=== PATIENT | female | born 1955 | race Caucasian/White ===

== ENCOUNTER 2017-08-24 06:37 | Observation (INO) | payer OTHER ==
[~2017-08-24] VITALS: Ht 160 cm; Wt 105.8 kg
[~2017-08-24 06:37] MED LIST: GLUCOPHAGE500 MG; LEVEMIR100 UNIT/1; NOVOLOG MI100 UNITS/; TOPROL XL50 MG PO
[2017-08-24 07:13] LABS: BASOPHILS # (AUTO) 0.1 (0.0-0.1); EOSINOPHILS # (AUTO) 0.2 (0.0-0.4); EOSINOPHILS % 3.2 % (0.0-6.0); HEMATOCRIT 44.1 % (34.2-44.1); HEMOGLOBIN 13.2 g/dL (12.0-16.0); LYMPHOCYTES # (AUTO) 1.2 (1.0-3.2); LYMPHOCYTES % 23.4 % (18.0-39.1); MEAN CORPUSCULAR HEMOGLOBIN 26.4 pg (28-32); MEAN CORPUSCULAR HGB CONC 29.9 g/dL (31-35); MEAN CORPUSCULAR VOLUME 88.2 fL (81-99); MONOCYTES # (AUTO) 0.3 (0.2-0.8); MONOCYTES % 6.7 % (4.4-11.3); NEUTROPHILS # (AUTO) 3.3 (2.1-6.9); NEUTROPHILS % 65.1 % (38.7-80.0); PLATELET COUNT 188 x10e3/uL (140-360); RED CELL DISTRIBUTION WIDTH 14.8 % (11.7-14.4)
[2017-08-24 07:15] LABS: BILIRUBIN,URINE NEGATIVE (NEGATIVE); KETONES,URINE NEGATIVE (NEGATIVE); LEUKOCYTE ESTERASE ,URINE NEGATIVE (NEGATIVE); NITRITE,URINE NEGATIVE (NEGATIVE); PROTEIN,URINE DIPSTICK NEGATIVE (NEGATIVE); URINE UROBILINOGEN 0.2 mg/dL (0.2 - 1)
[2017-08-24 07:16] LABS: INR 0.94
[2017-08-24 07:17] LABS: PARTIAL THROMBOPLASTIN TIME 25.1 seconds (23.8-35.5)
[2017-08-24 07:18] LABS: CLARITY,URINE CLEAR (CLEAR); COLOR,URINE YELLOW (YELLOW)
[2017-08-24 07:24] LABS: ALBUMIN 3.6 g/dL (3.5-5.0); ALBUMIN/GLOBULIN RATIO 0.9 (0.8-2.0); ANION GAP 14.8 mmol/L (8-16); CALCIUM 9.2 mg/dL (8.4-10.2); CREATININE, SERUM 1.12 mg/dL (0.57-1.11); POTASSIUM 4.8 mmol/L (3.5-5.1)
[2017-08-24] MEDS ORDERED: SODIUM CHLORIDE 0.9% 1000ML 1,000 ML IV STA (07:35)
[2017-08-24 07:42] LABS: CREATINE KINASE MB 1.7 ng/mL (0.00-5.00)
--- NOTE | 2017-08-24 07:42 | Diagnostic Imaging Report ---
PROCEDURE:CHEST 2 VIEWS TECHNIQUE:PA and lateral chest totaling 2 radiographs INDICATION:Shortness of breath and syncope COMPARISON:Patients [facility], , CHEST 2 VIEWS, 10/15/2016, 23:42. FINDINGS: Bilateral interstitial opacity, cardiomegaly and central vascular prominence. No sizable pleural effusion. Stable elevation of the right hemidiaphragm. Intact skeleton. CONCLUSION: Cardiomegaly with pulmonary edema. Dictated by: Lamonte Munoz M.D. on 08/24/2017 at 7:51 Electronically approved by: Lamonte Munoz M.D. on 08/24/2017 at 7:51
[2017-08-24 07:43] LABS: THYROID STIMULATING HORMONE 1.123 uIU/mL (0.350-4.940)
[2017-08-24 07:50] LABS: BACTERIA,URINE FEW /HPF; EPITHELIAL CELLS,URINE FEW /LPF; RBC,URINE 0-5 /HPF (0-5); WBC,URINE (MAN) 0-5 /HPF (0-5)
--- NOTE | 2017-08-24 07:57 | Diagnostic Imaging Report ---
History: Fall, syncope Comparison studies:CT head 09/13/2014 Technique: Axial images were obtained from the brain and cervical spine. Coronal and sagittal images reconstructed from the axial data. Intravenous contrast: None Findings: Head CT: Scalp/skull: No abnormalities. No fractures, blastic or lytic lesions. Brain sulci: Appropriate for age. Ventricles: Normal in size and configuration. No hydrocephalus. Extra-axial spaces: No masses. No fluid collections. Parenchyma: No abnormal densities. No masses, hemorrhage, acute or chronic cortical vascular insults. Sellar/suprasellar region: No abnormalities. Craniocervical junction: Patent foramen magnum. No Chiari one malformation. Cervical spine CT: Fractures: None. Soft tissues: Hypodense right lobe thyroid nodule with peripheral and central small calcifications measuring approximately 1.2 cm. Atlantoaxial articulation: Mild degenerative changes without acute abnormality. Alignment: Normal lordosis. No scoliosis. Cervicomedullary junction: No abnormalities. Patent foramen magnum. Vertebrae: No infection or neoplasm. Degenerative changes: Facet hypertrophy and uncinate process hypertrophy without significant canal stenosis or foraminal narrowing. Incidental findings: Atherosclerotic calcifications of the aortic arch and carotid bulbs. Impression: Head CT: 1. No acute abnormality. Cervical spine CT: 1. No acute abnormalities. Degenerative changes 2. Cannot exclude ligament, spinal cord and or vascular abnormalities on the basis of this examination. 3. Right thyroid nodule with peripheral and central small calcifications recommend further evaluation with nonemergent thyroid ultrasound Signed by: DR Riley Maya M.D. on 08/24/2017 7:54 AM
[2017-08-24] MEDS ORDERED: ASPIRIN 81 MG CHEW TAB PO ONE (10:45)
[2017-08-24] MEDS ORDERED: SODIUM CHLORIDE 0.9% 1000ML 1,000 ML ONE (11:15)
--- OUTSIDE RECORDS SUMMARY | 2017-08-24 13:02 | XMS REPORT ---
Author [facility] Address Unknown Phone Unavailable Care Team Providers Care Plan Rep Name Role Phone FLO TOLBERT Unavailable Unavailable Problems This patient has no known problems. Allergies, Adverse Reactions, Alerts This patient has no known allergies or adverse reactions. Medications This patient has no known medications. Results Test Description Test Time Test Comments Text Results Atomic Results Result Comments CHEST 2 VIEWS [facility] [address] [address] Patient Name: KALYANI TALAVERA MR #: [id number] : 1955 Age/Sex: 62/F Req #: [id number] Adm Physician: Ordered by: FLO TOLBERT MD Report #: [id number] Location: ER Room/Bed: Procedure: [id number] DX/CHEST 2 VIEWS Exam Date: 08/24/17 Exam Time: 0715 REPORT STATUS: Signed PROCEDURE: CHEST 2 VIEWS TECHNIQUE: PA and lateral chest totaling 2 radiographs INDICATION: Shortness of breath and syncope COMPARISON: [facility], DX, CHEST 2 VIEWS, 2016, 23:42. FINDINGS: Bilateral interstitial opacity, cardiomegaly and central vascular prominence. No sizable pleural effusion. Stable elevation of the right hemidiaphragm. Intact skeleton. CONCLUSION: Cardiomegaly with pulmonary edema. Dictated by: Lachelle Munoz M.D. on 08/24/2017 at 7:51 Electronically approved by: Lachelle Munoz M.D. on 08/24/2017 at 7:51 Dictated By: LACHELLE MUNOZ MD 0 Transcribed By: ZOLTAN on 08/24/17750 COPY TO: FLO TOLBERT MD CT CERVICAL SPINE [place] [address] [address] Patient Name: KALYANI TALAVERA MR #: [id number] : 1955 Age/Sex: 62/F Req #: [id number] Adm Physician: Ordered by: FLO TOLBERT MD Report #: [id number] Location: ER Room/Bed: Procedure: [id number] CT/CT CERVICAL SPINE WO Exam Date: 08/24/17 Exam Time: 0710 REPORT STATUS: Signed History: Fall, syncope Comparison studies:CT head 09/13/2014 Technique: Axial images were obtained from the brain and cervical spine. Coronal and sagittal images reconstructed from the axial data. Intravenous contrast: None Findings: Head CT: Scalp /skull: No abnormalities. No fractures, blastic or lytic lesions. Brain sulci: Appropriate for age. Ventricles: Normal in size and configuration. No hydrocephalus. Extra-axial spaces: No masses. No fluid collections. Parenchyma: No abnormal densities. No masses, hemorrhage, acute or chronic cortical vascular insults. Sellar/suprasellar region: No abnormalities. Craniocervical junction: Patent foramen magnum. No Chiari one malformation. Cervical spine CT: Fractures: None. Soft tissues: Hypodense right lobe thyroid nodule with peripheral and central small calcifications measuring approximately 1.2 cm. Atlantoaxial articulation: Mild degenerative changes without acute abnormality. Alignment: Normal lordosis. No scoliosis. Cervicomedullary junction: No abnormalities. Patent foramen magnum. Vertebrae: No infection or neoplasm. Degenerative changes: Facet hypertrophy and uncinate process hypertrophy without significant canal stenosis or foraminal narrowing. Incidental findings: Atherosclerotic calcifications of the aortic arch and carotid bulbs. Impression: Head CT: 1. No acute abnormality. Cervical spine CT: 1. No acute abnormalities. Degenerative changes 2. Cannot exclude ligament, spinal cord and or vascular abnormalities on the basis of this examination. 3. Right thyroid nodule with peripheral and central small calcifications recommend further evaluation with nonemergent thyroid ultrasound Signed by : DR Riley Maya M.D. on 08/24/2017 7:54 AM Dictated By: RILEY WYNN MD 3 Transcribed By: JIM on 08/24/17753 COPY TO: FLO TOLBERT MD CT BRAIN [place] [address] [address] Patient Name: KALYANI TALAVERA MR #: [id number] : 1955 Age/Sex: 62/F Req #: [id number] Adm Physician: Ordered by: FLO TOLBERT MD Report #: [id number] Location: ER Room/Bed: Procedure: [id number] CT/CT BRAIN WO Exam Date: 08/24/17 Exam Time: 0710 REPORT STATUS: Signed History: Fall, syncope Comparison studies:CT head 09/13/2014 Technique: Axial images were obtained from the brain and cervical spine. Coronal and sagittal images reconstructed from the axial data. Intravenous contrast: None Findings: Head CT: Scalp/skull : No abnormalities. No fractures, blastic or lytic lesions. Brain sulci : Appropriate for age. Ventricles: Normal in size and configuration. No hydrocephalus. Extra-axial spaces: No masses. No fluid collections. Parenchyma: No abnormal densities. No masses, hemorrhage, acute or chronic cortical vascular insults. Sellar/suprasellar region: No abnormalities. Craniocervical junction: Patent foramen magnum. No Chiari one malformation. Cervical spine CT: Fractures: None. Soft tissues: Hypodense right lobe thyroid nodule with peripheral and central small calcifications measuring approximately 1.2 cm. Atlantoaxial articulation: Mild degenerative changes without acute abnormality. Alignment: Normal lordosis. No scoliosis. Cervicomedullary junction: No abnormalities. Patent foramen magnum. Vertebrae: No infection or neoplasm. Degenerative changes: Facet hypertrophy and uncinate process hypertrophy without significant canal stenosis or foraminal narrowing. Incidental findings: Atherosclerotic calcifications of the aortic arch and carotid bulbs. Impression: Head CT: 1. No acute abnormality. Cervical spine CT: 1. No acute abnormalities. Degenerative changes 2. Cannot exclude ligament, spinal cord and or vascular abnormalities on the basis of this examination. 3. Right thyroid nodule with peripheral and central small calcifications recommend further evaluation with nonemergent thyroid ultrasound Signed by : DR Riley Maya M.D. on 08/24/2017 7:54 AM Dictated By: RILEY WYNN MD [id number] Transcribed By: JIM on 08/24/17 3263 COPY TO: FLO TOLBERT MD
[2017-08-24] MEDS ORDERED: DEXTROSE 50% SYRINGE 50 ML IV PRN (15:00)
[2017-08-24] MEDS ORDERED: FUROSEMIDE INJ 10 MG/ML 4 ML VIAL IV ONE (15:00)
[2017-08-24 15:38] LABS: CREATINE KINASE 41 IU/L (29-168)
[2017-08-24 17:11] VITALS: BP 138/78
[2017-08-24 17:13] VITALS: BP 138/78
[2017-08-24] MEDS: INSULIN REGULAR, HUMAN 100 UNIT/1 ML 3ML VIAL SQ SCH ×2 (17:51→21:42)
[2017-08-24 18:41] VITALS: BP_SYST 129; BP_SYST 140; BP_DIAS 64; BP_DIAS 70
[2017-08-24 18:42] VITALS: BP 130/69
[2017-08-24 20:00] VITALS: BP 136/67
[2017-08-24] MEDS: HYDROCODONE/APAP 5MG-325MG TAB PO PRN (21:42)
[2017-08-25] VITALS (7 sets, daily range): BP systolic 137–172; BP diastolic 61–73
[2017-08-25 01:08] LABS: CREATINE KINASE MB 1.3 ng/mL (0.00-5.00)
[2017-08-25] MEDS: HYDROCODONE/APAP 5MG-325MG TAB PO PRN ×2 (03:10→21:45)
[2017-08-25 07:00] LABS: BASOPHILS # (AUTO) 0.1 (0.0-0.1); BASOPHILS % 1.3 % (0.0-1.0); EOSINOPHILS # (AUTO) 0.2 (0.0-0.4); EOSINOPHILS % 5.1 % (0.0-6.0); HEMATOCRIT 39.4 % (34.2-44.1); HEMOGLOBIN 11.9 g/dL (12.0-16.0); LYMPHOCYTES # (AUTO) 1.4 (1.0-3.2); LYMPHOCYTES % 28.8 % (18.0-39.1); MEAN CORPUSCULAR HEMOGLOBIN 26.3 pg (28-32); MEAN CORPUSCULAR HGB CONC 30.2 g/dL (31-35); MONOCYTES # (AUTO) 0.4 (0.2-0.8); MONOCYTES % 8.7 % (4.4-11.3); NEUTROPHILS # (AUTO) 2.6 (2.1-6.9); NEUTROPHILS % 55.5 % (38.7-80.0); PLATELET COUNT 177 x10e3/uL (140-360); RED BLOOD COUNT 4.53 x10e6/uL (3.6-5.1); RED CELL DISTRIBUTION WIDTH 14.8 % (11.7-14.4)
[2017-08-25 07:21] LABS: ALBUMIN 3.3 g/dL (3.5-5.0); ANION GAP 12.7 mmol/L (8-16); CALCIUM 8.8 mg/dL (8.4-10.2); CHOL/HDL RATIO 6.2 (3.0-3.6); CREATININE, SERUM 1.05 mg/dL (0.57-1.11); POTASSIUM 4.7 mmol/L (3.5-5.1)
[2017-08-25] MEDS: FUROSEMIDE INJ 10 MG/ML 4 ML VIAL IV SCH (08:50)
[2017-08-25] MEDS: ASPIRIN 81 MG ENTERIC COATED PO SCH (08:50)
[2017-08-25] MEDS: INSULIN REGULAR, HUMAN 100 UNIT/1 ML 3ML VIAL SQ SCH ×4 (08:51→21:15)
--- NOTE | 2017-08-25 14:24 | Consultation ---
DATE OF CONSULTATION: August 24, 2017 REQUESTING PHYSICIAN: Dr. Lucille Huerta. REASON FOR CONSULTATION: Syncope. HISTORY OF PRESENT ILLNESS: This is a 62-year-old woman with history of diabetes mellitus, hypertension, and hyperlipidemia who presented after an episode of syncope. She reports she had been feeling well when she went to sleep last night. This morning, she woke up around 2:30 in order to go to the rest room. She felt shaky and checked her blood sugar which she noted was 41. She therefore made a cup of coffee with some sugar in an attempt to bring up her blood glucose. While she was sitting at the table, she felt a little lightheadedness and lost consciousness. She does not recall the episode but reports she woke up on the floor and hit her head against a table on the way down. She denied any preceding chest pain or palpitations. However, she does endorse lower extremity edema for some time as well as 2-pillow orthopnea and PND for the last month and dyspnea on exertion about approximately 20 feet for the last 2 to 3 weeks. REVIEW OF SYSTEMS: Negative except as per HPI. PAST MEDICAL HISTORY 1. Diabetes mellitus. 2. Hypertension. 3. Hyperlipidemia. PAST SURGICAL HISTORY: Appendectomy and foot surgery. ALLERGIES: NO KNOWN DRUG ALLERGIES. MEDICATIONS: Please see EMR. SOCIAL HISTORY: She quit smoking 10 years ago. Previous smoker a pack and half a day for 15 years. No alcohol or illicit drugs. FAMILY HISTORY: Pertinent for sister with coronary artery bypass. PHYSICAL EXAMINATION VITAL SIGNS: Temperature 98.4 degrees, pulse 61, respiratory rate 18, blood pressure 138/78, and oxygen saturation 96% on room air. GENERAL: Obese woman, in no acute distress. HEENT: Normocephalic, atraumatic. Pupils equal. No scleral icterus. NECK: Supple. No thyromegaly, cervical lymphadenopathy, or carotid bruits. LUNGS: Clear to auscultation other than crackles at the bases. No wheezes. CARDIOVASCULAR: Normal rate, regular rhythm. No murmur. Normal S1, S2. ABDOMEN: Soft and nontender. EXTREMITIES: Trace edema. NEUROLOGIC: Nonfocal exam. LABS: WBC 5.05, hemoglobin 13.2, hematocrit 44.1, and platelets 188,000. Sodium 138, chloride 103, CO2 of 25, BUN 22, and creatinine 1.12. Troponin 0.014. BNP 17.8. EKG: Sinus tachycardia with anteroseptal infarct, age undetermined. IMPRESSIONS 1. Syncope. 2. Abnormal electrocardiogram. 3. Diabetes mellitus. 4. Hypertension. 5. Hyperlipidemia. 6. Chronic kidney disease. RECOMMENDATIONS: Maintain patient on telemetry to monitor for any arrhythmias that explain the patient's syncope. I will obtain carotid Dopplers. Echocardiogram did not reveal any cardiac etiologies for the patient's syncope, possibly could be related to patient's low blood sugar. In addition, the patient has diastolic heart failure. Agree with diuresis. Monitor creatinine closely. Patient will need ischemic evaluation given her risk factors and abnormal EKG once she is improved. If she is symptom-free, this may be done as an outpatient. Thank you for this consult. We will continue to follow. Job#: [id number] CF MTDCalvin
--- NOTE | 2017-08-25 15:18 | Progress Note ---
DATE: August 25, 2017 CARDIOLOGY PROGRESS NOTE SUBJECTIVE: Patient denies chest pain. She is still having some shortness of breath. She is currently undergoing carotid Doppler at bedside. OBJECTIVE VITAL SIGNS: Temperature 97 degrees, pulse 72, respiratory rate 18, blood pressure 140/63, and oxygen saturation 96% on room air. GENERAL: Obese woman, awake, alert, in no acute distress. LUNGS: Clear to auscultation bilaterally other than crackles at the bases. CARDIOVASCULAR: Normal rate, regular rhythm. No murmur. Normal S1, S2. ABDOMEN: Soft and nontender. EXTREMITIES: Trace edema. CARDIAC MEDICATIONS 1. Furosemide 40 mg IV daily. 2. Aspirin 81 mg p.o. q.a.m. LABS: WBC 4.69, hemoglobin 11.9, hematocrit 39.4, platelets 177. Sodium 139, potassium 4.7, chloride 103, CO2 28, BUN 19, creatinine 1.05. Troponin 0.006. Cholesterol 181, triglycerides 216, LDL 109, HDL 29. Echocardiogram with normal LV size and function with mild LVH. Pseudonormal LV filling pattern consistent with elevated LA pressures. Trivial pericardial effusion was noted. TELEMETRY: Normal sinus rhythm. IMPRESSION 1. Syncope. 2. Acute diastolic heart failure. 3. Diabetes mellitus. 4. Hypertension. 5. Hyperlipidemia. RECOMMENDATIONS: Continue diuresis. Strict I's and O's as well as daily weights. Monitor creatinine closely with diuresis. Continue patient on telemetry while admitted. Patient will need an outpatient stress test for further evaluation of her abnormal EKG. Thank you for this consult. We will continue to follow. Job#: [id number]
[2017-08-25] MEDS ORDERED: METOPROLOL SUCCINATE 50 MG TAB XL PO ONE (22:45)
[2017-08-26] MEDS: HYDROCODONE/APAP 5MG-325MG TAB PO PRN (04:46)
[2017-08-26 05:00] VITALS: BP 181/70
[2017-08-26] MEDS: ASPIRIN 81 MG ENTERIC COATED PO SCH (07:45)
[2017-08-26] MEDS: FUROSEMIDE INJ 10 MG/ML 4 ML VIAL IV SCH (07:45)
[2017-08-26] MEDS: INSULIN REGULAR, HUMAN 100 UNIT/1 ML 3ML VIAL SQ SCH ×2 (07:46→11:30)
[2017-08-26 07:51] VITALS: BP 168/77
[2017-08-26 08:30] VITALS: BP 168/77
[2017-08-26] MEDS ORDERED: METOPROLOL SUCCINATE 50 MG TAB XL PO SCH (09:00)
--- NOTE | 2017-08-26 12:24 | Progress Note ---
DATE: NO DICTATION. 31 seconds. Job#: [id number] GH
[2017-08-26 12:30] VITALS: BP 144/64
--- NOTE | 2017-08-26 14:09 | Progress Note ---
DATE: LOCATION: Room 175. PATIENT OF: Dr. Lucille Huerta. The patient is with palpitations and syncopal spell. The patient has remained stable, having no further spells of syncope. CAT scan of the brain showed no acute pathology. The blood pressure has been 160/77 and pulse 86. The blood sugar has remained as high as 296. The carotid Doppler showed no acute pathology. The patient is feeling okay. No speech disorder. No visual disturbance. No focal paresthesia. Patient was explained there is no evidence to suspect any acute cerebrovascular event. The syncopal spell seems most likely related to hypoglycemia. The patient was advised to be careful with the blood sugar, try to lose some weight and whenever the attending physician wants to discharge her, will review labs. Job#: [id number] KEVIN
[2017-08-26 16:00] VITALS: BP 118/62
--- NOTE | 2017-08-27 09:09 | Consultation ---
DATE OF CONSULTATION: August 25, 2017 at 10 a.m. NEUROLOGICAL CONSULTATION REASON FOR CONSULTATION: Syncopal spells. This is a 62-year-old female who has history of diabetes, hypertension. The patient states on the day of admission she woke up at 2 o'clock in the morning. She went to the bathroom and then she went to the kitchen to have a cup of coffee. She checked her blood sugar and it was 41. Then she sat down and she started feeling lightheaded and apparently she passed out. She lives alone. There was no evidence of tongue biting or sphincter dysfunction. She never had an episode like this in the past. At the present time, she is doing fine with no headaches, no dizziness, no speech or swallowing difficulty, no focal or focal weakness. No chest pain or palpitations. PAST MEDICAL HISTORY: History of hypertension, diabetes mellitus type 2, hyperlipidemia, obesity. PAST SURGICAL HISTORY: Appendectomy. MEDICATIONS: Have been reviewed electronically. SOCIAL HISTORY: She denies smoking. She quit several years ago. She does not drink alcohol. FAMILY HISTORY: Some with coronary artery disease. REVIEW OF SYSTEMS: All 12 steps negative, except what is described above. PHYSICAL EXAMINATION VITAL SIGNS: Blood pressure 137/61, pulse 72, temperature 96.6. Weight 230 pounds. LUNGS: Clear to auscultation. HEART: Regular sinus rhythm with no murmur. ABDOMEN: Soft and nontender. No organomegaly. LOWER EXTREMITIES: Some mild swelling of both lower extremities, no cyanosis, no clubbing. NEUROLOGIC: Alert and oriented x3. Speech is clear with no dysarthria or dysphasia. Cranial nerves: Pupils are both equal and reactive. Extraocular movements were full. No facial weakness. Facial sensation normal. Tongue protrudes midline. Motor power: Upper and lower extremities showed no evidence of weakness in either proximal or distal muscles. Deep tendon reflexes: Triceps, biceps, radials 1+. Knee jerk 1+. Ankle jerk absent bilaterally. Plantar stimulation down bilaterally. The patient states that she has neuropathy, diabetic type. Coordination: [id number]-bn-[id number] is normal. HEAD: Normocephalic. NECK: Supple. Carotid pulsations were present bilaterally with no bruits. LABORATORY DATA: CBC shows a white count of 4600 with a hemoglobin 11.9, hematocrit 39.4 and platelets 177,000. Chemistry: Sodium 139, potassium 4.7, BUN 19, creatinine 1.5. Estimated GFR 53. Blood sugar fluctuating between 230 and 296. Liver enzymes are all normal. Triglycerides elevated at 216, cholesterol 181. Urinalysis negative. IMAGING: CAT scan of the brain shows no acute pathology, chronic small vessel disease. Cervical spine also showed no acute pathology. Carotid Doppler showed no evidence of significant flow impairment. IMPRESSION 1. Syncopal spell, unspecified. 2. Acute hypoglycemia. 3. Diabetes mellitus type 2. 4. Hypertension. 5. Hyperlipidemia. 6. Obesity. RECOMMENDATIONS: The patient was explained about the findings. Syncope does not seem to be related to cardiovascular problem or disease. Will discuss with the attending physician. Will see her tomorrow. Job#: [id number]
== END 2017-08-26 16:20 | disposition home or self-care (01) ==
LOC: ER 06:37 → ERHOLD 13:00 → IMCU 16:11
PROVIDERS: ADMIT Internal Medicine; ATTEND Internal Medicine
DX: R55 Syncope and collapse (principal); E11.649 Type 2 diabetes mellitus with hypoglycemia without coma; E11.42 Type 2 diabetes mellitus with diabetic polyneuropathy; E78.5 Hyperlipidemia, unspecified; J44.9 Chronic obstructive pulmonary disease, unspecified; R94.31 Abnormal electrocardiogram [ECG] [EKG]; Z87.891 Personal history of nicotine dependence; E66.9 Obesity, unspecified; I13.0 Hypertensive heart and chronic kidney disease with heart failure and stage 1 through stage 4 chronic kidney disease, or unspecified chronic kidney disease; I50.31 Acute diastolic (congestive) heart failure; N18.9 Chronic kidney disease, unspecified; Z68.41 Body mass index [BMI] 40.0-44.9, adult
CPT/HCPCS: 36415 ×3; 70450; 71020; 72125; 80053 ×2; 80061; 81001; 82550 ×2; 82553 ×2; 82948 ×3; 83036; 83735; 83880; 84443; 84484 ×2; 85025 ×2; 85610; 85730; 87040; 87086; 87400; 93005; 93306; 93880; 97139; 99285; G0378 ×3; J1940 ×3; J7030; 71046

== ENCOUNTER 2017-09-25 09:52 | Inpatient (IN) | payer OTHER ==
[~2017-09-25] VITALS: Ht 160 cm; Wt 107.8 kg
[2017-09-25] MEDS: ALBUTEROL SULF 0.083% NEB SOLN 3 ML NEB NEB SCH (01:10)
--- OUTSIDE RECORDS SUMMARY | 2017-09-25 09:54 | XMS REPORT | Continuity of Care Document ---
Author Author [facility] Organization 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 No 08/24/17 5:06pm If yes, is advance directive on file with [facility]? No 08/24/17 5:06pm If not on file with [facility] will patient provide a copy? No 08/24/17 5:06pm Do you have a Directive to Physician? No 08/24/17 8:23am Do you have a Medical Power of Warp Tester? No 08/24/17 8:23am Do you have an out of hospital Do Not Resuscitate Order? No 08/24/17 8:23am Do you have any special needs we should be aware of? No 08/24/17 8:23am Do you have a support person here with you today? Yes 08/24/17 8:23am Did patient receive Notice of Privacy Practices? Yes 08/24/17 8:23am Did patient receive patient rights and responsibilities? Yes 08/24/17 8:23am Problems Medical Problem Onset Date Status Diabetes type 2, uncontrolled Unknown Acute Hyperglycemia Unknown Acute Pneumonia Unknown Acute Syncope Unknown Medications Current Home Medications Medication Dose Units Route Directions Days Qty Instructions Start Date Insulin Aspart (Novolog Mix 70-30 Vial) 100 Units/Ml Ml Insulin Detemir (Levemir) 100 Unit/1 Ml Vial Metformin Hcl (Glucophage) 500 Mg Tablet Metoprolol Succinate (Toprol Xl) 50 Mg Tab.er.24h 50 Oral Twice A Day for Elevated Blood Pressure Social History Social History Problem Response Recorded Date/Time Onset Date Status Hx Psychiatric Problems No 08/24/2017 5:06pm Not Applicable Not Applicable Hx Eating Disorder No 08/24/2017 5:06pm Not Applicable Not Applicable Hx Substance Use Disorder No 08/24/2017 5:06pm Not Applicable Not Applicable Hx Depression No 08/24/2017 5:06pm Not Applicable Not Applicable Hx Alcohol Use No 08/24/2017 5:06pm Not Applicable Not Applicable Hx Substance Use Treatment No 08/24/2017 5:06pm Not Applicable Not Applicable Hx Physical Abuse No 08/24/2017 5:06pm Not Applicable Not Applicable Hospital Discharge Instructions No hospital discharge instruction information available. 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 Immunizations No immunization information available. Vital Signs Acute Vital Signs Vital Response Date/Time Temperature (Fahrenheit) 97.2 degrees F (97.6 - 99.5) 08/26/2017 12:30pm Pulse Pulse Rate (adult) 64 bpm (60 - 90) 08/26/2017 12:30pm Respiratory Rate 20 bpm (12 - 24) 08/26/2017 12:30pm Blood Pressure 144/64 mm Hg 08/26/2017 12:30pm Height 5 ft 3 in 08/24/2017 6:49am Weight 233.25 lb 08/25/2017 11:55pm Body Mass Index 41.3 kg/m^2 08/25/2017 11:55pm Results Laboratory Results Test Name Result Units Flags Reference Collection Date/Time Result Date/ Time Comments White Blood Count 4.69 x10e3/uL L 4.8-10.8 08/25/2017 6:20am 08/25/2017 7:08am Red Blood Count 4.53 x10e6/uL 3.6-5.1 08/25/2017 6:20am 08/25/2017 7: 08am Hemoglobin 11.9 g/dL L 12.0-16.0 08/25/2017 6:20am 08/25/2017 7:08am Hematocrit 39.4 % 34.2-44.1 08/25/2017 6:20am 08/25/2017 7:08am Mean Corpuscular Volume 87.0 fL 81-99 08/25/2017 6:20am 08/25/2017 7: 08am Mean Corpuscular Hemoglobin 26.3 pg L 28-32 08/25/2017 6:20am 2017 7:08am Mean Corpuscular Hemoglobin Concent 30.2 g/dL L 31-35 08/25/2017 6:20am 08/25/2017 7:08am Red Cell Distribution Width 14.8 % H 11.7-14.4 08/25/2017 6:20am 2017 7:08am Platelet Count 177 x10e3/uL 140-360 08/25/2017 6:20am 08/25/2017 7: 08am Neutrophils (%) (Auto) 55.5 % 38.7-80.0 08/25/2017 6:20am 08/25/2017 7: 08am Lymphocytes (%) (Auto) 28.8 % 18.0-39.1 08/25/2017 6:20am 08/25/2017 7: 08am Monocytes (%) (Auto) 8.7 % 4.4-11.3 08/25/2017 6:20am 08/25/2017 7: 08am Eosinophils (%) (Auto) 5.1 % 0.0-6.0 08/25/2017 6:20am 08/25/2017 7: 08am Basophils (%) (Auto) 1.3 % H 0.0-1.0 08/25/2017 6:20am 08/25/2017 7: 08am IM GRANULOCYTES % 0.6 % 0.0-1.0 08/25/2017 6:20am 08/25/2017 7:08am Neutrophils # (Auto) 2.6 2.1-6.9 08/25/2017 6:20am 08/25/2017 7:08am Lymphocytes # (Auto) 1.4 1.0-3.2 08/25/2017 6:20am 08/25/2017 7:08am Monocytes # (Auto) 0.4 0.2-0.8 08/25/2017 6:20am 08/25/2017 7:08am Eosinophils # (Auto) 0.2 0.0-0.4 08/25/2017 6:20am 08/25/2017 7:08am Basophils # (Auto) 0.1 0.0-0.1 08/25/2017 6:20am 08/25/2017 7:08am Absolute Immature Granulocyte (auto 0.03 x10e3/uL 0-0.1 08/25/2017 6: 20am 08/25/2017 7:08am Prothrombin Time 13.0 seconds 11.9-14.5 08/24/2017 6:50am 08/24/2017 7: 19am Prothromb Time International Ratio 0.94 08/24/2017 6:50am 2017 7:19am Oral Anticoagulant Therapy INR Values: 1. Low Intensity Therapy 1.5 - 2.0 2. Moderate Intensity Therapy 2.0 - 3.0 3. High Intensity Therapy(1) 2.5 - 3.5 4. High Intensity Therapy(2) 3.0 - 4.0 5. Panic Value INR > 5.0 Activated Partial Thromboplast Time 25.1 seconds 23.8-35.5 08/24/2017 6: 50am 08/24/2017 7:19am Urine Color YELLOW YELLOW 08/24/2017 6:50am 08/24/2017 7:18am Urine Clarity CLEAR CLEAR 08/24/2017 6:50am 08/24/2017 7:18am Urine Specific [place] 1.025 1.010-1.025 08/24/2017 6:50am 2017 7:18am Urine pH 5 5 - 7 08/24/2017 6:50am 08/24/2017 7:18am Urine Leukocyte Esterase NEGATIVE NEGATIVE 08/24/2017 6:50am 2017 7:18am Urine Nitrite NEGATIVE NEGATIVE 08/24/2017 6:50am 08/24/2017 7:18am Urine Protein NEGATIVE NEGATIVE 08/24/2017 6:50am 08/24/2017 7:18am Urine Glucose (UA) 3+ H NEGATIVE 08/24/2017 6:50am 08/24/2017 7:18am Urine Ketones NEGATIVE NEGATIVE 08/24/2017 6:50am 08/24/2017 7:18am Urine Urobilinogen 0.2 mg/dL 0.2 - 1 08/24/2017 6:50am 08/24/2017 7: 18am Urine Bilirubin NEGATIVE NEGATIVE 08/24/2017 6:50am 08/24/2017 7: 18am Urine Blood NEGATIVE NEGATIVE 08/24/2017 6:50am 08/24/2017 7:18am Urine WBC 0-5 /HPF 0-5 08/24/2017 6:50am 08/24/2017 7:50am Urine RBC 0-5 /HPF 0-5 08/24/2017 6:50am 08/24/2017 7:50am Urine Bacteria FEW /HPF NONE 08/24/2017 6:50am 08/24/2017 7:50am Urine Epithelial Cells FEW /LPF NONE 08/24/2017 6:50am 08/24/2017 7: 50am Sodium Level 139 mmol/L 136-145 08/25/2017 6:20am 08/25/2017 7:23am Potassium Level 4.7 mmol/L 3.5-5.1 08/25/2017 6:20am 08/25/2017 7:23am Chloride Level 103 mmol/L 98-107 08/25/2017 6:20am 08/25/2017 7:23am Influenza Virus Types A,B Antigen NEGATIVE NEGATIVE 08/24/2017 6:50am 08/24/2017 7:39am Carbon Dioxide Level 28 mmol/L 22-29 08/25/2017 6:20am 08/25/2017 7: 23am Anion Gap 12.7 mmol/L 8-16 08/25/2017 6:20am 08/25/2017 7:23am Blood Urea Nitrogen 19 mg/dL 7-08/25/2017 6:20am 08/25/2017 7:23am Creatinine 1.05 mg/dL 0.57-1.11 08/25/2017 6:20am 08/25/2017 7:23am BUN/Creatinine Ratio 18 6-25 08/25/2017 6:20am 08/25/2017 7:23am Estimat Glomerular Filtration Rate 53 ML/MIN L 60- 08/25/2017 6:20am 08/2017 7:23am Ranges were taken from the National Kidney Disease Education Program and the National Kidney Foundation literature. Reference ranges: 60 or greater: Normal 16-59 (for 3 consecutive months): Chronic kidney disease 15 or less: Kidney failure Glucose Level 249 mg/dL H 74-118 08/25/2017 6:20am 08/25/2017 7:23am Calcium Level 8.8 mg/dL 8.4-10.2 08/25/2017 6:20am 08/25/2017 7:23am Bedside Glucose 373 mg/dL H 70-120 08/26/2017 12:03pm 08/26/2017 1:07pm Meter ID: [id number] Hemoglobin A1c Percent 7.6 % H 4.0-7.0 08/24/2017 3:15pm 08/24/2017 6: 39pm Magnesium Level 2.0 MG/DL 1.3-2.1 08/24/2017 6:50am 08/24/2017 7:32am Total Bilirubin 0.5 mg/dL 0.2-1.2 08/25/2017 6:20am 08/25/2017 7:23am Aspartate Amino Transf (AST/SGOT) 15 IU/L 5-34 08/25/2017 6:20am 2017 7:23am Alanine Aminotransferase (ALT/SGPT) 16 IU/L 0-55 08/25/2017 6:20am 08/2017 7:23am Total Protein 6.7 g/dL 6.5-8.1 08/25/2017 6:20am 08/25/2017 7:23am Albumin 3.3 g/dL L 3.5-5.0 08/25/2017 6:20am 08/25/2017 7:23am Globulin 3.4 g/dL 2.3-3.5 08/25/2017 6:20am 08/25/2017 7:23am Albumin/Globulin Ratio 1.0 0.8-2.0 08/25/2017 6:20am 08/25/2017 7: 23am Alkaline Phosphatase 62 IU/L 40-150 08/25/2017 6:20am 08/25/2017 7: 23am Triglycerides Level 216 MG/DL H 0-149 08/25/2017 6:20am 08/25/2017 7: 23am Cholesterol Level 181 MD/DL 0-199 08/25/2017 6:20am 08/25/2017 7:23am Less than 200 mg/dL Low Risk 201 - 239 mg/dL Borderline Risk 240 mg/dl and greater High Risk LDL Cholesterol 109 MG/DL 60-130 08/25/2017 6:20am 08/25/2017 7:23am HDL Cholesterol 29 MG/DL L 40-60 08/25/2017 6:20am 08/25/2017 7:23am Cholesterol/HDL Ratio 6.2 H 3.0-3.6 08/25/2017 6:20am 08/25/2017 7: 23am B-Type Natriuretic Peptide 17.8 pg/mL 0-100 08/24/2017 6:50am 2017 7:47am Creatine Kinase 41 IU/L 29-168 08/25/2017 12:17am 08/25/2017 1:09am Creatine Kinase MB 1.30 ng/mL 0.00-5.00 08/25/2017 12:17am 08/25/2017 1 :09am Troponin I 0.006 ng/mL 0-0.300 08/25/2017 12:17am 08/25/2017 1:09am Thyroid Stimulating Hormone (TSH) 1.123 uIU/mL 0.350-4.940 08/24/2017 6: 50am 08/24/2017 7:47am Microbiology Results Procedure Source Organism/Result Collection Date/Time Result Date/Time Result Status Blood Culture Blood NO GROWTH AFTER 48 HOURS 6:40am 08/26/2017 7:45am Preliminary Procedures Procedure Status Date Provider(s) Computed tomography of brain without radiopaque contrast Active 02/09/17 JACQUES JANE MD Computed tomography of brain without radiopaque contrast Active 08/24/17 FLO TOLBERT MD Computed tomography of cervical spine without contrast Active 08/24/17 FLO TOLBERT MD X-ray of chest, two views Active 08/24/17 FLO TOLBERT MD Encounters Encounter Location Arrival/Admit Date Discharge/Depart Date Attending Provider Discharged Inpatient (obs) [facility] 08/24/17 1:00pm 10/08 4:20pm RUSSELL OLIVO MD Departed Emergency Room [facility] 04/17/17 11:09pm 04/18 3:16am JACQUES JANE MD Departed Emergency Room [facility] 02/09/17 9:43pm 2:38am JACQUES JANE MD Departed Emergency Room [facility] 12/29/16 7:19pm 1:00am JACQUES JANE MD
[2017-09-25] MEDS ORDERED: IPRATROPIUM BROMIDE 0.02% 2.5 ML NEB NEB STA ×2 (10:16→11:24)
[2017-09-25] MEDS ORDERED: ALBUTEROL SULF 0.083% NEB SOLN 3 ML NEB NEB STA ×2 (10:16→11:24)
[2017-09-25 11:05] LABS: BASOPHILS % 0.7 % (0.0-1.0); EOSINOPHILS # (AUTO) 0.3 (0.0-0.4); EOSINOPHILS % 4.7 % (0.0-6.0); HEMOGLOBIN 11.1 g/dL (12.0-16.0); LYMPHOCYTES # (AUTO) 1.1 (1.0-3.2); LYMPHOCYTES % 19.9 % (18.0-39.1); MEAN CORPUSCULAR HEMOGLOBIN 26.7 pg (28-32); MEAN CORPUSCULAR HGB CONC 30.8 g/dL (31-35); MEAN CORPUSCULAR VOLUME 86.5 fL (81-99); MONOCYTES # (AUTO) 0.3 (0.2-0.8); MONOCYTES % 5.6 % (4.4-11.3); NEUTROPHILS # (AUTO) 3.6 (2.1-6.9); NEUTROPHILS % 67.8 % (38.7-80.0); PLATELET COUNT 167 x10e3/uL (140-360); RED BLOOD COUNT 4.16 x10e6/uL (3.6-5.1); RED CELL DISTRIBUTION WIDTH 15.1 % (11.7-14.4)
--- NOTE | 2017-09-25 11:06 | Diagnostic Imaging Report ---
PROCEDURE: A single AP view of the chest. COMPARISON: Chest 2 views 08/24/2017. INDICATIONS: SHORTNESS OF BREATHE FINDINGS: Lines/tubes: None. Lungs: Bilateral multifocal airspace opacities. Low lung volumes are present bilaterally. No parenchymal mass. Pleura: There is no pleural effusion or pneumothorax. Heart and mediastinum: The heart and the mediastinum are unremarkable. Bones: No acute bony abnormality. IMPRESSION: Bilateral airspace opacities may represent atelectasis or developing pneumonia. Dictated by: Jaspal Sanchez M.D. on 09/25/2017 at 11:06 Electronically approved by: Jaspal Sanchez M.D. on 09/25/2017 at 11:06
[2017-09-25 11:15] LABS: INR 1.08; PROTHROMBIN TIME 13.2 seconds (11.9-14.5)
[2017-09-25 11:16] LABS: PARTIAL THROMBOPLASTIN TIME 23.7 seconds (23.8-35.5)
[2017-09-25 11:22] LABS: ALANINE AMINOTRANSFERASE 27 IU/L (0-55); ALBUMIN 3.4 g/dL (3.5-5.0); ALKALINE PHOSPHATASE 67 IU/L (40-150); ANION GAP 12.6 mmol/L (8-16); BLOOD UREA NITROGEN 26 mg/dL (7-26); BUN/CREATININE RATIO 23 (6-25); CALCIUM 8.7 mg/dL (8.4-10.2); CARBON DIOXIDE 27 mmol/L (22-29); CHLORIDE 99 mmol/L (98-107); CREATINE KINASE 79 IU/L (29-168); CREATININE, SERUM 1.15 mg/dL (0.57-1.11); EST GLOMERULAR FILTRATION RATE 48 ML/MIN (60-); GLUCOSE 158 mg/dL (74-118); POTASSIUM 3.6 mmol/L (3.5-5.1); SODIUM 135 mmol/L (136-145)
[2017-09-25] MEDS ORDERED: METHYLPREDNISOLONE SOD SUCC 125 MG/2ML VIAL IV ONE (11:30)
[2017-09-25 11:45] LABS: BILIRUBIN,URINE NEGATIVE (NEGATIVE); CLARITY,URINE CLEAR (CLEAR); COLOR,URINE COLORLESS (YELLOW); KETONES,URINE NEGATIVE (NEGATIVE); LEUKOCYTE ESTERASE ,URINE NEGATIVE (NEGATIVE); NITRITE,URINE NEGATIVE (NEGATIVE); PROTEIN,URINE DIPSTICK NEGATIVE (NEGATIVE); URINE UROBILINOGEN 0.2 mg/dL (0.2 - 1)
[2017-09-25 11:46] LABS: THYROID STIMULATING HORMONE 0.515 uIU/mL (0.350-4.940)
[2017-09-25 11:55] LABS: EPITHELIAL CELLS,URINE RARE /LPF
[2017-09-25] MEDS ORDERED: SODIUM CHLORIDE FLUSH 10 ML SYR INJ PRN (12:15)
[2017-09-25] MEDS ORDERED: AZITHROMYCIN 500MG/NS 250 ML 250 ML IV SCH (12:15)
[2017-09-25] MEDS ORDERED: ASPIRIN 81 MG CHEW TAB PO ONE (12:15)
--- NOTE | 2017-09-25 13:11 | Diagnostic Imaging Report ---
EXAM: CT Chest WITHOUT contrast INDICATION: \S\r/o pna / chf \[id number] \S\[id number] COMPARISON: Chest x-ray dated 10/15/2016 TECHNIQUE: Chest was scanned utilizing a multidetector helical scanner from the lung apex through the level of the adrenal glands without administration of IV contrast. Absence of intravenous contrast decreases sensitivity for detection of lymphadenopathy and vascular pathology. Coronal and sagittal reformations were obtained. Routine protocol was performed. IV CONTRAST: None COMPLICATIONS: None RADIATION DOSE: Total DLP: 462.77 mGy*cm Estimated effective dose: (DLP x 0.014 x size factor) mSv CTDIvol has been reviewed. It is below the limits set by the Radiation Protocol Committee (RPC). FINDINGS: LINES/ TUBES: None. LUNGS AND AIRWAYS: Evaluation of the lungs are limited by respiratory motion. Bibasilar subsegmental atelectasis. Pulmonary vascular congestion. Mildly increased areas of groundglass haziness. Airways are normal. PLEURA: The pleural spaces are clear. HEART AND MEDIASTINUM: Prominent heterogeneous right thyroid lobe. Few scattered mediastinal lymph nodes, the largest in the right paratracheal region measuring 1.6 cm (series 2, image 38). Limited for evaluation of hilar regions without intravenous contrast. No axillary lymphadenopathy. The heart is enlarged. There is no pericardial effusion. Main pulmonary artery measures 3.7 cm, suggestive of pulmonary hypertension. UPPER ABDOMEN: Hepatic steatosis. BONES: The visualized bony thorax is within normal limits. SOFT TISSUES: Unremarkable. IMPRESSION: 1. Evaluation of the lungs are limited priors for same motion. No definite focal consolidation to suggest pneumonia. 2. Cardiomegaly, pulmonary vascular congestion, and areas of mildly increased groundglass haziness, suggestive of mild interstitial edema. 3. Prominent heterogeneous right thyroid lobe with probably underlying nodules. Recommend further evaluation with nonurgent thyroid ultrasound. Signed by: Dr. Mohit Brandon MD on 09/25/2017 1:07 PM
[2017-09-25] MEDS: CEFTRIAXONE SOD 1 GM VIAL IV SCH (13:46)
[2017-09-25] MEDS: AZITHROMYCIN 500MG/NS 250 ML 250 ML IV SCH (13:46)
[2017-09-25] MEDS ORDERED: MUPIROCIN 2% OINT 22 GM TUBE TOP ONE (15:15)
--- NOTE | 2017-09-25 16:46 | History and Physical ---
HISTORY OF PRESENT ILLNESS: Ms. Painter is a 62-year-old female with history of diabetes, hypertension, hyperlipidemia, and depression who came to the emergency room complaining of a few weeks of worsening of dyspnea on exertion. Last night, she said she laid down and she had to sit up in bed because she was gasping for air and lower extremity edema. PAST MEDICAL HISTORY: Diabetes, hypertension, hyperlipidemia and depression. ALLERGIES: NO KNOWN DRUG ALLERGIES. SOCIAL HISTORY: She does not smoke and she does not drink. PHYSICAL EXAMINATION GENERAL: Today, she is awake and alert. VITAL SIGNS: No temperature available. Blood pressure 138/68. HEART: Regular rate. LUNGS: Bilateral bibasilar rales. ABDOMEN: Nontender and soft. EXTREMITIES: Lower extremities 1+ pitting edema. LABORATORY DATA: White count 5.37, hemoglobin 11.1, hematocrit 36, sodium 135, potassium 3.6, creatinine 1.15. Glucose 158. Coagulation normal. Urine does not show any white blood cells. Serology: Influenza negative. Blood cultures are pending. Chest x-ray is showing bilateral airspace opacity may represent atelectasis or developing pneumonia. Chest CT shows no focal consolidation to suggest pneumonia, cardiomegaly, pulmonary vascular congestion, mild interstitial edema. She has right ____ lobe heterogenous nodules. ASSESSMENT AND PLAN: Dyspnea on exertion, orthopnea, lower extremity edema, probably due to congestive heart failure. Hypertension. Diabetes. Hyperlipidemia. The plan at the present time is to admit the patient to the hospital. She is started on Azithromycin and Rocephin for probably pneumonia. Treatment with albuterol. We are going to start IV Lasix. We are going to get a pulmonary consult and a cardiology consult. All of this was discussed with the patient and all questions were answered to her satisfaction. Job#: [id number]
[2017-09-25 17:17] VITALS: BP 141/65
--- NOTE | 2017-09-25 17:31 | Consultation ---
DATE OF CONSULTATION: PULMONARY CONSULTATION REASON FOR CONSULTATION: Shortness of breath. HPI: Ms. Painter is a 62-year-old female. She is a regular patient of Dr. Huerta. Patient presented to the emergency room with worsening shortness of breath. She is on diuretics and she has been diagnosed with diastolic heart failure. Her last echo report from August 24 showed diastolic heart failure with LA enlargement; however, they were not able to measure the RVSP as patient did not have TR jet. She is denying any complaints of chest pain, nausea, vomiting, or shortness of breath. Shortness of breath has been going on for quite some time, but it has been progressively getting worse along with leg edema. REVIEW OF SYSTEMS GENERAL: Denies any fever or chills. HEENT: Denies any head trauma or head injury. ENT: Denies any earache, nosebleed, or throat pain. CVS: Denies any chest pain. RESPIRATORY: The patient has shortness of breath. The rest of the review systems are negative except as in HPI. PAST MEDICAL HISTORY: Diabetes, hypertension, and hyperlipidemia. PAST SURGICAL HISTORY: Appendectomy and foot surgery. FAMILY AND SOCIAL HISTORY: She smoked only 3 years in her life time. She does not smoke anymore. She does not drink. FAMILY HISTORY: Significant for hypertension. PHYSICAL EXAMINATION VITAL SIGNS: Temperature 98.2, pulse of 88, blood pressure 129/74, respiratory rate of 20, O2 sat 98% on 2 liters. SKIN: Warm and dry. GENERAL APPEARANCE: She is a middle-aged female, not in any obvious distress. She is awake and alert, following commands, responding to questions appropriately. HEENT: Head atraumatic, normocephalic. Pupils are reactive. NECK: Supple. CHEST: Crackles on the bases bilaterally. HEART: S1, S2 audible. ABDOMEN: Soft, nontender. EXTREMITIES: Pedal edema. NEUROLOGIC: Awake and alert, following commands. LABS: White count of 35.37, hemoglobin 11.1, platelets 167. Chemistries; sodium 135, potassium 3.6, carbon dioxide 27, BUN 26, creatinine 1.15. AST and ALT normal. INR is 1.08. Influenza serology is negative. CT of the chest, I have reviewed the images, not showing any evidence of interstitial lung disease. There is one lymph node enlarged d in the right paratracheal region, which can be reactive due to pulmonary vascular congestion. She has enlarged pulmonary artery and cardiomegaly. ASSESSMENT: Ms. Painter is a 62-year-old female who has worsening shortness of breath going on for the last 7 to 8 months, progressively getting worse. Last echo shows evidence of diastolic heart failure; however, RVSP was not measured as the patient did not have TR jet. She has enlarged pulmonary artery, has peal edema along with worsening shortness of breath. There is high likelihood that patient has pulmonary hypertension likely group 2 secondary to diastolic heart failure. She reports snoring and daytime sleepiness. There is high likelihood of sleep apnea as well. PLAN: I will discuss with cardiology if the patient can have right and left heart cath to measure the pressures. In the meantime, continue the patient on diuretics and nebulizers. Job#: [id number] MINDY
[2017-09-25 17:35] VITALS: BP 141/65
[2017-09-25] MEDS: FUROSEMIDE INJ 10 MG/ML 4 ML VIAL IV SCH (17:50)
[2017-09-25 19:26] LABS: CREATINE KINASE 74 IU/L (29-168)
[2017-09-25 20:00] VITALS: BP 157/69
[2017-09-25] MEDS: INSULIN GLARGINE 100 UNITS/1 ML 3ML PEN SQ SCH (22:00)
[2017-09-25] MEDS ORDERED: DEXTROSE 50% SYRINGE 50 ML IV PRN (22:45)
[2017-09-26] VITALS: BP 164/83
--- NOTE | 2017-09-26 00:11 | Consultation ---
DATE OF CONSULTATION: September 25, 2017 CARDIOLOGY CONSULTATION REQUESTING PHYSICIAN: Dr. Lucille Huerta. REASON FOR CONSULTATION: Dyspnea. HISTORY OF PRESENT ILLNESS: This is a 62-year-old woman with history hypertension, diabetes mellitus and hyperlipidemia who presented with shortness of breath. The patient has apparently had increasing shortness of breath with activity for the last few weeks. She endorses lower extremity edema for the last few months. Last night when she attempted to lay down, she was extremely short of breath and could not tolerate laying flat and had to sit up at the side of the bed. She denies chest pain, palpitations, lightheadedness or syncope. REVIEW OF SYSTEMS: Negative except as per HPI. PAST MEDICAL HISTORY: Diabetes mellitus, hypertension, hyperlipidemia. PAST SURGICAL HISTORY: Appendectomy, left foot surgery . ALLERGIES: NO KNOWN DRUG ALLERGIES. MEDICATIONS: Please see EMR. SOCIAL HISTORY: She quit smoking 10 years ago previously. She smoked a pack and a half a day for 15 years. No alcohol or illicit drugs. FAMILY HISTORY: Pertinent for sister with coronary artery disease, status post bypass. PHYSICAL EXAMINATION VITAL SIGNS: Temperature 98 degrees, pulse 75, respiratory rate 18, blood pressure 141/65, oxygen saturation 95% on 2 liters nasal cannula. GENERAL: A morbidly obese woman in no acute distress. HEENT: Normocephalic, atraumatic. Pupils are equal. No scleral icterus. NECK: Supple. No thyromegaly or cervical lymphadenopathy. No carotid bruits. LUNGS: Bibasilar crackles. Otherwise clear to auscultation, no wheezes. CARDIOVASCULAR: Normal rate, regular rhythm. No murmurs. Normal S1 and S2. ABDOMEN: Soft and nontender. EXTREMITIES: 1+ pitting edema in bilateral lower extremities. NEUROLOGIC: Nonfocal exam. LABORATORY DATA: WBC 5.37, hemoglobin 11.1, hematocrit 36, platelets 167,000, sodium 135, potassium 3.6, chloride 99, CO2 of 27, BUN 26, creatinine 1.15. Troponin less than 0.001. BNP 77. CT chest: Evaluation of the lungs are limited by respiratory motion. No definite focal consolidations to suggest pneumonia, cardiomegaly or pulmonary vascular congestion, and areas of mildly increased haziness suggestive of mild interstitial edema. Prominent heterogeneous right thyroid lobe with probably underlying nodules. Recommend further evaluation with non-urgent thyroid ultrasound. Chest x-ray: Bilateral air space opacities may represent atelectasis or developing pneumonia. IMPRESSION 1. [id number] diastolic heart failure. 2. Chronic kidney disease. 3. Continue current cardiac medications otherwise. RECOMMENDATIONS: The patient was actually scheduled to be seen in our office on Monday as she needed nuclear stress test for further evaluation of her abnormal EKG. Unfortunately, due to her renal function I would prefer to avoid coronary angiography. Will hold off on coronary angiography unless renal function stabilizes. Plan to proceed with right heart catheterization for further evaluation of suggested pulmonary hypertension by CT once the patient is able to lay flat, possibly Monday or . Furosemide has been increased to b.i.d. to augment diuresis. Thank you for this consult. We will continue to follow. Job#: [id number]
[2017-09-26] MEDS: IPRATROPIUM BROMIDE 0.02% 2.5 ML NEB NEB SCH ×4 (01:10→19:25)
[2017-09-26] MEDS: HYDROCODONE/APAP 5MG-325MG TAB PO PRN (01:56)
[2017-09-26 04:00] VITALS: BP 180/78
[2017-09-26] MEDS ORDERED: CLONIDINE HCL 0.1 MG TAB PO PRN (04:45)
[2017-09-26 06:56] LABS: BASOPHILS % 0.4 % (0.0-1.0); HEMOGLOBIN 10.9 g/dL (12.0-16.0); LYMPHOCYTES % 12.3 % (18.0-39.1); MEAN CORPUSCULAR HEMOGLOBIN 26.4 pg (28-32); MEAN CORPUSCULAR HGB CONC 31.1 g/dL (31-35); MEAN CORPUSCULAR VOLUME 84.7 fL (81-99); MONOCYTES # (AUTO) 0.4 (0.2-0.8); MONOCYTES % 5.1 % (4.4-11.3); NEUTROPHILS # (AUTO) 6.8 (2.1-6.9); NEUTROPHILS % 80.9 % (38.7-80.0); PLATELET COUNT 223 x10e3/uL (140-360); RED BLOOD COUNT 4.13 x10e6/uL (3.6-5.1); RED CELL DISTRIBUTION WIDTH 15.1 % (11.7-14.4)
[2017-09-26] MEDS: ALBUTEROL SULF 0.083% NEB SOLN 3 ML NEB NEB SCH ×4 (07:01→19:25)
[2017-09-26 07:17] LABS: CREATINE KINASE 67 IU/L (29-168)
[2017-09-26] MEDS: INSULIN REGULAR, HUMAN 100 UNIT/1 ML 3ML VIAL SQ SCH ×4 (07:19→21:27)
[2017-09-26 08:00] VITALS: BP 152/62
[2017-09-26] MEDS: ROPINIROLE HCL 2 MG TAB PO SCH ×2 (09:00→17:00)
[2017-09-26] MEDS: FUROSEMIDE INJ 10 MG/ML 4 ML VIAL IV SCH ×2 (09:00→21:28)
[2017-09-26] MEDS ORDERED: FUROSEMIDE INJ 10 MG/ML 4 ML VIAL IV SCH (09:00)
[2017-09-26 12:00] VITALS: BP 126/59
[2017-09-26] MEDS: CEFTRIAXONE SOD 1 GM VIAL IV SCH (12:45)
[2017-09-26] MEDS ORDERED: SODIUM CHLORIDE 0.9% 250ML 250 ML ONE (12:56)
[2017-09-26] MEDS: AZITHROMYCIN 500MG/NS 250 ML 250 ML IV SCH (13:00)
[2017-09-26 16:15] VITALS: BP 158/71
--- NOTE | 2017-09-26 17:08 | Progress Note ---
DATE: September 26, 2017 CARDIOLOGY PROGRESS NOTE SUBJECTIVE: Patient denies chest pain. She reports her shortness of breath is better. OBJECTIVE VITAL SIGNS: Temperature 97.2 degrees, pulse 66, respiratory rate 18, blood pressure 152/62, oxygen saturation 98% on 2 liters nasal cannula. GENERAL: Morbidly obese woman in no acute distress, sitting in chair. LUNGS: Bibasilar crackles although is clear to auscultation. CARDIOVASCULAR: Normal rate, regular rhythm. No murmur. Normal S1 and S2. ABDOMEN: Soft, nontender. EXTREMITIES: 1+ pitting edema bilateral lower extremities. CARDIAC MEDICATIONS: Furosemide 40 mg IV b.i.d. LABS: WBC 8.36, hemoglobin 10.9, hematocrit 35, platelets 223. IMPRESSION 1. [id number] diastolic heart failure. 2. Chronic kidney disease. 3. Suspected pulmonary arterial hypertension on CT. RECOMMENDATIONS: Increase diuresis. Plan for right heart catheterization once the patient is able to lie flat, likely . Due to her renal function, we will have patient follow up with us as an outpatient for a nuclear stress test. Defer coronary angiography unless patient develops concerning symptoms. Continue current cardiac medications otherwise. Thank you for this consult. We will continue to follow. Job#: [id number] DANY
[2017-09-26 18:34] LABS: ANION GAP 14.4 mmol/L (8-16); CALCIUM 8.7 mg/dL (8.4-10.2); CREATININE, SERUM 1.3 mg/dL (0.57-1.11); POTASSIUM 3.4 mmol/L (3.5-5.1)
[2017-09-26 20:00] VITALS: BP 145/62
[2017-09-26] MEDS: INSULIN GLARGINE 100 UNITS/1 ML 3ML PEN SQ SCH (21:27)
[2017-09-27] VITALS: BP 142/63
[2017-09-27] MEDS: IPRATROPIUM BROMIDE 0.02% 2.5 ML NEB NEB SCH ×4 (00:05→20:00)
[2017-09-27] MEDS: ALBUTEROL SULF 0.083% NEB SOLN 3 ML NEB NEB SCH ×6 (00:05→20:00)
[2017-09-27 04:00] VITALS: BP 150/66
[2017-09-27] MEDS: HYDROCODONE/APAP 5MG-325MG TAB PO PRN (05:57)
[2017-09-27 08:00] VITALS: BP 120/71
[2017-09-27] MEDS: ROPINIROLE HCL 2 MG TAB PO SCH ×2 (08:20→16:18)
[2017-09-27] MEDS: FUROSEMIDE INJ 10 MG/ML 4 ML VIAL IV SCH ×3 (08:20→21:10)
[2017-09-27] MEDS: INSULIN REGULAR, HUMAN 100 UNIT/1 ML 3ML VIAL SQ SCH ×4 (08:30→21:10)
--- NOTE | 2017-09-27 10:00 | Progress Note ---
DATE: September 27, 2017 CARDIOLOGY PROGRESS NOTE SUBJECTIVE: Patient denies chest pain. However, she continues to have orthopnea. She was unable to lie flat for greater than a minute today. OBJECTIVE VITAL SIGNS: Temperature 97.9 degrees, pulse 86, respiratory rate 20, blood pressure 150/66. Oxygen saturation is 96% on 2 liters nasal cannula. GENERAL: Obese woman in no acute distress, awake and alert. LUNGS: Bibasilar crackles, otherwise clear to auscultation. CARDIOVASCULAR: Normal rate, regular rhythm. No murmur. Normal S1 and S2. ABDOMEN: Soft, nontender. EXTREMITIES: Trace edema of bilateral lower extremities. CARDIAC MEDICATIONS: Furosemide 80 mg IV t.i.d. LABS: None today. IMPRESSION 1. Pzzvp-mu-qzrudyi diastolic heart failure. 2. Chronic kidney disease. 3. Suspected pulmonary arterial hypertension on CT. RECOMMENDATIONS: Diuretics were increased. Continue to monitor electrolytes and creatinine closely. Plan for right heart catheterization once the patient is able to lie flat, possibly tomorrow if she is able to lie flat longer. Due to renal function, we will have the patient follow up as an outpatient for a nuclear stress test. Defer coronary angiography unless the patient develops concerning symptoms. Continue current cardiac medications otherwise. Thank you for this consult. We will continue to follow. Job#: [id number] BARNEY
[2017-09-27 12:00] VITALS: BP 143/69
[2017-09-27] MEDS: CEFTRIAXONE SOD 1 GM VIAL IV SCH (12:30)
[2017-09-27] MEDS: AZITHROMYCIN 500MG/NS 250 ML 250 ML IV SCH (14:46)
[2017-09-27 16:00] VITALS: BP 151/70
[2017-09-27 20:00] VITALS: BP 135/60
[2017-09-27] MEDS: INSULIN GLARGINE 100 UNITS/1 ML 3ML PEN SQ SCH (21:10)
[2017-09-28] VITALS: BP 149/67
[2017-09-28] MEDS: ALBUTEROL SULF 0.083% NEB SOLN 3 ML NEB NEB SCH ×6 (00:30→20:00)
[2017-09-28] MEDS: IPRATROPIUM BROMIDE 0.02% 2.5 ML NEB NEB SCH ×4 (00:30→20:00)
[2017-09-28 04:00] VITALS: BP 126/57
[2017-09-28 06:39] LABS: ANION GAP 16.6 mmol/L (8-16); CALCIUM 9.4 mg/dL (8.4-10.2); CREATININE, SERUM 1.15 mg/dL (0.57-1.11); POTASSIUM 3.6 mmol/L (3.5-5.1)
[2017-09-28 07:36] VITALS: BP 149/67
[2017-09-28] MEDS: FUROSEMIDE INJ 10 MG/ML 4 ML VIAL IV SCH (07:40)
[2017-09-28] MEDS: INSULIN REGULAR, HUMAN 100 UNIT/1 ML 3ML VIAL SQ SCH ×4 (08:00→21:00)
[2017-09-28] MEDS: ROPINIROLE HCL 2 MG TAB PO SCH ×2 (09:00→16:49)
[2017-09-28 12:13] VITALS: BP 138/59
--- NOTE | 2017-09-28 12:21 | Progress Note ---
DATE: September 28, 2017 CARDIOLOGY PROGRESS NOTE SUBJECTIVE: Patient denies chest pain or shortness of breath. She is able to lie flat today. OBJECTIVE VITAL SIGNS: Temperature 96 degrees, pulse 78, respiratory rate 20, blood pressure 149/67. Oxygen saturation is 99% on 2 liters nasal cannula. GENERAL: Awake, alert, no acute distress. LUNGS: Clear to auscultation bilaterally. No wheezes or crackles. CARDIOVASCULAR: Normal rate, regular rhythm. No murmur. Normal S1 and S2. ABDOMEN: Soft, nontender. EXTREMITIES: Trace edema of bilateral lower extremities. CARDIAC MEDICATIONS: Furosemide 80 mg IV t.i.d. LABS: Sodium 137, potassium 3.6, chloride 92, CO2 32, BUN 29, creatinine 1.15. IMPRESSION 1. Riemd-po-bnzvlwo diastolic heart failure. 2. Chronic kidney disease. 3. Suspected pulmonary arterial hypertension on CT. RECOMMENDATIONS: Continue diuretics. The patient is now able to lie flat. We will proceed with right heart catheterization today. Due to renal function, we will have the patient follow up as an outpatient for a nuclear stress test for ischemic evaluation and defer coronary angiography unless the patient develops concerning symptoms. Continue current cardiac medications otherwise. Thank you for this consult. We will continue to follow. Job#: [id number]
[2017-09-28] MEDS: CEFTRIAXONE SOD 1 GM VIAL IV SCH (12:26)
[2017-09-28] MEDS ORDERED: SODIUM CHLORIDE 0.9% 1000ML 1,000 ML ONE (12:52)
[2017-09-28] MEDS ORDERED: LIDOCAINE HCL 2% LOCAL 20 ML VIAL ONE (12:52)
[2017-09-28] MEDS ORDERED: SODIUM CHLORIDE 0.9% 500ML 500 ML ONE (12:52)
[2017-09-28] MEDS ORDERED: HEPARIN SOD/SOD CHLORIDE 1,000 ML ONE (13:04)
[2017-09-28] MEDS ORDERED: FENTANYL CITRATE/PF 100MCG/2 ML INJ ONE (13:08)
[2017-09-28] MEDS ORDERED: MIDAZOLAM HCL 2 MG/2 ML VIAL ONE ×2 (13:08→13:20)
[2017-09-28 13:48] LABS: ABG PCO2 46 mmHg (41-51); ABG PH 7.46 (7.31-7.41); ABG PO2 30 mmHg (80-105)
[2017-09-28 13:49] LABS: ABG HCO3 33 mmol/L (23-28)
[2017-09-28] MEDS: AZITHROMYCIN 500MG/NS 250 ML 250 ML IV SCH (14:29)
[2017-09-28 15:32] VITALS: BP 153/72
[2017-09-28] MEDS ORDERED: SIMVASTATIN40 MG PO (15:37)
[2017-09-28] MEDS ORDERED: PAROXETINE HCL20 MG PO (15:37)
[2017-09-28] MEDS ORDERED: ULTRAM 50MG50 MG PO (15:37)
[2017-09-28] MEDS ORDERED: FUROSEMIDE40 MG PO (15:37)
[2017-09-28] MEDS ORDERED: OMEPRAZOLE40 MG PO (15:37)
[2017-09-28] MEDS ORDERED: ASPIR 8181 MG PO (15:37)
[2017-09-28] MEDS ORDERED: FENOFIBRATE145 MG PO (15:37)
[2017-09-28] MEDS ORDERED: METOPROLOL TART50 MG PO (15:37)
[2017-09-28] MEDS ORDERED: GABAPENTIN300 MG PO (15:37)
[2017-09-28] MEDS ORDERED: GLIMEPIRIDE2 MG PO (15:37)
--- NOTE | 2017-09-28 15:51 | Operative Report ---
DATE OF PROCEDURE: September 28, 2017 PROCEDURE: Right heart catheterization. INDICATIONS: Congestive heart failure and suspected pulmonary arterial hypertension. SEDATION: Versed 3 mg and Fentanyl 100 mcg. PROCEDURE IN DETAIL: The patient was brought to the cardiac catheterization laboratory in fasting state after written informed consent was obtained. The right neck was prepped and draped in the usual sterile fashion. 1% lidocaine was used to infiltrate the skin over the right internal jugular vein. Systemic sedation was given as above. The right internal jugular vein was accessed using ultrasound guidance via modified Seldinger technique. A 6-Bulgarian sheath was inserted into the right internal jugular vein. A pulmonary arterial catheter was then inserted through the sheath and advanced into the pulmonary capillary wedge position. Hemodynamic measurements were obtained. The PA catheter was retracted and PA saturation was obtained. Thermodilution measurements were performed. The PA catheter was removed, followed by the venous sheath. Manual pressure was held until adequate hemostasis was achieved. The patient tolerated the procedure well without any immediate complications. FINDINGS: 1. RA pressure 9 mmHg. 2. Right ventricular pressure is 32/5 mmHg with RV end-diastolic pressure of 10 mmHg. 3. Pulmonary artery pressure is 36/18 mmHg with mean of 25 mmHg 4. Pulmonary capillary wedge pressure was 10 mmHg. 5. Cardiac output by Antonieta was 2.67. 6. Cardiac index by Antonieta was 1.22. 7. Pulmonary arterial saturation was 30% with hemoglobin of 10.9, heart rate 83 bpm, and an arterial oxygen saturation of 85% on room air. IMPRESSION: 1. Normal left-sided filling pressures. 2. Chronic diastolic heart failure. 3. Mild pulmonary arterial hypertension. RECOMMENDATIONS: Medical management. Further evaluation of pulmonary arterial hypertension. Job#: [id number] PANCHO
[2017-09-28 20:14] VITALS: BP 131/73
[2017-09-28] MEDS: INSULIN GLARGINE 100 UNITS/1 ML 3ML PEN SQ SCH (21:00)
[2017-09-29] VITALS: BP 131/73
[2017-09-29] MEDS: HYDROCODONE/APAP 5MG-325MG TAB PO PRN (00:54)
[2017-09-29] MEDS: IPRATROPIUM BROMIDE 0.02% 2.5 ML NEB NEB SCH ×3 (01:00→11:00)
[2017-09-29] MEDS: ALBUTEROL SULF 0.083% NEB SOLN 3 ML NEB NEB SCH ×4 (01:00→10:59)
[2017-09-29 01:07] VITALS: BP 119/60
[2017-09-29 05:31] VITALS: BP 116/55
[2017-09-29] MEDS: INSULIN REGULAR, HUMAN 100 UNIT/1 ML 3ML VIAL SQ SCH ×2 (07:30→11:30)
[2017-09-29 07:46] VITALS: BP 159/69
[2017-09-29 08:00] VITALS: BP 159/69
[2017-09-29 08:35] LABS: ANION GAP 18.7 mmol/L (8-16); CALCIUM 9.4 mg/dL (8.4-10.2); POTASSIUM 3.7 mmol/L (3.5-5.1)
[2017-09-29] MEDS ORDERED: FUROSEMIDE 40 MG TAB PO SCH (09:00)
--- NOTE | 2017-09-29 10:30 | Discharge Summary ---
Ms. Painter is a 62-year-old female with history of diabetes, hypertension, hyperlipidemia, depression, diastolic CHF. She came to the emergency room complaining of lower extremity edema and worsening of shortness of breath with orthopnea. She was started on IV Lasix. She went for a cardiac cath yesterday, which showed some pulmonary hypertension and diastolic heart failure. On physical examination today, she is feeling a little better. Temperature is 96, blood pressure 159/69. The heart has regular rate. The lungs are clear to auscultation. Abdomen is soft. On the blood work, potassium is 3.6. Creatinine 1.15. Glucose is 354. Hemoglobin is 8.36, hematocrit 10.9. ASSESSMENT AND PLAN 1. Yzlmv-ln-ysrdmzp diastolic congestive heart failure. 2. Pulmonary hypertension. 3. Uncontrolled diabetes. 4. Uncontrolled hypertension. The plan at the present time is to adjust home medications and probably discharge her home if it is okay with special education paraeducator today. She needs to follow up with me in 1 week. She is to call me or come back to the emergency room if any recurrent problem. All of this was discussed with the patient. All questions were answered to satisfaction. RUSSELL OLIVO MD Job#: [id number]
[2017-09-29] MEDS: CEFTRIAXONE SOD 1 GM VIAL IV SCH (12:45)
[2017-09-29] MEDS: AZITHROMYCIN 500MG/NS 250 ML 250 ML IV SCH (12:52)
--- NOTE | 2017-09-29 14:18 | Progress Note ---
DATE: September 29, 2017 CARDIOLOGY PROGRESS NOTE SUBJECTIVE: Patient denies chest pain or shortness of breath. OBJECTIVE VITAL SIGNS: Temperature 96 degrees, pulse 78, respiratory rate 18, blood pressure 159/69, oxygen saturation 97% on 1 liter nasal cannula. GENERAL: Awake, alert, in no acute distress. LUNGS: Clear to auscultation bilaterally. No wheezes or crackles. CARDIOVASCULAR: Normal rate, regular rhythm. No murmur. Normal S1 and S2. ABDOMEN: Soft, nontender. EXTREMITIES: No edema. CARDIAC MEDICATIONS: Furosemide 80 mg p.o. daily. LABS: Sodium 138, potassium 3.7, chloride 94, CO2 29, BUN 25, creatinine 1. IMPRESSION 1. Wnsoc-ln-wcfbqxf diastolic heart failure, improved. 2. Mild pulmonary hypertension. 3. Chronic kidney disease. RECOMMENDATIONS: Patient was euvolemic on right heart catheterization. The patient has been transitioned to p.o. Lasix. Discussed sodium and fluid restriction as well as importance of daily weights. Patient was instructed to follow up as an outpatient for a nuclear stress test for further ischemic evaluation due to her chronic kidney disease. We will defer coronary angiogram unless patient develops concerning symptoms. Thank you for this consult. We will continue to follow. Job#: [id number] DANY
[2017-10-11] MEDS ORDERED: HUMULIN R100 UNIT/2 SC (07:51)
== END 2017-09-29 13:30 | disposition home or self-care (01) | DRG 287 ==
LOC: ER 09:52 → EDBEDREQ 13:10 → ERHOLD 14:18 → MED/SURG2 16:51
PROVIDERS: ADMIT Internal Medicine; ATTEND Internal Medicine
PROC: 4A133B3 Monitoring of Arterial Pressure, Pulmonary, Percutaneous Approach (ICD-10-PCS; principal; 2017-09-25)
PROC: 4A023N6 Measurement of Cardiac Sampling and Pressure, Right Heart, Percutaneous Approach (ICD-10-PCS; principal; 2017-09-25)
DX: I11.0 Hypertensive heart disease with heart failure (principal); Z68.41 Body mass index [BMI] 40.0-44.9, adult; I27.20 Pulmonary hypertension, unspecified; E66.01 Morbid (severe) obesity due to excess calories; E11.65 Type 2 diabetes mellitus with hyperglycemia; I50.33 Acute on chronic diastolic (congestive) heart failure; Z79.4 Long term (current) use of insulin; E78.5 Hyperlipidemia, unspecified; Z87.891 Personal history of nicotine dependence
CPT/HCPCS: 36415; 71045; 71250; 77002; 80048; 80053; 81001; 82550; 82553; 82805; 82948; 83880; 84443; 84484; 85025; 85610; 85730; 87040; 87400; 93005; 93451; 93503; 94640; 99285; J0456; J0696; J1940; J2001; J2250; J2930; J7030; J7040; J7050

== ENCOUNTER 2017-10-11 07:38 | Emergency (ER) | payer OTHER ==
[~2017-10-11] VITALS: Ht 160 cm; Wt 108.9 kg
[~2017-10-11 07:38] MED LIST changes: +ASPIR 8181 MG PO; +FENOFIBRATE145 MG PO; +FUROSEMIDE40 MG PO; +GABAPENTIN300 MG PO; +GLIMEPIRIDE2 MG PO; +METOPROLOL TART50 MG PO; +OMEPRAZOLE40 MG PO; +PAROXETINE HCL20 MG PO; +SIMVASTATIN40 MG PO; +ULTRAM 50MG50 MG PO
--- OUTSIDE RECORDS SUMMARY | 2017-10-11 07:41 | XMS REPORT | Continuity of Care Document ---
Author Author [facility] Organization [facility] Address [address] [place] [address] Phone Unavailable Care Team Providers Care Stucco Applicator Name Role Phone RUSSELL OLIVO MD PCP Insurance Providers Guarantor Xochitl Painter Address [address] [place] [address] Email PT DECLINED Payer [employer] Policy Number [id number] Subscriber's Name Xochitl Painter Relationship 18 Self / Same As Patient Group Number [id number] Group Name UNEMPLOYED Effective Date 11 Advance Directives Directive Response Recorded Date/Time Does the patient have an advance directive? No 09/25/17 5:44pm If yes, is advance directive on file with [facility]? No 09/25/17 5:44pm If not on file with [facility] will patient provide a copy? No 09/25/17 5:44pm Do you have a Directive to Physician? No 03/05/18 12:30pm Do you have a Medical Power of Senior Back End Java Developer? No 09/25/17 12:30pm Do you have an out of hospital Do Not Resuscitate Order? No 09/25/17 12:30pm Do you have any special needs we should be aware of? No 09/25/17 12:30pm Do you have a support person here with you today? Yes 09/25/17 12:30pm Did patient receive Notice of Privacy Practices? Yes 09/25/17 12:30pm Did patient receive patient rights and responsibilities? Yes 09/25/17 12:30pm Problems Medical Problem Onset Date Status Diabetes type 2, uncontrolled Unknown Acute Hyperglycemia Unknown Acute Pneumonia Unknown Acute Syncope Unknown Medications Current Home Medications Medication Dose Units Route Directions Days Qty Instructions Start Date Aspirin (Aspir 81) 81 Mg Tablet.dr 81 Mg Oral Daily Fenofibrate Nanocrystallized (Fenofibrate) 145 Mg Tablet 145 Mg Oral Daily Furosemide 40 Mg Tablet 40 Mg Oral Daily 30 Tab Gabapentin 300 Mg Capsule 300 Mg Oral Every 8 Hours 60 Cap Glimepiride 2 Mg Tablet 2 Mg Oral Twice A Day Insulin Aspart (Novolog Mix 70-30 Vial) 100 Units/Ml Ml Insulin Detemir (Levemir) 100 Unit/1 Ml Vial Metoprolol Tartrate 50 Mg Tablet 50 Mg Oral Twice A Day Omeprazole 40 Mg Capsule.dr 40 Mg Oral Daily Paroxetine Hcl 20 Mg Tablet 40 Mg Oral Daily 30 Tab Simvastatin 40 Mg Tablet 40 Mg Oral Today At 9:00PM 30 Tab Tramadol Hcl (Ultram 50MG*) 50 Mg Tab 50 Mg Oral Every 12 Hours Past Home Medications Medication Directions Ordered Status Metformin Hcl (Glucophage) 500 Mg Tablet, Discontinued Metoprolol Succinate (Toprol Xl) 50 Mg Tab.er.24h, 50 Oral Twice A Day for Elevated Blood Pressure Discontinued Social History Social History Problem Response Recorded Date/Time Onset Date Status Hx Psychiatric Problems No 09/25/2017 5:44pm Not Applicable Not Applicable Hx Eating Disorder No 09/25/2017 5:44pm Not Applicable Not Applicable Hx Substance Use Disorder No 09/25/2017 5:44pm Not Applicable Not Applicable Hx Depression No 09/25/2017 5:44pm Not Applicable Not Applicable Hx Alcohol Use No 09/25/2017 5:44pm Not Applicable Not Applicable Hx Substance Use Treatment No 09/25/2017 5:44pm Not Applicable Not Applicable Hx Physical Abuse No 09/25/2017 5:44pm Not Applicable Not Applicable Smoking Status Start Date Stop Date Never Smoker Hospital Discharge Instructions No hospital discharge instruction information available. Plan of Care Discharge Date 09/29/17 1:30pm Disposition HOME, SELF-CARE Instructions/Education Provided Pneumonia - Bacterial Prescriptions See Medication Section Referrals RUSSELL OLIVO MD (Internal Medicine) Order Date: 5-7 Days Entered Date: 09/29/2017 12:49pm Address: [address] [place] [id number] Additional Instructions/Education ADA DIET ACTIVITY TOLERATED Functional Status Query Response Date Recorded Assistive Devices None September 25, 2017 5:35pm Ambulation Ability Independent September 25, 2017 5:35pm Toileting Ability Independent September 27, 2017 5:53pm Allergies, Adverse Reactions, Alerts No known allergies. Immunizations No immunization information available. Vital Signs Acute Vital Signs Vital Response Date/Time Temperature (Fahrenheit) 96.0 degrees F (97.6 - 99.5) 09/29/2017 8:00am Pulse Pulse Rate (adult) 78 bpm (60 - 90) 09/29/2017 11:05am Pulse Pulse Rate (adult) 78 bpm (60 - 90) 09/29/2017 11:05am Respiratory Rate 19 bpm (12 - 24) 09/29/2017 11:05am Blood Pressure 159/69 mm Hg 09/29/2017 8:00am Height 5 ft 3 in 09/25/2017 10:00am Weight 237.56 lb 09/28/2017 12:40am Body Mass Index 42.1 kg/m^2 09/28/2017 12:40am Results Laboratory Results Test Name Result Units Flags Reference Collection Date/Time Result Date/ Time Comments Hemoglobin A1c Percent 7.6 % H 4.0-7.0 08/24/2017 3:15pm 08/24/2017 6: 39pm Magnesium Level 2.0 MG/DL 1.3-2.1 08/24/2017 6:50am 08/24/2017 7:32am Triglycerides Level 216 MG/DL H 0-149 08/25/2017 [...] H 3.0-3.6 08/25/2017 6:20am 08/25/2017 7: 23am White Blood Count 8.36 x10e3/uL # 4.8-10.8 09/26/2017 5:52am 09/26/2017 7 :00am Red Blood Count 4.13 x10e6/uL 3.6-5.1 09/26/2017 5:52am 09/26/2017 7: 00am Hemoglobin 10.9 g/dL L 12.0-16.0 09/26/2017 5:52am 09/26/2017 7:00am Hematocrit 35.0 % 34.2-44.1 09/26/2017 5:52am 09/26/2017 7:00am Mean Corpuscular Volume 84.7 fL 81-99 09/26/2017 5:52am 09/26/2017 7: 00am Mean Corpuscular Hemoglobin 26.4 pg L 28-32 09/26/2017 5:52am 2017 7:00am Mean Corpuscular Hemoglobin Concent 31.1 g/dL 31-35 09/26/2017 5:52am 09/26/2017 7:00am Red Cell Distribution Width 15.1 % H 11.7-14.4 09/26/2017 5:52am 2017 7:00am Platelet Count 223 x10e3/uL 140-360 09/26/2017 5:52am 09/26/2017 7: 00am Neutrophils (%) (Auto) 80.9 % H 38.7-80.0 09/26/2017 5:52am 09/26/2017 7 :00am Lymphocytes (%) (Auto) 12.3 % L 18.0-39.1 09/26/2017 5:52am 09/26/2017 7 :00am Monocytes (%) (Auto) 5.1 % 4.4-11.3 09/26/2017 5:52am 09/26/2017 7: 00am Eosinophils (%) (Auto) 0.0 % 0.0-6.0 09/26/2017 5:52am 09/26/2017 7: 00am Basophils (%) (Auto) 0.4 % 0.0-1.0 09/26/2017 5:52am 09/26/2017 7:00am IM GRANULOCYTES % 1.3 % H 0.0-1.0 09/26/2017 5:52am 09/26/2017 7:00am Neutrophils # (Auto) 6.8 2.1-6.9 09/26/2017 5:52am 09/26/2017 7:00am Lymphocytes # (Auto) 1.0 1.0-3.2 09/26/2017 5:52am 09/26/2017 7:00am Monocytes # (Auto) 0.4 0.2-0.8 09/26/2017 5:52am 09/26/2017 7:00am Eosinophils # (Auto) 0.0 0.0-0.4 09/26/2017 5:52am 09/26/2017 7:00am Basophils # (Auto) 0.0 0.0-0.1 09/26/2017 5:52am 09/26/2017 7:00am Absolute Immature Granulocyte (auto 0.11 x10e3/uL H 0-0.1 09/26/2017 5: 52am 09/26/2017 7:00am Prothrombin Time 13.2 seconds 11.9-14.5 09/25/2017 10:46am 09/25/2017 11:58am Prothromb Time International Ratio 1.08 09/25/2017 10:46am 2017 11:58am Oral Anticoagulant Therapy INR Values: 1. Low Intensity Therapy 1.5 - 2.0 2. Moderate Intensity Therapy 2.0 - 3.0 3. High Intensity Therapy(1) 2.5 - 3.5 4. High Intensity Therapy(2) 3.0 - 4.0 5. Panic Value INR > 5.0 Activated Partial Thromboplast Time 23.7 seconds L 23.8-35.5 09/25/2017 10:46am 09/25/2017 11:58am Urine Color COLORLESS YELLOW 09/25/2017 10:46am 09/25/2017 11:45am Urine Clarity CLEAR CLEAR 09/25/2017 10:46am 09/25/2017 11:45am Urine Specific [place] 1.010 1.010-1.025 09/25/2017 10:46am 2017 11:45am Urine pH 6 5 - 7 09/25/2017 10:46am 09/25/2017 11:45am Urine Leukocyte Esterase NEGATIVE NEGATIVE 09/25/2017 10:46am 2017 11:45am Urine Nitrite NEGATIVE NEGATIVE 09/25/2017 10:46am 09/25/2017 11: 45am Urine Protein NEGATIVE NEGATIVE 09/25/2017 10:46am 09/25/2017 11: 45am Urine Glucose (UA) NEGATIVE NEGATIVE 09/25/2017 10:46am 09/25/2017 11 :45am Urine Ketones NEGATIVE NEGATIVE 09/25/2017 10:46am 09/25/2017 11: 45am Urine Urobilinogen 0.2 mg/dL 0.2 - 1 09/25/2017 10:46am 09/25/2017 11: 45am Urine Bilirubin NEGATIVE NEGATIVE 09/25/2017 10:46am 09/25/2017 11: 45am Urine Blood NEGATIVE NEGATIVE 09/25/2017 10:46am 09/25/2017 11:45am Urine WBC NONE /HPF 0-5 09/25/2017 10:46am 09/25/2017 11:55am Urine RBC NONE /HPF 0-5 09/25/2017 10:46am 09/25/2017 11:55am Urine Bacteria NONE /HPF NONE 09/25/2017 10:46am 09/25/2017 11:55am Urine Epithelial Cells RARE /LPF NONE 09/25/2017 10:46am 09/25/2017 11: 55am Sodium Level 138 mmol/L 136-145 09/29/2017 5:44am 09/29/2017 8:38am Potassium Level 3.7 mmol/L 3.5-5.1 09/29/2017 5:44am 09/29/2017 8:38am Chloride Level 94 mmol/L L 98-107 09/29/2017 5:44am 09/29/2017 8:38am Influenza Virus Types A,B Antigen NEGATIVE NEGATIVE 09/25/2017 10: 16am 09/25/2017 11:57am Carbon Dioxide Level 29 mmol/L 22-29 09/29/2017 5:44am 09/29/2017 8: 38am Anion Gap 18.7 mmol/L H 8-16 09/29/2017 5:44am 09/29/2017 8:38am Blood Urea Nitrogen 25 mg/dL 7-09/29/2017 5:44am 09/29/2017 8:38am Creatinine 1.00 mg/dL 0.57-1.11 09/29/2017 5:44am 09/29/2017 8:38am BUN/Creatinine Ratio 25 6-25 09/29/2017 5:44am 09/29/2017 8:38am Estimat Glomerular Filtration Rate 56 ML/MIN L 60- 09/29/2017 5:44am 03/2018 8:38am Ranges were taken from the National Kidney Disease Education Program and the National Kidney Foundation literature. Reference ranges: 60 or greater: Normal 16-59 (for 3 consecutive months): Chronic kidney disease 15 or less: Kidney failure Glucose Level 290 mg/dL H 74-118 09/29/2017 5:44am 09/29/2017 8:38am Calcium Level 9.4 mg/dL 8.4-10.2 09/29/2017 5:44am 09/29/2017 8:38am Bedside Glucose 113 mg/dL 70-120 09/29/2017 12:20pm 09/29/2017 12:28pm Meter ID: [id number] Total Bilirubin 0.3 mg/dL 0.2-1.2 09/25/2017 10:46am 09/25/2017 11: 25am Aspartate Amino Transf (AST/SGOT) 23 IU/L 5-34 09/25/2017 10:46am 09/25 11:25am Alanine Aminotransferase (ALT/SGPT) 27 IU/L 0-55 09/25/2017 10:46am 11/2017 11:25am Total Protein 6.8 g/dL 6.5-8.1 09/25/2017 10:46am 09/25/2017 11:25am Albumin 3.4 g/dL L 3.5-5.0 09/25/2017 10:46am 09/25/2017 11:25am Globulin 3.4 g/dL 2.3-3.5 09/25/2017 10:46am 09/25/2017 11:25am Albumin/Globulin Ratio 1.0 0.8-2.0 09/25/2017 10:46am 09/25/2017 11: 25am Alkaline Phosphatase 67 IU/L 40-150 09/25/2017 10:46am 09/25/2017 11: 25am B-Type Natriuretic Peptide 77.1 pg/mL 0-100 09/25/2017 10:46am 2017 11:58am Creatine Kinase 67 IU/L 29-168 09/26/2017 5:52am 09/26/2017 7:19am Creatine Kinase MB 1.40 ng/mL 0-5.0 09/26/2017 5:52am 09/26/2017 7: 21am Troponin I < 0.001 ng/mL 0-0.300 09/26/2017 5:52am 09/26/2017 7:21am Thyroid Stimulating Hormone (TSH) 0.515 uIU/mL 0.350-4.940 09/25/2017 10 :46am 09/25/2017 11:50am Arterial Blood pH 7.46 H 7.31-7.41 09/28/2017 1:25pm 09/28/2017 1: 49pm WAS CALLED TO RUN A BLOOD GAS FOR A PT ON ROOM AIR LAYING ON THE CHIEF INFORMATICS OFFICER TABLE Arterial Blood Partial Pressure CO2 46 mmHg 41-51 09/28/2017 1:25pm 02/2018 1:49pm Arterial Blood Partial Pressure O2 30 mmHg *L 80-105 09/28/2017 1:25pm 1:49pm Results called/hand delivered to DR CLINTON LLAMAS at 1328 on 09/28/17 by Mckayla Haas. RB OK. Arterial Blood HCO3 33 mmol/L H 23-28 09/28/2017 1:25pm 09/28/2017 1: 49pm Arterial Blood Base Excess 9.0 mmol/L H -2 - 3 09/28/2017 1:25pm 2017 1:49pm Arterial Blood Oxygen Saturation 60.0 % L 95-98 09/28/2017 1:25pm 2017 1:49pm Microbiology Results Procedure Source Organism/Result Collection Date/Time Result Date/Time Result Status Blood Culture Blood NO GROWTH AFTER 72 HOURS 10:46am 09/28/2017 11:00am Preliminary Procedures Procedure Status Date Provider(s) Computed tomography of brain without radiopaque contrast Active 02/09/17 JACQUES JANE MD Computed tomography of brain without radiopaque contrast Active 08/24/17 FLO TOLBERT MD Computed tomography of cervical spine without contrast Active 08/24/17 FLO TOLBERT MD X-ray of chest, two views Active 08/24/17 FLO TOLBERT MD Computed tomography of chest without contrast Active 09/25/17 RAFAELA ASTUDILLO CABLE DISPATCHER Encounters Encounter Location Arrival/Admit Date Discharge/Depart Date Attending Provider Discharged Inpatient [facility] 09/25/17 2:18pm 09/29/17 1:30pm RUSSELL OLIVO MD Discharged Inpatient (obs) [facility] 08/24/17 1:00pm 10/08 4:20pm RUSSELL OLIVO MD Departed Emergency Room [facility] 04/17/17 11:09pm 04/18 3:16am JACQUES JANE MD Departed Emergency Room [facility] 02/09/17 9:43pm 2:38am JACQUES JANE MD Departed Emergency Room [facility] 12/29/16 7:19pm 1:00am JACQUES JANE MD
[2017-10-11] MEDS ORDERED: HUMULIN R100 UNIT/2 (07:51)
[2017-10-11] MEDS ORDERED: PROAIR HFA INH8.5 GM (07:56)
[2017-10-11] MEDS ORDERED: HYDROCODONE/APAP 5MG-325MG TAB PO ONE (08:00)
[2017-10-11] MEDS ORDERED: KETOROLAC TROMETHAMINE 10 MG TAB PO ONE (08:00)
--- NOTE | 2017-10-11 08:39 | Diagnostic Imaging Report ---
PROCEDURE:X-RAY RIGHT FOOT, COMPLETE COMPARISON:None. INDICATIONS:POST FALL FINDINGS: No acute, displaced fracture or dislocation. Appropriate alignment between the medial cuneiform and second metatarsal base in keeping with an intact Lisfranc ligament. Joint spaces are well-maintained. Minimal degenerative calcaneal spur. Soft tissue swelling about the midfoot. CONCLUSION: Mid foot soft tissue swelling without underlying acute osseous abnormality. Dictated by: Hector Mathur M.D. on 10/11/2017 at 8:39 Electronically approved by: Hector Mathur M.D. on 10/11/2017 at 8:39
--- NOTE | 2017-10-11 08:40 | Diagnostic Imaging Report ---
PROCEDURE:X-RAY LEFT KNEE, THREE OR MORE VIEWS COMPARISON:None. INDICATIONS:POST FALL FINDINGS: No acute, displaced fracture or dislocation. Mild medial and patellofemoral compartment degenerative changes. No joint effusion. No focal soft tissue abnormalities. CONCLUSION: No acute osseous abnormality. Dictated by: Hector Mathur M.D. on 10/11/2017 at 8:40 Electronically approved by: Hector Mathur M.D. on 10/11/2017 at 8:40
[2017-10-11 10:07] VITALS: BP 122/62
== END 2017-10-11 10:17 | disposition home or self-care (01) ==
LOC: ER 07:38
DX: S80.02XA Contusion of left knee, initial encounter (principal); S90.31XA Contusion of right foot, initial encounter; W06.XXXA Fall from bed, initial encounter; Y93.84 Activity, sleeping; Y92.003 Bedroom of unspecified non-institutional (private) residence as the place of occurrence of the external cause
CPT/HCPCS: 99284

== ENCOUNTER 2017-10-11 23:19 | Emergency (ER) | payer OTHER ==
[~2017-10-11] VITALS: Ht 160 cm; Wt 108.9 kg
[~2017-10-11 23:19] MED LIST changes: +HUMULIN R100 UNIT/2; +PROAIR HFA INH8.5 GM
--- OUTSIDE RECORDS SUMMARY | 2017-10-11 23:22 | XMS REPORT | Continuity of Care Document ---
Author Author [facility] Organization [facility] Address [address] [place] [address] Phone Unavailable Care Team Providers Care Payroll Professional Name Role Phone RUSSELL OLIVO MD PCP Insurance Providers Guarantor Xochitl Painter Address [address] [place] [address] Email PT DECLINED Payer [employer] Policy Number [id number] Subscriber's Name Xochitl Painter Relationship 18 Self / Same As Patient Group Number [id number] Group Name UNEMPLOYED Effective Date 11 Advance Directives Directive Response Recorded Date/Time Does the patient have an advance directive? No 09/25/17 5:44pm If yes, is advance directive on file with [facility]? No 09/25/17 5:44pm If not on file with [facility] will patient provide a copy? No 09/25/17 5:44pm Do you have a Directive to Physician? No 10/11/17 8:11am Do you have a Medical Power of Plugger Man? No 10/11/17 8:11am Do you have an out of hospital Do Not Resuscitate Order? No 10/11/17 8:11am Do you have any special needs we should be aware of? No 10/11/17 8:11am Do you have a support person here with you today? No 10/11/17 8:11am Did patient receive Notice of Privacy Practices? Yes 10/11/17 8:11am Did patient receive patient rights and responsibilities? Yes 10/11/17 8:11am Problems Medical Problem Onset Date Status Diabetes type 2, uncontrolled Unknown Acute Hyperglycemia Unknown Acute Pneumonia Unknown Acute Syncope Unknown Medications Current Home Medications Medication Dose Units Route Directions Days Qty Instructions Start Date Albuterol Sulfate (Proair Hfa Inhaler*) 8.5 Gm Inh 2 Inh Four Times Daily as needed for Shortness Of Breath Aspirin (Aspir 81) 81 Mg Tablet.dr 81 Mg Oral Daily Fenofibrate Nanocrystallized (Fenofibrate) 145 Mg Tablet 145 Mg Oral Daily Furosemide 40 Mg Tablet 60 Mg Oral Daily 30 Tab Gabapentin 300 Mg Capsule 300 Mg Oral Every 8 Hours 60 Cap Glimepiride 2 Mg Tablet 2 Mg Oral Twice A Day Insulin Detemir (Levemir) 100 Unit/1 Ml Vial Insulin Regular, Human (Humulin R) 100 Unit/1 Ml Vial Metoprolol Tartrate 50 [...] Past Home Medications Medication Directions Ordered Status Insulin Aspart (Novolog Mix 70-30 Vial) 100 Units/Ml Ml, Discontinued Metformin Hcl (Glucophage) 500 Mg Tablet, Discontinued [...] Applicable Smoking Status Start Date Stop Date Former smoker Hospital Discharge Instructions No hospital discharge instruction information available. Plan of Care Discharge Date 10/11/17 10:17am Disposition HOME, SELF-CARE Condition at Discharge Stable Instructions/Education Provided Contusion Forms Provided Work/School Excuse Prescriptions See Medication Section Referrals RUSSELL OLIVO MD Address: [address] [place] [address] Additional Instructions/Education DIAGNOSIS: CONTUSION TO RIGHT FOOT AND LEFT KNEE PRESCRIPTIONS: 1. MOBIC 15 MG DAILY TAKE MEDICATIONS PRESCRIBED. FOLLOW UP WITH YOUR PCP IN 4 DAYS. RETURN TO ER FOR WORSENING SYMPTOMS OR ANY OTHER CONCERNS OR PROBLEMS Functional Status No functional status information available. Allergies, Adverse Reactions, Alerts No known allergies. Immunizations No immunization information available. Vital Signs Acute Vital Signs Vital Response Date/Time Temperature (Fahrenheit) 98.0 degrees F (97.6 - 99.5) 10/11/2017 10:07am Pulse Pulse Rate (adult) 56 bpm (60 - 90) 10/11/2017 10:07am Respiratory Rate 16 bpm (12 - 24) 10/11/2017 10:07am Blood Pressure 122/62 mm Hg 10/11/2017 10:07am Height 5 ft 3 in 10/11/2017 7:42am Weight 240 lb 10/11/2017 7:42am Body Mass Index 42.5 kg/m^2 10/11/2017 7:42am Results Laboratory Results Test Name Result Units [...] CLEAR 09/25/2017 10:46am 09/25/2017 11:45am Urine Specific [place] 1.010 1.010-1.025 09/25/2017 10:46am 2017 11:45am Urine [...] 09/29/2017 8:38am Blood Urea Nitrogen 25 mg/dL 7-26 09/29/2017 5:44am 09/29/2017 8:38am Creatinine 1.00 mg/dL 0.57-1.11 [...] 70-120 09/29/2017 12:20pm 09/29/2017 12:28pm Meter ID: [id number] Total Bilirubin 0.3 mg/dL 0.2-1.2 09/25/2017 10:46am [...] PT ON ROOM AIR LAYING ON THE AREA DEVELOPMENT MANAGER TABLE Arterial Blood Partial Pressure CO2 46 mmHg 41-51 09/28/2017 1:25pm 02/2018 1:49pm Arterial Blood Partial Pressure O2 30 mmHg *L 80-105 09/28/2017 1:25pm 1:49pm Results called/hand delivered to DR CLINTON LLAMSA at 1328 on 09/28/17 by Mckayla Haas. [...] Status Blood Culture Blood NO GROWTH AFTER 5 DAYS, FINAL REPORT 09/25/2017 10: 46am 09/30/2017 11:00am Final Procedures Procedure Status Date Provider(s) Computed tomography of brain without radiopaque contrast Active 02/09/17 JACQUES JANE MD Computed tomography of brain without radiopaque contrast Active 08/24/17 FLO TOLBERT MD Computed tomography of cervical spine without contrast Active 08/24/17 FLO TOLBERT MD X-ray of chest, two views Active 08/24/17 FLO TOLBERT MD Computed tomography of chest without contrast Active 09/25/17 RAFAELA ASTUDILLO REHABILITATION THERAPIST Encounters Encounter Location Arrival/Admit Date Discharge/Depart Date Attending Provider Departed Emergency [facility] 10/11/17 7:38am 10:17am JEFFREY MCDUFFIE MD Discharged Inpatient [facility] 09/25/17 2:18pm 09/29/17 1:30pm RUSSELL OLIVO MD Discharged Inpatient (obs) [facility] 08/24/17 1:00pm 10/08 4:20pm RUSSELL OLIVO MD Departed Emergency [facility] 04/17/17 11:09pm 04/18 3:16am JACQUES JANE MD Departed Emergency [facility] 02/09/17 9:43pm 2:38am JACQUES JANE MD Departed Emergency [facility] 12/29/16 7:19pm 1:00am JACQUES JANE MD
[2017-10-12 00:13] LABS: BASOPHILS # (AUTO) 0.1 (0.0-0.1); EOSINOPHILS # (AUTO) 0.2 (0.0-0.4); EOSINOPHILS % 2.7 % (0.0-6.0); HEMATOCRIT 35.7 % (34.2-44.1); HEMOGLOBIN 10.7 g/dL (12.0-16.0); LYMPHOCYTES # (AUTO) 1.5 (1.0-3.2); LYMPHOCYTES % 24.5 % (18.0-39.1); MEAN CORPUSCULAR VOLUME 86.9 fL (81-99); MONOCYTES # (AUTO) 0.3 (0.2-0.8); MONOCYTES % 5.5 % (4.4-11.3); NEUTROPHILS # (AUTO) 4.1 (2.1-6.9); NEUTROPHILS % 65.3 % (38.7-80.0); PLATELET COUNT 186 x10e3/uL (140-360); RED BLOOD COUNT 4.11 x10e6/uL (3.6-5.1); RED CELL DISTRIBUTION WIDTH 15.1 % (11.7-14.4)
[2017-10-12 00:17] LABS: BILIRUBIN,URINE NEGATIVE (NEGATIVE); CLARITY,URINE CLEAR (CLEAR); COLOR,URINE YELLOW (YELLOW); KETONES,URINE NEGATIVE (NEGATIVE); LEUKOCYTE ESTERASE ,URINE NEGATIVE (NEGATIVE); NITRITE,URINE NEGATIVE (NEGATIVE); PROTEIN,URINE DIPSTICK NEGATIVE (NEGATIVE); URINE UROBILINOGEN 0.2 mg/dL (0.2 - 1)
[2017-10-12 00:30] LABS: INR 1.01; PARTIAL THROMBOPLASTIN TIME 17.7 seconds (23.8-35.5); PROTHROMBIN TIME 12.5 seconds (11.9-14.5)
[2017-10-12 00:37] LABS: WBC,URINE (MAN) 0-5 /HPF (0-5)
[2017-10-12 00:38] LABS: BACTERIA,URINE RARE /HPF; EPITHELIAL CELLS,URINE FEW /LPF; RBC,URINE 0-5 /HPF (0-5)
[2017-10-12 00:40] LABS: ALANINE AMINOTRANSFERASE 24 IU/L (0-55); ALBUMIN 3.2 g/dL (3.5-5.0); ALKALINE PHOSPHATASE 69 IU/L (40-150); ANION GAP 15.1 mmol/L (8-16); BLOOD UREA NITROGEN 37 mg/dL (7-26); BUN/CREATININE RATIO 24 (6-25); CALCIUM 8.7 mg/dL (8.4-10.2); CARBON DIOXIDE 21 mmol/L (22-29); CHLORIDE 105 mmol/L (98-107); CREATINE KINASE 86 IU/L (29-168); CREATININE, SERUM 1.54 mg/dL (0.57-1.11); EST GLOMERULAR FILTRATION RATE 34 ML/MIN (60-); GLUCOSE 286 mg/dL (74-118); MAGNESIUM 1.6 MG/DL (1.3-2.1); POTASSIUM 4.1 mmol/L (3.5-5.1); SODIUM 137 mmol/L (136-145)
[2017-10-12 00:54] LABS: B-TYPE NATRIURETIC PEPTIDE2 46.4 pg/mL (0-100)
--- NOTE | 2017-10-12 01:10 | Diagnostic Imaging Report ---
EXAM: CHEST 2 VIEWS, PA and lateral INDICATION: Shortness of breath COMPARISON: AP view of the chest September 25, 2017 FINDINGS: LINES/TUBES: None LUNGS: Stable edema. PLEURA: No effusions or pneumothorax. HEART AND MEDIASTINUM: Stable appearance. BONES AND SOFT TISSUES: No acute findings. IMPRESSION: Stable mild pulmonary edema. Signed by: Dr. Bonnie Davis M.D. on 10/12/2017 1:07 AM
[2017-10-12] MEDS ORDERED: FUROSEMIDE INJ 10 MG/ML 4 ML VIAL IV ONE (02:15)
[2017-10-12 03:39] VITALS: BP 158/74
[2017-10-12] MEDS ORDERED: ALBUTEROL/IPRATROPIUM 3 ML NEB NEB ONE (04:00)
== END 2017-10-12 04:45 | disposition home or self-care (01) ==
LOC: ER 23:19
DX: R06.09 Other forms of dyspnea (principal); I50.1 Left ventricular failure, unspecified
CPT/HCPCS: 36415; 71046; 80053; 81001; 82550; 82553; 83605; 83735; 83880; 84484; 85025; 85610; 85730; 87040; 87086; 93005; 94640; 99284

== ENCOUNTER 2017-10-25 22:28 | Emergency (ER) | payer OTHER ==
[~2017-10-25] VITALS: Ht 160 cm; Wt 108.9 kg
--- OUTSIDE RECORDS SUMMARY | 2017-10-25 22:30 | XMS REPORT | Continuity of Care Document ---
Author Author [facility] Organization [facility] Address [address] [place] [address] Phone Unavailable Care Team Providers Care Steel Buffer Name Role Phone RUSSELL OLIVO MD PCP Insurance Providers Guarantor Xochitl Painter Asaf Address [address] [place] [address] Email PT DECLINED Payer [employer] Policy Number [id number] Subscriber's Name Xochitl Painter Relationship 18 Self / Same As Patient Group Number [id number] Group Name UNEMPLOYED Effective Date 11 Advance Directives Directive Response Recorded Date/Time Does the patient have an advance directive? No 09/25/17 5:44pm If yes, is advance directive on file with [facility]? No 09/25/17 5:44pm If not on file with [facility] will patient provide a copy? No 09/25/17 5:44pm Do you have a Directive to Physician? No 10/11/17 11:17pm Do you have a Medical Power of Database Marketing Specialist? No 10/11/17 11:17pm Do you have an out of hospital Do Not Resuscitate Order? No 10/11/17 11:17pm Do you have any special needs we should be aware of? No 10/11/17 11:17pm Do you have a support person here with you today? No 10/11/17 11:17pm Did patient receive Notice of Privacy Practices? Yes 10/11/17 11:17pm Did patient receive patient rights and responsibilities? Yes 10/11/17 11:17pm Problems Medical Problem Onset Date Status Diabetes [...] No 09/25/2017 5:44pm Not Applicable Not Applicable Hospital Discharge Instructions No hospital discharge instruction information available. Plan of Care Discharge Date 10/12/17 4:45am Disposition HOME, SELF-CARE Condition at Discharge Stable Instructions/Education Provided Dyspnea Forms Provided Work/School Excuse Prescriptions See Medication Section Referrals RUSSELL OLIVO MD Address: [address] [facility] [place] [address] Additional Instructions/Education REST; TAKE MEDICATIONS PRESCRIBED; FOLLOW UP WITH YOUR PCP; Functional Status No functional status information available. Allergies, Adverse Reactions, Alerts No known allergies. Immunizations No immunization information available. Vital Signs Acute Vital Signs Vital Response Date/Time Temperature (Fahrenheit) 98.0 degrees F (97.6 - 99.5) 10/11/2017 10:07am Pulse Pulse Rate (adult) 85 bpm (60 - 90) 10/12/2017 3:39am Respiratory Rate 16 bpm (12 - 24) 10/12/2017 3:39am Blood Pressure 158/74 mm Hg 10/12/2017 3:39am Height 5 ft 3 in 10/11/2017 11:30pm Weight 240 lb 10/11/2017 11:30pm Body Mass Index 42.5 kg/m^2 10/11/2017 11:30pm Results Laboratory Results Test Name Result Units Flags Reference Collection Date/Time Result Date/ Time Comments Hemoglobin A1c Percent 7.6 % H 4.0-7.0 08/24/2017 3:15pm 08/24/2017 6: 39pm Triglycerides Level 216 MG/DL H 0-149 08/25/2017 [...] H 3.0-3.6 08/25/2017 6:20am 08/25/2017 7: 23am Influenza Virus Types A,B Antigen NEGATIVE NEGATIVE 09/25/2017 10: 16am 09/25/2017 11:57am Bedside Glucose 113 mg/dL 70-120 09/29/2017 12:20pm 09/29/2017 12:28pm Meter ID: [id number] Thyroid Stimulating Hormone (TSH) 0.515 uIU/mL 0.350-4.940 09/25/2017 10 :46am 09/25/2017 11:50am Arterial Blood pH 7.46 H 7.31-7.41 09/28/2017 1:25pm 09/28/2017 1: 49pm WAS CALLED TO RUN A BLOOD GAS FOR A PT ON ROOM AIR LAYING ON THE SITE SPECIALIST TABLE Arterial Blood Partial Pressure CO2 46 [...] % L 95-98 09/28/2017 1:25pm 2017 1:49pm White Blood Count 6.20 x10e3/uL 4.8-10.8 10/11/2017 11:50pm 10/12/2017 12:19am Red Blood Count 4.11 x10e6/uL 3.6-5.1 10/11/2017 11:50pm 10/12/2017 12: 19am Hemoglobin 10.7 g/dL L 12.0-16.0 10/11/2017 11:50pm 10/12/2017 12:19am Hematocrit 35.7 % 34.2-44.1 10/11/2017 11:50pm 10/12/2017 12:19am Mean Corpuscular Volume 86.9 fL 81-99 10/11/2017 11:50pm 10/12/2017 12: 19am Mean Corpuscular Hemoglobin 26.0 pg L 28-32 10/11/2017 11:50pm 2017 12:19am Mean Corpuscular Hemoglobin Concent 30.0 g/dL L 31-35 10/11/2017 11:50pm 10/12/2017 12:19am Red Cell Distribution Width 15.1 % H 11.7-14.4 10/11/2017 11:50pm 2017 12:19am Platelet Count 186 x10e3/uL 140-360 10/11/2017 11:50pm 10/12/2017 12: 19am Neutrophils (%) (Auto) 65.3 % 38.7-80.0 10/11/2017 11:50pm 10/12/2017 12:19am Lymphocytes (%) (Auto) 24.5 % 18.0-39.1 10/11/2017 11:50pm 10/12/2017 12:19am Monocytes (%) (Auto) 5.5 % 4.4-11.3 10/11/2017 11:50pm 10/12/2017 12: 19am Eosinophils (%) (Auto) 2.7 % 0.0-6.0 10/11/2017 11:50pm 10/12/2017 12: 19am Basophils (%) (Auto) 1.0 % 0.0-1.0 10/11/2017 11:50pm 10/12/2017 12: 19am IM GRANULOCYTES % 1.0 % 0.0-1.0 10/11/2017 11:50pm 10/12/2017 12:19am Neutrophils # (Auto) 4.1 2.1-6.9 10/11/2017 11:50pm 10/12/2017 12: 19am Lymphocytes # (Auto) 1.5 1.0-3.2 10/11/2017 11:50pm 10/12/2017 12: 19am Monocytes # (Auto) 0.3 0.2-0.8 10/11/2017 11:50pm 10/12/2017 12:19am Eosinophils # (Auto) 0.2 0.0-0.4 10/11/2017 11:50pm 10/12/2017 12: 19am Basophils # (Auto) 0.1 0.0-0.1 10/11/2017 11:50pm 10/12/2017 12:19am Absolute Immature Granulocyte (auto 0.06 x10e3/uL 0-0.1 10/11/2017 11: 50pm 10/12/2017 12:19am Prothrombin Time 12.5 seconds 11.9-14.5 10/11/2017 11:50pm 10/12/2017 12:31am Prothromb Time International Ratio 1.01 10/11/2017 11:50pm 2017 12:31am Oral Anticoagulant Therapy INR Values: 1. Low Intensity Therapy 1.5 - 2.0 2. Moderate Intensity Therapy 2.0 - 3.0 3. High Intensity Therapy(1) 2.5 - 3.5 4. High Intensity Therapy(2) 3.0 - 4.0 5. Panic Value INR > 5.0 Activated Partial Thromboplast Time 17.7 seconds L 23.8-35.5 10/11/2017 11:50pm 10/12/2017 12:31am Urine Color YELLOW YELLOW 10/11/2017 11:50pm 10/12/2017 12:19am Urine Clarity CLEAR CLEAR 10/11/2017 11:50pm 10/12/2017 12:19am Urine Specific [place] 1.020 1.010-1.025 10/11/2017 11:50pm 2017 12:19am Urine pH 5 5 - 7 10/11/2017 11:50pm 10/12/2017 12:19am Urine Leukocyte Esterase NEGATIVE NEGATIVE 10/11/2017 11:50pm 2017 12:19am Urine Nitrite NEGATIVE NEGATIVE 10/11/2017 11:50pm 10/12/2017 12: 19am Urine Protein NEGATIVE NEGATIVE 10/11/2017 11:50pm 10/12/2017 12: 19am Urine Glucose (UA) 3+ H NEGATIVE 10/11/2017 11:50pm 10/12/2017 12: 19am Urine Ketones NEGATIVE NEGATIVE 10/11/2017 11:50pm 10/12/2017 12: 19am Urine Urobilinogen 0.2 mg/dL 0.2 - 1 10/11/2017 11:50pm 10/12/2017 12: 19am Urine Bilirubin NEGATIVE NEGATIVE 10/11/2017 11:50pm 10/12/2017 12: 19am Urine Blood 1+ H NEGATIVE 10/11/2017 11:50pm 10/12/2017 12:19am Urine WBC 0-5 /HPF 0-5 10/11/2017 11:50pm 10/12/2017 12:38am Urine RBC 0-5 /HPF 0-5 10/11/2017 11:50pm 10/12/2017 12:38am Urine Bacteria RARE /HPF NONE 10/11/2017 11:50pm 10/12/2017 12:38am Urine Epithelial Cells FEW /LPF NONE 10/11/2017 11:50pm 10/12/2017 12: 38am Sodium Level 137 mmol/L 136-145 10/11/2017 11:50pm 10/12/2017 12:58am Potassium Level 4.1 mmol/L 3.5-5.1 10/11/2017 11:50pm 10/12/2017 12: 58am Chloride Level 105 mmol/L 98-107 10/11/2017 11:50pm 10/12/2017 12:58am Carbon Dioxide Level 21 mmol/L L 22-29 10/11/2017 11:50pm 10/12/2017 12: 58am Anion Gap 15.1 mmol/L 8-16 10/11/2017 11:50pm 10/12/2017 12:58am Blood Urea Nitrogen 37 mg/dL H 7-26 10/11/2017 11:50pm 10/12/2017 12: 58am Creatinine 1.54 mg/dL H 0.57-1.11 10/11/2017 11:50pm 10/12/2017 12:58am BUN/Creatinine Ratio 24 6-25 10/11/2017 11:50pm 10/12/2017 12:58am Estimat Glomerular Filtration Rate 34 ML/MIN L 60- 10/11/2017 11:50pm 12:58am Ranges were taken from the National Kidney Disease Education Program and the National Kidney Foundation literature. Reference ranges: 60 or greater: Normal 16-59 (for 3 consecutive months): Chronic kidney disease 15 or less: Kidney failure Glucose Level 286 mg/dL H 74-118 10/11/2017 11:50pm 10/12/2017 12:58am Calcium Level 8.7 mg/dL 8.4-10.2 10/11/2017 11:50pm 10/12/2017 12:58am Lactic Acid Level 14.6 MG/DL 4.5-19.8 10/11/2017 11:50pm 10/12/2017 12: 40am Magnesium Level 1.6 MG/DL 1.3-2.1 10/11/2017 11:50pm 10/12/2017 12: 58am Total Bilirubin 0.3 mg/dL 0.2-1.2 10/11/2017 11:50pm 10/12/2017 12: 58am Aspartate Amino Transf (AST/SGOT) 22 IU/L 5-34 10/11/2017 11:50pm 10/12 12:58am Alanine Aminotransferase (ALT/SGPT) 24 IU/L 0-55 10/11/2017 11:50pm 12:58am Total Protein 6.5 g/dL 6.5-8.1 10/11/2017 11:50pm 10/12/2017 12:58am Albumin 3.2 g/dL L 3.5-5.0 10/11/2017 11:50pm 10/12/2017 12:58am Globulin 3.3 g/dL 2.3-3.5 10/11/2017 11:50pm 10/12/2017 12:58am Albumin/Globulin Ratio 1.0 0.8-2.0 10/11/2017 11:50pm 10/12/2017 12: 58am Alkaline Phosphatase 69 IU/L 40-150 10/11/2017 11:50pm 10/12/2017 12: 58am B-Type Natriuretic Peptide 46.4 pg/mL 0-100 10/11/2017 11:50pm 2017 12:58am Creatine Kinase 86 IU/L 29-168 10/11/2017 11:50pm 10/12/2017 12:58am Creatine Kinase MB 3.00 ng/mL 0-5.0 10/11/2017 11:50pm 10/12/2017 12: 58am Troponin I < 0.001 ng/mL 0-0.300 10/11/2017 11:50pm 10/12/2017 12:58am Microbiology Results Procedure Source Organism/Result Collection Date/Time [...] chest without contrast Active 09/25/17 RAFAELA ASTUDILLO NP X-ray of chest, two views Active 10/11/17 FLO TOLBERT MD Encounters Encounter Location Arrival/Admit Date Discharge/Depart Date Attending Provider Departed Emergency [facility] 10/11/17 11:19pm 10/12 4:45am FLO TOLBERT MD Departed Emergency Room [facility] 10/11/17 7:38am 10:17am JEFFREY MCDUFFIE MD Discharged Inpatient [facility] 09/25/17 2:18pm 09/29/17 1:30pm RUSSELL OLIVO MD Discharged Inpatient (obs) [facility] 08/24/17 1:00pm 10/08 4:20pm RUSSELL OLIVO MD Departed Emergency Room [facility] 04/17/17 11:09pm 04/18 3:16am JACQUES JANE MD Departed Emergency Room [facility] 02/09/17 9:43pm 2:38am JACQUES JANE MD Departed Emergency [facility] 12/29/16 7:19pm 1:00am JACQUES JANE MD
[2017-10-25] MEDS ORDERED: ALBUTEROL SULF 0.083% NEB SOLN 3 ML NEB NEB STA (23:02)
[2017-10-25] MEDS ORDERED: IPRATROPIUM BROMIDE 0.02% 2.5 ML NEB NEB ONE (23:15)
[2017-10-26 00:08] VITALS: BP 146/72
== END 2017-10-26 00:09 | disposition home or self-care (01) ==
LOC: ER 22:28
DX: J44.9 Chronic obstructive pulmonary disease, unspecified (principal)
CPT/HCPCS: 93005; 99282

== ENCOUNTER 2017-10-31 01:50 | Emergency (ER) | payer OTHER ==
[~2017-10-31] VITALS: Ht 160 cm; Wt 108.9 kg
--- OUTSIDE RECORDS SUMMARY | 2017-10-31 01:52 | XMS REPORT | Continuity of Care Document ---
Author Author [facility] Organization [facility] Address [address] [place] [address] Phone Unavailable Care Team Providers Care Elevator Installer Apprentice Name Role Phone RUSSELL OLIVO MD PCP Insurance Providers Guarantor Xochitl Painter Address [address] [place] [address] Email [email or web address] Payer [employer] Policy Number [id number] Subscriber's Name Xochitl Painter Relationship 18 Self / Same As Patient Group Number [id number] Group Name UNEMPLOYED Effective Date 11 Advance Directives Directive Response Recorded Date/Time Does the patient have an advance directive? No 09/25/17 5:44pm If yes, is advance directive on file with [facility]? No 09/25/17 5:44pm If not on file with [facility] will patient provide a copy? No 09/25/17 5:44pm Do you have a Directive to Physician? No 10/25/17 10:26pm Do you have a Medical Power of Die Cast Die Maker? No 10/25/17 10:26pm Do you have an out of hospital Do Not Resuscitate Order? No 10/25/17 10:26pm Do you have any special needs we should be aware of? No 10/25/17 10:26pm Do you have a support person here with you today? Yes 10/25/17 10:26pm Did patient receive Notice of Privacy Practices? Yes 10/25/17 10:26pm Did patient receive patient rights and responsibilities? Yes 10/25/17 10:26pm Problems Medical Problem Onset Date Status Diabetes [...] information available. Plan of Care Discharge Date 10/26/17 12:09am Disposition HOME, SELF-CARE Condition at Discharge Stable Instructions/Education Provided COPD Forms Provided Work/School Excuse Prescriptions See Medication Section Additional Instructions/Education FOLLOW UP WITH YOUR DOCTOR USE MEDS DIRECTED Functional Status No functional status information available. Allergies, Adverse Reactions, Alerts No known allergies. Immunizations No immunization information available. Vital Signs Acute Vital Signs Vital Response Date/Time Temperature (Fahrenheit) 98.0 degrees F (97.6 - 99.5) 10/11/2017 10:07am Pulse Pulse Rate (adult) 88 bpm (60 - 90) 10/26/2017 12:08am Pulse Pulse Rate (adult) 88 bpm (60 - 90) 10/26/2017 12:08am Respiratory Rate 16 bpm (12 - 24) 10/26/2017 12:08am Blood Pressure 146/72 mm Hg 10/26/2017 12:08am Blood Pressure 146/72 mm Hg 10/26/2017 12:08am Height 5 ft 3 in 10/25/2017 10:50pm Weight 240 lb 10/25/2017 10:50pm Body Mass Index 42.5 kg/m^2 10/25/2017 10:50pm Results Laboratory Results Test Name Result Units [...] 70-120 09/29/2017 12:20pm 09/29/2017 12:28pm Meter ID: [id number] Thyroid Stimulating Hormone (TSH) 0.515 uIU/mL 0.350-4.940 09/25/2017 10 :46am 09/25/2017 11:50am Arterial Blood pH 7.46 H 7.31-7.41 09/28/2017 1:25pm 09/28/2017 1: 49pm WAS CALLED TO RUN A BLOOD GAS FOR A PT ON ROOM AIR LAYING ON THE KNIT TUBING DYER TABLE Arterial Blood Partial Pressure CO2 46 [...] CLEAR 10/11/2017 11:50pm 10/12/2017 12:19am Urine Specific [place] 1.020 1.010-1.025 10/11/2017 11:50pm 2017 12:19am Urine [...] NO GROWTH AFTER 5 DAYS, FINAL REPORT 10/11/2017 11: 50pm 10/17/2017 12:04am Final Procedures Procedure Status Date Provider(s) Computed [...] Emergency Room [facility] 10/25/17 10:28pm 10/26 12:09am FLO TOLBERT MD Departed Emergency Room [facility] 10/11/17 11:19pm 10/12 4:45am FLO TOLBERT MD Departed Emergency [facility] 10/11/17 7:38am 10:17am JEFFREY MCDUFFIE MD Discharged Inpatient [facility] 09/25/17 2:18pm 09/29/17 1:30pm RUSSELL OLIVO MD Discharged Inpatient (obs) [facility] 08/24/17 1:00pm 10/08 4:20pm RUSSELL OLIVO MD Departed Emergency [facility] 04/17/17 11:09pm 04/18 3:16am JACQUES JANE MD Departed Emergency [facility] 02/09/17 9:43pm 2:38am JACQUES JANE MD Departed Emergency [facility] 12/29/16 7:19pm 1:00am JACQUES JANE MD
--- NOTE | 2017-10-31 02:50 | Diagnostic Imaging Report ---
EXAM: PELVIS AP 1-2 VIEWS INDICATION: Fell out of bed COMPARISON: None FINDINGS: BONES: No evidence of a pelvic fracture. The right femoral neck is not seen in profile. JOINTS: No malalignment. SOFT TISSUES: Normal IMPRESSION: No evidence of a pelvic fracture. Incomplete evaluation of the right femoral neck. If the patient has right hip pain, dedicated images of the right hip are recommended. Signed by: Dr. Bonnie Davis M.D. on 10/31/2017 2:46 AM
--- NOTE | 2017-10-31 02:51 | Diagnostic Imaging Report ---
EXAM: KNEE LEFT THREE VIEWS, AP, lateral and oblique INDICATION: Fell out of bed, pain in left leg COMPARISON: None FINDINGS: BONES: No acute fractures. JOINTS: No malalignment. SOFT TISSUES: Normal IMPRESSION: No evidence of a left knee fracture. Signed by: Dr. Bonnie Davis M.D. on 10/31/2017 2:47 AM
== END 2017-10-31 03:18 | disposition home or self-care (01) ==
LOC: ER 01:50
DX: S80.02XA Contusion of left knee, initial encounter (principal); W06.XXXA Fall from bed, initial encounter; Y92.003 Bedroom of unspecified non-institutional (private) residence as the place of occurrence of the external cause; I11.0 Hypertensive heart disease with heart failure; I50.9 Heart failure, unspecified; E11.40 Type 2 diabetes mellitus with diabetic neuropathy, unspecified; G25.81 Restless legs syndrome; Z79.82 Long term (current) use of aspirin; Z79.4 Long term (current) use of insulin
CPT/HCPCS: 72170; 99284

== ENCOUNTER 2017-12-23 21:05 | Observation (INO) | payer OTHER ==
[~2017-12-23] VITALS: Ht 160 cm; Wt 114.5 kg
[~2017-12-23 21:05] MED LIST changes: -HUMULIN R100 UNIT/2; +HUMULIN R100 UNIT/2 SC
--- OUTSIDE RECORDS SUMMARY | 2017-12-23 21:08 | XMS REPORT | Continuity of Care Document ---
Author Author [facility] Organization [facility] Address [address] [place] [address] Phone Unavailable Care Team Providers Care Sr. Strategic Sourcing Manager Name Role Phone RUSSELL OLIVO MD PCP Insurance Providers Guarantor Xochitl Painter Address [address] [place] [address] Email [email or web address] [employer] Policy Number [id number] Subscriber's Name Xochitl Painter Relationship 18 Self / Same As Patient Group Number [id number] Group Name UNEMPLOYED Effective Date 11 Advance Directives Directive Response Recorded Date/Time Does the patient have an advance directive? No 09/25/17 5:44pm If yes, is advance directive on file with [facility]? No 09/25/17 5:44pm If not on file with [facility] will patient provide a copy? No 09/25/17 5:44pm Problems Medical Problem Onset Date Status Diabetes [...] 2 Mg Oral Twice A Day Insulin Regular, Human (Humulin R) 100 Unit/1 [...] Mix 70-30 Vial) 100 Units/Ml Ml, Discontinued Insulin Detemir (Levemir) 100 Unit/1 Ml Vial, Discontinued Metformin Hcl (Glucophage) 500 Mg Tablet, [...] information available. Plan of Care Discharge Date 10/31/17 3:18am Disposition HOME, SELF-CARE Condition at Discharge Stable Instructions/Education Provided Contusion Fall Prevention Forms Provided Work/School Excuse Prescriptions See Medication Section Referrals RUSSELL OLIVO MD Order Date: As needed Address: [address] [place] [id number] Additional Instructions/Education FOLLOW UP WITH PCP NEEDED RETURN TO THE ER NEEDED Functional Status No functional status information available. [...] 10/26/2017 12:08am Height 5 ft 3 in 10/31/2017 1:54am Weight 240 lb 10/31/2017 1:54am Body Mass Index 42.5 kg/m^2 10/31/2017 1:54am Results Laboratory Results Test Name Result Units [...] 70-120 09/29/2017 12:20pm 09/29/2017 12:28pm Meter ID: [id number] Thyroid Stimulating Hormone (TSH) 0.515 uIU/mL 0.350-4.940 09/25/2017 10 :46am 09/25/2017 11:50am Arterial Blood pH 7.46 H 7.31-7.41 09/28/2017 1:25pm 09/28/2017 1: 49pm WAS CALLED TO RUN A BLOOD GAS FOR A PT ON ROOM AIR LAYING ON THE CONTENT STRATEGIST TABLE Arterial Blood Partial Pressure CO2 46 [...] CLEAR 10/11/2017 11:50pm 10/12/2017 12:19am Urine Specific [place] 1.020 1.010-1.025 10/11/2017 11:50pm 2017 12:19am Urine [...] 12:58am Carbon Dioxide Level 21 mmol/L L 22-10/11/2017 11:50pm 10/12/2017 12: 58am Anion Gap 15.1 mmol/L 8-16 10/11/2017 11:50pm 10/12/2017 12:58am Blood Urea Nitrogen 37 mg/dL H 7-10/11/2017 11:50pm 10/12/2017 12: 58am Creatinine 1.54 mg/dL [...] Emergency Room [facility] 10/31/17 1:50am 3:18am JACQUES JANE MD Departed Emergency Room [facility] 10/25/17 10:28pm 10/26 12:09am FLO TOLBERT MD Departed Emergency Room [facility] 10/11/17 11:19pm 10/12 4:45am FLO TOLBERT MD Departed Emergency Room [facility] 10/11/17 7:38am 10:17am JEFFREY MCDUFFIE MD Discharged Inpatient [facility] 09/25/17 2:18pm 09/29/17 1:30pm RUSSELL OLIVO MD Discharged Inpatient (obs) [facility] 08/24/17 1:00pm 10/08 4:20pm RUSSELL OLIVO MD Departed Emergency Room [facility] 04/17/17 11:09pm 04/18 3:16am JACQUES JANE MD Departed Emergency Room [facility] 02/09/17 9:43pm 2:38am JACQUES JANE MD
[2017-12-23 21:50] LABS: BASOPHILS % 0.7 % (0.0-1.0); EOSINOPHILS # (AUTO) 0.2 (0.0-0.4); EOSINOPHILS % 2.8 % (0.0-6.0); HEMATOCRIT 34.2 % (34.2-44.1); HEMOGLOBIN 10.1 g/dL (12.0-16.0); LYMPHOCYTES # (AUTO) 1.4 (1.0-3.2); LYMPHOCYTES % 24.3 % (18.0-39.1); MEAN CORPUSCULAR HEMOGLOBIN 24.8 pg (28-32); MEAN CORPUSCULAR HGB CONC 29.5 g/dL (31-35); MONOCYTES # (AUTO) 0.3 (0.2-0.8); MONOCYTES % 5.3 % (4.4-11.3); NEUTROPHILS # (AUTO) 3.7 (2.1-6.9); NEUTROPHILS % 66.2 % (38.7-80.0); PLATELET COUNT 206 x10e3/uL (140-360); RED BLOOD COUNT 4.07 x10e6/uL (3.6-5.1); RED CELL DISTRIBUTION WIDTH 15.3 % (11.7-14.4)
[2017-12-23 21:57] LABS: INR 1.13; PROTHROMBIN TIME 13.6 seconds (11.9-14.5)
[2017-12-23 21:58] LABS: PARTIAL THROMBOPLASTIN TIME 23.8 seconds (23.8-35.5)
[2017-12-23 22:02] LABS: MAGNESIUM 1.8 MG/DL (1.3-2.1)
[2017-12-23 22:03] LABS: CLARITY,URINE CLEAR (CLEAR); COLOR,URINE YELLOW (YELLOW); KETONES,URINE NEGATIVE (NEGATIVE); LEUKOCYTE ESTERASE ,URINE NEGATIVE (NEGATIVE); NITRITE,URINE NEGATIVE (NEGATIVE); PROTEIN,URINE DIPSTICK NEGATIVE (NEGATIVE); URINE UROBILINOGEN 0.2 mg/dL (0.2 - 1)
[2017-12-23 22:04] LABS: BILIRUBIN,URINE NEGATIVE (NEGATIVE)
[2017-12-23 22:06] LABS: ALANINE AMINOTRANSFERASE 56 IU/L (0-55); ALBUMIN 3.4 g/dL (3.5-5.0); ALKALINE PHOSPHATASE 78 IU/L (40-150); ANION GAP 16.4 mmol/L (8-16); BLOOD UREA NITROGEN 32 mg/dL (7-26); BUN/CREATININE RATIO 21 (6-25); CALCIUM 9.4 mg/dL (8.4-10.2); CARBON DIOXIDE 25 mmol/L (22-29); CHLORIDE 101 mmol/L (98-107); CREATINE KINASE 85 IU/L (29-168); CREATININE, SERUM 1.54 mg/dL (0.57-1.11); EST GLOMERULAR FILTRATION RATE 34 ML/MIN (60-); POTASSIUM 4.4 mmol/L (3.5-5.1); SODIUM 138 mmol/L (136-145)
[2017-12-23 22:08] LABS: GLUCOSE 493 mg/dL (74-118)
[2017-12-23 22:22] LABS: BACTERIA,URINE RARE /HPF; EPITHELIAL CELLS,URINE RARE /LPF; RBC,URINE 0-5 /HPF (0-5); WBC,URINE (MAN) 0-5 /HPF (0-5)
[2017-12-23 22:29] LABS: THYROID STIMULATING HORMONE 0.865 uIU/mL (0.350-4.940)
--- NOTE | 2017-12-23 22:29 | Diagnostic Imaging Report ---
Examination: CT BRAIN WITHOUT CONTRAST History:Dizziness. Comparison studies:Head CT performed August 24, 2017. Technique: Axial images were obtained from the skull base to the vertex. Coronal and sagittal images reconstructed from the axial data. Intravenous contrast: None Findings: Scalp: No abnormalities. Bones: No fractures, blastic or lytic lesions. Brain sulci: Appropriate for age. Ventricles: Normal in size and configuration. No hydrocephalus. Extra-axial space: No abnormalities. Parenchyma: No abnormal densities. No masses, hemorrhage, or acute or chronic cortical based vascular insults.. Sellar/suprasellar region: No abnormalities. Craniocervical junction: Patent foramen magnum. No Chiari one malformation. Incidental findings: None. Impression: No new or acute intracranial abnormalities. No change from prior head CT performed August 24, 2017. Signed by: Dr. Lauren Jose M.D. on 12/23/2017 10:25 PM
[2017-12-23] MEDS ORDERED: SODIUM CHLORIDE 0.9% 500ML 500 ML IV ONE (22:30)
[2017-12-23] MEDS ORDERED: INSULIN REGULAR, HUMAN 100 UNIT/1 ML 3ML VIAL IV STA (22:30)
[2017-12-23] MEDS ORDERED: SODIUM CHLORIDE 0.9% 500ML 500 ML ONE (22:34)
--- NOTE | 2017-12-23 22:46 | Diagnostic Imaging Report ---
CHEST 2 VIEWS, Technique: CHEST 2 VIEWS Comparison: 10/12/2017 Clinical history: Near syncope DISCUSSION: See impression IMPRESSION: 1. Stable mildly enlarged cardiomediastinal silhouette. 2. Diffuse interstitial prominence which may reflect central vascular congestion/edema. 3. No consolidation, pleural effusion or pneumothorax. Signed by: Dr Susan Alfaro MD on 12/23/2017 10:43 PM
[2017-12-23] MEDS ORDERED: ACETAMINOPHEN 1000 MG/100 ML IV STA (23:35)
[2017-12-24] VITALS (9 sets, daily range): BP systolic 120–159; BP diastolic 48–87
[2017-12-24] MEDS ORDERED: DEXTROSE 50% SYRINGE 50 ML IV PRN (00:15)
[2017-12-24] MEDS ORDERED: ROPINIROLE HCL 0.25 MG TAB PO SCH (02:23)
[2017-12-24] MEDS: INSULIN REGULAR, HUMAN 100 UNIT/1 ML 3ML VIAL SQ SCH ×5 (07:30→20:41)
[2017-12-24 08:21] LABS: BASOPHILS # (AUTO) 0.1 (0.0-0.1); BASOPHILS % 1.3 % (0.0-1.0); EOSINOPHILS # (AUTO) 0.2 (0.0-0.4); EOSINOPHILS % 4.8 % (0.0-6.0); HEMOGLOBIN 10.2 g/dL (12.0-16.0); LYMPHOCYTES # (AUTO) 1.1 (1.0-3.2); LYMPHOCYTES % 27.5 % (18.0-39.1); MEAN CORPUSCULAR HEMOGLOBIN 25.1 pg (28-32); MEAN CORPUSCULAR VOLUME 83.7 fL (81-99); MONOCYTES # (AUTO) 0.3 (0.2-0.8); MONOCYTES % 6.6 % (4.4-11.3); NEUTROPHILS # (AUTO) 2.3 (2.1-6.9); PLATELET COUNT 169 x10e3/uL (140-360); RED BLOOD COUNT 4.06 x10e6/uL (3.6-5.1); RED CELL DISTRIBUTION WIDTH 15.2 % (11.7-14.4)
[2017-12-24 08:47] LABS: ALANINE AMINOTRANSFERASE 45 IU/L (0-55); ALBUMIN 3.2 g/dL (3.5-5.0); ALKALINE PHOSPHATASE 71 IU/L (40-150); ANION GAP 11.6 mmol/L (8-16); BLOOD UREA NITROGEN 29 mg/dL (7-26); BUN/CREATININE RATIO 23 (6-25); CALCIUM 9.3 mg/dL (8.4-10.2); CARBON DIOXIDE 26 mmol/L (22-29); CHLORIDE 104 mmol/L (98-107); CHOLESTEROL 168 MD/DL (0-199); CREATINE KINASE 62 IU/L (29-168); CREATININE, SERUM 1.25 mg/dL (0.57-1.11); EST GLOMERULAR FILTRATION RATE 44 ML/MIN (60-); HDL CHOLESTEROL 28 MG/DL (40-60); LDL CHOLESTEROL 96 MG/DL (60-130); POTASSIUM 4.6 mmol/L (3.5-5.1); SODIUM 137 mmol/L (136-145); TRIGLYCERIDES 218 MG/DL (0-149)
[2017-12-24 08:48] LABS: GLUCOSE 438 mg/dL (74-118)
[2017-12-24] MEDS ORDERED: ASPIRIN 81 MG ENTERIC COATED PO SCH (09:00)
[2017-12-24] MEDS ORDERED: VESICARE5 MG PO (10:09)
[2017-12-24] MEDS ORDERED: ROPINIROLE HCL1 MG PO (10:49)
[2017-12-24] MEDS: METOPROLOL TARTRATE 50 MG TAB PO SCH ×2 (11:00→16:43)
[2017-12-24] MEDS ORDERED: TRAMADOL HCL 50 MG TAB PO SCH (11:00)
[2017-12-24] MEDS ORDERED: ALBUTEROL SULFATE HFA 8GM INHALATION AEROSOL INH PRN (11:00)
[2017-12-24] MEDS: PANTOPRAZOLE SOD 40 MG TABEC PO SCH (11:36)
[2017-12-24] MEDS: FUROSEMIDE 40 MG TAB PO SCH (11:36)
[2017-12-24] MEDS: PAROXETINE HCL 20 MG TAB PO SCH (11:36)
[2017-12-24] MEDS: ROPINIROLE HCL 1 MG TAB PO SCH ×3 (11:37→20:45)
[2017-12-24] MEDS ORDERED: SODIUM CHLORIDE 0.9% 1000ML 1,000 ML IV SCH (13:00)
[2017-12-24] MEDS: GABAPENTIN 300 MG CAP PO SCH ×2 (14:00→21:02)
[2017-12-24 16:34] LABS: CREATINE KINASE 60 IU/L (29-168)
[2017-12-24] MEDS: GLIMEPIRIDE 2 MG TAB PO SCH (16:43)
[2017-12-24] MEDS: SIMVASTATIN 40 MG TAB PO SCH (20:45)
[2017-12-24] MEDS ORDERED: TRAMADOL HCL 50 MG TAB PO PRN (23:00)
[2017-12-25] VITALS (7 sets, daily range): BP systolic 100–152; BP diastolic 48–78
--- NOTE | 2017-12-25 01:18 | History and Physical ---
HISTORY OF PRESENT ILLNESS: Patient is a 62-year-old female who came to the hospital complaining of episode of severe dizziness, almost fainted. Came to the emergency room. She was found to have extremely high blood sugar with evidence of renal insufficiency, admitted to the hospital. REVIEW OF SYSTEMS: CARDIOVASCULAR: No chest pain or palpitation. RESPIRATORY: No shortness of breath. No cough. GASTROINTESTINAL: No nausea. No vomiting. No diarrhea. GENITOURINARY: No frequency, no dysuria. ALLERGIES: SHE IS ALLERGIC TO PENICILLIN. SOCIAL HISTORY: She used to smoke a long time ago. She does not smoke anymore. She does not drink alcohol. PAST MEDICAL HISTORY: Positive for diabetes mellitus, hypertension, COPD and restless leg syndrome. PHYSICAL EXAMINATION: HEART: Regular rhythm. Normal S1, S2 sounds. LUNGS: Clear bilaterally. ABDOMEN: Soft. EXTREMITIES: Show no evidence of cyanosis, edema or trauma. CT of the head showed no evidence of any significant abnormality. EKG essentially showed normal sinus rhythm, no evidence of any ST segment elevation or depression. CT of the chest came back negative. LABORATORY DATA: On the blood work we have BMP, sodium 137, potassium 4.6, chloride 104, CO2 26, BUN 29, creatinine 1.25, glucose 438. On the CBC, white blood count 3.93, hemoglobin 10.2, hematocrit 34.0, platelet count 169,000. PT 13.6, PTT 23.8, INR 1.13. AST 23, ALT 45, total bilirubin 0.3, alkaline phosphatase 71. FINAL IMPRESSION: 1. Near syncopal episode. 2. Bxacw-ol-vtskiae renal failure stage 3. 3. Uncontrolled diabetes mellitus type 2 with diabetic nephropathy and diabetic neuropathy. 4. Anemia of chronic disease. 5. Obesity. 6. Hypertension. 7. Chronic obstructive pulmonary disease. 8. Restless leg syndrome. PLAN OF TREATMENT: Continue normal saline at 80 mL an hour. Continue aspirin 81 mg daily. Continue with taking Requip apparently 2 mg 3 times a day, glimepiride 2 mg twice a day, tramadol 50 mg twice a day as needed, fenofibrate 145 mg daily, metoprolol 50 mg twice a day, simvastatin 40 mg daily, furosemide 40 mg daily, Protonix 40 mg daily, Vesicare 5 mg daily, gabapentin 300 mg q.8 h., Paxil 40 mg daily, albuterol q.6 h. I am going to put her on Spiriva 1 inhalation daily because of history of COPD. Continue oxygen. Consult Dr. Jelena Del Castillo for neurology. Continue telemetry. We are going to also get blood pressure and also BMP tomorrow. Job#: [id number] SAM
[2017-12-25] MEDS: GABAPENTIN 300 MG CAP PO SCH ×3 (05:00→21:01)
[2017-12-25] MEDS: PANTOPRAZOLE SOD 40 MG TABEC PO SCH (08:00)
[2017-12-25] MEDS: GLIMEPIRIDE 2 MG TAB PO SCH ×2 (08:00→17:01)
[2017-12-25] MEDS: INSULIN REGULAR, HUMAN 100 UNIT/1 ML 3ML VIAL SQ SCH ×7 (08:00→21:13)
[2017-12-25] MEDS: SOLIFENACIN SUCCINATE 5 MG TAB PO SCH (08:00)
[2017-12-25] MEDS: FENOFIBRATE 145 MG TAB PO SCH (09:00)
[2017-12-25] MEDS: ASPIRIN 81 MG CHEW TAB PO SCH (09:00)
[2017-12-25] MEDS: ROPINIROLE HCL 1 MG TAB PO SCH ×3 (09:00→21:01)
[2017-12-25] MEDS: METOPROLOL TARTRATE 50 MG TAB PO SCH ×2 (09:00→16:57)
[2017-12-25] MEDS: PAROXETINE HCL 20 MG TAB PO SCH (09:00)
[2017-12-25 09:22] LABS: ANION GAP 11.5 mmol/L (8-16); CREATININE, SERUM 1.09 mg/dL (0.57-1.11); POTASSIUM 4.5 mmol/L (3.5-5.1)
--- NOTE | 2017-12-25 09:55 | Progress Note ---
DATE: December 25, 2017 Ms. Painter is a 62-year-old female with a history of diabetes, renal failure, neuropathy, obesity, came to the emergency room complaining of near syncopal episode. She said she came from the store and she felt very dizzy with blurry vision. She felt like she was going to faint. PHYSICAL EXAMINATION GENERAL: Today, she is awake and alert. She is feeling better. VITALS: Temperature is 96, blood pressure 152/78. HEART: Regular rate. LUNGS: Clear to auscultation. ABDOMEN: Soft. BLOOD WORK: Potassium 4.6, creatinine 1.25, glucose 438. White count 3.93, hemoglobin 10.2, hematocrit is 34. Workup with head CT with no acute findings. Chest x-ray with no consolidation, likely enlarged heart. ASSESSMENT AND PLAN 1. Near syncopal episode. 2. Uncontrolled diabetes with diabetic neuropathy. 3. Peripheral neuropathy. 4. Diabetes with chronic kidney disease. 5. Chronic kidney disease, stage 3. 6. Anemia. 7. Obesity. PLAN: At the present time, is to admit the patient to the hospital. Neurology consult was requested. She had several cardiac workups already that were negative. Continue ADA diet, sliding scale with insulin. We are going to increase glimepiride to 4 mg twice a day. Continue furosemide. All of this was discussed with the patient. All questions were answered to satisfaction. Job#: [id number] GOLDIE
--- NOTE | 2017-12-25 11:37 | Diagnostic Imaging Report ---
PROCEDURE:US RETROPERITONEAL ( KIDNEY ). COMPARISON:None. INDICATIONS:CKD TECHNIQUE: Perez scale color Doppler ultrasound kidneys FINDINGS: Right: 10 x 5.3 x 5 cm. Cortical thickness 1.5 cm Left: 11.2 x 5 x 4.6 cm. Cortical thickness 1.5 cm Both kidneys are normal. No stones, cysts or masses. Normal urinary bladder. No conspicuous ureteral jets, but no evidence of obstruction. CONCLUSION: Normal renal ultrasound. Dictated by: Lamonte Munoz M.D. on 12/25/2017 at 11:40 Electronically approved by: Lamonte Munoz M.D. on 12/25/2017 at 11:40
[2017-12-25] MEDS: TIOTROPIUM 18 MCG INH POWDER INH SCH (13:39)
--- NOTE | 2017-12-25 15:01 | Consultation ---
DATE OF CONSULTATION: December 25, 2017 NEUROLOGY CONSULT HISTORY OF PRESENT ILLNESS: Ms. Painter is a 62-year-old right-hand dominant woman with an extensive past medical history who presented to the emergency center at [facility] on the evening of December 23, 2017, with multiple symptoms. On the afternoon of admission, the patient was in her home when she experienced the abrupt onset of dizziness, which is further described as lightheadedness, blurred vision, slurred speech, generalized weakness, and difficulty walking. Ms. Painter does not report loss of consciousness or confusion. She does not report chest pain, tightness, palpitations, or shortness of breath. Ms. Painter has never been experienced similar symptoms previously. Concerned, she contacted a niece and nephew. They drove to the patient's home, and then brought her to the emergency center at [facility] for further evaluation of her symptoms. Upon arrival in the emergency center, the patient was afebrile with a blood pressure of 156/75 mmHg, and a pulse of 73 beats per minute. Documentation of the patient's neurological examination is not available for review at this time. A CT of the brain without contrast was performed in the emergency center. This study did not show evidence of recent large territorial ischemia or hemorrhage. Ms. Painter was admitted to [facility] under observation status for further evaluation and treatment. When questioned about how well controlled her diabetes mellitus is, the patient reports her blood sugars fluctuate widely. She does not know the results of her last hemoglobin A1c. REVIEW OF SYSTEMS: Dry cough, blurred vision, dysarthria, generalized weakness, impairment of gait, dizziness, which is further described as lightheadedness. PAST MEDICAL HISTORY: Hypertension, hyperlipidemia, diabetes mellitus, type 2, (uncontrolled) complicated by diabetic nephropathy and diabetic neuropathy, osteoarthritis, chronic kidney disease, stage 3, gastroesophageal reflux disease, and depression. PAST SURGICAL HISTORY: Left foot surgery in either 1988 or 1989, appendectomy in 1990. PAST HOSPITALIZATIONS: Surgeries/procedures as listed. In the last few months, Ms. Painter has been hospitalized multiple times for cardiac concerns, shortness of breath, etc. FAMILY HISTORY: The patient's paternal and maternal grandparents are . Their medical histories are unknown. The patient's father is from a stroke. He had high blood pressure, diabetes mellitus, and liver disease. The patient's mother is from an unknown cancer. Ms. Painter had 1 sister who is from cardiac disease. The sister had cervical cancer as well. Patient has no children. SOCIAL HISTORY: Ms. Painter is a . She attended school through the 9th grade. 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 Patient does report a prior history of tobacco use. She quit smoking cigarettes approximately 10 years ago. The patient does not report current or prior alcohol or recreational drug use. HOME MEDICATIONS 1. Proair HFA inhaler 2 inhalations 4 times a day as need for shortness of breath. 2. Aspirin 81 mg by mouth daily. 3. Fenofibrate 145 mg by mouth daily. 4. Lasix 60 mg by mouth daily. 5. Gabapentin 300 mg by mouth 3 times daily. 6. Glimepiride 2 mg by mouth twice daily. 7. Humulin-R 20 units subcutaneously twice daily. 8. Metoprolol 50 mg by mouth twice daily. 9. Omeprazole 40 mg by mouth daily. 10. Paroxetine 40 mg by mouth daily. 11. Ropinirole 2 mg by mouth 3 times daily. 12. Zocor 40 mg by mouth at bedtime daily. 13. VESIcare 5 mg by mouth daily. 14. Tramadol 50 mg by mouth every 12 hours. ALLERGIES: PENICILLIN CAUSES ITCHING. NO KNOWN FOOD ALLERGIES. NO KNOWN ALLERGIES TO LATEX. NO KNOWN ALLERGIES TO IODINE OR OTHER CONTRAST MATERIALS. PHYSICAL EXAMINATION VITAL SIGNS: Height 63 inches, weight 253 pounds. BMI 44.9 kg per meter squared. Blood pressure 152/78 mmHg, pulse 60 beats per minute, respiratory rate 20 breaths per minute, Oxygen saturation 99% on 1 L by nasal cannula. GENERAL: The patient is awake and alert, does not appear distressed. Obese. HEENT: Normocephalic and atraumatic. Pupils are equal, round and reactive to light. Moist mucous membranes. NECK: Supple. No appreciable thyromegaly. No appreciable carotid bruits. CARDIOVASCULAR: S1 and S2. Regular rate and rhythm. No murmurs, rubs, or gallops. RESPIRATORY: Clear to auscultation bilaterally. No wheezes, rhonchi or rales. EXTREMITIES: The skin is arm and dry. No clubbing or cyanosis. Trace pretibial pitting edema. The posterior tibial and dorsalis pedis pulses are 1+ and symmetric. SKIN: Dry, slightly scaly skin over the forelegs. NEUROLOGIC: Memory/attention: The patient is awake and alert, oriented to person, place, time, and situation. CRANIAL NERVES: Cranial nerve I not tested. Cranial nerves II-III, IV, and : Pupils are equal and round. React briskly to light (from 4 mm to 2 mm). Extraocular movements intact. No nystagmus. Cranial nerve V: Sensation to light touch and pinprick is intact in the bilateral V1 through V3 distributions. Strength of the temporalis and masseter muscles is within normal limits. Cranial nerve VII: The face is symmetric as are all facial movements. Strength is within normal limits. Cranial nerve VIII: Hearing is intact to finger rub bilaterally. Cranial nerve IX and X: The soft palate elevates equally and symmetrically. Cranial nerve XI: Normal strength of the bilateral sternocleidomastoid and trapezius muscles. Cranial nerve number XII: The tongue protrudes midline and moves symmetrically from side to side. STRENGTH: Bulk is normal. Strength is 5/5 in the bilateral deltoids, biceps, triceps, wrist flexors and extensors, finger flexors and extensors, intrinsic hand muscles, hip flexors, knee flexors and extensors, ankle dorsiflexion and plantar flexion, and intrinsic foot muscles. Tone is normal. DTRs: Deep tendon reflexes are 2+ and symmetric at the triceps, biceps, brachioradialis, and patellas. Deep tendon reflexes are absent and symmetric at the Achilles. Plantar responses are flexor bilaterally. SENSATION: Is intact to light touch and pinprick over both arms and both legs. CEREBELLAR: Gloivo-cbhk-tuuidr and heel-vallecillo movements are intact without dysmetria or other impairment. GAIT: Deferred. SPEECH: Spontaneous speech is normal without appreciable dysarthria or aphasia. Repetition is intact. INVOLUNTARY MOVEMENTS: None. PRONATOR DRIFT: None. LABORATORY DATA: Sodium 137, potassium 4.5, chloride 102, carbon dioxide 28, anion gap 11.5, BUN 21, creatinine 1.09, estimated GFR 51. BUN to creatinine ratio 19. Glucose 458, calcium 9. Creatinine kinase 85, 62 and 60. CK-MB 2.6, 2.1, 2.6. Troponin I less than 0.001, less than 0.001, less than 0.001. TSH 0.865. Total cholesterol 168, triglycerides 218, LDL cholesterol 96, HDL cholesterol 28, B-natriuretic peptide 125. CBC with differential and platelets reveals a white blood cell count of 3.93 with 59% neutrophils, 27.5% lymphocytes, 6.6% monocytes, 4.8% eosinophils, and 1.3% basophils. Hemoglobin and hematocrit are 10.2 and 34 respectively. Platelet count of 169,000. PT 13.6, INR 1.13, PTT 23.8. Urinalysis reveals 3+ glucose. DIAGNOSTIC STUDIES: Chest x-ray on December 23, 2017, stable mildly enlarged cardiomediastinal silhouette. Diffuse interstitial prominence which may reflect central vascular congestion/edema. No consolidation, pleural effusion, or pneumothorax. CT of the brain without contrast on December 23, 2017, on my review, there is no evidence of recent large territorial ischemia, hemorrhage, mass, or mass effect. There is mild diffuse cerebral atrophy, appropriate for age. There are findings compatible with mild chronic small vessel ischemic disease. ASSESSMENT AND PLAN: Ms. Painter is a 62-year-old right-hand dominant woman with a past medical history significant for hypertension, hyperlipidemia, diabetes mellitus, type 2, (uncontrolled), and chronic kidney disease, stage 3, admitted to [facility] on the evening of the December 23, 2017, with dizziness which is further described as lightheadedness, blurred vision, dysarthria, and generalized weakness. At present, the patient's neurological examination is nonfocal. Her laboratory data and diagnostic studies have been reviewed and are documented above. In my opinion, the etiology of the patient's symptoms is not neurological. Ms. Painter expressed concerns regarding a transient ischemic attack/stroke. However, given the generalized nature of her symptoms, her nonfocal neurological examination, and her normal CT of the brain without contrast, it is highly unlikely the patient experienced a transient ischemic attack/stroke on December 23, 2017. The symptoms described by the patient are common in individuals with hyperglycemia. Given her serum glucose of 493 upon admission to the emergency center, this is the probable cause of Ms. Painter's symptoms. Therefore, adjustment of the patient's medications to better control her diabetes mellitus, type 2 is recommended. Thank you for this consultation. There are no further recommendations from the neurology service at this time. Please contact me with any questions or concerns regarding this patient. TIME SPENT: 50 minutes. Job#: [id number] GOLDIE DELEON
[2017-12-25] MEDS: SIMVASTATIN 40 MG TAB PO SCH (21:01)
[2017-12-26] VITALS (7 sets, daily range): BP systolic 97–143; BP diastolic 41–65
[2017-12-26] MEDS: GABAPENTIN 300 MG CAP PO SCH ×3 (05:14→22:22)
[2017-12-26] MEDS: TIOTROPIUM 18 MCG INH POWDER INH SCH (07:20)
[2017-12-26] MEDS: INSULIN REGULAR, HUMAN 100 UNIT/1 ML 3ML VIAL SQ SCH ×7 (08:00→20:51)
[2017-12-26] MEDS: PANTOPRAZOLE SOD 40 MG TABEC PO SCH (08:30)
[2017-12-26] MEDS: GLIMEPIRIDE 2 MG TAB PO SCH ×2 (09:12→16:30)
[2017-12-26] MEDS: ASPIRIN 81 MG CHEW TAB PO SCH (09:12)
[2017-12-26] MEDS: FUROSEMIDE 40 MG TAB PO SCH (09:12)
[2017-12-26] MEDS: SOLIFENACIN SUCCINATE 5 MG TAB PO SCH (09:13)
[2017-12-26] MEDS: FENOFIBRATE 145 MG TAB PO SCH (09:13)
[2017-12-26] MEDS: ROPINIROLE HCL 1 MG TAB PO SCH ×3 (09:13→20:50)
[2017-12-26] MEDS: METOPROLOL TARTRATE 50 MG TAB PO SCH ×2 (09:13→16:30)
[2017-12-26] MEDS: PAROXETINE HCL 20 MG TAB PO SCH (09:13)
--- NOTE | 2017-12-26 09:53 | Progress Note ---
DATE: December 26, 2017 Ms. Painter is a 62-year-old female with a history of diabetes, renal failure, neuropathy, obesity, came to the emergency room with a near syncopal episode. She was seen by neurologist. This patient think this episode is because her sugar is too high. She already had several times cardiac workup that has been negative. PHYSICAL EXAMINATION GENERAL: Today, she is awake and alert. VITALS: Temperature is 98, blood pressure 114/56. HEART: Regular rate. LUNGS: Clear to auscultation. ABDOMEN: Soft. BLOOD WORK: Potassium 4.5, creatinine 1.09, glucose 458. White count 3.93, hemoglobin 10.2, hematocrit 34. ASSESSMENT AND PLAN 1. Near syncopal episode. 2. Uncontrolled diabetes with hyperglycemia. 3. Diabetes with neuropathy. 4. Peripheral neuropathy. 5. Diabetes with chronic kidney disease. 6. Chronic kidney disease, stage 3. 7. Anemia. 8. Obesity. PLAN: At the present time with this patient, she was cleared by neurologist. Had several cardiac workups that were negative. Continue ADA diet. Glimepiride 4 mg twice a day. She is going to be on Humalog-R 25 units q.a.c. and at bedtime. We are starting her on Levemir 20 units in the morning and 40 units at night. Continue to monitor blood sugar. Once blood sugar is more stable and under control, the patient will be discharged home. All of this was discussed with the patient. All questions were answered to satisfaction. Job#: [id number] GOLDIE
[2017-12-26] MEDS: SIMVASTATIN 40 MG TAB PO SCH (20:50)
[2017-12-26] MEDS: INSULIN DETEMIR 100 UNIT/ML PEN SQ SCH (20:51)
[2017-12-27] VITALS (7 sets, daily range): BP systolic 113–151; BP diastolic 52–75
[2017-12-27] MEDS: GABAPENTIN 300 MG CAP PO SCH ×3 (05:31→21:46)
[2017-12-27] MEDS: TIOTROPIUM 18 MCG INH POWDER INH SCH (07:10)
[2017-12-27] MEDS: INSULIN REGULAR, HUMAN 100 UNIT/1 ML 3ML VIAL SQ SCH ×7 (07:30→21:23)
[2017-12-27] MEDS: GLIMEPIRIDE 2 MG TAB PO SCH ×2 (08:29→17:44)
[2017-12-27] MEDS: FUROSEMIDE 40 MG TAB PO SCH (08:29)
[2017-12-27] MEDS: METOPROLOL TARTRATE 50 MG TAB PO SCH ×2 (08:29→17:44)
[2017-12-27] MEDS: ASPIRIN 81 MG CHEW TAB PO SCH (08:29)
[2017-12-27] MEDS: PANTOPRAZOLE SOD 40 MG TABEC PO SCH (08:29)
[2017-12-27] MEDS: PAROXETINE HCL 20 MG TAB PO SCH (08:30)
[2017-12-27] MEDS: ROPINIROLE HCL 1 MG TAB PO SCH ×3 (08:30→21:23)
[2017-12-27] MEDS: FENOFIBRATE 145 MG TAB PO SCH (08:30)
[2017-12-27] MEDS: SOLIFENACIN SUCCINATE 5 MG TAB PO SCH (08:30)
[2017-12-27] MEDS ORDERED: INSULIN DETEMIR 100 UNIT/ML PEN SQ SCH (09:00)
--- NOTE | 2017-12-27 09:47 | Progress Note ---
DATE: December 27, 2017 Ms. Painter is a 62-year-old female with a history of diabetes, renal failure, neuropathy, sleep apnea. She came to the emergency room complaining of a near syncopal episode. She was seen by a neurologist and cleared. She has been already worked up by crucible packer. The blood sugar has still been elevated. We made some changes on her insulin. Today, she is complaining of severe right knee pain, so we are going to get an x-ray and orthopedic consult. PHYSICAL EXAMINATION GENERAL: She is awake and alert. Blood sugar today is a little more than 200, so she is doing better. VITALS: Temperature is 99.1, blood pressure 113/54. HEART: Regular rate. LUNGS: Clear to auscultation. ABDOMEN: Soft. BLOOD WORK: White count 3.93, hemoglobin 10.2, hematocrit 34. Creatinine 1.09. ASSESSMENT AND PLAN 1. Near syncopal episode, probably due to hyperglycemia. 2. Uncontrolled diabetes with hyperglycemia. 3. Diabetes with neuropathy. 4. Peripheral neuropathy. 5. Right knee pain. 6. Diabetes with chronic kidney disease. 7. Chronic kidney disease, stage 3. 8. Anemia. 9. Obesity. The plan at the present time is to continue an ADA diet. Continue regular insulin. We are going to increase the Levemir to 40 a.m. and 40 p.m. to see if we can get better control of her sugar. We are going to get a right knee x-ray. We are going to get orthopedic consult. Continue treatment. If the patient is stable, she probably will be able to discharge home in the morning. All of this was discussed with the patient, and all questions were answered to satisfaction. Job#: [id number]
--- NOTE | 2017-12-27 10:47 | Diagnostic Imaging Report ---
PROCEDURE:KNEE RIGHT THREE VIEWS TECHNIQUE:AP, lateral and oblique views right knee INDICATION:Fall COMPARISON:None. FINDINGS: Right knee and image regional skeleton are intact and in anatomic alignment. Mild degenerative changes, with trace osteophytes in the medial compartment and small osteophytes in the patellofemoral compartments. Small patellar enthesophytes. CONCLUSION: No evidence of acute traumatic injury. Dictated by: Lamonte Munoz M.D. on 12/27/2017 at 10:49 Electronically approved by: Lamonte Munoz M.D. on 12/27/2017 at 10:49
--- NOTE | 2017-12-27 17:29 | Consultation ---
DATE OF CONSULTATION: December 27, 2017 CHIEF COMPLAINT: Right knee pain. HISTORY OF PRESENT ILLNESS: This patient is a 62-year-old female who complains of right knee pain for several weeks. She states that she slipped and fell on her right knee. She states that she has had previous problems with the right knee, but this has increased her pain. She states she has increased pain with weightbearing activities. She states she has not been using any assistive device. The patient recently presented to the ER with a syncopal episode. She was found to have severe hyperglycemia and thus was admitted. We have been consulted for her right knee pain. PAST MEDICAL HISTORY: See H and P. SOCIAL HISTORY: She is a . She denies any ETOH use. She states she used to smoke and quit roughly 10 years ago. PHYSICAL EXAMINATION: In general, this is a morbidly obese female who is in no apparent distress. She was awake, alert and oriented appropriately. Gross inspection of her right knee shows some mild swelling. There are no skin changes or bruises. Range of motion is uncomfortable and from 0 degrees to 120 degrees of flexion. She has medial joint line tenderness to palpation. The knee is grossly stable. Distal neurovascular exam is normal. IMAGING: X-rays of the right knee were obtained and show moderate arthritic changes with marginal osteophytes. ASSESSMENT AND PLAN: This is a 62-year-old female with osteoarthritis of the right knee. The findings and options were discussed with the patient. Conservative measures were discussed. She needs to, first and foremost, work on a healthy diet and weight loss. This would not only benefit her osteoarthritis of the right knee but her uncontrolled diabetes mellitus. After discussion, we elected to inject the right knee. This was done with sterile technique. I injected the knee with a mixture of 1 mL of Depo-Medrol 40 mg and 6 mL of plain Marcaine 1%. The patient tolerated the injection well. We will also order some physical therapy. She is welcome to follow up with me on an elective basis. Dictated by Martin Velez PA-C Job#: [id number]
[2017-12-27] MEDS: SIMVASTATIN 40 MG TAB PO SCH (21:23)
[2017-12-27] MEDS: INSULIN DETEMIR 100 UNIT/ML PEN SQ SCH (21:24)
[2017-12-28] VITALS (7 sets, daily range): BP systolic 118–195; BP diastolic 57–78
[2017-12-28] MEDS: GABAPENTIN 300 MG CAP PO SCH ×2 (05:37→14:04)
[2017-12-28] MEDS: TIOTROPIUM 18 MCG INH POWDER INH SCH (06:00)
[2017-12-28] MEDS: GLIMEPIRIDE 2 MG TAB PO SCH (08:23)
[2017-12-28] MEDS: ASPIRIN 81 MG CHEW TAB PO SCH (08:23)
[2017-12-28] MEDS: PANTOPRAZOLE SOD 40 MG TABEC PO SCH (08:23)
[2017-12-28] MEDS: FUROSEMIDE 40 MG TAB PO SCH (08:24)
[2017-12-28] MEDS: ROPINIROLE HCL 1 MG TAB PO SCH ×2 (08:25→14:04)
[2017-12-28] MEDS: FENOFIBRATE 145 MG TAB PO SCH (08:25)
[2017-12-28] MEDS: PAROXETINE HCL 20 MG TAB PO SCH (08:25)
[2017-12-28] MEDS: SOLIFENACIN SUCCINATE 5 MG TAB PO SCH (08:25)
[2017-12-28] MEDS: METOPROLOL TARTRATE 50 MG TAB PO SCH (08:25)
[2017-12-28] MEDS: INSULIN REGULAR, HUMAN 100 UNIT/1 ML 3ML VIAL SQ SCH ×4 (08:26→11:53)
[2017-12-28] MEDS ORDERED: INSULIN DETEMIR 100 UNIT/ML PEN SQ SCH (09:00)
--- NOTE | 2018-01-01 18:34 | Discharge Summary ---
Ms. Painter is a 62-year-old female with history of diabetes, renal failure, peripheral neuropathy, sleep apnea. Came to the emergency room because she had a near-syncopal episode when she came back from the store. She was found to have elevated blood sugar, it was 450-something when she came to the emergency room. She has been admitted. She has been evaluated by neurology who think that all her symptoms are due to hyperglycemia. Today blood sugar was 248, last night 158 so she is doing better so the plan is to discharge her home today. On physical examination, she is awake and alert. Temperature is 96.7, blood pressure is 148/62. The heart is regular rate. The lungs are clear to auscultation. Abdomen is soft. On the blood work, sugar 246, last night 158, white count 3.93, hemoglobin 10.2. Urine was negative. She had a knee x-ray and a shot in her right knee with steroids yesterday so she is feeling better. DISCHARGE DIAGNOSES 1. Near-syncopal episode due to hyperglycemia. 2. Uncontrolled diabetes with hyperglycemia symptomatic. 3. Diabetes with peripheral neuropathy. 4. Peripheral neuropathy. 5. Right knee pain. 6. Diabetes with chronic kidney disease. 7. Chronic kidney disease stage 3. 8. Anemia. 9. Obesity. 10. Sleep apnea. The plan at present time is to discharge the patient home, have her follow up with me as an outpatient. She has her insulin 500 at home. I instructed her how to use. Continue ADA diet. Continue furosemide 60 mg daily, paroxetine 40 mg daily, glimepiride 4 mg twice a day, gabapentin 300 mg q.8 hours, ropinirole 2 mg t.i.d., tramadol 50 q.12 p.r.n. for pain, fenofibrate 145 mg daily, metoprolol 50 mg twice a day, simvastatin 40 mg daily, aspirin 81 mg daily, Protonix 40 mg daily, Vesicare 5 mg daily. All this was discussed with patient. Her questions were answered to satisfaction. She needs follow up with me in 1 week. Please see home medication reconciliation list. She is to call me or come back to the emergency room if any recurrent problem. RUSSELL OLIVO MD Job#: [id number] DG
== END 2017-12-28 16:18 | disposition home or self-care (01) ==
LOC: ER 21:05 → ERHOLD 12-24 00:08 → IMCU 12-24 00:51 → MED/SURG 12-27 14:51
PROVIDERS: ADMIT Internal Medicine; ATTEND Internal Medicine
DX: E11.65 Type 2 diabetes mellitus with hyperglycemia (principal); R55 Syncope and collapse; R42 Dizziness and giddiness; Z83.3 Family history of diabetes mellitus; Z82.49 Family history of ischemic heart disease and other diseases of the circulatory system; Z88.0 Allergy status to penicillin; E11.22 Type 2 diabetes mellitus with diabetic chronic kidney disease; I12.9 Hypertensive chronic kidney disease with stage 1 through stage 4 chronic kidney disease, or unspecified chronic kidney disease; N18.3 Chronic kidney disease, stage 3 (moderate); N17.9 Acute kidney failure, unspecified; E11.21 Type 2 diabetes mellitus with diabetic nephropathy; E11.42 Type 2 diabetes mellitus with diabetic polyneuropathy; Z87.891 Personal history of nicotine dependence; D63.8 Anemia in other chronic diseases classified elsewhere; J44.9 Chronic obstructive pulmonary disease, unspecified; G25.81 Restless legs syndrome; E78.5 Hyperlipidemia, unspecified; M17.11 Unilateral primary osteoarthritis, right knee; E66.01 Morbid (severe) obesity due to excess calories; Z68.41 Body mass index [BMI] 40.0-44.9, adult; Z79.4 Long term (current) use of insulin
CPT/HCPCS: 20610; 36415 ×6; 70450; 71046; 73562; 76770; 80048; 80053 ×2; 80061; 81001; 82550 ×2; 82553 ×2; 82948 ×6; 83735; 83880; 84443; 84484 ×2; 85025 ×2; 85610; 85730; 87086; 93005; 94640 ×4; 97116 ×3; 97161; 99284; G0378 ×5; G8978; G8979; J7040; S0164 ×5

== ENCOUNTER 2018-01-31 22:01 | Emergency (ER) | payer OTHER ==
[~2018-01-31] VITALS: Ht 160 cm; Wt 114.3 kg
[~2018-01-31 22:01] MED LIST changes: +ROPINIROLE HCL1 MG PO; +VESICARE5 MG PO
[2018-01-31] MEDS ORDERED: INSULIN REGULAR, HUMAN 100 UNIT/1 ML 3ML VIAL IV STA (22:26)
[2018-01-31] MEDS ORDERED: SODIUM CHLORIDE 0.9% 500ML 500 ML IV ONE (22:30)
[2018-01-31 23:19] LABS: BASOPHILS # (AUTO) 0.1 (0.0-0.1); BASOPHILS % 0.9 % (0.0-1.0); EOSINOPHILS # (AUTO) 0.1 (0.0-0.4); EOSINOPHILS % 2.5 % (0.0-6.0); HEMATOCRIT 34.8 % (34.2-44.1); HEMOGLOBIN 10.6 g/dL (12.0-16.0); LYMPHOCYTES # (AUTO) 1.2 (1.0-3.2); LYMPHOCYTES % 21.8 % (18.0-39.1); MEAN CORPUSCULAR HEMOGLOBIN 25.2 pg (28-32); MEAN CORPUSCULAR HGB CONC 30.5 g/dL (31-35); MEAN CORPUSCULAR VOLUME 82.7 fL (81-99); MONOCYTES # (AUTO) 0.3 (0.2-0.8); NEUTROPHILS # (AUTO) 3.8 (2.1-6.9); NEUTROPHILS % 68.7 % (38.7-80.0); PLATELET COUNT 176 x10e3/uL (140-360); RED BLOOD COUNT 4.21 x10e6/uL (3.6-5.1); RED CELL DISTRIBUTION WIDTH 15.5 % (11.7-14.4)
[2018-01-31 23:28] LABS: INR 1.11; PARTIAL THROMBOPLASTIN TIME 23.4 seconds (23.8-35.5); PROTHROMBIN TIME 13.5 seconds (11.9-14.5)
--- NOTE | 2018-01-31 23:30 | Diagnostic Imaging Report ---
CHEST SINGLE (PORTABLE), 01/31/2018 10:26 PM Technique: CHEST SINGLE (PORTABLE) Comparison: 12/23/2017 Clinical history: Dizziness Findings: See Impression Impression Limited portable view with low lung volume and motion artifact. Consider upright PA and lateral. 1. Stable enlarged cardiomediastinal silhouette given differences in technique. 2. Low lung volumes with central vascular congestion and/or edema. 3. Elevated right hemidiaphragm. No significant effusion appreciated. Signed by: Dr Susan Alfaro MD on 01/31/2018 11:27 PM
[2018-01-31 23:34] LABS: BILIRUBIN,URINE NEGATIVE (NEGATIVE); CLARITY,URINE CLEAR (CLEAR); COLOR,URINE YELLOW (YELLOW); KETONES,URINE NEGATIVE (NEGATIVE); LEUKOCYTE ESTERASE ,URINE NEGATIVE (NEGATIVE); NITRITE,URINE NEGATIVE (NEGATIVE); PROTEIN,URINE DIPSTICK NEGATIVE (NEGATIVE); URINE UROBILINOGEN 0.2 mg/dL (0.2 - 1)
[2018-01-31 23:38] LABS: ALANINE AMINOTRANSFERASE 18 IU/L (0-55); ALBUMIN 3.4 g/dL (3.5-5.0); ALKALINE PHOSPHATASE 63 IU/L (40-150); ANION GAP 15.3 mmol/L (8-16); BLOOD UREA NITROGEN 33 mg/dL (7-26); BUN/CREATININE RATIO 23 (6-25); CALCIUM 9.3 mg/dL (8.4-10.2); CARBON DIOXIDE 25 mmol/L (22-29); CHLORIDE 99 mmol/L (98-107); CREATINE KINASE 40 IU/L (29-168); CREATININE, SERUM 1.41 mg/dL (0.57-1.11); EST GLOMERULAR FILTRATION RATE 38 ML/MIN (60-); POTASSIUM 4.3 mmol/L (3.5-5.1); SODIUM 135 mmol/L (136-145)
[2018-01-31 23:39] LABS: GLUCOSE 622 mg/dL (74-118)
[2018-01-31 23:42] LABS: BACTERIA,URINE RARE /HPF; EPITHELIAL CELLS,URINE RARE /LPF; WBC,URINE (MAN) 0-5 /HPF (0-5)
== END 2018-02-01 02:14 | disposition home or self-care (01) ==
LOC: ER 22:01
DX: E11.65 Type 2 diabetes mellitus with hyperglycemia (principal)
CPT/HCPCS: 36415; 71045; 80053; 81001; 82550; 82553; 83735; 83880; 84484; 85025; 85610; 85730; 87086; 93005; 99284; J7040

== ENCOUNTER 2018-02-04 09:12 | Observation (INO) | payer OTHER ==
[~2018-02-04] VITALS: Ht 160 cm; Wt 110.7 kg
[2018-02-04] MEDS ORDERED: SODIUM CHLORIDE 0.9% 500ML 500 ML IV STA (09:16)
[2018-02-04] MEDS ORDERED: ASPIRIN 81 MG CHEW TAB PO ONE (09:30)
[2018-02-04] MEDS ORDERED: FAMOTIDINE 20 MG/2 ML VIAL IV ONE (09:30)
[2018-02-04] MEDS ORDERED: ONDANSETRON HCL INJ 2 MG/ML VIAL IV PRN ×3 (09:30→11:30)
[2018-02-04 10:38] LABS: BASOPHILS # (AUTO) 0.1 (0.0-0.1); EOSINOPHILS # (AUTO) 0.2 (0.0-0.4); EOSINOPHILS % 3.2 % (0.0-6.0); HEMATOCRIT 37.6 % (34.2-44.1); HEMOGLOBIN 11.3 g/dL (12.0-16.0); LYMPHOCYTES # (AUTO) 1.3 (1.0-3.2); MEAN CORPUSCULAR HEMOGLOBIN 25.2 pg (28-32); MEAN CORPUSCULAR HGB CONC 30.1 g/dL (31-35); MEAN CORPUSCULAR VOLUME 83.7 fL (81-99); MONOCYTES # (AUTO) 0.4 (0.2-0.8); MONOCYTES % 5.3 % (4.4-11.3); NEUTROPHILS # (AUTO) 4.9 (2.1-6.9); NEUTROPHILS % 70.5 % (38.7-80.0); PLATELET COUNT 217 x10e3/uL (140-360); RED BLOOD COUNT 4.49 x10e6/uL (3.6-5.1); RED CELL DISTRIBUTION WIDTH 15.7 % (11.7-14.4)
[2018-02-04 10:59] LABS: ALBUMIN 3.3 g/dL (3.5-5.0); ANION GAP 15.7 mmol/L (8-16); CREATININE, SERUM 1.29 mg/dL (0.57-1.11); MAGNESIUM 1.7 MG/DL (1.3-2.1); POTASSIUM 3.7 mmol/L (3.5-5.1)
[2018-02-04 11:06] LABS: CREATINE KINASE MB 1.8 ng/mL (0-5.0)
[2018-02-04 11:13] LABS: CLARITY,URINE CLEAR (CLEAR); COLOR,URINE YELLOW (YELLOW); KETONES,URINE NEGATIVE (NEGATIVE); LEUKOCYTE ESTERASE ,URINE NEGATIVE (NEGATIVE); NITRITE,URINE NEGATIVE (NEGATIVE); PROTEIN,URINE DIPSTICK NEGATIVE (NEGATIVE)
[2018-02-04 11:14] LABS: AMPHETAMINES SCREEN,URINE NEGATIVE (NEGATIVE); PHENCYCLIDINE SCREEN,URINE NEGATIVE (NEGATIVE)
[2018-02-04 11:15] LABS: BENZODIAZEPINES SCREEN,URINE NEGATIVE (NEGATIVE)
[2018-02-04 11:16] LABS: BILIRUBIN,URINE NEGATIVE (NEGATIVE); URINE UROBILINOGEN 0.2 mg/dL (0.2 - 1)
[2018-02-04 11:17] LABS: BACTERIA,URINE FEW /HPF; EPITHELIAL CELLS,URINE MODERATE /LPF; MUCUS,URINE FEW (RARE); WBC,URINE (MAN) 0-5 /HPF (0-5)
[2018-02-04] MEDS ORDERED: DIPHENHYDRAMINE HCL 25 MG CAP PO PRN (11:30)
[2018-02-04] MEDS ORDERED: ACETAMINOPHEN 325 MG TAB PO PRN (11:30)
[2018-02-04] MEDS ORDERED: IBUPROFEN 200 MG TAB PO PRN (11:30)
[2018-02-04] MEDS ORDERED: LACTULOSE SYRUP 20 GM/30 ML UDC PO PRN (11:30)
[2018-02-04] MEDS ORDERED: ENALAPRILAT IV INJ 1.25 MG/ML VIAL IV PRN (11:30)
--- NOTE | 2018-02-04 11:39 | Diagnostic Imaging Report ---
EXAMINATION: CHEST SINGLE (PORTABLE) INDICATION: Dizziness. COMPARISON: Chest x-ray 01/31/2018. FINDINGS: AP view TUBES and LINES: None. LUNGS: Hypoinflated lungs again seen with elevated right hemidiaphragm. Perihilar vascular crowding and atelectasis unchanged. Mild central pulmonary venous congestion. PLEURA: No pleural effusion or pneumothorax. HEART AND MEDIASTINUM: The cardiomediastinal silhouette is unremarkable. BONES AND SOFT TISSUES: No acute osseous lesion. Soft tissues are unremarkable. UPPER ABDOMEN: No free air under the diaphragm. IMPRESSION: Hypoinflated lungs with perihilar vascular crowding and bibasilar atelectasis unchanged. Slight increase in central pulmonary venous congestion. Signed by: Dr. Neil Glez M.D. on 02/04/2018 11:35 AM
[2018-02-04] MEDS ORDERED: IBUPROFEN 400 MG TAB PO PRN (12:00)
[2018-02-04] MEDS ORDERED: DEXTROSE 50% SYRINGE 50 ML IV PRN (13:00)
[2018-02-04 13:09] VITALS: BP 99/74
[2018-02-04 13:22] VITALS: BP 99/74
[2018-02-04 16:05] VITALS: BP 95/53
[2018-02-04] MEDS: FAMOTIDINE 20 MG TAB PO SCH (16:26)
[2018-02-04] MEDS: INSULIN REGULAR, HUMAN 100 UNIT/1 ML 3ML VIAL SQ SCH ×2 (16:26→21:00)
[2018-02-04 17:34] VITALS: BP 132/62
[2018-02-04 18:28] LABS: CREATINE KINASE MB 1.6 ng/mL (0-5.0)
[2018-02-04] MEDS ORDERED: ALBUTEROL SULFATE HFA 8GM INHALATION AEROSOL INH PRN (20:00)
[2018-02-04] MEDS: TRAMADOL HCL 50 MG TAB PO SCH (20:00)
[2018-02-04 20:18] VITALS: BP 107/51
[2018-02-04] MEDS: ROPINIROLE HCL 1 MG TAB PO SCH (21:00)
[2018-02-04] MEDS: SIMVASTATIN 40 MG TAB PO SCH (21:00)
[2018-02-04] MEDS: GABAPENTIN 300 MG CAP PO SCH (21:59)
[2018-02-05] VITALS (7 sets, daily range): BP systolic 98–148; BP diastolic 50–66
[2018-02-05] MEDS: GABAPENTIN 300 MG CAP PO SCH ×3 (06:00→22:00)
[2018-02-05 06:30] LABS: CREATINE KINASE MB 1.4 ng/mL (0-5.0)
[2018-02-05] MEDS: FAMOTIDINE 20 MG TAB PO SCH ×2 (07:30→16:30)
[2018-02-05] MEDS: INSULIN REGULAR, HUMAN 100 UNIT/1 ML 3ML VIAL SQ SCH ×4 (08:00→21:00)
[2018-02-05] MEDS ORDERED: METOPROLOL TARTRATE 50 MG TAB PO SCH (09:00)
[2018-02-05] MEDS: PAROXETINE HCL 20 MG TAB PO SCH (09:12)
[2018-02-05] MEDS: ASPIRIN 81 MG CHEW TAB PO SCH (09:12)
[2018-02-05] MEDS: FUROSEMIDE 40 MG TAB PO SCH (09:12)
[2018-02-05] MEDS: GLIMEPIRIDE 2 MG TAB PO SCH ×2 (09:12→17:00)
[2018-02-05] MEDS: FENOFIBRATE 145 MG TAB PO SCH (09:13)
[2018-02-05] MEDS: SOLIFENACIN SUCCINATE 5 MG TAB PO SCH (09:13)
[2018-02-05] MEDS: ROPINIROLE HCL 1 MG TAB PO SCH ×3 (09:13→21:30)
[2018-02-05] MEDS: PANTOPRAZOLE SOD 40 MG TABEC PO SCH (09:13)
[2018-02-05] MEDS: TRAMADOL HCL 50 MG TAB PO SCH ×2 (09:13→21:30)
[2018-02-05] MEDS ORDERED: ACETAMINOPHEN 325 MG TAB PO PRN (20:30)
[2018-02-05] MEDS ORDERED: LEVOFLOXACIN 750MG/D5W 150ML 150 ML IV SCH (21:00)
[2018-02-05] MEDS: SIMVASTATIN 40 MG TAB PO SCH (21:30)
[2018-02-06] VITALS (7 sets, daily range): BP systolic 129–153; BP diastolic 59–66
[2018-02-06] MEDS: GABAPENTIN 300 MG CAP PO SCH ×3 (05:15→21:26)
[2018-02-06] MEDS: INSULIN REGULAR, HUMAN 100 UNIT/1 ML 3ML VIAL SQ SCH ×4 (07:30→21:16)
[2018-02-06] MEDS: FAMOTIDINE 20 MG TAB PO SCH ×2 (08:08→17:19)
[2018-02-06] MEDS: GLIMEPIRIDE 2 MG TAB PO SCH ×2 (08:31→17:20)
[2018-02-06] MEDS: FUROSEMIDE 40 MG TAB PO SCH (08:31)
[2018-02-06] MEDS: ASPIRIN 81 MG CHEW TAB PO SCH (08:31)
[2018-02-06] MEDS: TRAMADOL HCL 50 MG TAB PO SCH ×2 (08:32→21:25)
[2018-02-06] MEDS: ROPINIROLE HCL 1 MG TAB PO SCH ×3 (08:32→21:25)
[2018-02-06] MEDS: PAROXETINE HCL 20 MG TAB PO SCH (08:32)
[2018-02-06] MEDS: SOLIFENACIN SUCCINATE 5 MG TAB PO SCH (08:32)
[2018-02-06] MEDS: FENOFIBRATE 145 MG TAB PO SCH (08:32)
[2018-02-06] MEDS: PANTOPRAZOLE SOD 40 MG TABEC PO SCH (08:32)
--- NOTE | 2018-02-06 10:29 | Progress Note ---
DATE: February 06, 2018 Ms. Painter is a 62-year-old female with history of diastolic CHF, diabetes, hypertension, hyperlipidemia, and depression. She came to the emergency room because she was having breakfast, and she started feeling like she was going to pass out, so they called 9--1 and they brought her to the emergency room where she was found to be bradycardic, so she was admitted for further workup. PHYSICAL EXAMINATION GENERAL: Today, she is awake and alert. She is feeling a little better, but she is still having some dizziness. VITALS: Temperature is 96.5, blood pressure 136/62. Heart rate is 60 per minute. Respiratory rate is 18. LUNGS: Clear to auscultation. ABDOMEN: Distended and soft. LABS: On the blood work, potassium is 3.7, creatinine 1.29, glucose 155. White count 6.94, hemoglobin 11.3, hematocrit 37.6. Chest x-ray on admission shows hypoinflated lungs with vascular crowding, atelectasis, slight increase in the central pulmonary venous congestion. ASSESSMENT 1. Near syncope. 2. Sinus bradycardia. 3. Diabetes, type 2. 4. Hypertension. 5. Hyperlipidemia. 6. Depression. PLAN: At the present time, we are waiting for cardiology consult. Continue ADA diet and sliding scale with insulin. Continue to monitor heart rate and blood pressure. Home medications were restarted. All of this was discussed with the patient. All questions were answered to satisfaction. Job#: [id number]
[2018-02-06] MEDS: SIMVASTATIN 40 MG TAB PO SCH (21:25)
[2018-02-07] VITALS: BP 146/62
--- NOTE | 2018-02-07 01:09 | Consultation ---
DATE OF CONSULTATION: February 05, 2018 CARDIOLOGY CONSULTATION REASON FOR CONSULTATION: Bradycardia and near syncope. CHIEF COMPLAINT: "I felt terrible and almost passed out." HPI: Patient is a 62-year-old female with history of diastolic heart failure, diabetes, hypertension, hyperlipidemia, depression, and morbid obesity. She was brought to the emergency room because she was out having breakfast with her friend at [employer] this morning and suddenly started feeling like she was dizzy and going to pass out. She also felt nauseous and clammy, had an episode of vomiting. Because she looked unwell, 911 was called and she was brought to the emergency room where she was found to be bradycardic with heart rates in low 50s. She was admitted for further workup. REVIEW OF SYSTEMS: A 10-point review of systems is negative other than mentioned in the HPI. PAST MEDICAL HISTORY 1. Diastolic heart failure. 2. Diabetes. 3. Hypertension. 4. Hyperlipidemia. 5. Depression. FAMILY HISTORY: No family history of early coronary artery disease. Diabetes in mother and father. SOCIAL HISTORY: Patient denies tobacco, alcohol, or drug use. PHYSICAL EXAMINATION VITAL SIGNS: Temperature 97.2, heart rate 60, respiratory rate 18, blood pressure 140/66, and satting 96% on room air. EYES: Conjunctivae clear. EARS, NOSE, MOUTH, AND THROAT: Normal mucosa. No pallor or bleeding. NECK: No jugular venous distention. MUSCULOSKELETAL: Normal muscle tone and strength. No atrophy or abnormal movement. EXTREMITIES: No clubbing or cyanosis. SKIN: No venous stasis changes or ulcers. GENERAL: Well-developed obese white female. CARDIOVASCULAR: PMI could not be palpated due to body habitus. Regular S1 and S2. No murmurs, rubs, or gallops. Normal carotid pulses. Palpable femoral pulses. Palpable pedal pulses. Peripheral edema 1+. RESPIRATORY: No respiratory distress. Lungs are clear to auscultation bilaterally. ABDOMEN: Obese, soft. No masses. NEURO AND PSYCH: Patient is alert and oriented to person, place, and time. Displays a normal affect. MEDICATIONS 1. Simvastatin 40 mg at bedtime. 2. Furosemide 60 mg daily. 3. Aspirin 81 mg daily. LABORATORY DATA: Lab data reviewed. Hemoglobin is 11.3. Blood sugars remain elevated in the 300s. BUN 39, creatinine 1.29. Cardiac enzymes are negative times 2. IMAGING: Chest x-ray without any significant abnormalities. TELEMETRY: Telemetry reviewed. Occasional sinus bradycardia without any significant AV blocks or pauses. ASSESSMENT 1. Sinus bradycardia. 2. Presyncope. 3. Diastolic heart failure. 4. Diabetes. 5. Hypertension. 6. Hyperlipidemia. PLAN: Based on her history, sounds like patient likely had a vasovagal episode, likely contribution from her being dehydrated by being on diuretics as well as having very elevated blood sugars in the 300s. Patient feels much better at this time. No significant arrhythmias noted on telemetry to contribute to her presyncopal episode. Patient is okay to be discharged from a cardiovascular standpoint and can follow up as an outpatient. No further cardiovascular studies are indicated at this time. Thank you for this interesting consult. We will sign off. Job#: [id number] GUANACO
[2018-02-07 04:00] VITALS: BP 141/65
[2018-02-07] MEDS: GABAPENTIN 300 MG CAP PO SCH (06:31)
[2018-02-07 07:30] VITALS: BP 123/58
[2018-02-07 07:45] VITALS: BP 123/58
[2018-02-07] MEDS: FAMOTIDINE 20 MG TAB PO SCH (08:02)
[2018-02-07] MEDS: GLIMEPIRIDE 2 MG TAB PO SCH (08:02)
[2018-02-07] MEDS: ASPIRIN 81 MG CHEW TAB PO SCH (08:02)
[2018-02-07] MEDS: PANTOPRAZOLE SOD 40 MG TABEC PO SCH (08:03)
[2018-02-07] MEDS: FENOFIBRATE 145 MG TAB PO SCH (08:03)
[2018-02-07] MEDS: PAROXETINE HCL 20 MG TAB PO SCH (08:03)
[2018-02-07] MEDS: ROPINIROLE HCL 1 MG TAB PO SCH (08:03)
[2018-02-07] MEDS: TRAMADOL HCL 50 MG TAB PO SCH (08:03)
[2018-02-07] MEDS: SOLIFENACIN SUCCINATE 5 MG TAB PO SCH (08:04)
[2018-02-07] MEDS: FUROSEMIDE 40 MG TAB PO SCH (08:04)
[2018-02-07] MEDS: INSULIN REGULAR, HUMAN 100 UNIT/1 ML 3ML VIAL SQ SCH ×2 (08:05→12:42)
--- NOTE | 2018-02-07 10:26 | Discharge Summary ---
Ms. Painter is a 62-year-old female with a history of diabetes, hypertension, hyperlipidemia, depression, diastolic CHF came to the emergency room because she was having breathlessness and started feeling dizzy like she was going to pass out. They called 911, and they brought her to the emergency room. She was found to have sinus bradycardia. She has been evaluated by cardiology, who cleared her to go home. He thinks this was just a vasovagal episode. PHYSICAL EXAMINATION GENERAL: Today, she is awake and alert. She is feeling better. She wants to go home. VITALS: Temperature is 97, blood pressure 123/58, heart rate 63. HEART: Regular rate. LUNGS: Clear to auscultation. ABDOMEN: Distended and soft. BLOOD WORK: White count 6.94, hemoglobin 11.3. Glucose 271. Toxicology was negative. Urine was negative. Had a chest x-ray done on admission that shows hypoinflated lungs. Slight increase in the central pulmonary venous congestion. DISCHARGE DIAGNOSES 1. Sinus bradycardia. 2. Near syncopal episode, probably due to vasovagal episode. 3. Diabetes, type 2. 4. Hypertension. 5. Hyperlipidemia. 6. Depression. PLAN: Discharge the patient home. Continue ADA diet. Continue insulin. Continue other home medications. Follow up with me in 1 week. Please see home medication reconciliation list. All of this was discussed with the patient. All questions were answered to satisfaction. RUSSELL OLIVO MD Job#: [id number] ND
[2018-02-07 12:02] VITALS: BP 126/65
[2018-02-07] MEDS ORDERED: GLIMEPIRIDE 2 MG TAB PO SCH (17:00)
== END 2018-02-07 13:55 | disposition home or self-care (01) ==
LOC: ER 09:12 → ERHOLD 11:46 → IMCU 13:09 → MED/SURG2 16:53
PROVIDERS: ADMIT Internal Medicine; ATTEND Internal Medicine
DX: R55 Syncope and collapse (principal); I95.9 Hypotension, unspecified; I11.0 Hypertensive heart disease with heart failure; I50.30 Unspecified diastolic (congestive) heart failure; E11.9 Type 2 diabetes mellitus without complications; E78.5 Hyperlipidemia, unspecified; E66.01 Morbid (severe) obesity due to excess calories; R00.1 Bradycardia, unspecified; F32.9 Major depressive disorder, single episode, unspecified; Z68.41 Body mass index [BMI] 40.0-44.9, adult
CPT/HCPCS: 36415 ×4; 71045; 80053; 80061; 80307; 81001; 82150; 82550 ×2; 82553 ×2; 82948 ×4; 83690; 83735; 83880; 84484 ×2; 85025; 93005; 94640 ×2; 97139; G0378 ×4; J2405; J7040; S0164 ×3

== ENCOUNTER 2018-04-03 01:16 | Emergency (ER) | payer OTHER ==
[~2018-04-03] VITALS: Ht 160 cm; Wt 108.9 kg
[2018-04-03] MEDS ORDERED: ALBUTEROL SULF 0.083% NEB SOLN 3 ML NEB NEB STA (01:31)
[2018-04-03] MEDS ORDERED: IPRATROPIUM BROMIDE 0.02% 2.5 ML NEB NEB STA (01:31)
[2018-04-03] MEDS ORDERED: SODIUM CHLORIDE 0.9% 500ML 500 ML IV STA (01:31)
[2018-04-03] MEDS ORDERED: ASPIRIN 81 MG CHEW TAB PO ONE (01:45)
[2018-04-03] MEDS ORDERED: FAMOTIDINE 20 MG/2 ML VIAL IV ONE (01:45)
--- NOTE | 2018-04-03 02:20 | Diagnostic Imaging Report ---
EXAMINATION: CHEST SINGLE (PORTABLE) INDICATION: Shortness of breath COMPARISON: 02/04/2018 FINDINGS: TUBES and LINES: None. LUNGS: Lungs are not well inflated. There are bibasilar atelectasis. There is mild prominence of the central pulmonary vasculature, consistent with pulmonary venous congestion. PLEURA: No pleural effusion or pneumothorax. HEART AND MEDIASTINUM: Cardiac size is mildly enlarged. BONES AND SOFT TISSUES: No acute osseous lesion. Soft tissues are unremarkable. UPPER ABDOMEN: No free air under the diaphragm. IMPRESSION: No acute thoracic abnormality. Central vascular congestion Signed by: Dr. Liborio Noonan M.D. on 04/03/2018 2:17 AM
[2018-04-03 02:22] LABS: BASOPHILS # (AUTO) 0.1 (0.0-0.1); EOSINOPHILS # (AUTO) 0.2 (0.0-0.4); EOSINOPHILS % 3.3 % (0.0-6.0); HEMATOCRIT 38.3 % (34.2-44.1); HEMOGLOBIN 11.5 g/dL (12.0-16.0); LYMPHOCYTES # (AUTO) 1.1 (1.0-3.2); LYMPHOCYTES % 18.5 % (18.0-39.1); MEAN CORPUSCULAR VOLUME 86.5 fL (81-99); MONOCYTES # (AUTO) 0.4 (0.2-0.8); MONOCYTES % 6.8 % (4.4-11.3); NEUTROPHILS # (AUTO) 4.2 (2.1-6.9); NEUTROPHILS % 69.7 % (38.7-80.0); PLATELET COUNT 175 x10e3/uL (140-360); RED BLOOD COUNT 4.43 x10e6/uL (3.6-5.1); RED CELL DISTRIBUTION WIDTH 15.9 % (11.7-14.4)
[2018-04-03 02:37] LABS: BACTERIA,URINE RARE /HPF; BILIRUBIN,URINE NEGATIVE (NEGATIVE); CLARITY,URINE CLEAR (CLEAR); COLOR,URINE COLORLESS (YELLOW); EPITHELIAL CELLS,URINE FEW /LPF; KETONES,URINE NEGATIVE (NEGATIVE); LEUKOCYTE ESTERASE ,URINE NEGATIVE (NEGATIVE); NITRITE,URINE NEGATIVE (NEGATIVE); PROTEIN,URINE DIPSTICK NEGATIVE (NEGATIVE); RBC,URINE 0-5 /HPF (0-5); URINE UROBILINOGEN 0.2 mg/dL (0.2 - 1); WBC,URINE (MAN) 0-5 /HPF (0-5)
[2018-04-03 02:40] LABS: ALANINE AMINOTRANSFERASE 18 IU/L (0-55); ALBUMIN 3.5 g/dL (3.5-5.0); ALBUMIN/GLOBULIN RATIO 0.9 (0.8-2.0); ALKALINE PHOSPHATASE 56 IU/L (40-150); ANION GAP 14.8 mmol/L (8-16); BLOOD UREA NITROGEN 49 mg/dL (7-26); BUN/CREATININE RATIO 25 (6-25); CALCIUM 9.3 mg/dL (8.4-10.2); CARBON DIOXIDE 29 mmol/L (22-29); CHLORIDE 100 mmol/L (98-107); CREATINE KINASE 54 IU/L (29-168); CREATININE, SERUM 1.93 mg/dL (0.57-1.11); EST GLOMERULAR FILTRATION RATE 26 ML/MIN (60-); POTASSIUM 3.8 mmol/L (3.5-5.1); SODIUM 140 mmol/L (136-145)
[2018-04-03 02:45] LABS: GLUCOSE 58 mg/dL (74-118)
[2018-04-03] MEDS ORDERED: DEXTROSE 50% SYRINGE 50 ML IV ONE (02:49)
[2018-04-03 03:43] VITALS: BP 102/41
== END 2018-04-03 04:19 | disposition home or self-care (01) ==
LOC: ER 01:16
DX: R06.00 Dyspnea, unspecified (principal); F41.1 Generalized anxiety disorder; E11.649 Type 2 diabetes mellitus with hypoglycemia without coma; I10 Essential (primary) hypertension; I51.9 Heart disease, unspecified
CPT/HCPCS: 36415; 71045; 80053; 81001; 82550; 82553; 82948; 83880; 84484; 85025; 99284; J7040; J7799

== ENCOUNTER 2018-05-30 19:52 | Emergency (ER) | payer OTHER ==
[~2018-05-30] VITALS: Ht 160 cm; Wt 108.9 kg
== END 2018-05-30 20:30 | disposition home or self-care (01) ==
LOC: ER 19:52
DX: S00.451A Superficial foreign body of right ear, initial encounter (principal); I10 Essential (primary) hypertension; E11.9 Type 2 diabetes mellitus without complications; I50.9 Heart failure, unspecified; G25.81 Restless legs syndrome
CPT/HCPCS: 99282

== ENCOUNTER 2018-06-27 03:06 | Inpatient (IN) | payer OTHER ==
[~2018-06-27] VITALS: Ht 160 cm; Wt 168.7 kg
[2018-06-27] MEDS ORDERED: ALBUTEROL SULF 0.083% NEB SOLN 3 ML NEB NEB STA (03:37)
[2018-06-27] MEDS ORDERED: IPRATROPIUM BROMIDE 0.02% 2.5 ML NEB NEB ONE (03:45)
--- NOTE | 2018-06-27 04:43 | Diagnostic Imaging Report ---
CHEST 2 VIEWS, Technique: CHEST 2 VIEWS Comparison: 04/03/2018 Clinical history: Shortness of breath DISCUSSION: Stable mildly enlarged cardiomediastinal silhouette. Low lung volumes with mild bilateral interstitial opacity and bibasilar atelectasis or scarring. No effusion or pneumothorax. IMPRESSION: Cardiomegaly with findings which may be related to edema with or without underlying chronic lung change. Consider short-term follow-up upright PA and lateral. Signed by: Dr Susan Alfaro MD on 06/27/2018 4:40 AM
[2018-06-27 05:54] LABS: BASOPHILS # (AUTO) 0.1 (0.0-0.1); BASOPHILS % 0.9 % (0.0-1.0); EOSINOPHILS # (AUTO) 0.2 (0.0-0.4); EOSINOPHILS % 3.3 % (0.0-6.0); HEMATOCRIT 35.5 % (34.2-44.1); HEMOGLOBIN 10.7 g/dL (12.0-16.0); LYMPHOCYTES # (AUTO) 1.2 (1.0-3.2); LYMPHOCYTES % 17.3 % (18.0-39.1); MEAN CORPUSCULAR HEMOGLOBIN 25.9 pg (28-32); MEAN CORPUSCULAR HGB CONC 30.1 g/dL (31-35); MONOCYTES # (AUTO) 0.4 (0.2-0.8); MONOCYTES % 6.2 % (4.4-11.3); NEUTROPHILS % 71.4 % (38.7-80.0); PLATELET COUNT 179 x10e3/uL (140-360); RED BLOOD COUNT 4.13 x10e6/uL (3.6-5.1); RED CELL DISTRIBUTION WIDTH 15.7 % (11.7-14.4)
[2018-06-27 06:18] LABS: ALANINE AMINOTRANSFERASE 17 IU/L (0-55); ALBUMIN 3.4 g/dL (3.5-5.0); ALKALINE PHOSPHATASE 67 IU/L (40-150); ANION GAP 13.8 mmol/L (8-16); BLOOD UREA NITROGEN 24 mg/dL (7-26); BUN/CREATININE RATIO 23 (6-25); CALCIUM 9.1 mg/dL (8.4-10.2); CARBON DIOXIDE 25 mmol/L (22-29); CHLORIDE 106 mmol/L (98-107); CREATINE KINASE 72 IU/L (29-168); CREATININE, SERUM 1.05 mg/dL (0.57-1.11); EST GLOMERULAR FILTRATION RATE 53 ML/MIN (60-); GLUCOSE 112 mg/dL (74-118); POTASSIUM 3.8 mmol/L (3.5-5.1); SODIUM 141 mmol/L (136-145)
[2018-06-27] MEDS ORDERED: DEXTROSE 50% SYRINGE 50 ML IV PRN ×2 (07:15→16:30)
[2018-06-27] MEDS ORDERED: SODIUM CHLORIDE FLUSH 10 ML SYR INJ PRN (07:15)
[2018-06-27] MEDS ORDERED: ASPIRIN 81 MG CHEW TAB PO ONE (07:15)
[2018-06-27] MEDS: INSULIN REGULAR, HUMAN 100 UNIT/1 ML 3ML VIAL SQ SCH ×4 (08:10→22:03)
[2018-06-27] MEDS: FUROSEMIDE INJ 10 MG/ML 4 ML VIAL IV SCH ×3 (08:10→17:37)
--- NOTE | 2018-06-27 09:00 | History and Physical ---
Ms. Painter is a 62-year-old female with a history of diabetes, chronic kidney disease, peripheral neuropathy, sleep apnea, obesity, restless leg syndrome, that came to the emergency room because she said yesterday she started feeling short of breath. She has been having some cough and wheezing. About 2 in the morning, she was doing worse, so she decided to come to the emergency room. PAST MEDICAL HISTORY: The patient has a history of COPD, diabetes, type 2 with chronic renal failure, chronic renal failure, stage, diabetes, type 2 with neuropathy, peripheral neuropathy, history of obesity, sleep apnea, restless leg syndrome. SOCIAL HISTORY: She lives at home. She used to smoke, but she does not smoke anymore, and she does not drink. ALLERGIES: SHE IS ALLERGIC TO PENICILLIN. PHYSICAL EXAMINATION GENERAL: The patient is in the emergency room. She is awake and alert. She is still feeling some shortness of breath. VITALS: Temperature was 97.3, blood pressure 174/80. HEART: Regular rate. LUNGS: Has scattered bilateral wheezing. ABDOMEN: Distended and soft. BLOOD WORK: White count is 6.99, hemoglobin 10.7, hematocrit 35.5. Potassium 3.8, creatinine is 1.05. GFR is 53. Chest x-ray shows cardiomegaly with edema with and without underlying chronic lung disease. ASSESSMENT AND PLAN 1. Chronic obstructive pulmonary disease exacerbation. 2. Hzzcf-nd-guzhgai diastolic congestive heart failure. 3. Diabetes with chronic kidney disease. 4. Chronic kidney disease, stage 3. 5. Diabetes, type 2 with neuropathy. 6. Peripheral neuropathy. 7. Uncontrolled hypertension. 8. Depression. 9. Restless leg syndrome. 10. Sleep apnea. 11. Obesity. PLAN: At the present time with this patient is to admit the patient to the hospital. She is on neb treatments with albuterol. She is on furosemide 40 mg IV twice a day. We are going to put her on an ADA diet and sliding scale with insulin. Continue other home medications. Continue aspirin 81 mg daily. We are going to get a cardiology consult with Dr. Rodrigues. All of this was discussed with the patient. All questions were answered to satisfaction. Job#: [id number] [place]
[2018-06-27 13:30] VITALS: BP 139/78
[2018-06-27 13:40] VITALS: BP 139/78
[2018-06-27] MEDS ORDERED: INSULIN REGULAR, HUMAN 100 UNIT/1 ML 3ML VIAL SQ ONE (13:45)
[2018-06-27 14:02] LABS: CREATINE KINASE 63 IU/L (29-168)
[2018-06-27] MEDS ORDERED: PNEUMOCOCCAL VACCINE POLYVALENT 23 MCG/0.5 ML VIAL IM SCH ×2 (14:15→17:30)
[2018-06-27 16:00] VITALS: BP 173/79
[2018-06-27] MEDS ORDERED: SERTRALINE HCL100 MG PO (17:01)
[2018-06-27] MEDS ORDERED: HUMULIN R500 UNIT/1 SC (17:01)
[2018-06-27] MEDS ORDERED: SPIRONOLACTONE25 MG PO (17:12)
[2018-06-27] MEDS: CLONIDINE HCL 0.1 MG TAB PO PRN (17:38)
[2018-06-27] MEDS: ALBUTEROL/IPRATROPIUM 3 ML NEB NEB SCH ×2 (20:15→23:30)
[2018-06-27 20:43] VITALS: BP 137/69
[2018-06-27 20:45] VITALS: BP 137/69
[2018-06-27 22:50] LABS: CREATINE KINASE 33 IU/L (29-168)
[2018-06-28] VITALS (8 sets, daily range): BP systolic 132–178; BP diastolic 57–72
[2018-06-28] MEDS: LEVOFLOXACIN 500MG/D5W 100ML 100 ML IV SCH ×2 (00:48→21:55)
[2018-06-28] MEDS ORDERED: SODIUM CHLORIDE 0.9% 250ML 250 ML ONE (00:53)
[2018-06-28] MEDS: ALBUTEROL/IPRATROPIUM 3 ML NEB NEB SCH ×6 (02:55→23:00)
[2018-06-28 05:44] LABS: BASOPHILS # (AUTO) 0.1 (0.0-0.1); EOSINOPHILS # (AUTO) 0.2 (0.0-0.4); EOSINOPHILS % 2.7 % (0.0-6.0); HEMATOCRIT 37.1 % (34.2-44.1); HEMOGLOBIN 11.1 g/dL (12.0-16.0); LYMPHOCYTES # (AUTO) 0.8 (1.0-3.2); MEAN CORPUSCULAR HEMOGLOBIN 25.5 pg (28-32); MEAN CORPUSCULAR HGB CONC 29.9 g/dL (31-35); MEAN CORPUSCULAR VOLUME 85.1 fL (81-99); MONOCYTES # (AUTO) 0.5 (0.2-0.8); MONOCYTES % 7.3 % (4.4-11.3); NEUTROPHILS # (AUTO) 4.7 (2.1-6.9); NEUTROPHILS % 75.4 % (38.7-80.0); PLATELET COUNT 162 x10e3/uL (140-360); RED BLOOD COUNT 4.36 x10e6/uL (3.6-5.1); RED CELL DISTRIBUTION WIDTH 15.7 % (11.7-14.4)
[2018-06-28 06:18] LABS: ALBUMIN 3.3 g/dL (3.5-5.0); ALBUMIN/GLOBULIN RATIO 0.9 (0.8-2.0); CALCIUM 9.2 mg/dL (8.4-10.2); CREATININE, SERUM 1.1 mg/dL (0.57-1.11)
[2018-06-28] MEDS: INSULIN REGULAR, HUMAN 100 UNIT/1 ML 3ML VIAL SQ SCH ×4 (08:00→16:30)
[2018-06-28 08:05] LABS: CREATINE KINASE 61 IU/L (29-168)
[2018-06-28] MEDS: FUROSEMIDE INJ 10 MG/ML 4 ML VIAL IV SCH ×2 (08:30→17:24)
--- NOTE | 2018-06-28 09:02 | Progress Note ---
DATE: June 28, 2018 Ms. Painter is a 62-year-old female with a history of diabetes, chronic kidney disease, peripheral neuropathy, sleep apnea, obesity, restless leg syndrome, comes to the emergency room complaining of cough and shortness of breath. She has been started on IV antibiotics, neb treatments, IV Lasix. PHYSICAL EXAMINATION GENERAL: Today, she is awake and alert. She is feeling a little better. VITALS: Temperature is 97.7, blood pressure 147/67. HEART: Regular rate. LUNGS: Clear to auscultation. ABDOMEN: Soft. EXTREMITIES: Lower extremities with mild edema. BLOOD WORK: Potassium 4, creatinine 1.1, glucose 309. White count 6.29, hemoglobin 11.9, hematocrit 37.1. Chest x-ray done shows cardiomegaly with some edema. ASSESSMENT AND PLAN 1. Chronic obstructive pulmonary disease exacerbation. 2. Lyihe-kf-twrkidg diastolic congestive heart failure. 3. Diabetes, type 2 with chronic kidney disease. 4. Chronic kidney disease, stage 3. 5. Diabetes, type 2 with neuropathy. 6. Peripheral neuropathy. 7. Hypertension. 8. Restless leg syndrome. 9. Depression. 10. Sleep apnea. PLAN: At the present time, is to continue ADA diet. Sliding scale with insulin. Restart the home insulin. Continue neb treatments. IV antibiotics. IV Lasix. We are going to restart statins and beta blockers. Cardiology and pulmonary consults were requested. All of this was discussed with the patient. All questions were answered to satisfaction. Job#: [id number] GOLDIE
[2018-06-28] MEDS: CLONIDINE HCL 0.1 MG TAB PO PRN (12:15)
--- NOTE | 2018-06-28 15:12 | Consultation ---
DATE OF CONSULTATION: June 28, 2018 CARDIOLOGY CONSULTATION REASON FOR CONSULTATION: Shortness of breath. HISTORY OF PRESENT ILLNESS: This is a 63-year-old woman with a history of chronic diastolic heart failure, diabetes mellitus, hypertension, hyperlipidemia, depression, obesity, chronic obstructive pulmonary disease, who presented to the emergency department with shortness of breath. The patient said she has had progressive shortness of breath, worse with exertion, associated with lower extremity swelling, associated with some atypical chest discomfort. There are no other exacerbating or relieving factors. Upon arrival here, she seemed relatively stable and was found to have pulmonary edema on chest x-ray. Intravenous Lasix was started. The patient states that she already feels better. REVIEW OF SYSTEMS: A 12-point review of systems was conducted and was negative other than as noted above in the HPI. PAST MEDICAL HISTORY: Hypertension, hyperlipidemia, diabetes mellitus, chronic diastolic heart failure, chronic obstructive pulmonary disease, morbid obesity. PAST SURGICAL HISTORY: None recently. SOCIAL HISTORY: No illicit drug use, alcohol use or tobacco use. ALLERGIES: NO KNOWN DRUG ALLERGIES. MEDICATIONS: Please see medication reconciliation form. FAMILY HISTORY: No premature coronary artery disease or sudden cardiac . PHYSICAL EXAMINATION VITAL SIGNS: Temperature 96.8, heart rate 70, respirations 20, blood pressure 145/65, oxygen saturation 96% on room air. GENERAL: She is an obese woman lying comfortably in bed in no apparent distress, alert and oriented times 3. HEAD: Normocephalic and atraumatic. EYES: The extraocular muscles are intact. Conjunctivae are clear. NECK: No JVD. No bruits. CARDIOVASCULAR: Regular rate and rhythm. No murmurs. Normal S1 and S2. LUNGS: Diminished breath sounds in bilateral bases. ABDOMEN: Soft, nontender and nondistended. EXTREMITIES: Trace edema. VASCULAR: 2+ pulses. SKIN: Warm, dry and intact. NEUROLOGIC: No focal deficits noted. Cranial nerves are grossly intact. PSYCHIATRIC: Normal mood and affect. LABORATORY DATA: All reviewed and notable for hemoglobin 11.1 and 4 troponins that are negative. Glucose is 396. Creatinine 1.1. BNP is less than 10. TELEMETRY MONITORING: Normal sinus rhythm. CHEST X-RAY: Cardiomegaly with mild pulmonary vascular congestion. IMPRESSION 1. Ptvjj-mk-qnfhmxp diastolic heart failure. 2. Chronic obstructive pulmonary disease. 3. Hypertension. 4. Hyperlipidemia. 5. Diabetes mellitus. RECOMMENDATIONS: The patient has gzobu-nv-ookissi diastolic heart failure. Her echocardiogram showed preserved left ventricular systolic function. Continue Lasix for diuresis. Continue to monitor urinary output and daily labs. There is no evidence of acute coronary syndrome. Continue all the therapies per primary team. Her blood pressure is elevated and would resume an antihypertensive. May consider lisinopril or amlodipine. Otherwise, stable cardiovascular status, and no further inpatient testing is required. Job#: [id number]
--- NOTE | 2018-06-28 15:16 | Consultation ---
DATE OF CONSULTATION: June 28, 2018 PULMONARY CONSULTATION A patient of Dr. Lucille Huerta. A charming but unfortunate 63-year-old woman with a history of COPD, hypertension systolic, pulmonary hypertension, diabetes, restless legs syndrome, congestive heart failure. There is no history of obstructive sleep apnea. She has a history of diabetes mellitus. She has recently been ill with fever and cough. She is chronically slow and short of breath. She has had appendectomy and foot surgery. She smoked a pack and a half a day for approximately 14 years, quit in 1990. FAMILY HISTORY: Noncontributory. 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 Born in [place], [place]. PHYSICAL EXAMINATION GENERAL: A well-developed, moderately obese white female, in no acute distress, looking her stated age. HEAD: Normocephalic, atraumatic. EYES: Extraocular movements intact. LUNGS: Diminished breath sounds but clear. HEART: Regular rhythm. ABDOMEN: Nontender. EXTREMITIES: Nonedematous. IMPRESSIONS 1. Pulmonary hypertension. 2. Rule out obstructive sleep apnea. 3. History of smoking. 4. Acute exacerbation of chronic obstructive pulmonary disease. PLAN: Empiric antibiotics, bronchodilators, assess for supplemental oxygen, screening spirometry. Consider outpatient sleep study. Patient requests home oxygen and will set up . HOME MEDICATIONS 1. Proventil. 2. Aspirin. 3. TriCor. 4. Lasix. 5. Neurontin. 6. Glimepiride. 7. Metoprolol. 8. Ropinirole. 9. Zoloft. 10. Zocor. 11. Vesicare. 12. Aldactone. Thank you for this kind referral. Job#: [id number] ELIE
[2018-06-28] MEDS: SILDENAFIL CITRATE 20 MG TAB PO SCH ×2 (15:40→22:56)
[2018-06-28] MEDS: LISINOPRIL 10 MG TAB PO SCH (15:40)
[2018-06-28] MEDS ORDERED: INSULIN LISPRO 100 UNIT/1 ML 3ML VIAL SQ PRN (16:00)
[2018-06-28] MEDS ORDERED: INSULIN HUMAN REGULAR SC SCH (17:00)
[2018-06-28] MEDS ORDERED: FUROSEMIDE 40 MG TAB PO SCH (17:00)
[2018-06-28] MEDS: GLIMEPIRIDE 2 MG TAB PO SCH (17:24)
[2018-06-28] MEDS: METOPROLOL TARTRATE 50 MG TAB PO SCH (17:25)
[2018-06-28] MEDS: GABAPENTIN 300 MG CAP PO SCH (17:25)
[2018-06-28] MEDS ORDERED: LEVOFLOXACIN 500MG/D5W 100ML 100 ML IV SCH (21:30)
[2018-06-28] MEDS: SIMVASTATIN 40 MG TAB PO SCH (21:55)
[2018-06-28] MEDS: BENZONATATE 100 MG CAP PO PRN (21:55)
[2018-06-28] MEDS: ROPINIROLE HCL 1 MG TAB PO SCH (21:55)
[2018-06-28] MEDS: SOLIFENACIN SUCCINATE 5 MG TAB PO SCH (21:55)
[2018-06-28] MEDS: HEPARIN SOD (PORCINE) 5,000 UNIT/ML VIAL SC SCH (22:39)
[2018-06-29] VITALS: BP 101/53
[2018-06-29] MEDS: GABAPENTIN 300 MG CAP PO SCH ×5 (00:29→23:19)
[2018-06-29] MEDS: INSULIN REGULAR, HUMAN 100 UNIT/1 ML 3ML VIAL SQ SCH ×2 (00:30→07:30)
[2018-06-29] MEDS: ALBUTEROL/IPRATROPIUM 3 ML NEB NEB SCH ×6 (03:50→22:51)
[2018-06-29 04:00] VITALS: BP 100/49
[2018-06-29] MEDS: BENZONATATE 100 MG CAP PO PRN ×2 (05:21→20:54)
[2018-06-29 07:30] VITALS: BP 119/58
[2018-06-29] MEDS: GLIMEPIRIDE 2 MG TAB PO SCH ×2 (09:47→17:05)
[2018-06-29] MEDS: SPIRONOLACTONE 25 MG TAB PO SCH (09:47)
[2018-06-29] MEDS: ASPIRIN 81 MG CHEW TAB PO SCH (09:47)
[2018-06-29] MEDS: FUROSEMIDE INJ 10 MG/ML 4 ML VIAL IV SCH ×2 (09:47→17:05)
[2018-06-29] MEDS: SILDENAFIL CITRATE 20 MG TAB PO SCH ×3 (09:48→20:31)
[2018-06-29] MEDS: ROPINIROLE HCL 1 MG TAB PO SCH ×3 (09:48→20:31)
[2018-06-29] MEDS: LISINOPRIL 10 MG TAB PO SCH (09:48)
[2018-06-29] MEDS: SERTRALINE HCL 100 MG TAB PO SCH (09:48)
[2018-06-29] MEDS: METOPROLOL TARTRATE 50 MG TAB PO SCH ×2 (09:48→17:06)
[2018-06-29] MEDS: HEPARIN SOD (PORCINE) 5,000 UNIT/ML VIAL SC SCH ×2 (09:48→20:33)
[2018-06-29] MEDS: FENOFIBRATE 145 MG TAB PO SCH (09:48)
--- NOTE | 2018-06-29 09:56 | Progress Note ---
DATE: June 29, 2018 SUBJECTIVE: Ms. Painter is a 62-year-old female with history of diabetes, chronic kidney disease, peripheral neuropathy, sleep apnea, obesity, restless leg syndrome, came to the emergency room complaining of shortness of breath and cough. She was started on neb treatments, IV antibiotics, and IV Lasix. She has been seen by figure skater and polymer scientist. Company Doctor thinks patient has pulmonary hypertension. PFTs have been ordered. PHYSICAL EXAMINATION: GENERAL: Today, she is awake and alert. She is feeling better. VITAL SIGNS: Temperature is 97.7, blood pressure 119/58. HEART: Regular rate. LUNGS: Decreased breath sounds bilaterally. ABDOMEN: Distended and soft. BLOOD WORK: White count 6.29, hemoglobin 11.1. Glucose today 217. ASSESSMENT: 1. Chronic obstructive pulmonary disease exacerbation. 2. Iomyz-av-yhfpxae diastolic congestive heart failure. 3. Pulmonary hypertension. 4. Diabetes with chronic kidney disease. 5. Chronic kidney disease, stage 3. 6. Diabetes type 2 with neuropathy. 7. Peripheral neuropathy. 8. Hypertension. 9. Restless leg syndrome. 10. Depression. 11. Sleep apnea. PLAN: At present time is continue ADA diet, sliding scale with insulin. Restart home medication. Continue IV antibiotic, neb treatments, IV Lasix, and we are awaiting for PFT results. She was started on sildenafil 20 mg 3 times a day. Will continue to monitor her breathing. Probably, she will need 1 more day stay at the hospital. All this was discussed with patient. All questions were answered to satisfaction. Job#: [id number]
[2018-06-29] MEDS: INSULIN HUMAN REGULAR SQ SCH ×2 (11:51→17:10)
[2018-06-29 11:55] VITALS: BP 152/91
--- NOTE | 2018-06-29 15:44 | Progress Note ---
DATE: June 29, 2018 CARDIOLOGY PROGRESS NOTE SUBJECTIVE: Patient found sleeping comfortably. Denies any chest pain. Breathing has improved. OBJECTIVE VITAL SIGNS: Temperature 97.7, heart rate is 68, respirations are 18, blood pressure is 152/91, oxygen saturation 95% on room air. GENERAL: Currently old-appearing obese woman, lying comfortably in bed, in no apparent distress. HEAD: Normocephalic and atraumatic. NECK: No jugular venous distention. CARDIOVASCULAR: Regular rate and rhythm. Normal S1 and S2. Mild systolic murmur at the left sternal border. LUNGS: Diminished breath sounds at bilateral bases. ABDOMEN: Soft, obese, nontender. EXTREMITIES: Trace edema. CARDIOVASCULAR MEDICATIONS: Reviewed. LABORATORY DATA: Reviewed. TELEMETRY MONITORING: Normal sinus rhythm. IMPRESSIONS 1. Haudc-ws-hrqatwt diastolic heart failure. 2. Chronic obstructive pulmonary disease. 3. Hypertension. 4. Hyperlipidemia. 5. Diabetes mellitus. 6. Obesity. RECOMMENDATIONS: Patient's volume status appears to be improved. Continue intravenous Lasix for 1 more day and initiate Lasix 40 mg p.o. b.i.d. at the time of discharge. She has no evidence of acute coronary syndrome as her cardiac enzymes were within normal limits. Her left ventricular systolic function remains preserved. Can increase lisinopril for better blood pressure control. Otherwise, patient is stable from a cardiovascular standpoint for discharge in outpatient followup. Job#: [id number] CQ
--- NOTE | 2018-06-29 16:30 | Diagnostic Imaging Report ---
Ventilation/perfusion lung scan Clinical Information: 63 F with CHR and pulmonary hypertension Comparison: Chest radiograph 06/27/2018 Discussion: Xenon-133 gas 15.5 mCi was administered via inhalation. Dynamic images of the lungs in the posterior projection were obtained through single breath, equilibrium, and washout phases. Distribution of tracer activity is irregular throughout the lungs. There are no segmental ventilatory defects. Washout of tracer is diffusely delayed with diffuse air trapping. Perfusion images of the lungs were obtained in multiple projections following intravenous administration of approximately 5.5 mCi of Tc-99m MAA. Distribution of tracer appears physiologic throughout the lungs. The contours of the lungs are well demarcated. There are no segmental perfusion defects of any size. The cardiomediastinal silhouette is mildly enlarged. Impression: 1. Scan findings represent a VERY LOW probability for acute pulmonary embolic disease based on the PIOPED II criteria. Scan evidence of obstructive lung disease. 2. Mildly enlarged cardiac silhouette. Signed by: Dr. Tami June M.D. on 06/29/2018 4:27 PM
[2018-06-29 16:34] VITALS: BP 108/55
[2018-06-29 20:00] VITALS: BP 105/46
[2018-06-29] MEDS: LEVOFLOXACIN 500MG/D5W 100ML 100 ML IV SCH (20:30)
[2018-06-29] MEDS: SIMVASTATIN 40 MG TAB PO SCH (20:31)
[2018-06-29] MEDS: SOLIFENACIN SUCCINATE 5 MG TAB PO SCH (20:31)
[2018-06-30] VITALS (7 sets, daily range): BP systolic 97–126; BP diastolic 43–81
[2018-06-30] MEDS: BENZONATATE 100 MG CAP PO PRN ×2 (04:22→21:32)
[2018-06-30] MEDS: GABAPENTIN 300 MG CAP PO SCH ×4 (05:41→23:25)
[2018-06-30] MEDS: ALBUTEROL/IPRATROPIUM 3 ML NEB NEB SCH ×6 (07:20→22:55)
[2018-06-30] MEDS: INSULIN HUMAN REGULAR SQ SCH ×2 (09:00→17:16)
[2018-06-30] MEDS: GLIMEPIRIDE 2 MG TAB PO SCH (09:00)
[2018-06-30] MEDS: FUROSEMIDE INJ 10 MG/ML 4 ML VIAL IV SCH ×2 (09:26→17:16)
[2018-06-30] MEDS: ASPIRIN 81 MG CHEW TAB PO SCH (09:26)
[2018-06-30] MEDS: SPIRONOLACTONE 25 MG TAB PO SCH (09:26)
[2018-06-30] MEDS: METOPROLOL TARTRATE 50 MG TAB PO SCH ×2 (09:27→17:16)
[2018-06-30] MEDS: HEPARIN SOD (PORCINE) 5,000 UNIT/ML VIAL SC SCH ×2 (09:27→20:48)
[2018-06-30] MEDS: ROPINIROLE HCL 1 MG TAB PO SCH ×3 (09:27→20:46)
[2018-06-30] MEDS: LISINOPRIL 10 MG TAB PO SCH (09:27)
[2018-06-30] MEDS: SILDENAFIL CITRATE 20 MG TAB PO SCH ×3 (09:27→21:06)
[2018-06-30] MEDS: SERTRALINE HCL 100 MG TAB PO SCH (09:27)
[2018-06-30] MEDS: FENOFIBRATE 145 MG TAB PO SCH (09:27)
--- NOTE | 2018-06-30 11:11 | Progress Note ---
DATE: June 30, 2018 CARDIOLOGY PROGRESS NOTE SUBJECTIVE: The patient continues to complain of a cough and also occasional shortness of breath and also occasional pain in her chest especially after coughing. OBJECTIVE VITAL SIGNS: Temperature 98.1, pulse 76, respiratory rate 18, blood pressure 110/55, oxygen saturation 94% on room air. CARDIOVASCULAR MEDICATIONS: Metoprolol 50 mg p.o. b.i.d., fenofibrate 145 p.o. daily, heparin 5000 units subcutaneous q.12 hours, lisinopril 10 mg p.o. daily, sildenafil 20 mg p.o. t.i.d., spironolactone 25 mg p.o. daily, aspirin 81 p.o. daily, furosemide 40 mg IV b.i.d., simvastatin 40 mg p.o. at bedtime, clonidine 0.1 mg q.6 hours p.r.n. for hypertension. LABS: No new labs today. V/Q scan from yesterday with scant evidence of obstructive lung disease, mild enlarged cardiac silhouette. PHYSICAL EXAM GENERAL: Alert and oriented times 3, resting comfortably in bed. Does not appear to be in any acute distress at this moment. LUNGS: Diminished breath sounds throughout. Crackles to the right lower lobe posteriorly. CARDIOVASCULAR: Regular rate and rhythm. S1, S2, S3, S4 auscultated. No murmur noted. ABDOMEN: Rounded, soft, nontender. LOWER EXTREMITIES: Nonpitting edema bilaterally. TELEMETRY: Sinus rhythm. IMPRESSION 1. Hifbd-bn-xuskkhi diastolic heart failure. 2. Chronic obstructive pulmonary disease. 3. Hypertension. 4. Hyperlipidemia. 5. Diabetes mellitus. 6. Obesity. 7. Chronic obstructive pulmonary disease flare-up. RECOMMENDATIONS: Continue with the above-listed cardiac medications. Antimicrobial therapy per primary team. Continue diuresis. Monitor volume status. Her ventricular systolic function remains preserved. Blood pressure is well controlled today. We will continue to monitor this patient for now. Maintain on telemetry. No any other changes. Dictated by Jessica Mendez NP Job#: [id number] FABY
[2018-06-30] MEDS ORDERED: DEXTROSE 50% SYRINGE 50 ML IV PRN (13:45)
--- NOTE | 2018-06-30 15:14 | Progress Note ---
DATE: June 30, 2018 INTERNAL MEDICINE PROGRESS NOTE SUBJECTIVE: Patient is still short of breath before. PHYSICAL EXAM VITAL SIGNS: Blood pressure 107/58, temperature 97.9, heart rate 70 per minute, respiratory rate 19 per minute, oxygen saturation 93%. HEART: Regular rhythm. Normal S1, S2 sounds. LUNGS: Rales on both bases on both lungs. ABDOMEN: Soft. No distension. EXTREMITIES: No evidence of cyanosis, edema, or trauma. LABS: On the BMP; sodium 138, potassium 4.0, chloride 99, CO2 of 29, BUN 25, creatinine 1.10, glucose 309. On the CBC; white blood count 6.29, hemoglobin 11.1, hematocrit 37.1, and platelet count 132,000. AST 9, ALT 15, total bilirubin 0.5, alkaline phosphatase 66. FINAL IMPRESSION 1. Xoojk-pp-secnuqr diastolic congestive heart failure. 2. Hypertension. 3. Uncontrolled diabetes mellitus type 2 with diabetic neuropathy. 4. Acute renal failure. 5. Overactive bladder. 6. Obesity. PLAN OF TREATMENT: Continue albuterol and Atrovent q.6 hours. Continue Levaquin 500 mg IV daily, furosemide 40 mg IV twice a day. Continue sildenafil 20 mg 3 times a day for pulmonary hypertension. Continue fenofibrate 145 mg daily, Zoloft 100 mg daily, gabapentin 300 mg p.o. q.6 hours. Continue clonidine 0.1 mg q.6 hours as needed, lisinopril 10 mg daily, metoprolol 50 mg twice a day, VESIcare 10 mg daily. Continue Humalog 30 units twice a day, which we are going to increase to 40 units twice a day because of uncontrolled blood sugar. Continue heparin 5000 units subcutaneously twice a day, simvastatin 40 mg daily, glimepiride 4 mg twice a day, Tessalon 100 mg q.6 hours, aspirin 81 mg daily, Aldactone 25 mg daily, Requip 2 mg 3 times a day. Discussed the case with nurse and the patient. Time spent 45 minutes. Job#: [id number] SALINA
[2018-06-30] MEDS ORDERED: INSULIN REGULAR, HUMAN 100 UNIT/1 ML 3ML VIAL SQ SCH (16:30)
[2018-06-30] MEDS ORDERED: INSULIN HUMAN REGULAR SQ SCH (17:00)
--- NOTE | 2018-06-30 19:22 | Consultation ---
DATE OF CONSULTATION: June 30, 2018 ENDOCRINE CONSULTATION This is a patient of Dr. Russo and Dr. Huerta. Thank you very much for referring this patient. HISTORY OF PRESENT ILLNESS: This is a 63-year-old white female who is referred to me for evaluation of uncontrolled diabetes mellitus. Patient came to the hospital with history of cough and chest congestion. She has history of diabetes mellitus type 2 with complications including severe diabetic sensory neuropathy. Patient takes U-500 insulin 30 units twice daily. Her blood sugar during the hospital stay has been 300 to 400 range. Patient also has history of hypertension, COPD, hyperlipidemia, restless leg syndrome. She is on several medications at home besides insulin, also glimepiride and metformin. PHYSICAL EXAMINATION GENERAL: Today, the patient is alert, awake, little bit apprehensive. She is moderately overweight. VITAL SIGNS: Her heart rate is around 78, blood pressure 140/80 mmHg. HEENT: Essentially unremarkable. Thyroid is palpable. Clinically, she is near euthyroid. CHEST: Bilateral vesicular breathing. She has bilateral bronchospasm basilar rales. CARDIAC: First and second heart sounds. There is no third or fourth heart sounds. Ejection sound grade 2/6. EXTREMITIES: Patient has evidence of diabetic sensory neuropathy in both lower extremities. CLINICAL IMPRESSION 1. Diabetes mellitus type 2, uncontrolled with complications. 2. Chronic obstructive pulmonary disease. 3. Coronary artery disease. 4. Congestive cardiac failure. 5. Hypertension. 6. Obesity. PLAN: At this time is to increase her U-500 insulin to 30 three times a day. Monitor her blood sugars closely. Will do a hemoglobin A1c and thyroid function test. Thanks for referring this patient. I will be following this patient with you. Job#: [id number] SALINA
[2018-06-30] MEDS: SIMVASTATIN 40 MG TAB PO SCH (20:46)
[2018-06-30] MEDS: SOLIFENACIN SUCCINATE 5 MG TAB PO SCH (20:46)
[2018-06-30] MEDS: INSULIN LISPRO 100 UNIT/1 ML 3ML VIAL SQ SCH (20:48)
[2018-06-30] MEDS: LEVOFLOXACIN 500MG/D5W 100ML 100 ML IV SCH (21:00)
[2018-06-30] MEDS: PANTOPRAZOLE SOD 40 MG TABEC PO SCH (21:35)
[2018-07-01] VITALS (8 sets, daily range): BP systolic 98–121; BP diastolic 48–62
[2018-07-01] MEDS: ALBUTEROL/IPRATROPIUM 3 ML NEB NEB SCH ×7 (02:52→23:35)
[2018-07-01] MEDS: GABAPENTIN 300 MG CAP PO SCH ×4 (05:32→23:59)
[2018-07-01] MEDS: INSULIN LISPRO 100 UNIT/1 ML 3ML VIAL SQ SCH ×4 (07:30→21:42)
[2018-07-01] MEDS: LISINOPRIL 10 MG TAB PO SCH (08:52)
[2018-07-01] MEDS: ASPIRIN 81 MG CHEW TAB PO SCH (08:52)
[2018-07-01] MEDS: SPIRONOLACTONE 25 MG TAB PO SCH (08:52)
[2018-07-01] MEDS: FUROSEMIDE INJ 10 MG/ML 4 ML VIAL IV SCH ×2 (08:52→16:29)
[2018-07-01] MEDS: FENOFIBRATE 145 MG TAB PO SCH (08:53)
[2018-07-01] MEDS: ROPINIROLE HCL 1 MG TAB PO SCH ×3 (08:53→21:40)
[2018-07-01] MEDS: SILDENAFIL CITRATE 20 MG TAB PO SCH ×3 (08:53→21:00)
[2018-07-01] MEDS: PANTOPRAZOLE SOD 40 MG TABEC PO SCH (08:53)
[2018-07-01] MEDS: SERTRALINE HCL 100 MG TAB PO SCH (08:53)
[2018-07-01] MEDS: HEPARIN SOD (PORCINE) 5,000 UNIT/ML VIAL SC SCH ×2 (08:54→21:41)
[2018-07-01] MEDS: INSULIN HUMAN REGULAR SQ SCH ×3 (08:55→16:30)
[2018-07-01] MEDS: METOPROLOL TARTRATE 50 MG TAB PO SCH ×2 (08:56→16:29)
--- NOTE | 2018-07-01 10:55 | Progress Note ---
DATE: July 01, 2018 CARDIOLOGY PROGRESS NOTE SUBJECTIVE: Patient continues to have a cough; however, she reports that it is slightly improved. She endorses some shortness of breath and also occasional chest tightness that is not new. OBJECTIVE VITAL SIGNS: Temperature 96.6, pulse 76, respiratory rate 21, blood pressure 121/62, oxygen saturation 95% on room air. GENERAL: Alert and oriented x3, resting comfortably in bed. Does not appear to be in acute distress at this time. LUNGS: Diminished breath sounds posterior lower lobes. Fine scattered crackles to the right lower lobe posteriorly. NECK: Supple. No JVD noted. CARDIOVASCULAR: Regular rate and rhythm. S1, S2, S3, S4 auscultated. No murmur. ABDOMEN: Soft, nontender. EXTREMITIES: Lower extremities, nonpitting edema bilaterally. CARDIOVASCULAR MEDICATIONS 1. Metoprolol 50 mg p.o. b.i.d. 2. Heparin 5000 units subcu q.12. 3. Fenofibrate 145 mg p.o. daily. 4. Sildenafil citrate 20 mg p.o. t.i.d. 5. Spironolactone 25 p.o. daily. 6. Aspirin 81 p.o. daily. 7. Lisinopril 10 p.o. daily. 8. Lasix 40 IV push b.i.d. 9. Simvastatin 40 mg p.o. h.s. 10. Clonidine p.r.n. use. LABS: No new labs today. TELEMETRY: Sinus rhythm. IMPRESSION 1. Ddglr-pa-nikiiye diastolic heart failure. 2. Chronic obstructive pulmonary disease exacerbation. 3. Hypertension. 4. Hyperlipidemia. 5. Diabetes mellitus. 6. Obesity. RECOMMENDATIONS: Continue with the above-listed cardiac medication. Continue diuresis. Consider transition to p.o. Lasix in the course of the week. Continue to monitor volume status. Her ventricular systolic function remains preserved at this point. Antimicrobial therapy per pulmonary and primary team. We will continue to follow this patient very closely. Dictated by: Jessica Mendez NP Job#: [id number] PKU
--- NOTE | 2018-07-01 13:37 | Diagnostic Imaging Report ---
Examination: Single AP view of the chest. COMPARISON: June 27, 2018 INDICATION: Congestive heart failure DISCUSSION: Lines/tubes: None. Lungs: Low lung volumes. Central venous congestion. No consolidation or pulmonary edema. Pleura: There is no pleural effusion or pneumothorax. Heart and mediastinum: The heart and the mediastinum are unremarkable. Bones and soft tissues: No acute bony abnormalities. IMPRESSION: 1. Central pulmonary venous congestion. No edema. Signed by: Dr. Adam Ayala M.D. on 07/01/2018 1:34 PM
--- NOTE | 2018-07-01 13:44 | Progress Note ---
DATE: July 01, 2018 INTERNAL MEDICINE PROGRESS NOTE SUBJECTIVE: Patient is doing well. No significant complaints except for cough. PHYSICAL EXAMINATION VITAL SIGNS: Blood pressure 110/60, temperature 98.6, heart rate 78 per minute, respiratory rate 21 per minute, oxygen saturation 95%. HEART: Shows regular rhythm. Normal S1, S2 sounds. LUNGS: Clear bilaterally. ABDOMEN: Soft. LABORATORY DATA: On the blood work, BMP showed sodium 138, potassium 4.0, chloride 99, CO2 of 29, BUN 25, creatinine 1.10, glucose 309. On the CBC, white blood count 6.29, hemoglobin 11.1, hematocrit 37.1, platelet count of 162,000. AST 9, ALT 15, total bilirubin 0.5, and alkaline phosphatase 66. FINAL IMPRESSION 1. Fegpq-tj-yozazap diastolic congestive heart failure. 2. Hypertension. 3. Uncontrolled diabetes mellitus type 2 with diabetic neuropathy. 4. Acute renal failure. 5. Overactive bladder. 6. Obesity. PLAN OF TREATMENT: Continue albuterol and Atrovent q.4 hours, Levaquin 500 mg IV daily, furosemide 40 mg IV twice a day. Continue sildenafil citrate 20 mg 3 times a day for pulmonary hypertension. Continue fenofibrate 145 mg daily, Zoloft 500 mg daily, D50 IV push as needed for hypoglycemia, clonidine 0.1 mg q.6 hours as needed for hypertension. Continue lisinopril 10 mg daily, metoprolol 50 mg twice a day, and VESIcare 10 mg daily for overactive bladder. Continue monitoring blood sugar a.c. and h.s. Continue 1800-calorie diabetic diet. Continue heparin 5000 units subcutaneously twice a day for DVT prophylaxis. Continue Zocor 40 mg daily, Requip 2 mg 3 times a day, Protonix 40 mg daily, Tessalon 100 mg q.6 hours, aspirin 81 mg daily, Aldactone 25 mg daily, gabapentin 300 mg q.6 hours. Continue insulin human regular 65 units 3 times a day. Continue treatment. Job#: [id number] PKU
[2018-07-01] MEDS: BENZONATATE 100 MG CAP PO PRN (19:45)
[2018-07-01] MEDS: LEVOFLOXACIN 500MG/D5W 100ML 100 ML IV SCH (21:40)
[2018-07-01] MEDS: SOLIFENACIN SUCCINATE 5 MG TAB PO SCH (21:41)
[2018-07-01] MEDS: SIMVASTATIN 40 MG TAB PO SCH (21:41)
[2018-07-02] VITALS (7 sets, daily range): BP systolic 104–143; BP diastolic 49–68
[2018-07-02] MEDS: ALBUTEROL/IPRATROPIUM 3 ML NEB NEB SCH ×5 (03:15→20:10)
[2018-07-02] MEDS: GABAPENTIN 300 MG CAP PO SCH ×4 (05:10→23:08)
[2018-07-02 05:23] LABS: ANION GAP 14.3 mmol/L (8-16); CALCIUM 8.9 mg/dL (8.4-10.2); CREATININE, SERUM 2.14 mg/dL (0.57-1.11); POTASSIUM 4.3 mmol/L (3.5-5.1)
[2018-07-02] MEDS: LISINOPRIL 10 MG TAB PO SCH (08:27)
[2018-07-02] MEDS: METOPROLOL TARTRATE 50 MG TAB PO SCH ×2 (08:27→17:16)
[2018-07-02] MEDS: FENOFIBRATE 145 MG TAB PO SCH (08:27)
[2018-07-02] MEDS: SILDENAFIL CITRATE 20 MG TAB PO SCH ×3 (08:27→20:26)
[2018-07-02] MEDS: FUROSEMIDE INJ 10 MG/ML 4 ML VIAL IV SCH ×2 (08:27→17:16)
[2018-07-02] MEDS: ASPIRIN 81 MG CHEW TAB PO SCH (08:27)
[2018-07-02] MEDS: SERTRALINE HCL 100 MG TAB PO SCH (08:28)
[2018-07-02] MEDS: ROPINIROLE HCL 1 MG TAB PO SCH ×3 (08:28→20:26)
[2018-07-02] MEDS: SPIRONOLACTONE 25 MG TAB PO SCH (08:28)
[2018-07-02] MEDS: PANTOPRAZOLE SOD 40 MG TABEC PO SCH (08:29)
[2018-07-02] MEDS: HEPARIN SOD (PORCINE) 5,000 UNIT/ML VIAL SC SCH ×2 (08:31→21:39)
[2018-07-02] MEDS: INSULIN HUMAN REGULAR SQ SCH ×3 (08:31→17:17)
[2018-07-02] MEDS: INSULIN LISPRO 100 UNIT/1 ML 3ML VIAL SQ SCH ×4 (08:33→21:40)
--- NOTE | 2018-07-02 09:07 | Progress Note ---
DATE: July 02, 2018 SUBJECTIVE: Ms. Painter is a 62-year-old female with history of diabetes, chronic kidney disease, peripheral neuropathy, obesity, sleep apnea, restless legs syndrome, COPD, and diabetes. She came to the emergency room complaining of shortness of breath and cough. She was started on IV antibiotics and IV Lasix. She was seen by cheese tester and agricultural real estate agent. She is doing a little better. Now she is complaining of having trouble urinating. PHYSICAL EXAMINATION GENERAL: Today, she is awake and alert. VITAL SIGNS: Temperature is 97.2, blood pressure 109/53. HEART: Regular rate. LUNGS: Decreased breath sounds bilaterally. ABDOMEN: Distended and soft. BLOOD WORK: Potassium 4.3, creatinine 2.14, glucose 292. White count 6.29, hemoglobin 11.1, hematocrit 37.1. V/Q scan done on the shows very low probability for PE and mildly enlarged heart. Chest x-ray repeated yesterday shows central pulmonary venous congestion, no edema. ASSESSMENT AND PLAN 1. Psbqq-ka-bmnrfqd diastolic congestive heart failure. 2. Chronic obstructive pulmonary disease exacerbation. 3. Pulmonary hypertension. 4. Diabetes with chronic kidney disease. 5. Chronic kidney disease, stage 3. 6. Diabetes, type 2, with neuropathy. 7. Peripheral neuropathy. 8. Hypertension. 9. Restless legs syndrome. 10. Depression. 11. Sleep apnea. 12. Obesity. The plan at the present time is to continue ADA diet, sliding scale with insulin, continue neb treatments, IV antibiotics. Continue VESIcare, statins, aspirin. The patient is also complaining of having trouble urinating, so we are going to get a urology consult with Dr. Tellez because she states for the last 2 weeks it takes her 20 minutes to urinate. Continue present treatment. All of this was discussed with the patient. All questions were answered to satisfaction. Job#: [id number]
--- NOTE | 2018-07-02 12:38 | Progress Note ---
DATE: July 02, 2018 CARDIOLOGY PROGRESS NOTE SUBJECTIVE: Patient feeling well. Denies any chest pain. Mild cough. OBJECTIVE VITAL SIGNS: Temperature 97.2, heart rate 79, respirations 16, blood pressure 109/53, oxygen saturation 98% on 2 liters nasal cannula. GENERAL: Well-appearing, obese woman, lying comfortably in bed, in no apparent distress. CARDIOVASCULAR: Regular rate and rhythm. LUNGS: Diminished breath sounds at bilateral bases. ABDOMEN: Soft, nontender, nondistended. EXTREMITIES: Trace edema. CARDIOVASCULAR MEDICATIONS: Reviewed. LABORATORY DATA: Reviewed. Glucose 333. IMPRESSION 1. Kkmen-cq-hazdawc diastolic heart failure. 2. Chronic obstructive pulmonary disease exacerbation. 3. Hypertension. 4. Hyperlipidemia. 5. Diabetes mellitus. 6. Obesity. RECOMMENDATIONS: Continue current cardiovascular medications. Can transition to Lasix p.o. Treatment of her infection and COPD per primary team. Job#: [id number]
[2018-07-02] MEDS: SOLIFENACIN SUCCINATE 5 MG TAB PO SCH (20:26)
[2018-07-02] MEDS: SIMVASTATIN 40 MG TAB PO SCH (20:26)
[2018-07-02] MEDS: LEVOFLOXACIN 500MG/D5W 100ML 100 ML IV SCH (20:26)
[2018-07-02] MEDS: BENZONATATE 100 MG CAP PO PRN (20:38)
--- NOTE | 2018-07-02 22:25 | Consultation ---
DATE OF CONSULTATION: July 02, 2018 UROLOGY CONSULTATION REASON FOR CONSULTATION: Difficulty urinating. HISTORY OF PRESENT ILLNESS: Xochitl Painter is a 63-year-old woman who has never seen a urologist. She denies hematuria, dysuria, and urolithiasis. The patient is admitted with congestive heart failure and described difficulty with urination. Urological consultation was sought. The patient does have history of urinary tract infections. She denies incontinence. PAST MEDICAL AND SURGICAL HISTORY: 1. Diabetes mellitus. 2. Chronic kidney disease. 3. Peripheral neuropathy. 4. Sleep apnea. 5. Obesity. 6. Restless leg syndrome. 7. COPD. SOCIAL HISTORY: The patient lives at home. She used to smoke in the past, but quit. She denies current smoking, ethanol, and drug use. ALLERGIES: PENICILLIN. CURRENT MEDICATIONS: Please refer to the MAR. FAMILY HISTORY: Noncontributory to the urological problems. REVIEW OF SYSTEMS: As consistent with above history of present illness and past medical history, otherwise negative for all other systems. PHYSICAL EXAMINATION: GENERAL: Morbidly obese woman, sitting up in chair, in no apparent distress. VITAL SIGNS: She is currently afebrile. Vital signs are currently stable. ABDOMEN: Soft, nondistended, and nontender without costovertebral angle tenderness. She is obese. For the remaining physical examination and review of systems, please refer to the admission history and physical on the chart. LABORATORY STUDIES: White blood cell count is 6290, hemoglobin 11.1, platelets are 162,000. The patient's glucose is elevated. Her sodium is low at 129. Creatinine is elevated at 2.14. V/Q scan was negative. ASSESSMENT: 1. Stranguria. 2. Urinary tract infections. 3. Chronic renal insufficiency. 4. Obesity. 5. Anemia. 6. Hyponatremia. PLAN: 1. I defer the electrolyte and hematologic abnormalities to the admitting physician. 2. I asked the nurse to have the patient void and check a postvoid residual with the bladder scanner. Thank you very much for involving us in the care of your patient. We will be happy to follow her along with you as well as an outpatient. Job#: [id number] cc:RUSSELL OLIVO MD
[2018-07-03] VITALS: BP 97/48
[2018-07-03] MEDS: ALBUTEROL/IPRATROPIUM 3 ML NEB NEB SCH ×3 (03:15→11:20)
[2018-07-03 04:00] VITALS: BP 116/58
[2018-07-03] MEDS: GABAPENTIN 300 MG CAP PO SCH ×2 (05:06→12:05)
[2018-07-03 08:05] VITALS: BP 116/56
[2018-07-03] MEDS: FUROSEMIDE INJ 10 MG/ML 4 ML VIAL IV SCH (08:06)
[2018-07-03] MEDS: SILDENAFIL CITRATE 20 MG TAB PO SCH (08:06)
[2018-07-03] MEDS: HEPARIN SOD (PORCINE) 5,000 UNIT/ML VIAL SC SCH (08:07)
[2018-07-03] MEDS: INSULIN HUMAN REGULAR SQ SCH ×2 (08:07→12:05)
[2018-07-03] MEDS: INSULIN LISPRO 100 UNIT/1 ML 3ML VIAL SQ SCH ×2 (08:08→12:06)
[2018-07-03] MEDS: FENOFIBRATE 145 MG TAB PO SCH (08:08)
[2018-07-03] MEDS: SERTRALINE HCL 100 MG TAB PO SCH (08:08)
[2018-07-03] MEDS: ROPINIROLE HCL 1 MG TAB PO SCH (08:08)
[2018-07-03] MEDS: SPIRONOLACTONE 25 MG TAB PO SCH (08:08)
[2018-07-03] MEDS: ASPIRIN 81 MG CHEW TAB PO SCH (08:08)
[2018-07-03] MEDS: PANTOPRAZOLE SOD 40 MG TABEC PO SCH (08:08)
[2018-07-03 08:47] VITALS: BP 116/56
[2018-07-03] MEDS: LISINOPRIL 10 MG TAB PO SCH (08:52)
[2018-07-03] MEDS: METOPROLOL TARTRATE 50 MG TAB PO SCH (08:52)
[2018-07-03 09:03] LABS: ALBUMIN 3.4 g/dL (3.5-5.0); ALBUMIN/GLOBULIN RATIO 0.9 (0.8-2.0); ANION GAP 17.6 mmol/L (8-16); CALCIUM 9.1 mg/dL (8.4-10.2); CREATININE, SERUM 1.72 mg/dL (0.57-1.11); POTASSIUM 4.6 mmol/L (3.5-5.1)
--- NOTE | 2018-07-03 10:14 | Discharge Summary ---
Ms. Painter is a 62-year-old female with a history of diabetes, chronic kidney disease, peripheral neuropathy, sleep apnea, obesity, restless leg syndrome, COPD, and diabetes, came to the emergency room complaining of shortness of breath. She had been seen by brown sourer and panama hat blocker. Had some trouble urinating. Dr. Tellez also saw her. They believe that she has pulmonary hypertension. She was started on sildenafil. The plan is to discharge her home and have her follow up as an outpatient. PHYSICAL EXAMINATION GENERAL: Today, she is awake and alert. She is feeling better. VITAL SIGNS: Temperature is 98.3, blood pressure 116/56. HEART: Regular rate. LUNGS: Clear to auscultation. ABDOMEN: Soft. BLOOD WORK: Potassium 4.6, creatinine is 1.72, glucose is 218. White count 6.29, hemoglobin 11.1, hematocrit 37.1. The V/Q scan was negative for PE. It showed a mildly enlarged heart. The chest x-ray shows some pulmonary venous congestion. DISCHARGE DIAGNOSES 1. Ektwq-nt-opucsag diastolic congestive heart failure. 2. Chronic obstructive pulmonary disease exacerbation. 3. Pulmonary hypertension. 4. Diabetes with chronic kidney disease. 5. Chronic kidney disease, stage 3. 6. Diabetes, type 2 with neuropathy. 7. Peripheral neuropathy. 8. Hypertension. 9. Restless leg syndrome. 10. Depression. 11. Obesity. 12. Sleep apnea. PLAN: Is to discharge her home. Continue ADA diet. Continue her insulin for diabetes. Continue all statins and fenofibrate. Continue sertraline for depression. We are going to add sildenafil citrate 20 mg 3 times a day for pulmonary hypertension. We are going to continue to monitor. She needs followup with me in 1 week and with the consultants as directed by them. She is to call me or come back to the emergency room if any recurrent problem. The patient understands and agreed. All questions were answered to satisfaction. Job#: [id number] GOLDIE
[2018-07-03 12:40] VITALS: BP 127/69
[2018-07-03] MEDS ORDERED: REVATIO20 MG PO (13:41)
[2018-07-03] MEDS ORDERED: TESSALON PERLE100 MG PO (13:41)
[2018-07-03] MEDS ORDERED: LASIX40 MG PO (13:42)
[2018-07-03] MEDS ORDERED: INSULIN HUMAN REGULAR SQ SCH (17:00)
[2018-07-03] MEDS ORDERED: FUROSEMIDE 40 MG TAB PO SCH (18:00)
== END 2018-07-03 14:06 | disposition home or self-care (01) | DRG 291 ==
LOC: ER 03:06 → ERHOLD 07:14 → IMCU 13:44 → OBSVTOIN 07-01 09:28 → MED/SURG 07-01 16:52
PROVIDERS: ADMIT Internal Medicine; ATTEND Internal Medicine
DX: I13.0 Hypertensive heart and chronic kidney disease with heart failure and stage 1 through stage 4 chronic kidney disease, or unspecified chronic kidney disease (principal); I50.23 Acute on chronic systolic (congestive) heart failure; J44.1 Chronic obstructive pulmonary disease with (acute) exacerbation; E87.1 Hypo-osmolality and hyponatremia; N17.9 Acute kidney failure, unspecified; Z68.44 Body mass index [BMI] 60.0-69.9, adult; E11.22 Type 2 diabetes mellitus with diabetic chronic kidney disease; N18.3 Chronic kidney disease, stage 3 (moderate); Z79.4 Long term (current) use of insulin; E11.42 Type 2 diabetes mellitus with diabetic polyneuropathy; F32.9 Major depressive disorder, single episode, unspecified; G25.81 Restless legs syndrome; G47.33 Obstructive sleep apnea (adult) (pediatric); E66.01 Morbid (severe) obesity due to excess calories; R30.0 Dysuria; N20.9 Urinary calculus, unspecified; E11.65 Type 2 diabetes mellitus with hyperglycemia; I25.10 Atherosclerotic heart disease of native coronary artery without angina pectoris; I27.20 Pulmonary hypertension, unspecified; N32.81 Overactive bladder
CPT/HCPCS: 36415; 71045; 71046; 78582; 80048; 80053; 82550; 82553; 82948; 83036; 83880; 84484; 85025; 90732; 93005; 93306; 94640; 94644; 96372; 99284; A9540; A9558; G0378; J1644; J1940; J1956; J7050

== ENCOUNTER 2018-07-11 10:03 | Emergency (ER) | payer OTHER ==
[~2018-07-11] VITALS: Ht 160 cm; Wt 108.9 kg
[~2018-07-11 10:03] MED LIST changes: +HUMULIN R500 UNIT/1 SC; +LASIX40 MG PO; +REVATIO20 MG PO; +SERTRALINE HCL100 MG PO; +SPIRONOLACTONE25 MG PO; +TESSALON PERLE100 MG PO
[2018-07-11] MEDS ORDERED: METOPROLOL TARTRATE 25 MG TAB PO NR (11:15)
[2018-07-11 11:44] LABS: BASOPHILS # (AUTO) 0.1 (0.0-0.1); EOSINOPHILS # (AUTO) 0.2 (0.0-0.4); EOSINOPHILS % 2.7 % (0.0-6.0); HEMATOCRIT 38.1 % (34.2-44.1); HEMOGLOBIN 11.4 g/dL (12.0-16.0); LYMPHOCYTES # (AUTO) 0.7 (1.0-3.2); LYMPHOCYTES % 10.3 % (18.0-39.1); MEAN CORPUSCULAR HGB CONC 29.9 g/dL (31-35); MONOCYTES # (AUTO) 0.4 (0.2-0.8); MONOCYTES % 5.9 % (4.4-11.3); NEUTROPHILS # (AUTO) 5.2 (2.1-6.9); NEUTROPHILS % 76.3 % (38.7-80.0); PLATELET COUNT 204 x10e3/uL (140-360); RED BLOOD COUNT 4.38 x10e6/uL (3.6-5.1)
--- NOTE | 2018-07-11 11:57 | Diagnostic Imaging Report ---
CT CERVICAL SPINE WO HISTORY: Status post fall COMPARISON: Cervical spine CT 08/24/2017 TECHNIQUE: CT of the cervical spine without contrast. Sagittal and coronal reformations were created. One or more of the following dose reduction techniques were used: Automated exposure control, adjustment of the mA and/or kV according to patient size, and/or utilization of iterative reconstruction technique. FINDINGS: Mild bone demineralization and streak artifacts limit evaluation. Cervical lordosis is straightened. There is no scoliosis or subluxation. No definite acute fracture or compression deformity is seen. The craniocervical junction is intact. No gross spinal canal masses are seen. The paravertebral and paraspinal soft tissues are unremarkable. There are minimal spondylotic changes. 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 Mild mosaic attenuation at the right lung apex is partially visualized. The thyroid gland is mildly enlarged and mildly heterogeneous. Mild carotid bulb and siphon calcifications are present. IMPRESSION: 1. No acute osseous abnormalities. 2. Mildly enlarged, mildly heterogeneous thyroid gland can be further evaluated with nonemergent thyroid ultrasound. Signed by: Dr. Andrei Lutz M.D. on 07/11/2018 11:54 AM
[2018-07-11 11:58] LABS: INR 0.95; PROTHROMBIN TIME 13.5 seconds (11.9-14.5)
[2018-07-11 12:03] LABS: PARTIAL THROMBOPLASTIN TIME 20.8 seconds (23.8-35.5)
[2018-07-11 12:08] LABS: ALANINE AMINOTRANSFERASE 18 IU/L (0-55); ALBUMIN 3.6 g/dL (3.5-5.0); ALBUMIN/GLOBULIN RATIO 1.1 (0.8-2.0); ALKALINE PHOSPHATASE 55 IU/L (40-150); ANION GAP 13.5 mmol/L (8-16); BLOOD UREA NITROGEN 28 mg/dL (7-26); BUN/CREATININE RATIO 30 (6-25); CALCIUM 9.2 mg/dL (8.4-10.2); CARBON DIOXIDE 22 mmol/L (22-29); CHLORIDE 110 mmol/L (98-107); CREATINE KINASE 71 IU/L (29-168); CREATININE, SERUM 0.92 mg/dL (0.57-1.11); EST GLOMERULAR FILTRATION RATE > 60 ML/MIN (60-); GLUCOSE 62 mg/dL (74-118); POTASSIUM 4.5 mmol/L (3.5-5.1); SODIUM 141 mmol/L (136-145)
--- NOTE | 2018-07-11 12:35 | Diagnostic Imaging Report ---
CT BRAIN WO HISTORY: Fall COMPARISON: Head CT 08/24/2017 TECHNIQUE: Noncontrast axial scans were obtained from skull base to the vertex. Coronal and sagittal reconstructions obtained from the axial data. One or more of the following dose reduction techniques were used: Automated exposure control, adjustment of the mA and/or kV according to patient size, and/or utilization of iterative reconstruction technique. Beam hardening artifacts obscure some details. DISCUSSION: Scalp/Skull: Unremarkable. Brain sulci: Appropriate for patient's age. Ventricles: Normal in size and configuration. No hydrocephalus. Extra-axial spaces: No masses or fluid collections. Parenchyma: Mild carotid siphon and vertebral artery calcifications are present. No masses, hemorrhage, or large vascular territory acute infarct. Dural sinuses: No abnormal densities. Sellar/Suprasellar region: Partially empty sella. Skull base: Intact. Incidental findings: None. IMPRESSION: No acute intracranial abnormalities. Signed by: Dr. Andrei Lutz M.D. on 07/11/2018 12:31 PM
[2018-07-11 12:44] LABS: B-TYPE NATRIURETIC PEPTIDE2 43.1 pg/mL (0-100)
--- NOTE | 2018-07-11 12:44 | Diagnostic Imaging Report ---
CT MAXIO FAC/PARANAS WO HISTORY: Fall COMPARISON: Concurrent head CT, head CT 08/24/2017 TECHNIQUE: Axial CT images through the face were obtained without contrast. Coronal/sagittal reformations were created. One or more of the following dose reduction techniques were used: Automated exposure control, adjustment of the mA and/or kV according to patient size, and/or utilization of iterative reconstruction technique. DISCUSSION: There are minimally displaced fractures of the bilateral upper nasal bones and anterior nasal spine (anterior maxilla). There is associated mild local soft tissue swelling/edema. No additional acute fracture is seen. No destructive osseous lesions are seen. The orbits are intact. Intraorbital contents are grossly unremarkable. The paranasal sinuses are clear. Small bilateral palatine tonsilloliths are present. Mild bilateral carotid bulb calcifications are present. Partially visualized hyperdense nodule in the right visceral space of the mid neck may be the upper right thyroid lobe. IMPRESSION: Minimally displaced fractures of the bilateral upper nasal bones and anterior nasal spine. Signed by: Dr. Andrei Lutz M.D. on 07/11/2018 12:40 PM
[2018-07-11 14:41] VITALS: BP 139/72
== END 2018-07-11 14:40 | disposition home or self-care (01) ==
LOC: ER 10:03
DX: S02.2XXA Fracture of nasal bones, initial encounter for closed fracture (principal); S00.33XA Contusion of nose, initial encounter; W01.0XXA Fall on same level from slipping, tripping and stumbling without subsequent striking against object, initial encounter; Y92.002 Bathroom of unspecified non-institutional (private) residence as the place of occurrence of the external cause; I10 Essential (primary) hypertension; E11.9 Type 2 diabetes mellitus without complications; J44.9 Chronic obstructive pulmonary disease, unspecified; I50.9 Heart failure, unspecified; G47.30 Sleep apnea, unspecified
CPT/HCPCS: 36415; 70450; 70486; 72125; 80053; 82550; 82553; 82948; 83605; 83880; 84484; 85025; 85610; 85730; 99284

== ENCOUNTER 2018-07-30 16:40 | Emergency (ER) | payer OTHER ==
[~2018-07-30] VITALS: Ht 160 cm; Wt 108.9 kg
--- NOTE | 2018-07-30 20:53 | Diagnostic Imaging Report ---
FOREARM RIGHT 2 VIEW - 3 views HISTORY: Pain COMPARISON: None available. FINDINGS: Bones: No acute displaced fracture. Osseous alignment is within normal limits. Joints: The joint spaces are well-maintained. Soft tissues: The soft tissues appear unremarkable. IMPRESSION: No acute osseous abnormality. Signed by: Dr. Chai Tran M.D. on 07/30/2018 8:49 PM
== END 2018-07-31 01:45 | disposition home or self-care (01) ==
LOC: ER 16:40
DX: S50.11XA Contusion of right forearm, initial encounter (principal); W18.39XA Other fall on same level, initial encounter; Y92.008 Other place in unspecified non-institutional (private) residence as the place of occurrence of the external cause
CPT/HCPCS: 99283

== ENCOUNTER 2019-01-10 15:21 | Emergency (ER) | payer OTHER ==
[~2019-01-10] VITALS: Ht 160 cm; Wt 108.9 kg
[2019-01-10 16:15] LABS: BASOPHILS # (AUTO) 0.1 (0.0-0.1); EOSINOPHILS # (AUTO) 0.2 (0.0-0.4); EOSINOPHILS % 2.7 % (0.0-6.0); HEMATOCRIT 42.1 % (34.2-44.1); LYMPHOCYTES # (AUTO) 1.4 (1.0-3.2); MEAN CORPUSCULAR HGB CONC 30.9 g/dL (31-35); MEAN CORPUSCULAR VOLUME 81.1 fL (81-99); MONOCYTES # (AUTO) 0.3 (0.2-0.8); MONOCYTES % 5.1 % (4.4-11.3); NEUTROPHILS # (AUTO) 3.9 (2.1-6.9); NEUTROPHILS % 66.5 % (38.7-80.0); PLATELET COUNT 151 x10e3/uL (140-360); RED BLOOD COUNT 5.19 x10e6/uL (3.6-5.1)
[2019-01-10 16:30] LABS: ALBUMIN 3.5 g/dL (3.5-5.0); ANION GAP 16.9 mmol/L (8-16); CALCIUM 9.7 mg/dL (8.4-10.2); CREATININE, SERUM 1.16 mg/dL (0.57-1.11); POTASSIUM 4.9 mmol/L (3.5-5.1)
[2019-01-10 16:37] LABS: CREATINE KINASE MB 1.6 ng/mL (0-5.0)
[2019-01-10] MEDS ORDERED: SODIUM CHLORIDE 0.9% 1000ML 1,000 ML IV SCH (16:45)
[2019-01-10 16:49] LABS: BILIRUBIN,URINE NEGATIVE (NEGATIVE); CLARITY,URINE CLEAR (CLEAR); COLOR,URINE YELLOW (YELLOW); KETONES,URINE NEGATIVE (NEGATIVE); LEUKOCYTE ESTERASE ,URINE NEGATIVE (NEGATIVE); NITRITE,URINE NEGATIVE (NEGATIVE); PROTEIN,URINE DIPSTICK NEGATIVE (NEGATIVE); URINE UROBILINOGEN 0.2 mg/dL (0.2 - 1)
[2019-01-10] MEDS ORDERED: SODIUM CHLORIDE 0.9% 1000ML 1,000 ML ONE (16:59)
[2019-01-10] MEDS ORDERED: SODIUM CHLORIDE 0.9% 500ML 500 ML IV ONE (17:00)
[2019-01-10] MEDS ORDERED: INSULIN REGULAR, HUMAN 100 UNIT/1 ML 3ML VIAL IV ONE (17:00)
[2019-01-10 17:03] LABS: BACTERIA,URINE MODERATE /HPF; EPITHELIAL CELLS,URINE MANY /LPF; WBC,URINE (MAN) 0-5 /HPF (0-5)
--- NOTE | 2019-01-10 17:53 | Diagnostic Imaging Report ---
EXAMINATION: CHEST 2 VIEWS INDICATION: Hyperglycemia ^crackles bases ^[id number] ^1724 COMPARISON: Chest x-ray 07/01/2018 FINDINGS: PA and lateral views TUBES and LINES: None. LUNGS: Low lung volumes. Mild bronchial wall thickening. Stable eventration of the right diaphragm. Pulmonary veins are prominent but stable. No consolidation or interstitial edema. PLEURA: No pleural effusion or pneumothorax. HEART AND MEDIASTINUM: The cardiomediastinal silhouette is unremarkable.. BONES AND SOFT TISSUES: The bones are diffusely demineralized. No focal osseous lesions. Soft tissues are unremarkable. UPPER ABDOMEN: No free air under the diaphragm. IMPRESSION: Stable pulmonary venous hypertension. Bronchial wall thickening suggestive of chronic bronchitis. No infiltrates. Stable eventration of the right diaphragm. Signed by: Dr. Noel Portillo MD on 01/10/2019 5:50 PM
== END 2019-01-10 19:19 | disposition home or self-care (01) ==
LOC: ER 15:21
DX: E10.65 Type 1 diabetes mellitus with hyperglycemia (principal)
CPT/HCPCS: 36415; 71046; 80053; 81001; 82550; 82553; 82948; 83880; 84484; 85025; 93005; 99284; J7030

== ENCOUNTER 2019-01-11 17:32 | Observation (INO) | payer OTHER ==
[~2019-01-11] VITALS: Ht 160 cm; Wt 110.8 kg
[2019-01-11] MEDS ORDERED: SODIUM CHLORIDE 0.9% 1000ML 1,000 ML IV STA (17:44)
[2019-01-11] MEDS ORDERED: INSULIN REGULAR, HUMAN 100 UNIT/1 ML 3ML VIAL IV STA (17:44)
[2019-01-11 18:15] LABS: BASOPHILS % 0.8 % (0.0-1.0); EOSINOPHILS # (AUTO) 0.2 (0.0-0.4); EOSINOPHILS % 3.2 % (0.0-6.0); HEMATOCRIT 38.5 % (34.2-44.1); HEMOGLOBIN 12.1 g/dL (12.0-16.0); LYMPHOCYTES # (AUTO) 1.1 (1.0-3.2); LYMPHOCYTES % 22.5 % (18.0-39.1); MEAN CORPUSCULAR HGB CONC 31.4 g/dL (31-35); MEAN CORPUSCULAR VOLUME 79.5 fL (81-99); MONOCYTES # (AUTO) 0.3 (0.2-0.8); MONOCYTES % 6.3 % (4.4-11.3); NEUTROPHILS # (AUTO) 3.3 (2.1-6.9); NEUTROPHILS % 66.4 % (38.7-80.0); PLATELET COUNT 164 x10e3/uL (140-360); RED BLOOD COUNT 4.84 x10e6/uL (3.6-5.1); RED CELL DISTRIBUTION WIDTH 14.9 % (11.7-14.4)
[2019-01-11 18:27] LABS: INR 0.91; PARTIAL THROMBOPLASTIN TIME 24.1 seconds (23.8-35.5); PROTHROMBIN TIME 12.7 seconds (11.9-14.5)
[2019-01-11 18:36] LABS: ALBUMIN 3.3 g/dL (3.5-5.0); ALBUMIN/GLOBULIN RATIO 1.1 (0.8-2.0); ANION GAP 13.5 mmol/L (8-16); CALCIUM 9.1 mg/dL (8.4-10.2); CREATININE, SERUM 1.09 mg/dL (0.57-1.11); POTASSIUM 4.5 mmol/L (3.5-5.1)
[2019-01-11 18:36] LABS: BILIRUBIN,URINE NEGATIVE (NEGATIVE); CLARITY,URINE CLEAR (CLEAR); COLOR,URINE YELLOW (YELLOW); KETONES,URINE NEGATIVE (NEGATIVE); LEUKOCYTE ESTERASE ,URINE NEGATIVE (NEGATIVE); NITRITE,URINE NEGATIVE (NEGATIVE); PROTEIN,URINE DIPSTICK NEGATIVE (NEGATIVE); URINE UROBILINOGEN 0.2 mg/dL (0.2 - 1)
--- NOTE | 2019-01-11 18:46 | Diagnostic Imaging Report ---
EXAMINATION: CHEST SINGLE (PORTABLE) COMPARISON: Chest x-ray 01/10/2019 INDICATION: Dizziness ^DIZZY DISCUSSION: Frontal view of the chest obtained at 1806 hours. HEART AND MEDIASTINUM: The heart is mildly enlarged, stable. 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 LUNGS: Pulmonary vasculature is mildly prominent. No infiltrates PLEURA: No pleural effusion or pneumothorax. BONES AND SOFT TISSUES: No focal osseous lesion. The soft tissues are normal. IMPRESSION: Stable cardiomegaly. Mild vascular congestion. No acute pulmonary process. Signed by: Dr. Noel Portillo MD on 01/11/2019 6:43 PM
[2019-01-11 18:54] LABS: BACTERIA,URINE FEW /HPF; EPITHELIAL CELLS,URINE FEW /LPF
[2019-01-11] MEDS ORDERED: ONDANSETRON HCL INJ 2MG/ML 2ML 2 MG/ML VIAL IV PRN (19:15)
[2019-01-11] MEDS ORDERED: DEXTROSE 50% SYRINGE 50 ML IV PRN (19:15)
[2019-01-11] MEDS: SODIUM CHLORIDE 0.9% 1000ML 1,000 ML IV SCH (20:40)
[2019-01-11 21:30] VITALS: BP 147/67
--- NOTE | 2019-01-11 21:30 | NUR ---
patient is a new admit that arrived via wheelchair. patient is awake and talking. patient has been assisted into the bed. patient denies pain or discomfort. bed is in the lowest position and call alonso is within reach. will continue to monitor patient.
[2019-01-11] MEDS: INSULIN LISPRO 100 UNIT/1 ML 3ML VIAL SQ SCH (22:25)
--- NOTE | 2019-01-11 23:29 | NUR ---
patient is complaining of pain in the lower legs. paged. awaiting call back.
--- NOTE | 2019-01-11 23:41 | NUR ---
covering physician returned call, received new order to start gabapentin 300mg every 6 hours. will continue to monitor patient.
[2019-01-11] MEDS: GABAPENTIN 300 MG CAP PO SCH (23:54)
[2019-01-12] VITALS (7 sets, daily range): BP systolic 132–198; BP diastolic 65–90
[2019-01-12] MEDS: SODIUM CHLORIDE 0.9% 1000ML 1,000 ML IV SCH (04:16)
[2019-01-12 05:26] LABS: BASOPHILS % 1.1 % (0.0-1.0); EOSINOPHILS # (AUTO) 0.2 (0.0-0.4); EOSINOPHILS % 4.9 % (0.0-6.0); HEMATOCRIT 37.4 % (34.2-44.1); HEMOGLOBIN 11.7 g/dL (12.0-16.0); LYMPHOCYTES # (AUTO) 0.9 (1.0-3.2); LYMPHOCYTES % 24.5 % (18.0-39.1); MEAN CORPUSCULAR HEMOGLOBIN 24.9 pg (28-32); MEAN CORPUSCULAR HGB CONC 31.3 g/dL (31-35); MEAN CORPUSCULAR VOLUME 79.7 fL (81-99); MONOCYTES # (AUTO) 0.3 (0.2-0.8); MONOCYTES % 7.3 % (4.4-11.3); NEUTROPHILS # (AUTO) 2.3 (2.1-6.9); NEUTROPHILS % 61.1 % (38.7-80.0); PLATELET COUNT 140 x10e3/uL (140-360); RED BLOOD COUNT 4.69 x10e6/uL (3.6-5.1); RED CELL DISTRIBUTION WIDTH 14.7 % (11.7-14.4)
[2019-01-12] MEDS: GABAPENTIN 300 MG CAP PO SCH ×3 (05:27→18:00)
[2019-01-12 05:49] LABS: ALANINE AMINOTRANSFERASE 15 IU/L (0-55); ALBUMIN 3.1 g/dL (3.5-5.0); ALBUMIN/GLOBULIN RATIO 1.2 (0.8-2.0); ALKALINE PHOSPHATASE 71 IU/L (40-150); ANION GAP 10.8 mmol/L (8-16); BLOOD UREA NITROGEN 19 mg/dL (7-26); BUN/CREATININE RATIO 24 (6-25); CALCIUM 8.2 mg/dL (8.4-10.2); CARBON DIOXIDE 24 mmol/L (22-29); CHLORIDE 108 mmol/L (98-107); EST GLOMERULAR FILTRATION RATE > 60 ML/MIN (60-); GLUCOSE 230 mg/dL (74-118); POTASSIUM 3.8 mmol/L (3.5-5.1); SODIUM 139 mmol/L (136-145)
--- NOTE | 2019-01-12 06:50 | NUR ---
Report given to day nurse. patient is resting comfortably in bed. bed is in lowest position and call alonso is within reach.
[2019-01-12] MEDS: INSULIN LISPRO 100 UNIT/1 ML 3ML VIAL SQ SCH ×4 (07:52→21:59)
--- NOTE | 2019-01-12 11:56 | NUR ---
Notified BP 190/[address] Cassidy, new order recvd to give her home med metoprolol 50mg to continue, patient not in any distress
[2019-01-12] MEDS ORDERED: ALBUTEROL SULFATE HFA 8GM INHALATION AEROSOL INH PRN (12:45)
[2019-01-12] MEDS: METOPROLOL TARTRATE 50 MG TAB PO SCH ×2 (12:59→16:46)
--- NOTE | 2019-01-12 13:48 | History and Physical ---
CHIEF COMPLAINT: "I feel weak." HISTORY OF PRESENT ILLNESS: This is a 63-year-old white woman, who presents to [facility] Emergency Room with generalized weakness and complaints of elevated sugar readings for last month. The patient states 3 months ago, she was taken off regular insulin that she was using 75 units 3 times a day with meals. The patient states she was prescribed Lantus and Humalog insulin by her primary care physician namely Dr. Russo, but this was not helpful. The patient states the past 3-4 days, her glucose readings have been over 500 mg/dL. The patient denies any cough or chest congestion. The patient denies any UTI type symptoms. In the emergency room, the patient had chest x-ray done, which did not reveal any acute intrathoracic abnormality, but did reveal mild cardiomegaly. The patient also had a urinalysis in the emergency room, which was unremarkable, except reveal 2+ glucose. The patient's BUN and creatinine were slightly elevated with a value of 27 and 1.09 respectively. On admission, glucose level was 496 mg/dL. The patient's complete blood count was unremarkable. The patient was admitted for further evaluation. REVIEW OF SYSTEMS: GENERAL: Weight has been stable. Denies any fever, chills, but she has been very weak for the past few days. HEENT: No headaches. No visual changes. CARDIOVASCULAR: No chest pain or shortness of breath. GI: No nausea, vomiting, diarrhea, or constipation. : Complains of polyuria, but denies any dysuria. NEUROMUSCULAR: Complains of numbness in her feet at times from her neuropathy. ALLERGIES: PENICILLIN. PAST SURGICAL HISTORY: 1. Appendectomy. 2. Foot surgery. FAMILY HISTORY: Multiple family members have diabetes mellitus. SOCIAL HISTORY: This woman is single, lives alone. No history of tobacco or alcohol use. The patient states that she smoked tobacco many years ago. PAST MEDICAL HISTORY: 1. Type 2 diabetes mellitus. 2. Extreme obesity. 3. Hypertensive heart disease. 4. Hyperlipidemia. 5. Overactive bladder. 6. Restless legs syndrome. 7. Depression. 8. Pulmonary hypertension. 9. Chronic diastolic congestive heart failure. 10. Diabetic peripheral neuropathy. 11. GERD. MEDICATIONS: 1. Albuterol inhaler 2 puffs q.i.d. 2. Aspirin 81 mg daily. 3. Tessalon Perles 100 mg b.i.d. 4. Fenofibrate 145 mg daily. 5. Furosemide 40 mg b.i.d. 6. Gabapentin 300 mg q.6 hours. 7. Glimepiride 4 mg b.i.d. 8. Regular insulin 75 units subcutaneous t.i.d. with meals (the patient has been off this medication for the last 3 months). 9. Metoprolol tartrate 50 mg b.i.d. 10. Omeprazole 40 mg daily. 11. Ropinirole 2 mg t.i.d. 12. Sertraline 100 mg daily. 13. Sildenafil citrate 20 mg t.i.d. 14. Simvastatin 40 mg at bedtime. 15. VESIcare 10 mg at bedtime. 16. Spironolactone 25 mg daily. PHYSICAL EXAMINATION: GENERAL: She is awake, alert, and fluent, and she does look great. She does not appear to be in any obvious distress. VITAL SIGNS: Height 5 feet 3 inches, weight is 245 pounds, BMI 43. Blood pressure is 198/90, pulse 62, respiratory rate is 22, oxygen saturation 98%, temperature 97.6. INTEGUMENT: Skin is warm and dry. No pallor, jaundice, diaphoresis. HEENT: Anicteric sclerae with dry mucous membranes. The patient has poor dentition. NECK: Supple. CARDIOVASCULAR: Distant heart sounds. Regular rate and rhythm. LUNGS: No rales, no rhonchi. ABDOMEN: Obese, benign. EXTREMITIES: No edema or deformity. NEUROLOGIC: Intact. DIAGNOSES: 1. Type 2 diabetes with neuropathy, uncontrolled. 2. Acute renal insufficiency, resolving. 3. Hypertensive heart disease. 4. Extreme obesity, BMI 43, complicating underlying hypertensive heart disease and type 2 diabetes mellitus. 5. Chronic diastolic congestive heart failure. PLAN: 1. Gentle intravenous fluids. 2. Follow renal function and electrolytes. 3. Blood glucose control with regular insulin 75 units 3 times a day with meals. 4. We will stop glimepiride, since she could potentially have severe hypoglycemia if coupled with high dose insulin. 5. Blood pressure control. 6. Check hemoglobin A1c. I spent 35 minutes in the care of this patient. MD NEERU Ceron/ELVIN /[id number] MTDD
[2019-01-12] MEDS: INSULIN REGULAR, HUMAN 100 UNIT/1 ML 3ML VIAL SQ SCH (16:45)
[2019-01-12] MEDS: FUROSEMIDE 40 MG TAB PO SCH (16:46)
[2019-01-12] MEDS: ROPINIROLE HCL 1 MG TAB PO SCH ×2 (16:51→21:58)
[2019-01-12] MEDS: SILDENAFIL CITRATE 20 MG TAB PO SCH ×2 (16:51→21:58)
[2019-01-12] MEDS ORDERED: METOPROLOL TARTRATE 50 MG TAB PO SCH (17:00)
[2019-01-12] MEDS ORDERED: GABAPENTIN 300 MG CAP PO SCH (18:00)
--- NOTE | 2019-01-12 18:32 | NUR ---
patient resting in bed, Alert with no distress, denies any pain or SOB. Call light in reach
--- NOTE | 2019-01-12 19:00 | NUR ---
RECEIVED REPORT FROM DAY NURSE. PATIENT IS RESTING COMFORTABLY IN BED. BED IS IN LOWEST POSITION AND CALL BEL IS WITHIN REACH. WILL CONTINUE TO MONITOR PATIENT.
[2019-01-12] MEDS ORDERED: SIMVASTATIN 40 MG TAB PO SCH (21:00)
[2019-01-12] MEDS ORDERED: SOLIFENACIN SUCCINATE 5 MG TAB PO SCH (21:00)
[2019-01-13] VITALS: BP 130/58
[2019-01-13] MEDS: GABAPENTIN 300 MG CAP PO SCH ×3 (00:44→12:23)
[2019-01-13 04:00] VITALS: BP 119/56
[2019-01-13 05:13] LABS: BASOPHILS # (AUTO) 0.1 (0.0-0.1); BASOPHILS % 1.2 % (0.0-1.0); EOSINOPHILS # (AUTO) 0.2 (0.0-0.4); EOSINOPHILS % 4.1 % (0.0-6.0); HEMATOCRIT 36.5 % (34.2-44.1); HEMOGLOBIN 11.2 g/dL (12.0-16.0); LYMPHOCYTES % 20.4 % (18.0-39.1); MEAN CORPUSCULAR HEMOGLOBIN 24.8 pg (28-32); MEAN CORPUSCULAR HGB CONC 30.7 g/dL (31-35); MEAN CORPUSCULAR VOLUME 80.8 fL (81-99); MONOCYTES # (AUTO) 0.3 (0.2-0.8); MONOCYTES % 5.9 % (4.4-11.3); NEUTROPHILS # (AUTO) 3.5 (2.1-6.9); NEUTROPHILS % 67.6 % (38.7-80.0); PLATELET COUNT 149 x10e3/uL (140-360); RED BLOOD COUNT 4.52 x10e6/uL (3.6-5.1); RED CELL DISTRIBUTION WIDTH 14.9 % (11.7-14.4)
[2019-01-13 05:33] LABS: ALANINE AMINOTRANSFERASE 16 IU/L (0-55); ALBUMIN/GLOBULIN RATIO 1.2 (0.8-2.0); ALKALINE PHOSPHATASE 69 IU/L (40-150); ANION GAP 11.8 mmol/L (8-16); BLOOD UREA NITROGEN 16 mg/dL (7-26); BUN/CREATININE RATIO 21 (6-25); CALCIUM 8.5 mg/dL (8.4-10.2); CARBON DIOXIDE 25 mmol/L (22-29); CHLORIDE 105 mmol/L (98-107); CREATININE, SERUM 0.78 mg/dL (0.57-1.11); EST GLOMERULAR FILTRATION RATE > 60 ML/MIN (60-); GLUCOSE 151 mg/dL (74-118); POTASSIUM 3.8 mmol/L (3.5-5.1); SODIUM 138 mmol/L (136-145)
--- NOTE | 2019-01-13 07:14 | NUR ---
report given to day nurse. patient is resting comfortably in bed. bed is in lowest position and call alonso is within reach.
[2019-01-13 07:24] VITALS: BP 127/61
[2019-01-13] MEDS ORDERED: PANTOPRAZOLE SOD 40 MG TABEC PO SCH (07:30)
[2019-01-13] MEDS: INSULIN LISPRO 100 UNIT/1 ML 3ML VIAL SQ SCH ×2 (08:49→12:22)
[2019-01-13] MEDS: INSULIN REGULAR, HUMAN 100 UNIT/1 ML 3ML VIAL SQ SCH ×2 (08:50→12:23)
[2019-01-13] MEDS: ROPINIROLE HCL 1 MG TAB PO SCH (08:58)
[2019-01-13] MEDS ORDERED: FENOFIBRATE 145 MG TAB PO SCH (09:00)
[2019-01-13] MEDS ORDERED: ASPIRIN 81 MG CHEW TAB PO SCH (09:00)
[2019-01-13] MEDS ORDERED: SERTRALINE HCL 100 MG TAB PO SCH (09:00)
[2019-01-13] MEDS: SILDENAFIL CITRATE 20 MG TAB PO SCH (09:02)
[2019-01-13] MEDS: METOPROLOL TARTRATE 50 MG TAB PO SCH (09:02)
[2019-01-13] MEDS: FUROSEMIDE 40 MG TAB PO SCH (09:03)
[2019-01-13 09:21] VITALS: BP 126/63
[2019-01-13 11:17] VITALS: BP 136/57
[2019-01-13] MEDS ORDERED: ONDANSETRON HCL 4 MG ORAL DISINTEGRATING TAB PO PRN (14:45)
--- NOTE | 2019-01-13 15:02 | Discharge Summary ---
ADMITTING DIAGNOSES: 1. Type 2 diabetes mellitus with neuropathy, uncontrolled. 2. Acute renal insufficiency. 3. Hypertensive heart disease. 4. Extreme obesity, BMI 40, complicated underlying hypertensive heart disease and type 2 diabetes mellitus. 5. Chronic diastolic congestive heart failure. DISCHARGE DIAGNOSES: 1. Type 2 diabetes mellitus with neuropathy, controlled. 2. Acute renal insufficiency, resolved. 3. Hypertensive heart disease. 4. Extreme obesity, BMI 40, complicated underlying hypertensive heart disease and type 2 diabetes mellitus. 5. Chronic diastolic congestive heart failure. HOSPITAL COURSE: This is a 63-year-old white woman, who was initially admitted to [facility] with a diagnosis of uncontrolled insulin- dependent type 2 diabetes mellitus with neuropathy. She was also diagnosed with acute renal insufficiency on admission. During this hospitalization, the patient's renal function improved with intravenous fluids. On admission, BUN and creatinine were 27 and 1.09 respectively. On the day of discharge, BUN and creatinine were 16 and 0.78 respectively. The patient achieved better glucose control once she was started on regular insulin namely Humulin R 50 units subcutaneous t.i.d. with meals. The patient's glimepiride was actually discontinued because she had episode of hypoglycemia. Her hospitalization was unremarkable. CONDITION ON DISCHARGE: Stable. DISCHARGE MEDICATIONS: 1. Humulin R insulin U-500 50 units subcutaneous t.i.d. with meals. 2. Gabapentin 300 mg q.6h. p.r.n. neuropathic pain. 3. Sertraline 100 mg daily. 4. Furosemide 40 mg b.i.d. 5. Aspirin 81 mg daily. 6. Sildenafil citrate 20 mg t.i.d. for the patient's pulmonary hypertension. 7. Fenofibrate 145 mg daily. 8. Metoprolol tartrate 50 mg b.i.d. 9. Pantoprazole 40 mg daily. 10. Ropinirole 2 mg t.i.d. 11. Solifenacin 10 mg at bedtime. 12. Simvastatin 40 mg at bedtime. 13. Albuterol inhaler 2 puffs q.i.d. as needed for shortness of breath and wheezing. 14. 1 mL insulin syringes with 32 gauge needles were prescribed to the patient, 90 in number. FOLLOWUP INSTRUCTIONS: The patient instructed to follow up with her primary care physician namely Dr. Lucille Huerta within 1 week. MD NEERU Ceron/ELVIN /[id number] cc: Lucille Huerta MD MTDD
== END 2019-01-13 15:36 | disposition home or self-care (01) ==
LOC: ER 17:39 → ERHOLD 19:31 → IMCU 21:41
PROVIDERS: ADMIT Internal Medicine; ATTEND Internal Medicine
DX: E11.65 Type 2 diabetes mellitus with hyperglycemia (principal); R53.1 Weakness; E66.01 Morbid (severe) obesity due to excess calories; Z68.41 Body mass index [BMI] 40.0-44.9, adult; I11.0 Hypertensive heart disease with heart failure; I50.32 Chronic diastolic (congestive) heart failure; E78.5 Hyperlipidemia, unspecified; N32.81 Overactive bladder; G25.81 Restless legs syndrome; N28.9 Disorder of kidney and ureter, unspecified; E11.42 Type 2 diabetes mellitus with diabetic polyneuropathy; Z79.4 Long term (current) use of insulin; Z79.82 Long term (current) use of aspirin; F32.9 Major depressive disorder, single episode, unspecified; I27.20 Pulmonary hypertension, unspecified; E11.649 Type 2 diabetes mellitus with hypoglycemia without coma; T38.3X5A Adverse effect of insulin and oral hypoglycemic [antidiabetic] drugs, initial encounter; Z83.3 Family history of diabetes mellitus; Z87.891 Personal history of nicotine dependence
CPT/HCPCS: 36415 ×3; 71045; 80053 ×3; 81001; 82550; 82553; 82948 ×3; 83036; 84484; 85025 ×3; 85610; 85730; 93005; 94664; 99285; G0378 ×3; J1817 ×2; J2405; J7030 ×2; J7799; S0164

== ENCOUNTER 2019-01-16 19:38 | Inpatient (IN) | payer OTHER ==
[~2019-01-16] VITALS: Ht 160 cm; Wt 106.1 kg
--- NOTE | 2019-01-16 20:44 | Diagnostic Imaging Report ---
A single frontal view of the chest. HISTORY: Shortness of breath COMPARISON: Chest radiograph January 11, 2019. DISCUSSION: Portable technique, limits sensitivity of the exam. Soft tissue attenuation partially limits sensitivity of the exam. Tubes/Lines: None Lungs and pleura: Low lung volumes result in bibasilar vascular crowding, accentuation of the pulmonary interstitial markings, central pulmonary vasculature, and the cardiac silhouette. Allowing for these limitations, the findings are as follows: Increased interstitial markings and patchy confluent central predominant opacities. Left greater than right basilar atelectasis. Blunting of the left greater than right costophrenic angles. Heart and mediastinum: The cardiac silhouette is predominant obscured. The central pulmonary vasculature is prominent. Bones and soft tissues: Appear unremarkable, given this limited exam. IMPRESSION: Findings remain compatible with volume overload resulting in central pulmonary vascular congestion, moderate pulmonary edema, small (left greater than right) pleural effusions with adjacent atelectasis. Signed by: Dr. John Mike D.O., M.M.M. on 01/16/2019 8:41 PM
[2019-01-16 21:02] LABS: BILIRUBIN,URINE NEGATIVE (NEGATIVE); CLARITY,URINE CLEAR (CLEAR); COLOR,URINE YELLOW (YELLOW); KETONES,URINE NEGATIVE (NEGATIVE); LEUKOCYTE ESTERASE ,URINE NEGATIVE (NEGATIVE); NITRITE,URINE NEGATIVE (NEGATIVE); PROTEIN,URINE DIPSTICK NEGATIVE (NEGATIVE); URINE UROBILINOGEN 0.2 mg/dL (0.2 - 1)
[2019-01-16 21:13] LABS: BACTERIA,URINE FEW /HPF; EPITHELIAL CELLS,URINE MANY /LPF
[2019-01-16 21:26] LABS: BASOPHILS % 0.5 % (0.0-1.0); EOSINOPHILS # (AUTO) 0.1 (0.0-0.4); EOSINOPHILS % 2.4 % (0.0-6.0); HEMATOCRIT 38.2 % (34.2-44.1); HEMOGLOBIN 11.9 g/dL (12.0-16.0); LYMPHOCYTES # (AUTO) 1.1 (1.0-3.2); LYMPHOCYTES % 19.2 % (18.0-39.1); MEAN CORPUSCULAR HEMOGLOBIN 24.6 pg (28-32); MEAN CORPUSCULAR HGB CONC 31.2 g/dL (31-35); MEAN CORPUSCULAR VOLUME 78.9 fL (81-99); MONOCYTES # (AUTO) 0.3 (0.2-0.8); MONOCYTES % 4.9 % (4.4-11.3); NEUTROPHILS # (AUTO) 4.3 (2.1-6.9); NEUTROPHILS % 72.5 % (38.7-80.0); PLATELET COUNT 163 x10e3/uL (140-360); RED BLOOD COUNT 4.84 x10e6/uL (3.6-5.1); RED CELL DISTRIBUTION WIDTH 14.6 % (11.7-14.4)
[2019-01-16 21:45] LABS: ALANINE AMINOTRANSFERASE 19 IU/L (0-55); ALBUMIN 3.5 g/dL (3.5-5.0); ALBUMIN/GLOBULIN RATIO 1.1 (0.8-2.0); ALKALINE PHOSPHATASE 80 IU/L (40-150); ANION GAP 15.9 mmol/L (8-16); BLOOD UREA NITROGEN 27 mg/dL (7-26); BUN/CREATININE RATIO 20 (6-25); CALCIUM 9.2 mg/dL (8.4-10.2); CARBON DIOXIDE 23 mmol/L (22-29); CHLORIDE 97 mmol/L (98-107); CREATINE KINASE 27 IU/L (29-168); CREATININE, SERUM 1.33 mg/dL (0.57-1.11); EST GLOMERULAR FILTRATION RATE 40 ML/MIN (60-); POTASSIUM 3.9 mmol/L (3.5-5.1); SODIUM 132 mmol/L (136-145)
[2019-01-16 21:47] LABS: GLUCOSE 488 mg/dL (74-118)
--- NOTE | 2019-01-16 21:47 | NUR ---
DR. HOPSON AND Marielle YOST LVN NOTIFIED AND AWARE OF CRITICAL LAB VALUE. GLUCOSE 488.
[2019-01-16] MEDS ORDERED: INSULIN REGULAR, HUMAN 100 UNIT/1 ML 3ML VIAL IV ONE (22:00)
[2019-01-16] MEDS ORDERED: FUROSEMIDE INJ 10 MG/ML 4 ML VIAL IV ONE (22:00)
[2019-01-16] MEDS ORDERED: SODIUM CHLORIDE 0.9% 500ML 500 ML IV ONE (22:00)
[2019-01-16] MEDS ORDERED: INSULIN REGULAR, HUMAN 100 UNIT/1 ML 3ML VIAL SQ ONE (22:00)
[2019-01-16] MEDS ORDERED: SODIUM CHLORIDE FLUSH 10 ML SYR INJ PRN (22:15)
[2019-01-16] MEDS ORDERED: DEXTROSE 50% SYRINGE 50 ML IV PRN (22:15)
[2019-01-16] MEDS ORDERED: POTASSIUM CHLO10 MEQ PO (22:48)
[2019-01-16] MEDS ORDERED: LOSARTAN POTASS50 MG PO (22:48)
[2019-01-16] MEDS ORDERED: GLIMEPIRIDE2 MG PO (22:48)
--- NOTE | 2019-01-16 23:00 | NUR ---
Patient arrived on OBS by 2300 from the ER for uncontrolled diabetes, CHF and hyperglycemia. The patient is alert/oriented x4, with VS WNP. The patient reported no pain. Non-skid sock on patient. Call light within reach, bed set low, wheels lock and side rails up x2. Monitor patient's blood glucose.
[2019-01-16 23:09] VITALS: BP 146/70
[2019-01-16 23:17] VITALS: BP 146/70
[2019-01-17] VITALS (8 sets, daily range): BP systolic 118–151; BP diastolic 59–64
[2019-01-17 05:58] LABS: CREATINE KINASE 24 IU/L (29-168)
[2019-01-17] MEDS: INSULIN REGULAR, HUMAN 100 UNIT/1 ML 3ML VIAL SQ SCH ×2 (07:52→11:35)
[2019-01-17] MEDS ORDERED: FUROSEMIDE INJ 10 MG/ML 4 ML VIAL IV SCH (09:00)
--- NOTE | 2019-01-17 11:43 | NUR ---
Rechecked BS [id number]
[2019-01-17] MEDS: LOSARTAN POTASSIUM 100 MG TAB PO SCH (12:05)
[2019-01-17] MEDS: PANTOPRAZOLE SOD 40 MG TABEC PO SCH (12:13)
[2019-01-17] MEDS: SPIRONOLACTONE 25 MG TAB PO SCH (12:13)
[2019-01-17] MEDS: ROPINIROLE HCL 1 MG TAB PO SCH ×3 (12:46→20:34)
[2019-01-17] MEDS: GABAPENTIN 300 MG CAP PO SCH ×2 (12:46→17:00)
--- NOTE | 2019-01-17 14:34 | Consultation ---
DATE OF CONSULTATION: 01/17/2019 Cardiac Consultation REASON FOR CONSULTATION: Diagnosis of congestive heart failure in ER based on x-ray finding. HISTORY: A 63-year-old lady with known history of hypertension, diabetes mellitus, obesity, GERD, hypercholesterolemia. The patient seen and evaluated in our office. She does have really problem with hyperglycemia and her blood sugar to be very high. She was at [facility] 2-3 months ago where she had low-risk nuclear cardiac stress test and echocardiogram showed preserved left ventricular systolic function. She does have diagnosis of diastolic CHF. Regardless, the patient came to ER complaining of dizziness, not feeling well, swimming head, and no energy. She denied having any chest pain or shortness of breath. Her BNP was very normal, in fact it is very low at 27 and repeat at 14. Her cardiac enzymes are normal. Her blood sugar was above 500. The patient given Lasix based on her chest x-ray finding of volume overload. I reviewed the chest x-ray. There are mainly atelectatic changes, possible volume overload or poor penetration. Regardless, the patient is comfortable in bed. Her main symptoms are weakness, no energy. She does have possibly sleep apnea, she snores at night. There is no orthopnea currently and no paroxysmal nocturnal dyspnea. She does have easy fatigability, swimming head and not feeling well at all. REVIEW OF SYSTEMS: GENERAL: Weight is stable with no fever, no chills. HEENT: Swimming head and weakness and blurry vision. CARDIAC: No angina. No shortness of breath. Possible sleep apnea. Currently no orthopnea and no paroxysmal nocturnal dyspnea. PULMONARY: Occasional rare cough. No hemoptysis. GI: Bloating indigestion, nausea. No hematemesis, no melena. : Polyuria, polydipsia. MUSCULOSKELETAL: Numbness, tingling, and feeling not so good. HOME MEDICATIONS: Include aspirin 81 mg a day, simvastatin 40 mg a day, metoprolol tartrate 50 mg a day, fenofibrate 145 mg a day, Lasix 40 mg twice a day, gabapentin 300 mg twice a day, ropinirole 2 mg t.i.d., Zoloft 100 mg a day, sildenafil 20 mg t.i.d., insulin R 50 units t.i.d., albuterol. PAST MEDICAL HISTORY: 1. Hypertension. 2. Diabetes mellitus. 3. Obesity. 4. Hyperlipidemia. 5. Restless legs syndrome. 6. Overactive blader. 7. Depression. 8. Diagnosis of pulmonary hypertension. 9. Chronic diastolic congestive heart failure. 10. Diabetic neuropathy. 11. GERD. 12. Appendectomy. 13. Feet surgery. SOCIAL HISTORY: She stopped smoking in the 90s. She used to smoke half pack a day. She does not drink alcohol. She is . ALLERGIES: AMLODIPINE. FAMILY HISTORY: Father at age 59 with liver cirrhosis and CVA. Mother, unknown medical history details. She lost a sister to a cancer at age 59 and she was diabetic, hypertensive. PHYSICAL EXAMINATION: VITAL SIGNS: Height of 5 feet 3 inches, weight of 234 pounds, BMI of 42. Blood pressure 130/60, heart rate of 60, respiratory rate of 18. HEENT: Pupils are reactive. NECK: No elevation of jugular venous pulsation. CHEST: Decreased air entry in bases heart. PMI 5th left intercostal space. Normal first and second heart sounds. ABDOMEN: Soft, obese. EXTREMITIES: No cyanosis, no clubbing, no edema. NEUROLOGIC: Gait is not examined, but she is able to move her extremity. Nonfocal. LABORATORY DATA: BNP is normal at 27 and 14. Cardiac enzymes are normal. BUN is elevated at 27, creatinine of 1.33, sodium of 132, potassium of 3.9. White blood cell count of 5.9, hemoglobin of 11.9, hematocrit 38%, platelet count of 163,000. IMPRESSION AND PLAN: 1. Diabetes mellitus, poorly controlled with end-organ damage. 2. Hypertension. 3. Severe peripheral neuropathy. 4. Diagnosis of pulmonary hypertension, questionable details. 5. History of chronic diastolic congestive heart failure. 6. Hyperlipidemia. 7. Restless legs syndrome. 8. Depression. 9. End-organ damage secondary to diabetes mellitus. Cardiac rogers, my recommendation, the patient currently euvolemic, I will stop her Lasix, she already had Lasix in ER. We will observe her volume status. I will leave the management for pulmonary hypertension to her PCP and Pulmonary. Cardiac rogers probably we will decrease the dose of beta-maya, we will observe on telemetry, we will check serial cardiac enzymes and we will follow her progression with you. Probably decreasing the number of her medication also will be helpful to see if this will make any difference if the patient can tolerate with throwing some of her medication. Plan discussed and explained to the patient, questions are answered. MD VIOLETA Avila/ELVIN /[id number]
[2019-01-17 14:48] LABS: CREATINE KINASE 23 IU/L (29-168)
--- NOTE | 2019-01-17 14:56 | NUR ---
Nutrition Screen Note RD Recommendation for Physician: -Rec adding cardiac to ADA diet as medically appropriate -RD provided handouts on ADA/ heart failure nutrition therapy. Plan of Care: RD following, monitoring for tolerance and adequacy, diet education Nutrition reason for involvement: Diagnosis Primary Diagnose(s): 1. Diabetes mellitus, poorly controlled with end-organ damage. 2. Hypertension. 3. Severe peripheral neuropathy. 4. Diagnosis of pulmonary hypertension, questionable details. 5. History of chronic diastolic congestive heart failure. PMH: hypertension, diabetes mellitus, obesity, GERD, hypercholesterolemia. Ht: 63in Wt: 234lb BMI: 41.5kg/m2 IBW: 115lb RD Assessment: (01/17) Chart reviewed. Labs and meds reviewed. 63yo F, who was admitted for dizziness, not feeling well and no energy. HbA1c at 11.6%. Visited pt in the room. Pt reports good appetite. No complains of nausea or vomiting. Normal BM. Pt denies any chewing or swallowing difficulty. Pt reports her diabetes being out of control because her insurance doesnt cover her medications. Pt has been trying to control her blood glucose through diet changes and weight loss. RD provided handouts on diabetic/ heart failure nutrition therapy. Will continue to monitor and follow. Current Diet: ADA diet Malnutrition Evaluation (01/17) The patient does not meet criteria for a specified degree of malnutrition at this time. Will re-evaluate at follow-up as appropriate. Diet Education Needs Assessment: Diet education indicated, pt is agreeable. Learner(s): pt Time spent: 15minutes Barriers: No barriers identified. Cultural/Language Modifications: No cultural/language modifications noted. Pt speaks Danish. Readiness: Acceptance Method: Handouts, explanation Topics: Carbohydrate food list, heart failure nutrition therapy (sodium, fluids, weight) Understanding/Compliance: Expect fair understanding/compliance from pt. Will benefit from reinforcement. All questions have been answered. Nutrition Care Level: low Signed: Muriel Cisneros, , RD, LD
[2019-01-17 15:28] LABS: FREE T4 (FREE THYROXINE) 1.05 ng/dL (0.8-1.8); THYROID STIMULATING HORMONE 0.661 uIU/mL (0.350-4.940)
--- NOTE | 2019-01-17 19:00 | NUR ---
Received bedside report from day shift RN. The patient is sitting up on the edge of the bed and not in distress. Call light within reach, wheels lock, side rails up x2.
[2019-01-17] MEDS: SIMVASTATIN 40 MG TAB PO SCH (20:34)
[2019-01-17] MEDS: INSULIN LISPRO 100 UNIT/1 ML 3ML VIAL SQ SCH (20:36)
--- NOTE | 2019-01-17 20:40 | Consultation ---
DATE OF CONSULTATION: 01/17/2019 Endocrine Consultation Thank you very much for referring this patient. HISTORY OF PRESENT ILLNESS: This is a 63-year-old white female who is known to me from her previous hospital admission. The patient is a known diabetic for almost 15- 20 years and she was taking Lantus 35 at bedtime and Humalog about 22 units three times a day. According to the patient, she cannot afford to take the insulin. She stopped taking insulin about three days back. She came to the hospital with blood sugar of 488, and anion gap was 15.9. She also complained of shortness of breath and nausea. The patient has a longstanding history of COPD, coronary artery disease, congestive cardiac failure, hypertension, and is on several medications at home including spironolactone, simvastatin, losartan 50 mg once daily, metoprolol. She also has history of depression for which she is on Zoloft. PHYSICAL EXAMINATION: GENERAL: Today, the patient is alert, awake, and little bit apprehensive. VITAL SIGNS: She is moderately overweight. Her heart rate is around 78, blood pressure 140/80 mmHg. HEENT: Essentially unremarkable. Thyroid is palpable. Clinically, she is euthyroid. CHEST: Bilateral vesicular breathing. She has bilateral bronchospasm in base throughout. CARDIOVASCULAR: First and second heart sounds. There are no third or fourth heart sounds. EXTREMITIES: The patient has evidence of diabetic sensorimotor neuropathy in both lower extremities. CLINICAL IMPRESSION: Diabetes mellitus type 2, uncontrolled with complications, noncompliance of medications. Coronary artery disease. Congestive cardiac failure. Chronic obstructive pulmonary disease. Hypertension. Obesity. PLAN: At this time is to do hemoglobin A1c, thyroid function tests, monitor her blood sugars closely and start her back on the Lantus and Humalog insulin. When she is ready to discharge, she will be able to change her to NPH and regular insulin, which is more affordable. Thank you again for referring this patient. I will be following this patient with you. MD EDDIE Casas/ELVIN /[id number] PANCHO
[2019-01-17] MEDS ORDERED: INSULIN GLARGINE 100 UNITS/ML VIAL SQ SCH (21:00)
[2019-01-18] VITALS (8 sets, daily range): BP systolic 98–133; BP diastolic 54–69
[2019-01-18] MEDS: GABAPENTIN 300 MG CAP PO SCH ×4 (01:10→17:00)
[2019-01-18 05:30] LABS: BASOPHILS # (AUTO) 0.1 (0.0-0.1); BASOPHILS % 1.1 % (0.0-1.0); EOSINOPHILS # (AUTO) 0.2 (0.0-0.4); EOSINOPHILS % 3.4 % (0.0-6.0); HEMATOCRIT 39.5 % (34.2-44.1); HEMOGLOBIN 12.4 g/dL (12.0-16.0); LYMPHOCYTES # (AUTO) 1.5 (1.0-3.2); LYMPHOCYTES % 25.8 % (18.0-39.1); MEAN CORPUSCULAR HEMOGLOBIN 24.6 pg (28-32); MEAN CORPUSCULAR HGB CONC 31.4 g/dL (31-35); MEAN CORPUSCULAR VOLUME 78.4 fL (81-99); MONOCYTES # (AUTO) 0.5 (0.2-0.8); MONOCYTES % 8.5 % (4.4-11.3); NEUTROPHILS # (AUTO) 3.4 (2.1-6.9); NEUTROPHILS % 60.5 % (38.7-80.0); PLATELET COUNT 159 x10e3/uL (140-360); RED BLOOD COUNT 5.04 x10e6/uL (3.6-5.1); RED CELL DISTRIBUTION WIDTH 14.8 % (11.7-14.4)
[2019-01-18 05:48] LABS: ALBUMIN 3.2 g/dL (3.5-5.0); ANION GAP 13.7 mmol/L (8-16); CALCIUM 9.3 mg/dL (8.4-10.2); CREATININE, SERUM 1.03 mg/dL (0.57-1.11); POTASSIUM 3.7 mmol/L (3.5-5.1)
[2019-01-18 06:44] LABS: THYROID STIMULATING HORMONE 0.428 uIU/mL (0.350-4.940)
[2019-01-18] MEDS: INSULIN LISPRO 100 UNIT/1 ML 3ML VIAL SQ SCH ×7 (08:30→20:52)
[2019-01-18] MEDS: PANTOPRAZOLE SOD 40 MG TABEC PO SCH (08:45)
[2019-01-18] MEDS: METOPROLOL TARTRATE 50 MG TAB PO SCH ×2 (08:45→17:00)
[2019-01-18] MEDS: ROPINIROLE HCL 1 MG TAB PO SCH ×4 (08:45→20:52)
[2019-01-18] MEDS: SPIRONOLACTONE 25 MG TAB PO SCH (08:45)
[2019-01-18] MEDS: SERTRALINE HCL 100 MG TAB PO SCH (08:45)
[2019-01-18] MEDS: ASPIRIN 81 MG CHEW TAB PO SCH (08:45)
[2019-01-18] MEDS: LOSARTAN POTASSIUM 100 MG TAB PO SCH (08:45)
--- NOTE | 2019-01-18 12:49 | NUR ---
SPOKE WITH DR OLIVO ABOUT CONCERN FOR MEDICATION BEING TO EXPENSIVE, SPOKE WITH PT WHOM TOLD MD THAT PRESCRIPTIONS ARE APPROXIMATELY 1000.00 A MONTH, EXPLAINED TO PT THAT SHE CAN CONTACT THE MANUFACTURE OF MEDICATION TO SEE IF CAN GET COUPONS, GAVE INFORMATION ON LOCAL RESOURCES THAT ASSIST WITH PRESCRIPTION ASSISTANCE ALSO LET HER KNOW THAT SHE NEEDS TO CONTACT HER INSURANCE COMPANY TO LET THEM KNOW ABOUT THE MEDICATION AND SEE WHAT IS IN HER FORMULARY TO LET DOCTOR KNOW WHAT IS IN HER PLAN. CONSULTING DOCTOR IS WRITING PRESCRIPTION OF A LESS EXPENSIVE INSULIN AND THE PT WILL NEED TO FOLLOW UP WITH DR OLIVO IN HER OFFICE.
[2019-01-18 15:25] LABS: CHOL/HDL RATIO 5.7 (3.0-3.6)
--- NOTE | 2019-01-18 17:26 | NUR ---
report given to Deepali for patient transfer to new unit. patient aware of change and in no distress. belongings gathered by patient and will be wheeled to unit.
--- NOTE | 2019-01-18 17:34 | NUR ---
received pt to floor aa0x3 from observation pt is in no s.s of distress call light is at bedside. instructed to call for assistance if needed
--- NOTE | 2019-01-18 19:10 | NUR ---
RECEIVED PATIENT AAOX3, RESTING IN BED. NO DISTRESS OBSERVED. NO NEEDS VOICED AT THIS TIME. BED LOCKED AND IN LOWEST POSITION, CALL LIGHT WITHIN EASY REACH.
[2019-01-18] MEDS: SIMVASTATIN 40 MG TAB PO SCH (20:52)
[2019-01-18] MEDS ORDERED: INSULIN GLARGINE 100 UNITS/ML VIAL SQ SCH (21:00)
[2019-01-19] VITALS (8 sets, daily range): BP systolic 117–151; BP diastolic 54–67
[2019-01-19] MEDS: GABAPENTIN 300 MG CAP PO SCH ×4 (00:37→16:37)
--- NOTE | 2019-01-19 07:16 | NUR ---
Rcvd patient in report this am. Patient is asleep in bed at this time. No s/s of distress noted
[2019-01-19] MEDS: INSULIN LISPRO 100 UNIT/1 ML 3ML VIAL SQ SCH ×7 (07:59→21:41)
[2019-01-19] MEDS: SPIRONOLACTONE 25 MG TAB PO SCH (08:28)
[2019-01-19] MEDS: SERTRALINE HCL 100 MG TAB PO SCH (08:28)
[2019-01-19] MEDS: METOPROLOL TARTRATE 50 MG TAB PO SCH ×2 (08:28→16:37)
[2019-01-19] MEDS: LOSARTAN POTASSIUM 100 MG TAB PO SCH (08:28)
[2019-01-19] MEDS: ROPINIROLE HCL 1 MG TAB PO SCH ×4 (08:28→21:40)
[2019-01-19] MEDS: PANTOPRAZOLE SOD 40 MG TABEC PO SCH (08:28)
[2019-01-19] MEDS: ASPIRIN 81 MG CHEW TAB PO SCH (08:28)
--- NOTE | 2019-01-19 12:28 | NUR ---
Patient is AAOx3. Patient lung nolasco clear to auscultation. Bowel sounds present x4. No edema noted. Patient ambulates on her own. No c/o pain. No s/s of distress noted.
[2019-01-19] MEDS ORDERED: ONDANSETRON HCL INJ 2MG/ML 2ML 2 MG/ML VIAL IV PRN (18:00)
[2019-01-19] MEDS ORDERED: INSULIN GLARGINE 100 UNITS/ML VIAL SQ SCH (21:00)
[2019-01-19] MEDS: SIMVASTATIN 40 MG TAB PO SCH (21:40)
[2019-01-20] VITALS (8 sets, daily range): BP systolic 114–130; BP diastolic 55–59
[2019-01-20] MEDS: GABAPENTIN 300 MG CAP PO SCH ×5 (00:04→23:52)
--- NOTE | 2019-01-20 07:15 | NUR ---
PT RESTING IN BED AA0X3. PT IS IN NO S.S OF DISTRESS DENIES PAIN PT HAS AN IV ACCESS TO THE RIGHT FA 20 SL PATENT DRY AND INTACT WILL CONTINUE TO MONITOR PT CLOSELY, SIDE [id number], BED WHEELS LOCKED ,CALL LIGHT IS WITHIN EASY REACH, INSTRUCTED TO CALL FOR ASSISTANCE IF NEEDED
[2019-01-20] MEDS: INSULIN LISPRO 100 UNIT/1 ML 3ML VIAL SQ SCH ×7 (08:15→20:25)
[2019-01-20] MEDS: ROPINIROLE HCL 1 MG TAB PO SCH ×4 (08:23→20:25)
[2019-01-20] MEDS: PANTOPRAZOLE SOD 40 MG TABEC PO SCH (08:23)
[2019-01-20] MEDS: LOSARTAN POTASSIUM 100 MG TAB PO SCH (08:23)
[2019-01-20] MEDS: SPIRONOLACTONE 25 MG TAB PO SCH (08:23)
[2019-01-20] MEDS: METOPROLOL TARTRATE 50 MG TAB PO SCH ×2 (08:23→15:49)
[2019-01-20] MEDS: ASPIRIN 81 MG CHEW TAB PO SCH (08:23)
[2019-01-20] MEDS: SERTRALINE HCL 100 MG TAB PO SCH (08:24)
[2019-01-20] MEDS ORDERED: ONDANSETRON HCL 4 MG ORAL DISINTEGRATING TAB PO PRN (12:45)
--- NOTE | 2019-01-20 18:48 | Discharge Summary ---
HOSPITAL COURSE: Ms. Painter is a 63-year-old female with history of diabetes, hypertension, hyperlipidemia, depression, obesity, sleep apnea, restless legs syndrome, who the came to the emergency room because blood sugar in the office was 585. She states she could not afford the insulin, so she came to the emergency room, admitted, started on insulin. She was found to have some pulmonary edema in the chest x-ray. She was seen by director index and by canal lock tender chief operator. At present time, the patient is doing a little better. Her sugar is still elevated. PHYSICAL EXAMINATION: GENERAL: She is awake and alert. VITAL SIGNS: Temperature is 96.3, blood pressure 112/69. HEART: Regular rate. LUNGS: Clear to auscultation. ABDOMEN: Soft. LABORATORY DATA: On the blood work, white count is 5.65, hemoglobin 12.4, hematocrit 39.5. Potassium 3.7. Blood sugar 319 today. Stool for occult blood was positive. Chest x-ray shows some volume overload. ASSESSMENT AND PLAN: 1. Uncontrolled diabetes with hyperglycemia. 2. Hypertension. 3. Hyperlipidemia. 4. Depression. 5. Restless legs syndrome. 6. Sleep apnea. PLAN: At present time, the patient was seen by director index, who states she can continue her home medications. Dr. Gutierrez suggesting to put her on regular insulin and NPH that are the cheapest one. He also advised regarding dose and frequency. If okay with him, the patient may be able to go home today if she can afford buying the insulin and follow up with me on Monday. Please see home medication reconciliation list. All this was discussed with the patient, director case and nurse. All questions were answered to satisfaction. MD MARLY Schmidt/MODL /[id number]
--- NOTE | 2019-01-20 19:50 | NUR ---
Patient is having head ache.notified to covering doctor Chitra .received new orders.
[2019-01-20] MEDS: ACETAMINOPHEN 325 MG TAB PO PRN (20:12)
[2019-01-20] MEDS: SIMVASTATIN 40 MG TAB PO SCH (20:25)
[2019-01-20] MEDS ORDERED: INSULIN GLARGINE 100 UNITS/ML VIAL SQ SCH (21:00)
--- NOTE | 2019-01-20 22:02 | NUR ---
Assessment done.no resp.distress.no headache voiced.voided.snacks provided.bed locked and in lowest position.phone and call light within reach.instructed to call for assistance as needed.
[2019-01-21 00:57] VITALS: BP 119/57
[2019-01-21] MEDS: ACETAMINOPHEN 325 MG TAB PO PRN (02:30)
[2019-01-21 04:59] VITALS: BP 132/72
[2019-01-21] MEDS: GABAPENTIN 300 MG CAP PO SCH ×2 (05:19→12:49)
[2019-01-21 05:52] LABS: BASOPHILS % 0.6 % (0.0-1.0); EOSINOPHILS # (AUTO) 0.2 (0.0-0.4); HEMATOCRIT 39.4 % (34.2-44.1); LYMPHOCYTES # (AUTO) 1.2 (1.0-3.2); LYMPHOCYTES % 25.8 % (18.0-39.1); MEAN CORPUSCULAR HEMOGLOBIN 24.5 pg (28-32); MEAN CORPUSCULAR HGB CONC 30.5 g/dL (31-35); MEAN CORPUSCULAR VOLUME 80.4 fL (81-99); MONOCYTES # (AUTO) 0.3 (0.2-0.8); MONOCYTES % 5.8 % (4.4-11.3); NEUTROPHILS % 62.2 % (38.7-80.0); PLATELET COUNT 157 x10e3/uL (140-360); RED CELL DISTRIBUTION WIDTH 14.6 % (11.7-14.4)
[2019-01-21 06:16] LABS: ALBUMIN 3.2 g/dL (3.5-5.0); ANION GAP 11.8 mmol/L (8-16); CALCIUM 9.2 mg/dL (8.4-10.2); CREATININE, SERUM 0.98 mg/dL (0.57-1.11); POTASSIUM 4.8 mmol/L (3.5-5.1)
--- NOTE | 2019-01-21 06:50 | NUR ---
Bedside shift report given to the oncoming rn.walking rounds done.stable condition.
--- NOTE | 2019-01-21 07:00 | NUR ---
bedside report received pt in stable condition, o2 @ 2l nc, r fa 20g no ss of infiltration noted, updated on poc voiced understanding, denies pain at this time, call light in reach will continue to monitor
[2019-01-21] MEDS: INSULIN LISPRO 100 UNIT/1 ML 3ML VIAL SQ SCH ×4 (07:30→12:00)
[2019-01-21] MEDS: METOPROLOL TARTRATE 50 MG TAB PO SCH (09:00)
[2019-01-21 09:05] VITALS: BP 143/65
[2019-01-21] MEDS: ASPIRIN 81 MG CHEW TAB PO SCH (09:07)
[2019-01-21] MEDS: SERTRALINE HCL 100 MG TAB PO SCH (09:08)
[2019-01-21] MEDS: ROPINIROLE HCL 1 MG TAB PO SCH ×2 (09:08→12:49)
[2019-01-21] MEDS: LOSARTAN POTASSIUM 100 MG TAB PO SCH (09:08)
[2019-01-21] MEDS: PANTOPRAZOLE SOD 40 MG TABEC PO SCH (09:11)
[2019-01-21 09:21] VITALS: BP 143/65
--- NOTE | 2019-01-21 09:57 | Progress Note ---
DATE: 01/21/2019 SUBJECTIVE: Ms. Painter is a 63-year-old female with history of hypertension, hyperlipidemia, depression, obesity, sleep apnea, restless legs syndrome, and diabetes, came to the emergency room because her sugar was 585. She was admitted. She is on sliding scale. She is on Humalog. She is on Lantus. Blood sugar is still around 250. She also has been evaluated by Cardiology because chest x-ray showed pulmonary edema. PHYSICAL EXAMINATION: GENERAL: Today, she is awake and alert. She is feeling a little better. She is stable. Blood sugar is still high. VITAL SIGNS: Temperature is 98.4, blood pressure 132/72. HEART: Regular rate. LUNGS: Clear to auscultation. ABDOMEN: Soft. LABORATORY DATA: On the blood work, potassium 4.8, creatinine is 0.98. Glucose 252. White count is 4.81, hemoglobin is 12, and hematocrit 39.4. ASSESSMENT: 1. Uncontrolled diabetes with hyperglycemia. 2. Hypertension. 3. Hyperlipidemia. 4. Depression. 5. Restless legs syndrome. 6. Sleep apnea. PLAN: The plan at present time is to continue ADA diet. Continue with sliding scale. Continue Humalog 35 units subcu t.i.d., and Lantus 55 units at bedtime. If blood sugar gets better, she may be able to go home tomorrow morning. All this was discussed with the patient. All questions were answered to satisfaction. MD MARLY Schmidt/ELVIN /[id number]
[2019-01-21 13:16] VITALS: BP 121/58
--- NOTE | 2019-01-21 13:34 | NUR ---
dr olmos at bedside, informed of pts bedside glucose at noon was 302, insulin orders changed and states patient can go home from his standpoint,scripts left on chart
--- NOTE | 2019-01-21 14:35 | NUR ---
paged dr mitchell re: dc order awaiting call back
--- NOTE | 2019-01-21 15:09 | NUR ---
spoke with dr oliva,informed of amarilis ang to discharge pt home from his standpoint, new orders noted
[2019-01-21] MEDS ORDERED: LANTUS 3ML100 UNITS/ SQ (15:12)
[2019-01-21] MEDS ORDERED: HUMALOG100 UNIT/3 SQ (15:12)
[2019-01-21] MEDS ORDERED: INSULIN LISPRO 100 UNIT/1 ML 3ML VIAL SQ SCH (17:00)
[2019-01-21] MEDS ORDERED: METOPROLOL TARTRATE 25 MG TAB PO SCH (17:00)
[2019-01-21] MEDS ORDERED: INSULIN GLARGINE 100 UNITS/ML VIAL SQ SCH (21:00)
== END 2019-01-21 16:15 | disposition home health service (06) | DRG 637 ==
LOC: ER 19:38 → ERHOLD 22:10 → IMCU 23:00 → OBSVTOIN 01-18 14:54 → MED/SURG 01-18 17:30
PROVIDERS: ADMIT Internal Medicine; ATTEND Internal Medicine
DX: E11.65 Type 2 diabetes mellitus with hyperglycemia (principal); I50.33 Acute on chronic diastolic (congestive) heart failure; Z68.41 Body mass index [BMI] 40.0-44.9, adult; Z79.4 Long term (current) use of insulin; E78.5 Hyperlipidemia, unspecified; F32.9 Major depressive disorder, single episode, unspecified; G25.81 Restless legs syndrome; K21.9 Gastro-esophageal reflux disease without esophagitis; E78.00 Pure hypercholesterolemia, unspecified; E66.9 Obesity, unspecified; I11.0 Hypertensive heart disease with heart failure; I27.20 Pulmonary hypertension, unspecified; E11.40 Type 2 diabetes mellitus with diabetic neuropathy, unspecified; R06.09 Other forms of dyspnea; N32.81 Overactive bladder; Z87.891 Personal history of nicotine dependence; Z91.14 Patient's other noncompliance with medication regimen; J44.9 Chronic obstructive pulmonary disease, unspecified; I25.10 Atherosclerotic heart disease of native coronary artery without angina pectoris; G47.30 Sleep apnea, unspecified
CPT/HCPCS: 36415; 71045; 80053; 80061; 81001; 82270; 82550; 82553; 82948; 83036; 83880; 84439; 84443; 84484; 85025; 93005; 96372; 96374; 99284; G0378; J1815; J1817; J1940; J2405

== ENCOUNTER 2019-02-23 23:49 | Emergency (ER) | payer OTHER ==
[~2019-02-23] VITALS: Ht 160 cm; Wt 106.1 kg
[~2019-02-23 23:49] MED LIST changes: +HUMALOG100 UNIT/3 SQ; +LANTUS 3ML100 UNITS/ SQ; +LOSARTAN POTASS50 MG PO; +POTASSIUM CHLO10 MEQ PO
[2019-02-24 00:14] LABS: BASOPHILS # (AUTO) 0.1 (0.0-0.1); EOSINOPHILS # (AUTO) 0.2 (0.0-0.4); EOSINOPHILS % 3.3 % (0.0-6.0); HEMATOCRIT 37.6 % (34.2-44.1); HEMOGLOBIN 11.8 g/dL (12.0-16.0); MEAN CORPUSCULAR HEMOGLOBIN 25.4 pg (28-32); MEAN CORPUSCULAR HGB CONC 31.4 g/dL (31-35); MONOCYTES # (AUTO) 0.3 (0.2-0.8); MONOCYTES % 5.1 % (4.4-11.3); NEUTROPHILS # (AUTO) 3.5 (2.1-6.9); NEUTROPHILS % 69.6 % (38.7-80.0); PLATELET COUNT 155 x10e3/uL (140-360); RED BLOOD COUNT 4.64 x10e6/uL (3.6-5.1); RED CELL DISTRIBUTION WIDTH 15.5 % (11.7-14.4)
[2019-02-24 00:33] LABS: ALBUMIN 3.5 g/dL (3.5-5.0); ALBUMIN/GLOBULIN RATIO 1.1 (0.8-2.0); ANION GAP 16.4 mmol/L (8-16); CALCIUM 9.5 mg/dL (8.4-10.2); CREATININE, SERUM 1.44 mg/dL (0.57-1.11); POTASSIUM 4.4 mmol/L (3.5-5.1)
--- NOTE | 2019-02-24 00:37 | NUR ---
DR. JANE AND GEOVANI, RN NOTIFIED AND AWARE OF CRITICAL LAB VALUE; GLUCOSE 665.
[2019-02-24] MEDS ORDERED: INSULIN REGULAR, HUMAN 100 UNIT/1 ML 3ML VIAL SQ ONE ×2 (00:45→03:00)
[2019-02-24] MEDS ORDERED: INSULIN REGULAR, HUMAN 100 UNIT/1 ML 3ML VIAL IV ONE (00:45)
[2019-02-24] MEDS ORDERED: SODIUM CHLORIDE 0.9% 1000ML 1,000 ML IV ONE (00:45)
--- NOTE | 2019-02-24 01:28 | Diagnostic Imaging Report ---
LEFT FOREARM RADIOGRAPHS 3 VIEWS HISTORY: Pain COMPARISON: None available. FINDINGS: Bones: No acute displaced fracture. Osseous alignment is within normal limits. Joints: The joint spaces are well-maintained. Soft tissues: The soft tissues appear unremarkable. IMPRESSION: No acute radiographic abnormality. Signed by: Bradley Nascimento DO on 02/24/2019 1:24 AM
--- NOTE | 2019-02-24 01:55 | NUR ---
493 bg bedside- dr silveira aware, recheck in 1 hour
[2019-02-24 05:11] VITALS: BP 171/69
== END 2019-02-24 05:38 | disposition home or self-care (01) ==
LOC: ER 23:49
DX: S00.83XA Contusion of other part of head, initial encounter (principal); S50.12XA Contusion of left forearm, initial encounter; Y04.0XXA Assault by unarmed brawl or fight, initial encounter; Y92.512 Supermarket, store or market as the place of occurrence of the external cause; E11.65 Type 2 diabetes mellitus with hyperglycemia
CPT/HCPCS: 36415; 73090; 80053; 82948; 85025; 99284; J7030

== ENCOUNTER 2019-03-15 01:19 | Emergency (ER) | payer OTHER ==
[~2019-03-15] VITALS: Ht 160 cm; Wt 106.1 kg
[2019-03-15] MEDS ORDERED: INSULIN REGULAR, HUMAN 100 UNIT/1 ML 3ML VIAL IV ONE (01:30)
[2019-03-15] MEDS ORDERED: INSULIN REGULAR, HUMAN 100 UNIT/1 ML 3ML VIAL SQ ONE (01:30)
[2019-03-15] MEDS ORDERED: SODIUM CHLORIDE 0.9% 500ML 500 ML IV ONE (01:30)
[2019-03-15 02:11] LABS: BASOPHILS # (AUTO) 0.1 (0.0-0.1); BASOPHILS % 0.9 % (0.0-1.0); EOSINOPHILS # (AUTO) 0.1 (0.0-0.4); EOSINOPHILS % 1.8 % (0.0-6.0); HEMATOCRIT 38.1 % (34.2-44.1); HEMOGLOBIN 11.3 g/dL (12.0-16.0); LYMPHOCYTES # (AUTO) 1.1 (1.0-3.2); LYMPHOCYTES % 20.1 % (18.0-39.1); MEAN CORPUSCULAR HEMOGLOBIN 25.3 pg (28-32); MEAN CORPUSCULAR HGB CONC 29.7 g/dL (31-35); MEAN CORPUSCULAR VOLUME 85.2 fL (81-99); MONOCYTES # (AUTO) 0.2 (0.2-0.8); MONOCYTES % 3.8 % (4.4-11.3); NEUTROPHILS % 71.8 % (38.7-80.0); PLATELET COUNT 175 x10e3/uL (140-360); RED BLOOD COUNT 4.47 x10e6/uL (3.6-5.1)
[2019-03-15 02:17] LABS: ANION GAP 14.2 mmol/L (8-16); CALCIUM 8.8 mg/dL (8.4-10.2); CREATININE, SERUM 1.11 mg/dL (0.57-1.11); POTASSIUM 4.2 mmol/L (3.5-5.1)
[2019-03-15] MEDS ORDERED: IBUPROFEN 600 MG TAB PO STA (03:05)
--- NOTE | 2019-03-15 03:17 | Diagnostic Imaging Report ---
EXAMINATION: CHEST SINGLE (PORTABLE) INDICATION: Short of breath COMPARISON: Chest radiograph 01/16/2019, 01/11/2019 FINDINGS: AP view TUBES and LINES: None. LUNGS: Low lung volumes with vascular crowding and bibasilar atelectasis. There is mild prominence of the central pulmonary vasculature, consistent with pulmonary venous congestion. PLEURA: No pleural effusion or pneumothorax. HEART AND MEDIASTINUM: Cardiac size is mildly enlarged. BONES AND SOFT TISSUES: No acute osseous lesion. Soft tissues are unremarkable. UPPER ABDOMEN: No free air under the diaphragm. IMPRESSION: Low lung volumes with vascular crowding and bibasilar atelectasis. Cardiomegaly and pulmonary vascular congestion. Signed by: Bradley Nascimento DO on 03/15/2019 3:14 AM
[2019-03-15 03:21] VITALS: BP 121/57
== END 2019-03-15 03:30 | disposition home or self-care (01) ==
LOC: ER 01:19
DX: E11.65 Type 2 diabetes mellitus with hyperglycemia (principal); Z91.14 Patient's other noncompliance with medication regimen; Z91.11 Patient's noncompliance with dietary regimen; E11.40 Type 2 diabetes mellitus with diabetic neuropathy, unspecified; Z79.4 Long term (current) use of insulin; Z79.82 Long term (current) use of aspirin; F17.200 Nicotine dependence, unspecified, uncomplicated; I11.0 Hypertensive heart disease with heart failure; I50.9 Heart failure, unspecified; K21.9 Gastro-esophageal reflux disease without esophagitis; J44.9 Chronic obstructive pulmonary disease, unspecified; G47.30 Sleep apnea, unspecified; G25.81 Restless legs syndrome; E78.5 Hyperlipidemia, unspecified; M54.9 Dorsalgia, unspecified; G89.29 Other chronic pain
CPT/HCPCS: 36415; 71045; 80048; 82948; 85025; 99284; J1817

== ENCOUNTER 2019-04-17 20:48 | Emergency (ER) | payer OTHER ==
[~2019-04-17] VITALS: Ht 160 cm; Wt 106.1 kg
== END 2019-04-17 21:35 | disposition home or self-care (01) ==
LOC: ER 20:48
DX: E11.65 Type 2 diabetes mellitus with hyperglycemia (principal); I10 Essential (primary) hypertension; J44.9 Chronic obstructive pulmonary disease, unspecified; I50.9 Heart failure, unspecified; E78.5 Hyperlipidemia, unspecified; K21.9 Gastro-esophageal reflux disease without esophagitis; F41.9 Anxiety disorder, unspecified; F32.9 Major depressive disorder, single episode, unspecified
CPT/HCPCS: 36415; 82948; 99282

== ENCOUNTER 2019-04-23 20:19 | Emergency (ER) | payer OTHER ==
[~2019-04-23] VITALS: Ht 160 cm; Wt 106.1 kg
[2019-04-23] MEDS ORDERED: BACITRACIN-P28.35 GM TOP (20:51)
[2019-04-23] MEDS ORDERED: HIBICLENS120 ML TOP (20:51)
[2019-04-23] MEDS ORDERED: CLOTRIMAZOLE-BE15 GM TOP (20:51)
== END 2019-04-23 20:58 | disposition home or self-care (01) ==
LOC: ER 20:19
DX: L24.9 Irritant contact dermatitis, unspecified cause (principal); L50.0 Allergic urticaria
CPT/HCPCS: 99282

== ENCOUNTER 2019-04-27 02:46 | Emergency (ER) | payer OTHER ==
[~2019-04-27] VITALS: Ht 160 cm; Wt 106.1 kg
[~2019-04-27 02:46] MED LIST changes: +BACITRACIN-P28.35 GM TOP; +CLOTRIMAZOLE-BE15 GM TOP; +HIBICLENS120 ML TOP
--- NOTE | 2019-04-27 04:16 | Diagnostic Imaging Report ---
X-RAY RIGHT KNEE 3 VIEWS HISTORY: Pain. COMPARISON: None available. FINDINGS: Bones: No acute displaced fracture. Osseous alignment is within normal limits. Joints: Patellofemoral and tibiofemoral osteophytes. Joint space loss at the patellofemoral articulation. Soft tissues: Vascular calcifications. IMPRESSION: No acute radiographic abnormality. Mild degenerative changes in the knee, worst in the patellofemoral joint. Signed by: Bradley Nascimento DO on 04/27/2019 4:12 AM
[2019-04-27 04:28] VITALS: BP 144/77
--- NOTE | 2019-04-27 04:30 | NUR ---
pt dc'd home, paperwork provided. pt states that unable to obtain ride home and that does not have money for cab. requesting cab voucher. seed production field supervisor called and notified.
== END 2019-04-27 04:46 | disposition home or self-care (01) ==
LOC: ER 02:46
DX: S80.01XA Contusion of right knee, initial encounter (principal); W01.0XXA Fall on same level from slipping, tripping and stumbling without subsequent striking against object, initial encounter; Y92.008 Other place in unspecified non-institutional (private) residence as the place of occurrence of the external cause; I10 Essential (primary) hypertension; E11.40 Type 2 diabetes mellitus with diabetic neuropathy, unspecified; E78.5 Hyperlipidemia, unspecified; F41.9 Anxiety disorder, unspecified; F32.9 Major depressive disorder, single episode, unspecified; J44.9 Chronic obstructive pulmonary disease, unspecified
CPT/HCPCS: 99283

== ENCOUNTER 2020-02-05 04:14 | Emergency (ER) | payer OTHER ==
[~2020-02-05] VITALS: Ht 160 cm; Wt 108.9 kg
[2020-02-05] MEDS ORDERED: ASPIRIN 81 MG CHEW TAB PO ONE (04:45)
--- NOTE | 2020-02-05 04:50 | Emergency Department Note ---
History of Present Illnes History of Present Illness Chief Complaint: General Medicine Complaints History of Present Illness This is a 64 year old female with n/v and myalgias of the upper torso. Denies f/c. (+) abd pain . 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 Arrival Mode: [facility] Onset (how long ago): day(s) (2) Radiation: Reports back Severity: moderate Onset quality: gradual Duration (how long): hour(s) Timing of current episode: constant Progression: worsening Chronicity: new Context: Denies recent illness, Denies recent surgery, Denies recent immobilization, Denies recent travel, Denies trauma/injury, Denies new medications, Denies hx of DVT/PE, Denies non-compliance w/ medications, Denies other Relieving factors: none Exacerbating factors: none Associated symptoms: Reports nausea/vomiting, Reports weakness Treatments prior to arrival: none (RAFAELA MCADAMS DO) Past Medical/Family History Physician Review I have reviewed the patient's past medical and family history. Any updates have been documented here. (RAFAELA MCADAMS DO) Past Medical History Recent Fever: No Clinical Suspicion of Infectio: No New/Unexplained Change in Ment: No Past Medical History: Hypertension, Diabetes, COPD, CHF, UTI's, Anxiety, Depression, GERD, Hyperlipedemia, Chronic Back Pain Other Medical History: sleep apnea restless leg syndrome diabetic neuropathy Past Surgical History: Appendectomy Other Surgery: left foot sx (RAFAELA MCADAMS DO) Other Last Tetanus: UNK (RAFAELA MCADAMS DO) Review of Systems Review of Systems Constitutional: Reports weakness Gastrointestinal: Reports abdominal pain (RAFAELA MCADAMS DO) Physical Exam Related Data Allergies: Coded Allergies: Penicillins (Verified Allergy, Unknown, rash, 01/10/19) Triage Vital Signs Vital Signs Date Time Temp Pulse Resp B/P (MAP) Pulse Ox O2 Delivery O2 Flow Rate FiO2 02/05/20 04:23 97.9 56 20 122/54 100 Nasal Cannula 3.0 Vital signs reviewed: Yes (RAFAELA MCADAMS DO) Physical Exam CONSTITUTIONAL Constitutional: Present morbidly obese HENT HENT: Present normocephalic, Present atraumatic, Present oropharynx clear /moist, Present nose normal HENT L/R: Present left ext ear normal, Present right ext ear normal EYES Eyes: Reports PERRL, Reports conjunctivae normal NECK Neck: Present ROM normal PULMONARY Pulmonary: Present effort normal, Present breath sounds normal CARDIOVASCULAR Cardiovascular: Present LLE edema, Present RLE edema GASTROINTESTINAL Abdominal: Present soft, Present distension, Present tender GENITOURINARY Genitourinary: Present exam deferred SKIN Skin: Present warm, Present dry MUSCULOSKELETAL Musculoskeletal: Present ROM normal NEUROLOGICAL Neurological: Present alert, Present oriented x 3, Present no gross motor or sensory deficits PSYCHOLOGICAL Psychological: Present mood/affect normal, Present judgement normal (RAFAELA MCADAMS DO) Results Laboratory Lab results reviewed: Yes (RAFAELA MCADAMS DO) Imaging Imaging results reviewed: Yes Impressions [place] [address] Patient Name: KALYANI TALAVERA MR #: [id number] : 1955 Age/Sex: 64/F Req #: [id number] Adm Physician: Ordered by: RAFAELA MCADAMS DO Report #: [id number] Location: ER Room/Bed: ____ Procedure: [id number] CT/CT ABDOMEN/PELVIS W Exam Date: 02/05/20 Exam Time: 0559 REPORT STATUS: Signed ADDENDUM #1 Addendum: GI TRACT section should read as follows: GI TRACT: No bowel dilation or evidence of obstruction. No pericolonic inflammatory changes. Appendix is not visualized, however, no pericecal or periappendiceal inflammatory changes are noted. No wall thickening or focal intraluminal mass. Stomach is unremarkable. Signed by: Dr. Gerry Robins M.D. on 02/05/2020 6:44 AM ORIGINAL REPORT EXAMINATION: CT of the chest, abdomen and pelvis with contrast. TECHNIQUE: Spiral CT images of the chest, abdomen and pelvis were performed from the lung apices to the lesser trochanters after the intravenous administration of 100 cc of Isovue 370 and the oral administration of water. Coronal and sagittal reformatted images were obtained. COMPARISON: None. CLINICAL HISTORY:Bilateral shoulder pain 2 days ago. No history of trauma. History of COPD. Diffuse abdominal pain for 2 days DISCUSSION: CHEST: LINES/TUBES: None. LUNGS AND AIRWAYS: Mildly increased attenuation of the pulmonary parenchyma secondary to scan acquired in partial expiratory phase. Mosaic attenuation of the upper and lower lobes, with decrease caliber of vessels in lucent areas compared to the more attenuated areas. Atelectatic changes in the right middle lobe and right lower lobe secondary to eventration of the right hemidiaphragm. No pulmonary nodules. No masses or consolidation. Airways are clear, without endobronchial lesions. PLEURA: The pleural spaces are clear. HEART AND MEDIASTINUM: 1.2 cm hypodense nodule in the posterior left thyroid lobe (series 3, image 2). Heart size is normal. No pericardial effusion. Mild atherosclerotic calcification of the coronary arteries and aortic valves and thoracic aortic arch. Main pulmonary artery measures 3.4 cm LYMPH NODES: Enlarged right lower paratracheal lymph node which measures 1.2 cm in short axis. No other mediastinal or hilar or axillary adenopathy. BONES AND SOFT TISSUES: No bony destructive lesions. No soft tissue abnormalities. ABDOMEN/PELVIS: HEPATOBILIARY: No focal hepatic lesions. No intra or extrahepatic biliary ductal dilation. GALLBLADDER: No radio-opaque stones or sludge. No wall thickening. SPLEEN: Mild splenomegaly, measuring 14.2 cm in craniocaudal diameter. Ill-defined 1.1 cm hypodense lesion in the spleen (series 3, image 53) PANCREAS: No focal masses or ductal dilatation. ADRENALS: No adrenal nodules. KIDNEYS/URETERS: No hydronephrosis, stones, or solid mass lesions. 6-7 millimeter hypodense lesion in superior to mid right kidney (coronal image 75), which is too small to characterize but likely represents a small cyst. PELVIC ORGANS/BLADDER: Bladder and uterus are unremarkable. No adnexal masses. PERITONEUM/RETROPERITONEUM: No free air or fluid. LYMPH NODES: No intra-abdominal,retroperitoneal, pelvic or inguinal lymphadenopathy. VESSELS: The celiac trunk,superior and inferior mesenteric and bilateral renal arteries are patent The portal, superior mesenteric and splenic veins are patent. Atherosclerotic calcification of the infrarenal abdominal aorta and proximal iliac vessels. GI TRACT: No bowel dilation or evidence of obstruction. No pericolonic inflammatory changes. Appendix is not visualized, however, no air is seen, periappendiceal inflammatory changes are noted. No wall thickening or focal intraluminal mass. Stomach is unremarkable. BONES AND SOFT TISSUES: No aggressive lytic or suspicious sclerotic lesion. Mildly degenerated discs with associated osteophytosis in the lower thoracic spine. Facet hypertrophy L5-S1. Grossly unremarkable. IMPRESSION: 1. Findings in the lungs suspicious for obstructive small airway disease such as bronchiolitis. No consolidation or effusion. Dilated main pulmonary artery suggests pulmonary hypertension. 2. No acute abdominopelvic abnormalities. Specifically, no acute abnormal findings to explain the patient's abdominal pain. 3. Mild splenomegaly. Indeterminate 1.1 cm hypodense lesion in the spleen. This may represent a small lymphangioma or cyst. 4. 1.2 cm nodule in the left thyroid lobe. Dedicated thyroid ultrasound would be helpful for further evaluation, on a nonemergent basis Signed by: Dr. Gerry Robins M.D. on 02/05/2020 6:39 AM Dictated By: GERRY ROBINS MD [id number] Transcribed By: JIM on 02/05/20 0639 COPY TO: RAFAELA MCADAMS DO~ [place] [address] Patient Name: KALYANI TALAVERA MR #: [id number] : 1955 Age/Sex: 64/F Req #: [id number] Adm Physician: Ordered by: RAFAELA MCADAMS DO Report #: [id number] Location: ER Room/Bed: Procedure: [id number] CT/CT CHEST W Exam Date: 02/05/20 Exam Time: 0559 REPORT STATUS: Signed ADDENDUM #1 Addendum: GI TRACT section should read as follows: GI TRACT: No bowel dilation or evidence of obstruction. No pericolonic inflammatory changes. Appendix is not visualized, however, no pericecal or periappendiceal inflammatory changes are noted. No wall thickening or focal intraluminal mass. Stomach is unremarkable. Signed by: Dr. Gerry Robins M.D. on 02/05/2020 6:44 AM ORIGINAL REPORT EXAMINATION: CT of the chest, abdomen and pelvis with contrast. TECHNIQUE: Spiral CT images of the chest, abdomen and pelvis were performed from the lung apices to the lesser trochanters after the intravenous administration of 100 cc of Isovue 370 and the oral administration of water. Coronal and sagittal reformatted images were obtained. COMPARISON: None. CLINICAL HISTORY:Bilateral shoulder pain 2 days ago. No history of trauma. History of COPD. Diffuse abdominal pain for 2 days DISCUSSION: CHEST: LINES/TUBES: None. LUNGS AND AIRWAYS: Mildly increased attenuation of the pulmonary parenchyma secondary to scan acquired in partial expiratory phase. Mosaic attenuation of the upper and lower lobes, with decrease caliber of vessels in lucent areas compared to the more attenuated areas. Atelectatic changes in the right middle lobe and right lower lobe secondary to eventration of the right hemidiaphragm. No pulmonary nodules. No masses or consolidation. Airways are clear, without endobronchial lesions. PLEURA: The pleural spaces are clear. HEART AND MEDIASTINUM: 1.2 cm hypodense nodule in the posterior left thyroid lobe (series 3, image 2). Heart size is normal. No pericardial effusion. Mild atherosclerotic calcification of the coronary arteries and aortic valves and thoracic aortic arch. Main pulmonary artery measures 3.4 cm LYMPH NODES: Enlarged right lower paratracheal lymph node which measures 1.2 cm in short axis. No other mediastinal or hilar or axillary adenopathy. BONES AND SOFT TISSUES: No bony destructive lesions. No soft tissue abnormalities. ABDOMEN/PELVIS: HEPATOBILIARY: No focal hepatic lesions. No intra or extrahepatic biliary ductal dilation. GALLBLADDER: No radio-opaque stones or sludge. No wall thickening. SPLEEN: Mild splenomegaly, measuring 14.2 cm in craniocaudal diameter. Ill-defined 1.1 cm hypodense lesion in the spleen (series 3, image 53) PANCREAS: No focal masses or ductal dilatation. ADRENALS: No adrenal nodules. KIDNEYS/URETERS: No hydronephrosis, stones, or solid mass lesions. 6-7 millimeter hypodense lesion in superior to mid right kidney (coronal image 75), which is too small to characterize but likely represents a small cyst. PELVIC ORGANS/BLADDER: Bladder and uterus are unremarkable. No adnexal masses. PERITONEUM/RETROPERITONEUM: No free air or fluid. LYMPH NODES: No intra-abdominal,retroperitoneal, pelvic or inguinal lymphadenopathy. VESSELS: The celiac trunk,superior and inferior mesenteric and bilateral renal arteries are patent The portal, superior mesenteric and splenic veins are patent. Atherosclerotic calcification of the infrarenal abdominal aorta and proximal iliac vessels. GI TRACT: No bowel dilation or evidence of obstruction. No pericolonic inflammatory changes. Appendix is not visualized, however, no air is seen, periappendiceal inflammatory changes are noted. No wall thickening or focal intraluminal mass. Stomach is unremarkable. BONES AND SOFT TISSUES: No aggressive lytic or suspicious sclerotic lesion. Mildly degenerated discs with associated osteophytosis in the lower thoracic spine. Facet hypertrophy L5-S1. Grossly unremarkable. IMPRESSION: 1. Findings in the lungs suspicious for obstructive small airway disease such as bronchiolitis. No consolidation or effusion. Dilated main pulmonary artery suggests pulmonary hypertension. 2. No acute abdominopelvic abnormalities. Specifically, no acute abnormal findings to explain the patient's abdominal pain. 3. Mild splenomegaly. Indeterminate 1.1 cm hypodense lesion in the spleen. This may represent a small lymphangioma or cyst. 4. 1.2 cm nodule in the left thyroid lobe. Dedicated thyroid ultrasound would be helpful for further evaluation, on a nonemergent basis Signed by: Dr. Gerry Robins M.D. on 02/05/2020 6:39 AM Dictated By: GERRY ROBINS MD [id number] Transcribed By: JIM on 02/05/20 0639 COPY TO: RAFAELA MCADAMS DO~ (RAFAELA MCADAMS DO) Procedures 12 Lead ECG Interpretation ECG Interpretation : ECG: ECG 1 Pcb Designer: Interpreted by ED physician Date: Feb 05, 2020 Time: 05:11 Prior ECG tracings: reviewed Rhythm: sinus bradycardia Rate: bradycardia BPM: 51 QRS axis: normal ST segments normal: Yes T waves normal: Yes Clinical Impression: non-specific ECG (RAFAELA MCADAMS DO) ABG Interpretation ABG Results: ABG 1 Interpretation: respiratory acidosis (RAFAELA MCADAMS DO) Assessment & Plan Medical Decision Making MDM 64 yof presents with abdominal pain and non-specific myalgias. CBC, CMP, EKG, , cardiac enzymes, UA and CTS ordered to r/o appendicitis, Acute coronary syndrome, COVID-19 infection diverticulitis, UTI, kidney stone, perforated viscus, obstruction, ischemia, and biliary pathology (RAFAELA MCADAMS DO) MDM W/U PER DR MCADAMS, CT NOT INDICATIVE OF COVID (SWAB STILL PENDING). (FLO TOLBERT MD) Reassessment Reassessment PT FEELS BETTER, IS ON HOME O2 AT 3-4L NC, CURRENTLY O2 SAT 100% ON 2L, LUNGS WITHOUT WHEEZING JUST MILD DECR AIR MOVEMENT. DC HOME, ZPACK, INCR PREDNISONE TO 60 QDAY X 5 DAYS THEN DECR BACK TO 40 QDAY , F/U PCP AND PULM TOMORROW, F/U COVID RESULTS, SELF-QUARANTINE, PRONING. (FLO TOLBERT MD) Assessment & Plan Final Impression: (1) COPD (chronic obstructive pulmonary disease) (2) Bronchitis (3) Abdominal pain (RAAFELA MCADAMS DO) Final Impression: (1) Bronchitis (2) COPD (chronic obstructive pulmonary disease) (FLO TOLBERT MD) Depart Disposition: HOME, SELF-CARE Last Vital Signs Date Time Temp Pulse Resp B/P (MAP) Pulse Ox O2 Delivery O2 Flow Rate FiO2 02/05/20 04:38 59 18 104/50 98 02/05/20 04:23 97.9 Nasal Cannula 3.0 (RAFAELA MCADAMS DO) Home Meds Reported Medications Insulin Lispro (HUMALOG) 100 Unit/1 Ml Insuln.pen, 30 UNITS SQ TIDWM 01/21/19 Insulin Glargine (LANTUS 3ML PEN) 100 Units/1 Ml Inj, 60 UNITS SQ HS 01/21/19 Glimepiride (GLIMEPIRIDE) 2 Mg Tablet, 2 MG PO DAILY 01/16/19 Losartan Potassium (LOSARTAN POTASSIUM) 50 Mg Tablet, 50 MG PO DAILY 01/16/19 Potassium Chloride (POTASSIUM CHLORIDE) 10 Meq Tablet.er, 10 MEQ PO DAILY 01/16/19 Spironolactone (SPIRONOLACTONE) 25 Mg Tablet, 25 MG PO DAILY, TAB 06/27/18 Sertraline Hcl (SERTRALINE HCL) 100 Mg Tablet, 100 MG PO DAILY, TAB 06/27/18 Ropinirole Hcl (ROPINIROLE HCL) 1 Mg Tablet, 2 MG PO QID, #30 TAB 12/24/17 Simvastatin (SIMVASTATIN) 40 Mg Tablet, 40 MG PO 2100, #30 TAB 09/28/17 Gabapentin (GABAPENTIN) 300 Mg Capsule, 300 MG PO Q6H, #120 CAP 09/28/17 Furosemide (FUROSEMIDE) 40 Mg Tablet, 40 MG PO BID, #60 TAB 09/28/17 Metoprolol Tartrate (METOPROLOL TARTRATE) 50 Mg Tablet, 50 MG PO BID, TAB 09/28/17 Omeprazole (OMEPRAZOLE) 40 Mg Capsule.dr, 40 MG PO DAILY 09/28/17 Aspirin (ASPIR 81) 81 Mg Tablet.dr, 81 MG PO DAILY 09/28/17 Discontinued Scripts Chlorhexidine Gluconate (HIBICLENS) 120 Ml Liqd, 5 ML TOP TID for 10 Days, #120 ML Prov:ELIESER BACK DO 04/23/19 Bacitracin/Polymyxin B Sulfate (BACITRACIN-POLYMYXIN OINTMENT) 28.35 Gm Oint...g., 2 GM TOP TID for 10 Days, #1 Prov:ELIESER BACK DO 04/23/19 Betamethasone/Clotrimazole (CLOTRIMAZOLE-BETAMETHASONE CRM) 15 Gm Cr, 2 GM TOP TID for 10 Days, EACH Prov:ELIESER BACK DO 04/23/19 RAFAELA MCADAMS DO Feb 05, 2020 04:50 FLO TOLBERT MD Feb 05, 2020 09:16
[2020-02-05 05:10] LABS: BASOPHILS % 0.5 % (0.0-1.0); EOSINOPHILS # (AUTO) 0.1 (0.0-0.4); EOSINOPHILS % 0.9 % (0.0-6.0); HEMATOCRIT 30.1 % (34.2-44.1); HEMOGLOBIN 8.6 g/dL (12.0-16.0); LYMPHOCYTES # (AUTO) 0.7 (1.0-3.2); LYMPHOCYTES % 9.1 % (18.0-39.1); MEAN CORPUSCULAR HEMOGLOBIN 22.5 pg (28-32); MEAN CORPUSCULAR HGB CONC 28.6 g/dL (31-35); MEAN CORPUSCULAR VOLUME 78.8 fL (81-99); MONOCYTES # (AUTO) 0.5 (0.2-0.8); MONOCYTES % 6.7 % (4.4-11.3); NEUTROPHILS # (AUTO) 6.4 (2.1-6.9); NEUTROPHILS % 80.7 % (38.7-80.0); PLATELET COUNT 165 x10e3/uL (140-360); RED BLOOD COUNT 3.82 x10e6/uL (3.6-5.1); RED CELL DISTRIBUTION WIDTH 16.1 % (11.7-14.4)
--- NOTE | 2020-02-05 05:16 | NUR ---
RT called for ABG at this time
[2020-02-05 05:29] LABS: ALANINE AMINOTRANSFERASE 17 IU/L (0-55); ALBUMIN 3.1 g/dL (3.5-5.0); ALKALINE PHOSPHATASE 96 IU/L (40-150); BLOOD UREA NITROGEN 14 mg/dL (7-26); BUN/CREATININE RATIO 17 (6-25); CALCIUM 8.7 mg/dL (8.4-10.2); CARBON DIOXIDE 27 mmol/L (22-29); CHLORIDE 105 mmol/L (98-107); CREATINE KINASE 22 IU/L (29-168); CREATININE, SERUM 0.81 mg/dL (0.57-1.11); EST GLOMERULAR FILTRATION RATE > 60 ML/MIN (60-); GLUCOSE 138 mg/dL (74-118); SODIUM 139 mmol/L (136-145)
--- NOTE | 2020-02-05 05:31 | NUR ---
VBG drawn at this time
[2020-02-05 05:40] LABS: ABG PCO2 57 mmHg (35-45); ABG PH 7.31 (7.35-7.45); ABG PO2 61 mmHg (80-105)
[2020-02-05 05:41] LABS: ABG HCO3 29 mmol/L (22-26)
[2020-02-05] MEDS ORDERED: IOPAMIDOL 370 MG/ML 200 ML INFUS..BTL INJ ONE (05:46)
[2020-02-05] MEDS ORDERED: SODIUM CHLORIDE 0.9% 50ML 50 ML ONE (05:46)
[2020-02-05] MEDS ORDERED: AZITHROMYCIN 500MG/NS 250 ML 250 ML IV STA (06:17)
[2020-02-05] MEDS ORDERED: CIPROFLOXACIN 400 MG/D5W 200ML 200 ML IV STA (06:17)
--- NOTE | 2020-02-05 06:18 | NUR ---
Unable to obtain urine sample at this time.
--- NOTE | 2020-02-05 06:43 | Diagnostic Imaging Report ---
ADDENDUM #1 Addendum: GI TRACT section should read as follows: GI TRACT: No bowel dilation or evidence of obstruction. No pericolonic inflammatory changes. Appendix is not visualized, however, no pericecal or periappendiceal inflammatory changes are noted. No wall thickening or focal intraluminal mass. Stomach is unremarkable. Signed by: Dr. Yash Robins M.D. on 02/05/2020 6:44 AM ORIGINAL REPORT EXAMINATION: CT of the chest, abdomen and pelvis with contrast. TECHNIQUE: Spiral CT images of the chest, abdomen and pelvis were performed from the lung apices to the lesser trochanters after the intravenous administration of 100 cc of Isovue 370 and the oral administration of water. Coronal and sagittal reformatted images were obtained. COMPARISON: None. CLINICAL HISTORY:Bilateral shoulder pain 2 days ago. No history of trauma. History of COPD. Diffuse abdominal pain for 2 days DISCUSSION: CHEST: LINES/TUBES: None. LUNGS AND AIRWAYS: Mildly increased attenuation of the pulmonary parenchyma secondary to scan acquired in partial expiratory phase. Mosaic attenuation of the upper and lower lobes, with decrease caliber of vessels in lucent areas compared to the more attenuated areas. Atelectatic changes in the right middle lobe and right lower lobe secondary to eventration of the right hemidiaphragm. No pulmonary nodules. No masses or consolidation. Airways are clear, without endobronchial lesions. PLEURA: The pleural spaces are clear. HEART AND MEDIASTINUM: 1.2 cm hypodense nodule in the posterior left thyroid lobe (series 3, image 2). Heart size is normal. No pericardial effusion. Mild atherosclerotic calcification of the coronary arteries and aortic valves and thoracic aortic arch. Main pulmonary artery measures 3.4 cm LYMPH NODES: Enlarged right lower paratracheal lymph node which measures 1.2 cm in short axis. No other mediastinal or hilar or axillary adenopathy. BONES AND SOFT TISSUES: No bony destructive lesions. No soft tissue abnormalities. ABDOMEN/PELVIS: HEPATOBILIARY: No focal hepatic lesions. No intra or extrahepatic biliary ductal dilation. GALLBLADDER: No radio-opaque stones or sludge. No wall thickening. SPLEEN: Mild splenomegaly, measuring 14.2 cm in craniocaudal diameter. Ill-defined 1.1 cm hypodense lesion in the spleen (series 3, image 53) PANCREAS: No focal masses or ductal dilatation. ADRENALS: No adrenal nodules. KIDNEYS/URETERS: No hydronephrosis, stones, or solid mass lesions. 6-7 millimeter hypodense lesion in superior to mid right kidney (coronal image 75), which is too small to characterize but likely represents a small cyst. PELVIC ORGANS/BLADDER: Bladder and uterus are unremarkable. No adnexal masses. PERITONEUM/RETROPERITONEUM: No free air or fluid. LYMPH NODES: No intra-abdominal,retroperitoneal, pelvic or inguinal lymphadenopathy. VESSELS: The celiac trunk,superior and inferior mesenteric and bilateral renal arteries are patent The portal, superior mesenteric and splenic veins are patent. Atherosclerotic calcification of the infrarenal abdominal aorta and proximal iliac vessels. GI TRACT: No bowel dilation or evidence of obstruction. No pericolonic inflammatory changes. Appendix is not visualized, however, no air is seen, periappendiceal inflammatory changes are noted. No wall thickening or focal intraluminal mass. Stomach is unremarkable. BONES AND SOFT TISSUES: No aggressive lytic or suspicious sclerotic lesion. Mildly degenerated discs with associated osteophytosis in the lower thoracic spine. Facet hypertrophy L5-S1. Grossly unremarkable. IMPRESSION: 1. Findings in the lungs suspicious for obstructive small airway disease such as bronchiolitis. No consolidation or effusion. Dilated main pulmonary artery suggests pulmonary hypertension. 2. No acute abdominopelvic abnormalities. Specifically, no acute abnormal findings to explain the patient's abdominal pain. 3. Mild splenomegaly. Indeterminate 1.1 cm hypodense lesion in the spleen. This may represent a small lymphangioma or cyst. 4. 1.2 cm nodule in the left thyroid lobe. Dedicated thyroid ultrasound would be helpful for further evaluation, on a nonemergent basis Signed by: Dr. Yash Robins M.D. on 02/05/2020 6:39 AM
--- NOTE | 2020-02-05 07:04 | NUR ---
Report to Kadie Mcgovern
[2020-02-05] MEDS ORDERED: ALBUTEROL/IPRATROPIUM 3 ML NEB NEB ONE (08:45)
--- NOTE | 2020-02-05 09:11 | NUR ---
spoke with pt
--- NOTE | 2020-02-05 09:13 | NUR ---
called [facility] for transport home. d/c per dr taveras. spoke with pt regarding home discharge. pt agreed to d/c. pt going home on oxyen. states she is on oxygen at home. pt has home oxygen in place already per pt. pt is aaox4. pt awake and alert.
--- NOTE | 2020-02-10 11:07 | NUR ---
Attempt to call pt with COVID results, no answer.
== END 2020-02-05 11:24 | disposition home or self-care (01) ==
LOC: ER 04:45
DX: J44.9 Chronic obstructive pulmonary disease, unspecified (principal); J40 Bronchitis, not specified as acute or chronic; R10.9 Unspecified abdominal pain; R11.2 Nausea with vomiting, unspecified; M79.10 Myalgia, unspecified site; R53.1 Weakness; Z11.59 Encounter for screening for other viral diseases; I10 Essential (primary) hypertension; E11.40 Type 2 diabetes mellitus with diabetic neuropathy, unspecified; E78.5 Hyperlipidemia, unspecified; F41.9 Anxiety disorder, unspecified
CPT/HCPCS: 36415; 71260; 74177; 80053; 82550; 82553; 82805; 83690; 83880; 84484; 85025; 93005; 94640; 99285; J0456; Q9967; U0002

== ENCOUNTER 2020-02-08 04:19 | Emergency (ER) | payer OTHER ==
[~2020-02-08] VITALS: Ht 160 cm; Wt 108.9 kg
--- NOTE | 2020-02-08 05:01 | Emergency Department Note ---
History of Present Illnes History of Present Illness Chief Complaint: General Medicine Complaints History of Present Illness This is a 64 year old female PRESENTS TO THE ER VIA EMS FROM HOME C/O SOB SINCE LAST NIGHT AROUND 2300; PT REPORTS SHE IS ALWAYS SOB BUT WAS WORSE LAST NIGHT; PT ALSO REPORTS VOMITING CLEAR PHLYEM; HX COPD; HOME O2 DEPENDENT, WEARS 4L NC; SPO2 100% ON 4L NC; PT DENIES CP; NAD NOTED AT THIS TIME; PT WAS IN THIS ER 3 DAYS AGO FOR SAME AND HAD COMPLETE WORKUP INCLUDING CT CHEST AND COVID TEST, CT SHOWED COPD AND COVID TEST WAS NEGATIVE . 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 Any updates have been documented here. Past Medical History Recent Fever: No Clinical Suspicion of Infectio: No New/Unexplained Change in Ment: No Past Medical History: Hypertension, Diabetes, COPD, CHF, UTI's, Anxiety, Depression, GERD, Hyperlipedemia, Chronic Back Pain Other Medical History: sleep apnea restless leg syndrome diabetic neuropathy Past Surgical History: Appendectomy Other Surgery: left foot sx Social History Smoking Cessation: Former smoker Alcohol Use: None Any Illegal Drug Use: No Physically hurt or threatened: No Family History Family history of heart diseas: Yes Other family history HTN, DM, CAD Other Last Tetanus: UNK Review of Systems Review of Systems Constitutional: Reports no symptoms EENTM: Reports no symptoms Cardiovascular: Reports no symptoms Respiratory: Reports as per HPI Gastrointestinal: Reports no symptoms Genitourinary: Reports no symptoms Musculoskeletal: Reports no symptoms Integumentary: Reports no symptoms Neurological: Reports no symptoms Psychological: Reports no symptoms Endocrine: Reports no symptoms Hematological/Lymphatic: Reports no symptoms Physical Exam Related Data Allergies: Coded Allergies: Penicillins (Verified Allergy, Unknown, rash, 01/10/19) Triage Vital Signs Vital Signs Date Time Temp Pulse Resp B/P (MAP) Pulse Ox O2 Delivery O2 Flow Rate FiO2 02/08/20 04:47 98.6 73 20 185/82 100 Nasal Cannula 4.0 Vital signs reviewed: Yes Physical Exam CONSTITUTIONAL Constitutional: Present well-developed, Present well-nourished, Present other (NO DISTRESS NOTED) HENT HENT: Present normocephalic, Present atraumatic, Present oropharynx clear/moist, Present nose normal HENT L/R: Present left ext ear normal, Present right ext ear normal EYES Eyes: Reports PERRL, Reports conjunctivae normal NECK Neck: Present ROM normal PULMONARY Pulmonary: Present effort normal, Present other (MILDLY DECREASED BREATH SOUNDS ALL 4 FIGUEROA, NO WHEEZING) CARDIOVASCULAR Cardiovascular: Present regular rhythm, Present heart sounds normal, Present capillary refill normal, Present normal rate GASTROINTESTINAL Abdominal: Present soft, Present nontender, Present bowel sounds normal GENITOURINARY Genitourinary: Present exam deferred SKIN Skin: Present warm, Present dry MUSCULOSKELETAL Musculoskeletal: Present ROM normal NEUROLOGICAL Neurological: Present alert, Present oriented x 3, Present no gross motor or sensory deficits PSYCHOLOGICAL Psychological: Present mood/affect normal, Present judgement normal Results Imaging Imaging results reviewed: Yes Procedures 12 Lead ECG Interpretation ECG Interpretation : ECG: ECG 1 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 CXR, EKG ORDERED TO EVAL FOR PNEUMONIA, MYOCARDIAL INFARCTION, MYOCARDIAL ISCHEMIA, Assessment & Plan Final Impression: (1) COPD (chronic obstructive pulmonary disease) Depart Disposition: HOME, SELF-CARE Last Vital Signs Date Time Temp Pulse Resp B/P (MAP) Pulse Ox O2 Delivery O2 Flow Rate FiO2 02/08/20 04:47 98.6 73 20 185/82 100 Nasal Cannula 4.0 Home Meds Reported Medications Insulin Lispro (HUMALOG) 100 Unit/1 Ml Insuln.pen, 30 UNITS SQ TIDWM 01/21/19 Insulin Glargine (LANTUS 3ML PEN) 100 Units/1 Ml Inj, 60 UNITS SQ HS 01/21/19 Glimepiride (GLIMEPIRIDE) 2 Mg Tablet, 2 MG PO DAILY 01/16/19 Losartan Potassium (LOSARTAN POTASSIUM) 50 Mg Tablet, 50 MG PO DAILY 01/16/19 Potassium Chloride (POTASSIUM CHLORIDE) 10 Meq Tablet.er, 10 MEQ PO DAILY 01/16/19 Spironolactone (SPIRONOLACTONE) 25 Mg Tablet, 25 MG PO DAILY, TAB 06/27/18 Sertraline Hcl (SERTRALINE HCL) 100 Mg Tablet, 100 MG PO DAILY, TAB 06/27/18 Ropinirole Hcl (ROPINIROLE HCL) 1 Mg Tablet, 2 MG PO QID, #30 TAB 12/24/17 Simvastatin (SIMVASTATIN) 40 Mg Tablet, 40 MG PO 2100, #30 TAB 09/28/17 Gabapentin (GABAPENTIN) 300 Mg Capsule, 300 MG PO Q6H, #120 CAP 09/28/17 Furosemide (FUROSEMIDE) 40 Mg Tablet, 40 MG PO BID, #60 TAB 09/28/17 Metoprolol Tartrate (METOPROLOL TARTRATE) 50 Mg Tablet, 50 MG PO BID, TAB 09/28/17 Omeprazole (OMEPRAZOLE) 40 Mg Capsule.dr, 40 MG PO DAILY 09/28/17 Aspirin (ASPIR 81) 81 Mg Tablet.dr, 81 MG PO DAILY 09/28/17 Discontinued Scripts Chlorhexidine Gluconate (HIBICLENS) 120 Ml Liqd, 5 ML TOP TID for 10 Days, #120 ML Prov:ELIESER BACK DO 04/23/19 Bacitracin/Polymyxin B Sulfate (BACITRACIN-POLYMYXIN OINTMENT) 28.35 Gm Oint...g., 2 GM TOP TID for 10 Days, #1 Prov:ELIESER BACK DO 04/23/19 Betamethasone/Clotrimazole (CLOTRIMAZOLE-BETAMETHASONE CRM) 15 Gm Cr, 2 GM TOP TID for 10 Days, EACH Prov:ELIESER BACK DO 04/23/19 JACQUES JANE MD Feb 08, 2020 05:01
--- NOTE | 2020-02-08 06:57 | Diagnostic Imaging Report ---
Examination: Single AP view of the chest. COMPARISON: CT chest 02/05/2020 INDICATION: SOB, IMPRESSION: 1. Lines and Tubes: None 2. Hypoinflated lungs. Patchy interstitial opacities in bilateral lung bases and left mid lung, which may reflect multifocal pneumonia, including viral, in the appropriate clinical setting. 3. Cardiomediastinal silhouette is normal. Central vascular crowding. Prominence of bilateral pulmonary arteries. 4. No acute bony abnormalities. Signed by: Dr. Yash Robins M.D. on 02/08/2020 6:53 AM
[2020-02-08 08:33] VITALS: BP 186/88
== END 2020-02-08 08:34 | disposition home or self-care (01) ==
LOC: ER 05:00
DX: J44.9 Chronic obstructive pulmonary disease, unspecified (principal); R06.02 Shortness of breath; R11.2 Nausea with vomiting, unspecified; E11.65 Type 2 diabetes mellitus with hyperglycemia; I10 Essential (primary) hypertension; I50.9 Heart failure, unspecified; E78.5 Hyperlipidemia, unspecified; F41.9 Anxiety disorder, unspecified; F32.9 Major depressive disorder, single episode, unspecified; G47.30 Sleep apnea, unspecified
CPT/HCPCS: 71045; 93005; 99283

== ENCOUNTER 2020-02-26 12:37 | Inpatient (IN) | payer OTHER ==
[~2020-02-26] VITALS: Ht 160 cm; Wt 108.9 kg
--- OUTSIDE RECORDS SUMMARY | 2020-02-26 13:13 | XMS REPORT | Continuity of Care Document ---
Author Author [facility] t Organization [facility] Address [address] [place] [address] Phone Unavailable Care Team Providers Care Ladle Cleaner Name Role Phone LUCILLE OLIVO MD PCP Treasure JANE Attphys Unavailable RAFAELA MCADAMS Attphys Unavailable Elyse TOLBERT Attphys Unavailable EUNICE, S ELIESER Attphys Unavailable LUCILLE OLIVO Attphys Unavailable Astrid OLIVIA Attphys Unavailable SONAM BENJAMIN Attphys Unavailable RETASoumya KIM Attphys Unavailable Astrid BADLILO Attphys Unavailable Waldo JUAN Admphys Unavailable LUCILLE OLIVO Admphys Unavailable SONAM, BENJAMIN Admphys Unavailable PATEL ORTIZ Admphys Unavailable Payers Payer Name Policy Type Policy Number Effective Date Expiration Date Mary wen [employer] [id number] 2013 00:00:00 [facility] [employer] [id number] 2013 00:00:00 [facility] Problems Condition Name Condition Details Condition Category Status Onset Date Resolution Date Last Treatment Date Treating Clinician Comments Source Uncontrolled type 2 diabetes mellitus Diabetes type 2, uncontrol led Problem Active [facility] Hyperglycemia Hyperglycemia Problem Active [facility] Pneumonia Pneumonia Problem Active [facility] Syncope Syncope Problem Active [facility] Chronic kidney disease CKD (chronic kidney disease) Problem Active [facility] Pre-syncope Syncope, near Problem Active [facility] Poorly controlled diabetes mellitus Poorly controlled diabetes m ellitus Problem Active [facility] Bradycardia with 41-50 beats per minute Bradycardia with 41- 50 beats per minute Problem Active [facility] Congestive heart failure CHF (congestive heart failure) Problem Active [facility] Chronic obstructive pulmonary disease COPD (chronic ob structive pulmonary disease) Problem Active [facility] Volume depletion Volume depletion Problem Active [facility] Allergies, Adverse Reactions, Alerts Allergy Name Allergy Type Status Severity Reaction(s) Onset Date Inacti ve Date Treating Clinician Comments Source Penicillins DA Active SV 2020-01-06 00:00:00 [facility] Penicillins DA Active SV 2019-12-12 00:00:00 [facility] Penicillins DA Active SV 2019-12-03 00:00:00 [facility] Penicillins DA Active SV 2019-11-20 00:00:00 [facility] Penicillins DA Active SV 2019-08-20 00:00:00 [facility] Penicillins DA Active SV 2019-08-06 00:00:00 [facility] Penicillins DA Active SV 2019-05-31 00:00:00 [facility] Penicillins DA Active SV 2019-05-17 00:00:00 [facility] Penicillin Allergy to Substance Active rash 2019-01-10 00:00:00 [facility] Penicillins DA Active SV 2017-11-15 00:00:00 [facility] Medications Ordered Medication Name Filled Medication Name Start Date Stop Da te Current Medication? Ordering Clinician Indication Dosage Frequency Signature (SIG) Comments Components Source Bacitracin/Polymyxin B Sulfate (Bacitrac in-Polymyxin Ointment) 28.35 Gm Oint...g. Bacitracin/Polymyxin B Sulfate (Bacitrac in-Polymyxin Ointment) 28.35 Gm Oint...g. 2019-04-23 00:00:00 Yes Elieser Dawson Md 2 Three Times A Day [facility] Betamethasone/Clotrimazole (Clotrimazole-Betamethasone Crm) 15 Gm Cr Betamethasone/Clotrimazole (Clotrimazole-Betamethasone Crm) 15 Gm Cr 2019-04-23 00:00:00 Yes Elieser Dawson Md 2 Three Times A Day [facility] Chlorhexidine Gluconate (Hibiclens) 120 Ml Liqd Chlorh exidine Gluconate (Hibiclens) 120 Ml Liqd 2019-04-23 00:00:00 Yes Elieser Dawson Md 5 Three Times A Day [facility] Aspirin (Aspir 81) 81 Mg Tablet. Aspirin (Aspir 81) 81 Mg Tablet. Yes 81 Daily [facility] Furosemide 40 Mg Tablet Furosemide 40 Mg Tablet Yes 40 Twice A Day [facility] Gabapentin 300 Mg Capsule Gabapentin 300 Mg Capsule Yes 300 Every 6 Hours [facility] Glimepiride 2 Mg Tablet Glimepiride 2 Mg Tablet Yes 2 Daily [facility] Insulin Glargine (Lantus 3ML Pen) 100 Units/1 Ml Inj I nsulin Glargine (Lantus 3ML Pen) 100 Units/1 Ml Inj Yes 60 Bedtime [facility] Insulin Lispro (Humalog) 100 Unit/1 Ml Insuln.pen Insu mateus Lispro (Humalog) 100 Unit/1 Ml Insuln.pen Yes 30 Three Times Daily With Meals [facility] Losartan Potassium 50 Mg Tablet Losartan Potassium 50 Mg Tablet Yes 50 Daily [facility] Metoprolol Tartrate 50 Mg Tablet Metoprolol Tartrate 50 Mg Tablet Yes 50 Twice A Day [facility] Omeprazole 40 Mg Capsule. Omeprazole 40 Mg Capsule. Yes 40 Daily [facility] Potassium Chloride 10 Meq Tablet.er Potassium Chloride 10 Meq Tablet. er Yes 10 Daily [facility] Ropinirole Hcl 1 Mg Tablet Ropinirole Hcl 1 Mg Tablet Yes 2 Four Times Daily [facility] Sertraline Hcl 100 Mg Tablet Sertraline Hcl 100 Mg Tablet Y es 100 Daily [facility] Simvastatin 40 Mg Tablet Simvastatin 40 Mg Tablet Yes 40 Today At 9:00PM [facility] Spironolactone 25 Mg Tablet Spironolactone 25 Mg Tablet Yes 25 Daily [facility] Insulin Human Regular (Humulin R U-500*) 500 Unit/1 Ml Inj, 50 Subcutaneously Insulin Human Regular (Humulin R U-500*) 500 Unit/1 Ml Inj, 50 Subcutaneously 2019-01-21 00:00:00 No 50 Three Times A Day [facility] Albuterol Sulfate (Proair Hfa Inhaler*) 8.5 Gm Inh, 2 Inh Albuterol Sulfate (Proair Hfa Inhaler*) 8.5 Gm Inh, 2 Inh 2019-01-16 00:00:00 No 2 Four Times Daily as needed for Shortness Of Breath [facility] Fenofibrate Nanocrystallized (Fenofibrate) 145 Mg Tabl et, 145 Mg Oral Fenofibrate Nanocrystallized (Fenofibrate) 145 Mg Tablet, 145 Mg Oral 2019-01-16 00:00:00 No 145 Daily [facility] Sildenafil Citrate (Revatio) 20 Mg Tab, 20 Mg Oral Calista denafil Citrate (Revatio) 20 Mg Tab, 20 Mg Oral 2019-01-16 00:00:00 No 20 Th ree Times A Day [facility] Solifenacin Succinate (Vesicare) 5 Mg Tablet, 10 Mg Or al Solifenacin Succinate (Vesicare) 5 Mg Tablet, 10 Mg Oral 2019-01-16 00:00:00 No 10 Bedtime [facility] Benzonatate (Tessalon Perle) 100 Mg Capsule, 100 Mg Or al Benzonatate (Tessalon Perle) 100 Mg Capsule, 100 Mg Oral 2019-01-13 00:00:00 No 100 Every 12 Hours [facility] Glimepiride 2 Mg Tablet, 4 Mg Oral Glimepiride 2 Mg Tablet, 4 Mg Oral 2019-01-13 00:00:00 No 4 Twice A Day [facility] Furosemide (Lasix) 40 Mg Tablet, 40 Mg Oral Furosemide (Lasix) 40 Mg Tablet, 40 Mg Oral 2018-07-03 00:00:00 No 40 Twice A Day [facility] Paroxetine Hcl 20 Mg Tablet, 40 Mg Oral Paroxetine Hcl 20 Mg Tablet, 40 Mg Oral 2018-06-27 00:00:00 No 40 Daily [facility] Tramadol Hcl (Ultram 50MG*) 50 Mg Tab, 50 Mg Oral Tram adol Hcl (Ultram 50MG*) 50 Mg Tab, 50 Mg Oral 2018-06-27 00:00:00 No 50 Every 12 Hours [facility] Insulin Regular, Human (Humulin R) 100 Unit/1 Ml Vial, 20 Units Subcutaneously Insulin Regular, Human (Humulin R) 100 Unit/1 Ml Vial, 20 Units Subcutaneously 2017-12-28 00:00:00 No 20 Twice A Day [facility] Insulin Detemir (Levemir) 100 Unit/1 Ml Vial, Insulin Detemir (Levemir) 100 Unit/1 Ml Vial, 2017-10-31 00:00:00 [facility] Insulin Aspart (Novolog Mix 70-30 Vial) 100 Units/Ml M l, Insulin Aspart (Novolog Mix 70-30 Vial) 100 Units/Ml Ml, 2017-10-11 00:00:00 [facility] Metformin Hcl (Glucophage) 500 Mg Tablet, Metformin Hc l (Glucophage) 500 Mg Tablet, 2017-09-28 00:00:00 [facility] Metoprolol Succinate (Toprol Xl) 50 Mg Tab.er.24h, 50 Oral Metoprolol Succinate (Toprol Xl) 50 Mg Tab.er.24h, 50 Oral 2017-09-28 00:00:00 No 50 Twice A Day for Elevated Blood Pressure [facility] Procedures Procedure Date / Time Performed Performing Clinician [facility] e X-ray of chest, two views 2019-01-10 00:00:00 BOYD NICHOLS [facility] Computed tomography of brain without radiopaque contrast 201 03-04-19 00:00:00 EUNICEELIESER NOLAN [facility] Computed tomography of cervical spine without contrast 07-11 00:00:00 EUNICE ELIESER S [facility] CT maxillofacial area wo contrast 2018-07-11 00:00:00 JEAN DAWSON [facility] X-ray of chest, single view 2018-07-01 00:00:00 BENJAMIN MASTERS [facility] X-ray of chest, two views 2018-06-27 00:00:00 TINA JANE [facility] Encounters Start Date/Time End Date/Time Encounter Type Admission Type [facility] Care Department Encounter ID Source 2019-04-27 02:46:00 2019-04-27 04:46:00 Departed Emergency Room 1 JANEJACQUES BURLESON [facility] [id number] [facility] 2019-04-23 20:19:00 2019-04-23 20:58:00 Departed Emergency Room [facility] [id number] [facility] 2019-04-17 20:48:00 2019-04-17 21:35:00 Departed Emergency Room [facility] [id number] [facility] 2019-03-15 01:19:00 2019-03-15 03:30:00 Departed Emergency Room 1 JANEJACQUES BURLESON [facility] [id number] [facility] 2019-02-23 23:49:00 2019-02-24 05:38:00 Departed Emergency Room 1 JANEJACQUES BURLESON [facility] [id number] [facility] 2019-01-18 14:54:00 2019-01-21 16:15:00 Discharged Inpatient 1 JACQUES JANE [facility] [id number] [facility] 2019-01-11 19:31:00 2019-01-13 15:36:00 Discharged Inpatient (obs) 1 FLO TOLBERT [facility] [id number] [facility] 2019-01-10 15:21:00 2019-01-10 19:19:00 Departed Emergency Room 1 [facility] [id number] [facility] 2018-07-30 16:40:00 2018-07-31 01:45:00 Departed Emergency Room 1 [facility] [id number] [facility] 2018-07-11 10:03:00 2018-07-11 14:40:00 Departed Emergency Room 1 ELIESER DAWSON [facility] [id number] [facility] 2018-07-01 09:28:00 2018-07-03 14:06:00 Discharged Inpatient 1 LUCILLE OLIVO [facility] [id number] [facility] 2018-05-30 19:52:00 2018-05-30 20:30:00 Departed Emergency Room [facility] [id number] [facility] 2018-04-03 01:16:00 2018-04-03 04:19:00 Departed Emergency Room 1 ROBERT OLIVIA [facility] [id number] [facility] 2018-02-04 11:46:00 2018-02-07 13:55:00 Discharged Inpatient (obs) 1 ROBERT OLIVIA [facility] [id number] [facility] 2018-01-31 22:01:00 2018-02-01 02:14:00 Departed Emergency Room 1 [facility] [id number] [facility] 2017-12-24 00:08:00 2017-12-28 16:18:00 Discharged Inpatient (obs) 1 BENJAMIN MASTERS [facility] [id number] [facility] 2017-10-31 01:50:00 2017-10-31 03:18:00 Departed Emergency Room ER JACQUES JANE [facility] [id number] [facility] 2017-10-25 22:28:00 2017-10-26 00:09:00 Departed Emergency Room [facility] [id number] [facility] 2017-10-11 23:19:00 2017-10-12 04:45:00 Departed Emergency Room ER FLO TOLBERT [facility] [id number] [facility] 2017-10-11 07:38:00 2017-10-11 10:17:00 Departed Emergency Room ER JEFFREY MCDUFFIE [facility] [id number] [facility] 2017-09-25 14:18:00 2017-09-29 13:30:00 Discharged Inpatient ER JAYASHREE BADILLO [facility] [id number] [facility] 2017-08-24 13:00:00 2017-08-26 16:20:00 Discharged Inpatient (obs) ER FLO TOLBERT [facility] [id number] [facility] 2017-04-17 23:09:00 2017-04-18 03:16:00 Departed Emergency Room [facility] [id number] [facility] 2017-02-09 21:43:00 2017-02-10 02:38:00 Departed Emergency Room [facility] [id number] [facility] 2016-12-29 19:19:00 2016-12-30 01:00:00 Departed Emergency Room [facility] [id number] [facility] Results Test Description Test Time Test Comments Results Result Comments Source CHEST SINGLE (PORTABLE) 2020-02-08 06:52:00 [facility] [address] [address] Patient Name: KALYANI TALAVERA MR #: [id number] : 1955 Age/Sex: 64/F Req #: [id number] Adm Physician: Ordered by: JACQUES JANE MD Report #: [id number] Location: ER Room/Bed: Procedure: [id number] DX/CHEST SINGLE (PORTABLE) Exam Date: 02/08/20 Exam Time: 0640 REPORT STATUS: Signed Examination: Single AP view of the chest. COMPARISON: CT chest 02/05/2020 INDICATION: SOB, IMPRESSION: 1. Lines and Tubes: None 2. Hypoinflated lungs. Patchy interstitial opacities in bilateral lung bases and left mid lung, which may reflect multifocal pneumonia, including viral, in the appropriate clinical setting. 3. Cardiomediastinal silhouette is normal. Central vascular crowding. Prominence of bilateral pulmonary arteries. 4. No acute bony abnormalities. Signed by: Dr. Yash Joseph M.D. on 02/08/2020 6:53 AM Dictated By: YASH JOSEPH MD 2 Transcribed By: JIM on 02/08/20652 COPY TO: JACQUES JANE MD CT CHEST W 2020-02-05 06:23:00 [address] [address] Patient Name: KALYANI TALAVERA MR #: [id number] : 1955 Age/Sex: 64/F Req #: [id number] Adm Physician: Ordered by: RAFAELA MCADAMS DO Report #: [id number] Location: ER Room/Bed: Procedure: [id number] CT/CT CHEST W Exam Date: 02/05/20 Exam Time: 0559 REPORT STATUS: Signed ADDENDUM #1 Addendum: GI TRACT section should read as follows: GI TRACT: No bowel dilation or evidence of obstruction. No pericolonic inflammatory changes. Appendix is not visualized, however, no pericecal or periappendiceal inflammatory changes are noted. No wall thickening or focal intraluminal mass. Stomach is unremarkable. Signed by: Dr. Yash Joseph M.D. on 02/05/2020 6:44 AM ORIGINAL REPORT EXAMINATION: CT of the chest, abdomen and pelvis with contrast. TECHNIQUE: Spiral CT images of the chest, abdomen and pelvis were performed from the lung apices to the lesser trochanters after the intravenous administration of 100 cc of Isovue 370 and the oral administration of water. Coronal and sagittal reformatted images were obtained. COMPARISON: None. CLINICAL HISTORY:Bilateral shoulder pain 2 days ago. No history of trauma. History of COPD. Diffuse abdominal pain for 2 days DISCUSSION: CHEST: LINES/TUBES: None. LUNGS AND AIRWAYS: Mildly increased attenuation of the pulmonary parenchyma secondary to scan acquired in partial expiratory phase. Mosaic attenuation of the upper and lower lobes, with decrease caliber of vessels in lucent areas compared to the more attenuated areas. Atelectatic changes in the right middle lobe and right lower lobe secondary to eventration of the right hemidiaphragm. No pulmonary nodules. No masses or consolidation. Airways are clear, without endobronchial lesions. PLEURA: The pleural spaces are clear. HEART AND MEDIASTINUM: 1.2 cm hypodense nodule in the posterior left thyroid lobe (series 3, image 2). Heart size is normal. No pericardial effusion. Mild atherosclerotic calcification of the coronary arteries and aortic valves and thoracic aortic arch. Main pulmonary artery measures 3.4 cm LYMPH NODES: Enlarged right lower paratracheal lymph node which measures 1.2 cm in short axis. No other mediastinal or hilar or axillary adenopathy. BONES AND SOFT TISSUES: No bony destructive lesions. No soft tissue abnormalities. ABDOMEN/PELVIS: HEPATOBILIARY: No focal hepatic lesions. No intra or extrahepatic biliary ductal dilation. GALLBLADDER: No radio-opaque stones or sludge. No wall thickening. SPLEEN: Mild splenomegaly, measuring 14.2 cm in craniocaudal diameter. Ill-defined 1.1 cm hypodense lesion in the spleen (series 3, image 53) PANCREAS: No focal masses or ductal dilatation. ADRENALS: No adrenal nodules. KIDNEYS/URETERS: No hydronephrosis, stones, or solid mass lesions. 6-7 millimeter hypodense lesion in superior to mid right kidney (coronal image 75), which is too small to characterize but likely represents a small cyst. PELVIC ORGANS/BLADDER: Bladder and uterus are unremarkable. No adnexal masses. PERITONEUM/RETROPERITONEUM: No free air or fluid. LYMPH NODES: No intra-abdominal,retroperitoneal, pelvic or inguinal lymphadenopathy. VESSELS: The celiac trunk,superior and inferior mesenter ic and bilateral renal arteries are patent The portal, superior mesenteric and splenic veins are patent. Atherosclerotic calcification of the infrarenal abdominal aorta and proximal iliac vessels. GI TRACT: No bowel dilation or evidence of obstruction. No pericolonic inflammatory changes. Appendix is not visualized, however, no air is seen, periappendiceal inflammatory changes are noted. No wall thickening or focal intraluminal mass. Stomach is unremarkable. BONES AND SOFT TISSUES: No aggressive lytic or suspicious sclerotic lesion. Mildly degenerated discs with associated osteophytosis in the lower thoracic spine. Facet hypertrophy L5-S1. Grossly unremarkable. IMPRESSION: 1. Findings in the lungs suspicious for obstructive small airway disease such as bronchiolitis. No consolidation or effusion. Dilated main pulmonary artery suggests pulmonary hypertension. 2. No acute abdominopelvic abnormalities. Specifically, no acute abnormal findings to exp monae the patient's abdominal pain. 3. Mild splenomegaly. Indeterminate 1.1 cm hypodense lesion in the spleen. This may represent a small lymphangioma or cyst. 4. 1.2 cm nodule in the left thyroid lobe. Dedicated thyroid ultrasound would be helpful for further evaluation, on a nonemergent basis Signed by: Dr. Yash Joseph M.D. on 02/05/2020 6:39 AM Dictated By: YASH JOSEPH MD [id number] Transcribed By: JIM on 02/05/20 0639 COPY TO: RAFAELA MCADAMS DO CT ABDOMEN/PELVIS W 2020-02-05 06:23:00 [address] [address] Patient Name: KALYANI TALAVERA MR #: [id number] : 1955 Age/Sex: 64/F Req #: [id number] Adm Physician: Ordered by: RAFAELA MCADAMS DO Report #: [id number] Location: ER Room/Bed: Procedure: [id number] CT/CT ABDOMEN/PELVIS W Exam Date: 02/05/20 Exam Time: 0559 REPORT STATUS: Signed ADDENDUM #1 Addendum: GI TRACT section should read as follows: GI TRACT: No bowel dilation or evidence of obstruction. No pericolonic inflammatory changes. Appendix is not visualized, however, no pericecal or periappendiceal inflammat ory changes are noted. No wall thickening or focal intraluminal mass. Stomach is unremarkable. Signed by: Dr. Yash oJseph M.D. on 02/05/2020 6:44 AM ORIGINAL REPORT EXAMINATION: CT of the chest, abdomen and pelvis with contrast. TECHNIQUE: Spiral CT images of the chest, abdomen and pelvis were performed from the lung apices to the lesser trochanters after the intravenous administration of 100 cc of Isovue 370 and the oral administration of water. Coronal and sagittal reformatted images were obtained. COMPARISON: None. CLINICAL HISTORY:Bilateral shoulder pain 2 days ago. No history of trauma. History of COPD. Diffuse abdominal pain for 2 days DISCUSSION: CHEST: LINES/TUBES: None. LUNGS AND AIRWAYS: Mildly increased attenuation of the pulmonary parenchyma secondary to scan acquired in partial expiratory phase. Mosaic attenuation of the upper and lower lobes, with decrease caliber of vessels in lucent areas compared to the more attenuated areas. Atelectatic changes in the right middle lobe and right lower lobe secondary to eventration of the right hemidiaphragm. No pulmonary nodules. No masses or consolidation. Airways are clear, without endobronchial lesions. PLEURA: The pleural spaces are clear. HEART AND MEDIASTINUM: 1.2 cm hypodense nodule in the posterior left thyroid lobe (series 3, image 2). Heart size is normal. No pericardial effusion. Mild atherosclerotic calcification of the coronary arteries and aortic valves and thoracic aortic arch. Main pulmonary artery measures 3.4 cm LYMPH NODES: Enlarged right lower paratracheal lymph node which measures 1.2 cm in short axis. No other mediastinal or hilar or axillary adenopathy. BONES AND SOFT TISSUES: No bony destructive lesions. No soft tissue abnormalities. ABDOMEN/PELVIS: HEPATOBILIARY: No focal hepatic lesions. No intra or extrahepatic biliary ductal dilation. GALLBLADDER: No radio-opaque stones or sludge. No wall thickening. SPLEEN: Mild splenomegaly, measuring 14.2 cm in craniocaudal diameter. Ill-defined 1.1 cm hypodense lesion in the spleen (series 3, image 53) PANCREAS: No focal masses or ductal dilatation. ADRENALS: No adrenal nodules. KIDNEYS/URETERS: No hydronephrosis, stones, or solid mass lesions. 6-7 millimeter hypodense lesion in superior to mid right kidney (coronal image 75), which is too small to characterize but likely represents a small cyst. PELVIC ORGANS/BLADDER: Bladder and uterus are unremarkable. No adnexal masses. PERITONEUM/RETROPERITONEUM: No free air or fluid. LYMPH NODES: No intra-abdominal,retroperitoneal, pelvic or inguinal lymphadenopathy. VESSELS: The celiac trunk,superior and inferior m esenteric and bilateral renal arteries are patent The portal, superior mesenteric and splenic veins are patent. Atherosclerotic calcification of the infrarenal abdominal aorta and proximal iliac vessels. GI TRACT: No bowel dilation or evidence of obstruction. No pericolonic inflammatory changes. Appendix is not visualized, however, no air is seen, periappendiceal inflammatory changes are noted. No wall thickening or focal intraluminal mass. Stomach is unremarkable. BONES AND SOFT TISSUES: No aggressive lytic or suspicious sclerotic lesion. Mildly degenerated discs with associated osteophytosis in the lower thoracic spine. Facet hypertrophy L5-S1. Grossly unremarkable. IMPRESSION: 1. Findings in the lungs suspicious for obstructive small airway disease such as bronchiolitis. No consolidation or effusion. Dilated main pulmonary artery suggests pulmonary hypertension. 2. No acute abdominopelvic abnormalities. Specifically, no acute abnormal findings to explain the patient's abdominal pain. 3. Mild splenomegaly. Indeterminate 1.1 cm hypodense lesion in the spleen. This may represent a small lymphangioma or cyst. 4. 1.2 cm nodule in the left thyroid lobe. Dedicated thyroid ultrasound would be helpful for further evaluation, on a nonemergent basis Signed by: Dr. Yash Joseph M.D. on 02/05/2020 6:39 AM Dictated By: YASH JOSEPH MD [id number] Transcribed By: JIM on 02/05/20 0639 COPY TO: RAFAELA MCADAMS DO GLUBED 2020-01-28 15:32:00 Test Item GLUBED (test code = GLUBED) 386 mg/dL 74-106 H Performed by certified glue spreading machine operator at [facility] [id number] 11:50:00* Test Item Value Reference Range Interpretation Comments GLUBED (test code = GLUBED) 247 mg/dL 74-106 H Performed by certified glue spreading machine operator at [facility] [id number] 08:17:00* Test Item Value Reference Range Interpretation Comments GLUBED (test code = GLUBED) 226 mg/dL 74-106 H Performed by certified glue spreading machine operator at [facility] BASIC METABOLIC [id number] 06:17:00* Test Item Value Reference Range Interpretation Comments SODIUM (test code = NA) 140 mmol/L 136-145 N POTASSIUM (test code = K) 4.2 mmol/L 3.5-5.1 N CHLORIDE (test code = CL) 103.0 mmol/L 98-107 N CARBON DIOXIDE (test code = CO2) 28.0 mmol/L 21-32 N ANION GAP (test code = GAP) 13.2 10-20 N GLUCOSE (test code = GLU) 206 mg/dL 74-106 H BLOOD UREA NITROGEN (test code = BUN) 27 mg/dL 7-18 H GLOMERULAR FILTRATION RATE (test code = GFR) > 60 mL/min >=60 Estimated GFR by using Modified MDRD formula.Chronic kidney disease is defined as either kidney damageor GFR <60 mL/min/1.73 m2 for >3 months. CREATININE (test code = CREAT) 0.90 mg/dL 0.55-1.02 N Note change in reference range due to change in reagent. BUN/CREATININE RATIO (test code = BUN/CREA) 30.2 10-20 H CALCIUM (test code = CA) 8.8 mg/dL 8.5-10.1 N BASIC METABOLIC [id number] 05:54:00* Test Item Value Reference Range Interpretation Comments SODIUM (test code = NA) 140 mmol/L 136-145 N POTASSIUM (test code = K) 4.2 mmol/L 3.5-5.1 N CHLORIDE (test code = CL) 103.0 mmol/L 98-107 N CARBON DIOXIDE (test code = CO2) mmol/L 21-32 ANION GAP (test code = GAP) 10-20 GLUCOSE (test code = GLU) mg/dL 74-106 BLOOD UREA NITROGEN (test code = BUN) mg/dL 7-18 GLOMERULAR FILTRATION RATE (test code = GFR) mL/min >=60 CREATININE (test code = CREAT) mg/dL 0.55-1.02 BUN/CREATININE RATIO (test code = BUN/CREA) 10-20 CALCIUM (test code = CA) mg/dL 8.5-10.1 [id number] 20:08:00* Test Item Value Reference Range Interpretation Comments GLUBED (test code = GLUBED) 161 mg/dL 74-106 H Performed by certified glue spreading machine operator at [facility] [id number] 16:30:00* Test Item Value Reference Range Interpretation Comments GLUBED (test code = GLUBED) 120 mg/dL 74-106 H Performed by certified glue spreading machine operator at [facility] [id number] 11:27:00* Test Item Value Reference Range Interpretation Comments GLUBED (test code = GLUBED) 164 mg/dL 74-106 H Performed by certified glue spreading machine operator at [facility] - XR CHEST 1 [id number] 09:27:00 FAX: Jasen Frias MD [phone] [place]: St: ADM FAX: Rigo Mccormick MD [phone] FAX: Benjamin Francis MD [phone] Name: KALYANI TALAVERA [facility] : 1955 Age/S: 64/F [address] [facility] Unit #: [id number] Loc: [id number] [place] [address] Phys: Rigo Alexander MD Acct: [id number] Dis Date: Status: ADM IN [facility] #: [phone] Exam Date: 01/27/2020 1040 FAX #: [phone] Reason: chf EXAMS: CPT CODE: [id number] XR CHEST 1 V 08643 HISTORY: CHF. COMPARISON: January 24, 2020. Location: [facility]. Suboptimal inspiration. Crowding of bronchovascular markings. Dependent changes. Vague groundglass opacities is nonspecific finding. Cardiomegaly. IMPRESSION: No infiltrates or congestion. Va raquel groundglass opacities. These are unchanged. Electronical ly Signed by Gregory Chowdhury on 01/27/2020 at 0927 Rep orted and signed by: Solomon Chowdhury M.D. CC: Shane Coronado MD; Rigo Alexander MD; Benjamin Masters Technologist: Ana Christianson RT(R); Donna Childers RT(R) [facility] Date/Time/By: 01/27/2020 (0927) : By: aniyah [email or web address] Orig Print D/T: S: 01/27/2020 (1041) P AGE 2 Signed Report GLUBED 2020-01-27 07:58:00* Test Item Value Reference Range Interpretation Comments GLUBED (test code = GLUBED) 127 mg/dL 74-106 H Performed by certified glue spreading machine operator at [facility] [id number] 07:40:00* Test Item Value Reference Range Interpretation Comments GLUBED (test code = GLUBED) 116 mg/dL 74-106 H Performed by certified glue spreading machine operator at [facility] [id number] 22:23:00* Test Item Value Reference Range Interpretation Comments GLUBED (test code = GLUBED) 259 mg/dL 74-106 H Performed by certified glue spreading machine operator at [facility] [id number] 17:10:00* Test Item Value Reference Range Interpretation Comments GLUBED (test code = GLUBED) 219 mg/dL 74-106 H Performed by certified glue spreading machine operator at [facility] [id number] 11:45:00* Test Item Value Reference Range Interpretation Comments GLUBED (test code = GLUBED) 265 mg/dL 74-106 H Performed by certified glue spreading machine operator at [facility] [id number] 08:52:00* Test Item Value Reference Range Interpretation Comments GLUBED (test code = GLUBED) 317 mg/dL 74-106 H Performed by certified glue spreading machine operator at [facility] [id number] 23:49:00* Test Item Value Reference Range Interpretation Comments GLUBED (test code = GLUBED) 327 mg/dL 74-106 H Performed by certified glue spreading machine operator at [facility] [id number] 22:15:00* Test Item Value Reference Range Interpretation Comments GLUBED (test code = GLUBED) 339 mg/dL 74-106 H Performed by certified glue spreading machine operator at [facility] [id number] 19:59:00* Test Item Value Reference Range Interpretation Comments GLUBED (test code = GLUBED) 497 mg/dL 74-106 H Performed by certified glue spreading machine operator at [facility] [id number] 18:29:00* Test Item Value Reference Range Interpretation Comments GLUBED (test code = GLUBED) > 500 mg/dL 74-106 HH Per[facility] certified glue spreading [facility]~ [id number] 16:00:00* Test Item Value Reference Range Interpretation Comments GLUBED (test code = GLUBED) 377 mg/dL 74-106 H Performed by certified glue spreading machine operator at [facility] [id number] 12:09:00* Test Item Value Reference Range Interpretation Comments GLUBED (test code = GLUBED) 441 mg/dL 74-106 H [facility] certified glue spreading [facility]~ BASIC METABOLIC [id number] 08:19:00* Test Item Value Reference Range Interpretation Comments SODIUM (test code = NA) 137 mmol/L 136-145 N POTASSIUM (test code = K) 4.1 mmol/L 3.5-5.1 N CHLORIDE (test code = CL) 102.0 mmol/L 98-107 N CARBON DIOXIDE (test code = CO2) 24.0 mmol/L 21-32 N ANION GAP (test code = GAP) 15.1 10-20 N GLUCOSE (test code = GLU) 469 mg/dL 74-106 H BLOOD UREA NITROGEN (test code = BUN) 31 mg/dL 7-18 H GLOMERULAR FILTRATION RATE (test code = GFR) > 60 mL/min >=60 Estimated GFR by using Modified MDRD formula.Chronic kidney disease is defined as either kidney damageor GFR <60 mL/min/1.73 m2 for >3 months. CREATININE (test code = CREAT) 0.90 mg/dL 0.55-1.02 N Note change in reference range due to change in reagent. BUN/CREATININE RATIO (test code = BUN/CREA) 35.5 10-20 H CALCIUM (test code = CA) 8.7 mg/dL 8.5-10.1 N BASIC METABOLIC [id number] 08:11:00* Test Item Value Reference Range Interpretation Comments SODIUM (test code = NA) 137 mmol/L 136-145 N POTASSIUM (test code = K) 4.1 mmol/L 3.5-5.1 N CHLORIDE (test code = CL) 102.0 mmol/L 98-107 N CARBON DIOXIDE (test code = CO2) mmol/L 21-32 ANION GAP (test code = GAP) 10-20 GLUCOSE (test code = GLU) mg/dL 74-106 BLOOD UREA NITROGEN (test code = BUN) mg/dL 7-18 GLOMERULAR FILTRATION RATE (test code = GFR) mL/min >=60 CREATININE (test code = CREAT) mg/dL 0.55-1.02 BUN/CREATININE RATIO (test code = BUN/CREA) 10-20 CALCIUM (test code = CA) mg/dL 8.5-10.1 [id number] 08:00:00* Test Item Value Reference Range Interpretation Comments GLUBED (test code = GLUBED) 493 mg/dL 74-106 H [facility] certified glue spreading [facility] [id number] 02:13:00* Test Item Value Reference Range Interpretation Comments GLUBED (test code = GLUBED) > 500 mg/dL 74-106 HH Per[facility] by certified glue spreading machine [facility]~ [id number] 02:13:00* Test Item Value Reference Range Interpretation Comments GLUBED (test code = GLUBED) > 500 mg/dL 74-106 HH Performed by certified glue spreading machine [facility]~ [id number] 21:24:00* Test Item Value Reference Range Interpretation Comments GLUBED (test code = GLUBED) 497 mg/dL 74-106 H Performed by certified glue spreading machine operator at [facility] [id number] 21:24:00* Test Item Value Reference Range Interpretation Comments GLUBED (test code = GLUBED) > 500 mg/dL 74-106 HH Performed by certified glue spreading machine [facility] BASIC METABOLIC [id number] 17:04:00* Test Item Value Reference Range Interpretation Comments SODIUM (test code = NA) 137 mmol/L 136-145 N POTASSIUM (test code = K) 5.0 mmol/L 3.5-5.1 N CHLORIDE (test code = CL) 104.0 mmol/L 98-107 N CARBON DIOXIDE (test code = CO2) 20.0 mmol/L 21-32 L ANION GAP (test code = GAP) 18.0 10-20 N GLUCOSE (test code = GLU) 445 mg/dL 74-106 H BLOOD UREA NITROGEN (test code = BUN) 30 mg/dL 7-18 H GLOMERULAR FILTRATION RATE (test code = GFR) > 60 mL/min >=60 Estimated GFR by using Modified MDRD formula.Chronic kidney disease is defined as either kidney damageor GFR <60 mL/min/1.73 m2 for >3 months. CREATININE (test code = CREAT) 0.90 mg/dL 0.55-1.02 N Note change in reference range due to change in reagent. BUN/CREATININE RATIO (test code = BUN/CREA) 33.8 10-20 H CALCIUM (test code = CA) 8.6 mg/dL 8.5-10.1 N BASIC METABOLIC [id number] 16:49:00* Test Item Value Reference Range Interpretation Comments SODIUM (test code = NA) 137 mmol/L 136-145 N POTASSIUM (test code = K) 5.0 mmol/L 3.5-5.1 N CHLORIDE (test code = CL) 104.0 mmol/L 98-107 N CARBON DIOXIDE (test code = CO2) mmol/L 21-32 ANION GAP (test code = GAP) 10-20 GLUCOSE (test code = GLU) mg/dL 74-106 BLOOD UREA NITROGEN (test code = BUN) mg/dL 7-18 GLOMERULAR FILTRATION RATE (test code = GFR) mL/min >=60 CREATININE (test code = CREAT) mg/dL 0.55-1.02 BUN/CREATININE RATIO (test code = BUN/CREA) 10-20 CALCIUM (test code = CA) mg/dL 8.5-10.1 [id number] 12:24:00* Test Item Value Reference Range Interpretation Comments GLUBED (test code = GLUBED) 344 mg/dL 74-106 H Performed by certified glue spreading machine operator at [facility] CBC W/AUTO [id number] 08:32:00* Test Item Value Reference Range Interpretation Comments WHITE BLOOD CELL (test code = WBC) 5.9 K/mm3 4.5-12.5 N RED BLOOD CELL (test code = RBC) 3.82 mill/mm3 3.7-5.2 N HEMOGLOBIN (test code = HGB) 8.6 gram/dL 11.5-15.5 L HEMATOCRIT (test code = HCT) 30.1 % 36.0-46.0 L MEAN CELL VOLUME (test code = MCV) 78.8 fL 80-98 L MEAN CELL HGB (test code = MCH) 22.5 picogram 27.0-33.0 L MEAN CELL HGB CONCETRATION (test code = MCHC) 28.6 gram/dL 33.0-36. 0 L RED CELL DISTRIBUTION WIDTH (test code = RDW) 17.4 % 11.6-16. 2 H RED CELL DISTRIBUTION WIDTH SD (test code = RDW-SD) 49.2 fL 37 .0-51.0 N PLATELET COUNT (test code = PLT) 153 K/mm3 150-450 N MEAN PLATELET VOLUME (test code = MPV) 10.6 fL 6.7-11.0 N IMMATURE GRANULOCYTE % (test code = IG%) 2.0 % 0.0-5.0 N NUCLEATED RBC % (test code = NRBC%) 0.0 % 0-0 N NEUTROPHIL # (test code = NT#) 4.19 K/mm3 1.8-7.7 N IMMATURE GRANULOCYTE # (test code = IG#) 0.12 x10 3/uL 0-0.03 H LYMPHOCYTE # (test code = LY#) 1.05 K/mm3 1.0-5.0 N MONOCYTE # (test code = MO#) 0.28 K/mm3 0-0.8 N EOSINOPHIL # (test code = EO#) 0.20 K/mm3 0.0-0.5 N BASOPHIL # (test code = BA#) 0.04 K/mm3 0.0-0.2 N NUCLEATED RBC # (test code = NRBC#) 0.00 K/mm3 0.0-0.1 N MANUAL DIFF REQUIRED (test code = MDIFF) NO, ONLY SCAN NEEDED DIFFERENTIAL [id number] 08:32:00* Test Item Value Reference Range Interpretation Comments STAIN ACCEPTABILITY (test code = STN ACCEPTABLE) STAIN ACCEPTABLE POLYCHROMASIA (test code = POLC) 1+ HYPOCHROMIA (test code = HYPO) 1+ POIKILOCYTOSIS (test code = POIK) 1+ ANISOCYTOSIS (test code = ANISO) 1+ PLATELET ESTIMATE (test code = PLTEST) ADEQUATE PLATELET MORPHOLOGY (test code = PLTMORPH) NORMAL URINALYSIS [id number] 07:09:00* Test Item Value Reference Range Interpretation Comments UA COLOR (test code = COLU) STRAW YELLOW UA APPEARANCE (test code = APPU) CLEAR CLEAR UA GLUCOSE DIPSTICK (test code = DGLUU) 300-500 (3+) mg/dL NEGATIVE UA BILIRUBIN DIPSTICK (test code = BILU) NEGATIVE NEGATIVE UA KETONE DIPSTICK (test code = KETU) NEGATIVE mg/dL NEGATIVE UA SPECIFIC GRAVITY (test code = SGU) 1.015 1.001-1.035 UA BLOOD DIPSTICK (test code = MONICA) NEGATIVE NEGATIVE UA PH DIPSTICK (test code = VIVEK) 5.5 5.0-8.0 UA PROTEIN DIPSTICK (test code = PROU) NEGATIVE mg/dL Neg-15 UA UROBILINIOGEN DIPSTICK (test code = URO) 0.2 mg/dL 0.0-0.2 UA NITRITE DIPSTICK (test code = GOYO) NEGATIVE NEGATIVE UA LEUKOCYTE ESTERASE W REFLEX (test code = LEUUR) NEGATIVE NEG ATIVE UA WBC (test code = WBCU) 0-5 per HPF 0-5 UA EPITHELIAL CELLS (test code = EPIU) FEW per HPF FEW Urine Source? Clean CatchURINALYSIS [id number] 07:05:00* Test Item Value Reference Range Interpretation Comments UA COLOR (test code = COLU) STRAW YELLOW UA APPEARANCE (test code = APPU) CLEAR CLEAR UA GLUCOSE DIPSTICK (test code = DGLUU) 300-500 (3+) mg/dL NEGATIVE UA BILIRUBIN DIPSTICK (test code = BILU) NEGATIVE NEGATIVE UA KETONE DIPSTICK (test code = KETU) NEGATIVE mg/dL NEGATIVE UA SPECIFIC GRAVITY (test code = SGU) 1.015 1.001-1.035 UA BLOOD DIPSTICK (test code = MONICA) NEGATIVE NEGATIVE UA PH DIPSTICK (test code = VIVEK) 5.5 5.0-8.0 UA PROTEIN DIPSTICK (test code = PROU) NEGATIVE mg/dL Neg-15 UA UROBILINIOGEN DIPSTICK (test code = URO) 0.2 mg/dL 0.0-0.2 UA NITRITE DIPSTICK (test code = GOYO) NEGATIVE NEGATIVE UA LEUKOCYTE ESTERASE W REFLEX (test code = LEUUR) NEGATIVE NEG ATIVE UA WBC (test code = WBCU) per HPF 0-5 UA RBC (test code = RBCU) per HPF 0-5 UA EPITHELIAL CELLS (test code = EPIU) per HPF Few UA BACTERIA (test code = BACU) per HPF NONE Urine Source? Clean CatchB-TYPE NATRIURETIC [id number] 06:41:00* Test Item Value Reference Range Interpretation Comments B-TYPE NATRIURETIC PEPTIDE (test code = BNP) 14.6 pgram/mL 0-100 N CBC W/AUTO [id number] 05:36:00* Test Item Value Reference Range Interpretation Comments WHITE BLOOD CELL (test code = WBC) 5.9 K/mm3 4.5-12.5 N RED BLOOD CELL (test code = RBC) 3.82 mill/mm3 3.7-5.2 N HEMOGLOBIN (test code = HGB) 8.6 gram/dL 11.5-15.5 L HEMATOCRIT (test code = HCT) 30.1 % 36.0-46.0 L MEAN CELL VOLUME (test code = MCV) 78.8 fL 80-98 L MEAN CELL HGB (test code = MCH) 22.5 picogram 27.0-33.0 L MEAN CELL HGB CONCETRATION (test code = MCHC) 28.6 gram/dL 33.0-36. 0 L RED CELL DISTRIBUTION WIDTH (test code = RDW) 17.4 % 11.6-16. 2 H RED CELL DISTRIBUTION WIDTH SD (test code = RDW-SD) 49.2 fL 37 .0-51.0 N PLATELET COUNT (test code = PLT) 153 K/mm3 150-450 N MEAN PLATELET VOLUME (test code = MPV) 10.6 fL 6.7-11.0 N IMMATURE GRANULOCYTE % (test code = IG%) 2.0 % 0.0-5.0 N NUCLEATED RBC % (test code = NRBC%) 0.0 % 0-0 N NEUTROPHIL # (test code = NT#) 4.19 K/mm3 1.8-7.7 N IMMATURE GRANULOCYTE # (test code = IG#) 0.12 x10 3/uL 0-0.03 H LYMPHOCYTE # (test code = LY#) 1.05 K/mm3 1.0-5.0 N MONOCYTE # (test code = MO#) 0.28 K/mm3 0-0.8 N EOSINOPHIL # (test code = EO#) 0.20 K/mm3 0.0-0.5 N BASOPHIL # (test code = BA#) 0.04 K/mm3 0.0-0.2 N NUCLEATED RBC # (test code = NRBC#) 0.00 K/mm3 0.0-0.1 N MANUAL DIFF REQUIRED (test code = MDIFF) NO, ONLY SCAN NEEDED DIFFERENTIAL [id number] 05:36:00* Test Item Value Reference Range Interpretation Comments STAIN ACCEPTABILITY (test code = STN ACCEPTABLE) MORPHOLOGY COMMENT (test code = MOC) PLATELET ESTIMATE (test code = PLTEST) PLATELET MORPHOLOGY (test code = PLTMORPH) CBC W/AUTO [id number] 05:35:00* Test Item Value Reference Range Interpretation Comments WHITE BLOOD CELL (test code = WBC) 5.9 K/mm3 4.5-12.5 N RED BLOOD CELL (test code = RBC) 3.82 mill/mm3 3.7-5.2 N HEMOGLOBIN (test code = HGB) 8.6 gram/dL 11.5-15.5 L HEMATOCRIT (test code = HCT) 30.1 % 36.0-46.0 L MEAN CELL VOLUME (test code = MCV) 78.8 fL 80-98 L MEAN CELL HGB (test code = MCH) 22.5 picogram 27.0-33.0 L MEAN CELL HGB CONCETRATION (test code = MCHC) 28.6 gram/dL 33.0-36. 0 L RED CELL DISTRIBUTION WIDTH (test code = RDW) 17.4 % 11.6-16. 2 H RED CELL DISTRIBUTION WIDTH SD (test code = RDW-SD) 49.2 fL 37 .0-51.0 N PLATELET COUNT (test code = PLT) 153 K/mm3 150-450 N MEAN PLATELET VOLUME (test code = MPV) 10.6 fL 6.7-11.0 N IMMATURE GRANULOCYTE % (test code = IG%) 2.0 % 0.0-5.0 N NUCLEATED RBC % (test code = NRBC%) 0.0 % 0-0 N NEUTROPHIL # (test code = NT#) 4.19 K/mm3 1.8-7.7 N IMMATURE GRANULOCYTE # (test code = IG#) 0.12 x10 3/uL 0-0.03 H LYMPHOCYTE # (test code = LY#) 1.05 K/mm3 1.0-5.0 N MONOCYTE # (test code = MO#) 0.28 K/mm3 0-0.8 N EOSINOPHIL # (test code = EO#) 0.20 K/mm3 0.0-0.5 N BASOPHIL # (test code = BA#) 0.04 K/mm3 0.0-0.2 N NUCLEATED RBC # (test code = NRBC#) 0.00 K/mm3 0.0-0.1 N MANUAL DIFF REQUIRED (test code = MDIFF) NO, ONLY SCAN NEEDED DIFFERENTIAL [id number] 05:35:00* Test Item Value Reference Range Interpretation Comments STAIN ACCEPTABILITY (test code = STN ACCEPTABLE) CABOT RINGS (test code = CAB) MORPHOLOGY COMMENT (test code = MOC) PLATELET ESTIMATE (test code = PLTEST) PLATELET MORPHOLOGY (test code = PLTMORPH) CBC W/AUTO [id number] 05:35:00* Test Item Value Reference Range Interpretation Comments WHITE BLOOD CELL (test code = WBC) 5.9 K/mm3 4.5-12.5 N RED BLOOD CELL (test code = RBC) 3.82 mill/mm3 3.7-5.2 N HEMOGLOBIN (test code = HGB) 8.6 gram/dL 11.5-15.5 L HEMATOCRIT (test code = HCT) 30.1 % 36.0-46.0 L MEAN CELL VOLUME (test code = MCV) 78.8 fL 80-98 L MEAN CELL HGB (test code = MCH) 22.5 picogram 27.0-33.0 L MEAN CELL HGB CONCETRATION (test code = MCHC) 28.6 gram/dL 33.0-36. 0 L RED CELL DISTRIBUTION WIDTH (test code = RDW) 17.4 % 11.6-16. 2 H RED CELL DISTRIBUTION WIDTH SD (test code = RDW-SD) 49.2 fL 37 .0-51.0 N PLATELET COUNT (test code = PLT) 153 K/mm3 150-450 N MEAN PLATELET VOLUME (test code = MPV) 10.6 fL 6.7-11.0 N IMMATURE GRANULOCYTE % (test code = IG%) 2.0 % 0.0-5.0 N NUCLEATED RBC % (test code = NRBC%) 0.0 % 0-0 N NEUTROPHIL # (test code = NT#) 4.19 K/mm3 1.8-7.7 N IMMATURE GRANULOCYTE # (test code = IG#) 0.12 x10 3/uL 0-0.03 H LYMPHOCYTE # (test code = LY#) 1.05 K/mm3 1.0-5.0 N MONOCYTE # (test code = MO#) 0.28 K/mm3 0-0.8 N EOSINOPHIL # (test code = EO#) 0.20 K/mm3 0.0-0.5 N BASOPHIL # (test code = BA#) 0.04 K/mm3 0.0-0.2 N NUCLEATED RBC # (test code = NRBC#) 0.00 K/mm3 0.0-0.1 N MANUAL DIFF REQUIRED (test code = MDIFF) NO, ONLY SCAN NEEDED DIFFERENTIAL [id number] 05:35:00* Test Item Value Reference Range Interpretation Comments STAIN ACCEPTABILITY (test code = STN ACCEPTABLE) MORPHOLOGY COMMENT (test code = MOC) PLATELET ESTIMATE (test code = PLTEST) PLATELET MORPHOLOGY (test code = PLTMORPH) CBC W/AUTO [id number] 05:35:00* Test Item Value Reference Range Interpretation Comments WHITE BLOOD CELL (test code = WBC) 5.9 K/mm3 4.5-12.5 N RED BLOOD CELL (test code = RBC) 3.82 mill/mm3 3.7-5.2 N HEMOGLOBIN (test code = HGB) 8.6 gram/dL 11.5-15.5 L HEMATOCRIT (test code = HCT) 30.1 % 36.0-46.0 L MEAN CELL VOLUME (test code = MCV) 78.8 fL 80-98 L MEAN CELL HGB (test code = MCH) 22.5 picogram 27.0-33.0 L MEAN CELL HGB CONCETRATION (test code = MCHC) 28.6 gram/dL 33.0-36. 0 L RED CELL DISTRIBUTION WIDTH (test code = RDW) 17.4 % 11.6-16. 2 H RED CELL DISTRIBUTION WIDTH SD (test code = RDW-SD) 49.2 fL 37 .0-51.0 N PLATELET COUNT (test code = PLT) 153 K/mm3 150-450 N MEAN PLATELET VOLUME (test code = MPV) 10.6 fL 6.7-11.0 N IMMATURE GRANULOCYTE % (test code = IG%) 2.0 % 0.0-5.0 N NUCLEATED RBC % (test code = NRBC%) 0.0 % 0-0 N NEUTROPHIL # (test code = NT#) 4.19 K/mm3 1.8-7.7 N IMMATURE GRANULOCYTE # (test code = IG#) 0.12 x10 3/uL 0-0.03 H LYMPHOCYTE # (test code = LY#) 1.05 K/mm3 1.0-5.0 N MONOCYTE # (test code = MO#) 0.28 K/mm3 0-0.8 N EOSINOPHIL # (test code = EO#) 0.20 K/mm3 0.0-0.5 N BASOPHIL # (test code = BA#) 0.04 K/mm3 0.0-0.2 N NUCLEATED RBC # (test code = NRBC#) 0.00 K/mm3 0.0-0.1 N MANUAL DIFF REQUIRED (test code = MDIFF) NO, ONLY SCAN NEEDED DIFFERENTIAL [id number] 05:35:00* Test Item Value Reference Range Interpretation Comments STAIN ACCEPTABILITY (test code = STN ACCEPTABLE) CABOT RINGS (test code = CAB) MORPHOLOGY COMMENT (test code = MOC) PLATELET ESTIMATE (test code = PLTEST) PLATELET MORPHOLOGY (test code = PLTMORPH) BASIC METABOLIC [id number] 05:31:00* Test Item Value Reference Range Interpretation Comments SODIUM (test code = NA) 138 mmol/L 136-145 N POTASSIUM (test code = K) 5.0 mmol/L 3.5-5.1 N CHLORIDE (test code = CL) 108.0 mmol/L 98-107 H CARBON DIOXIDE (test code = CO2) 24.0 mmol/L 21-32 N ANION GAP (test code = GAP) 11.0 10-20 N GLUCOSE (test code = GLU) 422 mg/dL 74-106 H BLOOD UREA NITROGEN (test code = BUN) 29 mg/dL 7-18 H GLOMERULAR FILTRATION RATE (test code = GFR) 50 mL/min >=60 Estimated GFR by using Modified MDRD formula.Chronic kidney disease is defined as either kidney damageor GFR <60 mL/min/1.73 m2 for >3 months. CREATININE (test code = CREAT) 1.10 mg/dL 0.55-1.02 H Note change in reference range due to change in reagent. BUN/CREATININE RATIO (test code = BUN/CREA) 27.4 10-20 H CALCIUM (test code = CA) 8.5 mg/dL 8.5-10.1 N HEPATIC FUNCTION [id number] 05:31:00* Test Item Value Reference Range Interpretation Comments TOTAL PROTEIN (test code = PROT) 6.8 gram/dL 6.4-8.2 N ALBUMIN (test code = ALB) 3.0 g/dL 3.4-5.0 L GLOBULIN (test code = GLOB) 3.8 gram/dL 2.7-4.2 N ALBUMIN/GLOBULIN RATIO (test code = A/G) 0.8 0.75-1.50 N BILIRUBIN TOTAL (test code = BILT) 0.20 mg/dL 0.0-1.0 N BILIRUBIN DIRECT (test code = BILD) 0.05 mg/dL 0.0-0.20 N SGOT/AST (test code = AST) 26 IUnit/L 15-37 N SGPT/ALT (test code = ALT) 22 IUnit/L 12-78 N ALKALINE PHOSPHATASE TOTAL (test code = ALKP) 120 IUnit/L 45-117 H Note change in reference range due to change in reagent. [id number] 05:31:00* Test Item Value Reference Range Interpretation Comments MAGNESIUM (test code = MAG) 2.1 mg/dL 1.8-2.4 N [id number] 05:31:00* Test Item Value Reference Range Interpretation Comments TROPONIN-I (test code = TROPI) <0.015 ng/mL 0-0.045 N COVID 19 INHOUSE [id number] 04:50:00* Test Item Value Reference Range Interpretation Comments COVID 19 INHOUSE AG (test code = [id number]) NEGATIVE Is patient requiring admission or transfer? YIndication for rapid COVID-19 testi ng: Mod Clinical Suspicion- XR CHEST 1 V 2020-01-24 04:35:00 FAX: Benjamin Francis MD [phone] [place]: B St: [facility] FAX: Anastacio Burgess MD Name: KALYANI TALAVERA [facility] : 1955 Age/S: 64/F Shukri Glaser Unit #: [id number] Loc: [place] [address] Phys: Anastacio Burgess MD Acct: [id number] Dis Date: Status: REG ER PHONE #: [phone] Exam Date: 01/24/2020 0421 FAX #: [phone] Reason: SHORTNESS OF BREATH EXAMS: CPT CODE: [id number] XR CHEST 1 V [id number] EXAM: - XR CHEST 1 V HISTORY: Shortness of breath. COMPARISON: January 13, 2020. FINDINGS: Single AP view of the chest is provided. Heart size and vascularity are minimally engorged similar to prior exam. Hypoinflation of the lungs. Chronic elevation of right hemidiaphragm. No definite consolidation, pleural effusion or pneumothorax. IMPRESSION: No significant interval change. Mild pulmonary vascular congestion. Shallow inspiration. Electronically Signed by Leon Guevara MD on 09/2019 at 0435 Reported and signed by: Leon Guevara CC: Benjamin Masters; Anastacio Burgess MD Technologist: JACINDA LYONS RRT Trnscrd Da te/Time/By: 01/24/2020 (0435) : By: [email or web address] Orig Print D/T: S: 01/23 (0438) PAGE 1 Signed Report [id number] 12:58:00* Test Item Value Reference Range Interpretation Comments GLUBED (test code = GLUBED) 54 mg/dL 74-106 L Performed by certified glue spreading machine operator at [facility] BASIC METABOLIC [id number] 09:17:00* Test Item Value Reference Range Interpretation Comments SODIUM (test code = NA) 139 mmol/L 136-145 N POTASSIUM (test code = K) 4.5 mmol/L 3.5-5.1 N CHLORIDE (test code = CL) 104.0 mmol/L 98-107 N CARBON DIOXIDE (test code = CO2) 31.0 mmol/L 21-32 N ANION GAP (test code = GAP) 8.5 10-20 L GLUCOSE (test code = GLU) 160 mg/dL 74-106 H BLOOD UREA NITROGEN (test code = BUN) 24 mg/dL 7-18 H GLOMERULAR FILTRATION RATE (test code = GFR) > 60 mL/min >=60 Estimated GFR by using Modified MDRD formula.Chronic kidney disease is defined as either kidney damageor GFR <60 mL/min/1.73 m2 for >3 months. CREATININE (test code = CREAT) 0.70 mg/dL 0.55-1.02 N Note change in reference range due to change in reagent. BUN/CREATININE RATIO (test code = BUN/CREA) 33.9 10-20 H CALCIUM (test code = CA) 8.8 mg/dL 8.5-10.1 N BASIC METABOLIC [id number] 09:06:00* Test Item Value Reference Range Interpretation Comments SODIUM (test code = NA) 139 mmol/L 136-145 N POTASSIUM (test code = K) 4.5 mmol/L 3.5-5.1 N CHLORIDE (test code = CL) 104.0 mmol/L 98-107 N CARBON DIOXIDE (test code = CO2) mmol/L 21-32 ANION GAP (test code = GAP) 10-20 GLUCOSE (test code = GLU) mg/dL 74-106 BLOOD UREA NITROGEN (test code = BUN) mg/dL 7-18 GLOMERULAR FILTRATION RATE (test code = GFR) mL/min >=60 CREATININE (test code = CREAT) mg/dL 0.55-1.02 BUN/CREATININE RATIO (test code = BUN/CREA) 10-20 CALCIUM (test code = CA) mg/dL 8.5-10.1 [id number] 08:29:00* Test Item Value Reference Range Interpretation Comments GLUBED (test code = GLUBED) 160 mg/dL 74-106 H Performed by certified glue spreading machine operator at [facility] [id number] 20:47:00* Test Item Value Reference Range Interpretation Comments GLUBED (test code = GLUBED) 210 mg/dL 74-106 H Performed by certified glue spreading machine operator at [facility] [id number] 18:37:00* Test Item Value Reference Range Interpretation Comments GLUBED (test code = GLUBED) 91 mg/dL 74-106 N Performed by certified glue spreading machine operator at [facility] BASIC METABOLIC [id number] 17:55:00* Test Item Value Reference Range Interpretation Comments SODIUM (test code = NA) 138 mmol/L 136-145 N POTASSIUM (test code = K) 4.7 mmol/L 3.5-5.1 N CHLORIDE (test code = CL) 103.0 mmol/L 98-107 N CARBON DIOXIDE (test code = CO2) 26.0 mmol/L 21-32 N ANION GAP (test code = GAP) 13.7 10-20 N GLUCOSE (test code = GLU) 67 mg/dL 74-106 L BLOOD UREA NITROGEN (test code = BUN) 30 mg/dL 7-18 H GLOMERULAR FILTRATION RATE (test code = GFR) > 60 mL/min >=60 Estimated GFR by using Modified MDRD formula.Chronic kidney disease is defined as either kidney damageor GFR <60 mL/min/1.73 m2 for >3 months. CREATININE (test code = CREAT) 0.70 mg/dL 0.55-1.02 N Note change in reference range due to change in reagent. BUN/CREATININE RATIO (test code = BUN/CREA) 40.5 10-20 H CALCIUM (test code = CA) 8.5 mg/dL 8.5-10.1 N BASIC METABOLIC [id number] 17:50:00* Test Item Value Reference Range Interpretation Comments SODIUM (test code = NA) 138 mmol/L 136-145 N POTASSIUM (test code = K) 4.7 mmol/L 3.5-5.1 N CHLORIDE (test code = CL) 103.0 mmol/L 98-107 N CARBON DIOXIDE (test code = CO2) mmol/L 21-32 ANION GAP (test code = GAP) 10-20 GLUCOSE (test code = GLU) mg/dL 74-106 BLOOD UREA NITROGEN (test code = BUN) mg/dL 7-18 GLOMERULAR FILTRATION RATE (test code = GFR) mL/min >=60 CREATININE (test code = CREAT) mg/dL 0.55-1.02 BUN/CREATININE RATIO (test code = BUN/CREA) 10-20 CALCIUM (test code = CA) mg/dL 8.5-10.1 - XR CHEST 1 [id number] 17:38:00 FAX: Benjamin Francis MD [phone] [place]: B St: ADM Name: KALYANI CATES [facility] : [birth year] Age/S: 64/F [address] Unit #: [id number] Loc: V.3042 [place] [address] Phys: Benjamin Masters MD Acct: [id number] Dis Date: Status: ADM IN PHONE #: [phone] Exam Date: 01/13/2020 1531 FAX #: [phone] Reason: CHF EXAMS: CPT CODE: [id number] XR CHEST 1 V 32893 EXAM: Chest x-ray, one view; INFORMATION: Shortness of breath, CHF; IMPRESSION: Moderate improvement compared with the recent study from January 11, 2020: The heart is decreased in size; mild cardiomegaly remains. Lung bases are better demarcated indicating resolution of interstitial edema; mild left heart failure remains. Location code: [facility] at 1738 Reported and signed by: Jc Bravo M.D. CC: Benjamin Masters Technologist: SAMPSON Soler) Trnscrd Date/Time/By: 01/13/2020 (1737) : By: Dannielle Orig Print D/T: S: 01/13/2020 (2484) PAGE 1 Signed Report [id number] 17:22:00* Test Item Value Reference Range Interpretation Comments GLUBED (test code = GLUBED) 84 mg/dL 74-106 N Performed by certified glue spreading machine operator at [facility] [id number] 16:46:00* Test Item Value Reference Range Interpretation Comments GLUBED (test code = GLUBED) 65 mg/dL 74-106 L Performed by certified glue spreading machine operator at [facility] BRONCH LAVAGE FLD CELL [id number] 15:32:00* Test Item Value Reference Range Interpretation Comments FLUID SOURCE (test code = SOURCEFL) BRONCHIAL LAVAGE FLUID COLOR (test code = COLFL) COLORLESS COLORLESS FLUID APPEARANCE (test code = APPFL) CLEAR FLUID WBC (test code = WBCFL) 97 per mm3 0-150 N QC performed - Cell count on both sides of chamber agreeswithin 20% ? Y FLUID RBC (test code = RBCFL) 193 per mm3 0-50 H REVIEWED BY (test code = REVIEW) PATHOLOGIST 8 SECP15 [id number] Carlyle Markham BRONCHIAL [id number] 14:21:00 RUN DATE: 01/13/20 [place] [facility] PAGE 1 RUN TIME: 1421 Specimen Inqui ry RUN USER: INTERFACE PATIENT: KALYANI TALAVERA ACCT #: [id number] LOC: [facility] U #: [id number] AGE/SX: 64/F ROOM: [facility] RE01/07/20REG DR: Benjamin Masters MD : 57 BED: A DIS: STATUS: ADM IN TLOC: SPEC #: [id number] RECD: 01/10/20 STATUS: SHREYA BROWN #: [id number] MARILEE: 01/10/20- SUBM DR: Benjamin Masters MD ENTERED: 01/10/20-1242 SP TYPE: BRONCH WA OTHR DR: Ivett Valderrama i, MD, Kuldip Kumar MD Nassif, George M MDORDERED: GROSS COPIES TO: Ivett Christianson MD [address] [place], [place] [id number] Harry Gutierrez MD [address] [place], [place] [id number] Rigo Alexander MD [address] [facility] [address] [place] [phone] Benjamin Murphy MD [address] [place] [address] PROCED URES: GROSS (01/13/20-1308) TISSUES: BRONCH LAVAGE - 60ML CLOUDY FLUID CLINICAL HISTORY COLLECTION DATE: 01/10/20 INTERSTITIAL LUNG DI SEASE FINAL DIAGNOSIS Left lingular bronchoalveolar lavage for cytol ogy and CD4/CD8 ratio: PULMONARY MACROPHAGES, NEUTROPHILS, AND A FEW COLU MNAR BRONCHIAL LINING CELLS NEGATIVE FOR MALIGNANCY CD4- CD8 RATIO 1.0: 1 (SEE INCLUDED ADX FLOW CYTOMETRY REPORT [id number]) CONTINUED ON NEXT PAGE RUN DATE: 01/13/20 [place] [facility] Lab PAGE 2 RUN TIME: 1421 Specimen Inquiry RUN USER: INTERFACE -- SPEC #: [id number] PATIENT: KALYANI TALAVERA #[id number] (Continued) FINAL DIAGNOSIS (Continued) BRITTNI/corby D [id number], [id number] FLOW CYTOMETRY A Flow cytometry repo rt is received from [facility] Case No:[id number] the int erpretation is as follows: Clinical DataShortness of breath; CHF; COPD Interpre tation- CD4:CD8 RATIO ( 1.0:1)- NO MYELOID ABNORMALITY- NO BLASTS IDENTIFIED- NO B CELL CLONALITY OR ABERRANT T CELL ANTIGEN EXPRESSION- LOW CELL VIABILITY (38. 6%) Comment:Of note, low cell viability limits evaluation. .No immunophenotypic findings of alymphoproliferative disorder or acute leukemia are identified. Resu ltsPopulations IdentifiedBlasts: 0.0%B-Cells: 0.1% surface-kappa:lambda ratio: 1 .5:1 (consistent with polyclonalB-Cellpopulation)Hematogones: 0.0%T-Cells: 3.5% CD4:CD8 ratio: 1.02:1 (consistent with benign T-Cell population)NK-Cells: 0.3%Pl asma cells: 0.0%Granulocytes: 41.6%Monocytes: 4.4%Viability: 38.6% The remaining events consist of debris and non-staining forms.Evaluated Markers CD2, CD3, CD4, CD5, CD7, CD8, CD10, CD15, CD19, CD20, CD23, CD30, CD34, CD38, CD45, CD56,CD103, CD117,FMC-7, surface kappa, surface lambda, 7AAD (Total markers: 22) This test was developed and its performance characteristics determined by [facility]. It has not been cleared or approved by the U.S. Food and Drug Administrat ion.The FDA has determined that such clearance is not necessary. This test is us ed for clinicalpurposes. It should not be regarded as investigational or for res earch. This laboratory iscertified under the Clinical Laboratory Improvement [place] ndments of 1987 (CLIA-88) as CONTINUED ON NEXT PAGE RUN DATE: 01/13/20 [facility] PAGE 3 RUN TIME: 1421 Speci men Inquiry RUN USER: INTERFACE SPEC #: [id number] PATIENT: ARIE HernandezKALYANI #[id number] (Continued) FLOW CYTOMETRY (Continued) qualified to perform high complexity clinical te sting. The above report was reviewed and interpretive comments are provided. The comments areapproved for the medical records of the identified patient with my electronic signature. Electronic SignatureLachelle Iyer, R D Engineer CPT C ode(s): 44018,59859(x21),51727 ICD Code(s): R89.7 The Technical and Professional components were performed at [facility], [address] [place] [address] . MACROSCOPIC The specimen is designated as "left lingula BAL". It consists of 60 mL of cloudy fluid for processing and evaluation. Material will be submitted for CD4 CD8 ratio test. A cell block is prepared. GROSS PERFORMED AT [facility] [address] [place] [address] [phone] MICROSCOPIC All of the stains, including any controls pe rformed, stain appropriately. MICROSCOPIC PERFORMED AT [facility] [address] [place] [address] [phone] PERFORMING SITE Diagnosis performed at: [facility] [address] [place], [place] [address] CONTINUED ON NEXT PAGE RUN DATE: 01/13/20 [facility] PAGE 4 RUN TIME: 1421 Specimen Inquiry RUN USER: Vincent MORENO Mary PEC #: [id number] PATIENT: KALYANI TALAVERA #[id number] (Continued) Signed SIGNATURE ON FILE Petty Lowe MD 01/13/20 1421 END OF REPORT GLUBED 2020-01-13 12:45:00* Test Item Value Reference Range Interpretation Comments GLUBED (test code = GLUBED) 105 mg/dL 74-106 N Performed by certified glue spreading machine operator at [facility] [id number] 08:07:00* Test Item Value Reference Range Interpretation Comments GLUBED (test code = GLUBED) 92 mg/dL 74-106 N Performed by certified glue spreading machine operator at [facility] [id number] 19:54:00* Test Item Value Reference Range Interpretation Comments GLUBED (test code = GLUBED) 149 mg/dL 74-106 H Performed by certified glue spreading machine operator at [facility] [id number] 17:05:00* Test Item Value Reference Range Interpretation Comments GLUBED (test code = GLUBED) 127 mg/dL 74-106 H Performed by certified glue spreading machine operator at [facility] [id number] 12:02:00* Test Item Value Reference Range Interpretation Comments GLUBED (test code = GLUBED) 209 mg/dL 74-106 H Performed by certified glue spreading machine operator at [facility] [id number] 08:45:00* Test Item Value Reference Range Interpretation Comments GLUBED (test code = GLUBED) 175 mg/dL 74-106 H Performed by certified glue spreading machine operator at [facility] B-TYPE NATRIURETIC [id number] 07:19:00* Test Item Value Reference Range Interpretation Comments B-TYPE NATRIURETIC PEPTIDE (test code = BNP) 28.74 pgram/mL 0-100 N COMPREHENSIVE METABOLIC [id number] 07:07:00* Test Item Value Reference Range Interpretation Comments SODIUM (test code = NA) 140 mmol/L 136-145 N POTASSIUM (test code = K) 4.7 mmol/L 3.5-5.1 N CHLORIDE (test code = CL) 100.0 mmol/L 98-107 N CARBON DIOXIDE (test code = CO2) 31.0 mmol/L 21-32 N ANION GAP (test code = GAP) 13.7 10-20 N GLUCOSE (test code = GLU) 149 mg/dL 74-106 H BLOOD UREA NITROGEN (test code = BUN) 42 mg/dL 7-18 H GLOMERULAR FILTRATION RATE (test code = GFR) > 60 mL/min >=60 Estimated GFR by using Modified MDRD formula.Chronic kidney disease is defined as either kidney damageor GFR <60 mL/min/1.73 m2 for >3 months. CREATININE (test code = CREAT) 0.90 mg/dL 0.55-1.02 N Note change in reference range due to change in reagent. BUN/CREATININE RATIO (test code = BUN/CREA) 47.5 10-20 H TOTAL PROTEIN (test code = PROT) 6.7 gram/dL 6.4-8.2 N ALBUMIN (test code = ALB) 3.4 g/dL 3.4-5.0 N GLOBULIN (test code = GLOB) 3.3 gram/dL 2.7-4.2 N ALBUMIN/GLOBULIN RATIO (test code = A/G) 1.0 0.75-1.50 N CALCIUM (test code = CA) 8.7 mg/dL 8.5-10.1 N BILIRUBIN TOTAL (test code = BILT) 0.20 mg/dL 0.0-1.0 N SGOT/AST (test code = AST) 22 IUnit/L 15-37 N SGPT/ALT (test code = ALT) 32 IUnit/L 12-78 N ALKALINE PHOSPHATASE TOTAL (test code = ALKP) 108 IUnit/L 45-117 N Note change in reference range due to change in reagent. COMPREHENSIVE METABOLIC [id number] 06:56:00* Test Item Value Reference Range Interpretation Comments SODIUM (test code = NA) 140 mmol/L 136-145 N POTASSIUM (test code = K) 4.7 mmol/L 3.5-5.1 N CHLORIDE (test code = CL) 100.0 mmol/L 98-107 N CARBON DIOXIDE (test code = CO2) mmol/L 21-32 ANION GAP (test code = GAP) 10-20 GLUCOSE (test code = GLU) mg/dL 74-106 BLOOD UREA NITROGEN (test code = BUN) mg/dL 7-18 GLOMERULAR FILTRATION RATE (test code = GFR) mL/min >=60 CREATININE (test code = CREAT) mg/dL 0.55-1.02 BUN/CREATININE RATIO (test code = BUN/CREA) 10-20 TOTAL PROTEIN (test code = PROT) gram/dL 6.4-8.2 ALBUMIN (test code = ALB) g/dL 3.4-5.0 GLOBULIN (test code = GLOB) gram/dL 2.7-4.2 ALBUMIN/GLOBULIN RATIO (test code = A/G) 0.75-1.50 CALCIUM (test code = CA) mg/dL 8.5-10.1 BILIRUBIN TOTAL (test code = BILT) mg/dL 0.0-1.0 SGOT/AST (test code = AST) IUnit/L 15-37 SGPT/ALT (test code = ALT) IUnit/L 12-78 ALKALINE PHOSPHATASE TOTAL (test code = ALKP) IUnit/L 45-117 CBC W/AUTO [id number] 06:51:00* Test Item Value Reference Range Interpretation Comments WHITE BLOOD CELL (test code = WBC) 6.8 K/mm3 4.5-12.5 N RED BLOOD CELL (test code = RBC) 4.34 mill/mm3 3.7-5.2 N HEMOGLOBIN (test code = HGB) 9.9 gram/dL 11.5-15.5 L HEMATOCRIT (test code = HCT) 34.5 % 36.0-46.0 L MEAN CELL VOLUME (test code = MCV) 79.5 fL 80-98 L MEAN CELL HGB (test code = MCH) 22.8 picogram 27.0-33.0 L MEAN CELL HGB CONCETRATION (test code = MCHC) 28.7 gram/dL 33.0-36. 0 L RED CELL DISTRIBUTION WIDTH (test code = RDW) 16.5 % 11.6-16. 2 H RED CELL DISTRIBUTION WIDTH SD (test code = RDW-SD) 47.4 fL 37 .0-51.0 N PLATELET COUNT (test code = PLT) 169 K/mm3 150-450 N MEAN PLATELET VOLUME (test code = MPV) 10.3 fL 6.7-11.0 N NEUTROPHIL % (test code = NT%) 69.9 % 39.0-69.0 H IMMATURE GRANULOCYTE % (test code = IG%) 0.9 % 0.0-5.0 N LYMPHOCYTE % (test code = LY%) 21.2 % 25.0-55.0 L MONOCYTE % (test code = MO%) 5.7 % 0.0-10.0 N EOSINOPHIL % (test code = EO%) 1.6 % 0.0-5.0 N BASOPHIL % (test code = BA%) 0.7 % 0.0-1.0 N NUCLEATED RBC % (test code = NRBC%) 0.0 % 0-0 N NEUTROPHIL # (test code = NT#) 4.77 K/mm3 1.8-7.7 N IMMATURE GRANULOCYTE # (test code = IG#) 0.06 x10 3/uL 0-0.03 H LYMPHOCYTE # (test code = LY#) 1.45 K/mm3 1.0-5.0 N MONOCYTE # (test code = MO#) 0.39 K/mm3 0-0.8 N EOSINOPHIL # (test code = EO#) 0.11 K/mm3 0.0-0.5 N BASOPHIL # (test code = BA#) 0.05 K/mm3 0.0-0.2 N NUCLEATED RBC # (test code = NRBC#) 0.00 K/mm3 0.0-0.1 N [id number] 20:46:00* Test Item Value Reference Range Interpretation Comments GLUBED (test code = GLUBED) 257 mg/dL 74-106 H Performed by certified glue spreading machine operator at [facility] - XR CHEST 1 [id number] 18:25:00 FAX: Alfa Moscoso MD [phone] [place]: St: [facility] FAX: Benjamin Francis MD [phone] Name: KALYANI TALAVERA [facility] : 1955 Age/S: 64/F [address] [facility] Unit #: [id number] Loc: V.3042 [place] [address] Phys: Alfa Cassidy MD Acct: [id number] Dis Date: Status: ADM IN PHONE #: [phone] Exam Date: 01/11/2020 1825 FAX #: [phone] Reason: CHF EXAMS: CPT CODE: [id number] XR CHEST 1 V 44251 REASON FOR EXAM: CHF Exam Order Date: 01/11/2020 12:00 AM Ordering M.D.: Alfa Cassidy MD PROCEDURE: - XR CHEST 1 V COMPARISON: Chest x-ray January 07, 2020 FINDINGS: Lung volumes are diminished which causes crowding of the bronchovascular structures. There is also engorgement of the pulmonary vessels. Cardiomediastinal silhouette is enlarged, this finding is worsened by low lung volumes. Degenerative changes are present in the spine. The visualized upper abdomen is within normal limits. IMPRESSION: Low lung volumes with findings of CHF. Location: [facility] at 1825 Reported and signed by: Dago Goodson MD CC: Alfa Cassidy MD; Benjamin Masters Technologist: SCOOBY PARSONS, RT(R); TAWANNA HURTADO RT(R) Trnscrd Date/Time/By: 01/11/2020 (1824) : By: [id number] Orig Print D/T: S: 01/11/2020 (1827) PAGE 1 Signed Report [id number] 16:50:00* Test Item Value Reference Range Interpretation Comments GLUBED (test code = GLUBED) 262 mg/dL 74-106 H Performed by certified glue spreading machine operator at [facility] [id number] 12:17:00* Test Item Value Reference Range Interpretation Comments GLUBED (test code = GLUBED) 348 mg/dL 74-106 H Performed by certified glue spreading machine operator at [facility] [id number] 08:51:00* Test Item Value Reference Range Interpretation Comments GLUBED (test code = GLUBED) 361 mg/dL 74-106 H Performed by certified glue spreading machine operator at [facility] BRONCH LAVAGE FLD CELL [id number] 22:17:00* Test Item Value Reference Range Interpretation Comments FLUID SOURCE (test code = SOURCEFL) BRONCHIAL LAVAGE FLUID COLOR (test code = COLFL) COLORLESS COLORLESS FLUID APPEARANCE (test code = APPFL) CLEAR FLUID WBC (test code = WBCFL) 97 per mm3 0-150 N QC performed - Cell count on both sides of chamber agreeswithin 20% ? Y FLUID RBC (test code = RBCFL) 193 per mm3 0-50 H REVIEWED BY (test code = REVIEW) PATHOLOGIST [id number] 20:37:00* Test Item Value Reference Range Interpretation Comments GLUBED (test code = GLUBED) 334 mg/dL 74-106 H Performed by certified glue spreading machine operator at [facility] [id number] 17:59:00* Test Item Value Reference Range Interpretation Comments GLUBED (test code = GLUBED) 310 mg/dL 74-106 H Performed by certified glue spreading machine operator at [facility] [id number] 13:51:00* Test Item Value Reference Range Interpretation Comments GLUBED (test code = GLUBED) 260 mg/dL 74-106 H Performed by certified glue spreading machine operator at [facility] BASIC METABOLIC [id number] 10:17:00* Test Item Value Reference Range Interpretation Comments SODIUM (test code = NA) 137 mmol/L 136-145 N POTASSIUM (test code = K) 4.1 mmol/L 3.5-5.1 N CHLORIDE (test code = CL) 100.0 mmol/L 98-107 N CARBON DIOXIDE (test code = CO2) 29.0 mmol/L 21-32 N ANION GAP (test code = GAP) 12.1 10-20 N GLUCOSE (test code = GLU) 202 mg/dL 74-106 H BLOOD UREA NITROGEN (test code = BUN) 31 mg/dL 7-18 H GLOMERULAR FILTRATION RATE (test code = GFR) > 60 mL/min >=60 Estimated GFR by using Modified MDRD formula.Chronic kidney disease is defined as either kidney damageor GFR <60 mL/min/1.73 m2 for >3 months. CREATININE (test code = CREAT) 0.90 mg/dL 0.55-1.02 N Note change in reference range due to change in reagent. BUN/CREATININE RATIO (test code = BUN/CREA) 34.9 10-20 H CALCIUM (test code = CA) 8.6 mg/dL 8.5-10.1 N BASIC METABOLIC [id number] 10:13:00* Test Item Value Reference Range Interpretation Comments SODIUM (test code = NA) 137 mmol/L 136-145 N POTASSIUM (test code = K) 4.1 mmol/L 3.5-5.1 N CHLORIDE (test code = CL) 100.0 mmol/L 98-107 N CARBON DIOXIDE (test code = CO2) mmol/L 21-32 ANION GAP (test code = GAP) 10-20 GLUCOSE (test code = GLU) mg/dL 74-106 BLOOD UREA NITROGEN (test code = BUN) mg/dL 7-18 GLOMERULAR FILTRATION RATE (test code = GFR) mL/min >=60 CREATININE (test code = CREAT) mg/dL 0.55-1.02 BUN/CREATININE RATIO (test code = BUN/CREA) 10-20 CALCIUM (test code = CA) mg/dL 8.5-10.1 [id number] 08:31:00* Test Item Value Reference Range Interpretation Comments GLUBED (test code = GLUBED) 191 mg/dL 74-106 H Performed by certified glue spreading machine operator at [facility] CBC W/AUTO [id number] 07:02:00* Test Item Value Reference Range Interpretation Comments WHITE BLOOD CELL (test code = WBC) 7.1 K/mm3 4.5-12.5 N RED BLOOD CELL (test code = RBC) 4.44 mill/mm3 3.7-5.2 N HEMOGLOBIN (test code = HGB) 10.0 gram/dL 11.5-15.5 L HEMATOCRIT (test code = HCT) 34.6 % 36.0-46.0 L MEAN CELL VOLUME (test code = MCV) 77.9 fL 80-98 L MEAN CELL HGB (test code = MCH) 22.5 picogram 27.0-33.0 L MEAN CELL HGB CONCETRATION (test code = MCHC) 28.9 gram/dL 33.0-36. 0 L RED CELL DISTRIBUTION WIDTH (test code = RDW) 17.0 % 11.6-16. 2 H RED CELL DISTRIBUTION WIDTH SD (test code = RDW-SD) 47.8 fL 37 .0-51.0 N PLATELET COUNT (test code = PLT) 193 K/mm3 150-450 N MEAN PLATELET VOLUME (test code = MPV) 10.7 fL 6.7-11.0 N NEUTROPHIL % (test code = NT%) 69.9 % 39.0-69.0 H IMMATURE GRANULOCYTE % (test code = IG%) 0.7 % 0.0-5.0 N LYMPHOCYTE % (test code = LY%) 19.4 % 25.0-55.0 L MONOCYTE % (test code = MO%) 6.2 % 0.0-10.0 N EOSINOPHIL % (test code = EO%) 3.2 % 0.0-5.0 N BASOPHIL % (test code = BA%) 0.6 % 0.0-1.0 N NUCLEATED RBC % (test code = NRBC%) 0.0 % 0-0 N NEUTROPHIL # (test code = NT#) 4.96 K/mm3 1.8-7.7 N IMMATURE GRANULOCYTE # (test code = IG#) 0.05 x10 3/uL 0-0.03 H LYMPHOCYTE # (test code = LY#) 1.38 K/mm3 1.0-5.0 N MONOCYTE # (test code = MO#) 0.44 K/mm3 0-0.8 N EOSINOPHIL # (test code = EO#) 0.23 K/mm3 0.0-0.5 N BASOPHIL # (test code = BA#) 0.04 K/mm3 0.0-0.2 N NUCLEATED RBC # (test code = NRBC#) 0.00 K/mm3 0.0-0.1 N MANUAL DIFF REQUIRED (test code = MDIFF) NO, ONLY SCAN NEEDED DIFFERENTIAL [id number] 07:02:00* Test Item Value Reference Range Interpretation Comments STAIN ACCEPTABILITY (test code = STN ACCEPTABLE) STAIN ACCEPTABLE POLYCHROMASIA (test code = POLC) 1+ ANISOCYTOSIS (test code = ANISO) 2+ MICROCYTOSIS (test code = MICR) 2+ MORPHOLOGY COMMENT (test code = MOC) TEST NOT PERFORMED PLATELET ESTIMATE (test code = PLTEST) ADEQUATE PLATELET MORPHOLOGY (test code = PLTMORPH) NORMAL COMPREHENSIVE METABOLIC [id number] 05:34:00* Test Item Value Reference Range Interpretation Comments SODIUM (test code = NA) 139 mmol/L 136-145 N POTASSIUM (test code = K) 3.7 mmol/L 3.5-5.1 N CHLORIDE (test code = CL) 100.0 mmol/L 98-107 N CARBON DIOXIDE (test code = CO2) 30.0 mmol/L 21-32 N ANION GAP (test code = GAP) 12.7 10-20 N GLUCOSE (test code = GLU) 212 mg/dL 74-106 H BLOOD UREA NITROGEN (test code = BUN) 33 mg/dL 7-18 H GLOMERULAR FILTRATION RATE (test code = GFR) > 60 mL/min >=60 Estimated GFR by using Modified MDRD formula.Chronic kidney disease is defined as either kidney damageor GFR <60 mL/min/1.73 m2 for >3 months. CREATININE (test code = CREAT) 0.90 mg/dL 0.55-1.02 N Note change in reference range due to change in reagent. BUN/CREATININE RATIO (test code = BUN/CREA) 37.0 10-20 H TOTAL PROTEIN (test code = PROT) 6.0 gram/dL 6.4-8.2 L ALBUMIN (test code = ALB) 3.1 g/dL 3.4-5.0 L GLOBULIN (test code = GLOB) 2.9 gram/dL 2.7-4.2 N ALBUMIN/GLOBULIN RATIO (test code = A/G) 1.1 0.75-1.50 N CALCIUM (test code = CA) 8.2 mg/dL 8.5-10.1 L BILIRUBIN TOTAL (test code = BILT) 0.30 mg/dL 0.0-1.0 N SGOT/AST (test code = AST) 10 IUnit/L 15-37 L SGPT/ALT (test code = ALT) 26 IUnit/L 12-78 N ALKALINE PHOSPHATASE TOTAL (test code = ALKP) 108 IUnit/L 45-117 N Note change in reference range due to change in reagent. CBC W/AUTO [id number] 05:30:00* Test Item Value Reference Range Interpretation Comments WHITE BLOOD CELL (test code = WBC) 7.1 K/mm3 4.5-12.5 N RED BLOOD CELL (test code = RBC) 4.44 mill/mm3 3.7-5.2 N HEMOGLOBIN (test code = HGB) 10.0 gram/dL 11.5-15.5 L HEMATOCRIT (test code = HCT) 34.6 % 36.0-46.0 L MEAN CELL VOLUME (test code = MCV) 77.9 fL 80-98 L MEAN CELL HGB (test code = MCH) 22.5 picogram 27.0-33.0 L MEAN CELL HGB CONCETRATION (test code = MCHC) 28.9 gram/dL 33.0-36. 0 L RED CELL DISTRIBUTION WIDTH (test code = RDW) 17.0 % 11.6-16. 2 H RED CELL DISTRIBUTION WIDTH SD (test code = RDW-SD) 47.8 fL 37 .0-51.0 N PLATELET COUNT (test code = PLT) 193 K/mm3 150-450 N MEAN PLATELET VOLUME (test code = MPV) 10.7 fL 6.7-11.0 N NEUTROPHIL % (test code = NT%) 69.9 % 39.0-69.0 H IMMATURE GRANULOCYTE % (test code = IG%) 0.7 % 0.0-5.0 N LYMPHOCYTE % (test code = LY%) 19.4 % 25.0-55.0 L MONOCYTE % (test code = MO%) 6.2 % 0.0-10.0 N EOSINOPHIL % (test code = EO%) 3.2 % 0.0-5.0 N BASOPHIL % (test code = BA%) 0.6 % 0.0-1.0 N NUCLEATED RBC % (test code = NRBC%) 0.0 % 0-0 N NEUTROPHIL # (test code = NT#) 4.96 K/mm3 1.8-7.7 N IMMATURE GRANULOCYTE # (test code = IG#) 0.05 x10 3/uL 0-0.03 H LYMPHOCYTE # (test code = LY#) 1.38 K/mm3 1.0-5.0 N MONOCYTE # (test code = MO#) 0.44 K/mm3 0-0.8 N EOSINOPHIL # (test code = EO#) 0.23 K/mm3 0.0-0.5 N BASOPHIL # (test code = BA#) 0.04 K/mm3 0.0-0.2 N NUCLEATED RBC # (test code = NRBC#) 0.00 K/mm3 0.0-0.1 N MANUAL DIFF REQUIRED (test code = MDIFF) NO, ONLY SCAN NEEDED DIFFERENTIAL [id number] 05:30:00* Test Item Value Reference Range Interpretation Comments STAIN ACCEPTABILITY (test code = STN ACCEPTABLE) CABOT RINGS (test code = CAB) MORPHOLOGY COMMENT (test code = MOC) PLATELET ESTIMATE (test code = PLTEST) PLATELET MORPHOLOGY (test code = PLTMORPH) CBC W/AUTO [id number] 05:30:00* Test Item Value Reference Range Interpretation Comments WHITE BLOOD CELL (test code = WBC) 7.1 K/mm3 4.5-12.5 N RED BLOOD CELL (test code = RBC) 4.44 mill/mm3 3.7-5.2 N HEMOGLOBIN (test code = HGB) 10.0 gram/dL 11.5-15.5 L HEMATOCRIT (test code = HCT) 34.6 % 36.0-46.0 L MEAN CELL VOLUME (test code = MCV) 77.9 fL 80-98 L MEAN CELL HGB (test code = MCH) 22.5 picogram 27.0-33.0 L MEAN CELL HGB CONCETRATION (test code = MCHC) 28.9 gram/dL 33.0-36. 0 L RED CELL DISTRIBUTION WIDTH (test code = RDW) 17.0 % 11.6-16. 2 H RED CELL DISTRIBUTION WIDTH SD (test code = RDW-SD) 47.8 fL 37 .0-51.0 N PLATELET COUNT (test code = PLT) 193 K/mm3 150-450 N MEAN PLATELET VOLUME (test code = MPV) 10.7 fL 6.7-11.0 N NEUTROPHIL % (test code = NT%) 69.9 % 39.0-69.0 H IMMATURE GRANULOCYTE % (test code = IG%) 0.7 % 0.0-5.0 N LYMPHOCYTE % (test code = LY%) 19.4 % 25.0-55.0 L MONOCYTE % (test code = MO%) 6.2 % 0.0-10.0 N EOSINOPHIL % (test code = EO%) 3.2 % 0.0-5.0 N BASOPHIL % (test code = BA%) 0.6 % 0.0-1.0 N NUCLEATED RBC % (test code = NRBC%) 0.0 % 0-0 N NEUTROPHIL # (test code = NT#) 4.96 K/mm3 1.8-7.7 N IMMATURE GRANULOCYTE # (test code = IG#) 0.05 x10 3/uL 0-0.03 H LYMPHOCYTE # (test code = LY#) 1.38 K/mm3 1.0-5.0 N MONOCYTE # (test code = MO#) 0.44 K/mm3 0-0.8 N EOSINOPHIL # (test code = EO#) 0.23 K/mm3 0.0-0.5 N BASOPHIL # (test code = BA#) 0.04 K/mm3 0.0-0.2 N NUCLEATED RBC # (test code = NRBC#) 0.00 K/mm3 0.0-0.1 N MANUAL DIFF REQUIRED (test code = MDIFF) NO, ONLY SCAN NEEDED DIFFERENTIAL [id number] 05:30:00* Test Item Value Reference Range Interpretation Comments STAIN ACCEPTABILITY (test code = STN ACCEPTABLE) CABOT RINGS (test code = CAB) MORPHOLOGY COMMENT (test code = MOC) PLATELET ESTIMATE (test code = PLTEST) PLATELET MORPHOLOGY (test code = PLTMORPH) CBC W/AUTO [id number] 05:30:00* Test Item Value Reference Range Interpretation Comments WHITE BLOOD CELL (test code = WBC) 7.1 K/mm3 4.5-12.5 N RED BLOOD CELL (test code = RBC) 4.44 mill/mm3 3.7-5.2 N HEMOGLOBIN (test code = HGB) 10.0 gram/dL 11.5-15.5 L HEMATOCRIT (test code = HCT) 34.6 % 36.0-46.0 L MEAN CELL VOLUME (test code = MCV) 77.9 fL 80-98 L MEAN CELL HGB (test code = MCH) 22.5 picogram 27.0-33.0 L MEAN CELL HGB CONCETRATION (test code = MCHC) 28.9 gram/dL 33.0-36. 0 L RED CELL DISTRIBUTION WIDTH (test code = RDW) 17.0 % 11.6-16. 2 H RED CELL DISTRIBUTION WIDTH SD (test code = RDW-SD) 47.8 fL 37 .0-51.0 N PLATELET COUNT (test code = PLT) 193 K/mm3 150-450 N MEAN PLATELET VOLUME (test code = MPV) 10.7 fL 6.7-11.0 N NEUTROPHIL % (test code = NT%) 69.9 % 39.0-69.0 H IMMATURE GRANULOCYTE % (test code = IG%) 0.7 % 0.0-5.0 N LYMPHOCYTE % (test code = LY%) 19.4 % 25.0-55.0 L MONOCYTE % (test code = MO%) 6.2 % 0.0-10.0 N EOSINOPHIL % (test code = EO%) 3.2 % 0.0-5.0 N BASOPHIL % (test code = BA%) 0.6 % 0.0-1.0 N NUCLEATED RBC % (test code = NRBC%) 0.0 % 0-0 N NEUTROPHIL # (test code = NT#) 4.96 K/mm3 1.8-7.7 N IMMATURE GRANULOCYTE # (test code = IG#) 0.05 x10 3/uL 0-0.03 H LYMPHOCYTE # (test code = LY#) 1.38 K/mm3 1.0-5.0 N MONOCYTE # (test code = MO#) 0.44 K/mm3 0-0.8 N EOSINOPHIL # (test code = EO#) 0.23 K/mm3 0.0-0.5 N BASOPHIL # (test code = BA#) 0.04 K/mm3 0.0-0.2 N NUCLEATED RBC # (test code = NRBC#) 0.00 K/mm3 0.0-0.1 N MANUAL DIFF REQUIRED (test code = MDIFF) NO, ONLY SCAN NEEDED DIFFERENTIAL [id number] 05:30:00* Test Item Value Reference Range Interpretation Comments STAIN ACCEPTABILITY (test code = STN ACCEPTABLE) MORPHOLOGY COMMENT (test code = MOC) PLATELET ESTIMATE (test code = PLTEST) PLATELET MORPHOLOGY (test code = PLTMORPH) CBC W/AUTO [id number] 05:30:00* Test Item Value Reference Range Interpretation Comments WHITE BLOOD CELL (test code = WBC) 7.1 K/mm3 4.5-12.5 N RED BLOOD CELL (test code = RBC) 4.44 mill/mm3 3.7-5.2 N HEMOGLOBIN (test code = HGB) 10.0 gram/dL 11.5-15.5 L HEMATOCRIT (test code = HCT) 34.6 % 36.0-46.0 L MEAN CELL VOLUME (test code = MCV) 77.9 fL 80-98 L MEAN CELL HGB (test code = MCH) 22.5 picogram 27.0-33.0 L MEAN CELL HGB CONCETRATION (test code = MCHC) 28.9 gram/dL 33.0-36. 0 L RED CELL DISTRIBUTION WIDTH (test code = RDW) 17.0 % 11.6-16. 2 H RED CELL DISTRIBUTION WIDTH SD (test code = RDW-SD) 47.8 fL 37 .0-51.0 N PLATELET COUNT (test code = PLT) 193 K/mm3 150-450 N MEAN PLATELET VOLUME (test code = MPV) 10.7 fL 6.7-11.0 N NEUTROPHIL % (test code = NT%) 69.9 % 39.0-69.0 H IMMATURE GRANULOCYTE % (test code = IG%) 0.7 % 0.0-5.0 N LYMPHOCYTE % (test code = LY%) 19.4 % 25.0-55.0 L MONOCYTE % (test code = MO%) 6.2 % 0.0-10.0 N EOSINOPHIL % (test code = EO%) 3.2 % 0.0-5.0 N BASOPHIL % (test code = BA%) 0.6 % 0.0-1.0 N NUCLEATED RBC % (test code = NRBC%) 0.0 % 0-0 N NEUTROPHIL # (test code = NT#) 4.96 K/mm3 1.8-7.7 N IMMATURE GRANULOCYTE # (test code = IG#) 0.05 x10 3/uL 0-0.03 H LYMPHOCYTE # (test code = LY#) 1.38 K/mm3 1.0-5.0 N MONOCYTE # (test code = MO#) 0.44 K/mm3 0-0.8 N EOSINOPHIL # (test code = EO#) 0.23 K/mm3 0.0-0.5 N BASOPHIL # (test code = BA#) 0.04 K/mm3 0.0-0.2 N NUCLEATED RBC # (test code = NRBC#) 0.00 K/mm3 0.0-0.1 N MANUAL DIFF REQUIRED (test code = MDIFF) NO, ONLY SCAN NEEDED DIFFERENTIAL [id number] 05:30:00* Test Item Value Reference Range Interpretation Comments STAIN ACCEPTABILITY (test code = STN ACCEPTABLE) CABOT RINGS (test code = CAB) MORPHOLOGY COMMENT (test code = MOC) PLATELET ESTIMATE (test code = PLTEST) PLATELET MORPHOLOGY (test code = PLTMORPH) COMPREHENSIVE METABOLIC [id number] 05:24:00* Test Item Value Reference Range Interpretation Comments SODIUM (test code = NA) 139 mmol/L 136-145 N POTASSIUM (test code = K) 3.7 mmol/L 3.5-5.1 N CHLORIDE (test code = CL) 100.0 mmol/L 98-107 N CARBON DIOXIDE (test code = CO2) mmol/L 21-32 ANION GAP (test code = GAP) 10-20 GLUCOSE (test code = GLU) mg/dL 74-106 BLOOD UREA NITROGEN (test code = BUN) mg/dL 7-18 GLOMERULAR FILTRATION RATE (test code = GFR) mL/min >=60 CREATININE (test code = CREAT) mg/dL 0.55-1.02 BUN/CREATININE RATIO (test code = BUN/CREA) 10-20 TOTAL PROTEIN (test code = PROT) gram/dL 6.4-8.2 ALBUMIN (test code = ALB) g/dL 3.4-5.0 GLOBULIN (test code = GLOB) gram/dL 2.7-4.2 ALBUMIN/GLOBULIN RATIO (test code = A/G) 0.75-1.50 CALCIUM (test code = CA) mg/dL 8.5-10.1 BILIRUBIN TOTAL (test code = BILT) mg/dL 0.0-1.0 SGOT/AST (test code = AST) IUnit/L 15-37 SGPT/ALT (test code = ALT) IUnit/L 12-78 ALKALINE PHOSPHATASE TOTAL (test code = ALKP) IUnit/L 45-117 [id number] 20:32:00* Test Item Value Reference Range Interpretation Comments GLUBED (test code = GLUBED) 108 mg/dL 74-106 H Performed by certified glue spreading machine operator at [facility] [id number] 16:44:00* Test Item Value Reference Range Interpretation Comments GLUBED (test code = GLUBED) 125 mg/dL 74-106 H Performed by certified glue spreading machine operator at [facility] Coronavirus 2019 nCoV [id number] 16:38:00* Test Item Value Reference Range Interpretation Comments Coronavirus 2019 nCoV Bedside (test code = COVNONPUIBED) Negative [id number] 12:17:00* Test Item Value Reference Range Interpretation Comments GLUBED (test code = GLUBED) 171 mg/dL 74-106 H Performed by certified glue spreading machine operator at [facility] [id number] 08:34:00* Test Item Value Reference Range Interpretation Comments GLUBED (test code = GLUBED) 341 mg/dL 74-106 H Performed by certified glue spreading machine operator at [facility] - CT CHEST [id number] 06:53:00 Name: KALYANI TALAVERA [facility] : 1955 Age/S: 64 / F [address] [facility] Unit #: [id number] Loc: [place] [address] Phys: Rigo Alexander MD Acct: [id number] Dis Date: Status: ADM IN PHONE #: [phone] Exam Date: 01/08/20206 FAX #: [phone] Reason: interstitial lung disease, pulmonary HTN EXAMS: CPT CODE: [id number] CT CHEST W/CONTRAST [id number] HISTORY: Interstitial lung disease and pulmonary hypertension. COMPARISON: October 17, 2019. Location: TH. CT chest without contrast: Automated exposure control. Unremarkable aorta without aneurysm or dissection. Mildly enlarged pulmonary arteries may suggest pulmonary arterial hypertension. No embolism (not performed as PE protocol). Well-opacified SVC and the neck vasculature. Mildly enlarged however incompletely included thyroid glands. Esophageal wall is mildly thickened. Correlate for esophagitis. No pathologic adenopathy. Cardiomegaly without pericardial effusion. Visualized upper abdomen is unremarkable with thickened gastric wall likely from underdistention. Subcutaneous tissues and musculature are normal in appearance. No lytic or blastic lesions are noted within the bony skeleton. Groundglass opacities bilaterally without honeycombing or fibrosis or bronchiectasis. Dependent changes. This is not typical for UIP. Correlate for an NSIP. No consolidation or infiltrates or effusion or congestion. IMPRESSION: Nonspecific groundglass opacities with dependent changes without h oneycombing or fibrosis or bronchiectasis. Correlate for NSIP. This is not typical for UIP. No pathologic adenopathy. Mildly dilated pulmona ry arteries could suggest pulmonary arterial hypertension. Unremarkable aorta. at 0653 Reported and signed by: Solomon Chowdhury M.D. CC: Rigo Alexander MD; Alfa Cassidy MD; Benjamin Masters Technologist:RADHA CLEMENTS(R)(CT); JORDEN CTDI: DLP: Trnscb Date/Time: 01/09/2020 (065 3) [email or web address] Orig Print D/T: S: 01/09/2020 (0656) YANETH VARGAS 1 Signed Report PROTHROMBIN [id number] 05:24:00* Test Item Value Reference Range Interpretation Comments PROTHROMBIN TIME PATIENT (test code = PTP) 11.8 seconds 9.0-14.0 N INTERNATIONAL NORMAL RATIO (test code = INR) 1.0 0.8-1.2 N The therapeutic range for oral anticoagulant therapy formost indications is an international normalized ratio (INR)of between 2.0 and 3.0. The recommended therapeutic INRrange for various clinical situations is listed below: Clinical Situation INR range Pulmonary e mbolism treatment (2.0-3.0)Venous thrombosis treatmentVenous thrombosis prophylaxis (high risk surgery)Prevention of systemic embolism from: Acute myocardial infarction Valvular heart disease Atrial fibrillation Mechanical prosthetic heart valves (2.5-3.5) IS PATIENT ON ANTICOAGULANTS? NTHROMBOPLASTIN TIME [id number] 05:24:00* Test Item Value Reference Range Interpretation Comments THROMBOPLASTIN TIME PARTIAL (test code = PTT) 27.5 seconds 23.0-37. 0 N IS PATIENT ON ANTICOAGULANTS? [id number] 20:06:00* Test Item Value Reference Range Interpretation Comments GLUBED (test code = GLUBED) 162 mg/dL 74-106 H Performed by certified glue spreading machine operator at [facility] [id number] 17:04:00* Test Item Value Reference Range Interpretation Comments GLUBED (test code = GLUBED) 135 mg/dL 74-106 H Performed by certified glue spreading machine operator at [facility] [id number] 12:10:00* Test Item Value Reference Range Interpretation Comments GLUBED (test code = GLUBED) 375 mg/dL 74-106 H Performed by certified glue spreading machine operator at [facility] [id number] 08:11:00* Test Item Value Reference Range Interpretation Comments GLUBED (test code = GLUBED) 259 mg/dL 74-106 H Performed by certified glue spreading machine operator at [facility] CBC W/AUTO [id number] 05:20:00* Test Item Value Reference Range Interpretation Comments WHITE BLOOD CELL (test code = WBC) 5.8 K/mm3 4.5-12.5 N RED BLOOD CELL (test code = RBC) 3.98 mill/mm3 3.7-5.2 N HEMOGLOBIN (test code = HGB) 9.2 gram/dL 11.5-15.5 L HEMATOCRIT (test code = HCT) 31.5 % 36.0-46.0 L MEAN CELL VOLUME (test code = MCV) 79.1 fL 80-98 L MEAN CELL HGB (test code = MCH) 23.1 picogram 27.0-33.0 L MEAN CELL HGB CONCETRATION (test code = MCHC) 29.2 gram/dL 33.0-36. 0 L RED CELL DISTRIBUTION WIDTH (test code = RDW) 17.2 % 11.6-16. 2 H RED CELL DISTRIBUTION WIDTH SD (test code = RDW-SD) 48.2 fL 37 .0-51.0 N PLATELET COUNT (test code = PLT) 189 K/mm3 150-450 N MEAN PLATELET VOLUME (test code = MPV) 10.5 fL 6.7-11.0 N NEUTROPHIL % (test code = NT%) 64.0 % 39.0-69.0 N IMMATURE GRANULOCYTE % (test code = IG%) 1.5 % 0.0-5.0 N LYMPHOCYTE % (test code = LY%) 24.6 % 25.0-55.0 L MONOCYTE % (test code = MO%) 6.2 % 0.0-10.0 N EOSINOPHIL % (test code = EO%) 2.8 % 0.0-5.0 N BASOPHIL % (test code = BA%) 0.9 % 0.0-1.0 N NUCLEATED RBC % (test code = NRBC%) 0.3 % 0-0 H NEUTROPHIL # (test code = NT#) 3.72 K/mm3 1.8-7.7 N IMMATURE GRANULOCYTE # (test code = IG#) 0.09 x10 3/uL 0-0.03 H LYMPHOCYTE # (test code = LY#) 1.43 K/mm3 1.0-5.0 N MONOCYTE # (test code = MO#) 0.36 K/mm3 0-0.8 N EOSINOPHIL # (test code = EO#) 0.16 K/mm3 0.0-0.5 N BASOPHIL # (test code = BA#) 0.05 K/mm3 0.0-0.2 N NUCLEATED RBC # (test code = NRBC#) 0.02 K/mm3 0.0-0.1 N MANUAL DIFF REQUIRED (test code = MDIFF) NO, ONLY SCAN NEEDED DIFFERENTIAL [id number] 05:20:00* Test Item Value Reference Range Interpretation Comments STAIN ACCEPTABILITY (test code = STN ACCEPTABLE) STAIN ACCEPTABLE POLYCHROMASIA (test code = POLC) 1+ HYPOCHROMIA (test code = HYPO) 1+ POIKILOCYTOSIS (test code = POIK) 1+ ANISOCYTOSIS (test code = ANISO) 2+ MICROCYTOSIS (test code = MICR) 2+ TEAR DROP CELLS (test code = TEAR) 1+ PLATELET ESTIMATE (test code = PLTEST) ADEQUATE PLATELET MORPHOLOGY (test code = PLTMORPH) NORMAL B-TYPE NATRIURETIC [id number] 05:03:00* Test Item Value Reference Range Interpretation Comments B-TYPE NATRIURETIC PEPTIDE (test code = BNP) 24.60 pgram/mL 0-100 N COMPREHENSIVE METABOLIC [id number] 04:59:00* Test Item Value Reference Range Interpretation Comments SODIUM (test code = NA) 140 mmol/L 136-145 N POTASSIUM (test code = K) 3.6 mmol/L 3.5-5.1 N CHLORIDE (test code = CL) 102.0 mmol/L 98-107 N CARBON DIOXIDE (test code = CO2) 31.0 mmol/L 21-32 N ANION GAP (test code = GAP) 10.6 10-20 N GLUCOSE (test code = GLU) 235 mg/dL 74-106 H BLOOD UREA NITROGEN (test code = BUN) 39 mg/dL 7-18 H GLOMERULAR FILTRATION RATE (test code = GFR) > 60 mL/min >=60 Estimated GFR by using Modified MDRD formula.Chronic kidney disease is defined as either kidney damageor GFR <60 mL/min/1.73 m2 for >3 months. CREATININE (test code = CREAT) 0.90 mg/dL 0.55-1.02 N Note change in reference range due to change in reagent. BUN/CREATININE RATIO (test code = BUN/CREA) 42.2 10-20 H TOTAL PROTEIN (test code = PROT) 6.7 gram/dL 6.4-8.2 N ALBUMIN (test code = ALB) 3.1 g/dL 3.4-5.0 L GLOBULIN (test code = GLOB) 3.6 gram/dL 2.7-4.2 N ALBUMIN/GLOBULIN RATIO (test code = A/G) 0.9 0.75-1.50 N CALCIUM (test code = CA) 8.4 mg/dL 8.5-10.1 L BILIRUBIN TOTAL (test code = BILT) 0.30 mg/dL 0.0-1.0 N SGOT/AST (test code = AST) 12 IUnit/L 15-37 L SGPT/ALT (test code = ALT) 42 IUnit/L 12-78 N ALKALINE PHOSPHATASE TOTAL (test code = ALKP) 108 IUnit/L 45-117 N Note change in reference range due to change in reagent. COMPREHENSIVE METABOLIC [id number] 04:50:00* Test Item Value Reference Range Interpretation Comments SODIUM (test code = NA) 140 mmol/L 136-145 N POTASSIUM (test code = K) 3.6 mmol/L 3.5-5.1 N CHLORIDE (test code = CL) 102.0 mmol/L 98-107 N CARBON DIOXIDE (test code = CO2) mmol/L 21-32 ANION GAP (test code = GAP) 10-20 GLUCOSE (test code = GLU) mg/dL 74-106 BLOOD UREA NITROGEN (test code = BUN) mg/dL 7-18 GLOMERULAR FILTRATION RATE (test code = GFR) mL/min >=60 CREATININE (test code = CREAT) mg/dL 0.55-1.02 BUN/CREATININE RATIO (test code = BUN/CREA) 10-20 TOTAL PROTEIN (test code = PROT) gram/dL 6.4-8.2 ALBUMIN (test code = ALB) g/dL 3.4-5.0 GLOBULIN (test code = GLOB) gram/dL 2.7-4.2 ALBUMIN/GLOBULIN RATIO (test code = A/G) 0.75-1.50 CALCIUM (test code = CA) mg/dL 8.5-10.1 BILIRUBIN TOTAL (test code = BILT) mg/dL 0.0-1.0 SGOT/AST (test code = AST) IUnit/L 15-37 SGPT/ALT (test code = ALT) IUnit/L 12-78 ALKALINE PHOSPHATASE TOTAL (test code = ALKP) IUnit/L 45-117 CBC W/AUTO [id number] 04:45:00* Test Item Value Reference Range Interpretation Comments WHITE BLOOD CELL (test code = WBC) 5.8 K/mm3 4.5-12.5 N RED BLOOD CELL (test code = RBC) 3.98 mill/mm3 3.7-5.2 N HEMOGLOBIN (test code = HGB) 9.2 gram/dL 11.5-15.5 L HEMATOCRIT (test code = HCT) 31.5 % 36.0-46.0 L MEAN CELL VOLUME (test code = MCV) 79.1 fL 80-98 L MEAN CELL HGB (test code = MCH) 23.1 picogram 27.0-33.0 L MEAN CELL HGB CONCETRATION (test code = MCHC) 29.2 gram/dL 33.0-36. 0 L RED CELL DISTRIBUTION WIDTH (test code = RDW) 17.2 % 11.6-16. 2 H RED CELL DISTRIBUTION WIDTH SD (test code = RDW-SD) 48.2 fL 37 .0-51.0 N PLATELET COUNT (test code = PLT) 189 K/mm3 150-450 N MEAN PLATELET VOLUME (test code = MPV) 10.5 fL 6.7-11.0 N NEUTROPHIL % (test code = NT%) 64.0 % 39.0-69.0 N IMMATURE GRANULOCYTE % (test code = IG%) 1.5 % 0.0-5.0 N LYMPHOCYTE % (test code = LY%) 24.6 % 25.0-55.0 L MONOCYTE % (test code = MO%) 6.2 % 0.0-10.0 N EOSINOPHIL % (test code = EO%) 2.8 % 0.0-5.0 N BASOPHIL % (test code = BA%) 0.9 % 0.0-1.0 N NUCLEATED RBC % (test code = NRBC%) 0.3 % 0-0 H NEUTROPHIL # (test code = NT#) 3.72 K/mm3 1.8-7.7 N IMMATURE GRANULOCYTE # (test code = IG#) 0.09 x10 3/uL 0-0.03 H LYMPHOCYTE # (test code = LY#) 1.43 K/mm3 1.0-5.0 N MONOCYTE # (test code = MO#) 0.36 K/mm3 0-0.8 N EOSINOPHIL # (test code = EO#) 0.16 K/mm3 0.0-0.5 N BASOPHIL # (test code = BA#) 0.05 K/mm3 0.0-0.2 N NUCLEATED RBC # (test code = NRBC#) 0.02 K/mm3 0.0-0.1 N MANUAL DIFF REQUIRED (test code = MDIFF) NO, ONLY SCAN NEEDED DIFFERENTIAL [id number] 04:45:00* Test Item Value Reference Range Interpretation Comments STAIN ACCEPTABILITY (test code = STN ACCEPTABLE) CABOT RINGS (test code = CAB) MORPHOLOGY COMMENT (test code = MOC) PLATELET ESTIMATE (test code = PLTEST) PLATELET MORPHOLOGY (test code = PLTMORPH) CBC W/AUTO [id number] 04:45:00* Test Item Value Reference Range Interpretation Comments WHITE BLOOD CELL (test code = WBC) 5.8 K/mm3 4.5-12.5 N RED BLOOD CELL (test code = RBC) 3.98 mill/mm3 3.7-5.2 N HEMOGLOBIN (test code = HGB) 9.2 gram/dL 11.5-15.5 L HEMATOCRIT (test code = HCT) 31.5 % 36.0-46.0 L MEAN CELL VOLUME (test code = MCV) 79.1 fL 80-98 L MEAN CELL HGB (test code = MCH) 23.1 picogram 27.0-33.0 L MEAN CELL HGB CONCETRATION (test code = MCHC) 29.2 gram/dL 33.0-36. 0 L RED CELL DISTRIBUTION WIDTH (test code = RDW) 17.2 % 11.6-16. 2 H RED CELL DISTRIBUTION WIDTH SD (test code = RDW-SD) 48.2 fL 37 .0-51.0 N PLATELET COUNT (test code = PLT) 189 K/mm3 150-450 N MEAN PLATELET VOLUME (test code = MPV) 10.5 fL 6.7-11.0 N NEUTROPHIL % (test code = NT%) 64.0 % 39.0-69.0 N IMMATURE GRANULOCYTE % (test code = IG%) 1.5 % 0.0-5.0 N LYMPHOCYTE % (test code = LY%) 24.6 % 25.0-55.0 L MONOCYTE % (test code = MO%) 6.2 % 0.0-10.0 N EOSINOPHIL % (test code = EO%) 2.8 % 0.0-5.0 N BASOPHIL % (test code = BA%) 0.9 % 0.0-1.0 N NUCLEATED RBC % (test code = NRBC%) 0.3 % 0-0 H NEUTROPHIL # (test code = NT#) 3.72 K/mm3 1.8-7.7 N IMMATURE GRANULOCYTE # (test code = IG#) 0.09 x10 3/uL 0-0.03 H LYMPHOCYTE # (test code = LY#) 1.43 K/mm3 1.0-5.0 N MONOCYTE # (test code = MO#) 0.36 K/mm3 0-0.8 N EOSINOPHIL # (test code = EO#) 0.16 K/mm3 0.0-0.5 N BASOPHIL # (test code = BA#) 0.05 K/mm3 0.0-0.2 N NUCLEATED RBC # (test code = NRBC#) 0.02 K/mm3 0.0-0.1 N MANUAL DIFF REQUIRED (test code = MDIFF) NO, ONLY SCAN NEEDED DIFFERENTIAL [id number] 04:45:00* Test Item Value Reference Range Interpretation Comments STAIN ACCEPTABILITY (test code = STN ACCEPTABLE) CABOT RINGS (test code = CAB) MORPHOLOGY COMMENT (test code = MOC) PLATELET ESTIMATE (test code = PLTEST) PLATELET MORPHOLOGY (test code = PLTMORPH) CBC W/AUTO [id number] 04:45:00* Test Item Value Reference Range Interpretation Comments WHITE BLOOD CELL (test code = WBC) 5.8 K/mm3 4.5-12.5 N RED BLOOD CELL (test code = RBC) 3.98 mill/mm3 3.7-5.2 N HEMOGLOBIN (test code = HGB) 9.2 gram/dL 11.5-15.5 L HEMATOCRIT (test code = HCT) 31.5 % 36.0-46.0 L MEAN CELL VOLUME (test code = MCV) 79.1 fL 80-98 L MEAN CELL HGB (test code = MCH) 23.1 picogram 27.0-33.0 L MEAN CELL HGB CONCETRATION (test code = MCHC) 29.2 gram/dL 33.0-36. 0 L RED CELL DISTRIBUTION WIDTH (test code = RDW) 17.2 % 11.6-16. 2 H RED CELL DISTRIBUTION WIDTH SD (test code = RDW-SD) 48.2 fL 37 .0-51.0 N PLATELET COUNT (test code = PLT) 189 K/mm3 150-450 N MEAN PLATELET VOLUME (test code = MPV) 10.5 fL 6.7-11.0 N NEUTROPHIL % (test code = NT%) 64.0 % 39.0-69.0 N IMMATURE GRANULOCYTE % (test code = IG%) 1.5 % 0.0-5.0 N LYMPHOCYTE % (test code = LY%) 24.6 % 25.0-55.0 L MONOCYTE % (test code = MO%) 6.2 % 0.0-10.0 N EOSINOPHIL % (test code = EO%) 2.8 % 0.0-5.0 N BASOPHIL % (test code = BA%) 0.9 % 0.0-1.0 N NUCLEATED RBC % (test code = NRBC%) 0.3 % 0-0 H NEUTROPHIL # (test code = NT#) 3.72 K/mm3 1.8-7.7 N IMMATURE GRANULOCYTE # (test code = IG#) 0.09 x10 3/uL 0-0.03 H LYMPHOCYTE # (test code = LY#) 1.43 K/mm3 1.0-5.0 N MONOCYTE # (test code = MO#) 0.36 K/mm3 0-0.8 N EOSINOPHIL # (test code = EO#) 0.16 K/mm3 0.0-0.5 N BASOPHIL # (test code = BA#) 0.05 K/mm3 0.0-0.2 N NUCLEATED RBC # (test code = NRBC#) 0.02 K/mm3 0.0-0.1 N MANUAL DIFF REQUIRED (test code = MDIFF) NO, ONLY SCAN NEEDED DIFFERENTIAL [id number] 04:45:00* Test Item Value Reference Range Interpretation Comments STAIN ACCEPTABILITY (test code = STN ACCEPTABLE) MORPHOLOGY COMMENT (test code = MOC) PLATELET ESTIMATE (test code = PLTEST) PLATELET MORPHOLOGY (test code = PLTMORPH) CBC W/AUTO [id number] 04:45:00* Test Item Value Reference Range Interpretation Comments WHITE BLOOD CELL (test code = WBC) 5.8 K/mm3 4.5-12.5 N RED BLOOD CELL (test code = RBC) 3.98 mill/mm3 3.7-5.2 N HEMOGLOBIN (test code = HGB) 9.2 gram/dL 11.5-15.5 L HEMATOCRIT (test code = HCT) 31.5 % 36.0-46.0 L MEAN CELL VOLUME (test code = MCV) 79.1 fL 80-98 L MEAN CELL HGB (test code = MCH) 23.1 picogram 27.0-33.0 L MEAN CELL HGB CONCETRATION (test code = MCHC) 29.2 gram/dL 33.0-36. 0 L RED CELL DISTRIBUTION WIDTH (test code = RDW) 17.2 % 11.6-16. 2 H RED CELL DISTRIBUTION WIDTH SD (test code = RDW-SD) 48.2 fL 37 .0-51.0 N PLATELET COUNT (test code = PLT) 189 K/mm3 150-450 N MEAN PLATELET VOLUME (test code = MPV) 10.5 fL 6.7-11.0 N NEUTROPHIL % (test code = NT%) 64.0 % 39.0-69.0 N IMMATURE GRANULOCYTE % (test code = IG%) 1.5 % 0.0-5.0 N LYMPHOCYTE % (test code = LY%) 24.6 % 25.0-55.0 L MONOCYTE % (test code = MO%) 6.2 % 0.0-10.0 N EOSINOPHIL % (test code = EO%) 2.8 % 0.0-5.0 N BASOPHIL % (test code = BA%) 0.9 % 0.0-1.0 N NUCLEATED RBC % (test code = NRBC%) 0.3 % 0-0 H NEUTROPHIL # (test code = NT#) 3.72 K/mm3 1.8-7.7 N IMMATURE GRANULOCYTE # (test code = IG#) 0.09 x10 3/uL 0-0.03 H LYMPHOCYTE # (test code = LY#) 1.43 K/mm3 1.0-5.0 N MONOCYTE # (test code = MO#) 0.36 K/mm3 0-0.8 N EOSINOPHIL # (test code = EO#) 0.16 K/mm3 0.0-0.5 N BASOPHIL # (test code = BA#) 0.05 K/mm3 0.0-0.2 N NUCLEATED RBC # (test code = NRBC#) 0.02 K/mm3 0.0-0.1 N MANUAL DIFF REQUIRED (test code = MDIFF) NO, ONLY SCAN NEEDED DIFFERENTIAL [id number] 04:45:00* Test Item Value Reference Range Interpretation Comments STAIN ACCEPTABILITY (test code = STN ACCEPTABLE) CABOT RINGS (test code = CAB) MORPHOLOGY COMMENT (test code = MOC) PLATELET ESTIMATE (test code = PLTEST) PLATELET MORPHOLOGY (test code = PLTMORPH) [id number] 23:24:00* Test Item Value Reference Range Interpretation Comments GLUBED (test code = GLUBED) 292 mg/dL 74-106 H Performed by certified glue spreading machine operator at [facility] [id number] 19:46:00* Test Item Value Reference Range Interpretation Comments GLUBED (test code = GLUBED) 306 mg/dL 74-106 H Performed by certified glue spreading machine operator at [facility] - XR CHEST 1 [id number] 19:39:00 FAX: Rigo Mccormick MD [phone] [place]: St: ADM FAX: Alfa Moscoso MD [phone] FAX: Benjamin Francis MD [phone] Name: KALYANI TALAVERA [facility] : 1955 Age/S: 64/F [address] Unit #: [id number] Loc: V.3042 [place] [address] Phys: Rigo Alexander MD Acct: [id number] Dis Date: Status: ADM IN ONE #: [phone] Exam Date: 01/07/2020 1835 FAX #: [phone] Reason: chf EXAMS: CPT CODE: [id number] XR CHEST 1 V 69341 EXAM: Chest x- ray, one view; INFORMATION: Shortness of breath, CHF; IMPRESSION: 1. Compared with yesterday's study, the left lung is sli ghtly better aerated; 2. No further significant changes; persist ent cardiomegaly and interstitial edema consistent with left heart failu re. Location code: [facility] Electronically Sig rainer by Gregory Bravo on 01/07/2020 at 1939 Reported and signed by: Jc Bravo M.D. CC: Rigo Alexander MD; Alfa Cassidy MD; Benjamin Masters Technologist: ASH DavidR Trnscrd Date/Time/By: 01/07/2020 (1938) : By: LeanneGRW Orig Print D/T: S: 0 01/07/2020 (1941) PAGE 1 Signed Re port [id number] 16:14:00* Test Item Value Reference Range Interpretation Comments GLUBED (test code = GLUBED) 67 mg/dL 74-106 L Performed by certified glue spreading machine operator at [facility] [id number] 11:11:00* Test Item Value Reference Range Interpretation Comments GLUBED (test code = GLUBED) 320 mg/dL 74-106 H Performed by certified glue spreading machine operator at [facility] [id number] 07:56:00* Test Item Value Reference Range Interpretation Comments GLUBED (test code = GLUBED) 426 mg/dL 74-106 H Performed by certified glue spreading machine operator at [facility] [id number] 20:36:00* Test Item Value Reference Range Interpretation Comments GLUBED (test code = GLUBED) > 500 mg/dL 74-106 HH [facility] certified glue spreading machine [facility]~ - US CHST W/[id number] 20:29:00 Name: KALYANI TALAVERA [facility] : 1955 Age/S: 64 / F [address] [facility] Unit #: [id number] Loc: [place] [address] Phys: Rigo Alexander MD Acct: [id number] Dis Date: Status: ADM IN PHONE #: [phone] Exam Date: 01/06/2020 1950 FAX #: [phone] Reason: pleural effusions EXAMS: CPT CODE: [id number] US CHST W/MEDIASTINUM 82667 EXAM: Ultrasound of the chest; INFORMATION: Shortness of breath, pleural effusions? IMPRESSION: No sonographic evidence of pleural effusions. Location code: [facility] at 2028 Reported and signed by: Jc Bravo M.D. CC: Rigo Alexander MD; Benjamin Masters Technologist: Tamy Lanier RDMS Trnscb Date/Time: 01/06/2020 (2028) [email or web address] Orig Print D/T: S: 01/06/2020 (2031) Probe: PAGE 1 Signed Report [id number] 18:13:00* Test Item Value Reference Range Interpretation Comments GLUBED (test code = GLUBED) > 500 mg/dL 74-106 HH [facility] glue spreading [facility]~ [id number] 16:16:00* Test Item Value Reference Range Interpretation Comments GLUBED (test code = GLUBED) > 500 mg/dL 74-106 HH [facility] certified glue spreading machine [facility]~ [id number] 13:43:00* Test Item Value Reference Range Interpretation Comments TROPONIN-I (test code = TROPI) <0.015 ng/mL 0-0.045 N COMMENTS TO PATIENT EDUCATOR: COLLECT 3 HOURS AFTER PREVIOUS SAMPLEB-TYPE NATRIURETIC [id number] 10:13:00* Test Item Value Reference Range Interpretation Comments B-TYPE NATRIURETIC PEPTIDE (test code = BNP) 44.58 pgram/mL 0-100 N BASIC METABOLIC [id number] 06:56:00* Test Item Value Reference Range Interpretation Comments SODIUM (test code = NA) 142 mmol/L 136-145 N POTASSIUM (test code = K) 4.3 mmol/L 3.5-5.1 N CHLORIDE (test code = CL) 111.0 mmol/L 98-107 H CARBON DIOXIDE (test code = CO2) 26.0 mmol/L 21-32 N ANION GAP (test code = GAP) 9.3 10-20 L GLUCOSE (test code = GLU) 200 mg/dL 74-106 H BLOOD UREA NITROGEN (test code = BUN) 25 mg/dL 7-18 H GLOMERULAR FILTRATION RATE (test code = GFR) > 60 mL/min >=60 Estimated GFR by using Modified MDRD formula.Chronic kidney disease is defined as either kidney damageor GFR <60 mL/min/1.73 m2 for >3 months. CREATININE (test code = CREAT) 0.80 mg/dL 0.55-1.02 N Note change in reference range due to change in reagent. BUN/CREATININE RATIO (test code = BUN/CREA) 31.5 10-20 H CALCIUM (test code = CA) 8.8 mg/dL 8.5-10.1 N [id number] 06:56:00* Test Item Value Reference Range Interpretation Comments TROPONIN-I (test code = TROPI) <0.015 ng/mL 0-0.045 N BASIC METABOLIC [id number] 06:43:00* Test Item Value Reference Range Interpretation Comments SODIUM (test code = NA) 142 mmol/L 136-145 N POTASSIUM (test code = K) 4.3 mmol/L 3.5-5.1 N CHLORIDE (test code = CL) 111.0 mmol/L 98-107 H CARBON DIOXIDE (test code = CO2) mmol/L 21-32 ANION GAP (test code = GAP) 10-20 GLUCOSE (test code = GLU) mg/dL 74-106 BLOOD UREA NITROGEN (test code = BUN) mg/dL 7-18 GLOMERULAR FILTRATION RATE (test code = GFR) mL/min >=60 CREATININE (test code = CREAT) mg/dL 0.55-1.02 BUN/CREATININE RATIO (test code = BUN/CREA) 10-20 CALCIUM (test code = CA) mg/dL 8.5-10.1 [id number] 06:43:00* Test Item Value Reference Range Interpretation Comments TROPONIN-I (test code = TROPI) ng/mL 0-0.045 CBC W/O [id number] 06:22:00* Test Item Value Reference Range Interpretation Comments WHITE BLOOD CELL (test code = WBC) 5.2 K/mm3 4.5-12.5 N RED BLOOD CELL (test code = RBC) 3.75 mill/mm3 3.7-5.2 N HEMOGLOBIN (test code = HGB) 8.6 gram/dL 11.5-15.5 L HEMATOCRIT (test code = HCT) 30.4 % 36.0-46.0 L MEAN CELL VOLUME (test code = MCV) 81.1 fL 80-98 N MEAN CELL HGB (test code = MCH) 22.9 picogram 27.0-33.0 L MEAN CELL HGB CONCETRATION (test code = MCHC) 28.3 gram/dL 33.0-36. 0 L RED CELL DISTRIBUTION WIDTH (test code = RDW) 17.4 % 11.6-16. 2 H PLATELET COUNT (test code = PLT) 172 K/mm3 150-450 N MEAN PLATELET VOLUME (test code = MPV) 10.2 fL 6.7-11.0 N - XR CHEST 1 [id number] 06:03:00 FAX: Colton Khalil MD [phone] [place]: St: [facility] FAX: Benjamin Francis MD [phone] Name: KALYANI TALAVERA [facility] : 1955 Age/S: 64/F [address] [facility] Unit #: [id number] Loc: [place] [address] Phys: Colton Khalil MD Acct: [id number] Dis Date: Status: REG ER PHONE #: [phone] Exam Date: 01/06/2020 0539 FAX #: [phone] Reason: Shortness of Breath EXAMS: CPT CODE: [id number] XR CHEST 1 V 13353 HISTORY: Shortness of breath Location: C3 COMPARISON:12/23/2019 FINDINGS: There is cardiomegaly with vascular congestion perihilar opacity. No pneumothorax. No other changes compared to prior study. IMPRESSION: 1. Findings of CHF/volume overload increased compared to prior exam. at 0603 Reported and signed by: Kizzy Dietrich MD CC: Colton Khalil MD; Benjamin Masters Technologist: Kizzy Cisse RT(R) Trnscrd Date/Time/By: 01/06/2020 (602) : By: [email or web address] Orig Print D/T: S: 01/06/2020 (605) PAGE 1 Signed Report [id number] 07:49:00* Test Item Value Reference Range Interpretation Comments GLUBED (test code = GLUBED) 237 mg/dL 74-106 H Performed by certified glue spreading machine operator at [facility] BASIC METABOLIC [id number] 05:57:00* Test Item Value Reference Range Interpretation Comments SODIUM (test code = NA) 139 mmol/L 136-145 N POTASSIUM (test code = K) 4.9 mmol/L 3.5-5.1 N CHLORIDE (test code = CL) 106.0 mmol/L 98-107 N CARBON DIOXIDE (test code = CO2) 24.0 mmol/L 21-32 N ANION GAP (test code = GAP) 13.9 10-20 N GLUCOSE (test code = GLU) 248 mg/dL 74-106 H BLOOD UREA NITROGEN (test code = BUN) 33 mg/dL 7-18 H GLOMERULAR FILTRATION RATE (test code = GFR) > 60 mL/min >=60 Estimated GFR by using Modified MDRD formula.Chronic kidney disease is defined as either kidney damageor GFR <60 mL/min/1.73 m2 for >3 months. CREATININE (test code = CREAT) 0.90 mg/dL 0.55-1.02 N Note change in reference range due to change in reagent. BUN/CREATININE RATIO (test code = BUN/CREA) 35.6 10-20 H CALCIUM (test code = CA) 8.5 mg/dL 8.5-10.1 N BASIC METABOLIC [id number] 05:49:00* Test Item Value Reference Range Interpretation Comments SODIUM (test code = NA) 139 mmol/L 136-145 N POTASSIUM (test code = K) 4.9 mmol/L 3.5-5.1 N CHLORIDE (test code = CL) 106.0 mmol/L 98-107 N CARBON DIOXIDE (test code = CO2) mmol/L 21-32 ANION GAP (test code = GAP) 10-20 GLUCOSE (test code = GLU) mg/dL 74-106 BLOOD UREA NITROGEN (test code = BUN) mg/dL 7-18 GLOMERULAR FILTRATION RATE (test code = GFR) mL/min >=60 CREATININE (test code = CREAT) mg/dL 0.55-1.02 BUN/CREATININE RATIO (test code = BUN/CREA) 10-20 CALCIUM (test code = CA) mg/dL 8.5-10.1 [id number] 20:28:00* Test Item Value Reference Range Interpretation Comments GLUBED (test code = GLUBED) 211 mg/dL 74-106 H Performed by certified glue spreading machine operator at [facility] [id number] 17:59:00* Test Item Value Reference Range Interpretation Comments GLUBED (test code = GLUBED) 254 mg/dL 74-106 H Performed by certified glue spreading machine operator at [facility] [id number] 17:59:00* Test Item Value Reference Range Interpretation Comments GLUBED (test code = GLUBED) 259 mg/dL 74-106 H Performed by certified glue spreading machine operator at [facility] BASIC METABOLIC [id number] 11:13:00* Test Item Value Reference Range Interpretation Comments SODIUM (test code = NA) 136 mmol/L 136-145 N POTASSIUM (test code = K) 4.8 mmol/L 3.5-5.1 N CHLORIDE (test code = CL) 100.0 mmol/L 98-107 N CARBON DIOXIDE (test code = CO2) 27.0 mmol/L 21-32 N ANION GAP (test code = GAP) 13.8 10-20 N GLUCOSE (test code = GLU) 348 mg/dL 74-106 H BLOOD UREA NITROGEN (test code = BUN) 33 mg/dL 7-18 H GLOMERULAR FILTRATION RATE (test code = GFR) 50 mL/min >=60 Estimated GFR by using Modified MDRD formula.Chronic kidney disease is defined as either kidney damageor GFR <60 mL/min/1.73 m2 for >3 months. CREATININE (test code = CREAT) 1.10 mg/dL 0.55-1.02 H Note change in reference range due to change in reagent. BUN/CREATININE RATIO (test code = BUN/CREA) 31.1 10-20 H CALCIUM (test code = CA) 8.2 mg/dL 8.5-10.1 L BASIC METABOLIC [id number] 11:08:00* Test Item Value Reference Range Interpretation Comments SODIUM (test code = NA) 136 mmol/L 136-145 N POTASSIUM (test code = K) 4.8 mmol/L 3.5-5.1 N CHLORIDE (test code = CL) 100.0 mmol/L 98-107 N CARBON DIOXIDE (test code = CO2) mmol/L 21-32 ANION GAP (test code = GAP) 10-20 GLUCOSE (test code = GLU) mg/dL 74-106 BLOOD UREA NITROGEN (test code = BUN) mg/dL 7-18 GLOMERULAR FILTRATION RATE (test code = GFR) mL/min >=60 CREATININE (test code = CREAT) mg/dL 0.55-1.02 BUN/CREATININE RATIO (test code = BUN/CREA) 10-20 CALCIUM (test code = CA) mg/dL 8.5-10.1 [id number] 08:42:00* Test Item Value Reference Range Interpretation Comments GLUBED (test code = GLUBED) 195 mg/dL 74-106 H Performed by certified glue spreading machine operator at [facility] [id number] 20:18:00* Test Item Value Reference Range Interpretation Comments GLUBED (test code = GLUBED) 238 mg/dL 74-106 H Performed by certified glue spreading machine operator at [facility] [id number] 16:32:00* Test Item Value Reference Range Interpretation Comments GLUBED (test code = GLUBED) 149 mg/dL 74-106 H Performed by certified glue spreading machine operator at [facility] [id number] 12:15:00* Test Item Value Reference Range Interpretation Comments GLUBED (test code = GLUBED) 189 mg/dL 74-106 H Performed by certified glue spreading machine operator at [facility] BASIC METABOLIC [id number] 09:00:00* Test Item Value Reference Range Interpretation Comments SODIUM (test code = NA) 137 mmol/L 136-145 N POTASSIUM (test code = K) 4.4 mmol/L 3.5-5.1 N CHLORIDE (test code = CL) 100.0 mmol/L 98-107 N CARBON DIOXIDE (test code = CO2) 29.0 mmol/L 21-32 N ANION GAP (test code = GAP) 12.4 10-20 N GLUCOSE (test code = GLU) 308 mg/dL 74-106 H BLOOD UREA NITROGEN (test code = BUN) 26 mg/dL 7-18 H GLOMERULAR FILTRATION RATE (test code = GFR) 56 mL/min >=60 Estimated GFR by using Modified MDRD formula.Chronic kidney disease is defined as either kidney damageor GFR <60 mL/min/1.73 m2 for >3 months. CREATININE (test code = CREAT) 1.00 mg/dL 0.55-1.02 N Note change in reference range due to change in reagent. BUN/CREATININE RATIO (test code = BUN/CREA) 25.0 10-20 H CALCIUM (test code = CA) 8.4 mg/dL 8.5-10.1 L [id number] 09:00:00* Test Item Value Reference Range Interpretation Comments MAGNESIUM (test code = MAG) 1.9 mg/dL 1.8-2.4 N [id number] 07:52:00* Test Item Value Reference Range Interpretation Comments GLUBED (test code = GLUBED) 251 mg/dL 74-106 H Performed by certified glue spreading machine operator at [facility] [id number] 22:38:00* Test Item Value Reference Range Interpretation Comments GLUBED (test code = GLUBED) 157 mg/dL 74-106 H Performed by certified glue spreading machine operator at [facility] [id number] 21:25:00* Test Item Value Reference Range Interpretation Comments GLUBED (test code = GLUBED) 154 mg/dL 74-106 H Performed by certified glue spreading machine operator at [facility] [id number] 16:46:00* Test Item Value Reference Range Interpretation Comments GLUBED (test code = GLUBED) 156 mg/dL 74-106 H Performed by certified glue spreading machine operator at [facility] [id number] 10:44:00* Test Item Value Reference Range Interpretation Comments GLUBED (test code = GLUBED) 240 mg/dL 74-106 H Performed by certified glue spreading machine operator at [facility] [id number] 07:55:00* Test Item Value Reference Range Interpretation Comments GLUBED (test code = GLUBED) 178 mg/dL 74-106 H Performed by certified glue spreading machine operator at [facility] BASIC METABOLIC [id number] 06:00:00* Test Item Value Reference Range Interpretation Comments SODIUM (test code = NA) 141 mmol/L 136-145 N POTASSIUM (test code = K) 3.9 mmol/L 3.5-5.1 N CHLORIDE (test code = CL) 103.0 mmol/L 98-107 N CARBON DIOXIDE (test code = CO2) 30.0 mmol/L 21-32 N ANION GAP (test code = GAP) 11.9 10-20 N GLUCOSE (test code = GLU) 105 mg/dL 74-106 N BLOOD UREA NITROGEN (test code = BUN) 25 mg/dL 7-18 H GLOMERULAR FILTRATION RATE (test code = GFR) > 60 mL/min >=60 Estimated GFR by using Modified MDRD formula.Chronic kidney disease is defined as either kidney damageor GFR <60 mL/min/1.73 m2 for >3 months. CREATININE (test code = CREAT) 0.80 mg/dL 0.55-1.02 N Note change in reference range due to change in reagent. BUN/CREATININE RATIO (test code = BUN/CREA) 30.8 10-20 H CALCIUM (test code = CA) 8.4 mg/dL 8.5-10.1 L [id number] 06:00:00* Test Item Value Reference Range Interpretation Comments MAGNESIUM (test code = MAG) 2.0 mg/dL 1.8-2.4 N [id number] 21:31:00* Test Item Value Reference Range Interpretation Comments GLUBED (test code = GLUBED) 461 mg/dL 74-106 H Performed by certified glue spreading machine operator at [facility] [id number] 15:49:00* Test Item Value Reference Range Interpretation Comments GLUBED (test code = GLUBED) 400 mg/dL 74-106 H Performed by certified glue spreading machine operator at [facility] [id number] 12:49:00* Test Item Value Reference Range Interpretation Comments GLUBED (test code = GLUBED) 339 mg/dL 74-106 H Performed by certified glue spreading machine operator at [facility] [id number] 07:41:00* Test Item Value Reference Range Interpretation Comments GLUBED (test code = GLUBED) 328 mg/dL 74-106 H Performed by certified glue spreading machine operator at [facility] BASIC METABOLIC [id number] 05:42:00* Test Item Value Reference Range Interpretation Comments SODIUM (test code = NA) 138 mmol/L 136-145 N POTASSIUM (test code = K) 3.9 mmol/L 3.5-5.1 N CHLORIDE (test code = CL) 103.0 mmol/L 98-107 N CARBON DIOXIDE (test code = CO2) 29.0 mmol/L 21-32 N ANION GAP (test code = GAP) 9.9 10-20 L GLUCOSE (test code = GLU) 294 mg/dL 74-106 H BLOOD UREA NITROGEN (test code = BUN) 21 mg/dL 7-18 H GLOMERULAR FILTRATION RATE (test code = GFR) > 60 mL/min >=60 Estimated GFR by using Modified MDRD formula.Chronic kidney disease is defined as either kidney damageor GFR <60 mL/min/1.73 m2 for >3 months. CREATININE (test code = CREAT) 0.90 mg/dL 0.55-1.02 N Note change in reference range due to change in reagent. BUN/CREATININE RATIO (test code = BUN/CREA) 24.5 10-20 H CALCIUM (test code = CA) 8.5 mg/dL 8.5-10.1 N BASIC METABOLIC [id number] 05:33:00* Test Item Value Reference Range Interpretation Comments SODIUM (test code = NA) 138 mmol/L 136-145 N POTASSIUM (test code = K) 3.9 mmol/L 3.5-5.1 N CHLORIDE (test code = CL) 103.0 mmol/L 98-107 N CARBON DIOXIDE (test code = CO2) mmol/L 21-32 ANION GAP (test code = GAP) 10-20 GLUCOSE (test code = GLU) mg/dL 74-106 BLOOD UREA NITROGEN (test code = BUN) mg/dL 7-18 GLOMERULAR FILTRATION RATE (test code = GFR) mL/min >=60 CREATININE (test code = CREAT) mg/dL 0.55-1.02 BUN/CREATININE RATIO (test code = BUN/CREA) 10-20 CALCIUM (test code = CA) mg/dL 8.5-10.1 [id number] 03:29:00* Test Item Value Reference Range Interpretation Comments GLUBED (test code = GLUBED) 221 mg/dL 74-106 H Performed by certified glue spreading machine operator at [facility] [id number] 20:20:00* Test Item Value Reference Range Interpretation Comments GLUBED (test code = GLUBED) 406 mg/dL 74-106 H Performed by certified glue spreading machine operator at [facility] [id number] 18:02:00* Test Item Value Reference Range Interpretation Comments TROPONIN-I (test code = TROPI) <0.015 ng/mL 0-0.045 N COMMENTS TO PATIENT EDUCATOR: COLLECT 3 HOURS AFTER PREVIOUS [id number] 17:46:00* Test Item Value Reference Range Interpretation Comments MAGNESIUM (test code = MAG) 2.0 mg/dL 1.8-2.4 N [id number] 17:35:00* Test Item Value Reference Range Interpretation Comments GLUBED (test code = GLUBED) 363 mg/dL 74-106 H Performed by certified glue spreading machine operator at [facility] [id number] 13:25:00* Test Item Value Reference Range Interpretation Comments TROPONIN-I (test code = TROPI) <0.015 ng/mL 0-0.045 N COMMENTS TO PATIENT EDUCATOR: COLLECT 3 HOURS AFTER PREVIOUS SAMPLEURINALYSIS [id number] 10:05:00* Test Item Value Reference Range Interpretation Comments UA COLOR (test code = COLU) YELLOW UA APPEARANCE (test code = APPU) CLEAR UA BILIRUBIN DIPSTICK (test code = BILU) NEGATIVE UA SPECIFIC GRAVITY (test code = SGU) 1.001-1.035 UA PH DIPSTICK (test code = VIVEK) 5.0-8.0 UA UROBILINIOGEN DIPSTICK (test code = URO) mg/dL 0.0-0.2 UA NITRITE DIPSTICK (test code = GOYO) NEGATIVE UA LEUKOCYTE ESTERASE W REFLEX (test code = LEUUR) NEG ATIVE UA WBC (test code = WBCU) 0-5 per HPF 0-5 UA RBC (test code = RBCU) NONE SEEN #/HPF 0-5 UA EPITHELIAL CELLS (test code = EPIU) FEW per HPF FEW UA BACTERIA (test code = BACU) FEW #/HPF NONE A Urine Source? Clean CatchURINALYSIS [id number] 10:05:00* Test Item Value Reference Range Interpretation Comments UA COLOR (test code = COLU) YELLOW YELLOW UA APPEARANCE (test code = APPU) CLEAR CLEAR UA GLUCOSE DIPSTICK (test code = DGLUU) 300-500 (3+) mg/dL NEGATIVE UA BILIRUBIN DIPSTICK (test code = BILU) NEGATIVE NEGATIVE UA KETONE DIPSTICK (test code = KETU) NEGATIVE mg/dL NEGATIVE UA SPECIFIC GRAVITY (test code = SGU) >=1.030 1.001-1.035 UA BLOOD DIPSTICK (test code = MONICA) NEGATIVE NEGATIVE UA PH DIPSTICK (test code = VIVEK) 6.0 5.0-8.0 UA PROTEIN DIPSTICK (test code = PROU) NEGATIVE mg/dL Neg-15 UA UROBILINIOGEN DIPSTICK (test code = URO) 0.2 mg/dL 0.0-0.2 UA NITRITE DIPSTICK (test code = GOYO) NEGATIVE NEGATIVE UA LEUKOCYTE ESTERASE W REFLEX (test code = LEUUR) NEGATIVE NEG ATIVE UA WBC (test code = WBCU) 0-5 per HPF 0-5 UA RBC (test code = RBCU) NONE SEEN #/HPF 0-5 UA EPITHELIAL CELLS (test code = EPIU) FEW per HPF FEW UA BACTERIA (test code = BACU) FEW #/HPF NONE A Urine Source? Clean CatchCoronavirus 2018 nCoV [id number] 07:24:00* Test Item Value Reference Range Interpretation Comments Coronavirus 2019 nCoV Bedside (test code = [id number]) Negative Is patient requiring admission or transfer? YIndication for rapid COVID-19 testi ng: Mod Clinical SuspicionCBC W/AUTO DIFF 2019-12-23 07:22:00* Test Item Value Reference Range Interpretation Comments WHITE BLOOD CELL (test code = WBC) 5.0 K/mm3 4.5-12.5 N RED BLOOD CELL (test code = RBC) 4.08 mill/mm3 3.7-5.2 N HEMOGLOBIN (test code = HGB) 9.5 gram/dL 11.5-15.5 L HEMATOCRIT (test code = HCT) 32.5 % 36.0-46.0 L MEAN CELL VOLUME (test code = MCV) 79.7 fL 80-98 L MEAN CELL HGB (test code = MCH) 23.3 picogram 27.0-33.0 L MEAN CELL HGB CONCETRATION (test code = MCHC) 29.2 gram/dL 33.0-36. 0 L RED CELL DISTRIBUTION WIDTH (test code = RDW) 17.6 % 11.6-16. 2 H RED CELL DISTRIBUTION WIDTH SD (test code = RDW-SD) 51.0 fL 37 .0-51.0 N PLATELET COUNT (test code = PLT) 149 K/mm3 150-450 L MEAN PLATELET VOLUME (test code = MPV) 10.5 fL 6.7-11.0 N NEUTROPHIL % (test code = NT%) 66.2 % 39.0-69.0 N IMMATURE GRANULOCYTE % (test code = IG%) 0.8 % 0.0-5.0 N LYMPHOCYTE % (test code = LY%) 20.6 % 25.0-55.0 L MONOCYTE % (test code = MO%) 7.0 % 0.0-10.0 N EOSINOPHIL % (test code = EO%) 4.4 % 0.0-5.0 N BASOPHIL % (test code = BA%) 1.0 % 0.0-1.0 N NUCLEATED RBC % (test code = NRBC%) 0.0 % 0-0 N NEUTROPHIL # (test code = NT#) 3.31 K/mm3 1.8-7.7 N IMMATURE GRANULOCYTE # (test code = IG#) 0.04 x10 3/uL 0-0.03 H LYMPHOCYTE # (test code = LY#) 1.03 K/mm3 1.0-5.0 N MONOCYTE # (test code = MO#) 0.35 K/mm3 0-0.8 N EOSINOPHIL # (test code = EO#) 0.22 K/mm3 0.0-0.5 N BASOPHIL # (test code = BA#) 0.05 K/mm3 0.0-0.2 N NUCLEATED RBC # (test code = NRBC#) 0.00 K/mm3 0.0-0.1 N MANUAL DIFF REQUIRED (test code = MDIFF) NO, ONLY SCAN NEEDED DIFFERENTIAL [id number] 07:22:00* Test Item Value Reference Range Interpretation Comments STAIN ACCEPTABILITY (test code = STN ACCEPTABLE) STAIN ACCEPTABLE POLYCHROMASIA (test code = POLC) 1+ POIKILOCYTOSIS (test code = POIK) 1+ ANISOCYTOSIS (test code = ANISO) 1+ MICROCYTOSIS (test code = MICR) 1+ PLATELET ESTIMATE (test code = PLTEST) DECREASED PLATELET MORPHOLOGY (test code = PLTMORPH) NORMAL B-TYPE NATRIURETIC [id number] 07:19:00* Test Item Value Reference Range Interpretation Comments B-TYPE NATRIURETIC PEPTIDE (test code = BNP) 38.62 pgram/mL 0-100 N BASIC METABOLIC [id number] 06:41:00* Test Item Value Reference Range Interpretation Comments SODIUM (test code = NA) 141 mmol/L 136-145 N POTASSIUM (test code = K) 4.0 mmol/L 3.5-5.1 N CHLORIDE (test code = CL) 106.0 mmol/L 98-107 N CARBON DIOXIDE (test code = CO2) 29.0 mmol/L 21-32 N ANION GAP (test code = GAP) 10.0 10-20 N GLUCOSE (test code = GLU) 224 mg/dL 74-106 H BLOOD UREA NITROGEN (test code = BUN) 23 mg/dL 7-18 H GLOMERULAR FILTRATION RATE (test code = GFR) > 60 mL/min >=60 Estimated GFR by using Modified MDRD formula.Chronic kidney disease is defined as either kidney damageor GFR <60 mL/min/1.73 m2 for >3 months. CREATININE (test code = CREAT) 0.80 mg/dL 0.55-1.02 N Note change in reference range due to change in reagent. BUN/CREATININE RATIO (test code = BUN/CREA) 29.9 10-20 H CALCIUM (test code = CA) 8.7 mg/dL 8.5-10.1 N HEPATIC FUNCTION [id number] 06:41:00* Test Item Value Reference Range Interpretation Comments TOTAL PROTEIN (test code = PROT) 6.9 gram/dL 6.4-8.2 N ALBUMIN (test code = ALB) 3.0 g/dL 3.4-5.0 L GLOBULIN (test code = GLOB) 3.9 gram/dL 2.7-4.2 N ALBUMIN/GLOBULIN RATIO (test code = A/G) 0.8 0.75-1.50 N BILIRUBIN TOTAL (test code = BILT) 0.20 mg/dL 0.0-1.0 N BILIRUBIN DIRECT (test code = BILD) 0.08 mg/dL 0.0-0.20 N SGOT/AST (test code = AST) 9 IUnit/L 15-37 L SGPT/ALT (test code = ALT) 19 IUnit/L 12-78 N ALKALINE PHOSPHATASE TOTAL (test code = ALKP) 109 IUnit/L 45-117 N Note change in reference range due to change in reagent. [id number] 06:41:00* Test Item Value Reference Range Interpretation Comments LIPASE (test code = LIP) 91 U/L 73.0-393.0 N [id number] 06:41:00* Test Item Value Reference Range Interpretation Comments TROPONIN-I (test code = TROPI) <0.015 ng/mL 0-0.045 N PROTHROMBIN [id number] 06:31:00* Test Item Value Reference Range Interpretation Comments PROTHROMBIN TIME PATIENT (test code = PTP) 11.2 seconds 9.0-14.0 N INTERNATIONAL NORMAL RATIO (test code = INR) 0.9 0.8-1.2 N The therapeutic range for oral anticoagulant therapy formost indications is an international normalized ratio (INR)of between 2.0 and 3.0. The recommended therapeutic INRrange for various clinical situations is listed below: Clinical Situation INR range Pulmonary e mbolism treatment (2.0-3.0)Venous thrombosis treatmentVenous thrombosis prophylaxis (high risk surgery)Prevention of systemic embolism from: Acute myocardial infarction Valvular heart disease Atrial fibrillation Mechanical prosthetic heart valves (2.5-3.5) IS PATIENT ON ANTICOAGULANTS? NTHROMBOPLASTIN TIME [id number] 06:31:00* Test Item Value Reference Range Interpretation Comments THROMBOPLASTIN TIME PARTIAL (test code = PTT) 30.8 seconds 23.0-37. 0 N IS PATIENT ON ANTICOAGULANTS? NCBC W/AUTO [id number] 06:30:00* Test Item Value Reference Range Interpretation Comments WHITE BLOOD CELL (test code = WBC) 5.0 K/mm3 4.5-12.5 N RED BLOOD CELL (test code = RBC) 4.08 mill/mm3 3.7-5.2 N HEMOGLOBIN (test code = HGB) 9.5 gram/dL 11.5-15.5 L HEMATOCRIT (test code = HCT) 32.5 % 36.0-46.0 L MEAN CELL VOLUME (test code = MCV) 79.7 fL 80-98 L MEAN CELL HGB (test code = MCH) 23.3 picogram 27.0-33.0 L MEAN CELL HGB CONCETRATION (test code = MCHC) 29.2 gram/dL 33.0-36. 0 L RED CELL DISTRIBUTION WIDTH (test code = RDW) 17.6 % 11.6-16. 2 H RED CELL DISTRIBUTION WIDTH SD (test code = RDW-SD) 51.0 fL 37 .0-51.0 N PLATELET COUNT (test code = PLT) 149 K/mm3 150-450 L MEAN PLATELET VOLUME (test code = MPV) 10.5 fL 6.7-11.0 N NEUTROPHIL % (test code = NT%) 66.2 % 39.0-69.0 N IMMATURE GRANULOCYTE % (test code = IG%) 0.8 % 0.0-5.0 N LYMPHOCYTE % (test code = LY%) 20.6 % 25.0-55.0 L MONOCYTE % (test code = MO%) 7.0 % 0.0-10.0 N EOSINOPHIL % (test code = EO%) 4.4 % 0.0-5.0 N BASOPHIL % (test code = BA%) 1.0 % 0.0-1.0 N NUCLEATED RBC % (test code = NRBC%) 0.0 % 0-0 N NEUTROPHIL # (test code = NT#) 3.31 K/mm3 1.8-7.7 N IMMATURE GRANULOCYTE # (test code = IG#) 0.04 x10 3/uL 0-0.03 H LYMPHOCYTE # (test code = LY#) 1.03 K/mm3 1.0-5.0 N MONOCYTE # (test code = MO#) 0.35 K/mm3 0-0.8 N EOSINOPHIL # (test code = EO#) 0.22 K/mm3 0.0-0.5 N BASOPHIL # (test code = BA#) 0.05 K/mm3 0.0-0.2 N NUCLEATED RBC # (test code = NRBC#) 0.00 K/mm3 0.0-0.1 N MANUAL DIFF REQUIRED (test code = MDIFF) NO, ONLY SCAN NEEDED DIFFERENTIAL [id number] 06:30:00* Test Item Value Reference Range Interpretation Comments STAIN ACCEPTABILITY (test code = STN ACCEPTABLE) CABOT RINGS (test code = CAB) MORPHOLOGY COMMENT (test code = MOC) PLATELET ESTIMATE (test code = PLTEST) PLATELET MORPHOLOGY (test code = PLTMORPH) BASIC METABOLIC [id number] 06:30:00* Test Item Value Reference Range Interpretation Comments SODIUM (test code = NA) 141 mmol/L 136-145 N POTASSIUM (test code = K) 4.0 mmol/L 3.5-5.1 N CHLORIDE (test code = CL) 106.0 mmol/L 98-107 N CARBON DIOXIDE (test code = CO2) mmol/L 21-32 ANION GAP (test code = GAP) 10-20 GLUCOSE (test code = GLU) mg/dL 74-106 BLOOD UREA NITROGEN (test code = BUN) mg/dL 7-18 GLOMERULAR FILTRATION RATE (test code = GFR) mL/min >=60 CREATININE (test code = CREAT) mg/dL 0.55-1.02 BUN/CREATININE RATIO (test code = BUN/CREA) 10-20 CALCIUM (test code = CA) mg/dL 8.5-10.1 HEPATIC FUNCTION [id number] 06:30:00* Test Item Value Reference Range Interpretation Comments TOTAL PROTEIN (test code = PROT) gram/dL 6.4-8.2 ALBUMIN (test code = ALB) g/dL 3.4-5.0 GLOBULIN (test code = GLOB) gram/dL 2.7-4.2 ALBUMIN/GLOBULIN RATIO (test code = A/G) 0.75-1.50 BILIRUBIN TOTAL (test code = BILT) mg/dL 0.0-1.0 BILIRUBIN DIRECT (test code = BILD) mg/dL 0.0-0.20 SGOT/AST (test code = AST) IUnit/L 15-37 SGPT/ALT (test code = ALT) IUnit/L 12-78 ALKALINE PHOSPHATASE TOTAL (test code = ALKP) IUnit/L 45-117 [id number] 06:30:00* Test Item Value Reference Range Interpretation Comments LIPASE (test code = LIP) U/L 73.0-393.0 [id number] 06:30:00* Test Item Value Reference Range Interpretation Comments TROPONIN-I (test code = TROPI) ng/mL 0-0.045 CBC W/AUTO [id number] 06:30:00* Test Item Value Reference Range Interpretation Comments WHITE BLOOD CELL (test code = WBC) 5.0 K/mm3 4.5-12.5 N RED BLOOD CELL (test code = RBC) 4.08 mill/mm3 3.7-5.2 N HEMOGLOBIN (test code = HGB) 9.5 gram/dL 11.5-15.5 L HEMATOCRIT (test code = HCT) 32.5 % 36.0-46.0 L MEAN CELL VOLUME (test code = MCV) 79.7 fL 80-98 L MEAN CELL HGB (test code = MCH) 23.3 picogram 27.0-33.0 L MEAN CELL HGB CONCETRATION (test code = MCHC) 29.2 gram/dL 33.0-36. 0 L RED CELL DISTRIBUTION WIDTH (test code = RDW) 17.6 % 11.6-16. 2 H RED CELL DISTRIBUTION WIDTH SD (test code = RDW-SD) 51.0 fL 37 .0-51.0 N PLATELET COUNT (test code = PLT) 149 K/mm3 150-450 L MEAN PLATELET VOLUME (test code = MPV) 10.5 fL 6.7-11.0 N NEUTROPHIL % (test code = NT%) 66.2 % 39.0-69.0 N IMMATURE GRANULOCYTE % (test code = IG%) 0.8 % 0.0-5.0 N LYMPHOCYTE % (test code = LY%) 20.6 % 25.0-55.0 L MONOCYTE % (test code = MO%) 7.0 % 0.0-10.0 N EOSINOPHIL % (test code = EO%) 4.4 % 0.0-5.0 N BASOPHIL % (test code = BA%) 1.0 % 0.0-1.0 N NUCLEATED RBC % (test code = NRBC%) 0.0 % 0-0 N NEUTROPHIL # (test code = NT#) 3.31 K/mm3 1.8-7.7 N IMMATURE GRANULOCYTE # (test code = IG#) 0.04 x10 3/uL 0-0.03 H LYMPHOCYTE # (test code = LY#) 1.03 K/mm3 1.0-5.0 N MONOCYTE # (test code = MO#) 0.35 K/mm3 0-0.8 N EOSINOPHIL # (test code = EO#) 0.22 K/mm3 0.0-0.5 N BASOPHIL # (test code = BA#) 0.05 K/mm3 0.0-0.2 N NUCLEATED RBC # (test code = NRBC#) 0.00 K/mm3 0.0-0.1 N MANUAL DIFF REQUIRED (test code = MDIFF) NO, ONLY SCAN NEEDED DIFFERENTIAL [id number] 06:30:00* Test Item Value Reference Range Interpretation Comments STAIN ACCEPTABILITY (test code = STN ACCEPTABLE) CABOT RINGS (test code = CAB) MORPHOLOGY COMMENT (test code = MOC) PLATELET ESTIMATE (test code = PLTEST) PLATELET MORPHOLOGY (test code = PLTMORPH) CBC W/AUTO [id number] 06:30:00* Test Item Value Reference Range Interpretation Comments WHITE BLOOD CELL (test code = WBC) 5.0 K/mm3 4.5-12.5 N RED BLOOD CELL (test code = RBC) 4.08 mill/mm3 3.7-5.2 N HEMOGLOBIN (test code = HGB) 9.5 gram/dL 11.5-15.5 L HEMATOCRIT (test code = HCT) 32.5 % 36.0-46.0 L MEAN CELL VOLUME (test code = MCV) 79.7 fL 80-98 L MEAN CELL HGB (test code = MCH) 23.3 picogram 27.0-33.0 L MEAN CELL HGB CONCETRATION (test code = MCHC) 29.2 gram/dL 33.0-36. 0 L RED CELL DISTRIBUTION WIDTH (test code = RDW) 17.6 % 11.6-16. 2 H RED CELL DISTRIBUTION WIDTH SD (test code = RDW-SD) 51.0 fL 37 .0-51.0 N PLATELET COUNT (test code = PLT) 149 K/mm3 150-450 L MEAN PLATELET VOLUME (test code = MPV) 10.5 fL 6.7-11.0 N NEUTROPHIL % (test code = NT%) 66.2 % 39.0-69.0 N IMMATURE GRANULOCYTE % (test code = IG%) 0.8 % 0.0-5.0 N LYMPHOCYTE % (test code = LY%) 20.6 % 25.0-55.0 L MONOCYTE % (test code = MO%) 7.0 % 0.0-10.0 N EOSINOPHIL % (test code = EO%) 4.4 % 0.0-5.0 N BASOPHIL % (test code = BA%) 1.0 % 0.0-1.0 N NUCLEATED RBC % (test code = NRBC%) 0.0 % 0-0 N NEUTROPHIL # (test code = NT#) 3.31 K/mm3 1.8-7.7 N IMMATURE GRANULOCYTE # (test code = IG#) 0.04 x10 3/uL 0-0.03 H LYMPHOCYTE # (test code = LY#) 1.03 K/mm3 1.0-5.0 N MONOCYTE # (test code = MO#) 0.35 K/mm3 0-0.8 N EOSINOPHIL # (test code = EO#) 0.22 K/mm3 0.0-0.5 N BASOPHIL # (test code = BA#) 0.05 K/mm3 0.0-0.2 N NUCLEATED RBC # (test code = NRBC#) 0.00 K/mm3 0.0-0.1 N MANUAL DIFF REQUIRED (test code = MDIFF) NO, ONLY SCAN NEEDED DIFFERENTIAL [id number] 06:30:00* Test Item Value Reference Range Interpretation Comments STAIN ACCEPTABILITY (test code = STN ACCEPTABLE) MORPHOLOGY COMMENT (test code = MOC) PLATELET ESTIMATE (test code = PLTEST) PLATELET MORPHOLOGY (test code = PLTMORPH) CBC W/AUTO [id number] 06:30:00* Test Item Value Reference Range Interpretation Comments WHITE BLOOD CELL (test code = WBC) 5.0 K/mm3 4.5-12.5 N RED BLOOD CELL (test code = RBC) 4.08 mill/mm3 3.7-5.2 N HEMOGLOBIN (test code = HGB) 9.5 gram/dL 11.5-15.5 L HEMATOCRIT (test code = HCT) 32.5 % 36.0-46.0 L MEAN CELL VOLUME (test code = MCV) 79.7 fL 80-98 L MEAN CELL HGB (test code = MCH) 23.3 picogram 27.0-33.0 L MEAN CELL HGB CONCETRATION (test code = MCHC) 29.2 gram/dL 33.0-36. 0 L RED CELL DISTRIBUTION WIDTH (test code = RDW) 17.6 % 11.6-16. 2 H RED CELL DISTRIBUTION WIDTH SD (test code = RDW-SD) 51.0 fL 37 .0-51.0 N PLATELET COUNT (test code = PLT) 149 K/mm3 150-450 L MEAN PLATELET VOLUME (test code = MPV) 10.5 fL 6.7-11.0 N NEUTROPHIL % (test code = NT%) 66.2 % 39.0-69.0 N IMMATURE GRANULOCYTE % (test code = IG%) 0.8 % 0.0-5.0 N LYMPHOCYTE % (test code = LY%) 20.6 % 25.0-55.0 L MONOCYTE % (test code = MO%) 7.0 % 0.0-10.0 N EOSINOPHIL % (test code = EO%) 4.4 % 0.0-5.0 N BASOPHIL % (test code = BA%) 1.0 % 0.0-1.0 N NUCLEATED RBC % (test code = NRBC%) 0.0 % 0-0 N NEUTROPHIL # (test code = NT#) 3.31 K/mm3 1.8-7.7 N IMMATURE GRANULOCYTE # (test code = IG#) 0.04 x10 3/uL 0-0.03 H LYMPHOCYTE # (test code = LY#) 1.03 K/mm3 1.0-5.0 N MONOCYTE # (test code = MO#) 0.35 K/mm3 0-0.8 N EOSINOPHIL # (test code = EO#) 0.22 K/mm3 0.0-0.5 N BASOPHIL # (test code = BA#) 0.05 K/mm3 0.0-0.2 N NUCLEATED RBC # (test code = NRBC#) 0.00 K/mm3 0.0-0.1 N MANUAL DIFF REQUIRED (test code = MDIFF) NO, ONLY SCAN NEEDED DIFFERENTIAL [id number] 06:30:00* Test Item Value Reference Range Interpretation Comments STAIN ACCEPTABILITY (test code = STN ACCEPTABLE) CABOT RINGS (test code = CAB) MORPHOLOGY COMMENT (test code = MOC) PLATELET ESTIMATE (test code = PLTEST) PLATELET MORPHOLOGY (test code = PLTMORPH) - XR CHEST 1 [id number] 05:45:00 FAX: Benjamin Francis MD [phone] [place]: St: REG FAX: Leonora Norton [phone] Name: KALYANI TALAVERA [facility] : 1955 Age/S: 64/F [address] [facility] Unit #: [id number] Loc: [place] [address] Phys: Leonora Goins MD Acct: [id number] Dis Date: Status: REG ER PHONE #: [phone] Exam Date: 12/23/2019 0531 FAX #: [phone] Reason: SHORTNESS OF BREATH EXAMS: CPT CODE: [id number] XR CHEST 1 V 82003 AFTER HOURS SERVICE ON: 12/23/2019 5:44 AM AP Portable Chest Location Code M12 HISTORY: SHORTNESS OF BREATH FINDINGS: There is pulmonary vascular congestion, slightly more pronounced than 12/16/2019. No consolidation or pleural effusion is seen. There is no pneumothorax. Cardiac silhouette is enlarged. Study is limited by shallow inspiration. IMPRESSION: Slightly increasing pulmonary vascular congestion. Interstitial pneumonia should be excluded clinically. at 0545 Reported and signed by: Cr Hilton M.D. CC: Benjamin Masters; Leonora Goins MD Technologist: SUSAN HAMMONDS JR Trnscrd Date/Time/By: 12/23/2019 (1844) : By: [email or web address] Orig Print D/T: S: 12/23/2019 (3701) PAGE 1 Signed Report B-TYPE NATRIURETIC [id number] 05:44:00* Test Item Value Reference Range Interpretation Comments B-TYPE NATRIURETIC PEPTIDE (test code = BNP) 38.94 pgram/mL 0-100 N Coronavirus 2019 nCoV [id number] 04:56:00* Test Item Value Reference Range Interpretation Comments Coronavirus 2019 nCoV Bedside (test code = [id number]) Negative Is patient requiring admission or transfer? YIndication for rapid COVID-19 testi ng: Mod Clinical SuspicionBASIC METABOLIC [id number] 04:48:00* Test Item Value Reference Range Interpretation Comments SODIUM (test code = NA) 139 mmol/L 136-145 N POTASSIUM (test code = K) 4.1 mmol/L 3.5-5.1 N CHLORIDE (test code = CL) 106.0 mmol/L 98-107 N CARBON DIOXIDE (test code = CO2) 28.0 mmol/L 21-32 N ANION GAP (test code = GAP) 9.1 10-20 L GLUCOSE (test code = GLU) 144 mg/dL 74-106 H BLOOD UREA NITROGEN (test code = BUN) 22 mg/dL 7-18 H GLOMERULAR FILTRATION RATE (test code = GFR) > 60 mL/min >=60 Estimated GFR by using Modified MDRD formula.Chronic kidney disease is defined as either kidney damageor GFR <60 mL/min/1.73 m2 for >3 months. CREATININE (test code = CREAT) 0.80 mg/dL 0.55-1.02 N Note change in reference range due to change in reagent. BUN/CREATININE RATIO (test code = BUN/CREA) 26.4 10-20 H CALCIUM (test code = CA) 8.8 mg/dL 8.5-10.1 N [id number] 04:48:00* Test Item Value Reference Range Interpretation Comments TROPONIN-I (test code = TROPI) <0.015 ng/mL 0-0.045 N CBC W/O [id number] 04:39:00* Test Item Value Reference Range Interpretation Comments WHITE BLOOD CELL (test code = WBC) 5.5 K/mm3 4.5-12.5 N RED BLOOD CELL (test code = RBC) 4.11 mill/mm3 3.7-5.2 N HEMOGLOBIN (test code = HGB) 9.5 gram/dL 11.5-15.5 L HEMATOCRIT (test code = HCT) 32.2 % 36.0-46.0 L MEAN CELL VOLUME (test code = MCV) 78.3 fL 80-98 L MEAN CELL HGB (test code = MCH) 23.1 picogram 27.0-33.0 L MEAN CELL HGB CONCETRATION (test code = MCHC) 29.5 gram/dL 33.0-36. 0 L RED CELL DISTRIBUTION WIDTH (test code = RDW) 18.6 % 11.6-16. 2 H PLATELET COUNT (test code = PLT) 156 K/mm3 150-450 N MEAN PLATELET VOLUME (test code = MPV) 10.6 fL 6.7-11.0 N BASIC METABOLIC [id number] 04:37:00* Test Item Value Reference Range Interpretation Comments SODIUM (test code = NA) 139 mmol/L 136-145 N POTASSIUM (test code = K) 4.1 mmol/L 3.5-5.1 N CHLORIDE (test code = CL) 106.0 mmol/L 98-107 N CARBON DIOXIDE (test code = CO2) mmol/L 21-32 ANION GAP (test code = GAP) 10-20 GLUCOSE (test code = GLU) mg/dL 74-106 BLOOD UREA NITROGEN (test code = BUN) mg/dL 7-18 GLOMERULAR FILTRATION RATE (test code = GFR) mL/min >=60 CREATININE (test code = CREAT) mg/dL 0.55-1.02 BUN/CREATININE RATIO (test code = BUN/CREA) 10-20 CALCIUM (test code = CA) mg/dL 8.5-10.1 [id number] 04:37:00* Test Item Value Reference Range Interpretation Comments TROPONIN-I (test code = TROPI) ng/mL 0-0.045 - XR CHEST 1 [id number] 03:58:00 FAX: Benjamin Francis MD [phone] [place]: B St: [facility] FAX: Vince Jones DO Name: KALYANI TALAVERA [facility] : 1955 Age/S: 64/F [facility] Unit #: [id number] Loc: [place] [place] [address] Phys: Vince Jones DO Acct: [id number] Dis Date: Status: REG ER PHONE #: [phone] Exam Date: 12/16/2019 0345 FAX #: [phone] Reason: Shortness of Breath EXAMS: CPT CODE: [id number] XR CHEST 1 V 73727 EXAM: - XR CHEST 1 V HISTORY: Shortness of breath. COMPARISON: December 12, 2019. FINDINGS: Single AP view of the chest is provided. Cardiomegaly. Central pulmonary vascular prominence but decreased compared to previous exam. Elevated right hemidiaphragm. No focal consolidation, pleural effusion, pneumothorax, or acute osseous abnormality. IMPRESSION: Mild central pulmonary vascular prominence but congestion has decreased since previous exam. at 0358 Reported and signed by: Waldo Guevara MD CC: Benjamin Masters; Vince Jones DO Technologist: RT JOSÉ MIGUEL(Megan) Trn scrcalvin Date/Time/By: 12/16/2019 (0358) : By: [email or web address] Orig Print D/T: S : 12/16/2019 (0400) PAGE 1 Signed Report B-TYPE NATRIURETIC [id number] 03:51:00* Test Item Value Reference Range Interpretation Comments B-TYPE NATRIURETIC PEPTIDE (test code = BNP) 93.94 pgram/mL 0-100 N BASIC METABOLIC [id number] 03:42:00* Test Item Value Reference Range Interpretation Comments SODIUM (test code = NA) 139 mmol/L 136-145 N POTASSIUM (test code = K) 4.2 mmol/L 3.5-5.1 N CHLORIDE (test code = CL) 105.0 mmol/L 98-107 N CARBON DIOXIDE (test code = CO2) 29.0 mmol/L 21-32 N ANION GAP (test code = GAP) 9.2 10-20 L GLUCOSE (test code = GLU) 303 mg/dL 74-106 H BLOOD UREA NITROGEN (test code = BUN) 17 mg/dL 7-18 N GLOMERULAR FILTRATION RATE (test code = GFR) 56 mL/min >=60 Estimated GFR by using Modified MDRD formula.Chronic kidney disease is defined as either kidney damageor GFR <60 mL/min/1.73 m2 for >3 months. CREATININE (test code = CREAT) 1.00 mg/dL 0.55-1.02 N Note change in reference range due to change in reagent. BUN/CREATININE RATIO (test code = BUN/CREA) 17.7 10-20 N CALCIUM (test code = CA) 8.9 mg/dL 8.5-10.1 N [id number] 03:42:00* Test Item Value Reference Range Interpretation Comments TROPONIN-I (test code = TROPI) <0.015 ng/mL 0-0.045 N - XR CHEST 1 [id number] 03:13:00 FAX: Jani Roque [phone] [place]: St: REG FAX: Benjamin Francis MD [phone] Name: KALYANI TALAVERA [facility] : 1955 Age/S: 64/F [address] [facility] Unit #: [id number] Loc: [place] [address] Phys: Jani Roque MD Acct: [id number] Dis Date: Status: REG ER PHONE #: [phone] Exam Date: 12/12/2019 0233 FAX #: [phone] Reason: Shortness of Breath EXAMS: CPT CODE: [id number] XR CHEST 1 V 03794 - XR CHEST 1 V, 12/12/2019 2:26 AM Reason For Examination: Shortness of Breath Comparison: December 03, 2019 Location: R16 Findings Low lung volumes limit evaluation. LUNGS: Likely moderate edema, underlying consolidation difficult to exclude PLEURA: Small to moderate bilateral effusions CARDIOMEDIASTINAL SILHOUETTE Unremarkable Enlarged IMPRESSION: Findings compatible with fluid overload, underlying consolidation difficult to exclude at 0313 Reported and signed by: Tati Brunner M.D. CC: Jani Roque MD; Benjamin Masters Technologist: RT EDUARDO Trnscrd Date/Time/By: 12/12/2019 (312) : By: [email or web address] Orig Print D/T: S: 12/12/2019 (315) PAGE 1 Signed Report PROTHROMBIN [id number] 03:11:00* Test Item Value Reference Range Interpretation Comments PROTHROMBIN TIME PATIENT (test code = PTP) 12.7 seconds 9.0-14.0 N INTERNATIONAL NORMAL RATIO (test code = INR) 1.1 0.8-1.2 N The therapeutic range for oral anticoagulant therapy formost indications is an international normalized ratio (INR)of between 2.0 and 3.0. The recommended therapeutic INRrange for various clinical situations is listed below: Clinical Situation INR range Pulmonary e mbolism treatment (2.0-3.0)Venous thrombosis treatmentVenous thrombosis prophylaxis (high risk surgery)Prevention of systemic embolism from: Acute myocardial infarction Valvular heart disease Atrial fibrillation Mechanical prosthetic heart valves (2.5-3.5) IS PATIENT ON ANTICOAGULANTS? NTHROMBOPLASTIN TIME [id number] 03:11:00* Test Item Value Reference Range Interpretation Comments THROMBOPLASTIN TIME PARTIAL (test code = PTT) 33.6 seconds 23.0-37. 0 N IS PATIENT ON ANTICOAGULANTS? NBASIC METABOLIC [id number] 03:05:00* Test Item Value Reference Range Interpretation Comments SODIUM (test code = NA) 139 mmol/L 136-145 N POTASSIUM (test code = K) 4.2 mmol/L 3.5-5.1 N CHLORIDE (test code = CL) 105.0 mmol/L 98-107 N CARBON DIOXIDE (test code = CO2) mmol/L 21-32 ANION GAP (test code = GAP) 10-20 GLUCOSE (test code = GLU) mg/dL 74-106 BLOOD UREA NITROGEN (test code = BUN) mg/dL 7-18 GLOMERULAR FILTRATION RATE (test code = GFR) mL/min >=60 CREATININE (test code = CREAT) mg/dL 0.55-1.02 BUN/CREATININE RATIO (test code = BUN/CREA) 10-20 CALCIUM (test code = CA) 8.9 mg/dL 8.5-10.1 N [id number] 03:05:00* Test Item Value Reference Range Interpretation Comments TROPONIN-I (test code = TROPI) ng/mL 0-0.045 CBC W/O [id number] 02:54:00* Test Item Value Reference Range Interpretation Comments WHITE BLOOD CELL (test code = WBC) 5.5 K/mm3 4.5-12.5 N RED BLOOD CELL (test code = RBC) 3.96 mill/mm3 3.7-5.2 N HEMOGLOBIN (test code = HGB) 9.3 gram/dL 11.5-15.5 L HEMATOCRIT (test code = HCT) 31.7 % 36.0-46.0 L MEAN CELL VOLUME (test code = MCV) 80.1 fL 80-98 N MEAN CELL HGB (test code = MCH) 23.5 picogram 27.0-33.0 L MEAN CELL HGB CONCETRATION (test code = MCHC) 29.3 gram/dL 33.0-36. 0 L RED CELL DISTRIBUTION WIDTH (test code = RDW) 18.3 % 11.6-16. 2 H PLATELET COUNT (test code = PLT) 173 K/mm3 150-450 N MEAN PLATELET VOLUME (test code = MPV) 10.0 fL 6.7-11.0 N [id number] 15:43:00* Test Item Value Reference Range Interpretation Comments GLUBED (test code = GLUBED) 157 mg/dL 74-106 H Performed by certified glue spreading machine operator at [facility] BASIC METABOLIC [id number] 14:27:00* Test Item Value Reference Range Interpretation Comments SODIUM (test code = NA) 140 mmol/L 136-145 N POTASSIUM (test code = K) 4.8 mmol/L 3.5-5.1 N CHLORIDE (test code = CL) 105.0 mmol/L 98-107 N CARBON DIOXIDE (test code = CO2) 30.0 mmol/L 21-32 N ANION GAP (test code = GAP) 9.8 10-20 L GLUCOSE (test code = GLU) 163 mg/dL 74-106 H BLOOD UREA NITROGEN (test code = BUN) 21 mg/dL 7-18 H GLOMERULAR FILTRATION RATE (test code = GFR) 50 mL/min >=60 Estimated GFR by using Modified MDRD formula.Chronic kidney disease is defined as either kidney damageor GFR <60 mL/min/1.73 m2 for >3 months. CREATININE (test code = CREAT) 1.10 mg/dL 0.55-1.02 H Note change in reference range due to change in reagent. BUN/CREATININE RATIO (test code = BUN/CREA) 19.1 10-20 N CALCIUM (test code = CA) 8.5 mg/dL 8.5-10.1 N BASIC METABOLIC [id number] 14:23:00* Test Item Value Reference Range Interpretation Comments SODIUM (test code = NA) 140 mmol/L 136-145 N POTASSIUM (test code = K) 4.8 mmol/L 3.5-5.1 N CHLORIDE (test code = CL) 105.0 mmol/L 98-107 N CARBON DIOXIDE (test code = CO2) mmol/L 21-32 ANION GAP (test code = GAP) 10-20 GLUCOSE (test code = GLU) mg/dL 74-106 BLOOD UREA NITROGEN (test code = BUN) mg/dL 7-18 GLOMERULAR FILTRATION RATE (test code = GFR) mL/min >=60 CREATININE (test code = CREAT) mg/dL 0.55-1.02 BUN/CREATININE RATIO (test code = BUN/CREA) 10-20 CALCIUM (test code = CA) 8.5 mg/dL 8.5-10.1 N [id number] 11:31:00* Test Item Value Reference Range Interpretation Comments GLUBED (test code = GLUBED) 92 mg/dL 74-106 N Performed by certified glue spreading machine operator at [facility] [id number] 07:50:00* Test Item Value Reference Range Interpretation Comments GLUBED (test code = GLUBED) 172 mg/dL 74-106 H Performed by certified glue spreading machine operator at [facility] [id number] 00:32:00* Test Item Value Reference Range Interpretation Comments GLUBED (test code = GLUBED) 71 mg/dL 74-106 L Performed by certified glue spreading machine operator at [facility] [id number] 21:13:00* Test Item Value Reference Range Interpretation Comments GLUBED (test code = GLUBED) 110 mg/dL 74-106 H Performed by certified glue spreading machine operator at [facility] [id number] 16:45:00* Test Item Value Reference Range Interpretation Comments GLUBED (test code = GLUBED) 192 mg/dL 74-106 H [facility] glue spreading [facility] BASIC METABOLIC [id number] 15:12:00* Test Item Value Reference Range Interpretation Comments SODIUM (test code = NA) 143 mmol/L 136-145 N POTASSIUM (test code = K) 5.2 mmol/L 3.5-5.1 H CHLORIDE (test code = CL) 111.0 mmol/L 98-107 H CARBON DIOXIDE (test code = CO2) 28.0 mmol/L 21-32 N ANION GAP (test code = GAP) 9.2 10-20 L GLUCOSE (test code = GLU) 126 mg/dL 74-106 H BLOOD UREA NITROGEN (test code = BUN) 23 mg/dL 7-18 H GLOMERULAR FILTRATION RATE (test code = GFR) 56 mL/min >=60 Estimated GFR by using Modified MDRD formula.Chronic kidney disease is defined as either kidney damageor GFR <60 mL/min/1.73 m2 for >3 months. CREATININE (test code = CREAT) 1.00 mg/dL 0.55-1.02 N Note change in reference range due to change in reagent. BUN/CREATININE RATIO (test code = BUN/CREA) 23.0 10-20 H CALCIUM (test code = CA) 8.3 mg/dL 8.5-10.1 L [id number] 15:12:00* Test Item Value Reference Range Interpretation Comments MAGNESIUM (test code = MAG) 2.2 mg/dL 1.8-2.4 N BASIC METABOLIC [id number] 15:07:00* Test Item Value Reference Range Interpretation Comments SODIUM (test code = NA) 143 mmol/L 136-145 N POTASSIUM (test code = K) 5.2 mmol/L 3.5-5.1 H CHLORIDE (test code = CL) 111.0 mmol/L 98-107 H CARBON DIOXIDE (test code = CO2) mmol/L 21-32 ANION GAP (test code = GAP) 10-20 GLUCOSE (test code = GLU) mg/dL 74-106 BLOOD UREA NITROGEN (test code = BUN) mg/dL 7-18 GLOMERULAR FILTRATION RATE (test code = GFR) mL/min >=60 CREATININE (test code = CREAT) mg/dL 0.55-1.02 BUN/CREATININE RATIO (test code = BUN/CREA) 10-20 CALCIUM (test code = CA) mg/dL 8.5-10.1 [id number] 15:07:00* Test Item Value Reference Range Interpretation Comments MAGNESIUM (test code = MAG) mg/dL 1.8-2.4 [id number] 13:08:00* Test Item Value Reference Range Interpretation Comments GLUBED (test code = GLUBED) 107 mg/dL 74-106 H [facility] [id number] 08:18:00* Test Item Value Reference Range Interpretation Comments GLUBED (test code = GLUBED) 184 mg/dL 74-106 H [facility] certified glue spreading [facility] [id number] 06:54:00* Test Item Value Reference Range Interpretation Comments GLUBED (test code = GLUBED) 141 mg/dL 74-106 H Performed by certified glue spreading machine operator at [facility] [id number] 20:59:00* Test Item Value Reference Range Interpretation Comments GLUBED (test code = GLUBED) 100 mg/dL 74-106 N Performed by certified glue spreading machine operator at [facility] [id number] 17:20:00* Test Item Value Reference Range Interpretation Comments GLUBED (test code = GLUBED) 152 mg/dL 74-106 H [facility] certified glue spreading [facility] [id number] 16:08:00* Test Item Value Reference Range Interpretation Comments GLUBED (test code = GLUBED) 223 mg/dL 74-106 H Performed by certified glue spreading machine operator at [facility] [id number] 12:35:00* Test Item Value Reference Range Interpretation Comments GLUBED (test code = GLUBED) 262 mg/dL 74-106 H Performed by certified glue spreading machine operator at [facility] [id number] 08:13:00* Test Item Value Reference Range Interpretation Comments GLUBED (test code = GLUBED) 86 mg/dL 74-106 N Performed by certified glue spreading machine operator at [facility] [id number] 23:34:00* Test Item Value Reference Range Interpretation Comments GLUBED (test code = GLUBED) 294 mg/dL 74-106 H Performed by certified glue spreading machine operator at [facility] [id number] 20:47:00* Test Item Value Reference Range Interpretation Comments GLUBED (test code = GLUBED) 262 mg/dL 74-106 H Performed by certified glue spreading machine operator at [facility] [id number] 16:20:00* Test Item Value Reference Range Interpretation Comments GLUBED (test code = GLUBED) 62 mg/dL 74-106 L Performed by certified glue spreading machine operator at [facility] [id number] 12:23:00* Test Item Value Reference Range Interpretation Comments GLUBED (test code = GLUBED) 203 mg/dL 74-106 H Performed by certified glue spreading machine operator at [facility] [id number] 08:24:00* Test Item Value Reference Range Interpretation Comments GLUBED (test code = GLUBED) 316 mg/dL 74-106 H Performed by certified glue spreading machine operator at [facility] [id number] 20:06:00* Test Item Value Reference Range Interpretation Comments GLUBED (test code = GLUBED) 416 mg/dL 74-106 H Performed by certified glue spreading machine operator at [facility] [id number] 15:45:00* Test Item Value Reference Range Interpretation Comments GLUBED (test code = GLUBED) 298 mg/dL 74-106 H [facility] certified glue spreading [facility] [id number] 12:18:00* Test Item Value Reference Range Interpretation Comments TROPONIN-I (test code = TROPI) <0.015 ng/mL 0-0.045 N COMMENTS TO PATIENT EDUCATOR: COLLECT 3 HOURS AFTER PREVIOUS [id number] 07:57:00* Test Item Value Reference Range Interpretation Comments TROPONIN-I (test code = TROPI) <0.015 ng/mL 0-0.045 N COMMENTS TO PATIENT EDUCATOR: COLLECT 3 HOURS AFTER PREVIOUS SAMPLEB-TYPE NATRIURETIC [id number] 01:27:00* Test Item Value Reference Range Interpretation Comments B-TYPE NATRIURETIC PEPTIDE (test code = BNP) 88.96 pgram/mL 0-100 N BASIC METABOLIC [id number] 00:47:00* Test Item Value Reference Range Interpretation Comments SODIUM (test code = NA) 141 mmol/L 136-145 N POTASSIUM (test code = K) 3.9 mmol/L 3.5-5.1 N CHLORIDE (test code = CL) 108.0 mmol/L 98-107 H CARBON DIOXIDE (test code = CO2) 25.0 mmol/L 21-32 N ANION GAP (test code = GAP) 11.9 10-20 N GLUCOSE (test code = GLU) 327 mg/dL 74-106 H BLOOD UREA NITROGEN (test code = BUN) 22 mg/dL 7-18 H GLOMERULAR FILTRATION RATE (test code = GFR) > 60 mL/min >=60 Estimated GFR by using Modified MDRD formula.Chronic kidney disease is defined as either kidney damageor GFR <60 mL/min/1.73 m2 for >3 months. CREATININE (test code = CREAT) 0.80 mg/dL 0.55-1.02 N Note change in reference range due to change in reagent. BUN/CREATININE RATIO (test code = BUN/CREA) 27.5 10-20 H CALCIUM (test code = CA) 8.8 mg/dL 8.5-10.1 N [id number] 00:47:00* Test Item Value Reference Range Interpretation Comments TROPONIN-I (test code = TROPI) <0.015 ng/mL 0-0.045 N CBC W/O [id number] 00:42:00* Test Item Value Reference Range Interpretation Comments WHITE BLOOD CELL (test code = WBC) 6.1 K/mm3 4.5-12.5 N RED BLOOD CELL (test code = RBC) 3.73 mill/mm3 3.7-5.2 N HEMOGLOBIN (test code = HGB) 8.8 gram/dL 11.5-15.5 L HEMATOCRIT (test code = HCT) 29.5 % 36.0-46.0 L MEAN CELL VOLUME (test code = MCV) 79.1 fL 80-98 L MEAN CELL HGB (test code = MCH) 23.6 picogram 27.0-33.0 L MEAN CELL HGB CONCETRATION (test code = MCHC) 29.8 gram/dL 33.0-36. 0 L RED CELL DISTRIBUTION WIDTH (test code = RDW) 18.5 % 11.6-16. 2 H PLATELET COUNT (test code = PLT) 202 K/mm3 150-450 N MEAN PLATELET VOLUME (test code = MPV) 10.8 fL 6.7-11.0 N BASIC METABOLIC [id number] 00:36:00* Test Item Value Reference Range Interpretation Comments SODIUM (test code = NA) 141 mmol/L 136-145 N POTASSIUM (test code = K) 3.9 mmol/L 3.5-5.1 N CHLORIDE (test code = CL) 108.0 mmol/L 98-107 H CARBON DIOXIDE (test code = CO2) mmol/L 21-32 ANION GAP (test code = GAP) 10-20 GLUCOSE (test code = GLU) mg/dL 74-106 BLOOD UREA NITROGEN (test code = BUN) mg/dL 7-18 GLOMERULAR FILTRATION RATE (test code = GFR) mL/min >=60 CREATININE (test code = CREAT) mg/dL 0.55-1.02 BUN/CREATININE RATIO (test code = BUN/CREA) 10-20 CALCIUM (test code = CA) 8.8 mg/dL 8.5-10.1 N [id number] 00:36:00* Test Item Value Reference Range Interpretation Comments TROPONIN-I (test code = TROPI) ng/mL 0-0.045 - XR CHEST 1 [id number] 00:02:00 FAX: Russ Malcolm MD [phone] [place]: St: [facility] FAX: Benjamin Francis MD [phone] Name: KALYANI TALAVERA [facility] : 1955 Age/S: 64/F [address] Unit #: [id number] [facility] [place] [address] Phys: Russ Malcolm MD Acct: [id number] Dis Date: Status: REG ER PHONE #: [phone] Exam Date: 12/03/2019 2352 FAX #: [phone] Reason: Shortness of Breath EXAMS: CPT CODE: [id number] XR CHEST 1 V 96918 Exam: AP chest Location: H 12 History: Shortness of Breath Comparison: 11/20/2019 Findings: The film was exposed in a shallow degree of inspiration. The lungs are clear. No infiltrate or effusion is seen. Elevation of right hemidiaphragm is noted. The pulmonary vasculature is normal. The heart size is normal. The mediastinal silhouette is unremarkable. The bony thorax is intact. Impression: No acute disease. at 0002 Reported and signed by: Yonas Wesley M.D. CC: Russ Malcolm MD; Benjamin Masters Technologist: Janeen Dunbar Trnscrd Date/Time/By: 12/04/2019 (0002) : By: LeanneFC Orig Print D/T: S: 12/04/2019 (0005) PAGE 1 Signed Report [id number] 12:24:00* Test Item Value Reference Range Interpretation Comments GLUBED (test code = GLUBED) 151 mg/dL 74-106 H [facility] certified glue spreading [facility] [id number] 08:12:00* Test Item Value Reference Range Interpretation Comments GLUBED (test code = GLUBED) 169 mg/dL 74-106 H [facility] by certified glue spreading machine [facility] BASIC METABOLIC [id number] 06:37:00* Test Item Value Reference Range Interpretation Comments SODIUM (test code = NA) 137 mmol/L 136-145 N POTASSIUM (test code = K) 4.4 mmol/L 3.5-5.1 N CHLORIDE (test code = CL) 102.0 mmol/L 98-107 N CARBON DIOXIDE (test code = CO2) 30.0 mmol/L 21-32 N ANION GAP (test code = GAP) 9.4 10-20 L GLUCOSE (test code = GLU) 196 mg/dL 74-106 H BLOOD UREA NITROGEN (test code = BUN) 28 mg/dL 7-18 H GLOMERULAR FILTRATION RATE (test code = GFR) 56 mL/min >=60 Estimated GFR by using Modified MDRD formula.Chronic kidney disease is defined as either kidney damageor GFR <60 mL/min/1.73 m2 for >3 months. CREATININE (test code = CREAT) 1.00 mg/dL 0.55-1.02 N Note change in reference range due to change in reagent. BUN/CREATININE RATIO (test code = BUN/CREA) 28.0 10-20 H CALCIUM (test code = CA) 8.9 mg/dL 8.5-10.1 N [id number] 20:42:00* Test Item Value Reference Range Interpretation Comments GLUBED (test code = GLUBED) 223 mg/dL 74-106 H Performed by certified glue spreading machine operator at [facility] [id number] 16:09:00* Test Item Value Reference Range Interpretation Comments GLUBED (test code = GLUBED) 205 mg/dL 74-106 H Performed by certified glue spreading machine operator at [facility] [id number] 11:35:00* Test Item Value Reference Range Interpretation Comments GLUBED (test code = GLUBED) 338 mg/dL 74-106 H Performed by certified glue spreading machine operator at [facility] [id number] 08:04:00* Test Item Value Reference Range Interpretation Comments GLUBED (test code = GLUBED) 240 mg/dL 74-106 H Performed by certified glue spreading machine operator at [facility] BASIC METABOLIC [id number] 07:18:00* Test Item Value Reference Range Interpretation Comments SODIUM (test code = NA) 137 mmol/L 136-145 N POTASSIUM (test code = K) 4.2 mmol/L 3.5-5.1 N CHLORIDE (test code = CL) 100.0 mmol/L 98-107 N CARBON DIOXIDE (test code = CO2) 31.0 mmol/L 21-32 N ANION GAP (test code = GAP) 10.2 10-20 N GLUCOSE (test code = GLU) 238 mg/dL 74-106 H BLOOD UREA NITROGEN (test code = BUN) 33 mg/dL 7-18 H GLOMERULAR FILTRATION RATE (test code = GFR) 56 mL/min >=60 Estimated GFR by using Modified MDRD formula.Chronic kidney disease is defined as either kidney damageor GFR <60 mL/min/1.73 m2 for >3 months. CREATININE (test code = CREAT) 1.00 mg/dL 0.55-1.02 N Note change in reference range due to change in reagent. BUN/CREATININE RATIO (test code = BUN/CREA) 33.0 10-20 H CALCIUM (test code = CA) 8.6 mg/dL 8.5-10.1 N BASIC METABOLIC [id number] 07:14:00* Test Item Value Reference Range Interpretation Comments SODIUM (test code = NA) 137 mmol/L 136-145 N POTASSIUM (test code = K) 4.2 mmol/L 3.5-5.1 N CHLORIDE (test code = CL) 100.0 mmol/L 98-107 N CARBON DIOXIDE (test code = CO2) mmol/L 21-32 ANION GAP (test code = GAP) 10-20 GLUCOSE (test code = GLU) mg/dL 74-106 BLOOD UREA NITROGEN (test code = BUN) mg/dL 7-18 GLOMERULAR FILTRATION RATE (test code = GFR) mL/min >=60 CREATININE (test code = CREAT) mg/dL 0.55-1.02 BUN/CREATININE RATIO (test code = BUN/CREA) 10-20 CALCIUM (test code = CA) mg/dL 8.5-10.1 [id number] 20:28:00* Test Item Value Reference Range Interpretation Comments GLUBED (test code = GLUBED) 343 mg/dL 74-106 H Performed by certified glue spreading machine operator at [facility] [id number] 16:32:00* Test Item Value Reference Range Interpretation Comments GLUBED (test code = GLUBED) 279 mg/dL 74-106 H Performed by certified glue spreading machine operator at [facility] [id number] 11:49:00* Test Item Value Reference Range Interpretation Comments GLUBED (test code = GLUBED) 290 mg/dL 74-106 H Performed by certified glue spreading machine operator at [facility] URINALYSIS [id number] 10:01:00* Test Item Value Reference Range Interpretation Comments UA COLOR (test code = COLU) Light-Yellow YELLOW UA APPEARANCE (test code = APPU) CLEAR CLEAR UA GLUCOSE DIPSTICK (test code = DGLUU) 300 (2+) mg/dL NEGATIVE A UA BILIRUBIN DIPSTICK (test code = BILU) NEGATIVE mg/dL NEGATIVE UA KETONE DIPSTICK (test code = KETU) NEGATIVE mg/dL NEGATIVE UA SPECIFIC GRAVITY (test code = SGU) 1.017 1.001-1.035 UA BLOOD DIPSTICK (test code = MONICA) Negative mg/dL NEGATIVE UA PH DIPSTICK (test code = VIVEK) 5.5 5.0-8.0 UA PROTEIN DIPSTICK (test code = PROU) NEGATIVE mg/dL NEGATIVE UA UROBILINIOGEN DIPSTICK (test code = URO) Normal mg/dL NEGATIVE UA NITRITE DIPSTICK (test code = GOYO) NEGATIVE NEGATIVE UA LEUKOCYTE ESTERASE W REFLEX (test code = LEUUR) NEGATIVE Kendra/uL NEGATIVE UA WBC (test code = WBCU) 0-5 per HPF 0-5 UA RBC (test code = RBCU) 0-2 #/HPF 0-5 UA EPITHELIAL CELLS (test code = EPIU) FEW per HPF FEW UA BACTERIA (test code = BACU) FEW #/HPF NONE A Urine Source? MidstreamURINALYSIS [id number] 10:00:00* Test Item Value Reference Range Interpretation Comments UA COLOR (test code = COLU) Light-Yellow YELLOW UA APPEARANCE (test code = APPU) CLEAR CLEAR UA GLUCOSE DIPSTICK (test code = DGLUU) 300 (2+) mg/dL NEGATIVE A UA BILIRUBIN DIPSTICK (test code = BILU) NEGATIVE mg/dL NEGATIVE UA KETONE DIPSTICK (test code = KETU) NEGATIVE mg/dL NEGATIVE UA SPECIFIC GRAVITY (test code = SGU) 1.017 1.001-1.035 UA BLOOD DIPSTICK (test code = MONICA) Negative mg/dL NEGATIVE UA PH DIPSTICK (test code = VIVEK) 5.5 5.0-8.0 UA PROTEIN DIPSTICK (test code = PROU) NEGATIVE mg/dL NEGATIVE UA UROBILINIOGEN DIPSTICK (test code = URO) Normal mg/dL NEGATIVE UA NITRITE DIPSTICK (test code = GOYO) NEGATIVE NEGATIVE UA LEUKOCYTE ESTERASE W REFLEX (test code = LEUUR) NEGATIVE Kendra/uL NEGATIVE UA WBC (test code = WBCU) per HPF 0-5 UA RBC (test code = RBCU) per HPF 0-5 UA EPITHELIAL CELLS (test code = EPIU) per HPF Few UA BACTERIA (test code = BACU) per HPF NONE Urine Source? [id number] 08:37:00* Test Item Value Reference Range Interpretation Comments GLUBED (test code = GLUBED) 260 mg/dL 74-106 H Performed by certified glue spreading machine operator at [facility] [id number] 05:57:00* Test Item Value Reference Range Interpretation Comments GLUBED (test code = GLUBED) 253 mg/dL 74-106 H Performed by certified glue spreading machine operator at [facility] BASIC METABOLIC [id number] 05:52:00* Test Item Value Reference Range Interpretation Comments SODIUM (test code = NA) 137 mmol/L 136-145 N POTASSIUM (test code = K) 5.0 mmol/L 3.5-5.1 N CHLORIDE (test code = CL) 102.0 mmol/L 98-107 N CARBON DIOXIDE (test code = CO2) 24.0 mmol/L 21-32 N ANION GAP (test code = GAP) 16.0 10-20 N GLUCOSE (test code = GLU) 227 mg/dL 74-106 H BLOOD UREA NITROGEN (test code = BUN) 29 mg/dL 7-18 H GLOMERULAR FILTRATION RATE (test code = GFR) 56 mL/min >=60 Estimated GFR by using Modified MDRD formula.Chronic kidney disease is defined as either kidney damageor GFR <60 mL/min/1.73 m2 for >3 months. CREATININE (test code = CREAT) 1.00 mg/dL 0.55-1.02 N Note change in reference range due to change in reagent. BUN/CREATININE RATIO (test code = BUN/CREA) 29.0 10-20 H CALCIUM (test code = CA) 8.8 mg/dL 8.5-10.1 N BASIC METABOLIC [id number] 05:49:00* Test Item Value Reference Range Interpretation Comments SODIUM (test code = NA) 137 mmol/L 136-145 N POTASSIUM (test code = K) 5.0 mmol/L 3.5-5.1 N CHLORIDE (test code = CL) 102.0 mmol/L 98-107 N CARBON DIOXIDE (test code = CO2) mmol/L 21-32 ANION GAP (test code = GAP) 10-20 GLUCOSE (test code = GLU) mg/dL 74-106 BLOOD UREA NITROGEN (test code = BUN) mg/dL 7-18 GLOMERULAR FILTRATION RATE (test code = GFR) mL/min >=60 CREATININE (test code = CREAT) mg/dL 0.55-1.02 BUN/CREATININE RATIO (test code = BUN/CREA) 10-20 CALCIUM (test code = CA) mg/dL 8.5-10.1 [id number] 23:00:00* Test Item Value Reference Range Interpretation Comments GLUBED (test code = GLUBED) 108 mg/dL 74-106 H Performed by certified glue spreading machine operator at [facility] [id number] 22:22:00* Test Item Value Reference Range Interpretation Comments GLUBED (test code = GLUBED) 111 mg/dL 74-106 H Performed by certified glue spreading machine operator at [facility] URINALYSIS [id number] 20:09:00* Test Item Value Reference Range Interpretation Comments UA COLOR (test code = COLU) COLORLESS YELLOW A UA APPEARANCE (test code = APPU) CLEAR CLEAR UA GLUCOSE DIPSTICK (test code = DGLUU) NEGATIVE mg/dL NEGATIVE UA BILIRUBIN DIPSTICK (test code = BILU) NEGATIVE mg/dL NEGATIVE UA KETONE DIPSTICK (test code = KETU) NEGATIVE mg/dL NEGATIVE UA SPECIFIC GRAVITY (test code = SGU) 1.014 1.001-1.035 UA BLOOD DIPSTICK (test code = MONICA) Negative mg/dL NEGATIVE UA PH DIPSTICK (test code = VIVEK) 5.0 5.0-8.0 UA PROTEIN DIPSTICK (test code = PROU) NEGATIVE mg/dL NEGATIVE UA UROBILINIOGEN DIPSTICK (test code = URO) Normal mg/dL NEGATIVE UA NITRITE DIPSTICK (test code = GOYO) NEGATIVE NEGATIVE UA LEUKOCYTE ESTERASE W REFLEX (test code = LEUUR) NEGATIVE Kendra/uL NEGATIVE UA WBC (test code = WBCU) 0-5 per HPF 0-5 UA RBC (test code = RBCU) 0-2 #/HPF 0-5 UA EPITHELIAL CELLS (test code = EPIU) Few (2-5/hpf) per HPF FEW UA BACTERIA (test code = BACU) FEW #/HPF NONE Urine Source? [id number] 16:18:00* Test Item Value Reference Range Interpretation Comments GLUBED (test code = GLUBED) 196 mg/dL 74-106 H Performed by certified glue spreading machine operator at [facility] [id number] 12:03:00* Test Item Value Reference Range Interpretation Comments GLUBED (test code = GLUBED) 190 mg/dL 74-106 H Performed by certified glue spreading machine operator at [facility] [id number] 08:22:00* Test Item Value Reference Range Interpretation Comments GLUBED (test code = GLUBED) 264 mg/dL 74-106 H [facility] certified glue spreading machine [facility] BASIC METABOLIC [id number] 07:56:00* Test Item Value Reference Range Interpretation Comments SODIUM (test code = NA) 138 mmol/L 136-145 N POTASSIUM (test code = K) 4.9 mmol/L 3.5-5.1 N CHLORIDE (test code = CL) 103.0 mmol/L 98-107 N CARBON DIOXIDE (test code = CO2) 26.0 mmol/L 21-32 N ANION GAP (test code = GAP) 13.9 10-20 N GLUCOSE (test code = GLU) 282 mg/dL 74-106 H BLOOD UREA NITROGEN (test code = BUN) 30 mg/dL 7-18 H GLOMERULAR FILTRATION RATE (test code = GFR) 48 mL/min >=60 Estimated GFR by using Modified MDRD formula.Chronic kidney disease is defined as either kidney damageor GFR <60 mL/min/1.73 m2 for >3 months. CREATININE (test code = CREAT) 1.15 mg/dL 0.55-1.02 H Note change in reference range due to change in reagent. BUN/CREATININE RATIO (test code = BUN/CREA) 26.1 10-20 H CALCIUM (test code = CA) 8.6 mg/dL 8.5-10.1 N BASIC METABOLIC [id number] 05:39:00* Test Item Value Reference Range Interpretation Comments SODIUM (test code = NA) 138 mmol/L 136-145 N POTASSIUM (test code = K) 4.9 mmol/L 3.5-5.1 N CHLORIDE (test code = CL) 103.0 mmol/L 98-107 N CARBON DIOXIDE (test code = CO2) mmol/L 21-32 ANION GAP (test code = GAP) 10-20 GLUCOSE (test code = GLU) mg/dL 74-106 BLOOD UREA NITROGEN (test code = BUN) mg/dL 7-18 GLOMERULAR FILTRATION RATE (test code = GFR) mL/min >=60 CREATININE (test code = CREAT) mg/dL 0.55-1.02 BUN/CREATININE RATIO (test code = BUN/CREA) 10-20 CALCIUM (test code = CA) mg/dL 8.5-10.1 CBC W/AUTO [id number] 05:19:00* Test Item Value Reference Range Interpretation Comments WHITE BLOOD CELL (test code = WBC) 5.4 K/mm3 4.5-12.5 N RED BLOOD CELL (test code = RBC) 4.09 mill/mm3 3.7-5.2 N HEMOGLOBIN (test code = HGB) 9.2 gram/dL 11.5-15.5 L HEMATOCRIT (test code = HCT) 31.8 % 36.0-46.0 L MEAN CELL VOLUME (test code = MCV) 77.8 fL 80-98 L MEAN CELL HGB (test code = MCH) 22.5 picogram 27.0-33.0 L MEAN CELL HGB CONCETRATION (test code = MCHC) 28.9 gram/dL 33.0-36. 0 L RED CELL DISTRIBUTION WIDTH (test code = RDW) 17.7 % 11.6-16. 2 H RED CELL DISTRIBUTION WIDTH SD (test code = RDW-SD) 49.1 fL 37 .0-51.0 N PLATELET COUNT (test code = PLT) 143 K/mm3 150-450 L MEAN PLATELET VOLUME (test code = MPV) 10.5 fL 6.7-11.0 N NEUTROPHIL % (test code = NT%) 72.6 % 39.0-69.0 H IMMATURE GRANULOCYTE % (test code = IG%) 1.1 % 0.0-5.0 N LYMPHOCYTE % (test code = LY%) 16.9 % 25.0-55.0 L MONOCYTE % (test code = MO%) 5.0 % 0.0-10.0 N EOSINOPHIL % (test code = EO%) 3.7 % 0.0-5.0 N BASOPHIL % (test code = BA%) 0.7 % 0.0-1.0 N NUCLEATED RBC % (test code = NRBC%) 0.0 % 0-0 N NEUTROPHIL # (test code = NT#) 3.89 K/mm3 1.8-7.7 N IMMATURE GRANULOCYTE # (test code = IG#) 0.06 x10 3/uL 0-0.03 H LYMPHOCYTE # (test code = LY#) 0.91 K/mm3 1.0-5.0 L MONOCYTE # (test code = MO#) 0.27 K/mm3 0-0.8 N EOSINOPHIL # (test code = EO#) 0.20 K/mm3 0.0-0.5 N BASOPHIL # (test code = BA#) 0.04 K/mm3 0.0-0.2 N NUCLEATED RBC # (test code = NRBC#) 0.00 K/mm3 0.0-0.1 N MANUAL DIFF REQUIRED (test code = MDIFF) NO, ONLY SCAN NEEDED DIFFERENTIAL [id number] 05:19:00* Test Item Value Reference Range Interpretation Comments STAIN ACCEPTABILITY (test code = STN ACCEPTABLE) STAIN ACCEPTABLE ANISOCYTOSIS (test code = ANISO) 2+ MICROCYTOSIS (test code = MICR) 2+ MORPHOLOGY COMMENT (test code = MOC) TEST NOT PERFORMED PLATELET ESTIMATE (test code = PLTEST) DECREASED PLATELET MORPHOLOGY (test code = PLTMORPH) NORMAL CBC W/AUTO [id number] 05:06:00* Test Item Value Reference Range Interpretation Comments WHITE BLOOD CELL (test code = WBC) 5.4 K/mm3 4.5-12.5 N RED BLOOD CELL (test code = RBC) 4.09 mill/mm3 3.7-5.2 N HEMOGLOBIN (test code = HGB) 9.2 gram/dL 11.5-15.5 L HEMATOCRIT (test code = HCT) 31.8 % 36.0-46.0 L MEAN CELL VOLUME (test code = MCV) 77.8 fL 80-98 L MEAN CELL HGB (test code = MCH) 22.5 picogram 27.0-33.0 L MEAN CELL HGB CONCETRATION (test code = MCHC) 28.9 gram/dL 33.0-36. 0 L RED CELL DISTRIBUTION WIDTH (test code = RDW) 17.7 % 11.6-16. 2 H RED CELL DISTRIBUTION WIDTH SD (test code = RDW-SD) 49.1 fL 37 .0-51.0 N PLATELET COUNT (test code = PLT) 143 K/mm3 150-450 L MEAN PLATELET VOLUME (test code = MPV) 10.5 fL 6.7-11.0 N NEUTROPHIL % (test code = NT%) 72.6 % 39.0-69.0 H IMMATURE GRANULOCYTE % (test code = IG%) 1.1 % 0.0-5.0 N LYMPHOCYTE % (test code = LY%) 16.9 % 25.0-55.0 L MONOCYTE % (test code = MO%) 5.0 % 0.0-10.0 N EOSINOPHIL % (test code = EO%) 3.7 % 0.0-5.0 N BASOPHIL % (test code = BA%) 0.7 % 0.0-1.0 N NUCLEATED RBC % (test code = NRBC%) 0.0 % 0-0 N NEUTROPHIL # (test code = NT#) 3.89 K/mm3 1.8-7.7 N IMMATURE GRANULOCYTE # (test code = IG#) 0.06 x10 3/uL 0-0.03 H LYMPHOCYTE # (test code = LY#) 0.91 K/mm3 1.0-5.0 L MONOCYTE # (test code = MO#) 0.27 K/mm3 0-0.8 N EOSINOPHIL # (test code = EO#) 0.20 K/mm3 0.0-0.5 N BASOPHIL # (test code = BA#) 0.04 K/mm3 0.0-0.2 N NUCLEATED RBC # (test code = NRBC#) 0.00 K/mm3 0.0-0.1 N MANUAL DIFF REQUIRED (test code = MDIFF) NO, ONLY SCAN NEEDED DIFFERENTIAL [id number] 05:06:00* Test Item Value Reference Range Interpretation Comments STAIN ACCEPTABILITY (test code = STN ACCEPTABLE) MORPHOLOGY COMMENT (test code = MOC) PLATELET ESTIMATE (test code = PLTEST) PLATELET MORPHOLOGY (test code = PLTMORPH) CBC W/AUTO [id number] 05:00:00* Test Item Value Reference Range Interpretation Comments WHITE BLOOD CELL (test code = WBC) 5.4 K/mm3 4.5-12.5 N RED BLOOD CELL (test code = RBC) 4.09 mill/mm3 3.7-5.2 N HEMOGLOBIN (test code = HGB) 9.2 gram/dL 11.5-15.5 L HEMATOCRIT (test code = HCT) 31.8 % 36.0-46.0 L MEAN CELL VOLUME (test code = MCV) 77.8 fL 80-98 L MEAN CELL HGB (test code = MCH) 22.5 picogram 27.0-33.0 L MEAN CELL HGB CONCETRATION (test code = MCHC) 28.9 gram/dL 33.0-36. 0 L RED CELL DISTRIBUTION WIDTH (test code = RDW) 17.7 % 11.6-16. 2 H RED CELL DISTRIBUTION WIDTH SD (test code = RDW-SD) 49.1 fL 37 .0-51.0 N PLATELET COUNT (test code = PLT) 143 K/mm3 150-450 L MEAN PLATELET VOLUME (test code = MPV) 10.5 fL 6.7-11.0 N NEUTROPHIL % (test code = NT%) 72.6 % 39.0-69.0 H IMMATURE GRANULOCYTE % (test code = IG%) 1.1 % 0.0-5.0 N LYMPHOCYTE % (test code = LY%) 16.9 % 25.0-55.0 L MONOCYTE % (test code = MO%) 5.0 % 0.0-10.0 N EOSINOPHIL % (test code = EO%) 3.7 % 0.0-5.0 N BASOPHIL % (test code = BA%) 0.7 % 0.0-1.0 N NUCLEATED RBC % (test code = NRBC%) 0.0 % 0-0 N NEUTROPHIL # (test code = NT#) 3.89 K/mm3 1.8-7.7 N IMMATURE GRANULOCYTE # (test code = IG#) 0.06 x10 3/uL 0-0.03 H LYMPHOCYTE # (test code = LY#) 0.91 K/mm3 1.0-5.0 L MONOCYTE # (test code = MO#) 0.27 K/mm3 0-0.8 N EOSINOPHIL # (test code = EO#) 0.20 K/mm3 0.0-0.5 N BASOPHIL # (test code = BA#) 0.04 K/mm3 0.0-0.2 N NUCLEATED RBC # (test code = NRBC#) 0.00 K/mm3 0.0-0.1 N MANUAL DIFF REQUIRED (test code = MDIFF) NO, ONLY SCAN NEEDED DIFFERENTIAL [id number] 05:00:00* Test Item Value Reference Range Interpretation Comments STAIN ACCEPTABILITY (test code = STN ACCEPTABLE) CABOT RINGS (test code = CAB) MORPHOLOGY COMMENT (test code = MOC) PLATELET ESTIMATE (test code = PLTEST) PLATELET MORPHOLOGY (test code = PLTMORPH) CBC W/AUTO [id number] 05:00:00* Test Item Value Reference Range Interpretation Comments WHITE BLOOD CELL (test code = WBC) 5.4 K/mm3 4.5-12.5 N RED BLOOD CELL (test code = RBC) 4.09 mill/mm3 3.7-5.2 N HEMOGLOBIN (test code = HGB) 9.2 gram/dL 11.5-15.5 L HEMATOCRIT (test code = HCT) 31.8 % 36.0-46.0 L MEAN CELL VOLUME (test code = MCV) 77.8 fL 80-98 L MEAN CELL HGB (test code = MCH) 22.5 picogram 27.0-33.0 L MEAN CELL HGB CONCETRATION (test code = MCHC) 28.9 gram/dL 33.0-36. 0 L RED CELL DISTRIBUTION WIDTH (test code = RDW) 17.7 % 11.6-16. 2 H RED CELL DISTRIBUTION WIDTH SD (test code = RDW-SD) 49.1 fL 37 .0-51.0 N PLATELET COUNT (test code = PLT) 143 K/mm3 150-450 L MEAN PLATELET VOLUME (test code = MPV) 10.5 fL 6.7-11.0 N NEUTROPHIL % (test code = NT%) 72.6 % 39.0-69.0 H IMMATURE GRANULOCYTE % (test code = IG%) 1.1 % 0.0-5.0 N LYMPHOCYTE % (test code = LY%) 16.9 % 25.0-55.0 L MONOCYTE % (test code = MO%) 5.0 % 0.0-10.0 N EOSINOPHIL % (test code = EO%) 3.7 % 0.0-5.0 N BASOPHIL % (test code = BA%) 0.7 % 0.0-1.0 N NUCLEATED RBC % (test code = NRBC%) 0.0 % 0-0 N NEUTROPHIL # (test code = NT#) 3.89 K/mm3 1.8-7.7 N IMMATURE GRANULOCYTE # (test code = IG#) 0.06 x10 3/uL 0-0.03 H LYMPHOCYTE # (test code = LY#) 0.91 K/mm3 1.0-5.0 L MONOCYTE # (test code = MO#) 0.27 K/mm3 0-0.8 N EOSINOPHIL # (test code = EO#) 0.20 K/mm3 0.0-0.5 N BASOPHIL # (test code = BA#) 0.04 K/mm3 0.0-0.2 N NUCLEATED RBC # (test code = NRBC#) 0.00 K/mm3 0.0-0.1 N MANUAL DIFF REQUIRED (test code = MDIFF) NO, ONLY SCAN NEEDED DIFFERENTIAL [id number] 05:00:00* Test Item Value Reference Range Interpretation Comments STAIN ACCEPTABILITY (test code = STN ACCEPTABLE) MORPHOLOGY COMMENT (test code = MOC) PLATELET ESTIMATE (test code = PLTEST) PLATELET MORPHOLOGY (test code = PLTMORPH) CBC W/AUTO [id number] 05:00:00* Test Item Value Reference Range Interpretation Comments WHITE BLOOD CELL (test code = WBC) 5.4 K/mm3 4.5-12.5 N RED BLOOD CELL (test code = RBC) 4.09 mill/mm3 3.7-5.2 N HEMOGLOBIN (test code = HGB) 9.2 gram/dL 11.5-15.5 L HEMATOCRIT (test code = HCT) 31.8 % 36.0-46.0 L MEAN CELL VOLUME (test code = MCV) 77.8 fL 80-98 L MEAN CELL HGB (test code = MCH) 22.5 picogram 27.0-33.0 L MEAN CELL HGB CONCETRATION (test code = MCHC) 28.9 gram/dL 33.0-36. 0 L RED CELL DISTRIBUTION WIDTH (test code = RDW) 17.7 % 11.6-16. 2 H RED CELL DISTRIBUTION WIDTH SD (test code = RDW-SD) 49.1 fL 37 .0-51.0 N PLATELET COUNT (test code = PLT) 143 K/mm3 150-450 L MEAN PLATELET VOLUME (test code = MPV) 10.5 fL 6.7-11.0 N NEUTROPHIL % (test code = NT%) 72.6 % 39.0-69.0 H IMMATURE GRANULOCYTE % (test code = IG%) 1.1 % 0.0-5.0 N LYMPHOCYTE % (test code = LY%) 16.9 % 25.0-55.0 L MONOCYTE % (test code = MO%) 5.0 % 0.0-10.0 N EOSINOPHIL % (test code = EO%) 3.7 % 0.0-5.0 N BASOPHIL % (test code = BA%) 0.7 % 0.0-1.0 N NUCLEATED RBC % (test code = NRBC%) 0.0 % 0-0 N NEUTROPHIL # (test code = NT#) 3.89 K/mm3 1.8-7.7 N IMMATURE GRANULOCYTE # (test code = IG#) 0.06 x10 3/uL 0-0.03 H LYMPHOCYTE # (test code = LY#) 0.91 K/mm3 1.0-5.0 L MONOCYTE # (test code = MO#) 0.27 K/mm3 0-0.8 N EOSINOPHIL # (test code = EO#) 0.20 K/mm3 0.0-0.5 N BASOPHIL # (test code = BA#) 0.04 K/mm3 0.0-0.2 N NUCLEATED RBC # (test code = NRBC#) 0.00 K/mm3 0.0-0.1 N MANUAL DIFF REQUIRED (test code = MDIFF) NO, ONLY SCAN NEEDED DIFFERENTIAL [id number] 05:00:00* Test Item Value Reference Range Interpretation Comments STAIN ACCEPTABILITY (test code = STN ACCEPTABLE) CABOT RINGS (test code = CAB) MORPHOLOGY COMMENT (test code = MOC) PLATELET ESTIMATE (test code = PLTEST) PLATELET MORPHOLOGY (test code = PLTMORPH) [id number] 20:25:00* Test Item Value Reference Range Interpretation Comments GLUBED (test code = GLUBED) 146 mg/dL 74-106 H Performed by certified glue spreading machine operator at [facility] [id number] 15:10:00* Test Item Value Reference Range Interpretation Comments GLUBED (test code = GLUBED) 266 mg/dL 74-106 H Performed by certified glue spreading machine operator at [facility] [id number] 11:49:00* Test Item Value Reference Range Interpretation Comments GLUBED (test code = GLUBED) 297 mg/dL 74-106 H Performed by certified glue spreading machine operator at [facility] [id number] 07:56:00* Test Item Value Reference Range Interpretation Comments GLUBED (test code = GLUBED) 241 mg/dL 74-106 H Performed by certified glue spreading machine operator at [facility] [id number] 20:49:00* Test Item Value Reference Range Interpretation Comments GLUBED (test code = GLUBED) 277 mg/dL 74-106 H [facility] glue spreading [facility] [id number] 16:24:00* Test Item Value Reference Range Interpretation Comments GLUBED (test code = GLUBED) 114 mg/dL 74-106 H [facility] certified glue spreading [facility] [id number] 12:12:00* Test Item Value Reference Range Interpretation Comments GLUBED (test code = GLUBED) 229 mg/dL 74-106 H [facility] certified glue spreading machine [facility] [id number] 08:05:00* Test Item Value Reference Range Interpretation Comments GLUBED (test code = GLUBED) 359 mg/dL 74-106 H [facility] certified glue spreading [facility] CBC W/AUTO [id number] 05:51:00* Test Item Value Reference Range Interpretation Comments WHITE BLOOD CELL (test code = WBC) 5.5 K/mm3 4.5-12.5 N RED BLOOD CELL (test code = RBC) 4.08 mill/mm3 3.7-5.2 N HEMOGLOBIN (test code = HGB) 9.2 gram/dL 11.5-15.5 L HEMATOCRIT (test code = HCT) 32.1 % 36.0-46.0 L MEAN CELL VOLUME (test code = MCV) 78.7 fL 80-98 L MEAN CELL HGB (test code = MCH) 22.5 picogram 27.0-33.0 L MEAN CELL HGB CONCETRATION (test code = MCHC) 28.7 gram/dL 33.0-36. 0 L RED CELL DISTRIBUTION WIDTH (test code = RDW) 17.7 % 11.6-16. 2 H RED CELL DISTRIBUTION WIDTH SD (test code = RDW-SD) 49.0 fL 37 .0-51.0 N PLATELET COUNT (test code = PLT) 147 K/mm3 150-450 L MEAN PLATELET VOLUME (test code = MPV) 10.4 fL 6.7-11.0 N NEUTROPHIL % (test code = NT%) 72.8 % 39.0-69.0 H IMMATURE GRANULOCYTE % (test code = IG%) 0.9 % 0.0-5.0 N LYMPHOCYTE % (test code = LY%) 15.8 % 25.0-55.0 L MONOCYTE % (test code = MO%) 5.3 % 0.0-10.0 N EOSINOPHIL % (test code = EO%) 4.3 % 0.0-5.0 N BASOPHIL % (test code = BA%) 0.9 % 0.0-1.0 N NUCLEATED RBC % (test code = NRBC%) 0.0 % 0-0 N NEUTROPHIL # (test code = NT#) 4.02 K/mm3 1.8-7.7 N IMMATURE GRANULOCYTE # (test code = IG#) 0.05 x10 3/uL 0-0.03 H LYMPHOCYTE # (test code = LY#) 0.87 K/mm3 1.0-5.0 L MONOCYTE # (test code = MO#) 0.29 K/mm3 0-0.8 N EOSINOPHIL # (test code = EO#) 0.24 K/mm3 0.0-0.5 N BASOPHIL # (test code = BA#) 0.05 K/mm3 0.0-0.2 N NUCLEATED RBC # (test code = NRBC#) 0.00 K/mm3 0.0-0.1 N MANUAL DIFF REQUIRED (test code = MDIFF) NO, ONLY SCAN NEEDED DIFFERENTIAL [id number] 05:51:00* Test Item Value Reference Range Interpretation Comments STAIN ACCEPTABILITY (test code = STN ACCEPTABLE) STAIN ACCEPTABLE POLYCHROMASIA (test code = POLC) 2+ BASOPHILIC STIPPLING (test code = STP) 1+ ANISOCYTOSIS (test code = ANISO) 2+ MICROCYTOSIS (test code = MICR) 2+ MORPHOLOGY COMMENT (test code = MOC) TEST NOT PERFORMED PLATELET ESTIMATE (test code = PLTEST) ADEQUATE PLATELET MORPHOLOGY (test code = PLTMORPH) NORMAL COMPREHENSIVE METABOLIC [id number] 05:05:00* Test Item Value Reference Range Interpretation Comments SODIUM (test code = NA) 139 mmol/L 136-145 N POTASSIUM (test code = K) 4.1 mmol/L 3.5-5.1 N CHLORIDE (test code = CL) 103.0 mmol/L 98-107 N CARBON DIOXIDE (test code = CO2) 29.0 mmol/L 21-32 N ANION GAP (test code = GAP) 11.1 10-20 N GLUCOSE (test code = GLU) 380 mg/dL 74-106 H BLOOD UREA NITROGEN (test code = BUN) 27 mg/dL 7-18 H GLOMERULAR FILTRATION RATE (test code = GFR) 56 mL/min >=60 Estimated GFR by using Modified MDRD formula.Chronic kidney disease is defined as either kidney damageor GFR <60 mL/min/1.73 m2 for >3 months. CREATININE (test code = CREAT) 1.00 mg/dL 0.55-1.02 N Note change in reference range due to change in reagent. BUN/CREATININE RATIO (test code = BUN/CREA) 27.0 10-20 H TOTAL PROTEIN (test code = PROT) 6.1 gram/dL 6.4-8.2 L ALBUMIN (test code = ALB) 2.9 g/dL 3.4-5.0 L GLOBULIN (test code = GLOB) 3.2 gram/dL 2.7-4.2 N ALBUMIN/GLOBULIN RATIO (test code = A/G) 0.9 0.75-1.50 N CALCIUM (test code = CA) 8.1 mg/dL 8.5-10.1 L BILIRUBIN TOTAL (test code = BILT) 0.30 mg/dL 0.0-1.0 N SGOT/AST (test code = AST) 5 IUnit/L 15-37 L SGPT/ALT (test code = ALT) 22 IUnit/L 12-78 N ALKALINE PHOSPHATASE TOTAL (test code = ALKP) 110 IUnit/L 45-117 N Note change in reference range due to change in reagent. COMPREHENSIVE METABOLIC [id number] 04:51:00* Test Item Value Reference Range Interpretation Comments SODIUM (test code = NA) 139 mmol/L 136-145 N POTASSIUM (test code = K) 4.1 mmol/L 3.5-5.1 N CHLORIDE (test code = CL) 103.0 mmol/L 98-107 N CARBON DIOXIDE (test code = CO2) mmol/L 21-32 ANION GAP (test code = GAP) 10-20 GLUCOSE (test code = GLU) mg/dL 74-106 BLOOD UREA NITROGEN (test code = BUN) mg/dL 7-18 GLOMERULAR FILTRATION RATE (test code = GFR) mL/min >=60 CREATININE (test code = CREAT) mg/dL 0.55-1.02 BUN/CREATININE RATIO (test code = BUN/CREA) 10-20 TOTAL PROTEIN (test code = PROT) gram/dL 6.4-8.2 ALBUMIN (test code = ALB) g/dL 3.4-5.0 GLOBULIN (test code = GLOB) gram/dL 2.7-4.2 ALBUMIN/GLOBULIN RATIO (test code = A/G) 0.75-1.50 CALCIUM (test code = CA) mg/dL 8.5-10.1 BILIRUBIN TOTAL (test code = BILT) mg/dL 0.0-1.0 SGOT/AST (test code = AST) IUnit/L 15-37 SGPT/ALT (test code = ALT) IUnit/L 12-78 ALKALINE PHOSPHATASE TOTAL (test code = ALKP) IUnit/L 45-117 CBC W/AUTO [id number] 04:41:00* Test Item Value Reference Range Interpretation Comments WHITE BLOOD CELL (test code = WBC) 5.5 K/mm3 4.5-12.5 N RED BLOOD CELL (test code = RBC) 4.08 mill/mm3 3.7-5.2 N HEMOGLOBIN (test code = HGB) 9.2 gram/dL 11.5-15.5 L HEMATOCRIT (test code = HCT) 32.1 % 36.0-46.0 L MEAN CELL VOLUME (test code = MCV) 78.7 fL 80-98 L MEAN CELL HGB (test code = MCH) 22.5 picogram 27.0-33.0 L MEAN CELL HGB CONCETRATION (test code = MCHC) 28.7 gram/dL 33.0-36. 0 L RED CELL DISTRIBUTION WIDTH (test code = RDW) 17.7 % 11.6-16. 2 H RED CELL DISTRIBUTION WIDTH SD (test code = RDW-SD) 49.0 fL 37 .0-51.0 N PLATELET COUNT (test code = PLT) 147 K/mm3 150-450 L MEAN PLATELET VOLUME (test code = MPV) 10.4 fL 6.7-11.0 N NEUTROPHIL % (test code = NT%) 72.8 % 39.0-69.0 H IMMATURE GRANULOCYTE % (test code = IG%) 0.9 % 0.0-5.0 N LYMPHOCYTE % (test code = LY%) 15.8 % 25.0-55.0 L MONOCYTE % (test code = MO%) 5.3 % 0.0-10.0 N EOSINOPHIL % (test code = EO%) 4.3 % 0.0-5.0 N BASOPHIL % (test code = BA%) 0.9 % 0.0-1.0 N NUCLEATED RBC % (test code = NRBC%) 0.0 % 0-0 N NEUTROPHIL # (test code = NT#) 4.02 K/mm3 1.8-7.7 N IMMATURE GRANULOCYTE # (test code = IG#) 0.05 x10 3/uL 0-0.03 H LYMPHOCYTE # (test code = LY#) 0.87 K/mm3 1.0-5.0 L MONOCYTE # (test code = MO#) 0.29 K/mm3 0-0.8 N EOSINOPHIL # (test code = EO#) 0.24 K/mm3 0.0-0.5 N BASOPHIL # (test code = BA#) 0.05 K/mm3 0.0-0.2 N NUCLEATED RBC # (test code = NRBC#) 0.00 K/mm3 0.0-0.1 N MANUAL DIFF REQUIRED (test code = MDIFF) NO, ONLY SCAN NEEDED DIFFERENTIAL [id number] 04:41:00* Test Item Value Reference Range Interpretation Comments STAIN ACCEPTABILITY (test code = STN ACCEPTABLE) CABOT RINGS (test code = CAB) MORPHOLOGY COMMENT (test code = MOC) PLATELET ESTIMATE (test code = PLTEST) PLATELET MORPHOLOGY (test code = PLTMORPH) CBC W/AUTO [id number] 04:41:00* Test Item Value Reference Range Interpretation Comments WHITE BLOOD CELL (test code = WBC) 5.5 K/mm3 4.5-12.5 N RED BLOOD CELL (test code = RBC) 4.08 mill/mm3 3.7-5.2 N HEMOGLOBIN (test code = HGB) 9.2 gram/dL 11.5-15.5 L HEMATOCRIT (test code = HCT) 32.1 % 36.0-46.0 L MEAN CELL VOLUME (test code = MCV) 78.7 fL 80-98 L MEAN CELL HGB (test code = MCH) 22.5 picogram 27.0-33.0 L MEAN CELL HGB CONCETRATION (test code = MCHC) 28.7 gram/dL 33.0-36. 0 L RED CELL DISTRIBUTION WIDTH (test code = RDW) 17.7 % 11.6-16. 2 H RED CELL DISTRIBUTION WIDTH SD (test code = RDW-SD) 49.0 fL 37 .0-51.0 N PLATELET COUNT (test code = PLT) 147 K/mm3 150-450 L MEAN PLATELET VOLUME (test code = MPV) 10.4 fL 6.7-11.0 N NEUTROPHIL % (test code = NT%) 72.8 % 39.0-69.0 H IMMATURE GRANULOCYTE % (test code = IG%) 0.9 % 0.0-5.0 N LYMPHOCYTE % (test code = LY%) 15.8 % 25.0-55.0 L MONOCYTE % (test code = MO%) 5.3 % 0.0-10.0 N EOSINOPHIL % (test code = EO%) 4.3 % 0.0-5.0 N BASOPHIL % (test code = BA%) 0.9 % 0.0-1.0 N NUCLEATED RBC % (test code = NRBC%) 0.0 % 0-0 N NEUTROPHIL # (test code = NT#) 4.02 K/mm3 1.8-7.7 N IMMATURE GRANULOCYTE # (test code = IG#) 0.05 x10 3/uL 0-0.03 H LYMPHOCYTE # (test code = LY#) 0.87 K/mm3 1.0-5.0 L MONOCYTE # (test code = MO#) 0.29 K/mm3 0-0.8 N EOSINOPHIL # (test code = EO#) 0.24 K/mm3 0.0-0.5 N BASOPHIL # (test code = BA#) 0.05 K/mm3 0.0-0.2 N NUCLEATED RBC # (test code = NRBC#) 0.00 K/mm3 0.0-0.1 N MANUAL DIFF REQUIRED (test code = MDIFF) NO, ONLY SCAN NEEDED DIFFERENTIAL [id number] 04:41:00* Test Item Value Reference Range Interpretation Comments STAIN ACCEPTABILITY (test code = STN ACCEPTABLE) CABOT RINGS (test code = CAB) MORPHOLOGY COMMENT (test code = MOC) PLATELET ESTIMATE (test code = PLTEST) PLATELET MORPHOLOGY (test code = PLTMORPH) CBC W/AUTO [id number] 04:41:00* Test Item Value Reference Range Interpretation Comments WHITE BLOOD CELL (test code = WBC) 5.5 K/mm3 4.5-12.5 N RED BLOOD CELL (test code = RBC) 4.08 mill/mm3 3.7-5.2 N HEMOGLOBIN (test code = HGB) 9.2 gram/dL 11.5-15.5 L HEMATOCRIT (test code = HCT) 32.1 % 36.0-46.0 L MEAN CELL VOLUME (test code = MCV) 78.7 fL 80-98 L MEAN CELL HGB (test code = MCH) 22.5 picogram 27.0-33.0 L MEAN CELL HGB CONCETRATION (test code = MCHC) 28.7 gram/dL 33.0-36. 0 L RED CELL DISTRIBUTION WIDTH (test code = RDW) 17.7 % 11.6-16. 2 H RED CELL DISTRIBUTION WIDTH SD (test code = RDW-SD) 49.0 fL 37 .0-51.0 N PLATELET COUNT (test code = PLT) 147 K/mm3 150-450 L MEAN PLATELET VOLUME (test code = MPV) 10.4 fL 6.7-11.0 N NEUTROPHIL % (test code = NT%) 72.8 % 39.0-69.0 H IMMATURE GRANULOCYTE % (test code = IG%) 0.9 % 0.0-5.0 N LYMPHOCYTE % (test code = LY%) 15.8 % 25.0-55.0 L MONOCYTE % (test code = MO%) 5.3 % 0.0-10.0 N EOSINOPHIL % (test code = EO%) 4.3 % 0.0-5.0 N BASOPHIL % (test code = BA%) 0.9 % 0.0-1.0 N NUCLEATED RBC % (test code = NRBC%) 0.0 % 0-0 N NEUTROPHIL # (test code = NT#) 4.02 K/mm3 1.8-7.7 N IMMATURE GRANULOCYTE # (test code = IG#) 0.05 x10 3/uL 0-0.03 H LYMPHOCYTE # (test code = LY#) 0.87 K/mm3 1.0-5.0 L MONOCYTE # (test code = MO#) 0.29 K/mm3 0-0.8 N EOSINOPHIL # (test code = EO#) 0.24 K/mm3 0.0-0.5 N BASOPHIL # (test code = BA#) 0.05 K/mm3 0.0-0.2 N NUCLEATED RBC # (test code = NRBC#) 0.00 K/mm3 0.0-0.1 N MANUAL DIFF REQUIRED (test code = MDIFF) NO, ONLY SCAN NEEDED DIFFERENTIAL [id number] 04:41:00* Test Item Value Reference Range Interpretation Comments STAIN ACCEPTABILITY (test code = STN ACCEPTABLE) MORPHOLOGY COMMENT (test code = MOC) PLATELET ESTIMATE (test code = PLTEST) PLATELET MORPHOLOGY (test code = PLTMORPH) CBC W/AUTO [id number] 04:41:00* Test Item Value Reference Range Interpretation Comments WHITE BLOOD CELL (test code = WBC) 5.5 K/mm3 4.5-12.5 N RED BLOOD CELL (test code = RBC) 4.08 mill/mm3 3.7-5.2 N HEMOGLOBIN (test code = HGB) 9.2 gram/dL 11.5-15.5 L HEMATOCRIT (test code = HCT) 32.1 % 36.0-46.0 L MEAN CELL VOLUME (test code = MCV) 78.7 fL 80-98 L MEAN CELL HGB (test code = MCH) 22.5 picogram 27.0-33.0 L MEAN CELL HGB CONCETRATION (test code = MCHC) 28.7 gram/dL 33.0-36. 0 L RED CELL DISTRIBUTION WIDTH (test code = RDW) 17.7 % 11.6-16. 2 H RED CELL DISTRIBUTION WIDTH SD (test code = RDW-SD) 49.0 fL 37 .0-51.0 N PLATELET COUNT (test code = PLT) 147 K/mm3 150-450 L MEAN PLATELET VOLUME (test code = MPV) 10.4 fL 6.7-11.0 N NEUTROPHIL % (test code = NT%) 72.8 % 39.0-69.0 H IMMATURE GRANULOCYTE % (test code = IG%) 0.9 % 0.0-5.0 N LYMPHOCYTE % (test code = LY%) 15.8 % 25.0-55.0 L MONOCYTE % (test code = MO%) 5.3 % 0.0-10.0 N EOSINOPHIL % (test code = EO%) 4.3 % 0.0-5.0 N BASOPHIL % (test code = BA%) 0.9 % 0.0-1.0 N NUCLEATED RBC % (test code = NRBC%) 0.0 % 0-0 N NEUTROPHIL # (test code = NT#) 4.02 K/mm3 1.8-7.7 N IMMATURE GRANULOCYTE # (test code = IG#) 0.05 x10 3/uL 0-0.03 H LYMPHOCYTE # (test code = LY#) 0.87 K/mm3 1.0-5.0 L MONOCYTE # (test code = MO#) 0.29 K/mm3 0-0.8 N EOSINOPHIL # (test code = EO#) 0.24 K/mm3 0.0-0.5 N BASOPHIL # (test code = BA#) 0.05 K/mm3 0.0-0.2 N NUCLEATED RBC # (test code = NRBC#) 0.00 K/mm3 0.0-0.1 N MANUAL DIFF REQUIRED (test code = MDIFF) NO, ONLY SCAN NEEDED DIFFERENTIAL [id number] 04:41:00* Test Item Value Reference Range Interpretation Comments STAIN ACCEPTABILITY (test code = STN ACCEPTABLE) CABOT RINGS (test code = CAB) MORPHOLOGY COMMENT (test code = MOC) PLATELET ESTIMATE (test code = PLTEST) PLATELET MORPHOLOGY (test code = PLTMORPH) [id number] 20:46:00* Test Item Value Reference Range Interpretation Comments GLUBED (test code = GLUBED) 242 mg/dL 74-106 H Performed by certified glue spreading machine operator at [facility] [id number] 16:35:00* Test Item Value Reference Range Interpretation Comments GLUBED (test code = GLUBED) 345 mg/dL 74-106 H [facility] glue spreading [facility] BASIC METABOLIC [id number] 09:05:00* Test Item Value Reference Range Interpretation Comments SODIUM (test code = NA) 139 mmol/L 136-145 N POTASSIUM (test code = K) 3.9 mmol/L 3.5-5.1 N CHLORIDE (test code = CL) 101.0 mmol/L 98-107 N CARBON DIOXIDE (test code = CO2) 31.0 mmol/L 21-32 N ANION GAP (test code = GAP) 10.9 10-20 N GLUCOSE (test code = GLU) 322 mg/dL 74-106 H BLOOD UREA NITROGEN (test code = BUN) 23 mg/dL 7-18 H GLOMERULAR FILTRATION RATE (test code = GFR) > 60 mL/min >=60 Estimated GFR by using Modified MDRD formula.Chronic kidney disease is defined as either kidney damageor GFR <60 mL/min/1.73 m2 for >3 months. CREATININE (test code = CREAT) 0.90 mg/dL 0.55-1.02 N Note change in reference range due to change in reagent. BUN/CREATININE RATIO (test code = BUN/CREA) 25.6 10-20 H CALCIUM (test code = CA) 8.7 mg/dL 8.5-10.1 N BASIC METABOLIC [id number] 09:00:00* Test Item Value Reference Range Interpretation Comments SODIUM (test code = NA) 139 mmol/L 136-145 N POTASSIUM (test code = K) 3.9 mmol/L 3.5-5.1 N CHLORIDE (test code = CL) 101.0 mmol/L 98-107 N CARBON DIOXIDE (test code = CO2) mmol/L 21-32 ANION GAP (test code = GAP) 10-20 GLUCOSE (test code = GLU) mg/dL 74-106 BLOOD UREA NITROGEN (test code = BUN) mg/dL 7-18 GLOMERULAR FILTRATION RATE (test code = GFR) mL/min >=60 CREATININE (test code = CREAT) mg/dL 0.55-1.02 BUN/CREATININE RATIO (test code = BUN/CREA) 10-20 CALCIUM (test code = CA) mg/dL 8.5-10.1 [id number] 08:20:00* Test Item Value Reference Range Interpretation Comments GLUBED (test code = GLUBED) 349 mg/dL 74-106 H [facility] glue spreading [facility] CBC W/AUTO [id number] 06:48:00* Test Item Value Reference Range Interpretation Comments WHITE BLOOD CELL (test code = WBC) 5.9 K/mm3 4.5-12.5 N RED BLOOD CELL (test code = RBC) 4.21 mill/mm3 3.7-5.2 N HEMOGLOBIN (test code = HGB) 9.5 gram/dL 11.5-15.5 L HEMATOCRIT (test code = HCT) 32.0 % 36.0-46.0 L MEAN CELL VOLUME (test code = MCV) 76.0 fL 80-98 L MEAN CELL HGB (test code = MCH) 22.6 picogram 27.0-33.0 L MEAN CELL HGB CONCETRATION (test code = MCHC) 29.7 gram/dL 33.0-36. 0 L RED CELL DISTRIBUTION WIDTH (test code = RDW) 17.2 % 11.6-16. 2 H RED CELL DISTRIBUTION WIDTH SD (test code = RDW-SD) 46.1 fL 37 .0-51.0 N PLATELET COUNT (test code = PLT) 143 K/mm3 150-450 L MEAN PLATELET VOLUME (test code = MPV) 10.4 fL 6.7-11.0 N NEUTROPHIL % (test code = NT%) 73.6 % 39.0-69.0 H IMMATURE GRANULOCYTE % (test code = IG%) 1.4 % 0.0-5.0 N LYMPHOCYTE % (test code = LY%) 16.6 % 25.0-55.0 L MONOCYTE % (test code = MO%) 4.7 % 0.0-10.0 N EOSINOPHIL % (test code = EO%) 3.2 % 0.0-5.0 N BASOPHIL % (test code = BA%) 0.5 % 0.0-1.0 N NUCLEATED RBC % (test code = NRBC%) 0.0 % 0-0 N NEUTROPHIL # (test code = NT#) 4.36 K/mm3 1.8-7.7 N IMMATURE GRANULOCYTE # (test code = IG#) 0.08 x10 3/uL 0-0.03 H LYMPHOCYTE # (test code = LY#) 0.98 K/mm3 1.0-5.0 L MONOCYTE # (test code = MO#) 0.28 K/mm3 0-0.8 N EOSINOPHIL # (test code = EO#) 0.19 K/mm3 0.0-0.5 N BASOPHIL # (test code = BA#) 0.03 K/mm3 0.0-0.2 N NUCLEATED RBC # (test code = NRBC#) 0.00 K/mm3 0.0-0.1 N MANUAL DIFF REQUIRED (test code = MDIFF) NO, ONLY SCAN NEEDED DIFFERENTIAL [id number] 06:48:00* Test Item Value Reference Range Interpretation Comments STAIN ACCEPTABILITY (test code = STN ACCEPTABLE) STAIN ACCEPTABLE POLYCHROMASIA (test code = POLC) 2+ HYPOCHROMIA (test code = HYPO) 1+ ANISOCYTOSIS (test code = ANISO) 2+ MICROCYTOSIS (test code = MICR) 2+ PLATELET ESTIMATE (test code = PLTEST) DECREASED PLATELET MORPHOLOGY (test code = PLTMORPH) NORMAL COMPREHENSIVE METABOLIC [id number] 05:21:00* Test Item Value Reference Range Interpretation Comments SODIUM (test code = NA) 140 mmol/L 136-145 N POTASSIUM (test code = K) 3.8 mmol/L 3.5-5.1 N CHLORIDE (test code = CL) 104.0 mmol/L 98-107 N CARBON DIOXIDE (test code = CO2) 29.0 mmol/L 21-32 N ANION GAP (test code = GAP) 10.8 10-20 N GLUCOSE (test code = GLU) 270 mg/dL 74-106 H BLOOD UREA NITROGEN (test code = BUN) 24 mg/dL 7-18 H GLOMERULAR FILTRATION RATE (test code = GFR) > 60 mL/min >=60 Estimated GFR by using Modified MDRD formula.Chronic kidney disease is defined as either kidney damageor GFR <60 mL/min/1.73 m2 for >3 months. CREATININE (test code = CREAT) 0.90 mg/dL 0.55-1.02 N Note change in reference range due to change in reagent. BUN/CREATININE RATIO (test code = BUN/CREA) 26.7 10-20 H TOTAL PROTEIN (test code = PROT) 6.3 gram/dL 6.4-8.2 L ALBUMIN (test code = ALB) 2.9 g/dL 3.4-5.0 L GLOBULIN (test code = GLOB) 3.4 gram/dL 2.7-4.2 N ALBUMIN/GLOBULIN RATIO (test code = A/G) 0.9 0.75-1.50 N CALCIUM (test code = CA) 8.4 mg/dL 8.5-10.1 L BILIRUBIN TOTAL (test code = BILT) 0.40 mg/dL 0.0-1.0 N SGOT/AST (test code = AST) 9 IUnit/L 15-37 L SGPT/ALT (test code = ALT) 23 IUnit/L 12-78 N ALKALINE PHOSPHATASE TOTAL (test code = ALKP) 105 IUnit/L 45-117 N Note change in reference range due to change in reagent. COMPREHENSIVE METABOLIC [id number] 05:14:00* Test Item Value Reference Range Interpretation Comments SODIUM (test code = NA) 140 mmol/L 136-145 N POTASSIUM (test code = K) 3.8 mmol/L 3.5-5.1 N CHLORIDE (test code = CL) 104.0 mmol/L 98-107 N CARBON DIOXIDE (test code = CO2) mmol/L 21-32 ANION GAP (test code = GAP) 10-20 GLUCOSE (test code = GLU) mg/dL 74-106 BLOOD UREA NITROGEN (test code = BUN) mg/dL 7-18 GLOMERULAR FILTRATION RATE (test code = GFR) mL/min >=60 CREATININE (test code = CREAT) mg/dL 0.55-1.02 BUN/CREATININE RATIO (test code = BUN/CREA) 10-20 TOTAL PROTEIN (test code = PROT) gram/dL 6.4-8.2 ALBUMIN (test code = ALB) g/dL 3.4-5.0 GLOBULIN (test code = GLOB) gram/dL 2.7-4.2 ALBUMIN/GLOBULIN RATIO (test code = A/G) 0.75-1.50 CALCIUM (test code = CA) mg/dL 8.5-10.1 BILIRUBIN TOTAL (test code = BILT) mg/dL 0.0-1.0 SGOT/AST (test code = AST) IUnit/L 15-37 SGPT/ALT (test code = ALT) IUnit/L 12-78 ALKALINE PHOSPHATASE TOTAL (test code = ALKP) IUnit/L 45-117 CBC W/AUTO [id number] 05:08:00* Test Item Value Reference Range Interpretation Comments WHITE BLOOD CELL (test code = WBC) 5.9 K/mm3 4.5-12.5 N RED BLOOD CELL (test code = RBC) 4.21 mill/mm3 3.7-5.2 N HEMOGLOBIN (test code = HGB) 9.5 gram/dL 11.5-15.5 L HEMATOCRIT (test code = HCT) 32.0 % 36.0-46.0 L MEAN CELL VOLUME (test code = MCV) 76.0 fL 80-98 L MEAN CELL HGB (test code = MCH) 22.6 picogram 27.0-33.0 L MEAN CELL HGB CONCETRATION (test code = MCHC) 29.7 gram/dL 33.0-36. 0 L RED CELL DISTRIBUTION WIDTH (test code = RDW) 17.2 % 11.6-16. 2 H RED CELL DISTRIBUTION WIDTH SD (test code = RDW-SD) 46.1 fL 37 .0-51.0 N PLATELET COUNT (test code = PLT) 143 K/mm3 150-450 L MEAN PLATELET VOLUME (test code = MPV) 10.4 fL 6.7-11.0 N NEUTROPHIL % (test code = NT%) 73.6 % 39.0-69.0 H IMMATURE GRANULOCYTE % (test code = IG%) 1.4 % 0.0-5.0 N LYMPHOCYTE % (test code = LY%) 16.6 % 25.0-55.0 L MONOCYTE % (test code = MO%) 4.7 % 0.0-10.0 N EOSINOPHIL % (test code = EO%) 3.2 % 0.0-5.0 N BASOPHIL % (test code = BA%) 0.5 % 0.0-1.0 N NUCLEATED RBC % (test code = NRBC%) 0.0 % 0-0 N NEUTROPHIL # (test code = NT#) 4.36 K/mm3 1.8-7.7 N IMMATURE GRANULOCYTE # (test code = IG#) 0.08 x10 3/uL 0-0.03 H LYMPHOCYTE # (test code = LY#) 0.98 K/mm3 1.0-5.0 L MONOCYTE # (test code = MO#) 0.28 K/mm3 0-0.8 N EOSINOPHIL # (test code = EO#) 0.19 K/mm3 0.0-0.5 N BASOPHIL # (test code = BA#) 0.03 K/mm3 0.0-0.2 N NUCLEATED RBC # (test code = NRBC#) 0.00 K/mm3 0.0-0.1 N MANUAL DIFF REQUIRED (test code = MDIFF) NO, ONLY SCAN NEEDED DIFFERENTIAL [id number] 05:08:00* Test Item Value Reference Range Interpretation Comments STAIN ACCEPTABILITY (test code = STN ACCEPTABLE) CABOT RINGS (test code = CAB) MORPHOLOGY COMMENT (test code = MOC) PLATELET ESTIMATE (test code = PLTEST) PLATELET MORPHOLOGY (test code = PLTMORPH) CBC W/AUTO [id number] 05:08:00* Test Item Value Reference Range Interpretation Comments WHITE BLOOD CELL (test code = WBC) 5.9 K/mm3 4.5-12.5 N RED BLOOD CELL (test code = RBC) 4.21 mill/mm3 3.7-5.2 N HEMOGLOBIN (test code = HGB) 9.5 gram/dL 11.5-15.5 L HEMATOCRIT (test code = HCT) 32.0 % 36.0-46.0 L MEAN CELL VOLUME (test code = MCV) 76.0 fL 80-98 L MEAN CELL HGB (test code = MCH) 22.6 picogram 27.0-33.0 L MEAN CELL HGB CONCETRATION (test code = MCHC) 29.7 gram/dL 33.0-36. 0 L RED CELL DISTRIBUTION WIDTH (test code = RDW) 17.2 % 11.6-16. 2 H RED CELL DISTRIBUTION WIDTH SD (test code = RDW-SD) 46.1 fL 37 .0-51.0 N PLATELET COUNT (test code = PLT) 143 K/mm3 150-450 L MEAN PLATELET VOLUME (test code = MPV) 10.4 fL 6.7-11.0 N NEUTROPHIL % (test code = NT%) 73.6 % 39.0-69.0 H IMMATURE GRANULOCYTE % (test code = IG%) 1.4 % 0.0-5.0 N LYMPHOCYTE % (test code = LY%) 16.6 % 25.0-55.0 L MONOCYTE % (test code = MO%) 4.7 % 0.0-10.0 N EOSINOPHIL % (test code = EO%) 3.2 % 0.0-5.0 N BASOPHIL % (test code = BA%) 0.5 % 0.0-1.0 N NUCLEATED RBC % (test code = NRBC%) 0.0 % 0-0 N NEUTROPHIL # (test code = NT#) 4.36 K/mm3 1.8-7.7 N IMMATURE GRANULOCYTE # (test code = IG#) 0.08 x10 3/uL 0-0.03 H LYMPHOCYTE # (test code = LY#) 0.98 K/mm3 1.0-5.0 L MONOCYTE # (test code = MO#) 0.28 K/mm3 0-0.8 N EOSINOPHIL # (test code = EO#) 0.19 K/mm3 0.0-0.5 N BASOPHIL # (test code = BA#) 0.03 K/mm3 0.0-0.2 N NUCLEATED RBC # (test code = NRBC#) 0.00 K/mm3 0.0-0.1 N MANUAL DIFF REQUIRED (test code = MDIFF) NO, ONLY SCAN NEEDED DIFFERENTIAL [id number] 05:08:00* Test Item Value Reference Range Interpretation Comments STAIN ACCEPTABILITY (test code = STN ACCEPTABLE) CABOT RINGS (test code = CAB) MORPHOLOGY COMMENT (test code = MOC) PLATELET ESTIMATE (test code = PLTEST) PLATELET MORPHOLOGY (test code = PLTMORPH) CBC W/AUTO [id number] 05:08:00* Test Item Value Reference Range Interpretation Comments WHITE BLOOD CELL (test code = WBC) 5.9 K/mm3 4.5-12.5 N RED BLOOD CELL (test code = RBC) 4.21 mill/mm3 3.7-5.2 N HEMOGLOBIN (test code = HGB) 9.5 gram/dL 11.5-15.5 L HEMATOCRIT (test code = HCT) 32.0 % 36.0-46.0 L MEAN CELL VOLUME (test code = MCV) 76.0 fL 80-98 L MEAN CELL HGB (test code = MCH) 22.6 picogram 27.0-33.0 L MEAN CELL HGB CONCETRATION (test code = MCHC) 29.7 gram/dL 33.0-36. 0 L RED CELL DISTRIBUTION WIDTH (test code = RDW) 17.2 % 11.6-16. 2 H RED CELL DISTRIBUTION WIDTH SD (test code = RDW-SD) 46.1 fL 37 .0-51.0 N PLATELET COUNT (test code = PLT) 143 K/mm3 150-450 L MEAN PLATELET VOLUME (test code = MPV) 10.4 fL 6.7-11.0 N NEUTROPHIL % (test code = NT%) 73.6 % 39.0-69.0 H IMMATURE GRANULOCYTE % (test code = IG%) 1.4 % 0.0-5.0 N LYMPHOCYTE % (test code = LY%) 16.6 % 25.0-55.0 L MONOCYTE % (test code = MO%) 4.7 % 0.0-10.0 N EOSINOPHIL % (test code = EO%) 3.2 % 0.0-5.0 N BASOPHIL % (test code = BA%) 0.5 % 0.0-1.0 N NUCLEATED RBC % (test code = NRBC%) 0.0 % 0-0 N NEUTROPHIL # (test code = NT#) 4.36 K/mm3 1.8-7.7 N IMMATURE GRANULOCYTE # (test code = IG#) 0.08 x10 3/uL 0-0.03 H LYMPHOCYTE # (test code = LY#) 0.98 K/mm3 1.0-5.0 L MONOCYTE # (test code = MO#) 0.28 K/mm3 0-0.8 N EOSINOPHIL # (test code = EO#) 0.19 K/mm3 0.0-0.5 N BASOPHIL # (test code = BA#) 0.03 K/mm3 0.0-0.2 N NUCLEATED RBC # (test code = NRBC#) 0.00 K/mm3 0.0-0.1 N MANUAL DIFF REQUIRED (test code = MDIFF) NO, ONLY SCAN NEEDED DIFFERENTIAL [id number] 05:08:00* Test Item Value Reference Range Interpretation Comments STAIN ACCEPTABILITY (test code = STN ACCEPTABLE) MORPHOLOGY COMMENT (test code = MOC) PLATELET ESTIMATE (test code = PLTEST) PLATELET MORPHOLOGY (test code = PLTMORPH) CBC W/AUTO [id number] 05:08:00* Test Item Value Reference Range Interpretation Comments WHITE BLOOD CELL (test code = WBC) 5.9 K/mm3 4.5-12.5 N RED BLOOD CELL (test code = RBC) 4.21 mill/mm3 3.7-5.2 N HEMOGLOBIN (test code = HGB) 9.5 gram/dL 11.5-15.5 L HEMATOCRIT (test code = HCT) 32.0 % 36.0-46.0 L MEAN CELL VOLUME (test code = MCV) 76.0 fL 80-98 L MEAN CELL HGB (test code = MCH) 22.6 picogram 27.0-33.0 L MEAN CELL HGB CONCETRATION (test code = MCHC) 29.7 gram/dL 33.0-36. 0 L RED CELL DISTRIBUTION WIDTH (test code = RDW) 17.2 % 11.6-16. 2 H RED CELL DISTRIBUTION WIDTH SD (test code = RDW-SD) 46.1 fL 37 .0-51.0 N PLATELET COUNT (test code = PLT) 143 K/mm3 150-450 L MEAN PLATELET VOLUME (test code = MPV) 10.4 fL 6.7-11.0 N NEUTROPHIL % (test code = NT%) 73.6 % 39.0-69.0 H IMMATURE GRANULOCYTE % (test code = IG%) 1.4 % 0.0-5.0 N LYMPHOCYTE % (test code = LY%) 16.6 % 25.0-55.0 L MONOCYTE % (test code = MO%) 4.7 % 0.0-10.0 N EOSINOPHIL % (test code = EO%) 3.2 % 0.0-5.0 N BASOPHIL % (test code = BA%) 0.5 % 0.0-1.0 N NUCLEATED RBC % (test code = NRBC%) 0.0 % 0-0 N NEUTROPHIL # (test code = NT#) 4.36 K/mm3 1.8-7.7 N IMMATURE GRANULOCYTE # (test code = IG#) 0.08 x10 3/uL 0-0.03 H LYMPHOCYTE # (test code = LY#) 0.98 K/mm3 1.0-5.0 L MONOCYTE # (test code = MO#) 0.28 K/mm3 0-0.8 N EOSINOPHIL # (test code = EO#) 0.19 K/mm3 0.0-0.5 N BASOPHIL # (test code = BA#) 0.03 K/mm3 0.0-0.2 N NUCLEATED RBC # (test code = NRBC#) 0.00 K/mm3 0.0-0.1 N MANUAL DIFF REQUIRED (test code = MDIFF) NO, ONLY SCAN NEEDED DIFFERENTIAL [id number] 05:08:00* Test Item Value Reference Range Interpretation Comments STAIN ACCEPTABILITY (test code = STN ACCEPTABLE) CABOT RINGS (test code = CAB) MORPHOLOGY COMMENT (test code = MOC) PLATELET ESTIMATE (test code = PLTEST) PLATELET MORPHOLOGY (test code = PLTMORPH) [id number] 20:40:00* Test Item Value Reference Range Interpretation Comments GLUBED (test code = GLUBED) 160 mg/dL 74-106 H Performed by certified glue spreading machine operator at [facility] Coronavirus 2019 nCoV [id number] 18:50:00* Test Item Value Reference Range Interpretation Comments Coronavirus 2019 nCoV Bedside (test code = [id number]) Negative [id number] 16:03:00* Test Item Value Reference Range Interpretation Comments GLUBED (test code = GLUBED) 310 mg/dL 74-106 H [facility] glue spreading [facility] [id number] 11:57:00* Test Item Value Reference Range Interpretation Comments GLUBED (test code = GLUBED) 416 mg/dL 74-106 H [facility] certified glue spreading [facility] [id number] 08:07:00* Test Item Value Reference Range Interpretation Comments GLUBED (test code = GLUBED) 356 mg/dL 74-106 H [facility] certified glue spreading machine [facility] BASIC METABOLIC [id number] 04:53:00* Test Item Value Reference Range Interpretation Comments SODIUM (test code = NA) 139 mmol/L 136-145 N POTASSIUM (test code = K) 4.3 mmol/L 3.5-5.1 N CHLORIDE (test code = CL) 106.0 mmol/L 98-107 N CARBON DIOXIDE (test code = CO2) 26.0 mmol/L 21-32 N ANION GAP (test code = GAP) 11.3 10-20 N GLUCOSE (test code = GLU) 338 mg/dL 74-106 H BLOOD UREA NITROGEN (test code = BUN) 21 mg/dL 7-18 H GLOMERULAR FILTRATION RATE (test code = GFR) > 60 mL/min >=60 Estimated GFR by using Modified MDRD formula.Chronic kidney disease is defined as either kidney damageor GFR <60 mL/min/1.73 m2 for >3 months. CREATININE (test code = CREAT) 0.90 mg/dL 0.55-1.02 N Note change in reference range due to change in reagent. BUN/CREATININE RATIO (test code = BUN/CREA) 23.3 10-20 H CALCIUM (test code = CA) 8.5 mg/dL 8.5-10.1 N [id number] 04:53:00* Test Item Value Reference Range Interpretation Comments MAGNESIUM (test code = MAG) 1.9 mg/dL 1.8-2.4 N [id number] 23:55:00* Test Item Value Reference Range Interpretation Comments GLUBED (test code = GLUBED) 391 mg/dL 74-106 H Performed by certified glue spreading machine operator at [facility] [id number] 20:25:00* Test Item Value Reference Range Interpretation Comments GLUBED (test code = GLUBED) 452 mg/dL 74-106 H [facility] glue spreading machine [facility] [id number] 20:15:00* Test Item Value Reference Range Interpretation Comments TROPONIN-I (test code = TROPI) <0.015 ng/mL 0-0.045 N COMMENTS TO PATIENT EDUCATOR: COLLECT 3 HOURS AFTER PREVIOUS [id number] 17:14:00* Test Item Value Reference Range Interpretation Comments TROPONIN-I (test code = TROPI) <0.015 ng/mL 0-0.045 N COMMENTS TO PATIENT EDUCATOR: COLLECT 3 HOURS AFTER PREVIOUS [id number] 15:52:00* Test Item Value Reference Range Interpretation Comments GLUBED (test code = GLUBED) 90 mg/dL 74-106 N Performed by certified glue spreading machine operator at [facility] B-TYPE NATRIURETIC [id number] 10:43:00* Test Item Value Reference Range Interpretation Comments B-TYPE NATRIURETIC PEPTIDE (test code = BNP) 120.97 pgram/mL 0-100 H BASIC METABOLIC [id number] 10:37:00* Test Item Value Reference Range Interpretation Comments SODIUM (test code = NA) 139 mmol/L 136-145 N POTASSIUM (test code = K) 3.9 mmol/L 3.5-5.1 N CHLORIDE (test code = CL) 109.0 mmol/L 98-107 H CARBON DIOXIDE (test code = CO2) 25.0 mmol/L 21-32 N ANION GAP (test code = GAP) 8.9 10-20 L GLUCOSE (test code = GLU) 202 mg/dL 74-106 H BLOOD UREA NITROGEN (test code = BUN) 22 mg/dL 7-18 H GLOMERULAR FILTRATION RATE (test code = GFR) > 60 mL/min >=60 Estimated GFR by using Modified MDRD formula.Chronic kidney disease is defined as either kidney damageor GFR <60 mL/min/1.73 m2 for >3 months. CREATININE (test code = CREAT) 0.80 mg/dL 0.55-1.02 N Note change in reference range due to change in reagent. BUN/CREATININE RATIO (test code = BUN/CREA) 27.5 10-20 H CALCIUM (test code = CA) 8.8 mg/dL 8.5-10.1 N [id number] 10:37:00* Test Item Value Reference Range Interpretation Comments TROPONIN-I (test code = TROPI) <0.015 ng/mL 0-0.045 N PROTHROMBIN [id number] 10:25:00* Test Item Value Reference Range Interpretation Comments PROTHROMBIN TIME PATIENT (test code = PTP) 11.7 seconds 9.0-14.0 N INTERNATIONAL NORMAL RATIO (test code = INR) 1.0 0.8-1.2 N The therapeutic range for oral anticoagulant therapy formost indications is an international normalized ratio (INR)of between 2.0 and 3.0. The recommended therapeutic INRrange for various clinical situations is listed below: Clinical Situation INR range Pulmonary e mbolism treatment (2.0-3.0)Venous thrombosis treatmentVenous thrombosis prophylaxis (high risk surgery)Prevention of systemic embolism from: Acute myocardial infarction Valvular heart disease Atrial fibrillation Mechanical prosthetic heart valves (2.5-3.5) IS PATIENT ON ANTICOAGULANTS? NTHROMBOPLASTIN TIME [id number] 10:25:00* Test Item Value Reference Range Interpretation Comments THROMBOPLASTIN TIME PARTIAL (test code = PTT) 22.9 seconds 23.0-37. 0 L IS PATIENT ON ANTICOAGULANTS? NBASIC METABOLIC [id number] 10:22:00* Test Item Value Reference Range Interpretation Comments SODIUM (test code = NA) 139 mmol/L 136-145 N POTASSIUM (test code = K) 3.9 mmol/L 3.5-5.1 N CHLORIDE (test code = CL) 109.0 mmol/L 98-107 H CARBON DIOXIDE (test code = CO2) mmol/L 21-32 ANION GAP (test code = GAP) 10-20 GLUCOSE (test code = GLU) mg/dL 74-106 BLOOD UREA NITROGEN (test code = BUN) mg/dL 7-18 GLOMERULAR FILTRATION RATE (test code = GFR) mL/min >=60 CREATININE (test code = CREAT) mg/dL 0.55-1.02 BUN/CREATININE RATIO (test code = BUN/CREA) 10-20 CALCIUM (test code = CA) mg/dL 8.5-10.1 [id number] 10:22:00* Test Item Value Reference Range Interpretation Comments TROPONIN-I (test code = TROPI) ng/mL 0-0.045 CBC W/O [id number] 10:15:00* Test Item Value Reference Range Interpretation Comments WHITE BLOOD CELL (test code = WBC) 5.5 K/mm3 4.5-12.5 N RED BLOOD CELL (test code = RBC) 4.22 mill/mm3 3.7-5.2 N HEMOGLOBIN (test code = HGB) 9.5 gram/dL 11.5-15.5 L HEMATOCRIT (test code = HCT) 31.4 % 36.0-46.0 L MEAN CELL VOLUME (test code = MCV) 74.4 fL 80-98 L MEAN CELL HGB (test code = MCH) 22.5 picogram 27.0-33.0 L MEAN CELL HGB CONCETRATION (test code = MCHC) 30.3 gram/dL 33.0-36. 0 L RED CELL DISTRIBUTION WIDTH (test code = RDW) 16.7 % 11.6-16. 2 H PLATELET COUNT (test code = PLT) 131 K/mm3 150-450 L MEAN PLATELET VOLUME (test code = MPV) 10.0 fL 6.7-11.0 N - XR CHEST 1 [id number] 10:04:00 FAX: Hardeep Douglas [phone] [place]: [address]: [facility] FAX: Benjamin Francis MD [phone] Name: KALYANI TALAVERA [facility] : 1955 Age/S: 64/F [address] [facility] Unit #: [id number] Loc: [place] [address] Phys: Hardeep Ann MD Acct: [id number] Dis Date: Status: REG ER PHONE #: [phone] Exam Date: 11/20/2019928 FAX #: [phone] Reason: Shortness of Breath EXAMS: CPT CODE: [id number] XR CHEST 1 V [id number] REASON FOR EXAM: Shortness of Breath Exam Order Date: 11/20/2019 9:23 AM Ordering M.DMayi: Hardeep Ann MD PROCEDURE: - XR CHEST 1 V COMPARISON: Chest x-ray October 20, 2019 FINDINGS: Right hemidiaphragm elevation with subsegmental atelectasis in the right lung base and crowding of the right bronchovascular vessels appear similar to the prior exam. There also lor ears to be subsegmental atelectasis in the left lung base. C ardiomediastinal silhouette is prominent but stable in size. The mediastin al contours are within normal limits. No obvious acute musculoskel etal abnormality. The visualized upper abdomen is within normal li mits. IMPRESSION: Bibasilar subsegmental atelect asis and chronic elevation of the right hemidiaphragm. Location: [facility] at 1004 Reported and signed by: Dago Goodson MD CC: Hardeep Ann MD; Benjamin Masters Technologist: SUSAN HAMMONDS JR Trnscrd Date/Time/By: 0 (1004) : By: [email or web address] Orig Print D/T: S: 11/20/2019 (1007) PAGE 1 Signed Report BASIC METABOLIC [id number] 15:36:00* Test Item Value Reference Range Interpretation Comments SODIUM (test code = NA) 136 mmol/L 136-145 N POTASSIUM (test code = K) 5.2 mmol/L 3.5-5.1 H CHLORIDE (test code = CL) 101.0 mmol/L 98-107 N CARBON DIOXIDE (test code = CO2) 24.0 mmol/L 21-32 N ANION GAP (test code = GAP) 16.2 10-20 N GLUCOSE (test code = GLU) 277 mg/dL 74-106 H BLOOD UREA NITROGEN (test code = BUN) 34 mg/dL 7-18 H GLOMERULAR FILTRATION RATE (test code = GFR) 45 mL/min >=60 Estimated GFR by using Modified MDRD formula.Chronic kidney disease is defined as either kidney damageor GFR <60 mL/min/1.73 m2 for >3 months. CREATININE (test code = CREAT) 1.20 mg/dL 0.55-1.02 H Note change in reference range due to change in reagent. BUN/CREATININE RATIO (test code = BUN/CREA) 28.3 10-20 H CALCIUM (test code = CA) 8.5 mg/dL 8.5-10.1 N BASIC METABOLIC [id number] 15:32:00* Test Item Value Reference Range Interpretation Comments SODIUM (test code = NA) 136 mmol/L 136-145 N POTASSIUM (test code = K) 5.2 mmol/L 3.5-5.1 H CHLORIDE (test code = CL) 101.0 mmol/L 98-107 N CARBON DIOXIDE (test code = CO2) mmol/L 21-32 ANION GAP (test code = GAP) 10-20 GLUCOSE (test code = GLU) mg/dL 74-106 BLOOD UREA NITROGEN (test code = BUN) mg/dL 7-18 GLOMERULAR FILTRATION RATE (test code = GFR) mL/min >=60 CREATININE (test code = CREAT) mg/dL 0.55-1.02 BUN/CREATININE RATIO (test code = BUN/CREA) 10-20 CALCIUM (test code = CA) mg/dL 8.5-10.1 [id number] 11:56:00* Test Item Value Reference Range Interpretation Comments GLUBED (test code = GLUBED) 268 mg/dL 74-106 H Performed by certified glue spreading machine operator at [facility] [id number] 08:34:00* Test Item Value Reference Range Interpretation Comments GLUBED (test code = GLUBED) 213 mg/dL 74-106 H Performed by certified glue spreading machine operator at [facility] COMPREHENSIVE METABOLIC [id number] 06:54:00* Test Item Value Reference Range Interpretation Comments SODIUM (test code = NA) 137 mmol/L 136-145 N POTASSIUM (test code = K) 4.1 mmol/L 3.5-5.1 N CHLORIDE (test code = CL) 101.0 mmol/L 98-107 N CARBON DIOXIDE (test code = CO2) 29.0 mmol/L 21-32 N ANION GAP (test code = GAP) 11.1 10-20 N GLUCOSE (test code = GLU) 208 mg/dL 74-106 H BLOOD UREA NITROGEN (test code = BUN) 41 mg/dL 7-18 H RESULT VERIFIED BY REPEAT ANALYSIS GLOMERULAR FILTRATION RATE (test code = GFR) > 60 mL/min >=60 Estimated GFR by using Modified MDRD formula.Chronic kidney disease is defined as either kidney damageor GFR <60 mL/min/1.73 m2 for >3 months. CREATININE (test code = CREAT) 0.90 mg/dL 0.55-1.02 N Note change in reference range due to change in reagent. BUN/CREATININE RATIO (test code = BUN/CREA) 45.6 10-20 H TOTAL PROTEIN (test code = PROT) 6.8 gram/dL 6.4-8.2 N ALBUMIN (test code = ALB) 3.1 g/dL 3.4-5.0 L GLOBULIN (test code = GLOB) 3.7 gram/dL 2.7-4.2 N ALBUMIN/GLOBULIN RATIO (test code = A/G) 0.8 0.75-1.50 N CALCIUM (test code = CA) 8.7 mg/dL 8.5-10.1 N BILIRUBIN TOTAL (test code = BILT) 0.20 mg/dL 0.0-1.0 N SGOT/AST (test code = AST) 10 IUnit/L 15-37 L SGPT/ALT (test code = ALT) 23 IUnit/L 12-78 N ALKALINE PHOSPHATASE TOTAL (test code = ALKP) 104 IUnit/L 45-117 N Note change in reference range due to change in reagent. COMPREHENSIVE METABOLIC [id number] 06:39:00* Test Item Value Reference Range Interpretation Comments SODIUM (test code = NA) 137 mmol/L 136-145 N POTASSIUM (test code = K) 4.1 mmol/L 3.5-5.1 N CHLORIDE (test code = CL) 101.0 mmol/L 98-107 N CARBON DIOXIDE (test code = CO2) mmol/L 21-32 ANION GAP (test code = GAP) 10-20 GLUCOSE (test code = GLU) mg/dL 74-106 BLOOD UREA NITROGEN (test code = BUN) mg/dL 7-18 GLOMERULAR FILTRATION RATE (test code = GFR) mL/min >=60 CREATININE (test code = CREAT) mg/dL 0.55-1.02 BUN/CREATININE RATIO (test code = BUN/CREA) 10-20 TOTAL PROTEIN (test code = PROT) gram/dL 6.4-8.2 ALBUMIN (test code = ALB) g/dL 3.4-5.0 GLOBULIN (test code = GLOB) gram/dL 2.7-4.2 ALBUMIN/GLOBULIN RATIO (test code = A/G) 0.75-1.50 CALCIUM (test code = CA) mg/dL 8.5-10.1 BILIRUBIN TOTAL (test code = BILT) mg/dL 0.0-1.0 SGOT/AST (test code = AST) IUnit/L 15-37 SGPT/ALT (test code = ALT) IUnit/L 12-78 ALKALINE PHOSPHATASE TOTAL (test code = ALKP) IUnit/L 45-117 [id number] 19:31:00* Test Item Value Reference Range Interpretation Comments GLUBED (test code = GLUBED) 307 mg/dL 74-106 H Performed by certified glue spreading machine operator at [facility] BASIC METABOLIC [id number] 16:35:00* Test Item Value Reference Range Interpretation Comments SODIUM (test code = NA) 138 mmol/L 136-145 N POTASSIUM (test code = K) 4.5 mmol/L 3.5-5.1 N CHLORIDE (test code = CL) 99.0 mmol/L 98-107 N CARBON DIOXIDE (test code = CO2) 32.0 mmol/L 21-32 N ANION GAP (test code = GAP) 11.5 10-20 N GLUCOSE (test code = GLU) 131 mg/dL 74-106 H BLOOD UREA NITROGEN (test code = BUN) 56 mg/dL 7-18 H GLOMERULAR FILTRATION RATE (test code = GFR) 38 mL/min >=60 Estimated GFR by using Modified MDRD formula.Chronic kidney disease is defined as either kidney damageor GFR <60 mL/min/1.73 m2 for >3 months. CREATININE (test code = CREAT) 1.40 mg/dL 0.55-1.02 H Note change in reference range due to change in reagent. BUN/CREATININE RATIO (test code = BUN/CREA) 40.0 10-20 H CALCIUM (test code = CA) 8.9 mg/dL 8.5-10.1 N BASIC METABOLIC [id number] 16:30:00* Test Item Value Reference Range Interpretation Comments SODIUM (test code = NA) 138 mmol/L 136-145 N POTASSIUM (test code = K) 4.5 mmol/L 3.5-5.1 N CHLORIDE (test code = CL) 99.0 mmol/L 98-107 N CARBON DIOXIDE (test code = CO2) mmol/L 21-32 ANION GAP (test code = GAP) 10-20 GLUCOSE (test code = GLU) mg/dL 74-106 BLOOD UREA NITROGEN (test code = BUN) mg/dL 7-18 GLOMERULAR FILTRATION RATE (test code = GFR) mL/min >=60 CREATININE (test code = CREAT) mg/dL 0.55-1.02 BUN/CREATININE RATIO (test code = BUN/CREA) 10-20 CALCIUM (test code = CA) mg/dL 8.5-10.1 [id number] 15:31:00* Test Item Value Reference Range Interpretation Comments GLUBED (test code = GLUBED) 155 mg/dL 74-106 H Performed by certified glue spreading machine operator at [facility] [id number] 11:44:00* Test Item Value Reference Range Interpretation Comments GLUBED (test code = GLUBED) 180 mg/dL 74-106 H Performed by certified glue spreading machine operator at [facility] [id number] 08:05:00* Test Item Value Reference Range Interpretation Comments GLUBED (test code = GLUBED) 236 mg/dL 74-106 H Performed by certified glue spreading machine operator at [facility] COMPREHENSIVE METABOLIC [id number] 04:48:00* Test Item Value Reference Range Interpretation Comments SODIUM (test code = NA) 136 mmol/L 136-145 POTASSIUM (test code = K) 4.4 mmol/L 3.5-5.1 N CHLORIDE (test code = CL) 96.0 mmol/L 98-107 L CARBON DIOXIDE (test code = CO2) 31.0 mmol/L 21-32 N ANION GAP (test code = GAP) 13.4 10-20 N GLUCOSE (test code = GLU) 290 mg/dL 74-106 H BLOOD UREA NITROGEN (test code = BUN) 69 mg/dL 7-18 H GLOMERULAR FILTRATION RATE (test code = GFR) 28 mL/min >=60 Estimated GFR by using Modified MDRD formula.Chronic kidney disease is defined as either kidney damageor GFR <60 mL/min/1.73 m2 for >3 months. CREATININE (test code = CREAT) 1.80 mg/dL 0.55-1.02 H Note change in reference range due to change in reagent. BUN/CREATININE RATIO (test code = BUN/CREA) 38.3 10-20 H TOTAL PROTEIN (test code = PROT) 6.6 gram/dL 6.4-8.2 N ALBUMIN (test code = ALB) 3.0 g/dL 3.4-5.0 L GLOBULIN (test code = GLOB) 3.6 gram/dL 2.7-4.2 N ALBUMIN/GLOBULIN RATIO (test code = A/G) 0.8 0.75-1.50 N CALCIUM (test code = CA) 8.6 mg/dL 8.5-10.1 N BILIRUBIN TOTAL (test code = BILT) 0.30 mg/dL 0.0-1.0 N SGOT/AST (test code = AST) 13 IUnit/L 15-37 L SGPT/ALT (test code = ALT) 23 IUnit/L 12-78 N ALKALINE PHOSPHATASE TOTAL (test code = ALKP) 102 IUnit/L 45-117 N Note change in reference range due to change in reagent. COMPREHENSIVE METABOLIC [id number] 04:35:00* Test Item Value Reference Range Interpretation Comments SODIUM (test code = NA) 136 mmol/L 136-145 POTASSIUM (test code = K) 4.4 mmol/L 3.5-5.1 N CHLORIDE (test code = CL) 96.0 mmol/L 98-107 L CARBON DIOXIDE (test code = CO2) mmol/L 21-32 ANION GAP (test code = GAP) 10-20 GLUCOSE (test code = GLU) mg/dL 74-106 BLOOD UREA NITROGEN (test code = BUN) mg/dL 7-18 GLOMERULAR FILTRATION RATE (test code = GFR) mL/min >=60 CREATININE (test code = CREAT) mg/dL 0.55-1.02 BUN/CREATININE RATIO (test code = BUN/CREA) 10-20 TOTAL PROTEIN (test code = PROT) gram/dL 6.4-8.2 ALBUMIN (test code = ALB) g/dL 3.4-5.0 GLOBULIN (test code = GLOB) gram/dL 2.7-4.2 ALBUMIN/GLOBULIN RATIO (test code = A/G) 0.75-1.50 CALCIUM (test code = CA) mg/dL 8.5-10.1 BILIRUBIN TOTAL (test code = BILT) mg/dL 0.0-1.0 SGOT/AST (test code = AST) IUnit/L 15-37 SGPT/ALT (test code = ALT) IUnit/L 12-78 ALKALINE PHOSPHATASE TOTAL (test code = ALKP) IUnit/L 45-117 [id number] 20:09:00* Test Item Value Reference Range Interpretation Comments GLUBED (test code = GLUBED) 126 mg/dL 74-106 H Performed by certified glue spreading machine operator at [facility] [id number] 15:38:00* Test Item Value Reference Range Interpretation Comments GLUBED (test code = GLUBED) 241 mg/dL 74-106 H Performed by certified glue spreading machine operator at [facility] [id number] 11:39:00* Test Item Value Reference Range Interpretation Comments GLUBED (test code = GLUBED) 406 mg/dL 74-106 H Performed by certified glue spreading machine operator at [facility] [id number] 07:56:00* Test Item Value Reference Range Interpretation Comments GLUBED (test code = GLUBED) 318 mg/dL 74-106 H Performed by certified glue spreading machine operator at [facility] COMPREHENSIVE METABOLIC [id number] 04:33:00* Test Item Value Reference Range Interpretation Comments SODIUM (test code = NA) 129 mmol/L 136-145 L POTASSIUM (test code = K) 4.3 mmol/L 3.5-5.1 N CHLORIDE (test code = CL) 94.0 mmol/L 98-107 L CARBON DIOXIDE (test code = CO2) 24.0 mmol/L 21-32 N ANION GAP (test code = GAP) 15.3 10-20 N GLUCOSE (test code = GLU) 354 mg/dL 74-106 H BLOOD UREA NITROGEN (test code = BUN) 59 mg/dL 7-18 H GLOMERULAR FILTRATION RATE (test code = GFR) 21 mL/min >=60 Estimated GFR by using Modified MDRD formula.Chronic kidney disease is defined as either kidney damageor GFR <60 mL/min/1.73 m2 for >3 months. CREATININE (test code = CREAT) 2.30 mg/dL 0.55-1.02 H Note change in reference range due to change in reagent. BUN/CREATININE RATIO (test code = BUN/CREA) 25.7 10-20 H TOTAL PROTEIN (test code = PROT) 6.6 gram/dL 6.4-8.2 N ALBUMIN (test code = ALB) 2.8 g/dL 3.4-5.0 L GLOBULIN (test code = GLOB) 3.8 gram/dL 2.7-4.2 N ALBUMIN/GLOBULIN RATIO (test code = A/G) 0.7 0.75-1.50 L CALCIUM (test code = CA) 8.5 mg/dL 8.5-10.1 N BILIRUBIN TOTAL (test code = BILT) 0.40 mg/dL 0.0-1.0 N SGOT/AST (test code = AST) 19 IUnit/L 15-37 N SGPT/ALT (test code = ALT) 24 IUnit/L 12-78 N ALKALINE PHOSPHATASE TOTAL (test code = ALKP) 105 IUnit/L 45-117 N Note change in reference range due to change in reagent. COMPREHENSIVE METABOLIC [id number] 04:24:00* Test Item Value Reference Range Interpretation Comments SODIUM (test code = NA) 129 mmol/L 136-145 L POTASSIUM (test code = K) 4.3 mmol/L 3.5-5.1 N CHLORIDE (test code = CL) 94.0 mmol/L 98-107 L CARBON DIOXIDE (test code = CO2) mmol/L 21-32 ANION GAP (test code = GAP) 10-20 GLUCOSE (test code = GLU) mg/dL 74-106 BLOOD UREA NITROGEN (test code = BUN) mg/dL 7-18 GLOMERULAR FILTRATION RATE (test code = GFR) mL/min >=60 CREATININE (test code = CREAT) mg/dL 0.55-1.02 BUN/CREATININE RATIO (test code = BUN/CREA) 10-20 TOTAL PROTEIN (test code = PROT) gram/dL 6.4-8.2 ALBUMIN (test code = ALB) g/dL 3.4-5.0 GLOBULIN (test code = GLOB) gram/dL 2.7-4.2 ALBUMIN/GLOBULIN RATIO (test code = A/G) 0.75-1.50 CALCIUM (test code = CA) mg/dL 8.5-10.1 BILIRUBIN TOTAL (test code = BILT) mg/dL 0.0-1.0 SGOT/AST (test code = AST) IUnit/L 15-37 SGPT/ALT (test code = ALT) IUnit/L 12-78 ALKALINE PHOSPHATASE TOTAL (test code = ALKP) IUnit/L 45-117 [id number] 22:02:00* Test Item Value Reference Range Interpretation Comments GLUBED (test code = GLUBED) 108 mg/dL 74-106 H Performed by certified glue spreading machine operator at [facility] [id number] 19:58:00* Test Item Value Reference Range Interpretation Comments GLUBED (test code = GLUBED) 117 mg/dL 74-106 H Performed by certified glue spreading machine operator at [facility] [id number] 11:46:00* Test Item Value Reference Range Interpretation Comments GLUBED (test code = GLUBED) 277 mg/dL 74-106 H Performed by certified glue spreading machine operator at [facility] [id number] 11:46:00* Test Item Value Reference Range Interpretation Comments GLUBED (test code = GLUBED) 286 mg/dL 74-106 H Performed by certified glue spreading machine operator at [facility] [id number] 04:37:00* Test Item Value Reference Range Interpretation Comments FERRITIN (test code = DESI) 14 ng/mL 8-388 N FE W/TOTAL IRON BINDING CAP.2019-10-21 04:28:00* Test Item Value Reference Range Interpretation Comments SERUM IRON (test code = IRON) 65 ug/dL 50-175 N TOTAL IRON BINDING CAPACITY (test code = TIBC) 532 mcg/dL 250-450 H IRON SATURATION (test code = FESAT) 12.22 % 13-45 L [id number] 03:52:00* Test Item Value Reference Range Interpretation Comments GLUBED (test code = GLUBED) 287 mg/dL 74-106 H [facility] glue spreading [facility] [id number] 20:27:00* Test Item Value Reference Range Interpretation Comments GLUBED (test code = GLUBED) 132 mg/dL 74-106 H [facility] certified glue spreading machine [facility] [id number] 17:34:00* Test Item Value Reference Range Interpretation Comments GLUBED (test code = GLUBED) 167 mg/dL 74-106 H Performed by certified glue spreading machine operator at [facility] [id number] 12:06:00* Test Item Value Reference Range Interpretation Comments GLUBED (test code = GLUBED) 271 mg/dL 74-106 H Performed by certified glue spreading machine operator at [facility] - XR CHEST 1 [id number] 08:35:00 FAX: Rigo Mccormick MD [phone] [place]: St: [facility] FAX: Benjamin Francis MD [phone] Name: KALYANI TALAVERA [facility] : 1955 Age/S: 64/F [address] [facility] Unit #: [id number] Loc: V.4006 [place] [address] Phys: Rigo Alexander MD Acct: [id number] Dis Date: Status: ADM IN PHONE #: [phone] Exam Date: 10/20/2019 08 FAX #: [phone] Reason: chf EXAMS: CPT CODE: [id number] XR CHEST 1 V [id number] CLINICAL HISTORY: chf TECHNIQUE: AP chest x-ray COMPARISON: 10/18/19 IMPRESSION: No significant interval change. Low lung volumes with bibasilar subsegmental atelectasis. No airspace consolidation or pleural effusion. Elevated right hemidiaphragm. Cardiomegaly. Mediastinal silhouette is unremarkable. LOCATION: [facility] Dave ctronically Signed by Kary Camacho D.O. on 10/20/2019 at 0835 Reported and signed by: Kary Camacho D.O. CC: Rigo Alexander MD; Benjamin Masters Technologist: TAWANNA HURTADO RT(R) Trnscrd Date/Time/By: 10/20/2019 (0860) : By: aniyah [email or web address] Orig Print D/T: S: 10/20/2019 (6820) P AGE 2 Signed Report GLUBED 2019-10-20 08:30:00* Test Item Value Reference Range Interpretation Comments GLUBED (test code = GLUBED) 234 mg/dL 74-106 H Performed by certified glue spreading machine operator at [facility] CBC W/AUTO [id number] 05:46:00* Test Item Value Reference Range Interpretation Comments WHITE BLOOD CELL (test code = WBC) 6.8 K/mm3 4.5-12.5 N RED BLOOD CELL (test code = RBC) 5.49 mill/mm3 3.7-5.2 H HEMOGLOBIN (test code = HGB) 12.5 gram/dL 11.5-15.5 HEMATOCRIT (test code = HCT) 42.3 % 36.0-46.0 N MEAN CELL VOLUME (test code = MCV) 77.0 fL 80-98 L MEAN CELL HGB (test code = MCH) 22.8 picogram 27.0-33.0 L MEAN CELL HGB CONCETRATION (test code = MCHC) 29.6 gram/dL 33.0-36. 0 L RED CELL DISTRIBUTION WIDTH (test code = RDW) 17.3 % 11.6-16. 2 H RED CELL DISTRIBUTION WIDTH SD (test code = RDW-SD) 45.1 fL 37 .0-51.0 N PLATELET COUNT (test code = PLT) 193 K/mm3 150-450 N MEAN PLATELET VOLUME (test code = MPV) 11.0 fL 6.7-11.0 N NEUTROPHIL % (test code = NT%) 65.9 % 39.0-69.0 N IMMATURE GRANULOCYTE % (test code = IG%) 0.6 % 0.0-5.0 N LYMPHOCYTE % (test code = LY%) 22.6 % 25.0-55.0 L MONOCYTE % (test code = MO%) 6.2 % 0.0-10.0 N EOSINOPHIL % (test code = EO%) 3.5 % 0.0-5.0 N BASOPHIL % (test code = BA%) 1.2 % 0.0-1.0 H NUCLEATED RBC % (test code = NRBC%) 0.0 % 0-0 N NEUTROPHIL # (test code = NT#) 4.46 K/mm3 1.8-7.7 N IMMATURE GRANULOCYTE # (test code = IG#) 0.04 x10 3/uL 0-0.03 H LYMPHOCYTE # (test code = LY#) 1.53 K/mm3 1.0-5.0 N MONOCYTE # (test code = MO#) 0.42 K/mm3 0-0.8 N EOSINOPHIL # (test code = EO#) 0.24 K/mm3 0.0-0.5 N BASOPHIL # (test code = BA#) 0.08 K/mm3 0.0-0.2 N NUCLEATED RBC # (test code = NRBC#) 0.00 K/mm3 0.0-0.1 N MANUAL DIFF REQUIRED (test code = MDIFF) NO, ONLY SCAN NEEDED DIFFERENTIAL [id number] 05:46:00* Test Item Value Reference Range Interpretation Comments STAIN ACCEPTABILITY (test code = STN ACCEPTABLE) STAIN ACCEPTABLE POLYCHROMASIA (test code = POLC) 1+ POIKILOCYTOSIS (test code = POIK) 1+ ANISOCYTOSIS (test code = ANISO) 2+ MICROCYTOSIS (test code = MICR) 2+ OVALOCYTES (test code = OVAL) 1+ MORPHOLOGY COMMENT (test code = MOC) TEST NOT PERFORMED PLATELET ESTIMATE (test code = PLTEST) ADEQUATE PLATELET MORPHOLOGY (test code = PLTMORPH) NORMAL BASIC METABOLIC [id number] 05:36:00* Test Item Value Reference Range Interpretation Comments SODIUM (test code = NA) 137 mmol/L 136-145 N POTASSIUM (test code = K) 4.1 mmol/L 3.5-5.1 N CHLORIDE (test code = CL) 95.0 mmol/L 98-107 L CARBON DIOXIDE (test code = CO2) 32.0 mmol/L 21-32 N ANION GAP (test code = GAP) 14.1 10-20 N GLUCOSE (test code = GLU) 255 mg/dL 74-106 H BLOOD UREA NITROGEN (test code = BUN) 28 mg/dL 7-18 H GLOMERULAR FILTRATION RATE (test code = GFR) 50 mL/min >=60 Estimated GFR by using Modified MDRD formula.Chronic kidney disease is defined as either kidney damageor GFR <60 mL/min/1.73 m2 for >3 months. CREATININE (test code = CREAT) 1.10 mg/dL 0.55-1.02 H Note change in reference range due to change in reagent. BUN/CREATININE RATIO (test code = BUN/CREA) 25.5 10-20 H CALCIUM (test code = CA) 9.4 mg/dL 8.5-10.1 N BASIC METABOLIC [id number] 05:30:00* Test Item Value Reference Range Interpretation Comments SODIUM (test code = NA) 137 mmol/L 136-145 N POTASSIUM (test code = K) 4.1 mmol/L 3.5-5.1 N CHLORIDE (test code = CL) 95.0 mmol/L 98-107 L CARBON DIOXIDE (test code = CO2) mmol/L 21-32 ANION GAP (test code = GAP) 10-20 GLUCOSE (test code = GLU) mg/dL 74-106 BLOOD UREA NITROGEN (test code = BUN) mg/dL 7-18 GLOMERULAR FILTRATION RATE (test code = GFR) mL/min >=60 CREATININE (test code = CREAT) mg/dL 0.55-1.02 BUN/CREATININE RATIO (test code = BUN/CREA) 10-20 CALCIUM (test code = CA) mg/dL 8.5-10.1 CBC W/AUTO [id number] 05:11:00* Test Item Value Reference Range Interpretation Comments WHITE BLOOD CELL (test code = WBC) 6.8 K/mm3 4.5-12.5 N RED BLOOD CELL (test code = RBC) 5.49 mill/mm3 3.7-5.2 H HEMOGLOBIN (test code = HGB) 12.5 gram/dL 11.5-15.5 HEMATOCRIT (test code = HCT) 42.3 % 36.0-46.0 N MEAN CELL VOLUME (test code = MCV) 77.0 fL 80-98 L MEAN CELL HGB (test code = MCH) 22.8 picogram 27.0-33.0 L MEAN CELL HGB CONCETRATION (test code = MCHC) 29.6 gram/dL 33.0-36. 0 L RED CELL DISTRIBUTION WIDTH (test code = RDW) 17.3 % 11.6-16. 2 H RED CELL DISTRIBUTION WIDTH SD (test code = RDW-SD) 45.1 fL 37 .0-51.0 N PLATELET COUNT (test code = PLT) 193 K/mm3 150-450 N MEAN PLATELET VOLUME (test code = MPV) 11.0 fL 6.7-11.0 N NEUTROPHIL % (test code = NT%) 65.9 % 39.0-69.0 N IMMATURE GRANULOCYTE % (test code = IG%) 0.6 % 0.0-5.0 N LYMPHOCYTE % (test code = LY%) 22.6 % 25.0-55.0 L MONOCYTE % (test code = MO%) 6.2 % 0.0-10.0 N EOSINOPHIL % (test code = EO%) 3.5 % 0.0-5.0 N BASOPHIL % (test code = BA%) 1.2 % 0.0-1.0 H NUCLEATED RBC % (test code = NRBC%) 0.0 % 0-0 N NEUTROPHIL # (test code = NT#) 4.46 K/mm3 1.8-7.7 N IMMATURE GRANULOCYTE # (test code = IG#) 0.04 x10 3/uL 0-0.03 H LYMPHOCYTE # (test code = LY#) 1.53 K/mm3 1.0-5.0 N MONOCYTE # (test code = MO#) 0.42 K/mm3 0-0.8 N EOSINOPHIL # (test code = EO#) 0.24 K/mm3 0.0-0.5 N BASOPHIL # (test code = BA#) 0.08 K/mm3 0.0-0.2 N NUCLEATED RBC # (test code = NRBC#) 0.00 K/mm3 0.0-0.1 N MANUAL DIFF REQUIRED (test code = MDIFF) NO, ONLY SCAN NEEDED DIFFERENTIAL [id number] 05:11:00* Test Item Value Reference Range Interpretation Comments STAIN ACCEPTABILITY (test code = STN ACCEPTABLE) CABOT RINGS (test code = CAB) MORPHOLOGY COMMENT (test code = MOC) PLATELET ESTIMATE (test code = PLTEST) PLATELET MORPHOLOGY (test code = PLTMORPH) CBC W/AUTO [id number] 05:11:00* Test Item Value Reference Range Interpretation Comments WHITE BLOOD CELL (test code = WBC) 6.8 K/mm3 4.5-12.5 N RED BLOOD CELL (test code = RBC) 5.49 mill/mm3 3.7-5.2 H HEMOGLOBIN (test code = HGB) 12.5 gram/dL 11.5-15.5 HEMATOCRIT (test code = HCT) 42.3 % 36.0-46.0 N MEAN CELL VOLUME (test code = MCV) 77.0 fL 80-98 L MEAN CELL HGB (test code = MCH) 22.8 picogram 27.0-33.0 L MEAN CELL HGB CONCETRATION (test code = MCHC) 29.6 gram/dL 33.0-36. 0 L RED CELL DISTRIBUTION WIDTH (test code = RDW) 17.3 % 11.6-16. 2 H RED CELL DISTRIBUTION WIDTH SD (test code = RDW-SD) 45.1 fL 37 .0-51.0 N PLATELET COUNT (test code = PLT) 193 K/mm3 150-450 N MEAN PLATELET VOLUME (test code = MPV) 11.0 fL 6.7-11.0 N NEUTROPHIL % (test code = NT%) 65.9 % 39.0-69.0 N IMMATURE GRANULOCYTE % (test code = IG%) 0.6 % 0.0-5.0 N LYMPHOCYTE % (test code = LY%) 22.6 % 25.0-55.0 L MONOCYTE % (test code = MO%) 6.2 % 0.0-10.0 N EOSINOPHIL % (test code = EO%) 3.5 % 0.0-5.0 N BASOPHIL % (test code = BA%) 1.2 % 0.0-1.0 H NUCLEATED RBC % (test code = NRBC%) 0.0 % 0-0 N NEUTROPHIL # (test code = NT#) 4.46 K/mm3 1.8-7.7 N IMMATURE GRANULOCYTE # (test code = IG#) 0.04 x10 3/uL 0-0.03 H LYMPHOCYTE # (test code = LY#) 1.53 K/mm3 1.0-5.0 N MONOCYTE # (test code = MO#) 0.42 K/mm3 0-0.8 N EOSINOPHIL # (test code = EO#) 0.24 K/mm3 0.0-0.5 N BASOPHIL # (test code = BA#) 0.08 K/mm3 0.0-0.2 N NUCLEATED RBC # (test code = NRBC#) 0.00 K/mm3 0.0-0.1 N MANUAL DIFF REQUIRED (test code = MDIFF) NO, ONLY SCAN NEEDED DIFFERENTIAL [id number] 05:11:00* Test Item Value Reference Range Interpretation Comments STAIN ACCEPTABILITY (test code = STN ACCEPTABLE) CABOT RINGS (test code = CAB) MORPHOLOGY COMMENT (test code = MOC) PLATELET ESTIMATE (test code = PLTEST) PLATELET MORPHOLOGY (test code = PLTMORPH) CBC W/AUTO [id number] 05:11:00* Test Item Value Reference Range Interpretation Comments WHITE BLOOD CELL (test code = WBC) 6.8 K/mm3 4.5-12.5 N RED BLOOD CELL (test code = RBC) 5.49 mill/mm3 3.7-5.2 H HEMOGLOBIN (test code = HGB) 12.5 gram/dL 11.5-15.5 HEMATOCRIT (test code = HCT) 42.3 % 36.0-46.0 N MEAN CELL VOLUME (test code = MCV) 77.0 fL 80-98 L MEAN CELL HGB (test code = MCH) 22.8 picogram 27.0-33.0 L MEAN CELL HGB CONCETRATION (test code = MCHC) 29.6 gram/dL 33.0-36. 0 L RED CELL DISTRIBUTION WIDTH (test code = RDW) 17.3 % 11.6-16. 2 H RED CELL DISTRIBUTION WIDTH SD (test code = RDW-SD) 45.1 fL 37 .0-51.0 N PLATELET COUNT (test code = PLT) 193 K/mm3 150-450 N MEAN PLATELET VOLUME (test code = MPV) 11.0 fL 6.7-11.0 N NEUTROPHIL % (test code = NT%) 65.9 % 39.0-69.0 N IMMATURE GRANULOCYTE % (test code = IG%) 0.6 % 0.0-5.0 N LYMPHOCYTE % (test code = LY%) 22.6 % 25.0-55.0 L MONOCYTE % (test code = MO%) 6.2 % 0.0-10.0 N EOSINOPHIL % (test code = EO%) 3.5 % 0.0-5.0 N BASOPHIL % (test code = BA%) 1.2 % 0.0-1.0 H NUCLEATED RBC % (test code = NRBC%) 0.0 % 0-0 N NEUTROPHIL # (test code = NT#) 4.46 K/mm3 1.8-7.7 N IMMATURE GRANULOCYTE # (test code = IG#) 0.04 x10 3/uL 0-0.03 H LYMPHOCYTE # (test code = LY#) 1.53 K/mm3 1.0-5.0 N MONOCYTE # (test code = MO#) 0.42 K/mm3 0-0.8 N EOSINOPHIL # (test code = EO#) 0.24 K/mm3 0.0-0.5 N BASOPHIL # (test code = BA#) 0.08 K/mm3 0.0-0.2 N NUCLEATED RBC # (test code = NRBC#) 0.00 K/mm3 0.0-0.1 N MANUAL DIFF REQUIRED (test code = MDIFF) NO, ONLY SCAN NEEDED DIFFERENTIAL [id number] 05:11:00* Test Item Value Reference Range Interpretation Comments STAIN ACCEPTABILITY (test code = STN ACCEPTABLE) MORPHOLOGY COMMENT (test code = MOC) PLATELET ESTIMATE (test code = PLTEST) PLATELET MORPHOLOGY (test code = PLTMORPH) CBC W/AUTO [id number] 05:11:00* Test Item Value Reference Range Interpretation Comments WHITE BLOOD CELL (test code = WBC) 6.8 K/mm3 4.5-12.5 N RED BLOOD CELL (test code = RBC) 5.49 mill/mm3 3.7-5.2 H HEMOGLOBIN (test code = HGB) 12.5 gram/dL 11.5-15.5 HEMATOCRIT (test code = HCT) 42.3 % 36.0-46.0 N MEAN CELL VOLUME (test code = MCV) 77.0 fL 80-98 L MEAN CELL HGB (test code = MCH) 22.8 picogram 27.0-33.0 L MEAN CELL HGB CONCETRATION (test code = MCHC) 29.6 gram/dL 33.0-36. 0 L RED CELL DISTRIBUTION WIDTH (test code = RDW) 17.3 % 11.6-16. 2 H RED CELL DISTRIBUTION WIDTH SD (test code = RDW-SD) 45.1 fL 37 .0-51.0 N PLATELET COUNT (test code = PLT) 193 K/mm3 150-450 N MEAN PLATELET VOLUME (test code = MPV) 11.0 fL 6.7-11.0 N NEUTROPHIL % (test code = NT%) 65.9 % 39.0-69.0 N IMMATURE GRANULOCYTE % (test code = IG%) 0.6 % 0.0-5.0 N LYMPHOCYTE % (test code = LY%) 22.6 % 25.0-55.0 L MONOCYTE % (test code = MO%) 6.2 % 0.0-10.0 N EOSINOPHIL % (test code = EO%) 3.5 % 0.0-5.0 N BASOPHIL % (test code = BA%) 1.2 % 0.0-1.0 H NUCLEATED RBC % (test code = NRBC%) 0.0 % 0-0 N NEUTROPHIL # (test code = NT#) 4.46 K/mm3 1.8-7.7 N IMMATURE GRANULOCYTE # (test code = IG#) 0.04 x10 3/uL 0-0.03 H LYMPHOCYTE # (test code = LY#) 1.53 K/mm3 1.0-5.0 N MONOCYTE # (test code = MO#) 0.42 K/mm3 0-0.8 N EOSINOPHIL # (test code = EO#) 0.24 K/mm3 0.0-0.5 N BASOPHIL # (test code = BA#) 0.08 K/mm3 0.0-0.2 N NUCLEATED RBC # (test code = NRBC#) 0.00 K/mm3 0.0-0.1 N MANUAL DIFF REQUIRED (test code = MDIFF) NO, ONLY SCAN NEEDED DIFFERENTIAL [id number] 05:11:00* Test Item Value Reference Range Interpretation Comments STAIN ACCEPTABILITY (test code = STN ACCEPTABLE) CABOT RINGS (test code = CAB) MORPHOLOGY COMMENT (test code = MOC) PLATELET ESTIMATE (test code = PLTEST) PLATELET MORPHOLOGY (test code = PLTMORPH) [id number] 19:55:00* Test Item Value Reference Range Interpretation Comments GLUBED (test code = GLUBED) 245 mg/dL 74-106 H Performed by certified glue spreading machine operator at [facility] [id number] 17:25:00* Test Item Value Reference Range Interpretation Comments GLUBED (test code = GLUBED) 316 mg/dL 74-106 H Performed by certified glue spreading machine operator at [facility] [id number] 12:03:00* Test Item Value Reference Range Interpretation Comments GLUBED (test code = GLUBED) 266 mg/dL 74-106 H Performed by certified glue spreading machine operator at [facility] [id number] 11:55:00* Test Item Value Reference Range Interpretation Comments GLUBED (test code = GLUBED) 300 mg/dL 74-106 H Performed by certified glue spreading machine operator at [facility] COMPREHENSIVE METABOLIC [id number] 04:36:00* Test Item Value Reference Range Interpretation Comments SODIUM (test code = NA) 140 mmol/L 136-145 N POTASSIUM (test code = K) 3.2 mmol/L 3.5-5.1 L CHLORIDE (test code = CL) 100.0 mmol/L 98-107 N CARBON DIOXIDE (test code = CO2) 33.0 mmol/L 21-32 H ANION GAP (test code = GAP) 10.2 10-20 N GLUCOSE (test code = GLU) 256 mg/dL 74-106 H BLOOD UREA NITROGEN (test code = BUN) 28 mg/dL 7-18 H GLOMERULAR FILTRATION RATE (test code = GFR) > 60 mL/min >=60 Estimated GFR by using Modified MDRD formula.Chronic kidney disease is defined as either kidney damageor GFR <60 mL/min/1.73 m2 for >3 months. CREATININE (test code = CREAT) 0.90 mg/dL 0.55-1.02 N Note change in reference range due to change in reagent. BUN/CREATININE RATIO (test code = BUN/CREA) 31.1 10-20 H TOTAL PROTEIN (test code = PROT) 6.8 gram/dL 6.4-8.2 N ALBUMIN (test code = ALB) 3.1 g/dL 3.4-5.0 L GLOBULIN (test code = GLOB) 3.7 gram/dL 2.7-4.2 N ALBUMIN/GLOBULIN RATIO (test code = A/G) 0.8 0.75-1.50 N CALCIUM (test code = CA) 8.9 mg/dL 8.5-10.1 N BILIRUBIN TOTAL (test code = BILT) 0.30 mg/dL 0.0-1.0 N SGOT/AST (test code = AST) 10 IUnit/L 15-37 L SGPT/ALT (test code = ALT) 26 IUnit/L 12-78 N ALKALINE PHOSPHATASE TOTAL (test code = ALKP) 104 IUnit/L 45-117 N Note change in reference range due to change in reagent. COMPREHENSIVE METABOLIC [id number] 04:25:00* Test Item Value Reference Range Interpretation Comments SODIUM (test code = NA) 140 mmol/L 136-145 N POTASSIUM (test code = K) 3.2 mmol/L 3.5-5.1 L CHLORIDE (test code = CL) 100.0 mmol/L 98-107 N CARBON DIOXIDE (test code = CO2) mmol/L 21-32 ANION GAP (test code = GAP) 10-20 GLUCOSE (test code = GLU) mg/dL 74-106 BLOOD UREA NITROGEN (test code = BUN) mg/dL 7-18 GLOMERULAR FILTRATION RATE (test code = GFR) mL/min >=60 CREATININE (test code = CREAT) mg/dL 0.55-1.02 BUN/CREATININE RATIO (test code = BUN/CREA) 10-20 TOTAL PROTEIN (test code = PROT) gram/dL 6.4-8.2 ALBUMIN (test code = ALB) g/dL 3.4-5.0 GLOBULIN (test code = GLOB) gram/dL 2.7-4.2 ALBUMIN/GLOBULIN RATIO (test code = A/G) 0.75-1.50 CALCIUM (test code = CA) mg/dL 8.5-10.1 BILIRUBIN TOTAL (test code = BILT) mg/dL 0.0-1.0 SGOT/AST (test code = AST) IUnit/L 15-37 SGPT/ALT (test code = ALT) IUnit/L 12-78 ALKALINE PHOSPHATASE TOTAL (test code = ALKP) IUnit/L 45-117 [id number] 20:30:00* Test Item Value Reference Range Interpretation Comments GLUBED (test code = GLUBED) 202 mg/dL 74-106 H [facility] [id number] 18:41:00* Test Item Value Reference Range Interpretation Comments GLUBED (test code = GLUBED) 229 mg/dL 74-106 H Performed by certified glue spreading machine operator at [facility] [id number] 15:56:00* Test Item Value Reference Range Interpretation Comments GLUBED (test code = GLUBED) 271 mg/dL 74-106 H Performed by certified glue spreading machine operator at [facility] [id number] 15:00:00* Test Item Value Reference Range Interpretation Comments GLYCOSYLATED HEMOGLOBIN (HA1C) (test code = GLYHGB) 9.6 % HbA1 SUGGESTED DIAGNOSIS: HbA1C (%) Diabetic >6.4Prediabetes 5.7 - 6.4Normal <5.7 ESTIMATED AVERAGE GLUCOSE (test code = EAG) 229 MG/DL [id number] 11:26:00* Test Item Value Reference Range Interpretation Comments GLUBED (test code = GLUBED) 372 mg/dL 74-106 H Performed by certified glue spreading machine operator at [facility] - XR CHEST 1 [id number] 08:31:00 FAX: Rigo Mccormick MD [phone] [place]: [address]: ADM FAX: Benjamin Francis MD [phone] Name: KALYANI TALAVERA [facility] : 1955 Age/S: 64/F [address] [facility] Unit #: [id number] Loc: V.[address] [place] [address] Phys: Rigo Alexander MD Acct: [id number] Dis Date: Status: ADM IN PHONE #: [phone] Exam Date: 10/18/2019 0801 FAX #: [phone] Reason: chf EXAMS: CPT CODE: [id number] XR CHEST 1 V [id number] REASON FOR EXAM: chf Exam Order Date: 10/18/2019 5:00 AM Ordering M.DMayi: Rigo Alexander MD PROCEDURE: - XR CHEST 1 V COMPARISON: Chest x-ray and CT scan the previous morning FINDINGS: The lung volumes are diminished which causes crowding of the bronchovascular structures and widens the cardiomediastinal silhouette. There is also mild engorgement of the pulmonary vessels which is unchanged from the previous examination. Musculoskeletal structures are unchanged. The visualized upper abdomen is within normal limits. IMPRESSION: No acute cardiopulmonary process. Location: [facility] Electronic ally Signed by Dago Goodson MD on 10/18/2019 at 0831 Repo rted and signed by: Dago Goodson MD CC: iRgo Alexander MD; Benjamin Masters Technologist: SUSAN HAMMONDS JR Trnscrd Date/Time/By: 10/18/2019 (08) : By: [email or web address] Orig Print D/T: S: 10/18/2019 (0834) PAGE 1 Signed Report [id number] 07:40:00 * Test Item Value Reference Range Interpretation Comments GLUBED (test code = GLUBED) 391 mg/dL 74-106 H Performed by certified glue spreading machine operator at [facility] COMPREHENSIVE METABOLIC [id number] 04:54:00* Test Item Value Reference Range Interpretation Comments SODIUM (test code = NA) 138 mmol/L 136-145 N POTASSIUM (test code = K) 3.8 mmol/L 3.5-5.1 N CHLORIDE (test code = CL) 98.0 mmol/L 98-107 N CARBON DIOXIDE (test code = CO2) 34.0 mmol/L 21-32 H ANION GAP (test code = GAP) 9.8 10-20 L GLUCOSE (test code = GLU) 369 mg/dL 74-106 H BLOOD UREA NITROGEN (test code = BUN) 24 mg/dL 7-18 H GLOMERULAR FILTRATION RATE (test code = GFR) 56 mL/min >=60 Estimated GFR by using Modified MDRD formula.Chronic kidney disease is defined as either kidney damageor GFR <60 mL/min/1.73 m2 for >3 months. CREATININE (test code = CREAT) 1.00 mg/dL 0.55-1.02 N Note change in reference range due to change in reagent. BUN/CREATININE RATIO (test code = BUN/CREA) 24.0 10-20 H TOTAL PROTEIN (test code = PROT) 6.7 gram/dL 6.4-8.2 N ALBUMIN (test code = ALB) 3.0 g/dL 3.4-5.0 L GLOBULIN (test code = GLOB) 3.7 gram/dL 2.7-4.2 N ALBUMIN/GLOBULIN RATIO (test code = A/G) 0.8 0.75-1.50 N CALCIUM (test code = CA) 8.8 mg/dL 8.5-10.1 N BILIRUBIN TOTAL (test code = BILT) 0.30 mg/dL 0.0-1.0 N SGOT/AST (test code = AST) 11 IUnit/L 15-37 L SGPT/ALT (test code = ALT) 22 IUnit/L 12-78 N ALKALINE PHOSPHATASE TOTAL (test code = ALKP) 103 IUnit/L 45-117 N Note change in reference range due to change in reagent. [id number] 04:54:00* Test Item Value Reference Range Interpretation Comments MAGNESIUM (test code = MAG) 1.8 mg/dL 1.8-2.4 N COMPREHENSIVE METABOLIC [id number] 04:45:00* Test Item Value Reference Range Interpretation Comments SODIUM (test code = NA) 138 mmol/L 136-145 N POTASSIUM (test code = K) 3.8 mmol/L 3.5-5.1 N CHLORIDE (test code = CL) 98.0 mmol/L 98-107 N CARBON DIOXIDE (test code = CO2) mmol/L 21-32 ANION GAP (test code = GAP) 10-20 GLUCOSE (test code = GLU) mg/dL 74-106 BLOOD UREA NITROGEN (test code = BUN) mg/dL 7-18 GLOMERULAR FILTRATION RATE (test code = GFR) mL/min >=60 CREATININE (test code = CREAT) mg/dL 0.55-1.02 BUN/CREATININE RATIO (test code = BUN/CREA) 10-20 TOTAL PROTEIN (test code = PROT) gram/dL 6.4-8.2 ALBUMIN (test code = ALB) g/dL 3.4-5.0 GLOBULIN (test code = GLOB) gram/dL 2.7-4.2 ALBUMIN/GLOBULIN RATIO (test code = A/G) 0.75-1.50 CALCIUM (test code = CA) mg/dL 8.5-10.1 BILIRUBIN TOTAL (test code = BILT) mg/dL 0.0-1.0 SGOT/AST (test code = AST) IUnit/L 15-37 SGPT/ALT (test code = ALT) IUnit/L 12-78 ALKALINE PHOSPHATASE TOTAL (test code = ALKP) IUnit/L 45-117 [id number] 04:45:00* Test Item Value Reference Range Interpretation Comments MAGNESIUM (test code = MAG) mg/dL 1.8-2.4 CBC W/AUTO [id number] 04:28:00* Test Item Value Reference Range Interpretation Comments WHITE BLOOD CELL (test code = WBC) 4.4 K/mm3 4.5-12.5 L RED BLOOD CELL (test code = RBC) 4.60 mill/mm3 3.7-5.2 N HEMOGLOBIN (test code = HGB) 10.5 gram/dL 11.5-15.5 L HEMATOCRIT (test code = HCT) 34.9 % 36.0-46.0 L MEAN CELL VOLUME (test code = MCV) 75.9 fL 80-98 L MEAN CELL HGB (test code = MCH) 22.8 picogram 27.0-33.0 L MEAN CELL HGB CONCETRATION (test code = MCHC) 30.1 gram/dL 33.0-36. 0 L RED CELL DISTRIBUTION WIDTH (test code = RDW) 16.2 % 11.6-16. 2 N RED CELL DISTRIBUTION WIDTH SD (test code = RDW-SD) 44.3 fL 37 .0-51.0 N PLATELET COUNT (test code = PLT) 150 K/mm3 150-450 N MEAN PLATELET VOLUME (test code = MPV) 10.7 fL 6.7-11.0 N NEUTROPHIL % (test code = NT%) 66.0 % 39.0-69.0 N IMMATURE GRANULOCYTE % (test code = IG%) 0.7 % 0.0-5.0 N LYMPHOCYTE % (test code = LY%) 21.2 % 25.0-55.0 L MONOCYTE % (test code = MO%) 7.1 % 0.0-10.0 N EOSINOPHIL % (test code = EO%) 4.1 % 0.0-5.0 N BASOPHIL % (test code = BA%) 0.9 % 0.0-1.0 N NUCLEATED RBC % (test code = NRBC%) 0.0 % 0-0 N NEUTROPHIL # (test code = NT#) 2.89 K/mm3 1.8-7.7 N IMMATURE GRANULOCYTE # (test code = IG#) 0.03 x10 3/uL 0-0.03 N LYMPHOCYTE # (test code = LY#) 0.93 K/mm3 1.0-5.0 L MONOCYTE # (test code = MO#) 0.31 K/mm3 0-0.8 N EOSINOPHIL # (test code = EO#) 0.18 K/mm3 0.0-0.5 N BASOPHIL # (test code = BA#) 0.04 K/mm3 0.0-0.2 N NUCLEATED RBC # (test code = NRBC#) 0.00 K/mm3 0.0-0.1 N [id number] 23:49:00* Test Item Value Reference Range Interpretation Comments TROPONIN-I (test code = TROPI) 0.024 ng/mL 0-0.045 N COMMENTS TO PATIENT EDUCATOR: COLLECT 3 HOURS AFTER PREVIOUS [id number] 20:30:00* Test Item Value Reference Range Interpretation Comments GLUBED (test code = GLUBED) 288 mg/dL 74-106 H Performed by certified glue spreading machine operator at [facility] [id number] 19:35:00* Test Item Value Reference Range Interpretation Comments TROPONIN-I (test code = TROPI) 0.027 ng/mL 0-0.045 N COMMENTS TO PATIENT EDUCATOR: COLLECT 3 HOURS AFTER PREVIOUS SAMPLE- CT CHEST W/O [id number] 18:12:00 Name: KALYANI TALAVERA [facility] : 1955 Age/S: 64 / F [address] Unit #: [id number] Loc: [place] [address] Phys: Pravin Christianson MD Acct: [id number] Dis Date: Status: ADM IN PHONE #: [phone] Exam Date: 10/17/2019 1800 FAX #: [phone] Reason: Dyspnea, Crackles in bases EXAMS: CPT CODE: [id number] CT CHEST W/O CONTRAST 19400 HISTORY: Dyspnea and crackles in the base. COMPARISON: CT chest from May 17, 2019 and November 15, 2017. Location: TH. CT chest without contrast: Automated exposure control. Suboptimal inspiration. Mild crowding of bronchovascular markings. Bibasal dependent changes. No bronchiectasis, honeycombing or fibrosis. No endobronchial lesions. No parenchymal mass or nodules. Normal caliber unopacified aorta. Dilated pulmonary artery trunk may represent pulmonary arterial hypertension. Thyroid glands are not clearly visible. Esophageal wall is not thickened. 1.3 cm right pretracheal lymph node is unchanged from April 2019. No other pathologic adenopathy. Cardiomegaly without pericardial effusion. Visualized upper abdomen is unremarkable. The subcutaneous tissues and the musculature are normal in appearance. No lytic or blastic lesions are noted within the bony skeleton. DJD. IMPRESSION: Suboptimal inspiration with crowding of bronchovascular markings with bibasal subsegmental atelectasis. No infiltrates, effusion or c ongestion. Single pathologic stable 1.3 cm pretracheal lymph node is no nspecific finding. Electronically Signed by Gregory Chowdhury on at 1812 Reported and signed by: Jodie Love CC: Pravin Christianson MD; Benjamin Masters Technsherri logist:Arianna Hendrix RT(R) CTDI: DLP: Trnscb Date/Time : 10/17/2019 (1811) [email or web address] PAGE 1 Signed Report [id number] 17:25:00* Test Item Value Reference Range Interpretation Comments MAGNESIUM (test code = MAG) 1.8 mg/dL 1.8-2.4 N [id number] 16:20:00* Test Item Value Reference Range Interpretation Comments GLUBED (test code = GLUBED) 221 mg/dL 74-106 H Performed by certified glue spreading machine operator at [facility] B-TYPE NATRIURETIC [id number] 10:56:00* Test Item Value Reference Range Interpretation Comments B-TYPE NATRIURETIC PEPTIDE (test code = BNP) 58.67 pgram/mL 0-100 N BASIC METABOLIC [id number] 10:25:00* Test Item Value Reference Range Interpretation Comments SODIUM (test code = NA) 140 mmol/L 136-145 N POTASSIUM (test code = K) 3.9 mmol/L 3.5-5.1 N CHLORIDE (test code = CL) 106.0 mmol/L 98-107 N CARBON DIOXIDE (test code = CO2) 30.0 mmol/L 21-32 N ANION GAP (test code = GAP) 7.9 10-20 L GLUCOSE (test code = GLU) 137 mg/dL 74-106 H BLOOD UREA NITROGEN (test code = BUN) 22 mg/dL 7-18 H GLOMERULAR FILTRATION RATE (test code = GFR) > 60 mL/min >=60 Estimated GFR by using Modified MDRD formula.Chronic kidney disease is defined as either kidney damageor GFR <60 mL/min/1.73 m2 for >3 months. CREATININE (test code = CREAT) 0.80 mg/dL 0.55-1.02 N Note change in reference range due to change in reagent. BUN/CREATININE RATIO (test code = BUN/CREA) 27.5 10-20 H CALCIUM (test code = CA) 8.6 mg/dL 8.5-10.1 N [id number] 10:25:00* Test Item Value Reference Range Interpretation Comments TROPONIN-I (test code = TROPI) 0.025 ng/mL 0-0.045 N BASIC METABOLIC [id number] 10:15:00* Test Item Value Reference Range Interpretation Comments SODIUM (test code = NA) 140 mmol/L 136-145 N POTASSIUM (test code = K) 3.9 mmol/L 3.5-5.1 N CHLORIDE (test code = CL) 106.0 mmol/L 98-107 N CARBON DIOXIDE (test code = CO2) mmol/L 21-32 ANION GAP (test code = GAP) 10-20 GLUCOSE (test code = GLU) mg/dL 74-106 BLOOD UREA NITROGEN (test code = BUN) mg/dL 7-18 GLOMERULAR FILTRATION RATE (test code = GFR) mL/min >=60 CREATININE (test code = CREAT) mg/dL 0.55-1.02 BUN/CREATININE RATIO (test code = BUN/CREA) 10-20 CALCIUM (test code = CA) mg/dL 8.5-10.1 [id number] 10:15:00* Test Item Value Reference Range Interpretation Comments TROPONIN-I (test code = TROPI) ng/mL 0-0.045 CBC W/O [id number] 09:54:00* Test Item Value Reference Range Interpretation Comments WHITE BLOOD CELL (test code = WBC) 4.9 K/mm3 4.5-12.5 N RED BLOOD CELL (test code = RBC) 4.58 mill/mm3 3.7-5.2 N HEMOGLOBIN (test code = HGB) 10.5 gram/dL 11.5-15.5 L HEMATOCRIT (test code = HCT) 35.8 % 36.0-46.0 L MEAN CELL VOLUME (test code = MCV) 78.2 fL 80-98 L MEAN CELL HGB (test code = MCH) 22.9 picogram 27.0-33.0 L MEAN CELL HGB CONCETRATION (test code = MCHC) 29.3 gram/dL 33.0-36. 0 L RED CELL DISTRIBUTION WIDTH (test code = RDW) 16.4 % 11.6-16. 2 H PLATELET COUNT (test code = PLT) 161 K/mm3 150-450 N MEAN PLATELET VOLUME (test code = MPV) 9.9 fL 6.7-11.0 N - XR CHEST 1 [id number] 09:54:00 FAX: Patel Kulkarni MD [place]: B St: PRE FAX: Benjamin Francis MD [phone] Name: KALYANI TALAVERA [facility] : 1955 Age/S: 64/F [address] Unit #: [id number] [place]: [place] [address] Phys: Patel Kulkarni MD Acct: [id number] Dis Date: Status: PRE ER PHONE #: [phone] Exam Date: 10/17/2019 0946 FAX #: [phone] Reason: Shortness of Breath EXAMS: CPT CODE: [id number] XR CHEST 1 V 89339 CLINICAL HISTORY: Shortness of Breath TECHNIQUE: AP chest x-ray COMPARISON: 09/03/19 IMPRESSION: No significant interval change. Low lung volumes with patchy bibasilar airspace opacity and/or atelectasis. No pleural effusion. Elevated right hemidiaphragm. Mild cardiomegaly with central pulmonary congestion. Mediastinal silhouette is unremarkable. Degenerative changes of the spine. LOCATION: LP at 0954 Reported and signed by: Kary Camacho D.O. CC: Patel Kulkarni MD; Benjamin Masters Technologist: Marci Leyva(R) Trnscrd Date/Time/By: 10/17/19 20 (0954) : By: [email or web address] Orig Print D/T: S: 10/17/2019 (0957) PAGE 1 Signed Report [id number] 15:30:00* Test Item Value Reference Range Interpretation Comments GLUBED (test code = GLUBED) 138 mg/dL 74-106 H Performed by certified glue spreading machine operator at [facility] COMPREHENSIVE METABOLIC [id number] 14:28:00* Test Item Value Reference Range Interpretation Comments SODIUM (test code = NA) 143 mmol/L 136-145 N POTASSIUM (test code = K) 4.1 mmol/L 3.5-5.1 N CHLORIDE (test code = CL) 108.0 mmol/L 98-107 H CARBON DIOXIDE (test code = CO2) 29.0 mmol/L 21-32 N ANION GAP (test code = GAP) 10.1 10-20 N GLUCOSE (test code = GLU) 149 mg/dL 74-106 H BLOOD UREA NITROGEN (test code = BUN) 22 mg/dL 7-18 H GLOMERULAR FILTRATION RATE (test code = GFR) > 60 mL/min >=60 Estimated GFR by using Modified MDRD formula.Chronic kidney disease is defined as either kidney damageor GFR <60 mL/min/1.73 m2 for >3 months. CREATININE (test code = CREAT) 0.80 mg/dL 0.55-1.02 N Note change in reference range due to change in reagent. BUN/CREATININE RATIO (test code = BUN/CREA) 27.5 10-20 H TOTAL PROTEIN (test code = PROT) 6.9 gram/dL 6.4-8.2 N ALBUMIN (test code = ALB) 2.9 g/dL 3.4-5.0 L GLOBULIN (test code = GLOB) 4.0 gram/dL 2.7-4.2 N ALBUMIN/GLOBULIN RATIO (test code = A/G) 0.7 0.75-1.50 L CALCIUM (test code = CA) 9.1 mg/dL 8.5-10.1 N BILIRUBIN TOTAL (test code = BILT) 0.20 mg/dL 0.0-1.0 N SGOT/AST (test code = AST) 34 IUnit/L 15-37 N SGPT/ALT (test code = ALT) 30 IUnit/L 12-78 N ALKALINE PHOSPHATASE TOTAL (test code = ALKP) 97 IUnit/L 45-117 N Note change in reference range due to change in reagent. COMPREHENSIVE METABOLIC [id number] 14:18:00* Test Item Value Reference Range Interpretation Comments SODIUM (test code = NA) 143 mmol/L 136-145 N POTASSIUM (test code = K) 4.1 mmol/L 3.5-5.1 N CHLORIDE (test code = CL) 108.0 mmol/L 98-107 H CARBON DIOXIDE (test code = CO2) mmol/L 21-32 ANION GAP (test code = GAP) 10-20 GLUCOSE (test code = GLU) mg/dL 74-106 BLOOD UREA NITROGEN (test code = BUN) mg/dL 7-18 GLOMERULAR FILTRATION RATE (test code = GFR) mL/min >=60 CREATININE (test code = CREAT) mg/dL 0.55-1.02 BUN/CREATININE RATIO (test code = BUN/CREA) 10-20 TOTAL PROTEIN (test code = PROT) gram/dL 6.4-8.2 ALBUMIN (test code = ALB) g/dL 3.4-5.0 GLOBULIN (test code = GLOB) gram/dL 2.7-4.2 ALBUMIN/GLOBULIN RATIO (test code = A/G) 0.75-1.50 CALCIUM (test code = CA) mg/dL 8.5-10.1 BILIRUBIN TOTAL (test code = BILT) mg/dL 0.0-1.0 SGOT/AST (test code = AST) IUnit/L 15-37 SGPT/ALT (test code = ALT) IUnit/L 12-78 ALKALINE PHOSPHATASE TOTAL (test code = ALKP) IUnit/L 45-117 CBC W/AUTO [id number] 13:43:00* Test Item Value Reference Range Interpretation Comments WHITE BLOOD CELL (test code = WBC) 4.6 K/mm3 4.5-12.5 N RED BLOOD CELL (test code = RBC) 4.64 mill/mm3 3.7-5.2 N HEMOGLOBIN (test code = HGB) 10.7 gram/dL 11.5-15.5 L HEMATOCRIT (test code = HCT) 36.6 % 36.0-46.0 N MEAN CELL VOLUME (test code = MCV) 78.9 fL 80-98 L MEAN CELL HGB (test code = MCH) 23.1 picogram 27.0-33.0 L MEAN CELL HGB CONCETRATION (test code = MCHC) 29.2 gram/dL 33.0-36. 0 L RED CELL DISTRIBUTION WIDTH (test code = RDW) 17.4 % 11.6-16. 2 H RED CELL DISTRIBUTION WIDTH SD (test code = RDW-SD) 49.1 fL 37 .0-51.0 N PLATELET COUNT (test code = PLT) 142 K/mm3 150-450 L MEAN PLATELET VOLUME (test code = MPV) 10.9 fL 6.7-11.0 N NEUTROPHIL % (test code = NT%) 64.3 % 39.0-69.0 N IMMATURE GRANULOCYTE % (test code = IG%) 1.5 % 0.0-5.0 N LYMPHOCYTE % (test code = LY%) 25.9 % 25.0-55.0 N MONOCYTE % (test code = MO%) 5.0 % 0.0-10.0 N EOSINOPHIL % (test code = EO%) 2.6 % 0.0-5.0 N BASOPHIL % (test code = BA%) 0.7 % 0.0-1.0 N NUCLEATED RBC % (test code = NRBC%) 0.4 % 0-0 H NEUTROPHIL # (test code = NT#) 2.93 K/mm3 1.8-7.7 N IMMATURE GRANULOCYTE # (test code = IG#) 0.07 x10 3/uL 0-0.03 H LYMPHOCYTE # (test code = LY#) 1.18 K/mm3 1.0-5.0 N MONOCYTE # (test code = MO#) 0.23 K/mm3 0-0.8 N EOSINOPHIL # (test code = EO#) 0.12 K/mm3 0.0-0.5 N BASOPHIL # (test code = BA#) 0.03 K/mm3 0.0-0.2 N NUCLEATED RBC # (test code = NRBC#) 0.02 K/mm3 0.0-0.1 N CBC W/AUTO [id number] 13:37:00* Test Item Value Reference Range Interpretation Comments WHITE BLOOD CELL (test code = WBC) K/mm3 4.5-12.5 RED BLOOD CELL (test code = RBC) mill/mm3 3.7-5.2 HEMOGLOBIN (test code = HGB) gram/dL 11.5-15.5 HEMATOCRIT (test code = HCT) 36.6 % 36.0-46.0 N MEAN CELL VOLUME (test code = MCV) fL 80-98 MEAN CELL HGB (test code = MCH) picogram 27.0-33.0 MEAN CELL HGB CONCETRATION (test code = MCHC) gram/dL 33.0-36. 0 RED CELL DISTRIBUTION WIDTH (test code = RDW) % 11.6-16. 2 RED CELL DISTRIBUTION WIDTH SD (test code = RDW-SD) fL 37 .0-51.0 PLATELET COUNT (test code = PLT) K/mm3 150-450 MEAN PLATELET VOLUME (test code = MPV) fL 6.7-11.0 NEUTROPHIL % (test code = NT%) % 39.0-69.0 IMMATURE GRANULOCYTE % (test code = IG%) % 0.0-5.0 LYMPHOCYTE % (test code = LY%) % 25.0-55.0 MONOCYTE % (test code = MO%) % 0.0-10.0 EOSINOPHIL % (test code = EO%) % 0.0-5.0 BASOPHIL % (test code = BA%) % 0.0-1.0 NEUTROPHIL # (test code = NT#) K/mm3 1.8-7.7 LYMPHOCYTE # (test code = LY#) K/mm3 1.0-5.0 MONOCYTE # (test code = MO#) K/mm3 0-0.8 EOSINOPHIL # (test code = EO#) K/mm3 0.0-0.5 BASOPHIL # (test code = BA#) K/mm3 0.0-0.2 [id number] 12:24:00* Test Item Value Reference Range Interpretation Comments GLUBED (test code = GLUBED) 142 mg/dL 74-106 H Performed by certified glue spreading machine operator at [facility] [id number] 07:57:00* Test Item Value Reference Range Interpretation Comments GLUBED (test code = GLUBED) 221 mg/dL 74-106 H Performed by certified glue spreading machine operator at [facility] - XR CHEST 1 [id number] 21:23:00 FAX: Alfa Moscoso MD [phone] [place]: St: [facility] FAX: Benjamin Francis MD [phone] Name: KALYANI TALAVERA [facility] : 1955 Age/S: 64/F [address] [facility] Unit #: [id number] Loc: V.31[address] [place] [address] Phys: Alfa Cassidy MD Acct: [id number] Dis Date: Status: ADM IN PHONE #: [phone] Exam Date: 09/07/20192048 FAX #: [phone] Reason: ACUTE CHF EXAMS: CPT CODE: [id number] XR CHEST 1 V 69256 CLINICAL HISTORY: ACUTE CHF TECHNIQUE: AP chest x-ray COMPARISON: 09/03/19 IMPRESSION: No significant interval change. Low lung volumes with bibasilar subsegmental atelectasis. No airspace consolidation or pleural effusion. Mild cardiomegaly with pulmonary congestion. Mediastinal silhouette is unre markable. LOCATION: LP at 2122 Reported and signed by: Kary Camacho D.O. CC: Alfa Osullivan MD; Benjamin Masters Technologist: Freda Guzman T(R); TAWANNA HURTADO RT(R) Trnscrd Date/Time/By: 09/07/2019 (2122) : By: [email or web address] Orig Print D/T: S: 09/07/2019 (2125) PAGE 1 Signed Report [id number] 20:44:00* Test Item Value Reference Range Interpretation Comments GLUBED (test code = GLUBED) 176 mg/dL 74-106 H Performed by certified glue spreading machine operator at [facility] CBC W/AUTO [id number] 17:54:00* Test Item Value Reference Range Interpretation Comments WHITE BLOOD CELL (test code = WBC) 3.7 K/mm3 4.5-12.5 L RED BLOOD CELL (test code = RBC) 4.61 mill/mm3 3.7-5.2 N HEMOGLOBIN (test code = HGB) 10.9 gram/dL 11.5-15.5 L HEMATOCRIT (test code = HCT) 37.0 % 36.0-46.0 N MEAN CELL VOLUME (test code = MCV) 80.3 fL 80-98 N MEAN CELL HGB (test code = MCH) 23.6 picogram 27.0-33.0 L MEAN CELL HGB CONCETRATION (test code = MCHC) 29.5 gram/dL 33.0-36. 0 L RED CELL DISTRIBUTION WIDTH (test code = RDW) 17.1 % 11.6-16. 2 H RED CELL DISTRIBUTION WIDTH SD (test code = RDW-SD) 48.8 fL 37 .0-51.0 N PLATELET COUNT (test code = PLT) 146 K/mm3 150-450 L MEAN PLATELET VOLUME (test code = MPV) 11.5 fL 6.7-11.0 H NEUTROPHIL % (test code = NT%) 62.3 % 39.0-69.0 N IMMATURE GRANULOCYTE % (test code = IG%) 1.1 % 0.0-5.0 N LYMPHOCYTE % (test code = LY%) 26.2 % 25.0-55.0 N MONOCYTE % (test code = MO%) 6.3 % 0.0-10.0 N EOSINOPHIL % (test code = EO%) 3.3 % 0.0-5.0 N BASOPHIL % (test code = BA%) 0.8 % 0.0-1.0 N NUCLEATED RBC % (test code = NRBC%) 0.0 % 0-0 N NEUTROPHIL # (test code = NT#) 2.28 K/mm3 1.8-7.7 N IMMATURE GRANULOCYTE # (test code = IG#) 0.04 x10 3/uL 0-0.03 H LYMPHOCYTE # (test code = LY#) 0.96 K/mm3 1.0-5.0 L MONOCYTE # (test code = MO#) 0.23 K/mm3 0-0.8 N EOSINOPHIL # (test code = EO#) 0.12 K/mm3 0.0-0.5 N BASOPHIL # (test code = BA#) 0.03 K/mm3 0.0-0.2 N NUCLEATED RBC # (test code = NRBC#) 0.00 K/mm3 0.0-0.1 N MANUAL DIFF REQUIRED (test code = MDIFF) NO, ONLY SCAN NEEDED DIFFERENTIAL [id number] 17:54:00* Test Item Value Reference Range Interpretation Comments STAIN ACCEPTABILITY (test code = STN ACCEPTABLE) STAIN ACCEPTABLE ANISOCYTOSIS (test code = ANISO) 1+ PLATELET ESTIMATE (test code = PLTEST) DECREASED PLATELET MORPHOLOGY (test code = PLTMORPH) NORMAL COMPREHENSIVE METABOLIC [id number] 17:01:00* Test Item Value Reference Range Interpretation Comments SODIUM (test code = NA) 140 mmol/L 136-145 N POTASSIUM (test code = K) 4.2 mmol/L 3.5-5.1 N CHLORIDE (test code = CL) 108.0 mmol/L 98-107 H CARBON DIOXIDE (test code = CO2) 27.0 mmol/L 21-32 N ANION GAP (test code = GAP) 9.2 10-20 L GLUCOSE (test code = GLU) 276 mg/dL 74-106 H BLOOD UREA NITROGEN (test code = BUN) 25 mg/dL 7-18 H GLOMERULAR FILTRATION RATE (test code = GFR) 50 mL/min >=60 Estimated GFR by using Modified MDRD formula.Chronic kidney disease is defined as either kidney damageor GFR <60 mL/min/1.73 m2 for >3 months. CREATININE (test code = CREAT) 1.10 mg/dL 0.55-1.02 H Note change in reference range due to change in reagent. BUN/CREATININE RATIO (test code = BUN/CREA) 22.7 10-20 H TOTAL PROTEIN (test code = PROT) 6.3 gram/dL 6.4-8.2 L ALBUMIN (test code = ALB) 3.0 g/dL 3.4-5.0 L GLOBULIN (test code = GLOB) 3.3 gram/dL 2.7-4.2 N ALBUMIN/GLOBULIN RATIO (test code = A/G) 0.9 0.75-1.50 N CALCIUM (test code = CA) 8.4 mg/dL 8.5-10.1 L BILIRUBIN TOTAL (test code = BILT) 0.20 mg/dL 0.0-1.0 N SGOT/AST (test code = AST) 14 IUnit/L 15-37 L SGPT/ALT (test code = ALT) 19 IUnit/L 12-78 N ALKALINE PHOSPHATASE TOTAL (test code = ALKP) 93 IUnit/L 45-117 N Note change in reference range due to change in reagent. [id number] 17:00:00* Test Item Value Reference Range Interpretation Comments GLUBED (test code = GLUBED) 270 mg/dL 74-106 H Performed by certified glue spreading machine operator at [facility] B-TYPE NATRIURETIC [id number] 17:00:00* Test Item Value Reference Range Interpretation Comments B-TYPE NATRIURETIC PEPTIDE (test code = BNP) 33.15 pgram/mL 0-100 N CBC W/AUTO [id number] 16:55:00* Test Item Value Reference Range Interpretation Comments WHITE BLOOD CELL (test code = WBC) 3.7 K/mm3 4.5-12.5 L RED BLOOD CELL (test code = RBC) 4.61 mill/mm3 3.7-5.2 N HEMOGLOBIN (test code = HGB) 10.9 gram/dL 11.5-15.5 L HEMATOCRIT (test code = HCT) 37.0 % 36.0-46.0 N MEAN CELL VOLUME (test code = MCV) 80.3 fL 80-98 N MEAN CELL HGB (test code = MCH) 23.6 picogram 27.0-33.0 L MEAN CELL HGB CONCETRATION (test code = MCHC) 29.5 gram/dL 33.0-36. 0 L RED CELL DISTRIBUTION WIDTH (test code = RDW) 17.1 % 11.6-16. 2 H RED CELL DISTRIBUTION WIDTH SD (test code = RDW-SD) 48.8 fL 37 .0-51.0 N PLATELET COUNT (test code = PLT) 146 K/mm3 150-450 L MEAN PLATELET VOLUME (test code = MPV) 11.5 fL 6.7-11.0 H NEUTROPHIL % (test code = NT%) 62.3 % 39.0-69.0 N IMMATURE GRANULOCYTE % (test code = IG%) 1.1 % 0.0-5.0 N LYMPHOCYTE % (test code = LY%) 26.2 % 25.0-55.0 N MONOCYTE % (test code = MO%) 6.3 % 0.0-10.0 N EOSINOPHIL % (test code = EO%) 3.3 % 0.0-5.0 N BASOPHIL % (test code = BA%) 0.8 % 0.0-1.0 N NUCLEATED RBC % (test code = NRBC%) 0.0 % 0-0 N NEUTROPHIL # (test code = NT#) 2.28 K/mm3 1.8-7.7 N IMMATURE GRANULOCYTE # (test code = IG#) 0.04 x10 3/uL 0-0.03 H LYMPHOCYTE # (test code = LY#) 0.96 K/mm3 1.0-5.0 L MONOCYTE # (test code = MO#) 0.23 K/mm3 0-0.8 N EOSINOPHIL # (test code = EO#) 0.12 K/mm3 0.0-0.5 N BASOPHIL # (test code = BA#) 0.03 K/mm3 0.0-0.2 N NUCLEATED RBC # (test code = NRBC#) 0.00 K/mm3 0.0-0.1 N MANUAL DIFF REQUIRED (test code = MDIFF) NO, ONLY SCAN NEEDED DIFFERENTIAL [id number] 16:55:00* Test Item Value Reference Range Interpretation Comments STAIN ACCEPTABILITY (test code = STN ACCEPTABLE) CABOT RINGS (test code = CAB) MORPHOLOGY COMMENT (test code = MOC) PLATELET ESTIMATE (test code = PLTEST) PLATELET MORPHOLOGY (test code = PLTMORPH) CBC W/AUTO [id number] 16:55:00* Test Item Value Reference Range Interpretation Comments WHITE BLOOD CELL (test code = WBC) 3.7 K/mm3 4.5-12.5 L RED BLOOD CELL (test code = RBC) 4.61 mill/mm3 3.7-5.2 N HEMOGLOBIN (test code = HGB) 10.9 gram/dL 11.5-15.5 L HEMATOCRIT (test code = HCT) 37.0 % 36.0-46.0 N MEAN CELL VOLUME (test code = MCV) 80.3 fL 80-98 N MEAN CELL HGB (test code = MCH) 23.6 picogram 27.0-33.0 L MEAN CELL HGB CONCETRATION (test code = MCHC) 29.5 gram/dL 33.0-36. 0 L RED CELL DISTRIBUTION WIDTH (test code = RDW) 17.1 % 11.6-16. 2 H RED CELL DISTRIBUTION WIDTH SD (test code = RDW-SD) 48.8 fL 37 .0-51.0 N PLATELET COUNT (test code = PLT) 146 K/mm3 150-450 L MEAN PLATELET VOLUME (test code = MPV) 11.5 fL 6.7-11.0 H NEUTROPHIL % (test code = NT%) 62.3 % 39.0-69.0 N IMMATURE GRANULOCYTE % (test code = IG%) 1.1 % 0.0-5.0 N LYMPHOCYTE % (test code = LY%) 26.2 % 25.0-55.0 N MONOCYTE % (test code = MO%) 6.3 % 0.0-10.0 N EOSINOPHIL % (test code = EO%) 3.3 % 0.0-5.0 N BASOPHIL % (test code = BA%) 0.8 % 0.0-1.0 N NUCLEATED RBC % (test code = NRBC%) 0.0 % 0-0 N NEUTROPHIL # (test code = NT#) 2.28 K/mm3 1.8-7.7 N IMMATURE GRANULOCYTE # (test code = IG#) 0.04 x10 3/uL 0-0.03 H LYMPHOCYTE # (test code = LY#) 0.96 K/mm3 1.0-5.0 L MONOCYTE # (test code = MO#) 0.23 K/mm3 0-0.8 N EOSINOPHIL # (test code = EO#) 0.12 K/mm3 0.0-0.5 N BASOPHIL # (test code = BA#) 0.03 K/mm3 0.0-0.2 N NUCLEATED RBC # (test code = NRBC#) 0.00 K/mm3 0.0-0.1 N MANUAL DIFF REQUIRED (test code = MDIFF) NO, ONLY SCAN NEEDED DIFFERENTIAL [id number] 16:55:00* Test Item Value Reference Range Interpretation Comments STAIN ACCEPTABILITY (test code = STN ACCEPTABLE) CABOT RINGS (test code = CAB) MORPHOLOGY COMMENT (test code = MOC) PLATELET ESTIMATE (test code = PLTEST) PLATELET MORPHOLOGY (test code = PLTMORPH) CBC W/AUTO [id number] 16:55:00* Test Item Value Reference Range Interpretation Comments WHITE BLOOD CELL (test code = WBC) 3.7 K/mm3 4.5-12.5 L RED BLOOD CELL (test code = RBC) 4.61 mill/mm3 3.7-5.2 N HEMOGLOBIN (test code = HGB) 10.9 gram/dL 11.5-15.5 L HEMATOCRIT (test code = HCT) 37.0 % 36.0-46.0 N MEAN CELL VOLUME (test code = MCV) 80.3 fL 80-98 N MEAN CELL HGB (test code = MCH) 23.6 picogram 27.0-33.0 L MEAN CELL HGB CONCETRATION (test code = MCHC) 29.5 gram/dL 33.0-36. 0 L RED CELL DISTRIBUTION WIDTH (test code = RDW) 17.1 % 11.6-16. 2 H RED CELL DISTRIBUTION WIDTH SD (test code = RDW-SD) 48.8 fL 37 .0-51.0 N PLATELET COUNT (test code = PLT) 146 K/mm3 150-450 L MEAN PLATELET VOLUME (test code = MPV) 11.5 fL 6.7-11.0 H NEUTROPHIL % (test code = NT%) 62.3 % 39.0-69.0 N IMMATURE GRANULOCYTE % (test code = IG%) 1.1 % 0.0-5.0 N LYMPHOCYTE % (test code = LY%) 26.2 % 25.0-55.0 N MONOCYTE % (test code = MO%) 6.3 % 0.0-10.0 N EOSINOPHIL % (test code = EO%) 3.3 % 0.0-5.0 N BASOPHIL % (test code = BA%) 0.8 % 0.0-1.0 N NUCLEATED RBC % (test code = NRBC%) 0.0 % 0-0 N NEUTROPHIL # (test code = NT#) 2.28 K/mm3 1.8-7.7 N IMMATURE GRANULOCYTE # (test code = IG#) 0.04 x10 3/uL 0-0.03 H LYMPHOCYTE # (test code = LY#) 0.96 K/mm3 1.0-5.0 L MONOCYTE # (test code = MO#) 0.23 K/mm3 0-0.8 N EOSINOPHIL # (test code = EO#) 0.12 K/mm3 0.0-0.5 N BASOPHIL # (test code = BA#) 0.03 K/mm3 0.0-0.2 N NUCLEATED RBC # (test code = NRBC#) 0.00 K/mm3 0.0-0.1 N MANUAL DIFF REQUIRED (test code = MDIFF) NO, ONLY SCAN NEEDED DIFFERENTIAL [id number] 16:55:00* Test Item Value Reference Range Interpretation Comments STAIN ACCEPTABILITY (test code = STN ACCEPTABLE) MORPHOLOGY COMMENT (test code = MOC) PLATELET ESTIMATE (test code = PLTEST) PLATELET MORPHOLOGY (test code = PLTMORPH) CBC W/AUTO [id number] 16:55:00* Test Item Value Reference Range Interpretation Comments WHITE BLOOD CELL (test code = WBC) 3.7 K/mm3 4.5-12.5 L RED BLOOD CELL (test code = RBC) 4.61 mill/mm3 3.7-5.2 N HEMOGLOBIN (test code = HGB) 10.9 gram/dL 11.5-15.5 L HEMATOCRIT (test code = HCT) 37.0 % 36.0-46.0 N MEAN CELL VOLUME (test code = MCV) 80.3 fL 80-98 N MEAN CELL HGB (test code = MCH) 23.6 picogram 27.0-33.0 L MEAN CELL HGB CONCETRATION (test code = MCHC) 29.5 gram/dL 33.0-36. 0 L RED CELL DISTRIBUTION WIDTH (test code = RDW) 17.1 % 11.6-16. 2 H RED CELL DISTRIBUTION WIDTH SD (test code = RDW-SD) 48.8 fL 37 .0-51.0 N PLATELET COUNT (test code = PLT) 146 K/mm3 150-450 L MEAN PLATELET VOLUME (test code = MPV) 11.5 fL 6.7-11.0 H NEUTROPHIL % (test code = NT%) 62.3 % 39.0-69.0 N IMMATURE GRANULOCYTE % (test code = IG%) 1.1 % 0.0-5.0 N LYMPHOCYTE % (test code = LY%) 26.2 % 25.0-55.0 N MONOCYTE % (test code = MO%) 6.3 % 0.0-10.0 N EOSINOPHIL % (test code = EO%) 3.3 % 0.0-5.0 N BASOPHIL % (test code = BA%) 0.8 % 0.0-1.0 N NUCLEATED RBC % (test code = NRBC%) 0.0 % 0-0 N NEUTROPHIL # (test code = NT#) 2.28 K/mm3 1.8-7.7 N IMMATURE GRANULOCYTE # (test code = IG#) 0.04 x10 3/uL 0-0.03 H LYMPHOCYTE # (test code = LY#) 0.96 K/mm3 1.0-5.0 L MONOCYTE # (test code = MO#) 0.23 K/mm3 0-0.8 N EOSINOPHIL # (test code = EO#) 0.12 K/mm3 0.0-0.5 N BASOPHIL # (test code = BA#) 0.03 K/mm3 0.0-0.2 N NUCLEATED RBC # (test code = NRBC#) 0.00 K/mm3 0.0-0.1 N MANUAL DIFF REQUIRED (test code = MDIFF) NO, ONLY SCAN NEEDED DIFFERENTIAL [id number] 16:55:00* Test Item Value Reference Range Interpretation Comments STAIN ACCEPTABILITY (test code = STN ACCEPTABLE) CABOT RINGS (test code = CAB) MORPHOLOGY COMMENT (test code = MOC) PLATELET ESTIMATE (test code = PLTEST) PLATELET MORPHOLOGY (test code = PLTMORPH) CBC W/AUTO [id number] 16:49:00* Test Item Value Reference Range Interpretation Comments WHITE BLOOD CELL (test code = WBC) K/mm3 4.5-12.5 RED BLOOD CELL (test code = RBC) mill/mm3 3.7-5.2 HEMOGLOBIN (test code = HGB) gram/dL 11.5-15.5 HEMATOCRIT (test code = HCT) 37.0 % 36.0-46.0 N MEAN CELL VOLUME (test code = MCV) fL 80-98 MEAN CELL HGB (test code = MCH) picogram 27.0-33.0 MEAN CELL HGB CONCETRATION (test code = MCHC) gram/dL 33.0-36. 0 RED CELL DISTRIBUTION WIDTH (test code = RDW) % 11.6-16. 2 RED CELL DISTRIBUTION WIDTH SD (test code = RDW-SD) fL 37 .0-51.0 PLATELET COUNT (test code = PLT) K/mm3 150-450 MEAN PLATELET VOLUME (test code = MPV) fL 6.7-11.0 NEUTROPHIL % (test code = NT%) % 39.0-69.0 IMMATURE GRANULOCYTE % (test code = IG%) % 0.0-5.0 LYMPHOCYTE % (test code = LY%) % 25.0-55.0 MONOCYTE % (test code = MO%) % 0.0-10.0 EOSINOPHIL % (test code = EO%) % 0.0-5.0 BASOPHIL % (test code = BA%) % 0.0-1.0 NEUTROPHIL # (test code = NT#) K/mm3 1.8-7.7 LYMPHOCYTE # (test code = LY#) K/mm3 1.0-5.0 MONOCYTE # (test code = MO#) K/mm3 0-0.8 EOSINOPHIL # (test code = EO#) K/mm3 0.0-0.5 BASOPHIL # (test code = BA#) K/mm3 0.0-0.2 COMPREHENSIVE METABOLIC [id number] 16:49:00* Test Item Value Reference Range Interpretation Comments SODIUM (test code = NA) 140 mmol/L 136-145 N POTASSIUM (test code = K) 4.2 mmol/L 3.5-5.1 N CHLORIDE (test code = CL) 108.0 mmol/L 98-107 H CARBON DIOXIDE (test code = CO2) mmol/L 21-32 ANION GAP (test code = GAP) 10-20 GLUCOSE (test code = GLU) mg/dL 74-106 BLOOD UREA NITROGEN (test code = BUN) mg/dL 7-18 GLOMERULAR FILTRATION RATE (test code = GFR) mL/min >=60 CREATININE (test code = CREAT) mg/dL 0.55-1.02 BUN/CREATININE RATIO (test code = BUN/CREA) 10-20 TOTAL PROTEIN (test code = PROT) gram/dL 6.4-8.2 ALBUMIN (test code = ALB) g/dL 3.4-5.0 GLOBULIN (test code = GLOB) gram/dL 2.7-4.2 ALBUMIN/GLOBULIN RATIO (test code = A/G) 0.75-1.50 CALCIUM (test code = CA) mg/dL 8.5-10.1 BILIRUBIN TOTAL (test code = BILT) mg/dL 0.0-1.0 SGOT/AST (test code = AST) IUnit/L 15-37 SGPT/ALT (test code = ALT) IUnit/L 12-78 ALKALINE PHOSPHATASE TOTAL (test code = ALKP) IUnit/L 45-117 [id number] 12:09:00* Test Item Value Reference Range Interpretation Comments GLUBED (test code = GLUBED) 219 mg/dL 74-106 H Performed by certified glue spreading machine operator at [facility] [id number] 08:21:00* Test Item Value Reference Range Interpretation Comments GLUBED (test code = GLUBED) 249 mg/dL 74-106 H Performed by certified glue spreading machine operator at [facility] BASIC METABOLIC [id number] 06:22:00* Test Item Value Reference Range Interpretation Comments SODIUM (test code = NA) 142 mmol/L 136-145 RESU LT VERIFIED BY REPEAT ANALYSIS POTASSIUM (test code = K) 3.7 mmol/L 3.5-5.1 N CHLORIDE (test code = CL) 108.0 mmol/L 98-107 H CARBON DIOXIDE (test code = CO2) 27.0 mmol/L 21-32 N ANION GAP (test code = GAP) 10.7 10-20 N GLUCOSE (test code = GLU) 233 mg/dL 74-106 H BLOOD UREA NITROGEN (test code = BUN) 27 mg/dL 7-18 H RESULT VERIFIED BY REPEAT ANALYSIS GLOMERULAR FILTRATION RATE (test code = GFR) > 60 mL/min >=60 Estimated GFR by using Modified MDRD formula.Chronic kidney disease is defined as either kidney damageor GFR <60 mL/min/1.73 m2 for >3 months. CREATININE (test code = CREAT) 0.90 mg/dL 0.55-1.02 N Note change in reference range due to change in reagent. BUN/CREATININE RATIO (test code = BUN/CREA) 30.0 10-20 H CALCIUM (test code = CA) 8.6 mg/dL 8.5-10.1 N [id number] 20:04:00* Test Item Value Reference Range Interpretation Comments GLUBED (test code = GLUBED) 282 mg/dL 74-106 H Performed by certified glue spreading machine operator at [facility] [id number] 17:10:00* Test Item Value Reference Range Interpretation Comments GLUBED (test code = GLUBED) 210 mg/dL 74-106 H Performed by certified glue spreading machine operator at [facility] [id number] 11:31:00* Test Item Value Reference Range Interpretation Comments GLUBED (test code = GLUBED) 179 mg/dL 74-106 H Performed by certified glue spreading machine operator at [facility] BASIC METABOLIC [id number] 09:04:00* Test Item Value Reference Range Interpretation Comments SODIUM (test code = NA) 137 mmol/L 136-145 N POTASSIUM (test code = K) 3.9 mmol/L 3.5-5.1 N CHLORIDE (test code = CL) 102.0 mmol/L 98-107 N CARBON DIOXIDE (test code = CO2) 28.0 mmol/L 21-32 N ANION GAP (test code = GAP) 10.9 10-20 N GLUCOSE (test code = GLU) 213 mg/dL 74-106 H BLOOD UREA NITROGEN (test code = BUN) 36 mg/dL 7-18 H GLOMERULAR FILTRATION RATE (test code = GFR) > 60 mL/min >=60 Estimated GFR by using Modified MDRD formula.Chronic kidney disease is defined as either kidney damageor GFR <60 mL/min/1.73 m2 for >3 months. CREATININE (test code = CREAT) 0.90 mg/dL 0.55-1.02 N Note change in reference range due to change in reagent. BUN/CREATININE RATIO (test code = BUN/CREA) 40.0 10-20 H CALCIUM (test code = CA) 8.7 mg/dL 8.5-10.1 N BASIC METABOLIC [id number] 08:59:00* Test Item Value Reference Range Interpretation Comments SODIUM (test code = NA) 137 mmol/L 136-145 N POTASSIUM (test code = K) 3.9 mmol/L 3.5-5.1 N CHLORIDE (test code = CL) 102.0 mmol/L 98-107 N CARBON DIOXIDE (test code = CO2) mmol/L 21-32 ANION GAP (test code = GAP) 10-20 GLUCOSE (test code = GLU) mg/dL 74-106 BLOOD UREA NITROGEN (test code = BUN) mg/dL 7-18 GLOMERULAR FILTRATION RATE (test code = GFR) mL/min >=60 CREATININE (test code = CREAT) mg/dL 0.55-1.02 BUN/CREATININE RATIO (test code = BUN/CREA) 10-20 CALCIUM (test code = CA) mg/dL 8.5-10.1 [id number] 08:24:00* Test Item Value Reference Range Interpretation Comments GLUBED (test code = GLUBED) 201 mg/dL 74-106 H Performed by certified glue spreading machine operator at [facility] [id number] 21:07:00* Test Item Value Reference Range Interpretation Comments GLUBED (test code = GLUBED) 185 mg/dL 74-106 H Performed by certified glue spreading machine operator at [facility] [id number] 20:21:00* Test Item Value Reference Range Interpretation Comments GLUBED (test code = GLUBED) 168 mg/dL 74-106 H Performed by certified glue spreading machine operator at [facility] [id number] 17:21:00* Test Item Value Reference Range Interpretation Comments GLUBED (test code = GLUBED) 104 mg/dL 74-106 N Performed by certified glue spreading machine operator at [facility] [id number] 11:54:00* Test Item Value Reference Range Interpretation Comments GLUBED (test code = GLUBED) 207 mg/dL 74-106 H Performed by certified glue spreading machine operator at [facility] [id number] 10:26:00* Test Item Value Reference Range Interpretation Comments GLUBED (test code = GLUBED) 266 mg/dL 74-106 H Performed by certified glue spreading machine operator at [facility] BASIC METABOLIC [id number] 08:10:00* Test Item Value Reference Range Interpretation Comments SODIUM (test code = NA) 133 mmol/L 136-145 L POTASSIUM (test code = K) 4.0 mmol/L 3.5-5.1 N CHLORIDE (test code = CL) 96.0 mmol/L 98-107 L CARBON DIOXIDE (test code = CO2) 30.0 mmol/L 21-32 N ANION GAP (test code = GAP) 11.0 10-20 N GLUCOSE (test code = GLU) 240 mg/dL 74-106 H BLOOD UREA NITROGEN (test code = BUN) 47 mg/dL 7-18 H GLOMERULAR FILTRATION RATE (test code = GFR) 56 mL/min >=60 Estimated GFR by using Modified MDRD formula.Chronic kidney disease is defined as either kidney damageor GFR <60 mL/min/1.73 m2 for >3 months. CREATININE (test code = CREAT) 1.00 mg/dL 0.55-1.02 N Note change in reference range due to change in reagent. BUN/CREATININE RATIO (test code = BUN/CREA) 47.0 10-20 H CALCIUM (test code = CA) 8.5 mg/dL 8.5-10.1 N BASIC METABOLIC [id number] 08:01:00* Test Item Value Reference Range Interpretation Comments SODIUM (test code = NA) 133 mmol/L 136-145 L POTASSIUM (test code = K) 4.0 mmol/L 3.5-5.1 N CHLORIDE (test code = CL) 96.0 mmol/L 98-107 L CARBON DIOXIDE (test code = CO2) mmol/L 21-32 ANION GAP (test code = GAP) 10-20 GLUCOSE (test code = GLU) mg/dL 74-106 BLOOD UREA NITROGEN (test code = BUN) mg/dL 7-18 GLOMERULAR FILTRATION RATE (test code = GFR) mL/min >=60 CREATININE (test code = CREAT) mg/dL 0.55-1.02 BUN/CREATININE RATIO (test code = BUN/CREA) 10-20 CALCIUM (test code = CA) mg/dL 8.5-10.1 [id number] 20:13:00* Test Item Value Reference Range Interpretation Comments GLUBED (test code = GLUBED) 280 mg/dL 74-106 H Performed by certified glue spreading machine operator at [facility] URINALYSIS [id number] 18:55:00* Test Item Value Reference Range Interpretation Comments UA COLOR (test code = COLU) Light-Yellow YELLOW UA APPEARANCE (test code = APPU) CLEAR CLEAR UA GLUCOSE DIPSTICK (test code = DGLUU) NEGATIVE mg/dL NEGATIVE UA BILIRUBIN DIPSTICK (test code = BILU) NEGATIVE mg/dL NEGATIVE UA KETONE DIPSTICK (test code = KETU) NEGATIVE mg/dL NEGATIVE UA SPECIFIC GRAVITY (test code = SGU) 1.012 1.001-1.035 UA BLOOD DIPSTICK (test code = MONICA) Negative mg/dL NEGATIVE UA PH DIPSTICK (test code = VIVEK) 5.0 5.0-8.0 UA PROTEIN DIPSTICK (test code = PROU) NEGATIVE mg/dL NEGATIVE UA UROBILINIOGEN DIPSTICK (test code = URO) Normal mg/dL NEGATIVE UA NITRITE DIPSTICK (test code = GOYO) NEGATIVE NEGATIVE UA LEUKOCYTE ESTERASE W REFLEX (test code = LEUUR) NEGATIVE Kendra/uL NEGATIVE UA WBC (test code = WBCU) 0-5 per HPF 0-5 UA RBC (test code = RBCU) 0-2 #/HPF 0-5 UA EPITHELIAL CELLS (test code = EPIU) FEW per HPF FEW UA BACTERIA (test code = BACU) FEW #/HPF NONE A UA MUCUS (test code = MUCU) FEW #/LPF FEW BY V.LAB.THSPECIMEN COMMENTS: urineUrine Source? [id number] 16:55:00* Test Item Value Reference Range Interpretation Comments GLUBED (test code = GLUBED) 151 mg/dL 74-106 H Performed by certified glue spreading machine operator at [facility] [id number] 15:39:00* Test Item Value Reference Range Interpretation Comments GLUBED (test code = GLUBED) 264 mg/dL 74-106 H Performed by certified glue spreading machine operator at [facility] CBC W/AUTO [id number] 11:09:00* Test Item Value Reference Range Interpretation Comments WHITE BLOOD CELL (test code = WBC) 3.9 K/mm3 4.5-12.5 L RED BLOOD CELL (test code = RBC) 4.59 mill/mm3 3.7-5.2 N HEMOGLOBIN (test code = HGB) 10.7 gram/dL 11.5-15.5 L HEMATOCRIT (test code = HCT) 36.6 % 36.0-46.0 N MEAN CELL VOLUME (test code = MCV) 78.4 fL 80-98 L MEAN CELL HGB (test code = MCH) 23.3 picogram 27.0-33.0 L MEAN CELL HGB CONCETRATION (test code = MCHC) 29.7 gram/dL 33.0-36. 0 L RED CELL DISTRIBUTION WIDTH (test code = RDW) 17.6 % 11.6-16. 2 H RED CELL DISTRIBUTION WIDTH SD (test code = RDW-SD) 49.9 fL 37 .0-51.0 N PLATELET COUNT (test code = PLT) 117 K/mm3 150-450 L MEAN PLATELET VOLUME (test code = MPV) 11.7 fL 6.7-11.0 H NEUTROPHIL % (test code = NT%) 66.5 % 39.0-69.0 N IMMATURE GRANULOCYTE % (test code = IG%) 0.5 % 0.0-5.0 N LYMPHOCYTE % (test code = LY%) 22.3 % 25.0-55.0 L MONOCYTE % (test code = MO%) 8.2 % 0.0-10.0 N EOSINOPHIL % (test code = EO%) 1.5 % 0.0-5.0 N BASOPHIL % (test code = BA%) 1.0 % 0.0-1.0 N NUCLEATED RBC % (test code = NRBC%) 0.0 % 0-0 N NEUTROPHIL # (test code = NT#) 2.60 K/mm3 1.8-7.7 N IMMATURE GRANULOCYTE # (test code = IG#) 0.02 x10 3/uL 0-0.03 N LYMPHOCYTE # (test code = LY#) 0.87 K/mm3 1.0-5.0 L MONOCYTE # (test code = MO#) 0.32 K/mm3 0-0.8 N EOSINOPHIL # (test code = EO#) 0.06 K/mm3 0.0-0.5 N BASOPHIL # (test code = BA#) 0.04 K/mm3 0.0-0.2 N NUCLEATED RBC # (test code = NRBC#) 0.00 K/mm3 0.0-0.1 N MANUAL DIFF REQUIRED (test code = MDIFF) NO, ONLY SCAN NEEDED DIFFERENTIAL [id number] 11:09:00* Test Item Value Reference Range Interpretation Comments STAIN ACCEPTABILITY (test code = STN ACCEPTABLE) STAIN ACCEPTABLE HYPOCHROMIA (test code = HYPO) 1+ ANISOCYTOSIS (test code = ANISO) 1+ PLATELET ESTIMATE (test code = PLTEST) SLIGHTLY DECREASED PLATELET MORPHOLOGY (test code = PLTMORPH) NORMAL CBC W/AUTO [id number] 10:19:00* Test Item Value Reference Range Interpretation Comments WHITE BLOOD CELL (test code = WBC) 3.9 K/mm3 4.5-12.5 L RED BLOOD CELL (test code = RBC) 4.59 mill/mm3 3.7-5.2 N HEMOGLOBIN (test code = HGB) 10.7 gram/dL 11.5-15.5 L HEMATOCRIT (test code = HCT) 36.6 % 36.0-46.0 N MEAN CELL VOLUME (test code = MCV) 78.4 fL 80-98 L MEAN CELL HGB (test code = MCH) 23.3 picogram 27.0-33.0 L MEAN CELL HGB CONCETRATION (test code = MCHC) 29.7 gram/dL 33.0-36. 0 L RED CELL DISTRIBUTION WIDTH (test code = RDW) 17.6 % 11.6-16. 2 H RED CELL DISTRIBUTION WIDTH SD (test code = RDW-SD) 49.9 fL 37 .0-51.0 N PLATELET COUNT (test code = PLT) 117 K/mm3 150-450 L MEAN PLATELET VOLUME (test code = MPV) 11.7 fL 6.7-11.0 H NEUTROPHIL % (test code = NT%) 66.5 % 39.0-69.0 N IMMATURE GRANULOCYTE % (test code = IG%) 0.5 % 0.0-5.0 N LYMPHOCYTE % (test code = LY%) 22.3 % 25.0-55.0 L MONOCYTE % (test code = MO%) 8.2 % 0.0-10.0 N EOSINOPHIL % (test code = EO%) 1.5 % 0.0-5.0 N BASOPHIL % (test code = BA%) 1.0 % 0.0-1.0 N NUCLEATED RBC % (test code = NRBC%) 0.0 % 0-0 N NEUTROPHIL # (test code = NT#) 2.60 K/mm3 1.8-7.7 N IMMATURE GRANULOCYTE # (test code = IG#) 0.02 x10 3/uL 0-0.03 N LYMPHOCYTE # (test code = LY#) 0.87 K/mm3 1.0-5.0 L MONOCYTE # (test code = MO#) 0.32 K/mm3 0-0.8 N EOSINOPHIL # (test code = EO#) 0.06 K/mm3 0.0-0.5 N BASOPHIL # (test code = BA#) 0.04 K/mm3 0.0-0.2 N NUCLEATED RBC # (test code = NRBC#) 0.00 K/mm3 0.0-0.1 N MANUAL DIFF REQUIRED (test code = MDIFF) NO, ONLY SCAN NEEDED DIFFERENTIAL [id number] 10:19:00* Test Item Value Reference Range Interpretation Comments STAIN ACCEPTABILITY (test code = STN ACCEPTABLE) MORPHOLOGY COMMENT (test code = MOC) PLATELET ESTIMATE (test code = PLTEST) PLATELET MORPHOLOGY (test code = PLTMORPH) CBC W/AUTO [id number] 10:15:00* Test Item Value Reference Range Interpretation Comments WHITE BLOOD CELL (test code = WBC) 3.9 K/mm3 4.5-12.5 L RED BLOOD CELL (test code = RBC) 4.59 mill/mm3 3.7-5.2 N HEMOGLOBIN (test code = HGB) 10.7 gram/dL 11.5-15.5 L HEMATOCRIT (test code = HCT) 36.6 % 36.0-46.0 N MEAN CELL VOLUME (test code = MCV) 78.4 fL 80-98 L MEAN CELL HGB (test code = MCH) 23.3 picogram 27.0-33.0 L MEAN CELL HGB CONCETRATION (test code = MCHC) 29.7 gram/dL 33.0-36. 0 L RED CELL DISTRIBUTION WIDTH (test code = RDW) 17.6 % 11.6-16. 2 H RED CELL DISTRIBUTION WIDTH SD (test code = RDW-SD) 49.9 fL 37 .0-51.0 N PLATELET COUNT (test code = PLT) 117 K/mm3 150-450 L MEAN PLATELET VOLUME (test code = MPV) 11.7 fL 6.7-11.0 H NEUTROPHIL % (test code = NT%) 66.5 % 39.0-69.0 N IMMATURE GRANULOCYTE % (test code = IG%) 0.5 % 0.0-5.0 N LYMPHOCYTE % (test code = LY%) 22.3 % 25.0-55.0 L MONOCYTE % (test code = MO%) 8.2 % 0.0-10.0 N EOSINOPHIL % (test code = EO%) 1.5 % 0.0-5.0 N BASOPHIL % (test code = BA%) 1.0 % 0.0-1.0 N NUCLEATED RBC % (test code = NRBC%) 0.0 % 0-0 N NEUTROPHIL # (test code = NT#) 2.60 K/mm3 1.8-7.7 N IMMATURE GRANULOCYTE # (test code = IG#) 0.02 x10 3/uL 0-0.03 N LYMPHOCYTE # (test code = LY#) 0.87 K/mm3 1.0-5.0 L MONOCYTE # (test code = MO#) 0.32 K/mm3 0-0.8 N EOSINOPHIL # (test code = EO#) 0.06 K/mm3 0.0-0.5 N BASOPHIL # (test code = BA#) 0.04 K/mm3 0.0-0.2 N NUCLEATED RBC # (test code = NRBC#) 0.00 K/mm3 0.0-0.1 N MANUAL DIFF REQUIRED (test code = MDIFF) NO, ONLY SCAN NEEDED DIFFERENTIAL [id number] 10:15:00* Test Item Value Reference Range Interpretation Comments STAIN ACCEPTABILITY (test code = STN ACCEPTABLE) CABOT RINGS (test code = CAB) MORPHOLOGY COMMENT (test code = MOC) PLATELET ESTIMATE (test code = PLTEST) PLATELET MORPHOLOGY (test code = PLTMORPH) CBC W/AUTO [id number] 10:15:00* Test Item Value Reference Range Interpretation Comments WHITE BLOOD CELL (test code = WBC) 3.9 K/mm3 4.5-12.5 L RED BLOOD CELL (test code = RBC) 4.59 mill/mm3 3.7-5.2 N HEMOGLOBIN (test code = HGB) 10.7 gram/dL 11.5-15.5 L HEMATOCRIT (test code = HCT) 36.6 % 36.0-46.0 N MEAN CELL VOLUME (test code = MCV) 78.4 fL 80-98 L MEAN CELL HGB (test code = MCH) 23.3 picogram 27.0-33.0 L MEAN CELL HGB CONCETRATION (test code = MCHC) 29.7 gram/dL 33.0-36. 0 L RED CELL DISTRIBUTION WIDTH (test code = RDW) 17.6 % 11.6-16. 2 H RED CELL DISTRIBUTION WIDTH SD (test code = RDW-SD) 49.9 fL 37 .0-51.0 N PLATELET COUNT (test code = PLT) 117 K/mm3 150-450 L MEAN PLATELET VOLUME (test code = MPV) 11.7 fL 6.7-11.0 H NEUTROPHIL % (test code = NT%) 66.5 % 39.0-69.0 N IMMATURE GRANULOCYTE % (test code = IG%) 0.5 % 0.0-5.0 N LYMPHOCYTE % (test code = LY%) 22.3 % 25.0-55.0 L MONOCYTE % (test code = MO%) 8.2 % 0.0-10.0 N EOSINOPHIL % (test code = EO%) 1.5 % 0.0-5.0 N BASOPHIL % (test code = BA%) 1.0 % 0.0-1.0 N NUCLEATED RBC % (test code = NRBC%) 0.0 % 0-0 N NEUTROPHIL # (test code = NT#) 2.60 K/mm3 1.8-7.7 N IMMATURE GRANULOCYTE # (test code = IG#) 0.02 x10 3/uL 0-0.03 N LYMPHOCYTE # (test code = LY#) 0.87 K/mm3 1.0-5.0 L MONOCYTE # (test code = MO#) 0.32 K/mm3 0-0.8 N EOSINOPHIL # (test code = EO#) 0.06 K/mm3 0.0-0.5 N BASOPHIL # (test code = BA#) 0.04 K/mm3 0.0-0.2 N NUCLEATED RBC # (test code = NRBC#) 0.00 K/mm3 0.0-0.1 N MANUAL DIFF REQUIRED (test code = MDIFF) NO, ONLY SCAN NEEDED DIFFERENTIAL [id number] 10:15:00* Test Item Value Reference Range Interpretation Comments STAIN ACCEPTABILITY (test code = STN ACCEPTABLE) MORPHOLOGY COMMENT (test code = MOC) PLATELET ESTIMATE (test code = PLTEST) PLATELET MORPHOLOGY (test code = PLTMORPH) CBC W/AUTO [id number] 10:15:00* Test Item Value Reference Range Interpretation Comments WHITE BLOOD CELL (test code = WBC) 3.9 K/mm3 4.5-12.5 L RED BLOOD CELL (test code = RBC) 4.59 mill/mm3 3.7-5.2 N HEMOGLOBIN (test code = HGB) 10.7 gram/dL 11.5-15.5 L HEMATOCRIT (test code = HCT) 36.6 % 36.0-46.0 N MEAN CELL VOLUME (test code = MCV) 78.4 fL 80-98 L MEAN CELL HGB (test code = MCH) 23.3 picogram 27.0-33.0 L MEAN CELL HGB CONCETRATION (test code = MCHC) 29.7 gram/dL 33.0-36. 0 L RED CELL DISTRIBUTION WIDTH (test code = RDW) 17.6 % 11.6-16. 2 H RED CELL DISTRIBUTION WIDTH SD (test code = RDW-SD) 49.9 fL 37 .0-51.0 N PLATELET COUNT (test code = PLT) 117 K/mm3 150-450 L MEAN PLATELET VOLUME (test code = MPV) 11.7 fL 6.7-11.0 H NEUTROPHIL % (test code = NT%) 66.5 % 39.0-69.0 N IMMATURE GRANULOCYTE % (test code = IG%) 0.5 % 0.0-5.0 N LYMPHOCYTE % (test code = LY%) 22.3 % 25.0-55.0 L MONOCYTE % (test code = MO%) 8.2 % 0.0-10.0 N EOSINOPHIL % (test code = EO%) 1.5 % 0.0-5.0 N BASOPHIL % (test code = BA%) 1.0 % 0.0-1.0 N NUCLEATED RBC % (test code = NRBC%) 0.0 % 0-0 N NEUTROPHIL # (test code = NT#) 2.60 K/mm3 1.8-7.7 N IMMATURE GRANULOCYTE # (test code = IG#) 0.02 x10 3/uL 0-0.03 N LYMPHOCYTE # (test code = LY#) 0.87 K/mm3 1.0-5.0 L MONOCYTE # (test code = MO#) 0.32 K/mm3 0-0.8 N EOSINOPHIL # (test code = EO#) 0.06 K/mm3 0.0-0.5 N BASOPHIL # (test code = BA#) 0.04 K/mm3 0.0-0.2 N NUCLEATED RBC # (test code = NRBC#) 0.00 K/mm3 0.0-0.1 N MANUAL DIFF REQUIRED (test code = MDIFF) NO, ONLY SCAN NEEDED DIFFERENTIAL [id number] 10:15:00* Test Item Value Reference Range Interpretation Comments STAIN ACCEPTABILITY (test code = STN ACCEPTABLE) CABOT RINGS (test code = CAB) MORPHOLOGY COMMENT (test code = MOC) PLATELET ESTIMATE (test code = PLTEST) PLATELET MORPHOLOGY (test code = PLTMORPH) CBC W/AUTO [id number] 10:00:00* Test Item Value Reference Range Interpretation Comments WHITE BLOOD CELL (test code = WBC) K/mm3 4.5-12.5 RED BLOOD CELL (test code = RBC) mill/mm3 3.7-5.2 HEMOGLOBIN (test code = HGB) gram/dL 11.5-15.5 HEMATOCRIT (test code = HCT) 36.6 % 36.0-46.0 N MEAN CELL VOLUME (test code = MCV) fL 80-98 MEAN CELL HGB (test code = MCH) picogram 27.0-33.0 MEAN CELL HGB CONCETRATION (test code = MCHC) gram/dL 33.0-36. 0 RED CELL DISTRIBUTION WIDTH (test code = RDW) % 11.6-16. 2 RED CELL DISTRIBUTION WIDTH SD (test code = RDW-SD) fL 37 .0-51.0 PLATELET COUNT (test code = PLT) K/mm3 150-450 MEAN PLATELET VOLUME (test code = MPV) fL 6.7-11.0 NEUTROPHIL % (test code = NT%) % 39.0-69.0 IMMATURE GRANULOCYTE % (test code = IG%) % 0.0-5.0 LYMPHOCYTE % (test code = LY%) % 25.0-55.0 MONOCYTE % (test code = MO%) % 0.0-10.0 EOSINOPHIL % (test code = EO%) % 0.0-5.0 BASOPHIL % (test code = BA%) % 0.0-1.0 NEUTROPHIL # (test code = NT#) K/mm3 1.8-7.7 LYMPHOCYTE # (test code = LY#) K/mm3 1.0-5.0 MONOCYTE # (test code = MO#) K/mm3 0-0.8 EOSINOPHIL # (test code = EO#) K/mm3 0.0-0.5 BASOPHIL # (test code = BA#) K/mm3 0.0-0.2 [id number] 08:44:00* Test Item Value Reference Range Interpretation Comments GLUBED (test code = GLUBED) 305 mg/dL 74-106 H Performed by certified glue spreading machine operator at [facility] BASIC METABOLIC [id number] 08:31:00* Test Item Value Reference Range Interpretation Comments SODIUM (test code = NA) 131 mmol/L 136-145 L POTASSIUM (test code = K) 4.6 mmol/L 3.5-5.1 N CHLORIDE (test code = CL) 92.0 mmol/L 98-107 L CARBON DIOXIDE (test code = CO2) 29.0 mmol/L 21-32 N ANION GAP (test code = GAP) 14.6 10-20 N GLUCOSE (test code = GLU) 296 mg/dL 74-106 H BLOOD UREA NITROGEN (test code = BUN) 52 mg/dL 7-18 H RESULT VERIFIED BY REPEAT ANALYSIS GLOMERULAR FILTRATION RATE (test code = GFR) 45 mL/min >=60 Estimated GFR by using Modified MDRD formula.Chronic kidney disease is defined as either kidney damageor GFR <60 mL/min/1.73 m2 for >3 months. CREATININE (test code = CREAT) 1.20 mg/dL 0.55-1.02 H Note change in reference range due to change in reagent. BUN/CREATININE RATIO (test code = BUN/CREA) 43.3 10-20 H CALCIUM (test code = CA) 8.0 mg/dL 8.5-10.1 L [id number] 20:37:00* Test Item Value Reference Range Interpretation Comments GLUBED (test code = GLUBED) 200 mg/dL 74-106 H Performed by certified glue spreading machine operator at [facility] - XR CHEST 1 [id number] 18:15:00 FAX: Benjamin Francis MD [phone] [place]: St: ADM Name: KALYANI CATES [facility] : [birth year] 57 Age/S: 64/F [address] [facility] Unit #: [id number] Loc: [address] [place] [address] Phys: Benjamin Masters MD Acct: [id number] Dis Date: Status: ADM IN PHONE #: [phone] Exam Date: 09/03/2019 1615 FAX #: [phone] Reason: CHF EXAMS: CPT CODE: [id number] XR CHEST 1 V [id number] EXAM: Chest x-ray, one view; INFORMATION: CHF, hypoglycemia; IMPRESSION: 1. Mild cardiomegaly; otherwise, no evidence of active cardiopulmonary disease. 2. No significant change compared with a study from August 28, 2019. Location code: [facility] at 1815 Reported and signed by: Jc Bravo M.D. CC: Benjamin Masters Technologist: WENDIE COMER, RT(R); Jacquie Alcantara RT(R) Trnmtrd Date/Time/By: 09/03/2019 (1814) : By: Dannielle Orig Print D/T: S: 09/03/2019 (1817) PAGE 1 Signed Report [id number] 17:28:00* Test Item Value Reference Range Interpretation Comments GLUBED (test code = GLUBED) 103 mg/dL 74-106 N Performed by certified glue spreading machine operator at [facility] [id number] 12:43:00* Test Item Value Reference Range Interpretation Comments GLUBED (test code = GLUBED) 201 mg/dL 74-106 H Performed by certified glue spreading machine operator at [facility] B-TYPE NATRIURETIC [id number] 12:25:00* Test Item Value Reference Range Interpretation Comments B-TYPE NATRIURETIC PEPTIDE (test code = BNP) 20.62 pgram/mL 0-100 N SPECIMEN COMMENTS: add to AM labsBASIC METABOLIC [id number] 09:49:00* Test Item Value Reference Range Interpretation Comments SODIUM (test code = NA) 135 mmol/L 136-145 L POTASSIUM (test code = K) 3.9 mmol/L 3.5-5.1 N CHLORIDE (test code = CL) 96.0 mmol/L 98-107 L CARBON DIOXIDE (test code = CO2) 32.0 mmol/L 21-32 N ANION GAP (test code = GAP) 10.9 10-20 N GLUCOSE (test code = GLU) 282 mg/dL 74-106 H BLOOD UREA NITROGEN (test code = BUN) 35 mg/dL 7-18 H RESULT VERIFIED BY REPEAT ANALYSIS GLOMERULAR FILTRATION RATE (test code = GFR) 56 mL/min >=60 Estimated GFR by using Modified MDRD formula.Chronic kidney disease is defined as either kidney damageor GFR <60 mL/min/1.73 m2 for >3 months. CREATININE (test code = CREAT) 1.00 mg/dL 0.55-1.02 N Note change in reference range due to change in reagent. BUN/CREATININE RATIO (test code = BUN/CREA) 35.0 10-20 H CALCIUM (test code = CA) 8.3 mg/dL 8.5-10.1 L [id number] 08:23:00* Test Item Value Reference Range Interpretation Comments GLUBED (test code = GLUBED) 242 mg/dL 74-106 H Performed by certified glue spreading machine operator at [facility] [id number] 20:51:00* Test Item Value Reference Range Interpretation Comments GLUBED (test code = GLUBED) 155 mg/dL 74-106 H Performed by certified glue spreading machine operator at [facility] [id number] 16:25:00* Test Item Value Reference Range Interpretation Comments GLUBED (test code = GLUBED) 245 mg/dL 74-106 H Performed by certified glue spreading machine operator at [facility] [id number] 14:55:00* Test Item Value Reference Range Interpretation Comments MAGNESIUM (test code = MAG) 1.8 mg/dL 1.8-2.4 N COMPREHENSIVE METABOLIC [id number] 13:39:00* Test Item Value Reference Range Interpretation Comments SODIUM (test code = NA) 137 mmol/L 136-145 N POTASSIUM (test code = K) 4.2 mmol/L 3.5-5.1 N CHLORIDE (test code = CL) 99.0 mmol/L 98-107 N CARBON DIOXIDE (test code = CO2) 30.0 mmol/L 21-32 N ANION GAP (test code = GAP) 12.2 10-20 N GLUCOSE (test code = GLU) 228 mg/dL 74-106 H BLOOD UREA NITROGEN (test code = BUN) 27 mg/dL 7-18 H GLOMERULAR FILTRATION RATE (test code = GFR) 56 mL/min >=60 Estimated GFR by using Modified MDRD formula.Chronic kidney disease is defined as either kidney damageor GFR <60 mL/min/1.73 m2 for >3 months. CREATININE (test code = CREAT) 1.00 mg/dL 0.55-1.02 N Note change in reference range due to change in reagent. BUN/CREATININE RATIO (test code = BUN/CREA) 27.0 10-20 H TOTAL PROTEIN (test code = PROT) 6.3 gram/dL 6.4-8.2 L ALBUMIN (test code = ALB) 3.1 g/dL 3.4-5.0 L GLOBULIN (test code = GLOB) 3.2 gram/dL 2.7-4.2 N ALBUMIN/GLOBULIN RATIO (test code = A/G) 1.0 0.75-1.50 N CALCIUM (test code = CA) 8.6 mg/dL 8.5-10.1 N BILIRUBIN TOTAL (test code = BILT) 0.30 mg/dL 0.0-1.0 N SGOT/AST (test code = AST) 17 IUnit/L 15-37 N SGPT/ALT (test code = ALT) 18 IUnit/L 12-78 N ALKALINE PHOSPHATASE TOTAL (test code = ALKP) 100 IUnit/L 45-117 N Note change in reference range due to change in reagent. COMPREHENSIVE METABOLIC [id number] 13:31:00* Test Item Value Reference Range Interpretation Comments SODIUM (test code = NA) 137 mmol/L 136-145 N POTASSIUM (test code = K) 4.2 mmol/L 3.5-5.1 N CHLORIDE (test code = CL) 99.0 mmol/L 98-107 N CARBON DIOXIDE (test code = CO2) mmol/L 21-32 ANION GAP (test code = GAP) 10-20 GLUCOSE (test code = GLU) mg/dL 74-106 BLOOD UREA NITROGEN (test code = BUN) mg/dL 7-18 GLOMERULAR FILTRATION RATE (test code = GFR) mL/min >=60 CREATININE (test code = CREAT) mg/dL 0.55-1.02 BUN/CREATININE RATIO (test code = BUN/CREA) 10-20 TOTAL PROTEIN (test code = PROT) gram/dL 6.4-8.2 ALBUMIN (test code = ALB) g/dL 3.4-5.0 GLOBULIN (test code = GLOB) gram/dL 2.7-4.2 ALBUMIN/GLOBULIN RATIO (test code = A/G) 0.75-1.50 CALCIUM (test code = CA) mg/dL 8.5-10.1 BILIRUBIN TOTAL (test code = BILT) mg/dL 0.0-1.0 SGOT/AST (test code = AST) IUnit/L 15-37 SGPT/ALT (test code = ALT) IUnit/L 12-78 ALKALINE PHOSPHATASE TOTAL (test code = ALKP) IUnit/L 45-117 CBC W/AUTO [id number] 12:41:00* Test Item Value Reference Range Interpretation Comments WHITE BLOOD CELL (test code = WBC) 4.1 K/mm3 4.5-12.5 L RED BLOOD CELL (test code = RBC) 4.61 mill/mm3 3.7-5.2 N HEMOGLOBIN (test code = HGB) 10.8 gram/dL 11.5-15.5 L HEMATOCRIT (test code = HCT) 36.4 % 36.0-46.0 N MEAN CELL VOLUME (test code = MCV) 79.0 fL 80-98 L MEAN CELL HGB (test code = MCH) 23.4 picogram 27.0-33.0 L MEAN CELL HGB CONCETRATION (test code = MCHC) 29.7 gram/dL 33.0-36. 0 L RED CELL DISTRIBUTION WIDTH (test code = RDW) 17.3 % 11.6-16. 2 H RED CELL DISTRIBUTION WIDTH SD (test code = RDW-SD) 48.9 fL 37 .0-51.0 N PLATELET COUNT (test code = PLT) 124 K/mm3 150-450 L MEAN PLATELET VOLUME (test code = MPV) 10.4 fL 6.7-11.0 N NEUTROPHIL % (test code = NT%) 70.2 % 39.0-69.0 H IMMATURE GRANULOCYTE % (test code = IG%) 1.0 % 0.0-5.0 N LYMPHOCYTE % (test code = LY%) 16.5 % 25.0-55.0 L MONOCYTE % (test code = MO%) 8.7 % 0.0-10.0 N EOSINOPHIL % (test code = EO%) 2.4 % 0.0-5.0 N BASOPHIL % (test code = BA%) 1.2 % 0.0-1.0 H NUCLEATED RBC % (test code = NRBC%) 0.0 % 0-0 N NEUTROPHIL # (test code = NT#) 2.89 K/mm3 1.8-7.7 N IMMATURE GRANULOCYTE # (test code = IG#) 0.04 x10 3/uL 0-0.03 H LYMPHOCYTE # (test code = LY#) 0.68 K/mm3 1.0-5.0 L MONOCYTE # (test code = MO#) 0.36 K/mm3 0-0.8 N EOSINOPHIL # (test code = EO#) 0.10 K/mm3 0.0-0.5 N BASOPHIL # (test code = BA#) 0.05 K/mm3 0.0-0.2 N NUCLEATED RBC # (test code = NRBC#) 0.00 K/mm3 0.0-0.1 N CBC W/AUTO [id number] 12:32:00* Test Item Value Reference Range Interpretation Comments WHITE BLOOD CELL (test code = WBC) K/mm3 4.5-12.5 RED BLOOD CELL (test code = RBC) mill/mm3 3.7-5.2 HEMOGLOBIN (test code = HGB) gram/dL 11.5-15.5 HEMATOCRIT (test code = HCT) 36.4 % 36.0-46.0 N MEAN CELL VOLUME (test code = MCV) fL 80-98 MEAN CELL HGB (test code = MCH) picogram 27.0-33.0 MEAN CELL HGB CONCETRATION (test code = MCHC) gram/dL 33.0-36. 0 RED CELL DISTRIBUTION WIDTH (test code = RDW) % 11.6-16. 2 RED CELL DISTRIBUTION WIDTH SD (test code = RDW-SD) fL 37 .0-51.0 PLATELET COUNT (test code = PLT) K/mm3 150-450 MEAN PLATELET VOLUME (test code = MPV) fL 6.7-11.0 NEUTROPHIL % (test code = NT%) % 39.0-69.0 IMMATURE GRANULOCYTE % (test code = IG%) % 0.0-5.0 LYMPHOCYTE % (test code = LY%) % 25.0-55.0 MONOCYTE % (test code = MO%) % 0.0-10.0 EOSINOPHIL % (test code = EO%) % 0.0-5.0 BASOPHIL % (test code = BA%) % 0.0-1.0 NEUTROPHIL # (test code = NT#) K/mm3 1.8-7.7 LYMPHOCYTE # (test code = LY#) K/mm3 1.0-5.0 MONOCYTE # (test code = MO#) K/mm3 0-0.8 EOSINOPHIL # (test code = EO#) K/mm3 0.0-0.5 BASOPHIL # (test code = BA#) K/mm3 0.0-0.2 [id number] 11:40:00* Test Item Value Reference Range Interpretation Comments GLUBED (test code = GLUBED) 252 mg/dL 74-106 H Performed by certified glue spreading machine operator at [facility] [id number] 08:02:00* Test Item Value Reference Range Interpretation Comments GLUBED (test code = GLUBED) 252 mg/dL 74-106 H Performed by certified glue spreading machine operator at [facility] [id number] 20:04:00* Test Item Value Reference Range Interpretation Comments GLUBED (test code = GLUBED) 183 mg/dL 74-106 H Performed by certified glue spreading machine operator at [facility] [id number] 18:42:00* Test Item Value Reference Range Interpretation Comments GLUBED (test code = GLUBED) 218 mg/dL 74-106 H Performed by certified glue spreading machine operator at [facility] [id number] 12:24:00* Test Item Value Reference Range Interpretation Comments GLUBED (test code = GLUBED) 281 mg/dL 74-106 H Performed by certified glue spreading machine operator at [facility] [id number] 08:29:00* Test Item Value Reference Range Interpretation Comments GLUBED (test code = GLUBED) 293 mg/dL 74-106 H Performed by certified glue spreading machine operator at [facility] [id number] 20:21:00* Test Item Value Reference Range Interpretation Comments GLUBED (test code = GLUBED) 236 mg/dL 74-106 H Performed by certified glue spreading machine operator at [facility] [id number] 17:17:00* Test Item Value Reference Range Interpretation Comments GLUBED (test code = GLUBED) 311 mg/dL 74-106 H Performed by certified glue spreading machine operator at [facility] [id number] 12:22:00* Test Item Value Reference Range Interpretation Comments GLUBED (test code = GLUBED) 230 mg/dL 74-106 H Performed by certified glue spreading machine operator at [facility] [id number] 08:34:00* Test Item Value Reference Range Interpretation Comments GLUBED (test code = GLUBED) 301 mg/dL 74-106 H Performed by certified glue spreading machine operator at [facility] BASIC METABOLIC [id number] 06:15:00* Test Item Value Reference Range Interpretation Comments SODIUM (test code = NA) 139 mmol/L 136-145 N POTASSIUM (test code = K) 3.6 mmol/L 3.5-5.1 N CHLORIDE (test code = CL) 102.0 mmol/L 98-107 N CARBON DIOXIDE (test code = CO2) 29.0 mmol/L 21-32 N ANION GAP (test code = GAP) 11.6 10-20 N GLUCOSE (test code = GLU) 379 mg/dL 74-106 H BLOOD UREA NITROGEN (test code = BUN) 26 mg/dL 7-18 H GLOMERULAR FILTRATION RATE (test code = GFR) 50 mL/min >=60 Estimated GFR by using Modified MDRD formula.Chronic kidney disease is defined as either kidney damageor GFR <60 mL/min/1.73 m2 for >3 months. CREATININE (test code = CREAT) 1.10 mg/dL 0.55-1.02 H Note change in reference range due to change in reagent. BUN/CREATININE RATIO (test code = BUN/CREA) 23.6 10-20 H CALCIUM (test code = CA) 8.6 mg/dL 8.5-10.1 N BASIC METABOLIC [id number] 06:12:00* Test Item Value Reference Range Interpretation Comments SODIUM (test code = NA) 139 mmol/L 136-145 N POTASSIUM (test code = K) 3.6 mmol/L 3.5-5.1 N CHLORIDE (test code = CL) 102.0 mmol/L 98-107 N CARBON DIOXIDE (test code = CO2) mmol/L 21-32 ANION GAP (test code = GAP) 10-20 GLUCOSE (test code = GLU) mg/dL 74-106 BLOOD UREA NITROGEN (test code = BUN) mg/dL 7-18 GLOMERULAR FILTRATION RATE (test code = GFR) mL/min >=60 CREATININE (test code = CREAT) mg/dL 0.55-1.02 BUN/CREATININE RATIO (test code = BUN/CREA) 10-20 CALCIUM (test code = CA) 8.6 mg/dL 8.5-10.1 N [id number] 20:44:00* Test Item Value Reference Range Interpretation Comments GLUBED (test code = GLUBED) 304 mg/dL 74-106 H Performed by certified glue spreading machine operator at [facility] [id number] 17:42:00* Test Item Value Reference Range Interpretation Comments MAGNESIUM (test code = MAG) 1.8 mg/dL 1.8-2.4 N [id number] 17:25:00* Test Item Value Reference Range Interpretation Comments GLUBED (test code = GLUBED) 196 mg/dL 74-106 H Performed by certified glue spreading machine operator at [facility] [id number] 12:10:00* Test Item Value Reference Range Interpretation Comments GLUBED (test code = GLUBED) 223 mg/dL 74-106 H Performed by certified glue spreading machine operator at [facility] BASIC METABOLIC [id number] 07:59:00* Test Item Value Reference Range Interpretation Comments SODIUM (test code = NA) 139 mmol/L 136-145 N POTASSIUM (test code = K) 3.6 mmol/L 3.5-5.1 N CHLORIDE (test code = CL) 101.0 mmol/L 98-107 N CARBON DIOXIDE (test code = CO2) 30.0 mmol/L 21-32 N ANION GAP (test code = GAP) 11.6 10-20 N GLUCOSE (test code = GLU) 219 mg/dL 74-106 H BLOOD UREA NITROGEN (test code = BUN) 22 mg/dL 7-18 H RESULT VERIFIED BY REPEAT ANALYSIS GLOMERULAR FILTRATION RATE (test code = GFR) > 60 mL/min >=60 Estimated GFR by using Modified MDRD formula.Chronic kidney disease is defined as either kidney damageor GFR <60 mL/min/1.73 m2 for >3 months. CREATININE (test code = CREAT) 0.90 mg/dL 0.55-1.02 N Note change in reference range due to change in reagent. BUN/CREATININE RATIO (test code = BUN/CREA) 24.4 10-20 H CALCIUM (test code = CA) 8.6 mg/dL 8.5-10.1 N [id number] 07:59:00* Test Item Value Reference Range Interpretation Comments MAGNESIUM (test code = MAG) 1.8 mg/dL 1.8-2.4 N [id number] 07:54:00* Test Item Value Reference Range Interpretation Comments GLUBED (test code = GLUBED) 232 mg/dL 74-106 H Performed by certified glue spreading machine operator at [facility] BASIC METABOLIC [id number] 07:35:00* Test Item Value Reference Range Interpretation Comments SODIUM (test code = NA) 139 mmol/L 136-145 N POTASSIUM (test code = K) 3.6 mmol/L 3.5-5.1 N CHLORIDE (test code = CL) 101.0 mmol/L 98-107 N CARBON DIOXIDE (test code = CO2) mmol/L 21-32 ANION GAP (test code = GAP) 10-20 GLUCOSE (test code = GLU) mg/dL 74-106 BLOOD UREA NITROGEN (test code = BUN) mg/dL 7-18 GLOMERULAR FILTRATION RATE (test code = GFR) mL/min >=60 CREATININE (test code = CREAT) mg/dL 0.55-1.02 BUN/CREATININE RATIO (test code = BUN/CREA) 10-20 CALCIUM (test code = CA) mg/dL 8.5-10.1 [id number] 07:35:00* Test Item Value Reference Range Interpretation Comments MAGNESIUM (test code = MAG) mg/dL 1.8-2.4 [id number] 20:33:00* Test Item Value Reference Range Interpretation Comments GLUBED (test code = GLUBED) 161 mg/dL 74-106 H Performed by certified glue spreading machine operator at [facility] [id number] 16:15:00* Test Item Value Reference Range Interpretation Comments GLUBED (test code = GLUBED) 137 mg/dL 74-106 H Performed by certified glue spreading machine operator at [facility] [id number] 15:50:00 RUN DATE: 08/29/19 [facility] PAGE 1 RUN TIME: 1550 Specimen Inqui ry RUN USER: INTERFACE PATIENT: KALYANI TALAVERA ACCT #: [id number] LOC: [facility] U #: [id number] AGE/SX: 64/F ROOM: [facility] RE08/29/19REG DR: Benjamin Masters MD : 57 BED: A DIS: STATUS: ADM IN TLOC: SPEC #: [id number] RECD: 08/28/19 STATUS: SHREYA BROWN #: [id number] MARILEE: 08/27/19- SUBM DR: Emil Martinez MD ENTERED: 08/28/19 SP TYPE: STOMACH OTHR DR: Faizan Barron i, MD,Kb Garrett MD, MDORDERED: GROSS COPIES TO: Emil Martinez MD [address] [place] [address] Faizan Jennings MD [address], [address] [place] [address] Harry Gutierrez MD [address] [facility] [address] [place], [place] [id number] Kb Bradford MD [address] [address] PROCEDURES: GROSS (08/29/19- 145) TISSUES: ANTRAL BIOPSY - H-PYLORI CLINICAL HISTORY COLLECTION DATE: 08/27/19 DYSPHAGIA FINAL DIAGNOSIS Antrum, biop sy: 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 RADHA SS PERFORMED AT [facility] TRANSM[facility]ION SPECIALIST [address] [place], [place] [address] [phone] MICROS COPIC All of the stains, including any controls performed, stain beverlyiat evert. MICROSCOPIC PERFORMED AT [facility] PATHOLOGY [address] [place] [address] [phone] PERFORMING SITE Diagnosis performed at: [facility] [address] [place] [address] Signed SIGNATURE ON FILE Petty Lowe MD 08/29/19 1550 END OF REPORT [id number] 11:43:00* Test Item Value Reference Range Interpretation Comments GLUBED (test code = GLUBED) 318 mg/dL 74-106 H Performed by certified glue spreading machine operator at [facility] BASIC METABOLIC [id number] 09:27:00* Test Item Value Reference Range Interpretation Comments SODIUM (test code = NA) 136 mmol/L 136-145 N POTASSIUM (test code = K) 3.8 mmol/L 3.5-5.1 N CHLORIDE (test code = CL) 102.0 mmol/L 98-107 N CARBON DIOXIDE (test code = CO2) 26.0 mmol/L 21-32 N ANION GAP (test code = GAP) 11.8 10-20 N GLUCOSE (test code = GLU) 339 mg/dL 74-106 H BLOOD UREA NITROGEN (test code = BUN) 18 mg/dL 7-18 N GLOMERULAR FILTRATION RATE (test code = GFR) 56 mL/min >=60 Estimated GFR by using Modified MDRD formula.Chronic kidney disease is defined as either kidney damageor GFR <60 mL/min/1.73 m2 for >3 months. CREATININE (test code = CREAT) 1.00 mg/dL 0.55-1.02 N Note change in reference range due to change in reagent. BUN/CREATININE RATIO (test code = BUN/CREA) 17.8 10-20 N CALCIUM (test code = CA) 8.5 mg/dL 8.5-10.1 N BASIC METABOLIC [id number] 09:17:00* Test Item Value Reference Range Interpretation Comments SODIUM (test code = NA) 136 mmol/L 136-145 N POTASSIUM (test code = K) 3.8 mmol/L 3.5-5.1 N CHLORIDE (test code = CL) 102.0 mmol/L 98-107 N CARBON DIOXIDE (test code = CO2) mmol/L 21-32 ANION GAP (test code = GAP) 10-20 GLUCOSE (test code = GLU) mg/dL 74-106 BLOOD UREA NITROGEN (test code = BUN) mg/dL 7-18 GLOMERULAR FILTRATION RATE (test code = GFR) mL/min >=60 CREATININE (test code = CREAT) mg/dL 0.55-1.02 BUN/CREATININE RATIO (test code = BUN/CREA) 10-20 CALCIUM (test code = CA) mg/dL 8.5-10.1 [id number] 08:08:00* Test Item Value Reference Range Interpretation Comments GLUBED (test code = GLUBED) 291 mg/dL 74-106 H Performed by certified glue spreading machine operator at [facility] [id number] 20:52:00* Test Item Value Reference Range Interpretation Comments GLUBED (test code = GLUBED) 267 mg/dL 74-106 H Performed by certified glue spreading machine operator at [facility] [id number] 19:40:00* Test Item Value Reference Range Interpretation Comments TROPONIN-I (test code = TROPI) <0.015 ng/mL 0-0.045 N SPECIMEN COMMENTS: [id number] 19:27:00* Test Item Value Reference Range Interpretation Comments MAGNESIUM (test code = MAG) 1.6 mg/dL 1.8-2.4 L - XR ANKLE 3 + V [id number] 16:26:00 FAX: Benjamin Francis MD [phone] [place]: [address] St: ADM Name: KALYANI CATES [facility] : [birth year] 57 Age/S: 64/F [address] Unit #: [id number] Loc: V.3012 [place] [address] Phys: Benjamin Masters MD Acct: [id number] Dis Date: Status: ADM IN PHONE #: [phone] Exam Date: 08/28/2019 1600 FAX #: [phone] Reason: Left ankle injury EXAMS: CPT CODE: [id number] XR ANKLE 3 + [place] [address] REASON FOR EXAM: Left ankle injury EXAM ORDER DATE: 08/28/2019 12:00 AM Ordering: Benjamin Masters MD Attending:Benjamin Masters MD Location:[facility] PROCEDURE: - XR ANKLE 3 + V LT FINDIN GS: 3 views of the left ankle were obtained. The osseous structures are un remarkable in size and shape. The joint spaces are maintained. No evidence of fracture. The syndesmosis is intact. IMPRESSION: Mild soft tissue swelling in the lateral malleolus. at 5566 Reported and signed by: Pelon Moreno M.D. CC: Benjamin Masters Technologist: Jacquie Alcantara RT(R) Trnscrd Date/Time/By: 08/28/2019 (9482) : By: LeanneVTL Orig P rint D/T: S: 08/28/2019 (9063) PAGE 1 Signed Report [id number] 16:25:00* Test Item Value Reference Range Interpretation Comments GLUBED (test code = GLUBED) 241 mg/dL 74-106 H Performed by certified glue spreading machine operator at [facility] - XR CHEST 1 [id number] 16:25:00 FAX: Benjamin Francis MD [phone] [place]: St: ADM Name: KALYANI CATES [facility] : [birth year] Age/S: 64/F [address] [facility] Unit #: [id number] Loc: V.[address] [place] [address] Phys: Benjamin Masters MD Acct: [id number] Dis Date: Status: ADM IN PHONE #: [phone] Exam Date: 08/28/2019 1600 FAX #: [phone] Reason: CHF EXAMS: CPT CODE: [id number] XR CHEST 1 V 35901 REASON FOR EXAM: CHF EXAM ORDER DATE: 08/28/2019 12:00 AM Ordering: Benjamin Masters MD Attending:Benjamin Masters MD Location:[facility] PRO CEDURE: - XR CHEST 1 V COMPARISON: 08/27/2019 FINDING S: Portable AP frontal view of the chest obtained at 3:59 PM shows clear lungs without evidence of consolidation. There is no evidence of effusion. The heart size is minimally enlarged. Pulmonary vasculatures are minimally congested. IMPRESSION: Interval improvement in the congestive heart failure. at 1888 Reported and signed by: Pelon Moreno M.D. CC: Benjamin Masters Technologvincent st: Jacquie Alcantara RT(R) Trnscrd Date/Time/By: 08/28/2019 (1207) : By: LeanneVTL Orig Print D/T: S: 08/28/2019 (2882) PAGE 1 Signed Report [id number] 11:24:00* Test Item Value Reference Range Interpretation Comments GLUBED (test code = GLUBED) 289 mg/dL 74-106 H Performed by certified glue spreading machine operator at [facility] [id number] 07:51:00* Test Item Value Reference Range Interpretation Comments GLUBED (test code = GLUBED) 345 mg/dL 74-106 H Performed by certified glue spreading machine operator at [facility] BASIC METABOLIC [id number] 06:05:00* Test Item Value Reference Range Interpretation Comments SODIUM (test code = NA) 138 mmol/L 136-145 N POTASSIUM (test code = K) 4.2 mmol/L 3.5-5.1 N CHLORIDE (test code = CL) 104.0 mmol/L 98-107 N CARBON DIOXIDE (test code = CO2) 27.0 mmol/L 21-32 N ANION GAP (test code = GAP) 11.2 10-20 N GLUCOSE (test code = GLU) 385 mg/dL 74-106 H BLOOD UREA NITROGEN (test code = BUN) 16 mg/dL 7-18 N GLOMERULAR FILTRATION RATE (test code = GFR) > 60 mL/min >=60 Estimated GFR by using Modified MDRD formula.Chronic kidney disease is defined as either kidney damageor GFR <60 mL/min/1.73 m2 for >3 months. CREATININE (test code = CREAT) 0.90 mg/dL 0.55-1.02 N Note change in reference range due to change in reagent. BUN/CREATININE RATIO (test code = BUN/CREA) 17.8 10-20 N CALCIUM (test code = CA) 8.4 mg/dL 8.5-10.1 L CBC W/AUTO [id number] 06:00:00* Test Item Value Reference Range Interpretation Comments WHITE BLOOD CELL (test code = WBC) 4.7 K/mm3 4.5-12.5 N RED BLOOD CELL (test code = RBC) 4.22 mill/mm3 3.7-5.2 N HEMOGLOBIN (test code = HGB) 9.8 gram/dL 11.5-15.5 L HEMATOCRIT (test code = HCT) 33.6 % 36.0-46.0 L MEAN CELL VOLUME (test code = MCV) 79.6 fL 80-98 L MEAN CELL HGB (test code = MCH) 23.2 picogram 27.0-33.0 L MEAN CELL HGB CONCETRATION (test code = MCHC) 29.2 gram/dL 33.0-36. 0 L RED CELL DISTRIBUTION WIDTH (test code = RDW) 17.2 % 11.6-16. 2 H RED CELL DISTRIBUTION WIDTH SD (test code = RDW-SD) 48.2 fL 37 .0-51.0 N PLATELET COUNT (test code = PLT) 161 K/mm3 150-450 N MEAN PLATELET VOLUME (test code = MPV) 10.6 fL 6.7-11.0 N NEUTROPHIL % (test code = NT%) 64.6 % 39.0-69.0 N IMMATURE GRANULOCYTE % (test code = IG%) 1.3 % 0.0-5.0 N LYMPHOCYTE % (test code = LY%) 22.4 % 25.0-55.0 L MONOCYTE % (test code = MO%) 6.5 % 0.0-10.0 N EOSINOPHIL % (test code = EO%) 4.3 % 0.0-5.0 N BASOPHIL % (test code = BA%) 0.9 % 0.0-1.0 N NUCLEATED RBC % (test code = NRBC%) 0.0 % 0-0 N NEUTROPHIL # (test code = NT#) 3.01 K/mm3 1.8-7.7 N IMMATURE GRANULOCYTE # (test code = IG#) 0.06 x10 3/uL 0-0.03 H LYMPHOCYTE # (test code = LY#) 1.04 K/mm3 1.0-5.0 N MONOCYTE # (test code = MO#) 0.30 K/mm3 0-0.8 N EOSINOPHIL # (test code = EO#) 0.20 K/mm3 0.0-0.5 N BASOPHIL # (test code = BA#) 0.04 K/mm3 0.0-0.2 N NUCLEATED RBC # (test code = NRBC#) 0.00 K/mm3 0.0-0.1 N MANUAL DIFF REQUIRED (test code = MDIFF) NO, ONLY SCAN NEEDED DIFFERENTIAL [id number] 06:00:00* Test Item Value Reference Range Interpretation Comments STAIN ACCEPTABILITY (test code = STN ACCEPTABLE) STAIN ACCEPTABLE ANISOCYTOSIS (test code = ANISO) 2+ MICROCYTOSIS (test code = MICR) 2+ PLATELET ESTIMATE (test code = PLTEST) ADEQUATE PLATELET MORPHOLOGY (test code = PLTMORPH) NORMAL BASIC METABOLIC [id number] 05:57:00* Test Item Value Reference Range Interpretation Comments SODIUM (test code = NA) 138 mmol/L 136-145 N POTASSIUM (test code = K) 4.2 mmol/L 3.5-5.1 N CHLORIDE (test code = CL) 104.0 mmol/L 98-107 N CARBON DIOXIDE (test code = CO2) mmol/L 21-32 ANION GAP (test code = GAP) 10-20 GLUCOSE (test code = GLU) mg/dL 74-106 BLOOD UREA NITROGEN (test code = BUN) mg/dL 7-18 GLOMERULAR FILTRATION RATE (test code = GFR) mL/min >=60 CREATININE (test code = CREAT) mg/dL 0.55-1.02 BUN/CREATININE RATIO (test code = BUN/CREA) 10-20 CALCIUM (test code = CA) mg/dL 8.5-10.1 CBC W/AUTO [id number] 05:35:00* Test Item Value Reference Range Interpretation Comments WHITE BLOOD CELL (test code = WBC) 4.7 K/mm3 4.5-12.5 N RED BLOOD CELL (test code = RBC) 4.22 mill/mm3 3.7-5.2 N HEMOGLOBIN (test code = HGB) 9.8 gram/dL 11.5-15.5 L HEMATOCRIT (test code = HCT) 33.6 % 36.0-46.0 L MEAN CELL VOLUME (test code = MCV) 79.6 fL 80-98 L MEAN CELL HGB (test code = MCH) 23.2 picogram 27.0-33.0 L MEAN CELL HGB CONCETRATION (test code = MCHC) 29.2 gram/dL 33.0-36. 0 L RED CELL DISTRIBUTION WIDTH (test code = RDW) 17.2 % 11.6-16. 2 H RED CELL DISTRIBUTION WIDTH SD (test code = RDW-SD) 48.2 fL 37 .0-51.0 N PLATELET COUNT (test code = PLT) 161 K/mm3 150-450 N MEAN PLATELET VOLUME (test code = MPV) 10.6 fL 6.7-11.0 N NEUTROPHIL % (test code = NT%) 64.6 % 39.0-69.0 N IMMATURE GRANULOCYTE % (test code = IG%) 1.3 % 0.0-5.0 N LYMPHOCYTE % (test code = LY%) 22.4 % 25.0-55.0 L MONOCYTE % (test code = MO%) 6.5 % 0.0-10.0 N EOSINOPHIL % (test code = EO%) 4.3 % 0.0-5.0 N BASOPHIL % (test code = BA%) 0.9 % 0.0-1.0 N NUCLEATED RBC % (test code = NRBC%) 0.0 % 0-0 N NEUTROPHIL # (test code = NT#) 3.01 K/mm3 1.8-7.7 N IMMATURE GRANULOCYTE # (test code = IG#) 0.06 x10 3/uL 0-0.03 H LYMPHOCYTE # (test code = LY#) 1.04 K/mm3 1.0-5.0 N MONOCYTE # (test code = MO#) 0.30 K/mm3 0-0.8 N EOSINOPHIL # (test code = EO#) 0.20 K/mm3 0.0-0.5 N BASOPHIL # (test code = BA#) 0.04 K/mm3 0.0-0.2 N NUCLEATED RBC # (test code = NRBC#) 0.00 K/mm3 0.0-0.1 N MANUAL DIFF REQUIRED (test code = MDIFF) NO, ONLY SCAN NEEDED DIFFERENTIAL [id number] 05:35:00* Test Item Value Reference Range Interpretation Comments STAIN ACCEPTABILITY (test code = STN ACCEPTABLE) CABOT RINGS (test code = CAB) MORPHOLOGY COMMENT (test code = MOC) PLATELET ESTIMATE (test code = PLTEST) PLATELET MORPHOLOGY (test code = PLTMORPH) CBC W/AUTO [id number] 05:35:00* Test Item Value Reference Range Interpretation Comments WHITE BLOOD CELL (test code = WBC) 4.7 K/mm3 4.5-12.5 N RED BLOOD CELL (test code = RBC) 4.22 mill/mm3 3.7-5.2 N HEMOGLOBIN (test code = HGB) 9.8 gram/dL 11.5-15.5 L HEMATOCRIT (test code = HCT) 33.6 % 36.0-46.0 L MEAN CELL VOLUME (test code = MCV) 79.6 fL 80-98 L MEAN CELL HGB (test code = MCH) 23.2 picogram 27.0-33.0 L MEAN CELL HGB CONCETRATION (test code = MCHC) 29.2 gram/dL 33.0-36. 0 L RED CELL DISTRIBUTION WIDTH (test code = RDW) 17.2 % 11.6-16. 2 H RED CELL DISTRIBUTION WIDTH SD (test code = RDW-SD) 48.2 fL 37 .0-51.0 N PLATELET COUNT (test code = PLT) 161 K/mm3 150-450 N MEAN PLATELET VOLUME (test code = MPV) 10.6 fL 6.7-11.0 N NEUTROPHIL % (test code = NT%) 64.6 % 39.0-69.0 N IMMATURE GRANULOCYTE % (test code = IG%) 1.3 % 0.0-5.0 N LYMPHOCYTE % (test code = LY%) 22.4 % 25.0-55.0 L MONOCYTE % (test code = MO%) 6.5 % 0.0-10.0 N EOSINOPHIL % (test code = EO%) 4.3 % 0.0-5.0 N BASOPHIL % (test code = BA%) 0.9 % 0.0-1.0 N NUCLEATED RBC % (test code = NRBC%) 0.0 % 0-0 N NEUTROPHIL # (test code = NT#) 3.01 K/mm3 1.8-7.7 N IMMATURE GRANULOCYTE # (test code = IG#) 0.06 x10 3/uL 0-0.03 H LYMPHOCYTE # (test code = LY#) 1.04 K/mm3 1.0-5.0 N MONOCYTE # (test code = MO#) 0.30 K/mm3 0-0.8 N EOSINOPHIL # (test code = EO#) 0.20 K/mm3 0.0-0.5 N BASOPHIL # (test code = BA#) 0.04 K/mm3 0.0-0.2 N NUCLEATED RBC # (test code = NRBC#) 0.00 K/mm3 0.0-0.1 N MANUAL DIFF REQUIRED (test code = MDIFF) NO, ONLY SCAN NEEDED DIFFERENTIAL [id number] 05:35:00* Test Item Value Reference Range Interpretation Comments STAIN ACCEPTABILITY (test code = STN ACCEPTABLE) MORPHOLOGY COMMENT (test code = MOC) PLATELET ESTIMATE (test code = PLTEST) PLATELET MORPHOLOGY (test code = PLTMORPH) CBC W/AUTO [id number] 05:35:00* Test Item Value Reference Range Interpretation Comments WHITE BLOOD CELL (test code = WBC) 4.7 K/mm3 4.5-12.5 N RED BLOOD CELL (test code = RBC) 4.22 mill/mm3 3.7-5.2 N HEMOGLOBIN (test code = HGB) 9.8 gram/dL 11.5-15.5 L HEMATOCRIT (test code = HCT) 33.6 % 36.0-46.0 L MEAN CELL VOLUME (test code = MCV) 79.6 fL 80-98 L MEAN CELL HGB (test code = MCH) 23.2 picogram 27.0-33.0 L MEAN CELL HGB CONCETRATION (test code = MCHC) 29.2 gram/dL 33.0-36. 0 L RED CELL DISTRIBUTION WIDTH (test code = RDW) 17.2 % 11.6-16. 2 H RED CELL DISTRIBUTION WIDTH SD (test code = RDW-SD) 48.2 fL 37 .0-51.0 N PLATELET COUNT (test code = PLT) 161 K/mm3 150-450 N MEAN PLATELET VOLUME (test code = MPV) 10.6 fL 6.7-11.0 N NEUTROPHIL % (test code = NT%) 64.6 % 39.0-69.0 N IMMATURE GRANULOCYTE % (test code = IG%) 1.3 % 0.0-5.0 N LYMPHOCYTE % (test code = LY%) 22.4 % 25.0-55.0 L MONOCYTE % (test code = MO%) 6.5 % 0.0-10.0 N EOSINOPHIL % (test code = EO%) 4.3 % 0.0-5.0 N BASOPHIL % (test code = BA%) 0.9 % 0.0-1.0 N NUCLEATED RBC % (test code = NRBC%) 0.0 % 0-0 N NEUTROPHIL # (test code = NT#) 3.01 K/mm3 1.8-7.7 N IMMATURE GRANULOCYTE # (test code = IG#) 0.06 x10 3/uL 0-0.03 H LYMPHOCYTE # (test code = LY#) 1.04 K/mm3 1.0-5.0 N MONOCYTE # (test code = MO#) 0.30 K/mm3 0-0.8 N EOSINOPHIL # (test code = EO#) 0.20 K/mm3 0.0-0.5 N BASOPHIL # (test code = BA#) 0.04 K/mm3 0.0-0.2 N NUCLEATED RBC # (test code = NRBC#) 0.00 K/mm3 0.0-0.1 N MANUAL DIFF REQUIRED (test code = MDIFF) NO, ONLY SCAN NEEDED DIFFERENTIAL [id number] 05:35:00* Test Item Value Reference Range Interpretation Comments STAIN ACCEPTABILITY (test code = STN ACCEPTABLE) MORPHOLOGY COMMENT (test code = MOC) PLATELET ESTIMATE (test code = PLTEST) PLATELET MORPHOLOGY (test code = PLTMORPH) CBC W/AUTO [id number] 05:35:00* Test Item Value Reference Range Interpretation Comments WHITE BLOOD CELL (test code = WBC) 4.7 K/mm3 4.5-12.5 N RED BLOOD CELL (test code = RBC) 4.22 mill/mm3 3.7-5.2 N HEMOGLOBIN (test code = HGB) 9.8 gram/dL 11.5-15.5 L HEMATOCRIT (test code = HCT) 33.6 % 36.0-46.0 L MEAN CELL VOLUME (test code = MCV) 79.6 fL 80-98 L MEAN CELL HGB (test code = MCH) 23.2 picogram 27.0-33.0 L MEAN CELL HGB CONCETRATION (test code = MCHC) 29.2 gram/dL 33.0-36. 0 L RED CELL DISTRIBUTION WIDTH (test code = RDW) 17.2 % 11.6-16. 2 H RED CELL DISTRIBUTION WIDTH SD (test code = RDW-SD) 48.2 fL 37 .0-51.0 N PLATELET COUNT (test code = PLT) 161 K/mm3 150-450 N MEAN PLATELET VOLUME (test code = MPV) 10.6 fL 6.7-11.0 N NEUTROPHIL % (test code = NT%) 64.6 % 39.0-69.0 N IMMATURE GRANULOCYTE % (test code = IG%) 1.3 % 0.0-5.0 N LYMPHOCYTE % (test code = LY%) 22.4 % 25.0-55.0 L MONOCYTE % (test code = MO%) 6.5 % 0.0-10.0 N EOSINOPHIL % (test code = EO%) 4.3 % 0.0-5.0 N BASOPHIL % (test code = BA%) 0.9 % 0.0-1.0 N NUCLEATED RBC % (test code = NRBC%) 0.0 % 0-0 N NEUTROPHIL # (test code = NT#) 3.01 K/mm3 1.8-7.7 N IMMATURE GRANULOCYTE # (test code = IG#) 0.06 x10 3/uL 0-0.03 H LYMPHOCYTE # (test code = LY#) 1.04 K/mm3 1.0-5.0 N MONOCYTE # (test code = MO#) 0.30 K/mm3 0-0.8 N EOSINOPHIL # (test code = EO#) 0.20 K/mm3 0.0-0.5 N BASOPHIL # (test code = BA#) 0.04 K/mm3 0.0-0.2 N NUCLEATED RBC # (test code = NRBC#) 0.00 K/mm3 0.0-0.1 N MANUAL DIFF REQUIRED (test code = MDIFF) NO, ONLY SCAN NEEDED DIFFERENTIAL [id number] 05:35:00* Test Item Value Reference Range Interpretation Comments STAIN ACCEPTABILITY (test code = STN ACCEPTABLE) CABOT RINGS (test code = CAB) MORPHOLOGY COMMENT (test code = MOC) PLATELET ESTIMATE (test code = PLTEST) PLATELET MORPHOLOGY (test code = PLTMORPH) [id number] 20:01:00* Test Item Value Reference Range Interpretation Comments GLUBED (test code = GLUBED) 220 mg/dL 74-106 H Performed by certified glue spreading machine operator at [facility] [id number] 19:18:00* Test Item Value Reference Range Interpretation Comments GLYCOSYLATED HEMOGLOBIN (HA1C) (test code = GLYHGB) 9.6 % HbA1 SUGGESTED DIAGNOSIS: HbA1C (%) Diabetic >6.4Prediabetes 5.7 - 6.4Normal <5.7 ESTIMATED AVERAGE GLUCOSE (test code = EAG) 229 MG/DL - XR CHEST 1 [id number] 18:54:00 FAX: Loan Cortez NP [phone] [place]: St: ADM FAX: Benjamin Francis MD [phone] Name: KALYANI TALAVERA [facility] : 1955 Age/S: 64/F [address] Unit #: [id number] Loc: V.3012 [place] [address] Phys: Loan Cortez NP Acct: [id number] Dis Date: Status: ADM IN PHONE #: [phone] Exam Date: 08/27/2019 1845 FAX #: [phone] Reason: shortness of breath EXAMS: CPT CODE: [id number] XR CHEST 1 V [id number] REASON FOR EXAM: shortness of breath EXAM ORDER DATE: 08/27/2019 6:18 PM Ordering: Loan Cortez NP Attending:Benjamin Masters MD Location: PROCEDURE: - XR CHEST 1 V COMPARISON: 06/29/2019 FINDINGS: Portable AP frontal view of the chest obtained at 6:46 PM shows diffuse airspace opacity. There is no evidence of effusion. The heart size is minimally enlarged. Pulmonary vasculatures are minimally congested. IMPRESSION: Hypoaerated lungs with congestive heart failure and pulmonary edema at 1854 Reported and signed by: Pelon Moreno M.D. CC: Loan Perez NP; Benjamin Masters Technologist: Frances Galloway) Trnscrd Date/Time/By: 08/27/2019 (1853) : By: LeanneVTL Orig Print D/T: S: 08/27/2019 (1856) PAGE 1 Signed Report [id number] 18:35:00* Test Item Value Reference Range Interpretation Comments GLUBED (test code = GLUBED) 201 mg/dL 74-106 H Performed by certified glue spreading machine operator at [facility] T4 [id number] 18:03:00* Test Item Value Reference Range Interpretation Comments T4 FREE (test code = T4F) 1.10 ng/dL 0.76-1.46 N THYROID STIMULATING [id number] 18:03:00* Test Item Value Reference Range Interpretation Comments THYROID STIMULATING HORMONE (test code = TSH) 1.260 uIU/mL 0.36-3.7 4 N TSH REFERENCE RANGES: EUTHYROID: 0.35 - 4.3 mIU/mL HYPO : > 5.5 mIU/mL HYPER : < 0.35 mIU/mL [id number] 16:50:00* Test Item Value Reference Range Interpretation Comments GLUBED (test code = GLUBED) 217 mg/dL 74-106 H Performed by certified glue spreading machine operator at [facility] [id number] 12:15:00* Test Item Value Reference Range Interpretation Comments GLUBED (test code = GLUBED) 272 mg/dL 74-106 H Performed by certified glue spreading machine operator at [facility] [id number] 08:14:00* Test Item Value Reference Range Interpretation Comments GLUBED (test code = GLUBED) 322 mg/dL 74-106 H Performed by certified glue spreading machine operator at [facility] [id number] 04:01:00* Test Item Value Reference Range Interpretation Comments GLUBED (test code = GLUBED) 329 mg/dL 74-106 H Performed by certified glue spreading machine operator at [facility] CBC W/AUTO [id number] 23:42:00* Test Item Value Reference Range Interpretation Comments WHITE BLOOD CELL (test code = WBC) 5.4 K/mm3 4.5-12.5 N RED BLOOD CELL (test code = RBC) 4.50 mill/mm3 3.7-5.2 N HEMOGLOBIN (test code = HGB) 10.3 gram/dL 11.5-15.5 L HEMATOCRIT (test code = HCT) 36.5 % 36.0-46.0 N MEAN CELL VOLUME (test code = MCV) 81.1 fL 80-98 N MEAN CELL HGB (test code = MCH) 22.9 picogram 27.0-33.0 L MEAN CELL HGB CONCETRATION (test code = MCHC) 28.2 gram/dL 33.0-36. 0 L RED CELL DISTRIBUTION WIDTH (test code = RDW) 17.5 % 11.6-16. 2 H RED CELL DISTRIBUTION WIDTH SD (test code = RDW-SD) 49.6 fL 37 .0-51.0 N PLATELET COUNT (test code = PLT) 181 K/mm3 150-450 N MEAN PLATELET VOLUME (test code = MPV) 10.5 fL 6.7-11.0 N NEUTROPHIL % (test code = NT%) 65.0 % 39.0-69.0 N IMMATURE GRANULOCYTE % (test code = IG%) 1.8 % 0.0-5.0 N LYMPHOCYTE % (test code = LY%) 21.5 % 25.0-55.0 L MONOCYTE % (test code = MO%) 6.4 % 0.0-10.0 N EOSINOPHIL % (test code = EO%) 4.4 % 0.0-5.0 N BASOPHIL % (test code = BA%) 0.9 % 0.0-1.0 N NUCLEATED RBC % (test code = NRBC%) 0.6 % 0-0 H NEUTROPHIL # (test code = NT#) 3.53 K/mm3 1.8-7.7 N IMMATURE GRANULOCYTE # (test code = IG#) 0.10 x10 3/uL 0-0.03 H LYMPHOCYTE # (test code = LY#) 1.17 K/mm3 1.0-5.0 N MONOCYTE # (test code = MO#) 0.35 K/mm3 0-0.8 N EOSINOPHIL # (test code = EO#) 0.24 K/mm3 0.0-0.5 N BASOPHIL # (test code = BA#) 0.05 K/mm3 0.0-0.2 N NUCLEATED RBC # (test code = NRBC#) 0.03 K/mm3 0.0-0.1 N MANUAL DIFF REQUIRED (test code = MDIFF) NO, ONLY SCAN NEEDED DIFFERENTIAL [id number] 23:42:00* Test Item Value Reference Range Interpretation Comments STAIN ACCEPTABILITY (test code = STN ACCEPTABLE) STAIN ACCEPTABLE ANISOCYTOSIS (test code = ANISO) 2+ MICROCYTOSIS (test code = MICR) 2+ PLATELET ESTIMATE (test code = PLTEST) ADEQUATE PLATELET MORPHOLOGY (test code = PLTMORPH) NORMAL COMPREHENSIVE METABOLIC [id number] 23:14:00* Test Item Value Reference Range Interpretation Comments SODIUM (test code = NA) 137 mmol/L 136-145 N POTASSIUM (test code = K) 4.2 mmol/L 3.5-5.1 N CHLORIDE (test code = CL) 101.0 mmol/L 98-107 N CARBON DIOXIDE (test code = CO2) 29.0 mmol/L 21-32 N ANION GAP (test code = GAP) 11.2 10-20 N GLUCOSE (test code = GLU) 628 mg/dL 74-106 Re sults called to [id number] by [email or web address] 08/26/19 2313Critical results verified and read back by Nurse? YES BLOOD UREA NITROGEN (test code = BUN) 24 mg/dL 7-18 H GLOMERULAR FILTRATION RATE (test code = GFR) 45 mL/min >=60 Estimated GFR by using Modified MDRD formula.Chronic kidney disease is defined as either kidney damageor GFR <60 mL/min/1.73 m2 for >3 months. CREATININE (test code = CREAT) 1.20 mg/dL 0.55-1.02 H Note change in reference range due to change in reagent. BUN/CREATININE RATIO (test code = BUN/CREA) 20.0 10-20 N TOTAL PROTEIN (test code = PROT) 6.7 gram/dL 6.4-8.2 N ALBUMIN (test code = ALB) 3.1 g/dL 3.4-5.0 L GLOBULIN (test code = GLOB) 3.6 gram/dL 2.7-4.2 N ALBUMIN/GLOBULIN RATIO (test code = A/G) 0.9 0.75-1.50 N CALCIUM (test code = CA) 8.5 mg/dL 8.5-10.1 N BILIRUBIN TOTAL (test code = BILT) 0.30 mg/dL 0.0-1.0 N SGOT/AST (test code = AST) 6 IUnit/L 15-37 L SGPT/ALT (test code = ALT) 27 IUnit/L 12-78 N ALKALINE PHOSPHATASE TOTAL (test code = ALKP) 104 IUnit/L 45-117 N Note change in reference range due to change in reagent. URINALYSIS [id number] 23:08:00* Test Item Value Reference Range Interpretation Comments UA COLOR (test code = COLU) COLORLESS YELLOW A UA APPEARANCE (test code = APPU) CLEAR CLEAR UA GLUCOSE DIPSTICK (test code = DGLUU) >1000 (4+) mg/dL NEGATIVE UA BILIRUBIN DIPSTICK (test code = BILU) NEGATIVE mg/dL NEGATIVE UA KETONE DIPSTICK (test code = KETU) NEGATIVE mg/dL NEGATIVE UA SPECIFIC GRAVITY (test code = SGU) 1.028 1.001-1.035 UA BLOOD DIPSTICK (test code = MONICA) Negative mg/dL NEGATIVE UA PH DIPSTICK (test code = VIVEK) 6.5 5.0-8.0 UA PROTEIN DIPSTICK (test code = PROU) NEGATIVE mg/dL NEGATIVE UA UROBILINIOGEN DIPSTICK (test code = URO) Normal mg/dL NEGATIVE UA NITRITE DIPSTICK (test code = GOYO) NEGATIVE NEGATIVE UA LEUKOCYTE ESTERASE W REFLEX (test code = LEUUR) NEGATIVE Kendra/uL NEGATIVE UA WBC (test code = WBCU) 0-5 per HPF 0-5 UA RBC (test code = RBCU) 0-2 #/HPF 0-5 UA EPITHELIAL CELLS (test code = EPIU) FEW per HPF FEW UA BACTERIA (test code = BACU) NONE SEEN #/HPF NONE Urine Source? Clean CatchCOMPREHENSIVE METABOLIC [id number] 23:02:00* Test Item Value Reference Range Interpretation Comments SODIUM (test code = NA) 137 mmol/L 136-145 N POTASSIUM (test code = K) 4.2 mmol/L 3.5-5.1 N CHLORIDE (test code = CL) 101.0 mmol/L 98-107 N CARBON DIOXIDE (test code = CO2) mmol/L 21-32 ANION GAP (test code = GAP) 10-20 GLUCOSE (test code = GLU) mg/dL 74-106 BLOOD UREA NITROGEN (test code = BUN) mg/dL 7-18 GLOMERULAR FILTRATION RATE (test code = GFR) mL/min >=60 CREATININE (test code = CREAT) mg/dL 0.55-1.02 BUN/CREATININE RATIO (test code = BUN/CREA) 10-20 TOTAL PROTEIN (test code = PROT) gram/dL 6.4-8.2 ALBUMIN (test code = ALB) g/dL 3.4-5.0 GLOBULIN (test code = GLOB) gram/dL 2.7-4.2 ALBUMIN/GLOBULIN RATIO (test code = A/G) 0.75-1.50 CALCIUM (test code = CA) mg/dL 8.5-10.1 BILIRUBIN TOTAL (test code = BILT) mg/dL 0.0-1.0 SGOT/AST (test code = AST) IUnit/L 15-37 SGPT/ALT (test code = ALT) IUnit/L 12-78 ALKALINE PHOSPHATASE TOTAL (test code = ALKP) IUnit/L 45-117 CBC W/AUTO [id number] 22:58:00* Test Item Value Reference Range Interpretation Comments WHITE BLOOD CELL (test code = WBC) 5.4 K/mm3 4.5-12.5 N RED BLOOD CELL (test code = RBC) 4.50 mill/mm3 3.7-5.2 N HEMOGLOBIN (test code = HGB) 10.3 gram/dL 11.5-15.5 L HEMATOCRIT (test code = HCT) 36.5 % 36.0-46.0 N MEAN CELL VOLUME (test code = MCV) 81.1 fL 80-98 N MEAN CELL HGB (test code = MCH) 22.9 picogram 27.0-33.0 L MEAN CELL HGB CONCETRATION (test code = MCHC) 28.2 gram/dL 33.0-36. 0 L RED CELL DISTRIBUTION WIDTH (test code = RDW) 17.5 % 11.6-16. 2 H RED CELL DISTRIBUTION WIDTH SD (test code = RDW-SD) 49.6 fL 37 .0-51.0 N PLATELET COUNT (test code = PLT) 181 K/mm3 150-450 N MEAN PLATELET VOLUME (test code = MPV) 10.5 fL 6.7-11.0 N NEUTROPHIL % (test code = NT%) 65.0 % 39.0-69.0 N IMMATURE GRANULOCYTE % (test code = IG%) 1.8 % 0.0-5.0 N LYMPHOCYTE % (test code = LY%) 21.5 % 25.0-55.0 L MONOCYTE % (test code = MO%) 6.4 % 0.0-10.0 N EOSINOPHIL % (test code = EO%) 4.4 % 0.0-5.0 N BASOPHIL % (test code = BA%) 0.9 % 0.0-1.0 N NUCLEATED RBC % (test code = NRBC%) 0.6 % 0-0 H NEUTROPHIL # (test code = NT#) 3.53 K/mm3 1.8-7.7 N IMMATURE GRANULOCYTE # (test code = IG#) 0.10 x10 3/uL 0-0.03 H LYMPHOCYTE # (test code = LY#) 1.17 K/mm3 1.0-5.0 N MONOCYTE # (test code = MO#) 0.35 K/mm3 0-0.8 N EOSINOPHIL # (test code = EO#) 0.24 K/mm3 0.0-0.5 N BASOPHIL # (test code = BA#) 0.05 K/mm3 0.0-0.2 N NUCLEATED RBC # (test code = NRBC#) 0.03 K/mm3 0.0-0.1 N MANUAL DIFF REQUIRED (test code = MDIFF) NO, ONLY SCAN NEEDED DIFFERENTIAL [id number] 22:58:00* Test Item Value Reference Range Interpretation Comments STAIN ACCEPTABILITY (test code = STN ACCEPTABLE) CABOT RINGS (test code = CAB) MORPHOLOGY COMMENT (test code = MOC) PLATELET ESTIMATE (test code = PLTEST) PLATELET MORPHOLOGY (test code = PLTMORPH) CBC W/AUTO [id number] 22:58:00* Test Item Value Reference Range Interpretation Comments WHITE BLOOD CELL (test code = WBC) 5.4 K/mm3 4.5-12.5 N RED BLOOD CELL (test code = RBC) 4.50 mill/mm3 3.7-5.2 N HEMOGLOBIN (test code = HGB) 10.3 gram/dL 11.5-15.5 L HEMATOCRIT (test code = HCT) 36.5 % 36.0-46.0 N MEAN CELL VOLUME (test code = MCV) 81.1 fL 80-98 N MEAN CELL HGB (test code = MCH) 22.9 picogram 27.0-33.0 L MEAN CELL HGB CONCETRATION (test code = MCHC) 28.2 gram/dL 33.0-36. 0 L RED CELL DISTRIBUTION WIDTH (test code = RDW) 17.5 % 11.6-16. 2 H RED CELL DISTRIBUTION WIDTH SD (test code = RDW-SD) 49.6 fL 37 .0-51.0 N PLATELET COUNT (test code = PLT) 181 K/mm3 150-450 N MEAN PLATELET VOLUME (test code = MPV) 10.5 fL 6.7-11.0 N NEUTROPHIL % (test code = NT%) 65.0 % 39.0-69.0 N IMMATURE GRANULOCYTE % (test code = IG%) 1.8 % 0.0-5.0 N LYMPHOCYTE % (test code = LY%) 21.5 % 25.0-55.0 L MONOCYTE % (test code = MO%) 6.4 % 0.0-10.0 N EOSINOPHIL % (test code = EO%) 4.4 % 0.0-5.0 N BASOPHIL % (test code = BA%) 0.9 % 0.0-1.0 N NUCLEATED RBC % (test code = NRBC%) 0.6 % 0-0 H NEUTROPHIL # (test code = NT#) 3.53 K/mm3 1.8-7.7 N IMMATURE GRANULOCYTE # (test code = IG#) 0.10 x10 3/uL 0-0.03 H LYMPHOCYTE # (test code = LY#) 1.17 K/mm3 1.0-5.0 N MONOCYTE # (test code = MO#) 0.35 K/mm3 0-0.8 N EOSINOPHIL # (test code = EO#) 0.24 K/mm3 0.0-0.5 N BASOPHIL # (test code = BA#) 0.05 K/mm3 0.0-0.2 N NUCLEATED RBC # (test code = NRBC#) 0.03 K/mm3 0.0-0.1 N MANUAL DIFF REQUIRED (test code = MDIFF) NO, ONLY SCAN NEEDED DIFFERENTIAL [id number] 22:58:00* Test Item Value Reference Range Interpretation Comments STAIN ACCEPTABILITY (test code = STN ACCEPTABLE) CABOT RINGS (test code = CAB) MORPHOLOGY COMMENT (test code = MOC) PLATELET ESTIMATE (test code = PLTEST) PLATELET MORPHOLOGY (test code = PLTMORPH) CBC W/AUTO [id number] 22:58:00* Test Item Value Reference Range Interpretation Comments WHITE BLOOD CELL (test code = WBC) 5.4 K/mm3 4.5-12.5 N RED BLOOD CELL (test code = RBC) 4.50 mill/mm3 3.7-5.2 N HEMOGLOBIN (test code = HGB) 10.3 gram/dL 11.5-15.5 L HEMATOCRIT (test code = HCT) 36.5 % 36.0-46.0 N MEAN CELL VOLUME (test code = MCV) 81.1 fL 80-98 N MEAN CELL HGB (test code = MCH) 22.9 picogram 27.0-33.0 L MEAN CELL HGB CONCETRATION (test code = MCHC) 28.2 gram/dL 33.0-36. 0 L RED CELL DISTRIBUTION WIDTH (test code = RDW) 17.5 % 11.6-16. 2 H RED CELL DISTRIBUTION WIDTH SD (test code = RDW-SD) 49.6 fL 37 .0-51.0 N PLATELET COUNT (test code = PLT) 181 K/mm3 150-450 N MEAN PLATELET VOLUME (test code = MPV) 10.5 fL 6.7-11.0 N NEUTROPHIL % (test code = NT%) 65.0 % 39.0-69.0 N IMMATURE GRANULOCYTE % (test code = IG%) 1.8 % 0.0-5.0 N LYMPHOCYTE % (test code = LY%) 21.5 % 25.0-55.0 L MONOCYTE % (test code = MO%) 6.4 % 0.0-10.0 N EOSINOPHIL % (test code = EO%) 4.4 % 0.0-5.0 N BASOPHIL % (test code = BA%) 0.9 % 0.0-1.0 N NUCLEATED RBC % (test code = NRBC%) 0.6 % 0-0 H NEUTROPHIL # (test code = NT#) 3.53 K/mm3 1.8-7.7 N IMMATURE GRANULOCYTE # (test code = IG#) 0.10 x10 3/uL 0-0.03 H LYMPHOCYTE # (test code = LY#) 1.17 K/mm3 1.0-5.0 N MONOCYTE # (test code = MO#) 0.35 K/mm3 0-0.8 N EOSINOPHIL # (test code = EO#) 0.24 K/mm3 0.0-0.5 N BASOPHIL # (test code = BA#) 0.05 K/mm3 0.0-0.2 N NUCLEATED RBC # (test code = NRBC#) 0.03 K/mm3 0.0-0.1 N MANUAL DIFF REQUIRED (test code = MDIFF) NO, ONLY SCAN NEEDED DIFFERENTIAL [id number] 22:58:00* Test Item Value Reference Range Interpretation Comments STAIN ACCEPTABILITY (test code = STN ACCEPTABLE) MORPHOLOGY COMMENT (test code = MOC) PLATELET ESTIMATE (test code = PLTEST) PLATELET MORPHOLOGY (test code = PLTMORPH) CBC W/AUTO [id number] 22:58:00* Test Item Value Reference Range Interpretation Comments WHITE BLOOD CELL (test code = WBC) 5.4 K/mm3 4.5-12.5 N RED BLOOD CELL (test code = RBC) 4.50 mill/mm3 3.7-5.2 N HEMOGLOBIN (test code = HGB) 10.3 gram/dL 11.5-15.5 L HEMATOCRIT (test code = HCT) 36.5 % 36.0-46.0 N MEAN CELL VOLUME (test code = MCV) 81.1 fL 80-98 N MEAN CELL HGB (test code = MCH) 22.9 picogram 27.0-33.0 L MEAN CELL HGB CONCETRATION (test code = MCHC) 28.2 gram/dL 33.0-36. 0 L RED CELL DISTRIBUTION WIDTH (test code = RDW) 17.5 % 11.6-16. 2 H RED CELL DISTRIBUTION WIDTH SD (test code = RDW-SD) 49.6 fL 37 .0-51.0 N PLATELET COUNT (test code = PLT) 181 K/mm3 150-450 N MEAN PLATELET VOLUME (test code = MPV) 10.5 fL 6.7-11.0 N NEUTROPHIL % (test code = NT%) 65.0 % 39.0-69.0 N IMMATURE GRANULOCYTE % (test code = IG%) 1.8 % 0.0-5.0 N LYMPHOCYTE % (test code = LY%) 21.5 % 25.0-55.0 L MONOCYTE % (test code = MO%) 6.4 % 0.0-10.0 N EOSINOPHIL % (test code = EO%) 4.4 % 0.0-5.0 N BASOPHIL % (test code = BA%) 0.9 % 0.0-1.0 N NUCLEATED RBC % (test code = NRBC%) 0.6 % 0-0 H NEUTROPHIL # (test code = NT#) 3.53 K/mm3 1.8-7.7 N IMMATURE GRANULOCYTE # (test code = IG#) 0.10 x10 3/uL 0-0.03 H LYMPHOCYTE # (test code = LY#) 1.17 K/mm3 1.0-5.0 N MONOCYTE # (test code = MO#) 0.35 K/mm3 0-0.8 N EOSINOPHIL # (test code = EO#) 0.24 K/mm3 0.0-0.5 N BASOPHIL # (test code = BA#) 0.05 K/mm3 0.0-0.2 N NUCLEATED RBC # (test code = NRBC#) 0.03 K/mm3 0.0-0.1 N MANUAL DIFF REQUIRED (test code = MDIFF) NO, ONLY SCAN NEEDED DIFFERENTIAL [id number] 22:58:00* Test Item Value Reference Range Interpretation Comments STAIN ACCEPTABILITY (test code = STN ACCEPTABLE) CABOT RINGS (test code = CAB) MORPHOLOGY COMMENT (test code = MOC) PLATELET ESTIMATE (test code = PLTEST) PLATELET MORPHOLOGY (test code = PLTMORPH) VENOUS BLOOD [id number] 22:36:00* Test Item Value Reference Range Interpretation Comments VENOUS BLOOD GAS PH (test code = PHV) 7.32 7.30-7.40 N VENOUS BLOOD GAS PCO2 (test code = PCO2V) 54.4 mm Hg 39.0-51.0 H VENOUS BLOOD GAS PO2 (test code = PO2V) < 40.7 mm Hg 30.0-50.0 N VBG HCO3 (test code = HCO3V) 27.1 mmol/L 17.0-30.0 N VBG BASE EXCESS (test code = CASEY) 0.2 mmol/L -5.0-5.0 N VENOUS BLOOD GAS O2 SAT. (test code = O2SATV) 60 % 94-98 LL VENOUS BLOOD GAS FIO2 (test code = FIO2V) 36.0 PT. TEMP (test code = PTEMPVBG) 37.0 Celsius 36.5-37.5 N PT. HGB (test code = PHGBVBG) 11.7 gram/dL 11.5-15.5 N VENOUS BLOOD GAS SITE (test code = SITEV) IVC HEMATOCRIT (test code = HCT/VBG) 34 % 42-52 L HGB O2 SAT (test code = HBOSAT) 58.6 % 94.00-98.00 LL CARBOXYHEMOGLOBIN (test code = HOHGBT) 2.0 %totalHg 0.5-1.5 H Results called to and read back by Kobi Rincon 22:17 - 08/26/2019; by Marcie TONY RESEARCH/PROGRAM DIRECTOR METHEMOGLOBIN (test code = METHGB) 0.1 % 0.0-1.50 N BASIC METABOLIC [id number] 14:12:00* Test Item Value Reference Range Interpretation Comments SODIUM (test code = NA) 143 mmol/L 136-145 N POTASSIUM (test code = K) 3.7 mmol/L 3.5-5.1 N CHLORIDE (test code = CL) 107.0 mmol/L 98-107 N CARBON DIOXIDE (test code = CO2) 29.0 mmol/L 21-32 N ANION GAP (test code = GAP) 10.7 10-20 N GLUCOSE (test code = GLU) 235 mg/dL 74-106 H BLOOD UREA NITROGEN (test code = BUN) 22 mg/dL 7-18 H GLOMERULAR FILTRATION RATE (test code = GFR) > 60 mL/min >=60 Estimated GFR by using Modified MDRD formula.Chronic kidney disease is defined as either kidney damageor GFR <60 mL/min/1.73 m2 for >3 months. CREATININE (test code = CREAT) 0.90 mg/dL 0.55-1.02 N Note change in reference range due to change in reagent. BUN/CREATININE RATIO (test code = BUN/CREA) 24.4 10-20 H CALCIUM (test code = CA) 8.7 mg/dL 8.5-10.1 N BASIC METABOLIC [id number] 14:06:00* Test Item Value Reference Range Interpretation Comments SODIUM (test code = NA) 143 mmol/L 136-145 N POTASSIUM (test code = K) 3.7 mmol/L 3.5-5.1 N CHLORIDE (test code = CL) 107.0 mmol/L 98-107 N CARBON DIOXIDE (test code = CO2) mmol/L 21-32 ANION GAP (test code = GAP) 10-20 GLUCOSE (test code = GLU) mg/dL 74-106 BLOOD UREA NITROGEN (test code = BUN) mg/dL 7-18 GLOMERULAR FILTRATION RATE (test code = GFR) mL/min >=60 CREATININE (test code = CREAT) mg/dL 0.55-1.02 BUN/CREATININE RATIO (test code = BUN/CREA) 10-20 CALCIUM (test code = CA) 8.7 mg/dL 8.5-10.1 N CBC W/AUTO [id number] 13:33:00* Test Item Value Reference Range Interpretation Comments WHITE BLOOD CELL (test code = WBC) 5.7 K/mm3 4.5-12.5 N RED BLOOD CELL (test code = RBC) 4.59 mill/mm3 3.7-5.2 N HEMOGLOBIN (test code = HGB) 10.6 gram/dL 11.5-15.5 L HEMATOCRIT (test code = HCT) 36.6 % 36.0-46.0 N MEAN CELL VOLUME (test code = MCV) 79.7 fL 80-98 L MEAN CELL HGB (test code = MCH) 23.1 picogram 27.0-33.0 L MEAN CELL HGB CONCETRATION (test code = MCHC) 29.0 gram/dL 33.0-36. 0 L RED CELL DISTRIBUTION WIDTH (test code = RDW) 16.6 % 11.6-16. 2 H RED CELL DISTRIBUTION WIDTH SD (test code = RDW-SD) 45.5 fL 37 .0-51.0 N PLATELET COUNT (test code = PLT) 155 K/mm3 150-450 N MEAN PLATELET VOLUME (test code = MPV) 10.5 fL 6.7-11.0 N NEUTROPHIL % (test code = NT%) 68.0 % 39.0-69.0 N IMMATURE GRANULOCYTE % (test code = IG%) 0.7 % 0.0-5.0 N LYMPHOCYTE % (test code = LY%) 21.4 % 25.0-55.0 L MONOCYTE % (test code = MO%) 5.2 % 0.0-10.0 N EOSINOPHIL % (test code = EO%) 3.7 % 0.0-5.0 N BASOPHIL % (test code = BA%) 1.0 % 0.0-1.0 N NUCLEATED RBC % (test code = NRBC%) 0.0 % 0-0 N NEUTROPHIL # (test code = NT#) 3.90 K/mm3 1.8-7.7 N IMMATURE GRANULOCYTE # (test code = IG#) 0.04 x10 3/uL 0-0.03 H LYMPHOCYTE # (test code = LY#) 1.23 K/mm3 1.0-5.0 N MONOCYTE # (test code = MO#) 0.30 K/mm3 0-0.8 N EOSINOPHIL # (test code = EO#) 0.21 K/mm3 0.0-0.5 N BASOPHIL # (test code = BA#) 0.06 K/mm3 0.0-0.2 N NUCLEATED RBC # (test code = NRBC#) 0.00 K/mm3 0.0-0.1 N - CT C-SPINE W/O [id number] 08:02:00 Name: KALYANI TALAVERA [facility] : 1955 Age/S: 64 / F [address] Unit #: [id number] Loc: [place] [address] Phys: Thelma Loyd DO Acct: [id number] Dis Date: Status: REG ER PHONE #: [phone] Exam Date: 08/06/2019 075 FAX #: [phone] Reason: Neck Pain EXAMS: CPT CODE: [id number] CT C-SPINE W/O CONTRAST 99454 HISTORY: Neck Pain, status post fall TECHNIQUE: 2.[address] of the cervical spine. Sagittal and coronal reformatted images were generated. Automated exposure control for dose reduction. COMPARISON: 08/06/19 FINDINGS: Craniocervical and cervicothoracic articulations are appropriate. Degenerative changes of the atlantoaxial joint. Mild cervical dextroscoliosis. Vertebral body alignment is satisfactory. Vertebral body heights are preserved. Mild disc bulge with marginal osteophytes at C5-C6 and C6-C7. Mild upper cervical facet arthrosis. No central canal or foraminal stenosis. No prevertebral or paraspinal soft tissue abnormality. Atherosclerotic vascular calcification of the carotid bifurcations. Diffu sely enlarged thyroid with few coarse calcifications. Visualized posterior fossa contents are grossly unremarkable. Patchy biapical groundglass and interstitial opacities. IMPRESSION: N o acute fracture or subluxation of the cervical spine. LOCATION: LP at 0802 Reported and si gned by: Kary Camacho D.O. CC: Thelma Loyd DO; Benjamin Masters Technologist:Graham Koenig RT(R),(MR),(CT) CTDI: DLP: Trnscb Date/Time: 08/06/2019 (0802) [email or web address] Orig Print D/T: S: 08/06/2019 (0805) PAGE 1 Signed Report BASIC METABOLIC [id number] 07:06:00* Test Item Value Reference Range Interpretation Comments SODIUM (test code = NA) 140 mmol/L 136-145 N POTASSIUM (test code = K) 3.7 mmol/L 3.5-5.1 N CHLORIDE (test code = CL) 107.0 mmol/L 98-107 N CARBON DIOXIDE (test code = CO2) 25.0 mmol/L 21-32 N ANION GAP (test code = GAP) 11.7 10-20 N GLUCOSE (test code = GLU) 235 mg/dL 74-106 H BLOOD UREA NITROGEN (test code = BUN) 29 mg/dL 7-18 H GLOMERULAR FILTRATION RATE (test code = GFR) > 60 mL/min >=60 Estimated GFR by using Modified MDRD formula.Chronic kidney disease is defined as either kidney damageor GFR <60 mL/min/1.73 m2 for >3 months. CREATININE (test code = CREAT) 0.90 mg/dL 0.55-1.02 N Note change in reference range due to change in reagent. BUN/CREATININE RATIO (test code = BUN/CREA) 32.2 10-20 H CALCIUM (test code = CA) 9.1 mg/dL 8.5-10.1 N BASIC METABOLIC [id number] 07:02:00* Test Item Value Reference Range Interpretation Comments SODIUM (test code = NA) 140 mmol/L 136-145 N POTASSIUM (test code = K) 3.7 mmol/L 3.5-5.1 N CHLORIDE (test code = CL) 107.0 mmol/L 98-107 N CARBON DIOXIDE (test code = CO2) mmol/L 21-32 ANION GAP (test code = GAP) 10-20 GLUCOSE (test code = GLU) mg/dL 74-106 BLOOD UREA NITROGEN (test code = BUN) mg/dL 7-18 GLOMERULAR FILTRATION RATE (test code = GFR) mL/min >=60 CREATININE (test code = CREAT) mg/dL 0.55-1.02 BUN/CREATININE RATIO (test code = BUN/CREA) 10-20 CALCIUM (test code = CA) mg/dL 8.5-10.1 CBC W/O [id number] 06:41:00* Test Item Value Reference Range Interpretation Comments WHITE BLOOD CELL (test code = WBC) 4.7 K/mm3 4.5-12.5 N RED BLOOD CELL (test code = RBC) 5.12 mill/mm3 3.7-5.2 N HEMOGLOBIN (test code = HGB) 11.8 gram/dL 11.5-15.5 N HEMATOCRIT (test code = HCT) 40.5 % 36.0-46.0 N MEAN CELL VOLUME (test code = MCV) 79.1 fL 80-98 L MEAN CELL HGB (test code = MCH) 23.0 picogram 27.0-33.0 L MEAN CELL HGB CONCETRATION (test code = MCHC) 29.1 gram/dL 33.0-36. 0 L RED CELL DISTRIBUTION WIDTH (test code = RDW) 15.6 % 11.6-16. 2 N PLATELET COUNT (test code = PLT) 154 K/mm3 150-450 N MEAN PLATELET VOLUME (test code = MPV) 10.3 fL 6.7-11.0 N - CT C-SPINE W/O [id number] 06:25:00 Name: KALYANI TALAVERA [facility] : 1955 Age/S: 64 / F [address] Unit #: [id number] Loc: [place] [address] Phys: Thelma Loyd DO Acct: [id number] Dis Date: Status: REG ER PHONE #: [phone] Exam Date: 08/06/2019 0605 FAX #: [phone] Reason: Neck Pain EXAMS: CPT CODE: [id number] CT C-SPINE W/O CONTRAST 95284 EXAM: - CT C-SPINE W/O CONTRAST HISTORY: Neck Pain Location code:C3 TECHNIQUE: Axial tomograms through the cervical spine were obtained without intravenous contrast. Sagittal and coronal reformatted images are provided. One or more of the following dose reduction techniques were used: Automated exposure control, adjustment of the mA and/or kV according to patient size, and/or utilization of iterative reconstruction technique. DLP: 460 mGy-cm. COMPARISON: None available time of interpretation. FINDINGS: Marked patient motion limits evaluation. No gross displaced fracture is seen. Subtle nondisplaced fracture would be di fficult to exclude. Groundglass opacities at the lung apices may represen t edema or air trapping. IMPRESSION: 1. Limited e xam as above. at 0625 Reported and signed by: Wendie Adan M.D. CC: Thelma Loyd DO; Benjamin Masters Technologist:JORDEN MERCADO, RT CTDI: DLP: Trnscb Date/Time: 08/06/2019 (01 15) [email or web address] Orig Print D/T: S: 08/06/2019 (628) P AGE 2 Signed Report - CT MAXIFAC W/O [id number] 06:21:00 Name: KALYANI TALAVERA [facility] : 1955 Age/S: 64 / F [address] [facility] Unit #: [id number] Loc: [place] [address] Phys: Thelma Loyd DO Acct: [id number] Dis Date: Status: REG ER PHONE #: [phone] Exam Date: 08/06/2019 06 FAX #: [phone] Reason: TRAUMA EXAMS: CPT CODE: [id number] CT MAXIFAC W/O CNT 97834 EXAM: - CT MAXIFAC W/O CNT HISTORY: TRAUMA Location code:C3 TECHNIQUE: Helical axial images were obtained through the maxillofacial sinuses and orbits without IV contrast. Sagittal and coronal multiplanar reconstructions were performed. One or more of the following dose reduction techniques were used: Automated exposure control, adjustment of the mA and/or kV according to patient size, and/or utilization of iterative reconstruction technique. DLP: 756 mGy-cm. COMPARISON: None FINDINGS: Globes are intact. Intraorbital contents are normal. No acute fracture of the orbital rims or cabrera, sinus cabrrea, zygomatic arches, nasal bone, anterior nasal spine, or mandible. Paranasal sinuses are clear. Left supraorbital soft tissue swelling is present. Multiple dental caries are present. IMPRESSION: 1. Left supraorbital soft tissue swelling is present. 2. Other findings as above. at 0621 Reported and signed by: Wendie Adan M.D. CC: Thelma Loyd DO; Benjamin Masters Technologist:JORDEN MERCADO, RT CTDI: DLP: Trnscb Date/Time: 08/06/2019 (620) [email or web address] Orig Print D/T: S: 08/06/2019 (0068) PAGE 1 Signed Report - CT HEAD/BRAIN W/O [id number] 06:20:00 Name: KALYANI TALAVERA [facility] : 1955 Age/S: 64 / F [address] Unit #: [id number] Loc: [place] [address] Phys: Thelma Loyd DO Acct: [id number] Dis Date: Status: REG ER PHONE #: [phone] Exam Date: 08/06/2019 0518 FAX #: [phone] Reason: HEADACHE EXAMS: CPT CODE: [id number] CT HEAD/BRAIN W/O CONT 04515 EXAM: - CT HEAD/BRAIN W/O CONT Location code:C3 HISTORY: HEADACHE TECHNIQUE: Axial CT images from the skull base to the vertex without intravenous contrast. Coronal and sagittal reformatted images were created from the data set. One or more of the following dose reduction techniques were used: Automated exposure control, adjustment of the mA and/or kV according to patient size, and/or utilization of iterative reconstruction technique. DLP: 848 mGy-cm. COMPARISON: 05/31/2019 FINDINGS: Intracranial: No abnormal brain parenchymal density. No evidence of acute infarction, intracranial hemorrhage, mass or mass effect, or abnormal extra-axial fluid collection. The ventricular system and sulci are age appropriate. The density in the larger dural sinuses is grossly normal. Bones: There is no e vidence of acute displaced calvarial fracture. Sinuses: The visual ized portions of the paranasal sinuses demonstrate no significant opacific ation.The mastoid air cells are clear. Orbits/Soft Tissues: The v isualized orbits show no significant abnormalities. Left supraorbital sof t tissue swelling is present. IMPRESSION: 1. Left supraorbital soft tissue swelling is present without acute intracra nial abnormality. at 0620 Reported and signed by: Wendie Adan M.D. PAGE 1 Signed Report (CONTINUED) Name: KALYANI MOSES [facility] : 1955 Age/S: 64 / F [address] Unit #: [id number] L oc: [place] [address] Phys: Thelma Loyd DO Acct: [id number] Dis Date: Status: REG ER PHONE #: [phone] Exam Date: 08/06/2019 0559 FAX #: [phone] Malinda son: HEADACHE EXAMS: CPT CODE: [id number] CT HEAD/BRAIN W/O CONT 24151 <Continued> CC: EvertThelma DO; Benjamin Masters Technologist:JORDEN MERCADO, RT CTDI: DLP: Trnscb Date/Time: 08/06/2019 (619) [email or web address] Orig Print D/T: S: 08/06/2019 (0600) PAGE 2 Signed Report BASIC METABOLIC [id number] 07:49:00* Test Item Value Reference Range Interpretation Comments SODIUM (test code = NA) 139 mmol/L 136-145 N POTASSIUM (test code = K) 3.9 mmol/L 3.5-5.1 N CHLORIDE (test code = CL) 101.0 mmol/L 98-107 N CARBON DIOXIDE (test code = CO2) 35.0 mmol/L 21-32 H ANION GAP (test code = GAP) 6.9 10-20 L GLUCOSE (test code = GLU) 165 mg/dL 74-106 H BLOOD UREA NITROGEN (test code = BUN) 33 mg/dL 7-18 H GLOMERULAR FILTRATION RATE (test code = GFR) 50 mL/min >=60 Estimated GFR by using Modified MDRD formula.Chronic kidney disease is defined as either kidney damageor GFR <60 mL/min/1.73 m2 for >3 months. CREATININE (test code = CREAT) 1.10 mg/dL 0.55-1.02 H Note change in reference range due to change in reagent. BUN/CREATININE RATIO (test code = BUN/CREA) 29.7 10-20 H CALCIUM (test code = CA) 8.7 mg/dL 8.5-10.1 N [id number] 06:05:00* Test Item Value Reference Range Interpretation Comments GLUBED (test code = GLUBED) 181 mg/dL 74-106 H Performed by certified glue spreading machine operator at [facility] [id number] 20:37:00* Test Item Value Reference Range Interpretation Comments GLUBED (test code = GLUBED) 285 mg/dL 74-106 H Performed by certified glue spreading machine operator at [facility] [id number] 17:15:00* Test Item Value Reference Range Interpretation Comments GLUBED (test code = GLUBED) 84 mg/dL 74-106 N Performed by certified glue spreading machine operator at [facility] [id number] 17:15:00* Test Item Value Reference Range Interpretation Comments GLUBED (test code = GLUBED) 166 mg/dL 74-106 H Performed by certified glue spreading machine operator at [facility] BASIC METABOLIC [id number] 07:13:00* Test Item Value Reference Range Interpretation Comments SODIUM (test code = NA) 140 mmol/L 136-145 N POTASSIUM (test code = K) 3.9 mmol/L 3.5-5.1 N CHLORIDE (test code = CL) 103.0 mmol/L 98-107 N CARBON DIOXIDE (test code = CO2) 28.0 mmol/L 21-32 N ANION GAP (test code = GAP) 12.9 10-20 N GLUCOSE (test code = GLU) 204 mg/dL 74-106 H BLOOD UREA NITROGEN (test code = BUN) 40 mg/dL 7-18 H GLOMERULAR FILTRATION RATE (test code = GFR) 56 mL/min >=60 Estimated GFR by using Modified MDRD formula.Chronic kidney disease is defined as either kidney damageor GFR <60 mL/min/1.73 m2 for >3 months. CREATININE (test code = CREAT) 1.00 mg/dL 0.55-1.02 N Note change in reference range due to change in reagent. BUN/CREATININE RATIO (test code = BUN/CREA) 38.1 10-20 H CALCIUM (test code = CA) 8.7 mg/dL 8.5-10.1 N BASIC METABOLIC [id number] 07:09:00* Test Item Value Reference Range Interpretation Comments SODIUM (test code = NA) 140 mmol/L 136-145 N POTASSIUM (test code = K) 3.9 mmol/L 3.5-5.1 N CHLORIDE (test code = CL) 103.0 mmol/L 98-107 N CARBON DIOXIDE (test code = CO2) mmol/L 21-32 ANION GAP (test code = GAP) 10-20 GLUCOSE (test code = GLU) mg/dL 74-106 BLOOD UREA NITROGEN (test code = BUN) mg/dL 7-18 GLOMERULAR FILTRATION RATE (test code = GFR) mL/min >=60 CREATININE (test code = CREAT) mg/dL 0.55-1.02 BUN/CREATININE RATIO (test code = BUN/CREA) 10-20 CALCIUM (test code = CA) mg/dL 8.5-10.1 CBC W/AUTO [id number] 06:42:00* Test Item Value Reference Range Interpretation Comments WHITE BLOOD CELL (test code = WBC) 5.8 K/mm3 4.5-12.5 N RED BLOOD CELL (test code = RBC) 4.24 mill/mm3 3.7-5.2 N HEMOGLOBIN (test code = HGB) 10.5 gram/dL 11.5-15.5 L HEMATOCRIT (test code = HCT) 34.2 % 36.0-46.0 L MEAN CELL VOLUME (test code = MCV) 80.7 fL 80-98 N MEAN CELL HGB (test code = MCH) 24.8 picogram 27.0-33.0 L MEAN CELL HGB CONCETRATION (test code = MCHC) 30.7 gram/dL 33.0-36. 0 L RED CELL DISTRIBUTION WIDTH (test code = RDW) 15.0 % 11.6-16. 2 N RED CELL DISTRIBUTION WIDTH SD (test code = RDW-SD) 43.5 fL 37 .0-51.0 N PLATELET COUNT (test code = PLT) 185 K/mm3 150-450 N MEAN PLATELET VOLUME (test code = MPV) 10.6 fL 6.7-11.0 N NEUTROPHIL % (test code = NT%) 66.2 % 39.0-69.0 N IMMATURE GRANULOCYTE % (test code = IG%) 1.2 % 0.0-5.0 N LYMPHOCYTE % (test code = LY%) 23.5 % 25.0-55.0 L MONOCYTE % (test code = MO%) 7.2 % 0.0-10.0 N EOSINOPHIL % (test code = EO%) 1.2 % 0.0-5.0 N BASOPHIL % (test code = BA%) 0.7 % 0.0-1.0 N NUCLEATED RBC % (test code = NRBC%) 0.0 % 0-0 N NEUTROPHIL # (test code = NT#) 3.86 K/mm3 1.8-7.7 N IMMATURE GRANULOCYTE # (test code = IG#) 0.07 x10 3/uL 0-0.03 H LYMPHOCYTE # (test code = LY#) 1.37 K/mm3 1.0-5.0 N MONOCYTE # (test code = MO#) 0.42 K/mm3 0-0.8 N EOSINOPHIL # (test code = EO#) 0.07 K/mm3 0.0-0.5 N BASOPHIL # (test code = BA#) 0.04 K/mm3 0.0-0.2 N NUCLEATED RBC # (test code = NRBC#) 0.00 K/mm3 0.0-0.1 N MANUAL DIFF REQUIRED (test code = MDIFF) NO [id number] 06:33:00* Test Item Value Reference Range Interpretation Comments GLUBED (test code = GLUBED) 180 mg/dL 74-106 H Performed by certified glue spreading machine operator at [facility] [id number] 20:48:00* Test Item Value Reference Range Interpretation Comments GLUBED (test code = GLUBED) 403 mg/dL 74-106 H Performed by certified glue spreading machine operator at [facility] [id number] 18:00:00* Test Item Value Reference Range Interpretation Comments GLUBED (test code = GLUBED) 326 mg/dL 74-106 H Performed by certified glue spreading machine operator at [facility] [id number] 14:21:00* Test Item Value Reference Range Interpretation Comments GLYCOSYLATED HEMOGLOBIN (HA1C) (test code = GLYHGB) 8.9 % HbA1 SUGGESTED DIAGNOSIS: HbA1C (%) Diabetic >6.4Prediabetes 5.7 - 6.4Normal <5.7 ESTIMATED AVERAGE GLUCOSE (test code = EAG) 209 MG/DL [id number] 13:22:00* Test Item Value Reference Range Interpretation Comments GLUBED (test code = GLUBED) 222 mg/dL 74-106 H Performed by certified glue spreading machine operator at [facility] CBC W/AUTO [id number] 10:20:00* Test Item Value Reference Range Interpretation Comments WHITE BLOOD CELL (test code = WBC) 6.6 K/mm3 4.5-12.5 N RED BLOOD CELL (test code = RBC) 4.17 mill/mm3 3.7-5.2 N HEMOGLOBIN (test code = HGB) 10.1 gram/dL 11.5-15.5 L HEMATOCRIT (test code = HCT) 34.8 % 36.0-46.0 L MEAN CELL VOLUME (test code = MCV) 83.5 fL 80-98 N MEAN CELL HGB (test code = MCH) 24.2 picogram 27.0-33.0 L MEAN CELL HGB CONCETRATION (test code = MCHC) 29.0 gram/dL 33.0-36. 0 L RED CELL DISTRIBUTION WIDTH (test code = RDW) 15.2 % 11.6-16. 2 N RED CELL DISTRIBUTION WIDTH SD (test code = RDW-SD) 46.0 fL 37 .0-51.0 N PLATELET COUNT (test code = PLT) 182 K/mm3 150-450 N MEAN PLATELET VOLUME (test code = MPV) 10.1 fL 6.7-11.0 N NEUTROPHIL % (test code = NT%) 68.5 % 39.0-69.0 N IMMATURE GRANULOCYTE % (test code = IG%) 1.5 % 0.0-5.0 N LYMPHOCYTE % (test code = LY%) 21.7 % 25.0-55.0 L MONOCYTE % (test code = MO%) 5.8 % 0.0-10.0 N EOSINOPHIL % (test code = EO%) 1.7 % 0.0-5.0 N BASOPHIL % (test code = BA%) 0.8 % 0.0-1.0 N NUCLEATED RBC % (test code = NRBC%) 0.0 % 0-0 N NEUTROPHIL # (test code = NT#) 4.53 K/mm3 1.8-7.7 N IMMATURE GRANULOCYTE # (test code = IG#) 0.10 x10 3/uL 0-0.03 H LYMPHOCYTE # (test code = LY#) 1.43 K/mm3 1.0-5.0 N MONOCYTE # (test code = MO#) 0.38 K/mm3 0-0.8 N EOSINOPHIL # (test code = EO#) 0.11 K/mm3 0.0-0.5 N BASOPHIL # (test code = BA#) 0.05 K/mm3 0.0-0.2 N NUCLEATED RBC # (test code = NRBC#) 0.00 K/mm3 0.0-0.1 N MANUAL DIFF REQUIRED (test code = MDIFF) NO, ONLY SCAN NEEDED DIFFERENTIAL [id number] 10:20:00* Test Item Value Reference Range Interpretation Comments STAIN ACCEPTABILITY (test code = STN ACCEPTABLE) STAIN ACCEPTABLE MORPHOLOGY COMMENT (test code = MOC) NORMAL PLATELET ESTIMATE (test code = PLTEST) ADEQUATE PLATELET MORPHOLOGY (test code = PLTMORPH) NORMAL COMPREHENSIVE METABOLIC [id number] 10:05:00* Test Item Value Reference Range Interpretation Comments SODIUM (test code = NA) 141 mmol/L 136-145 N POTASSIUM (test code = K) 4.0 mmol/L 3.5-5.1 N CHLORIDE (test code = CL) 106.0 mmol/L 98-107 N CARBON DIOXIDE (test code = CO2) 31.0 mmol/L 21-32 N ANION GAP (test code = GAP) 8.0 10-20 L GLUCOSE (test code = GLU) 202 mg/dL 74-106 H BLOOD UREA NITROGEN (test code = BUN) 44 mg/dL 7-18 H GLOMERULAR FILTRATION RATE (test code = GFR) 50 mL/min >=60 Estimated GFR by using Modified MDRD formula.Chronic kidney disease is defined as either kidney damageor GFR <60 mL/min/1.73 m2 for >3 months. CREATININE (test code = CREAT) 1.10 mg/dL 0.55-1.02 H Note change in reference range due to change in reagent. BUN/CREATININE RATIO (test code = BUN/CREA) 38.9 10-20 H TOTAL PROTEIN (test code = PROT) 6.8 gram/dL 6.4-8.2 N ALBUMIN (test code = ALB) 3.3 g/dL 3.4-5.0 L GLOBULIN (test code = GLOB) 3.5 gram/dL 2.7-4.2 N ALBUMIN/GLOBULIN RATIO (test code = A/G) 0.9 0.75-1.50 N CALCIUM (test code = CA) 8.9 mg/dL 8.5-10.1 N BILIRUBIN TOTAL (test code = BILT) 0.30 mg/dL 0.0-1.0 N SGOT/AST (test code = AST) 22 IUnit/L 15-37 N SGPT/ALT (test code = ALT) 64 IUnit/L 12-78 N ALKALINE PHOSPHATASE TOTAL (test code = ALKP) 60 IUnit/L 45-117 N Note change in reference range due to change in reagent. B-TYPE NATRIURETIC [id number] 09:56:00* Test Item Value Reference Range Interpretation Comments B-TYPE NATRIURETIC PEPTIDE (test code = BNP) 62.56 pgram/mL 0-100 N COMPREHENSIVE METABOLIC [id number] 09:55:00* Test Item Value Reference Range Interpretation Comments SODIUM (test code = NA) 141 mmol/L 136-145 N POTASSIUM (test code = K) 4.0 mmol/L 3.5-5.1 N CHLORIDE (test code = CL) 106.0 mmol/L 98-107 N CARBON DIOXIDE (test code = CO2) mmol/L 21-32 ANION GAP (test code = GAP) 10-20 GLUCOSE (test code = GLU) mg/dL 74-106 BLOOD UREA NITROGEN (test code = BUN) mg/dL 7-18 GLOMERULAR FILTRATION RATE (test code = GFR) mL/min >=60 CREATININE (test code = CREAT) mg/dL 0.55-1.02 BUN/CREATININE RATIO (test code = BUN/CREA) 10-20 TOTAL PROTEIN (test code = PROT) gram/dL 6.4-8.2 ALBUMIN (test code = ALB) g/dL 3.4-5.0 GLOBULIN (test code = GLOB) gram/dL 2.7-4.2 ALBUMIN/GLOBULIN RATIO (test code = A/G) 0.75-1.50 CALCIUM (test code = CA) mg/dL 8.5-10.1 BILIRUBIN TOTAL (test code = BILT) mg/dL 0.0-1.0 SGOT/AST (test code = AST) IUnit/L 15-37 SGPT/ALT (test code = ALT) IUnit/L 12-78 ALKALINE PHOSPHATASE TOTAL (test code = ALKP) IUnit/L 45-117 CBC W/AUTO [id number] 09:21:00* Test Item Value Reference Range Interpretation Comments WHITE BLOOD CELL (test code = WBC) 6.6 K/mm3 4.5-12.5 N RED BLOOD CELL (test code = RBC) 4.17 mill/mm3 3.7-5.2 N HEMOGLOBIN (test code = HGB) 10.1 gram/dL 11.5-15.5 L HEMATOCRIT (test code = HCT) 34.8 % 36.0-46.0 L MEAN CELL VOLUME (test code = MCV) 83.5 fL 80-98 N MEAN CELL HGB (test code = MCH) 24.2 picogram 27.0-33.0 L MEAN CELL HGB CONCETRATION (test code = MCHC) 29.0 gram/dL 33.0-36. 0 L RED CELL DISTRIBUTION WIDTH (test code = RDW) 15.2 % 11.6-16. 2 N RED CELL DISTRIBUTION WIDTH SD (test code = RDW-SD) 46.0 fL 37 .0-51.0 N PLATELET COUNT (test code = PLT) 182 K/mm3 150-450 N MEAN PLATELET VOLUME (test code = MPV) 10.1 fL 6.7-11.0 N NEUTROPHIL % (test code = NT%) 68.5 % 39.0-69.0 N IMMATURE GRANULOCYTE % (test code = IG%) 1.5 % 0.0-5.0 N LYMPHOCYTE % (test code = LY%) 21.7 % 25.0-55.0 L MONOCYTE % (test code = MO%) 5.8 % 0.0-10.0 N EOSINOPHIL % (test code = EO%) 1.7 % 0.0-5.0 N BASOPHIL % (test code = BA%) 0.8 % 0.0-1.0 N NUCLEATED RBC % (test code = NRBC%) 0.0 % 0-0 N NEUTROPHIL # (test code = NT#) 4.53 K/mm3 1.8-7.7 N IMMATURE GRANULOCYTE # (test code = IG#) 0.10 x10 3/uL 0-0.03 H LYMPHOCYTE # (test code = LY#) 1.43 K/mm3 1.0-5.0 N MONOCYTE # (test code = MO#) 0.38 K/mm3 0-0.8 N EOSINOPHIL # (test code = EO#) 0.11 K/mm3 0.0-0.5 N BASOPHIL # (test code = BA#) 0.05 K/mm3 0.0-0.2 N NUCLEATED RBC # (test code = NRBC#) 0.00 K/mm3 0.0-0.1 N MANUAL DIFF REQUIRED (test code = MDIFF) NO, ONLY SCAN NEEDED DIFFERENTIAL [id number] 09:21:00* Test Item Value Reference Range Interpretation Comments STAIN ACCEPTABILITY (test code = STN ACCEPTABLE) CABOT RINGS (test code = CAB) MORPHOLOGY COMMENT (test code = MOC) PLATELET ESTIMATE (test code = PLTEST) PLATELET MORPHOLOGY (test code = PLTMORPH) CBC W/AUTO [id number] 09:21:00* Test Item Value Reference Range Interpretation Comments WHITE BLOOD CELL (test code = WBC) 6.6 K/mm3 4.5-12.5 N RED BLOOD CELL (test code = RBC) 4.17 mill/mm3 3.7-5.2 N HEMOGLOBIN (test code = HGB) 10.1 gram/dL 11.5-15.5 L HEMATOCRIT (test code = HCT) 34.8 % 36.0-46.0 L MEAN CELL VOLUME (test code = MCV) 83.5 fL 80-98 N MEAN CELL HGB (test code = MCH) 24.2 picogram 27.0-33.0 L MEAN CELL HGB CONCETRATION (test code = MCHC) 29.0 gram/dL 33.0-36. 0 L RED CELL DISTRIBUTION WIDTH (test code = RDW) 15.2 % 11.6-16. 2 N RED CELL DISTRIBUTION WIDTH SD (test code = RDW-SD) 46.0 fL 37 .0-51.0 N PLATELET COUNT (test code = PLT) 182 K/mm3 150-450 N MEAN PLATELET VOLUME (test code = MPV) 10.1 fL 6.7-11.0 N NEUTROPHIL % (test code = NT%) 68.5 % 39.0-69.0 N IMMATURE GRANULOCYTE % (test code = IG%) 1.5 % 0.0-5.0 N LYMPHOCYTE % (test code = LY%) 21.7 % 25.0-55.0 L MONOCYTE % (test code = MO%) 5.8 % 0.0-10.0 N EOSINOPHIL % (test code = EO%) 1.7 % 0.0-5.0 N BASOPHIL % (test code = BA%) 0.8 % 0.0-1.0 N NUCLEATED RBC % (test code = NRBC%) 0.0 % 0-0 N NEUTROPHIL # (test code = NT#) 4.53 K/mm3 1.8-7.7 N IMMATURE GRANULOCYTE # (test code = IG#) 0.10 x10 3/uL 0-0.03 H LYMPHOCYTE # (test code = LY#) 1.43 K/mm3 1.0-5.0 N MONOCYTE # (test code = MO#) 0.38 K/mm3 0-0.8 N EOSINOPHIL # (test code = EO#) 0.11 K/mm3 0.0-0.5 N BASOPHIL # (test code = BA#) 0.05 K/mm3 0.0-0.2 N NUCLEATED RBC # (test code = NRBC#) 0.00 K/mm3 0.0-0.1 N MANUAL DIFF REQUIRED (test code = MDIFF) NO, ONLY SCAN NEEDED DIFFERENTIAL [id number] 09:21:00* Test Item Value Reference Range Interpretation Comments STAIN ACCEPTABILITY (test code = STN ACCEPTABLE) MORPHOLOGY COMMENT (test code = MOC) PLATELET ESTIMATE (test code = PLTEST) PLATELET MORPHOLOGY (test code = PLTMORPH) CBC W/AUTO [id number] 09:20:00* Test Item Value Reference Range Interpretation Comments WHITE BLOOD CELL (test code = WBC) 6.6 K/mm3 4.5-12.5 N RED BLOOD CELL (test code = RBC) 4.17 mill/mm3 3.7-5.2 N HEMOGLOBIN (test code = HGB) 10.1 gram/dL 11.5-15.5 L HEMATOCRIT (test code = HCT) 34.8 % 36.0-46.0 L MEAN CELL VOLUME (test code = MCV) 83.5 fL 80-98 N MEAN CELL HGB (test code = MCH) 24.2 picogram 27.0-33.0 L MEAN CELL HGB CONCETRATION (test code = MCHC) 29.0 gram/dL 33.0-36. 0 L RED CELL DISTRIBUTION WIDTH (test code = RDW) 15.2 % 11.6-16. 2 N RED CELL DISTRIBUTION WIDTH SD (test code = RDW-SD) 46.0 fL 37 .0-51.0 N PLATELET COUNT (test code = PLT) 182 K/mm3 150-450 N MEAN PLATELET VOLUME (test code = MPV) 10.1 fL 6.7-11.0 N NEUTROPHIL % (test code = NT%) 68.5 % 39.0-69.0 N IMMATURE GRANULOCYTE % (test code = IG%) 1.5 % 0.0-5.0 N LYMPHOCYTE % (test code = LY%) 21.7 % 25.0-55.0 L MONOCYTE % (test code = MO%) 5.8 % 0.0-10.0 N EOSINOPHIL % (test code = EO%) 1.7 % 0.0-5.0 N BASOPHIL % (test code = BA%) 0.8 % 0.0-1.0 N NUCLEATED RBC % (test code = NRBC%) 0.0 % 0-0 N NEUTROPHIL # (test code = NT#) 4.53 K/mm3 1.8-7.7 N IMMATURE GRANULOCYTE # (test code = IG#) 0.10 x10 3/uL 0-0.03 H LYMPHOCYTE # (test code = LY#) 1.43 K/mm3 1.0-5.0 N MONOCYTE # (test code = MO#) 0.38 K/mm3 0-0.8 N EOSINOPHIL # (test code = EO#) 0.11 K/mm3 0.0-0.5 N BASOPHIL # (test code = BA#) 0.05 K/mm3 0.0-0.2 N NUCLEATED RBC # (test code = NRBC#) 0.00 K/mm3 0.0-0.1 N MANUAL DIFF REQUIRED (test code = MDIFF) NO, ONLY SCAN NEEDED DIFFERENTIAL [id number] 09:20:00* Test Item Value Reference Range Interpretation Comments STAIN ACCEPTABILITY (test code = STN ACCEPTABLE) CABOT RINGS (test code = CAB) MORPHOLOGY COMMENT (test code = MOC) PLATELET ESTIMATE (test code = PLTEST) PLATELET MORPHOLOGY (test code = PLTMORPH) CBC W/AUTO [id number] 09:20:00* Test Item Value Reference Range Interpretation Comments WHITE BLOOD CELL (test code = WBC) 6.6 K/mm3 4.5-12.5 N RED BLOOD CELL (test code = RBC) 4.17 mill/mm3 3.7-5.2 N HEMOGLOBIN (test code = HGB) 10.1 gram/dL 11.5-15.5 L HEMATOCRIT (test code = HCT) 34.8 % 36.0-46.0 L MEAN CELL VOLUME (test code = MCV) 83.5 fL 80-98 N MEAN CELL HGB (test code = MCH) 24.2 picogram 27.0-33.0 L MEAN CELL HGB CONCETRATION (test code = MCHC) 29.0 gram/dL 33.0-36. 0 L RED CELL DISTRIBUTION WIDTH (test code = RDW) 15.2 % 11.6-16. 2 N RED CELL DISTRIBUTION WIDTH SD (test code = RDW-SD) 46.0 fL 37 .0-51.0 N PLATELET COUNT (test code = PLT) 182 K/mm3 150-450 N MEAN PLATELET VOLUME (test code = MPV) 10.1 fL 6.7-11.0 N NEUTROPHIL % (test code = NT%) 68.5 % 39.0-69.0 N IMMATURE GRANULOCYTE % (test code = IG%) 1.5 % 0.0-5.0 N LYMPHOCYTE % (test code = LY%) 21.7 % 25.0-55.0 L MONOCYTE % (test code = MO%) 5.8 % 0.0-10.0 N EOSINOPHIL % (test code = EO%) 1.7 % 0.0-5.0 N BASOPHIL % (test code = BA%) 0.8 % 0.0-1.0 N NUCLEATED RBC % (test code = NRBC%) 0.0 % 0-0 N NEUTROPHIL # (test code = NT#) 4.53 K/mm3 1.8-7.7 N IMMATURE GRANULOCYTE # (test code = IG#) 0.10 x10 3/uL 0-0.03 H LYMPHOCYTE # (test code = LY#) 1.43 K/mm3 1.0-5.0 N MONOCYTE # (test code = MO#) 0.38 K/mm3 0-0.8 N EOSINOPHIL # (test code = EO#) 0.11 K/mm3 0.0-0.5 N BASOPHIL # (test code = BA#) 0.05 K/mm3 0.0-0.2 N NUCLEATED RBC # (test code = NRBC#) 0.00 K/mm3 0.0-0.1 N MANUAL DIFF REQUIRED (test code = MDIFF) NO, ONLY SCAN NEEDED DIFFERENTIAL [id number] 09:20:00* Test Item Value Reference Range Interpretation Comments STAIN ACCEPTABILITY (test code = STN ACCEPTABLE) CABOT RINGS (test code = CAB) MORPHOLOGY COMMENT (test code = MOC) PLATELET ESTIMATE (test code = PLTEST) PLATELET MORPHOLOGY (test code = PLTMORPH) [id number] 06:25:00* Test Item Value Reference Range Interpretation Comments GLUBED (test code = GLUBED) 208 mg/dL 74-106 H Performed by certified glue spreading machine operator at [facility] [id number] 20:49:00* Test Item Value Reference Range Interpretation Comments GLUBED (test code = GLUBED) 383 mg/dL 74-106 H Performed by certified glue spreading machine operator at [facility] [id number] 20:49:00* Test Item Value Reference Range Interpretation Comments GLUBED (test code = GLUBED) 421 mg/dL 74-106 H Performed by certified glue spreading machine operator at [facility] - XR CHEST 1 [id number] 16:23:00 FAX: Alfa Moscoso MD [phone] [place]: B St: ADM FAX: Benjamin Francis MD [phone] Name: KALYANI TALAVERA [facility] : 1955 Age/S: 64/F [address] [facility] Unit #: [id number] Loc: [place] [address] Phys: Alfa Cassidy MD Acct: [id number] Dis Date: Status: ADM IN PHONE #: [phone] Exam Date: 06/29/2019 1600 FAX #: [phone] Reason: CHF EXAMS: CPT CODE: [id number] XR CHEST 1 V 66616 HISTORY: CHF. COMPARISON: June 28, 2019. Single view chest: Location: TH. Suboptimal inspiration. Crowding of bronchovascular markings. Dependent changes. No acute infiltrates, effusion or congestion. Cardiomegaly. IMPRESSION: No acute infiltrates, effusion or congestion. M arkedly suboptimal inspiration. Dependent changes. Electron ically Signed by Gregory Chowdhury on 06/29/2019 at 1623 Reported and signed by: Solomon Chowdhury M.D. CC: Farhad Cassidy MD; Benjamin Masters Technologist: Kizzy Cisse RT(R) Trnscrd Date/Time/By: 06/29/2019 (1623) : By: [email or web address] Orig Print D/T: S: 06/30/2019 (3424) PAGE 1 Signed Report GLUBED 2019-06-29 12:29:00* Test Item Value Reference Range Interpretation Comments GLUBED (test code = GLUBED) 310 mg/dL 74-106 H Performed by certified glue spreading machine operator at [facility] [id number] 06:19:00* Test Item Value Reference Range Interpretation Comments GLUBED (test code = GLUBED) 339 mg/dL 74-106 H Performed by certified glue spreading machine operator at [facility] [id number] 00:36:00* Test Item Value Reference Range Interpretation Comments GLUBED (test code = GLUBED) 454 mg/dL 74-106 H Performed by certified glue spreading machine operator at [facility] [id number] 20:49:00* Test Item Value Reference Range Interpretation Comments GLUBED (test code = GLUBED) 480 mg/dL 74-106 H Performed by certified glue spreading machine operator at [facility] [id number] 18:21:00* Test Item Value Reference Range Interpretation Comments GLUBED (test code = GLUBED) 388 mg/dL 74-106 H Performed by certified glue spreading machine operator at [facility] URINALYSIS [id number] 11:46:00* Test Item Value Reference Range Interpretation Comments UA COLOR (test code = COLU) COLORLESS YELLOW A UA APPEARANCE (test code = APPU) CLEAR CLEAR UA GLUCOSE DIPSTICK (test code = DGLUU) NEGATIVE mg/dL NEGATIVE UA BILIRUBIN DIPSTICK (test code = BILU) NEGATIVE mg/dL NEGATIVE UA KETONE DIPSTICK (test code = KETU) NEGATIVE mg/dL NEGATIVE UA SPECIFIC GRAVITY (test code = SGU) 1.012 1.001-1.035 UA BLOOD DIPSTICK (test code = MONICA) Negative mg/dL NEGATIVE UA PH DIPSTICK (test code = VIVEK) 5.0 5.0-8.0 UA PROTEIN DIPSTICK (test code = PROU) NEGATIVE mg/dL NEGATIVE UA UROBILINIOGEN DIPSTICK (test code = URO) Normal mg/dL NEGATIVE UA NITRITE DIPSTICK (test code = GOYO) NEGATIVE NEGATIVE UA LEUKOCYTE ESTERASE W REFLEX (test code = LEUUR) NEGATIVE Kendra/uL NEGATIVE UA WBC (test code = WBCU) 0-5 per HPF 0-5 UA RBC (test code = RBCU) 0-2 #/HPF 0-5 UA EPITHELIAL CELLS (test code = EPIU) FEW per HPF FEW UA BACTERIA (test code = BACU) NONE SEEN #/HPF NONE UA HYALINE CAST (test code = HYALU) 3-5 #/LPF 0-5 UA MUCUS (test code = MUCU) FEW #/LPF FEW Urine Source? Clean CatchB-TYPE NATRIURETIC [id number] 10:41:00* Test Item Value Reference Range Interpretation Comments B-TYPE NATRIURETIC PEPTIDE (test code = BNP) 91.07 pgram/mL 0-100 N PROCALCITONIN (PCT)2019-06-28 09:39:00* Test Item Value Reference Range Interpretation Comments PROCALCITONIN (PCT) (test code = PROCAL) < 0.05 ng/ml Concentration Interpretation (ng/mL) <0.51 Sepsis is not likely. Local bacterial infection is possible. (LOW RISK for progression to Sepsis) 0.51 - 2.00 Sepsis is possible, but other conditions are known to elevate PCT as well. (MODERATE RISK for progression to Sepsis) > 2.00 Sepsis is likely, unless other causes are known. (HIGH RISK for progression to Severe Sepsis or Septic Shock) 10.00 High likelihood of Severe Sepsis or Septic or higher Shock. *Increased PCT levels may not always be related to systemic bacterial infection.*Low PCT levels do not automatically exclude the presence of bacterial infection.*All results should be interpreted taking into account the patients history. PROTHROMBIN [id number] 09:36:00* Test Item Value Reference Range Interpretation Comments PROTHROMBIN TIME PATIENT (test code = PTP) 12.5 seconds 9.0-14.0 N INTERNATIONAL NORMAL RATIO (test code = INR) 1.1 0.8-1.2 N The therapeutic range for oral anticoagulant therapy formost indications is an international normalized ratio (INR)of between 2.0 and 3.0. The recommended therapeutic INRrange for various clinical situations is listed below: Clinical Situation INR range Pulmonary e mbolism treatment (2.0-3.0)Venous thrombosis treatmentVenous thrombosis prophylaxis (high risk surgery)Prevention of systemic embolism from: Acute myocardial infarction Valvular heart disease Atrial fibrillation Mechanical prosthetic heart valves (2.5-3.5) IS PATIENT ON ANTICOAGULANTS? NTHROMBOPLASTIN TIME [id number] 09:36:00* Test Item Value Reference Range Interpretation Comments THROMBOPLASTIN TIME PARTIAL (test code = PTT) 33.1 seconds 25.0-36. 5 N IS PATIENT ON ANTICOAGULANTS? [id number] 09:36:00* Test Item Value Reference Range Interpretation Comments D-DIMER (test code = DDIMER) 423.00 ng/mLFEU 0-500 N Clinical Cut-off value for D-Dimer is 500 ng/mL FEU. Comment: The [employer] D-Dimer assay is intended for use asan aid in the diagnosis of venous thromboembolism (VTE)[deep vein thrombosis (DVT) or pulmonary embolism (PE)].The measurement of D-Dimer should not be used as an aid inthe diagnosis of VTE, in patient with: -Therapeutic dose anticoagulant therapy for >24 hours -Fibrinolytic therapy within previous 7 days -Trauma or surgery within previous 4 weeks -Disseminated malignancies -Aortic aneurysm -Sepsis, severe infections, pneumonia, severe skin infections -Liver cirrhosis - IS PATIENT ON ANTICOAGULANTS? NLACTIC [id number] 09:31:00* Test Item Value Reference Range Interpretation Comments LACTIC ACID (test code = LACT) 0.9 mmol/L 0.4-1.9 N BASIC METABOLIC [id number] 09:23:00* Test Item Value Reference Range Interpretation Comments SODIUM (test code = NA) 142 mmol/L 136-145 N POTASSIUM (test code = K) 4.2 mmol/L 3.5-5.1 N CHLORIDE (test code = CL) 110.0 mmol/L 98-107 H CARBON DIOXIDE (test code = CO2) 25.0 mmol/L 21-32 N ANION GAP (test code = GAP) 11.2 10-20 N GLUCOSE (test code = GLU) 70 mg/dL 74-106 L BLOOD UREA NITROGEN (test code = BUN) 33 mg/dL 7-18 H GLOMERULAR FILTRATION RATE (test code = GFR) 41 mL/min >=60 Estimated GFR by using Modified MDRD formula.Chronic kidney disease is defined as either kidney damageor GFR <60 mL/min/1.73 m2 for >3 months. CREATININE (test code = CREAT) 1.30 mg/dL 0.55-1.02 H Note change in reference range due to change in reagent. BUN/CREATININE RATIO (test code = BUN/CREA) 26.0 10-20 H CALCIUM (test code = CA) 8.8 mg/dL 8.5-10.1 N [id number] 09:23:00* Test Item Value Reference Range Interpretation Comments TROPONIN-I (test code = TROPI) <0.015 ng/mL 0-0.045 N - XR CHEST 1 [id number] 08:57:00 FAX: Amish Nur Si [phone] [place]: B St: REG FAX: Anastacio Burgess MD Name: KALYANI TALAVERA [facility] : 1955 Age/S: 64/F Shuk[facility] Glaser Unit #: [id number] Loc: [place] [address] Phys: Anastacio Burgess MD Acct: [id number] Dis Date: Status: REG ER PHONE #: [phone] Exam Date: 06/28/2019825 FAX #: [phone] Reason: Shortness of Breath EXAMS: CPT CODE: [id number] XR CHEST 1 V [id number] REASON FOR EXAM: Shortness of Breath Exam Order Date: 06/28/2019 8:03 AM Ordering M.D.: Anastacio Burgess MD PROCEDURE: - XR CHEST 1 V COMPARISON: Frontal chest x-ray June 07, 2019 FINDINGS: Lung volumes are diminished and there is subsegmental atelectasis in the lung bases. Upper lungs are clear. Cardiomediastinal silhouette is enlarged but stable in size. No acute musculoskeletal abnormality. The visualized upper abdomen is within normal limits. IMPRESSION: Low lung volumes with bibasilar subsegmental atelectasis. Location: [facility] at 0857 Reported and signed by: Dago Goodson MD CC: Lucille Land MD; Anastacio Burgess MD Technologist: Dayan Gallagher Trnscrd Date/Time/By: 06/28/2019 (0857) : By: [email or web address] Orig Print D/T: S: 06/28/2019 (0900) PAGE 1 Signed Report VENOUS BLOOD [id number] 08:54:00* Test Item Value Reference Range Interpretation Comments VENOUS BLOOD GAS PH (test code = PHV) 7.56 7.30-7.40 HH Results called to and read back by jairo 08:52 - 06/28/2019; by kushal cano VENOUS BLOOD GAS PCO2 (test code = PCO2V) 22.6 mm Hg 39.0-51.0 LL Results called to and read back by jairo 08:52 - 06/28/2019; by kushal cano VENOUS BLOOD GAS PO2 (test code = PO2V) 58.4 mm Hg 30.0-50.0 H VBG HCO3 (test code = HCO3V) 19.6 mmol/L 17.0-30.0 N VBG BASE EXCESS (test code = CASEY) -1.2 mmol/L -5.0-5.0 N VENOUS BLOOD GAS O2 SAT. (test code = O2SATV) 93 % 94-98 L VENOUS BLOOD GAS FIO2 (test code = FIO2V) 32.0 PT. HGB (test code = PHGBVBG) 11.3 gram/dL 11.5-15.5 L VENOUS BLOOD GAS SITE (test code = SITEV) IVC HEMATOCRIT (test code = HCT/VBG) 33 % 42-52 L HGB O2 SAT (test code = HBOSAT) 91.7 % 94.00-98.00 L CARBOXYHEMOGLOBIN (test code = HOHGBT) 1.5 %totalHg 0.5-1.5 N METHEMOGLOBIN (test code = METHGB) 0.3 % 0.0-1.50 N CBC W/O [id number] 08:45:00* Test Item Value Reference Range Interpretation Comments WHITE BLOOD CELL (test code = WBC) 5.0 K/mm3 4.5-12.5 N RED BLOOD CELL (test code = RBC) 4.24 mill/mm3 3.7-5.2 N HEMOGLOBIN (test code = HGB) 10.5 gram/dL 11.5-15.5 L HEMATOCRIT (test code = HCT) 35.9 % 36.0-46.0 L MEAN CELL VOLUME (test code = MCV) 84.7 fL 80-98 N MEAN CELL HGB (test code = MCH) 24.8 picogram 27.0-33.0 L MEAN CELL HGB CONCETRATION (test code = MCHC) 29.2 gram/dL 33.0-36. 0 L RED CELL DISTRIBUTION WIDTH (test code = RDW) 15.3 % 11.6-16. 2 N PLATELET COUNT (test code = PLT) 170 K/mm3 150-450 N MEAN PLATELET VOLUME (test code = MPV) 10.1 fL 6.7-11.0 N [id number] 16:30:00* Test Item Value Reference Range Interpretation Comments GLUBED (test code = GLUBED) 256 mg/dL 74-106 H Performed by certified glue spreading machine operator at [facility] [id number] 16:30:00* Test Item Value Reference Range Interpretation Comments GLUBED (test code = GLUBED) 277 mg/dL 74-106 H Performed by certified glue spreading machine operator at [facility] [id number] 07:50:00* Test Item Value Reference Range Interpretation Comments GLUBED (test code = GLUBED) 145 mg/dL 74-106 H Performed by certified glue spreading machine operator at [facility] [id number] 20:38:00* Test Item Value Reference Range Interpretation Comments GLUBED (test code = GLUBED) 250 mg/dL 74-106 H Performed by certified glue spreading machine operator at [facility] [id number] 16:19:00* Test Item Value Reference Range Interpretation Comments GLUBED (test code = GLUBED) 340 mg/dL 74-106 H Performed by certified glue spreading machine operator at [facility] [id number] 11:09:00* Test Item Value Reference Range Interpretation Comments GLUBED (test code = GLUBED) 102 mg/dL 74-106 N Performed by certified glue spreading machine operator at [facility] [id number] 07:20:00* Test Item Value Reference Range Interpretation Comments GLUBED (test code = GLUBED) 144 mg/dL 74-106 H Performed by certified glue spreading machine operator at [facility] [id number] 21:56:00* Test Item Value Reference Range Interpretation Comments GLUBED (test code = GLUBED) 328 mg/dL 74-106 H Performed by certified glue spreading machine operator at [facility] [id number] 16:11:00* Test Item Value Reference Range Interpretation Comments GLUBED (test code = GLUBED) 378 mg/dL 74-106 H Performed by certified glue spreading machine operator at [facility] [id number] 11:08:00* Test Item Value Reference Range Interpretation Comments GLUBED (test code = GLUBED) 168 mg/dL 74-106 H Performed by certified glue spreading machine operator at [facility] [id number] 07:29:00* Test Item Value Reference Range Interpretation Comments GLUBED (test code = GLUBED) 205 mg/dL 74-106 H Performed by certified glue spreading machine operator at [facility] B-TYPE NATRIURETIC [id number] 06:12:00* Test Item Value Reference Range Interpretation Comments B-TYPE NATRIURETIC PEPTIDE (test code = BNP) 86.51 pgram/mL 0-100 N COMPREHENSIVE METABOLIC [id number] 05:53:00* Test Item Value Reference Range Interpretation Comments SODIUM (test code = NA) 138 mmol/L 136-145 N POTASSIUM (test code = K) 3.5 mmol/L 3.5-5.1 N CHLORIDE (test code = CL) 102.0 mmol/L 98-107 N CARBON DIOXIDE (test code = CO2) 28.0 mmol/L 21-32 N ANION GAP (test code = GAP) 11.5 10-20 N GLUCOSE (test code = GLU) 288 mg/dL 74-106 H BLOOD UREA NITROGEN (test code = BUN) 42 mg/dL 7-18 H GLOMERULAR FILTRATION RATE (test code = GFR) 38 mL/min >=60 Estimated GFR by using Modified MDRD formula.Chronic kidney disease is defined as either kidney damageor GFR <60 mL/min/1.73 m2 for >3 months. CREATININE (test code = CREAT) 1.40 mg/dL 0.55-1.02 H Note change in reference range due to change in reagent. BUN/CREATININE RATIO (test code = BUN/CREA) 30.0 10-20 H TOTAL PROTEIN (test code = PROT) 6.5 gram/dL 6.4-8.2 N ALBUMIN (test code = ALB) 3.0 g/dL 3.4-5.0 L GLOBULIN (test code = GLOB) 3.5 gram/dL 2.7-4.2 N ALBUMIN/GLOBULIN RATIO (test code = A/G) 0.9 0.75-1.50 N CALCIUM (test code = CA) 9.0 mg/dL 8.5-10.1 N BILIRUBIN TOTAL (test code = BILT) 0.20 mg/dL 0.0-1.0 N SGOT/AST (test code = AST) 10 IUnit/L 15-37 L SGPT/ALT (test code = ALT) 29 IUnit/L 12-78 N ALKALINE PHOSPHATASE TOTAL (test code = ALKP) 55 IUnit/L 45-117 N Note change in reference range due to change in reagent. COMPREHENSIVE METABOLIC [id number] 05:37:00* Test Item Value Reference Range Interpretation Comments SODIUM (test code = NA) 138 mmol/L 136-145 N POTASSIUM (test code = K) 3.5 mmol/L 3.5-5.1 N CHLORIDE (test code = CL) 102.0 mmol/L 98-107 N CARBON DIOXIDE (test code = CO2) mmol/L 21-32 ANION GAP (test code = GAP) 10-20 GLUCOSE (test code = GLU) mg/dL 74-106 BLOOD UREA NITROGEN (test code = BUN) mg/dL 7-18 GLOMERULAR FILTRATION RATE (test code = GFR) mL/min >=60 CREATININE (test code = CREAT) mg/dL 0.55-1.02 BUN/CREATININE RATIO (test code = BUN/CREA) 10-20 TOTAL PROTEIN (test code = PROT) gram/dL 6.4-8.2 ALBUMIN (test code = ALB) g/dL 3.4-5.0 GLOBULIN (test code = GLOB) gram/dL 2.7-4.2 ALBUMIN/GLOBULIN RATIO (test code = A/G) 0.75-1.50 CALCIUM (test code = CA) mg/dL 8.5-10.1 BILIRUBIN TOTAL (test code = BILT) mg/dL 0.0-1.0 SGOT/AST (test code = AST) IUnit/L 15-37 SGPT/ALT (test code = ALT) IUnit/L 12-78 ALKALINE PHOSPHATASE TOTAL (test code = ALKP) IUnit/L 45-117 CBC W/AUTO [id number] 05:26:00* Test Item Value Reference Range Interpretation Comments WHITE BLOOD CELL (test code = WBC) 4.4 K/mm3 4.5-12.5 L RED BLOOD CELL (test code = RBC) 4.39 mill/mm3 3.7-5.2 N HEMOGLOBIN (test code = HGB) 10.9 gram/dL 11.5-15.5 L HEMATOCRIT (test code = HCT) 35.8 % 36.0-46.0 L MEAN CELL VOLUME (test code = MCV) 81.5 fL 80-98 N MEAN CELL HGB (test code = MCH) 24.8 picogram 27.0-33.0 L MEAN CELL HGB CONCETRATION (test code = MCHC) 30.4 gram/dL 33.0-36. 0 L RED CELL DISTRIBUTION WIDTH (test code = RDW) 15.0 % 11.6-16. 2 N RED CELL DISTRIBUTION WIDTH SD (test code = RDW-SD) 44.6 fL 37 .0-51.0 N PLATELET COUNT (test code = PLT) 155 K/mm3 150-450 N MEAN PLATELET VOLUME (test code = MPV) 10.5 fL 6.7-11.0 N NEUTROPHIL % (test code = NT%) 71.3 % 39.0-69.0 H IMMATURE GRANULOCYTE % (test code = IG%) 0.7 % 0.0-5.0 N LYMPHOCYTE % (test code = LY%) 20.2 % 25.0-55.0 L MONOCYTE % (test code = MO%) 7.1 % 0.0-10.0 N EOSINOPHIL % (test code = EO%) 0.2 % 0.0-5.0 N BASOPHIL % (test code = BA%) 0.5 % 0.0-1.0 N NUCLEATED RBC % (test code = NRBC%) 0.0 % 0-0 N NEUTROPHIL # (test code = NT#) 3.11 K/mm3 1.8-7.7 N IMMATURE GRANULOCYTE # (test code = IG#) 0.03 x10 3/uL 0-0.03 N LYMPHOCYTE # (test code = LY#) 0.88 K/mm3 1.0-5.0 L MONOCYTE # (test code = MO#) 0.31 K/mm3 0-0.8 N EOSINOPHIL # (test code = EO#) 0.01 K/mm3 0.0-0.5 N BASOPHIL # (test code = BA#) 0.02 K/mm3 0.0-0.2 N NUCLEATED RBC # (test code = NRBC#) 0.00 K/mm3 0.0-0.1 N MANUAL DIFF REQUIRED (test code = MDIFF) NO [id number] 02:25:00* Test Item Value Reference Range Interpretation Comments GLUBED (test code = GLUBED) 408 mg/dL 74-106 H Performed by certified glue spreading machine operator at [facility] [id number] 17:10:00* Test Item Value Reference Range Interpretation Comments GLUCOSE (test code = GLU) 536 mg/dL 74-106 HH Re sults called to [id number] by V.LAB.LT 06/10/19 1710Critical results verified and read back by Nurse? Y [id number] 16:05:00* Test Item Value Reference Range Interpretation Comments GLUBED (test code = GLUBED) > 500 mg/dL 74-106 HH [facility] glue spreading [facility]~ [id number] 11:05:00* Test Item Value Reference Range Interpretation Comments GLUBED (test code = GLUBED) 279 mg/dL 74-106 H Performed by certified glue spreading machine operator at [facility] BASIC METABOLIC [id number] 11:02:00* Test Item Value Reference Range Interpretation Comments SODIUM (test code = NA) 135 mmol/L 136-145 L POTASSIUM (test code = K) 4.0 mmol/L 3.5-5.1 N CHLORIDE (test code = CL) 102.0 mmol/L 98-107 N CARBON DIOXIDE (test code = CO2) 28.0 mmol/L 21-32 N ANION GAP (test code = GAP) 9.0 10-20 L GLUCOSE (test code = GLU) 330 mg/dL 74-106 H BLOOD UREA NITROGEN (test code = BUN) 35 mg/dL 7-18 H GLOMERULAR FILTRATION RATE (test code = GFR) 50 mL/min >=60 Estimated GFR by using Modified MDRD formula.Chronic kidney disease is defined as either kidney damageor GFR <60 mL/min/1.73 m2 for >3 months. CREATININE (test code = CREAT) 1.10 mg/dL 0.55-1.02 H Note change in reference range due to change in reagent. BUN/CREATININE RATIO (test code = BUN/CREA) 31.5 10-20 H CALCIUM (test code = CA) 8.9 mg/dL 8.5-10.1 N [id number] 11:02:00* Test Item Value Reference Range Interpretation Comments MAGNESIUM (test code = MAG) 2.0 mg/dL 1.8-2.4 N BASIC METABOLIC [id number] 10:52:00* Test Item Value Reference Range Interpretation Comments SODIUM (test code = NA) 135 mmol/L 136-145 L POTASSIUM (test code = K) 4.0 mmol/L 3.5-5.1 N CHLORIDE (test code = CL) 102.0 mmol/L 98-107 N CARBON DIOXIDE (test code = CO2) mmol/L 21-32 ANION GAP (test code = GAP) 10-20 GLUCOSE (test code = GLU) mg/dL 74-106 BLOOD UREA NITROGEN (test code = BUN) mg/dL 7-18 GLOMERULAR FILTRATION RATE (test code = GFR) mL/min >=60 CREATININE (test code = CREAT) mg/dL 0.55-1.02 BUN/CREATININE RATIO (test code = BUN/CREA) 10-20 CALCIUM (test code = CA) mg/dL 8.5-10.1 [id number] 10:52:00* Test Item Value Reference Range Interpretation Comments MAGNESIUM (test code = MAG) mg/dL 1.8-2.4 [id number] 07:27:00* Test Item Value Reference Range Interpretation Comments GLUBED (test code = GLUBED) 260 mg/dL 74-106 H Performed by certified glue spreading machine operator at [facility] [id number] 20:43:00* Test Item Value Reference Range Interpretation Comments GLUBED (test code = GLUBED) 417 mg/dL 74-106 H Performed by certified glue spreading machine operator at [facility] [id number] 15:54:00* Test Item Value Reference Range Interpretation Comments GLUBED (test code = GLUBED) 389 mg/dL 74-106 H Performed by certified glue spreading machine operator at [facility] [id number] 12:24:00* Test Item Value Reference Range Interpretation Comments GLUBED (test code = GLUBED) 389 mg/dL 74-106 H Performed by certified glue spreading machine operator at [facility] [id number] 07:56:00* Test Item Value Reference Range Interpretation Comments GLUBED (test code = GLUBED) 350 mg/dL 74-106 H Performed by certified glue spreading machine operator at [facility] [id number] 04:10:00* Test Item Value Reference Range Interpretation Comments GLUBED (test code = GLUBED) 427 mg/dL 74-106 H Performed by certified glue spreading machine operator at [facility] [id number] 19:56:00* Test Item Value Reference Range Interpretation Comments GLUBED (test code = GLUBED) 384 mg/dL 74-106 H Performed by certified glue spreading machine operator at [facility] [id number] 16:27:00* Test Item Value Reference Range Interpretation Comments GLUBED (test code = GLUBED) 378 mg/dL 74-106 H Performed by certified glue spreading machine operator at [facility] [id number] 12:06:00* Test Item Value Reference Range Interpretation Comments GLUBED (test code = GLUBED) 402 mg/dL 74-106 H Performed by certified glue spreading machine operator at [facility] [id number] 11:11:00* Test Item Value Reference Range Interpretation Comments TROPONIN-I (test code = TROPI) <0.015 ng/mL 0-0.045 N COMMENTS TO PATIENT EDUCATOR: COLLECT 3 HOURS AFTER PREVIOUS SAMPLEURINALYSIS [id number] 08:30:00* Test Item Value Reference Range Interpretation Comments UA COLOR (test code = COLU) Light-Yellow YELLOW UA APPEARANCE (test code = APPU) CLEAR CLEAR UA GLUCOSE DIPSTICK (test code = DGLUU) >1000 (4+) mg/dL NEGATIVE UA BILIRUBIN DIPSTICK (test code = BILU) NEGATIVE mg/dL NEGATIVE UA KETONE DIPSTICK (test code = KETU) NEGATIVE mg/dL NEGATIVE UA SPECIFIC GRAVITY (test code = SGU) 1.017 1.001-1.035 UA BLOOD DIPSTICK (test code = MONICA) Negative mg/dL NEGATIVE UA PH DIPSTICK (test code = VIVEK) 5.5 5.0-8.0 UA PROTEIN DIPSTICK (test code = PROU) NEGATIVE mg/dL NEGATIVE UA UROBILINIOGEN DIPSTICK (test code = URO) Normal mg/dL NEGATIVE UA NITRITE DIPSTICK (test code = GOYO) NEGATIVE NEGATIVE UA LEUKOCYTE ESTERASE W REFLEX (test code = LEUUR) NEGATIVE Kendra/uL NEGATIVE UA WBC (test code = WBCU) 0-5 per HPF 0-5 UA RBC (test code = RBCU) 0-2 #/HPF 0-5 UA EPITHELIAL CELLS (test code = EPIU) FEW per HPF FEW UA BACTERIA (test code = BACU) NONE SEEN #/HPF NONE UA HYALINE CAST (test code = HYALU) 0-2 #/LPF 0-5 UA MUCUS (test code = MUCU) FEW #/LPF FEW Urine Source? Clean [id number] 07:35:00* Test Item Value Reference Range Interpretation Comments TROPONIN-I (test code = TROPI) <0.015 ng/mL 0-0.045 N COMMENTS TO PATIENT EDUCATOR: COLLECT 3 HOURS AFTER PREVIOUS [id number] 06:35:00* Test Item Value Reference Range Interpretation Comments GLUBED (test code = GLUBED) 298 mg/dL 74-106 H Performed by certified glue spreading machine operator at [facility] BASIC METABOLIC [id number] 01:22:00* Test Item Value Reference Range Interpretation Comments SODIUM (test code = NA) 139 mmol/L 136-145 N POTASSIUM (test code = K) 4.0 mmol/L 3.5-5.1 N CHLORIDE (test code = CL) 104.0 mmol/L 98-107 N CARBON DIOXIDE (test code = CO2) 28.0 mmol/L 21-32 N ANION GAP (test code = GAP) 11.0 10-20 N GLUCOSE (test code = GLU) 283 mg/dL 74-106 H BLOOD UREA NITROGEN (test code = BUN) 42 mg/dL 7-18 H GLOMERULAR FILTRATION RATE (test code = GFR) 35 mL/min >=60 Estimated GFR by using Modified MDRD formula.Chronic kidney disease is defined as either kidney damageor GFR <60 mL/min/1.73 m2 for >3 months. CREATININE (test code = CREAT) 1.50 mg/dL 0.55-1.02 H Note change in reference range due to change in reagent. BUN/CREATININE RATIO (test code = BUN/CREA) 28.2 10-20 H CALCIUM (test code = CA) 8.5 mg/dL 8.5-10.1 N HEPATIC FUNCTION [id number] 01:22:00* Test Item Value Reference Range Interpretation Comments TOTAL PROTEIN (test code = PROT) 6.7 gram/dL 6.4-8.2 N ALBUMIN (test code = ALB) 3.0 g/dL 3.4-5.0 L GLOBULIN (test code = GLOB) 3.7 gram/dL 2.7-4.2 N ALBUMIN/GLOBULIN RATIO (test code = A/G) 0.8 0.75-1.50 N BILIRUBIN TOTAL (test code = BILT) 0.20 mg/dL 0.0-1.0 N BILIRUBIN DIRECT (test code = BILD) 0.11 mg/dL 0.0-0.20 N SGOT/AST (test code = AST) 12 IUnit/L 15-37 L SGPT/ALT (test code = ALT) 21 IUnit/L 12-78 N ALKALINE PHOSPHATASE TOTAL (test code = ALKP) 55 IUnit/L 45-117 N Note change in reference range due to change in reagent. [id number] 01:22:00* Test Item Value Reference Range Interpretation Comments LIPASE (test code = LIP) 143 U/L 73.0-393.0 N [id number] 01:22:00* Test Item Value Reference Range Interpretation Comments TROPONIN-I (test code = TROPI) <0.015 ng/mL 0-0.045 N BASIC METABOLIC [id number] 01:14:00* Test Item Value Reference Range Interpretation Comments SODIUM (test code = NA) 139 mmol/L 136-145 N POTASSIUM (test code = K) 4.0 mmol/L 3.5-5.1 N CHLORIDE (test code = CL) 104.0 mmol/L 98-107 N CARBON DIOXIDE (test code = CO2) mmol/L 21-32 ANION GAP (test code = GAP) 10-20 GLUCOSE (test code = GLU) mg/dL 74-106 BLOOD UREA NITROGEN (test code = BUN) mg/dL 7-18 GLOMERULAR FILTRATION RATE (test code = GFR) mL/min >=60 CREATININE (test code = CREAT) mg/dL 0.55-1.02 BUN/CREATININE RATIO (test code = BUN/CREA) 10-20 CALCIUM (test code = CA) mg/dL 8.5-10.1 HEPATIC FUNCTION [id number] 01:14:00* Test Item Value Reference Range Interpretation Comments TOTAL PROTEIN (test code = PROT) gram/dL 6.4-8.2 ALBUMIN (test code = ALB) g/dL 3.4-5.0 GLOBULIN (test code = GLOB) gram/dL 2.7-4.2 ALBUMIN/GLOBULIN RATIO (test code = A/G) 0.75-1.50 BILIRUBIN TOTAL (test code = BILT) mg/dL 0.0-1.0 BILIRUBIN DIRECT (test code = BILD) mg/dL 0.0-0.20 SGOT/AST (test code = AST) IUnit/L 15-37 SGPT/ALT (test code = ALT) IUnit/L 12-78 ALKALINE PHOSPHATASE TOTAL (test code = ALKP) IUnit/L 45-117 [id number] 01:14:00* Test Item Value Reference Range Interpretation Comments LIPASE (test code = LIP) U/L 73.0-393.0 [id number] 01:14:00* Test Item Value Reference Range Interpretation Comments TROPONIN-I (test code = TROPI) ng/mL 0-0.045 B-TYPE NATRIURETIC [id number] 00:16:00* Test Item Value Reference Range Interpretation Comments B-TYPE NATRIURETIC PEPTIDE (test code = BNP) 43.43 pgram/mL 0-100 N PROTHROMBIN [id number] 23:21:00* Test Item Value Reference Range Interpretation Comments PROTHROMBIN TIME PATIENT (test code = PTP) 12.0 seconds 9.0-14.0 N INTERNATIONAL NORMAL RATIO (test code = INR) 1.0 0.8-1.2 N The therapeutic range for oral anticoagulant therapy formost indications is an international normalized ratio (INR)of between 2.0 and 3.0. The recommended therapeutic INRrange for various clinical situations is listed below: Clinical Situation INR range Pulmonary e mbolism treatment (2.0-3.0)Venous thrombosis treatmentVenous thrombosis prophylaxis (high risk surgery)Prevention of systemic embolism from: Acute myocardial infarction Valvular heart disease Atrial fibrillation Mechanical prosthetic heart valves (2.5-3.5) IS PATIENT ON ANTICOAGULANTS? NTHROMBOPLASTIN TIME [id number] 23:21:00* Test Item Value Reference Range Interpretation Comments THROMBOPLASTIN TIME PARTIAL (test code = PTT) 28.8 seconds 25.0-36. 5 N IS PATIENT ON ANTICOAGULANTS? NCBC W/O [id number] 23:12:00* Test Item Value Reference Range Interpretation Comments WHITE BLOOD CELL (test code = WBC) 4.2 K/mm3 4.5-12.5 L RED BLOOD CELL (test code = RBC) 4.26 mill/mm3 3.7-5.2 N HEMOGLOBIN (test code = HGB) 10.6 gram/dL 11.5-15.5 L HEMATOCRIT (test code = HCT) 35.6 % 36.0-46.0 L MEAN CELL VOLUME (test code = MCV) 83.6 fL 80-98 N MEAN CELL HGB (test code = MCH) 24.9 picogram 27.0-33.0 L MEAN CELL HGB CONCETRATION (test code = MCHC) 29.8 gram/dL 33.0-36. 0 L RED CELL DISTRIBUTION WIDTH (test code = RDW) 15.6 % 11.6-16. 2 N PLATELET COUNT (test code = PLT) 171 K/mm3 150-450 N MEAN PLATELET VOLUME (test code = MPV) 10.9 fL 6.7-11.0 N - XR CHEST 1 [id number] 23:01:00 FAX: [facility], [place]: St: REG FAX: Anastacio Burgess MD Name: KALYANI TALAVERA [facility] : 1955 Age/S: 64/F Shukri Doll y Unit #: [id number] Loc: [place] [address] Phys: Anastacio Burgess MD Acct: [id number] Dis Date: Status: REG ER PHONE #: [phone] Exam Date: 06/07/2019 2250 FAX #: [phone] Reason: Abdominal Pain EXAMS: CPT CODE: [id number] XR CHEST 1 V [id number] EXAM: Chest x-ray, one view; INFORMATION: Vomiting; abdominal pain; FINDINGS: Increased densities of the left lung which may be due to edema or infiltrative changes. The right lung is slightly better aerated. Bilateral atelectatic changes. The heart is slightly enlarged. IMPRESSION: 1. Left pulmonary edema or possibly interstitial infiltrative changes and basilar atelectatic changes. 2. Mild cardiomegaly. Location code: [facility] at 2301 Reported and signed by: Jc Bravo M.D. CC: Lucille Nur MD; Anastacio Burgess MD Technologist: Marcelino Reid RT(R); SCOOBY PARSONS RT(R) Trnscrd Date/Time/By: 06/07/2019 (2300) : By: Leanne GRW Orig Print D/T: S: 06/07/2019 (8572) PAGE 1 Signed Report - CT HEAD/BRAIN W/O [id number] 13:15:00 Name: KALYANI TALAVERA [facility] : 1955 Age/S: 64 / F [address] [facility] Unit #: [id number] Loc: [place] [address] Phys: Jessenia Be MD Acct: [id number] Dis Date: Status: REG ER PHONE #: [phone] Exam Date: 05/31/2019 1246 FAX #: [phone] Reason: pain, trauma EXAMS: CPT CODE: [id number] CT HEAD/BRAIN W/O CONT 32502 HISTORY: pain, trauma TECHNIQUE: Noncontrast 2.[address] of the head. Examination acquired within 24 hours of arrival. Automated exposure control for dose reduction. COMPARISON: Noncontrast CT brain May 17, 2019 FINDINGS: No lacerations or contusions of the scalp or facial soft tissues. Calvarium and skull base are intact. No acute hemorrhage. No intracranial mass, mass effect, or midline shift. No effacement of the sulci or rodriguez-white matter interface. Mild cortical atrophy appears similar to the prior examination. No hydrocephalus.. No extra-axial fluid collection. Visualized paranasal sinuses are clear. Mastoid air cells and middle ear cavities are clear. Orbital contents are unremarkable. IMPRESSION: No acute intracranial process. Specifically no intracranial hemorrhage. Mild cortical atrophy is unchanged from the prior examination. Location: [facility] at 1315 Reported and signed by: Dago Goodson MD CC: Lucille Land MD; Jessenia Be MD Technologist:Kael Bhardwaj RT(R) CTDI: DLP: Trnscb Date/Time: 05/31/2019 (131) t.SDR.RR31 Orig Print D/T: S: 05/31/2019 (9426) PAGE 1 Signed Report GLUBED 2019-05-31 12:02:00* Test Item Value Reference Range Interpretation Comments GLUBED (test code = GLUBED) 200 mg/dL 74-106 H Performed by certified glue spreading machine operator at [facility] [id number] 09:10:00* Test Item Value Reference Range Interpretation Comments GLUBED (test code = GLUBED) 83 mg/dL 74-106 N Performed by certified glue spreading machine operator at [facility] [id number] 11:47:00* Test Item Value Reference Range Interpretation Comments GLUBED (test code = GLUBED) 192 mg/dL 74-106 H Performed by certified glue spreading machine operator at [facility] [id number] 07:59:00* Test Item Value Reference Range Interpretation Comments GLUBED (test code = GLUBED) 164 mg/dL 74-106 H Performed by certified glue spreading machine operator at [facility] [id number] 21:14:00* Test Item Value Reference Range Interpretation Comments GLUBED (test code = GLUBED) 215 mg/dL 74-106 H Performed by certified glue spreading machine operator at [facility] [id number] 15:34:00* Test Item Value Reference Range Interpretation Comments GLUBED (test code = GLUBED) 130 mg/dL 74-106 H Performed by certified glue spreading machine operator at [facility] [id number] 12:10:00* Test Item Value Reference Range Interpretation Comments GLUBED (test code = GLUBED) 231 mg/dL 74-106 H Performed by certified glue spreading machine operator at [facility]2019-10-31 08:38:00* Test Item Value Reference Range Interpretation Comments GLUBED (test code = GLUBED) 173 mg/dL 74-106 H Performed by certified glue spreading machine operator at [facility]2019-10-30 20:39:00* Test Item Value Reference Range Interpretation Comments GLUBED (test code = GLUBED) 129 mg/dL 74-106 H Performed by certified glue spreading machine operator at [facility]2019-10-30 16:16:00* Test Item Value Reference Range Interpretation Comments GLUBED (test code = GLUBED) 337 mg/dL 74-106 H Performed by certified glue spreading machine operator at [facility]2019-10-30 12:15:00* Test Item Value Reference Range Interpretation Comments GLUBED (test code = GLUBED) 247 mg/dL 74-106 H Performed by certified glue spreading machine operator at [facility]2019-10-30 08:03:00* Test Item Value Reference Range Interpretation Comments GLUBED (test code = GLUBED) 170 mg/dL 74-106 H Performed by certified glue spreading machine operator at [facility]2019-10-29 20:11:00* Test Item Value Reference Range Interpretation Comments GLUBED (test code = GLUBED) 244 mg/dL 74-106 H Performed by certified glue spreading machine operator at [facility] [id number] 17:36:00* Test Item Value Reference Range Interpretation Comments GLUBED (test code = GLUBED) 238 mg/dL 74-106 H Performed by certified glue spreading machine operator at [facility] [id number] 16:06:00* Test Item Value Reference Range Interpretation Comments GLUBED (test code = GLUBED) 196 mg/dL 74-106 H Performed by certified glue spreading machine operator at [facility] [id number] 12:42:00* Test Item Value Reference Range Interpretation Comments GLUBED (test code = GLUBED) 292 mg/dL 74-106 H Performed by certified glue spreading machine operator at [facility] [id number] 09:09:00* Test Item Value Reference Range Interpretation Comments GLUBED (test code = GLUBED) 196 mg/dL 74-106 H Performed by certified glue spreading machine operator at [facility] [id number] 20:30:00* Test Item Value Reference Range Interpretation Comments GLUBED (test code = GLUBED) 213 mg/dL 74-106 H Performed by certified glue spreading machine operator at [facility] [id number] 18:23:00* Test Item Value Reference Range Interpretation Comments GLUBED (test code = GLUBED) 102 mg/dL 74-106 N Performed by certified glue spreading machine operator at [facility] [id number] 17:02:00* Test Item Value Reference Range Interpretation Comments GLUBED (test code = GLUBED) 181 mg/dL 74-106 H Performed by certified glue spreading machine operator at [facility] BASIC METABOLIC [id number] 15:17:00* Test Item Value Reference Range Interpretation Comments SODIUM (test code = NA) 141 mmol/L 136-145 N POTASSIUM (test code = K) 3.8 mmol/L 3.5-5.1 N CHLORIDE (test code = CL) 102.0 mmol/L 98-107 N CARBON DIOXIDE (test code = CO2) 31.0 mmol/L 21-32 N ANION GAP (test code = GAP) 11.8 10-20 N GLUCOSE (test code = GLU) 270 mg/dL 74-106 H BLOOD UREA NITROGEN (test code = BUN) 36 mg/dL 7-18 H GLOMERULAR FILTRATION RATE (test code = GFR) 35 mL/min >=60 Estimated GFR by using Modified MDRD formula.Chronic kidney disease is defined as either kidney damageor GFR <60 mL/min/1.73 m2 for >3 months. CREATININE (test code = CREAT) 1.50 mg/dL 0.55-1.02 H Note change in reference range due to change in reagent. BUN/CREATININE RATIO (test code = BUN/CREA) 24.3 10-20 H CALCIUM (test code = CA) 9.3 mg/dL 8.5-10.1 N BASIC METABOLIC [id number] 15:08:00* Test Item Value Reference Range Interpretation Comments SODIUM (test code = NA) 141 mmol/L 136-145 N POTASSIUM (test code = K) 3.8 mmol/L 3.5-5.1 N CHLORIDE (test code = CL) 102.0 mmol/L 98-107 N CARBON DIOXIDE (test code = CO2) mmol/L 21-32 ANION GAP (test code = GAP) 10-20 GLUCOSE (test code = GLU) mg/dL 74-106 BLOOD UREA NITROGEN (test code = BUN) mg/dL 7-18 GLOMERULAR FILTRATION RATE (test code = GFR) mL/min >=60 CREATININE (test code = CREAT) mg/dL 0.55-1.02 BUN/CREATININE RATIO (test code = BUN/CREA) 10-20 CALCIUM (test code = CA) mg/dL 8.5-10.1 [id number] 12:53:00* Test Item Value Reference Range Interpretation Comments GLUBED (test code = GLUBED) 262 mg/dL 74-106 H Performed by certified glue spreading machine operator at [facility] [id number] 08:22:00* Test Item Value Reference Range Interpretation Comments GLUBED (test code = GLUBED) 198 mg/dL 74-106 H Performed by certified glue spreading machine operator at [facility] CBC W/AUTO [id number] 06:43:00* Test Item Value Reference Range Interpretation Comments WHITE BLOOD CELL (test code = WBC) 7.7 K/mm3 4.5-12.5 N RED BLOOD CELL (test code = RBC) 4.76 mill/mm3 3.7-5.2 N HEMOGLOBIN (test code = HGB) 11.7 gram/dL 11.5-15.5 N HEMATOCRIT (test code = HCT) 40.9 % 36.0-46.0 N MEAN CELL VOLUME (test code = MCV) 85.9 fL 80-98 N MEAN CELL HGB (test code = MCH) 24.6 picogram 27.0-33.0 L MEAN CELL HGB CONCETRATION (test code = MCHC) 28.6 gram/dL 33.0-36. 0 L RED CELL DISTRIBUTION WIDTH (test code = RDW) 14.9 % 11.6-16. 2 N RED CELL DISTRIBUTION WIDTH SD (test code = RDW-SD) 46.6 fL 37 .0-51.0 N PLATELET COUNT (test code = PLT) 180 K/mm3 150-450 N MEAN PLATELET VOLUME (test code = MPV) 10.4 fL 6.7-11.0 N NEUTROPHIL % (test code = NT%) 62.0 % 39.0-69.0 N IMMATURE GRANULOCYTE % (test code = IG%) 0.7 % 0.0-5.0 N LYMPHOCYTE % (test code = LY%) 22.7 % 25.0-55.0 L MONOCYTE % (test code = MO%) 8.3 % 0.0-10.0 N EOSINOPHIL % (test code = EO%) 5.3 % 0.0-5.0 H BASOPHIL % (test code = BA%) 1.0 % 0.0-1.0 N NUCLEATED RBC % (test code = NRBC%) 0.0 % 0-0 N NEUTROPHIL # (test code = NT#) 4.75 K/mm3 1.8-7.7 N IMMATURE GRANULOCYTE # (test code = IG#) 0.05 x10 3/uL 0-0.03 H LYMPHOCYTE # (test code = LY#) 1.74 K/mm3 1.0-5.0 N MONOCYTE # (test code = MO#) 0.64 K/mm3 0-0.8 N EOSINOPHIL # (test code = EO#) 0.41 K/mm3 0.0-0.5 N BASOPHIL # (test code = BA#) 0.08 K/mm3 0.0-0.2 N NUCLEATED RBC # (test code = NRBC#) 0.00 K/mm3 0.0-0.1 N MANUAL DIFF REQUIRED (test code = MDIFF) NO, ONLY SCAN NEEDED DIFFERENTIAL [id number] 06:43:00* Test Item Value Reference Range Interpretation Comments STAIN ACCEPTABILITY (test code = STN ACCEPTABLE) STAIN ACCEPTABLE MORPHOLOGY COMMENT (test code = MOC) NORMAL PLATELET ESTIMATE (test code = PLTEST) ADEQUATE PLATELET MORPHOLOGY (test code = PLTMORPH) NORMAL COMPREHENSIVE METABOLIC [id number] 05:19:00* Test Item Value Reference Range Interpretation Comments SODIUM (test code = NA) 140 mmol/L 136-145 N POTASSIUM (test code = K) 4.0 mmol/L 3.5-5.1 N CHLORIDE (test code = CL) 103.0 mmol/L 98-107 N CARBON DIOXIDE (test code = CO2) 30.0 mmol/L 21-32 N ANION GAP (test code = GAP) 11.0 10-20 N GLUCOSE (test code = GLU) 158 mg/dL 74-106 H BLOOD UREA NITROGEN (test code = BUN) 38 mg/dL 7-18 H GLOMERULAR FILTRATION RATE (test code = GFR) 45 mL/min >=60 Estimated GFR by using Modified MDRD formula.Chronic kidney disease is defined as either kidney damageor GFR <60 mL/min/1.73 m2 for >3 months. CREATININE (test code = CREAT) 1.20 mg/dL 0.55-1.02 H Note change in reference range due to change in reagent. BUN/CREATININE RATIO (test code = BUN/CREA) 32.5 10-20 H TOTAL PROTEIN (test code = PROT) 6.9 gram/dL 6.4-8.2 N ALBUMIN (test code = ALB) 3.2 g/dL 3.4-5.0 L GLOBULIN (test code = GLOB) 3.7 gram/dL 2.7-4.2 N ALBUMIN/GLOBULIN RATIO (test code = A/G) 0.9 0.75-1.50 N CALCIUM (test code = CA) 9.2 mg/dL 8.5-10.1 N BILIRUBIN TOTAL (test code = BILT) 0.30 mg/dL 0.0-1.0 N SGOT/AST (test code = AST) 14 IUnit/L 15-37 L SGPT/ALT (test code = ALT) 37 IUnit/L 12-78 N ALKALINE PHOSPHATASE TOTAL (test code = ALKP) 66 IUnit/L 45-117 N Note change in reference range due to change in reagent. COMPREHENSIVE METABOLIC [id number] 05:11:00* Test Item Value Reference Range Interpretation Comments SODIUM (test code = NA) 140 mmol/L 136-145 N POTASSIUM (test code = K) 4.0 mmol/L 3.5-5.1 N CHLORIDE (test code = CL) 103.0 mmol/L 98-107 N CARBON DIOXIDE (test code = CO2) mmol/L 21-32 ANION GAP (test code = GAP) 10-20 GLUCOSE (test code = GLU) mg/dL 74-106 BLOOD UREA NITROGEN (test code = BUN) mg/dL 7-18 GLOMERULAR FILTRATION RATE (test code = GFR) mL/min >=60 CREATININE (test code = CREAT) mg/dL 0.55-1.02 BUN/CREATININE RATIO (test code = BUN/CREA) 10-20 TOTAL PROTEIN (test code = PROT) gram/dL 6.4-8.2 ALBUMIN (test code = ALB) g/dL 3.4-5.0 GLOBULIN (test code = GLOB) gram/dL 2.7-4.2 ALBUMIN/GLOBULIN RATIO (test code = A/G) 0.75-1.50 CALCIUM (test code = CA) mg/dL 8.5-10.1 BILIRUBIN TOTAL (test code = BILT) mg/dL 0.0-1.0 SGOT/AST (test code = AST) IUnit/L 15-37 SGPT/ALT (test code = ALT) IUnit/L 12-78 ALKALINE PHOSPHATASE TOTAL (test code = ALKP) IUnit/L 45-117 CBC W/AUTO [id number] 04:49:00* Test Item Value Reference Range Interpretation Comments WHITE BLOOD CELL (test code = WBC) 7.7 K/mm3 4.5-12.5 N RED BLOOD CELL (test code = RBC) 4.76 mill/mm3 3.7-5.2 N HEMOGLOBIN (test code = HGB) 11.7 gram/dL 11.5-15.5 N HEMATOCRIT (test code = HCT) 40.9 % 36.0-46.0 N MEAN CELL VOLUME (test code = MCV) 85.9 fL 80-98 N MEAN CELL HGB (test code = MCH) 24.6 picogram 27.0-33.0 L MEAN CELL HGB CONCETRATION (test code = MCHC) 28.6 gram/dL 33.0-36. 0 L RED CELL DISTRIBUTION WIDTH (test code = RDW) 14.9 % 11.6-16. 2 N RED CELL DISTRIBUTION WIDTH SD (test code = RDW-SD) 46.6 fL 37 .0-51.0 N PLATELET COUNT (test code = PLT) 180 K/mm3 150-450 N MEAN PLATELET VOLUME (test code = MPV) 10.4 fL 6.7-11.0 N NEUTROPHIL % (test code = NT%) 62.0 % 39.0-69.0 N IMMATURE GRANULOCYTE % (test code = IG%) 0.7 % 0.0-5.0 N LYMPHOCYTE % (test code = LY%) 22.7 % 25.0-55.0 L MONOCYTE % (test code = MO%) 8.3 % 0.0-10.0 N EOSINOPHIL % (test code = EO%) 5.3 % 0.0-5.0 H BASOPHIL % (test code = BA%) 1.0 % 0.0-1.0 N NUCLEATED RBC % (test code = NRBC%) 0.0 % 0-0 N NEUTROPHIL # (test code = NT#) 4.75 K/mm3 1.8-7.7 N IMMATURE GRANULOCYTE # (test code = IG#) 0.05 x10 3/uL 0-0.03 H LYMPHOCYTE # (test code = LY#) 1.74 K/mm3 1.0-5.0 N MONOCYTE # (test code = MO#) 0.64 K/mm3 0-0.8 N EOSINOPHIL # (test code = EO#) 0.41 K/mm3 0.0-0.5 N BASOPHIL # (test code = BA#) 0.08 K/mm3 0.0-0.2 N NUCLEATED RBC # (test code = NRBC#) 0.00 K/mm3 0.0-0.1 N MANUAL DIFF REQUIRED (test code = MDIFF) NO, ONLY SCAN NEEDED DIFFERENTIAL [id number] 04:49:00* Test Item Value Reference Range Interpretation Comments STAIN ACCEPTABILITY (test code = STN ACCEPTABLE) CABOT RINGS (test code = CAB) MORPHOLOGY COMMENT (test code = MOC) PLATELET ESTIMATE (test code = PLTEST) PLATELET MORPHOLOGY (test code = PLTMORPH) CBC W/AUTO [id number] 04:49:00* Test Item Value Reference Range Interpretation Comments WHITE BLOOD CELL (test code = WBC) 7.7 K/mm3 4.5-12.5 N RED BLOOD CELL (test code = RBC) 4.76 mill/mm3 3.7-5.2 N HEMOGLOBIN (test code = HGB) 11.7 gram/dL 11.5-15.5 N HEMATOCRIT (test code = HCT) 40.9 % 36.0-46.0 N MEAN CELL VOLUME (test code = MCV) 85.9 fL 80-98 N MEAN CELL HGB (test code = MCH) 24.6 picogram 27.0-33.0 L MEAN CELL HGB CONCETRATION (test code = MCHC) 28.6 gram/dL 33.0-36. 0 L RED CELL DISTRIBUTION WIDTH (test code = RDW) 14.9 % 11.6-16. 2 N RED CELL DISTRIBUTION WIDTH SD (test code = RDW-SD) 46.6 fL 37 .0-51.0 N PLATELET COUNT (test code = PLT) 180 K/mm3 150-450 N MEAN PLATELET VOLUME (test code = MPV) 10.4 fL 6.7-11.0 N NEUTROPHIL % (test code = NT%) 62.0 % 39.0-69.0 N IMMATURE GRANULOCYTE % (test code = IG%) 0.7 % 0.0-5.0 N LYMPHOCYTE % (test code = LY%) 22.7 % 25.0-55.0 L MONOCYTE % (test code = MO%) 8.3 % 0.0-10.0 N EOSINOPHIL % (test code = EO%) 5.3 % 0.0-5.0 H BASOPHIL % (test code = BA%) 1.0 % 0.0-1.0 N NUCLEATED RBC % (test code = NRBC%) 0.0 % 0-0 N NEUTROPHIL # (test code = NT#) 4.75 K/mm3 1.8-7.7 N IMMATURE GRANULOCYTE # (test code = IG#) 0.05 x10 3/uL 0-0.03 H LYMPHOCYTE # (test code = LY#) 1.74 K/mm3 1.0-5.0 N MONOCYTE # (test code = MO#) 0.64 K/mm3 0-0.8 N EOSINOPHIL # (test code = EO#) 0.41 K/mm3 0.0-0.5 N BASOPHIL # (test code = BA#) 0.08 K/mm3 0.0-0.2 N NUCLEATED RBC # (test code = NRBC#) 0.00 K/mm3 0.0-0.1 N MANUAL DIFF REQUIRED (test code = MDIFF) NO, ONLY SCAN NEEDED DIFFERENTIAL [id number] 04:49:00* Test Item Value Reference Range Interpretation Comments STAIN ACCEPTABILITY (test code = STN ACCEPTABLE) CABOT RINGS (test code = CAB) MORPHOLOGY COMMENT (test code = MOC) PLATELET ESTIMATE (test code = PLTEST) PLATELET MORPHOLOGY (test code = PLTMORPH) CBC W/AUTO [id number] 04:49:00* Test Item Value Reference Range Interpretation Comments WHITE BLOOD CELL (test code = WBC) 7.7 K/mm3 4.5-12.5 N RED BLOOD CELL (test code = RBC) 4.76 mill/mm3 3.7-5.2 N HEMOGLOBIN (test code = HGB) 11.7 gram/dL 11.5-15.5 N HEMATOCRIT (test code = HCT) 40.9 % 36.0-46.0 N MEAN CELL VOLUME (test code = MCV) 85.9 fL 80-98 N MEAN CELL HGB (test code = MCH) 24.6 picogram 27.0-33.0 L MEAN CELL HGB CONCETRATION (test code = MCHC) 28.6 gram/dL 33.0-36. 0 L RED CELL DISTRIBUTION WIDTH (test code = RDW) 14.9 % 11.6-16. 2 N RED CELL DISTRIBUTION WIDTH SD (test code = RDW-SD) 46.6 fL 37 .0-51.0 N PLATELET COUNT (test code = PLT) 180 K/mm3 150-450 N MEAN PLATELET VOLUME (test code = MPV) 10.4 fL 6.7-11.0 N NEUTROPHIL % (test code = NT%) 62.0 % 39.0-69.0 N IMMATURE GRANULOCYTE % (test code = IG%) 0.7 % 0.0-5.0 N LYMPHOCYTE % (test code = LY%) 22.7 % 25.0-55.0 L MONOCYTE % (test code = MO%) 8.3 % 0.0-10.0 N EOSINOPHIL % (test code = EO%) 5.3 % 0.0-5.0 H BASOPHIL % (test code = BA%) 1.0 % 0.0-1.0 N NUCLEATED RBC % (test code = NRBC%) 0.0 % 0-0 N NEUTROPHIL # (test code = NT#) 4.75 K/mm3 1.8-7.7 N IMMATURE GRANULOCYTE # (test code = IG#) 0.05 x10 3/uL 0-0.03 H LYMPHOCYTE # (test code = LY#) 1.74 K/mm3 1.0-5.0 N MONOCYTE # (test code = MO#) 0.64 K/mm3 0-0.8 N EOSINOPHIL # (test code = EO#) 0.41 K/mm3 0.0-0.5 N BASOPHIL # (test code = BA#) 0.08 K/mm3 0.0-0.2 N NUCLEATED RBC # (test code = NRBC#) 0.00 K/mm3 0.0-0.1 N MANUAL DIFF REQUIRED (test code = MDIFF) NO, ONLY SCAN NEEDED DIFFERENTIAL [id number] 04:49:00* Test Item Value Reference Range Interpretation Comments STAIN ACCEPTABILITY (test code = STN ACCEPTABLE) MORPHOLOGY COMMENT (test code = MOC) PLATELET ESTIMATE (test code = PLTEST) PLATELET MORPHOLOGY (test code = PLTMORPH) CBC W/AUTO [id number] 04:49:00* Test Item Value Reference Range Interpretation Comments WHITE BLOOD CELL (test code = WBC) 7.7 K/mm3 4.5-12.5 N RED BLOOD CELL (test code = RBC) 4.76 mill/mm3 3.7-5.2 N HEMOGLOBIN (test code = HGB) 11.7 gram/dL 11.5-15.5 N HEMATOCRIT (test code = HCT) 40.9 % 36.0-46.0 N MEAN CELL VOLUME (test code = MCV) 85.9 fL 80-98 N MEAN CELL HGB (test code = MCH) 24.6 picogram 27.0-33.0 L MEAN CELL HGB CONCETRATION (test code = MCHC) 28.6 gram/dL 33.0-36. 0 L RED CELL DISTRIBUTION WIDTH (test code = RDW) 14.9 % 11.6-16. 2 N RED CELL DISTRIBUTION WIDTH SD (test code = RDW-SD) 46.6 fL 37 .0-51.0 N PLATELET COUNT (test code = PLT) 180 K/mm3 150-450 N MEAN PLATELET VOLUME (test code = MPV) 10.4 fL 6.7-11.0 N NEUTROPHIL % (test code = NT%) 62.0 % 39.0-69.0 N IMMATURE GRANULOCYTE % (test code = IG%) 0.7 % 0.0-5.0 N LYMPHOCYTE % (test code = LY%) 22.7 % 25.0-55.0 L MONOCYTE % (test code = MO%) 8.3 % 0.0-10.0 N EOSINOPHIL % (test code = EO%) 5.3 % 0.0-5.0 H BASOPHIL % (test code = BA%) 1.0 % 0.0-1.0 N NUCLEATED RBC % (test code = NRBC%) 0.0 % 0-0 N NEUTROPHIL # (test code = NT#) 4.75 K/mm3 1.8-7.7 N IMMATURE GRANULOCYTE # (test code = IG#) 0.05 x10 3/uL 0-0.03 H LYMPHOCYTE # (test code = LY#) 1.74 K/mm3 1.0-5.0 N MONOCYTE # (test code = MO#) 0.64 K/mm3 0-0.8 N EOSINOPHIL # (test code = EO#) 0.41 K/mm3 0.0-0.5 N BASOPHIL # (test code = BA#) 0.08 K/mm3 0.0-0.2 N NUCLEATED RBC # (test code = NRBC#) 0.00 K/mm3 0.0-0.1 N MANUAL DIFF REQUIRED (test code = MDIFF) NO, ONLY SCAN NEEDED DIFFERENTIAL [id number] 04:49:00* Test Item Value Reference Range Interpretation Comments STAIN ACCEPTABILITY (test code = STN ACCEPTABLE) CABOT RINGS (test code = CAB) MORPHOLOGY COMMENT (test code = MOC) PLATELET ESTIMATE (test code = PLTEST) PLATELET MORPHOLOGY (test code = PLTMORPH) [id number] 21:00:00* Test Item Value Reference Range Interpretation Comments GLUBED (test code = GLUBED) 245 mg/dL 74-106 H Performed by certified glue spreading machine operator at [facility] [id number] 17:03:00* Test Item Value Reference Range Interpretation Comments GLUBED (test code = GLUBED) 110 mg/dL 74-106 H Performed by certified glue spreading machine operator at [facility] [id number] 13:56:00* Test Item Value Reference Range Interpretation Comments MAGNESIUM (test code = MAG) 2.4 mg/dL 1.8-2.4 N [id number] 11:32:00* Test Item Value Reference Range Interpretation Comments GLUBED (test code = GLUBED) 327 mg/dL 74-106 H Performed by certified glue spreading machine operator at [facility] [id number] 07:46:00* Test Item Value Reference Range Interpretation Comments GLUBED (test code = GLUBED) 294 mg/dL 74-106 H Performed by certified glue spreading machine operator at [facility] COMPREHENSIVE METABOLIC [id number] 05:18:00* Test Item Value Reference Range Interpretation Comments SODIUM (test code = NA) 139 mmol/L 136-145 N POTASSIUM (test code = K) 4.0 mmol/L 3.5-5.1 N CHLORIDE (test code = CL) 101.0 mmol/L 98-107 N CARBON DIOXIDE (test code = CO2) 31.0 mmol/L 21-32 N ANION GAP (test code = GAP) 11.0 10-20 N GLUCOSE (test code = GLU) 292 mg/dL 74-106 H BLOOD UREA NITROGEN (test code = BUN) 42 mg/dL 7-18 H GLOMERULAR FILTRATION RATE (test code = GFR) 41 mL/min >=60 Estimated GFR by using Modified MDRD formula.Chronic kidney disease is defined as either kidney damageor GFR <60 mL/min/1.73 m2 for >3 months. CREATININE (test code = CREAT) 1.30 mg/dL 0.55-1.02 H Note change in reference range due to change in reagent. BUN/CREATININE RATIO (test code = BUN/CREA) 33.1 10-20 H TOTAL PROTEIN (test code = PROT) 6.7 gram/dL 6.4-8.2 N ALBUMIN (test code = ALB) 3.2 g/dL 3.4-5.0 L GLOBULIN (test code = GLOB) 3.5 gram/dL 2.7-4.2 N ALBUMIN/GLOBULIN RATIO (test code = A/G) 0.9 0.75-1.50 N CALCIUM (test code = CA) 9.0 mg/dL 8.5-10.1 N BILIRUBIN TOTAL (test code = BILT) 0.40 mg/dL 0.0-1.0 N SGOT/AST (test code = AST) 11 IUnit/L 15-37 L SGPT/ALT (test code = ALT) 47 IUnit/L 12-78 N ALKALINE PHOSPHATASE TOTAL (test code = ALKP) 66 IUnit/L 45-117 N Note change in reference range due to change in reagent. LIPID PROFILE (CORONARY RISK)2019-05-19 05:18:00* Test Item Value Reference Range Interpretation Comments TRIGLYCERIDES (test code = TRIG) 143 mg/dL 20-150 N CHOLESTEROL (test code = CHOL) 158 mg/dL 0-200 N CHOLESTEROL/HDL RATIO (test code = CHOLHDL) 5.0 RATIO 0-4.9 H RISK ASSOCIATED WITH CHOL/HDL RATIOS: Risk Male Female1/2 AVERAGE 3.43 3.27AVERAGE 4.97 4.442X AVERAGE 9.55 7.053X AVERAGE 23.39 11.04 REFERENCE VALUE IS RELATED TO RISK LEVELS ASRECOMMENDED BY THE [facility]. HEART, LUNG, AND BLOOD INST. HDL CHOLESTEROL (test code = HDL) 30 mg/dL 40-60 L LIPOPROTEIN LDL (test code = LDL) 114 mg/dL 100-129 N RN PERSONNEL, CONTACT PHYSICIAN IMMEDIATELY IF THIS IS A STROKE, AMI OR CAROTID STENOSIS PATIENT WHEN THE LDL >100 (1ST OCCURENCE, THIS ADMISSION) Reference Interval: mg/dL mmol/L Optimal <100 <2.6Near/above optimal 100-129 2.6- 3.3Borderline High 130-159 3.4-4.1High 160-189 4.1-4.9Very High >=190 >=4.9========= This LDL result is a direct measurement.========= THYROID STIMULATING [id number] 05:18:00* Test Item Value Reference Range Interpretation Comments THYROID STIMULATING HORMONE (test code = TSH) 2.610 uIU/mL 0.36-3.7 4 N TSH REFERENCE RANGES: EUTHYROID: 0.35 - 4.3 mIU/mL HYPO : > 5.5 mIU/mL HYPER : < 0.35 mIU/mL [id number] 05:18:00* Test Item Value Reference Range Interpretation Comments GLYCOSYLATED HEMOGLOBIN (HA1C) (test code = GLYHGB) 9.0 % HbA1 4. 8-6.0 H ESTIMATED AVERAGE GLUCOSE (test code = EAG) 212 MG/DL CBC W/AUTO [id number] 04:33:00* Test Item Value Reference Range Interpretation Comments WHITE BLOOD CELL (test code = WBC) K/mm3 4.5-12.5 RED BLOOD CELL (test code = RBC) mill/mm3 3.7-5.2 HEMOGLOBIN (test code = HGB) 11.5 gram/dL 11.5-15.5 N HEMATOCRIT (test code = HCT) 37.9 % 36.0-46.0 N MEAN CELL VOLUME (test code = MCV) fL 80-98 MEAN CELL HGB (test code = MCH) picogram 27.0-33.0 MEAN CELL HGB CONCETRATION (test code = MCHC) gram/dL 33.0-36. 0 RED CELL DISTRIBUTION WIDTH (test code = RDW) % 11.6-16. 2 RED CELL DISTRIBUTION WIDTH SD (test code = RDW-SD) fL 37 .0-51.0 PLATELET COUNT (test code = PLT) K/mm3 150-450 MEAN PLATELET VOLUME (test code = MPV) fL 6.7-11.0 NEUTROPHIL % (test code = NT%) % 39.0-69.0 IMMATURE GRANULOCYTE % (test code = IG%) % 0.0-5.0 LYMPHOCYTE % (test code = LY%) % 25.0-55.0 MONOCYTE % (test code = MO%) % 0.0-10.0 EOSINOPHIL % (test code = EO%) % 0.0-5.0 BASOPHIL % (test code = BA%) % 0.0-1.0 NEUTROPHIL # (test code = NT#) K/mm3 1.8-7.7 LYMPHOCYTE # (test code = LY#) K/mm3 1.0-5.0 MONOCYTE # (test code = MO#) K/mm3 0-0.8 EOSINOPHIL # (test code = EO#) K/mm3 0.0-0.5 BASOPHIL # (test code = BA#) K/mm3 0.0-0.2 CBC W/AUTO [id number] 04:33:00* Test Item Value Reference Range Interpretation Comments WHITE BLOOD CELL (test code = WBC) 5.6 K/mm3 4.5-12.5 N RED BLOOD CELL (test code = RBC) 4.58 mill/mm3 3.7-5.2 N HEMOGLOBIN (test code = HGB) 11.5 gram/dL 11.5-15.5 N HEMATOCRIT (test code = HCT) 37.9 % 36.0-46.0 N MEAN CELL VOLUME (test code = MCV) 82.8 fL 80-98 N MEAN CELL HGB (test code = MCH) 25.1 picogram 27.0-33.0 L MEAN CELL HGB CONCETRATION (test code = MCHC) 30.3 gram/dL 33.0-36. 0 L RED CELL DISTRIBUTION WIDTH (test code = RDW) 15.3 % 11.6-16. 2 N RED CELL DISTRIBUTION WIDTH SD (test code = RDW-SD) 45.9 fL 37 .0-51.0 N PLATELET COUNT (test code = PLT) 182 K/mm3 150-450 N MEAN PLATELET VOLUME (test code = MPV) 11.3 fL 6.7-11.0 H NEUTROPHIL % (test code = NT%) 60.7 % 39.0-69.0 N IMMATURE GRANULOCYTE % (test code = IG%) 1.1 % 0.0-5.0 N LYMPHOCYTE % (test code = LY%) 24.4 % 25.0-55.0 L MONOCYTE % (test code = MO%) 6.3 % 0.0-10.0 N EOSINOPHIL % (test code = EO%) 6.6 % 0.0-5.0 H BASOPHIL % (test code = BA%) 0.9 % 0.0-1.0 N NUCLEATED RBC % (test code = NRBC%) 0.0 % 0-0 N NEUTROPHIL # (test code = NT#) 3.38 K/mm3 1.8-7.7 N IMMATURE GRANULOCYTE # (test code = IG#) 0.06 x10 3/uL 0-0.03 H LYMPHOCYTE # (test code = LY#) 1.36 K/mm3 1.0-5.0 N MONOCYTE # (test code = MO#) 0.35 K/mm3 0-0.8 N EOSINOPHIL # (test code = EO#) 0.37 K/mm3 0.0-0.5 N BASOPHIL # (test code = BA#) 0.05 K/mm3 0.0-0.2 N NUCLEATED RBC # (test code = NRBC#) 0.00 K/mm3 0.0-0.1 N [id number] 20:34:00* Test Item Value Reference Range Interpretation Comments GLUBED (test code = GLUBED) 106 mg/dL 74-106 N Performed by certified glue spreading machine operator at [facility] [id number] 16:44:00* Test Item Value Reference Range Interpretation Comments GLUBED (test code = GLUBED) 290 mg/dL 74-106 H Performed by certified glue spreading machine operator at [facility] [id number] 16:44:00* Test Item Value Reference Range Interpretation Comments GLUBED (test code = GLUBED) 276 mg/dL 74-106 H Performed by certified glue spreading machine operator at [facility] T4 [id number] 16:31:00* Test Item Value Reference Range Interpretation Comments T4 FREE (test code = T4F) 1.06 ng/dL 0.76-1.46 N THYROID STIMULATING [id number] 16:31:00* Test Item Value Reference Range Interpretation Comments THYROID STIMULATING HORMONE (test code = TSH) 0.871 uIU/mL 0.36-3.7 4 N TSH REFERENCE RANGES: EUTHYROID: 0.35 - 4.3 mIU/mL HYPO : > 5.5 mIU/mL HYPER : < 0.35 mIU/mL [id number] 16:30:00* Test Item Value Reference Range Interpretation Comments GLYCOSYLATED HEMOGLOBIN (HA1C) (test code = GLYHGB) 9.8 % HbA1 4. 8-6.0 H ESTIMATED AVERAGE GLUCOSE (test code = EAG) 235 MG/DL [id number] 12:28:00* Test Item Value Reference Range Interpretation Comments GLUBED (test code = GLUBED) 282 mg/dL 74-106 H Performed by certified glue spreading machine operator at [facility] [id number] 11:21:00* Test Item Value Reference Range Interpretation Comments MAGNESIUM (test code = MAG) 2.3 mg/dL 1.8-2.4 N [id number] 10:04:00* Test Item Value Reference Range Interpretation Comments TROPONIN-I (test code = TROPI) <0.015 ng/mL 0-0.045 N COMMENTS TO PATIENT EDUCATOR: COLLECT 3 HOURS AFTER PREVIOUS [id number] 04:34:00* Test Item Value Reference Range Interpretation Comments TROPONIN-I (test code = TROPI) <0.015 ng/mL 0-0.045 N COMMENTS TO PATIENT EDUCATOR: COLLECT 3 HOURS AFTER PREVIOUS [id number] 04:12:00* Test Item Value Reference Range Interpretation Comments GLUBED (test code = GLUBED) 257 mg/dL 74-106 H Performed by certified glue spreading machine operator at [facility] - CT CHEST W/O [id number] 23:57:00 Name: KALYANI TALAVERA [facility] : 1955 Age/S: 64 / F [address] Unit #: [id number] Loc: [place] [address] Phys: Leonora Goins MD Acct: [id number] Dis Date: Status: REG ER PHONE #: [phone] Exam Date: 05/17/2019 2320 FAX #: [phone] Reason: shortneess of breath, weakness EXAMS: CPT CODE: [id number] CT CHEST W/O CONTRAST 92036 LOCATION: Q15 HISTORY: 64-year-old female who presents with dyspnea and weakness. COMMENT: Axial imaging the patient's chest was obtained without IV contrast in routine fashion. Soft tissue and lung window images were submitted in the axial plane. Coronal and sagittal soft tissue reconstructions were included. A chest x-ray obtained earlier this evening is available for comparison. CONTRAST: None. One or more of the following dose reduction techniques were used: Automated exposure control, adjustment of the mA and/or kV according to patient size, and/or utilization of iterative reconstruction technique. DLP: 377.25 mGy-cm FINDINGS: The cardiac s ilhouette is mildly enlarged. Findings of central vascular congestion is s een. The vascular structures otherwise are unremarkable and no adenopathy is seen. The thoracic inlet and chest wall are unremarkable. The visualize d upper abdomen is unremarkable. IMPRESSION: There is mild, generalized cardiac enlargement seen with central vascula r congestion. at 2357 Reported and signed by: Kizzy Malcolm M.D. PAGE 1 Signed Report (CONTINUED) Name: KALYANI TALAVERA [facility] : 1955 Age/S: 64 / F [address] Unit #: [id number] Loc: [place] [address] Phys: Leonora Goins MD Acct: [id number] Dis Date: S tatus: REG ER PHONE #: [phone] Exam Da te: 05/17/2019 2320 FAX #: [phone] Reason: shortn eess of breath, weakness EXAMS: CPT CODE: [id number] CT CHEST W/O CONTRAST 16397 <Continued> CC: Lucille Nur MD; Leonora Goins MD Technologist:JORDEN MERCADO, RT CTDI: DLP: Trnscb Date/Time: 05/17/2019 (7825) [email or web address] Orig Print D/T: S: 05/18/2019 (0000) PAGE 2 Signed Report [id number] 22:38:00* Test Item Value Reference Range Interpretation Comments GLUBED (test code = GLUBED) 373 mg/dL 74-106 H Performed by certified glue spreading machine operator at [facility] [id number] 22:38:00* Test Item Value Reference Range Interpretation Comments GLUBED (test code = GLUBED) 422 mg/dL 74-106 H Performed by certified glue spreading machine operator at [facility] - CT HEAD/BRAIN W/O [id number] 22:09:00 Name: KALYANI TALAVERA [facility] : 1955 Age/S: 64 / F [address] Unit #: [id number] Loc: [place] [address] Phys: Leonora Goins MD Acct: [id number] Dis Date: Status: REG ER PHONE #: [phone] Exam Date: 05/17/20192118 FAX #: [phone] Reason: weakness EXAMS: CPT CODE: [id number] CT HEAD/BRAIN W/O CONT 31551 HISTORY: weakness TECHNIQUE: Noncontrast 2.[address] of the head. Examination acquired within 24 hours of arrival. Automated exposure control for dose reduction. COMPARISON: Noncontrast CT brain April 30, 2019 FINDINGS: No lacerations or contusions of the scalp or facial soft tissues. Calvarium and skull base are intact. No acute hemorrhage. No intracranial mass, mass effect, or midline shift. No effacement of the sulci or rodriguez-white matter interface. Cortical atrophy with mild dilation of the ventricles appears unchanged from the previous study. Visualized paranasal sinuses are clear. Mastoid air cells and middle ear cavities are clear. Orbital contents are unremarkable. IMPRESSION: No acute intracranial process or change from prior exam. Location: [facility] at [address] Reported and signed by: Dago Goodson MD CC: Chris Nur MD; Leonora Goins MD Technologist:RT SOTO(R) CT CTDI: DLP: Trnscb Date/Time: 05/17/2019 (2208) [email or web address] Orig Print D/T: S: 05/17/2019 (4019) PAGE 1 Signed Report BASIC METABOLIC [id number] 22:03:00* Test Item Value Reference Range Interpretation Comments SODIUM (test code = NA) 140 mmol/L 136-145 N POTASSIUM (test code = K) 4.1 mmol/L 3.5-5.1 N CHLORIDE (test code = CL) 104.0 mmol/L 98-107 N CARBON DIOXIDE (test code = CO2) 28.0 mmol/L 21-32 N ANION GAP (test code = GAP) 12.1 10-20 N GLUCOSE (test code = GLU) 415 mg/dL 74-106 H BLOOD UREA NITROGEN (test code = BUN) 54 mg/dL 7-18 H GLOMERULAR FILTRATION RATE (test code = GFR) 33 mL/min >=60 Estimated GFR by using Modified MDRD formula.Chronic kidney disease is defined as either kidney damageor GFR <60 mL/min/1.73 m2 for >3 months. CREATININE (test code = CREAT) 1.60 mg/dL 0.55-1.02 H Note change in reference range due to change in reagent. BUN/CREATININE RATIO (test code = BUN/CREA) 33.1 10-20 H CALCIUM (test code = CA) 8.6 mg/dL 8.5-10.1 N HEPATIC FUNCTION [id number] 22:03:00* Test Item Value Reference Range Interpretation Comments TOTAL PROTEIN (test code = PROT) 6.5 gram/dL 6.4-8.2 N ALBUMIN (test code = ALB) 3.0 g/dL 3.4-5.0 L GLOBULIN (test code = GLOB) 3.5 gram/dL 2.7-4.2 N ALBUMIN/GLOBULIN RATIO (test code = A/G) 0.9 0.75-1.50 N BILIRUBIN TOTAL (test code = BILT) 0.20 mg/dL 0.0-1.0 N BILIRUBIN DIRECT (test code = BILD) 0.10 mg/dL 0.0-0.20 N SGOT/AST (test code = AST) 29 IUnit/L 15-37 N SGPT/ALT (test code = ALT) 61 IUnit/L 12-78 N ALKALINE PHOSPHATASE TOTAL (test code = ALKP) 67 IUnit/L 45-117 N Note change in reference range due to change in reagent. [id number] 22:03:00* Test Item Value Reference Range Interpretation Comments LIPASE (test code = LIP) 105 U/L 73.0-393.0 N [id number] 22:03:00* Test Item Value Reference Range Interpretation Comments TROPONIN-I (test code = TROPI) <0.015 ng/mL 0-0.045 N - XR CHEST 1 [id number] 22:01:00 FAX: Amish Nur Si [phone] [place]: [address]: REG FAX: Leonora Norton [phone] Name: KALYANI TALAVERA [facility] : 1955 Age/S: 64/F [address] Unit #: [id number] Loc: [place] [address] Phys: Leonora Goins MD Acct: [id number] Dis Date: Status: REG ER PHONE #: [phone] Exam Date: 05/17/2019 2110 FAX #: [phone] Reason: WEAKNESS EXAMS: CPT CODE: [id number] XR CHEST 1 V 29299 REASON FOR EXAM: WEAKNESS Exam Order Date: 05/17/2019 8:44 PM Ordering M.D.: Leonora Goins MD PROCEDURE: - XR CHEST 1 V COMPARISON: Frontal chest x-ray January 05, 2019 FINDINGS: Lung volumes are diminished which causes crowding of the bronchovascular structures. There is also subsegmental atelectasis in the lung bases. The cardiac mediastinal silhouette appears prominent however this may be secondary to low lung volumes. The spine is suboptimally evaluated. Remainder of the bones are grossly within normal limits. Visualized upper abdomen is radiographically unremarkable. IMPRESSION: Low lung volumes with bibasilar subsegmental atelectasis. Cardiomediastinal silhouette is enlarged however this may be secondary to diminished lung volumes. Location: [facility] at 2201 Reported and signed by: Dago Goodson MD CC: Lucille Land MD; Leonora Goins MD Technologist: EZEQUIEL CHAPA Trnscrd Date/Time/By: 05/17/2019 (2200) : By: [email or web address] Orig Print D/T: S: 05/17/2019 (2203) PAGE 1 Signed Report URINALYSIS [id number] 21:54:00* Test Item Value Reference Range Interpretation Comments UA COLOR (test code = COLU) COLORLESS YELLOW A UA APPEARANCE (test code = APPU) CLEAR CLEAR UA GLUCOSE DIPSTICK (test code = DGLUU) >1000 (4+) mg/dL NEGATIVE UA BILIRUBIN DIPSTICK (test code = BILU) NEGATIVE mg/dL NEGATIVE UA KETONE DIPSTICK (test code = KETU) NEGATIVE mg/dL NEGATIVE UA SPECIFIC GRAVITY (test code = SGU) 1.011 1.001-1.035 UA BLOOD DIPSTICK (test code = MONICA) Negative mg/dL NEGATIVE UA PH DIPSTICK (test code = VIVEK) 5.5 5.0-8.0 UA PROTEIN DIPSTICK (test code = PROU) NEGATIVE mg/dL NEGATIVE UA UROBILINIOGEN DIPSTICK (test code = URO) Normal mg/dL NEGATIVE UA NITRITE DIPSTICK (test code = GOYO) NEGATIVE NEGATIVE UA LEUKOCYTE ESTERASE W REFLEX (test code = LEUUR) NEGATIVE Kendra/uL NEGATIVE UA WBC (test code = WBCU) 0-5 per HPF 0-5 UA RBC (test code = RBCU) 0-2 #/HPF 0-5 UA EPITHELIAL CELLS (test code = EPIU) FEW per HPF FEW UA BACTERIA (test code = BACU) NONE SEEN #/HPF NONE Urine Source? Clean CatchBASIC METABOLIC [id number] 21:42:00* Test Item Value Reference Range Interpretation Comments SODIUM (test code = NA) 140 mmol/L 136-145 N POTASSIUM (test code = K) 4.1 mmol/L 3.5-5.1 N CHLORIDE (test code = CL) 104.0 mmol/L 98-107 N CARBON DIOXIDE (test code = CO2) mmol/L 21-32 ANION GAP (test code = GAP) 10-20 GLUCOSE (test code = GLU) mg/dL 74-106 BLOOD UREA NITROGEN (test code = BUN) mg/dL 7-18 GLOMERULAR FILTRATION RATE (test code = GFR) mL/min >=60 CREATININE (test code = CREAT) mg/dL 0.55-1.02 BUN/CREATININE RATIO (test code = BUN/CREA) 10-20 CALCIUM (test code = CA) mg/dL 8.5-10.1 HEPATIC FUNCTION [id number] 21:42:00* Test Item Value Reference Range Interpretation Comments TOTAL PROTEIN (test code = PROT) gram/dL 6.4-8.2 ALBUMIN (test code = ALB) g/dL 3.4-5.0 GLOBULIN (test code = GLOB) gram/dL 2.7-4.2 ALBUMIN/GLOBULIN RATIO (test code = A/G) 0.75-1.50 BILIRUBIN TOTAL (test code = BILT) mg/dL 0.0-1.0 BILIRUBIN DIRECT (test code = BILD) mg/dL 0.0-0.20 SGOT/AST (test code = AST) IUnit/L 15-37 SGPT/ALT (test code = ALT) IUnit/L 12-78 ALKALINE PHOSPHATASE TOTAL (test code = ALKP) IUnit/L 45-117 [id number] 21:42:00* Test Item Value Reference Range Interpretation Comments LIPASE (test code = LIP) U/L 73.0-393.0 [id number] 21:42:00* Test Item Value Reference Range Interpretation Comments TROPONIN-I (test code = TROPI) ng/mL 0-0.045 CBC W/O [id number] 21:33:00* Test Item Value Reference Range Interpretation Comments WHITE BLOOD CELL (test code = WBC) 6.6 K/mm3 4.5-12.5 N RED BLOOD CELL (test code = RBC) 4.14 mill/mm3 3.7-5.2 N HEMOGLOBIN (test code = HGB) 10.4 gram/dL 11.5-15.5 L HEMATOCRIT (test code = HCT) 35.3 % 36.0-46.0 L MEAN CELL VOLUME (test code = MCV) 85.3 fL 80-98 N MEAN CELL HGB (test code = MCH) 25.1 picogram 27.0-33.0 L MEAN CELL HGB CONCETRATION (test code = MCHC) 29.5 gram/dL 33.0-36. 0 L RED CELL DISTRIBUTION WIDTH (test code = RDW) 15.3 % 11.6-16. 2 N PLATELET COUNT (test code = PLT) 165 K/mm3 150-450 N MEAN PLATELET VOLUME (test code = MPV) 10.9 fL 6.7-11.0 N [id number] 02:14:00* Test Item Value Reference Range Interpretation Comments GLUBED (test code = GLUBED) 359 mg/dL 74-106 H Performed by certified glue spreading machine operator at [facility] [id number] 01:04:00* Test Item Value Reference Range Interpretation Comments GLUBED (test code = GLUBED) 484 mg/dL 74-106 H Performed by certified glue spreading machine operator at [facility] URINALYSIS [id number] 00:11:00* Test Item Value Reference Range Interpretation Comments UA COLOR (test code = COLU) COLORLESS YELLOW A UA APPEARANCE (test code = APPU) CLEAR CLEAR UA GLUCOSE DIPSTICK (test code = DGLUU) >1000 (4+) mg/dL NEGATIVE UA BILIRUBIN DIPSTICK (test code = BILU) NEGATIVE mg/dL NEGATIVE UA KETONE DIPSTICK (test code = KETU) NEGATIVE mg/dL NEGATIVE UA SPECIFIC GRAVITY (test code = SGU) 1.026 1.001-1.035 UA BLOOD DIPSTICK (test code = MONICA) Negative mg/dL NEGATIVE UA PH DIPSTICK (test code = VIEVK) 6.5 5.0-8.0 UA PROTEIN DIPSTICK (test code = PROU) NEGATIVE mg/dL NEGATIVE UA UROBILINIOGEN DIPSTICK (test code = URO) Normal mg/dL NEGATIVE UA NITRITE DIPSTICK (test code = GOYO) NEGATIVE NEGATIVE UA LEUKOCYTE ESTERASE W REFLEX (test code = LEUUR) NEGATIVE Kendra/uL NEGATIVE UA WBC (test code = WBCU) NONE SEEN per HPF 0-5 UA RBC (test code = RBCU) 0-3 per HPF 0-5 UA EPITHELIAL CELLS (test code = EPIU) FEW per HPF FEW UA BACTERIA (test code = BACU) NONE SEEN per HPF NONE Urine Source? Clean CatchURINALYSIS [id number] 00:07:00* Test Item Value Reference Range Interpretation Comments UA COLOR (test code = COLU) COLORLESS YELLOW A UA APPEARANCE (test code = APPU) CLEAR CLEAR UA GLUCOSE DIPSTICK (test code = DGLUU) >1000 (4+) mg/dL NEGATIVE UA BILIRUBIN DIPSTICK (test code = BILU) NEGATIVE mg/dL NEGATIVE UA KETONE DIPSTICK (test code = KETU) NEGATIVE mg/dL NEGATIVE UA SPECIFIC GRAVITY (test code = SGU) 1.026 1.001-1.035 UA BLOOD DIPSTICK (test code = MONICA) Negative mg/dL NEGATIVE UA PH DIPSTICK (test code = VIVEK) 6.5 5.0-8.0 UA PROTEIN DIPSTICK (test code = PROU) NEGATIVE mg/dL NEGATIVE UA UROBILINIOGEN DIPSTICK (test code = URO) Normal mg/dL NEGATIVE UA NITRITE DIPSTICK (test code = GOYO) NEGATIVE NEGATIVE UA LEUKOCYTE ESTERASE W REFLEX (test code = LEUUR) NEGATIVE Kendra/uL NEGATIVE UA WBC (test code = WBCU) per HPF 0-5 UA RBC (test code = RBCU) per HPF 0-5 UA EPITHELIAL CELLS (test code = EPIU) FEW per HPF FEW UA BACTERIA (test code = BACU) per HPF NONE Urine Source? Clean CatchBASIC METABOLIC [id number] 23:16:00* Test Item Value Reference Range Interpretation Comments SODIUM (test code = NA) 132 mmol/L 136-145 L POTASSIUM (test code = K) 4.8 mmol/L 3.5-5.1 N CHLORIDE (test code = CL) 99.0 mmol/L 98-107 N CARBON DIOXIDE (test code = CO2) 25.0 mmol/L 21-32 N ANION GAP (test code = GAP) 12.8 10-20 N GLUCOSE (test code = GLU) 631 mg/dL 74-106 Re sults called to by ROSE 04/30/19 2316Critical results verified and read back by Nurse? Y BLOOD UREA NITROGEN (test code = BUN) 30 mg/dL 7-18 H GLOMERULAR FILTRATION RATE (test code = GFR) 35 mL/min >=60 Estimated GFR by using Modified MDRD formula.Chronic kidney disease is defined as either kidney damageor GFR <60 mL/min/1.73 m2 for >3 months. CREATININE (test code = CREAT) 1.50 mg/dL 0.55-1.02 H Note change in reference range due to change in reagent. BUN/CREATININE RATIO (test code = BUN/CREA) 19.9 10-20 N CALCIUM (test code = CA) 8.6 mg/dL 8.5-10.1 N HEPATIC FUNCTION [id number] 23:16:00* Test Item Value Reference Range Interpretation Comments TOTAL PROTEIN (test code = PROT) 7.1 gram/dL 6.4-8.2 N ALBUMIN (test code = ALB) 3.3 g/dL 3.4-5.0 L GLOBULIN (test code = GLOB) 3.8 gram/dL 2.7-4.2 N ALBUMIN/GLOBULIN RATIO (test code = A/G) 0.9 0.75-1.50 N BILIRUBIN TOTAL (test code = BILT) 0.30 mg/dL 0.0-1.0 N BILIRUBIN DIRECT (test code = BILD) 0.12 mg/dL 0.0-0.20 N SGOT/AST (test code = AST) 13 IUnit/L 15-37 L SGPT/ALT (test code = ALT) 31 IUnit/L 12-78 N ALKALINE PHOSPHATASE TOTAL (test code = ALKP) 89 IUnit/L 45-117 N Note change in reference range due to change in reagent. [id number] 23:16:00* Test Item Value Reference Range Interpretation Comments TROPONIN-I (test code = TROPI) <0.015 ng/mL 0-0.045 N BASIC METABOLIC [id number] 22:52:00* Test Item Value Reference Range Interpretation Comments SODIUM (test code = NA) 132 mmol/L 136-145 L POTASSIUM (test code = K) 4.8 mmol/L 3.5-5.1 N CHLORIDE (test code = CL) 99.0 mmol/L 98-107 N CARBON DIOXIDE (test code = CO2) mmol/L 21-32 ANION GAP (test code = GAP) 10-20 GLUCOSE (test code = GLU) mg/dL 74-106 BLOOD UREA NITROGEN (test code = BUN) mg/dL 7-18 GLOMERULAR FILTRATION RATE (test code = GFR) mL/min >=60 CREATININE (test code = CREAT) mg/dL 0.55-1.02 BUN/CREATININE RATIO (test code = BUN/CREA) 10-20 CALCIUM (test code = CA) mg/dL 8.5-10.1 HEPATIC FUNCTION [id number] 22:52:00* Test Item Value Reference Range Interpretation Comments TOTAL PROTEIN (test code = PROT) gram/dL 6.4-8.2 ALBUMIN (test code = ALB) g/dL 3.4-5.0 GLOBULIN (test code = GLOB) gram/dL 2.7-4.2 ALBUMIN/GLOBULIN RATIO (test code = A/G) 0.75-1.50 BILIRUBIN TOTAL (test code = BILT) mg/dL 0.0-1.0 BILIRUBIN DIRECT (test code = BILD) mg/dL 0.0-0.20 SGOT/AST (test code = AST) IUnit/L 15-37 SGPT/ALT (test code = ALT) IUnit/L 12-78 ALKALINE PHOSPHATASE TOTAL (test code = ALKP) IUnit/L 45-117 [id number] 22:52:00* Test Item Value Reference Range Interpretation Comments TROPONIN-I (test code = TROPI) ng/mL 0-0.045 - CT HEAD/BRAIN W/O [id number] 22:44:00 Name: KALYANI TALAVERA [facility] : 1955 Age/S: 64 / F [address] [facility] Unit #: [id number] Loc: [place] [address] Phys: Vince Jones DO Acct: [id number] Dis Date: Status: REG ER PHONE #: [phone] Exam Date: 04/30/20192231 FAX #: [phone] Reason: headache/blurry vision EXAMS: CPT CODE: [id number] CT HEAD/BRAIN W/O CONT 99351 HISTORY: headache/blurry vision TECHNIQUE: Noncontrast 2.[address] of the head. Examination acquired within 24 hours of arrival. Automated exposure control for dose reduction. COMPARISON: Noncontrast CT brain January 05, 2019 FINDINGS: No lacerations or contusions of the scalp or facial soft tissues.. Calvarium and skull base are intact. No acute hemorrhage. No intracranial mass, mass effect, or midline shift. No effacement of the sulci or rodriguez-white matter interface. Mild cortical atrophy appears similar to the prior exam and is appropriate for the patient's age. No hydrocephalus.. No extra-axial fluid co llection. Visualized paranasal sinuses are clear. Mastoid air cells and middle ear cavities are clear. Orbital contents are unremar kable. IMPRESSION: No acute intracran ial process. Age appropriate cortical atrophy. Electronicall y Signed by Dago Goodson MD on 04/30/2019 at 6004 Reporte d and signed by: Dago Goodson MD CC: Lucille Nur MD; Vince Jacobs DO Technologist:Arianna Hendrix RT(R); KIZZY Chavez CTDI: DL P: Trnscb Date/Time: 04/30/2019 (6521) t.SDR.RR31 O rig Print D/T: S: 04/30/2019 (3478) PAGE 1 Signed Re port CBC W/AUTO [id number] 22:43:00* Test Item Value Reference Range Interpretation Comments WHITE BLOOD CELL (test code = WBC) 5.5 K/mm3 4.5-12.5 N RED BLOOD CELL (test code = RBC) 4.57 mill/mm3 3.7-5.2 N HEMOGLOBIN (test code = HGB) 11.8 gram/dL 11.5-15.5 N HEMATOCRIT (test code = HCT) 38.1 % 36.0-46.0 N MEAN CELL VOLUME (test code = MCV) 83.4 fL 80-98 N MEAN CELL HGB (test code = MCH) 25.8 picogram 27.0-33.0 L MEAN CELL HGB CONCETRATION (test code = MCHC) 31.0 gram/dL 33.0-36. 0 L RED CELL DISTRIBUTION WIDTH (test code = RDW) 15.5 % 11.6-16. 2 N RED CELL DISTRIBUTION WIDTH SD (test code = RDW-SD) 46.5 fL 37 .0-51.0 N PLATELET COUNT (test code = PLT) 177 K/mm3 150-450 N MEAN PLATELET VOLUME (test code = MPV) 10.7 fL 6.7-11.0 N NEUTROPHIL % (test code = NT%) 67.4 % 39.0-69.0 N IMMATURE GRANULOCYTE % (test code = IG%) 1.5 % 0.0-5.0 N LYMPHOCYTE % (test code = LY%) 21.2 % 25.0-55.0 L MONOCYTE % (test code = MO%) 5.4 % 0.0-10.0 N EOSINOPHIL % (test code = EO%) 3.4 % 0.0-5.0 N BASOPHIL % (test code = BA%) 1.1 % 0.0-1.0 H NUCLEATED RBC % (test code = NRBC%) 0.4 % 0-0 H NEUTROPHIL # (test code = NT#) 3.71 K/mm3 1.8-7.7 N IMMATURE GRANULOCYTE # (test code = IG#) 0.08 x10 3/uL 0-0.03 H LYMPHOCYTE # (test code = LY#) 1.17 K/mm3 1.0-5.0 N MONOCYTE # (test code = MO#) 0.30 K/mm3 0-0.8 N EOSINOPHIL # (test code = EO#) 0.19 K/mm3 0.0-0.5 N BASOPHIL # (test code = BA#) 0.06 K/mm3 0.0-0.2 N NUCLEATED RBC # (test code = NRBC#) 0.02 K/mm3 0.0-0.1 N MANUAL DIFF REQUIRED (test code = MDIFF) NO [id number] 22:16:00* Test Item Value Reference Range Interpretation Comments GLUBED (test code = GLUBED) > 500 mg/dL 74-106 HH Per[facility] by certified glue spreading [facility]~ KNEE RIGHT THREE [id number] 04:11:00 [place] [address] Patient Name: KALYANI TALAVERA MR #: [id number] : 1955 Age/Sex: 64/F Req #: [id number] Adm Physician: Ordered by: JACQUES JANE MD Report #: [id number] Location: ER Room/Bed: Procedure: 06 DX/KNEE RIGHT THREE VIEWS Exam Date: Exam Time: REPORT STATUS: Signed X-RAY RIG HT KNEE 3 VIEWS HISTORY: Pain. COMPARISON: None available. FINDINGS: Bones: No acute displaced fracture. Osseous alignment is wit hin normal limits. Joints: Patellofemoral and tibiofemoral osteophytes. J oint space loss at the patellofemoral articulation. Soft tissues: Vascu lar calcifications. IMPRESSION: No acute radiographic abnormality. Mild degenerative changes in the knee, worst in the patellofemoral joint. S igned by: Bradley Harvey DO on 04/27/2019 4:12 AM Dictated By: BRADLEY ISAAC DO 1 Trans cribed By: JIM on 04/27/19411 COPY TO: JACQUES JANE MD Bedside [id number] 04:02:00* Test Item Value Reference Range Interpretation Comments Bedside Glucose (test code = 52501-2) 387 70-120 H Meter ID: [id number] [facility] Glucose 2019-04-18 04:02:00* Test Item Value Reference Range Interpretation Comments Bedside Glucose (test code = 09859-9) 387 70-120 H Meter ID: [id number] [facility] Glucose 2019-03-15 03:09:00* Test Item Value Reference Range Interpretation Comments Bedside Glucose (test code = 72862-9) 272 70-120 H Meter ID: [id number] [facility] Glucose 2019-03-15 03:09:00* Test Item Value Reference Range Interpretation Comments Bedside Glucose (test code = 77855-1) 272 70-120 H Meter ID: [id number] [facility]-15 03:03:00 [place] [address] Patient Name: KALYANI TALAVERA MR #: [id number] : 1955 Age/Sex: 64/F Req #: [id number] Adm Physician: Ordered by: JACQUES JANE MD Report #: [id number] Location: ER Room/Bed: Procedure: 0823-00 06 DX/CHEST SINGLE (PORTABLE) Exam Date: 03/15/19 Ex am Time: 0200 REPORT STATUS: Signed EXAMINATION: CHEST SINGLE (PORTABLE) INDICATION: Short of breath COMPARISON: Chest radiograph 01/16/2019, 01/11/2019 FINDINGS: AP view TUBES and LINES: None. LUNGS: Low lung volumes with vasc ular crowding and bibasilar atelectasis. There is mild prominence of the cent ral pulmonary vasculature, consistent with pulmonary venous congestion. P LEURA: No pleural effusion or pneumothorax. HEART AND MEDIASTINUM: Cardia c size is mildly enlarged. BONES AND SOFT TISSUES: No acute osseous [place]. Soft tissues are unremarkable. UPPER ABDOMEN: No free air under th e diaphragm. IMPRESSION: Low lung volumes with vascular crowding and bibasilar atelectasis. Cardiomegaly and pulmonary vascular congestion. Signed by: Bradley Harvey DO on 03/15/2019 3:14 AM Dictated By: BRADLEY HARVEY DO 3 Tr anscribed By: JIM on 03/15/19313 COPY TO: JACQUES JANE MD Sodium [id number] 02:29:00* Test Item Value Reference Range Interpretation Comments Sodium Level (test code = 2951-2) 134 136-145 L [facility] [id number] 02:29:00* Test Item Value Reference Range Interpretation Comments Potassium Level (test code = 2823-3) 4.2 3.5-5.1 [facility] LancasterChloride [id number] 02:29:00* Test Item Value Reference Range Interpretation Comments Chloride Level (test code = 2075-0) 99 98-107 [facility] LancasterCarbon Dioxide [id number] 02:29:00* Test Item Value Reference Range Interpretation Comments Carbon Dioxide Level (test code = 2028-9) 25 22-29 [facility] LancasterAnion [id number] 02:29:00* Test Item Value Reference Range Interpretation Comments Anion Gap (test code = 36601-2) 14.2 8-16 [facility] LancasterBlood Urea Ifzkoiyr2016-36-98 02:29:00* Test Item Value Reference Range Interpretation Comments Blood Urea Nitrogen (test code = 3094-0) 26 02-15 [facility] LancasterCreatinine2019-08-23 02:29:00* Test Item Value Reference Range Interpretation Comments Creatinine (test code = 2160-0) 1.11 0.57-1.11 [facility] LancasterBUN/Creatinine Mncgi4787-22-53 02:29:00* Test Item Value Reference Range Interpretation Comments BUN/Creatinine Ratio (test code = 3097-3) 01-15 [facility] LancasterEstimat Glomerular Filtration Rate 2019-03-15 02:29:00* Test Item Value Reference Range Interpretation Comments Estimat Glomerular Filtration Rate (test code = 116829206) 50 >60 L Ranges were taken from the National Kidney Disease Education Program and the [facility] literature.Reference ranges:60 or greater: Jyxvga46-23 ( for 3 consecutive months): Chronic kidney disease 15 or less: Kidney failureCrescent Medical Center LancasterGlucose Izywh0858-40-16 02:29:00* Test Item Value Reference Range Interpretation Comments Glucose Level (test code = FRQ5151) 391 45-328 Results repeated and called to THELMA DONALDSON RN at 0229 on 03/15/19 by Francoise Proctor. Read back and verified.[facility] LancasterCalcium Fqclc7931-99-20 02:29:00* Test Item Value Reference Range Interpretation Comments Calcium Level (test code = 35603-2) 8.8 8.4-10.2 [facility]view[facility] Untoi6584-33-29 02:29:00* Test Item Value Reference Range Interpretation Comments Sodium Level (test code = 2951-2) 134 136-145 L [facility] LancasterPotassium Vhzvq3491-13-06 02:29:00* Test Item Value Reference Range Interpretation Comments Potassium Level (test code = 2823-3) 4.2 3.5-5.1 [facility] LancasterChloride Eysfx8374-37-87 02:29:00* Test Item Value Reference Range Interpretation Comments Chloride Level (test code = 2075-0) 99 98-107 [facility] LancasterCarbon Dioxide Nphqm8778-67-65 02:29:00* Test Item Value Reference Range Interpretation Comments Carbon Dioxide Level (test code = 2028-9) 25 - [facility] LancasterAnion Asy2552-06-45 02:29:00* Test Item Value Reference Range Interpretation Comments Anion Gap (test code = 71032-8) 14.2 8-16 [facility] LancasterBlood Urea Awnzyhty9033-58-32 02:29:00* Test Item Value Reference Range Interpretation Comments Blood Urea Nitrogen (test code = 3094-0) 26 7- [facility] LancasterCreatinine2019-08-23 02:29:00* Test Item Value Reference Range Interpretation Comments Creatinine (test code = 2160-0) 1.11 0.57-1.11 [facility] LancasterBUN/Creatinine Mljcm0911-91-27 02:29:00* Test Item Value Reference Range Interpretation Comments BUN/Creatinine Ratio (test code = 3097-3) 23 - [facility] LancasterEstimat Glomerular Filtration Rate 2019-03-15 02:29:00* Test Item Value Reference Range Interpretation Comments Estimat Glomerular Filtration Rate (test code = 847487488) 50 >60 L Ranges were taken from the National Kidney Disease Education Program and the [facility] Foundation literature.Reference ranges:60 or greater: Grsshg89-95 ( for 3 consecutive months): Chronic kidney disease 15 or less: Kidney failureCrescent Medical Center LancasterGlucose Gemjh8536-86-81 02:29:00* Test Item Value Reference Range Interpretation Comments Glucose Level (test code = VJA1411) 559 74-118 HH Results repeated and called to THELMA DONALDSON RN at 9 on 03/15/19 by Francoise Proctor. Read back and verified.[facility] LancasterCalcium Dpuyx2484-35-55 02:29:00* Test Item Value Reference Range Interpretation Comments Calcium Level (test code = 34074-3) 8.8 8.4-10.2 [facility]viewodium Przjt0980-23-06 02:29:00* Test Item Value Reference Range Interpretation Comments Sodium Level (test code = 2951-2) 134 136-145 L [facility] LancasterPotassium Jznjj9299-55-87 02:29:00* Test Item Value Reference Range Interpretation Comments Potassium Level (test code = 2823-3) 4.2 3.5-5.1 [facility] LancasterChloride Afxvz2303-31-14 02:29:00* Test Item Value Reference Range Interpretation Comments Chloride Level (test code = 2075-0) 99 98-107 [facility] LancasterCarbon Dioxide Idjkh3858-09-71 02:29:00* Test Item Value Reference Range Interpretation Comments Carbon Dioxide Level (test code = 2028-9) 25 22-29 [facility] LancasterAnion Pwy7970-41-87 02:29:00* Test Item Value Reference Range Interpretation Comments Anion Gap (test code = 24096-8) 14.2 8-16 [facility] LancasterBlood Urea Gcicmdhc5085-48-19 02:29:00* Test Item Value Reference Range Interpretation Comments Blood Urea Nitrogen (test code = 3094-0) 26 7-26 [facility] LancasterCreatinine2019-08-23 02:29:00* Test Item Value Reference Range Interpretation Comments Creatinine (test code = 2160-0) 1.11 0.57-1.11 [facility] LancasterBUN/Creatinine Fqcgl6208-53-27 02:29:00* Test Item Value Reference Range Interpretation Comments BUN/Creatinine Ratio (test code = 3097-3) 23 6-25 [facility] LancasterEstimat Glomerular Filtration Rate 2019-03-15 02:29:00* Test Item Value Reference Range Interpretation Comments Estimat Glomerular Filtration Rate (test code = 447587097) 50 >60 L Ranges were taken from the National Kidney Disease Education Program and the [facility] Kid[facility] Foundation literature.Reference ranges:60 or greater: Uylfxq59-63 ( for 3 consecutive months): Chronic kidney disease 15 or less: Kidney failureCrescent Medical Center LancasterGlucose Wmkng5450-64-71 02:29:00* Test Item Value Reference Range Interpretation Comments Glucose Level (test code = GVE9653) 559 74118 Results repeated and called to THELMA DONALDSON RN at 0229 on 03/15/19 by Francoise Proctor. Read back and verified.[facility] LancasterCalcium Tsjob1801-72-36 02:29:00* Test Item Value Reference Range Interpretation Comments Calcium Level (test code = 39916-5) 8.8 8.4-10.2 [facility]viewodium Qvxjk4857-26-24 02:29:00* Test Item Value Reference Range Interpretation Comments Sodium Level (test code = 2951-2) 134 136-145 L [facility] LancasterPotassium Gbals2137-14-91 02:29:00* Test Item Value Reference Range Interpretation Comments Potassium Level (test code = 2823-3) 4.2 3.5-5.1 [facility] LancasterChloride Yxjuf3888-20-63 02:29:00* Test Item Value Reference Range Interpretation Comments Chloride Level (test code = 2075-0) 99 98-107 [facility] LancasterCarbon Dioxide Vuvsp9038-60-99 02:29:00* Test Item Value Reference Range Interpretation Comments Carbon Dioxide Level (test code = 2028-9) 25 22-29 [facility] LancasterAnion Iup2202-06-16 02:29:00* Test Item Value Reference Range Interpretation Comments Anion Gap (test code = 77424-3) 14.2 8-16 [facility] [place] Urea [id number] 02:29:00* Test Item Value Reference Range Interpretation Comments Blood Urea Nitrogen (test code = 3094-0) 26 7-26 [facility] [place]Creatinine2019-08-23 02:29:00* Test Item Value Reference Range Interpretation Comments Creatinine (test code = 2160-0) 1.11 0.57-1.11 [facility] [place]/Creatinine [id number] 02:29:00* Test Item Value Reference Range Interpretation Comments BUN/Creatinine Ratio (test code = 3097-3) 23 6-25 [facility] LancasterEstimat Glomerular Filtration Rate 2019-03-15 02:29:00* Test Item Value Reference Range Interpretation Comments Estimat Glomerular Filtration Rate (test code = 125655838) 50 >60 L Ranges were taken from the National Kidney Disease Education Program and the [facility] literature.Reference ranges:60 or greater: Fwrhjk36-81 ( for 3 consecutive months): Chronic kidney disease 15 or less: Kidney failureCrescent Medical Center LancasterGlucose Tqbxf1565-80-64 02:29:00* Test Item Value Reference Range Interpretation Comments Glucose Level (test code = IRQ1168) 559 74-118 Results repeated and called to THELMA DONALDSON RN at 0229 on 03/15/19 by Francoise Proctor. Read back and verified.[facility] LancasterCalcium Kcfin7363-11-55 02:29:00* Test Item Value Reference Range Interpretation Comments Calcium Level (test code = 45048-0) 8.8 8.4-10.2 [facility] LancasterWhite Blood Mchau8122-87-49 02:16:00* Test Item Value Reference Range Interpretation Comments White Blood Count (test code = 6690-2) 5.52 4.8-10.8 [facility] LancasterRed Blood Kwnzd6311-01-77 02:16:00* Test Item Value Reference Range Interpretation Comments Red Blood Count (test code = 789-8) 4.47 3.6-5.1 [facility] LancasterHemoglobin2019-08-23 02:16:00* Test Item Value Reference Range Interpretation Comments Hemoglobin (test code = 86412-5) 11.3 12.0-16.0 L [facility] LancasterHematocrit2019-08-23 02:16:00* Test Item Value Reference Range Interpretation Comments Hematocrit (test code = 4544-3) 38.1 34.2-44.1 [facility] LancasterMean Corpuscular Muujlx2581-69-18 02:16:00* Test Item Value Reference Range Interpretation Comments Mean Corpuscular Volume (test code = 787-2) 85.2 81-99 [facility] LancasterMean Corpuscular Nsfvtqxdzg0437-82-50 02:16:00* Test Item Value Reference Range Interpretation Comments Mean Corpuscular Hemoglobin (test code = 785-6) 25.3 28-32 L [facility] LancasterMean Corpuscular Hemoglobin Concent 2019-03-15 02:16:00* Test Item Value Reference Range Interpretation Comments Mean Corpuscular Hemoglobin Concent (test code = 786-4) 29.7 31-35 L [facility] LancasterRed Cell Distribution Ruazd2020-80-22 02:16:00* Test Item Value Reference Range Interpretation Comments Red Cell Distribution Width (test code = 66341-2) 16.0 11.7 -14.4 H [facility] LancasterPlatelet Pbpaz8970-95-20 02:16:00* Test Item Value Reference Range Interpretation Comments Platelet Count (test code = 777-3) 175 140-360 [facility] LancasterNeutrophils (%) (Auto)2019-03-15 02:16:00 * Test Item Value Reference Range Interpretation Comments Neutrophils (%) (Auto) (test code = 41365-2) 71.8 38.7-80.0 [facility] LancasterLymphocytes (%) (Auto)2019-03-15 02:16:00 * Test Item Value Reference Range Interpretation Comments Lymphocytes (%) (Auto) (test code = 736-9) 20.1 18.0-39.1 [facility] LancasterMonocytes (%) (Auto)2019-03-15 02:16:00* Test Item Value Reference Range Interpretation Comments Monocytes (%) (Auto) (test code = 5905-5) 3.8 4.4-11.3 L [facility] LancasterEosinophils (%) (Auto)2019-03-15 02:16:00 * Test Item Value Reference Range Interpretation Comments Eosinophils (%) (Auto) (test code = 713-8) 1.8 0.0-6.0 [facility] LancasterBasophils (%) (Auto)2019-03-15 02:16:00* Test Item Value Reference Range Interpretation Comments Basophils (%) (Auto) (test code = 706-2) 0.9 0.0-1.0 [facility] LancasterIM GRANULOCYTES %2019-03-15 02:16:00* Test Item Value Reference Range Interpretation Comments IM GRANULOCYTES % (test code = IM GRANULOCYTES %) 1.6 0.0- 1.0 H [facility] LancasterNeutrophils # (Auto)2019-03-15 02:16:00* Test Item Value Reference Range Interpretation Comments Neutrophils # (Auto) (test code = 751-8) 4.0 2.1-6.9 [facility] LancasterLymphocytes # (Auto)2019-03-15 02:16:00* Test Item Value Reference Range Interpretation Comments Lymphocytes # (Auto) (test code = 75769-1) 1.1 1.0-3.2 [facility] LancasterMonocytes # (Auto)2019-03-15 02:16:00* Test Item Value Reference Range Interpretation Comments Monocytes # (Auto) (test code = 742-7) 0.2 0.2-0.8 [facility] LancasterEosinophils # (Auto)2019-03-15 02:16:00* Test Item Value Reference Range Interpretation Comments Eosinophils # (Auto) (test code = 711-2) 0.1 0.0-0.4 [facility] LancasterBasophils # (Auto)2019-03-15 02:16:00* Test Item Value Reference Range Interpretation Comments Basophils # (Auto) (test code = 704-7) 0.1 0.0-0.1 [facility] LancasterAbsolute Immature Granulocyte (auto 2019-03-15 02:16:00* Test Item Value Reference Range Interpretation Comments Absolute Immature Granulocyte (auto (joseph t code = Absolute Immature Granulocyte (auto) 0.09 0-0.1 [facility] LancasterWhite Blood Siqaf4812-96-71 02:16:00* Test Item Value Reference Range Interpretation Comments White Blood Count (test code = 6690-2) 5.52 4.8-10.8 [facility] LancasterRed Blood Xlupi2174-36-77 02:16:00* Test Item Value Reference Range Interpretation Comments Red Blood Count (test code = 789-8) 4.47 3.6-5.1 [facility] LancasterHemoglobin2019-08-23 02:16:00* Test Item Value Reference Range Interpretation Comments Hemoglobin (test code = 50908-8) 11.3 12.0-16.0 L [facility] LancasterHematocrit2019-08-23 02:16:00* Test Item Value Reference Range Interpretation Comments Hematocrit (test code = 4544-3) 38.1 34.2-44.1 [facility] LancasterMean Corpuscular Mswliz9151-46-98 02:16:00* Test Item Value Reference Range Interpretation Comments Mean Corpuscular Volume (test code = 787-2) 85.2 81-99 [facility] LancasterMean Corpuscular Lbrsaofzut5544-46-58 02:16:00* Test Item Value Reference Range Interpretation Comments Mean Corpuscular Hemoglobin (test code = 785-6) 25.3 28-32 L [facility] LancasterMean Corpuscular Hemoglobin Concent 2019-03-15 02:16:00* Test Item Value Reference Range Interpretation Comments Mean Corpuscular Hemoglobin Concent (test code = 786-4) 29.7 31-35 L [facility] LancasterRed Cell Distribution Vvzng5825-14-07 02:16:00* Test Item Value Reference Range Interpretation Comments Red Cell Distribution Width (test code = 02175-0) 16.0 11.7 -14.4 H [facility] LancasterPlatelet Uatov7310-86-93 02:16:00* Test Item Value Reference Range Interpretation Comments Platelet Count (test code = 777-3) 175 140-360 [facility] LancasterNeutrophils (%) (Auto)2019-03-15 02:16:00 * Test Item Value Reference Range Interpretation Comments Neutrophils (%) (Auto) (test code = 21881-3) 71.8 38.7-80.0 [facility] LancasterLymphocytes (%) (Auto)2019-03-15 02:16:00 * Test Item Value Reference Range Interpretation Comments Lymphocytes (%) (Auto) (test code = 736-9) 20.1 18.0-39.1 [facility] LancasterMonocytes (%) (Auto)2019-03-15 02:16:00* Test Item Value Reference Range Interpretation Comments Monocytes (%) (Auto) (test code = 5905-5) 3.8 4.4-11.3 L [facility] LancasterEosinophils (%) (Auto)2019-03-15 02:16:00 * Test Item Value Reference Range Interpretation Comments Eosinophils (%) (Auto) (test code = 713-8) 1.8 0.0-6.0 [facility] LancasterBasophils (%) (Auto)2019-03-15 02:16:00* Test Item Value Reference Range Interpretation Comments Basophils (%) (Auto) (test code = 706-2) 0.9 0.0-1.0 [facility] LancasterIM GRANULOCYTES %2019-03-15 02:16:00* Test Item Value Reference Range Interpretation Comments IM GRANULOCYTES % (test code = IM GRANULOCYTES %) 1.6 0.0- 1.0 H [facility] LancasterNeutrophils # (Auto)2019-03-15 02:16:00* Test Item Value Reference Range Interpretation Comments Neutrophils # (Auto) (test code = 751-8) 4.0 2.1-6.9 [facility] LancasterLymphocytes # (Auto)2019-03-15 02:16:00* Test Item Value Reference Range Interpretation Comments Lymphocytes # (Auto) (test code = 16988-3) 1.1 1.0-3.2 [facility] LancasterMonocytes # (Auto)2019-03-15 02:16:00* Test Item Value Reference Range Interpretation Comments Monocytes # (Auto) (test code = 742-7) 0.2 0.2-0.8 [facility] LancasterEosinophils # (Auto)2019-03-15 02:16:00* Test Item Value Reference Range Interpretation Comments Eosinophils # (Auto) (test code = 711-2) 0.1 0.0-0.4 [facility] LancasterBasophils # (Auto)2019-03-15 02:16:00* Test Item Value Reference Range Interpretation Comments Basophils # (Auto) (test code = 704-7) 0.1 0.0-0.1 [facility] LancasterAbsolute Immature Granulocyte (auto 2019-03-15 02:16:00* Test Item Value Reference Range Interpretation Comments Absolute Immature Granulocyte (auto (joseph t code = Absolute Immature Granulocyte (auto) 0.09 0-0.1 [facility] LancasterWhite Blood Abbqf7878-44-85 02:16:00* Test Item Value Reference Range Interpretation Comments White Blood Count (test code = 6690-2) 5.52 4.8-10.8 [facility] LancasterRed Blood Tjbio5720-54-40 02:16:00* Test Item Value Reference Range Interpretation Comments Red Blood Count (test code = 789-8) 4.47 3.6-5.1 [facility] LancasterHemoglobin2019-08-23 02:16:00* Test Item Value Reference Range Interpretation Comments Hemoglobin (test code = 45793-7) 11.3 12.0-16.0 L [facility] LancasterHematocrit2019-08-23 02:16:00* Test Item Value Reference Range Interpretation Comments Hematocrit (test code = 4544-3) 38.1 34.2-44.1 [facility] LancasterMean Corpuscular Nkqcci8372-49-21 02:16:00* Test Item Value Reference Range Interpretation Comments Mean Corpuscular Volume (test code = 787-2) 85.2 81-99 [facility] LancasterMean Corpuscular Gfveldluqj9195-62-67 02:16:00* Test Item Value Reference Range Interpretation Comments Mean Corpuscular Hemoglobin (test code = 785-6) 25.3 28-32 L [facility] LancasterMean Corpuscular Hemoglobin Concent 2019-03-15 02:16:00* Test Item Value Reference Range Interpretation Comments Mean Corpuscular Hemoglobin Concent (test code = 786-4) 29.7 31-35 L [facility] LancasterRed Cell Distribution Fywjc4778-72-38 02:16:00* Test Item Value Reference Range Interpretation Comments Red Cell Distribution Width (test code = 41681-4) 16.0 11.7 -14.4 H [facility] LancasterPlatelet Wphxb5256-62-19 02:16:00* Test Item Value Reference Range Interpretation Comments Platelet Count (test code = 777-3) 175 140-360 [facility] LancasterNeutrophils (%) (Auto)2019-03-15 02:16:00 * Test Item Value Reference Range Interpretation Comments Neutrophils (%) (Auto) (test code = 99137-3) 71.8 38.7-80.0 [facility] LancasterLymphocytes (%) (Auto)2019-03-15 02:16:00 * Test Item Value Reference Range Interpretation Comments Lymphocytes (%) (Auto) (test code = 736-9) 20.1 18.0-39.1 [facility] LancasterMonocytes (%) (Auto)2019-03-15 02:16:00* Test Item Value Reference Range Interpretation Comments Monocytes (%) (Auto) (test code = 5905-5) 3.8 4.4-11.3 L [facility] LancasterEosinophils (%) (Auto)2019-03-15 02:16:00 * Test Item Value Reference Range Interpretation Comments Eosinophils (%) (Auto) (test code = 713-8) 1.8 0.0-6.0 [facility] LancasterBasophils (%) (Auto)2019-03-15 02:16:00* Test Item Value Reference Range Interpretation Comments Basophils (%) (Auto) (test code = 706-2) 0.9 0.0-1.0 [facility] LancasterIM GRANULOCYTES %2019-03-15 02:16:00* Test Item Value Reference Range Interpretation Comments IM GRANULOCYTES % (test code = IM GRANULOCYTES %) 1.6 0.0- 1.0 H [facility] LancasterNeutrophils # (Auto)2019-03-15 02:16:00* Test Item Value Reference Range Interpretation Comments Neutrophils # (Auto) (test code = 751-8) 4.0 2.1-6.9 [facility] LancasterLymphocytes # (Auto)2019-03-15 02:16:00* Test Item Value Reference Range Interpretation Comments Lymphocytes # (Auto) (test code = 04647-6) 1.1 1.0-3.2 [facility] LancasterMonocytes # (Auto)2019-03-15 02:16:00* Test Item Value Reference Range Interpretation Comments Monocytes # (Auto) (test code = 742-7) 0.2 0.2-0.8 [facility] LancasterEosinophils # (Auto)2019-03-15 02:16:00* Test Item Value Reference Range Interpretation Comments Eosinophils # (Auto) (test code = 711-2) 0.1 0.0-0.4 [facility] LancasterBasophils # (Auto)2019-03-15 02:16:00* Test Item Value Reference Range Interpretation Comments Basophils # (Auto) (test code = 704-7) 0.1 0.0-0.1 [facility] LancasterAbsolute Immature Granulocyte (auto 2019-03-15 02:16:00* Test Item Value Reference Range Interpretation Comments Absolute Immature Granulocyte (auto (joseph t code = Absolute Immature Granulocyte (auto) 0.09 0-0.1 [facility] LancasterWhite Blood Rsyvk7982-34-96 02:16:00* Test Item Value Reference Range Interpretation Comments White Blood Count (test code = 6690-2) 5.52 4.8-10.8 [facility] LancasterRed Blood Hmnfm4606-98-06 02:16:00* Test Item Value Reference Range Interpretation Comments Red Blood Count (test code = 789-8) 4.47 3.6-5.1 [facility] LancasterHemoglobin2019-08-23 02:16:00* Test Item Value Reference Range Interpretation Comments Hemoglobin (test code = 54045-9) 11.3 12.0-16.0 L [facility] LancasterHematocrit2019-08-23 02:16:00* Test Item Value Reference Range Interpretation Comments Hematocrit (test code = 4544-3) 38.1 34.2-44.1 [facility] LancasterMean Corpuscular Pwenut9632-02-60 02:16:00* Test Item Value Reference Range Interpretation Comments Mean Corpuscular Volume (test code = 787-2) 85.2 81-99 [facility] LancasterMean Corpuscular Tpkzlpuckl5753-84-74 02:16:00* Test Item Value Reference Range Interpretation Comments Mean Corpuscular Hemoglobin (test code = 785-6) 25.3 28-32 L [facility] LancasterMean Corpuscular Hemoglobin Concent 2019-03-15 02:16:00* Test Item Value Reference Range Interpretation Comments Mean Corpuscular Hemoglobin Concent (test code = 786-4) 29.7 31-35 L [facility] LancasterRed Cell Distribution Zdjud5923-08-89 02:16:00* Test Item Value Reference Range Interpretation Comments Red Cell Distribution Width (test code = 02773-7) 16.0 11.7 -14.4 H [facility] LancasterPlatelet Kwttg8600-75-42 02:16:00* Test Item Value Reference Range Interpretation Comments Platelet Count (test code = 777-3) 175 140-360 [facility] LancasterNeutrophils (%) (Auto)2019-03-15 02:16:00 * Test Item Value Reference Range Interpretation Comments Neutrophils (%) (Auto) (test code = 81274-8) 71.8 38.7-80.0 [facility] LancasterLymphocytes (%) (Auto)2019-03-15 02:16:00 * Test Item Value Reference Range Interpretation Comments Lymphocytes (%) (Auto) (test code = 736-9) 20.1 18.0-39.1 [facility] LancasterMonocytes (%) (Auto)2019-03-15 02:16:00* Test Item Value Reference Range Interpretation Comments Monocytes (%) (Auto) (test code = 5905-5) 3.8 4.4-11.3 L [facility] LancasterEosinophils (%) (Auto)2019-03-15 02:16:00 * Test Item Value Reference Range Interpretation Comments Eosinophils (%) (Auto) (test code = 713-8) 1.8 0.0-6.0 [facility] LancasterBasophils (%) (Auto)2019-03-15 02:16:00* Test Item Value Reference Range Interpretation Comments Basophils (%) (Auto) (test code = 706-2) 0.9 0.0-1.0 [facility] LancasterIM GRANULOCYTES %2019-03-15 02:16:00* Test Item Value Reference Range Interpretation Comments IM GRANULOCYTES % (test code = IM GRANULOCYTES %) 1.6 0.0- 1.0 H [facility] LancasterNeutrophils # (Auto)2019-03-15 02:16:00* Test Item Value Reference Range Interpretation Comments Neutrophils # (Auto) (test code = 751-8) 4.0 2.1-6.9 [facility] LancasterLymphocytes # (Auto)2019-03-15 02:16:00* Test Item Value Reference Range Interpretation Comments Lymphocytes # (Auto) (test code = 79402-5) 1.1 1.0-3.2 [facility] LancasterMonocytes # (Auto)2019-03-15 02:16:00* Test Item Value Reference Range Interpretation Comments Monocytes # (Auto) (test code = 742-7) 0.2 0.2-0.8 [facility] LancasterEosinophils # (Auto)2019-03-15 02:16:00* Test Item Value Reference Range Interpretation Comments Eosinophils # (Auto) (test code = 711-2) 0.1 0.0-0.4 [facility] LancasterBasophils # (Auto)2019-03-15 02:16:00* Test Item Value Reference Range Interpretation Comments Basophils # (Auto) (test code = 704-7) 0.1 0.0-0.1 [facility] LancasterAbsolute Immature Granulocyte (auto 2019-03-15 02:16:00* Test Item Value Reference Range Interpretation Comments Absolute Immature Granulocyte (auto (joseph t code = Absolute Immature Granulocyte (auto) 0.09 0-0.1 [facility] CenterBed[facility] Oaxnvis9522-91-00 05:15:00* Test Item Value Reference Range Interpretation Comments Bedside Glucose (test code = 15690-4) 329 70-120 H Meter ID: [id number] [facility] CenterFORE[facility] LEFT 2 VIEW 2019-02-24 01:23:00 [facility] [address] [place] [address] Patient Name: KALYANI TALAVERA MR #: [id number] : 1955 Age/Sex: 63/F Req #: [id number] Adm Physician: Ordered by: JACQUES JANE MD Report #: [id number] Location: ER Room/Bed: Procedure: 43 DX/FOREARM LEFT 2 VIEW Exam Date: 02/24/19 Exam T jade: 0047 REPORT STATUS: Signed LEFT FOREARM RADIOGRAPHS 3 VIEWS HISTORY: Pain COMPARISON: None avai lable. FINDINGS: Bones: No acute displaced fracture. Osseous a lignment is within normal limits. Joints: The joint spaces are well-maint ained. Soft tissues: The soft tissues appear unremarkable. IMPRESSIO N: No acute radiographic abnormality. Signed by: Bradley Harvey DO o n 02/24/2019 1:24 AM Dictated By: BRADLEY HARVEY DO Electronically Christiane d By: BRADLEY HARVEY DO on 02/24/19123 Transcribed By: JIM on 02/24/19123 COPY TO: JACQUES JANE MD Sodium Dzpih9413-70-44 00:35:00* Test Item Value Reference Range Interpretation Comments Sodium Level (test code = 2951-2) 135 136-145 L [facility] LancasterPotassium Lqjki4128-94-56 00:35:00* Test Item Value Reference Range Interpretation Comments Potassium Level (test code = 2823-3) 4.4 3.5-5.1 [facility] LancasterChloride Kwboy1160-60-94 00:35:00* Test Item Value Reference Range Interpretation Comments Chloride Level (test code = 2075-0) 102 98-107 [facility] LancasterCarbon Dioxide Nqxkg2954-21-94 00:35:00* Test Item Value Reference Range Interpretation Comments Carbon Dioxide Level (test code = 2028-9) 21 22-29 L [facility] LancasterAnion Tdt7334-88-57 00:35:00* Test Item Value Reference Range Interpretation Comments Anion Gap (test code = 69504-1) 16.4 8-16 H [facility] LancasterBlood Urea Nfeorovb7841-91-51 00:35:00* Test Item Value Reference Range Interpretation Comments Blood Urea Nitrogen (test code = 3094-0) 24 7-26 [facility] LancasterCreatinine2019-08-04 00:35:00* Test Item Value Reference Range Interpretation Comments Creatinine (test code = 2160-0) 1.44 0.57-1.11 H [facility] LancasterBUN/Creatinine Ntjva1865-07-14 00:35:00* Test Item Value Reference Range Interpretation Comments BUN/Creatinine Ratio (test code = 3097-3) 17 6-25 [facility] LancasterEstimat Glomerular Filtration Rate 2019-02-24 00:35:00* Test Item Value Reference Range Interpretation Comments Estimat Glomerular Filtration Rate (test code = 522903033) 37 >60 L Ranges were taken from the National Kidney Disease Education Program and the [facility] literature.Reference ranges:60 or greater: Hqjzfb84-39 ( for 3 consecutive months): Chronic kidney disease 15 or less: Kidney failureCrescent Medical Center LancasterGlucose Adwir4216-08-81 00:35:00* Test Item Value Reference Range Interpretation Comments Glucose Level (test code = JAU9957) 665 74-118 Results repeated and called to SHILPA Jack at 0034 on 02/24/19 by Sagar Alegria. Malinda simpson back and verified.[facility] LancasterCalcium Level 2019-02-24 00:35:00* Test Item Value Reference Range Interpretation Comments Calcium Level (test code = 72890-1) 9.5 8.4-10.2 [facility] LancasterTotal Geqzoxyob4668-08-76 00:35:00* Test Item Value Reference Range Interpretation Comments Total Bilirubin (test code = 1975-2) 0.3 0.2-1.2 [facility] LancasterAspartate Amino Transf (AST/SGOT) 2019-02-24 00:35:00* Test Item Value Reference Range Interpretation Comments Aspartate Amino Transf (AST/SGOT) (test code = Aspartate Amino Transf (AST/SGOT)) 12 5-34 [facility] LancasterAlanine Aminotransferase (ALT/SGPT) 2019-02-24 00:35:00* Test Item Value Reference Range Interpretation Comments Alanine Aminotransferase (ALT/SGPT) (test code = 1742-6) 23 0-55 [facility] LancasterTotal Htyqwzp1652-30-06 00:35:00* Test Item Value Reference Range Interpretation Comments Total Protein (test code = 2885-2) 6.7 6.5-8.1 [facility] LancasterAlbumin2019-08-04 00:35:00* Test Item Value Reference Range Interpretation Comments Albumin (test code = 1751-7) 3.5 3.5-5.0 [facility] LancasterGlobulin2019-08-04 00:35:00* Test Item Value Reference Range Interpretation Comments Globulin (test code = 44741-7) 3.2 2.3-3.5 [facility] LancasterAlbumin/Globulin Zesff8132-05-01 00:35:00 * Test Item Value Reference Range Interpretation Comments Albumin/Globulin Ratio (test code = 1759-0) 1.1 0.8-2.0 [facility] LancasterAlkaline Klsvrskulgv3333-97-03 00:35:00* Test Item Value Reference Range Interpretation Comments Alkaline Phosphatase (test code = 6768-6) 82 40-150 [facility] LancasterTotal Dydmaqzsw0340-97-95 00:35:00* Test Item Value Reference Range Interpretation Comments Total Bilirubin (test code = 1975-2) 0.3 0.2-1.2 [facility] LancasterAspartate Amino Transf (AST/SGOT) 2019-02-24 00:35:00* Test Item Value Reference Range Interpretation Comments Aspartate Amino Transf (AST/SGOT) (test code = Aspartate Amino Transf (AST/SGOT)) 12 5-34 [facility] LancasterAlanine Aminotransferase (ALT/SGPT) 2019-02-24 00:35:00* Test Item Value Reference Range Interpretation Comments Alanine Aminotransferase (ALT/SGPT) (test code = 1742-6) 23 0-55 [facility] LancasterTotal Mvcpydx2595-06-42 00:35:00* Test Item Value Reference Range Interpretation Comments Total Protein (test code = 2885-2) 6.7 6.5-8.1 [facility] LancasterAlbumin2019-08-04 00:35:00* Test Item Value Reference Range Interpretation Comments Albumin (test code = 1751-7) 3.5 3.5-5.0 [facility] LancasterGlobulin2019-08-04 00:35:00* Test Item Value Reference Range Interpretation Comments Globulin (test code = 08913-2) 3.2 2.3-3.5 [facility] LancasterAlbumin/Globulin Mmpnl4027-45-28 00:35:00 * Test Item Value Reference Range Interpretation Comments Albumin/Globulin Ratio (test code = 1759-0) 1.1 0.8-2.0 [facility] LancasterAlkaline Noyihttkekj9733-26-15 00:35:00* Test Item Value Reference Range Interpretation Comments Alkaline Phosphatase (test code = 6768-6) 82 40-150 [facility] LancasterTotal Pwuxxljqm6678-92-64 00:35:00* Test Item Value Reference Range Interpretation Comments Total Bilirubin (test code = 1975-2) 0.3 0.2-1.2 [facility] LancasterAspartate Amino Transf (AST/SGOT) 2019-02-24 00:35:00* Test Item Value Reference Range Interpretation Comments Aspartate Amino Transf (AST/SGOT) (test code = Aspartate Amino Transf (AST/SGOT)) [facility] LancasterAlanine Aminotransferase (ALT/SGPT) 2019-02-24 00:35:00* Test Item Value Reference Range Interpretation Comments Alanine Aminotransferase (ALT/SGPT) (test code = 1742-6) 23 0-55 [facility] LancasterTotal Dtwbfyd9955-24-92 00:35:00* Test Item Value Reference Range Interpretation Comments Total Protein (test code = 2885-2) 6.7 6.5-8.1 [facility] 00:35:00* Test Item Value Reference Range Interpretation Comments Albumin (test code = 1751-7) 3.5 3.5-5.0 [facility] LancasterGlobulin2019-[facility] 00:35:00* Test Item Value Reference Range Interpretation Comments Globulin (test code = 83936-3) 3.2 2.3-3.5 [facility] LancasterAlbumin/Globulin Zkgmr6107-04-79 00:35:00 * Test Item Value Reference Range Interpretation Comments Albumin/Globulin Ratio (test code = 1759-0) 1.1 0.8-2.0 [facility] LancasterAlkaline Scsugnxnrsg5293-42-42 00:35:00* Test Item Value Reference Range Interpretation Comments Alkaline Phosphatase (test code = 6768-6) 82 40-150 [facility] LancasterTotal Hsyqafpol7187-01-71 00:35:00* Test Item Value Reference Range Interpretation Comments Total Bilirubin (test code = 1975-2) 0.3 0.2-1.2 [facility] LancasterAspartate Amino Transf (AST/SGOT) 2019-02-24 00:35:00* Test Item Value Reference Range Interpretation Comments Aspartate Amino Transf (AST/SGOT) (test code = Aspartate Amino Transf (AST/SGOT)) [facility]Al[facility] Aminotransferase (ALT/SGPT) 2019-02-24 00:35:00* Test Item Value Reference Range Interpretation Comments Alanine Aminotransferase (ALT/SGPT) (test code = 1742-6) 23 0-55 [facility] LancasterTotal Xibsarx3997-57-47 00:35:00* Test Item Value Reference Range Interpretation Comments Total Protein (test code = 2885-2) 6.7 6.5-8.1 [facility] LancasterAlbumin2019-08-04 00:35:00* Test Item Value Reference Range Interpretation Comments Albumin (test code = 1751-7) 3.5 3.5-5.0 [facility] LancasterGlobulin2019-08-04 00:35:00* Test Item Value Reference Range Interpretation Comments Globulin (test code = 61168-0) 3.2 2.3-3.5 [facility] LancasterAlbumin/Globulin Ayzfm9040-60-84 00:35:00 * Test Item Value Reference Range Interpretation Comments Albumin/Globulin Ratio (test code = 1759-0) 1.1 0.8-2.0 [facility] LancasterAlkaline Bewgifpkltj2272-43-21 00:35:00* Test Item Value Reference Range Interpretation Comments Alkaline Phosphatase (test code = 6768-6) 82 40-150 [facility] Uzyznwslk1269-38-82 00:35:00* Test Item Value Reference Range Interpretation Comments Total Bilirubin (test code = 1975-2) 0.3 0.2-1.2 [facility] LancasterAspartate Amino Transf (AST/SGOT) 2019-02-24 00:35:00* Test Item Value Reference Range Interpretation Comments Aspartate Amino Transf (AST/SGOT) (test code = Aspartate Amino Transf (AST/SGOT)) 12 5-34 [facility] LancasterAlanine Amin[facility] (ALT/SGPT) 2019-02-24 00:35:00* Test Item Value Reference Range Interpretation Comments Alanine Aminotransferase (ALT/SGPT) (test code = 1742-6) 23 0-55 [facility] LancasterTotal Xydrpiu2232-51-42 00:35:00* Test Item Value Reference Range Interpretation Comments Total Protein (test code = 2885-2) 6.7 6.5-8.1 [facility] LancasterAlbumin2019-08-04 00:35:00* Test Item Value Reference Range Interpretation Comments Albumin (test code = 1751-7) 3.5 3.5-5.0 [facility] LancasterGlobulin2019-08-04 00:35:00* Test Item Value Reference Range Interpretation Comments Globulin (test code = 57519-5) 3.2 2.3-3.5 [facility] LancasterAlbumin/Globulin Zzexg7486-53-43 00:35:00 * Test Item Value Reference Range Interpretation Comments Albumin/Globulin Ratio (test code = 1759-0) 1.1 0.8-2.0 [facility] LancasterAlkaline Thryklqodmo8950-27-64 00:35:00* Test Item Value Reference Range Interpretation Comments Alkaline Phosphatase (test code = 6768-6) 82 40-150 [facility] LancasterWhite Blood Phwgt4917-44-58 00:18:00* Test Item Value Reference Range Interpretation Comments White Blood Count (test code = 6690-2) 5.09 4.8-10.8 [facility] LancasterRed Blood Rzdyd7890-81-36 00:18:00* Test Item Value Reference Range Interpretation Comments Red Blood Count (test code = 789-8) 4.64 3.6-5.1 [facility] LancasterHemoglobin2019-08-04 00:18:00* Test Item Value Reference Range Interpretation Comments Hemoglobin (test code = 30663-4) 11.8 12.0-16.0 L [facility] LancasterHematocrit2019-08-04 00:18:00* Test Item Value Reference Range Interpretation Comments Hematocrit (test code = 4544-3) 37.6 34.2-44.1 [facility] LancasterMean Corpuscular Xjhsup7119-79-59 00:18:00* Test Item Value Reference Range Interpretation Comments Mean Corpuscular Volume (test code = 787-2) 81.0 81-99 [facility] LancasterMean Corpuscular Cedxmygvwx1174-98-75 00:18:00* Test Item Value Reference Range Interpretation Comments Mean Corpuscular Hemoglobin (test code = 785-6) 25.4 28-32 L [facility] LancasterMean Corpuscular Hemoglobin Concent 2019-02-24 00:18:00* Test Item Value Reference Range Interpretation Comments Mean Corpuscular Hemoglobin Concent (test code = 786-4) 31.4 31-35 [facility] LancasterRed Cell Distribution Rglsc7401-50-48 00:18:00* Test Item Value Reference Range Interpretation Comments Red Cell Distribution Width (test code = 66922-6) 15.5 11.7 -14.4 H [facility] LancasterPlatelet Zxhmq5904-16-68 00:18:00* Test Item Value Reference Range Interpretation Comments Platelet Count (test code = 777-3) 155 140-360 [facility] LancasterNeutrophils (%) (Auto)2019-02-24 00:18:00 * Test Item Value Reference Range Interpretation Comments Neutrophils (%) (Auto) (test code = 67773-7) 69.6 38.7-80.0 [facility] LancasterLymphocytes (%) (Auto)2019-02-24 00:18:00 * Test Item Value Reference Range Interpretation Comments Lymphocytes (%) (Auto) (test code = 736-9) 20.0 18.0-39.1 [facility] LancasterMonocytes (%) (Auto)2019-02-24 00:18:00* Test Item Value Reference Range Interpretation Comments Monocytes (%) (Auto) (test code = 5905-5) 5.1 4.4-11.3 [facility] LancasterEosinophils (%) (Auto)2019-02-24 00:18:00 * Test Item Value Reference Range Interpretation Comments Eosinophils (%) (Auto) (test code = 713-8) 3.3 0.0-6.0 [facility] LancasterBasophils (%) (Auto)2019-02-24 00:18:00* Test Item Value Reference Range Interpretation Comments Basophils (%) (Auto) (test code = 706-2) 1.0 0.0-1.0 [facility] LancasterIM GRANULOCYTES %2019-02-24 00:18:00* Test Item Value Reference Range Interpretation Comments IM GRANULOCYTES % (test code = IM GRANULOCYTES %) 1.0 0.0- 1.0 [facility] LancasterNeutrophils # (Auto)2019-02-24 00:18:00* Test Item Value Reference Range Interpretation Comments Neutrophils # (Auto) (test code = 751-8) 3.5 2.1-6.9 [facility] LancasterLymphocytes # (Auto)2019-02-24 00:18:00* Test Item Value Reference Range Interpretation Comments Lymphocytes # (Auto) (test code = 29296-8) 1.0 1.0-3.2 [facility] LancasterMonocytes # (Auto)2019-02-24 00:18:00* Test Item Value Reference Range Interpretation Comments Monocytes # (Auto) (test code = 742-7) 0.3 0.2-0.8 [facility] LancasterEosinophils # (Auto)2019-02-24 00:18:00* Test Item Value Reference Range Interpretation Comments Eosinophils # (Auto) (test code = 711-2) 0.2 0.0-0.4 [facility] LancasterBasophils # (Auto)2019-02-24 00:18:00* Test Item Value Reference Range Interpretation Comments Basophils # (Auto) (test code = 704-7) 0.1 0.0-0.1 [facility] LancasterAbsolute Immature Granulocyte (auto 2019-02-24 00:18:00* Test Item Value Reference Range Interpretation Comments Absolute Immature Granulocyte (auto (joseph t code = Absolute Immature Granulocyte (auto) 0.05 0-0.1 [facility] LancasterBedside Lbcfiwy2863-34-54 12:27:00* Test Item Value Reference Range Interpretation Comments Bedside Glucose (test code = 87253-8) 302 70-120 H Meter ID: [id number] Plainviewodium Level 2019-01-21 06:25:00* Test Item Value Reference Range Interpretation Comments Sodium Level (test code = 2951-2) 137 136-145 [facility] LancasterPotassium Qvphh8748-69-02 06:25:00* Test Item Value Reference Range Interpretation Comments Potassium Level (test code = 2823-3) 4.8 3.5-5.1 [facility] LancasterChloride Kmpmw5135-17-18 06:25:00* Test Item Value Reference Range Interpretation Comments Chloride Level (test code = 2075-0) 101 98-107 [facility] LancasterCarbon Dioxide Sfnjj6056-30-09 06:25:00* Test Item Value Reference Range Interpretation Comments Carbon Dioxide Level (test code = 2028-9) 29 22-29 [facility] LancasterAnion Svf5049-94-30 06:25:00* Test Item Value Reference Range Interpretation Comments Anion Gap (test code = 22029-7) 11.8 8-16 [facility] LancasterBlood Urea Vnguklit9397-24-19 06:25:00* Test Item Value Reference Range Interpretation Comments Blood Urea Nitrogen (test code = 3094-0) 17 7-26 [facility] LancasterCreatinine2019-07-01 06:25:00* Test Item Value Reference Range Interpretation Comments Creatinine (test code = 2160-0) 0.98 0.57-1.11 [facility] LancasterBUN/Creatinine Nndee7686-91-38 06:25:00* Test Item Value Reference Range Interpretation Comments BUN/Creatinine Ratio (test code = 3097-3) 17 6-25 [facility] LancasterEstimat Glomerular Filtration Rate 2019-01-21 06:25:00* Test Item Value Reference Range Interpretation Comments Estimat Glomerular Filtration Rate (test code = 115368164) 58 >60 L Ranges were taken from the National Kidney Disease Education Program and the [facility] literature.Reference ranges:60 or greater: Jbajij87-19 ( for 3 consecutive months): Chronic kidney disease 15 or less: Kidney failureCrescent Medical Center LancasterGlucose Zlnjg8696-97-87 06:25:00* Test Item Value Reference Range Interpretation Comments Glucose Level (test code = LQB9290) 252 74-118 H [facility] LancasterCalcium Scznl3771-98-03 06:25:00* Test Item Value Reference Range Interpretation Comments Calcium Level (test code = 11371-1) 9.2 8.4-10.2 [facility] LancasterTotal Dpzlqsyxo7422-33-69 06:25:00* Test Item Value Reference Range Interpretation Comments Total Bilirubin (test code = 1975-2) 0.2 0.2-1.2 [facility] LancasterAspartate Amino Transf (AST/SGOT) 2019-01-21 06:25:00* Test Item Value Reference Range Interpretation Comments Aspartate Amino Transf (AST/SGOT) (test code = Aspartate Amino Transf (AST/SGOT)) 13 5-34 [facility] LancasterAlanine Aminotransferase (ALT/SGPT) 2019-01-21 06:25:00* Test Item Value Reference Range Interpretation Comments Alanine Aminotransferase (ALT/SGPT) (test code = 1742-6) 17 0-55 [facility] LancasterTotal Heuvwny3423-90-61 06:25:00* Test Item Value Reference Range Interpretation Comments Total Protein (test code = 2885-2) 6.3 6.5-8.1 L [facility] LancasterAlbumin2019-07-01 06:25:00* Test Item Value Reference Range Interpretation Comments Albumin (test code = 1751-7) 3.2 3.5-5.0 L [facility] LancasterGlobulin2019-07-01 06:25:00* Test Item Value Reference Range Interpretation Comments Globulin (test code = 88058-3) 3.1 2.3-3.5 [facility] LancasterAlbumin/Globulin Bphra2017-53-00 06:25:00 * Test Item Value Reference Range Interpretation Comments Albumin/Globulin Ratio (test code = 1759-0) 1.0 0.8-2.0 [facility] LancasterAlkaline Mrsafurbygu6821-29-11 06:25:00* Test Item Value Reference Range Interpretation Comments Alkaline Phosphatase (test code = 6768-6) 78 40-150 [facility] LancasterWhite Blood Zwxky4107-14-36 06:21:00* Test Item Value Reference Range Interpretation Comments White Blood Count (test code = 6690-2) 4.81 4.8-10.8 [facility] LancasterRed Blood Oevqq6755-04-51 06:21:00* Test Item Value Reference Range Interpretation Comments Red Blood Count (test code = 789-8) 4.90 3.6-5.1 [facility] LancasterHemoglobin2019-07-01 06:21:00* Test Item Value Reference Range Interpretation Comments Hemoglobin (test code = 04651-4) 12.0 12.0-16.0 [facility] LancasterHematocrit2019-07-01 06:21:00* Test Item Value Reference Range Interpretation Comments Hematocrit (test code = 4544-3) 39.4 34.2-44.1 [facility] LancasterMean Corpuscular Nsievr1431-85-92 06:21:00* Test Item Value Reference Range Interpretation Comments Mean Corpuscular Volume (test code = 787-2) 80.4 81-99 L [facility] LancasterMean Corpuscular Ojwhctfbdh7408-66-38 06:21:00* Test Item Value Reference Range Interpretation Comments Mean Corpuscular Hemoglobin (test code = 785-6) 24.5 28-32 [facility] Concent 2019-01-21 06:21:00* Test Item Value Reference Range Interpretation Comments Mean Corpuscular Hemoglobin Concent (test code = 786-4) 30.5 31-35 L [facility] LancasterRed Cell Distribution Badhf0074-13-28 06:21:00* Test Item Value Reference Range Interpretation Comments Red Cell Distribution Width (test code = 09466-2) 14.6 11.7 -14.4 H [facility] LancasterPlatelet Xhkko2286-43-87 06:21:00* Test Item Value Reference Range Interpretation Comments Platelet Count (test code = 777-3) 157 140-360 [facility] LancasterNeutrophils (%) (Auto)2019-01-21 06:21:00 * Test Item Value Reference Range Interpretation Comments Neutrophils (%) (Auto) (test code = 53820-1) 62.2 38.7-80.0 [facility] LancasterLymphocytes (%) (Auto)2019-01-21 06:21:00 * Test Item Value Reference Range Interpretation Comments Lymphocytes (%) (Auto) (test code = 736-9) 25.8 18.0-39.1 [facility] LancasterMonocytes (%) (Auto)2019-01-21 06:21:00* Test Item Value Reference Range Interpretation Comments Monocytes (%) (Auto) (test code = 5905-5) 5.8 4.4-11.3 [facility] LancasterEosinophils (%) (Auto)2019-01-21 06:21:00 * Test Item Value Reference Range Interpretation Comments Eosinophils (%) (Auto) (test code = 713-8) 5.0 0.0-6.0 [facility] LancasterBasophils (%) (Auto)2019-01-21 06:21:00* Test Item Value Reference Range Interpretation Comments Basophils (%) (Auto) (test code = 706-2) 0.6 0.0-1.0 [facility] LancasterIM GRANULOCYTES %2019-01-21 06:21:00* Test Item Value Reference Range Interpretation Comments IM GRANULOCYTES % (test code = IM GRANULOCYTES %) 0.6 0.0- 1.0 [facility] LancasterNeutrophils # (Auto)2019-01-21 06:21:00* Test Item Value Reference Range Interpretation Comments Neutrophils # (Auto) (test code = 751-8) 3.0 2.1-6.9 [facility] LancasterLymphocytes # (Auto)2019-01-21 06:21:00* Test Item Value Reference Range Interpretation Comments Lymphocytes # (Auto) (test code = 61808-6) 1.2 1.0-3.2 [facility] LancasterMonocytes # (Auto)2019-01-21 06:21:00* Test Item Value Reference Range Interpretation Comments Monocytes # (Auto) (test code = 742-7) 0.3 0.2-0.8 [facility] LancasterEosinophils # (Auto)2019-01-21 06:21:00* Test Item Value Reference Range Interpretation Comments Eosinophils # (Auto) (test code = 711-2) 0.2 0.0-0.4 [facility] LancasterBasophils # (Auto)2019-01-21 06:21:00* Test Item Value Reference Range Interpretation Comments Basophils # (Auto) (test code = 704-7) 0.0 0.0-0.1 [facility] LancasterAbsolute Immature Granulocyte (auto 2019-01-21 06:21:00* Test Item Value Reference Range Interpretation Comments Absolute Immature Granulocyte (auto (joseph t code = Absolute Immature Granulocyte (auto) 0.03 0-0.1 [facility] LancasterCholesterol Qyscv4165-49-18 15:27:00* Test Item Value Reference Range Interpretation Comments Cholesterol Level (test code = 2093-3) 171 0-199 Less than 200 mg/dL Low Mnxj059 - 239 mg/dL Borderline Jazk315 m g/dl and greater High Risk [facility] LancasterLDL Aeytwqemtvl5225-26-95 15:27:00* Test Item Value Reference Range Interpretation Comments LDL Cholesterol (test code = 2089-1) 103 60-130 [facility] LancasterHDL Nxngrjypriz5852-33-97 15:27:00* Test Item Value Reference Range Interpretation Comments HDL Cholesterol (test code = 2085-9) 30 40-60 L [facility] LancasterCholesterol/HDL Nnacw2193-60-18 15:27:00 * Test Item Value Reference Range Interpretation Comments Cholesterol/HDL Ratio (test code = 9830-1) 5.7 3.0-3.6 H [facility] LancasterCholesterol Kxgel6137-94-36 15:27:00* Test Item Value Reference Range Interpretation Comments Cholesterol Level (test code = 3-3) 171 0-199 Less than 200 mg/dL Low Iqdx636 - 239 mg/dL Borderline Kdjq760 m g/dl and greater High Risk [facility] LancasterLDL Zeurkldetjs7200-64-88 15:27:00* Test Item Value Reference Range Interpretation Comments LDL Cholesterol (test code = 2089-1) 103 60-130 [facility] Qyiqcnsydqg7666-77-97 15:27:00* Test Item Value Reference Range Interpretation Comments HDL Cholesterol (test code = 2085-9) 30 40-60 L [facility] LancasterCholesterol/HDL Tizar7573-44-12 15:27:00 * Test Item Value Reference Range Interpretation Comments Cholesterol/HDL Ratio (test code = 9830-1) 5.7 3.0-3.6 H [facility] LancasterCholesterol Xtpbj8173-59-05 15:27:00* Test Item Value Reference Range Interpretation Comments Cholesterol Level (test code = 2093-3) 171 0-199 Less than 200 mg/dL Low Fonr227 - 239 mg/dL Borderline Awil812 m g/dl and greater High Risk [facility] Imumnwrmaak6438-35-66 15:27:00* Test Item Value Reference Range Interpretation Comments LDL Cholesterol (test code = 2089-1) 103 60-130 [facility] Cjgktfmoxnj9668-25-57 15:27:00* Test Item Value Reference Range Interpretation Comments HDL Cholesterol (test code = 2085-9) 30 40-60 L [facility] LancasterCholesterol/HDL Jfzyr2173-23-10 15:27:00 * Test Item Value Reference Range Interpretation Comments Cholesterol/HDL Ratio (test code = 9830-1) 5.7 3.0-3.6 H [facility] LancasterCholesterol Vezsg3849-02-11 15:27:00* Test Item Value Reference Range Interpretation Comments Cholesterol Level (test code = 2093-3) 171 0-199 Less than 200 mg/dL Low Jqma082 - 239 mg/dL Borderline Axss924 m g/dl and greater High Risk [facility] LancasterLDL Ujuoejffvgp4468-26-28 15:27:00* Test Item Value Reference Range Interpretation Comments LDL Cholesterol (test code = 2089-1) 103 60-130 [facility] Batbfnfwswe9016-93-11 15:27:00* Test Item Value Reference Range Interpretation Comments HDL Cholesterol (test code = 2085-9) 30 40-60 L [facility] LancasterCholesterol/HDL Hbqix3362-33-31 15:27:00 * Test Item Value Reference Range Interpretation Comments Cholesterol/HDL Ratio (test code = 9830-1) 5.7 3.0-3.6 H [facility] LancasterCholesterol Puryk4975-28-00 15:27:00* Test Item Value Reference Range Interpretation Comments Cholesterol Level (test code = 3-3) 171 0-199 Less than 200 mg/dL Low Tykc936 - 239 mg/dL Borderline Plbc693 m g/dl and greater High Risk [facility] LancasterLDL Gvylvptgmta4420-83-50 15:27:00* Test Item Value Reference Range Interpretation Comments LDL Cholesterol (test code = 9-1) 103 60-130 [facility] Caulbudzvug6270-80-40 15:27:00* Test Item Value Reference Range Interpretation Comments HDL Cholesterol (test code = 2085-9) 30 40-60 L [facility] LancasterCholesterol/HDL Dewlq1840-56-29 15:27:00 * Test Item Value Reference Range Interpretation Comments Cholesterol/HDL Ratio (test code = 9830-1) 5.7 3.0-3.6 H [facility] LancasterCholesterol Wwvfm0474-58-12 15:27:00* Test Item Value Reference Range Interpretation Comments Cholesterol Level (test code = 3-3) 171 0-199 Less than 200 mg/dL Low Mcim128 - 239 mg/dL Borderline Wspr034 m g/dl and greater High Risk [facility] LancasterLDL Avzjijypvuu1208-44-36 15:27:00* Test Item Value Reference Range Interpretation Comments LDL Cholesterol (test code = 9-) 103 60-130 [facility] Rmsocadqjbm5281-29-84 15:27:00* Test Item Value Reference Range Interpretation Comments HDL Cholesterol (test code = 2085-9) 30 40-60 L [facility] LancasterCholesterol/HDL Oraiw8430-15-27 15:27:00 * Test Item Value Reference Range Interpretation Comments Cholesterol/HDL Ratio (test code = 9830-1) 5.7 3.0-3.6 H [facility] LancasterTriglycerides Gemhy1591-97-22 13:34:00* Test Item Value Reference Range Interpretation Comments Triglycerides Level (test code = 2571-8) 190 0-149 H [facility] LancasterTriglycerides Fcfgc0829-39-49 13:34:00* Test Item Value Reference Range Interpretation Comments Triglycerides Level (test code = 2571-8) 190 0-149 H [facility] LancasterTriglycerlankenau [facility] Gzrqw2130-09-79 13:34:00* Test Item Value Reference Range Interpretation Comments Triglycerides Level (test code = 2571-8) 190 0-149 H [facility] LancasterTriglycerlankenau [facility] center Hpzlb8897-78-92 13:34:00* Test Item Value Reference Range Interpretation Comments Triglycerides Level (test code = 2571-8) 190 0-149 H [facility] LancasterTriglycerlankenau medical center Jmzqr5409-55-56 13:34:00* Test Item Value Reference Range Interpretation Comments Triglycerides Level (test code = 2571-8) 190 0-149 H [facility] LancasterTriglycerlankenau medical center Apivh8196-40-72 13:34:00* Test Item Value Reference Range Interpretation Comments Triglycerides Level (test code = 2571-8) 190 0-149 H [facility] Occult Ucrja7567-91-99 09:04:00* Test Item Value Reference Range Interpretation Comments Stool Occult Blood (test code = 2335-8) POSITIVE NEGATIVE [facility] Occult Swktc3713-79-59 09:04:00* Test Item Value Reference Range Interpretation Comments Stool Occult Blood (test code = 2335-8) POSITIVE NEGATIVE [facility] Occult Vpqtb3722-06-30 09:04:00* Test Item Value Reference Range Interpretation Comments Stool Occult Blood (test code = 2335-8) POSITIVE NEGATIVE [facility] Occult Fdupj2892-57-49 09:04:00* Test Item Value Reference Range Interpretation Comments Stool Occult Blood (test code = 2335-8) POSITIVE NEGATIVE [facility] Occult Dnidb6948-90-79 09:04:00* Test Item Value Reference Range Interpretation Comments Stool Occult Blood (test code = 2335-8) POSITIVE NEGATIVE H [facility] Occult Zlrml7508-93-61 09:04:00* Test Item Value Reference Range Interpretation Comments Stool Occult Blood (test code = 2335-8) POSITIVE NEGATIVE H [facility] LancasterThyroid Stimulating Hormone (TSH) 2019-01-18 06:48:00* Test Item Value Reference Range Interpretation Comments Thyroid Stimulating Hormone (TSH) (test code = 77838-7) 0.428 0.350-4.940 [facility] LancasterThyroid Stimulating H[facility]one (TSH) 2019-01-18 06:48:00* Test Item Value Reference Range Interpretation Comments Thyroid Stimulating Hormone (TSH) (test code = 38937-6) 0.428 0.350-4.940 [facility] LancasterThyroid Stimulating H[facility]one (TSH) 2019-01-18 06:48:00* Test Item Value Reference Range Interpretation Comments Thyroid Stimulating Hormone (TSH) (test code = 66337-2) 0.428 0.350-4.940 [facility] LancasterThyroid Stimulating H[facility]one (TSH) 2019-01-18 06:48:00* Test Item Value Reference Range Interpretation Comments Thyroid Stimulating Hormone (TSH) (test code = 41045-5) 0.428 0.350-4.940 [facility] LancasterThyroid Stimulating H[facility]one (TSH) 2019-01-18 06:48:00* Test Item Value Reference Range Interpretation Comments Thyroid Stimulating Hormone (TSH) (test code = 99192-1) 0.428 0.350-4.940 [facility] LancasterThyroid [facility]ulating [facility]one (TSH) 2019-01-18 06:48:00* Test Item Value Reference Range Interpretation Comments Thyroid Stimulating Hormone (TSH) (test code = 91825-5) 0.428 0.350-4.940 [facility] Kxibfacjo1341-14-32 15:32:00* Test Item Value Reference Range Interpretation Comments Free Thyroxine (test code = 3024-7) 1.05 0.8-1.8 [facility] Xskvykmrw8595-03-54 15:32:00* Test Item Value Reference Range Interpretation Comments Free Thyroxine (test code = 3024-7) 1.05 0.8-1.8 [facility] Uwlzhhcvm0400-91-99 15:32:00* Test Item Value Reference Range Interpretation Comments Free Thyroxine (test code = 3024-7) 1.05 0.8-1.8 [facility] Szaycchji9528-31-18 15:32:00* Test Item Value Reference Range Interpretation Comments Free Thyroxine (test code = 3024-7) 1.05 0.8-1.8 [facility] Teikvomvh2554-84-98 15:32:00* Test Item Value Reference Range Interpretation Comments Free Thyroxine (test code = 3024-7) 1.05 0.8-1.8 [facility] Bmfrdpifj8868-37-23 15:32:00* Test Item Value Reference Range Interpretation Comments Free Thyroxine (test code = 3024-7) 1.05 0.8-1.8 [facility] Tnmbel4706-21-31 14:58:00* Test Item Value Reference Range Interpretation Comments Creatine Kinase (test code = 2157-6) 23 29-168 L [facility] [id number] 14:58:00* Test Item Value Reference Range Interpretation Comments Creatine Kinase MB (test code = 63773-5) 0.60 0-5.0 [facility] Z0036-85-05 14:58:00* Test Item Value Reference Range Interpretation Comments Troponin I (test code = MHJ3875) < 0.001 0-0.300 [facility] Zaxtos2101-80-32 14:58:00* Test Item Value Reference Range Interpretation Comments Creatine Kinase (test code = 2157-6) 23 29-168 L [facility] QL7941-63-10 14:58:00* Test Item Value Reference Range Interpretation Comments Creatine Kinase MB (test code = 82566-8) 0.60 0-5.0 [place] 55666019-06-27 14:58:00* Test Item Value Reference Range Interpretation Comments Troponin I (test code = WKT8309) < 0.001 0-0.300 [facility] Zqonxm8141-11-21 14:58:00* Test Item Value Reference Range Interpretation Comments Creatine Kinase (test code = 2157-6) 23 29-168 L [facility] [id number] 14:58:00* Test Item Value Reference Range Interpretation Comments Creatine Kinase MB (test code = 15842-0) 0.60 0-5.0 [place] 55666019-06-27 14:58:00* Test Item Value Reference Range Interpretation Comments Troponin I (test code = ECH8175) < 0.001 0-0.300 [facility] Eblvvq1217-96-06 14:58:00* Test Item Value Reference Range Interpretation Comments Creatine Kinase (test code = 2157-6) 23 29-168 L [facility] YM0074-62-79 14:58:00* Test Item Value Reference Range Interpretation Comments Creatine Kinase MB (test code = 18814-2) 0.60 0-5.0 [place] 55666019-06-27 14:58:00* Test Item Value Reference Range Interpretation Comments Troponin I (test code = CZA7825) < 0.001 0-0.300 [facility] Mtytgq3099-95-52 14:58:00* Test Item Value Reference Range Interpretation Comments Creatine Kinase (test code = 2157-6) 23 29-168 L [facility] Kin[facility] LL1407-25-20 14:58:00* Test Item Value Reference Range Interpretation Comments Creatine Kinase MB (test code = 16901-0) 0.60 0-5.0 [place] 55666019-06-27 14:58:00* Test Item Value Reference Range Interpretation Comments Troponin I (test code = SVM5441) < 0.001 0-0.300 [facility] Oyykcx1759-08-33 14:58:00* Test Item Value Reference Range Interpretation Comments Creatine Kinase (test code = 2157-6) 23 29-168 L [facility] YH5420-13-86 14:58:00* Test Item Value Reference Range Interpretation Comments Creatine Kinase MB (test code = 56625-8) 0.60 0-5.0 [facility] W2081-52-91 14:58:00* Test Item Value Reference Range Interpretation Comments Troponin I (test code = NLU0674) < 0.001 0-0.300 [facility] A1[facility] Nwoykib4361-99-89 14:27:00 * Test Item Value Reference Range Interpretation Comments Hemoglobin A1c Percent (test code = Hemoglobin A1c Percent) 11.6 4.0-7.0 H [facility] Izcbxpd6769-84-05 14:27:00 * Test Item Value Reference Range Interpretation Comments Hemoglobin A1c Percent (test code = Hemoglobin A1c Percent) 11.6 4.0-7.0 H [facility] Dlrsxxx0423-77-61 14:27:00 * Test Item Value Reference Range Interpretation Comments Hemoglobin A1c Percent (test code = Hemoglobin A1c Percent) 11.6 4.0-7.0 H [facility] Stetaxf6949-36-93 14:27:00 * Test Item Value Reference Range Interpretation Comments Hemoglobin A1c Percent (test code = Hemoglobin A1c Percent) 11.6 4.0-7.0 H [facility] Cuvkojl5847-68-48 14:27:00 * Test Item Value Reference Range Interpretation Comments Hemoglobin A1c Percent (test code = Hemoglobin A1c Percent) 11.6 4.0-7.0 H [facility] Awvsuou2923-66-78 14:27:00 * Test Item Value Reference Range Interpretation Comments Hemoglobin A1c Percent (test code = Hemoglobin A1c Percent) 11.6 4.0-7.0 H [facility] Defquqy8973-93-56 06:11:00* Test Item Value Reference Range Interpretation Comments B-Type Natriuretic Peptide (test code = 69183-9) 14.3 0-100 [facility] Qznzakr8791-93-33 06:11:00* Test Item Value Reference Range Interpretation Comments B-Type Natriuretic Peptide (test code = 24585-6) 14.3 0-100 [facility] Sgawupe2160-70-82 06:11:00* Test Item Value Reference Range Interpretation Comments B-Type Natriuretic Peptide (test code = 21085-3) 14.3 0-100 [facility] Cqtjdeu9513-49-07 06:11:00* Test Item Value Reference Range Interpretation Comments B-Type Natriuretic Peptide (test code = 98673-4) 14.3 0-100 [facility] Mdxxzzy9706-29-31 06:11:00* Test Item Value Reference Range Interpretation Comments B-Type Natriuretic Peptide (test code = 48017-0) 14.3 0-100 [facility] Vxksqmy0585-68-67 06:11:00* Test Item Value Reference Range Interpretation Comments B-Type Natriuretic Peptide (test code = 88119-5) 14.3 0-100 [facility] IMV0378-50-37 21:13:00* Test Item Value Reference Range Interpretation Comments Urine WBC (test code = 5821-4) NONE 0-5 [facility] GKV4241-37-52 21:13:00* Test Item Value Reference Range Interpretation Comments Urine RBC (test code = 07378-3) NONE 0-5 [facility] Zhzhpaer9302-01-59 21:13:00* Test Item Value Reference Range Interpretation Comments Urine Bacteria (test code = 10650-8) FEW NONE [facility] Epithelial Ejipj7700-67-41 21:13:00 * Test Item Value Reference Range Interpretation Comments Urine Epithelial Cells (test code = 52344-6) MANY NONE [facility] UCN7325-65-61 21:13:00* Test Item Value Reference Range Interpretation Comments Urine WBC (test code = 5821-4) NONE 0-5 [facility] NTR2360-05-77 21:13:00* Test Item Value Reference Range Interpretation Comments Urine RBC (test code = 02723-3) NONE 0-5 [facility] Iwrbctzh5387-95-14 21:13:00* Test Item Value Reference Range Interpretation Comments Urine Bacteria (test code = 99788-0) FEW NONE [facility] Epithelial Cinxj8041-64-12 21:13:00 * Test Item Value Reference Range Interpretation Comments Urine Epithelial Cells (test code = 73562-6) MANY NONE [facility] MOY2605-32-55 21:13:00* Test Item Value Reference Range Interpretation Comments Urine WBC (test code = 5821-4) NONE 0-5 [facility] ZJQ3665-44-62 21:13:00* Test Item Value Reference Range Interpretation Comments Urine RBC (test code = 02605-9) NONE 0-5 [facility] Uifjvobr9293-87-73 21:13:00* Test Item Value Reference Range Interpretation Comments Urine Bacteria (test code = 98291-8) FEW NONE [facility] Ep[facility] Uexhj1899-60-29 21:13:00 * Test Item Value Reference Range Interpretation Comments Urine Epithelial Cells (test code = 06754-5) MANY NONE [facility] CAH8040-68-63 21:13:00* Test Item Value Reference Range Interpretation Comments Urine WBC (test code = 5821-4) NONE 0-5 [facility] JUP0939-61-49 21:13:00* Test Item Value Reference Range Interpretation Comments Urine RBC (test code = 54009-0) NONE 0-5 [facility] Wgoccday5531-30-07 21:13:00* Test Item Value Reference Range Interpretation Comments Urine Bacteria (test code = 33717-0) FEW NONE [facility] Epithelial Wbtyw8456-49-77 21:13:00 * Test Item Value Reference Range Interpretation Comments Urine Epithelial Cells (test code = 70768-8) MANY NONE [facility] YEU3161-12-40 21:13:00* Test Item Value Reference Range Interpretation Comments Urine WBC (test code = 5821-4) NONE 0-5 [facility] OGI1482-13-52 21:13:00* Test Item Value Reference Range Interpretation Comments Urine RBC (test code = 01467-5) NONE 0-5 [facility] Ioscebur9310-22-94 21:13:00* Test Item Value Reference Range Interpretation Comments Urine Bacteria (test code = 91028-6) FEW NONE [facility] Ep[facility]helial Bgbwj5434-04-84 21:13:00 * Test Item Value Reference Range Interpretation Comments Urine Epithelial Cells (test code = 13199-3) MANY NONE [facility] OFJ9366-92-49 21:13:00* Test Item Value Reference Range Interpretation Comments Urine WBC (test code = 5821-4) NONE 0-5 [facility] OEH9650-24-66 21:13:00* Test Item Value Reference Range Interpretation Comments Urine RBC (test code = 07553-2) NONE 0-5 [facility] Ypaurlki9227-10-75 21:13:00* Test Item Value Reference Range Interpretation Comments Urine Bacteria (test code = 56880-2) FEW NONE [facility] Ep[facility]helial Bdmqp5928-86-44 21:13:00 * Test Item Value Reference Range Interpretation Comments Urine Epithelial Cells (test code = 45197-6) MANY NONE [facility] Tupkx4300-80-24 21:08:00* Test Item Value Reference Range Interpretation Comments Urine Color (test code = 5778-6) YELLOW YELLOW [facility] Uvxazld9640-24-97 21:08:00* Test Item Value Reference Range Interpretation Comments Urine Clarity (test code = 40340-5) CLEAR CLEAR [facility] Specific Rmqcnox5960-88-33 21:08:00 * Test Item Value Reference Range Interpretation Comments Urine Specific [place] (test code = 5811-5) <=1.005 1.010-1.02 5 [facility] hQ4918-54-73 21:08:00* Test Item Value Reference Range Interpretation Comments Urine pH (test code = 19485-2) 6 5-7 [facility] Leukocyte Lfkciqla7503-41-68 21:08:00* Test Item Value Reference Range Interpretation Comments Urine Leukocyte Esterase (test code = 01875-6) NEGATIVE NEGATIV E [facility] Jexvfxr8337-49-51 21:08:00* Test Item Value Reference Range Interpretation Comments Urine Nitrite (test code = 19747-3) NEGATIVE NEGATIVE [facility] Ohwugxq9856-79-70 21:08:00* Test Item Value Reference Range Interpretation Comments Urine Protein (test code = 23476-1) NEGATIVE NEGATIVE [facility] Glucose (UA)2019-01-16 21:08:00* Test Item Value Reference Range Interpretation Comments Urine Glucose (UA) (test code = 80870-6) 3+ NEGATIVE [facility] Xrbjkpu8253-08-07 21:08:00* Test Item Value Reference Range Interpretation Comments Urine Ketones (test code = 89122-1) NEGATIVE NEGATIVE [facility] Pcxcggvmspkc8313-07-61 21:08:00* Test Item Value Reference Range Interpretation Comments Urine Urobilinogen (test code = 19865-4) 0.2 0.2-1 [facility] Zoflmzkzd1008-74-75 21:08:00* Test Item Value Reference Range Interpretation Comments Urine Bilirubin (test code = 1977-8) NEGATIVE NEGATIVE [facility] Kxjvu4823-98-38 21:08:00* Test Item Value Reference Range Interpretation Comments Urine Blood (test code = 84498-8) NEGATIVE NEGATIVE [facility] Qlitq6115-22-06 21:08:00* Test Item Value Reference Range Interpretation Comments Urine Color (test code = 5778-6) YELLOW YELLOW [facility] Vnkfbsz7636-38-05 21:08:00* Test Item Value Reference Range Interpretation Comments Urine Clarity (test code = 75508-9) CLEAR CLEAR [facility] Specific Mzperfk6229-49-37 21:08:00 * Test Item Value Reference Range Interpretation Comments Urine Specific [place] (test code = 5811-5) <=1.005 1.010-1.02 5 [facility] lM9866-10-18 21:08:00* Test Item Value Reference Range Interpretation Comments Urine pH (test code = 51126-8) 6 5-7 [facility] Leukocyte Aowsztvj4930-87-53 21:08:00* Test Item Value Reference Range Interpretation Comments Urine Leukocyte Esterase (test code = 59394-8) NEGATIVE NEGATIV E [facility] Vzcatcs7682-73-43 21:08:00* Test Item Value Reference Range Interpretation Comments Urine Nitrite (test code = 82242-5) NEGATIVE NEGATIVE [facility] Bchbblo7864-82-37 21:08:00* Test Item Value Reference Range Interpretation Comments Urine Protein (test code = 91015-4) NEGATIVE NEGATIVE [facility] Glucose (UA)2019-01-16 21:08:00* Test Item Value Reference Range Interpretation Comments Urine Glucose (UA) (test code = 39993-1) 3+ NEGATIVE [facility] Axkhyrn5936-00-81 21:08:00* Test Item Value Reference Range Interpretation Comments Urine Ketones (test code = 08341-1) NEGATIVE NEGATIVE [facility] Apkmiwgevijr9660-29-24 21:08:00* Test Item Value Reference Range Interpretation Comments Urine Urobilinogen (test code = 21011-5) 0.2 0.2-1 [facility] Bvyvdcuhf8247-05-42 21:08:00* Test Item Value Reference Range Interpretation Comments Urine Bilirubin (test code = 1977-8) NEGATIVE NEGATIVE [facility] Ggypf3811-38-87 21:08:00* Test Item Value Reference Range Interpretation Comments Urine Blood (test code = 82241-5) NEGATIVE NEGATIVE [facility] Ujhlh3146-27-90 21:08:00* Test Item Value Reference Range Interpretation Comments Urine Color (test code = 5778-6) YELLOW YELLOW [facility] Hrdtdin4332-27-74 21:08:00* Test Item Value Reference Range Interpretation Comments Urine Clarity (test code = 67948-1) CLEAR CLEAR [facility] Specific Xddmitp0076-74-34 21:08:00 * Test Item Value Reference Range Interpretation Comments Urine Specific [place] (test code = 5811-5) <=1.005 1.010-1.02 5 [facility] rI4559-24-61 21:08:00* Test Item Value Reference Range Interpretation Comments Urine pH (test code = 99821-2) 6 5-7 [facility] Leukocyte Jxfaeuqn9602-94-84 21:08:00* Test Item Value Reference Range Interpretation Comments Urine Leukocyte Esterase (test code = 46873-2) NEGATIVE NEGATIV E [facility] Ewznjfa8649-60-47 21:08:00* Test Item Value Reference Range Interpretation Comments Urine Nitrite (test code = 02351-0) NEGATIVE NEGATIVE [facility] Nzfhpaf3871-78-53 21:08:00* Test Item Value Reference Range Interpretation Comments Urine Protein (test code = 65799-8) NEGATIVE NEGATIVE [facility] Glucose (UA)2019-01-16 21:08:00* Test Item Value Reference Range Interpretation Comments Urine Glucose (UA) (test code = 84273-4) 3+ NEGATIVE [facility] Vegnpsa9715-14-13 21:08:00* Test Item Value Reference Range Interpretation Comments Urine Ketones (test code = 07111-5) NEGATIVE NEGATIVE [facility] Bssutfepkghn7169-22-36 21:08:00* Test Item Value Reference Range Interpretation Comments Urine Urobilinogen (test code = 40900-1) 0.2 0.2-1 [facility] Hqddejavk6480-74-98 21:08:00* Test Item Value Reference Range Interpretation Comments Urine Bilirubin (test code = 1977-8) NEGATIVE NEGATIVE [facility] Vngve1819-45-04 21:08:00* Test Item Value Reference Range Interpretation Comments Urine Blood (test code = 66116-8) NEGATIVE NEGATIVE [facility] Flhjq9091-52-04 21:08:00* Test Item Value Reference Range Interpretation Comments Urine Color (test code = 5778-6) YELLOW YELLOW [facility] Tfnirqb4187-15-23 21:08:00* Test Item Value Reference Range Interpretation Comments Urine Clarity (test code = 25871-8) CLEAR CLEAR [facility] Specific Jkbhzgk4952-79-62 21:08:00 * Test Item Value Reference Range Interpretation Comments Urine Specific [place] (test code = 5811-5) <=1.005 1.010-1.02 5 [facility] mM5133-50-54 21:08:00* Test Item Value Reference Range Interpretation Comments Urine pH (test code = 39179-2) 6 5-7 [facility] Leukocyte Iscvbxvm5333-06-33 21:08:00* Test Item Value Reference Range Interpretation Comments Urine Leukocyte Esterase (test code = 96486-6) NEGATIVE NEGATIV E [facility] Auqvuxe7702-24-62 21:08:00* Test Item Value Reference Range Interpretation Comments Urine Nitrite (test code = 78350-0) NEGATIVE NEGATIVE [facility] Nmucswa8559-39-14 21:08:00* Test Item Value Reference Range Interpretation Comments Urine Protein (test code = 22438-7) NEGATIVE NEGATIVE [facility] Glucose (UA)2019-01-16 21:08:00* Test Item Value Reference Range Interpretation Comments Urine Glucose (UA) (test code = 69508-0) 3+ NEGATIVE [facility] Nkfzwka8114-09-13 21:08:00* Test Item Value Reference Range Interpretation Comments Urine Ketones (test code = 95888-3) NEGATIVE NEGATIVE [facility] Ajlcdawggngn1384-77-20 21:08:00* Test Item Value Reference Range Interpretation Comments Urine Urobilinogen (test code = 20601-0) 0.2 0.2-1 [facility] Ikgydfqvf2619-39-78 21:08:00* Test Item Value Reference Range Interpretation Comments Urine Bilirubin (test code = 1977-8) NEGATIVE NEGATIVE [facility] Blfcc7812-83-42 21:08:00* Test Item Value Reference Range Interpretation Comments Urine Blood (test code = 05371-9) NEGATIVE NEGATIVE [facility] Dtyka0774-79-38 21:08:00* Test Item Value Reference Range Interpretation Comments Urine Color (test code = 5778-6) YELLOW YELLOW [facility] Fxtpqll0766-75-06 21:08:00* Test Item Value Reference Range Interpretation Comments Urine Clarity (test code = 33705-3) CLEAR CLEAR [facility] Specific Zphiolz8132-04-68 21:08:00 * Test Item Value Reference Range Interpretation Comments Urine Specific [place] (test code = 5811-5) <=1.005 1.010-1.02 5 [facility] oZ1567-86-07 21:08:00* Test Item Value Reference Range Interpretation Comments Urine pH (test code = 15511-5) 6 5-7 [facility] Leukocyte Rfhycrtj6079-25-19 21:08:00* Test Item Value Reference Range Interpretation Comments Urine Leukocyte Esterase (test code = 69722-0) NEGATIVE NEGATIV E [facility] Pnkwlfg7638-70-27 21:08:00* Test Item Value Reference Range Interpretation Comments Urine Nitrite (test code = 98545-6) NEGATIVE NEGATIVE [facility] Xdmkstq0840-45-75 21:08:00* Test Item Value Reference Range Interpretation Comments Urine Protein (test code = 81273-0) NEGATIVE NEGATIVE [facility] Glucose (UA)2019-01-16 21:08:00* Test Item Value Reference Range Interpretation Comments Urine Glucose (UA) (test code = 07420-8) 3+ NEGATIVE [facility] Frixevi3597-05-22 21:08:00* Test Item Value Reference Range Interpretation Comments Urine Ketones (test code = 00963-3) NEGATIVE NEGATIVE [facility] Udskxeogeaot6861-83-07 21:08:00* Test Item Value Reference Range Interpretation Comments Urine Urobilinogen (test code = 85168-4) 0.2 0.2-1 [facility] Ttbhuzpwz6732-70-61 21:08:00* Test Item Value Reference Range Interpretation Comments Urine Bilirubin (test code = 1977-8) NEGATIVE NEGATIVE [facility] Ygpxd8268-98-22 21:08:00* Test Item Value Reference Range Interpretation Comments Urine Blood (test code = 70735-4) NEGATIVE NEGATIVE [facility] Zmyaz8992-33-60 21:08:00* Test Item Value Reference Range Interpretation Comments Urine Color (test code = 5778-6) YELLOW YELLOW [facility] Gytxlat8447-25-67 21:08:00* Test Item Value Reference Range Interpretation Comments Urine Clarity (test code = 39195-4) CLEAR CLEAR [facility] Specific Ynemgaw6712-37-93 21:08:00 * Test Item Value Reference Range Interpretation Comments Urine Specific [place] (test code = 5811-5) <=1.005 1.010-1.02 5 [facility] kV3693-45-40 21:08:00* Test Item Value Reference Range Interpretation Comments Urine pH (test code = 02950-6) 6 5-7 [facility] Leukocyte Amuwweno1440-32-18 21:08:00* Test Item Value Reference Range Interpretation Comments Urine Leukocyte Esterase (test code = 19060-6) NEGATIVE NEGATIV E [facility] Jdlpzvc6379-36-21 21:08:00* Test Item Value Reference Range Interpretation Comments Urine Nitrite (test code = 28040-3) NEGATIVE NEGATIVE [facility] Aqxdqjx0634-06-81 21:08:00* Test Item Value Reference Range Interpretation Comments Urine Protein (test code = 75358-8) NEGATIVE NEGATIVE [facility] Glucose (UA)2019-01-16 21:08:00* Test Item Value Reference Range Interpretation Comments Urine Glucose (UA) (test code = 24165-0) 3+ NEGATIVE [facility] Ppsgusr5379-61-07 21:08:00* Test Item Value Reference Range Interpretation Comments Urine Ketones (test code = 34132-4) NEGATIVE NEGATIVE [facility] Btzczhfrojyq2049-02-87 21:08:00* Test Item Value Reference Range Interpretation Comments Urine Urobilinogen (test code = 54285-2) 0.2 0.2-1 [facility] Dfqgomfcv3553-37-08 21:08:00* Test Item Value Reference Range Interpretation Comments Urine Bilirubin (test code = 1977-8) NEGATIVE NEGATIVE [facility] Xbucq9580-80-34 21:08:00* Test Item Value Reference Range Interpretation Comments Urine Blood (test code = 23433-7) NEGATIVE NEGATIVE [facility]2019-01-16 20:38:00 [place] [address] Patient Name: KALYANI TALAVERA MR #: [id number] : 1955 Age/Sex: 63/F Req #: [id number] Adm Physician: Ordered by: JACQUES JANE MD Report #: [id number] Location: ER Room/Bed: Procedure: 66 DX/CHEST SINGLE (PORTABLE) Exam Date: 01/16/19 Ex am Time: 2019 REPORT STATUS: Signed A single frontal view of the chest. HISTORY: Shortness of breath COM PARISON: Chest radiograph January 11, 2019. DISCUSSION: Portable techn ique, limits sensitivity of the exam. Soft tissue attenuation partially limit s sensitivity of the exam. Tubes/Lines: None Lungs and pleura: Low l mary kate volumes result in bibasilar vascular crowding, accentuation of the pulmona ry interstitial markings, central pulmonary vasculature, and the cardiac silho uette. Allowing for these limitations, the findings are as follows: Increas ed interstitial markings and patchy confluent central predominant opacities. Left greater than right basilar atelectasis. Blunting of the left greater than right costophrenic angles. Heart and mediastinum: The cardiac silhoue tte is predominant obscured. The central pulmonary vasculature is prominent. Bones and soft tissues: Appear unremarkable, given this limited exam. IMPRESSION: Findings remain compatible with volume overload resulting in central pulmonary vascular congestion, moderate pulmonary edema, small (left greater than right) pleural effusions with adjacent atelectasis. Signed by: Dr. John Lowe D.O., M.M.M. on 01/16/2019 8:41 PM Dictated By: JOHN LOWE DO 40 Transcribed By: JIM on 01/16/192040 COPY TO: JACQUES JANE MD Bedside Kcyoaew5166-14-96 11:08:00* Test Item Value Reference Range Interpretation Comments Bedside Glucose (test code = 67522-8) 289 70-120 H Meter ID: [id number] Health Plainviewodium Level 2019-01-13 05:34:00* Test Item Value Reference Range Interpretation Comments Sodium Level (test code = 2951-2) 138 136-145 [facility] LancasterPotassium Qpchf2814-21-35 05:34:00* Test Item Value Reference Range Interpretation Comments Potassium Level (test code = 2823-3) 3.8 3.5-5.1 [facility] LancasterChloride Pehyw3750-87-05 05:34:00* Test Item Value Reference Range Interpretation Comments Chloride Level (test code = 2075-0) 105 98-107 [facility] LancasterCarbon Dioxide Zrdfn8642-34-15 05:34:00* Test Item Value Reference Range Interpretation Comments Carbon Dioxide Level (test code = 8-9) 25 22-29 [facility] LancasterAnion Gbu3961-38-35 05:34:00* Test Item Value Reference Range Interpretation Comments Anion Gap (test code = 88814-2) 11.8 8-16 [facility] LancasterBlood Urea Iizxtkma2305-87-91 05:34:00* Test Item Value Reference Range Interpretation Comments Blood Urea Nitrogen (test code = 3094-0) 16 7-26 [facility] LancasterCreatinine2019-06-23 05:34:00* Test Item Value Reference Range Interpretation Comments Creatinine (test code = 2160-0) 0.78 0.57-1.11 [facility] LancasterBUN/Creatinine Hnoui9749-30-49 05:34:00* Test Item Value Reference Range Interpretation Comments BUN/Creatinine Ratio (test code = 3097-3) 21 6- [facility] LancasterEstimat Glomerular Filtration Rate 2019-01-13 05:34:00* Test Item Value Reference Range Interpretation Comments Estimat Glomerular Filtration Rate (test code = 764924860) > 60 >60 Ranges were taken from the National Kidney Disease Education Program and the [facility] literature.Reference ranges:60 or greater: Lvqijq86-76 ( for 3 consecutive months): Chronic kidney disease 15 or less: Kidney failureCrescent Medical Center LancasterGlucose Ualez1013-05-70 05:34:00* Test Item Value Reference Range Interpretation Comments Glucose Level (test code = JPM6202) 151 74-118 H [facility] LancasterCalcium Gotgg9923-68-52 05:34:00* Test Item Value Reference Range Interpretation Comments Calcium Level (test code = 27739-0) 8.5 8.4-10.2 [facility] LancasterTotal Pyhynrdvz3443-90-12 05:34:00* Test Item Value Reference Range Interpretation Comments Total Bilirubin (test code = 1975-2) 0.3 0.2-1.2 [facility] LancasterAspartate Amino Transf (AST/SGOT) 2019-01-13 05:34:00* Test Item Value Reference Range Interpretation Comments Aspartate Amino Transf (AST/SGOT) (test code = Aspartate Amino Transf (AST/SGOT)) 12 5-34 [facility] LancasterAlanine Aminotransferase (ALT/SGPT) 2019-01-13 05:34:00* Test Item Value Reference Range Interpretation Comments Alanine Aminotransferase (ALT/SGPT) (test code = 1742-6) 16 0-55 [facility] LancasterTotal Ryjyoqk6873-82-20 05:34:00* Test Item Value Reference Range Interpretation Comments Total Protein (test code = 2885-2) 5.5 6.5-8.1 L [facility] LancasterAlbumin2019-06-23 05:34:00* Test Item Value Reference Range Interpretation Comments Albumin (test code = 1751-7) 3.0 3.5-5.0 L [facility] LancasterGlobulin2019-06-23 05:34:00* Test Item Value Reference Range Interpretation Comments Globulin (test code = 84916-7) 2.5 2.3-3.5 [facility] LancasterAlbumin/Globulin Ebyer7240-14-51 05:34:00 * Test Item Value Reference Range Interpretation Comments Albumin/Globulin Ratio (test code = 1759-0) 1.2 0.8-2.0 [facility] LancasterAlkaline Onndcqemvzt5538-21-84 05:34:00* Test Item Value Reference Range Interpretation Comments Alkaline Phosphatase (test code = 6768-6) 69 40-150 [facility] LancasterWhite Blood Xmpzi0521-46-49 05:17:00* Test Item Value Reference Range Interpretation Comments White Blood Count (test code = 6690-2) 5.11 4.8-10.8 [facility] LancasterRed Blood Slqvk2789-10-96 05:17:00* Test Item Value Reference Range Interpretation Comments Red Blood Count (test code = 789-8) 4.52 3.6-5.1 [facility] LancasterHemoglobin2019-06-23 05:17:00* Test Item Value Reference Range Interpretation Comments Hemoglobin (test code = 75756-0) 11.2 12.0-16.0 L [facility] LancasterHematocrit2019-06-23 05:17:00* Test Item Value Reference Range Interpretation Comments Hematocrit (test code = 4544-3) 36.5 34.2-44.1 [facility] LancasterMean Corpuscular Zfmnxk2490-45-02 05:17:00* Test Item Value Reference Range Interpretation Comments Mean Corpuscular Volume (test code = 787-2) 80.8 81-99 L [facility] LancasterMean Corpuscular Xbjefwqhak8994-48-16 05:17:00* Test Item Value Reference Range Interpretation Comments Mean Corpuscular Hemoglobin (test code = 785-6) 24.8 28-32 L [facility] LancasterMean Corpuscular Hemoglobin Concent 2019-01-13 05:17:00* Test Item Value Reference Range Interpretation Comments Mean Corpuscular Hemoglobin Concent (test code = 786-4) 30.7 31-35 L [facility] LancasterRed Cell Distribution Vbunn4986-93-90 05:17:00* Test Item Value Reference Range Interpretation Comments Red Cell Distribution Width (test code = 91527-8) 14.9 11.7 -14.4 H [facility] LancasterPlatelet Lbwpq2078-17-55 05:17:00* Test Item Value Reference Range Interpretation Comments Platelet Count (test code = 777-3) 149 140-360 [facility] LancasterNeutrophils (%) (Auto)2019-01-13 05:17:00 * Test Item Value Reference Range Interpretation Comments Neutrophils (%) (Auto) (test code = 41078-2) 67.6 38.7-80.0 [facility] LancasterLymphocytes (%) (Auto)2019-01-13 05:17:00 * Test Item Value Reference Range Interpretation Comments Lymphocytes (%) (Auto) (test code = 736-9) 20.4 18.0-39.1 [facility] LancasterMonocytes (%) (Auto)2019-01-13 05:17:00* Test Item Value Reference Range Interpretation Comments Monocytes (%) (Auto) (test code = 5905-5) 5.9 4.4-11.3 [facility] LancasterEosinophils (%) (Auto)2019-01-13 05:17:00 * Test Item Value Reference Range Interpretation Comments Eosinophils (%) (Auto) (test code = 713-8) 4.1 0.0-6.0 [facility] LancasterBasophils (%) (Auto)2019-01-13 05:17:00* Test Item Value Reference Range Interpretation Comments Basophils (%) (Auto) (test code = 706-2) 1.2 0.0-1.0 H [facility] LancasterIM GRANULOCYTES %2019-01-13 05:17:00* Test Item Value Reference Range Interpretation Comments IM GRANULOCYTES % (test code = IM GRANULOCYTES %) 0.8 0.0- 1.0 [facility] LancasterNeutrophils # (Auto)2019-01-13 05:17:00* Test Item Value Reference Range Interpretation Comments Neutrophils # (Auto) (test code = 751-8) 3.5 2.1-6.9 [facility] LancasterLymphocytes # (Auto)2019-01-13 05:17:00* Test Item Value Reference Range Interpretation Comments Lymphocytes # (Auto) (test code = 91975-6) 1.0 1.0-3.2 [facility] LancasterMonocytes # (Auto)2019-01-13 05:17:00* Test Item Value Reference Range Interpretation Comments Monocytes # (Auto) (test code = 742-7) 0.3 0.2-0.8 [facility] LancasterEosinophils # (Auto)2019-01-13 05:17:00* Test Item Value Reference Range Interpretation Comments Eosinophils # (Auto) (test code = 711-2) 0.2 0.0-0.4 [facility] LancasterBasophils # (Auto)2019-01-13 05:17:00* Test Item Value Reference Range Interpretation Comments Basophils # (Auto) (test code = 704-7) 0.1 0.0-0.1 [facility] LancasterAbsolute Immature Granulocyte (auto 2019-01-13 05:17:00* Test Item Value Reference Range Interpretation Comments Absolute Immature Granulocyte (auto (joseph t code = Absolute Immature Granulocyte (auto) 0.04 0-0.1 [facility] LancasterHemoglobin A1c Spwdiye3332-59-45 13:04:00 * Test Item Value Reference Range Interpretation Comments Hemoglobin A1c Percent (test code = Hemoglobin A1c Percent) 11.6 4.0-7.0 H [facility] LancasterUrine IWA3816-85-34 18:54:00* Test Item Value Reference Range Interpretation Comments Urine WBC (test code = 5821-4) NONE 0-5 [facility] LancasterUrine ZKZ9688-79-70 18:54:00* Test Item Value Reference Range Interpretation Comments Urine RBC (test code = 79861-0) NONE 0-5 [facility] LancasterUrine Xqkkxbnx9603-52-86 18:54:00* Test Item Value Reference Range Interpretation Comments Urine Bacteria (test code = 44142-3) FEW NONE [facility] LancasterUrine Epithelial Hlrfa4175-76-77 18:54:00 * Test Item Value Reference Range Interpretation Comments Urine Epithelial Cells (test code = 00238-5) FEW NONE [facility] LancasterCreatine Kinase ZV0023-15-18 18:44:00* Test Item Value Reference Range Interpretation Comments Creatine Kinase MB (test code = 88161-2) 1.00 0-5.0 [facility] LancasterTroponin S5950-72-45 18:44:00* Test Item Value Reference Range Interpretation Comments Troponin I (test code = QCG7600) 0.002 0-0.300 [facility] LancasterCHEST SINGLE (PORTABLE)2019-01-11 18:42:00 [facility] [address] [place] [address] Patient Name: KALYANI TALAVERA MR #: [id number] : 1955 Age/Sex: 63/F Req #: [id number] Adm Physician: Ordered by: FLO TOLBERT MD Report #: [id number] Location: ER Room/Bed: Procedure: [id number] DX/C HEST SINGLE (PORTABLE) Exam Date: Exam Time: REPORT STATUS: Signed EXAMINATION: C HEST SINGLE (PORTABLE) COMPARISON: Chest x-ray 01/10/2019 INDICATIO N: Dizziness DIZZY DISCUSSION: Frontal view of the chest obtained a t 1806 hours. HEART AND MEDIASTINUM: The heart is mildly enlarged, stable. 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 LUNGS: Pulmonary vasculature is mildly prominent. No infiltrates PLEURA: No pleural effusion or pneumothorax. BONES AND SOFT TISSUES: No focal osse ous lesion. The soft tissues are normal. IMPRESSION: Stable cardiomeg tammy. Mild vascular congestion. No acute pulmonary process. Signed by: Dr. Calvin Cole MD on 01/11/2019 6:43 PM Dictated By: NOEL COLE MD 42 Transcribed By: JIM on 01/11/191842 COPY TO: FLO TOLBERT MD Creatine Toeotn3587-91-43 18:39:00* Test Item Value Reference Range Interpretation Comments Creatine Kinase (test code = 2157-6) 29 29-168 [facility] LancasterUrine Dasiv3057-13-35 18:38:00* Test Item Value Reference Range Interpretation Comments Urine Color (test code = 5778-6) YELLOW YELLOW [facility] LancasterUrine Ftxpbmv7741-43-73 18:38:00* Test Item Value Reference Range Interpretation Comments Urine Clarity (test code = 05593-8) CLEAR CLEAR [facility] LancasterUrine Specific Wwdpreh5265-46-56 18:38:00 * Test Item Value Reference Range Interpretation Comments Urine Specific [place] (test code = 5811-5) 1.010 1.010-1.02 5 [facility] LancasterUrine aI6292-44-44 18:38:00* Test Item Value Reference Range Interpretation Comments Urine pH (test code = 95553-8) 6 5-7 [facility] LancasterUrine Leukocyte Evxefdma7695-77-54 18:38:00* Test Item Value Reference Range Interpretation Comments Urine Leukocyte Esterase (test code = 21998-3) NEGATIVE NEGATIV E [facility] Cswsnat2421-70-67 18:38:00* Test Item Value Reference Range Interpretation Comments Urine Nitrite (test code = 62320-0) NEGATIVE NEGATIVE [facility] LancasterUrine Szqbmft9666-38-68 18:38:00* Test Item Value Reference Range Interpretation Comments Urine Protein (test code = 28776-8) NEGATIVE NEGATIVE [facility] Glucose (UA)2019-01-11 18:38:00* Test Item Value Reference Range Interpretation Comments Urine Glucose (UA) (test code = 32619-2) 3+ NEGATIVE [facility] LancasterUrine Kakpfnd0941-16-70 18:38:00* Test Item Value Reference Range Interpretation Comments Urine Ketones (test code = 05516-7) NEGATIVE NEGATIVE [facility] Ddijpucbrfbt0112-37-12 18:38:00* Test Item Value Reference Range Interpretation Comments Urine Urobilinogen (test code = 82376-2) 0.2 0.2-1 [facility] LancasterUrine Mastlnylh3210-45-50 18:38:00* Test Item Value Reference Range Interpretation Comments Urine Bilirubin (test code = 1977-8) NEGATIVE NEGATIVE [facility] LancasterUrine Lsdai5443-95-70 18:38:00* Test Item Value Reference Range Interpretation Comments Urine Blood (test code = 60996-3) NEGATIVE NEGATIVE [facility] LancasterProthrombin Arfi4707-20-76 18:32:00* Test Item Value Reference Range Interpretation Comments Prothrombin Time (test code = 5902-2) 12.7 11.9-14.5 [facility] LancasterProthromb Time International Ratio 2019-01-11 18:32:00* Test Item Value Reference Range Interpretation Comments Prothromb Time International Ratio (test code = 6301-6) 0.91 Oral Anticoagulant Therapy INR Values:1. Low Intensity Therapy 1.5 - 2.02 . Moderate Intensity Therapy 2.0 - 3.03. High Intensity Therapy(1) 2.5 - 3. 54. High Intensity Therapy(2) 3.0 - 4.05. Panic Value INR > 5.0 [facility] LancasterActivated Partial Thromboplast Time 2019-01-11 18:32:00* Test Item Value Reference Range Interpretation Comments Activated Partial Thromboplast Time (test code = 26651-8) 24.1 23.8-35.5 [facility] LancasterProthrombin Lunw2204-76-26 18:32:00* Test Item Value Reference Range Interpretation Comments Prothrombin Time (test code = 5902-2) 12.7 11.9-14.5 [facility] LancasterProthromb Time International Ratio 2019-01-11 18:32:00* Test Item Value Reference Range Interpretation Comments Prothromb Time International Ratio (test code = 6301-6) 0.91 Oral Anticoagulant Therapy INR Values:1. Low Intensity Therapy 1.5 - 2.02 . Moderate Intensity Therapy 2.0 - 3.03. High Intensity Therapy(1) 2.5 - 3. 54. High Intensity Therapy(2) 3.0 - 4.05. Panic Value INR > 5.0 [facility] LancasterActivated Partial Thromboplast Time 2019-01-11 18:32:00* Test Item Value Reference Range Interpretation Comments Activated Partial Thromboplast Time (test code = 46426-3) 24.1 23.8-35.5 [facility] LancasterProthrombin Vktb3780-96-75 18:32:00* Test Item Value Reference Range Interpretation Comments Prothrombin Time (test code = 5902-2) 12.7 11.9-14.5 [facility] LancasterProthromb Time International Ratio 2019-01-11 18:32:00* Test Item Value Reference Range Interpretation Comments Prothromb Time International Ratio (test code = 6301-6) 0.91 Oral Anticoagulant Therapy INR Values:1. Low Intensity Therapy 1.5 - 2.02 . Moderate Intensity Therapy 2.0 - 3.03. High Intensity Therapy(1) 2.5 - 3. 54. High Intensity Therapy(2) 3.0 - 4.05. Panic Value INR > 5.0 [facility] LancasterActivated Partial Thromboplast Time 2019-01-11 18:32:00* Test Item Value Reference Range Interpretation Comments Activated Partial Thromboplast Time (test code = 88118-1) 24.1 23.8-35.5 [facility] LancasterProthrombin Ogqs9465-01-18 18:32:00* Test Item Value Reference Range Interpretation Comments Prothrombin Time (test code = 5902-2) 12.7 11.9-14.5 [facility] LancasterProthromb Time International Ratio 2019-01-11 18:32:00* Test Item Value Reference Range Interpretation Comments Prothromb Time International Ratio (test code = 6301-6) 0.91 Oral Anticoagulant Therapy INR Values:1. Low Intensity Therapy 1.5 - 2.02 . Moderate Intensity Therapy 2.0 - 3.03. High Intensity Therapy(1) 2.5 - 3. 54. High Intensity Therapy(2) 3.0 - 4.05. Panic Value INR > 5.0 [facility] LancasterActivated Partial Thromboplast Time 2019-01-11 18:32:00* Test Item Value Reference Range Interpretation Comments Activated Partial Thromboplast Time (test code = 22875-5) 24.1 23.8-35.5 [facility] LancasterProthrombin Zmjn6729-00-82 18:32:00* Test Item Value Reference Range Interpretation Comments Prothrombin Time (test code = 5902-2) 12.7 11.9-14.5 [facility] LancasterProthromb Time International Ratio 2019-01-11 18:32:00* Test Item Value Reference Range Interpretation Comments Prothromb Time International Ratio (test code = 6301-6) 0.91 Oral Anticoagulant Therapy INR Values:1. Low Intensity Therapy 1.5 - 2.02 . Moderate Intensity Therapy 2.0 - 3.03. High Intensity Therapy(1) 2.5 - 3. 54. High Intensity Therapy(2) 3.0 - 4.05. Panic Value INR > 5.0 [facility] LancasterActivated Partial Thromboplast Time 2019-01-11 18:32:00* Test Item Value Reference Range Interpretation Comments Activated Partial Thromboplast Time (test code = 74000-9) 24.1 23.8-35.5 [facility] LancasterProthrombin Doqj0948-49-54 18:32:00* Test Item Value Reference Range Interpretation Comments Prothrombin Time (test code = 5902-2) 12.7 11.9-14.5 [facility] LancasterProthromb Time International Ratio 2019-01-11 18:32:00* Test Item Value Reference Range Interpretation Comments Prothromb Time International Ratio (test code = 6301-6) 0.91 Oral Anticoagulant Therapy INR Values:1. Low Intensity Therapy 1.5 - 2.02 . Moderate Intensity Therapy 2.0 - 3.03. High Intensity Therapy(1) 2.5 - 3. 54. High Intensity Therapy(2) 3.0 - 4.05. Panic Value INR > 5.0 [facility] LancasterActivated Partial Thromboplast Time 2019-01-11 18:32:00* Test Item Value Reference Range Interpretation Comments Activated Partial Thromboplast Time (test code = 65214-3) 24.1 23.8-35.5 [facility] LancasterProthrombin Blau0125-92-85 18:32:00* Test Item Value Reference Range Interpretation Comments Prothrombin Time (test code = 5902-2) 12.7 11.9-14.5 [facility] LancasterProthromb Time International Ratio 2019-01-11 18:32:00* Test Item Value Reference Range Interpretation Comments Prothromb Time International Ratio (test code = 6301-6) 0.91 Oral Anticoagulant Therapy INR Values:1. Low Intensity Therapy 1.5 - 2.02 . Moderate Intensity Therapy 2.0 - 3.03. High Intensity Therapy(1) 2.5 - 3. 54. High Intensity Therapy(2) 3.0 - 4.05. Panic Value INR > 5.0 [facility] LancasterActivated Partial Thromboplast Time 2019-01-11 18:32:00* Test Item Value Reference Range Interpretation Comments Activated Partial Thromboplast Time (test code = 79816-6) 24.1 23.8-35.5 [facility] LancasterCHES 2 JTKBJ6210-37-34 17:48:00 [facility] [address] [address] Patient Name: KALYANI TALAVERA MR #: [id number] : 1955 Age/Sex: 63/F Req #: [id number] Adm Physician: Ordered by: BOYD NICHOLS ASSISTANT INVENTORY MANAGER Report #: [id number] Location: ER Room/Bed: Procedure: [id number] D X/CHEST 2 VIEWS Exam Date: 01/10/19 Exam Time: 1723 REPORT STATUS: Signed EXAMINATIO N: CHEST 2 VIEWS INDICATION: Hyperglycemia crackles bases [id number] [id number] [id number] COMPARISON: Chest x-ray 07/01/2018 FINDINGS: PA and lateral views TUBES and LINES: None. LUNGS: Low lung volumes. Mild b ronchial wall thickening. Stable eventration of the right diaphragm. Pulmonary veins are prominent but stable. No consolidation or interstitial edema. PLEURA: No pleural effusion or pneumothorax. HEART AND MEDIASTINUM: The cardiomediastinal silhouette is unremarkable.. BONES AND SOFT TISSUES: Th e bones are diffusely demineralized. No focal osseous lesions. Soft tissues are unremarkable. UPPER ABDOMEN: No free air under the diaphragm. IMP RESSION: Stable pulmonary venous hypertension. Bronchial wall thickening s uggestive of chronic bronchitis. No infiltrates. Stable eventration of the rig ht diaphragm. Signed by: Dr. Noel Cole MD on 01/10/2019 5:50 PM Dictated By: NOEL COLE MD 49 Transcribed By: JIM on 01/10/191749 COPY T O: BOYD NICHOLS ASSISTANT INVENTORY MANAGER B-Type Natriuretic Pccfmtd7486-64-20 17:30:00* Test Item Value Reference Range Interpretation Comments B-Type Natriuretic Peptide (test code = 84513-9) 24.4 0-100 [facility] LancasterB-Type Natriuretic Gcqpazm5147-49-33 17:30:00* Test Item Value Reference Range Interpretation Comments B-Type Natriuretic Peptide (test code = 03436-6) 24.4 0-100 [facility] LancasterUrine IUK9927-00-54 17:03:00* Test Item Value Reference Range Interpretation Comments Urine WBC (test code = 5821-4) 0-5 0-5 [facility] LancasterUrine [id number] 17:03:00* Test Item Value Reference Range Interpretation Comments Urine RBC (test code = 07104-8) NONE 0-5 [facility] LancasterUrine Vtrithju8398-88-96 17:03:00* Test Item Value Reference Range Interpretation Comments Urine Bacteria (test code = 20890-2) MODERATE NONE H [facility] LancasterUrine Epithelial Attpa0028-48-17 17:03:00 * Test Item Value Reference Range Interpretation Comments Urine Epithelial Cells (test code = 53484-6) MANY NONE [facility] LancasterUrine Jbshy8814-82-78 17:00:00* Test Item Value Reference Range Interpretation Comments Urine Color (test code = 5778-6) YELLOW YELLOW [facility] LancasterUrine Snwhycd4923-82-67 17:00:00* Test Item Value Reference Range Interpretation Comments Urine Clarity (test code = 95971-0) CLEAR CLEAR [facility] LancasterUrine Specific Sflehad6727-28-02 17:00:00 * Test Item Value Reference Range Interpretation Comments Urine Specific [place] (test code = 5811-5) 1.020 1.010-1.02 5 [facility] LancasterUrine jB2436-50-79 17:00:00* Test Item Value Reference Range Interpretation Comments Urine pH (test code = 18770-9) 6 5-7 [facility] LancasterUrine Leukocyte Gsbukoas3295-40-69 17:00:00* Test Item Value Reference Range Interpretation Comments Urine Leukocyte Esterase (test code = 37537-3) NEGATIVE NEGATIV E [facility] LancasterUrine Ugagrsn6666-96-93 17:00:00* Test Item Value Reference Range Interpretation Comments Urine Nitrite (test code = 36712-4) NEGATIVE NEGATIVE [facility] LancasterUrine Nklxdnl2233-59-19 17:00:00* Test Item Value Reference Range Interpretation Comments Urine Protein (test code = 05864-6) NEGATIVE NEGATIVE [facility] LancasterUrine Glucose (UA)2019-01-10 17:00:00* Test Item Value Reference Range Interpretation Comments Urine Glucose (UA) (test code = 09676-5) 3+ NEGATIVE [facility] LancasterUrine Vdqkfqu0803-00-88 17:00:00* Test Item Value Reference Range Interpretation Comments Urine Ketones (test code = 28105-8) NEGATIVE NEGATIVE [facility] Rvkxtvzoakqc3694-97-58 17:00:00* Test Item Value Reference Range Interpretation Comments Urine Urobilinogen (test code = 37566-9) 0.2 0.2-1 [facility] LancasterUrine Mthdidmwt9499-84-96 17:00:00* Test Item Value Reference Range Interpretation Comments Urine Bilirubin (test code = 1977-8) NEGATIVE NEGATIVE [facility] LancasterUrine Vedik2600-29-33 17:00:00* Test Item Value Reference Range Interpretation Comments Urine Blood (test code = 06597-8) NEGATIVE NEGATIVE [facility] LancasterCreatine Kinase MQ1125-23-18 16:38:00* Test Item Value Reference Range Interpretation Comments Creatine Kinase MB (test code = 84687-9) 1.60 0-5.0 [facility] LancasterTroponin Z9943-06-76 16:38:00* Test Item Value Reference Range Interpretation Comments Troponin I (test code = XNQ1321) 0.007 0-0.300 [facility]viewodium Bevuc2914-45-70 16:33:00* Test Item Value Reference Range Interpretation Comments Sodium Level (test code = 2951-2) 135 136-145 L [facility] LancasterPotassium Yyqlh0167-13-43 16:33:00* Test Item Value Reference Range Interpretation Comments Potassium Level (test code = 2823-3) 4.9 3.5-5.1 [facility] LancasterChloride [id number] 16:33:00* Test Item Value Reference Range Interpretation Comments Chloride Level (test code = 2075-0) 102 98-107 [facility] LancasterCarbon Dioxide [id number] 16:33:00* Test Item Value Reference Range Interpretation Comments Carbon Dioxide Level (test code = 2028-9) 21 22-29 L [facility] LancasterAnion [id number] 16:33:00* Test Item Value Reference Range Interpretation Comments Anion Gap (test code = 19595-1) 16.9 8-16 H [facility] LancasterBlood Urea [id number] 16:33:00* Test Item Value Reference Range Interpretation Comments Blood Urea Nitrogen (test code = 3094-0) 31 7-26 H [facility] LancasterCreatinine2019-06-20 16:33:00* Test Item Value Reference Range Interpretation Comments Creatinine (test code = 2160-0) 1.16 0.57-1.11 H [facility] LancasterBUN/Creatinine Taojv9060-79-37 16:33:00* Test Item Value Reference Range Interpretation Comments BUN/Creatinine Ratio (test code = 3097-3) 27 6-25 H [facility] LancasterEstimat Glomerular Filtration Rate 2019-01-10 16:33:00* Test Item Value Reference Range Interpretation Comments Estimat Glomerular Filtration Rate (test code = 205042748) 47 >60 L Ranges were taken from the National Kidney Disease Education Program and the [facility] literature.Reference ranges:60 or greater: Qcbkkp64-86 ( for 3 consecutive months): Chronic kidney disease 15 or less: Kidney failureCrescent Medical Center LancasterGlucose Cwdce3115-82-02 16:33:00* Test Item Value Reference Range Interpretation Comments Glucose Level (test code = CWV0980) 326 74-118 H [facility] LancasterCalcium Joert4070-54-00 16:33:00* Test Item Value Reference Range Interpretation Comments Calcium Level (test code = 17601-9) 9.7 8.4-10.2 [facility] LancasterTotal Tymbtzcoj4995-87-49 16:33:00* Test Item Value Reference Range Interpretation Comments Total Bilirubin (test code = 1975-2) 0.3 0.2-1.2 [facility] LancasterAspartate Amino Transf (AST/SGOT) 2019-01-10 16:33:00* Test Item Value Reference Range Interpretation Comments Aspartate Amino Transf (AST/SGOT) (test code = Aspartate Amino Transf (AST/SGOT)) 19 5-34 [facility] LancasterAlanine Aminotransferase (ALT/SGPT) 2019-01-10 16:33:00* Test Item Value Reference Range Interpretation Comments Alanine Aminotransferase (ALT/SGPT) (test code = 1742-6) 22 0-55 [facility] LancasterTotal Fzhjxfh8082-59-47 16:33:00* Test Item Value Reference Range Interpretation Comments Total Protein (test code = 2885-2) 7.1 6.5-8.1 [facility] LancasterAlbumin2019-06-20 16:33:00* Test Item Value Reference Range Interpretation Comments Albumin (test code = 1751-7) 3.5 3.5-5.0 [facility] LancasterGlobulin2019-06-20 16:33:00* Test Item Value Reference Range Interpretation Comments Globulin (test code = 63030-9) 3.6 2.3-3.5 H [facility] LancasterAlbumin/Globulin Bmtew7228-02-54 16:33:00 * Test Item Value Reference Range Interpretation Comments Albumin/Globulin Ratio (test code = 1759-0) 1.0 0.8-2.0 [facility] LancasterAlkaline Lxfhvkrmnms8815-68-42 16:33:00* Test Item Value Reference Range Interpretation Comments Alkaline Phosphatase (test code = 6768-6) 81 40-150 [facility] LancasterCreatine Ygjacl4676-23-14 16:33:00* Test Item Value Reference Range Interpretation Comments Creatine Kinase (test code = 2157-6) 35 29-168 [facility] LancasterWhite Blood Bbbtz5321-08-97 16:22:00* Test Item Value Reference Range Interpretation Comments White Blood Count (test code = 6690-2) 5.88 4.8-10.8 [facility] LancasterRed Blood Dqrkx0631-54-36 16:22:00* Test Item Value Reference Range Interpretation Comments Red Blood Count (test code = 789-8) 5.19 3.6-5.1 H [facility] LancasterHemoglobin2019-06-20 16:22:00* Test Item Value Reference Range Interpretation Comments Hemoglobin (test code = 98930-8) 13.0 12.0-16.0 [facility] LancasterHematocrit2019-06-20 16:22:00* Test Item Value Reference Range Interpretation Comments Hematocrit (test code = 4544-3) 42.1 34.2-44.1 [facility] LancasterMean Corpuscular Rokztr1577-62-58 16:22:00* Test Item Value Reference Range Interpretation Comments Mean Corpuscular Volume (test code = 787-2) 81.1 81-99 [facility] LancasterMean Corpuscular Mcdrhxdsjr7604-70-15 16:22:00* Test Item Value Reference Range Interpretation Comments Mean Corpuscular Hemoglobin (test code = 785-6) 25.0 28-32 L [facility] LancasterMean Corpuscular Hemoglobin Concent 2019-01-10 16:22:00* Test Item Value Reference Range Interpretation Comments Mean Corpuscular Hemoglobin Concent (test code = 786-4) 30.9 31-35 L [facility] LancasterRed Cell Distribution Cuevl9912-85-79 16:22:00* Test Item Value Reference Range Interpretation Comments Red Cell Distribution Width (test code = 43641-2) 15.0 11.7 -14.4 H [facility] LancasterPlatelet Nvuzp5884-04-14 16:22:00* Test Item Value Reference Range Interpretation Comments Platelet Count (test code = 777-3) 151 140-360 [facility] LancasterNeutrophils (%) (Auto)2019-01-10 16:22:00 * Test Item Value Reference Range Interpretation Comments Neutrophils (%) (Auto) (test code = 19012-2) 66.5 38.7-80.0 [facility] LancasterLymphocytes (%) (Auto)2019-01-10 16:22:00 * Test Item Value Reference Range Interpretation Comments Lymphocytes (%) (Auto) (test code = 736-9) 24.0 18.0-39.1 [facility] LancasterMonocytes (%) (Auto)2019-01-10 16:22:00* Test Item Value Reference Range Interpretation Comments Monocytes (%) (Auto) (test code = 5905-5) 5.1 4.4-11.3 [facility] LancasterEosinophils (%) (Auto)2019-01-10 16:22:00 * Test Item Value Reference Range Interpretation Comments Eosinophils (%) (Auto) (test code = 713-8) 2.7 0.0-6.0 [facility] LancasterBasophils (%) (Auto)2019-01-10 16:22:00* Test Item Value Reference Range Interpretation Comments Basophils (%) (Auto) (test code = 706-2) 1.0 0.0-1.0 [facility] LancasterIM GRANULOCYTES %2019-01-10 16:22:00* Test Item Value Reference Range Interpretation Comments IM GRANULOCYTES % (test code = IM GRANULOCYTES %) 0.7 0.0- 1.0 [facility] LancasterNeutrophils # (Auto)2019-01-10 16:22:00* Test Item Value Reference Range Interpretation Comments Neutrophils # (Auto) (test code = 751-8) 3.9 2.1-6.9 [facility] LancasterLymphocytes # (Auto)2019-01-10 16:22:00* Test Item Value Reference Range Interpretation Comments Lymphocytes # (Auto) (test code = 51639-7) 1.4 1.0-3.2 [facility] LancasterMonocytes # (Auto)2019-01-10 16:22:00* Test Item Value Reference Range Interpretation Comments Monocytes # (Auto) (test code = 742-7) 0.3 0.2-0.8 [facility] LancasterEosinophils # (Auto)2019-01-10 16:22:00* Test Item Value Reference Range Interpretation Comments Eosinophils # (Auto) (test code = 711-2) 0.2 0.0-0.4 [facility] LancasterBasophils # (Auto)2019-01-10 16:22:00* Test Item Value Reference Range Interpretation Comments Basophils # (Auto) (test code = 704-7) 0.1 0.0-0.1 [facility] LancasterAbsolute Immature Granulocyte (auto 2019-01-10 16:22:00* Test Item Value Reference Range Interpretation Comments Absolute Immature Granulocyte (auto (joseph t code = Absolute Immature Granulocyte (auto) 0.04 0-0.1 [facility] LancasterGLUBED2019-06-15 03:55:00* Test Item Value Reference Range Interpretation Comments GLUBED (test code = GLUBED) 370 mg/dL 74-106 H Performed by certified glue spreading machine operator at [facility] [id number] 03:55:00* Test Item Value Reference Range Interpretation Comments GLUBED (test code = GLUBED) 358 mg/dL 74-106 H Performed by certified glue spreading machine operator at [facility] BASIC METABOLIC [id number] 03:09:00* Test Item Value Reference Range Interpretation Comments SODIUM (test code = NA) 136 mmol/L 136-145 N POTASSIUM (test code = K) 4.3 mmol/L 3.5-5.1 N CHLORIDE (test code = CL) 105.0 mmol/L 98-107 N CARBON DIOXIDE (test code = CO2) 23.0 mmol/L 21-32 N ANION GAP (test code = GAP) 12.3 10-20 N GLUCOSE (test code = GLU) 405 mg/dL 74-106 H BLOOD UREA NITROGEN (test code = BUN) 26 mg/dL 7-18 H GLOMERULAR FILTRATION RATE (test code = GFR) 46 mL/min >=60 Estimated GFR by using Modified MDRD formula.Chronic kidney disease is defined as either kidney damageor GFR <60 mL/min/1.73 m2 for >3 months. CREATININE (test code = CREAT) 1.20 mg/dL 0.55-1.02 H Note change in reference range due to change in reagent. BUN/CREATININE RATIO (test code = BUN/CREA) 21.7 10-20 H CALCIUM (test code = CA) 8.1 mg/dL 8.5-10.1 L HEPATIC FUNCTION [id number] 03:09:00* Test Item Value Reference Range Interpretation Comments TOTAL PROTEIN (test code = PROT) 6.4 gram/dL 6.4-8.2 N ALBUMIN (test code = ALB) 2.8 g/dL 3.4-5.0 L GLOBULIN (test code = GLOB) 3.6 gram/dL 2.7-4.2 N ALBUMIN/GLOBULIN RATIO (test code = A/G) 0.8 0.75-1.50 N BILIRUBIN TOTAL (test code = BILT) 0.30 mg/dL 0.0-1.0 N BILIRUBIN DIRECT (test code = BILD) < 0.05 mg/dL 0.0-0.20 N SGOT/AST (test code = AST) 7 IUnit/L 15-37 L SGPT/ALT (test code = ALT) 21 IUnit/L 12-78 N ALKALINE PHOSPHATASE TOTAL (test code = ALKP) 89 IUnit/L 45-117 N Note change in reference range due to change in reagent. [id number] 03:09:00* Test Item Value Reference Range Interpretation Comments TROPONIN-I (test code = TROPI) <0.015 ng/mL 0-0.045 N BASIC METABOLIC [id number] 03:01:00* Test Item Value Reference Range Interpretation Comments SODIUM (test code = NA) 136 mmol/L 136-145 N POTASSIUM (test code = K) 4.3 mmol/L 3.5-5.1 N CHLORIDE (test code = CL) 105.0 mmol/L 98-107 N CARBON DIOXIDE (test code = CO2) mmol/L 21-32 ANION GAP (test code = GAP) 10-20 GLUCOSE (test code = GLU) mg/dL 74-106 BLOOD UREA NITROGEN (test code = BUN) mg/dL 7-18 GLOMERULAR FILTRATION RATE (test code = GFR) mL/min >=60 CREATININE (test code = CREAT) mg/dL 0.55-1.02 BUN/CREATININE RATIO (test code = BUN/CREA) 10-20 CALCIUM (test code = CA) mg/dL 8.5-10.1 HEPATIC FUNCTION [id number] 03:01:00* Test Item Value Reference Range Interpretation Comments TOTAL PROTEIN (test code = PROT) gram/dL 6.4-8.2 ALBUMIN (test code = ALB) g/dL 3.4-5.0 GLOBULIN (test code = GLOB) gram/dL 2.7-4.2 ALBUMIN/GLOBULIN RATIO (test code = A/G) 0.75-1.50 BILIRUBIN TOTAL (test code = BILT) mg/dL 0.0-1.0 BILIRUBIN DIRECT (test code = BILD) mg/dL 0.0-0.20 SGOT/AST (test code = AST) IUnit/L 15-37 SGPT/ALT (test code = ALT) IUnit/L 12-78 ALKALINE PHOSPHATASE TOTAL (test code = ALKP) IUnit/L 45-117 [id number] 03:01:00* Test Item Value Reference Range Interpretation Comments TROPONIN-I (test code = TROPI) ng/mL 0-0.045 CBC W/AUTO [id number] 02:56:00* Test Item Value Reference Range Interpretation Comments WHITE BLOOD CELL (test code = WBC) 4.8 K/mm3 4.5-12.5 N RED BLOOD CELL (test code = RBC) 4.89 mill/mm3 3.7-5.2 N HEMOGLOBIN (test code = HGB) 12.1 gram/dL 11.5-15.5 N HEMATOCRIT (test code = HCT) 40.4 % 36.0-46.0 N MEAN CELL VOLUME (test code = MCV) 82.6 fL 80-98 N MEAN CELL HGB (test code = MCH) 24.7 picogram 27.0-33.0 L MEAN CELL HGB CONCETRATION (test code = MCHC) 30.0 gram/dL 33.0-36. 0 L RED CELL DISTRIBUTION WIDTH (test code = RDW) 14.9 % 11.6-16. 2 N RED CELL DISTRIBUTION WIDTH SD (test code = RDW-SD) 44.7 fL 37 .0-51.0 N PLATELET COUNT (test code = PLT) 141 K/mm3 150-450 L MEAN PLATELET VOLUME (test code = MPV) 10.2 fL 6.7-11.0 N NEUTROPHIL % (test code = NT%) 59.4 % 39.0-69.0 N IMMATURE GRANULOCYTE % (test code = IG%) 1.0 % 0.0-5.0 N LYMPHOCYTE % (test code = LY%) 28.7 % 25.0-55.0 N MONOCYTE % (test code = MO%) 6.8 % 0.0-10.0 N EOSINOPHIL % (test code = EO%) 3.3 % 0.0-5.0 N BASOPHIL % (test code = BA%) 0.8 % 0.0-1.0 N NUCLEATED RBC % (test code = NRBC%) 0.0 % 0-0 N NEUTROPHIL # (test code = NT#) 2.87 K/mm3 1.8-7.7 N IMMATURE GRANULOCYTE # (test code = IG#) 0.05 x10 3/uL 0-0.03 H LYMPHOCYTE # (test code = LY#) 1.39 K/mm3 1.0-5.0 N MONOCYTE # (test code = MO#) 0.33 K/mm3 0-0.8 N EOSINOPHIL # (test code = EO#) 0.16 K/mm3 0.0-0.5 N BASOPHIL # (test code = BA#) 0.04 K/mm3 0.0-0.2 N NUCLEATED RBC # (test code = NRBC#) 0.00 K/mm3 0.0-0.1 N MANUAL DIFF REQUIRED (test code = MDIFF) NO CBC W/AUTO [id number] 02:51:00* Test Item Value Reference Range Interpretation Comments WHITE BLOOD CELL (test code = WBC) K/mm3 4.5-12.5 RED BLOOD CELL (test code = RBC) mill/mm3 3.7-5.2 HEMOGLOBIN (test code = HGB) 12.1 gram/dL 11.5-15.5 N HEMATOCRIT (test code = HCT) 40.4 % 36.0-46.0 N MEAN CELL VOLUME (test code = MCV) fL 80-98 MEAN CELL HGB (test code = MCH) picogram 27.0-33.0 MEAN CELL HGB CONCETRATION (test code = MCHC) gram/dL 33.0-36. 0 RED CELL DISTRIBUTION WIDTH (test code = RDW) % 11.6-16. 2 RED CELL DISTRIBUTION WIDTH SD (test code = RDW-SD) fL 37 .0-51.0 PLATELET COUNT (test code = PLT) K/mm3 150-450 MEAN PLATELET VOLUME (test code = MPV) fL 6.7-11.0 NEUTROPHIL % (test code = NT%) % 39.0-69.0 IMMATURE GRANULOCYTE % (test code = IG%) % 0.0-5.0 LYMPHOCYTE % (test code = LY%) % 25.0-55.0 MONOCYTE % (test code = MO%) % 0.0-10.0 EOSINOPHIL % (test code = EO%) % 0.0-5.0 BASOPHIL % (test code = BA%) % 0.0-1.0 NEUTROPHIL # (test code = NT#) K/mm3 1.8-7.7 LYMPHOCYTE # (test code = LY#) K/mm3 1.0-5.0 MONOCYTE # (test code = MO#) K/mm3 0-0.8 EOSINOPHIL # (test code = EO#) K/mm3 0.0-0.5 BASOPHIL # (test code = BA#) K/mm3 0.0-0.2 URINALYSIS [id number] 01:33:00* Test Item Value Reference Range Interpretation Comments UA COLOR (test code = COLU) COLORLESS YELLOW A UA APPEARANCE (test code = APPU) CLEAR CLEAR UA GLUCOSE DIPSTICK (test code = DGLUU) >1000 (4+) mg/dL NEGATIVE UA BILIRUBIN DIPSTICK (test code = BILU) NEGATIVE mg/dL NEGATIVE UA KETONE DIPSTICK (test code = KETU) NEGATIVE mg/dL NEGATIVE UA SPECIFIC GRAVITY (test code = SGU) 1.026 1.001-1.035 UA BLOOD DIPSTICK (test code = MONICA) Negative mg/dL NEGATIVE UA PH DIPSTICK (test code = VIVEK) 5.0 5.0-8.0 UA PROTEIN DIPSTICK (test code = PROU) NEGATIVE mg/dL NEGATIVE UA UROBILINIOGEN DIPSTICK (test code = URO) Normal mg/dL NEGATIVE UA NITRITE DIPSTICK (test code = GOYO) NEGATIVE NEGATIVE UA LEUKOCYTE ESTERASE W REFLEX (test code = LEUUR) NEGATIVE Kendra/uL NEGATIVE UA WBC (test code = WBCU) 0-5 per HPF 0-5 UA RBC (test code = RBCU) 0-2 #/HPF 0-5 UA EPITHELIAL CELLS (test code = EPIU) FEW per HPF FEW UA BACTERIA (test code = BACU) NONE SEEN #/HPF NONE Urine Source? Clean Catch- XR CHEST 1 [id number] 01:00:00 FAX: Amish Nur Si [phone] [place]: St: REG FAX: Vince Jones DO Name: KALYANI TALAVERA GEO [facility] : 1955 Age/S: 63/F [address] [facility] Unit #: [id number] Loc: [place] [address] Phys: Vince Jones DO Acct: [id number] Dis Date: Status: REG ER PHONE #: [phone] Exam Date: 01/05/2019 0045 FAX #: [phone] Reason: Altered Mental Status EXAMS: CPT CODE: [id number] XR CHEST 1 V 89899 LOCATION: Q15 HISTORY: 63-year-old female who presents with alteration of awareness. COMMENT: A frontal chest radiograph was obtained at 12:44 a.m., and compared to study of [facility] 2018. Central vascular congestion pattern with surrounding interstitial haziness is again seen in the lungs. The cardiac silhouette i s at the upper limits of normal. The skeleton and soft tissues are u nremarkable. IMPRESSION: Central vascular dami estion is suspected in this patient's chest. Electronicall y Signed by Kizzy Malcolm M.D. on 01/05/2019 at 01 00 Reported and signed by: Kizzy See CC: Lucille Nur MD; Vince Jones DO Technologist: RT ROBERT(R) Trnscrd D ate/Time/By: 01/05/2019 (010) : By: [email or web address] Orig Print D/T: S: 12/22 (0103) PAGE 1 Signed Repor t - XR CHEST 1 [id number] 01:00:00 FAX: [facility] Nur Si [phone] [place]: St: [facility] FAX: Vince Jones DO Name: KALYANI TALAVERA [facility] : 1955 Age/S: 63/F [address] [facility] Unit #: [id number] Loc: [place] [address] Phys: Vince Jones DO Acct: [id number] Dis Date: Status: [facility] ER PHONE #: [phone] Exam Date: 01/05/2019 004 FAX #: [phone] Reason: Altered Mental Status EXAMS: CPT CODE: [id number] XR CHEST 1 V 62968 LOCATION: Q15 HISTORY: 63-year-old female who presents with alteration of awareness. COMMENT: A frontal chest radiograph was obtained at 12:44 a.m., and compared to study of [facility] 2018. Central vascular congestion pattern with surrounding interstitial haziness is again seen in the lungs. The cardiac silhouette i s at the upper limits of normal. The skeleton and soft tissues are u nremarkable. IMPRESSION: Central vascular dami estion is suspected in this patient's chest. Electronicall y Signed by Kizzy Malcolm M.D. on 01/05/2019 at 01 00 Reported and signed by: Kizzy See CC: Lucille Nur MD; Vince Jones DO Technologist: SCOOBY PARSONS RT(R) Trnscrd D ate/Time/By: 01/05/2019 (0100) : By: [email or web address] Orig Print D/T: S: 12/22 (0103) PAGE 1 Signed Repor t - XR CHEST 1 [id number] 01:00:00 FAX: [facility] Nur Si [phone] [place]: St: DEP FAX: Vince Jones DO Name: KALYANI TALAVERA [facility] : 1955 Age/S: 63/F [address] [facility] Unit #: [id number] Loc: [place] [address] Phys: Vince Jones DO Acct: [id number] Dis Date: Status: [facility] ER PHONE #: [phone] Exam Date: 01/05/2019 0045 FAX #: [phone] Reason: Altered Mental Status EXAMS: CPT CODE: [id number] XR CHEST 1 V 68534 LOCATION: Q15 HISTORY: 63-year-old female who presents with alteration of awareness. COMMENT: A frontal chest radiograph was obtained at 12:44 a.m., and compared to study of [facility] 2018. Central vascular congestion pattern with surrounding interstitial haziness is again seen in the lungs. The cardiac silhouette i s at the upper limits of normal. The skeleton and soft tissues are u nremarkable. IMPRESSION: Central vascular dami estion is suspected in this patient's chest. Electronicall y Signed by Kizzy Malcolm M.D. on 01/05/2019 at 01 00 Reported and signed by: Kizzy See CC: Lucille Nur MD; Vince Jones DO Technologist: RT ROBERT(R) Trnscrd D ate/Time/By: 01/05/2019 (99) : By: [email or web address] Orig Print D/T: S: 12/22 (010) PAGE 1 Signed Repor t - CT HEAD/BRAIN W/O [id number] 00:55:00 Name: KALYANI TALAVERA [facility] : 1955 Age/S: 63 / F [address] [facility] Unit #: [id number] Loc: [place] [address] Phys: Vince Jones DO Acct: [id number] Dis Date: Status: REG ER PHONE #: [phone] Exam Date: 01/05/201949 FAX #: [phone] Reason: Altered Mental Status EXAMS: CPT CODE: [id number] CT HEAD/BRAIN W/O CONT 87716 EXAM: - CT HEAD/BRAIN W/O CONT Location code:C3 HISTORY: 63 years -old Female with Altered Mental Status TECHNIQUE: Axial CT images from the s kull base to the vertex without intravenous contrast. Coronal and sagitta l reformatted images were created from the data set. One or more of the following dose reduction techniques were used: Automated expos ure control, adjustment of the mA and/or kV according to patient size, and /or utilization of iterative reconstruction technique. DLP: 707.82 mGy-c m. COMPARISON: 11/20/2017 FINDINGS: Intracrania l: No abnormal brain parenchymal density. No evidence of acute infa rction, intracranial hemorrhage, mass or mass effect, or abnormal extra-ax ial fluid collection. The ventricular system and sulci are age a ppropriate. The density in the larger dural sinuses is grossly no rmal. Bones: There is no evidence of acute displaced calvarial fr acture. Sinuses: The visualized portions of the paranasal sinuses demonstrate no significant opacification.The mastoid air cells are clear. Orbits/Soft Tissues: The visualized orbits show no significant abnormalities. The visualized soft tissues are unremarkable. IMPRESSION: 1. No CT evidence of acute intracranial abnorma lity. at 0055 Reported and signed by: Wendie Adan M.D. PAGE 1 Signed Report (CONTINUED) Name: KALYANI TALAVERA [facility] : 1955 Age/S: 63 / F [address] Unit #: [id number] Loc: [place] [address] Phys: Vince Jones DO Acct: [id number] Dis Date: Status: REG ER PHONE #: [phone] Exam Date: 01/05/201949 FAX #: [phone] Reason: Altered Mental Status EXAMS: CPT CODE: [id number] CT HEAD/BRAIN W/O CONT 82201 <Continued> CC: Lucille Nur MD; Vince Jones DO Technologist:Faizan Adame, RT(R)(CT) CTDI: DLP: Trnscb Date/Time: 01/05/2019 (54) [email or web address] Orig Print D/T: S: 01/05/2019 (005) PAGE 2 Signed Report - CT HEAD/BRAIN W/O [id number] 00:55:00 Name: KALYANI TALAVERA [facility] : 1955 Age/S: 63 / F [place] [place] Unit #: [id number] Loc: [place] [address] Phys: Vince Jones DO Acct: [id number] Dis Date: Status: DEP ER PHONE #: [phone] Exam Date: 01/05/201949 FAX #: [phone] Reason: Altered Mental Status EXAMS: CPT CODE: [id number] CT HEAD/BRAIN W/O CONT 30071 EXAM: - CT HEAD/BRAIN W/O CONT Location code:C3 HISTORY: 63 years -old Female with Altered Mental Status TECHNIQUE: Axial CT images from the skull base to the vertex without intravenous contrast. Coronal and sagittal reformatted images were created from the data set. One or more of the following dose reduction techniques were used: Automated exposure control, adjustment of the mA and/or kV according to patient size, and/or utilization of iterative reconstruction technique. DLP: 707.82 mGy-cm. COMPARISON: 11/20/2017 FINDINGS: Intracranial: No abnormal brain parenchymal density. No evidence of acute infarction, intracranial hemorrhage, mass or mass effect, or abnormal extra-axial fluid collection. The ventricular system and sulci are age a ppropriate. The density in the larger dural sinuses is grossly no rmal. Bones: There is no evidence of acute displaced calvarial fr acture. Sinuses: The visualized portions of the paranasal sinuses demonstrate no significant opacification.The mastoid air cells are clear. Orbits/Soft Tissues: The visualized orbits show no significant abnormalities. The visualized soft tissues are unremarkable. IMPRESSION: 1. No CT evidence of acute intracranial abnorma lity. at 0055 Reported and signed by: Wendie Adan M.D. PAGE 1 Signed Report (CONTINUED) Name: KALYANI TALAVERA [facility] : 1955 Age/S: 63 / F [address] Unit #: [id number] Loc: [place] [address] Phys: Vince Jones DO Acct: [id number] Dis Date: Status: [facility] ER PHONE #: [phone] Exam Date: 01/05/201949 FAX #: [phone] Reason: Altered Mental Status EXAMS: CPT CODE: [id number] CT HEAD/BRAIN W/O CONT 20208 <Continued> CC: Lucille Nur MD; Vince Jones DO Technologist:RT Susan(R)(CT) CTDI: DLP: Trnscb Date/Time: 01/05/2019 (005) [email or web address] Orig Print D/T: S: 01/05/2019 (005) PAGE 2 Signed Report - CT HEAD/BRAIN W/O [id number] 00:55:00 Name: KALYANI TALAVERA [facility] : 1955 Age/S: 63 / F [address] Unit #: [id number] Loc: [place] [address] Phys: Vince Jones DO Acct: [id number] Dis Date: Status: [facility] ER PHONE #: [phone] Exam Date: 01/05/2019 0050 FAX #: [phone] Reason: Altered Mental Status EXAMS: CPT CODE: [id number] CT HEAD/BRAIN W/O CONT 63333 EXAM: - CT HEAD/BRAIN W/O CONT Location code:C3 HISTORY: 63 years -old Female with Altered Mental Status TECHNIQUE: Axial CT images from the skull base to the vertex without intravenous contrast. Coronal and sagittal reformatted images were created from the data set. One or more of the following dose reduction techniques were used: Automated exposure control, adjustment of the mA and/or kV according to patient size, and/or utilization of iterative reconstruction technique. DLP: 707.82 mGy-cm. COMPARISON: 11/20/2017 FINDINGS: Intracranial: No abnormal brain parenchymal density. No evidence of acute infarction, intracranial hemorrhage, mass or mass effect, or abnormal extra-axial fluid collection. The ventricular system and sulci are age a ppropriate. The density in the larger dural sinuses is grossly no rmal. Bones: There is no evidence of acute displaced calvarial fr acture. Sinuses: The visualized portions of the paranasal sinuses demonstrate no significant opacification.The mastoid air cells are clear. Orbits/Soft Tissues: The visualized orbits show no significant abnormalities. The visualized soft tissues are unremarkable. IMPRESSION: 1. No CT evidence of acute intracranial abnorma lity. at 0055 Reported and signed by: Wendie Adan M.D. PAGE 1 Signed Report (CONTINUED) Name: KALYANI TALAVERA [facility] : 1955 Age/S: 63 / F [address] [facility] Unit #: [id number] Loc: [place] [address] Phys: RobertVince Astrid DO Acct: [id number] Dis Date: Status: [facility] ER PHONE #: [phone] Exam Date: 01/05/20190 FAX #: [phone] Reason: Altered Mental Status EXAMS: CPT CODE: [id number] CT HEAD/BRAIN W/O CONT 89315 <Continued> CC: Lucille Nur MD; Vince Jones DO Technologist:Faizan Adame, RT(R)(CT) CTDI: DLP: Trnscb Date/Time: 01/05/2019 (54) [email or web address] Orig Print D/T: S: 01/05/2019 (0058) PAGE 2 Signed Report GASTRIC,[id number] 16:33:00 RUN DATE: 11/16/18 [place] - Lab PAGE 1 RUN TIME: 1633 Specimen Inqui ry RUN USER: INTERFACE PATIENT: KALYANI TALAVERA ACCT #: [id number] LOC: [facility] U #: [id number] AGE/SX: 63/F ROOM: RE11/15/18REG DR: Kb Bradford MD : 57 BED: DIS: STATUS: [facility] TLOC: SPEC #: [id number] RECD: 11/15/18 STATUS: SHREYA BROWN #: [id number] MARILEE: 11/15/18-[address]: Kb Bradford MD ENTERED: 11/15/18 SP TYPE: GASTRIC BX OTHR DR: Lucille Torres MDORDERED: GROSS COPIES TO: Lucille Nur MD [address] [place] [address] Kb Bradford Si, MD [address] 1958 [address] [place], [place] [id number] PROCEDURES: GROSS ( 11/16/18) TISSUES: 1. ANTRUM - BX 2. BODY BIOPSY OF STOMA CH CLINICAL HISTORY COLLECTION DATE: 11/15/18 DYSPHAGIA FINAL DIAGNOSIS Gastric antrum, biopsy: SUGGESTIVE OF MILD REACTIVE GA STROPATHY CHANGE NO SIGNIFICANT ACUTE OR CHRONIC INFLAMMATION PRESENT NO AREAS OF MUCOSAL EROSION/ULCERATION NEGATIVE FOR INTESTINAL METAPL DONNA NEGATIVE FOR HELICOBACTER ORGANISMS Gastric body, biopsy: GASTRIC MUCOSA WITH NO DISCRETE PATHOLOGIC ULCERATION RRB/sm D 2)37943, 13414 CONTINUED ON NEXT PAGE RUN DATE: 11/16/18 [facility] PAGE 2 RUN TIME: 1633 Specimen Inquiry RUN USER: INTERFACE SPEC #: [id number] PATIENT: TALAVERAKHANH #[id number] (Continued) MACROSC OPIC The first specimen is received in formalin, labeled with the patient's n everett, identified as "antrum bx". It consists of gutierrez biopsy tissue measuring 0. 3 cm, submitted as (1). An H E and a Giemsa stain will be prepared. The second specimen is received in formalin, labeled with the patient's name, azalia ntified as "body of stomach bx". It consists of two gutierrez biopsy tissue measuri ng 0.25 and 0.3 cm, submitted as (2). GROSS PERFORMED AT [facility] [address] [place] [address] [phone] MICROSCOPIC All of the stains, inc luding any controls performed, stain appropriately. MICROSCOPIC PERFORMED AT [facility] [address] [place] [address] ([phone] PERFORMING SITE Diagnosis perf ormed at: [facility] Cons YANETH aceves [address] [place] [address] [phone] Signed SIGNATURE ON FILE Tristan Markham MD 11/16/18 1633 * * END OF REPORT [id number] 06:50:00* Test Item Value Reference Range Interpretation Comments GLUBED (test code = GLUBED) 292 mg/dL 74-106 H Performed by certified glue spreading machine operator at [facility] - XR RIBS UNI 2 V [id number] 14:33:00 FAX: Amish Nur Si [phone] [place]: O St: REG Name: KALYANI CATES [facility] : [birth year] Age/S: 63/F [address] [facility] Unit #: [id number] Loc: [place] [address] Phys: Chris Nur MD Acct: [id number] Dis Date: Status: REG CLI PHONE #: [phone] Exam Date: 11/09/2018 1220 FAX #: [phone] Reason: PAIN EXAMS: CPT CODE: [id number] XR RIBS UNI 2 [place] [address] HISTORY: Pain. NINA RISON: Chest x-ray from October 30, 2018. Right rib series. No acute fracture of the right ribs. Study slightly limited due to un derpenetrated technique. IMPRESSION: No right rib fracture. Study is limited due to suboptimal technique. Correlate wi th bone scan for further evaluation as clinically indicated. at 1433 Reported and signed by: Solomon Chowdhury M.D. CC: Lucille Nur MD Technologist: Claire santos RT(R) Trnscrd Date/Time/By: 11/09/2018 (1433) : By: [email or web address] Orig Print D/T: S: 11/09/2018 (8022) PAGE 1 Signed Report [id number] 17:05:00* Test Item Value Reference Range Interpretation Comments GLUBED (test code = GLUBED) 274 mg/dL 74-106 H Performed by certified glue spreading machine operator at [facility] [id number] 11:39:00* Test Item Value Reference Range Interpretation Comments GLUBED (test code = GLUBED) 284 mg/dL 74-106 H Performed by certified glue spreading machine operator at [facility] [id number] 07:48:00* Test Item Value Reference Range Interpretation Comments GLUBED (test code = GLUBED) 285 mg/dL 74-106 H Performed by certified glue spreading machine operator at [facility] [id number] 20:08:00* Test Item Value Reference Range Interpretation Comments GLUBED (test code = GLUBED) 252 mg/dL 74-106 H Performed by certified glue spreading machine operator at [facility] [id number] 16:09:00* Test Item Value Reference Range Interpretation Comments GLUBED (test code = GLUBED) 329 mg/dL 74-106 H Performed by certified glue spreading machine operator at [facility] BASIC METABOLIC [id number] 12:51:00* Test Item Value Reference Range Interpretation Comments SODIUM (test code = NA) 141 mmol/L 136-145 N POTASSIUM (test code = K) 3.9 mmol/L 3.5-5.1 N CHLORIDE (test code = CL) 107.0 mmol/L 98-107 N CARBON DIOXIDE (test code = CO2) 26.0 mmol/L 21-32 N ANION GAP (test code = GAP) 11.9 10-20 N GLUCOSE (test code = GLU) 305 mg/dL 74-106 H BLOOD UREA NITROGEN (test code = BUN) 24 mg/dL 7-18 H GLOMERULAR FILTRATION RATE (test code = GFR) 50 mL/min >=60 Estimated GFR by using Modified MDRD formula.Chronic kidney disease is defined as either kidney damageor GFR <60 mL/min/1.73 m2 for >3 months. CREATININE (test code = CREAT) 1.10 mg/dL 0.55-1.02 H Note change in reference range due to change in reagent. BUN/CREATININE RATIO (test code = BUN/CREA) 21.8 10-20 H CALCIUM (test code = CA) 8.6 mg/dL 8.5-10.1 N BASIC METABOLIC [id number] 12:40:00* Test Item Value Reference Range Interpretation Comments SODIUM (test code = NA) 141 mmol/L 136-145 N POTASSIUM (test code = K) 3.9 mmol/L 3.5-5.1 N CHLORIDE (test code = CL) 107.0 mmol/L 98-107 N CARBON DIOXIDE (test code = CO2) mmol/L 21-32 ANION GAP (test code = GAP) 10-20 GLUCOSE (test code = GLU) mg/dL 74-106 BLOOD UREA NITROGEN (test code = BUN) mg/dL 7-18 GLOMERULAR FILTRATION RATE (test code = GFR) mL/min >=60 CREATININE (test code = CREAT) mg/dL 0.55-1.02 BUN/CREATININE RATIO (test code = BUN/CREA) 10-20 CALCIUM (test code = CA) mg/dL 8.5-10.1 [id number] 10:39:00* Test Item Value Reference Range Interpretation Comments GLUBED (test code = GLUBED) 281 mg/dL 74-106 H Performed by certified glue spreading machine operator at [facility] [id number] 07:54:00* Test Item Value Reference Range Interpretation Comments GLUBED (test code = GLUBED) 299 mg/dL 74-106 H Performed by certified glue spreading machine operator at [facility] [id number] 21:58:00* Test Item Value Reference Range Interpretation Comments TROPONIN-I (test code = TROPI) <0.015 ng/mL 0-0.045 N SPECIMEN COMMENTS: [id number] 20:26:00* Test Item Value Reference Range Interpretation Comments GLUBED (test code = GLUBED) 340 mg/dL 74-106 H Performed by certified glue spreading machine operator at [facility] [id number] 17:09:00* Test Item Value Reference Range Interpretation Comments GLUBED (test code = GLUBED) 370 mg/dL 74-106 H Performed by certified glue spreading machine operator at [facility] [id number] 10:49:00* Test Item Value Reference Range Interpretation Comments GLUBED (test code = GLUBED) 351 mg/dL 74-106 H Performed by certified glue spreading machine operator at [facility] [id number] 09:54:00* Test Item Value Reference Range Interpretation Comments GLUBED (test code = GLUBED) 304 mg/dL 74-106 H Performed by certified glue spreading machine operator at [facility] [id number] 09:20:00* Test Item Value Reference Range Interpretation Comments TROPONIN-I (test code = TROPI) <0.015 ng/mL 0-0.045 N COMMENTS TO PATIENT EDUCATOR: COLLECT 3 HOURS AFTER PREVIOUS [id number] 03:55:00* Test Item Value Reference Range Interpretation Comments TROPONIN-I (test code = TROPI) <0.015 ng/mL 0-0.045 N COMMENTS TO PATIENT EDUCATOR: COLLECT 3 HOURS AFTER PREVIOUS SAMPLECBC W/AUTO [id number] 01:32:00* Test Item Value Reference Range Interpretation Comments WHITE BLOOD CELL (test code = WBC) 5.6 K/mm3 4.5-12.5 N RED BLOOD CELL (test code = RBC) 4.52 mill/mm3 3.7-5.2 N HEMOGLOBIN (test code = HGB) 10.9 gram/dL 11.5-15.5 L HEMATOCRIT (test code = HCT) 38.2 % 36.0-46.0 N MEAN CELL VOLUME (test code = MCV) 84.5 fL 80-98 N MEAN CELL HGB (test code = MCH) 24.1 picogram 27.0-33.0 L MEAN CELL HGB CONCETRATION (test code = MCHC) 28.5 gram/dL 33.0-36. 0 L RED CELL DISTRIBUTION WIDTH (test code = RDW) 16.4 % 11.6-16. 2 H RED CELL DISTRIBUTION WIDTH SD (test code = RDW-SD) 50.2 fL 37 .0-51.0 N PLATELET COUNT (test code = PLT) 158 K/mm3 150-450 N MEAN PLATELET VOLUME (test code = MPV) 11.2 fL 6.7-11.0 H NEUTROPHIL % (test code = NT%) 72.6 % 39.0-69.0 H IMMATURE GRANULOCYTE % (test code = IG%) 0.9 % 0.0-5.0 N LYMPHOCYTE % (test code = LY%) 18.1 % 25.0-55.0 L MONOCYTE % (test code = MO%) 5.0 % 0.0-10.0 N EOSINOPHIL % (test code = EO%) 2.5 % 0.0-5.0 N BASOPHIL % (test code = BA%) 0.9 % 0.0-1.0 N NUCLEATED RBC % (test code = NRBC%) 0.0 % 0-0 N NEUTROPHIL # (test code = NT#) 4.05 K/mm3 1.8-7.7 N IMMATURE GRANULOCYTE # (test code = IG#) 0.05 x10 3/uL 0-0.03 H LYMPHOCYTE # (test code = LY#) 1.01 K/mm3 1.0-5.0 N MONOCYTE # (test code = MO#) 0.28 K/mm3 0-0.8 N EOSINOPHIL # (test code = EO#) 0.14 K/mm3 0.0-0.5 N BASOPHIL # (test code = BA#) 0.05 K/mm3 0.0-0.2 N NUCLEATED RBC # (test code = NRBC#) 0.00 K/mm3 0.0-0.1 N MANUAL DIFF REQUIRED (test code = MDIFF) NO, ONLY SCAN NEEDED DIFFERENTIAL [id number] 01:32:00* Test Item Value Reference Range Interpretation Comments STAIN ACCEPTABILITY (test code = STN ACCEPTABLE) STAIN ACCEPTABLE POLYCHROMASIA (test code = POLC) 1+ HYPOCHROMIA (test code = HYPO) 1+ ANISOCYTOSIS (test code = ANISO) 1+ MICROCYTOSIS (test code = MICR) 1+ PLATELET ESTIMATE (test code = PLTEST) ADEQUATE PLATELET MORPHOLOGY (test code = PLTMORPH) NORMAL URINALYSIS [id number] 01:10:00* Test Item Value Reference Range Interpretation Comments UA COLOR (test code = COLU) STRAW YELLOW UA APPEARANCE (test code = APPU) CLEAR CLEAR UA GLUCOSE DIPSTICK (test code = DGLUU) >=500 mg/dL NEGATIVE A UA BILIRUBIN DIPSTICK (test code = BILU) NEGATIVE mg/dL NEGATIVE UA KETONE DIPSTICK (test code = KETU) NEGATIVE mg/dL NEGATIVE UA SPECIFIC GRAVITY (test code = SGU) 1.025 1.001-1.035 UA BLOOD DIPSTICK (test code = MONICA) Negative mg/dL NEGATIVE UA PH DIPSTICK (test code = VIVEK) 8.0 5.0-8.0 UA PROTEIN DIPSTICK (test code = PROU) NEGATIVE mg/dL NEGATIVE UA UROBILINIOGEN DIPSTICK (test code = URO) NEGATIVE mg/dL NEGATIVE UA NITRITE DIPSTICK (test code = GOYO) NEGATIVE NEGATIVE UA LEUKOCYTE ESTERASE W REFLEX (test code = LEUUR) NEGATIVE Kendra/uL NEGATIVE UA WBC (test code = WBCU) 0-5 per HPF 0-5 UA RBC (test code = RBCU) 0-2 #/HPF 0-5 UA EPITHELIAL CELLS (test code = EPIU) FEW per HPF FEW UA BACTERIA (test code = BACU) NONE SEEN #/HPF NONE Urine Source? Clean CatchURINALYSIS [id number] 01:06:00* Test Item Value Reference Range Interpretation Comments UA COLOR (test code = COLU) STRAW YELLOW UA APPEARANCE (test code = APPU) CLEAR CLEAR UA GLUCOSE DIPSTICK (test code = DGLUU) >=500 mg/dL NEGATIVE A UA BILIRUBIN DIPSTICK (test code = BILU) NEGATIVE mg/dL NEGATIVE UA KETONE DIPSTICK (test code = KETU) NEGATIVE mg/dL NEGATIVE UA SPECIFIC GRAVITY (test code = SGU) 1.025 1.001-1.035 UA BLOOD DIPSTICK (test code = MONICA) Negative mg/dL NEGATIVE UA PH DIPSTICK (test code = VIVEK) 8.0 5.0-8.0 UA PROTEIN DIPSTICK (test code = PROU) NEGATIVE mg/dL NEGATIVE UA UROBILINIOGEN DIPSTICK (test code = URO) NEGATIVE mg/dL NEGATIVE UA NITRITE DIPSTICK (test code = GOYO) NEGATIVE NEGATIVE UA LEUKOCYTE ESTERASE W REFLEX (test code = LEUUR) NEGATIVE Kendra/uL NEGATIVE UA WBC (test code = WBCU) per HPF 0-5 UA RBC (test code = RBCU) per HPF 0-5 UA EPITHELIAL CELLS (test code = EPIU) per HPF Few UA BACTERIA (test code = BACU) per HPF NONE Urine Source? Clean CatchURINALYSIS [id number] 01:03:00* Test Item Value Reference Range Interpretation Comments UA COLOR (test code = COLU) STRAW YELLOW UA APPEARANCE (test code = APPU) CLEAR CLEAR UA BILIRUBIN DIPSTICK (test code = BILU) NEGATIVE mg/dL NEGATIVE UA KETONE DIPSTICK (test code = KETU) NEGATIVE mg/dL NEGATIVE UA SPECIFIC GRAVITY (test code = SGU) 1.025 1.001-1.035 UA BLOOD DIPSTICK (test code = MONICA) Negative mg/dL NEGATIVE UA PH DIPSTICK (test code = VIVEK) 8.0 5.0-8.0 UA PROTEIN DIPSTICK (test code = PROU) NEGATIVE mg/dL NEGATIVE UA UROBILINIOGEN DIPSTICK (test code = URO) NEGATIVE mg/dL NEGATIVE UA NITRITE DIPSTICK (test code = GOYO) NEGATIVE NEGATIVE UA LEUKOCYTE ESTERASE W REFLEX (test code = LEUUR) NEGATIVE Kendra/uL NEGATIVE UA WBC (test code = WBCU) per HPF 0-5 UA RBC (test code = RBCU) per HPF 0-5 UA EPITHELIAL CELLS (test code = EPIU) per HPF Few UA BACTERIA (test code = BACU) per HPF NONE Urine Source? Clean [id number] 00:46:00* Test Item Value Reference Range Interpretation Comments GLUBED (test code = GLUBED) 415 mg/dL 74-106 H Performed by certified glue spreading machine operator at [facility] VENOUS BLOOD [id number] 23:47:00* Test Item Value Reference Range Interpretation Comments VENOUS BLOOD GAS PH (test code = PHV) 7.38 7.30-7.40 N VENOUS BLOOD GAS PCO2 (test code = PCO2V) 39.5 mm Hg 39.0-51.0 N VENOUS BLOOD GAS PO2 (test code = PO2V) 44.6 mm Hg 30.0-50.0 N VBG HCO3 (test code = HCO3V) 23.1 mmol/L 17.0-30.0 N VBG BASE EXCESS (test code = CASEY) -1.8 mmol/L -5.0-5.0 N VENOUS BLOOD GAS O2 SAT. (test code = O2SATV) 79 % 94-98 LL VENOUS BLOOD GAS FIO2 (test code = FIO2V) 21.0 PT. HGB (test code = PHGBVBG) 12.2 gram/dL 11.5-15.5 N VENOUS BLOOD GAS SITE (test code = SITEV) IVC HEMATOCRIT (test code = HCT/VBG) 36 % 42-52 L HGB O2 SAT (test code = HBOSAT) 77.2 % 94.00-98.00 LL CARBOXYHEMOGLOBIN (test code = HOHGBT) 1.3 %totalHg 0.5-1.5 N METHEMOGLOBIN (test code = METHGB) 0.4 % 0.0-1.50 N COMPREHENSIVE METABOLIC [id number] 23:25:00* Test Item Value Reference Range Interpretation Comments SODIUM (test code = NA) 134 mmol/L 136-145 L POTASSIUM (test code = K) 4.2 mmol/L 3.5-5.1 N CHLORIDE (test code = CL) 99.0 mmol/L 98-107 N CARBON DIOXIDE (test code = CO2) 26.0 mmol/L 21-32 N ANION GAP (test code = GAP) 13.2 10-20 N GLUCOSE (test code = GLU) 537 mg/dL 74-106 HH Re sults called to [id number] by [employer].JP1 10/30/18 2325Critical results verified and read back by Nurse? Y BLOOD UREA NITROGEN (test code = BUN) 38 mg/dL 7-18 H GLOMERULAR FILTRATION RATE (test code = GFR) 38 mL/min >=60 Estimated GFR by using Modified MDRD formula.Chronic kidney disease is defined as either kidney damageor GFR <60 mL/min/1.73 m2 for >3 months. CREATININE (test code = CREAT) 1.40 mg/dL 0.55-1.02 H Note change in reference range due to change in reagent. BUN/CREATININE RATIO (test code = BUN/CREA) 27.1 10-20 H TOTAL PROTEIN (test code = PROT) 6.9 gram/dL 6.4-8.2 N ALBUMIN (test code = ALB) 3.2 g/dL 3.4-5.0 L GLOBULIN (test code = GLOB) 3.7 gram/dL 2.7-4.2 N ALBUMIN/GLOBULIN RATIO (test code = A/G) 0.9 0.75-1.50 N CALCIUM (test code = CA) 8.5 mg/dL 8.5-10.1 N BILIRUBIN TOTAL (test code = BILT) 0.30 mg/dL 0.0-1.0 N SGOT/AST (test code = AST) 9 IUnit/L 15-37 L SGPT/ALT (test code = ALT) 18 IUnit/L 12-78 N ALKALINE PHOSPHATASE TOTAL (test code = ALKP) 83 IUnit/L 45-117 N Note change in reference range due to change in reagent. [id number] 23:25:00* Test Item Value Reference Range Interpretation Comments LIPASE (test code = LIP) 113 U/L 73.0-393.0 N [id number] 23:25:00* Test Item Value Reference Range Interpretation Comments CKMB (test code = CKMBT) < 1.0 ng/mL 0-6.0 N [id number] 23:25:00* Test Item Value Reference Range Interpretation Comments TROPONIN-I (test code = TROPI) <0.015 ng/mL 0-0.045 N CBC W/AUTO [id number] 23:21:00* Test Item Value Reference Range Interpretation Comments WHITE BLOOD CELL (test code = WBC) 5.6 K/mm3 4.5-12.5 N RED BLOOD CELL (test code = RBC) 4.52 mill/mm3 3.7-5.2 N HEMOGLOBIN (test code = HGB) 10.9 gram/dL 11.5-15.5 L HEMATOCRIT (test code = HCT) 38.2 % 36.0-46.0 N MEAN CELL VOLUME (test code = MCV) 84.5 fL 80-98 N MEAN CELL HGB (test code = MCH) 24.1 picogram 27.0-33.0 L MEAN CELL HGB CONCETRATION (test code = MCHC) 28.5 gram/dL 33.0-36. 0 L RED CELL DISTRIBUTION WIDTH (test code = RDW) 16.4 % 11.6-16. 2 H RED CELL DISTRIBUTION WIDTH SD (test code = RDW-SD) 50.2 fL 37 .0-51.0 N PLATELET COUNT (test code = PLT) 158 K/mm3 150-450 N MEAN PLATELET VOLUME (test code = MPV) 11.2 fL 6.7-11.0 H NEUTROPHIL % (test code = NT%) 72.6 % 39.0-69.0 H IMMATURE GRANULOCYTE % (test code = IG%) 0.9 % 0.0-5.0 N LYMPHOCYTE % (test code = LY%) 18.1 % 25.0-55.0 L MONOCYTE % (test code = MO%) 5.0 % 0.0-10.0 N EOSINOPHIL % (test code = EO%) 2.5 % 0.0-5.0 N BASOPHIL % (test code = BA%) 0.9 % 0.0-1.0 N NUCLEATED RBC % (test code = NRBC%) 0.0 % 0-0 N NEUTROPHIL # (test code = NT#) 4.05 K/mm3 1.8-7.7 N IMMATURE GRANULOCYTE # (test code = IG#) 0.05 x10 3/uL 0-0.03 H LYMPHOCYTE # (test code = LY#) 1.01 K/mm3 1.0-5.0 N MONOCYTE # (test code = MO#) 0.28 K/mm3 0-0.8 N EOSINOPHIL # (test code = EO#) 0.14 K/mm3 0.0-0.5 N BASOPHIL # (test code = BA#) 0.05 K/mm3 0.0-0.2 N NUCLEATED RBC # (test code = NRBC#) 0.00 K/mm3 0.0-0.1 N MANUAL DIFF REQUIRED (test code = MDIFF) NO, ONLY SCAN NEEDED DIFFERENTIAL [id number] 23:21:00* Test Item Value Reference Range Interpretation Comments STAIN ACCEPTABILITY (test code = STN ACCEPTABLE) CABOT RINGS (test code = CAB) MORPHOLOGY COMMENT (test code = MOC) PLATELET ESTIMATE (test code = PLTEST) PLATELET MORPHOLOGY (test code = PLTMORPH) CBC W/AUTO [id number] 23:21:00* Test Item Value Reference Range Interpretation Comments WHITE BLOOD CELL (test code = WBC) 5.6 K/mm3 4.5-12.5 N RED BLOOD CELL (test code = RBC) 4.52 mill/mm3 3.7-5.2 N HEMOGLOBIN (test code = HGB) 10.9 gram/dL 11.5-15.5 L HEMATOCRIT (test code = HCT) 38.2 % 36.0-46.0 N MEAN CELL VOLUME (test code = MCV) 84.5 fL 80-98 N MEAN CELL HGB (test code = MCH) 24.1 picogram 27.0-33.0 L MEAN CELL HGB CONCETRATION (test code = MCHC) 28.5 gram/dL 33.0-36. 0 L RED CELL DISTRIBUTION WIDTH (test code = RDW) 16.4 % 11.6-16. 2 H RED CELL DISTRIBUTION WIDTH SD (test code = RDW-SD) 50.2 fL 37 .0-51.0 N PLATELET COUNT (test code = PLT) 158 K/mm3 150-450 N MEAN PLATELET VOLUME (test code = MPV) 11.2 fL 6.7-11.0 H NEUTROPHIL % (test code = NT%) 72.6 % 39.0-69.0 H IMMATURE GRANULOCYTE % (test code = IG%) 0.9 % 0.0-5.0 N LYMPHOCYTE % (test code = LY%) 18.1 % 25.0-55.0 L MONOCYTE % (test code = MO%) 5.0 % 0.0-10.0 N EOSINOPHIL % (test code = EO%) 2.5 % 0.0-5.0 N BASOPHIL % (test code = BA%) 0.9 % 0.0-1.0 N NUCLEATED RBC % (test code = NRBC%) 0.0 % 0-0 N NEUTROPHIL # (test code = NT#) 4.05 K/mm3 1.8-7.7 N IMMATURE GRANULOCYTE # (test code = IG#) 0.05 x10 3/uL 0-0.03 H LYMPHOCYTE # (test code = LY#) 1.01 K/mm3 1.0-5.0 N MONOCYTE # (test code = MO#) 0.28 K/mm3 0-0.8 N EOSINOPHIL # (test code = EO#) 0.14 K/mm3 0.0-0.5 N BASOPHIL # (test code = BA#) 0.05 K/mm3 0.0-0.2 N NUCLEATED RBC # (test code = NRBC#) 0.00 K/mm3 0.0-0.1 N MANUAL DIFF REQUIRED (test code = MDIFF) NO, ONLY SCAN NEEDED DIFFERENTIAL [id number] 23:21:00* Test Item Value Reference Range Interpretation Comments STAIN ACCEPTABILITY (test code = STN ACCEPTABLE) CABOT RINGS (test code = CAB) MORPHOLOGY COMMENT (test code = MOC) PLATELET ESTIMATE (test code = PLTEST) PLATELET MORPHOLOGY (test code = PLTMORPH) CBC W/AUTO [id number] 23:21:00* Test Item Value Reference Range Interpretation Comments WHITE BLOOD CELL (test code = WBC) 5.6 K/mm3 4.5-12.5 N RED BLOOD CELL (test code = RBC) 4.52 mill/mm3 3.7-5.2 N HEMOGLOBIN (test code = HGB) 10.9 gram/dL 11.5-15.5 L HEMATOCRIT (test code = HCT) 38.2 % 36.0-46.0 N MEAN CELL VOLUME (test code = MCV) 84.5 fL 80-98 N MEAN CELL HGB (test code = MCH) 24.1 picogram 27.0-33.0 L MEAN CELL HGB CONCETRATION (test code = MCHC) 28.5 gram/dL 33.0-36. 0 L RED CELL DISTRIBUTION WIDTH (test code = RDW) 16.4 % 11.6-16. 2 H RED CELL DISTRIBUTION WIDTH SD (test code = RDW-SD) 50.2 fL 37 .0-51.0 N PLATELET COUNT (test code = PLT) 158 K/mm3 150-450 N MEAN PLATELET VOLUME (test code = MPV) 11.2 fL 6.7-11.0 H NEUTROPHIL % (test code = NT%) 72.6 % 39.0-69.0 H IMMATURE GRANULOCYTE % (test code = IG%) 0.9 % 0.0-5.0 N LYMPHOCYTE % (test code = LY%) 18.1 % 25.0-55.0 L MONOCYTE % (test code = MO%) 5.0 % 0.0-10.0 N EOSINOPHIL % (test code = EO%) 2.5 % 0.0-5.0 N BASOPHIL % (test code = BA%) 0.9 % 0.0-1.0 N NUCLEATED RBC % (test code = NRBC%) 0.0 % 0-0 N NEUTROPHIL # (test code = NT#) 4.05 K/mm3 1.8-7.7 N IMMATURE GRANULOCYTE # (test code = IG#) 0.05 x10 3/uL 0-0.03 H LYMPHOCYTE # (test code = LY#) 1.01 K/mm3 1.0-5.0 N MONOCYTE # (test code = MO#) 0.28 K/mm3 0-0.8 N EOSINOPHIL # (test code = EO#) 0.14 K/mm3 0.0-0.5 N BASOPHIL # (test code = BA#) 0.05 K/mm3 0.0-0.2 N NUCLEATED RBC # (test code = NRBC#) 0.00 K/mm3 0.0-0.1 N MANUAL DIFF REQUIRED (test code = MDIFF) NO, ONLY SCAN NEEDED DIFFERENTIAL [id number] 23:21:00* Test Item Value Reference Range Interpretation Comments STAIN ACCEPTABILITY (test code = STN ACCEPTABLE) MORPHOLOGY COMMENT (test code = MOC) PLATELET ESTIMATE (test code = PLTEST) PLATELET MORPHOLOGY (test code = PLTMORPH) CBC W/AUTO [id number] 23:20:00* Test Item Value Reference Range Interpretation Comments WHITE BLOOD CELL (test code = WBC) 5.6 K/mm3 4.5-12.5 N RED BLOOD CELL (test code = RBC) 4.52 mill/mm3 3.7-5.2 N HEMOGLOBIN (test code = HGB) 10.9 gram/dL 11.5-15.5 L HEMATOCRIT (test code = HCT) 38.2 % 36.0-46.0 N MEAN CELL VOLUME (test code = MCV) 84.5 fL 80-98 N MEAN CELL HGB (test code = MCH) 24.1 picogram 27.0-33.0 L MEAN CELL HGB CONCETRATION (test code = MCHC) 28.5 gram/dL 33.0-36. 0 L RED CELL DISTRIBUTION WIDTH (test code = RDW) 16.4 % 11.6-16. 2 H RED CELL DISTRIBUTION WIDTH SD (test code = RDW-SD) 50.2 fL 37 .0-51.0 N PLATELET COUNT (test code = PLT) 158 K/mm3 150-450 N MEAN PLATELET VOLUME (test code = MPV) 11.2 fL 6.7-11.0 H NEUTROPHIL % (test code = NT%) 72.6 % 39.0-69.0 H IMMATURE GRANULOCYTE % (test code = IG%) 0.9 % 0.0-5.0 N LYMPHOCYTE % (test code = LY%) 18.1 % 25.0-55.0 L MONOCYTE % (test code = MO%) 5.0 % 0.0-10.0 N EOSINOPHIL % (test code = EO%) 2.5 % 0.0-5.0 N BASOPHIL % (test code = BA%) 0.9 % 0.0-1.0 N NUCLEATED RBC % (test code = NRBC%) 0.0 % 0-0 N NEUTROPHIL # (test code = NT#) 4.05 K/mm3 1.8-7.7 N IMMATURE GRANULOCYTE # (test code = IG#) 0.05 x10 3/uL 0-0.03 H LYMPHOCYTE # (test code = LY#) 1.01 K/mm3 1.0-5.0 N MONOCYTE # (test code = MO#) 0.28 K/mm3 0-0.8 N EOSINOPHIL # (test code = EO#) 0.14 K/mm3 0.0-0.5 N BASOPHIL # (test code = BA#) 0.05 K/mm3 0.0-0.2 N NUCLEATED RBC # (test code = NRBC#) 0.00 K/mm3 0.0-0.1 N MANUAL DIFF REQUIRED (test code = MDIFF) NO, ONLY SCAN NEEDED DIFFERENTIAL [id number] 23:20:00* Test Item Value Reference Range Interpretation Comments STAIN ACCEPTABILITY (test code = STN ACCEPTABLE) CABOT RINGS (test code = CAB) MORPHOLOGY COMMENT (test code = MOC) PLATELET ESTIMATE (test code = PLTEST) PLATELET MORPHOLOGY (test code = PLTMORPH) CBC W/AUTO [id number] 23:08:00* Test Item Value Reference Range Interpretation Comments WHITE BLOOD CELL (test code = WBC) K/mm3 4.5-12.5 RED BLOOD CELL (test code = RBC) mill/mm3 3.7-5.2 HEMOGLOBIN (test code = HGB) gram/dL 11.5-15.5 HEMATOCRIT (test code = HCT) 38.2 % 36.0-46.0 N MEAN CELL VOLUME (test code = MCV) fL 80-98 MEAN CELL HGB (test code = MCH) picogram 27.0-33.0 MEAN CELL HGB CONCETRATION (test code = MCHC) gram/dL 33.0-36. 0 RED CELL DISTRIBUTION WIDTH (test code = RDW) % 11.6-16. 2 RED CELL DISTRIBUTION WIDTH SD (test code = RDW-SD) fL 37 .0-51.0 PLATELET COUNT (test code = PLT) K/mm3 150-450 MEAN PLATELET VOLUME (test code = MPV) fL 6.7-11.0 NEUTROPHIL % (test code = NT%) % 39.0-69.0 IMMATURE GRANULOCYTE % (test code = IG%) % 0.0-5.0 LYMPHOCYTE % (test code = LY%) % 25.0-55.0 MONOCYTE % (test code = MO%) % 0.0-10.0 EOSINOPHIL % (test code = EO%) % 0.0-5.0 BASOPHIL % (test code = BA%) % 0.0-1.0 NEUTROPHIL # (test code = NT#) K/mm3 1.8-7.7 LYMPHOCYTE # (test code = LY#) K/mm3 1.0-5.0 MONOCYTE # (test code = MO#) K/mm3 0-0.8 EOSINOPHIL # (test code = EO#) K/mm3 0.0-0.5 BASOPHIL # (test code = BA#) K/mm3 0.0-0.2 COMPREHENSIVE METABOLIC [id number] 23:06:00* Test Item Value Reference Range Interpretation Comments SODIUM (test code = NA) 134 mmol/L 136-145 L POTASSIUM (test code = K) 4.2 mmol/L 3.5-5.1 N CHLORIDE (test code = CL) 99.0 mmol/L 98-107 N CARBON DIOXIDE (test code = CO2) mmol/L 21-32 ANION GAP (test code = GAP) 10-20 GLUCOSE (test code = GLU) mg/dL 74-106 BLOOD UREA NITROGEN (test code = BUN) mg/dL 7-18 GLOMERULAR FILTRATION RATE (test code = GFR) mL/min >=60 CREATININE (test code = CREAT) mg/dL 0.55-1.02 BUN/CREATININE RATIO (test code = BUN/CREA) 10-20 TOTAL PROTEIN (test code = PROT) gram/dL 6.4-8.2 ALBUMIN (test code = ALB) g/dL 3.4-5.0 GLOBULIN (test code = GLOB) gram/dL 2.7-4.2 ALBUMIN/GLOBULIN RATIO (test code = A/G) 0.75-1.50 CALCIUM (test code = CA) mg/dL 8.5-10.1 BILIRUBIN TOTAL (test code = BILT) mg/dL 0.0-1.0 SGOT/AST (test code = AST) IUnit/L 15-37 SGPT/ALT (test code = ALT) IUnit/L 12-78 ALKALINE PHOSPHATASE TOTAL (test code = ALKP) IUnit/L 45-117 [id number] 23:06:00* Test Item Value Reference Range Interpretation Comments LIPASE (test code = LIP) U/L 73.0-393.0 [id number] 23:06:00* Test Item Value Reference Range Interpretation Comments CKMB (test code = CKMBT) ng/mL 0-6.0 [id number] 23:06:00* Test Item Value Reference Range Interpretation Comments TROPONIN-I (test code = TROPI) ng/mL 0-0.045 - XR CHEST 2 [id number] 23:03:00 FAX: Amish Nur, [place]: St: [facility] FAX: Leonora Norton [phone] Name: KALYANI TALAVERA [facility] : 1955 Age/S: 63/F [address] [facility] Unit #: [id number] [place]: [place] [address] Phys: Leonora Goins MD Acct: [id number] Dis Date: Status: REG ER PHONE #: [phone] Exam Date: 10/30/2018 2241 FAX #: [phone] Reason: cp EXAMS: CPT CODE: [id number] XR CHEST 2 V [id number] REASON FOR EXAM: cp Exam Order Date: 10/30/2018 10:08 PM Ordering MSamantha: Leonora Goins MD PROCEDURE: - XR CHEST 2 V COMPARISON: FINDINGS: PA and lateral views of the chest show clear lungs without evidence of consolidation. No evidence of effusion. The heart size is minimally enlarged. Pulmonary vasculatures are minimally congested. The osseous structures are grossly intact. IMPRESSION: Minimal cardiomegaly and pulmonary venous congestion at 2303 Reported and signed by: Pelon Moreno M.D. CC: Lucille Land MD; Leonora Goins MD Technologist: Janeen Dunbar Trnscrd Date/Time/By: 10/30/2018 (7342) : By: LeanneVTL Orig Print D/T: S: 10/30/2018 (0679) PAGE 1 Signed Report GLUBED 2018-10-12 11:21:00* Test Item Value Reference Range Interpretation Comments GLUBED (test code = GLUBED) 189 mg/dL 74-106 H Performed by certified glue spreading machine operator at [facility] [id number] 10:37:00* Test Item Value Reference Range Interpretation Comments GLUBED (test code = GLUBED) 190 mg/dL 74-106 H Performed by certified glue spreading machine operator at [facility] [id number] 21:08:00* Test Item Value Reference Range Interpretation Comments GLUBED (test code = GLUBED) 156 mg/dL 74-106 H Performed by certified glue spreading machine operator at [facility] [id number] 16:01:00* Test Item Value Reference Range Interpretation Comments GLUBED (test code = GLUBED) 122 mg/dL 74-106 H Performed by certified glue spreading machine operator at [facility] [id number] 12:56:00* Test Item Value Reference Range Interpretation Comments GLUBED (test code = GLUBED) 173 mg/dL 74-106 H Performed by certified glue spreading machine operator at [facility] [id number] 07:28:00* Test Item Value Reference Range Interpretation Comments GLUBED (test code = GLUBED) 221 mg/dL 74-106 H Performed by certified glue spreading machine operator at [facility] [id number] 20:54:00* Test Item Value Reference Range Interpretation Comments GLUBED (test code = GLUBED) 261 mg/dL 74-106 H Performed by certified glue spreading machine operator at [facility] [id number] 15:03:00* Test Item Value Reference Range Interpretation Comments GLUBED (test code = GLUBED) 167 mg/dL 74-106 H Performed by certified glue spreading machine operator at [facility] [id number] 11:23:00* Test Item Value Reference Range Interpretation Comments GLUBED (test code = GLUBED) 206 mg/dL 74-106 H Performed by certified glue spreading machine operator at [facility] BASIC METABOLIC [id number] 07:57:00* Test Item Value Reference Range Interpretation Comments SODIUM (test code = NA) 138 mmol/L 136-145 N POTASSIUM (test code = K) 4.3 mmol/L 3.5-5.1 N CHLORIDE (test code = CL) 104.0 mmol/L 98-107 N CARBON DIOXIDE (test code = CO2) 30.0 mmol/L 21-32 N ANION GAP (test code = GAP) 8.3 10-20 L GLUCOSE (test code = GLU) 239 mg/dL 74-106 H BLOOD UREA NITROGEN (test code = BUN) 30 mg/dL 7-18 H GLOMERULAR FILTRATION RATE (test code = GFR) 56 mL/min >=60 Estimated GFR by using Modified MDRD formula.Chronic kidney disease is defined as either kidney damageor GFR <60 mL/min/1.73 m2 for >3 months. CREATININE (test code = CREAT) 1.00 mg/dL 0.55-1.02 N Note change in reference range due to change in reagent. BUN/CREATININE RATIO (test code = BUN/CREA) 30.0 10-20 H CALCIUM (test code = CA) 8.5 mg/dL 8.5-10.1 N [id number] 07:29:00* Test Item Value Reference Range Interpretation Comments GLUBED (test code = GLUBED) 239 mg/dL 74-106 H Performed by certified glue spreading machine operator at [facility] [id number] 05:00:00* Test Item Value Reference Range Interpretation Comments GLUBED (test code = GLUBED) 234 mg/dL 74-106 H Performed by certified glue spreading machine operator at [facility] [id number] 20:10:00* Test Item Value Reference Range Interpretation Comments GLUBED (test code = GLUBED) 204 mg/dL 74-106 H Performed by certified glue spreading machine operator at [facility] [id number] 17:08:00* Test Item Value Reference Range Interpretation Comments GLUBED (test code = GLUBED) 243 mg/dL 74-106 H Performed by certified glue spreading machine operator at [facility] T4 [id number] 14:42:00* Test Item Value Reference Range Interpretation Comments T4 FREE (test code = T4F) 7.60 ng/dL 0.76-1.46 H THYROID STIMULATING [id number] 14:42:00* Test Item Value Reference Range Interpretation Comments THYROID STIMULATING HORMONE (test code = TSH) 0.812 uIU/mL 0.36-3.7 4 N TSH REFERENCE RANGES: EUTHYROID: 0.35 - 4.3 mIU/mL HYPO : > 5.5 mIU/mL HYPER : < 0.35 mIU/mL T4 [id number] 14:03:00* Test Item Value Reference Range Interpretation Comments T4 FREE (test code = T4F) ng/dL 0.76-1.46 THYROID STIMULATING [id number] 14:03:00* Test Item Value Reference Range Interpretation Comments THYROID STIMULATING HORMONE (test code = TSH) 0.812 uIU/mL 0.36-3.7 4 N TSH REFERENCE RANGES: EUTHYROID: 0.35 - 4.3 mIU/mL HYPO : > 5.5 mIU/mL HYPER : < 0.35 mIU/mL [id number] 12:01:00* Test Item Value Reference Range Interpretation Comments GLUBED (test code = GLUBED) 232 mg/dL 74-106 H Performed by certified glue spreading machine operator at [facility] [id number] 07:31:00* Test Item Value Reference Range Interpretation Comments GLUBED (test code = GLUBED) 253 mg/dL 74-106 H Performed by certified glue spreading machine operator at [facility] BASIC METABOLIC [id number] 05:59:00* Test Item Value Reference Range Interpretation Comments SODIUM (test code = NA) 139 mmol/L 136-145 N POTASSIUM (test code = K) 4.6 mmol/L 3.5-5.1 N CHLORIDE (test code = CL) 108.0 mmol/L 98-107 H CARBON DIOXIDE (test code = CO2) 27.0 mmol/L 21-32 N ANION GAP (test code = GAP) 8.6 10-20 L GLUCOSE (test code = GLU) 311 mg/dL 74-106 H BLOOD UREA NITROGEN (test code = BUN) 32 mg/dL 7-18 H GLOMERULAR FILTRATION RATE (test code = GFR) 42 mL/min >=60 Estimated GFR by using Modified MDRD formula.Chronic kidney disease is defined as either kidney damageor GFR <60 mL/min/1.73 m2 for >3 months. CREATININE (test code = CREAT) 1.30 mg/dL 0.55-1.02 H Note change in reference range due to change in reagent. BUN/CREATININE RATIO (test code = BUN/CREA) 23.9 10-20 H CALCIUM (test code = CA) 8.4 mg/dL 8.5-10.1 L BASIC METABOLIC [id number] 05:56:00* Test Item Value Reference Range Interpretation Comments SODIUM (test code = NA) 139 mmol/L 136-145 N POTASSIUM (test code = K) 4.6 mmol/L 3.5-5.1 N CHLORIDE (test code = CL) 108.0 mmol/L 98-107 H CARBON DIOXIDE (test code = CO2) mmol/L 21-32 ANION GAP (test code = GAP) 10-20 GLUCOSE (test code = GLU) mg/dL 74-106 BLOOD UREA NITROGEN (test code = BUN) mg/dL 7-18 GLOMERULAR FILTRATION RATE (test code = GFR) mL/min >=60 CREATININE (test code = CREAT) mg/dL 0.55-1.02 BUN/CREATININE RATIO (test code = BUN/CREA) 10-20 CALCIUM (test code = CA) mg/dL 8.5-10.1 [id number] 03:37:00* Test Item Value Reference Range Interpretation Comments GLUBED (test code = GLUBED) 302 mg/dL 74-106 H Performed by certified glue spreading machine operator at [facility] T4 [id number] 20:00:00* Test Item Value Reference Range Interpretation Comments T4 FREE (test code = T4F) 0.97 ng/dL 0.76-1.46 N THYROID STIMULATING [id number] 20:00:00* Test Item Value Reference Range Interpretation Comments THYROID STIMULATING HORMONE (test code = TSH) 0.336 uIU/mL 0.36-3.7 4 L TSH REFERENCE RANGES: EUTHYROID: 0.35 - 4.3 mIU/mL HYPO : > 5.5 mIU/mL HYPER : < 0.35 mIU/mL [id number] 19:59:00* Test Item Value Reference Range Interpretation Comments GLYCOSYLATED HEMOGLOBIN (HA1C) (test code = GLYHGB) 9.7 % HbA1 4. 8-6.0 H ESTIMATED AVERAGE GLUCOSE (test code = EAG) 232 MG/DL [id number] 19:43:00* Test Item Value Reference Range Interpretation Comments GLUBED (test code = GLUBED) 301 mg/dL 74-106 H Performed by certified glue spreading machine operator at [facility] [id number] 17:38:00* Test Item Value Reference Range Interpretation Comments GLUBED (test code = GLUBED) 242 mg/dL 74-106 H Performed by certified glue spreading machine operator at [facility] [id number] 13:43:00* Test Item Value Reference Range Interpretation Comments TROPONIN-I (test code = TROPI) <0.015 ng/mL 0-0.045 N COMMENTS TO PATIENT EDUCATOR: COLLECT 3 HOURS AFTER PREVIOUS [id number] 13:19:00* Test Item Value Reference Range Interpretation Comments GLUBED (test code = GLUBED) 243 mg/dL 74-106 H Performed by certified glue spreading machine operator at [facility] [id number] 10:44:00* Test Item Value Reference Range Interpretation Comments TROPONIN-I (test code = TROPI) <0.015 ng/mL 0-0.045 N COMMENTS TO PATIENT EDUCATOR: COLLECT 3 HOURS AFTER PREVIOUS [id number] 08:17:00* Test Item Value Reference Range Interpretation Comments GLUBED (test code = GLUBED) 164 mg/dL 74-106 H Performed by certified glue spreading machine operator at [facility] BASIC METABOLIC [id number] 08:09:00* Test Item Value Reference Range Interpretation Comments SODIUM (test code = NA) 142 mmol/L 136-145 N POTASSIUM (test code = K) 3.8 mmol/L 3.5-5.1 N CHLORIDE (test code = CL) 110.0 mmol/L 98-107 H CARBON DIOXIDE (test code = CO2) 28.0 mmol/L 21-32 N ANION GAP (test code = GAP) 7.8 10-20 L GLUCOSE (test code = GLU) 39 mg/dL 74-106 LL Re sults called to [id number] by CARLA 10/08/18 0807Critical results verified and read back by Nurse? Y BLOOD UREA NITROGEN (test code = BUN) 28 mg/dL 7-18 H GLOMERULAR FILTRATION RATE (test code = GFR) 56 mL/min >=60 Estimated GFR by using Modified MDRD formula.Chronic kidney disease is defined as either kidney damageor GFR <60 mL/min/1.73 m2 for >3 months. CREATININE (test code = CREAT) 1.00 mg/dL 0.55-1.02 N Note change in reference range due to change in reagent. BUN/CREATININE RATIO (test code = BUN/CREA) 29.4 10-20 H CALCIUM (test code = CA) 8.5 mg/dL 8.5-10.1 N HEPATIC FUNCTION [id number] 08:09:00* Test Item Value Reference Range Interpretation Comments TOTAL PROTEIN (test code = PROT) 7.4 gram/dL 6.4-8.2 N ALBUMIN (test code = ALB) 3.3 g/dL 3.4-5.0 L GLOBULIN (test code = GLOB) 4.1 gram/dL 2.7-4.2 N ALBUMIN/GLOBULIN RATIO (test code = A/G) 0.8 0.75-1.50 N BILIRUBIN TOTAL (test code = BILT) 0.20 mg/dL 0.0-1.0 N BILIRUBIN DIRECT (test code = BILD) 0.07 mg/dL 0.0-0.20 N SGOT/AST (test code = AST) 20 IUnit/L 15-37 N SGPT/ALT (test code = ALT) 23 IUnit/L 12-78 N ALKALINE PHOSPHATASE TOTAL (test code = ALKP) 72 IUnit/L 45-117 N Note change in reference range due to change in reagent. [id number] 08:09:00* Test Item Value Reference Range Interpretation Comments LIPASE (test code = LIP) 70 U/L 73.0-393.0 L [id number] 08:09:00* Test Item Value Reference Range Interpretation Comments TROPONIN-I (test code = TROPI) <0.015 ng/mL 0-0.045 N PROCALCITONIN (PCT)2018-10-08 07:40:00* Test Item Value Reference Range Interpretation Comments PROCALCITONIN (PCT) (test code = PROCAL) < 0.05 ng/ml Concentration Interpretation (ng/mL) <0.51 Sepsis is not likely. Local bacterial infection is possible. (LOW RISK for progression to Sepsis) 0.51 - 2.00 Sepsis is possible, but other conditions are known to elevate PCT as well. (MODERATE RISK for progression to Sepsis) > 2.00 Sepsis is likely, unless other causes are known. (HIGH RISK for progression to Severe Sepsis or Septic Shock) 10.00 High likelihood of Severe Sepsis or Septic or higher Shock. *Increased PCT levels may not always be related to systemic bacterial infection.*Low PCT levels do not automatically exclude the presence of bacterial infection.*All results should be interpreted taking into account the patients history. B-TYPE NATRIURETIC [id number] 06:52:00* Test Item Value Reference Range Interpretation Comments B-TYPE NATRIURETIC PEPTIDE (test code = BNP) 10.07 pgram/mL 0-100 N [id number] 06:43:00* Test Item Value Reference Range Interpretation Comments GLUBED (test code = GLUBED) 36 mg/dL 74-106 LL Performed by certified glue spreading machine operator at [facility] URINALYSIS [id number] 06:19:00* Test Item Value Reference Range Interpretation Comments UA COLOR (test code = COLU) LIGHT YELLOW YELLOW UA APPEARANCE (test code = APPU) CLEAR CLEAR UA GLUCOSE DIPSTICK (test code = DGLUU) NEGATIVE mg/dL NEGATIVE UA BILIRUBIN DIPSTICK (test code = BILU) NEGATIVE mg/dL NEGATIVE UA KETONE DIPSTICK (test code = KETU) Negative mg/dL NEGATIVE UA SPECIFIC GRAVITY (test code = SGU) 1.017 1.001-1.035 UA BLOOD DIPSTICK (test code = MONICA) Negative NEGATIVE UA PH DIPSTICK (test code = VIVEK) 5.0 5.0-8.0 UA PROTEIN DIPSTICK (test code = PROU) Negative mg/dL NEGATIVE UA UROBILINIOGEN DIPSTICK (test code = URO) NEGATIVE mg/dL NEGATIVE UA NITRITE DIPSTICK (test code = GOYO) NEGATIVE NEGATIVE UA LEUKOCYTE ESTERASE W REFLEX (test code = LEUUR) NEGATIVE NEG ATIVE UA WBC (test code = WBCU) 0-5 #/HPF 0-5 UA RBC (test code = RBCU) 0-2 #/HPF 0-5 UA EPITHELIAL CELLS (test code = EPIU) FEW per HPF FEW UA MUCUS (test code = MUCU) FEW #/LPF FEW Urine Source? Clean CatchLACTIC [id number] 06:15:00* Test Item Value Reference Range Interpretation Comments LACTIC ACID (test code = LACT) 0.9 mmol/L 0.4-1.9 N - XR CHEST 1 [id number] 05:44:00 FAX: Amish Nur, [place]: St: REG Name: KALYANI CATES [facility] : [birth year] Age/S: 63/F [address] [facility] Unit #: [id number] Loc: [place] [address] Phys: Elena Cedeño MD Acct: [id number] Dis Date: Status: REG ER PHONE #: [phone] Exam Date: 10/08/2018 0531 FAX #: [phone] Reason: CHEST PAIN EXAMS: CPT CODE: [id number] XR CHEST 1 V [id number] HISTORY: Chest pain. Location: C3 COMPARISON:09/18/2017 FINDINGS: There is mild cardiomegaly. There is elevation of the right hemid iaphragm. No pneumothorax. No focal consolidation. No other changes. IMPRESSION: 1. Elevated right hemidiaphragm. Mi ld cardiomegaly. No other acute abnormality. at 5973 Report ed and signed by: Kizzy Dietrich MD CC: Lucille Nur MD Technologist: Marcelino Reid RT(R) Trnscrd Date/Time/By: 10/08/2018 (0564) : By: Festus XC2 Orig Print D/T: S: 10/08/2018 (7489) PAGE 1 Signed Report PROTHROMBIN [id number] 05:38:00* Test Item Value Reference Range Interpretation Comments PROTHROMBIN TIME PATIENT (test code = PTP) 12.2 seconds 9.0-14.0 N INTERNATIONAL NORMAL RATIO (test code = INR) 1.0 0.8-1.2 N The therapeutic range for oral anticoagulant therapy formost indications is an international normalized ratio (INR)of between 2.0 and 3.0. The recommended therapeutic INRrange for various clinical situations is listed below: Clinical Situation INR range Pulmonary e mbolism treatment (2.0-3.0)Venous thrombosis treatmentVenous thrombosis prophylaxis (high risk surgery)Prevention of systemic embolism from: Acute myocardial infarction Valvular heart disease Atrial fibrillation Mechanical prosthetic heart valves (2.5-3.5) IS PATIENT ON ANTICOAGULANTS? NTHROMBOPLASTIN TIME [id number] 05:38:00* Test Item Value Reference Range Interpretation Comments THROMBOPLASTIN TIME PARTIAL (test code = PTT) 32.9 seconds 25.0-36. 5 N IS PATIENT ON ANTICOAGULANTS? [id number] 05:38:00* Test Item Value Reference Range Interpretation Comments D-DIMER (test code = DDIMER) 226.00 ng/mLFEU 0-500 N Clinical Cut-off value for D-Dimer is 500 ng/mL FEU. Comment: The [employer] D-Dimer assay is intended for use asan aid in the diagnosis of venous thromboembolism (VTE)[deep vein thrombosis (DVT) or pulmonary embolism (PE)].The measurement of D-Dimer should not be used as an aid inthe diagnosis of VTE, in patient with: -Therapeutic dose anticoagulant therapy for >24 hours -Fibrinolytic therapy within previous 7 days -Trauma or surgery within previous 4 weeks -Disseminated malignancies -Aortic aneurysm -Sepsis, severe infections, pneumonia, severe skin infections -Liver cirrhosis - IS PATIENT ON ANTICOAGULANTS? [facility] W/O [id number] 05:27:00* Test Item Value Reference Range Interpretation Comments WHITE BLOOD CELL (test code = WBC) 5.3 K/mm3 4.5-12.5 N RED BLOOD CELL (test code = RBC) 4.62 mill/mm3 3.7-5.2 N HEMOGLOBIN (test code = HGB) 11.1 gram/dL 11.5-15.5 L HEMATOCRIT (test code = HCT) 38.7 % 36.0-46.0 N MEAN CELL VOLUME (test code = MCV) 83.8 fL 80-98 N MEAN CELL HGB (test code = MCH) 24.0 picogram 27.0-33.0 L MEAN CELL HGB CONCETRATION (test code = MCHC) 28.7 gram/dL 33.0-36. 0 L RED CELL DISTRIBUTION WIDTH (test code = RDW) 15.9 % 11.6-16. 2 N PLATELET COUNT (test code = PLT) 201 K/mm3 150-450 N MEAN PLATELET VOLUME (test code = MPV) 10.6 fL 6.7-11.0 N ARTERIAL BLOOD [id number] 05:25:00* Test Item Value Reference Range Interpretation Comments ARTERIAL BLOOD GAS PH (test code = PHA) 7.37 7.35-7.45 N ARTERIAL BLOOD GAS PCO2 (test code = PCO2A) 47.1 mm Hg 35-45 H ARTERIAL BLOOD GAS PO2 (test code = PO2A) 97.5 mmHg 80-100 N BICARBONATE TOTAL HCO3 (test code = HCO3) 26.8 mmol/L 23.0-27.0 N BASE EXCESS (test code = REBA) 1.1 mmol/L -3.0-5.0 N ABG O2 SATURATION (test code = SATA) 96.8 % 90.0-98.0 N ABG TYPE (test code = TYPEA) Arterial FIO2 (test code = FIO2A) 28.0 ABG SITE (test code = SITEA) Rt RADIAL ARTERY MODIFIED ALLENS (test code = MODALL) Yes CHECK PERFORMED HEMATOCRIT (test code = HCT/ABG) 36 % 35-47 N TOTAL HGB (test code = THB) 12.1 gram/dL 11.5-15.5 N HGB O2 SAT (test code = HBOSAT) 95.8 % 94.00-98.00 N CARBOXYHEMOGLOBIN (test code = HOHGBT) 0.6 %totalHg 0.5-1.5 N METHEMOGLOBIN (test code = METHGB) 0.4 % 0.0-1.50 N O2 CONTENT (test code = O2CT) 16.4 % vol 18.0-22.0 L CBC W/O [id number] 05:20:00* Test Item Value Reference Range Interpretation Comments WHITE BLOOD CELL (test code = WBC) K/mm3 4.5-12.5 RED BLOOD CELL (test code = RBC) mill/mm3 3.7-5.2 HEMOGLOBIN (test code = HGB) gram/dL 11.5-15.5 HEMATOCRIT (test code = HCT) 38.7 % 36.0-46.0 N MEAN CELL VOLUME (test code = MCV) fL 80-98 MEAN CELL HGB (test code = MCH) picogram 27.0-33.0 MEAN CELL HGB CONCETRATION (test code = MCHC) gram/dL 33.0-36. 0 RED CELL DISTRIBUTION WIDTH (test code = RDW) % 11.6-16. 2 PLATELET COUNT (test code = PLT) K/mm3 150-450 MEAN PLATELET VOLUME (test code = MPV) fL 6.7-11.0 [id number] 05:06:00* Test Item Value Reference Range Interpretation Comments GLUBED (test code = GLUBED) 73 mg/dL 74-106 L Performed by certified glue spreading machine operator at [facility] FOREARM RIGHT 2 [id number] 20:47:00 [facility] [address] [address] Patient Name: KALYANI TALAVREA MR #: [id number] : 1955 Age/Sex: 63/F Req #: [id number] Adm Physician: Ordered by: FLO TOLBERT MD Report #: [id number] Location: ER Room/Bed: Procedure: [id number] DX /FOREARM RIGHT 2 VIEW Exam Date: 07/30/18 Exam Time: 1850 REPORT STATUS: Signed FORE ARM RIGHT 2 VIEW - 3 views HISTORY: Pain COMPARISON: None available. FINDINGS: Bones: No acute displaced fracture. Osseous alignment is within normal limits. Joints: The joint spaces are well-maintained. Soft tissues: The soft tissues appear unremarkable. IMPRESSION: No acute osseous abnormality. Signed by: Dr. Chai Tran M.D. on 8:49 PM Dictated By: CHRISTINE TRAN MD, MD 48 Transcribed By: JIM on 07/30/18 2 049 COPY TO: FLO TOLBERT MD Bedside [id number] 14:02:00 * Test Item Value Reference Range Interpretation Comments Bedside Glucose (test code = 62482-2) 68 70-120 L Meter ID: [id number] [facility] Glucose 2018-07-11 14:02:00* Test Item Value Reference Range Interpretation Comments Bedside Glucose (test code = 48221-4) 68 70-120 L Meter ID: [id number] [facility] Glucose 2018-07-11 14:02:00* Test Item Value Reference Range Interpretation Comments Bedside Glucose (test code = 78146-2) 68 70-120 L Meter ID: [id number] [facility] [id number] 12:44:00* Test Item Value Reference Range Interpretation Comments B-Type Natriuretic Peptide (test code = 06528-2) 43.1 0-100 [facility] [id number] 12:44:00* Test Item Value Reference Range Interpretation Comments B-Type Natriuretic Peptide (test code = 14064-4) 43.1 0-100 [facility] FAC/PARANAS [id number] 12:32:00 [facility] [address] [place] [address] Patient Name: KALYANI TALAVERA MR #: [id number] : 1955 Age/Sex: 63/F Req #: [id number] Adm Physician: Ordered by: ELIESER DAWSON MD Report #: [id number] Location: ER Room/Bed: Procedure: [id number] CT/CT MAXIO FAC/PARANAS WO Exam Date: 07/11/18 Exam Time: 1100 REPORT STATUS: Signed CT MAXIO FAC/PARANAS WO HISTORY: Fall COMPARISON: Concurrent head CT, head CT 08/24/2017 TECHNIQUE: Axial CT images through the face were obtai rainer without contrast. Coronal/sagittal reformations were created. One or more of the following dose reduction techniques were used: Automated exposure cont rol, adjustment of the mA and/or kV according to patient size, and/or utilizat ion of iterative reconstruction technique. DISCUSSION: There are minima lly displaced fractures of the bilateral upper nasal bones and anterior nasal spine (anterior maxilla). There is associated mild local soft tissue swelling/ edema. No additional acute fracture is seen. No destructive osseous lesions are seen. The orbits are intact. Intraorbital contents are grossly unremar kable. The paranasal sinuses are clear. Small bilateral palatine tonsi lloliths are present. Mild bilateral carotid bulb calcifications are present. Partially visualized hyperdense nodule in the right visceral space of the mid neck may be the upper right thyroid lobe. IMPRESSION: Minimally displaced fractures of the bilateral upper nasal bones and anterior nasal spine. S igned by: Dr. Andrei Lutz M.D. on 07/11/2018 12:40 PM Dictated By: ADOLFO LUTZ MD 124 0 Transcribed By: JIM on 07/11/18 1240 COPY TO: ELIESER DAWSON MD CT BRAIN [id number] 12:26:00 [place] [address] Patient Name: KALYANI TALAVERA MR #: [id number] : 1955 Age/Sex: 63/F Req #: [id number] Adm Physician: Ordered by: ELIESER DAWSON MD Report #: [id number] Location: ER Room/Bed: Procedure: [id number] CT/CT BRAIN WO Exam Date: 07/11/18 Exam Time: 1100 REPORT STATUS: Signed CT BRAIN WO HISTORY: Fall COMPARISON: Head CT 08/24/2017 TECHNIQUE: Noncon trast axial scans were obtained from skull base to the vertex. Coronal and sa gittal reconstructions obtained from the axial data. One or more of the follo wing dose reduction techniques were used: Automated exposure control, adjustme nt of the mA and/or kV according to patient size, and/or utilization of iterat mary reconstruction technique. Beam hardening artifacts obscure some details. DISCUSSION: Scalp/Skull: Unremarkable. Brain sulci: Appropriate for p atient's age. Ventricles: Normal in size and configuration. No hydrocephalus. Extra-axial spaces: No masses or fluid collections. Parenchyma: Mild carotid siphon and vertebral artery calcifications are present. No masses , hemorrhage, or large vascular territory acute infarct. Dural sinuses: No abnormal densities. Sellar/Suprasellar region: Partially empty sella. Skull base: Intact. Incidental findings: None. IMPRESSION: No acute intra cranial abnormalities. Signed by: Dr. Andrei Lutz M.D. on 018 12:31 PM Dictated By: ANDREI LUTZ MD 1231 Transcribed By: JIM on 07/11/18 1231 COPY TO: ELIESER DAWSON MD Lactic Acid [id number] 12:24:00* Test Item Value Reference Range Interpretation Comments Lactic Acid Level (test code = Lactic Acid Level) 7.1 4.5- 19.8 [facility] Iyqby8194-76-69 12:24:00* Test Item Value Reference Range Interpretation Comments Lactic Acid Level (test code = Lactic Acid Level) 7.1 4.5- 19.8 [facility] Tssnb2486-13-98 12:24:00* Test Item Value Reference Range Interpretation Comments Lactic Acid Level (test code = Lactic Acid Level) 7.1 4.5- 19.8 [facility] Acid Ssuyp6350-36-10 12:24:00* Test Item Value Reference Range Interpretation Comments Lactic Acid Level (test code = Lactic Acid Level) 7.1 4.5- 19.8 [facility] Jqzku7397-91-75 12:24:00* Test Item Value Reference Range Interpretation Comments Lactic Acid Level (test code = Lactic Acid Level) 7.1 4.5- 19.8 [facility] Jaeoq2254-89-73 12:24:00* Test Item Value Reference Range Interpretation Comments Lactic Acid Level (test code = Lactic Acid Level) 7.1 4.5- 19.8 [facility] LancasterLactic Acid Yqzdk9387-16-80 12:24:00* Test Item Value Reference Range Interpretation Comments Lactic Acid Level (test code = Lactic Acid Level) 7.1 4.5- 19.8 [facility] LancasterLactic Acid Ywcsq2508-35-45 12:24:00* Test Item Value Reference Range Interpretation Comments Lactic Acid Level (test code = Lactic Acid Level) 7.1 4.5- 19.8 [facility] LancasterLactic Acid Llloi0798-56-42 12:24:00* Test Item Value Reference Range Interpretation Comments Lactic Acid Level (test code = Lactic Acid Level) 7.1 4.5- 19.8 [facility] LancasterLactic Acid Cojpy0015-61-76 12:24:00* Test Item Value Reference Range Interpretation Comments Lactic Acid Level (test code = Lactic Acid Level) 7.1 4.5- 19.8 [facility] LancasterCreatine Kinase [id number] 12:17:00* Test Item Value Reference Range Interpretation Comments Creatine Kinase MB (test code = 58513-4) 2.60 0-5.0 [facility] [id number] 12:17:00* Test Item Value Reference Range Interpretation Comments Troponin I (test code = BPX3432) < 0.001 0-0.300 [facility] LancasterCreatine Kinase [id number] 12:17:00* Test Item Value Reference Range Interpretation Comments Creatine Kinase MB (test code = 13847-4) 2.60 0-5.0 [facility] [id number] 12:17:00* Test Item Value Reference Range Interpretation Comments Troponin I (test code = RTX3975) < 0.001 0-0.300 [facility] LancasterActivated Partial Thromboplast Time 2018-07-11 12:09:00* Test Item Value Reference Range Interpretation Comments Activated Partial Thromboplast Time (test code = 50432-4) 20.8 23.8-35.5 L [facility]odium Mijus6306-31-39 12:09:00* Test Item Value Reference Range Interpretation Comments Sodium Level (test code = 2951-2) 141 136-145 [facility] LancasterPotassium Uahef4519-70-42 12:09:00* Test Item Value Reference Range Interpretation Comments Potassium Level (test code = 2823-3) 4.5 3.5-5.1 [facility] LancasterChloride Vtsqz2427-85-48 12:09:00* Test Item Value Reference Range Interpretation Comments Chloride Level (test code = 2075-0) 110 98-107 H [facility] LancasterCarbon Dioxide Meooj6765-91-55 12:09:00* Test Item Value Reference Range Interpretation Comments Carbon Dioxide Level (test code = 2028-9) 22 22-29 [facility] LancasterAnion Hjm6781-50-69 12:09:00* Test Item Value Reference Range Interpretation Comments Anion Gap (test code = 55991-1) 13.5 8-16 [facility] LancasterBlood Urea Akkepqiw4633-75-20 12:09:00* Test Item Value Reference Range Interpretation Comments Blood Urea Nitrogen (test code = 3094-0) 28 7-26 H [facility] LancasterCreatinine2018-12-19 12:09:00* Test Item Value Reference Range Interpretation Comments Creatinine (test code = 2160-0) 0.92 0.57-1.11 [facility] LancasterBUN/Creatinine Ovtoi9592-44-91 12:09:00* Test Item Value Reference Range Interpretation Comments BUN/Creatinine Ratio (test code = 3097-3) 30 6-25 H [facility] LancasterEstimat Glomerular Filtration Rate 2018-07-11 12:09:00* Test Item Value Reference Range Interpretation Comments Estimat Glomerular Filtration Rate (test code = 126512029) > 60 >60 Ranges were taken from the National Kidney Disease Education Program and the [facility] literature.Reference ranges:60 or greater: Nyfzhv47-61 ( for 3 consecutive months): Chronic kidney disease 15 or less: Kidney failureCrescent Medical Center LancasterGlucose Llpbh7115-12-58 12:09:00* Test Item Value Reference Range Interpretation Comments Glucose Level (test code = ITU0203) 62 74-118 L [facility] LancasterCalcium Ysgpi1686-81-40 12:09:00* Test Item Value Reference Range Interpretation Comments Calcium Level (test code = 68254-0) 9.2 8.4-10.2 [facility] LancasterTotal Gqaamqhnl9391-70-02 12:09:00* Test Item Value Reference Range Interpretation Comments Total Bilirubin (test code = 1975-2) 0.3 0.2-1.2 [facility] LancasterAspartate Amino Transf (AST/SGOT) 2018-07-11 12:09:00* Test Item Value Reference Range Interpretation Comments Aspartate Amino Transf (AST/SGOT) (test code = Aspartate Amino Transf (AST/SGOT)) 17 5-34 [facility] LancasterAlanine Aminotransferase (ALT/SGPT) 2018-07-11 12:09:00* Test Item Value Reference Range Interpretation Comments Alanine Aminotransferase (ALT/SGPT) (test code = 1742-6) 18 0-55 [facility] Hzkxhan7626-00-71 12:09:00* Test Item Value Reference Range Interpretation Comments Total Protein (test code = 2885-2) 6.9 6.5-8.1 [facility] LancasterAlbumin2018-12-19 12:09:00* Test Item Value Reference Range Interpretation Comments Albumin (test code = 1751-7) 3.6 3.5-5.0 [facility] LancasterGlobulin2018-12-19 12:09:00* Test Item Value Reference Range Interpretation Comments Globulin (test code = 31380-4) 3.3 2.3-3.5 [facility] LancasterAlbumin/Globulin Pwail5472-88-33 12:09:00 * Test Item Value Reference Range Interpretation Comments Albumin/Globulin Ratio (test code = 1759-0) 1.1 0.8-2.0 [facility] LancasterAlkaline Ygrxwphvxkn8394-35-94 12:09:00* Test Item Value Reference Range Interpretation Comments Alkaline Phosphatase (test code = 6768-6) 55 40-150 [facility] LancasterCreatine Nmmmmi8978-63-84 12:09:00* Test Item Value Reference Range Interpretation Comments Creatine Kinase (test code = 2157-6) 71 29-168 [facility] LancasterActivated Partial Thromboplast Time 2018-07-11 12:09:00* Test Item Value Reference Range Interpretation Comments Activated Partial Thromboplast Time (test code = 87902-0) 20.8 23.8-35.5 L [facility]odium Fvzep0877-16-32 12:09:00* Test Item Value Reference Range Interpretation Comments Sodium Level (test code = 2951-2) 141 136-145 [facility] LancasterPotassium Molki9019-53-18 12:09:00* Test Item Value Reference Range Interpretation Comments Potassium Level (test code = 2823-3) 4.5 3.5-5.1 [facility] LancasterChloride Xdxfm2172-11-56 12:09:00* Test Item Value Reference Range Interpretation Comments Chloride Level (test code = 2075-0) 110 98-107 H [facility] LancasterCarbon Dioxide Nkrty8566-83-07 12:09:00* Test Item Value Reference Range Interpretation Comments Carbon Dioxide Level (test code = 2028-9) 22 22-29 [facility] LancasterAnion Ghr8599-81-33 12:09:00* Test Item Value Reference Range Interpretation Comments Anion Gap (test code = 54928-4) 13.5 8-16 [facility] LancasterBlood Urea Xivppysl0920-74-44 12:09:00* Test Item Value Reference Range Interpretation Comments Blood Urea Nitrogen (test code = 3094-0) 28 7-26 H [facility] LancasterCreatinine2018-12-19 12:09:00* Test Item Value Reference Range Interpretation Comments Creatinine (test code = 2160-0) 0.92 0.57-1.11 [facility] LancasterBUN/Creatinine Plkze8586-35-73 12:09:00* Test Item Value Reference Range Interpretation Comments BUN/Creatinine Ratio (test code = 3097-3) 30 6-25 H [facility] LancasterEstimat Glomerular Filtration Rate 2018-07-11 12:09:00* Test Item Value Reference Range Interpretation Comments Estimat Glomerular Filtration Rate (test code = 321067478) > 60 >60 Ranges were taken from the National Kidney Disease Education Program and the [facility] Foundation literature.Reference ranges:60 or greater: Kxsrrw06-49 ( for 3 consecutive months): Chronic kidney disease 15 or less: Kidney failureCrescent Medical Center LancasterGlucose Ofico4826-11-90 12:09:00* Test Item Value Reference Range Interpretation Comments Glucose Level (test code = YUS6284) 62 74-118 L [facility] LancasterCalcium Aqnhb8929-77-85 12:09:00* Test Item Value Reference Range Interpretation Comments Calcium Level (test code = 55655-2) 9.2 8.4-10.2 [facility] LancasterTotal Bcjrzqgvd0386-08-91 12:09:00* Test Item Value Reference Range Interpretation Comments Total Bilirubin (test code = 1975-2) 0.3 0.2-1.2 [facility] LancasterAspartate Amino Transf (AST/SGOT) 2018-07-11 12:09:00* Test Item Value Reference Range Interpretation Comments Aspartate Amino Transf (AST/SGOT) (test code = Aspartate Amino Transf (AST/SGOT)) 17 5-34 [facility] LancasterAlanine Aminotransferase (ALT/SGPT) 2018-07-11 12:09:00* Test Item Value Reference Range Interpretation Comments Alanine Aminotransferase (ALT/SGPT) (test code = 1742-6) 18 0-55 [facility] LancasterTotal Pwnnyhu9625-46-77 12:09:00* Test Item Value Reference Range Interpretation Comments Total Protein (test code = 2885-2) 6.9 6.5-8.1 [facility] LancasterAlbumin2018-12-19 12:09:00* Test Item Value Reference Range Interpretation Comments Albumin (test code = 1751-7) 3.6 3.5-5.0 [facility] LancasterGlobulin2018-12-19 12:09:00* Test Item Value Reference Range Interpretation Comments Globulin (test code = 44921-1) 3.3 2.3-3.5 [facility] LancasterAlbumin/Globulin Mkqkj6525-21-47 12:09:00 * Test Item Value Reference Range Interpretation Comments Albumin/Globulin Ratio (test code = 1759-0) 1.1 0.8-2.0 [facility] LancasterAlkaline Xnadlhvpayq8523-24-01 12:09:00* Test Item Value Reference Range Interpretation Comments Alkaline Phosphatase (test code = 6768-6) 55 40-150 [facility] LancasterCreatine Afbrti4311-39-50 12:09:00* Test Item Value Reference Range Interpretation Comments Creatine Kinase (test code = 2157-6) 71 29-168 [facility] LancasterActivated Partial Thromboplast Time 2018-07-11 12:09:00* Test Item Value Reference Range Interpretation Comments Activated Partial Thromboplast Time (test code = 85802-8) 20.8 23.8-35.5 L [facility] LancasterProthrombin Odzz1423-51-21 11:59:00* Test Item Value Reference Range Interpretation Comments Prothrombin Time (test code = 5902-2) 13.5 11.9-14.5 [facility] LancasterProthromb Time International Ratio 2018-07-11 11:59:00* Test Item Value Reference Range Interpretation Comments Prothromb Time International Ratio (test code = 6301-6) 0.95 Oral Anticoagulant Therapy INR Values:1. Low Intensity Therapy 1.5 - 2.02 . Moderate Intensity Therapy 2.0 - 3.03. High Intensity Therapy(1) 2.5 - 3. 54. High Intensity Therapy(2) 3.0 - 4.05. Panic Value INR > 5.0 [facility] LancasterProthrombin Jfag3740-50-59 11:59:00* Test Item Value Reference Range Interpretation Comments Prothrombin Time (test code = 5902-2) 13.5 11.9-14.5 [facility] LancasterProthromb Time International Ratio 2018-07-11 11:59:00* Test Item Value Reference Range Interpretation Comments Prothromb Time International Ratio (test code = 6301-6) 0.95 Oral Anticoagulant Therapy INR Values:1. Low Intensity Therapy 1.5 - 2.02 . Moderate Intensity Therapy 2.0 - 3.03. High Intensity Therapy(1) 2.5 - 3. 54. High Intensity Therapy(2) 3.0 - 4.05. Panic Value INR > 5.0 [facility] LancasterProthrombin Yaqf3063-06-85 11:59:00* Test Item Value Reference Range Interpretation Comments Prothrombin Time (test code = 5902-2) 13.5 11.9-14.5 [facility] LancasterProthromb Time International Ratio 2018-07-11 11:59:00* Test Item Value Reference Range Interpretation Comments Prothromb Time International Ratio (test code = 6301-6) 0.95 Oral Anticoagulant Therapy INR Values:1. Low Intensity Therapy 1.5 - 2.02 . Moderate Intensity Therapy 2.0 - 3.03. High Intensity Therapy(1) 2.5 - 3. 54. High Intensity Therapy(2) 3.0 - 4.05. Panic Value INR > 5.0 [facility] LancasterWhite Blood Fcmuv8361-64-92 11:54:00* Test Item Value Reference Range Interpretation Comments White Blood Count (test code = 6690-2) 6.79 4.8-10.8 [facility] LancasterRed Blood Bvhbb3388-74-02 11:54:00* Test Item Value Reference Range Interpretation Comments Red Blood Count (test code = 789-8) 4.38 3.6-5.1 [facility] LancasterHemoglobin2018-12-19 11:54:00* Test Item Value Reference Range Interpretation Comments Hemoglobin (test code = 98675-0) 11.4 12.0-16.0 L [facility] LancasterHematocrit2018-12-19 11:54:00* Test Item Value Reference Range Interpretation Comments Hematocrit (test code = 4544-3) 38.1 34.2-44.1 [facility] LancasterMean Corpuscular Gdtrgf1815-41-56 11:54:00* Test Item Value Reference Range Interpretation Comments Mean Corpuscular Volume (test code = 787-2) 87.0 81-99 [facility] LancasterMean Corpuscular Hcngpykxxl1345-12-76 11:54:00* Test Item Value Reference Range Interpretation Comments Mean Corpuscular Hemoglobin (test code = 785-6) 26.0 28-32 L [facility] LancasterMean Corpuscular Hemoglobin Concent 2018-07-11 11:54:00* Test Item Value Reference Range Interpretation Comments Mean Corpuscular Hemoglobin Concent (test code = 786-4) 29.9 31-35 L [facility] LancasterRed Cell Distribution Lurlx3917-87-42 11:54:00* Test Item Value Reference Range Interpretation Comments Red Cell Distribution Width (test code = 79660-4) 16.0 11.7 -14.4 H [facility] LancasterPlatelet Twauf9887-61-20 11:54:00* Test Item Value Reference Range Interpretation Comments Platelet Count (test code = 777-3) 204 140-360 [facility] LancasterNeutrophils (%) (Auto)2018-07-11 11:54:00 * Test Item Value Reference Range Interpretation Comments Neutrophils (%) (Auto) (test code = 42855-0) 76.3 38.7-80.0 [facility] LancasterLymphocytes (%) (Auto)2018-07-11 11:54:00 * Test Item Value Reference Range Interpretation Comments Lymphocytes (%) (Auto) (test code = 736-9) 10.3 18.0-39.1 L [facility] LancasterMonocytes (%) (Auto)2018-07-11 11:54:00* Test Item Value Reference Range Interpretation Comments Monocytes (%) (Auto) (test code = 5905-5) 5.9 4.4-11.3 [facility] LancasterEosinophils (%) (Auto)2018-07-11 11:54:00 * Test Item Value Reference Range Interpretation Comments Eosinophils (%) (Auto) (test code = 713-8) 2.7 0.0-6.0 [facility] LancasterBasophils (%) (Auto)2018-07-11 11:54:00* Test Item Value Reference Range Interpretation Comments Basophils (%) (Auto) (test code = 706-2) 1.0 0.0-1.0 [facility] LancasterIM GRANULOCYTES %2018-07-11 11:54:00* Test Item Value Reference Range Interpretation Comments IM GRANULOCYTES % (test code = IM GRANULOCYTES %) 3.8 0.0- 1.0 H [facility] LancasterNeutrophils # (Auto)2018-07-11 11:54:00* Test Item Value Reference Range Interpretation Comments Neutrophils # (Auto) (test code = 751-8) 5.2 2.1-6.9 [facility] LancasterLymphocytes # (Auto)2018-07-11 11:54:00* Test Item Value Reference Range Interpretation Comments Lymphocytes # (Auto) (test code = 60548-9) 0.7 1.0-3.2 L [facility] LancasterMonocytes # (Auto)2018-07-11 11:54:00* Test Item Value Reference Range Interpretation Comments Monocytes # (Auto) (test code = 742-7) 0.4 0.2-0.8 [facility] LancasterEosinophils # (Auto)2018-07-11 11:54:00* Test Item Value Reference Range Interpretation Comments Eosinophils # (Auto) (test code = 711-2) 0.2 0.0-0.4 [facility] LancasterBasophils # (Auto)2018-07-11 11:54:00* Test Item Value Reference Range Interpretation Comments Basophils # (Auto) (test code = 704-7) 0.1 0.0-0.1 [facility] LancasterAbsolute Immature Granulocyte (auto 2018-07-11 11:54:00* Test Item Value Reference Range Interpretation Comments Absolute Immature Granulocyte (auto (joseph t code = Absolute Immature Granulocyte (auto) 0.26 0-0.1 H [facility] LancasterWhite Blood Zbzsz8575-60-64 11:54:00* Test Item Value Reference Range Interpretation Comments White Blood Count (test code = 6690-2) 6.79 4.8-10.8 [facility] LancasterRed Blood Yjydz3505-12-09 11:54:00* Test Item Value Reference Range Interpretation Comments Red Blood Count (test code = 789-8) 4.38 3.6-5.1 [facility] LancasterHemoglobin2018-12-19 11:54:00* Test Item Value Reference Range Interpretation Comments Hemoglobin (test code = 26633-0) 11.4 12.0-16.0 L [facility] LancasterHematocrit2018-12-19 11:54:00* Test Item Value Reference Range Interpretation Comments Hematocrit (test code = 4544-3) 38.1 34.2-44.1 [facility] LancasterMean Corpuscular Uobacz3672-12-28 11:54:00* Test Item Value Reference Range Interpretation Comments Mean Corpuscular Volume (test code = 787-2) 87.0 81-99 [facility] LancasterMean Corpuscular Ibmhnrjkeo1681-56-29 11:54:00* Test Item Value Reference Range Interpretation Comments Mean Corpuscular Hemoglobin (test code = 785-6) 26.0 28-32 L [facility] LancasterMean Corpuscular Hemoglobin Concent 2018-07-11 11:54:00* Test Item Value Reference Range Interpretation Comments Mean Corpuscular Hemoglobin Concent (test code = 786-4) 29.9 31-35 L [facility] LancasterRed Cell Distribution Zmvmm2231-70-46 11:54:00* Test Item Value Reference Range Interpretation Comments Red Cell Distribution Width (test code = 20205-1) 16.0 11.7 -14.4 H [facility] LancasterPlatelet Fwfud2727-17-99 11:54:00* Test Item Value Reference Range Interpretation Comments Platelet Count (test code = 777-3) 204 140-360 [facility] LancasterNeutrophils (%) (Auto)2018-07-11 11:54:00 * Test Item Value Reference Range Interpretation Comments Neutrophils (%) (Auto) (test code = 87963-1) 76.3 38.7-80.0 [facility] LancasterLymphocytes (%) (Auto)2018-07-11 11:54:00 * Test Item Value Reference Range Interpretation Comments Lymphocytes (%) (Auto) (test code = 736-9) 10.3 18.0-39.1 L [facility] LancasterMonocytes (%) (Auto)2018-07-11 11:54:00* Test Item Value Reference Range Interpretation Comments Monocytes (%) (Auto) (test code = 5905-5) 5.9 4.4-11.3 [facility] LancasterEosinophils (%) (Auto)2018-07-11 11:54:00 * Test Item Value Reference Range Interpretation Comments Eosinophils (%) (Auto) (test code = 713-8) 2.7 0.0-6.0 [facility] LancasterBasophils (%) (Auto)2018-07-11 11:54:00* Test Item Value Reference Range Interpretation Comments Basophils (%) (Auto) (test code = 706-2) 1.0 0.0-1.0 [facility] LancasterIM GRANULOCYTES %2018-07-11 11:54:00* Test Item Value Reference Range Interpretation Comments IM GRANULOCYTES % (test code = IM GRANULOCYTES %) 3.8 0.0- 1.0 H [facility] LancasterNeutrophils # (Auto)2018-07-11 11:54:00* Test Item Value Reference Range Interpretation Comments Neutrophils # (Auto) (test code = 751-8) 5.2 2.1-6.9 [facility] LancasterLymphocytes # (Auto)2018-07-11 11:54:00* Test Item Value Reference Range Interpretation Comments Lymphocytes # (Auto) (test code = 33478-3) 0.7 1.0-3.2 L [facility] LancasterMonocytes # (Auto)2018-07-11 11:54:00* Test Item Value Reference Range Interpretation Comments Monocytes # (Auto) (test code = 742-7) 0.4 0.2-0.8 [facility] LancasterEosinophils # (Auto)2018-07-11 11:54:00* Test Item Value Reference Range Interpretation Comments Eosinophils # (Auto) (test code = 711-2) 0.2 0.0-0.4 [facility] LancasterBasophils # (Auto)2018-07-11 11:54:00* Test Item Value Reference Range Interpretation Comments Basophils # (Auto) (test code = 704-7) 0.1 0.0-0.1 [facility] LancasterAbsolute Immature Granulocyte (auto 2018-07-11 11:54:00* Test Item Value Reference Range Interpretation Comments Absolute Immature Granulocyte (auto (joseph t code = Absolute Immature Granulocyte (auto) 0.26 0-0.1 H [facility] LancasterCT CERVICAL SPINE SZ7261-71-48 11:47:00 [place] [address] Patient Name: KALYANI TALAVERA MR #: [id number] : 1955 Age/Sex: 63/F Req #: [id number] Adm Physician: Ordered by: ELIESER DAWSON MD Report #: [id number] Location: ER Room/Bed: Procedure: [id number] CT/CT CERVICAL SPINE WO Exam Date: 07/11/18 Exam John e: 1100 REPORT STATUS: Signed CT CERVICAL SPINE WO HISTORY: Status post fall COMPARISON: Cervical spi ne CT 08/24/2017 TECHNIQUE: CT of the cervical spine without contrast. Sagit anup and coronal reformations were created. One or more of the following dose reduction techniques were used: Automated exposure control, adjustment of the mA and/or kV according to patient size, and/or utilization of iterative recons truction technique. FINDINGS: Mild bone demineralization and streak a rtifacts limit evaluation. Cervical lordosis is straightened. There is no sc oliosis or subluxation. No definite acute fracture or compression deformity is seen. The craniocervical junction is intact. No gross spinal canal masses are seen. The paravertebral and paraspinal soft tissues are unremarkable. There are minimal spondylotic changes. 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 Mild mosaic attenuation at the right lung apex is partially visualized. The thyroid gland is mildly enlarged and mildly heterogeneous. Mild carotid bulb and siphon calcifications are present. IMPRESSION: 1. No acute osseous abnormalities. 2. Mildly enlarged, mildly heterogeneous thyroid gland can be further evaluated with nonemergent thyroid ultrasound. Signed by: Dr. Andrei Lutz M.D. on 07/11/2018 11:54 AM Dictated By: ANDREI LUTZ MD 1154 Transcribed By: JIM on 07/11/18 1154 COPY TO: ELIESER DAWSON MD Bedside Qkipfvz5065-02-27 11:57:00* Test Item Value Reference Range Interpretation Comments Bedside Glucose (test code = 92221-7) 329 70-120 H Meter ID: [id number] Health Plainviewodium Level 2018-07-03 09:09:00* Test Item Value Reference Range Interpretation Comments Sodium Level (test code = 2951-2) 132 136-145 L [facility] LancasterPotassium Ylywb2037-92-49 09:09:00* Test Item Value Reference Range Interpretation Comments Potassium Level (test code = 2823-3) 4.6 3.5-5.1 [facility] LancasterChloride Mbipk8395-88-53 09:09:00* Test Item Value Reference Range Interpretation Comments Chloride Level (test code = 2075-0) 95 98-107 L [facility] LancasterCarbon Dioxide Rfrqf1519-36-50 09:09:00* Test Item Value Reference Range Interpretation Comments Carbon Dioxide Level (test code = 2028-9) 24 22-29 [facility] LancasterAnion Jjr5116-25-67 09:09:00* Test Item Value Reference Range Interpretation Comments Anion Gap (test code = 39142-7) 17.6 8-16 H [facility] LancasterBlood Urea Cqocyqnn3642-49-95 09:09:00* Test Item Value Reference Range Interpretation Comments Blood Urea Nitrogen (test code = 3094-0) 52 7-26 H [facility] LancasterCreatinine2018-12-11 09:09:00* Test Item Value Reference Range Interpretation Comments Creatinine (test code = 2160-0) 1.72 0.57-1.11 H [facility] LancasterBUN/Creatinine Dhqir2545-29-64 09:09:00* Test Item Value Reference Range Interpretation Comments BUN/Creatinine Ratio (test code = 3097-3) 30 6-25 H [facility] LancasterEstimat Glomerular Filtration Rate 2018-07-03 09:09:00* Test Item Value Reference Range Interpretation Comments Estimat Glomerular Filtration Rate (test code = 472485711) 30 >60 L Ranges were taken from the National Kidney Disease Education Program and the [facility] literature.Reference ranges:60 or greater: Jvdiek12-51 ( for 3 consecutive months): Chronic kidney disease 15 or less: Kidney failureCHI Hca Houston Healthcare Medical CenterGlucose Uzpmu3036-86-27 09:09:00* Test Item Value Reference Range Interpretation Comments Glucose Level (test code = ATO3233) 218 74-118 H [facility] LancasterCalcium Ifnsh9693-88-02 09:09:00* Test Item Value Reference Range Interpretation Comments Calcium Level (test code = 70367-7) 9.1 8.4-10.2 [facility] LancasterTotal Pfzruqwvm7947-68-23 09:09:00* Test Item Value Reference Range Interpretation Comments Total Bilirubin (test code = 1975-2) 0.4 0.2-1.2 [facility] LancasterAspartate Amino Transf (AST/SGOT) 2018-07-03 09:09:00* Test Item Value Reference Range Interpretation Comments Aspartate Amino Transf (AST/SGOT) (test code = Aspartate Amino Transf (AST/SGOT)) 9 5-34 [facility] LancasterAlanine Aminotransferase (ALT/SGPT) 2018-07-03 09:09:00* Test Item Value Reference Range Interpretation Comments Alanine Aminotransferase (ALT/SGPT) (test code = 1742-6) 12 0-55 [facility] LancasterTotal Utapffe3450-87-71 09:09:00* Test Item Value Reference Range Interpretation Comments Total Protein (test code = 2885-2) 7.2 6.5-8.1 [facility] LancasterAlbumin2018-12-11 09:09:00* Test Item Value Reference Range Interpretation Comments Albumin (test code = 1751-7) 3.4 3.5-5.0 L [facility] LancasterGlobulin2018-12-11 09:09:00* Test Item Value Reference Range Interpretation Comments Globulin (test code = 33228-6) 3.8 2.3-3.5 H [facility] LancasterAlbumin/Globulin Tlbig1400-31-96 09:09:00 * Test Item Value Reference Range Interpretation Comments Albumin/Globulin Ratio (test code = 1759-0) 0.9 0.8-2.0 [facility] LancasterAlkaline Bspgsaqhpql8887-38-48 09:09:00* Test Item Value Reference Range Interpretation Comments Alkaline Phosphatase (test code = 6768-6) 59 40-150 [facility] LancasterCHEST SINGLE (NOT PORTABLE)2018-07-01 13:32:00 [place] [address] Patient Name: KALYANI TALAVERA MR #: [id number] : 1955 Age/Sex: 63/F Req #: [id number] Adm Physician: LUCILLE OLIVO MD Ordered by: BENJAMIN MASTERS MD Report #: [id number] Location: [facility] Room/Bed: [place] [address] Procedure: [id number] DX/CHEST SINGLE (NOT PORTABLE) Exam Date: 07/01/18 Exam Time: 1315 REPORT STATUS: Sign ed Examination: Single AP view of the chest. COMPARISON: June 27 INDICATION: Congestive heart failure DISCUSSION: Lines/tub es: None. Lungs: Low lung volumes. Central venous congestion. No consolid ation or pulmonary edema. Pleura: There is no pleural effusion or pneumo thorax. Heart and mediastinum: The heart and the mediastinum are unremarka ble. Bones and soft tissues: No acute bony abnormalities. IMPRES SANTO: 1. Central pulmonary venous congestion. No edema. Si gned by: Dr. Kelly Claire M.D. on 07/01/2018 1:34 PM Dictated By: BENITO CLAIRE MD 1334 Transcribed By: JIM on 07/01/18 1334 COPY TO: BENJAMIN MASTERS MD Hemoglobin A1c Eymfcwb4183-87-13 13:20:00* Test Item Value Reference Range Interpretation Comments Hemoglobin A1c Percent (test code = Hemoglobin A1c Percent) 8.4 4.0-7.0 H [facility] LancasterHemoglobin A1c Plnijju2735-46-44 13:20:00 * Test Item Value Reference Range Interpretation Comments Hemoglobin A1c Percent (test code = Hemoglobin A1c Percent) 8.4 4.0-7.0 H [facility] LancasterHemoglobin A1c Fgaheon1413-73-60 13:20:00 * Test Item Value Reference Range Interpretation Comments Hemoglobin A1c Percent (test code = Hemoglobin A1c Percent) 8.4 4.0-7.0 H [facility] LancasterHemoglobin A1c Yngmone3351-68-30 13:20:00 * Test Item Value Reference Range Interpretation Comments Hemoglobin A1c Percent (test code = Hemoglobin A1c Percent) 8.4 4.0-7.0 H [facility] LancasterVQ LUNG SCAN VENT TLVOXHFJX5154-04-41 16:24:00 [facility] [address] [place] [address] Patient Name: KALYANI TALAVERA MR #: [id number] : 1955 Age/Sex: 63/F Req #: [id number] Adm Physician: LUCILLE OLIVO MD Ordered by: JACINDA BUSTILLOS MD Report #: [id number] Location: [facility] Room/Bed: [place] [address] Procedure: [id number] N M/VQ LUNG SCAN VENT PERFUSION Exam Date: Exam Ti me: REPORT STATUS: Signed Venti lation/perfusion lung scan Clinical Information: 63 F with CHR and pulmonar y hypertension Comparison: Chest radiograph 06/27/2018 Discussion: Xeno n-133 gas 15.5 mCi was administered via inhalation. Dynamic images of the ami gs in the posterior projection were obtained through single breath, equilibriu m, and washout phases. Distribution of tracer activity is irregular throughou t the lungs. There are no segmental ventilatory defects. Washout of tracer i s diffusely delayed with diffuse air trapping. Perfusion images of the lung s were obtained in multiple projections following intravenous administration o f approximately 5.5 mCi of Tc-99m MAA. Distribution of tracer appears physiolo gic throughout the lungs. The contours of the lungs are well demarcated. The re are no segmental perfusion defects of any size. The cardiomediastinal silhouette is mildly enlarged. Impression: 1. Scan findings represen t a VERY LOW probability for acute pulmonary embolic disease based on the PIOP ED II criteria. Scan evidence of obstructive lung disease. 2. Mildly en larged cardiac silhouette. Signed by: Dr. Tami June M.D. on 06/29/2018 4: 27 PM Dictated By: TAMI JUNE MD 6909 Transcribed By: JIM on 06/29/18 4907 COPY TO: JACINDA VILLAGOMEZ MD Creatine Kinase UZ3691-11-16 08:14:00* Test Item Value Reference Range Interpretation Comments Creatine Kinase MB (test code = 88086-4) 1.50 0-5.0 [facility] LancasterTroponin R3533-30-38 08:14:00* Test Item Value Reference Range Interpretation Comments Troponin I (test code = JVY6828) < 0.001 0-0.300 [facility] LancasterCreatine Cknmjf2703-66-46 08:07:00* Test Item Value Reference Range Interpretation Comments Creatine Kinase (test code = 2157-6) 61 29-168 [facility] LancasterB-Type Natriuretic Xwvodiz8787-87-22 07:10:00* Test Item Value Reference Range Interpretation Comments B-Type Natriuretic Peptide (test code = 24560-7) < 10.0 0-100 [facility] LancasterWhite Blood Qafhd1816-05-72 05:51:00* Test Item Value Reference Range Interpretation Comments White Blood Count (test code = 6690-2) 6.29 4.8-10.8 [facility] LancasterRed Blood Kxskl0967-73-26 05:51:00* Test Item Value Reference Range Interpretation Comments Red Blood Count (test code = 789-8) 4.36 3.6-5.1 [facility] LancasterHemoglobin2018-12-06 05:51:00* Test Item Value Reference Range Interpretation Comments Hemoglobin (test code = 97700-9) 11.1 12.0-16.0 L [facility] LancasterHematocrit2018-12-06 05:51:00* Test Item Value Reference Range Interpretation Comments Hematocrit (test code = 4544-3) 37.1 34.2-44.1 [facility] LancasterMean Corpuscular Himtvs8650-29-36 05:51:00* Test Item Value Reference Range Interpretation Comments Mean Corpuscular Volume (test code = 787-2) 85.1 81-99 [facility] LancasterMean Corpuscular Anoqltxmtk7240-44-73 05:51:00* Test Item Value Reference Range Interpretation Comments Mean Corpuscular Hemoglobin (test code = 785-6) 25.5 28-32 L [facility] LancasterMean Corpuscular Hemoglobin Concent 2018-06-28 05:51:00* Test Item Value Reference Range Interpretation Comments Mean Corpuscular Hemoglobin Concent (test code = 786-4) 29.9 31-35 L [facility] LancasterRed Cell Distribution Mgeyt7647-86-85 05:51:00* Test Item Value Reference Range Interpretation Comments Red Cell Distribution Width (test code = 10998-9) 15.7 11.7 -14.4 H [facility] LancasterPlatelet Hollj2540-77-50 05:51:00* Test Item Value Reference Range Interpretation Comments Platelet Count (test code = 777-3) 162 140-360 [facility] LancasterNeutrophils (%) (Auto)2018-06-28 05:51:00 * Test Item Value Reference Range Interpretation Comments Neutrophils (%) (Auto) (test code = 61828-2) 75.4 38.7-80.0 [facility] LancasterLymphocytes (%) (Auto)2018-06-28 05:51:00 * Test Item Value Reference Range Interpretation Comments Lymphocytes (%) (Auto) (test code = 736-9) 13.0 18.0-39.1 L [facility] LancasterMonocytes (%) (Auto)2018-06-28 05:51:00* Test Item Value Reference Range Interpretation Comments Monocytes (%) (Auto) (test code = 5905-5) 7.3 4.4-11.3 [facility] LancasterEosinophils (%) (Auto)2018-06-28 05:51:00 * Test Item Value Reference Range Interpretation Comments Eosinophils (%) (Auto) (test code = 713-8) 2.7 0.0-6.0 [facility] LancasterBasophils (%) (Auto)2018-06-28 05:51:00* Test Item Value Reference Range Interpretation Comments Basophils (%) (Auto) (test code = 706-2) 1.0 0.0-1.0 [facility] LancasterIM GRANULOCYTES %2018-06-28 05:51:00* Test Item Value Reference Range Interpretation Comments IM GRANULOCYTES % (test code = IM GRANULOCYTES %) 0.6 0.0- 1.0 [facility] LancasterNeutrophils # (Auto)2018-06-28 05:51:00* Test Item Value Reference Range Interpretation Comments Neutrophils # (Auto) (test code = 751-8) 4.7 2.1-6.9 [facility] LancasterLymphocytes # (Auto)2018-06-28 05:51:00* Test Item Value Reference Range Interpretation Comments Lymphocytes # (Auto) (test code = 36148-1) 0.8 1.0-3.2 L [facility] LancasterMonocytes # (Auto)2018-06-28 05:51:00* Test Item Value Reference Range Interpretation Comments Monocytes # (Auto) (test code = 742-7) 0.5 0.2-0.8 [facility] LancasterEosinophils # (Auto)2018-06-28 05:51:00* Test Item Value Reference Range Interpretation Comments Eosinophils # (Auto) (test code = 711-2) 0.2 0.0-0.4 [facility] LancasterBasophils # (Auto)2018-06-28 05:51:00* Test Item Value Reference Range Interpretation Comments Basophils # (Auto) (test code = 704-7) 0.1 0.0-0.1 [facility] LancasterAbsolute Immature Granulocyte (auto 2018-06-28 05:51:00* Test Item Value Reference Range Interpretation Comments Absolute Immature Granulocyte (auto (joseph t code = Absolute Immature Granulocyte (auto) 0.04 0-0.1 [facility] LancasterCHEST 2 MOIST9138-81-30 04:37:00 [facility] [address] [place] [address] Patient Name: KALYANI TALAVERA MR #: [id number] : 1955 Age/Sex: 63/F Req #: [id number] [facility] Physician: Ordered by: JACQUES JANE MD Report #: [id number] Location: ER Room/Bed: Procedure: 1205- 0011 DX/CHEST 2 VIEWS Exam Date: 06/27/18 Exam Time: 0430 REPORT STATUS: Signed CHEST 2 VIEWS, Technique: CHEST 2 VIEWS Comparison: 04/03/2018 Clinical history: Shortness of breath DISCUSSION: Stable mildly enlarged cardiom ediastinal silhouette. Low lung volumes with mild bilateral interstitial opaci ty and bibasilar atelectasis or scarring. No effusion or pneumothorax. IM PRESSION: Cardiomegaly with findings which may be related to edema with or wit hout underlying chronic lung change. Consider short-term follow-up upright PA and lateral. Signed by: Dr Mikey Bee MD on 06/27/2018 4:40 AM Dictated By: MIKEY BEE MD 9 Transcribed By: JIM on 06/27/18439 COPY TO: JACQUES HOOD MD SAXCAHP7770-90-48 13:15:00 RUN DATE: 06/21/18 [facility] PAGE 1 RUN TIME: 1316 Specimen Inqui ry RUN USER: INTERFACE PATIENT: KALYANI TALAVERA ACCT #: [id number] LOC: [place] U #: [id number] AGE/SX: 63/F ROOM: RE06/19/18REG DR: Kb Bradford MD : 57 BED: DIS: STATUS: [facility] TLOC: SPEC #: [id number] RECD: 06/20/18 STATUS: [facility] RE #: [id number] MARILEE: 06/19/18 DR: Kb Bradford MD ENTERED: 06/20/18 SP TYPE: STOMACH OTHR DR: Lucille Torres MDORDERED: GROSS COPIES TO: Lucille Nur MD [address] [facility] [address] [place] [address] Kb Bradford Si, MD [address] [address] PROCEDURES: GROSS ( 06/21/18-1249) TISSUES: ANTRAL BIOPSY - H-PYLORI CLINICAL HIST ORY COLLECTION DATE: 06/19/18 DYSPHAGIA, HEARTBURN POST-OP DIAGNOSIS: HIATAL HERNIA, GASTRITIS FINAL DIAGNOSIS Stomach, antrum, biopsy: REACTIVE GASTROPATHY CONTROLLED GIEMSA STAIN NEGATIVE FOR HELICOBAC TER ORGANISMS NEGATIVE FOR MALIGNANCY MARYAM/sm D 49820, [address]92 MACROSCOPIC The specimen is received in formalin, labeled with the lis ent's name, identified as "antrum bx", and consists of two gutierrez biopsy tissue m easuring 0.3 cm each, submitted for H E and Giemsa stains. GROSS PERFORM ED AT [facility] CONTINUED ON NEXT PAG E RUN DATE: 06/21/18 [facility] [facility] PAGE 2 RUN TIME: 1316 Specimen Inquiry RUN USER: INTERFACE SPEC #: [id number] PATIENT: KHANH TALAVERACornell GUARDADO #[id number] (Continued) MACROSCO PIC (Continued) [facility] [address] [place] [address], [place] [address] (p)[phone] MICROSCOPIC MICROSCOPIC PERFOR MED AT [facility] All of the stains, including any controls perfor med, stain appropriately. [facility] [address] [place] [address] (p)[phone] PERFORMING SITE Diagnosis performed at: [facility], YANETH [address] [facility] [place] [address] Signed SIGNATURE ON FILE Stacey Fuller Astrid 06/21/18 1315 END OF REPORT B-Type Natriuretic Dkkrcvm9536-61-99 03:14:00* Test Item Value Reference Range Interpretation Comments B-Type Natriuretic Peptide (test code = 36911-1) 10.5 0-100 [facility] LancasterCreatine Kinase VM0892-62-13 03:14:00* Test Item Value Reference Range Interpretation Comments Creatine Kinase MB (test code = 76114-1) 1.30 0-5.0 [facility] LancasterTroponin C5826-77-52 03:14:00* Test Item Value Reference Range Interpretation Comments Troponin I (test code = KKS0074) -0.001 0-0.300 [facility] LancasterBedside Qqpjktj7654-57-09 03:04:00* Test Item Value Reference Range Interpretation Comments Bedside Glucose (test code = 01707-2) 291 70-120 H Meter ID: [id number] Health Plainviewodium Level 2018-04-03 02:45:00* Test Item Value Reference Range Interpretation Comments Sodium Level (test code = 2951-2) 140 136-145 [facility] LancasterPotassium Sjofz0645-00-30 02:45:00* Test Item Value Reference Range Interpretation Comments Potassium Level (test code = 2823-3) 3.8 3.5-5.1 [facility] LancasterChloride Vuybx6826-29-10 02:45:00* Test Item Value Reference Range Interpretation Comments Chloride Level (test code = 2075-0) 100 98-107 [facility] LancasterCarbon Dioxide Taate7281-98-95 02:45:00* Test Item Value Reference Range Interpretation Comments Carbon Dioxide Level (test code = 2028-9) 29 22-29 [facility] LancasterAnion Sav4570-99-00 02:45:00* Test Item Value Reference Range Interpretation Comments Anion Gap (test code = 75497-4) 14.8 8-16 [facility] LancasterBlood Urea Dvocapmb9512-25-63 02:45:00* Test Item Value Reference Range Interpretation Comments Blood Urea Nitrogen (test code = 3094-0) 49 7-26 H [facility] LancasterCreatinine2018-09-11 02:45:00* Test Item Value Reference Range Interpretation Comments Creatinine (test code = 2160-0) 1.93 0.57-1.11 H [facility] LancasterBUN/Creatinine Vivsr8087-58-03 02:45:00* Test Item Value Reference Range Interpretation Comments BUN/Creatinine Ratio (test code = 3097-3) 25 6-25 [facility] LancasterEstimat Glomerular Filtration Rate 2018-04-03 02:45:00* Test Item Value Reference Range Interpretation Comments Estimat Glomerular Filtration Rate (test code = 96009-5) 26 >60 L Ranges were taken from the National Kidney Disease Education Program and the [facility] Kid[facility] Foundation literature.Reference ranges:60 or greater: Awwsvl21-81 ( for 3 consecutive months): Chronic kidney disease 15 or less: Kidney failureCrescent Medical Center LancasterGlucose Pfmgb2329-15-15 02:45:00* Test Item Value Reference Range Interpretation Comments Glucose Level (test code = GEE2296) 58 74-118 LL Results called to LU HARMONRN at 0244 on 04/03/18 by Francoise Proctor. RB OK. [facility] LancasterCalcium Rykhg4336-04-39 02:45:00* Test Item Value Reference Range Interpretation Comments Calcium Level (test code = 66382-8) 9.3 8.4-10.2 [facility] LancasterTotal Ckkojnxfx4708-26-36 02:45:00* Test Item Value Reference Range Interpretation Comments Total Bilirubin (test code = 1975-2) 0.2 0.2-1.2 [facility] LancasterAspartate Amino Transf (AST/SGOT) 2018-04-03 02:45:00* Test Item Value Reference Range Interpretation Comments Aspartate Amino Transf (AST/SGOT) (test code = Aspartate Amino Transf (AST/SGOT)) 18 5-34 [facility] LancasterAlanine Aminotransferase (ALT/SGPT) 2018-04-03 02:45:00* Test Item Value Reference Range Interpretation Comments Alanine Aminotransferase (ALT/SGPT) (test code = 1742-6) 18 0-55 [facility] LancasterTotal Xeyjzfy9434-07-38 02:45:00* Test Item Value Reference Range Interpretation Comments Total Protein (test code = 2885-2) 7.3 6.5-8.1 [facility] LancasterAlbumin2018-09-11 02:45:00* Test Item Value Reference Range Interpretation Comments Albumin (test code = 1751-7) 3.5 3.5-5.0 [facility] LancasterGlobulin2018-09-11 02:45:00* Test Item Value Reference Range Interpretation Comments Globulin (test code = 00113-0) 3.8 2.3-3.5 H [facility] LancasterAlbumin/Globulin Keoxg9533-32-58 02:45:00 * Test Item Value Reference Range Interpretation Comments Albumin/Globulin Ratio (test code = 1759-0) 0.9 0.8-2.0 [facility] LancasterAlkaline Pmflbjkxyjv8963-22-77 02:45:00* Test Item Value Reference Range Interpretation Comments Alkaline Phosphatase (test code = 6768-6) 56 40-150 [facility] LancasterCreatine Eqkzta5143-93-74 02:45:00* Test Item Value Reference Range Interpretation Comments Creatine Kinase (test code = 2157-6) 54 29-168 [facility] LancasterUrine Qupwr0449-15-20 02:37:00* Test Item Value Reference Range Interpretation Comments Urine Color (test code = 5778-6) COLORLESS YELLOW [facility] LancasterUrine Elqquni3907-79-48 02:37:00* Test Item Value Reference Range Interpretation Comments Urine Clarity (test code = 87951-5) CLEAR CLEAR [facility] LancasterUrine Specific Tnxnywd6509-66-14 02:37:00 * Test Item Value Reference Range Interpretation Comments Urine Specific [place] (test code = 5811-5) 1.005 1.010-1.02 5 L [facility] LancasterUrine kV8886-08-54 02:37:00* Test Item Value Reference Range Interpretation Comments Urine pH (test code = 19472-8) 7 5-7 [facility] LancasterUrine Leukocyte Ndtxtgzi8091-95-91 02:37:00* Test Item Value Reference Range Interpretation Comments Urine Leukocyte Esterase (test code = 5799-2) NEGATIVE NEGATIVE [facility] LancasterUrine Oewvdgn3786-39-12 02:37:00* Test Item Value Reference Range Interpretation Comments Urine Nitrite (test code = 72930-1) NEGATIVE NEGATIVE [facility] LancasterUrine Ajfermp2788-20-28 02:37:00* Test Item Value Reference Range Interpretation Comments Urine Protein (test code = 5804-0) NEGATIVE NEGATIVE [facility] LancasterUrine Glucose (UA)2018-04-03 02:37:00* Test Item Value Reference Range Interpretation Comments Urine Glucose (UA) (test code = 2349-9) NEGATIVE NEGATIVE [facility] LancasterUrine Njicmyb5362-11-21 02:37:00* Test Item Value Reference Range Interpretation Comments Urine Ketones (test code = 79709-6) NEGATIVE NEGATIVE [facility] LancasterUrine Uqtjbeivpoyo1932-45-84 02:37:00* Test Item Value Reference Range Interpretation Comments Urine Urobilinogen (test code = 01270-8) 0.2 0.2-1 [facility] LancasterUrine Zzkqzcbrq9419-25-59 02:37:00* Test Item Value Reference Range Interpretation Comments Urine Bilirubin (test code = 1978-6) NEGATIVE NEGATIVE [facility] LancasterUrine Cgkls7265-99-96 02:37:00* Test Item Value Reference Range Interpretation Comments Urine Blood (test code = 18908-7) TRACE NEGATIVE H [facility] LancasterUrine BCK3253-46-21 02:37:00* Test Item Value Reference Range Interpretation Comments Urine WBC (test code = 5821-4) 0-5 0-5 [facility] LancasterUrine CTP4621-45-41 02:37:00* Test Item Value Reference Range Interpretation Comments Urine RBC (test code = 00505-1) 0-5 0-5 [facility] LancasterUrine Frirczth1185-05-97 02:37:00* Test Item Value Reference Range Interpretation Comments Urine Bacteria (test code = 87205-3) RARE NONE [facility] LancasterUrine Epithelial Owoce4317-50-79 02:37:00 * Test Item Value Reference Range Interpretation Comments Urine Epithelial Cells (test code = 02671-1) FEW NONE [facility] LancasterUrine Iulif8334-04-81 02:37:00* Test Item Value Reference Range Interpretation Comments Urine Color (test code = 5778-6) COLORLESS YELLOW [facility] LancasterUrine Yfqshqj6963-98-14 02:37:00* Test Item Value Reference Range Interpretation Comments Urine Clarity (test code = 64193-3) CLEAR CLEAR [facility] LancasterUrine Specific Cywhulw6267-68-47 02:37:00 * Test Item Value Reference Range Interpretation Comments Urine Specific [place] (test code = 5811-5) 1.005 1.010-1.02 5 L [facility] [place] rP0442-36-40 02:37:00* Test Item Value Reference Range Interpretation Comments Urine pH (test code = 54744-5) 7 5-7 [facility] Leukocyte Jxqqyoqp2308-74-96 02:37:00* Test Item Value Reference Range Interpretation Comments Urine Leukocyte Esterase (test code = 5799-2) NEGATIVE NEGATIVE [facility] Pwstggn1702-24-33 02:37:00* Test Item Value Reference Range Interpretation Comments Urine Nitrite (test code = 51046-9) NEGATIVE NEGATIVE [facility] Ugqduea9162-30-26 02:37:00* Test Item Value Reference Range Interpretation Comments Urine Protein (test code = 5804-0) NEGATIVE NEGATIVE [facility] Glucose (UA)2018-04-03 02:37:00* Test Item Value Reference Range Interpretation Comments Urine Glucose (UA) (test code = 2349-9) NEGATIVE NEGATIVE [facility] Zcbxxis4652-17-90 02:37:00* Test Item Value Reference Range Interpretation Comments Urine Ketones (test code = 57588-9) NEGATIVE NEGATIVE [facility] Wdxkmqqkkqav9399-03-85 02:37:00* Test Item Value Reference Range Interpretation Comments Urine Urobilinogen (test code = 80311-0) 0.2 0.2-1 [facility] Zvemcjkfe2158-26-92 02:37:00* Test Item Value Reference Range Interpretation Comments Urine Bilirubin (test code = 1978-6) NEGATIVE NEGATIVE [facility] Nqvze5020-64-24 02:37:00* Test Item Value Reference Range Interpretation Comments Urine Blood (test code = 27740-9) TRACE NEGATIVE H [facility] XQI7192-36-69 02:37:00* Test Item Value Reference Range Interpretation Comments Urine WBC (test code = 5821-4) 0-5 0-5 [facility] REG9514-85-44 02:37:00* Test Item Value Reference Range Interpretation Comments Urine RBC (test code = 79858-5) 0-5 0-5 [facility] Qjxhffwx4160-63-43 02:37:00* Test Item Value Reference Range Interpretation Comments Urine Bacteria (test code = 31316-6) RARE NONE [facility] Epithelial Csjqo7777-07-57 02:37:00 * Test Item Value Reference Range Interpretation Comments Urine Epithelial Cells (test code = 41599-2) FEW NONE [facility] Usebc4480-72-19 02:37:00* Test Item Value Reference Range Interpretation Comments Urine Color (test code = 5778-6) COLORLESS YELLOW [facility] Jlcmcqo0172-86-35 02:37:00* Test Item Value Reference Range Interpretation Comments Urine Clarity (test code = 13280-4) CLEAR CLEAR [facility] Specific Esyxshu9817-63-81 02:37:00 * Test Item Value Reference Range Interpretation Comments Urine Specific [place] (test code = 5811-5) 1.005 1.010-1.02 5 L [facility] fI9124-44-13 02:37:00* Test Item Value Reference Range Interpretation Comments Urine pH (test code = 77489-0) 7 5-7 [facility] Leukocyte Fohekdne4211-93-36 02:37:00* Test Item Value Reference Range Interpretation Comments Urine Leukocyte Esterase (test code = 5799-2) NEGATIVE NEGATIVE [facility] Jvlipmu3262-40-77 02:37:00* Test Item Value Reference Range Interpretation Comments Urine Nitrite (test code = 12865-1) NEGATIVE NEGATIVE [facility] Vpacyvu7254-91-05 02:37:00* Test Item Value Reference Range Interpretation Comments Urine Protein (test code = 5804-0) NEGATIVE NEGATIVE [facility] Glucose (UA)2018-04-03 02:37:00* Test Item Value Reference Range Interpretation Comments Urine Glucose (UA) (test code = 2349-9) NEGATIVE NEGATIVE [facility] Kpjrgff5996-76-76 02:37:00* Test Item Value Reference Range Interpretation Comments Urine Ketones (test code = 96418-9) NEGATIVE NEGATIVE [facility] Hvtrsprbvoal8651-96-22 02:37:00* Test Item Value Reference Range Interpretation Comments Urine Urobilinogen (test code = 09056-2) 0.2 0.2-1 [facility] Evlqjathz4893-02-37 02:37:00* Test Item Value Reference Range Interpretation Comments Urine Bilirubin (test code = 1978-6) NEGATIVE NEGATIVE [facility] Ycckc4610-14-74 02:37:00* Test Item Value Reference Range Interpretation Comments Urine Blood (test code = 75637-9) TRACE NEGATIVE H [facility] [place] BTZ1447-28-92 02:37:00* Test Item Value Reference Range Interpretation Comments Urine WBC (test code = 5821-4) 0-5 0-5 [facility] QPS4812-72-42 02:37:00* Test Item Value Reference Range Interpretation Comments Urine RBC (test code = 94041-6) 0-5 0-5 [facility] Bbtasulp9653-48-15 02:37:00* Test Item Value Reference Range Interpretation Comments Urine Bacteria (test code = 66869-2) RARE NONE [facility] Epithelial Mlkdg9141-21-23 02:37:00 * Test Item Value Reference Range Interpretation Comments Urine Epithelial Cells (test code = 05008-5) FEW NONE [facility] Itvrr9078-84-54 02:37:00* Test Item Value Reference Range Interpretation Comments Urine Color (test code = 5778-6) COLORLESS YELLOW [facility] Spkazvs3833-67-90 02:37:00* Test Item Value Reference Range Interpretation Comments Urine Clarity (test code = 17123-5) CLEAR CLEAR [facility] [place] Specific Hirtclg8897-46-05 02:37:00 * Test Item Value Reference Range Interpretation Comments Urine Specific [place] (test code = 5811-5) 1.005 1.010-1.02 5 L [facility] oM9129-20-56 02:37:00* Test Item Value Reference Range Interpretation Comments Urine pH (test code = 00524-0) 7 5-7 [facility] [place] Leukocyte Aljlkcqp0230-82-05 02:37:00* Test Item Value Reference Range Interpretation Comments Urine Leukocyte Esterase (test code = 5799-2) NEGATIVE NEGATIVE [facility] Aokiaji4046-87-41 02:37:00* Test Item Value Reference Range Interpretation Comments Urine Nitrite (test code = 25051-9) NEGATIVE NEGATIVE [facility] [place] Lpigljx2316-95-27 02:37:00* Test Item Value Reference Range Interpretation Comments Urine Protein (test code = 5804-0) NEGATIVE NEGATIVE [facility] [place] Glucose (UA)2018-04-03 02:37:00* Test Item Value Reference Range Interpretation Comments Urine Glucose (UA) (test code = 2349-9) NEGATIVE NEGATIVE [facility] Gkxtccz8939-31-65 02:37:00* Test Item Value Reference Range Interpretation Comments Urine Ketones (test code = 35208-9) NEGATIVE NEGATIVE [facility] Undkengmocya8245-52-36 02:37:00* Test Item Value Reference Range Interpretation Comments Urine Urobilinogen (test code = 23684-0) 0.2 0.2-1 [facility] Utrgthrcc6011-24-68 02:37:00* Test Item Value Reference Range Interpretation Comments Urine Bilirubin (test code = 1978-6) NEGATIVE NEGATIVE [facility] Qsptr3870-64-36 02:37:00* Test Item Value Reference Range Interpretation Comments Urine Blood (test code = 55807-5) TRACE NEGATIVE H [facility] FVE7833-16-98 02:37:00* Test Item Value Reference Range Interpretation Comments Urine WBC (test code = 5821-4) 0-5 0-5 [facility] ZDT8824-85-36 02:37:00* Test Item Value Reference Range Interpretation Comments Urine RBC (test code = 31984-0) 0-5 0-5 [facility] Ppcdudun4537-03-23 02:37:00* Test Item Value Reference Range Interpretation Comments Urine Bacteria (test code = 83316-1) RARE NONE [facility] [place] Epithelial Mdwan3162-59-08 02:37:00 * Test Item Value Reference Range Interpretation Comments Urine Epithelial Cells (test code = 52985-5) FEW NONE [facility] [place] Blood Wfbsy2805-79-00 02:30:00* Test Item Value Reference Range Interpretation Comments White Blood Count (test code = 6690-2) 6.05 4.8-10.8 [facility] [place] Blood Ltcli3737-95-57 02:30:00* Test Item Value Reference Range Interpretation Comments Red Blood Count (test code = 789-8) 4.43 3.6-5.1 [facility] [place]emoglobin2018-09-11 02:30:00* Test Item Value Reference Range Interpretation Comments Hemoglobin (test code = 02837-9) 11.5 12.0-16.0 L [facility] LancasterHematocrit2018-09-11 02:30:00* Test Item Value Reference Range Interpretation Comments Hematocrit (test code = 4544-3) 38.3 34.2-44.1 [facility] [place] Corpuscular Rwbnhc8709-52-08 02:30:00* Test Item Value Reference Range Interpretation Comments Mean Corpuscular Volume (test code = 787-2) 86.5 81-99 [facility] [place] Corpuscular Tsnnvvxlgz9494-15-58 02:30:00* Test Item Value Reference Range Interpretation Comments Mean Corpuscular Hemoglobin (test code = 785-6) 26.0 28-32 L [facility] [place] Corpuscular Hemoglobin Concent 2018-04-03 02:30:00* Test Item Value Reference Range Interpretation Comments Mean Corpuscular Hemoglobin Concent (test code = 786-4) 30.0 31-35 L [facility] [place]Red Cell Distribution Bgdng5302-61-13 02:30:00* Test Item Value Reference Range Interpretation Comments Red Cell Distribution Width (test code = 74999-0) 15.9 11.7 -14.4 H [facility] [place] Hbtjh8743-75-46 02:30:00* Test Item Value Reference Range Interpretation Comments Platelet Count (test code = 777-3) 175 140-360 [facility] LancasterNeutrophils (%) (Auto)2018-04-03 02:30:00 * Test Item Value Reference Range Interpretation Comments Neutrophils (%) (Auto) (test code = 55158-3) 69.7 38.7-80.0 [facility] [place]Lymphocytes (%) (Auto)2018-04-03 02:30:00 * Test Item Value Reference Range Interpretation Comments Lymphocytes (%) (Auto) (test code = 736-9) 18.5 18.0-39.1 [facility] [place] (%) (Auto)2018-04-03 02:30:00* Test Item Value Reference Range Interpretation Comments Monocytes (%) (Auto) (test code = 5905-5) 6.8 4.4-11.3 [facility] [place]Eosinophils (%) (Auto)2018-04-03 02:30:00 * Test Item Value Reference Range Interpretation Comments Eosinophils (%) (Auto) (test code = 713-8) 3.3 0.0-6.0 [facility] [place] (%) (Auto)2018-04-03 02:30:00* Test Item Value Reference Range Interpretation Comments Basophils (%) (Auto) (test code = 706-2) 1.0 0.0-1.0 [facility] [place]IM GRANULOCYTES %2018-04-03 02:30:00* Test Item Value Reference Range Interpretation Comments IM GRANULOCYTES % (test code = IM GRANULOCYTES %) 0.7 0.0- 1.0 [facility] LancasterNeutrophils # (Auto)2018-04-03 02:30:00* Test Item Value Reference Range Interpretation Comments Neutrophils # (Auto) (test code = 751-8) 4.2 2.1-6.9 [facility] [place]Lymphocytes # (Auto)2018-04-03 02:30:00* Test Item Value Reference Range Interpretation Comments Lymphocytes # (Auto) (test code = 56369-9) 1.1 1.0-3.2 [facility] [place]Monocytes # (Auto)2018-04-03 02:30:00* Test Item Value Reference Range Interpretation Comments Monocytes # (Auto) (test code = 742-7) 0.4 0.2-0.8 [facility] [place]Eosinophils # (Auto)2018-04-03 02:30:00* Test Item Value Reference Range Interpretation Comments Eosinophils # (Auto) (test code = 711-2) 0.2 0.0-0.4 [facility] [place] # (Auto)2018-04-03 02:30:00* Test Item Value Reference Range Interpretation Comments Basophils # (Auto) (test code = 704-7) 0.1 0.0-0.1 [facility] LancasterAbsolute Immature Granulocyte (auto 2018-04-03 02:30:00* Test Item Value Reference Range Interpretation Comments Absolute Immature Granulocyte (auto (joseph t code = Absolute Immature Granulocyte (auto) 0.04 0-0.1 [facility] [place]ING[facility])2018-04-03 02:16:00 [place] [address] Patient Name: KALYANI TALAVERA MR #: [id number] : 1955 Age/Sex: 63/F Req #: [id number] Adm Physician: Ordered by: ROBERT OLIVIA MD Report #: [id number] Location: ER Room/Bed: Procedure: [id number] DX/CHEST SINGLE (PORTABLE) Ex am Date: Exam Time: REPORT STATUS: Signed EXAMINATION: CHEST SINGLE (PORTABLE) INDICATION: Shortness o f breath COMPARISON: 02/04/2018 FINDINGS: TUBES and LINES: No ne. LUNGS: Lungs are not well inflated. There are bibasilar atelectasis. There is mild prominence of the central pulmonary vasculature, consistent wi th pulmonary venous congestion. PLEURA: No pleural effusion or pneumotho rax. HEART AND MEDIASTINUM: Cardiac size is mildly enlarged. BONE S AND SOFT TISSUES: No acute osseous lesion. Soft tissues are unremarkable. UPPER ABDOMEN: No free air under the diaphragm. IMPRESSION: No acute thoracic abnormality. Central vascular congestion Signed by: Dr. Kelly Noonan M.D. on 04/03/2018 2:17 AM Dictated By: PAOLA MCMILLAN MD 6 Transcribed By: JIM on 04/03/18216 COPY TO: ROBERT OLIVIA MD Bedside Kofuush0793-28-29 11:36:00* Test Item Value Reference Range Interpretation Comments Bedside Glucose (test code = 05508-6) 348 70-120 H Meter ID: [id number] LancasterCreatine Kinase MB 2018-02-05 06:30:00* Test Item Value Reference Range Interpretation Comments Creatine Kinase MB (test code = 60131-4) 1.40 0-5.0 [facility] LancasterTroponin [id number] 06:30:00* Test Item Value Reference Range Interpretation Comments Troponin I (test code = ZZW1889) 0.007 0-0.300 [facility] LancasterCreatine Yjdgqu6913-42-76 06:23:00* Test Item Value Reference Range Interpretation Comments Creatine Kinase (test code = 2157-6) 53 29-168 [facility] LancasterTriglycerides Eefob8951-00-86 06:10:00* Test Item Value Reference Range Interpretation Comments Triglycerides Level (test code = 2571-8) 159 0-149 H [facility] LancasterCholesterol Hgebq1607-12-58 06:10:00* Test Item Value Reference Range Interpretation Comments Cholesterol Level (test code = 2093-3) 180 0-199 Less than 200 mg/dL Low Fjvk991 - 239 mg/dL Borderline Aatb177 m g/dl and greater High Risk [facility] LancasterLDL Fmsekjssmkg2954-77-74 06:10:00* Test Item Value Reference Range Interpretation Comments LDL Cholesterol (test code = 2089-1) 118 60-130 [facility] LancasterHDL Hcjkbccyhdh9272-05-55 06:10:00* Test Item Value Reference Range Interpretation Comments HDL Cholesterol (test code = 2085-9) 30 40-60 L [facility] LancasterCholesterol/HDL Fukab5383-44-96 06:10:00 * Test Item Value Reference Range Interpretation Comments Cholesterol/HDL Ratio (test code = 9830-1) 6.0 3.0-3.6 H [facility] LancasterTriglycerides Rsxuk6648-13-91 06:10:00* Test Item Value Reference Range Interpretation Comments Triglycerides Level (test code = 2571-8) 159 0-149 H [facility] LancasterCholesterol Dzcel3142-33-60 06:10:00* Test Item Value Reference Range Interpretation Comments Cholesterol Level (test code = 2093-3) 180 0-199 Less than 200 mg/dL Low Hkrk638 - 239 mg/dL Borderline Faio183 m g/dl and greater High Risk [facility] LancasterLDL Tchzyazlbcu5474-89-29 06:10:00* Test Item Value Reference Range Interpretation Comments LDL Cholesterol (test code = 2089-1) 118 60-130 [facility] LancasterHDL Spjuwdhqxbp6912-85-93 06:10:00* Test Item Value Reference Range Interpretation Comments HDL Cholesterol (test code = 2085-9) 30 40-60 L [facility] LancasterCholesterol/HDL Yhbcl0625-08-66 06:10:00 * Test Item Value Reference Range Interpretation Comments Cholesterol/HDL Ratio (test code = 9830-1) 6.0 3.0-3.6 H [facility] LancasterTriglycerides Nbtgi6292-74-28 06:10:00* Test Item Value Reference Range Interpretation Comments Triglycerides Level (test code = 2571-8) 159 0-149 H [facility] LancasterCholesterol Kafmp5602-29-30 06:10:00* Test Item Value Reference Range Interpretation Comments Cholesterol Level (test code = 2093-3) 180 0-199 Less than 200 mg/dL Low Doby125 - 239 mg/dL Borderline Uhng745 m g/dl and greater High Risk [facility] LancasterLDL Rjavgycekwr7488-76-85 06:10:00* Test Item Value Reference Range Interpretation Comments LDL Cholesterol (test code = 2089-1) 118 60-130 [facility] Ljagytqltze2950-97-56 06:10:00* Test Item Value Reference Range Interpretation Comments HDL Cholesterol (test code = 2085-9) 30 40-60 L [facility] [place]Ch[facility]/HDL Dgurb1882-02-29 06:10:00 * Test Item Value Reference Range Interpretation Comments Cholesterol/HDL Ratio (test code = 9830-1) 6.0 3.0-3.6 H [facility] LancasterTriglycerides Xwlew4236-74-55 06:10:00* Test Item Value Reference Range Interpretation Comments Triglycerides Level (test code = 2571-8) 159 0-149 H [facility] LancasterCholesterol Tqvkx4955-62-02 06:10:00* Test Item Value Reference Range Interpretation Comments Cholesterol Level (test code = 2093-3) 180 0-199 Less than 200 mg/dL Low Fkmr499 - 239 mg/dL Borderline Nmlk483 m g/dl and greater High Risk [facility] LancasterLDL Esdfpeqpldw7864-54-25 06:10:00* Test Item Value Reference Range Interpretation Comments LDL Cholesterol (test code = 2089-1) 118 60-130 [facility] Akyqzcsdjmc8180-88-23 06:10:00* Test Item Value Reference Range Interpretation Comments HDL Cholesterol (test code = 2085-9) 30 40-60 L [facility] [place]Ch[facility]/HDL Sbvdj7768-64-08 06:10:00 * Test Item Value Reference Range Interpretation Comments Cholesterol/HDL Ratio (test code = 9830-1) 6.0 3.0-3.6 H [facility] LancasterTriglycerides Koxzb9006-61-31 06:10:00* Test Item Value Reference Range Interpretation Comments Triglycerides Level (test code = 2571-8) 159 0-149 H [facility] LancasterCholesterol Ukrev7633-23-97 06:10:00* Test Item Value Reference Range Interpretation Comments Cholesterol Level (test code = 2093-3) 180 0-199 Less than 200 mg/dL Low Dzes956 - 239 mg/dL Borderline Qjxb515 m g/dl and greater High Risk [facility] [place]LDL Mpwevuledtg9313-52-64 06:10:00* Test Item Value Reference Range Interpretation Comments LDL Cholesterol (test code = 2089-1) 118 60-130 [facility] [place]HDL Xdqtbsmmoho7598-07-65 06:10:00* Test Item Value Reference Range Interpretation Comments HDL Cholesterol (test code = 2085-9) 30 40-60 L [facility] [place]Cholesterol/HDL Uisje7379-93-49 06:10:00 * Test Item Value Reference Range Interpretation Comments Cholesterol/HDL Ratio (test code = 9830-1) 6.0 3.0-3.6 H [facility] [place]CHEST SINGLE ([facility]ABLE)2018-02-04 11:35:00 [facility] [address] [place] [address] Patient Name: KALYANI TALAVERA MR #: [id number] : 1955 Age/Sex: 62/F Req #: [id number] Adm Physician: Ordered by: ROBERT OLIVIA MD Report #: [id number] Location: ER Room/Bed: Procedure: [id number] DX/CHEST SINGLE (PORTABLE) Ex am Date: 02/04/18 Exam Time: 1115 REPORT STATUS : Signed EXAMINATION: CHEST SINGLE (PORTABLE) INDICATION: Dizz iness. COMPARISON: Chest x-ray 01/31/2018. FINDINGS: AP view TUBES and LINES: None. LUNGS: Hypoinflated lungs again seen with dave vated right hemidiaphragm. Perihilar vascular crowding and atelectasis unchan ged. Mild central pulmonary venous congestion. PLEURA: No pleural effusi on or pneumothorax. HEART AND MEDIASTINUM: The cardiomediastinal silhouett e is unremarkable. BONES AND SOFT TISSUES: No acute osseous lesion. S oft tissues are unremarkable. UPPER ABDOMEN: No free air under the diaphr agm. IMPRESSION: Hypoinflated lungs with perihilar vascular crowding and bibasilar atelectasis unchanged. Slight increase in central pulmonary rose ous congestion. Signed by: Dr. Neil Burger M.D. on 02/04/2018 11:35 AM Dictated By: NEIL BURGER MD 113 Transcribed By: JIM on 02/04/18 1135 COPY TO: ROBERT OLIVIA MD White Blood Sfpah9330-21-59 11:19:00* Test Item Value Reference Range Interpretation Comments White Blood Count (test code = 6690-2) 6.94 4.8-10.8 [facility] [place]Red Blood Rsfzt9833-44-59 11:19:00* Test Item Value Reference Range Interpretation Comments Red Blood Count (test code = 789-8) 4.49 3.6-5.1 [facility] LancasterHemoglobin2018-07-15 11:19:00* Test Item Value Reference Range Interpretation Comments Hemoglobin (test code = 71651-3) 11.3 12.0-16.0 L [facility] LancasterHematocrit2018-07-15 11:19:00* Test Item Value Reference Range Interpretation Comments Hematocrit (test code = 4544-3) 37.6 34.2-44.1 [facility] LancasterMean Corpuscular Hjnodt8626-55-73 11:19:00* Test Item Value Reference Range Interpretation Comments Mean Corpuscular Volume (test code = 787-2) 83.7 81-99 [facility] LancasterMean Corpuscular Ljtwzymusf9009-06-74 11:19:00* Test Item Value Reference Range Interpretation Comments Mean Corpuscular Hemoglobin (test code = 785-6) 25.2 28-32 L [facility] Corpuscular Hemoglobin Concent 2018-02-04 11:19:00* Test Item Value Reference Range Interpretation Comments Mean Corpuscular Hemoglobin Concent (test code = 786-4) 30.1 31-35 L [facility] LancasterRed Cell Distribution Rmtpw3126-41-32 11:19:00* Test Item Value Reference Range Interpretation Comments Red Cell Distribution Width (test code = 38277-6) 15.7 11.7 -14.4 H [facility] LancasterPlatelet Gksbs9484-59-40 11:19:00* Test Item Value Reference Range Interpretation Comments Platelet Count (test code = 777-3) 217 140-360 [facility] LancasterNeutrophils (%) (Auto)2018-02-04 11:19:00 * Test Item Value Reference Range Interpretation Comments Neutrophils (%) (Auto) (test code = 08934-0) 70.5 38.7-80.0 [facility] LancasterLymphocytes (%) (Auto)2018-02-04 11:19:00 * Test Item Value Reference Range Interpretation Comments Lymphocytes (%) (Auto) (test code = 736-9) 19.0 18.0-39.1 [facility] LancasterMonocytes (%) (Auto)2018-02-04 11:19:00* Test Item Value Reference Range Interpretation Comments Monocytes (%) (Auto) (test code = 5905-5) 5.3 4.4-11.3 [facility] LancasterEosinophils (%) (Auto)2018-02-04 11:19:00 * Test Item Value Reference Range Interpretation Comments Eosinophils (%) (Auto) (test code = 713-8) 3.2 0.0-6.0 [facility] LancasterBasophils (%) (Auto)2018-02-04 11:19:00* Test Item Value Reference Range Interpretation Comments Basophils (%) (Auto) (test code = 706-2) 1.0 0.0-1.0 [facility] LancasterIM GRANULOCYTES %2018-02-04 11:19:00* Test Item Value Reference Range Interpretation Comments IM GRANULOCYTES % (test code = IM GRANULOCYTES %) 1.0 0.0- 1.0 [facility] LancasterNeutrophils # (Auto)2018-02-04 11:19:00* Test Item Value Reference Range Interpretation Comments Neutrophils # (Auto) (test code = 751-8) 4.9 2.1-6.9 [facility] LancasterLymphocytes # (Auto)2018-02-04 11:19:00* Test Item Value Reference Range Interpretation Comments Lymphocytes # (Auto) (test code = 36437-1) 1.3 1.0-3.2 [facility] LancasterMonocytes # (Auto)2018-02-04 11:19:00* Test Item Value Reference Range Interpretation Comments Monocytes # (Auto) (test code = 742-7) 0.4 0.2-0.8 [facility] LancasterEosinophils # (Auto)2018-02-04 11:19:00* Test Item Value Reference Range Interpretation Comments Eosinophils # (Auto) (test code = 711-2) 0.2 0.0-0.4 [facility] LancasterBasophils # (Auto)2018-02-04 11:19:00* Test Item Value Reference Range Interpretation Comments Basophils # (Auto) (test code = 704-7) 0.1 0.0-0.1 [facility] LancasterAbsolute Immature Granulocyte (auto 2018-02-04 11:19:00* Test Item Value Reference Range Interpretation Comments Absolute Immature Granulocyte (auto (joseph t code = Absolute Immature Granulocyte (auto) 0.07 0-0.1 [facility] LancasterUrine Arfoo1466-22-07 11:17:00* Test Item Value Reference Range Interpretation Comments Urine Color (test code = 5778-6) YELLOW YELLOW [facility] LancasterUrine Empggod3173-41-62 11:17:00* Test Item Value Reference Range Interpretation Comments Urine Clarity (test code = 02135-1) CLEAR CLEAR [facility] LancasterUrine Specific Dalvsyk8628-81-38 11:17:00 * Test Item Value Reference Range Interpretation Comments Urine Specific [place] (test code = 5811-5) 1.010 1.010-1.02 5 [facility] [id number] 11:17:00* Test Item Value Reference Range Interpretation Comments Urine pH (test code = 73558-7) 6 5-7 [facility] Leukocyte Hgoujxvf5768-30-84 11:17:00* Test Item Value Reference Range Interpretation Comments Urine Leukocyte Esterase (test code = 5799-2) NEGATIVE NEGATIVE [facility] Vrnzjmq8544-60-12 11:17:00* Test Item Value Reference Range Interpretation Comments Urine Nitrite (test code = 12252-6) NEGATIVE NEGATIVE [facility] Hlelhdh5204-09-64 11:17:00* Test Item Value Reference Range Interpretation Comments Urine Protein (test code = 5804-0) NEGATIVE NEGATIVE [facility] Glucose (UA)2018-02-04 11:17:00* Test Item Value Reference Range Interpretation Comments Urine Glucose (UA) (test code = 2349-9) NEGATIVE NEGATIVE [facility] Rfetwps2275-42-97 11:17:00* Test Item Value Reference Range Interpretation Comments Urine Ketones (test code = 62617-7) NEGATIVE NEGATIVE [facility] Opiates Lunsrr1084-36-11 11:17:00* Test Item Value Reference Range Interpretation Comments Urine Opiates Screen (test code = 79564-6) NEGATIVE NEGATIVE [facility] Barbiturates Wjiyzg0088-32-10 11:17:00* Test Item Value Reference Range Interpretation Comments Urine Barbiturates Screen (test code = 861822990) NEGATIVE NEGA TIVE [facility] Phencyclidine Yymjcx7207-58-84 11:17:00* Test Item Value Reference Range Interpretation Comments Urine Phencyclidine Screen (test code = 49949-9) NEGATIVE NEGAT MARY [facility] Amphetamines Iynoed6902-13-60 11:17:00* Test Item Value Reference Range Interpretation Comments Urine Amphetamines Screen (test code = 23713-2) NEGATIVE NEGATI VE [facility] Methamphetamines Tofzlh6162-92-28 11:17:00* Test Item Value Reference Range Interpretation Comments Urine Methamphetamines Screen (test code = Urine Metha mphetamines Screen) NEGATIVE NEGATIVE [facility] Benzodiazepines Zvirbx6437-93-27 11:17:00* Test Item Value Reference Range Interpretation Comments Urine Benzodiazepines Screen (test code = 20337-2) NEGATIVE NEG ATIVE [facility] Cocaine Rtixbf6669-06-77 11:17:00* Test Item Value Reference Range Interpretation Comments Urine Cocaine Screen (test code = 3398-5) NEGATIVE NEGATIVE [facility] Cannabinoids Dbjkop3743-54-87 11:17:00* Test Item Value Reference Range Interpretation Comments Urine Cannabinoids Screen (test code = 04284-8) NEGATIVE NEGATI VE THESE RESULTS ARE FOR MEDICAL TREATMENT ONLYTHIS REPORT CONTAINS UNCONFIR MED SCREENING RESULTS*POSITIVE RESULTS WILL BE CONFIRMED BY REFERENCE LAB UPON R EQUEST CUT-OFFDRUG CLASS CONCENTRATION ng/mLAmphetamines 1000Methamphetamines 1000Cocaine 300Opiate 300Phencyc lidine 25Cannabinoid 50Barbiturates 300Benzodiazepine 300Methadone 300[facility] Kuppqpwcvboi7679-84-74 11:17:00* Test Item Value Reference Range Interpretation Comments Urine Urobilinogen (test code = 49947-0) 0.2 0.2-1 [facility] Ohkhussjk1617-22-48 11:17:00* Test Item Value Reference Range Interpretation Comments Urine Bilirubin (test code = 1978-6) NEGATIVE NEGATIVE [facility] Lpjwi5216-76-39 11:17:00* Test Item Value Reference Range Interpretation Comments Urine Blood (test code = 68842-6) NEGATIVE NEGATIVE [facility] SGC0125-48-79 11:17:00* Test Item Value Reference Range Interpretation Comments Urine WBC (test code = 5821-4) 0-5 0-5 [facility] NXL9122-19-55 11:17:00* Test Item Value Reference Range Interpretation Comments Urine RBC (test code = 68503-7) NONE 0-5 [facility] Mxafptto4946-08-82 11:17:00* Test Item Value Reference Range Interpretation Comments Urine Bacteria (test code = 40370-1) FEW NONE [facility] Epithelial Cwnkp7224-95-68 11:17:00 * Test Item Value Reference Range Interpretation Comments Urine Epithelial Cells (test code = 83793-3) MODERATE NONE [facility] Isbnp8559-22-83 11:17:00* Test Item Value Reference Range Interpretation Comments Urine Mucus (test code = 8247-9) FEW RARE H [facility] Opiates Rjdwwb7260-98-92 11:17:00* Test Item Value Reference Range Interpretation Comments Urine Opiates Screen (test code = 55131-4) NEGATIVE NEGATIVE [facility] Barbiturates Furted3834-10-22 11:17:00* Test Item Value Reference Range Interpretation Comments Urine Barbiturates Screen (test code = 302183217) NEGATIVE NEGA TIVE [facility] Phencyclidine Nuchyv6586-02-34 11:17:00* Test Item Value Reference Range Interpretation Comments Urine Phencyclidine Screen (test code = 28060-0) NEGATIVE NEGAT MARY [facility] Amphetamines Vyolel9180-37-01 11:17:00* Test Item Value Reference Range Interpretation Comments Urine Amphetamines Screen (test code = 71882-0) NEGATIVE NEGATI VE [facility] Methamphetamines Ebkxis7841-43-89 11:17:00* Test Item Value Reference Range Interpretation Comments Urine Methamphetamines Screen (test code = Urine Metha mphetamines Screen) NEGATIVE NEGATIVE [facility] Benzodiazepines Fokstx6152-53-87 11:17:00* Test Item Value Reference Range Interpretation Comments Urine Benzodiazepines Screen (test code = 67919-2) NEGATIVE NEG ATIVE [facility] Cocaine Wrmudh1425-60-26 11:17:00* Test Item Value Reference Range Interpretation Comments Urine Cocaine Screen (test code = 3398-5) NEGATIVE NEGATIVE [facility] Cannabinoids Iunhbi1281-05-12 11:17:00* Test Item Value Reference Range Interpretation Comments Urine Cannabinoids Screen (test code = 30397-9) NEGATIVE NEGATI VE THESE RESULTS ARE FOR MEDICAL TREATMENT ONLYTHIS REPORT CONTAINS UNCONFIR MED SCREENING RESULTS*POSITIVE RESULTS WILL BE CONFIRMED BY REFERENCE LAB UPON R EQUEST CUT-OFFDRUG CLASS CONCENTRATION ng/mLAmphetamines 1000Methamphetamines 1000Cocaine 300Opiate 300Phencyc lidine 25Cannabinoid 50Barbiturates 300Benzodiazepine 300Methadone 300[facility] Hrvrm2865-63-41 11:17:00* Test Item Value Reference Range Interpretation Comments Urine Mucus (test code = 8247-9) FEW RARE H [facility] Opiates Lznxhn5605-69-35 11:17:00* Test Item Value Reference Range Interpretation Comments Urine Opiates Screen (test code = 53279-5) NEGATIVE NEGATIVE [facility] Barbiturates Brmalk5327-85-11 11:17:00* Test Item Value Reference Range Interpretation Comments Urine Barbiturates Screen (test code = 960210386) NEGATIVE NEGA TIVE [facility] Phencyclidine Udncfm5434-43-89 11:17:00* Test Item Value Reference Range Interpretation Comments Urine Phencyclidine Screen (test code = 16300-7) NEGATIVE NEGAT MARY [facility] Amphetamines Khvtxo5460-27-76 11:17:00* Test Item Value Reference Range Interpretation Comments Urine Amphetamines Screen (test code = 41516-4) NEGATIVE NEGATI VE [facility] Methamphetamines Qlviks5122-10-76 11:17:00* Test Item Value Reference Range Interpretation Comments Urine Methamphetamines Screen (test code = Urine Metha mphetamines Screen) NEGATIVE NEGATIVE [facility] Benzodiazepines Yedebr9740-72-92 11:17:00* Test Item Value Reference Range Interpretation Comments Urine Benzodiazepines Screen (test code = 98731-0) NEGATIVE NEG ATIVE [facility] Cocaine Naflhi4045-05-03 11:17:00* Test Item Value Reference Range Interpretation Comments Urine Cocaine Screen (test code = 3398-5) NEGATIVE NEGATIVE [facility] Cannabinoids Fzrihz4215-80-55 11:17:00* Test Item Value Reference Range Interpretation Comments Urine Cannabinoids Screen (test code = 72136-0) NEGATIVE NEGATI VE THESE RESULTS ARE FOR MEDICAL TREATMENT ONLYTHIS REPORT CONTAINS UNCONFIR MED SCREENING RESULTS*POSITIVE RESULTS WILL BE CONFIRMED BY REFERENCE LAB UPON R EQUEST CUT-OFFDRUG CLASS CONCENTRATION ng/mLAmphetamines 1000Methamphetamines 1000Cocaine 300Opiate 300Phencyc lidine 25Cannabinoid 50Barbiturates 300Benzodiazepine 300Methadone 300[facility] Duybu7590-76-61 11:17:00* Test Item Value Reference Range Interpretation Comments Urine Mucus (test code = 8247-9) FEW RARE H [facility] Opiates Nleqjk8885-17-44 11:17:00* Test Item Value Reference Range Interpretation Comments Urine Opiates Screen (test code = 38648-9) NEGATIVE NEGATIVE [facility] Barbiturates Dnpciy1927-16-03 11:17:00* Test Item Value Reference Range Interpretation Comments Urine Barbiturates Screen (test code = 287978865) NEGATIVE NEGA TIVE [facility] Phencyclidine Ywkdaf7608-87-53 11:17:00* Test Item Value Reference Range Interpretation Comments Urine Phencyclidine Screen (test code = 15644-0) NEGATIVE NEGAT MARY [facility] Amphetamines Mmvzsm2101-71-54 11:17:00* Test Item Value Reference Range Interpretation Comments Urine Amphetamines Screen (test code = 92658-5) NEGATIVE NEGATI VE [facility] Methamphetamines Yxmjse5649-32-70 11:17:00* Test Item Value Reference Range Interpretation Comments Urine Methamphetamines Screen (test code = Urine Metha mphetamines Screen) NEGATIVE NEGATIVE [facility] Benzodiazepines Rehvgn7935-60-40 11:17:00* Test Item Value Reference Range Interpretation Comments Urine Benzodiazepines Screen (test code = 52561-0) NEGATIVE NEG ATIVE [facility] Cocaine Kwoxeh6413-19-19 11:17:00* Test Item Value Reference Range Interpretation Comments Urine Cocaine Screen (test code = 3398-5) NEGATIVE NEGATIVE [facility] Cannabinoids Ayuuzz9133-17-19 11:17:00* Test Item Value Reference Range Interpretation Comments Urine Cannabinoids Screen (test code = 76705-3) NEGATIVE NEGATI VE THESE RESULTS ARE FOR MEDICAL TREATMENT ONLYTHIS REPORT CONTAINS UNCONFIR MED SCREENING RESULTS*POSITIVE RESULTS WILL BE CONFIRMED BY REFERENCE LAB UPON R EQUEST CUT-OFFDRUG CLASS CONCENTRATION ng/mLAmphetamines 1000Methamphetamines 1000Cocaine 300Opiate 300Phencyc lidine 25Cannabinoid 50Barbiturates 300Benzodiazepine 300Methadone 300[facility] Ziref7034-55-27 11:17:00* Test Item Value Reference Range Interpretation Comments Urine Mucus (test code = 8247-9) FEW RARE H [facility] Opiates Mzhzvh3947-86-11 11:17:00* Test Item Value Reference Range Interpretation Comments Urine Opiates Screen (test code = 51197-1) NEGATIVE NEGATIVE [facility] Barbiturates Hatljg1301-89-18 11:17:00* Test Item Value Reference Range Interpretation Comments Urine Barbiturates Screen (test code = 387650699) NEGATIVE NEGA TIVE [facility] Phencyclidine Oyzzvy3784-14-49 11:17:00* Test Item Value Reference Range Interpretation Comments Urine Phencyclidine Screen (test code = 19327-4) NEGATIVE NEGAT MARY [facility] Amphetamines Hytyyl5833-92-29 11:17:00* Test Item Value Reference Range Interpretation Comments Urine Amphetamines Screen (test code = 34466-5) NEGATIVE NEGATI VE [facility] Methamphetamines Neerbr5223-43-75 11:17:00* Test Item Value Reference Range Interpretation Comments Urine Methamphetamines Screen (test code = Urine Metha mphetamines Screen) NEGATIVE NEGATIVE [facility] Benzodiazepines Cmzrdk0504-86-39 11:17:00* Test Item Value Reference Range Interpretation Comments Urine Benzodiazepines Screen (test code = 07987-4) NEGATIVE NEG ATIVE [facility] Cocaine Evzvfo5220-21-75 11:17:00* Test Item Value Reference Range Interpretation Comments Urine Cocaine Screen (test code = 3398-5) NEGATIVE NEGATIVE [facility] Cannabinoids Twlkxy5574-97-75 11:17:00* Test Item Value Reference Range Interpretation Comments Urine Cannabinoids Screen (test code = 53176-5) NEGATIVE NEGATI VE THESE RESULTS ARE FOR MEDICAL TREATMENT ONLYTHIS REPORT CONTAINS UNCONFIR MED SCREENING RESULTS*POSITIVE RESULTS WILL BE CONFIRMED BY REFERENCE LAB UPON R EQUEST CUT-OFFDRUG CLASS CONCENTRATION ng/mLAmphetamines 1000Methamphetamines 1000Cocaine 300Opiate 300Phencyc lidine 25Cannabinoid 50Barbiturates 300Benzodiazepine 300Methadone 300[facility] Irfee1606-09-11 11:17:00* Test Item Value Reference Range Interpretation Comments Urine Mucus (test code = 8247-9) FEW RARE H [facility] Lancaster[facility] Natriuretic Tedkbeo0747-26-65 11:08:00* Test Item Value Reference Range Interpretation Comments B-Type Natriuretic Peptide (test code = 44050-7) 29.0 0-100 [facility] Aixja5545-20-69 11:03:00* Test Item Value Reference Range Interpretation Comments Sodium Level (test code = 2951-2) 140 136-145 [facility] Dqvge4092-42-64 11:03:00* Test Item Value Reference Range Interpretation Comments Potassium Level (test code = 2823-3) 3.7 3.5-5.1 [facility] LancasterChloride Ahvcc2367-57-21 11:03:00* Test Item Value Reference Range Interpretation Comments Chloride Level (test code = 2075-0) 100 98-107 [facility] Lancaster[facility] Dioxide Pvnta9852-28-50 11:03:00* Test Item Value Reference Range Interpretation Comments Carbon Dioxide Level (test code = 2028-9) 28 22-29 [facility] LancasterAnion Mvv1540-86-26 11:03:00* Test Item Value Reference Range Interpretation Comments Anion Gap (test code = 54479-4) 15.7 8-16 [facility] LancasterBlood Urea Bgwdcbuj2510-14-16 11:03:00* Test Item Value Reference Range Interpretation Comments Blood Urea Nitrogen (test code = 3094-0) 39 7-26 H [facility] LancasterCreatinine2018-07-15 11:03:00* Test Item Value Reference Range Interpretation Comments Creatinine (test code = 2160-0) 1.29 0.57-1.11 H [facility] LancasterBUN/Creatinine Vonyl1841-28-13 11:03:00* Test Item Value Reference Range Interpretation Comments BUN/Creatinine Ratio (test code = 3097-3) 30 6-25 H [facility] LancasterEstimat Glomerular Filtration Rate 2018-02-04 11:03:00* Test Item Value Reference Range Interpretation Comments Estimat Glomerular Filtration Rate (test code = 40889-2) 42 >60 L Ranges were taken from the National Kidney Disease Education Program and the [facility] Foundation literature.Reference ranges:60 or greater: Jcojdw17-43 ( for 3 consecutive months): Chronic kidney disease 15 or less: Kidney failureCHI [facility] Medical CenterGlucose Wrmsc9583-09-77 11:03:00* Test Item Value Reference Range Interpretation Comments Glucose Level (test code = RVE4685) 155 74-118 H [facility] LancasterCalcium Yoman7749-76-08 11:03:00* Test Item Value Reference Range Interpretation Comments Calcium Level (test code = 55235-0) 9.0 8.4-10.2 [facility] LancasterMagnesium Zkdsw3323-07-40 11:03:00* Test Item Value Reference Range Interpretation Comments Magnesium Level (test code = 68523-4) 1.7 1.3-2.1 [facility] LancasterTotal Waabhnxlp6167-24-90 11:03:00* Test Item Value Reference Range Interpretation Comments Total Bilirubin (test code = 1975-2) 0.4 0.2-1.2 [facility] LancasterAspartate Amino Transf (AST/SGOT) 2018-02-04 11:03:00* Test Item Value Reference Range Interpretation Comments Aspartate Amino Transf (AST/SGOT) (test code = Aspartate Amino Transf (AST/SGOT)) 15 5-34 [facility] LancasterAlanine Aminotransferase (ALT/SGPT) 2018-02-04 11:03:00* Test Item Value Reference Range Interpretation Comments Alanine Aminotransferase (ALT/SGPT) (test code = 1742-6) 20 0-55 [facility] LancasterTotal Xddmclo3090-79-74 11:03:00* Test Item Value Reference Range Interpretation Comments Total Protein (test code = 2885-2) 6.7 6.5-8.1 [facility] LancasterAlbumin2018-07-15 11:03:00* Test Item Value Reference Range Interpretation Comments Albumin (test code = 1751-7) 3.3 3.5-5.0 L [facility] LancasterGlobulin2018-07-15 11:03:00* Test Item Value Reference Range Interpretation Comments Globulin (test code = 51794-6) 3.4 2.3-3.5 [facility] LancasterAlbumin/Globulin Zsceo9510-27-24 11:03:00 * Test Item Value Reference Range Interpretation Comments Albumin/Globulin Ratio (test code = 1759-0) 1.0 0.8-2.0 [facility] LancasterAlkaline Whweegcbgpr7390-99-61 11:03:00* Test Item Value Reference Range Interpretation Comments Alkaline Phosphatase (test code = 6768-6) 63 40-150 [facility] LancasterAmylase Sopcp5046-79-74 11:03:00* Test Item Value Reference Range Interpretation Comments Amylase Level (test code = 1798-8) 30 25-125 [facility] LancasterLipase2018-07-15 11:03:00* Test Item Value Reference Range Interpretation Comments Lipase (test code = 3040-3) 16 8-78 [facility] LancasterMagnesium Bntnd9049-90-63 11:03:00* Test Item Value Reference Range Interpretation Comments Magnesium Level (test code = 79276-5) 1.7 1.3-2.1 [facility] LancasterAmylase Btbxw4614-94-09 11:03:00* Test Item Value Reference Range Interpretation Comments Amylase Level (test code = 1798-8) 30 25-125 [facility] LancasterLipase2018-07-15 11:03:00* Test Item Value Reference Range Interpretation Comments Lipase (test code = 3040-3) 16 8-78 [facility] Gkyue2515-01-30 11:03:00* Test Item Value Reference Range Interpretation Comments Magnesium Level (test code = 70610-5) 1.7 1.3-2.1 [facility] LancasterAmylase Sxxga8943-57-00 11:03:00* Test Item Value Reference Range Interpretation Comments Amylase Level (test code = 1798-8) 30 25-125 [facility] LancasterLipase2018-07-15 11:03:00* Test Item Value Reference Range Interpretation Comments Lipase (test code = 3040-3) 16 [facility] LancasterMagnesium Lgohg8783-91-68 11:03:00* Test Item Value Reference Range Interpretation Comments Magnesium Level (test code = 09497-1) 1.7 1.3-2.1 [facility] LancasterAmylase Yjbkc4324-85-06 11:03:00* Test Item Value Reference Range Interpretation Comments Amylase Level (test code = 1798-8) 30 25-125 [facility] LancasterLipase2018-07-15 11:03:00* Test Item Value Reference Range Interpretation Comments Lipase (test code = 3040-3) 16 [facility] LancasterMagnesium Sosdg0703-70-24 11:03:00* Test Item Value Reference Range Interpretation Comments Magnesium Level (test code = 25322-4) 1.7 1.3-2.1 [facility] LancasterAmylase Drrwp5635-52-93 11:03:00* Test Item Value Reference Range Interpretation Comments Amylase Level (test code = 1798-8) 30 25-125 [facility] LancasterLipase2018-07-15 11:03:00* Test Item Value Reference Range Interpretation Comments Lipase (test code = 3040-3) 16 [facility] LancasterB-Type Natriuretic Svlrxyx3356-12-40 23:54:00* Test Item Value Reference Range Interpretation Comments B-Type Natriuretic Peptide (test code = 79796-0) 38.5 0-100 [facility] LancasterCreatine Kinase JS3082-62-78 23:54:00* Test Item Value Reference Range Interpretation Comments Creatine Kinase MB (test code = 50869-5) 1.10 0-5.0 [facility] LancasterTroponin M9163-79-12 23:54:00* Test Item Value Reference Range Interpretation Comments Troponin I (test code = VOG0344) -0.001 0-0.300 [facility] LancasterUrine SCO6126-22-67 23:42:00* Test Item Value Reference Range Interpretation Comments Urine WBC (test code = 5821-4) 0-5 0-5 [facility] LancasterU[facility] IXP3883-91-32 23:42:00* Test Item Value Reference Range Interpretation Comments Urine RBC (test code = 23621-2) NONE 0-5 [facility] LancasterUrine Tbndfcyd1671-40-80 23:42:00* Test Item Value Reference Range Interpretation Comments Urine Bacteria (test code = 18439-3) RARE NONE [facility] Epithelial Ylmmc4021-08-05 23:42:00 * Test Item Value Reference Range Interpretation Comments Urine Epithelial Cells (test code = 94769-1) RARE NONE [facility] Tqtqw2297-14-31 23:39:00* Test Item Value Reference Range Interpretation Comments Sodium Level (test code = 2951-2) 135 136-145 L [facility] LancasterPotassium Uupwi0531-91-59 23:39:00* Test Item Value Reference Range Interpretation Comments Potassium Level (test code = 2823-3) 4.3 3.5-5.1 [facility] LancasterChloride Kqjpt5002-20-69 23:39:00* Test Item Value Reference Range Interpretation Comments Chloride Level (test code = 2075-0) 99 98-107 [facility] LancasterCarbon Dioxide Dswoy8798-38-78 23:39:00* Test Item Value Reference Range Interpretation Comments Carbon Dioxide Level (test code = 2028-9) 25 22-29 [facility] LancasterAnion Gbe4371-27-21 23:39:00* Test Item Value Reference Range Interpretation Comments Anion Gap (test code = 04218-7) 15.3 8-16 [facility] LancasterBlood Urea Odjsomvk5726-69-88 23:39:00* Test Item Value Reference Range Interpretation Comments Blood Urea Nitrogen (test code = 3094-0) 33 7-26 H [facility] LancasterCreatinine2018-07-11 23:39:00* Test Item Value Reference Range Interpretation Comments Creatinine (test code = 2160-0) 1.41 0.57-1.11 H [facility] LancasterBUN/Creatinine Wnrtg8204-88-33 23:39:00* Test Item Value Reference Range Interpretation Comments BUN/Creatinine Ratio (test code = 3097-3) 23 6-25 [facility] LancasterEstimat Glomerular Filtration Rate 2018-01-31 23:39:00* Test Item Value Reference Range Interpretation Comments Estimat Glomerular Filtration Rate (test code = 51163-8) 38 >60 L Ranges were taken from the National Kidney Disease Education Program and the [facility] Kid[facility] Foundation literature.Reference ranges:60 or greater: Tujmss59-12 ( for 3 consecutive months): Chronic kidney disease 15 or less: Kidney failureC[facility]cent [facility] Center LancasterGlucose Dnkbq1457-12-55 23:39:00* Test Item Value Reference Range Interpretation Comments Glucose Level (test code = YLK6899) 622 74-118 HH Results called to Ann Rodriguez at 2338 on 01/31/18 by Andreea Olivier. [place]. [facility] LancasterCalcium Lzrlw4046-89-51 23:39:00* Test Item Value Reference Range Interpretation Comments Calcium Level (test code = 19076-8) 9.3 8.4-10.2 [facility] LancasterMagnesium Wqvox8795-00-37 23:39:00* Test Item Value Reference Range Interpretation Comments Magnesium Level (test code = 47830-1) 2.0 1.3-2.1 [facility] LancasterTotal Njvrpypnk9406-28-80 23:39:00* Test Item Value Reference Range Interpretation Comments Total Bilirubin (test code = 1975-2) 0.3 0.2-1.2 [facility] LancasterAspartate Amino Transf (AST/SGOT) 2018-01-31 23:39:00* Test Item Value Reference Range Interpretation Comments Aspartate Amino Transf (AST/SGOT) (test code = Aspartate Amino Transf (AST/SGOT)) 10 5-34 [facility] LancasterAlanine Aminotransferase (ALT/SGPT) 2018-01-31 23:39:00* Test Item Value Reference Range Interpretation Comments Alanine Aminotransferase (ALT/SGPT) (test code = 1742-6) 18 0-55 [facility] LancasterTotal Uxnyqrt3968-51-86 23:39:00* Test Item Value Reference Range Interpretation Comments Total Protein (test code = 2885-2) 6.7 6.5-8.1 [facility] LancasterAlbumin2018-07-11 23:39:00* Test Item Value Reference Range Interpretation Comments Albumin (test code = 1751-7) 3.4 3.5-5.0 L [facility] LancasterGlobulin2018-07-11 23:39:00* Test Item Value Reference Range Interpretation Comments Globulin (test code = 31599-7) 3.3 2.3-3.5 [facility] LancasterAlbumin/Globulin Lqozp1626-96-37 23:39:00 * Test Item Value Reference Range Interpretation Comments Albumin/Globulin Ratio (test code = 1759-0) 1.0 0.8-2.0 [facility] LancasterAlkaline Rbfrrhiojkg8715-26-36 23:39:00* Test Item Value Reference Range Interpretation Comments Alkaline Phosphatase (test code = 6768-6) 63 40-150 [facility] LancasterCreatine Ickgun6224-25-18 23:39:00* Test Item Value Reference Range Interpretation Comments Creatine Kinase (test code = 2157-6) 40 29-168 [facility] LancasterProthrombin Yxkn5002-04-80 23:34:00* Test Item Value Reference Range Interpretation Comments Prothrombin Time (test code = 5902-2) 13.5 11.9-14.5 [facility] LancasterProthromb Time International Ratio 2018-01-31 23:34:00* Test Item Value Reference Range Interpretation Comments Prothromb Time International Ratio (test code = 6301-6) 1.11 Oral Anticoagulant Therapy INR Values:1. Low Intensity Therapy 1.5 - 2.02 . Moderate Intensity Therapy 2.0 - 3.03. High Intensity Therapy(1) 2.5 - 3. 54. High Intensity Therapy(2) 3.0 - 4.05. Panic Value INR > 5.0 [facility] LancasterActivated Partial Thromboplast Time 2018-01-31 23:34:00* Test Item Value Reference Range Interpretation Comments Activated Partial Thromboplast Time (test code = 97005-0) 23.4 23.8-35.5 L [facility] LancasterUrine Hhbqh7316-65-47 23:34:00* Test Item Value Reference Range Interpretation Comments Urine Color (test code = 5778-6) YELLOW YELLOW [facility] LancasterUrine Hqhwwgy9129-20-79 23:34:00* Test Item Value Reference Range Interpretation Comments Urine Clarity (test code = 89654-3) CLEAR CLEAR [facility] LancasterUrine Specific Hfmimzc3684-70-26 23:34:00 * Test Item Value Reference Range Interpretation Comments Urine Specific [place] (test code = 5811-5) 1.010 1.010-1.02 5 [facility] LancasterUrine wS6137-14-31 23:34:00* Test Item Value Reference Range Interpretation Comments Urine pH (test code = 96988-9) 6 5-7 [facility] LancasterUrine Leukocyte Kkcjjwum8042-09-79 23:34:00* Test Item Value Reference Range Interpretation Comments Urine Leukocyte Esterase (test code = 5799-2) NEGATIVE NEGATIVE [facility] LancasterUrine Ylolmpj1927-53-01 23:34:00* Test Item Value Reference Range Interpretation Comments Urine Nitrite (test code = 52592-4) NEGATIVE NEGATIVE [facility] LancasterUrine Zwprnor7442-38-27 23:34:00* Test Item Value Reference Range Interpretation Comments Urine Protein (test code = 5804-0) NEGATIVE NEGATIVE [facility] LancasterUrine Glucose (UA)2018-01-31 23:34:00* Test Item Value Reference Range Interpretation Comments Urine Glucose (UA) (test code = 2349-9) 3+ NEGATIVE H [facility] LancasterUrine Oildggr6467-91-23 23:34:00* Test Item Value Reference Range Interpretation Comments Urine Ketones (test code = 30982-4) NEGATIVE NEGATIVE [facility] LancasterUrine Wgblajwzyzrs2755-33-94 23:34:00* Test Item Value Reference Range Interpretation Comments Urine Urobilinogen (test code = 33698-9) 0.2 0.2-1 [facility] LancasterUrine Equifrfll2946-70-03 23:34:00* Test Item Value Reference Range Interpretation Comments Urine Bilirubin (test code = 1978-6) NEGATIVE NEGATIVE [facility] LancasterUrine Kjale7760-70-63 23:34:00* Test Item Value Reference Range Interpretation Comments Urine Blood (test code = 72090-4) NEGATIVE NEGATIVE [facility] LancasterProthrombin Xijg6984-92-54 23:34:00* Test Item Value Reference Range Interpretation Comments Prothrombin Time (test code = 5902-2) 13.5 11.9-14.5 [facility] LancasterProthromb Time International Ratio 2018-01-31 23:34:00* Test Item Value Reference Range Interpretation Comments Prothromb Time International Ratio (test code = 6301-6) 1.11 Oral Anticoagulant Therapy INR Values:1. Low Intensity Therapy 1.5 - 2.02 . Moderate Intensity Therapy 2.0 - 3.03. High Intensity Therapy(1) 2.5 - 3. 54. High Intensity Therapy(2) 3.0 - 4.05. Panic Value INR > 5.0 [facility] LancasterActivated Partial Thromboplast Time 2018-01-31 23:34:00* Test Item Value Reference Range Interpretation Comments Activated Partial Thromboplast Time (test code = 66301-6) 23.4 23.8-35.5 L [facility] LancasterProthrombin Jejs5328-42-82 23:34:00* Test Item Value Reference Range Interpretation Comments Prothrombin Time (test code = 5902-2) 13.5 11.9-14.5 [facility] LancasterProthromb Time International Ratio 2018-01-31 23:34:00* Test Item Value Reference Range Interpretation Comments Prothromb Time International Ratio (test code = 6301-6) 1.11 Oral Anticoagulant Therapy INR Values:1. Low Intensity Therapy 1.5 - 2.02 . Moderate Intensity Therapy 2.0 - 3.03. High Intensity Therapy(1) 2.5 - 3. 54. High Intensity Therapy(2) 3.0 - 4.05. Panic Value INR > 5.0 [facility] LancasterActivated Partial Thromboplast Time 2018-01-31 23:34:00* Test Item Value Reference Range Interpretation Comments Activated Partial Thromboplast Time (test code = 29614-3) 23.4 23.8-35.5 L [facility] LancasterProthrombin Ujry9129-05-25 23:34:00* Test Item Value Reference Range Interpretation Comments Prothrombin Time (test code = 5902-2) 13.5 11.9-14.5 [facility] LancasterProthromb Time International Ratio 2018-01-31 23:34:00* Test Item Value Reference Range Interpretation Comments Prothromb Time International Ratio (test code = 6301-6) 1.11 Oral Anticoagulant Therapy INR Values:1. Low Intensity Therapy 1.5 - 2.02 . Moderate Intensity Therapy 2.0 - 3.03. High Intensity Therapy(1) 2.5 - 3. 54. High Intensity Therapy(2) 3.0 - 4.05. Panic Value INR > 5.0 [facility] LancasterActivated Partial Thromboplast Time 2018-01-31 23:34:00* Test Item Value Reference Range Interpretation Comments Activated Partial Thromboplast Time (test code = 34236-7) 23.4 23.8-35.5 L [facility] LancasterCHEST SINGLE (PORTABLE)2018-01-31 23:25:00 [place] [address] Patient Name: KALYANI TALAVERA MR #: [id number] : 1955 Age/Sex: 62/F Req #: [id number] Adm Physician: Ordered by: FLO TOLBERT MD Report #: [id number] Location: ER Room/Bed: Procedure: [id number] DX/CHEST SINGLE (PORTABLE) E xam Date: 01/31/18 Exam Time: 2300 REPORT STATU S: Signed CHEST SINGLE (PORTABLE), 01/31/2018 10:26 PM Technique: CHEST S JENNIFER (PORTABLE) Comparison: 12/23/2017 Clinical history: Dizziness Findi ngs: See Impression Impression Limited portable view with low lung volu me and motion artifact. Consider upright PA and lateral. 1. Stable enlarged cardiomediastinal silhouette given differences in technique. 2. Low lung volum es with central vascular congestion and/or edema. 3. Elevated right hemidiaphr agm. No significant effusion appreciated. Signed by: Dr Mikey Bee MD o n 01/31/2018 11:27 PM Dictated By: MIKEY BEE MD Electronically Sign ed By: MIKEY BEE MD on 01/31/182326 Transcribed By: JIM on 01/31/182326 COPY TO: FLO TOLBERT MD White Blood Wfznm8281-98-67 23:20:00* Test Item Value Reference Range Interpretation Comments White Blood Count (test code = 6690-2) 5.55 4.8-10.8 [facility] LancasterRed Blood Asgzp4684-49-57 23:20:00* Test Item Value Reference Range Interpretation Comments Red Blood Count (test code = 789-8) 4.21 3.6-5.1 [facility] LancasterHemoglobin2018-07-11 23:20:00* Test Item Value Reference Range Interpretation Comments Hemoglobin (test code = 58573-2) 10.6 12.0-16.0 L [facility] LancasterHematocrit2018-07-11 23:20:00* Test Item Value Reference Range Interpretation Comments Hematocrit (test code = 4544-3) 34.8 34.2-44.1 [facility] LancasterMean Corpuscular Bnfqwd2647-99-68 23:20:00* Test Item Value Reference Range Interpretation Comments Mean Corpuscular Volume (test code = 787-2) 82.7 81-99 [facility] LancasterMean Corpuscular Nnltbxnndo0189-52-07 23:20:00* Test Item Value Reference Range Interpretation Comments Mean Corpuscular Hemoglobin (test code = 785-6) 25.2 28-32 L [facility] LancasterMean Corpuscular Hemoglobin Concent 2018-01-31 23:20:00* Test Item Value Reference Range Interpretation Comments Mean Corpuscular Hemoglobin Concent (test code = 786-4) 30.5 31-35 L [facility] LancasterRed Cell Distribution Ayqou6299-46-39 23:20:00* Test Item Value Reference Range Interpretation Comments Red Cell Distribution Width (test code = 91771-0) 15.5 11.7 -14.4 H [facility] LancasterPlatelet Bwrii3654-69-82 23:20:00* Test Item Value Reference Range Interpretation Comments Platelet Count (test code = 777-3) 176 140-360 [facility] LancasterNeutrophils (%) (Auto)2018-01-31 23:20:00 * Test Item Value Reference Range Interpretation Comments Neutrophils (%) (Auto) (test code = 06300-4) 68.7 38.7-80.0 [facility] LancasterLymphocytes (%) (Auto)2018-01-31 23:20:00 * Test Item Value Reference Range Interpretation Comments Lymphocytes (%) (Auto) (test code = 736-9) 21.8 18.0-39.1 [facility] LancasterMonocytes (%) (Auto)2018-01-31 23:20:00* Test Item Value Reference Range Interpretation Comments Monocytes (%) (Auto) (test code = 5905-5) 5.0 4.4-11.3 [facility] LancasterEosinophils (%) (Auto)2018-01-31 23:20:00 * Test Item Value Reference Range Interpretation Comments Eosinophils (%) (Auto) (test code = 713-8) 2.5 0.0-6.0 [facility] LancasterBasophils (%) (Auto)2018-01-31 23:20:00* Test Item Value Reference Range Interpretation Comments Basophils (%) (Auto) (test code = 706-2) 0.9 0.0-1.0 [facility] LancasterIM GRANULOCYTES %2018-01-31 23:20:00* Test Item Value Reference Range Interpretation Comments IM GRANULOCYTES % (test code = IM GRANULOCYTES %) 1.1 0.0- 1.0 H [facility] LancasterNeutrophils # (Auto)2018-01-31 23:20:00* Test Item Value Reference Range Interpretation Comments Neutrophils # (Auto) (test code = 751-8) 3.8 2.1-6.9 [facility] LancasterLymphocytes # (Auto)2018-01-31 23:20:00* Test Item Value Reference Range Interpretation Comments Lymphocytes # (Auto) (test code = 44609-2) 1.2 1.0-3.2 [facility] LancasterMonocytes # (Auto)2018-01-31 23:20:00* Test Item Value Reference Range Interpretation Comments Monocytes # (Auto) (test code = 742-7) 0.3 0.2-0.8 [facility] LancasterEosinophils # (Auto)2018-01-31 23:20:00* Test Item Value Reference Range Interpretation Comments Eosinophils # (Auto) (test code = 711-2) 0.1 0.0-0.4 [facility] LancasterBasophils # (Auto)2018-01-31 23:20:00* Test Item Value Reference Range Interpretation Comments Basophils # (Auto) (test code = 704-7) 0.1 0.0-0.1 [facility] LancasterAbsolute Immature Granulocyte (auto 2018-01-31 23:20:00* Test Item Value Reference Range Interpretation Comments Absolute Immature Granulocyte (auto (joseph t code = Absolute Immature Granulocyte (auto) 0.06 0-0.1 [facility] Lpkmezu1048-13-19 18:58:00* Test Item Value Reference Range Interpretation Comments Bedside Glucose (test code = 97980-8) 293 70-120 H Meter ID: [id number] [facility] Glucose 2017-12-28 14:17:00* Test Item Value Reference Range Interpretation Comments Bedside Glucose (test code = 22264-0) 330 70-120 H Meter ID: [id number] [facility] CenterKN[facility] THREE GHNSF8410-01-27 10:49:00 [facility] [address] [place] [address] Patient Name: KALYANI TALAVERA MR #: [id number] : 1955 Age/Sex: 62/F Req #: [id number] Adm Physician: BENJAMIN MASTERS MD Ordered by: LUCILLE OLIVO MD Report #: [id number] Location: [facility] Room/Bed: [place] [address] Procedure: [id number] DX/KNEE RIGHT THREE VIEWS Exam Date: 12/27/17 Exam Time: 1015 REPORT STATUS: Signed PROCEDURE: KNEE RIGHT THREE VIEWS TECHNIQUE: AP, lateral and oblique views right knee INDICATION: Fall COM PARISON: None. FINDINGS: Right knee and image regional skeleton are in tact and in anatomic alignment. Mild degenerative changes, with trace osteoph ytes in the medial compartment and small osteophytes in the patellofemoral compartments. Small patellar enthesophytes. CONCLUSION: No evidence of acute traumatic injury. Dictated by: Lachelle Munoz M.D. on 12/27/2017 at 10:49 Electronically approved by: Lachelle Singh on 12/27/2017 at 10:49 Dictated By: LACHELLE MUNOZ MD Elec tronically Signed By: LACHELLE MUNOZ MD on 12/27/17 1049 Transcribed By: ZOLTAN on 12/27/17 1049 COPY TO: LUCILLE OLIVO MD Sodium Level 2017-12-25 09:24:00* Test Item Value Reference Range Interpretation Comments Sodium Level (test code = 2951-2) 137 136-145 [facility] LancasterPotassium Vtpqp6400-23-21 09:24:00* Test Item Value Reference Range Interpretation Comments Potassium Level (test code = 2823-3) 4.5 3.5-5.1 [facility] LancasterChloride Mliag2105-49-81 09:24:00* Test Item Value Reference Range Interpretation Comments Chloride Level (test code = 2075-0) 102 98-107 [facility] LancasterCarbon Dioxide Cgzvu1572-23-93 09:24:00* Test Item Value Reference Range Interpretation Comments Carbon Dioxide Level (test code = 2028-9) 28 22-29 [facility] LancasterAnion Tqj3407-15-79 09:24:00* Test Item Value Reference Range Interpretation Comments Anion Gap (test code = 78673-5) 11.5 8-16 [facility] LancasterBlood Urea Rzxyhfwt9508-10-33 09:24:00* Test Item Value Reference Range Interpretation Comments Blood Urea Nitrogen (test code = 3094-0) 21 7-26 [facility] LancasterCreatinine2018-06-04 09:24:00* Test Item Value Reference Range Interpretation Comments Creatinine (test code = 2160-0) 1.09 0.57-1.11 [facility] LancasterBUN/Creatinine Lsozy4573-62-39 09:24:00* Test Item Value Reference Range Interpretation Comments BUN/Creatinine Ratio (test code = 3097-3) 19 6-25 [facility] LancasterEstimat Glomerular Filtration Rate 2017-12-25 09:24:00* Test Item Value Reference Range Interpretation Comments Estimat Glomerular Filtration Rate (test code = 01946-9) 51 >60 L Ranges were taken from the National Kidney Disease Education Program and the [facility] Foundation literature.Reference ranges:60 or greater: Inhnyk21-13 ( for 3 consecutive months): Chronic kidney disease 15 or less: Kidney failureCrescent Medical Center LancasterGlucose Bscbn7938-53-63 09:24:00* Test Item Value Reference Range Interpretation Comments Glucose Level (test code = QSH4726) 458 74-118 HH Results called to RANCHO CONTI RN at 0924 on 12/25/17 by Audi Manriquez. RB OK.Thi s test has been rerun and double checked for accuracy.[facility] LancasterCalcium Vcvbm8822-32-65 09:24:00* Test Item Value Reference Range Interpretation Comments Calcium Level (test code = 40143-8) 9.0 8.4-10.2 [facility] LancasterCreatine Kinase GV2400-99-52 16:42:00* Test Item Value Reference Range Interpretation Comments Creatine Kinase MB (test code = 76544-3) 2.60 0-5.0 [facility] LancasterTroponin A7264-95-22 16:42:00* Test Item Value Reference Range Interpretation Comments Troponin I (test code = VXO7922) -0.001 0-0.300 [facility] LancasterCreatine Dcrkbd1589-53-13 16:36:00* Test Item Value Reference Range Interpretation Comments Creatine Kinase (test code = 2157-6) 60 29-168 [facility] LancasterTotal Ijfoiwtay5278-03-86 08:48:00* Test Item Value Reference Range Interpretation Comments Total Bilirubin (test code = 1975-2) 0.3 0.2-1.2 [facility] LancasterAspartate Amino Transf (AST/SGOT) 2017-12-24 08:48:00* Test Item Value Reference Range Interpretation Comments Aspartate Amino Transf (AST/SGOT) (test code = Aspartate Amino Transf (AST/SGOT)) 23 5-34 [facility] LancasterAlanine Aminotransferase (ALT/SGPT) 2017-12-24 08:48:00* Test Item Value Reference Range Interpretation Comments Alanine Aminotransferase (ALT/SGPT) (test code = 1742-6) 45 0-55 [facility] LancasterTotal Hzbmwbz7053-66-69 08:48:00* Test Item Value Reference Range Interpretation Comments Total Protein (test code = 2885-2) 6.3 6.5-8.1 L [facility] LancasterAlbumin2018-06-03 08:48:00* Test Item Value Reference Range Interpretation Comments Albumin (test code = 1751-7) 3.2 3.5-5.0 L [facility] LancasterGlobulin2018-06-03 08:48:00* Test Item Value Reference Range Interpretation Comments Globulin (test code = 27069-8) 3.1 2.3-3.5 [facility] LancasterAlbumin/Globulin Ucdew6422-05-25 08:48:00 * Test Item Value Reference Range Interpretation Comments Albumin/Globulin Ratio (test code = 1759-0) 1.0 0.8-2.0 [facility] LancasterAlkaline Mxmnjtpqqwx7305-96-30 08:48:00* Test Item Value Reference Range Interpretation Comments Alkaline Phosphatase (test code = 6768-6) 71 40-150 [facility] LancasterTriglycerides Vmwsa5418-96-62 08:48:00* Test Item Value Reference Range Interpretation Comments Triglycerides Level (test code = 2571-8) 218 0-149 H [facility] LancasterCholesterol Xejka1023-12-05 08:48:00* Test Item Value Reference Range Interpretation Comments Cholesterol Level (test code = 2093-3) 168 0-199 Less than 200 mg/dL Low Fltt926 - 239 mg/dL Borderline Ibbn215 m g/dl and greater High Risk [facility] LancasterLDL Mtoyruuvjek1719-49-02 08:48:00* Test Item Value Reference Range Interpretation Comments LDL Cholesterol (test code = 2089-1) 96 60-130 [facility] LancasterHDL Xbttmhmhyzp9557-99-88 08:48:00* Test Item Value Reference Range Interpretation Comments HDL Cholesterol (test code = 2085-9) 28 40-60 L [facility] LancasterCholesterol/HDL Jhvlw6958-61-77 08:48:00 * Test Item Value Reference Range Interpretation Comments Cholesterol/HDL Ratio (test code = 9830-1) 6.0 3.0-3.6 H [facility] LancasterTriglycerides Fskfl6493-76-44 08:48:00* Test Item Value Reference Range Interpretation Comments Triglycerides Level (test code = 2571-8) 218 0-149 H [facility] LancasterCholesterol Hqvua9365-18-06 08:48:00* Test Item Value Reference Range Interpretation Comments Cholesterol Level (test code = 2093-3) 168 0-199 Less than 200 mg/dL Low Lotw298 - 239 mg/dL Borderline Tlxa641 m g/dl and greater High Risk [facility] LancasterLDL Felygstaoon3898-65-69 08:48:00* Test Item Value Reference Range Interpretation Comments LDL Cholesterol (test code = 2089-1) 96 60-130 [facility] LancasterHDL Omgoatfnykw6282-48-36 08:48:00* Test Item Value Reference Range Interpretation Comments HDL Cholesterol (test code = 2085-9) 28 40-60 L [facility] LancasterCholesterol/HDL Pcxuq6623-33-58 08:48:00 * Test Item Value Reference Range Interpretation Comments Cholesterol/HDL Ratio (test code = 9830-1) 6.0 3.0-3.6 H [facility] LancasterWhite Blood Gtnad0144-86-51 08:25:00* Test Item Value Reference Range Interpretation Comments White Blood Count (test code = 6690-2) 3.93 4.8-10.8 L [facility] LancasterRed Blood Vkmip3453-52-01 08:25:00* Test Item Value Reference Range Interpretation Comments Red Blood Count (test code = 789-8) 4.06 3.6-5.1 [facility] LancasterHemoglobin2018-06-03 08:25:00* Test Item Value Reference Range Interpretation Comments Hemoglobin (test code = 52118-3) 10.2 12.0-16.0 L [facility] LancasterHematocrit2018-06-03 08:25:00* Test Item Value Reference Range Interpretation Comments Hematocrit (test code = 4544-3) 34.0 34.2-44.1 L [facility] LancasterMean Corpuscular Kcxjrr8979-74-33 08:25:00* Test Item Value Reference Range Interpretation Comments Mean Corpuscular Volume (test code = 787-2) 83.7 81-99 [facility] LancasterMean Corpuscular Ufrjugpcoj5743-36-93 08:25:00* Test Item Value Reference Range Interpretation Comments Mean Corpuscular Hemoglobin (test code = 785-6) 25.1 28-32 L [facility] LancasterMean Corpuscular Hemoglobin Concent 2017-12-24 08:25:00* Test Item Value Reference Range Interpretation Comments Mean Corpuscular Hemoglobin Concent (test code = 786-4) 30.0 31-35 L [facility] LancasterRed Cell Distribution Aqpil4928-07-59 08:25:00* Test Item Value Reference Range Interpretation Comments Red Cell Distribution Width (test code = 24023-9) 15.2 11.7 -14.4 H [facility] LancasterPlatelet Dlhxn7168-88-68 08:25:00* Test Item Value Reference Range Interpretation Comments Platelet Count (test code = 777-3) 169 140-360 [facility] LancasterNeutrophils (%) (Auto)2017-12-24 08:25:00 * Test Item Value Reference Range Interpretation Comments Neutrophils (%) (Auto) (test code = 66172-9) 59.0 38.7-80.0 [facility] LancasterLymphocytes (%) (Auto)2017-12-24 08:25:00 * Test Item Value Reference Range Interpretation Comments Lymphocytes (%) (Auto) (test code = 736-9) 27.5 18.0-39.1 [facility] LancasterMonocytes (%) (Auto)2017-12-24 08:25:00* Test Item Value Reference Range Interpretation Comments Monocytes (%) (Auto) (test code = 5905-5) 6.6 4.4-11.3 [facility] LancasterEosinophils (%) (Auto)2017-12-24 08:25:00 * Test Item Value Reference Range Interpretation Comments Eosinophils (%) (Auto) (test code = 713-8) 4.8 0.0-6.0 [facility] LancasterBasophils (%) (Auto)2017-12-24 08:25:00* Test Item Value Reference Range Interpretation Comments Basophils (%) (Auto) (test code = 706-2) 1.3 0.0-1.0 H [facility] LancasterIM GRANULOCYTES %2017-12-24 08:25:00* Test Item Value Reference Range Interpretation Comments IM GRANULOCYTES % (test code = IM GRANULOCYTES %) 0.8 0.0- 1.0 [facility] LancasterNeutrophils # (Auto)2017-12-24 08:25:00* Test Item Value Reference Range Interpretation Comments Neutrophils # (Auto) (test code = 751-8) 2.3 2.1-6.9 [facility] LancasterLymphocytes # (Auto)2017-12-24 08:25:00* Test Item Value Reference Range Interpretation Comments Lymphocytes # (Auto) (test code = 48925-4) 1.1 1.0-3.2 [facility] LancasterMonocytes # (Auto)2017-12-24 08:25:00* Test Item Value Reference Range Interpretation Comments Monocytes # (Auto) (test code = 742-7) 0.3 0.2-0.8 [facility] LancasterEosinophils # (Auto)2017-12-24 08:25:00* Test Item Value Reference Range Interpretation Comments Eosinophils # (Auto) (test code = 711-2) 0.2 0.0-0.4 [facility] LancasterBasophils # (Auto)2017-12-24 08:25:00* Test Item Value Reference Range Interpretation Comments Basophils # (Auto) (test code = 704-7) 0.1 0.0-0.1 [facility] LancasterAbsolute Immature Granulocyte (auto 2017-12-24 08:25:00* Test Item Value Reference Range Interpretation Comments Absolute Immature Granulocyte (auto (joseph t code = Absolute Immature Granulocyte (auto) 0.03 0-0.1 [facility] LancasterB-Type Natriuretic Rkywhpj9485-53-78 23:03:00* Test Item Value Reference Range Interpretation Comments B-Type Natriuretic Peptide (test code = 59180-0) 125.0 0-100 H [facility] LancasterThyroid Stimulating Hormone (TSH) 2017-12-23 22:39:00* Test Item Value Reference Range Interpretation Comments Thyroid Stimulating Hormone (TSH) (test code = 12913-8) 0.865 0.350-4.940 [facility] LancasterThyroid Stimulating Hormone (TSH) 2017-12-23 22:39:00* Test Item Value Reference Range Interpretation Comments Thyroid Stimulating Hormone (TSH) (test code = 43399-8) 0.865 0.350-4.940 [facility] LancasterThyroid Stimulating Hormone (TSH) 2017-12-23 22:39:00* Test Item Value Reference Range Interpretation Comments Thyroid Stimulating Hormone (TSH) (test code = 12125-4) 0.865 0.350-4.940 [facility] LancasterThyroid Stimulating Hormone (TSH) 2017-12-23 22:39:00* Test Item Value Reference Range Interpretation Comments Thyroid Stimulating Hormone (TSH) (test code = 41155-3) 0.865 0.350-4.940 [facility] [facility] 2017-12-23 22:39:00* Test Item Value Reference Range Interpretation Comments Thyroid Stimulating Hormone (TSH) (test code = 29183-2) 0.865 0.350-4.940 [facility] 2017-12-23 22:39:00* Test Item Value Reference Range Interpretation Comments Thyroid Stimulating Hormone (TSH) (test code = 15831-8) 0.865 0.350-4.940 [facility]TSH[facility] 2017-12-23 22:39:00* Test Item Value Reference Range Interpretation Comments Thyroid Stimulating Hormone (TSH) (test code = 89848-3) 0.865 0.350-4.940 [facility] [id number] 22:23:00* Test Item Value Reference Range Interpretation Comments Urine WBC (test code = 5821-4) 0-5 0-5 [facility] [id number] 22:23:00* Test Item Value Reference Range Interpretation Comments Urine RBC (test code = 87049-3) 0-5 0-5 [facility] Eubnebyg3272-37-94 22:23:00* Test Item Value Reference Range Interpretation Comments Urine Bacteria (test code = 46878-4) RARE NONE [facility] Epithelial Sopaf1084-42-21 22:23:00 * Test Item Value Reference Range Interpretation Comments Urine Epithelial Cells (test code = 77494-8) RARE NONE [facility] Zhwro0853-27-94 22:04:00* Test Item Value Reference Range Interpretation Comments Urine Color (test code = 5778-6) YELLOW YELLOW [facility] Qaqppdv9888-91-93 22:04:00* Test Item Value Reference Range Interpretation Comments Urine Clarity (test code = 10708-9) CLEAR CLEAR [facility] Lancaster[facility] Specific Aqfowlt8009-57-76 22:04:00 * Test Item Value Reference Range Interpretation Comments Urine Specific [place] (test code = 5811-5) 1.010 1.010-1.02 5 [facility] [id number] 22:04:00* Test Item Value Reference Range Interpretation Comments Urine pH (test code = 54959-2) 6 5-7 [facility] Leukocyte Mwykiugq7514-24-95 22:04:00* Test Item Value Reference Range Interpretation Comments Urine Leukocyte Esterase (test code = 5799-2) NEGATIVE NEGATIVE [facility] Ykvtjkn1466-39-46 22:04:00* Test Item Value Reference Range Interpretation Comments Urine Nitrite (test code = 90244-9) NEGATIVE NEGATIVE [facility] Ybnxjkz7951-44-90 22:04:00* Test Item Value Reference Range Interpretation Comments Urine Protein (test code = 5804-0) NEGATIVE NEGATIVE [facility] Glucose (UA)2017-12-23 22:04:00* Test Item Value Reference Range Interpretation Comments Urine Glucose (UA) (test code = 2349-9) 3+ NEGATIVE H [facility] Gqhzrda6426-67-51 22:04:00* Test Item Value Reference Range Interpretation Comments Urine Ketones (test code = 97490-8) NEGATIVE NEGATIVE [facility] Lrpgjrvqvyrr5168-39-86 22:04:00* Test Item Value Reference Range Interpretation Comments Urine Urobilinogen (test code = 99569-3) 0.2 0.2-1 [facility] Lancaster[facility] Iihaskahx7014-57-51 22:04:00* Test Item Value Reference Range Interpretation Comments Urine Bilirubin (test code = 1978-6) NEGATIVE NEGATIVE [facility] Qriso7914-85-32 22:04:00* Test Item Value Reference Range Interpretation Comments Urine Blood (test code = 93321-3) NEGATIVE NEGATIVE [facility] LancasterMagnesium Vdstf7654-90-64 22:03:00* Test Item Value Reference Range Interpretation Comments Magnesium Level (test code = 76234-1) 1.8 1.3-2.1 [facility] LancasterProthrombin Mvge2047-04-58 21:58:00* Test Item Value Reference Range Interpretation Comments Prothrombin Time (test code = 5902-2) 13.6 11.9-14.5 [facility] LancasterProthromb Time International Ratio 2017-12-23 21:58:00* Test Item Value Reference Range Interpretation Comments Prothromb Time International Ratio (test code = 6301-6) 1.13 Oral Anticoagulant Therapy INR Values:1. Low Intensity Therapy 1.5 - 2.02 . Moderate Intensity Therapy 2.0 - 3.03. High Intensity Therapy(1) 2.5 - 3. 54. High Intensity Therapy(2) 3.0 - 4.05. Panic Value INR > 5.0 [facility] LancasterActivated Partial Thromboplast Time 2017-12-23 21:58:00* Test Item Value Reference Range Interpretation Comments Activated Partial Thromboplast Time (test code = 25965-6) 23.8 23.8-35.5 [facility] Zrorguo6118-88-95 00:04:00* Test Item Value Reference Range Interpretation Comments Blood Culture (test code = 66375596) NO GROWTH AFTER 5 DAYS, FINAL REPORT [facility]2018-03-27 00:04:00* Test Item Value Reference Range Interpretation Comments Blood Culture (test code = 25152224) NO GROWTH AFTER 5 DAYS, FINAL REPORT [facility] Tnwmgdp0000-25-55 00:04:00* Test Item Value Reference Range Interpretation Comments Blood Culture (test code = 31607562) NO GROWTH AFTER 5 DAYS, FINAL REPORT [facility]2018-03-27 00:04:00* Test Item Value Reference Range Interpretation Comments Blood Culture (test code = 49241001) NO GROWTH AFTER 5 DAYS, FINAL REPORT [facility]2018-03-27 00:04:00* Test Item Value Reference Range Interpretation Comments Blood Culture (test code = 82460120) NO GROWTH AFTER 5 DAYS, FINAL REPORT [facility] Rjkgpos7541-39-11 00:04:00* Test Item Value Reference Range Interpretation Comments Blood Culture (test code = 57907005) NO GROWTH AFTER 5 DAYS, FINAL REPORT [facility]2018-03-27 00:04:00* Test Item Value Reference Range Interpretation Comments Blood Culture (test code = 38601676) NO GROWTH AFTER 5 DAYS, FINAL REPORT [facility] Ylfqhct9443-52-91 00:04:00* Test Item Value Reference Range Interpretation Comments Blood Culture (test code = 64463056) NO GROWTH AFTER 5 DAYS, FINAL REPORT [facility] Ujkzkyb9685-64-39 00:04:00* Test Item Value Reference Range Interpretation Comments Blood Culture (test code = 69936460) NO GROWTH AFTER 5 DAYS, FINAL REPORT [facility] Dxvnd4807-18-47 00:58:00* Test Item Value Reference Range Interpretation Comments Sodium Level (test code = 2951-2) 137 136-145 [facility] Qwhvw5311-72-13 00:58:00* Test Item Value Reference Range Interpretation Comments Potassium Level (test code = 2823-3) 4.1 3.5-5.1 [facility] LancasterChloride Lhprf6170-94-62 00:58:00* Test Item Value Reference Range Interpretation Comments Chloride Level (test code = 2075-0) 105 98-107 [facility] LancasterCarbon Dioxide Rkqre6139-03-16 00:58:00* Test Item Value Reference Range Interpretation Comments Carbon Dioxide Level (test code = 2028-9) 21 22-29 L [facility] LancasterAnion Kpf4624-01-85 00:58:00* Test Item Value Reference Range Interpretation Comments Anion Gap (test code = 09335-5) 15.1 8-16 [facility] LancasterBlood Urea Mhrekmgs9336-07-23 00:58:00* Test Item Value Reference Range Interpretation Comments Blood Urea Nitrogen (test code = 3094-0) 37 7-26 H [facility] LancasterCreatinine2018-03-22 00:58:00* Test Item Value Reference Range Interpretation Comments Creatinine (test code = 2160-0) 1.54 0.57-1.11 H [facility] LancasterBUN/Creatinine Lsdsh4008-75-31 00:58:00* Test Item Value Reference Range Interpretation Comments BUN/Creatinine Ratio (test code = 3097-3) 24 6-25 [facility] LancasterEstimat Glomerular Filtration Rate 2017-10-12 00:58:00* Test Item Value Reference Range Interpretation Comments Estimat Glomerular Filtration Rate (test code = 04094-6) 34 >60 L Ranges were taken from the National Kidney Disease Education Program and the [facility] literature.Reference ranges:60 or greater: Cqwbqo69-39 ( for 3 consecutive months): Chronic kidney disease 15 or less: Kidney failureCrescent Medical Center LancasterGlucose Qtvmb5248-89-93 00:58:00* Test Item Value Reference Range Interpretation Comments Glucose Level (test code = IOA1220) 286 74-118 H [facility] LancasterCalcium Cmqsk9959-28-63 00:58:00* Test Item Value Reference Range Interpretation Comments Calcium Level (test code = 35233-8) 8.7 8.4-10.2 [facility] LancasterMagnesium Dgumr3820-77-94 00:58:00* Test Item Value Reference Range Interpretation Comments Magnesium Level (test code = 34730-6) 1.6 1.3-2.1 [facility] LancasterTotal Ncqyvjhkp7197-88-60 00:58:00* Test Item Value Reference Range Interpretation Comments Total Bilirubin (test code = 1975-2) 0.3 0.2-1.2 [facility] LancasterAspartate Amino Transf (AST/SGOT) 2017-10-12 00:58:00* Test Item Value Reference Range Interpretation Comments Aspartate Amino Transf (AST/SGOT) (test code = Aspartate Amino Transf (AST/SGOT)) 22 5-34 [facility] LancasterAlanine Aminotransferase (ALT/SGPT) 2017-10-12 00:58:00* Test Item Value Reference Range Interpretation Comments Alanine Aminotransferase (ALT/SGPT) (test code = 1742-6) 24 0-55 [facility] LancasterTotal Sjgedkd7045-05-26 00:58:00* Test Item Value Reference Range Interpretation Comments Total Protein (test code = 2885-2) 6.5 6.5-8.1 [facility] LancasterAlbumin2018-03-22 00:58:00* Test Item Value Reference Range Interpretation Comments Albumin (test code = 1751-7) 3.2 3.5-5.0 L [facility] LancasterGlobulin2018-03-22 00:58:00* Test Item Value Reference Range Interpretation Comments Globulin (test code = 41078-2) 3.3 2.3-3.5 [facility] LancasterAlbumin/Globulin Sxtrk5404-31-47 00:58:00 * Test Item Value Reference Range Interpretation Comments Albumin/Globulin Ratio (test code = 1759-0) 1.0 0.8-2.0 [facility] LancasterAlkaline Hskrynlhxil8188-78-84 00:58:00* Test Item Value Reference Range Interpretation Comments Alkaline Phosphatase (test code = 6768-6) 69 40-150 [facility] LancasterB-Type Natriuretic Liqahah1537-57-69 00:58:00* Test Item Value Reference Range Interpretation Comments B-Type Natriuretic Peptide (test code = 49703-1) 46.4 0-100 [facility] LancasterCreatine Ifnvpl0803-64-48 00:58:00* Test Item Value Reference Range Interpretation Comments Creatine Kinase (test code = 2157-6) 86 29-168 [facility] LancasterCreatine Kinase MP5384-91-43 00:58:00* Test Item Value Reference Range Interpretation Comments Creatine Kinase MB (test code = 75839-8) 3.00 0-5.0 [facility] LancasterTroponin G2896-90-93 00:58:00* Test Item Value Reference Range Interpretation Comments Troponin I (test code = SVE1240) -0.001 0-0.300 [facility] Cdeke0361-60-35 00:58:00* Test Item Value Reference Range Interpretation Comments Sodium Level (test code = 2951-2) 137 136-145 [facility] LancasterPotassium Fovkr2287-35-14 00:58:00* Test Item Value Reference Range Interpretation Comments Potassium Level (test code = 2823-3) 4.1 3.5-5.1 [facility] LancasterChloride Qcccz2853-46-73 00:58:00* Test Item Value Reference Range Interpretation Comments Chloride Level (test code = 2075-0) 105 98-107 [facility] LancasterCarbon Dioxide Lrixb4622-82-76 00:58:00* Test Item Value Reference Range Interpretation Comments Carbon Dioxide Level (test code = 2028-9) 21 22-29 L [facility] LancasterAnion Sfe8087-88-83 00:58:00* Test Item Value Reference Range Interpretation Comments Anion Gap (test code = 86237-5) 15.1 8-16 [facility] LancasterBlood Urea Ceisvouc7651-18-63 00:58:00* Test Item Value Reference Range Interpretation Comments Blood Urea Nitrogen (test code = 3094-0) 37 7-26 H [facility] LancasterCreatinine2018-03-22 00:58:00* Test Item Value Reference Range Interpretation Comments Creatinine (test code = 2160-0) 1.54 0.57-1.11 H [facility] LancasterBUN/Creatinine Aquru0218-36-92 00:58:00* Test Item Value Reference Range Interpretation Comments BUN/Creatinine Ratio (test code = 3097-3) 24 6-25 [facility] LancasterEstimat Glomerular Filtration Rate 2017-10-12 00:58:00* Test Item Value Reference Range Interpretation Comments Estimat Glomerular Filtration Rate (test code = 17526-5) 34 >60 L Ranges were taken from the National Kidney Disease Education Program and the [facility] Foundation literature.Reference ranges:60 or greater: Nblrdq39-70 ( for 3 consecutive months): Chronic kidney disease 15 or less: Kidney failureCHI [facility] CenterGlucose Nloxu1966-96-31 00:58:00* Test Item Value Reference Range Interpretation Comments Glucose Level (test code = SPD9985) 286 74-118 H [facility] LancasterCalcium Qbqts1740-84-48 00:58:00* Test Item Value Reference Range Interpretation Comments Calcium Level (test code = 63382-9) 8.7 8.4-10.2 [facility] LancasterMagnesium Izcbv4479-75-07 00:58:00* Test Item Value Reference Range Interpretation Comments Magnesium Level (test code = 93162-4) 1.6 1.3-2.1 [facility] LancasterTotal Iuqvtiezf4393-43-25 00:58:00* Test Item Value Reference Range Interpretation Comments Total Bilirubin (test code = 1975-2) 0.3 0.2-1.2 [facility] LancasterAspartate Amino Transf (AST/SGOT) 2017-10-12 00:58:00* Test Item Value Reference Range Interpretation Comments Aspartate Amino Transf (AST/SGOT) (test code = Aspartate Amino Transf (AST/SGOT)) 22 5-34 [facility] LancasterAlanine Aminotransferase (ALT/SGPT) 2017-10-12 00:58:00* Test Item Value Reference Range Interpretation Comments Alanine Aminotransferase (ALT/SGPT) (test code = 1742-6) 24 0-55 [facility] LancasterTotal Ivrkyyh7229-54-22 00:58:00* Test Item Value Reference Range Interpretation Comments Total Protein (test code = 2885-2) 6.5 6.5-8.1 [facility] LancasterAlbumin2018-03-22 00:58:00* Test Item Value Reference Range Interpretation Comments Albumin (test code = 1751-7) 3.2 3.5-5.0 L [facility] LancasterGlobulin2018-03-22 00:58:00* Test Item Value Reference Range Interpretation Comments Globulin (test code = 29813-0) 3.3 2.3-3.5 [facility] LancasterAlbumin/Globulin Axkcz4093-14-34 00:58:00 * Test Item Value Reference Range Interpretation Comments Albumin/Globulin Ratio (test code = 1759-0) 1.0 0.8-2.0 [facility] LancasterAlkaline Xkocexeeapz7638-55-66 00:58:00* Test Item Value Reference Range Interpretation Comments Alkaline Phosphatase (test code = 6768-6) 69 40-150 [facility] LancasterB-Type Natriuretic Tofkxar7380-17-52 00:58:00* Test Item Value Reference Range Interpretation Comments B-Type Natriuretic Peptide (test code = 22376-7) 46.4 0-100 [facility] LancasterCreatine Qhupsw3477-41-84 00:58:00* Test Item Value Reference Range Interpretation Comments Creatine Kinase (test code = 2157-6) 86 29-168 [facility] LancasterCreatine Kinase OS0202-58-28 00:58:00* Test Item Value Reference Range Interpretation Comments Creatine Kinase MB (test code = 91025-6) 3.00 0-5.0 [facility] LancasterTroponin Z6510-87-22 00:58:00* Test Item Value Reference Range Interpretation Comments Troponin I (test code = MSP5315) -0.001 0-0.300 [facility]view[facility] Pvqaw7707-46-33 00:58:00* Test Item Value Reference Range Interpretation Comments Sodium Level (test code = 2951-2) 137 136-145 [facility] LancasterPotassium Riart4276-57-78 00:58:00* Test Item Value Reference Range Interpretation Comments Potassium Level (test code = 2823-3) 4.1 3.5-5.1 [facility] LancasterChloride Fxoxa8033-80-39 00:58:00* Test Item Value Reference Range Interpretation Comments Chloride Level (test code = 2075-0) 105 98-107 [facility] LancasterCarbon Dioxide Tmklm7059-21-85 00:58:00* Test Item Value Reference Range Interpretation Comments Carbon Dioxide Level (test code = 2028-9) 21 22-29 L [facility] LancasterAnion Bcn7040-96-44 00:58:00* Test Item Value Reference Range Interpretation Comments Anion Gap (test code = 01419-7) 15.1 8-16 [facility] LancasterBlood Urea Utbemymp2352-53-96 00:58:00* Test Item Value Reference Range Interpretation Comments Blood Urea Nitrogen (test code = 3094-0) 37 7-26 H [facility] LancasterCreatinine2018-03-22 00:58:00* Test Item Value Reference Range Interpretation Comments Creatinine (test code = 2160-0) 1.54 0.57-1.11 H [facility] LancasterBUN/Creatinine Mlauy0633-04-44 00:58:00* Test Item Value Reference Range Interpretation Comments BUN/Creatinine Ratio (test code = 3097-3) 24 6-25 [facility] LancasterEstimat Glomerular Filtration Rate 2017-10-12 00:58:00* Test Item Value Reference Range Interpretation Comments Estimat Glomerular Filtration Rate (test code = 55568-3) 34 >60 L Ranges were taken from the National Kidney Disease Education Program and the [facility] Foundation literature.Reference ranges:60 or greater: Ffpxua67-33 ( for 3 consecutive months): Chronic kidney disease 15 or less: Kidney failureCrescent Medical Center LancasterGlucose Jvidr2478-69-04 00:58:00* Test Item Value Reference Range Interpretation Comments Glucose Level (test code = OGW1057) 286 74-118 H [facility] LancasterCalcium Zppmc0164-94-04 00:58:00* Test Item Value Reference Range Interpretation Comments Calcium Level (test code = 11881-2) 8.7 8.4-10.2 [facility] LancasterMagnesium Oayox3870-54-42 00:58:00* Test Item Value Reference Range Interpretation Comments Magnesium Level (test code = 92931-3) 1.6 1.3-2.1 [facility] LancasterTotal Irrnmyzjr6536-80-70 00:58:00* Test Item Value Reference Range Interpretation Comments Total Bilirubin (test code = 1975-2) 0.3 0.2-1.2 [facility] LancasterAspartate Amino Transf (AST/SGOT) 2017-10-12 00:58:00* Test Item Value Reference Range Interpretation Comments Aspartate Amino Transf (AST/SGOT) (test code = Aspartate Amino Transf (AST/SGOT)) 22 5-34 [facility] LancasterAlanine Aminotransferase (ALT/SGPT) 2017-10-12 00:58:00* Test Item Value Reference Range Interpretation Comments Alanine Aminotransferase (ALT/SGPT) (test code = 1742-6) 24 0-55 [facility] LancasterTotal Qoyecve2379-87-17 00:58:00* Test Item Value Reference Range Interpretation Comments Total Protein (test code = 2885-2) 6.5 6.5-8.1 [facility] LancasterAlbumin2018-03-22 00:58:00* Test Item Value Reference Range Interpretation Comments Albumin (test code = 1751-7) 3.2 3.5-5.0 L [facility] LancasterGlobulin2018-03-22 00:58:00* Test Item Value Reference Range Interpretation Comments Globulin (test code = 83726-9) 3.3 2.3-3.5 [facility] LancasterAlbumin/Globulin Fzjji9343-08-46 00:58:00 * Test Item Value Reference Range Interpretation Comments Albumin/Globulin Ratio (test code = 1759-0) 1.0 0.8-2.0 [facility] LancasterAlkaline Cxxtgiuuqrp6719-76-97 00:58:00* Test Item Value Reference Range Interpretation Comments Alkaline Phosphatase (test code = 6768-6) 69 40-150 [facility] LancasterB-Type Natriuretic Sqmovhs5606-67-62 00:58:00* Test Item Value Reference Range Interpretation Comments B-Type Natriuretic Peptide (test code = 52607-7) 46.4 0-100 [facility] LancasterCreatine Qeuurg9714-35-89 00:58:00* Test Item Value Reference Range Interpretation Comments Creatine Kinase (test code = 2157-6) 86 29-168 [facility] LancasterCreatine Kinase RC3141-01-69 00:58:00* Test Item Value Reference Range Interpretation Comments Creatine Kinase MB (test code = 91812-4) 3.00 0-5.0 [facility] LancasterTroponin A1537-76-18 00:58:00* Test Item Value Reference Range Interpretation Comments Troponin I (test code = DVG2413) -0.001 0-0.300 [facility] LancasterLactic Acid Fakvw0074-77-80 00:40:00* Test Item Value Reference Range Interpretation Comments Lactic Acid Level (test code = Lactic Acid Level) 14.6 4.5- 19.8 [facility] LancasterLactic Acid Nmkqn2431-12-03 00:40:00* Test Item Value Reference Range Interpretation Comments Lactic Acid Level (test code = Lactic Acid Level) 14.6 4.5- 19.8 [facility] LancasterLactic Acid Urumu6935-75-41 00:40:00* Test Item Value Reference Range Interpretation Comments Lactic Acid Level (test code = Lactic Acid Level) 14.6 4.5- 19.8 [facility] LancasterLactic Acid Qurad4567-96-71 00:40:00* Test Item Value Reference Range Interpretation Comments Lactic Acid Level (test code = Lactic Acid Level) 14.6 4.5- 19.8 [facility] LancasterLactic Acid Jefar6071-31-82 00:40:00* Test Item Value Reference Range Interpretation Comments Lactic Acid Level (test code = Lactic Acid Level) 14.6 4.5- 19.8 [facility] LancasterLactic Acid Vpjii3065-98-44 00:40:00* Test Item Value Reference Range Interpretation Comments Lactic Acid Level (test code = Lactic Acid Level) 14.6 4.5- 19.8 [facility] LancasterLactic Acid Kfmmq7838-76-09 00:40:00* Test Item Value Reference Range Interpretation Comments Lactic Acid Level (test code = Lactic Acid Level) 14.6 4.5- 19.8 [facility] LancasterLactic Acid Izzym1155-97-49 00:40:00* Test Item Value Reference Range Interpretation Comments Lactic Acid Level (test code = Lactic Acid Level) 14.6 4.5- 19.8 [facility] VHW7746-05-18 00:38:00* Test Item Value Reference Range Interpretation Comments Urine WBC (test code = 5821-4) 0-5 0-5 [facility] QLR0090-19-15 00:38:00* Test Item Value Reference Range Interpretation Comments Urine RBC (test code = 97401-3) 0-5 0-5 [facility] LancasterUrine Idsgsldb2747-10-10 00:38:00* Test Item Value Reference Range Interpretation Comments Urine Bacteria (test code = 92072-2) RARE NONE [facility] LancasterUrine Epithelial Mykvj2868-36-94 00:38:00 * Test Item Value Reference Range Interpretation Comments Urine Epithelial Cells (test code = 43914-2) FEW NONE [facility] LancasterUrine CSD4726-30-78 00:38:00* Test Item Value Reference Range Interpretation Comments Urine WBC (test code = 5821-4) 0-5 0-5 [facility] LancasterUrine ROQ6829-07-50 00:38:00* Test Item Value Reference Range Interpretation Comments Urine RBC (test code = 64740-8) 0-5 0-5 [facility] LancasterUrine Tcfpheub2394-22-37 00:38:00* Test Item Value Reference Range Interpretation Comments Urine Bacteria (test code = 76881-8) RARE NONE [facility] LancasterUrine Epithelial Xofzi1141-42-56 00:38:00 * Test Item Value Reference Range Interpretation Comments Urine Epithelial Cells (test code = 40544-7) FEW NONE [facility] LancasterUrine HAW9924-31-29 00:38:00* Test Item Value Reference Range Interpretation Comments Urine WBC (test code = 5821-4) 0-5 0-5 [facility] LancasterU[facility] DTW6409-58-17 00:38:00* Test Item Value Reference Range Interpretation Comments Urine RBC (test code = 31191-7) 0-5 0-5 [facility] LancasterUrine Wzrudkyn5045-29-05 00:38:00* Test Item Value Reference Range Interpretation Comments Urine Bacteria (test code = 60237-4) RARE NONE [facility] LancasterUrine Epithelial Cfvtb3465-31-82 00:38:00 * Test Item Value Reference Range Interpretation Comments Urine Epithelial Cells (test code = 22466-1) FEW NONE [facility] LancasterProthrombin Unbh9836-32-41 00:31:00* Test Item Value Reference Range Interpretation Comments Prothrombin Time (test code = 5902-2) 12.5 11.9-14.5 [facility] LancasterProthromb Time International Ratio 2017-10-12 00:31:00* Test Item Value Reference Range Interpretation Comments Prothromb Time International Ratio (test code = 6301-6) 1.01 Oral Anticoagulant Therapy INR Values:1. Low Intensity Therapy 1.5 - 2.02 . Moderate Intensity Therapy 2.0 - 3.03. High Intensity Therapy(1) 2.5 - 3. 54. High Intensity Therapy(2) 3.0 - 4.05. Panic Value INR > 5.0 [facility] LancasterAct[facility] Partial Thromboplast Time 2017-10-12 00:31:00* Test Item Value Reference Range Interpretation Comments Activated Partial Thromboplast Time (test code = 01152-5) 17.7 23.8-35.5 L [facility] LancasterProthrombin Hjeo3890-75-45 00:31:00* Test Item Value Reference Range Interpretation Comments Prothrombin Time (test code = 5902-2) 12.5 11.9-14.5 [facility] LancasterProthromb Time International Ratio 2017-10-12 00:31:00* Test Item Value Reference Range Interpretation Comments Prothromb Time International Ratio (test code = 6301-6) 1.01 Oral Anticoagulant Therapy INR Values:1. Low Intensity Therapy 1.5 - 2.02 . Moderate Intensity Therapy 2.0 - 3.03. High Intensity Therapy(1) 2.5 - 3. 54. High Intensity Therapy(2) 3.0 - 4.05. Panic Value INR > 5.0 [facility] LancasterAct[facility] Partial Thromboplast Time 2017-10-12 00:31:00* Test Item Value Reference Range Interpretation Comments Activated Partial Thromboplast Time (test code = 26362-3) 17.7 23.8-35.5 L [facility] LancasterProthrombin Khlr0370-11-79 00:31:00* Test Item Value Reference Range Interpretation Comments Prothrombin Time (test code = 5902-2) 12.5 11.9-14.5 [facility] LancasterProthromb Time International Ratio 2017-10-12 00:31:00* Test Item Value Reference Range Interpretation Comments Prothromb Time International Ratio (test code = 6301-6) 1.01 Oral Anticoagulant Therapy INR Values:1. Low Intensity Therapy 1.5 - 2.02 . Moderate Intensity Therapy 2.0 - 3.03. High Intensity Therapy(1) 2.5 - 3. 54. High Intensity Therapy(2) 3.0 - 4.05. Panic Value INR > 5.0 [facility] LancasterAct[facility] Partial Thromboplast Time 2017-10-12 00:31:00* Test Item Value Reference Range Interpretation Comments Activated Partial Thromboplast Time (test code = 63892-7) 17.7 23.8-35.5 L [facility] LancasterWhite Blood Scmbg4400-21-33 00:19:00* Test Item Value Reference Range Interpretation Comments White Blood Count (test code = 6690-2) 6.20 4.8-10.8 [facility] LancasterRed Blood Uqyal3815-38-27 00:19:00* Test Item Value Reference Range Interpretation Comments Red Blood Count (test code = 789-8) 4.11 3.6-5.1 [facility] LancasterHemoglobin2018-03-22 00:19:00* Test Item Value Reference Range Interpretation Comments Hemoglobin (test code = 26647-0) 10.7 12.0-16.0 L [facility] LancasterHematocrit2018-03-22 00:19:00* Test Item Value Reference Range Interpretation Comments Hematocrit (test code = 4544-3) 35.7 34.2-44.1 [facility] LancasterMean Corpuscular Gtkopw6573-53-01 00:19:00* Test Item Value Reference Range Interpretation Comments Mean Corpuscular Volume (test code = 787-2) 86.9 81-99 [facility] LancasterMean Corpuscular Goepadgqch3535-50-89 00:19:00* Test Item Value Reference Range Interpretation Comments Mean Corpuscular Hemoglobin (test code = 785-6) 26.0 28-32 L [facility] LancasterMean Corpuscular Hemoglobin Concent 2017-10-12 00:19:00* Test Item Value Reference Range Interpretation Comments Mean Corpuscular Hemoglobin Concent (test code = 786-4) 30.0 31-35 L [facility] LancasterRed Cell Distribution Yrfci5241-83-52 00:19:00* Test Item Value Reference Range Interpretation Comments Red Cell Distribution Width (test code = 79536-6) 15.1 11.7 -14.4 H [facility] LancasterPlatelet Qymen2077-48-05 00:19:00* Test Item Value Reference Range Interpretation Comments Platelet Count (test code = 777-3) 186 140-360 [facility] LancasterNeutrophils (%) (Auto)2017-10-12 00:19:00 * Test Item Value Reference Range Interpretation Comments Neutrophils (%) (Auto) (test code = 45723-8) 65.3 38.7-80.0 [facility] LancasterLymphocytes (%) (Auto)2017-10-12 00:19:00 * Test Item Value Reference Range Interpretation Comments Lymphocytes (%) (Auto) (test code = 736-9) 24.5 18.0-39.1 [facility] LancasterMonocytes (%) (Auto)2017-10-12 00:19:00* Test Item Value Reference Range Interpretation Comments Monocytes (%) (Auto) (test code = 5905-5) 5.5 4.4-11.3 [facility] LancasterEosinophils (%) (Auto)2017-10-12 00:19:00 * Test Item Value Reference Range Interpretation Comments Eosinophils (%) (Auto) (test code = 713-8) 2.7 0.0-6.0 [facility] LancasterBasophils (%) (Auto)2017-10-12 00:19:00* Test Item Value Reference Range Interpretation Comments Basophils (%) (Auto) (test code = 706-2) 1.0 0.0-1.0 [facility] LancasterIM GRANULOCYTES %2017-10-12 00:19:00* Test Item Value Reference Range Interpretation Comments IM GRANULOCYTES % (test code = IM GRANULOCYTES %) 1.0 0.0- 1.0 [facility] LancasterNeutrophils # (Auto)2017-10-12 00:19:00* Test Item Value Reference Range Interpretation Comments Neutrophils # (Auto) (test code = 751-8) 4.1 2.1-6.9 [facility] LancasterLymphocytes # (Auto)2017-10-12 00:19:00* Test Item Value Reference Range Interpretation Comments Lymphocytes # (Auto) (test code = 59686-7) 1.5 1.0-3.2 [facility] LancasterMonocytes # (Auto)2017-10-12 00:19:00* Test Item Value Reference Range Interpretation Comments Monocytes # (Auto) (test code = 742-7) 0.3 0.2-0.8 [facility] LancasterEosinophils # (Auto)2017-10-12 00:19:00* Test Item Value Reference Range Interpretation Comments Eosinophils # (Auto) (test code = 711-2) 0.2 0.0-0.4 [facility] LancasterBasophils # (Auto)2017-10-12 00:19:00* Test Item Value Reference Range Interpretation Comments Basophils # (Auto) (test code = 704-7) 0.1 0.0-0.1 [facility] LancasterAbsolute Immature Granulocyte (auto 2017-10-12 00:19:00* Test Item Value Reference Range Interpretation Comments Absolute Immature Granulocyte (auto (joseph t code = Absolute Immature Granulocyte (auto) 0.06 0-0.1 [facility] LancasterUrine Atmqf7746-23-79 00:19:00* Test Item Value Reference Range Interpretation Comments Urine Color (test code = 5778-6) YELLOW YELLOW [facility] LancasterUrine Xilbyxx3827-37-32 00:19:00* Test Item Value Reference Range Interpretation Comments Urine Clarity (test code = 86339-6) CLEAR CLEAR [facility] LancasterUrine Specific Fqwvirb6729-74-28 00:19:00 * Test Item Value Reference Range Interpretation Comments Urine Specific [place] (test code = 5811-5) 1.020 1.010-1.02 5 [facility] LancasterUrine kC4760-40-03 00:19:00* Test Item Value Reference Range Interpretation Comments Urine pH (test code = 24825-4) 5 5-7 [facility] LancasterUrine Leukocyte Mykewqbm2416-79-17 00:19:00* Test Item Value Reference Range Interpretation Comments Urine Leukocyte Esterase (test code = 5799-2) NEGATIVE NEGATIVE [facility] LancasterUrine Pauwaxq1352-14-62 00:19:00* Test Item Value Reference Range Interpretation Comments Urine Nitrite (test code = 12779-7) NEGATIVE NEGATIVE [facility] LancasterUrine Fzgbiyb0372-80-74 00:19:00* Test Item Value Reference Range Interpretation Comments Urine Protein (test code = 5804-0) NEGATIVE NEGATIVE [facility] LancasterUrine Glucose (UA)2017-10-12 00:19:00* Test Item Value Reference Range Interpretation Comments Urine Glucose (UA) (test code = 2349-9) 3+ NEGATIVE H [facility] LancasterUrine Glcpohq9165-62-95 00:19:00* Test Item Value Reference Range Interpretation Comments Urine Ketones (test code = 21739-1) NEGATIVE NEGATIVE [facility] LancasterUrine Mbesfzarhzkq6041-92-85 00:19:00* Test Item Value Reference Range Interpretation Comments Urine Urobilinogen (test code = 77567-4) 0.2 0.2-1 [facility] LancasterUrine Nvnfluobt8043-20-22 00:19:00* Test Item Value Reference Range Interpretation Comments Urine Bilirubin (test code = 1978-6) NEGATIVE NEGATIVE [facility] LancasterUrine Aqokg8964-01-99 00:19:00* Test Item Value Reference Range Interpretation Comments Urine Blood (test code = 47929-6) 1+ NEGATIVE H [facility] LancasterWhite Blood Seule9779-91-14 00:19:00* Test Item Value Reference Range Interpretation Comments White Blood Count (test code = 6690-2) 6.20 4.8-10.8 [facility] LancasterRed Blood Oahny8664-71-50 00:19:00* Test Item Value Reference Range Interpretation Comments Red Blood Count (test code = 789-8) 4.11 3.6-5.1 [facility] LancasterHemoglobin2018-03-22 00:19:00* Test Item Value Reference Range Interpretation Comments Hemoglobin (test code = 58763-9) 10.7 12.0-16.0 L [facility] LancasterHematocrit2018-03-22 00:19:00* Test Item Value Reference Range Interpretation Comments Hematocrit (test code = 4544-3) 35.7 34.2-44.1 [facility] LancasterMean Corpuscular Bypswt7795-44-83 00:19:00* Test Item Value Reference Range Interpretation Comments Mean Corpuscular Volume (test code = 787-2) 86.9 81-99 [facility] LancasterMean Corpuscular Rkcsifodqk8916-23-22 00:19:00* Test Item Value Reference Range Interpretation Comments Mean Corpuscular Hemoglobin (test code = 785-6) 26.0 28-32 L [facility] LancasterMean Corpuscular Hemoglobin Concent 2017-10-12 00:19:00* Test Item Value Reference Range Interpretation Comments Mean Corpuscular Hemoglobin Concent (test code = 786-4) 30.0 31-35 L [facility] LancasterRed Cell Distribution Xojyk4023-75-99 00:19:00* Test Item Value Reference Range Interpretation Comments Red Cell Distribution Width (test code = 95072-8) 15.1 11.7 -14.4 H [facility] LancasterPlatelet Amflw5330-20-24 00:19:00* Test Item Value Reference Range Interpretation Comments Platelet Count (test code = 777-3) 186 140-360 [facility] LancasterNeutrophils (%) (Auto)2017-10-12 00:19:00 * Test Item Value Reference Range Interpretation Comments Neutrophils (%) (Auto) (test code = 27850-5) 65.3 38.7-80.0 [facility] LancasterLymphocytes (%) (Auto)2017-10-12 00:19:00 * Test Item Value Reference Range Interpretation Comments Lymphocytes (%) (Auto) (test code = 736-9) 24.5 18.0-39.1 [facility] LancasterMonocytes (%) (Auto)2017-10-12 00:19:00* Test Item Value Reference Range Interpretation Comments Monocytes (%) (Auto) (test code = 5905-5) 5.5 4.4-11.3 [facility] LancasterEosinophils (%) (Auto)2017-10-12 00:19:00 * Test Item Value Reference Range Interpretation Comments Eosinophils (%) (Auto) (test code = 713-8) 2.7 0.0-6.0 [facility] LancasterBasophils (%) (Auto)2017-10-12 00:19:00* Test Item Value Reference Range Interpretation Comments Basophils (%) (Auto) (test code = 706-2) 1.0 0.0-1.0 [facility] LancasterIM GRANULOCYTES %2017-10-12 00:19:00* Test Item Value Reference Range Interpretation Comments IM GRANULOCYTES % (test code = IM GRANULOCYTES %) 1.0 0.0- 1.0 [facility] LancasterNeutrophils # (Auto)2017-10-12 00:19:00* Test Item Value Reference Range Interpretation Comments Neutrophils # (Auto) (test code = 751-8) 4.1 2.1-6.9 [facility] LancasterLymphocytes # (Auto)2017-10-12 00:19:00* Test Item Value Reference Range Interpretation Comments Lymphocytes # (Auto) (test code = 98197-5) 1.5 1.0-3.2 [facility] LancasterMonocytes # (Auto)2017-10-12 00:19:00* Test Item Value Reference Range Interpretation Comments Monocytes # (Auto) (test code = 742-7) 0.3 0.2-0.8 [facility] LancasterEosinophils # (Auto)2017-10-12 00:19:00* Test Item Value Reference Range Interpretation Comments Eosinophils # (Auto) (test code = 711-2) 0.2 0.0-0.4 [facility] LancasterBasophils # (Auto)2017-10-12 00:19:00* Test Item Value Reference Range Interpretation Comments Basophils # (Auto) (test code = 704-7) 0.1 0.0-0.1 [facility] LancasterAbsolute Immature Granulocyte (auto 2017-10-12 00:19:00* Test Item Value Reference Range Interpretation Comments Absolute Immature Granulocyte (auto (joseph t code = Absolute Immature Granulocyte (auto) 0.06 0-0.1 [facility] LancasterUrine Mhbtm9304-63-55 00:19:00* Test Item Value Reference Range Interpretation Comments Urine Color (test code = 5778-6) YELLOW YELLOW [facility] LancasterUrine Jipjalt4716-41-58 00:19:00* Test Item Value Reference Range Interpretation Comments Urine Clarity (test code = 56555-6) CLEAR CLEAR [facility] LancasterUrine Specific Przfdud3155-69-27 00:19:00 * Test Item Value Reference Range Interpretation Comments Urine Specific [place] (test code = 5811-5) 1.020 1.010-1.02 5 [facility] LancasterUrine fO0843-48-06 00:19:00* Test Item Value Reference Range Interpretation Comments Urine pH (test code = 91252-3) 5 5-7 [facility] LancasterUrine Leukocyte Taudptla5693-44-23 00:19:00* Test Item Value Reference Range Interpretation Comments Urine Leukocyte Esterase (test code = 5799-2) NEGATIVE NEGATIVE [facility] LancasterUrine Hhtumgo1152-88-98 00:19:00* Test Item Value Reference Range Interpretation Comments Urine Nitrite (test code = 02789-9) NEGATIVE NEGATIVE [facility] LancasterUrine Czqvfod6849-40-98 00:19:00* Test Item Value Reference Range Interpretation Comments Urine Protein (test code = 5804-0) NEGATIVE NEGATIVE [facility] LancasterUrine Glucose (UA)2017-10-12 00:19:00* Test Item Value Reference Range Interpretation Comments Urine Glucose (UA) (test code = 2349-9) 3+ NEGATIVE H [facility] LancasterUrine Satgsad3634-38-24 00:19:00* Test Item Value Reference Range Interpretation Comments Urine Ketones (test code = 51411-4) NEGATIVE NEGATIVE [facility] LancasterUrine Pacgilqeftcu0308-71-18 00:19:00* Test Item Value Reference Range Interpretation Comments Urine Urobilinogen (test code = 73622-7) 0.2 0.2-1 [facility] LancasterUrine Wxdgllnpm6836-71-92 00:19:00* Test Item Value Reference Range Interpretation Comments Urine Bilirubin (test code = 1978-6) NEGATIVE NEGATIVE [facility] LancasterUrine Ebjqk0377-13-53 00:19:00* Test Item Value Reference Range Interpretation Comments Urine Blood (test code = 59482-2) 1+ NEGATIVE H [facility] LancasterWhite Blood Xcgvl0033-05-30 00:19:00* Test Item Value Reference Range Interpretation Comments White Blood Count (test code = 6690-2) 6.20 4.8-10.8 [facility] LancasterRed Blood Wsfth6146-18-17 00:19:00* Test Item Value Reference Range Interpretation Comments Red Blood Count (test code = 789-8) 4.11 3.6-5.1 [facility] LancasterHemoglobin2018-03-22 00:19:00* Test Item Value Reference Range Interpretation Comments Hemoglobin (test code = 77181-8) 10.7 12.0-16.0 L [facility] LancasterHematocrit2018-03-22 00:19:00* Test Item Value Reference Range Interpretation Comments Hematocrit (test code = 4544-3) 35.7 34.2-44.1 [facility] LancasterMean Corpuscular Xnqdus8218-44-64 00:19:00* Test Item Value Reference Range Interpretation Comments Mean Corpuscular Volume (test code = 787-2) 86.9 81-99 [facility] LancasterMean Corpuscular Wlxxxzzskm0324-16-45 00:19:00* Test Item Value Reference Range Interpretation Comments Mean Corpuscular Hemoglobin (test code = 785-6) 26.0 28-32 L [facility] LancasterMean Corpuscular Hemoglobin Concent 2017-10-12 00:19:00* Test Item Value Reference Range Interpretation Comments Mean Corpuscular Hemoglobin Concent (test code = 786-4) 30.0 31-35 L [facility] LancasterRed Cell Distribution Ezzdq8552-91-21 00:19:00* Test Item Value Reference Range Interpretation Comments Red Cell Distribution Width (test code = 29348-8) 15.1 11.7 -14.4 H [facility] LancasterPlatelet Lyvve5852-58-38 00:19:00* Test Item Value Reference Range Interpretation Comments Platelet Count (test code = 777-3) 186 140-360 [facility] LancasterNeutrophils (%) (Auto)2017-10-12 00:19:00 * Test Item Value Reference Range Interpretation Comments Neutrophils (%) (Auto) (test code = 92003-0) 65.3 38.7-80.0 [facility] LancasterLymphocytes (%) (Auto)2017-10-12 00:19:00 * Test Item Value Reference Range Interpretation Comments Lymphocytes (%) (Auto) (test code = 736-9) 24.5 18.0-39.1 [facility] LancasterMonocytes (%) (Auto)2017-10-12 00:19:00* Test Item Value Reference Range Interpretation Comments Monocytes (%) (Auto) (test code = 5905-5) 5.5 4.4-11.3 [facility] LancasterEosinophils (%) (Auto)2017-10-12 00:19:00 * Test Item Value Reference Range Interpretation Comments Eosinophils (%) (Auto) (test code = 713-8) 2.7 0.0-6.0 [facility] LancasterBasophils (%) (Auto)2017-10-12 00:19:00* Test Item Value Reference Range Interpretation Comments Basophils (%) (Auto) (test code = 706-2) 1.0 0.0-1.0 [facility] LancasterIM GRANULOCYTES %2017-10-12 00:19:00* Test Item Value Reference Range Interpretation Comments IM GRANULOCYTES % (test code = IM GRANULOCYTES %) 1.0 0.0- 1.0 [facility] LancasterNeutrophils # (Auto)2017-10-12 00:19:00* Test Item Value Reference Range Interpretation Comments Neutrophils # (Auto) (test code = 751-8) 4.1 2.1-6.9 [facility] LancasterLymphocytes # (Auto)2017-10-12 00:19:00* Test Item Value Reference Range Interpretation Comments Lymphocytes # (Auto) (test code = 10725-3) 1.5 1.0-3.2 [facility] LancasterMonocytes # (Auto)2017-10-12 00:19:00* Test Item Value Reference Range Interpretation Comments Monocytes # (Auto) (test code = 742-7) 0.3 0.2-0.8 [facility] LancasterEosinophils # (Auto)2017-10-12 00:19:00* Test Item Value Reference Range Interpretation Comments Eosinophils # (Auto) (test code = 711-2) 0.2 0.0-0.4 [facility] LancasterBasophils # (Auto)2017-10-12 00:19:00* Test Item Value Reference Range Interpretation Comments Basophils # (Auto) (test code = 704-7) 0.1 0.0-0.1 [facility] LancasterAbsolute Immature Granulocyte (auto 2017-10-12 00:19:00* Test Item Value Reference Range Interpretation Comments Absolute Immature Granulocyte (auto (joseph t code = Absolute Immature Granulocyte (auto) 0.06 0-0.1 [facility] LancasterUrine Wnink5089-59-45 00:19:00* Test Item Value Reference Range Interpretation Comments Urine Color (test code = 5778-6) YELLOW YELLOW [facility] LancasterUrine Tmkinoh6157-90-08 00:19:00* Test Item Value Reference Range Interpretation Comments Urine Clarity (test code = 20069-8) CLEAR CLEAR [facility] LancasterUrine Specific Uctdcya6203-55-98 00:19:00 * Test Item Value Reference Range Interpretation Comments Urine Specific [place] (test code = 5811-5) 1.020 1.010-1.02 5 [facility] LancasterUrine mO6347-78-91 00:19:00* Test Item Value Reference Range Interpretation Comments Urine pH (test code = 58766-9) 5 5-7 [facility] LancasterUrine Leukocyte Psrxwuxr2011-01-94 00:19:00* Test Item Value Reference Range Interpretation Comments Urine Leukocyte Esterase (test code = 5799-2) NEGATIVE NEGATIVE [facility] LancasterUrine Zwiozja6513-46-89 00:19:00* Test Item Value Reference Range Interpretation Comments Urine Nitrite (test code = 68241-2) NEGATIVE NEGATIVE [facility] LancasterUrine Urbmbhx3323-19-77 00:19:00* Test Item Value Reference Range Interpretation Comments Urine Protein (test code = 5804-0) NEGATIVE NEGATIVE [facility] LancasterUrine Glucose (UA)2017-10-12 00:19:00* Test Item Value Reference Range Interpretation Comments Urine Glucose (UA) (test code = 2349-9) 3+ NEGATIVE H [facility] LancasterUrine Ohkcfkb8524-55-37 00:19:00* Test Item Value Reference Range Interpretation Comments Urine Ketones (test code = 36673-9) NEGATIVE NEGATIVE [facility] LancasterUrine Mftqhxpzshfj5653-33-20 00:19:00* Test Item Value Reference Range Interpretation Comments Urine Urobilinogen (test code = 98126-7) 0.2 0.2-1 [facility] LancasterUrine Smtaufwor4917-60-49 00:19:00* Test Item Value Reference Range Interpretation Comments Urine Bilirubin (test code = 1978-6) NEGATIVE NEGATIVE [facility] LancasterUrine Uskry8314-64-23 00:19:00* Test Item Value Reference Range Interpretation Comments Urine Blood (test code = 08440-8) 1+ NEGATIVE H [facility] Cxtnirr8675-11-90 11:00:00* Test Item Value Reference Range Interpretation Comments Blood Culture (test code = 06230754) NO GROWTH AFTER 5 DAYS, FINAL REPORT [facility] Nfuywrg2373-92-96 11:00:00* Test Item Value Reference Range Interpretation Comments Blood Culture (test code = 96381275) NO GROWTH AFTER 5 DAYS, FINAL REPORT [facility] Ljgehps2265-15-37 12:28:00* Test Item Value Reference Range Interpretation Comments Bedside Glucose (test code = 37261-2) 113 70-120 Meter ID: [id number] Memorial Hospital Glucose 2017-09-29 12:28:00* Test Item Value Reference Range Interpretation Comments Bedside Glucose (test code = 94560-4) 113 70-120 Meter ID: [id number] Memorial Hospital Glucose 2017-09-29 12:28:00* Test Item Value Reference Range Interpretation Comments Bedside Glucose (test code = 14119-6) 113 70-120 Meter ID: [id number] Memorial Hospital Glucose 2017-09-29 12:28:00* Test Item Value Reference Range Interpretation Comments Bedside Glucose (test code = 20232-3) 113 70-120 Meter ID: [id number] Houston Healthcare Pearlandside Glucose 2017-09-29 12:28:00* Test Item Value Reference Range Interpretation Comments Bedside Glucose (test code = 90751-0) 113 70-120 Meter ID: [id number] Health Plainviewodium Level 2017-09-29 08:38:00* Test Item Value Reference Range Interpretation Comments Sodium Level (test code = 2951-2) 138 136-145 [facility] LancasterPotassium Bszfk4547-04-15 08:38:00* Test Item Value Reference Range Interpretation Comments Potassium Level (test code = 2823-3) 3.7 3.5-5.1 [facility] LancasterChloride Pahxh4223-17-86 08:38:00* Test Item Value Reference Range Interpretation Comments Chloride Level (test code = 2075-0) 94 98-107 L [facility] LancasterCarbon Dioxide Gvsqj8747-07-41 08:38:00* Test Item Value Reference Range Interpretation Comments Carbon Dioxide Level (test code = 2028-9) 29 22-29 [facility] LancasterAnion Vww5000-47-89 08:38:00* Test Item Value Reference Range Interpretation Comments Anion Gap (test code = 62618-5) 18.7 8-16 H [facility] LancasterBlood Urea Ljgjcpos5299-78-63 08:38:00* Test Item Value Reference Range Interpretation Comments Blood Urea Nitrogen (test code = 3094-0) 25 7-26 [facility] LancasterCreatinine2018 08:38:00* Test Item Value Reference Range Interpretation Comments Creatinine (test code = 2160-0) 1.00 0.57-1.11 [facility] LancasterBUN/Creatinine Jmstn1400-25-24 08:38:00* Test Item Value Reference Range Interpretation Comments BUN/Creatinine Ratio (test code = 3097-3) 25 6-25 [facility] LancasterEstimat Glomerular Filtration Rate 2017-09-29 08:38:00* Test Item Value Reference Range Interpretation Comments Estimat Glomerular Filtration Rate (test code = 34300-9) 56 >60 L Ranges were taken from the National Kidney Disease Education Program and the [employer] literature.Reference ranges:60 or greater: Arilvm74-51 ( for 3 consecutive months): Chronic kidney disease 15 or less: Kidney failureCrescent Medical Center LancasterGlucose Egdxf6787-63-73 08:38:00* Test Item Value Reference Range Interpretation Comments Glucose Level (test code = LYQ2897) 290 74-118 H [facility] LancasterCalcium Cchol9242-72-18 08:38:00* Test Item Value Reference Range Interpretation Comments Calcium Level (test code = 64466-7) 9.4 8.4-10.2 [facility]viewodium Kssbf3214-61-85 08:38:00* Test Item Value Reference Range Interpretation Comments Sodium Level (test code = 2951-2) 138 136-145 [facility] LancasterPotassium Nzzlu8636-29-89 08:38:00* Test Item Value Reference Range Interpretation Comments Potassium Level (test code = 2823-3) 3.7 3.5-5.1 [facility] [facility]Chloride [id number] 08:38:00* Test Item Value Reference Range Interpretation Comments Chloride Level (test code = 2075-0) 94 98-107 L [facility] LancasterCarbon Dioxide [id number] 08:38:00* Test Item Value Reference Range Interpretation Comments Carbon Dioxide Level (test code = 2028-9) 29 22-29 [facility] LancasterAnion [id number] 08:38:00* Test Item Value Reference Range Interpretation Comments Anion Gap (test code = 06213-3) 18.7 8-16 H [facility] LancasterBlood Urea [id number] 08:38:00* Test Item Value Reference Range Interpretation Comments Blood Urea Nitrogen (test code = 3094-0) 25 7-26 [facility] LancasterCreatinine2018 08:38:00* Test Item Value Reference Range Interpretation Comments Creatinine (test code = 2160-0) 1.00 0.57-1.11 [facility] LancasterBUN/Creatinine [id number] 08:38:00* Test Item Value Reference Range Interpretation Comments BUN/Creatinine Ratio (test code = 3097-3) 25 6-25 [facility] LancasterEstimat Glomerular Filtration Rate 2017-09-29 08:38:00* Test Item Value Reference Range Interpretation Comments Estimat Glomerular Filtration Rate (test code = 79298-0) 56 >60 L Ranges were taken from the National Kidney Disease Education Program and the [facility] literature.Reference ranges:60 or greater: Piaxsc00-77 ( for 3 consecutive months): Chronic kidney disease 15 or less: Kidney failureCrescent Medical Center LancasterGlucose Cnwwi6243-80-86 08:38:00* Test Item Value Reference Range Interpretation Comments Glucose Level (test code = FCY2500) 290 74-118 H [facility] LancasterCalcium [id number] 08:38:00* Test Item Value Reference Range Interpretation Comments Calcium Level (test code = 20393-9) 9.4 8.4-10.2 [facility] LancasterArterial Blood [id number] 13:49:00* Test Item Value Reference Range Interpretation Comments Arterial Blood pH (test code = 2744-1) 7.46 7.31-7.41 H WAS CALLED TO RUN A BLOOD GAS FOR A PT ON ROOM AIR LAYING ON THE TIE MILL OPERATOR TABLE [facility] LancasterArterial Blood Partial Pressure CO2 2017-09-28 13:49:00* Test Item Value Reference Range Interpretation Comments Arterial Blood Partial Pressure CO2 (test code = 2018-8) 46 41-51 [facility] LancasterArterial Blood Partial Pressure O2 2017-09-28 13:49:00* Test Item Value Reference Range Interpretation Comments Arterial Blood Partial Pressure O2 (test code = 2019-8) 30 80-105 LL Results called/hand delivered to DR CLINTON LLAMAS at 1328 on 09/28/17 by Mckayla reyna. RB [place].[facility] LancasterArterial Blood HCO3 2017-09-28 13:49:00* Test Item Value Reference Range Interpretation Comments Arterial Blood HCO3 (test code = 1960-4) 33 23-28 H [facility] LancasterArterial Blood Base [id number] 13:49:00* Test Item Value Reference Range Interpretation Comments Arterial Blood Base Excess (test code = 1925-7) 9.0 -2-3 H [facility] LancasterArterial Blood Oxygen Saturation 2017-09-28 13:49:00* Test Item Value Reference Range Interpretation Comments Arterial Blood Oxygen Saturation (test code = 2708-6) 60.0 95-98 L [facility] Blood [id number] 13:49:00* Test Item Value Reference Range Interpretation Comments Arterial Blood pH (test code = 2744-1) 7.46 7.31-7.41 H WAS CALLED TO RUN A BLOOD GAS FOR A PT ON ROOM AIR LAYING ON THE TIE MILL OPERATOR TABLE [facility] LancasterArterial Blood Partial Pressure CO2 2017-09-28 13:49:00* Test Item Value Reference Range Interpretation Comments Arterial Blood Partial Pressure CO2 (test code = 2019-02) 46 41-51 [facility] LancasterArterial Blood Partial Pressure O2 2017-09-28 13:49:00* Test Item Value Reference Range Interpretation Comments Arterial Blood Partial Pressure O2 (test code = 2018-) 30 80-105 LL Results called/hand delivered to DR CLINTON LLAMAS at 1328 on 09/28/17 by Mckayla reyna. RB [place].[facility] LancasterArterial Blood HCO3 2017-09-28 13:49:00* Test Item Value Reference Range Interpretation Comments Arterial Blood HCO3 (test code = 1960-4) 33 23-28 H [facility] LancasterArterial Blood Base [id number] 13:49:00* Test Item Value Reference Range Interpretation Comments Arterial Blood Base Excess (test code = 1925-7) 9.0 -2-3 H [facility] LancasterArterial Blood Oxygen Saturation 2017-09-28 13:49:00* Test Item Value Reference Range Interpretation Comments Arterial Blood Oxygen Saturation (test code = 2708-6) 60.0 95-98 L [facility] Blood [id number] 13:49:00* Test Item Value Reference Range Interpretation Comments Arterial Blood pH (test code = 2744-1) 7.46 7.31-7.41 H WAS CALLED TO RUN A BLOOD GAS FOR A PT ON ROOM AIR LAYING ON THE TIE MILL OPERATOR TABLE [facility] LancasterArterial Blood Partial Pressure CO2 2017-09-28 13:49:00* Test Item Value Reference Range Interpretation Comments Arterial Blood Partial Pressure CO2 (test code = 8) 46 41-51 [facility] LancasterArterial Blood Partial Pressure O2 2017-09-28 13:49:00* Test Item Value Reference Range Interpretation Comments Arterial Blood Partial Pressure O2 (test code = 2019-02) 30 80-105 LL Results called/hand delivered to DR CLINTON LLAMAS at 1328 on 09/28/17 by Mckayla reyna. RB [place].[facility] LancasterArterial Blood HCO3 2017-09-28 13:49:00* Test Item Value Reference Range Interpretation Comments Arterial Blood HCO3 (test code = 1960-4) 33 23-28 H [facility] LancasterArterial Blood Base [id number] 13:49:00* Test Item Value Reference Range Interpretation Comments Arterial Blood Base Excess (test code = 1925-7) 9.0 -2-3 H [facility] LancasterArterial Blood Oxygen Saturation 2017-09-28 13:49:00* Test Item Value Reference Range Interpretation Comments Arterial Blood Oxygen Saturation (test code = 2708-6) 60.0 95-98 L [facility] Blood [id number] 13:49:00* Test Item Value Reference Range Interpretation Comments Arterial Blood pH (test code = 2744-1) 7.46 7.31-7.41 H WAS CALLED TO RUN A BLOOD GAS FOR A PT ON ROOM AIR LAYING ON THE TIE MILL OPERATOR TABLE [facility] LancasterArterial Blood Partial Pressure CO2 2017-09-28 13:49:00* Test Item Value Reference Range Interpretation Comments Arterial Blood Partial Pressure CO2 (test code = 2019-02) 46 41-51 [facility] LancasterArterial Blood Partial Pressure O2 2017-09-28 13:49:00* Test Item Value Reference Range Interpretation Comments Arterial Blood Partial Pressure O2 (test code = 8) 30 80-105 LL Results called/hand delivered to DR CLINTON LLAMAS at 1328 on 09/28/17 by Mckayla reyna. RB OK.[facility] LancasterArterial Blood HCO3 2017-09-28 13:49:00* Test Item Value Reference Range Interpretation Comments Arterial Blood HCO3 (test code = 1960-4) 33 23-28 H [facility] LancasterArter[facility] Blood Base [id number] 13:49:00* Test Item Value Reference Range Interpretation Comments Arterial Blood Base Excess (test code = 1925-7) 9.0 -2-3 H [facility] LancasterArterial Blood Oxygen Saturation 2017-09-28 13:49:00* Test Item Value Reference Range Interpretation Comments Arterial Blood Oxygen Saturation (test code = 2708-6) 60.0 95-98 L [facility] Blood [id number] 13:49:00* Test Item Value Reference Range Interpretation Comments Arterial Blood pH (test code = 2744-1) 7.46 7.31-7.41 H WAS CALLED TO RUN A BLOOD GAS FOR A PT ON ROOM AIR LAYING ON THE TIE MILL OPERATOR TABLE [facility] LancasterArterial Blood Partial Pressure CO2 2017-09-28 13:49:00* Test Item Value Reference Range Interpretation Comments Arterial Blood Partial Pressure CO2 (test code = 2018-8) 46 41-51 [facility] LancasterArterial Blood Partial Pressure O2 2017-09-28 13:49:00* Test Item Value Reference Range Interpretation Comments Arterial Blood Partial Pressure O2 (test code = 2018-8) 30 80-105 LL Results called/hand delivered to DR CLINTON LLAMAS at 1328 on 09/28/17 by Mckayla reyna. RB OK.[facility] LancasterAr[facility]ial Blood HCO3 2017-09-28 13:49:00* Test Item Value Reference Range Interpretation Comments Arterial Blood HCO3 (test code = 1960-4) 33 23-28 H [facility] LancasterArterial Blood Base [id number] 13:49:00* Test Item Value Reference Range Interpretation Comments Arterial Blood Base Excess (test code = 1925-7) 9.0 -2-3 H [facility] LancasterArterial Blood Oxygen Saturation 2017-09-28 13:49:00* Test Item Value Reference Range Interpretation Comments Arterial Blood Oxygen Saturation (test code = 2708-6) 60.0 95-98 L [facility] LancasterAr[facility] Blood [id number] 13:49:00* Test Item Value Reference Range Interpretation Comments Arterial Blood pH (test code = 2744-1) 7.46 7.31-7.41 H WAS CALLED TO RUN A BLOOD GAS FOR A PT ON ROOM AIR LAYING ON THE TIE MILL OPERATOR TABLE [facility] LancasterArterial Blood Partial Pressure CO2 2017-09-28 13:49:00* Test Item Value Reference Range Interpretation Comments Arterial Blood Partial Pressure CO2 (test code = 2019-02) 46 41-51 [facility] LancasterArterial Blood Partial Pressure O2 2017-09-28 13:49:00* Test Item Value Reference Range Interpretation Comments Arterial Blood Partial Pressure O2 (test code = 2019-02) 30 80-105 LL Results called/hand delivered to DR CLINTON LLAMAS at 1328 on 09/28/17 by Mckayla reyna. RB OK.[facility] LancasterAr[facility]ial Blood HCO3 2017-09-28 13:49:00* Test Item Value Reference Range Interpretation Comments Arterial Blood HCO3 (test code = 1960-4) 33 23-28 H [facility] LancasterArterial Blood Base [id number] 13:49:00* Test Item Value Reference Range Interpretation Comments Arterial Blood Base Excess (test code = 1925-7) 9.0 -2-3 H [facility] LancasterArterial Blood Oxygen Saturation 2017-09-28 13:49:00* Test Item Value Reference Range Interpretation Comments Arterial Blood Oxygen Saturation (test code = 2708-6) 60.0 95-98 L [facility] Blood [id number] 13:49:00* Test Item Value Reference Range Interpretation Comments Arterial Blood pH (test code = 2744-1) 7.46 7.31-7.41 H WAS CALLED TO RUN A BLOOD GAS FOR A PT ON ROOM AIR LAYING ON THE TIE MILL OPERATOR TABLE [facility] LancasterAr[facility]ial Blood Partial Pressure CO2 2017-09-28 13:49:00* Test Item Value Reference Range Interpretation Comments Arterial Blood Partial Pressure CO2 (test code = 2019-02) 46 41-51 [facility] LancasterArterial Blood Partial Pressure O2 2017-09-28 13:49:00* Test Item Value Reference Range Interpretation Comments Arterial Blood Partial Pressure O2 (test code = 2018-8) 30 80-105 LL Results called/hand delivered to DR CLINTON LLAMAS at 1328 on 09/28/17 by Mckayla reyna. RB OK.[facility] LancasterAr[facility]ial Blood HCO3 2017-09-28 13:49:00* Test Item Value Reference Range Interpretation Comments Arterial Blood HCO3 (test code = 1960-4) 33 23-28 H [facility] LancasterAr[facility]ial Blood Base [id number] 13:49:00* Test Item Value Reference Range Interpretation Comments Arterial Blood Base Excess (test code = 1925-7) 9.0 -2-3 H [facility] LancasterAr[facility] Blood Oxygen Saturation 2017-09-28 13:49:00* Test Item Value Reference Range Interpretation Comments Arterial Blood Oxygen Saturation (test code = 2708-6) 60.0 95-98 L [facility] Blood [id number] 13:49:00* Test Item Value Reference Range Interpretation Comments Arterial Blood pH (test code = 2744-1) 7.46 7.31-7.41 H WAS CALLED TO RUN A BLOOD GAS FOR A PT ON ROOM AIR LAYING ON THE TIE MILL OPERATOR TABLE [facility] LancasterAr[facility]ial Blood Partial Pressure CO2 2017-09-28 13:49:00* Test Item Value Reference Range Interpretation Comments Arterial Blood Partial Pressure CO2 (test code = 2018-8) 46 41-51 [facility] LancasterAr[facility] Blood Partial Pressure O2 2017-09-28 13:49:00* Test Item Value Reference Range Interpretation Comments Arterial Blood Partial Pressure O2 (test code = 2019-8) 30 80-105 LL Results called/hand delivered to DR CLINTON LLAMAS at 1328 on 09/28/17 by Mckayla reyna. RB DENNIS.[facility] LancasterAr[facility]ial Blood HCO3 2017-09-28 13:49:00* Test Item Value Reference Range Interpretation Comments Arterial Blood HCO3 (test code = 1960-4) 33 23-28 H [facility] LancasterAr[facility]ial Blood Base [id number] 13:49:00* Test Item Value Reference Range Interpretation Comments Arterial Blood Base Excess (test code = 1925-7) 9.0 -2-3 H [facility] LancasterAr[facility] Blood Oxygen Saturation 2017-09-28 13:49:00* Test Item Value Reference Range Interpretation Comments Arterial Blood Oxygen Saturation (test code = 2708-6) 60.0 95-98 L [facility] Blood [id number] 13:49:00* Test Item Value Reference Range Interpretation Comments Arterial Blood pH (test code = 2744-1) 7.46 7.31-7.41 H WAS CALLED TO RUN A BLOOD GAS FOR A PT ON ROOM AIR LAYING ON THE TIE MILL OPERATOR TABLE [facility] LancasterAr[facility]ial Blood Partial Pressure CO2 2017-09-28 13:49:00* Test Item Value Reference Range Interpretation Comments Arterial Blood Partial Pressure CO2 (test code = 2018-8) 46 41-51 [facility] LancasterAr[facility]ial Blood Partial Pressure O2 2017-09-28 13:49:00* Test Item Value Reference Range Interpretation Comments Arterial Blood Partial Pressure O2 (test code = 2018-) 30 80-105 LL Results called/hand delivered to DR CLINTON LLAMAS at 1328 on 09/28/17 by Mckayla reyna. RB OK.[facility] LancasterAr[facility]ial Blood HCO3 2017-09-28 13:49:00* Test Item Value Reference Range Interpretation Comments Arterial Blood HCO3 (test code = 1960-4) 33 23-28 H [facility] LancasterAr[facility]ial Blood Base [id number] 13:49:00* Test Item Value Reference Range Interpretation Comments Arterial Blood Base Excess (test code = 1925-7) 9.0 -2-3 H [facility] LancasterAr[facility] Blood Oxygen Saturation 2017-09-28 13:49:00* Test Item Value Reference Range Interpretation Comments Arterial Blood Oxygen Saturation (test code = 2708-6) 60.0 95-98 L [facility] Blood [id number] 13:49:00* Test Item Value Reference Range Interpretation Comments Arterial Blood pH (test code = 2744-1) 7.46 7.31-7.41 H WAS CALLED TO RUN A BLOOD GAS FOR A PT ON ROOM AIR LAYING ON THE TIE MILL OPERATOR TABLE [facility] LancasterArterial Blood Partial Pressure CO2 2017-09-28 13:49:00* Test Item Value Reference Range Interpretation Comments Arterial Blood Partial Pressure CO2 (test code = 2018-8) 46 41-51 [facility] LancasterAr[facility]ial Blood Partial Pressure O2 2017-09-28 13:49:00* Test Item Value Reference Range Interpretation Comments Arterial Blood Partial Pressure O2 (test code = 2019-02) 30 80-105 LL Results called/hand delivered to DR CLINTON LLAMAS at 1328 on 09/28/17 by Mckayla reyna. RB OK.[facility] LancasterArterial Blood HCO3 2017-09-28 13:49:00* Test Item Value Reference Range Interpretation Comments Arterial Blood HCO3 (test code = 1960-4) 33 23-28 H [facility] LancasterArterial Blood Base [id number] 13:49:00* Test Item Value Reference Range Interpretation Comments Arterial Blood Base Excess (test code = 1925-7) 9.0 -2-3 H [facility] LancasterAr[facility]ial Blood Oxygen Saturation 2017-09-28 13:49:00* Test Item Value Reference Range Interpretation Comments Arterial Blood Oxygen Saturation (test code = 2708-6) 60.0 95-98 L [facility] LancasterAr[facility] Blood [id number] 13:49:00* Test Item Value Reference Range Interpretation Comments Arterial Blood pH (test code = 2744-1) 7.46 7.31-7.41 H WAS CALLED TO RUN A BLOOD GAS FOR A PT ON ROOM AIR LAYING ON THE TIE MILL OPERATOR TABLE [facility] LancasterArterial Blood Partial Pressure CO2 2017-09-28 13:49:00* Test Item Value Reference Range Interpretation Comments Arterial Blood Partial Pressure CO2 (test code = 8) 46 41-51 [facility] LancasterAr[facility]ial Blood Partial Pressure O2 2017-09-28 13:49:00* Test Item Value Reference Range Interpretation Comments Arterial Blood Partial Pressure O2 (test code = 8) 30 80-105 LL Results called/hand delivered to DR CLINTON LLAMAS at 1328 on 09/28/17 by Mckayla reyna. RB OK.[facility] LancasterAr[facility]ial Blood HCO3 2017-09-28 13:49:00* Test Item Value Reference Range Interpretation Comments Arterial Blood HCO3 (test code = 1960-4) 33 23-28 H [facility] LancasterArterial Blood Base [id number] 13:49:00* Test Item Value Reference Range Interpretation Comments Arterial Blood Base Excess (test code = 1925-7) 9.0 -2-3 H [facility] LancasterAr[facility]ial Blood Oxygen Saturation 2017-09-28 13:49:00* Test Item Value Reference Range Interpretation Comments Arterial Blood Oxygen Saturation (test code = 2708-6) 60.0 95-98 L [facility] LancasterBlood [id number] 11:00:00* Test Item Value Reference Range Interpretation Comments Blood Culture (test code = 14776915) NO GROWTH AFTER 72 HOURS [facility] LancasterCreatine Kinase [id number] 07:21:00* Test Item Value Reference Range Interpretation Comments Creatine Kinase MB (test code = 50399-4) 1.40 0-5.0 [facility] LancasterTroponin [id number] 07:21:00* Test Item Value Reference Range Interpretation Comments Troponin I (test code = EOU9746) -0.001 0-0.300 [facility] LancasterCreatine Kinase [id number] 07:21:00* Test Item Value Reference Range Interpretation Comments Creatine Kinase MB (test code = 69186-6) 1.40 0-5.0 [facility] LancasterTroponin [id number] 07:21:00* Test Item Value Reference Range Interpretation Comments Troponin I (test code = VBA2004) -0.001 0-0.300 [facility] LancasterCreatine [id number] 07:19:00* Test Item Value Reference Range Interpretation Comments Creatine Kinase (test code = 2157-6) 67 29-168 [facility] LancasterCreatine [id number] 07:19:00* Test Item Value Reference Range Interpretation Comments Creatine Kinase (test code = 2157-6) 67 29-168 [facility] LancasterWhite Blood [id number] 07:00:00* Test Item Value Reference Range Interpretation Comments White Blood Count (test code = 6690-2) 8.36 4.8-10.8 [facility] LancasterRed Blood [id number] 07:00:00* Test Item Value Reference Range Interpretation Comments Red Blood Count (test code = 789-8) 4.13 3.6-5.1 [facility] LancasterHemoglobin2018-03-06 07:00:00* Test Item Value Reference Range Interpretation Comments Hemoglobin (test code = 11178-7) 10.9 12.0-16.0 L [facility] LancasterHematocrit2018-03-06 07:00:00* Test Item Value Reference Range Interpretation Comments Hematocrit (test code = 4544-3) 35.0 34.2-44.1 [facility] LancasterMean Corpuscular [id number] 07:00:00* Test Item Value Reference Range Interpretation Comments Mean Corpuscular Volume (test code = 787-2) 84.7 81-99 [facility] LancasterMean Corpuscular Tqdfykkhsj7194-09-96 07:00:00* Test Item Value Reference Range Interpretation Comments Mean Corpuscular Hemoglobin (test code = 785-6) 26.4 28-32 L [facility] LancasterMean Corpuscular Hemoglobin Concent 2017-09-26 07:00:00* Test Item Value Reference Range Interpretation Comments Mean Corpuscular Hemoglobin Concent (test code = 786-4) 31.1 31-35 [facility] LancasterRed Cell Distribution [id number] 07:00:00* Test Item Value Reference Range Interpretation Comments Red Cell Distribution Width (test code = 99343-6) 15.1 11.7 -14.4 H [facility] LancasterPlatelet [id number] 07:00:00* Test Item Value Reference Range Interpretation Comments Platelet Count (test code = 777-3) 223 140-360 [facility] LancasterNeutrophils (%) (Auto)2017-09-26 07:00:00 * Test Item Value Reference Range Interpretation Comments Neutrophils (%) (Auto) (test code = 55006-8) 80.9 38.7-80.0 H [facility] LancasterLymphocytes (%) (Auto)2017-09-26 07:00:00 * Test Item Value Reference Range Interpretation Comments Lymphocytes (%) (Auto) (test code = 736-9) 12.3 18.0-39.1 L [facility] LancasterMonocytes (%) (Auto)2017-09-26 07:00:00* Test Item Value Reference Range Interpretation Comments Monocytes (%) (Auto) (test code = 5905-5) 5.1 4.4-11.3 [facility] LancasterEosinophils (%) (Auto)2017-09-26 07:00:00 * Test Item Value Reference Range Interpretation Comments Eosinophils (%) (Auto) (test code = 713-8) 0.0 0.0-6.0 [facility] LancasterBasophils (%) (Auto)2017-09-26 07:00:00* Test Item Value Reference Range Interpretation Comments Basophils (%) (Auto) (test code = 706-2) 0.4 0.0-1.0 [facility] LancasterIM GRANULOCYTES %2017-09-26 07:00:00* Test Item Value Reference Range Interpretation Comments IM GRANULOCYTES % (test code = IM GRANULOCYTES %) 1.3 0.0- 1.0 H [facility] LancasterNeutrophils # (Auto)2017-09-26 07:00:00* Test Item Value Reference Range Interpretation Comments Neutrophils # (Auto) (test code = 751-8) 6.8 2.1-6.9 [facility] LancasterLymphocytes # (Auto)2017-09-26 07:00:00* Test Item Value Reference Range Interpretation Comments Lymphocytes # (Auto) (test code = 99114-4) 1.0 1.0-3.2 [facility] LancasterMonocytes # (Auto)2017-09-26 07:00:00* Test Item Value Reference Range Interpretation Comments Monocytes # (Auto) (test code = 742-7) 0.4 0.2-0.8 [facility] LancasterEosinophils # (Auto)2017-09-26 07:00:00* Test Item Value Reference Range Interpretation Comments Eosinophils # (Auto) (test code = 711-2) 0.0 0.0-0.4 [facility] LancasterBasophils # (Auto)2017-09-26 07:00:00* Test Item Value Reference Range Interpretation Comments Basophils # (Auto) (test code = 704-7) 0.0 0.0-0.1 [facility] LancasterAbsolute Immature Granulocyte (auto 2017-09-26 07:00:00* Test Item Value Reference Range Interpretation Comments Absolute Immature Granulocyte (auto (joseph t code = Absolute Immature Granulocyte (auto) 0.11 0-0.1 H [facility] LancasterWhite Blood [id number] 07:00:00* Test Item Value Reference Range Interpretation Comments White Blood Count (test code = 6690-2) 8.36 4.8-10.8 [facility] LancasterRed Blood [id number] 07:00:00* Test Item Value Reference Range Interpretation Comments Red Blood Count (test code = 789-8) 4.13 3.6-5.1 [facility] LancasterHemoglobin2018-03-06 07:00:00* Test Item Value Reference Range Interpretation Comments Hemoglobin (test code = 86503-7) 10.9 12.0-16.0 L [facility] LancasterHematocrit2018-03-06 07:00:00* Test Item Value Reference Range Interpretation Comments Hematocrit (test code = 4544-3) 35.0 34.2-44.1 [facility] LancasterMean Corpuscular [id number] 07:00:00* Test Item Value Reference Range Interpretation Comments Mean Corpuscular Volume (test code = 787-2) 84.7 81-99 [facility] LancasterMean Corpuscular Eyhijyvvkq9055-47-29 07:00:00* Test Item Value Reference Range Interpretation Comments Mean Corpuscular Hemoglobin (test code = 785-6) 26.4 28-32 L [facility] LancasterMean Corpuscular Hemoglobin Concent 2017-09-26 07:00:00* Test Item Value Reference Range Interpretation Comments Mean Corpuscular Hemoglobin Concent (test code = 786-4) 31.1 31-35 [facility] LancasterRed Cell Distribution [id number] 07:00:00* Test Item Value Reference Range Interpretation Comments Red Cell Distribution Width (test code = 29944-6) 15.1 11.7 -14.4 H [facility] LancasterPlatelet Kutsc7619-72-75 07:00:00* Test Item Value Reference Range Interpretation Comments Platelet Count (test code = 777-3) 223 140-360 [facility] LancasterNeutrophils (%) (Auto)2017-09-26 07:00:00 * Test Item Value Reference Range Interpretation Comments Neutrophils (%) (Auto) (test code = 79998-9) 80.9 38.7-80.0 [facility] LancasterLymphocytes (%) (Auto)2017-09-26 07:00:00 * Test Item Value Reference Range Interpretation Comments Lymphocytes (%) (Auto) (test code = 736-9) 12.3 18.0-39.1 L [facility] LancasterMonocytes (%) (Auto)2017-09-26 07:00:00* Test Item Value Reference Range Interpretation Comments Monocytes (%) (Auto) (test code = 5905-5) 5.1 4.4-11.3 [facility] LancasterEosinophils (%) (Auto)2017-09-26 07:00:00 * Test Item Value Reference Range Interpretation Comments Eosinophils (%) (Auto) (test code = 713-8) 0.0 0.0-6.0 [facility] LancasterBasophils (%) (Auto)2017-09-26 07:00:00* Test Item Value Reference Range Interpretation Comments Basophils (%) (Auto) (test code = 706-2) 0.4 0.0-1.0 [facility] LancasterIM GRANULOC[facility]TES %2017-09-26 07:00:00* Test Item Value Reference Range Interpretation Comments IM GRANULOCYTES % (test code = IM GRANULOCYTES %) 1.3 0.0- 1.0 [facility] LancasterNeutrophils # (Auto)2017-09-26 07:00:00* Test Item Value Reference Range Interpretation Comments Neutrophils # (Auto) (test code = 751-8) 6.8 2.1-6.9 [facility] LancasterLymphocytes # (Auto)2017-09-26 07:00:00* Test Item Value Reference Range Interpretation Comments Lymphocytes # (Auto) (test code = 98444-8) 1.0 1.0-3.2 [facility] LancasterMonocytes # (Auto)2017-09-26 07:00:00* Test Item Value Reference Range Interpretation Comments Monocytes # (Auto) (test code = 742-7) 0.4 0.2-0.8 [facility] LancasterEosinophils # (Auto)2017-09-26 07:00:00* Test Item Value Reference Range Interpretation Comments Eosinophils # (Auto) (test code = 711-2) 0.0 0.0-0.4 [facility] LancasterBasophils # (Auto)2017-09-26 07:00:00* Test Item Value Reference Range Interpretation Comments Basophils # (Auto) (test code = 704-7) 0.0 0.0-0.1 [facility] LancasterAbsolute Immature Granulocyte (auto 2017-09-26 07:00:00* Test Item Value Reference Range Interpretation Comments Absolute Immature Granulocyte (auto (joseph t code = Absolute Immature Granulocyte (auto) 0.11 0-0.1 H [facility] LancasterProthrombin Rjjn9669-79-73 11:58:00* Test Item Value Reference Range Interpretation Comments Prothrombin Time (test code = 5902-2) 13.2 11.9-14.5 [facility] LancasterProthromb Time International Ratio 2017-09-25 11:58:00* Test Item Value Reference Range Interpretation Comments Prothromb Time International Ratio (test code = 6301-6) 1.08 Oral Anticoagulant Therapy INR Values:1. Low Intensity Therapy 1.5 - 2.02 . Moderate Intensity Therapy 2.0 - 3.03. High Intensity Therapy(1) 2.5 - 3. 54. High Intensity Therapy(2) 3.0 - 4.05. Panic Value INR > 5.0 [facility] LancasterActivated Partial Thromboplast Time 2017-09-25 11:58:00* Test Item Value Reference Range Interpretation Comments Activated Partial Thromboplast Time (test code = 45301-7) 23.7 23.8-35.5 L [facility] LancasterB-Type Natriuretic Qzpvfkw1868-78-82 11:58:00* Test Item Value Reference Range Interpretation Comments B-Type Natriuretic Peptide (test code = 70685-4) 77.1 0-100 [facility] LancasterProthrombin Cruu4737-96-33 11:58:00* Test Item Value Reference Range Interpretation Comments Prothrombin Time (test code = 5902-2) 13.2 11.9-14.5 [facility] LancasterProthromb Time International Ratio 2017-09-25 11:58:00* Test Item Value Reference Range Interpretation Comments Prothromb Time International Ratio (test code = 6301-6) 1.08 Oral Anticoagulant Therapy INR Values:1. Low Intensity Therapy 1.5 - 2.02 . Moderate Intensity Therapy 2.0 - 3.03. High Intensity Therapy(1) 2.5 - 3. 54. High Intensity Therapy(2) 3.0 - 4.05. Panic Value INR > 5.0 [facility] LancasterActivated Partial Thromboplast Time 2017-09-25 11:58:00* Test Item Value Reference Range Interpretation Comments Activated Partial Thromboplast Time (test code = 78249-5) 23.7 23.8-35.5 L [facility] LancasterB-Type Natriuretic Fzxvwqa9793-52-88 11:58:00* Test Item Value Reference Range Interpretation Comments B-Type Natriuretic Peptide (test code = 39627-8) 77.1 0-100 [facility] LancasterInfluenza Virus Types A,B Antigen 2017-09-25 11:57:00* Test Item Value Reference Range Interpretation Comments Influenza Virus Types A,B Antigen (test code = 75406-8) NEGATIVE NEGATIVE [facility] LancasterInfluenza Virus Types A,B Antigen 2017-09-25 11:57:00* Test Item Value Reference Range Interpretation Comments Influenza Virus Types A,B Antigen (test code = 06891-5) NEGATIVE NEGATIVE [facility] LancasterInfluenza Virus Types A,B Antigen 2017-09-25 11:57:00* Test Item Value Reference Range Interpretation Comments Influenza Virus Types A,B Antigen (test code = 50054-3) NEGATIVE NEGATIVE [facility] LancasterInfluenza Virus Types A,B Antigen 2017-09-25 11:57:00* Test Item Value Reference Range Interpretation Comments Influenza Virus Types A,B Antigen (test code = 65496-9) NEGATIVE NEGATIVE [facility] LancasterInfluenza Virus Types A,B Antigen 2017-09-25 11:57:00* Test Item Value Reference Range Interpretation Comments Influenza Virus Types A,B Antigen (test code = 04708-8) NEGATIVE NEGATIVE [facility] LancasterInfluenza Virus Types A,B Antigen 2017-09-25 11:57:00* Test Item Value Reference Range Interpretation Comments Influenza Virus Types A,B Antigen (test code = 98226-2) NEGATIVE NEGATIVE [facility] LancasterInfluenza Virus Types A,B Antigen 2017-09-25 11:57:00* Test Item Value Reference Range Interpretation Comments Influenza Virus Types A,B Antigen (test code = 73018-1) NEGATIVE NEGATIVE [facility] LancasterInfluenza Virus Types A,B Antigen 2017-09-25 11:57:00* Test Item Value Reference Range Interpretation Comments Influenza Virus Types A,B Antigen (test code = 72838-7) NEGATIVE NEGATIVE [facility] LancasterInfluenza Virus Types A,B Antigen 2017-09-25 11:57:00* Test Item Value Reference Range Interpretation Comments Influenza Virus Types A,B Antigen (test code = 48792-5) NEGATIVE NEGATIVE [facility] LancasterInfluenza Virus Types A,B Antigen 2017-09-25 11:57:00* Test Item Value Reference Range Interpretation Comments Influenza Virus Types A,B Antigen (test code = 82257-4) NEGATIVE NEGATIVE [facility] LancasterInfluenza Virus Types A,B Antigen 2017-09-25 11:57:00* Test Item Value Reference Range Interpretation Comments Influenza Virus Types A,B Antigen (test code = 41441-7) NEGATIVE NEGATIVE [facility] LancasterUrine [id number] 11:55:00* Test Item Value Reference Range Interpretation Comments Urine WBC (test code = 5821-4) NONE 0-5 [facility] LancasterUrine SQJ3475-27-11 11:55:00* Test Item Value Reference Range Interpretation Comments Urine RBC (test code = 76418-6) NONE 0-5 [facility] LancasterUrine Euuuxbum5938-60-07 11:55:00* Test Item Value Reference Range Interpretation Comments Urine Bacteria (test code = 90697-0) NONE NONE [facility] LancasterUrine Epithelial Qxjcz1881-39-77 11:55:00 * Test Item Value Reference Range Interpretation Comments Urine Epithelial Cells (test code = 79173-0) RARE NONE [facility] LancasterUrine MRF2833-60-80 11:55:00* Test Item Value Reference Range Interpretation Comments Urine WBC (test code = 5821-4) NONE 0-5 [facility] LancasterUrine PEB1436-16-25 11:55:00* Test Item Value Reference Range Interpretation Comments Urine RBC (test code = 20311-9) NONE 0-5 [facility] LancasterUrine Kglhxcqe7325-00-68 11:55:00* Test Item Value Reference Range Interpretation Comments Urine Bacteria (test code = 81495-3) NONE NONE [facility] LancasterUrine Epithelial Erlfj1822-15-24 11:55:00 * Test Item Value Reference Range Interpretation Comments Urine Epithelial Cells (test code = 00898-7) RARE NONE [facility] LancasterThyroid Stimulating Hormone (TSH) 2017-09-25 11:50:00* Test Item Value Reference Range Interpretation Comments Thyroid Stimulating Hormone (TSH) (test code = 44724-1) 0.515 0.350-4.940 [facility] LancasterThyroid Stimulating Hormone (TSH) 2017-09-25 11:50:00* Test Item Value Reference Range Interpretation Comments Thyroid Stimulating Hormone (TSH) (test code = 81421-0) 0.515 0.350-4.940 [facility] LancasterThyroid Stimulating Hormone (TSH) 2017-09-25 11:50:00* Test Item Value Reference Range Interpretation Comments Thyroid Stimulating Hormone (TSH) (test code = 33941-3) 0.515 0.350-4.940 [facility] LancasterThyroid Stimulating Hormone (TSH) 2017-09-25 11:50:00* Test Item Value Reference Range Interpretation Comments Thyroid Stimulating Hormone (TSH) (test code = 47074-5) 0.515 0.350-4.940 [facility] LancasterThyroid Stimulating Hormone (TSH) 2017-09-25 11:50:00* Test Item Value Reference Range Interpretation Comments Thyroid Stimulating Hormone (TSH) (test code = 88764-7) 0.515 0.350-4.940 [facility] LancasterUrine Aapyj9062-11-54 11:45:00* Test Item Value Reference Range Interpretation Comments Urine Color (test code = 5778-6) COLORLESS YELLOW [facility] LancasterUrine Ikrvwvj4852-07-31 11:45:00* Test Item Value Reference Range Interpretation Comments Urine Clarity (test code = 50668-2) CLEAR CLEAR [facility] LancasterUrine Specific Unpqaeo3433-72-62 11:45:00 * Test Item Value Reference Range Interpretation Comments Urine Specific [place] (test code = 5811-5) 1.010 1.010-1.02 5 [facility] LancasterUrine [id number] 11:45:00* Test Item Value Reference Range Interpretation Comments Urine pH (test code = 63500-6) 6 5-7 [facility] LancasterUrine Leukocyte Zqwzaote8221-54-34 11:45:00* Test Item Value Reference Range Interpretation Comments Urine Leukocyte Esterase (test code = 5799-2) NEGATIVE NEGATIVE [facility] LancasterUrine Wpbfiqw8996-33-78 11:45:00* Test Item Value Reference Range Interpretation Comments Urine Nitrite (test code = 16267-2) NEGATIVE NEGATIVE [facility] LancasterUrine Fjjgscn1924-49-10 11:45:00* Test Item Value Reference Range Interpretation Comments Urine Protein (test code = 5804-0) NEGATIVE NEGATIVE [facility] LancasterUrine Glucose (UA)2017-09-25 11:45:00* Test Item Value Reference Range Interpretation Comments Urine Glucose (UA) (test code = 2349-9) NEGATIVE NEGATIVE [facility] LancasterUrine Cujeyog8403-58-95 11:45:00* Test Item Value Reference Range Interpretation Comments Urine Ketones (test code = 72654-7) NEGATIVE NEGATIVE [facility] Szwghlptmiya2591-97-08 11:45:00* Test Item Value Reference Range Interpretation Comments Urine Urobilinogen (test code = 99225-0) 0.2 0.2-1 [facility] Rsbwlxgag0574-92-45 11:45:00* Test Item Value Reference Range Interpretation Comments Urine Bilirubin (test code = 1978-6) NEGATIVE NEGATIVE [facility] LancasterUrine Fjwla7746-21-51 11:45:00* Test Item Value Reference Range Interpretation Comments Urine Blood (test code = 72323-5) NEGATIVE NEGATIVE [facility] LancasterUrine Zxxak3891-15-54 11:45:00* Test Item Value Reference Range Interpretation Comments Urine Color (test code = 5778-6) COLORLESS YELLOW [facility] LancasterUrine Jhsrroj9925-28-92 11:45:00* Test Item Value Reference Range Interpretation Comments Urine Clarity (test code = 42266-4) CLEAR CLEAR [facility] LancasterUrine Specific Teyizne7161-53-29 11:45:00 * Test Item Value Reference Range Interpretation Comments Urine Specific [place] (test code = 5811-5) 1.010 1.010-1.02 5 [facility] LancasterUrine [id number] 11:45:00* Test Item Value Reference Range Interpretation Comments Urine pH (test code = 68813-7) 6 5-7 [facility] LancasterUrine Leukocyte Acvivgfx7141-83-56 11:45:00* Test Item Value Reference Range Interpretation Comments Urine Leukocyte Esterase (test code = 5799-2) NEGATIVE NEGATIVE [facility] LancasterUrine Cancsbo5134-68-95 11:45:00* Test Item Value Reference Range Interpretation Comments Urine Nitrite (test code = 15330-1) NEGATIVE NEGATIVE [facility] LancasterUrine Nmntcpt2306-08-59 11:45:00* Test Item Value Reference Range Interpretation Comments Urine Protein (test code = 5804-0) NEGATIVE NEGATIVE [facility] LancasterUrine Glucose (UA)2017-09-25 11:45:00* Test Item Value Reference Range Interpretation Comments Urine Glucose (UA) (test code = 2349-9) NEGATIVE NEGATIVE [facility] LancasterUrine Aybqkqd0739-06-53 11:45:00* Test Item Value Reference Range Interpretation Comments Urine Ketones (test code = 56784-0) NEGATIVE NEGATIVE [facility] Tdxayzmrmfna2688-49-96 11:45:00* Test Item Value Reference Range Interpretation Comments Urine Urobilinogen (test code = 08865-5) 0.2 0.2-1 [facility] LancasterUrine Lhkrxhxxv4980-51-20 11:45:00* Test Item Value Reference Range Interpretation Comments Urine Bilirubin (test code = 1978-6) NEGATIVE NEGATIVE [facility] LancasterUrine Jhfjh7130-13-27 11:45:00* Test Item Value Reference Range Interpretation Comments Urine Blood (test code = 04258-9) NEGATIVE NEGATIVE [facility] LancasterTotal Xxiimrjxw1078-62-03 11:25:00* Test Item Value Reference Range Interpretation Comments Total Bilirubin (test code = 1975-2) 0.3 0.2-1.2 [facility] LancasterAspartate Amino Transf (AST/SGOT) 2017-09-25 11:25:00* Test Item Value Reference Range Interpretation Comments Aspartate Amino Transf (AST/SGOT) (test code = Aspartate Amino Transf (AST/SGOT)) 23 5-34 [facility] LancasterAlanine Aminotransferase (ALT/SGPT) 2017-09-25 11:25:00* Test Item Value Reference Range Interpretation Comments Alanine Aminotransferase (ALT/SGPT) (test code = 1742-6) 27 0-55 [facility] LancasterTotal Cneuedx7097-53-85 11:25:00* Test Item Value Reference Range Interpretation Comments Total Protein (test code = 2885-2) 6.8 6.5-8.1 [facility] LancasterAlbumin2018-03-05 11:25:00* Test Item Value Reference Range Interpretation Comments Albumin (test code = 1751-7) 3.4 3.5-5.0 L [facility] LancasterGlobulin2018-03-05 11:25:00* Test Item Value Reference Range Interpretation Comments Globulin (test code = 34030-6) 3.4 2.3-3.5 [facility] LancasterAlbumin/Globulin Yafyq7671-05-74 11:25:00 * Test Item Value Reference Range Interpretation Comments Albumin/Globulin Ratio (test code = 1759-0) 1.0 0.8-2.0 [facility] LancasterAlkaline Gxwcusyytsf4008-74-75 11:25:00* Test Item Value Reference Range Interpretation Comments Alkaline Phosphatase (test code = 6768-6) 67 40-150 [facility] LancasterTotal Itwuvaurq3671-52-65 11:25:00* Test Item Value Reference Range Interpretation Comments Total Bilirubin (test code = 1975-2) 0.3 0.2-1.2 [facility] LancasterAspartate Amino Transf (AST/SGOT) 2017-09-25 11:25:00* Test Item Value Reference Range Interpretation Comments Aspartate Amino Transf (AST/SGOT) (test code = Aspartate Amino Transf (AST/SGOT)) 23 5-34 [facility] LancasterAlanine Aminotransferase (ALT/SGPT) 2017-09-25 11:25:00* Test Item Value Reference Range Interpretation Comments Alanine Aminotransferase (ALT/SGPT) (test code = 1742-6) 27 0-55 [facility] LancasterTotal Chskhpc6175-85-74 11:25:00* Test Item Value Reference Range Interpretation Comments Total Protein (test code = 2885-2) 6.8 6.5-8.1 [facility] LancasterAlbumin2018-03-05 11:25:00* Test Item Value Reference Range Interpretation Comments Albumin (test code = 1751-7) 3.4 3.5-5.0 L [facility] LancasterGlobulin2018-03-05 11:25:00* Test Item Value Reference Range Interpretation Comments Globulin (test code = 03074-1) 3.4 2.3-3.5 [facility] LancasterAlbumin/Globulin Wtyrn7121-91-15 11:25:00 * Test Item Value Reference Range Interpretation Comments Albumin/Globulin Ratio (test code = 1759-0) 1.0 0.8-2.0 [facility] LancasterAlkaline Ukxgwyduonw3819-55-54 11:25:00* Test Item Value Reference Range Interpretation Comments Alkaline Phosphatase (test code = 6768-6) 67 40-150 [facility] LancasterBedside Icsfdaz7040-51-87 13:07:00* Test Item Value Reference Range Interpretation Comments Bedside Glucose (test code = 34966-9) 373 70-120 H Meter ID: [id number] [facility]'s Round [facility] CenterBlood Culture 2017-08-26 07:45:00* Test Item Value Reference Range Interpretation Comments Blood Culture (test code = 04928157) NO GROWTH AFTER 48 HOURS [facility]odium Lnovc0697-14-56 07:23:00* Test Item Value Reference Range Interpretation Comments Sodium Level (test code = 2951-2) 139 136-145 [facility] LancasterPotassium Axpbq9022-05-14 07:23:00* Test Item Value Reference Range Interpretation Comments Potassium Level (test code = 2823-3) 4.7 3.5-5.1 [facility] LancasterChloride Pbulg1792-21-54 07:23:00* Test Item Value Reference Range Interpretation Comments Chloride Level (test code = 2075-0) 103 98-107 [facility] LancasterCarbon Dioxide Nchvn6750-82-63 07:23:00* Test Item Value Reference Range Interpretation Comments Carbon Dioxide Level (test code = 2028-9) 28 22-29 [facility] LancasterAnion Hbu0177-35-78 07:23:00* Test Item Value Reference Range Interpretation Comments Anion Gap (test code = 89996-0) 12.7 8-16 [facility] LancasterBlood Urea Gtonokgx2029-14-55 07:23:00* Test Item Value Reference Range Interpretation Comments Blood Urea Nitrogen (test code = 3094-0) 19 7-26 [facility] LancasterCreatinine2018-02-02 07:23:00* Test Item Value Reference Range Interpretation Comments Creatinine (test code = 2160-0) 1.05 0.57-1.11 [facility] LancasterBUN/Creatinine Soqiw7317-71-23 07:23:00* Test Item Value Reference Range Interpretation Comments BUN/Creatinine Ratio (test code = 3097-3) 18 6-25 [facility] LancasterEstimat Glomerular Filtration Rate 2017-08-25 07:23:00* Test Item Value Reference Range Interpretation Comments Estimat Glomerular Filtration Rate (test code = 13335-0) 53 >60 L Ranges were taken from the National Kidney Disease Education Program and the [facility] literature.Reference ranges:60 or greater: Wudnzo00-98 ( for 3 consecutive months): Chronic kidney disease 15 or less: Kidney failureCrescent Medical Center LancasterGlucose Gycfg0629-75-70 07:23:00* Test Item Value Reference Range Interpretation Comments Glucose Level (test code = GKY4241) 249 74-118 H [facility] LancasterCalcium Tngxm4788-93-26 07:23:00* Test Item Value Reference Range Interpretation Comments Calcium Level (test code = 21680-2) 8.8 8.4-10.2 [facility] LancasterTotal Uddmvpxps6577-81-25 07:23:00* Test Item Value Reference Range Interpretation Comments Total Bilirubin (test code = 1975-2) 0.5 0.2-1.2 [facility] LancasterAspartate Amino Transf (AST/SGOT) 2017-08-25 07:23:00* Test Item Value Reference Range Interpretation Comments Aspartate Amino Transf (AST/SGOT) (test code = Aspartate Amino Transf (AST/SGOT)) 15 5-34 [facility] LancasterAlanine Aminotransferase (ALT/SGPT) 2017-08-25 07:23:00* Test Item Value Reference Range Interpretation Comments Alanine Aminotransferase (ALT/SGPT) (test code = 1742-6) 16 0-55 [facility] LancasterTotal Yiakvxl6121-27-37 07:23:00* Test Item Value Reference Range Interpretation Comments Total Protein (test code = 2885-2) 6.7 6.5-8.1 [facility] LancasterAlbumin2018-02-02 07:23:00* Test Item Value Reference Range Interpretation Comments Albumin (test code = 1751-7) 3.3 3.5-5.0 L [facility] LancasterGlobulin2018-02-02 07:23:00* Test Item Value Reference Range Interpretation Comments Globulin (test code = 50757-4) 3.4 2.3-3.5 [facility] LancasterAlbumin/Globulin Kigon1308-67-42 07:23:00 * Test Item Value Reference Range Interpretation Comments Albumin/Globulin Ratio (test code = 1759-0) 1.0 0.8-2.0 [facility] LancasterAlkaline Uwnjeulmadc8776-55-54 07:23:00* Test Item Value Reference Range Interpretation Comments Alkaline Phosphatase (test code = 6768-6) 62 40-150 [facility] LancasterTriglycerides Ddswy5094-69-34 07:23:00* Test Item Value Reference Range Interpretation Comments Triglycerides Level (test code = 2571-8) 216 0-149 H [facility] LancasterCholesterol Umqrm3264-28-58 07:23:00* Test Item Value Reference Range Interpretation Comments Cholesterol Level (test code = 2093-3) 181 0-199 Less than 200 mg/dL Low Jhbi113 - 239 mg/dL Borderline Qbua061 m g/dl and greater High Risk [facility] LancasterLDL Lotwmdruhdb9351-67-74 07:23:00* Test Item Value Reference Range Interpretation Comments LDL Cholesterol (test code = 2089-1) 109 60-130 [facility] LancasterHDL Wqevztmjeua0993-31-33 07:23:00* Test Item Value Reference Range Interpretation Comments HDL Cholesterol (test code = 2085-9) 29 40-60 L [facility] LancasterCholesterol/HDL Dfvef9282-11-24 07:23:00 * Test Item Value Reference Range Interpretation Comments Cholesterol/HDL Ratio (test code = 9830-1) 6.2 3.0-3.6 H [facility] LancasterTriglycerides Khyas8314-11-99 07:23:00* Test Item Value Reference Range Interpretation Comments Triglycerides Level (test code = 2571-8) 216 0-149 H [facility] LancasterCholesterol Klweg1413-09-71 07:23:00* Test Item Value Reference Range Interpretation Comments Cholesterol Level (test code = 2093-3) 181 0-199 Less than 200 mg/dL Low Teen584 - 239 mg/dL Borderline Xpfs474 m g/dl and greater High Risk [facility] LancasterLDL Bbxewzybqor7038-36-81 07:23:00* Test Item Value Reference Range Interpretation Comments LDL Cholesterol (test code = 2089-1) 109 60-130 [facility] LancasterHDL Kzofholgcgm8421-19-96 07:23:00* Test Item Value Reference Range Interpretation Comments HDL Cholesterol (test code = 2085-9) 29 40-60 L [facility] LancasterCholesterol/HDL Fegmw2533-86-41 07:23:00 * Test Item Value Reference Range Interpretation Comments Cholesterol/HDL Ratio (test code = 9830-1) 6.2 3.0-3.6 H [facility] LancasterTriglycerides Cikmy8665-04-14 07:23:00* Test Item Value Reference Range Interpretation Comments Triglycerides Level (test code = 2571-8) 216 0-149 H [facility] LancasterCholesterol Waqik7240-13-58 07:23:00* Test Item Value Reference Range Interpretation Comments Cholesterol Level (test code = 2093-3) 181 0-199 Less than 200 mg/dL Low Sikk346 - 239 mg/dL Borderline Ukmp281 m g/dl and greater High Risk [facility] LancasterLDL Mufwonnqhgy5119-66-26 07:23:00* Test Item Value Reference Range Interpretation Comments LDL Cholesterol (test code = 2089-1) 109 60-130 [facility] Qdettwimmoy5972-82-40 07:23:00* Test Item Value Reference Range Interpretation Comments HDL Cholesterol (test code = 2085-9) 29 40-60 L [facility] LancasterCholesterol/HDL Fzzim5941-08-90 07:23:00 * Test Item Value Reference Range Interpretation Comments Cholesterol/HDL Ratio (test code = 9830-1) 6.2 3.0-3.6 H [facility] LancasterTriglycerides Eknkj8358-84-43 07:23:00* Test Item Value Reference Range Interpretation Comments Triglycerides Level (test code = 2571-8) 216 0-149 H [facility] LancasterCholesterol Jclap3027-91-28 07:23:00* Test Item Value Reference Range Interpretation Comments Cholesterol Level (test code = 2093-3) 181 0-199 Less than 200 mg/dL Low Twsj544 - 239 mg/dL Borderline Cpks379 m g/dl and greater High Risk [facility] LancasterLDL Kersbemlpfs9073-12-88 07:23:00* Test Item Value Reference Range Interpretation Comments LDL Cholesterol (test code = 2089-1) 109 60-130 [facility] Lqqqmoxyvsl4207-61-01 07:23:00* Test Item Value Reference Range Interpretation Comments HDL Cholesterol (test code = 2085-9) 29 40-60 L [facility]Ch[facility]/HDL Wqvgf9186-25-22 07:23:00 * Test Item Value Reference Range Interpretation Comments Cholesterol/HDL Ratio (test code = 9830-1) 6.2 3.0-3.6 H [facility] LancasterTriglycerides Hkawn6252-03-42 07:23:00* Test Item Value Reference Range Interpretation Comments Triglycerides Level (test code = 2571-8) 216 0-149 H [facility] LancasterCholesterol Mdojk5093-58-63 07:23:00* Test Item Value Reference Range Interpretation Comments Cholesterol Level (test code = 2093-3) 181 0-199 Less than 200 mg/dL Low Nelw107 - 239 mg/dL Borderline Cans335 m g/dl and greater High Risk [facility] LancasterLDL Rbzdxoqskit8945-95-48 07:23:00* Test Item Value Reference Range Interpretation Comments LDL Cholesterol (test code = 2089-1) 109 60-130 [facility] Grcsezyqqhg2509-60-23 07:23:00* Test Item Value Reference Range Interpretation Comments HDL Cholesterol (test code = 2085-9) 29 40-60 L [facility] LancasterCh[facility]/HDL Unihw7377-25-75 07:23:00 * Test Item Value Reference Range Interpretation Comments Cholesterol/HDL Ratio (test code = 9830-1) 6.2 3.0-3.6 H [facility] LancasterTriglycerides Aimth8317-78-86 07:23:00* Test Item Value Reference Range Interpretation Comments Triglycerides Level (test code = 2571-8) 216 0-149 H [facility] LancasterCholesterol Eaoum4709-87-11 07:23:00* Test Item Value Reference Range Interpretation Comments Cholesterol Level (test code = 2093-3) 181 0-199 Less than 200 mg/dL Low Erlj051 - 239 mg/dL Borderline Uzhe722 m g/dl and greater High Risk [facility] LancasterLDL Rvvmtstsona5475-61-78 07:23:00* Test Item Value Reference Range Interpretation Comments LDL Cholesterol (test code = 2089-1) 109 60-130 [facility] Siuuvythdyj7767-97-76 07:23:00* Test Item Value Reference Range Interpretation Comments HDL Cholesterol (test code = 2085-9) 29 40-60 L [facility]Ch[facility]/HDL Tsvfw9992-15-57 07:23:00 * Test Item Value Reference Range Interpretation Comments Cholesterol/HDL Ratio (test code = 9830-1) 6.2 3.0-3.6 H [facility] LancasterWhite Blood Xnhux7001-45-88 07:08:00* Test Item Value Reference Range Interpretation Comments White Blood Count (test code = 6690-2) 4.69 4.8-10.8 L [facility] LancasterRed Blood Yggml5661-79-95 07:08:00* Test Item Value Reference Range Interpretation Comments Red Blood Count (test code = 789-8) 4.53 3.6-5.1 [facility] LancasterHemoglobin2018-02-02 07:08:00* Test Item Value Reference Range Interpretation Comments Hemoglobin (test code = 75699-6) 11.9 12.0-16.0 L [facility] LancasterHematocrit2018-02-02 07:08:00* Test Item Value Reference Range Interpretation Comments Hematocrit (test code = 4544-3) 39.4 34.2-44.1 [facility] LancasterMean Corpuscular Jomqbb9060-66-80 07:08:00* Test Item Value Reference Range Interpretation Comments Mean Corpuscular Volume (test code = 787-2) 87.0 81-99 [facility] LancasterMean Corpuscular Eixzpstgrh1006-31-80 07:08:00* Test Item Value Reference Range Interpretation Comments Mean Corpuscular Hemoglobin (test code = 785-6) 26.3 28-32 L [facility] LancasterMean Corpuscular Hemoglobin Concent 2017-08-25 07:08:00* Test Item Value Reference Range Interpretation Comments Mean Corpuscular Hemoglobin Concent (test code = 786-4) 30.2 31-35 L [facility] LancasterRed Cell Distribution Pcgsr3333-99-51 07:08:00* Test Item Value Reference Range Interpretation Comments Red Cell Distribution Width (test code = 14647-9) 14.8 11.7 -14.4 H [facility] LancasterPlatelet Grqnn1359-79-29 07:08:00* Test Item Value Reference Range Interpretation Comments Platelet Count (test code = 777-3) 177 140-360 [facility] LancasterNeutrophils (%) (Auto)2017-08-25 07:08:00 * Test Item Value Reference Range Interpretation Comments Neutrophils (%) (Auto) (test code = 73437-2) 55.5 38.7-80.0 [facility] LancasterLymphocytes (%) (Auto)2017-08-25 07:08:00 * Test Item Value Reference Range Interpretation Comments Lymphocytes (%) (Auto) (test code = 736-9) 28.8 18.0-39.1 [facility] LancasterMonocytes (%) (Auto)2017-08-25 07:08:00* Test Item Value Reference Range Interpretation Comments Monocytes (%) (Auto) (test code = 5905-5) 8.7 4.4-11.3 [facility] LancasterEosinophils (%) (Auto)2017-08-25 07:08:00 * Test Item Value Reference Range Interpretation Comments Eosinophils (%) (Auto) (test code = 713-8) 5.1 0.0-6.0 [facility] LancasterBasophils (%) (Auto)2017-08-25 07:08:00* Test Item Value Reference Range Interpretation Comments Basophils (%) (Auto) (test code = 706-2) 1.3 0.0-1.0 H [facility] LancasterIM GRANULOCYTES %2017-08-25 07:08:00* Test Item Value Reference Range Interpretation Comments IM GRANULOCYTES % (test code = IM GRANULOCYTES %) 0.6 0.0- 1.0 [facility] LancasterNeutrophils # (Auto)2017-08-25 07:08:00* Test Item Value Reference Range Interpretation Comments Neutrophils # (Auto) (test code = 751-8) 2.6 2.1-6.9 [facility] LancasterLymphocytes # (Auto)2017-08-25 07:08:00* Test Item Value Reference Range Interpretation Comments Lymphocytes # (Auto) (test code = 72142-6) 1.4 1.0-3.2 [facility] LancasterMonocytes # (Auto)2017-08-25 07:08:00* Test Item Value Reference Range Interpretation Comments Monocytes # (Auto) (test code = 742-7) 0.4 0.2-0.8 [facility] LancasterEosinophils # (Auto)2017-08-25 07:08:00* Test Item Value Reference Range Interpretation Comments Eosinophils # (Auto) (test code = 711-2) 0.2 0.0-0.4 [facility] LancasterBasophils # (Auto)2017-08-25 07:08:00* Test Item Value Reference Range Interpretation Comments Basophils # (Auto) (test code = 704-7) 0.1 0.0-0.1 [facility] LancasterAbsolute Immature Granulocyte (auto 2017-08-25 07:08:00* Test Item Value Reference Range Interpretation Comments Absolute Immature Granulocyte (auto (joseph t code = Absolute Immature Granulocyte (auto) 0.03 0-0.1 [facility] LancasterCreatine Yjmuft8253-23-09 01:09:00* Test Item Value Reference Range Interpretation Comments Creatine Kinase (test code = 2157-6) 41 29-168 [facility] LancasterCreatine Kinase TE0491-80-23 01:09:00* Test Item Value Reference Range Interpretation Comments Creatine Kinase MB (test code = 50939-5) 1.30 0.00-5.00 [facility] LancasterTroponin A3068-59-99 01:09:00* Test Item Value Reference Range Interpretation Comments Troponin I (test code = 98380-2) 0.006 0-0.300 [facility] LancasterHemoglobin A1c Wpmzzqa0295-57-94 18:39:00 * Test Item Value Reference Range Interpretation Comments Hemoglobin A1c Percent (test code = Hemoglobin A1c Percent) 7.6 4.0-7.0 [facility] LancasterHemoglobin A1c Fnqqgwn9579-87-33 18:39:00 * Test Item Value Reference Range Interpretation Comments Hemoglobin A1c Percent (test code = Hemoglobin A1c Percent) 7.6 4.0-7.0 H [facility] LancasterHemoglobin A1c Ktuubvj1120-19-38 18:39:00 * Test Item Value Reference Range Interpretation Comments Hemoglobin A1c Percent (test code = Hemoglobin A1c Percent) 7.6 4.0-7.0 H [facility] LancasterHemoglobin A1c Btokqul9997-13-51 18:39:00 * Test Item Value Reference Range Interpretation Comments Hemoglobin A1c Percent (test code = Hemoglobin A1c Percent) 7.6 4.0-7.0 [facility] LancasterHemoglobin A1c Tzhmjir8247-85-22 18:39:00 * Test Item Value Reference Range Interpretation Comments Hemoglobin A1c Percent (test code = Hemoglobin A1c Percent) 7.6 4.0-7.0 [facility] LancasterHemoglobin A1c Otennib1239-89-11 18:39:00 * Test Item Value Reference Range Interpretation Comments Hemoglobin A1c Percent (test code = Hemoglobin A1c Percent) 7.6 4.0-7.0 [facility] LancasterHemoglobin A1c Cldsctg1190-56-95 18:39:00 * Test Item Value Reference Range Interpretation Comments Hemoglobin A1c Percent (test code = Hemoglobin A1c Percent) 7.6 4.0-7.0 [facility] LancasterHemoglobin A1c Hzfaucr6069-46-31 18:39:00 * Test Item Value Reference Range Interpretation Comments Hemoglobin A1c Percent (test code = Hemoglobin A1c Percent) 7.6 4.0-7.0 [facility] LancasterHemoglobin A1c Hmkoeuc6289-86-98 18:39:00 * Test Item Value Reference Range Interpretation Comments Hemoglobin A1c Percent (test code = Hemoglobin A1c Percent) 7.6 4.0-7.0 [facility] LancasterHemoglobin A1c Gzcrofg0554-73-09 18:39:00 * Test Item Value Reference Range Interpretation Comments Hemoglobin A1c Percent (test code = Hemoglobin A1c Percent) 7.6 4.0-7.0 H [facility] LancasterUrine YPQ5382-62-24 07:50:00* Test Item Value Reference Range Interpretation Comments Urine WBC (test code = 5821-4) 0-5 0-5 [facility] LancasterUrine XBL2740-85-48 07:50:00* Test Item Value Reference Range Interpretation Comments Urine RBC (test code = 46928-6) 0-5 0-5 [facility] LancasterUrine Tgrmowfa1400-89-15 07:50:00* Test Item Value Reference Range Interpretation Comments Urine Bacteria (test code = 88362-5) FEW NONE [facility] LancasterUrine Epithelial Nhwzn3845-87-48 07:50:00 * Test Item Value Reference Range Interpretation Comments Urine Epithelial Cells (test code = 08501-4) FEW NONE [facility] LancasterB-Type Natriuretic Vpzwulx5727-75-77 07:47:00* Test Item Value Reference Range Interpretation Comments B-Type Natriuretic Peptide (test code = 29869-0) 17.8 0-100 [facility] LancasterThyroid Stimulating Hormone (TSH) 2017-08-24 07:47:00* Test Item Value Reference Range Interpretation Comments Thyroid Stimulating Hormone (TSH) (test code = 26967-9) 1.123 0.350-4.940 [facility] LancasterInfluenza Virus Types A,B Antigen 2017-08-24 07:39:00* Test Item Value Reference Range Interpretation Comments Influenza Virus Types A,B Antigen (test code = 53032-0) NEGATIVE NEGATIVE [facility] Wrxbg5532-94-72 07:32:00* Test Item Value Reference Range Interpretation Comments Magnesium Level (test code = 47339-3) 2.0 1.3-2.1 [facility] Nzxvr8106-11-47 07:32:00* Test Item Value Reference Range Interpretation Comments Magnesium Level (test code = 81940-9) 2.0 1.3-2.1 [facility] Ggzft9388-68-93 07:32:00* Test Item Value Reference Range Interpretation Comments Magnesium Level (test code = 99908-2) 2.0 1.3-2.1 [facility] LancasterProthrombin Zkol9907-20-32 07:19:00* Test Item Value Reference Range Interpretation Comments Prothrombin Time (test code = 5902-2) 13.0 11.9-14.5 [facility] LancasterProthromb Time International Ratio 2017-08-24 07:19:00* Test Item Value Reference Range Interpretation Comments Prothromb Time International Ratio (test code = 6301-6) 0.94 Oral Anticoagulant Therapy INR Values:1. Low Intensity Therapy 1.5 - 2.02 . Moderate Intensity Therapy 2.0 - 3.03. High Intensity Therapy(1) 2.5 - 3. 54. High Intensity Therapy(2) 3.0 - 4.05. Panic Value INR > 5.0 [facility] LancasterActivated Partial Thromboplast Time 2017-08-24 07:19:00* Test Item Value Reference Range Interpretation Comments Activated Partial Thromboplast Time (test code = 40296-4) 25.1 23.8-35.5 [facility] LancasterUrine Zmphq1932-22-56 07:18:00* Test Item Value Reference Range Interpretation Comments Urine Color (test code = 5778-6) YELLOW YELLOW [facility] LancasterUrine Pylxowt4777-61-06 07:18:00* Test Item Value Reference Range Interpretation Comments Urine Clarity (test code = 07948-9) CLEAR CLEAR [facility] LancasterUrine Specific Szyfgrb2231-40-69 07:18:00 * Test Item Value Reference Range Interpretation Comments Urine Specific [place] (test code = 5811-5) 1.025 1.010-1.02 5 [facility] LancasterUrine aJ6559-02-68 07:18:00* Test Item Value Reference Range Interpretation Comments Urine pH (test code = 37954-7) 5 5-7 [facility] LancasterU[facility] Leukocyte Qcluwfsu6457-71-20 07:18:00* Test Item Value Reference Range Interpretation Comments Urine Leukocyte Esterase (test code = 5799-2) NEGATIVE NEGATIVE [facility] LancasterUrine Twelfcj9974-57-57 07:18:00* Test Item Value Reference Range Interpretation Comments Urine Nitrite (test code = 45767-7) NEGATIVE NEGATIVE [facility] LancasterUrine Ikbuuog1564-94-00 07:18:00* Test Item Value Reference Range Interpretation Comments Urine Protein (test code = 5804-0) NEGATIVE NEGATIVE [facility] LancasterUrine Glucose (UA)2017-08-24 07:18:00* Test Item Value Reference Range Interpretation Comments Urine Glucose (UA) (test code = 2349-9) 3+ NEGATIVE H [facility] LancasterUrine Dvlofji2246-34-97 07:18:00* Test Item Value Reference Range Interpretation Comments Urine Ketones (test code = 47508-7) NEGATIVE NEGATIVE [facility] LancasterUrine Fhrnmixntyun1062-19-62 07:18:00* Test Item Value Reference Range Interpretation Comments Urine Urobilinogen (test code = 59913-7) 0.2 0.2-1 [facility] LancasterUrine Lijkxbdne9803-37-58 07:18:00* Test Item Value Reference Range Interpretation Comments Urine Bilirubin (test code = 1978-6) NEGATIVE NEGATIVE [facility] LancasterUrine Buhtf2829-55-61 07:18:00* Test Item Value Reference Range Interpretation Comments Urine Blood (test code = 29328-5) NEGATIVE NEGATIVE [facility] LancasterUS RENAL RETROPERITONEAL COMP [facility] [address] [address] Patient Name: KALYANI TALAVERA MR #: [id number] : 1955 Age/Sex: 62/F Req #: [id number] Adm Physician: BENJAMIN MASTERS MD Ordered by: BENJAMIN MASTERS MD Report #: [id number] Locat ion: [facility] Room/Bed: [place] [address] Procedure: [id number] U S/US RENAL RETROPERITONEAL COMP Exam Date: Exam John e: REPORT STATUS: Signed PROCEDURE: US RETROPERITONEAL ( KIDNEY ). COMPARISON: None. INDICATIONS: CKD TECHNIQUE: Perez scale color Doppl er ultrasound kidneys FINDINGS: Right: 10 x 5.3 x 5 cm. Cortical thic kness 1.5 cm Left: 11.2 x 5 x 4.6 cm. Cortical thickness 1.5 cm Both kid neys are normal. No stones, cysts or masses. Normal urinary bladder. No co nspicuous ureteral jets, but no evidence of obstruction. CONCLUSION: Normal renal ultrasound. Dictated by: Lachelle Munoz M.D. on 10/2017 at 11:40 Electronically approved by: Lachelle Munoz M.D. on 12/25/2017 at 11:40 Dictated By: LACHELLE MUNOZ MD Electronica lly Signed By: LACHELLE MUNOZ MD on 12/25/17 1140 Transcribed By: ZOLTAN on 11/08 1140 COPY TO: BENJAMIN MASTERS MD CT BRAIN WO [place] [address] Patient Name: KALYANI TALAVERA MR #: [id number] : 1955 Age/Sex: 62/F Req #: [id number] Adm Physician: Ordered by: FLO TOLBERT MD Report #: [id number] Location: ER Room/Bed: Procedure: [id number] CT/CT BRAIN WO Exam Date: Exam Time: 2200 REPORT STATUS: Signed Examination: CT BRAIN WITHOUT CONTRAST History:Dizziness. Comparison ken dies:Head CT performed August 24, 2017. Technique: Axial images were obt ained from the skull base to the vertex. Coronal and sagittal images reconstru cted from the axial data. Intravenous contrast: None Findings: Scalp : No abnormalities. Bones: No fractures, blastic or lytic lesions. Brain sulci: Appropriate for age. Ventricles: Normal in size and configuration. No h ydrocephalus. Extra-axial space: No abnormalities. Parenchyma: No abnormal densities. No masses, hemorrhage, or acute or chronic cortical based vascular insults.. Sellar/suprasellar region: No abnormalities. Cranioc ervical junction: Patent foramen magnum. No Chiari one malformation. Incide ntal findings: None. Impression: No new or acute intracranial abno rmalities. No change from prior head CT performed August 24, 2017. Christiane d by: Dr. Lauren Jose M.D. on 12/23/2017 10:25 PM Dictated By: MATA JESUS MD 24 Transcribed By: JIM on 12/23/172224 COPY TO: Treasure TOLBERT MD CHEST 2 VIEWS [place] [address] Patient Name: KALYANI TALAVERA MR #: [id number] : 1955 Age/Sex: 62/F Req #: [id number] Adm Physician: Ordered by: FLO TOLBERT MD Report #: [id number] Location: ER Room/Bed: Procedure: [id number] DX/CHEST 2 VIEWS Exam Date: 12/23/17 Exam Time: 2209 REPORT STATUS: Signed CHEST 2 VIEWS, Technique: CHEST 2 VIEWS Comparison: 10/12/2017 Cl inical history: Near syncope DISCUSSION: See impression IMPRESSION : 1. Stable mildly enlarged cardiomediastinal silhouette. 2. Diffuse interst itial prominence which may reflect central vascular congestion/edema. 3. No consolidation, pleural effusion or pneumothorax. Signed by: Dr Mikey guzman MD on 12/23/2017 10:43 PM Dictated By: MIKEY BEE MD Electronicall y Signed By: MIKEY BEE MD on 12/23/172242 Transcribed By: JIM on 09/10 COPY TO: FLO TOLBERT MD KNEE LEFT THREE VIEWS [place] [address] Patient Name: KALYANI TALAVERA MR #: [id number] : 1955 Age/Sex: 62/F Req #: [id number] Adm Physician: Ordered by: JACQUES JANE MD Report #: [id number] Location: ER Room/Bed: Procedure: [id number] DX/KNEE LEFT THREE VIE WS Exam Date: 10/31/17 Exam Time: 219 REPORT STATUS: Signed EXAM: KNEE LEFT THREE VIEWS, AP, lateral and oblique INDICAT ION: Fell out of bed, pain in left leg COMPARISON: None FINDINGS: BONES : No acute fractures. JOINTS: No malalignment. SOFT TISSUES: No rmal IMPRESSION: No evidence of a left knee fracture. Signed by: Dr. Caesar Davis M.D. on 10/31/2017 2:47 AM Dictated By: CAESAR CREWS MD 6 Transcribed By: JIM on 10/31/17246 COPY TO: JACQUES JANE MD PELVIS AP 1-2 VIEWS [place] [address] Patient Name: KALYANI TALAVERA MR #: [id number] : 1955 Age/Sex: 62/F Req #: [id number] Adm Physician: Ordered by: JACQUES JANE MD Report #: [id number] Location: ER Room/Bed: Procedure: [id number] DX/PELVIS AP 1-2 VIEWS Exam Date: 10/31/17 Exam Time: [address] ATUS: Signed EXAM: PELVIS AP 1-2 VIEWS INDICATION: Fell out of bed COMPAR ROBERTO: None FINDINGS: BONES: No evidence of a pelvic fracture. The ri ght femoral neck is not seen in profile. JOINTS: No malalignment. SO FT TISSUES: Normal IMPRESSION: No evidence of a pelvic fracture. Inco mplete evaluation of the right femoral neck. If the patient has right hip pain , dedicated images of the right hip are recommended. Signed by: Dr. Caesar Davis M.D. on 10/31/2017 2:46 AM Dictated By: CAESAR DAVIS MD E lectronically Signed By: CAESAR DAVIS MD on 10/31/17245 Transcribed By: ROMULO DAVILA on 10/31/17245 COPY TO: JACQUES JANE MD CHEST 2 VIEWS [place] [address] Patient Name: KALYANI TALAVERA MR #: [id number] : 1955 Age/Sex: 62/F Req #: [id number] Adm Physician: Ordered by: FLO TOLBERT MD Report #: [id number] Location: ER Room/Bed: Procedure: [id number] DX/CHEST 2 VIEWS Exam Date: 10/12/17 Exam Time: 39 REPORT STATUS: Signed EXAM: CHEST 2 VIEWS, PA and lateral INDICATION: Shortness of breath NINA RISON: AP view of the chest September 25, 2017 FINDINGS: LINES/TUBES: None LUNGS: Stable edema. PLEURA: No effusions or pneumothorax. HEART AND MEDIASTINUM: Stable appearance. BONES AND SOFT TISSUES: No acute findings. IMPRESSION: Stable mild pulmonary edema. Signed by: Dr. Caesar Davis M.D. on 10/12/2017 1:07 AM Dictated By: CAESAR DAVIS MD 6 Transcribed By: LANA MCADAMS on 10/12/17106 COPY TO: FLO TOLBERT MD FOOT RIGHT COMPLETE [facility] [address] [address] Patient Name: KALYANI TALAVERA MR #: [id number] : 1955 Age/Sex: 62/F Req #: [id number] Adm Physician: Ordered by: JEFFREY MCDUFFIE MD Report #: [id number] Location: ER Room/Bed: Procedure: [id number] DX/FOOT RIGHT COMPLETE Exa m Date: 10/11/17 Exam Time: 0800 REPORT STATUS: Signed PROCEDURE: X-RAY RIGHT FOOT, COMPLETE COMPARISON: None. INDICATIONS: POST FALL FINDINGS: No acute, displaced fracture or dislocation. Appropriate alignment between the medial cuneiform and second metatarsal base in keeping with an intact Lisfranc ligament. Joint spaces are well-maintained. Minimal degenerative calcaneal spur. Soft tissue swelling a bout the midfoot. CONCLUSION: Mid foot soft tissue swelling witho ut underlying acute osseous abnormality. Dictated by: Jacinda Eastman M.D. on 10/11/2017 at 8:39 Electronically approved by: Jacinda Eastman M.D. on 2017 at 8:39 Dictated By: JACINDA EASTMAN MD 8 Transcribed By: ZOLTAN on 10/11/17838 COPY TO: JEFFREY MCDUFFIE MD KNEE LEFT THREE VIEWS [place] [address] Patient Name: KALYANI TALAVERA MR #: [id number] : 1955 Age/Sex: 62/F Req #: [id number] Adm Physician: Ordered by: JEFFREY MCDUFFIE MD Report #: [id number] Location: ER Room/Bed: Procedure: [id number] DX/KNEE LEFT THREE VIEWS E xam Date: 10/11/17 Exam Time: 0800 REPORT STATU S: Signed PROCEDURE: X-RAY LEFT KNEE, THREE OR MORE VIEWS COMPARISON: None. INDICATIONS: POST FALL FINDINGS: No acute, displaced fracture or dislocation. Mild medial and patellofemoral compartment degener ative changes. No joint effusion. No focal soft tissue abnormalities. CO NCLUSION: No acute osseous abnormality. Dictated by: Jacinda de dios 10/11/2017 at 8:40 Electronically approved by: Jacinda Eastman M.D. on 10/11 at 8:40 Dictated By: JACINDA EASTMAN MD Electronically Christiane d By: JACINDA EASTMAN MD on 10/11/17839 Transcribed By: ZOLTAN on 10/11/17839 COPY TO: JEFFREY MCDUFFIE MD CT CHEST WO [place] [address] Patient Name: KALYANI TALAVERA MR #: [id number] : 1955 Age/Sex: 62/F Req #: [id number] Adm Physician: Ordered by: RAFAELA ASTUDILLO ASSISTANT INVENTORY MANAGER Report #: [id number] Location: ER Room/Bed: Procedure: [id number] CT/CT CHEST WO Exam Date: Exam Time: 1220 REPORT STATUS: Signed EXAM: CT Chest WITHOUT contrast INDICATION: COMPARISON: Chest x-ray dated 10/15/2016 TECHNIQUE: Chest was scanned utilizing a multidet crispin helical scanner from the lung apex through the level of the adrenal glan ds without administration of IV contrast. Absence of intravenous contrast decr eases sensitivity for detection of lymphadenopathy and vascular pathology. Cor onal and sagittal reformations were obtained. Routine protocol was performed. IV CONTRAST: None COMPLICATIONS: None RADIATION DOSE: Total DLP: 462.77 mGy*cm Estimated effective dose: (DLP x 0.014 x size factor) mSv CTDIvol has been reviewed. It is below the limits set by the Radiation Protocol Committee (RPC). FINDINGS: LINES/ TUBE S: None. LUNGS AND AIRWAYS: Evaluation of the lungs are limited by respira tory motion. Bibasilar subsegmental atelectasis. Pulmonary vascular congestio n. Mildly increased areas of groundglass haziness. Airways are normal. PL EURA: The pleural spaces are clear. HEART AND MEDIASTINUM: Prominent hetero geneous right thyroid lobe. Few scattered mediastinal lymph nodes, the larges t in the right paratracheal region measuring 1.6 cm (series 2, image 38). Limi yuridia for evaluation of hilar regions without intravenous contrast. No axillary lymphadenopathy. The heart is enlarged. There is no pericardial effusion. Ma in pulmonary artery measures 3.7 cm, suggestive of pulmonary hypertension. UPPER ABDOMEN: Hepatic steatosis. BONES: The visualized bony thorax is wi thin normal limits. SOFT TISSUES: Unremarkable. IMPRESSION: 1. Eval uation of the lungs are limited priors for same motion. No definite focal cons olidation to suggest pneumonia. 2. Cardiomegaly, pulmonary vascular congestio n, and areas of mildly increased groundglass haziness, suggestive of mild inte rstitial edema. 3. Prominent heterogeneous right thyroid lobe with probably u nderlying nodules. Recommend further evaluation with nonurgent thyroid ultraso und. Signed by: Dr. Shirley Brandon MD on 09/25/2017 1:07 PM Dictated B y: SHIRLEY BRANDON MD 1307 Transcribed By: JIM on 09/25/17 1307 COPY TO: RAFAELA ASTUDILLO ASSISTANT INVENTORY MANAGER CHEST SINGLE (PORTABLE) [place] [address] Patient Name: KALYANI TALAVERA MR #: [id number] : 1955 Age/Sex: 62/F Req #: [id number] Adm Physician: Ordered by: RAFAELA ASTUDILLO ASSISTANT INVENTORY MANAGER Report #: [id number] Location: ER Room/Bed: Procedure: [id number] DX/CHEST SINGLE (PORTABLE) E xam Date: 09/25/17 Exam Time: 1020 REPORT STATU S: Signed PROCEDURE: A single AP view of the chest. COMPARISON: Chest 2 views 08/24/2017. INDICATIONS: SHORTNESS OF BREATHE FINDINGS: Lines/tubes: None. Lungs: Bilateral multifocal airspace opacities. Low lung volumes are present bilaterally. No parenchymal mass. Pleura: T here is no pleural effusion or pneumothorax. Heart and mediastinum: The h eart and the mediastinum are unremarkable. Bones: No acute bony abnormali ty. IMPRESSION: Bilateral airspace opacities may represent atelecta sis or developing pneumonia. Dictated by: Mae Sanchez M.D. on 09/26/19 18 at 11:06 Electronically approved by: Mae Sanchez M.D. on 09/25/2017 a t 11:06 Dictated By: MAE SANCHEZ MD 110 Transcribed By: ZOLTAN on 09/25/17 1106 COPY TO: RAFAELA ASTUDILLO ASSISTANT INVENTORY MANAGER CHEST 2 VIEWS [place] [address] Patient Name: KALYANI TALAVERA MR #: [id number] : 1955 Age/Sex: 62/F Req #: [id number] Adm Physician: Ordered by: FLO TOLBERT MD Report #: [id number] Location: ER Room/Bed: Procedure: [id number] DX/CHEST 2 VIEWS Exam Date: Exam Time: 0715 REPORT STATUS: Signed PROCEDURE: CHEST 2 VIEWS TECHNIQUE: PA and lateral chest totaling 2 radio graphs INDICATION: Shortness of breath and syncope COMPARISON: [facility], DX, CHEST 2 VIEWS, 10/15/2016, 23:42. FINDINGS: Bilate ral interstitial opacity, cardiomegaly and central vascular prominence. No si zable pleural effusion. Stable elevation of the right hemidiaphragm. Intact s ke[place]. CONCLUSION: Cardiomegaly with pulmonary edema. Dictated by: Lachelle Munoz M.D. on 08/24/2017 at 7:51 Electronica lly approved by: Lachelle Munoz M.D. on 08/24/2017 at 7:51 Dictated By: LACHELLE MUNOZ MD 0 Transcribed By: ZOLTAN on 08/24/17750 COPY TO: AILEEN TOLBERT MD CT CERVICAL SPINE WO [place] [address] Patient Name: KALYANI TALAVERA MR #: [id number] : 1955 Age/Sex: 62/F Req #: [id number] Adm Physician: Ordered by: FLO TOLBERT MD Report #: [id number] Location: ER Room/Bed: Procedure: [id number] CT/CT CERVICAL SPINE WO Exam D ate: 08/24/17 Exam Time: 0710 REPORT STATUS: Si gned History: Fall, syncope Comparison studies:CT head 09/13/2014 Techn ique: Axial images were obtained from the brain and cervical spine. Coronal and sagittal images reconstructed from the axial data. Intravenous contrast: N one Findings: Head CT: Scalp/skull: No abnormalities. No fract ures, blastic or lytic lesions. Brain sulci: Appropriate for age. Ventric les: Normal in size and configuration. No hydrocephalus. Extra-axial spaces : No masses. No fluid collections. Parenchyma: No abnormal densities . No masses, hemorrhage, acute or chronic cortical vascular insults. Kasey lar/suprasellar region: No abnormalities. Craniocervical junction: Patent fora men magnum. No Chiari one malformation. Cervical spine CT: Fractures: None. Soft tissues: Hypodense right lobe thyroid nodule with peripheral and c entral small calcifications measuring approximately 1.2 cm. Atlantoaxial articulation: Mild degenerative changes without acute abnormality. Alignment: Normal lordosis. No scoliosis. Cervicomedullary junction: No abnormalities. Pa tent foramen magnum. Vertebrae: No infection or neoplasm. Degenerat mary changes: Facet hypertrophy and uncinate process hypertrophy without signi ficant canal stenosis or foraminal narrowing. Incidental findings: Athe rosclerotic calcifications of the aortic arch and carotid bulbs. Impression : Head CT: 1. No acute abnormality. Cervical spine CT: 1. No acu te abnormalities. Degenerative changes 2. Cannot exclude ligament, spinal cor d and or vascular abnormalities on the basis of this examination. 3. Right thyroid nodule with peripheral and central small calcifications recommend furt her evaluation with nonemergent thyroid ultrasound Signed by: DR Riley Maya M.D. on 08/24/2017 7:54 AM Dictated By: RILEY WYNN MD 3 Transcribed By : JIM on 08/24/17753 COPY TO: FLO TOLBERT MD CT BRAIN WO [place] [address] Patient Name: KALYANI TALAVERA MR #: [id number] : 0 1955 Age/Sex: 62/F Req #: [id number] Adm Physician: Ordered by: FLO TOLBERT MD Report #: [id number] Location: ER Room/Bed: Procedure: [id number] CT/CT BRAIN WO Exam Date: 08/10 Exam Time: 0710 REPORT STATUS: Signed H istory: Fall, syncope Comparison studies:CT head 09/13/2014 Technique: A xial images were obtained from the brain and cervical spine. Coronal and sagit anup images reconstructed from the axial data. Intravenous contrast: None Findings: Head CT: Scalp/skull: No abnormalities. No fractures, talat stic or lytic lesions. Brain sulci: Appropriate for age. Ventricles: Norm al in size and configuration. No hydrocephalus. Extra-axial spaces: No m asses. No fluid collections. Parenchyma: No abnormal densities. No m asses, hemorrhage, acute or chronic cortical vascular insults. Sellar/supra sellar region: No abnormalities. Craniocervical junction: Patent foramen magnu m. No Chiari one malformation. Cervical spine CT: Fractures: None. Soft tissues: Hypodense right lobe thyroid nodule with peripheral and central small calcifications measuring approximately 1.2 cm. Atlantoaxial articulat ion: Mild degenerative changes without acute abnormality. Alignment: Normal lo rdosis. No scoliosis. Cervicomedullary junction: No abnormalities. Patent fora men magnum. Vertebrae: No infection or neoplasm. Degenerative escobar es: Facet hypertrophy and uncinate process hypertrophy without significant ca nal stenosis or foraminal narrowing. Incidental findings: Atherosclerot ic calcifications of the aortic arch and carotid bulbs. Impression: He ad CT: 1. No acute abnormality. Cervical spine CT: 1. No acute abnorm alities. Degenerative changes 2. Cannot exclude ligament, spinal cord and or vascular abnormalities on the basis of this examination. 3. Right thyroid n odule with peripheral and central small calcifications recommend further evalu ation with nonemergent thyroid ultrasound Signed by: DR Riley patterson M.D. on 08/24/2017 7:54 AM Dictated By: RILEY Malcolm cecilia Signed By: RILEY WYNN MD on 08/24/17 0759 Transcribed By: JIM on 08/24/17 5162 COPY TO: FLO TOLBERT MD
[2020-02-26 14:08] LABS: BASOPHILS % 0.6 % (0.0-1.0); EOSINOPHILS % 0.6 % (0.0-6.0); HEMATOCRIT 30.1 % (34.2-44.1); HEMOGLOBIN 8.6 g/dL (12.0-16.0); LYMPHOCYTES # (AUTO) 0.5 (1.0-3.2); LYMPHOCYTES % 8.1 % (18.0-39.1); MEAN CORPUSCULAR HEMOGLOBIN 21.1 pg (28-32); MEAN CORPUSCULAR HGB CONC 28.6 g/dL (31-35); MEAN CORPUSCULAR VOLUME 73.8 fL (81-99); MONOCYTES # (AUTO) 0.2 (0.2-0.8); MONOCYTES % 3.7 % (4.4-11.3); NEUTROPHILS # (AUTO) 5.2 (2.1-6.9); NEUTROPHILS % 84.9 % (38.7-80.0); PLATELET COUNT 150 x10e3/uL (140-360); RED BLOOD COUNT 4.08 x10e6/uL (3.6-5.1); RED CELL DISTRIBUTION WIDTH 16.7 % (11.7-14.4)
[2020-02-26 14:20] LABS: INR 1.03; PARTIAL THROMBOPLASTIN TIME 24.3 seconds (23.8-35.5)
[2020-02-26 14:28] LABS: ALANINE AMINOTRANSFERASE 17 IU/L (0-55); ALBUMIN 3.2 g/dL (3.5-5.0); ALBUMIN/GLOBULIN RATIO 0.9 (0.8-2.0); ALKALINE PHOSPHATASE 125 IU/L (40-150); ANION GAP 17.2 mmol/L (8-16); BLOOD UREA NITROGEN 28 mg/dL (7-26); BUN/CREATININE RATIO 24 (6-25); CALCIUM 9.2 mg/dL (8.4-10.2); CARBON DIOXIDE 23 mmol/L (22-29); CHLORIDE 102 mmol/L (98-107); CREATINE KINASE 16 IU/L (29-168); CREATININE, SERUM 1.15 mg/dL (0.57-1.11); EST GLOMERULAR FILTRATION RATE 48 ML/MIN (60-); SODIUM 137 mmol/L (136-145)
[2020-02-26 14:32] LABS: GLUCOSE 489 mg/dL (74-118); POTASSIUM 5.2 mmol/L (3.5-5.1)
--- NOTE | 2020-02-26 14:39 | Diagnostic Imaging Report ---
EXAMINATION: CHEST SINGLE (PORTABLE) INDICATION: Rectal bleeding COMPARISON: Chest radiograph 02/08/2020 FINDINGS: LINES/TUBES:EKG leads overlie the chest. LUNGS:The lungs are moderately inflated. No focal consolidation. Mild bibasilar subsegmental atelectasis. PLEURA:No pleural effusion or pneumothorax. MEDIASTINUM:The cardiomediastinal silhouette appears normal in size and shape. BONES/SOFT TISSUES:No acute osseous injury. ABDOMEN:No free air under the diaphragm. IMPRESSION: No focal pneumonia or pulmonary edema. Mild bibasilar subsegmental atelectasis. Signed by: Kiley Bernal MD on 02/26/2020 2:36 PM
[2020-02-26 14:49] LABS: BILIRUBIN,URINE NEGATIVE (NEGATIVE); CLARITY,URINE SL CLOUDY (CLEAR); COLOR,URINE YELLOW (YELLOW); KETONES,URINE 1+ (NEGATIVE); LEUKOCYTE ESTERASE ,URINE NEGATIVE (NEGATIVE); NITRITE,URINE NEGATIVE (NEGATIVE); PROTEIN,URINE DIPSTICK NEGATIVE (NEGATIVE); URINE UROBILINOGEN 0.2 mg/dL (0.2 - 1)
[2020-02-26 14:52] LABS: OCCULT BLOOD STOOL POSITIVE (NEGATIVE)
[2020-02-26 15:03] LABS: BACTERIA,URINE MODERATE /HPF; EPITHELIAL CELLS,URINE MODERATE /LPF
[2020-02-26] MEDS ORDERED: SODIUM CHLORIDE 0.9% 500ML 500 ML IV ONE (15:45)
[2020-02-26] MEDS ORDERED: INSULIN REGULAR, HUMAN 100 UNIT/1 ML 3ML VIAL IV ONE (15:45)
--- NOTE | 2020-02-26 15:54 | NUR ---
PATIENT GIVEN GLYCERIN SWABS FOR HER MOUTH. AWAITING RADILOGY RESULTS
--- NOTE | 2020-02-26 17:03 | Diagnostic Imaging Report ---
EXAM: CT Abdomen and Pelvis WITHOUT intravenous contrast INDICATION: Rectal bleeding COMPARISON: CT abdomen pelvis of 02/05/2020 TECHNIQUE: Abdomen and pelvis were scanned utilizing a multidetector helical scanner from the lung base to the pubic symphysis without administration of IV contrast. Coronal and sagittal reformations were obtained. IV CONTRAST: None ORAL CONTRAST: Water COMPLICATIONS: None RADIATION DOSE: Total DLP: 981 mGy*cm Dose modulation, iterative reconstruction, and/or weight based adjustment of the mA/kV was utilized to reduce the radiation dose to as low as reasonably achievable. FINDINGS: LOWER THORAX: Mild bibasilar dependent subsegmental atelectasis. HEPATOBILIARY: No focal liver lesion. Unremarkable gallbladder. SPLEEN: Splenomegaly to 16 cm. PANCREAS: No focal masses or ductal dilatation. ADRENALS: No adrenal nodules. KIDNEYS/URETERS: No hydronephrosis, stones, or solid mass lesions. PELVIC ORGANS/BLADDER: Unremarkable. PERITONEUM / RETROPERITONEUM: No free air or fluid. LYMPH NODES: No lymphadenopathy. VESSELS: Moderate atherosclerotic calcifications of the nonaneurysmal abdominal aorta and major branches. GI TRACT: Mild descending colon and proximal sigmoid colon wall thickening with associated pericolonic fat stranding. No associated free air or focal fluid collection. BONES AND SOFT TISSUES: No acute osseous injury. No suspicious lytic or blastic lesions. IMPRESSION: Mild ascending colon and proximal sigmoid colon wall thickening with associated pericolonic fat stranding can be seen in the setting of colitis. No free air or focal fluid collection. Signed by: Kiley Bernal MD on 02/26/2020 4:59 PM
[2020-02-26] MEDS ORDERED: SODIUM CHLORIDE 0.9% 1000ML 1,000 ML IV SCH (17:45)
[2020-02-26] MEDS ORDERED: DEXTROSE 50% SYRINGE 50 ML IV PRN (17:45)
--- NOTE | 2020-02-26 17:50 | Emergency Department Note ---
History of Present Illnes History of Present Illness Chief Complaint: Abdominal Complaints History of Present Illness This is a 64 year old female BRIGHT RED RECTAL BLEEDING ONSET YESTERDAY. ON ELIQUIS. 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 Any updates have been documented here. Past Medical History Recent Fever: No Clinical Suspicion of Infectio: No New/Unexplained Change in Ment: No Past Medical History: Hypertension, Diabetes, COPD, CHF, UTI's, Anxiety, Depression, GERD, Hyperlipedemia, Chronic Back Pain Other Medical History: sleep apnea restless leg syndrome diabetic neuropathy Past Surgical History: Appendectomy Other Surgery: left foot sx Social History Smoking Cessation: Former smoker Counseling Performed: Yes Alcohol Use: None Any Illegal Drug Use: No TB Exposure/Symptoms: No Physically hurt or threatened: No Family History Family history of heart diseas: No Other Last Tetanus: UNK Any Pre-Existing Lines (PICC,: No Review of Systems Review of Systems Constitutional: Reports no symptoms EENTM: Reports no symptoms Cardiovascular: Reports no symptoms Respiratory: Reports no symptoms Gastrointestinal: Reports as per HPI, Reports abdominal pain Genitourinary: Reports no symptoms Musculoskeletal: Reports no symptoms Integumentary: Reports no symptoms Neurological: Reports no symptoms Psychological: Reports no symptoms Endocrine: Reports no symptoms Hematological/Lymphatic: Reports no symptoms Physical Exam Related Data Allergies: Coded Allergies: Penicillins (Verified Allergy, Unknown, rash, 01/10/19) Triage Vital Signs Vital Signs Date Time Temp Pulse Resp B/P (MAP) Pulse Ox O2 Delivery O2 Flow Rate FiO2 02/26/20 12:40 98.4 80 16 136/70 98 Room Air Vital signs reviewed: Yes Physical Exam CONSTITUTIONAL Constitutional: Present well-developed, Present well-nourished HENT HENT: Present normocephalic, Present atraumatic, Present oropharynx clear/moist, Present nose normal HENT L/R: Present left ext ear normal, Present right ext ear normal EYES Eyes: Reports PERRL, Reports conjunctivae normal NECK Neck: Present ROM normal PULMONARY Pulmonary: Present effort normal, Present breath sounds normal CARDIOVASCULAR Cardiovascular: Present regular rhythm, Present heart sounds normal, Present capillary refill normal, Present normal rate GASTROINTESTINAL Abdominal: Present soft, Present bowel sounds normal, Present tender (MILD TENDERNESS DIFFUSELY WITH NO R/G); Absent guarding, Absent rebound GENITOURINARY Genitourinary: Present exam deferred SKIN Skin: Present warm, Present dry MUSCULOSKELETAL Musculoskeletal: Present ROM normal NEUROLOGICAL Neurological: Present alert, Present oriented x 3, Present no gross motor or sensory deficits PSYCHOLOGICAL Psychological: Present mood/affect normal, Present judgement normal Results Laboratory Result Diagram: 02/26/20 1335 02/26/20 1335 Laboratory Laboratory Tests Test 02/26/20 14:20 02/26/20 13:35 Urine Color Yellow (YELLOW) Urine Clarity Sl cloudy (CLEAR) Urine pH 5.5 (5 - 7) Urine Specific [place] 1.020 (1.010-1.025) Urine Protein Negative (NEGATIVE) Urine Glucose (UA) 2+ (NEGATIVE) Urine Ketones 1+ (NEGATIVE) Urine Blood Negative (NEGATIVE) Urine Nitrite Negative (NEGATIVE) Urine Bilirubin Negative (NEGATIVE) Urine Urobilinogen 0.2 mg/dL (0.2 - 1) Urine Leukocyte Esterase Negative (NEGATIVE) Urine RBC None /HPF (0-5) Urine WBC None /HPF (0-5) Urine Epithelial Cells Moderate /LPF (NONE) Urine Bacteria Moderate /HPF (NONE) Stool Occult Blood Positive (NEGATIVE) White Blood Count 6.16 x10e3/uL (4.8-10.8) Red Blood Count 4.08 x10e6/uL (3.6-5.1) Hemoglobin 8.6 g/dL (12.0-16.0) Hematocrit 30.1 % (34.2-44.1) Mean Corpuscular Volume 73.8 fL (81-99) Mean Corpuscular Hemoglobin 21.1 pg (28-32) Mean Corpuscular Hemoglobin Concent 28.6 g/dL (31-35) Red Cell Distribution Width 16.7 % (11.7-14.4) Platelet Count 150 x10e3/uL (140-360) Neutrophils (%) (Auto) 84.9 % (38.7-80.0) Lymphocytes (%) (Auto) 8.1 % (18.0-39.1) Monocytes (%) (Auto) 3.7 % (4.4-11.3) Eosinophils (%) (Auto) 0.6 % (0.0-6.0) Basophils (%) (Auto) 0.6 % (0.0-1.0) Neutrophils # (Auto) 5.2 (2.1-6.9) Lymphocytes # (Auto) 0.5 (1.0-3.2) Monocytes # (Auto) 0.2 (0.2-0.8) Eosinophils # (Auto) 0.0 (0.0-0.4) Basophils # (Auto) 0.0 (0.0-0.1) Absolute Immature Granulocyte (auto 0.13 x10e3/uL (0-0.1) Prothrombin Time 14.0 seconds (11.9-14.5) Prothromb Time International Ratio 1.03 Activated Partial Thromboplast Time 24.3 seconds (23.8-35.5) Sodium Level 137 mmol/L (136-145) Potassium Level 5.2 mmol/L (3.5-5.1) Chloride Level 102 mmol/L (98-107) Carbon Dioxide Level 23 mmol/L (22-29) Anion Gap 17.2 mmol/L (8-16) Blood Urea Nitrogen 28 mg/dL (7-26) Creatinine 1.15 mg/dL (0.57-1.11) Estimat Glomerular Filtration Rate 48 ML/MIN (60-) BUN/Creatinine Ratio 24 (6-25) Glucose Level 489 mg/dL (74-118) Calcium Level 9.2 mg/dL (8.4-10.2) Total Bilirubin 0.3 mg/dL (0.2-1.2) Aspartate Amino Transf (AST/SGOT) 10 IU/L (5-34) Alanine Aminotransferase (ALT/SGPT) 17 IU/L (0-55) Alkaline Phosphatase 125 IU/L (40-150) Creatine Kinase 16 IU/L (29-168) Creatine Kinase MB 0.80 ng/mL (0-5.0) Troponin I < 0.001 ng/mL (0-0.300) Total Protein 6.6 g/dL (6.5-8.1) Albumin 3.2 g/dL (3.5-5.0) Globulin 3.4 g/dL (2.3-3.5) Albumin/Globulin Ratio 0.9 (0.8-2.0) Lipase 19 U/L (8-78) Lab results reviewed: Yes Imaging Imaging results reviewed: Yes Procedures 12 Lead ECG Interpretation ECG Interpretation : ECG: ECG 1 Terminal System Operator: Interpreted by ED physician Date: Feb 26, 2020 Time: 13:16 Rhythm: sinus rhythm Rate: normal (79) QRS axis: normal ST segments normal: Yes T waves normal: Yes Clinical Impression: normal ECG Assessment & Plan Medical Decision Making MDM CBC, CHEM, CARDIACS, ECG, T&S, CT ABD/PELVIS, STOOL FOR C DIFF - R/O STEMI/NSTEMI, GI BLEED, COLITIS, C DIFF COLITIS, BOWEL OBSTR, ISCHEMIC BOWEL Reassessment Reassessment ADMIT TO GEOVANI, CONSULT TO Waldo ZULUAGA Assessment & Plan Final Impression: (1) Lower GI bleed (2) Hyperglycemia (3) Colitis (4) COPD (chronic obstructive pulmonary disease) Depart Disposition: ADMITTED Last Vital Signs Date Time Temp Pulse Resp B/P (MAP) Pulse Ox O2 Delivery O2 Flow Rate FiO2 02/26/20 12:40 98.4 80 16 136/70 98 Room Air Home Meds Reported Medications Insulin Lispro (HUMALOG) 100 Unit/1 Ml Insuln.pen, 30 UNITS SQ TIDWM 01/21/19 Insulin Glargine (LANTUS 3ML PEN) 100 Units/1 Ml Inj, 60 UNITS SQ HS 01/21/19 Glimepiride (GLIMEPIRIDE) 2 Mg Tablet, 2 MG PO DAILY 01/16/19 Losartan Potassium (LOSARTAN POTASSIUM) 50 Mg Tablet, 50 MG PO DAILY 01/16/19 Potassium Chloride (POTASSIUM CHLORIDE) 10 Meq Tablet.er, 10 MEQ PO DAILY 01/16/19 Spironolactone (SPIRONOLACTONE) 25 Mg Tablet, 25 MG PO DAILY, TAB 06/27/18 Sertraline Hcl (SERTRALINE HCL) 100 Mg Tablet, 100 MG PO DAILY, TAB 06/27/18 Ropinirole Hcl (ROPINIROLE HCL) 1 Mg Tablet, 2 MG PO QID, #30 TAB 12/24/17 Simvastatin (SIMVASTATIN) 40 Mg Tablet, 40 MG PO 2100, #30 TAB 09/28/17 Gabapentin (GABAPENTIN) 300 Mg Capsule, 300 MG PO Q6H, #120 CAP 09/28/17 Furosemide (FUROSEMIDE) 40 Mg Tablet, 40 MG PO BID, #60 TAB 09/28/17 Metoprolol Tartrate (METOPROLOL TARTRATE) 50 Mg Tablet, 50 MG PO BID, TAB 09/28/17 Omeprazole (OMEPRAZOLE) 40 Mg Capsule.dr, 40 MG PO DAILY 09/28/17 Aspirin (ASPIR 81) 81 Mg Tablet.dr, 81 MG PO DAILY 09/28/17 Medications in the ED Sodium Chloride 500 ml @ 0 mls/hr Q0M ONCE IV ; Start 02/26/20 at 15:45; Stop 02/26/20 at 15:46; Status DC Insulin Human Regular 10 unit ONCE ONCE IV ; Start 02/26/20 at 15:45; Stop 02/26/20 at 15:46; Status DC Ciprofloxacin Lactate 200 ml @ 200 mls/hr Q12HR IV ; Start 02/26/20 at 18:30; Stop 03/04/20 at 18:29 Metronidazole/ Sodium Chloride 100 ml @ 100 mls/hr Q6H IV ; Start 02/26/20 at 17:30; Stop 03/04/20 at 17:29 Sodium Chloride 1,000 ml @ 75 mls/hr [id number] IV ; Start 02/26/20 at 17:45; Stop 02/27/20 at 07:04; Status UNV Ondansetron HCl 4 mg Q4H PRN IV NAUSEA; Start 02/26/20 at 17:45; Stop 03/27/20 at 17:44; Status UNV Insulin Human Lispro ACHS SQ ; Start 02/26/20 at 21:00; Stop 03/27/20 at 20:59; Status UNV Dextrose 50 ml PRN PRN IV BLOOD SUGAR; Start 02/26/20 at 17:45; Stop 03/27/20 at 17:44; Status UNV FLO TOLBERT MD Feb 26, 2020 17:50
--- OUTSIDE RECORDS SUMMARY | 2020-02-26 17:53 | XMS REPORT | Continuity of Care Document ---
Author Author [facility] t Organization [facility] Address [address] [place] [address] Phone Unavailable Care Team Providers Care Plastic Surgery Specialist Name Role Phone LUCILLE OLIVO MD PCP Elyse TOLBERT Attphys Unavailable Treasure JANE Attphys Unavailable RAFAELA MCADAMS Attphys Unavailable EUNICE, S ELIESER Attphys Unavailable LUCILLE OLIVO Attphys Unavailable Astrid OLIVIA Attphys Unavailable SONAM BENJAMIN Attphys Unavailable RETASoumya FOX Attphys Unavailable Astrid BADILLO Attphys Unavailable Waldo JUAN Admphys Unavailable LUCILLE OLIVO Admphys Unavailable SONAM, BENJAMIN Admphys Unavailable PATEL ORTIZ Admphys Unavailable Payers Payer Name Policy Type Policy Number Effective Date Expiration Date Mary behzad [employer] [id number] 2013 00:00:00 [facility] [employer] [id number] 2013 00:00:00 [facility] Problems Condition Name Condition Details Condition Category Status Onset Date Resolution Date Last Treatment Date Treating Clinician Comments Source Uncontrolled type 2 diabetes mellitus Diabetes type 2, uncontrol led Problem Active [facility] Hyperglycemia Hyperglycemia Problem Active [facility] Pneumonia Pneumonia Problem Active [facility] Syncope Syncope Problem Active [facility] Chronic kidney disease CKD (chronic kidney disease) Problem Active [facility] Pre-syncope Syncope, near Problem Active [facility] Poorly controlled diabetes mellitus Poorly controlled diabetes m ellitus Problem Active [facility] Bradycardia with 41-50 beats per minute Bradycardia with 41- 50 beats per minute Problem Active [facility] Congestive heart failure CHF (congestive heart failure) Problem Active [facility] Chronic obstructive pulmonary disease COPD (chronic ob structive pulmonary disease) Problem Active [facility] Volume depletion Volume depletion Problem Active [facility] Allergies, Adverse Reactions, Alerts Allergy Name Allergy Type Status Severity Reaction(s) Onset Date Inacti ve Date Treating Clinician Comments Source Penicillins DA Active SV 2020-01-06 00:00:00 [facility] Penicillins DA Active SV 2019-12-12 00:00:00 [facility] Penicillins DA Active SV 2019-12-03 00:00:00 [facility] Penicillins DA Active SV 2019-11-20 00:00:00 [facility] Penicillins DA Active SV 2019-08-20 00:00:00 [facility] Penicillins DA Active SV 2019-08-06 00:00:00 [facility] Penicillins DA Active SV 2019-05-31 00:00:00 [facility] Penicillins DA Active SV 2019-05-17 00:00:00 [facility] Penicillin Allergy to Substance Active rash 2019-01-10 00:00:00 [facility] Penicillins DA Active SV 2017-11-15 00:00:00 [facility] Medications Ordered Medication Name Filled Medication Name Start Date Stop Da te Current Medication? Ordering Clinician Indication Dosage Frequency Signature (SIG) Comments Components Source Bacitracin/Polymyxin B Sulfate (Bacitrac in-Polymyxin Ointment) 28.35 Gm Oint...g. Bacitracin/Polymyxin B Sulfate (Bacitrac in-Polymyxin Ointment) 28.35 Gm Oint...g. 2019-04-23 00:00:00 Yes Elieser Dawson Md 2 Three Times A Day [facility] Betamethasone/Clotrimazole (Clotrimazole-Betamethasone Crm) 15 Gm Cr Betamethasone/Clotrimazole (Clotrimazole-Betamethasone Crm) 15 Gm Cr 2019-04-23 00:00:00 Yes Elieser Dawson Md 2 Three Times A Day [facility] Chlorhexidine Gluconate (Hibiclens) 120 Ml Liqd Chlorh exidine Gluconate (Hibiclens) 120 Ml Liqd 2019-04-23 00:00:00 Yes Elieser Dawson Md 5 Three Times A Day [facility] Aspirin (Aspir 81) 81 Mg Tablet. Aspirin (Aspir 81) 81 Mg Tablet. Yes 81 Daily [facility] Furosemide 40 Mg Tablet Furosemide 40 Mg Tablet Yes 40 Twice A Day [facility] Gabapentin 300 Mg Capsule Gabapentin 300 Mg Capsule Yes 300 Every 6 Hours [facility] Glimepiride 2 Mg Tablet Glimepiride 2 Mg Tablet Yes 2 Daily [facility] Insulin Glargine (Lantus 3ML Pen) 100 Units/1 Ml Inj I nsulin Glargine (Lantus 3ML Pen) 100 Units/1 Ml Inj Yes 60 Bedtime [facility] Insulin Lispro (Humalog) 100 Unit/1 Ml Insuln.pen Insu mateus Lispro (Humalog) 100 Unit/1 Ml Insuln.pen Yes 30 Three Times Daily With Meals [facility] Losartan Potassium 50 Mg Tablet Losartan Potassium 50 Mg Tablet Yes 50 Daily [facility] Metoprolol Tartrate 50 Mg Tablet Metoprolol Tartrate 50 Mg Tablet Yes 50 Twice A Day [facility] Omeprazole 40 Mg Capsule.dr Omeprazole 40 Mg Capsule. Yes 40 Daily [facility] Potassium Chloride 10 Meq Tablet.er Potassium Chloride 10 Meq Tablet. er Yes 10 Daily [facility] Ropinirole Hcl 1 Mg Tablet Ropinirole Hcl 1 Mg Tablet Yes 2 Four Times Daily [facility] Sertraline Hcl 100 Mg Tablet Sertraline Hcl 100 Mg Tablet Y es 100 Daily [facility] Simvastatin 40 Mg Tablet Simvastatin 40 Mg Tablet Yes 40 Today At 9:00PM [facility] Spironolactone 25 Mg Tablet Spironolactone 25 Mg Tablet Yes 25 Daily [facility] Insulin Human Regular (Humulin R U-500*) 500 Unit/1 Ml Inj, 50 Subcutaneously Insulin Human Regular (Humulin R U-500*) 500 Unit/1 Ml Inj, 50 Subcutaneously 2019-01-21 00:00:00 No 50 Three Times A Day [facility] Albuterol Sulfate (Proair Hfa Inhaler*) 8.5 Gm Inh, 2 Inh Albuterol Sulfate (Proair Hfa Inhaler*) 8.5 Gm Inh, 2 Inh 2019-01-16 00:00:00 No 2 Four Times Daily as needed for Shortness Of Breath [facility] Fenofibrate Nanocrystallized (Fenofibrate) 145 Mg Tabl et, 145 Mg Oral Fenofibrate Nanocrystallized (Fenofibrate) 145 Mg Tablet, 145 Mg Oral 2019-01-16 00:00:00 No 145 Daily [facility] Sildenafil Citrate (Revatio) 20 Mg Tab, 20 Mg Oral Calista denafil Citrate (Revatio) 20 Mg Tab, 20 Mg Oral 2019-01-16 00:00:00 No 20 Th ree Times A Day [facility] Solifenacin Succinate (Vesicare) 5 Mg Tablet, 10 Mg Or al Solifenacin Succinate (Vesicare) 5 Mg Tablet, 10 Mg Oral 2019-01-16 00:00:00 No 10 Bedtime [facility] Benzonatate (Tessalon Perle) 100 Mg Capsule, 100 Mg Or al Benzonatate (Tessalon Perle) 100 Mg Capsule, 100 Mg Oral 2019-01-13 00:00:00 No 100 Every 12 Hours [facility] Glimepiride 2 Mg Tablet, 4 Mg Oral Glimepiride 2 Mg Tablet, 4 Mg Oral 2019-01-13 00:00:00 No 4 Twice A Day [facility] Furosemide (Lasix) 40 Mg Tablet, 40 Mg Oral Furosemide (Lasix) 40 Mg Tablet, 40 Mg Oral 2018-07-03 00:00:00 No 40 Twice A Day [facility] Paroxetine Hcl 20 Mg Tablet, 40 Mg Oral Paroxetine Hcl 20 Mg Tablet, 40 Mg Oral 2018-06-27 00:00:00 No 40 Daily [facility] Tramadol Hcl (Ultram 50MG*) 50 Mg Tab, 50 Mg Oral Tram adol Hcl (Ultram 50MG*) 50 Mg Tab, 50 Mg Oral 2018-06-27 00:00:00 No 50 Every 12 Hours [facility] Insulin Regular, Human (Humulin R) 100 Unit/1 Ml Vial, 20 Units Subcutaneously Insulin Regular, Human (Humulin R) 100 Unit/1 Ml Vial, 20 Units Subcutaneously 2017-12-28 00:00:00 No 20 Twice A Day [facility] Insulin Detemir (Levemir) 100 Unit/1 Ml Vial, Insulin Detemir (Levemir) 100 Unit/1 Ml Vial, 2017-10-31 00:00:00 [facility] Insulin Aspart (Novolog Mix 70-30 Vial) 100 Units/Ml M l, Insulin Aspart (Novolog Mix 70-30 Vial) 100 Units/Ml Ml, 2017-10-11 00:00:00 [facility] Metformin Hcl (Glucophage) 500 Mg Tablet, Metformin Hc l (Glucophage) 500 Mg Tablet, 2017-09-28 00:00:00 [facility] Metoprolol Succinate (Toprol Xl) 50 Mg Tab.er.24h, 50 Oral Metoprolol Succinate (Toprol Xl) 50 Mg Tab.er.24h, 50 Oral 2017-09-28 00:00:00 No 50 Twice A Day for Elevated Blood Pressure [facility] Procedures Procedure Date / Time Performed Performing Clinician [facility] e X-ray of chest, two views 2019-01-10 00:00:00 BOYD NICHOLS [facility] Computed tomography of brain without radiopaque contrast 201 03-04-19 00:00:00 EUNICEELIESER NOLAN S [facility] Computed tomography of cervical spine without contrast 07-11 00:00:00 EUNICE ELIESER S [facility] CT maxillofacial area wo contrast 2018-07-11 00:00:00 JEAN DAWSON [facility] X-ray of chest, single view 2018-07-01 00:00:00 BENJAMIN MASTERS [facility] X-ray of chest, two views 2018-06-27 00:00:00 TINA JANE [facility] Encounters Start Date/Time End Date/Time Encounter Type Admission Type [facility] Care Department Encounter ID Source 2019-04-27 02:46:00 2019-04-27 04:46:00 Departed Emergency Room [address] [facility] [id number] [facility] 2019-04-23 20:19:00 2019-04-23 20:58:[address] [facility] [id number] [facility] 2019-04-17 20:48:00 2019-04-17 21:35:[address] [facility] [id number] [facility] 2019-03-15 01:19:00 2019-03-15 03:30:00 Departed Emergency Room [address] [facility] [id number] [facility] 2019-02-23 23:49:00 2019-02-24 05:38:00 Departed Emergency Room [address] [facility] [id number] [facility] 2019-01-18 14:54:00 2019-01-21 16:15:00 Discharged Inpatient [address] [facility] [id number] [facility] 2019-01-11 19:31:00 2019-01-13 15:36:00 Discharged Inpatient (obs) [address] [facility] [id number] [facility] 2019-01-10 15:21:00 2019-01-10 19:19:00 Departed Emergency Room 1 [facility] [id number] [facility] 2018-07-30 16:40:00 2018-07-31 01:45:00 Departed Emergency Room 1 [facility] [id number] [facility] 2018-07-11 10:03:00 2018-07-11 14:40:00 Departed Emergency Room [address] [facility] [id number] [facility] 2018-07-01 09:28:00 2018-07-03 14:06:00 Discharged Inpatient [address] [facility] [id number] [facility] 2018-05-30 19:52:00 2018-05-30 20:30:[address] [facility] [id number] [facility] 2018-04-03 01:16:00 2018-04-03 04:19:00 Departed Emergency Room [address] [facility] [id number] [facility] 2018-02-04 11:46:00 2018-02-07 13:55:00 Discharged Inpatient (obs) [address] [facility] [id number] [facility] 2018-01-31 22:01:00 2018-02-01 02:14:00 Departed Emergency Room 1 [facility] [id number] [facility] 2017-12-24 00:08:00 2017-12-28 16:18:00 Discharged Inpatient (obs) [address] [facility] [id number] [facility] 2017-10-31 01:50:00 2017-10-31 03:18:00 Departed Emergency Room ER JACQUES JANE [facility] [id number] [facility] 2017-10-25 22:28:00 2017-10-26 00:09:[address] [facility] [id number] [facility] 2017-10-11 23:19:00 2017-10-12 04:45:00 Departed Emergency Room ER FLO TOLBERT [facility] [id number] [facility] 2017-10-11 07:38:00 2017-10-11 10:17:00 Departed Emergency Room ER JEFFREY MCDUFFIE [facility] [id number] [facility] 2017-09-25 14:18:00 2017-09-29 13:30:00 Discharged Inpatient ER JAYASHREE BADILLO [facility] [id number] [facility] 2017-08-24 13:00:00 2017-08-26 16:20:00 Discharged Inpatient (obs) ER FLO TOLBERT [facility] [id number] [facility] 2017-04-17 23:09:00 2017-04-18 03:16:[address] [facility] [id number] [facility] 2017-02-09 21:43:00 2017-02-10 02:38:[address] [facility] [id number] [facility] 2016-12-29 19:19:00 2016-12-30 01:00:[address] [facility] [id number] [facility] Results Test Description Test Time Test Comments Results Result Comments Source CT ABDOMEN/PELVIS WO 2020-02-26 16:53:00 [facility] [address] [address] Patient Name: KALYANI TALAVERA MR #: [id number] : 1955 Age/Sex: 64/F Req #: [id number] Adm Physician: Ordered by: FLO TOLBERT MD Report #: [id number] Location: ER Room/Bed: Procedure: [id number] CT/CT ABDOMEN/PELVIS WO Exam Date: 02/26/20 Exam Time: 1612 REPORT STATUS: Signed EXAM: CT Abdomen and Pelvis WITHOUT intravenous contrast INDICATION: Rectal bleeding COMPARISON: CT abdomen pelvis of 02/05/2020 TECHNIQUE: Abdomen and pelvis were scanned utilizing a multidetector helical scanner from the lung base to the pubic sym physis without administration of IV contrast. Coronal and sagittal reformations were obtained. IV CONTRAST: None ORAL CONTRAST: Water COMPLICATIONS: None RADIATION DOSE: Total DLP: 981 mGy*cm Dose modulation, iterative reconstruction, and/or weight based adjustment of the mA/kV was utilized to reduce the radiation dose to as low as reasonably achievable. FINDINGS: LOWER THORAX: Mild bibasilar dependent subsegmental atelectasis. HEPATOBILIARY: No focal liver lesion. Unremarkable gallbladder. SPLEEN: Splenomegaly to 16 cm. PANCREAS: No focal masses or ductal dilatation. ADRENALS: No adrenal nodules. KIDNEYS/URETERS: No hydronephrosis, stones, or solid mass lesions. PELVIC ORGANS/BLADDER: Unremarkable. PERITONEUM / RETROPERITONEUM: No free air or fluid. LYMPH NODES: No lymphadenopathy. VESSELS: Moderate atherosclerotic calcifications of the nonaneurysmal abdominal aorta and major branches. GI TRACT: Mild descending colon and proximal sigmoid colon wall thickening with associated pericolonic fat stranding. No associated free air or focal fluid collection. BONES AND SOFT TISSUES: No acute osseous injury. No suspicious lytic or blastic lesions. IMPRESSION: Mild ascending colon and proximal sigmoid colon wall thickening with associated pericolonic fat stranding can be seen in the setting of colitis. No free air or focal fluid collection. Signed by: Cedric Wynne MD on 02/26/2020 4:59 PM Dictated By: CEDRIC WYNNE MD 58 T ranscribed By: JIM on 02/26/201658 COPY TO: FLO TOLBERT MD CHEST SINGLE (PORTABLE) 2020-02-26 14:35:[address] [address] Patient Name: KALYANI TALAVERA MR #: [id number] : 1955 Age/Sex: 64/F Req #: [id number] Adm Physician: Ordered by: FLO TOLBERT MD Report #: [id number] Location: ER Room/Bed: Procedure: [id number] DX/CHEST SINGLE (PORTABLE) Exam Date: 02/26/20 Exam Time: 1400 REPORT STATUS: Signed EXAMINATION: CHEST SINGLE (PORTABLE) INDICATION: Rectal bleeding COMPARISON: Chest radiograph 02/08/2020 FINDINGS: LINES/TUBES:EKG leads overlie the chest. LUNGS:The lungs are moderately inflated. No focal consolidation. Mild bibasilar subsegmental atelectasis. PLEURA:No pleural effusion or pneumothorax. MEDIASTINUM:The cardiomediastinal silhouette appears normal in size and shape. BONES/SOFT TISSUES:No acute osseous injury. ABDOMEN:No free air under the diaphragm. IMPRESSION: No focal pneumonia or pulmonary edema. Mild bibasilar subsegmental atelectasis. Signed by: Cedric Wynne MD on 02/26/2020 2:36 PM Dictated By: CEDRIC WYNNE MD 35 Transcribed By: JIM on 02/26/201435 COPY TO: FLO TOLBERT MD CHEST SINGLE (PORTABLE) 2020-02-08 06:52:00 [address] [address] Patient Name: KALYANI TALAVERA MR #: [id number] : 1955 Age/Sex: 64/F Req #: [id number] Adm Physician: Ordered by: JACQUES JANE MD Report #: [id number] Location: ER Room/Bed: Procedure: [id number] DX/CHEST SINGLE (PORTABLE) Exam Date: 02/08/20 Exam [...] JANE MD CT CHEST W 2020-02-05 06:23:00 [facility] [address] [address] Patient Name: KALYANI TALAVERA MR #: [id number] : 1955 Age/Sex: 64/F Req #: [id number] Adm Physician: Ordered by: RAFAELA MCADAMS DO Report #: [id number] Location: ER Room/Bed: Procedure: [id number] CT/CT CHEST W Exam Date: 02/05/20 Exam [...] 6:39 AM Dictated By: YASH JOSEPH MD Transcribed By: JIM on 02/05/20 0639 COPY TO: RAFAELA MCADAMS DO CT ABDOMEN/PELVIS W 2020-02-05 06:23:00 [address] [place] [address] Patient Name: KALYANI TALAVERA MR #: [id number] : 1955 Age/Sex: 64/F Req #: [id number] Adm Physician: Ordered by: RAFAELA MCADAMS DO Report #: [id number] Location: ER Room/Bed: Procedure: [id number] CT/CT ABDOMEN/PELVIS W Exam Date: 02/05/20 Exam [...] 386 mg/dL 74-106 H Performed by certified box printing machine operator at [facility] [id number] 11:50:00* Test Item Value Reference Range Interpretation Comments GLUBED (test code = GLUBED) 247 mg/dL 74-106 H Performed by certified box printing machine operator at [facility] [id number] 08:17:00* Test Item Value Reference Range Interpretation Comments GLUBED (test code = GLUBED) 226 mg/dL 74-106 H Performed by certified box printing machine operator at [facility] BASIC METABOLIC [id number] 06:17:00* Test Item Value Reference Range Interpretation [...] CA) 8.8 mg/dL 8.5-10.1 N BASIC METABOLIC [id number] 05:54:00* Test Item Value Reference Range Interpretation [...] CALCIUM (test code = CA) mg/dL 8.5-10.1 [id number] 20:08:00* Test Item Value Reference Range Interpretation Comments GLUBED (test code = GLUBED) 161 mg/dL 74-106 H Performed by certified box printing machine operator at [facility] [id number] 16:30:00* Test Item Value Reference Range Interpretation Comments GLUBED (test code = GLUBED) 120 mg/dL 74-106 H Performed by certified box printing machine operator at [facility] [id number] 11:27:00* Test Item Value Reference Range Interpretation Comments GLUBED (test code = GLUBED) 164 mg/dL 74-106 H Performed by certified box printing machine operator at [facility] - XR CHEST 1 [id number] 09:27:00 FAX: Jasen Frias MD [phone] [place]: St: ADM FAX: Rigo Mccormick MD [phone] FAX: Benjamin Francis MD [phone] Name: KALYANI TALAVERA [facility] : 1955 Age/S: 64/F [address] Unit #: [id number] Loc: V.[address] [place] [address] Phys: Rigo Alexander MD Acct: [id number] Dis Date: Status: ADM IN ONE #: [phone] Exam Date: 01/27/2020 1040 FAX #: [phone] Reason: chf EXAMS: CPT CODE: [id number] XR CHEST 1 V 58425 HISTORY: CHF. COMPARISON: January 24, 2020. Location: [facility]. Suboptimal inspiration. Crowding of bronchovascular markings. Dependent changes. Vague groundglass opacities is nonspecific finding. Cardiomegaly. IMPRESSION: No infiltrates or congestion. Va raquel groundglass opacities. These are unchanged. Electronical ly Signed by Gregory Chowdhury on 01/27/2020 at 0943 Rep orted and signed by: Solomon Chowdhury M.D. CC: Shane Coronado MD; Rigo Alexander MD; Benjamin Masters Technologist: Ana Christianson RT(R); Donna Childers RT(R) Trnscrd Date/Time/By: 01/27/2020 (0927) : By: aniyah [email or web address] Orig Print D/T: S: 01/27/2020 (1041) P AGE 2 Signed Report GLUBED 2020-01-27 07:58:00* Test Item Value Reference Range Interpretation Comments GLUBED (test code = GLUBED) 127 mg/dL 74-106 H Performed by certified box printing machine operator at [facility] [id number] 07:40:00* Test Item Value Reference Range Interpretation Comments GLUBED (test code = GLUBED) 116 mg/dL 74-106 H Performed by certified box printing machine operator at [facility] [id number] 22:23:00* Test Item Value Reference Range Interpretation Comments GLUBED (test code = GLUBED) 259 mg/dL 74-106 H Performed by certified box printing machine operator at [facility] [id number] 17:10:00* Test Item Value Reference Range Interpretation Comments GLUBED (test code = GLUBED) 219 mg/dL 74-106 H Performed by certified box printing machine operator at [facility] [id number] 11:45:00* Test Item Value Reference Range Interpretation Comments GLUBED (test code = GLUBED) 265 mg/dL 74-106 H Performed by certified box printing machine operator at [facility] [id number] 08:52:00* Test Item Value Reference Range Interpretation Comments GLUBED (test code = GLUBED) 317 mg/dL 74-106 H Performed by certified box printing machine operator at [facility] [id number] 23:49:00* Test Item Value Reference Range Interpretation Comments GLUBED (test code = GLUBED) 327 mg/dL 74-106 H Performed by certified box printing machine operator at [facility] [id number] 22:15:00* Test Item Value Reference Range Interpretation Comments GLUBED (test code = GLUBED) 339 mg/dL 74-106 H Performed by certified box printing machine operator at [facility] [id number] 19:59:00* Test Item Value Reference Range Interpretation Comments GLUBED (test code = GLUBED) 497 mg/dL 74-106 H Performed by certified box printing machine operator at [facility] [id number] 18:29:00* Test Item Value Reference Range Interpretation Comments GLUBED (test code = GLUBED) > 500 mg/dL 74-106 HH [facility] certified box printing [facility]~ [id number] 16:00:00* Test Item Value Reference Range Interpretation Comments GLUBED (test code = GLUBED) 377 mg/dL 74-106 H Performed by certified box printing machine operator at [facility] [id number] 12:09:00* Test Item Value Reference Range Interpretation Comments GLUBED (test code = GLUBED) 441 mg/dL 74-106 H [facility] certified box printing [facility] BASIC METABOLIC [id number] 08:19:00* Test Item Value Reference Range Interpretation [...] CA) 8.7 mg/dL 8.5-10.1 N BASIC METABOLIC [id number] 08:11:00* Test Item Value Reference Range Interpretation [...] CALCIUM (test code = CA) mg/dL 8.5-10.1 [id number] 08:00:00* Test Item Value Reference Range Interpretation Comments GLUBED (test code = GLUBED) 493 mg/dL 74-106 H Per[facility] by certified box printing machine [facility] [id number] 02:13:00* Test Item Value Reference Range Interpretation Comments GLUBED (test code = GLUBED) > 500 mg/dL 74-106 HH Per[facility] certified box printing machine [facility] [id number] 02:13:00* Test Item Value Reference Range Interpretation Comments GLUBED (test code = GLUBED) > 500 mg/dL 74-106 HH [facility] [id number] 21:24:00* Test Item Value Reference Range Interpretation Comments GLUBED (test code = GLUBED) 497 mg/dL 74-106 H Performed by certified box printing machine operator at [facility] [id number] 21:24:00* Test Item Value Reference Range Interpretation Comments GLUBED (test code = GLUBED) > 500 mg/dL 74-106 HH [facility] by certified box printing machine [facility]~ BASIC METABOLIC [id number] 17:04:00* Test Item Value Reference Range Interpretation [...] CA) 8.6 mg/dL 8.5-10.1 N BASIC METABOLIC [id number] 16:49:00* Test Item Value Reference Range Interpretation [...] CALCIUM (test code = CA) mg/dL 8.5-10.1 [id number] 12:24:00* Test Item Value Reference Range Interpretation Comments GLUBED (test code = GLUBED) 344 mg/dL 74-106 H Performed by certified box printing machine operator at [facility] CBC W/AUTO [id number] 08:32:00* Test Item Value Reference Range Interpretation [...] = MDIFF) NO, ONLY SCAN NEEDED DIFFERENTIAL [id number] 08:32:00* Test Item Value Reference Range Interpretation Comments STAIN ACCEPTABILITY (test code = STN ACCEPTABLE) STAIN ACCEPTABLE POLYCHROMASIA (test code = POLC) 1+ HYPOCHROMIA (test code = HYPO) 1+ POIKILOCYTOSIS (test code = POIK) 1+ ANISOCYTOSIS (test code = ANISO) 1+ PLATELET ESTIMATE (test code = PLTEST) ADEQUATE PLATELET MORPHOLOGY (test code = PLTMORPH) NORMAL URINALYSIS [id number] 07:09:00* Test Item Value Reference Range Interpretation [...] per HPF FEW Urine Source? Clean CatchURINALYSIS [id number] 07:05:00* Test Item Value Reference Range Interpretation [...] HPF NONE Urine Source? Clean CatchB-TYPE NATRIURETIC [id number] 06:41:00* Test Item Value Reference Range Interpretation Comments B-TYPE NATRIURETIC PEPTIDE (test code = BNP) 14.6 pgram/mL 0-100 N CBC W/AUTO [id number] 05:36:00* Test Item Value Reference Range Interpretation [...] = MDIFF) NO, ONLY SCAN NEEDED DIFFERENTIAL [id number] 05:36:00* Test Item Value Reference Range Interpretation Comments STAIN ACCEPTABILITY (test code = STN ACCEPTABLE) MORPHOLOGY COMMENT (test code = MOC) PLATELET ESTIMATE (test code = PLTEST) PLATELET MORPHOLOGY (test code = PLTMORPH) CBC W/AUTO [id number] 05:35:00* Test Item Value Reference Range Interpretation [...] = MDIFF) NO, ONLY SCAN NEEDED DIFFERENTIAL [id number] 05:35:00* Test Item Value Reference Range Interpretation Comments STAIN ACCEPTABILITY (test code = STN ACCEPTABLE) CABOT RINGS (test code = CAB) MORPHOLOGY COMMENT (test code = MOC) PLATELET ESTIMATE (test code = PLTEST) PLATELET MORPHOLOGY (test code = PLTMORPH) CBC W/AUTO [id number] 05:35:00* Test Item Value Reference Range Interpretation [...] = MDIFF) NO, ONLY SCAN NEEDED DIFFERENTIAL [id number] 05:35:00* Test Item Value Reference Range Interpretation Comments STAIN ACCEPTABILITY (test code = STN ACCEPTABLE) MORPHOLOGY COMMENT (test code = MOC) PLATELET ESTIMATE (test code = PLTEST) PLATELET MORPHOLOGY (test code = PLTMORPH) CBC W/AUTO [id number] 05:35:00* Test Item Value Reference Range Interpretation [...] = MDIFF) NO, ONLY SCAN NEEDED DIFFERENTIAL [id number] 05:35:00* Test Item Value Reference Range Interpretation Comments STAIN ACCEPTABILITY (test code = STN ACCEPTABLE) CABOT RINGS (test code = CAB) MORPHOLOGY COMMENT (test code = MOC) PLATELET ESTIMATE (test code = PLTEST) PLATELET MORPHOLOGY (test code = PLTMORPH) BASIC METABOLIC [id number] 05:31:00* Test Item Value Reference Range Interpretation [...] CA) 8.5 mg/dL 8.5-10.1 N HEPATIC FUNCTION [id number] 05:31:00* Test Item Value Reference Range Interpretation [...] reference range due to change in reagent. [id number] 05:31:00* Test Item Value Reference Range Interpretation Comments MAGNESIUM (test code = MAG) 2.1 mg/dL 1.8-2.4 N [id number] 05:31:00* Test Item Value Reference Range Interpretation Comments TROPONIN-I (test code = TROPI) <0.015 ng/mL 0-0.045 N COVID 19 INHOUSE [id number] 04:50:00* Test Item Value Reference Range Interpretation Comments COVID 19 INHOUSE AG (test code = [id number]) NEGATIVE Is patient requiring admission or transfer? YIndication for rapid COVID-19 testi ng: Mod Clinical Suspicion- XR CHEST 1 V 2020-01-24 04:35:00 FAX: Benjamin Francis MD [phone] [place]: B St: REG FAX: Anastacio Burgess MD Name: KALYANI TALAVERA [facility] : 1955 Age/S: 64/F [address] Unit #: [id number] Loc: [place], [place] [address] Phys: Anastacio Burgess MD Acct: [id number] Dis Date: Status: REG ER PHONE #: [phone] Exam Date: 01/24/2020424 FAX #: [phone] Reason: SHORTNESS OF BREATH EXAMS: CPT CODE: [id number] XR CHEST 1 V 82077 EXAM: - XR CHEST 1 V HISTORY: [...] Trnscrd Da te/Time/By: 01/24/2020 (0435) : By: [email or web address] [facility] Print D/T: S: 01/23 (0438) PAGE 1 Signed Report [id number] 12:58:00* Test Item Value Reference Range Interpretation Comments GLUBED (test code = GLUBED) 54 mg/dL 74-106 L Performed by certified box printing machine operator at [facility] BASIC METABOLIC [id number] 09:17:00* Test Item Value Reference Range Interpretation [...] CA) 8.8 mg/dL 8.5-10.1 N BASIC METABOLIC [id number] 09:06:00* Test Item Value Reference Range Interpretation [...] CALCIUM (test code = CA) mg/dL 8.5-10.1 [id number] 08:29:00* Test Item Value Reference Range Interpretation Comments GLUBED (test code = GLUBED) 160 mg/dL 74-106 H Performed by certified box printing machine operator at [facility] [id number] 20:47:00* Test Item Value Reference Range Interpretation Comments GLUBED (test code = GLUBED) 210 mg/dL 74-106 H Performed by certified box printing machine operator at [facility] [id number] 18:37:00* Test Item Value Reference Range Interpretation Comments GLUBED (test code = GLUBED) 91 mg/dL 74-106 N Performed by certified box printing machine operator at [facility] BASIC METABOLIC [id number] 17:55:00* Test Item Value Reference Range Interpretation [...] CA) 8.5 mg/dL 8.5-10.1 N BASIC METABOLIC [id number] 17:50:00* Test Item Value Reference Range Interpretation [...] CA) mg/dL 8.5-10.1 - XR CHEST 1 [id number] 17:38:00 FAX: Benjamin Francis MD [phone] [place]: St: ADM Name: KALYANI CATES [facility] : [birth year] Age/S: 64/F [address] Unit #: [id number] Loc: [address] [place] [address] Phys: Benjamin Masters MD Acct: [id number] Dis Date: Status: ADM IN PHONE #: [phone] Exam Date: 01/13/2020 1531 FAX #: [phone] Reason: CHF EXAMS: CPT CODE: [id number] XR CHEST 1 V 10982 EXAM: Chest x-ray, one view; INFORMATION: Shortness of breath, CHF; IMPRESSION: Moderate improvement compared with the recent study from January 11, 2020: The heart is decreased in size; mild cardiomegaly remains. Lung bases are better demarcated indicating resolution of interstitial edema; mild left heart failure remains. Location code: [facility] at 1738 Reported and signed by: Jc Bravo M.D. CC: Benjamin Masters Technologist: RT Karlene(Megan) Trnscranjana Date/Time/By: 01/13/2020 (1738) : By: Dannielle Orig Print D/T: S: 01/13/2020 (6746) PAGE 1 Signed Report [id number] 17:22:00* Test Item Value Reference Range Interpretation Comments GLUBED (test code = GLUBED) 84 mg/dL 74-106 N Performed by certified box printing machine operator at [facility] [id number] 16:46:00* Test Item Value Reference Range Interpretation Comments GLUBED (test code = GLUBED) 65 mg/dL 74-106 L Performed by certified box printing machine operator at [facility] BRONCH LAVAGE FLD CELL CT/[id number] 15:32:00* Test Item Value Reference Range Interpretation [...] [id number] Carlyle Markham BRONCHIAL [id number] 14:21:00 RUN DATE: 01/13/20 [place] - Lab PAGE 1 RUN TIME: 1421 Specimen Inqui ry RUN USER: INTERFACE PATIENT: KALYANI TALAVERA ACCT #: [id number] LOC: [place] U #: [id number] AGE/SX: 64/F ROOM: [facility] RE01/07/20[facility] DR: Benjamin Masters MD : [birth year] BED: A DIS: STATUS: ADM IN TLOC: SPEC #: [id number] RECD: 01/10/20 STATUS: SHREYA REQ #: [id number] MARILEE: 01/10/20 DR: Benjamin Masters MD ENTERED: 01/10/20 SP TYPE: BRONCH [place] OTHR DR: Ivett Valderrama i, MD, Kuldip Kumar MD Nassif, George M MDORDERED: GROSS COPIES TO: Ivett Christianson MD [address] [place] [address] Harry Gutierrez MD [address] [place], [place] [id number] Rigo Alexander MD [address] [facility] [address] [place] [address] Benjamin Murphy MD [address] [place] [address] PROCED URES: GROSS (01/13/20-1308) TISSUES: BRONCH LAVAGE - 60ML CLOUDY FLUID CLINICAL HISTORY COLLECTION DATE: 01/10/20 INTERSTITIAL LUNG DI SEASE FINAL DIAGNOSIS Left lingular bronchoalveolar lavage for cytol ogy and CD4/CD8 ratio: PULMONARY MACROPHAGES, NEUTROPHILS, AND A FEW COLU MNAR BRONCHIAL LINING CELLS NEGATIVE FOR MALIGNANCY CD4- CD8 RATIO 1.0: 1 (SEE INCLUDED ADX FLOW CYTOMETRY REPORT [id number]) CONTINUED ON NEXT PAGE RUN DATE: 01/13/20 [place] [facility] PAGE 2 RUN TIME: 1421 Specimen Inquiry RUN USER: INTERFACE -- SPEC #: [id number] PATIENT: KALYANI TALAVERA #[id number] (Continued) FINAL DIAGNOSIS (Continued) BRITTNI/corby D [address], [address] FLOW CYTOMETRY A Flow cytometry repo rt is received from [employer] Case No:[id number] the int erpretation is as follows: Clinical [...] developed and its performance characteristics determined by [employer]. It has not been cleared or approved by the U.S. Food and Drug Administrat ion.The FDA has determined that such clearance is not necessary. This test is us ed for clinicalpurposes. It should not be regarded as investigational or for res earch. This laboratory iscertified under the Clinical Laboratory Improvement [place] ndments of 1987 (CLIA-88) as CONTINUED ON NEXT PAGE RUN DATE: 01/13/20 [facility] [place] PAGE 3 RUN TIME: 1421 Speci men Inquiry RUN USER: INTERFACE SPEC #: [id number] PATIENT: ARIE HernandezKALYANI GUARDADO #[id number] (Continued) FLOW CYTOMETRY (Continued) qualified to perform high complexity clinical te sting. The above report was reviewed and interpretive comments are provided. The comments areapproved for the medical records of the identified patient with my electronic signature. Electronic SignatureLachelle Jaylon, Rubber Block Layer CPT C ode(s): 23461,17693(x21),28571 ICD Code(s): R89.7 The Technical and Professional components were performed at [facility], [address] [place] [address], [facility] [address], [place] [address] . MACROSCOPIC The specimen is designated as "left lingula BAL". It consists of 60 mL of cloudy fluid for processing and evaluation. Material will be submitted for CD4 CD8 ratio test. A cell block is prepared. GROSS PERFORMED AT [facility] [address] [place] [address] (P) MICROSCOPIC All of the stains, including any controls pe rformed, stain appropriately. MICROSCOPIC PERFORMED AT [facility] [address] [place] [address] (p)[phone] PERFORMING SITE Diagnosis performed at: [facility] [address] [place], [place] [address] CONTINUED ON NEXT PAGE RUN DATE: 01/13/20 [facility] [place] PAGE 4 RUN TIME: 1421 Specimen Inquiry RUN USER: Celestine MORENO S PEC #: [id number] PATIENT: KALYANI TALAVERA #[id number] (Continued) Signed SIGNATURE ON FILE Petty Lowe MD 01/13/20 1421 END OF REPORT GLUBED 2020-01-13 12:45:00* Test Item Value Reference Range Interpretation Comments GLUBED (test code = GLUBED) 105 mg/dL 74-106 N Performed by certified box printing machine operator at [facility] [id number] 08:07:00* Test Item Value Reference Range Interpretation Comments GLUBED (test code = GLUBED) 92 mg/dL 74-106 N Performed by certified box printing machine operator at [facility] [id number] 19:54:00* Test Item Value Reference Range Interpretation Comments GLUBED (test code = GLUBED) 149 mg/dL 74-106 H Performed by certified box printing machine operator at [facility] [id number] 17:05:00* Test Item Value Reference Range Interpretation Comments GLUBED (test code = GLUBED) 127 mg/dL 74-106 H Performed by certified box printing machine operator at [facility] [id number] 12:02:00* Test Item Value Reference Range Interpretation Comments GLUBED (test code = GLUBED) 209 mg/dL 74-106 H Performed by certified box printing machine operator at [facility] [id number] 08:45:00* Test Item Value Reference Range Interpretation Comments GLUBED (test code = GLUBED) 175 mg/dL 74-106 H Performed by certified box printing machine operator at [facility] B-TYPE NATRIURETIC [id number] 07:19:00* Test Item Value Reference Range Interpretation Comments B-TYPE NATRIURETIC PEPTIDE (test code = BNP) 28.74 pgram/mL 0-100 N COMPREHENSIVE METABOLIC [id number] 07:07:00* Test Item Value Reference Range Interpretation [...] due to change in reagent. COMPREHENSIVE METABOLIC [id number] 06:56:00* Test Item Value Reference Range Interpretation [...] code = ALKP) IUnit/L 45-117 CBC W/AUTO [id number] 06:51:00* Test Item Value Reference Range Interpretation [...] code = NRBC#) 0.00 K/mm3 0.0-0.1 N [id number] 20:46:00* Test Item Value Reference Range Interpretation Comments GLUBED (test code = GLUBED) 257 mg/dL 74-106 H Performed by certified box printing machine operator at [facility] - XR CHEST 1 [id number] 18:25:00 FAX: Alfa Moscoso MD [phone] [place]: St: [facility] FAX: Benjamin Francis MD [phone] Name: KALYANI TALAVERA [facility] : 1955 Age/S: 64/F [address] [facility] Unit #: [id number] Loc: V.[address] [place] [address] Phys: Alfa Cassidy MD Acct: [id number] Dis Date: Status: ADM IN PHONE #: [phone] Exam Date: 01/11/2020 1823 FAX #: [phone] Reason: CHF EXAMS: CPT CODE: [id number] XR CHEST 1 V 06677 REASON FOR EXAM: CHF Exam Order Date: 01/11/2020 12:00 AM Ordering M.DMayi: Alfa Cassidy MD PROCEDURE: - XR CHEST [...] lung volumes with findings of CHF. Location: [facility] at 1825 Reported and signed by: Dago Goodson MD CC: Alfa Cassidy MD; Benjamin Masters Technologist: SCOOBY PARSONS, RT(R); TAWANNA HURTADO RT(R) Trnscrd Date/Time/By: 01/11/2020 (1824) : By: [email or web address] Orig Print D/T: S: 01/11/2020 (1827) PAGE 1 Signed Report [id number] 16:50:00* Test Item Value Reference Range Interpretation Comments GLUBED (test code = GLUBED) 262 mg/dL 74-106 H Performed by certified box printing machine operator at [facility] [id number] 12:17:00* Test Item Value Reference Range Interpretation Comments GLUBED (test code = GLUBED) 348 mg/dL 74-106 H Performed by certified box printing machine operator at [facility] [id number] 08:51:00* Test Item Value Reference Range Interpretation Comments GLUBED (test code = GLUBED) 361 mg/dL 74-106 H Performed by certified box printing machine operator at [facility] BRONCH LAVAGE FLD CELL [id number] 22:17:00* Test Item Value Reference Range Interpretation [...] REVIEWED BY (test code = REVIEW) PATHOLOGIST [id number] 20:37:00* Test Item Value Reference Range Interpretation Comments GLUBED (test code = GLUBED) 334 mg/dL 74-106 H Performed by certified box printing machine operator at [facility] [id number] 17:59:00* Test Item Value Reference Range Interpretation Comments GLUBED (test code = GLUBED) 310 mg/dL 74-106 H Performed by certified box printing machine operator at [facility] [id number] 13:51:00* Test Item Value Reference Range Interpretation Comments GLUBED (test code = GLUBED) 260 mg/dL 74-106 H Performed by certified box printing machine operator at [facility] BASIC METABOLIC [id number] 10:17:00* Test Item Value Reference Range Interpretation [...] CA) 8.6 mg/dL 8.5-10.1 N BASIC METABOLIC [id number] 10:13:00* Test Item Value Reference Range Interpretation [...] CALCIUM (test code = CA) mg/dL 8.5-10.1 [id number] 08:31:00* Test Item Value Reference Range Interpretation Comments GLUBED (test code = GLUBED) 191 mg/dL 74-106 H Performed by certified box printing machine operator at [facility] CBC W/AUTO [id number] 07:02:00* Test Item Value Reference Range Interpretation [...] = MDIFF) NO, ONLY SCAN NEEDED DIFFERENTIAL [id number] 07:02:00* Test Item Value Reference Range Interpretation Comments STAIN ACCEPTABILITY (test code = STN ACCEPTABLE) STAIN ACCEPTABLE POLYCHROMASIA (test code = POLC) 1+ ANISOCYTOSIS (test code = ANISO) 2+ MICROCYTOSIS (test code = MICR) 2+ MORPHOLOGY COMMENT (test code = MOC) TEST NOT PERFORMED PLATELET ESTIMATE (test code = PLTEST) ADEQUATE PLATELET MORPHOLOGY (test code = PLTMORPH) NORMAL COMPREHENSIVE METABOLIC [id number] 05:34:00* Test Item Value Reference Range Interpretation [...] due to change in reagent. CBC W/AUTO [id number] 05:30:00* Test Item Value Reference Range Interpretation [...] = MDIFF) NO, ONLY SCAN NEEDED DIFFERENTIAL [id number] 05:30:00* Test Item Value Reference Range Interpretation Comments STAIN ACCEPTABILITY (test code = STN ACCEPTABLE) CABOT RINGS (test code = CAB) MORPHOLOGY COMMENT (test code = MOC) PLATELET ESTIMATE (test code = PLTEST) PLATELET MORPHOLOGY (test code = PLTMORPH) CBC W/AUTO [id number] 05:30:00* Test Item Value Reference Range Interpretation [...] = MDIFF) NO, ONLY SCAN NEEDED DIFFERENTIAL [id number] 05:30:00* Test Item Value Reference Range Interpretation Comments STAIN ACCEPTABILITY (test code = STN ACCEPTABLE) CABOT RINGS (test code = CAB) MORPHOLOGY COMMENT (test code = MOC) PLATELET ESTIMATE (test code = PLTEST) PLATELET MORPHOLOGY (test code = PLTMORPH) CBC W/AUTO [id number] 05:30:00* Test Item Value Reference Range Interpretation [...] = MDIFF) NO, ONLY SCAN NEEDED DIFFERENTIAL [id number] 05:30:00* Test Item Value Reference Range Interpretation Comments STAIN ACCEPTABILITY (test code = STN ACCEPTABLE) MORPHOLOGY COMMENT (test code = MOC) PLATELET ESTIMATE (test code = PLTEST) PLATELET MORPHOLOGY (test code = PLTMORPH) CBC W/AUTO [id number] 05:30:00* Test Item Value Reference Range Interpretation [...] = MDIFF) NO, ONLY SCAN NEEDED DIFFERENTIAL [id number] 05:30:00* Test Item Value Reference Range Interpretation Comments STAIN ACCEPTABILITY (test code = STN ACCEPTABLE) CABOT RINGS (test code = CAB) MORPHOLOGY COMMENT (test code = MOC) PLATELET ESTIMATE (test code = PLTEST) PLATELET MORPHOLOGY (test code = PLTMORPH) COMPREHENSIVE METABOLIC [id number] 05:24:00* Test Item Value Reference Range Interpretation [...] TOTAL (test code = ALKP) IUnit/L 45-117 [id number] 20:32:00* Test Item Value Reference Range Interpretation Comments GLUBED (test code = GLUBED) 108 mg/dL 74-106 H Performed by certified box printing machine operator at [facility] [id number] 16:44:00* Test Item Value Reference Range Interpretation Comments GLUBED (test code = GLUBED) 125 mg/dL 74-106 H Performed by certified box printing machine operator at [facility] Coronavirus 2019 nCoV [id number] 16:38:00* Test Item Value Reference Range Interpretation Comments Coronavirus 2019 nCoV Bedside (test code = COVNONPUIBED) Negative [id number] 12:17:00* Test Item Value Reference Range Interpretation Comments GLUBED (test code = GLUBED) 171 mg/dL 74-106 H Performed by certified box printing machine operator at [facility] [id number] 08:34:00* Test Item Value Reference Range Interpretation Comments GLUBED (test code = GLUBED) 341 mg/dL 74-106 H Performed by certified box printing machine operator at [facility] - CT CHEST W/[id number] 06:53:00 Name: KALYANI TALAVERA [facility] : 1955 Age/S: 64 / F [address] Unit #: [id number] Loc: [place] [address] Phys: Rigo Alexander MD Acct: [id number] Dis Date: Status: ADM IN PHONE #: [phone] Exam Date: 01/08/20206 FAX #: [phone] Reason: interstitial lung disease, pulmonary HTN EXAMS: CPT CODE: [id number] CT CHEST W/CONTRAST [address]3511 HISTORY: Interstitial lung disease and pulmonary hypertension. [...] (0656) YANETH VARGAS 1 Signed Report PROTHROMBIN [id number] 05:24:00* Test Item Value Reference Range Interpretation [...] (2.5-3.5) IS PATIENT ON ANTICOAGULANTS? NTHROMBOPLASTIN TIME [id number] 05:24:00* Test Item Value Reference Range Interpretation Comments THROMBOPLASTIN TIME PARTIAL (test code = PTT) 27.5 seconds 23.0-37. 0 N IS PATIENT ON ANTICOAGULANTS? [id number] 20:06:00* Test Item Value Reference Range Interpretation Comments GLUBED (test code = GLUBED) 162 mg/dL 74-106 H Performed by certified box printing machine operator at [facility] [id number] 17:04:00* Test Item Value Reference Range Interpretation Comments GLUBED (test code = GLUBED) 135 mg/dL 74-106 H Performed by certified box printing machine operator at [facility] [id number] 12:10:00* Test Item Value Reference Range Interpretation Comments GLUBED (test code = GLUBED) 375 mg/dL 74-106 H Performed by certified box printing machine operator at [facility] [id number] 08:11:00* Test Item Value Reference Range Interpretation Comments GLUBED (test code = GLUBED) 259 mg/dL 74-106 H Performed by certified box printing machine operator at [facility] CBC W/AUTO [id number] 05:20:00* Test Item Value Reference Range Interpretation [...] = MDIFF) NO, ONLY SCAN NEEDED DIFFERENTIAL [id number] 05:20:00* Test Item Value Reference Range Interpretation [...] (test code = PLTMORPH) NORMAL B-TYPE NATRIURETIC [id number] 05:03:00* Test Item Value Reference Range Interpretation Comments B-TYPE NATRIURETIC PEPTIDE (test code = BNP) 24.60 pgram/mL 0-100 N COMPREHENSIVE METABOLIC [id number] 04:59:00* Test Item Value Reference Range Interpretation [...] due to change in reagent. COMPREHENSIVE METABOLIC [id number] 04:50:00* Test Item Value Reference Range Interpretation [...] code = ALKP) IUnit/L 45-117 CBC W/AUTO [id number] 04:45:00* Test Item Value Reference Range Interpretation [...] = MDIFF) NO, ONLY SCAN NEEDED DIFFERENTIAL [id number] 04:45:00* Test Item Value Reference Range Interpretation Comments STAIN ACCEPTABILITY (test code = STN ACCEPTABLE) CABOT RINGS (test code = CAB) MORPHOLOGY COMMENT (test code = MOC) PLATELET ESTIMATE (test code = PLTEST) PLATELET MORPHOLOGY (test code = PLTMORPH) CBC W/AUTO [id number] 04:45:00* Test Item Value Reference Range Interpretation [...] = MDIFF) NO, ONLY SCAN NEEDED DIFFERENTIAL [id number] 04:45:00* Test Item Value Reference Range Interpretation Comments STAIN ACCEPTABILITY (test code = STN ACCEPTABLE) CABOT RINGS (test code = CAB) MORPHOLOGY COMMENT (test code = MOC) PLATELET ESTIMATE (test code = PLTEST) PLATELET MORPHOLOGY (test code = PLTMORPH) CBC W/AUTO [id number] 04:45:00* Test Item Value Reference Range Interpretation [...] = MDIFF) NO, ONLY SCAN NEEDED DIFFERENTIAL [id number] 04:45:00* Test Item Value Reference Range Interpretation Comments STAIN ACCEPTABILITY (test code = STN ACCEPTABLE) MORPHOLOGY COMMENT (test code = MOC) PLATELET ESTIMATE (test code = PLTEST) PLATELET MORPHOLOGY (test code = PLTMORPH) CBC W/AUTO [id number] 04:45:00* Test Item Value Reference Range Interpretation [...] = MDIFF) NO, ONLY SCAN NEEDED DIFFERENTIAL [id number] 04:45:00* Test Item Value Reference Range Interpretation Comments STAIN ACCEPTABILITY (test code = STN ACCEPTABLE) CABOT RINGS (test code = CAB) MORPHOLOGY COMMENT (test code = MOC) PLATELET ESTIMATE (test code = PLTEST) PLATELET MORPHOLOGY (test code = PLTMORPH) [id number] 23:24:00* Test Item Value Reference Range Interpretation Comments GLUBED (test code = GLUBED) 292 mg/dL 74-106 H Performed by certified box printing machine operator at [facility] [id number] 19:46:00* Test Item Value Reference Range Interpretation Comments GLUBED (test code = GLUBED) 306 mg/dL 74-106 H Performed by certified box printing machine operator at [facility] - XR CHEST 1 [id number] 19:39:00 FAX: Rigo Mccormick MD [phone] [place]: St: ADM FAX: Alfa Moscoso MD [phone] FAX: Benjamin Francis MD [phone] Name: KALYANI TALAVERA [facility] : 1955 Age/S: 64/F [address] [facility] Unit #: [id number] Loc: V.3042 [place] [address] Phys: Rigo Alexander MD Acct: [id number] Dis Date: Status: ADM IN ONE #: [phone] Exam Date: 01/07/20201834 FAX #: [phone] Reason: chf EXAMS: CPT CODE: [id number] XR CHEST 1 V 20590 EXAM: Chest x- ray, one view; INFORMATION: Shortness of breath, CHF; IMPRESSION: 1. Compared with yesterday's study, the left lung is sli ghtly better aerated; 2. No further significant changes; persist ent cardiomegaly and interstitial edema consistent with left heart failu re. Location code: [facility] Electronically Sig rainer by Gregory Bravo on 01/07/2020 at 1939 Reported and signed by: Jc Bravo M.D. CC: Rigo Alexander MD; Alfa Cassidy MD; Benjamin Masters Technologist: Sagar Ruiz RT(R Trnscrd Date/Time/By: 01/07/2020 (1938) : By: LeanneGRW Orig Print D/T: S: 0 01/07/2020 (1941) PAGE 1 Signed Re port [id number] 16:14:00* Test Item Value Reference Range Interpretation Comments GLUBED (test code = GLUBED) 67 mg/dL 74-106 L Performed by certified box printing machine operator at [facility] [id number] 11:11:00* Test Item Value Reference Range Interpretation Comments GLUBED (test code = GLUBED) 320 mg/dL 74-106 H Performed by certified box printing machine operator at [facility] [id number] 07:56:00* Test Item Value Reference Range Interpretation Comments GLUBED (test code = GLUBED) 426 mg/dL 74-106 H Performed by certified box printing machine operator at [facility] [id number] 20:36:00* Test Item Value Reference Range Interpretation Comments GLUBED (test code = GLUBED) > 500 mg/dL 74-106 HH [facility] certified box printing machine [facility] - US [facility] W/[id number] 20:29:00 Name: KALYANI TALAVERA [facility] : 1955 Age/S: 64 / F [address] Unit #: [id number] Loc: [place] [address] Phys: Rigo Alexander MD Acct: [id number] Dis Date: Status: ADM IN PHONE #: [phone] Exam Date: 01/06/2020 1950 FAX #: [phone] Reason: pleural effusions EXAMS: CPT CODE: [id number] CHST W/MEDIASTINUM 45619 EXAM: Ultrasound of the chest; INFORMATION: Shortness of breath, pleural effusions? IMPRESSION: No sonographic evidence of pleural effusions. Location code: [facility] at 2028 Reported and signed by: Jc Bravo M.D. CC: Rigo Alexander MD; Benjamin Masters Technologist: Tamy Lanier RDMS Trnscb Date/Time: 01/06/2020 (2028) tAISHA Orig Print D/T: S: 01/06/2020 (2031) Probe: PAGE 1 Signed Report [id number] 18:13:00* Test Item Value Reference Range Interpretation Comments GLUBED (test code = GLUBED) > 500 mg/dL 74-106 HH [facility] certified box [facility] machine [facility] [id number] 16:16:00* Test Item Value Reference Range Interpretation Comments GLUBED (test code = GLUBED) > 500 mg/dL 74-106 HH [facility] certified box printing machine [facility] [id number] 13:43:00* Test Item Value Reference Range Interpretation Comments TROPONIN-I (test code = TROPI) <0.015 ng/mL 0-0.045 N COMMENTS TO STAPLING MACHINE OPERATOR: COLLECT 3 HOURS AFTER PREVIOUS SAMPLEB-TYPE NATRIURETIC [id number] 10:13:00* Test Item Value Reference Range Interpretation Comments B-TYPE NATRIURETIC PEPTIDE (test code = BNP) 44.58 pgram/mL 0-100 N BASIC METABOLIC [id number] 06:56:00* Test Item Value Reference Range Interpretation [...] code = CA) 8.8 mg/dL 8.5-10.1 N [id number] 06:56:00* Test Item Value Reference Range Interpretation Comments TROPONIN-I (test code = TROPI) <0.015 ng/mL 0-0.045 N BASIC METABOLIC [id number] 06:43:00* Test Item Value Reference Range Interpretation [...] CALCIUM (test code = CA) mg/dL 8.5-10.1 [id number] 06:43:00* Test Item Value Reference Range Interpretation Comments TROPONIN-I (test code = TROPI) ng/mL 0-0.045 CBC W/O [id number] 06:22:00* Test Item Value Reference Range Interpretation [...] fL 6.7-11.0 N - XR CHEST 1 [id number] 06:03:00 FAX: Colton Khalil MD [phone] [place]: St: [facility] FAX: Benjamin Francis MD [phone] Name: KALYANI TALAVERA [facility] : 1955 Age/S: 64/F [address] [facility] Unit #: [id number] Loc: [place] [address] Phys: Colton Khalil MD Acct: [id number] Dis Date: Status: REG ER PHONE #: [phone] Exam Date: 01/06/2020 05 FAX #: [phone] Reason: Shortness of Breath EXAMS: CPT CODE: [id number] XR CHEST 1 V 99658 HISTORY: Shortness of breath Location: C3 COMPARISON:12/23/2019 [...] S: 01/06/2020 (605) PAGE 1 Signed Report [id number] 07:49:00* Test Item Value Reference Range Interpretation Comments GLUBED (test code = GLUBED) 237 mg/dL 74-106 H Performed by certified box printing machine operator at [facility] BASIC METABOLIC [id number] 05:57:00* Test Item Value Reference Range Interpretation [...] CA) 8.5 mg/dL 8.5-10.1 N BASIC METABOLIC [id number] 05:49:00* Test Item Value Reference Range Interpretation [...] CALCIUM (test code = CA) mg/dL 8.5-10.1 [id number] 20:28:00* Test Item Value Reference Range Interpretation Comments GLUBED (test code = GLUBED) 211 mg/dL 74-106 H Performed by certified box printing machine operator at [facility] [id number] 17:59:00* Test Item Value Reference Range Interpretation Comments GLUBED (test code = GLUBED) 254 mg/dL 74-106 H Performed by certified box printing machine operator at [facility] [id number] 17:59:00* Test Item Value Reference Range Interpretation Comments GLUBED (test code = GLUBED) 259 mg/dL 74-106 H Performed by certified box printing machine operator at [facility] BASIC METABOLIC [id number] 11:13:00* Test Item Value Reference Range Interpretation [...] CA) 8.2 mg/dL 8.5-10.1 L BASIC METABOLIC [id number] 11:08:00* Test Item Value Reference Range Interpretation [...] CALCIUM (test code = CA) mg/dL 8.5-10.1 [id number] 08:42:00* Test Item Value Reference Range Interpretation Comments GLUBED (test code = GLUBED) 195 mg/dL 74-106 H Performed by certified box printing machine operator at [facility] [id number] 20:18:00* Test Item Value Reference Range Interpretation Comments GLUBED (test code = GLUBED) 238 mg/dL 74-106 H Performed by certified box printing machine operator at [facility] [id number] 16:32:00* Test Item Value Reference Range Interpretation Comments GLUBED (test code = GLUBED) 149 mg/dL 74-106 H Performed by certified box printing machine operator at [facility] [id number] 12:15:00* Test Item Value Reference Range Interpretation Comments GLUBED (test code = GLUBED) 189 mg/dL 74-106 H Performed by certified box printing machine operator at [facility] BASIC METABOLIC [id number] 09:00:00* Test Item Value Reference Range Interpretation [...] code = CA) 8.4 mg/dL 8.5-10.1 L [id number] 09:00:00* Test Item Value Reference Range Interpretation Comments MAGNESIUM (test code = MAG) 1.9 mg/dL 1.8-2.4 N [id number] 07:52:00* Test Item Value Reference Range Interpretation Comments GLUBED (test code = GLUBED) 251 mg/dL 74-106 H Performed by certified box printing machine operator at [facility] [id number] 22:38:00* Test Item Value Reference Range Interpretation Comments GLUBED (test code = GLUBED) 157 mg/dL 74-106 H Performed by certified box printing machine operator at [facility] [id number] 21:25:00* Test Item Value Reference Range Interpretation Comments GLUBED (test code = GLUBED) 154 mg/dL 74-106 H Performed by certified box printing machine operator at [facility] [id number] 16:46:00* Test Item Value Reference Range Interpretation Comments GLUBED (test code = GLUBED) 156 mg/dL 74-106 H Performed by certified box printing machine operator at [facility] [id number] 10:44:00* Test Item Value Reference Range Interpretation Comments GLUBED (test code = GLUBED) 240 mg/dL 74-106 H Performed by certified box printing machine operator at [facility] [id number] 07:55:00* Test Item Value Reference Range Interpretation Comments GLUBED (test code = GLUBED) 178 mg/dL 74-106 H Performed by certified box printing machine operator at [facility] BASIC METABOLIC [id number] 06:00:00* Test Item Value Reference Range Interpretation [...] code = CA) 8.4 mg/dL 8.5-10.1 L [id number] 06:00:00* Test Item Value Reference Range Interpretation Comments MAGNESIUM (test code = MAG) 2.0 mg/dL 1.8-2.4 N [id number] 21:31:00* Test Item Value Reference Range Interpretation Comments GLUBED (test code = GLUBED) 461 mg/dL 74-106 H Performed by certified box printing machine operator at [facility] [id number] 15:49:00* Test Item Value Reference Range Interpretation Comments GLUBED (test code = GLUBED) 400 mg/dL 74-106 H Performed by certified box printing machine operator at [facility] [id number] 12:49:00* Test Item Value Reference Range Interpretation Comments GLUBED (test code = GLUBED) 339 mg/dL 74-106 H Performed by certified box printing machine operator at [facility] [id number] 07:41:00* Test Item Value Reference Range Interpretation Comments GLUBED (test code = GLUBED) 328 mg/dL 74-106 H Performed by certified box printing machine operator at [facility] BASIC METABOLIC [id number] 05:42:00* Test Item Value Reference Range Interpretation [...] CA) 8.5 mg/dL 8.5-10.1 N BASIC METABOLIC [id number] 05:33:00* Test Item Value Reference Range Interpretation [...] CALCIUM (test code = CA) mg/dL 8.5-10.1 [id number] 03:29:00* Test Item Value Reference Range Interpretation Comments GLUBED (test code = GLUBED) 221 mg/dL 74-106 H Performed by certified box printing machine operator at [facility] [id number] 20:20:00* Test Item Value Reference Range Interpretation Comments GLUBED (test code = GLUBED) 406 mg/dL 74-106 H Performed by certified box printing machine operator at [facility] [id number] 18:02:00* Test Item Value Reference Range Interpretation Comments TROPONIN-I (test code = TROPI) <0.015 ng/mL 0-0.045 N COMMENTS TO STAPLING MACHINE OPERATOR: COLLECT 3 HOURS AFTER PREVIOUS [id number] 17:46:00* Test Item Value Reference Range Interpretation Comments MAGNESIUM (test code = MAG) 2.0 mg/dL 1.8-2.4 N [id number] 17:35:00* Test Item Value Reference Range Interpretation Comments GLUBED (test code = GLUBED) 363 mg/dL 74-106 H Performed by certified box printing machine operator at [facility] [id number] 13:25:00* Test Item Value Reference Range Interpretation Comments TROPONIN-I (test code = TROPI) <0.015 ng/mL 0-0.045 N COMMENTS TO STAPLING MACHINE OPERATOR: COLLECT 3 HOURS AFTER PREVIOUS SAMPLEURINALYSIS [id number] 10:05:00* Test Item Value Reference Range Interpretation [...] #/HPF NONE A Urine Source? Clean CatchURINALYSIS [id number] 10:05:00* Test Item Value Reference Range Interpretation [...] #/HPF NONE A Urine Source? Clean CatchCoronavirus 2019 nCoV [id number] 07:24:00* Test Item Value Reference Range Interpretation Comments Coronavirus 2019 nCoV Bedside (test code = [id number]) Negative Is patient requiring admission or transfer? [...] = MDIFF) NO, ONLY SCAN NEEDED DIFFERENTIAL [id number] 07:22:00* Test Item Value Reference Range Interpretation Comments STAIN ACCEPTABILITY (test code = STN ACCEPTABLE) STAIN ACCEPTABLE POLYCHROMASIA (test code = POLC) 1+ POIKILOCYTOSIS (test code = POIK) 1+ ANISOCYTOSIS (test code = ANISO) 1+ MICROCYTOSIS (test code = MICR) 1+ PLATELET ESTIMATE (test code = PLTEST) DECREASED PLATELET MORPHOLOGY (test code = PLTMORPH) NORMAL B-TYPE NATRIURETIC [id number] 07:19:00* Test Item Value Reference Range Interpretation Comments B-TYPE NATRIURETIC PEPTIDE (test code = BNP) 38.62 pgram/mL 0-100 N BASIC METABOLIC [id number] 06:41:00* Test Item Value Reference Range Interpretation [...] CA) 8.7 mg/dL 8.5-10.1 N HEPATIC FUNCTION [id number] 06:41:00* Test Item Value Reference Range Interpretation [...] reference range due to change in reagent. [id number] 06:41:00* Test Item Value Reference Range Interpretation Comments LIPASE (test code = LIP) 91 U/L 73.0-393.0 N [id number] 06:41:00* Test Item Value Reference Range Interpretation Comments TROPONIN-I (test code = TROPI) <0.015 ng/mL 0-0.045 N PROTHROMBIN [id number] 06:31:00* Test Item Value Reference Range Interpretation [...] (2.5-3.5) IS PATIENT ON ANTICOAGULANTS? NTHROMBOPLASTIN TIME [id number] 06:31:00* Test Item Value Reference Range Interpretation Comments THROMBOPLASTIN TIME PARTIAL (test code = PTT) 30.8 seconds 23.0-37. 0 N IS PATIENT ON ANTICOAGULANTS? NCBC W/AUTO [id number] 06:30:00* Test Item Value Reference Range Interpretation [...] = MDIFF) NO, ONLY SCAN NEEDED DIFFERENTIAL [id number] 06:30:00* Test Item Value Reference Range Interpretation Comments STAIN ACCEPTABILITY (test code = STN ACCEPTABLE) CABOT RINGS (test code = CAB) MORPHOLOGY COMMENT (test code = MOC) PLATELET ESTIMATE (test code = PLTEST) PLATELET MORPHOLOGY (test code = PLTMORPH) BASIC METABOLIC [id number] 06:30:00* Test Item Value Reference Range Interpretation [...] code = CA) mg/dL 8.5-10.1 HEPATIC FUNCTION [id number] 06:30:00* Test Item Value Reference Range Interpretation [...] TOTAL (test code = ALKP) IUnit/L 45-117 [id number] 06:30:00* Test Item Value Reference Range Interpretation Comments LIPASE (test code = LIP) U/L 73.0-393.0 [id number] 06:30:00* Test Item Value Reference Range Interpretation Comments TROPONIN-I (test code = TROPI) ng/mL 0-0.045 CBC W/AUTO [id number] 06:30:00* Test Item Value Reference Range Interpretation [...] = MDIFF) NO, ONLY SCAN NEEDED DIFFERENTIAL [id number] 06:30:00* Test Item Value Reference Range Interpretation Comments STAIN ACCEPTABILITY (test code = STN ACCEPTABLE) CABOT RINGS (test code = CAB) MORPHOLOGY COMMENT (test code = MOC) PLATELET ESTIMATE (test code = PLTEST) PLATELET MORPHOLOGY (test code = PLTMORPH) CBC W/AUTO [id number] 06:30:00* Test Item Value Reference Range Interpretation [...] = MDIFF) NO, ONLY SCAN NEEDED DIFFERENTIAL [id number] 06:30:00* Test Item Value Reference Range Interpretation Comments STAIN ACCEPTABILITY (test code = STN ACCEPTABLE) MORPHOLOGY COMMENT (test code = MOC) PLATELET ESTIMATE (test code = PLTEST) PLATELET MORPHOLOGY (test code = PLTMORPH) CBC W/AUTO [id number] 06:30:00* Test Item Value Reference Range Interpretation [...] = MDIFF) NO, ONLY SCAN NEEDED DIFFERENTIAL [id number] 06:30:00* Test Item Value Reference Range Interpretation Comments STAIN ACCEPTABILITY (test code = STN ACCEPTABLE) CABOT RINGS (test code = CAB) MORPHOLOGY COMMENT (test code = MOC) PLATELET ESTIMATE (test code = PLTEST) PLATELET MORPHOLOGY (test code = PLTMORPH) - XR CHEST 1 [id number] 05:45:00 FAX: Benjamin Francis MD [phone] [place]: St: REG FAX: Leonora Norton [phone] Name: KALYANI TALAVERA [facility] : 1955 Age/S: 64/F [address] [facility] Unit #: [id number] Loc: [place] [address] Phys: Leonora Goins MD Acct: [id number] Dis Date: Status: REG ER PHONE #: [phone] Exam Date: 12/23/2019 05 FAX #: [phone] Reason: SHORTNESS OF BREATH EXAMS: CPT CODE: [id number] XR CHEST 1 V 50237 AFTER HOURS SERVICE ON: 12/23/2019 5:44 AM [...] and signed by: Cr Hilton M.D. CC: Mabel Masters Jessica D MD Technologist: SUSAN HAMMONDS JR Trnscrd Date/Time/By: 12/23/2019 (0545) : By: [email or web address] Orig Print D/T: S: 12/23/2019 (7077) PAGE 1 Signed Report B-TYPE NATRIURETIC [id number] 05:44:00* Test Item Value Reference Range Interpretation Comments B-TYPE NATRIURETIC PEPTIDE (test code = BNP) 38.94 pgram/mL 0-100 N Coronavirus 2019 nCoV [id number] 04:56:00* Test Item Value Reference Range Interpretation Comments Coronavirus 2019 nCoV Bedside (test code = [id number]) Negative Is patient requiring admission or transfer? YIndication for rapid COVID-19 testi ng: Mod Clinical SuspicionBASIC METABOLIC [id number] 04:48:00* Test Item Value Reference Range Interpretation [...] code = CA) 8.8 mg/dL 8.5-10.1 N [id number] 04:48:00* Test Item Value Reference Range Interpretation Comments TROPONIN-I (test code = TROPI) <0.015 ng/mL 0-0.045 N CBC W/O [id number] 04:39:00* Test Item Value Reference Range Interpretation [...] MPV) 10.6 fL 6.7-11.0 N BASIC METABOLIC [id number] 04:37:00* Test Item Value Reference Range Interpretation [...] CALCIUM (test code = CA) mg/dL 8.5-10.1 [id number] 04:37:00* Test Item Value Reference Range Interpretation Comments TROPONIN-I (test code = TROPI) ng/mL 0-0.045 - XR CHEST 1 [id number] 03:58:00 FAX: Benjamin Francis MD [phone] [place]: St: REG FAX: Vince Jones DO Name: KALYANI TALAVERA [facility] : 1955 Age/S: 64/F [address] [facility] Unit #: [id number] Loc: [place] [address] Phys: Vince Jones DO Acct: [id number] Dis Date: Status: REG ER PHONE #: [phone] Exam Date: 12/16/2019 0345 FAX #: [phone] Reason: Shortness of Breath EXAMS: CPT CODE: [id number] XR CHEST 1 V 80284 EXAM: - XR CHEST 1 V HISTORY: [...] Jones DO Technologist: RT JOSÉ MIGUEL(Megan) Trn scrd Date/Time/By: 12/16/2019 (0358) : By: [email or web address] Orig Print D/T: S : 12/16/2019 (0408) PAGE 1 Signed Report B-TYPE NATRIURETIC [id number] 03:51:00* Test Item Value Reference Range Interpretation Comments B-TYPE NATRIURETIC PEPTIDE (test code = BNP) 93.94 pgram/mL 0-100 N BASIC METABOLIC [id number] 03:42:00* Test Item Value Reference Range Interpretation [...] code = CA) 8.9 mg/dL 8.5-10.1 N [id number] 03:42:00* Test Item Value Reference Range Interpretation Comments TROPONIN-I (test code = TROPI) <0.015 ng/mL 0-0.045 N - XR CHEST 1 [id number] 03:13:00 FAX: Jani Roque [phone] [place]: [facility]: [facility] FAX: Benjamin Francis MD [phone] Name: KALYANI TALAVERA [facility] : 1955 Age/S: 64/F [address] [facility] Unit #: [id number] Loc: [place] [address] Phys: Jani Roque MD Acct: [id number] Dis Date: Status: REG ER PHONE #: [phone] Exam Date: 12/12/2019232 FAX #: [phone] Reason: Shortness of Breath EXAMS: CPT CODE: [id number] XR CHEST 1 V 05208 - XR CHEST 1 V, 12/12/2019 2:26 AM Reason For Examination: Shortness of Breath Comparison: December 03, 2019 Location: R16 Findings Low lung volumes limit evaluation. LUNGS: Likely moderate edema, underlying consolidation difficult to exclude PLEURA: Small to moderate bilateral effusions CARDIOMEDIASTINAL SILHOUETTE Unremarkable Enlarged IMPRESSION: Findings compatible with fluid overload, underlying consolidation difficult to exclude at 312 Reported and signed by: Tati Brunner M.D. CC: Jani Roque MD; Benjamin Masters Technologist: RT EDUARDO Trnscrd Date/Time/By: 12/12/2019 (312) : By: [email or web address] Orig Print D/T: S: 12/12/2019 (315) PAGE 1 Signed Report PROTHROMBIN [id number] 03:11:00* Test Item Value Reference Range Interpretation [...] (2.5-3.5) IS PATIENT ON ANTICOAGULANTS? NTHROMBOPLASTIN TIME [id number] 03:11:00* Test Item Value Reference Range Interpretation Comments THROMBOPLASTIN TIME PARTIAL (test code = PTT) 33.6 seconds 23.0-37. 0 N IS PATIENT ON ANTICOAGULANTS? NBASIC METABOLIC [id number] 03:05:00* Test Item Value Reference Range Interpretation [...] code = CA) 8.9 mg/dL 8.5-10.1 N [id number] 03:05:00* Test Item Value Reference Range Interpretation Comments TROPONIN-I (test code = TROPI) ng/mL 0-0.045 CBC W/O [id number] 02:54:00* Test Item Value Reference Range Interpretation [...] code = MPV) 10.0 fL 6.7-11.0 N [id number] 15:43:00* Test Item Value Reference Range Interpretation Comments GLUBED (test code = GLUBED) 157 mg/dL 74-106 H Performed by certified box printing machine operator at [facility] BASIC METABOLIC [id number] 14:27:00* Test Item Value Reference Range Interpretation [...] CA) 8.5 mg/dL 8.5-10.1 N BASIC METABOLIC [id number] 14:23:00* Test Item Value Reference Range Interpretation [...] code = CA) 8.5 mg/dL 8.5-10.1 N [id number] 11:31:00* Test Item Value Reference Range Interpretation Comments GLUBED (test code = GLUBED) 92 mg/dL 74-106 N Performed by certified box printing machine operator at [facility] [id number] 07:50:00* Test Item Value Reference Range Interpretation Comments GLUBED (test code = GLUBED) 172 mg/dL 74-106 H Performed by certified box printing machine operator at [facility] [id number] 00:32:00* Test Item Value Reference Range Interpretation Comments GLUBED (test code = GLUBED) 71 mg/dL 74-106 L Performed by certified box printing machine operator at [facility] [id number] 21:13:00* Test Item Value Reference Range Interpretation Comments GLUBED (test code = GLUBED) 110 mg/dL 74-106 H Performed by certified box printing machine operator at [facility] [id number] 16:45:00* Test Item Value Reference Range Interpretation Comments GLUBED (test code = GLUBED) 192 mg/dL 74-106 H [facility] certified box printing machine [facility] BASIC METABOLIC [id number] 15:12:00* Test Item Value Reference Range Interpretation [...] code = CA) 8.3 mg/dL 8.5-10.1 L [id number] 15:12:00* Test Item Value Reference Range Interpretation Comments MAGNESIUM (test code = MAG) 2.2 mg/dL 1.8-2.4 N BASIC METABOLIC [id number] 15:07:00* Test Item Value Reference Range Interpretation [...] CALCIUM (test code = CA) mg/dL 8.5-10.1 [id number] 15:07:00* Test Item Value Reference Range Interpretation Comments MAGNESIUM (test code = MAG) mg/dL 1.8-2.4 [id number] 13:08:00* Test Item Value Reference Range Interpretation Comments GLUBED (test code = GLUBED) 107 mg/dL 74-106 H [facility] certified box printing machine [facility] [id number] 08:18:00* Test Item Value Reference Range Interpretation Comments GLUBED (test code = GLUBED) 184 mg/dL 74-106 H Per[facility] by certified box printing machine operator [facility] [id number] 06:54:00* Test Item Value Reference Range Interpretation Comments GLUBED (test code = GLUBED) 141 mg/dL 74-106 H Performed by certified box printing machine operator [facility] [facility] [id number] 20:59:00* Test Item Value Reference Range Interpretation Comments GLUBED (test code = GLUBED) 100 mg/dL 74-106 N Performed by certified box printing machine operator at [facility] [id number] 17:20:00* Test Item Value Reference Range Interpretation Comments GLUBED (test code = GLUBED) 152 mg/dL 74-106 H [facility] certified box printing machine [facility] [id number] 16:08:00* Test Item Value Reference Range Interpretation Comments GLUBED (test code = GLUBED) 223 mg/dL 74-106 H Performed by certified box printing machine operator at [facility] [id number] 12:35:00* Test Item Value Reference Range Interpretation Comments GLUBED (test code = GLUBED) 262 mg/dL 74-106 H Performed by certified box printing machine operator at [facility] [id number] 08:13:00* Test Item Value Reference Range Interpretation Comments GLUBED (test code = GLUBED) 86 mg/dL 74-106 N Performed by certified box printing machine operator at [facility] [id number] 23:34:00* Test Item Value Reference Range Interpretation Comments GLUBED (test code = GLUBED) 294 mg/dL 74-106 H Performed by certified box printing machine operator at [facility] [id number] 20:47:00* Test Item Value Reference Range Interpretation Comments GLUBED (test code = GLUBED) 262 mg/dL 74-106 H Performed by certified box printing machine operator at [facility] [id number] 16:20:00* Test Item Value Reference Range Interpretation Comments GLUBED (test code = GLUBED) 62 mg/dL 74-106 L Performed by certified box printing machine operator at [facility] [id number] 12:23:00* Test Item Value Reference Range Interpretation Comments GLUBED (test code = GLUBED) 203 mg/dL 74-106 H Performed by certified box printing machine operator at [facility] [id number] 08:24:00* Test Item Value Reference Range Interpretation Comments GLUBED (test code = GLUBED) 316 mg/dL 74-106 H Performed by certified box printing machine operator at [facility] [id number] 20:06:00* Test Item Value Reference Range Interpretation Comments GLUBED (test code = GLUBED) 416 mg/dL 74-106 H Performed by certified box printing machine operator at [facility] [id number] 15:45:00* Test Item Value Reference Range Interpretation Comments GLUBED (test code = GLUBED) 298 mg/dL 74-106 H [facility] certified box printing machine [facility] [id number] 12:18:00* Test Item Value Reference Range Interpretation Comments TROPONIN-I (test code = TROPI) <0.015 ng/mL 0-0.045 N COMMENTS TO STAPLING MACHINE OPERATOR: COLLECT 3 HOURS AFTER PREVIOUS [id number] 07:57:00* Test Item Value Reference Range Interpretation Comments TROPONIN-I (test code = TROPI) <0.015 ng/mL 0-0.045 N COMMENTS TO STAPLING MACHINE OPERATOR: COLLECT 3 HOURS AFTER PREVIOUS SAMPLEB-TYPE NATRIURETIC [id number] 01:27:00* Test Item Value Reference Range Interpretation Comments B-TYPE NATRIURETIC PEPTIDE (test code = BNP) 88.96 pgram/mL 0-100 N BASIC METABOLIC [id number] 00:47:00* Test Item Value Reference Range Interpretation [...] code = CA) 8.8 mg/dL 8.5-10.1 N [id number] 00:47:00* Test Item Value Reference Range Interpretation Comments TROPONIN-I (test code = TROPI) <0.015 ng/mL 0-0.045 N CBC W/O [id number] 00:42:00* Test Item Value Reference Range Interpretation [...] MPV) 10.8 fL 6.7-11.0 N BASIC METABOLIC [id number] 00:36:00* Test Item Value Reference Range Interpretation [...] code = CA) 8.8 mg/dL 8.5-10.1 N [id number] 00:36:00* Test Item Value Reference Range Interpretation Comments TROPONIN-I (test code = TROPI) ng/mL 0-0.045 - XR CHEST 1 [id number] 00:02:00 FAX: Russ Malcolm MD [phone] [place]: St: [facility] FAX: Y Benjamin Masters MD [phone] Name: KALYANI TALAVERA [facility] : 1955 Age/S: 64/F [address] [facility] Unit #: [id number] Loc: [place] [address] Phys: Russ Malcolm MD Acct: [id number] Dis Date: Status: REG ER PHONE #: [phone] Exam Date: 12/03/2019 2352 FAX #: [phone] Reason: Shortness of Breath EXAMS: CPT CODE: [id number] XR CHEST 1 V 08330 Exam: AP chest Location: H 12 History: [...] S: 12/04/2019 (0005) PAGE 1 Signed Report [id number] 12:24:00* Test Item Value Reference Range Interpretation Comments GLUBED (test code = GLUBED) 151 mg/dL 74-106 H [facility] certified box printing machine [facility] [id number] 08:12:00* Test Item Value Reference Range Interpretation Comments GLUBED (test code = GLUBED) 169 mg/dL 74-106 H Per[facility] by certified box printing machine operator [facility] BASIC METABOLIC [id number] 06:37:00* Test Item Value Reference Range Interpretation [...] code = CA) 8.9 mg/dL 8.5-10.1 N [id number] 20:42:00* Test Item Value Reference Range Interpretation Comments GLUBED (test code = GLUBED) 223 mg/dL 74-106 H Performed by certified box printing machine operator at [facility] [id number] 16:09:00* Test Item Value Reference Range Interpretation Comments GLUBED (test code = GLUBED) 205 mg/dL 74-106 H Performed by certified box printing machine operator at [facility] [id number] 11:35:00* Test Item Value Reference Range Interpretation Comments GLUBED (test code = GLUBED) 338 mg/dL 74-106 H Performed by certified box printing machine operator at [facility] [id number] 08:04:00* Test Item Value Reference Range Interpretation Comments GLUBED (test code = GLUBED) 240 mg/dL 74-106 H Performed by certified box printing machine operator at [facility] BASIC METABOLIC [id number] 07:18:00* Test Item Value Reference Range Interpretation [...] CA) 8.6 mg/dL 8.5-10.1 N BASIC METABOLIC [id number] 07:14:00* Test Item Value Reference Range Interpretation [...] CALCIUM (test code = CA) mg/dL 8.5-10.1 [id number] 20:28:00* Test Item Value Reference Range Interpretation Comments GLUBED (test code = GLUBED) 343 mg/dL 74-106 H Performed by certified box printing machine operator at [facility] [id number] 16:32:00* Test Item Value Reference Range Interpretation Comments GLUBED (test code = GLUBED) 279 mg/dL 74-106 H Performed by certified box printing machine operator at [facility] [id number] 11:49:00* Test Item Value Reference Range Interpretation Comments GLUBED (test code = GLUBED) 290 mg/dL 74-106 H Performed by certified box printing machine operator at [facility] URINALYSIS [id number] 10:01:00* Test Item Value Reference Range Interpretation [...] FEW #/HPF NONE A Urine Source? [facility]INAL[facility] [id number] 10:00:00* Test Item Value Reference Range Interpretation [...] = BACU) per HPF NONE Urine Source? [id number] 08:37:00* Test Item Value Reference Range Interpretation Comments GLUBED (test code = GLUBED) 260 mg/dL 74-106 H Performed by certified box printing machine operator at [facility] [id number] 05:57:00* Test Item Value Reference Range Interpretation Comments GLUBED (test code = GLUBED) 253 mg/dL 74-106 H Performed by certified box printing machine operator at [facility] BASIC METABOLIC [id number] 05:52:00* Test Item Value Reference Range Interpretation [...] CA) 8.8 mg/dL 8.5-10.1 N BASIC METABOLIC [id number] 05:49:00* Test Item Value Reference Range Interpretation [...] CALCIUM (test code = CA) mg/dL 8.5-10.1 [id number] 23:00:00* Test Item Value Reference Range Interpretation Comments GLUBED (test code = GLUBED) 108 mg/dL 74-106 H Performed by certified box printing machine operator at [facility] [id number] 22:22:00* Test Item Value Reference Range Interpretation Comments GLUBED (test code = GLUBED) 111 mg/dL 74-106 H Performed by certified box printing machine operator at [facility] URINALYSIS [id number] 20:09:00* Test Item Value Reference Range Interpretation [...] = BACU) FEW #/HPF NONE Urine Source? [id number] 16:18:00* Test Item Value Reference Range Interpretation Comments GLUBED (test code = GLUBED) 196 mg/dL 74-106 H Performed by certified box printing machine operator at [facility] [id number] 12:03:00* Test Item Value Reference Range Interpretation Comments GLUBED (test code = GLUBED) 190 mg/dL 74-106 H Performed by certified box printing machine operator at [facility] [id number] 08:22:00* Test Item Value Reference Range Interpretation Comments GLUBED (test code = GLUBED) 264 mg/dL 74-106 H Per[facility] certified box printing machine [facility] BASIC METABOLIC [id number] 07:56:00* Test Item Value Reference Range Interpretation [...] CA) 8.6 mg/dL 8.5-10.1 N BASIC METABOLIC [id number] 05:39:00* Test Item Value Reference Range Interpretation [...] code = CA) mg/dL 8.5-10.1 CBC W/AUTO [id number] 05:19:00* Test Item Value Reference Range Interpretation [...] = MDIFF) NO, ONLY SCAN NEEDED DIFFERENTIAL [id number] 05:19:00* Test Item Value Reference Range Interpretation Comments STAIN ACCEPTABILITY (test code = STN ACCEPTABLE) STAIN ACCEPTABLE ANISOCYTOSIS (test code = ANISO) 2+ MICROCYTOSIS (test code = MICR) 2+ MORPHOLOGY COMMENT (test code = MOC) TEST NOT PERFORMED PLATELET ESTIMATE (test code = PLTEST) DECREASED PLATELET MORPHOLOGY (test code = PLTMORPH) NORMAL CBC W/AUTO [id number] 05:06:00* Test Item Value Reference Range Interpretation [...] = MDIFF) NO, ONLY SCAN NEEDED DIFFERENTIAL [id number] 05:06:00* Test Item Value Reference Range Interpretation Comments STAIN ACCEPTABILITY (test code = STN ACCEPTABLE) MORPHOLOGY COMMENT (test code = MOC) PLATELET ESTIMATE (test code = PLTEST) PLATELET MORPHOLOGY (test code = PLTMORPH) CBC W/AUTO [id number] 05:00:00* Test Item Value Reference Range Interpretation [...] = MDIFF) NO, ONLY SCAN NEEDED DIFFERENTIAL [id number] 05:00:00* Test Item Value Reference Range Interpretation Comments STAIN ACCEPTABILITY (test code = STN ACCEPTABLE) CABOT RINGS (test code = CAB) MORPHOLOGY COMMENT (test code = MOC) PLATELET ESTIMATE (test code = PLTEST) PLATELET MORPHOLOGY (test code = PLTMORPH) CBC W/AUTO [id number] 05:00:00* Test Item Value Reference Range Interpretation [...] = MDIFF) NO, ONLY SCAN NEEDED DIFFERENTIAL [id number] 05:00:00* Test Item Value Reference Range Interpretation Comments STAIN ACCEPTABILITY (test code = STN ACCEPTABLE) MORPHOLOGY COMMENT (test code = MOC) PLATELET ESTIMATE (test code = PLTEST) PLATELET MORPHOLOGY (test code = PLTMORPH) CBC W/AUTO [id number] 05:00:00* Test Item Value Reference Range Interpretation [...] = MDIFF) NO, ONLY SCAN NEEDED DIFFERENTIAL [id number] 05:00:00* Test Item Value Reference Range Interpretation Comments STAIN ACCEPTABILITY (test code = STN ACCEPTABLE) CABOT RINGS (test code = CAB) MORPHOLOGY COMMENT (test code = MOC) PLATELET ESTIMATE (test code = PLTEST) PLATELET MORPHOLOGY (test code = PLTMORPH) [id number] 20:25:00* Test Item Value Reference Range Interpretation Comments GLUBED (test code = GLUBED) 146 mg/dL 74-106 H Performed by certified box printing machine operator at [facility] [id number] 15:10:00* Test Item Value Reference Range Interpretation Comments GLUBED (test code = GLUBED) 266 mg/dL 74-106 H Performed by certified box printing machine operator at [facility] [id number] 11:49:00* Test Item Value Reference Range Interpretation Comments GLUBED (test code = GLUBED) 297 mg/dL 74-106 H Performed by certified box printing machine operator at [facility] [id number] 07:56:00* Test Item Value Reference Range Interpretation Comments GLUBED (test code = GLUBED) 241 mg/dL 74-106 H Performed by certified box printing machine operator at [facility] [id number] 20:49:00* Test Item Value Reference Range Interpretation Comments GLUBED (test code = GLUBED) 277 mg/dL 74-106 H Per[facility] by certified box printing machine operator [facility] [id number] 16:24:00* Test Item Value Reference Range Interpretation Comments GLUBED (test code = GLUBED) 114 mg/dL 74-106 H Per[facility] by certified box printing machine operator [facility] [id number] 12:12:00* Test Item Value Reference Range Interpretation Comments GLUBED (test code = GLUBED) 229 mg/dL 74-106 H Per[facility] by certified box printing machine operator [facility] [id number] 08:05:00* Test Item Value Reference Range Interpretation Comments GLUBED (test code = GLUBED) 359 mg/dL 74-106 H Per[facility] by certified box printing machine operator [facility] CBC W/AUTO [id number] 05:51:00* Test Item Value Reference Range Interpretation [...] = MDIFF) NO, ONLY SCAN NEEDED DIFFERENTIAL [id number] 05:51:00* Test Item Value Reference Range Interpretation [...] (test code = PLTMORPH) NORMAL COMPREHENSIVE METABOLIC [id number] 05:05:00* Test Item Value Reference Range Interpretation [...] due to change in reagent. COMPREHENSIVE METABOLIC [id number] 04:51:00* Test Item Value Reference Range Interpretation [...] code = ALKP) IUnit/L 45-117 CBC W/AUTO [id number] 04:41:00* Test Item Value Reference Range Interpretation [...] = MDIFF) NO, ONLY SCAN NEEDED DIFFERENTIAL [id number] 04:41:00* Test Item Value Reference Range Interpretation Comments STAIN ACCEPTABILITY (test code = STN ACCEPTABLE) CABOT RINGS (test code = CAB) MORPHOLOGY COMMENT (test code = MOC) PLATELET ESTIMATE (test code = PLTEST) PLATELET MORPHOLOGY (test code = PLTMORPH) CBC W/AUTO [id number] 04:41:00* Test Item Value Reference Range Interpretation [...] = MDIFF) NO, ONLY SCAN NEEDED DIFFERENTIAL [id number] 04:41:00* Test Item Value Reference Range Interpretation Comments STAIN ACCEPTABILITY (test code = STN ACCEPTABLE) CABOT RINGS (test code = CAB) MORPHOLOGY COMMENT (test code = MOC) PLATELET ESTIMATE (test code = PLTEST) PLATELET MORPHOLOGY (test code = PLTMORPH) CBC W/AUTO [id number] 04:41:00* Test Item Value Reference Range Interpretation [...] = MDIFF) NO, ONLY SCAN NEEDED DIFFERENTIAL [id number] 04:41:00* Test Item Value Reference Range Interpretation Comments STAIN ACCEPTABILITY (test code = STN ACCEPTABLE) MORPHOLOGY COMMENT (test code = MOC) PLATELET ESTIMATE (test code = PLTEST) PLATELET MORPHOLOGY (test code = PLTMORPH) CBC W/AUTO [id number] 04:41:00* Test Item Value Reference Range Interpretation [...] = MDIFF) NO, ONLY SCAN NEEDED DIFFERENTIAL [id number] 04:41:00* Test Item Value Reference Range Interpretation Comments STAIN ACCEPTABILITY (test code = STN ACCEPTABLE) CABOT RINGS (test code = CAB) MORPHOLOGY COMMENT (test code = MOC) PLATELET ESTIMATE (test code = PLTEST) PLATELET MORPHOLOGY (test code = PLTMORPH) [id number] 20:46:00* Test Item Value Reference Range Interpretation Comments GLUBED (test code = GLUBED) 242 mg/dL 74-106 H Performed by certified box printing machine operator at [facility] [id number] 16:35:00* Test Item Value Reference Range Interpretation Comments GLUBED (test code = GLUBED) 345 mg/dL 74-106 H Performed by certified box printing machine operator [facility] BASIC METABOLIC [id number] 09:05:00* Test Item Value Reference Range Interpretation [...] CA) 8.7 mg/dL 8.5-10.1 N BASIC METABOLIC [id number] 09:00:00* Test Item Value Reference Range Interpretation [...] CALCIUM (test code = CA) mg/dL 8.5-10.1 [id number] 08:20:00* Test Item Value Reference Range Interpretation Comments GLUBED (test code = GLUBED) 349 mg/dL 74-106 H Per[facility] by certified box printing machine [facility] CBC W/AUTO [id number] 06:48:00* Test Item Value Reference Range Interpretation [...] = MDIFF) NO, ONLY SCAN NEEDED DIFFERENTIAL [id number] 06:48:00* Test Item Value Reference Range Interpretation Comments STAIN ACCEPTABILITY (test code = STN ACCEPTABLE) STAIN ACCEPTABLE POLYCHROMASIA (test code = POLC) 2+ HYPOCHROMIA (test code = HYPO) 1+ ANISOCYTOSIS (test code = ANISO) 2+ MICROCYTOSIS (test code = MICR) 2+ PLATELET ESTIMATE (test code = PLTEST) DECREASED PLATELET MORPHOLOGY (test code = PLTMORPH) NORMAL COMPREHENSIVE METABOLIC [id number] 05:21:00* Test Item Value Reference Range Interpretation [...] due to change in reagent. COMPREHENSIVE METABOLIC [id number] 05:14:00* Test Item Value Reference Range Interpretation [...] code = ALKP) IUnit/L 45-117 CBC W/AUTO [id number] 05:08:00* Test Item Value Reference Range Interpretation [...] = MDIFF) NO, ONLY SCAN NEEDED DIFFERENTIAL [id number] 05:08:00* Test Item Value Reference Range Interpretation Comments STAIN ACCEPTABILITY (test code = STN ACCEPTABLE) CABOT RINGS (test code = CAB) MORPHOLOGY COMMENT (test code = MOC) PLATELET ESTIMATE (test code = PLTEST) PLATELET MORPHOLOGY (test code = PLTMORPH) CBC W/AUTO [id number] 05:08:00* Test Item Value Reference Range Interpretation [...] = MDIFF) NO, ONLY SCAN NEEDED DIFFERENTIAL [id number] 05:08:00* Test Item Value Reference Range Interpretation Comments STAIN ACCEPTABILITY (test code = STN ACCEPTABLE) CABOT RINGS (test code = CAB) MORPHOLOGY COMMENT (test code = MOC) PLATELET ESTIMATE (test code = PLTEST) PLATELET MORPHOLOGY (test code = PLTMORPH) CBC W/AUTO [id number] 05:08:00* Test Item Value Reference Range Interpretation [...] = MDIFF) NO, ONLY SCAN NEEDED DIFFERENTIAL [id number] 05:08:00* Test Item Value Reference Range Interpretation Comments STAIN ACCEPTABILITY (test code = STN ACCEPTABLE) MORPHOLOGY COMMENT (test code = MOC) PLATELET ESTIMATE (test code = PLTEST) PLATELET MORPHOLOGY (test code = PLTMORPH) CBC W/AUTO [id number] 05:08:00* Test Item Value Reference Range Interpretation [...] = MDIFF) NO, ONLY SCAN NEEDED DIFFERENTIAL [id number] 05:08:00* Test Item Value Reference Range Interpretation Comments STAIN ACCEPTABILITY (test code = STN ACCEPTABLE) CABOT RINGS (test code = CAB) MORPHOLOGY COMMENT (test code = MOC) PLATELET ESTIMATE (test code = PLTEST) PLATELET MORPHOLOGY (test code = PLTMORPH) [id number] 20:40:00* Test Item Value Reference Range Interpretation Comments GLUBED (test code = GLUBED) 160 mg/dL 74-106 H Performed by certified box printing machine operator at [facility] Coronavirus 2019 nCoV [id number] 18:50:00* Test Item Value Reference Range Interpretation Comments Coronavirus 2019 nCoV Bedside (test code = HJPCK83NAPAD) Negative [id number] 16:03:00* Test Item Value Reference Range Interpretation Comments GLUBED (test code = GLUBED) 310 mg/dL 74-106 H Per[facility] by certified box printing machine operator [facility] [id number] 11:57:00* Test Item Value Reference Range Interpretation Comments GLUBED (test code = GLUBED) 416 mg/dL 74-106 H Per[facility] by certified box printing machine operator [facility] [id number] 08:07:00* Test Item Value Reference Range Interpretation Comments GLUBED (test code = GLUBED) 356 mg/dL 74-106 H Performed by certified box printing machine operator [facility] BASIC METABOLIC [id number] 04:53:00* Test Item Value Reference Range Interpretation [...] code = CA) 8.5 mg/dL 8.5-10.1 N [id number] 04:53:00* Test Item Value Reference Range Interpretation Comments MAGNESIUM (test code = MAG) 1.9 mg/dL 1.8-2.4 N [id number] 23:55:00* Test Item Value Reference Range Interpretation Comments GLUBED (test code = GLUBED) 391 mg/dL 74-106 H Performed by certified box printing machine operator at [facility] [id number] 20:25:00* Test Item Value Reference Range Interpretation Comments GLUBED (test code = GLUBED) 452 mg/dL 74-106 H Per[facility] by certified box printing machine operator [facility] [id number] 20:15:00* Test Item Value Reference Range Interpretation Comments TROPONIN-I (test code = TROPI) <0.015 ng/mL 0-0.045 N COMMENTS TO STAPLING MACHINE OPERATOR: COLLECT 3 HOURS AFTER PREVIOUS [id number] 17:14:00* Test Item Value Reference Range Interpretation Comments TROPONIN-I (test code = TROPI) <0.015 ng/mL 0-0.045 N COMMENTS TO STAPLING MACHINE OPERATOR: COLLECT 3 HOURS AFTER PREVIOUS [id number] 15:52:00* Test Item Value Reference Range Interpretation Comments GLUBED (test code = GLUBED) 90 mg/dL 74-106 N Performed by certified box printing machine operator at [facility] B-TYPE NATRIURETIC [id number] 10:43:00* Test Item Value Reference Range Interpretation Comments B-TYPE NATRIURETIC PEPTIDE (test code = BNP) 120.97 pgram/mL 0-100 H BASIC METABOLIC [id number] 10:37:00* Test Item Value Reference Range Interpretation [...] code = CA) 8.8 mg/dL 8.5-10.1 N [id number] 10:37:00* Test Item Value Reference Range Interpretation Comments TROPONIN-I (test code = TROPI) <0.015 ng/mL 0-0.045 N PROTHROMBIN [id number] 10:25:00* Test Item Value Reference Range Interpretation [...] (2.5-3.5) IS PATIENT ON ANTICOAGULANTS? NTHROMBOPLASTIN TIME [id number] 10:25:00* Test Item Value Reference Range Interpretation Comments THROMBOPLASTIN TIME PARTIAL (test code = PTT) 22.9 seconds 23.0-37. 0 L IS PATIENT ON ANTICOAGULANTS? NBASIC METABOLIC [id number] 10:22:00* Test Item Value Reference Range Interpretation [...] CALCIUM (test code = CA) mg/dL 8.5-10.1 [id number] 10:22:00* Test Item Value Reference Range Interpretation Comments TROPONIN-I (test code = TROPI) ng/mL 0-0.045 CBC W/O [id number] 10:15:00* Test Item Value Reference Range Interpretation [...] fL 6.7-11.0 N - XR CHEST 1 [id number] 10:04:00 FAX: Hardeep Douglas [phone] [place]: B St: [facility] FAX: Benjamin Francis MD [phone] Name: KALYANI TALAVERA [facility] : 1955 Age/S: 64/F Shukri Glaser Unit #: [id number] Loc: [place] [address] Phys: Hardeep Ann MD Acct: [id number] Dis Date: Status: REG ER PHONE #: [phone] Exam Date: 11/20/2019928 FAX #: [phone] Reason: Shortness of Breath EXAMS: CPT CODE: [id number] XR CHEST 1 V 53077 REASON FOR EXAM: Shortness of Breath Exam Order Date: 11/20/2019 9:23 AM Ordering M.D.: Hardeep Ann MD PROCEDURE: - XR CHEST [...] chronic elevation of the right hemidiaphragm. Location: [facility] at 1004 Reported and signed by: Dago Goodson MD CC: Hardeep Ann MD; Benjamin Masters Technologist: SUSAN HAMMONDS JR Trnscrd Date/Time/By: 0 (1004) : By: [email or web address] Orig Print D/T: S: 11/20/2019 (1007) PAGE 1 Signed Report BASIC METABOLIC [id number] 15:36:00* Test Item Value Reference Range Interpretation [...] CA) 8.5 mg/dL 8.5-10.1 N BASIC METABOLIC [id number] 15:32:00* Test Item Value Reference Range Interpretation [...] CALCIUM (test code = CA) mg/dL 8.5-10.1 [id number] 11:56:00* Test Item Value Reference Range Interpretation Comments GLUBED (test code = GLUBED) 268 mg/dL 74-106 H Performed by certified box printing machine operator at [facility] [id number] 08:34:00* Test Item Value Reference Range Interpretation Comments GLUBED (test code = GLUBED) 213 mg/dL 74-106 H Performed by certified box printing machine operator at [facility] COMPREHENSIVE METABOLIC [id number] 06:54:00* Test Item Value Reference Range Interpretation [...] due to change in reagent. COMPREHENSIVE METABOLIC [id number] 06:39:00* Test Item Value Reference Range Interpretation [...] TOTAL (test code = ALKP) IUnit/L 45-117 [id number] 19:31:00* Test Item Value Reference Range Interpretation Comments GLUBED (test code = GLUBED) 307 mg/dL 74-106 H Performed by certified box printing machine operator at [facility] BASIC METABOLIC [id number] 16:35:00* Test Item Value Reference Range Interpretation [...] CA) 8.9 mg/dL 8.5-10.1 N BASIC METABOLIC [id number] 16:30:00* Test Item Value Reference Range Interpretation [...] CALCIUM (test code = CA) mg/dL 8.5-10.1 [id number] 15:31:00* Test Item Value Reference Range Interpretation Comments GLUBED (test code = GLUBED) 155 mg/dL 74-106 H Performed by certified box printing machine operator at [facility] [id number] 11:44:00* Test Item Value Reference Range Interpretation Comments GLUBED (test code = GLUBED) 180 mg/dL 74-106 H Performed by certified box printing machine operator at [facility] [id number] 08:05:00* Test Item Value Reference Range Interpretation Comments GLUBED (test code = GLUBED) 236 mg/dL 74-106 H Performed by certified box printing machine operator at [facility] COMPREHENSIVE METABOLIC [id number] 04:48:00* Test Item Value Reference Range Interpretation [...] due to change in reagent. COMPREHENSIVE METABOLIC [id number] 04:35:00* Test Item Value Reference Range Interpretation [...] TOTAL (test code = ALKP) IUnit/L 45-117 [id number] 20:09:00* Test Item Value Reference Range Interpretation Comments GLUBED (test code = GLUBED) 126 mg/dL 74-106 H Performed by certified box printing machine operator at [facility] [id number] 15:38:00* Test Item Value Reference Range Interpretation Comments GLUBED (test code = GLUBED) 241 mg/dL 74-106 H Performed by certified box printing machine operator at [facility] [id number] 11:39:00* Test Item Value Reference Range Interpretation Comments GLUBED (test code = GLUBED) 406 mg/dL 74-106 H Performed by certified box printing machine operator at [facility] [id number] 07:56:00* Test Item Value Reference Range Interpretation Comments GLUBED (test code = GLUBED) 318 mg/dL 74-106 H Performed by certified box printing machine operator at [facility] COMPREHENSIVE METABOLIC [id number] 04:33:00* Test Item Value Reference Range Interpretation [...] due to change in reagent. COMPREHENSIVE METABOLIC [id number] 04:24:00* Test Item Value Reference Range Interpretation [...] TOTAL (test code = ALKP) IUnit/L 45-117 [id number] 22:02:00* Test Item Value Reference Range Interpretation Comments GLUBED (test code = GLUBED) 108 mg/dL 74-106 H Performed by certified box printing machine operator at [facility] [id number] 19:58:00* Test Item Value Reference Range Interpretation Comments GLUBED (test code = GLUBED) 117 mg/dL 74-106 H Performed by certified box printing machine operator at [facility] [id number] 11:46:00* Test Item Value Reference Range Interpretation Comments GLUBED (test code = GLUBED) 277 mg/dL 74-106 H Performed by certified box printing machine operator at [facility] [id number] 11:46:00* Test Item Value Reference Range Interpretation Comments GLUBED (test code = GLUBED) 286 mg/dL 74-106 H Performed by certified box printing machine operator at [facility] [id number] 04:37:00* Test Item Value Reference Range Interpretation Comments FERRITIN (test code = DESI) 14 ng/mL 8-388 N FE W/TOTAL IRON BINDING CAP.2019-10-21 04:28:00* Test Item Value Reference Range Interpretation Comments SERUM IRON (test code = IRON) 65 ug/dL 50-175 N TOTAL IRON BINDING CAPACITY (test code = TIBC) 532 mcg/dL 250-450 H IRON SATURATION (test code = FESAT) 12.22 % 13-45 L [id number] 03:52:00* Test Item Value Reference Range Interpretation Comments GLUBED (test code = GLUBED) 287 mg/dL 74-106 H [facility] certified box printing machine [facility] [id number] 20:27:00* Test Item Value Reference Range Interpretation Comments GLUBED (test code = GLUBED) 132 mg/dL 74-106 H [facility] certified box printing machine [facility] [id number] 17:34:00* Test Item Value Reference Range Interpretation Comments GLUBED (test code = GLUBED) 167 mg/dL 74-106 H Performed by certified box printing machine operator at [facility] [id number] 12:06:00* Test Item Value Reference Range Interpretation Comments GLUBED (test code = GLUBED) 271 mg/dL 74-106 H Performed by certified box printing machine operator at [facility] - XR CHEST 1 [id number] 08:35:00 FAX: Rigo Mccormick MD [phone] [place]: B St: [facility] FAX: Benjamin Francis MD [phone] Name: KALYANI TALAVERA [facility] : 1955 Age/S: 64/F [address] [facility] Unit #: [id number] Loc: V.4[address] [place] [address] Phys: Rigo Alexander MD Acct: [id number] Dis Date: Status: ADM IN PHONE #: [phone] Exam Date: 10/20/2019 08 FAX #: [phone] Reason: chf EXAMS: CPT CODE: [id number] XR CHEST 1 V 75725 CLINICAL HISTORY: chf TECHNIQUE: AP chest x-ray [...] Technologist: TAWANNA HURTADO RT(R) Trnscrd Date/Time/By: 10/20/2019 (0835) : By: aniyah [email or web address] Orig Print D/T: S: 10/20/2019 (0838) P AGE 2 Signed Report GLUBED 2019-10-20 08:30:00* Test Item Value Reference Range Interpretation Comments GLUBED (test code = GLUBED) 234 mg/dL 74-106 H Performed by certified box printing machine operator at [facility] CBC W/AUTO [id number] 05:46:00* Test Item Value Reference Range Interpretation [...] = MDIFF) NO, ONLY SCAN NEEDED DIFFERENTIAL [id number] 05:46:00* Test Item Value Reference Range Interpretation [...] (test code = PLTMORPH) NORMAL BASIC METABOLIC [id number] 05:36:00* Test Item Value Reference Range Interpretation [...] CA) 9.4 mg/dL 8.5-10.1 N BASIC METABOLIC [id number] 05:30:00* Test Item Value Reference Range Interpretation [...] code = CA) mg/dL 8.5-10.1 CBC W/AUTO [id number] 05:11:00* Test Item Value Reference Range Interpretation [...] = MDIFF) NO, ONLY SCAN NEEDED DIFFERENTIAL [id number] 05:11:00* Test Item Value Reference Range Interpretation Comments STAIN ACCEPTABILITY (test code = STN ACCEPTABLE) CABOT RINGS (test code = CAB) MORPHOLOGY COMMENT (test code = MOC) PLATELET ESTIMATE (test code = PLTEST) PLATELET MORPHOLOGY (test code = PLTMORPH) CBC W/AUTO [id number] 05:11:00* Test Item Value Reference Range Interpretation [...] = MDIFF) NO, ONLY SCAN NEEDED DIFFERENTIAL [id number] 05:11:00* Test Item Value Reference Range Interpretation Comments STAIN ACCEPTABILITY (test code = STN ACCEPTABLE) CABOT RINGS (test code = CAB) MORPHOLOGY COMMENT (test code = MOC) PLATELET ESTIMATE (test code = PLTEST) PLATELET MORPHOLOGY (test code = PLTMORPH) CBC W/AUTO [id number] 05:11:00* Test Item Value Reference Range Interpretation [...] = MDIFF) NO, ONLY SCAN NEEDED DIFFERENTIAL [id number] 05:11:00* Test Item Value Reference Range Interpretation Comments STAIN ACCEPTABILITY (test code = STN ACCEPTABLE) MORPHOLOGY COMMENT (test code = MOC) PLATELET ESTIMATE (test code = PLTEST) PLATELET MORPHOLOGY (test code = PLTMORPH) CBC W/AUTO [id number] 05:11:00* Test Item Value Reference Range Interpretation [...] = MDIFF) NO, ONLY SCAN NEEDED DIFFERENTIAL [id number] 05:11:00* Test Item Value Reference Range Interpretation Comments STAIN ACCEPTABILITY (test code = STN ACCEPTABLE) CABOT RINGS (test code = CAB) MORPHOLOGY COMMENT (test code = MOC) PLATELET ESTIMATE (test code = PLTEST) PLATELET MORPHOLOGY (test code = PLTMORPH) [id number] 19:55:00* Test Item Value Reference Range Interpretation Comments GLUBED (test code = GLUBED) 245 mg/dL 74-106 H Performed by certified box printing machine operator at [facility] [id number] 17:25:00* Test Item Value Reference Range Interpretation Comments GLUBED (test code = GLUBED) 316 mg/dL 74-106 H Performed by certified box printing machine operator at [facility] [id number] 12:03:00* Test Item Value Reference Range Interpretation Comments GLUBED (test code = GLUBED) 266 mg/dL 74-106 H Performed by certified box printing machine operator at [facility] [id number] 11:55:00* Test Item Value Reference Range Interpretation Comments GLUBED (test code = GLUBED) 300 mg/dL 74-106 H Performed by certified box printing machine operator at [facility] COMPREHENSIVE METABOLIC [id number] 04:36:00* Test Item Value Reference Range Interpretation [...] due to change in reagent. COMPREHENSIVE METABOLIC [id number] 04:25:00* Test Item Value Reference Range Interpretation [...] TOTAL (test code = ALKP) IUnit/L 45-117 [id number] 20:30:00* Test Item Value Reference Range Interpretation Comments GLUBED (test code = GLUBED) 202 mg/dL 74-106 H [facility] certified box printing machine [facility] [id number] 18:41:00* Test Item Value Reference Range Interpretation Comments GLUBED (test code = GLUBED) 229 mg/dL 74-106 H Performed by certified box printing machine operator at [facility] [id number] 15:56:00* Test Item Value Reference Range Interpretation Comments GLUBED (test code = GLUBED) 271 mg/dL 74-106 H Performed by certified box printing machine operator at [facility] [id number] 15:00:00* Test Item Value Reference Range Interpretation Comments GLYCOSYLATED HEMOGLOBIN (HA1C) (test code = GLYHGB) 9.6 % HbA1 SUGGESTED DIAGNOSIS: HbA1C (%) Diabetic >6.4Prediabetes 5.7 - 6.4Normal <5.7 ESTIMATED AVERAGE GLUCOSE (test code = EAG) 229 MG/DL [id number] 11:26:00* Test Item Value Reference Range Interpretation Comments GLUBED (test code = GLUBED) 372 mg/dL 74-106 H Performed by certified box printing machine operator at [facility] - XR CHEST 1 [id number] 08:31:00 FAX: Rigo Mccormick MD [phone] [place]: [facility]: [facility] FAX: Benjamin Francis MD [phone] Name: KALYANI TALAVERA [facility] : 1955 Age/S: 64/F [address] [facility] Unit #: [id number] [facility] [place] [address] Phys: Rigo Alexander MD Acct: [id number] Dis Date: Status: ADM IN PHONE #: [phone] Exam Date: 10/18/2019 08 FAX #: [phone] Reason: chf EXAMS: CPT CODE: [id number] XR CHEST 1 V 84344 REASON FOR EXAM: chf Exam Order Date: 10/18/2019 5:00 AM Ordering M.D.: Rigo Alexander MD PROCEDURE: - XR CHEST [...] limits. IMPRESSION: No acute cardiopulmonary process. Location: [facility] Electronic ally Signed by Dago Goodson MD on 10/18/2019 at 0831 Repo rted and signed by: Dago Goodson MD CC: Rigo Alexander MD; Benjamin Masters Technologist: SUSAN HAMMONDS JR Trnscrd Date/Time/By: 10/18/2019 (0831) : By: [email or web address] Orig Print D/T: S: 10/18/2019 (0834) PAGE 1 Signed Report [id number] 07:40:00 * Test Item Value Reference Range Interpretation Comments GLUBED (test code = GLUBED) 391 mg/dL 74-106 H Performed by certified box printing machine operator at [facility] COMPREHENSIVE METABOLIC [id number] 04:54:00* Test Item Value Reference Range Interpretation [...] reference range due to change in reagent. [id number] 04:54:00* Test Item Value Reference Range Interpretation Comments MAGNESIUM (test code = MAG) 1.8 mg/dL 1.8-2.4 N COMPREHENSIVE METABOLIC [id number] 04:45:00* Test Item Value Reference Range Interpretation [...] TOTAL (test code = ALKP) IUnit/L 45-117 [id number] 04:45:00* Test Item Value Reference Range Interpretation Comments MAGNESIUM (test code = MAG) mg/dL 1.8-2.4 CBC W/AUTO [id number] 04:28:00* Test Item Value Reference Range Interpretation [...] code = NRBC#) 0.00 K/mm3 0.0-0.1 N [id number] 23:49:00* Test Item Value Reference Range Interpretation Comments TROPONIN-I (test code = TROPI) 0.024 ng/mL 0-0.045 N COMMENTS TO STAPLING MACHINE OPERATOR: COLLECT 3 HOURS AFTER PREVIOUS [id number] 20:30:00* Test Item Value Reference Range Interpretation Comments GLUBED (test code = GLUBED) 288 mg/dL 74-106 H Performed by certified box printing machine operator at [facility] [id number] 19:35:00* Test Item Value Reference Range Interpretation Comments TROPONIN-I (test code = TROPI) 0.027 ng/mL 0-0.045 N COMMENTS TO STAPLING MACHINE OPERATOR: COLLECT 3 HOURS AFTER PREVIOUS SAMPLE- CT CHEST W/O [id number] 18:12:00 Name: KALYANI TALAVERA [facility] : 1955 Age/S: 64 / F [address] Unit #: [id number] Loc: [place] [address] Phys: Pravin Christianson MD Acct: [id number] Dis Date: Status: ADM IN PHONE #: [phone] Exam Date: 10/17/2019 1800 FAX #: [phone] Reason: Dyspnea, Crackles in bases EXAMS: CPT CODE: [id number] CT CHEST W/O CONTRAST 54681 HISTORY: Dyspnea and crackles in the base. [...] Love CC: Pravin Christianson MD; Benjamin Masters Techno logist:Arianna Hendrix RT(R) CTDI: DLP: Trnscb Date/Time : 10/17/2019 (1811) LeanneTH4 PAGE 1 Signed Report [id number] 17:25:00* Test Item Value Reference Range Interpretation Comments MAGNESIUM (test code = MAG) 1.8 mg/dL 1.8-2.4 N [id number] 16:20:00* Test Item Value Reference Range Interpretation Comments GLUBED (test code = GLUBED) 221 mg/dL 74-106 H Performed by certified box printing machine operator at [facility] B-TYPE NATRIURETIC [id number] 10:56:00* Test Item Value Reference Range Interpretation Comments B-TYPE NATRIURETIC PEPTIDE (test code = BNP) 58.67 pgram/mL 0-100 N BASIC METABOLIC [id number] 10:25:00* Test Item Value Reference Range Interpretation [...] code = CA) 8.6 mg/dL 8.5-10.1 N [id number] 10:25:00* Test Item Value Reference Range Interpretation Comments TROPONIN-I (test code = TROPI) 0.025 ng/mL 0-0.045 N BASIC METABOLIC [id number] 10:15:00* Test Item Value Reference Range Interpretation [...] CALCIUM (test code = CA) mg/dL 8.5-10.1 [id number] 10:15:00* Test Item Value Reference Range Interpretation Comments TROPONIN-I (test code = TROPI) ng/mL 0-0.045 CBC W/O [id number] 09:54:00* Test Item Value Reference Range Interpretation [...] fL 6.7-11.0 N - XR CHEST 1 [id number] 09:54:00 FAX: Patel Kulkarni MD [place]: B St: PRE FAX: Benjamin Francis MD [phone] Name: KALYANI TALAVERA [facility] : 1955 Age/S: 64/F [address] Unit #: [id number] [facility] [place] [address] Phys: Patel Kulkarni MD Acct: [id number] Dis Date: Status: PRE ER PHONE #: [phone] Exam Date: 10/17/2019 0946 FAX #: [phone] Reason: Shortness of Breath EXAMS: CPT CODE: [id number] XR CHEST 1 V 68300 CLINICAL HISTORY: Shortness of Breath TECHNIQUE: AP [...] Patel Kulkarni MD; Benjamin Masters Technologist: Marci Galloway) Trnscrd Date/Time/By: 10/17/19 20 (0954) : By: [email or web address] [facility] Print D/T: S: 10/17/2019 (0957) PAGE 1 Signed Report [id number] 15:30:00* Test Item Value Reference Range Interpretation Comments GLUBED (test code = GLUBED) 138 mg/dL 74-106 H Performed by certified box printing machine operator at [facility] COMPREHENSIVE METABOLIC [id number] 14:28:00* Test Item Value Reference Range Interpretation [...] due to change in reagent. COMPREHENSIVE METABOLIC [id number] 14:18:00* Test Item Value Reference Range Interpretation [...] code = ALKP) IUnit/L 45-117 CBC W/AUTO [id number] 13:43:00* Test Item Value Reference Range Interpretation [...] NRBC#) 0.02 K/mm3 0.0-0.1 N CBC W/AUTO [id number] 13:37:00* Test Item Value Reference Range Interpretation [...] # (test code = BA#) K/mm3 0.0-0.2 [id number] 12:24:00* Test Item Value Reference Range Interpretation Comments GLUBED (test code = GLUBED) 142 mg/dL 74-106 H Performed by certified box printing machine operator at [facility] [id number] 07:57:00* Test Item Value Reference Range Interpretation Comments GLUBED (test code = GLUBED) 221 mg/dL 74-106 H Performed by certified box printing machine operator at [facility] - XR CHEST 1 [id number] 21:23:00 FAX: Alfa Moscoso MD [phone] [place]: St: [facility] FAX: Benjamin Francis MD [phone] Name: KALYANI TALAVERA [facility] : 1955 Age/S: 64/F [address] Unit #: [id number] Loc: V.[address] [place] [address] Phys: Alfa Cassidy MD Acct: [id number] Dis Date: Status: ADM IN PHONE #: [phone] Exam Date: 09/07/20192048 FAX #: [phone] Reason: ACUTE CHF EXAMS: CPT CODE: [id number] XR CHEST 1 V 53133 CLINICAL HISTORY: ACUTE CHF TECHNIQUE: AP chest x-ray COMPARISON: 09/03/19 IMPRESSION: No significant interval change. Low lung volumes with bibasilar subsegmental atelectasis. No airspace consolidation or pleural effusion. Mild cardiomegaly with pulmonary congestion. Mediastinal silhouette is unre markable. LOCATION: at 2122 Reported and signed by: Kary Camacho D.O. CC: Alfa Osullivan MD; Benjamin Masters Technologist: Freda Guzman T(R); TAWANNA CLEMENTS(R) Trnscrd Date/Time/By: 09/07/2019 (2122) : By: [email or web address] Orig Print D/T: S: 09/07/2019 (2125) PAGE 1 Signed Report [id number] 20:44:00* Test Item Value Reference Range Interpretation Comments GLUBED (test code = GLUBED) 176 mg/dL 74-106 H Performed by certified box printing machine operator at [facility] CBC W/AUTO [id number] 17:54:00* Test Item Value Reference Range Interpretation [...] = MDIFF) NO, ONLY SCAN NEEDED DIFFERENTIAL [id number] 17:54:00* Test Item Value Reference Range Interpretation Comments STAIN ACCEPTABILITY (test code = STN ACCEPTABLE) STAIN ACCEPTABLE ANISOCYTOSIS (test code = ANISO) 1+ PLATELET ESTIMATE (test code = PLTEST) DECREASED PLATELET MORPHOLOGY (test code = PLTMORPH) NORMAL COMPREHENSIVE METABOLIC [id number] 17:01:00* Test Item Value Reference Range Interpretation [...] reference range due to change in reagent. [id number] 17:00:00* Test Item Value Reference Range Interpretation Comments GLUBED (test code = GLUBED) 270 mg/dL 74-106 H Performed by certified box printing machine operator at [facility] B-TYPE NATRIURETIC [id number] 17:00:00* Test Item Value Reference Range Interpretation Comments B-TYPE NATRIURETIC PEPTIDE (test code = BNP) 33.15 pgram/mL 0-100 N CBC W/AUTO [id number] 16:55:00* Test Item Value Reference Range Interpretation [...] = MDIFF) NO, ONLY SCAN NEEDED DIFFERENTIAL [id number] 16:55:00* Test Item Value Reference Range Interpretation Comments STAIN ACCEPTABILITY (test code = STN ACCEPTABLE) CABOT RINGS (test code = CAB) MORPHOLOGY COMMENT (test code = MOC) PLATELET ESTIMATE (test code = PLTEST) PLATELET MORPHOLOGY (test code = PLTMORPH) CBC W/AUTO [id number] 16:55:00* Test Item Value Reference Range Interpretation [...] = MDIFF) NO, ONLY SCAN NEEDED DIFFERENTIAL [id number] 16:55:00* Test Item Value Reference Range Interpretation Comments STAIN ACCEPTABILITY (test code = STN ACCEPTABLE) CABOT RINGS (test code = CAB) MORPHOLOGY COMMENT (test code = MOC) PLATELET ESTIMATE (test code = PLTEST) PLATELET MORPHOLOGY (test code = PLTMORPH) CBC W/AUTO [id number] 16:55:00* Test Item Value Reference Range Interpretation [...] = MDIFF) NO, ONLY SCAN NEEDED DIFFERENTIAL [id number] 16:55:00* Test Item Value Reference Range Interpretation Comments STAIN ACCEPTABILITY (test code = STN ACCEPTABLE) MORPHOLOGY COMMENT (test code = MOC) PLATELET ESTIMATE (test code = PLTEST) PLATELET MORPHOLOGY (test code = PLTMORPH) CBC W/AUTO [id number] 16:55:00* Test Item Value Reference Range Interpretation [...] = MDIFF) NO, ONLY SCAN NEEDED DIFFERENTIAL [id number] 16:55:00* Test Item Value Reference Range Interpretation Comments STAIN ACCEPTABILITY (test code = STN ACCEPTABLE) CABOT RINGS (test code = CAB) MORPHOLOGY COMMENT (test code = MOC) PLATELET ESTIMATE (test code = PLTEST) PLATELET MORPHOLOGY (test code = PLTMORPH) CBC W/AUTO [id number] 16:49:00* Test Item Value Reference Range Interpretation [...] code = BA#) K/mm3 0.0-0.2 COMPREHENSIVE METABOLIC [id number] 16:49:00* Test Item Value Reference Range Interpretation [...] TOTAL (test code = ALKP) IUnit/L 45-117 [id number] 12:09:00* Test Item Value Reference Range Interpretation Comments GLUBED (test code = GLUBED) 219 mg/dL 74-106 H Performed by certified box printing machine operator at [facility] [id number] 08:21:00* Test Item Value Reference Range Interpretation Comments GLUBED (test code = GLUBED) 249 mg/dL 74-106 H Performed by certified box printing machine operator at [facility] BASIC METABOLIC [id number] 06:22:00* Test Item Value Reference Range Interpretation [...] code = CA) 8.6 mg/dL 8.5-10.1 N [id number] 20:04:00* Test Item Value Reference Range Interpretation Comments GLUBED (test code = GLUBED) 282 mg/dL 74-106 H Performed by certified box printing machine operator at [facility] [id number] 17:10:00* Test Item Value Reference Range Interpretation Comments GLUBED (test code = GLUBED) 210 mg/dL 74-106 H Performed by certified box printing machine operator at [facility] [id number] 11:31:00* Test Item Value Reference Range Interpretation Comments GLUBED (test code = GLUBED) 179 mg/dL 74-106 H Performed by certified box printing machine operator at [facility] BASIC METABOLIC [id number] 09:04:00* Test Item Value Reference Range Interpretation [...] CA) 8.7 mg/dL 8.5-10.1 N BASIC METABOLIC [id number] 08:59:00* Test Item Value Reference Range Interpretation [...] CALCIUM (test code = CA) mg/dL 8.5-10.1 [id number] 08:24:00* Test Item Value Reference Range Interpretation Comments GLUBED (test code = GLUBED) 201 mg/dL 74-106 H Performed by certified box printing machine operator at [facility] [id number] 21:07:00* Test Item Value Reference Range Interpretation Comments GLUBED (test code = GLUBED) 185 mg/dL 74-106 H Performed by certified box printing machine operator at [facility] [id number] 20:21:00* Test Item Value Reference Range Interpretation Comments GLUBED (test code = GLUBED) 168 mg/dL 74-106 H Performed by certified box printing machine operator at [facility] [id number] 17:21:00* Test Item Value Reference Range Interpretation Comments GLUBED (test code = GLUBED) 104 mg/dL 74-106 N Performed by certified box printing machine operator at [facility] [id number] 11:54:00* Test Item Value Reference Range Interpretation Comments GLUBED (test code = GLUBED) 207 mg/dL 74-106 H Performed by certified box printing machine operator at [facility] [id number] 10:26:00* Test Item Value Reference Range Interpretation Comments GLUBED (test code = GLUBED) 266 mg/dL 74-106 H Performed by certified box printing machine operator at [facility] BASIC METABOLIC [id number] 08:10:00* Test Item Value Reference Range Interpretation [...] CA) 8.5 mg/dL 8.5-10.1 N BASIC METABOLIC [id number] 08:01:00* Test Item Value Reference Range Interpretation [...] CALCIUM (test code = CA) mg/dL 8.5-10.1 [id number] 20:13:00* Test Item Value Reference Range Interpretation Comments GLUBED (test code = GLUBED) 280 mg/dL 74-106 H Performed by certified box printing machine operator at [facility] URINALYSIS [id number] 18:55:00* Test Item Value Reference Range Interpretation [...] code = MUCU) FEW #/LPF FEW BY GOMEZ COMMENTS: urineUrine Source? [id number] 16:55:00* Test Item Value Reference Range Interpretation Comments GLUBED (test code = GLUBED) 151 mg/dL 74-106 H Performed by certified box printing machine operator at [facility] [id number] 15:39:00* Test Item Value Reference Range Interpretation Comments GLUBED (test code = GLUBED) 264 mg/dL 74-106 H Performed by certified box printing machine operator at [facility] CBC W/AUTO [id number] 11:09:00* Test Item Value Reference Range Interpretation [...] = MDIFF) NO, ONLY SCAN NEEDED DIFFERENTIAL [id number] 11:09:00* Test Item Value Reference Range Interpretation Comments STAIN ACCEPTABILITY (test code = STN ACCEPTABLE) STAIN ACCEPTABLE HYPOCHROMIA (test code = HYPO) 1+ ANISOCYTOSIS (test code = ANISO) 1+ PLATELET ESTIMATE (test code = PLTEST) SLIGHTLY DECREASED PLATELET MORPHOLOGY (test code = PLTMORPH) NORMAL CBC W/AUTO [id number] 10:19:00* Test Item Value Reference Range Interpretation [...] = MDIFF) NO, ONLY SCAN NEEDED DIFFERENTIAL [id number] 10:19:00* Test Item Value Reference Range Interpretation Comments STAIN ACCEPTABILITY (test code = STN ACCEPTABLE) MORPHOLOGY COMMENT (test code = MOC) PLATELET ESTIMATE (test code = PLTEST) PLATELET MORPHOLOGY (test code = PLTMORPH) CBC W/AUTO [id number] 10:15:00* Test Item Value Reference Range Interpretation [...] = MDIFF) NO, ONLY SCAN NEEDED DIFFERENTIAL [id number] 10:15:00* Test Item Value Reference Range Interpretation Comments STAIN ACCEPTABILITY (test code = STN ACCEPTABLE) CABOT RINGS (test code = CAB) MORPHOLOGY COMMENT (test code = MOC) PLATELET ESTIMATE (test code = PLTEST) PLATELET MORPHOLOGY (test code = PLTMORPH) CBC W/AUTO [id number] 10:15:00* Test Item Value Reference Range Interpretation [...] = MDIFF) NO, ONLY SCAN NEEDED DIFFERENTIAL [id number] 10:15:00* Test Item Value Reference Range Interpretation Comments STAIN ACCEPTABILITY (test code = STN ACCEPTABLE) MORPHOLOGY COMMENT (test code = MOC) PLATELET ESTIMATE (test code = PLTEST) PLATELET MORPHOLOGY (test code = PLTMORPH) CBC W/AUTO [id number] 10:15:00* Test Item Value Reference Range Interpretation [...] = MDIFF) NO, ONLY SCAN NEEDED DIFFERENTIAL [id number] 10:15:00* Test Item Value Reference Range Interpretation Comments STAIN ACCEPTABILITY (test code = STN ACCEPTABLE) CABOT RINGS (test code = CAB) MORPHOLOGY COMMENT (test code = MOC) PLATELET ESTIMATE (test code = PLTEST) PLATELET MORPHOLOGY (test code = PLTMORPH) CBC W/AUTO [id number] 10:00:00* Test Item Value Reference Range Interpretation [...] # (test code = BA#) K/mm3 0.0-0.2 [id number] 08:44:00* Test Item Value Reference Range Interpretation Comments GLUBED (test code = GLUBED) 305 mg/dL 74-106 H Performed by certified box printing machine operator at [facility] BASIC METABOLIC [id number] 08:31:00* Test Item Value Reference Range Interpretation [...] code = CA) 8.0 mg/dL 8.5-10.1 L [id number] 20:37:00* Test Item Value Reference Range Interpretation Comments GLUBED (test code = GLUBED) 200 mg/dL 74-106 H Performed by certified box printing machine operator at [facility] - XR CHEST 1 [id number] 18:15:00 FAX: Benjamin Francis MD [phone] [place]: St: ADM Name: KALYANI CATES [facility] : [birth year] 57 Age/S: 64/F [address] [facility] Unit #: [id number] Loc: [address] [address] Phys: Benjamin Masters MD Acct: [id number] Dis Date: Status: ADM IN PHONE #: [phone] Exam Date: 09/03/2019 1615 FAX #: [phone] Reason: CHF EXAMS: CPT CODE: [id number] XR CHEST 1 V 97006 EXAM: Chest x-ray, one view; INFORMATION: CHF, hypoglycemia; IMPRESSION: 1. Mild cardiomegaly; otherwise, no evidence of active cardiopulmonary disease. 2. No significant change compared with a study from August 28, 2019. Location code: [facility] at 1815 Reported and signed by: Jc Bravo M.D. CC: Benjamin Masters Technologist: WENDIE COMER, RT(R); Jacquie Alcantara RT(R) [facility] Date/Time/By: 09/03/2019 (1814) : By: LeanneGRW Orig Print D/T: S: 09/03/2019 (1817) PAGE 1 Signed Report [id number] 17:28:00* Test Item Value Reference Range Interpretation Comments GLUBED (test code = GLUBED) 103 mg/dL 74-106 N Performed by certified box printing machine operator at [facility] [id number] 12:43:00* Test Item Value Reference Range Interpretation Comments GLUBED (test code = GLUBED) 201 mg/dL 74-106 H Performed by certified box printing machine operator at [facility] B-TYPE NATRIURETIC [id number] 12:25:00* Test Item Value Reference Range Interpretation Comments B-TYPE NATRIURETIC PEPTIDE (test code = BNP) 20.62 pgram/mL 0-100 N SPECIMEN COMMENTS: add to AM labsBASIC METABOLIC [id number] 09:49:00* Test Item Value Reference Range Interpretation [...] code = CA) 8.3 mg/dL 8.5-10.1 L [id number] 08:23:00* Test Item Value Reference Range Interpretation Comments GLUBED (test code = GLUBED) 242 mg/dL 74-106 H Performed by certified box printing machine operator at [facility] [id number] 20:51:00* Test Item Value Reference Range Interpretation Comments GLUBED (test code = GLUBED) 155 mg/dL 74-106 H Performed by certified box printing machine operator at [facility] [id number] 16:25:00* Test Item Value Reference Range Interpretation Comments GLUBED (test code = GLUBED) 245 mg/dL 74-106 H Performed by certified box printing machine operator at [facility] [id number] 14:55:00* Test Item Value Reference Range Interpretation Comments MAGNESIUM (test code = MAG) 1.8 mg/dL 1.8-2.4 N COMPREHENSIVE METABOLIC [id number] 13:39:00* Test Item Value Reference Range Interpretation [...] due to change in reagent. COMPREHENSIVE METABOLIC [id number] 13:31:00* Test Item Value Reference Range Interpretation [...] code = ALKP) IUnit/L 45-117 CBC W/AUTO [id number] 12:41:00* Test Item Value Reference Range Interpretation [...] NRBC#) 0.00 K/mm3 0.0-0.1 N CBC W/AUTO [id number] 12:32:00* Test Item Value Reference Range Interpretation [...] # (test code = BA#) K/mm3 0.0-0.2 [id number] 11:40:00* Test Item Value Reference Range Interpretation Comments GLUBED (test code = GLUBED) 252 mg/dL 74-106 H Performed by certified box printing machine operator at [facility] [id number] 08:02:00* Test Item Value Reference Range Interpretation Comments GLUBED (test code = GLUBED) 252 mg/dL 74-106 H Performed by certified box printing machine operator at [facility] [id number] 20:04:00* Test Item Value Reference Range Interpretation Comments GLUBED (test code = GLUBED) 183 mg/dL 74-106 H Performed by certified box printing machine operator at [facility] [id number] 18:42:00* Test Item Value Reference Range Interpretation Comments GLUBED (test code = GLUBED) 218 mg/dL 74-106 H Performed by certified box printing machine operator at [facility] [id number] 12:24:00* Test Item Value Reference Range Interpretation Comments GLUBED (test code = GLUBED) 281 mg/dL 74-106 H Performed by certified box printing machine operator at [facility] [id number] 08:29:00* Test Item Value Reference Range Interpretation Comments GLUBED (test code = GLUBED) 293 mg/dL 74-106 H Performed by certified box printing machine operator at [facility] [id number] 20:21:00* Test Item Value Reference Range Interpretation Comments GLUBED (test code = GLUBED) 236 mg/dL 74-106 H Performed by certified box printing machine operator at [facility] [id number] 17:17:00* Test Item Value Reference Range Interpretation Comments GLUBED (test code = GLUBED) 311 mg/dL 74-106 H Performed by certified box printing machine operator at [facility] [id number] 12:22:00* Test Item Value Reference Range Interpretation Comments GLUBED (test code = GLUBED) 230 mg/dL 74-106 H Performed by certified box printing machine operator at [facility] [id number] 08:34:00* Test Item Value Reference Range Interpretation Comments GLUBED (test code = GLUBED) 301 mg/dL 74-106 H Performed by certified box printing machine operator at [facility] BASIC METABOLIC [id number] 06:15:00* Test Item Value Reference Range Interpretation [...] CA) 8.6 mg/dL 8.5-10.1 N BASIC METABOLIC [id number] 06:12:00* Test Item Value Reference Range Interpretation [...] code = CA) 8.6 mg/dL 8.5-10.1 N [id number] 20:44:00* Test Item Value Reference Range Interpretation Comments GLUBED (test code = GLUBED) 304 mg/dL 74-106 H Performed by certified box printing machine operator at [facility] [id number] 17:42:00* Test Item Value Reference Range Interpretation Comments MAGNESIUM (test code = MAG) 1.8 mg/dL 1.8-2.4 N [id number] 17:25:00* Test Item Value Reference Range Interpretation Comments GLUBED (test code = GLUBED) 196 mg/dL 74-106 H Performed by certified box printing machine operator at [facility] [id number] 12:10:00* Test Item Value Reference Range Interpretation Comments GLUBED (test code = GLUBED) 223 mg/dL 74-106 H Performed by certified box printing machine operator at [facility] BASIC METABOLIC [id number] 07:59:00* Test Item Value Reference Range Interpretation [...] code = CA) 8.6 mg/dL 8.5-10.1 N [id number] 07:59:00* Test Item Value Reference Range Interpretation Comments MAGNESIUM (test code = MAG) 1.8 mg/dL 1.8-2.4 N [id number] 07:54:00* Test Item Value Reference Range Interpretation Comments GLUBED (test code = GLUBED) 232 mg/dL 74-106 H Performed by certified box printing machine operator at [facility] BASIC METABOLIC [id number] 07:35:00* Test Item Value Reference Range Interpretation [...] CALCIUM (test code = CA) mg/dL 8.5-10.1 [id number] 07:35:00* Test Item Value Reference Range Interpretation Comments MAGNESIUM (test code = MAG) mg/dL 1.8-2.4 [id number] 20:33:00* Test Item Value Reference Range Interpretation Comments GLUBED (test code = GLUBED) 161 mg/dL 74-106 H Performed by certified box printing machine operator at [facility] [id number] 16:15:00* Test Item Value Reference Range Interpretation Comments GLUBED (test code = GLUBED) 137 mg/dL 74-106 H Performed by certified box printing machine operator at [facility] [id number] 15:50:00 RUN DATE: 08/29/19 [facility] PAGE 1 RUN TIME: 1550 Specimen Inqui ry RUN USER: INTERFACE PATIENT: KALYANI TALAVERA ACCT #: [id number] LOC: [place] U #: [id number] AGE/SX: 64/F ROOM: [facility] RE08/29/19[facility] DR: Benjamin Masters MD : 57 BED: A DIS: STATUS: ADM IN TLOC: SPEC #: [id number] RECD: 08/28/19 STATUS: SHREYA RE #: [id number] MARILEE: 08/27/19- [facility] DR: Emil Martinez MD ENTERED: 08/28/19 SP TYPE: STOMACH OTHR DR: Faizan Barron i, MD, Kuldip Kumar MD Ojeas, Harry Silvio MDORDERED: GROSS COPIES TO: Emil Martinez MD [address] [place] [address] Faizan Jennings MD [address], [address] [place], [place] [address] Harry Gutierrez MD [address] [facility] [address] [place] [address] Kb Bradford MD [address] [address] PROCEDURES: GROSS (08/29/19- 145) TISSUES: ANTRAL BIOPSY - H-PYLORI CLINICAL HISTORY COLLECTION DATE: 08/27/19 DYSPHAGIA FINAL DIAGNOSIS Antrum, biop sy: REACTIVE GASTROPATHY NO INTESTINAL METAPLASIA SEEN NEGA TIVE FOR HELICOBACTER PYLORI BY GIEMSA STAIN NEGATIVE FOR MALIGNANCY CONTINUED ON NEXT PAGE RUN DATE : 08/29/19 [facility] [place] PAGE 2 RUN TIME: 1550 Specimen Inquiry RUN USER: INTERFACE SPEC #: [id number] PATIENT: KALYANI TALAVERA #V [id number] (Continued) FINAL DIAGNOSIS (Continue d) BRITTNI/corby Simpson [address], [address] MACROSCOPIC The specimen is re ceived in formalin, labeled with the patient's name, and identified as "antrum bx", and consists of two gutierrez biopsies measuring 0.25 cm each. RADHA SS PERFORMED AT [facility] B[employer] AND CELLOPHANER HELPER MACHINE S [address] [place] [address] [phone] MICROS COPIC All of the stains, including any controls performed, stain beverlyiat evert. MICROSCOPIC PERFORMED AT [facility] [address] [place] [address] ([phone] PERFORMING SITE Diagnosis performed at: [facility] [address] [facility] [place] [address] Signed SIGNATURE ON FILE Petty Lowe MD 08/29/19 1550 END OF REPORT [id number] 11:43:00* Test Item Value Reference Range Interpretation Comments GLUBED (test code = GLUBED) 318 mg/dL 74-106 H Performed by certified box printing machine operator at [facility] BASIC METABOLIC [id number] 09:27:00* Test Item Value Reference Range Interpretation [...] CA) 8.5 mg/dL 8.5-10.1 N BASIC METABOLIC [id number] 09:17:00* Test Item Value Reference Range Interpretation [...] CALCIUM (test code = CA) mg/dL 8.5-10.1 [id number] 08:08:00* Test Item Value Reference Range Interpretation Comments GLUBED (test code = GLUBED) 291 mg/dL 74-106 H Performed by certified box printing machine operator at [facility] [id number] 20:52:00* Test Item Value Reference Range Interpretation Comments GLUBED (test code = GLUBED) 267 mg/dL 74-106 H Performed by certified box printing machine operator at [facility] [id number] 19:40:00* Test Item Value Reference Range Interpretation Comments TROPONIN-I (test code = TROPI) <0.015 ng/mL 0-0.045 N SPECIMEN COMMENTS: [id number] 19:27:00* Test Item Value Reference Range Interpretation Comments MAGNESIUM (test code = MAG) 1.6 mg/dL 1.8-2.4 L - XR ANKLE 3 + V [id number] 16:26:00 FAX: Benjamin Francis MD [phone] [place]: [address]: [facility]: [facility] Age/S: 64/F [address] Unit #: [id number] Loc: V[address] [address] Phys: Benjamin Masters MD Acct: [id number] Dis Date: Status: ADM IN PHONE #: [phone] Exam Date: 08/28/2019 1600 FAX #: [phone] Reason: Left ankle injury EXAMS: CPT CODE: [id number] XR ANKLE 3 + V LT [address]205 REASON FOR EXAM: Left ankle injury EXAM ORDER DATE: 08/28/2019 12:00 AM Ordering: Benjamin Masters MD Attending:Benjamin Masters MD Location:[facility] PROCEDURE: - XR ANKLE 3 + V LT FINDIN GS: 3 views of the left ankle were obtained. The osseous structures are un remarkable in size and shape. The joint spaces are maintained. No evidence of fracture. The syndesmosis is intact. IMPRESSION: Mild soft tissue swelling in the lateral malleolus. at 5254 Reported and signed by: Pelon Moreno M.D. CC: Benjamin Masters Technologist: Jacquie Alcantara RT(R) Trnscrd Date/Time/By: 08/28/2019 (2894) : By: Jaylan.VTL Orig P rint D/T: S: 08/28/2019 (7813) PAGE 1 Signed Report [id number] 16:25:00* Test Item Value Reference Range Interpretation Comments GLUBED (test code = GLUBED) 241 mg/dL 74-106 H Performed by certified box printing machine operator at [facility] - XR CHEST 1 [id number] 16:25:00 FAX: Benjamin Francis MD [phone] [place]: [address] St: ADM Name: KALYANI CATES [facility] : [birth year] 57 Age/S: 64/F [address] Unit #: [id number] Loc: V.[address] [address] Phys: Benjamin Masters MD Acct: [id number] Dis Date: Status: ADM IN PHONE #: [phone] Exam Date: 08/28/2019 1600 FAX #: [phone] Reason: CHF EXAMS: CPT CODE: [id number] XR CHEST 1 V 25616 REASON FOR EXAM: CHF EXAM ORDER DATE: 08/28/2019 12:00 AM Ordering: Benjamin Masters MD Attending:Benjamin Masters MD Location:[facility] CEDURE: - XR CHEST 1 V COMPARISON: 08/27/2019 FINDING S: Portable AP frontal view of the chest obtained at 3:59 PM shows clear lungs without evidence of consolidation. There is no evidence of effusion. The heart size is minimally enlarged. Pulmonary vasculatures are minimally congested. IMPRESSION: Interval improvement in the congestive heart failure. at 4525 Reported and signed by: Pelon Moreno M.D. CC: Benjamin Masters Technestrella st: Jacquie Alcantara RT(R) Trnscrd Date/Time/By: 08/28/2019 (3612) : By: Jaylan.VTL Orig Print D/T: S: 08/28/2019 (3789) PAGE 1 Signed Report [id number] 11:24:00* Test Item Value Reference Range Interpretation Comments GLUBED (test code = GLUBED) 289 mg/dL 74-106 H Performed by certified box printing machine operator at [facility] [id number] 07:51:00* Test Item Value Reference Range Interpretation Comments GLUBED (test code = GLUBED) 345 mg/dL 74-106 H Performed by certified box printing machine operator at [facility] BASIC METABOLIC [id number] 06:05:00* Test Item Value Reference Range Interpretation [...] CA) 8.4 mg/dL 8.5-10.1 L CBC W/AUTO [id number] 06:00:00* Test Item Value Reference Range Interpretation [...] = MDIFF) NO, ONLY SCAN NEEDED DIFFERENTIAL [id number] 06:00:00* Test Item Value Reference Range Interpretation Comments STAIN ACCEPTABILITY (test code = STN ACCEPTABLE) STAIN ACCEPTABLE ANISOCYTOSIS (test code = ANISO) 2+ MICROCYTOSIS (test code = MICR) 2+ PLATELET ESTIMATE (test code = PLTEST) ADEQUATE PLATELET MORPHOLOGY (test code = PLTMORPH) NORMAL BASIC METABOLIC [id number] 05:57:00* Test Item Value Reference Range Interpretation [...] code = CA) mg/dL 8.5-10.1 CBC W/AUTO [id number] 05:35:00* Test Item Value Reference Range Interpretation [...] = MDIFF) NO, ONLY SCAN NEEDED DIFFERENTIAL [id number] 05:35:00* Test Item Value Reference Range Interpretation Comments STAIN ACCEPTABILITY (test code = STN ACCEPTABLE) CABOT RINGS (test code = CAB) MORPHOLOGY COMMENT (test code = MOC) PLATELET ESTIMATE (test code = PLTEST) PLATELET MORPHOLOGY (test code = PLTMORPH) CBC W/AUTO [id number] 05:35:00* Test Item Value Reference Range Interpretation [...] = MDIFF) NO, ONLY SCAN NEEDED DIFFERENTIAL [id number] 05:35:00* Test Item Value Reference Range Interpretation Comments STAIN ACCEPTABILITY (test code = STN ACCEPTABLE) MORPHOLOGY COMMENT (test code = MOC) PLATELET ESTIMATE (test code = PLTEST) PLATELET MORPHOLOGY (test code = PLTMORPH) CBC W/AUTO [id number] 05:35:00* Test Item Value Reference Range Interpretation [...] = MDIFF) NO, ONLY SCAN NEEDED DIFFERENTIAL [id number] 05:35:00* Test Item Value Reference Range Interpretation Comments STAIN ACCEPTABILITY (test code = STN ACCEPTABLE) MORPHOLOGY COMMENT (test code = MOC) PLATELET ESTIMATE (test code = PLTEST) PLATELET MORPHOLOGY (test code = PLTMORPH) CBC W/AUTO [id number] 05:35:00* Test Item Value Reference Range Interpretation [...] = MDIFF) NO, ONLY SCAN NEEDED DIFFERENTIAL [id number] 05:35:00* Test Item Value Reference Range Interpretation Comments STAIN ACCEPTABILITY (test code = STN ACCEPTABLE) CABOT RINGS (test code = CAB) MORPHOLOGY COMMENT (test code = MOC) PLATELET ESTIMATE (test code = PLTEST) PLATELET MORPHOLOGY (test code = PLTMORPH) [id number] 20:01:00* Test Item Value Reference Range Interpretation Comments GLUBED (test code = GLUBED) 220 mg/dL 74-106 H Performed by certified box printing machine operator at [facility] [id number] 19:18:00* Test Item Value Reference Range Interpretation Comments GLYCOSYLATED HEMOGLOBIN (HA1C) (test code = GLYHGB) 9.6 % HbA1 SUGGESTED DIAGNOSIS: HbA1C (%) Diabetic >6.4Prediabetes 5.7 - 6.4Normal <5.7 ESTIMATED AVERAGE GLUCOSE (test code = EAG) 229 MG/DL - XR CHEST 1 [id number] 18:54:00 FAX: Loan Cortez NP [phone] [place]: [address] St: ADM FAX: Benjamin Francis MD [phone] [facility] 1955 Age/S: 64/F [address] Unit #: [id number] Loc: [address] [address] Phys: Loan Cortez NP Acct: [id number] Dis Date: Status: ADM IN PHONE #: [phone] Exam Date: 08/27/2019 1845 FAX #: [phone] Reason: shortness of breath EXAMS: CPT CODE: [id number] XR CHEST 1 V 80232 REASON FOR EXAM: shortness of breath EXAM [...] Loan Perez NP; Benjamin Masters Technologist: Frances Leyva(Megan) Trnscrd Date/Time/By: 08/27/2019 (1853) : By: Jaylan.VTL Orig Print D/T: S: 08/27/2019 (1856) PAGE 1 Signed Report [id number] 18:35:00* Test Item Value Reference Range Interpretation Comments GLUBED (test code = GLUBED) 201 mg/dL 74-106 H Performed by certified box printing machine operator at [facility] T4 [id number] 18:03:00* Test Item Value Reference Range Interpretation Comments T4 FREE (test code = T4F) 1.10 ng/dL 0.76-1.46 N THYROID STIMULATING [id number] 18:03:00* Test Item Value Reference Range Interpretation Comments THYROID STIMULATING HORMONE (test code = TSH) 1.260 uIU/mL 0.36-3.7 4 N TSH REFERENCE RANGES: EUTHYROID: 0.35 - 4.3 mIU/mL HYPO : > 5.5 mIU/mL HYPER : < 0.35 mIU/mL [id number] 16:50:00* Test Item Value Reference Range Interpretation Comments GLUBED (test code = GLUBED) 217 mg/dL 74-106 H Performed by certified box printing machine operator at [facility] [id number] 12:15:00* Test Item Value Reference Range Interpretation Comments GLUBED (test code = GLUBED) 272 mg/dL 74-106 H Performed by certified box printing machine operator at [facility] [id number] 08:14:00* Test Item Value Reference Range Interpretation Comments GLUBED (test code = GLUBED) 322 mg/dL 74-106 H Performed by certified box printing machine operator at [facility] [id number] 04:01:00* Test Item Value Reference Range Interpretation Comments GLUBED (test code = GLUBED) 329 mg/dL 74-106 H Performed by certified box printing machine operator at [facility] CBC W/AUTO [id number] 23:42:00* Test Item Value Reference Range Interpretation [...] = MDIFF) NO, ONLY SCAN NEEDED DIFFERENTIAL [id number] 23:42:00* Test Item Value Reference Range Interpretation Comments STAIN ACCEPTABILITY (test code = STN ACCEPTABLE) STAIN ACCEPTABLE ANISOCYTOSIS (test code = ANISO) 2+ MICROCYTOSIS (test code = MICR) 2+ PLATELET ESTIMATE (test code = PLTEST) ADEQUATE PLATELET MORPHOLOGY (test code = PLTMORPH) NORMAL COMPREHENSIVE METABOLIC [id number] 23:14:00* Test Item Value Reference Range Interpretation Comments SODIUM (test code = NA) 137 mmol/L 136-145 N POTASSIUM (test code = K) 4.2 mmol/L 3.5-5.1 N CHLORIDE (test code = CL) 101.0 mmol/L 98-107 N CARBON DIOXIDE (test code = CO2) 29.0 mmol/L 21-32 N ANION GAP (test code = GAP) 11.2 10-20 N GLUCOSE (test code = GLU) 628 mg/dL 74-106 [facility] levar called to [id number] by V.[email or web address] 08/26/19 2313Critical results verified and [...] range due to change in reagent. URINALYSIS [id number] 23:08:00* Test Item Value Reference Range Interpretation [...] #/HPF NONE Urine Source? Clean CatchCOMPREHENSIVE METABOLIC [id number] 23:02:00* Test Item Value Reference Range Interpretation [...] code = ALKP) IUnit/L 45-117 CBC W/AUTO [id number] 22:58:00* Test Item Value Reference Range Interpretation [...] = MDIFF) NO, ONLY SCAN NEEDED DIFFERENTIAL [id number] 22:58:00* Test Item Value Reference Range Interpretation Comments STAIN ACCEPTABILITY (test code = STN ACCEPTABLE) CABOT RINGS (test code = CAB) MORPHOLOGY COMMENT (test code = MOC) PLATELET ESTIMATE (test code = PLTEST) PLATELET MORPHOLOGY (test code = PLTMORPH) CBC W/AUTO [id number] 22:58:00* Test Item Value Reference Range Interpretation [...] = MDIFF) NO, ONLY SCAN NEEDED DIFFERENTIAL [id number] 22:58:00* Test Item Value Reference Range Interpretation Comments STAIN ACCEPTABILITY (test code = STN ACCEPTABLE) CABOT RINGS (test code = CAB) MORPHOLOGY COMMENT (test code = MOC) PLATELET ESTIMATE (test code = PLTEST) PLATELET MORPHOLOGY (test code = PLTMORPH) CBC W/AUTO [id number] 22:58:00* Test Item Value Reference Range Interpretation [...] = MDIFF) NO, ONLY SCAN NEEDED DIFFERENTIAL [id number] 22:58:00* Test Item Value Reference Range Interpretation Comments STAIN ACCEPTABILITY (test code = STN ACCEPTABLE) MORPHOLOGY COMMENT (test code = MOC) PLATELET ESTIMATE (test code = PLTEST) PLATELET MORPHOLOGY (test code = PLTMORPH) CBC W/AUTO [id number] 22:58:00* Test Item Value Reference Range Interpretation [...] = MDIFF) NO, ONLY SCAN NEEDED DIFFERENTIAL [id number] 22:58:00* Test Item Value Reference Range Interpretation Comments STAIN ACCEPTABILITY (test code = STN ACCEPTABLE) CABOT RINGS (test code = CAB) MORPHOLOGY COMMENT (test code = MOC) PLATELET ESTIMATE (test code = PLTEST) PLATELET MORPHOLOGY (test code = PLTMORPH) VENOUS BLOOD [id number] 22:36:00* Test Item Value Reference Range Interpretation [...] by Kobi Rincon 22:17 - 08/26/2019; by H TONY MACHINE I COREMAKER METHEMOGLOBIN (test code = METHGB) 0.1 % 0.0-1.50 N BASIC METABOLIC [id number] 14:12:00* Test Item Value Reference Range Interpretation [...] CA) 8.7 mg/dL 8.5-10.1 N BASIC METABOLIC [id number] 14:06:00* Test Item Value Reference Range Interpretation [...] CA) 8.7 mg/dL 8.5-10.1 N CBC W/AUTO [id number] 13:33:00* Test Item Value Reference Range Interpretation [...] K/mm3 0.0-0.1 N - CT C-SPINE W/O [id number] 08:02:00 Name: KALYANI TALAVERA [facility] : 1955 Age/S: 64 / [facility] [address] [facility] [id number] Loc: [place] [address] Phys: Thelma Loyd DO Acct: [id number] Dis Date: Status: REG ER PHONE #: [phone] Exam Date: 08/06/2019 0754 FAX #: [phone] Reason: Neck Pain EXAMS: CPT CODE: [id number] CT C-SPINE W/O CONTRAST 67009 HISTORY: Neck Pain, status post fall TECHNIQUE: [...] RT(R),(MR),(CT) CTDI: DLP: Trnscb Date/Time: 08/06/2019 (0802) AkiP1 Orig Print D/T: S: 08/06/2019 (0805) PAGE 1 Signed Report BASIC METABOLIC [id number] 07:06:00* Test Item Value Reference Range Interpretation [...] CA) 9.1 mg/dL 8.5-10.1 N BASIC METABOLIC [id number] 07:02:00* Test Item Value Reference Range Interpretation [...] code = CA) mg/dL 8.5-10.1 CBC W/O [id number] 06:41:00* Test Item Value Reference Range Interpretation [...] fL 6.7-11.0 N - CT C-SPINE W/O [id number] 06:25:00 Name: KALYANI TALAVERA [facility] : 1955 Age/S: 64 / F [address] [facility] Unit #: [id number] Loc: [place] [address] Phys: EvertThelma DO Acct: [id number] Dis Date: Status: REG ER PHONE #: [phone] Exam Date: 08/06/2019 0605 FAX #: [phone] Reason: Neck Pain EXAMS: CPT CODE: [id number] CT C-SPINE W/O CONTRAST 87348 EXAM: - CT C-SPINE W/O CONTRAST HISTORY: [...] MERCADO, RT CTDI: DLP: Trnscb Date/Time: 08/06/2019 (06 25) t.[email or web address].CB5 Orig Print D/T: S: 08/06/2019 (0629) P AGE 2 Signed Report - CT MAXIFAC W/O [id number] 06:21:00 Name: KALYANI TALAVERA [facility] : 1955 Age/S: 64 / F [address] Unit #: [id number] Loc: [place] [address] Phys: Thelma Loyd DO Acct: [id number] Dis Date: Status: REG ER PHONE #: [phone] Exam Date: 08/06/2019 06 FAX #: [phone] Reason: TRAUMA EXAMS: CPT CODE: [id number] CT MAXIFAC W/O CNT 16210 EXAM: - CT MAXIFAC W/O CNT HISTORY: [...] of the orbital rims or cabrera, sinus cabrera, zygomatic arches, nasal bone, anterior nasal spine, [...] (620) Peggy5 Orig Print D/T: S: 08/06/2019 (9934) PAGE 1 Signed Report - CT HEAD/BRAIN W/O [id number] 06:20:00 Name: KALYANI TALAVERA [facility] : 1955 Age/S: 64 / F [address] [facility] Unit #: [id number] Loc: [place] [address] Phys: Thelma Loyd Acct: [id number] Dis Date: Status: REG ER PHONE #: [phone] Exam Date: 08/06/201959 FAX #: [phone] Reason: HEADACHE EXAMS: CPT CODE: [id number] CT HEAD/BRAIN W/O CONT 44813 EXAM: - CT HEAD/BRAIN W/O CONT Location [...] 1 Signed Report (CONTINUED) Name: KALYANI MOSES [facility] : 1955 Age/S: 64 / F [address] Unit #: [id number] L oc: [place] [address] Phys: Thelma Loyd DO Acct: [id number] Dis Date: Status: REG ER PHONE #: [phone] Exam Date: 08/06/2019 0559 FAX #: [phone] Malinda son: HEADACHE EXAMS: CPT CODE: [id number] CT HEAD/BRAIN W/O CONT 40001 <Continued> CC: Thelma Loyd DO; Benjamin Masters Technologist:RT EDUARDO CTDI: DLP: Trnscb Date/Time: 08/06/2019 (619) t.[email or web address].CB5 Orig Print D/T: S: 08/06/2019 (0623) PAGE 2 Signed Report BASIC METABOLIC [id number] 07:49:00* Test Item Value Reference Range Interpretation [...] code = CA) 8.7 mg/dL 8.5-10.1 N [id number] 06:05:00* Test Item Value Reference Range Interpretation Comments GLUBED (test code = GLUBED) 181 mg/dL 74-106 H Performed by certified box printing machine operator at [facility] [id number] 20:37:00* Test Item Value Reference Range Interpretation Comments GLUBED (test code = GLUBED) 285 mg/dL 74-106 H Performed by certified box printing machine operator at [facility] [id number] 17:15:00* Test Item Value Reference Range Interpretation Comments GLUBED (test code = GLUBED) 84 mg/dL 74-106 N Performed by certified box printing machine operator at [facility] [id number] 17:15:00* Test Item Value Reference Range Interpretation Comments GLUBED (test code = GLUBED) 166 mg/dL 74-106 H Performed by certified box printing machine operator at [facility] BASIC METABOLIC [id number] 07:13:00* Test Item Value Reference Range Interpretation [...] CA) 8.7 mg/dL 8.5-10.1 N BASIC METABOLIC [id number] 07:09:00* Test Item Value Reference Range Interpretation [...] code = CA) mg/dL 8.5-10.1 CBC W/AUTO [id number] 06:42:00* Test Item Value Reference Range Interpretation [...] DIFF REQUIRED (test code = MDIFF) NO [id number] 06:33:00* Test Item Value Reference Range Interpretation Comments GLUBED (test code = GLUBED) 180 mg/dL 74-106 H Performed by certified box printing machine operator at [facility] [id number] 20:48:00* Test Item Value Reference Range Interpretation Comments GLUBED (test code = GLUBED) 403 mg/dL 74-106 H Performed by certified box printing machine operator at [facility] [id number] 18:00:00* Test Item Value Reference Range Interpretation Comments GLUBED (test code = GLUBED) 326 mg/dL 74-106 H Performed by certified box printing machine operator at [facility] [id number] 14:21:00* Test Item Value Reference Range Interpretation Comments GLYCOSYLATED HEMOGLOBIN (HA1C) (test code = GLYHGB) 8.9 % HbA1 SUGGESTED DIAGNOSIS: HbA1C (%) Diabetic >6.4Prediabetes 5.7 - 6.4Normal <5.7 ESTIMATED AVERAGE GLUCOSE (test code = EAG) 209 MG/DL [id number] 13:22:00* Test Item Value Reference Range Interpretation Comments GLUBED (test code = GLUBED) 222 mg/dL 74-106 H Performed by certified box printing machine operator at [facility] CBC W/AUTO [id number] 10:20:00* Test Item Value Reference Range Interpretation [...] = MDIFF) NO, ONLY SCAN NEEDED DIFFERENTIAL [id number] 10:20:00* Test Item Value Reference Range Interpretation Comments STAIN ACCEPTABILITY (test code = STN ACCEPTABLE) STAIN ACCEPTABLE MORPHOLOGY COMMENT (test code = MOC) NORMAL PLATELET ESTIMATE (test code = PLTEST) ADEQUATE PLATELET MORPHOLOGY (test code = PLTMORPH) NORMAL COMPREHENSIVE METABOLIC [id number] 10:05:00* Test Item Value Reference Range Interpretation [...] due to change in reagent. B-TYPE NATRIURETIC [id number] 09:56:00* Test Item Value Reference Range Interpretation Comments B-TYPE NATRIURETIC PEPTIDE (test code = BNP) 62.56 pgram/mL 0-100 N COMPREHENSIVE METABOLIC [id number] 09:55:00* Test Item Value Reference Range Interpretation [...] code = ALKP) IUnit/L 45-117 CBC W/AUTO [id number] 09:21:00* Test Item Value Reference Range Interpretation [...] = MDIFF) NO, ONLY SCAN NEEDED DIFFERENTIAL [id number] 09:21:00* Test Item Value Reference Range Interpretation Comments STAIN ACCEPTABILITY (test code = STN ACCEPTABLE) CABOT RINGS (test code = CAB) MORPHOLOGY COMMENT (test code = MOC) PLATELET ESTIMATE (test code = PLTEST) PLATELET MORPHOLOGY (test code = PLTMORPH) CBC W/AUTO [id number] 09:21:00* Test Item Value Reference Range Interpretation [...] = MDIFF) NO, ONLY SCAN NEEDED DIFFERENTIAL [id number] 09:21:00* Test Item Value Reference Range Interpretation Comments STAIN ACCEPTABILITY (test code = STN ACCEPTABLE) MORPHOLOGY COMMENT (test code = MOC) PLATELET ESTIMATE (test code = PLTEST) PLATELET MORPHOLOGY (test code = PLTMORPH) CBC W/AUTO [id number] 09:20:00* Test Item Value Reference Range Interpretation [...] = MDIFF) NO, ONLY SCAN NEEDED DIFFERENTIAL [id number] 09:20:00* Test Item Value Reference Range Interpretation Comments STAIN ACCEPTABILITY (test code = STN ACCEPTABLE) CABOT RINGS (test code = CAB) MORPHOLOGY COMMENT (test code = MOC) PLATELET ESTIMATE (test code = PLTEST) PLATELET MORPHOLOGY (test code = PLTMORPH) CBC W/AUTO [id number] 09:20:00* Test Item Value Reference Range Interpretation [...] = MDIFF) NO, ONLY SCAN NEEDED DIFFERENTIAL [id number] 09:20:00* Test Item Value Reference Range Interpretation Comments STAIN ACCEPTABILITY (test code = STN ACCEPTABLE) CABOT RINGS (test code = CAB) MORPHOLOGY COMMENT (test code = MOC) PLATELET ESTIMATE (test code = PLTEST) PLATELET MORPHOLOGY (test code = PLTMORPH) [id number] 06:25:00* Test Item Value Reference Range Interpretation Comments GLUBED (test code = GLUBED) 208 mg/dL 74-106 H Performed by certified box printing machine operator at [facility] [id number] 20:49:00* Test Item Value Reference Range Interpretation Comments GLUBED (test code = GLUBED) 383 mg/dL 74-106 H Performed by certified box printing machine operator at [facility] [id number] 20:49:00* Test Item Value Reference Range Interpretation Comments GLUBED (test code = GLUBED) 421 mg/dL 74-106 H Performed by certified box printing machine operator at [facility] - XR CHEST 1 [id number] 16:23:00 FAX: Alfa Moscoso MD [phone] [place]: B St: [facility] FAX: Benjamin Francis MD [phone] Name: KALYANI TALAVERA [facility] : 1955 Age/S: 64/F [address] [facility] Unit #: [id number] Loc: [place] [address] Phys: Alfa Cassidy MD Acct: [id number] Dis Date: Status: ADM IN PHONE #: [phone] Exam Date: 06/29/2019 1600 FAX #: [phone] Reason: CHF EXAMS: CPT CODE: [id number] XR CHEST 1 V 76057 HISTORY: CHF. COMPARISON: June 28, 2019. 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 at [facility] [id number] 06:19:00* Test Item Value Reference Range Interpretation Comments GLUBED (test code = GLUBED) 339 mg/dL 74-106 H Performed by certified box printing machine operator at [facility] [id number] 00:36:00* Test Item Value Reference Range Interpretation Comments GLUBED (test code = GLUBED) 454 mg/dL 74-106 H Performed by certified box printing machine operator at [facility] [id number] 20:49:00* Test Item Value Reference Range Interpretation Comments GLUBED (test code = GLUBED) 480 mg/dL 74-106 H Performed by certified box printing machine operator at [facility] [id number] 18:21:00* Test Item Value Reference Range Interpretation Comments GLUBED (test code = GLUBED) 388 mg/dL 74-106 H Performed by certified box printing machine operator at [facility] URINALYSIS [id number] 11:46:00* Test Item Value Reference Range Interpretation [...] #/LPF FEW Urine Source? Clean CatchB-TYPE NATRIURETIC [id number] 10:41:00* Test Item Value Reference Range Interpretation [...] taking into account the patients history. PROTHROMBIN [id number] 09:36:00* Test Item Value Reference Range Interpretation [...] (2.5-3.5) IS PATIENT ON ANTICOAGULANTS? NTHROMBOPLASTIN TIME [id number] 09:36:00* Test Item Value Reference Range Interpretation Comments THROMBOPLASTIN TIME PARTIAL (test code = PTT) 33.1 seconds 25.0-36. 5 N IS PATIENT ON ANTICOAGULANTS? [id number] 09:36:00* Test Item Value Reference Range Interpretation [...] cirrhosis - IS PATIENT ON ANTICOAGULANTS? NLACTIC [id number] 09:31:00* Test Item Value Reference Range Interpretation Comments LACTIC ACID (test code = LACT) 0.9 mmol/L 0.4-1.9 N BASIC METABOLIC [id number] 09:23:00* Test Item Value Reference Range Interpretation [...] code = CA) 8.8 mg/dL 8.5-10.1 N [id number] 09:23:00* Test Item Value Reference Range Interpretation Comments TROPONIN-I (test code = TROPI) <0.015 ng/mL 0-0.045 N - XR CHEST 1 [id number] 08:57:00 FAX: Amish Nur Si [phone] [place]: St: REG FAX: Anastacio Burgess MD Name: KALYANI TALAVERA [facility] : 1955 Age/S: 64/F [address] Unit #: [id number] Loc: [place] [address] Phys: Anastacio Burgess MD Acct: [id number] Dis Date: Status: REG ER PHONE #: [phone] Exam Date: 06/28/2019825 FAX #: [phone] Reason: Shortness of Breath EXAMS: CPT CODE: [id number] XR CHEST 1 V 08096 REASON FOR EXAM: Shortness of Breath Exam [...] lung volumes with bibasilar subsegmental atelectasis. Location: [facility] at 0857 Reported and signed by: Dago Goodson MD CC: Lucille Land MD; Anastacio Burgess MD Technologist: Dayan Gallagher Trnmnrd Date/Time/By: 06/28/2019 (0857) : By: [email or web address] Orig Print D/T: S: 06/28/2019 (2203) PAGE 1 Signed Report VENOUS BLOOD [id number] 08:54:00* Test Item Value Reference Range Interpretation Comments VENOUS BLOOD GAS PH (test code = PHV) 7.56 7.30-7.40 HH Results called to and read back by jairo 08:52 - 06/28/2019; by kushal digital program manager VENOUS BLOOD GAS PCO2 (test code = PCO2V) 22.6 mm Hg 39.0-51.0 LL Results called to and read back by jairo 08:52 - 06/28/2019; by kushal digital program manager VENOUS BLOOD GAS PO2 (test code = [...] METHGB) 0.3 % 0.0-1.50 N CBC W/O [id number] 08:45:00* Test Item Value Reference Range Interpretation [...] code = MPV) 10.1 fL 6.7-11.0 N [id number] 16:30:00* Test Item Value Reference Range Interpretation Comments GLUBED (test code = GLUBED) 256 mg/dL 74-106 H Performed by certified box printing machine operator at [facility]2019-11-21 16:30:00* Test Item Value Reference Range Interpretation Comments GLUBED (test code = GLUBED) 277 mg/dL 74-106 H Performed by certified box printing machine operator at [facility]2019-11-21 07:50:00* Test Item Value Reference Range Interpretation Comments GLUBED (test code = GLUBED) 145 mg/dL 74-106 H Performed by certified box printing machine operator at [facility]2019-11-20 20:38:00* Test Item Value Reference Range Interpretation Comments GLUBED (test code = GLUBED) 250 mg/dL 74-106 H Performed by certified box printing machine operator at [facility] [id number] 16:19:00* Test Item Value Reference Range Interpretation Comments GLUBED (test code = GLUBED) 340 mg/dL 74-106 H Performed by certified box printing machine operator at [facility] [id number] 11:09:00* Test Item Value Reference Range Interpretation Comments GLUBED (test code = GLUBED) 102 mg/dL 74-106 N Performed by certified box printing machine operator at [facility]2019-11-20 07:20:00* Test Item Value Reference Range Interpretation Comments GLUBED (test code = GLUBED) 144 mg/dL 74-106 H Performed by certified box printing machine operator at [facility] [id number] 21:56:00* Test Item Value Reference Range Interpretation Comments GLUBED (test code = GLUBED) 328 mg/dL 74-106 H Performed by certified box printing machine operator at [facility] [id number] 16:11:00* Test Item Value Reference Range Interpretation Comments GLUBED (test code = GLUBED) 378 mg/dL 74-106 H Performed by certified box printing machine operator at [facility] [id number] 11:08:00* Test Item Value Reference Range Interpretation Comments GLUBED (test code = GLUBED) 168 mg/dL 74-106 H Performed by certified box printing machine operator at [facility] [id number] 07:29:00* Test Item Value Reference Range Interpretation Comments GLUBED (test code = GLUBED) 205 mg/dL 74-106 H Performed by certified box printing machine operator at [facility] B-TYPE NATRIURETIC [id number] 06:12:00* Test Item Value Reference Range Interpretation Comments B-TYPE NATRIURETIC PEPTIDE (test code = BNP) 86.51 pgram/mL 0-100 N COMPREHENSIVE METABOLIC [id number] 05:53:00* Test Item Value Reference Range Interpretation [...] due to change in reagent. COMPREHENSIVE METABOLIC [id number] 05:37:00* Test Item Value Reference Range Interpretation [...] code = ALKP) IUnit/L 45-117 CBC W/AUTO [id number] 05:26:00* Test Item Value Reference Range Interpretation [...] DIFF REQUIRED (test code = MDIFF) NO [id number] 02:25:00* Test Item Value Reference Range Interpretation Comments GLUBED (test code = GLUBED) 408 mg/dL 74-106 H Performed by certified box printing machine operator at [facility] [id number] 17:10:00* Test Item Value Reference Range Interpretation Comments GLUCOSE (test code = GLU) 536 mg/dL 74-106 HH Re sults called [place] [address] by V.[facility]. 06/10/19 1710Critical results verified and read back by Nurse? Y [id number] 16:05:00* Test Item Value Reference Range Interpretation Comments GLUBED (test code = GLUBED) > 500 mg/dL 74-106 HH [facility] certified box printing [facility]~ [id number] 11:05:00* Test Item Value Reference Range Interpretation Comments GLUBED (test code = GLUBED) 279 mg/dL 74-106 H Performed by certified box printing machine operator at [facility] BASIC METABOLIC [id number] 11:02:00* Test Item Value Reference Range Interpretation [...] code = CA) 8.9 mg/dL 8.5-10.1 N [id number] 11:02:00* Test Item Value Reference Range Interpretation Comments MAGNESIUM (test code = MAG) 2.0 mg/dL 1.8-2.4 N BASIC METABOLIC [id number] 10:52:00* Test Item Value Reference Range Interpretation [...] CALCIUM (test code = CA) mg/dL 8.5-10.1 [id number] 10:52:00* Test Item Value Reference Range Interpretation Comments MAGNESIUM (test code = MAG) mg/dL 1.8-2.4 [id number] 07:27:00* Test Item Value Reference Range Interpretation Comments GLUBED (test code = GLUBED) 260 mg/dL 74-106 H Performed by certified box printing machine operator at [facility] [id number] 20:43:00* Test Item Value Reference Range Interpretation Comments GLUBED (test code = GLUBED) 417 mg/dL 74-106 H Performed by certified box printing machine operator at [facility] [id number] 15:54:00* Test Item Value Reference Range Interpretation Comments GLUBED (test code = GLUBED) 389 mg/dL 74-106 H Performed by certified box printing machine operator at [facility] [id number] 12:24:00* Test Item Value Reference Range Interpretation Comments GLUBED (test code = GLUBED) 389 mg/dL 74-106 H Performed by certified box printing machine operator at [facility] [id number] 07:56:00* Test Item Value Reference Range Interpretation Comments GLUBED (test code = GLUBED) 350 mg/dL 74-106 H Performed by certified box printing machine operator at [facility] [id number] 04:10:00* Test Item Value Reference Range Interpretation Comments GLUBED (test code = GLUBED) 427 mg/dL 74-106 H Performed by certified box printing machine operator at [facility] [id number] 19:56:00* Test Item Value Reference Range Interpretation Comments GLUBED (test code = GLUBED) 384 mg/dL 74-106 H Performed by certified box printing machine operator at [facility] [id number] 16:27:00* Test Item Value Reference Range Interpretation Comments GLUBED (test code = GLUBED) 378 mg/dL 74-106 H Performed by certified box printing machine operator at [facility] [id number] 12:06:00* Test Item Value Reference Range Interpretation Comments GLUBED (test code = GLUBED) 402 mg/dL 74-106 H Performed by certified box printing machine operator at [facility] [id number] 11:11:00* Test Item Value Reference Range Interpretation Comments TROPONIN-I (test code = TROPI) <0.015 ng/mL 0-0.045 N COMMENTS TO STAPLING MACHINE OPERATOR: COLLECT 3 HOURS AFTER PREVIOUS SAMPLEURINALYSIS [id number] 08:30:00* Test Item Value Reference Range Interpretation [...] MUCU) FEW #/LPF FEW Urine Source? Clean [id number] 07:35:00* Test Item Value Reference Range Interpretation Comments TROPONIN-I (test code = TROPI) <0.015 ng/mL 0-0.045 N COMMENTS TO STAPLING MACHINE OPERATOR: COLLECT 3 HOURS AFTER PREVIOUS [id number] 06:35:00* Test Item Value Reference Range Interpretation Comments GLUBED (test code = GLUBED) 298 mg/dL 74-106 H Performed by certified box printing machine operator at [facility] BASIC METABOLIC [id number] 01:22:00* Test Item Value Reference Range Interpretation [...] CA) 8.5 mg/dL 8.5-10.1 N HEPATIC FUNCTION [id number] 01:22:00* Test Item Value Reference Range Interpretation [...] reference range due to change in reagent. [id number] 01:22:00* Test Item Value Reference Range Interpretation Comments LIPASE (test code = LIP) 143 U/L 73.0-393.0 N [id number] 01:22:00* Test Item Value Reference Range Interpretation Comments TROPONIN-I (test code = TROPI) <0.015 ng/mL 0-0.045 N BASIC METABOLIC [id number] 01:14:00* Test Item Value Reference Range Interpretation [...] code = CA) mg/dL 8.5-10.1 HEPATIC FUNCTION [id number] 01:14:00* Test Item Value Reference Range Interpretation [...] TOTAL (test code = ALKP) IUnit/L 45-117 [id number] 01:14:00* Test Item Value Reference Range Interpretation Comments LIPASE (test code = LIP) U/L 73.0-393.0 [id number] 01:14:00* Test Item Value Reference Range Interpretation Comments TROPONIN-I (test code = TROPI) ng/mL 0-0.045 B-TYPE NATRIURETIC [id number] 00:16:00* Test Item Value Reference Range Interpretation Comments B-TYPE NATRIURETIC PEPTIDE (test code = BNP) 43.43 pgram/mL 0-100 N PROTHROMBIN [id number] 23:21:00* Test Item Value Reference Range Interpretation [...] (2.5-3.5) IS PATIENT ON ANTICOAGULANTS? NTHROMBOPLASTIN TIME [id number] 23:21:00* Test Item Value Reference Range Interpretation Comments THROMBOPLASTIN TIME PARTIAL (test code = PTT) 28.8 seconds 25.0-36. 5 N IS PATIENT ON ANTICOAGULANTS? NCBC W/O [id number] 23:12:00* Test Item Value Reference Range Interpretation [...] fL 6.7-11.0 N - XR CHEST 1 [id number] 23:01:00 FAX: Amish Nur Si [phone] [place]: B St: REG FAX: Anastacio Burgess MD Name: KALYANI TALAVERA [facility] : 1955 Age/S: 64/F [address] [facility] Unit #: [id number] Loc: [place] [address] Phys: Anastacio Burgess MD Acct: [id number] Dis Date: Status: REG ER PHONE #: [phone] Exam Date: 06/07/2019 2250 FAX #: [phone] Reason: Abdominal Pain EXAMS: CPT CODE: [id number] XR CHEST 1 V 89077 EXAM: Chest x-ray, one view; INFORMATION: Vomiting; abdominal pain; FINDINGS: Increased densities of the left lung which may be due to edema or infiltrative changes. The right lung is slightly better aerated. Bilateral atelectatic changes. The heart is slightly enlarged. IMPRESSION: 1. Left pulmonary edema or possibly interstitial infiltrative changes and basilar atelectatic changes. 2. Mild cardiomegaly. Location code: [facility] at 2301 Reported and signed by: Jc Bravo M.D. CC: Lucille Nur MD; Anastacio Burgess MD Technologist: Marcelino Reid RT(R); SCOOBY PARSONS RT(R) Trnmnrd Date/Time/By: 06/07/2019 (2308) : By: Leanne GRW Orig Print D/T: S: 06/07/2019 (9032) PAGE 1 Signed Report - CT HEAD/BRAIN W/O [id number] 13:15:00 Name: KALYANI TALAVERA [facility] : 1955 Age/S: 64 / F [address] [facility] Unit #: [id number] Loc: [place] [address] Phys: Jessenia Be MD Acct: [id number] Dis Date: Status: REG ER PHONE #: [phone] Exam Date: 05/31/2019 1246 FAX #: [phone] Reason: pain, trauma EXAMS: CPT CODE: [id number] CT HEAD/BRAIN W/O CONT 35139 HISTORY: pain, trauma TECHNIQUE: Noncontrast 2.5 mm [...] is unchanged from the prior examination. Location: [facility] at 1315 Reported and signed by: Dago Goodson MD CC: Lucille Land MD; Jessenia Be MD Technologist:Kael Bhardwaj RT(R) CTDI: DLP: Trnscb Date/Time: 05/31/2019 (1315) t.SDR.RR31 Orig Print D/T: S: 05/31/2019 (2028) PAGE 1 Signed Report GLUBED 2019-05-31 12:02:00* Test Item Value Reference Range Interpretation Comments GLUBED (test code = GLUBED) 200 mg/dL 74-106 H Performed by certified box printing machine operator at [facility] [id number] 09:10:00* Test Item Value Reference Range Interpretation Comments GLUBED (test code = GLUBED) 83 mg/dL 74-106 N Performed by certified box printing machine operator at [facility] [id number] 11:47:00* Test Item Value Reference Range Interpretation Comments GLUBED (test code = GLUBED) 192 mg/dL 74-106 H Performed by certified box printing machine operator at [facility] [id number] 07:59:00* Test Item Value Reference Range Interpretation Comments GLUBED (test code = GLUBED) 164 mg/dL 74-106 H Performed by certified box printing machine operator at [facility] [id number] 21:14:00* Test Item Value Reference Range Interpretation Comments GLUBED (test code = GLUBED) 215 mg/dL 74-106 H Performed by certified box printing machine operator at [facility] [id number] 15:34:00* Test Item Value Reference Range Interpretation Comments GLUBED (test code = GLUBED) 130 mg/dL 74-106 H Performed by certified box printing machine operator at [facility] [id number] 12:10:00* Test Item Value Reference Range Interpretation Comments GLUBED (test code = GLUBED) 231 mg/dL 74-106 H Performed by certified box printing machine operator at [facility] [id number] 08:38:00* Test Item Value Reference Range Interpretation Comments GLUBED (test code = GLUBED) 173 mg/dL 74-106 H Performed by certified box printing machine operator at [facility] [id number] 20:39:00* Test Item Value Reference Range Interpretation Comments GLUBED (test code = GLUBED) 129 mg/dL 74-106 H Performed by certified box printing machine operator at [facility] [id number] 16:16:00* Test Item Value Reference Range Interpretation Comments GLUBED (test code = GLUBED) 337 mg/dL 74-106 H Performed by certified box printing machine operator at [facility] [id number] 12:15:00* Test Item Value Reference Range Interpretation Comments GLUBED (test code = GLUBED) 247 mg/dL 74-106 H Performed by certified box printing machine operator at [facility] [id number] 08:03:00* Test Item Value Reference Range Interpretation Comments GLUBED (test code = GLUBED) 170 mg/dL 74-106 H Performed by certified box printing machine operator at [facility] [id number] 20:11:00* Test Item Value Reference Range Interpretation Comments GLUBED (test code = GLUBED) 244 mg/dL 74-106 H Performed by certified box printing machine operator at [facility] [id number] 17:36:00* Test Item Value Reference Range Interpretation Comments GLUBED (test code = GLUBED) 238 mg/dL 74-106 H Performed by certified box printing machine operator at [facility] [id number] 16:06:00* Test Item Value Reference Range Interpretation Comments GLUBED (test code = GLUBED) 196 mg/dL 74-106 H Performed by certified box printing machine operator at [facility] [id number] 12:42:00* Test Item Value Reference Range Interpretation Comments GLUBED (test code = GLUBED) 292 mg/dL 74-106 H Performed by certified box printing machine operator at [facility] [id number] 09:09:00* Test Item Value Reference Range Interpretation Comments GLUBED (test code = GLUBED) 196 mg/dL 74-106 H Performed by certified box printing machine operator at [facility] [id number] 20:30:00* Test Item Value Reference Range Interpretation Comments GLUBED (test code = GLUBED) 213 mg/dL 74-106 H Performed by certified box printing machine operator at [facility] [id number] 18:23:00* Test Item Value Reference Range Interpretation Comments GLUBED (test code = GLUBED) 102 mg/dL 74-106 N Performed by certified box printing machine operator at [facility] [id number] 17:02:00* Test Item Value Reference Range Interpretation Comments GLUBED (test code = GLUBED) 181 mg/dL 74-106 H Performed by certified box printing machine operator at [facility] BASIC METABOLIC [id number] 15:17:00* Test Item Value Reference Range Interpretation [...] CA) 9.3 mg/dL 8.5-10.1 N BASIC METABOLIC [id number] 15:08:00* Test Item Value Reference Range Interpretation [...] CALCIUM (test code = CA) mg/dL 8.5-10.1 [id number] 12:53:00* Test Item Value Reference Range Interpretation Comments GLUBED (test code = GLUBED) 262 mg/dL 74-106 H Performed by certified box printing machine operator at [facility] [id number] 08:22:00* Test Item Value Reference Range Interpretation Comments GLUBED (test code = GLUBED) 198 mg/dL 74-106 H Performed by certified box printing machine operator at [facility] CBC W/AUTO [id number] 06:43:00* Test Item Value Reference Range Interpretation [...] = MDIFF) NO, ONLY SCAN NEEDED DIFFERENTIAL [id number] 06:43:00* Test Item Value Reference Range Interpretation Comments STAIN ACCEPTABILITY (test code = STN ACCEPTABLE) STAIN ACCEPTABLE MORPHOLOGY COMMENT (test code = MOC) NORMAL PLATELET ESTIMATE (test code = PLTEST) ADEQUATE PLATELET MORPHOLOGY (test code = PLTMORPH) NORMAL COMPREHENSIVE METABOLIC [id number] 05:19:00* Test Item Value Reference Range Interpretation [...] due to change in reagent. COMPREHENSIVE METABOLIC [id number] 05:11:00* Test Item Value Reference Range Interpretation [...] code = ALKP) IUnit/L 45-117 CBC W/AUTO [id number] 04:49:00* Test Item Value Reference Range Interpretation [...] = MDIFF) NO, ONLY SCAN NEEDED DIFFERENTIAL [id number] 04:49:00* Test Item Value Reference Range Interpretation Comments STAIN ACCEPTABILITY (test code = STN ACCEPTABLE) CABOT RINGS (test code = CAB) MORPHOLOGY COMMENT (test code = MOC) PLATELET ESTIMATE (test code = PLTEST) PLATELET MORPHOLOGY (test code = PLTMORPH) CBC W/AUTO [id number] 04:49:00* Test Item Value Reference Range Interpretation [...] = MDIFF) NO, ONLY SCAN NEEDED DIFFERENTIAL [id number] 04:49:00* Test Item Value Reference Range Interpretation Comments STAIN ACCEPTABILITY (test code = STN ACCEPTABLE) CABOT RINGS (test code = CAB) MORPHOLOGY COMMENT (test code = MOC) PLATELET ESTIMATE (test code = PLTEST) PLATELET MORPHOLOGY (test code = PLTMORPH) CBC W/AUTO [id number] 04:49:00* Test Item Value Reference Range Interpretation [...] = MDIFF) NO, ONLY SCAN NEEDED DIFFERENTIAL [id number] 04:49:00* Test Item Value Reference Range Interpretation Comments STAIN ACCEPTABILITY (test code = STN ACCEPTABLE) MORPHOLOGY COMMENT (test code = MOC) PLATELET ESTIMATE (test code = PLTEST) PLATELET MORPHOLOGY (test code = PLTMORPH) CBC W/AUTO [id number] 04:49:00* Test Item Value Reference Range Interpretation [...] = MDIFF) NO, ONLY SCAN NEEDED DIFFERENTIAL [id number] 04:49:00* Test Item Value Reference Range Interpretation Comments STAIN ACCEPTABILITY (test code = STN ACCEPTABLE) CABOT RINGS (test code = CAB) MORPHOLOGY COMMENT (test code = MOC) PLATELET ESTIMATE (test code = PLTEST) PLATELET MORPHOLOGY (test code = PLTMORPH) [id number] 21:00:00* Test Item Value Reference Range Interpretation Comments GLUBED (test code = GLUBED) 245 mg/dL 74-106 H Performed by certified box printing machine operator at [facility] [id number] 17:03:00* Test Item Value Reference Range Interpretation Comments GLUBED (test code = GLUBED) 110 mg/dL 74-106 H Performed by certified box printing machine operator at [facility] [id number] 13:56:00* Test Item Value Reference Range Interpretation Comments MAGNESIUM (test code = MAG) 2.4 mg/dL 1.8-2.4 N [id number] 11:32:00* Test Item Value Reference Range Interpretation Comments GLUBED (test code = GLUBED) 327 mg/dL 74-106 H Performed by certified box printing machine operator at [facility] [id number] 07:46:00* Test Item Value Reference Range Interpretation Comments GLUBED (test code = GLUBED) 294 mg/dL 74-106 H Performed by certified box printing machine operator at [facility] COMPREHENSIVE METABOLIC [id number] 05:18:00* Test Item Value Reference Range Interpretation [...] result is a direct measurement.========= THYROID STIMULATING [id number] 05:18:00* Test Item Value Reference Range Interpretation Comments THYROID STIMULATING HORMONE (test code = TSH) 2.610 uIU/mL 0.36-3.7 4 N TSH REFERENCE RANGES: EUTHYROID: 0.35 - 4.3 mIU/mL HYPO : > 5.5 mIU/mL HYPER : < 0.35 mIU/mL [id number] 05:18:00* Test Item Value Reference Range Interpretation Comments GLYCOSYLATED HEMOGLOBIN (HA1C) (test code = GLYHGB) 9.0 % HbA1 4. 8-6.0 H ESTIMATED AVERAGE GLUCOSE (test code = EAG) 212 MG/DL CBC W/AUTO [id number] 04:33:00* Test Item Value Reference Range Interpretation [...] code = BA#) K/mm3 0.0-0.2 CBC W/AUTO [id number] 04:33:00* Test Item Value Reference Range Interpretation [...] code = NRBC#) 0.00 K/mm3 0.0-0.1 N [id number] 20:34:00* Test Item Value Reference Range Interpretation Comments GLUBED (test code = GLUBED) 106 mg/dL 74-106 N Performed by certified box printing machine operator at [facility] [id number] 16:44:00* Test Item Value Reference Range Interpretation Comments GLUBED (test code = GLUBED) 290 mg/dL 74-106 H Performed by certified box printing machine operator at [facility] [id number] 16:44:00* Test Item Value Reference Range Interpretation Comments GLUBED (test code = GLUBED) 276 mg/dL 74-106 H Performed by certified box printing machine operator at [facility] T4 [id number] 16:31:00* Test Item Value Reference Range Interpretation Comments T4 FREE (test code = T4F) 1.06 ng/dL 0.76-1.46 N THYROID STIMULATING [id number] 16:31:00* Test Item Value Reference Range Interpretation Comments THYROID STIMULATING HORMONE (test code = TSH) 0.871 uIU/mL 0.36-3.7 4 N TSH REFERENCE RANGES: EUTHYROID: 0.35 - 4.3 mIU/mL HYPO : > 5.5 mIU/mL HYPER : < 0.35 mIU/mL [id number] 16:30:00* Test Item Value Reference Range Interpretation Comments GLYCOSYLATED HEMOGLOBIN (HA1C) (test code = GLYHGB) 9.8 % HbA1 4. 8-6.0 H ESTIMATED AVERAGE GLUCOSE (test code = EAG) 235 MG/DL [id number] 12:28:00* Test Item Value Reference Range Interpretation Comments GLUBED (test code = GLUBED) 282 mg/dL 74-106 H Performed by certified box printing machine operator at [facility] [id number] 11:21:00* Test Item Value Reference Range Interpretation Comments MAGNESIUM (test code = MAG) 2.3 mg/dL 1.8-2.4 N [id number] 10:04:00* Test Item Value Reference Range Interpretation Comments TROPONIN-I (test code = TROPI) <0.015 ng/mL 0-0.045 N COMMENTS TO STAPLING MACHINE OPERATOR: COLLECT 3 HOURS AFTER PREVIOUS [id number] 04:34:00* Test Item Value Reference Range Interpretation Comments TROPONIN-I (test code = TROPI) <0.015 ng/mL 0-0.045 N COMMENTS TO STAPLING MACHINE OPERATOR: COLLECT 3 HOURS AFTER PREVIOUS [id number] 04:12:00* Test Item Value Reference Range Interpretation Comments GLUBED (test code = GLUBED) 257 mg/dL 74-106 H Performed by certified box printing machine operator at [facility] - CT CHEST W/O [id number] 23:57:00 Name: KALYANI TALAVERA [facility] : 1955 Age/S: 64 / F [address] [facility] Unit #: [id number] Loc: [place] [address] Phys: Leonora Goins MD Acct: [id number] Dis Date: Status: REG ER PHONE #: [phone] Exam Date: 05/17/2019 2320 FAX #: [phone] Reason: shortneess of breath, weakness EXAMS: CPT CODE: [id number] CT CHEST W/O CONTRAST 38493 LOCATION: Q15 HISTORY: 64-year-old female who presents [...] 1 Signed Report (CONTINUED) Name: KALYANI TALAVERA [facility] : 1955 Age/S: 64 / F [address] Unit #: [id number] Loc: [place] [address] Phys: Leonora Goins MD Acct: [id number] Dis Date: S tatus: REG ER PHONE #: [phone] Exam Da te: 05/17/2019 2320 FAX #: [phone] Reason: shortn eess of breath, weakness EXAMS: CPT CODE: [id number] CT CHEST W/O CONTRAST 53534 <Continued> CC: Lucille Nur MD; Leonora Goins MD Technologist:JORDEN MERCADO, RT CTDI: DLP: Trnscb Date/Time: 05/17/2019 (0677) t.[email or web address].RLA2 Orig Print D/T: S: 05/18/2019 (0000) PAGE 2 Signed Report [id number] 22:38:00* Test Item Value Reference Range Interpretation Comments GLUBED (test code = GLUBED) 373 mg/dL 74-106 H Performed by certified box printing machine operator at [facility] [id number] 22:38:00* Test Item Value Reference Range Interpretation Comments GLUBED (test code = GLUBED) 422 mg/dL 74-106 H Performed by certified box printing machine operator at [facility] - CT HEAD/BRAIN W/O [id number] 22:09:00 Name: KALYANI TALAVERA [facility] : 1955 Age/S: 64 / F [address] Unit #: [id number] Loc: [place] [address] Phys: Leonora Goins MD Acct: [id number] Dis Date: Status: REG ER PHONE #: [phone] Exam Date: 05/17/20192118 FAX #: [phone] Reason: weakness EXAMS: CPT CODE: [id number] CT HEAD/BRAIN W/O CONT 63013 HISTORY: weakness TECHNIQUE: Noncontrast 2.5 mm axial [...] process or change from prior exam. Location: [facility] at 2209 Reported and signed by: Dago Goodson MD CC: Chris Nur MD; Leonora Goins MD Technologist:RT SOTO(R) CT CTDI: DLP: Trnscb Date/Time: 05/17/2019 (2208) t.SDR.RR31 Orig Print D/T: S: 05/17/2019 (8851) PAGE 1 Signed Report BASIC METABOLIC [id number] 22:03:00* Test Item Value Reference Range Interpretation [...] CA) 8.6 mg/dL 8.5-10.1 N HEPATIC FUNCTION [id number] 22:03:00* Test Item Value Reference Range Interpretation [...] reference range due to change in reagent. [id number] 22:03:00* Test Item Value Reference Range Interpretation Comments LIPASE (test code = LIP) 105 U/L 73.0-393.0 N [id number] 22:03:00* Test Item Value Reference Range Interpretation Comments TROPONIN-I (test code = TROPI) <0.015 ng/mL 0-0.045 N - XR CHEST 1 [id number] 22:01:00 FAX: Amish Nur Si [phone] [place]: [address] St: REG FAX: Leonora Norton [phone] Name: KALYANI TALAVERA [facility] : 1955 Age/S: 64[facility] [address] [facility]: [id number] Loc: [place] [address] Phys: Leonora Goins MD Acct: [id number] Dis Date: Status: REG ER PHONE #: [phone] Exam Date: 05/17/20192109 FAX #: [phone] Reason: WEAKNESS EXAMS: CPT CODE: [id number] XR CHEST 1 V 83476 REASON FOR EXAM: WEAKNESS Exam Order Date: [...] be secondary to diminished lung volumes. Location: [facility] at 2201 Reported and signed by: Dago Goodson MD CC: Lucille Land MD; Leonora Goins MD Technologist: EZEQUIEL CHAPA Trnscrd Date/Time/By: 05/17/2019 (2200) : By: LeanneRR31 Orig Print D/T: S: 05/17/2019 (2203) PAGE 1 Signed Report URINALYSIS [id number] 21:54:00* Test Item Value Reference Range Interpretation [...] #/HPF NONE Urine Source? Clean CatchBASIC METABOLIC [id number] 21:42:00* Test Item Value Reference Range Interpretation [...] code = CA) mg/dL 8.5-10.1 HEPATIC FUNCTION [id number] 21:42:00* Test Item Value Reference Range Interpretation [...] TOTAL (test code = ALKP) IUnit/L 45-117 [id number] 21:42:00* Test Item Value Reference Range Interpretation Comments LIPASE (test code = LIP) U/L 73.0-393.0 [id number] 21:42:00* Test Item Value Reference Range Interpretation Comments TROPONIN-I (test code = TROPI) ng/mL 0-0.045 CBC W/O [id number] 21:33:00* Test Item Value Reference Range Interpretation [...] code = MPV) 10.9 fL 6.7-11.0 N [id number] 02:14:00* Test Item Value Reference Range Interpretation Comments GLUBED (test code = GLUBED) 359 mg/dL 74-106 H Performed by certified box printing machine operator at [facility] [id number] 01:04:00* Test Item Value Reference Range Interpretation Comments GLUBED (test code = GLUBED) 484 mg/dL 74-106 H Performed by certified box printing machine operator at [facility] URINALYSIS [id number] 00:11:00* Test Item Value Reference Range Interpretation [...] 1.001-1.035 UA BLOOD DIPSTICK (test code = MNOICA) Negative mg/dL NEGATIVE UA PH DIPSTICK (test [...] per HPF NONE Urine Source? Clean CatchURINALYSIS [id number] 00:07:00* Test Item Value Reference Range Interpretation [...] HPF NONE Urine Source? Clean CatchBASIC METABOLIC [id number] 23:16:00* Test Item Value Reference Range Interpretation Comments SODIUM (test code = NA) 132 mmol/L 136-145 L POTASSIUM (test code = K) 4.8 mmol/L 3.5-5.1 N CHLORIDE (test code = CL) 99.0 mmol/L 98-107 N CARBON DIOXIDE (test code = CO2) 25.0 mmol/L 21-32 N ANION GAP (test code = GAP) 12.8 10-20 N GLUCOSE (test code = GLU) 631 mg/dL 74-106 Re levar called to by ROES 04/30/19 2316Critical results verified and read back [...] CA) 8.6 mg/dL 8.5-10.1 N HEPATIC FUNCTION [id number] 23:16:00* Test Item Value Reference Range Interpretation [...] reference range due to change in reagent. [id number] 23:16:00* Test Item Value Reference Range Interpretation Comments TROPONIN-I (test code = TROPI) <0.015 ng/mL 0-0.045 N BASIC METABOLIC [id number] 22:52:00* Test Item Value Reference Range Interpretation [...] code = CA) mg/dL 8.5-10.1 HEPATIC FUNCTION [id number] 22:52:00* Test Item Value Reference Range Interpretation [...] TOTAL (test code = ALKP) IUnit/L 45-117 [id number] 22:52:00* Test Item Value Reference Range Interpretation Comments TROPONIN-I (test code = TROPI) ng/mL 0-0.045 - CT HEAD/BRAIN W/O [id number] 22:44:00 Name: KALYANI TALAVERA [facility] : 1955 Age/S: 64 / F [address] [facility] Unit #: [id number] Loc: [place] [address] Phys: RobertVince Astrid DO Acct: [id number] Dis Date: Status: REG ER PHONE #: [phone] Exam Date: 04/30/20192231 FAX #: [phone] Reason: headache/blurry vision EXAMS: CPT CODE: [id number] CT HEAD/BRAIN W/O CONT 84950 HISTORY: headache/blurry vision TECHNIQUE: Noncontrast 2.5 mm [...] by Dago Goodson MD on 04/30/2019 at 2244 Reporte d and signed by: Dago Goodson MD CC: Lucille Nru MD; Vince Jacobs DO Technologist:Arianna Hendrix RT(R); KIZZY Chavez CTDI: DL P: Trnscb Date/Time: 04/30/2019 (6886) tSTACIAR.RR31 O rig Print D/T: S: 04/30/2019 (9607) PAGE 1 Signed Re port CBC W/AUTO [id number] 22:43:00* Test Item Value Reference Range Interpretation [...] DIFF REQUIRED (test code = MDIFF) NO [id number] 22:16:00* Test Item Value Reference Range Interpretation Comments GLUBED (test code = GLUBED) > 500 mg/dL 74-106 HH [facility] certified box [facility]~ KNEE RIGHT THREE [id number] 04:11:00 [place] [address] Patient Name: KALYANI TALAVERA MR #: [id number] : 1955 Age/Sex: 64/F Req #: [id number] Adm Physician: Ordered by: JACQUES JANE MD [...] 04/27/19411 COPY TO: JACQUES JANE MD Bedside [id number] 04:02:00* Test Item Value Reference Range Interpretation Comments Bedside Glucose (test code = 93109-4) 387 70-120 H Meter ID: [id number] [facility] Glucose 2019-04-18 04:02:00* Test Item Value Reference Range Interpretation Comments Bedside Glucose (test code = 46177-2) 387 70-120 H Meter ID: [id number] [facility] Glucose 2019-03-15 03:09:00* Test Item Value Reference Range Interpretation Comments Bedside Glucose (test code = 76541-3) 272 70-120 H Meter ID: [id number] [facility] Glucose 2019-03-15 03:09:00* Test Item Value Reference Range Interpretation Comments Bedside Glucose (test code = 55713-0) 272 70-120 H Meter ID: [id number] [facility]2019-03-15 03:03:00 [place] [address] Patient Name: KALYANI TALAVERA MR #: [id number] : 1955 Age/Sex: 64/F Req #: [id number] Adm Physician: Ordered by: JACQUES JANE MD Report #: [id number] Location: ER Room/Bed: Procedure: 06 DX/CHEST SINGLE (PORTABLE) Exam Date: 03/15/19 [...] 03/15/19313 COPY TO: JACQUES JANE MD Sodium Dxwuv0915-27-31 02:29:00* Test Item Value Reference Range Interpretation Comments Sodium Level (test code = 2951-2) 134 136-145 L [facility] Xlmrr0413-06-96 02:29:00* Test Item Value Reference Range Interpretation Comments Potassium Level (test code = 2823-3) 4.2 3.5-5.1 [facility] HospitalChloride [id number] 02:29:00* Test Item Value Reference Range Interpretation Comments Chloride Level (test code = 2075-0) 99 98-107 [facility] HospitalCarbon Dioxide [id number] 02:29:00* Test Item Value Reference Range Interpretation Comments Carbon Dioxide Level (test code = 2028-9) 25 22-29 [facility] HospitalAnion [id number] 02:29:00* Test Item Value Reference Range Interpretation Comments Anion Gap (test code = 60155-3) 14.2 8-16 [facility] HospitalBlood Urea [id number] 02:29:00* Test Item Value Reference Range Interpretation Comments Blood Urea Nitrogen (test code = 3094-0) 26 7- [facility] HospitalCreatinine2019-08-23 02:29:00* Test Item Value Reference Range Interpretation Comments Creatinine (test code = 2160-0) 1.11 0.57-1.11 [facility] HospitalBUN/Creatinine [id number] 02:29:00* Test Item Value Reference Range Interpretation Comments BUN/Creatinine Ratio (test code = 3097-3) 23 6- [facility] HospitalEstimat Glomerular Filtration Rate 2019-03-15 02:29:00* Test Item Value Reference Range Interpretation Comments Estimat Glomerular Filtration Rate (test code = 646885602) 50 >60 L Ranges were taken from the National Kidney Disease Education Program and the [facility] literature.Reference ranges:60 or greater: Gqukzo79-87 ( for 3 consecutive months): Chronic kidney disease 15 or less: Kidney failureHarris Health System Ben Taub HospitalGlucose Cvkrh2552-76-10 02:29:00* Test Item Value Reference Range Interpretation Comments Glucose Level (test code = WIH2937) 559 74-118 Results repeated and called to THELMA DONALDSON RN at 0229 on 03/15/19 by Francoise Proctor. Read back and verified.[facility] HospitalCalcium Ntmab3780-46-29 02:29:00* Test Item Value Reference Range Interpretation Comments Calcium Level (test code = 25744-6) 8.8 8.4-10.2 [facility] Axypb0073-50-28 02:29:00* Test Item Value Reference Range Interpretation Comments Sodium Level (test code = 2951-2) 134 136-145 L [facility] HospitalPotassium Odwfh5803-70-20 02:29:00* Test Item Value Reference Range Interpretation Comments Potassium Level (test code = 2823-3) 4.2 3.5-5.1 [facility] HospitalChloride Upwlm0930-71-25 02:29:00* Test Item Value Reference Range Interpretation Comments Chloride Level (test code = 2075-0) 99 98-107 [facility] HospitalCarbon Dioxide Jyetu8064-62-52 02:29:00* Test Item Value Reference Range Interpretation Comments Carbon Dioxide Level (test code = 2028-9) 25 22-29 [facility] HospitalAnion Slq6672-37-20 02:29:00* Test Item Value Reference Range Interpretation Comments Anion Gap (test code = 53214-7) 14.2 8-16 [facility] HospitalBlood Urea Qoagboag7957-95-68 02:29:00* Test Item Value Reference Range Interpretation Comments Blood Urea Nitrogen (test code = 3094-0) 26 7-26 [facility] HospitalCreatinine2019-08-23 02:29:00* Test Item Value Reference Range Interpretation Comments Creatinine (test code = 2160-0) 1.11 0.57-1.11 [facility] HospitalBUN/Creatinine Rqaka9596-66-11 02:29:00* Test Item Value Reference Range Interpretation Comments BUN/Creatinine Ratio (test code = 3097-3) 23 6-25 [facility] HospitalEstimat Glomerular Filtration Rate 2019-03-15 02:29:00* Test Item Value Reference Range Interpretation Comments Estimat Glomerular Filtration Rate (test code = 199984835) 50 >60 L Ranges were taken from the National Kidney Disease Education Program and the [facility] literature.Reference ranges:60 or greater: Ejnhbq97-86 ( for 3 consecutive months): Chronic kidney disease 15 or less: Kidney failureHarris Health System Ben [facility] HospitalGlucose Ddwvm8666-10-18 02:29:00* Test Item Value Reference Range Interpretation Comments Glucose Level (test code = YIG3954) 559 74-118 Results repeated and called to THELMA DONALDSON RN at 0229 on 03/15/19 by Francoise Proctor. Read back and verified.[facility] HospitalCalcium Pyunk7052-75-32 02:29:00* Test Item Value Reference Range Interpretation Comments Calcium Level (test code = 94386-6) 8.8 8.4-10.2 [facility] Zzkih8580-56-66 02:29:00* Test Item Value Reference Range Interpretation Comments Sodium Level (test code = 2951-2) 134 136-145 L [facility] HospitalPotassium Dypap0979-22-22 02:29:00* Test Item Value Reference Range Interpretation Comments Potassium Level (test code = 2823-3) 4.2 3.5-5.1 [facility] HospitalChloride Pljat5123-69-97 02:29:00* Test Item Value Reference Range Interpretation Comments Chloride Level (test code = 2075-0) 99 98-107 [facility] HospitalCarbon Dioxide Eowez4234-11-39 02:29:00* Test Item Value Reference Range Interpretation Comments Carbon Dioxide Level (test code = 2028-9) 25 22-29 [facility] HospitalAnion Vlr3642-77-92 02:29:00* Test Item Value Reference Range Interpretation Comments Anion Gap (test code = 41436-1) 14.2 8-16 [facility] HospitalBlood Urea Ltztccbm4052-73-86 02:29:00* Test Item Value Reference Range Interpretation Comments Blood Urea Nitrogen (test code = 3094-0) 26 7-26 [facility] HospitalCreatinine2019-08-23 02:29:00* Test Item Value Reference Range Interpretation Comments Creatinine (test code = 2160-0) 1.11 0.57-1.11 [facility] HospitalBUN/Creatinine Rxjxk0934-41-19 02:29:00* Test Item Value Reference Range Interpretation Comments BUN/Creatinine Ratio (test code = 3097-3) 23 6-25 [facility] HospitalEstimat Glomerular Filtration Rate 2019-03-15 02:29:00* Test Item Value Reference Range Interpretation Comments Estimat Glomerular Filtration Rate (test code = 396507620) 50 >60 L Ranges were taken from the National Kidney Disease Education Program and the [facility] Kidney Foundation literature.Reference ranges:60 or greater: Ccefdh21-29 ( for 3 consecutive months): Chronic kidney disease 15 or less: Kidney failureHarris Health System Ben [facility] HospitalGlucose Lmxfa0469-31-18 02:29:00* Test Item Value Reference Range Interpretation Comments Glucose Level (test code = JAD9101) 554 74118 HH Results repeated and called to THELMA DONALDSON RN at 0229 on 03/15/19 by Francoise Proctor. Read back and verified.[facility] HospitalCalcium Wdzfo0416-49-12 02:29:00* Test Item Value Reference Range Interpretation Comments Calcium Level (test code = 32493-3) 8.8 8.4-10.2 [facility] Xqwev2512-48-41 02:29:00* Test Item Value Reference Range Interpretation Comments Sodium Level (test code = 2951-2) 134 136-145 L [facility] HospitalPotassium Srtyo2816-72-02 02:29:00* Test Item Value Reference Range Interpretation Comments Potassium Level (test code = 2823-3) 4.2 3.5-5.1 [facility] HospitalChloride Rxytf5721-29-22 02:29:00* Test Item Value Reference Range Interpretation Comments Chloride Level (test code = 2075-0) 99 98-107 [facility] HospitalCarbon Dioxide Qjpnr7142-12-94 02:29:00* Test Item Value Reference Range Interpretation Comments Carbon Dioxide Level (test code = 2028-9) 25 22-29 [facility] HospitalAnion Ydy7758-47-09 02:29:00* Test Item Value Reference Range Interpretation Comments Anion Gap (test code = 39635-9) 14.2 8-16 [facility] HospitalBlood Urea Ixplsqhm7679-10-59 02:29:00* Test Item Value Reference Range Interpretation Comments Blood Urea Nitrogen (test code = 3094-0) 26 7-26 [facility] HospitalCreatinine2019-08-23 02:29:00* Test Item Value Reference Range Interpretation Comments Creatinine (test code = 2160-0) 1.11 0.57-1.11 [facility] HospitalBUN/Creatinine Uowro8201-48-42 02:29:00* Test Item Value Reference Range Interpretation Comments BUN/Creatinine Ratio (test code = 3097-3) 23 6-25 [facility] HospitalEstimat Glomerular Filtration Rate 2019-03-15 02:29:00* Test Item Value Reference Range Interpretation Comments Estimat Glomerular Filtration Rate (test code = 164783126) 50 >60 L Ranges were taken from the National Kidney Disease Education Program and the [facility] Kidney Foundation literature.Reference ranges:60 or greater: Iywqpf01-80 ( for 3 consecutive months): Chronic kidney disease 15 or less: Kidney failureHarris Health System Ben [facility] HospitalGlucose Hwcmw0533-32-67 02:29:00* Test Item Value Reference Range Interpretation Comments Glucose Level (test code = PPM9580) 551 74118 HH Results repeated and called to THELMA DONALDSON RN at 0229 on 03/15/19 by Francoise Proctor. Read back and verified.[facility] HospitalCalcium Pgrvt9389-02-15 02:29:00* Test Item Value Reference Range Interpretation Comments Calcium Level (test code = 59281-5) 8.8 8.4-10.2 [facility] HospitalWhite Blood Wdvaj1527-50-94 02:16:00* Test Item Value Reference Range Interpretation Comments White Blood Count (test code = 6690-2) 5.52 4.8-10.8 [facility] HospitalRed Blood Crola7234-59-69 02:16:00* Test Item Value Reference Range Interpretation Comments Red Blood Count (test code = 789-8) 4.47 3.6-5.1 [facility] HospitalHemoglobin2019-08-23 02:16:00* Test Item Value Reference Range Interpretation Comments Hemoglobin (test code = 90785-9) 11.3 12.0-16.0 L [facility] HospitalHematocrit2019-08-23 02:16:00* Test Item Value Reference Range Interpretation Comments Hematocrit (test code = 4544-3) 38.1 34.2-44.1 [facility] HospitalMean Corpuscular Xvpzfr4480-96-62 02:16:00* Test Item Value Reference Range Interpretation Comments Mean Corpuscular Volume (test code = 787-2) 85.2 81-99 [facility] HospitalMean Corpuscular Oalkjytelg8259-20-63 02:16:00* Test Item Value Reference Range Interpretation Comments Mean Corpuscular Hemoglobin (test code = 785-6) 25.3 28-32 L [facility] HospitalMean Corpuscular Hemoglobin Concent 2019-03-15 02:16:00* Test Item Value Reference Range Interpretation Comments Mean Corpuscular Hemoglobin Concent (test code = 786-4) 29.7 31-35 L [facility] HospitalRed Cell Distribution Qqhqk5992-66-88 02:16:00* Test Item Value Reference Range Interpretation Comments Red Cell Distribution Width (test code = 85876-4) 16.0 11.7 -14.4 H [facility] HospitalPlatelet Jpede1351-01-78 02:16:00* Test Item Value Reference Range Interpretation Comments Platelet Count (test code = 777-3) 175 140-360 [facility] HospitalNeutrophils (%) (Auto)2019-03-15 02:16:00 * Test Item Value Reference Range Interpretation Comments Neutrophils (%) (Auto) (test code = 22803-6) 71.8 38.7-80.0 [facility] HospitalLymphocytes (%) (Auto)2019-03-15 02:16:00 * Test Item Value Reference Range Interpretation Comments Lymphocytes (%) (Auto) (test code = 736-9) 20.1 18.0-39.1 [facility] HospitalMonocytes (%) (Auto)2019-03-15 02:16:00* Test Item Value Reference Range Interpretation Comments Monocytes (%) (Auto) (test code = 5905-5) 3.8 4.4-11.3 L [facility] HospitalEosinophils (%) (Auto)2019-03-15 02:16:00 * Test Item Value Reference Range Interpretation Comments Eosinophils (%) (Auto) (test code = 713-8) 1.8 0.0-6.0 [facility] HospitalBasophils (%) (Auto)2019-03-15 02:16:00* Test Item Value Reference Range Interpretation Comments Basophils (%) (Auto) (test code = 706-2) 0.9 0.0-1.0 [facility] HospitalIM GRANULOCYTES %2019-03-15 02:16:00* Test Item Value Reference Range Interpretation Comments IM GRANULOCYTES % (test code = IM GRANULOCYTES %) 1.6 0.0- 1.0 H [facility] HospitalNeutrophils # (Auto)2019-03-15 02:16:00* Test Item Value Reference Range Interpretation Comments Neutrophils # (Auto) (test code = 751-8) 4.0 2.1-6.9 [facility] HospitalLymphocytes # (Auto)2019-03-15 02:16:00* Test Item Value Reference Range Interpretation Comments Lymphocytes # (Auto) (test code = 94737-7) 1.1 1.0-3.2 [facility] HospitalMonocytes # (Auto)2019-03-15 02:16:00* Test Item Value Reference Range Interpretation Comments Monocytes # (Auto) (test code = 742-7) 0.2 0.2-0.8 [facility] HospitalEosinophils # (Auto)2019-03-15 02:16:00* Test Item Value Reference Range Interpretation Comments Eosinophils # (Auto) (test code = 711-2) 0.1 0.0-0.4 [facility] HospitalBasophils # (Auto)2019-03-15 02:16:00* Test Item Value Reference Range Interpretation Comments Basophils # (Auto) (test code = 704-7) 0.1 0.0-0.1 [facility] HospitalAbsolute Immature Granulocyte (auto 2019-03-15 02:16:00* Test Item Value Reference Range Interpretation Comments Absolute Immature Granulocyte (auto (joseph t code = Absolute Immature Granulocyte (auto) 0.09 0-0.1 [facility] HospitalWhite Blood Hzxro3353-42-55 02:16:00* Test Item Value Reference Range Interpretation Comments White Blood Count (test code = 6690-2) 5.52 4.8-10.8 [facility] HospitalRed Blood Lpkvv7099-76-08 02:16:00* Test Item Value Reference Range Interpretation Comments Red Blood Count (test code = 789-8) 4.47 3.6-5.1 [facility] HospitalHemoglobin2019-08-23 02:16:00* Test Item Value Reference Range Interpretation Comments Hemoglobin (test code = 02842-4) 11.3 12.0-16.0 L [facility] HospitalHematocrit2019-08-23 02:16:00* Test Item Value Reference Range Interpretation Comments Hematocrit (test code = 4544-3) 38.1 34.2-44.1 [facility] HospitalMean Corpuscular Txdxpn6184-64-66 02:16:00* Test Item Value Reference Range Interpretation Comments Mean Corpuscular Volume (test code = 787-2) 85.2 81-99 [facility] HospitalMean Corpuscular Qccmmzncef9387-76-13 02:16:00* Test Item Value Reference Range Interpretation Comments Mean Corpuscular Hemoglobin (test code = 785-6) 25.3 28-32 L [facility] HospitalMean Corpuscular Hemoglobin Concent 2019-03-15 02:16:00* Test Item Value Reference Range Interpretation Comments Mean Corpuscular Hemoglobin Concent (test code = 786-4) 29.7 31-35 L [facility] HospitalRed Cell Distribution Ohazx1596-53-99 02:16:00* Test Item Value Reference Range Interpretation Comments Red Cell Distribution Width (test code = 71715-0) 16.0 11.7 -14.4 H [facility] HospitalPlatelet Ztmnh1716-24-35 02:16:00* Test Item Value Reference Range Interpretation Comments Platelet Count (test code = 777-3) 175 140-360 [facility] HospitalNeutrophils (%) (Auto)2019-03-15 02:16:00 * Test Item Value Reference Range Interpretation Comments Neutrophils (%) (Auto) (test code = 92614-3) 71.8 38.7-80.0 [facility] HospitalLymphocytes (%) (Auto)2019-03-15 02:16:00 * Test Item Value Reference Range Interpretation Comments Lymphocytes (%) (Auto) (test code = 736-9) 20.1 18.0-39.1 [facility] HospitalMonocytes (%) (Auto)2019-03-15 02:16:00* Test Item Value Reference Range Interpretation Comments Monocytes (%) (Auto) (test code = 5905-5) 3.8 4.4-11.3 L [facility] HospitalEosinophils (%) (Auto)2019-03-15 02:16:00 * Test Item Value Reference Range Interpretation Comments Eosinophils (%) (Auto) (test code = 713-8) 1.8 0.0-6.0 [facility] HospitalBasophils (%) (Auto)2019-03-15 02:16:00* Test Item Value Reference Range Interpretation Comments Basophils (%) (Auto) (test code = 706-2) 0.9 0.0-1.0 [facility] HospitalIM GRANULOCYTES %2019-03-15 02:16:00* Test Item Value Reference Range Interpretation Comments IM GRANULOCYTES % (test code = IM GRANULOCYTES %) 1.6 0.0- 1.0 H [facility] HospitalNeutrophils # (Auto)2019-03-15 02:16:00* Test Item Value Reference Range Interpretation Comments Neutrophils # (Auto) (test code = 751-8) 4.0 2.1-6.9 [facility] HospitalLymphocytes # (Auto)2019-03-15 02:16:00* Test Item Value Reference Range Interpretation Comments Lymphocytes # (Auto) (test code = 76812-8) 1.1 1.0-3.2 [facility] HospitalMonocytes # (Auto)2019-03-15 02:16:00* Test Item Value Reference Range Interpretation Comments Monocytes # (Auto) (test code = 742-7) 0.2 0.2-0.8 [facility] HospitalEosinophils # (Auto)2019-03-15 02:16:00* Test Item Value Reference Range Interpretation Comments Eosinophils # (Auto) (test code = 711-2) 0.1 0.0-0.4 [facility] HospitalBasophils # (Auto)2019-03-15 02:16:00* Test Item Value Reference Range Interpretation Comments Basophils # (Auto) (test code = 704-7) 0.1 0.0-0.1 [facility] HospitalAbsolute Immature Granulocyte (auto 2019-03-15 02:16:00* Test Item Value Reference Range Interpretation Comments Absolute Immature Granulocyte (auto (joseph t code = Absolute Immature Granulocyte (auto) 0.09 0-0.1 [facility] HospitalWhite Blood Ltsee7076-13-77 02:16:00* Test Item Value Reference Range Interpretation Comments White Blood Count (test code = 6690-2) 5.52 4.8-10.8 [facility] HospitalRed Blood Yhorq0434-82-85 02:16:00* Test Item Value Reference Range Interpretation Comments Red Blood Count (test code = 789-8) 4.47 3.6-5.1 [facility] HospitalHemoglobin2019-08-23 02:16:00* Test Item Value Reference Range Interpretation Comments Hemoglobin (test code = 77180-4) 11.3 12.0-16.0 L [facility] HospitalHematocrit2019-08-23 02:16:00* Test Item Value Reference Range Interpretation Comments Hematocrit (test code = 4544-3) 38.1 34.2-44.1 [facility] HospitalMean Corpuscular Nrlsdu5338-25-61 02:16:00* Test Item Value Reference Range Interpretation Comments Mean Corpuscular Volume (test code = 787-2) 85.2 81-99 [facility] HospitalMean Corpuscular Hxqmvcpyus5395-71-11 02:16:00* Test Item Value Reference Range Interpretation Comments Mean Corpuscular Hemoglobin (test code = 785-6) 25.3 28-32 L [facility] HospitalMean Corpuscular Hemoglobin Concent 2019-03-15 02:16:00* Test Item Value Reference Range Interpretation Comments Mean Corpuscular Hemoglobin Concent (test code = 786-4) 29.7 31-35 L [facility] HospitalRed Cell Distribution Kqsji6814-91-37 02:16:00* Test Item Value Reference Range Interpretation Comments Red Cell Distribution Width (test code = 45256-2) 16.0 11.7 -14.4 H [facility] HospitalPlatelet Acmcu7426-20-59 02:16:00* Test Item Value Reference Range Interpretation Comments Platelet Count (test code = 777-3) 175 140-360 [facility] HospitalNeutrophils (%) (Auto)2019-03-15 02:16:00 * Test Item Value Reference Range Interpretation Comments Neutrophils (%) (Auto) (test code = 32770-6) 71.8 38.7-80.0 [facility] HospitalLymphocytes (%) (Auto)2019-03-15 02:16:00 * Test Item Value Reference Range Interpretation Comments Lymphocytes (%) (Auto) (test code = 736-9) 20.1 18.0-39.1 [facility] HospitalMonocytes (%) (Auto)2019-03-15 02:16:00* Test Item Value Reference Range Interpretation Comments Monocytes (%) (Auto) (test code = 5905-5) 3.8 4.4-11.3 L [facility] HospitalEosinophils (%) (Auto)2019-03-15 02:16:00 * Test Item Value Reference Range Interpretation Comments Eosinophils (%) (Auto) (test code = 713-8) 1.8 0.0-6.0 [facility] HospitalBasophils (%) (Auto)2019-03-15 02:16:00* Test Item Value Reference Range Interpretation Comments Basophils (%) (Auto) (test code = 706-2) 0.9 0.0-1.0 [facility] HospitalIM GRANULOCYTES %2019-03-15 02:16:00* Test Item Value Reference Range Interpretation Comments IM GRANULOCYTES % (test code = IM GRANULOCYTES %) 1.6 0.0- 1.0 H [facility] HospitalNeutrophils # (Auto)2019-03-15 02:16:00* Test Item Value Reference Range Interpretation Comments Neutrophils # (Auto) (test code = 751-8) 4.0 2.1-6.9 [facility] HospitalLymphocytes # (Auto)2019-03-15 02:16:00* Test Item Value Reference Range Interpretation Comments Lymphocytes # (Auto) (test code = 10230-7) 1.1 1.0-3.2 [facility] HospitalMonocytes # (Auto)2019-03-15 02:16:00* Test Item Value Reference Range Interpretation Comments Monocytes # (Auto) (test code = 742-7) 0.2 0.2-0.8 [facility] HospitalEosinophils # (Auto)2019-03-15 02:16:00* Test Item Value Reference Range Interpretation Comments Eosinophils # (Auto) (test code = 711-2) 0.1 0.0-0.4 [facility] HospitalBasophils # (Auto)2019-03-15 02:16:00* Test Item Value Reference Range Interpretation Comments Basophils # (Auto) (test code = 704-7) 0.1 0.0-0.1 [facility] HospitalAbsolute Immature Granulocyte (auto 2019-03-15 02:16:00* Test Item Value Reference Range Interpretation Comments Absolute Immature Granulocyte (auto (joseph t code = Absolute Immature Granulocyte (auto) 0.09 0-0.1 [facility] HospitalWhite Blood Xyeci4011-09-23 02:16:00* Test Item Value Reference Range Interpretation Comments White Blood Count (test code = 6690-2) 5.52 4.8-10.8 [facility] HospitalRed Blood Olwmb1347-61-97 02:16:00* Test Item Value Reference Range Interpretation Comments Red Blood Count (test code = 789-8) 4.47 3.6-5.1 [facility] HospitalHemoglobin2019-08-23 02:16:00* Test Item Value Reference Range Interpretation Comments Hemoglobin (test code = 28720-9) 11.3 12.0-16.0 L [facility] HospitalHematocrit2019-08-23 02:16:00* Test Item Value Reference Range Interpretation Comments Hematocrit (test code = 4544-3) 38.1 34.2-44.1 [facility] HospitalMean Corpuscular Cwbuvl3629-40-95 02:16:00* Test Item Value Reference Range Interpretation Comments Mean Corpuscular Volume (test code = 787-2) 85.2 81-99 [facility] HospitalMean Corpuscular Sjwvrwsoxr1377-96-58 02:16:00* Test Item Value Reference Range Interpretation Comments Mean Corpuscular Hemoglobin (test code = 785-6) 25.3 28-32 L [facility] HospitalMean Corpuscular Hemoglobin Concent 2019-03-15 02:16:00* Test Item Value Reference Range Interpretation Comments Mean Corpuscular Hemoglobin Concent (test code = 786-4) 29.7 31-35 L [facility] HospitalRed Cell Distribution Ahcdu9259-44-87 02:16:00* Test Item Value Reference Range Interpretation Comments Red Cell Distribution Width (test code = 45733-0) 16.0 11.7 -14.4 H [facility] HospitalPlatelet Qkecw5657-54-23 02:16:00* Test Item Value Reference Range Interpretation Comments Platelet Count (test code = 777-3) 175 140-360 [facility] HospitalNeutrophils (%) (Auto)2019-03-15 02:16:00 * Test Item Value Reference Range Interpretation Comments Neutrophils (%) (Auto) (test code = 26490-3) 71.8 38.7-80.0 [facility] HospitalLymphocytes (%) (Auto)2019-03-15 02:16:00 * Test Item Value Reference Range Interpretation Comments Lymphocytes (%) (Auto) (test code = 736-9) 20.1 18.0-39.1 [facility] HospitalMonocytes (%) (Auto)2019-03-15 02:16:00* Test Item Value Reference Range Interpretation Comments Monocytes (%) (Auto) (test code = 5905-5) 3.8 4.4-11.3 L [facility] HospitalEosinophils (%) (Auto)2019-03-15 02:16:00 * Test Item Value Reference Range Interpretation Comments Eosinophils (%) (Auto) (test code = 713-8) 1.8 0.0-6.0 [facility] HospitalBasophils (%) (Auto)2019-03-15 02:16:00* Test Item Value Reference Range Interpretation Comments Basophils (%) (Auto) (test code = 706-2) 0.9 0.0-1.0 [facility] HospitalIM GRANULOCYTES %2019-03-15 02:16:00* Test Item Value Reference Range Interpretation Comments IM GRANULOCYTES % (test code = IM GRANULOCYTES %) 1.6 0.0- 1.0 H [facility] HospitalNeutrophils # (Auto)2019-03-15 02:16:00* Test Item Value Reference Range Interpretation Comments Neutrophils # (Auto) (test code = 751-8) 4.0 2.1-6.9 [facility] HospitalLymphocytes # (Auto)2019-03-15 02:16:00* Test Item Value Reference Range Interpretation Comments Lymphocytes # (Auto) (test code = 37582-4) 1.1 1.0-3.2 [facility] HospitalMonocytes # (Auto)2019-03-15 02:16:00* Test Item Value Reference Range Interpretation Comments Monocytes # (Auto) (test code = 742-7) 0.2 0.2-0.8 [facility] HospitalEosinophils # (Auto)2019-03-15 02:16:00* Test Item Value Reference Range Interpretation Comments Eosinophils # (Auto) (test code = 711-2) 0.1 0.0-0.4 [facility] HospitalBasophils # (Auto)2019-03-15 02:16:00* Test Item Value Reference Range Interpretation Comments Basophils # (Auto) (test code = 704-7) 0.1 0.0-0.1 [facility] HospitalAbsolute Immature Granulocyte (auto 2019-03-15 02:16:00* Test Item Value Reference Range Interpretation Comments Absolute Immature Granulocyte (auto (joseph t code = Absolute Immature Granulocyte (auto) 0.09 0-0.1 [facility] HospitalBedside Fjrlpux5352-18-72 05:15:00* Test Item Value Reference Range Interpretation Comments Bedside Glucose (test code = 77193-9) 329 70-120 H Meter ID: [id number] Health System Ben Taub HospitalFOREARM LEFT 2 VIEW 2019-02-24 01:23:00 [facility] [address] [place] [address] Patient Name: KALYANI TALAVERA MR #: [id number] : 1955 Age/Sex: 63/F Req #: [id number] Adm Physician: Ordered by: JACQUES JANE MD Report #: [id number] Location: ER Room/Bed: Procedure: 44 DX/FOREARM LEFT [...] N: No acute radiographic abnormality. Signed by: DO sherri Mendoza 02/24/2019 1:24 AM Dictated By: BRADLEY HARVEY DO Electronically Christiane d By: BRADLEY HARVEY DO on 02/24/19123 Transcribed By: JIM on 02/24/19123 COPY TO: JACQUES JANE MD Sodium Oznfx1196-10-25 00:35:00* Test Item Value Reference Range Interpretation Comments Sodium Level (test code = 2951-2) 135 136-145 L [facility]Potassium Brwcm8564-04-47 00:35:00* Test Item Value Reference Range Interpretation Comments Potassium Level (test code = 2823-3) 4.4 3.5-5.1 [facility] HospitalChloride Qagyi6716-08-52 00:35:00* Test Item Value Reference Range Interpretation Comments Chloride Level (test code = 2075-0) 102 98-107 [facility] HospitalCarbon Dioxide Gerav0718-86-80 00:35:00* Test Item Value Reference Range Interpretation Comments Carbon Dioxide Level (test code = 2028-9) 21 22-29 L [facility] HospitalAnion Wnc8514-38-14 00:35:00* Test Item Value Reference Range Interpretation Comments Anion Gap (test code = 91963-2) 16.4 8-16 H [facility] HospitalBlood Urea Bgkqhurr2355-85-01 00:35:00* Test Item Value Reference Range Interpretation Comments Blood Urea Nitrogen (test code = 3094-0) 24 7-26 [facility] HospitalCreatinine2019-08-04 00:35:00* Test Item Value Reference Range Interpretation Comments Creatinine (test code = 2160-0) 1.44 0.57-1.11 H [facility] HospitalBUN/Creatinine Dpwvz3389-75-58 00:35:00* Test Item Value Reference Range Interpretation Comments BUN/Creatinine Ratio (test code = 3097-3) 17 6-25 [facility] HospitalEstimat Glomerular Filtration Rate 2019-02-24 00:35:00* Test Item Value Reference Range Interpretation Comments Estimat Glomerular Filtration Rate (test code = 163875106) 37 >60 L Ranges were taken from the National Kidney Disease Education Program and the [facility] Foundation literature.Reference ranges:60 or greater: Kptpid65-81 ( for 3 consecutive months): Chronic kidney disease 15 or less: Kidney failureHarris Health System Ben [facility] HospitalGlucose Zeard5880-27-31 00:35:00* Test Item Value Reference Range Interpretation Comments Glucose Level (test code = INQ2056) 665 74-118 HH Results repeated and called to SHILPA Jack at 0034 on 02/24/19 by Sagar Alegria. Malinda simpson back and verified.[facility] HospitalCalcium Level 2019-02-24 00:35:00* Test Item Value Reference Range Interpretation Comments Calcium Level (test code = 26621-8) 9.5 8.4-10.2 [facility] HospitalTotal Vihrtrxrv8740-74-76 00:35:00* Test Item Value Reference Range Interpretation Comments Total Bilirubin (test code = 1975-2) 0.3 0.2-1.2 [facility] HospitalAspartate Amino Transf (AST/SGOT) 2019-02-24 00:35:00* Test Item Value Reference Range Interpretation Comments Aspartate Amino Transf (AST/SGOT) (test code = Aspartate Amino Transf (AST/SGOT)) 12 5-34 [facility] HospitalAlanine Aminotransferase (ALT/SGPT) 2019-02-24 00:35:00* Test Item Value Reference Range Interpretation Comments Alanine Aminotransferase (ALT/SGPT) (test code = 1742-6) 23 0-55 [facility] HospitalTotal Laxsgdx6449-40-68 00:35:00* Test Item Value Reference Range Interpretation Comments Total Protein (test code = 2885-2) 6.7 6.5-8.1 [facility] HospitalAlbumin2019-08-04 00:35:00* Test Item Value Reference Range Interpretation Comments Albumin (test code = 1751-7) 3.5 3.5-5.0 [facility] HospitalGlobulin2019-08-04 00:35:00* Test Item Value Reference Range Interpretation Comments Globulin (test code = 52079-8) 3.2 2.3-3.5 [facility] HospitalAlbumin/Globulin Hdmvd1390-58-35 00:35:00 * Test Item Value Reference Range Interpretation Comments Albumin/Globulin Ratio (test code = 1759-0) 1.1 0.8-2.0 [facility] HospitalAlkaline Qflroowxrjx9728-20-78 00:35:00* Test Item Value Reference Range Interpretation Comments Alkaline Phosphatase (test code = 6768-6) 82 40-150 [facility] HospitalTotal Kubsjzwwd4825-39-82 00:35:00* Test Item Value Reference Range Interpretation Comments Total Bilirubin (test code = 1975-2) 0.3 0.2-1.2 [facility] HospitalAspartate Amino Transf (AST/SGOT) 2019-02-24 00:35:00* Test Item Value Reference Range Interpretation Comments Aspartate Amino Transf (AST/SGOT) (test code = Aspartate Amino Transf (AST/SGOT)) 12 5-34 [facility] HospitalAlanine Aminotransferase (ALT/SGPT) 2019-02-24 00:35:00* Test Item Value Reference Range Interpretation Comments Alanine Aminotransferase (ALT/SGPT) (test code = 1742-6) 23 0-55 [facility] HospitalTotal Kngvosu3115-12-92 00:35:00* Test Item Value Reference Range Interpretation Comments Total Protein (test code = 2885-2) 6.7 6.5-8.1 [facility] HospitalAlbumin2019-08-04 00:35:00* Test Item Value Reference Range Interpretation Comments Albumin (test code = 1751-7) 3.5 3.5-5.0 [facility] HospitalGlobulin2019-08-04 00:35:00* Test Item Value Reference Range Interpretation Comments Globulin (test code = 54900-7) 3.2 2.3-3.5 [facility] HospitalAlbumin/Globulin Astqr5136-27-96 00:35:00 * Test Item Value Reference Range Interpretation Comments Albumin/Globulin Ratio (test code = 1759-0) 1.1 0.8-2.0 [facility] HospitalAlkaline Dzrtylouxoh2534-11-72 00:35:00* Test Item Value Reference Range Interpretation Comments Alkaline Phosphatase (test code = 6768-6) 82 40-150 [facility] HospitalTogunn[facility] hospital Hrkvyfnjl6339-71-59 00:35:00* Test Item Value Reference Range Interpretation Comments Total Bilirubin (test code = 1975-2) 0.3 0.2-1.2 [facility] HospitalAspartate Amino Transf (AST/SGOT) 2019-02-24 00:35:00* Test Item Value Reference Range Interpretation Comments Aspartate Amino Transf (AST/SGOT) (test code = Aspartate Amino Transf (AST/SGOT)) 12 5-34 [facility] HospitalAlanine Aminotransferase (ALT/SGPT) 2019-02-24 00:35:00* Test Item Value Reference Range Interpretation Comments Alanine Aminotransferase (ALT/SGPT) (test code = 1742-6) 23 0-[address] [facility] Xlptsnf2783-68-12 00:35:00* Test Item Value Reference Range Interpretation Comments Total Protein (test code = 2885-2) 6.7 6.5-8.1 [facility] HospitalAlbumin2019-08-04 00:35:00* Test Item Value Reference Range Interpretation Comments Albumin (test code = 1751-7) 3.5 3.5-5.0 [facility] HospitalGlobulin2019-08-04 00:35:00* Test Item Value Reference Range Interpretation Comments Globulin (test code = 30403-0) 3.2 2.3-3.5 [facility] HospitalAlbumin/Globulin Nenno3099-72-60 00:35:00 * Test Item Value Reference Range Interpretation Comments Albumin/Globulin Ratio (test code = 1759-0) 1.1 0.8-2.0 [facility] HospitalAlkaline Pvjwcctesld2658-97-24 00:35:00* Test Item Value Reference Range Interpretation Comments Alkaline Phosphatase (test code = 6768-6) 82 40-150 [facility] HospitalTotal Fwwzrqicc6432-76-65 00:35:00* Test Item Value Reference Range Interpretation Comments Total Bilirubin (test code = 1975-2) 0.3 0.2-1.2 [facility] HospitalAspartate Amino Transf (AST/SGOT) 2019-02-24 00:35:00* Test Item Value Reference Range Interpretation Comments Aspartate Amino Transf (AST/SGOT) (test code = Aspartate Amino Transf (AST/SGOT)) [facility] HospitalAlanine Aminotransferase (ALT/SGPT) 2019-02-24 00:35:00* Test Item Value Reference Range Interpretation Comments Alanine Aminotransferase (ALT/SGPT) (test code = 1742-6) 23 0-55 [facility] HospitalTotal Lfvqiyy9730-41-14 00:35:00* Test Item Value Reference Range Interpretation Comments Total Protein (test code = 2885-2) 6.7 6.5-8.1 [facility] HospitalAlbumin2019-08-04 00:35:00* Test Item Value Reference Range Interpretation Comments Albumin (test code = 1751-7) 3.5 3.5-5.0 [facility] HospitalGlobulin2019-08-04 00:35:00* Test Item Value Reference Range Interpretation Comments Globulin (test code = 36098-6) 3.2 2.3-3.5 [facility] HospitalAlbumin/Globulin Gcsgk8399-73-82 00:35:00 * Test Item Value Reference Range Interpretation Comments Albumin/Globulin Ratio (test code = 1759-0) 1.1 0.8-2.0 [facility] HospitalAlkaline Dvlmtujuzot1186-02-95 00:35:00* Test Item Value Reference Range Interpretation Comments Alkaline Phosphatase (test code = 6768-6) 82 40-150 [facility] HospitalTotal Rqmpdioeg1332-22-78 00:35:00* Test Item Value Reference Range Interpretation Comments Total Bilirubin (test code = 1975-2) 0.3 0.2-1.2 [facility] HospitalAspartate Amino Transf (AST/SGOT) 2019-02-24 00:35:00* Test Item Value Reference Range Interpretation Comments Aspartate Amino Transf (AST/SGOT) (test code = Aspartate Amino Transf (AST/SGOT)) [facility] HospitalAlanine Aminotransferase (ALT/SGPT) 2019-02-24 00:35:00* Test Item Value Reference Range Interpretation Comments Alanine Aminotransferase (ALT/SGPT) (test code = 1742-6) 23 0-55 [facility] HospitalTotal Hneognr6165-78-54 00:35:00* Test Item Value Reference Range Interpretation Comments Total Protein (test code = 2885-2) 6.7 6.5-8.1 [facility] HospitalAlbumin2019-08-04 00:35:00* Test Item Value Reference Range Interpretation Comments Albumin (test code = 1751-7) 3.5 3.5-5.0 [facility] HospitalGlobulin2019-08-04 00:35:00* Test Item Value Reference Range Interpretation Comments Globulin (test code = 34885-1) 3.2 2.3-3.5 [facility] HospitalAlbumin/Globulin Caryp0837-96-71 00:35:00 * Test Item Value Reference Range Interpretation Comments Albumin/Globulin Ratio (test code = 1759-0) 1.1 0.8-2.0 [facility] HospitalAlkaline Iuuaqcozbnx2525-95-63 00:35:00* Test Item Value Reference Range Interpretation Comments Alkaline Phosphatase (test code = 6768-6) 82 40-150 [facility] HospitalWhite Blood Anpmj9935-45-92 00:18:00* Test Item Value Reference Range Interpretation Comments White Blood Count (test code = 6690-2) 5.09 4.8-10.8 [facility] HospitalRed Blood Ufndx3294-06-56 00:18:00* Test Item Value Reference Range Interpretation Comments Red Blood Count (test code = 789-8) 4.64 3.6-5.1 [facility] HospitalHemoglobin2019-08-04 00:18:00* Test Item Value Reference Range Interpretation Comments Hemoglobin (test code = 55263-6) 11.8 12.0-16.0 L [facility] HospitalHematocrit2019-08-04 00:18:00* Test Item Value Reference Range Interpretation Comments Hematocrit (test code = 4544-3) 37.6 34.2-44.1 [facility] HospitalMean Corpuscular Cskmkj2001-34-35 00:18:00* Test Item Value Reference Range Interpretation Comments Mean Corpuscular Volume (test code = 787-2) 81.0 81-99 [facility] HospitalMean Corpuscular Avoamggqdf9376-88-30 00:18:00* Test Item Value Reference Range Interpretation Comments Mean Corpuscular Hemoglobin (test code = 785-6) 25.4 28-32 L [facility] HospitalMean Corpuscular Hemoglobin Concent 2019-02-24 00:18:00* Test Item Value Reference Range Interpretation Comments Mean Corpuscular Hemoglobin Concent (test code = 786-4) 31.4 31-35 [facility] HospitalRed Cell Distribution Lbysm9201-74-62 00:18:00* Test Item Value Reference Range Interpretation Comments Red Cell Distribution Width (test code = 97851-2) 15.5 11.7 -14.4 H [facility] HospitalPlatelet Dsytx4318-75-45 00:18:00* Test Item Value Reference Range Interpretation Comments Platelet Count (test code = 777-3) 155 140-360 [facility] HospitalNeutrophils (%) (Auto)2019-02-24 00:18:00 * Test Item Value Reference Range Interpretation Comments Neutrophils (%) (Auto) (test code = 19194-6) 69.6 38.7-80.0 [facility] HospitalLymphocytes (%) (Auto)2019-02-24 00:18:00 * Test Item Value Reference Range Interpretation Comments Lymphocytes (%) (Auto) (test code = 736-9) 20.0 18.0-39.1 [facility] HospitalMonocytes (%) (Auto)2019-02-24 00:18:00* Test Item Value Reference Range Interpretation Comments Monocytes (%) (Auto) (test code = 5905-5) 5.1 4.4-11.3 [facility] HospitalEosinophils (%) (Auto)2019-02-24 00:18:00 * Test Item Value Reference Range Interpretation Comments Eosinophils (%) (Auto) (test code = 713-8) 3.3 0.0-6.0 [facility] HospitalBasophils (%) (Auto)2019-02-24 00:18:00* Test Item Value Reference Range Interpretation Comments Basophils (%) (Auto) (test code = 706-2) 1.0 0.0-1.0 [facility] HospitalIM GRANULOCYTES %2019-02-24 00:18:00* Test Item Value Reference Range Interpretation Comments IM GRANULOCYTES % (test code = IM GRANULOCYTES %) 1.0 0.0- 1.0 [facility] HospitalNeutrophils # (Auto)2019-02-24 00:18:00* Test Item Value Reference Range Interpretation Comments Neutrophils # (Auto) (test code = 751-8) 3.5 2.1-6.9 [facility] HospitalLymphocytes # (Auto)2019-02-24 00:18:00* Test Item Value Reference Range Interpretation Comments Lymphocytes # (Auto) (test code = 28594-7) 1.0 1.0-3.2 [facility] HospitalMonocytes # (Auto)2019-02-24 00:18:00* Test Item Value Reference Range Interpretation Comments Monocytes # (Auto) (test code = 742-7) 0.3 0.2-0.8 [facility] HospitalEosinophils # (Auto)2019-02-24 00:18:00* Test Item Value Reference Range Interpretation Comments Eosinophils # (Auto) (test code = 711-2) 0.2 0.0-0.4 [facility] HospitalBasophils # (Auto)2019-02-24 00:18:00* Test Item Value Reference Range Interpretation Comments Basophils # (Auto) (test code = 704-7) 0.1 0.0-0.1 [facility] HospitalAbsolute Immature Granulocyte (auto 2019-02-24 00:18:00* Test Item Value Reference Range Interpretation Comments Absolute Immature Granulocyte (auto (joseph t code = Absolute Immature Granulocyte (auto) 0.05 0-0.1 [facility] HospitalBedside Qfiultd1964-33-22 12:27:00* Test Item Value Reference Range Interpretation Comments Bedside Glucose (test code = 86921-4) 302 70-120 H Meter ID: [id number] Texas Medical Centerodium Level 2019-01-21 06:25:00* Test Item Value Reference Range Interpretation Comments Sodium Level (test code = 2951-2) 137 136-145 [facility] HospitalPotassium Flnwp7845-70-82 06:25:00* Test Item Value Reference Range Interpretation Comments Potassium Level (test code = 2823-3) 4.8 3.5-5.1 [facility] HospitalChloride Heajr1596-55-60 06:25:00* Test Item Value Reference Range Interpretation Comments Chloride Level (test code = 2075-0) 101 98-107 [facility] HospitalCarbon Dioxide Xinyx6433-48-17 06:25:00* Test Item Value Reference Range Interpretation Comments Carbon Dioxide Level (test code = 2028-9) 29 22-29 [facility] HospitalAnion Mcb7852-40-23 06:25:00* Test Item Value Reference Range Interpretation Comments Anion Gap (test code = 55620-8) 11.8 8-16 [facility] HospitalBlood Urea Dirphwxw3721-54-10 06:25:00* Test Item Value Reference Range Interpretation Comments Blood Urea Nitrogen (test code = 3094-0) 17 7-26 [facility] HospitalCreatinine2019-07-01 06:25:00* Test Item Value Reference Range Interpretation Comments Creatinine (test code = 2160-0) 0.98 0.57-1.11 [facility] HospitalBUN/Creatinine Jwuzr4625-06-39 06:25:00* Test Item Value Reference Range Interpretation Comments BUN/Creatinine Ratio (test code = 3097-3) 17 6-25 [facility] HospitalEstimat Glomerular Filtration Rate 2019-01-21 06:25:00* Test Item Value Reference Range Interpretation Comments Estimat Glomerular Filtration Rate (test code = 306753057) 58 >60 L Ranges were taken from the National Kidney Disease Education Program and the [facility] Kidney Foundation literature.Reference ranges:60 or greater: Xitqxe24-99 ( for 3 consecutive months): Chronic kidney disease 15 or less: Kidney failureHarris Health System Ben Taub HospitalGlucose Qlccg8431-12-16 06:25:00* Test Item Value Reference Range Interpretation Comments Glucose Level (test code = MBP6047) 252 74-118 H [facility] HospitalCalcium Vjfax5772-41-89 06:25:00* Test Item Value Reference Range Interpretation Comments Calcium Level (test code = 57060-2) 9.2 8.4-10.2 [facility] HospitalTogunnison [facility] hospital Lghjsobdj8512-95-82 06:25:00* Test Item Value Reference Range Interpretation Comments Total Bilirubin (test code = 1975-2) 0.2 0.2-1.2 [facility] HospitalAspartate Amino Transf (AST/SGOT) 2019-01-21 06:25:00* Test Item Value Reference Range Interpretation Comments Aspartate Amino Transf (AST/SGOT) (test code = Aspartate Amino Transf (AST/SGOT)) 13 5-34 [facility] HospitalAlanine Aminotransferase (ALT/SGPT) 2019-01-21 06:25:00* Test Item Value Reference Range Interpretation Comments Alanine Aminotransferase (ALT/SGPT) (test code = 1742-6) 17 0-[address] [facility] Uabwhpk8968-89-35 06:25:00* Test Item Value Reference Range Interpretation Comments Total Protein (test code = 2885-2) 6.3 6.5-8.1 L [facility] HospitalAlbumin2019-07-01 06:25:00* Test Item Value Reference Range Interpretation Comments Albumin (test code = 1751-7) 3.2 3.5-5.0 L [facility] HospitalGlobulin2019-07-01 06:25:00* Test Item Value Reference Range Interpretation Comments Globulin (test code = 37995-4) 3.1 2.3-3.5 [facility] HospitalAlbumin/Globulin Dcdhb5993-72-18 06:25:00 * Test Item Value Reference Range Interpretation Comments Albumin/Globulin Ratio (test code = 1759-0) 1.0 0.8-2.0 [facility] HospitalAlkaline Vrmuffzzbii6429-98-96 06:25:00* Test Item Value Reference Range Interpretation Comments Alkaline Phosphatase (test code = 6768-6) 78 40-150 [facility] HospitalWhite Blood Iaplc9043-96-86 06:21:00* Test Item Value Reference Range Interpretation Comments White Blood Count (test code = 6690-2) 4.81 4.8-10.8 [facility] HospitalRed Blood Tjexh3031-50-90 06:21:00* Test Item Value Reference Range Interpretation Comments Red Blood Count (test code = 789-8) 4.90 3.6-5.1 [facility] HospitalHemoglobin2019-07-01 06:21:00* Test Item Value Reference Range Interpretation Comments Hemoglobin (test code = 50214-0) 12.0 12.0-16.0 [facility] HospitalHematocrit2019-07-01 06:21:00* Test Item Value Reference Range Interpretation Comments Hematocrit (test code = 4544-3) 39.4 34.2-44.1 [facility] HospitalMean Corpuscular Umlczg7279-55-64 06:21:00* Test Item Value Reference Range Interpretation Comments Mean Corpuscular Volume (test code = 787-2) 80.4 81-99 L [facility] HospitalMean Corpuscular Seltprsnrh2592-76-80 06:21:00* Test Item Value Reference Range Interpretation Comments Mean Corpuscular Hemoglobin (test code = 785-6) 24.5 28-32 L [facility] HospitalMean Corpuscular Hemoglobin Concent 2019-01-21 06:21:00* Test Item Value Reference Range Interpretation Comments Mean Corpuscular Hemoglobin Concent (test code = 786-4) 30.5 31-35 L [facility] HospitalRed Cell Distribution Kqics9801-11-07 06:21:00* Test Item Value Reference Range Interpretation Comments Red Cell Distribution Width (test code = 86460-7) 14.6 11.7 -14.4 H [facility] HospitalPlatelet Mbpux3176-63-50 06:21:00* Test Item Value Reference Range Interpretation Comments Platelet Count (test code = 777-3) 157 140-360 [facility] HospitalNeutrophils (%) (Auto)2019-01-21 06:21:00 * Test Item Value Reference Range Interpretation Comments Neutrophils (%) (Auto) (test code = 47666-9) 62.2 38.7-80.0 [facility] HospitalLymphocytes (%) (Auto)2019-01-21 06:21:00 * Test Item Value Reference Range Interpretation Comments Lymphocytes (%) (Auto) (test code = 736-9) 25.8 18.0-39.1 [facility] HospitalMonocytes (%) (Auto)2019-01-21 06:21:00* Test Item Value Reference Range Interpretation Comments Monocytes (%) (Auto) (test code = 5905-5) 5.8 4.4-11.3 [facility] HospitalEosinophils (%) (Auto)2019-01-21 06:21:00 * Test Item Value Reference Range Interpretation Comments Eosinophils (%) (Auto) (test code = 713-8) 5.0 0.0-6.0 [facility] HospitalBasophils (%) (Auto)2019-01-21 06:21:00* Test Item Value Reference Range Interpretation Comments Basophils (%) (Auto) (test code = 706-2) 0.6 0.0-1.0 [facility] HospitalIM GRANULOCYTES %2019-01-21 06:21:00* Test Item Value Reference Range Interpretation Comments IM GRANULOCYTES % (test code = IM GRANULOCYTES %) 0.6 0.0- 1.0 [facility] HospitalNeutrophils # (Auto)2019-01-21 06:21:00* Test Item Value Reference Range Interpretation Comments Neutrophils # (Auto) (test code = 751-8) 3.0 2.1-6.9 [facility] HospitalLymphocytes # (Auto)2019-01-21 06:21:00* Test Item Value Reference Range Interpretation Comments Lymphocytes # (Auto) (test code = 57559-9) 1.2 1.0-3.2 [facility] HospitalMonocytes # (Auto)2019-01-21 06:21:00* Test Item Value Reference Range Interpretation Comments Monocytes # (Auto) (test code = 742-7) 0.3 0.2-0.8 [facility] HospitalEosinophils # (Auto)2019-01-21 06:21:00* Test Item Value Reference Range Interpretation Comments Eosinophils # (Auto) (test code = 711-2) 0.2 0.0-0.4 [facility] HospitalBasophils # (Auto)2019-01-21 06:21:00* Test Item Value Reference Range Interpretation Comments Basophils # (Auto) (test code = 704-7) 0.0 0.0-0.1 [facility] HospitalAbsolute Immature Granulocyte (auto 2019-01-21 06:21:00* Test Item Value Reference Range Interpretation Comments Absolute Immature Granulocyte (auto (joseph t code = Absolute Immature Granulocyte (auto) 0.03 0-0.1 [facility] HospitalCholesterol Zgsfy1332-70-42 15:27:00* Test Item Value Reference Range Interpretation Comments Cholesterol Level (test code = 2093-3) 171 0-199 Less than 200 mg/dL Low Cbgm662 - 239 mg/dL Borderline Usfo278 m g/dl and greater High Risk [facility] HospitalLDL Icntbigqjuf4646-33-09 15:27:00* Test Item Value Reference Range Interpretation Comments LDL Cholesterol (test code = 2089-1) 103 60-130 [facility] HospitalHDL Rgnrfwbwtkw6998-08-26 15:27:00* Test Item Value Reference Range Interpretation Comments HDL Cholesterol (test code = 2085-9) 30 40-60 L [facility] HospitalCholesterol/HDL Mcdfz6893-87-17 15:27:00 * Test Item Value Reference Range Interpretation Comments Cholesterol/HDL Ratio (test code = 9830-1) 5.7 3.0-3.6 H [facility] HospitalCholesterol Imtyh2894-19-04 15:27:00* Test Item Value Reference Range Interpretation Comments Cholesterol Level (test code = 2093-3) 171 0-199 Less than 200 mg/dL Low Qbsh052 - 239 mg/dL Borderline Yrpw988 m g/dl and greater High Risk [facility] HospitalLDL Qgskglxfuxi1592-77-13 15:27:00* Test Item Value Reference Range Interpretation Comments LDL Cholesterol (test code = 9-1) 103 60-130 [facility] Pkgnraxfwlc0523-72-35 15:27:00* Test Item Value Reference Range Interpretation Comments HDL Cholesterol (test code = 2085-9) 30 40-60 L [facility] HospitalCh[facility]/HDL Pprif7665-40-07 15:27:00 * Test Item Value Reference Range Interpretation Comments Cholesterol/HDL Ratio (test code = 9830-1) 5.7 3.0-3.6 [facility] Zdkca9835-15-11 15:27:00* Test Item Value Reference Range Interpretation Comments Cholesterol Level (test code = 3-3) 171 0-199 Less than 200 mg/dL Low Kxzb303 - 239 mg/dL Borderline Ftgq842 m g/dl and greater High Risk [facility] HospitalLDL Qammuklsdlk4122-25-41 15:27:00* Test Item Value Reference Range Interpretation Comments LDL Cholesterol (test code = 9-1) 103 60-130 [facility] Yyhfdijnjvr1662-20-67 15:27:00* Test Item Value Reference Range Interpretation Comments HDL Cholesterol (test code = 2085-9) 30 40-60 L [facility]Ch[facility]HDL Sjcyl7708-16-88 15:27:00 * Test Item Value Reference Range Interpretation Comments Cholesterol/HDL Ratio (test code = 9830-1) 5.7 3.0-3.6 H [facility] HospitalCh[facility] Ugpvw9538-86-22 15:27:00* Test Item Value Reference Range Interpretation Comments Cholesterol Level (test code = 3-3) 171 0-199 Less than 200 mg/dL Low Mjvx190 - 239 mg/dL Borderline Vfxz247 m g/dl and greater High Risk [facility] Ytnpalmiddf0004-36-20 15:27:00* Test Item Value Reference Range Interpretation Comments LDL Cholesterol (test code = 2089-1) 103 60-130 [facility] Ebhgndxxooy7201-12-84 15:27:00* Test Item Value Reference Range Interpretation Comments HDL Cholesterol (test code = 2085-9) 30 40-60 L [facility]Ch[facility]HDL Gtfqx1339-84-67 15:27:00 * Test Item Value Reference Range Interpretation Comments Cholesterol/HDL Ratio (test code = 9830-1) 5.7 3.0-3.6 H [facility]Ch[facility] Yfrln8740-07-54 15:27:00* Test Item Value Reference Range Interpretation Comments Cholesterol Level (test code = 3-3) 171 0-199 Less than 200 mg/dL Low Ndon977 - 239 mg/dL Borderline Lwmn480 m g/dl and greater High Risk [facility] Koemrsncrkf0505-69-51 15:27:00* Test Item Value Reference Range Interpretation Comments LDL Cholesterol (test code = 2089-1) 103 60-130 [facility] Vkqmgbfwbvy1574-69-90 15:27:00* Test Item Value Reference Range Interpretation Comments HDL Cholesterol (test code = 2085-9) 30 40-60 L [facility]Ch[facility]HDL Kglpo7071-00-57 15:27:00 * Test Item Value Reference Range Interpretation Comments Cholesterol/HDL Ratio (test code = 9830-1) 5.7 3.0-3.6 H [facility] HospitalCh[facility] Auotg8560-76-42 15:27:00* Test Item Value Reference Range Interpretation Comments Cholesterol Level (test code = 3-3) 171 0-199 Less than 200 mg/dL Low Fubg495 - 239 mg/dL Borderline Pwmv548 m g/dl and greater High Risk [facility] Lchfvhwepuo5578-65-43 15:27:00* Test Item Value Reference Range Interpretation Comments LDL Cholesterol (test code = 2089-1) 103 60-130 [facility] Bpkkgcoaxuy7453-20-46 15:27:00* Test Item Value Reference Range Interpretation Comments HDL Cholesterol (test code = 2085-9) 30 40-60 L [facility] HospitalCh[facility]HDL Yfihg5207-60-18 15:27:00 * Test Item Value Reference Range Interpretation Comments Cholesterol/HDL Ratio (test code = 9830-1) 5.7 3.0-3.6 H [facility] HospitalTriglycerides Tvqed5048-74-47 13:34:00* Test Item Value Reference Range Interpretation Comments Triglycerides Level (test code = 2571-8) 190 0-149 H [facility] HospitalTriglycerides Chase4830-61-35 13:34:00* Test Item Value Reference Range Interpretation Comments Triglycerides Level (test code = 2571-8) 190 0-149 H [facility] HospitalTriglycerides Gmovw7810-18-05 13:34:00* Test Item Value Reference Range Interpretation Comments Triglycerides Level (test code = 2571-8) 190 0-149 H [facility] HospitalTriglycerides Waxcj7094-25-41 13:34:00* Test Item Value Reference Range Interpretation Comments Triglycerides Level (test code = 2571-8) 190 0-149 H [facility] HospitalTriglycerides Iupic3644-92-97 13:34:00* Test Item Value Reference Range Interpretation Comments Triglycerides Level (test code = 2571-8) 190 0-149 H [facility] HospitalTriglycerides Eubls9103-39-47 13:34:00* Test Item Value Reference Range Interpretation Comments Triglycerides Level (test code = 2571-8) 190 0-149 [facility] Yernq6585-15-06 09:04:00* Test Item Value Reference Range Interpretation Comments Stool Occult Blood (test code = 2335-8) POSITIVE NEGATIVE [facility] Occult Ixmqt6018-19-95 09:04:00* Test Item Value Reference Range Interpretation Comments Stool Occult Blood (test code = 2335-8) POSITIVE NEGATIVE [facility] Occult Vejge1557-33-56 09:04:00* Test Item Value Reference Range Interpretation Comments Stool Occult Blood (test code = 2335-8) POSITIVE NEGATIVE [facility] Occult Pxzot6271-61-00 09:04:00* Test Item Value Reference Range Interpretation Comments Stool Occult Blood (test code = 2335-8) POSITIVE NEGATIVE [facility] Occult Lwrwh0301-84-83 09:04:00* Test Item Value Reference Range Interpretation Comments Stool Occult Blood (test code = 2335-8) POSITIVE NEGATIVE [facility] Occult Jxwxa3699-06-31 09:04:00* Test Item Value Reference Range Interpretation Comments Stool Occult Blood (test code = 2335-8) POSITIVE [facility]GATIVE [facility] 2019-01-18 06:48:00* Test Item Value Reference Range Interpretation Comments Thyroid Stimulating Hormone (TSH) (test code = 75381-4) 0.428 0.350-4.940 [facility] HospitalThyroid [facility]ulating Hormone (TSH) 2019-01-18 06:48:00* Test Item Value Reference Range Interpretation Comments Thyroid Stimulating Hormone (TSH) (test code = 59639-0) 0.428 0.350-4.940 [facility] HospitalThyroid Stimulating Hormone (TSH) 2019-01-18 06:48:00* Test Item Value Reference Range Interpretation Comments Thyroid Stimulating Hormone (TSH) (test code = 28158-0) 0.428 0.350-4.940 [facility] HospitalTh[facility]ulating Hormone (TSH) 2019-01-18 06:48:00* Test Item Value Reference Range Interpretation Comments Thyroid Stimulating Hormone (TSH) (test code = 24442-4) 0.428 0.350-4.940 [facility] HospitalTh[facility]ulating Hormone (TSH) 2019-01-18 06:48:00* Test Item Value Reference Range Interpretation Comments Thyroid Stimulating Hormone (TSH) (test code = 22623-6) 0.428 0.350-4.940 [facility] HospitalTh[facility]roid [facility]ulating Hormone (TSH) 2019-01-18 06:48:00* Test Item Value Reference Range Interpretation Comments Thyroid Stimulating Hormone (TSH) (test code = 64040-8) 0.428 0.350-4.940 [facility] Giusqguab6716-97-34 15:32:00* Test Item Value Reference Range Interpretation Comments Free Thyroxine (test code = 3024-7) 1.05 0.8-1.8 [facility] Elhwnqnkb7130-67-36 15:32:00* Test Item Value Reference Range Interpretation Comments Free Thyroxine (test code = 3024-7) 1.05 0.8-1.8 [facility] Uxrjzhobw5542-95-60 15:32:00* Test Item Value Reference Range Interpretation Comments Free Thyroxine (test code = 3024-7) 1.05 0.8-1.8 [facility] Jfnrsifdf6112-80-33 15:32:00* Test Item Value Reference Range Interpretation Comments Free Thyroxine (test code = 3024-7) 1.05 0.8-1.8 [facility] Cjwxebigm7619-47-10 15:32:00* Test Item Value Reference Range Interpretation Comments Free Thyroxine (test code = 3024-7) 1.05 0.8-1.8 [facility] Hfyqiuuvn6146-11-72 15:32:00* Test Item Value Reference Range Interpretation Comments Free Thyroxine (test code = 3024-7) 1.05 0.8-1.8 [facility] HospitalCreatine Olcksy0356-25-15 14:58:00* Test Item Value Reference Range Interpretation Comments Creatine Kinase (test code = 2157-6) 23 29-168 L [facility] HospitalCreat[facility] Kinase VC8549-88-36 14:58:00* Test Item Value Reference Range Interpretation Comments Creatine Kinase MB (test code = 50995-0) 0.60 0-5.0 [facility] HospitalTroponin B0976-25-28 14:58:00* Test Item Value Reference Range Interpretation Comments Troponin I (test code = WLZ8123) < 0.001 0-0.300 [facility] HospitalCreatine Iicynm8733-87-28 14:58:00* Test Item Value Reference Range Interpretation Comments Creatine Kinase (test code = 2157-6) 23 29-168 L [facility] HospitalCreat[facility] Kinase AW8703-11-66 14:58:00* Test Item Value Reference Range Interpretation Comments Creatine Kinase MB (test code = 74300-9) 0.60 0-5.0 [place] 27431019-06-27 14:58:00* Test Item Value Reference Range Interpretation Comments Troponin I (test code = AKT8183) < 0.001 0-0.300 [facility] HospitalCreat[facility] Bwzwsk3705-18-28 14:58:00* Test Item Value Reference Range Interpretation Comments Creatine Kinase (test code = 2157-6) 23 29-168 L [facility] HospitalCreat[facility] Kinase [id number] 14:58:00* Test Item Value Reference Range Interpretation Comments Creatine Kinase MB (test code = 41388-2) 0.60 0-5.0 [place] 27431019-06-27 14:58:00* Test Item Value Reference Range Interpretation Comments Troponin I (test code = VDE0396) < 0.001 0-0.300 [facility] HospitalCreatine Xepzth8614-81-06 14:58:00* Test Item Value Reference Range Interpretation Comments Creatine Kinase (test code = 2157-6) 23 29-168 L [facility] HospitalCreat[facility] Kinase TB1392-68-64 14:58:00* Test Item Value Reference Range Interpretation Comments Creatine Kinase MB (test code = 39521-3) 0.60 0-5.0 [place] 27431019-06-27 14:58:00* Test Item Value Reference Range Interpretation Comments Troponin I (test code = GTE4200) < 0.001 0-0.300 [facility] Gjlsrp7661-30-16 14:58:00* Test Item Value Reference Range Interpretation Comments Creatine Kinase (test code = 2157-6) 23 29-168 L [facility] HospitalCreatine Kinase WI6549-96-12 14:58:00* Test Item Value Reference Range Interpretation Comments Creatine Kinase MB (test code = 98801-0) 0.60 0-5.0 [facility] HospitalTroponin C6625-41-65 14:58:00* Test Item Value Reference Range Interpretation Comments Troponin I (test code = QVE4608) < 0.001 0-0.300 [facility] HospitalCreatine Akfxcu2506-25-70 14:58:00* Test Item Value Reference Range Interpretation Comments Creatine Kinase (test code = 2157-6) 23 29-168 L [facility] HospitalCreat[facility] Kinase VO9745-61-12 14:58:00* Test Item Value Reference Range Interpretation Comments Creatine Kinase MB (test code = 98888-4) 0.60 0-5.0 [facility] HospitalTr[facility] [place] I7140-80-53 14:58:00* Test Item Value Reference Range Interpretation Comments Troponin I (test code = JLS1999) < 0.001 0-0.300 [facility] HospitalHemoglobin A1c Mdijtjq8671-82-75 14:27:00 * Test Item Value Reference Range Interpretation Comments Hemoglobin A1c Percent (test code = Hemoglobin A1c Percent) 11.6 4.0-7.0 H [facility] HospitalHemoglobin A1c Uponapg5869-83-19 14:27:00 * Test Item Value Reference Range Interpretation Comments Hemoglobin A1c Percent (test code = Hemoglobin A1c Percent) 11.6 4.0-7.0 H [facility] HospitalHemoglobin A1c Xsfsyqe4747-00-47 14:27:00 * Test Item Value Reference Range Interpretation Comments Hemoglobin A1c Percent (test code = Hemoglobin A1c Percent) 11.6 4.0-7.0 H [facility] HospitalHemoglobin A1c Ttuzyyn3513-86-53 14:27:00 * Test Item Value Reference Range Interpretation Comments Hemoglobin A1c Percent (test code = Hemoglobin A1c Percent) 11.6 4.0-7.0 H [facility] HospitalHemoglobin A1c Nacfnxj6545-31-30 14:27:00 * Test Item Value Reference Range Interpretation Comments Hemoglobin A1c Percent (test code = Hemoglobin A1c Percent) 11.6 4.0-7.0 H [facility] HospitalHemoglobin A1c Ocrnore5175-89-93 14:27:00 * Test Item Value Reference Range Interpretation Comments Hemoglobin A1c Percent (test code = Hemoglobin A1c Percent) 11.6 4.0-7.0 H [facility] HospitalB-Type Natriuretic Qeswusd4983-96-53 06:11:00* Test Item Value Reference Range Interpretation Comments B-Type Natriuretic Peptide (test code = 22112-4) 14.3 0-100 [facility] HospitalB[facility] Natriuretic Rvqbxvv8425-74-53 06:11:00* Test Item Value Reference Range Interpretation Comments B-Type Natriuretic Peptide (test code = 63426-3) 14.3 0-100 [facility] HospitalB[facility] Natriuretic Crzbtvb1996-25-92 06:11:00* Test Item Value Reference Range Interpretation Comments B-Type Natriuretic Peptide (test code = 65768-2) 14.3 0-100 [facility] HospitalB[facility] Natriuretic Khfzflw6173-00-21 06:11:00* Test Item Value Reference Range Interpretation Comments B-Type Natriuretic Peptide (test code = 49087-7) 14.3 0-100 [facility] HospitalB[facility] Natriuretic Vlqwmge7032-06-31 06:11:00* Test Item Value Reference Range Interpretation Comments B-Type Natriuretic Peptide (test code = 91895-3) 14.3 0-100 [facility] HospitalB[facility] Natriuretic Iklpbac5836-63-32 06:11:00* Test Item Value Reference Range Interpretation Comments B-Type Natriuretic Peptide (test code = 10924-3) 14.3 0-100 [facility] HospitalUrine BMR5685-78-83 21:13:00* Test Item Value Reference Range Interpretation Comments Urine WBC (test code = 5821-4) NONE 0-5 [facility] HospitalU[facility] MCN7511-21-55 21:13:00* Test Item Value Reference Range Interpretation Comments Urine RBC (test code = 78955-4) NONE 0-5 [facility] HospitalU[facility] Hklbukwz0174-85-35 21:13:00* Test Item Value Reference Range Interpretation Comments Urine Bacteria (test code = 77263-0) FEW NONE [facility] HospitalU[facility] Epithelial Lhspi9237-44-70 21:13:00 * Test Item Value Reference Range Interpretation Comments Urine Epithelial Cells (test code = 81307-8) MANY NONE [facility] HospitalU[facility] WKN6805-97-88 21:13:00* Test Item Value Reference Range Interpretation Comments Urine WBC (test code = 5821-4) NONE 0-5 [facility] HospitalU[facility] YEG5409-00-24 21:13:00* Test Item Value Reference Range Interpretation Comments Urine RBC (test code = 52115-1) NONE 0-5 [facility] Wwkiapcp4431-10-82 21:13:00* Test Item Value Reference Range Interpretation Comments Urine Bacteria (test code = 61047-8) FEW NONE [facility] HospitalU[facility] Epithelial Dwkwu8961-99-41 21:13:00 * Test Item Value Reference Range Interpretation Comments Urine Epithelial Cells (test code = 79701-5) MANY NONE [facility] UTW0932-36-03 21:13:00* Test Item Value Reference Range Interpretation Comments Urine WBC (test code = 5821-4) NONE 0-5 [facility] HospitalU[facility] RJZ0979-00-47 21:13:00* Test Item Value Reference Range Interpretation Comments Urine RBC (test code = 06820-0) NONE 0-5 [facility] Emfqsboo5378-99-50 21:13:00* Test Item Value Reference Range Interpretation Comments Urine Bacteria (test code = 76113-4) FEW NONE [facility] HospitalU[facility] Epithelial Pznep4505-42-16 21:13:00 * Test Item Value Reference Range Interpretation Comments Urine Epithelial Cells (test code = 69496-2) MANY NONE [facility] XMO4641-31-58 21:13:00* Test Item Value Reference Range Interpretation Comments Urine WBC (test code = 5821-4) NONE 0-5 [facility] OQG3882-98-40 21:13:00* Test Item Value Reference Range Interpretation Comments Urine RBC (test code = 64886-0) NONE 0-5 [facility] Rhddvjat5844-36-35 21:13:00* Test Item Value Reference Range Interpretation Comments Urine Bacteria (test code = 12042-2) FEW NONE [facility] HospitalU[facility] Epithelial Xtvfb7961-79-19 21:13:00 * Test Item Value Reference Range Interpretation Comments Urine Epithelial Cells (test code = 65858-8) MANY NONE [facility] BAN9104-60-67 21:13:00* Test Item Value Reference Range Interpretation Comments Urine WBC (test code = 5821-4) NONE 0-5 [facility] TBI0137-79-03 21:13:00* Test Item Value Reference Range Interpretation Comments Urine RBC (test code = 64158-3) NONE 0-5 [facility] Amqzcspg7281-80-66 21:13:00* Test Item Value Reference Range Interpretation Comments Urine Bacteria (test code = 51210-7) FEW NONE [facility] Epithelial Fwpan1124-30-50 21:13:00 * Test Item Value Reference Range Interpretation Comments Urine Epithelial Cells (test code = 44694-8) MANY NONE [facility] Hospital[facility] IFX4582-05-88 21:13:00* Test Item Value Reference Range Interpretation Comments Urine WBC (test code = 5821-4) NONE 0-5 [facility] CRT5881-39-09 21:13:00* Test Item Value Reference Range Interpretation Comments Urine RBC (test code = 15056-1) NONE 0-5 [facility] Bkcocqxs1449-04-49 21:13:00* Test Item Value Reference Range Interpretation Comments Urine Bacteria (test code = 56113-6) FEW NONE [facility] Epithelial Ruwnr2092-78-21 21:13:00 * Test Item Value Reference Range Interpretation Comments Urine Epithelial Cells (test code = 67174-6) MANY NONE [facility] Hospital[facility] Enlnb3616-15-61 21:08:00* Test Item Value Reference Range Interpretation Comments Urine Color (test code = 5778-6) YELLOW YELLOW [facility] HospitalU[facility] Aovzhpc7259-55-02 21:08:00* Test Item Value Reference Range Interpretation Comments Urine Clarity (test code = 26916-7) CLEAR CLEAR [facility] HospitalU[facility] Specific Jmjsoug4881-54-45 21:08:00 * Test Item Value Reference Range Interpretation Comments Urine Specific [place] (test code = 5811-5) <=1.005 1.010-1.02 5 [facility] HospitalU[facility] jO5922-05-69 21:08:00* Test Item Value Reference Range Interpretation Comments Urine pH (test code = 81065-7) 6 5-7 [facility] Leukocyte Lfpvwzot2576-48-58 21:08:00* Test Item Value Reference Range Interpretation Comments Urine Leukocyte Esterase (test code = 38978-4) NEGATIVE NEGATIV E [facility] Nupgmux5623-74-78 21:08:00* Test Item Value Reference Range Interpretation Comments Urine Nitrite (test code = 63059-9) NEGATIVE NEGATIVE [facility] Qorrkry6103-90-89 21:08:00* Test Item Value Reference Range Interpretation Comments Urine Protein (test code = 06741-1) NEGATIVE NEGATIVE [facility] HospitalU[facility] Glucose (UA)2019-01-16 21:08:00* Test Item Value Reference Range Interpretation Comments Urine Glucose (UA) (test code = 44933-6) 3+ NEGATIVE [facility] Twzzgvp7023-91-97 21:08:00* Test Item Value Reference Range Interpretation Comments Urine Ketones (test code = 15251-2) NEGATIVE NEGATIVE [facility] Izlpvxhekhtb1680-25-36 21:08:00* Test Item Value Reference Range Interpretation Comments Urine Urobilinogen (test code = 15593-8) 0.2 0.2-1 [facility] Aexyjccsn6394-13-04 21:08:00* Test Item Value Reference Range Interpretation Comments Urine Bilirubin (test code = 1977-8) NEGATIVE NEGATIVE [facility] Lavmx2792-76-86 21:08:00* Test Item Value Reference Range Interpretation Comments Urine Blood (test code = 25518-1) NEGATIVE NEGATIVE [facility] Elxmh1267-72-44 21:08:00* Test Item Value Reference Range Interpretation Comments Urine Color (test code = 5778-6) YELLOW YELLOW [facility] Ejculya0170-46-23 21:08:00* Test Item Value Reference Range Interpretation Comments Urine Clarity (test code = 67037-8) CLEAR CLEAR [facility] Hospital[facility] Specific Nsbdvxs3126-05-33 21:08:00 * Test Item Value Reference Range Interpretation Comments Urine Specific [place] (test code = 5811-5) <=1.005 1.010-1.02 5 [facility] eF4234-71-78 21:08:00* Test Item Value Reference Range Interpretation Comments Urine pH (test code = 66418-5) 6 5-7 [facility] Leukocyte Npuaetdz9658-68-82 21:08:00* Test Item Value Reference Range Interpretation Comments Urine Leukocyte Esterase (test code = 50284-0) NEGATIVE NEGATIV E [facility] Oxsbfkl9465-95-86 21:08:00* Test Item Value Reference Range Interpretation Comments Urine Nitrite (test code = 94123-6) NEGATIVE NEGATIVE [facility] Itztxev5787-89-25 21:08:00* Test Item Value Reference Range Interpretation Comments Urine Protein (test code = 68580-9) NEGATIVE NEGATIVE [facility] Glucose (UA)2019-01-16 21:08:00* Test Item Value Reference Range Interpretation Comments Urine Glucose (UA) (test code = 59494-8) 3+ NEGATIVE [facility] Ayjucyw6013-31-77 21:08:00* Test Item Value Reference Range Interpretation Comments Urine Ketones (test code = 29956-6) NEGATIVE NEGATIVE [facility] Uvdbjebjumbf3320-93-55 21:08:00* Test Item Value Reference Range Interpretation Comments Urine Urobilinogen (test code = 14480-9) 0.2 0.2-1 [facility] Hvwpaigag6926-13-22 21:08:00* Test Item Value Reference Range Interpretation Comments Urine Bilirubin (test code = 1977-8) NEGATIVE NEGATIVE [facility] Npojd7142-89-94 21:08:00* Test Item Value Reference Range Interpretation Comments Urine Blood (test code = 45910-3) NEGATIVE NEGATIVE [facility] Mcyfj2050-88-07 21:08:00* Test Item Value Reference Range Interpretation Comments Urine Color (test code = 5778-6) YELLOW YELLOW [facility] Dwypljr5462-14-09 21:08:00* Test Item Value Reference Range Interpretation Comments Urine Clarity (test code = 17949-1) CLEAR CLEAR [facility] Specific Xyrxlxr1302-76-48 21:08:00 * Test Item Value Reference Range Interpretation Comments Urine Specific [place] (test code = 5811-5) <=1.005 1.010-1.02 5 [facility] [id number] 21:08:00* Test Item Value Reference Range Interpretation Comments Urine pH (test code = 79365-1) 6 5-7 [facility] Leukocyte Apcbskan3616-29-63 21:08:00* Test Item Value Reference Range Interpretation Comments Urine Leukocyte Esterase (test code = 63665-4) NEGATIVE NEGATIV E [facility] Fkmxszx2146-85-72 21:08:00* Test Item Value Reference Range Interpretation Comments Urine Nitrite (test code = 96471-2) NEGATIVE NEGATIVE [facility] Hjsnusw2273-60-28 21:08:00* Test Item Value Reference Range Interpretation Comments Urine Protein (test code = 04382-3) NEGATIVE NEGATIVE [facility] Glucose (UA)2019-01-16 21:08:00* Test Item Value Reference Range Interpretation Comments Urine Glucose (UA) (test code = 24549-6) 3+ NEGATIVE [facility] Rfkrvzt1744-27-53 21:08:00* Test Item Value Reference Range Interpretation Comments Urine Ketones (test code = 44752-9) NEGATIVE NEGATIVE [facility] Idzkaaifkcag0905-25-32 21:08:00* Test Item Value Reference Range Interpretation Comments Urine Urobilinogen (test code = 91842-5) 0.2 0.2-1 [facility] Tfbffddwa8812-25-00 21:08:00* Test Item Value Reference Range Interpretation Comments Urine Bilirubin (test code = 1977-8) NEGATIVE NEGATIVE [facility] Hlrlu1149-78-44 21:08:00* Test Item Value Reference Range Interpretation Comments Urine Blood (test code = 84494-9) NEGATIVE NEGATIVE [facility] Lajsc3707-44-04 21:08:00* Test Item Value Reference Range Interpretation Comments Urine Color (test code = 5778-6) YELLOW YELLOW [facility] Qrhydhe6384-82-63 21:08:00* Test Item Value Reference Range Interpretation Comments Urine Clarity (test code = 60001-3) CLEAR CLEAR [facility] Specific Rjtyyrt8392-50-88 21:08:00 * Test Item Value Reference Range Interpretation Comments Urine Specific [place] (test code = 5811-5) <=1.005 1.010-1.02 5 [facility] [id number] 21:08:00* Test Item Value Reference Range Interpretation Comments Urine pH (test code = 19592-9) 6 5-7 [facility] Leukocyte Khpndoxa9708-07-01 21:08:00* Test Item Value Reference Range Interpretation Comments Urine Leukocyte Esterase (test code = 54502-8) NEGATIVE NEGATIV E [facility] Wvpuwml6689-81-97 21:08:00* Test Item Value Reference Range Interpretation Comments Urine Nitrite (test code = 85221-5) NEGATIVE NEGATIVE [facility] Ijoavzk4313-95-99 21:08:00* Test Item Value Reference Range Interpretation Comments Urine Protein (test code = 76841-0) NEGATIVE NEGATIVE [facility] Glucose (UA)2019-01-16 21:08:00* Test Item Value Reference Range Interpretation Comments Urine Glucose (UA) (test code = 17888-4) 3+ NEGATIVE [facility] Bofuwyu2032-19-70 21:08:00* Test Item Value Reference Range Interpretation Comments Urine Ketones (test code = 10285-4) NEGATIVE NEGATIVE [facility] Mfaxtyerjqle8909-55-81 21:08:00* Test Item Value Reference Range Interpretation Comments Urine Urobilinogen (test code = 19074-6) 0.2 0.2-1 [facility] Svfrwxlsz3214-63-56 21:08:00* Test Item Value Reference Range Interpretation Comments Urine Bilirubin (test code = 1977-8) NEGATIVE NEGATIVE [facility] Ahuil6222-30-95 21:08:00* Test Item Value Reference Range Interpretation Comments Urine Blood (test code = 07879-6) NEGATIVE NEGATIVE [facility] Mxaix6065-67-76 21:08:00* Test Item Value Reference Range Interpretation Comments Urine Color (test code = 5778-6) YELLOW YELLOW [facility] Iorqwir5256-85-53 21:08:00* Test Item Value Reference Range Interpretation Comments Urine Clarity (test code = 87840-0) CLEAR CLEAR [facility] Specific Bfdbtre9379-43-31 21:08:00 * Test Item Value Reference Range Interpretation Comments Urine Specific [place] (test code = 5811-5) <=1.005 1.010-1.02 5 [facility] zN3613-40-90 21:08:00* Test Item Value Reference Range Interpretation Comments Urine pH (test code = 16341-1) 6 5-7 [facility] Leukocyte Cabwiitg3133-20-03 21:08:00* Test Item Value Reference Range Interpretation Comments Urine Leukocyte Esterase (test code = 29043-3) NEGATIVE NEGATIV E [facility] Yfknrui1680-76-34 21:08:00* Test Item Value Reference Range Interpretation Comments Urine Nitrite (test code = 82127-4) NEGATIVE NEGATIVE [facility] Jcuprtl3309-25-86 21:08:00* Test Item Value Reference Range Interpretation Comments Urine Protein (test code = 55521-9) NEGATIVE NEGATIVE [facility] Glucose (UA)2019-01-16 21:08:00* Test Item Value Reference Range Interpretation Comments Urine Glucose (UA) (test code = 61068-5) 3+ NEGATIVE [facility] Hxqjdrm4753-56-06 21:08:00* Test Item Value Reference Range Interpretation Comments Urine Ketones (test code = 80623-1) NEGATIVE NEGATIVE [facility] Nqdzhowydimo7843-24-91 21:08:00* Test Item Value Reference Range Interpretation Comments Urine Urobilinogen (test code = 35420-0) 0.2 0.2-1 [facility] Hkwzbthoz5404-58-66 21:08:00* Test Item Value Reference Range Interpretation Comments Urine Bilirubin (test code = 1977-8) NEGATIVE NEGATIVE [facility] Mssbi8830-87-40 21:08:00* Test Item Value Reference Range Interpretation Comments Urine Blood (test code = 17034-2) NEGATIVE NEGATIVE [facility] Urioo6213-45-00 21:08:00* Test Item Value Reference Range Interpretation Comments Urine Color (test code = 5778-6) YELLOW YELLOW [facility] Jhmyatc6920-47-99 21:08:00* Test Item Value Reference Range Interpretation Comments Urine Clarity (test code = 64416-8) CLEAR CLEAR [facility] Specific Bllsmah8545-88-73 21:08:00 * Test Item Value Reference Range Interpretation Comments Urine Specific [place] (test code = 5811-5) <=1.005 1.010-1.02 5 [facility] [id number] 21:08:00* Test Item Value Reference Range Interpretation Comments Urine pH (test code = 20765-6) 6 5-7 [facility] Leukocyte Hxogmwvy7963-84-12 21:08:00* Test Item Value Reference Range Interpretation Comments Urine Leukocyte Esterase (test code = 08622-0) NEGATIVE NEGATIV E [facility] Znasohs1311-46-20 21:08:00* Test Item Value Reference Range Interpretation Comments Urine Nitrite (test code = 74849-2) NEGATIVE NEGATIVE [facility] Bjwswfy8396-56-31 21:08:00* Test Item Value Reference Range Interpretation Comments Urine Protein (test code = 01805-4) NEGATIVE NEGATIVE [facility] Glucose (UA)2019-01-16 21:08:00* Test Item Value Reference Range Interpretation Comments Urine Glucose (UA) (test code = 99510-8) 3+ NEGATIVE [facility] Jbocrto0824-11-78 21:08:00* Test Item Value Reference Range Interpretation Comments Urine Ketones (test code = 46220-9) NEGATIVE NEGATIVE [facility] Xyqdcuuvkggq0508-35-78 21:08:00* Test Item Value Reference Range Interpretation Comments Urine Urobilinogen (test code = 85022-0) 0.2 0.2-1 [facility] Ewinqxcoh6002-28-45 21:08:00* Test Item Value Reference Range Interpretation Comments Urine Bilirubin (test code = 1977-8) NEGATIVE NEGATIVE [facility] Zkxeo6478-76-88 21:08:00* Test Item Value Reference Range Interpretation Comments Urine Blood (test code = 66231-4) NEGATIVE NEGATIVE [facility] HospitalCHEST SINGLE (PORTABLE)2019-01-16 20:38:00 [place] [address] Patient Name: KALYANI TALAVERA MR #: [id number] : 1955 Age/Sex: 63/F Req #: [id number] Adm Physician: Ordered by: JACQUES JANE MD Report #: [id number] Location: ER Room/Bed: Procedure: 0626-00 66 DX/CHEST SINGLE (PORTABLE) Exam Date: 01/16/19 [...] adjacent atelectasis. Signed by: Dr. John Lowe DMayiO., M.M.M. on 01/16/2019 8:41 PM Dictated By: JOHN LOWE DO 40 Transcribed By: JIM on 01/16/192040 COPY TO: JACQUES JANE MD Bedside Noyiupk8065-64-72 11:08:00* Test Item Value Reference Range Interpretation Comments Bedside Glucose (test code = 89584-5) 289 70-120 H Meter ID: [id number] [facility] Centerodium Level 2019-01-13 05:34:00* Test Item Value Reference Range Interpretation Comments Sodium Level (test code = 2951-2) 138 136-145 [facility] HospitalPotassium Hgglk2425-54-49 05:34:00* Test Item Value Reference Range Interpretation Comments Potassium Level (test code = 2823-3) 3.8 3.5-5.1 [facility] HospitalChloride Rflfj5287-20-03 05:34:00* Test Item Value Reference Range Interpretation Comments Chloride Level (test code = 2075-0) 105 98-107 [facility] HospitalCarbon Dioxide Aiaay7554-24-46 05:34:00* Test Item Value Reference Range Interpretation Comments Carbon Dioxide Level (test code = 2028-9) 25 22-29 [facility] HospitalAnion Pwn1114-32-20 05:34:00* Test Item Value Reference Range Interpretation Comments Anion Gap (test code = 32522-7) 11.8 8-16 [facility] HospitalBlood Urea Gzgsekcn0701-33-47 05:34:00* Test Item Value Reference Range Interpretation Comments Blood Urea Nitrogen (test code = 3094-0) 16 7-26 [facility] HospitalCreatinine2019-06-23 05:34:00* Test Item Value Reference Range Interpretation Comments Creatinine (test code = 2160-0) 0.78 0.57-1.11 [facility] HospitalBUN/Creatinine Saqnl0488-20-53 05:34:00* Test Item Value Reference Range Interpretation Comments BUN/Creatinine Ratio (test code = 3097-3) 21 6- [facility] HospitalEstimat Glomerular Filtration Rate 2019-01-13 05:34:00* Test Item Value Reference Range Interpretation Comments Estimat Glomerular Filtration Rate (test code = 004022065) > 60 >60 Ranges were taken from the National Kidney Disease Education Program and the [facility] literature.Reference ranges:60 or greater: Uwepzf11-47 ( for 3 consecutive months): Chronic kidney disease 15 or less: Kidney failureHarris Health System Ben [facility] HospitalGlucose Bkmdz1928-39-32 05:34:00* Test Item Value Reference Range Interpretation Comments Glucose Level (test code = XRC6453) 151 74-118 H [facility] HospitalCalcium Xdcqo6969-26-89 05:34:00* Test Item Value Reference Range Interpretation Comments Calcium Level (test code = 66820-2) 8.5 8.4-10.2 [facility] HospitalTotal Mewjuzzua2505-68-65 05:34:00* Test Item Value Reference Range Interpretation Comments Total Bilirubin (test code = 1975-2) 0.3 0.2-1.2 [facility] HospitalAspartate Amino Transf (AST/SGOT) 2019-01-13 05:34:00* Test Item Value Reference Range Interpretation Comments Aspartate Amino Transf (AST/SGOT) (test code = Aspartate Amino Transf (AST/SGOT)) 12 5-34 [facility] HospitalAlanine Aminotransferase (ALT/SGPT) 2019-01-13 05:34:00* Test Item Value Reference Range Interpretation Comments Alanine Aminotransferase (ALT/SGPT) (test code = 1742-6) 16 0-55 [facility] HospitalTotal Yyfpgzb9525-23-88 05:34:00* Test Item Value Reference Range Interpretation Comments Total Protein (test code = 2885-2) 5.5 6.5-8.1 L [facility] HospitalAlbumin2019-06-23 05:34:00* Test Item Value Reference Range Interpretation Comments Albumin (test code = 1751-7) 3.0 3.5-5.0 L [facility] HospitalGlobulin2019-06-23 05:34:00* Test Item Value Reference Range Interpretation Comments Globulin (test code = 70355-9) 2.5 2.3-3.5 [facility] HospitalAlbumin/Globulin Vdfdh6584-89-26 05:34:00 * Test Item Value Reference Range Interpretation Comments Albumin/Globulin Ratio (test code = 1759-0) 1.2 0.8-2.0 [facility] HospitalAlkaline Gpqcjprjmvp0364-37-11 05:34:00* Test Item Value Reference Range Interpretation Comments Alkaline Phosphatase (test code = 6768-6) 69 40-150 [facility] HospitalWhite Blood Tygcf7101-25-84 05:17:00* Test Item Value Reference Range Interpretation Comments White Blood Count (test code = 6690-2) 5.11 4.8-10.8 [facility] HospitalRed Blood Pgbgc8401-00-43 05:17:00* Test Item Value Reference Range Interpretation Comments Red Blood Count (test code = 789-8) 4.52 3.6-5.1 [facility] HospitalHemoglobin2019-06-23 05:17:00* Test Item Value Reference Range Interpretation Comments Hemoglobin (test code = 39585-9) 11.2 12.0-16.0 L [facility] HospitalHematocrit2019-06-23 05:17:00* Test Item Value Reference Range Interpretation Comments Hematocrit (test code = 4544-3) 36.5 34.2-44.1 [facility] HospitalMean Corpuscular Srvikf9384-90-04 05:17:00* Test Item Value Reference Range Interpretation Comments Mean Corpuscular Volume (test code = 787-2) 80.8 81-99 L [facility] HospitalMean Corpuscular Qbvumwzflz0187-70-96 05:17:00* Test Item Value Reference Range Interpretation Comments Mean Corpuscular Hemoglobin (test code = 785-6) 24.8 28-32 L [facility] HospitalMean Corpuscular Hemoglobin Concent 2019-01-13 05:17:00* Test Item Value Reference Range Interpretation Comments Mean Corpuscular Hemoglobin Concent (test code = 786-4) 30.7 31-35 L [facility] HospitalRed Cell Distribution Hhnzj3690-89-70 05:17:00* Test Item Value Reference Range Interpretation Comments Red Cell Distribution Width (test code = 34786-5) 14.9 11.7 -14.4 H [facility] HospitalPlatelet Ckzxc2680-13-92 05:17:00* Test Item Value Reference Range Interpretation Comments Platelet Count (test code = 777-3) 149 140-360 [facility] HospitalNeutrophils (%) (Auto)2019-01-13 05:17:00 * Test Item Value Reference Range Interpretation Comments Neutrophils (%) (Auto) (test code = 22231-6) 67.6 38.7-80.0 [facility] HospitalLymphocytes (%) (Auto)2019-01-13 05:17:00 * Test Item Value Reference Range Interpretation Comments Lymphocytes (%) (Auto) (test code = 736-9) 20.4 18.0-39.1 [facility] HospitalMonocytes (%) (Auto)2019-01-13 05:17:00* Test Item Value Reference Range Interpretation Comments Monocytes (%) (Auto) (test code = 5905-5) 5.9 4.4-11.3 [facility] HospitalEosinophils (%) (Auto)2019-01-13 05:17:00 * Test Item Value Reference Range Interpretation Comments Eosinophils (%) (Auto) (test code = 713-8) 4.1 0.0-6.0 [facility] HospitalBasophils (%) (Auto)2019-01-13 05:17:00* Test Item Value Reference Range Interpretation Comments Basophils (%) (Auto) (test code = 706-2) 1.2 0.0-1.0 H [facility] HospitalIM GRANULOCYTES %2019-01-13 05:17:00* Test Item Value Reference Range Interpretation Comments IM GRANULOCYTES % (test code = IM GRANULOCYTES %) 0.8 0.0- 1.0 [facility] HospitalNeutrophils # (Auto)2019-01-13 05:17:00* Test Item Value Reference Range Interpretation Comments Neutrophils # (Auto) (test code = 751-8) 3.5 2.1-6.9 [facility] HospitalLymphocytes # (Auto)2019-01-13 05:17:00* Test Item Value Reference Range Interpretation Comments Lymphocytes # (Auto) (test code = 83422-8) 1.0 1.0-3.2 [facility] HospitalMonocytes # (Auto)2019-01-13 05:17:00* Test Item Value Reference Range Interpretation Comments Monocytes # (Auto) (test code = 742-7) 0.3 0.2-0.8 [facility] HospitalEosinophils # (Auto)2019-01-13 05:17:00* Test Item Value Reference Range Interpretation Comments Eosinophils # (Auto) (test code = 711-2) 0.2 0.0-0.4 [facility] HospitalBasophils # (Auto)2019-01-13 05:17:00* Test Item Value Reference Range Interpretation Comments Basophils # (Auto) (test code = 704-7) 0.1 0.0-0.1 [facility] HospitalAbsolute Immature Granulocyte (auto 2019-01-13 05:17:00* Test Item Value Reference Range Interpretation Comments Absolute Immature Granulocyte (auto (joseph t code = Absolute Immature Granulocyte (auto) 0.04 0-0.1 [facility] HospitalHemoglobin A1c Jsobdzv4751-18-71 13:04:00 * Test Item Value Reference Range Interpretation Comments Hemoglobin A1c Percent (test code = Hemoglobin A1c Percent) 11.6 4.0-7.0 H [facility] HospitalUrine LFZ4793-72-04 18:54:00* Test Item Value Reference Range Interpretation Comments Urine WBC (test code = 5821-4) NONE 0-5 [facility] HospitalUrine WME5269-60-31 18:54:00* Test Item Value Reference Range Interpretation Comments Urine RBC (test code = 77872-4) NONE 0-5 [facility] HospitalUrine Vwjlpqkz1795-39-64 18:54:00* Test Item Value Reference Range Interpretation Comments Urine Bacteria (test code = 18346-0) FEW NONE [facility] HospitalUrine Epithelial Xdjcw8807-64-50 18:54:00 * Test Item Value Reference Range Interpretation Comments Urine Epithelial Cells (test code = 92848-4) FEW NONE [facility] HospitalCreatine Kinase XG5580-42-36 18:44:00* Test Item Value Reference Range Interpretation Comments Creatine Kinase MB (test code = 02854-8) 1.00 0-5.0 [facility] HospitalTroponin L7532-69-88 18:44:00* Test Item Value Reference Range Interpretation Comments Troponin I (test code = HDW0331) 0.002 0-0.300 [facility] HospitalCHEST SINGLE (PORTABLE)2019-01-11 18:42:00 [place] [address] Patient Name: KALYANI TALAVERA MR #: [id number] : 1955 Age/Sex: 63/F Req #: [id number] [facility] Physician: Ordered by: FLO TOLBERT MD Report #: [id number] Location: ER Room/Bed: Procedure: [id number] DX/C HEST SINGLE (PORTABLE) Exam Date: Exam [...] 01/11/191842 COPY TO: FLO TOLBERT MD Creatine Ziwpwp7418-36-57 18:39:00* Test Item Value Reference Range Interpretation Comments Creatine Kinase (test code = 2157-6) 29 29-168 [facility] HospitalUrine Cdwpp4044-45-77 18:38:00* Test Item Value Reference Range Interpretation Comments Urine Color (test code = 5778-6) YELLOW YELLOW [facility] HospitalUrine Svilptw6119-77-03 18:38:00* Test Item Value Reference Range Interpretation Comments Urine Clarity (test code = 59278-7) CLEAR CLEAR [facility] HospitalUrine Specific Xugbxfy9126-64-42 18:38:00 * Test Item Value Reference Range Interpretation Comments Urine Specific [place] (test code = 5811-5) 1.010 1.010-1.02 5 [facility] HospitalUrine eL9066-72-01 18:38:00* Test Item Value Reference Range Interpretation Comments Urine pH (test code = 76513-8) 6 5-7 [facility] HospitalUrine Leukocyte Sscqowhx7018-18-50 18:38:00* Test Item Value Reference Range Interpretation Comments Urine Leukocyte Esterase (test code = 56502-1) NEGATIVE NEGATIV E [facility] HospitalUrine Biewump9131-95-68 18:38:00* Test Item Value Reference Range Interpretation Comments Urine Nitrite (test code = 70424-8) NEGATIVE NEGATIVE [facility] Uujuvaz0061-18-11 18:38:00* Test Item Value Reference Range Interpretation Comments Urine Protein (test code = 50464-4) NEGATIVE NEGATIVE [facility] HospitalUrine Glucose (UA)2019-01-11 18:38:00* Test Item Value Reference Range Interpretation Comments Urine Glucose (UA) (test code = 17439-4) 3+ NEGATIVE [facility] HospitalUrine Vergrzi8246-85-99 18:38:00* Test Item Value Reference Range Interpretation Comments Urine Ketones (test code = 20969-8) NEGATIVE NEGATIVE [facility] Tpqdolnpcgjd4830-02-64 18:38:00* Test Item Value Reference Range Interpretation Comments Urine Urobilinogen (test code = 81227-0) 0.2 0.2-1 [facility] HospitalUrine Zzlzcwxea9475-00-42 18:38:00* Test Item Value Reference Range Interpretation Comments Urine Bilirubin (test code = 1977-8) NEGATIVE NEGATIVE [facility] HospitalUrine Czkox5539-04-15 18:38:00* Test Item Value Reference Range Interpretation Comments Urine Blood (test code = 57228-0) NEGATIVE NEGATIVE [facility] HospitalProthrombin Gfna3385-25-63 18:32:00* Test Item Value Reference Range Interpretation Comments Prothrombin Time (test code = 5902-2) 12.7 11.9-14.5 [facility] HospitalProthromb Time International Ratio 2019-01-11 18:32:00* Test Item Value Reference Range Interpretation Comments Prothromb Time International Ratio (test code = 6301-6) 0.91 Oral Anticoagulant Therapy INR Values:1. Low Intensity Therapy 1.5 - 2.02 . Moderate Intensity Therapy 2.0 - 3.03. High Intensity Therapy(1) 2.5 - 3. 54. High Intensity Therapy(2) 3.0 - 4.05. Panic Value INR > 5.0 [facility] HospitalActivated Partial Thromboplast Time 2019-01-11 18:32:00* Test Item Value Reference Range Interpretation Comments Activated Partial Thromboplast Time (test code = 06265-0) 24.1 23.8-35.5 [facility] HospitalProthrombin Ohli9489-05-94 18:32:00* Test Item Value Reference Range Interpretation Comments Prothrombin Time (test code = 5902-2) 12.7 11.9-14.5 [facility] HospitalProthromb Time International Ratio 2019-01-11 18:32:00* Test Item Value Reference Range Interpretation Comments Prothromb Time International Ratio (test code = 6301-6) 0.91 Oral Anticoagulant Therapy INR Values:1. Low Intensity Therapy 1.5 - 2.02 . Moderate Intensity Therapy 2.0 - 3.03. High Intensity Therapy(1) 2.5 - 3. 54. High Intensity Therapy(2) 3.0 - 4.05. Panic Value INR > 5.0 [facility] HospitalActivated Partial Thromboplast Time 2019-01-11 18:32:00* Test Item Value Reference Range Interpretation Comments Activated Partial Thromboplast Time (test code = 14275-3) 24.1 23.8-35.5 [facility] HospitalProthrombin Qcmk3163-22-87 18:32:00* Test Item Value Reference Range Interpretation Comments Prothrombin Time (test code = 5902-2) 12.7 11.9-14.5 [facility] HospitalProthromb Time International Ratio 2019-01-11 18:32:00* Test Item Value Reference Range Interpretation Comments Prothromb Time International Ratio (test code = 6301-6) 0.91 Oral Anticoagulant Therapy INR Values:1. Low Intensity Therapy 1.5 - 2.02 . Moderate Intensity Therapy 2.0 - 3.03. High Intensity Therapy(1) 2.5 - 3. 54. High Intensity Therapy(2) 3.0 - 4.05. Panic Value INR > 5.0 [facility] HospitalActivated Partial Thromboplast Time 2019-01-11 18:32:00* Test Item Value Reference Range Interpretation Comments Activated Partial Thromboplast Time (test code = 26003-0) 24.1 23.8-35.5 [facility] HospitalProthrombin Mtpi8751-84-21 18:32:00* Test Item Value Reference Range Interpretation Comments Prothrombin Time (test code = 5902-2) 12.7 11.9-14.5 [facility] HospitalProthromb Time International Ratio 2019-01-11 18:32:00* Test Item Value Reference Range Interpretation Comments Prothromb Time International Ratio (test code = 6301-6) 0.91 Oral Anticoagulant Therapy INR Values:1. Low Intensity Therapy 1.5 - 2.02 . Moderate Intensity Therapy 2.0 - 3.03. High Intensity Therapy(1) 2.5 - 3. 54. High Intensity Therapy(2) 3.0 - 4.05. Panic Value INR > 5.0 [facility] HospitalActivated Partial Thromboplast Time 2019-01-11 18:32:00* Test Item Value Reference Range Interpretation Comments Activated Partial Thromboplast Time (test code = 59153-8) 24.1 23.8-35.5 [facility] HospitalProthrombin Loxj1599-35-26 18:32:00* Test Item Value Reference Range Interpretation Comments Prothrombin Time (test code = 5902-2) 12.7 11.9-14.5 [facility] HospitalProthromb Time International Ratio 2019-01-11 18:32:00* Test Item Value Reference Range Interpretation Comments Prothromb Time International Ratio (test code = 6301-6) 0.91 Oral Anticoagulant Therapy INR Values:1. Low Intensity Therapy 1.5 - 2.02 . Moderate Intensity Therapy 2.0 - 3.03. High Intensity Therapy(1) 2.5 - 3. 54. High Intensity Therapy(2) 3.0 - 4.05. Panic Value INR > 5.0 [facility] HospitalActivated Partial Thromboplast Time 2019-01-11 18:32:00* Test Item Value Reference Range Interpretation Comments Activated Partial Thromboplast Time (test code = 41672-9) 24.1 23.8-35.5 [facility] HospitalProthrombin Imof2993-36-85 18:32:00* Test Item Value Reference Range Interpretation Comments Prothrombin Time (test code = 5902-2) 12.7 11.9-14.5 [facility] HospitalProthromb Time International Ratio 2019-01-11 18:32:00* Test Item Value Reference Range Interpretation Comments Prothromb Time International Ratio (test code = 6301-6) 0.91 Oral Anticoagulant Therapy INR Values:1. Low Intensity Therapy 1.5 - 2.02 . Moderate Intensity Therapy 2.0 - 3.03. High Intensity Therapy(1) 2.5 - 3. 54. High Intensity Therapy(2) 3.0 - 4.05. Panic Value INR > 5.0 [facility] HospitalActivated Partial Thromboplast Time 2019-01-11 18:32:00* Test Item Value Reference Range Interpretation Comments Activated Partial Thromboplast Time (test code = 06996-6) 24.1 23.8-35.5 [facility] HospitalProthrombin Jyjk2670-10-06 18:32:00* Test Item Value Reference Range Interpretation Comments Prothrombin Time (test code = 5902-2) 12.7 11.9-14.5 [facility] HospitalProthromb Time International Ratio 2019-01-11 18:32:00* Test Item Value Reference Range Interpretation Comments Prothromb Time International Ratio (test code = 6301-6) 0.91 Oral Anticoagulant Therapy INR Values:1. Low Intensity Therapy 1.5 - 2.02 . Moderate Intensity Therapy 2.0 - 3.03. High Intensity Therapy(1) 2.5 - 3. 54. High Intensity Therapy(2) 3.0 - 4.05. Panic Value INR > 5.0 [facility] HospitalActivated Partial Thromboplast Time 2019-01-11 18:32:00* Test Item Value Reference Range Interpretation Comments Activated Partial Thromboplast Time (test code = 19170-7) 24.1 23.8-35.5 [facility] HospitalCHEST 2 [id number] 17:48:00 [facility] [address] [address] Patient Name: KALYANI TALAVERA MR #: [id number] : 1955 Age/Sex: 63/F Req #: [id number] Adm Physician: Ordered by: BOYD NICHOLS NP Report #: [id number] Location: ER Room/Bed: Procedure: [id number] D X/CHEST 2 VIEWS Exam Date: 01/10/19 Exam Time: 1724 REPORT STATUS: Signed EXAMINATIO N: CHEST 2 VIEWS INDICATION: Hyperglycemia crackles bases 62138 620 1724 COMPARISON: Chest x-ray 07/01/2018 FINDINGS: [...] on 01/10/191749 COPY T O: BOYD NICHOLS BUTTONHOLE MARKER B-Type Natriuretic Yofepuj6678-11-52 17:30:00* Test Item Value Reference Range Interpretation Comments B-Type Natriuretic Peptide (test code = 75154-6) 24.4 0-100 [facility] HospitalB-Type Natriuretic Wnjahnu8704-28-24 17:30:00* Test Item Value Reference Range Interpretation Comments B-Type Natriuretic Peptide (test code = 80139-3) 24.4 0-100 [facility] HospitalUrine [id number] 17:03:00* Test Item Value Reference Range Interpretation Comments Urine WBC (test code = 5821-4) 0-5 0-5 [facility] HospitalUrine [id number] 17:03:00* Test Item Value Reference Range Interpretation Comments Urine RBC (test code = 46344-8) NONE 0-5 [facility] HospitalUrine Zmjogzry5396-26-99 17:03:00* Test Item Value Reference Range Interpretation Comments Urine Bacteria (test code = 77729-9) MODERATE NONE H [facility] HospitalUrine Epithelial Qekmv0342-60-78 17:03:00 * Test Item Value Reference Range Interpretation Comments Urine Epithelial Cells (test code = 46931-8) MANY NONE [facility] HospitalUrine Zqjyd7813-02-08 17:00:00* Test Item Value Reference Range Interpretation Comments Urine Color (test code = 5778-6) YELLOW YELLOW [facility] HospitalUrine Yjkhwzd9353-64-43 17:00:00* Test Item Value Reference Range Interpretation Comments Urine Clarity (test code = 38574-7) CLEAR CLEAR [facility] HospitalUrine Specific Nhgkefj7078-39-65 17:00:00 * Test Item Value Reference Range Interpretation Comments Urine Specific [place] (test code = 5811-5) 1.020 1.010-1.02 5 [facility] HospitalUrine bI0264-22-29 17:00:00* Test Item Value Reference Range Interpretation Comments Urine pH (test code = 78507-8) 6 5-7 [facility] HospitalUrine Leukocyte Buxnfekn7283-18-24 17:00:00* Test Item Value Reference Range Interpretation Comments Urine Leukocyte Esterase (test code = 13925-2) NEGATIVE NEGATIV E [facility] HospitalUrine Qokgwsx8575-22-52 17:00:00* Test Item Value Reference Range Interpretation Comments Urine Nitrite (test code = 31343-5) NEGATIVE NEGATIVE [facility] HospitalUrine Pedrmkk0801-88-59 17:00:00* Test Item Value Reference Range Interpretation Comments Urine Protein (test code = 77214-1) NEGATIVE NEGATIVE [facility] Glucose (UA)2019-01-10 17:00:00* Test Item Value Reference Range Interpretation Comments Urine Glucose (UA) (test code = 84703-4) 3+ NEGATIVE [facility] HospitalUrine Kfuptmu7221-88-62 17:00:00* Test Item Value Reference Range Interpretation Comments Urine Ketones (test code = 57910-3) NEGATIVE NEGATIVE [facility] HospitalUrine Zkdaemqqxqte4542-05-42 17:00:00* Test Item Value Reference Range Interpretation Comments Urine Urobilinogen (test code = 29976-3) 0.2 0.2-1 [facility] HospitalUrine Lbmcfvowi8601-82-75 17:00:00* Test Item Value Reference Range Interpretation Comments Urine Bilirubin (test code = 1977-8) NEGATIVE NEGATIVE [facility] HospitalUrine Glflx1098-82-72 17:00:00* Test Item Value Reference Range Interpretation Comments Urine Blood (test code = 27061-1) NEGATIVE NEGATIVE [facility] HospitalCreatine Kinase FX8494-25-41 16:38:00* Test Item Value Reference Range Interpretation Comments Creatine Kinase MB (test code = 31257-9) 1.60 0-5.0 [facility] HospitalTroponin H5656-19-76 16:38:00* Test Item Value Reference Range Interpretation Comments Troponin I (test code = ILV2289) 0.007 0-0.300 [facility] Zimxl0230-20-10 16:33:00* Test Item Value Reference Range Interpretation Comments Sodium Level (test code = 2951-2) 135 136-145 L [facility] HospitalPotassium Xxxca7303-16-47 16:33:00* Test Item Value Reference Range Interpretation Comments Potassium Level (test code = 2823-3) 4.9 3.5-5.1 [facility] HospitalChloride Duiyz2244-86-79 16:33:00* Test Item Value Reference Range Interpretation Comments Chloride Level (test code = 2075-0) 102 98-107 [facility] HospitalCarbon Dioxide Wzgtx5599-16-63 16:33:00* Test Item Value Reference Range Interpretation Comments Carbon Dioxide Level (test code = 2028-9) 21 22-29 L [facility] HospitalAnion Yip4348-32-65 16:33:00* Test Item Value Reference Range Interpretation Comments Anion Gap (test code = 87753-5) 16.9 8-16 H [facility] HospitalBlood Urea Quhtogms3962-13-56 16:33:00* Test Item Value Reference Range Interpretation Comments Blood Urea Nitrogen (test code = 3094-0) 31 7-26 H [facility] HospitalCreatinine2019-06-20 16:33:00* Test Item Value Reference Range Interpretation Comments Creatinine (test code = 2160-0) 1.16 0.57-1.11 H [facility] HospitalBUN/Creatinine Egobm4517-77-99 16:33:00* Test Item Value Reference Range Interpretation Comments BUN/Creatinine Ratio (test code = 3097-3) 27 6-25 H [facility] HospitalEstimat Glomerular Filtration Rate 2019-01-10 16:33:00* Test Item Value Reference Range Interpretation Comments Estimat Glomerular Filtration Rate (test code = 427122535) 47 >60 L Ranges were taken from the National Kidney Disease Education Program and the [facility] Foundation literature.Reference ranges:60 or greater: Hlydny30-84 ( for 3 consecutive months): Chronic kidney disease 15 or less: Kidney failureHarris Health System Ben Taub HospitalGlucose Ysere0032-36-33 16:33:00* Test Item Value Reference Range Interpretation Comments Glucose Level (test code = OAZ8969) 326 74-118 H [facility] HospitalCalcium Glznq5233-30-81 16:33:00* Test Item Value Reference Range Interpretation Comments Calcium Level (test code = 97839-2) 9.7 8.4-10.2 [facility] HospitalTotal Xfvpkeigd0900-50-89 16:33:00* Test Item Value Reference Range Interpretation Comments Total Bilirubin (test code = 1975-2) 0.3 0.2-1.2 [facility] HospitalAspartate Amino Transf (AST/SGOT) 2019-01-10 16:33:00* Test Item Value Reference Range Interpretation Comments Aspartate Amino Transf (AST/SGOT) (test code = Aspartate Amino Transf (AST/SGOT)) 19 5-34 [facility] HospitalAlanine Aminotransferase (ALT/SGPT) 2019-01-10 16:33:00* Test Item Value Reference Range Interpretation Comments Alanine Aminotransferase (ALT/SGPT) (test code = 1742-6) 22 0-55 [facility] HospitalTotal Zqvbpna9354-10-41 16:33:00* Test Item Value Reference Range Interpretation Comments Total Protein (test code = 2885-2) 7.1 6.5-8.1 [facility] HospitalAlbumin2019-06-20 16:33:00* Test Item Value Reference Range Interpretation Comments Albumin (test code = 1751-7) 3.5 3.5-5.0 [facility] HospitalGlobulin2019-06-20 16:33:00* Test Item Value Reference Range Interpretation Comments Globulin (test code = 99525-7) 3.6 2.3-3.5 H [facility] HospitalAlbumin/Globulin Fknrp0192-99-06 16:33:00 * Test Item Value Reference Range Interpretation Comments Albumin/Globulin Ratio (test code = 1759-0) 1.0 0.8-2.0 [facility] HospitalAlkaline Xuighbonhma2891-60-48 16:33:00* Test Item Value Reference Range Interpretation Comments Alkaline Phosphatase (test code = 6768-6) 81 40-150 [facility] HospitalCreatine Ngfvxh1561-70-69 16:33:00* Test Item Value Reference Range Interpretation Comments Creatine Kinase (test code = 2157-6) 35 29-168 [facility] HospitalWhite Blood Boevw6586-16-50 16:22:00* Test Item Value Reference Range Interpretation Comments White Blood Count (test code = 6690-2) 5.88 4.8-10.8 [facility] HospitalRed Blood Cyccg5881-13-22 16:22:00* Test Item Value Reference Range Interpretation Comments Red Blood Count (test code = 789-8) 5.19 3.6-5.1 H [facility] HospitalHemoglobin2019-06-20 16:22:00* Test Item Value Reference Range Interpretation Comments Hemoglobin (test code = 16913-2) 13.0 12.0-16.0 [facility] HospitalHematocrit2019-06-20 16:22:00* Test Item Value Reference Range Interpretation Comments Hematocrit (test code = 4544-3) 42.1 34.2-44.1 [facility] HospitalMean Corpuscular Tnuoxu1411-19-11 16:22:00* Test Item Value Reference Range Interpretation Comments Mean Corpuscular Volume (test code = 787-2) 81.1 81-99 [facility] HospitalMean Corpuscular Kznhmqbvqk9081-17-16 16:22:00* Test Item Value Reference Range Interpretation Comments Mean Corpuscular Hemoglobin (test code = 785-6) 25.0 28-32 L [facility] HospitalMean Corpuscular Hemoglobin Concent 2019-01-10 16:22:00* Test Item Value Reference Range Interpretation Comments Mean Corpuscular Hemoglobin Concent (test code = 786-4) 30.9 31-35 L [facility] HospitalRed Cell Distribution Ixgcn4534-87-24 16:22:00* Test Item Value Reference Range Interpretation Comments Red Cell Distribution Width (test code = 09876-2) 15.0 11.7 -14.4 H [facility] HospitalPlatelet Ovjkn1446-46-35 16:22:00* Test Item Value Reference Range Interpretation Comments Platelet Count (test code = 777-3) 151 140-360 [facility] HospitalNeutrophils (%) (Auto)2019-01-10 16:22:00 * Test Item Value Reference Range Interpretation Comments Neutrophils (%) (Auto) (test code = 18395-5) 66.5 38.7-80.0 [facility] HospitalLymphocytes (%) (Auto)2019-01-10 16:22:00 * Test Item Value Reference Range Interpretation Comments Lymphocytes (%) (Auto) (test code = 736-9) 24.0 18.0-39.1 [facility] HospitalMonocytes (%) (Auto)2019-01-10 16:22:00* Test Item Value Reference Range Interpretation Comments Monocytes (%) (Auto) (test code = 5905-5) 5.1 4.4-11.3 [facility] HospitalEosinophils (%) (Auto)2019-01-10 16:22:00 * Test Item Value Reference Range Interpretation Comments Eosinophils (%) (Auto) (test code = 713-8) 2.7 0.0-6.0 [facility] HospitalBasophils (%) (Auto)2019-01-10 16:22:00* Test Item Value Reference Range Interpretation Comments Basophils (%) (Auto) (test code = 706-2) 1.0 0.0-1.0 [facility] HospitalIM GRANULOCYTES %2019-01-10 16:22:00* Test Item Value Reference Range Interpretation Comments IM GRANULOCYTES % (test code = IM GRANULOCYTES %) 0.7 0.0- 1.0 [facility] HospitalNeutrophils # (Auto)2019-01-10 16:22:00* Test Item Value Reference Range Interpretation Comments Neutrophils # (Auto) (test code = 751-8) 3.9 2.1-6.9 [facility] HospitalLymphocytes # (Auto)2019-01-10 16:22:00* Test Item Value Reference Range Interpretation Comments Lymphocytes # (Auto) (test code = 50426-6) 1.4 1.0-3.2 [facility] HospitalMonocytes # (Auto)2019-01-10 16:22:00* Test Item Value Reference Range Interpretation Comments Monocytes # (Auto) (test code = 742-7) 0.3 0.2-0.8 [facility] HospitalEosinophils # (Auto)2019-01-10 16:22:00* Test Item Value Reference Range Interpretation Comments Eosinophils # (Auto) (test code = 711-2) 0.2 0.0-0.4 [facility] HospitalBasophils # (Auto)2019-01-10 16:22:00* Test Item Value Reference Range Interpretation Comments Basophils # (Auto) (test code = 704-7) 0.1 0.0-0.1 [facility] HospitalAbsolute Immature Granulocyte (auto 2019-01-10 16:22:00* Test Item Value Reference Range Interpretation Comments Absolute Immature Granulocyte (auto (joseph t code = Absolute Immature Granulocyte (auto) 0.04 0-0.1 [facility] HospitalGLUBED2019-06-15 03:55:00* Test Item Value Reference Range Interpretation Comments GLUBED (test code = GLUBED) 370 mg/dL 74-106 H Performed by certified box printing machine operator at [facility] RLRISW2444-17-53 03:55:00* Test Item Value Reference Range Interpretation Comments GLUBED (test code = GLUBED) 358 mg/dL 74-106 H Performed by certified box printing machine operator at [facility] BASIC METABOLIC JVOPK0141-71-70 03:09:00* Test Item Value Reference Range Interpretation [...] CA) 8.1 mg/dL 8.5-10.1 L HEPATIC FUNCTION YWCHG3443-60-97 03:09:00* Test Item Value Reference Range Interpretation [...] reference range due to change in reagent. PSYDXLSQ-Z3336-43-15 03:09:00* Test Item Value Reference Range Interpretation Comments TROPONIN-I (test code = TROPI) <0.015 ng/mL 0-0.045 N BASIC METABOLIC LTTGJ9056-61-32 03:01:00* Test Item Value Reference Range Interpretation [...] code = CA) mg/dL 8.5-10.1 HEPATIC FUNCTION ZYSKC3796-92-09 03:01:00* Test Item Value Reference Range Interpretation [...] TOTAL (test code = ALKP) IUnit/L 45-117 ZMMRSXNF-L2756-58-15 03:01:00* Test Item Value Reference Range Interpretation Comments TROPONIN-I (test code = TROPI) ng/mL 0-0.045 CBC W/AUTO XYWH6412-34-72 02:56:00* Test Item Value Reference Range Interpretation [...] (test code = MDIFF) NO CBC W/AUTO GSFZ2920-05-95 02:51:00* Test Item Value Reference Range Interpretation [...] (test code = BA#) K/mm3 0.0-0.2 URINALYSIS XGCOIRCJ7661-76-94 01:33:00* Test Item Value Reference Range Interpretation [...] Urine Source? Clean Catch- XR CHEST 1 [id number] 01:00:00 FAX: Amish Nur, [place]: St: REG FAX: Vince Jones DO Name: KALYANI TALAVERA [facility] : 1955 Age/S: 63/F [address] [facility] Unit #: [id number] Loc: [place] [address] Phys: Vince Jones DO Acct: [id number] Dis Date: Status: REG ER PHONE #: [phone] Exam Date: 01/05/2019 0045 FAX #: [phone] Reason: Altered Mental Status EXAMS: CPT CODE: [id number] XR CHEST 1 V 97335 LOCATION: Q15 HISTORY: 63-year-old female who presents with alteration of awareness. COMMENT: A frontal chest radiograph was obtained at 12:44 a.m., and compared to study of [facility] 2018. Central vascular congestion pattern with surrounding [...] Signed Repor t - XR CHEST 1 [id number] 01:00:00 FAX: Amish Nur [phone] [place]: St: DEP FAX: Vince Jones DO Name: KALYANI TALAVERA [facility] : 1955 Age/S: 63/F [address] [facility] Unit #: [id number] Loc: [place] [address] Phys: Vince Jones DO Acct: [id number] Dis Date: Status: DEP ER PHONE #: [phone] Exam Date: 01/05/2019 0045 FAX #: [phone] Reason: Altered Mental Status EXAMS: CPT CODE: [id number] XR CHEST 1 V 87354 LOCATION: Q15 HISTORY: 63-year-old female who presents with alteration of awareness. COMMENT: A frontal chest radiograph was obtained at 12:44 a.m., and compared to study of [facility] 2018. Central vascular congestion pattern with surrounding [...] SCOOBY PARSONS RT(R) Trnscrd D ate/Time/By: 01/05/2019 (010) : By: [email or web address] Orig Print D/T: S: 12/22 (0103) PAGE 1 Signed Repor t - XR CHEST 1 [id number] 01:00:00 FAX: Amish Nur Si [phone] [place]: St: [facility] FAX: Vince Jones DO Name: KALYANI TALAVERA [facility] : 1955 Age/S: 63/F [address] [facility] Unit #: [id number] Loc: [place] [address] Phys: Vince Jones DO Acct: [id number] Dis Date: Status: [facility] ER PHONE #: [phone] Exam Date: 01/05/2019 0045 FAX #: [phone] Reason: Altered Mental Status EXAMS: CPT CODE: [id number] XR CHEST 1 V 29452 LOCATION: Q15 HISTORY: 63-year-old female who presents with alteration of awareness. COMMENT: A frontal chest radiograph was obtained at 12:44 a.m., and compared to study of [facility] 2018. Central vascular congestion pattern with surrounding [...] SCOOBY PARSONS RT(R) Trnscrd D ate/Time/By: 01/05/2019 (010) : By: [email or web address] Orig Print D/T: S: 12/22 (0103) PAGE 1 Signed Repor t - CT HEAD/BRAIN W/O [id number] 00:55:00 Name: KALYANI TALAVERA [facility] : 1955 Age/S: 63 / F [address] [facility] [id number] Loc: [place] [address] Phys: Vince Jones DO Acct: [id number] Dis Date: Status: REG ER PHONE #: Exam Date: 01/05/2019 0050 FAX #: [phone] Reason: Altered Mental Status EXAMS: CPT CODE: [id number] CT HEAD/BRAIN W/O CONT 07547 EXAM: - CT HEAD/BRAIN W/O CONT Location [...] 1 Signed Report (CONTINUED) Name: KALYANI TALAVERA [facility] : 1955 Age/S: 63 / F [address] [facility] Unit #: [id number] Loc: [place] [address] Phys: Vince Jones DO Acct: [id number] Dis Date: Status: REG ER PHONE #: [phone] Exam Date: 01/05/201949 FAX #: [phone] Reason: Altered Mental Status EXAMS: CPT CODE: [id number] CT HEAD/BRAIN W/O CONT 74181 <Continued> CC: Lucille Nur MD; Vince Jones DO Technologist:Faizan Adame RT(R)(CT) CTDI: DLP: Trnscb Date/Time: 01/05/2019 (54) [email or web address] Orig Print D/T: S: 01/05/2019 (005) PAGE 2 Signed Report - CT HEAD/BRAIN W/O [id number] 00:55:00 Name: KALYANI TALAVERA [facility] : 1955 Age/S: 63 / F [address] [facility] Unit #: [id number] [place]: [place] [address] Phys: Vince Jones DO Acct: [id number] Dis Date: Status: [facility] ER PHONE #: [phone] Exam Date: 01/05/201949 FAX #: [phone] Reason: Altered Mental Status EXAMS: CPT CODE: [id number] CT HEAD/BRAIN W/O CONT 84420 EXAM: - CT HEAD/BRAIN W/O CONT Location [...] 1 Signed Report (CONTINUED) Name: KALYANI TALAVERA [facility] : 1955 Age/S: 63 / F [address] [facility] Unit #: [id number] Loc: [place] [address] Phys: Vince Jones DO Acct: [id number] Dis Date: Status: [facility] ER PHONE #: [phone] Exam Date: 01/05/201949 FAX #: [phone] Reason: Altered Mental Status EXAMS: CPT CODE: [id number] CT HEAD/BRAIN W/O CONT 88072 <Continued> CC: Lucille Nur MD; Vince Jones DO Technologist:RT Susan(R)(CT) CTDI: DLP: Trnscb Date/Time: 01/05/2019 (54) [email or web address] Orig Print D/T: S: 01/05/2019 (005) PAGE 2 Signed Report - CT HEAD/BRAIN W/O [id number] 00:55:00 Name: KALYANI TALAVERA [facility] : 1955 Age/S: 63 / F [address] Unit #: [id number] Loc: [place] [address] Phys: Vince Jones DO Acct: [id number] Dis Date: Status: DEP ER PHONE #: [phone] Exam Date: 01/05/2019 0050 FAX #: [phone] Reason: Altered Mental Status EXAMS: CPT CODE: [id number] CT HEAD/BRAIN W/O CONT 46020 EXAM: - CT HEAD/BRAIN W/O CONT Location [...] 1 Signed Report (CONTINUED) Name: KALYANI TALAVERA [facility] : 1955 Age/S: 63 / F [address] Unit #: [id number] Loc: [place] [address] Phys: Vince Jones DO Acct: [id number] Dis Date: Status: DEP ER PHONE #: [phone] Exam Date: 01/05/201949 FAX #: [phone] Reason: Altered Mental Status EXAMS: CPT CODE: [id number] CT HEAD/BRAIN W/O CONT 66825 <Continued> CC: Lucille Nur MD; Vince Jones DO Technologist:Faizan Adame, (R)(CT) CTDI: DLP: Trnscb Date/Time: 01/05/2019 (54) [email or web address] Orig Print D/T: S: 01/05/2019 (57) PAGE 2 Signed Report GASTRIC,[id number] 16:33:00 RUN DATE: 11/16/18 [facility] PAGE 1 RUN TIME: 1633 Specimen Inqui ry RUN USER: INTERFACE PATIENT: KALYANI TALAVERA ACCT #: [id number] LOC: [facility] U #: [id number] AGE/SX: 63/F ROOM: RE11/15/18REG DR: Kb Bradford MD : 57 BED: DIS: STATUS: DEP [facility] TLOC: SPEC #: [id number] RECD: 11/15/18 STATUS: SHREYA BROWN #: [id number] MARILEE: 11/15/[address] [facility] [address]: Kb Bradford MD ENTERED: 11/15/18 SP TYPE: GASTRIC BX OTHR DR: Lucille Torres MDORDERED: GROSS COPIES TO: Lucille Nur MD [address] [place], [place] [address] Kb Bradford Si, MD [address] [address] PROCEDURES: GROSS ( 11/16/18) TISSUES: 1. ANTRUM - BX 2. BODY BIOPSY OF STOMA CH CLINICAL HISTORY COLLECTION DATE: 11/15/18 DYSPHAGIA FINAL DIAGNOSIS Gastric antrum, biopsy: SUGGESTIVE OF MILD REACTIVE GA STROPATHY CHANGE NO SIGNIFICANT ACUTE OR CHRONIC INFLAMMATION PRESENT NO AREAS OF MUCOSAL EROSION/ULCERATION NEGATIVE FOR INTESTINAL METAPL ODNNA NEGATIVE FOR HELICOBACTER ORGANISMS Gastric body, biopsy: GASTRIC MUCOSA WITH NO DISCRETE PATHOLOGIC ULCERATION RRB/sm D 2)75737, 90379 CONTINUED ON NEXT PAGE RUN DATE: 11/16/18 [facility] [place] PAGE 2 RUN TIME: 1633 Specimen Inquiry RUN USER: INTERFACE SPEC #: [id number] PATIENT: KHANH TALAVERA #[id number] (Continued) MACROSC OPIC The first specimen is [...] cm, submitted as (2). GROSS PERFORMED AT [facility] [address] [place] [address] [phone] MICROSCOPIC All of the stains, inc luding any controls performed, stain appropriately. MICROSCOPIC PERFORMED AT [facility] [address] [place] [address] ([phone] PERFORMING SITE Diagnosis perf ormed at: [facility] Pathology [facility] YANETH aceves [address] [place] [address] Signed SIGNATURE ON FILE Tristan Markham MD 11/16/18 1633 * * END OF REPORT [id number] 06:50:00* Test Item Value Reference Range Interpretation Comments GLUBED (test code = GLUBED) 292 mg/dL 74-106 H Performed by certified box printing machine operator at [facility] - XR RIBS UNI 2 V [id number] 14:33:00 FAX: Amish Nur Si [phone] [place]: O St: REG Name: KALYANI CATES [facility] : [birth year] Age/S: 63/F [address] [facility] Unit #: [id number] Loc: [place] [address] Phys: Chris Nur lvia Mickie VICENTE Acct: [id number] Dis Date: Status: REG CLI PHONE #: [phone] Exam Date: 11/09/2018 1220 FAX #: [phone] Reason: PAIN EXAMS: CPT CODE: [id number] XR RIBS UNI 2 [place] RT [address] HISTORY: Pain. NINA RISON: Chest x-ray from October 30, 2018. Right rib series. No acute fracture of the right ribs. Study slightly limited due to un derpenetrated technique. IMPRESSION: No right rib fracture. Study is limited due to suboptimal technique. Correlate [facility] bone scan for further evaluation as clinically indicated. at 1433 Reported and signed by: Solomon Chowdhury M.D. CC: Lucille Nur MD Technologist: Claire santos RT(R) Trnscrd Date/Time/By: 11/09/2018 (6418) : By: [email or web address] Orig Print D/T: S: 11/09/2018 (3225) PAGE 1 Signed Report [id number] 17:05:00* Test Item Value Reference Range Interpretation Comments GLUBED (test code = GLUBED) 274 mg/dL 74-106 H Performed by certified box printing machine operator at [facility] [id number] 11:39:00* Test Item Value Reference Range Interpretation Comments GLUBED (test code = GLUBED) 284 mg/dL 74-106 H Performed by certified box printing machine operator at [facility] [id number] 07:48:00* Test Item Value Reference Range Interpretation Comments GLUBED (test code = GLUBED) 285 mg/dL 74-106 H Performed by certified box printing machine operator at [facility] [id number] 20:08:00* Test Item Value Reference Range Interpretation Comments GLUBED (test code = GLUBED) 252 mg/dL 74-106 H Performed by certified box printing machine operator at [facility] [id number] 16:09:00* Test Item Value Reference Range Interpretation Comments GLUBED (test code = GLUBED) 329 mg/dL 74-106 H Performed by certified box printing machine operator at [facility] BASIC METABOLIC [id number] 12:51:00* Test Item Value Reference Range Interpretation [...] CA) 8.6 mg/dL 8.5-10.1 N BASIC METABOLIC [id number] 12:40:00* Test Item Value Reference Range Interpretation [...] CALCIUM (test code = CA) mg/dL 8.5-10.1 [id number] 10:39:00* Test Item Value Reference Range Interpretation Comments GLUBED (test code = GLUBED) 281 mg/dL 74-106 H Performed by certified box printing machine operator at [facility] [id number] 07:54:00* Test Item Value Reference Range Interpretation Comments GLUBED (test code = GLUBED) 299 mg/dL 74-106 H Performed by certified box printing machine operator at [facility] [id number] 21:58:00* Test Item Value Reference Range Interpretation Comments TROPONIN-I (test code = TROPI) <0.015 ng/mL 0-0.045 N SPECIMEN COMMENTS: [id number] 20:26:00* Test Item Value Reference Range Interpretation Comments GLUBED (test code = GLUBED) 340 mg/dL 74-106 H Performed by certified box printing machine operator at [facility] [id number] 17:09:00* Test Item Value Reference Range Interpretation Comments GLUBED (test code = GLUBED) 370 mg/dL 74-106 H Performed by certified box printing machine operator at [facility] [id number] 10:49:00* Test Item Value Reference Range Interpretation Comments GLUBED (test code = GLUBED) 351 mg/dL 74-106 H Performed by certified box printing machine operator at [facility] [id number] 09:54:00* Test Item Value Reference Range Interpretation Comments GLUBED (test code = GLUBED) 304 mg/dL 74-106 H Performed by certified box printing machine operator at [facility] [id number] 09:20:00* Test Item Value Reference Range Interpretation Comments TROPONIN-I (test code = TROPI) <0.015 ng/mL 0-0.045 N COMMENTS TO STAPLING MACHINE OPERATOR: COLLECT 3 HOURS AFTER PREVIOUS [id number] 03:55:00* Test Item Value Reference Range Interpretation Comments TROPONIN-I (test code = TROPI) <0.015 ng/mL 0-0.045 N COMMENTS TO STAPLING MACHINE OPERATOR: COLLECT 3 HOURS AFTER PREVIOUS SAMPLECBC W/AUTO [id number] 01:32:00* Test Item Value Reference Range Interpretation [...] = MDIFF) NO, ONLY SCAN NEEDED DIFFERENTIAL [id number] 01:32:00* Test Item Value Reference Range Interpretation Comments STAIN ACCEPTABILITY (test code = STN ACCEPTABLE) STAIN ACCEPTABLE POLYCHROMASIA (test code = POLC) 1+ HYPOCHROMIA (test code = HYPO) 1+ ANISOCYTOSIS (test code = ANISO) 1+ MICROCYTOSIS (test code = MICR) 1+ PLATELET ESTIMATE (test code = PLTEST) ADEQUATE PLATELET MORPHOLOGY (test code = PLTMORPH) NORMAL URINALYSIS [id number] 01:10:00* Test Item Value Reference Range Interpretation [...] SEEN #/HPF NONE Urine Source? Clean CatchURINALYSIS [id number] 01:06:00* Test Item Value Reference Range Interpretation [...] per HPF NONE Urine Source? Clean CatchURINALYSIS [id number] 01:03:00* Test Item Value Reference Range Interpretation [...] BACU) per HPF NONE Urine Source? Clean [id number] 00:46:00* Test Item Value Reference Range Interpretation Comments GLUBED (test code = GLUBED) 415 mg/dL 74-106 H Performed by certified box printing machine operator at [facility] VENOUS BLOOD [id number] 23:47:00* Test Item Value Reference Range Interpretation [...] METHGB) 0.4 % 0.0-1.50 N COMPREHENSIVE METABOLIC [id number] 23:25:00* Test Item Value Reference Range Interpretation Comments SODIUM (test code = NA) 134 mmol/L 136-145 L POTASSIUM (test code = K) 4.2 mmol/L 3.5-5.1 N CHLORIDE (test code = CL) 99.0 mmol/L 98-107 N CARBON DIOXIDE (test code = CO2) 26.0 mmol/L 21-32 N ANION GAP (test code = GAP) 13.2 10-20 N GLUCOSE (test code = GLU) 537 mg/dL 74-106 Re sults called to MDN0025 by ELVIA1 10/30/18 2325Critical results verified and read back [...] reference range due to change in reagent. [id number] 23:25:00* Test Item Value Reference Range Interpretation Comments LIPASE (test code = LIP) 113 U/L 73.0-393.0 N [id number] 23:25:00* Test Item Value Reference Range Interpretation Comments CKMB (test code = CKMBT) < 1.0 ng/mL 0-6.0 N [id number] 23:25:00* Test Item Value Reference Range Interpretation Comments TROPONIN-I (test code = TROPI) <0.015 ng/mL 0-0.045 N CBC W/AUTO [id number] 23:21:00* Test Item Value Reference Range Interpretation [...] = MDIFF) NO, ONLY SCAN NEEDED DIFFERENTIAL [id number] 23:21:00* Test Item Value Reference Range Interpretation Comments STAIN ACCEPTABILITY (test code = STN ACCEPTABLE) CABOT RINGS (test code = CAB) MORPHOLOGY COMMENT (test code = MOC) PLATELET ESTIMATE (test code = PLTEST) PLATELET MORPHOLOGY (test code = PLTMORPH) CBC W/AUTO [id number] 23:21:00* Test Item Value Reference Range Interpretation [...] = MDIFF) NO, ONLY SCAN NEEDED DIFFERENTIAL [id number] 23:21:00* Test Item Value Reference Range Interpretation Comments STAIN ACCEPTABILITY (test code = STN ACCEPTABLE) CABOT RINGS (test code = CAB) MORPHOLOGY COMMENT (test code = MOC) PLATELET ESTIMATE (test code = PLTEST) PLATELET MORPHOLOGY (test code = PLTMORPH) CBC W/AUTO [id number] 23:21:00* Test Item Value Reference Range Interpretation [...] = MDIFF) NO, ONLY SCAN NEEDED DIFFERENTIAL [id number] 23:21:00* Test Item Value Reference Range Interpretation Comments STAIN ACCEPTABILITY (test code = STN ACCEPTABLE) MORPHOLOGY COMMENT (test code = MOC) PLATELET ESTIMATE (test code = PLTEST) PLATELET MORPHOLOGY (test code = PLTMORPH) CBC W/AUTO [id number] 23:20:00* Test Item Value Reference Range Interpretation [...] = MDIFF) NO, ONLY SCAN NEEDED DIFFERENTIAL [id number] 23:20:00* Test Item Value Reference Range Interpretation Comments STAIN ACCEPTABILITY (test code = STN ACCEPTABLE) CABOT RINGS (test code = CAB) MORPHOLOGY COMMENT (test code = MOC) PLATELET ESTIMATE (test code = PLTEST) PLATELET MORPHOLOGY (test code = PLTMORPH) CBC W/AUTO [id number] 23:08:00* Test Item Value Reference Range Interpretation [...] code = BA#) K/mm3 0.0-0.2 COMPREHENSIVE METABOLIC [id number] 23:06:00* Test Item Value Reference Range Interpretation [...] TOTAL (test code = ALKP) IUnit/L 45-117 [id number] 23:06:00* Test Item Value Reference Range Interpretation Comments LIPASE (test code = LIP) U/L 73.0-393.0 [id number] 23:06:00* Test Item Value Reference Range Interpretation Comments CKMB (test code = CKMBT) ng/mL 0-6.0 [id number] 23:06:00* Test Item Value Reference Range Interpretation Comments TROPONIN-I (test code = TROPI) ng/mL 0-0.045 - XR CHEST 2 [id number] 23:03:00 FAX: Amish Nur, [place]: St: [facility] FAX: Leonora Norton [phone] Name: KALYANI TALAVERA [facility] : 1955 Age/S: 63/F [address] Unit #: [id number] Loc: [place] [address] Phys: Leonora Goins MD Acct: [id number] Dis Date: Status: REG ER PHONE #: [phone] Exam Date: 10/30/2018 224 FAX #: [phone] Reason: cp EXAMS: CPT CODE: [id number] XR CHEST 2 V 67314 REASON FOR EXAM: cp Exam Order Date: 10/30/2018 10:08 PM Ordering Gregory: Leonora Goins MD PROCEDURE: - XR CHEST [...] MD Technologist: Janeen Dunbar Trnscrd Date/Time/By: 10/30/2018 (1933) : By: Jaylan.VTL Orig Print D/T: S: 10/30/2018 (5806) PAGE 1 Signed Report GLUBED 2018-10-12 11:21:00* Test Item Value Reference Range Interpretation Comments GLUBED (test code = GLUBED) 189 mg/dL 74-106 H Performed by certified box printing machine operator at [facility] [id number] 10:37:00* Test Item Value Reference Range Interpretation Comments GLUBED (test code = GLUBED) 190 mg/dL 74-106 H Performed by certified box printing machine operator at [facility] [id number] 21:08:00* Test Item Value Reference Range Interpretation Comments GLUBED (test code = GLUBED) 156 mg/dL 74-106 H Performed by certified box printing machine operator at [facility] [id number] 16:01:00* Test Item Value Reference Range Interpretation Comments GLUBED (test code = GLUBED) 122 mg/dL 74-106 H Performed by certified box printing machine operator at [facility] [id number] 12:56:00* Test Item Value Reference Range Interpretation Comments GLUBED (test code = GLUBED) 173 mg/dL 74-106 H Performed by certified box printing machine operator at [facility] [id number] 07:28:00* Test Item Value Reference Range Interpretation Comments GLUBED (test code = GLUBED) 221 mg/dL 74-106 H Performed by certified box printing machine operator at [facility] [id number] 20:54:00* Test Item Value Reference Range Interpretation Comments GLUBED (test code = GLUBED) 261 mg/dL 74-106 H Performed by certified box printing machine operator at [facility] [id number] 15:03:00* Test Item Value Reference Range Interpretation Comments GLUBED (test code = GLUBED) 167 mg/dL 74-106 H Performed by certified box printing machine operator at [facility] [id number] 11:23:00* Test Item Value Reference Range Interpretation Comments GLUBED (test code = GLUBED) 206 mg/dL 74-106 H Performed by certified box printing machine operator at [facility] BASIC METABOLIC [id number] 07:57:00* Test Item Value Reference Range Interpretation [...] code = CA) 8.5 mg/dL 8.5-10.1 N [id number] 07:29:00* Test Item Value Reference Range Interpretation Comments GLUBED (test code = GLUBED) 239 mg/dL 74-106 H Performed by certified box printing machine operator at [facility] [id number] 05:00:00* Test Item Value Reference Range Interpretation Comments GLUBED (test code = GLUBED) 234 mg/dL 74-106 H Performed by certified box printing machine operator at [facility] [id number] 20:10:00* Test Item Value Reference Range Interpretation Comments GLUBED (test code = GLUBED) 204 mg/dL 74-106 H Performed by certified box printing machine operator at [facility] [id number] 17:08:00* Test Item Value Reference Range Interpretation Comments GLUBED (test code = GLUBED) 243 mg/dL 74-106 H Performed by certified box printing machine operator at [facility] T4 [id number] 14:42:00* Test Item Value Reference Range Interpretation Comments T4 FREE (test code = T4F) 7.60 ng/dL 0.76-1.46 H THYROID STIMULATING [id number] 14:42:00* Test Item Value Reference Range Interpretation Comments THYROID STIMULATING HORMONE (test code = TSH) 0.812 uIU/mL 0.36-3.7 4 N TSH REFERENCE RANGES: EUTHYROID: 0.35 - 4.3 mIU/mL HYPO : > 5.5 mIU/mL HYPER : < 0.35 mIU/mL T4 [id number] 14:03:00* Test Item Value Reference Range Interpretation Comments T4 FREE (test code = T4F) ng/dL 0.76-1.46 THYROID STIMULATING [id number] 14:03:00* Test Item Value Reference Range Interpretation Comments THYROID STIMULATING HORMONE (test code = TSH) 0.812 uIU/mL 0.36-3.7 4 N TSH REFERENCE RANGES: EUTHYROID: 0.35 - 4.3 mIU/mL HYPO : > 5.5 mIU/mL HYPER : < 0.35 mIU/mL [id number] 12:01:00* Test Item Value Reference Range Interpretation Comments GLUBED (test code = GLUBED) 232 mg/dL 74-106 H Performed by certified box printing machine operator at [facility] [id number] 07:31:00* Test Item Value Reference Range Interpretation Comments GLUBED (test code = GLUBED) 253 mg/dL 74-106 H Performed by certified box printing machine operator at [facility] BASIC METABOLIC [id number] 05:59:00* Test Item Value Reference Range Interpretation [...] CA) 8.4 mg/dL 8.5-10.1 L BASIC METABOLIC [id number] 05:56:00* Test Item Value Reference Range Interpretation [...] CALCIUM (test code = CA) mg/dL 8.5-10.1 [id number] 03:37:00* Test Item Value Reference Range Interpretation Comments GLUBED (test code = GLUBED) 302 mg/dL 74-106 H Performed by certified box printing machine operator at [facility] T4 [id number] 20:00:00* Test Item Value Reference Range Interpretation Comments T4 FREE (test code = T4F) 0.97 ng/dL 0.76-1.46 N THYROID STIMULATING [id number] 20:00:00* Test Item Value Reference Range Interpretation Comments THYROID STIMULATING HORMONE (test code = TSH) 0.336 uIU/mL 0.36-3.7 4 L TSH REFERENCE RANGES: EUTHYROID: 0.35 - 4.3 mIU/mL HYPO : > 5.5 mIU/mL HYPER : < 0.35 mIU/mL [id number] 19:59:00* Test Item Value Reference Range Interpretation Comments GLYCOSYLATED HEMOGLOBIN (HA1C) (test code = GLYHGB) 9.7 % HbA1 4. 8-6.0 H ESTIMATED AVERAGE GLUCOSE (test code = EAG) 232 MG/DL [id number] 19:43:00* Test Item Value Reference Range Interpretation Comments GLUBED (test code = GLUBED) 301 mg/dL 74-106 H Performed by certified box printing machine operator at [facility] [id number] 17:38:00* Test Item Value Reference Range Interpretation Comments GLUBED (test code = GLUBED) 242 mg/dL 74-106 H Performed by certified box printing machine operator at [facility] [id number] 13:43:00* Test Item Value Reference Range Interpretation Comments TROPONIN-I (test code = TROPI) <0.015 ng/mL 0-0.045 N COMMENTS TO STAPLING MACHINE OPERATOR: COLLECT 3 HOURS AFTER PREVIOUS [id number] 13:19:00* Test Item Value Reference Range Interpretation Comments GLUBED (test code = GLUBED) 243 mg/dL 74-106 H Performed by certified box printing machine operator at [facility] [id number] 10:44:00* Test Item Value Reference Range Interpretation Comments TROPONIN-I (test code = TROPI) <0.015 ng/mL 0-0.045 N COMMENTS TO STAPLING MACHINE OPERATOR: COLLECT 3 HOURS AFTER PREVIOUS [id number] 08:17:00* Test Item Value Reference Range Interpretation Comments GLUBED (test code = GLUBED) 164 mg/dL 74-106 H Performed by certified box printing machine operator at [facility] BASIC METABOLIC [id number] 08:09:00* Test Item Value Reference Range Interpretation [...] mg/dL 74-106 LL Re sults called to IGN0036 by V.LAB.LDB 10/08/18 0807Critical results verified and read back [...] CA) 8.5 mg/dL 8.5-10.1 N HEPATIC FUNCTION [id number] 08:09:00* Test Item Value Reference Range Interpretation [...] reference range due to change in reagent. [id number] 08:09:00* Test Item Value Reference Range Interpretation Comments LIPASE (test code = LIP) 70 U/L 73.0-393.0 L [id number] 08:09:00* Test Item Value Reference Range Interpretation [...] into account the patients history. B-TYPE NATRIURETIC [id number] 06:52:00* Test Item Value Reference Range Interpretation Comments B-TYPE NATRIURETIC PEPTIDE (test code = BNP) 10.07 pgram/mL 0-100 N [id number] 06:43:00* Test Item Value Reference Range Interpretation Comments GLUBED (test code = GLUBED) 36 mg/dL 74-106 LL Performed by certified box printing machine operator at [facility] URINALYSIS [id number] 06:19:00* Test Item Value Reference Range Interpretation [...] FEW #/LPF FEW Urine Source? Clean CatchLACTIC [id number] 06:15:00* Test Item Value Reference Range Interpretation Comments LACTIC ACID (test code = LACT) 0.9 mmol/L 0.4-1.9 N - XR CHEST 1 [id number] 05:44:00 FAX: Amish Nur, [place]: B St: REG Name: KALYANI CATES [facility] : [birth year] Age/S: 63/F [address] Unit #: [id number] Loc: [place] [address] Phys: Elena Cedeño MD Acct: [id number] Dis Date: Status: REG ER PHONE #: [phone] Exam Date: 10/08/2018 0531 FAX #: [phone] Reason: CHEST PAIN EXAMS: CPT CODE: [id number] XR CHEST 1 V 26794 HISTORY: Chest pain. Location: C3 COMPARISON:09/18/2017 FINDINGS: There is mild cardiomegaly. There is elevation of the right hemid iaphragm. No pneumothorax. No focal consolidation. No other changes. IMPRESSION: 1. Elevated right hemidiaphragm. Mi ld cardiomegaly. No other acute abnormality. at 0599 Report ed and signed by: Kizzy Dietrich MD CC: Lucille Nur MD Technologist: Marcelino CLEMENTS(Megan) Trnscrd Date/Time/By: 10/08/2018 (0544) : By: Festus XC2 Orig Print D/T: S: 10/08/2018 (0583) PAGE 1 Signed Report PROTHROMBIN [id number] 05:38:00* Test Item Value Reference Range Interpretation [...] (2.5-3.5) IS PATIENT ON ANTICOAGULANTS? NTHROMBOPLASTIN TIME [id number] 05:38:00* Test Item Value Reference Range Interpretation Comments THROMBOPLASTIN TIME PARTIAL (test code = PTT) 32.9 seconds 25.0-36. 5 N IS PATIENT ON ANTICOAGULANTS? [id number] 05:38:00* Test Item Value Reference Range Interpretation [...] -Liver cirrhosis - IS PATIENT ON ANTICOAGULANTS? NCBC W/O [id number] 05:27:00* Test Item Value Reference Range Interpretation [...] MPV) 10.6 fL 6.7-11.0 N ARTERIAL BLOOD [id number] 05:25:00* Test Item Value Reference Range Interpretation [...] 16.4 % vol 18.0-22.0 L CBC W/O [id number] 05:20:00* Test Item Value Reference Range Interpretation [...] VOLUME (test code = MPV) fL 6.7-11.0 [id number] 05:06:00* Test Item Value Reference Range Interpretation Comments GLUBED (test code = GLUBED) 73 mg/dL 74-106 L Performed by certified box printing machine operator at [facility] FOREARM RIGHT 2 [id number] 20:47:00 [facility] [address] [address] Patient Name: KALYANI TALAVERA MR #: [id number] : 1955 Age/Sex: 63/F Req #: [id number] Adm Physician: Ordered by: FLO TOLBERT MD Report #: [id number] Location: ER Room/Bed: Procedure: [id number] DX /FOREARM RIGHT 2 VIEW Exam Date: [...] 049 COPY TO: FLO TOLBERT MD Bedside [id number] 14:02:00 * Test Item Value Reference Range Interpretation Comments Bedside Glucose (test code = 03399-9) 68 70-120 L Meter ID: [id number] [facility] 2018-[facility] 14:02:00* Test Item Value Reference Range Interpretation Comments Bedside Glucose (test code = 32290-1) 68 70-120 L Meter ID: [id number] [facility] 2018-07-11 14:02:00* Test Item Value Reference Range Interpretation Comments Bedside Glucose (test code = 40105-3) 68 70-120 L Meter ID: [id number] [facility] [id number] 12:44:00* Test Item Value Reference Range Interpretation Comments B-Type Natriuretic Peptide (test code = 03887-5) 43.1 0-100 [facility] [id number] 12:44:00* Test Item Value Reference Range Interpretation Comments B-Type Natriuretic Peptide (test code = 85091-8) 43.1 0-100 [facility] MAX[facility] FAC/PARANAS [id number] 12:32:[address] [address] Patient Name: KALYANI TALAVERA MR #: [id number] : 1955 Age/Sex: 63/F Req #: [id number] Adm Physician: Ordered by: ELIESER DAWSON MD Report #: [id number] Location: ER Room/Bed: Procedure: [id number] CT/CT MAXIO FAC/PARANAS WO Exam Date: 07/11/18 [...] COPY TO: ELIESER DAWSON MD CT BRAIN [id number] 12:26:00 [place] [address] Patient Name: KALYANI TALAVERA MR #: [id number] : 1955 Age/Sex: 63/F Req #: [id number] Adm Physician: Ordered by: ELIESER DAWSON MD Report #: [id number] Location: ER Room/Bed: Procedure: [id number] CT/CT BRAIN WO Exam Date: 07/11/18 Exam [...] COPY TO: ELIESER DAWSON MD Lactic Acid [id number] 12:24:00* Test Item Value Reference Range Interpretation Comments Lactic Acid Level (test code = Lactic Acid Level) 7.1 4.5- 19.8 [facility] [id number] 12:24:00* Test Item Value Reference Range Interpretation Comments Lactic Acid Level (test code = Lactic Acid Level) 7.1 4.5- 19.8 [facility] HospitalL[facility] Acid [id number] 12:24:00* Test Item Value Reference Range Interpretation Comments Lactic Acid Level (test code = Lactic Acid Level) 7.1 4.5- 19.8 [facility] [id number] 12:24:00* Test Item Value Reference Range Interpretation Comments Lactic Acid Level (test code = Lactic Acid Level) 7.1 4.5- 19.8 [facility] HospitalL[facility] Acid [id number] 12:24:00* Test Item Value Reference Range Interpretation Comments Lactic Acid Level (test code = Lactic Acid Level) 7.1 4.5- 19.8 [facility] Hospital[facility] Acid [id number] 12:24:00* Test Item Value Reference Range Interpretation Comments Lactic Acid Level (test code = Lactic Acid Level) 7.1 4.5- 19.8 [facility] HospitalL[facility] Acid [id number] 12:24:00* Test Item Value Reference Range Interpretation Comments Lactic Acid Level (test code = Lactic Acid Level) 7.1 4.5- 19.8 [facility] [id number] 12:24:00* Test Item Value Reference Range Interpretation Comments Lactic Acid Level (test code = Lactic Acid Level) 7.1 4.5- 19.8 [facility] Acid [id number] 12:24:00* Test Item Value Reference Range Interpretation Comments Lactic Acid Level (test code = Lactic Acid Level) 7.1 4.5- 19.8 [facility] Oqmus8641-29-30 12:24:00* Test Item Value Reference Range Interpretation Comments Lactic Acid Level (test code = Lactic Acid Level) 7.1 4.5- 19.8 [facility] HospitalCreatine Kinase [id number] 12:17:00* Test Item Value Reference Range Interpretation Comments Creatine Kinase MB (test code = 36130-1) 2.60 0-5.0 [place] [id number] 12:17:00* Test Item Value Reference Range Interpretation Comments Troponin I (test code = OBC5809) < 0.001 0-0.300 [facility] Hospital[facility] Kinase [id number] 12:17:00* Test Item Value Reference Range Interpretation Comments Creatine Kinase MB (test code = 86903-5) 2.60 0-5.0 [place] [id number] 12:17:00* Test Item Value Reference Range Interpretation Comments Troponin I (test code = GSQ8147) < 0.001 0-0.300 [facility] HospitalActivated Partial Thromboplast Time 2018-07-11 12:09:00* Test Item Value Reference Range Interpretation Comments Activated Partial Thromboplast Time (test code = 16958-4) 20.8 23.8-35.5 L [facility] Hfbrs2435-90-21 12:09:00* Test Item Value Reference Range Interpretation Comments Sodium Level (test code = 2951-2) 141 136-145 [facility] HospitalPotassium Knabm9185-75-67 12:09:00* Test Item Value Reference Range Interpretation Comments Potassium Level (test code = 2823-3) 4.5 3.5-5.1 [facility] HospitalChloride Mbxiy4984-53-10 12:09:00* Test Item Value Reference Range Interpretation Comments Chloride Level (test code = 2075-0) 110 98-107 H [facility] HospitalCarbon Dioxide Fkbip8027-63-28 12:09:00* Test Item Value Reference Range Interpretation Comments Carbon Dioxide Level (test code = 2028-9) 22 22-29 [facility] HospitalAnion Qig0320-62-98 12:09:00* Test Item Value Reference Range Interpretation Comments Anion Gap (test code = 41756-6) 13.5 8-16 [facility] HospitalBlood Urea Lhfeugdp1023-31-10 12:09:00* Test Item Value Reference Range Interpretation Comments Blood Urea Nitrogen (test code = 3094-0) 28 7-26 H [facility] [facility] HospitalCreatinine2018-[facility] 12:09:00* Test Item Value Reference Range Interpretation Comments Creatinine (test code = 2160-0) 0.92 0.57-1.11 [facility] HospitalBUN/Creatinine Flbqd4713-03-26 12:09:00* Test Item Value Reference Range Interpretation Comments BUN/Creatinine Ratio (test code = 3097-3) 30 6-25 H [facility] HospitalEstimat Glomerular Filtration Rate 2018-07-11 12:09:00* Test Item Value Reference Range Interpretation Comments Estimat Glomerular Filtration Rate (test code = 948745196) > 60 >60 Ranges were taken from the National Kidney Disease Education Program and the [facility] literature.Reference ranges:60 or greater: Zickry98-27 ( for 3 consecutive months): Chronic kidney disease 15 or less: Kidney failureHarris Health System Ben Ta[facility] HospitalGlucose Nzrrj8273-22-41 12:09:00* Test Item Value Reference Range Interpretation Comments Glucose Level (test code = HDC6625) 62 74-118 L [facility] HospitalCalcium Hbivy5142-09-80 12:09:00* Test Item Value Reference Range Interpretation Comments Calcium Level (test code = 94047-9) 9.2 8.4-10.2 [facility] HospitalTog[facility] Davcfsjkl6144-65-09 12:09:00* Test Item Value Reference Range Interpretation Comments Total Bilirubin (test code = 1975-2) 0.3 0.2-1.2 [facility] HospitalAspartate Amino Transf (AST/SGOT) 2018-07-11 12:09:00* Test Item Value Reference Range Interpretation Comments Aspartate Amino Transf (AST/SGOT) (test code = Aspartate Amino Transf (AST/SGOT)) 17 5-34 [facility] HospitalAlanine Aminotransferase (ALT/SGPT) 2018-07-11 12:09:00* Test Item Value Reference Range Interpretation Comments Alanine Aminotransferase (ALT/SGPT) (test code = 1742-6) 18 0-55 [facility] HospitalTotal Dbphdhb8366-19-80 12:09:00* Test Item Value Reference Range Interpretation Comments Total Protein (test code = 2885-2) 6.9 6.5-8.1 [facility] HospitalAlbumin2018-12-19 12:09:00* Test Item Value Reference Range Interpretation Comments Albumin (test code = 1751-7) 3.6 3.5-5.0 [facility] HospitalGlobulin2018-12-19 12:09:00* Test Item Value Reference Range Interpretation Comments Globulin (test code = 38440-0) 3.3 2.3-3.5 [facility] HospitalAlbumin/Globulin Cotdk6564-81-42 12:09:00 * Test Item Value Reference Range Interpretation Comments Albumin/Globulin Ratio (test code = 1759-0) 1.1 0.8-2.0 [facility] HospitalAlkaline Gkxtkaxeiqm2175-77-66 12:09:00* Test Item Value Reference Range Interpretation Comments Alkaline Phosphatase (test code = 6768-6) 55 40-150 [facility] HospitalCreatine Jbthuj7034-50-33 12:09:00* Test Item Value Reference Range Interpretation Comments Creatine Kinase (test code = 2157-6) 71 29-168 [facility] HospitalActivated Partial Thromboplast Time 2018-07-11 12:09:00* Test Item Value Reference Range Interpretation Comments Activated Partial Thromboplast Time (test code = 71582-5) 20.8 23.8-35.5 L [facility]odium Lbwzh8764-91-58 12:09:00* Test Item Value Reference Range Interpretation Comments Sodium Level (test code = 2951-2) 141 136-145 [facility] HospitalPotassium Lucsf6114-52-07 12:09:00* Test Item Value Reference Range Interpretation Comments Potassium Level (test code = 2823-3) 4.5 3.5-5.1 [facility] HospitalChloride Fsahf8601-93-89 12:09:00* Test Item Value Reference Range Interpretation Comments Chloride Level (test code = 2075-0) 110 98-107 H [facility] HospitalCarbon Dioxide Sbekt9949-54-75 12:09:00* Test Item Value Reference Range Interpretation Comments Carbon Dioxide Level (test code = 2028-9) 22 22-29 [facility] HospitalAnion Qrr8768-56-43 12:09:00* Test Item Value Reference Range Interpretation Comments Anion Gap (test code = 98061-9) 13.5 8-16 [facility] HospitalBlood Urea Rppcfpmo5129-83-14 12:09:00* Test Item Value Reference Range Interpretation Comments Blood Urea Nitrogen (test code = 3094-0) 28 7-26 H [facility] HospitalCreatinine2018-12-19 12:09:00* Test Item Value Reference Range Interpretation Comments Creatinine (test code = 2160-0) 0.92 0.57-1.11 [facility] HospitalBUN/Creatinine Rcxfh1785-74-79 12:09:00* Test Item Value Reference Range Interpretation Comments BUN/Creatinine Ratio (test code = 3097-3) 30 6-25 H [facility] HospitalEstimat Glomerular Filtration Rate 2018-07-11 12:09:00* Test Item Value Reference Range Interpretation Comments Estimat Glomerular Filtration Rate (test code = 498617475) > 60 >60 Ranges were taken from the National Kidney Disease Education Program and the [facility] literature.Reference ranges:60 or greater: Bruupn01-16 ( for 3 consecutive months): Chronic kidney disease 15 or less: Kidney failureHarris Health System Ben [facility] HospitalGlucose Tbnrs2959-71-97 12:09:00* Test Item Value Reference Range Interpretation Comments Glucose Level (test code = OUG4848) 62 74-118 L [facility] HospitalCalcium Nzxwx7009-61-98 12:09:00* Test Item Value Reference Range Interpretation Comments Calcium Level (test code = 85512-0) 9.2 8.4-10.2 [facility] HospitalTotal Oywufclqu3438-54-75 12:09:00* Test Item Value Reference Range Interpretation Comments Total Bilirubin (test code = 1975-2) 0.3 0.2-1.2 [facility] HospitalAspartate Amino Transf (AST/SGOT) 2018-07-11 12:09:00* Test Item Value Reference Range Interpretation Comments Aspartate Amino Transf (AST/SGOT) (test code = Aspartate Amino Transf (AST/SGOT)) 17 5-34 [facility] HospitalAlanine Aminotransferase (ALT/SGPT) 2018-07-11 12:09:00* Test Item Value Reference Range Interpretation Comments Alanine Aminotransferase (ALT/SGPT) (test code = 1742-6) 18 0-55 [facility] HospitalTotal Sufnucp5007-33-78 12:09:00* Test Item Value Reference Range Interpretation Comments Total Protein (test code = 2885-2) 6.9 6.5-8.1 [facility] HospitalAlbumin2018-12-19 12:09:00* Test Item Value Reference Range Interpretation Comments Albumin (test code = 1751-7) 3.6 3.5-5.0 [facility] HospitalGlobulin2018-12-19 12:09:00* Test Item Value Reference Range Interpretation Comments Globulin (test code = 51921-9) 3.3 2.3-3.5 [facility] HospitalAlbumin/Globulin Aoepp9102-34-24 12:09:00 * Test Item Value Reference Range Interpretation Comments Albumin/Globulin Ratio (test code = 1759-0) 1.1 0.8-2.0 [facility] HospitalAlkaline Svfprkolvbm2134-31-62 12:09:00* Test Item Value Reference Range Interpretation Comments Alkaline Phosphatase (test code = 6768-6) 55 40-150 [facility] HospitalCreatine Vqxqnu3016-11-77 12:09:00* Test Item Value Reference Range Interpretation Comments Creatine Kinase (test code = 2157-6) 71 29-168 [facility] HospitalActivated Partial Thromboplast Time 2018-07-11 12:09:00* Test Item Value Reference Range Interpretation Comments Activated Partial Thromboplast Time (test code = 87680-5) 20.8 23.8-35.5 L [facility] HospitalProthrombin Tjev2066-72-85 11:59:00* Test Item Value Reference Range Interpretation Comments Prothrombin Time (test code = 5902-2) 13.5 11.9-14.5 [facility] HospitalProthromb Time International Ratio 2018-07-11 11:59:00* Test Item Value Reference Range Interpretation Comments Prothromb Time International Ratio (test code = 6301-6) 0.95 Oral Anticoagulant Therapy INR Values:1. Low Intensity Therapy 1.5 - 2.02 . Moderate Intensity Therapy 2.0 - 3.03. High Intensity Therapy(1) 2.5 - 3. 54. High Intensity Therapy(2) 3.0 - 4.05. Panic Value INR > 5.0 [facility] HospitalProthrombin Ltqe9959-33-36 11:59:00* Test Item Value Reference Range Interpretation Comments Prothrombin Time (test code = 5902-2) 13.5 11.9-14.5 [facility] HospitalProthromb Time International Ratio 2018-07-11 11:59:00* Test Item Value Reference Range Interpretation Comments Prothromb Time International Ratio (test code = 6301-6) 0.95 Oral Anticoagulant Therapy INR Values:1. Low Intensity Therapy 1.5 - 2.02 . Moderate Intensity Therapy 2.0 - 3.03. High Intensity Therapy(1) 2.5 - 3. 54. High Intensity Therapy(2) 3.0 - 4.05. Panic Value INR > 5.0 [facility] HospitalProtencompass health Suqx6479-02-71 11:59:00* Test Item Value Reference Range Interpretation Comments Prothrombin Time (test code = 5902-2) 13.5 11.9-14.5 [facility] HospitalProthromb Time International Ratio 2018-07-11 11:59:00* Test Item Value Reference Range Interpretation Comments Prothromb Time International Ratio (test code = 6301-6) 0.95 Oral Anticoagulant Therapy INR Values:1. Low Intensity Therapy 1.5 - 2.02 . Moderate Intensity Therapy 2.0 - 3.03. High Intensity Therapy(1) 2.5 - 3. 54. High Intensity Therapy(2) 3.0 - 4.05. Panic Value INR > 5.0 [facility] HospitalWhite Blood Jkupp8134-94-60 11:54:00* Test Item Value Reference Range Interpretation Comments White Blood Count (test code = 6690-2) 6.79 4.8-10.8 [facility] HospitalRed Blood Sogyh8237-00-12 11:54:00* Test Item Value Reference Range Interpretation Comments Red Blood Count (test code = 789-8) 4.38 3.6-5.1 [facility] HospitalHemoglobin2018-12-19 11:54:00* Test Item Value Reference Range Interpretation Comments Hemoglobin (test code = 68041-9) 11.4 12.0-16.0 L [facility] HospitalHematocrit2018-12-19 11:54:00* Test Item Value Reference Range Interpretation Comments Hematocrit (test code = 4544-3) 38.1 34.2-44.1 [facility] HospitalMean Corpuscular Pfqpwn6986-35-06 11:54:00* Test Item Value Reference Range Interpretation Comments Mean Corpuscular Volume (test code = 787-2) 87.0 81-99 [facility] HospitalMean Corpuscular Hszixekhzc3336-68-34 11:54:00* Test Item Value Reference Range Interpretation Comments Mean Corpuscular Hemoglobin (test code = 785-6) 26.0 28-32 L [facility] HospitalMean Corpuscular Hemoglobin Concent 2018-07-11 11:54:00* Test Item Value Reference Range Interpretation Comments Mean Corpuscular Hemoglobin Concent (test code = 786-4) 29.9 31-35 L [facility] HospitalRed Cell Distribution Ywrdd6372-81-98 11:54:00* Test Item Value Reference Range Interpretation Comments Red Cell Distribution Width (test code = 07527-5) 16.0 11.7 -14.4 H [facility] HospitalPlatelet Bsjno4404-27-45 11:54:00* Test Item Value Reference Range Interpretation Comments Platelet Count (test code = 777-3) 204 140-360 [facility] HospitalNeutrophils (%) (Auto)2018-07-11 11:54:00 * Test Item Value Reference Range Interpretation Comments Neutrophils (%) (Auto) (test code = 76756-7) 76.3 38.7-80.0 [facility] HospitalLymphocytes (%) (Auto)2018-07-11 11:54:00 * Test Item Value Reference Range Interpretation Comments Lymphocytes (%) (Auto) (test code = 736-9) 10.3 18.0-39.1 L [facility] HospitalMonocytes (%) (Auto)2018-07-11 11:54:00* Test Item Value Reference Range Interpretation Comments Monocytes (%) (Auto) (test code = 5905-5) 5.9 4.4-11.3 [facility] HospitalEosinophils (%) (Auto)2018-07-11 11:54:00 * Test Item Value Reference Range Interpretation Comments Eosinophils (%) (Auto) (test code = 713-8) 2.7 0.0-6.0 [facility] HospitalBasophils (%) (Auto)2018-07-11 11:54:00* Test Item Value Reference Range Interpretation Comments Basophils (%) (Auto) (test code = 706-2) 1.0 0.0-1.0 [facility] HospitalIM GRANULOCYTES %2018-07-11 11:54:00* Test Item Value Reference Range Interpretation Comments IM GRANULOCYTES % (test code = IM GRANULOCYTES %) 3.8 0.0- 1.0 H [facility] HospitalNeutrophils # (Auto)2018-07-11 11:54:00* Test Item Value Reference Range Interpretation Comments Neutrophils # (Auto) (test code = 751-8) 5.2 2.1-6.9 [facility] HospitalLymphocytes # (Auto)2018-07-11 11:54:00* Test Item Value Reference Range Interpretation Comments Lymphocytes # (Auto) (test code = 62841-8) 0.7 1.0-3.2 L [facility] HospitalMonocytes # (Auto)2018-07-11 11:54:00* Test Item Value Reference Range Interpretation Comments Monocytes # (Auto) (test code = 742-7) 0.4 0.2-0.8 [facility] HospitalEosinophils # (Auto)2018-07-11 11:54:00* Test Item Value Reference Range Interpretation Comments Eosinophils # (Auto) (test code = 711-2) 0.2 0.0-0.4 [facility] HospitalBasophils # (Auto)2018-07-11 11:54:00* Test Item Value Reference Range Interpretation Comments Basophils # (Auto) (test code = 704-7) 0.1 0.0-0.1 [facility] HospitalAbsolute Immature Granulocyte (auto 2018-07-11 11:54:00* Test Item Value Reference Range Interpretation Comments Absolute Immature Granulocyte (auto (joseph t code = Absolute Immature Granulocyte (auto) 0.26 0-0.1 H [facility] HospitalWhite Blood Dxaku9041-49-35 11:54:00* Test Item Value Reference Range Interpretation Comments White Blood Count (test code = 6690-2) 6.79 4.8-10.8 [facility] HospitalRed Blood Rbija3665-36-89 11:54:00* Test Item Value Reference Range Interpretation Comments Red Blood Count (test code = 789-8) 4.38 3.6-5.1 [facility] HospitalHemoglobin2018-12-19 11:54:00* Test Item Value Reference Range Interpretation Comments Hemoglobin (test code = 52996-3) 11.4 12.0-16.0 L [facility] HospitalHematocrit2018-12-19 11:54:00* Test Item Value Reference Range Interpretation Comments Hematocrit (test code = 4544-3) 38.1 34.2-44.1 [facility] HospitalMean Corpuscular Cyctjp2193-89-40 11:54:00* Test Item Value Reference Range Interpretation Comments Mean Corpuscular Volume (test code = 787-2) 87.0 81-99 [facility] HospitalMean Corpuscular Wtipaytfye8826-09-66 11:54:00* Test Item Value Reference Range Interpretation Comments Mean Corpuscular Hemoglobin (test code = 785-6) 26.0 28-32 L [facility] HospitalMean Corpuscular Hemoglobin Concent 2018-07-11 11:54:00* Test Item Value Reference Range Interpretation Comments Mean Corpuscular Hemoglobin Concent (test code = 786-4) 29.9 31-35 L [facility] HospitalRed Cell Distribution Oqast9634-90-59 11:54:00* Test Item Value Reference Range Interpretation Comments Red Cell Distribution Width (test code = 09656-5) 16.0 11.7 -14.4 H [facility] HospitalPlatelet Rcrmg4542-57-49 11:54:00* Test Item Value Reference Range Interpretation Comments Platelet Count (test code = 777-3) 204 140-360 [facility] HospitalNeutrophils (%) (Auto)2018-07-11 11:54:00 * Test Item Value Reference Range Interpretation Comments Neutrophils (%) (Auto) (test code = 66720-8) 76.3 38.7-80.0 [facility] HospitalLymphocytes (%) (Auto)2018-07-11 11:54:00 * Test Item Value Reference Range Interpretation Comments Lymphocytes (%) (Auto) (test code = 736-9) 10.3 18.0-39.1 L [facility] HospitalMonocytes (%) (Auto)2018-07-11 11:54:00* Test Item Value Reference Range Interpretation Comments Monocytes (%) (Auto) (test code = 5905-5) 5.9 4.4-11.3 [facility] HospitalEosinophils (%) (Auto)2018-07-11 11:54:00 * Test Item Value Reference Range Interpretation Comments Eosinophils (%) (Auto) (test code = 713-8) 2.7 0.0-6.0 [facility] HospitalBasophils (%) (Auto)2018-07-11 11:54:00* Test Item Value Reference Range Interpretation Comments Basophils (%) (Auto) (test code = 706-2) 1.0 0.0-1.0 [facility] HospitalIM GRANULOCYTES %2018-07-11 11:54:00* Test Item Value Reference Range Interpretation Comments IM GRANULOCYTES % (test code = IM GRANULOCYTES %) 3.8 0.0- 1.0 H [facility] HospitalNeutrophils # (Auto)2018-07-11 11:54:00* Test Item Value Reference Range Interpretation Comments Neutrophils # (Auto) (test code = 751-8) 5.2 2.1-6.9 [facility] HospitalLymphocytes # (Auto)2018-07-11 11:54:00* Test Item Value Reference Range Interpretation Comments Lymphocytes # (Auto) (test code = 79482-2) 0.7 1.0-3.2 L [facility] HospitalMonocytes # (Auto)2018-07-11 11:54:00* Test Item Value Reference Range Interpretation Comments Monocytes # (Auto) (test code = 742-7) 0.4 0.2-0.8 [facility] HospitalEosinophils # (Auto)2018-07-11 11:54:00* Test Item Value Reference Range Interpretation Comments Eosinophils # (Auto) (test code = 711-2) 0.2 0.0-0.4 [facility] HospitalBasophils # (Auto)2018-07-11 11:54:00* Test Item Value Reference Range Interpretation Comments Basophils # (Auto) (test code = 704-7) 0.1 0.0-0.1 [facility] HospitalAbsolute Immature Granulocyte (auto 2018-07-11 11:54:00* Test Item Value Reference Range Interpretation Comments Absolute Immature Granulocyte (auto (joseph t code = Absolute Immature Granulocyte (auto) 0.26 0-0.1 H [facility] HospitalCT CERVICAL SPINE NL3117-54-23 11:47:00 [place] [address] Patient Name: KALYANI TALAVERA MR #: [id number] : 1955 Age/Sex: 63/F Req #: [id number] Adm Physician: Ordered by: ELIESER DAWSON MD Report #: [id number] Location: ER Room/Bed: Procedure: [id number] CT/CT CERVICAL SPINE WO Exam Date: 07/11/18 [...] 1154 COPY TO: ELIESER DAWSON MD Bedside Dvvxypo2604-80-43 11:57:00* Test Item Value Reference Range Interpretation Comments Bedside Glucose (test code = 93965-0) 329 70-120 H Meter ID: [id number] [facility] Centerodium Level 2018-07-03 09:09:00* Test Item Value Reference Range Interpretation Comments Sodium Level (test code = 2951-2) 132 136-145 L [facility] HospitalPotassium Xnozp4061-11-95 09:09:00* Test Item Value Reference Range Interpretation Comments Potassium Level (test code = 2823-3) 4.6 3.5-5.1 [facility] HospitalChloride Zzpes3175-70-79 09:09:00* Test Item Value Reference Range Interpretation Comments Chloride Level (test code = 2075-0) 95 98-107 L [facility] HospitalCarbon Dioxide Cotvt5110-73-48 09:09:00* Test Item Value Reference Range Interpretation Comments Carbon Dioxide Level (test code = 2028-9) 24 22-29 [facility] HospitalAnion Hor9225-58-34 09:09:00* Test Item Value Reference Range Interpretation Comments Anion Gap (test code = 22025-3) 17.6 8-16 H [facility] HospitalBlood Urea Cmvaaqmx6588-49-15 09:09:00* Test Item Value Reference Range Interpretation Comments Blood Urea Nitrogen (test code = 3094-0) 52 7-26 H [facility] HospitalCreatinine2018-12-11 09:09:00* Test Item Value Reference Range Interpretation Comments Creatinine (test code = 2160-0) 1.72 0.57-1.11 H [facility] HospitalBUN/Creatinine Lcsws4264-71-20 09:09:00* Test Item Value Reference Range Interpretation Comments BUN/Creatinine Ratio (test code = 3097-3) 30 6-25 H [facility] HospitalEstimat Glomerular Filtration Rate 2018-07-03 09:09:00* Test Item Value Reference Range Interpretation Comments Estimat Glomerular Filtration Rate (test code = 042307101) 30 >60 L Ranges were taken from the National Kidney Disease Education Program and the [facility] literature.Reference ranges:60 or greater: Ffxvoe67-42 ( for 3 consecutive months): Chronic kidney disease 15 or less: Kidney failureHarris Health System Ben Taub HospitalGlucose Mgnuv3991-97-90 09:09:00* Test Item Value Reference Range Interpretation Comments Glucose Level (test code = LZD6761) 218 74-118 H [facility] HospitalCalcium Zybuv9879-54-32 09:09:00* Test Item Value Reference Range Interpretation Comments Calcium Level (test code = 41473-9) 9.1 8.4-10.2 [facility] HospitalTotal Upogzoggd5680-41-53 09:09:00* Test Item Value Reference Range Interpretation Comments Total Bilirubin (test code = 1975-2) 0.4 0.2-1.2 [facility] HospitalAspartate Amino Transf (AST/SGOT) 2018-07-03 09:09:00* Test Item Value Reference Range Interpretation Comments Aspartate Amino Transf (AST/SGOT) (test code = Aspartate Amino Transf (AST/SGOT)) 9 5-34 [facility] HospitalAlanine Aminotransferase (ALT/SGPT) 2018-07-03 09:09:00* Test Item Value Reference Range Interpretation Comments Alanine Aminotransferase (ALT/SGPT) (test code = 1742-6) 12 0-55 [facility] HospitalTotal Iqoophb6376-79-51 09:09:00* Test Item Value Reference Range Interpretation Comments Total Protein (test code = 2885-2) 7.2 6.5-8.1 [facility] HospitalAlbumin2018-12-11 09:09:00* Test Item Value Reference Range Interpretation Comments Albumin (test code = 1751-7) 3.4 3.5-5.0 L [facility] HospitalGlobulin2018-12-11 09:09:00* Test Item Value Reference Range Interpretation Comments Globulin (test code = 74833-7) 3.8 2.3-3.5 H [facility] HospitalAlbumin/Globulin Xugxj1571-17-37 09:09:00 * Test Item Value Reference Range Interpretation Comments Albumin/Globulin Ratio (test code = 1759-0) 0.9 0.8-2.0 [facility] HospitalAlkaline Tuukedmikjt8761-33-02 09:09:00* Test Item Value Reference Range Interpretation Comments Alkaline Phosphatase (test code = 6768-6) 59 40-150 [facility] HospitalCHEST SINGLE (NOT PORTABLE)2018-07-01 13:32:00 [facility] [address] [place] [address] Patient Name: KALYANI TALAVERA MR #: [id number] : 1955 Age/Sex: 63/F Req #: [id number] Adm Physician: LUCILLE OLIVO MD Ordered by: BENJAMIN MASTERS MD Report #: [id number] Location: [facility] Room/Bed: [place] [address] Procedure: [id number] DX/CHEST SINGLE (NOT PORTABLE) Exam Date: 07/01/18 [...] COPY TO: BENJAMIN MASTERS MD Hemoglobin A1c Cswhpdn3539-53-21 13:20:00* Test Item Value Reference Range Interpretation Comments Hemoglobin A1c Percent (test code = Hemoglobin A1c Percent) 8.4 4.0-7.0 H [facility] HospitalHemoglobin A1c Ivicaor0696-42-86 13:20:00 * Test Item Value Reference Range Interpretation Comments Hemoglobin A1c Percent (test code = Hemoglobin A1c Percent) 8.4 4.0-7.0 H [facility] HospitalHemoglobin A1c Rkaberz3476-51-14 13:20:00 * Test Item Value Reference Range Interpretation Comments Hemoglobin A1c Percent (test code = Hemoglobin A1c Percent) 8.4 4.0-7.0 H [facility] HospitalHemoglobin A1c Duyoqpr2234-27-73 13:20:00 * Test Item Value Reference Range Interpretation Comments Hemoglobin A1c Percent (test code = Hemoglobin A1c Percent) 8.4 4.0-7.0 H [facility] VENT AWLVVFJIC4157-08-26 16:24:00 [facility] [address] [place] [address] Patient Name: KALYANI TALAVERA MR #: [id number] : 1955 Age/Sex: 63/F Req #: [id number] Adm Physician: LUCILLE OLIVO MD Ordered by: JACINDA BUSTILLOS MD Report #: [id number] Location: [facility] Room/Bed: [place] [address] Procedure: [id number] N M/VQ LUNG SCAN VENT PERFUSION Exam [...] 27 PM Dictated By: TAMI JUNE MD 26 Transcribed By: JIM on 06/29/181626 COPY TO: JACINDA VILLAGOMEZ MD Creatine Kinase HZ8161-89-98 08:14:00* Test Item Value Reference Range Interpretation Comments Creatine Kinase MB (test code = 70569-0) 1.50 0-5.0 [facility] HospitalTroponin K9916-53-23 08:14:00* Test Item Value Reference Range Interpretation Comments Troponin I (test code = OEX8692) < 0.001 0-0.300 [facility] HospitalCreatine Ummnjd1632-69-79 08:07:00* Test Item Value Reference Range Interpretation Comments Creatine Kinase (test code = 2157-6) 61 29-168 [facility] [facility]ure[facility] Baqaqdg6038-26-70 07:10:00* Test Item Value Reference Range Interpretation Comments B-Type Natriuretic Peptide (test code = 82531-6) < 10.0 0-100 [facility] HospitalWhite Blood Lfxlm0428-79-15 05:51:00* Test Item Value Reference Range Interpretation Comments White Blood Count (test code = 6690-2) 6.29 4.8-10.8 [facility] HospitalRed Blood Zfaot2867-28-97 05:51:00* Test Item Value Reference Range Interpretation Comments Red Blood Count (test code = 789-8) 4.36 3.6-5.1 [facility] HospitalHemoglobin2018-12-06 05:51:00* Test Item Value Reference Range Interpretation Comments Hemoglobin (test code = 88085-3) 11.1 12.0-16.0 L [facility] HospitalHematocrit2018-12-06 05:51:00* Test Item Value Reference Range Interpretation Comments Hematocrit (test code = 4544-3) 37.1 34.2-44.1 [facility] HospitalMean Corpuscular Byhfxp2889-94-18 05:51:00* Test Item Value Reference Range Interpretation Comments Mean Corpuscular Volume (test code = 787-2) 85.1 81-99 [facility] HospitalMean Corpuscular Zwgggeitdj0011-83-41 05:51:00* Test Item Value Reference Range Interpretation Comments Mean Corpuscular Hemoglobin (test code = 785-6) 25.5 28-32 L [facility] HospitalMean Corpuscular Hemoglobin Concent 2018-06-28 05:51:00* Test Item Value Reference Range Interpretation Comments Mean Corpuscular Hemoglobin Concent (test code = 786-4) 29.9 31-35 L [facility] HospitalRed Cell Distribution Uyxyf0871-16-57 05:51:00* Test Item Value Reference Range Interpretation Comments Red Cell Distribution Width (test code = 09896-3) 15.7 11.7 -14.4 H [facility] HospitalPlatelet Wcbzq7003-59-74 05:51:00* Test Item Value Reference Range Interpretation Comments Platelet Count (test code = 777-3) 162 140-360 [facility] HospitalNeutrophils (%) (Auto)2018-06-28 05:51:00 * Test Item Value Reference Range Interpretation Comments Neutrophils (%) (Auto) (test code = 93671-7) 75.4 38.7-80.0 [facility] HospitalLymphocytes (%) (Auto)2018-06-28 05:51:00 * Test Item Value Reference Range Interpretation Comments Lymphocytes (%) (Auto) (test code = 736-9) 13.0 18.0-39.1 L [facility] HospitalMonocytes (%) (Auto)2018-06-28 05:51:00* Test Item Value Reference Range Interpretation Comments Monocytes (%) (Auto) (test code = 5905-5) 7.3 4.4-11.3 [facility] HospitalEosinophils (%) (Auto)2018-06-28 05:51:00 * Test Item Value Reference Range Interpretation Comments Eosinophils (%) (Auto) (test code = 713-8) 2.7 0.0-6.0 [facility] HospitalBasophils (%) (Auto)2018-06-28 05:51:00* Test Item Value Reference Range Interpretation Comments Basophils (%) (Auto) (test code = 706-2) 1.0 0.0-1.0 [facility] HospitalIM GRANULOCYTES %2018-06-28 05:51:00* Test Item Value Reference Range Interpretation Comments IM GRANULOCYTES % (test code = IM GRANULOCYTES %) 0.6 0.0- 1.0 [facility] HospitalNeutrophils # (Auto)2018-06-28 05:51:00* Test Item Value Reference Range Interpretation Comments Neutrophils # (Auto) (test code = 751-8) 4.7 2.1-6.9 [facility] HospitalLymphocytes # (Auto)2018-06-28 05:51:00* Test Item Value Reference Range Interpretation Comments Lymphocytes # (Auto) (test code = 36312-7) 0.8 1.0-3.2 L [facility] HospitalMonocytes # (Auto)2018-06-28 05:51:00* Test Item Value Reference Range Interpretation Comments Monocytes # (Auto) (test code = 742-7) 0.5 0.2-0.8 [facility] HospitalEosinophils # (Auto)2018-06-28 05:51:00* Test Item Value Reference Range Interpretation Comments Eosinophils # (Auto) (test code = 711-2) 0.2 0.0-0.4 [facility] HospitalBasophils # (Auto)2018-06-28 05:51:00* Test Item Value Reference Range Interpretation Comments Basophils # (Auto) (test code = 704-7) 0.1 0.0-0.1 [facility] HospitalAbsolute Immature Granulocyte (auto 2018-06-28 05:51:00* Test Item Value Reference Range Interpretation Comments Absolute Immature Granulocyte (auto (joseph t code = Absolute Immature Granulocyte (auto) 0.04 0-0.1 [facility] HospitalCHEST 2 XBMXU9158-78-08 04:37:00 [place] [address] Patient Name: KALYANI TALAVERA MR #: [id number] : 1955 Age/Sex: 63/F Req #: [id number] Adm Physician: Ordered by: JACQUES JANE MD Report #: [id number] Location: ER Room/Bed: Procedure: 1205- 0011 DX/CHEST [...] on 06/27/18439 COPY TO: JACQUES HOOD MD FPDPUEW3921-46-39 13:15:00 RUN DATE: 06/21/18 [facility] [place] PAGE 1 RUN TIME: 1316 Specimen Inqui ry RUN USER: INTERFACE PATIENT: KALYANI TALAVERA ACCT #: [id number] LOC: [place] U #: [id number] AGE/SX: 63/F ROOM: RE06/19/18REG DR: Kb Bradford MD : 57 BED: DIS: STATUS: [facility] [place]: SPEC #: [id number] RECD: 06/20/18 STATUS: SHREYA BROWN #: [id number] MARILEE: 06/19/18- [facility] DR: Kb Bradford MD ENTERED: 06/20/18 SP TYPE: STOMACH OTHR DR: Lucille Torres MDORDERED: GROSS COPIES TO: Lucille Nur MD [address] [place] [address] Kb Bradford Si, MD [address] [address] PROCEDURES: GROSS ( 06/21/18-124) TISSUES: ANTRAL BIOPSY - H-PYLORI CLINICAL HIST ORY COLLECTION DATE: 06/19/18 DYSPHAGIA, HEARTBURN POST-OP DIAGNOSIS: HIATAL HERNIA, GASTRITIS FINAL DIAGNOSIS Stomach, antrum, biopsy: REACTIVE GASTROPATHY CONTROLLED GIEMSA STAIN NEGATIVE FOR HELICOBAC TER ORGANISMS NEGATIVE FOR MALIGNANCY MARYAM/sm D 34417, 18243 MACROSCOPIC The specimen is received in formalin, labeled with the lis ent's name, identified as "antrum bx", and consists of two gutierrez biopsy tissue m easuring 0.3 cm each, submitted for H E and Giemsa stains. GROSS PERFORM ED AT [facility] CONTINUED ON NEXT PAG E RUN DATE: 06/21/18 [place] - Lab PAGE 2 RUN TIME: 1316 Specimen Inquiry RUN USER: INTERFACE SPEC #: [id number] PATIENT: KHANH TALAVERACornell GUARDADO #[id number] (Continued) MACROSCO PIC (Continued) [facility] [address] [place] [address], [place] [address] (p)[phone] MICROSCOPIC MICROSCOPIC PERFOR MED AT [facility] All of the stains, including any controls perfor med, stain appropriately. [facility] [address] [place], [place] [address] (p)[phone] PERFORMING SITE Diagnosis performed at: [facility], [address] [place] [address] Signed SIGNATURE ON FILE Stacey Fuller 06/21/18 1315 END OF REPORT B-Type Natriuretic Gnkvurf5651-41-62 03:14:00* Test Item Value Reference Range Interpretation Comments B-Type Natriuretic Peptide (test code = 58738-7) 10.5 0-100 [facility] HospitalCreatine Kinase YC3716-46-30 03:14:00* Test Item Value Reference Range Interpretation Comments Creatine Kinase MB (test code = 80988-1) 1.30 0-5.0 [facility] HospitalTroponin M7845-16-83 03:14:00* Test Item Value Reference Range Interpretation Comments Troponin I (test code = NCF7402) -0.001 0-0.300 [facility] HospitalBedside Jtidzxi0117-93-16 03:04:00* Test Item Value Reference Range Interpretation Comments Bedside Glucose (test code = 49333-4) 291 70-120 H Meter ID: [id number] Texas Medical Centerodium Level 2018-04-03 02:45:00* Test Item Value Reference Range Interpretation Comments Sodium Level (test code = 2951-2) 140 136-145 [facility] HospitalPotassium Maolu2336-11-09 02:45:00* Test Item Value Reference Range Interpretation Comments Potassium Level (test code = 2823-3) 3.8 3.5-5.1 [facility] HospitalChloride Nopyw6967-68-05 02:45:00* Test Item Value Reference Range Interpretation Comments Chloride Level (test code = 2075-0) 100 98-107 [facility] HospitalCarbon Dioxide Voode6079-27-38 02:45:00* Test Item Value Reference Range Interpretation Comments Carbon Dioxide Level (test code = 2028-9) 29 22-29 [facility] HospitalAnion Wlm9356-53-37 02:45:00* Test Item Value Reference Range Interpretation Comments Anion Gap (test code = 64790-5) 14.8 8-16 [facility] HospitalBlood Urea Lqtnoxey1957-53-05 02:45:00* Test Item Value Reference Range Interpretation Comments Blood Urea Nitrogen (test code = 3094-0) 49 7-26 H [facility] HospitalCreatinine2018-09-11 02:45:00* Test Item Value Reference Range Interpretation Comments Creatinine (test code = 2160-0) 1.93 0.57-1.11 H [facility] HospitalBUN/Creatinine Lcscz3980-68-48 02:45:00* Test Item Value Reference Range Interpretation Comments BUN/Creatinine Ratio (test code = 3097-3) 25 6-25 [facility] HospitalEstimat Glomerular Filtration Rate 2018-04-03 02:45:00* Test Item Value Reference Range Interpretation Comments Estimat Glomerular Filtration Rate (test code = 73045-1) 26 >60 L Ranges were taken from the National Kidney Disease Education Program and the [facility] Kidney Foundation literature.Reference ranges:60 or greater: Mkbzjx78-33 ( for 3 consecutive months): Chronic kidney disease 15 or less: Kidney failureHarris Health System Ben Ta[facility] HospitalGlucose Skdix7939-02-54 02:45:00* Test Item Value Reference Range Interpretation Comments Glucose Level (test code = SGC7958) 58 74-118 LL Results called to LU HARMONRN at 0244 on 04/03/18 by Francoise Proctor. RB [place]. [facility] HospitalCalcium Jrfgr4984-90-71 02:45:00* Test Item Value Reference Range Interpretation Comments Calcium Level (test code = 00409-9) 9.3 8.4-10.2 [facility] HospitalTotal Vorisaobk3827-09-88 02:45:00* Test Item Value Reference Range Interpretation Comments Total Bilirubin (test code = 1975-2) 0.2 0.2-1.2 [facility] HospitalAspartate Amino Transf (AST/SGOT) 2018-04-03 02:45:00* Test Item Value Reference Range Interpretation Comments Aspartate Amino Transf (AST/SGOT) (test code = Aspartate Amino Transf (AST/SGOT)) 18 5-34 [facility] HospitalAlanine Aminotransferase (ALT/SGPT) 2018-04-03 02:45:00* Test Item Value Reference Range Interpretation Comments Alanine Aminotransferase (ALT/SGPT) (test code = 1742-6) 18 0-55 [facility] HospitalTotal Osyevvq1335-67-90 02:45:00* Test Item Value Reference Range Interpretation Comments Total Protein (test code = 2885-2) 7.3 6.5-8.1 [facility] HospitalAlbumin2018-09-11 02:45:00* Test Item Value Reference Range Interpretation Comments Albumin (test code = 1751-7) 3.5 3.5-5.0 [facility] HospitalGlobulin2018-09-11 02:45:00* Test Item Value Reference Range Interpretation Comments Globulin (test code = 93286-2) 3.8 2.3-3.5 H [facility] HospitalAlbumin/Globulin Hfsol8667-51-78 02:45:00 * Test Item Value Reference Range Interpretation Comments Albumin/Globulin Ratio (test code = 1759-0) 0.9 0.8-2.0 [facility] HospitalAlkaline Dgdjbrxundb1849-82-96 02:45:00* Test Item Value Reference Range Interpretation Comments Alkaline Phosphatase (test code = 6768-6) 56 40-150 [facility] HospitalCreatine Xsryhp7208-40-12 02:45:00* Test Item Value Reference Range Interpretation Comments Creatine Kinase (test code = 2157-6) 54 29-168 [facility] HospitalUrine Bwcft1012-08-39 02:37:00* Test Item Value Reference Range Interpretation Comments Urine Color (test code = 5778-6) COLORLESS YELLOW [facility] HospitalUrine Ywtnnwy1305-58-23 02:37:00* Test Item Value Reference Range Interpretation Comments Urine Clarity (test code = 72601-3) CLEAR CLEAR [facility] HospitalUrine Specific Qlxdchv5067-81-75 02:37:00 * Test Item Value Reference Range Interpretation Comments Urine Specific [place] (test code = 5811-5) 1.005 1.010-1.02 5 L [facility] HospitalUrine bM8492-25-61 02:37:00* Test Item Value Reference Range Interpretation Comments Urine pH (test code = 97603-4) 7 5-7 [facility] HospitalUrine Leukocyte Eaaznnef3134-03-22 02:37:00* Test Item Value Reference Range Interpretation Comments Urine Leukocyte Esterase (test code = 5799-2) NEGATIVE NEGATIVE [facility] HospitalUrine Morqrwy9333-06-89 02:37:00* Test Item Value Reference Range Interpretation Comments Urine Nitrite (test code = 91425-5) NEGATIVE NEGATIVE [facility] HospitalUrine Yszitcq3172-05-44 02:37:00* Test Item Value Reference Range Interpretation Comments Urine Protein (test code = 5804-0) NEGATIVE NEGATIVE [facility] HospitalUrine Glucose (UA)2018-04-03 02:37:00* Test Item Value Reference Range Interpretation Comments Urine Glucose (UA) (test code = 2349-9) NEGATIVE NEGATIVE [facility] HospitalUrine Civoryu8129-14-89 02:37:00* Test Item Value Reference Range Interpretation Comments Urine Ketones (test code = 64516-4) NEGATIVE NEGATIVE [facility] HospitalUrine Zlternhscrko6923-80-11 02:37:00* Test Item Value Reference Range Interpretation Comments Urine Urobilinogen (test code = 18891-4) 0.2 0.2-1 [facility] HospitalUrine Rrsakppzl4763-37-31 02:37:00* Test Item Value Reference Range Interpretation Comments Urine Bilirubin (test code = 1978-6) NEGATIVE NEGATIVE [facility] HospitalUrine Abshd4212-08-39 02:37:00* Test Item Value Reference Range Interpretation Comments Urine Blood (test code = 29378-3) TRACE NEGATIVE H [facility] HospitalUrine IGQ2286-62-66 02:37:00* Test Item Value Reference Range Interpretation Comments Urine WBC (test code = 5821-4) 0-5 0-5 [facility] HospitalUrine SOA2312-23-52 02:37:00* Test Item Value Reference Range Interpretation Comments Urine RBC (test code = 97862-6) 0-5 0-5 [facility] Wnzulnwv4059-59-10 02:37:00* Test Item Value Reference Range Interpretation Comments Urine Bacteria (test code = 61810-9) RARE NONE [facility] HospitalUrine Epithelial Hbtlu0270-54-95 02:37:00 * Test Item Value Reference Range Interpretation Comments Urine Epithelial Cells (test code = 23579-7) FEW NONE [facility] HospitalUrine Ozqwj7671-75-86 02:37:00* Test Item Value Reference Range Interpretation Comments Urine Color (test code = 5778-6) COLORLESS YELLOW [facility] HospitalUrine Gjbybot2468-88-23 02:37:00* Test Item Value Reference Range Interpretation Comments Urine Clarity (test code = 43122-5) CLEAR CLEAR [facility] HospitalUrine Specific Nuoadqf9476-01-10 02:37:00 * Test Item Value Reference Range Interpretation Comments Urine Specific [place] (test code = 5811-5) 1.005 1.010-1.02 5 L [facility] HospitalUrine jA6887-66-17 02:37:00* Test Item Value Reference Range Interpretation Comments Urine pH (test code = 41598-5) 7 5-7 [facility] HospitalUrine Leukocyte Nzdrqxfb2201-58-62 02:37:00* Test Item Value Reference Range Interpretation Comments Urine Leukocyte Esterase (test code = 5799-2) NEGATIVE NEGATIVE [facility] HospitalUrine Yflovtw8265-78-02 02:37:00* Test Item Value Reference Range Interpretation Comments Urine Nitrite (test code = 62856-5) NEGATIVE NEGATIVE [facility] HospitalUrine Qmczdzw6711-52-15 02:37:00* Test Item Value Reference Range Interpretation Comments Urine Protein (test code = 5804-0) NEGATIVE NEGATIVE [facility] HospitalUrine Glucose (UA)2018-04-03 02:37:00* Test Item Value Reference Range Interpretation Comments Urine Glucose (UA) (test code = 2349-9) NEGATIVE NEGATIVE [facility] HospitalUrine Srlngdi5602-36-56 02:37:00* Test Item Value Reference Range Interpretation Comments Urine Ketones (test code = 02448-6) NEGATIVE NEGATIVE [facility] Hdwxmoscwbat2439-35-43 02:37:00* Test Item Value Reference Range Interpretation Comments Urine Urobilinogen (test code = 53051-0) 0.2 0.2-1 [facility] Hlgnosxiv6902-25-22 02:37:00* Test Item Value Reference Range Interpretation Comments Urine Bilirubin (test code = 1978-6) NEGATIVE NEGATIVE [facility] Bpmtt4755-09-71 02:37:00* Test Item Value Reference Range Interpretation Comments Urine Blood (test code = 86092-8) TRACE NEGATIVE H [facility] HospitalUrine ACI5434-89-36 02:37:00* Test Item Value Reference Range Interpretation Comments Urine WBC (test code = 5821-4) 0-5 0-5 [facility] HospitalUrine LVP3148-69-11 02:37:00* Test Item Value Reference Range Interpretation Comments Urine RBC (test code = 65517-9) 0-5 0-5 [facility] Nfjzutfr6867-87-84 02:37:00* Test Item Value Reference Range Interpretation Comments Urine Bacteria (test code = 98554-6) RARE NONE [facility] HospitalUrine Epithelial Zoora0834-30-20 02:37:00 * Test Item Value Reference Range Interpretation Comments Urine Epithelial Cells (test code = 83426-3) FEW NONE [facility] HospitalUrine Trnrj5886-75-87 02:37:00* Test Item Value Reference Range Interpretation Comments Urine Color (test code = 5778-6) COLORLESS YELLOW [facility] HospitalUrine Myltdfa6383-35-58 02:37:00* Test Item Value Reference Range Interpretation Comments Urine Clarity (test code = 66026-6) CLEAR CLEAR [facility] Specific Aogjnyc6041-68-43 02:37:00 * Test Item Value Reference Range Interpretation Comments Urine Specific [place] (test code = 5811-5) 1.005 1.010-1.02 5 L [facility] HospitalUrine bT3061-32-12 02:37:00* Test Item Value Reference Range Interpretation Comments Urine pH (test code = 01899-5) 7 5-7 [facility] Leukocyte Whocbwyo7976-61-40 02:37:00* Test Item Value Reference Range Interpretation Comments Urine Leukocyte Esterase (test code = 5799-2) NEGATIVE NEGATIVE [facility] Nlrphlz6697-29-85 02:37:00* Test Item Value Reference Range Interpretation Comments Urine Nitrite (test code = 51201-3) NEGATIVE NEGATIVE [facility] HospitalUrine Qjvvpyt7505-63-39 02:37:00* Test Item Value Reference Range Interpretation Comments Urine Protein (test code = 5804-0) NEGATIVE NEGATIVE [facility] HospitalUrine Glucose (UA)2018-04-03 02:37:00* Test Item Value Reference Range Interpretation Comments Urine Glucose (UA) (test code = 2349-9) NEGATIVE NEGATIVE [facility] Pxamikm5011-92-78 02:37:00* Test Item Value Reference Range Interpretation Comments Urine Ketones (test code = 67486-9) NEGATIVE NEGATIVE [facility] Zdqwtcbamayg8348-96-34 02:37:00* Test Item Value Reference Range Interpretation Comments Urine Urobilinogen (test code = 94842-5) 0.2 0.2-1 [facility] Fcwzwyvsq0965-57-56 02:37:00* Test Item Value Reference Range Interpretation Comments Urine Bilirubin (test code = 1978-6) NEGATIVE NEGATIVE [facility] HospitalUrine Tlhgl0524-55-73 02:37:00* Test Item Value Reference Range Interpretation Comments Urine Blood (test code = 70353-9) TRACE NEGATIVE H [facility] HospitalUrine QJW5512-84-13 02:37:00* Test Item Value Reference Range Interpretation Comments Urine WBC (test code = 5821-4) 0-5 0-5 [facility] HospitalUrine EZR6531-95-26 02:37:00* Test Item Value Reference Range Interpretation Comments Urine RBC (test code = 66550-4) 0-5 0-5 [facility] HospitalUrine Ymgqmvfx8922-73-46 02:37:00* Test Item Value Reference Range Interpretation Comments Urine Bacteria (test code = 98542-7) RARE NONE [facility] HospitalUrine Epithelial Fyhsb3177-41-07 02:37:00 * Test Item Value Reference Range Interpretation Comments Urine Epithelial Cells (test code = 36407-5) FEW NONE [facility] HospitalUrine Enbdm4028-33-54 02:37:00* Test Item Value Reference Range Interpretation Comments Urine Color (test code = 5778-6) COLORLESS YELLOW [facility] HospitalUrine Ighngxk2632-91-20 02:37:00* Test Item Value Reference Range Interpretation Comments Urine Clarity (test code = 58892-8) CLEAR CLEAR [facility] HospitalUrine Specific Kpkdwnk9973-48-00 02:37:00 * Test Item Value Reference Range Interpretation Comments Urine Specific [place] (test code = 5811-5) 1.005 1.010-1.02 5 L [facility] HospitalUrine eM2741-30-81 02:37:00* Test Item Value Reference Range Interpretation Comments Urine pH (test code = 02953-8) 7 5-7 [facility] HospitalUrine Leukocyte Dttvrykg9290-90-04 02:37:00* Test Item Value Reference Range Interpretation Comments Urine Leukocyte Esterase (test code = 5799-2) NEGATIVE NEGATIVE [facility] HospitalUrine Tnefuvk3453-09-01 02:37:00* Test Item Value Reference Range Interpretation Comments Urine Nitrite (test code = 82649-3) NEGATIVE NEGATIVE [facility] HospitalUrine Cahpthq2498-73-75 02:37:00* Test Item Value Reference Range Interpretation Comments Urine Protein (test code = 5804-0) NEGATIVE NEGATIVE [facility] HospitalUrine Glucose (UA)2018-04-03 02:37:00* Test Item Value Reference Range Interpretation Comments Urine Glucose (UA) (test code = 2349-9) NEGATIVE NEGATIVE [facility] HospitalUrine Qukbdfz5386-22-94 02:37:00* Test Item Value Reference Range Interpretation Comments Urine Ketones (test code = 26943-2) NEGATIVE NEGATIVE [facility] HospitalUrine Nmhkpsaoypvi1064-69-90 02:37:00* Test Item Value Reference Range Interpretation Comments Urine Urobilinogen (test code = 50750-1) 0.2 0.2-1 [facility] HospitalUrine Toziwltss7722-38-43 02:37:00* Test Item Value Reference Range Interpretation Comments Urine Bilirubin (test code = 1978-6) NEGATIVE NEGATIVE [facility] HospitalUrine Bpqzb2537-36-42 02:37:00* Test Item Value Reference Range Interpretation Comments Urine Blood (test code = 72288-6) TRACE NEGATIVE H [facility] HospitalUrine QFX9379-54-11 02:37:00* Test Item Value Reference Range Interpretation Comments Urine WBC (test code = 5821-4) 0-5 0-5 [facility] HospitalUrine OWA3982-59-01 02:37:00* Test Item Value Reference Range Interpretation Comments Urine RBC (test code = 13785-4) 0-5 0-5 [facility] HospitalUrine Akbmualk0219-74-56 02:37:00* Test Item Value Reference Range Interpretation Comments Urine Bacteria (test code = 56699-6) RARE NONE [facility] HospitalUrine Epithelial Pquxd9547-65-02 02:37:00 * Test Item Value Reference Range Interpretation Comments Urine Epithelial Cells (test code = 02453-3) FEW NONE [facility] HospitalWhite Blood Ngmhe4352-10-98 02:30:00* Test Item Value Reference Range Interpretation Comments White Blood Count (test code = 6690-2) 6.05 4.8-10.8 [facility] HospitalRed Blood Tcmos7420-29-31 02:30:00* Test Item Value Reference Range Interpretation Comments Red Blood Count (test code = 789-8) 4.43 3.6-5.1 [facility] HospitalHemoglobin2018-09-11 02:30:00* Test Item Value Reference Range Interpretation Comments Hemoglobin (test code = 05913-1) 11.5 12.0-16.0 L [facility] HospitalHematocrit2018-09-11 02:30:00* Test Item Value Reference Range Interpretation Comments Hematocrit (test code = 4544-3) 38.3 34.2-44.1 [facility] HospitalMean Corpuscular Dnprks3873-48-75 02:30:00* Test Item Value Reference Range Interpretation Comments Mean Corpuscular Volume (test code = 787-2) 86.5 81-99 [facility] HospitalMean Corpuscular Hfcewhmgkt1962-41-99 02:30:00* Test Item Value Reference Range Interpretation Comments Mean Corpuscular Hemoglobin (test code = 785-6) 26.0 28-32 L [facility] HospitalMean Corpuscular Hemoglobin Concent 2018-04-03 02:30:00* Test Item Value Reference Range Interpretation Comments Mean Corpuscular Hemoglobin Concent (test code = 786-4) 30.0 31-35 L [facility] HospitalRed Cell Distribution Cgphu6699-51-99 02:30:00* Test Item Value Reference Range Interpretation Comments Red Cell Distribution Width (test code = 74014-6) 15.9 11.7 -14.4 H [facility] HospitalPlatelet Aigfg0071-25-15 02:30:00* Test Item Value Reference Range Interpretation Comments Platelet Count (test code = 777-3) 175 140-360 [facility] HospitalNeutrophils (%) (Auto)2018-04-03 02:30:00 * Test Item Value Reference Range Interpretation Comments Neutrophils (%) (Auto) (test code = 91408-5) 69.7 38.7-80.0 [facility] HospitalLymphocytes (%) (Auto)2018-04-03 02:30:00 * Test Item Value Reference Range Interpretation Comments Lymphocytes (%) (Auto) (test code = 736-9) 18.5 18.0-39.1 [facility] HospitalMonocytes (%) (Auto)2018-04-03 02:30:00* Test Item Value Reference Range Interpretation Comments Monocytes (%) (Auto) (test code = 5905-5) 6.8 4.4-11.3 [facility] HospitalEosinophils (%) (Auto)2018-04-03 02:30:00 * Test Item Value Reference Range Interpretation Comments Eosinophils (%) (Auto) (test code = 713-8) 3.3 0.0-6.0 [facility] HospitalBasophils (%) (Auto)2018-04-03 02:30:00* Test Item Value Reference Range Interpretation Comments Basophils (%) (Auto) (test code = 706-2) 1.0 0.0-1.0 [facility] HospitalIM GRANULOCYTES %2018-04-03 02:30:00* Test Item Value Reference Range Interpretation Comments IM GRANULOCYTES % (test code = IM GRANULOCYTES %) 0.7 0.0- 1.0 [facility] HospitalNeutrophils # (Auto)2018-04-03 02:30:00* Test Item Value Reference Range Interpretation Comments Neutrophils # (Auto) (test code = 751-8) 4.2 2.1-6.9 [facility] HospitalLymphocytes # (Auto)2018-04-03 02:30:00* Test Item Value Reference Range Interpretation Comments Lymphocytes # (Auto) (test code = 18426-5) 1.1 1.0-3.2 [facility] HospitalMonocytes # (Auto)2018-04-03 02:30:00* Test Item Value Reference Range Interpretation Comments Monocytes # (Auto) (test code = 742-7) 0.4 0.2-0.8 [facility] HospitalEosinophils # (Auto)2018-04-03 02:30:00* Test Item Value Reference Range Interpretation Comments Eosinophils # (Auto) (test code = 711-2) 0.2 0.0-0.4 [facility] HospitalBasophils # (Auto)2018-04-03 02:30:00* Test Item Value Reference Range Interpretation Comments Basophils # (Auto) (test code = 704-7) 0.1 0.0-0.1 [facility] HospitalAbsolute Immature Granulocyte (auto 2018-04-03 02:30:00* Test Item Value Reference Range Interpretation Comments Absolute Immature Granulocyte (auto (joseph t code = Absolute Immature Granulocyte (auto) 0.04 0-0.1 [facility] HospitalCHEST SINGLE (PORTABLE)2018-04-03 02:16:00 [place] [address] Patient Name: KALYANI TALAVERA MR #: [id number] : 1955 Age/Sex: 63/F Req #: [id number] Adm Physician: Ordered by: ROBERT OLIVIA MD Report #: [id number] Location: ER Room/Bed: Procedure: [id number] DX/CHEST SINGLE (PORTABLE) Ex am Date: Exam [...] 04/03/18216 COPY TO: ROBERT OLIVIA MD Bedside Xxplktw4927-15-15 11:36:00* Test Item Value Reference Range Interpretation Comments Bedside Glucose (test code = 18268-0) 348 70-120 H Meter ID: [id number] [facility] HospitalCreatine Kinase MB 2018-02-05 06:30:00* Test Item Value Reference Range Interpretation Comments Creatine Kinase MB (test code = 12092-5) 1.40 0-5.0 [facility] HospitalTroponin V3830-21-23 06:30:00* Test Item Value Reference Range Interpretation Comments Troponin I (test code = USD4571) 0.007 0-0.300 [facility] HospitalCreatine Bhazao7603-59-42 06:23:00* Test Item Value Reference Range Interpretation Comments Creatine Kinase (test code = 2157-6) 53 29-168 [facility] HospitalTriglycerides Tfzsj4700-46-78 06:10:00* Test Item Value Reference Range Interpretation Comments Triglycerides Level (test code = 2571-8) 159 0-149 H [facility] HospitalCholesterol Lsjtk4101-10-27 06:10:00* Test Item Value Reference Range Interpretation Comments Cholesterol Level (test code = 2093-3) 180 0-199 Less than 200 mg/dL Low Dnjc542 - 239 mg/dL Borderline Ntjf897 m g/dl and greater High Risk [facility] HospitalLDL Ccvuojfwebg8260-48-48 06:10:00* Test Item Value Reference Range Interpretation Comments LDL Cholesterol (test code = 2089-1) 118 60-130 [facility] Ytpzenzpfow8138-05-00 06:10:00* Test Item Value Reference Range Interpretation Comments HDL Cholesterol (test code = 2085-9) 30 40-60 L [facility] HospitalCholesterol/HDL Pscbq8835-92-85 06:10:00 * Test Item Value Reference Range Interpretation Comments Cholesterol/HDL Ratio (test code = 9830-1) 6.0 3.0-3.6 H [facility] HospitalTriglycerides Dplfi3673-38-79 06:10:00* Test Item Value Reference Range Interpretation Comments Triglycerides Level (test code = 2571-8) 159 0-149 H [facility] HospitalCholesterol Mltwf5331-77-61 06:10:00* Test Item Value Reference Range Interpretation Comments Cholesterol Level (test code = 2093-3) 180 0-199 Less than 200 mg/dL Low Ibon013 - 239 mg/dL Borderline Wtwk908 m g/dl and greater High Risk [facility] Uarltjsovpd7300-61-78 06:10:00* Test Item Value Reference Range Interpretation Comments LDL Cholesterol (test code = 2089-1) 118 60-130 [facility] Qjybeecuctp7790-17-42 06:10:00* Test Item Value Reference Range Interpretation Comments HDL Cholesterol (test code = 2085-9) 30 40-60 L [facility] HospitalCholesterol/HDL Fzrvo1099-65-56 06:10:00 * Test Item Value Reference Range Interpretation Comments Cholesterol/HDL Ratio (test code = 9830-1) 6.0 3.0-3.6 H [facility] HospitalTriglycerides Hcrof8031-43-07 06:10:00* Test Item Value Reference Range Interpretation Comments Triglycerides Level (test code = 2571-8) 159 0-149 H [facility] HospitalCholesterol Gnvhy8138-20-88 06:10:00* Test Item Value Reference Range Interpretation Comments Cholesterol Level (test code = 2093-3) 180 0-199 Less than 200 mg/dL Low Khsp230 - 239 mg/dL Borderline Mvzw342 m g/dl and greater High Risk [facility] HospitalLDL Bfmhggseutr9611-34-45 06:10:00* Test Item Value Reference Range Interpretation Comments LDL Cholesterol (test code = 2089-1) 118 60-130 [facility] Zdeqextqfec3762-87-57 06:10:00* Test Item Value Reference Range Interpretation Comments HDL Cholesterol (test code = 2085-9) 30 40-60 L [facility] HospitalCholesterol/HDL Cgcct7686-10-28 06:10:00 * Test Item Value Reference Range Interpretation Comments Cholesterol/HDL Ratio (test code = 9830-1) 6.0 3.0-3.6 H [facility] HospitalTriglycerides Skwmm0996-67-62 06:10:00* Test Item Value Reference Range Interpretation Comments Triglycerides Level (test code = 2571-8) 159 0-149 H [facility] HospitalCholesterol Nenzj4070-88-07 06:10:00* Test Item Value Reference Range Interpretation Comments Cholesterol Level (test code = 2093-3) 180 0-199 Less than 200 mg/dL Low Fven504 - 239 mg/dL Borderline Turn382 m g/dl and greater High Risk [facility] HospitalLDL Jvwybqnkeup0714-37-13 06:10:00* Test Item Value Reference Range Interpretation Comments LDL Cholesterol (test code = 2089-1) 118 60-130 [facility] Kgrirbkvmpj3709-82-67 06:10:00* Test Item Value Reference Range Interpretation Comments HDL Cholesterol (test code = 2085-9) 30 40-60 L [facility] HospitalCholesterol/HDL Bnwyj8585-24-25 06:10:00 * Test Item Value Reference Range Interpretation Comments Cholesterol/HDL Ratio (test code = 9830-1) 6.0 3.0-3.6 H [facility] HospitalTriglycerides Qbrpv3626-88-60 06:10:00* Test Item Value Reference Range Interpretation Comments Triglycerides Level (test code = 2571-8) 159 0-149 H [facility] HospitalCholesterol Dknnd2054-93-93 06:10:00* Test Item Value Reference Range Interpretation Comments Cholesterol Level (test code = 2093-3) 180 0-199 Less than 200 mg/dL Low Mwyx954 - 239 mg/dL Borderline Vihj536 m g/dl and greater High Risk [facility] HospitalLDL Orgflnlspkf1779-32-94 06:10:00* Test Item Value Reference Range Interpretation Comments LDL Cholesterol (test code = 2089-1) 118 60-130 [facility] HospitalHDL Mvgxpsiirew3237-58-07 06:10:00* Test Item Value Reference Range Interpretation Comments HDL Cholesterol (test code = 2085-9) 30 40-60 L [facility] HospitalCholesterol/HDL Jacnn2651-74-95 06:10:00 * Test Item Value Reference Range Interpretation Comments Cholesterol/HDL Ratio (test code = 9830-1) 6.0 3.0-3.6 H [facility] HospitalCHEST SINGLE (PORTABLE)2018-02-04 11:35:00 [facility] [address] [place] [address] Patient Name: KALYANI TALAVERA MR #: [id number] : 1955 Age/Sex: 62/F Req #: [id number] Adm Physician: Ordered by: ROBERT OLIVIA MD Report #: [id number] Location: ER Room/Bed: Procedure: [id number] DX/CHEST SINGLE (PORTABLE) Ex am Date: 02/04/18 [...] 11:35 AM Dictated By: NEIL BURGER MD 1135 Transcribed By: JIM on 02/04/18 1135 COPY TO: ROBERT OLIVIA MD White Blood Ppkxv3413-14-50 11:19:00* Test Item Value Reference Range Interpretation Comments White Blood Count (test code = 6690-2) 6.94 4.8-10.8 [facility] HospitalRed Blood Mbjgv3796-29-09 11:19:00* Test Item Value Reference Range Interpretation Comments Red Blood Count (test code = 789-8) 4.49 3.6-5.1 [facility] HospitalHemoglobin2018-07-15 11:19:00* Test Item Value Reference Range Interpretation Comments Hemoglobin (test code = 75496-1) 11.3 12.0-16.0 L [facility] HospitalHematocrit2018-07-15 11:19:00* Test Item Value Reference Range Interpretation Comments Hematocrit (test code = 4544-3) 37.6 34.2-44.1 [facility] HospitalMean Corpuscular Kgnqcp2095-01-31 11:19:00* Test Item Value Reference Range Interpretation Comments Mean Corpuscular Volume (test code = 787-2) 83.7 81-99 [facility] HospitalMean Corpuscular Ulwlngqcad4483-66-55 11:19:00* Test Item Value Reference Range Interpretation Comments Mean Corpuscular Hemoglobin (test code = 785-6) 25.2 28-32 L [facility] HospitalMean Corpuscular Hemoglobin Concent 2018-02-04 11:19:00* Test Item Value Reference Range Interpretation Comments Mean Corpuscular Hemoglobin Concent (test code = 786-4) 30.1 31-35 L [facility] HospitalRed Cell Distribution Dtyvo0961-98-19 11:19:00* Test Item Value Reference Range Interpretation Comments Red Cell Distribution Width (test code = 64447-3) 15.7 11.7 -14.4 H [facility] HospitalPlatelet Hnnjc0393-46-89 11:19:00* Test Item Value Reference Range Interpretation Comments Platelet Count (test code = 777-3) 217 140-360 [facility] HospitalNeutrophils (%) (Auto)2018-02-04 11:19:00 * Test Item Value Reference Range Interpretation Comments Neutrophils (%) (Auto) (test code = 11873-8) 70.5 38.7-80.0 [facility] HospitalLymphocytes (%) (Auto)2018-02-04 11:19:00 * Test Item Value Reference Range Interpretation Comments Lymphocytes (%) (Auto) (test code = 736-9) 19.0 18.0-39.1 [facility] HospitalMonocytes (%) (Auto)2018-02-04 11:19:00* Test Item Value Reference Range Interpretation Comments Monocytes (%) (Auto) (test code = 5905-5) 5.3 4.4-11.3 [facility] HospitalEosinophils (%) (Auto)2018-02-04 11:19:00 * Test Item Value Reference Range Interpretation Comments Eosinophils (%) (Auto) (test code = 713-8) 3.2 0.0-6.0 [facility] HospitalBasophils (%) (Auto)2018-02-04 11:19:00* Test Item Value Reference Range Interpretation Comments Basophils (%) (Auto) (test code = 706-2) 1.0 0.0-1.0 [facility] HospitalIM GRANULOCYTES %2018-02-04 11:19:00* Test Item Value Reference Range Interpretation Comments IM GRANULOCYTES % (test code = IM GRANULOCYTES %) 1.0 0.0- 1.0 [facility] HospitalNeutrophils # (Auto)2018-02-04 11:19:00* Test Item Value Reference Range Interpretation Comments Neutrophils # (Auto) (test code = 751-8) 4.9 2.1-6.9 [facility] HospitalLymphocytes # (Auto)2018-02-04 11:19:00* Test Item Value Reference Range Interpretation Comments Lymphocytes # (Auto) (test code = 07193-8) 1.3 1.0-3.2 [facility] HospitalMonocytes # (Auto)2018-02-04 11:19:00* Test Item Value Reference Range Interpretation Comments Monocytes # (Auto) (test code = 742-7) 0.4 0.2-0.8 [facility] HospitalEosinophils # (Auto)2018-02-04 11:19:00* Test Item Value Reference Range Interpretation Comments Eosinophils # (Auto) (test code = 711-2) 0.2 0.0-0.4 [facility] HospitalBasophils # (Auto)2018-02-04 11:19:00* Test Item Value Reference Range Interpretation Comments Basophils # (Auto) (test code = 704-7) 0.1 0.0-0.1 [facility] HospitalAbsolute Immature Granulocyte (auto 2018-02-04 11:19:00* Test Item Value Reference Range Interpretation Comments Absolute Immature Granulocyte (auto (joseph t code = Absolute Immature Granulocyte (auto) 0.07 0-0.1 [facility] HospitalUrine Zsxrv3813-98-52 11:17:00* Test Item Value Reference Range Interpretation Comments Urine Color (test code = 5778-6) YELLOW YELLOW [facility] HospitalUrine Tecicnf8542-43-28 11:17:00* Test Item Value Reference Range Interpretation Comments Urine Clarity (test code = 69211-2) CLEAR CLEAR [facility] HospitalUrine Specific Znaayns1900-30-04 11:17:00 * Test Item Value Reference Range Interpretation Comments Urine Specific [place] (test code = 5811-5) 1.010 1.010-1.02 5 [facility] HospitalUrine vN3035-60-60 11:17:00* Test Item Value Reference Range Interpretation Comments Urine pH (test code = 97586-5) 6 5-7 [facility] HospitalUrine Leukocyte Eyxadzpg2852-63-58 11:17:00* Test Item Value Reference Range Interpretation Comments Urine Leukocyte Esterase (test code = 5799-2) NEGATIVE NEGATIVE [facility] HospitalUrine Ortljwr4792-01-14 11:17:00* Test Item Value Reference Range Interpretation Comments Urine Nitrite (test code = 85741-0) NEGATIVE NEGATIVE [facility] HospitalUrine Prhhtwk5934-00-64 11:17:00* Test Item Value Reference Range Interpretation Comments Urine Protein (test code = 5804-0) NEGATIVE NEGATIVE [facility] Glucose (UA)2018-02-04 11:17:00* Test Item Value Reference Range Interpretation Comments Urine Glucose (UA) (test code = 2349-9) NEGATIVE NEGATIVE [facility] HospitalUrine Qmsfgwq2323-14-20 11:17:00* Test Item Value Reference Range Interpretation Comments Urine Ketones (test code = 58893-1) NEGATIVE NEGATIVE [facility] HospitalUrine Opiates Immgro6097-61-48 11:17:00* Test Item Value Reference Range Interpretation Comments Urine Opiates Screen (test code = 98004-2) NEGATIVE NEGATIVE [facility] HospitalUrine Barbiturates Kcmlvt8775-08-79 11:17:00* Test Item Value Reference Range Interpretation Comments Urine Barbiturates Screen (test code = 696064426) NEGATIVE NEGA TIVE [facility] HospitalUrine Phencyclidine Uzjpdv8660-90-18 11:17:00* Test Item Value Reference Range Interpretation Comments Urine Phencyclidine Screen (test code = 50504-4) NEGATIVE NEGAT MARY [facility] HospitalUrine Amphetamines Cnxoxs1439-03-94 11:17:00* Test Item Value Reference Range Interpretation Comments Urine Amphetamines Screen (test code = 07442-6) NEGATIVE NEGATI VE [facility] HospitalUrine Methamphetamines Wnpint9545-29-23 11:17:00* Test Item Value Reference Range Interpretation Comments Urine Methamphetamines Screen (test code = Urine Metha mphetamines Screen) NEGATIVE NEGATIVE [facility] HospitalUrine Benzodiazepines Uapgao5194-21-72 11:17:00* Test Item Value Reference Range Interpretation Comments Urine Benzodiazepines Screen (test code = 27913-9) NEGATIVE NEG ATIVE [facility] HospitalUrine Cocaine Imayxs3474-04-06 11:17:00* Test Item Value Reference Range Interpretation Comments Urine Cocaine Screen (test code = 3398-5) NEGATIVE NEGATIVE [facility] HospitalUrine Cannabinoids Gzhens2544-03-49 11:17:00* Test Item Value Reference Range Interpretation Comments Urine Cannabinoids Screen (test code = 54552-4) NEGATIVE NEGATI VE THESE RESULTS ARE FOR MEDICAL TREATMENT ONLYTHIS REPORT CONTAINS UNCONFIR MED SCREENING RESULTS*POSITIVE RESULTS WILL BE CONFIRMED BY REFERENCE LAB UPON R EQUEST CUT-OFFDRUG CLASS CONCENTRATION ng/mLAmphetamines 1000Methamphetamines 1000Cocaine 300Opiate 300Phencyc lidine 25Cannabinoid 50Barbiturates 300Benzodiazepine 300Methadone 300[facility] Wyqkksfwbvbx3131-16-65 11:17:00* Test Item Value Reference Range Interpretation Comments Urine Urobilinogen (test code = 26748-0) 0.2 0.2-1 [facility] HospitalUrine Awkuarlsn4673-48-10 11:17:00* Test Item Value Reference Range Interpretation Comments Urine Bilirubin (test code = 1978-6) NEGATIVE NEGATIVE [facility] HospitalUrine Ovxrl5001-96-86 11:17:00* Test Item Value Reference Range Interpretation Comments Urine Blood (test code = 01101-6) NEGATIVE NEGATIVE [facility] HospitalUrine HLV9102-03-77 11:17:00* Test Item Value Reference Range Interpretation Comments Urine WBC (test code = 5821-4) 0-5 0-5 [facility] HospitalUrine CCA5882-61-82 11:17:00* Test Item Value Reference Range Interpretation Comments Urine RBC (test code = 31592-0) NONE 0-5 [facility] HospitalUrine Ykjbqfgn8377-93-57 11:17:00* Test Item Value Reference Range Interpretation Comments Urine Bacteria (test code = 97841-7) FEW NONE [facility] HospitalUrine Epithelial Asqfd4362-41-50 11:17:00 * Test Item Value Reference Range Interpretation Comments Urine Epithelial Cells (test code = 88612-8) MODERATE NONE [facility] HospitalUrine Spmaf7046-28-00 11:17:00* Test Item Value Reference Range Interpretation Comments Urine Mucus (test code = 8247-9) FEW RARE H [facility] HospitalUrine Opiates Mxllvl9192-34-09 11:17:00* Test Item Value Reference Range Interpretation Comments Urine Opiates Screen (test code = 15188-1) NEGATIVE NEGATIVE [facility] Barbiturates Jbfaxh1681-05-13 11:17:00* Test Item Value Reference Range Interpretation Comments Urine Barbiturates Screen (test code = 314398396) NEGATIVE NEGA TIVE [facility] HospitalUrine Phencyclidine Kbaklz9800-89-71 11:17:00* Test Item Value Reference Range Interpretation Comments Urine Phencyclidine Screen (test code = 95677-5) NEGATIVE NEGAT MARY [facility] HospitalUrine Amphetamines Hbwdwr2667-43-14 11:17:00* Test Item Value Reference Range Interpretation Comments Urine Amphetamines Screen (test code = 89804-7) NEGATIVE NEGATI VE [facility] HospitalUrine Methamphetamines Jbarta3047-72-98 11:17:00* Test Item Value Reference Range Interpretation Comments Urine Methamphetamines Screen (test code = Urine Metha mphetamines Screen) NEGATIVE NEGATIVE [facility] HospitalUrine Benzodiazepines Kubibu4606-52-46 11:17:00* Test Item Value Reference Range Interpretation Comments Urine Benzodiazepines Screen (test code = 37625-3) NEGATIVE NEG ATIVE [facility] HospitalUrine Cocaine Lanzdp6832-26-10 11:17:00* Test Item Value Reference Range Interpretation Comments Urine Cocaine Screen (test code = 3398-5) NEGATIVE NEGATIVE [facility] HospitalUrine Cannabinoids Jlxhlh2416-44-77 11:17:00* Test Item Value Reference Range Interpretation Comments Urine Cannabinoids Screen (test code = 68956-1) NEGATIVE NEGATI VE THESE RESULTS ARE FOR MEDICAL TREATMENT ONLYTHIS REPORT CONTAINS UNCONFIR MED SCREENING RESULTS*POSITIVE RESULTS WILL BE CONFIRMED BY REFERENCE LAB UPON R EQUEST CUT-OFFDRUG CLASS CONCENTRATION ng/mLAmphetamines 1000Methamphetamines 1000Cocaine 300Opiate 300Phencyc lidine 25Cannabinoid 50Barbiturates 300Benzodiazepine 300Methadone 300[facility] Xzang2698-07-98 11:17:00* Test Item Value Reference Range Interpretation Comments Urine Mucus (test code = 8247-9) FEW RARE H [facility] HospitalUrine Opiates Izlbij8189-65-03 11:17:00* Test Item Value Reference Range Interpretation Comments Urine Opiates Screen (test code = 71786-1) NEGATIVE NEGATIVE [facility] HospitalUrine Barbiturates Xabfhb3824-43-47 11:17:00* Test Item Value Reference Range Interpretation Comments Urine Barbiturates Screen (test code = 827694834) NEGATIVE NEGA TIVE [facility] HospitalUrine Phencyclidine Sonxut9396-48-53 11:17:00* Test Item Value Reference Range Interpretation Comments Urine Phencyclidine Screen (test code = 08512-3) NEGATIVE NEGAT MARY [facility] HospitalUrine Amphetamines Pozlzc9803-71-93 11:17:00* Test Item Value Reference Range Interpretation Comments Urine Amphetamines Screen (test code = 81077-9) NEGATIVE NEGATI VE [facility] HospitalUrine Methamphetamines Uomyly2024-32-20 11:17:00* Test Item Value Reference Range Interpretation Comments Urine Methamphetamines Screen (test code = Urine Metha mphetamines Screen) NEGATIVE NEGATIVE [facility] HospitalUrine Benzodiazepines Drpmai5383-96-77 11:17:00* Test Item Value Reference Range Interpretation Comments Urine Benzodiazepines Screen (test code = 08180-2) NEGATIVE NEG ATIVE [facility] HospitalUrine Cocaine Moaoma6327-52-44 11:17:00* Test Item Value Reference Range Interpretation Comments Urine Cocaine Screen (test code = 3398-5) NEGATIVE NEGATIVE [facility] HospitalUrine Cannabinoids Ekjbsb5457-83-58 11:17:00* Test Item Value Reference Range Interpretation Comments Urine Cannabinoids Screen (test code = 81315-7) NEGATIVE NEGATI VE THESE RESULTS ARE FOR MEDICAL TREATMENT ONLYTHIS REPORT CONTAINS UNCONFIR MED SCREENING RESULTS*POSITIVE RESULTS WILL BE CONFIRMED BY REFERENCE LAB UPON R EQUEST CUT-OFFDRUG CLASS CONCENTRATION ng/mLAmphetamines 1000Methamphetamines 1000Cocaine 300Opiate 300Phencyc lidine 25Cannabinoid 50Barbiturates 300Benzodiazepine 300Methadone 300[facility] Znozf1919-10-92 11:17:00* Test Item Value Reference Range Interpretation Comments Urine Mucus (test code = 8247-9) FEW RARE H [facility] HospitalUrine Opiates Spluae9983-20-58 11:17:00* Test Item Value Reference Range Interpretation Comments Urine Opiates Screen (test code = 82316-5) NEGATIVE NEGATIVE [facility] HospitalU[facility] Barbiturates Bupzxp8789-14-25 11:17:00* Test Item Value Reference Range Interpretation Comments Urine Barbiturates Screen (test code = 416441169) NEGATIVE NEGA TIVE [facility] HospitalU[facility] Phencyclidine Lzvbie1675-64-23 11:17:00* Test Item Value Reference Range Interpretation Comments Urine Phencyclidine Screen (test code = 67397-8) NEGATIVE NEGAT MARY [facility] HospitalUrine Amphetamines Begrie9991-00-00 11:17:00* Test Item Value Reference Range Interpretation Comments Urine Amphetamines Screen (test code = 84673-3) NEGATIVE NEGATI VE [facility] HospitalUrine Methamphetamines Ifcxxt2866-22-32 11:17:00* Test Item Value Reference Range Interpretation Comments Urine Methamphetamines Screen (test code = Urine Metha mphetamines Screen) NEGATIVE NEGATIVE [facility] HospitalUrine Benzodiazepines Xcgztk3278-47-22 11:17:00* Test Item Value Reference Range Interpretation Comments Urine Benzodiazepines Screen (test code = 45885-6) NEGATIVE NEG ATIVE [facility] Cocaine Yoxinj9529-93-18 11:17:00* Test Item Value Reference Range Interpretation Comments Urine Cocaine Screen (test code = 3398-5) NEGATIVE NEGATIVE [facility] HospitalUrine Cannabinoids Gdnqvj4848-57-21 11:17:00* Test Item Value Reference Range Interpretation Comments Urine Cannabinoids Screen (test code = 71039-7) NEGATIVE NEGATI VE THESE RESULTS ARE FOR MEDICAL TREATMENT ONLYTHIS REPORT CONTAINS UNCONFIR MED SCREENING RESULTS*POSITIVE RESULTS WILL BE CONFIRMED BY REFERENCE LAB UPON R EQUEST CUT-OFFDRUG CLASS CONCENTRATION ng/mLAmphetamines 1000Methamphetamines 1000Cocaine 300Opiate 300Phencyc lidine 25Cannabinoid 50Barbiturates 300Benzodiazepine 300Methadone 300[facility] Rwcgu7619-94-74 11:17:00* Test Item Value Reference Range Interpretation Comments Urine Mucus (test code = 8247-9) FEW RARE H [facility] HospitalUrine Opiates Pgmlqs8090-20-66 11:17:00* Test Item Value Reference Range Interpretation Comments Urine Opiates Screen (test code = 42156-0) NEGATIVE NEGATIVE [facility] HospitalUrine Barbiturates Sztdsy5947-62-31 11:17:00* Test Item Value Reference Range Interpretation Comments Urine Barbiturates Screen (test code = 684142695) NEGATIVE NEGA TIVE [facility] HospitalUrine Phencyclidine Ubikeq0271-80-65 11:17:00* Test Item Value Reference Range Interpretation Comments Urine Phencyclidine Screen (test code = 33006-3) NEGATIVE NEGAT MARY [facility] HospitalUrine Amphetamines Vezgep0842-60-50 11:17:00* Test Item Value Reference Range Interpretation Comments Urine Amphetamines Screen (test code = 05161-8) NEGATIVE NEGATI VE [facility] HospitalUrine Methamphetamines Nudzoc9192-93-91 11:17:00* Test Item Value Reference Range Interpretation Comments Urine Methamphetamines Screen (test code = Urine Metha mphetamines Screen) NEGATIVE NEGATIVE [facility] HospitalUrine Benzodiazepines Mellkn8749-27-74 11:17:00* Test Item Value Reference Range Interpretation Comments Urine Benzodiazepines Screen (test code = 95666-9) NEGATIVE NEG ATIVE [facility] HospitalUrine Cocaine Yiyrfy5010-72-74 11:17:00* Test Item Value Reference Range Interpretation Comments Urine Cocaine Screen (test code = 3398-5) NEGATIVE NEGATIVE [facility] HospitalUrine Cannabinoids Pzuzxm1846-88-93 11:17:00* Test Item Value Reference Range Interpretation Comments Urine Cannabinoids Screen (test code = 77023-4) NEGATIVE NEGATI VE THESE RESULTS ARE FOR MEDICAL TREATMENT ONLYTHIS REPORT CONTAINS UNCONFIR MED SCREENING RESULTS*POSITIVE RESULTS WILL BE CONFIRMED BY REFERENCE LAB UPON R EQUEST CUT-OFFDRUG CLASS CONCENTRATION ng/mLAmphetamines 1000Methamphetamines 1000Cocaine 300Opiate 300Phencyc lidine 25Cannabinoid 50Barbiturates 300Benzodiazepine 300Methadone 300[facility] HospitalUrine Dexoo9863-88-61 11:17:00* Test Item Value Reference Range Interpretation Comments Urine Mucus (test code = 8247-9) FEW RARE H [facility] HospitalB-Type Natriuretic Plluoiv8924-05-05 11:08:00* Test Item Value Reference Range Interpretation Comments B-Type Natriuretic Peptide (test code = 38388-3) 29.0 0-100 [facility] Fonhc2910-79-55 11:03:00* Test Item Value Reference Range Interpretation Comments Sodium Level (test code = 2951-2) 140 136-145 [facility] HospitalPotassium Mrjyw7735-07-76 11:03:00* Test Item Value Reference Range Interpretation Comments Potassium Level (test code = 2823-3) 3.7 3.5-5.1 [facility] HospitalChloride Dflga5514-74-36 11:03:00* Test Item Value Reference Range Interpretation Comments Chloride Level (test code = 2075-0) 100 98-107 [facility] HospitalCarbon Dioxide Zsrew8360-58-60 11:03:00* Test Item Value Reference Range Interpretation Comments Carbon Dioxide Level (test code = 2028-9) 28 22-29 [facility] HospitalAnion Kwr8342-43-90 11:03:00* Test Item Value Reference Range Interpretation Comments Anion Gap (test code = 78474-5) 15.7 8-16 [facility] HospitalBlood Urea Piymtkrd1229-11-87 11:03:00* Test Item Value Reference Range Interpretation Comments Blood Urea Nitrogen (test code = 3094-0) 39 7-26 H [facility] HospitalCreatinine2018-07-15 11:03:00* Test Item Value Reference Range Interpretation Comments Creatinine (test code = 2160-0) 1.29 0.57-1.11 H [facility] HospitalBUN/Creatinine Kwtax1933-57-62 11:03:00* Test Item Value Reference Range Interpretation Comments BUN/Creatinine Ratio (test code = 3097-3) 30 6-25 H [facility] HospitalEstimat Glomerular Filtration Rate 2018-02-04 11:03:00* Test Item Value Reference Range Interpretation Comments Estimat Glomerular Filtration Rate (test code = 93151-3) 42 >60 L Ranges were taken from the National Kidney Disease Education Program and the [facility] Foundation literature.Reference ranges:60 or greater: Wfdlea62-07 ( for 3 consecutive months): Chronic kidney disease 15 or less: Kidney failureCH[facility] TexasGlucose Jymfy6346-28-04 11:03:00* Test Item Value Reference Range Interpretation Comments Glucose Level (test code = OFM4181) 155 74-118 H [facility] HospitalCalcium Aapgd7984-75-72 11:03:00* Test Item Value Reference Range Interpretation Comments Calcium Level (test code = 63563-6) 9.0 8.4-10.2 [facility] HospitalMagnesium Hldnr2005-71-49 11:03:00* Test Item Value Reference Range Interpretation Comments Magnesium Level (test code = 84416-6) 1.7 1.3-2.1 [facility] HospitalTotal Cnoozvzys4480-99-01 11:03:00* Test Item Value Reference Range Interpretation Comments Total Bilirubin (test code = 1975-2) 0.4 0.2-1.2 [facility] HospitalAspartate Amino Transf (AST/SGOT) 2018-02-04 11:03:00* Test Item Value Reference Range Interpretation Comments Aspartate Amino Transf (AST/SGOT) (test code = Aspartate Amino Transf (AST/SGOT)) 15 5-34 [facility] HospitalAlanine Aminotransferase (ALT/SGPT) 2018-02-04 11:03:00* Test Item Value Reference Range Interpretation Comments Alanine Aminotransferase (ALT/SGPT) (test code = 1742-6) 20 0-55 [facility] HospitalTotal Irrxvto3143-77-51 11:03:00* Test Item Value Reference Range Interpretation Comments Total Protein (test code = 2885-2) 6.7 6.5-8.1 [facility] HospitalAlbumin2018-07-15 11:03:00* Test Item Value Reference Range Interpretation Comments Albumin (test code = 1751-7) 3.3 3.5-5.0 L [facility] HospitalGlobulin2018-07-15 11:03:00* Test Item Value Reference Range Interpretation Comments Globulin (test code = 90029-3) 3.4 2.3-3.5 [facility] HospitalAlbumin/Globulin Rmswo1245-74-03 11:03:00 * Test Item Value Reference Range Interpretation Comments Albumin/Globulin Ratio (test code = 1759-0) 1.0 0.8-2.0 [facility] HospitalAlkaline Xdnkbnrourf9982-28-03 11:03:00* Test Item Value Reference Range Interpretation Comments Alkaline Phosphatase (test code = 6768-6) 63 40-150 [facility] HospitalAmylase Ecphe5806-85-04 11:03:00* Test Item Value Reference Range Interpretation Comments Amylase Level (test code = 1798-8) 30 25-125 [facility] HospitalLipase2018-07-15 11:03:00* Test Item Value Reference Range Interpretation Comments Lipase (test code = 3040-3) 16 8-78 [facility] HospitalMagnesium Fmesw7753-21-54 11:03:00* Test Item Value Reference Range Interpretation Comments Magnesium Level (test code = 39256-3) 1.7 1.3-2.1 [facility] HospitalAmylase Ewkyt0061-02-39 11:03:00* Test Item Value Reference Range Interpretation Comments Amylase Level (test code = 1798-8) 30 25-125 [facility] HospitalLipase2018-07-15 11:03:00* Test Item Value Reference Range Interpretation Comments Lipase (test code = 3040-3) 16 [facility]2018-07-15 11:03:00* Test Item Value Reference Range Interpretation Comments Magnesium Level (test code = 97835-0) 1.7 1.3-2.1 [facility] HospitalAmylase Dudam9405-51-57 11:03:00* Test Item Value Reference Range Interpretation Comments Amylase Level (test code = 1798-8) 30 25-125 [facility]2018-07-15 11:03:00* Test Item Value Reference Range Interpretation Comments Lipase (test code = 3040-3) [facility]2018-07-15 11:03:00* Test Item Value Reference Range Interpretation Comments Magnesium Level (test code = 40751-5) 1.7 1.3-2.1 [facility] HospitalAmylase Amnfr9906-30-77 11:03:00* Test Item Value Reference Range Interpretation Comments Amylase Level (test code = 1798-8) 30 25-125 [facility]2018-07-15 11:03:00* Test Item Value Reference Range Interpretation Comments Lipase (test code = 3040-3) 16 [facility]2018-07-15 11:03:00* Test Item Value Reference Range Interpretation Comments Magnesium Level (test code = 96822-4) 1.7 1.3-2.1 [facility] HospitalAmylase Dlrir4337-29-62 11:03:00* Test Item Value Reference Range Interpretation Comments Amylase Level (test code = 1798-8) 30 25-125 [facility]2018-07-15 11:03:00* Test Item Value Reference Range Interpretation Comments Lipase (test code = 3040-3) 16 [facility] HospitalB-Type Natriuretic Ttspveu4699-29-86 23:54:00* Test Item Value Reference Range Interpretation Comments B-Type Natriuretic Peptide (test code = 26356-9) 38.5 0-100 [facility] HospitalCreatine Kinase GY4648-84-48 23:54:00* Test Item Value Reference Range Interpretation Comments Creatine Kinase MB (test code = 18586-9) 1.10 0-5.0 [facility] HospitalTroponin S3441-84-38 23:54:00* Test Item Value Reference Range Interpretation Comments Troponin I (test code = BCM7907) -0.001 0-0.300 [facility] HospitalUrine YYC4387-41-20 23:42:00* Test Item Value Reference Range Interpretation Comments Urine WBC (test code = 5821-4) 0-5 0-5 [facility] HospitalUrine PMD8153-02-02 23:42:00* Test Item Value Reference Range Interpretation Comments Urine RBC (test code = 55672-8) NONE 0-5 [facility] HospitalUrine Vyqsghxq8916-44-16 23:42:00* Test Item Value Reference Range Interpretation Comments Urine Bacteria (test code = 88693-0) RARE NONE [facility] HospitalUrine Epithelial Onwha7184-09-04 23:42:00 * Test Item Value Reference Range Interpretation Comments Urine Epithelial Cells (test code = 67172-8) RARE NONE [facility]odium Saaku8947-44-61 23:39:00* Test Item Value Reference Range Interpretation Comments Sodium Level (test code = 2951-2) 135 136-145 L [facility] HospitalPotassium Aizzd8517-97-03 23:39:00* Test Item Value Reference Range Interpretation Comments Potassium Level (test code = 2823-3) 4.3 3.5-5.1 [facility] HospitalChloride Zfdij4581-33-92 23:39:00* Test Item Value Reference Range Interpretation Comments Chloride Level (test code = 2075-0) 99 98-107 [facility] HospitalCarbon Dioxide Rlssv8178-37-33 23:39:00* Test Item Value Reference Range Interpretation Comments Carbon Dioxide Level (test code = 2028-9) 25 22-29 [facility] HospitalAnion Yno1874-10-31 23:39:00* Test Item Value Reference Range Interpretation Comments Anion Gap (test code = 14770-5) 15.3 8-16 [facility] HospitalBlood Urea Rxdyulot6633-54-91 23:39:00* Test Item Value Reference Range Interpretation Comments Blood Urea Nitrogen (test code = 3094-0) 33 7-26 H [facility] HospitalCreatinine2018-07-11 23:39:00* Test Item Value Reference Range Interpretation Comments Creatinine (test code = 2160-0) 1.41 0.57-1.11 H [facility] HospitalBUN/Creatinine Zvbak1626-59-88 23:39:00* Test Item Value Reference Range Interpretation Comments BUN/Creatinine Ratio (test code = 3097-3) 23 6-25 [facility] HospitalEstimat Glomerular Filtration Rate 2018-01-31 23:39:00* Test Item Value Reference Range Interpretation Comments Estimat Glomerular Filtration Rate (test code = 59025-1) 38 >60 L Ranges were taken from the National Kidney Disease Education Program and the [facility] Kid[facility] Foundation literature.Reference ranges:60 or greater: Cbnfdc51-39 ( for 3 consecutive months): Chronic kidney disease 15 or less: Kidney failureHarris Health System Ben Ta[facility] HospitalGlucose Jekkc4320-90-79 23:39:00* Test Item Value Reference Range Interpretation Comments Glucose Level (test code = KZM7239) 622 74-118 Results called to Ann Rodriguez at 2338 on 01/31/18 by Andreea Olivier. [place]. [facility] HospitalCalcium Ptzcf8509-51-24 23:39:00* Test Item Value Reference Range Interpretation Comments Calcium Level (test code = 19512-7) 9.3 8.4-10.2 [facility] HospitalMagnesium Ljblo0836-93-06 23:39:00* Test Item Value Reference Range Interpretation Comments Magnesium Level (test code = 39668-0) 2.0 1.3-2.1 [facility] HospitalTotal Xbbxdximf7557-31-41 23:39:00* Test Item Value Reference Range Interpretation Comments Total Bilirubin (test code = 1975-2) 0.3 0.2-1.2 [facility] HospitalAspartate Amino Transf (AST/SGOT) 2018-01-31 23:39:00* Test Item Value Reference Range Interpretation Comments Aspartate Amino Transf (AST/SGOT) (test code = Aspartate Amino Transf (AST/SGOT)) 10 5-34 [facility] HospitalAlanine Aminotransferase (ALT/SGPT) 2018-01-31 23:39:00* Test Item Value Reference Range Interpretation Comments Alanine Aminotransferase (ALT/SGPT) (test code = 1742-6) 18 0-55 [facility] HospitalTotal Dtckfaf6026-50-22 23:39:00* Test Item Value Reference Range Interpretation Comments Total Protein (test code = 2885-2) 6.7 6.5-8.1 [facility] HospitalAlbumin2018-07-11 23:39:00* Test Item Value Reference Range Interpretation Comments Albumin (test code = 1751-7) 3.4 3.5-5.0 L [facility] HospitalGlobulin2018-07-11 23:39:00* Test Item Value Reference Range Interpretation Comments Globulin (test code = 71471-4) 3.3 2.3-3.5 [facility] HospitalAlbumin/Globulin Cpkvx3395-75-49 23:39:00 * Test Item Value Reference Range Interpretation Comments Albumin/Globulin Ratio (test code = 1759-0) 1.0 0.8-2.0 [facility] HospitalAlkaline Pdzgexjbgda1781-93-31 23:39:00* Test Item Value Reference Range Interpretation Comments Alkaline Phosphatase (test code = 6768-6) 63 40-150 [facility] HospitalCreatine Nawjgg6641-75-81 23:39:00* Test Item Value Reference Range Interpretation Comments Creatine Kinase (test code = 2157-6) 40 29-168 [facility] HospitalProthrombin Ugza8023-79-94 23:34:00* Test Item Value Reference Range Interpretation Comments Prothrombin Time (test code = 5902-2) 13.5 11.9-14.5 [facility] HospitalProthromb Time International Ratio 2018-01-31 23:34:00* Test Item Value Reference Range Interpretation Comments Prothromb Time International Ratio (test code = 6301-6) 1.11 Oral Anticoagulant Therapy INR Values:1. Low Intensity Therapy 1.5 - 2.02 . Moderate Intensity Therapy 2.0 - 3.03. High Intensity Therapy(1) 2.5 - 3. 54. High Intensity Therapy(2) 3.0 - 4.05. Panic Value INR > 5.0 [facility] HospitalActivated Partial Thromboplast Time 2018-01-31 23:34:00* Test Item Value Reference Range Interpretation Comments Activated Partial Thromboplast Time (test code = 42059-3) 23.4 23.8-35.5 L [facility] HospitalUrine Diygi2807-74-49 23:34:00* Test Item Value Reference Range Interpretation Comments Urine Color (test code = 5778-6) YELLOW YELLOW [facility] HospitalUrine Itptecm0141-44-54 23:34:00* Test Item Value Reference Range Interpretation Comments Urine Clarity (test code = 74945-7) CLEAR CLEAR [facility] HospitalUrine Specific Hdyazga4552-55-60 23:34:00 * Test Item Value Reference Range Interpretation Comments Urine Specific [place] (test code = 5811-5) 1.010 1.010-1.02 5 [facility] HospitalUrine zH1113-00-79 23:34:00* Test Item Value Reference Range Interpretation Comments Urine pH (test code = 00294-9) 6 5-7 [facility] HospitalUrine Leukocyte Yqjzpxba5643-99-42 23:34:00* Test Item Value Reference Range Interpretation Comments Urine Leukocyte Esterase (test code = 5799-2) NEGATIVE NEGATIVE [facility] HospitalUrine Wsytxkx3209-95-88 23:34:00* Test Item Value Reference Range Interpretation Comments Urine Nitrite (test code = 55715-5) NEGATIVE NEGATIVE [facility] HospitalUrine Yqawstf5534-30-65 23:34:00* Test Item Value Reference Range Interpretation Comments Urine Protein (test code = 5804-0) NEGATIVE NEGATIVE [facility] HospitalUrine Glucose (UA)2018-01-31 23:34:00* Test Item Value Reference Range Interpretation Comments Urine Glucose (UA) (test code = 2349-9) 3+ NEGATIVE H [facility] HospitalUrine Jkmnwkr8452-20-18 23:34:00* Test Item Value Reference Range Interpretation Comments Urine Ketones (test code = 00658-2) NEGATIVE NEGATIVE [facility] HospitalUrine Yokvnctdkawg2534-90-13 23:34:00* Test Item Value Reference Range Interpretation Comments Urine Urobilinogen (test code = 40175-5) 0.2 0.2-1 [facility] HospitalUrine Crwlwyvyi1280-54-99 23:34:00* Test Item Value Reference Range Interpretation Comments Urine Bilirubin (test code = 1978-6) NEGATIVE NEGATIVE [facility] HospitalUrine Nrdtk2427-84-67 23:34:00* Test Item Value Reference Range Interpretation Comments Urine Blood (test code = 60985-6) NEGATIVE NEGATIVE [facility] HospitalProthrombin Sojz0251-10-63 23:34:00* Test Item Value Reference Range Interpretation Comments Prothrombin Time (test code = 5902-2) 13.5 11.9-14.5 [facility] HospitalProthromb Time International Ratio 2018-01-31 23:34:00* Test Item Value Reference Range Interpretation Comments Prothromb Time International Ratio (test code = 6301-6) 1.11 Oral Anticoagulant Therapy INR Values:1. Low Intensity Therapy 1.5 - 2.02 . Moderate Intensity Therapy 2.0 - 3.03. High Intensity Therapy(1) 2.5 - 3. 54. High Intensity Therapy(2) 3.0 - 4.05. Panic Value INR > 5.0 [facility] HospitalActivated Partial Thromboplast Time 2018-01-31 23:34:00* Test Item Value Reference Range Interpretation Comments Activated Partial Thromboplast Time (test code = 77103-5) 23.4 23.8-35.5 L [facility] HospitalProthrombin Jacp0466-46-77 23:34:00* Test Item Value Reference Range Interpretation Comments Prothrombin Time (test code = 5902-2) 13.5 11.9-14.5 [facility] HospitalProthromb Time International Ratio 2018-01-31 23:34:00* Test Item Value Reference Range Interpretation Comments Prothromb Time International Ratio (test code = 6301-6) 1.11 Oral Anticoagulant Therapy INR Values:1. Low Intensity Therapy 1.5 - 2.02 . Moderate Intensity Therapy 2.0 - 3.03. High Intensity Therapy(1) 2.5 - 3. 54. High Intensity Therapy(2) 3.0 - 4.05. Panic Value INR > 5.0 [facility] HospitalActivated Partial Thromboplast Time 2018-01-31 23:34:00* Test Item Value Reference Range Interpretation Comments Activated Partial Thromboplast Time (test code = 95788-6) 23.4 23.8-35.5 L [facility] HospitalProthrombin Dzfq9663-20-24 23:34:00* Test Item Value Reference Range Interpretation Comments Prothrombin Time (test code = 5902-2) 13.5 11.9-14.5 [facility] HospitalProthromb Time International Ratio 2018-01-31 23:34:00* Test Item Value Reference Range Interpretation Comments Prothromb Time International Ratio (test code = 6301-6) 1.11 Oral Anticoagulant Therapy INR Values:1. Low Intensity Therapy 1.5 - 2.02 . Moderate Intensity Therapy 2.0 - 3.03. High Intensity Therapy(1) 2.5 - 3. 54. High Intensity Therapy(2) 3.0 - 4.05. Panic Value INR > 5.0 [facility] HospitalActivated Partial Thromboplast Time 2018-01-31 23:34:00* Test Item Value Reference Range Interpretation Comments Activated Partial Thromboplast Time (test code = 81169-9) 23.4 23.8-35.5 L [facility] HospitalCHEST SINGLE (PORTABLE)2018-01-31 23:25:00 [place] [address] Patient Name: KALYANI TALAVERA MR #: [id number] : 1955 Age/Sex: 62/F Req #: [id number] Adm Physician: Ordered by: FLO TOLBERT MD Report #: [id number] Location: ER Room/Bed: Procedure: [id number] DX/CHEST SINGLE (PORTABLE) E xam Date: 01/31/18 [...] COPY TO: FLO TOLBERT MD White Blood Mrhdr3919-38-86 23:20:00* Test Item Value Reference Range Interpretation Comments White Blood Count (test code = 6690-2) 5.55 4.8-10.8 [facility] HospitalRed Blood Uzfmm2977-81-86 23:20:00* Test Item Value Reference Range Interpretation Comments Red Blood Count (test code = 789-8) 4.21 3.6-5.1 [facility] HospitalHemoglobin2018-07-11 23:20:00* Test Item Value Reference Range Interpretation Comments Hemoglobin (test code = 52959-1) 10.6 12.0-16.0 L [facility] HospitalHematocrit2018-07-11 23:20:00* Test Item Value Reference Range Interpretation Comments Hematocrit (test code = 4544-3) 34.8 34.2-44.1 [facility] HospitalMean Corpuscular Hvzwdp6567-29-18 23:20:00* Test Item Value Reference Range Interpretation Comments Mean Corpuscular Volume (test code = 787-2) 82.7 81-99 [facility] HospitalMean Corpuscular Uumlgwgnlx4026-62-70 23:20:00* Test Item Value Reference Range Interpretation Comments Mean Corpuscular Hemoglobin (test code = 785-6) 25.2 28-32 L [facility] HospitalMean Corpuscular Hemoglobin Concent 2018-01-31 23:20:00* Test Item Value Reference Range Interpretation Comments Mean Corpuscular Hemoglobin Concent (test code = 786-4) 30.5 31-35 L [facility] HospitalRed Cell Distribution Gqpeq1989-83-73 23:20:00* Test Item Value Reference Range Interpretation Comments Red Cell Distribution Width (test code = 07516-5) 15.5 11.7 -14.4 H [facility] HospitalPlatelet Vzyky7797-68-27 23:20:00* Test Item Value Reference Range Interpretation Comments Platelet Count (test code = 777-3) 176 140-360 [facility] HospitalNeutrophils (%) (Auto)2018-01-31 23:20:00 * Test Item Value Reference Range Interpretation Comments Neutrophils (%) (Auto) (test code = 75938-2) 68.7 38.7-80.0 [facility] HospitalLymphocytes (%) (Auto)2018-01-31 23:20:00 * Test Item Value Reference Range Interpretation Comments Lymphocytes (%) (Auto) (test code = 736-9) 21.8 18.0-39.1 [facility] HospitalMonocytes (%) (Auto)2018-01-31 23:20:00* Test Item Value Reference Range Interpretation Comments Monocytes (%) (Auto) (test code = 5905-5) 5.0 4.4-11.3 [facility] HospitalEosinophils (%) (Auto)2018-01-31 23:20:00 * Test Item Value Reference Range Interpretation Comments Eosinophils (%) (Auto) (test code = 713-8) 2.5 0.0-6.0 [facility] HospitalBasophils (%) (Auto)2018-01-31 23:20:00* Test Item Value Reference Range Interpretation Comments Basophils (%) (Auto) (test code = 706-2) 0.9 0.0-1.0 [facility] HospitalIM GRANULOCYTES %2018-01-31 23:20:00* Test Item Value Reference Range Interpretation Comments IM GRANULOCYTES % (test code = IM GRANULOCYTES %) 1.1 0.0- 1.0 H [facility] HospitalNeutrophils # (Auto)2018-01-31 23:20:00* Test Item Value Reference Range Interpretation Comments Neutrophils # (Auto) (test code = 751-8) 3.8 2.1-6.9 [facility] HospitalLymphocytes # (Auto)2018-01-31 23:20:00* Test Item Value Reference Range Interpretation Comments Lymphocytes # (Auto) (test code = 38463-5) 1.2 1.0-3.2 [facility] HospitalMonocytes # (Auto)2018-01-31 23:20:00* Test Item Value Reference Range Interpretation Comments Monocytes # (Auto) (test code = 742-7) 0.3 0.2-0.8 [facility] HospitalEosinophils # (Auto)2018-01-31 23:20:00* Test Item Value Reference Range Interpretation Comments Eosinophils # (Auto) (test code = 711-2) 0.1 0.0-0.4 [facility] HospitalBasophils # (Auto)2018-01-31 23:20:00* Test Item Value Reference Range Interpretation Comments Basophils # (Auto) (test code = 704-7) 0.1 0.0-0.1 [facility] HospitalAbsolute Immature Granulocyte (auto 2018-01-31 23:20:00* Test Item Value Reference Range Interpretation Comments Absolute Immature Granulocyte (auto (joseph t code = Absolute Immature Granulocyte (auto) 0.06 0-0.1 [facility] Leevnan6103-56-24 18:58:00* Test Item Value Reference Range Interpretation Comments Bedside Glucose (test code = 36855-1) 293 70-120 H Meter ID: [id number] [facility] Glucose 2017-12-28 14:17:00* Test Item Value Reference Range Interpretation Comments Bedside Glucose (test code = 03722-9) 330 70-120 H Meter ID: [id number] [facility] GDCKV9075-41-50 10:49:00 [place] [address] Patient Name: KALYANI TALAVERA MR #: [id number] : 1955 Age/Sex: 62/F Req #: [id number] Adm Physician: BENJAMIN MASTERS MD Ordered by: LUCILLE OLIVO MD Report #: [id number] Location: [facility] Room/Bed: [place] [address] Procedure: DX/KNEE RIGHT THREE VIEWS Exam Date: 12/27/17 [...] Level (test code = 2951-2) 137 136-145 [facility] HospitalPotassium Krrxq1388-11-17 09:24:00* Test Item Value Reference Range Interpretation Comments Potassium Level (test code = 2823-3) 4.5 3.5-5.1 [facility] HospitalChloride Cehun5816-37-37 09:24:00* Test Item Value Reference Range Interpretation Comments Chloride Level (test code = 2075-0) 102 98-107 [facility] HospitalCarbon Dioxide Ancok5895-88-98 09:24:00* Test Item Value Reference Range Interpretation Comments Carbon Dioxide Level (test code = 2028-9) 28 22-29 [facility] HospitalAnion Tqp8977-11-77 09:24:00* Test Item Value Reference Range Interpretation Comments Anion Gap (test code = 68266-5) 11.5 8-16 [facility] HospitalBlood Urea Syganefz1680-07-12 09:24:00* Test Item Value Reference Range Interpretation Comments Blood Urea Nitrogen (test code = 3094-0) 21 7-26 [facility] HospitalCreatinine2018-06-04 09:24:00* Test Item Value Reference Range Interpretation Comments Creatinine (test code = 2160-0) 1.09 0.57-1.11 [facility] HospitalBUN/Creatinine Yfynw6260-57-67 09:24:00* Test Item Value Reference Range Interpretation Comments BUN/Creatinine Ratio (test code = 3097-3) 19 6-25 [facility] HospitalEstimat Glomerular Filtration Rate 2017-12-25 09:24:00* Test Item Value Reference Range Interpretation Comments Estimat Glomerular Filtration Rate (test code = 11893-4) 51 >60 L Ranges were taken from the National Kidney Disease Education Program and the [facility] literature.Reference ranges:60 or greater: Rdwoly02-56 ( for 3 consecutive months): Chronic kidney disease 15 or less: Kidney failureHarris Health System Ben [facility] HospitalGlucose Qfhpw3584-22-15 09:24:00* Test Item Value Reference Range Interpretation Comments Glucose Level (test code = WXN7726) 458 74-118 HH Results called to RANCHO CONTI RN at 0924 on 12/25/17 by Audi Manriquez. RB [place].Thi s test has been rerun and double checked for accuracy.[facility] HospitalCalcium Lktcb8825-86-37 09:24:00* Test Item Value Reference Range Interpretation Comments Calcium Level (test code = 61632-6) 9.0 8.4-10.2 [facility] HospitalCreatine Kinase FI3961-54-73 16:42:00* Test Item Value Reference Range Interpretation Comments Creatine Kinase MB (test code = 46887-4) 2.60 0-5.0 [facility] HospitalTroponin A2313-17-52 16:42:00* Test Item Value Reference Range Interpretation Comments Troponin I (test code = FVY4540) -0.001 0-0.300 [facility] HospitalCreatine Ejolul4916-36-96 16:36:00* Test Item Value Reference Range Interpretation Comments Creatine Kinase (test code = 2157-6) 60 29-168 [facility] HospitalTotal Ssyvnkzlr8660-04-14 08:48:00* Test Item Value Reference Range Interpretation Comments Total Bilirubin (test code = 1975-2) 0.3 0.2-1.2 [facility] HospitalAspartate Amino Transf (AST/SGOT) 2017-12-24 08:48:00* Test Item Value Reference Range Interpretation Comments Aspartate Amino Transf (AST/SGOT) (test code = Aspartate Amino Transf (AST/SGOT)) 23 5-34 [facility] HospitalAlanine Aminotransferase (ALT/SGPT) 2017-12-24 08:48:00* Test Item Value Reference Range Interpretation Comments Alanine Aminotransferase (ALT/SGPT) (test code = 1742-6) 45 0-55 [facility] HospitalTotal Zcffwun4642-99-66 08:48:00* Test Item Value Reference Range Interpretation Comments Total Protein (test code = 2885-2) 6.3 6.5-8.1 L [facility] HospitalAlbumin2018-06-03 08:48:00* Test Item Value Reference Range Interpretation Comments Albumin (test code = 1751-7) 3.2 3.5-5.0 L [facility] HospitalGlobulin2018-06-03 08:48:00* Test Item Value Reference Range Interpretation Comments Globulin (test code = 50652-5) 3.1 2.3-3.5 [facility] HospitalAlbumin/Globulin Wzntk2009-78-41 08:48:00 * Test Item Value Reference Range Interpretation Comments Albumin/Globulin Ratio (test code = 1759-0) 1.0 0.8-2.0 [facility] HospitalAlkaline Eigtdxctqmf6216-90-90 08:48:00* Test Item Value Reference Range Interpretation Comments Alkaline Phosphatase (test code = 6768-6) 71 40-150 [facility] HospitalTriglycerides Pkylo7364-69-49 08:48:00* Test Item Value Reference Range Interpretation Comments Triglycerides Level (test code = 2571-8) 218 0-149 H [facility] HospitalCholesterol Rvohf0849-49-60 08:48:00* Test Item Value Reference Range Interpretation Comments Cholesterol Level (test code = 2093-3) 168 0-199 Less than 200 mg/dL Low Bsmb862 - 239 mg/dL Borderline Ineb814 m g/dl and greater High Risk [facility] HospitalLDL Ihixnrbzkgy2360-02-96 08:48:00* Test Item Value Reference Range Interpretation Comments LDL Cholesterol (test code = 2089-1) 96 60-130 [facility] HospitalHDL Xqydmhtmzek7790-06-52 08:48:00* Test Item Value Reference Range Interpretation Comments HDL Cholesterol (test code = 2085-9) 28 40-60 L [facility] HospitalCholesterol/HDL Youyl6475-65-84 08:48:00 * Test Item Value Reference Range Interpretation Comments Cholesterol/HDL Ratio (test code = 9830-1) 6.0 3.0-3.6 H [facility] HospitalTriglycerides Ickax2707-95-98 08:48:00* Test Item Value Reference Range Interpretation Comments Triglycerides Level (test code = 2571-8) 218 0-149 H [facility] HospitalCholesterol Uwzfe6566-75-71 08:48:00* Test Item Value Reference Range Interpretation Comments Cholesterol Level (test code = 2093-3) 168 0-199 Less than 200 mg/dL Low Ifsy135 - 239 mg/dL Borderline Jdgx280 m g/dl and greater High Risk [facility] HospitalLDL Vjewaofqtwf8910-40-83 08:48:00* Test Item Value Reference Range Interpretation Comments LDL Cholesterol (test code = 2089-1) 96 60-[address] [facility]L Fnemivxdlgg4732-76-95 08:48:00* Test Item Value Reference Range Interpretation Comments HDL Cholesterol (test code = 2085-9) 28 40-60 L [facility] HospitalCholesterol/HDL Uigug9315-77-94 08:48:00 * Test Item Value Reference Range Interpretation Comments Cholesterol/HDL Ratio (test code = 9830-1) 6.0 3.0-3.6 H [facility] HospitalWhite Blood Oxpis8849-28-27 08:25:00* Test Item Value Reference Range Interpretation Comments White Blood Count (test code = 6690-2) 3.93 4.8-10.8 L [facility] HospitalRed Blood Atccz4271-83-49 08:25:00* Test Item Value Reference Range Interpretation Comments Red Blood Count (test code = 789-8) 4.06 3.6-5.1 [facility] HospitalHemoglobin2018-06-03 08:25:00* Test Item Value Reference Range Interpretation Comments Hemoglobin (test code = 96276-0) 10.2 12.0-16.0 L [facility] HospitalHematocrit2018-06-03 08:25:00* Test Item Value Reference Range Interpretation Comments Hematocrit (test code = 4544-3) 34.0 34.2-44.1 L [facility] HospitalMean Corpuscular Qabzah1375-49-29 08:25:00* Test Item Value Reference Range Interpretation Comments Mean Corpuscular Volume (test code = 787-2) 83.7 81-99 [facility] HospitalMean Corpuscular Knclfziycx1414-32-72 08:25:00* Test Item Value Reference Range Interpretation Comments Mean Corpuscular Hemoglobin (test code = 785-6) 25.1 28-32 L [facility] HospitalMean Corpuscular Hemoglobin Concent 2017-12-24 08:25:00* Test Item Value Reference Range Interpretation Comments Mean Corpuscular Hemoglobin Concent (test code = 786-4) 30.0 31-35 L [facility] HospitalRed Cell Distribution Yzzbv6977-34-14 08:25:00* Test Item Value Reference Range Interpretation Comments Red Cell Distribution Width (test code = 31940-8) 15.2 11.7 -14.4 H [facility] HospitalPlatelet Pjkzu2768-19-82 08:25:00* Test Item Value Reference Range Interpretation Comments Platelet Count (test code = 777-3) 169 140-360 [facility] HospitalNeutrophils (%) (Auto)2017-12-24 08:25:00 * Test Item Value Reference Range Interpretation Comments Neutrophils (%) (Auto) (test code = 09659-1) 59.0 38.7-80.0 [facility] HospitalLymphocytes (%) (Auto)2017-12-24 08:25:00 * Test Item Value Reference Range Interpretation Comments Lymphocytes (%) (Auto) (test code = 736-9) 27.5 18.0-39.1 [facility] HospitalMonocytes (%) (Auto)2017-12-24 08:25:00* Test Item Value Reference Range Interpretation Comments Monocytes (%) (Auto) (test code = 5905-5) 6.6 4.4-11.3 [facility] HospitalEosinophils (%) (Auto)2017-12-24 08:25:00 * Test Item Value Reference Range Interpretation Comments Eosinophils (%) (Auto) (test code = 713-8) 4.8 0.0-6.0 [facility] HospitalBasophils (%) (Auto)2017-12-24 08:25:00* Test Item Value Reference Range Interpretation Comments Basophils (%) (Auto) (test code = 706-2) 1.3 0.0-1.0 H [facility] HospitalIM GRANULOCYTES %2017-12-24 08:25:00* Test Item Value Reference Range Interpretation Comments IM GRANULOCYTES % (test code = IM GRANULOCYTES %) 0.8 0.0- 1.0 [facility] HospitalNeutrophils # (Auto)2017-12-24 08:25:00* Test Item Value Reference Range Interpretation Comments Neutrophils # (Auto) (test code = 751-8) 2.3 2.1-6.9 [facility] HospitalLymphocytes # (Auto)2017-12-24 08:25:00* Test Item Value Reference Range Interpretation Comments Lymphocytes # (Auto) (test code = 24687-7) 1.1 1.0-3.2 [facility] HospitalMonocytes # (Auto)2017-12-24 08:25:00* Test Item Value Reference Range Interpretation Comments Monocytes # (Auto) (test code = 742-7) 0.3 0.2-0.8 [facility] HospitalEosinophils # (Auto)2017-12-24 08:25:00* Test Item Value Reference Range Interpretation Comments Eosinophils # (Auto) (test code = 711-2) 0.2 0.0-0.4 [facility] HospitalBasophils # (Auto)2017-12-24 08:25:00* Test Item Value Reference Range Interpretation Comments Basophils # (Auto) (test code = 704-7) 0.1 0.0-0.1 [facility] HospitalAbsolute Immature Granulocyte (auto 2017-12-24 08:25:00* Test Item Value Reference Range Interpretation Comments Absolute Immature Granulocyte (auto (joseph t code = Absolute Immature Granulocyte (auto) 0.03 0-0.1 [facility] HospitalB-Type Natriuretic Kvixujz9409-39-92 23:03:00* Test Item Value Reference Range Interpretation Comments B-Type Natriuretic Peptide (test code = 71825-1) 125.0 0-100 H [facility] HospitalThyroid Stimulating Hormone (TSH) 2017-12-23 22:39:00* Test Item Value Reference Range Interpretation Comments Thyroid Stimulating Hormone (TSH) (test code = 77175-9) 0.865 0.350-4.940 [facility] HospitalThyroid Stimulating Hormone (TSH) 2017-12-23 22:39:00* Test Item Value Reference Range Interpretation Comments Thyroid Stimulating Hormone (TSH) (test code = 33537-1) 0.865 0.350-4.940 [facility] HospitalThyroid Stimulating Hormone (TSH) 2017-12-23 22:39:00* Test Item Value Reference Range Interpretation Comments Thyroid Stimulating Hormone (TSH) (test code = 12482-6) 0.865 0.350-4.940 [facility] HospitalThyroid Stimulating Hormone (TSH) 2017-12-23 22:39:00* Test Item Value Reference Range Interpretation Comments Thyroid Stimulating Hormone (TSH) (test code = 32623-4) 0.865 0.350-4.940 [facility] HospitalThyroid Stimulating Hormone (TSH) 2017-12-23 22:39:00* Test Item Value Reference Range Interpretation Comments Thyroid Stimulating Hormone (TSH) (test code = 26131-2) 0.865 0.350-4.940 [facility] HospitalThyroid Stimulating Hormone (TSH) 2017-12-23 22:39:00* Test Item Value Reference Range Interpretation Comments Thyroid Stimulating Hormone (TSH) (test code = 47902-6) 0.865 0.350-4.940 [facility] HospitalThyroid Stimulating Hormone (TSH) 2017-12-23 22:39:00* Test Item Value Reference Range Interpretation Comments Thyroid Stimulating Hormone (TSH) (test code = 03050-0) 0.865 0.350-4.940 [facility] HospitalUrine PPJ8161-54-89 22:23:00* Test Item Value Reference Range Interpretation Comments Urine WBC (test code = 5821-4) 0-5 0-5 [facility] HospitalUrine XCM5698-98-39 22:23:00* Test Item Value Reference Range Interpretation Comments Urine RBC (test code = 24620-1) 0-5 0-5 [facility] HospitalUrine Txucfptz9297-67-59 22:23:00* Test Item Value Reference Range Interpretation Comments Urine Bacteria (test code = 26280-0) RARE NONE [facility] HospitalUrine Epithelial Mdsow9155-12-30 22:23:00 * Test Item Value Reference Range Interpretation Comments Urine Epithelial Cells (test code = 96440-9) RARE NONE [facility] HospitalUrine Cppqk6152-22-77 22:04:00* Test Item Value Reference Range Interpretation Comments Urine Color (test code = 5778-6) YELLOW YELLOW [facility] HospitalUrine Gpxhwnw3708-16-54 22:04:00* Test Item Value Reference Range Interpretation Comments Urine Clarity (test code = 84889-7) CLEAR CLEAR [facility] HospitalUrine Specific Ximvtos3707-61-64 22:04:00 * Test Item Value Reference Range Interpretation Comments Urine Specific [place] (test code = 5811-5) 1.010 1.010-1.02 5 [facility] HospitalUrine iV7457-07-75 22:04:00* Test Item Value Reference Range Interpretation Comments Urine pH (test code = 01321-3) 6 5-7 [facility] HospitalUrine Leukocyte Thqapvou7581-79-59 22:04:00* Test Item Value Reference Range Interpretation Comments Urine Leukocyte Esterase (test code = 5799-2) NEGATIVE NEGATIVE [facility] HospitalUrine Swhstmr0876-93-04 22:04:00* Test Item Value Reference Range Interpretation Comments Urine Nitrite (test code = 77344-3) NEGATIVE NEGATIVE [facility] HospitalUrine Iilnsen0122-25-05 22:04:00* Test Item Value Reference Range Interpretation Comments Urine Protein (test code = 5804-0) NEGATIVE NEGATIVE [facility] HospitalUrine Glucose (UA)2017-12-23 22:04:00* Test Item Value Reference Range Interpretation Comments Urine Glucose (UA) (test code = 2349-9) 3+ NEGATIVE H [facility] HospitalUrine Dhthrlb0986-47-36 22:04:00* Test Item Value Reference Range Interpretation Comments Urine Ketones (test code = 59805-0) NEGATIVE NEGATIVE [facility] Eetpigclfmul6838-25-48 22:04:00* Test Item Value Reference Range Interpretation Comments Urine Urobilinogen (test code = 29580-2) 0.2 0.2-1 [facility] Pcuqcwfby3734-40-97 22:04:00* Test Item Value Reference Range Interpretation Comments Urine Bilirubin (test code = 1978-6) NEGATIVE NEGATIVE [facility] Ctosb3718-06-11 22:04:00* Test Item Value Reference Range Interpretation Comments Urine Blood (test code = 42099-0) NEGATIVE NEGATIVE [facility] HospitalMagnesium Bttsh4748-53-42 22:03:00* Test Item Value Reference Range Interpretation Comments Magnesium Level (test code = 82944-9) 1.8 1.3-2.1 [facility] HospitalProthrombin Olbj2951-40-28 21:58:00* Test Item Value Reference Range Interpretation Comments Prothrombin Time (test code = 5902-2) 13.6 11.9-14.5 [facility] HospitalProthromb Time International Ratio 2017-12-23 21:58:00* Test Item Value Reference Range Interpretation Comments Prothromb Time International Ratio (test code = 6301-6) 1.13 Oral Anticoagulant Therapy INR Values:1. Low Intensity Therapy 1.5 - 2.02 . Moderate Intensity Therapy 2.0 - 3.03. High Intensity Therapy(1) 2.5 - 3. 54. High Intensity Therapy(2) 3.0 - 4.05. Panic Value INR > 5.0 [facility] HospitalActivated Partial Thromboplast Time 2017-12-23 21:58:00* Test Item Value Reference Range Interpretation Comments Activated Partial Thromboplast Time (test code = 22080-6) 23.8 23.8-35.5 [facility] Zotqfcs7257-17-49 00:04:00* Test Item Value Reference Range Interpretation Comments Blood Culture (test code = 42018770) NO GROWTH AFTER 5 DAYS, FINAL REPORT [facility]2018-03-27 00:04:00* Test Item Value Reference Range Interpretation Comments Blood Culture (test code = 53109455) NO GROWTH AFTER 5 DAYS, FINAL REPORT [facility]2018-03-27 00:04:00* Test Item Value Reference Range Interpretation Comments Blood Culture (test code = 65264318) NO GROWTH AFTER 5 DAYS, FINAL REPORT [facility]2018-03-27 00:04:00* Test Item Value Reference Range Interpretation Comments Blood Culture (test code = 24050786) NO GROWTH AFTER 5 DAYS, FINAL REPORT [facility]2018-03-27 00:04:00* Test Item Value Reference Range Interpretation Comments Blood Culture (test code = 63710500) NO GROWTH AFTER 5 DAYS, FINAL REPORT [facility]2018-03-27 00:04:00* Test Item Value Reference Range Interpretation Comments Blood Culture (test code = 10630223) NO GROWTH AFTER 5 DAYS, FINAL REPORT [facility]2018-03-27 00:04:00* Test Item Value Reference Range Interpretation Comments Blood Culture (test code = 00290812) NO GROWTH AFTER 5 DAYS, FINAL REPORT [facility]2018-03-27 00:04:00* Test Item Value Reference Range Interpretation Comments Blood Culture (test code = 37126909) NO GROWTH AFTER 5 DAYS, FINAL REPORT [facility]2018-03-27 00:04:00* Test Item Value Reference Range Interpretation Comments Blood Culture (test code = 02196140) NO GROWTH AFTER 5 DAYS, [facility] Cudqv1016-99-05 00:58:00* Test Item Value Reference Range Interpretation Comments Sodium Level (test code = 2951-2) 137 136-145 [facility] HospitalPotassium Idqoj6948-53-67 00:58:00* Test Item Value Reference Range Interpretation Comments Potassium Level (test code = 2823-3) 4.1 3.5-5.1 [facility] HospitalChloride Xbemc7772-39-83 00:58:00* Test Item Value Reference Range Interpretation Comments Chloride Level (test code = 2075-0) 105 98-107 [facility] HospitalCarbon Dioxide Wvlcr7791-04-91 00:58:00* Test Item Value Reference Range Interpretation Comments Carbon Dioxide Level (test code = 2028-9) 21 22-29 L [facility] HospitalAnion Sbr9668-43-71 00:58:00* Test Item Value Reference Range Interpretation Comments Anion Gap (test code = 38781-2) 15.1 8-16 [facility] HospitalBlood Urea Xkgjwgwu6521-38-65 00:58:00* Test Item Value Reference Range Interpretation Comments Blood Urea Nitrogen (test code = 3094-0) 37 7-26 H [facility] HospitalCreatinine2018-03-22 00:58:00* Test Item Value Reference Range Interpretation Comments Creatinine (test code = 2160-0) 1.54 0.57-1.11 H [facility] HospitalBUN/Creatinine Qvjsb9311-31-35 00:58:00* Test Item Value Reference Range Interpretation Comments BUN/Creatinine Ratio (test code = 3097-3) 24 6-25 [facility] HospitalEstimat Glomerular Filtration Rate 2017-10-12 00:58:00* Test Item Value Reference Range Interpretation Comments Estimat Glomerular Filtration Rate (test code = 82785-2) 34 >60 L Ranges were taken from the National Kidney Disease Education Program and the [facility] literature.Reference ranges:60 or greater: Pjgvej05-99 ( for 3 consecutive months): Chronic kidney disease 15 or less: Kidney failureHarris Health System Ben [facility] HospitalGlucose Nuyqg1195-37-35 00:58:00* Test Item Value Reference Range Interpretation Comments Glucose Level (test code = JED6916) 286 74-118 H [facility] HospitalCalcium Dmxhp0817-11-54 00:58:00* Test Item Value Reference Range Interpretation Comments Calcium Level (test code = 92407-3) 8.7 8.4-10.2 [facility] HospitalMagnesium Olgtg9464-95-78 00:58:00* Test Item Value Reference Range Interpretation Comments Magnesium Level (test code = 34239-6) 1.6 1.3-2.1 [facility] HospitalTotal Exkcvumqo4731-37-64 00:58:00* Test Item Value Reference Range Interpretation Comments Total Bilirubin (test code = 1975-2) 0.3 0.2-1.2 [facility] HospitalAspartate Amino Transf (AST/SGOT) 2017-10-12 00:58:00* Test Item Value Reference Range Interpretation Comments Aspartate Amino Transf (AST/SGOT) (test code = Aspartate Amino Transf (AST/SGOT)) 22 5-34 [facility] HospitalAlanine Aminotransferase (ALT/SGPT) 2017-10-12 00:58:00* Test Item Value Reference Range Interpretation Comments Alanine Aminotransferase (ALT/SGPT) (test code = 1742-6) 24 0-55 [facility] HospitalTotal Biradaw5108-68-73 00:58:00* Test Item Value Reference Range Interpretation Comments Total Protein (test code = 2885-2) 6.5 6.5-8.1 [facility] HospitalAlbumin2018-03-22 00:58:00* Test Item Value Reference Range Interpretation Comments Albumin (test code = 1751-7) 3.2 3.5-5.0 L [facility] HospitalGlobulin2018-03-22 00:58:00* Test Item Value Reference Range Interpretation Comments Globulin (test code = 51711-9) 3.3 2.3-3.5 [facility] HospitalAlbumin/Globulin Pyevq2535-89-05 00:58:00 * Test Item Value Reference Range Interpretation Comments Albumin/Globulin Ratio (test code = 1759-0) 1.0 0.8-2.0 [facility] HospitalAlkaline Qtvpyetwsbh2123-53-21 00:58:00* Test Item Value Reference Range Interpretation Comments Alkaline Phosphatase (test code = 6768-6) 69 40-150 [facility] HospitalB-Type Natriuretic Xbqsyux7232-02-44 00:58:00* Test Item Value Reference Range Interpretation Comments B-Type Natriuretic Peptide (test code = 53009-0) 46.4 0-100 [facility] HospitalCreatine Mqlizd0329-79-14 00:58:00* Test Item Value Reference Range Interpretation Comments Creatine Kinase (test code = 2157-6) 86 29-168 [facility] HospitalCreatine Kinase VE4383-25-26 00:58:00* Test Item Value Reference Range Interpretation Comments Creatine Kinase MB (test code = 42096-3) 3.00 0-5.0 [facility] HospitalTroponin [id number] 00:58:00* Test Item Value Reference Range Interpretation Comments Troponin I (test code = [id number]) -0.001 0-0.300 [facility] Jpsqg2667-41-46 00:58:00* Test Item Value Reference Range Interpretation Comments Sodium Level (test code = 2951-2) 137 136-145 [facility] HospitalPotassium Covil3635-24-39 00:58:00* Test Item Value Reference Range Interpretation Comments Potassium Level (test code = 2823-3) 4.1 3.5-5.1 [facility] HospitalChloride Wxdax9416-23-64 00:58:00* Test Item Value Reference Range Interpretation Comments Chloride Level (test code = 2075-0) 105 98-107 [facility] HospitalCarbon Dioxide Rwnle7511-60-20 00:58:00* Test Item Value Reference Range Interpretation Comments Carbon Dioxide Level (test code = 2028-9) 21 22-29 L [facility] HospitalAnion Jfr2791-47-10 00:58:00* Test Item Value Reference Range Interpretation Comments Anion Gap (test code = 17795-7) 15.1 8-16 [facility] HospitalBlood Urea Zemnozoi4773-64-34 00:58:00* Test Item Value Reference Range Interpretation Comments Blood Urea Nitrogen (test code = 3094-0) 37 7-26 H [facility] HospitalCreatinine2018-03-22 00:58:00* Test Item Value Reference Range Interpretation Comments Creatinine (test code = 2160-0) 1.54 0.57-1.11 H [facility] HospitalBUN/Creatinine Owsge2594-20-86 00:58:00* Test Item Value Reference Range Interpretation Comments BUN/Creatinine Ratio (test code = 3097-3) 24 6-25 [facility] HospitalEstimat Glomerular Filtration Rate 2017-10-12 00:58:00* Test Item Value Reference Range Interpretation Comments Estimat Glomerular Filtration Rate (test code = 47256-2) 34 >60 L Ranges were taken from the National Kidney Disease Education Program and the [facility] Kidney Foundation literature.Reference ranges:60 or greater: Fvqljv78-30 ( for 3 consecutive months): Chronic kidney disease 15 or less: Kidney failureHarris [facility] System [facility] HospitalGlucose Mqkok5276-86-63 00:58:00* Test Item Value Reference Range Interpretation Comments Glucose Level (test code = XCA7945) 286 74-118 H [facility] HospitalCalcium Grdug8183-28-28 00:58:00* Test Item Value Reference Range Interpretation Comments Calcium Level (test code = 81187-3) 8.7 8.4-10.2 [facility] HospitalMagnesium Dvfxt9762-29-21 00:58:00* Test Item Value Reference Range Interpretation Comments Magnesium Level (test code = 58362-9) 1.6 1.3-2.1 [facility] HospitalTotal Zmqmxlfib6054-64-85 00:58:00* Test Item Value Reference Range Interpretation Comments Total Bilirubin (test code = 1975-2) 0.3 0.2-1.2 [facility] HospitalAspartate Amino Transf (AST/SGOT) 2017-10-12 00:58:00* Test Item Value Reference Range Interpretation Comments Aspartate Amino Transf (AST/SGOT) (test code = Aspartate Amino Transf (AST/SGOT)) 22 5-34 [facility] HospitalAlanine Aminotransferase (ALT/SGPT) 2017-10-12 00:58:00* Test Item Value Reference Range Interpretation Comments Alanine Aminotransferase (ALT/SGPT) (test code = 1742-6) 24 0-55 [facility] HospitalTotal Swwpzkt5743-46-61 00:58:00* Test Item Value Reference Range Interpretation Comments Total Protein (test code = 2885-2) 6.5 6.5-8.1 [facility] HospitalAlbumin2018-03-22 00:58:00* Test Item Value Reference Range Interpretation Comments Albumin (test code = 1751-7) 3.2 3.5-5.0 L [facility] HospitalGlobulin2018-03-22 00:58:00* Test Item Value Reference Range Interpretation Comments Globulin (test code = 76816-9) 3.3 2.3-3.5 [facility] HospitalAlbumin/Globulin Nfntg2536-43-06 00:58:00 * Test Item Value Reference Range Interpretation Comments Albumin/Globulin Ratio (test code = 1759-0) 1.0 0.8-2.0 [facility] HospitalAlkaline Okejzydnhnm1699-81-75 00:58:00* Test Item Value Reference Range Interpretation Comments Alkaline Phosphatase (test code = 6768-6) 69 40-150 [facility] HospitalB-Type Natriuretic Mnwnldn7018-19-27 00:58:00* Test Item Value Reference Range Interpretation Comments B-Type Natriuretic Peptide (test code = 26704-7) 46.4 0-100 [facility] HospitalCreatine Kabgbf9544-95-03 00:58:00* Test Item Value Reference Range Interpretation Comments Creatine Kinase (test code = 2157-6) 86 29-168 [facility] HospitalCreatine Kinase GI3803-13-21 00:58:00* Test Item Value Reference Range Interpretation Comments Creatine Kinase MB (test code = 80876-7) 3.00 0-5.0 [facility] HospitalTroponin A1728-21-79 00:58:00* Test Item Value Reference Range Interpretation Comments Troponin I (test code = LOA3409) -0.001 0-0.300 [facility] Rrzfa0820-70-69 00:58:00* Test Item Value Reference Range Interpretation Comments Sodium Level (test code = 2951-2) 137 136-145 [facility] HospitalPotassium Bwhjp7465-04-95 00:58:00* Test Item Value Reference Range Interpretation Comments Potassium Level (test code = 2823-3) 4.1 3.5-5.1 [facility] HospitalChloride Cdauy9517-86-91 00:58:00* Test Item Value Reference Range Interpretation Comments Chloride Level (test code = 2075-0) 105 98-107 [facility] HospitalCarbon Dioxide Lksvt8460-45-22 00:58:00* Test Item Value Reference Range Interpretation Comments Carbon Dioxide Level (test code = 2028-9) 21 22-29 L [facility] HospitalAnion Cxy0740-93-63 00:58:00* Test Item Value Reference Range Interpretation Comments Anion Gap (test code = 08748-0) 15.1 8-16 [facility] HospitalBlood Urea Dgaiqmlk0089-55-99 00:58:00* Test Item Value Reference Range Interpretation Comments Blood Urea Nitrogen (test code = 3094-0) 37 7-26 H [facility] HospitalCreatinine2018-03-22 00:58:00* Test Item Value Reference Range Interpretation Comments Creatinine (test code = 2160-0) 1.54 0.57-1.11 H [facility] HospitalBUN/Creatinine Jxtzh4643-38-31 00:58:00* Test Item Value Reference Range Interpretation Comments BUN/Creatinine Ratio (test code = 3097-3) 24 6-25 [facility] HospitalEstimat Glomerular Filtration Rate 2017-10-12 00:58:00* Test Item Value Reference Range Interpretation Comments Estimat Glomerular Filtration Rate (test code = 66593-2) 34 >60 L Ranges were taken from the National Kidney Disease Education Program and the [facility] Kidney Foundation literature.Reference ranges:60 or greater: Urrccg72-75 ( for 3 consecutive months): Chronic kidney disease 15 or less: Kidney failureHarris Health System Ben [facility] HospitalGlucose Vhbdb6741-07-43 00:58:00* Test Item Value Reference Range Interpretation Comments Glucose Level (test code = NVW7199) 286 74-118 H [facility] HospitalCalcium Pnbgf6909-06-28 00:58:00* Test Item Value Reference Range Interpretation Comments Calcium Level (test code = 79800-6) 8.7 8.4-10.2 [facility] HospitalMagnesium Fnuet7232-15-11 00:58:00* Test Item Value Reference Range Interpretation Comments Magnesium Level (test code = 98088-3) 1.6 1.3-2.1 [facility] HospitalTotal Cavoaoiku3278-85-73 00:58:00* Test Item Value Reference Range Interpretation Comments Total Bilirubin (test code = 1975-2) 0.3 0.2-1.2 [facility] HospitalAspartate Amino Transf (AST/SGOT) 2017-10-12 00:58:00* Test Item Value Reference Range Interpretation Comments Aspartate Amino Transf (AST/SGOT) (test code = Aspartate Amino Transf (AST/SGOT)) 22 5-34 [facility] HospitalAlanine Aminotransferase (ALT/SGPT) 2017-10-12 00:58:00* Test Item Value Reference Range Interpretation Comments Alanine Aminotransferase (ALT/SGPT) (test code = 1742-6) 24 0-55 [facility] HospitalTotal Eyzatmm3999-32-14 00:58:00* Test Item Value Reference Range Interpretation Comments Total Protein (test code = 2885-2) 6.5 6.5-8.1 [facility] HospitalAlbumin2018-03-22 00:58:00* Test Item Value Reference Range Interpretation Comments Albumin (test code = 1751-7) 3.2 3.5-5.0 L [facility] HospitalGlobulin2018-03-22 00:58:00* Test Item Value Reference Range Interpretation Comments Globulin (test code = 03494-6) 3.3 2.3-3.5 [facility] HospitalAlbumin/Globulin Hajpr6114-96-00 00:58:00 * Test Item Value Reference Range Interpretation Comments Albumin/Globulin Ratio (test code = 1759-0) 1.0 0.8-2.0 [facility] HospitalAlkaline Obcfrkmwghv2139-39-53 00:58:00* Test Item Value Reference Range Interpretation Comments Alkaline Phosphatase (test code = 6768-6) 69 40-150 [facility] HospitalB-Type Natriuretic Kqdqhzg9193-46-82 00:58:00* Test Item Value Reference Range Interpretation Comments B-Type Natriuretic Peptide (test code = 72209-0) 46.4 0-100 [facility] HospitalCreatine Zvcpaz6020-14-16 00:58:00* Test Item Value Reference Range Interpretation Comments Creatine Kinase (test code = 2157-6) 86 29-168 [facility] HospitalCreatine Kinase RM4597-34-93 00:58:00* Test Item Value Reference Range Interpretation Comments Creatine Kinase MB (test code = 33185-6) 3.00 0-5.0 [facility] HospitalTroponin G4289-72-00 00:58:00* Test Item Value Reference Range Interpretation Comments Troponin I (test code = YOI5117) -0.001 0-0.300 [facility] HospitalLactic Acid Mthxw9909-24-94 00:40:00* Test Item Value Reference Range Interpretation Comments Lactic Acid Level (test code = Lactic Acid Level) 14.6 4.5- 19.8 [facility] HospitalLactic Acid Nbiar0552-80-44 00:40:00* Test Item Value Reference Range Interpretation Comments Lactic Acid Level (test code = Lactic Acid Level) 14.6 4.5- 19.8 [facility] HospitalLactic Acid Jnuvp7402-81-82 00:40:00* Test Item Value Reference Range Interpretation Comments Lactic Acid Level (test code = Lactic Acid Level) 14.6 4.5- 19.8 [facility] HospitalLactic Acid Ihkqt5150-77-98 00:40:00* Test Item Value Reference Range Interpretation Comments Lactic Acid Level (test code = Lactic Acid Level) 14.6 4.5- 19.8 [facility] HospitalLactic Acid Hekky4134-91-70 00:40:00* Test Item Value Reference Range Interpretation Comments Lactic Acid Level (test code = Lactic Acid Level) 14.6 4.5- 19.8 [facility] HospitalLactic Acid Iumhu7039-74-64 00:40:00* Test Item Value Reference Range Interpretation Comments Lactic Acid Level (test code = Lactic Acid Level) 14.6 4.5- 19.8 [facility] HospitalLactic Acid Vrltj8558-25-90 00:40:00* Test Item Value Reference Range Interpretation Comments Lactic Acid Level (test code = Lactic Acid Level) 14.6 4.5- 19.8 [facility] HospitalLactic Acid Zkhnn6374-97-93 00:40:00* Test Item Value Reference Range Interpretation Comments Lactic Acid Level (test code = Lactic Acid Level) 14.6 4.5- 19.8 [facility] CLF0284-19-58 00:38:00* Test Item Value Reference Range Interpretation Comments Urine WBC (test code = 5821-4) 0-5 0-5 [facility] HospitalUrine CXW5596-76-39 00:38:00* Test Item Value Reference Range Interpretation Comments Urine RBC (test code = 13881-8) 0-5 0-5 [facility] HospitalUrine Scioomgt0002-04-08 00:38:00* Test Item Value Reference Range Interpretation Comments Urine Bacteria (test code = 28504-4) RARE NONE [facility] HospitalUrine Epithelial Yhpgo4497-26-42 00:38:00 * Test Item Value Reference Range Interpretation Comments Urine Epithelial Cells (test code = 13885-6) FEW NONE [facility] HospitalUrine ZNF6022-36-02 00:38:00* Test Item Value Reference Range Interpretation Comments Urine WBC (test code = 5821-4) 0-5 0-5 [facility] HospitalUrine DWT9518-99-67 00:38:00* Test Item Value Reference Range Interpretation Comments Urine RBC (test code = 14943-5) 0-5 0-5 [facility] HospitalUrine Ktownzla2652-58-62 00:38:00* Test Item Value Reference Range Interpretation Comments Urine Bacteria (test code = 90111-5) RARE NONE [facility] HospitalUrine Epithelial Rvjfc9507-74-95 00:38:00 * Test Item Value Reference Range Interpretation Comments Urine Epithelial Cells (test code = 21169-9) FEW NONE [facility] HospitalUrine HGB4381-14-16 00:38:00* Test Item Value Reference Range Interpretation Comments Urine WBC (test code = 5821-4) 0-5 0-5 [facility] HospitalUrine LCI1922-08-03 00:38:00* Test Item Value Reference Range Interpretation Comments Urine RBC (test code = 77386-1) 0-5 0-5 [facility] HospitalUrine Vplcscwb0072-77-25 00:38:00* Test Item Value Reference Range Interpretation Comments Urine Bacteria (test code = 77904-6) RARE NONE [facility] HospitalUrine Epithelial Hqbdn8868-32-82 00:38:00 * Test Item Value Reference Range Interpretation Comments Urine Epithelial Cells (test code = 55228-2) FEW NONE [facility] HospitalProthrombin Molv3425-37-35 00:31:00* Test Item Value Reference Range Interpretation Comments Prothrombin Time (test code = 5902-2) 12.5 11.9-14.5 [facility] HospitalProthromb Time International Ratio 2017-10-12 00:31:00* Test Item Value Reference Range Interpretation Comments Prothromb Time International Ratio (test code = 6301-6) 1.01 Oral Anticoagulant Therapy INR Values:1. Low Intensity Therapy 1.5 - 2.02 . Moderate Intensity Therapy 2.0 - 3.03. High Intensity Therapy(1) 2.5 - 3. 54. High Intensity Therapy(2) 3.0 - 4.05. Panic Value INR > 5.0 [facility] HospitalActivated Partial Thromboplast Time 2017-10-12 00:31:00* Test Item Value Reference Range Interpretation Comments Activated Partial Thromboplast Time (test code = 07486-3) 17.7 23.8-35.5 L [facility] HospitalProthrombin Qzgc7759-87-33 00:31:00* Test Item Value Reference Range Interpretation Comments Prothrombin Time (test code = 5902-2) 12.5 11.9-14.5 [facility] HospitalProthromb Time International Ratio 2017-10-12 00:31:00* Test Item Value Reference Range Interpretation Comments Prothromb Time International Ratio (test code = 6301-6) 1.01 Oral Anticoagulant Therapy INR Values:1. Low Intensity Therapy 1.5 - 2.02 . Moderate Intensity Therapy 2.0 - 3.03. High Intensity Therapy(1) 2.5 - 3. 54. High Intensity Therapy(2) 3.0 - 4.05. Panic Value INR > 5.0 [facility] HospitalActivated Partial Thromboplast Time 2017-10-12 00:31:00* Test Item Value Reference Range Interpretation Comments Activated Partial Thromboplast Time (test code = 52167-3) 17.7 23.8-35.5 L [facility] HospitalProthrombin Qcpv8211-64-10 00:31:00* Test Item Value Reference Range Interpretation Comments Prothrombin Time (test code = 5902-2) 12.5 11.9-14.5 [facility] HospitalProthromb Time International Ratio 2017-10-12 00:31:00* Test Item Value Reference Range Interpretation Comments Prothromb Time International Ratio (test code = 6301-6) 1.01 Oral Anticoagulant Therapy INR Values:1. Low Intensity Therapy 1.5 - 2.02 . Moderate Intensity Therapy 2.0 - 3.03. High Intensity Therapy(1) 2.5 - 3. 54. High Intensity Therapy(2) 3.0 - 4.05. Panic Value INR > 5.0 [facility] HospitalActivated Partial Thromboplast Time 2017-10-12 00:31:00* Test Item Value Reference Range Interpretation Comments Activated Partial Thromboplast Time (test code = 99244-8) 17.7 23.8-35.5 L [facility] HospitalWhite Blood Vuytm7964-09-55 00:19:00* Test Item Value Reference Range Interpretation Comments White Blood Count (test code = 6690-2) 6.20 4.8-10.8 [facility] HospitalRed Blood Vlgjd9493-65-72 00:19:00* Test Item Value Reference Range Interpretation Comments Red Blood Count (test code = 789-8) 4.11 3.6-5.1 [facility] HospitalHemoglobin2018-03-22 00:19:00* Test Item Value Reference Range Interpretation Comments Hemoglobin (test code = 39267-5) 10.7 12.0-16.0 L [facility] HospitalHematocrit2018-03-22 00:19:00* Test Item Value Reference Range Interpretation Comments Hematocrit (test code = 4544-3) 35.7 34.2-44.1 [facility] HospitalMean Corpuscular Bpipdv5590-94-52 00:19:00* Test Item Value Reference Range Interpretation Comments Mean Corpuscular Volume (test code = 787-2) 86.9 81-99 [facility] HospitalMean Corpuscular Vixxpplzrd9273-91-92 00:19:00* Test Item Value Reference Range Interpretation Comments Mean Corpuscular Hemoglobin (test code = 785-6) 26.0 28-32 L [facility] HospitalMean Corpuscular Hemoglobin Concent 2017-10-12 00:19:00* Test Item Value Reference Range Interpretation Comments Mean Corpuscular Hemoglobin Concent (test code = 786-4) 30.0 31-35 L [facility] HospitalRed Cell Distribution Lucjq2412-58-97 00:19:00* Test Item Value Reference Range Interpretation Comments Red Cell Distribution Width (test code = 32716-1) 15.1 11.7 -14.4 H [facility] HospitalPlatelet Jebfe8615-13-27 00:19:00* Test Item Value Reference Range Interpretation Comments Platelet Count (test code = 777-3) 186 140-360 [facility] HospitalNeutrophils (%) (Auto)2017-10-12 00:19:00 * Test Item Value Reference Range Interpretation Comments Neutrophils (%) (Auto) (test code = 22140-4) 65.3 38.7-80.0 [facility] HospitalLymphocytes (%) (Auto)2017-10-12 00:19:00 * Test Item Value Reference Range Interpretation Comments Lymphocytes (%) (Auto) (test code = 736-9) 24.5 18.0-39.1 [facility] HospitalMonocytes (%) (Auto)2017-10-12 00:19:00* Test Item Value Reference Range Interpretation Comments Monocytes (%) (Auto) (test code = 5905-5) 5.5 4.4-11.3 [facility] HospitalEosinophils (%) (Auto)2017-10-12 00:19:00 * Test Item Value Reference Range Interpretation Comments Eosinophils (%) (Auto) (test code = 713-8) 2.7 0.0-6.0 [facility] HospitalBasophils (%) (Auto)2017-10-12 00:19:00* Test Item Value Reference Range Interpretation Comments Basophils (%) (Auto) (test code = 706-2) 1.0 0.0-1.0 [facility] HospitalIM GRANULOCYTES %2017-10-12 00:19:00* Test Item Value Reference Range Interpretation Comments IM GRANULOCYTES % (test code = IM GRANULOCYTES %) 1.0 0.0- 1.0 [facility] HospitalNeutrophils # (Auto)2017-10-12 00:19:00* Test Item Value Reference Range Interpretation Comments Neutrophils # (Auto) (test code = 751-8) 4.1 2.1-6.9 [facility] HospitalLymphocytes # (Auto)2017-10-12 00:19:00* Test Item Value Reference Range Interpretation Comments Lymphocytes # (Auto) (test code = 57451-0) 1.5 1.0-3.2 [facility] HospitalMonocytes # (Auto)2017-10-12 00:19:00* Test Item Value Reference Range Interpretation Comments Monocytes # (Auto) (test code = 742-7) 0.3 0.2-0.8 [facility] HospitalEosinophils # (Auto)2017-10-12 00:19:00* Test Item Value Reference Range Interpretation Comments Eosinophils # (Auto) (test code = 711-2) 0.2 0.0-0.4 [facility] HospitalBasophils # (Auto)2017-10-12 00:19:00* Test Item Value Reference Range Interpretation Comments Basophils # (Auto) (test code = 704-7) 0.1 0.0-0.1 [facility] HospitalAbsolute Immature Granulocyte (auto 2017-10-12 00:19:00* Test Item Value Reference Range Interpretation Comments Absolute Immature Granulocyte (auto (joseph t code = Absolute Immature Granulocyte (auto) 0.06 0-0.1 [facility] HospitalUrine Mroxx5318-77-47 00:19:00* Test Item Value Reference Range Interpretation Comments Urine Color (test code = 5778-6) YELLOW YELLOW [facility] HospitalUrine Qyjuvyr6941-47-04 00:19:00* Test Item Value Reference Range Interpretation Comments Urine Clarity (test code = 91973-6) CLEAR CLEAR [facility] HospitalUrine Specific Odgesff2088-07-72 00:19:00 * Test Item Value Reference Range Interpretation Comments Urine Specific [place] (test code = 5811-5) 1.020 1.010-1.02 5 [facility] HospitalUrine nW8805-21-46 00:19:00* Test Item Value Reference Range Interpretation Comments Urine pH (test code = 38318-8) 5 5-7 [facility] HospitalUrine Leukocyte Toyacrpm9755-27-11 00:19:00* Test Item Value Reference Range Interpretation Comments Urine Leukocyte Esterase (test code = 5799-2) NEGATIVE NEGATIVE [facility] HospitalUrine Uflpbem0194-30-66 00:19:00* Test Item Value Reference Range Interpretation Comments Urine Nitrite (test code = 95285-7) NEGATIVE NEGATIVE [facility] HospitalUrine Nfbsvyc2977-59-39 00:19:00* Test Item Value Reference Range Interpretation Comments Urine Protein (test code = 5804-0) NEGATIVE NEGATIVE [facility] HospitalUrine Glucose (UA)2017-10-12 00:19:00* Test Item Value Reference Range Interpretation Comments Urine Glucose (UA) (test code = 2349-9) 3+ NEGATIVE H [facility] HospitalUrine Qkufhoh9013-86-14 00:19:00* Test Item Value Reference Range Interpretation Comments Urine Ketones (test code = 37273-4) NEGATIVE NEGATIVE [facility] HospitalUrine Ubpfxmqywwje3581-18-60 00:19:00* Test Item Value Reference Range Interpretation Comments Urine Urobilinogen (test code = 71011-2) 0.2 0.2-1 [facility] HospitalUrine Ntlvjdrnk1162-37-29 00:19:00* Test Item Value Reference Range Interpretation Comments Urine Bilirubin (test code = 1978-6) NEGATIVE NEGATIVE [facility] HospitalUrine Rksnh2214-58-11 00:19:00* Test Item Value Reference Range Interpretation Comments Urine Blood (test code = 61090-1) 1+ NEGATIVE H [facility] HospitalWhite Blood Kizop2300-65-74 00:19:00* Test Item Value Reference Range Interpretation Comments White Blood Count (test code = 6690-2) 6.20 4.8-10.8 [facility] HospitalRed Blood Hgwpt0008-10-30 00:19:00* Test Item Value Reference Range Interpretation Comments Red Blood Count (test code = 789-8) 4.11 3.6-5.1 [facility] HospitalHemoglobin2018-03-22 00:19:00* Test Item Value Reference Range Interpretation Comments Hemoglobin (test code = 37657-0) 10.7 12.0-16.0 L [facility] HospitalHematocrit2018-03-22 00:19:00* Test Item Value Reference Range Interpretation Comments Hematocrit (test code = 4544-3) 35.7 34.2-44.1 [facility] HospitalMean Corpuscular Dzjyph3522-07-65 00:19:00* Test Item Value Reference Range Interpretation Comments Mean Corpuscular Volume (test code = 787-2) 86.9 81-99 [facility] HospitalMean Corpuscular Zahrjnzbhx0470-14-92 00:19:00* Test Item Value Reference Range Interpretation Comments Mean Corpuscular Hemoglobin (test code = 785-6) 26.0 28-32 L [facility] HospitalMean Corpuscular Hemoglobin Concent 2017-10-12 00:19:00* Test Item Value Reference Range Interpretation Comments Mean Corpuscular Hemoglobin Concent (test code = 786-4) 30.0 31-35 L [facility] HospitalRed Cell Distribution Mnraq5291-73-07 00:19:00* Test Item Value Reference Range Interpretation Comments Red Cell Distribution Width (test code = 82792-0) 15.1 11.7 -14.4 H [facility] HospitalPlatelet Iysts2721-50-91 00:19:00* Test Item Value Reference Range Interpretation Comments Platelet Count (test code = 777-3) 186 140-360 [facility] HospitalNeutrophils (%) (Auto)2017-10-12 00:19:00 * Test Item Value Reference Range Interpretation Comments Neutrophils (%) (Auto) (test code = 47839-3) 65.3 38.7-80.0 [facility] HospitalLymphocytes (%) (Auto)2017-10-12 00:19:00 * Test Item Value Reference Range Interpretation Comments Lymphocytes (%) (Auto) (test code = 736-9) 24.5 18.0-39.1 [facility] HospitalMonocytes (%) (Auto)2017-10-12 00:19:00* Test Item Value Reference Range Interpretation Comments Monocytes (%) (Auto) (test code = 5905-5) 5.5 4.4-11.3 [facility] HospitalEosinophils (%) (Auto)2017-10-12 00:19:00 * Test Item Value Reference Range Interpretation Comments Eosinophils (%) (Auto) (test code = 713-8) 2.7 0.0-6.0 [facility] HospitalBasophils (%) (Auto)2017-10-12 00:19:00* Test Item Value Reference Range Interpretation Comments Basophils (%) (Auto) (test code = 706-2) 1.0 0.0-1.0 [facility] HospitalIM GRANULOCYTES %2017-10-12 00:19:00* Test Item Value Reference Range Interpretation Comments IM GRANULOCYTES % (test code = IM GRANULOCYTES %) 1.0 0.0- 1.0 [facility] HospitalNeutrophils # (Auto)2017-10-12 00:19:00* Test Item Value Reference Range Interpretation Comments Neutrophils # (Auto) (test code = 751-8) 4.1 2.1-6.9 [facility] HospitalLymphocytes # (Auto)2017-10-12 00:19:00* Test Item Value Reference Range Interpretation Comments Lymphocytes # (Auto) (test code = 88893-3) 1.5 1.0-3.2 [facility] HospitalMonocytes # (Auto)2017-10-12 00:19:00* Test Item Value Reference Range Interpretation Comments Monocytes # (Auto) (test code = 742-7) 0.3 0.2-0.8 [facility] HospitalEosinophils # (Auto)2017-10-12 00:19:00* Test Item Value Reference Range Interpretation Comments Eosinophils # (Auto) (test code = 711-2) 0.2 0.0-0.4 [facility] HospitalBasophils # (Auto)2017-10-12 00:19:00* Test Item Value Reference Range Interpretation Comments Basophils # (Auto) (test code = 704-7) 0.1 0.0-0.1 [facility] HospitalAbsolute Immature Granulocyte (auto 2017-10-12 00:19:00* Test Item Value Reference Range Interpretation Comments Absolute Immature Granulocyte (auto (joseph t code = Absolute Immature Granulocyte (auto) 0.06 0-0.1 [facility] HospitalUrine Ressr6747-08-34 00:19:00* Test Item Value Reference Range Interpretation Comments Urine Color (test code = 5778-6) YELLOW YELLOW [facility] HospitalUrine Ygqpwcm3732-36-26 00:19:00* Test Item Value Reference Range Interpretation Comments Urine Clarity (test code = 44769-3) CLEAR CLEAR [facility] HospitalUrine Specific Cmkqzky2962-02-16 00:19:00 * Test Item Value Reference Range Interpretation Comments Urine Specific [place] (test code = 5811-5) 1.020 1.010-1.02 5 [facility] HospitalUrine [id number] 00:19:00* Test Item Value Reference Range Interpretation Comments Urine pH (test code = 47189-3) 5 5-7 [facility] HospitalUrine Leukocyte Rqafdchm2300-68-33 00:19:00* Test Item Value Reference Range Interpretation Comments Urine Leukocyte Esterase (test code = 5799-2) NEGATIVE NEGATIVE [facility] HospitalUrine Vatufhr4940-50-31 00:19:00* Test Item Value Reference Range Interpretation Comments Urine Nitrite (test code = 95105-8) NEGATIVE NEGATIVE [facility] HospitalUrine Ujhjtns0430-89-57 00:19:00* Test Item Value Reference Range Interpretation Comments Urine Protein (test code = 5804-0) NEGATIVE NEGATIVE [facility] HospitalUrine Glucose (UA)2017-10-12 00:19:00* Test Item Value Reference Range Interpretation Comments Urine Glucose (UA) (test code = 2349-9) 3+ NEGATIVE H [facility] HospitalUrine Iedxvqk3329-92-27 00:19:00* Test Item Value Reference Range Interpretation Comments Urine Ketones (test code = 23649-0) NEGATIVE NEGATIVE [facility] HospitalUrine Hwuzbisvidnd7429-14-21 00:19:00* Test Item Value Reference Range Interpretation Comments Urine Urobilinogen (test code = 13396-3) 0.2 0.2-1 [facility] HospitalUrine Agetipabk1096-84-84 00:19:00* Test Item Value Reference Range Interpretation Comments Urine Bilirubin (test code = 1978-6) NEGATIVE NEGATIVE [facility] HospitalUrine Clblr2970-42-08 00:19:00* Test Item Value Reference Range Interpretation Comments Urine Blood (test code = 25633-7) 1+ NEGATIVE H [facility] HospitalWhite Blood Xxbcu0594-26-29 00:19:00* Test Item Value Reference Range Interpretation Comments White Blood Count (test code = 6690-2) 6.20 4.8-10.8 [facility] HospitalRed Blood Vwmbk7427-59-17 00:19:00* Test Item Value Reference Range Interpretation Comments Red Blood Count (test code = 789-8) 4.11 3.6-5.1 [facility] HospitalHemoglobin2018-03-22 00:19:00* Test Item Value Reference Range Interpretation Comments Hemoglobin (test code = 69093-0) 10.7 12.0-16.0 L [facility] HospitalHematocrit2018-03-22 00:19:00* Test Item Value Reference Range Interpretation Comments Hematocrit (test code = 4544-3) 35.7 34.2-44.1 [facility] HospitalMean Corpuscular Vrhugm8108-83-41 00:19:00* Test Item Value Reference Range Interpretation Comments Mean Corpuscular Volume (test code = 787-2) 86.9 81-99 [facility] HospitalMean Corpuscular Hkdyczivyi4726-13-00 00:19:00* Test Item Value Reference Range Interpretation Comments Mean Corpuscular Hemoglobin (test code = 785-6) 26.0 28-32 L [facility] HospitalMean Corpuscular Hemoglobin Concent 2017-10-12 00:19:00* Test Item Value Reference Range Interpretation Comments Mean Corpuscular Hemoglobin Concent (test code = 786-4) 30.0 31-35 L [facility] HospitalRed Cell Distribution Vhzxb9140-10-49 00:19:00* Test Item Value Reference Range Interpretation Comments Red Cell Distribution Width (test code = 13119-1) 15.1 11.7 -14.4 H [facility] HospitalPlatelet Gzius2650-55-63 00:19:00* Test Item Value Reference Range Interpretation Comments Platelet Count (test code = 777-3) 186 140-360 [facility] HospitalNeutrophils (%) (Auto)2017-10-12 00:19:00 * Test Item Value Reference Range Interpretation Comments Neutrophils (%) (Auto) (test code = 31781-9) 65.3 38.7-80.0 [facility] HospitalLymphocytes (%) (Auto)2017-10-12 00:19:00 * Test Item Value Reference Range Interpretation Comments Lymphocytes (%) (Auto) (test code = 736-9) 24.5 18.0-39.1 [facility] HospitalMonocytes (%) (Auto)2017-10-12 00:19:00* Test Item Value Reference Range Interpretation Comments Monocytes (%) (Auto) (test code = 5905-5) 5.5 4.4-11.3 [facility] HospitalEosinophils (%) (Auto)2017-10-12 00:19:00 * Test Item Value Reference Range Interpretation Comments Eosinophils (%) (Auto) (test code = 713-8) 2.7 0.0-6.0 [facility] HospitalBasophils (%) (Auto)2017-10-12 00:19:00* Test Item Value Reference Range Interpretation Comments Basophils (%) (Auto) (test code = 706-2) 1.0 0.0-1.0 [facility] HospitalIM GRANULOCYTES %2017-10-12 00:19:00* Test Item Value Reference Range Interpretation Comments IM GRANULOCYTES % (test code = IM GRANULOCYTES %) 1.0 0.0- 1.0 [facility] HospitalNeutrophils # (Auto)2017-10-12 00:19:00* Test Item Value Reference Range Interpretation Comments Neutrophils # (Auto) (test code = 751-8) 4.1 2.1-6.9 [facility] HospitalLymphocytes # (Auto)2017-10-12 00:19:00* Test Item Value Reference Range Interpretation Comments Lymphocytes # (Auto) (test code = 41145-6) 1.5 1.0-3.2 [facility] HospitalMonocytes # (Auto)2017-10-12 00:19:00* Test Item Value Reference Range Interpretation Comments Monocytes # (Auto) (test code = 742-7) 0.3 0.2-0.8 [facility] HospitalEosinophils # (Auto)2017-10-12 00:19:00* Test Item Value Reference Range Interpretation Comments Eosinophils # (Auto) (test code = 711-2) 0.2 0.0-0.4 [facility] HospitalBasophils # (Auto)2017-10-12 00:19:00* Test Item Value Reference Range Interpretation Comments Basophils # (Auto) (test code = 704-7) 0.1 0.0-0.1 [facility] HospitalAbsolute Immature Granulocyte (auto 2017-10-12 00:19:00* Test Item Value Reference Range Interpretation Comments Absolute Immature Granulocyte (auto (joseph t code = Absolute Immature Granulocyte (auto) 0.06 0-0.1 [facility] HospitalUrine Hdbxx1685-27-20 00:19:00* Test Item Value Reference Range Interpretation Comments Urine Color (test code = 5778-6) YELLOW YELLOW [facility] HospitalUrine Aochbya0897-33-17 00:19:00* Test Item Value Reference Range Interpretation Comments Urine Clarity (test code = 43609-3) CLEAR CLEAR [facility] HospitalUrine Specific Egdcnft5496-76-72 00:19:00 * Test Item Value Reference Range Interpretation Comments Urine Specific [place] (test code = 5811-5) 1.020 1.010-1.02 5 [facility] HospitalUrine rQ7374-76-50 00:19:00* Test Item Value Reference Range Interpretation Comments Urine pH (test code = 13780-7) 5 5-7 [facility] HospitalUrine Leukocyte Uynzoyet3094-35-05 00:19:00* Test Item Value Reference Range Interpretation Comments Urine Leukocyte Esterase (test code = 5799-2) NEGATIVE NEGATIVE [facility] HospitalUrine Faaupam0365-16-31 00:19:00* Test Item Value Reference Range Interpretation Comments Urine Nitrite (test code = 29517-3) NEGATIVE NEGATIVE [facility] HospitalUrine Irxkhlg2792-04-61 00:19:00* Test Item Value Reference Range Interpretation Comments Urine Protein (test code = 5804-0) NEGATIVE NEGATIVE [facility] HospitalUrine Glucose (UA)2017-10-12 00:19:00* Test Item Value Reference Range Interpretation Comments Urine Glucose (UA) (test code = 2349-9) 3+ NEGATIVE H [facility] HospitalUrine Gxqehnj7963-51-91 00:19:00* Test Item Value Reference Range Interpretation Comments Urine Ketones (test code = 28599-6) NEGATIVE NEGATIVE [facility] HospitalUrine Qrfcvsxieqcv3086-74-95 00:19:00* Test Item Value Reference Range Interpretation Comments Urine Urobilinogen (test code = 40070-0) 0.2 0.2-1 [facility] HospitalUrine Ztynarveq5435-81-10 00:19:00* Test Item Value Reference Range Interpretation Comments Urine Bilirubin (test code = 1978-6) NEGATIVE NEGATIVE [facility] HospitalUrine Ofxuz8728-37-47 00:19:00* Test Item Value Reference Range Interpretation Comments Urine Blood (test code = 00800-8) 1+ NEGATIVE H [facility] HospitalBlood Jbjtuhv1091-93-88 11:00:00* Test Item Value Reference Range Interpretation Comments Blood Culture (test code = 88997787) NO GROWTH AFTER 5 DAYS, FINAL REPORT [facility] Piwwzyn8636-10-37 11:00:00* Test Item Value Reference Range Interpretation Comments Blood Culture (test code = 99917515) NO GROWTH AFTER 5 DAYS, FINAL REPORT [facility] Uldanko3856-72-66 12:28:00* Test Item Value Reference Range Interpretation Comments Bedside Glucose (test code = 98709-9) 113 70-120 Meter ID: [id number] [facility] Glucose 2017-09-29 12:28:00* Test Item Value Reference Range Interpretation Comments Bedside Glucose (test code = 41414-8) 113 70-120 Meter ID: [id number] Scott & [facility] Glucose 2017-09-29 12:28:00* Test Item Value Reference Range Interpretation Comments Bedside Glucose (test code = 72911-1) 113 70-120 Meter ID: [id number] [facility] of [facility] Centerside Glucose 2017-09-29 12:28:00* Test Item Value Reference Range Interpretation Comments Bedside Glucose (test code = 56855-1) 113 70-120 Meter ID: [id number] University of [facility] Centerside Glucose 2017-09-29 12:28:00* Test Item Value Reference Range Interpretation Comments Bedside Glucose (test code = 58392-2) 113 70-120 Meter ID: [id number] [facility] Medical Centerodium Level 2017-09-29 08:38:00* Test Item Value Reference Range Interpretation Comments Sodium Level (test code = 2951-2) 138 136-145 [facility] HospitalPotassium Gnlvx7348-76-61 08:38:00* Test Item Value Reference Range Interpretation Comments Potassium Level (test code = 2823-3) 3.7 3.5-5.1 [facility] HospitalChloride Zzdcj7742-30-87 08:38:00* Test Item Value Reference Range Interpretation Comments Chloride Level (test code = 2075-0) 94 98-107 L [facility] HospitalCarbon Dioxide Hgqzf5842-56-38 08:38:00* Test Item Value Reference Range Interpretation Comments Carbon Dioxide Level (test code = 2028-9) 29 22-29 [facility] HospitalAnion Nvw6837-03-18 08:38:00* Test Item Value Reference Range Interpretation Comments Anion Gap (test code = 49951-4) 18.7 8-16 H [facility] HospitalBlood Urea Serrwtfu1275-79-90 08:38:00* Test Item Value Reference Range Interpretation Comments Blood Urea Nitrogen (test code = 3094-0) 25 7-26 [facility] HospitalCreatinine2018 08:38:00* Test Item Value Reference Range Interpretation Comments Creatinine (test code = 2160-0) 1.00 0.57-1.11 [facility] HospitalBUN/Creatinine Zdkmw1033-08-95 08:38:00* Test Item Value Reference Range Interpretation Comments BUN/Creatinine Ratio (test code = 3097-3) 25 6-25 [facility] HospitalEstimat Glomerular Filtration Rate 2017-09-29 08:38:00* Test Item Value Reference Range Interpretation Comments Estimat Glomerular Filtration Rate (test code = 79389-2) 56 >60 L Ranges were taken from the National Kidney Disease Education Program and the [facility] Kidney Foundation literature.Reference ranges:60 or greater: Eydvzj43-29 ( for 3 consecutive months): Chronic kidney disease 15 or less: Kidney failureHarris Health System Ben Taub HospitalGlucose Oypfm2724-36-08 08:38:00* Test Item Value Reference Range Interpretation Comments Glucose Level (test code = VKL2881) 290 74-118 H [facility] HospitalCalcium Zzpcp8785-60-46 08:38:00* Test Item Value Reference Range Interpretation Comments Calcium Level (test code = 08482-0) 9.4 8.4-10.2 [facility] Centerodium Wsifo0374-62-13 08:38:00* Test Item Value Reference Range Interpretation Comments Sodium Level (test code = 2951-2) 138 136-145 [facility] HospitalPotassium Caujz6838-88-41 08:38:00* Test Item Value Reference Range Interpretation Comments Potassium Level (test code = 2823-3) 3.7 3.5-5.1 [facility] HospitalChloride Igcjh6555-36-14 08:38:00* Test Item Value Reference Range Interpretation Comments Chloride Level (test code = 2075-0) 94 98-107 L [facility] HospitalCarbon Dioxide Omwgp7133-21-84 08:38:00* Test Item Value Reference Range Interpretation Comments Carbon Dioxide Level (test code = 2028-9) 29 22-29 [facility] HospitalAnion Vqq3272-59-16 08:38:00* Test Item Value Reference Range Interpretation Comments Anion Gap (test code = 97328-4) 18.7 8-16 H [facility] HospitalBlood Urea Njmtndwr9240-28-66 08:38:00* Test Item Value Reference Range Interpretation Comments Blood Urea Nitrogen (test code = 3094-0) 25 7-26 [facility] HospitalCreatinine2018 08:38:00* Test Item Value Reference Range Interpretation Comments Creatinine (test code = 2160-0) 1.00 0.57-1.11 [facility] HospitalBUN/Creatinine Fzqbq4958-42-19 08:38:00* Test Item Value Reference Range Interpretation Comments BUN/Creatinine Ratio (test code = 3097-3) 25 6-25 [facility] HospitalEstimat Glomerular Filtration Rate 2017-09-29 08:38:00* Test Item Value Reference Range Interpretation Comments Estimat Glomerular Filtration Rate (test code = 59064-7) 56 >60 L Ranges were taken from the National Kidney Disease Education Program and the [facility] literature.Reference ranges:60 or greater: Xaksph50-08 ( for 3 consecutive months): Chronic kidney disease 15 or less: Kidney failureHarris Health System Ben Taub HospitalGlucose Curgc1948-45-86 08:38:00* Test Item Value Reference Range Interpretation Comments Glucose Level (test code = CMB2148) 290 74-118 H [facility] HospitalCalcium Wfxmm9939-93-55 08:38:00* Test Item Value Reference Range Interpretation Comments Calcium Level (test code = 89390-3) 9.4 8.4-10.2 [facility] HospitalArterial Blood nX2881-92-90 13:49:00* Test Item Value Reference Range Interpretation Comments Arterial Blood pH (test code = 2744-1) 7.46 7.31-7.41 H WAS CALLED TO RUN A BLOOD GAS FOR A PT ON ROOM AIR LAYING ON THE TITLE I INSTRUCTIONAL ASSISTANT TABLE [facility] HospitalArterial Blood Partial Pressure CO2 2017-09-28 13:49:00* Test Item Value Reference Range Interpretation Comments Arterial Blood Partial Pressure CO2 (test code = 2019-02) 46 41-51 [facility] HospitalArterial Blood Partial Pressure O2 2017-09-28 13:49:00* Test Item Value Reference Range Interpretation Comments Arterial Blood Partial Pressure O2 (test code = 2019-02) 30 80-105 LL Results called/hand delivered to DR CLINTON LLAMAS at 1328 on 09/28/17 by Mckayla reyna. RB [place].[facility] HospitalArterial Blood HCO3 2017-09-28 13:49:00* Test Item Value Reference Range Interpretation Comments Arterial Blood HCO3 (test code = 1960-4) 33 23-28 H [facility] HospitalArterclevel[facility] Blood Base Gfhmlj4691-35-28 13:49:00* Test Item Value Reference Range Interpretation Comments Arterial Blood Base Excess (test code = 1925-7) 9.0 -2-3 H [facility] HospitalArterial Blood Oxygen Saturation 2017-09-28 13:49:00* Test Item Value Reference Range Interpretation Comments Arterial Blood Oxygen Saturation (test code = 2708-6) 60.0 95-98 L [facility] Blood eZ8690-80-36 13:49:00* Test Item Value Reference Range Interpretation Comments Arterial Blood pH (test code = 2744-1) 7.46 7.31-7.41 H WAS CALLED TO RUN A BLOOD GAS FOR A PT ON ROOM AIR LAYING ON THE TITLE I INSTRUCTIONAL ASSISTANT TABLE [facility] HospitalArterial Blood Partial Pressure CO2 2017-09-28 13:49:00* Test Item Value Reference Range Interpretation Comments Arterial Blood Partial Pressure CO2 (test code = 2018-8) 46 41-51 [facility] HospitalArterial Blood Partial Pressure O2 2017-09-28 13:49:00* Test Item Value Reference Range Interpretation Comments Arterial Blood Partial Pressure O2 (test code = 2018-8) 30 80-105 LL Results called/hand delivered to DR CLINTON LLAMAS at 1328 on 09/28/17 by Mckayla reyna. RB [place].[facility] HospitalArterial Blood HCO3 2017-09-28 13:49:00* Test Item Value Reference Range Interpretation Comments Arterial Blood HCO3 (test code = 1960-4) 33 23-28 H [facility] HospitalArterial Blood Base Zpppaq5349-90-74 13:49:00* Test Item Value Reference Range Interpretation Comments Arterial Blood Base Excess (test code = 1925-7) 9.0 -2-3 H [facility] HospitalArterial Blood Oxygen Saturation 2017-09-28 13:49:00* Test Item Value Reference Range Interpretation Comments Arterial Blood Oxygen Saturation (test code = 2708-6) 60.0 95-98 L [facility] HospitalArtercle[facility] Blood [id number] 13:49:00* Test Item Value Reference Range Interpretation Comments Arterial Blood pH (test code = 2744-1) 7.46 7.31-7.41 H WAS CALLED TO RUN A BLOOD GAS FOR A PT ON ROOM AIR LAYING ON THE TITLE I INSTRUCTIONAL ASSISTANT TABLE [facility] HospitalArterial Blood Partial Pressure CO2 2017-09-28 13:49:00* Test Item Value Reference Range Interpretation Comments Arterial Blood Partial Pressure CO2 (test code = 2019-02) 46 41-51 [facility] HospitalArterial Blood Partial Pressure O2 2017-09-28 13:49:00* Test Item Value Reference Range Interpretation Comments Arterial Blood Partial Pressure O2 (test code = 2019-02) 30 80-105 LL Results called/hand delivered to DR CLINTON LLAMAS at 1328 on 09/28/17 by Mckayla reyna. RB [place].[facility] HospitalArterial Blood HCO3 2017-09-28 13:49:00* Test Item Value Reference Range Interpretation Comments Arterial Blood HCO3 (test code = 1960-4) 33 23-28 H [facility] HospitalArterial Blood Base Psgwkn5439-20-47 13:49:00* Test Item Value Reference Range Interpretation Comments Arterial Blood Base Excess (test code = 1925-7) 9.0 -2-3 H [facility] HospitalArterial Blood Oxygen Saturation 2017-09-28 13:49:00* Test Item Value Reference Range Interpretation Comments Arterial Blood Oxygen Saturation (test code = 2708-6) 60.0 95-98 L [facility] Blood oZ0426-13-26 13:49:00* Test Item Value Reference Range Interpretation Comments Arterial Blood pH (test code = 2744-1) 7.46 7.31-7.41 H WAS CALLED TO RUN A BLOOD GAS FOR A PT ON ROOM AIR LAYING ON THE TITLE I INSTRUCTIONAL ASSISTANT TABLE [facility] HospitalArterial Blood Partial Pressure CO2 2017-09-28 13:49:00* Test Item Value Reference Range Interpretation Comments Arterial Blood Partial Pressure CO2 (test code = 2019-02) 46 41-51 [facility] HospitalArterial Blood Partial Pressure O2 2017-09-28 13:49:00* Test Item Value Reference Range Interpretation Comments Arterial Blood Partial Pressure O2 (test code = 2018-8) 30 80-105 LL Results called/hand delivered to DR CLINTON LLAMAS at 1328 on 09/28/17 by Mckayla reyna. RB [place].[facility] HospitalArterial Blood HCO3 2017-09-28 13:49:00* Test Item Value Reference Range Interpretation Comments Arterial Blood HCO3 (test code = 1960-4) 33 23-28 H [facility] HospitalArterial Blood Base Kwluly2142-43-29 13:49:00* Test Item Value Reference Range Interpretation Comments Arterial Blood Base Excess (test code = 1925-7) 9.0 -2-3 H [facility] HospitalArterial Blood Oxygen Saturation 2017-09-28 13:49:00* Test Item Value Reference Range Interpretation Comments Arterial Blood Oxygen Saturation (test code = 2708-6) 60.0 95-98 L [facility] Blood bQ0712-41-29 13:49:00* Test Item Value Reference Range Interpretation Comments Arterial Blood pH (test code = 2744-1) 7.46 7.31-7.41 H WAS CALLED TO RUN A BLOOD GAS FOR A PT ON ROOM AIR LAYING ON THE TITLE I INSTRUCTIONAL ASSISTANT TABLE [facility] HospitalArterial Blood Partial Pressure CO2 2017-09-28 13:49:00* Test Item Value Reference Range Interpretation Comments Arterial Blood Partial Pressure CO2 (test code = 2018-8) 46 41-51 [facility] HospitalArterial Blood Partial Pressure O2 2017-09-28 13:49:00* Test Item Value Reference Range Interpretation Comments Arterial Blood Partial Pressure O2 (test code = 2019-8) 30 80-105 LL Results called/hand delivered to DR CLINTON LLAMAS at 1328 on 09/28/17 by Mckayla reyna. RB [place].[facility] HospitalArterial Blood HCO3 2017-09-28 13:49:00* Test Item Value Reference Range Interpretation Comments Arterial Blood HCO3 (test code = 1960-4) 33 23-28 H [facility] HospitalArterial Blood Base Tvmwch8067-84-48 13:49:00* Test Item Value Reference Range Interpretation Comments Arterial Blood Base Excess (test code = 1925-7) 9.0 -2-3 H [facility] HospitalArterial Blood Oxygen Saturation 2017-09-28 13:49:00* Test Item Value Reference Range Interpretation Comments Arterial Blood Oxygen Saturation (test code = 2708-6) 60.0 95-98 L [facility] Blood pQ3860-28-64 13:49:00* Test Item Value Reference Range Interpretation Comments Arterial Blood pH (test code = 2744-1) 7.46 7.31-7.41 H WAS CALLED TO RUN A BLOOD GAS FOR A PT ON ROOM AIR LAYING ON THE TITLE I INSTRUCTIONAL ASSISTANT TABLE [facility] HospitalArterial Blood Partial Pressure CO2 2017-09-28 13:49:00* Test Item Value Reference Range Interpretation Comments Arterial Blood Partial Pressure CO2 (test code = 2018-) 46 41-51 [facility] Pressure O2 2017-09-28 13:49:00* Test Item Value Reference Range Interpretation Comments Arterial Blood Partial Pressure O2 (test code = 2018-) 30 80-105 LL Results called/hand delivered to DR CLINTON LLAMAS at 1328 on 09/28/17 by Mckayla reyna. [place].[facility] Hospital[facility] Blood HCO3 2017-09-28 13:49:00* Test Item Value Reference Range Interpretation Comments Arterial Blood HCO3 (test code = 1960-4) 33 23-28 H [facility] HospitalAr[facility] Blood Base [id number] 13:49:00* Test Item Value Reference Range Interpretation Comments Arterial Blood Base Excess (test code = 1925-7) 9.0 -2-3 H [facility] Blood Oxygen Saturation 2017-09-28 13:49:00* Test Item Value Reference Range Interpretation Comments Arterial Blood Oxygen Saturation (test code = 2708-6) 60.0 95-98 L [facility] [id number] 13:49:00* Test Item Value Reference Range Interpretation Comments Arterial Blood pH (test code = 2744-1) 7.46 7.31-7.41 H WAS CALLED TO RUN A BLOOD GAS FOR A PT ON ROOM AIR LAYING ON THE TITLE I INSTRUCTIONAL ASSISTANT TABLE [facility] Partial Pressure CO2 2017-09-28 13:49:00* Test Item Value Reference Range Interpretation Comments Arterial Blood Partial Pressure CO2 (test code = 2018-8) 46 41-51 [facility] HospitalAr[facility] Partial Pressure O2 2017-09-28 13:49:00* Test Item Value Reference Range Interpretation Comments Arterial Blood Partial Pressure O2 (test code = 2019-02) 30 80-105 LL Results called/hand delivered to DR CLINTON LLAMAS at 1328 on 09/28/17 by Mckayla reyna. [place].[facility] Hospital[facility] Blood HCO3 2017-09-28 13:49:00* Test Item Value Reference Range Interpretation Comments Arterial Blood HCO3 (test code = 1960-4) 33 23-28 H [facility] HospitalAr[facility] Blood Base [id number] 13:49:00* Test Item Value Reference Range Interpretation Comments Arterial Blood Base Excess (test code = 1925-7) 9.0 -2-3 H [facility] Blood Oxygen Saturation 2017-09-28 13:49:00* Test Item Value Reference Range Interpretation Comments Arterial Blood Oxygen Saturation (test code = 2708-6) 60.0 95-98 L [facility] Blood [id number] 13:49:00* Test Item Value Reference Range Interpretation Comments Arterial Blood pH (test code = 2744-1) 7.46 7.31-7.41 H WAS CALLED TO RUN A BLOOD GAS FOR A PT ON ROOM AIR LAYING ON THE TITLE I INSTRUCTIONAL ASSISTANT TABLE [facility] Partial Pressure CO2 2017-09-28 13:49:00* Test Item Value Reference Range Interpretation Comments Arterial Blood Partial Pressure CO2 (test code = 8) 46 41-51 [facility] HospitalAr[facility] Partial Pressure O2 2017-09-28 13:49:00* Test Item Value Reference Range Interpretation Comments Arterial Blood Partial Pressure O2 (test code = 2019-02) 30 80-105 LL Results called/hand delivered to DR CLINTON LLAMAS at 1328 on 09/28/17 by Mckayla reyna. [place].[facility] Hospital[facility] Blood HCO3 2017-09-28 13:49:00* Test Item Value Reference Range Interpretation Comments Arterial Blood HCO3 (test code = 1960-4) 33 23-28 H [facility] Blood Base [id number] 13:49:00* Test Item Value Reference Range Interpretation Comments Arterial Blood Base Excess (test code = 1925-7) 9.0 -2-3 H [facility] Oxygen Saturation 2017-09-28 13:49:00* Test Item Value Reference Range Interpretation Comments Arterial Blood Oxygen Saturation (test code = 2708-6) 60.0 95-98 L [facility] Blood [id number] 13:49:00* Test Item Value Reference Range Interpretation Comments Arterial Blood pH (test code = 2744-1) 7.46 7.31-7.41 H WAS CALLED TO RUN A BLOOD GAS FOR A PT ON ROOM AIR LAYING ON THE TITLE I INSTRUCTIONAL ASSISTANT TABLE [facility] Partial Pressure CO2 2017-09-28 13:49:00* Test Item Value Reference Range Interpretation Comments Arterial Blood Partial Pressure CO2 (test code = 2018-8) 46 41-51 [facility] HospitalAr[facility] Blood Partial Pressure O2 2017-09-28 13:49:00* Test Item Value Reference Range Interpretation Comments Arterial Blood Partial Pressure O2 (test code = 2018-8) 30 80-105 LL Results called/hand delivered to DR CLINTON LLAMAS at 1328 on 09/28/17 by Mckayla reyna. [place].[facility] Blood HCO3 2017-09-28 13:49:00* Test Item Value Reference Range Interpretation Comments Arterial Blood HCO3 (test code = 1960-4) 33 23-28 H [facility]Ar[facility] Blood Base [id number] 13:49:00* Test Item Value Reference Range Interpretation Comments Arterial Blood Base Excess (test code = 1925-7) 9.0 -2-3 H [facility]Ar[facility] Blood Oxygen Saturation 2017-09-28 13:49:00* Test Item Value Reference Range Interpretation Comments Arterial Blood Oxygen Saturation (test code = 2708-6) 60.0 95-98 L [facility]Ar[facility] Blood [id number] 13:49:00* Test Item Value Reference Range Interpretation Comments Arterial Blood pH (test code = 2744-1) 7.46 7.31-7.41 H WAS CALLED TO RUN A BLOOD GAS FOR A PT ON ROOM AIR LAYING ON THE TITLE I INSTRUCTIONAL ASSISTANT TABLE [facility]Ar[facility] Partial Pressure CO2 2017-09-28 13:49:00* Test Item Value Reference Range Interpretation Comments Arterial Blood Partial Pressure CO2 (test code = 2019-02) 46 41-51 [facility] HospitalAr[facility] Blood Partial Pressure O2 2017-09-28 13:49:00* Test Item Value Reference Range Interpretation Comments Arterial Blood Partial Pressure O2 (test code = 2019-02) 30 80-105 LL Results called/hand delivered to DR CLINTON LLAMAS at 1328 on 09/28/17 by Mckayla reyna. [place].[facility] HospitalAr[facility] Blood HCO3 2017-09-28 13:49:00* Test Item Value Reference Range Interpretation Comments Arterial Blood HCO3 (test code = 1960-4) 33 23-28 H [facility] HospitalAr[facility] Blood Base [id number] 13:49:00* Test Item Value Reference Range Interpretation Comments Arterial Blood Base Excess (test code = 1925-7) 9.0 -2-3 H [facility] HospitalAr[facility] Blood Oxygen Saturation 2017-09-28 13:49:00* Test Item Value Reference Range Interpretation Comments Arterial Blood Oxygen Saturation (test code = 2708-6) 60.0 95-98 L [facility] Blood [id number] 13:49:00* Test Item Value Reference Range Interpretation Comments Arterial Blood pH (test code = 2744-1) 7.46 7.31-7.41 H WAS CALLED TO RUN A BLOOD GAS FOR A PT ON ROOM AIR LAYING ON THE TITLE I INSTRUCTIONAL ASSISTANT TABLE [facility] HospitalAr[facility] Blood Partial Pressure CO2 2017-09-28 13:49:00* Test Item Value Reference Range Interpretation Comments Arterial Blood Partial Pressure CO2 (test code = 2019-02) 46 41-51 [facility] HospitalAr[facility]ial Blood Partial Pressure O2 2017-09-28 13:49:00* Test Item Value Reference Range Interpretation Comments Arterial Blood Partial Pressure O2 (test code = 2019-8) 30 80-105 LL Results called/hand delivered to DR CLINTON LLAMAS at 1328 on 09/28/17 by Mckayla reyna. [place].[facility] HospitalAr[facility] Blood HCO3 2017-09-28 13:49:00* Test Item Value Reference Range Interpretation Comments Arterial Blood HCO3 (test code = 1960-4) 33 23-28 H [facility] HospitalAr[facility] Blood Base [id number] 13:49:00* Test Item Value Reference Range Interpretation Comments Arterial Blood Base Excess (test code = 1925-7) 9.0 -2-3 H [facility] HospitalAr[facility] Blood Oxygen Saturation 2017-09-28 13:49:00* Test Item Value Reference Range Interpretation Comments Arterial Blood Oxygen Saturation (test code = 2708-6) 60.0 95-98 L [facility] HospitalBlood [id number] 11:00:00* Test Item Value Reference Range Interpretation Comments Blood Culture (test code = 43396097) NO GROWTH AFTER 72 HOURS [facility] HospitalCreatine Kinase [id number] 07:21:00* Test Item Value Reference Range Interpretation Comments Creatine Kinase MB (test code = 70473-6) 1.40 0-5.0 [facility] HospitalTroponin [id number] 07:21:00* Test Item Value Reference Range Interpretation Comments Troponin I (test code = UQK2499) -0.001 0-0.300 [facility] HospitalCreatine Kinase [id number] 07:21:00* Test Item Value Reference Range Interpretation Comments Creatine Kinase MB (test code = 13358-9) 1.40 0-5.0 [place] [id number] 07:21:00* Test Item Value Reference Range Interpretation Comments Troponin I (test code = AVS7313) -0.001 0-0.300 [facility] HospitalCreatine Cwvdgl0368-40-53 07:19:00* Test Item Value Reference Range Interpretation Comments Creatine Kinase (test code = 2157-6) 67 29-168 [facility] HospitalCreatine [id number] 07:19:00* Test Item Value Reference Range Interpretation Comments Creatine Kinase (test code = 2157-6) 67 29-168 [facility] HospitalWhite Blood [id number] 07:00:00* Test Item Value Reference Range Interpretation Comments White Blood Count (test code = 6690-2) 8.36 4.8-10.8 [facility] HospitalRed Blood [id number] 07:00:00* Test Item Value Reference Range Interpretation Comments Red Blood Count (test code = 789-8) 4.13 3.6-5.1 [facility] HospitalHemoglobin2018-03-06 07:00:00* Test Item Value Reference Range Interpretation Comments Hemoglobin (test code = 78677-6) 10.9 12.0-16.0 L [facility] HospitalHematocrit2018-03-06 07:00:00* Test Item Value Reference Range Interpretation Comments Hematocrit (test code = 4544-3) 35.0 34.2-44.1 [facility] HospitalMean Corpuscular Jwurzj1630-53-12 07:00:00* Test Item Value Reference Range Interpretation Comments Mean Corpuscular Volume (test code = 787-2) 84.7 81-99 [facility] HospitalMean Corpuscular Dbmbhqauez4724-43-45 07:00:00* Test Item Value Reference Range Interpretation Comments Mean Corpuscular Hemoglobin (test code = 785-6) 26.4 28-32 L [facility] HospitalMean Corpuscular Hemoglobin Concent 2017-09-26 07:00:00* Test Item Value Reference Range Interpretation Comments Mean Corpuscular Hemoglobin Concent (test code = 786-4) 31.1 31-35 [facility] HospitalRed Cell Distribution [id number] 07:00:00* Test Item Value Reference Range Interpretation Comments Red Cell Distribution Width (test code = 19552-5) 15.1 11.7 -14.4 H [facility] HospitalPlatelet Sxbgc4551-85-26 07:00:00* Test Item Value Reference Range Interpretation Comments Platelet Count (test code = 777-3) 223 140-360 [facility] HospitalNeutrophils (%) (Auto)2017-09-26 07:00:00 * Test Item Value Reference Range Interpretation Comments Neutrophils (%) (Auto) (test code = 47059-3) 80.9 38.7-80.0 H [facility] HospitalLymphocytes (%) (Auto)2017-09-26 07:00:00 * Test Item Value Reference Range Interpretation Comments Lymphocytes (%) (Auto) (test code = 736-9) 12.3 18.0-39.1 L [facility] HospitalMonocytes (%) (Auto)2017-09-26 07:00:00* Test Item Value Reference Range Interpretation Comments Monocytes (%) (Auto) (test code = 5905-5) 5.1 4.4-11.3 [facility] HospitalEosinophils (%) (Auto)2017-09-26 07:00:00 * Test Item Value Reference Range Interpretation Comments Eosinophils (%) (Auto) (test code = 713-8) 0.0 0.0-6.0 [facility] HospitalBasophils (%) (Auto)2017-09-26 07:00:00* Test Item Value Reference Range Interpretation Comments Basophils (%) (Auto) (test code = 706-2) 0.4 0.0-1.0 [facility] HospitalIM GRANULOCYTES %2017-09-26 07:00:00* Test Item Value Reference Range Interpretation Comments IM GRANULOCYTES % (test code = IM GRANULOCYTES %) 1.3 0.0- 1.0 H [facility] HospitalNeutrophils # (Auto)2017-09-26 07:00:00* Test Item Value Reference Range Interpretation Comments Neutrophils # (Auto) (test code = 751-8) 6.8 2.1-6.9 [facility] HospitalLymphocytes # (Auto)2017-09-26 07:00:00* Test Item Value Reference Range Interpretation Comments Lymphocytes # (Auto) (test code = 56309-6) 1.0 1.0-3.2 [facility] HospitalMonocytes # (Auto)2017-09-26 07:00:00* Test Item Value Reference Range Interpretation Comments Monocytes # (Auto) (test code = 742-7) 0.4 0.2-0.8 [facility] HospitalEosinophils # (Auto)2017-09-26 07:00:00* Test Item Value Reference Range Interpretation Comments Eosinophils # (Auto) (test code = 711-2) 0.0 0.0-0.4 [facility] HospitalBasophils # (Auto)2017-09-26 07:00:00* Test Item Value Reference Range Interpretation Comments Basophils # (Auto) (test code = 704-7) 0.0 0.0-0.1 [facility] HospitalAbsolute Immature Granulocyte (auto 2017-09-26 07:00:00* Test Item Value Reference Range Interpretation Comments Absolute Immature Granulocyte (auto (joseph t code = Absolute Immature Granulocyte (auto) 0.11 0-0.1 H [facility] HospitalWhite Blood Xqwcw9627-05-27 07:00:00* Test Item Value Reference Range Interpretation Comments White Blood Count (test code = 6690-2) 8.36 4.8-10.8 [facility] HospitalRed Blood Giugt4053-65-79 07:00:00* Test Item Value Reference Range Interpretation Comments Red Blood Count (test code = 789-8) 4.13 3.6-5.1 [facility] HospitalHemoglobin2018-03-06 07:00:00* Test Item Value Reference Range Interpretation Comments Hemoglobin (test code = 93831-7) 10.9 12.0-16.0 L [facility] HospitalHematocrit2018-03-06 07:00:00* Test Item Value Reference Range Interpretation Comments Hematocrit (test code = 4544-3) 35.0 34.2-44.1 [facility] HospitalMean Corpuscular Fnftvg3402-07-86 07:00:00* Test Item Value Reference Range Interpretation Comments Mean Corpuscular Volume (test code = 787-2) 84.7 81-99 [facility] HospitalMean Corpuscular Vtrjqnnofv2189-80-49 07:00:00* Test Item Value Reference Range Interpretation Comments Mean Corpuscular Hemoglobin (test code = 785-6) 26.4 28-32 [facility] Hemoglobin Concent 2017-09-26 07:00:00* Test Item Value Reference Range Interpretation Comments Mean Corpuscular Hemoglobin Concent (test code = 786-4) 31.1 31-35 [facility] HospitalRed Cell Distribution Eafhf3660-70-39 07:00:00* Test Item Value Reference Range Interpretation Comments Red Cell Distribution Width (test code = 17326-6) 15.1 11.7 -14.4 H [facility] HospitalPlatelet Hkril3573-57-60 07:00:00* Test Item Value Reference Range Interpretation Comments Platelet Count (test code = 777-3) 223 140-360 [facility] HospitalNeutrophils (%) (Auto)2017-09-26 07:00:00 * Test Item Value Reference Range Interpretation Comments Neutrophils (%) (Auto) (test code = 98774-7) 80.9 38.7-80.0 H [facility] HospitalLymphocytes (%) (Auto)2017-09-26 07:00:00 * Test Item Value Reference Range Interpretation Comments Lymphocytes (%) (Auto) (test code = 736-9) 12.3 18.0-39.1 L [facility] HospitalMonocytes (%) (Auto)2017-09-26 07:00:00* Test Item Value Reference Range Interpretation Comments Monocytes (%) (Auto) (test code = 5905-5) 5.1 4.4-11.3 [facility] HospitalEosinophils (%) (Auto)2017-09-26 07:00:00 * Test Item Value Reference Range Interpretation Comments Eosinophils (%) (Auto) (test code = 713-8) 0.0 0.0-6.0 [facility] HospitalBasophils (%) (Auto)2017-09-26 07:00:00* Test Item Value Reference Range Interpretation Comments Basophils (%) (Auto) (test code = 706-2) 0.4 0.0-1.0 [facility] HospitalIM GRANULOCYTES %2017-09-26 07:00:00* Test Item Value Reference Range Interpretation Comments IM GRANULOCYTES % (test code = IM GRANULOCYTES %) 1.3 0.0- 1.0 H [facility] HospitalNeutrophils # (Auto)2017-09-26 07:00:00* Test Item Value Reference Range Interpretation Comments Neutrophils # (Auto) (test code = 751-8) 6.8 2.1-6.9 [facility] HospitalLymphocytes # (Auto)2017-09-26 07:00:00* Test Item Value Reference Range Interpretation Comments Lymphocytes # (Auto) (test code = 14606-8) 1.0 1.0-3.2 [facility] HospitalMonocytes # (Auto)2017-09-26 07:00:00* Test Item Value Reference Range Interpretation Comments Monocytes # (Auto) (test code = 742-7) 0.4 0.2-0.8 [facility] HospitalEosinophils # (Auto)2017-09-26 07:00:00* Test Item Value Reference Range Interpretation Comments Eosinophils # (Auto) (test code = 711-2) 0.0 0.0-0.4 [facility] HospitalBasophils # (Auto)2017-09-26 07:00:00* Test Item Value Reference Range Interpretation Comments Basophils # (Auto) (test code = 704-7) 0.0 0.0-0.1 [facility] HospitalAbsolute Immature Granulocyte (auto 2017-09-26 07:00:00* Test Item Value Reference Range Interpretation Comments Absolute Immature Granulocyte (auto (joseph t code = Absolute Immature Granulocyte (auto) 0.11 0-0.1 H [facility] HospitalProthrombin [id number] 11:58:00* Test Item Value Reference Range Interpretation Comments Prothrombin Time (test code = 5902-2) 13.2 11.9-14.5 [facility] HospitalProthromb Time International Ratio 2017-09-25 11:58:00* Test Item Value Reference Range Interpretation Comments Prothromb Time International Ratio (test code = 6301-6) 1.08 Oral Anticoagulant Therapy INR Values:1. Low Intensity Therapy 1.5 - 2.02 . Moderate Intensity Therapy 2.0 - 3.03. High Intensity Therapy(1) 2.5 - 3. 54. High Intensity Therapy(2) 3.0 - 4.05. Panic Value INR > 5.0 [facility] HospitalActivated Partial Thromboplast Time 2017-09-25 11:58:00* Test Item Value Reference Range Interpretation Comments Activated Partial Thromboplast Time (test code = 98428-6) 23.7 23.8-35.5 L [facility] HospitalB-Type Natriuretic [id number] 11:58:00* Test Item Value Reference Range Interpretation Comments B-Type Natriuretic Peptide (test code = 72720-3) 77.1 0-100 [facility] HospitalProthrombin [id number] 11:58:00* Test Item Value Reference Range Interpretation Comments Prothrombin Time (test code = 5902-2) 13.2 11.9-14.5 [facility] HospitalProthromb Time International Ratio 2017-09-25 11:58:00* Test Item Value Reference Range Interpretation Comments Prothromb Time International Ratio (test code = 6301-6) 1.08 Oral Anticoagulant Therapy INR Values:1. Low Intensity Therapy 1.5 - 2.02 . Moderate Intensity Therapy 2.0 - 3.03. High Intensity Therapy(1) 2.5 - 3. 54. High Intensity Therapy(2) 3.0 - 4.05. Panic Value INR > 5.0 [facility] HospitalActivated Partial Thromboplast Time 2017-09-25 11:58:00* Test Item Value Reference Range Interpretation Comments Activated Partial Thromboplast Time (test code = 34359-2) 23.7 23.8-35.5 L [facility] HospitalB-Type Natriuretic Elqunel5302-18-26 11:58:00* Test Item Value Reference Range Interpretation Comments B-Type Natriuretic Peptide (test code = 81736-5) 77.1 0-100 [facility] HospitalInfluenza Virus Types A,B Antigen 2017-09-25 11:57:00* Test Item Value Reference Range Interpretation Comments Influenza Virus Types A,B Antigen (test code = 44145-3) NEGATIVE NEGATIVE [facility] HospitalInfluenza Virus Types A,B Antigen 2017-09-25 11:57:00* Test Item Value Reference Range Interpretation Comments Influenza Virus Types A,B Antigen (test code = 57150-4) NEGATIVE NEGATIVE [facility] HospitalInfluenza Virus Types A,B Antigen 2017-09-25 11:57:00* Test Item Value Reference Range Interpretation Comments Influenza Virus Types A,B Antigen (test code = 38000-5) NEGATIVE NEGATIVE [facility] HospitalInfluenza Virus Types A,B Antigen 2017-09-25 11:57:00* Test Item Value Reference Range Interpretation Comments Influenza Virus Types A,B Antigen (test code = 87426-1) NEGATIVE NEGATIVE [facility] HospitalInfluenza Virus Types A,B Antigen 2017-09-25 11:57:00* Test Item Value Reference Range Interpretation Comments Influenza Virus Types A,B Antigen (test code = 65705-0) NEGATIVE NEGATIVE [facility] HospitalInfluenza Virus Types A,B Antigen 2017-09-25 11:57:00* Test Item Value Reference Range Interpretation Comments Influenza Virus Types A,B Antigen (test code = 30595-5) NEGATIVE NEGATIVE [facility] HospitalInfluenza Virus Types A,B Antigen 2017-09-25 11:57:00* Test Item Value Reference Range Interpretation Comments Influenza Virus Types A,B Antigen (test code = 04356-0) NEGATIVE NEGATIVE [facility] HospitalInfluenza Virus Types A,B Antigen 2017-09-25 11:57:00* Test Item Value Reference Range Interpretation Comments Influenza Virus Types A,B Antigen (test code = 49134-5) NEGATIVE NEGATIVE [facility] HospitalInfluenza Virus Types A,B Antigen 2017-09-25 11:57:00* Test Item Value Reference Range Interpretation Comments Influenza Virus Types A,B Antigen (test code = 36391-9) NEGATIVE NEGATIVE [facility] HospitalInfluenza Virus Types A,B Antigen 2017-09-25 11:57:00* Test Item Value Reference Range Interpretation Comments Influenza Virus Types A,B Antigen (test code = 52501-0) NEGATIVE NEGATIVE [facility] HospitalInfluenza Virus Types A,B Antigen 2017-09-25 11:57:00* Test Item Value Reference Range Interpretation Comments Influenza Virus Types A,B Antigen (test code = 34432-0) NEGATIVE NEGATIVE [facility] HospitalUrine [id number] 11:55:00* Test Item Value Reference Range Interpretation Comments Urine WBC (test code = 5821-4) NONE 0-5 [facility] HospitalUrine [id number] 11:55:00* Test Item Value Reference Range Interpretation Comments Urine RBC (test code = 37179-5) NONE 0-5 [facility] HospitalUrine Qtlckmsy0129-76-12 11:55:00* Test Item Value Reference Range Interpretation Comments Urine Bacteria (test code = 91344-8) NONE NONE [facility] HospitalUrine Epithelial Idghc5545-38-03 11:55:00 * Test Item Value Reference Range Interpretation Comments Urine Epithelial Cells (test code = 71161-0) RARE NONE [facility] HospitalUrine [id number] 11:55:00* Test Item Value Reference Range Interpretation Comments Urine WBC (test code = 5821-4) NONE 0-5 [facility] HospitalUrine [id number] 11:55:00* Test Item Value Reference Range Interpretation Comments Urine RBC (test code = 81023-5) NONE 0-5 [facility] HospitalUrine Tvfsdeho3297-35-24 11:55:00* Test Item Value Reference Range Interpretation Comments Urine Bacteria (test code = 42524-3) NONE NONE [facility] HospitalUrine Epithelial Ssfjf0155-12-27 11:55:00 * Test Item Value Reference Range Interpretation Comments Urine Epithelial Cells (test code = 30058-7) RARE NONE [facility] HospitalThyroid Stimulating Hormone (TSH) 2017-09-25 11:50:00* Test Item Value Reference Range Interpretation Comments Thyroid Stimulating Hormone (TSH) (test code = 02576-8) 0.515 0.350-4.940 [facility] HospitalThyroid Stimulating Hormone (TSH) 2017-09-25 11:50:00* Test Item Value Reference Range Interpretation Comments Thyroid Stimulating Hormone (TSH) (test code = 03049-5) 0.515 0.350-4.940 [facility] [facility]orm[facility] ([facility]SH[facility] 2017-09-25 11:50:00* Test Item Value Reference Range Interpretation Comments Thyroid Stimulating Hormone (TSH) (test code = 42045-5) 0.515 0.350-4.940 [facility] HospitalTh[facility]ulating [facility]ormone (TSH) 2017-09-25 11:50:00* Test Item Value Reference Range Interpretation Comments Thyroid Stimulating Hormone (TSH) (test code = 49502-1) 0.515 0.350-4.940 [facility] HospitalThyroid Stimulating Hormone (TSH) 2017-09-25 11:50:00* Test Item Value Reference Range Interpretation Comments Thyroid Stimulating Hormone (TSH) (test code = 37318-1) 0.515 0.350-4.940 [facility] HospitalUrine Cykid6298-50-56 11:45:00* Test Item Value Reference Range Interpretation Comments Urine Color (test code = 5778-6) COLORLESS YELLOW [facility] HospitalUrine Xjejptn8565-02-14 11:45:00* Test Item Value Reference Range Interpretation Comments Urine Clarity (test code = 95825-8) CLEAR CLEAR [facility] HospitalUrine Specific Sgmdgvv4266-90-32 11:45:00 * Test Item Value Reference Range Interpretation Comments Urine Specific [place] (test code = 5811-5) 1.010 1.010-1.02 5 [facility] HospitalUrine uY9180-08-64 11:45:00* Test Item Value Reference Range Interpretation Comments Urine pH (test code = 94370-3) 6 5-7 [facility] HospitalU[facility] Leukocyte Bjdbmryr0347-72-23 11:45:00* Test Item Value Reference Range Interpretation Comments Urine Leukocyte Esterase (test code = 5799-2) NEGATIVE NEGATIVE [facility] HospitalU[facility] Ewvvivu7909-57-23 11:45:00* Test Item Value Reference Range Interpretation Comments Urine Nitrite (test code = 61934-6) NEGATIVE NEGATIVE [facility] HospitalUrine Bviruyt0144-58-81 11:45:00* Test Item Value Reference Range Interpretation Comments Urine Protein (test code = 5804-0) NEGATIVE NEGATIVE [facility] HospitalUrine Glucose (UA)2017-09-25 11:45:00* Test Item Value Reference Range Interpretation Comments Urine Glucose (UA) (test code = 2349-9) NEGATIVE NEGATIVE [facility] HospitalUrine Zeqtsob7302-74-94 11:45:00* Test Item Value Reference Range Interpretation Comments Urine Ketones (test code = 37755-4) NEGATIVE NEGATIVE [facility] HospitalUrine Fwluukjzwhum8148-32-89 11:45:00* Test Item Value Reference Range Interpretation Comments Urine Urobilinogen (test code = 89928-2) 0.2 0.2-1 [facility] HospitalU[facility] Dgnvfbhbh1221-84-37 11:45:00* Test Item Value Reference Range Interpretation Comments Urine Bilirubin (test code = 1978-6) NEGATIVE NEGATIVE [facility] HospitalUrine Fjupb1269-76-44 11:45:00* Test Item Value Reference Range Interpretation Comments Urine Blood (test code = 09416-3) NEGATIVE NEGATIVE [facility] HospitalUrine Xwhpz9231-07-06 11:45:00* Test Item Value Reference Range Interpretation Comments Urine Color (test code = 5778-6) COLORLESS YELLOW [facility] HospitalUrine Ymksymg0825-75-15 11:45:00* Test Item Value Reference Range Interpretation Comments Urine Clarity (test code = 15543-6) CLEAR CLEAR [facility] HospitalUrine Specific Sbxifih4054-48-48 11:45:00 * Test Item Value Reference Range Interpretation Comments Urine Specific [place] (test code = 5811-5) 1.010 1.010-1.02 5 [facility] HospitalUrine bM2157-12-88 11:45:00* Test Item Value Reference Range Interpretation Comments Urine pH (test code = 49198-2) 6 5-7 [facility] HospitalU[facility] Leukocyte Qskyckld8782-27-12 11:45:00* Test Item Value Reference Range Interpretation Comments Urine Leukocyte Esterase (test code = 5799-2) NEGATIVE NEGATIVE [facility] HospitalU[facility] Sdxiund3448-26-57 11:45:00* Test Item Value Reference Range Interpretation Comments Urine Nitrite (test code = 97515-0) NEGATIVE NEGATIVE [facility] HospitalUrine Xzbwryc5151-90-56 11:45:00* Test Item Value Reference Range Interpretation Comments Urine Protein (test code = 5804-0) NEGATIVE NEGATIVE [facility] Glucose (UA)2017-09-25 11:45:00* Test Item Value Reference Range Interpretation Comments Urine Glucose (UA) (test code = 2349-9) NEGATIVE NEGATIVE [facility] HospitalUrine Wtoisgj2222-50-51 11:45:00* Test Item Value Reference Range Interpretation Comments Urine Ketones (test code = 97423-0) NEGATIVE NEGATIVE [facility] HospitalUrine Lkvhknastxln7567-62-18 11:45:00* Test Item Value Reference Range Interpretation Comments Urine Urobilinogen (test code = 11925-2) 0.2 0.2-1 [facility] HospitalUrine Abkmiilhu8610-28-49 11:45:00* Test Item Value Reference Range Interpretation Comments Urine Bilirubin (test code = 1978-6) NEGATIVE NEGATIVE [facility] HospitalUrine Jwfoj4006-10-05 11:45:00* Test Item Value Reference Range Interpretation Comments Urine Blood (test code = 30223-9) NEGATIVE NEGATIVE [facility] HospitalTotal Xezlcakph0379-71-36 11:25:00* Test Item Value Reference Range Interpretation Comments Total Bilirubin (test code = 1975-2) 0.3 0.2-1.2 [facility] HospitalAspartate Amino Transf (AST/SGOT) 2017-09-25 11:25:00* Test Item Value Reference Range Interpretation Comments Aspartate Amino Transf (AST/SGOT) (test code = Aspartate Amino Transf (AST/SGOT)) 23 -34 [facility] HospitalAlanine Aminotransferase (ALT/SGPT) 2017-09-25 11:25:00* Test Item Value Reference Range Interpretation Comments Alanine Aminotransferase (ALT/SGPT) (test code = 1742-6) 27 0-55 [facility] HospitalTotal Iqnkget1541-68-44 11:25:00* Test Item Value Reference Range Interpretation Comments Total Protein (test code = 2885-2) 6.8 6.5-8.1 [facility] HospitalAlbumin2018-03-05 11:25:00* Test Item Value Reference Range Interpretation Comments Albumin (test code = 1751-7) 3.4 3.5-5.0 L [facility] HospitalGlobulin2018-03-05 11:25:00* Test Item Value Reference Range Interpretation Comments Globulin (test code = 88465-7) 3.4 2.3-3.5 [facility] HospitalAlbumin/Globulin Ertjf1293-32-36 11:25:00 * Test Item Value Reference Range Interpretation Comments Albumin/Globulin Ratio (test code = 1759-0) 1.0 0.8-2.0 [facility] HospitalAlkaline Erkizrruhas1930-79-42 11:25:00* Test Item Value Reference Range Interpretation Comments Alkaline Phosphatase (test code = 6768-6) 67 40-150 [facility] HospitalTotal Alvunvdhx7865-84-85 11:25:00* Test Item Value Reference Range Interpretation Comments Total Bilirubin (test code = 1975-2) 0.3 0.2-1.2 [facility] HospitalAspartate Amino Transf (AST/SGOT) 2017-09-25 11:25:00* Test Item Value Reference Range Interpretation Comments Aspartate Amino Transf (AST/SGOT) (test code = Aspartate Amino Transf (AST/SGOT)) 23 5-34 [facility] HospitalAlanine Aminotransferase (ALT/SGPT) 2017-09-25 11:25:00* Test Item Value Reference Range Interpretation Comments Alanine Aminotransferase (ALT/SGPT) (test code = 1742-6) 27 0-55 [facility] HospitalTotal Rymukcn7873-56-22 11:25:00* Test Item Value Reference Range Interpretation Comments Total Protein (test code = 2885-2) 6.8 6.5-8.1 [facility] HospitalAlbumin2018-03-05 11:25:00* Test Item Value Reference Range Interpretation Comments Albumin (test code = 1751-7) 3.4 3.5-5.0 L [facility] HospitalGlobulin2018-03-05 11:25:00* Test Item Value Reference Range Interpretation Comments Globulin (test code = 54832-8) 3.4 2.3-3.5 [facility] HospitalAlbumin/Globulin Xlvwg1984-23-90 11:25:00 * Test Item Value Reference Range Interpretation Comments Albumin/Globulin Ratio (test code = 1759-0) 1.0 0.8-2.0 [facility] HospitalAlkaline Kibtttabymy5446-39-24 11:25:00* Test Item Value Reference Range Interpretation Comments Alkaline Phosphatase (test code = 6768-6) 67 40-150 [facility] HospitalBedside Tmajtfp9305-56-35 13:07:00* Test Item Value Reference Range Interpretation Comments Bedside Glucose (test code = 79769-2) 373 70-120 H Meter ID: [id number] HospitalBlood Culture 2017-08-26 07:45:00* Test Item Value Reference Range Interpretation Comments Blood Culture (test code = 43086233) NO GROWTH AFTER 48 [facility]RS [facility] Vocgm3383-76-83 07:23:00* Test Item Value Reference Range Interpretation Comments Sodium Level (test code = 2951-2) 139 136-145 [facility] HospitalPotassium Nnkdu1910-21-03 07:23:00* Test Item Value Reference Range Interpretation Comments Potassium Level (test code = 2823-3) 4.7 3.5-5.1 [facility] HospitalChloride Vnxtu9585-08-81 07:23:00* Test Item Value Reference Range Interpretation Comments Chloride Level (test code = 2075-0) 103 98-107 [facility] HospitalCarbon Dioxide Nivrj4585-23-78 07:23:00* Test Item Value Reference Range Interpretation Comments Carbon Dioxide Level (test code = 8-9) 28 22-29 [facility] HospitalAnion Mfi9893-16-77 07:23:00* Test Item Value Reference Range Interpretation Comments Anion Gap (test code = 63334-8) 12.7 8-16 [facility] HospitalBlood Urea Zbzwrjeo4624-95-22 07:23:00* Test Item Value Reference Range Interpretation Comments Blood Urea Nitrogen (test code = 3094-0) 19 7-26 [facility] HospitalCreatinine2018-02-02 07:23:00* Test Item Value Reference Range Interpretation Comments Creatinine (test code = 2160-0) 1.05 0.57-1.11 [facility] HospitalBUN/Creatinine Vszfb0626-42-80 07:23:00* Test Item Value Reference Range Interpretation Comments BUN/Creatinine Ratio (test code = 3097-3) 18 6-25 [facility] HospitalEstimat Glomerular Filtration Rate 2017-08-25 07:23:00* Test Item Value Reference Range Interpretation Comments Estimat Glomerular Filtration Rate (test code = 26645-0) 53 >60 L Ranges were taken from the National Kidney Disease Education Program and the [facility] literature.Reference ranges:60 or greater: Blrcbe20-78 ( for 3 consecutive months): Chronic kidney disease 15 or less: Kidney failureHarris Health System Ben Ta[facility] HospitalGlucose Dxbmv8717-58-08 07:23:00* Test Item Value Reference Range Interpretation Comments Glucose Level (test code = ESS4763) 249 74-118 H [facility] HospitalCalcium Osgce2957-24-83 07:23:00* Test Item Value Reference Range Interpretation Comments Calcium Level (test code = 81018-1) 8.8 8.4-10.2 [facility] HospitalTotal Wmvkhtxul9089-34-80 07:23:00* Test Item Value Reference Range Interpretation Comments Total Bilirubin (test code = 1975-2) 0.5 0.2-1.2 [facility] HospitalAspartate Amino Transf (AST/SGOT) 2017-08-25 07:23:00* Test Item Value Reference Range Interpretation Comments Aspartate Amino Transf (AST/SGOT) (test code = Aspartate Amino Transf (AST/SGOT)) 15 5-34 [facility] HospitalAlanine Aminotransferase (ALT/SGPT) 2017-08-25 07:23:00* Test Item Value Reference Range Interpretation Comments Alanine Aminotransferase (ALT/SGPT) (test code = 1742-6) 16 0-55 [facility] HospitalTotal Cuoatua8440-43-18 07:23:00* Test Item Value Reference Range Interpretation Comments Total Protein (test code = 2885-2) 6.7 6.5-8.1 [facility] HospitalAlbumin2018-02-02 07:23:00* Test Item Value Reference Range Interpretation Comments Albumin (test code = 1751-7) 3.3 3.5-5.0 L [facility] HospitalGlobulin2018-02-02 07:23:00* Test Item Value Reference Range Interpretation Comments Globulin (test code = 26997-2) 3.4 2.3-3.5 [facility] HospitalAlbumin/Globulin Xlfru8474-39-60 07:23:00 * Test Item Value Reference Range Interpretation Comments Albumin/Globulin Ratio (test code = 1759-0) 1.0 0.8-2.0 [facility] HospitalAlkaline Pisktxahbxs2432-73-87 07:23:00* Test Item Value Reference Range Interpretation Comments Alkaline Phosphatase (test code = 6768-6) 62 40-150 [facility] HospitalTriglycerides Liqlu8912-27-92 07:23:00* Test Item Value Reference Range Interpretation Comments Triglycerides Level (test code = 2571-8) 216 0-149 H [facility] HospitalCholesterol Gambb3055-03-32 07:23:00* Test Item Value Reference Range Interpretation Comments Cholesterol Level (test code = 2093-3) 181 0-199 Less than 200 mg/dL Low Dvpv676 - 239 mg/dL Borderline Blid731 m g/dl and greater High Risk [facility] HospitalLDL Woicgvqakci8429-08-15 07:23:00* Test Item Value Reference Range Interpretation Comments LDL Cholesterol (test code = 2089-1) 109 60-130 [facility] Awimctehcta9085-99-04 07:23:00* Test Item Value Reference Range Interpretation Comments HDL Cholesterol (test code = 2085-9) 29 40-60 L [facility] HospitalCholesterol/HDL Nnlev1106-25-74 07:23:00 * Test Item Value Reference Range Interpretation Comments Cholesterol/HDL Ratio (test code = 9830-1) 6.2 3.0-3.6 H [facility] HospitalTriglycerides Ifkjx8138-87-12 07:23:00* Test Item Value Reference Range Interpretation Comments Triglycerides Level (test code = 2571-8) 216 0-149 H [facility] HospitalCholesterol Olrjk2879-04-45 07:23:00* Test Item Value Reference Range Interpretation Comments Cholesterol Level (test code = 2093-3) 181 0-199 Less than 200 mg/dL Low Rjvh045 - 239 mg/dL Borderline Owxj927 m g/dl and greater High Risk [facility] HospitalLDL Mrlscvavyrm0657-99-89 07:23:00* Test Item Value Reference Range Interpretation Comments LDL Cholesterol (test code = 2089-1) 109 60-130 [facility] Pjiehgaggad2076-16-30 07:23:00* Test Item Value Reference Range Interpretation Comments HDL Cholesterol (test code = 2085-9) 29 40-60 L [facility] HospitalCholesterol/HDL Sqgkv4006-50-38 07:23:00 * Test Item Value Reference Range Interpretation Comments Cholesterol/HDL Ratio (test code = 9830-1) 6.2 3.0-3.6 H [facility] HospitalTriglycerides Jnqls2530-64-92 07:23:00* Test Item Value Reference Range Interpretation Comments Triglycerides Level (test code = 2571-8) 216 0-149 H [facility] HospitalCholesterol Lbxrn5655-93-49 07:23:00* Test Item Value Reference Range Interpretation Comments Cholesterol Level (test code = 2093-3) 181 0-199 Less than 200 mg/dL Low Jikh436 - 239 mg/dL Borderline Rpid870 m g/dl and greater High Risk [facility] HospitalLDL Ssifbjdrxfx1242-51-63 07:23:00* Test Item Value Reference Range Interpretation Comments LDL Cholesterol (test code = 2089-1) 109 60-130 [facility] Jfbxrezvzwv5945-12-91 07:23:00* Test Item Value Reference Range Interpretation Comments HDL Cholesterol (test code = 2085-9) 29 40-60 L [facility] HospitalCholesterol/HDL Ihiwr2014-74-18 07:23:00 * Test Item Value Reference Range Interpretation Comments Cholesterol/HDL Ratio (test code = 9830-1) 6.2 3.0-3.6 H [facility] HospitalTriglycerides Rzunj5816-82-15 07:23:00* Test Item Value Reference Range Interpretation Comments Triglycerides Level (test code = 2571-8) 216 0-149 H [facility] HospitalCholesterol Leojj5185-31-91 07:23:00* Test Item Value Reference Range Interpretation Comments Cholesterol Level (test code = 2093-3) 181 0-199 Less than 200 mg/dL Low Dtwu464 - 239 mg/dL Borderline Fhjc841 m g/dl and greater High Risk [facility] HospitalLDL Mqerdnnvpei0497-80-17 07:23:00* Test Item Value Reference Range Interpretation Comments LDL Cholesterol (test code = 2089-1) 109 60-130 [facility] Niccngqaabj2627-17-16 07:23:00* Test Item Value Reference Range Interpretation Comments HDL Cholesterol (test code = 2085-9) 29 40-60 L [facility] HospitalCholesterol/HDL Atesl5792-41-78 07:23:00 * Test Item Value Reference Range Interpretation Comments Cholesterol/HDL Ratio (test code = 9830-1) 6.2 3.0-3.6 H [facility] HospitalTriglycerides Uomzv3742-78-06 07:23:00* Test Item Value Reference Range Interpretation Comments Triglycerides Level (test code = 2571-8) 216 0-149 H [facility] HospitalCholesterol Emiye9126-51-43 07:23:00* Test Item Value Reference Range Interpretation Comments Cholesterol Level (test code = 2093-3) 181 0-199 Less than 200 mg/dL Low Hpyd923 - 239 mg/dL Borderline Prmp897 m g/dl and greater High Risk [facility] HospitalLDL Hdlvvwzidfo7876-46-29 07:23:00* Test Item Value Reference Range Interpretation Comments LDL Cholesterol (test code = 2089-1) 109 60-[address] [facility] Jnwjbtwdhep1961-69-20 07:23:00* Test Item Value Reference Range Interpretation Comments HDL Cholesterol (test code = 2085-9) 29 40-60 L [facility] HospitalCholesterol/HDL Hoktq4099-87-48 07:23:00 * Test Item Value Reference Range Interpretation Comments Cholesterol/HDL Ratio (test code = 9830-1) 6.2 3.0-3.6 H [facility] HospitalTriglycerides Rpvvd2444-99-45 07:23:00* Test Item Value Reference Range Interpretation Comments Triglycerides Level (test code = 2571-8) 216 0-149 H [facility] HospitalCholesterol Dzwqp5279-20-44 07:23:00* Test Item Value Reference Range Interpretation Comments Cholesterol Level (test code = 2093-3) 181 0-199 Less than 200 mg/dL Low Pgiw430 - 239 mg/dL Borderline Fzog069 m g/dl and greater High Risk [facility] HospitalLDL Dqqydvymgtb0618-81-26 07:23:00* Test Item Value Reference Range Interpretation Comments LDL Cholesterol (test code = 2089-1) 109 60-[address] [facility] [facility]L Jahbfkghdbu8534-85-73 07:23:00* Test Item Value Reference Range Interpretation Comments HDL Cholesterol (test code = 2085-9) 29 40-60 L [facility] HospitalCholesterol/HDL Evtsl8285-32-80 07:23:00 * Test Item Value Reference Range Interpretation Comments Cholesterol/HDL Ratio (test code = 9830-1) 6.2 3.0-3.6 H [facility] HospitalWhite Blood Zrabe8554-35-46 07:08:00* Test Item Value Reference Range Interpretation Comments White Blood Count (test code = 6690-2) 4.69 4.8-10.8 L [facility] HospitalRed Blood Qhmfe6908-93-21 07:08:00* Test Item Value Reference Range Interpretation Comments Red Blood Count (test code = 789-8) 4.53 3.6-5.1 [facility] HospitalHemoglobin2018-02-02 07:08:00* Test Item Value Reference Range Interpretation Comments Hemoglobin (test code = 97602-5) 11.9 12.0-16.0 L [facility] HospitalHematocrit2018-02-02 07:08:00* Test Item Value Reference Range Interpretation Comments Hematocrit (test code = 4544-3) 39.4 34.2-44.1 [facility] HospitalMean Corpuscular Xdtlkq2693-42-35 07:08:00* Test Item Value Reference Range Interpretation Comments Mean Corpuscular Volume (test code = 787-2) 87.0 81-99 [facility] HospitalMean Corpuscular Ahadvqquud2286-47-76 07:08:00* Test Item Value Reference Range Interpretation Comments Mean Corpuscular Hemoglobin (test code = 785-6) 26.3 28-32 L [facility] HospitalMean Corpuscular Hemoglobin Concent 2017-08-25 07:08:00* Test Item Value Reference Range Interpretation Comments Mean Corpuscular Hemoglobin Concent (test code = 786-4) 30.2 31-35 L [facility] HospitalRed Cell Distribution Qnuym2810-30-21 07:08:00* Test Item Value Reference Range Interpretation Comments Red Cell Distribution Width (test code = 58261-3) 14.8 11.7 -14.4 H [facility] HospitalPlatelet Vlexf2349-89-30 07:08:00* Test Item Value Reference Range Interpretation Comments Platelet Count (test code = 777-3) 177 140-360 [facility] HospitalNeutrophils (%) (Auto)2017-08-25 07:08:00 * Test Item Value Reference Range Interpretation Comments Neutrophils (%) (Auto) (test code = 48916-9) 55.5 38.7-80.0 [facility] HospitalLymphocytes (%) (Auto)2017-08-25 07:08:00 * Test Item Value Reference Range Interpretation Comments Lymphocytes (%) (Auto) (test code = 736-9) 28.8 18.0-39.1 [facility] HospitalMonocytes (%) (Auto)2017-08-25 07:08:00* Test Item Value Reference Range Interpretation Comments Monocytes (%) (Auto) (test code = 5905-5) 8.7 4.4-11.3 [facility] HospitalEosinophils (%) (Auto)2017-08-25 07:08:00 * Test Item Value Reference Range Interpretation Comments Eosinophils (%) (Auto) (test code = 713-8) 5.1 0.0-6.0 [facility] HospitalBasophils (%) (Auto)2017-08-25 07:08:00* Test Item Value Reference Range Interpretation Comments Basophils (%) (Auto) (test code = 706-2) 1.3 0.0-1.0 H [facility] HospitalIM GRANULOCYTES %2017-08-25 07:08:00* Test Item Value Reference Range Interpretation Comments IM GRANULOCYTES % (test code = IM GRANULOCYTES %) 0.6 0.0- 1.0 [facility] HospitalNeutrophils # (Auto)2017-08-25 07:08:00* Test Item Value Reference Range Interpretation Comments Neutrophils # (Auto) (test code = 751-8) 2.6 2.1-6.9 [facility] HospitalLymphocytes # (Auto)2017-08-25 07:08:00* Test Item Value Reference Range Interpretation Comments Lymphocytes # (Auto) (test code = 23087-5) 1.4 1.0-3.2 [facility] HospitalMonocytes # (Auto)2017-08-25 07:08:00* Test Item Value Reference Range Interpretation Comments Monocytes # (Auto) (test code = 742-7) 0.4 0.2-0.8 [facility] HospitalEosinophils # (Auto)2017-08-25 07:08:00* Test Item Value Reference Range Interpretation Comments Eosinophils # (Auto) (test code = 711-2) 0.2 0.0-0.4 [facility] HospitalBasophils # (Auto)2017-08-25 07:08:00* Test Item Value Reference Range Interpretation Comments Basophils # (Auto) (test code = 704-7) 0.1 0.0-0.1 [facility] HospitalAbsolute Immature Granulocyte (auto 2017-08-25 07:08:00* Test Item Value Reference Range Interpretation Comments Absolute Immature Granulocyte (auto (joseph t code = Absolute Immature Granulocyte (auto) 0.03 0-0.1 [facility] HospitalCreatine Kzzfoy5071-01-12 01:09:00* Test Item Value Reference Range Interpretation Comments Creatine Kinase (test code = 2157-6) 41 29-168 [facility] HospitalCreatine Kinase FB8900-76-69 01:09:00* Test Item Value Reference Range Interpretation Comments Creatine Kinase MB (test code = 00821-0) 1.30 0.00-5.00 [facility] HospitalTroponin T6265-77-13 01:09:00* Test Item Value Reference Range Interpretation Comments Troponin I (test code = 78023-0) 0.006 0-0.300 [facility] HospitalHemoglobin A1c Wkgzlry8116-40-75 18:39:00 * Test Item Value Reference Range Interpretation Comments Hemoglobin A1c Percent (test code = Hemoglobin A1c Percent) 7.6 4.0-7.0 H [facility] HospitalHemoglobin A1c Anrhzdn2785-57-75 18:39:00 * Test Item Value Reference Range Interpretation Comments Hemoglobin A1c Percent (test code = Hemoglobin A1c Percent) 7.6 4.0-7.0 H [facility] HospitalHemoglobin A1c Jftjnvc8215-34-51 18:39:00 * Test Item Value Reference Range Interpretation Comments Hemoglobin A1c Percent (test code = Hemoglobin A1c Percent) 7.6 4.0-7.0 H [facility] HospitalHemoglobin A1c Ffpztgm4063-06-95 18:39:00 * Test Item Value Reference Range Interpretation Comments Hemoglobin A1c Percent (test code = Hemoglobin A1c Percent) 7.6 4.0-7.0 H [facility] HospitalHemoglobin A1c Lgbozsa7463-28-91 18:39:00 * Test Item Value Reference Range Interpretation Comments Hemoglobin A1c Percent (test code = Hemoglobin A1c Percent) 7.6 4.0-7.0 H [facility] HospitalHemoglobin A1c [id number] 18:39:00 * Test Item Value Reference Range Interpretation Comments Hemoglobin A1c Percent (test code = Hemoglobin A1c Percent) 7.6 4.0-7.0 [facility] [id number] 18:39:00 * Test Item Value Reference Range Interpretation Comments Hemoglobin A1c Percent (test code = Hemoglobin A1c Percent) 7.6 4.0-7.0 H [facility] HospitalHemoglobin A1c [id number] 18:39:00 * Test Item Value Reference Range Interpretation Comments Hemoglobin A1c Percent (test code = Hemoglobin A1c Percent) 7.6 4.0-7.0 H [facility] HospitalH[facility] A1c [id number] 18:39:00 * Test Item Value Reference Range Interpretation Comments Hemoglobin A1c Percent (test code = Hemoglobin A1c Percent) 7.6 4.0-7.0 H [facility] HospitalHemoglobin A1c [id number] 18:39:00 * Test Item Value Reference Range Interpretation Comments Hemoglobin A1c Percent (test code = Hemoglobin A1c Percent) 7.6 4.0-7.0 H [facility] HospitalUrine [id number] 07:50:00* Test Item Value Reference Range Interpretation Comments Urine WBC (test code = 5821-4) 0-5 0-5 [facility] HospitalU[facility] [id number] 07:50:00* Test Item Value Reference Range Interpretation Comments Urine RBC (test code = 63228-2) 0-5 0-5 [facility] HospitalUrine Klsduxrz8458-16-61 07:50:00* Test Item Value Reference Range Interpretation Comments Urine Bacteria (test code = 93277-1) FEW NONE [facility] HospitalU[facility] Epithelial [id number] 07:50:00 * Test Item Value Reference Range Interpretation Comments Urine Epithelial Cells (test code = 87635-3) FEW NONE [facility] HospitalB-Type Natriuretic Xhqxfoq9837-29-59 07:47:00* Test Item Value Reference Range Interpretation Comments B-Type Natriuretic Peptide (test code = 18992-1) 17.8 0-100 [facility] HospitalThyroid Stimulating Hormone (TSH) 2017-08-24 07:47:00* Test Item Value Reference Range Interpretation Comments Thyroid Stimulating Hormone (TSH) (test code = 28693-2) 1.123 0.350-4.940 [facility] HospitalInfluenza Virus Types A,B Antigen 2017-08-24 07:39:00* Test Item Value Reference Range Interpretation Comments Influenza Virus Types A,B Antigen (test code = 41535-5) NEGATIVE NEGATIVE [facility] HospitalMagnesium [id number] 07:32:00* Test Item Value Reference Range Interpretation Comments Magnesium Level (test code = 24815-0) 2.0 1.3-2.1 [facility] HospitalMagnesium Bqnvb9414-40-22 07:32:00* Test Item Value Reference Range Interpretation Comments Magnesium Level (test code = 13524-7) 2.0 1.3-2.1 [facility] HospitalMagnesium [id number] 07:32:00* Test Item Value Reference Range Interpretation Comments Magnesium Level (test code = 41912-5) 2.0 1.3-2.1 [facility] HospitalProthrombin [id number] 07:19:00* Test Item Value Reference Range Interpretation Comments Prothrombin Time (test code = 5902-2) 13.0 11.9-14.5 [facility] HospitalProthromb Time International Ratio 2017-08-24 07:19:00* Test Item Value Reference Range Interpretation Comments Prothromb Time International Ratio (test code = 6301-6) 0.94 Oral Anticoagulant Therapy INR Values:1. Low Intensity Therapy 1.5 - 2.02 . Moderate Intensity Therapy 2.0 - 3.03. High Intensity Therapy(1) 2.5 - 3. 54. High Intensity Therapy(2) 3.0 - 4.05. Panic Value INR > 5.0 [facility] HospitalActivated Partial Thromboplast Time 2017-08-24 07:19:00* Test Item Value Reference Range Interpretation Comments Activated Partial Thromboplast Time (test code = 36041-2) 25.1 23.8-35.5 [facility] HospitalUrine Wyhvy5471-67-17 07:18:00* Test Item Value Reference Range Interpretation Comments Urine Color (test code = 5778-6) YELLOW YELLOW [facility] HospitalUrine Hgkvalj1321-05-93 07:18:00* Test Item Value Reference Range Interpretation Comments Urine Clarity (test code = 43115-1) CLEAR CLEAR [facility] HospitalUrine Specific Flqqdaw7565-09-71 07:18:00 * Test Item Value Reference Range Interpretation Comments Urine Specific [place] (test code = 5811-5) 1.025 1.010-1.02 5 [facility] HospitalUrine [id number] 07:18:00* Test Item Value Reference Range Interpretation Comments Urine pH (test code = 97299-3) 5 5-7 [facility] HospitalUrine Leukocyte Vbdsluin4726-06-88 07:18:00* Test Item Value Reference Range Interpretation Comments Urine Leukocyte Esterase (test code = 5799-2) NEGATIVE NEGATIVE [facility] HospitalUrine Bqhmzwq7610-13-09 07:18:00* Test Item Value Reference Range Interpretation Comments Urine Nitrite (test code = 48057-6) NEGATIVE NEGATIVE [facility] HospitalUrine Kdonuld3371-48-29 07:18:00* Test Item Value Reference Range Interpretation Comments Urine Protein (test code = 5804-0) NEGATIVE NEGATIVE [facility] HospitalUrine Glucose (UA)2017-08-24 07:18:00* Test Item Value Reference Range Interpretation Comments Urine Glucose (UA) (test code = 2349-9) 3+ NEGATIVE H [facility] HospitalUrine Xdkzlee0563-64-77 07:18:00* Test Item Value Reference Range Interpretation Comments Urine Ketones (test code = 98239-9) NEGATIVE NEGATIVE [facility] HospitalUrine Fajdhgsjzgwi5698-57-32 07:18:00* Test Item Value Reference Range Interpretation Comments Urine Urobilinogen (test code = 30456-3) 0.2 0.2-1 [facility] HospitalUrine Gcbfrskve5634-84-84 07:18:00* Test Item Value Reference Range Interpretation Comments Urine Bilirubin (test code = 1978-6) NEGATIVE NEGATIVE [facility] HospitalUrine Qkxou9045-81-78 07:18:00* Test Item Value Reference Range Interpretation Comments Urine Blood (test code = 42318-9) NEGATIVE NEGATIVE [facility] HospitalUS RENAL RETROPERITONEAL COMP [place] [address] Patient Name: KALYANI TALAVERA MR #: [id number] : 1955 Age/Sex: 62/F Req #: [id number] Adm Physician: BENJAMIN MASTERS MD Ordered by: BENJAMIN MASTERS MD Report #: [id number] Locat ion: [facility] Room/Bed: [place] [address] Procedure: [id number] U S/US RENAL RETROPERITONEAL COMP Exam Date: [...] TO: BENJAMIN MASTERS MD CT BRAIN WO [place] [address] Patient Name: KALYANI TALAVERA MR #: [id number] : 1955 Age/Sex: 62/F Req #: [id number] Adm Physician: Ordered by: FLO TOLBERT MD Report #: [id number] Location: ER Room/Bed: Procedure: [id number] CT/CT BRAIN WO Exam Date: Exam Time: [...] TO: Treasure TOLBERT MD CHEST 2 VIEWS [place] [address] Patient Name: KALYANI TALAVERA MR #: [id number] : 1955 Age/Sex: 62/F Req #: [id number] Adm Physician: Ordered by: FLO TOLBERT MD Report #: [id number] Location: ER Room/Bed: Procedure: [id number] DX/CHEST 2 VIEWS Exam Date: 12/23/17 Exam [...] FLO TOLBERT MD KNEE LEFT THREE VIEWS [place] [address] [place] [address] Patient Name: KALYANI TALAVERA MR #: [id number] : 1955 Age/Sex: 62/F Req #: [id number] Adm Physician: Ordered by: JACQUES JANE MD Report #: [id number] Location: ER Room/Bed: Procedure: [id number] DX/KNEE LEFT THREE VIE WS Exam Date: 10/31/17 Exam Time: 0 REPORT STATUS: Signed EXAM: KNEE LEFT THREE [...] JACQUES JANE MD PELVIS AP 1-2 VIEWS [place] [address] Patient Name: KALYANI TALAVERA MR #: [id number] : 1955 Age/Sex: 62/F Req #: [id number] Adm Physician: Ordered by: JACQUES JANE MD Report #: [id number] Location: ER Room/Bed: Procedure: DX/PELVIS AP 1-2 VIEWS Exam Date: 10/31/17 [...] TO: JACQUES JANE MD CHEST 2 VIEWS [place] [address] Patient Name: KALYANI TALAVERA MR #: [id number] : 1955 Age/Sex: 62/F Req #: [id number] Adm Physician: Ordered by: FLO TOLBERT MD Report #: [id number] Location: ER Room/Bed: Procedure: [id number] DX/CHEST 2 VIEWS Exam Date: 10/12/17 Exam Time: 0040 REPORT STATUS: Signed EXAM: CHEST 2 VIEWS, [...] COPY TO: FLO TOLBERT MD FOOT RIGHT [place] [address] Patient Name: KALYANI TALAVERA MR #: [id number] : 1955 Age/Sex: 62/F Req #: [id number] Adm Physician: Ordered by: JEFFREY MCDUFFIE MD Report #: [id number] Location: ER Room/Bed: Procedure: [id number] DX/FOOT RIGHT COMPLETE Exa m Date: 10/11/17 [...] at 8:39 Dictated By: JACINDA EASTMAN MD 0839 Transcribed By: ZOLTAN on 10/11/17 0839 COPY TO: JEFFREY MCDUFFIE MD KNEE LEFT THREE VIEWS [place] [address] Patient Name: KALYANI TALAVERA MR #: [id number] : 1955 Age/Sex: 62/F Req #: [id number] Adm Physician: Ordered by: JEFFREY MCDUFFIE MD Report #: [id number] Location: ER Room/Bed: Procedure: [id number] DX/KNEE LEFT THREE VIEWS E xam Date: [...] Christiane d By: JACINDA EASTMAN MD on 10/11/17 0840 Transcribed By: ZOLTAN on 10/11/17 0840 COPY TO: JEFFREY MCDUFFIE MD CT CHEST WO [place] [address] Patient Name: KALYANI TALAVERA MR #: [id number] : 1955 Age/Sex: 62/F Req #: [id number] Adm Physician: Ordered by: RAFAELA ASTUDILLO NP Report #: [id number] Location: ER Room/Bed: Procedure: [id number] CT/CT CHEST WO Exam Date: Exam Time: [...] on 09/25/17 1307 COPY TO: RAFAELA ASTUDILLO BUTTONHOLE MARKER CHEST SINGLE (PORTABLE) [place] [address] Patient Name: KALYANI TALAVERA MR #: [id number] : 1955 Age/Sex: 62/F Req #: [id number] Adm Physician: Ordered by: RAFAELA ASTUDILLO BUTTONHOLE MARKER Report #: [id number] Location: ER Room/Bed: Procedure: [id number] DX/CHEST SINGLE (PORTABLE) E xam Date: 09/25/17 [...] MD 110 Transcribed By: ZOLTAN on 09/25/17 110 COPY TO: RAFAELA ASTUDILLO BUTTONHOLE MARKER CHEST 2 VIEWS [place] [address] Patient Name: KALYANI TALAVERA MR #: [id number] : 1955 Age/Sex: 62/F Req #: [id number] Adm Physician: Ordered by: FLO TOLBERT MD Report #: [id number] Location: ER Room/Bed: Procedure: [id number] DX/CHEST 2 VIEWS Exam Date: Exam Time: 0715 REPORT STATUS: Signed PROCEDURE: CHEST 2 VIEWS TECHNIQUE: PA and lateral chest totaling 2 radio graphs INDICATION: Shortness of breath and syncope COMPARISON: [facility], DX, CHEST 2 VIEWS, 10/15/2016, 23:42. FINDINGS: Bilate ral interstitial opacity, cardiomegaly and central vascular prominence. No si zable pleural effusion. Stable elevation of the right hemidiaphragm. Intact s [place]. CONCLUSION: Cardiomegaly with pulmonary edema. Dictated by: Lachelle Munoz M.D. on 08/24/2017 at 7:51 Electronica lly approved by: Lachelle Munoz M.D. on 08/24/2017 at 7:51 Dictated By: LACHELLE MUNOZ MD 075 Transcribed By: ZOLTAN on 08/24/17 0751 COPY TO: AILEEN TOLBERT MD CT CERVICAL SPINE WO [place] [address] Patient Name: KALYANI TALAVERA MR #: [id number] : 1955 Age/Sex: 62/F Req #: [id number] Adm Physician: Ordered by: FLO TOLBERT MD Report #: [id number] Location: ER Room/Bed: Procedure: [id number] CT/CT CERVICAL SPINE WO Exam D ate: [...] 7:54 AM Dictated By: RILEY WYNN MD 0754 Transcribed By : JIM on 08/24/17 0754 COPY TO: FLO TOLBERT MD CT BRAIN WO [place] [address] Patient Name: KALYANI TALAVERA MR #: [id number] : 0 1955 Age/Sex: 62/F Req #: [id number] Adm Physician: Ordered by: FLO TOLBERT MD Report #: [id number] Location: ER Room/Bed: Procedure: [id number] CT/CT BRAIN WO Exam Date: 08/10 Exam [...] on 08/24/2017 7:54 AM Dictated By: RILEY brooks Signed By: RILEY WYNN MD on 08/24/17 8151 Transcribed By: JIM on 08/24/17 2730 COPY TO: FLO TOLBERT MD
[2020-02-26] MEDS: METRONIDAZOLE 500MG/NS 100ML 100 ML IV SCH ×2 (18:30→23:28)
[2020-02-26] MEDS: CIPROFLOXACIN 400 MG/D5W 200ML 200 ML IV SCH (18:30)
[2020-02-26 20:00] VITALS: BP 177/64
--- NOTE | 2020-02-26 20:00 | NUR ---
Received change of shift report from AM nurse. Walking rounds completed.
[2020-02-26 21:00] VITALS: BP 177/64
[2020-02-26] MEDS: INSULIN LISPRO 100 UNIT/1 ML 3ML VIAL SQ SCH (21:00)
--- NOTE | 2020-02-26 21:03 | NUR ---
Consent signed for PICC line placement. PICC in waiting for ok to use.
--- NOTE | 2020-02-26 21:04 | NUR ---
Patient placed on 4L o2. Patient on 4L at home. Also on cpap at home. Patient will get family to bring equipment.
--- NOTE | 2020-02-26 21:51 | Diagnostic Imaging Report ---
EXAMINATION: CHEST XRAY LINE PLACEMENT one view INDICATION: ^PICC line placement ^[id number] ^[id number] COMPARISON: Radiograph from today FINDINGS: See impression. IMPRESSION: The tip of a right PICC projects over the distal SVC. No pneumothorax. Otherwise, unchanged exam. Signed by: Jaspal Macedo MD on 02/26/2020 9:48 PM
[2020-02-26 22:22] LABS: FERRITIN 12.01 ng/mL (4.63-204.00)
[2020-02-27] VITALS (7 sets, daily range): BP systolic 149–172; BP diastolic 61–90
[2020-02-27] MEDS: HYDROMORPHONE 1MG/1ML INJ IV PRN ×3 (00:15→20:20)
[2020-02-27] MEDS: ONDANSETRON HCL INJ 2MG/ML 2ML 2 MG/ML VIAL IV PRN ×3 (00:16→20:20)
[2020-02-27] MEDS: METRONIDAZOLE 500MG/NS 100ML 100 ML IV SCH ×3 (05:24→17:51)
[2020-02-27] MEDS ORDERED: CITRATE OF MAGNESIA 300ML BOTTLE PO ONE ×2 (06:00→09:00)
[2020-02-27 06:57] LABS: BASOPHILS % 0.5 % (0.0-1.0); EOSINOPHILS # (AUTO) 0.1 (0.0-0.4); EOSINOPHILS % 1.8 % (0.0-6.0); HEMATOCRIT 28.1 % (34.2-44.1); LYMPHOCYTES # (AUTO) 0.8 (1.0-3.2); LYMPHOCYTES % 13.7 % (18.0-39.1); MEAN CORPUSCULAR HEMOGLOBIN 21.4 pg (28-32); MEAN CORPUSCULAR HGB CONC 28.5 g/dL (31-35); MEAN CORPUSCULAR VOLUME 75.3 fL (81-99); MONOCYTES # (AUTO) 0.3 (0.2-0.8); MONOCYTES % 6.2 % (4.4-11.3); NEUTROPHILS # (AUTO) 4.1 (2.1-6.9); PLATELET COUNT 140 x10e3/uL (140-360); RED BLOOD COUNT 3.73 x10e6/uL (3.6-5.1); RED CELL DISTRIBUTION WIDTH 16.7 % (11.7-14.4)
[2020-02-27 07:05] LABS: ALANINE AMINOTRANSFERASE 15 IU/L (0-55); ALBUMIN 2.8 g/dL (3.5-5.0); ALBUMIN/GLOBULIN RATIO 0.9 (0.8-2.0); ALKALINE PHOSPHATASE 108 IU/L (40-150); ANION GAP 12.6 mmol/L (8-16); BLOOD UREA NITROGEN 16 mg/dL (7-26); BUN/CREATININE RATIO 19 (6-25); CALCIUM 7.9 mg/dL (8.4-10.2); CARBON DIOXIDE 22 mmol/L (22-29); CHLORIDE 107 mmol/L (98-107); CREATININE, SERUM 0.85 mg/dL (0.57-1.11); EST GLOMERULAR FILTRATION RATE > 60 ML/MIN (60-); POTASSIUM 4.6 mmol/L (3.5-5.1); SODIUM 137 mmol/L (136-145)
[2020-02-27 07:10] LABS: GLUCOSE 403 mg/dL (74-118)
[2020-02-27] MEDS: CYANOCOBALAMIN INJ 1,000 MCG/ML VIAL IM SCH (09:16)
[2020-02-27] MEDS: IRON SUCROSE 100 MG in SODIUM CHLORIDE 0.9% 100 ML 100 ML IV SCH (09:16)
[2020-02-27] MEDS: CIPROFLOXACIN 400 MG/D5W 200ML 200 ML IV SCH ×2 (09:17→20:19)
[2020-02-27] MEDS: INSULIN LISPRO 100 UNIT/1 ML 3ML VIAL SQ SCH ×6 (09:20→21:00)
[2020-02-27] MEDS ORDERED: BISACODYL 5 MG TAB EC PO ONE ×2 (10:00→10:30)
[2020-02-27 15:07] LABS: C DIFFICILE TOXIN A&B AMP PROB NEGATIVE (NEGATIVE)
--- NOTE | 2020-02-27 15:45 | NUR ---
Patient left with transport for colonoscopy at 1545. Addendum: 02/27/20 at 1813 by Halima Rosales RN Patient returned from colonoscopy at 1800. Patient has new orders for clear liquid diet. Was told they found left ischemic colitis. Patient was told to follow up with Dr. Yelitza Coronado in 1 week.
[2020-02-27 17:32] LABS: WBC,FECAL (FECAL LACTOFERRIN) POSITIVE (NEGATIVE)
--- NOTE | 2020-02-27 19:10 | Operative Report ---
DATE OF PROCEDURE: 02/27/2020 SURGEON: Dejon Coronado MD PROCEDURE: Colonoscopy with biopsies. INDICATION FOR COLONOSCOPY: Rectal bleeding. MEDICATIONS: The patient was done under MAC, please see anesthesiologist's note. PROCEDURE IN DETAIL: With the patient in left lateral decubitus position, a flexible fiberoptic Olympus colonoscope was inserted into the rectum with ease and advanced all the way to the cecum. It was then withdrawn slowly and whatever was visualized, the mucosa overlying the cecum, ascending colon, transverse colon appeared to be grossly within normal limits. Mucosa overlying the descending colon and the proximal sigmoid colon was diffusely ulcerated and biopsies were obtained. The rest of the sigmoid colon as well as the rectum appeared to be within normal limits. The scope was subsequently withdrawn. The patient tolerated the procedure well. The scope was then retroflexed into the distal rectum. IMPRESSION: Ulcerated descending and proximal sigmoid colon. Findings compatible with ischemic colitis. PLAN: 1. Follow up histology. 2. Continue IV antibiotics. 3. Continue clear liquid diet. 4. The patient will need a followup colonoscopy in about 2 to 3 months to document resolution of her ischemic colitis. Dejon Coronado MD [facility] [place] /[id number] cc: Lucille Huerta MD
--- NOTE | 2020-02-27 19:32 | NUR ---
Received change of shift report from AM nurse. Walking rounds completed.
[2020-02-27] MEDS: INSULIN GLARGINE 100 UNITS/ML VIAL SQ SCH (21:00)
[2020-02-27] MEDS ORDERED: INSULIN GLARGINE SQ SCH (21:00)
[2020-02-27] MEDS ORDERED: MIDAZOLAM HCL 2 MG/2 ML VIAL ONE (21:31)
[2020-02-27] MEDS ORDERED: FENTANYL CITRATE/PF 100MCG/2 ML INJ ONE (21:31)
[2020-02-28] VITALS (8 sets, daily range): BP systolic 143–170; BP diastolic 67–99
--- NOTE | 2020-02-28 | NUR ---
Patient had BM x2. Pain and nausea meds x2. Patient resting quitly at this time.
[2020-02-28] MEDS: IRON SUCROSE 100 MG in SODIUM CHLORIDE 0.9% 100 ML 100 ML IV SCH (04:59)
[2020-02-28] MEDS: METRONIDAZOLE 500MG/NS 100ML 100 ML IV SCH ×4 (04:59→18:02)
[2020-02-28] MEDS: ONDANSETRON HCL INJ 2MG/ML 2ML 2 MG/ML VIAL IV PRN ×2 (05:16→20:33)
[2020-02-28] MEDS: HYDROMORPHONE 1MG/1ML INJ IV PRN ×2 (05:16→20:32)
--- NOTE | 2020-02-28 07:10 | NUR ---
PT IN BED SLEEPING,NO S/S DISCOMFORT.
--- NOTE | 2020-02-28 07:12 | NUR ---
Patient resting quitly at this time.
[2020-02-28] MEDS: INSULIN LISPRO 100 UNIT/1 ML 3ML VIAL SQ SCH ×8 (08:00→21:00)
[2020-02-28] MEDS: CIPROFLOXACIN 400 MG/D5W 200ML 200 ML IV SCH ×2 (09:00→20:32)
[2020-02-28] MEDS: CYANOCOBALAMIN INJ 1,000 MCG/ML VIAL IM SCH (09:00)
--- NOTE | 2020-02-28 09:52 | Progress Note ---
DATE: 02/28/2020 SUBJECTIVE: Ms. Painter is a 64-year-old female with history of diabetes, hypertension, hyperlipidemia, COPD, CHF, depression, came to the emergency room complaining of 2 days of bright red rectal bleeding that came with stools and she also has some epigastric pain. She had a colonoscopy done yesterday that showed colitis. The patient is on IV antibiotics. PHYSICAL EXAMINATION: GENERAL: Today, she is awake and alert. She is still complaining of abdominal pain. VITAL SIGNS: Temperature is 97.7, blood pressure 165/67. HEART: Regular rate. LUNGS: Decreased breath sounds. ABDOMEN: Distended and soft with mild diffuse tenderness. LABORATORY DATA: On the blood work; white count is 5.46, hemoglobin 8, hematocrit 28.1, platelet 406, creatinine 0.85, glucose is 463. COVID test so far negative. C difficile negative. Another one is pending. Stool for O and P are pending. Abdominal and pelvic CT showed mild ascending colon and proximal sigmoid colon thickening consisting with colitis. ASSESSMENT: 1. Rectal bleeding probably due to colitis. 2. Abdominal pain due to colitis. 3. Anemia secondary to GI bleed. 4. Diabetes type 2 with hyperglycemia. 5. Hypertension. 6. Hyperlipidemia. PLAN: At present time is to start her on a clear liquid diet. Continue IV antibiotics. Recheck C difficile to rule out any C difficile colitis. Continue ADA diet. Continue sliding scale with insulin. Continue other home medications. She is also on Zofran p.r.n. for nausea. All this was discussed in detail with the patient. All questions were answered to satisfaction. I spent more than 30 minutes examining patient, reviewing overnight event, lab results, and discussing plan of care with her. MD MARLY Schmidt/MODL /[id number]
[2020-02-28] MEDS ORDERED: MIDAZOLAM HCL 2 MG/2 ML VIAL ONE (11:34)
[2020-02-28] MEDS ORDERED: FENTANYL CITRATE/PF 100MCG/2 ML INJ ONE (11:34)
[2020-02-28] MEDS ORDERED: PROPOFOL IV EMULSION 10 MG/ML 20 ML VIAL ONE (11:34)
[2020-02-28] MEDS ORDERED: GLUCAGON FOR INJ 1 MG VIAL ONE (11:34)
--- NOTE | 2020-02-28 12:05 | NUR ---
glucose 170 insulin given as ordered
[2020-02-28] MEDS ORDERED: SODIUM CHLORIDE 0.9% 250ML 250 ML ONE (13:21)
[2020-02-28 14:30] LABS: C DIFFICILE TOXIN A&B AMP PROB NEGATIVE (NEGATIVE)
--- NOTE | 2020-02-28 18:03 | NUR ---
PT UP IN BED DENIES PAIN,NO DISTRESS NTOED.MULTIPLE LIQUID STOOLS ,NO BLLOD NOTED
--- NOTE | 2020-02-28 18:35 | NUR ---
PT REQUESTINGINSULIN.GAVE 6 UNITS
--- NOTE | 2020-02-28 18:59 | NUR ---
Received change of shift report from AM nurse.
[2020-02-28] MEDS: INSULIN GLARGINE 100 UNITS/ML VIAL SQ SCH (21:00)
[2020-02-29] VITALS (8 sets, daily range): BP systolic 129–153; BP diastolic 45–88
--- NOTE | 2020-02-29 | NUR ---
Patient received pain and nausea meds as ordered by MD.
[2020-02-29] MEDS: ONDANSETRON HCL INJ 2MG/ML 2ML 2 MG/ML VIAL IV PRN ×2 (02:55→10:51)
[2020-02-29] MEDS: HYDROMORPHONE 1MG/1ML INJ IV PRN ×3 (02:55→22:26)
--- NOTE | 2020-02-29 04:29 | NUR ---
Changed PICC line dressing. Patient tolerated well.
[2020-02-29] MEDS: METRONIDAZOLE 500MG/NS 100ML 100 ML IV SCH ×4 (06:00→21:53)
[2020-02-29] MEDS: IRON SUCROSE 100 MG in SODIUM CHLORIDE 0.9% 100 ML 100 ML IV SCH (06:00)
[2020-02-29 06:58] LABS: BASOPHILS % 0.4 % (0.0-1.0); EOSINOPHILS # (AUTO) 0.1 (0.0-0.4); EOSINOPHILS % 2.7 % (0.0-6.0); HEMATOCRIT 24.9 % (34.2-44.1); LYMPHOCYTES # (AUTO) 0.9 (1.0-3.2); LYMPHOCYTES % 16.3 % (18.0-39.1); MEAN CORPUSCULAR HEMOGLOBIN 21.6 pg (28-32); MEAN CORPUSCULAR HGB CONC 28.1 g/dL (31-35); MEAN CORPUSCULAR VOLUME 76.9 fL (81-99); MONOCYTES # (AUTO) 0.3 (0.2-0.8); MONOCYTES % 5.7 % (4.4-11.3); NEUTROPHILS # (AUTO) 3.8 (2.1-6.9); PLATELET COUNT 152 x10e3/uL (140-360); RED BLOOD COUNT 3.24 x10e6/uL (3.6-5.1); RED CELL DISTRIBUTION WIDTH 17.1 % (11.7-14.4)
[2020-02-29] MEDS: CYANOCOBALAMIN INJ 1,000 MCG/ML VIAL IM SCH (09:03)
[2020-02-29] MEDS: INSULIN LISPRO 100 UNIT/1 ML 3ML VIAL SQ SCH ×7 (09:04→21:00)
[2020-02-29] MEDS: CIPROFLOXACIN 400 MG/D5W 200ML 200 ML IV SCH ×2 (10:44→22:08)
[2020-02-29] MEDS ORDERED: FUROSEMIDE INJ 10 MG/ML 2 ML VIAL IV ONE (11:45)
[2020-02-29] MEDS ORDERED: SODIUM CHLORIDE 0.9% 250ML 250 ML IV ONE (11:45)
[2020-02-29] MEDS ORDERED: ACETAMINOPHEN 325 MG TAB PO PRN (11:45)
--- NOTE | 2020-02-29 13:59 | NUR ---
1st unit PRBC started and no reaction through 15 min. will monitor status closely.
--- NOTE | 2020-02-29 15:19 | Progress Note ---
DATE: Internal Medicine Progress Note SUBJECTIVE: The patient is doing fair today. She still has some blood in the stools. PHYSICAL EXAMINATION: HEART: Showed regular rhythm. Normal S1, S2 sound. LUNGS: Clear bilaterally. ABDOMEN: Soft. EXTREMITIES: Show no evidence of edema. VITAL SIGNS: Blood pressure 145/65, temperature 97.8, heart rate 60 per minute, respiratory rate 20 per minute, and O2 saturation 100% on room. LABORATORY DATA: On the blood work, we have CBC; white blood count 5.22, hemoglobin 7.0, hematocrit 24.9, platelet count 152,000. Blood sugar is 79. COVID test negative. C-difficile test is negative. She had a CT of the abdomen and pelvis, which showed mild ascending colon and proximal sigmoid colon wall thickening with associated pericolonic stranding that can be seen in setting of colitis. No free air or focal fluid collection. IMPRESSION: 1. Rectal bleeding, secondary to colitis. 2. Colitis. 3. Acute anemia, secondary to rectal bleeding. 4. Chronic obstructive pulmonary disease exacerbation. 5. Uncontrolled diabetes mellitus type 2 with diabetic neuropathy. 6. Hypertension. 7. Obesity. 8. Pulmonary hypertension. PLAN: Plan of treatment is going to get 2 units of blood transfusion because of a drop in the hemoglobin. She is going to continue ciprofloxacin 500 g IV twice a day. She is getting Venofer 100 mg IV once a day, metronidazole 500 g IV q.6 hours, Tylenol 650 mg q.6 hours as needed for more pain, vitamin B12 1000 mcg IM daily, furosemide before blood transfusion. Monitor blood sugar before meals and at bedtime, Dilaudid 1 mg IV q.6 hours as needed for abdominal pain, Lantus 60 units at bedtime, Humalog 30 units three times a day, Zofran 4 mg IV q.4 hours as needed for nausea. Now, we are going to add albuterol and Atrovent also which is DuoNeb every 4 hours as needed for shortness of breath. Taking Revatio 20 mg three times a day also because of pulmonary hypertension. Dr. Dejon Coronado had seen the patient from the Gastroenterology point of view. Time spent 45 minutes. MD ALVARO Jose/MODL /[id number]
[2020-02-29] MEDS: SILDENAFIL CITRATE 20 MG TAB PO SCH ×2 (17:46→22:04)
[2020-02-29] MEDS: ALBUTEROL/IPRATROPIUM 3 ML NEB NEB PRN (20:25)
[2020-02-29] MEDS: INSULIN GLARGINE 100 UNITS/ML VIAL SQ SCH (21:00)
[2020-03-01] VITALS (8 sets, daily range): BP systolic 130–160; BP diastolic 50–74
[2020-03-01] MEDS: METRONIDAZOLE 500MG/NS 100ML 100 ML IV SCH ×4 (01:39→17:03)
[2020-03-01] MEDS: ALBUTEROL/IPRATROPIUM 3 ML NEB NEB PRN (04:34)
[2020-03-01 06:25] LABS: BASOPHILS % 0.7 % (0.0-1.0); EOSINOPHILS # (AUTO) 0.2 (0.0-0.4); EOSINOPHILS % 2.9 % (0.0-6.0); HEMATOCRIT 31.1 % (34.2-44.1); HEMOGLOBIN 9.5 g/dL (12.0-16.0); LYMPHOCYTES # (AUTO) 0.7 (1.0-3.2); LYMPHOCYTES % 13.2 % (18.0-39.1); MEAN CORPUSCULAR HEMOGLOBIN 25.5 pg (28-32); MEAN CORPUSCULAR HGB CONC 30.5 g/dL (31-35); MEAN CORPUSCULAR VOLUME 83.6 fL (81-99); MONOCYTES # (AUTO) 0.3 (0.2-0.8); MONOCYTES % 5.8 % (4.4-11.3); NEUTROPHILS # (AUTO) 4.1 (2.1-6.9); NEUTROPHILS % 74.9 % (38.7-80.0); PLATELET COUNT 125 x10e3/uL (140-360); RED BLOOD COUNT 3.72 x10e6/uL (3.6-5.1); RED CELL DISTRIBUTION WIDTH 21.5 % (11.7-14.4)
[2020-03-01] MEDS: DIPHENOXYLATE/ATROPINE TAB PO PRN ×2 (06:27→16:13)
[2020-03-01] MEDS: IRON SUCROSE 100 MG in SODIUM CHLORIDE 0.9% 100 ML 100 ML IV SCH (06:27)
[2020-03-01] MEDS: HYDROMORPHONE 1MG/1ML INJ IV PRN ×2 (06:35→17:55)
[2020-03-01] MEDS: INSULIN LISPRO 100 UNIT/1 ML 3ML VIAL SQ SCH ×7 (07:30→21:00)
[2020-03-01] MEDS: CIPROFLOXACIN 400 MG/D5W 200ML 200 ML IV SCH ×2 (09:55→21:28)
[2020-03-01] MEDS: CYANOCOBALAMIN INJ 1,000 MCG/ML VIAL IM SCH (09:55)
[2020-03-01] MEDS: SILDENAFIL CITRATE 20 MG TAB PO SCH ×3 (09:55→21:28)
--- NOTE | 2020-03-01 13:58 | Progress Note ---
DATE: Internal Medicine Progress Note SUBJECTIVE: The patient is sleeping comfortably. PHYSICAL EXAMINATION: VITAL SIGNS: Blood pressure 154/68, temperature 97.7, heart rate 60 per minute, respiratory rate 20 per minute, and oxygen saturation 98%. ABDOMEN: Soft and nontender. No distention. No visceromegaly. EXTREMITIES: Show no evidence of edema. LABORATORY DATA: On the CBC; white blood count 5.53, hemoglobin 9.5, hematocrit 31.1, and platelet count 225,000. Last blood sugar is 248. FINAL IMPRESSION: 1. Rectal bleeding. 2. Colitis. 3. Acute anemia. 4. Chronic obstructive pulmonary disease exacerbation. 5. Uncontrolled diabetes mellitus type 2 with diabetic neuropathy. 6. Hypertension. 7. Obesity. 8. Pulmonary hypertension. PLAN OF TREATMENT: Going to continue current medication regimen, which includes ciprofloxacin 500 mg IV twice a day, iron sucrose 100 mg IV once a day, metronidazole 500 mg IV q.6 hours, Tylenol 650 mg q.6 hours as needed for mild pain, albuterol and Atrovent q.4 hours as needed for shortness of breath, and vitamin B12 1000 mcg IM daily. Continue Lomotil 2 tablets q.6 hours as needed for diarrhea. Continue to monitor blood sugar before meals and at bedtime. Continue Dilaudid 1 mg IV q.6 hours as needed for abdominal pain, Lantus 60 units at bedtime, Humalog 30 units with meals, Revatio 20 mg 3 times a day for pulmonary hypertension, and Zofran 4 mg IV q.4 hours as needed for nausea. MD ALVARO Jose/ELVIN /[id number]
[2020-03-01] MEDS: ONDANSETRON HCL INJ 2MG/ML 2ML 2 MG/ML VIAL IV PRN (17:55)
--- NOTE | 2020-03-01 19:25 | NUR ---
BEDSIDE SHIFT REPORT RECEIVE FROM DAY RN. PT RESTING IN BED IN SEMIFOWLER'S POSITION WATCHING TV AND LOOKING AT HER CELL PHONE. RESPIRATIONS ARE EVEN AND UNLABORED.PT WEARS O2 4L PER N/C ON AND OFF. TELE ON. RT UPPER PICC LINE INTACT. DRESSING TO PICC DRY AND INTACT. PT REPORTS HAVING ONE BM TODAY. PT VOIDING PER BEDSIDE COMMODE. CALL LIGHT WITHIN REACH. BED LOCKED AND IN LOW POSITION.
[2020-03-01] MEDS: INSULIN GLARGINE 100 UNITS/ML VIAL SQ SCH (22:30)
[2020-03-02] VITALS (8 sets, daily range): BP systolic 123–178; BP diastolic 58–81
[2020-03-02] MEDS ORDERED: SODIUM CHLORIDE 0.9% 250ML 250 ML ONE (00:42)
[2020-03-02] MEDS: METRONIDAZOLE 500MG/NS 100ML 100 ML IV SCH (00:44)
[2020-03-02] MEDS: LOPERAMIDE HCL 2 MG CAP PO PRN ×4 (01:03→21:13)
[2020-03-02] MEDS: HYDROMORPHONE 1MG/1ML INJ IV PRN ×3 (01:31→21:21)
[2020-03-02] MEDS: DIPHENHYDRAMINE HCL INJ 50 MG/ML VIAL IV PRN (02:59)
--- NOTE | 2020-03-02 02:59 | NUR ---
PT REPORT ITCHING AFTER FLAGYL STARTED. RED PATCHES NOTED ON FACE,ARMS AND NECK. MED STOPPED. DR MASTERS NOTIFIED. FLAGYL PLACED ON HOLD. BENADRYL ORDER RECEIVED FOR ITCHING. ITCHING AND RASH RESOLVE AFTER IV BENADRYL.
[2020-03-02] MEDS: IRON SUCROSE 100 MG in SODIUM CHLORIDE 0.9% 100 ML 100 ML IV SCH (05:54)
--- NOTE | 2020-03-02 07:02 | NUR ---
BEDSIDE SHIFT REPORT RECEIVED FROM PM NURSE. PT IN STABLE CONDITION. WILL CONTINUE TO MONITOR.
[2020-03-02] MEDS: INSULIN LISPRO 100 UNIT/1 ML 3ML VIAL SQ SCH ×4 (08:15→21:27)
[2020-03-02] MEDS: SILDENAFIL CITRATE 20 MG TAB PO SCH ×3 (09:39→21:12)
[2020-03-02] MEDS: CYANOCOBALAMIN INJ 1,000 MCG/ML VIAL IM SCH (09:39)
[2020-03-02] MEDS: CIPROFLOXACIN 400 MG/D5W 200ML 200 ML IV SCH ×3 (09:39→21:43)
--- NOTE | 2020-03-02 10:06 | Progress Note ---
DATE: 03/02/2020 SUBJECTIVE: Ms. Painter is a 64-year-old female with history of diabetes, hypertension, hyperlipidemia, COPD, CHF, and depression, came to the emergency room complaining of 2 days of rectal bleeding and epigastric pain. She was found to have ischemic colitis. She was started on IV antibiotics. Developed an allergic reaction to metronidazole last night, so we have to stop metronidazole. PHYSICAL EXAMINATION: GENERAL: Today, she is awake and alert. She is still with diarrhea and stomach pain. VITAL SIGNS: Temperature is 97.9, blood pressure 128/62. HEART: Regular rate. LUNGS: Poor inspiratory effort. ABDOMEN: Distended and soft. LABORATORY DATA: On the blood work, white count is 5.53, hemoglobin 9.5, hematocrit 31.1, and glucose 191. COVID test was negative. C diff done twice, came back negative. Ova and parasite as well as stool culture are pending. Abdominal and pelvic CT showed mild ascending colon and proximal sigmoid colon wall thickening associated with the setting of pericolonic fat stranding, can be seen in the setting of colitis. ASSESSMENT: 1. Ischemic colitis. 2. Rectal bleeding secondary to colitis. 3. Abdominal pain due to colitis. 4. Anemia secondary to gastrointestinal bleed. 5. Diabetes type 2 with hyperglycemia. 6. Hypertension. 7. Hyperlipidemia. 8. Pulmonary hypertension. 9. Obesity. PLAN: At present time is to continue IV Cipro. We have to stop metronidazole due to allergic reaction. Continue Lomotil for the diarrhea. Continue ADA diet and sliding scale with insulin. Continue also her Humalog and Lantus. Dilaudid IV for pain. Zofran for nausea and vomiting. All this was discussed in detail with the patient. All questions were answered to satisfaction. MD MARLY Schmidt/MODL /[id number]
[2020-03-02] MEDS: ONDANSETRON HCL INJ 2MG/ML 2ML 2 MG/ML VIAL IV PRN ×2 (12:02→21:21)
[2020-03-02 15:04] LABS: FREE T4 (FREE THYROXINE) 0.92 ng/dL (0.8-1.8); THYROID STIMULATING HORMONE 0.611 uIU/mL (0.350-4.940)
--- NOTE | 2020-03-02 15:09 | Consultation ---
DATE OF CONSULTATION: Endocrine Consultation This is a patient of Dr. Huerta and Dr. Russo. Thank you very much for referring this patient. HISTORY OF PRESENT ILLNESS: This is a 64-year-old white female, who is very well known to me from her previous hospital admissions. The patient is a known diabetic for almost 20 plus years. She takes insulin Lantus 60 units at bedtime and Humalog 30 units with each meal. The patient had several hospital admissions at [facility] recently. This time, the patient came to the hospital with history of abdominal pain and shortness of breath, and is being evaluated for possible ischemic colitis. She has longstanding history of COPD, coronary artery disease, congestive cardiac failure, and left ventricular dysfunction. The patient was also found to have rectal bleeding and is being evaluated by the GI group as well. She has history of hypertension. Other routine medications include, presently she is on antibiotics with Cipro. PHYSICAL EXAMINATION: GENERAL: Today, the patient is alert, awake, little bit apprehensive. She is moderately overweight. VITAL SIGNS: Her heart rate is around 78 and blood pressure 140/80 mmHg. HEENT: Essentially unremarkable. Thyroid is palpable. Clinically, she is near euthyroid. CHEST: Bilateral vesicular breathing. She has bilateral bronchospasm. CARDIAC: First and second heart sounds. There is no third or fourth heart sounds. Ejection systolic murmur sound grade 2/6. EXTREMITIES: The patient has evidence of diabetic sensorimotor neuropathy in both lower extremities and bilateral edema. ABDOMEN: She had obese abdomen with tenderness in the right upper quadrant area. LABORATORY DATA: Her blood sugar at the time of admission was around 400. Anion gap was around 17. Presently, the blood sugars are in 250 to 300 range. CLINICAL IMPRESSION: Diabetes mellitus type 2 uncontrolled with complications, rectal bleeding, abdominal pain, coronary artery disease, chronic obstructive pulmonary disease, congestive cardiac failure, morbid obesity, and obstructive pulmonary disease. PLAN: At this time is to do hemoglobin A1c, thyroid function tests, monitor blood sugars closely and adjust insulin dose. Thanks for referring this patient. I will be following this patient with you. MD EDDIE Casas/ELVIN /[id number]
--- NOTE | 2020-03-02 19:00 | NUR ---
WALKING ROUNDS PERFORMED, RECEIVED PT LAYING SEMI FOWLERS IN BED, AAOX3, RR EVEN AND NON-LABORED, ON ROOM AIR. PT REPORTS 8/10 PAIN TO LOWER ABD. LEFT PT LAYING SEMI FOWLERS IN BED, BED IN LOW LOCKED POSITION, SIDE RAILS UPX2, CALL LIGHT AND PHONE WITHIN REACH.
[2020-03-02] MEDS: INSULIN GLARGINE 100 UNITS/ML VIAL SQ SCH (21:27)
[2020-03-03] VITALS (9 sets, daily range): BP systolic 121–174; BP diastolic 49–73
--- NOTE | 2020-03-03 00:01 | NUR ---
SPOKE WITH PATIENT CONCERNING TELEMETRY BOX. PT REPORTS MD MASTERS TOLD HER SHE COULD REMOVE THE BOX AND THE NURSE RETURNED IT TO TELEMETRY. Addendum: 03/03/20 at 0512 by Stacia Kelley RN nurse returned telemetry box on 02/29/2020
--- NOTE | 2020-03-03 00:06 | NUR ---
PAGE PLACED FOR MD OLIVO CONCERNING TELEMETRY BEING REMOVED. WAITING FOR CALLBACK.
--- NOTE | 2020-03-03 00:08 | NUR ---
SPOKE WITH MD OLIVO CONCERNING TELEMETRY BEING REMOVED FROM 02/29/2020 TILL NOW AND WHAT PATIENT REPORTED ABOUT MD MASTERS TELLING THE PATIENT SHE NO LONGER NEEDED TO WEAR IT. OK TO D/C TELEMETRY ORDER.
[2020-03-03] MEDS: DIPHENHYDRAMINE HCL INJ 50 MG/ML VIAL IV PRN ×2 (01:12→23:33)
[2020-03-03 05:04] LABS: BASOPHILS % 0.6 % (0.0-1.0); EOSINOPHILS # (AUTO) 0.2 (0.0-0.4); EOSINOPHILS % 3.7 % (0.0-6.0); HEMATOCRIT 33.8 % (34.2-44.1); HEMOGLOBIN 9.6 g/dL (12.0-16.0); LYMPHOCYTES # (AUTO) 0.9 (1.0-3.2); LYMPHOCYTES % 19.8 % (18.0-39.1); MEAN CORPUSCULAR HEMOGLOBIN 22.9 pg (28-32); MEAN CORPUSCULAR HGB CONC 28.4 g/dL (31-35); MEAN CORPUSCULAR VOLUME 80.5 fL (81-99); MONOCYTES # (AUTO) 0.4 (0.2-0.8); MONOCYTES % 8.2 % (4.4-11.3); NEUTROPHILS # (AUTO) 3.1 (2.1-6.9); NEUTROPHILS % 66.2 % (38.7-80.0); PLATELET COUNT 158 x10e3/uL (140-360)
[2020-03-03] MEDS: ONDANSETRON HCL INJ 2MG/ML 2ML 2 MG/ML VIAL IV PRN ×3 (05:35→22:35)
[2020-03-03] MEDS: HYDROMORPHONE 1MG/1ML INJ IV PRN ×3 (05:35→22:35)
[2020-03-03] MEDS: IRON SUCROSE 100 MG in SODIUM CHLORIDE 0.9% 100 ML 100 ML IV SCH (05:40)
--- NOTE | 2020-03-03 07:03 | NUR ---
BEDSIDE SHIFT REPORT RECEIVED FROM PM NURSE. PT IN STABLE CONDITION.
[2020-03-03] MEDS: INSULIN LISPRO 100 UNIT/1 ML 3ML VIAL SQ SCH ×4 (07:30→21:18)
[2020-03-03] MEDS: CIPROFLOXACIN 400 MG/D5W 200ML 200 ML IV SCH ×2 (08:34→21:17)
[2020-03-03] MEDS: SILDENAFIL CITRATE 20 MG TAB PO SCH ×3 (08:43→21:17)
[2020-03-03] MEDS: CYANOCOBALAMIN INJ 1,000 MCG/ML VIAL IM SCH (08:44)
--- NOTE | 2020-03-03 09:32 | Progress Note ---
DATE: 03/03/2020 SUBJECTIVE: Ms. Painter is a 64-year-old female with history of hypertension, hyperlipidemia, diabetes, COPD, CHF, and depression, came to the emergency room complaining of rectal bleeding and epigastric pain. She was found to be anemic as well as having ischemic colitis. She was started on IV antibiotics. Developed an allergic reaction to metronidazole, so we had to stop that one. PHYSICAL EXAMINATION: GENERAL: At present time, she is awake and alert. She is feeling better. Diarrhea is getting better. VITAL SIGNS: Temperature is 98.5, blood pressure is 137/49. HEART: Regular rate. LUNGS: Clear to auscultation. ABDOMEN: Distended and soft with mild tenderness. LABORATORY DATA: On the blood work, white count is 4.64, hemoglobin 9.6, hematocrit 33.8, glucose 207. COVID test came back negative. Ova and parasites are still pending. ASSESSMENT: 1. Ischemic colitis. 2. Rectal bleeding secondary to colitis. 3. Abdominal pain due to colitis. 4. Anemia secondary to gastrointestinal bleed. 5. Diabetes type 2 with hyperglycemia. 6. Hypertension. 7. Hyperlipidemia. 8. Pulmonary hypertension. 9. Obesity. PLAN: At present time is to continue ADA diet, sliding scale. Continue Humalog and Lantus. The patient was seen by hand bulldozer for hypoglycemia. Continue IV Cipro and Dilaudid for pain. Zofran for nausea and vomiting, slowly improving. Consider discharging her home in 24-48 hours. All this was discussed in detail with the patient. All questions were answered to satisfaction. I spent more than 30 minutes examining the patient, reviewing overnight event, lab results, and discussing plan of care with her. MD MARLY Schmidt/MODL /[id number]
--- NOTE | 2020-03-03 13:20 | NUR ---
WOUND CARE CONSULT FOR 64 YO FEMALE HX OFCOLLITIS ,LOWER GI BLEED ROHIT 15 ON MODERATE PUP STATUS AND INTERVENTIONS AND VISCO MATTRESS LABS: WBC-4.64 HGB_9.6 GLUCOSE-PEND SKIN ASSESSMENT COMPLETE PATIENT PRESENTS WITH CARLOS ENRIQUE AREA /CARLOS ENRIQUE RECTAL IRRITATION R/T MOISTURE AND LOOSE STOOL RECOMMENDATIONS: NURSING TO CONTINUE TO MAINTAIN MODERATE PUP STATUS AND INTERVENTIONS AND VISCO MATTRESS NURSING TO CONTINUE TO ASSIST PATIENT OUT OF BED FOR MEALS AND MUCH TOLERATED NURSING TO CONTINUE TO ASSIST PATIENT NEEDED WITH MEALS AND NUTRITIONAL SUPPLEMENTS TO ENSURE PROPER REQUIREMENTS FOR HEALING NURSING TO CONTINUE TO OFFLOAD FEET AND HEELS NEEDED WITH PILLOW SUSPENSION WHEN IN BED NURSING TO CLEAN CARLOS ENRIQUE AREA WITH NONABRASIVE NURSES' AIDE DAILY AND APPLY BARRIER PASTE Addendum: 03/03/20 at 1325 by Jesus Rose RN Amended: Links added.
[2020-03-03] MEDS: ZINC OXIDE/COD LIVER OIL 30 GM TUBE TOP PRN ×2 (15:04→22:34)
[2020-03-03] MEDS: PANTOPRAZOLE SOD 40 MG TABEC PO SCH (18:35)
--- NOTE | 2020-03-03 19:10 | NUR ---
RECEIVED REPORT FROM PREVIOUS NURSE. CALL LIGHT WITHIN REACH. PATIENT IN BED.
[2020-03-03] MEDS: INSULIN GLARGINE 100 UNITS/ML VIAL SQ SCH (21:18)
[2020-03-04] VITALS (8 sets, daily range): BP systolic 124–160; BP diastolic 40–80
[2020-03-04] MEDS: IRON SUCROSE 100 MG in SODIUM CHLORIDE 0.9% 100 ML 100 ML IV SCH (05:09)
[2020-03-04] MEDS: ONDANSETRON HCL INJ 2MG/ML 2ML 2 MG/ML VIAL IV PRN ×3 (05:10→21:15)
[2020-03-04] MEDS: HYDROMORPHONE 1MG/1ML INJ IV PRN ×3 (05:10→21:15)
--- NOTE | 2020-03-04 07:03 | NUR ---
GAVE BEDSIDE SHIFT REPORT TO ONCOMING NURSE. CALL LIGHT WITHIN REACH. PATIENT IN BED. HOURLY ROUNDING PERFORMED.
[2020-03-04] MEDS: INSULIN LISPRO 100 UNIT/1 ML 3ML VIAL SQ SCH ×4 (07:30→21:05)
[2020-03-04] MEDS: PANTOPRAZOLE SOD 40 MG TABEC PO SCH (08:33)
[2020-03-04] MEDS: SILDENAFIL CITRATE 20 MG TAB PO SCH ×3 (08:33→21:05)
[2020-03-04] MEDS: CIPROFLOXACIN 400 MG/D5W 200ML 200 ML IV SCH ×2 (08:33→21:05)
[2020-03-04] MEDS: CYANOCOBALAMIN INJ 1,000 MCG/ML VIAL IM SCH (08:33)
--- NOTE | 2020-03-04 09:17 | Progress Note ---
DATE: 03/04/2020 SUBJECTIVE: Ms. Painter is a 64-year-old female with history of hypertension, hyperlipidemia, diabetes, COPD, CHF, and depression, who came to the emergency room complaining of epigastric pain and rectal bleeding. She was found to have ischemic colitis. She was started on IV antibiotics, developed allergy to metronidazole. We had to stop that. She is still on IV Cipro. PHYSICAL EXAMINATION: GENERAL: Today, she is awake and alert. She is feeling better. VITAL SIGNS: Temperature is 98.1, blood pressure is 140/66. HEART: Regular rate. LUNGS: Clear to auscultation. ABDOMEN: Soft. LABORATORY DATA: On the blood work, white count is 4.64, hemoglobin 9.6, and hematocrit 33.8. COVID test came back negative. Ova and parasites are pending. ASSESSMENT: 1. Ischemic colitis. 2. Rectal bleeding secondary to colitis. 3. Abdominal pain due to colitis. 4. Anemia secondary to gastrointestinal bleeding. 5. Diabetes type 2 with hyperglycemia. 6. Hypertension. 7. Hyperlipidemia. 8. Pulmonary hypertension. 9. Obesity. PLAN: At the present time is to continue IV Cipro. Continue ADA diet and insulin. Blood sugar is doing much better and we are going to start PT/OT considering discharge inpatient tomorrow if it is stable. All this was discussed with the patient. All questions were answered to satisfaction. I spent more than 30 minutes examining patient, reviewing overnight events and discussing a plan of care with her. MD MARLY Schmidt/MODL /[id number]
--- NOTE | 2020-03-04 17:42 | NUR ---
Nutrition Screen Note RD Recommendation for Physician: -Continue current diet as ordered and adding heart healthy diet Plan of Care: RD following, monitoring for tolerance and adequacy Nutrition reason for involvement: length of stay Primary Diagnose(s): colitis, hyperglycemia, lower GI bleed PMH: COPD, coronary artery disease, congestive cardiac failure, and left ventricular dysfunction, hypertension Ht: 63 in Wt:240 lb BMI: 42.5 kg/m2 IBW:[address] Assessment: (03/04/20) Chart reviewed. Labs and meds reviewed. Pt is a 64 year old female admitted with colitis, hyperglycemia, and lower GI bleed. No reports of decreased appetite or recent unintentional weight loss prior to admission per chart. It is recorded that pt is consuming 75-100% of meals. Will continue to monitor Current Diet: GI soft/1800 ADA Malnutrition Evaluation (03/04/20) The patient does not meet criteria for a specified degree of malnutrition at this time. Will re-evaluate at follow-up as appropriate. Diet Education Needs Assessment: RD is available for diet education as needed Nutrition Care Level: low Signed: Ruth Davison, RD, LD
[2020-03-04] MEDS: INSULIN GLARGINE 100 UNITS/ML VIAL SQ SCH (21:05)
--- NOTE | 2020-03-04 21:05 | NUR ---
PATIENT RESTING IN BED IN STABLE CONDITION, NO SIGNS OF DISTRESS NOTED. IV ANTIBIOTICS ARE RUNNING AT ORDERED RATE AND NASAL CANNULA IS RUNNING AT 3 LITERS. PATIENT VOICES PAIN AT A LEVEL OF 8 AND WAS MEDICATED ORDERED. BED IS IN LOWEST POSITION, BOTH SIDE RAILS ARE UP, CALL LIGHT IS WITHIN EASY REACH, WILL CONTINUE TO MONITOR.
[2020-03-04] MEDS: DIPHENHYDRAMINE HCL INJ 50 MG/ML VIAL IV PRN (21:59)
[2020-03-05] VITALS: BP 133/59
[2020-03-05] MEDS: DIPHENHYDRAMINE HCL INJ 50 MG/ML VIAL IV PRN (01:23)
[2020-03-05] MEDS ORDERED: HYDROMORPHONE 1MG/1ML INJ IV PRN ×2 (01:30→05:15)
[2020-03-05] MEDS: ONDANSETRON HCL INJ 2MG/ML 2ML 2 MG/ML VIAL IV PRN (02:03)
[2020-03-05 04:00] VITALS: BP 140/68
[2020-03-05 05:14] LABS: EOSINOPHILS # (AUTO) 0.2 (0.0-0.4); EOSINOPHILS % 4.2 % (0.0-6.0); HEMATOCRIT 32.5 % (34.2-44.1); HEMOGLOBIN 9.4 g/dL (12.0-16.0); LYMPHOCYTES # (AUTO) 1.1 (1.0-3.2); LYMPHOCYTES % 26.7 % (18.0-39.1); MEAN CORPUSCULAR HEMOGLOBIN 24.5 pg (28-32); MEAN CORPUSCULAR HGB CONC 28.9 g/dL (31-35); MEAN CORPUSCULAR VOLUME 84.9 fL (81-99); MONOCYTES # (AUTO) 0.3 (0.2-0.8); MONOCYTES % 8.4 % (4.4-11.3); NEUTROPHILS # (AUTO) 2.3 (2.1-6.9); PLATELET COUNT 148 x10e3/uL (140-360); RED BLOOD COUNT 3.83 x10e6/uL (3.6-5.1); RED CELL DISTRIBUTION WIDTH 22.2 % (11.7-14.4)
[2020-03-05] MEDS: IRON SUCROSE 100 MG in SODIUM CHLORIDE 0.9% 100 ML 100 ML IV SCH (06:14)
[2020-03-05] MEDS: INSULIN LISPRO 100 UNIT/1 ML 3ML VIAL SQ SCH (07:30)
[2020-03-05 08:00] VITALS: BP 142/53
[2020-03-05] MEDS: PANTOPRAZOLE SOD 40 MG TABEC PO SCH (08:19)
[2020-03-05] MEDS: CIPROFLOXACIN 400 MG/D5W 200ML 200 ML IV SCH (08:19)
[2020-03-05] MEDS: CYANOCOBALAMIN INJ 1,000 MCG/ML VIAL IM SCH (08:19)
[2020-03-05] MEDS: SILDENAFIL CITRATE 20 MG TAB PO SCH (08:19)
[2020-03-05 08:37] VITALS: BP 142/53
--- NOTE | 2020-03-05 09:14 | Discharge Summary ---
HOSPITAL COURSE: Ms. Painter is a 64-year-old female with history of diabetes, hypertension, hyperlipidemia, COPD, CHF, and depression, who came to the emergency room complaining of epigastric pain and rectal bleeding. Had a CAT scan and colonoscopy that shows ischemic colitis. She was started on IV Cipro and metronidazole. She developed an allergy to metronidazole, so it had to be stopped. She was continued on Cipro at present time. Blood sugar is doing better and she is feeling better, so the plan is to discharge her home. PHYSICAL EXAMINATION: GENERAL: She is awake and alert. VITAL SIGNS: Temperature is 97.7 and blood pressure 142/53. HEART: Regular rate. LUNGS: Clear to auscultation. ABDOMEN: Distended and soft. LABORATORY DATA: On the blood work; COVID was negative. Sugar 108, potassium 4.6, and creatinine 0.85. White count 4.04, hemoglobin 9.4, and hematocrit 32.5. Stool culture was positive for blood. Stool for ova and parasite was negative. DISCHARGE DIAGNOSES: 1. Ischemic colitis. 2. Rectal bleeding secondary to colitis. 3. Abdominal pain due to colitis. 4. Anemia secondary to gastrointestinal bleeding. 5. Diabetes type 2 with hyperglycemia. 6. Hypertension. 7. Hyperlipidemia. 8. Pulmonary hypertension. 9. Obesity. The plan is to discharge the patient home. She is to continue ADA diet, low-cholesterol diet. We are going to put her on Cipro 500 mg p.o. twice a day for 7 more days. She is going to also have Zofran for nausea and vomiting and tramadol for pain. Continue other home medications. Continue insulin as directed by Dr. Gutierrez. She needs follow up with me in one week. She is to call me or come back to the emergency room if any recurrent problem. All this was discussed with the patient. All questions were answered to satisfaction. Please see home medication reconciliation list. MD MARLY Schmidt/ELVIN /[id number]
[2020-03-05] MEDS ORDERED: CIPRO500 MG PO (09:22)
[2020-03-05] MEDS ORDERED: ZOFRAN8 MG PO (09:23)
[2020-03-05] MEDS ORDERED: TRAMADOL HCL100 M2 PO (09:23)
== END 2020-03-05 11:00 | disposition home or self-care (01) | DRG 394 ==
LOC: ER 13:05 → ERHOLD 17:32 → MED/SURG 18:49 → OBSVTOIN 02-28 10:58
PROVIDERS: ADMIT Internal Medicine; ATTEND Internal Medicine
PROC: 0DBN8ZX Excision of Sigmoid Colon, Via Natural or Artificial Opening Endoscopic, Diagnostic (ICD-10-PCS; principal; 2020-02-27 15:30)
PROC: 30233N1 Transfusion of Nonautologous Red Blood Cells into Peripheral Vein, Percutaneous Approach (ICD-10-PCS; 2020-02-29)
DX: K55.9 Vascular disorder of intestine, unspecified (principal); K63.3 Ulcer of intestine; Z68.41 Body mass index [BMI] 40.0-44.9, adult; D62 Acute posthemorrhagic anemia; I27.20 Pulmonary hypertension, unspecified; E66.01 Morbid (severe) obesity due to excess calories; K52.9 Noninfective gastroenteritis and colitis, unspecified; J44.9 Chronic obstructive pulmonary disease, unspecified; E11.65 Type 2 diabetes mellitus with hyperglycemia; I11.0 Hypertensive heart disease with heart failure; I50.9 Heart failure, unspecified; E78.5 Hyperlipidemia, unspecified; E11.40 Type 2 diabetes mellitus with diabetic neuropathy, unspecified; I25.10 Atherosclerotic heart disease of native coronary artery without angina pectoris; Z11.59 Encounter for screening for other viral diseases; D50.9 Iron deficiency anemia, unspecified; D51.3 Other dietary vitamin B12 deficiency anemia
CPT/HCPCS: 36415; 36569; 45378; 71045; 74176; 80053; 81001; 82270; 82550; 82553; 82607; 82728; 82746; 82948; 83036; 83540; 83630; 83690; 83993; 84439; 84443; 84466; 84484; 85025; 85045; 85610; 85730; 86850; 86900; 86920; 87045; 87177; 87328; 87493; 88305; 93005; 94640; 96361; 99284; G0378; J1170; J1200; J1610; J1756; J1815; J1817; J1940; J2250; J2405; J3010; J3420; J7030; J7040; J7050; P9016; U0002

== ENCOUNTER 2020-03-12 03:03 | Emergency (ER) | payer OTHER ==
[~2020-03-12] VITALS: Ht 160 cm; Wt 108.9 kg
[~2020-03-12 03:03] MED LIST changes: +CIPRO500 MG PO; +TRAMADOL HCL100 M2 PO; +ZOFRAN8 MG PO
[2020-03-12] MEDS ORDERED: ALBUTEROL SULF 0.083% NEB SOLN 3 ML NEB NEB STA (03:17)
--- OUTSIDE RECORDS SUMMARY | 2020-03-12 03:19 | XMS REPORT | Continuity of Care Document ---
Author Author [facility] t Organization [facility] Address [address] [place] [address] Phone Unavailable Care Team Providers Care Physician Practice Manager Name Role Phone LUCILLE OLIVO MD PCP LUCILLE OLIVO Attphys Unavailable Treasure JANE Attphys Unavailable RAFAELA MCADAMS Attphys Unavailable Elyse TOLBERT Attphys Unavailable EUNICE, S ELIESER Attphys Unavailable Charly OLIVIA Attphys Unavailable SONAM, BENJAMIN Attphys Unavailable RETA P JEFFREY Attphys Unavailable Charly BADILLO Attphys Unavailable LUCILLE OLIVO Admphys Unavailable Waldo JUAN Admphys Unavailable SONAM, BENJAMIN Admphys Unavailable PATEL ROTIZ Admphys Unavailable Payers Payer Name Policy Type Policy Number Effective Date Expiration Date Mary ramirezmalick [employer] [id number] 2013 00:00:00 [facility] [employer] [id number] 2013 00:00:00 [facility] Problems Condition Name Condition Details Condition Category Status Onset Date Resolution Date Last Treatment Date Treating Clinician Comments Source Uncontrolled type 2 diabetes mellitus Diabetes type 2, uncontrol led Problem Active [facility] Hyperglycemia Hyperglycemia Problem Active [facility] Pneumonia Pneumonia Problem Active [facility] Syncope Syncope Problem Active [facility] Chronic kidney disease CKD (chronic kidney disease) Problem Active [facility] Pre-syncope Syncope, near Problem Active [facility] Poorly controlled diabetes mellitus Poorly controlled diabetes m ellitus Problem Active [facility] Bradycardia with 41-50 beats per minute Bradycardia with 41- 50 beats per minute Problem Active [facility] Congestive heart failure CHF (congestive heart failure) Problem Active [facility] Chronic obstructive pulmonary disease COPD (chronic ob structive pulmonary disease) Problem Active [facility] Volume depletion Volume depletion Problem Active [facility] Allergies, Adverse Reactions, Alerts Allergy Name Allergy Type Status Severity Reaction(s) Onset Date Inacti ve Date Treating Clinician Comments Source Penicillins DA Active SV 2020-01-06 00:00:00 [facility] Penicillins DA Active SV 2019-12-12 00:00:00 [facility] Penicillins DA Active SV 2019-12-03 00:00:00 [facility] Penicillins DA Active SV 2019-11-20 00:00:00 [facility] Penicillins DA Active SV 2019-08-20 00:00:00 [facility] Penicillins DA Active SV 2019-08-06 00:00:00 [facility] Penicillins DA Active SV 2019-05-31 00:00:00 [facility] Penicillins DA Active SV 2019-05-17 00:00:00 [facility] Penicillin Allergy to Substance Active rash 2019-01-10 00:00:00 [facility] Penicillins DA Active SV 2017-11-15 00:00:00 [facility] Medications Ordered Medication Name Filled Medication Name Start Date Stop Da te Current Medication? Ordering Clinician Indication Dosage Frequency Signature (SIG) Comments Components Source Bacitracin/Polymyxin B Sulfate (Bacitrac in-Polymyxin Ointment) 28.35 Gm Oint...g. Bacitracin/Polymyxin B Sulfate (Bacitrac in-Polymyxin Ointment) 28.35 Gm Oint...g. 2019-04-23 00:00:00 Yes Elieser Dawson Md 2 Three Times A Day [facility] Betamethasone/Clotrimazole (Clotrimazole-Betamethasone Crm) 15 Gm Cr Betamethasone/Clotrimazole (Clotrimazole-Betamethasone Crm) 15 Gm Cr 2019-04-23 00:00:00 Yes Elieser Dawson Md 2 Three Times A Day [facility] Chlorhexidine Gluconate (Hibiclens) 120 Ml Liqd Chlorh exidine Gluconate (Hibiclens) 120 Ml Liqd 2019-04-23 00:00:00 Yes Elieser Dawson Md 5 Three Times A Day [facility] Aspirin (Aspir 81) 81 Mg Tablet. Aspirin (Aspir 81) 81 Mg Tablet. Yes 81 Daily [facility] Furosemide 40 Mg Tablet Furosemide 40 Mg Tablet Yes 40 Twice A Day [facility] Gabapentin 300 Mg Capsule Gabapentin 300 Mg Capsule Yes 300 Every 6 Hours [facility] Glimepiride 2 Mg Tablet Glimepiride 2 Mg Tablet Yes 2 Daily [facility] Insulin Glargine (Lantus 3ML Pen) 100 Units/1 Ml Inj I nsulin Glargine (Lantus 3ML Pen) 100 Units/1 Ml Inj Yes 60 Bedtime [facility] Insulin Lispro (Humalog) 100 Unit/1 Ml Insuln.pen Insu mateus Lispro (Humalog) 100 Unit/1 Ml Insuln.pen Yes 30 Three Times Daily With Meals [facility] Losartan Potassium 50 Mg Tablet Losartan Potassium 50 Mg Tablet Yes 50 Daily [facility] Metoprolol Tartrate 50 Mg Tablet Metoprolol Tartrate 50 Mg Tablet Yes 50 Twice A Day [facility] Omeprazole 40 Mg Capsule.dr Omeprazole 40 Mg Capsule. Yes 40 Daily [facility] Potassium Chloride 10 Meq Tablet.er Potassium Chloride 10 Meq Tablet. er Yes 10 Daily [facility] Ropinirole Hcl 1 Mg Tablet Ropinirole Hcl 1 Mg Tablet Yes 2 Four Times Daily [facility] Sertraline Hcl 100 Mg Tablet Sertraline Hcl 100 Mg Tablet Y es 100 Daily [facility] Simvastatin 40 Mg Tablet Simvastatin 40 Mg Tablet Yes 40 Today At 9:00PM [facility] Spironolactone 25 Mg Tablet Spironolactone 25 Mg Tablet Yes 25 Daily [facility] Insulin Human Regular (Humulin R U-500*) 500 Unit/1 Ml Inj, 50 Subcutaneously Insulin Human Regular (Humulin R U-500*) 500 Unit/1 Ml Inj, 50 Subcutaneously 2019-01-21 00:00:00 No 50 Three Times A Day [facility] Albuterol Sulfate (Proair Hfa Inhaler*) 8.5 Gm Inh, 2 Inh Albuterol Sulfate (Proair Hfa Inhaler*) 8.5 Gm Inh, 2 Inh 2019-01-16 00:00:00 No 2 Four Times Daily as needed for Shortness Of Breath [facility] Fenofibrate Nanocrystallized (Fenofibrate) 145 Mg Tabl et, 145 Mg Oral Fenofibrate Nanocrystallized (Fenofibrate) 145 Mg Tablet, 145 Mg Oral 2019-01-16 00:00:00 No 145 Daily [facility] Sildenafil Citrate (Revatio) 20 Mg Tab, 20 Mg Oral Calista denafil Citrate (Revatio) 20 Mg Tab, 20 Mg Oral 2019-01-16 00:00:00 No 20 Th ree Times A Day [facility] Solifenacin Succinate (Vesicare) 5 Mg Tablet, 10 Mg Or al Solifenacin Succinate (Vesicare) 5 Mg Tablet, 10 Mg Oral 2019-01-16 00:00:00 No 10 Bedtime [facility] Benzonatate (Tessalon Perle) 100 Mg Capsule, 100 Mg Or al Benzonatate (Tessalon Perle) 100 Mg Capsule, 100 Mg Oral 2019-01-13 00:00:00 No 100 Every 12 Hours [facility] Glimepiride 2 Mg Tablet, 4 Mg Oral Glimepiride 2 Mg Tablet, 4 Mg Oral 2019-01-13 00:00:00 No 4 Twice A Day [facility] Furosemide (Lasix) 40 Mg Tablet, 40 Mg Oral Furosemide (Lasix) 40 Mg Tablet, 40 Mg Oral 2018-07-03 00:00:00 No 40 Twice A Day [facility] Paroxetine Hcl 20 Mg Tablet, 40 Mg Oral Paroxetine Hcl 20 Mg Tablet, 40 Mg Oral 2018-06-27 00:00:00 No 40 Daily [facility] Tramadol Hcl (Ultram 50MG*) 50 Mg Tab, 50 Mg Oral Tram adol Hcl (Ultram 50MG*) 50 Mg Tab, 50 Mg Oral 2018-06-27 00:00:00 No 50 Every 12 Hours [facility] Insulin Regular, Human (Humulin R) 100 Unit/1 Ml Vial, 20 Units Subcutaneously Insulin Regular, Human (Humulin R) 100 Unit/1 Ml Vial, 20 Units Subcutaneously 2017-12-28 00:00:00 No 20 Twice A Day [facility] Insulin Detemir (Levemir) 100 Unit/1 Ml Vial, Insulin Detemir (Levemir) 100 Unit/1 Ml Vial, 2017-10-31 00:00:00 [facility] Insulin Aspart (Novolog Mix 70-30 Vial) 100 Units/Ml M l, Insulin Aspart (Novolog Mix 70-30 Vial) 100 Units/Ml Ml, 2017-10-11 00:00:00 [facility] Metformin Hcl (Glucophage) 500 Mg Tablet, Metformin Hc l (Glucophage) 500 Mg Tablet, 2017-09-28 00:00:00 [facility] Metoprolol Succinate (Toprol Xl) 50 Mg Tab.er.24h, 50 Oral Metoprolol Succinate (Toprol Xl) 50 Mg Tab.er.24h, 50 Oral 2017-09-28 00:00:00 No 50 Twice A Day for Elevated Blood Pressure [facility] Procedures Procedure Date / Time Performed Performing Clinician [facility] e X-ray of chest, two views 2019-01-10 00:00:00 BOYD NICHOLS [facility] Computed tomography of brain without radiopaque contrast 201 03-04-19 00:00:00 EUNICEELIESER NOLAN S [facility] Computed tomography of cervical spine without contrast 07-11 00:00:00 EUNICE ELIESER S [facility] CT maxillofacial area wo contrast 2018-07-11 00:00:00 JEAN DAWSON [facility] X-ray of chest, single view 2018-07-01 00:00:00 BENJAMIN MASTERS [facility] X-ray of chest, two views 2018-06-27 00:00:00 TINA JANE [facility] Encounters Start Date/Time End Date/Time Encounter Type Admission Type [facility] Care Department Encounter ID Source 2019-04-27 02:46:00 2019-04-27 04:46:00 Departed Emergency Room 1 JACQUES JANE [facility] [id number] [facility] 2019-04-23 20:19:00 2019-04-23 20:58:00 Departed Emergency Room [facility] [id number] [facility] 2019-04-17 20:48:00 2019-04-17 21:35:00 Departed Emergency Room [facility] [id number] [facility] 2019-03-15 01:19:00 2019-03-15 03:30:00 Departed Emergency Room 1 JACQUES JANE [facility] [id number] [facility] 2019-02-23 23:49:00 2019-02-24 05:38:00 Departed Emergency Room 1 JACQUES JANE [facility] [id number] [facility] 2019-01-18 14:54:00 2019-01-21 16:15:00 Discharged Inpatient 1 JACQUES JANE [facility] [id number] [facility] 2019-01-11 19:31:00 2019-01-13 15:36:00 Discharged Inpatient (obs) 1 FLO TOLBERT [facility] [id number] [facility] 2019-01-10 15:21:00 2019-01-10 19:19:00 Departed Emergency Room 1 DAYTON [facility] [id number] [facility] 2018-07-30 16:40:00 2018-07-31 01:45:00 Departed Emergency Room 1 DAYTON [facility] [id number] [facility] 2018-07-11 10:03:00 2018-07-11 14:40:00 Departed Emergency Room 1 ELIESER DAWSON [facility] [id number] [facility] 2018-07-01 09:28:00 2018-07-03 14:06:00 Discharged Inpatient 1 LUCILLE OLIVO [facility] [id number] [facility] 2018-05-30 19:52:00 2018-05-30 20:30:00 Departed Emergency Room [facility] [id number] [facility] 2018-04-03 01:16:00 2018-04-03 04:19:00 Departed Emergency Room 1 ROBERT OLIVIA [facility] [id number] [facility] 2018-02-04 11:46:00 2018-02-07 13:55:00 Discharged Inpatient (obs) 1 ROBERT OLIVIA [facility] [id number] [facility] 2018-01-31 22:01:00 2018-02-01 02:14:00 Departed Emergency Room 1 TOMASZ [facility] [id number] [facility] 2017-12-24 00:08:00 2017-12-28 16:18:00 Discharged Inpatient (obs) 1 BENJAMIN MASTERS [facility] [id number] [facility] 2017-10-31 01:50:00 2017-10-31 03:18:00 Departed Emergency Room ER JACQUES JANE [facility] [id number] [facility] 2017-10-25 22:28:00 2017-10-26 00:09:00 Departed Emergency Room [facility] [id number] [facility] 2017-10-11 23:19:00 2017-10-12 04:45:00 Departed Emergency Room ER FLO TOLBERT [facility] [id number] [facility] 2017-10-11 07:38:00 2017-10-11 10:17:00 Departed Emergency Room ER JEFFREY MCDUFFIE [facility] [id number] [facility] 2017-09-25 14:18:00 2017-09-29 13:30:00 Discharged Inpatient ER JAYASHREE BADILLO [facility] [id number] [facility] 2017-08-24 13:00:00 2017-08-26 16:20:00 Discharged Inpatient (obs) ER FLO TOLBERT [facility] [id number] [facility] 2017-04-17 23:09:00 2017-04-18 03:16:00 Departed Emergency Room [facility] [id number] [facility] 2017-02-09 21:43:00 2017-02-10 02:38:00 Departed Emergency Room [facility] [id number] [facility] 2016-12-29 19:19:00 2016-12-30 01:00:00 Departed Emergency Room [facility] [id number] [facility] Results Test Description Test Time Test Comments Results Result Comments Source CHEST XRAY LINE PLACEMENT 2020-02-26 21:45:00 [facility] [address] [address] Patient Name: KALYANI TALAVERA MR #: [id number] : 1955 Age/Sex: 64/F Req #: [id number] Adm Physician: LUCILLE OLIVO MD Ordered by: FLO TOLBERT MD Report #: [id number] Location: MED/SURG Room/Bed: Formerly named [facility] Procedure: [id number] DX/CHEST XRAY LINE PLACEMENT Exam Date: 02/26/20 Exam Time: 2104 REPORT STATUS: Signed EXAMINATION: CHEST XRAY LINE PLACEMENT one view INDICATION: PICC line placement [id number] COMPARISON: Radiograph from today FINDINGS: See impression. IMPRESSION: The tip of a right PICC projects over the distal SVC. No pneumothorax. Otherwise, unchanged exam. Signed by: Mae Macedo MD on 02/26/2020 9:48 PM Dictated By: MAE MACEDO MD 47 Transcribed By: JIM on 02/26/202147 COPY TO: FLO TOLBERT MD CT ABDOMEN/PELVIS WO 2020-02-26 16:53:00 [address] [address] Patient Name: KALYANI TALAVERA MR #: [id number] : 1955 Age/Sex: 64/F Req #: [id number] Adm Physician: Ordered by: FLO TOLBERT MD Report #: [id number] Location: ER Room/Bed: Procedure: [id number] CT/CT ABDOMEN/PELVIS WO Exam Date: 02/26/20 Exam [...] 4:59 PM Dictated By: CEDRIC WYNNE MD 9885 T ranscribed By: JIM on 02/26/20 8008 COPY TO: FLO TOLBERT MD CHEST SINGLE (PORTABLE) 2020-02-26 14:35:00 [address] [address] Patient Name: KALYANI TALAVERA MR #: [id number] : 1955 Age/Sex: 64/F Req #: [id number] Adm Physician: Ordered by: FLO TOLBERT MD Report #: [id number] Location: ER Room/Bed: Procedure: [id number] DX/CHEST SINGLE (PORTABLE) Exam Date: 02/26/20 Exam [...] 2:36 PM Dictated By: CEDRIC WYNNE MD 1436 Transcribed By: JIM on 02/26/20 1436 COPY TO: FLO TOLBERT MD CHEST SINGLE (PORTABLE) 2020-02-08 06:52:00 [address] [address] Patient Name: KALYANI TALAVERA MR #: [id number] : 1955 Age/Sex: 64/F Req #: [id number] Adm Physician: Ordered by: JACQUES JANE MD Report #: [id number] Location: ER Room/Bed: Procedure: [id number] DX/CHEST SINGLE (PORTABLE) Exam Date: 02/08/20 Exam Time: 639 REPORT STATUS: Signed Examination: Single AP view [...] JANE MD CT CHEST W 2020-02-05 06:23:00 [place] [address] Patient Name: KALYANI TALAVERA MR #: [id number] : 1955 Age/Sex: 64/F Req #: [id number] Adm Physician: Ordered by: RAFAELA MCADAMS DO Report #: [id number] Location: ER Room/Bed: Procedure: [id number] CT/CT CHEST W Exam Date: 02/05/20 Exam [...] JOSEPH MD 0644 Transcribed By: JIM on 02/05/2039 COPY TO: RAFAELA MCADAMS DO CT ABDOMEN/PELVIS W 2020-02-05 06:23:00 [address] [place] [address] Patient Name: KALYANI TALAVERA MR #: [id number] : 1955 Age/Sex: 64/F Req #: [id number] Adm Physician: Ordered by: RAFAELA MCADAMS DO Report #: [id number] Location: ER Room/Bed: Procedure: [id number] CT/CT ABDOMEN/PELVIS W Exam Date: 02/05/20 Exam [...] 386 mg/dL 74-106 H Performed by certified drill press operator for metal at [facility] [id number] 11:50:00* Test Item Value Reference Range Interpretation Comments GLUBED (test code = GLUBED) 247 mg/dL 74-106 H Performed by certified drill press operator for metal at [facility] [id number] 08:17:00* Test Item Value Reference Range Interpretation Comments GLUBED (test code = GLUBED) 226 mg/dL 74-106 H Performed by certified drill press operator for metal at [facility] BASIC METABOLIC [id number] 06:17:00* Test Item Value Reference Range Interpretation [...] CA) 8.8 mg/dL 8.5-10.1 N [employer] MET[employer]OLIC [id number] 05:54:00* Test Item Value Reference Range Interpretation [...] CALCIUM (test code = CA) mg/dL 8.5-10.1 [id number] 20:08:00* Test Item Value Reference Range Interpretation Comments GLUBED (test code = GLUBED) 161 mg/dL 74-106 H Performed by certified drill press operator for metal at [facility] [id number] 16:30:00* Test Item Value Reference Range Interpretation Comments GLUBED (test code = GLUBED) 120 mg/dL 74-106 H Performed by certified drill press operator for metal at [facility] [id number] 11:27:00* Test Item Value Reference Range Interpretation Comments GLUBED (test code = GLUBED) 164 mg/dL 74-106 H Performed by certified drill press operator for metal at [facility] - XR CHEST 1 [id number] 09:27:00 FAX: Jasen Frias MD [phone] [place]: St: ADM FAX: Rigo Mccormick MD [phone] FAX: Benjamin Francis MD [phone] Name: KALYANI TALAVERA [facility] : 1955 Age/S: 64/F [address] [facility] Unit #: [id number] Loc: V.40[address] [place] [address] Phys: Rigo Alexander MD Acct: [id number] Dis Date: Status: ADM IN ONE #: [phone] Exam Date: 01/27/2020 1040 FAX #: [phone] Reason: chf EXAMS: CPT CODE: [id number] XR CHEST 1 V 24806 HISTORY: CHF. COMPARISON: January 24, 2020. Location: [facility]. Suboptimal inspiration. Crowding of bronchovascular [...] RT(R); Donna Childers RT(R) Trnscrd Date/Time/By: 01/27/2020 (0911) : By: aniyah [email or web address] Orig Print D/T: S: 01/27/2020 (1041) P AGE 2 Signed Report GLUBED 2020-01-27 07:58:00* Test Item Value Reference Range Interpretation Comments GLUBED (test code = GLUBED) 127 mg/dL 74-106 H Performed by certified drill press operator for metal at [facility] [id number] 07:40:00* Test Item Value Reference Range Interpretation Comments GLUBED (test code = GLUBED) 116 mg/dL 74-106 H Performed by certified drill press operator for metal at [facility] [id number] 22:23:00* Test Item Value Reference Range Interpretation Comments GLUBED (test code = GLUBED) 259 mg/dL 74-106 H Performed by certified drill press operator for metal at [facility] [id number] 17:10:00* Test Item Value Reference Range Interpretation Comments GLUBED (test code = GLUBED) 219 mg/dL 74-106 H Performed by certified drill press operator for metal at [facility] [id number] 11:45:00* Test Item Value Reference Range Interpretation Comments GLUBED (test code = GLUBED) 265 mg/dL 74-106 H Performed by certified drill press operator for metal at [facility] [id number] 08:52:00* Test Item Value Reference Range Interpretation Comments GLUBED (test code = GLUBED) 317 mg/dL 74-106 H Performed by certified drill press operator for metal at [facility] [id number] 23:49:00* Test Item Value Reference Range Interpretation Comments GLUBED (test code = GLUBED) 327 mg/dL 74-106 H Performed by certified drill press operator for metal at [facility] [id number] 22:15:00* Test Item Value Reference Range Interpretation Comments GLUBED (test code = GLUBED) 339 mg/dL 74-106 H Performed by certified drill press operator for metal at [facility] [id number] 19:59:00* Test Item Value Reference Range Interpretation Comments GLUBED (test code = GLUBED) 497 mg/dL 74-106 H Performed by certified drill press operator for metal at [facility] [id number] 18:29:00* Test Item Value Reference Range Interpretation Comments GLUBED (test code = GLUBED) > 500 mg/dL 74-106 HH Per[facility] [id number] 16:00:00* Test Item Value Reference Range Interpretation Comments GLUBED (test code = GLUBED) 377 mg/dL 74-106 H Performed by certified drill press operator for metal at [facility] [id number] 12:09:00* Test Item Value Reference Range Interpretation Comments GLUBED (test code = GLUBED) 441 mg/dL 74-106 H Per[facility] BASIC METABOLIC [id number] 08:19:00* Test Item Value Reference Range Interpretation [...] CA) 8.7 mg/dL 8.5-10.1 N [employer] METAB[employer]IC [id number] 08:11:00* Test Item Value Reference Range Interpretation [...] CALCIUM (test code = CA) mg/dL 8.5-10.1 [id number] 08:00:00* Test Item Value Reference Range Interpretation Comments GLUBED (test code = GLUBED) 493 mg/dL 74-106 H Per[facility] [id number] 02:13:00* Test Item Value Reference Range Interpretation Comments GLUBED (test code = GLUBED) > 500 mg/dL 74-106 HH Per[facility] certified [facility] [id number] 02:13:00* Test Item Value Reference Range Interpretation Comments GLUBED (test code = GLUBED) > 500 mg/dL 74-106 HH Performed by certified drill press [facility] [id number] 21:24:00* Test Item Value Reference Range Interpretation Comments GLUBED (test code = GLUBED) 497 mg/dL 74-106 H Performed by certified drill press operator for metal at [facility] [id number] 21:24:00* Test Item Value Reference Range Interpretation Comments GLUBED (test code = GLUBED) > 500 mg/dL 74-106 HH Performed by certified drill [facility] BASIC METABOLIC [id number] 17:04:00* Test Item Value Reference Range Interpretation [...] CA) 8.6 mg/dL 8.5-10.1 N BASIC METABOLIC [id number] 16:49:00* Test Item Value Reference Range Interpretation [...] CALCIUM (test code = CA) mg/dL 8.5-10.1 [id number] 12:24:00* Test Item Value Reference Range Interpretation Comments GLUBED (test code = GLUBED) 344 mg/dL 74-106 H Performed by certified drill press operator for metal at [facility] CBC W/AUTO [id number] 08:32:00* Test Item Value Reference Range Interpretation [...] = MDIFF) NO, ONLY SCAN NEEDED DIFFERENTIAL [id number] 08:32:00* Test Item Value Reference Range Interpretation Comments STAIN ACCEPTABILITY (test code = STN ACCEPTABLE) STAIN ACCEPTABLE POLYCHROMASIA (test code = POLC) 1+ HYPOCHROMIA (test code = HYPO) 1+ POIKILOCYTOSIS (test code = POIK) 1+ ANISOCYTOSIS (test code = ANISO) 1+ PLATELET ESTIMATE (test code = PLTEST) ADEQUATE PLATELET MORPHOLOGY (test code = PLTMORPH) NORMAL URINALYSIS [id number] 07:09:00* Test Item Value Reference Range Interpretation [...] per HPF FEW Urine Source? Clean CatchURINALYSIS [id number] 07:05:00* Test Item Value Reference Range Interpretation [...] HPF NONE Urine Source? Clean CatchB-TYPE NATRIURETIC [id number] 06:41:00* Test Item Value Reference Range Interpretation Comments B-TYPE NATRIURETIC PEPTIDE (test code = BNP) 14.6 pgram/mL 0-100 N CBC W/AUTO [id number] 05:36:00* Test Item Value Reference Range Interpretation [...] = MDIFF) NO, ONLY SCAN NEEDED DIFFERENTIAL [id number] 05:36:00* Test Item Value Reference Range Interpretation Comments STAIN ACCEPTABILITY (test code = STN ACCEPTABLE) MORPHOLOGY COMMENT (test code = MOC) PLATELET ESTIMATE (test code = PLTEST) PLATELET MORPHOLOGY (test code = PLTMORPH) CBC W/AUTO [id number] 05:35:00* Test Item Value Reference Range Interpretation [...] = MDIFF) NO, ONLY SCAN NEEDED DIFFERENTIAL [id number] 05:35:00* Test Item Value Reference Range Interpretation Comments STAIN ACCEPTABILITY (test code = STN ACCEPTABLE) CABOT RINGS (test code = CAB) MORPHOLOGY COMMENT (test code = MOC) PLATELET ESTIMATE (test code = PLTEST) PLATELET MORPHOLOGY (test code = PLTMORPH) CBC W/AUTO [id number] 05:35:00* Test Item Value Reference Range Interpretation [...] = MDIFF) NO, ONLY SCAN NEEDED DIFFERENTIAL [id number] 05:35:00* Test Item Value Reference Range Interpretation Comments STAIN ACCEPTABILITY (test code = STN ACCEPTABLE) MORPHOLOGY COMMENT (test code = MOC) PLATELET ESTIMATE (test code = PLTEST) PLATELET MORPHOLOGY (test code = PLTMORPH) CBC W/AUTO [id number] 05:35:00* Test Item Value Reference Range Interpretation [...] = MDIFF) NO, ONLY SCAN NEEDED DIFFERENTIAL [id number] 05:35:00* Test Item Value Reference Range Interpretation Comments STAIN ACCEPTABILITY (test code = STN ACCEPTABLE) CABOT RINGS (test code = CAB) MORPHOLOGY COMMENT (test code = MOC) PLATELET ESTIMATE (test code = PLTEST) PLATELET MORPHOLOGY (test code = PLTMORPH) BASIC METABOLIC [id number] 05:31:00* Test Item Value Reference Range Interpretation [...] CA) 8.5 mg/dL 8.5-10.1 N HEPATIC FUNCTION [id number] 05:31:00* Test Item Value Reference Range Interpretation [...] reference range due to change in reagent. [id number] 05:31:00* Test Item Value Reference Range Interpretation Comments MAGNESIUM (test code = MAG) 2.1 mg/dL 1.8-2.4 N [id number] 05:31:00* Test Item Value Reference Range Interpretation Comments TROPONIN-I (test code = TROPI) <0.015 ng/mL 0-0.045 N COVID 19 INHOUSE [id number] 04:50:00* Test Item Value Reference Range Interpretation Comments COVID 19 INHOUSE AG (test code = [id number]) NEGATIVE Is patient requiring admission or transfer? YIndication for rapid COVID-19 testi ng: Mod Clinical Suspicion- XR CHEST 1 V 2020-01-24 04:35:00 FAX: Benjamin Francis MD [phone] [place]: B St: REG FAX: Anastacio Burgess MD Name: KALYANI TALAVERA [facility] : 1955 Age/S: 64/F [address] Unit #: [id number] Loc: V.[place], [place] [address] Phys: Anastacio Burgess MD Acct: [id number] Dis Date: Status: REG ER PHONE #: [phone] Exam Date: 01/24/2020424 FAX #: [phone] Reason: SHORTNESS OF BREATH EXAMS: CPT CODE: [id number] XR CHEST 1 V 97593 EXAM: - XR CHEST 1 V HISTORY: [...] Masters; Anastacio Burgess MD Technologist: JACINDA LYONS DIRECTOR PHARMACOLOGY Trnscrd Da te/Time/By: 01/24/2020 (0435) : By: [email or web address] Orig Print D/T: S: 01/23 (0438) PAGE 1 Signed Report [id number] 12:58:00* Test Item Value Reference Range Interpretation Comments GLUBED (test code = GLUBED) 54 mg/dL 74-106 L Performed by certified drill press operator for metal at [facility] BASIC METABOLIC [id number] 09:17:00* Test Item Value Reference Range Interpretation [...] CA) 8.8 mg/dL 8.5-10.1 N BASIC METABOLIC [id number] 09:06:00* Test Item Value Reference Range Interpretation [...] CALCIUM (test code = CA) mg/dL 8.5-10.1 [id number] 08:29:00* Test Item Value Reference Range Interpretation Comments GLUBED (test code = GLUBED) 160 mg/dL 74-106 H Performed by certified drill press operator for metal at [facility] [id number] 20:47:00* Test Item Value Reference Range Interpretation Comments GLUBED (test code = GLUBED) 210 mg/dL 74-106 H Performed by certified drill press operator for metal at [facility] [id number] 18:37:00* Test Item Value Reference Range Interpretation Comments GLUBED (test code = GLUBED) 91 mg/dL 74-106 N Performed by certified drill press operator for metal at [facility] BASIC METABOLIC [id number] 17:55:00* Test Item Value Reference Range Interpretation [...] CA) 8.5 mg/dL 8.5-10.1 N BASIC METABOLIC [id number] 17:50:00* Test Item Value Reference Range Interpretation [...] CA) mg/dL 8.5-10.1 - XR CHEST 1 [id number] 17:38:00 FAX: Benjamin Francis MD [phone] [place]: B St: ADM Name: KALYANI CATES [facility] : [birth year] Age/S: 64/F [address] Unit #: [id number] Loc: V.3042 [place] [address] Phys: Benjamin Masters MD Acct: [id number] Dis Date: Status: ADM IN PHONE #: [phone] Exam Date: 01/13/2020 1531 FAX #: [phone] Reason: CHF EXAMS: CPT CODE: [id number] XR CHEST 1 V 25550 EXAM: Chest x-ray, one view; INFORMATION: Shortness of breath, CHF; IMPRESSION: Moderate improvement compared with the recent study from January 11, 2020: The heart is decreased in size; mild cardiomegaly remains. Lung bases are better demarcated indicating resolution of interstitial edema; mild left heart failure remains. Location code: [facility] at 1738 Reported and signed by: Jc Bravo M.D. CC: Benjamin Masters Technologist: SAMPSON Soler) Trnscrd Date/Time/By: 01/13/2020 (4983) : By: LeanneGRW Orig Print D/T: S: 01/13/2020 (2930) PAGE 1 Signed Report [id number] 17:22:00* Test Item Value Reference Range Interpretation Comments GLUBED (test code = GLUBED) 84 mg/dL 74-106 N Performed by certified drill press operator for metal at [facility] [id number] 16:46:00* Test Item Value Reference Range Interpretation Comments GLUBED (test code = GLUBED) 65 mg/dL 74-106 L Performed by certified drill press operator for metal at [facility] BRONCH LAVAGE FLD CELL CT/[id number] 15:32:00* Test Item Value Reference Range Interpretation [...] [id number] Carlyle Markham BRONCHIAL [id number] 14:21:00 RUN DATE: 01/13/20 [facility] PAGE 1 RUN TIME: 1421 Specimen Inqui ry RUN USER: INTERFACE PATIENT: KALYANI TALAVERA ACCT #: [id number] LOC: [place] U #: [id number] AGE/SX: 64/F ROOM: [facility] RE01/07/20[facility] DR: Benjamin Masters MD : [birth year] BED: A DIS: STATUS: ADM IN TLOC: SPEC #: [id number] RECD: 01/10/20 STATUS: SHREYA BROWN #: [id number] MARILEE: 01/10/20- SUBM DR: Benjamin Masters MD ENTERED: 01/10/20 SP TYPE: BRONCH WA OTHR DR: Ivett Valderrama i, MD, Kuldip Kumar MD Nassif, George M MDORDERED: GROSS COPIES TO: Ivett Christianson MD [address] [place] [address] Harry Gutierrez MD [address] [place], [place] [id number] Rigo Alexander MD [address] [place] [address] Benjamin Murphy MD [address] [place] [address] PROCED URES: GROSS (01/13/20-1308) TISSUES: BRONCH LAVAGE - 60ML CLOUDY FLUID CLINICAL HISTORY COLLECTION DATE: 01/10/20 INTERSTITIAL LUNG DI SEASE FINAL DIAGNOSIS Left lingular bronchoalveolar lavage for cytol ogy and CD4/CD8 ratio: PULMONARY MACROPHAGES, NEUTROPHILS, AND A FEW COLU MNAR BRONCHIAL LINING CELLS NEGATIVE FOR MALIGNANCY CD4- CD8 RATIO 1.0: 1 (SEE INCLUDED ADX FLOW CYTOMETRY REPORT [id number]) CONTINUED ON NEXT PAGE RUN DATE: 01/13/20 [place] [facility] PAGE 2 RUN TIME: 1421 Specimen Inquiry RUN USER: INTERFACE -- SPEC #: [id number] PATIENT: KALYANI TALAVERA #[id number] (Continued) FINAL DIAGNOSIS (Continued) BRITTNI/corby Simpson [address], [address] FLOW CYTOMETRY A Flow cytometry repo rt is received from [employer] Case No:[id number] the int erpretation is as follows: Clinical [...] developed and its performance characteristics determined by [facility]. It has not been cleared or approved by the U.S. Food and Drug Administrat ion.The FDA has determined that such clearance is not necessary. This test is us ed for clinicalpurposes. It should not be regarded as investigational or for res earch. This laboratory iscertified under the Clinical Laboratory Improvement [place] ndments of 1987 (CLIA-88) as CONTINUED ON NEXT PAGE RUN DATE: 01/13/20 [place] [facility] PAGE 3 RUN TIME: 1421 Speci men Inquiry RUN USER: INTERFACE SPEC #: [id number] PATIENT: KALYANI MOSES #[id number] (Continued) FLOW CYTOMETRY (Continued) qualified to perform high complexity clinical te sting. The above report was reviewed and interpretive comments are provided. The comments areapproved for the medical records of the identified patient with my electronic signature. Electronic SignatureLamonte Iyer, Auto Crane Driver CPT C ode(s): 03859,10499(x21),33532 ICD Code(s): R89.7 The Technical and Professional components were performed at [facility], [address] [place] [address], [address], [place] [address] . MACROSCOPIC The specimen is designated as "left lingula BAL". It consists of 60 mL of cloudy fluid for processing and evaluation. Material will be submitted for CD4 CD8 ratio test. A cell block is prepared. GROSS PERFORMED AT [facility] [address] [place] [address] [phone] MICROSCOPIC All of the stains, including any controls pe rformed, stain appropriately. MICROSCOPIC PERFORMED AT [facility] [address] [place] [address] [phone] PERFORMING SITE Diagnosis performed at: [facility] [address] [address] CONTINUED ON NEXT PAGE RUN DATE: 01/13/20 [place] - Lab PAGE 4 RUN TIME: 1421 Specimen Inquiry RUN USER: Celestine MORENO Mary PICHARDO #: [id number] PATIENT: KALYANI TALAVERA #[id number] (Continued) Signed SIGNATURE ON FILE Petty Lowe MD 01/13/20 1421 END OF REPORT GLUBED 2020-01-13 12:45:00* Test Item Value Reference Range Interpretation Comments GLUBED (test code = GLUBED) 105 mg/dL 74-106 N Performed by certified drill press operator for metal at [facility] [id number] 08:07:00* Test Item Value Reference Range Interpretation Comments GLUBED (test code = GLUBED) 92 mg/dL 74-106 N Performed by certified drill press operator for metal at [facility] [id number] 19:54:00* Test Item Value Reference Range Interpretation Comments GLUBED (test code = GLUBED) 149 mg/dL 74-106 H Performed by certified drill press operator for metal at [facility] [id number] 17:05:00* Test Item Value Reference Range Interpretation Comments GLUBED (test code = GLUBED) 127 mg/dL 74-106 H Performed by certified drill press operator for metal at [facility] [id number] 12:02:00* Test Item Value Reference Range Interpretation Comments GLUBED (test code = GLUBED) 209 mg/dL 74-106 H Performed by certified drill press operator for metal at [facility] [id number] 08:45:00* Test Item Value Reference Range Interpretation Comments GLUBED (test code = GLUBED) 175 mg/dL 74-106 H Performed by certified drill press operator for metal at [facility] B-TYPE NATRIURETIC [id number] 07:19:00* Test Item Value Reference Range Interpretation Comments B-TYPE NATRIURETIC PEPTIDE (test code = BNP) 28.74 pgram/mL 0-100 N COMPREHENSIVE METABOLIC [id number] 07:07:00* Test Item Value Reference Range Interpretation [...] due to change in reagent. COMPREHENSIVE METABOLIC [id number] 06:56:00* Test Item Value Reference Range Interpretation [...] code = ALKP) IUnit/L 45-117 CBC W/AUTO [id number] 06:51:00* Test Item Value Reference Range Interpretation [...] code = NRBC#) 0.00 K/mm3 0.0-0.1 N [id number] 20:46:00* Test Item Value Reference Range Interpretation Comments GLUBED (test code = GLUBED) 257 mg/dL 74-106 H Performed by certified drill press operator for metal at [facility] - XR CHEST 1 [id number] 18:25:00 FAX: Alfa Moscoso MD [phone] [place]: St: [facility] FAX: Benjamin Francis MD [phone] Name: KALYANI TALAVERA [facility] : 1955 Age/S: 64/F [address] Unit #: [id number] Loc: V.3042 [place] [address] Phys: Alfa Cassidy MD Acct: [id number] Dis Date: Status: ADM IN PHONE #: [phone] Exam Date: 01/11/2020 1825 FAX #: [phone] Reason: CHF EXAMS: CPT CODE: [id number] XR CHEST 1 V 61571 REASON FOR EXAM: CHF Exam Order Date: [...] lung volumes with findings of CHF. Location: [facility] at 1825 Reported and signed by: Dago Goodson MD CC: Alfa Cassidy MD; Benjamin Masters Technologist: SCOOBY PARSONS RT(R); TAWANNA HURTADO RT(R) Trnscrd Date/Time/By: 01/11/2020 (1825) : By: [email or web address] Orig Print D/T: S: 01/11/2020 (7889) PAGE 1 Signed Report [id number] 16:50:00* Test Item Value Reference Range Interpretation Comments GLUBED (test code = GLUBED) 262 mg/dL 74-106 H Performed by certified drill press operator for metal at [facility] [id number] 12:17:00* Test Item Value Reference Range Interpretation Comments GLUBED (test code = GLUBED) 348 mg/dL 74-106 H Performed by certified drill press operator for metal at [facility] [id number] 08:51:00* Test Item Value Reference Range Interpretation Comments GLUBED (test code = GLUBED) 361 mg/dL 74-106 H Performed by certified drill press operator for metal at [facility] BRONCH LAVAGE FLD CELL CT/[id number] 22:17:00* Test Item Value Reference Range Interpretation [...] REVIEWED BY (test code = REVIEW) PATHOLOGIST [id number] 20:37:00* Test Item Value Reference Range Interpretation Comments GLUBED (test code = GLUBED) 334 mg/dL 74-106 H Performed by certified drill press operator for metal at [facility] [id number] 17:59:00* Test Item Value Reference Range Interpretation Comments GLUBED (test code = GLUBED) 310 mg/dL 74-106 H Performed by certified drill press operator for metal at [facility] [id number] 13:51:00* Test Item Value Reference Range Interpretation Comments GLUBED (test code = GLUBED) 260 mg/dL 74-106 H Performed by certified drill press operator for metal at [facility] BASIC METABOLIC [id number] 10:17:00* Test Item Value Reference Range Interpretation [...] CA) 8.6 mg/dL 8.5-10.1 N BASIC METABOLIC [id number] 10:13:00* Test Item Value Reference Range Interpretation [...] CALCIUM (test code = CA) mg/dL 8.5-10.1 [id number] 08:31:00* Test Item Value Reference Range Interpretation Comments GLUBED (test code = GLUBED) 191 mg/dL 74-106 H Performed by certified drill press operator for metal at [facility] CBC W/AUTO [id number] 07:02:00* Test Item Value Reference Range Interpretation [...] = MDIFF) NO, ONLY SCAN NEEDED DIFFERENTIAL [id number] 07:02:00* Test Item Value Reference Range Interpretation Comments STAIN ACCEPTABILITY (test code = STN ACCEPTABLE) STAIN ACCEPTABLE POLYCHROMASIA (test code = POLC) 1+ ANISOCYTOSIS (test code = ANISO) 2+ MICROCYTOSIS (test code = MICR) 2+ MORPHOLOGY COMMENT (test code = MOC) TEST NOT PERFORMED PLATELET ESTIMATE (test code = PLTEST) ADEQUATE PLATELET MORPHOLOGY (test code = PLTMORPH) NORMAL COMPREHENSIVE METABOLIC [id number] 05:34:00* Test Item Value Reference Range Interpretation [...] due to change in reagent. CBC W/AUTO [id number] 05:30:00* Test Item Value Reference Range Interpretation [...] = MDIFF) NO, ONLY SCAN NEEDED DIFFERENTIAL [id number] 05:30:00* Test Item Value Reference Range Interpretation Comments STAIN ACCEPTABILITY (test code = STN ACCEPTABLE) CABOT RINGS (test code = CAB) MORPHOLOGY COMMENT (test code = MOC) PLATELET ESTIMATE (test code = PLTEST) PLATELET MORPHOLOGY (test code = PLTMORPH) CBC W/AUTO [id number] 05:30:00* Test Item Value Reference Range Interpretation [...] = MDIFF) NO, ONLY SCAN NEEDED DIFFERENTIAL [id number] 05:30:00* Test Item Value Reference Range Interpretation Comments STAIN ACCEPTABILITY (test code = STN ACCEPTABLE) CABOT RINGS (test code = CAB) MORPHOLOGY COMMENT (test code = MOC) PLATELET ESTIMATE (test code = PLTEST) PLATELET MORPHOLOGY (test code = PLTMORPH) CBC W/AUTO [id number] 05:30:00* Test Item Value Reference Range Interpretation [...] = MDIFF) NO, ONLY SCAN NEEDED DIFFERENTIAL [id number] 05:30:00* Test Item Value Reference Range Interpretation Comments STAIN ACCEPTABILITY (test code = STN ACCEPTABLE) MORPHOLOGY COMMENT (test code = MOC) PLATELET ESTIMATE (test code = PLTEST) PLATELET MORPHOLOGY (test code = PLTMORPH) CBC W/AUTO [id number] 05:30:00* Test Item Value Reference Range Interpretation [...] = MDIFF) NO, ONLY SCAN NEEDED DIFFERENTIAL [id number] 05:30:00* Test Item Value Reference Range Interpretation Comments STAIN ACCEPTABILITY (test code = STN ACCEPTABLE) CABOT RINGS (test code = CAB) MORPHOLOGY COMMENT (test code = MOC) PLATELET ESTIMATE (test code = PLTEST) PLATELET MORPHOLOGY (test code = PLTMORPH) COMPREHENSIVE METABOLIC [id number] 05:24:00* Test Item Value Reference Range Interpretation [...] TOTAL (test code = ALKP) IUnit/L 45-117 [id number] 20:32:00* Test Item Value Reference Range Interpretation Comments GLUBED (test code = GLUBED) 108 mg/dL 74-106 H Performed by certified drill press operator for metal at [facility] [id number] 16:44:00* Test Item Value Reference Range Interpretation Comments GLUBED (test code = GLUBED) 125 mg/dL 74-106 H Performed by certified drill press operator for metal at [facility] Coronavirus 2019 nCoV [id number] 16:38:00* Test Item Value Reference Range Interpretation Comments Coronavirus 2019 nCoV Bedside (test code = COVNONPUIBED) Negative [id number] 12:17:00* Test Item Value Reference Range Interpretation Comments GLUBED (test code = GLUBED) 171 mg/dL 74-106 H Performed by certified drill press operator for metal at [facility] [id number] 08:34:00* Test Item Value Reference Range Interpretation Comments GLUBED (test code = GLUBED) 341 mg/dL 74-106 H Performed by certified drill press operator for metal at [facility] - CT CHEST W/[id number] 06:53:00 Name: KALYANI TALAVERA [facility] : 1955 Age/S: 64 / F [address] Unit #: [id number] Loc: [place] [address] Phys: Rigo Alexander MD Acct: [id number] Dis Date: Status: ADM IN PHONE #: [phone] Exam Date: 01/08/20204 FAX #: [phone] Reason: interstitial lung disease, pulmonary HTN EXAMS: CPT CODE: [id number] CT CHEST W/CONTRAST 26930 HISTORY: Interstitial lung disease and pulmonary hypertension. [...] and signed by: Solomon Chowdhury M.D. CC: Riog Alexander MD; Alfa Cassidy MD; Benjamin Masters Technologist:RADHA CLEMENTS(R)(CT); JORDEN CTDI: DLP: Trnscb Date/Time: 01/09/2020 (065 3) t.SDR.TH4 Orig Print D/T: S: 01/09/2020 (0656) YANETH VARGAS 1 Signed Report PROTHROMBIN [id number] 05:24:00* Test Item Value Reference Range Interpretation [...] (2.5-3.5) IS PATIENT ON ANTICOAGULANTS? NTHROMBOPLASTIN TIME [id number] 05:24:00* Test Item Value Reference Range Interpretation Comments THROMBOPLASTIN TIME PARTIAL (test code = PTT) 27.5 seconds 23.0-37. 0 N IS PATIENT ON ANTICOAGULANTS? [id number] 20:06:00* Test Item Value Reference Range Interpretation Comments GLUBED (test code = GLUBED) 162 mg/dL 74-106 H Performed by certified drill press operator for metal at [facility] [id number] 17:04:00* Test Item Value Reference Range Interpretation Comments GLUBED (test code = GLUBED) 135 mg/dL 74-106 H Performed by certified drill press operator for metal at [facility] [id number] 12:10:00* Test Item Value Reference Range Interpretation Comments GLUBED (test code = GLUBED) 375 mg/dL 74-106 H Performed by certified drill press operator for metal at [facility] [id number] 08:11:00* Test Item Value Reference Range Interpretation Comments GLUBED (test code = GLUBED) 259 mg/dL 74-106 H Performed by certified drill press operator for metal at [facility] CBC W/AUTO [id number] 05:20:00* Test Item Value Reference Range Interpretation [...] = MDIFF) NO, ONLY SCAN NEEDED DIFFERENTIAL [id number] 05:20:00* Test Item Value Reference Range Interpretation [...] (test code = PLTMORPH) NORMAL B-TYPE NATRIURETIC [id number] 05:03:00* Test Item Value Reference Range Interpretation Comments B-TYPE NATRIURETIC PEPTIDE (test code = BNP) 24.60 pgram/mL 0-100 N COMPREHENSIVE METABOLIC [id number] 04:59:00* Test Item Value Reference Range Interpretation [...] due to change in reagent. COMPREHENSIVE METABOLIC [id number] 04:50:00* Test Item Value Reference Range Interpretation [...] code = ALKP) IUnit/L 45-117 CBC W/AUTO [id number] 04:45:00* Test Item Value Reference Range Interpretation [...] = MDIFF) NO, ONLY SCAN NEEDED DIFFERENTIAL [id number] 04:45:00* Test Item Value Reference Range Interpretation Comments STAIN ACCEPTABILITY (test code = STN ACCEPTABLE) CABOT RINGS (test code = CAB) MORPHOLOGY COMMENT (test code = MOC) PLATELET ESTIMATE (test code = PLTEST) PLATELET MORPHOLOGY (test code = PLTMORPH) CBC W/AUTO [id number] 04:45:00* Test Item Value Reference Range Interpretation [...] = MDIFF) NO, ONLY SCAN NEEDED DIFFERENTIAL [id number] 04:45:00* Test Item Value Reference Range Interpretation Comments STAIN ACCEPTABILITY (test code = STN ACCEPTABLE) CABOT RINGS (test code = CAB) MORPHOLOGY COMMENT (test code = MOC) PLATELET ESTIMATE (test code = PLTEST) PLATELET MORPHOLOGY (test code = PLTMORPH) CBC W/AUTO [id number] 04:45:00* Test Item Value Reference Range Interpretation [...] = MDIFF) NO, ONLY SCAN NEEDED DIFFERENTIAL [id number] 04:45:00* Test Item Value Reference Range Interpretation Comments STAIN ACCEPTABILITY (test code = STN ACCEPTABLE) MORPHOLOGY COMMENT (test code = MOC) PLATELET ESTIMATE (test code = PLTEST) PLATELET MORPHOLOGY (test code = PLTMORPH) CBC W/AUTO [id number] 04:45:00* Test Item Value Reference Range Interpretation [...] = MDIFF) NO, ONLY SCAN NEEDED DIFFERENTIAL [id number] 04:45:00* Test Item Value Reference Range Interpretation Comments STAIN ACCEPTABILITY (test code = STN ACCEPTABLE) CABOT RINGS (test code = CAB) MORPHOLOGY COMMENT (test code = MOC) PLATELET ESTIMATE (test code = PLTEST) PLATELET MORPHOLOGY (test code = PLTMORPH) [id number] 23:24:00* Test Item Value Reference Range Interpretation Comments GLUBED (test code = GLUBED) 292 mg/dL 74-106 H Performed by certified drill press operator for metal at [facility] [id number] 19:46:00* Test Item Value Reference Range Interpretation Comments GLUBED (test code = GLUBED) 306 mg/dL 74-106 H Performed by certified drill press operator for metal at [facility] - XR CHEST 1 [id number] 19:39:00 FAX: Rigo Mccormick MD [phone] [place]: St: [facility] FAX: Alfa Moscoso MD [phone] FAX: Benjamin Francis MD [phone] Name: KALYANI TALAVERA [facility] : 1955 Age/S: 64/F [address] [facility] Unit #: [id number] Loc: V.3042 [place] [address] Phys: Rigo Alexander MD Acct: [id number] Dis Date: Status: ADM IN [facility] #: [phone] Exam Date: 01/07/2020 183 FAX #: [phone] Reason: chf EXAMS: CPT CODE: [id number] XR CHEST 1 V 19848 EXAM: Chest x- ray, one view; INFORMATION: Shortness of breath, CHF; IMPRESSION: 1. Compared with yesterday's study, the left lung is sli ghtly better aerated; 2. No further significant changes; persist ent cardiomegaly and interstitial edema consistent with left heart failu re. Location code: [facility] Electronically Sig rainer by Gregory Bravo on 01/07/2020 at 1939 Reported and signed by: Jc Bravo M.D. CC: Rigo Alexander MD; Alfa Cassidy MD; Benjamin Masters Technologist: Sagar Ruiz RT(R Trnscrd Date/Time/By: 01/07/2020 (1938) : By: Dannielle Orig Print D/T: S: 0 01/07/2020 (1941) PAGE 1 Signed Re port [id number] 16:14:00* Test Item Value Reference Range Interpretation Comments GLUBED (test code = GLUBED) 67 mg/dL 74-106 L Performed by certified drill press operator for metal at [facility] [id number] 11:11:00* Test Item Value Reference Range Interpretation Comments GLUBED (test code = GLUBED) 320 mg/dL 74-106 H Performed by certified drill press operator for metal at [facility] [id number] 07:56:00* Test Item Value Reference Range Interpretation Comments GLUBED (test code = GLUBED) 426 mg/dL 74-106 H Performed by certified drill press operator for metal at [facility] [id number] 20:36:00* Test Item Value Reference Range Interpretation Comments GLUBED (test code = GLUBED) > 500 mg/dL 74-106 HH Performed by certified drill press operator for metal at [facility] - [facility] W/[id number] 20:29:00 Name: KALYANI TALAVERA [facility] : 1955 Age/S: 64 / F [address] [facility] Unit #: [id number] Loc: [place] [address] Phys: Rigo Alexander MD Acct: [id number] Dis Date: Status: ADM IN PHONE #: [phone] Exam Date: 01/06/2020 1950 FAX #: [phone] Reason: pleural effusions EXAMS: CPT CODE: [id number] US CHST W/MEDIASTINUM 87239 EXAM: Ultrasound of the chest; INFORMATION: Shortness of breath, pleural effusions? IMPRESSION: No sonographic evidence of pleural effusions. Location code: [facility] at 2028 Reported and signed by: Jc Bravo M.D. CC: Rigo Alexander MD; Benjamin Masters Technologist: Tamy Lanier RDMS Trnscb Date/Time: 01/06/2020 (2028) Dannielle Orig Print D/T: S: 01/06/2020 (2031) Probe: PAGE 1 Signed Report [id number] 18:13:00* Test Item Value Reference Range Interpretation Comments GLUBED (test code = GLUBED) > 500 mg/dL 74-106 HH Performed by certified drill press operator for metal at [facility] [id number] 16:16:00* Test Item Value Reference Range Interpretation Comments GLUBED (test code = GLUBED) > 500 mg/dL 74-106 HH Performed by certified drill press operator for metal at [facility] [id number] 13:43:00* Test Item Value Reference Range Interpretation Comments TROPONIN-I (test code = TROPI) <0.015 ng/mL 0-0.045 N COMMENTS TO LINE COOK: COLLECT 3 HOURS AFTER PREVIOUS SAMPLEB-TYPE NATRIURETIC [id number] 10:13:00* Test Item Value Reference Range Interpretation Comments B-TYPE NATRIURETIC PEPTIDE (test code = BNP) 44.58 pgram/mL 0-100 N BASIC METABOLIC [id number] 06:56:00* Test Item Value Reference Range Interpretation [...] code = CA) 8.8 mg/dL 8.5-10.1 N [id number] 06:56:00* Test Item Value Reference Range Interpretation Comments TROPONIN-I (test code = TROPI) <0.015 ng/mL 0-0.045 N BASIC METABOLIC [id number] 06:43:00* Test Item Value Reference Range Interpretation [...] CALCIUM (test code = CA) mg/dL 8.5-10.1 [id number] 06:43:00* Test Item Value Reference Range Interpretation Comments TROPONIN-I (test code = TROPI) ng/mL 0-0.045 CBC W/O [id number] 06:22:00* Test Item Value Reference Range Interpretation [...] fL 6.7-11.0 N - XR CHEST 1 [id number] 06:03:00 FAX: Colton Khalil MD [phone] [place]: St: [facility] FAX: Benjamin Francis MD [phone] Name: KALYANI TALAVERA [facility] : 1955 Age/S: 64/F [address] [facility] Unit #: [id number] Loc: [place] [address] Phys: Colton Khalil MD Acct: [id number] Dis Date: Status: REG ER PHONE #: [phone] Exam Date: 01/06/2020 0539 FAX #: [phone] Reason: Shortness of Breath EXAMS: CPT CODE: [id number] XR CHEST 1 V 25203 HISTORY: Shortness of breath Location: C3 COMPARISON:12/23/2019 FINDINGS: There is cardiomegaly with vascular congestion perihilar opacity. No pneumothorax. No other changes compared to prior study. IMPRESSION: 1. Findings of CHF/volume overload increased compared to prior exam. at 0603 Reported and signed by: Kizzy Dietrich MD CC: Colton Khalil MD; Benjamin Masters Technologist: Kizzy Cisse RT(R) Trnscrd Date/Time/By: 01/06/2020 (602) : By: [email or web address] Orig Print D/T: S: 01/06/2020 (8500) PAGE 1 Signed Report [id number] 07:49:00* Test Item Value Reference Range Interpretation Comments GLUBED (test code = GLUBED) 237 mg/dL 74-106 H Performed by certified drill press operator for metal at [facility] BASIC METABOLIC [id number] 05:57:00* Test Item Value Reference Range Interpretation [...] CA) 8.5 mg/dL 8.5-10.1 N BASIC METABOLIC [id number] 05:49:00* Test Item Value Reference Range Interpretation [...] CALCIUM (test code = CA) mg/dL 8.5-10.1 [id number] 20:28:00* Test Item Value Reference Range Interpretation Comments GLUBED (test code = GLUBED) 211 mg/dL 74-106 H Performed by certified drill press operator for metal at [facility] [id number] 17:59:00* Test Item Value Reference Range Interpretation Comments GLUBED (test code = GLUBED) 254 mg/dL 74-106 H Performed by certified drill press operator for metal at [facility] [id number] 17:59:00* Test Item Value Reference Range Interpretation Comments GLUBED (test code = GLUBED) 259 mg/dL 74-106 H Performed by certified drill press operator for metal at [facility] BASIC METABOLIC [id number] 11:13:00* Test Item Value Reference Range Interpretation [...] CA) 8.2 mg/dL 8.5-10.1 L BASIC METABOLIC [id number] 11:08:00* Test Item Value Reference Range Interpretation [...] CALCIUM (test code = CA) mg/dL 8.5-10.1 [id number] 08:42:00* Test Item Value Reference Range Interpretation Comments GLUBED (test code = GLUBED) 195 mg/dL 74-106 H Performed by certified drill press operator for metal at [facility] [id number] 20:18:00* Test Item Value Reference Range Interpretation Comments GLUBED (test code = GLUBED) 238 mg/dL 74-106 H Performed by certified drill press operator for metal at [facility] [id number] 16:32:00* Test Item Value Reference Range Interpretation Comments GLUBED (test code = GLUBED) 149 mg/dL 74-106 H Performed by certified drill press operator for metal at [facility] [id number] 12:15:00* Test Item Value Reference Range Interpretation Comments GLUBED (test code = GLUBED) 189 mg/dL 74-106 H Performed by certified drill press operator for metal at [facility] BASIC METABOLIC [id number] 09:00:00* Test Item Value Reference Range Interpretation [...] code = CA) 8.4 mg/dL 8.5-10.1 L [id number] 09:00:00* Test Item Value Reference Range Interpretation Comments MAGNESIUM (test code = MAG) 1.9 mg/dL 1.8-2.4 N [id number] 07:52:00* Test Item Value Reference Range Interpretation Comments GLUBED (test code = GLUBED) 251 mg/dL 74-106 H Performed by certified drill press operator for metal at [facility] [id number] 22:38:00* Test Item Value Reference Range Interpretation Comments GLUBED (test code = GLUBED) 157 mg/dL 74-106 H Performed by certified drill press operator for metal at [facility] [id number] 21:25:00* Test Item Value Reference Range Interpretation Comments GLUBED (test code = GLUBED) 154 mg/dL 74-106 H Performed by certified drill press operator for metal at [facility] [id number] 16:46:00* Test Item Value Reference Range Interpretation Comments GLUBED (test code = GLUBED) 156 mg/dL 74-106 H Performed by certified drill press operator for metal at [facility] [id number] 10:44:00* Test Item Value Reference Range Interpretation Comments GLUBED (test code = GLUBED) 240 mg/dL 74-106 H Performed by certified drill press operator for metal at [facility] [id number] 07:55:00* Test Item Value Reference Range Interpretation Comments GLUBED (test code = GLUBED) 178 mg/dL 74-106 H Performed by certified drill press operator for metal at [facility] BASIC METABOLIC [id number] 06:00:00* Test Item Value Reference Range Interpretation [...] code = CA) 8.4 mg/dL 8.5-10.1 L [id number] 06:00:00* Test Item Value Reference Range Interpretation Comments MAGNESIUM (test code = MAG) 2.0 mg/dL 1.8-2.4 N [id number] 21:31:00* Test Item Value Reference Range Interpretation Comments GLUBED (test code = GLUBED) 461 mg/dL 74-106 H Performed by certified drill press operator for metal at [facility] [id number] 15:49:00* Test Item Value Reference Range Interpretation Comments GLUBED (test code = GLUBED) 400 mg/dL 74-106 H Performed by certified drill press operator for metal at [facility] [id number] 12:49:00* Test Item Value Reference Range Interpretation Comments GLUBED (test code = GLUBED) 339 mg/dL 74-106 H Performed by certified drill press operator for metal at [facility] [id number] 07:41:00* Test Item Value Reference Range Interpretation Comments GLUBED (test code = GLUBED) 328 mg/dL 74-106 H Performed by certified drill press operator for metal at [facility] BASIC METABOLIC [id number] 05:42:00* Test Item Value Reference Range Interpretation [...] CA) 8.5 mg/dL 8.5-10.1 N BASIC METABOLIC [id number] 05:33:00* Test Item Value Reference Range Interpretation [...] CALCIUM (test code = CA) mg/dL 8.5-10.1 [id number] 03:29:00* Test Item Value Reference Range Interpretation Comments GLUBED (test code = GLUBED) 221 mg/dL 74-106 H Performed by certified drill press operator for metal at [facility] [id number] 20:20:00* Test Item Value Reference Range Interpretation Comments GLUBED (test code = GLUBED) 406 mg/dL 74-106 H Performed by certified drill press operator for metal at [facility] [id number] 18:02:00* Test Item Value Reference Range Interpretation Comments TROPONIN-I (test code = TROPI) <0.015 ng/mL 0-0.045 N COMMENTS TO LINE COOK: COLLECT 3 HOURS AFTER PREVIOUS [id number] 17:46:00* Test Item Value Reference Range Interpretation Comments MAGNESIUM (test code = MAG) 2.0 mg/dL 1.8-2.4 N [id number] 17:35:00* Test Item Value Reference Range Interpretation Comments GLUBED (test code = GLUBED) 363 mg/dL 74-106 H Performed by certified drill press operator for metal at [facility] [id number] 13:25:00* Test Item Value Reference Range Interpretation Comments TROPONIN-I (test code = TROPI) <0.015 ng/mL 0-0.045 N COMMENTS TO LINE COOK: COLLECT 3 HOURS AFTER PREVIOUS SAMPLEURINALYSIS [id number] 10:05:00* Test Item Value Reference Range Interpretation [...] #/HPF NONE A Urine Source? Clean CatchURINALYSIS [id number] 10:05:00* Test Item Value Reference Range Interpretation [...] A Urine Source? Clean CatchCoronavirus 2018 nCoV [id number] 07:24:00* Test Item Value Reference Range Interpretation Comments Coronavirus 2018 nCoV Bedside (test code = [id number]) Negative Is patient requiring admission or transfer? [...] = MDIFF) NO, ONLY SCAN NEEDED DIFFERENTIAL [id number] 07:22:00* Test Item Value Reference Range Interpretation Comments STAIN ACCEPTABILITY (test code = STN ACCEPTABLE) STAIN ACCEPTABLE POLYCHROMASIA (test code = POLC) 1+ POIKILOCYTOSIS (test code = POIK) 1+ ANISOCYTOSIS (test code = ANISO) 1+ MICROCYTOSIS (test code = MICR) 1+ PLATELET ESTIMATE (test code = PLTEST) DECREASED PLATELET MORPHOLOGY (test code = PLTMORPH) NORMAL B-TYPE NATRIURETIC [id number] 07:19:00* Test Item Value Reference Range Interpretation Comments B-TYPE NATRIURETIC PEPTIDE (test code = BNP) 38.62 pgram/mL 0-100 N BASIC METABOLIC [id number] 06:41:00* Test Item Value Reference Range Interpretation [...] CA) 8.7 mg/dL 8.5-10.1 N HEPATIC FUNCTION [id number] 06:41:00* Test Item Value Reference Range Interpretation [...] reference range due to change in reagent. [id number] 06:41:00* Test Item Value Reference Range Interpretation Comments LIPASE (test code = LIP) 91 U/L 73.0-393.0 N [id number] 06:41:00* Test Item Value Reference Range Interpretation Comments TROPONIN-I (test code = TROPI) <0.015 ng/mL 0-0.045 N PROTHROMBIN [id number] 06:31:00* Test Item Value Reference Range Interpretation [...] (2.5-3.5) IS PATIENT ON ANTICOAGULANTS? NTHROMBOPLASTIN TIME [id number] 06:31:00* Test Item Value Reference Range Interpretation Comments THROMBOPLASTIN TIME PARTIAL (test code = PTT) 30.8 seconds 23.0-37. 0 N IS PATIENT ON ANTICOAGULANTS? NCBC W/AUTO [id number] 06:30:00* Test Item Value Reference Range Interpretation [...] = MDIFF) NO, ONLY SCAN NEEDED DIFFERENTIAL [id number] 06:30:00* Test Item Value Reference Range Interpretation Comments STAIN ACCEPTABILITY (test code = STN ACCEPTABLE) CABOT RINGS (test code = CAB) MORPHOLOGY COMMENT (test code = MOC) PLATELET ESTIMATE (test code = PLTEST) PLATELET MORPHOLOGY (test code = PLTMORPH) BASIC METABOLIC [id number] 06:30:00* Test Item Value Reference Range Interpretation [...] code = CA) mg/dL 8.5-10.1 HEPATIC FUNCTION [id number] 06:30:00* Test Item Value Reference Range Interpretation [...] TOTAL (test code = ALKP) IUnit/L 45-117 [id number] 06:30:00* Test Item Value Reference Range Interpretation Comments LIPASE (test code = LIP) U/L 73.0-393.0 [id number] 06:30:00* Test Item Value Reference Range Interpretation Comments TROPONIN-I (test code = TROPI) ng/mL 0-0.045 CBC W/AUTO [id number] 06:30:00* Test Item Value Reference Range Interpretation [...] = MDIFF) NO, ONLY SCAN NEEDED DIFFERENTIAL [id number] 06:30:00* Test Item Value Reference Range Interpretation Comments STAIN ACCEPTABILITY (test code = STN ACCEPTABLE) CABOT RINGS (test code = CAB) MORPHOLOGY COMMENT (test code = MOC) PLATELET ESTIMATE (test code = PLTEST) PLATELET MORPHOLOGY (test code = PLTMORPH) CBC W/AUTO [id number] 06:30:00* Test Item Value Reference Range Interpretation [...] = MDIFF) NO, ONLY SCAN NEEDED DIFFERENTIAL [id number] 06:30:00* Test Item Value Reference Range Interpretation Comments STAIN ACCEPTABILITY (test code = STN ACCEPTABLE) MORPHOLOGY COMMENT (test code = MOC) PLATELET ESTIMATE (test code = PLTEST) PLATELET MORPHOLOGY (test code = PLTMORPH) CBC W/AUTO [id number] 06:30:00* Test Item Value Reference Range Interpretation [...] = MDIFF) NO, ONLY SCAN NEEDED DIFFERENTIAL [id number] 06:30:00* Test Item Value Reference Range Interpretation Comments STAIN ACCEPTABILITY (test code = STN ACCEPTABLE) CABOT RINGS (test code = CAB) MORPHOLOGY COMMENT (test code = MOC) PLATELET ESTIMATE (test code = PLTEST) PLATELET MORPHOLOGY (test code = PLTMORPH) - XR CHEST 1 [id number] 05:45:00 FAX: Benjamin Francis MD [phone] [place]: St: REG FAX: Leonora Norton [phone] Name: KALYANI TALAVERA [facility] : 1955 Age/S: 64/F [address] [facility] Unit #: [id number] Loc: [place] [address] Phys: Leonora Goins MD Acct: [id number] Dis Date: Status: REG ER PHONE #: [phone] Exam Date: 12/23/2019530 FAX #: [phone] Reason: SHORTNESS OF BREATH EXAMS: CPT CODE: [id number] XR CHEST 1 V 51766 AFTER HOURS SERVICE ON: 12/23/2019 5:44 AM [...] By: [email or web address] Orig Print D/T: S: 12/23/2019 (7909) PAGE 1 Signed Report B-TYPE NATRIURETIC [id number] 05:44:00* Test Item Value Reference Range Interpretation Comments B-TYPE NATRIURETIC PEPTIDE (test code = BNP) 38.94 pgram/mL 0-100 N Coronavirus 2019 nCoV [id number] 04:56:00* Test Item Value Reference Range Interpretation Comments Coronavirus 2019 nCoV Bedside (test code = [id number]) Negative Is patient requiring admission or transfer? YIndication for rapid COVID-19 testi ng: Mod Clinical SuspicionBASIC METABOLIC [id number] 04:48:00* Test Item Value Reference Range Interpretation [...] code = CA) 8.8 mg/dL 8.5-10.1 N [id number] 04:48:00* Test Item Value Reference Range Interpretation Comments TROPONIN-I (test code = TROPI) <0.015 ng/mL 0-0.045 N CBC W/O [id number] 04:39:00* Test Item Value Reference Range Interpretation [...] MPV) 10.6 fL 6.7-11.0 N BASIC METABOLIC [id number] 04:37:00* Test Item Value Reference Range Interpretation [...] CALCIUM (test code = CA) mg/dL 8.5-10.1 [id number] 04:37:00* Test Item Value Reference Range Interpretation Comments TROPONIN-I (test code = TROPI) ng/mL 0-0.045 - XR CHEST 1 [id number] 03:58:00 FAX: Benjamin Francis MD [phone] [place]: B St: REG FAX: Vince Jones DO Name: KALYANI TALAVERA [facility] : 1955 Age/S: 64/F [address] Unit #: [id number] Loc: [place] [address] Phys: Vince Jones DO Acct: [id number] Dis Date: Status: REG ER PHONE #: [phone] Exam Date: 12/16/2019 0349 FAX #: [phone] Reason: Shortness of Breath EXAMS: CPT CODE: [id number] XR CHEST 1 V 42953 EXAM: - XR CHEST 1 V HISTORY: [...] Masters; Vince Jones DO Technologist: RT JOSÉ MIGUEL(R) Trn scrd Date/Time/By: 12/16/2019 (0358) : By: [email or web address] Orig Print D/T: S : 12/16/2019 (0402) PAGE 1 Signed Report B-TYPE NATRIURETIC [id number] 03:51:00* Test Item Value Reference Range Interpretation Comments B-TYPE NATRIURETIC PEPTIDE (test code = BNP) 93.94 pgram/mL 0-100 N BASIC METABOLIC [id number] 03:42:00* Test Item Value Reference Range Interpretation [...] code = CA) 8.9 mg/dL 8.5-10.1 N [id number] 03:42:00* Test Item Value Reference Range Interpretation Comments TROPONIN-I (test code = TROPI) <0.015 ng/mL 0-0.045 N - XR CHEST 1 [id number] 03:13:00 FAX: Jani Roque [phone] [place]: St: [facility] FAX: Benjamin Francis MD [phone] Name: KALYANI TALAVERA [facility] : 1955 Age/S: 64/F [address] [facility] Unit #: [id number] Loc: [place] [address] Phys: Jani Roque MD Acct: [id number] Dis Date: Status: REG ER PHONE #: [phone] Exam Date: 12/12/2019 0233 FAX #: [phone] Reason: Shortness of Breath EXAMS: CPT CODE: [id number] XR CHEST 1 V 86554 - XR CHEST 1 V, 12/12/2019 2:26 [...] By: [email or web address] Orig Print D/T: S: 12/12/2019 (0316) PAGE 1 Signed Report PROTHROMBIN [id number] 03:11:00* Test Item Value Reference Range Interpretation [...] (2.5-3.5) IS PATIENT ON ANTICOAGULANTS? NTHROMBOPLASTIN TIME [id number] 03:11:00* Test Item Value Reference Range Interpretation Comments THROMBOPLASTIN TIME PARTIAL (test code = PTT) 33.6 seconds 23.0-37. 0 N IS PATIENT ON ANTICOAGULANTS? NBASIC METABOLIC [id number] 03:05:00* Test Item Value Reference Range Interpretation [...] code = CA) 8.9 mg/dL 8.5-10.1 N [id number] 03:05:00* Test Item Value Reference Range Interpretation Comments TROPONIN-I (test code = TROPI) ng/mL 0-0.045 CBC W/O [id number] 02:54:00* Test Item Value Reference Range Interpretation [...] code = MPV) 10.0 fL 6.7-11.0 N [id number] 15:43:00* Test Item Value Reference Range Interpretation Comments GLUBED (test code = GLUBED) 157 mg/dL 74-106 H Performed by certified drill press operator for metal at [facility] BASIC METABOLIC [id number] 14:27:00* Test Item Value Reference Range Interpretation [...] CA) 8.5 mg/dL 8.5-10.1 N BASIC METABOLIC [id number] 14:23:00* Test Item Value Reference Range Interpretation [...] code = CA) 8.5 mg/dL 8.5-10.1 N [id number] 11:31:00* Test Item Value Reference Range Interpretation Comments GLUBED (test code = GLUBED) 92 mg/dL 74-106 N Performed by certified drill press operator for metal at [facility] [id number] 07:50:00* Test Item Value Reference Range Interpretation Comments GLUBED (test code = GLUBED) 172 mg/dL 74-106 H Performed by certified drill press operator for metal at [facility] [id number] 00:32:00* Test Item Value Reference Range Interpretation Comments GLUBED (test code = GLUBED) 71 mg/dL 74-106 L Performed by certified drill press operator for metal at [facility] [id number] 21:13:00* Test Item Value Reference Range Interpretation Comments GLUBED (test code = GLUBED) 110 mg/dL 74-106 H Performed by certified drill press operator for metal at [facility] [id number] 16:45:00* Test Item Value Reference Range Interpretation Comments GLUBED (test code = GLUBED) 192 mg/dL 74-106 H Performed by certified drill press operator for metal at [facility] BASIC METABOLIC [id number] 15:12:00* Test Item Value Reference Range Interpretation [...] code = CA) 8.3 mg/dL 8.5-10.1 L [id number] 15:12:00* Test Item Value Reference Range Interpretation Comments MAGNESIUM (test code = MAG) 2.2 mg/dL 1.8-2.4 N BASIC METABOLIC [id number] 15:07:00* Test Item Value Reference Range Interpretation [...] CALCIUM (test code = CA) mg/dL 8.5-10.1 [id number] 15:07:00* Test Item Value Reference Range Interpretation Comments MAGNESIUM (test code = MAG) mg/dL 1.8-2.4 [id number] 13:08:00* Test Item Value Reference Range Interpretation Comments GLUBED (test code = GLUBED) 107 mg/dL 74-106 H Performed by certified drill press operator for metal [facility] [id number] 08:18:00* Test Item Value Reference Range Interpretation Comments GLUBED (test code = GLUBED) 184 mg/dL 74-106 H Performed by certified drill press operator for metal at [facility] [id number] 06:54:00* Test Item Value Reference Range Interpretation Comments GLUBED (test code = GLUBED) 141 mg/dL 74-106 H Performed by certified drill press operator for metal at [facility] [id number] 20:59:00* Test Item Value Reference Range Interpretation Comments GLUBED (test code = GLUBED) 100 mg/dL 74-106 N Performed by certified drill press operator for metal at [facility] [id number] 17:20:00* Test Item Value Reference Range Interpretation Comments GLUBED (test code = GLUBED) 152 mg/dL 74-106 H Performed by certified drill press operator for metal at [facility] [id number] 16:08:00* Test Item Value Reference Range Interpretation Comments GLUBED (test code = GLUBED) 223 mg/dL 74-106 H Performed by certified drill press operator for metal at [facility] [id number] 12:35:00* Test Item Value Reference Range Interpretation Comments GLUBED (test code = GLUBED) 262 mg/dL 74-106 H Performed by certified drill press operator for metal at [facility] [id number] 08:13:00* Test Item Value Reference Range Interpretation Comments GLUBED (test code = GLUBED) 86 mg/dL 74-106 N Performed by certified drill press operator for metal at [facility] [id number] 23:34:00* Test Item Value Reference Range Interpretation Comments GLUBED (test code = GLUBED) 294 mg/dL 74-106 H Performed by certified drill press operator for metal at [facility] [id number] 20:47:00* Test Item Value Reference Range Interpretation Comments GLUBED (test code = GLUBED) 262 mg/dL 74-106 H Performed by certified drill press operator for metal at [facility] [id number] 16:20:00* Test Item Value Reference Range Interpretation Comments GLUBED (test code = GLUBED) 62 mg/dL 74-106 L Performed by certified drill press operator for metal at [facility] [id number] 12:23:00* Test Item Value Reference Range Interpretation Comments GLUBED (test code = GLUBED) 203 mg/dL 74-106 H Performed by certified drill press operator for metal at [facility] [id number] 08:24:00* Test Item Value Reference Range Interpretation Comments GLUBED (test code = GLUBED) 316 mg/dL 74-106 H Performed by certified drill press operator for metal at [facility] [id number] 20:06:00* Test Item Value Reference Range Interpretation Comments GLUBED (test code = GLUBED) 416 mg/dL 74-106 H Performed by certified drill press operator for metal at [facility] [id number] 15:45:00* Test Item Value Reference Range Interpretation Comments GLUBED (test code = GLUBED) 298 mg/dL 74-106 H Performed by certified drill press operator for metal [facility] [id number] 12:18:00* Test Item Value Reference Range Interpretation Comments TROPONIN-I (test code = TROPI) <0.015 ng/mL 0-0.045 N COMMENTS TO LINE COOK: COLLECT 3 HOURS AFTER PREVIOUS [id number] 07:57:00* Test Item Value Reference Range Interpretation Comments TROPONIN-I (test code = TROPI) <0.015 ng/mL 0-0.045 N COMMENTS TO LINE COOK: COLLECT 3 HOURS AFTER PREVIOUS SAMPLEB-TYPE NATRIURETIC [id number] 01:27:00* Test Item Value Reference Range Interpretation Comments B-TYPE NATRIURETIC PEPTIDE (test code = BNP) 88.96 pgram/mL 0-100 N BASIC METABOLIC [id number] 00:47:00* Test Item Value Reference Range Interpretation [...] code = CA) 8.8 mg/dL 8.5-10.1 N [id number] 00:47:00* Test Item Value Reference Range Interpretation Comments TROPONIN-I (test code = TROPI) <0.015 ng/mL 0-0.045 N CBC W/O [id number] 00:42:00* Test Item Value Reference Range Interpretation [...] MPV) 10.8 fL 6.7-11.0 N BASIC METABOLIC [id number] 00:36:00* Test Item Value Reference Range Interpretation [...] code = CA) 8.8 mg/dL 8.5-10.1 N [id number] 00:36:00* Test Item Value Reference Range Interpretation Comments TROPONIN-I (test code = TROPI) ng/mL 0-0.045 - XR CHEST 1 [id number] 00:02:00 FAX: Russ Malcolm MD [phone] [place]: B St: REG FAX: Benjamin Francis MD [phone] Name: KALYANI TALAVERA [facility] : 1955 Age/S: 64/F [address] Unit #: [id number] Loc: [place] [address] Phys: Russ Malcolm MD Acct: [id number] Dis Date: Status: REG ER PHONE #: [phone] Exam Date: 12/03/2019 2352 FAX #: [phone] Reason: Shortness of Breath EXAMS: CPT CODE: [id number] XR CHEST 1 V 34040 Exam: AP chest Location: H 12 History: [...] [place] Trnscrd Date/Time/By: 12/04/2019 (0002) : By: Chan Orig Print D/T: S: 12/04/2019 (0005) PAGE 1 Signed Report [id number] 12:24:00* Test Item Value Reference Range Interpretation Comments GLUBED (test code = GLUBED) 151 mg/dL 74-106 H [facility] [id number] 08:12:00* Test Item Value Reference Range Interpretation Comments GLUBED (test code = GLUBED) 169 mg/dL 74-106 H Per[facility] certified drill [facility] BASIC METABOLIC [id number] 06:37:00* Test Item Value Reference Range Interpretation [...] code = CA) 8.9 mg/dL 8.5-10.1 N [id number] 20:42:00* Test Item Value Reference Range Interpretation Comments GLUBED (test code = GLUBED) 223 mg/dL 74-106 H Performed by certified drill press operator for metal at [facility] [id number] 16:09:00* Test Item Value Reference Range Interpretation Comments GLUBED (test code = GLUBED) 205 mg/dL 74-106 H Performed by certified drill press operator for metal at [facility] [id number] 11:35:00* Test Item Value Reference Range Interpretation Comments GLUBED (test code = GLUBED) 338 mg/dL 74-106 H Performed by certified drill press operator for metal at [facility] [id number] 08:04:00* Test Item Value Reference Range Interpretation Comments GLUBED (test code = GLUBED) 240 mg/dL 74-106 H Performed by certified drill press operator for metal at [facility] BASIC METABOLIC [id number] 07:18:00* Test Item Value Reference Range Interpretation [...] CA) 8.6 mg/dL 8.5-10.1 N BASIC METABOLIC [id number] 07:14:00* Test Item Value Reference Range Interpretation [...] CALCIUM (test code = CA) mg/dL 8.5-10.1 [id number] 20:28:00* Test Item Value Reference Range Interpretation Comments GLUBED (test code = GLUBED) 343 mg/dL 74-106 H Performed by certified drill press operator for metal at [facility] [id number] 16:32:00* Test Item Value Reference Range Interpretation Comments GLUBED (test code = GLUBED) 279 mg/dL 74-106 H Performed by certified drill press operator for metal at [facility] [id number] 11:49:00* Test Item Value Reference Range Interpretation Comments GLUBED (test code = GLUBED) 290 mg/dL 74-106 H Performed by certified drill press operator for metal at [facility] URINALYSIS [id number] 10:01:00* Test Item Value Reference Range Interpretation [...] FEW #/HPF NONE A Urine Source? [facility]streamURINALYSIS [id number] 10:00:00* Test Item Value Reference Range Interpretation [...] = BACU) per HPF NONE Urine Source? [id number] 08:37:00* Test Item Value Reference Range Interpretation Comments GLUBED (test code = GLUBED) 260 mg/dL 74-106 H Performed by certified drill press operator for metal at [facility] [id number] 05:57:00* Test Item Value Reference Range Interpretation Comments GLUBED (test code = GLUBED) 253 mg/dL 74-106 H Performed by certified drill press operator for metal at [facility] BASIC METABOLIC [id number] 05:52:00* Test Item Value Reference Range Interpretation [...] CA) 8.8 mg/dL 8.5-10.1 N BASIC METABOLIC [id number] 05:49:00* Test Item Value Reference Range Interpretation [...] CALCIUM (test code = CA) mg/dL 8.5-10.1 [id number] 23:00:00* Test Item Value Reference Range Interpretation Comments GLUBED (test code = GLUBED) 108 mg/dL 74-106 H Performed by certified drill press operator for metal at [facility] [id number] 22:22:00* Test Item Value Reference Range Interpretation Comments GLUBED (test code = GLUBED) 111 mg/dL 74-106 H Performed by certified drill press operator for metal at [facility] URINALYSIS [id number] 20:09:00* Test Item Value Reference Range Interpretation [...] = BACU) FEW #/HPF NONE Urine Source? [id number] 16:18:00* Test Item Value Reference Range Interpretation Comments GLUBED (test code = GLUBED) 196 mg/dL 74-106 H Performed by certified drill press operator for metal at [facility] [id number] 12:03:00* Test Item Value Reference Range Interpretation Comments GLUBED (test code = GLUBED) 190 mg/dL 74-106 H Performed by certified drill press operator for metal at [facility] [id number] 08:22:00* Test Item Value Reference Range Interpretation Comments GLUBED (test code = GLUBED) 264 mg/dL 74-106 H Per[facility] certified drill press [facility] BASIC METABOLIC [id number] 07:56:00* Test Item Value Reference Range Interpretation [...] CA) 8.6 mg/dL 8.5-10.1 N BASIC METABOLIC [id number] 05:39:00* Test Item Value Reference Range Interpretation [...] code = CA) mg/dL 8.5-10.1 CBC W/AUTO [id number] 05:19:00* Test Item Value Reference Range Interpretation [...] = MDIFF) NO, ONLY SCAN NEEDED DIFFERENTIAL [id number] 05:19:00* Test Item Value Reference Range Interpretation Comments STAIN ACCEPTABILITY (test code = STN ACCEPTABLE) STAIN ACCEPTABLE ANISOCYTOSIS (test code = ANISO) 2+ MICROCYTOSIS (test code = MICR) 2+ MORPHOLOGY COMMENT (test code = MOC) TEST NOT PERFORMED PLATELET ESTIMATE (test code = PLTEST) DECREASED PLATELET MORPHOLOGY (test code = PLTMORPH) NORMAL CBC W/AUTO [id number] 05:06:00* Test Item Value Reference Range Interpretation [...] = MDIFF) NO, ONLY SCAN NEEDED DIFFERENTIAL [id number] 05:06:00* Test Item Value Reference Range Interpretation Comments STAIN ACCEPTABILITY (test code = STN ACCEPTABLE) MORPHOLOGY COMMENT (test code = MOC) PLATELET ESTIMATE (test code = PLTEST) PLATELET MORPHOLOGY (test code = PLTMORPH) CBC W/AUTO [id number] 05:00:00* Test Item Value Reference Range Interpretation [...] = MDIFF) NO, ONLY SCAN NEEDED DIFFERENTIAL [id number] 05:00:00* Test Item Value Reference Range Interpretation Comments STAIN ACCEPTABILITY (test code = STN ACCEPTABLE) CABOT RINGS (test code = CAB) MORPHOLOGY COMMENT (test code = MOC) PLATELET ESTIMATE (test code = PLTEST) PLATELET MORPHOLOGY (test code = PLTMORPH) CBC W/AUTO [id number] 05:00:00* Test Item Value Reference Range Interpretation [...] = MDIFF) NO, ONLY SCAN NEEDED DIFFERENTIAL [id number] 05:00:00* Test Item Value Reference Range Interpretation Comments STAIN ACCEPTABILITY (test code = STN ACCEPTABLE) MORPHOLOGY COMMENT (test code = MOC) PLATELET ESTIMATE (test code = PLTEST) PLATELET MORPHOLOGY (test code = PLTMORPH) CBC W/AUTO [id number] 05:00:00* Test Item Value Reference Range Interpretation [...] = MDIFF) NO, ONLY SCAN NEEDED DIFFERENTIAL [id number] 05:00:00* Test Item Value Reference Range Interpretation Comments STAIN ACCEPTABILITY (test code = STN ACCEPTABLE) CABOT RINGS (test code = CAB) MORPHOLOGY COMMENT (test code = MOC) PLATELET ESTIMATE (test code = PLTEST) PLATELET MORPHOLOGY (test code = PLTMORPH) [id number] 20:25:00* Test Item Value Reference Range Interpretation Comments GLUBED (test code = GLUBED) 146 mg/dL 74-106 H Performed by certified drill press operator for metal at [facility] [id number] 15:10:00* Test Item Value Reference Range Interpretation Comments GLUBED (test code = GLUBED) 266 mg/dL 74-106 H Performed by certified drill press operator for metal at [facility] [id number] 11:49:00* Test Item Value Reference Range Interpretation Comments GLUBED (test code = GLUBED) 297 mg/dL 74-106 H Performed by certified drill press operator for metal at [facility] [id number] 07:56:00* Test Item Value Reference Range Interpretation Comments GLUBED (test code = GLUBED) 241 mg/dL 74-106 H Performed by certified drill press operator for metal at [facility] [id number] 20:49:00* Test Item Value Reference Range Interpretation Comments GLUBED (test code = GLUBED) 277 mg/dL 74-106 H Per[facility] certified drill press [facility] [id number] 16:24:00* Test Item Value Reference Range Interpretation Comments GLUBED (test code = GLUBED) 114 mg/dL 74-106 H Per[facility] by certified drill press operator [facility] [id number] 12:12:00* Test Item Value Reference Range Interpretation Comments GLUBED (test code = GLUBED) 229 mg/dL 74-106 H Performed by certified drill press operator [facility] [id number] 08:05:00* Test Item Value Reference Range Interpretation Comments GLUBED (test code = GLUBED) 359 mg/dL 74-106 H Per[facility] by certified drill press operator [facility] CBC W/AUTO [id number] 05:51:00* Test Item Value Reference Range Interpretation [...] = MDIFF) NO, ONLY SCAN NEEDED DIFFERENTIAL [id number] 05:51:00* Test Item Value Reference Range Interpretation [...] (test code = PLTMORPH) NORMAL COMPREHENSIVE METABOLIC [id number] 05:05:00* Test Item Value Reference Range Interpretation [...] due to change in reagent. COMPREHENSIVE METABOLIC [id number] 04:51:00* Test Item Value Reference Range Interpretation [...] code = ALKP) IUnit/L 45-117 CBC W/AUTO [id number] 04:41:00* Test Item Value Reference Range Interpretation [...] = MDIFF) NO, ONLY SCAN NEEDED DIFFERENTIAL [id number] 04:41:00* Test Item Value Reference Range Interpretation Comments STAIN ACCEPTABILITY (test code = STN ACCEPTABLE) CABOT RINGS (test code = CAB) MORPHOLOGY COMMENT (test code = MOC) PLATELET ESTIMATE (test code = PLTEST) PLATELET MORPHOLOGY (test code = PLTMORPH) CBC W/AUTO [id number] 04:41:00* Test Item Value Reference Range Interpretation [...] = MDIFF) NO, ONLY SCAN NEEDED DIFFERENTIAL [id number] 04:41:00* Test Item Value Reference Range Interpretation Comments STAIN ACCEPTABILITY (test code = STN ACCEPTABLE) CABOT RINGS (test code = CAB) MORPHOLOGY COMMENT (test code = MOC) PLATELET ESTIMATE (test code = PLTEST) PLATELET MORPHOLOGY (test code = PLTMORPH) CBC W/AUTO [id number] 04:41:00* Test Item Value Reference Range Interpretation [...] = MDIFF) NO, ONLY SCAN NEEDED DIFFERENTIAL [id number] 04:41:00* Test Item Value Reference Range Interpretation Comments STAIN ACCEPTABILITY (test code = STN ACCEPTABLE) MORPHOLOGY COMMENT (test code = MOC) PLATELET ESTIMATE (test code = PLTEST) PLATELET MORPHOLOGY (test code = PLTMORPH) CBC W/AUTO [id number] 04:41:00* Test Item Value Reference Range Interpretation [...] = MDIFF) NO, ONLY SCAN NEEDED DIFFERENTIAL [id number] 04:41:00* Test Item Value Reference Range Interpretation Comments STAIN ACCEPTABILITY (test code = STN ACCEPTABLE) CABOT RINGS (test code = CAB) MORPHOLOGY COMMENT (test code = MOC) PLATELET ESTIMATE (test code = PLTEST) PLATELET MORPHOLOGY (test code = PLTMORPH) [id number] 20:46:00* Test Item Value Reference Range Interpretation Comments GLUBED (test code = GLUBED) 242 mg/dL 74-106 H Performed by certified drill press operator for metal at [facility] [id number] 16:35:00* Test Item Value Reference Range Interpretation Comments GLUBED (test code = GLUBED) 345 mg/dL 74-106 H Per[facility] certified drill press [facility] BASIC METABOLIC [id number] 09:05:00* Test Item Value Reference Range Interpretation [...] CA) 8.7 mg/dL 8.5-10.1 N BASIC METABOLIC [id number] 09:00:00* Test Item Value Reference Range Interpretation [...] CALCIUM (test code = CA) mg/dL 8.5-10.1 [id number] 08:20:00* Test Item Value Reference Range Interpretation Comments GLUBED (test code = GLUBED) 349 mg/dL 74-106 H Per[facility] certified drill press [facility] CBC W/AUTO [id number] 06:48:00* Test Item Value Reference Range Interpretation [...] = MDIFF) NO, ONLY SCAN NEEDED DIFFERENTIAL [id number] 06:48:00* Test Item Value Reference Range Interpretation Comments STAIN ACCEPTABILITY (test code = STN ACCEPTABLE) STAIN ACCEPTABLE POLYCHROMASIA (test code = POLC) 2+ HYPOCHROMIA (test code = HYPO) 1+ ANISOCYTOSIS (test code = ANISO) 2+ MICROCYTOSIS (test code = MICR) 2+ PLATELET ESTIMATE (test code = PLTEST) DECREASED PLATELET MORPHOLOGY (test code = PLTMORPH) NORMAL COMPREHENSIVE METABOLIC [id number] 05:21:00* Test Item Value Reference Range Interpretation [...] due to change in reagent. COMPREHENSIVE METABOLIC [id number] 05:14:00* Test Item Value Reference Range Interpretation [...] code = ALKP) IUnit/L 45-117 CBC W/AUTO [id number] 05:08:00* Test Item Value Reference Range Interpretation [...] = MDIFF) NO, ONLY SCAN NEEDED DIFFERENTIAL [id number] 05:08:00* Test Item Value Reference Range Interpretation Comments STAIN ACCEPTABILITY (test code = STN ACCEPTABLE) CABOT RINGS (test code = CAB) MORPHOLOGY COMMENT (test code = MOC) PLATELET ESTIMATE (test code = PLTEST) PLATELET MORPHOLOGY (test code = PLTMORPH) CBC W/AUTO [id number] 05:08:00* Test Item Value Reference Range Interpretation [...] = MDIFF) NO, ONLY SCAN NEEDED DIFFERENTIAL [id number] 05:08:00* Test Item Value Reference Range Interpretation Comments STAIN ACCEPTABILITY (test code = STN ACCEPTABLE) CABOT RINGS (test code = CAB) MORPHOLOGY COMMENT (test code = MOC) PLATELET ESTIMATE (test code = PLTEST) PLATELET MORPHOLOGY (test code = PLTMORPH) CBC W/AUTO [id number] 05:08:00* Test Item Value Reference Range Interpretation [...] = MDIFF) NO, ONLY SCAN NEEDED DIFFERENTIAL [id number] 05:08:00* Test Item Value Reference Range Interpretation Comments STAIN ACCEPTABILITY (test code = STN ACCEPTABLE) MORPHOLOGY COMMENT (test code = MOC) PLATELET ESTIMATE (test code = PLTEST) PLATELET MORPHOLOGY (test code = PLTMORPH) CBC W/AUTO [id number] 05:08:00* Test Item Value Reference Range Interpretation [...] = MDIFF) NO, ONLY SCAN NEEDED DIFFERENTIAL [id number] 05:08:00* Test Item Value Reference Range Interpretation Comments STAIN ACCEPTABILITY (test code = STN ACCEPTABLE) CABOT RINGS (test code = CAB) MORPHOLOGY COMMENT (test code = MOC) PLATELET ESTIMATE (test code = PLTEST) PLATELET MORPHOLOGY (test code = PLTMORPH) [id number] 20:40:00* Test Item Value Reference Range Interpretation Comments GLUBED (test code = GLUBED) 160 mg/dL 74-106 H Performed by certified drill press operator for metal at [facility] Coronavirus 2019 nCoV [id number] 18:50:00* Test Item Value Reference Range Interpretation Comments Coronavirus 2019 nCoV Bedside (test code = HUXPC44MCEHG) Negative [id number] 16:03:00* Test Item Value Reference Range Interpretation Comments GLUBED (test code = GLUBED) 310 mg/dL 74-106 H Per[facility] certified drill press operator [facility] [id number] 11:57:00* Test Item Value Reference Range Interpretation Comments GLUBED (test code = GLUBED) 416 mg/dL 74-106 H Performed by certified drill press operator [facility] [id number] 08:07:00* Test Item Value Reference Range Interpretation Comments GLUBED (test code = GLUBED) 356 mg/dL 74-106 H Performed by certified drill press operator [facility] BASIC METABOLIC [id number] 04:53:00* Test Item Value Reference Range Interpretation [...] code = CA) 8.5 mg/dL 8.5-10.1 N [id number] 04:53:00* Test Item Value Reference Range Interpretation Comments MAGNESIUM (test code = MAG) 1.9 mg/dL 1.8-2.4 N [id number] 23:55:00* Test Item Value Reference Range Interpretation Comments GLUBED (test code = GLUBED) 391 mg/dL 74-106 H Performed by certified drill press operator for metal at [facility] [id number] 20:25:00* Test Item Value Reference Range Interpretation Comments GLUBED (test code = GLUBED) 452 mg/dL 74-106 H Per[facility] certified drill press operator [facility] [id number] 20:15:00* Test Item Value Reference Range Interpretation Comments TROPONIN-I (test code = TROPI) <0.015 ng/mL 0-0.045 N COMMENTS TO LINE COOK: COLLECT 3 HOURS AFTER PREVIOUS [id number] 17:14:00* Test Item Value Reference Range Interpretation Comments TROPONIN-I (test code = TROPI) <0.015 ng/mL 0-0.045 N COMMENTS TO LINE COOK: COLLECT 3 HOURS AFTER PREVIOUS [id number] 15:52:00* Test Item Value Reference Range Interpretation Comments GLUBED (test code = GLUBED) 90 mg/dL 74-106 N Performed by certified drill press operator for metal at [facility] B-TYPE NATRIURETIC [id number] 10:43:00* Test Item Value Reference Range Interpretation Comments B-TYPE NATRIURETIC PEPTIDE (test code = BNP) 120.97 pgram/mL 0-100 H BASIC METABOLIC [id number] 10:37:00* Test Item Value Reference Range Interpretation [...] code = CA) 8.8 mg/dL 8.5-10.1 N [id number] 10:37:00* Test Item Value Reference Range Interpretation Comments TROPONIN-I (test code = TROPI) <0.015 ng/mL 0-0.045 N PROTHROMBIN [id number] 10:25:00* Test Item Value Reference Range Interpretation [...] (2.5-3.5) IS PATIENT ON ANTICOAGULANTS? NTHROMBOPLASTIN TIME [id number] 10:25:00* Test Item Value Reference Range Interpretation Comments THROMBOPLASTIN TIME PARTIAL (test code = PTT) 22.9 seconds 23.0-37. 0 L IS PATIENT ON ANTICOAGULANTS? NBASIC METABOLIC [id number] 10:22:00* Test Item Value Reference Range Interpretation [...] CALCIUM (test code = CA) mg/dL 8.5-10.1 [id number] 10:22:00* Test Item Value Reference Range Interpretation Comments TROPONIN-I (test code = TROPI) ng/mL 0-0.045 CBC W/O [id number] 10:15:00* Test Item Value Reference Range Interpretation [...] fL 6.7-11.0 N - XR CHEST 1 [id number] 10:04:00 FAX: Hardeep Douglas [phone] [place]: St: [facility] FAX: Benjamin Francis MD [phone] Name: KALYANI TALAVERA [facility] : 1955 Age/S: 64/F [address] Unit #: [id number] Loc: [place] [address] Phys: Hardeep Ann MD Acct: [id number] Dis Date: Status: REG ER PHONE #: [phone] Exam Date: 11/20/2019928 FAX #: [phone] Reason: Shortness of Breath EXAMS: CPT CODE: [id number] XR CHEST 1 V 32103 REASON FOR EXAM: Shortness of Breath Exam Order Date: 11/20/2019 9:23 AM Ordering MSamantha: Hardeep Ann MD PROCEDURE: - XR CHEST [...] chronic elevation of the right hemidiaphragm. Location: [facility] at 1004 Reported and signed by: Dago Goodson MD CC: Hardeep Ann MD; Benjamin Masters Technologist: SUSAN HAMMONDS JR Trnscrd Date/Time/By: 0 (1004) : By: [email or web address] Orig Print D/T: S: 11/20/2019 (1007) PAGE 1 Signed Report BASIC METABOLIC [id number] 15:36:00* Test Item Value Reference Range Interpretation [...] CA) 8.5 mg/dL 8.5-10.1 N BASIC METABOLIC [id number] 15:32:00* Test Item Value Reference Range Interpretation [...] CALCIUM (test code = CA) mg/dL 8.5-10.1 [id number] 11:56:00* Test Item Value Reference Range Interpretation Comments GLUBED (test code = GLUBED) 268 mg/dL 74-106 H Performed by certified drill press operator for metal at [facility] [id number] 08:34:00* Test Item Value Reference Range Interpretation Comments GLUBED (test code = GLUBED) 213 mg/dL 74-106 H Performed by certified drill press operator for metal at [facility] COMPREHENSIVE METABOLIC [id number] 06:54:00* Test Item Value Reference Range Interpretation [...] due to change in reagent. COMPREHENSIVE METABOLIC [id number] 06:39:00* Test Item Value Reference Range Interpretation [...] TOTAL (test code = ALKP) IUnit/L 45-117 [id number] 19:31:00* Test Item Value Reference Range Interpretation Comments GLUBED (test code = GLUBED) 307 mg/dL 74-106 H Performed by certified drill press operator for metal at [facility] BASIC METABOLIC [id number] 16:35:00* Test Item Value Reference Range Interpretation [...] CA) 8.9 mg/dL 8.5-10.1 N BASIC METABOLIC [id number] 16:30:00* Test Item Value Reference Range Interpretation [...] CALCIUM (test code = CA) mg/dL 8.5-10.1 [id number] 15:31:00* Test Item Value Reference Range Interpretation Comments GLUBED (test code = GLUBED) 155 mg/dL 74-106 H Performed by certified drill press operator for metal at [facility] [id number] 11:44:00* Test Item Value Reference Range Interpretation Comments GLUBED (test code = GLUBED) 180 mg/dL 74-106 H Performed by certified drill press operator for metal at [facility] [id number] 08:05:00* Test Item Value Reference Range Interpretation Comments GLUBED (test code = GLUBED) 236 mg/dL 74-106 H Performed by certified drill press operator for metal at [facility] COMPREHENSIVE METABOLIC [id number] 04:48:00* Test Item Value Reference Range Interpretation [...] due to change in reagent. COMPREHENSIVE METABOLIC [id number] 04:35:00* Test Item Value Reference Range Interpretation [...] TOTAL (test code = ALKP) IUnit/L 45-117 [id number] 20:09:00* Test Item Value Reference Range Interpretation Comments GLUBED (test code = GLUBED) 126 mg/dL 74-106 H Performed by certified drill press operator for metal at [facility] [id number] 15:38:00* Test Item Value Reference Range Interpretation Comments GLUBED (test code = GLUBED) 241 mg/dL 74-106 H Performed by certified drill press operator for metal at [facility] [id number] 11:39:00* Test Item Value Reference Range Interpretation Comments GLUBED (test code = GLUBED) 406 mg/dL 74-106 H Performed by certified drill press operator for metal at [facility] [id number] 07:56:00* Test Item Value Reference Range Interpretation Comments GLUBED (test code = GLUBED) 318 mg/dL 74-106 H Performed by certified drill press operator for metal at [facility] COMPREHENSIVE METABOLIC [id number] 04:33:00* Test Item Value Reference Range Interpretation [...] due to change in reagent. COMPREHENSIVE METABOLIC [id number] 04:24:00* Test Item Value Reference Range Interpretation [...] TOTAL (test code = ALKP) IUnit/L 45-117 [id number] 22:02:00* Test Item Value Reference Range Interpretation Comments GLUBED (test code = GLUBED) 108 mg/dL 74-106 H Performed by certified drill press operator for metal at [facility] [id number] 19:58:00* Test Item Value Reference Range Interpretation Comments GLUBED (test code = GLUBED) 117 mg/dL 74-106 H Performed by certified drill press operator for metal at [facility] [id number] 11:46:00* Test Item Value Reference Range Interpretation Comments GLUBED (test code = GLUBED) 277 mg/dL 74-106 H Performed by certified drill press operator for metal at [facility] [id number] 11:46:00* Test Item Value Reference Range Interpretation Comments GLUBED (test code = GLUBED) 286 mg/dL 74-106 H Performed by certified drill press operator for metal at [facility] [id number] 04:37:00* Test Item Value Reference Range Interpretation Comments FERRITIN (test code = DESI) 14 ng/mL 8-388 N FE W/TOTAL IRON BINDING CAP.2019-10-21 04:28:00* Test Item Value Reference Range Interpretation Comments SERUM IRON (test code = IRON) 65 ug/dL 50-175 N TOTAL IRON BINDING CAPACITY (test code = TIBC) 532 mcg/dL 250-450 H IRON SATURATION (test code = FESAT) 12.22 % 13-45 L [id number] 03:52:00* Test Item Value Reference Range Interpretation Comments GLUBED (test code = GLUBED) 287 mg/dL 74-106 H Per[facility] by certified [facility] [id number] 20:27:00* Test Item Value Reference Range Interpretation Comments GLUBED (test code = GLUBED) 132 mg/dL 74-106 H Performed by certified drill press operator [facility] metal [facility] [id number] 17:34:00* Test Item Value Reference Range Interpretation Comments GLUBED (test code = GLUBED) 167 mg/dL 74-106 H Performed by certified drill press operator for metal at [facility] [id number] 12:06:00* Test Item Value Reference Range Interpretation Comments GLUBED (test code = GLUBED) 271 mg/dL 74-106 H Performed by certified drill press operator for metal at [facility] - XR CHEST 1 [id number] 08:35:00 FAX: Rigo Mccormick MD [phone] [place]: St: ADM FAX: Benjamin Francis MD [phone] Name: KALYANI TALAVERA [facility] : 1955 Age/S: 64/F [address] [facility] Unit #: [id number] Loc: V.4006 [place] [address] Phys: Rigo Alexander MD Acct: [id number] Dis Date: Status: ADM IN PHONE #: [phone] Exam Date: 10/20/2019829 FAX #: [phone] Reason: chf EXAMS: CPT CODE: [id number] XR CHEST 1 V 40383 CLINICAL HISTORY: chf TECHNIQUE: AP chest x-ray COMPARISON: 10/18/19 IMPRESSION: No significant interval change. Low lung volumes with bibasilar subsegmental atelectasis. No airspace consolidation or pleural effusion. Elevated right hemidiaphragm. Cardiomegaly. Mediastinal silhouette is unremarkable. LOCATION: Dave ctronically Signed by Kary Camacho D.O. on 10/20/2019 at 0835 Reported and signed by: Kary Camacho D.O. CC: Rigo Alexander MDBenjamin Singh Technologist: TAWANNA HURTADO RT(R) Trnscrd Date/Time/By: 10/20/2019 (0835) : By: aniyah [email or web address] Orig Print D/T: S: 10/20/2019 (0838) P AGE 2 Signed Report GLUBED 2019-10-20 08:30:00* Test Item Value Reference Range Interpretation Comments GLUBED (test code = GLUBED) 234 mg/dL 74-106 H Performed by certified drill press operator for metal at [facility] CBC W/AUTO [id number] 05:46:00* Test Item Value Reference Range Interpretation [...] = MDIFF) NO, ONLY SCAN NEEDED DIFFERENTIAL [id number] 05:46:00* Test Item Value Reference Range Interpretation [...] (test code = PLTMORPH) NORMAL BASIC METABOLIC [id number] 05:36:00* Test Item Value Reference Range Interpretation [...] CA) 9.4 mg/dL 8.5-10.1 N BASIC METABOLIC [id number] 05:30:00* Test Item Value Reference Range Interpretation [...] code = CA) mg/dL 8.5-10.1 CBC W/AUTO [id number] 05:11:00* Test Item Value Reference Range Interpretation [...] = MDIFF) NO, ONLY SCAN NEEDED DIFFERENTIAL [id number] 05:11:00* Test Item Value Reference Range Interpretation Comments STAIN ACCEPTABILITY (test code = STN ACCEPTABLE) CABOT RINGS (test code = CAB) MORPHOLOGY COMMENT (test code = MOC) PLATELET ESTIMATE (test code = PLTEST) PLATELET MORPHOLOGY (test code = PLTMORPH) CBC W/AUTO [id number] 05:11:00* Test Item Value Reference Range Interpretation [...] = MDIFF) NO, ONLY SCAN NEEDED DIFFERENTIAL [id number] 05:11:00* Test Item Value Reference Range Interpretation Comments STAIN ACCEPTABILITY (test code = STN ACCEPTABLE) CABOT RINGS (test code = CAB) MORPHOLOGY COMMENT (test code = MOC) PLATELET ESTIMATE (test code = PLTEST) PLATELET MORPHOLOGY (test code = PLTMORPH) CBC W/AUTO [id number] 05:11:00* Test Item Value Reference Range Interpretation [...] = MDIFF) NO, ONLY SCAN NEEDED DIFFERENTIAL [id number] 05:11:00* Test Item Value Reference Range Interpretation Comments STAIN ACCEPTABILITY (test code = STN ACCEPTABLE) MORPHOLOGY COMMENT (test code = MOC) PLATELET ESTIMATE (test code = PLTEST) PLATELET MORPHOLOGY (test code = PLTMORPH) CBC W/AUTO [id number] 05:11:00* Test Item Value Reference Range Interpretation [...] = MDIFF) NO, ONLY SCAN NEEDED DIFFERENTIAL [id number] 05:11:00* Test Item Value Reference Range Interpretation Comments STAIN ACCEPTABILITY (test code = STN ACCEPTABLE) CABOT RINGS (test code = CAB) MORPHOLOGY COMMENT (test code = MOC) PLATELET ESTIMATE (test code = PLTEST) PLATELET MORPHOLOGY (test code = PLTMORPH) [id number] 19:55:00* Test Item Value Reference Range Interpretation Comments GLUBED (test code = GLUBED) 245 mg/dL 74-106 H Performed by certified drill press operator for metal at [facility] [id number] 17:25:00* Test Item Value Reference Range Interpretation Comments GLUBED (test code = GLUBED) 316 mg/dL 74-106 H Performed by certified drill press operator for metal at [facility] [id number] 12:03:00* Test Item Value Reference Range Interpretation Comments GLUBED (test code = GLUBED) 266 mg/dL 74-106 H Performed by certified drill press operator for metal at [facility] [id number] 11:55:00* Test Item Value Reference Range Interpretation Comments GLUBED (test code = GLUBED) 300 mg/dL 74-106 H Performed by certified drill press operator for metal at [facility] COMPREHENSIVE METABOLIC [id number] 04:36:00* Test Item Value Reference Range Interpretation [...] due to change in reagent. COMPREHENSIVE METABOLIC [id number] 04:25:00* Test Item Value Reference Range Interpretation [...] TOTAL (test code = ALKP) IUnit/L 45-117 [id number] 20:30:00* Test Item Value Reference Range Interpretation Comments GLUBED (test code = GLUBED) 202 mg/dL 74-106 H Performed by certified drill press operator for metal [facility] [id number] 18:41:00* Test Item Value Reference Range Interpretation Comments GLUBED (test code = GLUBED) 229 mg/dL 74-106 H Performed by certified drill press operator for metal at [facility] [id number] 15:56:00* Test Item Value Reference Range Interpretation Comments GLUBED (test code = GLUBED) 271 mg/dL 74-106 H Performed by certified drill press operator for metal at [facility] [id number] 15:00:00* Test Item Value Reference Range Interpretation Comments GLYCOSYLATED HEMOGLOBIN (HA1C) (test code = GLYHGB) 9.6 % HbA1 SUGGESTED DIAGNOSIS: HbA1C (%) Diabetic >6.4Prediabetes 5.7 - 6.4Normal <5.7 ESTIMATED AVERAGE GLUCOSE (test code = EAG) 229 MG/DL [id number] 11:26:00* Test Item Value Reference Range Interpretation Comments GLUBED (test code = GLUBED) 372 mg/dL 74-106 H Performed by certified drill press operator for metal at [facility] - XR CHEST 1 [id number] 08:31:00 FAX: Rigo Mccormick MD [phone] [place]: [facility]: [facility] FAX: Benjamin Francis MD [phone] Name: KALYANI TALAVERA [facility] : 1955 Age/S: 64/F [address] Unit #: [id number] Loc: V.3072 [place] [address] Phys: Rigo Alexander MD Acct: [id number] Dis Date: Status: ADM IN PHONE #: [phone] Exam Date: 10/18/2019 08 FAX #: [phone] Reason: chf EXAMS: CPT CODE: [id number] XR CHEST 1 V 40268 REASON FOR EXAM: chf Exam Order Date: [...] limits. IMPRESSION: No acute cardiopulmonary process. Location: [facility] Electronic ally Signed by Dago Goodson MD on 10/18/2019 at 0831 Repo rted and signed by: Dago Goodson MD CC: Rigo Alexander MD; Benjamin Masters Technologist: SUSAN HAMMONDS JR Trnscrd Date/Time/By: 10/18/2019 (08) : By: [email or web address] Orig Print D/T: S: 10/18/2019 (0834) PAGE 1 Signed Report [id number] 07:40:00 * Test Item Value Reference Range Interpretation Comments GLUBED (test code = GLUBED) 391 mg/dL 74-106 H Performed by certified drill press operator for metal at [facility] COMPREHENSIVE METABOLIC [id number] 04:54:00* Test Item Value Reference Range Interpretation [...] reference range due to change in reagent. [id number] 04:54:00* Test Item Value Reference Range Interpretation Comments MAGNESIUM (test code = MAG) 1.8 mg/dL 1.8-2.4 N COMPREHENSIVE METABOLIC [id number] 04:45:00* Test Item Value Reference Range Interpretation [...] TOTAL (test code = ALKP) IUnit/L 45-117 [id number] 04:45:00* Test Item Value Reference Range Interpretation Comments MAGNESIUM (test code = MAG) mg/dL 1.8-2.4 CBC W/AUTO [id number] 04:28:00* Test Item Value Reference Range Interpretation [...] code = NRBC#) 0.00 K/mm3 0.0-0.1 N [id number] 23:49:00* Test Item Value Reference Range Interpretation Comments TROPONIN-I (test code = TROPI) 0.024 ng/mL 0-0.045 N COMMENTS TO LINE COOK: COLLECT 3 HOURS AFTER PREVIOUS [id number] 20:30:00* Test Item Value Reference Range Interpretation Comments GLUBED (test code = GLUBED) 288 mg/dL 74-106 H Performed by certified drill press operator for metal at [facility] [id number] 19:35:00* Test Item Value Reference Range Interpretation Comments TROPONIN-I (test code = TROPI) 0.027 ng/mL 0-0.045 N COMMENTS TO LINE COOK: COLLECT 3 HOURS AFTER PREVIOUS SAMPLE- CT CHEST W/O [id number] 18:12:00 Name: KALYANI TALAVERA [facility] : 1955 Age/S: 64 / F [address] [facility]: [id number] Loc: [place] [address] Phys: Pravin Christianson MD Acct: [id number] Dis Date: Status: ADM IN PHONE #: [phone] Exam Date: 10/17/2019 1800 FAX #: [phone] Reason: Dyspnea, Crackles in bases EXAMS: CPT CODE: [id number] CT CHEST W/O CONTRAST 22649 HISTORY: Dyspnea and crackles in the base. [...] CTDI: DLP: Trnscb Date/Time : 10/17/2019 (1811) t.SDR.TH4 PAGE 1 Signed Report [id number] 17:25:00* Test Item Value Reference Range Interpretation Comments MAGNESIUM (test code = MAG) 1.8 mg/dL 1.8-2.4 N [id number] 16:20:00* Test Item Value Reference Range Interpretation Comments GLUBED (test code = GLUBED) 221 mg/dL 74-106 H Performed by certified drill press operator for metal at [facility] B-TYPE NATRIURETIC [id number] 10:56:00* Test Item Value Reference Range Interpretation Comments B-TYPE NATRIURETIC PEPTIDE (test code = BNP) 58.67 pgram/mL 0-100 N BASIC METABOLIC [id number] 10:25:00* Test Item Value Reference Range Interpretation [...] code = CA) 8.6 mg/dL 8.5-10.1 N [id number] 10:25:00* Test Item Value Reference Range Interpretation Comments TROPONIN-I (test code = TROPI) 0.025 ng/mL 0-0.045 N BASIC METABOLIC [id number] 10:15:00* Test Item Value Reference Range Interpretation [...] CALCIUM (test code = CA) mg/dL 8.5-10.1 [id number] 10:15:00* Test Item Value Reference Range Interpretation Comments TROPONIN-I (test code = TROPI) ng/mL 0-0.045 CBC W/O [id number] 09:54:00* Test Item Value Reference Range Interpretation [...] fL 6.7-11.0 N - XR CHEST 1 [id number] 09:54:00 FAX: Patel Kulkarni MD [place]: B St: PRE FAX: Benjamin Francis MD [phone] Name: KALYANI TALAVERA [facility] : 1955 Age/S: 64/F [address] Unit #: [id number] Loc: [place] [address] Phys: Patel Kulkarni MD Acct: [id number] Dis Date: Status: PRE ER PHONE #: [phone] Exam Date: 10/17/2019 0946 FAX #: [phone] Reason: Shortness of Breath EXAMS: CPT CODE: [id number] XR CHEST 1 V 07150 CLINICAL HISTORY: Shortness of Breath TECHNIQUE: AP [...] Patel Kulkarni MD; Benjamin Masters Technologist: Marci Leyva(Megan) Trnscrd Date/Time/By: 10/17/19 20 (09) : By: [email or web address] Orig Print D/T: S: 10/17/2019 (7276) PAGE 1 Signed Report [id number] 15:30:00* Test Item Value Reference Range Interpretation Comments GLUBED (test code = GLUBED) 138 mg/dL 74-106 H Performed by certified drill press operator for metal at [facility] COMPREHENSIVE METABOLIC [id number] 14:28:00* Test Item Value Reference Range Interpretation [...] due to change in reagent. COMPREHENSIVE METABOLIC [id number] 14:18:00* Test Item Value Reference Range Interpretation [...] code = ALKP) IUnit/L 45-117 CBC W/AUTO [id number] 13:43:00* Test Item Value Reference Range Interpretation [...] NRBC#) 0.02 K/mm3 0.0-0.1 N CBC W/AUTO [id number] 13:37:00* Test Item Value Reference Range Interpretation [...] # (test code = BA#) K/mm3 0.0-0.2 [id number] 12:24:00* Test Item Value Reference Range Interpretation Comments GLUBED (test code = GLUBED) 142 mg/dL 74-106 H Performed by certified drill press operator for metal at [facility] [id number] 07:57:00* Test Item Value Reference Range Interpretation Comments GLUBED (test code = GLUBED) 221 mg/dL 74-106 H Performed by certified drill press operator for metal at [facility] - XR CHEST 1 [id number] 21:23:00 FAX: Alfa Moscoso MD [phone] [place]: St: [facility] FAX: Benjamin Francis MD [phone] Name: KALYANI TALAVERA [facility] : 1955 Age/S: 64/F [address] [facility] Unit #: [id number] Loc: V.[address] [place] [address] Phys: Alfa Cassidy MD Acct: [id number] Dis Date: Status: ADM IN PHONE #: [phone] Exam Date: 09/07/20192048 FAX #: [phone] Reason: ACUTE CHF EXAMS: CPT CODE: [id number] XR CHEST 1 V 97786 CLINICAL HISTORY: ACUTE CHF TECHNIQUE: AP chest x-ray COMPARISON: 09/03/19 IMPRESSION: No significant interval change. Low lung volumes with bibasilar subsegmental atelectasis. No airspace consolidation or pleural effusion. Mild cardiomegaly with pulmonary congestion. Mediastinal silhouette is unre markable. LOCATION: at 2123 Reported and signed by: Kary Camacho D.O. CC: Alfa Osullivan MD; Benjamin Masters Technologist: Freda Guzman T(R); TAWANNA CLEMENTS(R) Trnscrd Date/Time/By: 09/07/2019 (2122) : By: [email or web address] Orig Print D/T: S: 09/07/2019 (2125) PAGE 1 Signed Report [id number] 20:44:00* Test Item Value Reference Range Interpretation Comments GLUBED (test code = GLUBED) 176 mg/dL 74-106 H Performed by certified drill press operator for metal at [facility] CBC W/AUTO [id number] 17:54:00* Test Item Value Reference Range Interpretation [...] = MDIFF) NO, ONLY SCAN NEEDED DIFFERENTIAL [id number] 17:54:00* Test Item Value Reference Range Interpretation Comments STAIN ACCEPTABILITY (test code = STN ACCEPTABLE) STAIN ACCEPTABLE ANISOCYTOSIS (test code = ANISO) 1+ PLATELET ESTIMATE (test code = PLTEST) DECREASED PLATELET MORPHOLOGY (test code = PLTMORPH) NORMAL COMPREHENSIVE METABOLIC [id number] 17:01:00* Test Item Value Reference Range Interpretation [...] reference range due to change in reagent. [id number] 17:00:00* Test Item Value Reference Range Interpretation Comments GLUBED (test code = GLUBED) 270 mg/dL 74-106 H Performed by certified drill press operator for metal at [facility] B-TYPE NATRIURETIC [id number] 17:00:00* Test Item Value Reference Range Interpretation Comments B-TYPE NATRIURETIC PEPTIDE (test code = BNP) 33.15 pgram/mL 0-100 N CBC W/AUTO [id number] 16:55:00* Test Item Value Reference Range Interpretation [...] = MDIFF) NO, ONLY SCAN NEEDED DIFFERENTIAL [id number] 16:55:00* Test Item Value Reference Range Interpretation Comments STAIN ACCEPTABILITY (test code = STN ACCEPTABLE) CABOT RINGS (test code = CAB) MORPHOLOGY COMMENT (test code = MOC) PLATELET ESTIMATE (test code = PLTEST) PLATELET MORPHOLOGY (test code = PLTMORPH) CBC W/AUTO [id number] 16:55:00* Test Item Value Reference Range Interpretation [...] = MDIFF) NO, ONLY SCAN NEEDED DIFFERENTIAL [id number] 16:55:00* Test Item Value Reference Range Interpretation Comments STAIN ACCEPTABILITY (test code = STN ACCEPTABLE) CABOT RINGS (test code = CAB) MORPHOLOGY COMMENT (test code = MOC) PLATELET ESTIMATE (test code = PLTEST) PLATELET MORPHOLOGY (test code = PLTMORPH) CBC W/AUTO [id number] 16:55:00* Test Item Value Reference Range Interpretation [...] = MDIFF) NO, ONLY SCAN NEEDED DIFFERENTIAL [id number] 16:55:00* Test Item Value Reference Range Interpretation Comments STAIN ACCEPTABILITY (test code = STN ACCEPTABLE) MORPHOLOGY COMMENT (test code = MOC) PLATELET ESTIMATE (test code = PLTEST) PLATELET MORPHOLOGY (test code = PLTMORPH) CBC W/AUTO [id number] 16:55:00* Test Item Value Reference Range Interpretation [...] = MDIFF) NO, ONLY SCAN NEEDED DIFFERENTIAL [id number] 16:55:00* Test Item Value Reference Range Interpretation Comments STAIN ACCEPTABILITY (test code = STN ACCEPTABLE) CABOT RINGS (test code = CAB) MORPHOLOGY COMMENT (test code = MOC) PLATELET ESTIMATE (test code = PLTEST) PLATELET MORPHOLOGY (test code = PLTMORPH) CBC W/AUTO [id number] 16:49:00* Test Item Value Reference Range Interpretation [...] code = BA#) K/mm3 0.0-0.2 COMPREHENSIVE METABOLIC [id number] 16:49:00* Test Item Value Reference Range Interpretation [...] TOTAL (test code = ALKP) IUnit/L 45-117 [id number] 12:09:00* Test Item Value Reference Range Interpretation Comments GLUBED (test code = GLUBED) 219 mg/dL 74-106 H Performed by certified drill press operator for metal at [facility] [id number] 08:21:00* Test Item Value Reference Range Interpretation Comments GLUBED (test code = GLUBED) 249 mg/dL 74-106 H Performed by certified drill press operator for metal at [facility] BASIC METABOLIC [id number] 06:22:00* Test Item Value Reference Range Interpretation [...] code = CA) 8.6 mg/dL 8.5-10.1 N [id number] 20:04:00* Test Item Value Reference Range Interpretation Comments GLUBED (test code = GLUBED) 282 mg/dL 74-106 H Performed by certified drill press operator for metal at [facility] [id number] 17:10:00* Test Item Value Reference Range Interpretation Comments GLUBED (test code = GLUBED) 210 mg/dL 74-106 H Performed by certified drill press operator for metal at [facility] [id number] 11:31:00* Test Item Value Reference Range Interpretation Comments GLUBED (test code = GLUBED) 179 mg/dL 74-106 H Performed by certified drill press operator for metal at [facility] BASIC METABOLIC [id number] 09:04:00* Test Item Value Reference Range Interpretation [...] CA) 8.7 mg/dL 8.5-10.1 N BASIC METABOLIC [id number] 08:59:00* Test Item Value Reference Range Interpretation [...] CALCIUM (test code = CA) mg/dL 8.5-10.1 [id number] 08:24:00* Test Item Value Reference Range Interpretation Comments GLUBED (test code = GLUBED) 201 mg/dL 74-106 H Performed by certified drill press operator for metal at [facility] [id number] 21:07:00* Test Item Value Reference Range Interpretation Comments GLUBED (test code = GLUBED) 185 mg/dL 74-106 H Performed by certified drill press operator for metal at [facility] [id number] 20:21:00* Test Item Value Reference Range Interpretation Comments GLUBED (test code = GLUBED) 168 mg/dL 74-106 H Performed by certified drill press operator for metal at [facility] [id number] 17:21:00* Test Item Value Reference Range Interpretation Comments GLUBED (test code = GLUBED) 104 mg/dL 74-106 N Performed by certified drill press operator for metal at [facility] [id number] 11:54:00* Test Item Value Reference Range Interpretation Comments GLUBED (test code = GLUBED) 207 mg/dL 74-106 H Performed by certified drill press operator for metal at [facility] [id number] 10:26:00* Test Item Value Reference Range Interpretation Comments GLUBED (test code = GLUBED) 266 mg/dL 74-106 H Performed by certified drill press operator for metal at [facility] BASIC METABOLIC [id number] 08:10:00* Test Item Value Reference Range Interpretation [...] CA) 8.5 mg/dL 8.5-10.1 N BASIC METABOLIC [id number] 08:01:00* Test Item Value Reference Range Interpretation [...] CALCIUM (test code = CA) mg/dL 8.5-10.1 [id number] 20:13:00* Test Item Value Reference Range Interpretation Comments GLUBED (test code = GLUBED) 280 mg/dL 74-106 H Performed by certified drill press operator for metal at [facility] URINALYSIS [id number] 18:55:00* Test Item Value Reference Range Interpretation [...] #/LPF FEW BY V.LAB.THSPECIMEN COMMENTS: urineUrine Source? [id number] 16:55:00* Test Item Value Reference Range Interpretation Comments GLUBED (test code = GLUBED) 151 mg/dL 74-106 H Performed by certified drill press operator for metal at [facility] [id number] 15:39:00* Test Item Value Reference Range Interpretation Comments GLUBED (test code = GLUBED) 264 mg/dL 74-106 H Performed by certified drill press operator for metal at [facility] CBC W/AUTO [id number] 11:09:00* Test Item Value Reference Range Interpretation [...] = MDIFF) NO, ONLY SCAN NEEDED DIFFERENTIAL [id number] 11:09:00* Test Item Value Reference Range Interpretation Comments STAIN ACCEPTABILITY (test code = STN ACCEPTABLE) STAIN ACCEPTABLE HYPOCHROMIA (test code = HYPO) 1+ ANISOCYTOSIS (test code = ANISO) 1+ PLATELET ESTIMATE (test code = PLTEST) SLIGHTLY DECREASED PLATELET MORPHOLOGY (test code = PLTMORPH) NORMAL CBC W/AUTO [id number] 10:19:00* Test Item Value Reference Range Interpretation [...] = MDIFF) NO, ONLY SCAN NEEDED DIFFERENTIAL [id number] 10:19:00* Test Item Value Reference Range Interpretation Comments STAIN ACCEPTABILITY (test code = STN ACCEPTABLE) MORPHOLOGY COMMENT (test code = MOC) PLATELET ESTIMATE (test code = PLTEST) PLATELET MORPHOLOGY (test code = PLTMORPH) CBC W/AUTO [id number] 10:15:00* Test Item Value Reference Range Interpretation [...] = MDIFF) NO, ONLY SCAN NEEDED DIFFERENTIAL [id number] 10:15:00* Test Item Value Reference Range Interpretation Comments STAIN ACCEPTABILITY (test code = STN ACCEPTABLE) CABOT RINGS (test code = CAB) MORPHOLOGY COMMENT (test code = MOC) PLATELET ESTIMATE (test code = PLTEST) PLATELET MORPHOLOGY (test code = PLTMORPH) CBC W/AUTO [id number] 10:15:00* Test Item Value Reference Range Interpretation [...] = MDIFF) NO, ONLY SCAN NEEDED DIFFERENTIAL [id number] 10:15:00* Test Item Value Reference Range Interpretation Comments STAIN ACCEPTABILITY (test code = STN ACCEPTABLE) MORPHOLOGY COMMENT (test code = MOC) PLATELET ESTIMATE (test code = PLTEST) PLATELET MORPHOLOGY (test code = PLTMORPH) CBC W/AUTO [id number] 10:15:00* Test Item Value Reference Range Interpretation [...] = MDIFF) NO, ONLY SCAN NEEDED DIFFERENTIAL [id number] 10:15:00* Test Item Value Reference Range Interpretation Comments STAIN ACCEPTABILITY (test code = STN ACCEPTABLE) CABOT RINGS (test code = CAB) MORPHOLOGY COMMENT (test code = MOC) PLATELET ESTIMATE (test code = PLTEST) PLATELET MORPHOLOGY (test code = PLTMORPH) CBC W/AUTO [id number] 10:00:00* Test Item Value Reference Range Interpretation [...] # (test code = BA#) K/mm3 0.0-0.2 [id number] 08:44:00* Test Item Value Reference Range Interpretation Comments GLUBED (test code = GLUBED) 305 mg/dL 74-106 H Performed by certified drill press operator for metal at [facility] BASIC METABOLIC [id number] 08:31:00* Test Item Value Reference Range Interpretation [...] code = CA) 8.0 mg/dL 8.5-10.1 L [id number] 20:37:00* Test Item Value Reference Range Interpretation Comments GLUBED (test code = GLUBED) 200 mg/dL 74-106 H Performed by certified drill press operator for metal at [facility] - XR CHEST 1 [id number] 18:15:00 FAX: Benjamin Francis MD [phone] [place]: St: ADM Name: KALYANI CATES [facility] : [birth year] Age/S: 64/F [address] [facility] Unit #: [id number] Loc: [address] [address] Phys: Benjamin Masters MD Acct: [id number] Dis Date: Status: ADM IN PHONE #: [phone] Exam Date: 09/03/2019 1615 FAX #: [phone] Reason: CHF EXAMS: CPT CODE: [id number] XR CHEST 1 V 74902 EXAM: Chest x-ray, one view; INFORMATION: CHF, hypoglycemia; IMPRESSION: 1. Mild cardiomegaly; otherwise, no evidence of active cardiopulmonary disease. 2. No significant change compared with a study from August 28, 2019. Location code: [facility] at 1815 Reported and signed by: Jc Bravo M.D. CC: Benjamin Masters Technologist: WENDIE COMER, RT(R); Jacquie Alcantara RT(R) Trnscrd Date/Time/By: 09/03/2019 (1814) : By: LeanneGRW Orig Print D/T: S: 09/03/2019 (1817) PAGE 1 Signed Report [id number] 17:28:00* Test Item Value Reference Range Interpretation Comments GLUBED (test code = GLUBED) 103 mg/dL 74-106 N Performed by certified drill press operator for metal at [facility] [id number] 12:43:00* Test Item Value Reference Range Interpretation Comments GLUBED (test code = GLUBED) 201 mg/dL 74-106 H Performed by certified drill press operator for metal at [facility] B-TYPE NATRIURETIC [id number] 12:25:00* Test Item Value Reference Range Interpretation Comments B-TYPE NATRIURETIC PEPTIDE (test code = BNP) 20.62 pgram/mL 0-100 N SPECIMEN COMMENTS: add to AM labsBASIC METABOLIC [id number] 09:49:00* Test Item Value Reference Range Interpretation [...] code = CA) 8.3 mg/dL 8.5-10.1 L [id number] 08:23:00* Test Item Value Reference Range Interpretation Comments GLUBED (test code = GLUBED) 242 mg/dL 74-106 H Performed by certified drill press operator for metal at [facility] [id number] 20:51:00* Test Item Value Reference Range Interpretation Comments GLUBED (test code = GLUBED) 155 mg/dL 74-106 H Performed by certified drill press operator for metal at [facility] [id number] 16:25:00* Test Item Value Reference Range Interpretation Comments GLUBED (test code = GLUBED) 245 mg/dL 74-106 H Performed by certified drill press operator for metal at [facility] [id number] 14:55:00* Test Item Value Reference Range Interpretation Comments MAGNESIUM (test code = MAG) 1.8 mg/dL 1.8-2.4 N COMPREHENSIVE METABOLIC [id number] 13:39:00* Test Item Value Reference Range Interpretation [...] due to change in reagent. COMPREHENSIVE METABOLIC [id number] 13:31:00* Test Item Value Reference Range Interpretation [...] code = ALKP) IUnit/L 45-117 CBC W/AUTO [id number] 12:41:00* Test Item Value Reference Range Interpretation [...] NRBC#) 0.00 K/mm3 0.0-0.1 N CBC W/AUTO [id number] 12:32:00* Test Item Value Reference Range Interpretation [...] # (test code = BA#) K/mm3 0.0-0.2 [id number] 11:40:00* Test Item Value Reference Range Interpretation Comments GLUBED (test code = GLUBED) 252 mg/dL 74-106 H Performed by certified drill press operator for metal at [facility] [id number] 08:02:00* Test Item Value Reference Range Interpretation Comments GLUBED (test code = GLUBED) 252 mg/dL 74-106 H Performed by certified drill press operator for metal at [facility] [id number] 20:04:00* Test Item Value Reference Range Interpretation Comments GLUBED (test code = GLUBED) 183 mg/dL 74-106 H Performed by certified drill press operator for metal at [facility] [id number] 18:42:00* Test Item Value Reference Range Interpretation Comments GLUBED (test code = GLUBED) 218 mg/dL 74-106 H Performed by certified drill press operator for metal at [facility] [id number] 12:24:00* Test Item Value Reference Range Interpretation Comments GLUBED (test code = GLUBED) 281 mg/dL 74-106 H Performed by certified drill press operator for metal at [facility] [id number] 08:29:00* Test Item Value Reference Range Interpretation Comments GLUBED (test code = GLUBED) 293 mg/dL 74-106 H Performed by certified drill press operator for metal at [facility] [id number] 20:21:00* Test Item Value Reference Range Interpretation Comments GLUBED (test code = GLUBED) 236 mg/dL 74-106 H Performed by certified drill press operator for metal at [facility] [id number] 17:17:00* Test Item Value Reference Range Interpretation Comments GLUBED (test code = GLUBED) 311 mg/dL 74-106 H Performed by certified drill press operator for metal at [facility] [id number] 12:22:00* Test Item Value Reference Range Interpretation Comments GLUBED (test code = GLUBED) 230 mg/dL 74-106 H Performed by certified drill press operator for metal at [facility] [id number] 08:34:00* Test Item Value Reference Range Interpretation Comments GLUBED (test code = GLUBED) 301 mg/dL 74-106 H Performed by certified drill press operator for metal at [facility] BASIC METABOLIC [id number] 06:15:00* Test Item Value Reference Range Interpretation [...] CA) 8.6 mg/dL 8.5-10.1 N BASIC METABOLIC [id number] 06:12:00* Test Item Value Reference Range Interpretation [...] code = CA) 8.6 mg/dL 8.5-10.1 N [id number] 20:44:00* Test Item Value Reference Range Interpretation Comments GLUBED (test code = GLUBED) 304 mg/dL 74-106 H Performed by certified drill press operator for metal at [facility] [id number] 17:42:00* Test Item Value Reference Range Interpretation Comments MAGNESIUM (test code = MAG) 1.8 mg/dL 1.8-2.4 N [id number] 17:25:00* Test Item Value Reference Range Interpretation Comments GLUBED (test code = GLUBED) 196 mg/dL 74-106 H Performed by certified drill press operator for metal at [facility] [id number] 12:10:00* Test Item Value Reference Range Interpretation Comments GLUBED (test code = GLUBED) 223 mg/dL 74-106 H Performed by certified drill press operator for metal at [facility] BASIC METABOLIC [id number] 07:59:00* Test Item Value Reference Range Interpretation [...] code = CA) 8.6 mg/dL 8.5-10.1 N [id number] 07:59:00* Test Item Value Reference Range Interpretation Comments MAGNESIUM (test code = MAG) 1.8 mg/dL 1.8-2.4 N [id number] 07:54:00* Test Item Value Reference Range Interpretation Comments GLUBED (test code = GLUBED) 232 mg/dL 74-106 H Performed by certified drill press operator for metal at [facility] BASIC METABOLIC [id number] 07:35:00* Test Item Value Reference Range Interpretation [...] CALCIUM (test code = CA) mg/dL 8.5-10.1 [id number] 07:35:00* Test Item Value Reference Range Interpretation Comments MAGNESIUM (test code = MAG) mg/dL 1.8-2.4 [id number] 20:33:00* Test Item Value Reference Range Interpretation Comments GLUBED (test code = GLUBED) 161 mg/dL 74-106 H Performed by certified drill press operator for metal at [facility] [id number] 16:15:00* Test Item Value Reference Range Interpretation Comments GLUBED (test code = GLUBED) 137 mg/dL 74-106 H Performed by certified drill press operator for metal at [facility] [id number] 15:50:00 RUN DATE: 08/29/19 [facility] PAGE 1 RUN TIME: 1550 Specimen Inqui ry RUN USER: INTERFACE PATIENT: KALYANI TALAVERA ACCT #: [id number] LOC: [facility]UR[place] U #: [id number] AGE/SX: 64/F ROOM: [facility] RE08/29/19REG DR: Benjamin Masters MD : 57 BED: A DIS: STATUS: ADM IN TLOC: SPEC #: [id number] RECD: 08/28/19 STATUS: SHREYA BROWN #: [id number] MARILEE: 08/27/19- SUBM DR: Emil Martinez MD ENTERED: 08/28/19 SP TYPE: STOMACH OTHR DR: Faizan Barron i, MD, Kuldip Kumar MD Ojeas, Harry Silvio MDORDERED: GROSS COPIES TO: Emil Martinez MD [address] [place] [address] Faizan Jennings MD [address] [place] [address] Harry Gutierrez MD [address] [facility] [address] [place] [address] Kb Bradford MD [address] [address] PROCEDURES: GROSS (08/29/19- 145) TISSUES: ANTRAL BIOPSY - H-PYLORI CLINICAL HISTORY COLLECTION DATE: 08/27/19 DYSPHAGIA FINAL DIAGNOSIS Antrum, biop sy: REACTIVE GASTROPATHY NO INTESTINAL METAPLASIA SEEN NEGA TIVE FOR HELICOBACTER PYLORI BY GIEMSA STAIN NEGATIVE FOR MALIGNANCY CONTINUED ON NEXT PAGE RUN DATE : 08/29/19 [facility] PAGE 2 RUN TIME: 1550 Specimen Inquiry RUN USER: INTERFACE SPEC #: [id number] PATIENT: KALYANI TALAVERA #V [id number] (Continued) FINAL DIAGNOSIS (Continue d) BRITTNI/corby Simpson [address], [address] MACROSCOPIC The specimen is re ceived in formalin, labeled with the patient's name, and identified as "antrum bx", and consists of two gutierrez biopsies measuring 0.25 cm each. RADHA SS PERFORMED AT [facility] INTERNAL GRINDER S [address] [place] [id number] (p)[phone] MICROS COPIC All of the stains, including any controls performed, stain casandra loyd. MICROSCOPIC PERFORMED AT [facility] [address] [place] [address] (p)[phone] PERFORMING SITE Diagnosis performed at: [facility] [address] [place] [address] Signed SIGNATURE ON FILE Petty Lowe MD 08/29/19 1550 END OF REPORT [id number] 11:43:00* Test Item Value Reference Range Interpretation Comments GLUBED (test code = GLUBED) 318 mg/dL 74-106 H Performed by certified drill press operator for metal at [facility] BASIC METABOLIC [id number] 09:27:00* Test Item Value Reference Range Interpretation [...] CA) 8.5 mg/dL 8.5-10.1 N BASIC METABOLIC [id number] 09:17:00* Test Item Value Reference Range Interpretation [...] CALCIUM (test code = CA) mg/dL 8.5-10.1 [id number] 08:08:00* Test Item Value Reference Range Interpretation Comments GLUBED (test code = GLUBED) 291 mg/dL 74-106 H Performed by certified drill press operator for metal at [facility] [id number] 20:52:00* Test Item Value Reference Range Interpretation Comments GLUBED (test code = GLUBED) 267 mg/dL 74-106 H Performed by certified drill press operator for metal at [facility] [id number] 19:40:00* Test Item Value Reference Range Interpretation Comments TROPONIN-I (test code = TROPI) <0.015 ng/mL 0-0.045 N SPECIMEN COMMENTS: [id number] 19:27:00* Test Item Value Reference Range Interpretation Comments MAGNESIUM (test code = MAG) 1.6 mg/dL 1.8-2.4 L - XR ANKLE 3 + V [id number] 16:26:00 FAX: Benjamin Francis MD [phone] [place]: St: ADM Name: KALYANI CATES [facility] : [birth year] Age/S: 64/F [address] Unit #: [id number] Loc: V.[address] [place] [address] Phys: Benjamin Masters MD Acct: [id number] Dis Date: Status: ADM IN PHONE #: [phone] Exam Date: 08/28/2019 1600 FAX #: [phone] Reason: Left ankle injury EXAMS: CPT CODE: [id number] XR ANKLE 3 + V LT [address]127 REASON FOR EXAM: Left ankle injury EXAM ORDER DATE: 08/28/2019 12:00 AM Ordering: Benjamin Masters MD Attending:Benjamin Masters MD Location:[facility] PROCEDURE: - XR ANKLE 3 + V LT FINDIN GS: 3 views of the left ankle were obtained. The osseous structures are un remarkable in size and shape. The joint spaces are maintained. No evidence of fracture. The syndesmosis is intact. IMPRESSION: Mild soft tissue swelling in the lateral malleolus. at 1629 Reported and signed by: Pelon Moreno M.D. CC: Benjamin Masters Technologist: Jacquie Alcantara RT(R) Trnscrd Date/Time/By: 08/28/2019 (1028) : By: LeanneVTL Orig P rint D/T: S: 08/28/2019 (9099) PAGE 1 Signed Report [id number] 16:25:00* Test Item Value Reference Range Interpretation Comments GLUBED (test code = GLUBED) 241 mg/dL 74-106 H Performed by certified drill press operator for metal at [facility] - XR CHEST 1 [id number] 16:25:00 FAX: Benjamin Francis MD [phone] [place]: St: ADM Name: KALYANI CATES [facility] : [birth year] Age/S: 64/F [address] Unit #: [id number] Loc: V.[address] [place] [address] Phys: Benjamin Masters MD Acct: [id number] Dis Date: Status: ADM IN PHONE #: [phone] Exam Date: 08/28/2019 1600 FAX #: [phone] Reason: CHF EXAMS: CPT CODE: [id number] XR CHEST 1 V 30827 REASON FOR EXAM: CHF EXAM ORDER DATE: 08/28/2019 12:00 AM Ordering: Benjamin Masters MD Attending:Benjamin Masters MD Location:[facility] PRO CEDURE: - XR CHEST 1 V COMPARISON: 08/27/2019 FINDING S: Portable AP frontal view of the chest obtained at 3:59 PM shows clear lungs without evidence of consolidation. There is no evidence of effusion. The heart size is minimally enlarged. Pulmonary vasculatures are minimally congested. IMPRESSION: Interval improvement in the congestive heart failure. at 8088 Reported and signed by: Pelon Moreno M.D. CC: Benjamin Masters Technestrella st: Jacquie Alcantara RT(R) Trnscrd Date/Time/By: 08/28/2019 (9488) : By: LeanneVTL Orig Print D/T: S: 08/28/2019 (0239) PAGE 1 Signed Report [id number] 11:24:00* Test Item Value Reference Range Interpretation Comments GLUBED (test code = GLUBED) 289 mg/dL 74-106 H Performed by certified drill press operator for metal at [facility] [id number] 07:51:00* Test Item Value Reference Range Interpretation Comments GLUBED (test code = GLUBED) 345 mg/dL 74-106 H Performed by certified drill press operator for metal at [facility] BASIC METABOLIC [id number] 06:05:00* Test Item Value Reference Range Interpretation [...] CA) 8.4 mg/dL 8.5-10.1 L CBC W/AUTO [id number] 06:00:00* Test Item Value Reference Range Interpretation [...] = MDIFF) NO, ONLY SCAN NEEDED DIFFERENTIAL [id number] 06:00:00* Test Item Value Reference Range Interpretation Comments STAIN ACCEPTABILITY (test code = STN ACCEPTABLE) STAIN ACCEPTABLE ANISOCYTOSIS (test code = ANISO) 2+ MICROCYTOSIS (test code = MICR) 2+ PLATELET ESTIMATE (test code = PLTEST) ADEQUATE PLATELET MORPHOLOGY (test code = PLTMORPH) NORMAL BASIC METABOLIC [id number] 05:57:00* Test Item Value Reference Range Interpretation [...] code = CA) mg/dL 8.5-10.1 CBC W/AUTO [id number] 05:35:00* Test Item Value Reference Range Interpretation [...] = MDIFF) NO, ONLY SCAN NEEDED DIFFERENTIAL [id number] 05:35:00* Test Item Value Reference Range Interpretation Comments STAIN ACCEPTABILITY (test code = STN ACCEPTABLE) CABOT RINGS (test code = CAB) MORPHOLOGY COMMENT (test code = MOC) PLATELET ESTIMATE (test code = PLTEST) PLATELET MORPHOLOGY (test code = PLTMORPH) CBC W/AUTO [id number] 05:35:00* Test Item Value Reference Range Interpretation [...] = MDIFF) NO, ONLY SCAN NEEDED DIFFERENTIAL [id number] 05:35:00* Test Item Value Reference Range Interpretation Comments STAIN ACCEPTABILITY (test code = STN ACCEPTABLE) MORPHOLOGY COMMENT (test code = MOC) PLATELET ESTIMATE (test code = PLTEST) PLATELET MORPHOLOGY (test code = PLTMORPH) CBC W/AUTO [id number] 05:35:00* Test Item Value Reference Range Interpretation [...] = MDIFF) NO, ONLY SCAN NEEDED DIFFERENTIAL [id number] 05:35:00* Test Item Value Reference Range Interpretation Comments STAIN ACCEPTABILITY (test code = STN ACCEPTABLE) MORPHOLOGY COMMENT (test code = MOC) PLATELET ESTIMATE (test code = PLTEST) PLATELET MORPHOLOGY (test code = PLTMORPH) CBC W/AUTO [id number] 05:35:00* Test Item Value Reference Range Interpretation [...] = MDIFF) NO, ONLY SCAN NEEDED DIFFERENTIAL [id number] 05:35:00* Test Item Value Reference Range Interpretation Comments STAIN ACCEPTABILITY (test code = STN ACCEPTABLE) CABOT RINGS (test code = CAB) MORPHOLOGY COMMENT (test code = MOC) PLATELET ESTIMATE (test code = PLTEST) PLATELET MORPHOLOGY (test code = PLTMORPH) [id number] 20:01:00* Test Item Value Reference Range Interpretation Comments GLUBED (test code = GLUBED) 220 mg/dL 74-106 H Performed by certified drill press operator for metal at [facility] [id number] 19:18:00* Test Item Value Reference Range Interpretation Comments GLYCOSYLATED HEMOGLOBIN (HA1C) (test code = GLYHGB) 9.6 % HbA1 SUGGESTED DIAGNOSIS: HbA1C (%) Diabetic >6.4Prediabetes 5.7 - 6.4Normal <5.7 ESTIMATED AVERAGE GLUCOSE (test code = EAG) 229 MG/DL - XR CHEST 1 [id number] 18:54:00 FAX: Loan Cortez NP [phone] [place]: St: [facility] FAX: Benjamin Francis MD [phone] Name: KALYANI TALAVERA [facility] : 1955 Age/S: 64/F [address] Unit #: [id number] Loc: V.3012 [place] [address] Phys: Loan Cortez NP Acct: [id number] Dis Date: Status: ADM IN PHONE #: [phone] Exam Date: 08/27/2019 1849 FAX #: [phone] Reason: shortness of breath EXAMS: CPT CODE: [id number] XR CHEST 1 V 38484 REASON FOR EXAM: shortness of breath EXAM [...] Leyva(Megan) Trnscrd Date/Time/By: 08/27/2019 (1853) : By: LeanneVTL Orig Print D/T: S: 08/27/2019 (1856) PAGE 1 Signed Report [id number] 18:35:00* Test Item Value Reference Range Interpretation Comments GLUBED (test code = GLUBED) 201 mg/dL 74-106 H Performed by certified drill press operator for metal at [facility] T4 [id number] 18:03:00* Test Item Value Reference Range Interpretation Comments T4 FREE (test code = T4F) 1.10 ng/dL 0.76-1.46 N THYROID STIMULATING [id number] 18:03:00* Test Item Value Reference Range Interpretation Comments THYROID STIMULATING HORMONE (test code = TSH) 1.260 uIU/mL 0.36-3.7 4 N TSH REFERENCE RANGES: EUTHYROID: 0.35 - 4.3 mIU/mL HYPO : > 5.5 mIU/mL HYPER : < 0.35 mIU/mL [id number] 16:50:00* Test Item Value Reference Range Interpretation Comments GLUBED (test code = GLUBED) 217 mg/dL 74-106 H Performed by certified drill press operator for metal at [facility] [id number] 12:15:00* Test Item Value Reference Range Interpretation Comments GLUBED (test code = GLUBED) 272 mg/dL 74-106 H Performed by certified drill press operator for metal at [facility] [id number] 08:14:00* Test Item Value Reference Range Interpretation Comments GLUBED (test code = GLUBED) 322 mg/dL 74-106 H Performed by certified drill press operator for metal at [facility] [id number] 04:01:00* Test Item Value Reference Range Interpretation Comments GLUBED (test code = GLUBED) 329 mg/dL 74-106 H Performed by certified drill press operator for metal at [facility] CBC W/AUTO [id number] 23:42:00* Test Item Value Reference Range Interpretation [...] = MDIFF) NO, ONLY SCAN NEEDED DIFFERENTIAL [id number] 23:42:00* Test Item Value Reference Range Interpretation Comments STAIN ACCEPTABILITY (test code = STN ACCEPTABLE) STAIN ACCEPTABLE ANISOCYTOSIS (test code = ANISO) 2+ MICROCYTOSIS (test code = MICR) 2+ PLATELET ESTIMATE (test code = PLTEST) ADEQUATE PLATELET MORPHOLOGY (test code = PLTMORPH) NORMAL COMPREHENSIVE METABOLIC [id number] 23:14:00* Test Item Value Reference Range Interpretation [...] 628 mg/dL 74-106 Re sults called to [id number] by V.LAB.JP1 08/26/19 2313Critical results verified and [...] range due to change in reagent. URINALYSIS [id number] 23:08:00* Test Item Value Reference Range Interpretation [...] #/HPF NONE Urine Source? Clean CatchCOMPREHENSIVE METABOLIC [id number] 23:02:00* Test Item Value Reference Range Interpretation [...] code = ALKP) IUnit/L 45-117 CBC W/AUTO [id number] 22:58:00* Test Item Value Reference Range Interpretation [...] = MDIFF) NO, ONLY SCAN NEEDED DIFFERENTIAL [id number] 22:58:00* Test Item Value Reference Range Interpretation Comments STAIN ACCEPTABILITY (test code = STN ACCEPTABLE) CABOT RINGS (test code = CAB) MORPHOLOGY COMMENT (test code = MOC) PLATELET ESTIMATE (test code = PLTEST) PLATELET MORPHOLOGY (test code = PLTMORPH) CBC W/AUTO [id number] 22:58:00* Test Item Value Reference Range Interpretation [...] = MDIFF) NO, ONLY SCAN NEEDED DIFFERENTIAL [id number] 22:58:00* Test Item Value Reference Range Interpretation Comments STAIN ACCEPTABILITY (test code = STN ACCEPTABLE) CABOT RINGS (test code = CAB) MORPHOLOGY COMMENT (test code = MOC) PLATELET ESTIMATE (test code = PLTEST) PLATELET MORPHOLOGY (test code = PLTMORPH) CBC W/AUTO [id number] 22:58:00* Test Item Value Reference Range Interpretation [...] = MDIFF) NO, ONLY SCAN NEEDED DIFFERENTIAL [id number] 22:58:00* Test Item Value Reference Range Interpretation Comments STAIN ACCEPTABILITY (test code = STN ACCEPTABLE) MORPHOLOGY COMMENT (test code = MOC) PLATELET ESTIMATE (test code = PLTEST) PLATELET MORPHOLOGY (test code = PLTMORPH) CBC W/AUTO [id number] 22:58:00* Test Item Value Reference Range Interpretation [...] = MDIFF) NO, ONLY SCAN NEEDED DIFFERENTIAL [id number] 22:58:00* Test Item Value Reference Range Interpretation Comments STAIN ACCEPTABILITY (test code = STN ACCEPTABLE) CABOT RINGS (test code = CAB) MORPHOLOGY COMMENT (test code = MOC) PLATELET ESTIMATE (test code = PLTEST) PLATELET MORPHOLOGY (test code = PLTMORPH) VENOUS BLOOD [id number] 22:36:00* Test Item Value Reference Range Interpretation [...] [place] 22:17 - 08/26/2019; by Marcie TONY POWDER MIXER METHEMOGLOBIN (test code = METHGB) 0.1 % 0.0-1.50 N BASIC METABOLIC [id number] 14:12:00* Test Item Value Reference Range Interpretation [...] CA) 8.7 mg/dL 8.5-10.1 N BASIC METABOLIC [id number] 14:06:00* Test Item Value Reference Range Interpretation [...] CA) 8.7 mg/dL 8.5-10.1 N CBC W/AUTO [id number] 13:33:00* Test Item Value Reference Range Interpretation [...] K/mm3 0.0-0.1 N - CT C-SPINE W/O [id number] 08:02:00 Name: KALYANI TALAVERA [facility] : 1955 Age/S: 64 / F [address] [facility] Unit #: [id number] Loc: [place] [address] Phys: Thelma Loyd DO Acct: [id number] Dis Date: Status: REG ER PHONE #: [phone] Exam Date: 08/06/2019 0754 FAX #: [phone] Reason: Neck Pain EXAMS: CPT CODE: [id number] CT C-SPINE W/O CONTRAST 27202 HISTORY: Neck Pain, status post fall TECHNIQUE: [...] Koenig RT(R),(MR),(CT) CTDI: DLP: Trnscb Date/Time: 08/06/2019 (08) [email or web address] Orig Print D/T: S: 08/06/2019 (0805) PAGE 1 Signed Report BASIC METABOLIC [id number] 07:06:00* Test Item Value Reference Range Interpretation [...] CA) 9.1 mg/dL 8.5-10.1 N BASIC METABOLIC [id number] 07:02:00* Test Item Value Reference Range Interpretation [...] code = CA) mg/dL 8.5-10.1 CBC W/O [id number] 06:41:00* Test Item Value Reference Range Interpretation [...] fL 6.7-11.0 N - CT C-SPINE W/O [id number] 06:25:00 Name: KALYANI TALAVERA [facility] : 1955 Age/S: 64 / F [address] [facility] Unit #: [id number] Loc: [place] [address] Phys: Thelma Loyd DO Acct: [id number] Dis Date: Status: REG ER PHONE #: [phone] Exam Date: 08/06/2019 06 FAX #: [phone] Reason: Neck Pain EXAMS: CPT CODE: [id number] CT C-SPINE W/O CONTRAST 27541 EXAM: - CT C-SPINE W/O CONTRAST HISTORY: [...] M.D. CC: Thelma Loyd DO; Benjamin Masters Technologist:RT EDUARDO CTDI: DLP: Trnscb Date/Time: 08/06/2019 (06 25) [email or web address] Orig Print D/T: S: 08/06/2019 (0629) P AGE 2 Signed Report - CT MAXIFAC W/O [id number] 06:21:00 Name: KALYANI TALAVERA [facility] : 1955 Age/S: 64 / F [address] Unit #: [id number] Loc: [place] [address] Phys: Thelma Loyd Acct: [id number] Dis Date: Status: REG ER PHONE #: [phone] Exam Date: 08/06/2019 06 FAX #: [phone] Reason: TRAUMA EXAMS: CPT CODE: [id number] [place] MAXIF[place] [address] EXAM: - CT MAXIFAC W/O CNT HISTORY: [...] M.D. CC: Thelma Loyd DO; Benjamin Masters Technologist:RT EDUARDO CTDI: DLP: Trnscb Date/Time: 08/06/2019 (620) [email or web address] Orig Print D/T: S: 08/06/2019 (0692) PAGE 1 Signed Report - CT HEAD/BRAIN W/O [id number] 06:20:00 Name: KALYANI TALAVERA [facility] : 1955 Age/S: 64 / F [address] [place] Unit #: [id number] Loc: [place] [address] Phys: Thelma Loyd DO Acct: [id number] Dis Date: Status: REG ER PHONE #: [phone] Exam Date: 08/06/2019 0559 FAX #: [phone] Reason: HEADACHE EXAMS: CPT CODE: [id number] CT HEAD/BRAIN W/O CONT 72594 EXAM: - CT HEAD/BRAIN W/O CONT Location [...] 1 Signed Report (CONTINUED) Name: KALYANI MOSES [facility] : 1955 Age/S: 64 / F [address] [place] Unit #: [id number] L oc: [place] [address] Phys: Thelma Loyd DO Acct: [id number] Dis Date: Status: REG ER PHONE #: [phone] Exam Date: 08/06/2019 0559 FAX #: [phone] Malinda son: HEADACHE EXAMS: CPT CODE: [id number] CT HEAD/BRAIN W/O CONT 52289 <Continued> CC: Thelma Loyd DO; Benjamin Masters Technologist:JORDEN MERCADO, RT CTDI: DLP: Trnscb Date/Time: 08/06/2019 (06) [email or web address] Orig Print D/T: S: 08/06/2019 (3718) PAGE 2 Signed Report BASIC METABOLIC [id number] 07:49:00* Test Item Value Reference Range Interpretation [...] code = CA) 8.7 mg/dL 8.5-10.1 N [id number] 06:05:00* Test Item Value Reference Range Interpretation Comments GLUBED (test code = GLUBED) 181 mg/dL 74-106 H Performed by certified drill press operator for metal at [facility] [id number] 20:37:00* Test Item Value Reference Range Interpretation Comments GLUBED (test code = GLUBED) 285 mg/dL 74-106 H Performed by certified drill press operator for metal at [facility] [id number] 17:15:00* Test Item Value Reference Range Interpretation Comments GLUBED (test code = GLUBED) 84 mg/dL 74-106 N Performed by certified drill press operator for metal at [facility] [id number] 17:15:00* Test Item Value Reference Range Interpretation Comments GLUBED (test code = GLUBED) 166 mg/dL 74-106 H Performed by certified drill press operator for metal at [facility] BASIC METABOLIC [id number] 07:13:00* Test Item Value Reference Range Interpretation [...] CA) 8.7 mg/dL 8.5-10.1 N BASIC METABOLIC [id number] 07:09:00* Test Item Value Reference Range Interpretation [...] code = CA) mg/dL 8.5-10.1 CBC W/AUTO [id number] 06:42:00* Test Item Value Reference Range Interpretation [...] DIFF REQUIRED (test code = MDIFF) NO [id number] 06:33:00* Test Item Value Reference Range Interpretation Comments GLUBED (test code = GLUBED) 180 mg/dL 74-106 H Performed by certified drill press operator for metal at [facility] [id number] 20:48:00* Test Item Value Reference Range Interpretation Comments GLUBED (test code = GLUBED) 403 mg/dL 74-106 H Performed by certified drill press operator for metal at [facility] [id number] 18:00:00* Test Item Value Reference Range Interpretation Comments GLUBED (test code = GLUBED) 326 mg/dL 74-106 H Performed by certified drill press operator for metal at [facility] [id number] 14:21:00* Test Item Value Reference Range Interpretation Comments GLYCOSYLATED HEMOGLOBIN (HA1C) (test code = GLYHGB) 8.9 % HbA1 SUGGESTED DIAGNOSIS: HbA1C (%) Diabetic >6.4Prediabetes 5.7 - 6.4Normal <5.7 ESTIMATED AVERAGE GLUCOSE (test code = EAG) 209 MG/DL [id number] 13:22:00* Test Item Value Reference Range Interpretation Comments GLUBED (test code = GLUBED) 222 mg/dL 74-106 H Performed by certified drill press operator for metal at [facility] CBC W/AUTO [id number] 10:20:00* Test Item Value Reference Range Interpretation [...] = MDIFF) NO, ONLY SCAN NEEDED DIFFERENTIAL [id number] 10:20:00* Test Item Value Reference Range Interpretation Comments STAIN ACCEPTABILITY (test code = STN ACCEPTABLE) STAIN ACCEPTABLE MORPHOLOGY COMMENT (test code = MOC) NORMAL PLATELET ESTIMATE (test code = PLTEST) ADEQUATE PLATELET MORPHOLOGY (test code = PLTMORPH) NORMAL COMPREHENSIVE METABOLIC [id number] 10:05:00* Test Item Value Reference Range Interpretation [...] due to change in reagent. B-TYPE NATRIURETIC [id number] 09:56:00* Test Item Value Reference Range Interpretation Comments B-TYPE NATRIURETIC PEPTIDE (test code = BNP) 62.56 pgram/mL 0-100 N COMPREHENSIVE METABOLIC [id number] 09:55:00* Test Item Value Reference Range Interpretation [...] code = ALKP) IUnit/L 45-117 CBC W/AUTO [id number] 09:21:00* Test Item Value Reference Range Interpretation [...] = MDIFF) NO, ONLY SCAN NEEDED DIFFERENTIAL [id number] 09:21:00* Test Item Value Reference Range Interpretation Comments STAIN ACCEPTABILITY (test code = STN ACCEPTABLE) CABOT RINGS (test code = CAB) MORPHOLOGY COMMENT (test code = MOC) PLATELET ESTIMATE (test code = PLTEST) PLATELET MORPHOLOGY (test code = PLTMORPH) CBC W/AUTO [id number] 09:21:00* Test Item Value Reference Range Interpretation [...] = MDIFF) NO, ONLY SCAN NEEDED DIFFERENTIAL [id number] 09:21:00* Test Item Value Reference Range Interpretation Comments STAIN ACCEPTABILITY (test code = STN ACCEPTABLE) MORPHOLOGY COMMENT (test code = MOC) PLATELET ESTIMATE (test code = PLTEST) PLATELET MORPHOLOGY (test code = PLTMORPH) CBC W/AUTO [id number] 09:20:00* Test Item Value Reference Range Interpretation [...] = MDIFF) NO, ONLY SCAN NEEDED DIFFERENTIAL [id number] 09:20:00* Test Item Value Reference Range Interpretation Comments STAIN ACCEPTABILITY (test code = STN ACCEPTABLE) CABOT RINGS (test code = CAB) MORPHOLOGY COMMENT (test code = MOC) PLATELET ESTIMATE (test code = PLTEST) PLATELET MORPHOLOGY (test code = PLTMORPH) CBC W/AUTO [id number] 09:20:00* Test Item Value Reference Range Interpretation [...] = MDIFF) NO, ONLY SCAN NEEDED DIFFERENTIAL [id number] 09:20:00* Test Item Value Reference Range Interpretation Comments STAIN ACCEPTABILITY (test code = STN ACCEPTABLE) CABOT RINGS (test code = CAB) MORPHOLOGY COMMENT (test code = MOC) PLATELET ESTIMATE (test code = PLTEST) PLATELET MORPHOLOGY (test code = PLTMORPH) [id number] 06:25:00* Test Item Value Reference Range Interpretation Comments GLUBED (test code = GLUBED) 208 mg/dL 74-106 H Performed by certified drill press operator for metal at [facility] [id number] 20:49:00* Test Item Value Reference Range Interpretation Comments GLUBED (test code = GLUBED) 383 mg/dL 74-106 H Performed by certified drill press operator for metal at [facility] [id number] 20:49:00* Test Item Value Reference Range Interpretation Comments GLUBED (test code = GLUBED) 421 mg/dL 74-106 H Performed by certified drill press operator for metal at [facility] - XR CHEST 1 [id number] 16:23:00 FAX: Alfa Moscoso MD [phone] [place]: St: [facility] FAX: Benjamin Francis MD [phone] Name: KALYANI TALAVERA [facility] : 1955 Age/S: 64/F [address] [facility] Unit #: [id number] Loc: V.2066 [place] [address] Phys: Alfa Cassidy MD Acct: [id number] Dis Date: Status: ADM IN PHONE #: [phone] Exam Date: 06/29/2019 1600 FAX #: [phone] Reason: CHF EXAMS: CPT CODE: [id number] XR CHEST 1 V 02360 HISTORY: CHF. COMPARISON: June 28, 2019. Single [...] Technologist: Kizzy Cisse RT(R) Trnscrd Date/Time/By: 06/29/2019 (2057) : By: [email or web address] Orig Print D/T: S: 06/30/2019 (2989) PAGE 1 Signed Report GLUBED 2019-06-29 12:29:00* Test Item Value Reference Range Interpretation Comments GLUBED (test code = GLUBED) 310 mg/dL 74-106 H Performed by certified drill press operator for metal at [facility] [id number] 06:19:00* Test Item Value Reference Range Interpretation Comments GLUBED (test code = GLUBED) 339 mg/dL 74-106 H Performed by certified drill press operator for metal at [facility] [id number] 00:36:00* Test Item Value Reference Range Interpretation Comments GLUBED (test code = GLUBED) 454 mg/dL 74-106 H Performed by certified drill press operator for metal at [facility] [id number] 20:49:00* Test Item Value Reference Range Interpretation Comments GLUBED (test code = GLUBED) 480 mg/dL 74-106 H Performed by certified drill press operator for metal at [facility] [id number] 18:21:00* Test Item Value Reference Range Interpretation Comments GLUBED (test code = GLUBED) 388 mg/dL 74-106 H Performed by certified drill press operator for metal at [facility] URINALYSIS [id number] 11:46:00* Test Item Value Reference Range Interpretation [...] #/LPF FEW Urine Source? Clean CatchB-TYPE NATRIURETIC [id number] 10:41:00* Test Item Value Reference Range Interpretation [...] taking into account the patients history. PROTHROMBIN [id number] 09:36:00* Test Item Value Reference Range Interpretation [...] (2.5-3.5) IS PATIENT ON ANTICOAGULANTS? NTHROMBOPLASTIN TIME [id number] 09:36:00* Test Item Value Reference Range Interpretation Comments THROMBOPLASTIN TIME PARTIAL (test code = PTT) 33.1 seconds 25.0-36. 5 N IS PATIENT ON ANTICOAGULANTS? [id number] 09:36:00* Test Item Value Reference Range Interpretation [...] cirrhosis - IS PATIENT ON ANTICOAGULANTS? NLACTIC [id number] 09:31:00* Test Item Value Reference Range Interpretation Comments LACTIC ACID (test code = LACT) 0.9 mmol/L 0.4-1.9 N BASIC METABOLIC [id number] 09:23:00* Test Item Value Reference Range Interpretation [...] code = CA) 8.8 mg/dL 8.5-10.1 N [id number] 09:23:00* Test Item Value Reference Range Interpretation Comments TROPONIN-I (test code = TROPI) <0.015 ng/mL 0-0.045 N - XR CHEST 1 [id number] 08:57:00 FAX: Amish Nur Si [phone] [place]: B St: REG FAX: Anastacio Burgess MD Name: KALYANI TALAVERA [facility] : 1955 Age/S: 64/F [address] Unit #: [id number] Loc: [place] [address] Phys: Anastacio Burgess MD Acct: [id number] Dis Date: Status: REG ER PHONE #: [phone] Exam Date: 06/28/2019825 FAX #: [phone] Reason: Shortness of Breath EXAMS: CPT CODE: [id number] XR CHEST 1 V 78224 REASON FOR EXAM: Shortness of Breath Exam [...] lung volumes with bibasilar subsegmental atelectasis. Location: [facility] at 0857 Reported and signed by: Dago Goodson MD CC: Lucille Land MD; Anastacio Burgess MD Technologist: Dayan Gallagher Trnscrd Date/Time/By: 06/28/2019 (0857) : By: [email or web address] Orig Print D/T: S: 06/28/2019 (4639) PAGE 1 Signed Report VENOUS BLOOD [id number] 08:54:00* Test Item Value Reference Range Interpretation Comments VENOUS BLOOD GAS PH (test code = PHV) 7.56 7.30-7.40 HH Results called to and read back by jairo 08:52 - 06/28/2019; by [employer] VENOUS BLOOD GAS PCO2 (test code = PCO2V) 22.6 mm Hg 39.0-51.0 LL Results called to and read back by jairo 08:52 - 06/28/2019; by [employer] teacher VENOUS BLOOD GAS PO2 (test code = [...] METHGB) 0.3 % 0.0-1.50 N CBC W/O [id number] 08:45:00* Test Item Value Reference Range Interpretation [...] code = MPV) 10.1 fL 6.7-11.0 N [id number] 16:30:00* Test Item Value Reference Range Interpretation Comments GLUBED (test code = GLUBED) 256 mg/dL 74-106 H Performed by certified drill press operator for metal at [facility] [id number] 16:30:00* Test Item Value Reference Range Interpretation Comments GLUBED (test code = GLUBED) 277 mg/dL 74-106 H Performed by certified drill press operator for metal at [facility] [id number] 07:50:00* Test Item Value Reference Range Interpretation Comments GLUBED (test code = GLUBED) 145 mg/dL 74-106 H Performed by certified drill press operator for metal at [facility] [id number] 20:38:00* Test Item Value Reference Range Interpretation Comments GLUBED (test code = GLUBED) 250 mg/dL 74-106 H Performed by certified drill press operator for metal at [facility] [id number] 16:19:00* Test Item Value Reference Range Interpretation Comments GLUBED (test code = GLUBED) 340 mg/dL 74-106 H Performed by certified drill press operator for metal at [facility] [id number] 11:09:00* Test Item Value Reference Range Interpretation Comments GLUBED (test code = GLUBED) 102 mg/dL 74-106 N Performed by certified drill press operator for metal at [facility]2019-11-20 07:20:00* Test Item Value Reference Range Interpretation Comments GLUBED (test code = GLUBED) 144 mg/dL 74-106 H Performed by certified drill press operator for metal at [facility] [id number] 21:56:00* Test Item Value Reference Range Interpretation Comments GLUBED (test code = GLUBED) 328 mg/dL 74-106 H Performed by certified drill press operator for metal at [facility] [id number] 16:11:00* Test Item Value Reference Range Interpretation Comments GLUBED (test code = GLUBED) 378 mg/dL 74-106 H Performed by certified drill press operator for metal at [facility] [id number] 11:08:00* Test Item Value Reference Range Interpretation Comments GLUBED (test code = GLUBED) 168 mg/dL 74-106 H Performed by certified drill press operator for metal at [facility] [id number] 07:29:00* Test Item Value Reference Range Interpretation Comments GLUBED (test code = GLUBED) 205 mg/dL 74-106 H Performed by certified drill press operator for metal at [facility] B-TYPE NATRIURETIC [id number] 06:12:00* Test Item Value Reference Range Interpretation Comments B-TYPE NATRIURETIC PEPTIDE (test code = BNP) 86.51 pgram/mL 0-100 N COMPREHENSIVE METABOLIC [id number] 05:53:00* Test Item Value Reference Range Interpretation [...] due to change in reagent. COMPREHENSIVE METABOLIC [id number] 05:37:00* Test Item Value Reference Range Interpretation [...] code = ALKP) IUnit/L 45-117 CBC W/AUTO [id number] 05:26:00* Test Item Value Reference Range Interpretation [...] DIFF REQUIRED (test code = MDIFF) NO [id number] 02:25:00* Test Item Value Reference Range Interpretation Comments GLUBED (test code = GLUBED) 408 mg/dL 74-106 H Performed by certified drill press operator for metal at [facility] [id number] 17:10:00* Test Item Value Reference Range Interpretation Comments GLUCOSE (test code = GLU) 536 mg/dL 74-106 HH Re sults called to [id number] by V.LAB.LT 06/10/19 7020Critical results verified and read back by Nurse? Y [id number] 16:05:00* Test Item Value Reference Range Interpretation Comments GLUBED (test code = GLUBED) > 500 mg/dL 74-106 HH [facility] [id number] 11:05:00* Test Item Value Reference Range Interpretation Comments GLUBED (test code = GLUBED) 279 mg/dL 74-106 H Performed by certified drill press operator for metal at [facility] BASIC METABOLIC [id number] 11:02:00* Test Item Value Reference Range Interpretation [...] code = CA) 8.9 mg/dL 8.5-10.1 N [id number] 11:02:00* Test Item Value Reference Range Interpretation Comments MAGNESIUM (test code = MAG) 2.0 mg/dL 1.8-2.4 N BASIC METABOLIC [id number] 10:52:00* Test Item Value Reference Range Interpretation [...] CALCIUM (test code = CA) mg/dL 8.5-10.1 [id number] 10:52:00* Test Item Value Reference Range Interpretation Comments MAGNESIUM (test code = MAG) mg/dL 1.8-2.4 [id number] 07:27:00* Test Item Value Reference Range Interpretation Comments GLUBED (test code = GLUBED) 260 mg/dL 74-106 H Performed by certified drill press operator for metal at [facility] [id number] 20:43:00* Test Item Value Reference Range Interpretation Comments GLUBED (test code = GLUBED) 417 mg/dL 74-106 H Performed by certified drill press operator for metal at [facility] [id number] 15:54:00* Test Item Value Reference Range Interpretation Comments GLUBED (test code = GLUBED) 389 mg/dL 74-106 H Performed by certified drill press operator for metal at [facility] [id number] 12:24:00* Test Item Value Reference Range Interpretation Comments GLUBED (test code = GLUBED) 389 mg/dL 74-106 H Performed by certified drill press operator for metal at [facility] [id number] 07:56:00* Test Item Value Reference Range Interpretation Comments GLUBED (test code = GLUBED) 350 mg/dL 74-106 H Performed by certified drill press operator for metal at [facility] [id number] 04:10:00* Test Item Value Reference Range Interpretation Comments GLUBED (test code = GLUBED) 427 mg/dL 74-106 H Performed by certified drill press operator for metal at [facility] [id number] 19:56:00* Test Item Value Reference Range Interpretation Comments GLUBED (test code = GLUBED) 384 mg/dL 74-106 H Performed by certified drill press operator for metal at [facility] [id number] 16:27:00* Test Item Value Reference Range Interpretation Comments GLUBED (test code = GLUBED) 378 mg/dL 74-106 H Performed by certified drill press operator for metal at [facility] [id number] 12:06:00* Test Item Value Reference Range Interpretation Comments GLUBED (test code = GLUBED) 402 mg/dL 74-106 H Performed by certified drill press operator for metal at [facility] [id number] 11:11:00* Test Item Value Reference Range Interpretation Comments TROPONIN-I (test code = TROPI) <0.015 ng/mL 0-0.045 N COMMENTS TO LINE COOK: COLLECT 3 HOURS AFTER PREVIOUS SAMPLEURINALYSIS [id number] 08:30:00* Test Item Value Reference Range Interpretation [...] MUCU) FEW #/LPF FEW Urine Source? Clean [id number] 07:35:00* Test Item Value Reference Range Interpretation Comments TROPONIN-I (test code = TROPI) <0.015 ng/mL 0-0.045 N COMMENTS TO LINE COOK: COLLECT 3 HOURS AFTER PREVIOUS [id number] 06:35:00* Test Item Value Reference Range Interpretation Comments GLUBED (test code = GLUBED) 298 mg/dL 74-106 H Performed by certified drill press operator for metal at [facility] BASIC METABOLIC [id number] 01:22:00* Test Item Value Reference Range Interpretation [...] CA) 8.5 mg/dL 8.5-10.1 N HEPATIC FUNCTION [id number] 01:22:00* Test Item Value Reference Range Interpretation [...] reference range due to change in reagent. [id number] 01:22:00* Test Item Value Reference Range Interpretation Comments LIPASE (test code = LIP) 143 U/L 73.0-393.0 N [id number] 01:22:00* Test Item Value Reference Range Interpretation Comments TROPONIN-I (test code = TROPI) <0.015 ng/mL 0-0.045 N BASIC METABOLIC [id number] 01:14:00* Test Item Value Reference Range Interpretation [...] code = CA) mg/dL 8.5-10.1 HEPATIC FUNCTION [id number] 01:14:00* Test Item Value Reference Range Interpretation [...] TOTAL (test code = ALKP) IUnit/L 45-117 [id number] 01:14:00* Test Item Value Reference Range Interpretation Comments LIPASE (test code = LIP) U/L 73.0-393.0 [id number] 01:14:00* Test Item Value Reference Range Interpretation Comments TROPONIN-I (test code = TROPI) ng/mL 0-0.045 B-TYPE NATRIURETIC [id number] 00:16:00* Test Item Value Reference Range Interpretation Comments B-TYPE NATRIURETIC PEPTIDE (test code = BNP) 43.43 pgram/mL 0-100 N PROTHROMBIN [id number] 23:21:00* Test Item Value Reference Range Interpretation [...] (2.5-3.5) IS PATIENT ON ANTICOAGULANTS? NTHROMBOPLASTIN TIME [id number] 23:21:00* Test Item Value Reference Range Interpretation Comments THROMBOPLASTIN TIME PARTIAL (test code = PTT) 28.8 seconds 25.0-36. 5 N IS PATIENT ON ANTICOAGULANTS? NCBC W/O [id number] 23:12:00* Test Item Value Reference Range Interpretation [...] fL 6.7-11.0 N - XR CHEST 1 [id number] 23:01:00 FAX: Amish Nur [phone] [place]: St: [facility] FAX: Anastacio Burgess MD Name: KALYANI TALAVERA [facility] : 1955 Age/S: 64/F [address] [facility] Unit #: [id number] Loc: [place] [address] Phys: Anastacio Burgess MD Acct: [id number] Dis Date: Status: REG ER PHONE #: [phone] Exam Date: 06/07/2019 2250 FAX #: [phone] Reason: Abdominal Pain EXAMS: CPT CODE: [id number] XR CHEST 1 V 84268 EXAM: Chest x-ray, one view; INFORMATION: Vomiting; abdominal pain; FINDINGS: Increased densities of the left lung which may be due to edema or infiltrative changes. The right lung is slightly better aerated. Bilateral atelectatic changes. The heart is slightly enlarged. IMPRESSION: 1. Left pulmonary edema or possibly interstitial infiltrative changes and basilar atelectatic changes. 2. Mild cardiomegaly. Location code: [facility] at 2301 Reported and signed by: Jc Bravo M.D. CC: Lucille Nur MD; Anastacio Burgess MD Technologist: Marcelino Reid RT(R); SCOOBY PARSONS RT(R) Trnscrd Date/Time/By: 06/07/2019 (512) : By: Leanne GRW Orig Print D/T: S: 06/07/2019 (1090) PAGE 1 Signed Report - CT HEAD/BRAIN W/O [id number] 13:15:00 Name: KALYANI TALAVERA [facility] : 1955 Age/S: 64 / F [address] [facility] Unit #: [id number] Loc: [place] [address] Phys: Jessenia Be MD Acct: [id number] Dis Date: Status: REG ER PHONE #: [phone] Exam Date: 05/31/2019 1246 FAX #: [phone] Reason: pain, trauma EXAMS: CPT CODE: [id number] CT HEAD/BRAIN W/O CONT 22071 HISTORY: pain, trauma TECHNIQUE: Noncontrast 2.5 mm [...] is unchanged from the prior examination. Location: [facility] at 1315 Reported and signed by: Dago Goodson MD CC: Lucille Land MD; Jessenia Be MD Technologist:Kael Bhardwaj RT(R) CTDI: DLP: Trnscb Date/Time: 05/31/2019 (1315) t.[email or web address] Orig Print D/T: S: 05/31/2019 (6155) PAGE 1 Signed Report GLUBED 2019-05-31 12:02:00* Test Item Value Reference Range Interpretation Comments GLUBED (test code = GLUBED) 200 mg/dL 74-106 H Performed by certified drill press operator for metal at [facility] [id number] 09:10:00* Test Item Value Reference Range Interpretation Comments GLUBED (test code = GLUBED) 83 mg/dL 74-106 N Performed by certified drill press operator for metal at [facility] [id number] 11:47:00* Test Item Value Reference Range Interpretation Comments GLUBED (test code = GLUBED) 192 mg/dL 74-106 H Performed by certified drill press operator for metal at [facility] [id number] 07:59:00* Test Item Value Reference Range Interpretation Comments GLUBED (test code = GLUBED) 164 mg/dL 74-106 H Performed by certified drill press operator for metal at [facility] [id number] 21:14:00* Test Item Value Reference Range Interpretation Comments GLUBED (test code = GLUBED) 215 mg/dL 74-106 H Performed by certified drill press operator for metal at [facility] [id number] 15:34:00* Test Item Value Reference Range Interpretation Comments GLUBED (test code = GLUBED) 130 mg/dL 74-106 H Performed by certified drill press operator for metal at [facility] [id number] 12:10:00* Test Item Value Reference Range Interpretation Comments GLUBED (test code = GLUBED) 231 mg/dL 74-106 H Performed by certified drill press operator for metal at [facility] [id number] 08:38:00* Test Item Value Reference Range Interpretation Comments GLUBED (test code = GLUBED) 173 mg/dL 74-106 H Performed by certified drill press operator for metal at [facility] [id number] 20:39:00* Test Item Value Reference Range Interpretation Comments GLUBED (test code = GLUBED) 129 mg/dL 74-106 H Performed by certified drill press operator for metal at [facility] [id number] 16:16:00* Test Item Value Reference Range Interpretation Comments GLUBED (test code = GLUBED) 337 mg/dL 74-106 H Performed by certified drill press operator for metal at [facility] [id number] 12:15:00* Test Item Value Reference Range Interpretation Comments GLUBED (test code = GLUBED) 247 mg/dL 74-106 H Performed by certified drill press operator for metal at [facility] [id number] 08:03:00* Test Item Value Reference Range Interpretation Comments GLUBED (test code = GLUBED) 170 mg/dL 74-106 H Performed by certified drill press operator for metal at [facility] [id number] 20:11:00* Test Item Value Reference Range Interpretation Comments GLUBED (test code = GLUBED) 244 mg/dL 74-106 H Performed by certified drill press operator for metal at [facility] [id number] 17:36:00* Test Item Value Reference Range Interpretation Comments GLUBED (test code = GLUBED) 238 mg/dL 74-106 H Performed by certified drill press operator for metal at [facility] [id number] 16:06:00* Test Item Value Reference Range Interpretation Comments GLUBED (test code = GLUBED) 196 mg/dL 74-106 H Performed by certified drill press operator for metal at [facility] [id number] 12:42:00* Test Item Value Reference Range Interpretation Comments GLUBED (test code = GLUBED) 292 mg/dL 74-106 H Performed by certified drill press operator for metal at [facility] [id number] 09:09:00* Test Item Value Reference Range Interpretation Comments GLUBED (test code = GLUBED) 196 mg/dL 74-106 H Performed by certified drill press operator for metal at [facility] [id number] 20:30:00* Test Item Value Reference Range Interpretation Comments GLUBED (test code = GLUBED) 213 mg/dL 74-106 H Performed by certified drill press operator for metal at [facility] [id number] 18:23:00* Test Item Value Reference Range Interpretation Comments GLUBED (test code = GLUBED) 102 mg/dL 74-106 N Performed by certified drill press operator for metal at [facility] [id number] 17:02:00* Test Item Value Reference Range Interpretation Comments GLUBED (test code = GLUBED) 181 mg/dL 74-106 H Performed by certified drill press operator for metal at [facility] BASIC METABOLIC [id number] 15:17:00* Test Item Value Reference Range Interpretation [...] CA) 9.3 mg/dL 8.5-10.1 N BASIC METABOLIC [id number] 15:08:00* Test Item Value Reference Range Interpretation [...] CALCIUM (test code = CA) mg/dL 8.5-10.1 [id number] 12:53:00* Test Item Value Reference Range Interpretation Comments GLUBED (test code = GLUBED) 262 mg/dL 74-106 H Performed by certified drill press operator for metal at [facility] [id number] 08:22:00* Test Item Value Reference Range Interpretation Comments GLUBED (test code = GLUBED) 198 mg/dL 74-106 H Performed by certified drill press operator for metal at [facility] CBC W/AUTO [id number] 06:43:00* Test Item Value Reference Range Interpretation [...] = MDIFF) NO, ONLY SCAN NEEDED DIFFERENTIAL [id number] 06:43:00* Test Item Value Reference Range Interpretation Comments STAIN ACCEPTABILITY (test code = STN ACCEPTABLE) STAIN ACCEPTABLE MORPHOLOGY COMMENT (test code = MOC) NORMAL PLATELET ESTIMATE (test code = PLTEST) ADEQUATE PLATELET MORPHOLOGY (test code = PLTMORPH) NORMAL COMPREHENSIVE METABOLIC [id number] 05:19:00* Test Item Value Reference Range Interpretation [...] due to change in reagent. COMPREHENSIVE METABOLIC [id number] 05:11:00* Test Item Value Reference Range Interpretation [...] code = ALKP) IUnit/L 45-117 CBC W/AUTO [id number] 04:49:00* Test Item Value Reference Range Interpretation [...] = MDIFF) NO, ONLY SCAN NEEDED DIFFERENTIAL [id number] 04:49:00* Test Item Value Reference Range Interpretation Comments STAIN ACCEPTABILITY (test code = STN ACCEPTABLE) CABOT RINGS (test code = CAB) MORPHOLOGY COMMENT (test code = MOC) PLATELET ESTIMATE (test code = PLTEST) PLATELET MORPHOLOGY (test code = PLTMORPH) CBC W/AUTO [id number] 04:49:00* Test Item Value Reference Range Interpretation [...] = MDIFF) NO, ONLY SCAN NEEDED DIFFERENTIAL [id number] 04:49:00* Test Item Value Reference Range Interpretation Comments STAIN ACCEPTABILITY (test code = STN ACCEPTABLE) CABOT RINGS (test code = CAB) MORPHOLOGY COMMENT (test code = MOC) PLATELET ESTIMATE (test code = PLTEST) PLATELET MORPHOLOGY (test code = PLTMORPH) CBC W/AUTO [id number] 04:49:00* Test Item Value Reference Range Interpretation [...] = MDIFF) NO, ONLY SCAN NEEDED DIFFERENTIAL [id number] 04:49:00* Test Item Value Reference Range Interpretation Comments STAIN ACCEPTABILITY (test code = STN ACCEPTABLE) MORPHOLOGY COMMENT (test code = MOC) PLATELET ESTIMATE (test code = PLTEST) PLATELET MORPHOLOGY (test code = PLTMORPH) CBC W/AUTO [id number] 04:49:00* Test Item Value Reference Range Interpretation [...] = MDIFF) NO, ONLY SCAN NEEDED DIFFERENTIAL [id number] 04:49:00* Test Item Value Reference Range Interpretation Comments STAIN ACCEPTABILITY (test code = STN ACCEPTABLE) CABOT RINGS (test code = CAB) MORPHOLOGY COMMENT (test code = MOC) PLATELET ESTIMATE (test code = PLTEST) PLATELET MORPHOLOGY (test code = PLTMORPH) [id number] 21:00:00* Test Item Value Reference Range Interpretation Comments GLUBED (test code = GLUBED) 245 mg/dL 74-106 H Performed by certified drill press operator for metal at [facility] [id number] 17:03:00* Test Item Value Reference Range Interpretation Comments GLUBED (test code = GLUBED) 110 mg/dL 74-106 H Performed by certified drill press operator for metal at [facility] [id number] 13:56:00* Test Item Value Reference Range Interpretation Comments MAGNESIUM (test code = MAG) 2.4 mg/dL 1.8-2.4 N [id number] 11:32:00* Test Item Value Reference Range Interpretation Comments GLUBED (test code = GLUBED) 327 mg/dL 74-106 H Performed by certified drill press operator for metal at [facility] [id number] 07:46:00* Test Item Value Reference Range Interpretation Comments GLUBED (test code = GLUBED) 294 mg/dL 74-106 H Performed by certified drill press operator for metal at [facility] COMPREHENSIVE METABOLIC [id number] 05:18:00* Test Item Value Reference Range Interpretation [...] result is a direct measurement.========= THYROID STIMULATING [id number] 05:18:00* Test Item Value Reference Range Interpretation Comments THYROID STIMULATING HORMONE (test code = TSH) 2.610 uIU/mL 0.36-3.7 4 N TSH REFERENCE RANGES: EUTHYROID: 0.35 - 4.3 mIU/mL HYPO : > 5.5 mIU/mL HYPER : < 0.35 mIU/mL [id number] 05:18:00* Test Item Value Reference Range Interpretation Comments GLYCOSYLATED HEMOGLOBIN (HA1C) (test code = GLYHGB) 9.0 % HbA1 4. 8-6.0 H ESTIMATED AVERAGE GLUCOSE (test code = EAG) 212 MG/DL CBC W/AUTO [id number] 04:33:00* Test Item Value Reference Range Interpretation [...] code = BA#) K/mm3 0.0-0.2 CBC W/AUTO [id number] 04:33:00* Test Item Value Reference Range Interpretation [...] code = NRBC#) 0.00 K/mm3 0.0-0.1 N [id number] 20:34:00* Test Item Value Reference Range Interpretation Comments GLUBED (test code = GLUBED) 106 mg/dL 74-106 N Performed by certified drill press operator for metal at [facility] [id number] 16:44:00* Test Item Value Reference Range Interpretation Comments GLUBED (test code = GLUBED) 290 mg/dL 74-106 H Performed by certified drill press operator for metal at [facility] [id number] 16:44:00* Test Item Value Reference Range Interpretation Comments GLUBED (test code = GLUBED) 276 mg/dL 74-106 H Performed by certified drill press operator for metal at [facility] T4 [id number] 16:31:00* Test Item Value Reference Range Interpretation Comments T4 FREE (test code = T4F) 1.06 ng/dL 0.76-1.46 N THYROID STIMULATING [id number] 16:31:00* Test Item Value Reference Range Interpretation Comments THYROID STIMULATING HORMONE (test code = TSH) 0.871 uIU/mL 0.36-3.7 4 N TSH REFERENCE RANGES: EUTHYROID: 0.35 - 4.3 mIU/mL HYPO : > 5.5 mIU/mL HYPER : < 0.35 mIU/mL [id number] 16:30:00* Test Item Value Reference Range Interpretation Comments GLYCOSYLATED HEMOGLOBIN (HA1C) (test code = GLYHGB) 9.8 % HbA1 4. 8-6.0 H ESTIMATED AVERAGE GLUCOSE (test code = EAG) 235 MG/DL [id number] 12:28:00* Test Item Value Reference Range Interpretation Comments GLUBED (test code = GLUBED) 282 mg/dL 74-106 H Performed by certified drill press operator for metal at [facility] [id number] 11:21:00* Test Item Value Reference Range Interpretation Comments MAGNESIUM (test code = MAG) 2.3 mg/dL 1.8-2.4 N [id number] 10:04:00* Test Item Value Reference Range Interpretation Comments TROPONIN-I (test code = TROPI) <0.015 ng/mL 0-0.045 N COMMENTS TO LINE COOK: COLLECT 3 HOURS AFTER PREVIOUS [id number] 04:34:00* Test Item Value Reference Range Interpretation Comments TROPONIN-I (test code = TROPI) <0.015 ng/mL 0-0.045 N COMMENTS TO LINE COOK: COLLECT 3 HOURS AFTER PREVIOUS [id number] 04:12:00* Test Item Value Reference Range Interpretation Comments GLUBED (test code = GLUBED) 257 mg/dL 74-106 H Performed by certified drill press operator for metal at [facility] - CT CHEST W/O [id number] 23:57:00 Name: KALYANI TALAVERA [facility] : 1955 Age/S: 64 / F [address] Unit #: [id number] Loc: [place] [address] Phys: Leonora Goins MD Acct: [id number] Dis Date: Status: REG ER PHONE #: [phone] Exam Date: 05/17/2019 2320 FAX #: [phone] Reason: shortneess of breath, weakness EXAMS: CPT CODE: [id number] CT CHEST W/O CONTRAST 12099 LOCATION: Q15 HISTORY: 64-year-old female who presents [...] seen with central vascula r congestion. at 8601 Reported and signed by: Kizzy Malcolm M.D. PAGE 1 Signed Report (CONTINUED) Name: KALYANI TALAVERA [facility] : 1955 Age/S: 64 / F [address] Unit #: [id number] Loc: [place] [address] Phys: Leonora Goins MD Acct: [id number] Dis Date: S tatus: REG ER PHONE #: [phone] Exam Da te: 05/17/2019 2320 FAX #: [phone] Reason: shortn eess of breath, weakness EXAMS: CPT CODE: [id number] CT CHEST W/O CONTRAST 05097 <Continued> CC: Lucille Nur MD; Leonora Goins MD Technologist:JORDEN MERCADO, RT CTDI: DLP: Trnscb Date/Time: 05/17/2019 (2357) [email or web address] Orig Print D/T: S: 05/18/2019 (0000) PAGE 2 Signed Report [id number] 22:38:00* Test Item Value Reference Range Interpretation Comments GLUBED (test code = GLUBED) 373 mg/dL 74-106 H Performed by certified drill press operator for metal at [facility] [id number] 22:38:00* Test Item Value Reference Range Interpretation Comments GLUBED (test code = GLUBED) 422 mg/dL 74-106 H Performed by certified drill press operator for metal at [facility] - CT HEAD/BRAIN W/O [id number] 22:09:00 Name: KALYANI TALAVERA [facility] : 1955 Age/S: 64 / F [address] Unit #: [id number] Loc: [place] [address] Phys: Leonora Goins MD Acct: [id number] Dis Date: Status: REG ER PHONE #: [phone] Exam Date: 05/17/2019 211 FAX #: [phone] Reason: weakness EXAMS: CPT CODE: [id number] CT HEAD/BRAIN W/O CONT 96698 HISTORY: weakness TECHNIQUE: Noncontrast 2.5 mm axial [...] process or change from prior exam. Location: [facility] at 2209 Reported and signed by: Dago Goodson MD CC: Chris Nur MD; Leonora Goins MD Technologist:RT SOTO(R) CT CTDI: DLP: Trnscb Date/Time: 05/17/2019 (2208) [email or web address] Orig Print D/T: S: 05/17/2019 (1132) PAGE 1 Signed Report BASIC METABOLIC [id number] 22:03:00* Test Item Value Reference Range Interpretation [...] CA) 8.6 mg/dL 8.5-10.1 N HEPATIC FUNCTION [id number] 22:03:00* Test Item Value Reference Range Interpretation [...] reference range due to change in reagent. [id number] 22:03:00* Test Item Value Reference Range Interpretation Comments LIPASE (test code = LIP) 105 U/L 73.0-393.0 N [id number] 22:03:00* Test Item Value Reference Range Interpretation Comments TROPONIN-I (test code = TROPI) <0.015 ng/mL 0-0.045 N - XR CHEST 1 [id number] 22:01:00 FAX: Amish Nur, [place]: St: [facility] FAX: Leonora Norton [phone] Name: KALYANI TALAVERA [facility] : 1955 Age/S: 64/F [address] [facility] Unit #: [id number] Loc: [place] [address] Phys: Leonora Goins MD Acct: [id number] Dis Date: Status: REG ER PHONE #: [phone] Exam Date: 05/17/2019 2110 FAX #: [phone] Reason: WEAKNESS EXAMS: CPT CODE: [id number] XR CHEST 1 V 02516 REASON FOR EXAM: WEAKNESS Exam Order Date: [...] be secondary to diminished lung volumes. Location: [facility] at 2201 Reported and signed by: Daog Goodson MD CC: Lucille Land MD; Leonora Goins MD Technologist: EZEQUIEL CHAPA RT Trnscrd Date/Time/By: 05/17/2019 (2200) : By: [email or web address] Orig Print D/T: S: 05/17/2019 (1) PAGE 1 Signed Report URINALYSIS [id number] 21:54:00* Test Item Value Reference Range Interpretation [...] #/HPF NONE Urine Source? Clean CatchBASIC METABOLIC [id number] 21:42:00* Test Item Value Reference Range Interpretation [...] code = CA) mg/dL 8.5-10.1 HEPATIC FUNCTION [id number] 21:42:00* Test Item Value Reference Range Interpretation [...] TOTAL (test code = ALKP) IUnit/L 45-117 [id number] 21:42:00* Test Item Value Reference Range Interpretation Comments LIPASE (test code = LIP) U/L 73.0-393.0 [id number] 21:42:00* Test Item Value Reference Range Interpretation Comments TROPONIN-I (test code = TROPI) ng/mL 0-0.045 CBC W/O [id number] 21:33:00* Test Item Value Reference Range Interpretation [...] code = MPV) 10.9 fL 6.7-11.0 N [id number] 02:14:00* Test Item Value Reference Range Interpretation Comments GLUBED (test code = GLUBED) 359 mg/dL 74-106 H Performed by certified drill press operator for metal at [facility] [id number] 01:04:00* Test Item Value Reference Range Interpretation Comments GLUBED (test code = GLUBED) 484 mg/dL 74-106 H Performed by certified drill press operator for metal at [facility] URINALYSIS [id number] 00:11:00* Test Item Value Reference Range Interpretation [...] per HPF NONE Urine Source? Clean CatchURINALYSIS [id number] 00:07:00* Test Item Value Reference Range Interpretation [...] HPF NONE Urine Source? Clean CatchBASIC METABOLIC [id number] 23:16:00* Test Item Value Reference Range Interpretation [...] CA) 8.6 mg/dL 8.5-10.1 N HEPATIC FUNCTION [id number] 23:16:00* Test Item Value Reference Range Interpretation [...] reference range due to change in reagent. [id number] 23:16:00* Test Item Value Reference Range Interpretation Comments TROPONIN-I (test code = TROPI) <0.015 ng/mL 0-0.045 N BASIC METABOLIC [id number] 22:52:00* Test Item Value Reference Range Interpretation [...] code = CA) mg/dL 8.5-10.1 HEPATIC FUNCTION [id number] 22:52:00* Test Item Value Reference Range Interpretation [...] TOTAL (test code = ALKP) IUnit/L 45-117 [id number] 22:52:00* Test Item Value Reference Range Interpretation Comments TROPONIN-I (test code = TROPI) ng/mL 0-0.045 - CT HEAD/BRAIN W/O [id number] 22:44:00 Name: KALYANI TALAVERA [facility] : 1955 Age/S: 64 / F [address] Unit #: [id number] Loc: [place] [address] Phys: Vince Jones DO Acct: [id number] Dis Date: Status: REG ER PHONE #: [phone] Exam Date: 04/30/20192231 FAX #: [phone] Reason: headache/blurry vision EXAMS: CPT CODE: [id number] CT HEAD/BRAIN W/O CONT 39909 HISTORY: headache/blurry vision TECHNIQUE: Noncontrast 2.5 mm [...] Lucille Nur MD; Vince Jacobs DO Technologist:Arianna CLEMENTS(R); KIZZY Chavez CTDI: DL P: Trnscb Date/Time: 04/30/2019 (7111) [email or web address] O rig Print D/T: S: 04/30/2019 (8892) PAGE 1 Signed Re port CBC W/AUTO [id number] 22:43:00* Test Item Value Reference Range Interpretation [...] DIFF REQUIRED (test code = MDIFF) NO [id number] 22:16:00* Test Item Value Reference Range Interpretation Comments GLUBED (test code = GLUBED) > 500 mg/dL 74-106 HH Performed by certified drill press [facility] KNEE RIGHT THREE [id number] 04:11:00 [facility] [address] [place] [address] Patient Name: KALYANI TALAVERA MR #: [id number] : 1955 Age/Sex: 64/F Req #: [id number] Adm Physician: Ordered by: JACQUES JANE MD Report #: [id number] Location: ER Room/Bed: Procedure: 1005-00 06 DX/KNEE RIGHT THREE VIEWS Exam Date: [...] 04/27/19411 COPY TO: JACQUES JANE MD Bedside Pluogcw6034-74-11 04:02:00* Test Item Value Reference Range Interpretation Comments Bedside Glucose (test code = 34586-3) 387 70-120 H Meter ID: [id number] [facility] Glucose 2019-04-18 04:02:00* Test Item Value Reference Range Interpretation Comments Bedside Glucose (test code = 12390-0) 387 70-120 H Meter ID: [id number] [facility] Glucose 2019-03-15 03:09:00* Test Item Value Reference Range Interpretation Comments Bedside Glucose (test code = 51431-0) 272 70-120 H Meter ID: [id number] [facility] Glucose 2019-03-15 03:09:00* Test Item Value Reference Range Interpretation Comments Bedside Glucose (test code = 09703-2) 272 70-120 H Meter ID: [id number] [facility]2019-03-15 03:03:00 [place] [address] Patient Name: KALYANI TALAVERA MR #: [id number] : 1955 Age/Sex: 64/F Req #: [id number] Adm Physician: Ordered by: JACQUES JANE MD Report #: [id number] Location: ER Room/Bed: Procedure: 06 DX/CHEST SINGLE [...] 03/15/19313 COPY TO: JACQUES JANE MD Sodium [id number] 02:29:00* Test Item Value Reference Range Interpretation Comments Sodium Level (test code = 2951-2) 134 136-145 L [facility] Xvefb3135-84-43 02:29:00* Test Item Value Reference Range Interpretation Comments Potassium Level (test code = 2823-3) 4.2 3.5-5.1 [facility] CenterChloride Ahiqu0512-73-74 02:29:00* Test Item Value Reference Range Interpretation Comments Chloride Level (test code = 2075-0) 99 98-107 [facility] CenterCarbon Dioxide Elzrd7025-69-75 02:29:00* Test Item Value Reference Range Interpretation Comments Carbon Dioxide Level (test code = 2028-9) 25 22-29 [facility] CenterAnion Krt8468-45-93 02:29:00* Test Item Value Reference Range Interpretation Comments Anion Gap (test code = 29444-6) 14.2 8-16 [facility] CenterBlood Urea Hfkxkxlt1976-56-48 02:29:00* Test Item Value Reference Range Interpretation Comments Blood Urea Nitrogen (test code = 3094-0) 26 7-26 [facility] CenterCreatinine2019-08-23 02:29:00* Test Item Value Reference Range Interpretation Comments Creatinine (test code = 2160-0) 1.11 0.57-1.11 [facility] CenterBUN/Creatinine Euydp2013-70-04 02:29:00* Test Item Value Reference Range Interpretation Comments BUN/Creatinine Ratio (test code = 3097-3) 01-15 [facility] CenterEstimat Glomerular Filtration Rate 2019-03-15 02:29:00* Test Item Value Reference Range Interpretation Comments Estimat Glomerular Filtration Rate (test code = 712755583) 50 >60 L Ranges were taken from the National Kidney Disease Education Program and the [facility] [employer] literature.Reference ranges:60 or greater: Atbeps65-64 ( for 3 consecutive months): Chronic kidney disease 15 or less: Kidney failureM[facility] Regional Medical CenterGlucose Ogled4360-13-51 02:29:00* Test Item Value Reference Range Interpretation Comments Glucose Level (test code = DDN2728) 553 74118 Results repeated and called to THELMA DONALDSON RN at 0229 on 03/15/19 by Francoise Proctor. Read back and verified.[facility] CenterCalcium Whfer1605-41-35 02:29:00* Test Item Value Reference Range Interpretation Comments Calcium Level (test code = 85762-9) 8.8 8.4-10.2 [facility] Centerodium Ghzpf3730-96-63 02:29:00* Test Item Value Reference Range Interpretation Comments Sodium Level (test code = 2951-2) 134 136-145 L [facility] CenterPotassium Ljgkw4514-32-05 02:29:00* Test Item Value Reference Range Interpretation Comments Potassium Level (test code = 2823-3) 4.2 3.5-5.1 [facility] CenterChloride Nnruy8522-14-72 02:29:00* Test Item Value Reference Range Interpretation Comments Chloride Level (test code = 2075-0) 99 98-107 [facility] CenterCarbon Dioxide Kpkur8159-15-45 02:29:00* Test Item Value Reference Range Interpretation Comments Carbon Dioxide Level (test code = 2028-9) 25 22-29 [facility] CenterAnion Czd2344-37-85 02:29:00* Test Item Value Reference Range Interpretation Comments Anion Gap (test code = 63338-2) 14.2 8-16 [facility] CenterBlood Urea Qjzbhxap4774-46-13 02:29:00* Test Item Value Reference Range Interpretation Comments Blood Urea Nitrogen (test code = 3094-0) 26 7- [facility] CenterCreatinine2019-08-23 02:29:00* Test Item Value Reference Range Interpretation Comments Creatinine (test code = 2160-0) 1.11 0.57-1.11 [facility] CenterBUN/Creatinine Nlahe6430-82-18 02:29:00* Test Item Value Reference Range Interpretation Comments BUN/Creatinine Ratio (test code = 3097-3) 23 6- [facility] CenterEstimat Glomerular Filtration Rate 2019-03-15 02:29:00* Test Item Value Reference Range Interpretation Comments Estimat Glomerular Filtration Rate (test code = 153430080) 50 >60 L Ranges were taken from the National Kidney Disease Education Program and the [facility] [employer] literature.Reference ranges:60 or greater: Cxjsjm72-28 ( for 3 consecutive months): Chronic kidney disease 15 or less: Kidney failureMission Regional Medical CenterGlucose Keicj3763-48-96 02:29:00* Test Item Value Reference Range Interpretation Comments Glucose Level (test code = FVM2972) 559 74-118 Results repeated and called to THELMA DONALDSON RN at 0229 on 03/15/19 by Francoise Proctor. Read back and verified.[facility] CenterCalcium Iqfcn8595-77-70 02:29:00* Test Item Value Reference Range Interpretation Comments Calcium Level (test code = 73645-5) 8.8 8.4-10.2 [facility] Centerodium Usauf4065-69-82 02:29:00* Test Item Value Reference Range Interpretation Comments Sodium Level (test code = 2951-2) 134 136-145 L [facility] CenterPotassium Dqrxr1601-19-12 02:29:00* Test Item Value Reference Range Interpretation Comments Potassium Level (test code = 2823-3) 4.2 3.5-5.1 [facility] CenterChloride Akmkm2158-47-16 02:29:00* Test Item Value Reference Range Interpretation Comments Chloride Level (test code = 2075-0) 99 98-107 [facility] CenterCarbon Dioxide Nmvtc5048-70-36 02:29:00* Test Item Value Reference Range Interpretation Comments Carbon Dioxide Level (test code = 2028-9) 25 22-29 [facility] CenterAnion Dgc1645-69-35 02:29:00* Test Item Value Reference Range Interpretation Comments Anion Gap (test code = 91490-2) 14.2 8-16 [facility] CenterBlood Urea Hteoqito4671-46-02 02:29:00* Test Item Value Reference Range Interpretation Comments Blood Urea Nitrogen (test code = 3094-0) 26 7-26 [facility] CenterCreatinine2019-08-23 02:29:00* Test Item Value Reference Range Interpretation Comments Creatinine (test code = 2160-0) 1.11 0.57-1.11 [facility] CenterBUN/Creatinine Kbsdb8475-80-97 02:29:00* Test Item Value Reference Range Interpretation Comments BUN/Creatinine Ratio (test code = 3097-3) 23 6-25 [facility] CenterEstimat Glomerular Filtration Rate 2019-03-15 02:29:00* Test Item Value Reference Range Interpretation Comments Estimat Glomerular Filtration Rate (test code = 638120069) 50 >60 L Ranges were taken from the National Kidney Disease Education Program and the [facility] [employer] literature.Reference ranges:60 or greater: Qevvao28-80 ( for 3 consecutive months): Chronic kidney disease 15 or less: Kidney failureMission Regional Medical CenterGlucose Gyupc0523-57-59 02:29:00* Test Item Value Reference Range Interpretation Comments Glucose Level (test code = YXU5781) 554 74-118 Results repeated and called to THELMA DONALDSON RN at 0229 on 03/15/19 by Francoise Proctor. Read back and verified.[facility] CenterCalcium Thvrw2384-15-56 02:29:00* Test Item Value Reference Range Interpretation Comments Calcium Level (test code = 87837-1) 8.8 8.4-10.2 [facility] Centerodium Ufwjq0487-92-23 02:29:00* Test Item Value Reference Range Interpretation Comments Sodium Level (test code = 2951-2) 134 136-145 L [facility] CenterPotassium Atigr6197-87-23 02:29:00* Test Item Value Reference Range Interpretation Comments Potassium Level (test code = 2823-3) 4.2 3.5-5.1 [facility] CenterChloride Yzukc7654-14-02 02:29:00* Test Item Value Reference Range Interpretation Comments Chloride Level (test code = 2075-0) 99 98-107 [facility] CenterCarbon Dioxide Uqkyz2005-25-97 02:29:00* Test Item Value Reference Range Interpretation Comments Carbon Dioxide Level (test code = 2028-9) 25 22-29 [facility] CenterAnion Uvk9728-33-00 02:29:00* Test Item Value Reference Range Interpretation Comments Anion Gap (test code = 38641-7) 14.2 8-16 [facility] CenterBlood Urea Bnjoaucx1284-60-42 02:29:00* Test Item Value Reference Range Interpretation Comments Blood Urea Nitrogen (test code = 3094-0) 26 7-26 [facility] CenterCreatinine2019-08-23 02:29:00* Test Item Value Reference Range Interpretation Comments Creatinine (test code = 2160-0) 1.11 0.57-1.11 [facility] CenterBUN/Creatinine Rtdnr3637-86-20 02:29:00* Test Item Value Reference Range Interpretation Comments BUN/Creatinine Ratio (test code = 3097-3) 23 6-25 [facility] CenterEstimat Glomerular Filtration Rate 2019-03-15 02:29:00* Test Item Value Reference Range Interpretation Comments Estimat Glomerular Filtration Rate (test code = 834253880) 50 >60 L Ranges were taken from the National Kidney Disease Education Program and the [facility] Kidney Foundation literature.Reference ranges:60 or greater: Zbbxrn79-75 ( for 3 consecutive months): Chronic kidney disease 15 or less: Kidney failureM[facility] Medical CenterGlucose Hubte0075-63-82 02:29:00* Test Item Value Reference Range Interpretation Comments Glucose Level (test code = XBR1818) 085 74118 HH Results repeated and called to THELMA DONALDSON RN at 0229 on 03/15/19 by Francoise Proctor. Read back and verified.[facility] CenterCalcium Dktul1422-26-31 02:29:00* Test Item Value Reference Range Interpretation Comments Calcium Level (test code = 40214-2) 8.8 8.4-10.2 [facility] CenterWhite Blood Kykif9903-11-97 02:16:00* Test Item Value Reference Range Interpretation Comments White Blood Count (test code = 6690-2) 5.52 4.8-10.8 [facility] CenterRed Blood Uhtte5597-80-53 02:16:00* Test Item Value Reference Range Interpretation Comments Red Blood Count (test code = 789-8) 4.47 3.6-5.1 [facility] CenterHemoglobin2019-08-23 02:16:00* Test Item Value Reference Range Interpretation Comments Hemoglobin (test code = 09208-2) 11.3 12.0-16.0 L [facility] CenterHematocrit2019-08-23 02:16:00* Test Item Value Reference Range Interpretation Comments Hematocrit (test code = 4544-3) 38.1 34.2-44.1 [facility] CenterMean Corpuscular Zsyrrs3207-74-82 02:16:00* Test Item Value Reference Range Interpretation Comments Mean Corpuscular Volume (test code = 787-2) 85.2 81-99 [facility] CenterMean Corpuscular Ewhxvkqisz7902-73-37 02:16:00* Test Item Value Reference Range Interpretation Comments Mean Corpuscular Hemoglobin (test code = 785-6) 25.3 28-32 L [facility] CenterMean Corpuscular Hemoglobin Concent 2019-03-15 02:16:00* Test Item Value Reference Range Interpretation Comments Mean Corpuscular Hemoglobin Concent (test code = 786-4) 29.7 31-35 L [facility] CenterRed Cell Distribution Vrqng5226-10-85 02:16:00* Test Item Value Reference Range Interpretation Comments Red Cell Distribution Width (test code = 82870-7) 16.0 11.7 -14.4 H [facility] CenterPlatelet Fsrto0759-24-09 02:16:00* Test Item Value Reference Range Interpretation Comments Platelet Count (test code = 777-3) 175 140-360 [facility] CenterNeutrophils (%) (Auto)2019-03-15 02:16:00 * Test Item Value Reference Range Interpretation Comments Neutrophils (%) (Auto) (test code = 34783-6) 71.8 38.7-80.0 [facility] CenterLymphocytes (%) (Auto)2019-03-15 02:16:00 * Test Item Value Reference Range Interpretation Comments Lymphocytes (%) (Auto) (test code = 736-9) 20.1 18.0-39.1 [facility] CenterMonocytes (%) (Auto)2019-03-15 02:16:00* Test Item Value Reference Range Interpretation Comments Monocytes (%) (Auto) (test code = 5905-5) 3.8 4.4-11.3 L [facility] CenterEosinophils (%) (Auto)2019-03-15 02:16:00 * Test Item Value Reference Range Interpretation Comments Eosinophils (%) (Auto) (test code = 713-8) 1.8 0.0-6.0 [facility] CenterBasophils (%) (Auto)2019-03-15 02:16:00* Test Item Value Reference Range Interpretation Comments Basophils (%) (Auto) (test code = 706-2) 0.9 0.0-1.0 [facility] CenterIM GRANULOCYTES %2019-03-15 02:16:00* Test Item Value Reference Range Interpretation Comments IM GRANULOCYTES % (test code = IM GRANULOCYTES %) 1.6 0.0- 1.0 H [facility] CenterNeutrophils # (Auto)2019-03-15 02:16:00* Test Item Value Reference Range Interpretation Comments Neutrophils # (Auto) (test code = 751-8) 4.0 2.1-6.9 [facility] CenterLymphocytes # (Auto)2019-03-15 02:16:00* Test Item Value Reference Range Interpretation Comments Lymphocytes # (Auto) (test code = 95017-0) 1.1 1.0-3.2 [facility] CenterMonocytes # (Auto)2019-03-15 02:16:00* Test Item Value Reference Range Interpretation Comments Monocytes # (Auto) (test code = 742-7) 0.2 0.2-0.8 [facility] CenterEosinophils # (Auto)2019-03-15 02:16:00* Test Item Value Reference Range Interpretation Comments Eosinophils # (Auto) (test code = 711-2) 0.1 0.0-0.4 [facility] CenterBasophils # (Auto)2019-03-15 02:16:00* Test Item Value Reference Range Interpretation Comments Basophils # (Auto) (test code = 704-7) 0.1 0.0-0.1 [facility] CenterAbsolute Immature Granulocyte (auto 2019-03-15 02:16:00* Test Item Value Reference Range Interpretation Comments Absolute Immature Granulocyte (auto (joseph t code = Absolute Immature Granulocyte (auto) 0.09 0-0.1 [facility] CenterWhite Blood Nsouh6471-36-78 02:16:00* Test Item Value Reference Range Interpretation Comments White Blood Count (test code = 6690-2) 5.52 4.8-10.8 [facility] CenterRed Blood Ubmqj1928-71-11 02:16:00* Test Item Value Reference Range Interpretation Comments Red Blood Count (test code = 789-8) 4.47 3.6-5.1 [facility] CenterHemoglobin2019-08-23 02:16:00* Test Item Value Reference Range Interpretation Comments Hemoglobin (test code = 91157-2) 11.3 12.0-16.0 L [facility] CenterHematocrit2019-08-23 02:16:00* Test Item Value Reference Range Interpretation Comments Hematocrit (test code = 4544-3) 38.1 34.2-44.1 [facility] CenterMean Corpuscular Vgdotl4539-24-90 02:16:00* Test Item Value Reference Range Interpretation Comments Mean Corpuscular Volume (test code = 787-2) 85.2 81-99 [facility] CenterMean Corpuscular Xvefierksg4513-90-23 02:16:00* Test Item Value Reference Range Interpretation Comments Mean Corpuscular Hemoglobin (test code = 785-6) 25.3 28-32 L [facility] CenterMean Corpuscular Hemoglobin Concent 2019-03-15 02:16:00* Test Item Value Reference Range Interpretation Comments Mean Corpuscular Hemoglobin Concent (test code = 786-4) 29.7 31-35 L [facility] CenterRed Cell Distribution Pvhvh0099-21-35 02:16:00* Test Item Value Reference Range Interpretation Comments Red Cell Distribution Width (test code = 80434-5) 16.0 11.7 -14.4 H [facility] CenterPlatelet Yderx8823-75-49 02:16:00* Test Item Value Reference Range Interpretation Comments Platelet Count (test code = 777-3) 175 140-360 [facility] CenterNeutrophils (%) (Auto)2019-03-15 02:16:00 * Test Item Value Reference Range Interpretation Comments Neutrophils (%) (Auto) (test code = 13765-2) 71.8 38.7-80.0 [facility] CenterLymphocytes (%) (Auto)2019-03-15 02:16:00 * Test Item Value Reference Range Interpretation Comments Lymphocytes (%) (Auto) (test code = 736-9) 20.1 18.0-39.1 [facility] CenterMonocytes (%) (Auto)2019-03-15 02:16:00* Test Item Value Reference Range Interpretation Comments Monocytes (%) (Auto) (test code = 5905-5) 3.8 4.4-11.3 L [facility] CenterEosinophils (%) (Auto)2019-03-15 02:16:00 * Test Item Value Reference Range Interpretation Comments Eosinophils (%) (Auto) (test code = 713-8) 1.8 0.0-6.0 [facility] CenterBasophils (%) (Auto)2019-03-15 02:16:00* Test Item Value Reference Range Interpretation Comments Basophils (%) (Auto) (test code = 706-2) 0.9 0.0-1.0 [facility] CenterIM GRANULOCYTES %2019-03-15 02:16:00* Test Item Value Reference Range Interpretation Comments IM GRANULOCYTES % (test code = IM GRANULOCYTES %) 1.6 0.0- 1.0 H [facility] CenterNeutrophils # (Auto)2019-03-15 02:16:00* Test Item Value Reference Range Interpretation Comments Neutrophils # (Auto) (test code = 751-8) 4.0 2.1-6.9 [facility] CenterLymphocytes # (Auto)2019-03-15 02:16:00* Test Item Value Reference Range Interpretation Comments Lymphocytes # (Auto) (test code = 05619-1) 1.1 1.0-3.2 [facility] CenterMonocytes # (Auto)2019-03-15 02:16:00* Test Item Value Reference Range Interpretation Comments Monocytes # (Auto) (test code = 742-7) 0.2 0.2-0.8 [facility] CenterEosinophils # (Auto)2019-03-15 02:16:00* Test Item Value Reference Range Interpretation Comments Eosinophils # (Auto) (test code = 711-2) 0.1 0.0-0.4 [facility] CenterBasophils # (Auto)2019-03-15 02:16:00* Test Item Value Reference Range Interpretation Comments Basophils # (Auto) (test code = 704-7) 0.1 0.0-0.1 [facility] CenterAbsolute Immature Granulocyte (auto 2019-03-15 02:16:00* Test Item Value Reference Range Interpretation Comments Absolute Immature Granulocyte (auto (joseph t code = Absolute Immature Granulocyte (auto) 0.09 0-0.1 [facility] CenterWhite Blood Nbskx0228-57-40 02:16:00* Test Item Value Reference Range Interpretation Comments White Blood Count (test code = 6690-2) 5.52 4.8-10.8 [facility] CenterRed Blood Wlibh0320-73-23 02:16:00* Test Item Value Reference Range Interpretation Comments Red Blood Count (test code = 789-8) 4.47 3.6-5.1 [facility] CenterHemoglobin2019-08-23 02:16:00* Test Item Value Reference Range Interpretation Comments Hemoglobin (test code = 11439-1) 11.3 12.0-16.0 L [facility] CenterHematocrit2019-08-23 02:16:00* Test Item Value Reference Range Interpretation Comments Hematocrit (test code = 4544-3) 38.1 34.2-44.1 [facility] CenterMean Corpuscular Kudaqn2702-30-92 02:16:00* Test Item Value Reference Range Interpretation Comments Mean Corpuscular Volume (test code = 787-2) 85.2 81-99 [facility] CenterMean Corpuscular Geuoxvmceq1827-52-53 02:16:00* Test Item Value Reference Range Interpretation Comments Mean Corpuscular Hemoglobin (test code = 785-6) 25.3 28-32 L [facility] CenterMean Corpuscular Hemoglobin Concent 2019-03-15 02:16:00* Test Item Value Reference Range Interpretation Comments Mean Corpuscular Hemoglobin Concent (test code = 786-4) 29.7 31-35 L [facility] CenterRed Cell Distribution Lzzqb2684-45-80 02:16:00* Test Item Value Reference Range Interpretation Comments Red Cell Distribution Width (test code = 98222-7) 16.0 11.7 -14.4 H [facility] CenterPlatelet Lnxdz8157-69-76 02:16:00* Test Item Value Reference Range Interpretation Comments Platelet Count (test code = 777-3) 175 140-360 [facility] CenterNeutrophils (%) (Auto)2019-03-15 02:16:00 * Test Item Value Reference Range Interpretation Comments Neutrophils (%) (Auto) (test code = 36708-4) 71.8 38.7-80.0 [facility] CenterLymphocytes (%) (Auto)2019-03-15 02:16:00 * Test Item Value Reference Range Interpretation Comments Lymphocytes (%) (Auto) (test code = 736-9) 20.1 18.0-39.1 [facility] CenterMonocytes (%) (Auto)2019-03-15 02:16:00* Test Item Value Reference Range Interpretation Comments Monocytes (%) (Auto) (test code = 5905-5) 3.8 4.4-11.3 L [facility] CenterEosinophils (%) (Auto)2019-03-15 02:16:00 * Test Item Value Reference Range Interpretation Comments Eosinophils (%) (Auto) (test code = 713-8) 1.8 0.0-6.0 [facility] CenterBasophils (%) (Auto)2019-03-15 02:16:00* Test Item Value Reference Range Interpretation Comments Basophils (%) (Auto) (test code = 706-2) 0.9 0.0-1.0 [facility] CenterIM GRANULOCYTES %2019-03-15 02:16:00* Test Item Value Reference Range Interpretation Comments IM GRANULOCYTES % (test code = IM GRANULOCYTES %) 1.6 0.0- 1.0 H [facility] CenterNeutrophils # (Auto)2019-03-15 02:16:00* Test Item Value Reference Range Interpretation Comments Neutrophils # (Auto) (test code = 751-8) 4.0 2.1-6.9 [facility] CenterLymphocytes # (Auto)2019-03-15 02:16:00* Test Item Value Reference Range Interpretation Comments Lymphocytes # (Auto) (test code = 77547-3) 1.1 1.0-3.2 [facility] CenterMonocytes # (Auto)2019-03-15 02:16:00* Test Item Value Reference Range Interpretation Comments Monocytes # (Auto) (test code = 742-7) 0.2 0.2-0.8 [facility] CenterEosinophils # (Auto)2019-03-15 02:16:00* Test Item Value Reference Range Interpretation Comments Eosinophils # (Auto) (test code = 711-2) 0.1 0.0-0.4 [facility] CenterBasophils # (Auto)2019-03-15 02:16:00* Test Item Value Reference Range Interpretation Comments Basophils # (Auto) (test code = 704-7) 0.1 0.0-0.1 [facility] CenterAbsolute Immature Granulocyte (auto 2019-03-15 02:16:00* Test Item Value Reference Range Interpretation Comments Absolute Immature Granulocyte (auto (joseph t code = Absolute Immature Granulocyte (auto) 0.09 0-0.1 [facility] CenterWhite Blood Mqyyz8090-57-84 02:16:00* Test Item Value Reference Range Interpretation Comments White Blood Count (test code = 6690-2) 5.52 4.8-10.8 [facility] CenterRed Blood Igbak7097-40-77 02:16:00* Test Item Value Reference Range Interpretation Comments Red Blood Count (test code = 789-8) 4.47 3.6-5.1 [facility] CenterHemoglobin2019-08-23 02:16:00* Test Item Value Reference Range Interpretation Comments Hemoglobin (test code = 99905-5) 11.3 12.0-16.0 L [facility] CenterHematocrit2019-08-23 02:16:00* Test Item Value Reference Range Interpretation Comments Hematocrit (test code = 4544-3) 38.1 34.2-44.1 [facility] CenterMean Corpuscular Wrcnym9608-76-24 02:16:00* Test Item Value Reference Range Interpretation Comments Mean Corpuscular Volume (test code = 787-2) 85.2 81-99 [facility] CenterMean Corpuscular Cbaynjrgkx4893-85-27 02:16:00* Test Item Value Reference Range Interpretation Comments Mean Corpuscular Hemoglobin (test code = 785-6) 25.3 28-32 L [facility] CenterMean Corpuscular Hemoglobin Concent 2019-03-15 02:16:00* Test Item Value Reference Range Interpretation Comments Mean Corpuscular Hemoglobin Concent (test code = 786-4) 29.7 31-35 L [facility] CenterRed Cell Distribution Bxnfh8819-79-18 02:16:00* Test Item Value Reference Range Interpretation Comments Red Cell Distribution Width (test code = 10370-9) 16.0 11.7 -14.4 H [facility] CenterPlatelet Petay2197-65-88 02:16:00* Test Item Value Reference Range Interpretation Comments Platelet Count (test code = 777-3) 175 140-360 [facility] CenterNeutrophils (%) (Auto)2019-03-15 02:16:00 * Test Item Value Reference Range Interpretation Comments Neutrophils (%) (Auto) (test code = 68316-3) 71.8 38.7-80.0 [facility] CenterLymphocytes (%) (Auto)2019-03-15 02:16:00 * Test Item Value Reference Range Interpretation Comments Lymphocytes (%) (Auto) (test code = 736-9) 20.1 18.0-39.1 [facility] CenterMonocytes (%) (Auto)2019-03-15 02:16:00* Test Item Value Reference Range Interpretation Comments Monocytes (%) (Auto) (test code = 5905-5) 3.8 4.4-11.3 L [facility] CenterEosinophils (%) (Auto)2019-03-15 02:16:00 * Test Item Value Reference Range Interpretation Comments Eosinophils (%) (Auto) (test code = 713-8) 1.8 0.0-6.0 [facility] CenterBasophils (%) (Auto)2019-03-15 02:16:00* Test Item Value Reference Range Interpretation Comments Basophils (%) (Auto) (test code = 706-2) 0.9 0.0-1.0 [facility] CenterIM GRANULOCYTES %2019-03-15 02:16:00* Test Item Value Reference Range Interpretation Comments IM GRANULOCYTES % (test code = IM GRANULOCYTES %) 1.6 0.0- 1.0 H [facility] CenterNeutrophils # (Auto)2019-03-15 02:16:00* Test Item Value Reference Range Interpretation Comments Neutrophils # (Auto) (test code = 751-8) 4.0 2.1-6.9 [facility] CenterLymphocytes # (Auto)2019-03-15 02:16:00* Test Item Value Reference Range Interpretation Comments Lymphocytes # (Auto) (test code = 26276-7) 1.1 1.0-3.2 [facility] CenterMonocytes # (Auto)2019-03-15 02:16:00* Test Item Value Reference Range Interpretation Comments Monocytes # (Auto) (test code = 742-7) 0.2 0.2-0.8 [facility] CenterEosinophils # (Auto)2019-03-15 02:16:00* Test Item Value Reference Range Interpretation Comments Eosinophils # (Auto) (test code = 711-2) 0.1 0.0-0.4 [facility] CenterBasophils # (Auto)2019-03-15 02:16:00* Test Item Value Reference Range Interpretation Comments Basophils # (Auto) (test code = 704-7) 0.1 0.0-0.1 [facility] CenterAbsolute Immature Granulocyte (auto 2019-03-15 02:16:00* Test Item Value Reference Range Interpretation Comments Absolute Immature Granulocyte (auto (joseph t code = Absolute Immature Granulocyte (auto) 0.09 0-0.1 [facility] CenterBedside Fhdigfe0556-94-82 05:15:00* Test Item Value Reference Range Interpretation Comments Bedside Glucose (test code = 49006-4) 329 70-120 H Meter ID: [id number] [facility] 2019-02-24 01:23:00 [place] [address] Patient Name: KALYANI TALAVERA MR #: [id number] : 1955 Age/Sex: 63/F Req #: [id number] Adm Physician: Ordered by: JACQUES JANE MD Report #: [id number] Location: ER Room/Bed: Procedure: 43 DX/FOREARM LEFT [...] 02/24/19123 COPY TO: JACQUES JANE MD Sodium Ijcnn1827-55-39 00:35:00* Test Item Value Reference Range Interpretation Comments Sodium Level (test code = 2951-2) 135 136-145 L [facility] CenterPotassium Eijdq5234-72-31 00:35:00* Test Item Value Reference Range Interpretation Comments Potassium Level (test code = 2823-3) 4.4 3.5-5.1 [facility] CenterChloride Dvpwh9141-36-66 00:35:00* Test Item Value Reference Range Interpretation Comments Chloride Level (test code = 2075-0) 102 98-107 [facility] CenterCarbon Dioxide Nksnx4254-53-99 00:35:00* Test Item Value Reference Range Interpretation Comments Carbon Dioxide Level (test code = 2028-9) 21 22-29 L [facility] CenterAnion Mlw6006-40-47 00:35:00* Test Item Value Reference Range Interpretation Comments Anion Gap (test code = 25751-7) 16.4 8-16 H [facility] CenterBlood Urea Wbcisddo1893-78-37 00:35:00* Test Item Value Reference Range Interpretation Comments Blood Urea Nitrogen (test code = 3094-0) 24 7-26 [facility] CenterCreatinine2019-08-04 00:35:00* Test Item Value Reference Range Interpretation Comments Creatinine (test code = 2160-0) 1.44 0.57-1.11 H [facility] CenterBUN/Creatinine Icdqw9109-11-48 00:35:00* Test Item Value Reference Range Interpretation Comments BUN/Creatinine Ratio (test code = 3097-3) 17 6-25 [facility] CenterEstimat Glomerular Filtration Rate 2019-02-24 00:35:00* Test Item Value Reference Range Interpretation Comments Estimat Glomerular Filtration Rate (test code = 267102041) 37 >60 L Ranges were taken from the National Kidney Disease Education Program and the [facility]nhrmcal [employer] literature.Reference ranges:60 or greater: Nvsyov53-60 ( for 3 consecutive months): Chronic kidney disease 15 or less: Kidney failureMission Regional Medical CenterGlucose Obcab7285-11-10 00:35:00* Test Item Value Reference Range Interpretation Comments Glucose Level (test code = YFZ1516) 665 74-118 HH Results repeated and called to SHILPA Jack at 0034 on 02/24/19 by Sagar Alegria. Malinda simpson back and verified.[facility] CenterCalcium Level 2019-02-24 00:35:00* Test Item Value Reference Range Interpretation Comments Calcium Level (test code = 65012-8) 9.5 8.4-10.2 [facility] CenterTotal Yatxsluyx5685-83-69 00:35:00* Test Item Value Reference Range Interpretation Comments Total Bilirubin (test code = 1975-2) 0.3 0.2-1.2 [facility] CenterAspartate Amino Transf (AST/SGOT) 2019-02-24 00:35:00* Test Item Value Reference Range Interpretation Comments Aspartate Amino Transf (AST/SGOT) (test code = Aspartate Amino Transf (AST/SGOT)) 12 5-34 [facility] CenterAlanine Aminotransferase (ALT/SGPT) 2019-02-24 00:35:00* Test Item Value Reference Range Interpretation Comments Alanine Aminotransferase (ALT/SGPT) (test code = 1742-6) 23 0-55 [facility] Jzcfbfv8834-56-74 00:35:00* Test Item Value Reference Range Interpretation Comments Total Protein (test code = 2885-2) 6.7 6.5-8.1 [facility] CenterAlbumin2019-08-04 00:35:00* Test Item Value Reference Range Interpretation Comments Albumin (test code = 1751-7) 3.5 3.5-5.0 [facility] CenterGlobulin2019-08-04 00:35:00* Test Item Value Reference Range Interpretation Comments Globulin (test code = 37188-4) 3.2 2.3-3.5 [facility] CenterAlbumin/Globulin Svzyi5287-54-80 00:35:00 * Test Item Value Reference Range Interpretation Comments Albumin/Globulin Ratio (test code = 1759-0) 1.1 0.8-2.0 [facility] CenterAlkaline Tgurcpurxnu4069-94-18 00:35:00* Test Item Value Reference Range Interpretation Comments Alkaline Phosphatase (test code = 6768-6) 82 40-150 [facility] CenterTotal Jlfmrgvnr6514-22-05 00:35:00* Test Item Value Reference Range Interpretation Comments Total Bilirubin (test code = 1975-2) 0.3 0.2-1.2 [facility] CenterAspartate Amino Transf (AST/SGOT) 2019-02-24 00:35:00* Test Item Value Reference Range Interpretation Comments Aspartate Amino Transf (AST/SGOT) (test code = Aspartate Amino Transf (AST/SGOT)) 12 5-34 [facility] CenterAlanine Aminotransferase (ALT/SGPT) 2019-02-24 00:35:00* Test Item Value Reference Range Interpretation Comments Alanine Aminotransferase (ALT/SGPT) (test code = 1742-6) 23 0-55 [facility] CenterTotal Zhnogej5802-01-40 00:35:00* Test Item Value Reference Range Interpretation Comments Total Protein (test code = 2885-2) 6.7 6.5-8.1 [facility] CenterAlbumin2019-08-04 00:35:00* Test Item Value Reference Range Interpretation Comments Albumin (test code = 1751-7) 3.5 3.5-5.0 [facility] CenterGlobulin2019-08-04 00:35:00* Test Item Value Reference Range Interpretation Comments Globulin (test code = 76507-4) 3.2 2.3-3.5 [facility] CenterAlbumin/Globulin Vaktm2489-16-70 00:35:00 * Test Item Value Reference Range Interpretation Comments Albumin/Globulin Ratio (test code = 1759-0) 1.1 0.8-2.0 [facility] CenterAlkaline Pknbhkdbnqt3215-43-52 00:35:00* Test Item Value Reference Range Interpretation Comments Alkaline Phosphatase (test code = 6768-6) 82 40-150 [facility] CenterTotal Vxywtknga8568-34-79 00:35:00* Test Item Value Reference Range Interpretation Comments Total Bilirubin (test code = 1975-2) 0.3 0.2-1.2 [facility] CenterAspartate Amino Transf (AST/SGOT) 2019-02-24 00:35:00* Test Item Value Reference Range Interpretation Comments Aspartate Amino Transf (AST/SGOT) (test code = Aspartate Amino Transf (AST/SGOT)) [facility] CenterAlanine Aminotransferase (ALT/SGPT) 2019-02-24 00:35:00* Test Item Value Reference Range Interpretation Comments Alanine Aminotransferase (ALT/SGPT) (test code = 1742-6) 23 0-55 [facility] CenterTotal Jctyejo3878-09-45 00:35:00* Test Item Value Reference Range Interpretation Comments Total Protein (test code = 2885-2) 6.7 6.5-8.1 [facility] CenterAlbumin2019-08-04 00:35:00* Test Item Value Reference Range Interpretation Comments Albumin (test code = 1751-7) 3.5 3.5-5.0 [facility] CenterGlobulin2019-08-04 00:35:00* Test Item Value Reference Range Interpretation Comments Globulin (test code = 53630-1) 3.2 2.3-3.5 [facility] CenterAlbumin/Globulin Uyceu3326-04-02 00:35:00 * Test Item Value Reference Range Interpretation Comments Albumin/Globulin Ratio (test code = 1759-0) 1.1 0.8-2.0 [facility] CenterAlkaline Vuedctbnzhv6969-79-27 00:35:00* Test Item Value Reference Range Interpretation Comments Alkaline Phosphatase (test code = 6768-6) 82 40-150 [facility] CenterTotal Dfsxukvrh1988-06-99 00:35:00* Test Item Value Reference Range Interpretation Comments Total Bilirubin (test code = 1975-2) 0.3 0.2-1.2 [facility] CenterAspartate Amino Transf (AST/SGOT) 2019-02-24 00:35:00* Test Item Value Reference Range Interpretation Comments Aspartate Amino Transf (AST/SGOT) (test code = Aspartate Amino Transf (AST/SGOT)) [facility] CenterAlanine Aminotransferase (ALT/SGPT) 2019-02-24 00:35:00* Test Item Value Reference Range Interpretation Comments Alanine Aminotransferase (ALT/SGPT) (test code = 1742-6) 23 0-55 [facility] CenterTotal Gsshkxc3674-22-91 00:35:00* Test Item Value Reference Range Interpretation Comments Total Protein (test code = 2885-2) 6.7 6.5-8.1 [facility]Albumin[facility] 00:35:00* Test Item Value Reference Range Interpretation Comments Albumin (test code = 1751-7) 3.5 3.5-5.0 [facility] CenterGlobulin2019-08-[facility] 00:35:00* Test Item Value Reference Range Interpretation Comments Globulin (test code = 81004-6) 3.2 2.3-3.5 [facility] CenterAlbumin/Globulin Jrdnw7866-47-47 00:35:00 * Test Item Value Reference Range Interpretation Comments Albumin/Globulin Ratio (test code = 1759-0) 1.1 0.8-2.0 [facility] CenterAlkaline Cbknlpxgpod5433-19-33 00:35:00* Test Item Value Reference Range Interpretation Comments Alkaline Phosphatase (test code = 6768-6) 82 40-150 [facility] CenterTotal Ayglgubro7419-52-58 00:35:00* Test Item Value Reference Range Interpretation Comments Total Bilirubin (test code = 1975-2) 0.3 0.2-1.2 [facility] CenterAspartate Amino Transf (AST/SGOT) 2019-02-24 00:35:00* Test Item Value Reference Range Interpretation Comments Aspartate Amino Transf (AST/SGOT) (test code = Aspartate Amino Transf (AST/SGOT)) 12 5-34 [facility] CenterAlanine Aminotransferase (ALT/SGPT) 2019-02-24 00:35:00* Test Item Value Reference Range Interpretation Comments Alanine Aminotransferase (ALT/SGPT) (test code = 1742-6) 23 0-55 [facility] CenterTotal Aqwcopd4178-37-57 00:35:00* Test Item Value Reference Range Interpretation Comments Total Protein (test code = 2885-2) 6.7 6.5-8.1 [facility] CenterAlbumin2019-08-[facility] 00:35:00* Test Item Value Reference Range Interpretation Comments Albumin (test code = 1751-7) 3.5 3.5-5.0 [facility] CenterGlobulin2019-08-04 00:35:00* Test Item Value Reference Range Interpretation Comments Globulin (test code = 27802-7) 3.2 2.3-3.5 [facility] CenterAlbumin/Globulin Dhbvt5697-84-16 00:35:00 * Test Item Value Reference Range Interpretation Comments Albumin/Globulin Ratio (test code = 1759-0) 1.1 0.8-2.0 [facility] CenterAlkaline Gdzdooiigwo7626-37-58 00:35:00* Test Item Value Reference Range Interpretation Comments Alkaline Phosphatase (test code = 6768-6) 82 40-150 [facility] CenterWhite Blood Hfgmw3479-33-61 00:18:00* Test Item Value Reference Range Interpretation Comments White Blood Count (test code = 6690-2) 5.09 4.8-10.8 [facility] CenterRed Blood Unkqn7786-50-47 00:18:00* Test Item Value Reference Range Interpretation Comments Red Blood Count (test code = 789-8) 4.64 3.6-5.1 [facility] CenterHemoglobin2019-08-04 00:18:00* Test Item Value Reference Range Interpretation Comments Hemoglobin (test code = 92710-0) 11.8 12.0-16.0 L [facility] CenterHematocrit2019-08-04 00:18:00* Test Item Value Reference Range Interpretation Comments Hematocrit (test code = 4544-3) 37.6 34.2-44.1 [facility] CenterMean Corpuscular Wkggee8640-18-65 00:18:00* Test Item Value Reference Range Interpretation Comments Mean Corpuscular Volume (test code = 787-2) 81.0 81-99 [facility] CenterMean Corpuscular Kjqczadzww5050-89-53 00:18:00* Test Item Value Reference Range Interpretation Comments Mean Corpuscular Hemoglobin (test code = 785-6) 25.4 28-32 L [facility] CenterMean Corpuscular Hemoglobin Concent 2019-02-24 00:18:00* Test Item Value Reference Range Interpretation Comments Mean Corpuscular Hemoglobin Concent (test code = 786-4) 31.4 31-35 [facility] CenterRed Cell Distribution Qwcgi7129-32-03 00:18:00* Test Item Value Reference Range Interpretation Comments Red Cell Distribution Width (test code = 42347-7) 15.5 11.7 -14.4 H [facility] CenterPlatelet Gnulw5730-98-62 00:18:00* Test Item Value Reference Range Interpretation Comments Platelet Count (test code = 777-3) 155 140-360 [facility] CenterNeutrophils (%) (Auto)2019-02-24 00:18:00 * Test Item Value Reference Range Interpretation Comments Neutrophils (%) (Auto) (test code = 75900-6) 69.6 38.7-80.0 [facility] CenterLymphocytes (%) (Auto)2019-02-24 00:18:00 * Test Item Value Reference Range Interpretation Comments Lymphocytes (%) (Auto) (test code = 736-9) 20.0 18.0-39.1 [facility] CenterMonocytes (%) (Auto)2019-02-24 00:18:00* Test Item Value Reference Range Interpretation Comments Monocytes (%) (Auto) (test code = 5905-5) 5.1 4.4-11.3 [facility] CenterEosinophils (%) (Auto)2019-02-24 00:18:00 * Test Item Value Reference Range Interpretation Comments Eosinophils (%) (Auto) (test code = 713-8) 3.3 0.0-6.0 [facility] CenterBasophils (%) (Auto)2019-02-24 00:18:00* Test Item Value Reference Range Interpretation Comments Basophils (%) (Auto) (test code = 706-2) 1.0 0.0-1.0 [facility] CenterIM GRANULOCYTES %2019-02-24 00:18:00* Test Item Value Reference Range Interpretation Comments IM GRANULOCYTES % (test code = IM GRANULOCYTES %) 1.0 0.0- 1.0 [facility] CenterNeutrophils # (Auto)2019-02-24 00:18:00* Test Item Value Reference Range Interpretation Comments Neutrophils # (Auto) (test code = 751-8) 3.5 2.1-6.9 [facility] CenterLymphocytes # (Auto)2019-02-24 00:18:00* Test Item Value Reference Range Interpretation Comments Lymphocytes # (Auto) (test code = 66219-4) 1.0 1.0-3.2 [facility] CenterMonocytes # (Auto)2019-02-24 00:18:00* Test Item Value Reference Range Interpretation Comments Monocytes # (Auto) (test code = 742-7) 0.3 0.2-0.8 [facility] CenterEosinophils # (Auto)2019-02-24 00:18:00* Test Item Value Reference Range Interpretation Comments Eosinophils # (Auto) (test code = 711-2) 0.2 0.0-0.4 [facility] CenterBasophils # (Auto)2019-02-24 00:18:00* Test Item Value Reference Range Interpretation Comments Basophils # (Auto) (test code = 704-7) 0.1 0.0-0.1 [facility] CenterAbsolute Immature Granulocyte (auto 2019-02-24 00:18:00* Test Item Value Reference Range Interpretation Comments Absolute Immature Granulocyte (auto (joseph t code = Absolute Immature Granulocyte (auto) 0.05 0-0.1 [facility] CenterBedside Ohhpdwk8651-08-69 12:27:00* Test Item Value Reference Range Interpretation Comments Bedside Glucose (test code = 87820-4) 302 70-120 H Meter ID: [id number]. David's Medical Centerodium Level 2019-01-21 06:25:00* Test Item Value Reference Range Interpretation Comments Sodium Level (test code = 2951-2) 137 136-145 [facility] CenterPotassium Itvei5110-49-45 06:25:00* Test Item Value Reference Range Interpretation Comments Potassium Level (test code = 2823-3) 4.8 3.5-5.1 [facility] CenterChloride Chqjj6911-46-79 06:25:00* Test Item Value Reference Range Interpretation Comments Chloride Level (test code = 2075-0) 101 98-107 [facility] CenterCarbon Dioxide Wljtc5438-37-02 06:25:00* Test Item Value Reference Range Interpretation Comments Carbon Dioxide Level (test code = 2028-9) 29 22-29 [facility] CenterAnion Bym8091-55-21 06:25:00* Test Item Value Reference Range Interpretation Comments Anion Gap (test code = 16929-7) 11.8 8-16 [facility] CenterBlood Urea Eeaiyoph7082-72-49 06:25:00* Test Item Value Reference Range Interpretation Comments Blood Urea Nitrogen (test code = 3094-0) 17 7-26 [facility] CenterCreatinine2019-07-01 06:25:00* Test Item Value Reference Range Interpretation Comments Creatinine (test code = 2160-0) 0.98 0.57-1.11 [facility] CenterBUN/Creatinine Cmblt0741-63-47 06:25:00* Test Item Value Reference Range Interpretation Comments BUN/Creatinine Ratio (test code = 3097-3) 17 6-25 [facility] CenterEstimat Glomerular Filtration Rate 2019-01-21 06:25:00* Test Item Value Reference Range Interpretation Comments Estimat Glomerular Filtration Rate (test code = 382860080) 58 >60 L Ranges were taken from the National Kidney Disease Education Program and the [facility]nhrm[facility] [employer] literature.Reference ranges:60 or greater: Wujlyf62-95 ( for 3 consecutive months): Chronic kidney disease 15 or less: Kidney failureMission Regional Medical CenterGlucose Opslz4937-86-24 06:25:00* Test Item Value Reference Range Interpretation Comments Glucose Level (test code = HKR6832) 252 74-118 H [facility] CenterCalcium Sgowj2298-66-81 06:25:00* Test Item Value Reference Range Interpretation Comments Calcium Level (test code = 25631-7) 9.2 8.4-10.2 [facility] CenterTotal Cwqlnxkkj0126-99-69 06:25:00* Test Item Value Reference Range Interpretation Comments Total Bilirubin (test code = 1975-2) 0.2 0.2-1.2 [facility] CenterAspartate Amino Transf (AST/SGOT) 2019-01-21 06:25:00* Test Item Value Reference Range Interpretation Comments Aspartate Amino Transf (AST/SGOT) (test code = Aspartate Amino Transf (AST/SGOT)) 13 5-34 [facility] CenterAlanine Aminotransferase (ALT/SGPT) 2019-01-21 06:25:00* Test Item Value Reference Range Interpretation Comments Alanine Aminotransferase (ALT/SGPT) (test code = 1742-6) 17 0-55 [facility] Onfckeu8670-30-66 06:25:00* Test Item Value Reference Range Interpretation Comments Total Protein (test code = 2885-2) 6.3 6.5-8.1 L [facility] CenterAlbumin2019-07-01 06:25:00* Test Item Value Reference Range Interpretation Comments Albumin (test code = 1751-7) 3.2 3.5-5.0 L [facility] CenterGlobulin2019-07-01 06:25:00* Test Item Value Reference Range Interpretation Comments Globulin (test code = 64291-8) 3.1 2.3-3.5 [facility] CenterAlbumin/Globulin Thnim7794-25-17 06:25:00 * Test Item Value Reference Range Interpretation Comments Albumin/Globulin Ratio (test code = 1759-0) 1.0 0.8-2.0 [facility] CenterAlkaline Lwioabvgwej5465-68-75 06:25:00* Test Item Value Reference Range Interpretation Comments Alkaline Phosphatase (test code = 6768-6) 78 40-150 [facility] CenterWhite Blood Ufokc2175-92-14 06:21:00* Test Item Value Reference Range Interpretation Comments White Blood Count (test code = 6690-2) 4.81 4.8-10.8 [facility] CenterRed Blood Kataj1773-92-96 06:21:00* Test Item Value Reference Range Interpretation Comments Red Blood Count (test code = 789-8) 4.90 3.6-5.1 [facility] CenterHemoglobin2019-07-01 06:21:00* Test Item Value Reference Range Interpretation Comments Hemoglobin (test code = 62783-5) 12.0 12.0-16.0 [facility] CenterHematocrit2019-07-01 06:21:00* Test Item Value Reference Range Interpretation Comments Hematocrit (test code = 4544-3) 39.4 34.2-44.1 [facility] CenterMean Corpuscular Dpmjif3951-58-76 06:21:00* Test Item Value Reference Range Interpretation Comments Mean Corpuscular Volume (test code = 787-2) 80.4 81-99 L [facility] CenterMean Corpuscular Vgnwgquhhh0644-50-72 06:21:00* Test Item Value Reference Range Interpretation Comments Mean Corpuscular Hemoglobin (test code = 785-6) 24.5 28-32 L [facility] CenterMean Corpuscular Hemoglobin Concent 2019-01-21 06:21:00* Test Item Value Reference Range Interpretation Comments Mean Corpuscular Hemoglobin Concent (test code = 786-4) 30.5 31-35 L [facility] CenterRed Cell Distribution Ecdht2231-19-36 06:21:00* Test Item Value Reference Range Interpretation Comments Red Cell Distribution Width (test code = 02511-6) 14.6 11.7 -14.4 H [facility] CenterPlatelet Pcrfw7245-52-55 06:21:00* Test Item Value Reference Range Interpretation Comments Platelet Count (test code = 777-3) 157 140-360 [facility] CenterNeutrophils (%) (Auto)2019-01-21 06:21:00 * Test Item Value Reference Range Interpretation Comments Neutrophils (%) (Auto) (test code = 00390-6) 62.2 38.7-80.0 [facility] CenterLymphocytes (%) (Auto)2019-01-21 06:21:00 * Test Item Value Reference Range Interpretation Comments Lymphocytes (%) (Auto) (test code = 736-9) 25.8 18.0-39.1 [facility] CenterMonocytes (%) (Auto)2019-01-21 06:21:00* Test Item Value Reference Range Interpretation Comments Monocytes (%) (Auto) (test code = 5905-5) 5.8 4.4-11.3 [facility] CenterEosinophils (%) (Auto)2019-01-21 06:21:00 * Test Item Value Reference Range Interpretation Comments Eosinophils (%) (Auto) (test code = 713-8) 5.0 0.0-6.0 [facility] CenterBasophils (%) (Auto)2019-01-21 06:21:00* Test Item Value Reference Range Interpretation Comments Basophils (%) (Auto) (test code = 706-2) 0.6 0.0-1.0 [facility] CenterIM GRANULOCYTES %2019-01-21 06:21:00* Test Item Value Reference Range Interpretation Comments IM GRANULOCYTES % (test code = IM GRANULOCYTES %) 0.6 0.0- 1.0 [facility] CenterNeutrophils # (Auto)2019-01-21 06:21:00* Test Item Value Reference Range Interpretation Comments Neutrophils # (Auto) (test code = 751-8) 3.0 2.1-6.9 [facility] CenterLymphocytes # (Auto)2019-01-21 06:21:00* Test Item Value Reference Range Interpretation Comments Lymphocytes # (Auto) (test code = 18890-6) 1.2 1.0-3.2 [facility] CenterMonocytes # (Auto)2019-01-21 06:21:00* Test Item Value Reference Range Interpretation Comments Monocytes # (Auto) (test code = 742-7) 0.3 0.2-0.8 [facility] CenterEosinophils # (Auto)2019-01-21 06:21:00* Test Item Value Reference Range Interpretation Comments Eosinophils # (Auto) (test code = 711-2) 0.2 0.0-0.4 [facility] CenterBasophils # (Auto)2019-01-21 06:21:00* Test Item Value Reference Range Interpretation Comments Basophils # (Auto) (test code = 704-7) 0.0 0.0-0.1 [facility] CenterAbsolute Immature Granulocyte (auto 2019-01-21 06:21:00* Test Item Value Reference Range Interpretation Comments Absolute Immature Granulocyte (auto (joseph t code = Absolute Immature Granulocyte (auto) 0.03 0-0.1 [facility] CenterCholesterol Hvysb2309-80-62 15:27:00* Test Item Value Reference Range Interpretation Comments Cholesterol Level (test code = 2093-3) 171 0-199 Less than 200 mg/dL Low Jcsp563 - 239 mg/dL Borderline Wfsl549 m g/dl and greater High Risk [facility] CenterLDL Viqupujkwav4643-23-02 15:27:00* Test Item Value Reference Range Interpretation Comments LDL Cholesterol (test code = 2089-1) 103 60-130 [facility] CenterHDL Ujdglvtmbim9060-40-98 15:27:00* Test Item Value Reference Range Interpretation Comments HDL Cholesterol (test code = 2085-9) 30 40-60 L [facility] CenterCholesterol/HDL Vvrpw5902-00-25 15:27:00 * Test Item Value Reference Range Interpretation Comments Cholesterol/HDL Ratio (test code = 9830-1) 5.7 3.0-3.6 H [facility] CenterCholesterol Uorty3964-16-08 15:27:00* Test Item Value Reference Range Interpretation Comments Cholesterol Level (test code = 2093-3) 171 0-199 Less than 200 mg/dL Low Rlzn268 - 239 mg/dL Borderline Evwj357 m g/dl and greater High Risk [facility] CenterLDL Twehqblbtcv5917-98-56 15:27:00* Test Item Value Reference Range Interpretation Comments LDL Cholesterol (test code = 2089-1) 103 60-130 [facility] Stqzkkdfjwa2426-43-55 15:27:00* Test Item Value Reference Range Interpretation Comments HDL Cholesterol (test code = 2085-9) 30 40-60 L [facility] CenterCholesterol/HDL Idocv9155-63-25 15:27:00 * Test Item Value Reference Range Interpretation Comments Cholesterol/HDL Ratio (test code = 9830-1) 5.7 3.0-3.6 H [facility] CenterCholesterol Xdmlh5699-02-34 15:27:00* Test Item Value Reference Range Interpretation Comments Cholesterol Level (test code = 2093-3) 171 0-199 Less than 200 mg/dL Low Xiqq229 - 239 mg/dL Borderline Xvay262 m g/dl and greater High Risk [facility] CenterLDL Hayjzxxwzcm5402-66-00 15:27:00* Test Item Value Reference Range Interpretation Comments LDL Cholesterol (test code = 2089-1) 103 60-130 [facility] Aniqhfpyaeo4071-13-79 15:27:00* Test Item Value Reference Range Interpretation Comments HDL Cholesterol (test code = 2085-9) 30 40-60 L [facility] CenterCholesterol/HDL Hayvn6340-70-70 15:27:00 * Test Item Value Reference Range Interpretation Comments Cholesterol/HDL Ratio (test code = 9830-1) 5.7 3.0-3.6 H [facility] CenterCholesterol Idmnp4083-60-25 15:27:00* Test Item Value Reference Range Interpretation Comments Cholesterol Level (test code = 3-3) 171 0-199 Less than 200 mg/dL Low Vbjy154 - 239 mg/dL Borderline Iutu051 m g/dl and greater High Risk [facility] CenterLDL Myhspctouoy4839-54-80 15:27:00* Test Item Value Reference Range Interpretation Comments LDL Cholesterol (test code = 2089-1) 103 60-130 [facility] Ffsjsziezql6278-42-07 15:27:00* Test Item Value Reference Range Interpretation Comments HDL Cholesterol (test code = 2085-9) 30 40-60 L [facility] CenterCholesterol/HDL Uvhip8201-18-14 15:27:00 * Test Item Value Reference Range Interpretation Comments Cholesterol/HDL Ratio (test code = 9830-1) 5.7 3.0-3.6 H [facility] CenterCholesterol Vvsxc3994-23-51 15:27:00* Test Item Value Reference Range Interpretation Comments Cholesterol Level (test code = 3-3) 171 0-199 Less than 200 mg/dL Low Omxv054 - 239 mg/dL Borderline Mxcr941 m g/dl and greater High Risk [facility] CenterLDL Jyuzryclerm1368-38-86 15:27:00* Test Item Value Reference Range Interpretation Comments LDL Cholesterol (test code = 9-1) 103 60-130 [facility] Nvtxxzupnqj6814-20-29 15:27:00* Test Item Value Reference Range Interpretation Comments HDL Cholesterol (test code = 2085-9) 30 40-60 L [facility] CenterCholesterol/HDL Qnrdw9544-42-28 15:27:00 * Test Item Value Reference Range Interpretation Comments Cholesterol/HDL Ratio (test code = 9830-1) 5.7 3.0-3.6 H [facility] CenterCholesterol Jyyvb5419-00-51 15:27:00* Test Item Value Reference Range Interpretation Comments Cholesterol Level (test code = 3-3) 171 0-199 Less than 200 mg/dL Low Alhq746 - 239 mg/dL Borderline Ujcu892 m g/dl and greater High Risk [facility] CenterLDL Nyoxnglmity4030-35-32 15:27:00* Test Item Value Reference Range Interpretation Comments LDL Cholesterol (test code = 2088-) 103 60-130 [facility] Vlhzwjiuzsk9101-99-21 15:27:00* Test Item Value Reference Range Interpretation Comments HDL Cholesterol (test code = 2085-9) 30 40-60 L [facility] CenterCholesterol/HDL Qgexv8040-98-70 15:27:00 * Test Item Value Reference Range Interpretation Comments Cholesterol/HDL Ratio (test code = 9830-1) 5.7 3.0-3.6 H [facility] CenterTriglycerides Nwiee8573-31-72 13:34:00* Test Item Value Reference Range Interpretation Comments Triglycerides Level (test code = 2571-8) 190 0-149 H [facility] CenterTriglycerides Kiqyz3234-04-63 13:34:00* Test Item Value Reference Range Interpretation Comments Triglycerides Level (test code = 2571-8) 190 0-149 H [facility] CenterTriglycerides Dvchc9826-76-98 13:34:00* Test Item Value Reference Range Interpretation Comments Triglycerides Level (test code = 2571-8) 190 0-149 H [facility] CenterTriglycerides Qoqyv2072-01-10 13:34:00* Test Item Value Reference Range Interpretation Comments Triglycerides Level (test code = 2571-8) 190 0-149 H [facility] CenterTriglycerides Ggwvv9794-86-59 13:34:00* Test Item Value Reference Range Interpretation Comments Triglycerides Level (test code = 2571-8) 190 0-149 H [facility] CenterTriglycerides Yllwo7694-83-71 13:34:00* Test Item Value Reference Range Interpretation Comments Triglycerides Level (test code = 2571-8) 190 0-149 H [facility] Occult Sapkc9271-20-18 09:04:00* Test Item Value Reference Range Interpretation Comments Stool Occult Blood (test code = 2335-8) POSITIVE NEGATIVE [facility] Occult Xiesh6108-71-99 09:04:00* Test Item Value Reference Range Interpretation Comments Stool Occult Blood (test code = 2335-8) POSITIVE NEGATIVE [facility] Occult Uqtpk3028-04-13 09:04:00* Test Item Value Reference Range Interpretation Comments Stool Occult Blood (test code = 2335-8) POSITIVE NEGATIVE [facility] Occult Jkpvk8881-70-15 09:04:00* Test Item Value Reference Range Interpretation Comments Stool Occult Blood (test code = 2335-8) POSITIVE NEGATIVE [facility] Occult Oehie4397-68-80 09:04:00* Test Item Value Reference Range Interpretation Comments Stool Occult Blood (test code = 2335-8) POSITIVE NEGATIVE [facility] Occult Trnsb2554-00-63 09:04:00* Test Item Value Reference Range Interpretation Comments Stool Occult Blood (test code = 2335-8) POSITIVE NEGATIVE H [facility] CenterThyroid Stimulating Hormone (TSH) 2019-01-18 06:48:00* Test Item Value Reference Range Interpretation Comments Thyroid Stimulating Hormone (TSH) (test code = 49440-6) 0.428 0.350-4.940 [facility] CenterThyroid Stimulating Hormone (TSH) 2019-01-18 06:48:00* Test Item Value Reference Range Interpretation Comments Thyroid Stimulating Hormone (TSH) (test code = 96311-8) 0.428 0.350-4.940 [facility] CenterThyroid Stimulating Hormone (TSH) 2019-01-18 06:48:00* Test Item Value Reference Range Interpretation Comments Thyroid Stimulating Hormone (TSH) (test code = 48595-8) 0.428 0.350-4.940 [facility] CenterThyroid Stimulating Hormone (TSH) 2019-01-18 06:48:00* Test Item Value Reference Range Interpretation Comments Thyroid Stimulating Hormone (TSH) (test code = 73240-9) 0.428 0.350-4.940 [facility] CenterThyroid Stimulating Hormone (TSH) 2019-01-18 06:48:00* Test Item Value Reference Range Interpretation Comments Thyroid Stimulating Hormone (TSH) (test code = 52504-8) 0.428 0.350-4.940 [facility] CenterThyroid Stimulating Hormone (TSH) 2019-01-18 06:48:00* Test Item Value Reference Range Interpretation Comments Thyroid Stimulating Hormone (TSH) (test code = 79525-6) 0.428 0.350-4.940 [facility] CenterFr Fhfdhpacc2810-38-71 15:32:00* Test Item Value Reference Range Interpretation Comments Free Thyroxine (test code = 3024-7) 1.05 0.8-1.8 [facility] Ctuyyutuo1359-77-59 15:32:00* Test Item Value Reference Range Interpretation Comments Free Thyroxine (test code = 3024-7) 1.05 0.8-1.8 [facility] Dncwwdzqz3839-22-33 15:32:00* Test Item Value Reference Range Interpretation Comments Free Thyroxine (test code = 3024-7) 1.05 0.8-1.8 [facility] Gzbjcloap1252-19-73 15:32:00* Test Item Value Reference Range Interpretation Comments Free Thyroxine (test code = 3024-7) 1.05 0.8-1.8 [facility] Vrolvtkpp0183-64-07 15:32:00* Test Item Value Reference Range Interpretation Comments Free Thyroxine (test code = 3024-7) 1.05 0.8-1.8 [facility] Azezgzhbk1484-69-39 15:32:00* Test Item Value Reference Range Interpretation Comments Free Thyroxine (test code = 3024-7) 1.05 0.8-1.8 [facility] CenterCreatine Ckvwmw8388-17-99 14:58:00* Test Item Value Reference Range Interpretation Comments Creatine Kinase (test code = 2157-6) 23 29-168 L [facility] CenterCreatine Kinase GM9807-50-60 14:58:00* Test Item Value Reference Range Interpretation Comments Creatine Kinase MB (test code = 30091-8) 0.60 0-5.0 [facility] CenterTrpr[facility]n U0127-17-37 14:58:00* Test Item Value Reference Range Interpretation Comments Troponin I (test code = RVY7731) < 0.001 0-0.300 [facility] CenterCreatine Oafler6395-45-22 14:58:00* Test Item Value Reference Range Interpretation Comments Creatine Kinase (test code = 2157-6) 23 29-168 L [facility] CenterCreatine Kinase FR2383-97-91 14:58:00* Test Item Value Reference Range Interpretation Comments Creatine Kinase MB (test code = 35919-0) 0.60 0-5.0 [facility] S7385-57-64 14:58:00* Test Item Value Reference Range Interpretation Comments Troponin I (test code = JNB5268) < 0.001 0-0.300 [facility] CenterCreat[facility] Wlnelp3836-23-20 14:58:00* Test Item Value Reference Range Interpretation Comments Creatine Kinase (test code = 2157-6) 23 29-168 L [facility] CenterCreat[facility] Kinase ME7506-70-81 14:58:00* Test Item Value Reference Range Interpretation Comments Creatine Kinase MB (test code = 48580-1) 0.60 0-5.0 [place] 40478019-06-27 14:58:00* Test Item Value Reference Range Interpretation Comments Troponin I (test code = WAX0880) < 0.001 0-0.300 [facility] Lhngzl5917-85-05 14:58:00* Test Item Value Reference Range Interpretation Comments Creatine Kinase (test code = 2157-6) 23 29-168 L [facility] Center[facility] Kin[facility] AJ4224-22-25 14:58:00* Test Item Value Reference Range Interpretation Comments Creatine Kinase MB (test code = 87606-7) 0.60 0-5.0 [place] 40478019-06-27 14:58:00* Test Item Value Reference Range Interpretation Comments Troponin I (test code = BJK7498) < 0.001 0-0.300 [facility] CenterCreat[facility] Vsigxa5452-54-61 14:58:00* Test Item Value Reference Range Interpretation Comments Creatine Kinase (test code = 2157-6) 23 29-168 L [facility] CenterCreat[facility] Kinase EU4833-84-03 14:58:00* Test Item Value Reference Range Interpretation Comments Creatine Kinase MB (test code = 37249-6) 0.60 0-5.0 [place] 40478019-06-27 14:58:00* Test Item Value Reference Range Interpretation Comments Troponin I (test code = ZKG4623) < 0.001 0-0.300 [facility] Pforqq9507-33-78 14:58:00* Test Item Value Reference Range Interpretation Comments Creatine Kinase (test code = 2157-6) 23 29-168 L [facility] CenterCreat[facility] Kinase TH2466-02-41 14:58:00* Test Item Value Reference Range Interpretation Comments Creatine Kinase MB (test code = 25557-3) 0.60 0-5.0 [facility] CenterTroponin F9490-70-88 14:58:00* Test Item Value Reference Range Interpretation Comments Troponin I (test code = MTT3585) < 0.001 0-0.300 [facility] CenterHemoglobin A1c Qdvgadx3413-81-98 14:27:00 * Test Item Value Reference Range Interpretation Comments Hemoglobin A1c Percent (test code = Hemoglobin A1c Percent) 11.6 4.0-7.0 H [facility] CenterHemoglobin A1c Rawuhey5915-10-32 14:27:00 * Test Item Value Reference Range Interpretation Comments Hemoglobin A1c Percent (test code = Hemoglobin A1c Percent) 11.6 4.0-7.0 H [facility] CenterHemoglobin A1c Ltcgmuj5784-70-39 14:27:00 * Test Item Value Reference Range Interpretation Comments Hemoglobin A1c Percent (test code = Hemoglobin A1c Percent) 11.6 4.0-7.0 H [facility] CenterHemoglobin A1c Vvihwsk2736-09-23 14:27:00 * Test Item Value Reference Range Interpretation Comments Hemoglobin A1c Percent (test code = Hemoglobin A1c Percent) 11.6 4.0-7.0 H [facility] CenterHemoglobin A1c Vwqgzzf7507-10-39 14:27:00 * Test Item Value Reference Range Interpretation Comments Hemoglobin A1c Percent (test code = Hemoglobin A1c Percent) 11.6 4.0-7.0 H [facility] CenterHemoglobin A1c Dmtvkcb6098-20-85 14:27:00 * Test Item Value Reference Range Interpretation Comments Hemoglobin A1c Percent (test code = Hemoglobin A1c Percent) 11.6 4.0-7.0 H [facility] CenterB-Type Natriuretic Vaagbpk2831-48-77 06:11:00* Test Item Value Reference Range Interpretation Comments B-Type Natriuretic Peptide (test code = 98507-0) 14.3 0-100 [facility] Vitsegx9072-88-74 06:11:00* Test Item Value Reference Range Interpretation Comments B-Type Natriuretic Peptide (test code = 20645-8) 14.3 0-100 [facility] Oymfavf0460-61-94 06:11:00* Test Item Value Reference Range Interpretation Comments B-Type Natriuretic Peptide (test code = 12416-2) 14.3 0-100 [facility] Center[facility] Nat[facility]tic Jtooqjf3785-32-88 06:11:00* Test Item Value Reference Range Interpretation Comments B-Type Natriuretic Peptide (test code = 36786-1) 14.3 0-100 [facility] CenterB[facility] Natriuretic Sbemgdd4265-75-88 06:11:00* Test Item Value Reference Range Interpretation Comments B-Type Natriuretic Peptide (test code = 23548-5) 14.3 0-100 [facility] Center[facility] Natriuretic Weipkpd1480-66-91 06:11:00* Test Item Value Reference Range Interpretation Comments B-Type Natriuretic Peptide (test code = 52900-4) 14.3 0-100 [facility] CenterU[facility] CJJ6453-16-00 21:13:00* Test Item Value Reference Range Interpretation Comments Urine WBC (test code = 5821-4) NONE 0-5 [facility] JZE9701-23-51 21:13:00* Test Item Value Reference Range Interpretation Comments Urine RBC (test code = 12830-6) NONE 0-5 [facility] Ecmxgrhb7213-16-70 21:13:00* Test Item Value Reference Range Interpretation Comments Urine Bacteria (test code = 60925-8) FEW NONE [facility] CenterU[facility] Epithelial Qjqka8627-72-86 21:13:00 * Test Item Value Reference Range Interpretation Comments Urine Epithelial Cells (test code = 22947-7) MANY NONE [facility] DDP7131-71-83 21:13:00* Test Item Value Reference Range Interpretation Comments Urine WBC (test code = 5821-4) NONE 0-5 [facility] Center[facility] ETL4645-66-04 21:13:00* Test Item Value Reference Range Interpretation Comments Urine RBC (test code = 56494-0) NONE 0-5 [facility] Center[facility] Zculqqlk7503-78-79 21:13:00* Test Item Value Reference Range Interpretation Comments Urine Bacteria (test code = 38410-9) FEW NONE [facility] CenterU[facility] Epithelial Odzrv8916-52-78 21:13:00 * Test Item Value Reference Range Interpretation Comments Urine Epithelial Cells (test code = 82863-5) MANY NONE [facility] Center[facility] WAC5548-79-18 21:13:00* Test Item Value Reference Range Interpretation Comments Urine WBC (test code = 5821-4) NONE 0-5 [facility] Center[facility] GMP0127-70-13 21:13:00* Test Item Value Reference Range Interpretation Comments Urine RBC (test code = 16927-2) NONE 0-5 [facility] Center[facility] Ioigllgs8437-28-73 21:13:00* Test Item Value Reference Range Interpretation Comments Urine Bacteria (test code = 49038-9) FEW NONE [facility] CenterU[facility] Epithelial Feyqt8214-98-91 21:13:00 * Test Item Value Reference Range Interpretation Comments Urine Epithelial Cells (test code = 64529-9) MANY NONE [facility] Center[facility] EUW3250-35-15 21:13:00* Test Item Value Reference Range Interpretation Comments Urine WBC (test code = 5821-4) NONE 0-5 [facility] SXK0940-90-36 21:13:00* Test Item Value Reference Range Interpretation Comments Urine RBC (test code = 03949-6) NONE 0-5 [facility] Center[facility] Wfumlynz3049-24-38 21:13:00* Test Item Value Reference Range Interpretation Comments Urine Bacteria (test code = 88045-9) FEW NONE [facility] Center[facility] Epithelial Izbsp2785-76-07 21:13:00 * Test Item Value Reference Range Interpretation Comments Urine Epithelial Cells (test code = 43609-1) MANY NONE [facility] AKQ9655-79-44 21:13:00* Test Item Value Reference Range Interpretation Comments Urine WBC (test code = 5821-4) NONE 0-5 [facility] PVS7945-13-04 21:13:00* Test Item Value Reference Range Interpretation Comments Urine RBC (test code = 93437-0) NONE 0-5 [facility] Center[facility] Purmercc1847-14-38 21:13:00* Test Item Value Reference Range Interpretation Comments Urine Bacteria (test code = 62539-6) FEW NONE [facility] CenterU[facility] Epithelial Hcxie0657-27-46 21:13:00 * Test Item Value Reference Range Interpretation Comments Urine Epithelial Cells (test code = 16248-5) MANY NONE [facility] QPQ7919-93-48 21:13:00* Test Item Value Reference Range Interpretation Comments Urine WBC (test code = 5821-4) NONE 0-5 [facility] Center[facility] MID5599-65-20 21:13:00* Test Item Value Reference Range Interpretation Comments Urine RBC (test code = 51929-3) NONE 0-5 [facility] Center[facility] Zlqqecyy6124-78-73 21:13:00* Test Item Value Reference Range Interpretation Comments Urine Bacteria (test code = 55423-8) FEW NONE [facility] CenterU[facility] Epithelial Mcsca3346-71-99 21:13:00 * Test Item Value Reference Range Interpretation Comments Urine Epithelial Cells (test code = 15301-4) MANY NONE [facility] Fofca0787-67-64 21:08:00* Test Item Value Reference Range Interpretation Comments Urine Color (test code = 5778-6) YELLOW YELLOW [facility] Hykyixi9119-84-68 21:08:00* Test Item Value Reference Range Interpretation Comments Urine Clarity (test code = 99913-9) CLEAR CLEAR [facility] CenterU[facility] Specific Awuxdds9694-59-32 21:08:00 * Test Item Value Reference Range Interpretation Comments Urine Specific Harmony (test code = 5811-5) <=1.005 1.010-1.02 5 [facility] mU6980-03-23 21:08:00* Test Item Value Reference Range Interpretation Comments Urine pH (test code = 49587-7) 6 5-7 [facility] Leukocyte Wgecutmr4495-49-14 21:08:00* Test Item Value Reference Range Interpretation Comments Urine Leukocyte Esterase (test code = 07160-4) NEGATIVE NEGATIV E [facility] Rhexqxv9921-16-38 21:08:00* Test Item Value Reference Range Interpretation Comments Urine Nitrite (test code = 17223-2) NEGATIVE NEGATIVE [facility] Kacqzzg9501-49-82 21:08:00* Test Item Value Reference Range Interpretation Comments Urine Protein (test code = 09620-2) NEGATIVE NEGATIVE [facility] Glucose (UA)2019-01-16 21:08:00* Test Item Value Reference Range Interpretation Comments Urine Glucose (UA) (test code = 52971-9) 3+ NEGATIVE [facility] Repiulo9474-11-85 21:08:00* Test Item Value Reference Range Interpretation Comments Urine Ketones (test code = 50400-5) NEGATIVE NEGATIVE [facility] Lmeasfdybhkz9069-74-31 21:08:00* Test Item Value Reference Range Interpretation Comments Urine Urobilinogen (test code = 71455-6) 0.2 0.2-1 [facility] Jmvnhzank3678-87-46 21:08:00* Test Item Value Reference Range Interpretation Comments Urine Bilirubin (test code = 1977-8) NEGATIVE NEGATIVE [facility] Ssxrj5135-54-18 21:08:00* Test Item Value Reference Range Interpretation Comments Urine Blood (test code = 52243-5) NEGATIVE NEGATIVE [facility] Legbg6127-13-78 21:08:00* Test Item Value Reference Range Interpretation Comments Urine Color (test code = 5778-6) YELLOW YELLOW [facility] Vjpxngv2779-70-79 21:08:00* Test Item Value Reference Range Interpretation Comments Urine Clarity (test code = 95432-6) CLEAR CLEAR [facility] Specific Eitqzyl0234-94-45 21:08:00 * Test Item Value Reference Range Interpretation Comments Urine Specific Harmony (test code = 5811-5) <=1.005 1.010-1.02 5 [facility] sW4727-07-58 21:08:00* Test Item Value Reference Range Interpretation Comments Urine pH (test code = 00150-7) 6 5-7 [facility] Leukocyte Tnrrmdby9768-46-17 21:08:00* Test Item Value Reference Range Interpretation Comments Urine Leukocyte Esterase (test code = 90667-7) NEGATIVE NEGATIV E [facility] Xtolvvq8263-03-31 21:08:00* Test Item Value Reference Range Interpretation Comments Urine Nitrite (test code = 12653-6) NEGATIVE NEGATIVE [facility] Hksazut2930-98-00 21:08:00* Test Item Value Reference Range Interpretation Comments Urine Protein (test code = 05419-6) NEGATIVE NEGATIVE [facility] Glucose (UA)2019-01-16 21:08:00* Test Item Value Reference Range Interpretation Comments Urine Glucose (UA) (test code = 09697-1) 3+ NEGATIVE [facility] Lgdjyqq0409-65-44 21:08:00* Test Item Value Reference Range Interpretation Comments Urine Ketones (test code = 89050-5) NEGATIVE NEGATIVE [facility] Ibiotbfwwrgi7836-03-26 21:08:00* Test Item Value Reference Range Interpretation Comments Urine Urobilinogen (test code = 05306-3) 0.2 0.2-1 [facility] Npqrkcwff6840-13-25 21:08:00* Test Item Value Reference Range Interpretation Comments Urine Bilirubin (test code = 1977-8) NEGATIVE NEGATIVE [facility] Bhrbu4547-72-31 21:08:00* Test Item Value Reference Range Interpretation Comments Urine Blood (test code = 65009-9) NEGATIVE NEGATIVE [facility] Alcgn0952-01-60 21:08:00* Test Item Value Reference Range Interpretation Comments Urine Color (test code = 5778-6) YELLOW YELLOW [facility] Bhjufvw0972-26-39 21:08:00* Test Item Value Reference Range Interpretation Comments Urine Clarity (test code = 75867-5) CLEAR CLEAR [facility] Specific Gfsbfry5325-59-70 21:08:00 * Test Item Value Reference Range Interpretation Comments Urine Specific Harmony (test code = 5811-5) <=1.005 1.010-1.02 5 [facility] hV3291-51-66 21:08:00* Test Item Value Reference Range Interpretation Comments Urine pH (test code = 73105-3) 6 5-7 [facility] Leukocyte Snsadawo2948-61-40 21:08:00* Test Item Value Reference Range Interpretation Comments Urine Leukocyte Esterase (test code = 36909-1) NEGATIVE NEGATIV E [facility] Ohbltul6557-07-85 21:08:00* Test Item Value Reference Range Interpretation Comments Urine Nitrite (test code = 37169-0) NEGATIVE NEGATIVE [facility] Sbzkcjs5594-33-98 21:08:00* Test Item Value Reference Range Interpretation Comments Urine Protein (test code = 19364-5) NEGATIVE NEGATIVE [facility] Glucose (UA)2019-01-16 21:08:00* Test Item Value Reference Range Interpretation Comments Urine Glucose (UA) (test code = 93065-2) 3+ NEGATIVE [facility] Qzlybcs7370-48-59 21:08:00* Test Item Value Reference Range Interpretation Comments Urine Ketones (test code = 92258-0) NEGATIVE NEGATIVE [facility] Ijvsccauemjv2681-85-09 21:08:00* Test Item Value Reference Range Interpretation Comments Urine Urobilinogen (test code = 33114-5) 0.2 0.2-1 [facility] Xyrqmrzxg7986-61-04 21:08:00* Test Item Value Reference Range Interpretation Comments Urine Bilirubin (test code = 1977-8) NEGATIVE NEGATIVE [facility] Onviy0228-01-65 21:08:00* Test Item Value Reference Range Interpretation Comments Urine Blood (test code = 38528-3) NEGATIVE NEGATIVE [facility] Rfrzs2737-96-55 21:08:00* Test Item Value Reference Range Interpretation Comments Urine Color (test code = 5778-6) YELLOW YELLOW [facility] Nkrwycp6750-94-36 21:08:00* Test Item Value Reference Range Interpretation Comments Urine Clarity (test code = 10462-5) CLEAR CLEAR [facility] Specific Ksbmjsb3925-72-33 21:08:00 * Test Item Value Reference Range Interpretation Comments Urine Specific Harmony (test code = 5811-5) <=1.005 1.010-1.02 5 [facility] mU5268-28-26 21:08:00* Test Item Value Reference Range Interpretation Comments Urine pH (test code = 72082-4) 6 5-7 [facility] Leukocyte Xbebmklp7517-64-20 21:08:00* Test Item Value Reference Range Interpretation Comments Urine Leukocyte Esterase (test code = 14315-2) NEGATIVE NEGATIV E [facility] Oejpzob7071-81-07 21:08:00* Test Item Value Reference Range Interpretation Comments Urine Nitrite (test code = 28025-0) NEGATIVE NEGATIVE [facility] Ypbyejl4492-92-88 21:08:00* Test Item Value Reference Range Interpretation Comments Urine Protein (test code = 57662-1) NEGATIVE NEGATIVE [facility] Glucose (UA)2019-01-16 21:08:00* Test Item Value Reference Range Interpretation Comments Urine Glucose (UA) (test code = 63341-3) 3+ NEGATIVE [facility] Pwxtlso0230-76-46 21:08:00* Test Item Value Reference Range Interpretation Comments Urine Ketones (test code = 20540-9) NEGATIVE NEGATIVE [facility] Gfeylgufdbfg7440-94-76 21:08:00* Test Item Value Reference Range Interpretation Comments Urine Urobilinogen (test code = 02931-5) 0.2 0.2-1 [facility] Yjdlhtvqq4203-06-34 21:08:00* Test Item Value Reference Range Interpretation Comments Urine Bilirubin (test code = 1977-8) NEGATIVE NEGATIVE [facility] Daege5671-48-37 21:08:00* Test Item Value Reference Range Interpretation Comments Urine Blood (test code = 63839-8) NEGATIVE NEGATIVE [facility] Mmmnd1474-91-67 21:08:00* Test Item Value Reference Range Interpretation Comments Urine Color (test code = 5778-6) YELLOW YELLOW [facility] Pvkyboe5724-98-24 21:08:00* Test Item Value Reference Range Interpretation Comments Urine Clarity (test code = 07255-0) CLEAR CLEAR [facility] Specific Iohpecu2631-97-83 21:08:00 * Test Item Value Reference Range Interpretation Comments Urine Specific Harmony (test code = 5811-5) <=1.005 1.010-1.02 5 [facility] oY6329-89-21 21:08:00* Test Item Value Reference Range Interpretation Comments Urine pH (test code = 96537-5) 6 5-7 [facility] Leukocyte Ohqiafyy8968-43-65 21:08:00* Test Item Value Reference Range Interpretation Comments Urine Leukocyte Esterase (test code = 18231-7) NEGATIVE NEGATIV E [facility] Iwdvbnb0759-95-85 21:08:00* Test Item Value Reference Range Interpretation Comments Urine Nitrite (test code = 46396-9) NEGATIVE NEGATIVE [facility] Ewbkksf8870-34-91 21:08:00* Test Item Value Reference Range Interpretation Comments Urine Protein (test code = 56583-5) NEGATIVE NEGATIVE [facility] Glucose (UA)2019-01-16 21:08:00* Test Item Value Reference Range Interpretation Comments Urine Glucose (UA) (test code = 84102-9) 3+ NEGATIVE [facility] Bjppjam3574-90-69 21:08:00* Test Item Value Reference Range Interpretation Comments Urine Ketones (test code = 60379-8) NEGATIVE NEGATIVE [facility] Fmrzwwsctodx3429-13-36 21:08:00* Test Item Value Reference Range Interpretation Comments Urine Urobilinogen (test code = 02848-6) 0.2 0.2-1 [facility] Utvhwwkds1648-64-05 21:08:00* Test Item Value Reference Range Interpretation Comments Urine Bilirubin (test code = 1977-8) NEGATIVE NEGATIVE [facility] Phvgl2091-13-94 21:08:00* Test Item Value Reference Range Interpretation Comments Urine Blood (test code = 35930-0) NEGATIVE NEGATIVE [facility] Mvxvs7106-65-10 21:08:00* Test Item Value Reference Range Interpretation Comments Urine Color (test code = 5778-6) YELLOW YELLOW [facility] Qpwhtss5754-74-14 21:08:00* Test Item Value Reference Range Interpretation Comments Urine Clarity (test code = 29857-0) CLEAR CLEAR [facility] CenterU[facility] Specific Uutxdjq9702-15-22 21:08:00 * Test Item Value Reference Range Interpretation Comments Urine Specific Harmony (test code = 5811-5) <=1.005 1.010-1.02 5 [facility] cL3378-89-17 21:08:00* Test Item Value Reference Range Interpretation Comments Urine pH (test code = 06821-4) 6 5-7 [facility] Leukocyte Tdlrumzo9548-16-37 21:08:00* Test Item Value Reference Range Interpretation Comments Urine Leukocyte Esterase (test code = 32709-5) NEGATIVE NEGATIV E [facility] Gyxtpii9502-73-08 21:08:00* Test Item Value Reference Range Interpretation Comments Urine Nitrite (test code = 19087-3) NEGATIVE NEGATIVE [facility] Asvwdla9749-95-56 21:08:00* Test Item Value Reference Range Interpretation Comments Urine Protein (test code = 85474-6) NEGATIVE NEGATIVE [facility] Glucose (UA)2019-01-16 21:08:00* Test Item Value Reference Range Interpretation Comments Urine Glucose (UA) (test code = 50696-8) 3+ NEGATIVE [facility] Efqmwsm6464-77-86 21:08:00* Test Item Value Reference Range Interpretation Comments Urine Ketones (test code = 79744-5) NEGATIVE NEGATIVE [facility] Fautmzgsnsih5317-70-04 21:08:00* Test Item Value Reference Range Interpretation Comments Urine Urobilinogen (test code = 59263-5) 0.2 0.2-1 [facility] Urgrrowme3884-62-26 21:08:00* Test Item Value Reference Range Interpretation Comments Urine Bilirubin (test code = 1977-8) NEGATIVE NEGATIVE [facility] Paakt0142-83-13 21:08:00* Test Item Value Reference Range Interpretation Comments Urine Blood (test code = 02836-6) NEGATIVE NEGATIVE [facility] CenterCHEST SINGLE (PORTABLE)2019-01-16 20:38:00 [place] [address] Patient Name: KALYANI TALAVERA MR #: [id number] : 1955 Age/Sex: 63/F Req #: [id number] Adm Physician: Ordered by: JACQUES JANE MD Report #: [id number] Location: ER Room/Bed: Procedure: 66 DX/CHEST SINGLE [...] pleural effusions with adjacent atelectasis. Signed by: Ivelisse DennyOMayi, M.M.M. on 01/16/2019 8:41 PM Dictated By: CHITRA LOWE DO 41 Transcribed By: JIM on 01/16/192040 COPY TO: JACQUES JANE MD Bedside Dcshbxl5396-33-43 11:08:00* Test Item Value Reference Range Interpretation Comments Bedside Glucose (test code = 70553-2) 289 70-120 H Meter ID: [id number]. David's Medical Centerodium Level 2019-01-13 05:34:00* Test Item Value Reference Range Interpretation Comments Sodium Level (test code = 2951-2) 138 136-145 [facility] Chrai6994-06-31 05:34:00* Test Item Value Reference Range Interpretation Comments Potassium Level (test code = 2823-3) 3.8 3.5-5.1 [facility] CenterChloride Dcvve6809-65-01 05:34:00* Test Item Value Reference Range Interpretation Comments Chloride Level (test code = 2075-0) 105 98-107 [facility] CenterCarbon Dioxide Avtpn4579-59-15 05:34:00* Test Item Value Reference Range Interpretation Comments Carbon Dioxide Level (test code = 8-9) 25 22-29 [facility] CenterAnion Pnb1858-41-73 05:34:00* Test Item Value Reference Range Interpretation Comments Anion Gap (test code = 60072-2) 11.8 8-16 [facility] CenterBlood Urea Cksggrqg0949-14-91 05:34:00* Test Item Value Reference Range Interpretation Comments Blood Urea Nitrogen (test code = 3094-0) 16 7-26 [facility] CenterCreatinine2019-06-23 05:34:00* Test Item Value Reference Range Interpretation Comments Creatinine (test code = 2160-0) 0.78 0.57-1.11 [facility] CenterBUN/Creatinine Obwkz3511-77-32 05:34:00* Test Item Value Reference Range Interpretation Comments BUN/Creatinine Ratio (test code = 3097-3) 21 6- [facility] CenterEstimat Glomerular Filtration Rate 2019-01-13 05:34:00* Test Item Value Reference Range Interpretation Comments Estimat Glomerular Filtration Rate (test code = 628840157) > 60 >60 Ranges were taken from the National Kidney Disease Education Program and the [facility] [employer] literature.Reference ranges:60 or greater: Auhxga19-44 ( for 3 consecutive months): Chronic kidney disease 15 or less: Kidney failureMission Regional Medical CenterGlucose Ysvmy4965-07-47 05:34:00* Test Item Value Reference Range Interpretation Comments Glucose Level (test code = AIE0397) 151 74-118 [facility] CenterCalcium Ebxlg7147-95-54 05:34:00* Test Item Value Reference Range Interpretation Comments Calcium Level (test code = 74623-0) 8.5 8.4-10.2 [facility] CenterTotal Ftzhfykpp8110-12-63 05:34:00* Test Item Value Reference Range Interpretation Comments Total Bilirubin (test code = 1975-2) 0.3 0.2-1.2 [facility] CenterAspartate Amino Transf (AST/SGOT) 2019-01-13 05:34:00* Test Item Value Reference Range Interpretation Comments Aspartate Amino Transf (AST/SGOT) (test code = Aspartate Amino Transf (AST/SGOT)) 12 5-34 [facility] CenterAlanine Aminotransferase (ALT/SGPT) 2019-01-13 05:34:00* Test Item Value Reference Range Interpretation Comments Alanine Aminotransferase (ALT/SGPT) (test code = 1742-6) 16 0-55 [facility] CenterTotal Wtcpdmp3171-41-69 05:34:00* Test Item Value Reference Range Interpretation Comments Total Protein (test code = 2885-2) 5.5 6.5-8.1 L [facility] CenterAlbumin2019-06-23 05:34:00* Test Item Value Reference Range Interpretation Comments Albumin (test code = 1751-7) 3.0 3.5-5.0 L [facility] CenterGlobulin2019-06-23 05:34:00* Test Item Value Reference Range Interpretation Comments Globulin (test code = 38816-3) 2.5 2.3-3.5 [facility] CenterAlbumin/Globulin Uulzc1960-30-90 05:34:00 * Test Item Value Reference Range Interpretation Comments Albumin/Globulin Ratio (test code = 1759-0) 1.2 0.8-2.0 [facility] CenterAlkaline Kuzyotismhl5198-33-18 05:34:00* Test Item Value Reference Range Interpretation Comments Alkaline Phosphatase (test code = 6768-6) 69 40-150 [facility] CenterWhite Blood Yzwlh7957-70-50 05:17:00* Test Item Value Reference Range Interpretation Comments White Blood Count (test code = 6690-2) 5.11 4.8-10.8 [facility] CenterRed Blood Xlsrv4270-66-50 05:17:00* Test Item Value Reference Range Interpretation Comments Red Blood Count (test code = 789-8) 4.52 3.6-5.1 [facility] CenterHemoglobin2019-06-23 05:17:00* Test Item Value Reference Range Interpretation Comments Hemoglobin (test code = 02580-8) 11.2 12.0-16.0 L [facility] CenterHematocrit2019-06-23 05:17:00* Test Item Value Reference Range Interpretation Comments Hematocrit (test code = 4544-3) 36.5 34.2-44.1 [facility] CenterMean Corpuscular Tibnsy3536-59-70 05:17:00* Test Item Value Reference Range Interpretation Comments Mean Corpuscular Volume (test code = 787-2) 80.8 81-99 L [facility] CenterMean Corpuscular Sfbbxtpyto6173-53-02 05:17:00* Test Item Value Reference Range Interpretation Comments Mean Corpuscular Hemoglobin (test code = 785-6) 24.8 28-32 L [facility] CenterMean Corpuscular Hemoglobin Concent 2019-01-13 05:17:00* Test Item Value Reference Range Interpretation Comments Mean Corpuscular Hemoglobin Concent (test code = 786-4) 30.7 31-35 L [facility] CenterRed Cell Distribution Pkdgn1719-54-40 05:17:00* Test Item Value Reference Range Interpretation Comments Red Cell Distribution Width (test code = 53807-3) 14.9 11.7 -14.4 H [facility] CenterPlatelet Pppmk2575-13-92 05:17:00* Test Item Value Reference Range Interpretation Comments Platelet Count (test code = 777-3) 149 140-360 [facility] CenterNeutrophils (%) (Auto)2019-01-13 05:17:00 * Test Item Value Reference Range Interpretation Comments Neutrophils (%) (Auto) (test code = 08454-1) 67.6 38.7-80.0 [facility] CenterLymphocytes (%) (Auto)2019-01-13 05:17:00 * Test Item Value Reference Range Interpretation Comments Lymphocytes (%) (Auto) (test code = 736-9) 20.4 18.0-39.1 [facility] CenterMonocytes (%) (Auto)2019-01-13 05:17:00* Test Item Value Reference Range Interpretation Comments Monocytes (%) (Auto) (test code = 5905-5) 5.9 4.4-11.3 [facility] CenterEosinophils (%) (Auto)2019-01-13 05:17:00 * Test Item Value Reference Range Interpretation Comments Eosinophils (%) (Auto) (test code = 713-8) 4.1 0.0-6.0 [facility] CenterBasophils (%) (Auto)2019-01-13 05:17:00* Test Item Value Reference Range Interpretation Comments Basophils (%) (Auto) (test code = 706-2) 1.2 0.0-1.0 H [facility] CenterIM GRANULOCYTES %2019-01-13 05:17:00* Test Item Value Reference Range Interpretation Comments IM GRANULOCYTES % (test code = IM GRANULOCYTES %) 0.8 0.0- 1.0 [facility] CenterNeutrophils # (Auto)2019-01-13 05:17:00* Test Item Value Reference Range Interpretation Comments Neutrophils # (Auto) (test code = 751-8) 3.5 2.1-6.9 [facility] CenterLymphocytes # (Auto)2019-01-13 05:17:00* Test Item Value Reference Range Interpretation Comments Lymphocytes # (Auto) (test code = 13518-3) 1.0 1.0-3.2 [facility] CenterMonocytes # (Auto)2019-01-13 05:17:00* Test Item Value Reference Range Interpretation Comments Monocytes # (Auto) (test code = 742-7) 0.3 0.2-0.8 [facility] CenterEosinophils # (Auto)2019-01-13 05:17:00* Test Item Value Reference Range Interpretation Comments Eosinophils # (Auto) (test code = 711-2) 0.2 0.0-0.4 [facility] CenterBasophils # (Auto)2019-01-13 05:17:00* Test Item Value Reference Range Interpretation Comments Basophils # (Auto) (test code = 704-7) 0.1 0.0-0.1 [facility] CenterAbsolute Immature Granulocyte (auto 2019-01-13 05:17:00* Test Item Value Reference Range Interpretation Comments Absolute Immature Granulocyte (auto (joseph t code = Absolute Immature Granulocyte (auto) 0.04 0-0.1 [facility] CenterHemoglobin A1c Apqpgqu0534-33-73 13:04:00 * Test Item Value Reference Range Interpretation Comments Hemoglobin A1c Percent (test code = Hemoglobin A1c Percent) 11.6 4.0-7.0 H [facility] CenterUrine WKB9411-39-93 18:54:00* Test Item Value Reference Range Interpretation Comments Urine WBC (test code = 5821-4) NONE 0-5 [facility] CenterUrine VTF8601-69-32 18:54:00* Test Item Value Reference Range Interpretation Comments Urine RBC (test code = 36970-9) NONE 0-5 [facility] CenterUrine Vtiiwcma6814-90-53 18:54:00* Test Item Value Reference Range Interpretation Comments Urine Bacteria (test code = 91700-1) FEW NONE [facility] CenterUrine Epithelial Gyibn2865-18-67 18:54:00 * Test Item Value Reference Range Interpretation Comments Urine Epithelial Cells (test code = 17874-3) FEW NONE [facility] CenterCreatine Kinase RF9259-61-82 18:44:00* Test Item Value Reference Range Interpretation Comments Creatine Kinase MB (test code = 85288-4) 1.00 0-5.0 [facility] CenterTroponin C1030-05-31 18:44:00* Test Item Value Reference Range Interpretation Comments Troponin I (test code = OYL1012) 0.002 0-0.300 [facility] CenterCHEST SINGLE (PORTABLE)2019-01-11 18:42:00 [place] [address] Patient Name: KALYANI TALAVERA MR #: [id number] : 1955 Age/Sex: 63/F Req #: [id number] Adm Physician: Ordered by: FLO TOLBERT MD Report #: [id number] Location: ER Room/Bed: Procedure: [id number] DX/C HEST SINGLE (PORTABLE) Exam Date: Exam [...] 01/11/191842 COPY TO: FLO TOLBERT MD Creatine Hsawjs2577-71-55 18:39:00* Test Item Value Reference Range Interpretation Comments Creatine Kinase (test code = 2157-6) 29 29-168 [facility] CenterUrine Xhldu3331-65-53 18:38:00* Test Item Value Reference Range Interpretation Comments Urine Color (test code = 5778-6) YELLOW YELLOW [facility] CenterUrine Hbeoagv0603-01-40 18:38:00* Test Item Value Reference Range Interpretation Comments Urine Clarity (test code = 89758-8) CLEAR CLEAR [facility] CenterUrine Specific Fkworpi1593-39-05 18:38:00 * Test Item Value Reference Range Interpretation Comments Urine Specific Harmony (test code = 5811-5) 1.010 1.010-1.02 5 [facility] CenterUrine tF5757-64-68 18:38:00* Test Item Value Reference Range Interpretation Comments Urine pH (test code = 83081-2) 6 5-7 [facility] CenterUrine Leukocyte Vyyslquk4159-60-87 18:38:00* Test Item Value Reference Range Interpretation Comments Urine Leukocyte Esterase (test code = 97308-6) NEGATIVE NEGATIV E [facility] CenterUrine Uisudcy2386-45-03 18:38:00* Test Item Value Reference Range Interpretation Comments Urine Nitrite (test code = 20512-4) NEGATIVE NEGATIVE [facility] CenterUrine Xlqqetc8390-06-37 18:38:00* Test Item Value Reference Range Interpretation Comments Urine Protein (test code = 59532-5) NEGATIVE NEGATIVE [facility] Glucose (UA)2019-01-11 18:38:00* Test Item Value Reference Range Interpretation Comments Urine Glucose (UA) (test code = 37265-2) 3+ NEGATIVE [facility] CenterUrine Bnolxjf7474-93-94 18:38:00* Test Item Value Reference Range Interpretation Comments Urine Ketones (test code = 19769-6) NEGATIVE NEGATIVE [facility] Lxolaczrxwis5628-69-86 18:38:00* Test Item Value Reference Range Interpretation Comments Urine Urobilinogen (test code = 36164-7) 0.2 0.2-1 [facility] Oojnrgtui2511-58-68 18:38:00* Test Item Value Reference Range Interpretation Comments Urine Bilirubin (test code = 1977-8) NEGATIVE NEGATIVE [facility] Rrbwc6986-46-16 18:38:00* Test Item Value Reference Range Interpretation Comments Urine Blood (test code = 79373-5) NEGATIVE NEGATIVE [facility] CenterProthrombin Pxne0932-57-27 18:32:00* Test Item Value Reference Range Interpretation Comments Prothrombin Time (test code = 5902-2) 12.7 11.9-14.5 [facility] CenterProthromb Time International Ratio 2019-01-11 18:32:00* Test Item Value Reference Range Interpretation Comments Prothromb Time International Ratio (test code = 6301-6) 0.91 Oral Anticoagulant Therapy INR Values:1. Low Intensity Therapy 1.5 - 2.02 . Moderate Intensity Therapy 2.0 - 3.03. High Intensity Therapy(1) 2.5 - 3. 54. High Intensity Therapy(2) 3.0 - 4.05. Panic Value INR > 5.0 [facility] CenterActivated Partial Thromboplast Time 2019-01-11 18:32:00* Test Item Value Reference Range Interpretation Comments Activated Partial Thromboplast Time (test code = 42963-8) 24.1 23.8-35.5 [facility] CenterProthrombin Pnil9573-34-10 18:32:00* Test Item Value Reference Range Interpretation Comments Prothrombin Time (test code = 5902-2) 12.7 11.9-14.5 [facility] CenterProthromb Time International Ratio 2019-01-11 18:32:00* Test Item Value Reference Range Interpretation Comments Prothromb Time International Ratio (test code = 6301-6) 0.91 Oral Anticoagulant Therapy INR Values:1. Low Intensity Therapy 1.5 - 2.02 . Moderate Intensity Therapy 2.0 - 3.03. High Intensity Therapy(1) 2.5 - 3. 54. High Intensity Therapy(2) 3.0 - 4.05. Panic Value INR > 5.0 [facility] CenterActivated Partial Thromboplast Time 2019-01-11 18:32:00* Test Item Value Reference Range Interpretation Comments Activated Partial Thromboplast Time (test code = 24635-5) 24.1 23.8-35.5 [facility] CenterProthrombin Twqz7519-68-42 18:32:00* Test Item Value Reference Range Interpretation Comments Prothrombin Time (test code = 5902-2) 12.7 11.9-14.5 [facility] CenterProthromb Time International Ratio 2019-01-11 18:32:00* Test Item Value Reference Range Interpretation Comments Prothromb Time International Ratio (test code = 6301-6) 0.91 Oral Anticoagulant Therapy INR Values:1. Low Intensity Therapy 1.5 - 2.02 . Moderate Intensity Therapy 2.0 - 3.03. High Intensity Therapy(1) 2.5 - 3. 54. High Intensity Therapy(2) 3.0 - 4.05. Panic Value INR > 5.0 [facility] CenterActivated Partial Thromboplast Time 2019-01-11 18:32:00* Test Item Value Reference Range Interpretation Comments Activated Partial Thromboplast Time (test code = 45272-0) 24.1 23.8-35.5 [facility] CenterProthrombin Fnvv9976-81-88 18:32:00* Test Item Value Reference Range Interpretation Comments Prothrombin Time (test code = 5902-2) 12.7 11.9-14.5 [facility] CenterProthromb Time International Ratio 2019-01-11 18:32:00* Test Item Value Reference Range Interpretation Comments Prothromb Time International Ratio (test code = 6301-6) 0.91 Oral Anticoagulant Therapy INR Values:1. Low Intensity Therapy 1.5 - 2.02 . Moderate Intensity Therapy 2.0 - 3.03. High Intensity Therapy(1) 2.5 - 3. 54. High Intensity Therapy(2) 3.0 - 4.05. Panic Value INR > 5.0 [facility] CenterActivated Partial Thromboplast Time 2019-01-11 18:32:00* Test Item Value Reference Range Interpretation Comments Activated Partial Thromboplast Time (test code = 30520-5) 24.1 23.8-35.5 [facility] CenterProthrombin Xfbq6059-43-67 18:32:00* Test Item Value Reference Range Interpretation Comments Prothrombin Time (test code = 5902-2) 12.7 11.9-14.5 [facility] CenterProthromb Time International Ratio 2019-01-11 18:32:00* Test Item Value Reference Range Interpretation Comments Prothromb Time International Ratio (test code = 6301-6) 0.91 Oral Anticoagulant Therapy INR Values:1. Low Intensity Therapy 1.5 - 2.02 . Moderate Intensity Therapy 2.0 - 3.03. High Intensity Therapy(1) 2.5 - 3. 54. High Intensity Therapy(2) 3.0 - 4.05. Panic Value INR > 5.0 [facility] CenterActivated Partial Thromboplast Time 2019-01-11 18:32:00* Test Item Value Reference Range Interpretation Comments Activated Partial Thromboplast Time (test code = 04183-6) 24.1 23.8-35.5 [facility] CenterProthrombin Bfth7004-37-51 18:32:00* Test Item Value Reference Range Interpretation Comments Prothrombin Time (test code = 5902-2) 12.7 11.9-14.5 [facility] CenterProthromb Time International Ratio 2019-01-11 18:32:00* Test Item Value Reference Range Interpretation Comments Prothromb Time International Ratio (test code = 6301-6) 0.91 Oral Anticoagulant Therapy INR Values:1. Low Intensity Therapy 1.5 - 2.02 . Moderate Intensity Therapy 2.0 - 3.03. High Intensity Therapy(1) 2.5 - 3. 54. High Intensity Therapy(2) 3.0 - 4.05. Panic Value INR > 5.0 [facility] CenterActivated Partial Thromboplast Time 2019-01-11 18:32:00* Test Item Value Reference Range Interpretation Comments Activated Partial Thromboplast Time (test code = 03370-8) 24.1 23.8-35.5 [facility] CenterProthrombin Jlwa6604-68-01 18:32:00* Test Item Value Reference Range Interpretation Comments Prothrombin Time (test code = 5902-2) 12.7 11.9-14.5 [facility] CenterProthromb Time International Ratio 2019-01-11 18:32:00* Test Item Value Reference Range Interpretation Comments Prothromb Time International Ratio (test code = 6301-6) 0.91 Oral Anticoagulant Therapy INR Values:1. Low Intensity Therapy 1.5 - 2.02 . Moderate Intensity Therapy 2.0 - 3.03. High Intensity Therapy(1) 2.5 - 3. 54. High Intensity Therapy(2) 3.0 - 4.05. Panic Value INR > 5.0 [facility] CenterActivated Partial Thromboplast Time 2019-01-11 18:32:00* Test Item Value Reference Range Interpretation Comments Activated Partial Thromboplast Time (test code = 82119-5) 24.1 23.8-35.5 [facility] CenterCHEST 2 ZQLWH9901-56-73 17:48:00 [facility] [address] [place] [id number] Patient Name: KALYANI TALAVERA MR #: [id number] : 1955 Age/Sex: 63/F Req #: [id number] [facility] Physician: Ordered by: BOYD NICHOLS NP Report #: [id number] Location: ER Room/Bed: Procedure: [id number] D X/CHEST 2 VIEWS Exam Date: 01/10/19 Exam Time: 1724 REPORT STATUS: Signed EXAMINATIO N: CHEST 2 VIEWS INDICATION: Hyperglycemia crackles bases 85937 620 1724 COMPARISON: Chest x-ray 07/01/2018 FINDINGS: [...] on 01/10/191749 COPY T O: BOYD NICHOLS NP B-Type Natriuretic Hfbwoix3710-37-11 17:30:00* Test Item Value Reference Range Interpretation Comments B-Type Natriuretic Peptide (test code = 61295-4) 24.4 0-100 [facility] CenterB-Type Natriuretic Rhtnlpm6342-46-26 17:30:00* Test Item Value Reference Range Interpretation Comments B-Type Natriuretic Peptide (test code = 96264-9) 24.4 0-100 [facility] CenterUrine KFC9837-50-10 17:03:00* Test Item Value Reference Range Interpretation Comments Urine WBC (test code = 5821-4) 0-5 0-5 [facility] CenterUrine NQI8966-34-57 17:03:00* Test Item Value Reference Range Interpretation Comments Urine RBC (test code = 71056-0) NONE 0-5 [facility] CenterUrine Isxorkdx4584-11-80 17:03:00* Test Item Value Reference Range Interpretation Comments Urine Bacteria (test code = 83324-4) MODERATE NONE H [facility] CenterUrine Epithelial Xxnax3388-50-40 17:03:00 * Test Item Value Reference Range Interpretation Comments Urine Epithelial Cells (test code = 46555-5) MANY NONE [facility] CenterUrine Nqkll5720-70-73 17:00:00* Test Item Value Reference Range Interpretation Comments Urine Color (test code = 5778-6) YELLOW YELLOW [facility] CenterUrine Kcmfnfe5947-02-19 17:00:00* Test Item Value Reference Range Interpretation Comments Urine Clarity (test code = 96198-2) CLEAR CLEAR [facility] CenterUrine Specific Iwlulkr8670-44-92 17:00:00 * Test Item Value Reference Range Interpretation Comments Urine Specific Harmony (test code = 5811-5) 1.020 1.010-1.02 5 [facility] CenterUrine [id number] 17:00:00* Test Item Value Reference Range Interpretation Comments Urine pH (test code = 76951-7) 6 5-7 [facility] CenterUrine Leukocyte Uhhvpbbf4244-75-84 17:00:00* Test Item Value Reference Range Interpretation Comments Urine Leukocyte Esterase (test code = 75989-9) NEGATIVE NEGATIV E [facility] CenterUrine Nllasbg8643-70-96 17:00:00* Test Item Value Reference Range Interpretation Comments Urine Nitrite (test code = 01530-0) NEGATIVE NEGATIVE [facility] CenterUrine Nmhntdf4995-76-04 17:00:00* Test Item Value Reference Range Interpretation Comments Urine Protein (test code = 12925-7) NEGATIVE NEGATIVE [facility] Glucose (UA)2019-01-10 17:00:00* Test Item Value Reference Range Interpretation Comments Urine Glucose (UA) (test code = 95975-6) 3+ NEGATIVE [facility] CenterUrine Hrmzfgp3294-35-34 17:00:00* Test Item Value Reference Range Interpretation Comments Urine Ketones (test code = 57015-3) NEGATIVE NEGATIVE [facility] Wjwthhsndiwg9671-99-90 17:00:00* Test Item Value Reference Range Interpretation Comments Urine Urobilinogen (test code = 57059-2) 0.2 0.2-1 [facility] Xpckiwwmh4545-13-29 17:00:00* Test Item Value Reference Range Interpretation Comments Urine Bilirubin (test code = 1977-8) NEGATIVE NEGATIVE [facility] CenterUrine Krgdh7188-04-04 17:00:00* Test Item Value Reference Range Interpretation Comments Urine Blood (test code = 41490-9) NEGATIVE NEGATIVE [facility] CenterCreatine Kinase ET6494-76-91 16:38:00* Test Item Value Reference Range Interpretation Comments Creatine Kinase MB (test code = 68229-8) 1.60 0-5.0 [facility] CenterTroponin B5709-11-09 16:38:00* Test Item Value Reference Range Interpretation Comments Troponin I (test code = PWY1915) 0.007 0-0.300 [facility]odium Kmaam8235-73-41 16:33:00* Test Item Value Reference Range Interpretation Comments Sodium Level (test code = 2951-2) 135 136-145 L [facility] CenterPotassium Yzjfx9656-44-68 16:33:00* Test Item Value Reference Range Interpretation Comments Potassium Level (test code = 2823-3) 4.9 3.5-5.1 [facility] CenterChloride Aznio0460-51-75 16:33:00* Test Item Value Reference Range Interpretation Comments Chloride Level (test code = 2075-0) 102 98-107 [facility] CenterCarbon Dioxide Zmvcw7692-54-15 16:33:00* Test Item Value Reference Range Interpretation Comments Carbon Dioxide Level (test code = 2028-9) 21 22-29 L [facility] CenterAnion Dzs2612-10-93 16:33:00* Test Item Value Reference Range Interpretation Comments Anion Gap (test code = 98759-3) 16.9 8-16 H [facility] CenterBlood Urea Jwlbrhry9362-04-60 16:33:00* Test Item Value Reference Range Interpretation Comments Blood Urea Nitrogen (test code = 3094-0) 31 7-26 H [facility] CenterCreatinine2019-06-20 16:33:00* Test Item Value Reference Range Interpretation Comments Creatinine (test code = 2160-0) 1.16 0.57-1.11 H [facility] CenterBUN/Creatinine Wuxhc5471-19-97 16:33:00* Test Item Value Reference Range Interpretation Comments BUN/Creatinine Ratio (test code = 3097-3) 27 6-25 H [facility] CenterEstimat Glomerular Filtration Rate 2019-01-10 16:33:00* Test Item Value Reference Range Interpretation Comments Estimat Glomerular Filtration Rate (test code = 860406000) 47 >60 L Ranges were taken from the National Kidney Disease Education Program and the [facility] [employer] literature.Reference ranges:60 or greater: Vxttip22-02 ( for 3 consecutive months): Chronic kidney disease 15 or less: Kidney failureMission Regional Medical CenterGlucose Fgkjr8194-51-85 16:33:00* Test Item Value Reference Range Interpretation Comments Glucose Level (test code = ZSI1718) 326 74-118 H [facility] CenterCalcium Ikagf8029-77-66 16:33:00* Test Item Value Reference Range Interpretation Comments Calcium Level (test code = 59345-4) 9.7 8.4-10.2 [facility] CenterTotal Iamzrvksw6611-26-71 16:33:00* Test Item Value Reference Range Interpretation Comments Total Bilirubin (test code = 1975-2) 0.3 0.2-1.2 [facility] CenterAspartate Amino Transf (AST/SGOT) 2019-01-10 16:33:00* Test Item Value Reference Range Interpretation Comments Aspartate Amino Transf (AST/SGOT) (test code = Aspartate Amino Transf (AST/SGOT)) 19 5-34 [facility] CenterAlanine Aminotransferase (ALT/SGPT) 2019-01-10 16:33:00* Test Item Value Reference Range Interpretation Comments Alanine Aminotransferase (ALT/SGPT) (test code = 1742-6) 22 0-55 [facility] CenterTotal Chhupyt0897-69-16 16:33:00* Test Item Value Reference Range Interpretation Comments Total Protein (test code = 2885-2) 7.1 6.5-8.1 [facility] CenterAlbumin2019-06-20 16:33:00* Test Item Value Reference Range Interpretation Comments Albumin (test code = 1751-7) 3.5 3.5-5.0 [facility] CenterGlobulin2019-06-20 16:33:00* Test Item Value Reference Range Interpretation Comments Globulin (test code = 55642-2) 3.6 2.3-3.5 H [facility] CenterAlbumin/Globulin Tupja4581-33-12 16:33:00 * Test Item Value Reference Range Interpretation Comments Albumin/Globulin Ratio (test code = 1759-0) 1.0 0.8-2.0 [facility] CenterAlkaline Cgmygzqpfvn6480-64-86 16:33:00* Test Item Value Reference Range Interpretation Comments Alkaline Phosphatase (test code = 6768-6) 81 40-150 [facility] CenterCreatine Nglheo8496-11-49 16:33:00* Test Item Value Reference Range Interpretation Comments Creatine Kinase (test code = 2157-6) 35 29-168 [facility] CenterWhite Blood Uuthq8896-29-21 16:22:00* Test Item Value Reference Range Interpretation Comments White Blood Count (test code = 6690-2) 5.88 4.8-10.8 [facility] CenterRed Blood Liwmy3810-81-59 16:22:00* Test Item Value Reference Range Interpretation Comments Red Blood Count (test code = 789-8) 5.19 3.6-5.1 H [facility] CenterHemoglobin2019-06-20 16:22:00* Test Item Value Reference Range Interpretation Comments Hemoglobin (test code = 07805-5) 13.0 12.0-16.0 [facility] CenterHematocrit2019-06-20 16:22:00* Test Item Value Reference Range Interpretation Comments Hematocrit (test code = 4544-3) 42.1 34.2-44.1 [facility] CenterMean Corpuscular Ivgkco3026-84-45 16:22:00* Test Item Value Reference Range Interpretation Comments Mean Corpuscular Volume (test code = 787-2) 81.1 81-99 [facility] [facility] [id number] 16:22:00* Test Item Value Reference Range Interpretation Comments Mean Corpuscular Hemoglobin (test code = 785-6) 25.0 28-32 L [facility] Concent 2019-01-10 16:22:00* Test Item Value Reference Range Interpretation Comments Mean Corpuscular Hemoglobin Concent (test code = 786-4) 30.9 31-35 L [facility] [id number] 16:22:00* Test Item Value Reference Range Interpretation Comments Red Cell Distribution Width (test code = 80364-8) 15.0 11.7 -14.4 H [facility] CenterPlatelet [id number] 16:22:00* Test Item Value Reference Range Interpretation Comments Platelet Count (test code = 777-3) 151 140-360 [facility]ils (%) (Auto)2019-01-10 16:22:00 * Test Item Value Reference Range Interpretation Comments Neutrophils (%) (Auto) (test code = 46012-6) 66.5 38.7-80.0 [facility]Lymphocytes (%) (Auto)2019-01-10 16:22:00 * Test Item Value Reference Range Interpretation Comments Lymphocytes (%) (Auto) (test code = 736-9) 24.0 18.0-39.1 [facility] (%) (Auto)2019-01-10 16:22:00* Test Item Value Reference Range Interpretation Comments Monocytes (%) (Auto) (test code = 5905-5) 5.1 4.4-11.3 [facility]ophils (%) (Auto)2019-01-10 16:22:00 * Test Item Value Reference Range Interpretation Comments Eosinophils (%) (Auto) (test code = 713-8) 2.7 0.0-6.0 [facility] (%) (Auto)2019-01-10 16:22:00* Test Item Value Reference Range Interpretation Comments Basophils (%) (Auto) (test code = 706-2) 1.0 0.0-1.0 [facility] CenterIM GRANULOCYTES %2019-01-10 16:22:00* Test Item Value Reference Range Interpretation Comments IM GRANULOCYTES % (test code = IM GRANULOCYTES %) 0.7 0.0- 1.0 [facility] CenterNeutrophils # (Auto)2019-01-10 16:22:00* Test Item Value Reference Range Interpretation Comments Neutrophils # (Auto) (test code = 751-8) 3.9 2.1-6.9 [facility] CenterLymphocytes # (Auto)2019-01-10 16:22:00* Test Item Value Reference Range Interpretation Comments Lymphocytes # (Auto) (test code = 00463-0) 1.4 1.0-3.2 [facility] # (Auto)2019-01-10 16:22:00* Test Item Value Reference Range Interpretation Comments Monocytes # (Auto) (test code = 742-7) 0.3 0.2-0.8 [facility]Eosinophils # (Auto)2019-01-10 16:22:00* Test Item Value Reference Range Interpretation Comments Eosinophils # (Auto) (test code = 711-2) 0.2 0.0-0.4 [facility]ophils # (Auto)2019-01-10 16:22:00* Test Item Value Reference Range Interpretation Comments Basophils # (Auto) (test code = 704-7) 0.1 0.0-0.1 [facility] CenterAbsolute Immature Granulocyte (auto 2019-01-10 16:22:00* Test Item Value Reference Range Interpretation Comments Absolute Immature Granulocyte (auto (joseph t code = Absolute Immature Granulocyte (auto) 0.04 0-0.1 [facility] CenterGLUBED2019-06-15 03:55:00* Test Item Value Reference Range Interpretation Comments GLUBED (test code = GLUBED) 370 mg/dL 74-106 H Performed by certified drill press operator for metal at [facility] [id number] 03:55:00* Test Item Value Reference Range Interpretation Comments GLUBED (test code = GLUBED) 358 mg/dL 74-106 H Performed by certified drill press operator for metal at [facility] BASIC METABOLIC [id number] 03:09:00* Test Item Value Reference Range Interpretation [...] CA) 8.1 mg/dL 8.5-10.1 L HEPATIC FUNCTION [id number] 03:09:00* Test Item Value Reference Range Interpretation [...] reference range due to change in reagent. [id number] 03:09:00* Test Item Value Reference Range Interpretation Comments TROPONIN-I (test code = TROPI) <0.015 ng/mL 0-0.045 N BASIC METABOLIC [id number] 03:01:00* Test Item Value Reference Range Interpretation [...] code = CA) mg/dL 8.5-10.1 HEPATIC FUNCTION [id number] 03:01:00* Test Item Value Reference Range Interpretation [...] TOTAL (test code = ALKP) IUnit/L 45-117 [id number] 03:01:00* Test Item Value Reference Range Interpretation Comments TROPONIN-I (test code = TROPI) ng/mL 0-0.045 CBC W/AUTO [id number] 02:56:00* Test Item Value Reference Range Interpretation [...] (test code = MDIFF) NO CBC W/AUTO [id number] 02:51:00* Test Item Value Reference Range Interpretation [...] (test code = BA#) K/mm3 0.0-0.2 URINALYSIS [id number] 01:33:00* Test Item Value Reference Range Interpretation [...] Urine Source? Clean Catch- XR CHEST 1 [id number] 01:00:00 FAX: Amish OlivoSukhdevSonamChris [phone] [place]: St: REG FAX: Vince Jones DO Name: KALYANI TALAVERA [facility] : 1955 Age/S: 63/F [address] [facility] Unit #: [id number] Loc: [place] [address] Phys: Vince Jones DO Acct: [id number] Dis Date: Status: REG ER PHONE #: [phone] Exam Date: 01/05/2019 0045 FAX #: [phone] Reason: Altered Mental Status EXAMS: CPT CODE: [id number] XR CHEST 1 V 58008 LOCATION: Q15 HISTORY: 63-year-old female who presents with alteration of awareness. COMMENT: A frontal chest radiograph was obtained at 12:44 a.m., and compared to study of [facility] 2018. Central vascular congestion pattern with surrounding [...] Nur MD; Vince Jones DO Technologist: RT ROBERT(Megan) Yisel Simpson ate/Time/By: 01/05/2019 (010) : By: [email or web address] Orig Print D/T: S: 12/22 (0106) PAGE 1 Signed Jose charly Santizo XR CHEST 1 [id number] 01:00:00 FAX: Amish OlivoSukhdevSonamChris [phone] [place]: St: DEP FAX: Vince Jones DO Name: KALYANI TALAVERA [facility] : 1955 Age/S: 63/F [address] [facility] Unit #: [id number] Loc: [place] [address] Phys: Vince Jones DO Acct: [id number] Dis Date: Status: DEP ER PHONE #: [phone] Exam Date: 01/05/2019 0045 FAX #: [phone] Reason: Altered Mental Status EXAMS: CPT CODE: [id number] XR CHEST 1 V 56349 LOCATION: Q15 HISTORY: 63-year-old female who presents with alteration of awareness. COMMENT: A frontal chest radiograph was obtained at 12:44 a.m., and compared to study of [facility] 2018. Central vascular congestion pattern with surrounding [...] Nur MD; Vince Jones DO Technologist: RT ROBERT(Megan) Trnjose Simpson ate/Time/By: 01/05/2019 (99) : By: [email or web address] Orig Print D/T: S: 12/22 (0103) PAGE 1 Signed Jose parks - XR CHEST 1 [id number] 01:00:00 FAX: Amish Nur Si [phone] [place]: St: DEP FAX: Vince Jones DO Name: KALYANI TALAVERA [facility] : 1955 Age/S: 63/F [address] [facility] Unit #: [id number] Loc: [place] [address] Phys: Vince Jones DO Acct: [id number] Dis Date: Status: DEP ER PHONE #: [phone] Exam Date: 01/05/2019 0045 FAX #: [phone] Reason: Altered Mental Status EXAMS: CPT CODE: [id number] XR CHEST 1 V 05973 LOCATION: Q15 HISTORY: 63-year-old female who presents with alteration of awareness. COMMENT: A frontal chest radiograph was obtained at 12:44 a.m., and compared to study of [facility] 2018. Central vascular congestion pattern with surrounding [...] Nur MD; Vince Jones DO Technologist: RT ROBERT(Megan) Trnscrd Calvin ate/Time/By: 01/05/2019 (0100) : By: [email or web address] Orig Print D/T: S: 12/22 (0103) PAGE 1 Signed Repor t - CT HEAD/BRAIN W/O [id number] 00:55:00 Name: KALYANI TALAVERA [facility] : 1955 Age/S: 63 / F [address] Unit #: [id number] Loc: [place] [address] Phys: Vince Jones DO Acct: [id number] Dis Date: Status: REG ER PHONE #: Exam Date: 01/05/201949 FAX #: [phone] Reason: Altered Mental Status EXAMS: CPT CODE: [id number] CT HEAD/BRAIN W/O CONT 12669 EXAM: - CT HEAD/BRAIN W/O CONT Location [...] 1 Signed Report (CONTINUED) Name: KALYANI TALAVERA [facility] : 1955 Age/S: 63 / F [address] Unit #: [id number] Loc: [place] [address] Phys: RobertVince Charly DONIS Acct: [id number] Dis Date: Status: REG ER PHONE #: [phone] Exam Date: 01/05/2019 0050 FAX #: [phone] Reason: Altered Mental Status EXAMS: CPT CODE: [id number] CT HEAD/BRAIN W/O CONT 30772 <Continued> CC: Lucille Nur MD; Vince Jones DO Technologist:Faizan Adame, RT(R)(CT) CTDI: DLP: Trnscb Date/Time: 01/05/2019 (005) [email or web address] Orig Print D/T: S: 01/05/2019 (0058) PAGE 2 Signed Report - CT HEAD/BRAIN W/O [id number] 00:55:00 Name: KALYANI TALAVERA [facility] : 1955 Age/S: 63 / F [address] Unit #: [id number] Loc: [place] [address] Phys: Vince Jones DO Acct: [id number] Dis Date: Status: DEP ER PHONE #: [phone] Exam Date: 01/05/2019 0050 FAX #: [phone] Reason: Altered Mental Status EXAMS: CPT CODE: [id number] CT HEAD/BRAIN W/O CONT 49676 EXAM: - CT HEAD/BRAIN W/O CONT Location [...] 1 Signed Report (CONTINUED) Name: KALYANI TALAVERA [facility] : 1955 Age/S: 63 / F [address] Unit #: [id number] [place] [address] Phys: Vince Jones DO Acct: [id number] Dis Date: Status: DEP ER PHONE #: [phone] Exam Date: 01/05/2019 005 FAX #: [phone] Reason: Altered Mental Status EXAMS: CPT CODE: [id number] CT HEAD/BRAIN W/O CONT 77529 <Continued> CC: Lucille Nur MD; Vince Jones DO Technologist:Faizan Adame, RT(R)(CT) CTDI: DLP: Trnscb Date/Time: 01/05/2019 (005) [email or web address] Orig Print D/T: S: 01/05/2019 (005) PAGE 2 Signed Report - CT HEAD/BRAIN W/O [id number] 00:55:00 Name: KALYANI TALAVERA [facility] : 1955 Age/S: 63 / F [address] [facility] Unit #: [id number] [place]: [place] [address] Phys: Vince Jones DO Acct: [id number] Dis Date: Status: DEP ER PHONE #: [phone] Exam Date: 01/05/201949 FAX #: [phone] Reason: Altered Mental Status EXAMS: CPT CODE: [id number] CT HEAD/BRAIN W/O CONT 51260 EXAM: - CT HEAD/BRAIN W/O CONT Location [...] 1 Signed Report (CONTINUED) Name: KALYANI TALAVERA [facility] : 1955 Age/S: 63 / F [address] [facility] Unit #: [id number] Loc: [place] [address] Phys: Vince Jones DO Acct: [id number] Dis Date: Status: [facility] ER PHONE #: [phone] Exam Date: 01/05/2019 0050 FAX #: [phone] Reason: Altered Mental Status EXAMS: CPT CODE: [id number] CT HEAD/BRAIN W/O CONT 20722 <Continued> CC: Lucille Nur MD; Vince Jones DO Technologist:Faizan Adame RT(R)(CT) CTDI: DLP: Trnscb Date/Time: 01/05/2019 (0055) [email or web address] Orig Print D/T: S: 01/05/2019 (0058) PAGE 2 Signed Report GASTRIC,[id number] 16:33:00 RUN DATE: 11/16/18 [facility] PAGE 1 RUN TIME: 1633 Specimen Inqui ry RUN USER: INTERFACE PATIENT: KALYANI TALAVERA ACCT #: [id number] LOC: [facility] U #: [id number] AGE/SX: 63/F ROOM: RE11/15/18REG DR: Kb Bradford MD : 57 BED: DIS: STATUS: [place] TLOC: SPEC #: [id number] RECD: 11/15/18141 STATUS: SHREYA REKobi #: [id number] MARILEE: 11/15/18-1299 [facility] DR: Kb Bradford MD ENTERED: 11/15/18-141 SP TYPE: GASTRIC BX OTHR DR: Lucille Torres MDORDERED: GROSS COPIES TO: Lucille Nur MD [address] [place] [address] Kb Bradford Si, MD [address] [address] PROCEDURES: GROSS ( 11/16/18-142) TISSUES: 1. ANTRUM - BX 2. BODY BIOPSY OF STOMA CH CLINICAL HISTORY COLLECTION DATE: 11/15/18 DYSPHAGIA FINAL DIAGNOSIS Gastric antrum, biopsy: SUGGESTIVE OF MILD REACTIVE GA STROPATHY CHANGE NO SIGNIFICANT ACUTE OR CHRONIC INFLAMMATION PRESENT NO AREAS OF MUCOSAL EROSION/ULCERATION NEGATIVE FOR INTESTINAL METAPL DONNA NEGATIVE FOR HELICOBACTER ORGANISMS Gastric body, biopsy: GASTRIC MUCOSA WITH NO DISCRETE PATHOLOGIC ULCERATION RRB/sm D [phone], 95843 CONTINUED ON NEXT PAGE RUN DATE: 11/16/18 [place] - Lab PAGE 2 RUN TIME: 1633 Specimen Inquiry RUN USER: INTERFACE SPEC #: [id number] PATIENT: KHANH TALAVERA #[id number] (Continued) MACROSC OPIC The first specimen is [...] cm, submitted as (2). GROSS PERFORMED AT [facility] [address] [place] [address] [phone] MICROSCOPIC All of the stains, inc luding any controls performed, stain appropriately. MICROSCOPIC PERFORMED AT [facility] [address] [place] [address] [phone] PERFORMING SITE Diagnosis perf ormed at: [facility]ology Cons YANETH aceves [address] [place] [address] [phone] Signed SIGNATURE ON FILE Tristan Markham in 11/16/18 1633 * * END OF REPORT [id number] 06:50:00* Test Item Value Reference Range Interpretation Comments GLUBED (test code = GLUBED) 292 mg/dL 74-106 H Performed by certified drill press operator for metal at [facility] - XR RIBS UNI 2 V [id number] 14:33:00 FAX: Amish Nur Si [phone] [place]: O St: REG Name: KALYANI CATES [facility] : [birth year] Age/S: 63/F [address] [facility] Unit #: [id number] Loc: [place] [address] Phys: Chris Nur MD Acct: [id number] Dis Date: Status: REG CLI PHONE #: [phone] Exam Date: 11/09/2018 1220 FAX #: [phone] Reason: PAIN EXAMS: CPT CODE: [id number] XR RIBS UNI [address] [place] [address] HISTORY: Pain. NINA RISON: Chest x-ray from October 30, 2018. Right rib series. No acute fracture of the right ribs. Study slightly limited due to un derpenetrated technique. IMPRESSION: No right rib fracture. Study is limited due to suboptimal technique. Correlate ks th bone scan for further evaluation as clinically indicated. at 1439 Reported and signed by: Solomon Chowdhury M.D. CC: Lucille Nur MD Technologist: Claire santos RT(R) Trnscrd Date/Time/By: 11/09/2018 (8032) : By: [email or web address] Orig Print D/T: S: 11/09/2018 (8483) PAGE 1 Signed Report [id number] 17:05:00* Test Item Value Reference Range Interpretation Comments GLUBED (test code = GLUBED) 274 mg/dL 74-106 H Performed by certified drill press operator for metal at [facility] [id number] 11:39:00* Test Item Value Reference Range Interpretation Comments GLUBED (test code = GLUBED) 284 mg/dL 74-106 H Performed by certified drill press operator for metal at [facility] [id number] 07:48:00* Test Item Value Reference Range Interpretation Comments GLUBED (test code = GLUBED) 285 mg/dL 74-106 H Performed by certified drill press operator for metal at [facility] [id number] 20:08:00* Test Item Value Reference Range Interpretation Comments GLUBED (test code = GLUBED) 252 mg/dL 74-106 H Performed by certified drill press operator for metal at [facility] [id number] 16:09:00* Test Item Value Reference Range Interpretation Comments GLUBED (test code = GLUBED) 329 mg/dL 74-106 H Performed by certified drill press operator for metal at [facility] BASIC METABOLIC [id number] 12:51:00* Test Item Value Reference Range Interpretation [...] CA) 8.6 mg/dL 8.5-10.1 N BASIC METABOLIC [id number] 12:40:00* Test Item Value Reference Range Interpretation [...] CALCIUM (test code = CA) mg/dL 8.5-10.1 [id number] 10:39:00* Test Item Value Reference Range Interpretation Comments GLUBED (test code = GLUBED) 281 mg/dL 74-106 H Performed by certified drill press operator for metal at [facility] [id number] 07:54:00* Test Item Value Reference Range Interpretation Comments GLUBED (test code = GLUBED) 299 mg/dL 74-106 H Performed by certified drill press operator for metal at [facility] [id number] 21:58:00* Test Item Value Reference Range Interpretation Comments TROPONIN-I (test code = TROPI) <0.015 ng/mL 0-0.045 N SPECIMEN COMMENTS: [id number] 20:26:00* Test Item Value Reference Range Interpretation Comments GLUBED (test code = GLUBED) 340 mg/dL 74-106 H Performed by certified drill press operator for metal at [facility] [id number] 17:09:00* Test Item Value Reference Range Interpretation Comments GLUBED (test code = GLUBED) 370 mg/dL 74-106 H Performed by certified drill press operator for metal at [facility] [id number] 10:49:00* Test Item Value Reference Range Interpretation Comments GLUBED (test code = GLUBED) 351 mg/dL 74-106 H Performed by certified drill press operator for metal at [facility] [id number] 09:54:00* Test Item Value Reference Range Interpretation Comments GLUBED (test code = GLUBED) 304 mg/dL 74-106 H Performed by certified drill press operator for metal at [facility] [id number] 09:20:00* Test Item Value Reference Range Interpretation Comments TROPONIN-I (test code = TROPI) <0.015 ng/mL 0-0.045 N COMMENTS TO LINE COOK: COLLECT 3 HOURS AFTER PREVIOUS [id number] 03:55:00* Test Item Value Reference Range Interpretation Comments TROPONIN-I (test code = TROPI) <0.015 ng/mL 0-0.045 N COMMENTS TO LINE COOK: COLLECT 3 HOURS AFTER PREVIOUS SAMPLECBC W/AUTO [id number] 01:32:00* Test Item Value Reference Range Interpretation [...] = MDIFF) NO, ONLY SCAN NEEDED DIFFERENTIAL [id number] 01:32:00* Test Item Value Reference Range Interpretation Comments STAIN ACCEPTABILITY (test code = STN ACCEPTABLE) STAIN ACCEPTABLE POLYCHROMASIA (test code = POLC) 1+ HYPOCHROMIA (test code = HYPO) 1+ ANISOCYTOSIS (test code = ANISO) 1+ MICROCYTOSIS (test code = MICR) 1+ PLATELET ESTIMATE (test code = PLTEST) ADEQUATE PLATELET MORPHOLOGY (test code = PLTMORPH) NORMAL URINALYSIS [id number] 01:10:00* Test Item Value Reference Range Interpretation [...] SEEN #/HPF NONE Urine Source? Clean CatchURINALYSIS [id number] 01:06:00* Test Item Value Reference Range Interpretation [...] per HPF NONE Urine Source? Clean CatchURINALYSIS [id number] 01:03:00* Test Item Value Reference Range Interpretation [...] BACU) per HPF NONE Urine Source? Clean [id number] 00:46:00* Test Item Value Reference Range Interpretation Comments GLUBED (test code = GLUBED) 415 mg/dL 74-106 H Performed by certified drill press operator for metal at [facility] VENOUS BLOOD [id number] 23:47:00* Test Item Value Reference Range Interpretation [...] METHGB) 0.4 % 0.0-1.50 N COMPREHENSIVE METABOLIC [id number] 23:25:00* Test Item Value Reference Range Interpretation [...] 537 mg/dL 74-106 Re sults called to [id number] by ELVIA1 10/30/18 2325Critical results verified and [...] reference range due to change in reagent. [id number] 23:25:00* Test Item Value Reference Range Interpretation Comments LIPASE (test code = LIP) 113 U/L 73.0-393.0 N [id number] 23:25:00* Test Item Value Reference Range Interpretation Comments CKMB (test code = CKMBT) < 1.0 ng/mL 0-6.0 N [id number] 23:25:00* Test Item Value Reference Range Interpretation Comments TROPONIN-I (test code = TROPI) <0.015 ng/mL 0-0.045 N CBC W/AUTO [id number] 23:21:00* Test Item Value Reference Range Interpretation [...] = MDIFF) NO, ONLY SCAN NEEDED DIFFERENTIAL [id number] 23:21:00* Test Item Value Reference Range Interpretation Comments STAIN ACCEPTABILITY (test code = STN ACCEPTABLE) CABOT RINGS (test code = CAB) MORPHOLOGY COMMENT (test code = MOC) PLATELET ESTIMATE (test code = PLTEST) PLATELET MORPHOLOGY (test code = PLTMORPH) CBC W/AUTO [id number] 23:21:00* Test Item Value Reference Range Interpretation [...] = MDIFF) NO, ONLY SCAN NEEDED DIFFERENTIAL [id number] 23:21:00* Test Item Value Reference Range Interpretation Comments STAIN ACCEPTABILITY (test code = STN ACCEPTABLE) CABOT RINGS (test code = CAB) MORPHOLOGY COMMENT (test code = MOC) PLATELET ESTIMATE (test code = PLTEST) PLATELET MORPHOLOGY (test code = PLTMORPH) CBC W/AUTO [id number] 23:21:00* Test Item Value Reference Range Interpretation [...] = MDIFF) NO, ONLY SCAN NEEDED DIFFERENTIAL [id number] 23:21:00* Test Item Value Reference Range Interpretation Comments STAIN ACCEPTABILITY (test code = STN ACCEPTABLE) MORPHOLOGY COMMENT (test code = MOC) PLATELET ESTIMATE (test code = PLTEST) PLATELET MORPHOLOGY (test code = PLTMORPH) CBC W/AUTO [id number] 23:20:00* Test Item Value Reference Range Interpretation [...] = MDIFF) NO, ONLY SCAN NEEDED DIFFERENTIAL [id number] 23:20:00* Test Item Value Reference Range Interpretation Comments STAIN ACCEPTABILITY (test code = STN ACCEPTABLE) CABOT RINGS (test code = CAB) MORPHOLOGY COMMENT (test code = MOC) PLATELET ESTIMATE (test code = PLTEST) PLATELET MORPHOLOGY (test code = PLTMORPH) CBC W/AUTO [id number] 23:08:00* Test Item Value Reference Range Interpretation [...] code = BA#) K/mm3 0.0-0.2 COMPREHENSIVE METABOLIC [id number] 23:06:00* Test Item Value Reference Range Interpretation [...] TOTAL (test code = ALKP) IUnit/L 45-117 [id number] 23:06:00* Test Item Value Reference Range Interpretation Comments LIPASE (test code = LIP) U/L 73.0-393.0 [id number] 23:06:00* Test Item Value Reference Range Interpretation Comments CKMB (test code = CKMBT) ng/mL 0-6.0 [id number] 23:06:00* Test Item Value Reference Range Interpretation Comments TROPONIN-I (test code = TROPI) ng/mL 0-0.045 - XR CHEST 2 [id number] 23:03:00 FAX: Amish Nur [phone] [place]: St: REG FAX: Leonora Norton [phone] Name: KALYANI TALAVERA [facility] : 1955 Age/S: 63/F [address] [facility] Unit #: [id number] Loc: [place] [address] Phys: Leonora Goins MD Acct: [id number] Dis Date: Status: REG ER PHONE #: [phone] Exam Date: 10/30/2018 2241 FAX #: [phone] Reason: cp EXAMS: CPT CODE: [id number] XR CHEST 2 V 96432 REASON FOR EXAM: cp Exam Order Date: [...] MD Technologist: Janeen Dunbar Trnscrd Date/Time/By: 10/30/2018 (0992) : By: Ana Orig Print D/T: S: 10/30/2018 (1743) PAGE 1 Signed Report GLUBED 2018-10-12 11:21:00* Test Item Value Reference Range Interpretation Comments GLUBED (test code = GLUBED) 189 mg/dL 74-106 H Performed by certified drill press operator for metal at [facility] [id number] 10:37:00* Test Item Value Reference Range Interpretation Comments GLUBED (test code = GLUBED) 190 mg/dL 74-106 H Performed by certified drill press operator for metal at [facility] [id number] 21:08:00* Test Item Value Reference Range Interpretation Comments GLUBED (test code = GLUBED) 156 mg/dL 74-106 H Performed by certified drill press operator for metal at [facility] [id number] 16:01:00* Test Item Value Reference Range Interpretation Comments GLUBED (test code = GLUBED) 122 mg/dL 74-106 H Performed by certified drill press operator for metal at [facility] [id number] 12:56:00* Test Item Value Reference Range Interpretation Comments GLUBED (test code = GLUBED) 173 mg/dL 74-106 H Performed by certified drill press operator for metal at [facility] [id number] 07:28:00* Test Item Value Reference Range Interpretation Comments GLUBED (test code = GLUBED) 221 mg/dL 74-106 H Performed by certified drill press operator for metal at [facility] [id number] 20:54:00* Test Item Value Reference Range Interpretation Comments GLUBED (test code = GLUBED) 261 mg/dL 74-106 H Performed by certified drill press operator for metal at [facility] [id number] 15:03:00* Test Item Value Reference Range Interpretation Comments GLUBED (test code = GLUBED) 167 mg/dL 74-106 H Performed by certified drill press operator for metal at [facility] [id number] 11:23:00* Test Item Value Reference Range Interpretation Comments GLUBED (test code = GLUBED) 206 mg/dL 74-106 H Performed by certified drill press operator for metal at [facility] BASIC METABOLIC [id number] 07:57:00* Test Item Value Reference Range Interpretation [...] code = CA) 8.5 mg/dL 8.5-10.1 N [id number] 07:29:00* Test Item Value Reference Range Interpretation Comments GLUBED (test code = GLUBED) 239 mg/dL 74-106 H Performed by certified drill press operator for metal at [facility] [id number] 05:00:00* Test Item Value Reference Range Interpretation Comments GLUBED (test code = GLUBED) 234 mg/dL 74-106 H Performed by certified drill press operator for metal at [facility] [id number] 20:10:00* Test Item Value Reference Range Interpretation Comments GLUBED (test code = GLUBED) 204 mg/dL 74-106 H Performed by certified drill press operator for metal at [facility] [id number] 17:08:00* Test Item Value Reference Range Interpretation Comments GLUBED (test code = GLUBED) 243 mg/dL 74-106 H Performed by certified drill press operator for metal at [facility] T4 [id number] 14:42:00* Test Item Value Reference Range Interpretation Comments T4 FREE (test code = T4F) 7.60 ng/dL 0.76-1.46 H THYROID STIMULATING [id number] 14:42:00* Test Item Value Reference Range Interpretation Comments THYROID STIMULATING HORMONE (test code = TSH) 0.812 uIU/mL 0.36-3.7 4 N TSH REFERENCE RANGES: EUTHYROID: 0.35 - 4.3 mIU/mL HYPO : > 5.5 mIU/mL HYPER : < 0.35 mIU/mL T4 [id number] 14:03:00* Test Item Value Reference Range Interpretation Comments T4 FREE (test code = T4F) ng/dL 0.76-1.46 THYROID STIMULATING [id number] 14:03:00* Test Item Value Reference Range Interpretation Comments THYROID STIMULATING HORMONE (test code = TSH) 0.812 uIU/mL 0.36-3.7 4 N TSH REFERENCE RANGES: EUTHYROID: 0.35 - 4.3 mIU/mL HYPO : > 5.5 mIU/mL HYPER : < 0.35 mIU/mL [id number] 12:01:00* Test Item Value Reference Range Interpretation Comments GLUBED (test code = GLUBED) 232 mg/dL 74-106 H Performed by certified drill press operator for metal at [facility] [id number] 07:31:00* Test Item Value Reference Range Interpretation Comments GLUBED (test code = GLUBED) 253 mg/dL 74-106 H Performed by certified drill press operator for metal at [facility] BASIC METABOLIC [id number] 05:59:00* Test Item Value Reference Range Interpretation [...] CA) 8.4 mg/dL 8.5-10.1 L BASIC METABOLIC [id number] 05:56:00* Test Item Value Reference Range Interpretation [...] CALCIUM (test code = CA) mg/dL 8.5-10.1 PAISHE8363-37-94 03:37:00* Test Item Value Reference Range Interpretation Comments GLUBED (test code = GLUBED) 302 mg/dL 74-106 H Performed by certified drill press operator for metal at [facility] T4 [id number] 20:00:00* Test Item Value Reference Range Interpretation Comments T4 FREE (test code = T4F) 0.97 ng/dL 0.76-1.46 N THYROID STIMULATING [id number] 20:00:00* Test Item Value Reference Range Interpretation Comments THYROID STIMULATING HORMONE (test code = TSH) 0.336 uIU/mL 0.36-3.7 4 L TSH REFERENCE RANGES: EUTHYROID: 0.35 - 4.3 mIU/mL HYPO : > 5.5 mIU/mL HYPER : < 0.35 mIU/mL [id number] 19:59:00* Test Item Value Reference Range Interpretation Comments GLYCOSYLATED HEMOGLOBIN (HA1C) (test code = GLYHGB) 9.7 % HbA1 4. 8-6.0 H ESTIMATED AVERAGE GLUCOSE (test code = EAG) 232 MG/DL [id number] 19:43:00* Test Item Value Reference Range Interpretation Comments GLUBED (test code = GLUBED) 301 mg/dL 74-106 H Performed by certified drill press operator for metal at [facility] [id number] 17:38:00* Test Item Value Reference Range Interpretation Comments GLUBED (test code = GLUBED) 242 mg/dL 74-106 H Performed by certified drill press operator for metal at [facility] PGAOYMOR-[id number] 13:43:00* Test Item Value Reference Range Interpretation Comments TROPONIN-I (test code = TROPI) <0.015 ng/mL 0-0.045 N COMMENTS TO LINE COOK: COLLECT 3 HOURS AFTER PREVIOUS [id number] 13:19:00* Test Item Value Reference Range Interpretation Comments GLUBED (test code = GLUBED) 243 mg/dL 74-106 H Performed by certified drill press operator for metal at [facility] EVMYEKAC-[id number] 10:44:00* Test Item Value Reference Range Interpretation Comments TROPONIN-I (test code = TROPI) <0.015 ng/mL 0-0.045 N COMMENTS TO LINE COOK: COLLECT 3 HOURS AFTER PREVIOUS [id number] 08:17:00* Test Item Value Reference Range Interpretation Comments GLUBED (test code = GLUBED) 164 mg/dL 74-106 H Performed by certified drill press operator for metal at [facility] BASIC METABOLIC [id number] 08:09:00* Test Item Value Reference Range Interpretation [...] mg/dL 74-106 LL Re sults called to [id number] by [email or web address] 10/08/18 0807Critical results verified and read back [...] CA) 8.5 mg/dL 8.5-10.1 N HEPATIC FUNCTION [id number] 08:09:00* Test Item Value Reference Range Interpretation [...] reference range due to change in reagent. [id number] 08:09:00* Test Item Value Reference Range Interpretation Comments LIPASE (test code = LIP) 70 U/L 73.0-393.0 L [id number] 08:09:00* Test Item Value Reference Range Interpretation [...] into account the patients history. B-TYPE NATRIURETIC [id number] 06:52:00* Test Item Value Reference Range Interpretation Comments B-TYPE NATRIURETIC PEPTIDE (test code = BNP) 10.07 pgram/mL 0-100 N [id number] 06:43:00* Test Item Value Reference Range Interpretation Comments GLUBED (test code = GLUBED) 36 mg/dL 74-106 LL Performed by certified drill press operator for metal at [facility] URINALYSIS [id number] 06:19:00* Test Item Value Reference Range Interpretation [...] FEW #/LPF FEW Urine Source? Clean CatchLACTIC [id number] 06:15:00* Test Item Value Reference Range Interpretation Comments LACTIC ACID (test code = LACT) 0.9 mmol/L 0.4-1.9 N - XR CHEST 1 [id number] 05:44:00 FAX: Amish Nur [phone] [place]: B St: REG Name: KALYANI CATES [facility] : [birth year] Age/S: 63/F [address] [facility] Unit #: [id number] Loc: [place] [address] Phys: Elena Cedeño MD Acct: [id number] Dis Date: Status: REG ER PHONE #: [phone] Exam Date: 10/08/2018 0531 FAX #: [phone] Reason: CHEST PAIN EXAMS: CPT CODE: [id number] XR CHEST 1 V 91345 HISTORY: Chest pain. Location: C3 COMPARISON:09/18/2017 FINDINGS: There is mild cardiomegaly. There is elevation of the right hemid iaphragm. No pneumothorax. No focal consolidation. No other changes. IMPRESSION: 1. Elevated right hemidiaphragm. Mi ld cardiomegaly. No other acute abnormality. at 0544 Report ed and signed by: Kizzy Dietrich MD CC: Lucille Nur MD Technologist: Marcelino CLEMENTS(R) Trnscrd Date/Time/By: 10/08/2018 (0544) : By: Festus XC2 Orig Print D/T: S: 10/08/2018 (1701) PAGE 1 Signed Report PROTHROMBIN [id number] 05:38:00* Test Item Value Reference Range Interpretation [...] (2.5-3.5) IS PATIENT ON ANTICOAGULANTS? NTHROMBOPLASTIN TIME [id number] 05:38:00* Test Item Value Reference Range Interpretation Comments THROMBOPLASTIN TIME PARTIAL (test code = PTT) 32.9 seconds 25.0-36. 5 N IS PATIENT ON ANTICOAGULANTS? [id number] 05:38:00* Test Item Value Reference Range Interpretation [...] - IS PATIENT ON ANTICOAGULANTS? NCBC W/O [id number] 05:27:00* Test Item Value Reference Range Interpretation [...] MPV) 10.6 fL 6.7-11.0 N ARTERIAL BLOOD [id number] 05:25:00* Test Item Value Reference Range Interpretation [...] 16.4 % vol 18.0-22.0 L CBC W/O [id number] 05:20:00* Test Item Value Reference Range Interpretation [...] VOLUME (test code = MPV) fL 6.7-11.0 [id number] 05:06:00* Test Item Value Reference Range Interpretation Comments GLUBED (test code = GLUBED) 73 mg/dL 74-106 L Performed by certified drill press operator for metal at [facility] FOREARM RIGHT 2 [id number] 20:47:00 [place] [address] Patient Name: KALYANI TALAVERA MR #: [id number] : 1955 Age/Sex: 63/F Req #: [id number] Adm Physician: Ordered by: FLO TOLBERT MD Report #: [id number] Location: ER Room/Bed: Procedure: [id number] DX /FOREARM RIGHT 2 VIEW Exam Date: 07/30/18 Exam Time: 1849 REPORT STATUS: Signed FORE ARM RIGHT 2 [...] 049 COPY TO: FLO TOLBERT MD Bedside Nygwukf5695-81-41 14:02:00 * Test Item Value Reference Range Interpretation Comments Bedside Glucose (test code = 47333-2) 68 70-120 L Meter ID: [id number] [facility] Glucose 2018-07-11 14:02:00* Test Item Value Reference Range Interpretation Comments Bedside Glucose (test code = 17044-5) 68 70-120 L Meter ID: [id number] [facility] Glucose 2018-07-11 14:02:00* Test Item Value Reference Range Interpretation Comments Bedside Glucose (test code = 71916-4) 68 70-120 L Meter ID: [id number] Regional Medical CenterB-Type Natriuretic Bkwtgrg7225-94-11 12:44:00* Test Item Value Reference Range Interpretation Comments B-Type Natriuretic Peptide (test code = 13658-2) 43.1 0-100 [facility] CenterB-[facility] Natriuretic Fwjdnzq6864-19-18 12:44:00* Test Item Value Reference Range Interpretation Comments B-Type Natriuretic Peptide (test code = 44504-4) 43.1 0-100 [facility] CenterCT MAXIO FAC/PARANAS [id number] 12:32:00 [facility] [address] [place] [address] Patient Name: KALYANI TALAVERA MR #: [id number] : 1955 Age/Sex: 63/F Req #: [id number] Adm Physician: Ordered by: ELIESER DAWSON MD Report #: [id number] Location: ER Room/Bed: Procedure: [id number] CT/CT MAXIO FAC/PARANAS WO Exam Date: 07/11/18 [...] COPY TO: ELIESER DAWSON MD CT BRAIN [id number] 12:26:00 [place] [address] Patient Name: KALYANI TALAVERA MR #: [id number] : 1955 Age/Sex: 63/F Req #: [id number] Adm Physician: Ordered by: ELIESER DAWSON MD Report #: [id number] Location: ER Room/Bed: Procedure: [id number] CT/CT BRAIN WO Exam Date: 07/11/18 Exam [...] COPY TO: ELIESER DAWSON MD Lactic Acid [id number] 12:24:00* Test Item Value Reference Range Interpretation Comments Lactic Acid Level (test code = Lactic Acid Level) 7.1 4.5- 19.8 [facility] Zsowd5662-75-38 12:24:00* Test Item Value Reference Range Interpretation Comments Lactic Acid Level (test code = Lactic Acid Level) 7.1 4.5- 19.8 [facility] Lxnuj3661-14-67 12:24:00* Test Item Value Reference Range Interpretation Comments Lactic Acid Level (test code = Lactic Acid Level) 7.1 4.5- 19.8 [facility] CenterLactic Acid Oowzc7268-13-15 12:24:00* Test Item Value Reference Range Interpretation Comments Lactic Acid Level (test code = Lactic Acid Level) 7.1 4.5- 19.8 [facility] Zmvsq1514-03-02 12:24:00* Test Item Value Reference Range Interpretation Comments Lactic Acid Level (test code = Lactic Acid Level) 7.1 4.5- 19.8 [facility] Upvgn2454-90-36 12:24:00* Test Item Value Reference Range Interpretation Comments Lactic Acid Level (test code = Lactic Acid Level) 7.1 4.5- 19.8 [facility] Dcqpf9964-50-04 12:24:00* Test Item Value Reference Range Interpretation Comments Lactic Acid Level (test code = Lactic Acid Level) 7.1 4.5- 19.8 [facility] CenterLactic Acid Gikzo3031-38-90 12:24:00* Test Item Value Reference Range Interpretation Comments Lactic Acid Level (test code = Lactic Acid Level) 7.1 4.5- 19.8 [facility] CenterLactic Acid Svvfg8875-46-19 12:24:00* Test Item Value Reference Range Interpretation Comments Lactic Acid Level (test code = Lactic Acid Level) 7.1 4.5- 19.8 [facility] Acid Mnxwb4972-30-42 12:24:00* Test Item Value Reference Range Interpretation Comments Lactic Acid Level (test code = Lactic Acid Level) 7.1 4.5- 19.8 [facility] CenterCreatine Kinase QG8801-47-11 12:17:00* Test Item Value Reference Range Interpretation Comments Creatine Kinase MB (test code = 36328-4) 2.60 0-5.0 [facility] CenterTroponin C9036-95-39 12:17:00* Test Item Value Reference Range Interpretation Comments Troponin I (test code = MOJ7967) < 0.001 0-0.300 [facility] CenterCreatine Kinase UO5393-43-58 12:17:00* Test Item Value Reference Range Interpretation Comments Creatine Kinase MB (test code = 74167-6) 2.60 0-5.0 [facility] CenterTrprisma health [facility] hospitaln [id number] 12:17:00* Test Item Value Reference Range Interpretation Comments Troponin I (test code = QKH5130) < 0.001 0-0.300 [facility] CenterActivated Partial Thromboplast Time 2018-07-11 12:09:00* Test Item Value Reference Range Interpretation Comments Activated Partial Thromboplast Time (test code = 24825-3) 20.8 23.8-35.[address] [facility] Centerodium Nouoy6343-17-25 12:09:00* Test Item Value Reference Range Interpretation Comments Sodium Level (test code = 2951-2) 141 136-145 [facility] CenterPotassium Ccukl7941-77-63 12:09:00* Test Item Value Reference Range Interpretation Comments Potassium Level (test code = 2823-3) 4.5 3.5-5.1 [facility] CenterChloride Jwdud6104-21-41 12:09:00* Test Item Value Reference Range Interpretation Comments Chloride Level (test code = 2075-0) 110 98-107 H [facility] CenterCarbon Dioxide Rmqps4088-81-39 12:09:00* Test Item Value Reference Range Interpretation Comments Carbon Dioxide Level (test code = 2028-9) 22 22-29 [facility] CenterAnion Qth8192-95-46 12:09:00* Test Item Value Reference Range Interpretation Comments Anion Gap (test code = 07195-2) 13.5 8-16 [facility] CenterBlood Urea Xpvzjnsi9544-10-70 12:09:00* Test Item Value Reference Range Interpretation Comments Blood Urea Nitrogen (test code = 3094-0) 28 7-26 H [facility] CenterCreatinine2018-12-19 12:09:00* Test Item Value Reference Range Interpretation Comments Creatinine (test code = 2160-0) 0.92 0.57-1.11 [facility] CenterBUN/Creatinine Vuxft7380-00-47 12:09:00* Test Item Value Reference Range Interpretation Comments BUN/Creatinine Ratio (test code = 3097-3) 30 6-25 H [facility] CenterEstimat Glomerular Filtration Rate 2018-07-11 12:09:00* Test Item Value Reference Range Interpretation Comments Estimat Glomerular Filtration Rate (test code = 833776941) > 60 >60 Ranges were taken from the National Kidney Disease Education Program and the [facility] [employer] literature.Reference ranges:60 or greater: Dpeydq57-47 ( for 3 consecutive months): Chronic kidney disease 15 or less: Kidney failureMission Regional Medical CenterGlucose Qklbj6774-26-06 12:09:00* Test Item Value Reference Range Interpretation Comments Glucose Level (test code = XOI2102) 62 74-118 L [facility] CenterCalcium Zfbsv9439-03-52 12:09:00* Test Item Value Reference Range Interpretation Comments Calcium Level (test code = 99399-5) 9.2 8.4-10.2 [facility] CenterTotal Rcrwuhjji6830-99-48 12:09:00* Test Item Value Reference Range Interpretation Comments Total Bilirubin (test code = 1975-2) 0.3 0.2-1.2 [facility] CenterAspartate Amino Transf (AST/SGOT) 2018-07-11 12:09:00* Test Item Value Reference Range Interpretation Comments Aspartate Amino Transf (AST/SGOT) (test code = Aspartate Amino Transf (AST/SGOT)) 17 5-34 [facility] CenterAlanine Aminotransferase (ALT/SGPT) 2018-07-11 12:09:00* Test Item Value Reference Range Interpretation Comments Alanine Aminotransferase (ALT/SGPT) (test code = 1742-6) 18 0-55 [facility] CenterTotal Xgyrbtp4527-35-78 12:09:00* Test Item Value Reference Range Interpretation Comments Total Protein (test code = 2885-2) 6.9 6.5-8.1 [facility] CenterAlbumin2018-12-19 12:09:00* Test Item Value Reference Range Interpretation Comments Albumin (test code = 1751-7) 3.6 3.5-5.0 [facility] CenterGlobulin2018-12-19 12:09:00* Test Item Value Reference Range Interpretation Comments Globulin (test code = 93469-3) 3.3 2.3-3.5 [facility] CenterAlbumin/Globulin Dtbgj6186-37-84 12:09:00 * Test Item Value Reference Range Interpretation Comments Albumin/Globulin Ratio (test code = 1759-0) 1.1 0.8-2.0 [facility] CenterAlkaline Jsxevslfikv8095-55-65 12:09:00* Test Item Value Reference Range Interpretation Comments Alkaline Phosphatase (test code = 6768-6) 55 40-150 [facility] CenterCreatine Revkhy9115-69-45 12:09:00* Test Item Value Reference Range Interpretation Comments Creatine Kinase (test code = 2157-6) 71 29-168 [facility] CenterActivated Partial Thromboplast Time 2018-07-11 12:09:00* Test Item Value Reference Range Interpretation Comments Activated Partial Thromboplast Time (test code = 22442-2) 20.8 23.8-35.[address] [facility] Centerodium Bpwmo1208-84-28 12:09:00* Test Item Value Reference Range Interpretation Comments Sodium Level (test code = 2951-2) 141 136-145 [facility] CenterPotassium Hcnjq2346-36-74 12:09:00* Test Item Value Reference Range Interpretation Comments Potassium Level (test code = 2823-3) 4.5 3.5-5.1 [facility] CenterChloride Soqql8641-71-25 12:09:00* Test Item Value Reference Range Interpretation Comments Chloride Level (test code = 2075-0) 110 98-107 H [facility] CenterCarbon Dioxide Drsnh1493-90-22 12:09:00* Test Item Value Reference Range Interpretation Comments Carbon Dioxide Level (test code = 2028-9) 22 22-29 [facility] CenterAnion Trk0875-30-68 12:09:00* Test Item Value Reference Range Interpretation Comments Anion Gap (test code = 57953-5) 13.5 8-16 [facility] CenterBlood Urea Hlrqwpjr9457-22-90 12:09:00* Test Item Value Reference Range Interpretation Comments Blood Urea Nitrogen (test code = 3094-0) 28 7-26 H [facility] CenterCreatinine2018-12-19 12:09:00* Test Item Value Reference Range Interpretation Comments Creatinine (test code = 2160-0) 0.92 0.57-1.11 [facility] CenterBUN/Creatinine Uuekg8785-83-97 12:09:00* Test Item Value Reference Range Interpretation Comments BUN/Creatinine Ratio (test code = 3097-3) 30 6-25 H [facility] CenterEstimat Glomerular Filtration Rate 2018-07-11 12:09:00* Test Item Value Reference Range Interpretation Comments Estimat Glomerular Filtration Rate (test code = 928516601) > 60 >60 Ranges were taken from the National Kidney Disease Education Program and the [facility] literature.Reference ranges:60 or greater: Zxiwas54-26 ( for 3 consecutive months): Chronic kidney disease 15 or less: Kidney failureMission Regional Medical CenterGlucose Dhyrd7407-64-02 12:09:00* Test Item Value Reference Range Interpretation Comments Glucose Level (test code = FDU7703) 62 74-118 L [facility] CenterCalcium Tkhyk2252-23-91 12:09:00* Test Item Value Reference Range Interpretation Comments Calcium Level (test code = 23805-8) 9.2 8.4-10.2 [facility] CenterTotal Nksralqbu7773-46-58 12:09:00* Test Item Value Reference Range Interpretation Comments Total Bilirubin (test code = 1975-2) 0.3 0.2-1.2 [facility] CenterAspartate Amino Transf (AST/SGOT) 2018-07-11 12:09:00* Test Item Value Reference Range Interpretation Comments Aspartate Amino Transf (AST/SGOT) (test code = Aspartate Amino Transf (AST/SGOT)) 17 5-34 [facility] CenterAlanine Aminotransferase (ALT/SGPT) 2018-07-11 12:09:00* Test Item Value Reference Range Interpretation Comments Alanine Aminotransferase (ALT/SGPT) (test code = 1742-6) 18 0-55 [facility] CenterTotal Dkzlsnz7744-47-95 12:09:00* Test Item Value Reference Range Interpretation Comments Total Protein (test code = 2885-2) 6.9 6.5-8.1 [facility] CenterAlbumin2018-12-19 12:09:00* Test Item Value Reference Range Interpretation Comments Albumin (test code = 1751-7) 3.6 3.5-5.0 [facility] CenterGlobulin2018-12-19 12:09:00* Test Item Value Reference Range Interpretation Comments Globulin (test code = 63464-9) 3.3 2.3-3.5 [facility] CenterAlbumin/Globulin Kznoc7424-52-41 12:09:00 * Test Item Value Reference Range Interpretation Comments Albumin/Globulin Ratio (test code = 1759-0) 1.1 0.8-2.0 [facility] CenterAlkaline Spjslpdyvgz0514-86-14 12:09:00* Test Item Value Reference Range Interpretation Comments Alkaline Phosphatase (test code = 6768-6) 55 40-150 [facility] CenterCreatine Hwepoz4887-99-98 12:09:00* Test Item Value Reference Range Interpretation Comments Creatine Kinase (test code = 2157-6) 71 29-168 [facility] CenterActivated Partial Thromboplast Time 2018-07-11 12:09:00* Test Item Value Reference Range Interpretation Comments Activated Partial Thromboplast Time (test code = 75415-5) 20.8 23.8-35.5 L [facility] CenterProthrombin Qsxi0017-94-66 11:59:00* Test Item Value Reference Range Interpretation Comments Prothrombin Time (test code = 5902-2) 13.5 11.9-14.5 [facility] CenterProthromb Time International Ratio 2018-07-11 11:59:00* Test Item Value Reference Range Interpretation Comments Prothromb Time International Ratio (test code = 6301-6) 0.95 Oral Anticoagulant Therapy INR Values:1. Low Intensity Therapy 1.5 - 2.02 . Moderate Intensity Therapy 2.0 - 3.03. High Intensity Therapy(1) 2.5 - 3. 54. High Intensity Therapy(2) 3.0 - 4.05. Panic Value INR > 5.0 [facility] CenterProthrombin Aiug7917-41-34 11:59:00* Test Item Value Reference Range Interpretation Comments Prothrombin Time (test code = 5902-2) 13.5 11.9-14.5 [facility] CenterProthromb Time International Ratio 2018-07-11 11:59:00* Test Item Value Reference Range Interpretation Comments Prothromb Time International Ratio (test code = 6301-6) 0.95 Oral Anticoagulant Therapy INR Values:1. Low Intensity Therapy 1.5 - 2.02 . Moderate Intensity Therapy 2.0 - 3.03. High Intensity Therapy(1) 2.5 - 3. 54. High Intensity Therapy(2) 3.0 - 4.05. Panic Value INR > 5.0 [facility] CenterProthrombin Umne4813-38-72 11:59:00* Test Item Value Reference Range Interpretation Comments Prothrombin Time (test code = 5902-2) 13.5 11.9-14.5 [facility] CenterProthromb Time International Ratio 2018-07-11 11:59:00* Test Item Value Reference Range Interpretation Comments Prothromb Time International Ratio (test code = 6301-6) 0.95 Oral Anticoagulant Therapy INR Values:1. Low Intensity Therapy 1.5 - 2.02 . Moderate Intensity Therapy 2.0 - 3.03. High Intensity Therapy(1) 2.5 - 3. 54. High Intensity Therapy(2) 3.0 - 4.05. Panic Value INR > 5.0 [facility] CenterWhite Blood Gkfmb8226-91-66 11:54:00* Test Item Value Reference Range Interpretation Comments White Blood Count (test code = 6690-2) 6.79 4.8-10.8 [facility] CenterRed Blood Ivjpb3950-33-55 11:54:00* Test Item Value Reference Range Interpretation Comments Red Blood Count (test code = 789-8) 4.38 3.6-5.1 [facility] CenterHemoglobin2018-12-19 11:54:00* Test Item Value Reference Range Interpretation Comments Hemoglobin (test code = 46584-0) 11.4 12.0-16.0 L [facility] CenterHematocrit2018-12-19 11:54:00* Test Item Value Reference Range Interpretation Comments Hematocrit (test code = 4544-3) 38.1 34.2-44.1 [facility] CenterMean Corpuscular Cqvcxh1719-63-18 11:54:00* Test Item Value Reference Range Interpretation Comments Mean Corpuscular Volume (test code = 787-2) 87.0 81-99 [facility] CenterMean Corpuscular Hdxxwskrzu3808-49-37 11:54:00* Test Item Value Reference Range Interpretation Comments Mean Corpuscular Hemoglobin (test code = 785-6) 26.0 28-32 L [facility] CenterMean Corpuscular Hemoglobin Concent 2018-07-11 11:54:00* Test Item Value Reference Range Interpretation Comments Mean Corpuscular Hemoglobin Concent (test code = 786-4) 29.9 31-35 L [facility] CenterRed Cell Distribution Zzwfj8488-99-14 11:54:00* Test Item Value Reference Range Interpretation Comments Red Cell Distribution Width (test code = 05963-7) 16.0 11.7 -14.4 H [facility] CenterPlatelet Vtskt9176-68-37 11:54:00* Test Item Value Reference Range Interpretation Comments Platelet Count (test code = 777-3) 204 140-360 [facility] CenterNeutrophils (%) (Auto)2018-07-11 11:54:00 * Test Item Value Reference Range Interpretation Comments Neutrophils (%) (Auto) (test code = 26484-0) 76.3 38.7-80.0 [facility] CenterLymphocytes (%) (Auto)2018-07-11 11:54:00 * Test Item Value Reference Range Interpretation Comments Lymphocytes (%) (Auto) (test code = 736-9) 10.3 18.0-39.1 L [facility] CenterMonocytes (%) (Auto)2018-07-11 11:54:00* Test Item Value Reference Range Interpretation Comments Monocytes (%) (Auto) (test code = 5905-5) 5.9 4.4-11.3 [facility] CenterEosinophils (%) (Auto)2018-07-11 11:54:00 * Test Item Value Reference Range Interpretation Comments Eosinophils (%) (Auto) (test code = 713-8) 2.7 0.0-6.0 [facility] CenterBasophils (%) (Auto)2018-07-11 11:54:00* Test Item Value Reference Range Interpretation Comments Basophils (%) (Auto) (test code = 706-2) 1.0 0.0-1.0 [facility] CenterIM GRANULOCYTES %2018-07-11 11:54:00* Test Item Value Reference Range Interpretation Comments IM GRANULOCYTES % (test code = IM GRANULOCYTES %) 3.8 0.0- 1.0 H [facility] CenterNeutrophils # (Auto)2018-07-11 11:54:00* Test Item Value Reference Range Interpretation Comments Neutrophils # (Auto) (test code = 751-8) 5.2 2.1-6.9 [facility] CenterLymphocytes # (Auto)2018-07-11 11:54:00* Test Item Value Reference Range Interpretation Comments Lymphocytes # (Auto) (test code = 77925-6) 0.7 1.0-3.2 L [facility] CenterMonocytes # (Auto)2018-07-11 11:54:00* Test Item Value Reference Range Interpretation Comments Monocytes # (Auto) (test code = 742-7) 0.4 0.2-0.8 [facility] CenterEosinophils # (Auto)2018-07-11 11:54:00* Test Item Value Reference Range Interpretation Comments Eosinophils # (Auto) (test code = 711-2) 0.2 0.0-0.4 [facility] CenterBasophils # (Auto)2018-07-11 11:54:00* Test Item Value Reference Range Interpretation Comments Basophils # (Auto) (test code = 704-7) 0.1 0.0-0.1 [facility] CenterAbsolute Immature Granulocyte (auto 2018-07-11 11:54:00* Test Item Value Reference Range Interpretation Comments Absolute Immature Granulocyte (auto (joseph t code = Absolute Immature Granulocyte (auto) 0.26 0-0.1 H [facility] CenterWhite Blood Oznbk1168-26-68 11:54:00* Test Item Value Reference Range Interpretation Comments White Blood Count (test code = 6690-2) 6.79 4.8-10.8 [facility] CenterRed Blood Fgbuo8253-75-69 11:54:00* Test Item Value Reference Range Interpretation Comments Red Blood Count (test code = 789-8) 4.38 3.6-5.1 [facility] CenterHemoglobin2018-12-19 11:54:00* Test Item Value Reference Range Interpretation Comments Hemoglobin (test code = 88326-4) 11.4 12.0-16.0 L [facility] CenterHematocrit2018-12-19 11:54:00* Test Item Value Reference Range Interpretation Comments Hematocrit (test code = 4544-3) 38.1 34.2-44.1 [facility] CenterMean Corpuscular Hybusu9929-71-72 11:54:00* Test Item Value Reference Range Interpretation Comments Mean Corpuscular Volume (test code = 787-2) 87.0 81-99 [facility] CenterMean Corpuscular Qenkizzkhv3596-79-81 11:54:00* Test Item Value Reference Range Interpretation Comments Mean Corpuscular Hemoglobin (test code = 785-6) 26.0 28-32 L [facility] CenterMean Corpuscular Hemoglobin Concent 2018-07-11 11:54:00* Test Item Value Reference Range Interpretation Comments Mean Corpuscular Hemoglobin Concent (test code = 786-4) 29.9 31-35 L [facility] CenterRed Cell Distribution Rogph1384-34-40 11:54:00* Test Item Value Reference Range Interpretation Comments Red Cell Distribution Width (test code = 08516-8) 16.0 11.7 -14.4 H [facility] CenterPlatelet Puuds6126-46-12 11:54:00* Test Item Value Reference Range Interpretation Comments Platelet Count (test code = 777-3) 204 140-360 [facility] CenterNeutrophils (%) (Auto)2018-07-11 11:54:00 * Test Item Value Reference Range Interpretation Comments Neutrophils (%) (Auto) (test code = 31144-0) 76.3 38.7-80.0 [facility] CenterLymphocytes (%) (Auto)2018-07-11 11:54:00 * Test Item Value Reference Range Interpretation Comments Lymphocytes (%) (Auto) (test code = 736-9) 10.3 18.0-39.1 L [facility] CenterMonocytes (%) (Auto)2018-07-11 11:54:00* Test Item Value Reference Range Interpretation Comments Monocytes (%) (Auto) (test code = 5905-5) 5.9 4.4-11.3 [facility] CenterEosinophils (%) (Auto)2018-07-11 11:54:00 * Test Item Value Reference Range Interpretation Comments Eosinophils (%) (Auto) (test code = 713-8) 2.7 0.0-6.0 [facility] CenterBasophils (%) (Auto)2018-07-11 11:54:00* Test Item Value Reference Range Interpretation Comments Basophils (%) (Auto) (test code = 706-2) 1.0 0.0-1.0 [facility] CenterIM GRANULOCYTES %2018-07-11 11:54:00* Test Item Value Reference Range Interpretation Comments IM GRANULOCYTES % (test code = IM GRANULOCYTES %) 3.8 0.0- 1.0 H [facility] CenterNeutrophils # (Auto)2018-07-11 11:54:00* Test Item Value Reference Range Interpretation Comments Neutrophils # (Auto) (test code = 751-8) 5.2 2.1-6.9 [facility] CenterLymphocytes # (Auto)2018-07-11 11:54:00* Test Item Value Reference Range Interpretation Comments Lymphocytes # (Auto) (test code = 96846-8) 0.7 1.0-3.2 L [facility] CenterMonocytes # (Auto)2018-07-11 11:54:00* Test Item Value Reference Range Interpretation Comments Monocytes # (Auto) (test code = 742-7) 0.4 0.2-0.8 [facility] CenterEosinophils # (Auto)2018-07-11 11:54:00* Test Item Value Reference Range Interpretation Comments Eosinophils # (Auto) (test code = 711-2) 0.2 0.0-0.4 [facility] CenterBasophils # (Auto)2018-07-11 11:54:00* Test Item Value Reference Range Interpretation Comments Basophils # (Auto) (test code = 704-7) 0.1 0.0-0.1 [facility] CenterAbsolute Immature Granulocyte (auto 2018-07-11 11:54:00* Test Item Value Reference Range Interpretation Comments Absolute Immature Granulocyte (auto (joseph t code = Absolute Immature Granulocyte (auto) 0.26 0-0.1 H [facility] CenterCT CERVICAL SPINE IP9265-37-85 11:47:00 [place] [address] Patient Name: KALYANI TALAVERA MR #: [id number] : 1955 Age/Sex: 63/F Req #: [id number] Adm Physician: Ordered by: ELIESER DAWSON MD Report #: [id number] Location: ER Room/Bed: Procedure: [id number] CT/CT CERVICAL SPINE WO Exam Date: 07/11/18 [...] 1154 COPY TO: ELIESER DAWSON MD Bedside Fraoyeh8802-89-26 11:57:00* Test Item Value Reference Range Interpretation Comments Bedside Glucose (test code = 64401-2) 329 70-120 H Meter ID: [id number]. David's Medical Centerodium Level 2018-07-03 09:09:00* Test Item Value Reference Range Interpretation Comments Sodium Level (test code = 2951-2) 132 136-145 L [facility] CenterPotassium Qqwgz2128-87-52 09:09:00* Test Item Value Reference Range Interpretation Comments Potassium Level (test code = 2823-3) 4.6 3.5-5.1 [facility] CenterChloride Oaozo0345-31-01 09:09:00* Test Item Value Reference Range Interpretation Comments Chloride Level (test code = 2075-0) 95 98-107 L [facility] CenterCarbon Dioxide Qpiyn0244-34-02 09:09:00* Test Item Value Reference Range Interpretation Comments Carbon Dioxide Level (test code = 2028-9) 24 22-29 [facility] CenterAnion Ihi5038-77-84 09:09:00* Test Item Value Reference Range Interpretation Comments Anion Gap (test code = 32563-0) 17.6 8-16 H [facility] CenterBlood Urea Dphbwixk0950-05-37 09:09:00* Test Item Value Reference Range Interpretation Comments Blood Urea Nitrogen (test code = 3094-0) 52 7-26 H [facility] CenterCreatinine2018-12-11 09:09:00* Test Item Value Reference Range Interpretation Comments Creatinine (test code = 2160-0) 1.72 0.57-1.11 H [facility] CenterBUN/Creatinine Ixjpt5423-35-03 09:09:00* Test Item Value Reference Range Interpretation Comments BUN/Creatinine Ratio (test code = 3097-3) 30 6-25 H [facility] CenterEstimat Glomerular Filtration Rate 2018-07-03 09:09:00* Test Item Value Reference Range Interpretation Comments Estimat Glomerular Filtration Rate (test code = 217220047) 30 >60 L Ranges were taken from the National Kidney Disease Education Program and the [facility] Angeles[facility] Kid[facility] Foundation literature.Reference ranges:60 or greater: Krektk43-88 ( for 3 consecutive months): Chronic kidney disease 15 or less: Kidney failureCHI Texas Scottish Rite Hospital For ChildrenGlucose Ltjkq1751-46-06 09:09:00* Test Item Value Reference Range Interpretation Comments Glucose Level (test code = HRL8382) 218 74-118 H [facility] CenterCalcium Zyaud4647-48-02 09:09:00* Test Item Value Reference Range Interpretation Comments Calcium Level (test code = 47835-7) 9.1 8.4-10.2 [facility] CenterTotal Yjsnfmdqg7243-39-19 09:09:00* Test Item Value Reference Range Interpretation Comments Total Bilirubin (test code = 1975-2) 0.4 0.2-1.2 [facility] CenterAspartate Amino Transf (AST/SGOT) 2018-07-03 09:09:00* Test Item Value Reference Range Interpretation Comments Aspartate Amino Transf (AST/SGOT) (test code = Aspartate Amino Transf (AST/SGOT)) 9 5-34 [facility] CenterAlanine Aminotransferase (ALT/SGPT) 2018-07-03 09:09:00* Test Item Value Reference Range Interpretation Comments Alanine Aminotransferase (ALT/SGPT) (test code = 1742-6) 12 0-55 [facility] CenterTotal Fdjkeon3679-90-99 09:09:00* Test Item Value Reference Range Interpretation Comments Total Protein (test code = 2885-2) 7.2 6.5-8.1 [facility] CenterAlbumin2018-12-11 09:09:00* Test Item Value Reference Range Interpretation Comments Albumin (test code = 1751-7) 3.4 3.5-5.0 L [facility] CenterGlobulin2018-12-11 09:09:00* Test Item Value Reference Range Interpretation Comments Globulin (test code = 41430-2) 3.8 2.3-3.5 H [facility] CenterAlbumin/Globulin Zrwhm0501-12-61 09:09:00 * Test Item Value Reference Range Interpretation Comments Albumin/Globulin Ratio (test code = 1759-0) 0.9 0.8-2.0 [facility] CenterAlkaline Gmzccxqldun0377-37-81 09:09:00* Test Item Value Reference Range Interpretation Comments Alkaline Phosphatase (test code = 6768-6) 59 40-150 [facility] CenterCHEST SINGLE (NOT PORTABLE)2018-07-01 13:32:00 [place] [address] Patient Name: KALYANI TALAVERA MR #: [id number] : 1955 Age/Sex: 63/F Req #: [id number] Adm Physician: LUCILLE OLIVO MD Ordered by: BENJAMIN MASTERS MD Report #: [id number] Location: [facility] Room/Bed: [place] [address] Procedure: [id number] DX/CHEST SINGLE (NOT PORTABLE) Exam Date: 07/01/18 [...] COPY TO: BENJAMIN MASTERS MD Hemoglobin A1c Prwfumt4638-57-72 13:20:00* Test Item Value Reference Range Interpretation Comments Hemoglobin A1c Percent (test code = Hemoglobin A1c Percent) 8.4 4.0-7.0 H [facility] CenterHemoglobin A1c Hqklokh3165-07-56 13:20:00 * Test Item Value Reference Range Interpretation Comments Hemoglobin A1c Percent (test code = Hemoglobin A1c Percent) 8.4 4.0-7.0 H [facility] CenterHemoglobin A1c Gwlkysp9946-12-01 13:20:00 * Test Item Value Reference Range Interpretation Comments Hemoglobin A1c Percent (test code = Hemoglobin A1c Percent) 8.4 4.0-7.0 H [facility] CenterHemoglobin A1c Ukqcvsn1195-69-24 13:20:00 * Test Item Value Reference Range Interpretation Comments Hemoglobin A1c Percent (test code = Hemoglobin A1c Percent) 8.4 4.0-7.0 H [facility] CenterVQ LUNG SCAN VENT OBPOZMMJX1655-86-86 16:24:00 [place] [address] Patient Name: KALYANI TALAVERA MR #: [id number] : 1955 Age/Sex: 63/F Req #: [id number] Adm Physician: LUCILLE OLIVO MD Ordered by: JACINDA BUSTILLOS MD Report #: [id number] Location: [facility] Room/Bed: [place] [address] Procedure: [id number] N M/VQ LUNG SCAN VENT PERFUSION Exam [...] COPY TO: JACINDA VILLAGOMEZ MD Creatine Kinase XM4604-90-25 08:14:00* Test Item Value Reference Range Interpretation Comments Creatine Kinase MB (test code = 88934-6) 1.50 0-5.0 [facility] CenterTroponin C3635-19-74 08:14:00* Test Item Value Reference Range Interpretation Comments Troponin I (test code = IZP1845) < 0.001 0-0.300 [facility] CenterCreatine Oojkng6582-55-57 08:07:00* Test Item Value Reference Range Interpretation Comments Creatine Kinase (test code = 2157-6) 61 29-168 [facility] CenterB-Type Natriuretic Tsjzseg4780-88-02 07:10:00* Test Item Value Reference Range Interpretation Comments B-Type Natriuretic Peptide (test code = 94741-3) < 10.0 0-100 [facility] CenterWhite Blood Lzonh7031-73-82 05:51:00* Test Item Value Reference Range Interpretation Comments White Blood Count (test code = 6690-2) 6.29 4.8-10.8 [facility] CenterRed Blood Mhgtd4498-57-53 05:51:00* Test Item Value Reference Range Interpretation Comments Red Blood Count (test code = 789-8) 4.36 3.6-5.1 [facility] CenterHemoglobin2018-12-06 05:51:00* Test Item Value Reference Range Interpretation Comments Hemoglobin (test code = 07307-0) 11.1 12.0-16.0 L [facility] CenterHematocrit2018-12-06 05:51:00* Test Item Value Reference Range Interpretation Comments Hematocrit (test code = 4544-3) 37.1 34.2-44.1 [facility] CenterMean Corpuscular Jgahnc0325-95-95 05:51:00* Test Item Value Reference Range Interpretation Comments Mean Corpuscular Volume (test code = 787-2) 85.1 81-99 [facility] CenterMe Corpuscular Ixjsgssjve3858-85-83 05:51:00* Test Item Value Reference Range Interpretation Comments Mean Corpuscular Hemoglobin (test code = 785-6) 25.5 28-32 L [facility] CenterMean Corpuscular Hemoglobin Concent 2018-06-28 05:51:00* Test Item Value Reference Range Interpretation Comments Mean Corpuscular Hemoglobin Concent (test code = 786-4) 29.9 31-35 L [facility] CenterRed Cell Distribution Tcrzg1041-88-39 05:51:00* Test Item Value Reference Range Interpretation Comments Red Cell Distribution Width (test code = 02916-2) 15.7 11.7 -14.4 H [facility] CenterPlatelet Lfoae8749-29-31 05:51:00* Test Item Value Reference Range Interpretation Comments Platelet Count (test code = 777-3) 162 140-360 [facility] CenterNeutrophils (%) (Auto)2018-06-28 05:51:00 * Test Item Value Reference Range Interpretation Comments Neutrophils (%) (Auto) (test code = 36367-3) 75.4 38.7-80.0 [facility] CenterLymphocytes (%) (Auto)2018-06-28 05:51:00 * Test Item Value Reference Range Interpretation Comments Lymphocytes (%) (Auto) (test code = 736-9) 13.0 18.0-39.1 L [facility] CenterMonocytes (%) (Auto)2018-06-28 05:51:00* Test Item Value Reference Range Interpretation Comments Monocytes (%) (Auto) (test code = 5905-5) 7.3 4.4-11.3 [facility] CenterEosinophils (%) (Auto)2018-06-28 05:51:00 * Test Item Value Reference Range Interpretation Comments Eosinophils (%) (Auto) (test code = 713-8) 2.7 0.0-6.0 [facility] CenterBasophils (%) (Auto)2018-06-28 05:51:00* Test Item Value Reference Range Interpretation Comments Basophils (%) (Auto) (test code = 706-2) 1.0 0.0-1.0 [facility] CenterIM GRANULOCYTES %2018-06-28 05:51:00* Test Item Value Reference Range Interpretation Comments IM GRANULOCYTES % (test code = IM GRANULOCYTES %) 0.6 0.0- 1.0 [facility] CenterNeutrophils # (Auto)2018-06-28 05:51:00* Test Item Value Reference Range Interpretation Comments Neutrophils # (Auto) (test code = 751-8) 4.7 2.1-6.9 [facility] CenterLymphocytes # (Auto)2018-06-28 05:51:00* Test Item Value Reference Range Interpretation Comments Lymphocytes # (Auto) (test code = 82430-2) 0.8 1.0-3.2 L [facility] CenterMonocytes # (Auto)2018-06-28 05:51:00* Test Item Value Reference Range Interpretation Comments Monocytes # (Auto) (test code = 742-7) 0.5 0.2-0.8 [facility] CenterEosinophils # (Auto)2018-06-28 05:51:00* Test Item Value Reference Range Interpretation Comments Eosinophils # (Auto) (test code = 711-2) 0.2 0.0-0.4 [facility] CenterBasophils # (Auto)2018-06-28 05:51:00* Test Item Value Reference Range Interpretation Comments Basophils # (Auto) (test code = 704-7) 0.1 0.0-0.1 [facility] CenterAbsolute Immature Granulocyte (auto 2018-06-28 05:51:00* Test Item Value Reference Range Interpretation Comments Absolute Immature Granulocyte (auto (joseph t code = Absolute Immature Granulocyte (auto) 0.04 0-0.1 [facility] CenterCHEST 2 TBHQW1144-94-12 04:37:00 [place] [address] Patient Name: KALYANI TALAVERA MR #: [id number] : 1955 Age/Sex: 63/F Req #: [id number] Adm Physician: Ordered by: JACQUES JANE MD Report #: [id number] Location: ER Room/Bed: Procedure: 1205- 0011 DX/CHEST 2 VIEWS Exam Date: 06/27/18 Exam Time: 043 REPORT STATUS: Signed CHEST 2 VIEWS, Technique: [...] on 06/27/18439 COPY TO: JACQUES HOOD MD FSEOQVC7948-56-96 13:15:00 RUN DATE: 06/21/18 [place] [employer] PAGE 1 RUN TIME: 1316 Specimen Jamiei brennan RUN USER: INTERFACE PATIENT: KALYANI TALAVERA ACCT #: V [id number] LOC: [place] U #: [id number] AGE/SX: 63/F ROOM: RE06/19/18REG DR: Kb Bradford MD : 57 BED: DIS: STATUS: [facility] TLOC: SPEC #: [id number] RECD: 06/20/18 STATUS: [facility] #: [id number] MARILEE: 06/19/18- [facility] DR: Kb Bradford MD ENTERED: 06/20/18 SP TYPE: STOMACH OTHR DR: Lucille Torres MDORDERED: GROSS COPIES TO: Lucille Nur MD [address] [facility] [address] [place], [place] [id number] Kb Bradford Si, MD [address] [address] PROCEDURES: GROSS ( 06/21/18-1249) TISSUES: ANTRAL BIOPSY - H-PYLORI CLINICAL HIST ORY COLLECTION DATE: 06/19/18 DYSPHAGIA, HEARTBURN POST-OP DIAGNOSIS: HIATAL HERNIA, GASTRITIS FINAL DIAGNOSIS Stomach, antrum, biopsy: REACTIVE GASTROPATHY CONTROLLED GIEMSA STAIN NEGATIVE FOR HELICOBAC TER ORGANISMS NEGATIVE FOR MALIGNANCY MARYAM/sm D 96491, 08528 MACROSCOPIC The specimen is received in formalin, labeled with the lis ent's name, identified as "antrum bx", and consists of two gutierrez biopsy tissue m easuring 0.3 cm each, submitted for H E and Giemsa stains. GROSS PERFORM ED AT [facility] CONTINUED ON NEXT PAG E RUN DATE: 06/21/18 [facility] PAGE 2 RUN TIME: 1316 Specimen Inquiry RUN USER: INTERFACE SPEC #: [id number] PATIENT: TALAVERAKHANH #[id number] (Continued) MACROSCO PIC (Continued) [facility] [address] [place] [address] (p)[phone] MICROSCOPIC MICROSCOPIC PERFOR MED AT [facility] All of the stains, including any controls perfor med, stain appropriately. [facility] [address] [place] [address] (p)[phone] PERFORMING SITE Diagnosis performed at: [facility] [address] [place] [address] Signed SIGNATURE ON FILE Stacey Fuller 06/21/18 1315 END OF REPORT B-Type Natriuretic Lrjvcra1917-51-58 03:14:00* Test Item Value Reference Range Interpretation Comments B-Type Natriuretic Peptide (test code = 01579-8) 10.5 0-100 [facility] CenterCreatine Kinase TZ8349-45-64 03:14:00* Test Item Value Reference Range Interpretation Comments Creatine Kinase MB (test code = 17810-9) 1.30 0-5.0 [facility] CenterTroponin O4065-45-50 03:14:00* Test Item Value Reference Range Interpretation Comments Troponin I (test code = FIW7336) -0.001 0-0.300 [facility] CenterBedside Htmwbwi3360-26-96 03:04:00* Test Item Value Reference Range Interpretation Comments Bedside Glucose (test code = 85874-1) 291 70-120 H Meter ID: [id number]. David's Medical Centerodium Level 2018-04-03 02:45:00* Test Item Value Reference Range Interpretation Comments Sodium Level (test code = 2951-2) 140 136-145 [facility] CenterPotassium Tboqs4428-45-19 02:45:00* Test Item Value Reference Range Interpretation Comments Potassium Level (test code = 2823-3) 3.8 3.5-5.1 [facility] CenterChloride Rtmoa8790-64-39 02:45:00* Test Item Value Reference Range Interpretation Comments Chloride Level (test code = 2075-0) 100 98-107 [facility] CenterCarbon Dioxide Vrjax0563-27-45 02:45:00* Test Item Value Reference Range Interpretation Comments Carbon Dioxide Level (test code = 8-9) 29 22-29 [facility] CenterAnion Ori8503-54-75 02:45:00* Test Item Value Reference Range Interpretation Comments Anion Gap (test code = 16935-5) 14.8 8-16 [facility] CenterBlood Urea Zoupceqo3583-73-67 02:45:00* Test Item Value Reference Range Interpretation Comments Blood Urea Nitrogen (test code = 3094-0) 49 7-26 H [facility] CenterCreatinine2018-09-11 02:45:00* Test Item Value Reference Range Interpretation Comments Creatinine (test code = 2160-0) 1.93 0.57-1.11 H [facility] CenterBUN/Creatinine Kthwb6436-97-09 02:45:00* Test Item Value Reference Range Interpretation Comments BUN/Creatinine Ratio (test code = 3097-3) 25 6-25 [facility] CenterEstimat Glomerular Filtration Rate 2018-04-03 02:45:00* Test Item Value Reference Range Interpretation Comments Estimat Glomerular Filtration Rate (test code = 21936-2) 26 >60 L Ranges were taken from the National Kidney Disease Education Program and the [place] [facility] Kidney Foundation literature.Reference ranges:60 or greater: Iazgbl55-20 ( for 3 consecutive months): Chronic kidney disease 15 or less: Kidney failureMission Regional Medical CenterGlucose Wspcf9578-19-63 02:45:00* Test Item Value Reference Range Interpretation Comments Glucose Level (test code = DIV5192) 58 74-118 LL Results called to LU HARMON RN at 0244 on 04/03/18 by Francoise Proctor. RB [place]. [facility] CenterCalcium Ojokz9529-70-82 02:45:00* Test Item Value Reference Range Interpretation Comments Calcium Level (test code = 51757-4) 9.3 8.4-10.2 [facility] CenterTotal Gdtwccrjp8603-33-52 02:45:00* Test Item Value Reference Range Interpretation Comments Total Bilirubin (test code = 1975-2) 0.2 0.2-1.2 [facility] CenterAspartate Amino Transf (AST/SGOT) 2018-04-03 02:45:00* Test Item Value Reference Range Interpretation Comments Aspartate Amino Transf (AST/SGOT) (test code = Aspartate Amino Transf (AST/SGOT)) 18 5-34 [facility] CenterAlanine Aminotransferase (ALT/SGPT) 2018-04-03 02:45:00* Test Item Value Reference Range Interpretation Comments Alanine Aminotransferase (ALT/SGPT) (test code = 1742-6) 18 0-55 [facility] CenterTotal Tqoiutk0972-03-84 02:45:00* Test Item Value Reference Range Interpretation Comments Total Protein (test code = 2885-2) 7.3 6.5-8.1 [facility] CenterAlbumin2018-09-11 02:45:00* Test Item Value Reference Range Interpretation Comments Albumin (test code = 1751-7) 3.5 3.5-5.0 [facility] CenterGlobulin2018-09-11 02:45:00* Test Item Value Reference Range Interpretation Comments Globulin (test code = 65257-2) 3.8 2.3-3.5 H [facility] CenterAlbumin/Globulin Rqtqf2174-23-75 02:45:00 * Test Item Value Reference Range Interpretation Comments Albumin/Globulin Ratio (test code = 1759-0) 0.9 0.8-2.0 [facility] CenterAlkaline Uybubybulkn2024-69-81 02:45:00* Test Item Value Reference Range Interpretation Comments Alkaline Phosphatase (test code = 6768-6) 56 40-150 [facility] CenterCreatine Rbcdug3772-80-90 02:45:00* Test Item Value Reference Range Interpretation Comments Creatine Kinase (test code = 2157-6) 54 29-168 [facility] CenterUrine Dvdcw3155-22-48 02:37:00* Test Item Value Reference Range Interpretation Comments Urine Color (test code = 5778-6) COLORLESS YELLOW [facility] CenterUrine Nbjempe6077-79-04 02:37:00* Test Item Value Reference Range Interpretation Comments Urine Clarity (test code = 33412-4) CLEAR CLEAR [facility] CenterUrine Specific Fehdxss4054-89-58 02:37:00 * Test Item Value Reference Range Interpretation Comments Urine Specific Harmony (test code = 5811-5) 1.005 1.010-1.02 5 L [facility] CenterUrine aQ2740-01-04 02:37:00* Test Item Value Reference Range Interpretation Comments Urine pH (test code = 47817-0) 7 5-7 [facility] CenterUrine Leukocyte Cxavnjcp4584-70-91 02:37:00* Test Item Value Reference Range Interpretation Comments Urine Leukocyte Esterase (test code = 5799-2) NEGATIVE NEGATIVE [facility] Ktyrcob2726-58-95 02:37:00* Test Item Value Reference Range Interpretation Comments Urine Nitrite (test code = 01853-7) NEGATIVE NEGATIVE [facility] Dexaupl3301-54-88 02:37:00* Test Item Value Reference Range Interpretation Comments Urine Protein (test code = 5804-0) NEGATIVE NEGATIVE [facility] Glucose (UA)2018-04-03 02:37:00* Test Item Value Reference Range Interpretation Comments Urine Glucose (UA) (test code = 2349-9) NEGATIVE NEGATIVE [facility] Yizqufl4979-17-60 02:37:00* Test Item Value Reference Range Interpretation Comments Urine Ketones (test code = 41645-6) NEGATIVE NEGATIVE [facility] Vgnaazpvhmps7273-14-90 02:37:00* Test Item Value Reference Range Interpretation Comments Urine Urobilinogen (test code = 54146-6) 0.2 0.2-1 [facility] Rlkjiwrhl2576-45-50 02:37:00* Test Item Value Reference Range Interpretation Comments Urine Bilirubin (test code = 1978-6) NEGATIVE NEGATIVE [facility] Nnpgg5262-65-18 02:37:00* Test Item Value Reference Range Interpretation Comments Urine Blood (test code = 80431-1) TRACE NEGATIVE H [facility] IMW1958-96-08 02:37:00* Test Item Value Reference Range Interpretation Comments Urine WBC (test code = 5821-4) 0-5 0-5 [facility] FQK3771-28-12 02:37:00* Test Item Value Reference Range Interpretation Comments Urine RBC (test code = 76439-6) 0-5 0-5 [facility] Skwvsqgg9531-25-06 02:37:00* Test Item Value Reference Range Interpretation Comments Urine Bacteria (test code = 23126-7) RARE NONE [facility] Epithelial Litan3641-49-74 02:37:00 * Test Item Value Reference Range Interpretation Comments Urine Epithelial Cells (test code = 94431-0) FEW NONE [facility] Dpmzu5802-58-43 02:37:00* Test Item Value Reference Range Interpretation Comments Urine Color (test code = 5778-6) COLORLESS YELLOW [facility] Nxvxxta1213-32-92 02:37:00* Test Item Value Reference Range Interpretation Comments Urine Clarity (test code = 98840-1) CLEAR CLEAR [facility] Specific Msgeixb4187-82-07 02:37:00 * Test Item Value Reference Range Interpretation Comments Urine Specific Harmony (test code = 5811-5) 1.005 1.010-1.02 5 L [facility] uQ7263-81-02 02:37:00* Test Item Value Reference Range Interpretation Comments Urine pH (test code = 89886-5) 7 5-7 [facility] Leukocyte Nergaxiv4773-12-86 02:37:00* Test Item Value Reference Range Interpretation Comments Urine Leukocyte Esterase (test code = 5799-2) NEGATIVE [facility]GATIVE [facility] Puvhhff6492-50-70 02:37:00* Test Item Value Reference Range Interpretation Comments Urine Nitrite (test code = 32541-7) NEGATIVE [facility]GATIVE [facility] Kzououv1503-76-64 02:37:00* Test Item Value Reference Range Interpretation Comments Urine Protein (test code = 5804-0) NEGATIVE [facility]GATIVE [facility] Glucose (UA)2018-04-03 02:37:00* Test Item Value Reference Range Interpretation Comments Urine Glucose (UA) (test code = 2349-9) NEGATIVE [facility]GATIVE [facility] Xwjjluh0434-20-68 02:37:00* Test Item Value Reference Range Interpretation Comments Urine Ketones (test code = 37675-1) NEGATIVE NEGATIVE [facility] Jvwwjgsdqygt9686-98-69 02:37:00* Test Item Value Reference Range Interpretation Comments Urine Urobilinogen (test code = 64526-4) 0.2 0.2-1 [facility] Pnsgwrsuj3225-37-27 02:37:00* Test Item Value Reference Range Interpretation Comments Urine Bilirubin (test code = 1978-6) NEGATIVE NEGATIVE [facility] Kvrby1944-44-78 02:37:00* Test Item Value Reference Range Interpretation Comments Urine Blood (test code = 61968-7) TRACE NEGATIVE H [facility] EMC9915-17-69 02:37:00* Test Item Value Reference Range Interpretation Comments Urine WBC (test code = 5821-4) 0-5 0-5 [facility] RBY3485-84-72 02:37:00* Test Item Value Reference Range Interpretation Comments Urine RBC (test code = 53712-1) 0-5 0-5 [facility] Acuogqgc4961-89-41 02:37:00* Test Item Value Reference Range Interpretation Comments Urine Bacteria (test code = 74780-1) RARE NONE [facility] Epithelial Tvtcp1463-75-77 02:37:00 * Test Item Value Reference Range Interpretation Comments Urine Epithelial Cells (test code = 78805-5) FEW NONE [facility] Skwvo6867-23-24 02:37:00* Test Item Value Reference Range Interpretation Comments Urine Color (test code = 5778-6) COLORLESS YELLOW [facility] Wrikrnh8543-73-03 02:37:00* Test Item Value Reference Range Interpretation Comments Urine Clarity (test code = 94685-7) CLEAR CLEAR [facility] Specific Ynnbfjj8451-29-74 02:37:00 * Test Item Value Reference Range Interpretation Comments Urine Specific Harmony (test code = 5811-5) 1.005 1.010-1.02 5 L [facility] zK6352-72-94 02:37:00* Test Item Value Reference Range Interpretation Comments Urine pH (test code = 02840-4) 7 5-7 [facility] Leukocyte Ybreauow6367-22-26 02:37:00* Test Item Value Reference Range Interpretation Comments Urine Leukocyte Esterase (test code = 5799-2) NEGATIVE NEGATIVE [facility] Jwemcqx4932-78-85 02:37:00* Test Item Value Reference Range Interpretation Comments Urine Nitrite (test code = 98038-4) NEGATIVE NEGATIVE [facility] Xbukbow3783-96-91 02:37:00* Test Item Value Reference Range Interpretation Comments Urine Protein (test code = 5804-0) NEGATIVE NEGATIVE [facility] Glucose (UA)2018-04-03 02:37:00* Test Item Value Reference Range Interpretation Comments Urine Glucose (UA) (test code = 2349-9) NEGATIVE NEGATIVE [facility] Yfftnif9070-07-93 02:37:00* Test Item Value Reference Range Interpretation Comments Urine Ketones (test code = 95263-0) NEGATIVE NEGATIVE [facility] Efbtjnvjaicv8246-82-00 02:37:00* Test Item Value Reference Range Interpretation Comments Urine Urobilinogen (test code = 65676-0) 0.2 0.2-1 [facility] Zgrbroljp6182-80-46 02:37:00* Test Item Value Reference Range Interpretation Comments Urine Bilirubin (test code = 1978-6) NEGATIVE NEGATIVE [facility] Rpjgo0760-74-18 02:37:00* Test Item Value Reference Range Interpretation Comments Urine Blood (test code = 02645-3) TRACE NEGATIVE H [facility] XPD6320-08-26 02:37:00* Test Item Value Reference Range Interpretation Comments Urine WBC (test code = 5821-4) 0-5 0-5 [facility] OXW7826-54-68 02:37:00* Test Item Value Reference Range Interpretation Comments Urine RBC (test code = 92730-5) 0-5 0-5 [facility] Iqoqemlz9797-85-44 02:37:00* Test Item Value Reference Range Interpretation Comments Urine Bacteria (test code = 61640-3) RARE NONE [facility] Epithelial Blrgs3530-56-43 02:37:00 * Test Item Value Reference Range Interpretation Comments Urine Epithelial Cells (test code = 98618-7) FEW NONE [facility] Lnaiw6639-17-14 02:37:00* Test Item Value Reference Range Interpretation Comments Urine Color (test code = 5778-6) COLORLESS YELLOW [facility] Qsutoif1812-50-28 02:37:00* Test Item Value Reference Range Interpretation Comments Urine Clarity (test code = 88334-9) CLEAR CLEAR [facility] Specific Cnsulgl3764-57-85 02:37:00 * Test Item Value Reference Range Interpretation Comments Urine Specific Harmony (test code = 5811-5) 1.005 1.010-1.02 5 L [facility] oM4612-79-48 02:37:00* Test Item Value Reference Range Interpretation Comments Urine pH (test code = 14720-1) 7 5-7 [facility] Leukocyte Djpannff5531-83-15 02:37:00* Test Item Value Reference Range Interpretation Comments Urine Leukocyte Esterase (test code = 5799-2) NEGATIVE NEGATIVE [facility] Lrvseqm1427-13-10 02:37:00* Test Item Value Reference Range Interpretation Comments Urine Nitrite (test code = 07507-0) NEGATIVE NEGATIVE [facility] Jkvwsjz3961-18-34 02:37:00* Test Item Value Reference Range Interpretation Comments Urine Protein (test code = 5804-0) NEGATIVE NEGATIVE [facility] Glucose (UA)2018-04-03 02:37:00* Test Item Value Reference Range Interpretation Comments Urine Glucose (UA) (test code = 2349-9) NEGATIVE NEGATIVE [facility] Ygxsjeg1425-96-62 02:37:00* Test Item Value Reference Range Interpretation Comments Urine Ketones (test code = 32670-0) NEGATIVE NEGATIVE [facility] Eepozhoiuliv1451-40-62 02:37:00* Test Item Value Reference Range Interpretation Comments Urine Urobilinogen (test code = 92787-8) 0.2 0.2-1 [facility] Wqgxxhxbh2432-65-39 02:37:00* Test Item Value Reference Range Interpretation Comments Urine Bilirubin (test code = 1978-6) NEGATIVE NEGATIVE [facility] Qblxd4315-40-47 02:37:00* Test Item Value Reference Range Interpretation Comments Urine Blood (test code = 35168-0) TRACE NEGATIVE H [facility] VWE5084-43-00 02:37:00* Test Item Value Reference Range Interpretation Comments Urine WBC (test code = 5821-4) 0-5 0-5 [facility] FST2061-35-42 02:37:00* Test Item Value Reference Range Interpretation Comments Urine RBC (test code = 97773-2) 0-5 0-5 [facility] Ejxgytzy3349-66-67 02:37:00* Test Item Value Reference Range Interpretation Comments Urine Bacteria (test code = 89189-5) RARE NONE [facility] Epithelial Wtfrs2236-07-62 02:37:00 * Test Item Value Reference Range Interpretation Comments Urine Epithelial Cells (test code = 81064-2) FEW NONE [facility] Center[facility] Blood Wuwjb4329-75-35 02:30:00* Test Item Value Reference Range Interpretation Comments White Blood Count (test code = 6690-2) 6.05 4.8-10.8 [facility] Gjjkl1900-03-59 02:30:00* Test Item Value Reference Range Interpretation Comments Red Blood Count (test code = 789-8) 4.43 3.6-5.1 [facility] CenterHemoglobin2018-09-11 02:30:00* Test Item Value Reference Range Interpretation Comments Hemoglobin (test code = 29938-7) 11.5 12.0-16.0 L [facility] CenterHematocrit2018-09-11 02:30:00* Test Item Value Reference Range Interpretation Comments Hematocrit (test code = 4544-3) 38.3 34.2-44.1 [facility] CenterMean Corpuscular Qitxrt9211-87-13 02:30:00* Test Item Value Reference Range Interpretation Comments Mean Corpuscular Volume (test code = 787-2) 86.5 81-99 [facility] Center[facility] Corpuscular Txwejdggeg3831-82-36 02:30:00* Test Item Value Reference Range Interpretation Comments Mean Corpuscular Hemoglobin (test code = 785-6) 26.0 28-32 L [facility] CenterMean Corpuscular Hemoglobin Concent 2018-04-03 02:30:00* Test Item Value Reference Range Interpretation Comments Mean Corpuscular Hemoglobin Concent (test code = 786-4) 30.0 31-35 L [facility] CenterRed Cell Distribution Heazs2143-43-82 02:30:00* Test Item Value Reference Range Interpretation Comments Red Cell Distribution Width (test code = 59191-5) 15.9 11.7 -14.4 H [facility] CenterPlatelet Aovfj6900-33-48 02:30:00* Test Item Value Reference Range Interpretation Comments Platelet Count (test code = 777-3) 175 140-360 [facility] CenterNeutrophils (%) (Auto)2018-04-03 02:30:00 * Test Item Value Reference Range Interpretation Comments Neutrophils (%) (Auto) (test code = 75842-2) 69.7 38.7-80.0 [facility] CenterLymphocytes (%) (Auto)2018-04-03 02:30:00 * Test Item Value Reference Range Interpretation Comments Lymphocytes (%) (Auto) (test code = 736-9) 18.5 18.0-39.1 [facility] Center[facility] (%) (Auto)2018-04-03 02:30:00* Test Item Value Reference Range Interpretation Comments Monocytes (%) (Auto) (test code = 5905-5) 6.8 4.4-11.3 [facility] CenterEosinophils (%) (Auto)2018-04-03 02:30:00 * Test Item Value Reference Range Interpretation Comments Eosinophils (%) (Auto) (test code = 713-8) 3.3 0.0-6.0 [facility] Center[facility] (%) (Auto)2018-04-03 02:30:00* Test Item Value Reference Range Interpretation Comments Basophils (%) (Auto) (test code = 706-2) 1.0 0.0-1.0 [facility] CenterIM GRANULOCYTES %2018-04-03 02:30:00* Test Item Value Reference Range Interpretation Comments IM GRANULOCYTES % (test code = IM GRANULOCYTES %) 0.7 0.0- 1.0 [facility] CenterNeutrophils # (Auto)2018-04-03 02:30:00* Test Item Value Reference Range Interpretation Comments Neutrophils # (Auto) (test code = 751-8) 4.2 2.1-6.9 [facility] CenterLymphocytes # (Auto)2018-04-03 02:30:00* Test Item Value Reference Range Interpretation Comments Lymphocytes # (Auto) (test code = 23397-8) 1.1 1.0-3.2 [facility] CenterMon[facility] # (Auto)2018-04-03 02:30:00* Test Item Value Reference Range Interpretation Comments Monocytes # (Auto) (test code = 742-7) 0.4 0.2-0.8 [facility] CenterEosinophils # (Auto)2018-04-03 02:30:00* Test Item Value Reference Range Interpretation Comments Eosinophils # (Auto) (test code = 711-2) 0.2 0.0-0.4 [facility] CenterBas[facility] # (Auto)2018-04-03 02:30:00* Test Item Value Reference Range Interpretation Comments Basophils # (Auto) (test code = 704-7) 0.1 0.0-0.1 [facility] CenterAbsolute Immature Granulocyte (auto 2018-04-03 02:30:00* Test Item Value Reference Range Interpretation Comments Absolute Immature Granulocyte (auto (joseph t code = Absolute Immature Granulocyte (auto) 0.04 0-0.1 [facility] CenterCHEST SINGLE (PORTABLE)2018-04-03 02:16:00 [facility] [address] [place] [address] Patient Name: KALYANI TALAVERA MR #: [id number] : 1955 Age/Sex: 63/F Req #: [id number] Adm Physician: Ordered by: ROBERT OLIVIA MD Report #: [id number] Location: ER Room/Bed: Procedure: [id number] DX/CHEST SINGLE (PORTABLE) Ex am Date: Exam [...] 04/03/18216 COPY TO: ROBERT OLIVIA MD Bedside Pdfkodw8420-24-70 11:36:00* Test Item Value Reference Range Interpretation Comments Bedside Glucose (test code = 84259-4) 348 70-120 H Meter ID: [id number] Regional Medical CenterCreatine Kinase MB 2018-02-05 06:30:00* Test Item Value Reference Range Interpretation Comments Creatine Kinase MB (test code = 48386-3) 1.40 0-5.0 [facility] CenterTroponin B9902-63-88 06:30:00* Test Item Value Reference Range Interpretation Comments Troponin I (test code = PFR8446) 0.007 0-0.300 [facility] CenterCreatine Wkuzgj6164-22-44 06:23:00* Test Item Value Reference Range Interpretation Comments Creatine Kinase (test code = 2157-6) 53 29-168 [facility] CenterTriglycerides Sreeb1579-15-32 06:10:00* Test Item Value Reference Range Interpretation Comments Triglycerides Level (test code = 2571-8) 159 0-149 H [facility] CenterCholesterol Lqfos4214-76-26 06:10:00* Test Item Value Reference Range Interpretation Comments Cholesterol Level (test code = 2093-3) 180 0-199 Less than 200 mg/dL Low Apfa072 - 239 mg/dL Borderline Hygb149 m g/dl and greater High Risk [facility] CenterLDL Besvsdazykx6974-02-36 06:10:00* Test Item Value Reference Range Interpretation Comments LDL Cholesterol (test code = 2089-1) 118 60-130 [facility] CenterHDL Rmqmvhwhlrj9676-90-79 06:10:00* Test Item Value Reference Range Interpretation Comments HDL Cholesterol (test code = 2085-9) 30 40-60 L [facility] CenterCholesterol/HDL Oqdwf9123-44-59 06:10:00 * Test Item Value Reference Range Interpretation Comments Cholesterol/HDL Ratio (test code = 9830-1) 6.0 3.0-3.6 H [facility] CenterTriglycerides Teoqs5589-90-47 06:10:00* Test Item Value Reference Range Interpretation Comments Triglycerides Level (test code = 2571-8) 159 0-149 H [facility] CenterCholesterol Nxeci0086-76-28 06:10:00* Test Item Value Reference Range Interpretation Comments Cholesterol Level (test code = 2093-3) 180 0-199 Less than 200 mg/dL Low Lxec622 - 239 mg/dL Borderline Menf962 m g/dl and greater High Risk [facility] CenterLDL Ueortdsiesb1945-93-61 06:10:00* Test Item Value Reference Range Interpretation Comments LDL Cholesterol (test code = 2089-1) 118 60-130 [facility] Uvssesdrqxp3066-07-61 06:10:00* Test Item Value Reference Range Interpretation Comments HDL Cholesterol (test code = 2085-9) 30 40-60 L [facility] CenterCholesterol/HDL Lrxdy6331-17-97 06:10:00 * Test Item Value Reference Range Interpretation Comments Cholesterol/HDL Ratio (test code = 9830-1) 6.0 3.0-3.6 H [facility] CenterTriglycerides Sglib3205-26-42 06:10:00* Test Item Value Reference Range Interpretation Comments Triglycerides Level (test code = 2571-8) 159 0-149 H [facility] CenterCholesterol Ldodc5048-82-28 06:10:00* Test Item Value Reference Range Interpretation Comments Cholesterol Level (test code = 2093-3) 180 0-199 Less than 200 mg/dL Low Wcmm455 - 239 mg/dL Borderline Tkpc601 m g/dl and greater High Risk [facility] CenterLDL Ptscnfchfcc7695-19-42 06:10:00* Test Item Value Reference Range Interpretation Comments LDL Cholesterol (test code = 2089-1) 118 60-130 [facility] Rprsctvheyp4517-93-76 06:10:00* Test Item Value Reference Range Interpretation Comments HDL Cholesterol (test code = 2085-9) 30 40-60 L [facility] CenterCholesterol/HDL Gqovy2653-77-35 06:10:00 * Test Item Value Reference Range Interpretation Comments Cholesterol/HDL Ratio (test code = 9830-1) 6.0 3.0-3.6 H [facility] CenterTriglycerides Vjonc2964-34-42 06:10:00* Test Item Value Reference Range Interpretation Comments Triglycerides Level (test code = 2571-8) 159 0-149 H [facility] CenterCholesterol Amyqx6969-70-52 06:10:00* Test Item Value Reference Range Interpretation Comments Cholesterol Level (test code = 2093-3) 180 0-199 Less than 200 mg/dL Low Qnev831 - 239 mg/dL Borderline Pasj730 m g/dl and greater High Risk [facility] CenterLDL Vpfrcskufox5778-63-57 06:10:00* Test Item Value Reference Range Interpretation Comments LDL Cholesterol (test code = 2089-1) 118 60-130 [facility] CenterHDL Fihknqsqtep8098-68-34 06:10:00* Test Item Value Reference Range Interpretation Comments HDL Cholesterol (test code = 2085-9) 30 40-60 L [facility] CenterCholesterol/HDL Jelxd0981-76-05 06:10:00 * Test Item Value Reference Range Interpretation Comments Cholesterol/HDL Ratio (test code = 9830-1) 6.0 3.0-3.6 H [facility] CenterTriglycerides Qovrt8348-32-34 06:10:00* Test Item Value Reference Range Interpretation Comments Triglycerides Level (test code = 2571-8) 159 0-149 H [facility] CenterCholesterol Beqdk6839-80-55 06:10:00* Test Item Value Reference Range Interpretation Comments Cholesterol Level (test code = 2093-3) 180 0-199 Less than 200 mg/dL Low Qlpq751 - 239 mg/dL Borderline Fkmq752 m g/dl and greater High Risk [facility] CenterLDL Nwawozcbgwz2053-54-29 06:10:00* Test Item Value Reference Range Interpretation Comments LDL Cholesterol (test code = 2089-1) 118 60-130 [facility] CenterHDL Bzpchnljxrx6677-08-41 06:10:00* Test Item Value Reference Range Interpretation Comments HDL Cholesterol (test code = 2085-9) 30 40-60 L [facility] CenterCholesterol/HDL Mjazq3514-26-42 06:10:00 * Test Item Value Reference Range Interpretation Comments Cholesterol/HDL Ratio (test code = 9830-1) 6.0 3.0-3.6 H [facility] CenterCHEST SINGLE (PORTABLE)2018-02-04 11:35:00 [facility] [address] [address] Patient Name: KALYANI TALAVERA MR #: [id number] : 1955 Age/Sex: 62/F Req #: [id number] Adm Physician: Ordered by: ROBERT OLIVIA MD Report #: [id number] Location: ER Room/Bed: Procedure: [id number] DX/CHEST SINGLE (PORTABLE) Ex am Date: 02/04/18 [...] 11:35 AM Dictated By: NEIL BURGER MD 34 Transcribed By: JIM on 02/04/18 1135 COPY TO: ROBERT OLIVIA MD White Blood Yebgf2027-60-11 11:19:00* Test Item Value Reference Range Interpretation Comments White Blood Count (test code = 6690-2) 6.94 4.8-10.8 [facility] CenterRed Blood Olurh3810-61-41 11:19:00* Test Item Value Reference Range Interpretation Comments Red Blood Count (test code = 789-8) 4.49 3.6-5.1 [facility] CenterHemoglobin2018-07-15 11:19:00* Test Item Value Reference Range Interpretation Comments Hemoglobin (test code = 45454-6) 11.3 12.0-16.0 L [facility] CenterHematocrit2018-07-15 11:19:00* Test Item Value Reference Range Interpretation Comments Hematocrit (test code = 4544-3) 37.6 34.2-44.1 [facility] CenterMean Corpuscular Ohdcoi2426-37-13 11:19:00* Test Item Value Reference Range Interpretation Comments Mean Corpuscular Volume (test code = 787-2) 83.7 81-99 [facility] CenterMean Corpuscular Xrdaumkhrv1851-40-10 11:19:00* Test Item Value Reference Range Interpretation Comments Mean Corpuscular Hemoglobin (test code = 785-6) 25.2 28-32 L [facility] CenterMe Corpuscular Hemoglobin Concent 2018-02-04 11:19:00* Test Item Value Reference Range Interpretation Comments Mean Corpuscular Hemoglobin Concent (test code = 786-4) 30.1 31-35 L [facility] CenterRed Cell Distribution Gotwf4705-00-55 11:19:00* Test Item Value Reference Range Interpretation Comments Red Cell Distribution Width (test code = 99860-4) 15.7 11.7 -14.4 H [facility] CenterPlatelet Dhyaj4731-22-98 11:19:00* Test Item Value Reference Range Interpretation Comments Platelet Count (test code = 777-3) 217 140-360 [facility] CenterNeutrophils (%) (Auto)2018-02-04 11:19:00 * Test Item Value Reference Range Interpretation Comments Neutrophils (%) (Auto) (test code = 17403-7) 70.5 38.7-80.0 [facility] CenterLymphocytes (%) (Auto)2018-02-04 11:19:00 * Test Item Value Reference Range Interpretation Comments Lymphocytes (%) (Auto) (test code = 736-9) 19.0 18.0-39.1 [facility] CenterMonocytes (%) (Auto)2018-02-04 11:19:00* Test Item Value Reference Range Interpretation Comments Monocytes (%) (Auto) (test code = 5905-5) 5.3 4.4-11.3 [facility] CenterEosinophils (%) (Auto)2018-02-04 11:19:00 * Test Item Value Reference Range Interpretation Comments Eosinophils (%) (Auto) (test code = 713-8) 3.2 0.0-6.0 [facility] CenterBasophils (%) (Auto)2018-02-04 11:19:00* Test Item Value Reference Range Interpretation Comments Basophils (%) (Auto) (test code = 706-2) 1.0 0.0-1.0 [facility] CenterIM GRANULOCYTES %2018-02-04 11:19:00* Test Item Value Reference Range Interpretation Comments IM GRANULOCYTES % (test code = IM GRANULOCYTES %) 1.0 0.0- 1.0 [facility] CenterNeutrophils # (Auto)2018-02-04 11:19:00* Test Item Value Reference Range Interpretation Comments Neutrophils # (Auto) (test code = 751-8) 4.9 2.1-6.9 [facility] CenterLymphocytes # (Auto)2018-02-04 11:19:00* Test Item Value Reference Range Interpretation Comments Lymphocytes # (Auto) (test code = 44093-2) 1.3 1.0-3.2 [facility] CenterMonocytes # (Auto)2018-02-04 11:19:00* Test Item Value Reference Range Interpretation Comments Monocytes # (Auto) (test code = 742-7) 0.4 0.2-0.8 [facility] (Auto)2018-02-04 11:19:00* Test Item Value Reference Range Interpretation Comments Eosinophils # (Auto) (test code = 711-2) 0.2 0.0-0.4 [facility] # (Auto)2018-02-04 11:19:00* Test Item Value Reference Range Interpretation Comments Basophils # (Auto) (test code = 704-7) 0.1 0.0-0.1 [facility] CenterAbsolute Immature Granulocyte (auto 2018-02-04 11:19:00* Test Item Value Reference Range Interpretation Comments Absolute Immature Granulocyte (auto (joseph t code = Absolute Immature Granulocyte (auto) 0.07 0-0.1 [facility] CenterUrine Hixsq0452-61-83 11:17:00* Test Item Value Reference Range Interpretation Comments Urine Color (test code = 5778-6) YELLOW YELLOW [facility] CenterU[facility] Xljvdic9813-89-66 11:17:00* Test Item Value Reference Range Interpretation Comments Urine Clarity (test code = 14411-1) CLEAR CLEAR [facility] CenterU[facility] Specific Nonyvar5319-64-51 11:17:00 * Test Item Value Reference Range Interpretation Comments Urine Specific Harmony (test code = 5811-5) 1.010 1.010-1.02 5 [facility] CenterU[facility] qS7249-15-55 11:17:00* Test Item Value Reference Range Interpretation Comments Urine pH (test code = 36418-3) 6 5-7 [facility] Center[facility] Leukocyte Wiczgrxn0793-03-67 11:17:00* Test Item Value Reference Range Interpretation Comments Urine Leukocyte Esterase (test code = 5799-2) NEGATIVE NEGATIVE [facility] Center[facility] Foptavw4407-28-39 11:17:00* Test Item Value Reference Range Interpretation Comments Urine Nitrite (test code = 14314-1) NEGATIVE NEGATIVE [facility] CenterU[facility] Axjjpov9771-11-51 11:17:00* Test Item Value Reference Range Interpretation Comments Urine Protein (test code = 5804-0) NEGATIVE NEGATIVE [facility] Center[facility] Glucose (UA)2018-02-04 11:17:00* Test Item Value Reference Range Interpretation Comments Urine Glucose (UA) (test code = 2349-9) NEGATIVE NEGATIVE [facility] CenterU[facility] Frudrob9014-10-62 11:17:00* Test Item Value Reference Range Interpretation Comments Urine Ketones (test code = 15417-9) NEGATIVE NEGATIVE [facility] CenterU[facility] Opiates Gprifa6862-18-37 11:17:00* Test Item Value Reference Range Interpretation Comments Urine Opiates Screen (test code = 31694-2) NEGATIVE NEGATIVE [facility] CenterU[facility] Barbiturates Lduhre6851-26-05 11:17:00* Test Item Value Reference Range Interpretation Comments Urine Barbiturates Screen (test code = 546084058) NEGATIVE NEGA TIVE [facility] CenterU[facility] Phencyclidine Rftncg2991-84-40 11:17:00* Test Item Value Reference Range Interpretation Comments Urine Phencyclidine Screen (test code = 32914-8) NEGATIVE NEGAT MARY [facility] CenterU[facility] Amphetamines Hwvidz2443-90-07 11:17:00* Test Item Value Reference Range Interpretation Comments Urine Amphetamines Screen (test code = 48697-5) NEGATIVE NEGATI VE [facility] Center[facility] Methamphetamines Klosom1533-59-84 11:17:00* Test Item Value Reference Range Interpretation Comments Urine Methamphetamines Screen (test code = Urine Metha mphetamines Screen) NEGATIVE NEGATIVE [facility] Center[facility] Benzodiazepines Udumem3220-24-20 11:17:00* Test Item Value Reference Range Interpretation Comments Urine Benzodiazepines Screen (test code = 99560-0) NEGATIVE NEG ATIVE [facility] Center[facility] Cocaine Ijsjcp1900-02-53 11:17:00* Test Item Value Reference Range Interpretation Comments Urine Cocaine Screen (test code = 3398-5) NEGATIVE NEGATIVE [facility] Center[facility] Cannabinoids Cctupm3539-88-34 11:17:00* Test Item Value Reference Range Interpretation Comments Urine Cannabinoids Screen (test code = 79858-9) NEGATIVE NEGATI VE THESE RESULTS ARE FOR MEDICAL TREATMENT ONLYTHIS REPORT CONTAINS UNCONFIR MED SCREENING RESULTS*POSITIVE RESULTS WILL BE CONFIRMED BY REFERENCE LAB UPON R EQUEST CUT-OFFDRUG CLASS CONCENTRATION ng/mLAmphetamines 1000Methamphetamines 1000Cocaine 300Opiate 300Phencyc lidine 25Cannabinoid 50Barbiturates 300Benzodiazepine 300Methadone 300[facility] CenterUrine Wrvuefvynkyh0013-04-61 11:17:00* Test Item Value Reference Range Interpretation Comments Urine Urobilinogen (test code = 20858-0) 0.2 0.2-1 [facility] CenterU[facility] Rlrryixjf7958-46-99 11:17:00* Test Item Value Reference Range Interpretation Comments Urine Bilirubin (test code = 1978-6) NEGATIVE NEGATIVE [facility] Center[facility] Xtrbp1034-44-45 11:17:00* Test Item Value Reference Range Interpretation Comments Urine Blood (test code = 71870-3) NEGATIVE NEGATIVE [facility] Center[facility] EWB9573-54-34 11:17:00* Test Item Value Reference Range Interpretation Comments Urine WBC (test code = 5821-4) 0-5 0-5 [facility] WMZ0990-25-24 11:17:00* Test Item Value Reference Range Interpretation Comments Urine RBC (test code = 94416-4) NONE 0-5 [facility] Center[facility] Nlwhnwxk6388-67-56 11:17:00* Test Item Value Reference Range Interpretation Comments Urine Bacteria (test code = 48439-9) FEW NONE [facility] Center[facility] Epithelial Axkqx7084-57-22 11:17:00 * Test Item Value Reference Range Interpretation Comments Urine Epithelial Cells (test code = 73522-2) MODERATE NONE [facility] Eztdi2794-19-20 11:17:00* Test Item Value Reference Range Interpretation Comments Urine Mucus (test code = 8247-9) FEW RARE H [facility] CenterU[facility] Opiates Raoxqs1198-65-93 11:17:00* Test Item Value Reference Range Interpretation Comments Urine Opiates Screen (test code = 89691-3) NEGATIVE NEGATIVE [facility] CenterU[facility] Barbiturates Eynmmg0129-70-15 11:17:00* Test Item Value Reference Range Interpretation Comments Urine Barbiturates Screen (test code = 198150413) NEGATIVE NEGA TIVE [facility] Center[facility] Phencyclidine Vnevpj9357-99-96 11:17:00* Test Item Value Reference Range Interpretation Comments Urine Phencyclidine Screen (test code = 67383-4) NEGATIVE NEGAT MARY [facility] CenterU[facility] Amphetamines Bjjwfd8846-72-11 11:17:00* Test Item Value Reference Range Interpretation Comments Urine Amphetamines Screen (test code = 17943-8) NEGATIVE NEGATI VE [facility] CenterU[facility] Methamphetamines Jvotnf6783-66-86 11:17:00* Test Item Value Reference Range Interpretation Comments Urine Methamphetamines Screen (test code = Urine Metha mphetamines Screen) NEGATIVE NEGATIVE [facility] CenterU[facility] Benzodiazepines Fxgqjx8040-41-36 11:17:00* Test Item Value Reference Range Interpretation Comments Urine Benzodiazepines Screen (test code = 01362-1) NEGATIVE NEG ATIVE [facility] CenterU[facility] Cocaine Tqexhc4553-83-39 11:17:00* Test Item Value Reference Range Interpretation Comments Urine Cocaine Screen (test code = 3398-5) NEGATIVE NEGATIVE [facility] CenterU[facility] Cannabinoids Qmwodz5931-24-19 11:17:00* Test Item Value Reference Range Interpretation Comments Urine Cannabinoids Screen (test code = 21386-1) NEGATIVE NEGATI VE THESE RESULTS ARE FOR MEDICAL TREATMENT ONLYTHIS REPORT CONTAINS UNCONFIR MED SCREENING RESULTS*POSITIVE RESULTS WILL BE CONFIRMED BY REFERENCE LAB UPON R EQUEST CUT-OFFDRUG CLASS CONCENTRATION ng/mLAmphetamines 1000Methamphetamines 1000Cocaine 300Opiate 300Phencyc lidine 25Cannabinoid 50Barbiturates 300Benzodiazepine 300Methadone 300[facility] Qqzcc4418-92-63 11:17:00* Test Item Value Reference Range Interpretation Comments Urine Mucus (test code = 8247-9) FEW RARE H [facility] CenterU[facility] Opiates Traaud0185-49-44 11:17:00* Test Item Value Reference Range Interpretation Comments Urine Opiates Screen (test code = 71733-9) NEGATIVE NEGATIVE [facility] CenterU[facility] Barbiturates Klqjno6665-40-37 11:17:00* Test Item Value Reference Range Interpretation Comments Urine Barbiturates Screen (test code = 742501850) NEGATIVE NEGA TIVE [facility] Center[facility] Phencyclidine Cvtlrn0782-44-27 11:17:00* Test Item Value Reference Range Interpretation Comments Urine Phencyclidine Screen (test code = 06220-0) NEGATIVE NEGAT M[facility] Amphetamines Uqvued2629-28-98 11:17:00* Test Item Value Reference Range Interpretation Comments Urine Amphetamines Screen (test code = 34191-7) NEGATIVE NEGATI VE [facility] Center[facility] Methamphetamines Aztexv8170-94-80 11:17:00* Test Item Value Reference Range Interpretation Comments Urine Methamphetamines Screen (test code = Urine Metha mphetamines Screen) NEGATIVE NEGATIVE [facility] Center[facility] Benzodiazepines Fkvfan5654-54-63 11:17:00* Test Item Value Reference Range Interpretation Comments Urine Benzodiazepines Screen (test code = 77767-1) NEGATIVE NEG ATIVE [facility] Center[facility] Cocaine Ffmict5439-82-89 11:17:00* Test Item Value Reference Range Interpretation Comments Urine Cocaine Screen (test code = 3398-5) NEGATIVE NEGATIVE [facility] Center[facility] Cannabinoids Ffonkt8479-13-31 11:17:00* Test Item Value Reference Range Interpretation Comments Urine Cannabinoids Screen (test code = 11863-0) NEGATIVE NEGATI VE THESE RESULTS ARE FOR MEDICAL TREATMENT ONLYTHIS REPORT CONTAINS UNCONFIR MED SCREENING RESULTS*POSITIVE RESULTS WILL BE CONFIRMED BY REFERENCE LAB UPON R EQUEST CUT-OFFDRUG CLASS CONCENTRATION ng/mLAmphetamines 1000Methamphetamines 1000Cocaine 300Opiate 300Phencyc lidine 25Cannabinoid 50Barbiturates 300Benzodiazepine 300Methadone 300[facility] Hrgew1117-14-41 11:17:00* Test Item Value Reference Range Interpretation Comments Urine Mucus (test code = 8247-9) FEW RARE H [facility] CenterU[facility] Opiates Krxiow9348-55-76 11:17:00* Test Item Value Reference Range Interpretation Comments Urine Opiates Screen (test code = 30250-9) NEGATIVE NEGATIVE [facility] CenterU[facility] Barbiturates Rtayck8825-53-29 11:17:00* Test Item Value Reference Range Interpretation Comments Urine Barbiturates Screen (test code = 850702017) NEGATIVE NEGA TIVE [facility] Center[facility] Phencyclidine Sdqewz1658-68-33 11:17:00* Test Item Value Reference Range Interpretation Comments Urine Phencyclidine Screen (test code = 23764-7) NEGATIVE NEGAT MARY [facility] CenterU[facility] Amphetamines Huqrkn8860-46-48 11:17:00* Test Item Value Reference Range Interpretation Comments Urine Amphetamines Screen (test code = 40072-8) NEGATIVE NEGATI VE [facility] CenterU[facility] Methamphetamines Cwbctd2433-35-73 11:17:00* Test Item Value Reference Range Interpretation Comments Urine Methamphetamines Screen (test code = Urine Metha mphetamines Screen) NEGATIVE NEGATIVE [facility] Center[facility] Benzodiazepines Adftjx7114-61-17 11:17:00* Test Item Value Reference Range Interpretation Comments Urine Benzodiazepines Screen (test code = 04226-9) NEGATIVE NEG ATIVE [facility] Center[facility] Cocaine Gnnhrm4044-30-71 11:17:00* Test Item Value Reference Range Interpretation Comments Urine Cocaine Screen (test code = 3398-5) NEGATIVE NEGATIVE [facility] Center[facility] Cannabinoids Npflys6189-37-65 11:17:00* Test Item Value Reference Range Interpretation Comments Urine Cannabinoids Screen (test code = 99325-9) NEGATIVE NEGATI VE THESE RESULTS ARE FOR MEDICAL TREATMENT ONLYTHIS REPORT CONTAINS UNCONFIR MED SCREENING RESULTS*POSITIVE RESULTS WILL BE CONFIRMED BY REFERENCE LAB UPON R EQUEST CUT-OFFDRUG CLASS CONCENTRATION ng/mLAmphetamines 1000Methamphetamines 1000Cocaine 300Opiate 300Phencyc lidine 25Cannabinoid 50Barbiturates 300Benzodiazepine 300Methadone 300[facility] Awgsa6045-21-87 11:17:00* Test Item Value Reference Range Interpretation Comments Urine Mucus (test code = 8247-9) FEW RARE H [facility] CenterU[facility] Opiates Ohrlud3294-99-62 11:17:00* Test Item Value Reference Range Interpretation Comments Urine Opiates Screen (test code = 28722-6) NEGATIVE NEGATIVE [facility] CenterU[facility] Barbiturates Hboewa8823-91-63 11:17:00* Test Item Value Reference Range Interpretation Comments Urine Barbiturates Screen (test code = 549012769) NEGATIVE NEGA TIVE [facility] CenterU[facility] Phencyclidine Afmoyt9435-04-33 11:17:00* Test Item Value Reference Range Interpretation Comments Urine Phencyclidine Screen (test code = 38986-4) NEGATIVE NEGAT MARY [facility] CenterU[facility] Amphetamines Fepexb1190-01-96 11:17:00* Test Item Value Reference Range Interpretation Comments Urine Amphetamines Screen (test code = 34102-8) NEGATIVE NEGATI VE [facility] CenterU[facility] Methamphetamines Deihow0408-36-44 11:17:00* Test Item Value Reference Range Interpretation Comments Urine Methamphetamines Screen (test code = Urine Metha mphetamines Screen) NEGATIVE NEGATIVE [facility] CenterU[facility] Benzodiazepines Eqpuko4617-29-45 11:17:00* Test Item Value Reference Range Interpretation Comments Urine Benzodiazepines Screen (test code = 68583-6) NEGATIVE NEG ATIVE [facility] CenterU[facility] Cocaine Ybqcqg4277-61-03 11:17:00* Test Item Value Reference Range Interpretation Comments Urine Cocaine Screen (test code = 3398-5) NEGATIVE NEGATIVE [facility] CenterU[facility] Cannabinoids Klhqbs6998-53-54 11:17:00* Test Item Value Reference Range Interpretation Comments Urine Cannabinoids Screen (test code = 09158-4) NEGATIVE NEGATI VE THESE RESULTS ARE FOR MEDICAL TREATMENT ONLYTHIS REPORT CONTAINS UNCONFIR MED SCREENING RESULTS*POSITIVE RESULTS WILL BE CONFIRMED BY REFERENCE LAB UPON R EQUEST CUT-OFFDRUG CLASS CONCENTRATION ng/mLAmphetamines 1000Methamphetamines 1000Cocaine 300Opiate 300Phencyc lidine 25Cannabinoid 50Barbiturates 300Benzodiazepine 300Methadone 300[facility] ChildrenU[facility] Mibnb7744-57-56 11:17:00* Test Item Value Reference Range Interpretation Comments Urine Mucus (test code = 8247-9) FEW RARE H [facility] CenterB-Type Natriuretic Ynyjopm4779-24-45 11:08:00* Test Item Value Reference Range Interpretation Comments B-Type Natriuretic Peptide (test code = 42744-0) 29.0 0-100 [facility] Qdzvj9115-34-20 11:03:00* Test Item Value Reference Range Interpretation Comments Sodium Level (test code = 2951-2) 140 136-145 [facility] CenterPotassium Oqwrx8757-70-69 11:03:00* Test Item Value Reference Range Interpretation Comments Potassium Level (test code = 2823-3) 3.7 3.5-5.1 [facility] CenterChloride Okadf1419-42-99 11:03:00* Test Item Value Reference Range Interpretation Comments Chloride Level (test code = 2075-0) 100 98-107 [facility] CenterCarbon Dioxide Aywnt2373-30-10 11:03:00* Test Item Value Reference Range Interpretation Comments Carbon Dioxide Level (test code = 2028-9) 28 22-29 [facility] CenterAnion Eby8984-62-55 11:03:00* Test Item Value Reference Range Interpretation Comments Anion Gap (test code = 78655-2) 15.7 8-16 [facility] CenterBlood Urea Wlwulufc5887-91-09 11:03:00* Test Item Value Reference Range Interpretation Comments Blood Urea Nitrogen (test code = 3094-0) 39 7-26 H [facility] CenterCreatinine2018-07-15 11:03:00* Test Item Value Reference Range Interpretation Comments Creatinine (test code = 2160-0) 1.29 0.57-1.11 H [facility] CenterBUN/Creatinine Nmqjm1521-20-72 11:03:00* Test Item Value Reference Range Interpretation Comments BUN/Creatinine Ratio (test code = 3097-3) 30 6-25 H [facility] CenterEstimat Glomerular Filtration Rate 2018-02-04 11:03:00* Test Item Value Reference Range Interpretation Comments Estimat Glomerular Filtration Rate (test code = 27000-5) 42 >60 L Ranges were taken from the National Kidney Disease Education Program and the [facility] Kidney Foundation literature.Reference ranges:60 or greater: Zdcrwx98-27 ( for 3 consecutive months): Chronic kidney disease 15 or less: Kidney failureCH[facility] ChildrenGlucose Ugtxm0676-48-28 11:03:00* Test Item Value Reference Range Interpretation Comments Glucose Level (test code = KCE4719) 155 74-118 H [facility] CenterCalcium Hzifi2760-14-50 11:03:00* Test Item Value Reference Range Interpretation Comments Calcium Level (test code = 85887-3) 9.0 8.4-10.2 [facility] CenterMagnesium Ssveo6341-66-18 11:03:00* Test Item Value Reference Range Interpretation Comments Magnesium Level (test code = 11767-5) 1.7 1.3-2.1 [facility] CenterTotal Ubmamzmmm7906-68-01 11:03:00* Test Item Value Reference Range Interpretation Comments Total Bilirubin (test code = 1975-2) 0.4 0.2-1.2 [facility] CenterAspartate Amino Transf (AST/SGOT) 2018-02-04 11:03:00* Test Item Value Reference Range Interpretation Comments Aspartate Amino Transf (AST/SGOT) (test code = Aspartate Amino Transf (AST/SGOT)) 15 5-34 [facility] CenterAlanine Aminotransferase (ALT/SGPT) 2018-02-04 11:03:00* Test Item Value Reference Range Interpretation Comments Alanine Aminotransferase (ALT/SGPT) (test code = 1742-6) 20 0-55 [facility] CenterTotal Kutfwyp0804-76-59 11:03:00* Test Item Value Reference Range Interpretation Comments Total Protein (test code = 2885-2) 6.7 6.5-8.1 [facility] CenterAlbumin2018-07-15 11:03:00* Test Item Value Reference Range Interpretation Comments Albumin (test code = 1751-7) 3.3 3.5-5.0 L [facility] CenterGlobulin2018-07-15 11:03:00* Test Item Value Reference Range Interpretation Comments Globulin (test code = 87151-3) 3.4 2.3-3.5 [facility] CenterAlbumin/Globulin Sjoui3135-43-24 11:03:00 * Test Item Value Reference Range Interpretation Comments Albumin/Globulin Ratio (test code = 1759-0) 1.0 0.8-2.0 [facility] CenterAlkaline Gtpkeeqoweb2716-77-75 11:03:00* Test Item Value Reference Range Interpretation Comments Alkaline Phosphatase (test code = 6768-6) 63 40-150 [facility] CenterAmylase Eelkj1298-77-42 11:03:00* Test Item Value Reference Range Interpretation Comments Amylase Level (test code = 1798-8) 30 25-125 [facility] CenterLipase2018-07-15 11:03:00* Test Item Value Reference Range Interpretation Comments Lipase (test code = 3040-3) 16 -78 [facility] CenterMagnesium Rdxbr5889-17-01 11:03:00* Test Item Value Reference Range Interpretation Comments Magnesium Level (test code = 58654-3) 1.7 1.3-2.1 [facility] CenterAmylase Qwwxf6246-91-26 11:03:00* Test Item Value Reference Range Interpretation Comments Amylase Level (test code = 1798-8) 30 25-125 [facility] CenterLipase2018-07-15 11:03:00* Test Item Value Reference Range Interpretation Comments Lipase (test code = 3040-3) 16 8-78 [facility] CenterMagnesium Zaerh1351-08-78 11:03:00* Test Item Value Reference Range Interpretation Comments Magnesium Level (test code = 90007-8) 1.7 1.3-2.1 [facility] CenterAmylase Mhwqb2831-73-91 11:03:00* Test Item Value Reference Range Interpretation Comments Amylase Level (test code = 1798-8) 30 25-125 [facility] CenterLipase2018-07-15 11:03:00* Test Item Value Reference Range Interpretation Comments Lipase (test code = 3040-3) 16 [facility] CenterMagnesium Fuybt8147-48-93 11:03:00* Test Item Value Reference Range Interpretation Comments Magnesium Level (test code = 30765-2) 1.7 1.3-2.1 [facility] CenterAmylase Fmmqs1520-67-48 11:03:00* Test Item Value Reference Range Interpretation Comments Amylase Level (test code = 1798-8) 30 25-125 [facility] CenterLipase2018-07-15 11:03:00* Test Item Value Reference Range Interpretation Comments Lipase (test code = 3040-3) 16 [facility] CenterMagnesium Ddnag3519-87-24 11:03:00* Test Item Value Reference Range Interpretation Comments Magnesium Level (test code = 23753-4) 1.7 1.3-2.1 [facility] CenterAmylase Bzvfo2216-15-03 11:03:00* Test Item Value Reference Range Interpretation Comments Amylase Level (test code = 1798-8) 30 -125 [facility] CenterLipase2018-07-15 11:03:00* Test Item Value Reference Range Interpretation Comments Lipase (test code = 3040-3) 16 [facility] CenterB-Type Natriuretic Gefqtnl3052-22-34 23:54:00* Test Item Value Reference Range Interpretation Comments B-Type Natriuretic Peptide (test code = 13337-1) 38.5 0-100 [facility] CenterCreatine Kinase MH9887-60-11 23:54:00* Test Item Value Reference Range Interpretation Comments Creatine Kinase MB (test code = 41086-9) 1.10 0-5.0 [facility] CenterTroponin I1797-11-60 23:54:00* Test Item Value Reference Range Interpretation Comments Troponin I (test code = VZQ2422) -0.001 0-0.300 [facility] CenterUrine FFP6540-57-08 23:42:00* Test Item Value Reference Range Interpretation Comments Urine WBC (test code = 5821-4) 0-5 0-5 [facility] CenterUrine CDO8851-97-35 23:42:00* Test Item Value Reference Range Interpretation Comments Urine RBC (test code = 77828-3) NONE 0-5 [facility] CenterUrine Qbgpqrzm9937-80-98 23:42:00* Test Item Value Reference Range Interpretation Comments Urine Bacteria (test code = 75835-4) RARE NONE [facility] CenterUrine Epithelial Yvpeu8182-07-89 23:42:00 * Test Item Value Reference Range Interpretation Comments Urine Epithelial Cells (test code = 01838-2) RARE NONE [facility] Centerodium Fvmyk4032-38-94 23:39:00* Test Item Value Reference Range Interpretation Comments Sodium Level (test code = 2951-2) 135 136-145 L [facility] CenterPotassium Ctldm1493-63-60 23:39:00* Test Item Value Reference Range Interpretation Comments Potassium Level (test code = 2823-3) 4.3 3.5-5.1 [facility] CenterChloride Knxpu1920-54-79 23:39:00* Test Item Value Reference Range Interpretation Comments Chloride Level (test code = 2075-0) 99 98-107 [facility] CenterCarbon Dioxide Dcxfs5123-23-86 23:39:00* Test Item Value Reference Range Interpretation Comments Carbon Dioxide Level (test code = 2028-9) 25 22-29 [facility] CenterAnion Wlb1375-46-48 23:39:00* Test Item Value Reference Range Interpretation Comments Anion Gap (test code = 69420-9) 15.3 8-16 [facility] CenterBlood Urea Cfmevwce7820-31-99 23:39:00* Test Item Value Reference Range Interpretation Comments Blood Urea Nitrogen (test code = 3094-0) 33 7-26 H [facility] CenterCreatinine2018-07-11 23:39:00* Test Item Value Reference Range Interpretation Comments Creatinine (test code = 2160-0) 1.41 0.57-1.11 H [facility] CenterBUN/Creatinine Fydme9930-96-84 23:39:00* Test Item Value Reference Range Interpretation Comments BUN/Creatinine Ratio (test code = 3097-3) 23 6-25 [facility] CenterEstimat Glomerular Filtration Rate 2018-01-31 23:39:00* Test Item Value Reference Range Interpretation Comments Estimat Glomerular Filtration Rate (test code = 11703-7) 38 >60 L Ranges were taken from the National Kidney Disease Education Program and the [facility] Kid[facility] Foundation literature.Reference ranges:60 or greater: Xfjmzl97-80 ( for 3 consecutive months): Chronic kidney disease 15 or less: Kidney failureMission [facility] Medical CenterGlucose Nhdje3825-50-83 23:39:00* Test Item Value Reference Range Interpretation Comments Glucose Level (test code = TSM2145) 622 74-118 [facility] Results called to Ann Rodriguez at 2338 on 01/31/18 by Andreea Olivier. [place]. [facility] CenterCalcium Dtsxx9917-18-31 23:39:00* Test Item Value Reference Range Interpretation Comments Calcium Level (test code = 33907-2) 9.3 8.4-10.2 [facility] CenterMagnesium Dzanb9902-04-73 23:39:00* Test Item Value Reference Range Interpretation Comments Magnesium Level (test code = 88928-5) 2.0 1.3-2.1 [facility] [facility] Ygtfgsydq2729-33-75 23:39:00* Test Item Value Reference Range Interpretation Comments Total Bilirubin (test code = 1975-2) 0.3 0.2-1.2 [facility] CenterAspartate Amino Transf (AST/SGOT) 2018-01-31 23:39:00* Test Item Value Reference Range Interpretation Comments Aspartate Amino Transf (AST/SGOT) (test code = Aspartate Amino Transf (AST/SGOT)) 10 5-34 [facility] CenterAlanine Aminotransferase (ALT/SGPT) 2018-01-31 23:39:00* Test Item Value Reference Range Interpretation Comments Alanine Aminotransferase (ALT/SGPT) (test code = 1742-6) 18 0-55 [facility] CenterTotal Njzzaqe1853-69-62 23:39:00* Test Item Value Reference Range Interpretation Comments Total Protein (test code = 2885-2) 6.7 6.5-8.1 [facility] CenterAlbumin2018-07-11 23:39:00* Test Item Value Reference Range Interpretation Comments Albumin (test code = 1751-7) 3.4 3.5-5.0 L [facility] CenterGlobulin2018-07-11 23:39:00* Test Item Value Reference Range Interpretation Comments Globulin (test code = 92513-2) 3.3 2.3-3.5 [facility] CenterAlbumin/Globulin Rkbnf0227-23-93 23:39:00 * Test Item Value Reference Range Interpretation Comments Albumin/Globulin Ratio (test code = 1759-0) 1.0 0.8-2.0 [facility] CenterAlkaline Nwaheqtwbya7101-05-02 23:39:00* Test Item Value Reference Range Interpretation Comments Alkaline Phosphatase (test code = 6768-6) 63 40-150 [facility] CenterCreatine Suqkti9701-27-79 23:39:00* Test Item Value Reference Range Interpretation Comments Creatine Kinase (test code = 2157-6) 40 29-168 [facility] CenterProthrombin Ahhr2449-38-57 23:34:00* Test Item Value Reference Range Interpretation Comments Prothrombin Time (test code = 5902-2) 13.5 11.9-14.5 [facility] CenterProthromb Time International Ratio 2018-01-31 23:34:00* Test Item Value Reference Range Interpretation Comments Prothromb Time International Ratio (test code = 6301-6) 1.11 Oral Anticoagulant Therapy INR Values:1. Low Intensity Therapy 1.5 - 2.02 . Moderate Intensity Therapy 2.0 - 3.03. High Intensity Therapy(1) 2.5 - 3. 54. High Intensity Therapy(2) 3.0 - 4.05. Panic Value INR > 5.0 [facility] CenterActivated Partial Thromboplast Time 2018-01-31 23:34:00* Test Item Value Reference Range Interpretation Comments Activated Partial Thromboplast Time (test code = 10638-2) 23.4 23.8-35.5 L [facility] CenterUrine Cjgog4535-15-71 23:34:00* Test Item Value Reference Range Interpretation Comments Urine Color (test code = 5778-6) YELLOW YELLOW [facility] CenterUrine Ugleyix8715-99-19 23:34:00* Test Item Value Reference Range Interpretation Comments Urine Clarity (test code = 76428-7) CLEAR CLEAR [facility] CenterUrine Specific Dabdpoy0819-44-10 23:34:00 * Test Item Value Reference Range Interpretation Comments Urine Specific Harmony (test code = 5811-5) 1.010 1.010-1.02 5 [facility] CenterUrine hJ4931-59-58 23:34:00* Test Item Value Reference Range Interpretation Comments Urine pH (test code = 77765-5) 6 5-7 [facility] CenterUrine Leukocyte Daczjwri9389-38-38 23:34:00* Test Item Value Reference Range Interpretation Comments Urine Leukocyte Esterase (test code = 5799-2) NEGATIVE NEGATIVE [facility] CenterUrine Cjppatk0116-75-45 23:34:00* Test Item Value Reference Range Interpretation Comments Urine Nitrite (test code = 05369-9) NEGATIVE NEGATIVE [facility] CenterUrine Xwkoytw1656-59-19 23:34:00* Test Item Value Reference Range Interpretation Comments Urine Protein (test code = 5804-0) NEGATIVE NEGATIVE [facility] CenterUrine Glucose (UA)2018-01-31 23:34:00* Test Item Value Reference Range Interpretation Comments Urine Glucose (UA) (test code = 2349-9) 3+ NEGATIVE H [facility] CenterUrine Wdbbgac3757-43-39 23:34:00* Test Item Value Reference Range Interpretation Comments Urine Ketones (test code = 38658-9) NEGATIVE NEGATIVE [facility] CenterUrine Dagbpdzqyqnc8327-81-64 23:34:00* Test Item Value Reference Range Interpretation Comments Urine Urobilinogen (test code = 17453-2) 0.2 0.2-1 [facility] CenterUrine Aiabxtapz7483-99-60 23:34:00* Test Item Value Reference Range Interpretation Comments Urine Bilirubin (test code = 1978-6) NEGATIVE NEGATIVE [facility] CenterUrine Zyyyp3061-31-14 23:34:00* Test Item Value Reference Range Interpretation Comments Urine Blood (test code = 80639-9) NEGATIVE NEGATIVE [facility] CenterProthrombin Ymik6899-72-86 23:34:00* Test Item Value Reference Range Interpretation Comments Prothrombin Time (test code = 5902-2) 13.5 11.9-14.5 [facility] CenterProthromb Time International Ratio 2018-01-31 23:34:00* Test Item Value Reference Range Interpretation Comments Prothromb Time International Ratio (test code = 6301-6) 1.11 Oral Anticoagulant Therapy INR Values:1. Low Intensity Therapy 1.5 - 2.02 . Moderate Intensity Therapy 2.0 - 3.03. High Intensity Therapy(1) 2.5 - 3. 54. High Intensity Therapy(2) 3.0 - 4.05. Panic Value INR > 5.0 [facility] CenterActivated Partial Thromboplast Time 2018-01-31 23:34:00* Test Item Value Reference Range Interpretation Comments Activated Partial Thromboplast Time (test code = 69633-7) 23.4 23.8-35.5 L [facility] CenterProthrombin Lxbv7492-33-56 23:34:00* Test Item Value Reference Range Interpretation Comments Prothrombin Time (test code = 5902-2) 13.5 11.9-14.5 [facility] CenterProthromb Time International Ratio 2018-01-31 23:34:00* Test Item Value Reference Range Interpretation Comments Prothromb Time International Ratio (test code = 6301-6) 1.11 Oral Anticoagulant Therapy INR Values:1. Low Intensity Therapy 1.5 - 2.02 . Moderate Intensity Therapy 2.0 - 3.03. High Intensity Therapy(1) 2.5 - 3. 54. High Intensity Therapy(2) 3.0 - 4.05. Panic Value INR > 5.0 [facility] CenterActivated Partial Thromboplast Time 2018-01-31 23:34:00* Test Item Value Reference Range Interpretation Comments Activated Partial Thromboplast Time (test code = 54254-5) 23.4 23.8-35.5 L [facility] CenterProthrombin Bvda9850-18-18 23:34:00* Test Item Value Reference Range Interpretation Comments Prothrombin Time (test code = 5902-2) 13.5 11.9-14.5 [facility] CenterProthromb Time International Ratio 2018-01-31 23:34:00* Test Item Value Reference Range Interpretation Comments Prothromb Time International Ratio (test code = 6301-6) 1.11 Oral Anticoagulant Therapy INR Values:1. Low Intensity Therapy 1.5 - 2.02 . Moderate Intensity Therapy 2.0 - 3.03. High Intensity Therapy(1) 2.5 - 3. 54. High Intensity Therapy(2) 3.0 - 4.05. Panic Value INR > 5.0 [facility] CenterActivated Partial Thromboplast Time 2018-01-31 23:34:00* Test Item Value Reference Range Interpretation Comments Activated Partial Thromboplast Time (test code = 46310-5) 23.4 23.8-35.5 L [facility] CenterCHEST SINGLE (PORTABLE)2018-01-31 23:25:00 [place] [address] Patient Name: KALYANI TALAVERA MR #: [id number] : 1955 Age/Sex: 62/F Req #: [id number] Adm Physician: Ordered by: FLO TOLBERT MD Report #: [id number] Location: ER Room/Bed: Procedure: [id number] DX/CHEST SINGLE (PORTABLE) E xam Date: 01/31/18 [...] COPY TO: FLO TOLBERT MD White Blood Xlkhl8017-52-65 23:20:00* Test Item Value Reference Range Interpretation Comments White Blood Count (test code = 6690-2) 5.55 4.8-10.8 [facility] CenterRed Blood Zjzjs4611-59-60 23:20:00* Test Item Value Reference Range Interpretation Comments Red Blood Count (test code = 789-8) 4.21 3.6-5.1 [facility] CenterHemoglobin2018-07-11 23:20:00* Test Item Value Reference Range Interpretation Comments Hemoglobin (test code = 78142-7) 10.6 12.0-16.0 L [facility] CenterHematocrit2018-07-11 23:20:00* Test Item Value Reference Range Interpretation Comments Hematocrit (test code = 4544-3) 34.8 34.2-44.1 [facility] CenterMean Corpuscular Kczxdj1335-59-36 23:20:00* Test Item Value Reference Range Interpretation Comments Mean Corpuscular Volume (test code = 787-2) 82.7 81-99 [facility] CenterMean Corpuscular Vtxdmjaoql5062-35-22 23:20:00* Test Item Value Reference Range Interpretation Comments Mean Corpuscular Hemoglobin (test code = 785-6) 25.2 28-32 L [facility] CenterMean Corpuscular Hemoglobin Concent 2018-01-31 23:20:00* Test Item Value Reference Range Interpretation Comments Mean Corpuscular Hemoglobin Concent (test code = 786-4) 30.5 31-35 L [facility] CenterRed Cell Distribution Uuten0878-92-49 23:20:00* Test Item Value Reference Range Interpretation Comments Red Cell Distribution Width (test code = 03570-5) 15.5 11.7 -14.4 H [facility] CenterPlatelet Ualzd0380-56-18 23:20:00* Test Item Value Reference Range Interpretation Comments Platelet Count (test code = 777-3) 176 140-360 [facility] CenterNeutrophils (%) (Auto)2018-01-31 23:20:00 * Test Item Value Reference Range Interpretation Comments Neutrophils (%) (Auto) (test code = 09067-4) 68.7 38.7-80.0 [facility] CenterLymphocytes (%) (Auto)2018-01-31 23:20:00 * Test Item Value Reference Range Interpretation Comments Lymphocytes (%) (Auto) (test code = 736-9) 21.8 18.0-39.1 [facility] CenterMonocytes (%) (Auto)2018-01-31 23:20:00* Test Item Value Reference Range Interpretation Comments Monocytes (%) (Auto) (test code = 5905-5) 5.0 4.4-11.3 [facility] CenterEosinophils (%) (Auto)2018-01-31 23:20:00 * Test Item Value Reference Range Interpretation Comments Eosinophils (%) (Auto) (test code = 713-8) 2.5 0.0-6.0 [facility] CenterBasophils (%) (Auto)2018-01-31 23:20:00* Test Item Value Reference Range Interpretation Comments Basophils (%) (Auto) (test code = 706-2) 0.9 0.0-1.0 [facility] CenterIM GRANULOCYTES %2018-01-31 23:20:00* Test Item Value Reference Range Interpretation Comments IM GRANULOCYTES % (test code = IM GRANULOCYTES %) 1.1 0.0- 1.0 H [facility] CenterNeutrophils # (Auto)2018-01-31 23:20:00* Test Item Value Reference Range Interpretation Comments Neutrophils # (Auto) (test code = 751-8) 3.8 2.1-6.9 [facility] CenterLymphocytes # (Auto)2018-01-31 23:20:00* Test Item Value Reference Range Interpretation Comments Lymphocytes # (Auto) (test code = 74558-2) 1.2 1.0-3.2 [facility] CenterMonocytes # (Auto)2018-01-31 23:20:00* Test Item Value Reference Range Interpretation Comments Monocytes # (Auto) (test code = 742-7) 0.3 0.2-0.8 [facility] CenterEosinophils # (Auto)2018-01-31 23:20:00* Test Item Value Reference Range Interpretation Comments Eosinophils # (Auto) (test code = 711-2) 0.1 0.0-0.4 [facility] CenterBasophils # (Auto)2018-01-31 23:20:00* Test Item Value Reference Range Interpretation Comments Basophils # (Auto) (test code = 704-7) 0.1 0.0-0.1 [facility] CenterAbsolute Immature Granulocyte (auto 2018-01-31 23:20:00* Test Item Value Reference Range Interpretation Comments Absolute Immature Granulocyte (auto (joseph t code = Absolute Immature Granulocyte (auto) 0.06 0-0.1 [facility] CenterBedside Fkbnhfk5983-07-63 18:58:00* Test Item Value Reference Range Interpretation Comments Bedside Glucose (test code = 46844-8) 293 70-120 H Meter ID: [id number] [facility] 2017-12-28 14:17:00* Test Item Value Reference Range Interpretation Comments Bedside Glucose (test code = 80801-8) 330 70-120 H Meter ID: [id number] [facility] ChildrenKNEE RIGHT THREE MLZTB9466-17-00 10:49:00 [facility] [address] [place] [address] Patient Name: KALYANI TALAVERA MR #: [id number] : 1955 Age/Sex: 62/F Req #: [id number] Adm Physician: BENJAMIN MASTERS MD Ordered by: LUCILLE OLIVO MD Report #: [id number] Location: [facility] Room/Bed: [place] [address] Procedure: [id number] DX/KNEE RIGHT THREE VIEWS Exam Date: 12/27/17 [...] evidence of acute traumatic injury. Dictated by: Lamonte Munoz M.D. on 12/27/2017 at 10:49 Electronically approved by: Lamonte Singh on 12/27/2017 at 10:49 Dictated By: LAMONTE MUNOZ MD Elec tronically Signed By: LAMONTE MUNOZ MD on 12/27/17 1049 Transcribed By: ZOLTAN on 12/27/17 1049 COPY TO: LUCILLE OLIVO MD Sodium Level 2017-12-25 09:24:00* Test Item Value Reference Range Interpretation Comments Sodium Level (test code = 2951-2) 137 136-145 [facility] CenterPotassium Tubgb9220-91-00 09:24:00* Test Item Value Reference Range Interpretation Comments Potassium Level (test code = 2823-3) 4.5 3.5-5.1 [facility] CenterChloride Kgooy0798-43-03 09:24:00* Test Item Value Reference Range Interpretation Comments Chloride Level (test code = 2075-0) 102 98-107 [facility] CenterCarbon Dioxide Yngkc6155-32-21 09:24:00* Test Item Value Reference Range Interpretation Comments Carbon Dioxide Level (test code = 2028-9) 28 22-29 [facility] CenterAnion Nwy4204-94-65 09:24:00* Test Item Value Reference Range Interpretation Comments Anion Gap (test code = 20175-0) 11.5 8-16 [facility] CenterBlood Urea Ygydqklh5654-85-37 09:24:00* Test Item Value Reference Range Interpretation Comments Blood Urea Nitrogen (test code = 3094-0) 21 7-26 [facility] CenterCreatinine2018-06-04 09:24:00* Test Item Value Reference Range Interpretation Comments Creatinine (test code = 2160-0) 1.09 0.57-1.11 [facility] CenterBUN/Creatinine Gagof5764-68-79 09:24:00* Test Item Value Reference Range Interpretation Comments BUN/Creatinine Ratio (test code = 3097-3) 19 6-25 [facility] CenterEstimat Glomerular Filtration Rate 2017-12-25 09:24:00* Test Item Value Reference Range Interpretation Comments Estimat Glomerular Filtration Rate (test code = 23998-4) 51 >60 L Ranges were taken from the National Kidney Disease Education Program and the [facility]nhrm[facility] [employer] literature.Reference ranges:60 or greater: Twawfj50-83 ( for 3 consecutive months): Chronic kidney disease 15 or less: Kidney failureM[facility] Regional Medical CenterGlucose Gqdkg7414-05-95 09:24:00* Test Item Value Reference Range Interpretation Comments Glucose Level (test code = BBA0985) 458 74-118 HH Results called to RANCHO CONTI RN at 0924 on 12/25/17 by Audi Manriquez. RB OK.Thi s test has been rerun and double checked for accuracy.[facility] CenterCalcium Guijh9032-83-38 09:24:00* Test Item Value Reference Range Interpretation Comments Calcium Level (test code = 68241-7) 9.0 8.4-10.2 [facility] CenterCreatine Kinase OX9748-41-49 16:42:00* Test Item Value Reference Range Interpretation Comments Creatine Kinase MB (test code = 40609-2) 2.60 0-5.0 [facility] CenterTroponin F7989-06-15 16:42:00* Test Item Value Reference Range Interpretation Comments Troponin I (test code = KYS5568) -0.001 0-0.300 [facility] CenterCreatine Hrnucl8329-13-60 16:36:00* Test Item Value Reference Range Interpretation Comments Creatine Kinase (test code = 2157-6) 60 29-168 [facility] CenterTotal Laukmdtna7039-16-68 08:48:00* Test Item Value Reference Range Interpretation Comments Total Bilirubin (test code = 1975-2) 0.3 0.2-1.2 [facility] CenterAspartate Amino Transf (AST/SGOT) 2017-12-24 08:48:00* Test Item Value Reference Range Interpretation Comments Aspartate Amino Transf (AST/SGOT) (test code = Aspartate Amino Transf (AST/SGOT)) 23 5-34 [facility] CenterAlanine Aminotransferase (ALT/SGPT) 2017-12-24 08:48:00* Test Item Value Reference Range Interpretation Comments Alanine Aminotransferase (ALT/SGPT) (test code = 1742-6) 45 0-55 [facility] CenterTotal Yzqxkhg5895-64-92 08:48:00* Test Item Value Reference Range Interpretation Comments Total Protein (test code = 2885-2) 6.3 6.5-8.1 L [facility] CenterAlbumin2018-06-03 08:48:00* Test Item Value Reference Range Interpretation Comments Albumin (test code = 1751-7) 3.2 3.5-5.0 L [facility] CenterGlobulin2018-06-03 08:48:00* Test Item Value Reference Range Interpretation Comments Globulin (test code = 28393-1) 3.1 2.3-3.5 [facility] CenterAlbumin/Globulin Qzemx1936-52-63 08:48:00 * Test Item Value Reference Range Interpretation Comments Albumin/Globulin Ratio (test code = 1759-0) 1.0 0.8-2.0 [facility] CenterAlkaline Occqgjzkieb8590-99-13 08:48:00* Test Item Value Reference Range Interpretation Comments Alkaline Phosphatase (test code = 6768-6) 71 40-150 [facility] CenterTriglycerides Qvwuz6522-68-83 08:48:00* Test Item Value Reference Range Interpretation Comments Triglycerides Level (test code = 2571-8) 218 0-149 H [facility] CenterCholesterol Sfptu9543-37-39 08:48:00* Test Item Value Reference Range Interpretation Comments Cholesterol Level (test code = 2093-3) 168 0-199 Less than 200 mg/dL Low Atlr343 - 239 mg/dL Borderline Nypv378 m g/dl and greater High Risk [facility] CenterLDL Cvhkabakcgj2565-04-09 08:48:00* Test Item Value Reference Range Interpretation Comments LDL Cholesterol (test code = 2089-1) 96 60-130 [facility] CenterHDL Kdmofkfygdp7997-67-00 08:48:00* Test Item Value Reference Range Interpretation Comments HDL Cholesterol (test code = 2085-9) 28 40-60 L [facility] CenterCholesterol/HDL Mcjqj0462-49-14 08:48:00 * Test Item Value Reference Range Interpretation Comments Cholesterol/HDL Ratio (test code = 9830-1) 6.0 3.0-3.6 H [facility] CenterTriglycerides Jxwio7575-75-40 08:48:00* Test Item Value Reference Range Interpretation Comments Triglycerides Level (test code = 2571-8) 218 0-149 H [facility] CenterCholesterol Icbou4123-68-69 08:48:00* Test Item Value Reference Range Interpretation Comments Cholesterol Level (test code = 2093-3) 168 0-199 Less than 200 mg/dL Low Imbq631 - 239 mg/dL Borderline Zvwi297 m g/dl and greater High Risk [facility] CenterLDL Nrmynajqocu8249-79-91 08:48:00* Test Item Value Reference Range Interpretation Comments LDL Cholesterol (test code = 2089-1) 96 60-130 [facility] CenterHDL Tlovccqusej1057-06-48 08:48:00* Test Item Value Reference Range Interpretation Comments HDL Cholesterol (test code = 2085-9) 28 40-60 L [facility] CenterCholesterol/HDL Cnslf7494-49-53 08:48:00 * Test Item Value Reference Range Interpretation Comments Cholesterol/HDL Ratio (test code = 9830-1) 6.0 3.0-3.6 H [facility] CenterWhite Blood Smkqd0265-96-50 08:25:00* Test Item Value Reference Range Interpretation Comments White Blood Count (test code = 6690-2) 3.93 4.8-10.8 L [facility] CenterRed Blood Rlqlv0123-12-27 08:25:00* Test Item Value Reference Range Interpretation Comments Red Blood Count (test code = 789-8) 4.06 3.6-5.1 [facility] CenterHemoglobin2018-06-03 08:25:00* Test Item Value Reference Range Interpretation Comments Hemoglobin (test code = 65581-9) 10.2 12.0-16.0 L [facility] CenterHematocrit2018-06-03 08:25:00* Test Item Value Reference Range Interpretation Comments Hematocrit (test code = 4544-3) 34.0 34.2-44.1 L [facility] CenterMean Corpuscular Opagsr7572-50-64 08:25:00* Test Item Value Reference Range Interpretation Comments Mean Corpuscular Volume (test code = 787-2) 83.7 81-99 [facility] CenterMean Corpuscular Ddceudcuxo9755-71-08 08:25:00* Test Item Value Reference Range Interpretation Comments Mean Corpuscular Hemoglobin (test code = 785-6) 25.1 28-32 L [facility] CenterMean Corpuscular Hemoglobin Concent 2017-12-24 08:25:00* Test Item Value Reference Range Interpretation Comments Mean Corpuscular Hemoglobin Concent (test code = 786-4) 30.0 31-35 L [facility] CenterRed Cell Distribution Xyeju8068-38-40 08:25:00* Test Item Value Reference Range Interpretation Comments Red Cell Distribution Width (test code = 36748-2) 15.2 11.7 -14.4 H [facility] CenterPlatelet Ipahm9540-40-11 08:25:00* Test Item Value Reference Range Interpretation Comments Platelet Count (test code = 777-3) 169 140-360 [facility] CenterNeutrophils (%) (Auto)2017-12-24 08:25:00 * Test Item Value Reference Range Interpretation Comments Neutrophils (%) (Auto) (test code = 62083-8) 59.0 38.7-80.0 [facility] CenterLymphocytes (%) (Auto)2017-12-24 08:25:00 * Test Item Value Reference Range Interpretation Comments Lymphocytes (%) (Auto) (test code = 736-9) 27.5 18.0-39.1 [facility] CenterMonocytes (%) (Auto)2017-12-24 08:25:00* Test Item Value Reference Range Interpretation Comments Monocytes (%) (Auto) (test code = 5905-5) 6.6 4.4-11.3 [facility] CenterEosinophils (%) (Auto)2017-12-24 08:25:00 * Test Item Value Reference Range Interpretation Comments Eosinophils (%) (Auto) (test code = 713-8) 4.8 0.0-6.0 [facility] CenterBasophils (%) (Auto)2017-12-24 08:25:00* Test Item Value Reference Range Interpretation Comments Basophils (%) (Auto) (test code = 706-2) 1.3 0.0-1.0 H [facility] CenterIM GRANULOCYTES %2017-12-24 08:25:00* Test Item Value Reference Range Interpretation Comments IM GRANULOCYTES % (test code = IM GRANULOCYTES %) 0.8 0.0- 1.0 [facility] CenterNeutrophils # (Auto)2017-12-24 08:25:00* Test Item Value Reference Range Interpretation Comments Neutrophils # (Auto) (test code = 751-8) 2.3 2.1-6.9 [facility] CenterLymphocytes # (Auto)2017-12-24 08:25:00* Test Item Value Reference Range Interpretation Comments Lymphocytes # (Auto) (test code = 27125-1) 1.1 1.0-3.2 [facility] CenterMonocytes # (Auto)2017-12-24 08:25:00* Test Item Value Reference Range Interpretation Comments Monocytes # (Auto) (test code = 742-7) 0.3 0.2-0.8 [facility] CenterEosinophils # (Auto)2017-12-24 08:25:00* Test Item Value Reference Range Interpretation Comments Eosinophils # (Auto) (test code = 711-2) 0.2 0.0-0.4 [facility] CenterBasophils # (Auto)2017-12-24 08:25:00* Test Item Value Reference Range Interpretation Comments Basophils # (Auto) (test code = 704-7) 0.1 0.0-0.1 [facility] CenterAbsolute Immature Granulocyte (auto 2017-12-24 08:25:00* Test Item Value Reference Range Interpretation Comments Absolute Immature Granulocyte (auto (joseph t code = Absolute Immature Granulocyte (auto) 0.03 0-0.1 [facility] CenterB-Type Natriuretic Ltppriu3364-34-38 23:03:00* Test Item Value Reference Range Interpretation Comments B-Type Natriuretic Peptide (test code = 87955-1) 125.0 0-100 H [facility] CenterThyroid Stimulating Hormone (TSH) 2017-12-23 22:39:00* Test Item Value Reference Range Interpretation Comments Thyroid Stimulating Hormone (TSH) (test code = 03114-4) 0.865 0.350-4.940 [facility] CenterThyroid Stimulating Hormone (TSH) 2017-12-23 22:39:00* Test Item Value Reference Range Interpretation Comments Thyroid Stimulating Hormone (TSH) (test code = 34843-9) 0.865 0.350-4.940 [facility] CenterThyroid Stimulating Hormone (TSH) 2017-12-23 22:39:00* Test Item Value Reference Range Interpretation Comments Thyroid Stimulating Hormone (TSH) (test code = 01335-8) 0.865 0.350-4.940 [facility] CenterThyroid Stimulating Hormone (TSH) 2017-12-23 22:39:00* Test Item Value Reference Range Interpretation Comments Thyroid Stimulating Hormone (TSH) (test code = 35335-6) 0.865 0.350-4.940 [facility] CenterThyroid Stimulating Hormone (TSH) 2017-12-23 22:39:00* Test Item Value Reference Range Interpretation Comments Thyroid Stimulating Hormone (TSH) (test code = 43250-6) 0.865 0.350-4.940 [facility] CenterThyroid Stimulating Hormone (TSH) 2017-12-23 22:39:00* Test Item Value Reference Range Interpretation Comments Thyroid Stimulating Hormone (TSH) (test code = 81719-7) 0.865 0.350-4.940 [facility] CenterThyroid Stimulating Hormone (TSH) 2017-12-23 22:39:00* Test Item Value Reference Range Interpretation Comments Thyroid Stimulating Hormone (TSH) (test code = 97707-8) 0.865 0.350-4.940 [facility] CenterU[facility] LOH7975-01-83 22:23:00* Test Item Value Reference Range Interpretation Comments Urine WBC (test code = 5821-4) 0-5 0-5 [facility] KRB9324-68-71 22:23:00* Test Item Value Reference Range Interpretation Comments Urine RBC (test code = 73417-7) 0-5 0-5 [facility] Minxvtpq0673-86-16 22:23:00* Test Item Value Reference Range Interpretation Comments Urine Bacteria (test code = 73061-5) RARE NONE [facility] Epithelial Yufzj5949-64-66 22:23:00 * Test Item Value Reference Range Interpretation Comments Urine Epithelial Cells (test code = 13605-7) RARE NONE [facility] CenterU[facility] Rxphj8335-47-59 22:04:00* Test Item Value Reference Range Interpretation Comments Urine Color (test code = 5778-6) YELLOW YELLOW [facility] Dhwmzkf3921-22-69 22:04:00* Test Item Value Reference Range Interpretation Comments Urine Clarity (test code = 01782-2) CLEAR CLEAR [facility] CenterU[facility] Specific Xmafnvj8499-47-30 22:04:00 * Test Item Value Reference Range Interpretation Comments Urine Specific Harmony (test code = 5811-5) 1.010 1.010-1.02 5 [facility] hS5120-55-06 22:04:00* Test Item Value Reference Range Interpretation Comments Urine pH (test code = 34532-4) 6 5-7 [facility] Leukocyte Pvdwgtyq3892-34-04 22:04:00* Test Item Value Reference Range Interpretation Comments Urine Leukocyte Esterase (test code = 5799-2) NEGATIVE NEGATIVE [facility] Ztdcuya2060-14-91 22:04:00* Test Item Value Reference Range Interpretation Comments Urine Nitrite (test code = 34488-5) NEGATIVE NEGATIVE [facility] Eafugli0073-93-02 22:04:00* Test Item Value Reference Range Interpretation Comments Urine Protein (test code = 5804-0) NEGATIVE NEGATIVE [facility] Glucose (UA)2017-12-23 22:04:00* Test Item Value Reference Range Interpretation Comments Urine Glucose (UA) (test code = 2349-9) 3+ NEGATIVE H [facility] Teedadx0105-22-25 22:04:00* Test Item Value Reference Range Interpretation Comments Urine Ketones (test code = 57429-5) NEGATIVE NEGATIVE [facility] Wmcsadxbzvdm4608-69-91 22:04:00* Test Item Value Reference Range Interpretation Comments Urine Urobilinogen (test code = 59125-6) 0.2 0.2-1 [facility] Ikxyrniru1982-76-92 22:04:00* Test Item Value Reference Range Interpretation Comments Urine Bilirubin (test code = 1978-6) NEGATIVE NEGATIVE [facility] Bqrbk1799-64-97 22:04:00* Test Item Value Reference Range Interpretation Comments Urine Blood (test code = 44284-7) NEGATIVE NEGATIVE [facility] CenterMagnesium Wmsjv7214-89-22 22:03:00* Test Item Value Reference Range Interpretation Comments Magnesium Level (test code = 56710-5) 1.8 1.3-2.1 [facility] CenterProthrombin Iecm4101-90-45 21:58:00* Test Item Value Reference Range Interpretation Comments Prothrombin Time (test code = 5902-2) 13.6 11.9-14.5 [facility] CenterProthromb Time International Ratio 2017-12-23 21:58:00* Test Item Value Reference Range Interpretation Comments Prothromb Time International Ratio (test code = 6301-6) 1.13 Oral Anticoagulant Therapy INR Values:1. Low Intensity Therapy 1.5 - 2.02 . Moderate Intensity Therapy 2.0 - 3.03. High Intensity Therapy(1) 2.5 - 3. 54. High Intensity Therapy(2) 3.0 - 4.05. Panic Value INR > 5.0 [facility] CenterActivated Partial Thromboplast Time 2017-12-23 21:58:00* Test Item Value Reference Range Interpretation Comments Activated Partial Thromboplast Time (test code = 78678-3) 23.8 23.8-35.5 [facility] CenterBlood Rxeggbd6971-00-08 00:04:00* Test Item Value Reference Range Interpretation Comments Blood Culture (test code = 77604313) NO GROWTH AFTER 5 DAYS, FINAL REPORT [facility] Knovjlb4810-37-99 00:04:00* Test Item Value Reference Range Interpretation Comments Blood Culture (test code = 79123523) NO GROWTH AFTER 5 DAYS, FINAL REPORT [facility] Fcegbzr3966-68-77 00:04:00* Test Item Value Reference Range Interpretation Comments Blood Culture (test code = 78787325) NO GROWTH AFTER 5 DAYS, FINAL REPORT [facility] Cxgbfxv5692-67-89 00:04:00* Test Item Value Reference Range Interpretation Comments Blood Culture (test code = 57021586) NO GROWTH AFTER 5 DAYS, FINAL REPORT [facility] Dilpisj0431-69-97 00:04:00* Test Item Value Reference Range Interpretation Comments Blood Culture (test code = 78606794) NO GROWTH AFTER 5 DAYS, FINAL REPORT [facility] Pwyjxjh7501-21-46 00:04:00* Test Item Value Reference Range Interpretation Comments Blood Culture (test code = 26620340) NO GROWTH AFTER 5 DAYS, FINAL REPORT [facility] Fjwevpw6437-95-03 00:04:00* Test Item Value Reference Range Interpretation Comments Blood Culture (test code = 54427785) NO GROWTH AFTER 5 DAYS, FINAL REPORT [facility] Wfijlru1116-95-46 00:04:00* Test Item Value Reference Range Interpretation Comments Blood Culture (test code = 74411412) NO GROWTH AFTER 5 DAYS, FINAL REPORT [facility] Pnogrrf9766-93-59 00:04:00* Test Item Value Reference Range Interpretation Comments Blood Culture (test code = 44043247) NO GROWTH AFTER 5 DAYS, FINAL REPORT [facility] Uobjh4431-64-51 00:58:00* Test Item Value Reference Range Interpretation Comments Sodium Level (test code = 2951-2) 137 136-145 [facility] Yrzky0317-02-36 00:58:00* Test Item Value Reference Range Interpretation Comments Potassium Level (test code = 2823-3) 4.1 3.5-5.1 [facility] CenterChloride Ewrwy7045-31-99 00:58:00* Test Item Value Reference Range Interpretation Comments Chloride Level (test code = 2075-0) 105 98-107 [facility] CenterCarbon Dioxide Mcmrf3910-73-92 00:58:00* Test Item Value Reference Range Interpretation Comments Carbon Dioxide Level (test code = 2028-9) 21 22-29 L [facility] CenterAnion Xxk6093-36-30 00:58:00* Test Item Value Reference Range Interpretation Comments Anion Gap (test code = 81373-0) 15.1 8-16 [facility] CenterBlood Urea Ydiccopg2187-61-93 00:58:00* Test Item Value Reference Range Interpretation Comments Blood Urea Nitrogen (test code = 3094-0) 37 7-26 H [facility] CenterCreatinine2018-03-22 00:58:00* Test Item Value Reference Range Interpretation Comments Creatinine (test code = 2160-0) 1.54 0.57-1.11 H [facility] CenterBUN/Creatinine Ffmqs4351-09-72 00:58:00* Test Item Value Reference Range Interpretation Comments BUN/Creatinine Ratio (test code = 3097-3) 24 6-25 [facility] CenterEstimat Glomerular Filtration Rate 2017-10-12 00:58:00* Test Item Value Reference Range Interpretation Comments Estimat Glomerular Filtration Rate (test code = 48410-4) 34 >60 L Ranges were taken from the National Kidney Disease Education Program and the [facility] literature.Reference ranges:60 or greater: Jslwqx22-26 ( for 3 consecutive months): Chronic kidney disease 15 or less: Kidney failureMission Regional Medical CenterGlucose Bwqgz2979-49-95 00:58:00* Test Item Value Reference Range Interpretation Comments Glucose Level (test code = PBV0886) 286 74-118 H [facility] CenterCalcium Ihbwe6162-00-44 00:58:00* Test Item Value Reference Range Interpretation Comments Calcium Level (test code = 36272-3) 8.7 8.4-10.2 [facility] CenterMagnesium Ysfld4343-70-71 00:58:00* Test Item Value Reference Range Interpretation Comments Magnesium Level (test code = 23187-2) 1.6 1.3-2.1 [facility] CenterTotal Syhjcrnoo1810-73-90 00:58:00* Test Item Value Reference Range Interpretation Comments Total Bilirubin (test code = 1975-2) 0.3 0.2-1.2 [facility] CenterAspartate Amino Transf (AST/SGOT) 2017-10-12 00:58:00* Test Item Value Reference Range Interpretation Comments Aspartate Amino Transf (AST/SGOT) (test code = Aspartate Amino Transf (AST/SGOT)) 22 5-34 [facility] CenterAlanine Aminotransferase (ALT/SGPT) 2017-10-12 00:58:00* Test Item Value Reference Range Interpretation Comments Alanine Aminotransferase (ALT/SGPT) (test code = 1742-6) 24 0-55 [facility] CenterTotal Wwqjkfv0654-70-76 00:58:00* Test Item Value Reference Range Interpretation Comments Total Protein (test code = 2885-2) 6.5 6.5-8.1 [facility] CenterAlbumin2018-03-22 00:58:00* Test Item Value Reference Range Interpretation Comments Albumin (test code = 1751-7) 3.2 3.5-5.0 L [facility] CenterGlobulin2018-03-22 00:58:00* Test Item Value Reference Range Interpretation Comments Globulin (test code = 12824-0) 3.3 2.3-3.5 [facility] CenterAlbumin/Globulin Uzxbl2390-78-04 00:58:00 * Test Item Value Reference Range Interpretation Comments Albumin/Globulin Ratio (test code = 1759-0) 1.0 0.8-2.0 [facility] CenterAlkaline Lioynkouesa8216-14-64 00:58:00* Test Item Value Reference Range Interpretation Comments Alkaline Phosphatase (test code = 6768-6) 69 40-150 [facility] CenterB-Type Natriuretic Ygrhavt5619-90-53 00:58:00* Test Item Value Reference Range Interpretation Comments B-Type Natriuretic Peptide (test code = 04788-7) 46.4 0-100 [facility] CenterCreatine Tfpzut6042-76-77 00:58:00* Test Item Value Reference Range Interpretation Comments Creatine Kinase (test code = 2157-6) 86 29-168 [facility] CenterCreatine Kinase NT8881-60-13 00:58:00* Test Item Value Reference Range Interpretation Comments Creatine Kinase MB (test code = 32770-7) 3.00 0-5.0 [facility] CenterTroponin U4974-48-36 00:58:00* Test Item Value Reference Range Interpretation Comments Troponin I (test code = MRK6323) -0.001 0-0.300 [facility] Centerodium Vfxzl1281-72-56 00:58:00* Test Item Value Reference Range Interpretation Comments Sodium Level (test code = 2951-2) 137 136-145 [facility] CenterPotassium Bhrey1573-98-89 00:58:00* Test Item Value Reference Range Interpretation Comments Potassium Level (test code = 2823-3) 4.1 3.5-5.1 [facility] CenterChloride Tvqhv0820-53-53 00:58:00* Test Item Value Reference Range Interpretation Comments Chloride Level (test code = 2075-0) 105 98-107 [facility] CenterCarbon Dioxide Lfiwc5399-20-29 00:58:00* Test Item Value Reference Range Interpretation Comments Carbon Dioxide Level (test code = 2028-9) 21 22-29 L [facility] CenterAnion Yqe2970-74-65 00:58:00* Test Item Value Reference Range Interpretation Comments Anion Gap (test code = 88356-2) 15.1 8-16 [facility] CenterBlood Urea Gkktyoyo4872-42-69 00:58:00* Test Item Value Reference Range Interpretation Comments Blood Urea Nitrogen (test code = 3094-0) 37 7-26 H [facility] CenterCreatinine2018-03-22 00:58:00* Test Item Value Reference Range Interpretation Comments Creatinine (test code = 2160-0) 1.54 0.57-1.11 H [facility] CenterBUN/Creatinine Fehks9050-41-32 00:58:00* Test Item Value Reference Range Interpretation Comments BUN/Creatinine Ratio (test code = 3097-3) 24 6-25 [facility] CenterEstimat Glomerular Filtration Rate 2017-10-12 00:58:00* Test Item Value Reference Range Interpretation Comments Estimat Glomerular Filtration Rate (test code = 49592-9) 34 >60 L Ranges were taken from the National Kidney Disease Education Program and the [facility] Kidney Foundation literature.Reference ranges:60 or greater: Qzpcto24-94 ( for 3 consecutive months): Chronic kidney disease 15 or less: Kidney failureCH[facility] For ChildrenGlucose Hkreu6517-53-58 00:58:00* Test Item Value Reference Range Interpretation Comments Glucose Level (test code = FKF0038) 286 74-118 H [facility] CenterCalcium Ydwwh2496-62-11 00:58:00* Test Item Value Reference Range Interpretation Comments Calcium Level (test code = 01954-9) 8.7 8.4-10.2 [facility] CenterMagnesium Btcbc6726-87-58 00:58:00* Test Item Value Reference Range Interpretation Comments Magnesium Level (test code = 17814-7) 1.6 1.3-2.1 [facility] CenterTotal Gpedtxspj7624-05-70 00:58:00* Test Item Value Reference Range Interpretation Comments Total Bilirubin (test code = 1975-2) 0.3 0.2-1.2 [facility] CenterAspartate Amino Transf (AST/SGOT) 2017-10-12 00:58:00* Test Item Value Reference Range Interpretation Comments Aspartate Amino Transf (AST/SGOT) (test code = Aspartate Amino Transf (AST/SGOT)) 22 5-34 [facility] CenterAlanine Aminotransferase (ALT/SGPT) 2017-10-12 00:58:00* Test Item Value Reference Range Interpretation Comments Alanine Aminotransferase (ALT/SGPT) (test code = 1742-6) 24 0-55 [facility] CenterTotal Qqzvhtq1803-15-09 00:58:00* Test Item Value Reference Range Interpretation Comments Total Protein (test code = 2885-2) 6.5 6.5-8.1 [facility] CenterAlbumin2018-03-22 00:58:00* Test Item Value Reference Range Interpretation Comments Albumin (test code = 1751-7) 3.2 3.5-5.0 L [facility] CenterGlobulin2018-03-22 00:58:00* Test Item Value Reference Range Interpretation Comments Globulin (test code = 82489-4) 3.3 2.3-3.5 [facility] CenterAlbumin/Globulin Bdslu9754-66-18 00:58:00 * Test Item Value Reference Range Interpretation Comments Albumin/Globulin Ratio (test code = 1759-0) 1.0 0.8-2.0 [facility] CenterAlkaline Uiuetlyixml4830-31-07 00:58:00* Test Item Value Reference Range Interpretation Comments Alkaline Phosphatase (test code = 6768-6) 69 40-150 [facility] CenterB-Type Natriuretic Ziuoged5895-66-73 00:58:00* Test Item Value Reference Range Interpretation Comments B-Type Natriuretic Peptide (test code = 51360-2) 46.4 0-100 [facility] CenterCreatine Hjnvfz2580-28-25 00:58:00* Test Item Value Reference Range Interpretation Comments Creatine Kinase (test code = 2157-6) 86 29-168 [facility] CenterCreatine Kinase OM5768-83-70 00:58:00* Test Item Value Reference Range Interpretation Comments Creatine Kinase MB (test code = 47951-3) 3.00 0-5.0 [facility] CenterTroponin D6929-87-63 00:58:00* Test Item Value Reference Range Interpretation Comments Troponin I (test code = VXO8972) -0.001 0-0.300 [facility] Centerodium Ytdak6652-92-23 00:58:00* Test Item Value Reference Range Interpretation Comments Sodium Level (test code = 2951-2) 137 136-145 [facility] CenterPotassium Irmjy9610-18-79 00:58:00* Test Item Value Reference Range Interpretation Comments Potassium Level (test code = 2823-3) 4.1 3.5-5.1 [facility] CenterChloride Jbxwk3595-21-67 00:58:00* Test Item Value Reference Range Interpretation Comments Chloride Level (test code = 2075-0) 105 98-107 [facility] CenterCarbon Dioxide Frept2771-60-59 00:58:00* Test Item Value Reference Range Interpretation Comments Carbon Dioxide Level (test code = 2028-9) 21 22-29 L [facility] CenterAnion Xxu7066-17-28 00:58:00* Test Item Value Reference Range Interpretation Comments Anion Gap (test code = 90266-0) 15.1 8-16 [facility] CenterBlood Urea Hqxpwvjk5301-45-88 00:58:00* Test Item Value Reference Range Interpretation Comments Blood Urea Nitrogen (test code = 3094-0) 37 7-26 H [facility] CenterCreatinine2018-03-22 00:58:00* Test Item Value Reference Range Interpretation Comments Creatinine (test code = 2160-0) 1.54 0.57-1.11 H [facility] CenterBUN/Creatinine Lfott0999-84-21 00:58:00* Test Item Value Reference Range Interpretation Comments BUN/Creatinine Ratio (test code = 3097-3) 24 6-25 [facility] CenterEstimat Glomerular Filtration Rate 2017-10-12 00:58:00* Test Item Value Reference Range Interpretation Comments Estimat Glomerular Filtration Rate (test code = 65868-9) 34 >60 L Ranges were taken from the National Kidney Disease Education Program and the [facility] literature.Reference ranges:60 or greater: Bssyjk33-62 ( for 3 consecutive months): Chronic kidney disease 15 or less: Kidney failureM[facility] Medical CenterGlucose Vfusa5092-23-99 00:58:00* Test Item Value Reference Range Interpretation Comments Glucose Level (test code = XHS8939) 286 74-118 H [facility] CenterCalcium Mzqwa7889-13-47 00:58:00* Test Item Value Reference Range Interpretation Comments Calcium Level (test code = 78059-6) 8.7 8.4-10.2 [facility] CenterMagnesium Zeywi4393-32-53 00:58:00* Test Item Value Reference Range Interpretation Comments Magnesium Level (test code = 57589-6) 1.6 1.3-2.1 [facility] CenterTotal Fduvgbgqn0693-40-84 00:58:00* Test Item Value Reference Range Interpretation Comments Total Bilirubin (test code = 1975-2) 0.3 0.2-1.2 [facility] CenterAspartate Amino Transf (AST/SGOT) 2017-10-12 00:58:00* Test Item Value Reference Range Interpretation Comments Aspartate Amino Transf (AST/SGOT) (test code = Aspartate Amino Transf (AST/SGOT)) 22 5-34 [facility] CenterAlanine Aminotransferase (ALT/SGPT) 2017-10-12 00:58:00* Test Item Value Reference Range Interpretation Comments Alanine Aminotransferase (ALT/SGPT) (test code = 1742-6) 24 0-55 [facility] CenterTotal Nntigvy7830-32-11 00:58:00* Test Item Value Reference Range Interpretation Comments Total Protein (test code = 2885-2) 6.5 6.5-8.1 [facility] CenterAlbumin2018-03-22 00:58:00* Test Item Value Reference Range Interpretation Comments Albumin (test code = 1751-7) 3.2 3.5-5.0 L [facility] CenterGlobulin2018-03-22 00:58:00* Test Item Value Reference Range Interpretation Comments Globulin (test code = 73205-8) 3.3 2.3-3.5 [facility] CenterAlbumin/Globulin Hrxpl6646-14-75 00:58:00 * Test Item Value Reference Range Interpretation Comments Albumin/Globulin Ratio (test code = 1759-0) 1.0 0.8-2.0 [facility] CenterAlkaline Fkoqbbhreby1443-53-97 00:58:00* Test Item Value Reference Range Interpretation Comments Alkaline Phosphatase (test code = 6768-6) 69 40-150 [facility] CenterB-Type Natriuretic Amvhxow4082-98-44 00:58:00* Test Item Value Reference Range Interpretation Comments B-Type Natriuretic Peptide (test code = 53372-9) 46.4 0-100 [facility] CenterCreatine Jrxove5038-34-67 00:58:00* Test Item Value Reference Range Interpretation Comments Creatine Kinase (test code = 2157-6) 86 29-168 [facility] CenterCreatine Kinase YW3899-60-16 00:58:00* Test Item Value Reference Range Interpretation Comments Creatine Kinase MB (test code = 81946-9) 3.00 0-5.0 [facility] CenterTroponin I1310-46-19 00:58:00* Test Item Value Reference Range Interpretation Comments Troponin I (test code = SEJ2047) -0.001 0-0.300 [facility] CenterLactic Acid Kfwqg8658-16-21 00:40:00* Test Item Value Reference Range Interpretation Comments Lactic Acid Level (test code = Lactic Acid Level) 14.6 4.5- 19.8 [facility] CenterLactic Acid Eqswc3616-42-38 00:40:00* Test Item Value Reference Range Interpretation Comments Lactic Acid Level (test code = Lactic Acid Level) 14.6 4.5- 19.8 [facility] CenterLactic Acid Yqqny1241-18-72 00:40:00* Test Item Value Reference Range Interpretation Comments Lactic Acid Level (test code = Lactic Acid Level) 14.6 4.5- 19.8 [facility] CenterLactic Acid Alirc4054-44-24 00:40:00* Test Item Value Reference Range Interpretation Comments Lactic Acid Level (test code = Lactic Acid Level) 14.6 4.5- 19.8 [facility] CenterLactic Acid Icsak6293-91-33 00:40:00* Test Item Value Reference Range Interpretation Comments Lactic Acid Level (test code = Lactic Acid Level) 14.6 4.5- 19.8 [facility] CenterLactic Acid Yprqh8842-95-16 00:40:00* Test Item Value Reference Range Interpretation Comments Lactic Acid Level (test code = Lactic Acid Level) 14.6 4.5- 19.8 [facility] CenterLactic Acid Whife7728-02-08 00:40:00* Test Item Value Reference Range Interpretation Comments Lactic Acid Level (test code = Lactic Acid Level) 14.6 4.5- 19.8 [facility] CenterLactic Acid Sxfgh9442-83-62 00:40:00* Test Item Value Reference Range Interpretation Comments Lactic Acid Level (test code = Lactic Acid Level) 14.6 4.5- 19.8 [facility] CenterUrine YMJ8985-69-82 00:38:00* Test Item Value Reference Range Interpretation Comments Urine WBC (test code = 5821-4) 0-5 0-5 [facility] CenterUrine QCS1883-40-12 00:38:00* Test Item Value Reference Range Interpretation Comments Urine RBC (test code = 94702-2) 0-5 0-5 [facility] CenterUrine Lbigwhmv2352-94-31 00:38:00* Test Item Value Reference Range Interpretation Comments Urine Bacteria (test code = 89140-4) RARE NONE [facility] CenterUrine Epithelial Rixaj7580-72-62 00:38:00 * Test Item Value Reference Range Interpretation Comments Urine Epithelial Cells (test code = 68983-2) FEW NONE [facility] CenterUrine EHD8979-45-93 00:38:00* Test Item Value Reference Range Interpretation Comments Urine WBC (test code = 5821-4) 0-5 0-5 [facility] CenterUrine OVH8789-65-54 00:38:00* Test Item Value Reference Range Interpretation Comments Urine RBC (test code = 54337-8) 0-5 0-5 [facility] Dwxmawoj4404-73-15 00:38:00* Test Item Value Reference Range Interpretation Comments Urine Bacteria (test code = 49196-5) RARE NONE [facility] CenterUrine Epithelial Yjwjq4267-23-93 00:38:00 * Test Item Value Reference Range Interpretation Comments Urine Epithelial Cells (test code = 66803-0) FEW NONE [facility] CenterUrine WAD4831-17-71 00:38:00* Test Item Value Reference Range Interpretation Comments Urine WBC (test code = 5821-4) 0-5 0-5 [facility] CenterU[facility] VSA2903-93-44 00:38:00* Test Item Value Reference Range Interpretation Comments Urine RBC (test code = 90919-3) 0-5 0-5 [facility] CenterUrine Zhcypaie7583-42-34 00:38:00* Test Item Value Reference Range Interpretation Comments Urine Bacteria (test code = 39818-8) RARE NONE [facility] CenterUrine Epithelial Ftxoy5858-28-59 00:38:00 * Test Item Value Reference Range Interpretation Comments Urine Epithelial Cells (test code = 34561-0) FEW NONE [facility] CenterProthrombin Rwju2013-55-26 00:31:00* Test Item Value Reference Range Interpretation Comments Prothrombin Time (test code = 5902-2) 12.5 11.9-14.5 [facility] CenterProthromb Time International Ratio 2017-10-12 00:31:00* Test Item Value Reference Range Interpretation Comments Prothromb Time International Ratio (test code = 6301-6) 1.01 Oral Anticoagulant Therapy INR Values:1. Low Intensity Therapy 1.5 - 2.02 . Moderate Intensity Therapy 2.0 - 3.03. High Intensity Therapy(1) 2.5 - 3. 54. High Intensity Therapy(2) 3.0 - 4.05. Panic Value INR > 5.0 [facility] CenterActivated Partial Thromboplast Time 2017-10-12 00:31:00* Test Item Value Reference Range Interpretation Comments Activated Partial Thromboplast Time (test code = 04724-7) 17.7 23.8-35.5 L [facility] CenterProthrombin Ayhg1144-32-61 00:31:00* Test Item Value Reference Range Interpretation Comments Prothrombin Time (test code = 5902-2) 12.5 11.9-14.5 [facility] CenterProthromb Time International Ratio 2017-10-12 00:31:00* Test Item Value Reference Range Interpretation Comments Prothromb Time International Ratio (test code = 6301-6) 1.01 Oral Anticoagulant Therapy INR Values:1. Low Intensity Therapy 1.5 - 2.02 . Moderate Intensity Therapy 2.0 - 3.03. High Intensity Therapy(1) 2.5 - 3. 54. High Intensity Therapy(2) 3.0 - 4.05. Panic Value INR > 5.0 [facility]Act[facility] Thromboplast Time 2017-10-12 00:31:00* Test Item Value Reference Range Interpretation Comments Activated Partial Thromboplast Time (test code = 32325-1) 17.7 23.8-35.5 L [facility] CenterProthrombin Jhaw6198-99-13 00:31:00* Test Item Value Reference Range Interpretation Comments Prothrombin Time (test code = 5902-2) 12.5 11.9-14.5 [facility] CenterProthromb Time International Ratio 2017-10-12 00:31:00* Test Item Value Reference Range Interpretation Comments Prothromb Time International Ratio (test code = 6301-6) 1.01 Oral Anticoagulant Therapy INR Values:1. Low Intensity Therapy 1.5 - 2.02 . Moderate Intensity Therapy 2.0 - 3.03. High Intensity Therapy(1) 2.5 - 3. 54. High Intensity Therapy(2) 3.0 - 4.05. Panic Value INR > 5.0 [facility] CenterActivated Partial Thromboplast Time 2017-10-12 00:31:00* Test Item Value Reference Range Interpretation Comments Activated Partial Thromboplast Time (test code = 28001-5) 17.7 23.8-35.5 L [facility] CenterWhite Blood Bzuwc5099-43-31 00:19:00* Test Item Value Reference Range Interpretation Comments White Blood Count (test code = 6690-2) 6.20 4.8-10.8 [facility] CenterRed Blood Vduhb7420-59-33 00:19:00* Test Item Value Reference Range Interpretation Comments Red Blood Count (test code = 789-8) 4.11 3.6-5.1 [facility] CenterHemoglobin2018-03-22 00:19:00* Test Item Value Reference Range Interpretation Comments Hemoglobin (test code = 78038-1) 10.7 12.0-16.0 L [facility] CenterHematocrit2018-03-22 00:19:00* Test Item Value Reference Range Interpretation Comments Hematocrit (test code = 4544-3) 35.7 34.2-44.1 [facility] CenterMean Corpuscular Dswduf3637-71-54 00:19:00* Test Item Value Reference Range Interpretation Comments Mean Corpuscular Volume (test code = 787-2) 86.9 81-99 [facility] CenterMean Corpuscular Axegyealrm9530-23-26 00:19:00* Test Item Value Reference Range Interpretation Comments Mean Corpuscular Hemoglobin (test code = 785-6) 26.0 28-32 L [facility] CenterMean Corpuscular Hemoglobin Concent 2017-10-12 00:19:00* Test Item Value Reference Range Interpretation Comments Mean Corpuscular Hemoglobin Concent (test code = 786-4) 30.0 31-35 L [facility] CenterRed Cell Distribution Ekgny8498-41-77 00:19:00* Test Item Value Reference Range Interpretation Comments Red Cell Distribution Width (test code = 74223-7) 15.1 11.7 -14.4 H [facility] CenterPlatelet Gpmvq2091-69-52 00:19:00* Test Item Value Reference Range Interpretation Comments Platelet Count (test code = 777-3) 186 140-360 [facility] CenterNeutrophils (%) (Auto)2017-10-12 00:19:00 * Test Item Value Reference Range Interpretation Comments Neutrophils (%) (Auto) (test code = 20016-0) 65.3 38.7-80.0 [facility] CenterLymphocytes (%) (Auto)2017-10-12 00:19:00 * Test Item Value Reference Range Interpretation Comments Lymphocytes (%) (Auto) (test code = 736-9) 24.5 18.0-39.1 [facility] CenterMonocytes (%) (Auto)2017-10-12 00:19:00* Test Item Value Reference Range Interpretation Comments Monocytes (%) (Auto) (test code = 5905-5) 5.5 4.4-11.3 [facility] CenterEosinophils (%) (Auto)2017-10-12 00:19:00 * Test Item Value Reference Range Interpretation Comments Eosinophils (%) (Auto) (test code = 713-8) 2.7 0.0-6.0 [facility] CenterBasophils (%) (Auto)2017-10-12 00:19:00* Test Item Value Reference Range Interpretation Comments Basophils (%) (Auto) (test code = 706-2) 1.0 0.0-1.0 [facility] CenterIM GRANULOCYTES %2017-10-12 00:19:00* Test Item Value Reference Range Interpretation Comments IM GRANULOCYTES % (test code = IM GRANULOCYTES %) 1.0 0.0- 1.0 [facility] CenterNeutrophils # (Auto)2017-10-12 00:19:00* Test Item Value Reference Range Interpretation Comments Neutrophils # (Auto) (test code = 751-8) 4.1 2.1-6.9 [facility] CenterLymphocytes # (Auto)2017-10-12 00:19:00* Test Item Value Reference Range Interpretation Comments Lymphocytes # (Auto) (test code = 23654-0) 1.5 1.0-3.2 [facility] CenterMonocytes # (Auto)2017-10-12 00:19:00* Test Item Value Reference Range Interpretation Comments Monocytes # (Auto) (test code = 742-7) 0.3 0.2-0.8 [facility] CenterEosinophils # (Auto)2017-10-12 00:19:00* Test Item Value Reference Range Interpretation Comments Eosinophils # (Auto) (test code = 711-2) 0.2 0.0-0.4 [facility] CenterBasophils # (Auto)2017-10-12 00:19:00* Test Item Value Reference Range Interpretation Comments Basophils # (Auto) (test code = 704-7) 0.1 0.0-0.1 [facility] CenterAbsolute Immature Granulocyte (auto 2017-10-12 00:19:00* Test Item Value Reference Range Interpretation Comments Absolute Immature Granulocyte (auto (joseph t code = Absolute Immature Granulocyte (auto) 0.06 0-0.1 [facility] CenterUrine Tzggg8654-14-46 00:19:00* Test Item Value Reference Range Interpretation Comments Urine Color (test code = 5778-6) YELLOW YELLOW [facility] CenterUrine Tgzkmxm8919-43-51 00:19:00* Test Item Value Reference Range Interpretation Comments Urine Clarity (test code = 05793-2) CLEAR CLEAR [facility] Specific Ffypohu7177-87-36 00:19:00 * Test Item Value Reference Range Interpretation Comments Urine Specific Harmony (test code = 5811-5) 1.020 1.010-1.02 5 [facility] CenterUrine zR1024-75-51 00:19:00* Test Item Value Reference Range Interpretation Comments Urine pH (test code = 23441-2) 5 5-7 [facility] CenterUrine Leukocyte Lvakqmbw2859-42-28 00:19:00* Test Item Value Reference Range Interpretation Comments Urine Leukocyte Esterase (test code = 5799-2) NEGATIVE NEGATIVE [facility] Sovdgmk8107-94-04 00:19:00* Test Item Value Reference Range Interpretation Comments Urine Nitrite (test code = 41345-3) NEGATIVE NEGATIVE [facility] CenterUrine Sklmnxi1731-27-98 00:19:00* Test Item Value Reference Range Interpretation Comments Urine Protein (test code = 5804-0) NEGATIVE NEGATIVE [facility] CenterUrine Glucose (UA)2017-10-12 00:19:00* Test Item Value Reference Range Interpretation Comments Urine Glucose (UA) (test code = 2349-9) 3+ NEGATIVE H [facility] CenterUrine Fjsdbso2647-46-99 00:19:00* Test Item Value Reference Range Interpretation Comments Urine Ketones (test code = 02769-3) NEGATIVE NEGATIVE [facility] CenterUrine Lhjgdvbhusrt4684-01-66 00:19:00* Test Item Value Reference Range Interpretation Comments Urine Urobilinogen (test code = 33219-8) 0.2 0.2-1 [facility] CenterUrine Ulidwaynm4180-66-83 00:19:00* Test Item Value Reference Range Interpretation Comments Urine Bilirubin (test code = 1978-6) NEGATIVE NEGATIVE [facility] CenterUrine Yinlx9735-52-32 00:19:00* Test Item Value Reference Range Interpretation Comments Urine Blood (test code = 23425-8) 1+ NEGATIVE H [facility] CenterWhite Blood Zvmcd6571-67-42 00:19:00* Test Item Value Reference Range Interpretation Comments White Blood Count (test code = 6690-2) 6.20 4.8-10.8 [facility] CenterRed Blood Cinaq3936-55-97 00:19:00* Test Item Value Reference Range Interpretation Comments Red Blood Count (test code = 789-8) 4.11 3.6-5.1 [facility] CenterHemoglobin2018-03-22 00:19:00* Test Item Value Reference Range Interpretation Comments Hemoglobin (test code = 65113-7) 10.7 12.0-16.0 L [facility] CenterHematocrit2018-03-22 00:19:00* Test Item Value Reference Range Interpretation Comments Hematocrit (test code = 4544-3) 35.7 34.2-44.1 [facility] CenterMean Corpuscular Jcuapf0767-72-87 00:19:00* Test Item Value Reference Range Interpretation Comments Mean Corpuscular Volume (test code = 787-2) 86.9 81-99 [facility] CenterMean Corpuscular Wgnbsadumg3188-97-34 00:19:00* Test Item Value Reference Range Interpretation Comments Mean Corpuscular Hemoglobin (test code = 785-6) 26.0 28-32 L [facility] CenterMean Corpuscular Hemoglobin Concent 2017-10-12 00:19:00* Test Item Value Reference Range Interpretation Comments Mean Corpuscular Hemoglobin Concent (test code = 786-4) 30.0 31-35 L [facility] CenterRed Cell Distribution Snfng9187-36-57 00:19:00* Test Item Value Reference Range Interpretation Comments Red Cell Distribution Width (test code = 06214-2) 15.1 11.7 -14.4 H [facility] CenterPlatelet Ihues3160-16-84 00:19:00* Test Item Value Reference Range Interpretation Comments Platelet Count (test code = 777-3) 186 140-360 [facility] CenterNeutrophils (%) (Auto)2017-10-12 00:19:00 * Test Item Value Reference Range Interpretation Comments Neutrophils (%) (Auto) (test code = 13101-9) 65.3 38.7-80.0 [facility] CenterLymphocytes (%) (Auto)2017-10-12 00:19:00 * Test Item Value Reference Range Interpretation Comments Lymphocytes (%) (Auto) (test code = 736-9) 24.5 18.0-39.1 [facility] CenterMonocytes (%) (Auto)2017-10-12 00:19:00* Test Item Value Reference Range Interpretation Comments Monocytes (%) (Auto) (test code = 5905-5) 5.5 4.4-11.3 [facility] CenterEosinophils (%) (Auto)2017-10-12 00:19:00 * Test Item Value Reference Range Interpretation Comments Eosinophils (%) (Auto) (test code = 713-8) 2.7 0.0-6.0 [facility] CenterBasophils (%) (Auto)2017-10-12 00:19:00* Test Item Value Reference Range Interpretation Comments Basophils (%) (Auto) (test code = 706-2) 1.0 0.0-1.0 [facility] CenterIM GRANULOCYTES %2017-10-12 00:19:00* Test Item Value Reference Range Interpretation Comments IM GRANULOCYTES % (test code = IM GRANULOCYTES %) 1.0 0.0- 1.0 [facility] CenterNeutrophils # (Auto)2017-10-12 00:19:00* Test Item Value Reference Range Interpretation Comments Neutrophils # (Auto) (test code = 751-8) 4.1 2.1-6.9 [facility] CenterLymphocytes # (Auto)2017-10-12 00:19:00* Test Item Value Reference Range Interpretation Comments Lymphocytes # (Auto) (test code = 81725-2) 1.5 1.0-3.2 [facility] CenterMonocytes # (Auto)2017-10-12 00:19:00* Test Item Value Reference Range Interpretation Comments Monocytes # (Auto) (test code = 742-7) 0.3 0.2-0.8 [facility] CenterEosinophils # (Auto)2017-10-12 00:19:00* Test Item Value Reference Range Interpretation Comments Eosinophils # (Auto) (test code = 711-2) 0.2 0.0-0.4 [facility] CenterBasophils # (Auto)2017-10-12 00:19:00* Test Item Value Reference Range Interpretation Comments Basophils # (Auto) (test code = 704-7) 0.1 0.0-0.1 [facility] CenterAbsolute Immature Granulocyte (auto 2017-10-12 00:19:00* Test Item Value Reference Range Interpretation Comments Absolute Immature Granulocyte (auto (joseph t code = Absolute Immature Granulocyte (auto) 0.06 0-0.1 [facility] CenterUrine Pqyon1293-94-70 00:19:00* Test Item Value Reference Range Interpretation Comments Urine Color (test code = 5778-6) YELLOW YELLOW [facility] CenterUrine Nxvxlag4653-14-72 00:19:00* Test Item Value Reference Range Interpretation Comments Urine Clarity (test code = 36504-7) CLEAR CLEAR [facility] CenterUrine Specific Giwmeax9837-80-08 00:19:00 * Test Item Value Reference Range Interpretation Comments Urine Specific Harmony (test code = 5811-5) 1.020 1.010-1.02 5 [facility] CenterUrine fS0433-14-97 00:19:00* Test Item Value Reference Range Interpretation Comments Urine pH (test code = 26737-3) 5 5-7 [facility] CenterUrine Leukocyte Xzzssieg4943-64-67 00:19:00* Test Item Value Reference Range Interpretation Comments Urine Leukocyte Esterase (test code = 5799-2) NEGATIVE NEGATIVE [facility] CenterUrine Qpzvcnj7363-16-98 00:19:00* Test Item Value Reference Range Interpretation Comments Urine Nitrite (test code = 45631-1) NEGATIVE NEGATIVE [facility] CenterUrine Sdrabap4011-57-31 00:19:00* Test Item Value Reference Range Interpretation Comments Urine Protein (test code = 5804-0) NEGATIVE NEGATIVE [facility] CenterUrine Glucose (UA)2017-10-12 00:19:00* Test Item Value Reference Range Interpretation Comments Urine Glucose (UA) (test code = 2349-9) 3+ NEGATIVE H [facility] CenterUrine Denizbi1898-23-09 00:19:00* Test Item Value Reference Range Interpretation Comments Urine Ketones (test code = 74077-8) NEGATIVE NEGATIVE [facility] CenterUrine Zcukiiihkskw1567-69-24 00:19:00* Test Item Value Reference Range Interpretation Comments Urine Urobilinogen (test code = 03670-1) 0.2 0.2-1 [facility] CenterUrine Swrnedfix6914-71-91 00:19:00* Test Item Value Reference Range Interpretation Comments Urine Bilirubin (test code = 1978-6) NEGATIVE NEGATIVE [facility] CenterUrine Itusj5646-40-62 00:19:00* Test Item Value Reference Range Interpretation Comments Urine Blood (test code = 41561-1) 1+ NEGATIVE H [facility] CenterWhite Blood Bgupt1796-21-24 00:19:00* Test Item Value Reference Range Interpretation Comments White Blood Count (test code = 6690-2) 6.20 4.8-10.8 [facility] CenterRed Blood Esvwq6808-14-55 00:19:00* Test Item Value Reference Range Interpretation Comments Red Blood Count (test code = 789-8) 4.11 3.6-5.1 [facility] CenterHemoglobin2018-03-22 00:19:00* Test Item Value Reference Range Interpretation Comments Hemoglobin (test code = 79523-0) 10.7 12.0-16.0 L [facility] CenterHematocrit2018-03-22 00:19:00* Test Item Value Reference Range Interpretation Comments Hematocrit (test code = 4544-3) 35.7 34.2-44.1 [facility] CenterMean Corpuscular Cgrbzy4623-23-47 00:19:00* Test Item Value Reference Range Interpretation Comments Mean Corpuscular Volume (test code = 787-2) 86.9 81-99 [facility] CenterMean Corpuscular Mqrcxzpiln1974-30-73 00:19:00* Test Item Value Reference Range Interpretation Comments Mean Corpuscular Hemoglobin (test code = 785-6) 26.0 28-32 L [facility] CenterMean Corpuscular Hemoglobin Concent 2017-10-12 00:19:00* Test Item Value Reference Range Interpretation Comments Mean Corpuscular Hemoglobin Concent (test code = 786-4) 30.0 31-35 L [facility] CenterRed Cell Distribution Mblkl5507-84-27 00:19:00* Test Item Value Reference Range Interpretation Comments Red Cell Distribution Width (test code = 63188-2) 15.1 11.7 -14.4 H [facility] CenterPlatelet Tcdiw3188-88-73 00:19:00* Test Item Value Reference Range Interpretation Comments Platelet Count (test code = 777-3) 186 140-360 [facility] CenterNeutrophils (%) (Auto)2017-10-12 00:19:00 * Test Item Value Reference Range Interpretation Comments Neutrophils (%) (Auto) (test code = 50668-7) 65.3 38.7-80.0 [facility] CenterLymphocytes (%) (Auto)2017-10-12 00:19:00 * Test Item Value Reference Range Interpretation Comments Lymphocytes (%) (Auto) (test code = 736-9) 24.5 18.0-39.1 [facility] CenterMonocytes (%) (Auto)2017-10-12 00:19:00* Test Item Value Reference Range Interpretation Comments Monocytes (%) (Auto) (test code = 5905-5) 5.5 4.4-11.3 [facility] CenterEosinophils (%) (Auto)2017-10-12 00:19:00 * Test Item Value Reference Range Interpretation Comments Eosinophils (%) (Auto) (test code = 713-8) 2.7 0.0-6.0 [facility] CenterBasophils (%) (Auto)2017-10-12 00:19:00* Test Item Value Reference Range Interpretation Comments Basophils (%) (Auto) (test code = 706-2) 1.0 0.0-1.0 [facility] CenterIM GRANULOCYTES %2017-10-12 00:19:00* Test Item Value Reference Range Interpretation Comments IM GRANULOCYTES % (test code = IM GRANULOCYTES %) 1.0 0.0- 1.0 [facility] CenterNeutrophils # (Auto)2017-10-12 00:19:00* Test Item Value Reference Range Interpretation Comments Neutrophils # (Auto) (test code = 751-8) 4.1 2.1-6.9 [facility] CenterLymphocytes # (Auto)2017-10-12 00:19:00* Test Item Value Reference Range Interpretation Comments Lymphocytes # (Auto) (test code = 91005-5) 1.5 1.0-3.2 [facility] CenterMonocytes # (Auto)2017-10-12 00:19:00* Test Item Value Reference Range Interpretation Comments Monocytes # (Auto) (test code = 742-7) 0.3 0.2-0.8 [facility] CenterEosinophils # (Auto)2017-10-12 00:19:00* Test Item Value Reference Range Interpretation Comments Eosinophils # (Auto) (test code = 711-2) 0.2 0.0-0.4 [facility] CenterBasophils # (Auto)2017-10-12 00:19:00* Test Item Value Reference Range Interpretation Comments Basophils # (Auto) (test code = 704-7) 0.1 0.0-0.1 [facility] CenterAbsolute Immature Granulocyte (auto 2017-10-12 00:19:00* Test Item Value Reference Range Interpretation Comments Absolute Immature Granulocyte (auto (joseph t code = Absolute Immature Granulocyte (auto) 0.06 0-0.1 [facility] CenterUrine Emrna3135-79-98 00:19:00* Test Item Value Reference Range Interpretation Comments Urine Color (test code = 5778-6) YELLOW YELLOW [facility] CenterUrine Hikuubv8470-65-81 00:19:00* Test Item Value Reference Range Interpretation Comments Urine Clarity (test code = 43119-5) CLEAR CLEAR [facility] CenterUrine Specific Aguuvov5515-51-16 00:19:00 * Test Item Value Reference Range Interpretation Comments Urine Specific Harmony (test code = 5811-5) 1.020 1.010-1.02 5 [facility] CenterUrine gM4838-18-15 00:19:00* Test Item Value Reference Range Interpretation Comments Urine pH (test code = 36225-5) 5 5-7 [facility] CenterUrine Leukocyte Mbyzbciv4482-90-46 00:19:00* Test Item Value Reference Range Interpretation Comments Urine Leukocyte Esterase (test code = 5799-2) NEGATIVE NEGATIVE [facility] CenterUrine Dxyovem6641-59-09 00:19:00* Test Item Value Reference Range Interpretation Comments Urine Nitrite (test code = 25872-8) NEGATIVE NEGATIVE [facility] CenterUrine Pjucyvy6807-77-06 00:19:00* Test Item Value Reference Range Interpretation Comments Urine Protein (test code = 5804-0) NEGATIVE NEGATIVE [facility] CenterUrine Glucose (UA)2017-10-12 00:19:00* Test Item Value Reference Range Interpretation Comments Urine Glucose (UA) (test code = 2349-9) 3+ NEGATIVE H [facility] CenterUrine Weelqip1858-43-60 00:19:00* Test Item Value Reference Range Interpretation Comments Urine Ketones (test code = 90685-9) NEGATIVE NEGATIVE [facility] CenterUrine Qhqalhuwbukh0359-82-40 00:19:00* Test Item Value Reference Range Interpretation Comments Urine Urobilinogen (test code = 27654-1) 0.2 0.2-1 [facility] CenterUrine Oddmmzazy6156-00-16 00:19:00* Test Item Value Reference Range Interpretation Comments Urine Bilirubin (test code = 1978-6) NEGATIVE NEGATIVE [facility] CenterUrine Sonrl1195-02-74 00:19:00* Test Item Value Reference Range Interpretation Comments Urine Blood (test code = 06039-8) 1+ [facility] Rrzjnjy0985-53-95 11:00:00* Test Item Value Reference Range Interpretation Comments Blood Culture (test code = 37002272) NO GROWTH AFTER 5 DAYS, FINAL REPORT [facility] Cqwjcle8973-09-79 11:00:00* Test Item Value Reference Range Interpretation Comments Blood Culture (test code = 02902262) NO GROWTH AFTER 5 DAYS, FINAL REPORT [facility] Xfqsxgu5340-90-68 12:28:00* Test Item Value Reference Range Interpretation Comments Bedside Glucose (test code = 19631-1) 113 70-120 Meter ID: [id number] [facility] Glucose 2017-09-29 12:28:00* Test Item Value Reference Range Interpretation Comments Bedside Glucose (test code = 06411-7) 113 70-120 Meter ID: [id number] [facility] System Glucose 2017-09-29 12:28:00* Test Item Value Reference Range Interpretation Comments Bedside Glucose (test code = 48208-4) 113 70-120 Meter ID: [id number] [facility] Healthcare System Glucose 2017-09-29 12:28:00* Test Item Value Reference Range Interpretation Comments Bedside Glucose (test code = 13760-5) 113 70-120 Meter ID: [id number] [facility] Healthcare System Glucose 2017-09-29 12:28:00* Test Item Value Reference Range Interpretation Comments Bedside Glucose (test code = 14901-4) 113 70-120 Meter ID: [id number]. David's Medical Centerodium Level 2017-09-29 08:38:00* Test Item Value Reference Range Interpretation Comments Sodium Level (test code = 2951-2) 138 136-145 [facility] CenterPotassium Lwxtl6041-31-30 08:38:00* Test Item Value Reference Range Interpretation Comments Potassium Level (test code = 2823-3) 3.7 3.5-5.1 [facility] CenterChloride Ktnew2967-80-72 08:38:00* Test Item Value Reference Range Interpretation Comments Chloride Level (test code = 2075-0) 94 98-107 L [facility] CenterCarbon Dioxide Cgtuu7265-34-46 08:38:00* Test Item Value Reference Range Interpretation Comments Carbon Dioxide Level (test code = 2028-9) 29 22-29 [facility] CenterAnion Bqo0417-28-16 08:38:00* Test Item Value Reference Range Interpretation Comments Anion Gap (test code = 01254-7) 18.7 8-16 H [facility] CenterBlood Urea Cjquuxuz4989-17-21 08:38:00* Test Item Value Reference Range Interpretation Comments Blood Urea Nitrogen (test code = 3094-0) 25 7-26 [facility] CenterCreatinine2018 08:38:00* Test Item Value Reference Range Interpretation Comments Creatinine (test code = 2160-0) 1.00 0.57-1.11 [facility] CenterBUN/Creatinine Zqopd4647-32-90 08:38:00* Test Item Value Reference Range Interpretation Comments BUN/Creatinine Ratio (test code = 3097-3) 25 6-25 [facility] CenterEstimat Glomerular Filtration Rate 2017-09-29 08:38:00* Test Item Value Reference Range Interpretation Comments Estimat Glomerular Filtration Rate (test code = 70796-1) 56 >60 L Ranges were taken from the National Kidney Disease Education Program and the [facility]nhrmcal [employer] literature.Reference ranges:60 or greater: Lnpfxd14-62 ( for 3 consecutive months): Chronic kidney disease 15 or less: Kidney failureMission Regional Medical CenterGlucose Mlhix5241-76-77 08:38:00* Test Item Value Reference Range Interpretation Comments Glucose Level (test code = VNO0859) 290 74-118 H [facility] CenterCalcium Sohht7537-18-08 08:38:00* Test Item Value Reference Range Interpretation Comments Calcium Level (test code = 40483-5) 9.4 8.4-10.2 [facility] Centerodium Aaojc9092-38-15 08:38:00* Test Item Value Reference Range Interpretation Comments Sodium Level (test code = 2951-2) 138 136-145 [facility] CenterPotassium Veuqq5235-00-12 08:38:00* Test Item Value Reference Range Interpretation Comments Potassium Level (test code = 2823-3) 3.7 3.5-5.1 [facility] CenterChloride Icamj1530-07-01 08:38:00* Test Item Value Reference Range Interpretation Comments Chloride Level (test code = 2075-0) 94 98-107 L [facility] CenterCarbon Dioxide Velns5809-07-61 08:38:00* Test Item Value Reference Range Interpretation Comments Carbon Dioxide Level (test code = 2028-9) 29 22-29 [facility] CenterAnion Kou6757-35-82 08:38:00* Test Item Value Reference Range Interpretation Comments Anion Gap (test code = 01003-9) 18.7 8-16 H [facility] CenterBlood Urea Dxzjujsa9719-24-79 08:38:00* Test Item Value Reference Range Interpretation Comments Blood Urea Nitrogen (test code = 3094-0) 25 7-26 [facility] CenterCreatinine2018 08:38:00* Test Item Value Reference Range Interpretation Comments Creatinine (test code = 2160-0) 1.00 0.57-1.11 [facility] [facility] CenterB[facility]/Creatinine [id number] 08:38:00* Test Item Value Reference Range Interpretation Comments BUN/Creatinine Ratio (test code = 3097-3) 25 6-25 [facility] CenterEstimat Glomerular Filtration Rate 2017-09-29 08:38:00* Test Item Value Reference Range Interpretation Comments Estimat Glomerular Filtration Rate (test code = 68344-5) 56 >60 L Ranges were taken from the National Kidney Disease Education Program and the [facility]rm[facility] [employer] literature.Reference ranges:60 or greater: Ojeldi80-70 ( for 3 consecutive months): Chronic kidney disease 15 or less: Kidney failureM[facility] Medical CenterGlucose Mvtxq5605-50-30 08:38:00* Test Item Value Reference Range Interpretation Comments Glucose Level (test code = OZP5978) 290 74-118 H [facility] CenterCalcium Cfwrh4281-75-93 08:38:00* Test Item Value Reference Range Interpretation Comments Calcium Level (test code = 71920-4) 9.4 8.4-10.2 [facility] CenterArterial Blood [id number] 13:49:00* Test Item Value Reference Range Interpretation Comments Arterial Blood pH (test code = 2744-1) 7.46 7.31-7.41 H WAS CALLED TO RUN A BLOOD GAS FOR A PT ON ROOM AIR LAYING ON THE CIGAR PACKER AND PICKER TABLE [facility] CenterArterial Blood Partial Pressure CO2 2017-09-28 13:49:00* Test Item Value Reference Range Interpretation Comments Arterial Blood Partial Pressure CO2 (test code = 2019-02) 46 41-51 [facility] CenterArterial Blood Partial Pressure O2 2017-09-28 13:49:00* Test Item Value Reference Range Interpretation Comments Arterial Blood Partial Pressure O2 (test code = 2019-02) 30 80-105 LL Results called/hand delivered to DR CLINTON LLAMAS at 1328 on 09/28/17 by Mckayla reyna. [place].[facility] CenterArterial Blood HCO3 2017-09-28 13:49:00* Test Item Value Reference Range Interpretation Comments Arterial Blood HCO3 (test code = 1960-4) 33 23-28 H [facility] CenterArterial Blood Base [id number] 13:49:00* Test Item Value Reference Range Interpretation Comments Arterial Blood Base Excess (test code = 1925-7) 9.0 -2-3 H [facility] CenterArterial Blood Oxygen Saturation 2017-09-28 13:49:00* Test Item Value Reference Range Interpretation Comments Arterial Blood Oxygen Saturation (test code = 2708-6) 60.0 95-98 L [facility] Blood [id number] 13:49:00* Test Item Value Reference Range Interpretation Comments Arterial Blood pH (test code = 2744-1) 7.46 7.31-7.41 H WAS CALLED TO RUN A BLOOD GAS FOR A PT ON ROOM AIR LAYING ON THE CIGAR PACKER AND PICKER TABLE [facility] CenterArterial Blood Partial Pressure CO2 2017-09-28 13:49:00* Test Item Value Reference Range Interpretation Comments Arterial Blood Partial Pressure CO2 (test code = 2019-02) 46 41-51 [facility] CenterArterial Blood Partial Pressure O2 2017-09-28 13:49:00* Test Item Value Reference Range Interpretation Comments Arterial Blood Partial Pressure O2 (test code = 2019-02) 30 80-105 LL Results called/hand delivered to DR CLINTON LLAMAS at 1328 on 09/28/17 by Mckayla reyna. [place].[facility] CenterArterial Blood HCO3 2017-09-28 13:49:00* Test Item Value Reference Range Interpretation Comments Arterial Blood HCO3 (test code = 1960-4) 33 23-28 [facility] [id number] 13:49:00* Test Item Value Reference Range Interpretation Comments Arterial Blood Base Excess (test code = 1925-7) 9.0 -2-3 H [facility] CenterArterial Blood Oxygen Saturation 2017-09-28 13:49:00* Test Item Value Reference Range Interpretation Comments Arterial Blood Oxygen Saturation (test code = 2708-6) 60.0 95-98 L [facility] Blood [id number] 13:49:00* Test Item Value Reference Range Interpretation Comments Arterial Blood pH (test code = 2744-1) 7.46 7.31-7.41 H WAS CALLED TO RUN A BLOOD GAS FOR A PT ON ROOM AIR LAYING ON THE CIGAR PACKER AND PICKER TABLE [facility] CenterArterial Blood Partial Pressure CO2 2017-09-28 13:49:00* Test Item Value Reference Range Interpretation Comments Arterial Blood Partial Pressure CO2 (test code = 2018-8) 46 41-51 [facility] CenterArterial Blood Partial Pressure O2 2017-09-28 13:49:00* Test Item Value Reference Range Interpretation Comments Arterial Blood Partial Pressure O2 (test code = 2018-8) 30 80-105 LL Results called/hand delivered to DR CLINTON LLAMAS at 1328 on 09/28/17 by Mckayla reyna. [place].[facility] CenterArterial Blood HCO3 2017-09-28 13:49:00* Test Item Value Reference Range Interpretation Comments Arterial Blood HCO3 (test code = 1960-4) 33 23-28 H [facility] CenterArterial Blood Base [id number] 13:49:00* Test Item Value Reference Range Interpretation Comments Arterial Blood Base Excess (test code = 1925-7) 9.0 -2-3 H [facility] CenterArterial Blood Oxygen Saturation 2017-09-28 13:49:00* Test Item Value Reference Range Interpretation Comments Arterial Blood Oxygen Saturation (test code = 2708-6) 60.0 95-98 L [facility]Ar[facility] [id number] 13:49:00* Test Item Value Reference Range Interpretation Comments Arterial Blood pH (test code = 2744-1) 7.46 7.31-7.41 H WAS CALLED TO RUN A BLOOD GAS FOR A PT ON ROOM AIR LAYING ON THE CIGAR PACKER AND PICKER TABLE [facility] CenterArterial Blood Partial Pressure CO2 2017-09-28 13:49:00* Test Item Value Reference Range Interpretation Comments Arterial Blood Partial Pressure CO2 (test code = 2018-8) 46 41-51 [facility] CenterArterial Blood Partial Pressure O2 2017-09-28 13:49:00* Test Item Value Reference Range Interpretation Comments Arterial Blood Partial Pressure O2 (test code = 2018-8) 30 80-105 LL Results called/hand delivered to DR CLINTON LLAMAS at 1328 on 09/28/17 by Mckayla reyna. [place].[facility] CenterArterial Blood HCO3 2017-09-28 13:49:00* Test Item Value Reference Range Interpretation Comments Arterial Blood HCO3 (test code = 1960-4) 33 23-28 H [facility] CenterArterial Blood Base [id number] 13:49:00* Test Item Value Reference Range Interpretation Comments Arterial Blood Base Excess (test code = 1925-7) 9.0 -2-3 H [facility] CenterArterial Blood Oxygen Saturation 2017-09-28 13:49:00* Test Item Value Reference Range Interpretation Comments Arterial Blood Oxygen Saturation (test code = 2708-6) 60.0 95-98 L [facility] CenterAr[facility] Blood [id number] 13:49:00* Test Item Value Reference Range Interpretation Comments Arterial Blood pH (test code = 2744-1) 7.46 7.31-7.41 H WAS CALLED TO RUN A BLOOD GAS FOR A PT ON ROOM AIR LAYING ON THE CIGAR PACKER AND PICKER TABLE [facility] CenterArterial Blood Partial Pressure CO2 2017-09-28 13:49:00* Test Item Value Reference Range Interpretation Comments Arterial Blood Partial Pressure CO2 (test code = 2018-8) 46 41-51 [facility] CenterArterial Blood Partial Pressure O2 2017-09-28 13:49:00* Test Item Value Reference Range Interpretation Comments Arterial Blood Partial Pressure O2 (test code = 2018-8) 30 80-105 LL Results called/hand delivered to DR CLINTON LLAMAS at 1328 on 09/28/17 by Mckayla reyna. [place].[facility] CenterArterial Blood HCO3 2017-09-28 13:49:00* Test Item Value Reference Range Interpretation Comments Arterial Blood HCO3 (test code = 1960-4) 33 23-28 H [facility] CenterArterial Blood Base [id number] 13:49:00* Test Item Value Reference Range Interpretation Comments Arterial Blood Base Excess (test code = 1925-7) 9.0 -2-3 H [facility] CenterArterial Blood Oxygen Saturation 2017-09-28 13:49:00* Test Item Value Reference Range Interpretation Comments Arterial Blood Oxygen Saturation (test code = 2708-6) 60.0 95-98 L [facility] Blood [id number] 13:49:00* Test Item Value Reference Range Interpretation Comments Arterial Blood pH (test code = 2744-1) 7.46 7.31-7.41 H WAS CALLED TO RUN A BLOOD GAS FOR A PT ON ROOM AIR LAYING ON THE CIGAR PACKER AND PICKER TABLE [facility] CenterArterial Blood Partial Pressure CO2 2017-09-28 13:49:00* Test Item Value Reference Range Interpretation Comments Arterial Blood Partial Pressure CO2 (test code = 2019-02) 46 41-51 [facility] CenterArterial Blood Partial Pressure O2 2017-09-28 13:49:00* Test Item Value Reference Range Interpretation Comments Arterial Blood Partial Pressure O2 (test code = 2019-02) 30 80-105 LL Results called/hand delivered to DR CLINTON LLAMAS at 1328 on 09/28/17 by Mckayla reyna. [place].[facility] CenterArterial Blood HCO3 2017-09-28 13:49:00* Test Item Value Reference Range Interpretation Comments Arterial Blood HCO3 (test code = 1960-4) 33 23-28 H [facility] CenterArterial Blood Base [id number] 13:49:00* Test Item Value Reference Range Interpretation Comments Arterial Blood Base Excess (test code = 1925-7) 9.0 -2-3 H [facility] CenterArterial Blood Oxygen Saturation 2017-09-28 13:49:00* Test Item Value Reference Range Interpretation Comments Arterial Blood Oxygen Saturation (test code = 2708-6) 60.0 95-98 L [facility]Ar[facility] Blood [id number] 13:49:00* Test Item Value Reference Range Interpretation Comments Arterial Blood pH (test code = 2744-1) 7.46 7.31-7.41 H WAS CALLED TO RUN A BLOOD GAS FOR A PT ON ROOM AIR LAYING ON THE CIGAR PACKER AND PICKER TABLE [facility] CenterArterial Blood Partial Pressure CO2 2017-09-28 13:49:00* Test Item Value Reference Range Interpretation Comments Arterial Blood Partial Pressure CO2 (test code = 2019-02) 46 41-51 [facility] CenterArterial Blood Partial Pressure O2 2017-09-28 13:49:00* Test Item Value Reference Range Interpretation Comments Arterial Blood Partial Pressure O2 (test code = 2019-02) 30 80-105 LL Results called/hand delivered to DR CLINTON LLAMAS at 1328 on 09/28/17 by Mckayla reyna. [place].[facility] CenterArterial Blood HCO3 2017-09-28 13:49:00* Test Item Value Reference Range Interpretation Comments Arterial Blood HCO3 (test code = 1960-4) 33 23-28 H [facility] CenterArterial Blood Base [id number] 13:49:00* Test Item Value Reference Range Interpretation Comments Arterial Blood Base Excess (test code = 1925-7) 9.0 -2-3 H [facility] CenterArterial Blood Oxygen Saturation 2017-09-28 13:49:00* Test Item Value Reference Range Interpretation Comments Arterial Blood Oxygen Saturation (test code = 2708-6) 60.0 95-98 L [facility] Blood [id number] 13:49:00* Test Item Value Reference Range Interpretation Comments Arterial Blood pH (test code = 2744-1) 7.46 7.31-7.41 H WAS CALLED TO RUN A BLOOD GAS FOR A PT ON ROOM AIR LAYING ON THE CIGAR PACKER AND PICKER TABLE [facility] CenterArterial Blood Partial Pressure CO2 2017-09-28 13:49:00* Test Item Value Reference Range Interpretation Comments Arterial Blood Partial Pressure CO2 (test code = 2019-8) 46 41-51 [facility] CenterArterial Blood Partial Pressure O2 2017-09-28 13:49:00* Test Item Value Reference Range Interpretation Comments Arterial Blood Partial Pressure O2 (test code = 2019-8) 30 80-105 LL Results called/hand delivered to DR CLINTON LLAMAS at 1328 on 09/28/17 by Mckayla reyna. [place].[facility] CenterArterial Blood HCO3 2017-09-28 13:49:00* Test Item Value Reference Range Interpretation Comments Arterial Blood HCO3 (test code = 1960-4) 33 23-28 H [facility] CenterArterial Blood Base [id number] 13:49:00* Test Item Value Reference Range Interpretation Comments Arterial Blood Base Excess (test code = 1925-7) 9.0 -2-3 H [facility] CenterAr[facility]ial Blood Oxygen Saturation 2017-09-28 13:49:00* Test Item Value Reference Range Interpretation Comments Arterial Blood Oxygen Saturation (test code = 2708-6) 60.0 95-98 L [facility]Ar[facility] Blood [id number] 13:49:00* Test Item Value Reference Range Interpretation Comments Arterial Blood pH (test code = 2744-1) 7.46 7.31-7.41 H WAS CALLED TO RUN A BLOOD GAS FOR A PT ON ROOM AIR LAYING ON THE CIGAR PACKER AND PICKER TABLE [facility] CenterArterial Blood Partial Pressure CO2 2017-09-28 13:49:00* Test Item Value Reference Range Interpretation Comments Arterial Blood Partial Pressure CO2 (test code = 2019-02) 46 41-51 [facility] CenterAr[facility]ial Blood Partial Pressure O2 2017-09-28 13:49:00* Test Item Value Reference Range Interpretation Comments Arterial Blood Partial Pressure O2 (test code = 2019-02) 30 80-105 LL Results called/hand delivered to DR CLINTON LLAMAS at 1328 on 09/28/17 by Mckayla reyna. [place].[facility] CenterArterial Blood HCO3 2017-09-28 13:49:00* Test Item Value Reference Range Interpretation Comments Arterial Blood HCO3 (test code = 1960-4) 33 23-28 H [facility] CenterArterial Blood Base [id number] 13:49:00* Test Item Value Reference Range Interpretation Comments Arterial Blood Base Excess (test code = 1925-7) 9.0 -2-3 H [facility] CenterArterial Blood Oxygen Saturation 2017-09-28 13:49:00* Test Item Value Reference Range Interpretation Comments Arterial Blood Oxygen Saturation (test code = 2708-6) 60.0 95-98 L [facility] Blood [id number] 13:49:00* Test Item Value Reference Range Interpretation Comments Arterial Blood pH (test code = 2744-1) 7.46 7.31-7.41 H WAS CALLED TO RUN A BLOOD GAS FOR A PT ON ROOM AIR LAYING ON THE CIGAR PACKER AND PICKER TABLE [facility] CenterArterial Blood Partial Pressure CO2 2017-09-28 13:49:00* Test Item Value Reference Range Interpretation Comments Arterial Blood Partial Pressure CO2 (test code = 2018-8) 46 41-51 [facility] CenterArterial Blood Partial Pressure O2 2017-09-28 13:49:00* Test Item Value Reference Range Interpretation Comments Arterial Blood Partial Pressure O2 (test code = 2018-8) 30 80-105 LL Results called/hand delivered to DR CLINTON LLAMAS at 1328 on 09/28/17 by Mckayla reyna. [place].[facility] CenterArterial Blood HCO3 2017-09-28 13:49:00* Test Item Value Reference Range Interpretation Comments Arterial Blood HCO3 (test code = 1960-4) 33 23-28 H [facility] Blood Base [id number] 13:49:00* Test Item Value Reference Range Interpretation Comments Arterial Blood Base Excess (test code = 1925-7) 9.0 -2-3 H [facility] CenterAr[facility]ial Blood Oxygen Saturation 2017-09-28 13:49:00* Test Item Value Reference Range Interpretation Comments Arterial Blood Oxygen Saturation (test code = 2708-6) 60.0 95-98 L [facility]Ar[facility] Blood [id number] 13:49:00* Test Item Value Reference Range Interpretation Comments Arterial Blood pH (test code = 2744-1) 7.46 7.31-7.41 H WAS CALLED TO RUN A BLOOD GAS FOR A PT ON ROOM AIR LAYING ON THE CIGAR PACKER AND PICKER TABLE [facility] CenterArterial Blood Partial Pressure CO2 2017-09-28 13:49:00* Test Item Value Reference Range Interpretation Comments Arterial Blood Partial Pressure CO2 (test code = 2018-8) 46 41-51 [facility] CenterArterial Blood Partial Pressure O2 2017-09-28 13:49:00* Test Item Value Reference Range Interpretation Comments Arterial Blood Partial Pressure O2 (test code = 2018-8) 30 80-105 LL Results called/hand delivered to DR CLINTON LLAMAS at 1328 on 09/28/17 by Mckayla reyna. [place].[facility] CenterArterial Blood HCO3 2017-09-28 13:49:00* Test Item Value Reference Range Interpretation Comments Arterial Blood HCO3 (test code = 1960-4) 33 23-28 H [facility] CenterAr[facility]ial Blood Base [id number] 13:49:00* Test Item Value Reference Range Interpretation Comments Arterial Blood Base Excess (test code = 1925-7) 9.0 -2-3 H [facility] CenterArterial Blood Oxygen Saturation 2017-09-28 13:49:00* Test Item Value Reference Range Interpretation Comments Arterial Blood Oxygen Saturation (test code = 2708-6) 60.0 95-98 L [facility] CenterBlood [id number] 11:00:00* Test Item Value Reference Range Interpretation Comments Blood Culture (test code = 83669681) NO GROWTH AFTER 72 HOURS [facility] CenterCreatine Kinase [id number] 07:21:00* Test Item Value Reference Range Interpretation Comments Creatine Kinase MB (test code = 23444-5) 1.40 0-5.0 [facility] CenterTroponin [id number] 07:21:00* Test Item Value Reference Range Interpretation Comments Troponin I (test code = CQZ2814) -0.001 0-0.300 [facility] CenterCreatine Kinase [id number] 07:21:00* Test Item Value Reference Range Interpretation Comments Creatine Kinase MB (test code = 61790-4) 1.40 0-5.0 [facility] CenterTrChristopher [place] [id number] 07:21:00* Test Item Value Reference Range Interpretation Comments Troponin I (test code = DIE7513) -0.001 0-0.300 [facility] CenterCreatine Ozfsgm5974-08-03 07:19:00* Test Item Value Reference Range Interpretation Comments Creatine Kinase (test code = 2157-6) 67 168 [facility] CenterCreatine [id number] 07:19:00* Test Item Value Reference Range Interpretation Comments Creatine Kinase (test code = 2157-6) 67 29-168 [facility] CenterWhite Blood [id number] 07:00:00* Test Item Value Reference Range Interpretation Comments White Blood Count (test code = 6690-2) 8.36 4.8-10.8 [facility] CenterRed Blood Lyiyu3602-96-01 07:00:00* Test Item Value Reference Range Interpretation Comments Red Blood Count (test code = 789-8) 4.13 3.6-5.1 [facility] CenterHemoglobin2018-03-06 07:00:00* Test Item Value Reference Range Interpretation Comments Hemoglobin (test code = 22092-8) 10.9 12.0-16.0 L [facility] CenterHematocrit2018-03-06 07:00:00* Test Item Value Reference Range Interpretation Comments Hematocrit (test code = 4544-3) 35.0 34.2-44.1 [facility] CenterMean Corpuscular [id number] 07:00:00* Test Item Value Reference Range Interpretation Comments Mean Corpuscular Volume (test code = 787-2) 84.7 81-99 [facility] CenterMean Corpuscular Aqgunewsqo8984-24-28 07:00:00* Test Item Value Reference Range Interpretation Comments Mean Corpuscular Hemoglobin (test code = 785-6) 26.4 28-32 L [facility] CenterMean Corpuscular Hemoglobin Concent 2017-09-26 07:00:00* Test Item Value Reference Range Interpretation Comments Mean Corpuscular Hemoglobin Concent (test code = 786-4) 31.1 31-35 [facility] CenterRed Cell Distribution [id number] 07:00:00* Test Item Value Reference Range Interpretation Comments Red Cell Distribution Width (test code = 70224-1) 15.1 11.7 -14.4 H [facility] CenterPlatelet [id number] 07:00:00* Test Item Value Reference Range Interpretation Comments Platelet Count (test code = 777-3) 223 140-360 [facility] CenterNeutrophils (%) (Auto)2017-09-26 07:00:00 * Test Item Value Reference Range Interpretation Comments Neutrophils (%) (Auto) (test code = 41676-7) 80.9 38.7-80.0 H [facility] CenterLymphocytes (%) (Auto)2017-09-26 07:00:00 * Test Item Value Reference Range Interpretation Comments Lymphocytes (%) (Auto) (test code = 736-9) 12.3 18.0-39.1 L [facility] CenterMonocytes (%) (Auto)2017-09-26 07:00:00* Test Item Value Reference Range Interpretation Comments Monocytes (%) (Auto) (test code = 5905-5) 5.1 4.4-11.3 [facility] CenterEosinophils (%) (Auto)2017-09-26 07:00:00 * Test Item Value Reference Range Interpretation Comments Eosinophils (%) (Auto) (test code = 713-8) 0.0 0.0-6.0 [facility] CenterBasophils (%) (Auto)2017-09-26 07:00:00* Test Item Value Reference Range Interpretation Comments Basophils (%) (Auto) (test code = 706-2) 0.4 0.0-1.0 [facility] CenterIM GRANULOCYTES %2017-09-26 07:00:00* Test Item Value Reference Range Interpretation Comments IM GRANULOCYTES % (test code = IM GRANULOCYTES %) 1.3 0.0- 1.0 H [facility] CenterNeutrophils # (Auto)2017-09-26 07:00:00* Test Item Value Reference Range Interpretation Comments Neutrophils # (Auto) (test code = 751-8) 6.8 2.1-6.9 [facility] CenterLymphocytes # (Auto)2017-09-26 07:00:00* Test Item Value Reference Range Interpretation Comments Lymphocytes # (Auto) (test code = 45579-0) 1.0 1.0-3.2 [facility] CenterMonocytes # (Auto)2017-09-26 07:00:00* Test Item Value Reference Range Interpretation Comments Monocytes # (Auto) (test code = 742-7) 0.4 0.2-0.8 [facility] CenterEosinophils # (Auto)2017-09-26 07:00:00* Test Item Value Reference Range Interpretation Comments Eosinophils # (Auto) (test code = 711-2) 0.0 0.0-0.4 [facility] CenterBasophils # (Auto)2017-09-26 07:00:00* Test Item Value Reference Range Interpretation Comments Basophils # (Auto) (test code = 704-7) 0.0 0.0-0.1 [facility] CenterAbsolute Immature Granulocyte (auto 2017-09-26 07:00:00* Test Item Value Reference Range Interpretation Comments Absolute Immature Granulocyte (auto (joseph t code = Absolute Immature Granulocyte (auto) 0.11 0-0.1 H [facility] CenterWhite Blood [id number] 07:00:00* Test Item Value Reference Range Interpretation Comments White Blood Count (test code = 6690-2) 8.36 4.8-10.8 [facility] CenterRed Blood [id number] 07:00:00* Test Item Value Reference Range Interpretation Comments Red Blood Count (test code = 789-8) 4.13 3.6-5.1 [facility] CenterHemoglobin2018-03-06 07:00:00* Test Item Value Reference Range Interpretation Comments Hemoglobin (test code = 97828-3) 10.9 12.0-16.0 L [facility] CenterHematocrit2018-03-06 07:00:00* Test Item Value Reference Range Interpretation Comments Hematocrit (test code = 4544-3) 35.0 34.2-44.1 [facility] CenterMean Corpuscular Ibtgtl3713-14-07 07:00:00* Test Item Value Reference Range Interpretation Comments Mean Corpuscular Volume (test code = 787-2) 84.7 81-99 [facility] CenterMean Corpuscular Bjhehzbivx4905-81-77 07:00:00* Test Item Value Reference Range Interpretation Comments Mean Corpuscular Hemoglobin (test code = 785-6) 26.4 28-32 L [facility] CenterMean Corpuscular Hemoglobin Concent 2017-09-26 07:00:00* Test Item Value Reference Range Interpretation Comments Mean Corpuscular Hemoglobin Concent (test code = 786-4) 31.1 31-35 [facility] CenterRed Cell Distribution Dmzev3945-86-84 07:00:00* Test Item Value Reference Range Interpretation Comments Red Cell Distribution Width (test code = 61143-6) 15.1 11.7 -14.4 H [facility] CenterPlatelet Xczms3918-48-63 07:00:00* Test Item Value Reference Range Interpretation Comments Platelet Count (test code = 777-3) 223 140-360 [facility] CenterNeutrophils (%) (Auto)2017-09-26 07:00:00 * Test Item Value Reference Range Interpretation Comments Neutrophils (%) (Auto) (test code = 70346-2) 80.9 38.7-80.0 H [facility] CenterLymphocytes (%) (Auto)2017-09-26 07:00:00 * Test Item Value Reference Range Interpretation Comments Lymphocytes (%) (Auto) (test code = 736-9) 12.3 18.0-39.1 L [facility] CenterMonocytes (%) (Auto)2017-09-26 07:00:00* Test Item Value Reference Range Interpretation Comments Monocytes (%) (Auto) (test code = 5905-5) 5.1 4.4-11.3 [facility] CenterEosinophils (%) (Auto)2017-09-26 07:00:00 * Test Item Value Reference Range Interpretation Comments Eosinophils (%) (Auto) (test code = 713-8) 0.0 0.0-6.0 [facility] CenterBasophils (%) (Auto)2017-09-26 07:00:00* Test Item Value Reference Range Interpretation Comments Basophils (%) (Auto) (test code = 706-2) 0.4 0.0-1.0 [facility] CenterIM GRANULOCYTES %2017-09-26 07:00:00* Test Item Value Reference Range Interpretation Comments IM GRANULOCYTES % (test code = IM GRANULOCYTES %) 1.3 0.0- 1.0 [facility] CenterNeutrophils # (Auto)2017-09-26 07:00:00* Test Item Value Reference Range Interpretation Comments Neutrophils # (Auto) (test code = 751-8) 6.8 2.1-6.9 [facility] CenterLymphocytes # (Auto)2017-09-26 07:00:00* Test Item Value Reference Range Interpretation Comments Lymphocytes # (Auto) (test code = 38751-8) 1.0 1.0-3.2 [facility] CenterMonocytes # (Auto)2017-09-26 07:00:00* Test Item Value Reference Range Interpretation Comments Monocytes # (Auto) (test code = 742-7) 0.4 0.2-0.8 [facility] CenterEosinophils # (Auto)2017-09-26 07:00:00* Test Item Value Reference Range Interpretation Comments Eosinophils # (Auto) (test code = 711-2) 0.0 0.0-0.4 [facility] CenterBasophils # (Auto)2017-09-26 07:00:00* Test Item Value Reference Range Interpretation Comments Basophils # (Auto) (test code = 704-7) 0.0 0.0-0.1 [facility] CenterAbsolute Immature Granulocyte (auto 2017-09-26 07:00:00* Test Item Value Reference Range Interpretation Comments Absolute Immature Granulocyte (auto (joseph t code = Absolute Immature Granulocyte (auto) 0.11 0-0.1 H [facility] CenterProthrombin Hhky6775-80-71 11:58:00* Test Item Value Reference Range Interpretation Comments Prothrombin Time (test code = 5902-2) 13.2 11.9-14.5 [facility] CenterProthromb Time International Ratio 2017-09-25 11:58:00* Test Item Value Reference Range Interpretation Comments Prothromb Time International Ratio (test code = 6301-6) 1.08 Oral Anticoagulant Therapy INR Values:1. Low Intensity Therapy 1.5 - 2.02 . Moderate Intensity Therapy 2.0 - 3.03. High Intensity Therapy(1) 2.5 - 3. 54. High Intensity Therapy(2) 3.0 - 4.05. Panic Value INR > 5.0 [facility] CenterActivated Partial Thromboplast Time 2017-09-25 11:58:00* Test Item Value Reference Range Interpretation Comments Activated Partial Thromboplast Time (test code = 23672-5) 23.7 23.8-35.5 L [facility] CenterB-Type Natriuretic Gyvwovh6872-46-01 11:58:00* Test Item Value Reference Range Interpretation Comments B-Type Natriuretic Peptide (test code = 03775-4) 77.1 0-100 [facility] CenterProthrombin Jctp5736-97-42 11:58:00* Test Item Value Reference Range Interpretation Comments Prothrombin Time (test code = 5902-2) 13.2 11.9-14.5 [facility] CenterProthromb Time International Ratio 2017-09-25 11:58:00* Test Item Value Reference Range Interpretation Comments Prothromb Time International Ratio (test code = 6301-6) 1.08 Oral Anticoagulant Therapy INR Values:1. Low Intensity Therapy 1.5 - 2.02 . Moderate Intensity Therapy 2.0 - 3.03. High Intensity Therapy(1) 2.5 - 3. 54. High Intensity Therapy(2) 3.0 - 4.05. Panic Value INR > 5.0 [facility] CenterActivated Partial Thromboplast Time 2017-09-25 11:58:00* Test Item Value Reference Range Interpretation Comments Activated Partial Thromboplast Time (test code = 41213-0) 23.7 23.8-35.5 L [facility] CenterB-Type Natriuretic Ygxrqdx2210-28-37 11:58:00* Test Item Value Reference Range Interpretation Comments B-Type Natriuretic Peptide (test code = 50454-4) 77.1 0-100 [facility] CenterInfluenza Virus Types A,B Antigen 2017-09-25 11:57:00* Test Item Value Reference Range Interpretation Comments Influenza Virus Types A,B Antigen (test code = 88147-4) NEGATIVE NEGATIVE [facility] CenterInfluenza Virus Types A,B Antigen 2017-09-25 11:57:00* Test Item Value Reference Range Interpretation Comments Influenza Virus Types A,B Antigen (test code = 22018-4) NEGATIVE NEGATIVE [facility] CenterInfluenza Virus Types A,B Antigen 2017-09-25 11:57:00* Test Item Value Reference Range Interpretation Comments Influenza Virus Types A,B Antigen (test code = 23383-0) NEGATIVE NEGATIVE [facility] CenterInfluenza Virus Types A,B Antigen 2017-09-25 11:57:00* Test Item Value Reference Range Interpretation Comments Influenza Virus Types A,B Antigen (test code = 37960-2) NEGATIVE NEGATIVE [facility] CenterInfluenza Virus Types A,B Antigen 2017-09-25 11:57:00* Test Item Value Reference Range Interpretation Comments Influenza Virus Types A,B Antigen (test code = 38109-5) NEGATIVE NEGATIVE [facility] CenterInfluenza Virus Types A,B Antigen 2017-09-25 11:57:00* Test Item Value Reference Range Interpretation Comments Influenza Virus Types A,B Antigen (test code = 77901-0) NEGATIVE NEGATIVE [facility] CenterInfluenza Virus Types A,B Antigen 2017-09-25 11:57:00* Test Item Value Reference Range Interpretation Comments Influenza Virus Types A,B Antigen (test code = 20864-8) NEGATIVE NEGATIVE [facility] CenterInfluenza Virus Types A,B Antigen 2017-09-25 11:57:00* Test Item Value Reference Range Interpretation Comments Influenza Virus Types A,B Antigen (test code = 66685-6) NEGATIVE NEGATIVE [facility] CenterInfluenza Virus Types A,B Antigen 2017-09-25 11:57:00* Test Item Value Reference Range Interpretation Comments Influenza Virus Types A,B Antigen (test code = 75760-9) NEGATIVE NEGATIVE [facility] CenterInfluenza Virus Types A,B Antigen 2017-09-25 11:57:00* Test Item Value Reference Range Interpretation Comments Influenza Virus Types A,B Antigen (test code = 23678-3) NEGATIVE NEGATIVE [facility]In[facility] Virus Types A,B Antigen 2017-09-25 11:57:00* Test Item Value Reference Range Interpretation Comments Influenza Virus Types A,B Antigen (test code = 55692-5) NEGATIVE NEGATIVE [facility] PNI2160-64-78 11:55:00* Test Item Value Reference Range Interpretation Comments Urine WBC (test code = 5821-4) NONE 0-5 [facility] CenterUrine VIL6828-53-54 11:55:00* Test Item Value Reference Range Interpretation Comments Urine RBC (test code = 24140-4) NONE 0-5 [facility] CenterUrine Tyrgwuon5328-90-09 11:55:00* Test Item Value Reference Range Interpretation Comments Urine Bacteria (test code = 38188-9) NONE NONE [facility] CenterUrine Epithelial Hncrz0788-96-48 11:55:00 * Test Item Value Reference Range Interpretation Comments Urine Epithelial Cells (test code = 51476-5) RARE NONE [facility] CenterUrine WBT8877-22-93 11:55:00* Test Item Value Reference Range Interpretation Comments Urine WBC (test code = 5821-4) NONE 0-5 [facility] CenterU[facility] IOZ3028-53-08 11:55:00* Test Item Value Reference Range Interpretation Comments Urine RBC (test code = 51423-5) NONE 0-5 [facility] CenterUrine Egabhrdv1906-78-50 11:55:00* Test Item Value Reference Range Interpretation Comments Urine Bacteria (test code = 33517-1) NONE NONE [facility] CenterUrine Epithelial Vtyek7479-59-59 11:55:00 * Test Item Value Reference Range Interpretation Comments Urine Epithelial Cells (test code = 74921-4) RARE NONE [facility] CenterThyroid Stimulating Hormone (TSH) 2017-09-25 11:50:00* Test Item Value Reference Range Interpretation Comments Thyroid Stimulating Hormone (TSH) (test code = 13939-3) 0.515 0.350-4.940 [facility] CenterThyroid Stimulating Hormone (TSH) 2017-09-25 11:50:00* Test Item Value Reference Range Interpretation Comments Thyroid Stimulating Hormone (TSH) (test code = 86684-3) 0.515 0.350-4.940 [facility] CenterThyroid Stimulating Hormone (TSH) 2017-09-25 11:50:00* Test Item Value Reference Range Interpretation Comments Thyroid Stimulating Hormone (TSH) (test code = 59578-4) 0.515 0.350-4.940 [facility] CenterThyroid Stimulating Hormone (TSH) 2017-09-25 11:50:00* Test Item Value Reference Range Interpretation Comments Thyroid Stimulating Hormone (TSH) (test code = 95479-8) 0.515 0.350-4.940 [facility] CenterThyroid Stimulating Hormone (TSH) 2017-09-25 11:50:00* Test Item Value Reference Range Interpretation Comments Thyroid Stimulating Hormone (TSH) (test code = 44878-0) 0.515 0.350-4.940 [facility] CenterUrine Kqvxw1602-91-54 11:45:00* Test Item Value Reference Range Interpretation Comments Urine Color (test code = 5778-6) COLORLESS YELLOW [facility] CenterUrine Yruuzhp6188-15-13 11:45:00* Test Item Value Reference Range Interpretation Comments Urine Clarity (test code = 34410-9) CLEAR CLEAR [facility] CenterUrine Specific Srbfflo6827-17-97 11:45:00 * Test Item Value Reference Range Interpretation Comments Urine Specific Harmony (test code = 5811-5) 1.010 1.010-1.02 5 [facility] CenterUrine cU0407-66-00 11:45:00* Test Item Value Reference Range Interpretation Comments Urine pH (test code = 49171-0) 6 5-7 [facility] CenterUrine Leukocyte Ydxicthh7791-07-93 11:45:00* Test Item Value Reference Range Interpretation Comments Urine Leukocyte Esterase (test code = 5799-2) NEGATIVE NEGATIVE [facility] CenterUrine Radarms4726-09-30 11:45:00* Test Item Value Reference Range Interpretation Comments Urine Nitrite (test code = 20943-2) NEGATIVE NEGATIVE [facility] CenterUrine Tluyjgt5528-97-52 11:45:00* Test Item Value Reference Range Interpretation Comments Urine Protein (test code = 5804-0) NEGATIVE NEGATIVE [facility] CenterUrine Glucose (UA)2017-09-25 11:45:00* Test Item Value Reference Range Interpretation Comments Urine Glucose (UA) (test code = 2349-9) NEGATIVE NEGATIVE [facility] Uhfyclg7684-40-96 11:45:00* Test Item Value Reference Range Interpretation Comments Urine Ketones (test code = 22936-4) NEGATIVE NEGATIVE [facility] Tkgjgqjviine4184-47-58 11:45:00* Test Item Value Reference Range Interpretation Comments Urine Urobilinogen (test code = 24976-8) 0.2 0.2-1 [facility] Hkeoboauo1189-75-80 11:45:00* Test Item Value Reference Range Interpretation Comments Urine Bilirubin (test code = 1978-6) NEGATIVE NEGATIVE [facility] Unwsx2242-99-70 11:45:00* Test Item Value Reference Range Interpretation Comments Urine Blood (test code = 58014-1) NEGATIVE NEGATIVE [facility] CenterUrine Lbtbo8630-92-01 11:45:00* Test Item Value Reference Range Interpretation Comments Urine Color (test code = 5778-6) COLORLESS YELLOW [facility] CenterUrine Jnbyjjc0848-75-45 11:45:00* Test Item Value Reference Range Interpretation Comments Urine Clarity (test code = 39792-8) CLEAR CLEAR [facility] CenterUrine Specific Llbvkbz0422-74-02 11:45:00 * Test Item Value Reference Range Interpretation Comments Urine Specific Harmony (test code = 5811-5) 1.010 1.010-1.02 5 [facility] CenterUrine fD4362-69-04 11:45:00* Test Item Value Reference Range Interpretation Comments Urine pH (test code = 09170-5) 6 5-7 [facility] CenterUrine Leukocyte Weisrmoi2532-90-80 11:45:00* Test Item Value Reference Range Interpretation Comments Urine Leukocyte Esterase (test code = 5799-2) NEGATIVE NEGATIVE [facility] CenterUrine Xttnrze7523-74-70 11:45:00* Test Item Value Reference Range Interpretation Comments Urine Nitrite (test code = 19690-4) NEGATIVE NEGATIVE [facility] CenterUrine Ylubnpj5639-47-97 11:45:00* Test Item Value Reference Range Interpretation Comments Urine Protein (test code = 5804-0) NEGATIVE NEGATIVE [facility] CenterUrine Glucose (UA)2017-09-25 11:45:00* Test Item Value Reference Range Interpretation Comments Urine Glucose (UA) (test code = 2349-9) NEGATIVE NEGATIVE [facility] CenterUrine Bwvafxh3245-19-34 11:45:00* Test Item Value Reference Range Interpretation Comments Urine Ketones (test code = 79896-6) NEGATIVE NEGATIVE [facility] Gtrrkpeqddag4451-50-30 11:45:00* Test Item Value Reference Range Interpretation Comments Urine Urobilinogen (test code = 02737-7) 0.2 0.2-1 [facility] Uqxvjnasb6810-72-42 11:45:00* Test Item Value Reference Range Interpretation Comments Urine Bilirubin (test code = 1978-6) NEGATIVE NEGATIVE [facility] CenterU[facility] Uiomy4207-25-87 11:45:00* Test Item Value Reference Range Interpretation Comments Urine Blood (test code = 95376-2) NEGATIVE NEGATIVE [facility] CenterTotal Ehqpcszdb8147-48-15 11:25:00* Test Item Value Reference Range Interpretation Comments Total Bilirubin (test code = 1975-2) 0.3 0.2-1.2 [facility] CenterAspartate Amino Transf (AST/SGOT) 2017-09-25 11:25:00* Test Item Value Reference Range Interpretation Comments Aspartate Amino Transf (AST/SGOT) (test code = Aspartate Amino Transf (AST/SGOT)) 23 5-34 [facility] CenterAlanine Aminotransferase (ALT/SGPT) 2017-09-25 11:25:00* Test Item Value Reference Range Interpretation Comments Alanine Aminotransferase (ALT/SGPT) (test code = 1742-6) 27 0-55 [facility] CenterTosanpet[facility] Rbqqvtz3931-70-73 11:25:00* Test Item Value Reference Range Interpretation Comments Total Protein (test code = 2885-2) 6.8 6.5-8.1 [facility] CenterAlbumin2018-03-05 11:25:00* Test Item Value Reference Range Interpretation Comments Albumin (test code = 1751-7) 3.4 3.5-5.0 L [facility] CenterGlobulin2018-03-05 11:25:00* Test Item Value Reference Range Interpretation Comments Globulin (test code = 97084-6) 3.4 2.3-3.5 [facility] CenterAlbumin/Globulin Gdfew5975-72-54 11:25:00 * Test Item Value Reference Range Interpretation Comments Albumin/Globulin Ratio (test code = 1759-0) 1.0 0.8-2.0 [facility] CenterAlkaline Hdxdgifgpqx6360-22-53 11:25:00* Test Item Value Reference Range Interpretation Comments Alkaline Phosphatase (test code = 6768-6) 67 40-150 [facility] CenterTotal Bytzjqymf2894-39-05 11:25:00* Test Item Value Reference Range Interpretation Comments Total Bilirubin (test code = 1975-2) 0.3 0.2-1.2 [facility] CenterAspartate Amino Transf (AST/SGOT) 2017-09-25 11:25:00* Test Item Value Reference Range Interpretation Comments Aspartate Amino Transf (AST/SGOT) (test code = Aspartate Amino Transf (AST/SGOT)) 23 5-34 [facility] CenterAlanine Aminotransferase (ALT/SGPT) 2017-09-25 11:25:00* Test Item Value Reference Range Interpretation Comments Alanine Aminotransferase (ALT/SGPT) (test code = 1742-6) 27 0-55 [facility] CenterTotal Qukzsis3399-20-25 11:25:00* Test Item Value Reference Range Interpretation Comments Total Protein (test code = 2885-2) 6.8 6.5-8.1 [facility] CenterAlbumin2018-03-05 11:25:00* Test Item Value Reference Range Interpretation Comments Albumin (test code = 1751-7) 3.4 3.5-5.0 L [facility] CenterGlobulin2018-03-05 11:25:00* Test Item Value Reference Range Interpretation Comments Globulin (test code = 43884-1) 3.4 2.3-3.5 [facility] CenterAlbumin/Globulin Hbfvh2657-16-44 11:25:00 * Test Item Value Reference Range Interpretation Comments Albumin/Globulin Ratio (test code = 1759-0) 1.0 0.8-2.0 [facility] CenterAlkaline Mamilwhcgog8859-01-91 11:25:00* Test Item Value Reference Range Interpretation Comments Alkaline Phosphatase (test code = 6768-6) 67 40-150 [facility] CenterBedside Qlwfklw2855-54-14 13:07:00* Test Item Value Reference Range Interpretation Comments Bedside Glucose (test code = 01238-5) 373 70-120 H Meter ID: [id number] Regional Medical CenterBlood Culture 2017-08-26 07:45:00* Test Item Value Reference Range Interpretation Comments Blood Culture (test code = 41831347) NO GROWTH AFTER [address] [facility]odium Qpwew3921-67-33 07:23:00* Test Item Value Reference Range Interpretation Comments Sodium Level (test code = 2951-2) 139 136-145 [facility] CenterPotassium Cbnno2298-59-27 07:23:00* Test Item Value Reference Range Interpretation Comments Potassium Level (test code = 2823-3) 4.7 3.5-5.1 [facility] CenterChloride Nmwdo6850-23-30 07:23:00* Test Item Value Reference Range Interpretation Comments Chloride Level (test code = 2075-0) 103 98-107 [facility] CenterCarbon Dioxide Kplnr0881-93-50 07:23:00* Test Item Value Reference Range Interpretation Comments Carbon Dioxide Level (test code = 2028-9) 28 22-29 [facility] CenterAnion Vsd9848-10-45 07:23:00* Test Item Value Reference Range Interpretation Comments Anion Gap (test code = 81777-9) 12.7 8-16 [facility] CenterBlood Urea Zmicmkak1933-33-49 07:23:00* Test Item Value Reference Range Interpretation Comments Blood Urea Nitrogen (test code = 3094-0) 19 7-26 [facility] CenterCreatinine2018-02-02 07:23:00* Test Item Value Reference Range Interpretation Comments Creatinine (test code = 2160-0) 1.05 0.57-1.11 [facility] CenterBUN/Creatinine Ijwig4685-19-15 07:23:00* Test Item Value Reference Range Interpretation Comments BUN/Creatinine Ratio (test code = 3097-3) 18 6-25 [facility] CenterEstimat Glomerular Filtration Rate 2017-08-25 07:23:00* Test Item Value Reference Range Interpretation Comments Estimat Glomerular Filtration Rate (test code = 73689-3) 53 >60 L Ranges were taken from the National Kidney Disease Education Program and the [facility] Kidney Foundation literature.Reference ranges:60 or greater: Spiuhx01-88 ( for 3 consecutive months): Chronic kidney disease 15 or less: Kidney failureCH[facility] For ChildrenGlucose Nputm5182-28-43 07:23:00* Test Item Value Reference Range Interpretation Comments Glucose Level (test code = GRF0631) 249 74-118 H [facility] CenterCalcium Kbxhr8386-93-94 07:23:00* Test Item Value Reference Range Interpretation Comments Calcium Level (test code = 00357-7) 8.8 8.4-10.2 [facility] CenterTotal Dbjmkkgol8898-55-41 07:23:00* Test Item Value Reference Range Interpretation Comments Total Bilirubin (test code = 1975-2) 0.5 0.2-1.2 [facility] CenterAspartate Amino Transf (AST/SGOT) 2017-08-25 07:23:00* Test Item Value Reference Range Interpretation Comments Aspartate Amino Transf (AST/SGOT) (test code = Aspartate Amino Transf (AST/SGOT)) 15 5-34 [facility] CenterAlanine Aminotransferase (ALT/SGPT) 2017-08-25 07:23:00* Test Item Value Reference Range Interpretation Comments Alanine Aminotransferase (ALT/SGPT) (test code = 1742-6) 16 0-55 [facility] CenterTotal Wuhoagw9589-99-46 07:23:00* Test Item Value Reference Range Interpretation Comments Total Protein (test code = 2885-2) 6.7 6.5-8.1 [facility] CenterAlbumin2018-02-02 07:23:00* Test Item Value Reference Range Interpretation Comments Albumin (test code = 1751-7) 3.3 3.5-5.0 L [facility] CenterGlobulin2018-02-02 07:23:00* Test Item Value Reference Range Interpretation Comments Globulin (test code = 56351-9) 3.4 2.3-3.5 [facility] CenterAlbumin/Globulin Oxyyt9477-61-24 07:23:00 * Test Item Value Reference Range Interpretation Comments Albumin/Globulin Ratio (test code = 1759-0) 1.0 0.8-2.0 [facility] CenterAlkaline Uyovfxnbwrw4392-53-95 07:23:00* Test Item Value Reference Range Interpretation Comments Alkaline Phosphatase (test code = 6768-6) 62 40-150 [facility] CenterTriglycerides Hmagk1812-42-42 07:23:00* Test Item Value Reference Range Interpretation Comments Triglycerides Level (test code = 2571-8) 216 0-149 H [facility] CenterCholesterol Xjyuk6400-50-11 07:23:00* Test Item Value Reference Range Interpretation Comments Cholesterol Level (test code = 2093-3) 181 0-199 Less than 200 mg/dL Low Cwpg015 - 239 mg/dL Borderline Pxog789 m g/dl and greater High Risk [facility] CenterLDL Myuywxaxkzy6900-23-78 07:23:00* Test Item Value Reference Range Interpretation Comments LDL Cholesterol (test code = 2089-1) 109 60-130 [facility] CenterHDL Tdhbpswocyh1021-77-65 07:23:00* Test Item Value Reference Range Interpretation Comments HDL Cholesterol (test code = 2085-9) 29 40-60 L [facility] CenterCholesterol/HDL Fwpos1491-17-45 07:23:00 * Test Item Value Reference Range Interpretation Comments Cholesterol/HDL Ratio (test code = 9830-1) 6.2 3.0-3.6 H [facility] CenterTriglycerides Xdauf2854-98-13 07:23:00* Test Item Value Reference Range Interpretation Comments Triglycerides Level (test code = 2571-8) 216 0-149 H [facility] CenterCholesterol Hhlkk0613-99-00 07:23:00* Test Item Value Reference Range Interpretation Comments Cholesterol Level (test code = 2093-3) 181 0-199 Less than 200 mg/dL Low Ljux065 - 239 mg/dL Borderline Aolq086 m g/dl and greater High Risk [facility] CenterLDL Udgqbfszgrg3643-59-94 07:23:00* Test Item Value Reference Range Interpretation Comments LDL Cholesterol (test code = 2089-1) 109 60-130 [facility] Ppwgwxolexp3747-02-22 07:23:00* Test Item Value Reference Range Interpretation Comments HDL Cholesterol (test code = 2085-9) 29 40-60 L [facility] CenterCholesterol/HDL Vfhbr5404-42-39 07:23:00 * Test Item Value Reference Range Interpretation Comments Cholesterol/HDL Ratio (test code = 9830-1) 6.2 3.0-3.6 H [facility] CenterTriglycerides Lknkm8809-00-76 07:23:00* Test Item Value Reference Range Interpretation Comments Triglycerides Level (test code = 2571-8) 216 0-149 H [facility] CenterCholesterol Rnlib6186-70-18 07:23:00* Test Item Value Reference Range Interpretation Comments Cholesterol Level (test code = 2093-3) 181 0-199 Less than 200 mg/dL Low Ozoh171 - 239 mg/dL Borderline Jzmc898 m g/dl and greater High Risk [facility] CenterLDL Gntbsqevdbk5744-32-70 07:23:00* Test Item Value Reference Range Interpretation Comments LDL Cholesterol (test code = 2089-1) 109 60-130 [facility] Thubmjikfei4016-57-15 07:23:00* Test Item Value Reference Range Interpretation Comments HDL Cholesterol (test code = 2085-9) 29 40-60 L [facility] CenterCholesterol/HDL Mhmif3191-30-05 07:23:00 * Test Item Value Reference Range Interpretation Comments Cholesterol/HDL Ratio (test code = 9830-1) 6.2 3.0-3.6 H [facility] CenterTriglycerides Elrok4503-40-76 07:23:00* Test Item Value Reference Range Interpretation Comments Triglycerides Level (test code = 2571-8) 216 0-149 H [facility] CenterCholesterol Ftviu2340-28-29 07:23:00* Test Item Value Reference Range Interpretation Comments Cholesterol Level (test code = 2093-3) 181 0-199 Less than 200 mg/dL Low Ihzz149 - 239 mg/dL Borderline Ayuv220 m g/dl and greater High Risk [facility] Xrvqafwpgac7128-30-34 07:23:00* Test Item Value Reference Range Interpretation Comments LDL Cholesterol (test code = 2089-1) 109 60-130 [facility] CenterHDL Uirndaymcyo3428-59-94 07:23:00* Test Item Value Reference Range Interpretation Comments HDL Cholesterol (test code = 2085-9) 29 40-60 L [facility] CenterCholesterol/HDL Imdcs7562-43-76 07:23:00 * Test Item Value Reference Range Interpretation Comments Cholesterol/HDL Ratio (test code = 9830-1) 6.2 3.0-3.6 H [facility] CenterTriglycerides Whyhc3364-89-32 07:23:00* Test Item Value Reference Range Interpretation Comments Triglycerides Level (test code = 2571-8) 216 0-149 H [facility] CenterCholesterol Topju4922-17-46 07:23:00* Test Item Value Reference Range Interpretation Comments Cholesterol Level (test code = 2093-3) 181 0-199 Less than 200 mg/dL Low Pxei383 - 239 mg/dL Borderline Vovc870 m g/dl and greater High Risk [facility] CenterLDL Uthlpnrqukt9477-71-84 07:23:00* Test Item Value Reference Range Interpretation Comments LDL Cholesterol (test code = 2089-1) 109 60-130 [facility] CenterHDL Zbvdfgnzosp5128-05-73 07:23:00* Test Item Value Reference Range Interpretation Comments HDL Cholesterol (test code = 2085-9) 29 40-60 L [facility] CenterCholesterol/HDL Hpyax2582-27-88 07:23:00 * Test Item Value Reference Range Interpretation Comments Cholesterol/HDL Ratio (test code = 9830-1) 6.2 3.0-3.6 [facility] CenterTriglycerides Prajh7611-54-56 07:23:00* Test Item Value Reference Range Interpretation Comments Triglycerides Level (test code = 2571-8) 216 0-149 [facility] CenterCholesterol Cbzsh8707-33-32 07:23:00* Test Item Value Reference Range Interpretation Comments Cholesterol Level (test code = 2093-3) 181 0-199 Less than 200 mg/dL Low Kplg575 - 239 mg/dL Borderline Kkxd832 m g/dl and greater High Risk [facility] CenterLDL Fhofqgsgqkj4536-09-95 07:23:00* Test Item Value Reference Range Interpretation Comments LDL Cholesterol (test code = 2089-1) 109 60-130 [facility] Qtjdogqnumw5204-98-93 07:23:00* Test Item Value Reference Range Interpretation Comments HDL Cholesterol (test code = 2085-9) 29 40-60 L [facility] CenterCholesterol/HDL Gajqb0829-17-58 07:23:00 * Test Item Value Reference Range Interpretation Comments Cholesterol/HDL Ratio (test code = 9830-1) 6.2 3.0-3.6 [facility] CenterWhite Blood Vzvak9904-65-39 07:08:00* Test Item Value Reference Range Interpretation Comments White Blood Count (test code = 6690-2) 4.69 4.8-10.8 L [facility] CenterRed Blood Immnr5634-44-46 07:08:00* Test Item Value Reference Range Interpretation Comments Red Blood Count (test code = 789-8) 4.53 3.6-5.1 [facility] CenterHemoglobin2018-02-02 07:08:00* Test Item Value Reference Range Interpretation Comments Hemoglobin (test code = 52827-8) 11.9 12.0-16.0 L [facility] CenterHematocrit2018-02-02 07:08:00* Test Item Value Reference Range Interpretation Comments Hematocrit (test code = 4544-3) 39.4 34.2-44.1 [facility] CenterMean Corpuscular Okyjxs0765-60-31 07:08:00* Test Item Value Reference Range Interpretation Comments Mean Corpuscular Volume (test code = 787-2) 87.0 81-99 [facility] CenterMean Corpuscular Kyhfmhbckc3375-73-51 07:08:00* Test Item Value Reference Range Interpretation Comments Mean Corpuscular Hemoglobin (test code = 785-6) 26.3 28-32 L [facility] CenterMean Corpuscular Hemoglobin Concent 2017-08-25 07:08:00* Test Item Value Reference Range Interpretation Comments Mean Corpuscular Hemoglobin Concent (test code = 786-4) 30.2 31-35 L [facility] CenterRed Cell Distribution Rcnho3236-05-24 07:08:00* Test Item Value Reference Range Interpretation Comments Red Cell Distribution Width (test code = 59250-1) 14.8 11.7 -14.4 H [facility] CenterPlatelet Gdiky2494-97-28 07:08:00* Test Item Value Reference Range Interpretation Comments Platelet Count (test code = 777-3) 177 140-360 [facility] CenterNeutrophils (%) (Auto)2017-08-25 07:08:00 * Test Item Value Reference Range Interpretation Comments Neutrophils (%) (Auto) (test code = 42252-0) 55.5 38.7-80.0 [facility] CenterLymphocytes (%) (Auto)2017-08-25 07:08:00 * Test Item Value Reference Range Interpretation Comments Lymphocytes (%) (Auto) (test code = 736-9) 28.8 18.0-39.1 [facility] CenterMonocytes (%) (Auto)2017-08-25 07:08:00* Test Item Value Reference Range Interpretation Comments Monocytes (%) (Auto) (test code = 5905-5) 8.7 4.4-11.3 [facility] CenterEosinophils (%) (Auto)2017-08-25 07:08:00 * Test Item Value Reference Range Interpretation Comments Eosinophils (%) (Auto) (test code = 713-8) 5.1 0.0-6.0 [facility] CenterBasophils (%) (Auto)2017-08-25 07:08:00* Test Item Value Reference Range Interpretation Comments Basophils (%) (Auto) (test code = 706-2) 1.3 0.0-1.0 H [facility] CenterIM GRANULOCYTES %2017-08-25 07:08:00* Test Item Value Reference Range Interpretation Comments IM GRANULOCYTES % (test code = IM GRANULOCYTES %) 0.6 0.0- 1.0 [facility] CenterNeutrophils # (Auto)2017-08-25 07:08:00* Test Item Value Reference Range Interpretation Comments Neutrophils # (Auto) (test code = 751-8) 2.6 2.1-6.9 [facility] CenterLymphocytes # (Auto)2017-08-25 07:08:00* Test Item Value Reference Range Interpretation Comments Lymphocytes # (Auto) (test code = 49874-2) 1.4 1.0-3.2 [facility] CenterMonocytes # (Auto)2017-08-25 07:08:00* Test Item Value Reference Range Interpretation Comments Monocytes # (Auto) (test code = 742-7) 0.4 0.2-0.8 [facility] CenterEosinophils # (Auto)2017-08-25 07:08:00* Test Item Value Reference Range Interpretation Comments Eosinophils # (Auto) (test code = 711-2) 0.2 0.0-0.4 [facility] CenterBasophils # (Auto)2017-08-25 07:08:00* Test Item Value Reference Range Interpretation Comments Basophils # (Auto) (test code = 704-7) 0.1 0.0-0.1 [facility] CenterAbsolute Immature Granulocyte (auto 2017-08-25 07:08:00* Test Item Value Reference Range Interpretation Comments Absolute Immature Granulocyte (auto (joseph t code = Absolute Immature Granulocyte (auto) 0.03 0-0.1 [facility] CenterCreatine Legkgl6767-75-88 01:09:00* Test Item Value Reference Range Interpretation Comments Creatine Kinase (test code = 2157-6) 41 29-168 [facility] CenterCreatine Kinase TS8092-61-55 01:09:00* Test Item Value Reference Range Interpretation Comments Creatine Kinase MB (test code = 40445-4) 1.30 0.00-5.00 [facility] CenterTroponin M7977-66-67 01:09:00* Test Item Value Reference Range Interpretation Comments Troponin I (test code = 18331-8) 0.006 0-0.300 [facility] CenterHemoglobin A1c Nepnmet1049-14-81 18:39:00 * Test Item Value Reference Range Interpretation Comments Hemoglobin A1c Percent (test code = Hemoglobin A1c Percent) 7.6 4.0-7.0 H [facility] CenterHemoglobin A1c Dvbpsdh6539-86-17 18:39:00 * Test Item Value Reference Range Interpretation Comments Hemoglobin A1c Percent (test code = Hemoglobin A1c Percent) 7.6 4.0-7.0 [facility] CenterHemoglobin A1c Wdufdax4565-51-84 18:39:00 * Test Item Value Reference Range Interpretation Comments Hemoglobin A1c Percent (test code = Hemoglobin A1c Percent) 7.6 4.0-7.0 [facility] CenterHemoglobin A1c Ufgrpci9815-88-58 18:39:00 * Test Item Value Reference Range Interpretation Comments Hemoglobin A1c Percent (test code = Hemoglobin A1c Percent) 7.6 4.0-7.0 [facility] CenterHemoglobin A1c Aomsvtl2664-83-16 18:39:00 * Test Item Value Reference Range Interpretation Comments Hemoglobin A1c Percent (test code = Hemoglobin A1c Percent) 7.6 4.0-7.0 [facility] CenterHemoglobin A1c Ccbptga8315-95-32 18:39:00 * Test Item Value Reference Range Interpretation Comments Hemoglobin A1c Percent (test code = Hemoglobin A1c Percent) 7.6 4.0-7.0 [facility] CenterHemoglobin A1c Jzvjddc1445-68-88 18:39:00 * Test Item Value Reference Range Interpretation Comments Hemoglobin A1c Percent (test code = Hemoglobin A1c Percent) 7.6 4.0-7.0 [facility] CenterHemoglobin A1c Pcrqoxs3681-44-81 18:39:00 * Test Item Value Reference Range Interpretation Comments Hemoglobin A1c Percent (test code = Hemoglobin A1c Percent) 7.6 4.0-7.0 [facility] CenterHemoglobin A1c Yxsvyov8317-86-19 18:39:00 * Test Item Value Reference Range Interpretation Comments Hemoglobin A1c Percent (test code = Hemoglobin A1c Percent) 7.6 4.0-7.0 H [facility] CenterHemoglobin A1c Htusqdq0146-84-00 18:39:00 * Test Item Value Reference Range Interpretation Comments Hemoglobin A1c Percent (test code = Hemoglobin A1c Percent) 7.6 4.0-7.0 [facility] CenterUrine XOV6968-24-32 07:50:00* Test Item Value Reference Range Interpretation Comments Urine WBC (test code = 5821-4) 0-5 0-5 [facility] CenterUrine TDP5855-36-43 07:50:00* Test Item Value Reference Range Interpretation Comments Urine RBC (test code = 18123-5) 0-5 0-5 [facility] CenterUrine Cdowwawn9654-95-62 07:50:00* Test Item Value Reference Range Interpretation Comments Urine Bacteria (test code = 60178-7) FEW NONE [facility] CenterUrine Epithelial Ycvqf1992-42-65 07:50:00 * Test Item Value Reference Range Interpretation Comments Urine Epithelial Cells (test code = 53581-8) FEW NONE [facility] CenterB-Type Natriuretic Djlttah4123-33-38 07:47:00* Test Item Value Reference Range Interpretation Comments B-Type Natriuretic Peptide (test code = 94213-8) 17.8 0-100 [facility] CenterThyroid Stimulating Hormone (TSH) 2017-08-24 07:47:00* Test Item Value Reference Range Interpretation Comments Thyroid Stimulating Hormone (TSH) (test code = 91157-9) 1.123 0.350-4.940 [facility] CenterInfluenza Virus Types A,B Antigen 2017-08-24 07:39:00* Test Item Value Reference Range Interpretation Comments Influenza Virus Types A,B Antigen (test code = 82606-7) NEGATIVE NEGATIVE [facility] Fsqhy0717-59-71 07:32:00* Test Item Value Reference Range Interpretation Comments Magnesium Level (test code = 40857-0) 2.0 1.3-2.1 [facility] Zqbvp2143-33-05 07:32:00* Test Item Value Reference Range Interpretation Comments Magnesium Level (test code = 86667-4) 2.0 1.3-2.1 [facility] Hospitalgnesium Datqw6805-72-52 07:32:00* Test Item Value Reference Range Interpretation Comments Magnesium Level (test code = 29599-5) 2.0 1.3-2.1 [facility] CenterProthrombin Txsx4287-01-58 07:19:00* Test Item Value Reference Range Interpretation Comments Prothrombin Time (test code = 5902-2) 13.0 11.9-14.5 [facility] CenterProthromb Time International Ratio 2017-08-24 07:19:00* Test Item Value Reference Range Interpretation Comments Prothromb Time International Ratio (test code = 6301-6) 0.94 Oral Anticoagulant Therapy INR Values:1. Low Intensity Therapy 1.5 - 2.02 . Moderate Intensity Therapy 2.0 - 3.03. High Intensity Therapy(1) 2.5 - 3. 54. High Intensity Therapy(2) 3.0 - 4.05. Panic Value INR > 5.0 [facility] CenterActivated Partial Thromboplast Time 2017-08-24 07:19:00* Test Item Value Reference Range Interpretation Comments Activated Partial Thromboplast Time (test code = 44482-4) 25.1 23.8-35.5 [facility] CenterUrine Eopei2665-29-13 07:18:00* Test Item Value Reference Range Interpretation Comments Urine Color (test code = 5778-6) YELLOW YELLOW [facility] CenterUrine Gvgiydh1617-66-97 07:18:00* Test Item Value Reference Range Interpretation Comments Urine Clarity (test code = 50036-1) CLEAR CLEAR [facility] CenterUrine Specific Obrojgq7067-93-27 07:18:00 * Test Item Value Reference Range Interpretation Comments Urine Specific Harmony (test code = 5811-5) 1.025 1.010-1.02 5 [facility] CenterUrine sV4835-45-76 07:18:00* Test Item Value Reference Range Interpretation Comments Urine pH (test code = 40402-4) 5 5-7 [facility] Leukocyte Msoxqdbz2860-79-80 07:18:00* Test Item Value Reference Range Interpretation Comments Urine Leukocyte Esterase (test code = 5799-2) NEGATIVE NEGATIVE [facility] Wpbozui7133-40-75 07:18:00* Test Item Value Reference Range Interpretation Comments Urine Nitrite (test code = 77914-1) NEGATIVE NEGATIVE [facility] CenterUrine Qienmae6235-91-52 07:18:00* Test Item Value Reference Range Interpretation Comments Urine Protein (test code = 5804-0) NEGATIVE NEGATIVE [facility] Glucose (UA)2017-08-24 07:18:00* Test Item Value Reference Range Interpretation Comments Urine Glucose (UA) (test code = 2349-9) 3+ NEGATIVE H [facility] CenterUrine Kqvozpa5912-03-01 07:18:00* Test Item Value Reference Range Interpretation Comments Urine Ketones (test code = 75854-6) NEGATIVE NEGATIVE [facility] Rbxfrhttwntr5401-52-06 07:18:00* Test Item Value Reference Range Interpretation Comments Urine Urobilinogen (test code = 60993-6) 0.2 0.2-1 [facility] CenterUrine Fyjrxzeyh3427-57-62 07:18:00* Test Item Value Reference Range Interpretation Comments Urine Bilirubin (test code = 1978-6) NEGATIVE NEGATIVE [facility] Xpuyc3875-45-89 07:18:00* Test Item Value Reference Range Interpretation Comments Urine Blood (test code = 22249-1) NEGATIVE NEGATIVE [facility] ChildrenUS [facility] RETROPERITONEAL COMP [facility] [address] [address] Patient Name: KALYANI TALAVERA MR #: [id number] : 1955 Age/Sex: 62/F Req #: [id number] Adm Physician: BENJAMIN MASTERS MD Ordered by: BENJAMIN MASTERS MD Report #: [id number] Locat ion: IMCU Room/Bed: [place] [address] Procedure: [id number] U S/US RENAL RETROPERITONEAL COMP Exam Date: [...] obstruction. CONCLUSION: Normal renal ultrasound. Dictated by: Lamonte Munoz M.D. on 10/2017 at 11:40 Electronically approved by: Lamonte Munoz M.D. on 12/25/2017 at 11:40 Dictated By: LAMONTE MUNOZ MD Electronica lly Signed By: LAMONTE MUNOZ MD on 12/25/17 1140 Transcribed By: ZOLTAN on 11/08 1140 COPY TO: BENJAMIN MASTERS MD CT BRAIN WO [place] [address] Patient Name: KALYANI TALAVERA MR #: [id number] : 1955 Age/Sex: 62/F Req #: [id number] Adm Physician: Ordered by: FLO TOLBERT MD Report #: [id number] Location: ER Room/Bed: Procedure: [id number] CT/CT BRAIN WO Exam Date: Exam Time: [...] TO: Treasure TOLBERT MD CHEST 2 VIEWS [place] [address] [place] [address] Patient Name: KALYANI TALAVERA MR #: [id number] : 1955 Age/Sex: 62/F Req #: [id number] Adm Physician: Ordered by: FLO TOLBERT MD Report #: [id number] Location: ER Room/Bed: Procedure: [id number] DX/CHEST 2 VIEWS Exam Date: 12/23/17 Exam Time: 2210 REPORT STATUS: Signed CHEST 2 VIEWS, Technique: CHEST 2 VIEWS Comparison: 10/12/2017 Cl inical history: Near syncope DISCUSSION: See impression IMPRESSION : 1. Stable mildly enlarged cardiomediastinal silhouette. 2. Diffuse interst itial prominence which may reflect central vascular congestion/edema. 3. No consolidation, pleural effusion or pneumothorax. Signed by: Dr Mikey guzman MD on 12/23/2017 10:43 PM Dictated By: MIKEY BEE MD [facility] y Signed By: MIKEY BEE MD on 12/23/172242 Transcribed By: JIM on 09/10 COPY TO: FLO TOLBERT MD KNEE LEFT THREE VIEWS [place] [address] Patient Name: KALYANI TALAVERA MR #: [id number] : 1955 Age/Sex: 62/F Req #: [id number] Adm Physician: Ordered by: JACQUES JANE MD Report #: [id number] Location: ER Room/Bed: Procedure: [id number] DX/KNEE LEFT THREE VIE WS Exam Date: [...] JACQUES JANE MD PELVIS AP 1-2 VIEWS [place] [address] Patient Name: KALYANI TALAVERA MR #: [id number] : 1955 Age/Sex: 62/F Req #: [id number] Adm Physician: Ordered by: JACQUES JANE MD Report #: [id number] Location: ER Room/Bed: Procedure: [id number] DX/PELVIS AP 1-2 VIEWS Exam Date: 10/31/17 [...] TO: JACQUES JANE MD CHEST 2 VIEWS [place] [address] Patient Name: KALYANI TALAVERA MR #: [id number] : 1955 Age/Sex: 62/F Req #: [id number] Adm Physician: Ordered by: FLO TOLBERT MD Report #: [id number] Location: ER Room/Bed: Procedure: [id number] DX/CHEST 2 VIEWS Exam Date: 10/12/17 Exam [...] TO: FLO TOLBERT MD FOOT RIGHT COMPLETE [place] [address] Patient Name: KALYANI TALAVERA MR #: [id number] : 1955 Age/Sex: 62/F Req #: [id number] Adm Physician: Ordered by: JEFFREY MCDUFFIE MD Report #: [id number] Location: ER Room/Bed: Procedure: 1192-9923 DX/FOOT RIGHT COMPLETE Exa m Date: 10/11/17 [...] JEFFREY MCDUFFIE MD KNEE LEFT THREE VIEWS [place] [address] [place] [address] Patient Name: KALYANI TALAVERA MR #: [id number] : 1955 Age/Sex: 62/F Req #: [id number] Adm Physician: Ordered by: JEFFREY MCDUFFIE MD Report #: [id number] Location: ER Room/Bed: Procedure: [id number] DX/KNEE LEFT THREE VIEWS E xam Date: [...] TO: JEFFREY MCDUFFIE MD CT CHEST WO [place] [address] Patient Name: KALYANI TALAVERA MR #: [id number] : 1955 Age/Sex: 62/F Req #: [id number] Adm Physician: Ordered by: RAFAELA ASTUDILLO SKI TOW OPERATOR Report #: [id number] Location: ER Room/Bed: Procedure: [id number] CT/CT CHEST WO Exam Date: Exam Time: [...] on 09/25/17 1307 COPY TO: RAFAELA ASTUDILLO SKI TOW OPERATOR CHEST SINGLE (PORTABLE) [place] [address] Patient Name: KALYANI TALAVERA MR #: [id number] : 1955 Age/Sex: 62/F Req #: [id number] Adm Physician: Ordered by: RAFAELA ASTUDILLO SKI TOW OPERATOR Report #: [id number] Location: ER Room/Bed: Procedure: [id number] DX/CHEST SINGLE (PORTABLE) E xam Date: 09/25/17 [...] t 11:06 Dictated By: MAE SANCHEZ MD 05 Transcribed By: ZOLTAN on 09/25/171105 COPY TO: RAFAELA ASTUDILLO SKI TOW OPERATOR CHEST 2 VIEWS [place] [address] Patient Name: KALYANI TALAVERA MR #: [id number] : 1955 Age/Sex: 62/F Req #: [id number] Adm Physician: Ordered by: FLO TOLBERT MD Report #: [id number] Location: ER Room/Bed: Procedure: [id number] DX/CHEST 2 VIEWS Exam Date: Exam Time: 0715 REPORT STATUS: Signed PROCEDURE: CHEST 2 VIEWS TECHNIQUE: PA and lateral chest totaling 2 radio graphs INDICATION: Shortness of breath and syncope COMPARISON: [facility], DX, CHEST 2 VIEWS, 10/15/2016, 23:42. FINDINGS: Bilate ral interstitial opacity, cardiomegaly and central vascular prominence. No si zable pleural effusion. Stable elevation of the right hemidiaphragm. Intact s [place]. CONCLUSION: Cardiomegaly with pulmonary edema. Dictated by: Lamonte Munoz M.D. on 08/24/2017 at 7:51 Electronica lly approved by: Lamonte Munoz M.D. on 08/24/2017 at 7:51 Dictated By: LAMONTE MUNOZ MD 0751 Transcribed By: ZOLTAN on 08/24/17 075 COPY TO: AILEEN TOLBERT MD CT CERVICAL SPINE WO [facility] [address] [address] Patient Name: KALYANI TALAVERA MR #: [id number] : 1955 Age/Sex: 62/F Req #: [id number] Adm Physician: Ordered by: FLO TOLBERT MD Report #: [id number] Location: ER Room/Bed: Procedure: [id number] CT/CT CERVICAL SPINE WO Exam D ate: [...] TO: FLO TOLBERT MD CT BRAIN WO [place] [address] Patient Name: KALYANI TALAVERA MR #: [id number] : 0 1955 Age/Sex: 62/F Req #: [id number] Adm Physician: Ordered by: FLO TOLBERT MD Report #: [id number] Location: ER Room/Bed: Procedure: [id number] CT/CT BRAIN WO Exam Date: 08/10 Exam [...] 7:54 AM Dictated By: RILEY WYNN MD [facility] Signed By: RILEY WYNN MD on 08/24/17 0755 Transcribed By: JIM on 08/24/17 0757 COPY TO: FLO TOLBERT MD
--- NOTE | 2020-03-12 03:24 | Emergency Department Note ---
History of Present Illnes History of Present Illness Chief Complaint: Respiratory History of Present Illness This is a 65 year old female c/o shortness of breath x 4 days. Patient also states her legs have been swelling. Patient has hx of COPD and wears 4L NC at home. Patient slightly tachypneic at this time. pt has h/o copd and chf . 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 Any updates have been documented here. Past Medical History Recent Fever: No Clinical Suspicion of Infectio: No New/Unexplained Change in Ment: No Past Medical History: Hypertension, Diabetes, COPD, CHF, Asthma, A-Fib, UTI's, Anemia, Anxiety, Depression, GERD, Hyperlipedemia, Chronic Back Pain Other Medical History: Home o2 at 4L, home cpap, neuropathy, restless leg, sleep apnea Past Surgical History: Appendectomy Other Surgery: Left foot Social History Smoking Cessation: Current every day smoker Alcohol Use: None Any Illegal Drug Use: No Family History Family history of heart diseas: No Other Last Tetanus: UNK Review of Systems Review of Systems Constitutional: Reports no symptoms EENTM: Reports no symptoms Cardiovascular: Reports no symptoms Respiratory: Reports as per HPI Gastrointestinal: Reports no symptoms Genitourinary: Reports no symptoms Musculoskeletal: Reports no symptoms Integumentary: Reports as per HPI Neurological: Reports no symptoms Psychological: Reports no symptoms Endocrine: Reports no symptoms Hematological/Lymphatic: Reports no symptoms Physical Exam Related Data Allergies: Coded Allergies: metronidazole (Verified Allergy, Intermediate, RASH,ITCHING, 03/02/20) Penicillins (Verified Allergy, Unknown, rash, 01/10/19) Triage Vital Signs Vital Signs Date Time Temp Pulse Resp B/P (MAP) Pulse Ox O2 Delivery O2 Flow Rate FiO2 8/20/20 03:15 98.2 79 26 145/83 100 Nasal Cannula 4.0 Vital signs reviewed: Yes Physical Exam CONSTITUTIONAL Constitutional: Present well-developed, Present well-nourished HENT HENT: Present normocephalic, Present atraumatic, Present oropharynx clear/moist, Present nose normal HENT L/R: Present left ext ear normal, Present right ext ear normal EYES Eyes: Reports PERRL, Reports conjunctivae normal NECK Neck: Present ROM normal PULMONARY Pulmonary: Present effort normal, Present respiratory distress (mild tachypnea), Present other (wheezine and decreased breath sounds at base bilateral) CARDIOVASCULAR Cardiovascular: Present regular rhythm, Present heart sounds normal, Present capillary refill normal, Present normal rate GASTROINTESTINAL Abdominal: Present soft, Present nontender, Present bowel sounds normal GENITOURINARY Genitourinary: Present exam deferred SKIN Skin: Present warm, Present dry, Present rash (buttocks) MUSCULOSKELETAL Musculoskeletal: Present ROM normal, Present edema (mild pitting 1+ at ankles) NEUROLOGICAL Neurological: Present alert, Present oriented x 3, Present no gross motor or sensory deficits PSYCHOLOGICAL Psychological: Present mood/affect normal, Present judgement normal Results Laboratory Laboratory Laboratory Tests Test 03/12/20 03:23 White Blood Count 5.90 x10e3/uL (4.8-10.8) Red Blood Count 3.92 x10e6/uL (3.6-5.1) Hemoglobin 9.4 g/dL (12.0-16.0) Hematocrit 33.1 % (34.2-44.1) Mean Corpuscular Volume 84.4 fL (81-99) Mean Corpuscular Hemoglobin 24.0 pg (28-32) Mean Corpuscular Hemoglobin Concent 28.4 g/dL (31-35) Red Cell Distribution Width 22.3 % (11.7-14.4) Platelet Count 154 x10e3/uL (140-360) Neutrophils (%) (Auto) 77.0 % (38.7-80.0) Lymphocytes (%) (Auto) 13.4 % (18.0-39.1) Monocytes (%) (Auto) 4.7 % (4.4-11.3) Eosinophils (%) (Auto) 2.5 % (0.0-6.0) Basophils (%) (Auto) 0.7 % (0.0-1.0) Neutrophils # (Auto) 4.5 (2.1-6.9) Lymphocytes # (Auto) 0.8 (1.0-3.2) Monocytes # (Auto) 0.3 (0.2-0.8) Eosinophils # (Auto) 0.2 (0.0-0.4) Basophils # (Auto) 0.0 (0.0-0.1) Absolute Immature Granulocyte (auto 0.10 x10e3/uL (0-0.1) Sodium Level 142 mmol/L (136-145) Potassium Level 4.2 mmol/L (3.5-5.1) Chloride Level 104 mmol/L (98-107) Carbon Dioxide Level 28 mmol/L (22-29) Anion Gap 14.2 mmol/L (8-16) Blood Urea Nitrogen 11 mg/dL (7-26) Creatinine 0.81 mg/dL (0.57-1.11) Estimat Glomerular Filtration Rate > 60 ML/MIN (60-) BUN/Creatinine Ratio 14 (6-25) Glucose Level 101 mg/dL (74-118) Calcium Level 8.8 mg/dL (8.4-10.2) Total Bilirubin 0.4 mg/dL (0.2-1.2) Aspartate Amino Transf (AST/SGOT) 31 IU/L (5-34) Alanine Aminotransferase (ALT/SGPT) 33 IU/L (0-55) Alkaline Phosphatase 131 IU/L (40-150) Creatine Kinase 42 IU/L (29-168) Creatine Kinase MB 1.50 ng/mL (0-5.0) Troponin I < 0.001 ng/mL (0-0.300) B-Type Natriuretic Peptide 70.5 pg/mL (0-100) Total Protein 6.4 g/dL (6.5-8.1) Albumin 3.1 g/dL (3.5-5.0) Globulin 3.3 g/dL (2.3-3.5) Albumin/Globulin Ratio 0.9 (0.8-2.0) Lab results reviewed: Yes Imaging Imaging results reviewed: Yes Impressions Procedure: [id number] DX/CHEST SINGLE (PORTABLE) Exam Date: 03/12/20 Exam Time: 0 REPORT STATUS: Signed EXAMINATION: CHEST SINGLE (PORTABLE) INDICATION: Short of breath, CHF COMPARISON: Chest x-ray 02/26/2020 FINDINGS: TUBES and LINES: None. LUNGS/PLEURA: Low lung volumes. Mild prominence of pulmonary interstitium and vessels. Partial obscuration of the hemidiaphragms. No pneumothorax. Bronchial cuffing. HEART AND MEDIASTINUM: Cardiac size is mildly enlarged. BONES AND SOFT TISSUES: No acute osseous lesion. Soft tissues are unremarkable. UPPER ABDOMEN: No free air under the diaphragm. IMPRESSION: Mild cardiomegaly and pulmonary vascular congestion. Suspect mild pulmonary interstitial edema and trace pleural effusions.. Signed by: Bradley Nascimento DO on 03/12/2020 3:37 AM Dictated By: BRADLEY NASCIMENTO DO 6 Transcribed By: JIM on 03/12/20336 COPY TO: JACQUES JANE MD~ Procedures 12 Lead ECG Interpretation ECG Interpretation : ECG: ECG 1 Thin Film Technician: Interpreted by ED physician Date: Mar 12, 2020 Time: 03:15 Prior ECG tracings: reviewed Rhythm: sinus rhythm Rate: normal BPM: 79 QRS axis: normal ST segments normal: Yes T waves normal: Yes Other findings: no other findings Clinical Impression: normal ECG Assessment & Plan Medical Decision Making MDM pt with h/o copd and chf with sob for 4 days, wheezing on exam cbc, cmp, ekg, cxr, bnp, cardiac enzymes, ordered to eval for pneumonia, pulmon emani edema, myocardial infarction, electrolyte abnormality albuterol neb times 2 ordered atrovent neb times 1 ordered PT WITH MILD INTERSTITIAL EDEMA ON CXR LASIX 40 MG IV ORDERED Reassessment Reassessment time: 04:11 Reassessment WHEEZING IMPROVED, ONLY MINIMAL END EXPIRATORY WHEEZING AT THIS TIME Assessment & Plan Final Impression: (1) Mary albicans infection (2) CHF (congestive heart failure) (3) COPD (chronic obstructive pulmonary disease) Depart Disposition: HOME, SELF-CARE Last Vital Signs Date Time Temp Pulse Resp B/P (MAP) Pulse Ox O2 Delivery O2 Flow Rate FiO2 03/12/20 03:15 98.2 79 26 145/83 100 Nasal Cannula 4.0 Home Meds Reported Medications Tramadol HCl (Tramadol HCl) 100 Mg Tablet, 50 MG PO Q12H PRN for Mild Pain (1-3) or Fever>100.8 03/05/20 Ondansetron Hcl (ZOFRAN) 8 Mg Tablet, 4 MG PO Q12H PRN for NAUSEA 03/05/20 Ciprofloxacin Hcl (CIPRO) 500 Mg Tablet, 500 MG PO Q12H, #30 TAB 03/05/20 Insulin Lispro (HUMALOG) 100 Unit/1 Ml Insuln.pen, 30 UNITS SQ TIDWM 01/21/19 Insulin Glargine (LANTUS 3ML PEN) 100 Units/1 Ml Inj, 60 UNITS SQ HS 01/21/19 Glimepiride (GLIMEPIRIDE) 2 Mg Tablet, 2 MG PO DAILY 01/16/19 Losartan Potassium (LOSARTAN POTASSIUM) 50 Mg Tablet, 50 MG PO DAILY 01/16/19 Potassium Chloride (POTASSIUM CHLORIDE) 10 Meq Tablet.er, 10 MEQ PO DAILY 01/16/19 Spironolactone (SPIRONOLACTONE) 25 Mg Tablet, 25 MG PO DAILY, TAB 06/27/18 Sertraline Hcl (SERTRALINE HCL) 100 Mg Tablet, 100 MG PO DAILY, TAB 06/27/18 Ropinirole Hcl (ROPINIROLE HCL) 1 Mg Tablet, 2 MG PO QID, #30 TAB 12/24/17 Simvastatin (SIMVASTATIN) 40 Mg Tablet, 40 MG PO 2100, #30 TAB 09/28/17 Gabapentin (GABAPENTIN) 300 Mg Capsule, 300 MG PO Q6H, #120 CAP 09/28/17 Furosemide (FUROSEMIDE) 40 Mg Tablet, 40 MG PO BID, #60 TAB 09/28/17 Metoprolol Tartrate (METOPROLOL TARTRATE) 50 Mg Tablet, 50 MG PO BID, TAB 09/28/17 Omeprazole (OMEPRAZOLE) 40 Mg Capsule.dr, 40 MG PO DAILY 09/28/17 Aspirin (ASPIR 81) 81 Mg Tablet.dr, 81 MG PO DAILY 09/28/17 JACQUES JANE MD Mar 12, 2020 03:24
[2020-03-12 03:29] LABS: BASOPHILS % 0.7 % (0.0-1.0); EOSINOPHILS # (AUTO) 0.2 (0.0-0.4); EOSINOPHILS % 2.5 % (0.0-6.0); HEMATOCRIT 33.1 % (34.2-44.1); HEMOGLOBIN 9.4 g/dL (12.0-16.0); LYMPHOCYTES # (AUTO) 0.8 (1.0-3.2); LYMPHOCYTES % 13.4 % (18.0-39.1); MEAN CORPUSCULAR HGB CONC 28.4 g/dL (31-35); MEAN CORPUSCULAR VOLUME 84.4 fL (81-99); MONOCYTES # (AUTO) 0.3 (0.2-0.8); MONOCYTES % 4.7 % (4.4-11.3); NEUTROPHILS # (AUTO) 4.5 (2.1-6.9); PLATELET COUNT 154 x10e3/uL (140-360); RED BLOOD COUNT 3.92 x10e6/uL (3.6-5.1); RED CELL DISTRIBUTION WIDTH 22.3 % (11.7-14.4)
[2020-03-12] MEDS ORDERED: IPRATROPIUM BROMIDE 0.02% 2.5 ML NEB NEB ONE (03:30)
--- NOTE | 2020-03-12 03:40 | Diagnostic Imaging Report ---
EXAMINATION: CHEST SINGLE (PORTABLE) INDICATION: Short of breath, CHF COMPARISON: Chest x-ray 02/26/2020 FINDINGS: TUBES and LINES: None. LUNGS/PLEURA: Low lung volumes. Mild prominence of pulmonary interstitium and vessels. Partial obscuration of the hemidiaphragms. No pneumothorax. Bronchial cuffing. HEART AND MEDIASTINUM: Cardiac size is mildly enlarged. BONES AND SOFT TISSUES: No acute osseous lesion. Soft tissues are unremarkable. UPPER ABDOMEN: No free air under the diaphragm. IMPRESSION: Mild cardiomegaly and pulmonary vascular congestion. Suspect mild pulmonary interstitial edema and trace pleural effusions.. Signed by: Bradley Nascimento DO on 03/12/2020 3:37 AM
[2020-03-12] MEDS ORDERED: FUROSEMIDE INJ 10 MG/ML 4 ML VIAL IV ONE (03:45)
[2020-03-12 03:49] LABS: ALANINE AMINOTRANSFERASE 33 IU/L (0-55); ALBUMIN 3.1 g/dL (3.5-5.0); ALBUMIN/GLOBULIN RATIO 0.9 (0.8-2.0); ALKALINE PHOSPHATASE 131 IU/L (40-150); ANION GAP 14.2 mmol/L (8-16); BLOOD UREA NITROGEN 11 mg/dL (7-26); BUN/CREATININE RATIO 14 (6-25); CALCIUM 8.8 mg/dL (8.4-10.2); CARBON DIOXIDE 28 mmol/L (22-29); CHLORIDE 104 mmol/L (98-107); CREATINE KINASE 42 IU/L (29-168); CREATININE, SERUM 0.81 mg/dL (0.57-1.11); EST GLOMERULAR FILTRATION RATE > 60 ML/MIN (60-); GLUCOSE 101 mg/dL (74-118); POTASSIUM 4.2 mmol/L (3.5-5.1); SODIUM 142 mmol/L (136-145)
[2020-03-12 04:15] VITALS: BP 136/74
== END 2020-03-12 04:31 | disposition home or self-care (01) ==
LOC: ER 03:10
DX: J44.9 Chronic obstructive pulmonary disease, unspecified (principal); I50.9 Heart failure, unspecified; R06.02 Shortness of breath; B37.9 Candidiasis, unspecified; M79.89 Other specified soft tissue disorders; Z99.81 Dependence on supplemental oxygen; I10 Essential (primary) hypertension; E11.9 Type 2 diabetes mellitus without complications; K21.9 Gastro-esophageal reflux disease without esophagitis; F41.9 Anxiety disorder, unspecified
CPT/HCPCS: 36415; 71045; 80053; 82550; 82553; 83880; 84484; 85025; 93005; 94640; 99284; J1940

== ENCOUNTER 2020-03-27 00:56 | Inpatient (IN) | payer OTHER ==
[~2020-03-27] VITALS: Ht 160 cm; Wt 108.9 kg
[2020-03-27] MEDS ORDERED: MAGNESIUM SULF 1GRAM/DEXTROSE 100 ML IV STA (01:01)
--- NOTE | 2020-03-27 01:05 | Emergency Department Note ---
History of Present Illnes History of Present Illness Chief Complaint: COVID PUI History of Present Illness This is a 65 year old female brought by EMS for worsening SOB. PMH of COPD and CHF. Seen at bedside in [facility]. 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 Any updates have been documented here. Past Medical History Recent Fever: No Clinical Suspicion of Infectio: Yes New/Unexplained Change in Ment: No Past Medical History: Hypertension, Diabetes, COPD, CHF, Asthma, A-Fib, UTI's, Anemia, Anxiety, Depression, GERD, Hyperlipedemia, Chronic Back Pain Other Medical History: Home o2 at 4L, home cpap, neuropathy, restless leg, sleep apnea Past Surgical History: Appendectomy Other Surgery: Left foot Social History Smoking Cessation: Never Smoker Alcohol Use: None Any Illegal Drug Use: No Other Last Tetanus: UNK Review of Systems Review of Systems Constitutional: Reports no symptoms EENTM: Reports no symptoms Cardiovascular: Reports no symptoms Respiratory: Reports dyspnea Gastrointestinal: Reports no symptoms Genitourinary: Reports no symptoms Musculoskeletal: Reports no symptoms Integumentary: Reports no symptoms Neurological: Reports no symptoms Psychological: Reports no symptoms Endocrine: Reports no symptoms Hematological/Lymphatic: Reports no symptoms Physical Exam Related Data Allergies: Coded Allergies: metronidazole (Verified Allergy, Intermediate, RASH,ITCHING, 03/02/20) Penicillins (Verified Allergy, Unknown, rash, 01/10/19) Triage Vital Signs Vital Signs Date Time Temp Pulse Resp B/P (MAP) Pulse Ox O2 Delivery O2 Flow Rate FiO2 03/27/20 00:56 99.5 85 24 159/69 97 Nasal Cannula 4.0 Vital signs reviewed: Yes Physical Exam CONSTITUTIONAL Constitutional: Present morbidly obese HENT HENT: Present normocephalic, Present atraumatic, Present oropharynx clear/moist, Present nose normal HENT L/R: Present left ext ear normal, Present right ext ear normal EYES Eyes: Reports PERRL, Reports conjunctivae normal NECK Neck: Present ROM normal PULMONARY Pulmonary: Present other (increased WOB, decreased BS) CARDIOVASCULAR Cardiovascular: Present LLE edema, Present RLE edema GASTROINTESTINAL Abdominal: Present soft, Present nontender, Present bowel sounds normal GENITOURINARY Genitourinary: Present exam deferred SKIN Skin: Present warm, Present dry MUSCULOSKELETAL Musculoskeletal: Present ROM normal NEUROLOGICAL Neurological: Present alert, Present oriented x 3, Present no gross motor or sensory deficits PSYCHOLOGICAL Psychological: Present mood/affect normal, Present judgement normal Results Laboratory Lab results reviewed: Yes Laboratory comments Laboratory Tests Test 03/27/20 05:45 03/27/20 01:47 White Blood Count 5.55 x10e3/uL (4.8-10.8) Red Blood Count 3.46 x10e6/uL (3.6-5.1) Hemoglobin 8.6 g/dL (12.0-16.0) Hematocrit 29.9 % (34.2-44.1) Mean Corpuscular Volume 86.4 fL (81-99) Mean Corpuscular Hemoglobin 24.9 pg (28-32) Mean Corpuscular Hemoglobin Concent 28.8 g/dL (31-35) Red Cell Distribution Width 21.5 % (11.7-14.4) Platelet Count 164 x10e3/uL (140-360) Neutrophils (%) (Auto) 75.5 % (38.7-80.0) Lymphocytes (%) (Auto) 16.2 % (18.0-39.1) Monocytes (%) (Auto) 4.9 % (4.4-11.3) Eosinophils (%) (Auto) 2.0 % (0.0-6.0) Basophils (%) (Auto) 0.5 % (0.0-1.0) Neutrophils # (Auto) 4.2 (2.1-6.9) Lymphocytes # (Auto) 0.9 (1.0-3.2) Monocytes # (Auto) 0.3 (0.2-0.8) Eosinophils # (Auto) 0.1 (0.0-0.4) Basophils # (Auto) 0.0 (0.0-0.1) Absolute Immature Granulocyte (auto 0.05 x10e3/uL (0-0.1) Sodium Level 142 mmol/L (136-145) Potassium Level 4.2 mmol/L (3.5-5.1) Chloride Level 106 mmol/L (98-107) Carbon Dioxide Level 25 mmol/L (22-29) Anion Gap 15.2 mmol/L (8-16) Blood Urea Nitrogen 21 mg/dL (7-26) Creatinine 0.84 mg/dL (0.57-1.11) Estimat Glomerular Filtration Rate > 60 ML/MIN (60-) BUN/Creatinine Ratio 25 (6-25) Glucose Level 325 mg/dL (74-118) Calcium Level 8.5 mg/dL (8.4-10.2) Total Bilirubin 0.4 mg/dL (0.2-1.2) Aspartate Amino Transf (AST/SGOT) 26 IU/L (5-34) Alanine Aminotransferase (ALT/SGPT) 48 IU/L (0-55) Alkaline Phosphatase 118 IU/L (40-150) Creatine Kinase 23 IU/L (29-168) Creatine Kinase MB 0.80 ng/mL (0-5.0) Troponin I 0.003 ng/mL (0-0.300) B-Type Natriuretic Peptide 25.2 pg/mL (0-100) Total Protein 6.3 g/dL (6.5-8.1) Albumin 3.7 g/dL (3.5-5.0) Globulin 2.6 g/dL (2.3-3.5) Albumin/Globulin Ratio 1.4 (0.8-2.0) Imaging Imaging results reviewed: Yes Impressions [place] [address] Patient Name: KALYANI TALAVERA MR #: [id number] : 1955 Age/Sex: 65/F Req #: [id number] Adm Physician: Ordered by: RAFAELA MCADAMS DO Report #: [id number] Location: ER Room/Bed: Procedure: [id number] DX/CHEST SINGLE (PORTABLE) Exam Date: 03/27/20 Exam Time: 214 REPORT STATUS: Signed EXAMINATION: CHEST SINGLE (PORTABLE) INDICATION: ^sob ^[id number] ^[id number] COMPARISON: 02/23/2020 FINDINGS: AP view TUBES and LINES: None. LUNGS: Limited by body habitus and low lung volumes. Bilateral airspace opacities. PLEURA: No pneumothorax. Small left pleural effusion cannot be excluded. HEART AND MEDIASTINUM: The cardiomediastinal silhouette is enlarged, accentuated by technique and low lung volumes. BONES AND SOFT TISSUES: No acute osseous lesion. Soft tissues are unremarkable. UPPER ABDOMEN: No free air under the diaphragm. IMPRESSION: Bilateral lung airspace opacities, representing moderate pulmonary edema and/or pneumonia. Signed by: Dr. 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 Manager E [employer]: Interpreted by ED physician Date: Mar 27, 2020 Time: 01:24 Prior ECG tracings: reviewed Rhythm: sinus rhythm Rate: normal BPM: 83 QRS axis: normal ST segments normal: Yes T waves normal: Yes Clinical Impression: normal ECG Assessment & Plan Medical Decision Making MDM Diff Dx : sepsis, CHF, COPD, ACS, pna, covid-19 URI Assessment & Plan Final Impression: (1) COPD (chronic obstructive pulmonary disease) (2) Hyperglycemia Depart Disposition: ADMITTED Home Meds Reported Medications Tramadol HCl (Tramadol HCl) 100 Mg Tablet, 50 MG PO Q12H PRN for Mild Pain (1-3) or Fever>100.8 03/05/20 Ondansetron Hcl (ZOFRAN) 8 Mg Tablet, 4 MG PO Q12H PRN for NAUSEA 03/05/20 Ciprofloxacin Hcl (CIPRO) 500 Mg Tablet, 500 MG PO Q12H, #30 TAB 03/05/20 Insulin Lispro (HUMALOG) 100 Unit/1 Ml Insuln.pen, 30 UNITS SQ TIDWM 01/21/19 Insulin Glargine (LANTUS 3ML PEN) 100 Units/1 Ml Inj, 60 UNITS SQ HS 01/21/19 Glimepiride (GLIMEPIRIDE) 2 Mg Tablet, 2 MG PO DAILY 01/16/19 Losartan Potassium (LOSARTAN POTASSIUM) 50 Mg Tablet, 50 MG PO DAILY 01/16/19 Potassium Chloride (POTASSIUM CHLORIDE) 10 Meq Tablet.er, 10 MEQ PO DAILY 01/16/19 Spironolactone (SPIRONOLACTONE) 25 Mg Tablet, 25 MG PO DAILY, TAB 06/27/18 Sertraline Hcl (SERTRALINE HCL) 100 Mg Tablet, 100 MG PO DAILY, TAB 06/27/18 Ropinirole Hcl (ROPINIROLE HCL) 1 Mg Tablet, 2 MG PO QID, #30 TAB 12/24/17 Simvastatin (SIMVASTATIN) 40 Mg Tablet, 40 MG PO 2100, #30 TAB 09/28/17 Gabapentin (GABAPENTIN) 300 Mg Capsule, 300 MG PO Q6H, #120 CAP 09/28/17 Furosemide (FUROSEMIDE) 40 Mg Tablet, 40 MG PO BID, #60 TAB 09/28/17 Metoprolol Tartrate (METOPROLOL TARTRATE) 50 Mg Tablet, 50 MG PO BID, TAB 09/28/17 Omeprazole (OMEPRAZOLE) 40 Mg Capsule.dr, 40 MG PO DAILY 09/28/17 Aspirin (ASPIR 81) 81 Mg Tablet.dr, 81 MG PO DAILY 09/28/17 RAFAELA MCADAMS DO Mar 27, 2020 01:05
[2020-03-27] MEDS ORDERED: ALBUTEROL/IPRATROPIUM 3 ML NEB NEB ONE (01:15)
--- OUTSIDE RECORDS SUMMARY | 2020-03-27 01:35 | XMS REPORT | Continuity of Care Document ---
Author Author [facility] t Organization [facility] Address [address] [place]. [id number] Phone Unavailable Care Team Providers Care Contour Stitcher Name Role Phone LUCILLE OLIVO MD PCP Treasure JANE Attphys Unavailable LUCILLE OLIVO Attphys Unavailable RAFAELA MCADAMS Attphys Unavailable Elyse TOLBERT Attphys Unavailable EUNICE, S ELIESER Attphys Unavailable Astrid OLIVIA Attphys Unavailable SONAM, BENJAMIN Attphys Unavailable RETA P JEFFREY Attphys Unavailable Astrid BADILLO Attphys Unavailable BOCCARDO LUCILLE Admphys Unavailable Waldo JUAN Admphys Unavailable SONAM, BENJAMIN Admphys Unavailable PATEL ORTIZ Admphys Unavailable Payers Payer Name Policy Type Policy Number Effective Date Expiration Date Mary ramirezmalick [employer] [id number] 2013 00:00:00 [facility] [employer] [id number] 2013 00:00:00 [facility] Problems Condition Name Condition Details Condition Category Status Onset Date Resolution Date Last Treatment Date Treating Clinician Comments Source Uncontrolled type 2 diabetes mellitus Diabetes type 2, uncontrol led Problem Active [facility] Hyperglycemia Hyperglycemia Problem Active [facility] Pneumonia Pneumonia Problem Active [facility] Syncope Syncope Problem Active [facility] Chronic kidney disease CKD (chronic kidney disease) Problem Active [facility] Pre-syncope Syncope, near Problem Active [facility] Poorly controlled diabetes mellitus Poorly controlled diabetes m ellitus Problem Active [facility] Bradycardia with 41-50 beats per minute Bradycardia with 41- 50 beats per minute Problem Active [facility] Congestive heart failure CHF (congestive heart failure) Problem Active [facility] Chronic obstructive pulmonary disease COPD (chronic ob structive pulmonary disease) Problem Active [facility] Volume depletion Volume depletion Problem Active [facility] Allergies, Adverse Reactions, Alerts Allergy Name Allergy Type Status Severity Reaction(s) Onset Date Inacti ve Date Treating Clinician Comments Source Penicillins DA Active SV 2020-01-06 00:00:00 [facility] Penicillins DA Active SV 2019-12-12 00:00:00 [facility] Penicillins DA Active SV 2019-12-03 00:00:00 [facility] Penicillins DA Active SV 2019-11-20 00:00:00 [facility] Penicillins DA Active SV 2019-08-20 00:00:00 [facility] Penicillins DA Active SV 2019-08-06 00:00:00 [facility] Penicillins DA Active SV 2019-05-31 00:00:00 [facility] Penicillins DA Active SV 2019-05-17 00:00:00 [facility] Penicillin Allergy to Substance Active rash 2019-01-10 00:00:00 [facility] Penicillins DA Active SV 2017-11-15 00:00:00 [facility] Medications Ordered Medication Name Filled Medication Name Start Date Stop Da te Current Medication? Ordering Clinician Indication Dosage Frequency Signature (SIG) Comments Components Source Bacitracin/Polymyxin B Sulfate (Bacitrac in-Polymyxin Ointment) 28.35 Gm Oint...g. Bacitracin/Polymyxin B Sulfate (Bacitrac in-Polymyxin Ointment) 28.35 Gm Oint...g. 2019-04-23 00:00:00 Yes Elieser Dawson Md 2 Three Times A Day [facility] Betamethasone/Clotrimazole (Clotrimazole-Betamethasone Crm) 15 Gm Cr Betamethasone/Clotrimazole (Clotrimazole-Betamethasone Crm) 15 Gm Cr 2019-04-23 00:00:00 Yes Elieser Dawson Md 2 Three Times A Day [facility] Chlorhexidine Gluconate (Hibiclens) 120 Ml Liqd Chlorh exidine Gluconate (Hibiclens) 120 Ml Liqd 2019-04-23 00:00:00 Yes Elieser Dawson Md 5 Three Times A Day [facility] Aspirin (Aspir 81) 81 Mg Tablet. Aspirin (Aspir 81) 81 Mg Tablet. Yes 81 Daily [facility] Furosemide 40 Mg Tablet Furosemide 40 Mg Tablet Yes 40 Twice A Day [facility] Gabapentin 300 Mg Capsule Gabapentin 300 Mg Capsule Yes 300 Every 6 Hours [facility] Glimepiride 2 Mg Tablet Glimepiride 2 Mg Tablet Yes 2 Daily [facility] Insulin Glargine (Lantus 3ML Pen) 100 Units/1 Ml Inj I nsulin Glargine (Lantus 3ML Pen) 100 Units/1 Ml Inj Yes 60 Bedtime [facility] Insulin Lispro (Humalog) 100 Unit/1 Ml Insuln.pen Insu mateus Lispro (Humalog) 100 Unit/1 Ml Insuln.pen Yes 30 Three Times Daily With Meals [facility] Losartan Potassium 50 Mg Tablet Losartan Potassium 50 Mg Tablet Yes 50 Daily [facility] Metoprolol Tartrate 50 Mg Tablet Metoprolol Tartrate 50 Mg Tablet Yes 50 Twice A Day [facility] Omeprazole 40 Mg Capsule.dr Omeprazole 40 Mg Capsule. Yes 40 Daily [facility] Potassium Chloride 10 Meq Tablet.er Potassium Chloride 10 Meq Tablet. er Yes 10 Daily [facility] Ropinirole Hcl 1 Mg Tablet Ropinirole Hcl 1 Mg Tablet Yes 2 Four Times Daily [facility] Sertraline Hcl 100 Mg Tablet Sertraline Hcl 100 Mg Tablet Y es 100 Daily [facility] Simvastatin 40 Mg Tablet Simvastatin 40 Mg Tablet Yes 40 Today At 9:00PM [facility] Spironolactone 25 Mg Tablet Spironolactone 25 Mg Tablet Yes 25 Daily [facility] Insulin Human Regular (Humulin R U-500*) 500 Unit/1 Ml Inj, 50 Subcutaneously Insulin Human Regular (Humulin R U-500*) 500 Unit/1 Ml Inj, 50 Subcutaneously 2019-01-21 00:00:00 No 50 Three Times A Day [facility] Albuterol Sulfate (Proair Hfa Inhaler*) 8.5 Gm Inh, 2 Inh Albuterol Sulfate (Proair Hfa Inhaler*) 8.5 Gm Inh, 2 Inh 2019-01-16 00:00:00 No 2 Four Times Daily as needed for Shortness Of Breath [facility] Fenofibrate Nanocrystallized (Fenofibrate) 145 Mg Tabl et, 145 Mg Oral Fenofibrate Nanocrystallized (Fenofibrate) 145 Mg Tablet, 145 Mg Oral 2019-01-16 00:00:00 No 145 Daily [facility] Sildenafil Citrate (Revatio) 20 Mg Tab, 20 Mg Oral Calista denafil Citrate (Revatio) 20 Mg Tab, 20 Mg Oral 2019-01-16 00:00:00 No 20 Th ree Times A Day [facility] Solifenacin Succinate (Vesicare) 5 Mg Tablet, 10 Mg Or al Solifenacin Succinate (Vesicare) 5 Mg Tablet, 10 Mg Oral 2019-01-16 00:00:00 No 10 Bedtime [facility] Benzonatate (Tessalon Perle) 100 Mg Capsule, 100 Mg Or al Benzonatate (Tessalon Perle) 100 Mg Capsule, 100 Mg Oral 2019-01-13 00:00:00 No 100 Every 12 Hours [facility] Glimepiride 2 Mg Tablet, 4 Mg Oral Glimepiride 2 Mg Tablet, 4 Mg Oral 2019-01-13 00:00:00 No 4 Twice A Day [facility] Furosemide (Lasix) 40 Mg Tablet, 40 Mg Oral Furosemide (Lasix) 40 Mg Tablet, 40 Mg Oral 2018-07-03 00:00:00 No 40 Twice A Day [facility] Paroxetine Hcl 20 Mg Tablet, 40 Mg Oral Paroxetine Hcl 20 Mg Tablet, 40 Mg Oral 2018-06-27 00:00:00 No 40 Daily [facility] Tramadol Hcl (Ultram 50MG*) 50 Mg Tab, 50 Mg Oral Tram adol Hcl (Ultram 50MG*) 50 Mg Tab, 50 Mg Oral 2018-06-27 00:00:00 No 50 Every 12 Hours [facility] Insulin Regular, Human (Humulin R) 100 Unit/1 Ml Vial, 20 Units Subcutaneously Insulin Regular, Human (Humulin R) 100 Unit/1 Ml Vial, 20 Units Subcutaneously 2017-12-28 00:00:00 No 20 Twice A Day [facility] Insulin Detemir (Levemir) 100 Unit/1 Ml Vial, Insulin Detemir (Levemir) 100 Unit/1 Ml Vial, 2017-10-31 00:00:00 [facility] Insulin Aspart (Novolog Mix 70-30 Vial) 100 Units/Ml M l, Insulin Aspart (Novolog Mix 70-30 Vial) 100 Units/Ml Ml, 2017-10-11 00:00:00 [facility] Metformin Hcl (Glucophage) 500 Mg Tablet, Metformin Hc l (Glucophage) 500 Mg Tablet, 2017-09-28 00:00:00 [facility] Metoprolol Succinate (Toprol Xl) 50 Mg Tab.er.24h, 50 Oral Metoprolol Succinate (Toprol Xl) 50 Mg Tab.er.24h, 50 Oral 2017-09-28 00:00:00 No 50 Twice A Day for Elevated Blood Pressure [facility] Procedures Procedure Date / Time Performed Performing Clinician [facility] e X-ray of chest, two views 2019-01-10 00:00:00 BOYD NICHOLS [facility] Computed tomography of brain without radiopaque contrast 201 03-04-19 00:00:00 EUNICEELIESER NOLAN S [facility] Computed tomography of cervical spine without contrast 07-11 00:00:00 EUNICE ELIESER S [facility] CT maxillofacial area wo contrast 2018-07-11 00:00:00 JEAN DAWSON [facility] X-ray of chest, single view 2018-07-01 00:00:00 BENJAMIN MASTERS [facility] X-ray of chest, two views 2018-06-27 00:00:00 TINA JANE [facility] Encounters Start Date/Time End Date/Time Encounter Type Admission Type [facility] Care Department Encounter ID Source 2019-04-27 02:46:00 2019-04-27 04:46:00 Departed Emergency Room 1 JACQUES JANE [facility] [id number] [facility] 2019-04-23 20:19:00 2019-04-23 20:58:00 Departed Emergency Room [facility] [id number] [facility] 2019-04-17 20:48:00 2019-04-17 21:35:00 Departed Emergency Room [facility] [id number] [facility] 2019-03-15 01:19:00 2019-03-15 03:30:00 Departed Emergency Room 1 JACQUES JANE [facility] [id number] [facility] 2019-02-23 23:49:00 2019-02-24 05:38:00 Departed Emergency Room 1 JACQUES JANE [facility] [id number] [facility] 2019-01-18 14:54:00 2019-01-21 16:15:00 Discharged Inpatient 1 JACQUES JANE [facility] [id number] [facility] 2019-01-11 19:31:00 2019-01-13 15:36:00 Discharged Inpatient (obs) 1 FLO TOLBERT [facility] [id number] [facility] 2019-01-10 15:21:00 2019-01-10 19:19:00 Departed Emergency Room 1 [facility] [id number] [facility] 2018-07-30 16:40:00 2018-07-31 01:45:00 Departed Emergency Room 1 [facility] [id number] [facility] 2018-07-11 10:03:00 2018-07-11 14:40:00 Departed Emergency Room 1 ELIESER DAWSON [facility] [id number] [facility] 2018-07-01 09:28:00 2018-07-03 14:06:00 Discharged Inpatient 1 LUCILLE OLIVO [facility] [id number] [facility] 2018-05-30 19:52:00 2018-05-30 20:30:00 Departed Emergency Room [facility] [id number] [facility] 2018-04-03 01:16:00 2018-04-03 04:19:00 Departed Emergency Room 1 ROBERT OLIVIA [facility] [id number] [facility] 2018-02-04 11:46:00 2018-02-07 13:55:00 Discharged Inpatient (obs) 1 ROBERT OLIVIA [facility] [id number] [facility] 2018-01-31 22:01:00 2018-02-01 02:14:00 Departed Emergency Room 1 [facility] [id number] [facility] 2017-12-24 00:08:00 2017-12-28 16:18:00 Discharged Inpatient (obs) 1 BENJAMIN MASTERS [facility] [id number] [facility] 2017-10-31 01:50:00 2017-10-31 03:18:00 Departed Emergency Room ER JACQUES JANE [facility] [id number] [facility] 2017-10-25 22:28:00 2017-10-26 00:09:00 Departed Emergency Room [facility] [id number] [facility] 2017-10-11 23:19:00 2017-10-12 04:45:00 Departed Emergency Room ER FLO TOLBERT [facility] [id number] [facility] 2017-10-11 07:38:00 2017-10-11 10:17:00 Departed Emergency Room ER JEFFREY MCDUFFIE [facility] [id number] [facility] 2017-09-25 14:18:00 2017-09-29 13:30:00 Discharged Inpatient ER JAYASHREE BADILLO [facility] [id number] [facility] 2017-08-24 13:00:00 2017-08-26 16:20:00 Discharged Inpatient (obs) ER FLO TOLBERT [facility] [id number] [facility] 2017-04-17 23:09:00 2017-04-18 03:16:00 Departed Emergency Room [facility] [id number] [facility] 2017-02-09 21:43:00 2017-02-10 02:38:00 Departed Emergency Room [facility] [id number] [facility] 2016-12-29 19:19:00 2016-12-30 01:00:00 Departed Emergency Room [facility] [id number] [facility] Results Test Description Test Time Test Comments Results Result Comments Source CHEST SINGLE (PORTABLE) 2020-03-12 03:34:00 [place] [address] Patient Name: KALYANI TALAVERA MR #: [id number] : 1955 Age/Sex: 65/F Req #: [id number] Adm Physician: Ordered by: JACQUES JANE MD Report #: [id number] Location: ER Room/Bed: Procedure: [id number] DX/CHEST SINGLE (PORTABLE) Exam Date: 03/12/20 Exam Time: 309 REPORT STATUS: Signed EXAMINATION: CHEST SINGLE (PORTABLE) INDICATION: Short of breath, CHF COMPARISON: Chest x-ray 02/26/2020 FINDINGS: TUBES and LINES: None. LUNGS/PLEURA: Low lung volumes. Mild prominence of pulmonary interstitium and vessels. Partial obscuration of the hemidiaphragms. No pneumothorax. Bronchial cuffing. HEART AND MEDIASTINUM: Cardiac size is mildly enlarged. BONES AND SOFT TISSUES: No acute osseous lesion. Soft tissues are unremarkable. UPPER ABDOMEN: No free air under the diaphragm. IMPRESSION: Mild cardiomegaly and pulmonary vascular congestion. Suspect mild pulmonary interstitial edema and trace pleural effusions.. Signed by: Bradley Harvey DO on 03/12/2020 3:37 AM Dictated By: BRADLEY HARVEY DO 6 Transcribed By: JIM on 03/12/20336 COPY TO: JACQUES JANE MD CHEST XRAY LINE PLACEMENT 2020-02-26 21:45:00 [place] [address] Patient Name: KALYANI TALAVERA MR #: [id number] : 1955 Age/Sex: 64/F Req #: [id number] Adm Physician: LUCILLE OLIVO MD Ordered by: FLO TOLBERT MD Report #: [id number] Location: MED/SURG Room/Bed: 107- Procedure: [id number] DX/CHEST XRAY LINE PLACEMENT Exam Date: 02/26/20 [...] COPY TO: FLO TOLBERT MD CT ABDOMEN/PELVIS 2020-02-26 16:53:00 [place] [address] Patient Name: KALYANI TALAVERA MR #: [id number] : 1955 Age/Sex: 64/F Req #: [id number] Adm Physician: Ordered by: FLO TOLBERT MD Report #: [id number] Location: ER Room/Bed: Procedure: [id number] CT/CT ABDOMEN/PELVIS WO Exam Date: 02/26/20 Exam [...] TOLBERT MD CHEST SINGLE (PORTABLE) 2020-02-26 14:35:00 [place] [address] Patient Name: KALYANI TALAVERA MR #: [id number] : 1955 Age/Sex: 64/F Req #: [id number] Adm Physician: Ordered by: FLO TOLBERT MD Report #: [id number] Location: ER Room/Bed: Procedure: [id number] DX/CHEST SINGLE (PORTABLE) Exam Date: 02/26/20 Exam [...] WYNNE MD 35 Transcribed By: JIM on 02/26/20 143 COPY TO: FLO TOLBERT MD CHEST SINGLE (PORTABLE) 2020-02-08 06:52:00 [place] [id number] Patient Name: KALYANI TALAVERA MR #: [id number] : 1955 Age/Sex: 64/F Req #: [id number] Adm Physician: Ordered by: JACQUES JANE MD Report #: [id number] Location: ER Room/Bed: Procedure: [id number] DX/CHEST SINGLE (PORTABLE) Exam Date: 02/08/20 Exam [...] By: JIM on 02/08/20652 COPY TO: JACQUES JNAE MD CT CHEST W 2020-02-05 06:23:00 [place] [address] Patient Name: KALYANI TALAVERA MR #: [id number] : 1955 Age/Sex: 64/F Req #: [id number] Adm Physician: Ordered by: RAFAELA MCADAMS DO Report #: [id number] Location: ER Room/Bed: Procedure: [id number] CT/CT CHEST W Exam Date: 02/05/20 Exam [...] MCADAMS DO CT ABDOMEN/PELVIS W 2020-02-05 06:23:00 [place] [address] Patient Name: KALYANI TALAVERA MR #: [id number] : 1955 Age/Sex: 64/F Req #: [id number] Adm Physician: Ordered by: RAFAELA MCADAMS DO Report #: [id number] Location: ER Room/Bed: Procedure: [id number] CT/CT ABDOMEN/PELVIS W Exam Date: 02/05/20 Exam Time: 05 REPORT STATUS: Signed ADDENDUM #1 Addendum: GI [...] 6:39 AM Dictated By: YASH JOSEPH MD 3 Transcribed By: JIM on 02/05/2039 COPY TO: RAFAELA MCADAMS DO GLUBED 2020-01-28 15:32:00 Test Item GLUBED (test code = GLUBED) 386 mg/dL 74-106 H Performed by certified ripper operator at [facility] [id number] 11:50:00* Test Item Value Reference Range Interpretation Comments GLUBED (test code = GLUBED) 247 mg/dL 74-106 H Performed by certified ripper operator at [facility] [id number] 08:17:00* Test Item Value Reference Range Interpretation Comments GLUBED (test code = GLUBED) 226 mg/dL 74-106 H Performed by certified ripper operator at [facility] BASIC METABOLIC [id number] 06:17:00* Test Item Value Reference Range Interpretation [...] CA) 8.8 mg/dL 8.5-10.1 N BASIC METABOLIC [id number] 05:54:00* Test Item Value Reference Range Interpretation [...] CALCIUM (test code = CA) mg/dL 8.5-10.1 [id number] 20:08:00* Test Item Value Reference Range Interpretation Comments GLUBED (test code = GLUBED) 161 mg/dL 74-106 H Performed by certified ripper operator at [facility] [id number] 16:30:00* Test Item Value Reference Range Interpretation Comments GLUBED (test code = GLUBED) 120 mg/dL 74-106 H Performed by certified ripper operator at [facility] [id number] 11:27:00* Test Item Value Reference Range Interpretation Comments GLUBED (test code = GLUBED) 164 mg/dL 74-106 H Performed by certified ripper operator at [facility] - XR CHEST 1 [id number] 09:27:00 FAX: Jasen Frias MD [phone] [place]: [address] St: ADM FAX: Rigo Mccormick MD [phone] FAX: Benjamin Francis MD [phone] Name: KALYANI TALAVERA [facility] : 1955 Age/S: 64/F [address] [facility] Unit #: [id number] Loc: V.40[address] [place] [address] Phys: Rigo Alexander MD Acct: [id number] Dis Date: Status: ADM IN [facility] #: [phone] Exam Date: 01/27/2020 1040 FAX #: [phone] Reason: chf EXAMS: CPT CODE: [id number] XR CHEST 1 V 09584 HISTORY: CHF. COMPARISON: January 24, 2020. Location: [facility]. Suboptimal inspiration. Crowding of bronchovascular markings. Dependent [...] RT(R); Donna Childers RT(R) Trnscrd Date/Time/By: 01/27/2020 (0994) : By: aniyah [email or web address] Orig Print D/T: S: 01/27/2020 (1047) P AGE 2 Signed Report GLUBED 2020-01-27 07:58:00* Test Item Value Reference Range Interpretation Comments GLUBED (test code = GLUBED) 127 mg/dL 74-106 H Performed by certified ripper operator at [facility] [id number] 07:40:00* Test Item Value Reference Range Interpretation Comments GLUBED (test code = GLUBED) 116 mg/dL 74-106 H Performed by certified ripper operator at [facility] [id number] 22:23:00* Test Item Value Reference Range Interpretation Comments GLUBED (test code = GLUBED) 259 mg/dL 74-106 H Performed by certified ripper operator at [facility] [id number] 17:10:00* Test Item Value Reference Range Interpretation Comments GLUBED (test code = GLUBED) 219 mg/dL 74-106 H Performed by certified ripper operator at [facility] [id number] 11:45:00* Test Item Value Reference Range Interpretation Comments GLUBED (test code = GLUBED) 265 mg/dL 74-106 H Performed by certified ripper operator at [facility] [id number] 08:52:00* Test Item Value Reference Range Interpretation Comments GLUBED (test code = GLUBED) 317 mg/dL 74-106 H Performed by certified ripper operator at [facility] [id number] 23:49:00* Test Item Value Reference Range Interpretation Comments GLUBED (test code = GLUBED) 327 mg/dL 74-106 H Performed by certified ripper operator at [facility] [id number] 22:15:00* Test Item Value Reference Range Interpretation Comments GLUBED (test code = GLUBED) 339 mg/dL 74-106 H Performed by certified ripper operator at [facility] [id number] 19:59:00* Test Item Value Reference Range Interpretation Comments GLUBED (test code = GLUBED) 497 mg/dL 74-106 H Performed by certified ripper operator at [facility] [id number] 18:29:00* Test Item Value Reference Range Interpretation Comments GLUBED (test code = GLUBED) > 500 mg/dL 74-106 HH [facility]~ [id number] 16:00:00* Test Item Value Reference Range Interpretation Comments GLUBED (test code = GLUBED) 377 mg/dL 74-106 H Performed by certified ripper operator at [facility] [id number] 12:09:00* Test Item Value Reference Range Interpretation Comments GLUBED (test code = GLUBED) 441 mg/dL 74-106 H [facility] certified ripper [facility]~ BASIC METABOLIC [id number] 08:19:00* Test Item Value Reference Range Interpretation [...] CA) 8.7 mg/dL 8.5-10.1 N BASIC METABOLIC [id number] 08:11:00* Test Item Value Reference Range Interpretation [...] CALCIUM (test code = CA) mg/dL 8.5-10.1 [id number] 08:00:00* Test Item Value Reference Range Interpretation Comments GLUBED (test code = GLUBED) 493 mg/dL 74-106 H [facility] [id number] 02:13:00* Test Item Value Reference Range Interpretation Comments GLUBED (test code = GLUBED) > 500 mg/dL 74-106 HH [facility] certified ripper [facility]~ [id number] 02:13:00* Test Item Value Reference Range Interpretation Comments GLUBED (test code = GLUBED) > 500 mg/dL 74-106 HH Per[facility] certified ripper [facility] [id number] 21:24:00* Test Item Value Reference Range Interpretation Comments GLUBED (test code = GLUBED) 497 mg/dL 74-106 H Performed by certified ripper operator at [facility] [id number] 21:24:00* Test Item Value Reference Range Interpretation Comments GLUBED (test code = GLUBED) > 500 mg/dL 74-106 HH [facility] certified ripper [facility] BASIC METABOLIC [id number] 17:04:00* Test Item Value Reference Range Interpretation [...] CA) 8.6 mg/dL 8.5-10.1 N BASIC METABOLIC [id number] 16:49:00* Test Item Value Reference Range Interpretation [...] CALCIUM (test code = CA) mg/dL 8.5-10.1 [id number] 12:24:00* Test Item Value Reference Range Interpretation Comments GLUBED (test code = GLUBED) 344 mg/dL 74-106 H Performed by certified ripper operator at [facility] CBC W/AUTO [id number] 08:32:00* Test Item Value Reference Range Interpretation [...] = MDIFF) NO, ONLY SCAN NEEDED DIFFERENTIAL [id number] 08:32:00* Test Item Value Reference Range Interpretation Comments STAIN ACCEPTABILITY (test code = STN ACCEPTABLE) STAIN ACCEPTABLE POLYCHROMASIA (test code = POLC) 1+ HYPOCHROMIA (test code = HYPO) 1+ POIKILOCYTOSIS (test code = POIK) 1+ ANISOCYTOSIS (test code = ANISO) 1+ PLATELET ESTIMATE (test code = PLTEST) ADEQUATE PLATELET MORPHOLOGY (test code = PLTMORPH) NORMAL URINALYSIS [id number] 07:09:00* Test Item Value Reference Range Interpretation [...] per HPF FEW Urine Source? Clean CatchURINALYSIS [id number] 07:05:00* Test Item Value Reference Range Interpretation [...] HPF NONE Urine Source? Clean CatchB-TYPE NATRIURETIC [id number] 06:41:00* Test Item Value Reference Range Interpretation Comments B-TYPE NATRIURETIC PEPTIDE (test code = BNP) 14.6 pgram/mL 0-100 N CBC W/AUTO [id number] 05:36:00* Test Item Value Reference Range Interpretation [...] = MDIFF) NO, ONLY SCAN NEEDED DIFFERENTIAL [id number] 05:36:00* Test Item Value Reference Range Interpretation Comments STAIN ACCEPTABILITY (test code = STN ACCEPTABLE) MORPHOLOGY COMMENT (test code = MOC) PLATELET ESTIMATE (test code = PLTEST) PLATELET MORPHOLOGY (test code = PLTMORPH) CBC W/AUTO [id number] 05:35:00* Test Item Value Reference Range Interpretation [...] = MDIFF) NO, ONLY SCAN NEEDED DIFFERENTIAL [id number] 05:35:00* Test Item Value Reference Range Interpretation Comments STAIN ACCEPTABILITY (test code = STN ACCEPTABLE) CABOT RINGS (test code = CAB) MORPHOLOGY COMMENT (test code = MOC) PLATELET ESTIMATE (test code = PLTEST) PLATELET MORPHOLOGY (test code = PLTMORPH) CBC W/AUTO [id number] 05:35:00* Test Item Value Reference Range Interpretation [...] = MDIFF) NO, ONLY SCAN NEEDED DIFFERENTIAL [id number] 05:35:00* Test Item Value Reference Range Interpretation Comments STAIN ACCEPTABILITY (test code = STN ACCEPTABLE) MORPHOLOGY COMMENT (test code = MOC) PLATELET ESTIMATE (test code = PLTEST) PLATELET MORPHOLOGY (test code = PLTMORPH) CBC W/AUTO [id number] 05:35:00* Test Item Value Reference Range Interpretation [...] = MDIFF) NO, ONLY SCAN NEEDED DIFFERENTIAL [id number] 05:35:00* Test Item Value Reference Range Interpretation Comments STAIN ACCEPTABILITY (test code = STN ACCEPTABLE) CABOT RINGS (test code = CAB) MORPHOLOGY COMMENT (test code = MOC) PLATELET ESTIMATE (test code = PLTEST) PLATELET MORPHOLOGY (test code = PLTMORPH) BASIC METABOLIC [id number] 05:31:00* Test Item Value Reference Range Interpretation [...] CA) 8.5 mg/dL 8.5-10.1 N HEPATIC FUNCTION [id number] 05:31:00* Test Item Value Reference Range Interpretation [...] reference range due to change in reagent. [id number] 05:31:00* Test Item Value Reference Range Interpretation Comments MAGNESIUM (test code = MAG) 2.1 mg/dL 1.8-2.4 N [id number] 05:31:00* Test Item Value Reference Range Interpretation Comments TROPONIN-I (test code = TROPI) <0.015 ng/mL 0-0.045 N COVID 19 INHOUSE [id number] 04:50:00* Test Item Value Reference Range Interpretation Comments COVID 19 INHOUSE AG (test code = [id number]) NEGATIVE Is patient requiring admission or transfer? YIndication for rapid COVID-19 testi ng: Mod Clinical Suspicion- XR CHEST 1 V 2020-01-24 04:35:00 FAX: Benjamin Francis MD [phone] [place]: St: REG FAX: Anastacio Burgess MD Name: KALYANI TALAVERA [facility] : 1955 Age/S: 64/F [address] Unit #: [id number] Loc: [place], [place] [address] Phys: Anastacio Burgess MD Acct: [id number] Dis Date: Status: REG ER PHONE #: [phone] Exam Date: 01/24/2020424 FAX #: [phone] Reason: SHORTNESS OF BREATH EXAMS: CPT CODE: [id number] XR CHEST 1 V 36655 EXAM: - XR CHEST 1 V HISTORY: [...] Masters; Anastacio Burgess MD Technologist: JACINDA LYONS POWER HAMMER OPERATOR Trnscrd Da te/Time/By: 01/24/2020 (0435) : By: [email or web address] Orig Print D/T: S: 01/23 (0438) PAGE 1 Signed Report [id number] 12:58:00* Test Item Value Reference Range Interpretation Comments GLUBED (test code = GLUBED) 54 mg/dL 74-106 L Performed by certified ripper operator at [facility] BASIC METABOLIC [id number] 09:17:00* Test Item Value Reference Range Interpretation [...] CA) 8.8 mg/dL 8.5-10.1 N BASIC METABOLIC [id number] 09:06:00* Test Item Value Reference Range Interpretation [...] CALCIUM (test code = CA) mg/dL 8.5-10.1 [id number] 08:29:00* Test Item Value Reference Range Interpretation Comments GLUBED (test code = GLUBED) 160 mg/dL 74-106 H Performed by certified ripper operator at [facility] [id number] 20:47:00* Test Item Value Reference Range Interpretation Comments GLUBED (test code = GLUBED) 210 mg/dL 74-106 H Performed by certified ripper operator at [facility] [id number] 18:37:00* Test Item Value Reference Range Interpretation Comments GLUBED (test code = GLUBED) 91 mg/dL 74-106 N Performed by certified ripper operator at [facility] BASIC METABOLIC [id number] 17:55:00* Test Item Value Reference Range Interpretation [...] CA) 8.5 mg/dL 8.5-10.1 N BASIC METABOLIC [id number] 17:50:00* Test Item Value Reference Range Interpretation [...] CA) mg/dL 8.5-10.1 - XR CHEST 1 [id number] 17:38:00 FAX: Benjamin Francis MD [phone] [place]: [address]: ADM [facility]: [facility] [birth year] Age/S: 64/F [address] Unit #: [id number] Loc: V.3042 [place] [address] Phys: Benjamin Masters MD Acct: [id number] Dis Date: Status: ADM IN PHONE #: [phone] Exam Date: 01/13/2020 1531 FAX #: [phone] Reason: CHF EXAMS: CPT CODE: [id number] XR CHEST 1 V 02791 EXAM: Chest x-ray, one view; INFORMATION: Shortness of breath, CHF; IMPRESSION: Moderate improvement compared with the recent study from January 11, 2020: The heart is decreased in size; mild cardiomegaly remains. Lung bases are better demarcated indicating resolution of interstitial edema; mild left heart failure remains. Location code: [facility] at 173 Reported and signed by: Jc Bravo M.D. CC: Benjamin Masters Technologist: RT Karlene(Megan) Trnscrd Date/Time/By: 01/13/2020 (1737) : By: LeanneGRW Orig Print D/T: S: 01/13/2020 (8114) PAGE 1 Signed Report [id number] 17:22:00* Test Item Value Reference Range Interpretation Comments GLUBED (test code = GLUBED) 84 mg/dL 74-106 N Performed by certified ripper operator at [facility] [id number] 16:46:00* Test Item Value Reference Range Interpretation Comments GLUBED (test code = GLUBED) 65 mg/dL 74-106 L Performed by certified ripper operator at [facility] BRONCH LAVAGE FLD CELL [id number] 15:32:00* Test Item Value Reference Range Interpretation [...] [id number] Carlyle Markham BRONCHIAL [id number] 14:21:00 RUN DATE: 01/13/20 [facility] - Lab PAGE 1 RUN TIME: 1421 Specimen Inqui ry RUN USER: INTERFACE PATIENT: KALYANI TALAVERA ACCT #: [id number] LOC: [place] U #: [id number] AGE/SX: 64/F ROOM: [facility] RE01/07/20REG DR: Benjamin Masters MD : 57 BED: A DIS: STATUS: ADM IN TLOC: SPEC #: [id number] RECD: 01/10/20 STATUS: SOUT REQ #: [id number] MARILEE: 01/10/20- SUBM DR: Benjamin Masters MD ENTERED: 01/10/20 SP TYPE: BRONCH WA OTHR DR: Ivett Valderrama i, MD, Kuldip Kumar MD Nassif, George M MDORDERED: GROSS COPIES TO: Ivett Christianson MD [address] [place] [address] Harry Gutierrez MD [phone] Rigo Alexander MD [address] [facility] [address] [place] [phone] Benjamin Murphy MD [address] [place] [address] PROCED URES: GROSS (01/13/20-1308) TISSUES: BRONCH LAVAGE - 60ML CLOUDY FLUID CLINICAL HISTORY COLLECTION DATE: 01/10/20 INTERSTITIAL LUNG DI SEASE FINAL DIAGNOSIS Left lingular bronchoalveolar lavage for cytol ogy and CD4/CD8 ratio: PULMONARY MACROPHAGES, NEUTROPHILS, AND A FEW COLU MNAR BRONCHIAL LINING CELLS NEGATIVE FOR MALIGNANCY CD4- CD8 RATIO 1.0: 1 (SEE INCLUDED ADX FLOW CYTOMETRY REPORT [id number]) CONTINUED ON NEXT PAGE RUN DATE: 01/13/20 [facility] - Lab PAGE 2 RUN TIME: 1421 Specimen Inquiry RUN USER: INTERFACE -- SPEC #: [id number] PATIENT: KALYANI TALAVERA #[id number] (Continued) FINAL DIAGNOSIS (Continued) Krishna Simpson [address], [address] FLOW CYTOMETRY A Flow cytometry repo rt is received from [employer] Case No:[id number] the int erpretation is as follows: Clinical [...] developed and its performance characteristics determined by [employer]. It has not been cleared or approved by the U.S. Food and Drug Administrat ion.The FDA has determined that such clearance is not necessary. This test is us ed for clinicalpurposes. It should not be regarded as investigational or for res earch. This laboratory iscertified under the Clinical Laboratory Improvement [place] ndments of 1987 (CLIA-88) as CONTINUED ON NEXT PAGE RUN DATE: 01/13/20 [facility] Lab PAGE 3 RUN TIME: 1421 Speci men Inquiry RUN USER: INTERFACE SPEC #: [id number] PATIENT: KALYANI MOSES #[id number] (Continued) FLOW CYTOMETRY (Continued) qualified to perform high complexity clinical te sting. The above report was reviewed and interpretive comments are provided. The comments areapproved for the medical records of the identified patient with my electronic signature. Electronic SignatureLachelle Iyer, Finishing Supervisor [facility] C ode(s): [id number](x21),[phone] ICD Code(s): R89.7 The Technical and Professional components were performed at [facility], [address] [place] [address], [facility] [address], [place] [address] . MACROSCOPIC The specimen is designated as "left lingula BAL". It consists of 60 mL of cloudy fluid for processing and evaluation. Material will be submitted for CD4 CD8 ratio test. A cell block is prepared. GROSS PERFORMED AT [facility] [address] [facility] [place] [address] [phone] MICROSCOPIC All of the stains, including any controls pe rformed, stain appropriately. MICROSCOPIC PERFORMED AT [facility] [address] [place] [address] [phone] PERFORMING SITE Diagnosis performed at: [facility] [address] [place] [address] CONTINUED ON NEXT PAGE RUN DATE: 01/13/20 [facility] - Lab PAGE 4 RUN TIME: 1421 Specimen Inquiry RUN USER: I JOSH S PEC #: [id number] PATIENT: KALYANI TALAVERA GEO #[id number] (Continued) Signed SIGNATURE ON FILE Petty Lowe MD 01/13/20 1421 END OF REPORT GLUBED 2020-01-13 12:45:00* Test Item Value Reference Range Interpretation Comments GLUBED (test code = GLUBED) 105 mg/dL 74-106 N Performed by certified ripper operator at [facility] [id number] 08:07:00* Test Item Value Reference Range Interpretation Comments GLUBED (test code = GLUBED) 92 mg/dL 74-106 N Performed by certified ripper operator at [facility] [id number] 19:54:00* Test Item Value Reference Range Interpretation Comments GLUBED (test code = GLUBED) 149 mg/dL 74-106 H Performed by certified ripper operator at [facility] [id number] 17:05:00* Test Item Value Reference Range Interpretation Comments GLUBED (test code = GLUBED) 127 mg/dL 74-106 H Performed by certified ripper operator at [facility] [id number] 12:02:00* Test Item Value Reference Range Interpretation Comments GLUBED (test code = GLUBED) 209 mg/dL 74-106 H Performed by certified ripper operator at [facility] [id number] 08:45:00* Test Item Value Reference Range Interpretation Comments GLUBED (test code = GLUBED) 175 mg/dL 74-106 H Performed by certified ripper operator at [facility] B-TYPE NATRIURETIC [id number] 07:19:00* Test Item Value Reference Range Interpretation Comments B-TYPE NATRIURETIC PEPTIDE (test code = BNP) 28.74 pgram/mL 0-100 N COMPREHENSIVE METABOLIC [id number] 07:07:00* Test Item Value Reference Range Interpretation [...] due to change in reagent. COMPREHENSIVE METABOLIC [id number] 06:56:00* Test Item Value Reference Range Interpretation [...] code = ALKP) IUnit/L 45-117 CBC W/AUTO [id number] 06:51:00* Test Item Value Reference Range Interpretation [...] code = NRBC#) 0.00 K/mm3 0.0-0.1 N [id number] 20:46:00* Test Item Value Reference Range Interpretation Comments GLUBED (test code = GLUBED) 257 mg/dL 74-106 H Performed by certified ripper operator at [facility] - XR CHEST 1 [id number] 18:25:00 FAX: Alfa Moscoso MD [phone] [place]: [address] St: ADM FAX: Benjamin Francis MD [phone] Name: KALYANI TALAVERA [facility] : 1955 Age/S: 64/F [address] Unit #: [id number] Loc: V.3042 [place] [address] Phys: Alfa Cassidy MD Acct: [id number] Dis Date: Status: ADM IN PHONE #: [phone] Exam Date: 01/11/20201824 FAX #: [phone] Reason: CHF EXAMS: CPT CODE: [id number] XR CHEST 1 V 43674 REASON FOR EXAM: CHF Exam Order Date: [...] volumes with findings of CHF. Location: [facility] at 1825 Reported and signed by: Dago Goodson MD CC: Alfa Cassidy MD; Benjamin Masters Technologist: SCOOBY PARSONS, RT(R); TAWANNA HURTADO RT(R) Trnscrd Date/Time/By: 01/11/2020 (1824) : By: [email or web address] Orig Print D/T: S: 01/11/2020 (1827) PAGE 1 Signed Report [id number] 16:50:00* Test Item Value Reference Range Interpretation Comments GLUBED (test code = GLUBED) 262 mg/dL 74-106 H Performed by certified ripper operator at [facility] [id number] 12:17:00* Test Item Value Reference Range Interpretation Comments GLUBED (test code = GLUBED) 348 mg/dL 74-106 H Performed by certified ripper operator at [facility] [id number] 08:51:00* Test Item Value Reference Range Interpretation Comments GLUBED (test code = GLUBED) 361 mg/dL 74-106 H Performed by certified ripper operator at [facility] BRONCH LAVAGE FLD CELL CT/[id number] 22:17:00* Test Item Value Reference Range Interpretation [...] REVIEWED BY (test code = REVIEW) PATHOLOGIST [id number] 20:37:00* Test Item Value Reference Range Interpretation Comments GLUBED (test code = GLUBED) 334 mg/dL 74-106 H Performed by certified ripper operator at [facility] [id number] 17:59:00* Test Item Value Reference Range Interpretation Comments GLUBED (test code = GLUBED) 310 mg/dL 74-106 H Performed by certified ripper operator at [facility] [id number] 13:51:00* Test Item Value Reference Range Interpretation Comments GLUBED (test code = GLUBED) 260 mg/dL 74-106 H Performed by certified ripper operator at [facility] BASIC METABOLIC [id number] 10:17:00* Test Item Value Reference Range Interpretation [...] CA) 8.6 mg/dL 8.5-10.1 N BASIC METABOLIC [id number] 10:13:00* Test Item Value Reference Range Interpretation [...] CALCIUM (test code = CA) mg/dL 8.5-10.1 [id number] 08:31:00* Test Item Value Reference Range Interpretation Comments GLUBED (test code = GLUBED) 191 mg/dL 74-106 H Performed by certified ripper operator at [facility] CBC W/AUTO [id number] 07:02:00* Test Item Value Reference Range Interpretation [...] = MDIFF) NO, ONLY SCAN NEEDED DIFFERENTIAL [id number] 07:02:00* Test Item Value Reference Range Interpretation Comments STAIN ACCEPTABILITY (test code = STN ACCEPTABLE) STAIN ACCEPTABLE POLYCHROMASIA (test code = POLC) 1+ ANISOCYTOSIS (test code = ANISO) 2+ MICROCYTOSIS (test code = MICR) 2+ MORPHOLOGY COMMENT (test code = MOC) TEST NOT PERFORMED PLATELET ESTIMATE (test code = PLTEST) ADEQUATE PLATELET MORPHOLOGY (test code = PLTMORPH) NORMAL COMPREHENSIVE METABOLIC [id number] 05:34:00* Test Item Value Reference Range Interpretation [...] due to change in reagent. CBC W/AUTO [id number] 05:30:00* Test Item Value Reference Range Interpretation [...] = MDIFF) NO, ONLY SCAN NEEDED DIFFERENTIAL [id number] 05:30:00* Test Item Value Reference Range Interpretation Comments STAIN ACCEPTABILITY (test code = STN ACCEPTABLE) CABOT RINGS (test code = CAB) MORPHOLOGY COMMENT (test code = MOC) PLATELET ESTIMATE (test code = PLTEST) PLATELET MORPHOLOGY (test code = PLTMORPH) CBC W/AUTO [id number] 05:30:00* Test Item Value Reference Range Interpretation [...] = MDIFF) NO, ONLY SCAN NEEDED DIFFERENTIAL [id number] 05:30:00* Test Item Value Reference Range Interpretation Comments STAIN ACCEPTABILITY (test code = STN ACCEPTABLE) CABOT RINGS (test code = CAB) MORPHOLOGY COMMENT (test code = MOC) PLATELET ESTIMATE (test code = PLTEST) PLATELET MORPHOLOGY (test code = PLTMORPH) CBC W/AUTO [id number] 05:30:00* Test Item Value Reference Range Interpretation [...] = MDIFF) NO, ONLY SCAN NEEDED DIFFERENTIAL [id number] 05:30:00* Test Item Value Reference Range Interpretation Comments STAIN ACCEPTABILITY (test code = STN ACCEPTABLE) MORPHOLOGY COMMENT (test code = MOC) PLATELET ESTIMATE (test code = PLTEST) PLATELET MORPHOLOGY (test code = PLTMORPH) CBC W/AUTO [id number] 05:30:00* Test Item Value Reference Range Interpretation [...] = MDIFF) NO, ONLY SCAN NEEDED DIFFERENTIAL [id number] 05:30:00* Test Item Value Reference Range Interpretation Comments STAIN ACCEPTABILITY (test code = STN ACCEPTABLE) CABOT RINGS (test code = CAB) MORPHOLOGY COMMENT (test code = MOC) PLATELET ESTIMATE (test code = PLTEST) PLATELET MORPHOLOGY (test code = PLTMORPH) COMPREHENSIVE METABOLIC [id number] 05:24:00* Test Item Value Reference Range Interpretation [...] TOTAL (test code = ALKP) IUnit/L 45-117 [id number] 20:32:00* Test Item Value Reference Range Interpretation Comments GLUBED (test code = GLUBED) 108 mg/dL 74-106 H Performed by certified ripper operator at [facility] [id number] 16:44:00* Test Item Value Reference Range Interpretation Comments GLUBED (test code = GLUBED) 125 mg/dL 74-106 H Performed by certified ripper operator at [facility] Coronavirus 2019 nCoV [id number] 16:38:00* Test Item Value Reference Range Interpretation Comments Coronavirus 2019 nCoV Bedside (test code = COVNONPUIBED) Negative [id number] 12:17:00* Test Item Value Reference Range Interpretation Comments GLUBED (test code = GLUBED) 171 mg/dL 74-106 H Performed by certified ripper operator at [facility] [id number] 08:34:00* Test Item Value Reference Range Interpretation Comments GLUBED (test code = GLUBED) 341 mg/dL 74-106 H Performed by certified ripper operator at [facility] - CT CHEST W/[id number] 06:53:00 Name: KALYANI TALAVERA [facility] : 1955 Age/S: 64 / F [address] [facility] Unit #: [id number] Loc: [place] [address] Phys: Rigo Alexander MD Acct: [id number] Dis Date: Status: ADM IN PHONE #: [phone] Exam Date: 01/08/20208 FAX #: [phone] Reason: interstitial lung disease, pulmonary HTN EXAMS: CPT CODE: [id number] CT CHEST W/CONTRAST 89028 HISTORY: Interstitial lung disease and pulmonary hypertension. [...] (0656) YANETH VARGAS 1 Signed Report PROTHROMBIN [id number] 05:24:00* Test Item Value Reference Range Interpretation [...] (2.5-3.5) IS PATIENT ON ANTICOAGULANTS? NTHROMBOPLASTIN TIME [id number] 05:24:00* Test Item Value Reference Range Interpretation Comments THROMBOPLASTIN TIME PARTIAL (test code = PTT) 27.5 seconds 23.0-37. 0 N IS PATIENT ON ANTICOAGULANTS? [id number] 20:06:00* Test Item Value Reference Range Interpretation Comments GLUBED (test code = GLUBED) 162 mg/dL 74-106 H Performed by certified ripper operator at [facility] [id number] 17:04:00* Test Item Value Reference Range Interpretation Comments GLUBED (test code = GLUBED) 135 mg/dL 74-106 H Performed by certified ripper operator at [facility] [id number] 12:10:00* Test Item Value Reference Range Interpretation Comments GLUBED (test code = GLUBED) 375 mg/dL 74-106 H Performed by certified ripper operator at [facility] [id number] 08:11:00* Test Item Value Reference Range Interpretation Comments GLUBED (test code = GLUBED) 259 mg/dL 74-106 H Performed by certified ripper operator at [facility] CBC W/AUTO [id number] 05:20:00* Test Item Value Reference Range Interpretation [...] = MDIFF) NO, ONLY SCAN NEEDED DIFFERENTIAL [id number] 05:20:00* Test Item Value Reference Range Interpretation [...] (test code = PLTMORPH) NORMAL B-TYPE NATRIURETIC [id number] 05:03:00* Test Item Value Reference Range Interpretation Comments B-TYPE NATRIURETIC PEPTIDE (test code = BNP) 24.60 pgram/mL 0-100 N COMPREHENSIVE METABOLIC [id number] 04:59:00* Test Item Value Reference Range Interpretation [...] due to change in reagent. COMPREHENSIVE METABOLIC [id number] 04:50:00* Test Item Value Reference Range Interpretation [...] code = ALKP) IUnit/L 45-117 CBC W/AUTO [id number] 04:45:00* Test Item Value Reference Range Interpretation [...] = MDIFF) NO, ONLY SCAN NEEDED DIFFERENTIAL [id number] 04:45:00* Test Item Value Reference Range Interpretation Comments STAIN ACCEPTABILITY (test code = STN ACCEPTABLE) CABOT RINGS (test code = CAB) MORPHOLOGY COMMENT (test code = MOC) PLATELET ESTIMATE (test code = PLTEST) PLATELET MORPHOLOGY (test code = PLTMORPH) CBC W/AUTO [id number] 04:45:00* Test Item Value Reference Range Interpretation [...] = MDIFF) NO, ONLY SCAN NEEDED DIFFERENTIAL [id number] 04:45:00* Test Item Value Reference Range Interpretation Comments STAIN ACCEPTABILITY (test code = STN ACCEPTABLE) CABOT RINGS (test code = CAB) MORPHOLOGY COMMENT (test code = MOC) PLATELET ESTIMATE (test code = PLTEST) PLATELET MORPHOLOGY (test code = PLTMORPH) CBC W/AUTO [id number] 04:45:00* Test Item Value Reference Range Interpretation [...] = MDIFF) NO, ONLY SCAN NEEDED DIFFERENTIAL [id number] 04:45:00* Test Item Value Reference Range Interpretation Comments STAIN ACCEPTABILITY (test code = STN ACCEPTABLE) MORPHOLOGY COMMENT (test code = MOC) PLATELET ESTIMATE (test code = PLTEST) PLATELET MORPHOLOGY (test code = PLTMORPH) CBC W/AUTO [id number] 04:45:00* Test Item Value Reference Range Interpretation [...] = MDIFF) NO, ONLY SCAN NEEDED DIFFERENTIAL [id number] 04:45:00* Test Item Value Reference Range Interpretation Comments STAIN ACCEPTABILITY (test code = STN ACCEPTABLE) CABOT RINGS (test code = CAB) MORPHOLOGY COMMENT (test code = MOC) PLATELET ESTIMATE (test code = PLTEST) PLATELET MORPHOLOGY (test code = PLTMORPH) [id number] 23:24:00* Test Item Value Reference Range Interpretation Comments GLUBED (test code = GLUBED) 292 mg/dL 74-106 H Performed by certified ripper operator at [facility] [id number] 19:46:00* Test Item Value Reference Range Interpretation Comments GLUBED (test code = GLUBED) 306 mg/dL 74-106 H Performed by certified ripper operator at [facility] - XR CHEST 1 [id number] 19:39:00 FAX: Rigo Mccormick MD [phone] [place]: St: ADM FAX: Alfa Moscoso MD [phone] FAX: Benjamin Francis MD [phone] Name: KALYANI TALAVERA [facility] : 1955 Age/S: 64/F [address] [facility] Unit #: [id number] Loc: V.3042 [place] [address] Phys: Rigo Alexander MD Acct: [id number] Dis Date: Status: ADM IN PH ONE #: [phone] Exam Date: 01/07/2020 1835 FAX #: [phone] Reason: chf EXAMS: CPT CODE: [id number] XR CHEST 1 V 79475 EXAM: Chest x- ray, one view; INFORMATION: Shortness of breath, CHF; IMPRESSION: 1. Compared with yesterday's study, the left lung is sli ghtly better aerated; 2. No further significant changes; persist ent cardiomegaly and interstitial edema consistent with left heart failu re. Location code: [facility] Electronically Sig rainer by Gregory Bravo on 01/07/2020 at 1939 Reported and signed by: Jc Bravo M.D. CC: Rigo Alexander MD; Alfa Cassidy MD; Benjamin Masters Technologist: RT Frankie(R Trnscrd Date/Time/By: 01/07/2020 (1938) : By: Dannielle Orig Print D/T: S: 0 01/07/2020 (1941) PAGE 1 Signed Re port [id number] 16:14:00* Test Item Value Reference Range Interpretation Comments GLUBED (test code = GLUBED) 67 mg/dL 74-106 L Performed by certified ripper operator at [facility] [id number] 11:11:00* Test Item Value Reference Range Interpretation Comments GLUBED (test code = GLUBED) 320 mg/dL 74-106 H Performed by certified ripper operator at [facility] [id number] 07:56:00* Test Item Value Reference Range Interpretation Comments GLUBED (test code = GLUBED) 426 mg/dL 74-106 H Performed by certified ripper operator at [facility] [id number] 20:36:00* Test Item Value Reference Range Interpretation Comments GLUBED (test code = GLUBED) > 500 mg/dL 74-106 HH Performed by certified ripper operator at [facility] - US [facility] W/[id number] 20:29:00 Name: KALYANI TALAVERA [facility] : 1955 Age/S: 64 / F [address] [facility] Unit #: [id number] Loc: [place] [address] Phys: Rigo Alexander MD Acct: [id number] Dis Date: Status: ADM IN PHONE #: [phone] Exam Date: 01/06/2020 1950 FAX #: [phone] Reason: pleural effusions EXAMS: CPT CODE: [id number] CHST W/MEDIASTINUM 06604 EXAM: Ultrasound of the chest; INFORMATION: Shortness of breath, pleural effusions? IMPRESSION: No sonographic evidence of pleural effusions. Location code: [facility] at 2028 Reported and signed by: Jc Bravo M.D. CC: Rigo Alexander MD; Benjamin Masters Technologist: Tamy Lanier RDMS Trnscb Date/Time: 01/06/2020 (2028) t.SDR.GRW Orig Print D/T: S: 01/06/2020 (2031) Probe: PAGE 1 Signed Report [id number] 18:13:00* Test Item Value Reference Range Interpretation Comments GLUBED (test code = GLUBED) > 500 mg/dL 74-106 HH Per[facility] by certified ripper operator [facility]~ [id number] 16:16:00* Test Item Value Reference Range Interpretation Comments GLUBED (test code = GLUBED) > 500 mg/dL 74-106 HH Per[facility] by certified ripper operator [facility]~ [id number] 13:43:00* Test Item Value Reference Range Interpretation Comments TROPONIN-I (test code = TROPI) <0.015 ng/mL 0-0.045 N COMMENTS TO HOUSEHOLD APPLIANCE MECHANIC: COLLECT 3 HOURS AFTER PREVIOUS SAMPLEB-TYPE NATRIURETIC [id number] 10:13:00* Test Item Value Reference Range Interpretation Comments B-TYPE NATRIURETIC PEPTIDE (test code = BNP) 44.58 pgram/mL 0-100 N BASIC METABOLIC [id number] 06:56:00* Test Item Value Reference Range Interpretation [...] code = CA) 8.8 mg/dL 8.5-10.1 N [id number] 06:56:00* Test Item Value Reference Range Interpretation Comments TROPONIN-I (test code = TROPI) <0.015 ng/mL 0-0.045 N BASIC METABOLIC [id number] 06:43:00* Test Item Value Reference Range Interpretation [...] CALCIUM (test code = CA) mg/dL 8.5-10.1 [id number] 06:43:00* Test Item Value Reference Range Interpretation Comments TROPONIN-I (test code = TROPI) ng/mL 0-0.045 CBC W/O [id number] 06:22:00* Test Item Value Reference Range Interpretation [...] fL 6.7-11.0 N - XR CHEST 1 [id number] 06:03:00 FAX: Colton Khalil MD [phone] [place]: St: REG FAX: Y Benjamin Masters MD [phone] Name: KALYANI TALAVERA [facility] : 1955 Age/S: 64/F [address] [facility] Unit #: [id number] Loc: [place] [address] Phys: Colton Khalil MD Acct: [id number] Dis Date: Status: REG ER PHONE #: [phone] Exam Date: 01/06/2020 0539 FAX #: [phone] Reason: Shortness of Breath EXAMS: CPT CODE: [id number] XR CHEST 1 V 08497 HISTORY: Shortness of breath Location: C3 COMPARISON:12/23/2019 [...] By: [email or web address] Orig Print D/T: S: 01/06/2020 (605) PAGE 1 Signed Report [id number] 07:49:00* Test Item Value Reference Range Interpretation Comments GLUBED (test code = GLUBED) 237 mg/dL 74-106 H Performed by certified ripper operator at [facility] BASIC METABOLIC [id number] 05:57:00* Test Item Value Reference Range Interpretation [...] CA) 8.5 mg/dL 8.5-10.1 N BASIC METABOLIC [id number] 05:49:00* Test Item Value Reference Range Interpretation [...] CALCIUM (test code = CA) mg/dL 8.5-10.1 [id number] 20:28:00* Test Item Value Reference Range Interpretation Comments GLUBED (test code = GLUBED) 211 mg/dL 74-106 H Performed by certified ripper operator at [facility] [id number] 17:59:00* Test Item Value Reference Range Interpretation Comments GLUBED (test code = GLUBED) 254 mg/dL 74-106 H Performed by certified ripper operator at [facility] [id number] 17:59:00* Test Item Value Reference Range Interpretation Comments GLUBED (test code = GLUBED) 259 mg/dL 74-106 H Performed by certified ripper operator at [facility] BASIC METABOLIC [id number] 11:13:00* Test Item Value Reference Range Interpretation [...] CA) 8.2 mg/dL 8.5-10.1 L BASIC METABOLIC [id number] 11:08:00* Test Item Value Reference Range Interpretation [...] CALCIUM (test code = CA) mg/dL 8.5-10.1 [id number] 08:42:00* Test Item Value Reference Range Interpretation Comments GLUBED (test code = GLUBED) 195 mg/dL 74-106 H Performed by certified ripper operator at [facility] [id number] 20:18:00* Test Item Value Reference Range Interpretation Comments GLUBED (test code = GLUBED) 238 mg/dL 74-106 H Performed by certified ripper operator at [facility] [id number] 16:32:00* Test Item Value Reference Range Interpretation Comments GLUBED (test code = GLUBED) 149 mg/dL 74-106 H Performed by certified ripper operator at [facility] [id number] 12:15:00* Test Item Value Reference Range Interpretation Comments GLUBED (test code = GLUBED) 189 mg/dL 74-106 H Performed by certified ripper operator at [facility] BASIC METABOLIC [id number] 09:00:00* Test Item Value Reference Range Interpretation [...] code = CA) 8.4 mg/dL 8.5-10.1 L [id number] 09:00:00* Test Item Value Reference Range Interpretation Comments MAGNESIUM (test code = MAG) 1.9 mg/dL 1.8-2.4 N [id number] 07:52:00* Test Item Value Reference Range Interpretation Comments GLUBED (test code = GLUBED) 251 mg/dL 74-106 H Performed by certified ripper operator at [facility] [id number] 22:38:00* Test Item Value Reference Range Interpretation Comments GLUBED (test code = GLUBED) 157 mg/dL 74-106 H Performed by certified ripper operator at [facility] [id number] 21:25:00* Test Item Value Reference Range Interpretation Comments GLUBED (test code = GLUBED) 154 mg/dL 74-106 H Performed by certified ripper operator at [facility] [id number] 16:46:00* Test Item Value Reference Range Interpretation Comments GLUBED (test code = GLUBED) 156 mg/dL 74-106 H Performed by certified ripper operator at [facility] [id number] 10:44:00* Test Item Value Reference Range Interpretation Comments GLUBED (test code = GLUBED) 240 mg/dL 74-106 H Performed by certified ripper operator at [facility] [id number] 07:55:00* Test Item Value Reference Range Interpretation Comments GLUBED (test code = GLUBED) 178 mg/dL 74-106 H Performed by certified ripper operator at [facility] BASIC METABOLIC [id number] 06:00:00* Test Item Value Reference Range Interpretation [...] code = CA) 8.4 mg/dL 8.5-10.1 L [id number] 06:00:00* Test Item Value Reference Range Interpretation Comments MAGNESIUM (test code = MAG) 2.0 mg/dL 1.8-2.4 N [id number] 21:31:00* Test Item Value Reference Range Interpretation Comments GLUBED (test code = GLUBED) 461 mg/dL 74-106 H Performed by certified ripper operator at [facility] [id number] 15:49:00* Test Item Value Reference Range Interpretation Comments GLUBED (test code = GLUBED) 400 mg/dL 74-106 H Performed by certified ripper operator at [facility] [id number] 12:49:00* Test Item Value Reference Range Interpretation Comments GLUBED (test code = GLUBED) 339 mg/dL 74-106 H Performed by certified ripper operator at [facility] [id number] 07:41:00* Test Item Value Reference Range Interpretation Comments GLUBED (test code = GLUBED) 328 mg/dL 74-106 H Performed by certified ripper operator at [facility] BASIC METABOLIC [id number] 05:42:00* Test Item Value Reference Range Interpretation [...] CA) 8.5 mg/dL 8.5-10.1 N BASIC METABOLIC [id number] 05:33:00* Test Item Value Reference Range Interpretation [...] CALCIUM (test code = CA) mg/dL 8.5-10.1 [id number] 03:29:00* Test Item Value Reference Range Interpretation Comments GLUBED (test code = GLUBED) 221 mg/dL 74-106 H Performed by certified ripper operator at [facility] [id number] 20:20:00* Test Item Value Reference Range Interpretation Comments GLUBED (test code = GLUBED) 406 mg/dL 74-106 H Performed by certified ripper operator at [facility] [id number] 18:02:00* Test Item Value Reference Range Interpretation Comments TROPONIN-I (test code = TROPI) <0.015 ng/mL 0-0.045 N COMMENTS TO HOUSEHOLD APPLIANCE MECHANIC: COLLECT 3 HOURS AFTER PREVIOUS [id number] 17:46:00* Test Item Value Reference Range Interpretation Comments MAGNESIUM (test code = MAG) 2.0 mg/dL 1.8-2.4 N [id number] 17:35:00* Test Item Value Reference Range Interpretation Comments GLUBED (test code = GLUBED) 363 mg/dL 74-106 H Performed by certified ripper operator at [facility] [id number] 13:25:00* Test Item Value Reference Range Interpretation Comments TROPONIN-I (test code = TROPI) <0.015 ng/mL 0-0.045 N COMMENTS TO HOUSEHOLD APPLIANCE MECHANIC: COLLECT 3 HOURS AFTER PREVIOUS SAMPLEURINALYSIS [id number] 10:05:00* Test Item Value Reference Range Interpretation [...] #/HPF NONE A Urine Source? Clean CatchURINALYSIS [id number] 10:05:00* Test Item Value Reference Range Interpretation [...] A Urine Source? Clean CatchCoronavirus 2018 nCoV [id number] 07:24:00* Test Item Value Reference Range Interpretation Comments Coronavirus 2019 nCoV Bedside (test code = [id number]) Negative Is patient requiring admission or transfer? [...] = MDIFF) NO, ONLY SCAN NEEDED DIFFERENTIAL [id number] 07:22:00* Test Item Value Reference Range Interpretation Comments STAIN ACCEPTABILITY (test code = STN ACCEPTABLE) STAIN ACCEPTABLE POLYCHROMASIA (test code = POLC) 1+ POIKILOCYTOSIS (test code = POIK) 1+ ANISOCYTOSIS (test code = ANISO) 1+ MICROCYTOSIS (test code = MICR) 1+ PLATELET ESTIMATE (test code = PLTEST) DECREASED PLATELET MORPHOLOGY (test code = PLTMORPH) NORMAL B-TYPE NATRIURETIC [id number] 07:19:00* Test Item Value Reference Range Interpretation Comments B-TYPE NATRIURETIC PEPTIDE (test code = BNP) 38.62 pgram/mL 0-100 N BASIC METABOLIC [id number] 06:41:00* Test Item Value Reference Range Interpretation [...] CA) 8.7 mg/dL 8.5-10.1 N HEPATIC FUNCTION [id number] 06:41:00* Test Item Value Reference Range Interpretation [...] reference range due to change in reagent. [id number] 06:41:00* Test Item Value Reference Range Interpretation Comments LIPASE (test code = LIP) 91 U/L 73.0-393.0 N [id number] 06:41:00* Test Item Value Reference Range Interpretation Comments TROPONIN-I (test code = TROPI) <0.015 ng/mL 0-0.045 N PROTHROMBIN [id number] 06:31:00* Test Item Value Reference Range Interpretation [...] (2.5-3.5) IS PATIENT ON ANTICOAGULANTS? NTHROMBOPLASTIN TIME [id number] 06:31:00* Test Item Value Reference Range Interpretation Comments THROMBOPLASTIN TIME PARTIAL (test code = PTT) 30.8 seconds 23.0-37. 0 N IS PATIENT ON ANTICOAGULANTS? NCBC W/AUTO [id number] 06:30:00* Test Item Value Reference Range Interpretation [...] = MDIFF) NO, ONLY SCAN NEEDED DIFFERENTIAL [id number] 06:30:00* Test Item Value Reference Range Interpretation Comments STAIN ACCEPTABILITY (test code = STN ACCEPTABLE) CABOT RINGS (test code = CAB) MORPHOLOGY COMMENT (test code = MOC) PLATELET ESTIMATE (test code = PLTEST) PLATELET MORPHOLOGY (test code = PLTMORPH) BASIC METABOLIC [id number] 06:30:00* Test Item Value Reference Range Interpretation [...] code = CA) mg/dL 8.5-10.1 HEPATIC FUNCTION [id number] 06:30:00* Test Item Value Reference Range Interpretation [...] TOTAL (test code = ALKP) IUnit/L 45-117 [id number] 06:30:00* Test Item Value Reference Range Interpretation Comments LIPASE (test code = LIP) U/L 73.0-393.0 [id number] 06:30:00* Test Item Value Reference Range Interpretation Comments TROPONIN-I (test code = TROPI) ng/mL 0-0.045 CBC W/AUTO [id number] 06:30:00* Test Item Value Reference Range Interpretation [...] = MDIFF) NO, ONLY SCAN NEEDED DIFFERENTIAL [id number] 06:30:00* Test Item Value Reference Range Interpretation Comments STAIN ACCEPTABILITY (test code = STN ACCEPTABLE) CABOT RINGS (test code = CAB) MORPHOLOGY COMMENT (test code = MOC) PLATELET ESTIMATE (test code = PLTEST) PLATELET MORPHOLOGY (test code = PLTMORPH) CBC W/AUTO [id number] 06:30:00* Test Item Value Reference Range Interpretation [...] = MDIFF) NO, ONLY SCAN NEEDED DIFFERENTIAL [id number] 06:30:00* Test Item Value Reference Range Interpretation Comments STAIN ACCEPTABILITY (test code = STN ACCEPTABLE) MORPHOLOGY COMMENT (test code = MOC) PLATELET ESTIMATE (test code = PLTEST) PLATELET MORPHOLOGY (test code = PLTMORPH) CBC W/AUTO [id number] 06:30:00* Test Item Value Reference Range Interpretation [...] = MDIFF) NO, ONLY SCAN NEEDED DIFFERENTIAL [id number] 06:30:00* Test Item Value Reference Range Interpretation Comments STAIN ACCEPTABILITY (test code = STN ACCEPTABLE) CABOT RINGS (test code = CAB) MORPHOLOGY COMMENT (test code = MOC) PLATELET ESTIMATE (test code = PLTEST) PLATELET MORPHOLOGY (test code = PLTMORPH) - XR CHEST 1 [id number] 05:45:00 FAX: Benjamin Francis MD [phone] [place]: [address] St: REG FAX: Leonora Norton [phone] Name: KALYANI TALAVERA [facility] : 1955 Age/S: 64/F [address] Unit #: [id number] Loc: [place] [address] Phys: Leonora Goins MD Acct: [id number] Dis Date: Status: REG ER PHONE #: [phone] Exam Date: 12/23/2019530 FAX #: [phone] Reason: SHORTNESS OF BREATH EXAMS: CPT CODE: [id number] XR CHEST 1 V 20331 AFTER HOURS SERVICE ON: 12/23/2019 5:44 AM [...] By: [email or web address] Orig Print D/T: S: 12/23/2019 (0566) PAGE 1 Signed Report B-TYPE NATRIURETIC [id number] 05:44:00* Test Item Value Reference Range Interpretation Comments B-TYPE NATRIURETIC PEPTIDE (test code = BNP) 38.94 pgram/mL 0-100 N Coronavirus 2019 nCoV [id number] 04:56:00* Test Item Value Reference Range Interpretation Comments Coronavirus 2019 nCoV Bedside (test code = [id number]) Negative Is patient requiring admission or transfer? YIndication for rapid COVID-19 testi ng: Mod Clinical SuspicionBASIC METABOLIC [id number] 04:48:00* Test Item Value Reference Range Interpretation [...] code = CA) 8.8 mg/dL 8.5-10.1 N [id number] 04:48:00* Test Item Value Reference Range Interpretation Comments TROPONIN-I (test code = TROPI) <0.015 ng/mL 0-0.045 N CBC W/O [id number] 04:39:00* Test Item Value Reference Range Interpretation [...] MPV) 10.6 fL 6.7-11.0 N BASIC METABOLIC [id number] 04:37:00* Test Item Value Reference Range Interpretation [...] CALCIUM (test code = CA) mg/dL 8.5-10.1 [id number] 04:37:00* Test Item Value Reference Range Interpretation Comments TROPONIN-I (test code = TROPI) ng/mL 0-0.045 - XR CHEST 1 [id number] 03:58:00 FAX: Benjamin Francis MD [phone] [place]: St: [facility] FAX: Vince Jones DO Name: KALYANI TALAVERA [facility] : 1955 Age/S: 64/F [address] [facility] Unit #: [id number] Loc: [place] [address] Phys: Vince Jones DO Acct: [id number] Dis Date: Status: REG ER PHONE #: [phone] Exam Date: 12/16/2019 0345 FAX #: [phone] Reason: Shortness of Breath EXAMS: CPT CODE: [id number] XR CHEST 1 V 75643 EXAM: - XR CHEST 1 V HISTORY: [...] Vince Jones DO Technologist: RT JOSÉ MIGUEL(Megan) Ifeanyi garcia Date/Time/By: 12/16/2019 (0358) : By: [email or web address] Orig Print D/T: S : 12/16/2019 (0402) PAGE 1 Signed Report B-TYPE NATRIURETIC [id number] 03:51:00* Test Item Value Reference Range Interpretation Comments B-TYPE NATRIURETIC PEPTIDE (test code = BNP) 93.94 pgram/mL 0-100 N BASIC METABOLIC [id number] 03:42:00* Test Item Value Reference Range Interpretation [...] code = CA) 8.9 mg/dL 8.5-10.1 N [id number] 03:42:00* Test Item Value Reference Range Interpretation Comments TROPONIN-I (test code = TROPI) <0.015 ng/mL 0-0.045 N - XR CHEST 1 [id number] 03:13:00 FAX: Jani Roque [phone] [place]: St: [facility] FAX: Benjamin Francis MD [phone] Name: KALYANI TALAVERA [facility] : 1955 Age/S: 64/F [address] [facility] Unit #: [id number] Loc: [place] [address] Phys: Jani Roque MD Acct: [id number] Dis Date: Status: REG ER PHONE #: [phone] Exam Date: 12/12/2019 0233 FAX #: [phone] Reason: Shortness of Breath EXAMS: CPT CODE: [id number] XR CHEST 1 V 99662 - XR CHEST 1 V, 12/12/2019 2:26 [...] Masters Technologist: RT EDUARDO Trnscrd Date/Time/By: 12/12/2019 (0313) : By: [email or web address] Orig Print D/T: S: 12/12/2019 (0318) PAGE 1 Signed Report PROTHROMBIN [id number] 03:11:00* Test Item Value Reference Range Interpretation [...] (2.5-3.5) IS PATIENT ON ANTICOAGULANTS? NTHROMBOPLASTIN TIME [id number] 03:11:00* Test Item Value Reference Range Interpretation Comments THROMBOPLASTIN TIME PARTIAL (test code = PTT) 33.6 seconds 23.0-37. 0 N IS PATIENT ON ANTICOAGULANTS? NBASIC METABOLIC [id number] 03:05:00* Test Item Value Reference Range Interpretation [...] code = CA) 8.9 mg/dL 8.5-10.1 N [id number] 03:05:00* Test Item Value Reference Range Interpretation Comments TROPONIN-I (test code = TROPI) ng/mL 0-0.045 CBC W/O [id number] 02:54:00* Test Item Value Reference Range Interpretation [...] code = MPV) 10.0 fL 6.7-11.0 N [id number] 15:43:00* Test Item Value Reference Range Interpretation Comments GLUBED (test code = GLUBED) 157 mg/dL 74-106 H Performed by certified ripper operator at [facility] BASIC METABOLIC [id number] 14:27:00* Test Item Value Reference Range Interpretation [...] CA) 8.5 mg/dL 8.5-10.1 N BASIC METABOLIC [id number] 14:23:00* Test Item Value Reference Range Interpretation [...] code = CA) 8.5 mg/dL 8.5-10.1 N [id number] 11:31:00* Test Item Value Reference Range Interpretation Comments GLUBED (test code = GLUBED) 92 mg/dL 74-106 N Performed by certified ripper operator at [facility] [id number] 07:50:00* Test Item Value Reference Range Interpretation Comments GLUBED (test code = GLUBED) 172 mg/dL 74-106 H Performed by certified ripper operator at [facility] [id number] 00:32:00* Test Item Value Reference Range Interpretation Comments GLUBED (test code = GLUBED) 71 mg/dL 74-106 L Performed by certified ripper operator at [facility] [id number] 21:13:00* Test Item Value Reference Range Interpretation Comments GLUBED (test code = GLUBED) 110 mg/dL 74-106 H Performed by certified ripper operator at [facility] [id number] 16:45:00* Test Item Value Reference Range Interpretation Comments GLUBED (test code = GLUBED) 192 mg/dL 74-106 H Performed by certified ripper operator at [facility]~ BASIC METABOLIC [id number] 15:12:00* Test Item Value Reference Range Interpretation [...] code = CA) 8.3 mg/dL 8.5-10.1 L [id number] 15:12:00* Test Item Value Reference Range Interpretation Comments MAGNESIUM (test code = MAG) 2.2 mg/dL 1.8-2.4 N BASIC METABOLIC [id number] 15:07:00* Test Item Value Reference Range Interpretation [...] CALCIUM (test code = CA) mg/dL 8.5-10.1 [id number] 15:07:00* Test Item Value Reference Range Interpretation Comments MAGNESIUM (test code = MAG) mg/dL 1.8-2.4 [id number] 13:08:00* Test Item Value Reference Range Interpretation Comments GLUBED (test code = GLUBED) 107 mg/dL 74-106 H Per[facility] by certified ripper operator [facility] [id number] 08:18:00* Test Item Value Reference Range Interpretation Comments GLUBED (test code = GLUBED) 184 mg/dL 74-106 H Performed by certified ripper operator [facility] [id number] 06:54:00* Test Item Value Reference Range Interpretation Comments GLUBED (test code = GLUBED) 141 mg/dL 74-106 H Performed by certified ripper operator at [facility] [id number] 20:59:00* Test Item Value Reference Range Interpretation Comments GLUBED (test code = GLUBED) 100 mg/dL 74-106 N Performed by certified ripper operator at [facility] [id number] 17:20:00* Test Item Value Reference Range Interpretation Comments GLUBED (test code = GLUBED) 152 mg/dL 74-106 H Performed by certified ripper operator [facility]~ [id number] 16:08:00* Test Item Value Reference Range Interpretation Comments GLUBED (test code = GLUBED) 223 mg/dL 74-106 H Performed by certified ripper operator at [facility] [id number] 12:35:00* Test Item Value Reference Range Interpretation Comments GLUBED (test code = GLUBED) 262 mg/dL 74-106 H Performed by certified ripper operator at [facility] [id number] 08:13:00* Test Item Value Reference Range Interpretation Comments GLUBED (test code = GLUBED) 86 mg/dL 74-106 N Performed by certified ripper operator at [facility] [id number] 23:34:00* Test Item Value Reference Range Interpretation Comments GLUBED (test code = GLUBED) 294 mg/dL 74-106 H Performed by certified ripper operator at [facility] [id number] 20:47:00* Test Item Value Reference Range Interpretation Comments GLUBED (test code = GLUBED) 262 mg/dL 74-106 H Performed by certified ripper operator at [facility] [id number] 16:20:00* Test Item Value Reference Range Interpretation Comments GLUBED (test code = GLUBED) 62 mg/dL 74-106 L Performed by certified ripper operator at [facility] [id number] 12:23:00* Test Item Value Reference Range Interpretation Comments GLUBED (test code = GLUBED) 203 mg/dL 74-106 H Performed by certified ripper operator at [facility] [id number] 08:24:00* Test Item Value Reference Range Interpretation Comments GLUBED (test code = GLUBED) 316 mg/dL 74-106 H Performed by certified ripper operator at [facility] [id number] 20:06:00* Test Item Value Reference Range Interpretation Comments GLUBED (test code = GLUBED) 416 mg/dL 74-106 H Performed by certified ripper operator at [facility] [id number] 15:45:00* Test Item Value Reference Range Interpretation Comments GLUBED (test code = GLUBED) 298 mg/dL 74-106 H Per[facility] by certified ripper operator [facility] [id number] 12:18:00* Test Item Value Reference Range Interpretation Comments TROPONIN-I (test code = TROPI) <0.015 ng/mL 0-0.045 N COMMENTS TO HOUSEHOLD APPLIANCE MECHANIC: COLLECT 3 HOURS AFTER PREVIOUS [id number] 07:57:00* Test Item Value Reference Range Interpretation Comments TROPONIN-I (test code = TROPI) <0.015 ng/mL 0-0.045 N COMMENTS TO HOUSEHOLD APPLIANCE MECHANIC: COLLECT 3 HOURS AFTER PREVIOUS SAMPLEB-TYPE NATRIURETIC [id number] 01:27:00* Test Item Value Reference Range Interpretation Comments B-TYPE NATRIURETIC PEPTIDE (test code = BNP) 88.96 pgram/mL 0-100 N BASIC METABOLIC [id number] 00:47:00* Test Item Value Reference Range Interpretation [...] code = CA) 8.8 mg/dL 8.5-10.1 N [id number] 00:47:00* Test Item Value Reference Range Interpretation Comments TROPONIN-I (test code = TROPI) <0.015 ng/mL 0-0.045 N CBC W/O [id number] 00:42:00* Test Item Value Reference Range Interpretation [...] MPV) 10.8 fL 6.7-11.0 N BASIC METABOLIC [id number] 00:36:00* Test Item Value Reference Range Interpretation [...] code = CA) 8.8 mg/dL 8.5-10.1 N [id number] 00:36:00* Test Item Value Reference Range Interpretation Comments TROPONIN-I (test code = TROPI) ng/mL 0-0.045 - XR CHEST 1 [id number] 00:02:00 FAX: Russ Malcolm MD [phone] [place]: [address] St: [facility] FAX: Benjamin Francis MD [phone] Name: KALYANI TALAVERA [facility] : 1955 Age/S: 64/F [address] [facility] Unit #: [id number] Loc: [facility] [place] [address] Phys: Russ Malcolm MD Acct: [id number] Dis Date: Status: REG ER PHONE #: [phone] Exam Date: 12/03/2019 6166 FAX #: [phone] Reason: Shortness of Breath EXAMS: CPT CODE: [id number] XR CHEST 1 V 62753 Exam: AP chest Location: H 12 History: [...] S: 12/04/2019 (0005) PAGE 1 Signed Report [id number] 12:24:00* Test Item Value Reference Range Interpretation Comments GLUBED (test code = GLUBED) 151 mg/dL 74-106 H [facility] [id number] 08:12:00* Test Item Value Reference Range Interpretation Comments GLUBED (test code = GLUBED) 169 mg/dL 74-106 H [facility] certified [facility] BASIC METABOLIC [id number] 06:37:00* Test Item Value Reference Range Interpretation [...] code = CA) 8.9 mg/dL 8.5-10.1 N [id number] 20:42:00* Test Item Value Reference Range Interpretation Comments GLUBED (test code = GLUBED) 223 mg/dL 74-106 H Performed by certified ripper operator at [facility] [id number] 16:09:00* Test Item Value Reference Range Interpretation Comments GLUBED (test code = GLUBED) 205 mg/dL 74-106 H Performed by certified ripper operator at [facility] [id number] 11:35:00* Test Item Value Reference Range Interpretation Comments GLUBED (test code = GLUBED) 338 mg/dL 74-106 H Performed by certified ripper operator at [facility] [id number] 08:04:00* Test Item Value Reference Range Interpretation Comments GLUBED (test code = GLUBED) 240 mg/dL 74-106 H Performed by certified ripper operator at [facility] BASIC METABOLIC [id number] 07:18:00* Test Item Value Reference Range Interpretation [...] CA) 8.6 mg/dL 8.5-10.1 N BASIC METABOLIC [id number] 07:14:00* Test Item Value Reference Range Interpretation [...] CALCIUM (test code = CA) mg/dL 8.5-10.1 [id number] 20:28:00* Test Item Value Reference Range Interpretation Comments GLUBED (test code = GLUBED) 343 mg/dL 74-106 H Performed by certified ripper operator at [facility] [id number] 16:32:00* Test Item Value Reference Range Interpretation Comments GLUBED (test code = GLUBED) 279 mg/dL 74-106 H Performed by certified ripper operator at [facility] [id number] 11:49:00* Test Item Value Reference Range Interpretation Comments GLUBED (test code = GLUBED) 290 mg/dL 74-106 H Performed by certified ripper operator at [facility] URINALYSIS [id number] 10:01:00* Test Item Value Reference Range Interpretation [...] FEW #/HPF NONE A Urine Source? [facility]URINALYS[facility] [id number] 10:00:00* Test Item Value Reference Range Interpretation [...] = BACU) per HPF NONE Urine Source? [id number] 08:37:00* Test Item Value Reference Range Interpretation Comments GLUBED (test code = GLUBED) 260 mg/dL 74-106 H Performed by certified ripper operator at [facility] [id number] 05:57:00* Test Item Value Reference Range Interpretation Comments GLUBED (test code = GLUBED) 253 mg/dL 74-106 H Performed by certified ripper operator at [facility] BASIC METABOLIC [id number] 05:52:00* Test Item Value Reference Range Interpretation [...] CA) 8.8 mg/dL 8.5-10.1 N BASIC METABOLIC [id number] 05:49:00* Test Item Value Reference Range Interpretation [...] CALCIUM (test code = CA) mg/dL 8.5-10.1 [id number] 23:00:00* Test Item Value Reference Range Interpretation Comments GLUBED (test code = GLUBED) 108 mg/dL 74-106 H Performed by certified ripper operator at [facility] [id number] 22:22:00* Test Item Value Reference Range Interpretation Comments GLUBED (test code = GLUBED) 111 mg/dL 74-106 H Performed by certified ripper operator at [facility] URINALYSIS [id number] 20:09:00* Test Item Value Reference Range Interpretation [...] = BACU) FEW #/HPF NONE Urine Source? [id number] 16:18:00* Test Item Value Reference Range Interpretation Comments GLUBED (test code = GLUBED) 196 mg/dL 74-106 H Performed by certified ripper operator at [facility] [id number] 12:03:00* Test Item Value Reference Range Interpretation Comments GLUBED (test code = GLUBED) 190 mg/dL 74-106 H Performed by certified ripper operator at [facility] [id number] 08:22:00* Test Item Value Reference Range Interpretation Comments GLUBED (test code = GLUBED) 264 mg/dL 74-106 H [facility] certified ripper [facility] BASIC METABOLIC [id number] 07:56:00* Test Item Value Reference Range Interpretation [...] CA) 8.6 mg/dL 8.5-10.1 N BASIC METABOLIC [id number] 05:39:00* Test Item Value Reference Range Interpretation [...] code = CA) mg/dL 8.5-10.1 CBC W/AUTO [id number] 05:19:00* Test Item Value Reference Range Interpretation [...] = MDIFF) NO, ONLY SCAN NEEDED DIFFERENTIAL [id number] 05:19:00* Test Item Value Reference Range Interpretation Comments STAIN ACCEPTABILITY (test code = STN ACCEPTABLE) STAIN ACCEPTABLE ANISOCYTOSIS (test code = ANISO) 2+ MICROCYTOSIS (test code = MICR) 2+ MORPHOLOGY COMMENT (test code = MOC) TEST NOT PERFORMED PLATELET ESTIMATE (test code = PLTEST) DECREASED PLATELET MORPHOLOGY (test code = PLTMORPH) NORMAL CBC W/AUTO [id number] 05:06:00* Test Item Value Reference Range Interpretation [...] = MDIFF) NO, ONLY SCAN NEEDED DIFFERENTIAL [id number] 05:06:00* Test Item Value Reference Range Interpretation Comments STAIN ACCEPTABILITY (test code = STN ACCEPTABLE) MORPHOLOGY COMMENT (test code = MOC) PLATELET ESTIMATE (test code = PLTEST) PLATELET MORPHOLOGY (test code = PLTMORPH) CBC W/AUTO [id number] 05:00:00* Test Item Value Reference Range Interpretation [...] = MDIFF) NO, ONLY SCAN NEEDED DIFFERENTIAL [id number] 05:00:00* Test Item Value Reference Range Interpretation Comments STAIN ACCEPTABILITY (test code = STN ACCEPTABLE) CABOT RINGS (test code = CAB) MORPHOLOGY COMMENT (test code = MOC) PLATELET ESTIMATE (test code = PLTEST) PLATELET MORPHOLOGY (test code = PLTMORPH) CBC W/AUTO [id number] 05:00:00* Test Item Value Reference Range Interpretation [...] = MDIFF) NO, ONLY SCAN NEEDED DIFFERENTIAL [id number] 05:00:00* Test Item Value Reference Range Interpretation Comments STAIN ACCEPTABILITY (test code = STN ACCEPTABLE) MORPHOLOGY COMMENT (test code = MOC) PLATELET ESTIMATE (test code = PLTEST) PLATELET MORPHOLOGY (test code = PLTMORPH) CBC W/AUTO [id number] 05:00:00* Test Item Value Reference Range Interpretation [...] = MDIFF) NO, ONLY SCAN NEEDED DIFFERENTIAL [id number] 05:00:00* Test Item Value Reference Range Interpretation Comments STAIN ACCEPTABILITY (test code = STN ACCEPTABLE) CABOT RINGS (test code = CAB) MORPHOLOGY COMMENT (test code = MOC) PLATELET ESTIMATE (test code = PLTEST) PLATELET MORPHOLOGY (test code = PLTMORPH) [id number] 20:25:00* Test Item Value Reference Range Interpretation Comments GLUBED (test code = GLUBED) 146 mg/dL 74-106 H Performed by certified ripper operator at [facility] [id number] 15:10:00* Test Item Value Reference Range Interpretation Comments GLUBED (test code = GLUBED) 266 mg/dL 74-106 H Performed by certified ripper operator at [facility] [id number] 11:49:00* Test Item Value Reference Range Interpretation Comments GLUBED (test code = GLUBED) 297 mg/dL 74-106 H Performed by certified ripper operator at [facility] [id number] 07:56:00* Test Item Value Reference Range Interpretation Comments GLUBED (test code = GLUBED) 241 mg/dL 74-106 H Performed by certified ripper operator at [facility] [id number] 20:49:00* Test Item Value Reference Range Interpretation Comments GLUBED (test code = GLUBED) 277 mg/dL 74-106 H [facility] certified ripper operator [facility] [id number] 16:24:00* Test Item Value Reference Range Interpretation Comments GLUBED (test code = GLUBED) 114 mg/dL 74-106 H Per[facility] by certified ripper operator [facility] [id number] 12:12:00* Test Item Value Reference Range Interpretation Comments GLUBED (test code = GLUBED) 229 mg/dL 74-106 H Per[facility] by certified ripper operator [facility] [id number] 08:05:00* Test Item Value Reference Range Interpretation Comments GLUBED (test code = GLUBED) 359 mg/dL 74-106 H Performed by certified ripper operator [facility] CBC W/AUTO [id number] 05:51:00* Test Item Value Reference Range Interpretation [...] = MDIFF) NO, ONLY SCAN NEEDED DIFFERENTIAL [id number] 05:51:00* Test Item Value Reference Range Interpretation [...] (test code = PLTMORPH) NORMAL COMPREHENSIVE METABOLIC [id number] 05:05:00* Test Item Value Reference Range Interpretation [...] due to change in reagent. COMPREHENSIVE METABOLIC [id number] 04:51:00* Test Item Value Reference Range Interpretation [...] code = ALKP) IUnit/L 45-117 CBC W/AUTO [id number] 04:41:00* Test Item Value Reference Range Interpretation [...] = MDIFF) NO, ONLY SCAN NEEDED DIFFERENTIAL [id number] 04:41:00* Test Item Value Reference Range Interpretation Comments STAIN ACCEPTABILITY (test code = STN ACCEPTABLE) CABOT RINGS (test code = CAB) MORPHOLOGY COMMENT (test code = MOC) PLATELET ESTIMATE (test code = PLTEST) PLATELET MORPHOLOGY (test code = PLTMORPH) CBC W/AUTO [id number] 04:41:00* Test Item Value Reference Range Interpretation [...] = MDIFF) NO, ONLY SCAN NEEDED DIFFERENTIAL [id number] 04:41:00* Test Item Value Reference Range Interpretation Comments STAIN ACCEPTABILITY (test code = STN ACCEPTABLE) CABOT RINGS (test code = CAB) MORPHOLOGY COMMENT (test code = MOC) PLATELET ESTIMATE (test code = PLTEST) PLATELET MORPHOLOGY (test code = PLTMORPH) CBC W/AUTO [id number] 04:41:00* Test Item Value Reference Range Interpretation [...] = MDIFF) NO, ONLY SCAN NEEDED DIFFERENTIAL [id number] 04:41:00* Test Item Value Reference Range Interpretation Comments STAIN ACCEPTABILITY (test code = STN ACCEPTABLE) MORPHOLOGY COMMENT (test code = MOC) PLATELET ESTIMATE (test code = PLTEST) PLATELET MORPHOLOGY (test code = PLTMORPH) CBC W/AUTO [id number] 04:41:00* Test Item Value Reference Range Interpretation [...] = MDIFF) NO, ONLY SCAN NEEDED DIFFERENTIAL [id number] 04:41:00* Test Item Value Reference Range Interpretation Comments STAIN ACCEPTABILITY (test code = STN ACCEPTABLE) CABOT RINGS (test code = CAB) MORPHOLOGY COMMENT (test code = MOC) PLATELET ESTIMATE (test code = PLTEST) PLATELET MORPHOLOGY (test code = PLTMORPH) [id number] 20:46:00* Test Item Value Reference Range Interpretation Comments GLUBED (test code = GLUBED) 242 mg/dL 74-106 H Performed by certified ripper operator at [facility] [id number] 16:35:00* Test Item Value Reference Range Interpretation Comments GLUBED (test code = GLUBED) 345 mg/dL 74-106 H Per[facility] certified ripper operator [facility] BASIC METABOLIC [id number] 09:05:00* Test Item Value Reference Range Interpretation [...] CA) 8.7 mg/dL 8.5-10.1 N BASIC METABOLIC [id number] 09:00:00* Test Item Value Reference Range Interpretation [...] CALCIUM (test code = CA) mg/dL 8.5-10.1 [id number] 08:20:00* Test Item Value Reference Range Interpretation Comments GLUBED (test code = GLUBED) 349 mg/dL 74-106 H [facility] certified ripper [facility] CBC W/AUTO [id number] 06:48:00* Test Item Value Reference Range Interpretation [...] = MDIFF) NO, ONLY SCAN NEEDED DIFFERENTIAL [id number] 06:48:00* Test Item Value Reference Range Interpretation Comments STAIN ACCEPTABILITY (test code = STN ACCEPTABLE) STAIN ACCEPTABLE POLYCHROMASIA (test code = POLC) 2+ HYPOCHROMIA (test code = HYPO) 1+ ANISOCYTOSIS (test code = ANISO) 2+ MICROCYTOSIS (test code = MICR) 2+ PLATELET ESTIMATE (test code = PLTEST) DECREASED PLATELET MORPHOLOGY (test code = PLTMORPH) NORMAL COMPREHENSIVE METABOLIC [id number] 05:21:00* Test Item Value Reference Range Interpretation [...] due to change in reagent. COMPREHENSIVE METABOLIC [id number] 05:14:00* Test Item Value Reference Range Interpretation [...] code = ALKP) IUnit/L 45-117 CBC W/AUTO [id number] 05:08:00* Test Item Value Reference Range Interpretation [...] = MDIFF) NO, ONLY SCAN NEEDED DIFFERENTIAL [id number] 05:08:00* Test Item Value Reference Range Interpretation Comments STAIN ACCEPTABILITY (test code = STN ACCEPTABLE) CABOT RINGS (test code = CAB) MORPHOLOGY COMMENT (test code = MOC) PLATELET ESTIMATE (test code = PLTEST) PLATELET MORPHOLOGY (test code = PLTMORPH) CBC W/AUTO [id number] 05:08:00* Test Item Value Reference Range Interpretation [...] = MDIFF) NO, ONLY SCAN NEEDED DIFFERENTIAL [id number] 05:08:00* Test Item Value Reference Range Interpretation Comments STAIN ACCEPTABILITY (test code = STN ACCEPTABLE) CABOT RINGS (test code = CAB) MORPHOLOGY COMMENT (test code = MOC) PLATELET ESTIMATE (test code = PLTEST) PLATELET MORPHOLOGY (test code = PLTMORPH) CBC W/AUTO [id number] 05:08:00* Test Item Value Reference Range Interpretation [...] = MDIFF) NO, ONLY SCAN NEEDED DIFFERENTIAL [id number] 05:08:00* Test Item Value Reference Range Interpretation Comments STAIN ACCEPTABILITY (test code = STN ACCEPTABLE) MORPHOLOGY COMMENT (test code = MOC) PLATELET ESTIMATE (test code = PLTEST) PLATELET MORPHOLOGY (test code = PLTMORPH) CBC W/AUTO [id number] 05:08:00* Test Item Value Reference Range Interpretation [...] = MDIFF) NO, ONLY SCAN NEEDED DIFFERENTIAL [id number] 05:08:00* Test Item Value Reference Range Interpretation Comments STAIN ACCEPTABILITY (test code = STN ACCEPTABLE) CABOT RINGS (test code = CAB) MORPHOLOGY COMMENT (test code = MOC) PLATELET ESTIMATE (test code = PLTEST) PLATELET MORPHOLOGY (test code = PLTMORPH) [id number] 20:40:00* Test Item Value Reference Range Interpretation Comments GLUBED (test code = GLUBED) 160 mg/dL 74-106 H Performed by certified ripper operator at [facility] Coronavirus 2019 nCoV [id number] 18:50:00* Test Item Value Reference Range Interpretation Comments Coronavirus 2019 nCoV Bedside (test code = OMTVA05JMWII) Negative [id number] 16:03:00* Test Item Value Reference Range Interpretation Comments GLUBED (test code = GLUBED) 310 mg/dL 74-106 H Per[facility] certified ripper operator [facility] [id number] 11:57:00* Test Item Value Reference Range Interpretation Comments GLUBED (test code = GLUBED) 416 mg/dL 74-106 H Per[facility] by certified ripper operator [facility] [id number] 08:07:00* Test Item Value Reference Range Interpretation Comments GLUBED (test code = GLUBED) 356 mg/dL 74-106 H Per[facility] by certified ripper operator [facility] BASIC METABOLIC [id number] 04:53:00* Test Item Value Reference Range Interpretation [...] code = CA) 8.5 mg/dL 8.5-10.1 N [id number] 04:53:00* Test Item Value Reference Range Interpretation Comments MAGNESIUM (test code = MAG) 1.9 mg/dL 1.8-2.4 N [id number] 23:55:00* Test Item Value Reference Range Interpretation Comments GLUBED (test code = GLUBED) 391 mg/dL 74-106 H Performed by certified ripper operator at [facility] [id number] 20:25:00* Test Item Value Reference Range Interpretation Comments GLUBED (test code = GLUBED) 452 mg/dL 74-106 H [facility] certified ripper [facility] [id number] 20:15:00* Test Item Value Reference Range Interpretation Comments TROPONIN-I (test code = TROPI) <0.015 ng/mL 0-0.045 N COMMENTS TO HOUSEHOLD APPLIANCE MECHANIC: COLLECT 3 HOURS AFTER PREVIOUS [id number] 17:14:00* Test Item Value Reference Range Interpretation Comments TROPONIN-I (test code = TROPI) <0.015 ng/mL 0-0.045 N COMMENTS TO HOUSEHOLD APPLIANCE MECHANIC: COLLECT 3 HOURS AFTER PREVIOUS [id number] 15:52:00* Test Item Value Reference Range Interpretation Comments GLUBED (test code = GLUBED) 90 mg/dL 74-106 N Performed by certified ripper operator at [facility] B-TYPE NATRIURETIC [id number] 10:43:00* Test Item Value Reference Range Interpretation Comments B-TYPE NATRIURETIC PEPTIDE (test code = BNP) 120.97 pgram/mL 0-100 H BASIC METABOLIC [id number] 10:37:00* Test Item Value Reference Range Interpretation [...] code = CA) 8.8 mg/dL 8.5-10.1 N [id number] 10:37:00* Test Item Value Reference Range Interpretation Comments TROPONIN-I (test code = TROPI) <0.015 ng/mL 0-0.045 N PROTHROMBIN [id number] 10:25:00* Test Item Value Reference Range Interpretation [...] (2.5-3.5) IS PATIENT ON ANTICOAGULANTS? NTHROMBOPLASTIN TIME [id number] 10:25:00* Test Item Value Reference Range Interpretation Comments THROMBOPLASTIN TIME PARTIAL (test code = PTT) 22.9 seconds 23.0-37. 0 L IS PATIENT ON ANTICOAGULANTS? NBASIC METABOLIC [id number] 10:22:00* Test Item Value Reference Range Interpretation [...] CALCIUM (test code = CA) mg/dL 8.5-10.1 [id number] 10:22:00* Test Item Value Reference Range Interpretation Comments TROPONIN-I (test code = TROPI) ng/mL 0-0.045 CBC W/O [id number] 10:15:00* Test Item Value Reference Range Interpretation [...] fL 6.7-11.0 N - XR CHEST 1 [id number] 10:04:00 FAX: Hardeep Douglas [phone] [place]: [address]: [facility] FAX: Benjamin Francis MD [phone] Name: KALYANI TALAVERA [facility] : 1955 Age/S: 64/F [address] [facility] Unit #: [id number] Loc: [place] [address] Phys: Hardeep Ann MD Acct: [id number] Dis Date: Status: REG ER PHONE #: [phone] Exam Date: 11/20/2019928 FAX #: [phone] Reason: Shortness of Breath EXAMS: CPT CODE: [id number] XR CHEST 1 V 85242 REASON FOR EXAM: Shortness of Breath Exam Order Date: 11/20/2019 9:23 AM Ordering M.Ivelisse: Hardeep Ann MD PROCEDURE: - XR CHEST [...] elevation of the right hemidiaphragm. Location: [facility] at 1004 Reported and signed by: Dago Goodson MD CC: Hardeep Ann MD; Benjamin Masters Technologist: SUSAN HAMMONDS JR Trnscrd Date/Time/By: 0 (1004) : By: [email or web address] Orig Print D/T: S: 11/20/2019 (1007) PAGE 1 Signed Report BASIC METABOLIC [id number] 15:36:00* Test Item Value Reference Range Interpretation [...] CA) 8.5 mg/dL 8.5-10.1 N BASIC METABOLIC [id number] 15:32:00* Test Item Value Reference Range Interpretation [...] CALCIUM (test code = CA) mg/dL 8.5-10.1 [id number] 11:56:00* Test Item Value Reference Range Interpretation Comments GLUBED (test code = GLUBED) 268 mg/dL 74-106 H Performed by certified ripper operator at [facility] [id number] 08:34:00* Test Item Value Reference Range Interpretation Comments GLUBED (test code = GLUBED) 213 mg/dL 74-106 H Performed by certified ripper operator at [facility] COMPREHENSIVE METABOLIC [id number] 06:54:00* Test Item Value Reference Range Interpretation [...] due to change in reagent. COMPREHENSIVE METABOLIC [id number] 06:39:00* Test Item Value Reference Range Interpretation [...] TOTAL (test code = ALKP) IUnit/L 45-117 [id number] 19:31:00* Test Item Value Reference Range Interpretation Comments GLUBED (test code = GLUBED) 307 mg/dL 74-106 H Performed by certified ripper operator at [facility] BASIC METABOLIC [id number] 16:35:00* Test Item Value Reference Range Interpretation [...] CA) 8.9 mg/dL 8.5-10.1 N BASIC METABOLIC [id number] 16:30:00* Test Item Value Reference Range Interpretation [...] CALCIUM (test code = CA) mg/dL 8.5-10.1 [id number] 15:31:00* Test Item Value Reference Range Interpretation Comments GLUBED (test code = GLUBED) 155 mg/dL 74-106 H Performed by certified ripper operator at [facility] [id number] 11:44:00* Test Item Value Reference Range Interpretation Comments GLUBED (test code = GLUBED) 180 mg/dL 74-106 H Performed by certified ripper operator at [facility] [id number] 08:05:00* Test Item Value Reference Range Interpretation Comments GLUBED (test code = GLUBED) 236 mg/dL 74-106 H Performed by certified ripper operator at [facility] COMPREHENSIVE METABOLIC [id number] 04:48:00* Test Item Value Reference Range Interpretation [...] due to change in reagent. COMPREHENSIVE METABOLIC [id number] 04:35:00* Test Item Value Reference Range Interpretation [...] TOTAL (test code = ALKP) IUnit/L 45-117 [id number] 20:09:00* Test Item Value Reference Range Interpretation Comments GLUBED (test code = GLUBED) 126 mg/dL 74-106 H Performed by certified ripper operator at [facility] [id number] 15:38:00* Test Item Value Reference Range Interpretation Comments GLUBED (test code = GLUBED) 241 mg/dL 74-106 H Performed by certified ripper operator at [facility] [id number] 11:39:00* Test Item Value Reference Range Interpretation Comments GLUBED (test code = GLUBED) 406 mg/dL 74-106 H Performed by certified ripper operator at [facility] [id number] 07:56:00* Test Item Value Reference Range Interpretation Comments GLUBED (test code = GLUBED) 318 mg/dL 74-106 H Performed by certified ripper operator at [facility] COMPREHENSIVE METABOLIC [id number] 04:33:00* Test Item Value Reference Range Interpretation [...] due to change in reagent. COMPREHENSIVE METABOLIC [id number] 04:24:00* Test Item Value Reference Range Interpretation [...] TOTAL (test code = ALKP) IUnit/L 45-117 [id number] 22:02:00* Test Item Value Reference Range Interpretation Comments GLUBED (test code = GLUBED) 108 mg/dL 74-106 H Performed by certified ripper operator at [facility] [id number] 19:58:00* Test Item Value Reference Range Interpretation Comments GLUBED (test code = GLUBED) 117 mg/dL 74-106 H Performed by certified ripper operator at [facility] [id number] 11:46:00* Test Item Value Reference Range Interpretation Comments GLUBED (test code = GLUBED) 277 mg/dL 74-106 H Performed by certified ripper operator at [facility] [id number] 11:46:00* Test Item Value Reference Range Interpretation Comments GLUBED (test code = GLUBED) 286 mg/dL 74-106 H Performed by certified ripper operator at [facility] [id number] 04:37:00* Test Item Value Reference Range Interpretation Comments FERRITIN (test code = DESI) 14 ng/mL 8-388 N FE W/TOTAL IRON BINDING CAP.2019-10-21 04:28:00* Test Item Value Reference Range Interpretation Comments SERUM IRON (test code = IRON) 65 ug/dL 50-175 N TOTAL IRON BINDING CAPACITY (test code = TIBC) 532 mcg/dL 250-450 H IRON SATURATION (test code = FESAT) 12.22 % 13-45 L [id number] 03:52:00* Test Item Value Reference Range Interpretation Comments GLUBED (test code = GLUBED) 287 mg/dL 74-106 H [facility] [id number] 20:27:00* Test Item Value Reference Range Interpretation Comments GLUBED (test code = GLUBED) 132 mg/dL 74-106 H Performed by certified ripper operator [facility] [facility]~ [id number] 17:34:00* Test Item Value Reference Range Interpretation Comments GLUBED (test code = GLUBED) 167 mg/dL 74-106 H Performed by certified ripper operator at [facility] [id number] 12:06:00* Test Item Value Reference Range Interpretation Comments GLUBED (test code = GLUBED) 271 mg/dL 74-106 H Performed by certified ripper operator at [facility] - XR CHEST 1 [id number] 08:35:00 FAX: Rigo Mccormick MD [phone] [place]: St: [facility] FAX: Benjamin Francis MD [phone] Name: KALYANI TALAVERA [facility] : 1955 Age/S: 64/F [address] [facility] Unit #: [id number] Loc: V.4006 [place] [address] Phys: Rigo Alexander MD Acct: [id number] Dis Date: Status: ADM IN PHONE #: [phone] Exam Date: 10/20/2019829 FAX #: [phone] Reason: chf EXAMS: CPT CODE: [id number] XR CHEST 1 V 02821 CLINICAL HISTORY: chf TECHNIQUE: AP chest x-ray COMPARISON: 10/18/19 IMPRESSION: No significant interval change. Low lung volumes with bibasilar subsegmental atelectasis. No airspace consolidation or pleural effusion. Elevated right hemidiaphragm. Cardiomegaly. Mediastinal silhouette is unremarkable. LOCATION: [facility] Dave ctronically Signed by Kary Camacho D.O. on 10/20/2019 at 0835 Reported and signed by: Kary Camacho D.O. CC: Rigo Alexander MD; Benjamin Masters Technologist: TAWANNA CLEMENTS(R) Trnscrd Date/Time/By: 10/20/2019 (0835) : By: aniyah [email or web address] Orig Print D/T: S: 10/20/2019 (0838) P AGE 2 Signed Report GLUBED 2019-10-20 08:30:00* Test Item Value Reference Range Interpretation Comments GLUBED (test code = GLUBED) 234 mg/dL 74-106 H Performed by certified ripper operator at [facility] CBC W/AUTO [id number] 05:46:00* Test Item Value Reference Range Interpretation [...] = MDIFF) NO, ONLY SCAN NEEDED DIFFERENTIAL [id number] 05:46:00* Test Item Value Reference Range Interpretation [...] (test code = PLTMORPH) NORMAL BASIC METABOLIC [id number] 05:36:00* Test Item Value Reference Range Interpretation [...] CA) 9.4 mg/dL 8.5-10.1 N BASIC METABOLIC [id number] 05:30:00* Test Item Value Reference Range Interpretation [...] code = CA) mg/dL 8.5-10.1 CBC W/AUTO [id number] 05:11:00* Test Item Value Reference Range Interpretation [...] = MDIFF) NO, ONLY SCAN NEEDED DIFFERENTIAL [id number] 05:11:00* Test Item Value Reference Range Interpretation Comments STAIN ACCEPTABILITY (test code = STN ACCEPTABLE) CABOT RINGS (test code = CAB) MORPHOLOGY COMMENT (test code = MOC) PLATELET ESTIMATE (test code = PLTEST) PLATELET MORPHOLOGY (test code = PLTMORPH) CBC W/AUTO [id number] 05:11:00* Test Item Value Reference Range Interpretation [...] = MDIFF) NO, ONLY SCAN NEEDED DIFFERENTIAL [id number] 05:11:00* Test Item Value Reference Range Interpretation Comments STAIN ACCEPTABILITY (test code = STN ACCEPTABLE) CABOT RINGS (test code = CAB) MORPHOLOGY COMMENT (test code = MOC) PLATELET ESTIMATE (test code = PLTEST) PLATELET MORPHOLOGY (test code = PLTMORPH) CBC W/AUTO [id number] 05:11:00* Test Item Value Reference Range Interpretation [...] = MDIFF) NO, ONLY SCAN NEEDED DIFFERENTIAL [id number] 05:11:00* Test Item Value Reference Range Interpretation Comments STAIN ACCEPTABILITY (test code = STN ACCEPTABLE) MORPHOLOGY COMMENT (test code = MOC) PLATELET ESTIMATE (test code = PLTEST) PLATELET MORPHOLOGY (test code = PLTMORPH) CBC W/AUTO [id number] 05:11:00* Test Item Value Reference Range Interpretation [...] = MDIFF) NO, ONLY SCAN NEEDED DIFFERENTIAL [id number] 05:11:00* Test Item Value Reference Range Interpretation Comments STAIN ACCEPTABILITY (test code = STN ACCEPTABLE) CABOT RINGS (test code = CAB) MORPHOLOGY COMMENT (test code = MOC) PLATELET ESTIMATE (test code = PLTEST) PLATELET MORPHOLOGY (test code = PLTMORPH) [id number] 19:55:00* Test Item Value Reference Range Interpretation Comments GLUBED (test code = GLUBED) 245 mg/dL 74-106 H Performed by certified ripper operator at [facility] [id number] 17:25:00* Test Item Value Reference Range Interpretation Comments GLUBED (test code = GLUBED) 316 mg/dL 74-106 H Performed by certified ripper operator at [facility] [id number] 12:03:00* Test Item Value Reference Range Interpretation Comments GLUBED (test code = GLUBED) 266 mg/dL 74-106 H Performed by certified ripper operator at [facility] [id number] 11:55:00* Test Item Value Reference Range Interpretation Comments GLUBED (test code = GLUBED) 300 mg/dL 74-106 H Performed by certified ripper operator at [facility] COMPREHENSIVE METABOLIC [id number] 04:36:00* Test Item Value Reference Range Interpretation [...] due to change in reagent. COMPREHENSIVE METABOLIC [id number] 04:25:00* Test Item Value Reference Range Interpretation [...] TOTAL (test code = ALKP) IUnit/L 45-117 [id number] 20:30:00* Test Item Value Reference Range Interpretation Comments GLUBED (test code = GLUBED) 202 mg/dL 74-106 H [facility] [id number] 18:41:00* Test Item Value Reference Range Interpretation Comments GLUBED (test code = GLUBED) 229 mg/dL 74-106 H Performed by certified ripper operator at [facility] [id number] 15:56:00* Test Item Value Reference Range Interpretation Comments GLUBED (test code = GLUBED) 271 mg/dL 74-106 H Performed by certified ripper operator at [facility] [id number] 15:00:00* Test Item Value Reference Range Interpretation Comments GLYCOSYLATED HEMOGLOBIN (HA1C) (test code = GLYHGB) 9.6 % HbA1 SUGGESTED DIAGNOSIS: HbA1C (%) Diabetic >6.4Prediabetes 5.7 - 6.4Normal <5.7 ESTIMATED AVERAGE GLUCOSE (test code = EAG) 229 MG/DL [id number] 11:26:00* Test Item Value Reference Range Interpretation Comments GLUBED (test code = GLUBED) 372 mg/dL 74-106 H Performed by certified ripper operator at [facility] - XR CHEST 1 [id number] 08:31:00 FAX: Rigo Mccormick MD [phone] [place]: St: [facility] FAX: Benjamin Francis MD [phone] Name: KALYANI TALAVERA [facility] : 1955 Age/S: 64/F [address] Unit #: [id number] Loc: V.[address] [place] [address] Phys: Rigo Alexander MD Acct: [id number] Dis Date: Status: ADM IN PHONE #: [phone] Exam Date: 10/18/2019 0801 FAX #: [phone] Reason: chf EXAMS: CPT CODE: [id number] XR CHEST 1 V 46859 REASON FOR EXAM: chf Exam Order Date: 10/18/2019 5:00 AM Ordering MSamantha: Rigo Alexander MD PROCEDURE: - XR CHEST [...] IMPRESSION: No acute cardiopulmonary process. Location: [facility] Electronic ally Signed by Dago Goodson MD on 10/18/2019 at 0831 Repo rted and signed by: Dago Goodson MD CC: Rigo Alexander MD; Benjamin Masters Technologist: SUSAN HAMMONDS JR Trnscrd Date/Time/By: 10/18/2019 (830) : By: [email or web address] Orig Print D/T: S: 10/18/2019 (5291) PAGE 1 Signed Report [id number] 07:40:00 * Test Item Value Reference Range Interpretation Comments GLUBED (test code = GLUBED) 391 mg/dL 74-106 H Performed by certified ripper operator at [facility] COMPREHENSIVE METABOLIC [id number] 04:54:00* Test Item Value Reference Range Interpretation [...] reference range due to change in reagent. [id number] 04:54:00* Test Item Value Reference Range Interpretation Comments MAGNESIUM (test code = MAG) 1.8 mg/dL 1.8-2.4 N COMPREHENSIVE METABOLIC [id number] 04:45:00* Test Item Value Reference Range Interpretation [...] TOTAL (test code = ALKP) IUnit/L 45-117 [id number] 04:45:00* Test Item Value Reference Range Interpretation Comments MAGNESIUM (test code = MAG) mg/dL 1.8-2.4 CBC W/AUTO [id number] 04:28:00* Test Item Value Reference Range Interpretation [...] code = NRBC#) 0.00 K/mm3 0.0-0.1 N [id number] 23:49:00* Test Item Value Reference Range Interpretation Comments TROPONIN-I (test code = TROPI) 0.024 ng/mL 0-0.045 N COMMENTS TO HOUSEHOLD 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: COLLECT 3 HOURS AFTER PREVIOUS [id number] 20:30:00* Test Item Value Reference Range Interpretation Comments GLUBED (test code = GLUBED) 288 mg/dL 74-106 H Performed by certified ripper operator at [facility] [id number] 19:35:00* Test Item Value Reference Range Interpretation Comments TROPONIN-I (test code = TROPI) 0.027 ng/mL 0-0.045 N COMMENTS TO HOUSEHOLD APPLIANCE MECHANIC: COLLECT 3 HOURS AFTER PREVIOUS SAMPLE- CT CHEST W/O [id number] 18:12:00 Name: KALYANI TALAVERA [facility] : 1955 Age/S: 64 / F [address] [facility] Unit #: [id number] Loc: [place] [address] Phys: Pravin Christianson MD Acct: [id number] Dis Date: Status: ADM IN PHONE #: [phone] Exam Date: 10/17/2019 1800 FAX #: [phone] Reason: Dyspnea, Crackles in bases EXAMS: CPT CODE: [id number] CT CHEST W/O CONTRAST 76823 HISTORY: Dyspnea and crackles in the base. [...] 10/17/2019 (1811) t.SDR.TH4 PAGE 1 Signed Report [id number] 17:25:00* Test Item Value Reference Range Interpretation Comments MAGNESIUM (test code = MAG) 1.8 mg/dL 1.8-2.4 N [id number] 16:20:00* Test Item Value Reference Range Interpretation Comments GLUBED (test code = GLUBED) 221 mg/dL 74-106 H Performed by certified ripper operator at [facility] B-TYPE NATRIURETIC [id number] 10:56:00* Test Item Value Reference Range Interpretation Comments B-TYPE NATRIURETIC PEPTIDE (test code = BNP) 58.67 pgram/mL 0-100 N BASIC METABOLIC [id number] 10:25:00* Test Item Value Reference Range Interpretation [...] code = CA) 8.6 mg/dL 8.5-10.1 N [id number] 10:25:00* Test Item Value Reference Range Interpretation Comments TROPONIN-I (test code = TROPI) 0.025 ng/mL 0-0.045 N BASIC METABOLIC [id number] 10:15:00* Test Item Value Reference Range Interpretation [...] CALCIUM (test code = CA) mg/dL 8.5-10.1 [id number] 10:15:00* Test Item Value Reference Range Interpretation Comments TROPONIN-I (test code = TROPI) ng/mL 0-0.045 CBC W/O [id number] 09:54:00* Test Item Value Reference Range Interpretation [...] fL 6.7-11.0 N - XR CHEST 1 [id number] 09:54:00 FAX: Patel Kulkarni MD [place]: St: PRE FAX: Benjamin Francis MD [phone] Name: KALYANI TALAVERA [facility] : 1955 Age/S: 64/F [address] [facility] Unit #: [id number] Loc: [place] [address] Phys: Patel Kulkarni MD Acct: [id number] Dis Date: Status: PRE ER PHONE #: [phone] Exam Date: 10/17/2019 0946 FAX #: [phone] Reason: Shortness of Breath EXAMS: CPT CODE: [id number] XR CHEST 1 V 65946 CLINICAL HISTORY: Shortness of Breath TECHNIQUE: AP [...] Technologist: Marci Leyva(Megan) Trnscrd Date/Time/By: 10/17/19 20 (3544) : By: [email or web address] Orig Print D/T: S: 10/17/2019 (2401) PAGE 1 Signed Report [id number] 15:30:00* Test Item Value Reference Range Interpretation Comments GLUBED (test code = GLUBED) 138 mg/dL 74-106 H Performed by certified ripper operator at [facility] COMPREHENSIVE METABOLIC [id number] 14:28:00* Test Item Value Reference Range Interpretation [...] due to change in reagent. COMPREHENSIVE METABOLIC [id number] 14:18:00* Test Item Value Reference Range Interpretation [...] code = ALKP) IUnit/L 45-117 CBC W/AUTO [id number] 13:43:00* Test Item Value Reference Range Interpretation [...] NRBC#) 0.02 K/mm3 0.0-0.1 N CBC W/AUTO [id number] 13:37:00* Test Item Value Reference Range Interpretation [...] # (test code = BA#) K/mm3 0.0-0.2 [id number] 12:24:00* Test Item Value Reference Range Interpretation Comments GLUBED (test code = GLUBED) 142 mg/dL 74-106 H Performed by certified ripper operator at [facility] [id number] 07:57:00* Test Item Value Reference Range Interpretation Comments GLUBED (test code = GLUBED) 221 mg/dL 74-106 H Performed by certified ripper operator at [facility] - XR CHEST 1 [id number] 21:23:00 FAX: Alfa Moscoso MD [phone] [place]: St: [facility] FAX: Benjamin Francis MD [phone] Name: KALYANI TALAVERA [facility] : 1955 Age/S: 64/F [address] [facility] Unit #: [id number] Loc: V.[address] [place] [address] Phys: Alfa Cassidy MD Acct: [id number] Dis Date: Status: ADM IN PHONE #: [phone] Exam Date: 09/07/20192048 FAX #: [phone] Reason: ACUTE CHF EXAMS: CPT CODE: [id number] XR CHEST 1 V 32313 CLINICAL HISTORY: ACUTE CHF TECHNIQUE: AP chest [...] S: 09/07/2019 (2125) PAGE 1 Signed Report [id number] 20:44:00* Test Item Value Reference Range Interpretation Comments GLUBED (test code = GLUBED) 176 mg/dL 74-106 H Performed by certified ripper operator at [facility] CBC W/AUTO [id number] 17:54:00* Test Item Value Reference Range Interpretation [...] = MDIFF) NO, ONLY SCAN NEEDED DIFFERENTIAL [id number] 17:54:00* Test Item Value Reference Range Interpretation Comments STAIN ACCEPTABILITY (test code = STN ACCEPTABLE) STAIN ACCEPTABLE ANISOCYTOSIS (test code = ANISO) 1+ PLATELET ESTIMATE (test code = PLTEST) DECREASED PLATELET MORPHOLOGY (test code = PLTMORPH) NORMAL COMPREHENSIVE METABOLIC [id number] 17:01:00* Test Item Value Reference Range Interpretation [...] reference range due to change in reagent. [id number] 17:00:00* Test Item Value Reference Range Interpretation Comments GLUBED (test code = GLUBED) 270 mg/dL 74-106 H Performed by certified ripper operator at [facility] B-TYPE NATRIURETIC [id number] 17:00:00* Test Item Value Reference Range Interpretation Comments B-TYPE NATRIURETIC PEPTIDE (test code = BNP) 33.15 pgram/mL 0-100 N CBC W/AUTO [id number] 16:55:00* Test Item Value Reference Range Interpretation [...] = MDIFF) NO, ONLY SCAN NEEDED DIFFERENTIAL [id number] 16:55:00* Test Item Value Reference Range Interpretation Comments STAIN ACCEPTABILITY (test code = STN ACCEPTABLE) CABOT RINGS (test code = CAB) MORPHOLOGY COMMENT (test code = MOC) PLATELET ESTIMATE (test code = PLTEST) PLATELET MORPHOLOGY (test code = PLTMORPH) CBC W/AUTO [id number] 16:55:00* Test Item Value Reference Range Interpretation [...] = MDIFF) NO, ONLY SCAN NEEDED DIFFERENTIAL [id number] 16:55:00* Test Item Value Reference Range Interpretation Comments STAIN ACCEPTABILITY (test code = STN ACCEPTABLE) CABOT RINGS (test code = CAB) MORPHOLOGY COMMENT (test code = MOC) PLATELET ESTIMATE (test code = PLTEST) PLATELET MORPHOLOGY (test code = PLTMORPH) CBC W/AUTO [id number] 16:55:00* Test Item Value Reference Range Interpretation [...] = MDIFF) NO, ONLY SCAN NEEDED DIFFERENTIAL [id number] 16:55:00* Test Item Value Reference Range Interpretation Comments STAIN ACCEPTABILITY (test code = STN ACCEPTABLE) MORPHOLOGY COMMENT (test code = MOC) PLATELET ESTIMATE (test code = PLTEST) PLATELET MORPHOLOGY (test code = PLTMORPH) CBC W/AUTO [id number] 16:55:00* Test Item Value Reference Range Interpretation [...] = MDIFF) NO, ONLY SCAN NEEDED DIFFERENTIAL [id number] 16:55:00* Test Item Value Reference Range Interpretation Comments STAIN ACCEPTABILITY (test code = STN ACCEPTABLE) CABOT RINGS (test code = CAB) MORPHOLOGY COMMENT (test code = MOC) PLATELET ESTIMATE (test code = PLTEST) PLATELET MORPHOLOGY (test code = PLTMORPH) CBC W/AUTO [id number] 16:49:00* Test Item Value Reference Range Interpretation [...] code = BA#) K/mm3 0.0-0.2 COMPREHENSIVE METABOLIC [id number] 16:49:00* Test Item Value Reference Range Interpretation [...] TOTAL (test code = ALKP) IUnit/L 45-117 [id number] 12:09:00* Test Item Value Reference Range Interpretation Comments GLUBED (test code = GLUBED) 219 mg/dL 74-106 H Performed by certified ripper operator at [facility] [id number] 08:21:00* Test Item Value Reference Range Interpretation Comments GLUBED (test code = GLUBED) 249 mg/dL 74-106 H Performed by certified ripper operator at [facility] BASIC METABOLIC [id number] 06:22:00* Test Item Value Reference Range Interpretation [...] code = CA) 8.6 mg/dL 8.5-10.1 N [id number] 20:04:00* Test Item Value Reference Range Interpretation Comments GLUBED (test code = GLUBED) 282 mg/dL 74-106 H Performed by certified ripper operator at [facility] [id number] 17:10:00* Test Item Value Reference Range Interpretation Comments GLUBED (test code = GLUBED) 210 mg/dL 74-106 H Performed by certified ripper operator at [facility] [id number] 11:31:00* Test Item Value Reference Range Interpretation Comments GLUBED (test code = GLUBED) 179 mg/dL 74-106 H Performed by certified ripper operator at [facility] BASIC METABOLIC [id number] 09:04:00* Test Item Value Reference Range Interpretation [...] CA) 8.7 mg/dL 8.5-10.1 N BASIC METABOLIC [id number] 08:59:00* Test Item Value Reference Range Interpretation [...] CALCIUM (test code = CA) mg/dL 8.5-10.1 [id number] 08:24:00* Test Item Value Reference Range Interpretation Comments GLUBED (test code = GLUBED) 201 mg/dL 74-106 H Performed by certified ripper operator at [facility] [id number] 21:07:00* Test Item Value Reference Range Interpretation Comments GLUBED (test code = GLUBED) 185 mg/dL 74-106 H Performed by certified ripper operator at [facility] [id number] 20:21:00* Test Item Value Reference Range Interpretation Comments GLUBED (test code = GLUBED) 168 mg/dL 74-106 H Performed by certified ripper operator at [facility] [id number] 17:21:00* Test Item Value Reference Range Interpretation Comments GLUBED (test code = GLUBED) 104 mg/dL 74-106 N Performed by certified ripper operator at [facility] [id number] 11:54:00* Test Item Value Reference Range Interpretation Comments GLUBED (test code = GLUBED) 207 mg/dL 74-106 H Performed by certified ripper operator at [facility] [id number] 10:26:00* Test Item Value Reference Range Interpretation Comments GLUBED (test code = GLUBED) 266 mg/dL 74-106 H Performed by certified ripper operator at [facility] BASIC METABOLIC [id number] 08:10:00* Test Item Value Reference Range Interpretation [...] CA) 8.5 mg/dL 8.5-10.1 N BASIC METABOLIC [id number] 08:01:00* Test Item Value Reference Range Interpretation [...] CALCIUM (test code = CA) mg/dL 8.5-10.1 [id number] 20:13:00* Test Item Value Reference Range Interpretation Comments GLUBED (test code = GLUBED) 280 mg/dL 74-106 H Performed by certified ripper operator at [facility] URINALYSIS [id number] 18:55:00* Test Item Value Reference Range Interpretation [...] NEGATIVE UA PH DIPSTICK (test code = VVIEK) 5.0 5.0-8.0 UA PROTEIN DIPSTICK (test code [...] #/LPF FEW BY V.LAB.THSPECIMEN COMMENTS: urineUrine Source? [id number] 16:55:00* Test Item Value Reference Range Interpretation Comments GLUBED (test code = GLUBED) 151 mg/dL 74-106 H Performed by certified ripper operator at [facility] [id number] 15:39:00* Test Item Value Reference Range Interpretation Comments GLUBED (test code = GLUBED) 264 mg/dL 74-106 H Performed by certified ripper operator at [facility] CBC W/AUTO [id number] 11:09:00* Test Item Value Reference Range Interpretation [...] = MDIFF) NO, ONLY SCAN NEEDED DIFFERENTIAL [id number] 11:09:00* Test Item Value Reference Range Interpretation Comments STAIN ACCEPTABILITY (test code = STN ACCEPTABLE) STAIN ACCEPTABLE HYPOCHROMIA (test code = HYPO) 1+ ANISOCYTOSIS (test code = ANISO) 1+ PLATELET ESTIMATE (test code = PLTEST) SLIGHTLY DECREASED PLATELET MORPHOLOGY (test code = PLTMORPH) NORMAL CBC W/AUTO [id number] 10:19:00* Test Item Value Reference Range Interpretation [...] = MDIFF) NO, ONLY SCAN NEEDED DIFFERENTIAL [id number] 10:19:00* Test Item Value Reference Range Interpretation Comments STAIN ACCEPTABILITY (test code = STN ACCEPTABLE) MORPHOLOGY COMMENT (test code = MOC) PLATELET ESTIMATE (test code = PLTEST) PLATELET MORPHOLOGY (test code = PLTMORPH) CBC W/AUTO [id number] 10:15:00* Test Item Value Reference Range Interpretation [...] = MDIFF) NO, ONLY SCAN NEEDED DIFFERENTIAL [id number] 10:15:00* Test Item Value Reference Range Interpretation Comments STAIN ACCEPTABILITY (test code = STN ACCEPTABLE) CABOT RINGS (test code = CAB) MORPHOLOGY COMMENT (test code = MOC) PLATELET ESTIMATE (test code = PLTEST) PLATELET MORPHOLOGY (test code = PLTMORPH) CBC W/AUTO [id number] 10:15:00* Test Item Value Reference Range Interpretation [...] = MDIFF) NO, ONLY SCAN NEEDED DIFFERENTIAL [id number] 10:15:00* Test Item Value Reference Range Interpretation Comments STAIN ACCEPTABILITY (test code = STN ACCEPTABLE) MORPHOLOGY COMMENT (test code = MOC) PLATELET ESTIMATE (test code = PLTEST) PLATELET MORPHOLOGY (test code = PLTMORPH) CBC W/AUTO [id number] 10:15:00* Test Item Value Reference Range Interpretation [...] = MDIFF) NO, ONLY SCAN NEEDED DIFFERENTIAL [id number] 10:15:00* Test Item Value Reference Range Interpretation Comments STAIN ACCEPTABILITY (test code = STN ACCEPTABLE) CABOT RINGS (test code = CAB) MORPHOLOGY COMMENT (test code = MOC) PLATELET ESTIMATE (test code = PLTEST) PLATELET MORPHOLOGY (test code = PLTMORPH) CBC W/AUTO [id number] 10:00:00* Test Item Value Reference Range Interpretation [...] # (test code = BA#) K/mm3 0.0-0.2 [id number] 08:44:00* Test Item Value Reference Range Interpretation Comments GLUBED (test code = GLUBED) 305 mg/dL 74-106 H Performed by certified ripper operator at [facility] BASIC METABOLIC [id number] 08:31:00* Test Item Value Reference Range Interpretation [...] code = CA) 8.0 mg/dL 8.5-10.1 L [id number] 20:37:00* Test Item Value Reference Range Interpretation Comments GLUBED (test code = GLUBED) 200 mg/dL 74-106 H Performed by certified ripper operator at [facility] - XR CHEST 1 [id number] 18:15:00 FAX: Benjamin Francis MD [phone] [place]: B St: ADM Name: KALYANI CATES [facility] : [birth year] Age/S: 64/F [address] Unit #: [id number] Loc: V.[address] [place] [address] Phys: Benjamin Masters MD Acct: [id number] Dis Date: Status: ADM IN PHONE #: [phone] Exam Date: 09/03/2019 1615 FAX #: [phone] Reason: CHF EXAMS: CPT CODE: [id number] XR CHEST 1 V 74465 EXAM: Chest x-ray, one view; INFORMATION: CHF, hypoglycemia; IMPRESSION: 1. Mild cardiomegaly; otherwise, no evidence of active cardiopulmonary disease. 2. No significant change compared with a study from August 28, 2019. Location code: [facility] at 1815 Reported and signed by: Jc Bravo M.D. CC: Benjamin Masters Technologist: WENDIE COMER, RT(R); Jacquie Alcantara RT(R) Trnscrd Date/Time/By: 09/03/2019 (1814) : By: LeanneGRW Orig Print D/T: S: 09/03/2019 (1817) PAGE 1 Signed Report [id number] 17:28:00* Test Item Value Reference Range Interpretation Comments GLUBED (test code = GLUBED) 103 mg/dL 74-106 N Performed by certified ripper operator at [facility] [id number] 12:43:00* Test Item Value Reference Range Interpretation Comments GLUBED (test code = GLUBED) 201 mg/dL 74-106 H Performed by certified ripper operator at [facility] B-TYPE NATRIURETIC [id number] 12:25:00* Test Item Value Reference Range Interpretation Comments B-TYPE NATRIURETIC PEPTIDE (test code = BNP) 20.62 pgram/mL 0-100 N SPECIMEN COMMENTS: add to AM labsBASIC METABOLIC [id number] 09:49:00* Test Item Value Reference Range Interpretation [...] code = CA) 8.3 mg/dL 8.5-10.1 L [id number] 08:23:00* Test Item Value Reference Range Interpretation Comments GLUBED (test code = GLUBED) 242 mg/dL 74-106 H Performed by certified ripper operator at [facility] [id number] 20:51:00* Test Item Value Reference Range Interpretation Comments GLUBED (test code = GLUBED) 155 mg/dL 74-106 H Performed by certified ripper operator at [facility] [id number] 16:25:00* Test Item Value Reference Range Interpretation Comments GLUBED (test code = GLUBED) 245 mg/dL 74-106 H Performed by certified ripper operator at [facility] [id number] 14:55:00* Test Item Value Reference Range Interpretation Comments MAGNESIUM (test code = MAG) 1.8 mg/dL 1.8-2.4 N COMPREHENSIVE METABOLIC [id number] 13:39:00* Test Item Value Reference Range Interpretation [...] due to change in reagent. COMPREHENSIVE METABOLIC [id number] 13:31:00* Test Item Value Reference Range Interpretation [...] code = ALKP) IUnit/L 45-117 CBC W/AUTO [id number] 12:41:00* Test Item Value Reference Range Interpretation [...] NRBC#) 0.00 K/mm3 0.0-0.1 N CBC W/AUTO [id number] 12:32:00* Test Item Value Reference Range Interpretation [...] # (test code = BA#) K/mm3 0.0-0.2 [id number] 11:40:00* Test Item Value Reference Range Interpretation Comments GLUBED (test code = GLUBED) 252 mg/dL 74-106 H Performed by certified ripper operator at [facility] [id number] 08:02:00* Test Item Value Reference Range Interpretation Comments GLUBED (test code = GLUBED) 252 mg/dL 74-106 H Performed by certified ripper operator at [facility] [id number] 20:04:00* Test Item Value Reference Range Interpretation Comments GLUBED (test code = GLUBED) 183 mg/dL 74-106 H Performed by certified ripper operator at [facility] [id number] 18:42:00* Test Item Value Reference Range Interpretation Comments GLUBED (test code = GLUBED) 218 mg/dL 74-106 H Performed by certified ripper operator at [facility] [id number] 12:24:00* Test Item Value Reference Range Interpretation Comments GLUBED (test code = GLUBED) 281 mg/dL 74-106 H Performed by certified ripper operator at [facility] [id number] 08:29:00* Test Item Value Reference Range Interpretation Comments GLUBED (test code = GLUBED) 293 mg/dL 74-106 H Performed by certified ripper operator at [facility] [id number] 20:21:00* Test Item Value Reference Range Interpretation Comments GLUBED (test code = GLUBED) 236 mg/dL 74-106 H Performed by certified ripper operator at [facility] [id number] 17:17:00* Test Item Value Reference Range Interpretation Comments GLUBED (test code = GLUBED) 311 mg/dL 74-106 H Performed by certified ripper operator at [facility] [id number] 12:22:00* Test Item Value Reference Range Interpretation Comments GLUBED (test code = GLUBED) 230 mg/dL 74-106 H Performed by certified ripper operator at [facility] [id number] 08:34:00* Test Item Value Reference Range Interpretation Comments GLUBED (test code = GLUBED) 301 mg/dL 74-106 H Performed by certified ripper operator at [facility] BASIC METABOLIC [id number] 06:15:00* Test Item Value Reference Range Interpretation [...] CA) 8.6 mg/dL 8.5-10.1 N BASIC METABOLIC [id number] 06:12:00* Test Item Value Reference Range Interpretation [...] code = CA) 8.6 mg/dL 8.5-10.1 N [id number] 20:44:00* Test Item Value Reference Range Interpretation Comments GLUBED (test code = GLUBED) 304 mg/dL 74-106 H Performed by certified ripper operator at [facility] [id number] 17:42:00* Test Item Value Reference Range Interpretation Comments MAGNESIUM (test code = MAG) 1.8 mg/dL 1.8-2.4 N [id number] 17:25:00* Test Item Value Reference Range Interpretation Comments GLUBED (test code = GLUBED) 196 mg/dL 74-106 H Performed by certified ripper operator at [facility] [id number] 12:10:00* Test Item Value Reference Range Interpretation Comments GLUBED (test code = GLUBED) 223 mg/dL 74-106 H Performed by certified ripper operator at [facility] BASIC METABOLIC [id number] 07:59:00* Test Item Value Reference Range Interpretation [...] code = CA) 8.6 mg/dL 8.5-10.1 N [id number] 07:59:00* Test Item Value Reference Range Interpretation Comments MAGNESIUM (test code = MAG) 1.8 mg/dL 1.8-2.4 N [id number] 07:54:00* Test Item Value Reference Range Interpretation Comments GLUBED (test code = GLUBED) 232 mg/dL 74-106 H Performed by certified ripper operator at [facility] BASIC METABOLIC [id number] 07:35:00* Test Item Value Reference Range Interpretation [...] CALCIUM (test code = CA) mg/dL 8.5-10.1 [id number] 07:35:00* Test Item Value Reference Range Interpretation Comments MAGNESIUM (test code = MAG) mg/dL 1.8-2.4 [id number] 20:33:00* Test Item Value Reference Range Interpretation Comments GLUBED (test code = GLUBED) 161 mg/dL 74-106 H Performed by certified ripper operator at [facility] [id number] 16:15:00* Test Item Value Reference Range Interpretation Comments GLUBED (test code = GLUBED) 137 mg/dL 74-106 H Performed by certified ripper operator at [facility] [id number] 15:50:00 RUN DATE: 08/29/19 [facility] - Lab PAGE 1 RUN TIME: 1550 Specimen Inqui ry RUN USER: INTERFACE PATIENT: KALYANI TALAVERA ACCT #: [id number] LOC: LAUREN U #: [id number] AGE/SX: 64/F ROOM: [facility] RE08/29/19[facility] DR: Benjamin Masters MD : 57 BED: A DIS: STATUS: ADM IN TLOC: SPEC #: [id number] RECD: 08/28/19 STATUS: SHREYA BROWN #: [id number] MARILEE: 08/27/19- SUBM DR: Emil Martinez MD ENTERED: 08/28/19 SP TYPE: STOMACH OTHR DR: Beatrice kaur,Harry Beach MD, MD,Kb Ayers MDORDERED: GROSS COPIES TO: Emil Martinez MD [address] [address] Faizan Jennings MD [address], [address] [place] [address] Harry Gutierrez MD [address] [facility] [address] [address] Kb Bradford MD [address] #[id number] PROCEDURES: GROSS (08/29/19- 145) TISSUES: ANTRAL BIOPSY - H-PYLORI CLINICAL HISTORY COLLECTION DATE: 08/27/19 DYSPHAGIA FINAL DIAGNOSIS Antrum, biop sy: REACTIVE GASTROPATHY NO INTESTINAL METAPLASIA SEEN NEGA TIVE FOR HELICOBACTER PYLORI BY GIEMSA STAIN NEGATIVE FOR MALIGNANCY CONTINUED ON NEXT PAGE RUN DATE : 08/29/19 [facility] PAGE 2 RUN TIME: 1550 Specimen Inquiry RUN USER: INTERFACE SPEC #: [id number] PATIENT: KALYANI TALAVERA #V [id number] (Continued) FINAL DIAGNOSIS (Continue d) DMW/corby [place] [address], [address] MACROSCOPIC The specimen is re ceived in formalin, labeled with the patient's name, and identified as "antrum bx", and consists of two gutierrez biopsies measuring 0.25 cm each. RADHA SS PERFORMED AT [facility] PATHOLOGY [employer] S [address] [place] [address] (P)[phone] MICROS COPIC All of the stains, including any controls performed, stain casandra loyd. MICROSCOPIC PERFORMED AT [facility] PATHOLOGY [address] [place] [address] 886014 (p)[phone] PERFORMING SITE Diagnosis performed at: [facility] [address] [place] [address] Signed SIGNATURE ON FILE Petty Lowe MD 08/29/19 1550 END OF REPORT [id number] 11:43:00* Test Item Value Reference Range Interpretation Comments GLUBED (test code = GLUBED) 318 mg/dL 74-106 H Performed by certified ripper operator at [facility] BASIC METABOLIC [id number] 09:27:00* Test Item Value Reference Range Interpretation [...] CA) 8.5 mg/dL 8.5-10.1 N BASIC METABOLIC [id number] 09:17:00* Test Item Value Reference Range Interpretation [...] CALCIUM (test code = CA) mg/dL 8.5-10.1 [id number] 08:08:00* Test Item Value Reference Range Interpretation Comments GLUBED (test code = GLUBED) 291 mg/dL 74-106 H Performed by certified ripper operator at [facility] [id number] 20:52:00* Test Item Value Reference Range Interpretation Comments GLUBED (test code = GLUBED) 267 mg/dL 74-106 H Performed by certified ripper operator at [facility] [id number] 19:40:00* Test Item Value Reference Range Interpretation Comments TROPONIN-I (test code = TROPI) <0.015 ng/mL 0-0.045 N SPECIMEN COMMENTS: [id number] 19:27:00* Test Item Value Reference Range Interpretation Comments MAGNESIUM (test code = MAG) 1.6 mg/dL 1.8-2.4 L - XR ANKLE 3 + V [id number] 16:26:00 FAX: Benjamin Francis MD [phone] [place]: St: ADM Name: KALYANI CATES [facility] : [birth year] Age/S: 64/F [address] [facility] Unit #: [id number] Loc: V.[address] [place] [address] Phys: Benjamin Masters MD Acct: [id number] Dis Date: Status: ADM IN PHONE #: [phone] Exam Date: 08/28/2019 1600 FAX #: [phone] Reason: Left ankle injury EXAMS: CPT CODE: [id number] XR ANKLE 3 + V LT 52489 REASON FOR EXAM: Left ankle injury EXAM ORDER DATE: 08/28/2019 12:00 AM Ordering: Benjamin Masters MD Attending:Benjamin Masters MD Location:[facility] PROCEDURE: - XR ANKLE 3 + V LT FINDIN GS: 3 views of the left ankle were obtained. The osseous structures are un remarkable in size and shape. The joint spaces are maintained. No evidence of fracture. The syndesmosis is intact. IMPRESSION: Mild soft tissue swelling in the lateral malleolus. at 1626 Reported and signed by: Pelon Moreno M.D. CC: Benjamin Masters Technologist: Jacquie Alcantara RT(R) Trnscrd Date/Time/By: 08/28/2019 (8298) : By: LeanneVTL Orig P rint D/T: S: 08/28/2019 (0771) PAGE 1 Signed Report [id number] 16:25:00* Test Item Value Reference Range Interpretation Comments GLUBED (test code = GLUBED) 241 mg/dL 74-106 H Performed by certified ripper operator at [facility] - XR CHEST 1 [id number] 16:25:00 FAX: Benjamin Francis MD [phone] [place]: St: ADM Name: KALYANI CATES [facility] : [birth year] Age/S: 64/F [address] [facility] Unit #: [id number] Loc: V.3012 [place] [address] Phys: Benjamin Masters MD Acct: [id number] Dis Date: Status: ADM IN PHONE #: [phone] Exam Date: 08/28/2019 1600 FAX #: [phone] Reason: CHF EXAMS: CPT CODE: [id number] XR CHEST 1 V 55056 REASON FOR EXAM: CHF EXAM ORDER DATE: 08/28/2019 12:00 AM Ordering: Benjamin Masters MD Attending:Benjamin Masters MD Location:[facility] PRO CEDURE: - XR CHEST 1 V COMPARISON: 08/27/2019 FINDING S: Portable AP frontal view of the chest obtained at 3:59 PM shows clear lungs without evidence of consolidation. There is no evidence of effusion. The heart size is minimally enlarged. Pulmonary vasculatures are minimally congested. IMPRESSION: Interval improvement in the congestive heart failure. at 1620 Reported and signed by: Pelon Moreno M.D. CC: Benjamin Masters Technestrella st: Jacquie Alcantara RT(R) Trnscrd Date/Time/By: 08/28/2019 (2709) : By: LeanneVTL Orig Print D/T: S: 08/28/2019 (5072) PAGE 1 Signed Report [id number] 11:24:00* Test Item Value Reference Range Interpretation Comments GLUBED (test code = GLUBED) 289 mg/dL 74-106 H Performed by certified ripper operator at [facility] [id number] 07:51:00* Test Item Value Reference Range Interpretation Comments GLUBED (test code = GLUBED) 345 mg/dL 74-106 H Performed by certified ripper operator at [facility] BASIC METABOLIC [id number] 06:05:00* Test Item Value Reference Range Interpretation [...] CA) 8.4 mg/dL 8.5-10.1 L CBC W/AUTO [id number] 06:00:00* Test Item Value Reference Range Interpretation [...] = MDIFF) NO, ONLY SCAN NEEDED DIFFERENTIAL [id number] 06:00:00* Test Item Value Reference Range Interpretation Comments STAIN ACCEPTABILITY (test code = STN ACCEPTABLE) STAIN ACCEPTABLE ANISOCYTOSIS (test code = ANISO) 2+ MICROCYTOSIS (test code = MICR) 2+ PLATELET ESTIMATE (test code = PLTEST) ADEQUATE PLATELET MORPHOLOGY (test code = PLTMORPH) NORMAL BASIC METABOLIC [id number] 05:57:00* Test Item Value Reference Range Interpretation [...] code = CA) mg/dL 8.5-10.1 CBC W/AUTO [id number] 05:35:00* Test Item Value Reference Range Interpretation [...] = MDIFF) NO, ONLY SCAN NEEDED DIFFERENTIAL [id number] 05:35:00* Test Item Value Reference Range Interpretation Comments STAIN ACCEPTABILITY (test code = STN ACCEPTABLE) CABOT RINGS (test code = CAB) MORPHOLOGY COMMENT (test code = MOC) PLATELET ESTIMATE (test code = PLTEST) PLATELET MORPHOLOGY (test code = PLTMORPH) CBC W/AUTO [id number] 05:35:00* Test Item Value Reference Range Interpretation [...] = MDIFF) NO, ONLY SCAN NEEDED DIFFERENTIAL [id number] 05:35:00* Test Item Value Reference Range Interpretation Comments STAIN ACCEPTABILITY (test code = STN ACCEPTABLE) MORPHOLOGY COMMENT (test code = MOC) PLATELET ESTIMATE (test code = PLTEST) PLATELET MORPHOLOGY (test code = PLTMORPH) CBC W/AUTO [id number] 05:35:00* Test Item Value Reference Range Interpretation [...] = MDIFF) NO, ONLY SCAN NEEDED DIFFERENTIAL [id number] 05:35:00* Test Item Value Reference Range Interpretation Comments STAIN ACCEPTABILITY (test code = STN ACCEPTABLE) MORPHOLOGY COMMENT (test code = MOC) PLATELET ESTIMATE (test code = PLTEST) PLATELET MORPHOLOGY (test code = PLTMORPH) CBC W/AUTO [id number] 05:35:00* Test Item Value Reference Range Interpretation [...] = MDIFF) NO, ONLY SCAN NEEDED DIFFERENTIAL [id number] 05:35:00* Test Item Value Reference Range Interpretation Comments STAIN ACCEPTABILITY (test code = STN ACCEPTABLE) CABOT RINGS (test code = CAB) MORPHOLOGY COMMENT (test code = MOC) PLATELET ESTIMATE (test code = PLTEST) PLATELET MORPHOLOGY (test code = PLTMORPH) [id number] 20:01:00* Test Item Value Reference Range Interpretation Comments GLUBED (test code = GLUBED) 220 mg/dL 74-106 H Performed by certified ripper operator at [facility] [id number] 19:18:00* Test Item Value Reference Range Interpretation Comments GLYCOSYLATED HEMOGLOBIN (HA1C) (test code = GLYHGB) 9.6 % HbA1 SUGGESTED DIAGNOSIS: HbA1C (%) Diabetic >6.4Prediabetes 5.7 - 6.4Normal <5.7 ESTIMATED AVERAGE GLUCOSE (test code = EAG) 229 MG/DL - XR CHEST 1 [id number] 18:54:00 FAX: Loan Cortez NP [phone] [place]: St: ADM FAX: Benjamin Francis MD [phone] Name: KALYANI TALAVERA [facility] : 1955 Age/S: 64/F [address] Unit #: [id number] Loc: V.[address]012 [place] [address] Phys: Loan Cortez NP Acct: [id number] Dis Date: Status: ADM IN PHONE #: [phone] Exam Date: 08/27/2019 1845 FAX #: [phone] Reason: shortness of breath EXAMS: CPT CODE: [id number] XR CHEST 1 V 63739 REASON FOR EXAM: shortness of breath EXAM [...] by: Pelon Moreno M.D. CC: Loan Perez JACKHAMMER OPERATOR; Benjamin Masters Technologist: Frances Leyva(R) Trnscrd Date/Time/By: 08/27/2019 (1853) : By: KendyL Orig Print D/T: S: 08/27/2019 (1856) PAGE 1 Signed Report [id number] 18:35:00* Test Item Value Reference Range Interpretation Comments GLUBED (test code = GLUBED) 201 mg/dL 74-106 H Performed by certified ripper operator at [facility] T4 [id number] 18:03:00* Test Item Value Reference Range Interpretation Comments T4 FREE (test code = T4F) 1.10 ng/dL 0.76-1.46 N THYROID STIMULATING [id number] 18:03:00* Test Item Value Reference Range Interpretation Comments THYROID STIMULATING HORMONE (test code = TSH) 1.260 uIU/mL 0.36-3.7 4 N TSH REFERENCE RANGES: EUTHYROID: 0.35 - 4.3 mIU/mL HYPO : > 5.5 mIU/mL HYPER : < 0.35 mIU/mL [id number] 16:50:00* Test Item Value Reference Range Interpretation Comments GLUBED (test code = GLUBED) 217 mg/dL 74-106 H Performed by certified ripper operator at [facility] [id number] 12:15:00* Test Item Value Reference Range Interpretation Comments GLUBED (test code = GLUBED) 272 mg/dL 74-106 H Performed by certified ripper operator at [facility] [id number] 08:14:00* Test Item Value Reference Range Interpretation Comments GLUBED (test code = GLUBED) 322 mg/dL 74-106 H Performed by certified ripper operator at [facility] [id number] 04:01:00* Test Item Value Reference Range Interpretation Comments GLUBED (test code = GLUBED) 329 mg/dL 74-106 H Performed by certified ripper operator at [facility] CBC W/AUTO [id number] 23:42:00* Test Item Value Reference Range Interpretation [...] = MDIFF) NO, ONLY SCAN NEEDED DIFFERENTIAL [id number] 23:42:00* Test Item Value Reference Range Interpretation Comments STAIN ACCEPTABILITY (test code = STN ACCEPTABLE) STAIN ACCEPTABLE ANISOCYTOSIS (test code = ANISO) 2+ MICROCYTOSIS (test code = MICR) 2+ PLATELET ESTIMATE (test code = PLTEST) ADEQUATE PLATELET MORPHOLOGY (test code = PLTMORPH) NORMAL COMPREHENSIVE METABOLIC [id number] 23:14:00* Test Item Value Reference Range Interpretation Comments SODIUM (test code = NA) 137 mmol/L 136-145 N POTASSIUM (test code = K) 4.2 mmol/L 3.5-5.1 N CHLORIDE (test code = CL) 101.0 mmol/L 98-107 N CARBON DIOXIDE (test code = CO2) 29.0 mmol/L 21-32 N ANION GAP (test code = GAP) 11.2 10-20 N GLUCOSE (test code = GLU) 628 mg/dL 74-106 [facility] levar called to [id number] by V.[email or web address] 08/26/19 2313Critical results verified and [...] range due to change in reagent. URINALYSIS [id number] 23:08:00* Test Item Value Reference Range Interpretation [...] #/HPF NONE Urine Source? Clean CatchCOMPREHENSIVE METABOLIC [id number] 23:02:00* Test Item Value Reference Range Interpretation [...] code = ALKP) IUnit/L 45-117 CBC W/AUTO [id number] 22:58:00* Test Item Value Reference Range Interpretation [...] = MDIFF) NO, ONLY SCAN NEEDED DIFFERENTIAL [id number] 22:58:00* Test Item Value Reference Range Interpretation Comments STAIN ACCEPTABILITY (test code = STN ACCEPTABLE) CABOT RINGS (test code = CAB) MORPHOLOGY COMMENT (test code = MOC) PLATELET ESTIMATE (test code = PLTEST) PLATELET MORPHOLOGY (test code = PLTMORPH) CBC W/AUTO [id number] 22:58:00* Test Item Value Reference Range Interpretation [...] = MDIFF) NO, ONLY SCAN NEEDED DIFFERENTIAL [id number] 22:58:00* Test Item Value Reference Range Interpretation Comments STAIN ACCEPTABILITY (test code = STN ACCEPTABLE) CABOT RINGS (test code = CAB) MORPHOLOGY COMMENT (test code = MOC) PLATELET ESTIMATE (test code = PLTEST) PLATELET MORPHOLOGY (test code = PLTMORPH) CBC W/AUTO [id number] 22:58:00* Test Item Value Reference Range Interpretation [...] = MDIFF) NO, ONLY SCAN NEEDED DIFFERENTIAL [id number] 22:58:00* Test Item Value Reference Range Interpretation Comments STAIN ACCEPTABILITY (test code = STN ACCEPTABLE) MORPHOLOGY COMMENT (test code = MOC) PLATELET ESTIMATE (test code = PLTEST) PLATELET MORPHOLOGY (test code = PLTMORPH) CBC W/AUTO [id number] 22:58:00* Test Item Value Reference Range Interpretation [...] = MDIFF) NO, ONLY SCAN NEEDED DIFFERENTIAL [id number] 22:58:00* Test Item Value Reference Range Interpretation Comments STAIN ACCEPTABILITY (test code = STN ACCEPTABLE) CABOT RINGS (test code = CAB) MORPHOLOGY COMMENT (test code = MOC) PLATELET ESTIMATE (test code = PLTEST) PLATELET MORPHOLOGY (test code = PLTMORPH) VENOUS BLOOD [id number] 22:36:00* Test Item Value Reference Range Interpretation [...] [place] 22:17 - 08/26/2019; by Marcie TONY DIGITAL TECHNICIAN METHEMOGLOBIN (test code = METHGB) 0.1 % 0.0-1.50 N BASIC METABOLIC [id number] 14:12:00* Test Item Value Reference Range Interpretation [...] CA) 8.7 mg/dL 8.5-10.1 N BASIC METABOLIC [id number] 14:06:00* Test Item Value Reference Range Interpretation [...] CA) 8.7 mg/dL 8.5-10.1 N CBC W/AUTO [id number] 13:33:00* Test Item Value Reference Range Interpretation [...] K/mm3 0.0-0.1 N - CT C-SPINE W/O [id number] 08:02:00 Name: KALYANI TALAVERA [facility] : 1955 Age/S: 64 / F [address] Unit #: [id number] Loc: [place] [address] Phys: EvertThelma DO Acct: [id number] Dis Date: Status: REG ER PHONE #: [phone] Exam Date: 08/06/2019 7541 FAX #: [phone] Reason: Neck Pain EXAMS: CPT CODE: [id number] CT C-SPINE W/O CONTRAST 69638 HISTORY: Neck Pain, status post fall TECHNIQUE: [...] RT(R),(MR),(CT) CTDI: DLP: Trnscb Date/Time: 08/06/2019 (0802) [email or web address] Orig Print D/T: S: 08/06/2019 (0805) PAGE 1 Signed Report BASIC METABOLIC [id number] 07:06:00* Test Item Value Reference Range Interpretation [...] CA) 9.1 mg/dL 8.5-10.1 N BASIC METABOLIC [id number] 07:02:00* Test Item Value Reference Range Interpretation [...] code = CA) mg/dL 8.5-10.1 CBC W/O [id number] 06:41:00* Test Item Value Reference Range Interpretation [...] fL 6.7-11.0 N - CT C-SPINE W/O [id number] 06:25:00 Name: KALYANI TALAVERA [facility] : 1955 Age/S: 64 / F [address] Unit #: [id number] Loc: [place] [address] Phys: LoydThelma Acct: [id number] Dis Date: Status: REG ER PHONE #: [phone] Exam Date: 08/06/2019 0605 FAX #: [phone] Reason: Neck Pain EXAMS: CPT CODE: [id number] CT C-SPINE W/O CONTRAST 24058 EXAM: - CT C-SPINE W/O CONTRAST HISTORY: [...] Thelma Loyd DO; Benjamin Masters Technologist:JORDEN MERCADO, CTDI: DLP: Trnscb Date/Time: 08/06/2019 (01 15) [email or web address] Orig Print D/T: S: 08/06/2019 (06) P AGE 2 Signed Report - CT MAXIFAC W/O [id number] 06:21:00 Name: KALYANI TALAVERA [facility] : 1955 Age/S: 64 / F [address] Unit #: [id number] Loc: [place] [address] Phys: Thelma Loyd DO Acct: [id number] Dis Date: Status: REG ER PHONE #: [phone] Exam Date: 08/06/2019 0610 FAX #: [phone] Reason: TRAUMA EXAMS: CPT CODE: [id number] CT MAXIFAC W/[place] CNT [address] EXAM: - CT MAXIFAC W/O CNT HISTORY: [...] Technologist:RT EDUARDO CTDI: DLP: Trnscb Date/Time: 08/06/2019 (06) [email or web address] Orig Print D/T: S: 08/06/2019 (7941) PAGE 1 Signed Report - CT HEAD/BRAIN W/O [id number] 06:20:00 Name: KALYANI TALAVERA [facility] : 1955 Age/S: 64 / F [address] Unit #: [id number] Loc: [place] [address] Phys: Thelma Loyd Acct: [id number] Dis Date: Status: REG ER PHONE #: [phone] Exam Date: 08/06/2019 0559 FAX #: [phone] Reason: HEADACHE EXAMS: CPT CODE: [id number] CT HEAD/BRAIN W/O CONT 56154 EXAM: - CT HEAD/BRAIN W/O CONT Location [...] 1 Signed Report (CONTINUED) Name: KALYANI MOSES [facility] : 1955 Age/S: 64 / F [address] [facility] Unit #: [id number] L oc: [place] [address] Phys: Thelma Loyd DO Acct: [id number] Dis Date: Status: REG ER PHONE #: [phone] Exam Date: 08/06/2019 0559 FAX #: [phone] Malinda son: HEADACHE EXAMS: CPT CODE: [id number] CT HEAD/BRAIN W/O CONT 14883 <Continued> CC: Thelma Loyd DO; Benjamin Masters Technologist:RT EDUARDO CTDI: DLP: Trnscb Date/Time: 08/06/2019 (06) Peggy5 Orig Print D/T: S: 08/06/2019 (9218) PAGE 2 Signed Report BASIC METABOLIC [id number] 07:49:00* Test Item Value Reference Range Interpretation [...] code = CA) 8.7 mg/dL 8.5-10.1 N [id number] 06:05:00* Test Item Value Reference Range Interpretation Comments GLUBED (test code = GLUBED) 181 mg/dL 74-106 H Performed by certified ripper operator at [facility] [id number] 20:37:00* Test Item Value Reference Range Interpretation Comments GLUBED (test code = GLUBED) 285 mg/dL 74-106 H Performed by certified ripper operator at [facility] [id number] 17:15:00* Test Item Value Reference Range Interpretation Comments GLUBED (test code = GLUBED) 84 mg/dL 74-106 N Performed by certified ripper operator at [facility] [id number] 17:15:00* Test Item Value Reference Range Interpretation Comments GLUBED (test code = GLUBED) 166 mg/dL 74-106 H Performed by certified ripper operator at [facility] BASIC METABOLIC [id number] 07:13:00* Test Item Value Reference Range Interpretation [...] CA) 8.7 mg/dL 8.5-10.1 N BASIC METABOLIC [id number] 07:09:00* Test Item Value Reference Range Interpretation [...] code = CA) mg/dL 8.5-10.1 CBC W/AUTO [id number] 06:42:00* Test Item Value Reference Range Interpretation [...] DIFF REQUIRED (test code = MDIFF) NO [id number] 06:33:00* Test Item Value Reference Range Interpretation Comments GLUBED (test code = GLUBED) 180 mg/dL 74-106 H Performed by certified ripper operator at [facility] [id number] 20:48:00* Test Item Value Reference Range Interpretation Comments GLUBED (test code = GLUBED) 403 mg/dL 74-106 H Performed by certified ripper operator at [facility] [id number] 18:00:00* Test Item Value Reference Range Interpretation Comments GLUBED (test code = GLUBED) 326 mg/dL 74-106 H Performed by certified ripper operator at [facility] [id number] 14:21:00* Test Item Value Reference Range Interpretation Comments GLYCOSYLATED HEMOGLOBIN (HA1C) (test code = GLYHGB) 8.9 % HbA1 SUGGESTED DIAGNOSIS: HbA1C (%) Diabetic >6.4Prediabetes 5.7 - 6.4Normal <5.7 ESTIMATED AVERAGE GLUCOSE (test code = EAG) 209 MG/DL [id number] 13:22:00* Test Item Value Reference Range Interpretation Comments GLUBED (test code = GLUBED) 222 mg/dL 74-106 H Performed by certified ripper operator at [facility] CBC W/AUTO [id number] 10:20:00* Test Item Value Reference Range Interpretation [...] = MDIFF) NO, ONLY SCAN NEEDED DIFFERENTIAL [id number] 10:20:00* Test Item Value Reference Range Interpretation Comments STAIN ACCEPTABILITY (test code = STN ACCEPTABLE) STAIN ACCEPTABLE MORPHOLOGY COMMENT (test code = MOC) NORMAL PLATELET ESTIMATE (test code = PLTEST) ADEQUATE PLATELET MORPHOLOGY (test code = PLTMORPH) NORMAL COMPREHENSIVE METABOLIC [id number] 10:05:00* Test Item Value Reference Range Interpretation [...] due to change in reagent. B-TYPE NATRIURETIC [id number] 09:56:00* Test Item Value Reference Range Interpretation Comments B-TYPE NATRIURETIC PEPTIDE (test code = BNP) 62.56 pgram/mL 0-100 N COMPREHENSIVE METABOLIC [id number] 09:55:00* Test Item Value Reference Range Interpretation [...] code = ALKP) IUnit/L 45-117 CBC W/AUTO [id number] 09:21:00* Test Item Value Reference Range Interpretation [...] = MDIFF) NO, ONLY SCAN NEEDED DIFFERENTIAL [id number] 09:21:00* Test Item Value Reference Range Interpretation Comments STAIN ACCEPTABILITY (test code = STN ACCEPTABLE) CABOT RINGS (test code = CAB) MORPHOLOGY COMMENT (test code = MOC) PLATELET ESTIMATE (test code = PLTEST) PLATELET MORPHOLOGY (test code = PLTMORPH) CBC W/AUTO [id number] 09:21:00* Test Item Value Reference Range Interpretation [...] = MDIFF) NO, ONLY SCAN NEEDED DIFFERENTIAL [id number] 09:21:00* Test Item Value Reference Range Interpretation Comments STAIN ACCEPTABILITY (test code = STN ACCEPTABLE) MORPHOLOGY COMMENT (test code = MOC) PLATELET ESTIMATE (test code = PLTEST) PLATELET MORPHOLOGY (test code = PLTMORPH) CBC W/AUTO [id number] 09:20:00* Test Item Value Reference Range Interpretation [...] = MDIFF) NO, ONLY SCAN NEEDED DIFFERENTIAL [id number] 09:20:00* Test Item Value Reference Range Interpretation Comments STAIN ACCEPTABILITY (test code = STN ACCEPTABLE) CABOT RINGS (test code = CAB) MORPHOLOGY COMMENT (test code = MOC) PLATELET ESTIMATE (test code = PLTEST) PLATELET MORPHOLOGY (test code = PLTMORPH) CBC W/AUTO [id number] 09:20:00* Test Item Value Reference Range Interpretation [...] = MDIFF) NO, ONLY SCAN NEEDED DIFFERENTIAL [id number] 09:20:00* Test Item Value Reference Range Interpretation Comments STAIN ACCEPTABILITY (test code = STN ACCEPTABLE) CABOT RINGS (test code = CAB) MORPHOLOGY COMMENT (test code = MOC) PLATELET ESTIMATE (test code = PLTEST) PLATELET MORPHOLOGY (test code = PLTMORPH) [id number] 06:25:00* Test Item Value Reference Range Interpretation Comments GLUBED (test code = GLUBED) 208 mg/dL 74-106 H Performed by certified ripper operator at [facility] [id number] 20:49:00* Test Item Value Reference Range Interpretation Comments GLUBED (test code = GLUBED) 383 mg/dL 74-106 H Performed by certified ripper operator at [facility] [id number] 20:49:00* Test Item Value Reference Range Interpretation Comments GLUBED (test code = GLUBED) 421 mg/dL 74-106 H Performed by certified ripper operator at [facility] - XR CHEST 1 [id number] 16:23:00 FAX: Alfa Moscoso MD [phone] [place]: St: [facility] FAX: Benjamin Francis MD [phone] Name: KALYANI TALAVERA [facility] : 1955 Age/S: 64/F [address] Unit #: [id number] Loc: [place] [address] Phys: Alfa Cassidy MD Acct: [id number] Dis Date: Status: ADM IN PHONE #: [phone] Exam Date: 06/29/2019 1600 FAX #: [phone] Reason: CHF EXAMS: CPT CODE: [id number] XR CHEST 1 V 84053 HISTORY: CHF. COMPARISON: June 28, 2019. Single [...] Farhad Cassidy MD; Benjamin Masters Technologist: Kizzy CLEMENTS(R) Trnscrd Date/Time/By: 06/29/2019 (1623) : By: [email or web address] Orig Print D/T: S: 06/30/2019 (1226) PAGE 1 Signed Report GLUBED 2019-06-29 12:29:00* Test Item Value Reference Range Interpretation Comments GLUBED (test code = GLUBED) 310 mg/dL 74-106 H Performed by certified ripper operator at [facility] [id number] 06:19:00* Test Item Value Reference Range Interpretation Comments GLUBED (test code = GLUBED) 339 mg/dL 74-106 H Performed by certified ripper operator at [facility] [id number] 00:36:00* Test Item Value Reference Range Interpretation Comments GLUBED (test code = GLUBED) 454 mg/dL 74-106 H Performed by certified ripper operator at [facility] [id number] 20:49:00* Test Item Value Reference Range Interpretation Comments GLUBED (test code = GLUBED) 480 mg/dL 74-106 H Performed by certified ripper operator at [facility] [id number] 18:21:00* Test Item Value Reference Range Interpretation Comments GLUBED (test code = GLUBED) 388 mg/dL 74-106 H Performed by certified ripper operator at [facility] URINALYSIS [id number] 11:46:00* Test Item Value Reference Range Interpretation [...] #/LPF FEW Urine Source? Clean CatchB-TYPE NATRIURETIC [id number] 10:41:00* Test Item Value Reference Range Interpretation [...] taking into account the patients history. PROTHROMBIN [id number] 09:36:00* Test Item Value Reference Range Interpretation [...] (2.5-3.5) IS PATIENT ON ANTICOAGULANTS? NTHROMBOPLASTIN TIME [id number] 09:36:00* Test Item Value Reference Range Interpretation Comments THROMBOPLASTIN TIME PARTIAL (test code = PTT) 33.1 seconds 25.0-36. 5 N IS PATIENT ON ANTICOAGULANTS? [id number] 09:36:00* Test Item Value Reference Range Interpretation [...] cirrhosis - IS PATIENT ON ANTICOAGULANTS? NLACTIC [id number] 09:31:00* Test Item Value Reference Range Interpretation Comments LACTIC ACID (test code = LACT) 0.9 mmol/L 0.4-1.9 N BASIC METABOLIC [id number] 09:23:00* Test Item Value Reference Range Interpretation [...] code = CA) 8.8 mg/dL 8.5-10.1 N [id number] 09:23:00* Test Item Value Reference Range Interpretation Comments TROPONIN-I (test code = TROPI) <0.015 ng/mL 0-0.045 N - XR CHEST 1 [id number] 08:57:00 FAX: Amish Nur [phone] [place]: St: [facility] FAX: Anastacio Burgess MD Name: KALYANI TALAVERA [facility] : 1955 Age/S: 64/F [address] [facility] Unit #: [id number] Loc: [place] [address] Phys: Anastacio Burgess MD Acct: [id number] Dis Date: Status: REG ER PHONE #: [phone] Exam Date: 06/28/2019825 FAX #: [phone] Reason: Shortness of Breath EXAMS: CPT CODE: [id number] XR CHEST 1 V 52193 REASON FOR EXAM: Shortness of Breath Exam [...] volumes with bibasilar subsegmental atelectasis. Location: [facility] at 0857 Reported and signed by: Dago Goodson MD CC: Lucille Land MD; Anastacio Burgess MD Technologist: Dayan Gallagher Trnscrd Date/Time/By: 06/28/2019 (0857) : By: [email or web address] Orig Print D/T: S: 06/28/2019 (5708) PAGE 1 Signed Report VENOUS BLOOD [id number] 08:54:00* Test Item Value Reference Range Interpretation Comments VENOUS BLOOD GAS PH (test code = PHV) 7.56 7.30-7.40 HH Results called to and read back by jairo 08:52 - 06/28/2019; by kushal cano VENOUS BLOOD GAS PCO2 (test code = PCO2V) 22.6 mm Hg 39.0-51.0 LL Results called to and read back by jairo 08:52 - 06/28/2019; by kushal security supervisor VENOUS BLOOD GAS PO2 (test code = [...] METHGB) 0.3 % 0.0-1.50 N CBC W/O [id number] 08:45:00* Test Item Value Reference Range Interpretation [...] code = MPV) 10.1 fL 6.7-11.0 N [id number] 16:30:00* Test Item Value Reference Range Interpretation Comments GLUBED (test code = GLUBED) 256 mg/dL 74-106 H Performed by certified ripper operator at [facility] [id number] 16:30:00* Test Item Value Reference Range Interpretation Comments GLUBED (test code = GLUBED) 277 mg/dL 74-106 H Performed by certified ripper operator at [facility] [id number] 07:50:00* Test Item Value Reference Range Interpretation Comments GLUBED (test code = GLUBED) 145 mg/dL 74-106 H Performed by certified ripper operator at [facility] [id number] 20:38:00* Test Item Value Reference Range Interpretation Comments GLUBED (test code = GLUBED) 250 mg/dL 74-106 H Performed by certified ripper operator at [facility] [id number] 16:19:00* Test Item Value Reference Range Interpretation Comments GLUBED (test code = GLUBED) 340 mg/dL 74-106 H Performed by certified ripper operator at [facility] [id number] 11:09:00* Test Item Value Reference Range Interpretation Comments GLUBED (test code = GLUBED) 102 mg/dL 74-106 N Performed by certified ripper operator at [facility] [id number] 07:20:00* Test Item Value Reference Range Interpretation Comments GLUBED (test code = GLUBED) 144 mg/dL 74-106 H Performed by certified ripper operator at [facility] [id number] 21:56:00* Test Item Value Reference Range Interpretation Comments GLUBED (test code = GLUBED) 328 mg/dL 74-106 H Performed by certified ripper operator at [facility] [id number] 16:11:00* Test Item Value Reference Range Interpretation Comments GLUBED (test code = GLUBED) 378 mg/dL 74-106 H Performed by certified ripper operator at [facility] [id number] 11:08:00* Test Item Value Reference Range Interpretation Comments GLUBED (test code = GLUBED) 168 mg/dL 74-106 H Performed by certified ripper operator at [facility] [id number] 07:29:00* Test Item Value Reference Range Interpretation Comments GLUBED (test code = GLUBED) 205 mg/dL 74-106 H Performed by certified ripper operator at [facility] B-TYPE NATRIURETIC [id number] 06:12:00* Test Item Value Reference Range Interpretation Comments B-TYPE NATRIURETIC PEPTIDE (test code = BNP) 86.51 pgram/mL 0-100 N COMPREHENSIVE METABOLIC [id number] 05:53:00* Test Item Value Reference Range Interpretation [...] due to change in reagent. COMPREHENSIVE METABOLIC [id number] 05:37:00* Test Item Value Reference Range Interpretation [...] code = ALKP) IUnit/L 45-117 CBC W/AUTO [id number] 05:26:00* Test Item Value Reference Range Interpretation [...] DIFF REQUIRED (test code = MDIFF) NO [id number] 02:25:00* Test Item Value Reference Range Interpretation Comments GLUBED (test code = GLUBED) 408 mg/dL 74-106 H Performed by certified ripper operator at [facility] [id number] 17:10:00* Test Item Value Reference Range Interpretation Comments GLUCOSE (test code = GLU) 536 mg/dL 74-106 HH Re sults called to [id number] by V.LAB.LT 06/10/19 1710Critical results verified and read back by Nurse? Y [id number] 16:05:00* Test Item Value Reference Range Interpretation Comments GLUBED (test code = GLUBED) > 500 mg/dL 74-106 HH [facility] Not[facility]~ [id number] 11:05:00* Test Item Value Reference Range Interpretation Comments GLUBED (test code = GLUBED) 279 mg/dL 74-106 H Performed by certified ripper operator at [facility] BASIC METABOLIC [id number] 11:02:00* Test Item Value Reference Range Interpretation [...] code = CA) 8.9 mg/dL 8.5-10.1 N [id number] 11:02:00* Test Item Value Reference Range Interpretation Comments MAGNESIUM (test code = MAG) 2.0 mg/dL 1.8-2.4 N BASIC METABOLIC [id number] 10:52:00* Test Item Value Reference Range Interpretation [...] CALCIUM (test code = CA) mg/dL 8.5-10.1 [id number] 10:52:00* Test Item Value Reference Range Interpretation Comments MAGNESIUM (test code = MAG) mg/dL 1.8-2.4 [id number] 07:27:00* Test Item Value Reference Range Interpretation Comments GLUBED (test code = GLUBED) 260 mg/dL 74-106 H Performed by certified ripper operator at [facility] [id number] 20:43:00* Test Item Value Reference Range Interpretation Comments GLUBED (test code = GLUBED) 417 mg/dL 74-106 H Performed by certified ripper operator at [facility] [id number] 15:54:00* Test Item Value Reference Range Interpretation Comments GLUBED (test code = GLUBED) 389 mg/dL 74-106 H Performed by certified ripper operator at [facility] [id number] 12:24:00* Test Item Value Reference Range Interpretation Comments GLUBED (test code = GLUBED) 389 mg/dL 74-106 H Performed by certified ripper operator at [facility] [id number] 07:56:00* Test Item Value Reference Range Interpretation Comments GLUBED (test code = GLUBED) 350 mg/dL 74-106 H Performed by certified ripper operator at [facility] [id number] 04:10:00* Test Item Value Reference Range Interpretation Comments GLUBED (test code = GLUBED) 427 mg/dL 74-106 H Performed by certified ripper operator at [facility] [id number] 19:56:00* Test Item Value Reference Range Interpretation Comments GLUBED (test code = GLUBED) 384 mg/dL 74-106 H Performed by certified ripper operator at [facility] [id number] 16:27:00* Test Item Value Reference Range Interpretation Comments GLUBED (test code = GLUBED) 378 mg/dL 74-106 H Performed by certified ripper operator at [facility] [id number] 12:06:00* Test Item Value Reference Range Interpretation Comments GLUBED (test code = GLUBED) 402 mg/dL 74-106 H Performed by certified ripper operator at [facility] [id number] 11:11:00* Test Item Value Reference Range Interpretation Comments TROPONIN-I (test code = TROPI) <0.015 ng/mL 0-0.045 N COMMENTS TO HOUSEHOLD APPLIANCE MECHANIC: COLLECT 3 HOURS AFTER PREVIOUS SAMPLEURINALYSIS [id number] 08:30:00* Test Item Value Reference Range Interpretation [...] MUCU) FEW #/LPF FEW Urine Source? Clean [id number] 07:35:00* Test Item Value Reference Range Interpretation Comments TROPONIN-I (test code = TROPI) <0.015 ng/mL 0-0.045 N COMMENTS TO HOUSEHOLD APPLIANCE MECHANIC: COLLECT 3 HOURS AFTER PREVIOUS [id number] 06:35:00* Test Item Value Reference Range Interpretation Comments GLUBED (test code = GLUBED) 298 mg/dL 74-106 H Performed by certified ripper operator at [facility] BASIC METABOLIC [id number] 01:22:00* Test Item Value Reference Range Interpretation [...] CA) 8.5 mg/dL 8.5-10.1 N HEPATIC FUNCTION [id number] 01:22:00* Test Item Value Reference Range Interpretation [...] reference range due to change in reagent. [id number] 01:22:00* Test Item Value Reference Range Interpretation Comments LIPASE (test code = LIP) 143 U/L 73.0-393.0 N [id number] 01:22:00* Test Item Value Reference Range Interpretation Comments TROPONIN-I (test code = TROPI) <0.015 ng/mL 0-0.045 N BASIC METABOLIC [id number] 01:14:00* Test Item Value Reference Range Interpretation [...] code = CA) mg/dL 8.5-10.1 HEPATIC FUNCTION [id number] 01:14:00* Test Item Value Reference Range Interpretation [...] TOTAL (test code = ALKP) IUnit/L 45-117 [id number] 01:14:00* Test Item Value Reference Range Interpretation Comments LIPASE (test code = LIP) U/L 73.0-393.0 [id number] 01:14:00* Test Item Value Reference Range Interpretation Comments TROPONIN-I (test code = TROPI) ng/mL 0-0.045 B-TYPE NATRIURETIC [id number] 00:16:00* Test Item Value Reference Range Interpretation Comments B-TYPE NATRIURETIC PEPTIDE (test code = BNP) 43.43 pgram/mL 0-100 N PROTHROMBIN [id number] 23:21:00* Test Item Value Reference Range Interpretation [...] (2.5-3.5) IS PATIENT ON ANTICOAGULANTS? NTHROMBOPLASTIN TIME [id number] 23:21:00* Test Item Value Reference Range Interpretation Comments THROMBOPLASTIN TIME PARTIAL (test code = PTT) 28.8 seconds 25.0-36. 5 N IS PATIENT ON ANTICOAGULANTS? NCBC W/O [id number] 23:12:00* Test Item Value Reference Range Interpretation [...] fL 6.7-11.0 N - XR CHEST 1 [id number] 23:01:00 FAX: Amish Nur, [place]: St: REG FAX: Anastacio Burgess MD Name: KALYANI TALAVERA [facility] : 1955 Age/S: 64/F [address] [facility] Unit #: [id number] Loc: [place] [address] Phys: Anastacio Burgess MD Acct: [id number] Dis Date: Status: REG ER PHONE #: [phone] Exam Date: 06/07/2019 2250 FAX #: [phone] Reason: Abdominal Pain EXAMS: CPT CODE: [id number] XR CHEST 1 V 24799 EXAM: Chest x-ray, one view; INFORMATION: Vomiting; abdominal pain; FINDINGS: Increased densities of the left lung which may be due to edema or infiltrative changes. The right lung is slightly better aerated. Bilateral atelectatic changes. The heart is slightly enlarged. IMPRESSION: 1. Left pulmonary edema or possibly interstitial infiltrative changes and basilar atelectatic changes. 2. Mild cardiomegaly. Location code: [facility] at 2301 Reported and signed by: Jc Bravo M.D. CC: Lucille Nur MD; Anastacio Burgess MD Technologist: Marcelino Reid RT(R); SCOOBY PARSONS RT(R) Trnscrd Date/Time/By: 06/07/2019 (230) : By: Leanne GRW Orig Print D/T: S: 06/07/2019 (0315) PAGE 1 Signed Report - CT HEAD/BRAIN W/O [id number] 13:15:00 Name: KALYANI TALAVERA [facility] : 1955 Age/S: 64 / F [address] [facility] Unit #: [id number] Loc: [place] [address] Phys: Jessenia Be MD Acct: [id number] Dis Date: Status: REG ER PHONE #: [phone] Exam Date: 05/31/2019 1246 FAX #: [phone] Reason: pain, trauma EXAMS: CPT CODE: [id number] CT HEAD/BRAIN W/O CONT 54813 HISTORY: pain, trauma TECHNIQUE: Noncontrast 2.5 mm [...] unchanged from the prior examination. Location: [facility] at 1315 Reported and signed by: Dago Goodson MD CC: Lucille Land MD; Jessenia Be MD Technologist:Kael Bhardwaj RT(R) CTDI: DLP: Trnscb Date/Time: 05/31/2019 (1315) [email or web address] Orig Print D/T: S: 05/31/2019 (2273) PAGE 1 Signed Report GLUBED 2019-05-31 12:02:00* Test Item Value Reference Range Interpretation Comments GLUBED (test code = GLUBED) 200 mg/dL 74-106 H Performed by certified ripper operator at [facility] [id number] 09:10:00* Test Item Value Reference Range Interpretation Comments GLUBED (test code = GLUBED) 83 mg/dL 74-106 N Performed by certified ripper operator at [facility] [id number] 11:47:00* Test Item Value Reference Range Interpretation Comments GLUBED (test code = GLUBED) 192 mg/dL 74-106 H Performed by certified ripper operator at [facility] [id number] 07:59:00* Test Item Value Reference Range Interpretation Comments GLUBED (test code = GLUBED) 164 mg/dL 74-106 H Performed by certified ripper operator at [facility] [id number] 21:14:00* Test Item Value Reference Range Interpretation Comments GLUBED (test code = GLUBED) 215 mg/dL 74-106 H Performed by certified ripper operator at [facility] [id number] 15:34:00* Test Item Value Reference Range Interpretation Comments GLUBED (test code = GLUBED) 130 mg/dL 74-106 H Performed by certified ripper operator at [facility] [id number] 12:10:00* Test Item Value Reference Range Interpretation Comments GLUBED (test code = GLUBED) 231 mg/dL 74-106 H Performed by certified ripper operator at [facility] [id number] 08:38:00* Test Item Value Reference Range Interpretation Comments GLUBED (test code = GLUBED) 173 mg/dL 74-106 H Performed by certified ripper operator at [facility] [id number] 20:39:00* Test Item Value Reference Range Interpretation Comments GLUBED (test code = GLUBED) 129 mg/dL 74-106 H Performed by certified ripper operator at [facility] [id number] 16:16:00* Test Item Value Reference Range Interpretation Comments GLUBED (test code = GLUBED) 337 mg/dL 74-106 H Performed by certified ripper operator at [facility] [id number] 12:15:00* Test Item Value Reference Range Interpretation Comments GLUBED (test code = GLUBED) 247 mg/dL 74-106 H Performed by certified ripper operator at [facility] [id number] 08:03:00* Test Item Value Reference Range Interpretation Comments GLUBED (test code = GLUBED) 170 mg/dL 74-106 H Performed by certified ripper operator at [facility] [id number] 20:11:00* Test Item Value Reference Range Interpretation Comments GLUBED (test code = GLUBED) 244 mg/dL 74-106 H Performed by certified ripper operator at [facility] [id number] 17:36:00* Test Item Value Reference Range Interpretation Comments GLUBED (test code = GLUBED) 238 mg/dL 74-106 H Performed by certified ripper operator at [facility] [id number] 16:06:00* Test Item Value Reference Range Interpretation Comments GLUBED (test code = GLUBED) 196 mg/dL 74-106 H Performed by certified ripper operator at [facility] [id number] 12:42:00* Test Item Value Reference Range Interpretation Comments GLUBED (test code = GLUBED) 292 mg/dL 74-106 H Performed by certified ripper operator at [facility] [id number] 09:09:00* Test Item Value Reference Range Interpretation Comments GLUBED (test code = GLUBED) 196 mg/dL 74-106 H Performed by certified ripper operator at [facility] [id number] 20:30:00* Test Item Value Reference Range Interpretation Comments GLUBED (test code = GLUBED) 213 mg/dL 74-106 H Performed by certified ripper operator at [facility] [id number] 18:23:00* Test Item Value Reference Range Interpretation Comments GLUBED (test code = GLUBED) 102 mg/dL 74-106 N Performed by certified ripper operator at [facility] [id number] 17:02:00* Test Item Value Reference Range Interpretation Comments GLUBED (test code = GLUBED) 181 mg/dL 74-106 H Performed by certified ripper operator at [facility] BASIC METABOLIC [id number] 15:17:00* Test Item Value Reference Range Interpretation [...] CA) 9.3 mg/dL 8.5-10.1 N BASIC METABOLIC [id number] 15:08:00* Test Item Value Reference Range Interpretation [...] CALCIUM (test code = CA) mg/dL 8.5-10.1 [id number] 12:53:00* Test Item Value Reference Range Interpretation Comments GLUBED (test code = GLUBED) 262 mg/dL 74-106 H Performed by certified ripper operator at [facility] [id number] 08:22:00* Test Item Value Reference Range Interpretation Comments GLUBED (test code = GLUBED) 198 mg/dL 74-106 H Performed by certified ripper operator at [facility] CBC W/AUTO [id number] 06:43:00* Test Item Value Reference Range Interpretation [...] = MDIFF) NO, ONLY SCAN NEEDED DIFFERENTIAL [id number] 06:43:00* Test Item Value Reference Range Interpretation Comments STAIN ACCEPTABILITY (test code = STN ACCEPTABLE) STAIN ACCEPTABLE MORPHOLOGY COMMENT (test code = MOC) NORMAL PLATELET ESTIMATE (test code = PLTEST) ADEQUATE PLATELET MORPHOLOGY (test code = PLTMORPH) NORMAL COMPREHENSIVE METABOLIC [id number] 05:19:00* Test Item Value Reference Range Interpretation [...] due to change in reagent. COMPREHENSIVE METABOLIC [id number] 05:11:00* Test Item Value Reference Range Interpretation [...] code = ALKP) IUnit/L 45-117 CBC W/AUTO [id number] 04:49:00* Test Item Value Reference Range Interpretation [...] = MDIFF) NO, ONLY SCAN NEEDED DIFFERENTIAL [id number] 04:49:00* Test Item Value Reference Range Interpretation Comments STAIN ACCEPTABILITY (test code = STN ACCEPTABLE) CABOT RINGS (test code = CAB) MORPHOLOGY COMMENT (test code = MOC) PLATELET ESTIMATE (test code = PLTEST) PLATELET MORPHOLOGY (test code = PLTMORPH) CBC W/AUTO [id number] 04:49:00* Test Item Value Reference Range Interpretation [...] = MDIFF) NO, ONLY SCAN NEEDED DIFFERENTIAL [id number] 04:49:00* Test Item Value Reference Range Interpretation Comments STAIN ACCEPTABILITY (test code = STN ACCEPTABLE) CABOT RINGS (test code = CAB) MORPHOLOGY COMMENT (test code = MOC) PLATELET ESTIMATE (test code = PLTEST) PLATELET MORPHOLOGY (test code = PLTMORPH) CBC W/AUTO [id number] 04:49:00* Test Item Value Reference Range Interpretation [...] = MDIFF) NO, ONLY SCAN NEEDED DIFFERENTIAL [id number] 04:49:00* Test Item Value Reference Range Interpretation Comments STAIN ACCEPTABILITY (test code = STN ACCEPTABLE) MORPHOLOGY COMMENT (test code = MOC) PLATELET ESTIMATE (test code = PLTEST) PLATELET MORPHOLOGY (test code = PLTMORPH) CBC W/AUTO [id number] 04:49:00* Test Item Value Reference Range Interpretation [...] = MDIFF) NO, ONLY SCAN NEEDED DIFFERENTIAL [id number] 04:49:00* Test Item Value Reference Range Interpretation Comments STAIN ACCEPTABILITY (test code = STN ACCEPTABLE) CABOT RINGS (test code = CAB) MORPHOLOGY COMMENT (test code = MOC) PLATELET ESTIMATE (test code = PLTEST) PLATELET MORPHOLOGY (test code = PLTMORPH) [id number] 21:00:00* Test Item Value Reference Range Interpretation Comments GLUBED (test code = GLUBED) 245 mg/dL 74-106 H Performed by certified ripper operator at [facility] [id number] 17:03:00* Test Item Value Reference Range Interpretation Comments GLUBED (test code = GLUBED) 110 mg/dL 74-106 H Performed by certified ripper operator at [facility] [id number] 13:56:00* Test Item Value Reference Range Interpretation Comments MAGNESIUM (test code = MAG) 2.4 mg/dL 1.8-2.4 N [id number] 11:32:00* Test Item Value Reference Range Interpretation Comments GLUBED (test code = GLUBED) 327 mg/dL 74-106 H Performed by certified ripper operator at [facility] [id number] 07:46:00* Test Item Value Reference Range Interpretation Comments GLUBED (test code = GLUBED) 294 mg/dL 74-106 H Performed by certified ripper operator at [facility] COMPREHENSIVE METABOLIC [id number] 05:18:00* Test Item Value Reference Range Interpretation [...] result is a direct measurement.========= THYROID STIMULATING [id number] 05:18:00* Test Item Value Reference Range Interpretation Comments THYROID STIMULATING HORMONE (test code = TSH) 2.610 uIU/mL 0.36-3.7 4 N TSH REFERENCE RANGES: EUTHYROID: 0.35 - 4.3 mIU/mL HYPO : > 5.5 mIU/mL HYPER : < 0.35 mIU/mL [id number] 05:18:00* Test Item Value Reference Range Interpretation Comments GLYCOSYLATED HEMOGLOBIN (HA1C) (test code = GLYHGB) 9.0 % HbA1 4. 8-6.0 H ESTIMATED AVERAGE GLUCOSE (test code = EAG) 212 MG/DL CBC W/AUTO [id number] 04:33:00* Test Item Value Reference Range Interpretation [...] code = BA#) K/mm3 0.0-0.2 CBC W/AUTO [id number] 04:33:00* Test Item Value Reference Range Interpretation [...] code = NRBC#) 0.00 K/mm3 0.0-0.1 N [id number] 20:34:00* Test Item Value Reference Range Interpretation Comments GLUBED (test code = GLUBED) 106 mg/dL 74-106 N Performed by certified ripper operator at [facility] [id number] 16:44:00* Test Item Value Reference Range Interpretation Comments GLUBED (test code = GLUBED) 290 mg/dL 74-106 H Performed by certified ripper operator at [facility] [id number] 16:44:00* Test Item Value Reference Range Interpretation Comments GLUBED (test code = GLUBED) 276 mg/dL 74-106 H Performed by certified ripper operator at [facility] T4 [id number] 16:31:00* Test Item Value Reference Range Interpretation Comments T4 FREE (test code = T4F) 1.06 ng/dL 0.76-1.46 N THYROID STIMULATING [id number] 16:31:00* Test Item Value Reference Range Interpretation Comments THYROID STIMULATING HORMONE (test code = TSH) 0.871 uIU/mL 0.36-3.7 4 N TSH REFERENCE RANGES: EUTHYROID: 0.35 - 4.3 mIU/mL HYPO : > 5.5 mIU/mL HYPER : < 0.35 mIU/mL [id number] 16:30:00* Test Item Value Reference Range Interpretation Comments GLYCOSYLATED HEMOGLOBIN (HA1C) (test code = GLYHGB) 9.8 % HbA1 4. 8-6.0 H ESTIMATED AVERAGE GLUCOSE (test code = EAG) 235 MG/DL [id number] 12:28:00* Test Item Value Reference Range Interpretation Comments GLUBED (test code = GLUBED) 282 mg/dL 74-106 H Performed by certified ripper operator at [facility] [id number] 11:21:00* Test Item Value Reference Range Interpretation Comments MAGNESIUM (test code = MAG) 2.3 mg/dL 1.8-2.4 N [id number] 10:04:00* Test Item Value Reference Range Interpretation Comments TROPONIN-I (test code = TROPI) <0.015 ng/mL 0-0.045 N COMMENTS TO HOUSEHOLD APPLIANCE MECHANIC: COLLECT 3 HOURS AFTER PREVIOUS [id number] 04:34:00* Test Item Value Reference Range Interpretation Comments TROPONIN-I (test code = TROPI) <0.015 ng/mL 0-0.045 N COMMENTS TO HOUSEHOLD APPLIANCE MECHANIC: COLLECT 3 HOURS AFTER PREVIOUS [id number] 04:12:00* Test Item Value Reference Range Interpretation Comments GLUBED (test code = GLUBED) 257 mg/dL 74-106 H Performed by certified ripper operator at [facility] - CT CHEST W/O [id number] 23:57:00 Name: KALYANI TALAVERA [facility] : 1955 Age/S: 64 / F [address] Unit #: [id number] Loc: [place] [address] Phys: Leonora Goins MD Acct: [id number] Dis Date: Status: REG ER PHONE #: [phone] Exam Date: 05/17/2019 2320 FAX #: [phone] Reason: shortneess of breath, weakness EXAMS: CPT CODE: [id number] CT CHEST W/O CONTRAST 80546 LOCATION: Q15 HISTORY: 64-year-old female who presents [...] 1 Signed Report (CONTINUED) Name: KALYANI TALAVERA [facility] : 1955 Age/S: 64 / F [address] Unit #: [id number] Loc: [place] [address] Phys: Leonora Goins MD Acct: [id number] Dis Date: S tatus: REG ER PHONE #: [phone] Exam Da te: 05/17/2019 2320 FAX #: [phone] Reason: shortn eess of breath, weakness EXAMS: CPT CODE: [id number] CT CHEST W/O CONTRAST 88984 <Continued> CC: Lucille Nur MD; Leonora Goins MD Technologist:JORDEN MERCADO, RT CTDI: DLP: Trnscb Date/Time: 05/17/2019 (2357) t.SDR.RLA2 Orig Print D/T: S: 05/18/2019 (0000) PAGE 2 Signed Report [id number] 22:38:00* Test Item Value Reference Range Interpretation Comments GLUBED (test code = GLUBED) 373 mg/dL 74-106 H Performed by certified ripper operator at [facility] [id number] 22:38:00* Test Item Value Reference Range Interpretation Comments GLUBED (test code = GLUBED) 422 mg/dL 74-106 H Performed by certified ripper operator at [facility] - CT HEAD/BRAIN W/O [id number] 22:09:00 Name: KALYANI TALAVERA [facility] : 1955 Age/S: 64 / F [address] [place] Unit #: [id number] Loc: [place] [address] Phys: Leonora Goins MD Acct: [id number] Dis Date: Status: REG ER PHONE #: [phone] Exam Date: 05/17/2019 2119 FAX #: [phone] Reason: weakness EXAMS: CPT CODE: [id number] CT HEAD/BRAIN W/O CONT 85856 HISTORY: weakness TECHNIQUE: Noncontrast 2.5 mm axial [...] or change from prior exam. Location: [facility] at 2209 Reported and signed by: Dago Goodson MD CC: Chris Nur MD; Leonora Goins MD Technologist:KIZZY VERDE RT(R) CT CTDI: DLP: Trnscb Date/Time: 05/17/2019 (2208) t.SDR.RR31 Orig Print D/T: S: 05/17/2019 (2211) PAGE 1 Signed Report BASIC METABOLIC [id number] 22:03:00* Test Item Value Reference Range Interpretation [...] CA) 8.6 mg/dL 8.5-10.1 N HEPATIC FUNCTION [id number] 22:03:00* Test Item Value Reference Range Interpretation [...] reference range due to change in reagent. [id number] 22:03:00* Test Item Value Reference Range Interpretation Comments LIPASE (test code = LIP) 105 U/L 73.0-393.0 N [id number] 22:03:00* Test Item Value Reference Range Interpretation Comments TROPONIN-I (test code = TROPI) <0.015 ng/mL 0-0.045 N - XR CHEST 1 [id number] 22:01:00 FAX: Amish Nur, [place]: St: REG FAX: Leonora Norton [phone] Name: KALYANI TALAVERA [facility] : 1955 Age/S: 64/F [address] [facility] Unit #: [id number] Loc: [place] [address] Phys: Leonora Goins MD Acct: [id number] Dis Date: Status: REG ER PHONE #: [phone] Exam Date: 05/17/20192109 FAX #: [phone] Reason: WEAKNESS EXAMS: CPT CODE: [id number] XR CHEST 1 V 94935 REASON FOR EXAM: WEAKNESS Exam Order Date: 05/17/2019 8:44 PM Ordering M.D.: Leonora Goisn MD PROCEDURE: - XR CHEST 1 V [...] secondary to diminished lung volumes. Location: [facility] at 2201 Reported and signed by: Dago Goodson MD CC: Lucille Land MD; Leonora Goins MD Technologist: EZEQUIEL CHAPA RT Trnscrd Date/Time/By: 05/17/2019 (2200) : By: [email or web address] Orig Print D/T: S: 05/17/2019 (5) PAGE 1 Signed Report URINALYSIS [id number] 21:54:00* Test Item Value Reference Range Interpretation [...] #/HPF NONE Urine Source? Clean CatchBASIC METABOLIC [id number] 21:42:00* Test Item Value Reference Range Interpretation [...] code = CA) mg/dL 8.5-10.1 HEPATIC FUNCTION [id number] 21:42:00* Test Item Value Reference Range Interpretation [...] TOTAL (test code = ALKP) IUnit/L 45-117 [id number] 21:42:00* Test Item Value Reference Range Interpretation Comments LIPASE (test code = LIP) U/L 73.0-393.0 [id number] 21:42:00* Test Item Value Reference Range Interpretation Comments TROPONIN-I (test code = TROPI) ng/mL 0-0.045 CBC W/O [id number] 21:33:00* Test Item Value Reference Range Interpretation [...] code = MPV) 10.9 fL 6.7-11.0 N [id number] 02:14:00* Test Item Value Reference Range Interpretation Comments GLUBED (test code = GLUBED) 359 mg/dL 74-106 H Performed by certified ripper operator at [facility] [id number] 01:04:00* Test Item Value Reference Range Interpretation Comments GLUBED (test code = GLUBED) 484 mg/dL 74-106 H Performed by certified ripper operator at [facility] URINALYSIS [id number] 00:11:00* Test Item Value Reference Range Interpretation [...] per HPF NONE Urine Source? Clean CatchURINALYSIS [id number] 00:07:00* Test Item Value Reference Range Interpretation [...] HPF NONE Urine Source? Clean CatchBASIC METABOLIC [id number] 23:16:00* Test Item Value Reference Range Interpretation [...] CA) 8.6 mg/dL 8.5-10.1 N HEPATIC FUNCTION [id number] 23:16:00* Test Item Value Reference Range Interpretation [...] reference range due to change in reagent. [id number] 23:16:00* Test Item Value Reference Range Interpretation Comments TROPONIN-I (test code = TROPI) <0.015 ng/mL 0-0.045 N BASIC METABOLIC [id number] 22:52:00* Test Item Value Reference Range Interpretation [...] code = CA) mg/dL 8.5-10.1 HEPATIC FUNCTION [id number] 22:52:00* Test Item Value Reference Range Interpretation [...] TOTAL (test code = ALKP) IUnit/L 45-117 [id number] 22:52:00* Test Item Value Reference Range Interpretation Comments TROPONIN-I (test code = TROPI) ng/mL 0-0.045 - CT HEAD/BRAIN W/O [id number] 22:44:00 Name: KALYANI TALAVERA [facility]: 1955 Age/S: 64 / F [address] Unit #: [id number] Loc: [place] [address] Phys: JeromeisabelaVince Astrid Acct: [id number] Dis Date: Status: REG ER PHONE #: [phone] Exam Date: 04/30/20192231 FAX #: [phone] Reason: headache/blurry vision EXAMS: CPT CODE: [id number] CT HEAD/BRAIN W/O CONT 95861 HISTORY: headache/blurry vision TECHNIQUE: Noncontrast 2.5 mm [...] by Dago Goodson MD on 04/30/2019 at 2249 Reporte d and signed by: Dago Goodson MD CC: Lucille Nur MD; Vince Jacobs DO Technologist:Arianna Hendrix RT(R); KIZZY Chavez CTDI: DL P: Trnscb Date/Time: 04/30/2019 (2747) t.SDR.RR31 O rig Print D/T: S: 04/30/2019 (7609) PAGE 1 Signed Re port CBC W/AUTO [id number] 22:43:00* Test Item Value Reference Range Interpretation [...] DIFF REQUIRED (test code = MDIFF) NO [id number] 22:16:00* Test Item Value Reference Range Interpretation Comments GLUBED (test code = GLUBED) > 500 mg/dL 74-106 HH Per[facility] certified [facility]ified [facility]~ KNEE RIGHT THREE [id number] 04:11:00 [place] [address] Patient Name: KALYANI TALAVERA MR #: [id number] : 1955 Age/Sex: 64/F Req #: [id number] Adm Physician: Ordered by: JACQUES JANE MD [...] 04/27/19411 COPY TO: JACQUES JANE MD Bedside Yyumerf4517-52-59 04:02:00* Test Item Value Reference Range Interpretation Comments Bedside Glucose (test code = 53622-4) 387 70-120 H Meter ID: [id number] [facility] Glucose 2019-04-18 04:02:00* Test Item Value Reference Range Interpretation Comments Bedside Glucose (test code = 87844-7) 387 70-120 H Meter ID: [id number] [facility] Glucose 2019-03-15 03:09:00* Test Item Value Reference Range Interpretation Comments Bedside Glucose (test code = 56651-3) 272 70-120 H Meter ID: [id number] [facility] Glucose 2019-03-15 03:09:00* Test Item Value Reference Range Interpretation Comments Bedside Glucose (test code = 44600-4) 272 70-120 H Meter ID: [id number] [facility]2019-03-15 03:03:00 [place] [address] Patient Name: KALYANI TALAVERA MR #: [id number] : 1955 Age/Sex: 64/F Req #: [id number] Adm Physician: Ordered by: JACQUES JANE MD Report #: [id number] Location: ER Room/Bed: Procedure: DX/CHEST SINGLE (PORTABLE) Exam Date: 03/15/19 Ex [...] 03/15/19313 COPY TO: JACQUES JANE MD Sodium Nizas9663-20-35 02:29:00* Test Item Value Reference Range Interpretation Comments Sodium Level (test code = 2951-2) 134 136-145 L [facility] Zyrdk5257-50-32 02:29:00* Test Item Value Reference Range Interpretation Comments Potassium Level (test code = 2823-3) 4.2 3.5-5.1 [facility] CenterChloride Vreik6986-61-84 02:29:00* Test Item Value Reference Range Interpretation Comments Chloride Level (test code = 2075-0) 99 98-107 [facility] CenterCar[facility] Dioxide Ffpwb3966-81-22 02:29:00* Test Item Value Reference Range Interpretation Comments Carbon Dioxide Level (test code = 2028-9) 25 22-29 [facility] CenterAnion [id number] 02:29:00* Test Item Value Reference Range Interpretation Comments Anion Gap (test code = 54601-5) 14.2 8-16 [facility] CenterBlood Urea Cawphsyj3024-65-57 02:29:00* Test Item Value Reference Range Interpretation Comments Blood Urea Nitrogen (test code = 3094-0) 26 7-26 [facility] CenterCreatinine2019-08-23 02:29:00* Test Item Value Reference Range Interpretation Comments Creatinine (test code = 2160-0) 1.11 0.57-1.11 [facility] CenterBUN/Creatinine Xwhap1083-56-12 02:29:00* Test Item Value Reference Range Interpretation Comments BUN/Creatinine Ratio (test code = 3097-3) 23 6- [facility] CenterEstimat Glomerular Filtration Rate 2019-03-15 02:29:00* Test Item Value Reference Range Interpretation Comments Estimat Glomerular Filtration Rate (test code = 777639167) 50 >60 L Ranges were taken from the National Kidney Disease Education Program and the [facility] Kidney Foundation literature.Reference ranges:60 or greater: Updwxn53-32 ( for 3 consecutive months): Chronic kidney disease 15 or less: Kidney failureCovenant Medical CenterGlucose Bzlkm0864-45-81 02:29:00* Test Item Value Reference Range Interpretation Comments Glucose Level (test code = MSS2956) 559 74-118 HH Results repeated and called to THELMA DONALDSON RN at 0229 on 03/15/19 by Francoise Proctor. Read back and verified.[facility] CenterCalcium Czqem6043-47-60 02:29:00* Test Item Value Reference Range Interpretation Comments Calcium Level (test code = 06496-2) 8.8 8.4-10.2 [facility] Umraq8206-71-04 02:29:00* Test Item Value Reference Range Interpretation Comments Sodium Level (test code = 2951-2) 134 136-145 L [facility] CenterPotassium Sxufn5760-90-94 02:29:00* Test Item Value Reference Range Interpretation Comments Potassium Level (test code = 2823-3) 4.2 3.5-5.1 [facility] CenterChloride Gxkyz7609-99-07 02:29:00* Test Item Value Reference Range Interpretation Comments Chloride Level (test code = 2075-0) 99 98-107 [facility] CenterCarbon Dioxide Ryudi2436-91-18 02:29:00* Test Item Value Reference Range Interpretation Comments Carbon Dioxide Level (test code = 2028-9) 25 22-29 [facility] CenterAnion Xed3585-88-86 02:29:00* Test Item Value Reference Range Interpretation Comments Anion Gap (test code = 07580-6) 14.2 8-16 [facility] CenterBlood Urea Oxqkxxts9974-71-80 02:29:00* Test Item Value Reference Range Interpretation Comments Blood Urea Nitrogen (test code = 3094-0) 26 7-26 [facility] CenterCreatinine2019-08-23 02:29:00* Test Item Value Reference Range Interpretation Comments Creatinine (test code = 2160-0) 1.11 0.57-1.11 [facility] CenterBUN/Creatinine Kdxvd3630-41-49 02:29:00* Test Item Value Reference Range Interpretation Comments BUN/Creatinine Ratio (test code = 3097-3) 23 6- [facility] CenterEstimat Glomerular Filtration Rate 2019-03-15 02:29:00* Test Item Value Reference Range Interpretation Comments Estimat Glomerular Filtration Rate (test code = 160342136) 50 >60 L Ranges were taken from the National Kidney Disease Education Program and the Jenise counts [facility] literature.Reference ranges:60 or greater: Niwbjx33-14 ( for 3 consecutive months): Chronic kidney disease 15 or less: Kidney failureCovenant Medical CenterGlucose Acfru8593-02-60 02:29:00* Test Item Value Reference Range Interpretation Comments Glucose Level (test code = ELP1822) 559 74-118 HH Results repeated and called to THELMA DONALDSON RN at 0229 on 03/15/19 by Francoise Proctor. Read back and verified.[facility] CenterCalcium Bogvt5022-89-35 02:29:00* Test Item Value Reference Range Interpretation Comments Calcium Level (test code = 53279-0) 8.8 8.4-10.2 [facility] Centerodium Uizyk0102-23-57 02:29:00* Test Item Value Reference Range Interpretation Comments Sodium Level (test code = 2951-2) 134 136-145 L [facility] CenterPotassium Ocwtr0065-53-94 02:29:00* Test Item Value Reference Range Interpretation Comments Potassium Level (test code = 2823-3) 4.2 3.5-5.1 [facility] CenterChloride Ttptx0931-01-12 02:29:00* Test Item Value Reference Range Interpretation Comments Chloride Level (test code = 2075-0) 99 98-107 [facility] CenterCarbon Dioxide Zsqjt8889-17-05 02:29:00* Test Item Value Reference Range Interpretation Comments Carbon Dioxide Level (test code = 2028-9) 25 22-29 [facility] CenterAnion Lld7593-87-45 02:29:00* Test Item Value Reference Range Interpretation Comments Anion Gap (test code = 36022-5) 14.2 8-16 [facility] CenterBlood Urea Lqjiyckj3857-35-65 02:29:00* Test Item Value Reference Range Interpretation Comments Blood Urea Nitrogen (test code = 3094-0) 26 7-26 [facility] CenterCreatinine2019-08-23 02:29:00* Test Item Value Reference Range Interpretation Comments Creatinine (test code = 2160-0) 1.11 0.57-1.11 [facility] CenterBUN/Creatinine Snluh7162-48-76 02:29:00* Test Item Value Reference Range Interpretation Comments BUN/Creatinine Ratio (test code = 3097-3) 23 6- [facility] CenterEstimat Glomerular Filtration Rate 2019-03-15 02:29:00* Test Item Value Reference Range Interpretation Comments Estimat Glomerular Filtration Rate (test code = 900873418) 50 >60 L Ranges were taken from the National Kidney Disease Education Program and the Jenise counts [facility] literature.Reference ranges:60 or greater: Pukkjh41-62 ( for 3 consecutive months): Chronic kidney disease 15 or less: Kidney failureCovenant Medical CenterGlucose Bpqmz0115-32-64 02:29:00* Test Item Value Reference Range Interpretation Comments Glucose Level (test code = QBJ0901) 556 74-118 HH Results repeated and called to THELMA DONALDSON RN at 0229 on 03/15/19 by Francoise Proctor. Read back and verified.[facility] CenterCalcium Tipoc0384-49-20 02:29:00* Test Item Value Reference Range Interpretation Comments Calcium Level (test code = 14734-5) 8.8 8.4-10.2 [facility] Centerodium Jxmgf8211-99-84 02:29:00* Test Item Value Reference Range Interpretation Comments Sodium Level (test code = 2951-2) 134 136-145 L [facility] CenterPotassium Gjsmj4964-11-39 02:29:00* Test Item Value Reference Range Interpretation Comments Potassium Level (test code = 2823-3) 4.2 3.5-5.1 [facility] CenterChloride Zkcrt0015-95-05 02:29:00* Test Item Value Reference Range Interpretation Comments Chloride Level (test code = 2075-0) 99 98-107 [facility] CenterCarbon Dioxide Tdwsx7836-71-89 02:29:00* Test Item Value Reference Range Interpretation Comments Carbon Dioxide Level (test code = 2028-9) 25 22-29 [facility] CenterAnion Ywt6938-15-95 02:29:00* Test Item Value Reference Range Interpretation Comments Anion Gap (test code = 57551-8) 14.2 8-16 [facility] CenterBlood Urea Kihyfunq9142-64-09 02:29:00* Test Item Value Reference Range Interpretation Comments Blood Urea Nitrogen (test code = 3094-0) 26 7-26 [facility] CenterCreatinine2019-08-23 02:29:00* Test Item Value Reference Range Interpretation Comments Creatinine (test code = 2160-0) 1.11 0.57-1.11 [facility] CenterBUN/Creatinine Woyyq8741-12-01 02:29:00* Test Item Value Reference Range Interpretation Comments BUN/Creatinine Ratio (test code = 3097-3) 23 6-25 [facility] CenterEstimat Glomerular Filtration Rate 2019-03-15 02:29:00* Test Item Value Reference Range Interpretation Comments Estimat Glomerular Filtration Rate (test code = 069097892) 50 >60 L Ranges were taken from the National Kidney Disease Education Program and the Jenise counts [facility] literature.Reference ranges:60 or greater: Kjxjqc18-61 ( for 3 consecutive months): Chronic kidney disease 15 or less: Kidney failureCovenant Medical CenterGlucose Zcrjq3782-10-13 02:29:00* Test Item Value Reference Range Interpretation Comments Glucose Level (test code = SCA2169) 542 69-118 HH Results repeated and called to THELMA DONALDSONRN at 0229 on 03/15/19 by Francoise Proctor. Read back and verified.[facility] CenterCalcium Pojam1637-71-36 02:29:00* Test Item Value Reference Range Interpretation Comments Calcium Level (test code = 34333-8) 8.8 8.4-10.2 [facility] CenterWhite Blood Kqakw9209-13-42 02:16:00* Test Item Value Reference Range Interpretation Comments White Blood Count (test code = 6690-2) 5.52 4.8-10.8 [facility] CenterRed Blood Nleju7130-80-56 02:16:00* Test Item Value Reference Range Interpretation Comments Red Blood Count (test code = 789-8) 4.47 3.6-5.1 [facility] CenterHemoglobin2019[facility] 02:16:00* Test Item Value Reference Range Interpretation Comments Hemoglobin (test code = 42221-9) 11.3 12.0-16.0 L [facility] CenterHematocrit2019-08-23 02:16:00* Test Item Value Reference Range Interpretation Comments Hematocrit (test code = 4544-3) 38.1 34.2-44.1 [facility] CenterMean Corpuscular Rwwzfs5413-75-52 02:16:00* Test Item Value Reference Range Interpretation Comments Mean Corpuscular Volume (test code = 787-2) 85.2 81-99 [facility] CenterMean Corpuscular Nvcqxeusyx8356-85-77 02:16:00* Test Item Value Reference Range Interpretation Comments Mean Corpuscular Hemoglobin (test code = 785-6) 25.3 28-32 L [facility] CenterMean Corpuscular Hemoglobin Concent 2019-03-15 02:16:00* Test Item Value Reference Range Interpretation Comments Mean Corpuscular Hemoglobin Concent (test code = 786-4) 29.7 31-35 L [facility] CenterRed Cell Distribution Uiemc1038-83-35 02:16:00* Test Item Value Reference Range Interpretation Comments Red Cell Distribution Width (test code = 23361-0) 16.0 11.7 -14.4 H [facility] CenterPlatelet Raaes3614-53-38 02:16:00* Test Item Value Reference Range Interpretation Comments Platelet Count (test code = 777-3) 175 140-360 [facility] CenterNeutrophils (%) (Auto)2019-03-15 02:16:00 * Test Item Value Reference Range Interpretation Comments Neutrophils (%) (Auto) (test code = 64383-4) 71.8 38.7-80.0 [facility] CenterLymphocytes (%) (Auto)2019-03-15 02:16:00 * Test Item Value Reference Range Interpretation Comments Lymphocytes (%) (Auto) (test code = 736-9) 20.1 18.0-39.1 [facility] CenterMonocytes (%) (Auto)2019-03-15 02:16:00* Test Item Value Reference Range Interpretation Comments Monocytes (%) (Auto) (test code = 5905-5) 3.8 4.4-11.3 L [facility] CenterEosinophils (%) (Auto)2019-03-15 02:16:00 * Test Item Value Reference Range Interpretation Comments Eosinophils (%) (Auto) (test code = 713-8) 1.8 0.0-6.0 [facility] CenterBasophils (%) (Auto)2019-03-15 02:16:00* Test Item Value Reference Range Interpretation Comments Basophils (%) (Auto) (test code = 706-2) 0.9 0.0-1.0 [facility] CenterIM GRANULOCYTES %2019-03-15 02:16:00* Test Item Value Reference Range Interpretation Comments IM GRANULOCYTES % (test code = IM GRANULOCYTES %) 1.6 0.0- 1.0 H [facility] CenterNeutrophils # (Auto)2019-03-15 02:16:00* Test Item Value Reference Range Interpretation Comments Neutrophils # (Auto) (test code = 751-8) 4.0 2.1-6.9 [facility] CenterLymphocytes # (Auto)2019-03-15 02:16:00* Test Item Value Reference Range Interpretation Comments Lymphocytes # (Auto) (test code = 40596-5) 1.1 1.0-3.2 [facility] CenterMonocytes # (Auto)2019-03-15 02:16:00* Test Item Value Reference Range Interpretation Comments Monocytes # (Auto) (test code = 742-7) 0.2 0.2-0.8 [facility] CenterEosinophils # (Auto)2019-03-15 02:16:00* Test Item Value Reference Range Interpretation Comments Eosinophils # (Auto) (test code = 711-2) 0.1 0.0-0.4 [facility] CenterBasophils # (Auto)2019-03-15 02:16:00* Test Item Value Reference Range Interpretation Comments Basophils # (Auto) (test code = 704-7) 0.1 0.0-0.1 [facility] CenterAbsolute Immature Granulocyte (auto 2019-03-15 02:16:00* Test Item Value Reference Range Interpretation Comments Absolute Immature Granulocyte (auto (joseph t code = Absolute Immature Granulocyte (auto) 0.09 0-0.1 [facility] CenterWhite Blood Vonuw1436-00-31 02:16:00* Test Item Value Reference Range Interpretation Comments White Blood Count (test code = 6690-2) 5.52 4.8-10.8 [facility] CenterRed Blood Iniae2317-04-44 02:16:00* Test Item Value Reference Range Interpretation Comments Red Blood Count (test code = 789-8) 4.47 3.6-5.1 [facility] CenterHemoglobin2019-08-23 02:16:00* Test Item Value Reference Range Interpretation Comments Hemoglobin (test code = 69454-4) 11.3 12.0-16.0 L [facility] CenterHematocrit2019-08-23 02:16:00* Test Item Value Reference Range Interpretation Comments Hematocrit (test code = 4544-3) 38.1 34.2-44.1 [facility] CenterMean Corpuscular Chpryz0478-00-88 02:16:00* Test Item Value Reference Range Interpretation Comments Mean Corpuscular Volume (test code = 787-2) 85.2 81-99 [facility] CenterMean Corpuscular Jjbsoseoto4574-43-11 02:16:00* Test Item Value Reference Range Interpretation Comments Mean Corpuscular Hemoglobin (test code = 785-6) 25.3 28-32 L [facility] CenterMean Corpuscular Hemoglobin Concent 2019-03-15 02:16:00* Test Item Value Reference Range Interpretation Comments Mean Corpuscular Hemoglobin Concent (test code = 786-4) 29.7 31-35 L [facility] CenterRed Cell Distribution Bkbpg1770-08-17 02:16:00* Test Item Value Reference Range Interpretation Comments Red Cell Distribution Width (test code = 02827-4) 16.0 11.7 -14.4 H [facility] CenterPlatelet Jvslt0255-83-68 02:16:00* Test Item Value Reference Range Interpretation Comments Platelet Count (test code = 777-3) 175 140-360 [facility] CenterNeutrophils (%) (Auto)2019-03-15 02:16:00 * Test Item Value Reference Range Interpretation Comments Neutrophils (%) (Auto) (test code = 36034-8) 71.8 38.7-80.0 [facility] CenterLymphocytes (%) (Auto)2019-03-15 02:16:00 * Test Item Value Reference Range Interpretation Comments Lymphocytes (%) (Auto) (test code = 736-9) 20.1 18.0-39.1 [facility] CenterMonocytes (%) (Auto)2019-03-15 02:16:00* Test Item Value Reference Range Interpretation Comments Monocytes (%) (Auto) (test code = 5905-5) 3.8 4.4-11.3 L [facility] CenterEosinophils (%) (Auto)2019-03-15 02:16:00 * Test Item Value Reference Range Interpretation Comments Eosinophils (%) (Auto) (test code = 713-8) 1.8 0.0-6.0 [facility] CenterBasophils (%) (Auto)2019-03-15 02:16:00* Test Item Value Reference Range Interpretation Comments Basophils (%) (Auto) (test code = 706-2) 0.9 0.0-1.0 [facility] CenterIM GRANULOCYTES %2019-03-15 02:16:00* Test Item Value Reference Range Interpretation Comments IM GRANULOCYTES % (test code = IM GRANULOCYTES %) 1.6 0.0- 1.0 H [facility] CenterNeutrophils # (Auto)2019-03-15 02:16:00* Test Item Value Reference Range Interpretation Comments Neutrophils # (Auto) (test code = 751-8) 4.0 2.1-6.9 [facility] CenterLymphocytes # (Auto)2019-03-15 02:16:00* Test Item Value Reference Range Interpretation Comments Lymphocytes # (Auto) (test code = 46689-0) 1.1 1.0-3.2 [facility] CenterMonocytes # (Auto)2019-03-15 02:16:00* Test Item Value Reference Range Interpretation Comments Monocytes # (Auto) (test code = 742-7) 0.2 0.2-0.8 [facility] CenterEosinophils # (Auto)2019-03-15 02:16:00* Test Item Value Reference Range Interpretation Comments Eosinophils # (Auto) (test code = 711-2) 0.1 0.0-0.4 [facility] CenterBasophils # (Auto)2019-03-15 02:16:00* Test Item Value Reference Range Interpretation Comments Basophils # (Auto) (test code = 704-7) 0.1 0.0-0.1 [facility] CenterAbsolute Immature Granulocyte (auto 2019-03-15 02:16:00* Test Item Value Reference Range Interpretation Comments Absolute Immature Granulocyte (auto (joseph t code = Absolute Immature Granulocyte (auto) 0.09 0-0.1 [facility] CenterWhite Blood Uoyul5458-01-91 02:16:00* Test Item Value Reference Range Interpretation Comments White Blood Count (test code = 6690-2) 5.52 4.8-10.8 [facility] CenterRed Blood Uaczq5479-69-80 02:16:00* Test Item Value Reference Range Interpretation Comments Red Blood Count (test code = 789-8) 4.47 3.6-5.1 [facility] CenterHemoglobin2019-08-23 02:16:00* Test Item Value Reference Range Interpretation Comments Hemoglobin (test code = 18240-2) 11.3 12.0-16.0 L [facility] CenterHematocrit2019-08-23 02:16:00* Test Item Value Reference Range Interpretation Comments Hematocrit (test code = 4544-3) 38.1 34.2-44.1 [facility] CenterMean Corpuscular Popkjb3515-74-48 02:16:00* Test Item Value Reference Range Interpretation Comments Mean Corpuscular Volume (test code = 787-2) 85.2 81-99 [facility] CenterMean Corpuscular Sutlxztvtl9640-50-87 02:16:00* Test Item Value Reference Range Interpretation Comments Mean Corpuscular Hemoglobin (test code = 785-6) 25.3 28-32 L [facility] CenterMean Corpuscular Hemoglobin Concent 2019-03-15 02:16:00* Test Item Value Reference Range Interpretation Comments Mean Corpuscular Hemoglobin Concent (test code = 786-4) 29.7 31-35 L [facility] CenterRed Cell Distribution Ofpoc8424-05-66 02:16:00* Test Item Value Reference Range Interpretation Comments Red Cell Distribution Width (test code = 52388-1) 16.0 11.7 -14.4 H [facility] CenterPlatelet Qyyxb0640-26-71 02:16:00* Test Item Value Reference Range Interpretation Comments Platelet Count (test code = 777-3) 175 140-360 [facility] CenterNeutrophils (%) (Auto)2019-03-15 02:16:00 * Test Item Value Reference Range Interpretation Comments Neutrophils (%) (Auto) (test code = 88270-3) 71.8 38.7-80.0 [facility] CenterLymphocytes (%) (Auto)2019-03-15 02:16:00 * Test Item Value Reference Range Interpretation Comments Lymphocytes (%) (Auto) (test code = 736-9) 20.1 18.0-39.1 [facility] CenterMonocytes (%) (Auto)2019-03-15 02:16:00* Test Item Value Reference Range Interpretation Comments Monocytes (%) (Auto) (test code = 5905-5) 3.8 4.4-11.3 L [facility] CenterEosinophils (%) (Auto)2019-03-15 02:16:00 * Test Item Value Reference Range Interpretation Comments Eosinophils (%) (Auto) (test code = 713-8) 1.8 0.0-6.0 [facility] CenterBasophils (%) (Auto)2019-03-15 02:16:00* Test Item Value Reference Range Interpretation Comments Basophils (%) (Auto) (test code = 706-2) 0.9 0.0-1.0 [facility] CenterIM GRANULOCYTES %2019-03-15 02:16:00* Test Item Value Reference Range Interpretation Comments IM GRANULOCYTES % (test code = IM GRANULOCYTES %) 1.6 0.0- 1.0 H [facility] CenterNeutrophils # (Auto)2019-03-15 02:16:00* Test Item Value Reference Range Interpretation Comments Neutrophils # (Auto) (test code = 751-8) 4.0 2.1-6.9 [facility] CenterLymphocytes # (Auto)2019-03-15 02:16:00* Test Item Value Reference Range Interpretation Comments Lymphocytes # (Auto) (test code = 63722-7) 1.1 1.0-3.2 [facility] CenterMonocytes # (Auto)2019-03-15 02:16:00* Test Item Value Reference Range Interpretation Comments Monocytes # (Auto) (test code = 742-7) 0.2 0.2-0.8 [facility] CenterEosinophils # (Auto)2019-03-15 02:16:00* Test Item Value Reference Range Interpretation Comments Eosinophils # (Auto) (test code = 711-2) 0.1 0.0-0.4 [facility] CenterBasophils # (Auto)2019-03-15 02:16:00* Test Item Value Reference Range Interpretation Comments Basophils # (Auto) (test code = 704-7) 0.1 0.0-0.1 [facility] CenterAbsolute Immature Granulocyte (auto 2019-03-15 02:16:00* Test Item Value Reference Range Interpretation Comments Absolute Immature Granulocyte (auto (joseph t code = Absolute Immature Granulocyte (auto) 0.09 0-0.1 [facility] CenterWhite Blood Qglpq4494-92-30 02:16:00* Test Item Value Reference Range Interpretation Comments White Blood Count (test code = 6690-2) 5.52 4.8-10.8 [facility] CenterRed Blood Psjqb5280-71-06 02:16:00* Test Item Value Reference Range Interpretation Comments Red Blood Count (test code = 789-8) 4.47 3.6-5.1 [facility] CenterHemoglobin2019-08-23 02:16:00* Test Item Value Reference Range Interpretation Comments Hemoglobin (test code = 37093-2) 11.3 12.0-16.0 L [facility] CenterHematocrit2019-08-23 02:16:00* Test Item Value Reference Range Interpretation Comments Hematocrit (test code = 4544-3) 38.1 34.2-44.1 [facility] CenterMean Corpuscular Eeqtud3686-84-59 02:16:00* Test Item Value Reference Range Interpretation Comments Mean Corpuscular Volume (test code = 787-2) 85.2 81-99 [facility] CenterMean Corpuscular Lkmhsjeezh3476-54-36 02:16:00* Test Item Value Reference Range Interpretation Comments Mean Corpuscular Hemoglobin (test code = 785-6) 25.3 28-32 L [facility] CenterMean Corpuscular Hemoglobin Concent 2019-03-15 02:16:00* Test Item Value Reference Range Interpretation Comments Mean Corpuscular Hemoglobin Concent (test code = 786-4) 29.7 31-35 L [facility] CenterRed Cell Distribution Tdawy4761-18-53 02:16:00* Test Item Value Reference Range Interpretation Comments Red Cell Distribution Width (test code = 98948-7) 16.0 11.7 -14.4 H [facility] CenterPlatelet Yjbjt5748-14-38 02:16:00* Test Item Value Reference Range Interpretation Comments Platelet Count (test code = 777-3) 175 140-360 [facility] CenterNeutrophils (%) (Auto)2019-03-15 02:16:00 * Test Item Value Reference Range Interpretation Comments Neutrophils (%) (Auto) (test code = 69215-3) 71.8 38.7-80.0 [facility] CenterLymphocytes (%) (Auto)2019-03-15 02:16:00 * Test Item Value Reference Range Interpretation Comments Lymphocytes (%) (Auto) (test code = 736-9) 20.1 18.0-39.1 [facility] CenterMonocytes (%) (Auto)2019-03-15 02:16:00* Test Item Value Reference Range Interpretation Comments Monocytes (%) (Auto) (test code = 5905-5) 3.8 4.4-11.3 L [facility] CenterEosinophils (%) (Auto)2019-03-15 02:16:00 * Test Item Value Reference Range Interpretation Comments Eosinophils (%) (Auto) (test code = 713-8) 1.8 0.0-6.0 [facility] CenterBasophils (%) (Auto)2019-03-15 02:16:00* Test Item Value Reference Range Interpretation Comments Basophils (%) (Auto) (test code = 706-2) 0.9 0.0-1.0 [facility] CenterIM GRANULOCYTES %2019-03-15 02:16:00* Test Item Value Reference Range Interpretation Comments IM GRANULOCYTES % (test code = IM GRANULOCYTES %) 1.6 0.0- 1.0 H [facility] CenterNeutrophils # (Auto)2019-03-15 02:16:00* Test Item Value Reference Range Interpretation Comments Neutrophils # (Auto) (test code = 751-8) 4.0 2.1-6.9 [facility] CenterLymphocytes # (Auto)2019-03-15 02:16:00* Test Item Value Reference Range Interpretation Comments Lymphocytes # (Auto) (test code = 72327-8) 1.1 1.0-3.2 [facility] CenterMonocytes # (Auto)2019-03-15 02:16:00* Test Item Value Reference Range Interpretation Comments Monocytes # (Auto) (test code = 742-7) 0.2 0.2-0.8 [facility] CenterEosinophils # (Auto)2019-03-15 02:16:00* Test Item Value Reference Range Interpretation Comments Eosinophils # (Auto) (test code = 711-2) 0.1 0.0-0.4 [facility] CenterBasophils # (Auto)2019-03-15 02:16:00* Test Item Value Reference Range Interpretation Comments Basophils # (Auto) (test code = 704-7) 0.1 0.0-0.1 [facility] CenterAbsolute Immature Granulocyte (auto 2019-03-15 02:16:00* Test Item Value Reference Range Interpretation Comments Absolute Immature Granulocyte (auto (joseph t code = Absolute Immature Granulocyte (auto) 0.09 0-0.1 [facility] CenterBedside Htpjlxd3679-73-71 05:15:00* Test Item Value Reference Range Interpretation Comments Bedside Glucose (test code = 98149-3) 329 70-120 H Meter ID: [id number] [facility] 2019-02-24 01:23:00 [place] [address] Patient Name: KALYANI TALAVERA MR #: [id number] : 1955 Age/Sex: 63/F Req #: [id number] Adm Physician: Ordered by: JACQUES JANE MD Report #: [id number] Location: ER Room/Bed: Procedure: 43 DX/FOREARM LEFT [...] 02/24/19123 COPY TO: JACQUES JANE MD Sodium Rxojn7990-67-41 00:35:00* Test Item Value Reference Range Interpretation Comments Sodium Level (test code = 2951-2) 135 136-145 L [facility] CenterPotassium Ldkcy2925-53-72 00:35:00* Test Item Value Reference Range Interpretation Comments Potassium Level (test code = 2823-3) 4.4 3.5-5.1 [facility] CenterChloride Iouvj4305-11-12 00:35:00* Test Item Value Reference Range Interpretation Comments Chloride Level (test code = 2075-0) 102 98-107 [facility] CenterCarbon Dioxide Icqdp4426-63-14 00:35:00* Test Item Value Reference Range Interpretation Comments Carbon Dioxide Level (test code = 2028-9) 21 22-29 L [facility] CenterAnion Htz0631-21-81 00:35:00* Test Item Value Reference Range Interpretation Comments Anion Gap (test code = 09625-8) 16.4 8-16 H [facility] CenterBlood Urea Qgvighfd9860-79-06 00:35:00* Test Item Value Reference Range Interpretation Comments Blood Urea Nitrogen (test code = 3094-0) 24 7-26 [facility] CenterCreatinine2019-08-04 00:35:00* Test Item Value Reference Range Interpretation Comments Creatinine (test code = 2160-0) 1.44 0.57-1.11 H [facility] CenterBUN/Creatinine Cfqww8407-24-32 00:35:00* Test Item Value Reference Range Interpretation Comments BUN/Creatinine Ratio (test code = 3097-3) 17 6-25 [facility] CenterEstimat Glomerular Filtration Rate 2019-02-24 00:35:00* Test Item Value Reference Range Interpretation Comments Estimat Glomerular Filtration Rate (test code = 414806856) 37 >60 L Ranges were taken from the National Kidney Disease Education Program and the Jenise counts include [facility] literature.Reference ranges:60 or greater: Oqzine35-15 ( for 3 consecutive months): Chronic kidney disease 15 or less: Kidney failureCovenant Medical CenterGlucose Pgqjg8433-50-50 00:35:00* Test Item Value Reference Range Interpretation Comments Glucose Level (test code = OOA6181) 665 74-118 Results repeated and called to SHILPA Jack at 0034 on 02/24/19 by Sagar Alegria. Malinda simpson back and verified.[facility] CenterCalcium Level 2019-02-24 00:35:00* Test Item Value Reference Range Interpretation Comments Calcium Level (test code = 56054-3) 9.5 8.4-10.2 [facility] Owvojpxkv2455-42-72 00:35:00* Test Item Value Reference Range Interpretation Comments Total Bilirubin (test code = 1975-2) 0.3 0.2-1.2 [facility] CenterAspartate Amino Transf (AST/SGOT) 2019-02-24 00:35:00* Test Item Value Reference Range Interpretation Comments Aspartate Amino Transf (AST/SGOT) (test code = Aspartate Amino Transf (AST/SGOT)) 12 5-34 [facility] CenterAlanine Aminotransferase (ALT/SGPT) 2019-02-24 00:35:00* Test Item Value Reference Range Interpretation Comments Alanine Aminotransferase (ALT/SGPT) (test code = 1742-6) 23 0-55 [facility] Vnfkqrm5031-49-20 00:35:00* Test Item Value Reference Range Interpretation Comments Total Protein (test code = 2885-2) 6.7 6.5-8.1 [facility] CenterAlbumin2019-08-04 00:35:00* Test Item Value Reference Range Interpretation Comments Albumin (test code = 1751-7) 3.5 3.5-5.0 [facility] CenterGlobulin2019-08-04 00:35:00* Test Item Value Reference Range Interpretation Comments Globulin (test code = 23198-9) 3.2 2.3-3.5 [facility] CenterAlbumin/Globulin Uaocs6549-56-52 00:35:00 * Test Item Value Reference Range Interpretation Comments Albumin/Globulin Ratio (test code = 1759-0) 1.1 0.8-2.0 [facility] CenterAlkaline Ibnseqgqiep7208-61-15 00:35:00* Test Item Value Reference Range Interpretation Comments Alkaline Phosphatase (test code = 6768-6) 82 40-150 [facility] Mexqamdxt0431-41-68 00:35:00* Test Item Value Reference Range Interpretation Comments Total Bilirubin (test code = 1975-2) 0.3 0.2-1.2 [facility] CenterAspartate Amino Transf (AST/SGOT) 2019-02-24 00:35:00* Test Item Value Reference Range Interpretation Comments Aspartate Amino Transf (AST/SGOT) (test code = Aspartate Amino Transf (AST/SGOT)) [facility] CenterAlanine Aminotransferase (ALT/SGPT) 2019-02-24 00:35:00* Test Item Value Reference Range Interpretation Comments Alanine Aminotransferase (ALT/SGPT) (test code = 1742-6) 23 0-55 [facility] CenterTotal Iofromu8998-38-16 00:35:00* Test Item Value Reference Range Interpretation Comments Total Protein (test code = 2885-2) 6.7 6.5-8.1 [facility] CenterAlbumin2019-08-04 00:35:00* Test Item Value Reference Range Interpretation Comments Albumin (test code = 1751-7) 3.5 3.5-5.0 [facility] CenterGlobulin2019-08-04 00:35:00* Test Item Value Reference Range Interpretation Comments Globulin (test code = 16759-0) 3.2 2.3-3.5 [facility] CenterAlbumin/Globulin Hfmsd7473-49-67 00:35:00 * Test Item Value Reference Range Interpretation Comments Albumin/Globulin Ratio (test code = 1759-0) 1.1 0.8-2.0 [facility] CenterAlkaline Ifwiqbodogv1147-77-42 00:35:00* Test Item Value Reference Range Interpretation Comments Alkaline Phosphatase (test code = 6768-6) 82 40-150 [facility] CenterTotal Rceiyggvm2531-05-01 00:35:00* Test Item Value Reference Range Interpretation Comments Total Bilirubin (test code = 1975-2) 0.3 0.2-1.2 [facility] CenterAspartate Amino Transf (AST/SGOT) 2019-02-24 00:35:00* Test Item Value Reference Range Interpretation Comments Aspartate Amino Transf (AST/SGOT) (test code = Aspartate Amino Transf (AST/SGOT)) [facility] CenterAlanine Aminotransferase (ALT/SGPT) 2019-02-24 00:35:00* Test Item Value Reference Range Interpretation Comments Alanine Aminotransferase (ALT/SGPT) (test code = 1742-6) 23 0-55 [facility] CenterTotal Uhtcnum0299-80-04 00:35:00* Test Item Value Reference Range Interpretation Comments Total Protein (test code = 2885-2) 6.7 6.5-8.1 [facility] CenterAlbumin2019-08-04 00:35:00* Test Item Value Reference Range Interpretation Comments Albumin (test code = 1751-7) 3.5 3.5-5.0 [facility] CenterGlobulin2019-08-04 00:35:00* Test Item Value Reference Range Interpretation Comments Globulin (test code = 37552-7) 3.2 2.3-3.5 [facility] CenterAlbumin/Globulin Ukwwd2085-67-62 00:35:00 * Test Item Value Reference Range Interpretation Comments Albumin/Globulin Ratio (test code = 1759-0) 1.1 0.8-2.0 [facility] CenterAlkaline Vlsntutsmli2369-74-94 00:35:00* Test Item Value Reference Range Interpretation Comments Alkaline Phosphatase (test code = 6768-6) 82 40-150 [facility] CenterTotal Rnamfaqpp7191-28-54 00:35:00* Test Item Value Reference Range Interpretation Comments Total Bilirubin (test code = 1975-2) 0.3 0.2-1.2 [facility] CenterAspartate Amino Transf (AST/SGOT) 2019-02-24 00:35:00* Test Item Value Reference Range Interpretation Comments Aspartate Amino Transf (AST/SGOT) (test code = Aspartate Amino Transf (AST/SGOT)) 12 5-34 [facility] CenterAlanine Aminotransferase (ALT/SGPT) 2019-02-24 00:35:00* Test Item Value Reference Range Interpretation Comments Alanine Aminotransferase (ALT/SGPT) (test code = 1742-6) 23 0-55 [facility] CenterTotal Yuetyfd2850-35-03 00:35:00* Test Item Value Reference Range Interpretation Comments Total Protein (test code = 2885-2) 6.7 6.5-8.1 [facility] CenterAlbumin2019-08-04 00:35:00* Test Item Value Reference Range Interpretation Comments Albumin (test code = 1751-7) 3.5 3.5-5.0 [facility] CenterGlobulin2019-08-04 00:35:00* Test Item Value Reference Range Interpretation Comments Globulin (test code = 42657-3) 3.2 2.3-3.5 [facility] CenterAlbumin/Globulin Elfuz0944-74-33 00:35:00 * Test Item Value Reference Range Interpretation Comments Albumin/Globulin Ratio (test code = 1759-0) 1.1 0.8-2.0 [facility] CenterAlkaline Bhnehfsufrl0352-73-63 00:35:00* Test Item Value Reference Range Interpretation Comments Alkaline Phosphatase (test code = 6768-6) 82 40-150 [facility] CenterTotal Gficyfryr3328-48-27 00:35:00* Test Item Value Reference Range Interpretation Comments Total Bilirubin (test code = 1975-2) 0.3 0.2-1.2 [facility] CenterAspartate Amino Transf (AST/SGOT) 2019-02-24 00:35:00* Test Item Value Reference Range Interpretation Comments Aspartate Amino Transf (AST/SGOT) (test code = Aspartate Amino Transf (AST/SGOT)) 12 5-34 [facility] CenterAlanine Aminotransferase (ALT/SGPT) 2019-02-24 00:35:00* Test Item Value Reference Range Interpretation Comments Alanine Aminotransferase (ALT/SGPT) (test code = 1742-6) 23 0-55 [facility] CenterTotal Uhpcgna5084-25-14 00:35:00* Test Item Value Reference Range Interpretation Comments Total Protein (test code = 2885-2) 6.7 6.5-8.1 [facility] CenterAlbumin2019-08-04 00:35:00* Test Item Value Reference Range Interpretation Comments Albumin (test code = 1751-7) 3.5 3.5-5.0 [facility] CenterGlobulin2019-08-04 00:35:00* Test Item Value Reference Range Interpretation Comments Globulin (test code = 78346-9) 3.2 2.3-3.5 [facility] CenterAlbumin/Globulin Cpkph9756-92-28 00:35:00 * Test Item Value Reference Range Interpretation Comments Albumin/Globulin Ratio (test code = 1759-0) 1.1 0.8-2.0 [facility] CenterAlkaline Ttdkptdatnb6040-04-15 00:35:00* Test Item Value Reference Range Interpretation Comments Alkaline Phosphatase (test code = 6768-6) 82 40-150 [facility] CenterWhite Blood Vyuum8142-57-64 00:18:00* Test Item Value Reference Range Interpretation Comments White Blood Count (test code = 6690-2) 5.09 4.8-10.8 [facility] CenterRed Blood Vmfva3351-28-93 00:18:00* Test Item Value Reference Range Interpretation Comments Red Blood Count (test code = 789-8) 4.64 3.6-5.1 [facility] CenterHemoglobin2019-08-04 00:18:00* Test Item Value Reference Range Interpretation Comments Hemoglobin (test code = 61263-8) 11.8 12.0-16.0 L [facility] CenterHematocrit2019-08-04 00:18:00* Test Item Value Reference Range Interpretation Comments Hematocrit (test code = 4544-3) 37.6 34.2-44.1 [facility] CenterMean Corpuscular Mjwqlh5441-17-65 00:18:00* Test Item Value Reference Range Interpretation Comments Mean Corpuscular Volume (test code = 787-2) 81.0 81-99 [facility] CenterMean Corpuscular Gkegswtoou3093-41-83 00:18:00* Test Item Value Reference Range Interpretation Comments Mean Corpuscular Hemoglobin (test code = 785-6) 25.4 28-32 L [facility] CenterMean Corpuscular Hemoglobin Concent 2019-02-24 00:18:00* Test Item Value Reference Range Interpretation Comments Mean Corpuscular Hemoglobin Concent (test code = 786-4) 31.4 31-35 [facility] CenterRed Cell Distribution Amelb0948-72-89 00:18:00* Test Item Value Reference Range Interpretation Comments Red Cell Distribution Width (test code = 18241-4) 15.5 11.7 -14.4 H [facility] CenterPlatelet Vatuh7250-35-51 00:18:00* Test Item Value Reference Range Interpretation Comments Platelet Count (test code = 777-3) 155 140-360 [facility] CenterNeutrophils (%) (Auto)2019-02-24 00:18:00 * Test Item Value Reference Range Interpretation Comments Neutrophils (%) (Auto) (test code = 43062-0) 69.6 38.7-80.0 [facility] CenterLymphocytes (%) (Auto)2019-02-24 00:18:00 * Test Item Value Reference Range Interpretation Comments Lymphocytes (%) (Auto) (test code = 736-9) 20.0 18.0-39.1 [facility] CenterMonocytes (%) (Auto)2019-02-24 00:18:00* Test Item Value Reference Range Interpretation Comments Monocytes (%) (Auto) (test code = 5905-5) 5.1 4.4-11.3 [facility] CenterEosinophils (%) (Auto)2019-02-24 00:18:00 * Test Item Value Reference Range Interpretation Comments Eosinophils (%) (Auto) (test code = 713-8) 3.3 0.0-6.0 [facility] CenterBasophils (%) (Auto)2019-02-24 00:18:00* Test Item Value Reference Range Interpretation Comments Basophils (%) (Auto) (test code = 706-2) 1.0 0.0-1.0 [facility] CenterIM GRANULOCYTES %2019-02-24 00:18:00* Test Item Value Reference Range Interpretation Comments IM GRANULOCYTES % (test code = IM GRANULOCYTES %) 1.0 0.0- 1.0 [facility] CenterNeutrophils # (Auto)2019-02-24 00:18:00* Test Item Value Reference Range Interpretation Comments Neutrophils # (Auto) (test code = 751-8) 3.5 2.1-6.9 [facility] CenterLymphocytes # (Auto)2019-02-24 00:18:00* Test Item Value Reference Range Interpretation Comments Lymphocytes # (Auto) (test code = 55533-0) 1.0 1.0-3.2 [facility] CenterMonocytes # (Auto)2019-02-24 00:18:00* Test Item Value Reference Range Interpretation Comments Monocytes # (Auto) (test code = 742-7) 0.3 0.2-0.8 [facility] CenterEosinophils # (Auto)2019-02-24 00:18:00* Test Item Value Reference Range Interpretation Comments Eosinophils # (Auto) (test code = 711-2) 0.2 0.0-0.4 [facility] CenterBasophils # (Auto)2019-02-24 00:18:00* Test Item Value Reference Range Interpretation Comments Basophils # (Auto) (test code = 704-7) 0.1 0.0-0.1 [facility] CenterAbsolute Immature Granulocyte (auto 2019-02-24 00:18:00* Test Item Value Reference Range Interpretation Comments Absolute Immature Granulocyte (auto (joseph t code = Absolute Immature Granulocyte (auto) 0.05 0-0.1 [facility] CenterBedside Bzwrett3345-59-61 12:27:00* Test Item Value Reference Range Interpretation Comments Bedside Glucose (test code = 03036-6) 302 70-120 H Meter ID: [id number] Army Medical Centerodium Level 2019-01-21 06:25:00* Test Item Value Reference Range Interpretation Comments Sodium Level (test code = 2951-2) 137 136-145 [facility] CenterPotassium Qyclo5144-37-82 06:25:00* Test Item Value Reference Range Interpretation Comments Potassium Level (test code = 2823-3) 4.8 3.5-5.1 [facility] CenterChloride Jgkyt5536-82-21 06:25:00* Test Item Value Reference Range Interpretation Comments Chloride Level (test code = 2075-0) 101 98-107 [facility] CenterCarbon Dioxide Uiglw4096-51-23 06:25:00* Test Item Value Reference Range Interpretation Comments Carbon Dioxide Level (test code = 8-9) 29 22-29 [facility] CenterAnion Oet9228-58-17 06:25:00* Test Item Value Reference Range Interpretation Comments Anion Gap (test code = 41408-1) 11.8 8-16 [facility] CenterBlood Urea Vrcqoyiv5192-12-24 06:25:00* Test Item Value Reference Range Interpretation Comments Blood Urea Nitrogen (test code = 3094-0) 17 7-26 [facility] CenterCreatinine2019-07-01 06:25:00* Test Item Value Reference Range Interpretation Comments Creatinine (test code = 2160-0) 0.98 0.57-1.11 [facility] CenterBUN/Creatinine Lrgds0303-23-70 06:25:00* Test Item Value Reference Range Interpretation Comments BUN/Creatinine Ratio (test code = 3097-3) 17 6-25 [facility] CenterEstimat Glomerular Filtration Rate 2019-01-21 06:25:00* Test Item Value Reference Range Interpretation Comments Estimat Glomerular Filtration Rate (test code = 065284672) 58 >60 L Ranges were taken from the National Kidney Disease Education Program and the Jenise counts [facility] literature.Reference ranges:60 or greater: Vunoti62-94 ( for 3 consecutive months): Chronic kidney disease 15 or less: Kidney failureCovenant Medical CenterGlucose Hapep6112-22-78 06:25:00* Test Item Value Reference Range Interpretation Comments Glucose Level (test code = KBM3206) 252 74-118 H [facility] CenterCalcium Fecgc2450-29-26 06:25:00* Test Item Value Reference Range Interpretation Comments Calcium Level (test code = 46409-0) 9.2 8.4-10.2 [facility] CenterTotal Acxghpfmd6979-85-80 06:25:00* Test Item Value Reference Range Interpretation Comments Total Bilirubin (test code = 1975-2) 0.2 0.2-1.2 [facility] CenterAspartate Amino Transf (AST/SGOT) 2019-01-21 06:25:00* Test Item Value Reference Range Interpretation Comments Aspartate Amino Transf (AST/SGOT) (test code = Aspartate Amino Transf (AST/SGOT)) 13 5-34 [facility] CenterAlanine Aminotransferase (ALT/SGPT) 2019-01-21 06:25:00* Test Item Value Reference Range Interpretation Comments Alanine Aminotransferase (ALT/SGPT) (test code = 1742-6) 17 0-55 [facility] CenterTotal Gltwsqc3882-75-98 06:25:00* Test Item Value Reference Range Interpretation Comments Total Protein (test code = 2885-2) 6.3 6.5-8.1 L [facility] CenterAlbumin2019-07-01 06:25:00* Test Item Value Reference Range Interpretation Comments Albumin (test code = 1751-7) 3.2 3.5-5.0 L [facility] CenterGlobulin2019-07-01 06:25:00* Test Item Value Reference Range Interpretation Comments Globulin (test code = 41579-5) 3.1 2.3-3.5 [facility] CenterAlbumin/Globulin Otcke1954-73-99 06:25:00 * Test Item Value Reference Range Interpretation Comments Albumin/Globulin Ratio (test code = 1759-0) 1.0 0.8-2.0 [facility] CenterAlkaline Jzxdwhdkgok6740-99-11 06:25:00* Test Item Value Reference Range Interpretation Comments Alkaline Phosphatase (test code = 6768-6) 78 40-150 [facility] CenterWhite Blood Eliue7463-28-09 06:21:00* Test Item Value Reference Range Interpretation Comments White Blood Count (test code = 6690-2) 4.81 4.8-10.8 [facility] CenterRed Blood Mpbgj6692-68-30 06:21:00* Test Item Value Reference Range Interpretation Comments Red Blood Count (test code = 789-8) 4.90 3.6-5.1 [facility] CenterHemoglobin2019-07-01 06:21:00* Test Item Value Reference Range Interpretation Comments Hemoglobin (test code = 99966-7) 12.0 12.0-16.0 [facility] CenterHematocrit2019-07-01 06:21:00* Test Item Value Reference Range Interpretation Comments Hematocrit (test code = 4544-3) 39.4 34.2-44.1 [facility] CenterMean Corpuscular Zlposj4911-02-24 06:21:00* Test Item Value Reference Range Interpretation Comments Mean Corpuscular Volume (test code = 787-2) 80.4 81-99 L [facility] CenterMean Corpuscular Lldlgkiweq6288-41-42 06:21:00* Test Item Value Reference Range Interpretation Comments Mean Corpuscular Hemoglobin (test code = 785-6) 24.5 28-32 L [facility] CenterMean Corpuscular Hemoglobin Concent 2019-01-21 06:21:00* Test Item Value Reference Range Interpretation Comments Mean Corpuscular Hemoglobin Concent (test code = 786-4) 30.5 31-35 L [facility] CenterRed Cell Distribution Snaje9214-07-89 06:21:00* Test Item Value Reference Range Interpretation Comments Red Cell Distribution Width (test code = 15285-2) 14.6 11.7 -14.4 H [facility] CenterPlatelet Ttfoj5319-80-55 06:21:00* Test Item Value Reference Range Interpretation Comments Platelet Count (test code = 777-3) 157 140-360 [facility] CenterNeutrophils (%) (Auto)2019-01-21 06:21:00 * Test Item Value Reference Range Interpretation Comments Neutrophils (%) (Auto) (test code = 66581-0) 62.2 38.7-80.0 [facility] CenterLymphocytes (%) (Auto)2019-01-21 06:21:00 * Test Item Value Reference Range Interpretation Comments Lymphocytes (%) (Auto) (test code = 736-9) 25.8 18.0-39.1 [facility] CenterMonocytes (%) (Auto)2019-01-21 06:21:00* Test Item Value Reference Range Interpretation Comments Monocytes (%) (Auto) (test code = 5905-5) 5.8 4.4-11.3 [facility] CenterEosinophils (%) (Auto)2019-01-21 06:21:00 * Test Item Value Reference Range Interpretation Comments Eosinophils (%) (Auto) (test code = 713-8) 5.0 0.0-6.0 [facility] CenterBasophils (%) (Auto)2019-01-21 06:21:00* Test Item Value Reference Range Interpretation Comments Basophils (%) (Auto) (test code = 706-2) 0.6 0.0-1.0 [facility] CenterIM GRANULOCYTES %2019-01-21 06:21:00* Test Item Value Reference Range Interpretation Comments IM GRANULOCYTES % (test code = IM GRANULOCYTES %) 0.6 0.0- 1.0 [facility] CenterNeutrophils # (Auto)2019-01-21 06:21:00* Test Item Value Reference Range Interpretation Comments Neutrophils # (Auto) (test code = 751-8) 3.0 2.1-6.9 [facility] CenterLymphocytes # (Auto)2019-01-21 06:21:00* Test Item Value Reference Range Interpretation Comments Lymphocytes # (Auto) (test code = 50559-3) 1.2 1.0-3.2 [facility] CenterMonocytes # (Auto)2019-01-21 06:21:00* Test Item Value Reference Range Interpretation Comments Monocytes # (Auto) (test code = 742-7) 0.3 0.2-0.8 [facility] CenterEosinophils # (Auto)2019-01-21 06:21:00* Test Item Value Reference Range Interpretation Comments Eosinophils # (Auto) (test code = 711-2) 0.2 0.0-0.4 [facility] CenterBasophils # (Auto)2019-01-21 06:21:00* Test Item Value Reference Range Interpretation Comments Basophils # (Auto) (test code = 704-7) 0.0 0.0-0.1 [facility] CenterAbsolute Immature Granulocyte (auto 2019-01-21 06:21:00* Test Item Value Reference Range Interpretation Comments Absolute Immature Granulocyte (auto (joseph t code = Absolute Immature Granulocyte (auto) 0.03 0-0.1 [facility] CenterCholesterol Schlv2955-38-59 15:27:00* Test Item Value Reference Range Interpretation Comments Cholesterol Level (test code = 2093-3) 171 0-199 Less than 200 mg/dL Low Gutc363 - 239 mg/dL Borderline Ontg614 m g/dl and greater High Risk [facility] CenterLDL Tncpdkghvcw3976-84-97 15:27:00* Test Item Value Reference Range Interpretation Comments LDL Cholesterol (test code = 2089-1) 103 60-130 [facility] Mogapztbhfx0892-03-11 15:27:00* Test Item Value Reference Range Interpretation Comments HDL Cholesterol (test code = 2085-9) 30 40-60 L [facility] CenterCholesterol/HDL Apmmw5614-96-17 15:27:00 * Test Item Value Reference Range Interpretation Comments Cholesterol/HDL Ratio (test code = 9830-1) 5.7 3.0-3.6 H [facility] CenterCholesterol Xwiyd3852-48-61 15:27:00* Test Item Value Reference Range Interpretation Comments Cholesterol Level (test code = 2093-3) 171 0-199 Less than 200 mg/dL Low Izmn685 - 239 mg/dL Borderline Eqtm686 m g/dl and greater High Risk [facility] CenterLDL Wntqtgnqung5406-07-27 15:27:00* Test Item Value Reference Range Interpretation Comments LDL Cholesterol (test code = 2089-1) 103 60-130 [facility] Bakyzjivjbi3682-88-35 15:27:00* Test Item Value Reference Range Interpretation Comments HDL Cholesterol (test code = 2085-9) 30 40-60 L [facility] CenterCholesterol/HDL Tekdb1857-85-44 15:27:00 * Test Item Value Reference Range Interpretation Comments Cholesterol/HDL Ratio (test code = 9830-1) 5.7 3.0-3.6 H [facility] CenterCholesterol Yabij7260-28-56 15:27:00* Test Item Value Reference Range Interpretation Comments Cholesterol Level (test code = 3-3) 171 0-199 Less than 200 mg/dL Low Twap362 - 239 mg/dL Borderline Emgg571 m g/dl and greater High Risk [facility] CenterLDL Xuquptffxcr7007-52-67 15:27:00* Test Item Value Reference Range Interpretation Comments LDL Cholesterol (test code = 9-1) 103 60-130 [facility] Fmqewttwftl2654-01-43 15:27:00* Test Item Value Reference Range Interpretation Comments HDL Cholesterol (test code = 2085-9) 30 40-60 L [facility] CenterCholesterol/HDL Fwusc4787-16-10 15:27:00 * Test Item Value Reference Range Interpretation Comments Cholesterol/HDL Ratio (test code = 9830-1) 5.7 3.0-3.6 H [facility] CenterCholesterol Rqwel2924-04-22 15:27:00* Test Item Value Reference Range Interpretation Comments Cholesterol Level (test code = 3-3) 171 0-199 Less than 200 mg/dL Low Yfsg894 - 239 mg/dL Borderline Effb093 m g/dl and greater High Risk [facility] CenterLDL Wzigakzqouw4447-75-53 15:27:00* Test Item Value Reference Range Interpretation Comments LDL Cholesterol (test code = 9-) 103 60-130 [facility] Miifrriamao9424-99-89 15:27:00* Test Item Value Reference Range Interpretation Comments HDL Cholesterol (test code = 2085-9) 30 40-60 L [facility] CenterCholesterol/HDL Owevc5999-54-62 15:27:00 * Test Item Value Reference Range Interpretation Comments Cholesterol/HDL Ratio (test code = 9830-1) 5.7 3.0-3.6 H [facility] CenterCholesterol Xlghe8006-02-53 15:27:00* Test Item Value Reference Range Interpretation Comments Cholesterol Level (test code = 2093-3) 171 0-199 Less than 200 mg/dL Low Scqw370 - 239 mg/dL Borderline Uyyc472 m g/dl and greater High Risk [facility] CenterLDL Gxpzipgdbvp9495-56-06 15:27:00* Test Item Value Reference Range Interpretation Comments LDL Cholesterol (test code = 2089-1) 103 60-130 [facility] Hiahdlqvdxj6617-75-33 15:27:00* Test Item Value Reference Range Interpretation Comments HDL Cholesterol (test code = 2085-9) 30 40-60 L [facility] CenterCholesterol/HDL Hdotx1171-13-46 15:27:00 * Test Item Value Reference Range Interpretation Comments Cholesterol/HDL Ratio (test code = 9830-1) 5.7 3.0-3.6 H [facility] CenterCholesterol Yhcdm8049-23-05 15:27:00* Test Item Value Reference Range Interpretation Comments Cholesterol Level (test code = 2093-3) 171 0-199 Less than 200 mg/dL Low Afex300 - 239 mg/dL Borderline Mjky909 m g/dl and greater High Risk [facility] CenterLDL Hwbdjasjnfs8295-08-20 15:27:00* Test Item Value Reference Range Interpretation Comments LDL Cholesterol (test code = 2089-1) 103 60-130 [facility] Kxgaovglaaa3017-36-87 15:27:00* Test Item Value Reference Range Interpretation Comments HDL Cholesterol (test code = 2085-9) 30 40-60 L [facility] CenterCholesterol/HDL Issmz9447-56-86 15:27:00 * Test Item Value Reference Range Interpretation Comments Cholesterol/HDL Ratio (test code = 9830-1) 5.7 3.0-3.6 H [facility] CenterTriglycerides Dfeae8935-43-73 13:34:00* Test Item Value Reference Range Interpretation Comments Triglycerides Level (test code = 2571-8) 190 0-149 H [facility] CenterTriglycerides Vulfq3538-69-96 13:34:00* Test Item Value Reference Range Interpretation Comments Triglycerides Level (test code = 2571-8) 190 0-149 H [facility] CenterTriglycerides Ovgmc2773-58-38 13:34:00* Test Item Value Reference Range Interpretation Comments Triglycerides Level (test code = 2571-8) 190 0-149 H [facility] CenterTriglycerides Ickqx9531-54-78 13:34:00* Test Item Value Reference Range Interpretation Comments Triglycerides Level (test code = 2571-8) 190 0-149 H [facility] CenterTriglycerides Uaphq8724-40-32 13:34:00* Test Item Value Reference Range Interpretation Comments Triglycerides Level (test code = 2571-8) 190 0-149 H [facility] CenterTriglycerides Cppax9223-01-40 13:34:00* Test Item Value Reference Range Interpretation Comments Triglycerides Level (test code = 2571-8) 190 0-149 H [facility] Occult Tvdda1825-53-31 09:04:00* Test Item Value Reference Range Interpretation Comments Stool Occult Blood (test code = 2335-8) POSITIVE NEGATIVE [facility] Occult Qzdda9644-21-99 09:04:00* Test Item Value Reference Range Interpretation Comments Stool Occult Blood (test code = 2335-8) POSITIVE NEGATIVE [facility] Occult Pvuoo2819-09-70 09:04:00* Test Item Value Reference Range Interpretation Comments Stool Occult Blood (test code = 2335-8) POSITIVE NEGATIVE [facility] Occult Abavo7003-94-63 09:04:00* Test Item Value Reference Range Interpretation Comments Stool Occult Blood (test code = 2335-8) POSITIVE NEGATIVE [facility] Occult Bdmai7983-74-52 09:04:00* Test Item Value Reference Range Interpretation Comments Stool Occult Blood (test code = 2335-8) POSITIVE NEGATIVE [facility] Occult Nftjh9500-23-32 09:04:00* Test Item Value Reference Range Interpretation Comments Stool Occult Blood (test code = 2335-8) POSITIVE NEGATIVE [facility] 2019-01-18 06:48:00* Test Item Value Reference Range Interpretation Comments Thyroid Stimulating Hormone (TSH) (test code = 86497-2) 0.428 0.350-4.940 [facility] CenterThyroid Stimulating Hormone (TSH) 2019-01-18 06:48:00* Test Item Value Reference Range Interpretation Comments Thyroid Stimulating Hormone (TSH) (test code = 40129-7) 0.428 0.350-4.940 [facility] CenterThyroid Stimulating Hormone (TSH) 2019-01-18 06:48:00* Test Item Value Reference Range Interpretation Comments Thyroid Stimulating Hormone (TSH) (test code = 67770-4) 0.428 0.350-4.940 [facility] CenterThyroid Stimulating Hormone (TSH) 2019-01-18 06:48:00* Test Item Value Reference Range Interpretation Comments Thyroid Stimulating Hormone (TSH) (test code = 42058-4) 0.428 0.350-4.940 [facility] CenterThyroid Stimulating Hormone (TSH) 2019-01-18 06:48:00* Test Item Value Reference Range Interpretation Comments Thyroid Stimulating Hormone (TSH) (test code = 68185-2) 0.428 0.350-4.940 [facility] CenterThyroid Stimulating Hormone (TSH) 2019-01-18 06:48:00* Test Item Value Reference Range Interpretation Comments Thyroid Stimulating Hormone (TSH) (test code = 65425-0) 0.428 0.350-4.940 [facility] Kbvryufjs0895-41-44 15:32:00* Test Item Value Reference Range Interpretation Comments Free Thyroxine (test code = 3024-7) 1.05 0.8-1.8 [facility] Berccsjgo0020-14-60 15:32:00* Test Item Value Reference Range Interpretation Comments Free Thyroxine (test code = 3024-7) 1.05 0.8-1.8 [facility] Uivltzpvj4181-62-26 15:32:00* Test Item Value Reference Range Interpretation Comments Free Thyroxine (test code = 3024-7) 1.05 0.8-1.8 [facility] Mzrnzsyst9873-30-12 15:32:00* Test Item Value Reference Range Interpretation Comments Free Thyroxine (test code = 3024-7) 1.05 0.8-1.8 [facility] Lhflsphnc7021-73-93 15:32:00* Test Item Value Reference Range Interpretation Comments Free Thyroxine (test code = 3024-7) 1.05 0.8-1.8 [facility] Hlijjfewc7229-71-58 15:32:00* Test Item Value Reference Range Interpretation Comments Free Thyroxine (test code = 3024-7) 1.05 0.8-1.8 [facility] CenterCreatine Kivhgu1057-13-76 14:58:00* Test Item Value Reference Range Interpretation Comments Creatine Kinase (test code = 2157-6) 23 29-168 L [facility] CenterCreatine Kinase SA5707-39-90 14:58:00* Test Item Value Reference Range Interpretation Comments Creatine Kinase MB (test code = 74440-9) 0.60 0-5.0 [facility] CenterTroponin B4446-21-36 14:58:00* Test Item Value Reference Range Interpretation Comments Troponin I (test code = RQV0812) < 0.001 0-0.300 [facility] CenterCreatine Abhgwl4285-49-59 14:58:00* Test Item Value Reference Range Interpretation Comments Creatine Kinase (test code = 2157-6) 23 29-168 L [facility] CenterCreatine Kinase AH6974-74-18 14:58:00* Test Item Value Reference Range Interpretation Comments Creatine Kinase MB (test code = 43920-2) 0.60 0-5.0 [facility] CenterTroponin J0673-72-57 14:58:00* Test Item Value Reference Range Interpretation Comments Troponin I (test code = NNA9187) < 0.001 0-0.300 [facility] CenterCreatine Iwuyml0493-42-13 14:58:00* Test Item Value Reference Range Interpretation Comments Creatine Kinase (test code = 2157-6) 23 29-168 L [facility] CenterCreatine Kinase IK0966-21-24 14:58:00* Test Item Value Reference Range Interpretation Comments Creatine Kinase MB (test code = 09851-9) 0.60 0-5.0 [place] 10571019-06-27 14:58:00* Test Item Value Reference Range Interpretation Comments Troponin I (test code = HMV2875) < 0.001 0-0.300 [facility] CenterCreatine Zpohrd7207-27-76 14:58:00* Test Item Value Reference Range Interpretation Comments Creatine Kinase (test code = 2157-6) 23 29-168 L [facility] CenterCreatine Kinase SZ2756-41-12 14:58:00* Test Item Value Reference Range Interpretation Comments Creatine Kinase MB (test code = 57865-3) 0.60 0-5.0 [place] 10571019-06-27 14:58:00* Test Item Value Reference Range Interpretation Comments Troponin I (test code = GSC2771) < 0.001 0-0.300 [facility] CenterCreatine Kqgtre8642-39-94 14:58:00* Test Item Value Reference Range Interpretation Comments Creatine Kinase (test code = 2157-6) 23 29-168 L [facility] CenterCreatine Kinase TV3580-23-62 14:58:00* Test Item Value Reference Range Interpretation Comments Creatine Kinase MB (test code = 71629-0) 0.60 0-5.0 [place] 10571019-06-27 14:58:00* Test Item Value Reference Range Interpretation Comments Troponin I (test code = YBB1164) < 0.001 0-0.300 [facility] CenterCreatine Zqgxfm8462-29-87 14:58:00* Test Item Value Reference Range Interpretation Comments Creatine Kinase (test code = 2157-6) 23 29-168 L [facility] CenterCreatine Kinase HP6629-65-26 14:58:00* Test Item Value Reference Range Interpretation Comments Creatine Kinase MB (test code = 72029-0) 0.60 0-5.0 [facility] CenterTroponin T8142-91-45 14:58:00* Test Item Value Reference Range Interpretation Comments Troponin I (test code = EFM0590) < 0.001 0-0.300 [facility] CenterHemoglobin A1c Mttoiqb0716-61-97 14:27:00 * Test Item Value Reference Range Interpretation Comments Hemoglobin A1c Percent (test code = Hemoglobin A1c Percent) 11.6 4.0-7.0 H [facility] CenterHemoglobin A1c Ghpglzw8853-29-46 14:27:00 * Test Item Value Reference Range Interpretation Comments Hemoglobin A1c Percent (test code = Hemoglobin A1c Percent) 11.6 4.0-7.0 H [facility] CenterHemoglobin A1c Ckyglxf5095-58-88 14:27:00 * Test Item Value Reference Range Interpretation Comments Hemoglobin A1c Percent (test code = Hemoglobin A1c Percent) 11.6 4.0-7.0 H [facility] CenterHemoglobin A1c Ammlxfn7352-54-89 14:27:00 * Test Item Value Reference Range Interpretation Comments Hemoglobin A1c Percent (test code = Hemoglobin A1c Percent) 11.6 4.0-7.0 H [facility] CenterHemoglobin A1c Wmubvmw9235-27-40 14:27:00 * Test Item Value Reference Range Interpretation Comments Hemoglobin A1c Percent (test code = Hemoglobin A1c Percent) 11.6 4.0-7.0 H [facility] CenterHemoglobin A1c Xqwwfad2825-83-94 14:27:00 * Test Item Value Reference Range Interpretation Comments Hemoglobin A1c Percent (test code = Hemoglobin A1c Percent) 11.6 4.0-7.0 H [facility] CenterB[facility] Natriuretic Dpkhzbp5965-28-50 06:11:00* Test Item Value Reference Range Interpretation Comments B-Type Natriuretic Peptide (test code = 84346-2) 14.3 0-100 [facility] Eutqfks8619-79-52 06:11:00* Test Item Value Reference Range Interpretation Comments B-Type Natriuretic Peptide (test code = 74571-8) 14.3 0-100 [facility] Koibhfb3342-83-50 06:11:00* Test Item Value Reference Range Interpretation Comments B-Type Natriuretic Peptide (test code = 52863-1) 14.3 0-100 [facility] Caxadcc8861-20-83 06:11:00* Test Item Value Reference Range Interpretation Comments B-Type Natriuretic Peptide (test code = 76533-4) 14.3 0-100 [facility] Eufqqan2035-41-40 06:11:00* Test Item Value Reference Range Interpretation Comments B-Type Natriuretic Peptide (test code = 58122-7) 14.3 0-100 [facility] Hxvrihh0009-19-03 06:11:00* Test Item Value Reference Range Interpretation Comments B-Type Natriuretic Peptide (test code = 01056-3) 14.3 0-100 [facility] CenterU[facility] RJV4734-19-58 21:13:00* Test Item Value Reference Range Interpretation Comments Urine WBC (test code = 5821-4) NONE 0-5 [facility] NEQ5234-22-15 21:13:00* Test Item Value Reference Range Interpretation Comments Urine RBC (test code = 21436-8) NONE 0-5 [facility] Lifsuaja6670-58-03 21:13:00* Test Item Value Reference Range Interpretation Comments Urine Bacteria (test code = 51857-3) FEW NONE [facility] Epithelial Ehyqt0381-32-53 21:13:00 * Test Item Value Reference Range Interpretation Comments Urine Epithelial Cells (test code = 57827-4) MANY NONE [facility] BYH2719-24-18 21:13:00* Test Item Value Reference Range Interpretation Comments Urine WBC (test code = 5821-4) NONE 0-5 [facility] QJB2999-38-74 21:13:00* Test Item Value Reference Range Interpretation Comments Urine RBC (test code = 82312-6) NONE 0-5 [facility] Zqtuljow9559-52-04 21:13:00* Test Item Value Reference Range Interpretation Comments Urine Bacteria (test code = 91308-0) FEW NONE [facility] Epithelial Czohr4664-72-52 21:13:00 * Test Item Value Reference Range Interpretation Comments Urine Epithelial Cells (test code = 86669-8) MANY NONE [facility] JXQ0832-26-52 21:13:00* Test Item Value Reference Range Interpretation Comments Urine WBC (test code = 5821-4) NONE 0-5 [facility] FXC5229-13-75 21:13:00* Test Item Value Reference Range Interpretation Comments Urine RBC (test code = 99691-4) NONE 0-5 [facility] Oaossjqa7048-30-44 21:13:00* Test Item Value Reference Range Interpretation Comments Urine Bacteria (test code = 89688-3) FEW NONE [facility] Epithelial Scznf5621-16-05 21:13:00 * Test Item Value Reference Range Interpretation Comments Urine Epithelial Cells (test code = 31257-8) MANY NONE [facility] JWQ2060-86-38 21:13:00* Test Item Value Reference Range Interpretation Comments Urine WBC (test code = 5821-4) NONE 0-5 [facility] XQD6471-35-38 21:13:00* Test Item Value Reference Range Interpretation Comments Urine RBC (test code = 47610-1) NONE 0-5 [facility] Tjwcdgpi9627-88-87 21:13:00* Test Item Value Reference Range Interpretation Comments Urine Bacteria (test code = 43522-2) FEW NONE [facility] Epithelial Chmiy3492-39-76 21:13:00 * Test Item Value Reference Range Interpretation Comments Urine Epithelial Cells (test code = 26822-9) MANY NONE [facility] VRK1530-28-21 21:13:00* Test Item Value Reference Range Interpretation Comments Urine WBC (test code = 5821-4) NONE 0-5 [facility] QOA5282-37-18 21:13:00* Test Item Value Reference Range Interpretation Comments Urine RBC (test code = 59763-5) NONE 0-5 [facility] Lmpuidni4177-75-01 21:13:00* Test Item Value Reference Range Interpretation Comments Urine Bacteria (test code = 38827-7) FEW NONE [facility] Epithelial Zwybg8644-28-26 21:13:00 * Test Item Value Reference Range Interpretation Comments Urine Epithelial Cells (test code = 14265-4) MANY NONE [facility] ZQL3209-50-51 21:13:00* Test Item Value Reference Range Interpretation Comments Urine WBC (test code = 5821-4) NONE 0-5 [facility] EMZ1263-30-14 21:13:00* Test Item Value Reference Range Interpretation Comments Urine RBC (test code = 76720-7) NONE 0-5 [facility] Iatuwyei8411-07-21 21:13:00* Test Item Value Reference Range Interpretation Comments Urine Bacteria (test code = 69689-2) FEW NONE [facility] Epithelial Efhzj1223-72-87 21:13:00 * Test Item Value Reference Range Interpretation Comments Urine Epithelial Cells (test code = 68527-0) MANY NONE [facility] Vcopv5207-71-49 21:08:00* Test Item Value Reference Range Interpretation Comments Urine Color (test code = 5778-6) YELLOW YELLOW [facility] Ykktokr7923-45-81 21:08:00* Test Item Value Reference Range Interpretation Comments Urine Clarity (test code = 74312-6) CLEAR CLEAR [facility] Center[facility] Specific Edryyej4598-71-44 21:08:00 * Test Item Value Reference Range Interpretation Comments Urine Specific [place] (test code = 5811-5) <=1.005 1.010-1.02 5 [facility] jE6552-61-54 21:08:00* Test Item Value Reference Range Interpretation Comments Urine pH (test code = 30320-0) 6 5-7 [facility] Leukocyte Fgkrqzoh0747-40-36 21:08:00* Test Item Value Reference Range Interpretation Comments Urine Leukocyte Esterase (test code = 28458-1) NEGATIVE NEGATIV E [facility] Byogfxr7021-22-97 21:08:00* Test Item Value Reference Range Interpretation Comments Urine Nitrite (test code = 55827-1) NEGATIVE NEGATIVE [facility] Lsjrcfs3917-28-65 21:08:00* Test Item Value Reference Range Interpretation Comments Urine Protein (test code = 48979-0) NEGATIVE NEGATIVE [facility] Glucose (UA)2019-01-16 21:08:00* Test Item Value Reference Range Interpretation Comments Urine Glucose (UA) (test code = 75661-5) 3+ NEGATIVE [facility] Tlqydee0464-78-13 21:08:00* Test Item Value Reference Range Interpretation Comments Urine Ketones (test code = 43920-4) NEGATIVE NEGATIVE [facility] Jwmjmrgsodol8150-81-41 21:08:00* Test Item Value Reference Range Interpretation Comments Urine Urobilinogen (test code = 54254-1) 0.2 0.2-1 [facility] Yrdwgbsxs2323-92-96 21:08:00* Test Item Value Reference Range Interpretation Comments Urine Bilirubin (test code = 1977-8) NEGATIVE NEGATIVE [facility] Mmrtb7134-78-13 21:08:00* Test Item Value Reference Range Interpretation Comments Urine Blood (test code = 36310-7) NEGATIVE NEGATIVE [facility] Iggjx0017-14-40 21:08:00* Test Item Value Reference Range Interpretation Comments Urine Color (test code = 5778-6) YELLOW YELLOW [facility] Wciwhdv7798-55-00 21:08:00* Test Item Value Reference Range Interpretation Comments Urine Clarity (test code = 89009-4) CLEAR CLEAR [facility] Specific Gkpljky9877-55-60 21:08:00 * Test Item Value Reference Range Interpretation Comments Urine Specific [place] (test code = 5811-5) <=1.005 1.010-1.02 5 [facility] hN2702-81-35 21:08:00* Test Item Value Reference Range Interpretation Comments Urine pH (test code = 91468-1) 6 5-7 [facility] Leukocyte Sghbqrap1766-46-15 21:08:00* Test Item Value Reference Range Interpretation Comments Urine Leukocyte Esterase (test code = 10870-8) NEGATIVE NEGATIV E [facility] Oqcxrwf0939-40-07 21:08:00* Test Item Value Reference Range Interpretation Comments Urine Nitrite (test code = 01365-2) NEGATIVE NEGATIVE [facility] Khwbbsi3818-05-36 21:08:00* Test Item Value Reference Range Interpretation Comments Urine Protein (test code = 39050-0) NEGATIVE NEGATIVE [facility] Glucose (UA)2019-01-16 21:08:00* Test Item Value Reference Range Interpretation Comments Urine Glucose (UA) (test code = 89394-9) 3+ NEGATIVE [facility] Braygpk5299-35-52 21:08:00* Test Item Value Reference Range Interpretation Comments Urine Ketones (test code = 02090-4) NEGATIVE NEGATIVE [facility] Uqdrtqaggwhe2640-93-14 21:08:00* Test Item Value Reference Range Interpretation Comments Urine Urobilinogen (test code = 95480-8) 0.2 0.2-1 [facility] Loszbrbel2569-87-53 21:08:00* Test Item Value Reference Range Interpretation Comments Urine Bilirubin (test code = 1977-8) NEGATIVE NEGATIVE [facility] Vygee9852-37-52 21:08:00* Test Item Value Reference Range Interpretation Comments Urine Blood (test code = 41379-3) NEGATIVE NEGATIVE [facility] Ixvim4862-67-48 21:08:00* Test Item Value Reference Range Interpretation Comments Urine Color (test code = 5778-6) YELLOW YELLOW [facility] Aijcrap9513-14-59 21:08:00* Test Item Value Reference Range Interpretation Comments Urine Clarity (test code = 09834-4) CLEAR CLEAR [facility] Specific Xxdfwmp9034-66-03 21:08:00 * Test Item Value Reference Range Interpretation Comments Urine Specific [place] (test code = 5811-5) <=1.005 1.010-1.02 5 [facility] iF1365-78-55 21:08:00* Test Item Value Reference Range Interpretation Comments Urine pH (test code = 81214-6) 6 5-7 [facility] Leukocyte Hwwejutq9112-99-62 21:08:00* Test Item Value Reference Range Interpretation Comments Urine Leukocyte Esterase (test code = 19941-1) NEGATIVE NEGATIV E [facility] Ykmhtvw4358-53-15 21:08:00* Test Item Value Reference Range Interpretation Comments Urine Nitrite (test code = 63659-1) NEGATIVE NEGATIVE [facility] Uiwpzzb7757-46-40 21:08:00* Test Item Value Reference Range Interpretation Comments Urine Protein (test code = 49574-3) NEGATIVE NEGATIVE [facility] Glucose (UA)2019-01-16 21:08:00* Test Item Value Reference Range Interpretation Comments Urine Glucose (UA) (test code = 89948-9) 3+ NEGATIVE [facility] Qfxwllh1141-16-78 21:08:00* Test Item Value Reference Range Interpretation Comments Urine Ketones (test code = 31615-6) NEGATIVE NEGATIVE [facility] Nefugzelyeah7569-57-85 21:08:00* Test Item Value Reference Range Interpretation Comments Urine Urobilinogen (test code = 78629-8) 0.2 0.2-1 [facility] Jkuqffpfa2537-41-20 21:08:00* Test Item Value Reference Range Interpretation Comments Urine Bilirubin (test code = 1977-8) NEGATIVE NEGATIVE [facility] Degmx0685-34-07 21:08:00* Test Item Value Reference Range Interpretation Comments Urine Blood (test code = 29367-5) NEGATIVE NEGATIVE [facility] Kwrrx5748-70-54 21:08:00* Test Item Value Reference Range Interpretation Comments Urine Color (test code = 5778-6) YELLOW YELLOW [facility] Hprohwq4783-05-43 21:08:00* Test Item Value Reference Range Interpretation Comments Urine Clarity (test code = 52863-4) CLEAR CLEAR [facility] Specific Reoxysk4911-21-55 21:08:00 * Test Item Value Reference Range Interpretation Comments Urine Specific [place] (test code = 5811-5) <=1.005 1.010-1.02 5 [facility] gY9394-42-70 21:08:00* Test Item Value Reference Range Interpretation Comments Urine pH (test code = 06233-5) 6 5-7 [facility] Leukocyte Duopguwv4477-45-92 21:08:00* Test Item Value Reference Range Interpretation Comments Urine Leukocyte Esterase (test code = 62122-7) NEGATIVE NEGATIV E [facility] Jhlpdkp9135-33-97 21:08:00* Test Item Value Reference Range Interpretation Comments Urine Nitrite (test code = 98167-3) NEGATIVE NEGATIVE [facility] Jsubumg0469-82-08 21:08:00* Test Item Value Reference Range Interpretation Comments Urine Protein (test code = 29925-0) NEGATIVE NEGATIVE [facility] Glucose (UA)2019-01-16 21:08:00* Test Item Value Reference Range Interpretation Comments Urine Glucose (UA) (test code = 55372-4) 3+ NEGATIVE [facility] Vnfhcwf0602-50-11 21:08:00* Test Item Value Reference Range Interpretation Comments Urine Ketones (test code = 44695-1) NEGATIVE NEGATIVE [facility] Aoieowqdoytl1398-60-37 21:08:00* Test Item Value Reference Range Interpretation Comments Urine Urobilinogen (test code = 03416-9) 0.2 0.2-1 [facility] Xjqhibhgw8054-38-12 21:08:00* Test Item Value Reference Range Interpretation Comments Urine Bilirubin (test code = 1977-8) NEGATIVE NEGATIVE [facility] Pdznm2645-20-54 21:08:00* Test Item Value Reference Range Interpretation Comments Urine Blood (test code = 18803-9) NEGATIVE NEGATIVE [facility] Pousd6805-23-95 21:08:00* Test Item Value Reference Range Interpretation Comments Urine Color (test code = 5778-6) YELLOW YELLOW [facility] Dvtywdh4377-21-96 21:08:00* Test Item Value Reference Range Interpretation Comments Urine Clarity (test code = 77252-9) CLEAR CLEAR [facility] Specific Iqjjpxj6548-79-25 21:08:00 * Test Item Value Reference Range Interpretation Comments Urine Specific [place] (test code = 5811-5) <=1.005 1.010-1.02 5 [facility] jG5440-75-44 21:08:00* Test Item Value Reference Range Interpretation Comments Urine pH (test code = 08901-6) 6 5-7 [facility] Leukocyte Bzzhlkxi0379-29-45 21:08:00* Test Item Value Reference Range Interpretation Comments Urine Leukocyte Esterase (test code = 13200-1) NEGATIVE NEGATIV E [facility] Isikjrb4908-49-29 21:08:00* Test Item Value Reference Range Interpretation Comments Urine Nitrite (test code = 69422-2) NEGATIVE NEGATIVE [facility] Kybwnjc9703-57-32 21:08:00* Test Item Value Reference Range Interpretation Comments Urine Protein (test code = 50801-0) NEGATIVE NEGATIVE [facility] Glucose (UA)2019-01-16 21:08:00* Test Item Value Reference Range Interpretation Comments Urine Glucose (UA) (test code = 51730-1) 3+ NEGATIVE [facility] Wyrrlhl1682-92-69 21:08:00* Test Item Value Reference Range Interpretation Comments Urine Ketones (test code = 07188-8) NEGATIVE NEGATIVE [facility] Hayqqpgyayat1168-91-56 21:08:00* Test Item Value Reference Range Interpretation Comments Urine Urobilinogen (test code = 11620-3) 0.2 0.2-1 [facility] Zzbipxwvp1748-09-07 21:08:00* Test Item Value Reference Range Interpretation Comments Urine Bilirubin (test code = 1977-8) NEGATIVE NEGATIVE [facility] Rvdjx9122-05-67 21:08:00* Test Item Value Reference Range Interpretation Comments Urine Blood (test code = 96163-5) NEGATIVE NEGATIVE [facility] Epkjt3701-75-10 21:08:00* Test Item Value Reference Range Interpretation Comments Urine Color (test code = 5778-6) YELLOW YELLOW [facility] Meokuzw6068-41-71 21:08:00* Test Item Value Reference Range Interpretation Comments Urine Clarity (test code = 01721-1) CLEAR CLEAR [facility] Specific Lqwmcny6858-86-47 21:08:00 * Test Item Value Reference Range Interpretation Comments Urine Specific [place] (test code = 5811-5) <=1.005 1.010-1.02 5 [facility] dC9019-46-60 21:08:00* Test Item Value Reference Range Interpretation Comments Urine pH (test code = 64162-5) 6 5-7 [facility] Leukocyte Hmzyjckr7450-48-12 21:08:00* Test Item Value Reference Range Interpretation Comments Urine Leukocyte Esterase (test code = 62652-3) NEGATIVE NEGATIV E [facility] Jyasnyk0118-27-98 21:08:00* Test Item Value Reference Range Interpretation Comments Urine Nitrite (test code = 87177-1) NEGATIVE NEGATIVE [facility] Pqyyzar8280-54-13 21:08:00* Test Item Value Reference Range Interpretation Comments Urine Protein (test code = 87190-0) NEGATIVE NEGATIVE [facility] Glucose (UA)2019-01-16 21:08:00* Test Item Value Reference Range Interpretation Comments Urine Glucose (UA) (test code = 03649-5) 3+ NEGATIVE [facility] Wxmdpma1466-04-49 21:08:00* Test Item Value Reference Range Interpretation Comments Urine Ketones (test code = 18842-1) NEGATIVE NEGATIVE [facility] Ojlkbucqmkgi1282-10-86 21:08:00* Test Item Value Reference Range Interpretation Comments Urine Urobilinogen (test code = 71850-6) 0.2 0.2-1 [facility] Sxxpnrwbc6106-49-34 21:08:00* Test Item Value Reference Range Interpretation Comments Urine Bilirubin (test code = 1977-8) NEGATIVE NEGATIVE [facility] Disnu0392-49-75 21:08:00* Test Item Value Reference Range Interpretation Comments Urine Blood (test code = 90491-0) NEGATIVE NEGATIVE [facility] CenterCHEST SINGLE (PORTABLE)2019-01-16 20:38:00 [facility] [address] [place] [address] Patient Name: KALYANI TALAVERA MR #: [id number] : 1955 Age/Sex: 63/F Req #: [id number] Adm Physician: Ordered by: JACQUES JANE MD Report #: [id number] Location: ER Room/Bed: Procedure: 66 DX/CHEST SINGLE [...] 01/16/192040 COPY TO: JACQUES JANE MD Bedside Rcrmzvz5260-23-04 11:08:00* Test Item Value Reference Range Interpretation Comments Bedside Glucose (test code = 19153-2) 289 70-120 H Meter ID: [id number] Centerodium Level 2019-01-13 05:34:00* Test Item Value Reference Range Interpretation Comments Sodium Level (test code = 2951-2) 138 136-145 [facility] CenterPotassium Wlhtt6920-11-97 05:34:00* Test Item Value Reference Range Interpretation Comments Potassium Level (test code = 2823-3) 3.8 3.5-5.1 [facility] CenterChloride Hleyc7756-87-79 05:34:00* Test Item Value Reference Range Interpretation Comments Chloride Level (test code = 2075-0) 105 98-107 [facility] CenterCarbon Dioxide Bkoxt6864-48-91 05:34:00* Test Item Value Reference Range Interpretation Comments Carbon Dioxide Level (test code = 8-9) 25 22-29 [facility] CenterAnion Wot6220-27-14 05:34:00* Test Item Value Reference Range Interpretation Comments Anion Gap (test code = 93595-6) 11.8 8-16 [facility] CenterBlood Urea Pzzhkhcr4741-17-54 05:34:00* Test Item Value Reference Range Interpretation Comments Blood Urea Nitrogen (test code = 3094-0) 16 7-26 [facility] CenterCreatinine2019-06-23 05:34:00* Test Item Value Reference Range Interpretation Comments Creatinine (test code = 2160-0) 0.78 0.57-1.11 [facility] CenterBUN/Creatinine Mxvov4322-13-44 05:34:00* Test Item Value Reference Range Interpretation Comments BUN/Creatinine Ratio (test code = 3097-3) 21 6-25 [facility] CenterEstimat Glomerular Filtration Rate 2019-01-13 05:34:00* Test Item Value Reference Range Interpretation Comments Estimat Glomerular Filtration Rate (test code = 850887247) > 60 >60 Ranges were taken from the National Kidney Disease Education Program and the [facility] Kidney Foundation literature.Reference ranges:60 or greater: Ytgruf86-61 ( for 3 consecutive months): Chronic kidney disease 15 or less: Kidney failureCovenant Medical CenterGlucose Ddujm1523-22-84 05:34:00* Test Item Value Reference Range Interpretation Comments Glucose Level (test code = JCH2752) 151 74-118 H [facility] CenterCalcium Ktzzk2877-28-67 05:34:00* Test Item Value Reference Range Interpretation Comments Calcium Level (test code = 30849-1) 8.5 8.4-10.2 [facility] CenterTotal Xreovkmiw4419-89-16 05:34:00* Test Item Value Reference Range Interpretation Comments Total Bilirubin (test code = 1975-2) 0.3 0.2-1.2 [facility] CenterAspartate Amino Transf (AST/SGOT) 2019-01-13 05:34:00* Test Item Value Reference Range Interpretation Comments Aspartate Amino Transf (AST/SGOT) (test code = Aspartate Amino Transf (AST/SGOT)) 12 5-34 [facility] CenterAlanine Aminotransferase (ALT/SGPT) 2019-01-13 05:34:00* Test Item Value Reference Range Interpretation Comments Alanine Aminotransferase (ALT/SGPT) (test code = 1742-6) 16 0-55 [facility] CenterTotal Zngthjt5715-72-10 05:34:00* Test Item Value Reference Range Interpretation Comments Total Protein (test code = 2885-2) 5.5 6.5-8.1 L [facility] CenterAlbumin2019-06-23 05:34:00* Test Item Value Reference Range Interpretation Comments Albumin (test code = 1751-7) 3.0 3.5-5.0 L [facility] CenterGlobulin2019-06-23 05:34:00* Test Item Value Reference Range Interpretation Comments Globulin (test code = 16310-9) 2.5 2.3-3.5 [facility] CenterAlbumin/Globulin Lyujj4595-39-32 05:34:00 * Test Item Value Reference Range Interpretation Comments Albumin/Globulin Ratio (test code = 1759-0) 1.2 0.8-2.0 [facility] CenterAlkaline Whtiyblscxi3311-35-49 05:34:00* Test Item Value Reference Range Interpretation Comments Alkaline Phosphatase (test code = 6768-6) 69 40-150 [facility] CenterWhite Blood Lawuk0681-85-53 05:17:00* Test Item Value Reference Range Interpretation Comments White Blood Count (test code = 6690-2) 5.11 4.8-10.8 [facility] CenterRed Blood Yteat2846-38-61 05:17:00* Test Item Value Reference Range Interpretation Comments Red Blood Count (test code = 789-8) 4.52 3.6-5.1 [facility] CenterHemoglobin2019-06-23 05:17:00* Test Item Value Reference Range Interpretation Comments Hemoglobin (test code = 43431-1) 11.2 12.0-16.0 L [facility] CenterHematocrit2019-06-23 05:17:00* Test Item Value Reference Range Interpretation Comments Hematocrit (test code = 4544-3) 36.5 34.2-44.1 [facility] CenterMean Corpuscular Psklhv0736-93-14 05:17:00* Test Item Value Reference Range Interpretation Comments Mean Corpuscular Volume (test code = 787-2) 80.8 81-99 L [facility] CenterMean Corpuscular Cimprhgiqn5392-48-98 05:17:00* Test Item Value Reference Range Interpretation Comments Mean Corpuscular Hemoglobin (test code = 785-6) 24.8 28-32 L [facility] CenterMean Corpuscular Hemoglobin Concent 2019-01-13 05:17:00* Test Item Value Reference Range Interpretation Comments Mean Corpuscular Hemoglobin Concent (test code = 786-4) 30.7 31-35 L [facility] CenterRed Cell Distribution Ahear7941-74-85 05:17:00* Test Item Value Reference Range Interpretation Comments Red Cell Distribution Width (test code = 44524-7) 14.9 11.7 -14.4 H [facility] CenterPlatelet Jqeij8565-92-64 05:17:00* Test Item Value Reference Range Interpretation Comments Platelet Count (test code = 777-3) 149 140-360 [facility] CenterNeutrophils (%) (Auto)2019-01-13 05:17:00 * Test Item Value Reference Range Interpretation Comments Neutrophils (%) (Auto) (test code = 50894-5) 67.6 38.7-80.0 [facility] CenterLymphocytes (%) (Auto)2019-01-13 05:17:00 * Test Item Value Reference Range Interpretation Comments Lymphocytes (%) (Auto) (test code = 736-9) 20.4 18.0-39.1 [facility] CenterMonocytes (%) (Auto)2019-01-13 05:17:00* Test Item Value Reference Range Interpretation Comments Monocytes (%) (Auto) (test code = 5905-5) 5.9 4.4-11.3 [facility] CenterEosinophils (%) (Auto)2019-01-13 05:17:00 * Test Item Value Reference Range Interpretation Comments Eosinophils (%) (Auto) (test code = 713-8) 4.1 0.0-6.0 [facility] CenterBasophils (%) (Auto)2019-01-13 05:17:00* Test Item Value Reference Range Interpretation Comments Basophils (%) (Auto) (test code = 706-2) 1.2 0.0-1.0 H [facility] CenterIM GRANULOCYTES %2019-01-13 05:17:00* Test Item Value Reference Range Interpretation Comments IM GRANULOCYTES % (test code = IM GRANULOCYTES %) 0.8 0.0- 1.0 [facility] CenterNeutrophils # (Auto)2019-01-13 05:17:00* Test Item Value Reference Range Interpretation Comments Neutrophils # (Auto) (test code = 751-8) 3.5 2.1-6.9 [facility] CenterLymphocytes # (Auto)2019-01-13 05:17:00* Test Item Value Reference Range Interpretation Comments Lymphocytes # (Auto) (test code = 23702-5) 1.0 1.0-3.2 [facility] CenterMonocytes # (Auto)2019-01-13 05:17:00* Test Item Value Reference Range Interpretation Comments Monocytes # (Auto) (test code = 742-7) 0.3 0.2-0.8 [facility] CenterEosinophils # (Auto)2019-01-13 05:17:00* Test Item Value Reference Range Interpretation Comments Eosinophils # (Auto) (test code = 711-2) 0.2 0.0-0.4 [facility] CenterBasophils # (Auto)2019-01-13 05:17:00* Test Item Value Reference Range Interpretation Comments Basophils # (Auto) (test code = 704-7) 0.1 0.0-0.1 [facility] CenterAbsolute Immature Granulocyte (auto 2019-01-13 05:17:00* Test Item Value Reference Range Interpretation Comments Absolute Immature Granulocyte (auto (joseph t code = Absolute Immature Granulocyte (auto) 0.04 0-0.1 [facility] CenterHemoglobin A1c Jflonhx2383-59-78 13:04:00 * Test Item Value Reference Range Interpretation Comments Hemoglobin A1c Percent (test code = Hemoglobin A1c Percent) 11.6 4.0-7.0 H [facility] CenterUrine [id number] 18:54:00* Test Item Value Reference Range Interpretation Comments Urine WBC (test code = 5821-4) NONE 0-5 [facility] CenterUrine [id number] 18:54:00* Test Item Value Reference Range Interpretation Comments Urine RBC (test code = 37009-4) NONE 0-5 [facility] CenterUrine Regnuclb4527-89-26 18:54:00* Test Item Value Reference Range Interpretation Comments Urine Bacteria (test code = 62944-7) FEW NONE [facility] CenterUrine Epithelial Vgqcg0428-89-94 18:54:00 * Test Item Value Reference Range Interpretation Comments Urine Epithelial Cells (test code = 07055-2) FEW NONE [facility] CenterCreatine Kinase VO6157-79-81 18:44:00* Test Item Value Reference Range Interpretation Comments Creatine Kinase MB (test code = 61376-9) 1.00 0-5.0 [facility] CenterTroponin Q7064-27-75 18:44:00* Test Item Value Reference Range Interpretation Comments Troponin I (test code = AEX8115) 0.002 0-0.300 [facility] CenterCHEST SINGLE (PORTABLE)2019-01-11 18:42:00 [facility] [address] [address] Patient Name: KALYANI TALAVERA MR #: [id number] : 1955 Age/Sex: 63/F Req #: [id number] Adm Physician: Ordered by: FLO TOLBERT MD Report #: [id number] Location: ER Room/Bed: Procedure: [id number] DX/C HEST SINGLE (PORTABLE) Exam Date: Exam [...] 01/11/191842 COPY TO: FLO TOLBERT MD Creatine Tchzbo2883-26-29 18:39:00* Test Item Value Reference Range Interpretation Comments Creatine Kinase (test code = 2157-6) 29 29-168 [facility] CenterUrine Xemqo7114-44-42 18:38:00* Test Item Value Reference Range Interpretation Comments Urine Color (test code = 5778-6) YELLOW YELLOW [facility] CenterUrine Fsdpksl3581-05-90 18:38:00* Test Item Value Reference Range Interpretation Comments Urine Clarity (test code = 83619-3) CLEAR CLEAR [facility] CenterUrine Specific Ytaczcw7450-92-35 18:38:00 * Test Item Value Reference Range Interpretation Comments Urine Specific [place] (test code = 5811-5) 1.010 1.010-1.02 5 [facility] CenterUrine dQ1305-99-04 18:38:00* Test Item Value Reference Range Interpretation Comments Urine pH (test code = 86014-2) 6 5-7 [facility] CenterUrine Leukocyte Xvrxjhuz6245-94-19 18:38:00* Test Item Value Reference Range Interpretation Comments Urine Leukocyte Esterase (test code = 99140-2) NEGATIVE NEGATIV E [facility] CenterUrine Ctbnqfp1310-71-79 18:38:00* Test Item Value Reference Range Interpretation Comments Urine Nitrite (test code = 79212-3) NEGATIVE NEGATIVE [facility] CenterUrine Lgurbir4991-07-00 18:38:00* Test Item Value Reference Range Interpretation Comments Urine Protein (test code = 02692-5) NEGATIVE NEGATIVE [facility] CenterUrine Glucose (UA)2019-01-11 18:38:00* Test Item Value Reference Range Interpretation Comments Urine Glucose (UA) (test code = 44563-0) 3+ NEGATIVE [facility] CenterUrine Fwogwxr6835-27-25 18:38:00* Test Item Value Reference Range Interpretation Comments Urine Ketones (test code = 72280-3) NEGATIVE NEGATIVE [facility] Jermhypxeuei0496-75-70 18:38:00* Test Item Value Reference Range Interpretation Comments Urine Urobilinogen (test code = 59559-5) 0.2 0.2-1 [facility] CenterUrine Uxrezitek3393-67-22 18:38:00* Test Item Value Reference Range Interpretation Comments Urine Bilirubin (test code = 1977-8) NEGATIVE NEGATIVE [facility] CenterUrine Foefg8698-38-07 18:38:00* Test Item Value Reference Range Interpretation Comments Urine Blood (test code = 29853-1) NEGATIVE NEGATIVE [facility] CenterProthrombin Qzst8591-57-93 18:32:00* Test Item Value Reference Range Interpretation Comments Prothrombin Time (test code = 5902-2) 12.7 11.9-14.5 [facility] CenterProthromb Time International Ratio 2019-01-11 18:32:00* Test Item Value Reference Range Interpretation Comments Prothromb Time International Ratio (test code = 6301-6) 0.91 Oral Anticoagulant Therapy INR Values:1. Low Intensity Therapy 1.5 - 2.02 . Moderate Intensity Therapy 2.0 - 3.03. High Intensity Therapy(1) 2.5 - 3. 54. High Intensity Therapy(2) 3.0 - 4.05. Panic Value INR > 5.0 [facility] CenterActivated Partial Thromboplast Time 2019-01-11 18:32:00* Test Item Value Reference Range Interpretation Comments Activated Partial Thromboplast Time (test code = 54209-3) 24.1 23.8-35.5 [facility] CenterProthrombin Pbpc2058-15-07 18:32:00* Test Item Value Reference Range Interpretation Comments Prothrombin Time (test code = 5902-2) 12.7 11.9-14.5 [facility] CenterProthromb Time International Ratio 2019-01-11 18:32:00* Test Item Value Reference Range Interpretation Comments Prothromb Time International Ratio (test code = 6301-6) 0.91 Oral Anticoagulant Therapy INR Values:1. Low Intensity Therapy 1.5 - 2.02 . Moderate Intensity Therapy 2.0 - 3.03. High Intensity Therapy(1) 2.5 - 3. 54. High Intensity Therapy(2) 3.0 - 4.05. Panic Value INR > 5.0 [facility] CenterActivated Partial Thromboplast Time 2019-01-11 18:32:00* Test Item Value Reference Range Interpretation Comments Activated Partial Thromboplast Time (test code = 81731-8) 24.1 23.8-35.5 [facility] CenterProthrombin Aqzo6576-20-74 18:32:00* Test Item Value Reference Range Interpretation Comments Prothrombin Time (test code = 5902-2) 12.7 11.9-14.5 [facility] CenterProthromb Time International Ratio 2019-01-11 18:32:00* Test Item Value Reference Range Interpretation Comments Prothromb Time International Ratio (test code = 6301-6) 0.91 Oral Anticoagulant Therapy INR Values:1. Low Intensity Therapy 1.5 - 2.02 . Moderate Intensity Therapy 2.0 - 3.03. High Intensity Therapy(1) 2.5 - 3. 54. High Intensity Therapy(2) 3.0 - 4.05. Panic Value INR > 5.0 [facility] CenterActivated Partial Thromboplast Time 2019-01-11 18:32:00* Test Item Value Reference Range Interpretation Comments Activated Partial Thromboplast Time (test code = 79224-2) 24.1 23.8-35.5 [facility] CenterProthrombin Fzdo9983-93-23 18:32:00* Test Item Value Reference Range Interpretation Comments Prothrombin Time (test code = 5902-2) 12.7 11.9-14.5 [facility] CenterProthromb Time International Ratio 2019-01-11 18:32:00* Test Item Value Reference Range Interpretation Comments Prothromb Time International Ratio (test code = 6301-6) 0.91 Oral Anticoagulant Therapy INR Values:1. Low Intensity Therapy 1.5 - 2.02 . Moderate Intensity Therapy 2.0 - 3.03. High Intensity Therapy(1) 2.5 - 3. 54. High Intensity Therapy(2) 3.0 - 4.05. Panic Value INR > 5.0 [facility] CenterActivated Partial Thromboplast Time 2019-01-11 18:32:00* Test Item Value Reference Range Interpretation Comments Activated Partial Thromboplast Time (test code = 67146-6) 24.1 23.8-35.5 [facility] CenterProthrombin Raky2901-66-46 18:32:00* Test Item Value Reference Range Interpretation Comments Prothrombin Time (test code = 5902-2) 12.7 11.9-14.5 [facility] CenterProthromb Time International Ratio 2019-01-11 18:32:00* Test Item Value Reference Range Interpretation Comments Prothromb Time International Ratio (test code = 6301-6) 0.91 Oral Anticoagulant Therapy INR Values:1. Low Intensity Therapy 1.5 - 2.02 . Moderate Intensity Therapy 2.0 - 3.03. High Intensity Therapy(1) 2.5 - 3. 54. High Intensity Therapy(2) 3.0 - 4.05. Panic Value INR > 5.0 [facility] CenterActivated Partial Thromboplast Time 2019-01-11 18:32:00* Test Item Value Reference Range Interpretation Comments Activated Partial Thromboplast Time (test code = 14971-9) 24.1 23.8-35.5 [facility] CenterProthrombin Bxni7402-18-31 18:32:00* Test Item Value Reference Range Interpretation Comments Prothrombin Time (test code = 5902-2) 12.7 11.9-14.5 [facility] CenterProthromb Time International Ratio 2019-01-11 18:32:00* Test Item Value Reference Range Interpretation Comments Prothromb Time International Ratio (test code = 6301-6) 0.91 Oral Anticoagulant Therapy INR Values:1. Low Intensity Therapy 1.5 - 2.02 . Moderate Intensity Therapy 2.0 - 3.03. High Intensity Therapy(1) 2.5 - 3. 54. High Intensity Therapy(2) 3.0 - 4.05. Panic Value INR > 5.0 [facility] CenterActivated Partial Thromboplast Time 2019-01-11 18:32:00* Test Item Value Reference Range Interpretation Comments Activated Partial Thromboplast Time (test code = 76397-2) 24.1 23.8-35.5 [facility] CenterProthrombin Omsf9654-05-70 18:32:00* Test Item Value Reference Range Interpretation Comments Prothrombin Time (test code = 5902-2) 12.7 11.9-14.5 [facility] CenterProthromb Time International Ratio 2019-01-11 18:32:00* Test Item Value Reference Range Interpretation Comments Prothromb Time International Ratio (test code = 6301-6) 0.91 Oral Anticoagulant Therapy INR Values:1. Low Intensity Therapy 1.5 - 2.02 . Moderate Intensity Therapy 2.0 - 3.03. High Intensity Therapy(1) 2.5 - 3. 54. High Intensity Therapy(2) 3.0 - 4.05. Panic Value INR > 5.0 [facility] CenterActivated Partial Thromboplast Time 2019-01-11 18:32:00* Test Item Value Reference Range Interpretation Comments Activated Partial Thromboplast Time (test code = 00827-2) 24.1 23.8-35.5 [facility] CenterCHEST 2 NUXGS6639-92-60 17:48:[address] [address] Patient Name: KALYANI TALAVERA MR #: [id number] : 1955 Age/Sex: 63/F Req #: [id number] Adm Physician: Ordered by: BOYD NICHOLS NP Report #: [id number] Location: ER Room/Bed: Procedure: [id number] D X/CHEST 2 VIEWS Exam Date: 01/10/19 Exam Time: 1723 REPORT STATUS: Signed EXAMINATIO N: CHEST 2 VIEWS INDICATION: Hyperglycemia crackles bases 620 1724 COMPARISON: Chest x-ray 07/01/2018 FINDINGS: [...] T O: BOYD NICHOLS NP B-Type Natriuretic Nthgdeb0291-03-99 17:30:00* Test Item Value Reference Range Interpretation Comments B-Type Natriuretic Peptide (test code = 11910-6) 24.4 0-100 [facility] Oyjyktw5978-96-12 17:30:00* Test Item Value Reference Range Interpretation Comments B-Type Natriuretic Peptide (test code = 32618-5) 24.4 0-100 [facility] CenterUrine [id number] 17:03:00* Test Item Value Reference Range Interpretation Comments Urine WBC (test code = 5821-4) 0-5 0-5 [facility] CenterUrine [id number] 17:03:00* Test Item Value Reference Range Interpretation Comments Urine RBC (test code = 17615-7) NONE 0-5 [facility] CenterUrine Zjfmwofc0983-71-51 17:03:00* Test Item Value Reference Range Interpretation Comments Urine Bacteria (test code = 63126-4) MODERATE NONE H [facility] CenterUrine Epithelial Hfuwd7306-19-38 17:03:00 * Test Item Value Reference Range Interpretation Comments Urine Epithelial Cells (test code = 83958-4) MANY NONE [facility] CenterUrine Tibfg1933-09-26 17:00:00* Test Item Value Reference Range Interpretation Comments Urine Color (test code = 5778-6) YELLOW YELLOW [facility] CenterUrine Zkasliq1528-77-51 17:00:00* Test Item Value Reference Range Interpretation Comments Urine Clarity (test code = 45683-2) CLEAR CLEAR [facility] CenterUrine Specific Hmphrxi1814-64-42 17:00:00 * Test Item Value Reference Range Interpretation Comments Urine Specific [place] (test code = 5811-5) 1.020 1.010-1.02 5 [facility] CenterUrine uB7298-08-57 17:00:00* Test Item Value Reference Range Interpretation Comments Urine pH (test code = 70432-3) 6 5-7 [facility] CenterUrine Leukocyte Rnlnmuzj4106-76-74 17:00:00* Test Item Value Reference Range Interpretation Comments Urine Leukocyte Esterase (test code = 11262-5) NEGATIVE NEGATIV E [facility] CenterUrine Fypdwpz5305-59-26 17:00:00* Test Item Value Reference Range Interpretation Comments Urine Nitrite (test code = 09535-2) NEGATIVE NEGATIVE [facility] CenterUrine Chtrddy5339-45-69 17:00:00* Test Item Value Reference Range Interpretation Comments Urine Protein (test code = 66089-5) NEGATIVE NEGATIVE [facility] CenterUrine Glucose (UA)2019-01-10 17:00:00* Test Item Value Reference Range Interpretation Comments Urine Glucose (UA) (test code = 03953-9) 3+ NEGATIVE [facility] CenterUrine Kzvharr4766-21-89 17:00:00* Test Item Value Reference Range Interpretation Comments Urine Ketones (test code = 29004-1) NEGATIVE NEGATIVE [facility] CenterUrine Bnvvoqvoxwlh3176-84-34 17:00:00* Test Item Value Reference Range Interpretation Comments Urine Urobilinogen (test code = 59728-7) 0.2 0.2-1 [facility] CenterUrine Iauxixfdx8480-35-42 17:00:00* Test Item Value Reference Range Interpretation Comments Urine Bilirubin (test code = 1977-8) NEGATIVE NEGATIVE [facility] CenterUrine Ezpim5011-08-36 17:00:00* Test Item Value Reference Range Interpretation Comments Urine Blood (test code = 33112-0) NEGATIVE NEGATIVE [facility] CenterCreatine Kinase YG8278-30-02 16:38:00* Test Item Value Reference Range Interpretation Comments Creatine Kinase MB (test code = 39458-0) 1.60 0-5.0 [facility] CenterTroponin [id number] 16:38:00* Test Item Value Reference Range Interpretation Comments Troponin I (test code = OTK4077) 0.007 0-0.300 [facility] Bsofr4045-48-35 16:33:00* Test Item Value Reference Range Interpretation Comments Sodium Level (test code = 2951-2) 135 136-145 L [facility] CenterPotassium Akseb5177-18-92 16:33:00* Test Item Value Reference Range Interpretation Comments Potassium Level (test code = 2823-3) 4.9 3.5-5.1 [facility] CenterChloride Cimtu7957-22-57 16:33:00* Test Item Value Reference Range Interpretation Comments Chloride Level (test code = 2075-0) 102 98-107 [facility] CenterCarbon Dioxide Nhqds0671-48-66 16:33:00* Test Item Value Reference Range Interpretation Comments Carbon Dioxide Level (test code = 2028-9) 21 22-29 L [facility] CenterAnion Koo4131-92-01 16:33:00* Test Item Value Reference Range Interpretation Comments Anion Gap (test code = 38194-3) 16.9 8-16 H [facility] CenterBlood Urea Jiogueyj3852-16-24 16:33:00* Test Item Value Reference Range Interpretation Comments Blood Urea Nitrogen (test code = 3094-0) 31 7-26 H [facility] CenterCreatinine2019-06-20 16:33:00* Test Item Value Reference Range Interpretation Comments Creatinine (test code = 2160-0) 1.16 0.57-1.11 H [facility] CenterBUN/Creatinine Nlsdx7185-82-97 16:33:00* Test Item Value Reference Range Interpretation Comments BUN/Creatinine Ratio (test code = 3097-3) 27 6-25 H [facility] CenterEstimat Glomerular Filtration Rate 2019-01-10 16:33:00* Test Item Value Reference Range Interpretation Comments Estimat Glomerular Filtration Rate (test code = 799106444) 47 >60 L Ranges were taken from the National Kidney Disease Education Program and the Jenise counts include [facility] literature.Reference ranges:60 or greater: Bvsbis98-01 ( for 3 consecutive months): Chronic kidney disease 15 or less: Kidney failureCovenant Medical CenterGlucose Oacdg0735-26-19 16:33:00* Test Item Value Reference Range Interpretation Comments Glucose Level (test code = UET1269) 326 74-118 H [facility] CenterCalcium Zwmwv9325-86-75 16:33:00* Test Item Value Reference Range Interpretation Comments Calcium Level (test code = 43993-0) 9.7 8.4-10.2 [facility] CenterTotal Zsjvzcxqj6236-93-31 16:33:00* Test Item Value Reference Range Interpretation Comments Total Bilirubin (test code = 1975-2) 0.3 0.2-1.2 [facility] CenterAspartate Amino Transf (AST/SGOT) 2019-01-10 16:33:00* Test Item Value Reference Range Interpretation Comments Aspartate Amino Transf (AST/SGOT) (test code = Aspartate Amino Transf (AST/SGOT)) 19 5-34 [facility] CenterAlanine Aminotransferase (ALT/SGPT) 2019-01-10 16:33:00* Test Item Value Reference Range Interpretation Comments Alanine Aminotransferase (ALT/SGPT) (test code = 1742-6) 22 0-55 [facility] CenterTotal Pfranfe6556-37-17 16:33:00* Test Item Value Reference Range Interpretation Comments Total Protein (test code = 2885-2) 7.1 6.5-8.1 [facility] CenterAlbumin2019-06-20 16:33:00* Test Item Value Reference Range Interpretation Comments Albumin (test code = 1751-7) 3.5 3.5-5.0 [facility] CenterGlobulin2019-06-20 16:33:00* Test Item Value Reference Range Interpretation Comments Globulin (test code = 14593-0) 3.6 2.3-3.5 H [facility] CenterAlbumin/Globulin Qbutq0442-20-29 16:33:00 * Test Item Value Reference Range Interpretation Comments Albumin/Globulin Ratio (test code = 1759-0) 1.0 0.8-2.0 [facility] CenterAlkaline Imgegwhdehp4740-71-48 16:33:00* Test Item Value Reference Range Interpretation Comments Alkaline Phosphatase (test code = 6768-6) 81 40-150 [facility] CenterCreatine Zngmbn2022-58-39 16:33:00* Test Item Value Reference Range Interpretation Comments Creatine Kinase (test code = 2157-6) 35 29-168 [facility] CenterWhite Blood Noxqi9909-10-24 16:22:00* Test Item Value Reference Range Interpretation Comments White Blood Count (test code = 6690-2) 5.88 4.8-10.8 [facility] CenterRed Blood Tmiqe6599-90-24 16:22:00* Test Item Value Reference Range Interpretation Comments Red Blood Count (test code = 789-8) 5.19 3.6-5.1 H [facility] CenterHemoglobin2019-06-20 16:22:00* Test Item Value Reference Range Interpretation Comments Hemoglobin (test code = 18725-2) 13.0 12.0-16.0 [facility] CenterHematocrit2019-06-20 16:22:00* Test Item Value Reference Range Interpretation Comments Hematocrit (test code = 4544-3) 42.1 34.2-44.1 [facility] CenterMean Corpuscular Xqxpkm1765-62-03 16:22:00* Test Item Value Reference Range Interpretation Comments Mean Corpuscular Volume (test code = 787-2) 81.1 81-99 [facility] CenterMean Corpuscular Qnxlgwippr2527-28-94 16:22:00* Test Item Value Reference Range Interpretation Comments Mean Corpuscular Hemoglobin (test code = 785-6) 25.0 28-32 L [facility] CenterMean Corpuscular Hemoglobin Concent 2019-01-10 16:22:00* Test Item Value Reference Range Interpretation Comments Mean Corpuscular Hemoglobin Concent (test code = 786-4) 30.9 31-35 L [facility] CenterRed Cell Distribution Kikvw0223-99-88 16:22:00* Test Item Value Reference Range Interpretation Comments Red Cell Distribution Width (test code = 24385-5) 15.0 11.7 -14.4 H [facility] CenterPlatelet Opdma4291-73-18 16:22:00* Test Item Value Reference Range Interpretation Comments Platelet Count (test code = 777-3) 151 140-360 [facility] CenterNeutrophils (%) (Auto)2019-01-10 16:22:00 * Test Item Value Reference Range Interpretation Comments Neutrophils (%) (Auto) (test code = 18980-1) 66.5 38.7-80.0 [facility] CenterLymphocytes (%) (Auto)2019-01-10 16:22:00 * Test Item Value Reference Range Interpretation Comments Lymphocytes (%) (Auto) (test code = 736-9) 24.0 18.0-39.1 [facility] CenterMonocytes (%) (Auto)2019-01-10 16:22:00* Test Item Value Reference Range Interpretation Comments Monocytes (%) (Auto) (test code = 5905-5) 5.1 4.4-11.3 [facility] CenterEosinophils (%) (Auto)2019-01-10 16:22:00 * Test Item Value Reference Range Interpretation Comments Eosinophils (%) (Auto) (test code = 713-8) 2.7 0.0-6.0 [facility] CenterBasophils (%) (Auto)2019-01-10 16:22:00* Test Item Value Reference Range Interpretation Comments Basophils (%) (Auto) (test code = 706-2) 1.0 0.0-1.0 [facility] CenterIM GRANULOCYTES %2019-01-10 16:22:00* Test Item Value Reference Range Interpretation Comments IM GRANULOCYTES % (test code = IM GRANULOCYTES %) 0.7 0.0- 1.0 [facility] CenterNeutrophils # (Auto)2019-01-10 16:22:00* Test Item Value Reference Range Interpretation Comments Neutrophils # (Auto) (test code = 751-8) 3.9 2.1-6.9 [facility] CenterLymphocytes # (Auto)2019-01-10 16:22:00* Test Item Value Reference Range Interpretation Comments Lymphocytes # (Auto) (test code = 02684-2) 1.4 1.0-3.2 [facility] CenterMonocytes # (Auto)2019-01-10 16:22:00* Test Item Value Reference Range Interpretation Comments Monocytes # (Auto) (test code = 742-7) 0.3 0.2-0.8 [facility] CenterEosinophils # (Auto)2019-01-10 16:22:00* Test Item Value Reference Range Interpretation Comments Eosinophils # (Auto) (test code = 711-2) 0.2 0.0-0.4 [facility] CenterBasophils # (Auto)2019-01-10 16:22:00* Test Item Value Reference Range Interpretation Comments Basophils # (Auto) (test code = 704-7) 0.1 0.0-0.1 [facility] CenterAbsolute Immature Granulocyte (auto 2019-01-10 16:22:00* Test Item Value Reference Range Interpretation Comments Absolute Immature Granulocyte (auto (joseph t code = Absolute Immature Granulocyte (auto) 0.04 0-0.1 [facility] CenterGLUBED2019-06-15 03:55:00* Test Item Value Reference Range Interpretation Comments GLUBED (test code = GLUBED) 370 mg/dL 74-106 H Performed by certified ripper operator at [facility] WRVYOQ1707-05-27 03:55:00* Test Item Value Reference Range Interpretation Comments GLUBED (test code = GLUBED) 358 mg/dL 74-106 H Performed by certified ripper operator at [facility] BASIC METABOLIC EIBKU1420-17-91 03:09:00* Test Item Value Reference Range Interpretation [...] CA) 8.1 mg/dL 8.5-10.1 L HEPATIC FUNCTION CILDR1898-82-91 03:09:00* Test Item Value Reference Range Interpretation [...] reference range due to change in reagent. UNHGJTNN-B3066-25-15 03:09:00* Test Item Value Reference Range Interpretation Comments TROPONIN-I (test code = TROPI) <0.015 ng/mL 0-0.045 N BASIC METABOLIC DUIOK9374-78-06 03:01:00* Test Item Value Reference Range Interpretation [...] code = CA) mg/dL 8.5-10.1 HEPATIC FUNCTION BGHXN1920-57-81 03:01:00* Test Item Value Reference Range Interpretation [...] TOTAL (test code = ALKP) IUnit/L 45-117 BGUPDXLX-W9160-41-15 03:01:00* Test Item Value Reference Range Interpretation Comments TROPONIN-I (test code = TROPI) ng/mL 0-0.045 CBC W/AUTO ELCZ0431-94-74 02:56:00* Test Item Value Reference Range Interpretation [...] (test code = MDIFF) NO CBC W/AUTO UUEW6075-80-12 02:51:00* Test Item Value Reference Range Interpretation [...] (test code = BA#) K/mm3 0.0-0.2 URINALYSIS DAYTCGSH5748-79-34 01:33:00* Test Item Value Reference Range Interpretation [...] Urine Source? Clean Catch- XR CHEST 1 M0650-58-84 01:00:00 FAX: Amish NurChris [phone] [place]: [address]: REG FAX: Vince Jones DO Name: KALYANI TALAVERA [facility] : 1955 Age/S: 63/F [address] [facility] Unit #: [id number] Loc: [place] [address] Phys: Vince Jones DO Acct: [id number] Dis Date: Status: REG ER PHONE #: [phone] Exam Date: 01/05/2019 0045 FAX #: [phone] Reason: Altered Mental Status EXAMS: CPT CODE: [id number] XR CHEST 1 V 78677 LOCATION: Q15 HISTORY: 63-year-old female who presents with alteration of awareness. COMMENT: A frontal chest radiograph was obtained at 12:44 a.m., and compared to study of Ap ril 2018. Central vascular congestion pattern with surrounding [...] Nur MD; Vince Jones DO Technologist: RT Yisel JONES (R) ate/Time/By: 01/05/2019 (0100) : By: [email or web address] Orig Print D/T: S: 12/22 (0108) PAGE 1 Signed Jose parks - XR CHEST 1 [id number] 01:00:00 FAX: Amish NurChris [phone] [place]: B St: DEP FAX: Vince Jones DO Name: KALYANI TALAVERA [facility] : 1955 Age/S: 63/F [address] [facility] Unit #: [id number] Loc: [place] [address] Phys: Vince Jones DO Acct: [id number] Dis Date: Status: DEP ER PHONE #: [phone] Exam Date: 01/05/2019 0045 FAX #: [phone] Reason: Altered Mental Status EXAMS: CPT CODE: [id number] XR CHEST 1 V 17884 LOCATION: Q15 HISTORY: 63-year-old female who presents with alteration of awareness. COMMENT: A frontal chest radiograph was obtained at 12:44 a.m., and compared to study of [facility] 2018. Central vascular congestion pattern with [...] Technologist: RT ROBERT(Megan) Yisel Simpson ate/Time/By: 01/05/2019 (0100) : By: [email or web address] Orig Print D/T: S: 12/22 (0109) PAGE 1 Signed Jose parks - XR CHEST 1 [id number] 01:00:00 FAX: Amish Nur Si [phone] [place]: B St: DEP FAX: Vince Jones DO Name: KALYANI TALAVERA [facility] : 1955 Age/S: 63/F [address] [facility] Unit #: [id number] Loc: [place] [address] Phys: Vince Jones DO Acct: [id number] Dis Date: Status: DEP ER PHONE #: [phone] Exam Date: 01/05/2019 0045 FAX #: [phone] Reason: Altered Mental Status EXAMS: CPT CODE: [id number] XR CHEST 1 V 79286 LOCATION: Q15 HISTORY: 63-year-old female who presents with alteration of awareness. COMMENT: A frontal chest radiograph was obtained at 12:44 a.m., and compared to study of [facility] 2018. Central vascular congestion pattern with [...] Technologist: RT ROBERT(Megan) Yisel Simpson ate/Time/By: 01/05/2019 (0100) : By: [email or web address] Orig Print D/T: S: 12/22 (0106) PAGE 1 Signed Repor t - CT HEAD/BRAIN W/O [id number] 00:55:00 Name: KALYANI TALAVERA [facility] : 1955 Age/S: 63 / F [address] Unit #: [id number] Loc: [place] [address] Phys: Vince Jones DO Acct: [id number] Dis Date: Status: REG ER PHONE #: Exam Date: 01/05/2019 0050 FAX #: Reason: Altered Mental Status EXAMS: CPT CODE: [id number] CT HEAD/BRAIN W/O CONT 16975 EXAM: - CT HEAD/BRAIN W/O CONT Location [...] 1 Signed Report (CONTINUED) Name: KALYANI TALAVERA [facility] : 1955 Age/S: 63 / F [address] Unit #: [id number] Loc: [place] [address] Phys: Vince Jones DO Acct: [id number] Dis Date: Status: REG ER PHONE #: [phone] Exam Date: 01/05/20190 FAX #: [phone] Reason: Altered Mental Status EXAMS: CPT CODE: [id number] CT HEAD/BRAIN W/O CONT 18655 <Continued> CC: Lucille Nur MD; Vince Jones DO Technologist:Faizan Adame, RT(R)(CT) CTDI: DLP: Trnscb Date/Time: 01/05/2019 (005) t.SDR.CB5 Orig Print D/T: S: 01/05/2019 (0058) PAGE 2 Signed Report - CT HEAD/BRAIN W/O [id number] 00:55:00 Name: KALYANI TALAVERA [facility] : 1955 Age/S: 63 / F [address] [facility] Unit #: [id number] Loc: [place] [address] Phys: Vince Jones DO Acct: [id number] Dis Date: Status: DEP ER PHONE #: [phone] Exam Date: 01/05/2019 005 FAX #: [phone] Reason: Altered Mental Status EXAMS: CPT CODE: [id number] CT HEAD/BRAIN W/O CONT 79670 EXAM: - CT HEAD/BRAIN W/O CONT Location [...] 1 Signed Report (CONTINUED) Name: KALYANI TALAVERA [facility] : 1955 Age/S: 63 / F [address] [facility] Unit #: [id number] Loc: [place] [address] Phys: Vince Jones DO Acct: [id number] Dis Date: Status: DEP ER PHONE #: [phone] Exam Date: 01/05/201949 FAX #: [phone] Reason: Altered Mental Status EXAMS: CPT CODE: [id number] CT HEAD/BRAIN W/O CONT 17225 <Continued> CC: Lucille Nur MD; Vince Jones DO Technologist:Faizan Adame, RT(R)(CT) CTDI: DLP: Trnscb Date/Time: 01/05/2019 (54) [email or web address] Orig Print D/T: S: 01/05/2019 (005) PAGE 2 Signed Report - CT HEAD/BRAIN W/O [id number] 00:55:00 Name: KALYANI TALAVERA [facility] : 1955 Age/S: 63 / F [address] [facility] Unit #: [id number] Loc: [place] [address] Phys: Vince Jones DO Acct: [id number] Dis Date: Status: DEP ER PHONE #: [phone] Exam Date: 01/05/201949 FAX #: [phone] Reason: Altered Mental Status EXAMS: CPT CODE: [id number] CT HEAD/BRAIN W/O CONT 06464 EXAM: - CT HEAD/BRAIN W/O CONT Location [...] 1 Signed Report (CONTINUED) Name: KALYANI TALAVERA [facility] : 1955 Age/S: 63 / F [address] [facility] Unit #: [id number] Loc: [place] [address] Phys: Vince Jones DO Acct: [id number] Dis Date: Status: DEP ER PHONE #: [phone] Exam Date: 01/05/201949 FAX #: [phone] Reason: Altered Mental Status EXAMS: CPT CODE: [id number] CT HEAD/BRAIN W/O CONT 10499 <Continued> CC: Lucille Nur MD; Vince Jones DO Technologist:RT Susan(R)(CT) CTDI: DLP: Trnscb Date/Time: 01/05/2019 (54) [email or web address] Orig Print D/T: S: 01/05/2019 (57) PAGE 2 Signed Report GASTRIC,[id number] 16:33:00 RUN DATE: 11/16/18 [facility] PAGE 1 RUN TIME: 1633 Specimen Inqui ry RUN USER: INTERFACE PATIENT: KALYANI TALAVERA ACCT #: [id number] LOC: [facility] U #: [id number] AGE/SX: 63/F ROOM: RE11/15/18REG DR: Kb Bradford MD : 57 BED: DIS: STATUS: JENNIFER ZUNIGA TLOC: SPEC #: [id number] RECD: 11/15/18 STATUS: SHREYA BROWN #: [id number] MARILEE: 11/15/18-[address] [facility] [address]: Kb Bradford MD ENTERED: 11/15/18 SP TYPE: GASTRIC BX OTHR DR: Lucille Torres MDORDERED: GROSS COPIES TO: Lucille Nur MD [address] [facility] [address] [place] [address] Kb Bradford Si, MD 444 1957 #[id number] PROCEDURES: GROSS ( 11/16/18-1425) TISSUES: 1. ANTRUM - BX 2. BODY BIOPSY OF STOMA CH CLINICAL HISTORY COLLECTION DATE: 11/15/18 DYSPHAGIA FINAL DIAGNOSIS Gastric antrum, biopsy: SUGGESTIVE OF MILD REACTIVE GA STROPATHY CHANGE NO SIGNIFICANT ACUTE OR CHRONIC INFLAMMATION PRESENT NO AREAS OF MUCOSAL EROSION/ULCERATION NEGATIVE FOR INTESTINAL METAPL DONNA NEGATIVE FOR HELICOBACTER ORGANISMS Gastric body, biopsy: GASTRIC MUCOSA WITH NO DISCRETE PATHOLOGIC ULCERATION RRB/sm D [phone] CONTINUED ON NEXT PAGE RUN DATE: 11/16/18 [facility] - Lab PAGE 2 RUN TIME: 1633 Specimen Inquiry RUN USER: INTERFACE SPEC #: [id number] PATIENT: KHANH TALAVERACornell GUARDADO #[id number] (Continued) MACROSC OPIC The first specimen is [...] cm, submitted as (2). GROSS PERFORMED AT [facility] [address] [place] [address] [phone] MICROSCOPIC All of the stains, inc luding any controls performed, stain appropriately. MICROSCOPIC PERFORMED AT [facility] [address] [place] [address] [phone] PERFORMING SITE Diagnosis perf ormed at: [facility] Pathology Cons YANETH aceves [address] [place] [address] Signed SIGNATURE ON FILE Tristan Markham MD 11/16/18 1633 * * END OF REPORT [id number] 06:50:00* Test Item Value Reference Range Interpretation Comments GLUBED (test code = GLUBED) 292 mg/dL 74-106 H Performed by certified ripper operator at [facility] - XR RIBS UNI 2 V [id number] 14:33:00 FAX: Amish Nur Si [phone] [place]: O St: REG Name: KALYANI CATES [facility] : [birth year] Age/S: 63/F [address] [facility] Unit #: [id number] Loc: [place] [address] Phys: Chris Nur MD Acct: [id number] Dis Date: Status: REG CLI PHONE #: [phone] Exam Date: 11/09/2018 1220 FAX #: [phone] Reason: PAIN EXAMS: CPT CODE: [id number] XR RIBS UNI 2 [place] [address] HISTORY: Pain. NINA RISON: Chest x-ray from October 30, 2018. Right rib series. No acute fracture of the right ribs. Study slightly limited due to un derpenetrated technique. IMPRESSION: No right rib fracture. Study is limited due to suboptimal technique. Correlate wi th bone scan for further evaluation as clinically indicated. at 1430 Reported and signed by: Solomon Chowdhury M.D. CC: Lucille Nur MD Technologist: Claire santos RT(R) Trnscrd Date/Time/By: 11/09/2018 (6756) : By: [email or web address] Orig Print D/T: S: 11/09/2018 (9593) PAGE 1 Signed Report [id number] 17:05:00* Test Item Value Reference Range Interpretation Comments GLUBED (test code = GLUBED) 274 mg/dL 74-106 H Performed by certified ripper operator at [facility] [id number] 11:39:00* Test Item Value Reference Range Interpretation Comments GLUBED (test code = GLUBED) 284 mg/dL 74-106 H Performed by certified ripper operator at [facility] [id number] 07:48:00* Test Item Value Reference Range Interpretation Comments GLUBED (test code = GLUBED) 285 mg/dL 74-106 H Performed by certified ripper operator at [facility] [id number] 20:08:00* Test Item Value Reference Range Interpretation Comments GLUBED (test code = GLUBED) 252 mg/dL 74-106 H Performed by certified ripper operator at [facility] [id number] 16:09:00* Test Item Value Reference Range Interpretation Comments GLUBED (test code = GLUBED) 329 mg/dL 74-106 H Performed by certified ripper operator at [facility] BASIC METABOLIC [id number] 12:51:00* Test Item Value Reference Range Interpretation [...] CA) 8.6 mg/dL 8.5-10.1 N BASIC METABOLIC [id number] 12:40:00* Test Item Value Reference Range Interpretation [...] CALCIUM (test code = CA) mg/dL 8.5-10.1 [id number] 10:39:00* Test Item Value Reference Range Interpretation Comments GLUBED (test code = GLUBED) 281 mg/dL 74-106 H Performed by certified ripper operator at [facility] [id number] 07:54:00* Test Item Value Reference Range Interpretation Comments GLUBED (test code = GLUBED) 299 mg/dL 74-106 H Performed by certified ripper operator at [facility] [id number] 21:58:00* Test Item Value Reference Range Interpretation Comments TROPONIN-I (test code = TROPI) <0.015 ng/mL 0-0.045 N SPECIMEN COMMENTS: [id number] 20:26:00* Test Item Value Reference Range Interpretation Comments GLUBED (test code = GLUBED) 340 mg/dL 74-106 H Performed by certified ripper operator at [facility] [id number] 17:09:00* Test Item Value Reference Range Interpretation Comments GLUBED (test code = GLUBED) 370 mg/dL 74-106 H Performed by certified ripper operator at [facility] [id number] 10:49:00* Test Item Value Reference Range Interpretation Comments GLUBED (test code = GLUBED) 351 mg/dL 74-106 H Performed by certified ripper operator at [facility] [id number] 09:54:00* Test Item Value Reference Range Interpretation Comments GLUBED (test code = GLUBED) 304 mg/dL 74-106 H Performed by certified ripper operator at [facility] [id number] 09:20:00* Test Item Value Reference Range Interpretation Comments TROPONIN-I (test code = TROPI) <0.015 ng/mL 0-0.045 N COMMENTS TO HOUSEHOLD APPLIANCE MECHANIC: COLLECT 3 HOURS AFTER PREVIOUS [id number] 03:55:00* Test Item Value Reference Range Interpretation Comments TROPONIN-I (test code = TROPI) <0.015 ng/mL 0-0.045 N COMMENTS TO HOUSEHOLD APPLIANCE MECHANIC: COLLECT 3 HOURS AFTER PREVIOUS SAMPLECBC W/AUTO [id number] 01:32:00* Test Item Value Reference Range Interpretation [...] = MDIFF) NO, ONLY SCAN NEEDED DIFFERENTIAL [id number] 01:32:00* Test Item Value Reference Range Interpretation Comments STAIN ACCEPTABILITY (test code = STN ACCEPTABLE) STAIN ACCEPTABLE POLYCHROMASIA (test code = POLC) 1+ HYPOCHROMIA (test code = HYPO) 1+ ANISOCYTOSIS (test code = ANISO) 1+ MICROCYTOSIS (test code = MICR) 1+ PLATELET ESTIMATE (test code = PLTEST) ADEQUATE PLATELET MORPHOLOGY (test code = PLTMORPH) NORMAL URINALYSIS [id number] 01:10:00* Test Item Value Reference Range Interpretation [...] SEEN #/HPF NONE Urine Source? Clean CatchURINALYSIS [id number] 01:06:00* Test Item Value Reference Range Interpretation [...] per HPF NONE Urine Source? Clean CatchURINALYSIS [id number] 01:03:00* Test Item Value Reference Range Interpretation [...] BACU) per HPF NONE Urine Source? Clean [id number] 00:46:00* Test Item Value Reference Range Interpretation Comments GLUBED (test code = GLUBED) 415 mg/dL 74-106 H Performed by certified ripper operator at [facility] VENOUS BLOOD [id number] 23:47:00* Test Item Value Reference Range Interpretation [...] METHGB) 0.4 % 0.0-1.50 N COMPREHENSIVE METABOLIC [id number] 23:25:00* Test Item Value Reference Range Interpretation [...] 537 mg/dL 74-106 Re sults called to [id number] by ELVIA1 10/30/18 2325Critical results verified and [...] reference range due to change in reagent. [id number] 23:25:00* Test Item Value Reference Range Interpretation Comments LIPASE (test code = LIP) 113 U/L 73.0-393.0 N [id number] 23:25:00* Test Item Value Reference Range Interpretation Comments CKMB (test code = CKMBT) < 1.0 ng/mL 0-6.0 N [id number] 23:25:00* Test Item Value Reference Range Interpretation Comments TROPONIN-I (test code = TROPI) <0.015 ng/mL 0-0.045 N CBC W/AUTO [id number] 23:21:00* Test Item Value Reference Range Interpretation [...] = MDIFF) NO, ONLY SCAN NEEDED DIFFERENTIAL [id number] 23:21:00* Test Item Value Reference Range Interpretation Comments STAIN ACCEPTABILITY (test code = STN ACCEPTABLE) CABOT RINGS (test code = CAB) MORPHOLOGY COMMENT (test code = MOC) PLATELET ESTIMATE (test code = PLTEST) PLATELET MORPHOLOGY (test code = PLTMORPH) CBC W/AUTO [id number] 23:21:00* Test Item Value Reference Range Interpretation [...] = MDIFF) NO, ONLY SCAN NEEDED DIFFERENTIAL [id number] 23:21:00* Test Item Value Reference Range Interpretation Comments STAIN ACCEPTABILITY (test code = STN ACCEPTABLE) CABOT RINGS (test code = CAB) MORPHOLOGY COMMENT (test code = MOC) PLATELET ESTIMATE (test code = PLTEST) PLATELET MORPHOLOGY (test code = PLTMORPH) CBC W/AUTO [id number] 23:21:00* Test Item Value Reference Range Interpretation [...] = MDIFF) NO, ONLY SCAN NEEDED DIFFERENTIAL [id number] 23:21:00* Test Item Value Reference Range Interpretation Comments STAIN ACCEPTABILITY (test code = STN ACCEPTABLE) MORPHOLOGY COMMENT (test code = MOC) PLATELET ESTIMATE (test code = PLTEST) PLATELET MORPHOLOGY (test code = PLTMORPH) CBC W/AUTO [id number] 23:20:00* Test Item Value Reference Range Interpretation [...] = MDIFF) NO, ONLY SCAN NEEDED DIFFERENTIAL [id number] 23:20:00* Test Item Value Reference Range Interpretation Comments STAIN ACCEPTABILITY (test code = STN ACCEPTABLE) CABOT RINGS (test code = CAB) MORPHOLOGY COMMENT (test code = MOC) PLATELET ESTIMATE (test code = PLTEST) PLATELET MORPHOLOGY (test code = PLTMORPH) CBC W/AUTO [id number] 23:08:00* Test Item Value Reference Range Interpretation [...] code = BA#) K/mm3 0.0-0.2 COMPREHENSIVE METABOLIC [id number] 23:06:00* Test Item Value Reference Range Interpretation [...] TOTAL (test code = ALKP) IUnit/L 45-117 [id number] 23:06:00* Test Item Value Reference Range Interpretation Comments LIPASE (test code = LIP) U/L 73.0-393.0 [id number] 23:06:00* Test Item Value Reference Range Interpretation Comments CKMB (test code = CKMBT) ng/mL 0-6.0 [id number] 23:06:00* Test Item Value Reference Range Interpretation Comments TROPONIN-I (test code = TROPI) ng/mL 0-0.045 - XR CHEST 2 [id number] 23:03:00 FAX: Amish Nur Si [phone] [place]: St: REG FAX: Leonora Norton [phone] Name: KALYANI TALAVERA [facility] : 1955 Age/S: 63/F [address] [facility] Unit #: [id number] Loc: [place] [address] Phys: Leonora Goins MD Acct: [id number] Dis Date: Status: REG ER PHONE #: [phone] Exam Date: 10/30/2018 2241 FAX #: [phone] Reason: cp EXAMS: CPT CODE: [id number] XR CHEST 2 V 57808 REASON FOR EXAM: cp Exam Order Date: [...] MD Technologist: Janeen Dunbar Trnscrd Date/Time/By: 10/30/2018 (4215) : By: KendyL Orig Print D/T: S: 10/30/2018 (7136) PAGE 1 Signed Report GLUBED 2018-10-12 11:21:00* Test Item Value Reference Range Interpretation Comments GLUBED (test code = GLUBED) 189 mg/dL 74-106 H Performed by certified ripper operator at [facility] [id number] 10:37:00* Test Item Value Reference Range Interpretation Comments GLUBED (test code = GLUBED) 190 mg/dL 74-106 H Performed by certified ripper operator at [facility] [id number] 21:08:00* Test Item Value Reference Range Interpretation Comments GLUBED (test code = GLUBED) 156 mg/dL 74-106 H Performed by certified ripper operator at [facility] [id number] 16:01:00* Test Item Value Reference Range Interpretation Comments GLUBED (test code = GLUBED) 122 mg/dL 74-106 H Performed by certified ripper operator at [facility] [id number] 12:56:00* Test Item Value Reference Range Interpretation Comments GLUBED (test code = GLUBED) 173 mg/dL 74-106 H Performed by certified ripper operator at [facility] [id number] 07:28:00* Test Item Value Reference Range Interpretation Comments GLUBED (test code = GLUBED) 221 mg/dL 74-106 H Performed by certified ripper operator at [facility] [id number] 20:54:00* Test Item Value Reference Range Interpretation Comments GLUBED (test code = GLUBED) 261 mg/dL 74-106 H Performed by certified ripper operator at [facility] [id number] 15:03:00* Test Item Value Reference Range Interpretation Comments GLUBED (test code = GLUBED) 167 mg/dL 74-106 H Performed by certified ripper operator at [facility] [id number] 11:23:00* Test Item Value Reference Range Interpretation Comments GLUBED (test code = GLUBED) 206 mg/dL 74-106 H Performed by certified ripper operator at [facility] BASIC METABOLIC [id number] 07:57:00* Test Item Value Reference Range Interpretation [...] code = CA) 8.5 mg/dL 8.5-10.1 N [id number] 07:29:00* Test Item Value Reference Range Interpretation Comments GLUBED (test code = GLUBED) 239 mg/dL 74-106 H Performed by certified ripper operator at [facility] [id number] 05:00:00* Test Item Value Reference Range Interpretation Comments GLUBED (test code = GLUBED) 234 mg/dL 74-106 H Performed by certified ripper operator at [facility] [id number] 20:10:00* Test Item Value Reference Range Interpretation Comments GLUBED (test code = GLUBED) 204 mg/dL 74-106 H Performed by certified ripper operator at [facility] [id number] 17:08:00* Test Item Value Reference Range Interpretation Comments GLUBED (test code = GLUBED) 243 mg/dL 74-106 H Performed by certified ripper operator at [facility] T4 [id number] 14:42:00* Test Item Value Reference Range Interpretation Comments T4 FREE (test code = T4F) 7.60 ng/dL 0.76-1.46 H THYROID STIMULATING [id number] 14:42:00* Test Item Value Reference Range Interpretation Comments THYROID STIMULATING HORMONE (test code = TSH) 0.812 uIU/mL 0.36-3.7 4 N TSH REFERENCE RANGES: EUTHYROID: 0.35 - 4.3 mIU/mL HYPO : > 5.5 mIU/mL HYPER : < 0.35 mIU/mL T4 [id number] 14:03:00* Test Item Value Reference Range Interpretation Comments T4 FREE (test code = T4F) ng/dL 0.76-1.46 THYROID STIMULATING [id number] 14:03:00* Test Item Value Reference Range Interpretation Comments THYROID STIMULATING HORMONE (test code = TSH) 0.812 uIU/mL 0.36-3.7 4 N TSH REFERENCE RANGES: EUTHYROID: 0.35 - 4.3 mIU/mL HYPO : > 5.5 mIU/mL HYPER : < 0.35 mIU/mL [id number] 12:01:00* Test Item Value Reference Range Interpretation Comments GLUBED (test code = GLUBED) 232 mg/dL 74-106 H Performed by certified ripper operator at [facility] [id number] 07:31:00* Test Item Value Reference Range Interpretation Comments GLUBED (test code = GLUBED) 253 mg/dL 74-106 H Performed by certified ripper operator at [facility] BASIC METABOLIC [id number] 05:59:00* Test Item Value Reference Range Interpretation [...] CA) 8.4 mg/dL 8.5-10.1 L BASIC METABOLIC [id number] 05:56:00* Test Item Value Reference Range Interpretation [...] CALCIUM (test code = CA) mg/dL 8.5-10.1 [id number] 03:37:00* Test Item Value Reference Range Interpretation Comments GLUBED (test code = GLUBED) 302 mg/dL 74-106 H Performed by certified ripper operator at [facility] T4 [id number] 20:00:00* Test Item Value Reference Range Interpretation Comments T4 FREE (test code = T4F) 0.97 ng/dL 0.76-1.46 N THYROID STIMULATING [id number] 20:00:00* Test Item Value Reference Range Interpretation Comments THYROID STIMULATING HORMONE (test code = TSH) 0.336 uIU/mL 0.36-3.7 4 L TSH REFERENCE RANGES: EUTHYROID: 0.35 - 4.3 mIU/mL HYPO : > 5.5 mIU/mL HYPER : < 0.35 mIU/mL [id number] 19:59:00* Test Item Value Reference Range Interpretation Comments GLYCOSYLATED HEMOGLOBIN (HA1C) (test code = GLYHGB) 9.7 % HbA1 4. 8-6.0 H ESTIMATED AVERAGE GLUCOSE (test code = EAG) 232 MG/DL [id number] 19:43:00* Test Item Value Reference Range Interpretation Comments GLUBED (test code = GLUBED) 301 mg/dL 74-106 H Performed by certified ripper operator at [facility] [id number] 17:38:00* Test Item Value Reference Range Interpretation Comments GLUBED (test code = GLUBED) 242 mg/dL 74-106 H Performed by certified ripper operator at [facility] [id number] 13:43:00* Test Item Value Reference Range Interpretation Comments TROPONIN-I (test code = TROPI) <0.015 ng/mL 0-0.045 N COMMENTS TO HOUSEHOLD APPLIANCE MECHANIC: COLLECT 3 HOURS AFTER PREVIOUS [id number] 13:19:00* Test Item Value Reference Range Interpretation Comments GLUBED (test code = GLUBED) 243 mg/dL 74-106 H Performed by certified ripper operator at [facility] [id number] 10:44:00* Test Item Value Reference Range Interpretation Comments TROPONIN-I (test code = TROPI) <0.015 ng/mL 0-0.045 N COMMENTS TO HOUSEHOLD APPLIANCE MECHANIC: COLLECT 3 HOURS AFTER PREVIOUS [id number] 08:17:00* Test Item Value Reference Range Interpretation Comments GLUBED (test code = GLUBED) 164 mg/dL 74-106 H Performed by certified ripper operator at [facility] BASIC METABOLIC [id number] 08:09:00* Test Item Value Reference Range Interpretation [...] mg/dL 74-106 LL Re sults called to [id number] by V.LAB.TOMÁSB 10/08/18 0807Critical results verified and read back [...] CA) 8.5 mg/dL 8.5-10.1 N HEPATIC FUNCTION [id number] 08:09:00* Test Item Value Reference Range Interpretation [...] reference range due to change in reagent. [id number] 08:09:00* Test Item Value Reference Range Interpretation Comments LIPASE (test code = LIP) 70 U/L 73.0-393.0 L [id number] 08:09:00* Test Item Value Reference Range Interpretation [...] into account the patients history. B-TYPE NATRIURETIC [id number] 06:52:00* Test Item Value Reference Range Interpretation Comments B-TYPE NATRIURETIC PEPTIDE (test code = BNP) 10.07 pgram/mL 0-100 N [id number] 06:43:00* Test Item Value Reference Range Interpretation Comments GLUBED (test code = GLUBED) 36 mg/dL 74-106 LL Performed by certified ripper operator at [facility] URINALYSIS [id number] 06:19:00* Test Item Value Reference Range Interpretation [...] FEW #/LPF FEW Urine Source? Clean CatchLACTIC [id number] 06:15:00* Test Item Value Reference Range Interpretation Comments LACTIC ACID (test code = LACT) 0.9 mmol/L 0.4-1.9 N - XR CHEST 1 [id number] 05:44:00 FAX: Amish Nur, [place]: St: REG Name: KALYANI CATES [facility] : [birth year] Age/S: 63/F [address] [facility] Unit #: [id number] Loc: [place] [address] Phys: Elena Cedeño MD Acct: [id number] Dis Date: Status: REG ER PHONE #: [phone] Exam Date: 10/08/2018 05 FAX #: [phone] Reason: CHEST PAIN EXAMS: CPT CODE: [id number] XR CHEST 1 V 78758 HISTORY: Chest pain. Location: C3 COMPARISON:09/18/2017 FINDINGS: There is mild cardiomegaly. There is elevation of the right hemid iaphragm. No pneumothorax. No focal consolidation. No other changes. IMPRESSION: 1. Elevated right hemidiaphragm. Mi ld cardiomegaly. No other acute abnormality. at 0507 Report ed and signed by: Kizzy Dietrich MD CC: Lucille Nur MD Technologist: Marcelino Reid RT(R) Trnward Date/Time/By: 10/08/2018 (0544) : By: [email or web address] XC2 Orig Print D/T: S: 10/08/2018 (4122) PAGE 1 Signed Report PROTHROMBIN [id number] 05:38:00* Test Item Value Reference Range Interpretation [...] (2.5-3.5) IS PATIENT ON ANTICOAGULANTS? NTHROMBOPLASTIN TIME [id number] 05:38:00* Test Item Value Reference Range Interpretation Comments THROMBOPLASTIN TIME PARTIAL (test code = PTT) 32.9 seconds 25.0-36. 5 N IS PATIENT ON ANTICOAGULANTS? [id number]-[id number] 05:38:00* Test Item Value Reference Range Interpretation [...] -Liver cirrhosis - IS PATIENT ON ANTICOAGULANTS? [facility] W/O [id number] 05:27:00* Test Item Value Reference Range Interpretation [...] MPV) 10.6 fL 6.7-11.0 N ARTERIAL BLOOD [id number] 05:25:00* Test Item Value Reference Range Interpretation [...] 16.4 % vol 18.0-22.0 L CBC W/O [id number] 05:20:00* Test Item Value Reference Range Interpretation [...] VOLUME (test code = MPV) fL 6.7-11.0 DHDPPF0754-36-30 05:06:00* Test Item Value Reference Range Interpretation Comments GLUBED (test code = GLUBED) 73 mg/dL 74-106 L Performed by certified ripper operator at [facility] FOREARM RIGHT 2 WTEY4042-57-25 20:47:00 [place] [address] Patient Name: KALYANI TALAVERA MR #: [id number] : 1955 Age/Sex: 63/F Req #: [id number] Adm Physician: Ordered by: FLO TOLBERT MD Report #: [id number] Location: ER Room/Bed: Procedure: [id number] DX /FOREARM RIGHT 2 VIEW Exam Date: [...] 049 COPY TO: FLO TOLBERT MD Bedside Upcgrzl5737-90-35 14:02:00 * Test Item Value Reference Range Interpretation Comments Bedside Glucose (test code = 63133-5) 68 70-120 L Meter ID: [id number] [facility] Glucose 2018-07-11 14:02:00* Test Item Value Reference Range Interpretation Comments Bedside Glucose (test code = 30423-3) 68 70-120 L Meter ID: [id number] [facility] Glucose 2018-07-11 14:02:00* Test Item Value Reference Range Interpretation Comments Bedside Glucose (test code = 51856-7) 68 70-120 L Meter ID: [id number] Medical CenterB-Type Natriuretic Ycyknhs5937-65-93 12:44:00* Test Item Value Reference Range Interpretation Comments B-Type Natriuretic Peptide (test code = 17087-4) 43.1 0-100 [facility] CenterB-[facility] Natriuretic Avlcbvi5613-04-50 12:44:00* Test Item Value Reference Range Interpretation Comments B-Type Natriuretic Peptide (test code = 68554-8) 43.1 0-100 [facility]PARANAS [id number] 12:32:00 [facility] [address] [address] Patient Name: KALYANI TALAVERA MR #: [id number] : 1955 Age/Sex: 63/F Req #: [id number] Adm Physician: Ordered by: ELIESER DAWSON MD Report #: [id number] Location: ER Room/Bed: Procedure: [id number] CT/CT MAXIO FAC/PARANAS WO Exam Date: 07/11/18 [...] COPY TO: ELIESER DAWSON MD CT BRAIN [id number] 12:26:00 [place] [address] Patient Name: KALYANI TALAVERA MR #: [id number] : 1955 Age/Sex: 63/F Req #: [id number] Adm Physician: Ordered by: ELIESER DAWSON MD Report #: [id number] Location: ER Room/Bed: Procedure: [id number] CT/CT BRAIN WO Exam Date: 07/11/18 Exam [...] COPY TO: ELIESER DAWSON MD Lactic Acid Gurkl6660-65-73 12:24:00* Test Item Value Reference Range Interpretation Comments Lactic Acid Level (test code = Lactic Acid Level) 7.1 4.5- 19.8 [facility] Gjiyz5965-39-43 12:24:00* Test Item Value Reference Range Interpretation Comments Lactic Acid Level (test code = Lactic Acid Level) 7.1 4.5- 19.8 [facility] CenterLactic Acid Tcgcz9190-52-73 12:24:00* Test Item Value Reference Range Interpretation Comments Lactic Acid Level (test code = Lactic Acid Level) 7.1 4.5- 19.8 [facility] CenterLactic Acid Xozge9240-88-71 12:24:00* Test Item Value Reference Range Interpretation Comments Lactic Acid Level (test code = Lactic Acid Level) 7.1 4.5- 19.8 [facility] Rwjdy2947-04-48 12:24:00* Test Item Value Reference Range Interpretation Comments Lactic Acid Level (test code = Lactic Acid Level) 7.1 4.5- 19.8 [facility] CenterLactic Acid Qloaq0767-91-30 12:24:00* Test Item Value Reference Range Interpretation Comments Lactic Acid Level (test code = Lactic Acid Level) 7.1 4.5- 19.8 [facility] Xbxuq1748-96-40 12:24:00* Test Item Value Reference Range Interpretation Comments Lactic Acid Level (test code = Lactic Acid Level) 7.1 4.5- 19.8 [facility] Sreuh0983-27-12 12:24:00* Test Item Value Reference Range Interpretation Comments Lactic Acid Level (test code = Lactic Acid Level) 7.1 4.5- 19.8 [facility] CenterLactic Acid Hskab0144-76-60 12:24:00* Test Item Value Reference Range Interpretation Comments Lactic Acid Level (test code = Lactic Acid Level) 7.1 4.5- 19.8 [facility] CenterLactic Acid Btcmj9003-22-66 12:24:00* Test Item Value Reference Range Interpretation Comments Lactic Acid Level (test code = Lactic Acid Level) 7.1 4.5- 19.8 [facility] CenterCreatine Kinase KE3506-91-70 12:17:00* Test Item Value Reference Range Interpretation Comments Creatine Kinase MB (test code = 24787-0) 2.60 0-5.0 [facility] CenterTrunion medical centern Z8584-77-44 12:17:00* Test Item Value Reference Range Interpretation Comments Troponin I (test code = AML4292) < 0.001 0-0.300 [facility] CenterCreatine Kinase VJ3056-43-26 12:17:00* Test Item Value Reference Range Interpretation Comments Creatine Kinase MB (test code = 28695-2) 2.60 0-5.0 [place] 10571018-12-19 12:17:00* Test Item Value Reference Range Interpretation Comments Troponin I (test code = QLC7076) < 0.001 0-0.300 [facility] CenterActivated Partial Thromboplast Time 2018-07-11 12:09:00* Test Item Value Reference Range Interpretation Comments Activated Partial Thromboplast Time (test code = 45564-2) 20.8 23.8-35.5 L [facility] Centerodium Sagky3043-59-37 12:09:00* Test Item Value Reference Range Interpretation Comments Sodium Level (test code = 2951-2) 141 136-145 [facility] CenterPotassium Onnal9747-01-15 12:09:00* Test Item Value Reference Range Interpretation Comments Potassium Level (test code = 2823-3) 4.5 3.5-5.1 [facility] CenterChloride Jtqyf2724-49-96 12:09:00* Test Item Value Reference Range Interpretation Comments Chloride Level (test code = 2075-0) 110 98-107 H [facility] CenterCarbon Dioxide Tysdj6456-98-05 12:09:00* Test Item Value Reference Range Interpretation Comments Carbon Dioxide Level (test code = 2028-9) 22 22-29 [facility] CenterAnion Rdm4145-99-17 12:09:00* Test Item Value Reference Range Interpretation Comments Anion Gap (test code = 03633-7) 13.5 8-16 [facility] CenterBlood Urea Nploaqqw6255-64-14 12:09:00* Test Item Value Reference Range Interpretation Comments Blood Urea Nitrogen (test code = 3094-0) 28 7-26 H [facility] CenterCreatinine2018-12-19 12:09:00* Test Item Value Reference Range Interpretation Comments Creatinine (test code = 2160-0) 0.92 0.57-1.11 [facility] CenterBUN/Creatinine Mklay7630-12-75 12:09:00* Test Item Value Reference Range Interpretation Comments BUN/Creatinine Ratio (test code = 3097-3) 30 6-25 H [facility] CenterEstimat Glomerular Filtration Rate 2018-07-11 12:09:00* Test Item Value Reference Range Interpretation Comments Estimat Glomerular Filtration Rate (test code = 649378957) > 60 >60 Ranges were taken from the National Kidney Disease Education Program and the Jenise counts [facility] literature.Reference ranges:60 or greater: Ugyvwg53-51 ( for 3 consecutive months): Chronic kidney disease 15 or less: Kidney failureCovenant Medical CenterGlucose Gnobe2288-00-88 12:09:00* Test Item Value Reference Range Interpretation Comments Glucose Level (test code = HNO4796) 62 74-118 L [facility] CenterCalcium Oavgj2523-22-96 12:09:00* Test Item Value Reference Range Interpretation Comments Calcium Level (test code = 94237-1) 9.2 8.4-10.2 [facility] CenterTotal Zqpgdhjng0797-01-64 12:09:00* Test Item Value Reference Range Interpretation Comments Total Bilirubin (test code = 1975-2) 0.3 0.2-1.2 [facility] CenterAspartate Amino Transf (AST/SGOT) 2018-07-11 12:09:00* Test Item Value Reference Range Interpretation Comments Aspartate Amino Transf (AST/SGOT) (test code = Aspartate Amino Transf (AST/SGOT)) 17 5-34 [facility] CenterAlanine Aminotransferase (ALT/SGPT) 2018-07-11 12:09:00* Test Item Value Reference Range Interpretation Comments Alanine Aminotransferase (ALT/SGPT) (test code = 1742-6) 18 0-55 [facility] CenterTotal Spbcctv7885-29-80 12:09:00* Test Item Value Reference Range Interpretation Comments Total Protein (test code = 2885-2) 6.9 6.5-8.1 [facility] CenterAlbumin2018-12-19 12:09:00* Test Item Value Reference Range Interpretation Comments Albumin (test code = 1751-7) 3.6 3.5-5.0 [facility] CenterGlobulin2018-12-19 12:09:00* Test Item Value Reference Range Interpretation Comments Globulin (test code = 15709-8) 3.3 2.3-3.5 [facility] CenterAlbumin/Globulin Jpcdl7425-37-43 12:09:00 * Test Item Value Reference Range Interpretation Comments Albumin/Globulin Ratio (test code = 1759-0) 1.1 0.8-2.0 [facility] CenterAlkaline Valpqbdsblc6194-11-14 12:09:00* Test Item Value Reference Range Interpretation Comments Alkaline Phosphatase (test code = 6768-6) 55 40-150 [facility] CenterCreatine Bscjfq6063-87-49 12:09:00* Test Item Value Reference Range Interpretation Comments Creatine Kinase (test code = 2157-6) 71 29-168 [facility] CenterActivated Partial Thromboplast Time 2018-07-11 12:09:00* Test Item Value Reference Range Interpretation Comments Activated Partial Thromboplast Time (test code = 75460-4) 20.8 23.8-35.5 L [facility] Centerodium Nogrj9844-54-32 12:09:00* Test Item Value Reference Range Interpretation Comments Sodium Level (test code = 2951-2) 141 136-145 [facility] CenterPotassium Bgnjc1426-97-03 12:09:00* Test Item Value Reference Range Interpretation Comments Potassium Level (test code = 2823-3) 4.5 3.5-5.1 [facility] CenterChloride Eelso7063-39-34 12:09:00* Test Item Value Reference Range Interpretation Comments Chloride Level (test code = 2075-0) 110 98-107 H [facility] CenterCarbon Dioxide Dgepb5688-88-27 12:09:00* Test Item Value Reference Range Interpretation Comments Carbon Dioxide Level (test code = 2028-9) 22 22-29 [facility] CenterAnion Wtu3366-57-27 12:09:00* Test Item Value Reference Range Interpretation Comments Anion Gap (test code = 64155-4) 13.5 8-16 [facility] CenterBlood Urea Romsclgd4365-74-58 12:09:00* Test Item Value Reference Range Interpretation Comments Blood Urea Nitrogen (test code = 3094-0) 28 7-26 H [facility] CenterCreatinine2018-12-19 12:09:00* Test Item Value Reference Range Interpretation Comments Creatinine (test code = 2160-0) 0.92 0.57-1.11 [facility] CenterBUN/Creatinine Cmity4719-83-23 12:09:00* Test Item Value Reference Range Interpretation Comments BUN/Creatinine Ratio (test code = 3097-3) 30 6-25 H [facility] CenterEstimat Glomerular Filtration Rate 2018-07-11 12:09:00* Test Item Value Reference Range Interpretation Comments Estimat Glomerular Filtration Rate (test code = 080399270) > 60 >60 Ranges were taken from the National Kidney Disease Education Program and the Jenise counts include [facility] Kid[facility] Foundation literature.Reference ranges:60 or greater: Isgrya15-23 ( for 3 consecutive months): Chronic kidney disease 15 or less: Kidney failureCovenant Medical CenterGlucose Xxlzq7671-02-04 12:09:00* Test Item Value Reference Range Interpretation Comments Glucose Level (test code = PFW2636) 62 74-118 L [facility] CenterCalcium Lzwzu9935-54-84 12:09:00* Test Item Value Reference Range Interpretation Comments Calcium Level (test code = 07854-4) 9.2 8.4-10.2 [facility] CenterTotal Rrsabeqox2359-53-55 12:09:00* Test Item Value Reference Range Interpretation Comments Total Bilirubin (test code = 1975-2) 0.3 0.2-1.2 [facility] CenterAspartate Amino Transf (AST/SGOT) 2018-07-11 12:09:00* Test Item Value Reference Range Interpretation Comments Aspartate Amino Transf (AST/SGOT) (test code = Aspartate Amino Transf (AST/SGOT)) 17 5-34 [facility] CenterAlanine Aminotransferase (ALT/SGPT) 2018-07-11 12:09:00* Test Item Value Reference Range Interpretation Comments Alanine Aminotransferase (ALT/SGPT) (test code = 1742-6) 18 0-55 [facility] CenterTotal Poibzks7429-08-18 12:09:00* Test Item Value Reference Range Interpretation Comments Total Protein (test code = 2885-2) 6.9 6.5-8.1 [facility] CenterAlbumin2018-12-19 12:09:00* Test Item Value Reference Range Interpretation Comments Albumin (test code = 1751-7) 3.6 3.5-5.0 [facility] CenterGlobulin2018-12-19 12:09:00* Test Item Value Reference Range Interpretation Comments Globulin (test code = 30226-6) 3.3 2.3-3.5 [facility] CenterAlbumin/Globulin Pziug4936-95-07 12:09:00 * Test Item Value Reference Range Interpretation Comments Albumin/Globulin Ratio (test code = 1759-0) 1.1 0.8-2.0 [facility] CenterAlkaline Svjdbhtphcv7315-60-26 12:09:00* Test Item Value Reference Range Interpretation Comments Alkaline Phosphatase (test code = 6768-6) 55 40-150 [facility] CenterCreatine Lrmjfb6700-54-97 12:09:00* Test Item Value Reference Range Interpretation Comments Creatine Kinase (test code = 2157-6) 71 29-168 [facility] CenterActivated Partial Thromboplast Time 2018-07-11 12:09:00* Test Item Value Reference Range Interpretation Comments Activated Partial Thromboplast Time (test code = 56515-6) 20.8 23.8-35.5 L [facility] CenterProthrombin Pjrf9424-26-96 11:59:00* Test Item Value Reference Range Interpretation Comments Prothrombin Time (test code = 5902-2) 13.5 11.9-14.5 [facility] CenterProthromb Time International Ratio 2018-07-11 11:59:00* Test Item Value Reference Range Interpretation Comments Prothromb Time International Ratio (test code = 6301-6) 0.95 Oral Anticoagulant Therapy INR Values:1. Low Intensity Therapy 1.5 - 2.02 . Moderate Intensity Therapy 2.0 - 3.03. High Intensity Therapy(1) 2.5 - 3. 54. High Intensity Therapy(2) 3.0 - 4.05. Panic Value INR > 5.0 [facility] CenterProthrombin Murx0834-13-91 11:59:00* Test Item Value Reference Range Interpretation Comments Prothrombin Time (test code = 5902-2) 13.5 11.9-14.5 [facility] CenterProthromb Time International Ratio 2018-07-11 11:59:00* Test Item Value Reference Range Interpretation Comments Prothromb Time International Ratio (test code = 6301-6) 0.95 Oral Anticoagulant Therapy INR Values:1. Low Intensity Therapy 1.5 - 2.02 . Moderate Intensity Therapy 2.0 - 3.03. High Intensity Therapy(1) 2.5 - 3. 54. High Intensity Therapy(2) 3.0 - 4.05. Panic Value INR > 5.0 [facility] CenterProthrombin Vjeq3990-11-75 11:59:00* Test Item Value Reference Range Interpretation Comments Prothrombin Time (test code = 5902-2) 13.5 11.9-14.5 [facility] CenterProthromb Time International Ratio 2018-07-11 11:59:00* Test Item Value Reference Range Interpretation Comments Prothromb Time International Ratio (test code = 6301-6) 0.95 Oral Anticoagulant Therapy INR Values:1. Low Intensity Therapy 1.5 - 2.02 . Moderate Intensity Therapy 2.0 - 3.03. High Intensity Therapy(1) 2.5 - 3. 54. High Intensity Therapy(2) 3.0 - 4.05. Panic Value INR > 5.0 [facility] CenterWhite Blood Admda2987-25-80 11:54:00* Test Item Value Reference Range Interpretation Comments White Blood Count (test code = 6690-2) 6.79 4.8-10.8 [facility] CenterRed Blood Uguvi3794-47-66 11:54:00* Test Item Value Reference Range Interpretation Comments Red Blood Count (test code = 789-8) 4.38 3.6-5.1 [facility] CenterHemoglobin2018-12-19 11:54:00* Test Item Value Reference Range Interpretation Comments Hemoglobin (test code = 30302-0) 11.4 12.0-16.0 L [facility] CenterHematocrit2018-12-19 11:54:00* Test Item Value Reference Range Interpretation Comments Hematocrit (test code = 4544-3) 38.1 34.2-44.1 [facility] CenterMean Corpuscular Kijeam5410-93-72 11:54:00* Test Item Value Reference Range Interpretation Comments Mean Corpuscular Volume (test code = 787-2) 87.0 81-99 [facility] CenterMean Corpuscular Eyyhjcfznh5057-78-23 11:54:00* Test Item Value Reference Range Interpretation Comments Mean Corpuscular Hemoglobin (test code = 785-6) 26.0 28-32 L [facility] Corpuscular Hemoglobin Concent 2018-07-11 11:54:00* Test Item Value Reference Range Interpretation Comments Mean Corpuscular Hemoglobin Concent (test code = 786-4) 29.9 31-35 L [facility] CenterRed Cell Distribution Cxjrh7460-63-62 11:54:00* Test Item Value Reference Range Interpretation Comments Red Cell Distribution Width (test code = 91444-4) 16.0 11.7 -14.4 H [facility] CenterPlatelet Kwufx8636-10-91 11:54:00* Test Item Value Reference Range Interpretation Comments Platelet Count (test code = 777-3) 204 140-360 [facility] CenterNeutrophils (%) (Auto)2018-07-11 11:54:00 * Test Item Value Reference Range Interpretation Comments Neutrophils (%) (Auto) (test code = 99123-1) 76.3 38.7-80.0 [facility] CenterLymphocytes (%) (Auto)2018-07-11 11:54:00 * Test Item Value Reference Range Interpretation Comments Lymphocytes (%) (Auto) (test code = 736-9) 10.3 18.0-39.1 L [facility] CenterMonocytes (%) (Auto)2018-07-11 11:54:00* Test Item Value Reference Range Interpretation Comments Monocytes (%) (Auto) (test code = 5905-5) 5.9 4.4-11.3 [facility] CenterEosinophils (%) (Auto)2018-07-11 11:54:00 * Test Item Value Reference Range Interpretation Comments Eosinophils (%) (Auto) (test code = 713-8) 2.7 0.0-6.0 [facility] CenterBasophils (%) (Auto)2018-07-11 11:54:00* Test Item Value Reference Range Interpretation Comments Basophils (%) (Auto) (test code = 706-2) 1.0 0.0-1.0 [facility] CenterIM GRANULOCYTES %2018-07-11 11:54:00* Test Item Value Reference Range Interpretation Comments IM GRANULOCYTES % (test code = IM GRANULOCYTES %) 3.8 0.0- 1.0 H [facility] CenterNeutrophils # (Auto)2018-07-11 11:54:00* Test Item Value Reference Range Interpretation Comments Neutrophils # (Auto) (test code = 751-8) 5.2 2.1-6.9 [facility] CenterLymphocytes # (Auto)2018-07-11 11:54:00* Test Item Value Reference Range Interpretation Comments Lymphocytes # (Auto) (test code = 42547-5) 0.7 1.0-3.2 L [facility] CenterMonocytes # (Auto)2018-07-11 11:54:00* Test Item Value Reference Range Interpretation Comments Monocytes # (Auto) (test code = 742-7) 0.4 0.2-0.8 [facility] CenterEosinophils # (Auto)2018-07-11 11:54:00* Test Item Value Reference Range Interpretation Comments Eosinophils # (Auto) (test code = 711-2) 0.2 0.0-0.4 [facility] CenterBasophils # (Auto)2018-07-11 11:54:00* Test Item Value Reference Range Interpretation Comments Basophils # (Auto) (test code = 704-7) 0.1 0.0-0.1 [facility] CenterAbsolute Immature Granulocyte (auto 2018-07-11 11:54:00* Test Item Value Reference Range Interpretation Comments Absolute Immature Granulocyte (auto (joseph t code = Absolute Immature Granulocyte (auto) 0.26 0-0.1 H [facility] CenterWhite Blood Zdszt9786-24-05 11:54:00* Test Item Value Reference Range Interpretation Comments White Blood Count (test code = 6690-2) 6.79 4.8-10.8 [facility] CenterRed Blood Fzfzo2381-66-48 11:54:00* Test Item Value Reference Range Interpretation Comments Red Blood Count (test code = 789-8) 4.38 3.6-5.1 [facility] CenterHemoglobin2018-12-19 11:54:00* Test Item Value Reference Range Interpretation Comments Hemoglobin (test code = 65775-3) 11.4 12.0-16.0 L [facility] CenterHematocrit2018-12-19 11:54:00* Test Item Value Reference Range Interpretation Comments Hematocrit (test code = 4544-3) 38.1 34.2-44.1 [facility] CenterMean Corpuscular Fokwxo6340-53-67 11:54:00* Test Item Value Reference Range Interpretation Comments Mean Corpuscular Volume (test code = 787-2) 87.0 81-99 [facility] CenterMean Corpuscular Lalimahsme1719-56-39 11:54:00* Test Item Value Reference Range Interpretation Comments Mean Corpuscular Hemoglobin (test code = 785-6) 26.0 28-32 L [facility] CenterMean Corpuscular Hemoglobin Concent 2018-07-11 11:54:00* Test Item Value Reference Range Interpretation Comments Mean Corpuscular Hemoglobin Concent (test code = 786-4) 29.9 31-35 L [facility] CenterRed Cell Distribution Ysypr7310-41-36 11:54:00* Test Item Value Reference Range Interpretation Comments Red Cell Distribution Width (test code = 45995-3) 16.0 11.7 -14.4 H [facility] CenterPlatelet Vmhjn3302-85-59 11:54:00* Test Item Value Reference Range Interpretation Comments Platelet Count (test code = 777-3) 204 140-360 [facility] CenterNeutrophils (%) (Auto)2018-07-11 11:54:00 * Test Item Value Reference Range Interpretation Comments Neutrophils (%) (Auto) (test code = 66335-3) 76.3 38.7-80.0 [facility] CenterLymphocytes (%) (Auto)2018-07-11 11:54:00 * Test Item Value Reference Range Interpretation Comments Lymphocytes (%) (Auto) (test code = 736-9) 10.3 18.0-39.1 L [facility] CenterMonocytes (%) (Auto)2018-07-11 11:54:00* Test Item Value Reference Range Interpretation Comments Monocytes (%) (Auto) (test code = 5905-5) 5.9 4.4-11.3 [facility] CenterEosinophils (%) (Auto)2018-07-11 11:54:00 * Test Item Value Reference Range Interpretation Comments Eosinophils (%) (Auto) (test code = 713-8) 2.7 0.0-6.0 [facility] CenterBasophils (%) (Auto)2018-07-11 11:54:00* Test Item Value Reference Range Interpretation Comments Basophils (%) (Auto) (test code = 706-2) 1.0 0.0-1.0 [facility] CenterIM GRANULOCYTES %2018-07-11 11:54:00* Test Item Value Reference Range Interpretation Comments IM GRANULOCYTES % (test code = IM GRANULOCYTES %) 3.8 0.0- 1.0 H [facility] CenterNeutrophils # (Auto)2018-07-11 11:54:00* Test Item Value Reference Range Interpretation Comments Neutrophils # (Auto) (test code = 751-8) 5.2 2.1-6.9 [facility] CenterLymphocytes # (Auto)2018-07-11 11:54:00* Test Item Value Reference Range Interpretation Comments Lymphocytes # (Auto) (test code = 63395-4) 0.7 1.0-3.2 L [facility] CenterMonocytes # (Auto)2018-07-11 11:54:00* Test Item Value Reference Range Interpretation Comments Monocytes # (Auto) (test code = 742-7) 0.4 0.2-0.8 [facility] CenterEosinophils # (Auto)2018-07-11 11:54:00* Test Item Value Reference Range Interpretation Comments Eosinophils # (Auto) (test code = 711-2) 0.2 0.0-0.4 [facility] CenterBasophils # (Auto)2018-07-11 11:54:00* Test Item Value Reference Range Interpretation Comments Basophils # (Auto) (test code = 704-7) 0.1 0.0-0.1 [facility] CenterAbsolute Immature Granulocyte (auto 2018-07-11 11:54:00* Test Item Value Reference Range Interpretation Comments Absolute Immature Granulocyte (auto (joseph t code = Absolute Immature Granulocyte (auto) 0.26 0-0.1 H [facility] CenterCT CERVICAL SPINE OP9302-51-11 11:47:00 [facility] [address] [place] [address] Patient Name: KALYANI TALAVERA MR #: [id number] : 1955 Age/Sex: 63/F Req #: [id number] Adm Physician: Ordered by: ELIESER DAWSON MD Report #: [id number] Location: ER Room/Bed: Procedure: [id number] CT/CT CERVICAL SPINE WO Exam Date: 07/11/18 [...] 1154 COPY TO: ELIESER DAWSON MD Bedside Povhpix4818-91-56 11:57:00* Test Item Value Reference Range Interpretation Comments Bedside Glucose (test code = 06866-4) 329 70-120 H Meter ID: [id number] Army Medical Centerodium Level 2018-07-03 09:09:00* Test Item Value Reference Range Interpretation Comments Sodium Level (test code = 2951-2) 132 136-145 L [facility] CenterPotassium Qixke1794-01-60 09:09:00* Test Item Value Reference Range Interpretation Comments Potassium Level (test code = 2823-3) 4.6 3.5-5.1 [facility] CenterChloride Mgbyl1161-77-80 09:09:00* Test Item Value Reference Range Interpretation Comments Chloride Level (test code = 2075-0) 95 98-107 L [facility] CenterCarbon Dioxide Szfze2200-98-75 09:09:00* Test Item Value Reference Range Interpretation Comments Carbon Dioxide Level (test code = 2028-9) 24 22-29 [facility] CenterAnion Klz6936-97-34 09:09:00* Test Item Value Reference Range Interpretation Comments Anion Gap (test code = 44075-4) 17.6 8-16 H [facility] CenterBlood Urea Nbouqcne3531-98-55 09:09:00* Test Item Value Reference Range Interpretation Comments Blood Urea Nitrogen (test code = 3094-0) 52 7-26 H [facility] CenterCreatinine2018-12-11 09:09:00* Test Item Value Reference Range Interpretation Comments Creatinine (test code = 2160-0) 1.72 0.57-1.11 H [facility] CenterBUN/Creatinine Mwxyt1717-45-14 09:09:00* Test Item Value Reference Range Interpretation Comments BUN/Creatinine Ratio (test code = 3097-3) 30 6-25 H [facility] CenterEstimat Glomerular Filtration Rate 2018-07-03 09:09:00* Test Item Value Reference Range Interpretation Comments Estimat Glomerular Filtration Rate (test code = 790305383) 30 >60 L Ranges were taken from the National Kidney Disease Education Program and the [facility] Kidney Foundation literature.Reference ranges:60 or greater: Crhgtx80-52 ( for 3 consecutive months): Chronic kidney disease 15 or less: Kidney failureCovenant Medical CenterGlucose Axlnw1680-24-48 09:09:00* Test Item Value Reference Range Interpretation Comments Glucose Level (test code = MUC1361) 218 74-118 H [facility] CenterCalcium Fwalj0616-68-04 09:09:00* Test Item Value Reference Range Interpretation Comments Calcium Level (test code = 89166-6) 9.1 8.4-10.2 [facility] CenterTotal Wotxjlryl4472-75-32 09:09:00* Test Item Value Reference Range Interpretation Comments Total Bilirubin (test code = 1975-2) 0.4 0.2-1.2 [facility] CenterAspartate Amino Transf (AST/SGOT) 2018-07-03 09:09:00* Test Item Value Reference Range Interpretation Comments Aspartate Amino Transf (AST/SGOT) (test code = Aspartate Amino Transf (AST/SGOT)) 9 5-34 [facility] CenterAlanine Aminotransferase (ALT/SGPT) 2018-07-03 09:09:00* Test Item Value Reference Range Interpretation Comments Alanine Aminotransferase (ALT/SGPT) (test code = 1742-6) 12 0-55 [facility] CenterTotal Yudwhbm1841-71-42 09:09:00* Test Item Value Reference Range Interpretation Comments Total Protein (test code = 2885-2) 7.2 6.5-8.1 [facility] CenterAlbumin2018-12-11 09:09:00* Test Item Value Reference Range Interpretation Comments Albumin (test code = 1751-7) 3.4 3.5-5.0 L [facility] CenterGlobulin2018-12-11 09:09:00* Test Item Value Reference Range Interpretation Comments Globulin (test code = 34559-0) 3.8 2.3-3.5 H [facility] CenterAlbumin/Globulin Hxgrz9047-13-14 09:09:00 * Test Item Value Reference Range Interpretation Comments Albumin/Globulin Ratio (test code = 1759-0) 0.9 0.8-2.0 [facility] CenterAlkaline Xgwlfctwmxv3771-79-22 09:09:00* Test Item Value Reference Range Interpretation Comments Alkaline Phosphatase (test code = 6768-6) 59 40-150 [facility] CenterCHEST SINGLE (NOT PORTABLE)2018-07-01 13:32:00 [facility] [address] [place] [address] Patient Name: KALYANI TALAVERA MR #: [id number] : 1955 Age/Sex: 63/F Req #: [id number] Adm Physician: LUCILLE OLIVO MD Ordered by: BENJAMIN MASTERS MD Report #: [id number] Location: [facility] Room/Bed: [place] [address] Procedure: [id number] DX/CHEST SINGLE (NOT PORTABLE) Exam Date: 07/01/18 [...] COPY TO: BENJAMIN MASTERS MD Hemoglobin A1c Umbsgrh5891-03-31 13:20:00* Test Item Value Reference Range Interpretation Comments Hemoglobin A1c Percent (test code = Hemoglobin A1c Percent) 8.4 4.0-7.0 H [facility] CenterHemoglobin A1c Xyftwrv8055-82-19 13:20:00 * Test Item Value Reference Range Interpretation Comments Hemoglobin A1c Percent (test code = Hemoglobin A1c Percent) 8.4 4.0-7.0 H [facility] CenterHemoglobin A1c Julafuq5536-74-10 13:20:00 * Test Item Value Reference Range Interpretation Comments Hemoglobin A1c Percent (test code = Hemoglobin A1c Percent) 8.4 4.0-7.0 H [facility] CenterHemoglobin A1c Qekahjb9744-36-72 13:20:00 * Test Item Value Reference Range Interpretation Comments Hemoglobin A1c Percent (test code = Hemoglobin A1c Percent) 8.4 4.0-7.0 H [facility] CenterVQ LUNG SCAN VENT CVSDZLDVG7659-52-67 16:24:00 [place] [address] Patient Name: KALYANI TALAVERA MR #: [id number] : 1955 Age/Sex: 63/F Req #: [id number] Adm Physician: LUCILLE OLIVO MD Ordered by: JACINDA BUSTILLOS MD Report #: [id number] Location: [facility] Room/Bed: [place] [address] Procedure: [id number] N M/VQ LUNG SCAN VENT PERFUSION Exam [...] COPY TO: JACINDA VILLAGOMEZ MD Creatine Kinase YZ0760-14-99 08:14:00* Test Item Value Reference Range Interpretation Comments Creatine Kinase MB (test code = 50649-1) 1.50 0-5.0 [facility] F3955-36-15 08:14:00* Test Item Value Reference Range Interpretation Comments Troponin I (test code = PXJ6027) < 0.001 0-0.300 [facility] CenterCreatine Sfveqj9412-90-40 08:07:00* Test Item Value Reference Range Interpretation Comments Creatine Kinase (test code = 2157-6) 61 29-168 [facility] CenterB-Type Natriuretic Hhrkbuo6038-72-18 07:10:00* Test Item Value Reference Range Interpretation Comments B-Type Natriuretic Peptide (test code = 85358-8) < 10.0 0-100 [facility] CenterWhite Blood Akodt4846-35-01 05:51:00* Test Item Value Reference Range Interpretation Comments White Blood Count (test code = 6690-2) 6.29 4.8-10.8 [facility] CenterRed Blood Yqnjz1729-04-93 05:51:00* Test Item Value Reference Range Interpretation Comments Red Blood Count (test code = 789-8) 4.36 3.6-5.1 [facility] CenterHemoglobin2018-12-06 05:51:00* Test Item Value Reference Range Interpretation Comments Hemoglobin (test code = 81188-7) 11.1 12.0-16.0 L [facility] CenterHematocrit2018-12-06 05:51:00* Test Item Value Reference Range Interpretation Comments Hematocrit (test code = 4544-3) 37.1 34.2-44.1 [facility] CenterMean Corpuscular Ycnyin4230-87-68 05:51:00* Test Item Value Reference Range Interpretation Comments Mean Corpuscular Volume (test code = 787-2) 85.1 81-99 [facility] CenterMean Corpuscular Ydtcjjjehb1427-63-06 05:51:00* Test Item Value Reference Range Interpretation Comments Mean Corpuscular Hemoglobin (test code = 785-6) 25.5 28-32 L [facility] CenterMean Corpuscular Hemoglobin Concent 2018-06-28 05:51:00* Test Item Value Reference Range Interpretation Comments Mean Corpuscular Hemoglobin Concent (test code = 786-4) 29.9 31-35 L [facility] CenterRed Cell Distribution Eekmx8728-88-01 05:51:00* Test Item Value Reference Range Interpretation Comments Red Cell Distribution Width (test code = 12867-5) 15.7 11.7 -14.4 H [facility] CenterPlatelet Wodhv0416-61-16 05:51:00* Test Item Value Reference Range Interpretation Comments Platelet Count (test code = 777-3) 162 140-360 [facility] CenterNeutrophils (%) (Auto)2018-06-28 05:51:00 * Test Item Value Reference Range Interpretation Comments Neutrophils (%) (Auto) (test code = 43499-8) 75.4 38.7-80.0 [facility] CenterLymphocytes (%) (Auto)2018-06-28 05:51:00 * Test Item Value Reference Range Interpretation Comments Lymphocytes (%) (Auto) (test code = 736-9) 13.0 18.0-39.1 L [facility] CenterMonocytes (%) (Auto)2018-06-28 05:51:00* Test Item Value Reference Range Interpretation Comments Monocytes (%) (Auto) (test code = 5905-5) 7.3 4.4-11.3 [facility] CenterEosinophils (%) (Auto)2018-06-28 05:51:00 * Test Item Value Reference Range Interpretation Comments Eosinophils (%) (Auto) (test code = 713-8) 2.7 0.0-6.0 [facility] CenterBasophils (%) (Auto)2018-06-28 05:51:00* Test Item Value Reference Range Interpretation Comments Basophils (%) (Auto) (test code = 706-2) 1.0 0.0-1.0 [facility] CenterIM GRANULOCYTES %2018-06-28 05:51:00* Test Item Value Reference Range Interpretation Comments IM GRANULOCYTES % (test code = IM GRANULOCYTES %) 0.6 0.0- 1.0 [facility] CenterNeutrophils # (Auto)2018-06-28 05:51:00* Test Item Value Reference Range Interpretation Comments Neutrophils # (Auto) (test code = 751-8) 4.7 2.1-6.9 [facility] CenterLymphocytes # (Auto)2018-06-28 05:51:00* Test Item Value Reference Range Interpretation Comments Lymphocytes # (Auto) (test code = 73022-1) 0.8 1.0-3.2 L [facility] CenterMonocytes # (Auto)2018-06-28 05:51:00* Test Item Value Reference Range Interpretation Comments Monocytes # (Auto) (test code = 742-7) 0.5 0.2-0.8 [facility] CenterEosinophils # (Auto)2018-06-28 05:51:00* Test Item Value Reference Range Interpretation Comments Eosinophils # (Auto) (test code = 711-2) 0.2 0.0-0.4 [facility] CenterBasophils # (Auto)2018-06-28 05:51:00* Test Item Value Reference Range Interpretation Comments Basophils # (Auto) (test code = 704-7) 0.1 0.0-0.1 [facility] CenterAbsolute Immature Granulocyte (auto 2018-06-28 05:51:00* Test Item Value Reference Range Interpretation Comments Absolute Immature Granulocyte (auto (joseph t code = Absolute Immature Granulocyte (auto) 0.04 0-0.1 [facility] CenterCHEST 2 GQTNU9309-01-04 04:37:00 [place] [address] Patient Name: KALYANI TALAVERA MR #: [id number] : 1955 Age/Sex: 63/F Req #: [id number] Adm Physician: Ordered by: JACQUES JANE MD Report #: [id number] Location: ER Room/Bed: Procedure: [id number] 0011 DX/CHEST [...] on 06/27/18439 COPY TO: JACQUES HOOD MD TVITLOP6027-15-86 13:15:00 RUN DATE: 06/21/18 [facility] PAGE 1 RUN TIME: 1316 Specimen Inqui ry RUN USER: INTERFACE PATIENT: KALYANI TALAVERA GOE ACCT #: [id number] LOC: [place] Leija #: [id number] AGE/SX: 63/F ROOM: RE06/19/18REG DR: Kb Bradford MD : [birth year] BED: DIS: STATUS: [facility] TLOC: SPEC #: [id number] RECD: 06/20/18 STATUS: [facility] #: [id number] MARILEE: 06/19/18- DR: Kb Bradford MD ENTERED: 06/20/18 SP TYPE: STOMACH OTHR DR: Lucille Torres MDORDERED: GROSS COPIES TO: Lucille Nur MD [address] [place], [place] [id number] Kb Bradford Si, MD 444 1959 #[id number] PROCEDURES: GROSS ( 06/21/18-1249) TISSUES: ANTRAL BIOPSY - H-PYLORI CLINICAL HIST ORY COLLECTION DATE: 06/19/18 DYSPHAGIA, HEARTBURN POST-OP DIAGNOSIS: HIATAL HERNIA, GASTRITIS FINAL DIAGNOSIS Stomach, antrum, biopsy: REACTIVE GASTROPATHY CONTROLLED GIEMSA STAIN NEGATIVE FOR HELICOBAC TER ORGANISMS NEGATIVE FOR MALIGNANCY MARYAM/sm D [address], [address] MACROSCOPIC The specimen is received in formalin, labeled with the ils ent's name, identified as "antrum bx", and consists of two gutierrez biopsy tissue m easuring 0.3 cm each, submitted for H E and Giemsa stains. GROSS PERFORM ED AT [facility] CONTINUED ON NEXT PAG E RUN DATE: 06/21/18 [facility] PAGE 2 RUN TIME: 1316 Specimen Inquiry RUN USER: INTERFACE SPEC #: [id number] PATIENT: KHANH TALAVERA #[id number] (Continued) MACROSCO PIC (Continued) [facility] [address] [place] [address] (p)[phone] MICROSCOPIC MICROSCOPIC PERFOR MED AT [facility] All of the stains, including any controls perfor med, stain appropriately. [facility] [address] [place] [address] (p)[phone] PERFORMING SITE Diagnosis performed at: [facility], [address] [place] [address] Signed SIGNATURE ON Stacey Koenig 06/21/18 1315 END OF REPORT B-Type Natriuretic Ixxlveq7612-13-37 03:14:00* Test Item Value Reference Range Interpretation Comments B-Type Natriuretic Peptide (test code = 25594-1) 10.5 0-100 [facility] CenterCreatine Kinase MF5358-34-36 03:14:00* Test Item Value Reference Range Interpretation Comments Creatine Kinase MB (test code = 83886-0) 1.30 0-5.0 [facility] CenterTroponin D8703-99-11 03:14:00* Test Item Value Reference Range Interpretation Comments Troponin I (test code = URQ9070) -0.001 0-0.300 [facility] CenterBedside Ymczgep8006-33-84 03:04:00* Test Item Value Reference Range Interpretation Comments Bedside Glucose (test code = 54272-3) 291 70-120 H Meter ID: [id number] Army Medical Centerodium Level 2018-04-03 02:45:00* Test Item Value Reference Range Interpretation Comments Sodium Level (test code = 2951-2) 140 136-145 [facility] CenterPotassium Wuefo9023-85-60 02:45:00* Test Item Value Reference Range Interpretation Comments Potassium Level (test code = 2823-3) 3.8 3.5-5.1 [facility] CenterChloride Dejrl9203-56-72 02:45:00* Test Item Value Reference Range Interpretation Comments Chloride Level (test code = 2075-0) 100 98-107 [facility] CenterCarbon Dioxide Uiuiq9919-51-59 02:45:00* Test Item Value Reference Range Interpretation Comments Carbon Dioxide Level (test code = 2028-9) 29 22-29 [facility] CenterAnion Der3006-81-98 02:45:00* Test Item Value Reference Range Interpretation Comments Anion Gap (test code = 58356-0) 14.8 8-16 [facility] CenterBlood Urea Qorsbojt0237-69-85 02:45:00* Test Item Value Reference Range Interpretation Comments Blood Urea Nitrogen (test code = 3094-0) 49 7-26 H [facility] CenterCreatinine2018-09-11 02:45:00* Test Item Value Reference Range Interpretation Comments Creatinine (test code = 2160-0) 1.93 0.57-1.11 H [facility] CenterBUN/Creatinine Buxnn2608-74-77 02:45:00* Test Item Value Reference Range Interpretation Comments BUN/Creatinine Ratio (test code = 3097-3) 25 6-25 [facility] CenterEstimat Glomerular Filtration Rate 2018-04-03 02:45:00* Test Item Value Reference Range Interpretation Comments Estimat Glomerular Filtration Rate (test code = 16163-2) 26 >60 L Ranges were taken from the National Kidney Disease Education Program and the Jenise counts include [facility] Kid[facility] Foundation literature.Reference ranges:60 or greater: Sokvbn91-12 ( for 3 consecutive months): Chronic kidney disease 15 or less: Kidney failureCovenant Medical CenterGlucose Ficpt3139-19-55 02:45:00* Test Item Value Reference Range Interpretation Comments Glucose Level (test code = DHZ4543) 58 74-118 LL Results called to LU HARMON RN at 0244 on 04/03/18 by Francoise Proctor. RB OK. [facility] CenterCalcium Dfboc8634-01-75 02:45:00* Test Item Value Reference Range Interpretation Comments Calcium Level (test code = 59899-8) 9.3 8.4-10.2 [facility] CenterTotal Mjexvtzil0400-16-04 02:45:00* Test Item Value Reference Range Interpretation Comments Total Bilirubin (test code = 1975-2) 0.2 0.2-1.2 [facility] CenterAspartate Amino Transf (AST/SGOT) 2018-04-03 02:45:00* Test Item Value Reference Range Interpretation Comments Aspartate Amino Transf (AST/SGOT) (test code = Aspartate Amino Transf (AST/SGOT)) 18 5-34 [facility] CenterAlanine Aminotransferase (ALT/SGPT) 2018-04-03 02:45:00* Test Item Value Reference Range Interpretation Comments Alanine Aminotransferase (ALT/SGPT) (test code = 1742-6) 18 0-55 [facility] CenterTotal Ruvlhrz9643-12-98 02:45:00* Test Item Value Reference Range Interpretation Comments Total Protein (test code = 2885-2) 7.3 6.5-8.1 [facility] CenterAlbumin2018-09-11 02:45:00* Test Item Value Reference Range Interpretation Comments Albumin (test code = 1751-7) 3.5 3.5-5.0 [facility] CenterGlobulin2018-09-11 02:45:00* Test Item Value Reference Range Interpretation Comments Globulin (test code = 47471-7) 3.8 2.3-3.5 H [facility] CenterAlbumin/Globulin Zoqbi9629-04-49 02:45:00 * Test Item Value Reference Range Interpretation Comments Albumin/Globulin Ratio (test code = 1759-0) 0.9 0.8-2.0 [facility] CenterAlkaline Utuhmyoveke4078-39-67 02:45:00* Test Item Value Reference Range Interpretation Comments Alkaline Phosphatase (test code = 6768-6) 56 40-150 [facility] CenterCreatine Mejyar0737-70-48 02:45:00* Test Item Value Reference Range Interpretation Comments Creatine Kinase (test code = 2157-6) 54 29-168 [facility] CenterUrine Jhhvr4949-99-75 02:37:00* Test Item Value Reference Range Interpretation Comments Urine Color (test code = 5778-6) COLORLESS YELLOW [facility] CenterUrine Ckidawc1101-92-53 02:37:00* Test Item Value Reference Range Interpretation Comments Urine Clarity (test code = 36396-0) CLEAR CLEAR [facility] CenterUrine Specific Gpbqsre3330-62-40 02:37:00 * Test Item Value Reference Range Interpretation Comments Urine Specific [place] (test code = 5811-5) 1.005 1.010-1.02 5 L [facility] CenterUrine qZ8669-28-65 02:37:00* Test Item Value Reference Range Interpretation Comments Urine pH (test code = 65102-8) 7 5-7 [facility] CenterUrine Leukocyte Bidsynnh7791-27-95 02:37:00* Test Item Value Reference Range Interpretation Comments Urine Leukocyte Esterase (test code = 5799-2) NEGATIVE NEGATIVE [facility] Nzlwcxq2470-42-89 02:37:00* Test Item Value Reference Range Interpretation Comments Urine Nitrite (test code = 80239-8) NEGATIVE NEGATIVE [facility] Xrfgghh7854-96-33 02:37:00* Test Item Value Reference Range Interpretation Comments Urine Protein (test code = 5804-0) NEGATIVE NEGATIVE [facility] Glucose (UA)2018-04-03 02:37:00* Test Item Value Reference Range Interpretation Comments Urine Glucose (UA) (test code = 2349-9) NEGATIVE NEGATIVE [facility] Ectskid0931-44-74 02:37:00* Test Item Value Reference Range Interpretation Comments Urine Ketones (test code = 50305-3) NEGATIVE NEGATIVE [facility] Ybvfmqksobkb6337-02-67 02:37:00* Test Item Value Reference Range Interpretation Comments Urine Urobilinogen (test code = 76605-3) 0.2 0.2-1 [facility] CenterUrine Hmfiexugb3311-55-77 02:37:00* Test Item Value Reference Range Interpretation Comments Urine Bilirubin (test code = 1978-6) NEGATIVE NEGATIVE [facility] Yzezv3704-17-31 02:37:00* Test Item Value Reference Range Interpretation Comments Urine Blood (test code = 62624-2) TRACE NEGATIVE H [facility] CenterUrine JAF1566-99-30 02:37:00* Test Item Value Reference Range Interpretation Comments Urine WBC (test code = 5821-4) 0-5 0-5 [facility] CenterUrine BCG5953-04-22 02:37:00* Test Item Value Reference Range Interpretation Comments Urine RBC (test code = 38934-0) 0-5 0-5 [facility] CenterUrine Plaimspt6793-94-19 02:37:00* Test Item Value Reference Range Interpretation Comments Urine Bacteria (test code = 98738-7) RARE NONE [facility] CenterUrine Epithelial Easeb9419-64-53 02:37:00 * Test Item Value Reference Range Interpretation Comments Urine Epithelial Cells (test code = 01071-0) FEW NONE [facility] CenterUrine Msbyy7575-34-75 02:37:00* Test Item Value Reference Range Interpretation Comments Urine Color (test code = 5778-6) COLORLESS YELLOW [facility] CenterUrine Zpizhtr5986-39-75 02:37:00* Test Item Value Reference Range Interpretation Comments Urine Clarity (test code = 29393-5) CLEAR CLEAR [facility] Specific Ikkqplg1934-81-70 02:37:00 * Test Item Value Reference Range Interpretation Comments Urine Specific [place] (test code = 5811-5) 1.005 1.010-1.02 5 L [facility] CenterUrine nA2938-83-72 02:37:00* Test Item Value Reference Range Interpretation Comments Urine pH (test code = 43817-9) 7 5-7 [facility] CenterUrine Leukocyte Lrndrctv7201-69-73 02:37:00* Test Item Value Reference Range Interpretation Comments Urine Leukocyte Esterase (test code = 5799-2) NEGATIVE NEGATIVE [facility] CenterUrine Dgjymnm6745-80-78 02:37:00* Test Item Value Reference Range Interpretation Comments Urine Nitrite (test code = 16003-4) NEGATIVE NEGATIVE [facility] CenterUrine Kcxlawk4459-25-46 02:37:00* Test Item Value Reference Range Interpretation Comments Urine Protein (test code = 5804-0) NEGATIVE NEGATIVE [facility] CenterUrine Glucose (UA)2018-04-03 02:37:00* Test Item Value Reference Range Interpretation Comments Urine Glucose (UA) (test code = 2349-9) NEGATIVE NEGATIVE [facility] CenterUrine Wpezopm1935-11-57 02:37:00* Test Item Value Reference Range Interpretation Comments Urine Ketones (test code = 35552-4) NEGATIVE NEGATIVE [facility] CenterUrine Qzibehtsqnkf3953-37-99 02:37:00* Test Item Value Reference Range Interpretation Comments Urine Urobilinogen (test code = 97459-9) 0.2 0.2-1 [facility] CenterUrine Lsvwbexzn6472-14-32 02:37:00* Test Item Value Reference Range Interpretation Comments Urine Bilirubin (test code = 1978-6) NEGATIVE NEGATIVE [facility] Xmjoz2810-26-24 02:37:00* Test Item Value Reference Range Interpretation Comments Urine Blood (test code = 64495-1) TRACE NEGATIVE H [facility] YDF9604-02-42 02:37:00* Test Item Value Reference Range Interpretation Comments Urine WBC (test code = 5821-4) 0-5 0-5 [facility] CenterU[facility] IRL5318-96-02 02:37:00* Test Item Value Reference Range Interpretation Comments Urine RBC (test code = 15817-3) 0-5 0-5 [facility] CenterUrine Brsvyqkz5063-82-19 02:37:00* Test Item Value Reference Range Interpretation Comments Urine Bacteria (test code = 49323-2) RARE NONE [facility] CenterUrine Epithelial Lpdpy0727-36-87 02:37:00 * Test Item Value Reference Range Interpretation Comments Urine Epithelial Cells (test code = 98750-8) FEW NONE [facility] CenterUrine Dubal4917-00-14 02:37:00* Test Item Value Reference Range Interpretation Comments Urine Color (test code = 5778-6) COLORLESS YELLOW [facility] CenterUrine Nlzbxno9780-61-70 02:37:00* Test Item Value Reference Range Interpretation Comments Urine Clarity (test code = 12208-6) CLEAR CLEAR [facility] Specific Ptrdfwm2999-76-06 02:37:00 * Test Item Value Reference Range Interpretation Comments Urine Specific [place] (test code = 5811-5) 1.005 1.010-1.02 5 L [facility] CenterUrine tV3916-83-18 02:37:00* Test Item Value Reference Range Interpretation Comments Urine pH (test code = 03386-7) 7 5-7 [facility] CenterUrine Leukocyte Ivaeecko5375-58-33 02:37:00* Test Item Value Reference Range Interpretation Comments Urine Leukocyte Esterase (test code = 5799-2) NEGATIVE NEGATIVE [facility] CenterU[facility] Kjdhxqf5758-27-23 02:37:00* Test Item Value Reference Range Interpretation Comments Urine Nitrite (test code = 22205-2) NEGATIVE NEGATIVE [facility] CenterUrine Xvglkku8877-43-93 02:37:00* Test Item Value Reference Range Interpretation Comments Urine Protein (test code = 5804-0) NEGATIVE NEGATIVE [facility] Glucose (UA)2018-04-03 02:37:00* Test Item Value Reference Range Interpretation Comments Urine Glucose (UA) (test code = 2349-9) NEGATIVE NEGATIVE [facility] CenterU[facility] Yvxogph4603-63-65 02:37:00* Test Item Value Reference Range Interpretation Comments Urine Ketones (test code = 88092-4) NEGATIVE NEGATIVE [facility] Nssyxtpuopil1507-90-56 02:37:00* Test Item Value Reference Range Interpretation Comments Urine Urobilinogen (test code = 39509-0) 0.2 0.2-1 [facility] CenterU[facility] Zzpddxjyg6385-33-27 02:37:00* Test Item Value Reference Range Interpretation Comments Urine Bilirubin (test code = 1978-6) NEGATIVE NEGATIVE [facility] CenterU[facility] Eydcv4213-74-80 02:37:00* Test Item Value Reference Range Interpretation Comments Urine Blood (test code = 54826-9) TRACE NEGATIVE H [facility] IKD6531-94-75 02:37:00* Test Item Value Reference Range Interpretation Comments Urine WBC (test code = 5821-4) 0-5 0-5 [facility] XVV8104-30-57 02:37:00* Test Item Value Reference Range Interpretation Comments Urine RBC (test code = 04099-1) 0-5 0-5 [facility] Nxobmrlz8423-73-34 02:37:00* Test Item Value Reference Range Interpretation Comments Urine Bacteria (test code = 38932-3) RARE NONE [facility] Epithelial Tkmga5941-57-56 02:37:00 * Test Item Value Reference Range Interpretation Comments Urine Epithelial Cells (test code = 10626-2) FEW NONE [facility] Ougja6437-57-17 02:37:00* Test Item Value Reference Range Interpretation Comments Urine Color (test code = 5778-6) COLORLESS YELLOW [facility] Pyjqicp6552-62-65 02:37:00* Test Item Value Reference Range Interpretation Comments Urine Clarity (test code = 75699-9) CLEAR CLEAR [facility] Specific Ojouxon5420-41-97 02:37:00 * Test Item Value Reference Range Interpretation Comments Urine Specific [place] (test code = 5811-5) 1.005 1.010-1.02 5 L [facility] fV8631-25-87 02:37:00* Test Item Value Reference Range Interpretation Comments Urine pH (test code = 33479-1) 7 5-7 [facility] Leukocyte Etddmavv2489-10-37 02:37:00* Test Item Value Reference Range Interpretation Comments Urine Leukocyte Esterase (test code = 5799-2) NEGATIVE NEGATIVE [facility] Pkhzjnf5868-76-12 02:37:00* Test Item Value Reference Range Interpretation Comments Urine Nitrite (test code = 18329-9) NEGATIVE NEGATIVE [facility] Eybbrey0417-36-33 02:37:00* Test Item Value Reference Range Interpretation Comments Urine Protein (test code = 5804-0) NEGATIVE NEGATIVE [facility] Glucose (UA)2018-04-03 02:37:00* Test Item Value Reference Range Interpretation Comments Urine Glucose (UA) (test code = 2349-9) NEGATIVE NEGATIVE [facility] Lgggxvf4077-85-77 02:37:00* Test Item Value Reference Range Interpretation Comments Urine Ketones (test code = 95964-8) NEGATIVE NEGATIVE [facility] Okewxbrsnipn8165-96-36 02:37:00* Test Item Value Reference Range Interpretation Comments Urine Urobilinogen (test code = 39247-1) 0.2 0.2-1 [facility] Nrqtxwyhr2297-68-08 02:37:00* Test Item Value Reference Range Interpretation Comments Urine Bilirubin (test code = 1978-6) NEGATIVE NEGATIVE [facility] Gqitk9999-61-24 02:37:00* Test Item Value Reference Range Interpretation Comments Urine Blood (test code = 28170-9) TRACE NEGATIVE H [facility] ZKL1411-10-71 02:37:00* Test Item Value Reference Range Interpretation Comments Urine WBC (test code = 5821-4) 0-5 0-5 [facility] EZN3861-01-17 02:37:00* Test Item Value Reference Range Interpretation Comments Urine RBC (test code = 77014-4) 0-5 0-5 [facility] Qusceupm2001-56-53 02:37:00* Test Item Value Reference Range Interpretation Comments Urine Bacteria (test code = 71395-2) RARE NONE [facility] Epithelial Cnwvt3749-58-37 02:37:00 * Test Item Value Reference Range Interpretation Comments Urine Epithelial Cells (test code = 87256-9) FEW NONE [facility] CenterWhite Blood Icaej3668-13-44 02:30:00* Test Item Value Reference Range Interpretation Comments White Blood Count (test code = 6690-2) 6.05 4.8-10.8 [facility] Blood Wfbrp8522-05-68 02:30:00* Test Item Value Reference Range Interpretation Comments Red Blood Count (test code = 789-8) 4.43 3.6-5.1 [facility] CenterHemoglobin2018-09-11 02:30:00* Test Item Value Reference Range Interpretation Comments Hemoglobin (test code = 47862-5) 11.5 12.0-16.0 L [facility] CenterHematocrit2018-09-11 02:30:00* Test Item Value Reference Range Interpretation Comments Hematocrit (test code = 4544-3) 38.3 34.2-44.1 [facility]Mean Corpuscular Nfiajp1197-61-89 02:30:00* Test Item Value Reference Range Interpretation Comments Mean Corpuscular Volume (test code = 787-2) 86.5 81-99 [facility]Mean Corpuscular Tpejrccnkc5793-39-60 02:30:00* Test Item Value Reference Range Interpretation Comments Mean Corpuscular Hemoglobin (test code = 785-6) 26.0 28-32 L [facility] CenterMean Corpuscular Hemoglobin Concent 2018-04-03 02:30:00* Test Item Value Reference Range Interpretation Comments Mean Corpuscular Hemoglobin Concent (test code = 786-4) 30.0 31-35 L [facility] CenterRed Cell Distribution Vpuaj8532-98-90 02:30:00* Test Item Value Reference Range Interpretation Comments Red Cell Distribution Width (test code = 31717-9) 15.9 11.7 -14.4 H [facility] CenterPlatelet Grwcz1109-91-54 02:30:00* Test Item Value Reference Range Interpretation Comments Platelet Count (test code = 777-3) 175 140-360 [facility] CenterNeutrophils (%) (Auto)2018-04-03 02:30:00 * Test Item Value Reference Range Interpretation Comments Neutrophils (%) (Auto) (test code = 04895-0) 69.7 38.7-80.0 [facility] CenterLymphocytes (%) (Auto)2018-04-03 02:30:00 * Test Item Value Reference Range Interpretation Comments Lymphocytes (%) (Auto) (test code = 736-9) 18.5 18.0-39.1 [facility] CenterMonocytes (%) (Auto)2018-04-03 02:30:00* Test Item Value Reference Range Interpretation Comments Monocytes (%) (Auto) (test code = 5905-5) 6.8 4.4-11.3 [facility] CenterEosinophils (%) (Auto)2018-04-03 02:30:00 * Test Item Value Reference Range Interpretation Comments Eosinophils (%) (Auto) (test code = 713-8) 3.3 0.0-6.0 [facility] CenterBas[facility] (%) (Auto)2018-04-03 02:30:00* Test Item Value Reference Range Interpretation Comments Basophils (%) (Auto) (test code = 706-2) 1.0 0.0-1.0 [facility] CenterIM GRANULOCYTES %2018-04-03 02:30:00* Test Item Value Reference Range Interpretation Comments IM GRANULOCYTES % (test code = IM GRANULOCYTES %) 0.7 0.0- 1.0 [facility] CenterNeutrophils # (Auto)2018-04-03 02:30:00* Test Item Value Reference Range Interpretation Comments Neutrophils # (Auto) (test code = 751-8) 4.2 2.1-6.9 [facility] CenterLymphocytes # (Auto)2018-04-03 02:30:00* Test Item Value Reference Range Interpretation Comments Lymphocytes # (Auto) (test code = 27729-5) 1.1 1.0-3.2 [facility] CenterMonocytes # (Auto)2018-04-03 02:30:00* Test Item Value Reference Range Interpretation Comments Monocytes # (Auto) (test code = 742-7) 0.4 0.2-0.8 [facility] CenterEosinophils # (Auto)2018-04-03 02:30:00* Test Item Value Reference Range Interpretation Comments Eosinophils # (Auto) (test code = 711-2) 0.2 0.0-0.4 [facility] CenterBasophils # (Auto)2018-04-03 02:30:00* Test Item Value Reference Range Interpretation Comments Basophils # (Auto) (test code = 704-7) 0.1 0.0-0.1 [facility] CenterAbsolute Immature Granulocyte (auto 2018-04-03 02:30:00* Test Item Value Reference Range Interpretation Comments Absolute Immature Granulocyte (auto (joseph t code = Absolute Immature Granulocyte (auto) 0.04 0-0.1 [facility]2018-04-03 02:16:00 [facility] [address] [address] Patient Name: KALYANI TALAVERA MR #: [id number] : 1955 Age/Sex: 63/F Req #: [id number] Adm Physician: Ordered by: ROBERT OLIVIA MD Report #: [id number] Location: ER Room/Bed: Procedure: [id number] DX/CHEST SINGLE (PORTABLE) Ex am Date: Exam [...] 04/03/18216 COPY TO: ROBERT OLIVIA MD Bedside Eapdafu7132-86-30 11:36:00* Test Item Value Reference Range Interpretation Comments Bedside Glucose (test code = 94737-8) 348 70-120 H Meter ID: [id number] Medical CenterCreatine Kinase MB 2018-02-05 06:30:00* Test Item Value Reference Range Interpretation Comments Creatine Kinase MB (test code = 57662-0) 1.40 0-5.0 [facility] CenterTroponin I2253-76-95 06:30:00* Test Item Value Reference Range Interpretation Comments Troponin I (test code = CSE9749) 0.007 0-0.300 [facility] CenterCreatine Slixsw2093-05-45 06:23:00* Test Item Value Reference Range Interpretation Comments Creatine Kinase (test code = 2157-6) 53 29-168 [facility] CenterTriglycerides Gajam9304-27-83 06:10:00* Test Item Value Reference Range Interpretation Comments Triglycerides Level (test code = 2571-8) 159 0-149 H [facility] CenterCholesterol Odksd6816-13-55 06:10:00* Test Item Value Reference Range Interpretation Comments Cholesterol Level (test code = 2093-3) 180 0-199 Less than 200 mg/dL Low Vrgz934 - 239 mg/dL Borderline Qqsr442 m g/dl and greater High Risk [facility] CenterLDL Slporwhsciy8900-35-23 06:10:00* Test Item Value Reference Range Interpretation Comments LDL Cholesterol (test code = 2089-1) 118 60-130 [facility] CenterHDL Eduaepcwnej6213-90-43 06:10:00* Test Item Value Reference Range Interpretation Comments HDL Cholesterol (test code = 2085-9) 30 40-60 L [facility] CenterCholesterol/HDL Skjwv7603-40-79 06:10:00 * Test Item Value Reference Range Interpretation Comments Cholesterol/HDL Ratio (test code = 9830-1) 6.0 3.0-3.6 H [facility] CenterTriglycerides Lqtpx2464-94-77 06:10:00* Test Item Value Reference Range Interpretation Comments Triglycerides Level (test code = 2571-8) 159 0-149 H [facility] CenterCholesterol Mwymm5965-94-90 06:10:00* Test Item Value Reference Range Interpretation Comments Cholesterol Level (test code = 2093-3) 180 0-199 Less than 200 mg/dL Low Girk423 - 239 mg/dL Borderline Mhdg144 m g/dl and greater High Risk [facility] CenterLDL Jswwsrxjcym4519-66-22 06:10:00* Test Item Value Reference Range Interpretation Comments LDL Cholesterol (test code = 2089-1) 118 60-130 [facility] CenterHDL Fslrxlukvib5076-05-46 06:10:00* Test Item Value Reference Range Interpretation Comments HDL Cholesterol (test code = 2085-9) 30 40-60 L [facility] CenterCholesterol/HDL Lueza9176-83-83 06:10:00 * Test Item Value Reference Range Interpretation Comments Cholesterol/HDL Ratio (test code = 9830-1) 6.0 3.0-3.6 H [facility] CenterTriglycerides Doqch0288-52-74 06:10:00* Test Item Value Reference Range Interpretation Comments Triglycerides Level (test code = 2571-8) 159 0-149 H [facility] CenterCholesterol Xclah9548-17-59 06:10:00* Test Item Value Reference Range Interpretation Comments Cholesterol Level (test code = 2093-3) 180 0-199 Less than 200 mg/dL Low Thlf655 - 239 mg/dL Borderline Hxhv447 m g/dl and greater High Risk [facility] CenterLDL Jjstpwznpqd9178-52-48 06:10:00* Test Item Value Reference Range Interpretation Comments LDL Cholesterol (test code = 2089-1) 118 60-130 [facility] Oammpmgcpis3410-39-43 06:10:00* Test Item Value Reference Range Interpretation Comments HDL Cholesterol (test code = 2085-9) 30 40-60 L [facility] CenterCholesterol/HDL Hrufg4281-67-92 06:10:00 * Test Item Value Reference Range Interpretation Comments Cholesterol/HDL Ratio (test code = 9830-1) 6.0 3.0-3.6 H [facility] CenterTriglycerides Yjuka9768-37-94 06:10:00* Test Item Value Reference Range Interpretation Comments Triglycerides Level (test code = 2571-8) 159 0-149 H [facility] CenterCholesterol Napss9982-35-81 06:10:00* Test Item Value Reference Range Interpretation Comments Cholesterol Level (test code = 2093-3) 180 0-199 Less than 200 mg/dL Low Tpmg963 - 239 mg/dL Borderline Gijl965 m g/dl and greater High Risk [facility] CenterLDL Vsnuhnclazc2822-51-17 06:10:00* Test Item Value Reference Range Interpretation Comments LDL Cholesterol (test code = 2089-1) 118 60-130 [facility] Nfnslgdcjka9099-11-00 06:10:00* Test Item Value Reference Range Interpretation Comments HDL Cholesterol (test code = 2085-9) 30 40-60 L [facility] CenterCholesterol/HDL Yffqk5123-01-75 06:10:00 * Test Item Value Reference Range Interpretation Comments Cholesterol/HDL Ratio (test code = 9830-1) 6.0 3.0-3.6 H [facility] CenterTriglycerides Ckazj8499-50-76 06:10:00* Test Item Value Reference Range Interpretation Comments Triglycerides Level (test code = 2571-8) 159 0-149 H [facility] CenterCholesterol Przgg4719-33-91 06:10:00* Test Item Value Reference Range Interpretation Comments Cholesterol Level (test code = 2093-3) 180 0-199 Less than 200 mg/dL Low Gedq047 - 239 mg/dL Borderline Brgp713 m g/dl and greater High Risk [facility] CenterLDL Mwraitnrcwk4052-45-77 06:10:00* Test Item Value Reference Range Interpretation Comments LDL Cholesterol (test code = 2089-1) 118 60-130 [facility] Pihplxdsbiv1794-83-19 06:10:00* Test Item Value Reference Range Interpretation Comments HDL Cholesterol (test code = 2085-9) 30 40-60 L [facility] CenterCholesterol/HDL Fxist5383-52-53 06:10:00 * Test Item Value Reference Range Interpretation Comments Cholesterol/HDL Ratio (test code = 9830-1) 6.0 3.0-3.6 H [facility]2018-02-04 11:35:00 [facility] [address] [address] Patient Name: KALYANI TALAVERA MR #: [id number] : 1955 Age/Sex: 62/F Req #: [id number] Adm Physician: Ordered by: ROBERT OLIVIA MD Report #: [id number] Location: ER Room/Bed: Procedure: [id number] DX/CHEST SINGLE (PORTABLE) Ex am Date: 02/04/18 [...] BURGER MD 34 Transcribed By: JIM on 02/04/185 COPY TO: ROBERT OLIVIA MD White Blood Ivfht7606-49-24 11:19:00* Test Item Value Reference Range Interpretation Comments White Blood Count (test code = 6690-2) 6.94 4.8-10.8 [facility] CenterRed Blood Crqpi1623-92-37 11:19:00* Test Item Value Reference Range Interpretation Comments Red Blood Count (test code = 789-8) 4.49 3.6-5.1 [facility] CenterHemoglobin2018-07-15 11:19:00* Test Item Value Reference Range Interpretation Comments Hemoglobin (test code = 97213-4) 11.3 12.0-16.0 L [facility] CenterHematocrit2018-07-15 11:19:00* Test Item Value Reference Range Interpretation Comments Hematocrit (test code = 4544-3) 37.6 34.2-44.1 [facility] CenterMean Corpuscular Ijangn9460-48-95 11:19:00* Test Item Value Reference Range Interpretation Comments Mean Corpuscular Volume (test code = 787-2) 83.7 81-99 [facility] CenterMean Corpuscular Yrlaiatyrg7532-16-47 11:19:00* Test Item Value Reference Range Interpretation Comments Mean Corpuscular Hemoglobin (test code = 785-6) 25.2 28-32 L [facility] CenterMean Corpuscular Hemoglobin Concent 2018-02-04 11:19:00* Test Item Value Reference Range Interpretation Comments Mean Corpuscular Hemoglobin Concent (test code = 786-4) 30.1 31-35 L [facility] CenterRed Cell Distribution Dincq5346-07-54 11:19:00* Test Item Value Reference Range Interpretation Comments Red Cell Distribution Width (test code = 93619-7) 15.7 11.7 -14.4 H [facility] CenterPlatelet Iionw9790-30-98 11:19:00* Test Item Value Reference Range Interpretation Comments Platelet Count (test code = 777-3) 217 140-360 [facility] CenterNeutrophils (%) (Auto)2018-02-04 11:19:00 * Test Item Value Reference Range Interpretation Comments Neutrophils (%) (Auto) (test code = 33634-1) 70.5 38.7-80.0 [facility] CenterLymphocytes (%) (Auto)2018-02-04 11:19:00 * Test Item Value Reference Range Interpretation Comments Lymphocytes (%) (Auto) (test code = 736-9) 19.0 18.0-39.1 [facility] CenterMonocytes (%) (Auto)2018-02-04 11:19:00* Test Item Value Reference Range Interpretation Comments Monocytes (%) (Auto) (test code = 5905-5) 5.3 4.4-11.3 [facility] CenterEosinophils (%) (Auto)2018-02-04 11:19:00 * Test Item Value Reference Range Interpretation Comments Eosinophils (%) (Auto) (test code = 713-8) 3.2 0.0-6.0 [facility] CenterBasophils (%) (Auto)2018-02-04 11:19:00* Test Item Value Reference Range Interpretation Comments Basophils (%) (Auto) (test code = 706-2) 1.0 0.0-1.0 [facility] CenterIM GRANULOCYTES %2018-02-04 11:19:00* Test Item Value Reference Range Interpretation Comments IM GRANULOCYTES % (test code = IM GRANULOCYTES %) 1.0 0.0- 1.0 [facility] CenterNeutrophils # (Auto)2018-02-04 11:19:00* Test Item Value Reference Range Interpretation Comments Neutrophils # (Auto) (test code = 751-8) 4.9 2.1-6.9 [facility] CenterLymphocytes # (Auto)2018-02-04 11:19:00* Test Item Value Reference Range Interpretation Comments Lymphocytes # (Auto) (test code = 42684-8) 1.3 1.0-3.2 [facility] CenterMonocytes # (Auto)2018-02-04 11:19:00* Test Item Value Reference Range Interpretation Comments Monocytes # (Auto) (test code = 742-7) 0.4 0.2-0.8 [facility] CenterEosinophils # (Auto)2018-02-04 11:19:00* Test Item Value Reference Range Interpretation Comments Eosinophils # (Auto) (test code = 711-2) 0.2 0.0-0.4 [facility] CenterBasophils # (Auto)2018-02-04 11:19:00* Test Item Value Reference Range Interpretation Comments Basophils # (Auto) (test code = 704-7) 0.1 0.0-0.1 [facility] CenterAbsolute Immature Granulocyte (auto 2018-02-04 11:19:00* Test Item Value Reference Range Interpretation Comments Absolute Immature Granulocyte (auto (joseph t code = Absolute Immature Granulocyte (auto) 0.07 0-0.1 [facility] CenterU[facility] Rmirx3394-82-13 11:17:00* Test Item Value Reference Range Interpretation Comments Urine Color (test code = 5778-6) YELLOW YELLOW [facility] CenterUrine Jwqpdjw5642-59-37 11:17:00* Test Item Value Reference Range Interpretation Comments Urine Clarity (test code = 52456-2) CLEAR CLEAR [facility] CenterU[facility] Specific Hjvpvpv5898-39-19 11:17:00 * Test Item Value Reference Range Interpretation Comments Urine Specific [place] (test code = 5811-5) 1.010 1.010-1.02 5 [facility] CenterU[facility] sY6806-98-72 11:17:00* Test Item Value Reference Range Interpretation Comments Urine pH (test code = 09503-2) 6 5-7 [facility] Center[facility] Leukocyte Calhyexq1575-31-76 11:17:00* Test Item Value Reference Range Interpretation Comments Urine Leukocyte Esterase (test code = 5799-2) NEGATIVE NEGATIVE [facility] CenterU[facility] Wwnnwqy9764-92-58 11:17:00* Test Item Value Reference Range Interpretation Comments Urine Nitrite (test code = 73284-1) NEGATIVE NEGATIVE [facility] CenterU[facility] Bjevbku4865-80-90 11:17:00* Test Item Value Reference Range Interpretation Comments Urine Protein (test code = 5804-0) NEGATIVE NEGATIVE [facility] CenterU[facility] Glucose (UA)2018-02-04 11:17:00* Test Item Value Reference Range Interpretation Comments Urine Glucose (UA) (test code = 2349-9) NEGATIVE NEGATIVE [facility] CenterU[facility] Dpdpdtf7292-40-69 11:17:00* Test Item Value Reference Range Interpretation Comments Urine Ketones (test code = 36037-9) NEGATIVE NEGATIVE [facility] CenterU[facility] Opiates Ortwfr0020-83-76 11:17:00* Test Item Value Reference Range Interpretation Comments Urine Opiates Screen (test code = 81748-3) NEGATIVE NEGATIVE [facility] CenterU[facility] Barbiturates Cmdrun3955-10-43 11:17:00* Test Item Value Reference Range Interpretation Comments Urine Barbiturates Screen (test code = 867533405) NEGATIVE NEGA TIVE [facility] CenterU[facility] Phencyclidine Dypcsj0948-48-98 11:17:00* Test Item Value Reference Range Interpretation Comments Urine Phencyclidine Screen (test code = 87878-5) NEGATIVE NEGAT MARY [facility] CenterU[facility] Amphetamines Uwvrwv3086-24-23 11:17:00* Test Item Value Reference Range Interpretation Comments Urine Amphetamines Screen (test code = 80400-8) NEGATIVE NEGATI VE [facility] CenterU[facility] Methamphetamines Pjjzoa8064-83-06 11:17:00* Test Item Value Reference Range Interpretation Comments Urine Methamphetamines Screen (test code = Urine Metha mphetamines Screen) NEGATIVE NEGATIVE [facility] CenterU[facility] Benzodiazepines Itewiy1447-35-70 11:17:00* Test Item Value Reference Range Interpretation Comments Urine Benzodiazepines Screen (test code = 87663-8) NEGATIVE NEG ATIVE [facility] CenterU[facility] Cocaine Aprctm8879-63-65 11:17:00* Test Item Value Reference Range Interpretation Comments Urine Cocaine Screen (test code = 3398-5) NEGATIVE NEGATIVE [facility] CenterU[facility] Cannabinoids Zltcxi9026-40-81 11:17:00* Test Item Value Reference Range Interpretation Comments Urine Cannabinoids Screen (test code = 23290-4) NEGATIVE NEGATI VE THESE RESULTS ARE FOR MEDICAL TREATMENT ONLYTHIS REPORT CONTAINS UNCONFIR MED SCREENING RESULTS*POSITIVE RESULTS WILL BE CONFIRMED BY REFERENCE LAB UPON R EQUEST CUT-OFFDRUG CLASS CONCENTRATION ng/mLAmphetamines 1000Methamphetamines 1000Cocaine 300Opiate 300Phencyc lidine 25Cannabinoid 50Barbiturates 300Benzodiazepine 300Methadone 300[facility] Ijigofomlarh0495-28-91 11:17:00* Test Item Value Reference Range Interpretation Comments Urine Urobilinogen (test code = 43870-7) 0.2 0.2-1 [facility] CenterU[facility] Gclaoenls8334-55-81 11:17:00* Test Item Value Reference Range Interpretation Comments Urine Bilirubin (test code = 1978-6) NEGATIVE NEGATIVE [facility] CenterU[facility] Ktucb0538-95-56 11:17:00* Test Item Value Reference Range Interpretation Comments Urine Blood (test code = 19632-6) NEGATIVE NEGATIVE [facility] CenterU[facility] ZTJ0017-10-48 11:17:00* Test Item Value Reference Range Interpretation Comments Urine WBC (test code = 5821-4) 0-5 0-5 [facility] Center[facility] VXX2153-39-66 11:17:00* Test Item Value Reference Range Interpretation Comments Urine RBC (test code = 44126-0) NONE 0-5 [facility] CenterU[facility] Fayyekjp1072-15-81 11:17:00* Test Item Value Reference Range Interpretation Comments Urine Bacteria (test code = 81235-3) FEW NONE [facility] CenterU[facility] Epithelial Kmopy8779-66-60 11:17:00 * Test Item Value Reference Range Interpretation Comments Urine Epithelial Cells (test code = 61563-7) MODERATE NONE [facility] CenterU[facility] Nzpoh7336-16-22 11:17:00* Test Item Value Reference Range Interpretation Comments Urine Mucus (test code = 8247-9) FEW RARE H [facility] CenterUrine Opiates Znaggw0442-51-59 11:17:00* Test Item Value Reference Range Interpretation Comments Urine Opiates Screen (test code = 89948-7) NEGATIVE NEGATIVE [facility] CenterU[facility] Barbiturates Arzigg6328-25-63 11:17:00* Test Item Value Reference Range Interpretation Comments Urine Barbiturates Screen (test code = 318481615) NEGATIVE NEGA TIVE [facility] CenterU[facility] Phencyclidine Fuebuw7845-36-96 11:17:00* Test Item Value Reference Range Interpretation Comments Urine Phencyclidine Screen (test code = 08015-1) NEGATIVE NEGAT MARY [facility] CenterU[facility] Amphetamines Ttsapg6186-80-23 11:17:00* Test Item Value Reference Range Interpretation Comments Urine Amphetamines Screen (test code = 89689-6) NEGATIVE NEGATI VE [facility] CenterU[facility] Methamphetamines Xgmbqe7506-61-57 11:17:00* Test Item Value Reference Range Interpretation Comments Urine Methamphetamines Screen (test code = Urine Metha mphetamines Screen) NEGATIVE NEGATIVE [facility] CenterU[facility] Benzodiazepines Sszvta7388-33-62 11:17:00* Test Item Value Reference Range Interpretation Comments Urine Benzodiazepines Screen (test code = 85437-0) NEGATIVE NEG ATIVE [facility] CenterU[facility] Cocaine Cdejbp5224-43-88 11:17:00* Test Item Value Reference Range Interpretation Comments Urine Cocaine Screen (test code = 3398-5) NEGATIVE NEGATIVE [facility] CenterU[facility] Cannabinoids Saxqwy4303-54-69 11:17:00* Test Item Value Reference Range Interpretation Comments Urine Cannabinoids Screen (test code = 89811-1) NEGATIVE NEGATI VE THESE RESULTS ARE FOR MEDICAL TREATMENT ONLYTHIS REPORT CONTAINS UNCONFIR MED SCREENING RESULTS*POSITIVE RESULTS WILL BE CONFIRMED BY REFERENCE LAB UPON R EQUEST CUT-OFFDRUG CLASS CONCENTRATION ng/mLAmphetamines 1000Methamphetamines 1000Cocaine 300Opiate 300Phencyc lidine 25Cannabinoid 50Barbiturates 300Benzodiazepine 300Methadone 300[facility] Nfnde0960-95-30 11:17:00* Test Item Value Reference Range Interpretation Comments Urine Mucus (test code = 8247-9) FEW RARE H [facility] CenterUrine Opiates Yfxusq8035-11-13 11:17:00* Test Item Value Reference Range Interpretation Comments Urine Opiates Screen (test code = 44710-7) NEGATIVE NEGATIVE [facility] CenterU[facility] Barbiturates Hrutpv2738-60-47 11:17:00* Test Item Value Reference Range Interpretation Comments Urine Barbiturates Screen (test code = 159060745) NEGATIVE NEGA TIVE [facility] Phencyclidine Vamnfb1031-24-84 11:17:00* Test Item Value Reference Range Interpretation Comments Urine Phencyclidine Screen (test code = 25575-6) NEGATIVE NEGAT M[facility] Center[facility] Amphetamines Wigpdf8012-59-11 11:17:00* Test Item Value Reference Range Interpretation Comments Urine Amphetamines Screen (test code = 28353-6) NEGATIVE NEGATI VE [facility] Center[facility] Methamphetamines Gnzblh5321-38-41 11:17:00* Test Item Value Reference Range Interpretation Comments Urine Methamphetamines Screen (test code = Urine Metha mphetamines Screen) NEGATIVE NEGATIVE [facility] Benzodiazepines Azbpcd3876-43-54 11:17:00* Test Item Value Reference Range Interpretation Comments Urine Benzodiazepines Screen (test code = 20487-3) NEGATIVE NEG ATIVE [facility] CenterU[facility] Cocaine Kxllpu7980-73-38 11:17:00* Test Item Value Reference Range Interpretation Comments Urine Cocaine Screen (test code = 3398-5) NEGATIVE NEGATIVE [facility] Center[facility] Cannabinoids Jtgdzf4163-11-12 11:17:00* Test Item Value Reference Range Interpretation Comments Urine Cannabinoids Screen (test code = 93993-1) NEGATIVE NEGATI VE THESE RESULTS ARE FOR MEDICAL TREATMENT ONLYTHIS REPORT CONTAINS UNCONFIR MED SCREENING RESULTS*POSITIVE RESULTS WILL BE CONFIRMED BY REFERENCE LAB UPON R EQUEST CUT-OFFDRUG CLASS CONCENTRATION ng/mLAmphetamines 1000Methamphetamines 1000Cocaine 300Opiate 300Phencyc lidine 25Cannabinoid 50Barbiturates 300Benzodiazepine 300Methadone 300[facility] Qngvi2061-42-17 11:17:00* Test Item Value Reference Range Interpretation Comments Urine Mucus (test code = 8247-9) FEW RARE H [facility] Center[facility] Opiates Mnjnqb4040-98-79 11:17:00* Test Item Value Reference Range Interpretation Comments Urine Opiates Screen (test code = 09233-3) NEGATIVE NEGATIVE [facility] Center[facility] Barbiturates Wtvjms2435-10-56 11:17:00* Test Item Value Reference Range Interpretation Comments Urine Barbiturates Screen (test code = 945227128) NEGATIVE NEGA TIVE [facility] Center[facility] Phencyclidine Aukhhi3791-02-60 11:17:00* Test Item Value Reference Range Interpretation Comments Urine Phencyclidine Screen (test code = 60901-0) NEGATIVE NEGAT MARY [facility] Center[facility] Amphetamines Dkielo1408-73-59 11:17:00* Test Item Value Reference Range Interpretation Comments Urine Amphetamines Screen (test code = 91108-3) NEGATIVE NEGATI VE [facility] Center[facility] Methamphetamines Fdzlqt6962-91-09 11:17:00* Test Item Value Reference Range Interpretation Comments Urine Methamphetamines Screen (test code = Urine Metha mphetamines Screen) NEGATIVE NEGATIVE [facility] Benzodiazepines Lrbcba7124-18-35 11:17:00* Test Item Value Reference Range Interpretation Comments Urine Benzodiazepines Screen (test code = 18124-8) NEGATIVE NEG ATIVE [facility] Center[facility] Cocaine Zgjymz9096-46-10 11:17:00* Test Item Value Reference Range Interpretation Comments Urine Cocaine Screen (test code = 3398-5) NEGATIVE NEGATIVE [facility] CenterU[facility] Cannabinoids Fjiaju9694-66-20 11:17:00* Test Item Value Reference Range Interpretation Comments Urine Cannabinoids Screen (test code = 77436-3) NEGATIVE NEGATI VE THESE RESULTS ARE FOR MEDICAL TREATMENT ONLYTHIS REPORT CONTAINS UNCONFIR MED SCREENING RESULTS*POSITIVE RESULTS WILL BE CONFIRMED BY REFERENCE LAB UPON R EQUEST CUT-OFFDRUG CLASS CONCENTRATION ng/mLAmphetamines 1000Methamphetamines 1000Cocaine 300Opiate 300Phencyc lidine 25Cannabinoid 50Barbiturates 300Benzodiazepine 300Methadone 300[facility] Center[facility] Qnnyo0355-12-26 11:17:00* Test Item Value Reference Range Interpretation Comments Urine Mucus (test code = 8247-9) FEW RARE H [facility] CenterU[facility] Opiates Ghxrff6333-93-91 11:17:00* Test Item Value Reference Range Interpretation Comments Urine Opiates Screen (test code = 39022-4) NEGATIVE NEGATIVE [facility] CenterU[facility] Barbiturates Mjjdeg7999-66-26 11:17:00* Test Item Value Reference Range Interpretation Comments Urine Barbiturates Screen (test code = 200269748) NEGATIVE NEGA TIVE [facility] Center[facility] Phencyclidine Lgypmt5484-44-32 11:17:00* Test Item Value Reference Range Interpretation Comments Urine Phencyclidine Screen (test code = 52239-3) NEGATIVE NEGAT AMRY [facility] Center[facility] Amphetamines Blyktz2512-80-91 11:17:00* Test Item Value Reference Range Interpretation Comments Urine Amphetamines Screen (test code = 43982-7) NEGATIVE NEGATI VE [facility] CenterU[facility] Methamphetamines Jbixla9749-94-92 11:17:00* Test Item Value Reference Range Interpretation Comments Urine Methamphetamines Screen (test code = Urine Metha mphetamines Screen) NEGATIVE NEGATIVE [facility] Center[facility] Benzodiazepines Fjfrvm3294-46-33 11:17:00* Test Item Value Reference Range Interpretation Comments Urine Benzodiazepines Screen (test code = 32949-0) NEGATIVE NEG ATIVE [facility] CenterU[facility] Cocaine Xiadfv8420-35-42 11:17:00* Test Item Value Reference Range Interpretation Comments Urine Cocaine Screen (test code = 3398-5) NEGATIVE NEGATIVE [facility] CenterU[facility] Cannabinoids Ujyldl5352-50-66 11:17:00* Test Item Value Reference Range Interpretation Comments Urine Cannabinoids Screen (test code = 34919-3) NEGATIVE NEGATI VE THESE RESULTS ARE FOR MEDICAL TREATMENT ONLYTHIS REPORT CONTAINS UNCONFIR MED SCREENING RESULTS*POSITIVE RESULTS WILL BE CONFIRMED BY REFERENCE LAB UPON R EQUEST CUT-OFFDRUG CLASS CONCENTRATION ng/mLAmphetamines 1000Methamphetamines 1000Cocaine 300Opiate 300Phencyc lidine 25Cannabinoid 50Barbiturates 300Benzodiazepine 300Methadone 300[facility] CenterUrine Hkffq6764-61-09 11:17:00* Test Item Value Reference Range Interpretation Comments Urine Mucus (test code = 8247-9) FEW RARE H [facility] CenterB-Type Natriuretic Njmeisi5701-45-96 11:08:00* Test Item Value Reference Range Interpretation Comments B-Type Natriuretic Peptide (test code = 78449-6) 29.0 0-100 [facility] Wqrkp2614-23-49 11:03:00* Test Item Value Reference Range Interpretation Comments Sodium Level (test code = 2951-2) 140 136-145 [facility] CenterPotassium Pcewb4343-85-68 11:03:00* Test Item Value Reference Range Interpretation Comments Potassium Level (test code = 2823-3) 3.7 3.5-5.1 [facility] CenterChloride Bxafe4105-06-93 11:03:00* Test Item Value Reference Range Interpretation Comments Chloride Level (test code = 2075-0) 100 98-107 [facility] CenterCarbon Dioxide Fepht2349-39-60 11:03:00* Test Item Value Reference Range Interpretation Comments Carbon Dioxide Level (test code = 2028-9) 28 22-29 [facility] CenterAnion Vhc1467-10-35 11:03:00* Test Item Value Reference Range Interpretation Comments Anion Gap (test code = 56703-7) 15.7 8-16 [facility] CenterBlood Urea Qhqevovl6396-90-02 11:03:00* Test Item Value Reference Range Interpretation Comments Blood Urea Nitrogen (test code = 3094-0) 39 7-26 H [facility] CenterCreatinine2018-07-15 11:03:00* Test Item Value Reference Range Interpretation Comments Creatinine (test code = 2160-0) 1.29 0.57-1.11 H [facility] CenterBUN/Creatinine Zkeds9852-28-15 11:03:00* Test Item Value Reference Range Interpretation Comments BUN/Creatinine Ratio (test code = 3097-3) 30 6-25 H [facility] CenterEstimat Glomerular Filtration Rate 2018-02-04 11:03:00* Test Item Value Reference Range Interpretation Comments Estimat Glomerular Filtration Rate (test code = 50439-1) 42 >60 L Ranges were taken from the National Kidney Disease Education Program and the Jenise counts include [facility] Kid[facility] Foundation literature.Reference ranges:60 or greater: Eymjzi60-96 ( for 3 consecutive months): Chronic kidney disease 15 or less: Kidney failureCH[facility] CenterGlucose Nxfmr6010-55-72 11:03:00* Test Item Value Reference Range Interpretation Comments Glucose Level (test code = XEM4537) 155 74-118 H [facility] CenterCalcium Hyldh4939-66-35 11:03:00* Test Item Value Reference Range Interpretation Comments Calcium Level (test code = 88744-3) 9.0 8.4-10.2 [facility] CenterMagnesium Icbge8283-60-65 11:03:00* Test Item Value Reference Range Interpretation Comments Magnesium Level (test code = 52741-5) 1.7 1.3-2.1 [facility] CenterTotal Rtzotawpi8818-57-71 11:03:00* Test Item Value Reference Range Interpretation Comments Total Bilirubin (test code = 1975-2) 0.4 0.2-1.2 [facility] CenterAspartate Amino Transf (AST/SGOT) 2018-02-04 11:03:00* Test Item Value Reference Range Interpretation Comments Aspartate Amino Transf (AST/SGOT) (test code = Aspartate Amino Transf (AST/SGOT)) 15 5-34 [facility] CenterAlanine Aminotransferase (ALT/SGPT) 2018-02-04 11:03:00* Test Item Value Reference Range Interpretation Comments Alanine Aminotransferase (ALT/SGPT) (test code = 1742-6) 20 0-55 [facility] CenterTotal Jgtuger5081-69-85 11:03:00* Test Item Value Reference Range Interpretation Comments Total Protein (test code = 2885-2) 6.7 6.5-8.1 [facility] CenterAlbumin2018-07-15 11:03:00* Test Item Value Reference Range Interpretation Comments Albumin (test code = 1751-7) 3.3 3.5-5.0 L [facility] CenterGlobulin2018-07-15 11:03:00* Test Item Value Reference Range Interpretation Comments Globulin (test code = 75981-6) 3.4 2.3-3.5 [facility] CenterAlbumin/Globulin Dvpai0576-56-74 11:03:00 * Test Item Value Reference Range Interpretation Comments Albumin/Globulin Ratio (test code = 1759-0) 1.0 0.8-2.0 [facility] CenterAlkaline Rchffbqfret3255-59-64 11:03:00* Test Item Value Reference Range Interpretation Comments Alkaline Phosphatase (test code = 6768-6) 63 40-150 [facility] CenterAmylase Chgrp8332-00-09 11:03:00* Test Item Value Reference Range Interpretation Comments Amylase Level (test code = 1798-8) 30 25-125 [facility] CenterLipase2018-07-15 11:03:00* Test Item Value Reference Range Interpretation Comments Lipase (test code = 3040-3) 16 8-78 [facility] CenterMagnesium Pwqrq6410-92-01 11:03:00* Test Item Value Reference Range Interpretation Comments Magnesium Level (test code = 87698-6) 1.7 1.3-2.1 [facility] CenterAmylase Qyugy9312-24-72 11:03:00* Test Item Value Reference Range Interpretation Comments Amylase Level (test code = 1798-8) 30 25-125 [facility] CenterLipase2018-07-15 11:03:00* Test Item Value Reference Range Interpretation Comments Lipase (test code = 3040-3) 16 8-78 [facility] CenterMagnesium Sxdyh1617-72-32 11:03:00* Test Item Value Reference Range Interpretation Comments Magnesium Level (test code = 92865-7) 1.7 1.3-2.1 [facility] CenterAmylase Ndaxu9732-51-74 11:03:00* Test Item Value Reference Range Interpretation Comments Amylase Level (test code = 1798-8) 30 25-125 [facility] CenterLipase2018-07-15 11:03:00* Test Item Value Reference Range Interpretation Comments Lipase (test code = 3040-3) 16 78 [facility] CenterMagnesium Rxxzd4750-19-88 11:03:00* Test Item Value Reference Range Interpretation Comments Magnesium Level (test code = 56416-8) 1.7 1.3-2.1 [facility] CenterAmylase Abznu5387-61-61 11:03:00* Test Item Value Reference Range Interpretation Comments Amylase Level (test code = 1798-8) 30 25-125 [facility] CenterLipase2018-07-15 11:03:00* Test Item Value Reference Range Interpretation Comments Lipase (test code = 3040-3) 16 [facility] CenterMagnesium Puydk7272-17-39 11:03:00* Test Item Value Reference Range Interpretation Comments Magnesium Level (test code = 11262-3) 1.7 1.3-2.1 [facility] CenterAmylase Mgtyq7749-45-54 11:03:00* Test Item Value Reference Range Interpretation Comments Amylase Level (test code = 1798-8) 30 25-125 [facility] CenterLipase2018-07-15 11:03:00* Test Item Value Reference Range Interpretation Comments Lipase (test code = 3040-3) 16 [facility] CenterB-Type Natriuretic Fpmxcaw5796-12-90 23:54:00* Test Item Value Reference Range Interpretation Comments B-Type Natriuretic Peptide (test code = 28680-8) 38.5 0-100 [facility] CenterCreatine Kinase ZD2185-32-88 23:54:00* Test Item Value Reference Range Interpretation Comments Creatine Kinase MB (test code = 26253-3) 1.10 0-5.0 [facility] CenterTroponin M6095-98-38 23:54:00* Test Item Value Reference Range Interpretation Comments Troponin I (test code = IVO7145) -0.001 0-0.300 [facility] CenterUrine QZH5745-44-89 23:42:00* Test Item Value Reference Range Interpretation Comments Urine WBC (test code = 5821-4) 0-5 0-5 [facility] CenterUrine IAC5078-27-20 23:42:00* Test Item Value Reference Range Interpretation Comments Urine RBC (test code = 27689-3) NONE 0-5 [facility] CenterUrine Wugsbbja4310-27-72 23:42:00* Test Item Value Reference Range Interpretation Comments Urine Bacteria (test code = 04780-7) RARE NONE [facility] CenterUrine Epithelial Hmduv8090-59-77 23:42:00 * Test Item Value Reference Range Interpretation Comments Urine Epithelial Cells (test code = 23421-1) RARE NONE [facility] Jpxhm3712-13-68 23:39:00* Test Item Value Reference Range Interpretation Comments Sodium Level (test code = 2951-2) 135 136-145 L [facility] CenterPotassium Rlkze9007-22-84 23:39:00* Test Item Value Reference Range Interpretation Comments Potassium Level (test code = 2823-3) 4.3 3.5-5.1 [facility] CenterChloride Pjbnn8278-38-56 23:39:00* Test Item Value Reference Range Interpretation Comments Chloride Level (test code = 2075-0) 99 98-107 [facility] CenterCarbon Dioxide Eybvo0421-43-41 23:39:00* Test Item Value Reference Range Interpretation Comments Carbon Dioxide Level (test code = 2028-9) 25 22-29 [facility] CenterAnion Fwu9540-31-10 23:39:00* Test Item Value Reference Range Interpretation Comments Anion Gap (test code = 80770-1) 15.3 8-16 [facility] CenterBlood Urea Iegtknkq5872-08-97 23:39:00* Test Item Value Reference Range Interpretation Comments Blood Urea Nitrogen (test code = 3094-0) 33 7-26 H [facility] CenterCreatinine2018-07-11 23:39:00* Test Item Value Reference Range Interpretation Comments Creatinine (test code = 2160-0) 1.41 0.57-1.11 H [facility] CenterBUN/Creatinine Srxjd6337-56-08 23:39:00* Test Item Value Reference Range Interpretation Comments BUN/Creatinine Ratio (test code = 3097-3) 23 6-25 [facility] CenterEstimat Glomerular Filtration Rate 2018-01-31 23:39:00* Test Item Value Reference Range Interpretation Comments Estimat Glomerular Filtration Rate (test code = 07741-3) 38 >60 L Ranges were taken from the National Kidney Disease Education Program and the Jenise counts [facility] Kid[facility] Foundation literature.Reference ranges:60 or greater: Ybfomr71-24 ( for 3 consecutive months): Chronic kidney disease 15 or less: Kidney failureCovenant Medical CenterGlucose Nmtly6408-90-52 23:39:00* Test Item Value Reference Range Interpretation Comments Glucose Level (test code = HFS5028) 622 74-118 HH Results called to Ann Rodriguez at 2338 on 01/31/18 by Andreea Olivier. [place]. [facility] CenterCalcium Nfadc2835-45-01 23:39:00* Test Item Value Reference Range Interpretation Comments Calcium Level (test code = 01299-3) 9.3 8.4-10.2 [facility] CenterMagnesium Aaqvq3061-84-53 23:39:00* Test Item Value Reference Range Interpretation Comments Magnesium Level (test code = 26888-3) 2.0 1.3-2.1 [facility] CenterTotal Bjdpihhkz8311-66-99 23:39:00* Test Item Value Reference Range Interpretation Comments Total Bilirubin (test code = 1975-2) 0.3 0.2-1.2 [facility] CenterAspartate Amino Transf (AST/SGOT) 2018-01-31 23:39:00* Test Item Value Reference Range Interpretation Comments Aspartate Amino Transf (AST/SGOT) (test code = Aspartate Amino Transf (AST/SGOT)) 10 5-34 [facility] CenterAlanine Aminotransferase (ALT/SGPT) 2018-01-31 23:39:00* Test Item Value Reference Range Interpretation Comments Alanine Aminotransferase (ALT/SGPT) (test code = 1742-6) 18 0-55 [facility] CenterTotal Bqxosii3329-08-67 23:39:00* Test Item Value Reference Range Interpretation Comments Total Protein (test code = 2885-2) 6.7 6.5-8.1 [facility] CenterAlbumin2018-07-11 23:39:00* Test Item Value Reference Range Interpretation Comments Albumin (test code = 1751-7) 3.4 3.5-5.0 L [facility] CenterGlobulin2018-07-11 23:39:00* Test Item Value Reference Range Interpretation Comments Globulin (test code = 47298-2) 3.3 2.3-3.5 [facility] CenterAlbumin/Globulin Kolhs8091-41-41 23:39:00 * Test Item Value Reference Range Interpretation Comments Albumin/Globulin Ratio (test code = 1759-0) 1.0 0.8-2.0 [facility] CenterAlkaline Ufwgulbvssk5271-04-28 23:39:00* Test Item Value Reference Range Interpretation Comments Alkaline Phosphatase (test code = 6768-6) 63 40-150 [facility] CenterCreatine Yatamx8741-68-94 23:39:00* Test Item Value Reference Range Interpretation Comments Creatine Kinase (test code = 2157-6) 40 29-168 [facility] CenterProthrombin Uqmj1219-83-08 23:34:00* Test Item Value Reference Range Interpretation Comments Prothrombin Time (test code = 5902-2) 13.5 11.9-14.5 [facility] CenterProthromb Time International Ratio 2018-01-31 23:34:00* Test Item Value Reference Range Interpretation Comments Prothromb Time International Ratio (test code = 6301-6) 1.11 Oral Anticoagulant Therapy INR Values:1. Low Intensity Therapy 1.5 - 2.02 . Moderate Intensity Therapy 2.0 - 3.03. High Intensity Therapy(1) 2.5 - 3. 54. High Intensity Therapy(2) 3.0 - 4.05. Panic Value INR > 5.0 [facility] CenterActivated Partial Thromboplast Time 2018-01-31 23:34:00* Test Item Value Reference Range Interpretation Comments Activated Partial Thromboplast Time (test code = 59050-0) 23.4 23.8-35.5 L [facility] CenterUrine Iccca9881-14-46 23:34:00* Test Item Value Reference Range Interpretation Comments Urine Color (test code = 5778-6) YELLOW YELLOW [facility] CenterUrine Xbodshb6959-72-18 23:34:00* Test Item Value Reference Range Interpretation Comments Urine Clarity (test code = 39074-2) CLEAR CLEAR [facility] CenterUrine Specific Rxsuqab0820-68-24 23:34:00 * Test Item Value Reference Range Interpretation Comments Urine Specific [place] (test code = 5811-5) 1.010 1.010-1.02 5 [facility] CenterUrine lZ3247-76-66 23:34:00* Test Item Value Reference Range Interpretation Comments Urine pH (test code = 65961-8) 6 5-7 [facility] CenterUrine Leukocyte Mtvkhkdw5935-54-19 23:34:00* Test Item Value Reference Range Interpretation Comments Urine Leukocyte Esterase (test code = 5799-2) NEGATIVE NEGATIVE [facility] CenterUrine Pnqyoew9250-44-56 23:34:00* Test Item Value Reference Range Interpretation Comments Urine Nitrite (test code = 77172-5) NEGATIVE NEGATIVE [facility] CenterUrine Jauecyz5120-29-73 23:34:00* Test Item Value Reference Range Interpretation Comments Urine Protein (test code = 5804-0) NEGATIVE NEGATIVE [facility] CenterUrine Glucose (UA)2018-01-31 23:34:00* Test Item Value Reference Range Interpretation Comments Urine Glucose (UA) (test code = 2349-9) 3+ NEGATIVE H [facility] CenterUrine Khaypdf1512-73-10 23:34:00* Test Item Value Reference Range Interpretation Comments Urine Ketones (test code = 72657-8) NEGATIVE NEGATIVE [facility] CenterUrine Btapdjftrypm5522-78-91 23:34:00* Test Item Value Reference Range Interpretation Comments Urine Urobilinogen (test code = 54035-2) 0.2 0.2-1 [facility] CenterUrine Dbegrsbsd6996-04-10 23:34:00* Test Item Value Reference Range Interpretation Comments Urine Bilirubin (test code = 1978-6) NEGATIVE NEGATIVE [facility] CenterUrine Nhbdi2250-67-12 23:34:00* Test Item Value Reference Range Interpretation Comments Urine Blood (test code = 23691-4) NEGATIVE NEGATIVE [facility] CenterProthrombin Wrtv4980-47-21 23:34:00* Test Item Value Reference Range Interpretation Comments Prothrombin Time (test code = 5902-2) 13.5 11.9-14.5 [facility] CenterProthromb Time International Ratio 2018-01-31 23:34:00* Test Item Value Reference Range Interpretation Comments Prothromb Time International Ratio (test code = 6301-6) 1.11 Oral Anticoagulant Therapy INR Values:1. Low Intensity Therapy 1.5 - 2.02 . Moderate Intensity Therapy 2.0 - 3.03. High Intensity Therapy(1) 2.5 - 3. 54. High Intensity Therapy(2) 3.0 - 4.05. Panic Value INR > 5.0 [facility] CenterActivated Partial Thromboplast Time 2018-01-31 23:34:00* Test Item Value Reference Range Interpretation Comments Activated Partial Thromboplast Time (test code = 07389-8) 23.4 23.8-35.5 L [facility] CenterProthrombin Road3024-77-30 23:34:00* Test Item Value Reference Range Interpretation Comments Prothrombin Time (test code = 5902-2) 13.5 11.9-14.5 [facility] CenterProthromb Time International Ratio 2018-01-31 23:34:00* Test Item Value Reference Range Interpretation Comments Prothromb Time International Ratio (test code = 6301-6) 1.11 Oral Anticoagulant Therapy INR Values:1. Low Intensity Therapy 1.5 - 2.02 . Moderate Intensity Therapy 2.0 - 3.03. High Intensity Therapy(1) 2.5 - 3. 54. High Intensity Therapy(2) 3.0 - 4.05. Panic Value INR > 5.0 [facility] CenterActivated Partial Thromboplast Time 2018-01-31 23:34:00* Test Item Value Reference Range Interpretation Comments Activated Partial Thromboplast Time (test code = 10963-6) 23.4 23.8-35.5 L [facility] CenterProthrombin Ryrz5132-31-36 23:34:00* Test Item Value Reference Range Interpretation Comments Prothrombin Time (test code = 5902-2) 13.5 11.9-14.5 [facility] CenterProthromb Time International Ratio 2018-01-31 23:34:00* Test Item Value Reference Range Interpretation Comments Prothromb Time International Ratio (test code = 6301-6) 1.11 Oral Anticoagulant Therapy INR Values:1. Low Intensity Therapy 1.5 - 2.02 . Moderate Intensity Therapy 2.0 - 3.03. High Intensity Therapy(1) 2.5 - 3. 54. High Intensity Therapy(2) 3.0 - 4.05. Panic Value INR > 5.0 [facility] CenterActivated Partial Thromboplast Time 2018-01-31 23:34:00* Test Item Value Reference Range Interpretation Comments Activated Partial Thromboplast Time (test code = 31390-5) 23.4 23.8-35.5 L [facility] CenterCHEST SINGLE (PORTABLE)2018-01-31 23:25:00 [facility] [address] [place] [address] Patient Name: KALYANI TALAVERA MR #: [id number] : 1955 Age/Sex: 62/F Req #: [id number] Adm Physician: Ordered by: FLO TOLBERT MD Report #: [id number] Location: ER Room/Bed: Procedure: [id number] DX/CHEST SINGLE (PORTABLE) E xam Date: 01/31/18 [...] COPY TO: FLO TOLBERT MD White Blood Vjwhx8347-45-96 23:20:00* Test Item Value Reference Range Interpretation Comments White Blood Count (test code = 6690-2) 5.55 4.8-10.8 [facility] CenterRed Blood Efwdg9907-83-27 23:20:00* Test Item Value Reference Range Interpretation Comments Red Blood Count (test code = 789-8) 4.21 3.6-5.1 [facility] CenterHemoglobin2018-07-11 23:20:00* Test Item Value Reference Range Interpretation Comments Hemoglobin (test code = 15470-3) 10.6 12.0-16.0 L [facility] CenterHematocrit2018-07-11 23:20:00* Test Item Value Reference Range Interpretation Comments Hematocrit (test code = 4544-3) 34.8 34.2-44.1 [facility] CenterMean Corpuscular Sfctdj6425-39-63 23:20:00* Test Item Value Reference Range Interpretation Comments Mean Corpuscular Volume (test code = 787-2) 82.7 81-99 [facility] CenterMean Corpuscular Iudptmmvya3273-87-36 23:20:00* Test Item Value Reference Range Interpretation Comments Mean Corpuscular Hemoglobin (test code = 785-6) 25.2 28-32 L [facility] CenterMean Corpuscular Hemoglobin Concent 2018-01-31 23:20:00* Test Item Value Reference Range Interpretation Comments Mean Corpuscular Hemoglobin Concent (test code = 786-4) 30.5 31-35 L [facility] CenterRed Cell Distribution Agzao2401-93-24 23:20:00* Test Item Value Reference Range Interpretation Comments Red Cell Distribution Width (test code = 50990-7) 15.5 11.7 -14.4 H [facility] CenterPlatelet Qkrvc5894-56-10 23:20:00* Test Item Value Reference Range Interpretation Comments Platelet Count (test code = 777-3) 176 140-360 [facility] CenterNeutrophils (%) (Auto)2018-01-31 23:20:00 * Test Item Value Reference Range Interpretation Comments Neutrophils (%) (Auto) (test code = 33800-7) 68.7 38.7-80.0 [facility] CenterLymphocytes (%) (Auto)2018-01-31 23:20:00 * Test Item Value Reference Range Interpretation Comments Lymphocytes (%) (Auto) (test code = 736-9) 21.8 18.0-39.1 [facility] CenterMonocytes (%) (Auto)2018-01-31 23:20:00* Test Item Value Reference Range Interpretation Comments Monocytes (%) (Auto) (test code = 5905-5) 5.0 4.4-11.3 [facility] CenterEosinophils (%) (Auto)2018-01-31 23:20:00 * Test Item Value Reference Range Interpretation Comments Eosinophils (%) (Auto) (test code = 713-8) 2.5 0.0-6.0 [facility] CenterBasophils (%) (Auto)2018-01-31 23:20:00* Test Item Value Reference Range Interpretation Comments Basophils (%) (Auto) (test code = 706-2) 0.9 0.0-1.0 [facility] CenterIM GRANULOCYTES %2018-01-31 23:20:00* Test Item Value Reference Range Interpretation Comments IM GRANULOCYTES % (test code = IM GRANULOCYTES %) 1.1 0.0- 1.0 H [facility] CenterNeutrophils # (Auto)2018-01-31 23:20:00* Test Item Value Reference Range Interpretation Comments Neutrophils # (Auto) (test code = 751-8) 3.8 2.1-6.9 [facility] CenterLymphocytes # (Auto)2018-01-31 23:20:00* Test Item Value Reference Range Interpretation Comments Lymphocytes # (Auto) (test code = 31255-9) 1.2 1.0-3.2 [facility] CenterMonocytes # (Auto)2018-01-31 23:20:00* Test Item Value Reference Range Interpretation Comments Monocytes # (Auto) (test code = 742-7) 0.3 0.2-0.8 [facility] CenterEosinophils # (Auto)2018-01-31 23:20:00* Test Item Value Reference Range Interpretation Comments Eosinophils # (Auto) (test code = 711-2) 0.1 0.0-0.4 [facility] CenterBasophils # (Auto)2018-01-31 23:20:00* Test Item Value Reference Range Interpretation Comments Basophils # (Auto) (test code = 704-7) 0.1 0.0-0.1 [facility] CenterAbsolute Immature Granulocyte (auto 2018-01-31 23:20:00* Test Item Value Reference Range Interpretation Comments Absolute Immature Granulocyte (auto (joseph t code = Absolute Immature Granulocyte (auto) 0.06 0-0.1 [facility] Wsugxqb4652-27-95 18:58:00* Test Item Value Reference Range Interpretation Comments Bedside Glucose (test code = 07454-3) 293 70-120 H Meter ID: [id number] [facility] Glucose 2017-12-28 14:17:00* Test Item Value Reference Range Interpretation Comments Bedside Glucose (test code = 89069-1) 330 70-120 H Meter ID: [id number] [facility] CenterKN[facility] THREE MJCZV3146-79-82 10:49:00 [facility] [address] [address] Patient Name: KALYANI TALAVERA MR #: [id number] : 1955 Age/Sex: 62/F Req #: [id number] Adm Physician: BENJAMIN MASTERS MD Ordered by: LUCILLE OLIVO MD Report #: [id number] Location: [facility] Room/Bed: [address] [address] Procedure: [id number] DX/KNEE RIGHT THREE VIEWS Exam Date: 12/27/17 [...] Level (test code = 2951-2) 137 136-145 [facility] CenterPotassium Omvhj0598-70-64 09:24:00* Test Item Value Reference Range Interpretation Comments Potassium Level (test code = 2823-3) 4.5 3.5-5.1 [facility] CenterChloride Rsodd8764-38-29 09:24:00* Test Item Value Reference Range Interpretation Comments Chloride Level (test code = 2075-0) 102 98-107 [facility] CenterCarbon Dioxide Gserg5683-19-97 09:24:00* Test Item Value Reference Range Interpretation Comments Carbon Dioxide Level (test code = 2028-9) 28 22-29 [facility] CenterAnion Wyo5803-32-92 09:24:00* Test Item Value Reference Range Interpretation Comments Anion Gap (test code = 23662-5) 11.5 8-16 [facility] CenterBlood Urea Jctpipqw7135-90-59 09:24:00* Test Item Value Reference Range Interpretation Comments Blood Urea Nitrogen (test code = 3094-0) 21 7-26 [facility] CenterCreatinine2018-06-04 09:24:00* Test Item Value Reference Range Interpretation Comments Creatinine (test code = 2160-0) 1.09 0.57-1.11 [facility] CenterBUN/Creatinine Jkvqp0854-88-85 09:24:00* Test Item Value Reference Range Interpretation Comments BUN/Creatinine Ratio (test code = 3097-3) 19 6-25 [facility] CenterEstimat Glomerular Filtration Rate 2017-12-25 09:24:00* Test Item Value Reference Range Interpretation Comments Estimat Glomerular Filtration Rate (test code = 68378-6) 51 >60 L Ranges were taken from the National Kidney Disease Education Program and the Jenise counts include [facility] literature.Reference ranges:60 or greater: Baiqwm52-82 ( for 3 consecutive months): Chronic kidney disease 15 or less: Kidney failureCovenant Medical CenterGlucose Wfybb7495-59-37 09:24:00* Test Item Value Reference Range Interpretation Comments Glucose Level (test code = ULX1828) 458 74-118 Results called to RANCHO CONTI RN at 0924 on 12/25/17 by Audi Manriquez. RB [place].Thi s test has been rerun and double checked for accuracy.[facility] CenterCalcium Vyhkh0802-29-74 09:24:00* Test Item Value Reference Range Interpretation Comments Calcium Level (test code = 58828-7) 9.0 8.4-10.2 [facility] CenterCreatine Kinase AZ4273-37-39 16:42:00* Test Item Value Reference Range Interpretation Comments Creatine Kinase MB (test code = 32559-7) 2.60 0-5.0 [facility] CenterTroponin G6641-50-46 16:42:00* Test Item Value Reference Range Interpretation Comments Troponin I (test code = NWE5204) -0.001 0-0.300 [facility] CenterCreatine Spsqcw6204-54-78 16:36:00* Test Item Value Reference Range Interpretation Comments Creatine Kinase (test code = 2157-6) 60 29-168 [facility] CenterTotal Uieywgiac5679-57-70 08:48:00* Test Item Value Reference Range Interpretation Comments Total Bilirubin (test code = 1975-2) 0.3 0.2-1.2 [facility] CenterAspartate Amino Transf (AST/SGOT) 2017-12-24 08:48:00* Test Item Value Reference Range Interpretation Comments Aspartate Amino Transf (AST/SGOT) (test code = Aspartate Amino Transf (AST/SGOT)) 23 5-34 [facility] CenterAlanine Aminotransferase (ALT/SGPT) 2017-12-24 08:48:00* Test Item Value Reference Range Interpretation Comments Alanine Aminotransferase (ALT/SGPT) (test code = 1742-6) 45 0-55 [facility] CenterTotal Owmgrox6504-08-75 08:48:00* Test Item Value Reference Range Interpretation Comments Total Protein (test code = 2885-2) 6.3 6.5-8.1 L [facility] CenterAlbumin2018-06-03 08:48:00* Test Item Value Reference Range Interpretation Comments Albumin (test code = 1751-7) 3.2 3.5-5.0 L [facility] CenterGlobulin2018-06-03 08:48:00* Test Item Value Reference Range Interpretation Comments Globulin (test code = 17451-0) 3.1 2.3-3.5 [facility] CenterAlbumin/Globulin Uzweh8784-21-37 08:48:00 * Test Item Value Reference Range Interpretation Comments Albumin/Globulin Ratio (test code = 1759-0) 1.0 0.8-2.0 [facility] CenterAlkaline Mfmxgcpqdlw4646-20-58 08:48:00* Test Item Value Reference Range Interpretation Comments Alkaline Phosphatase (test code = 6768-6) 71 40-150 [facility] CenterTriglycerides Ydpnc9903-07-97 08:48:00* Test Item Value Reference Range Interpretation Comments Triglycerides Level (test code = 2571-8) 218 0-149 H [facility] CenterCholesterol Wpipe9250-87-34 08:48:00* Test Item Value Reference Range Interpretation Comments Cholesterol Level (test code = 2093-3) 168 0-199 Less than 200 mg/dL Low Orbv838 - 239 mg/dL Borderline Oksw007 m g/dl and greater High Risk [facility] CenterLDL Jzcouajoxbs3640-97-77 08:48:00* Test Item Value Reference Range Interpretation Comments LDL Cholesterol (test code = 2089-1) 96 60-130 [facility] CenterHDL Cwfbzlwyfzb3776-88-95 08:48:00* Test Item Value Reference Range Interpretation Comments HDL Cholesterol (test code = 2085-9) 28 40-60 L [facility] CenterCholesterol/HDL Vlxpu4603-04-29 08:48:00 * Test Item Value Reference Range Interpretation Comments Cholesterol/HDL Ratio (test code = 9830-1) 6.0 3.0-3.6 H [facility] CenterTriglycerides Ttaan8898-39-07 08:48:00* Test Item Value Reference Range Interpretation Comments Triglycerides Level (test code = 2571-8) 218 0-149 H [facility] CenterCholesterol Mpkto8711-63-61 08:48:00* Test Item Value Reference Range Interpretation Comments Cholesterol Level (test code = 2093-3) 168 0-199 Less than 200 mg/dL Low Bman973 - 239 mg/dL Borderline Pjzn133 m g/dl and greater High Risk [facility] CenterLDL Hgfubmmlyzq7713-53-91 08:48:00* Test Item Value Reference Range Interpretation Comments LDL Cholesterol (test code = 2089-1) 96 60-130 [facility] CenterHDL Cfkuxgexjqo8344-59-81 08:48:00* Test Item Value Reference Range Interpretation Comments HDL Cholesterol (test code = 2085-9) 28 40-60 L [facility] CenterCholesterol/HDL Krprg5593-40-85 08:48:00 * Test Item Value Reference Range Interpretation Comments Cholesterol/HDL Ratio (test code = 9830-1) 6.0 3.0-3.6 H [facility] CenterWhite Blood Ptkwx8100-56-53 08:25:00* Test Item Value Reference Range Interpretation Comments White Blood Count (test code = 6690-2) 3.93 4.8-10.8 L [facility] CenterRed Blood Jfxbb6749-52-16 08:25:00* Test Item Value Reference Range Interpretation Comments Red Blood Count (test code = 789-8) 4.06 3.6-5.1 [facility] CenterHemoglobin2018-06-03 08:25:00* Test Item Value Reference Range Interpretation Comments Hemoglobin (test code = 04170-3) 10.2 12.0-16.0 L [facility] CenterHematocrit2018-06-03 08:25:00* Test Item Value Reference Range Interpretation Comments Hematocrit (test code = 4544-3) 34.0 34.2-44.1 L [facility] CenterMean Corpuscular Drmfbw9119-10-59 08:25:00* Test Item Value Reference Range Interpretation Comments Mean Corpuscular Volume (test code = 787-2) 83.7 81-99 [facility] CenterMean Corpuscular Lyjxvnfwnr7207-53-94 08:25:00* Test Item Value Reference Range Interpretation Comments Mean Corpuscular Hemoglobin (test code = 785-6) 25.1 28-32 L [facility] CenterMean Corpuscular Hemoglobin Concent 2017-12-24 08:25:00* Test Item Value Reference Range Interpretation Comments Mean Corpuscular Hemoglobin Concent (test code = 786-4) 30.0 31-35 L [facility] CenterRed Cell Distribution Ihzub2127-21-67 08:25:00* Test Item Value Reference Range Interpretation Comments Red Cell Distribution Width (test code = 49946-5) 15.2 11.7 -14.4 H [facility] CenterPlatelet Jenrm6606-65-08 08:25:00* Test Item Value Reference Range Interpretation Comments Platelet Count (test code = 777-3) 169 140-360 [facility] CenterNeutrophils (%) (Auto)2017-12-24 08:25:00 * Test Item Value Reference Range Interpretation Comments Neutrophils (%) (Auto) (test code = 24869-2) 59.0 38.7-80.0 [facility] CenterLymphocytes (%) (Auto)2017-12-24 08:25:00 * Test Item Value Reference Range Interpretation Comments Lymphocytes (%) (Auto) (test code = 736-9) 27.5 18.0-39.1 [facility] CenterMonocytes (%) (Auto)2017-12-24 08:25:00* Test Item Value Reference Range Interpretation Comments Monocytes (%) (Auto) (test code = 5905-5) 6.6 4.4-11.3 [facility] CenterEosinophils (%) (Auto)2017-12-24 08:25:00 * Test Item Value Reference Range Interpretation Comments Eosinophils (%) (Auto) (test code = 713-8) 4.8 0.0-6.0 [facility] CenterBasophils (%) (Auto)2017-12-24 08:25:00* Test Item Value Reference Range Interpretation Comments Basophils (%) (Auto) (test code = 706-2) 1.3 0.0-1.0 H [facility] CenterIM GRANULOCYTES %2017-12-24 08:25:00* Test Item Value Reference Range Interpretation Comments IM GRANULOCYTES % (test code = IM GRANULOCYTES %) 0.8 0.0- 1.0 [facility] CenterNeutrophils # (Auto)2017-12-24 08:25:00* Test Item Value Reference Range Interpretation Comments Neutrophils # (Auto) (test code = 751-8) 2.3 2.1-6.9 [facility] CenterLymphocytes # (Auto)2017-12-24 08:25:00* Test Item Value Reference Range Interpretation Comments Lymphocytes # (Auto) (test code = 95136-2) 1.1 1.0-3.2 [facility] CenterMonocytes # (Auto)2017-12-24 08:25:00* Test Item Value Reference Range Interpretation Comments Monocytes # (Auto) (test code = 742-7) 0.3 0.2-0.8 [facility] CenterEosinophils # (Auto)2017-12-24 08:25:00* Test Item Value Reference Range Interpretation Comments Eosinophils # (Auto) (test code = 711-2) 0.2 0.0-0.4 [facility] CenterBasophils # (Auto)2017-12-24 08:25:00* Test Item Value Reference Range Interpretation Comments Basophils # (Auto) (test code = 704-7) 0.1 0.0-0.1 [facility] CenterAbsolute Immature Granulocyte (auto 2017-12-24 08:25:00* Test Item Value Reference Range Interpretation Comments Absolute Immature Granulocyte (auto (joseph t code = Absolute Immature Granulocyte (auto) 0.03 0-0.1 [facility] CenterB-Type Natriuretic Ofmukbk5633-90-92 23:03:00* Test Item Value Reference Range Interpretation Comments B-Type Natriuretic Peptide (test code = 26598-7) 125.0 0-100 H [facility] CenterThyroid Stimulating Hormone (TSH) 2017-12-23 22:39:00* Test Item Value Reference Range Interpretation Comments Thyroid Stimulating Hormone (TSH) (test code = 31844-8) 0.865 0.350-4.940 [facility] CenterThyroid Stimulating Hormone (TSH) 2017-12-23 22:39:00* Test Item Value Reference Range Interpretation Comments Thyroid Stimulating Hormone (TSH) (test code = 42853-4) 0.865 0.350-4.940 [facility] CenterThyroid Stimulating Hormone (TSH) 2017-12-23 22:39:00* Test Item Value Reference Range Interpretation Comments Thyroid Stimulating Hormone (TSH) (test code = 43915-9) 0.865 0.350-4.940 [facility] CenterThyroid Stimulating Hormone (TSH) 2017-12-23 22:39:00* Test Item Value Reference Range Interpretation Comments Thyroid Stimulating Hormone (TSH) (test code = 81916-1) 0.865 0.350-4.940 [facility] CenterThyroid Stimulating Hormone (TSH) 2017-12-23 22:39:00* Test Item Value Reference Range Interpretation Comments Thyroid Stimulating Hormone (TSH) (test code = 81576-1) 0.865 0.350-4.940 [facility] CenterThyroid Stimulating Hormone (TSH) 2017-12-23 22:39:00* Test Item Value Reference Range Interpretation Comments Thyroid Stimulating Hormone (TSH) (test code = 31807-3) 0.865 0.350-4.940 [facility] CenterThyroid Stimulating Hormone (TSH) 2017-12-23 22:39:00* Test Item Value Reference Range Interpretation Comments Thyroid Stimulating Hormone (TSH) (test code = 20941-0) 0.865 0.350-4.940 [facility] CenterUrine NQS8484-95-51 22:23:00* Test Item Value Reference Range Interpretation Comments Urine WBC (test code = 5821-4) 0-5 0-5 [facility] CenterUrine ISE6212-69-37 22:23:00* Test Item Value Reference Range Interpretation Comments Urine RBC (test code = 48387-5) 0-5 0-5 [facility] CenterUrine Gnogjpfw2725-97-28 22:23:00* Test Item Value Reference Range Interpretation Comments Urine Bacteria (test code = 27734-4) RARE NONE [facility] CenterUrine Epithelial Mwuhl5454-50-62 22:23:00 * Test Item Value Reference Range Interpretation Comments Urine Epithelial Cells (test code = 38558-5) RARE NONE [facility] CenterUrine Fwpxa0915-99-88 22:04:00* Test Item Value Reference Range Interpretation Comments Urine Color (test code = 5778-6) YELLOW YELLOW [facility] CenterUrine Kcgnjru2411-50-79 22:04:00* Test Item Value Reference Range Interpretation Comments Urine Clarity (test code = 76872-3) CLEAR CLEAR [facility] Specific Dngvzpq3306-57-82 22:04:00 * Test Item Value Reference Range Interpretation Comments Urine Specific [place] (test code = 5811-5) 1.010 1.010-1.02 5 [facility] CenterUrine xT1944-03-35 22:04:00* Test Item Value Reference Range Interpretation Comments Urine pH (test code = 86375-9) 6 5-7 [facility] CenterUrine Leukocyte Olhwvuzr8668-59-98 22:04:00* Test Item Value Reference Range Interpretation Comments Urine Leukocyte Esterase (test code = 5799-2) NEGATIVE NEGATIVE [facility] CenterUrine Entgosm7930-18-03 22:04:00* Test Item Value Reference Range Interpretation Comments Urine Nitrite (test code = 50808-3) NEGATIVE NEGATIVE [facility] CenterUrine Okwcvim5148-72-56 22:04:00* Test Item Value Reference Range Interpretation Comments Urine Protein (test code = 5804-0) NEGATIVE NEGATIVE [facility] CenterUrine Glucose (UA)2017-12-23 22:04:00* Test Item Value Reference Range Interpretation Comments Urine Glucose (UA) (test code = 2349-9) 3+ NEGATIVE H [facility] CenterUrine Neesyci9479-14-61 22:04:00* Test Item Value Reference Range Interpretation Comments Urine Ketones (test code = 16722-4) NEGATIVE NEGATIVE [facility] CenterUrine Wyswkuhtsier0601-98-78 22:04:00* Test Item Value Reference Range Interpretation Comments Urine Urobilinogen (test code = 76379-6) 0.2 0.2-1 [facility] CenterUrine Xrjbjktay7452-74-75 22:04:00* Test Item Value Reference Range Interpretation Comments Urine Bilirubin (test code = 1978-6) NEGATIVE NEGATIVE [facility] CenterUrine Imjmv1534-53-36 22:04:00* Test Item Value Reference Range Interpretation Comments Urine Blood (test code = 02656-0) NEGATIVE NEGATIVE [facility] CenterMagnesium Ffstt2061-25-05 22:03:00* Test Item Value Reference Range Interpretation Comments Magnesium Level (test code = 35335-6) 1.8 1.3-2.1 [facility] CenterProthrombin Ndgw8274-41-17 21:58:00* Test Item Value Reference Range Interpretation Comments Prothrombin Time (test code = 5902-2) 13.6 11.9-14.5 [facility] CenterProthromb Time International Ratio 2017-12-23 21:58:00* Test Item Value Reference Range Interpretation Comments Prothromb Time International Ratio (test code = 6301-6) 1.13 Oral Anticoagulant Therapy INR Values:1. Low Intensity Therapy 1.5 - 2.02 . Moderate Intensity Therapy 2.0 - 3.03. High Intensity Therapy(1) 2.5 - 3. 54. High Intensity Therapy(2) 3.0 - 4.05. Panic Value INR > 5.0 [facility] CenterActivated Partial Thromboplast Time 2017-12-23 21:58:00* Test Item Value Reference Range Interpretation Comments Activated Partial Thromboplast Time (test code = 35697-9) 23.8 23.8-35.5 [facility] CenterBlood Xkkalax3481-44-30 00:04:00* Test Item Value Reference Range Interpretation Comments Blood Culture (test code = 33967579) NO GROWTH AFTER 5 DAYS, FINAL REPORT [facility] CenterBlood Gbybvvb9133-31-52 00:04:00* Test Item Value Reference Range Interpretation Comments Blood Culture (test code = 84963516) NO GROWTH AFTER 5 DAYS, FINAL REPORT [facility] Jiflapm3001-10-92 00:04:00* Test Item Value Reference Range Interpretation Comments Blood Culture (test code = 86035438) NO GROWTH AFTER 5 DAYS, FINAL REPORT [facility] Jdvgoas2984-74-58 00:04:00* Test Item Value Reference Range Interpretation Comments Blood Culture (test code = 46519779) NO GROWTH AFTER 5 DAYS, FINAL REPORT [facility] Ehxcrpq3960-65-26 00:04:00* Test Item Value Reference Range Interpretation Comments Blood Culture (test code = 44594408) NO GROWTH AFTER 5 DAYS, FINAL REPORT [facility] Ncxpjvt9788-65-09 00:04:00* Test Item Value Reference Range Interpretation Comments Blood Culture (test code = 15554652) NO GROWTH AFTER 5 DAYS, FINAL REPORT [facility]2018-03-27 00:04:00* Test Item Value Reference Range Interpretation Comments Blood Culture (test code = 49531850) NO GROWTH AFTER 5 DAYS, FINAL REPORT [facility]2018-03-27 00:04:00* Test Item Value Reference Range Interpretation Comments Blood Culture (test code = 38842952) NO GROWTH AFTER 5 DAYS, FINAL REPORT [facility] Wlxpkte3541-76-89 00:04:00* Test Item Value Reference Range Interpretation Comments Blood Culture (test code = 12363811) NO GROWTH AFTER 5 DAYS, [facility]PORT [facility] Vyoop9888-22-97 00:58:00* Test Item Value Reference Range Interpretation Comments Sodium Level (test code = 2951-2) 137 136-145 [facility] CenterPotassium Mjziu4244-18-93 00:58:00* Test Item Value Reference Range Interpretation Comments Potassium Level (test code = 2823-3) 4.1 3.5-5.1 [facility] CenterChloride Rzjwz7476-33-99 00:58:00* Test Item Value Reference Range Interpretation Comments Chloride Level (test code = 2075-0) 105 98-107 [facility] CenterCarbon Dioxide Qotfk4661-06-52 00:58:00* Test Item Value Reference Range Interpretation Comments Carbon Dioxide Level (test code = 2028-9) 21 22-29 L [facility] CenterAnion Pqf6489-62-55 00:58:00* Test Item Value Reference Range Interpretation Comments Anion Gap (test code = 56877-3) 15.1 8-16 [facility] CenterBlood Urea Milwxmsn3486-65-15 00:58:00* Test Item Value Reference Range Interpretation Comments Blood Urea Nitrogen (test code = 3094-0) 37 7-26 H [facility] CenterCreatinine2018-03-22 00:58:00* Test Item Value Reference Range Interpretation Comments Creatinine (test code = 2160-0) 1.54 0.57-1.11 H [facility] CenterBUN/Creatinine Ehtdf3470-49-88 00:58:00* Test Item Value Reference Range Interpretation Comments BUN/Creatinine Ratio (test code = 3097-3) 24 6-25 [facility] CenterEstimat Glomerular Filtration Rate 2017-10-12 00:58:00* Test Item Value Reference Range Interpretation Comments Estimat Glomerular Filtration Rate (test code = 42913-5) 34 >60 L Ranges were taken from the National Kidney Disease Education Program and the Jenise counts [facility] literature.Reference ranges:60 or greater: Cjnlme53-59 ( for 3 consecutive months): Chronic kidney disease 15 or less: Kidney failureCovenant Medical CenterGlucose Nymkl5573-84-50 00:58:00* Test Item Value Reference Range Interpretation Comments Glucose Level (test code = WSF0089) 286 74-118 H [facility] CenterCalcium Bxsfp2475-64-57 00:58:00* Test Item Value Reference Range Interpretation Comments Calcium Level (test code = 22883-8) 8.7 8.4-10.2 [facility] CenterMagnesium Npvhm2983-38-14 00:58:00* Test Item Value Reference Range Interpretation Comments Magnesium Level (test code = 27839-1) 1.6 1.3-2.1 [facility] CenterTotal Eqkwtkycl0055-68-11 00:58:00* Test Item Value Reference Range Interpretation Comments Total Bilirubin (test code = 1975-2) 0.3 0.2-1.2 [facility] CenterAspartate Amino Transf (AST/SGOT) 2017-10-12 00:58:00* Test Item Value Reference Range Interpretation Comments Aspartate Amino Transf (AST/SGOT) (test code = Aspartate Amino Transf (AST/SGOT)) 22 5-34 [facility] CenterAlanine Aminotransferase (ALT/SGPT) 2017-10-12 00:58:00* Test Item Value Reference Range Interpretation Comments Alanine Aminotransferase (ALT/SGPT) (test code = 1742-6) 24 0-55 [facility] CenterTotal Rdxbiwh7079-54-99 00:58:00* Test Item Value Reference Range Interpretation Comments Total Protein (test code = 2885-2) 6.5 6.5-8.1 [facility] CenterAlbumin2018-03-22 00:58:00* Test Item Value Reference Range Interpretation Comments Albumin (test code = 1751-7) 3.2 3.5-5.0 L [facility] CenterGlobulin2018-03-22 00:58:00* Test Item Value Reference Range Interpretation Comments Globulin (test code = 32334-4) 3.3 2.3-3.5 [facility] CenterAlbumin/Globulin Wlmln7485-35-84 00:58:00 * Test Item Value Reference Range Interpretation Comments Albumin/Globulin Ratio (test code = 1759-0) 1.0 0.8-2.0 [facility] CenterAlkaline Sqngcafcvze1815-47-92 00:58:00* Test Item Value Reference Range Interpretation Comments Alkaline Phosphatase (test code = 6768-6) 69 40-150 [facility] CenterB-Type Natriuretic Hpttqkm4479-66-00 00:58:00* Test Item Value Reference Range Interpretation Comments B-Type Natriuretic Peptide (test code = 96132-8) 46.4 0-100 [facility] CenterCreatine Efjhjp6338-90-69 00:58:00* Test Item Value Reference Range Interpretation Comments Creatine Kinase (test code = 2157-6) 86 29-168 [facility] CenterCreatine Kinase ZG7649-95-00 00:58:00* Test Item Value Reference Range Interpretation Comments Creatine Kinase MB (test code = 54213-7) 3.00 0-5.0 [facility] CenterTroponin I2216-00-36 00:58:00* Test Item Value Reference Range Interpretation Comments Troponin I (test code = ENZ2448) -0.001 0-0.300 [facility] Cpeol7759-24-18 00:58:00* Test Item Value Reference Range Interpretation Comments Sodium Level (test code = 2951-2) 137 136-145 [facility] CenterPotassium Fykml0706-06-89 00:58:00* Test Item Value Reference Range Interpretation Comments Potassium Level (test code = 2823-3) 4.1 3.5-5.1 [facility] CenterChloride Wpvgi2400-40-67 00:58:00* Test Item Value Reference Range Interpretation Comments Chloride Level (test code = 2075-0) 105 98-107 [facility] CenterCarbon Dioxide Rfkfo3155-43-64 00:58:00* Test Item Value Reference Range Interpretation Comments Carbon Dioxide Level (test code = 2028-9) 21 22-29 L [facility] CenterAnion Vjx7961-89-14 00:58:00* Test Item Value Reference Range Interpretation Comments Anion Gap (test code = 78975-4) 15.1 8-16 [facility] CenterBlood Urea Gulzhroq3611-99-48 00:58:00* Test Item Value Reference Range Interpretation Comments Blood Urea Nitrogen (test code = 3094-0) 37 7-26 H [facility] CenterCreatinine2018-03-22 00:58:00* Test Item Value Reference Range Interpretation Comments Creatinine (test code = 2160-0) 1.54 0.57-1.11 H [facility] CenterBUN/Creatinine Nqodm2461-41-87 00:58:00* Test Item Value Reference Range Interpretation Comments BUN/Creatinine Ratio (test code = 3097-3) 24 6-25 [facility] CenterEstimat Glomerular Filtration Rate 2017-10-12 00:58:00* Test Item Value Reference Range Interpretation Comments Estimat Glomerular Filtration Rate (test code = 99530-6) 34 >60 L Ranges were taken from the National Kidney Disease Education Program and the [facility] Kidney Foundation literature.Reference ranges:60 or greater: Sevxuj18-99 ( for 3 consecutive months): Chronic kidney disease 15 or less: Kidney failureCovenant Medical CenterGlucose Slzpk7341-11-66 00:58:00* Test Item Value Reference Range Interpretation Comments Glucose Level (test code = MAG0557) 286 74-118 H [facility] CenterCalcium Iiali2363-39-17 00:58:00* Test Item Value Reference Range Interpretation Comments Calcium Level (test code = 44527-2) 8.7 8.4-10.2 [facility] CenterMagnesium Apyup6379-89-31 00:58:00* Test Item Value Reference Range Interpretation Comments Magnesium Level (test code = 53609-9) 1.6 1.3-2.1 [facility] CenterTotal Msetqcjgz3913-87-11 00:58:00* Test Item Value Reference Range Interpretation Comments Total Bilirubin (test code = 1975-2) 0.3 0.2-1.2 [facility] CenterAspartate Amino Transf (AST/SGOT) 2017-10-12 00:58:00* Test Item Value Reference Range Interpretation Comments Aspartate Amino Transf (AST/SGOT) (test code = Aspartate Amino Transf (AST/SGOT)) 22 5-34 [facility] CenterAlanine Aminotransferase (ALT/SGPT) 2017-10-12 00:58:00* Test Item Value Reference Range Interpretation Comments Alanine Aminotransferase (ALT/SGPT) (test code = 1742-6) 24 0-55 [facility] CenterTotal Frtqprl9796-07-26 00:58:00* Test Item Value Reference Range Interpretation Comments Total Protein (test code = 2885-2) 6.5 6.5-8.1 [facility] CenterAlbumin2018-03-22 00:58:00* Test Item Value Reference Range Interpretation Comments Albumin (test code = 1751-7) 3.2 3.5-5.0 L [facility] CenterGlobulin2018-03-22 00:58:00* Test Item Value Reference Range Interpretation Comments Globulin (test code = 45545-6) 3.3 2.3-3.5 [facility] CenterAlbumin/Globulin Kojxw8194-48-30 00:58:00 * Test Item Value Reference Range Interpretation Comments Albumin/Globulin Ratio (test code = 1759-0) 1.0 0.8-2.0 [facility] CenterAlkaline Qkmeythvvdg2404-50-41 00:58:00* Test Item Value Reference Range Interpretation Comments Alkaline Phosphatase (test code = 6768-6) 69 40-150 [facility] CenterB-Type Natriuretic Hbbbyvn9387-66-86 00:58:00* Test Item Value Reference Range Interpretation Comments B-Type Natriuretic Peptide (test code = 34251-6) 46.4 0-100 [facility] CenterCreatine Chkiev6232-90-04 00:58:00* Test Item Value Reference Range Interpretation Comments Creatine Kinase (test code = 2157-6) 86 29-168 [facility] CenterCreatine Kinase GR7808-25-36 00:58:00* Test Item Value Reference Range Interpretation Comments Creatine Kinase MB (test code = 34367-2) 3.00 0-5.0 [facility] CenterTroponin O8590-70-11 00:58:00* Test Item Value Reference Range Interpretation Comments Troponin I (test code = CVD8832) -0.001 0-0.300 [facility]odium Nkcgf3979-54-39 00:58:00* Test Item Value Reference Range Interpretation Comments Sodium Level (test code = 2951-2) 137 136-145 [facility] CenterPotassium Olqrx9416-35-31 00:58:00* Test Item Value Reference Range Interpretation Comments Potassium Level (test code = 2823-3) 4.1 3.5-5.1 [facility] CenterChloride Ulmut6673-21-26 00:58:00* Test Item Value Reference Range Interpretation Comments Chloride Level (test code = 2075-0) 105 98-107 [facility] CenterCarbon Dioxide Lukxj7408-10-81 00:58:00* Test Item Value Reference Range Interpretation Comments Carbon Dioxide Level (test code = 2028-9) 21 22-29 L [facility] CenterAnion Bxb0371-21-65 00:58:00* Test Item Value Reference Range Interpretation Comments Anion Gap (test code = 64395-8) 15.1 8-16 [facility] CenterBlood Urea Itynxiaf1435-47-92 00:58:00* Test Item Value Reference Range Interpretation Comments Blood Urea Nitrogen (test code = 3094-0) 37 7-26 H [facility] CenterCreatinine2018-03-22 00:58:00* Test Item Value Reference Range Interpretation Comments Creatinine (test code = 2160-0) 1.54 0.57-1.11 H [facility] CenterBUN/Creatinine Goeuh1405-78-48 00:58:00* Test Item Value Reference Range Interpretation Comments BUN/Creatinine Ratio (test code = 3097-3) 24 6-25 [facility] CenterEstimat Glomerular Filtration Rate 2017-10-12 00:58:00* Test Item Value Reference Range Interpretation Comments Estimat Glomerular Filtration Rate (test code = 97048-1) 34 >60 L Ranges were taken from the National Kidney Disease Education Program and the Jenise counts [facility] Kid[facility] Foundation literature.Reference ranges:60 or greater: Lefybu67-32 ( for 3 consecutive months): Chronic kidney disease 15 or less: Kidney failureCovenant Medical CenterGlucose Tunyi7615-16-90 00:58:00* Test Item Value Reference Range Interpretation Comments Glucose Level (test code = BIO6478) 286 74-118 H [facility] CenterCalcium Irfhf5926-16-40 00:58:00* Test Item Value Reference Range Interpretation Comments Calcium Level (test code = 38714-0) 8.7 8.4-10.2 [facility] CenterMagnesium Csmuv8865-00-11 00:58:00* Test Item Value Reference Range Interpretation Comments Magnesium Level (test code = 43898-0) 1.6 1.3-2.1 [facility] CenterTotal Jipbsrnni7784-24-20 00:58:00* Test Item Value Reference Range Interpretation Comments Total Bilirubin (test code = 1975-2) 0.3 0.2-1.2 [facility] CenterAspartate Amino Transf (AST/SGOT) 2017-10-12 00:58:00* Test Item Value Reference Range Interpretation Comments Aspartate Amino Transf (AST/SGOT) (test code = Aspartate Amino Transf (AST/SGOT)) 22 5-34 [facility] CenterAlanine Aminotransferase (ALT/SGPT) 2017-10-12 00:58:00* Test Item Value Reference Range Interpretation Comments Alanine Aminotransferase (ALT/SGPT) (test code = 1742-6) 24 0-55 [facility] CenterTotal Qahgwyv9130-60-24 00:58:00* Test Item Value Reference Range Interpretation Comments Total Protein (test code = 2885-2) 6.5 6.5-8.1 [facility] CenterAlbumin2018-03-22 00:58:00* Test Item Value Reference Range Interpretation Comments Albumin (test code = 1751-7) 3.2 3.5-5.0 L [facility] CenterGlobulin2018-03-22 00:58:00* Test Item Value Reference Range Interpretation Comments Globulin (test code = 53424-8) 3.3 2.3-3.5 [facility] CenterAlbumin/Globulin Zmkee2753-34-74 00:58:00 * Test Item Value Reference Range Interpretation Comments Albumin/Globulin Ratio (test code = 1759-0) 1.0 0.8-2.0 [facility] CenterAlkaline Ddwuofhvzuh7922-87-03 00:58:00* Test Item Value Reference Range Interpretation Comments Alkaline Phosphatase (test code = 6768-6) 69 40-150 [facility] CenterB-Type Natriuretic Mhemvah7646-28-89 00:58:00* Test Item Value Reference Range Interpretation Comments B-Type Natriuretic Peptide (test code = 29346-8) 46.4 0-100 [facility] CenterCreatine Ehixcb3086-68-92 00:58:00* Test Item Value Reference Range Interpretation Comments Creatine Kinase (test code = 2157-6) 86 29-168 [facility] CenterCreatine Kinase NN2313-88-92 00:58:00* Test Item Value Reference Range Interpretation Comments Creatine Kinase MB (test code = 09150-2) 3.00 0-5.0 [facility] CenterTroponin M6927-48-72 00:58:00* Test Item Value Reference Range Interpretation Comments Troponin I (test code = DGX0602) -0.001 0-0.300 [facility] CenterLactic Acid Nykdf5729-53-36 00:40:00* Test Item Value Reference Range Interpretation Comments Lactic Acid Level (test code = Lactic Acid Level) 14.6 4.5- 19.8 [facility] CenterLactic Acid Nnvxr9783-77-30 00:40:00* Test Item Value Reference Range Interpretation Comments Lactic Acid Level (test code = Lactic Acid Level) 14.6 4.5- 19.8 [facility] CenterLactic Acid Dnuqx9506-96-33 00:40:00* Test Item Value Reference Range Interpretation Comments Lactic Acid Level (test code = Lactic Acid Level) 14.6 4.5- 19.8 [facility] CenterLactic Acid Elcnv4344-37-81 00:40:00* Test Item Value Reference Range Interpretation Comments Lactic Acid Level (test code = Lactic Acid Level) 14.6 4.5- 19.8 [facility] CenterLactic Acid Ylcjv8224-61-96 00:40:00* Test Item Value Reference Range Interpretation Comments Lactic Acid Level (test code = Lactic Acid Level) 14.6 4.5- 19.8 [facility] CenterLactic Acid Pjnyg4747-14-07 00:40:00* Test Item Value Reference Range Interpretation Comments Lactic Acid Level (test code = Lactic Acid Level) 14.6 4.5- 19.8 [facility] CenterLactic Acid Ohzeu8581-11-47 00:40:00* Test Item Value Reference Range Interpretation Comments Lactic Acid Level (test code = Lactic Acid Level) 14.6 4.5- 19.8 [facility] CenterLactic Acid Qrtuj4037-09-75 00:40:00* Test Item Value Reference Range Interpretation Comments Lactic Acid Level (test code = Lactic Acid Level) 14.6 4.5- 19.8 [facility] CenterUrine QOT8127-22-28 00:38:00* Test Item Value Reference Range Interpretation Comments Urine WBC (test code = 5821-4) 0-5 0-5 [facility] CenterUrine MQJ4320-00-81 00:38:00* Test Item Value Reference Range Interpretation Comments Urine RBC (test code = 65594-2) 0-5 0-5 [facility] CenterUrine Yglwebyt8106-62-09 00:38:00* Test Item Value Reference Range Interpretation Comments Urine Bacteria (test code = 98738-1) RARE NONE [facility] CenterUrine Epithelial Jgbwn7878-80-15 00:38:00 * Test Item Value Reference Range Interpretation Comments Urine Epithelial Cells (test code = 98383-8) FEW NONE [facility] CenterUrine IIQ0760-39-44 00:38:00* Test Item Value Reference Range Interpretation Comments Urine WBC (test code = 5821-4) 0-5 0-5 [facility] CenterUrine DXL2319-30-97 00:38:00* Test Item Value Reference Range Interpretation Comments Urine RBC (test code = 46648-8) 0-5 0-5 [facility] CenterUrine Ailmnrbd7415-36-05 00:38:00* Test Item Value Reference Range Interpretation Comments Urine Bacteria (test code = 29233-5) RARE NONE [facility] CenterUrine Epithelial Agzib7520-58-03 00:38:00 * Test Item Value Reference Range Interpretation Comments Urine Epithelial Cells (test code = 36570-2) FEW NONE [facility] CenterUrine XMH9917-59-26 00:38:00* Test Item Value Reference Range Interpretation Comments Urine WBC (test code = 5821-4) 0-5 0-5 [facility] CenterUrine VUG8116-39-74 00:38:00* Test Item Value Reference Range Interpretation Comments Urine RBC (test code = 04926-8) 0-5 0-5 [facility] CenterUrine Tvnzaspp1420-65-92 00:38:00* Test Item Value Reference Range Interpretation Comments Urine Bacteria (test code = 77072-4) RARE NONE [facility] CenterUrine Epithelial Eolrh4882-20-22 00:38:00 * Test Item Value Reference Range Interpretation Comments Urine Epithelial Cells (test code = 34830-4) FEW NONE [facility] CenterProthrombin Qgto2017-29-71 00:31:00* Test Item Value Reference Range Interpretation Comments Prothrombin Time (test code = 5902-2) 12.5 11.9-14.5 [facility] CenterProthromb Time International Ratio 2017-10-12 00:31:00* Test Item Value Reference Range Interpretation Comments Prothromb Time International Ratio (test code = 6301-6) 1.01 Oral Anticoagulant Therapy INR Values:1. Low Intensity Therapy 1.5 - 2.02 . Moderate Intensity Therapy 2.0 - 3.03. High Intensity Therapy(1) 2.5 - 3. 54. High Intensity Therapy(2) 3.0 - 4.05. Panic Value INR > 5.0 [facility] CenterActivated Partial Thromboplast Time 2017-10-12 00:31:00* Test Item Value Reference Range Interpretation Comments Activated Partial Thromboplast Time (test code = 83591-2) 17.7 23.8-35.5 L [facility] CenterProthrombin Itra9752-67-25 00:31:00* Test Item Value Reference Range Interpretation Comments Prothrombin Time (test code = 5902-2) 12.5 11.9-14.5 [facility] CenterProthromb Time International Ratio 2017-10-12 00:31:00* Test Item Value Reference Range Interpretation Comments Prothromb Time International Ratio (test code = 6301-6) 1.01 Oral Anticoagulant Therapy INR Values:1. Low Intensity Therapy 1.5 - 2.02 . Moderate Intensity Therapy 2.0 - 3.03. High Intensity Therapy(1) 2.5 - 3. 54. High Intensity Therapy(2) 3.0 - 4.05. Panic Value INR > 5.0 [facility] CenterActivated Partial Thromboplast Time 2017-10-12 00:31:00* Test Item Value Reference Range Interpretation Comments Activated Partial Thromboplast Time (test code = 20359-4) 17.7 23.8-35.5 L [facility] CenterProthrombin Dsoj5920-49-54 00:31:00* Test Item Value Reference Range Interpretation Comments Prothrombin Time (test code = 5902-2) 12.5 11.9-14.5 [facility] CenterProthromb Time International Ratio 2017-10-12 00:31:00* Test Item Value Reference Range Interpretation Comments Prothromb Time International Ratio (test code = 6301-6) 1.01 Oral Anticoagulant Therapy INR Values:1. Low Intensity Therapy 1.5 - 2.02 . Moderate Intensity Therapy 2.0 - 3.03. High Intensity Therapy(1) 2.5 - 3. 54. High Intensity Therapy(2) 3.0 - 4.05. Panic Value INR > 5.0 [facility] CenterActivated Partial Thromboplast Time 2017-10-12 00:31:00* Test Item Value Reference Range Interpretation Comments Activated Partial Thromboplast Time (test code = 57269-4) 17.7 23.8-35.5 L [facility] CenterWhite Blood Mttxv4281-95-54 00:19:00* Test Item Value Reference Range Interpretation Comments White Blood Count (test code = 6690-2) 6.20 4.8-10.8 [facility] CenterRed Blood Zewfl9894-46-19 00:19:00* Test Item Value Reference Range Interpretation Comments Red Blood Count (test code = 789-8) 4.11 3.6-5.1 [facility] CenterHemoglobin2018-03-22 00:19:00* Test Item Value Reference Range Interpretation Comments Hemoglobin (test code = 85517-9) 10.7 12.0-16.0 L [facility] CenterHematocrit2018-03-22 00:19:00* Test Item Value Reference Range Interpretation Comments Hematocrit (test code = 4544-3) 35.7 34.2-44.1 [facility] CenterMean Corpuscular Iwjsll9876-56-06 00:19:00* Test Item Value Reference Range Interpretation Comments Mean Corpuscular Volume (test code = 787-2) 86.9 81-99 [facility] CenterMean Corpuscular Gjadihbgra6763-61-65 00:19:00* Test Item Value Reference Range Interpretation Comments Mean Corpuscular Hemoglobin (test code = 785-6) 26.0 28-32 L [facility] CenterMean Corpuscular Hemoglobin Concent 2017-10-12 00:19:00* Test Item Value Reference Range Interpretation Comments Mean Corpuscular Hemoglobin Concent (test code = 786-4) 30.0 31-35 L [facility] CenterRed Cell Distribution Apyer6891-38-72 00:19:00* Test Item Value Reference Range Interpretation Comments Red Cell Distribution Width (test code = 88849-2) 15.1 11.7 -14.4 H [facility] CenterPlatelet Npvnw7880-97-15 00:19:00* Test Item Value Reference Range Interpretation Comments Platelet Count (test code = 777-3) 186 140-360 [facility] CenterNeutrophils (%) (Auto)2017-10-12 00:19:00 * Test Item Value Reference Range Interpretation Comments Neutrophils (%) (Auto) (test code = 56999-4) 65.3 38.7-80.0 [facility] CenterLymphocytes (%) (Auto)2017-10-12 00:19:00 * Test Item Value Reference Range Interpretation Comments Lymphocytes (%) (Auto) (test code = 736-9) 24.5 18.0-39.1 [facility] CenterMonocytes (%) (Auto)2017-10-12 00:19:00* Test Item Value Reference Range Interpretation Comments Monocytes (%) (Auto) (test code = 5905-5) 5.5 4.4-11.3 [facility] CenterEosinophils (%) (Auto)2017-10-12 00:19:00 * Test Item Value Reference Range Interpretation Comments Eosinophils (%) (Auto) (test code = 713-8) 2.7 0.0-6.0 [facility] CenterBasophils (%) (Auto)2017-10-12 00:19:00* Test Item Value Reference Range Interpretation Comments Basophils (%) (Auto) (test code = 706-2) 1.0 0.0-1.0 [facility] CenterIM GRANULOCYTES %2017-10-12 00:19:00* Test Item Value Reference Range Interpretation Comments IM GRANULOCYTES % (test code = IM GRANULOCYTES %) 1.0 0.0- 1.0 [facility] CenterNeutrophils # (Auto)2017-10-12 00:19:00* Test Item Value Reference Range Interpretation Comments Neutrophils # (Auto) (test code = 751-8) 4.1 2.1-6.9 [facility] CenterLymphocytes # (Auto)2017-10-12 00:19:00* Test Item Value Reference Range Interpretation Comments Lymphocytes # (Auto) (test code = 59959-0) 1.5 1.0-3.2 [facility] CenterMonocytes # (Auto)2017-10-12 00:19:00* Test Item Value Reference Range Interpretation Comments Monocytes # (Auto) (test code = 742-7) 0.3 0.2-0.8 [facility] CenterEosinophils # (Auto)2017-10-12 00:19:00* Test Item Value Reference Range Interpretation Comments Eosinophils # (Auto) (test code = 711-2) 0.2 0.0-0.4 [facility] CenterBasophils # (Auto)2017-10-12 00:19:00* Test Item Value Reference Range Interpretation Comments Basophils # (Auto) (test code = 704-7) 0.1 0.0-0.1 [facility] CenterAbsolute Immature Granulocyte (auto 2017-10-12 00:19:00* Test Item Value Reference Range Interpretation Comments Absolute Immature Granulocyte (auto (joseph t code = Absolute Immature Granulocyte (auto) 0.06 0-0.1 [facility] CenterUrine Ipujc6641-89-58 00:19:00* Test Item Value Reference Range Interpretation Comments Urine Color (test code = 5778-6) YELLOW YELLOW [facility] CenterUrine Qkbnvqc3365-14-90 00:19:00* Test Item Value Reference Range Interpretation Comments Urine Clarity (test code = 59058-3) CLEAR CLEAR [facility] Specific Sfricbu8705-49-22 00:19:00 * Test Item Value Reference Range Interpretation Comments Urine Specific [place] (test code = 5811-5) 1.020 1.010-1.02 5 [facility] CenterUrine jI4758-32-16 00:19:00* Test Item Value Reference Range Interpretation Comments Urine pH (test code = 77749-9) 5 5-7 [facility] Leukocyte Lymdguzx4755-20-87 00:19:00* Test Item Value Reference Range Interpretation Comments Urine Leukocyte Esterase (test code = 5799-2) NEGATIVE NEGATIVE [facility] Lvboijf0888-11-79 00:19:00* Test Item Value Reference Range Interpretation Comments Urine Nitrite (test code = 53668-2) NEGATIVE NEGATIVE [facility] Ainmbnw8745-68-13 00:19:00* Test Item Value Reference Range Interpretation Comments Urine Protein (test code = 5804-0) NEGATIVE NEGATIVE [facility] CenterUrine Glucose (UA)2017-10-12 00:19:00* Test Item Value Reference Range Interpretation Comments Urine Glucose (UA) (test code = 2349-9) 3+ NEGATIVE H [facility] Stqcgvk9630-41-00 00:19:00* Test Item Value Reference Range Interpretation Comments Urine Ketones (test code = 95533-7) NEGATIVE NEGATIVE [facility] Msqeyzupsygy3185-08-05 00:19:00* Test Item Value Reference Range Interpretation Comments Urine Urobilinogen (test code = 81727-3) 0.2 0.2-1 [facility] Xpuxrcxch8158-57-06 00:19:00* Test Item Value Reference Range Interpretation Comments Urine Bilirubin (test code = 1978-6) NEGATIVE NEGATIVE [facility] CenterUrine Iwmta6207-69-82 00:19:00* Test Item Value Reference Range Interpretation Comments Urine Blood (test code = 49265-4) 1+ NEGATIVE H [facility] CenterWhite Blood Srirr6505-35-30 00:19:00* Test Item Value Reference Range Interpretation Comments White Blood Count (test code = 6690-2) 6.20 4.8-10.8 [facility] CenterRed Blood Ktgsz6274-49-19 00:19:00* Test Item Value Reference Range Interpretation Comments Red Blood Count (test code = 789-8) 4.11 3.6-5.1 [facility] CenterHemoglobin2018-03-22 00:19:00* Test Item Value Reference Range Interpretation Comments Hemoglobin (test code = 49454-9) 10.7 12.0-16.0 L [facility] CenterHematocrit2018-03-22 00:19:00* Test Item Value Reference Range Interpretation Comments Hematocrit (test code = 4544-3) 35.7 34.2-44.1 [facility] CenterMean Corpuscular Maeoqt0807-48-58 00:19:00* Test Item Value Reference Range Interpretation Comments Mean Corpuscular Volume (test code = 787-2) 86.9 81-99 [facility] CenterMean Corpuscular Gfeabsvrmc7636-01-20 00:19:00* Test Item Value Reference Range Interpretation Comments Mean Corpuscular Hemoglobin (test code = 785-6) 26.0 28-32 L [facility] CenterMean Corpuscular Hemoglobin Concent 2017-10-12 00:19:00* Test Item Value Reference Range Interpretation Comments Mean Corpuscular Hemoglobin Concent (test code = 786-4) 30.0 31-35 L [facility] CenterRed Cell Distribution Zbmhd6522-29-33 00:19:00* Test Item Value Reference Range Interpretation Comments Red Cell Distribution Width (test code = 31353-3) 15.1 11.7 -14.4 H [facility] CenterPlatelet Ixwqt6273-32-87 00:19:00* Test Item Value Reference Range Interpretation Comments Platelet Count (test code = 777-3) 186 140-360 [facility] CenterNeutrophils (%) (Auto)2017-10-12 00:19:00 * Test Item Value Reference Range Interpretation Comments Neutrophils (%) (Auto) (test code = 75411-1) 65.3 38.7-80.0 [facility] CenterLymphocytes (%) (Auto)2017-10-12 00:19:00 * Test Item Value Reference Range Interpretation Comments Lymphocytes (%) (Auto) (test code = 736-9) 24.5 18.0-39.1 [facility] CenterMonocytes (%) (Auto)2017-10-12 00:19:00* Test Item Value Reference Range Interpretation Comments Monocytes (%) (Auto) (test code = 5905-5) 5.5 4.4-11.3 [facility] CenterEosinophils (%) (Auto)2017-10-12 00:19:00 * Test Item Value Reference Range Interpretation Comments Eosinophils (%) (Auto) (test code = 713-8) 2.7 0.0-6.0 [facility] CenterBasophils (%) (Auto)2017-10-12 00:19:00* Test Item Value Reference Range Interpretation Comments Basophils (%) (Auto) (test code = 706-2) 1.0 0.0-1.0 [facility] CenterIM GRANULOCYTES %2017-10-12 00:19:00* Test Item Value Reference Range Interpretation Comments IM GRANULOCYTES % (test code = IM GRANULOCYTES %) 1.0 0.0- 1.0 [facility] CenterNeutrophils # (Auto)2017-10-12 00:19:00* Test Item Value Reference Range Interpretation Comments Neutrophils # (Auto) (test code = 751-8) 4.1 2.1-6.9 [facility] CenterLymphocytes # (Auto)2017-10-12 00:19:00* Test Item Value Reference Range Interpretation Comments Lymphocytes # (Auto) (test code = 91402-3) 1.5 1.0-3.2 [facility] CenterMonocytes # (Auto)2017-10-12 00:19:00* Test Item Value Reference Range Interpretation Comments Monocytes # (Auto) (test code = 742-7) 0.3 0.2-0.8 [facility] CenterEosinophils # (Auto)2017-10-12 00:19:00* Test Item Value Reference Range Interpretation Comments Eosinophils # (Auto) (test code = 711-2) 0.2 0.0-0.4 [facility] CenterBasophils # (Auto)2017-10-12 00:19:00* Test Item Value Reference Range Interpretation Comments Basophils # (Auto) (test code = 704-7) 0.1 0.0-0.1 [facility] CenterAbsolute Immature Granulocyte (auto 2017-10-12 00:19:00* Test Item Value Reference Range Interpretation Comments Absolute Immature Granulocyte (auto (joseph t code = Absolute Immature Granulocyte (auto) 0.06 0-0.1 [facility] Jtcfx8363-65-13 00:19:00* Test Item Value Reference Range Interpretation Comments Urine Color (test code = 5778-6) YELLOW YELLOW [facility] Fkdfkss7657-86-22 00:19:00* Test Item Value Reference Range Interpretation Comments Urine Clarity (test code = 62126-0) CLEAR CLEAR [facility] Specific Yatldab6186-91-08 00:19:00 * Test Item Value Reference Range Interpretation Comments Urine Specific [place] (test code = 5811-5) 1.020 1.010-1.02 5 [facility] kY5647-87-29 00:19:00* Test Item Value Reference Range Interpretation Comments Urine pH (test code = 46206-1) 5 5-7 [facility] Leukocyte Wyohkrvg6164-86-19 00:19:00* Test Item Value Reference Range Interpretation Comments Urine Leukocyte Esterase (test code = 5799-2) NEGATIVE NEGATIVE [facility] Lgvjrvn4373-90-12 00:19:00* Test Item Value Reference Range Interpretation Comments Urine Nitrite (test code = 80943-7) NEGATIVE NEGATIVE [facility] Qsihfkc7943-03-36 00:19:00* Test Item Value Reference Range Interpretation Comments Urine Protein (test code = 5804-0) NEGATIVE NEGATIVE [facility] Glucose (UA)2017-10-12 00:19:00* Test Item Value Reference Range Interpretation Comments Urine Glucose (UA) (test code = 2349-9) 3+ NEGATIVE H [facility] CenterU[facility] Bowaxvd3836-61-27 00:19:00* Test Item Value Reference Range Interpretation Comments Urine Ketones (test code = 24612-6) NEGATIVE NEGATIVE [facility] Hhpjzmdzojjp3447-59-05 00:19:00* Test Item Value Reference Range Interpretation Comments Urine Urobilinogen (test code = 29089-7) 0.2 0.2-1 [facility] Snmcjomot2088-80-69 00:19:00* Test Item Value Reference Range Interpretation Comments Urine Bilirubin (test code = 1978-6) NEGATIVE NEGATIVE [facility] Xurju8567-37-30 00:19:00* Test Item Value Reference Range Interpretation Comments Urine Blood (test code = 29639-0) 1+ NEGATIVE H [facility] CenterWhite Blood Spvsk5255-57-37 00:19:00* Test Item Value Reference Range Interpretation Comments White Blood Count (test code = 6690-2) 6.20 4.8-10.8 [facility] Center[facility] Blood Ffytb0509-20-21 00:19:00* Test Item Value Reference Range Interpretation Comments Red Blood Count (test code = 789-8) 4.11 3.6-5.1 [facility] CenterHemoglobin2018-03-22 00:19:00* Test Item Value Reference Range Interpretation Comments Hemoglobin (test code = 34204-2) 10.7 12.0-16.0 L [facility] CenterHematocrit2018-03-22 00:19:00* Test Item Value Reference Range Interpretation Comments Hematocrit (test code = 4544-3) 35.7 34.2-44.1 [facility] CenterMean Corpuscular Exxalk0382-82-70 00:19:00* Test Item Value Reference Range Interpretation Comments Mean Corpuscular Volume (test code = 787-2) 86.9 81-99 [facility] CenterMean Corpuscular Ghfmvutndw0712-31-92 00:19:00* Test Item Value Reference Range Interpretation Comments Mean Corpuscular Hemoglobin (test code = 785-6) 26.0 28-32 L [facility] CenterMean Corpuscular Hemoglobin Concent 2017-10-12 00:19:00* Test Item Value Reference Range Interpretation Comments Mean Corpuscular Hemoglobin Concent (test code = 786-4) 30.0 31-35 L [facility] CenterRed Cell Distribution Fuvuh1157-43-87 00:19:00* Test Item Value Reference Range Interpretation Comments Red Cell Distribution Width (test code = 97620-8) 15.1 11.7 -14.4 H [facility] CenterPlatelet Eyypk9370-19-88 00:19:00* Test Item Value Reference Range Interpretation Comments Platelet Count (test code = 777-3) 186 140-360 [facility] CenterNeutrophils (%) (Auto)2017-10-12 00:19:00 * Test Item Value Reference Range Interpretation Comments Neutrophils (%) (Auto) (test code = 87718-7) 65.3 38.7-80.0 [facility] CenterLymphocytes (%) (Auto)2017-10-12 00:19:00 * Test Item Value Reference Range Interpretation Comments Lymphocytes (%) (Auto) (test code = 736-9) 24.5 18.0-39.1 [facility] CenterMonocytes (%) (Auto)2017-10-12 00:19:00* Test Item Value Reference Range Interpretation Comments Monocytes (%) (Auto) (test code = 5905-5) 5.5 4.4-11.3 [facility] CenterEosinophils (%) (Auto)2017-10-12 00:19:00 * Test Item Value Reference Range Interpretation Comments Eosinophils (%) (Auto) (test code = 713-8) 2.7 0.0-6.0 [facility] CenterBasophils (%) (Auto)2017-10-12 00:19:00* Test Item Value Reference Range Interpretation Comments Basophils (%) (Auto) (test code = 706-2) 1.0 0.0-1.0 [facility] CenterIM GRANULOCYTES %2017-10-12 00:19:00* Test Item Value Reference Range Interpretation Comments IM GRANULOCYTES % (test code = IM GRANULOCYTES %) 1.0 0.0- 1.0 [facility] CenterNeutrophils # (Auto)2017-10-12 00:19:00* Test Item Value Reference Range Interpretation Comments Neutrophils # (Auto) (test code = 751-8) 4.1 2.1-6.9 [facility] CenterLymphocytes # (Auto)2017-10-12 00:19:00* Test Item Value Reference Range Interpretation Comments Lymphocytes # (Auto) (test code = 82983-2) 1.5 1.0-3.2 [facility] CenterMonocytes # (Auto)2017-10-12 00:19:00* Test Item Value Reference Range Interpretation Comments Monocytes # (Auto) (test code = 742-7) 0.3 0.2-0.8 [facility] CenterEosinophils # (Auto)2017-10-12 00:19:00* Test Item Value Reference Range Interpretation Comments Eosinophils # (Auto) (test code = 711-2) 0.2 0.0-0.4 [facility] CenterBasophils # (Auto)2017-10-12 00:19:00* Test Item Value Reference Range Interpretation Comments Basophils # (Auto) (test code = 704-7) 0.1 0.0-0.1 [facility] CenterAbsolute Immature Granulocyte (auto 2017-10-12 00:19:00* Test Item Value Reference Range Interpretation Comments Absolute Immature Granulocyte (auto (joseph t code = Absolute Immature Granulocyte (auto) 0.06 0-0.1 [facility] CenterUrine Lqlpq7794-56-86 00:19:00* Test Item Value Reference Range Interpretation Comments Urine Color (test code = 5778-6) YELLOW YELLOW [facility] CenterUrine Lfjddde7344-19-88 00:19:00* Test Item Value Reference Range Interpretation Comments Urine Clarity (test code = 36328-1) CLEAR CLEAR [facility] CenterU[facility] Specific Ibonkzd3007-36-14 00:19:00 * Test Item Value Reference Range Interpretation Comments Urine Specific [place] (test code = 5811-5) 1.020 1.010-1.02 5 [facility] CenterU[facility] fG9014-37-16 00:19:00* Test Item Value Reference Range Interpretation Comments Urine pH (test code = 71887-7) 5 5-7 [facility] CenterU[facility] Leukocyte Twufpiqg7593-09-99 00:19:00* Test Item Value Reference Range Interpretation Comments Urine Leukocyte Esterase (test code = 5799-2) NEGATIVE NEGATIVE [facility] Afginui4932-93-86 00:19:00* Test Item Value Reference Range Interpretation Comments Urine Nitrite (test code = 08491-5) NEGATIVE NEGATIVE [facility] CenterU[facility] Lwgjzec8675-73-75 00:19:00* Test Item Value Reference Range Interpretation Comments Urine Protein (test code = 5804-0) NEGATIVE NEGATIVE [facility] CenterUrine Glucose (UA)2017-10-12 00:19:00* Test Item Value Reference Range Interpretation Comments Urine Glucose (UA) (test code = 2349-9) 3+ NEGATIVE H [facility] CenterUrine Efyigpg4396-00-83 00:19:00* Test Item Value Reference Range Interpretation Comments Urine Ketones (test code = 29052-2) NEGATIVE NEGATIVE [facility] CenterUrine Oravxlmiarth1293-13-51 00:19:00* Test Item Value Reference Range Interpretation Comments Urine Urobilinogen (test code = 95017-9) 0.2 0.2-1 [facility] CenterUrine Cxvhldqji0211-39-37 00:19:00* Test Item Value Reference Range Interpretation Comments Urine Bilirubin (test code = 1978-6) NEGATIVE NEGATIVE [facility] CenterU[facility] Rlrod4582-42-44 00:19:00* Test Item Value Reference Range Interpretation Comments Urine Blood (test code = 94837-8) 1+ [facility] Gkyhtho0766-21-33 11:00:00* Test Item Value Reference Range Interpretation Comments Blood Culture (test code = 80995233) NO GROWTH AFTER 5 DAYS, FINAL REPORT [facility] Ipzvpps8955-71-07 11:00:00* Test Item Value Reference Range Interpretation Comments Blood Culture (test code = 53374524) NO GROWTH AFTER 5 DAYS, FINAL REPORT [facility] Hudinuq3858-62-44 12:28:00* Test Item Value Reference Range Interpretation Comments Bedside Glucose (test code = 60369-7) 113 70-120 Meter ID: [id number] [facility] Glucose 2017-09-29 12:28:00* Test Item Value Reference Range Interpretation Comments Bedside Glucose (test code = 53762-2) 113 70-120 Meter ID: [id number] [facility] Glucose 2017-09-29 12:28:00* Test Item Value Reference Range Interpretation Comments Bedside Glucose (test code = 68964-6) 113 70-120 Meter ID: [id number] [facility] Glucose 2017-09-29 12:28:00* Test Item Value Reference Range Interpretation Comments Bedside Glucose (test code = 04160-7) 113 70-120 Meter ID: [id number] [facility] Glucose 2017-09-29 12:28:00* Test Item Value Reference Range Interpretation Comments Bedside Glucose (test code = 31117-0) 113 70-120 Meter ID: [id number] Army Medical Centerodium Level 2017-09-29 08:38:00* Test Item Value Reference Range Interpretation Comments Sodium Level (test code = 2951-2) 138 136-145 [facility] CenterPotassium Jrvmq1857-98-79 08:38:00* Test Item Value Reference Range Interpretation Comments Potassium Level (test code = 2823-3) 3.7 3.5-5.1 [facility] CenterChloride Sijnb0214-49-66 08:38:00* Test Item Value Reference Range Interpretation Comments Chloride Level (test code = 2075-0) 94 98-107 L [facility] CenterCarbon Dioxide Cjlvu0421-61-28 08:38:00* Test Item Value Reference Range Interpretation Comments Carbon Dioxide Level (test code = 2028-9) 29 22-29 [facility] CenterAnion Pol8265-24-08 08:38:00* Test Item Value Reference Range Interpretation Comments Anion Gap (test code = 06293-8) 18.7 8-16 H [facility] CenterBlood Urea Iiyurqev7189-24-24 08:38:00* Test Item Value Reference Range Interpretation Comments Blood Urea Nitrogen (test code = 3094-0) 25 7-26 [facility] CenterCreatinine2018 08:38:00* Test Item Value Reference Range Interpretation Comments Creatinine (test code = 2160-0) 1.00 0.57-1.11 [facility] CenterBUN/Creatinine Didag5870-95-77 08:38:00* Test Item Value Reference Range Interpretation Comments BUN/Creatinine Ratio (test code = 3097-3) 25 6-25 [facility] CenterEstimat Glomerular Filtration Rate 2017-09-29 08:38:00* Test Item Value Reference Range Interpretation Comments Estimat Glomerular Filtration Rate (test code = 12636-2) 56 >60 L Ranges were taken from the National Kidney Disease Education Program and the Jenise counts [facility] literature.Reference ranges:60 or greater: Ovtwuv93-44 ( for 3 consecutive months): Chronic kidney disease 15 or less: Kidney failureCovenant Medical CenterGlucose Onmuv0834-11-11 08:38:00* Test Item Value Reference Range Interpretation Comments Glucose Level (test code = HLO5133) 290 74-118 H [facility] CenterCalcium Uohnd6834-89-08 08:38:00* Test Item Value Reference Range Interpretation Comments Calcium Level (test code = 88981-5) 9.4 8.4-10.2 [facility] Centerodium Tqhkm2639-94-18 08:38:00* Test Item Value Reference Range Interpretation Comments Sodium Level (test code = 2951-2) 138 136-145 [facility] CenterPotassium Qwoua2367-82-08 08:38:00* Test Item Value Reference Range Interpretation Comments Potassium Level (test code = 2823-3) 3.7 3.5-5.1 [facility] CenterChloride Rjfiu0650-72-61 08:38:00* Test Item Value Reference Range Interpretation Comments Chloride Level (test code = 2075-0) 94 98-107 L [facility] CenterCarbon Dioxide Saeiw2225-01-18 08:38:00* Test Item Value Reference Range Interpretation Comments Carbon Dioxide Level (test code = 2028-9) 29 22-29 [facility] CenterAnion Spb5775-88-44 08:38:00* Test Item Value Reference Range Interpretation Comments Anion Gap (test code = 35689-7) 18.7 8-16 H [facility] CenterBlood Urea Wzahfcuh6352-83-57 08:38:00* Test Item Value Reference Range Interpretation Comments Blood Urea Nitrogen (test code = 3094-0) 25 7-26 [facility] CenterCreatinine2018 08:38:00* Test Item Value Reference Range Interpretation Comments Creatinine (test code = 2160-0) 1.00 0.57-1.11 [facility] CenterBUN/Creatinine Lqexn1384-89-61 08:38:00* Test Item Value Reference Range Interpretation Comments BUN/Creatinine Ratio (test code = 3097-3) 25 6-25 [facility] CenterEstimat Glomerular Filtration Rate 2017-09-29 08:38:00* Test Item Value Reference Range Interpretation Comments Estimat Glomerular Filtration Rate (test code = 58017-7) 56 >60 L Ranges were taken from the National Kidney Disease Education Program and the [place]ise ional Kidney Foundation literature.Reference ranges:60 or greater: Kdkeld21-11 ( for 3 consecutive months): Chronic kidney disease 15 or less: Kidney failureCovenant Medical CenterGlucose Rflca1396-02-56 08:38:00* Test Item Value Reference Range Interpretation Comments Glucose Level (test code = LKP4876) 290 74-118 H [facility] CenterCalcium Brffw4648-48-53 08:38:00* Test Item Value Reference Range Interpretation Comments Calcium Level (test code = 09563-7) 9.4 8.4-10.2 [facility] CenterArterial Blood jY2794-20-45 13:49:00* Test Item Value Reference Range Interpretation Comments Arterial Blood pH (test code = 2744-1) 7.46 7.31-7.41 H WAS CALLED TO RUN A BLOOD GAS FOR A PT ON ROOM AIR LAYING ON THE OYSTER HARVESTER TABLE [facility] CenterArterial Blood Partial Pressure CO2 2017-09-28 13:49:00* Test Item Value Reference Range Interpretation Comments Arterial Blood Partial Pressure CO2 (test code = 2018-8) 46 41-51 [facility] CenterArterial Blood Partial Pressure O2 2017-09-28 13:49:00* Test Item Value Reference Range Interpretation Comments Arterial Blood Partial Pressure O2 (test code = 2018-8) 30 80-105 LL Results called/hand delivered to DR CLINTON LLAMAS at 1328 on 09/28/17 by Mckayla reyna. RB [place].[facility] CenterArterial Blood HCO3 2017-09-28 13:49:00* Test Item Value Reference Range Interpretation Comments Arterial Blood HCO3 (test code = 1960-4) 33 23-28 H [facility] CenterArterial Blood Base Ljbaui4251-63-12 13:49:00* Test Item Value Reference Range Interpretation Comments Arterial Blood Base Excess (test code = 1925-7) 9.0 -2-3 H [facility] CenterArterial Blood Oxygen Saturation 2017-09-28 13:49:00* Test Item Value Reference Range Interpretation Comments Arterial Blood Oxygen Saturation (test code = 2708-6) 60.0 95-98 L [facility] CenterArterial Blood jV4134-12-61 13:49:00* Test Item Value Reference Range Interpretation Comments Arterial Blood pH (test code = 2744-1) 7.46 7.31-7.41 H WAS CALLED TO RUN A BLOOD GAS FOR A PT ON ROOM AIR LAYING ON THE [place] HARVESTER TABLE [facility] CenterArterial Blood Partial Pressure CO2 2017-09-28 13:49:00* Test Item Value Reference Range Interpretation Comments Arterial Blood Partial Pressure CO2 (test code = 2019-02) 46 41-51 [facility] CenterArterial Blood Partial Pressure O2 2017-09-28 13:49:00* Test Item Value Reference Range Interpretation Comments Arterial Blood Partial Pressure O2 (test code = 2019-02) 30 80-105 LL Results called/hand delivered to DR CLINTON LLAMAS at 1328 on 09/28/17 by Mckayla reyna. RB [place].[facility] CenterArterial Blood HCO3 2017-09-28 13:49:00* Test Item Value Reference Range Interpretation Comments Arterial Blood HCO3 (test code = 1960-4) 33 23-28 H [facility] CenterArterial Blood Base Bdbyjo3423-25-52 13:49:00* Test Item Value Reference Range Interpretation Comments Arterial Blood Base Excess (test code = 1925-7) 9.0 -2-3 H [facility] CenterArterial Blood Oxygen Saturation 2017-09-28 13:49:00* Test Item Value Reference Range Interpretation Comments Arterial Blood Oxygen Saturation (test code = 2708-6) 60.0 95-98 L [facility] CenterArterpromedica [facility] Blood fU6683-85-68 13:49:00* Test Item Value Reference Range Interpretation Comments Arterial Blood pH (test code = 2744-1) 7.46 7.31-7.41 H WAS CALLED TO RUN A BLOOD GAS FOR A PT ON ROOM AIR LAYING ON THE [place] HARVESTER TABLE [facility] CenterArterial Blood Partial Pressure CO2 2017-09-28 13:49:00* Test Item Value Reference Range Interpretation Comments Arterial Blood Partial Pressure CO2 (test code = 2019-8) 46 41-51 [facility] CenterArterial Blood Partial Pressure O2 2017-09-28 13:49:00* Test Item Value Reference Range Interpretation Comments Arterial Blood Partial Pressure O2 (test code = 2018-8) 30 80-105 LL Results called/hand delivered to DR CLINTON LLAMAS at 1328 on 09/28/17 by Mckayla reyna. RB [place].[facility] CenterArterial Blood HCO3 2017-09-28 13:49:00* Test Item Value Reference Range Interpretation Comments Arterial Blood HCO3 (test code = 1960-4) 33 23-28 H [facility] CenterArterial Blood Base Fkxein1726-60-24 13:49:00* Test Item Value Reference Range Interpretation Comments Arterial Blood Base Excess (test code = 1925-7) 9.0 -2-3 H [facility] CenterArterial Blood Oxygen Saturation 2017-09-28 13:49:00* Test Item Value Reference Range Interpretation Comments Arterial Blood Oxygen Saturation (test code = 2708-6) 60.0 95-98 L [facility] Blood tB9790-20-24 13:49:00* Test Item Value Reference Range Interpretation Comments Arterial Blood pH (test code = 2744-1) 7.46 7.31-7.41 H WAS CALLED TO RUN A BLOOD GAS FOR A PT ON ROOM AIR LAYING ON THE [place] HARVESTER TABLE [facility] CenterArterial Blood Partial Pressure CO2 2017-09-28 13:49:00* Test Item Value Reference Range Interpretation Comments Arterial Blood Partial Pressure CO2 (test code = 2018-8) 46 41-51 [facility] CenterArterial Blood Partial Pressure O2 2017-09-28 13:49:00* Test Item Value Reference Range Interpretation Comments Arterial Blood Partial Pressure O2 (test code = 2019-8) 30 80-105 LL Results called/hand delivered to DR CLINTON LLAMAS at 1328 on 09/28/17 by Mckayla reyna. RB [place].[facility] CenterArterial Blood HCO3 2017-09-28 13:49:00* Test Item Value Reference Range Interpretation Comments Arterial Blood HCO3 (test code = 1960-4) 33 23-28 H [facility] CenterArterial Blood Base Orqvfu4047-67-37 13:49:00* Test Item Value Reference Range Interpretation Comments Arterial Blood Base Excess (test code = 1925-7) 9.0 -2-3 H [facility] CenterArterial Blood Oxygen Saturation 2017-09-28 13:49:00* Test Item Value Reference Range Interpretation Comments Arterial Blood Oxygen Saturation (test code = 2708-6) 60.0 95-98 L [facility] Blood [id number] 13:49:00* Test Item Value Reference Range Interpretation Comments Arterial Blood pH (test code = 2744-1) 7.46 7.31-7.41 H WAS CALLED TO RUN A BLOOD GAS FOR A PT ON ROOM AIR LAYING ON THE [place] HARVESTER TABLE [facility] CenterArterial Blood Partial Pressure CO2 2017-09-28 13:49:00* Test Item Value Reference Range Interpretation Comments Arterial Blood Partial Pressure CO2 (test code = 2019-02) 46 41-51 [facility] CenterArterial Blood Partial Pressure O2 2017-09-28 13:49:00* Test Item Value Reference Range Interpretation Comments Arterial Blood Partial Pressure O2 (test code = 2019-02) 30 80-105 LL Results called/hand delivered to DR CLINTON LLAMAS at 1328 on 09/28/17 by Mckayla reyna. RB [place].[facility] CenterArterial Blood HCO3 2017-09-28 13:49:00* Test Item Value Reference Range Interpretation Comments Arterial Blood HCO3 (test code = 1960-4) 33 23-28 H [facility] CenterArterial Blood Base Zcukoc0282-94-51 13:49:00* Test Item Value Reference Range Interpretation Comments Arterial Blood Base Excess (test code = 1925-7) 9.0 -2-3 H [facility] CenterArterial Blood Oxygen Saturation 2017-09-28 13:49:00* Test Item Value Reference Range Interpretation Comments Arterial Blood Oxygen Saturation (test code = 2708-6) 60.0 95-98 L [facility] Blood mX9069-99-77 13:49:00* Test Item Value Reference Range Interpretation Comments Arterial Blood pH (test code = 2744-1) 7.46 7.31-7.41 H WAS CALLED TO RUN A BLOOD GAS FOR A PT ON ROOM AIR LAYING ON THE [place] HARVESTER TABLE [facility] CenterAr[facility]ial Blood Partial Pressure CO2 2017-09-28 13:49:00* Test Item Value Reference Range Interpretation Comments Arterial Blood Partial Pressure CO2 (test code = 2018-8) 46 41-51 [facility] CenterAr[facility]ial Blood Partial Pressure O2 2017-09-28 13:49:00* Test Item Value Reference Range Interpretation Comments Arterial Blood Partial Pressure O2 (test code = 2018-8) 30 80-105 LL Results called/hand delivered to DR CLINTON LLAMAS at 1328 on 09/28/17 by Mkcayla reyna. RB [place].[facility] CenterArterial Blood HCO3 2017-09-28 13:49:00* Test Item Value Reference Range Interpretation Comments Arterial Blood HCO3 (test code = 1960-4) 33 23-28 H [facility] Blood Base Cfcjfu6210-88-00 13:49:00* Test Item Value Reference Range Interpretation Comments Arterial Blood Base Excess (test code = 1925-7) 9.0 -2-3 H [facility] CenterArterial Blood Oxygen Saturation 2017-09-28 13:49:00* Test Item Value Reference Range Interpretation Comments Arterial Blood Oxygen Saturation (test code = 2708-6) 60.0 95-98 L [facility] Blood aA8508-03-14 13:49:00* Test Item Value Reference Range Interpretation Comments Arterial Blood pH (test code = 2744-1) 7.46 7.31-7.41 H WAS CALLED TO RUN A BLOOD GAS FOR A PT ON ROOM AIR LAYING ON THE [place] HARVESTER TABLE [facility] CenterAr[facility]ial Blood Partial Pressure CO2 2017-09-28 13:49:00* Test Item Value Reference Range Interpretation Comments Arterial Blood Partial Pressure CO2 (test code = 2018-8) 46 41-51 [facility] CenterArterial Blood Partial Pressure O2 2017-09-28 13:49:00* Test Item Value Reference Range Interpretation Comments Arterial Blood Partial Pressure O2 (test code = 2019-8) 30 80-105 LL Results called/hand delivered to DR CLINTON LLAMAS at 1328 on 09/28/17 by Mckayla reyna. RB [place].[facility] CenterAr[facility]ial Blood HCO3 2017-09-28 13:49:00* Test Item Value Reference Range Interpretation Comments Arterial Blood HCO3 (test code = 1960-4) 33 23-28 H [facility] CenterAr[facility]ial Blood Base Ejrhtq1660-07-91 13:49:00* Test Item Value Reference Range Interpretation Comments Arterial Blood Base Excess (test code = 1925-7) 9.0 -2-3 H [facility] CenterArterial Blood Oxygen Saturation 2017-09-28 13:49:00* Test Item Value Reference Range Interpretation Comments Arterial Blood Oxygen Saturation (test code = 2708-6) 60.0 95-98 L [facility] CenterArterial Blood pY5308-39-78 13:49:00* Test Item Value Reference Range Interpretation Comments Arterial Blood pH (test code = 2744-1) 7.46 7.31-7.41 H WAS CALLED TO RUN A BLOOD GAS FOR A PT ON ROOM AIR LAYING ON THE [place] HARVESTER TABLE [facility] CenterAr[facility]ial Blood Partial Pressure CO2 2017-09-28 13:49:00* Test Item Value Reference Range Interpretation Comments Arterial Blood Partial Pressure CO2 (test code = 2018-8) 46 41-51 [facility] CenterAr[facility]ial Blood Partial Pressure O2 2017-09-28 13:49:00* Test Item Value Reference Range Interpretation Comments Arterial Blood Partial Pressure O2 (test code = 2018-8) 30 80-105 LL Results called/hand delivered to DR CLINTON LLAMAS at 1328 on 09/28/17 by Mckayla reyna. RB [place].[facility] CenterAr[facility]ial Blood HCO3 2017-09-28 13:49:00* Test Item Value Reference Range Interpretation Comments Arterial Blood HCO3 (test code = 1960-4) 33 23-28 H [facility] CenterAr[facility]ial Blood Base Ykvptq0594-91-72 13:49:00* Test Item Value Reference Range Interpretation Comments Arterial Blood Base Excess (test code = 1925-7) 9.0 -2-3 H [facility] Center[facility] O[facility] Saturation 2017-09-28 13:49:00* Test Item Value Reference Range Interpretation Comments Arterial Blood Oxygen Saturation (test code = 2708-6) 60.0 95-98 L [facility] Blood [id number] 13:49:00* Test Item Value Reference Range Interpretation Comments Arterial Blood pH (test code = 2744-1) 7.46 7.31-7.41 H WAS CALLED TO RUN A BLOOD GAS FOR A PT ON ROOM AIR LAYING ON THE OYSTER HARVESTER TABLE [facility] Partial Pressure CO2 2017-09-28 13:49:00* Test Item Value Reference Range Interpretation Comments Arterial Blood Partial Pressure CO2 (test code = 2019-02) 46 41-51 [facility] Pressure O2 2017-09-28 13:49:00* Test Item Value Reference Range Interpretation Comments Arterial Blood Partial Pressure O2 (test code = 2019-02) 30 80-105 LL Results called/hand delivered to DR CLINTON LLAMAS at 1328 on 09/28/17 by Mckayla reyna. [place].[facility] HCO3 2017-09-28 13:49:00* Test Item Value Reference Range Interpretation Comments Arterial Blood HCO3 (test code = 1960-4) 33 23-28 H [facility] CenterAr[facility] Base [id number] 13:49:00* Test Item Value Reference Range Interpretation Comments Arterial Blood Base Excess (test code = 1925-7) 9.0 -2-3 H [facility] Center[facility] Oxygen Saturation 2017-09-28 13:49:00* Test Item Value Reference Range Interpretation Comments Arterial Blood Oxygen Saturation (test code = 2708-6) 60.0 95-98 L [facility] Blood [id number] 13:49:00* Test Item Value Reference Range Interpretation Comments Arterial Blood pH (test code = 2744-1) 7.46 7.31-7.41 H WAS CALLED TO RUN A BLOOD GAS FOR A PT ON ROOM AIR LAYING ON THE OYSTER HARVESTER TABLE [facility] Partial Pressure CO2 2017-09-28 13:49:00* Test Item Value Reference Range Interpretation Comments Arterial Blood Partial Pressure CO2 (test code = 2019-02) 46 41-51 [facility]Ar[facility] Partial Pressure O2 2017-09-28 13:49:00* Test Item Value Reference Range Interpretation Comments Arterial Blood Partial Pressure O2 (test code = 2018-8) 30 80-105 LL Results called/hand delivered to DR CLINTON LLAMAS at 1328 on 09/28/17 by Mckayla reyna. [place].[facility] HCO3 2017-09-28 13:49:00* Test Item Value Reference Range Interpretation Comments Arterial Blood HCO3 (test code = 1960-4) 33 23-28 H [facility] CenterAr[facility] Base [id number] 13:49:00* Test Item Value Reference Range Interpretation Comments Arterial Blood Base Excess (test code = 1925-7) 9.0 -2-3 H [facility] CenterAr[facility] Oxygen Saturation 2017-09-28 13:49:00* Test Item Value Reference Range Interpretation Comments Arterial Blood Oxygen Saturation (test code = 2708-6) 60.0 95-98 L [facility] Blood [id number] 13:49:00* Test Item Value Reference Range Interpretation Comments Arterial Blood pH (test code = 2744-1) 7.46 7.31-7.41 H WAS CALLED TO RUN A BLOOD GAS FOR A PT ON ROOM AIR LAYING ON THE OYSTER HARVESTER TABLE [facility] Partial Pressure CO2 2017-09-28 13:49:00* Test Item Value Reference Range Interpretation Comments Arterial Blood Partial Pressure CO2 (test code = 2018-8) 46 41-51 [facility] CenterAr[facility] Partial Pressure O2 2017-09-28 13:49:00* Test Item Value Reference Range Interpretation Comments Arterial Blood Partial Pressure O2 (test code = 2019-8) 30 80-105 LL Results called/hand delivered to DR CLINTON LLAMAS at 1328 on 09/28/17 by Mckayla reyna. [place].[facility] HCO3 2017-09-28 13:49:00* Test Item Value Reference Range Interpretation Comments Arterial Blood HCO3 (test code = 1960-4) 33 23-28 H [facility] CenterAr[facility] Blood Base Pnupnx5779-46-33 13:49:00* Test Item Value Reference Range Interpretation Comments Arterial Blood Base Excess (test code = 1925-7) 9.0 -2-3 H [facility] CenterAr[facility] Blood Oxygen Saturation 2017-09-28 13:49:00* Test Item Value Reference Range Interpretation Comments Arterial Blood Oxygen Saturation (test code = 2708-6) 60.0 95-98 L [facility] CenterBlood Pegsfju5915-85-32 11:00:00* Test Item Value Reference Range Interpretation Comments Blood Culture (test code = 05730553) NO GROWTH AFTER 72 HOURS [facility] CenterCreatine Kinase [id number] 07:21:00* Test Item Value Reference Range Interpretation Comments Creatine Kinase MB (test code = 29943-2) 1.40 0-5.0 [facility] CenterTroponin [id number] 07:21:00* Test Item Value Reference Range Interpretation Comments Troponin I (test code = DSL7222) -0.001 0-0.300 [facility] CenterCreatine Kinase [id number] 07:21:00* Test Item Value Reference Range Interpretation Comments Creatine Kinase MB (test code = 90466-5) 1.40 0-5.0 [facility] CenterTroponin [id number] 07:21:00* Test Item Value Reference Range Interpretation Comments Troponin I (test code = RAA1518) -0.001 0-0.300 [facility] CenterCreatine Qisgwu1487-74-93 07:19:00* Test Item Value Reference Range Interpretation Comments Creatine Kinase (test code = 2157-6) 67 168 [facility] CenterCreatine Vgwvhk2669-74-54 07:19:00* Test Item Value Reference Range Interpretation Comments Creatine Kinase (test code = 2157-6) 67 168 [facility] CenterWhite Blood Sgjto5083-23-34 07:00:00* Test Item Value Reference Range Interpretation Comments White Blood Count (test code = 6690-2) 8.36 4.8-10.8 [facility] CenterRed Blood Grhpu9828-52-96 07:00:00* Test Item Value Reference Range Interpretation Comments Red Blood Count (test code = 789-8) 4.13 3.6-5.1 [facility] CenterHemoglobin2018-03-06 07:00:00* Test Item Value Reference Range Interpretation Comments Hemoglobin (test code = 24124-6) 10.9 12.0-16.0 L [facility] CenterHematocrit2018-03-06 07:00:00* Test Item Value Reference Range Interpretation Comments Hematocrit (test code = 4544-3) 35.0 34.2-44.1 [facility] CenterMean Corpuscular Pzdmnd1182-23-54 07:00:00* Test Item Value Reference Range Interpretation Comments Mean Corpuscular Volume (test code = 787-2) 84.7 81-99 [facility] CenterMean Corpuscular Prqsinisyu4861-43-13 07:00:00* Test Item Value Reference Range Interpretation Comments Mean Corpuscular Hemoglobin (test code = 785-6) 26.4 28-32 L [facility] CenterMean Corpuscular Hemoglobin Concent 2017-09-26 07:00:00* Test Item Value Reference Range Interpretation Comments Mean Corpuscular Hemoglobin Concent (test code = 786-4) 31.1 31-35 [facility] CenterRed Cell Distribution Ombta1331-32-59 07:00:00* Test Item Value Reference Range Interpretation Comments Red Cell Distribution Width (test code = 98149-7) 15.1 11.7 -14.4 H [facility] CenterPlatelet Pslgz1704-78-23 07:00:00* Test Item Value Reference Range Interpretation Comments Platelet Count (test code = 777-3) 223 140-360 [facility] CenterNeutrophils (%) (Auto)2017-09-26 07:00:00 * Test Item Value Reference Range Interpretation Comments Neutrophils (%) (Auto) (test code = 06229-2) 80.9 38.7-80.0 H [facility] CenterLymphocytes (%) (Auto)2017-09-26 07:00:00 * Test Item Value Reference Range Interpretation Comments Lymphocytes (%) (Auto) (test code = 736-9) 12.3 18.0-39.1 L [facility] CenterMonocytes (%) (Auto)2017-09-26 07:00:00* Test Item Value Reference Range Interpretation Comments Monocytes (%) (Auto) (test code = 5905-5) 5.1 4.4-11.3 [facility] CenterEosinophils (%) (Auto)2017-09-26 07:00:00 * Test Item Value Reference Range Interpretation Comments Eosinophils (%) (Auto) (test code = 713-8) 0.0 0.0-6.0 [facility] CenterBasophils (%) (Auto)2017-09-26 07:00:00* Test Item Value Reference Range Interpretation Comments Basophils (%) (Auto) (test code = 706-2) 0.4 0.0-1.0 [facility] CenterIM GRANULOCYTES %2017-09-26 07:00:00* Test Item Value Reference Range Interpretation Comments IM GRANULOCYTES % (test code = IM GRANULOCYTES %) 1.3 0.0- 1.0 H [facility] CenterNeutrophils # (Auto)2017-09-26 07:00:00* Test Item Value Reference Range Interpretation Comments Neutrophils # (Auto) (test code = 751-8) 6.8 2.1-6.9 [facility] CenterLymphocytes # (Auto)2017-09-26 07:00:00* Test Item Value Reference Range Interpretation Comments Lymphocytes # (Auto) (test code = 60723-6) 1.0 1.0-3.2 [facility] CenterMonocytes # (Auto)2017-09-26 07:00:00* Test Item Value Reference Range Interpretation Comments Monocytes # (Auto) (test code = 742-7) 0.4 0.2-0.8 [facility] CenterEosinophils # (Auto)2017-09-26 07:00:00* Test Item Value Reference Range Interpretation Comments Eosinophils # (Auto) (test code = 711-2) 0.0 0.0-0.4 [facility] CenterBasophils # (Auto)2017-09-26 07:00:00* Test Item Value Reference Range Interpretation Comments Basophils # (Auto) (test code = 704-7) 0.0 0.0-0.1 [facility] CenterAbsolute Immature Granulocyte (auto 2017-09-26 07:00:00* Test Item Value Reference Range Interpretation Comments Absolute Immature Granulocyte (auto (joseph t code = Absolute Immature Granulocyte (auto) 0.11 0-0.1 H [facility] CenterWhite Blood Ojxfw7023-74-27 07:00:00* Test Item Value Reference Range Interpretation Comments White Blood Count (test code = 6690-2) 8.36 4.8-10.8 [facility] CenterRed Blood Jtcpa4815-75-64 07:00:00* Test Item Value Reference Range Interpretation Comments Red Blood Count (test code = 789-8) 4.13 3.6-5.1 [facility] CenterHemoglobin2018-03-06 07:00:00* Test Item Value Reference Range Interpretation Comments Hemoglobin (test code = 52932-7) 10.9 12.0-16.0 L [facility] CenterHematocrit2018-03-06 07:00:00* Test Item Value Reference Range Interpretation Comments Hematocrit (test code = 4544-3) 35.0 34.2-44.1 [facility] CenterMean Corpuscular Spikwq8787-37-91 07:00:00* Test Item Value Reference Range Interpretation Comments Mean Corpuscular Volume (test code = 787-2) 84.7 81-99 [facility] CenterMean Corpuscular Oiqpkbemmk1917-63-91 07:00:00* Test Item Value Reference Range Interpretation Comments Mean Corpuscular Hemoglobin (test code = 785-6) 26.4 28-32 L [facility] CenterMean Corpuscular Hemoglobin Concent 2017-09-26 07:00:00* Test Item Value Reference Range Interpretation Comments Mean Corpuscular Hemoglobin Concent (test code = 786-4) 31.1 31-35 [facility] CenterRed Cell Distribution Srwok4809-20-39 07:00:00* Test Item Value Reference Range Interpretation Comments Red Cell Distribution Width (test code = 46222-7) 15.1 11.7 -14.4 H [facility] CenterPlatelet Ggxjf4856-04-25 07:00:00* Test Item Value Reference Range Interpretation Comments Platelet Count (test code = 777-3) 223 140-360 [facility] CenterNeutrophils (%) (Auto)2017-09-26 07:00:00 * Test Item Value Reference Range Interpretation Comments Neutrophils (%) (Auto) (test code = 81199-1) 80.9 38.7-80.0 H [facility] CenterLymphocytes (%) (Auto)2017-09-26 07:00:00 * Test Item Value Reference Range Interpretation Comments Lymphocytes (%) (Auto) (test code = 736-9) 12.3 18.0-39.1 L [facility] CenterMonocytes (%) (Auto)2017-09-26 07:00:00* Test Item Value Reference Range Interpretation Comments Monocytes (%) (Auto) (test code = 5905-5) 5.1 4.4-11.3 [facility] CenterEosinophils (%) (Auto)2017-09-26 07:00:00 * Test Item Value Reference Range Interpretation Comments Eosinophils (%) (Auto) (test code = 713-8) 0.0 0.0-6.0 [facility] CenterBasophils (%) (Auto)2017-09-26 07:00:00* Test Item Value Reference Range Interpretation Comments Basophils (%) (Auto) (test code = 706-2) 0.4 0.0-1.0 [facility] CenterIM GRANULOCYTES %2017-09-26 07:00:00* Test Item Value Reference Range Interpretation Comments IM GRANULOCYTES % (test code = IM GRANULOCYTES %) 1.3 0.0- 1.0 H [facility] CenterNeutrophils # (Auto)2017-09-26 07:00:00* Test Item Value Reference Range Interpretation Comments Neutrophils # (Auto) (test code = 751-8) 6.8 2.1-6.9 [facility] CenterLymphocytes # (Auto)2017-09-26 07:00:00* Test Item Value Reference Range Interpretation Comments Lymphocytes # (Auto) (test code = 71771-0) 1.0 1.0-3.2 [facility] CenterMonocytes # (Auto)2017-09-26 07:00:00* Test Item Value Reference Range Interpretation Comments Monocytes # (Auto) (test code = 742-7) 0.4 0.2-0.8 [facility] CenterEosinophils # (Auto)2017-09-26 07:00:00* Test Item Value Reference Range Interpretation Comments Eosinophils # (Auto) (test code = 711-2) 0.0 0.0-0.4 [facility] CenterBasophils # (Auto)2017-09-26 07:00:00* Test Item Value Reference Range Interpretation Comments Basophils # (Auto) (test code = 704-7) 0.0 0.0-0.1 [facility] CenterAbsolute Immature Granulocyte (auto 2017-09-26 07:00:00* Test Item Value Reference Range Interpretation Comments Absolute Immature Granulocyte (auto (joseph t code = Absolute Immature Granulocyte (auto) 0.11 0-0.1 H [facility] CenterProthrombin Ubsf4664-58-78 11:58:00* Test Item Value Reference Range Interpretation Comments Prothrombin Time (test code = 5902-2) 13.2 11.9-14.5 [facility] CenterProthromb Time International Ratio 2017-09-25 11:58:00* Test Item Value Reference Range Interpretation Comments Prothromb Time International Ratio (test code = 6301-6) 1.08 Oral Anticoagulant Therapy INR Values:1. Low Intensity Therapy 1.5 - 2.02 . Moderate Intensity Therapy 2.0 - 3.03. High Intensity Therapy(1) 2.5 - 3. 54. High Intensity Therapy(2) 3.0 - 4.05. Panic Value INR > 5.0 [facility] CenterActivated Partial Thromboplast Time 2017-09-25 11:58:00* Test Item Value Reference Range Interpretation Comments Activated Partial Thromboplast Time (test code = 27141-0) 23.7 23.8-35.5 L [facility] CenterB-Type Natriuretic Ywidrbz4210-02-00 11:58:00* Test Item Value Reference Range Interpretation Comments B-Type Natriuretic Peptide (test code = 14235-2) 77.1 0-100 [facility] CenterProthrombin Frkj3858-09-59 11:58:00* Test Item Value Reference Range Interpretation Comments Prothrombin Time (test code = 5902-2) 13.2 11.9-14.5 [facility] CenterProthromb Time International Ratio 2017-09-25 11:58:00* Test Item Value Reference Range Interpretation Comments Prothromb Time International Ratio (test code = 6301-6) 1.08 Oral Anticoagulant Therapy INR Values:1. Low Intensity Therapy 1.5 - 2.02 . Moderate Intensity Therapy 2.0 - 3.03. High Intensity Therapy(1) 2.5 - 3. 54. High Intensity Therapy(2) 3.0 - 4.05. Panic Value INR > 5.0 [facility] CenterActivated Partial Thromboplast Time 2017-09-25 11:58:00* Test Item Value Reference Range Interpretation Comments Activated Partial Thromboplast Time (test code = 11313-8) 23.7 23.8-35.5 L [facility] CenterB-Type Natriuretic Wrpybrf7977-98-45 11:58:00* Test Item Value Reference Range Interpretation Comments B-Type Natriuretic Peptide (test code = 17356-8) 77.1 0-100 [facility] CenterInfluenza Virus Types A,B Antigen 2017-09-25 11:57:00* Test Item Value Reference Range Interpretation Comments Influenza Virus Types A,B Antigen (test code = 04141-9) NEGATIVE NEGATIVE [facility] CenterInfluenza Virus Types A,B Antigen 2017-09-25 11:57:00* Test Item Value Reference Range Interpretation Comments Influenza Virus Types A,B Antigen (test code = 27619-4) NEGATIVE NEGATIVE [facility] CenterInfluenza Virus Types A,B Antigen 2017-09-25 11:57:00* Test Item Value Reference Range Interpretation Comments Influenza Virus Types A,B Antigen (test code = 56217-5) NEGATIVE NEGATIVE [facility] CenterInfluenza Virus Types A,B Antigen 2017-09-25 11:57:00* Test Item Value Reference Range Interpretation Comments Influenza Virus Types A,B Antigen (test code = 82730-4) NEGATIVE NEGATIVE [facility] CenterInfluenza Virus Types A,B Antigen 2017-09-25 11:57:00* Test Item Value Reference Range Interpretation Comments Influenza Virus Types A,B Antigen (test code = 49388-2) NEGATIVE NEGATIVE [facility] CenterInfluenza Virus Types A,B Antigen 2017-09-25 11:57:00* Test Item Value Reference Range Interpretation Comments Influenza Virus Types A,B Antigen (test code = 04932-0) NEGATIVE NEGATIVE [facility] CenterInfluenza Virus Types A,B Antigen 2017-09-25 11:57:00* Test Item Value Reference Range Interpretation Comments Influenza Virus Types A,B Antigen (test code = 95870-1) NEGATIVE NEGATIVE [facility] CenterInfluenza Virus Types A,B Antigen 2017-09-25 11:57:00* Test Item Value Reference Range Interpretation Comments Influenza Virus Types A,B Antigen (test code = 19664-3) NEGATIVE NEGATIVE [facility] CenterInfluenza Virus Types A,B Antigen 2017-09-25 11:57:00* Test Item Value Reference Range Interpretation Comments Influenza Virus Types A,B Antigen (test code = 58840-4) NEGATIVE NEGATIVE [facility] CenterInfluenza Virus Types A,B Antigen 2017-09-25 11:57:00* Test Item Value Reference Range Interpretation Comments Influenza Virus Types A,B Antigen (test code = 80689-0) NEGATIVE NEGATIVE [facility] CenterInfluenza Virus Types A,B Antigen 2017-09-25 11:57:00* Test Item Value Reference Range Interpretation Comments Influenza Virus Types A,B Antigen (test code = 38626-8) NEGATIVE NEGATIVE [facility] CenterUrine [id number] 11:55:00* Test Item Value Reference Range Interpretation Comments Urine WBC (test code = 5821-4) NONE 0-5 [facility] CenterU[facility] [id number] 11:55:00* Test Item Value Reference Range Interpretation Comments Urine RBC (test code = 58583-8) NONE 0-5 [facility] CenterU[facility] Jqovqkfp9623-75-10 11:55:00* Test Item Value Reference Range Interpretation Comments Urine Bacteria (test code = 93527-0) NONE NONE [facility] CenterUrine Epithelial Teebc0980-84-64 11:55:00 * Test Item Value Reference Range Interpretation Comments Urine Epithelial Cells (test code = 55922-2) RARE NONE [facility] AHO1019-08-32 11:55:00* Test Item Value Reference Range Interpretation Comments Urine WBC (test code = 5821-4) NONE 0-5 [facility] RWO9875-74-62 11:55:00* Test Item Value Reference Range Interpretation Comments Urine RBC (test code = 78424-0) NONE 0-5 [facility] Hbbdinpj5690-11-86 11:55:00* Test Item Value Reference Range Interpretation Comments Urine Bacteria (test code = 47407-7) NONE NONE [facility] CenterUrine Epithelial Otvxm1344-80-44 11:55:00 * Test Item Value Reference Range Interpretation Comments Urine Epithelial Cells (test code = 96080-7) RARE NONE [facility] CenterThyroid Stimulating Hormone (TSH) 2017-09-25 11:50:00* Test Item Value Reference Range Interpretation Comments Thyroid Stimulating Hormone (TSH) (test code = 51121-2) 0.515 0.350-4.940 [facility] CenterThyroid Stimulating Hormone (TSH) 2017-09-25 11:50:00* Test Item Value Reference Range Interpretation Comments Thyroid Stimulating Hormone (TSH) (test code = 45350-0) 0.515 0.350-4.940 [facility] CenterThyroid Stimulating Hormone (TSH) 2017-09-25 11:50:00* Test Item Value Reference Range Interpretation Comments Thyroid Stimulating Hormone (TSH) (test code = 40486-2) 0.515 0.350-4.940 [facility] CenterThyroid Stimulating Hormone (TSH) 2017-09-25 11:50:00* Test Item Value Reference Range Interpretation Comments Thyroid Stimulating Hormone (TSH) (test code = 20859-9) 0.515 0.350-4.940 [facility] CenterThyroid Stimulating Hormone (TSH) 2017-09-25 11:50:00* Test Item Value Reference Range Interpretation Comments Thyroid Stimulating Hormone (TSH) (test code = 12080-0) 0.515 0.350-4.940 [facility] CenterUrine Lzqzl9912-79-75 11:45:00* Test Item Value Reference Range Interpretation Comments Urine Color (test code = 5778-6) COLORLESS YELLOW [facility] CenterUrine Lajdnfz3277-89-27 11:45:00* Test Item Value Reference Range Interpretation Comments Urine Clarity (test code = 05371-3) CLEAR CLEAR [facility] CenterUrine Specific Elqwphp0014-79-48 11:45:00 * Test Item Value Reference Range Interpretation Comments Urine Specific [place] (test code = 5811-5) 1.010 1.010-1.02 5 [facility] CenterU[facility] [id number] 11:45:00* Test Item Value Reference Range Interpretation Comments Urine pH (test code = 41165-7) 6 5-7 [facility] CenterU[facility] Leukocyte Cyhixzhu9183-75-46 11:45:00* Test Item Value Reference Range Interpretation Comments Urine Leukocyte Esterase (test code = 5799-2) NEGATIVE NEGATIVE [facility] CenterU[facility] Thwwqnn2671-43-27 11:45:00* Test Item Value Reference Range Interpretation Comments Urine Nitrite (test code = 80377-4) NEGATIVE NEGATIVE [facility] CenterU[facility] Jjvyqpu4209-34-72 11:45:00* Test Item Value Reference Range Interpretation Comments Urine Protein (test code = 5804-0) NEGATIVE NEGATIVE [facility] CenterUrine Glucose (UA)2017-09-25 11:45:00* Test Item Value Reference Range Interpretation Comments Urine Glucose (UA) (test code = 2349-9) NEGATIVE NEGATIVE [facility] CenterU[facility] Esbcxct5485-53-83 11:45:00* Test Item Value Reference Range Interpretation Comments Urine Ketones (test code = 30381-5) NEGATIVE NEGATIVE [facility] CenterU[facility] Guncvpbzxbfm3349-06-58 11:45:00* Test Item Value Reference Range Interpretation Comments Urine Urobilinogen (test code = 36140-4) 0.2 0.2-1 [facility] CenterU[facility] Watmbjohx3318-74-51 11:45:00* Test Item Value Reference Range Interpretation Comments Urine Bilirubin (test code = 1978-6) NEGATIVE NEGATIVE [facility] Esxfg4413-83-75 11:45:00* Test Item Value Reference Range Interpretation Comments Urine Blood (test code = 72298-1) NEGATIVE NEGATIVE [facility] Keyyo3497-99-20 11:45:00* Test Item Value Reference Range Interpretation Comments Urine Color (test code = 5778-6) COLORLESS YELLOW [facility] CenterU[facility] Bogftet2970-55-12 11:45:00* Test Item Value Reference Range Interpretation Comments Urine Clarity (test code = 09968-5) CLEAR CLEAR [facility] CenterUrine Specific Gvldozg7660-21-88 11:45:00 * Test Item Value Reference Range Interpretation Comments Urine Specific [place] (test code = 5811-5) 1.010 1.010-1.02 5 [facility] CenterU[facility] [id number] 11:45:00* Test Item Value Reference Range Interpretation Comments Urine pH (test code = 39084-7) 6 5-7 [facility] CenterU[facility] Leukocyte Pnszfwaz4102-61-78 11:45:00* Test Item Value Reference Range Interpretation Comments Urine Leukocyte Esterase (test code = 5799-2) NEGATIVE NEGATIVE [facility] CenterU[facility] Yfzglzd2964-39-62 11:45:00* Test Item Value Reference Range Interpretation Comments Urine Nitrite (test code = 18557-0) NEGATIVE NEGATIVE [facility] CenterU[facility] Pqwahkl3341-66-88 11:45:00* Test Item Value Reference Range Interpretation Comments Urine Protein (test code = 5804-0) NEGATIVE NEGATIVE [facility] CenterUrine Glucose (UA)2017-09-25 11:45:00* Test Item Value Reference Range Interpretation Comments Urine Glucose (UA) (test code = 2349-9) NEGATIVE NEGATIVE [facility] CenterU[facility] Vudzhis2639-20-71 11:45:00* Test Item Value Reference Range Interpretation Comments Urine Ketones (test code = 75980-5) NEGATIVE NEGATIVE [facility] CenterU[facility] Amsvjkscwfxu2692-87-37 11:45:00* Test Item Value Reference Range Interpretation Comments Urine Urobilinogen (test code = 84153-9) 0.2 0.2-1 [facility] CenterU[facility] Mgadasnvn0494-96-59 11:45:00* Test Item Value Reference Range Interpretation Comments Urine Bilirubin (test code = 1978-6) NEGATIVE NEGATIVE [facility] CenterU[facility] Sekmv4479-42-63 11:45:00* Test Item Value Reference Range Interpretation Comments Urine Blood (test code = 06803-0) NEGATIVE NEGATIVE [facility] CenterTotal Svqabgoif3440-76-17 11:25:00* Test Item Value Reference Range Interpretation Comments Total Bilirubin (test code = 1975-2) 0.3 0.2-1.2 [facility] CenterAspartate Amino Transf (AST/SGOT) 2017-09-25 11:25:00* Test Item Value Reference Range Interpretation Comments Aspartate Amino Transf (AST/SGOT) (test code = Aspartate Amino Transf (AST/SGOT)) 23 5-34 [facility] CenterAlanine Aminotransferase (ALT/SGPT) 2017-09-25 11:25:00* Test Item Value Reference Range Interpretation Comments Alanine Aminotransferase (ALT/SGPT) (test code = 1742-6) 27 0-55 [facility] [facility] CenterTotal Japaogt8694-42-03 11:25:00* Test Item Value Reference Range Interpretation Comments Total Protein (test code = 2885-2) 6.8 6.5-8.1 [facility] CenterAlbumin2018-03-05 11:25:00* Test Item Value Reference Range Interpretation Comments Albumin (test code = 1751-7) 3.4 3.5-5.0 L [facility] CenterGlobulin2018-03-05 11:25:00* Test Item Value Reference Range Interpretation Comments Globulin (test code = 69254-6) 3.4 2.3-3.5 [facility] CenterAlbumin/Globulin Imqod9082-67-11 11:25:00 * Test Item Value Reference Range Interpretation Comments Albumin/Globulin Ratio (test code = 1759-0) 1.0 0.8-2.0 [facility] CenterAlkaline Qwhqxyxcxus1235-52-76 11:25:00* Test Item Value Reference Range Interpretation Comments Alkaline Phosphatase (test code = 6768-6) 67 40-150 [facility] CenterTotal Xjpinnejs9251-94-63 11:25:00* Test Item Value Reference Range Interpretation Comments Total Bilirubin (test code = 1975-2) 0.3 0.2-1.2 [facility] CenterAspartate Amino Transf (AST/SGOT) 2017-09-25 11:25:00* Test Item Value Reference Range Interpretation Comments Aspartate Amino Transf (AST/SGOT) (test code = Aspartate Amino Transf (AST/SGOT)) 23 5-34 [facility] CenterAlanine Aminotransferase (ALT/SGPT) 2017-09-25 11:25:00* Test Item Value Reference Range Interpretation Comments Alanine Aminotransferase (ALT/SGPT) (test code = 1742-6) 27 0-55 [facility] CenterTotal Maqmpcx2310-10-05 11:25:00* Test Item Value Reference Range Interpretation Comments Total Protein (test code = 2885-2) 6.8 6.5-8.1 [facility] CenterAlbumin2018-03-05 11:25:00* Test Item Value Reference Range Interpretation Comments Albumin (test code = 1751-7) 3.4 3.5-5.0 L [facility] CenterGlobulin2018-03-05 11:25:00* Test Item Value Reference Range Interpretation Comments Globulin (test code = 67062-3) 3.4 2.3-3.5 [facility] CenterAlbumin/Globulin Zuwlj1970-21-84 11:25:00 * Test Item Value Reference Range Interpretation Comments Albumin/Globulin Ratio (test code = 1759-0) 1.0 0.8-2.0 [facility] CenterAlkaline Dhxlpcfxpwy4934-37-61 11:25:00* Test Item Value Reference Range Interpretation Comments Alkaline Phosphatase (test code = 6768-6) 67 40-150 [facility] CenterBedside Fmljdqe9216-37-89 13:07:00* Test Item Value Reference Range Interpretation Comments Bedside Glucose (test code = 32293-2) 373 70-120 H Meter ID: [id number] [facility] HospitalBlood Culture 2017-08-26 07:45:00* Test Item Value Reference Range Interpretation Comments Blood Culture (test code = 81877410) NO GROWTH AFTER 48 HOURS [facility] Hopyq5691-55-46 07:23:00* Test Item Value Reference Range Interpretation Comments Sodium Level (test code = 2951-2) 139 136-145 [facility] CenterPotassium Lviih3272-77-37 07:23:00* Test Item Value Reference Range Interpretation Comments Potassium Level (test code = 2823-3) 4.7 3.5-5.1 [facility] CenterChloride Fblop2009-12-99 07:23:00* Test Item Value Reference Range Interpretation Comments Chloride Level (test code = 2075-0) 103 98-107 [facility] CenterCarbon Dioxide Kupsv0793-14-35 07:23:00* Test Item Value Reference Range Interpretation Comments Carbon Dioxide Level (test code = 2028-9) 28 22-29 [facility] CenterAnion Qex9589-27-49 07:23:00* Test Item Value Reference Range Interpretation Comments Anion Gap (test code = 51188-5) 12.7 8-16 [facility] CenterBlood Urea Ppatdetp6083-60-43 07:23:00* Test Item Value Reference Range Interpretation Comments Blood Urea Nitrogen (test code = 3094-0) 19 7-26 [facility] CenterCreatinine2018-02-02 07:23:00* Test Item Value Reference Range Interpretation Comments Creatinine (test code = 2160-0) 1.05 0.57-1.11 [facility] CenterBUN/Creatinine Nsigq7003-97-61 07:23:00* Test Item Value Reference Range Interpretation Comments BUN/Creatinine Ratio (test code = 3097-3) 18 6-25 [facility] CenterEstimat Glomerular Filtration Rate 2017-08-25 07:23:00* Test Item Value Reference Range Interpretation Comments Estimat Glomerular Filtration Rate (test code = 79391-2) 53 >60 L Ranges were taken from the National Kidney Disease Education Program and the [facility] Kidney Foundation literature.Reference ranges:60 or greater: Saeydl54-55 ( for 3 consecutive months): Chronic kidney disease 15 or less: Kidney failureCovenant Medical CenterGlucose Jjvrt1655-65-28 07:23:00* Test Item Value Reference Range Interpretation Comments Glucose Level (test code = ACP5947) 249 74-118 H [facility] CenterCalcium Hwszj9041-93-83 07:23:00* Test Item Value Reference Range Interpretation Comments Calcium Level (test code = 12704-1) 8.8 8.4-10.2 [facility] CenterTotal Nydohdpon5939-06-85 07:23:00* Test Item Value Reference Range Interpretation Comments Total Bilirubin (test code = 1975-2) 0.5 0.2-1.2 [facility] CenterAspartate Amino Transf (AST/SGOT) 2017-08-25 07:23:00* Test Item Value Reference Range Interpretation Comments Aspartate Amino Transf (AST/SGOT) (test code = Aspartate Amino Transf (AST/SGOT)) 15 5-34 [facility] CenterAlanine Aminotransferase (ALT/SGPT) 2017-08-25 07:23:00* Test Item Value Reference Range Interpretation Comments Alanine Aminotransferase (ALT/SGPT) (test code = 1742-6) 16 0-55 [facility] CenterTotal Iqaobht1208-22-05 07:23:00* Test Item Value Reference Range Interpretation Comments Total Protein (test code = 2885-2) 6.7 6.5-8.1 [facility] CenterAlbumin2018-02-02 07:23:00* Test Item Value Reference Range Interpretation Comments Albumin (test code = 1751-7) 3.3 3.5-5.0 L [facility] CenterGlobulin2018-02-02 07:23:00* Test Item Value Reference Range Interpretation Comments Globulin (test code = 84499-9) 3.4 2.3-3.5 [facility] CenterAlbumin/Globulin Aooho5886-90-02 07:23:00 * Test Item Value Reference Range Interpretation Comments Albumin/Globulin Ratio (test code = 1759-0) 1.0 0.8-2.0 [facility] CenterAlkaline Lyhggqoulhr3103-43-29 07:23:00* Test Item Value Reference Range Interpretation Comments Alkaline Phosphatase (test code = 6768-6) 62 40-150 [facility] CenterTriglycerides Mglvt2605-70-26 07:23:00* Test Item Value Reference Range Interpretation Comments Triglycerides Level (test code = 2571-8) 216 0-149 H [facility] CenterCholesterol Cmawn2086-56-15 07:23:00* Test Item Value Reference Range Interpretation Comments Cholesterol Level (test code = 2093-3) 181 0-199 Less than 200 mg/dL Low Dlpj721 - 239 mg/dL Borderline Udgu128 m g/dl and greater High Risk [facility] CenterLDL Fvabigadbnu7868-51-31 07:23:00* Test Item Value Reference Range Interpretation Comments LDL Cholesterol (test code = 2089-1) 109 60-130 [facility] CenterHDL Cbkbjzsmzos5108-19-26 07:23:00* Test Item Value Reference Range Interpretation Comments HDL Cholesterol (test code = 2085-9) 29 40-60 L [facility] CenterCholesterol/HDL Ijlrz7733-23-80 07:23:00 * Test Item Value Reference Range Interpretation Comments Cholesterol/HDL Ratio (test code = 9830-1) 6.2 3.0-3.6 H [facility] CenterTriglycerides Bszin7363-27-79 07:23:00* Test Item Value Reference Range Interpretation Comments Triglycerides Level (test code = 2571-8) 216 0-149 H [facility] CenterCholesterol Zfmln7767-70-99 07:23:00* Test Item Value Reference Range Interpretation Comments Cholesterol Level (test code = 2093-3) 181 0-199 Less than 200 mg/dL Low Tadn349 - 239 mg/dL Borderline Ljzh352 m g/dl and greater High Risk [facility] CenterLDL Phzsdhanrex6128-58-42 07:23:00* Test Item Value Reference Range Interpretation Comments LDL Cholesterol (test code = 2089-1) 109 60-130 [facility] Fsgdcbcqinh9347-41-56 07:23:00* Test Item Value Reference Range Interpretation Comments HDL Cholesterol (test code = 2085-9) 29 40-60 L [facility] CenterCholesterol/HDL Ptfos4428-92-15 07:23:00 * Test Item Value Reference Range Interpretation Comments Cholesterol/HDL Ratio (test code = 9830-1) 6.2 3.0-3.6 H [facility] CenterTriglycerides Fonnb0169-09-25 07:23:00* Test Item Value Reference Range Interpretation Comments Triglycerides Level (test code = 2571-8) 216 0-149 H [facility] CenterCholesterol Fojfh0734-16-43 07:23:00* Test Item Value Reference Range Interpretation Comments Cholesterol Level (test code = 2093-3) 181 0-199 Less than 200 mg/dL Low Inml921 - 239 mg/dL Borderline Vwvd964 m g/dl and greater High Risk [facility] CenterLDL Yqzbbcypshv3983-09-57 07:23:00* Test Item Value Reference Range Interpretation Comments LDL Cholesterol (test code = 2089-1) 109 60-130 [facility] Bzmqmyciroc4218-60-73 07:23:00* Test Item Value Reference Range Interpretation Comments HDL Cholesterol (test code = 2085-9) 29 40-60 L [facility] CenterCholesterol/HDL Vkugi4539-74-45 07:23:00 * Test Item Value Reference Range Interpretation Comments Cholesterol/HDL Ratio (test code = 9830-1) 6.2 3.0-3.6 H [facility] CenterTriglycerides Fqret6774-70-79 07:23:00* Test Item Value Reference Range Interpretation Comments Triglycerides Level (test code = 2571-8) 216 0-149 H [facility] CenterCholesterol Ouxmp6447-40-64 07:23:00* Test Item Value Reference Range Interpretation Comments Cholesterol Level (test code = 2093-3) 181 0-199 Less than 200 mg/dL Low Iieo648 - 239 mg/dL Borderline Twci782 m g/dl and greater High Risk [facility] CenterLDL Robzeyzlpfl7036-44-02 07:23:00* Test Item Value Reference Range Interpretation Comments LDL Cholesterol (test code = 2089-1) 109 60-130 [facility] Qwvekvjjung9149-82-03 07:23:00* Test Item Value Reference Range Interpretation Comments HDL Cholesterol (test code = 2085-9) 29 40-60 L [facility] CenterCholesterol/HDL Vkkln5706-47-74 07:23:00 * Test Item Value Reference Range Interpretation Comments Cholesterol/HDL Ratio (test code = 9830-1) 6.2 3.0-3.6 H [facility] CenterTriglycerides Fepcb8505-52-43 07:23:00* Test Item Value Reference Range Interpretation Comments Triglycerides Level (test code = 2571-8) 216 0-149 H [facility] CenterCholesterol Olxil3452-29-56 07:23:00* Test Item Value Reference Range Interpretation Comments Cholesterol Level (test code = 2093-3) 181 0-199 Less than 200 mg/dL Low Cqyp501 - 239 mg/dL Borderline Fvxz773 m g/dl and greater High Risk [facility] CenterLDL Pzgthocgrcj5102-91-15 07:23:00* Test Item Value Reference Range Interpretation Comments LDL Cholesterol (test code = 2089-1) 109 60-130 [facility] Otmhvfmqvfd4577-36-83 07:23:00* Test Item Value Reference Range Interpretation Comments HDL Cholesterol (test code = 2085-9) 29 40-60 L [facility] CenterCholesterol/HDL Karpm8698-28-06 07:23:00 * Test Item Value Reference Range Interpretation Comments Cholesterol/HDL Ratio (test code = 9830-1) 6.2 3.0-3.6 H [facility] CenterTriglycerides Bjwix8860-94-07 07:23:00* Test Item Value Reference Range Interpretation Comments Triglycerides Level (test code = 2571-8) 216 0-149 H [facility] CenterCholesterol Ybfsn0055-69-37 07:23:00* Test Item Value Reference Range Interpretation Comments Cholesterol Level (test code = 2093-3) 181 0-199 Less than 200 mg/dL Low Leni203 - 239 mg/dL Borderline Cdoe877 m g/dl and greater High Risk [facility] CenterLDL Rvdsbmajume6027-45-09 07:23:00* Test Item Value Reference Range Interpretation Comments LDL Cholesterol (test code = 2089-1) 109 60-130 [facility] CenterHDL Tcoqclywipw9096-96-83 07:23:00* Test Item Value Reference Range Interpretation Comments HDL Cholesterol (test code = 2085-9) 29 40-60 L [facility] CenterCholesterol/HDL Ixvab4003-30-03 07:23:00 * Test Item Value Reference Range Interpretation Comments Cholesterol/HDL Ratio (test code = 9830-1) 6.2 3.0-3.6 H [facility] CenterWhite Blood Ixiee9409-10-58 07:08:00* Test Item Value Reference Range Interpretation Comments White Blood Count (test code = 6690-2) 4.69 4.8-10.8 L [facility] CenterRed Blood Tcvki2397-93-20 07:08:00* Test Item Value Reference Range Interpretation Comments Red Blood Count (test code = 789-8) 4.53 3.6-5.1 [facility] CenterHemoglobin2018-02-02 07:08:00* Test Item Value Reference Range Interpretation Comments Hemoglobin (test code = 57384-0) 11.9 12.0-16.0 L [facility] CenterHematocrit2018-02-02 07:08:00* Test Item Value Reference Range Interpretation Comments Hematocrit (test code = 4544-3) 39.4 34.2-44.1 [facility] CenterMean Corpuscular Spgrkj3701-38-63 07:08:00* Test Item Value Reference Range Interpretation Comments Mean Corpuscular Volume (test code = 787-2) 87.0 81-99 [facility] CenterMean Corpuscular Veaxfxzcof4396-68-64 07:08:00* Test Item Value Reference Range Interpretation Comments Mean Corpuscular Hemoglobin (test code = 785-6) 26.3 28-32 L [facility] CenterMean Corpuscular Hemoglobin Concent 2017-08-25 07:08:00* Test Item Value Reference Range Interpretation Comments Mean Corpuscular Hemoglobin Concent (test code = 786-4) 30.2 31-35 L [facility] CenterRed Cell Distribution Npmwg6316-09-72 07:08:00* Test Item Value Reference Range Interpretation Comments Red Cell Distribution Width (test code = 86958-3) 14.8 11.7 -14.4 H [facility] CenterPlatelet Xxnjh5981-51-31 07:08:00* Test Item Value Reference Range Interpretation Comments Platelet Count (test code = 777-3) 177 140-360 [facility] CenterNeutrophils (%) (Auto)2017-08-25 07:08:00 * Test Item Value Reference Range Interpretation Comments Neutrophils (%) (Auto) (test code = 19495-4) 55.5 38.7-80.0 [facility] CenterLymphocytes (%) (Auto)2017-08-25 07:08:00 * Test Item Value Reference Range Interpretation Comments Lymphocytes (%) (Auto) (test code = 736-9) 28.8 18.0-39.1 [facility] CenterMonocytes (%) (Auto)2017-08-25 07:08:00* Test Item Value Reference Range Interpretation Comments Monocytes (%) (Auto) (test code = 5905-5) 8.7 4.4-11.3 [facility] CenterEosinophils (%) (Auto)2017-08-25 07:08:00 * Test Item Value Reference Range Interpretation Comments Eosinophils (%) (Auto) (test code = 713-8) 5.1 0.0-6.0 [facility] CenterBasophils (%) (Auto)2017-08-25 07:08:00* Test Item Value Reference Range Interpretation Comments Basophils (%) (Auto) (test code = 706-2) 1.3 0.0-1.0 H [facility] CenterIM GRANULOCYTES %2017-08-25 07:08:00* Test Item Value Reference Range Interpretation Comments IM GRANULOCYTES % (test code = IM GRANULOCYTES %) 0.6 0.0- 1.0 [facility] CenterNeutrophils # (Auto)2017-08-25 07:08:00* Test Item Value Reference Range Interpretation Comments Neutrophils # (Auto) (test code = 751-8) 2.6 2.1-6.9 [facility] CenterLymphocytes # (Auto)2017-08-25 07:08:00* Test Item Value Reference Range Interpretation Comments Lymphocytes # (Auto) (test code = 31941-6) 1.4 1.0-3.2 [facility] CenterMonocytes # (Auto)2017-08-25 07:08:00* Test Item Value Reference Range Interpretation Comments Monocytes # (Auto) (test code = 742-7) 0.4 0.2-0.8 [facility] CenterEosinophils # (Auto)2017-08-25 07:08:00* Test Item Value Reference Range Interpretation Comments Eosinophils # (Auto) (test code = 711-2) 0.2 0.0-0.4 [facility] CenterBasophils # (Auto)2017-08-25 07:08:00* Test Item Value Reference Range Interpretation Comments Basophils # (Auto) (test code = 704-7) 0.1 0.0-0.1 [facility] CenterAbsolute Immature Granulocyte (auto 2017-08-25 07:08:00* Test Item Value Reference Range Interpretation Comments Absolute Immature Granulocyte (auto (joseph t code = Absolute Immature Granulocyte (auto) 0.03 0-0.1 [facility] CenterCreatine Lujjot9359-49-76 01:09:00* Test Item Value Reference Range Interpretation Comments Creatine Kinase (test code = 2157-6) 41 29-168 [facility] CenterCreatine Kinase IJ4369-83-39 01:09:00* Test Item Value Reference Range Interpretation Comments Creatine Kinase MB (test code = 57084-6) 1.30 0.00-5.00 [facility] CenterTroponin Q8317-11-22 01:09:00* Test Item Value Reference Range Interpretation Comments Troponin I (test code = 97133-1) 0.006 0-0.300 [facility] CenterHemoglobin A1c Zqqbied9848-08-71 18:39:00 * Test Item Value Reference Range Interpretation Comments Hemoglobin A1c Percent (test code = Hemoglobin A1c Percent) 7.6 4.0-7.0 H [facility] CenterHemoglobin A1c Vxrwjak2147-45-89 18:39:00 * Test Item Value Reference Range Interpretation Comments Hemoglobin A1c Percent (test code = Hemoglobin A1c Percent) 7.6 4.0-7.0 H [facility] CenterHemoglobin A1c Wgawbxt1416-97-37 18:39:00 * Test Item Value Reference Range Interpretation Comments Hemoglobin A1c Percent (test code = Hemoglobin A1c Percent) 7.6 4.0-7.0 H [facility] CenterHemoglobin A1c Zxhcmau7554-26-93 18:39:00 * Test Item Value Reference Range Interpretation Comments Hemoglobin A1c Percent (test code = Hemoglobin A1c Percent) 7.6 4.0-7.0 H [facility] CenterHemoglobin A1c Txxuhfj7314-87-71 18:39:00 * Test Item Value Reference Range Interpretation Comments Hemoglobin A1c Percent (test code = Hemoglobin A1c Percent) 7.6 4.0-7.0 H [facility] CenterHemoglobin A1c Qhhmmdh3822-72-23 18:39:00 * Test Item Value Reference Range Interpretation Comments Hemoglobin A1c Percent (test code = Hemoglobin A1c Percent) 7.6 4.0-7.0 H [facility] CenterHemoglobin A1c Bjhdpja3963-22-78 18:39:00 * Test Item Value Reference Range Interpretation Comments Hemoglobin A1c Percent (test code = Hemoglobin A1c Percent) 7.6 4.0-7.0 H [facility] CenterHemoglobin A1c Vpkwafp9758-10-70 18:39:00 * Test Item Value Reference Range Interpretation Comments Hemoglobin A1c Percent (test code = Hemoglobin A1c Percent) 7.6 4.0-7.0 H [facility] CenterHemoglobin A1c Qaiwqqc7904-46-94 18:39:00 * Test Item Value Reference Range Interpretation Comments Hemoglobin A1c Percent (test code = Hemoglobin A1c Percent) 7.6 4.0-7.0 H [facility] CenterHemoglobin A1c Ocqbvmq7487-85-32 18:39:00 * Test Item Value Reference Range Interpretation Comments Hemoglobin A1c Percent (test code = Hemoglobin A1c Percent) 7.6 4.0-7.0 H [facility] CenterUrine DZK4442-74-33 07:50:00* Test Item Value Reference Range Interpretation Comments Urine WBC (test code = 5821-4) 0-5 0-5 [facility] CenterUrine WQM9321-41-52 07:50:00* Test Item Value Reference Range Interpretation Comments Urine RBC (test code = 29317-5) 0-5 0-5 [facility] CenterUrine Ymintnhj4635-86-02 07:50:00* Test Item Value Reference Range Interpretation Comments Urine Bacteria (test code = 16130-6) FEW NONE [facility] CenterUrine Epithelial Yeisw2959-60-20 07:50:00 * Test Item Value Reference Range Interpretation Comments Urine Epithelial Cells (test code = 00932-3) FEW NONE [facility] CenterB-Type Natriuretic Fhcusua6904-11-16 07:47:00* Test Item Value Reference Range Interpretation Comments B-Type Natriuretic Peptide (test code = 36926-6) 17.8 0-100 [facility] CenterThyroid Stimulating Hormone (TSH) 2017-08-24 07:47:00* Test Item Value Reference Range Interpretation Comments Thyroid Stimulating Hormone (TSH) (test code = 96704-8) 1.123 0.350-4.940 [facility] CenterInfluenza Virus Types A,B Antigen 2017-08-24 07:39:00* Test Item Value Reference Range Interpretation Comments Influenza Virus Types A,B Antigen (test code = 50885-7) NEGATIVE [facility]GATIVE [facility] Cvgnf9550-48-06 07:32:00* Test Item Value Reference Range Interpretation Comments Magnesium Level (test code = 61107-4) 2.0 1.3-2.1 [facility] Rgaih1412-49-31 07:32:00* Test Item Value Reference Range Interpretation Comments Magnesium Level (test code = 59491-9) 2.0 1.3-2.1 [facility] Zaomn2034-55-18 07:32:00* Test Item Value Reference Range Interpretation Comments Magnesium Level (test code = 70202-0) 2.0 1.3-2.1 [facility] CenterProthrombin Pzky3545-93-84 07:19:00* Test Item Value Reference Range Interpretation Comments Prothrombin Time (test code = 5902-2) 13.0 11.9-14.5 [facility] CenterProthromb Time International Ratio 2017-08-24 07:19:00* Test Item Value Reference Range Interpretation Comments Prothromb Time International Ratio (test code = 6301-6) 0.94 Oral Anticoagulant Therapy INR Values:1. Low Intensity Therapy 1.5 - 2.02 . Moderate Intensity Therapy 2.0 - 3.03. High Intensity Therapy(1) 2.5 - 3. 54. High Intensity Therapy(2) 3.0 - 4.05. Panic Value INR > 5.0 [facility] CenterActivated Partial Thromboplast Time 2017-08-24 07:19:00* Test Item Value Reference Range Interpretation Comments Activated Partial Thromboplast Time (test code = 59008-5) 25.1 23.8-35.5 [facility] CenterUrine Xeokk6367-26-50 07:18:00* Test Item Value Reference Range Interpretation Comments Urine Color (test code = 5778-6) YELLOW YELLOW [facility] CenterUrine Riumsce9144-18-41 07:18:00* Test Item Value Reference Range Interpretation Comments Urine Clarity (test code = 08428-8) CLEAR CLEAR [facility] CenterUrine Specific Wqhyaqb1716-49-95 07:18:00 * Test Item Value Reference Range Interpretation Comments Urine Specific [place] (test code = 5811-5) 1.025 1.010-1.02 5 [facility] CenterUrine pA1410-80-96 07:18:00* Test Item Value Reference Range Interpretation Comments Urine pH (test code = 26604-3) 5 5-7 [facility] CenterUrine Leukocyte Hfskcooc4193-56-07 07:18:00* Test Item Value Reference Range Interpretation Comments Urine Leukocyte Esterase (test code = 5799-2) NEGATIVE NEGATIVE [facility] CenterUrine Cvmbmkd9001-17-23 07:18:00* Test Item Value Reference Range Interpretation Comments Urine Nitrite (test code = 06779-7) NEGATIVE NEGATIVE [facility] Xzugddl1791-73-46 07:18:00* Test Item Value Reference Range Interpretation Comments Urine Protein (test code = 5804-0) NEGATIVE NEGATIVE [facility] CenterUrine Glucose (UA)2017-08-24 07:18:00* Test Item Value Reference Range Interpretation Comments Urine Glucose (UA) (test code = 2349-9) 3+ NEGATIVE H [facility] Mpsadgi5263-60-65 07:18:00* Test Item Value Reference Range Interpretation Comments Urine Ketones (test code = 01842-9) NEGATIVE NEGATIVE [facility] CenterUrine Ghpzqvnswgmf4185-28-22 07:18:00* Test Item Value Reference Range Interpretation Comments Urine Urobilinogen (test code = 29691-6) 0.2 0.2-1 [facility] CenterUrine Tqnujpwyy1279-48-66 07:18:00* Test Item Value Reference Range Interpretation Comments Urine Bilirubin (test code = 1978-6) NEGATIVE NEGATIVE [facility] Bnulc5411-24-06 07:18:00* Test Item Value Reference Range Interpretation Comments Urine Blood (test code = 44544-5) NEGATIVE NEGATIVE [facility]OPER[facility] COMP [place] [address] Patient Name: KALYANI TALAVERA MR #: [id number] : 1955 Age/Sex: 62/F Req #: [id number] Adm Physician: BENJAMIN MASTERS MD Ordered by: BENJAMIN MASTERS MD Report #: [id number] Locat ion: IMCU Room/Bed: [place] [address] Procedure: [id number] U S/US RENAL RETROPERITONEAL COMP Exam Date: [...] TO: BENJAMIN MASTERS MD CT BRAIN WO [place] [address] Patient Name: KALYANI TALAEVRA MR #: [id number] : 1955 Age/Sex: 62/F Req #: [id number] Adm Physician: Ordered by: FLO TOLBERT MD Report #: [id number] Location: ER Room/Bed: Procedure: [id number] CT/CT BRAIN WO Exam Date: Exam Time: [...] TO: Treasure TOLBERT MD CHEST 2 [address], [place], [place] [address] Patient Name: KAYLANI TALAVERA MR #: [id number] : 1955 Age/Sex: 62/F Req #: [id number] Adm Physician: Ordered by: FLO TOLBERT MD Report #: [id number] Location: ER Room/Bed: Procedure: [id number] DX/CHEST 2 VIEWS Exam Date: 12/23/17 Exam Time: 0 REPORT STATUS: Signed CHEST 2 VIEWS, Technique: [...] FLO TOLBERT MD KNEE LEFT THREE VIEWS [facility] [address] [place], [place] [address] Patient Name: KALYANI TALAVERA MR #: [id number] : 1955 Age/Sex: 62/F Req #: [id number] Adm Physician: Ordered by: JACQUES JANE MD Report #: [id number] Location: ER Room/Bed: Procedure: [id number] DX/KNEE LEFT THREE VIE WS Exam Date: [...] JACQUES JANE MD PELVIS AP 1-2 VIEWS [place] [address] Patient Name: KALYANI TALAVERA MR #: [id number] : 1955 Age/Sex: 62/F Req #: [id number] Adm Physician: Ordered by: JAQCUES JANE MD Report #: [id number] Location: ER Room/Bed: Procedure: [id number] DX/PELVIS AP 1-2 VIEWS Exam Date: 10/31/17 [...] TO: JACQUES JANE MD CHEST 2 VIEWS [place] [address] Patient Name: KALYANI TALAVERA MR #: [id number] : 1955 Age/Sex: 62/F Req #: [id number] Adm Physician: Ordered by: FLO TOLBERT MD Report #: [id number] Location: ER Room/Bed: Procedure: [id number] DX/CHEST 2 VIEWS Exam Date: 10/12/17 Exam [...] TO: FLO TOLBERT MD FOOT RIGHT COMPLETE [place] [address] Patient Name: KALYANI TALAVERA MR #: [id number] : 1955 Age/Sex: 62/F Req #: [id number] Adm Physician: Ordered by: JEFFREY MCDUFFIE MD Report #: [id number] Location: ER Room/Bed: Procedure: [id number] DX/FOOT RIGHT COMPLETE Exa m Date: 10/11/17 [...] JEFFREY MCDUFFIE MD KNEE LEFT THREE VIEWS [place] [address] Patient Name: KALYANI TALAVERA MR #: [id number] : 1955 Age/Sex: 62/F Req #: [id number] Adm Physician: Ordered by: JEFFREY MCDUFFIE MD Report #: [id number] Location: ER Room/Bed: Procedure: [id number] DX/KNEE LEFT THREE VIEWS E xam Date: [...] COPY TO: JEFFREY MCDUFFIE MD CT CHEST [place] [address] Patient Name: KALYANI TALAVERA MR #: [id number] : 1955 Age/Sex: 62/F Req #: [id number] Adm Physician: Ordered by: RAFAELA ASTUDILLO NP Report #: [id number] Location: ER Room/Bed: Procedure: [id number] CT/CT CHEST WO Exam Date: Exam Time: [...] 09/25/2017 1:07 PM Dictated B y: SHIRLEY BRANDNO MD 1307 Transcribed By: JIM on 09/25/17 1307 COPY TO: RAFAELA ASTUDILLO JACKHAMMER OPERATOR CHEST SINGLE (PORTABLE) [place] [address] Patient Name: KALYANI TALAVERA MR #: [id number] : 1955 Age/Sex: 62/F Req #: [id number] Adm Physician: Ordered by: RAFAELA ASTUDILLO JACKHAMMER OPERATOR Report #: [id number] Location: ER Room/Bed: Procedure: [id number] DX/CHEST SINGLE (PORTABLE) E xam Date: 09/25/17 [...] t 11:06 Dictated By: MAE SANCHEZ MD 1106 Transcribed By: ZOLTAN on 09/25/17 1106 COPY TO: RAFAELA ASTUDILLO JACKHAMMER OPERATOR CHEST 2 VIEWS [place] [address] Patient Name: KALYANI TALAVERA MR #: [id number] : 1955 Age/Sex: 62/F Req #: [id number] Adm Physician: Ordered by: FLO TOLBERT MD Report #: [id number] Location: ER Room/Bed: Procedure: [id number] DX/CHEST 2 VIEWS Exam Date: Exam Time: 714 REPORT STATUS: Signed PROCEDURE: CHEST 2 VIEWS TECHNIQUE: PA and lateral chest totaling 2 radio graphs INDICATION: Shortness of breath and syncope COMPARISON: [facility], DX, CHEST 2 VIEWS, 10/15/2016, 23:42. FINDINGS: Bilate ral interstitial opacity, cardiomegaly and central vascular prominence. No si zable pleural effusion. Stable elevation of the right hemidiaphragm. Intact s [place]. CONCLUSION: Cardiomegaly with pulmonary edema. Dictated by: Lachelle Munoz M.D. on 08/24/2017 at 7:51 Electronica lly approved by: Lachelle Munoz M.D. on 08/24/2017 at 7:51 Dictated By: LACHELLE MUNOZ MD 0751 Transcribed By: ZOLTAN on 08/24/17 0751 COPY TO: AILEEN TOLBERT MD CT CERVICAL SPINE WO [place] [address] Patient Name: KALYANI TALAVERA MR #: [id number] : 1955 [facility] 62[id number] Req #: [id number] Adm Physician: Ordered by: FLO TOLBERT MD Report #: [id number] Location: ER Room/Bed: Procedure: [id number] CT/CT CERVICAL SPINE WO Exam D ate: [...] TO: FLO TOLBERT MD CT BRAIN WO [place] [address] Patient Name: KALYANI TALAVERA MR #: [id number] : 0 1955 Age/Sex: 62/F Req #: [id number] Adm Physician: Ordered by: FLO TOLBERT MD Report #: [id number] Location: ER Room/Bed: Procedure: [id number] CT/CT BRAIN WO Exam Date: 08/10 Exam [...] 7:54 AM Dictated By: RILEY WYNN MD [facility] Signed By: RILEY WYNN MD on 08/24/17 0754 Transcribed By: JIM on 08/24/17 0754 COPY TO: FLO TOLBERT MD
[2020-03-27 01:53] LABS: BASOPHILS % 0.5 % (0.0-1.0); EOSINOPHILS # (AUTO) 0.1 (0.0-0.4); HEMATOCRIT 29.9 % (34.2-44.1); HEMOGLOBIN 8.6 g/dL (12.0-16.0); LYMPHOCYTES # (AUTO) 0.9 (1.0-3.2); LYMPHOCYTES % 16.2 % (18.0-39.1); MEAN CORPUSCULAR HEMOGLOBIN 24.9 pg (28-32); MEAN CORPUSCULAR HGB CONC 28.8 g/dL (31-35); MEAN CORPUSCULAR VOLUME 86.4 fL (81-99); MONOCYTES # (AUTO) 0.3 (0.2-0.8); MONOCYTES % 4.9 % (4.4-11.3); NEUTROPHILS # (AUTO) 4.2 (2.1-6.9); NEUTROPHILS % 75.5 % (38.7-80.0); PLATELET COUNT 164 x10e3/uL (140-360); RED BLOOD COUNT 3.46 x10e6/uL (3.6-5.1); RED CELL DISTRIBUTION WIDTH 21.5 % (11.7-14.4)
[2020-03-27 02:11] LABS: ALANINE AMINOTRANSFERASE 48 IU/L (0-55); ALBUMIN 3.7 g/dL (3.5-5.0); ALBUMIN/GLOBULIN RATIO 1.4 (0.8-2.0); ALKALINE PHOSPHATASE 118 IU/L (40-150); ANION GAP 15.2 mmol/L (8-16); BLOOD UREA NITROGEN 21 mg/dL (7-26); BUN/CREATININE RATIO 25 (6-25); CALCIUM 8.5 mg/dL (8.4-10.2); CARBON DIOXIDE 25 mmol/L (22-29); CHLORIDE 106 mmol/L (98-107); CREATININE, SERUM 0.84 mg/dL (0.57-1.11); EST GLOMERULAR FILTRATION RATE > 60 ML/MIN (60-); GLUCOSE 325 mg/dL (74-118); POTASSIUM 4.2 mmol/L (3.5-5.1); SODIUM 142 mmol/L (136-145)
[2020-03-27 02:17] LABS: CREATINE KINASE MB 0.8 ng/mL (0-5.0)
[2020-03-27] MEDS ORDERED: INSULIN REGULAR, HUMAN 100 UNIT/1 ML 3ML VIAL IV STA (02:44)
[2020-03-27] MEDS ORDERED: ALBUTEROL/IPRATROPIUM 3 ML NEB NEB STA (03:18)
--- NOTE | 2020-03-27 03:46 | Diagnostic Imaging Report ---
EXAMINATION: CHEST SINGLE (PORTABLE) INDICATION: ^sob ^[id number] ^[id number] COMPARISON: 02/23/2020 FINDINGS: AP view TUBES and LINES: None. LUNGS: Limited by body habitus and low lung volumes. Bilateral airspace opacities. PLEURA: No pneumothorax. Small left pleural effusion cannot be excluded. HEART AND MEDIASTINUM: The cardiomediastinal silhouette is enlarged, accentuated by technique and low lung volumes. BONES AND SOFT TISSUES: No acute osseous lesion. Soft tissues are unremarkable. UPPER ABDOMEN: No free air under the diaphragm. IMPRESSION: Bilateral lung airspace opacities, representing moderate pulmonary edema and/or pneumonia. Signed by: Dr. Mohit Brandon MD on 03/27/2020 3:43 AM
--- OUTSIDE RECORDS SUMMARY | 2020-03-27 04:31 | XMS REPORT | Continuity of Care Document ---
Author Author [facility] t Organization [facility] Address [address] [place] [address] Phone Unavailable Care Team Providers Care Powder Press Operator Name Role Phone LUCILLE OLIVO MD PCP RAFAELA MCADAMS Attphys Unavailable Treasure JANE Attphys Unavailable BOCCAR, LUCILLE Attphys Unavailable Elyse TOLBERT Attphys Unavailable EUNICE, S ELIESER Attphys Unavailable Charly OLIVIA Attphys Unavailable SONAM, BENJAMIN Attphys Unavailable RETA, P JEFFREY Attphys Unavailable Charly BADILLO Attphys Unavailable BOCCAR, LUCILLE Admphys Unavailable Waldo JUAN Admphys Unavailable SONAM, BENJAMIN Admphys Unavailable PATEL ORTIZ Admphys Unavailable Payers Payer Name Policy Type Policy Number Effective Date Expiration Date Mary ramirezmalick [employer] [id number] 2013 00:00:00 [facility] [employer] [id number] 2013 00:00:00 [facility] Problems Condition Name Condition Details Condition Category Status Onset Date Resolution Date Last Treatment Date Treating Clinician Comments Source Uncontrolled type 2 diabetes mellitus Diabetes type 2, uncontrol led Problem Active [facility] Hyperglycemia Hyperglycemia Problem Active [facility] Pneumonia Pneumonia Problem Active [facility] Syncope Syncope Problem Active [facility] Chronic kidney disease CKD (chronic kidney disease) Problem Active [facility] Pre-syncope Syncope, near Problem Active [facility] Poorly controlled diabetes mellitus Poorly controlled diabetes m ellitus Problem Active [facility] Bradycardia with 41-50 beats per minute Bradycardia with 41- 50 beats per minute Problem Active [facility] Congestive heart failure CHF (congestive heart failure) Problem Active [facility] Chronic obstructive pulmonary disease COPD (chronic ob structive pulmonary disease) Problem Active [facility] Volume depletion Volume depletion Problem Active [facility] Allergies, Adverse Reactions, Alerts Allergy Name Allergy Type Status Severity Reaction(s) Onset Date Inacti ve Date Treating Clinician Comments Source Penicillins DA Active SV 2020-01-06 00:00:00 [facility] Penicillins DA Active SV 2019-12-12 00:00:00 [facility] Penicillins DA Active SV 2019-12-03 00:00:00 [facility] Penicillins DA Active SV 2019-11-20 00:00:00 [facility] Penicillins DA Active SV 2019-08-20 00:00:00 [facility] Penicillins DA Active SV 2019-08-06 00:00:00 [facility] Penicillins DA Active SV 2019-05-31 00:00:00 [facility] Penicillins DA Active SV 2019-05-17 00:00:00 [facility] Penicillin Allergy to Substance Active rash 2019-01-10 00:00:00 [facility] Penicillins DA Active SV 2017-11-15 00:00:00 [facility] Medications Ordered Medication Name Filled Medication Name Start Date Stop Da te Current Medication? Ordering Clinician Indication Dosage Frequency Signature (SIG) Comments Components Source Bacitracin/Polymyxin B Sulfate (Bacitrac in-Polymyxin Ointment) 28.35 Gm Oint...g. Bacitracin/Polymyxin B Sulfate (Bacitrac in-Polymyxin Ointment) 28.35 Gm Oint...g. 2019-04-23 00:00:00 Yes Elieser Dawson Md 2 Three Times A Day [facility] Betamethasone/Clotrimazole (Clotrimazole-Betamethasone Crm) 15 Gm Cr Betamethasone/Clotrimazole (Clotrimazole-Betamethasone Crm) 15 Gm Cr 2019-04-23 00:00:00 Yes Elieser Dawson Md 2 Three Times A Day [facility] Chlorhexidine Gluconate (Hibiclens) 120 Ml Liqd Chlorh exidine Gluconate (Hibiclens) 120 Ml Liqd 2019-04-23 00:00:00 Yes Elieser Dawson Md 5 Three Times A Day [facility] Aspirin (Aspir 81) 81 Mg Tablet. Aspirin (Aspir 81) 81 Mg Tablet. Yes 81 Daily [facility] Furosemide 40 Mg Tablet Furosemide 40 Mg Tablet Yes 40 Twice A Day [facility] Gabapentin 300 Mg Capsule Gabapentin 300 Mg Capsule Yes 300 Every 6 Hours [facility] Glimepiride 2 Mg Tablet Glimepiride 2 Mg Tablet Yes 2 Daily [facility] Insulin Glargine (Lantus 3ML Pen) 100 Units/1 Ml Inj I nsulin Glargine (Lantus 3ML Pen) 100 Units/1 Ml Inj Yes 60 Bedtime [facility] Insulin Lispro (Humalog) 100 Unit/1 Ml Insuln.pen Insu mateus Lispro (Humalog) 100 Unit/1 Ml Insuln.pen Yes 30 Three Times Daily With Meals [facility] Losartan Potassium 50 Mg Tablet Losartan Potassium 50 Mg Tablet Yes 50 Daily [facility] Metoprolol Tartrate 50 Mg Tablet Metoprolol Tartrate 50 Mg Tablet Yes 50 Twice A Day [facility] Omeprazole 40 Mg Capsule.dr Omeprazole 40 Mg Capsule. Yes 40 Daily [facility] Potassium Chloride 10 Meq Tablet.er Potassium Chloride 10 Meq Tablet. er Yes [address] [facility] Ropinirole Hcl 1 Mg Tablet Ropinirole Hcl 1 Mg Tablet Yes 2 Four Times Daily [facility] Sertraline Hcl 100 Mg Tablet Sertraline Hcl 100 Mg Tablet Y es 100 Daily [facility] Simvastatin 40 Mg Tablet Simvastatin 40 Mg Tablet Yes 40 Today At 9:00PM [facility] Spironolactone 25 Mg Tablet Spironolactone 25 Mg Tablet Yes 25 Daily [facility] Insulin Human Regular (Humulin R U-500*) 500 Unit/1 Ml Inj, 50 Subcutaneously Insulin Human Regular (Humulin R U-500*) 500 Unit/1 Ml Inj, 50 Subcutaneously 2019-01-21 00:00:00 No 50 Three Times A Day [facility] Albuterol Sulfate (Proair Hfa Inhaler*) 8.5 Gm Inh, 2 Inh Albuterol Sulfate (Proair Hfa Inhaler*) 8.5 Gm Inh, 2 Inh 2019-01-16 00:00:00 No 2 Four Times Daily as needed for Shortness Of Breath [facility] Fenofibrate Nanocrystallized (Fenofibrate) 145 Mg Tabl et, 145 Mg Oral Fenofibrate Nanocrystallized (Fenofibrate) 145 Mg Tablet, 145 Mg Oral 2019-01-16 00:00:00 No 145 Daily [facility] Sildenafil Citrate (Revatio) 20 Mg Tab, 20 Mg Oral Calista denafil Citrate (Revatio) 20 Mg Tab, 20 Mg Oral 2019-01-16 00:00:00 No 20 Th ree Times A Day [facility] Solifenacin Succinate (Vesicare) 5 Mg Tablet, 10 Mg Or al Solifenacin Succinate (Vesicare) 5 Mg Tablet, 10 Mg Oral 2019-01-16 00:00:00 No 10 Bedtime [facility] Benzonatate (Tessalon Perle) 100 Mg Capsule, 100 Mg Or al Benzonatate (Tessalon Perle) 100 Mg Capsule, 100 Mg Oral 2019-01-13 00:00:00 No 100 Every 12 Hours [facility] Glimepiride 2 Mg Tablet, 4 Mg Oral Glimepiride 2 Mg Tablet, 4 Mg Oral 2019-01-13 00:00:00 No 4 Twice A Day [facility] Furosemide (Lasix) 40 Mg Tablet, 40 Mg Oral Furosemide (Lasix) 40 Mg Tablet, 40 Mg Oral 2018-07-03 00:00:00 No 40 Twice A Day [facility] Paroxetine Hcl 20 Mg Tablet, 40 Mg Oral Paroxetine Hcl 20 Mg Tablet, 40 Mg Oral 2018-06-27 00:00:00 No 40 Daily [facility] Tramadol Hcl (Ultram 50MG*) 50 Mg Tab, 50 Mg Oral Tram adol Hcl (Ultram 50MG*) 50 Mg Tab, 50 Mg Oral 2018-06-27 00:00:00 No 50 Every 12 Hours [facility] Insulin Regular, Human (Humulin R) 100 Unit/1 Ml Vial, 20 Units Subcutaneously Insulin Regular, Human (Humulin R) 100 Unit/1 Ml Vial, 20 Units Subcutaneously 2017-12-28 00:00:00 No 20 Twice A Day [facility] Insulin Detemir (Levemir) 100 Unit/1 Ml Vial, Insulin Detemir (Levemir) 100 Unit/1 Ml Vial, 2017-10-31 00:00:00 [facility] Insulin Aspart (Novolog Mix 70-30 Vial) 100 Units/Ml M l, Insulin Aspart (Novolog Mix 70-30 Vial) 100 Units/Ml Ml, 2017-10-11 00:00:00 [facility] Metformin Hcl (Glucophage) 500 Mg Tablet, Metformin Hc l (Glucophage) 500 Mg Tablet, 2017-09-28 00:00:00 [facility] Metoprolol Succinate (Toprol Xl) 50 Mg Tab.er.24h, 50 Oral Metoprolol Succinate (Toprol Xl) 50 Mg Tab.er.24h, 50 Oral 2017-09-28 00:00:00 No 50 Twice A Day for Elevated Blood Pressure [facility] Procedures Procedure Date / Time Performed Performing Clinician [facility] e X-ray of chest, two views 2019-01-10 00:00:00 BOYD NICHOLS [facility] Computed tomography of brain without radiopaque contrast 201 03-04-19 00:00:00 EUNICEELIESER NOLAN S [facility] Computed tomography of cervical spine without contrast 07-11 00:00:00 EUNICE ELIESER S [facility] CT maxillofacial area wo contrast 2018-07-11 00:00:00 JEAN DAWSON [facility] X-ray of chest, single view 2018-07-01 00:00:00 BENJAMIN MASTERS [facility] X-ray of chest, two views 2018-06-27 00:00:00 TINA JANE [facility] Encounters Start Date/Time End Date/Time Encounter Type Admission Type [facility] Care Department Encounter ID Source 2019-04-27 02:46:00 2019-04-27 04:46:00 Departed Emergency Room 1 JACQUES JANE [facility] [id number] [facility] 2019-04-23 20:19:00 2019-04-23 20:58:00 Departed Emergency Room [facility] [id number] [facility] 2019-04-17 20:48:00 2019-04-17 21:35:00 Departed Emergency Room [facility] [id number] [facility] 2019-03-15 01:19:00 2019-03-15 03:30:00 Departed Emergency Room 1 JACQUES JANE [facility] [id number] [facility] 2019-02-23 23:49:00 2019-02-24 05:38:00 Departed Emergency Room 1 JACQUES JANE [facility] [id number] [facility] 2019-01-18 14:54:00 2019-01-21 16:15:00 Discharged Inpatient 1 JACQUES JANE [facility] [id number] [facility] 2019-01-11 19:31:00 2019-01-13 15:36:00 Discharged Inpatient (obs) 1 FLO TOLBERT [facility] [id number] [facility] 2019-01-10 15:21:00 2019-01-10 19:19:00 Departed Emergency Room 1 ROCKLIN [facility] [id number] [facility] 2018-07-30 16:40:00 2018-07-31 01:45:00 Departed Emergency Room 1 ROCKLIN [facility] [id number] [facility] 2018-07-11 10:03:00 2018-07-11 14:40:00 Departed Emergency Room 1 ELIESER DAWSON [facility] [id number] [facility] 2018-07-01 09:28:00 2018-07-03 14:06:00 Discharged Inpatient 1 LUCILLE OLIVO [facility] [id number] [facility] 2018-05-30 19:52:00 2018-05-30 20:30:00 Departed Emergency Room [facility] [id number] [facility] 2018-04-03 01:16:00 2018-04-03 04:19:00 Departed Emergency Room 1 ROBERT OLIVIA [facility] [id number] [facility] 2018-02-04 11:46:00 2018-02-07 13:55:00 Discharged Inpatient (obs) 1 ROBERT OLIVIA [facility] [id number] [facility] 2018-01-31 22:01:00 2018-02-01 02:14:00 Departed Emergency Room 1 TOMASZ [facility] [id number] [facility] 2017-12-24 00:08:00 2017-12-28 16:18:00 Discharged Inpatient (obs) 1 BENJAMIN MASTERS [facility] [id number] [facility] 2017-10-31 01:50:00 2017-10-31 03:18:00 Departed Emergency Room ER JACQUES JANE [facility] [id number] [facility] 2017-10-25 22:28:00 2017-10-26 00:09:00 Departed Emergency Room [facility] [id number] [facility] 2017-10-11 23:19:00 2017-10-12 04:45:00 Departed Emergency Room ER FLO TOLBERT [facility] [id number] [facility] 2017-10-11 07:38:00 2017-10-11 10:17:00 Departed Emergency Room ER JEFFREY MCDUFFIE [facility] [id number] [facility] 2017-09-25 14:18:00 2017-09-29 13:30:00 Discharged Inpatient ER JAYASHREE BADILLO [facility] [id number] [facility] 2017-08-24 13:00:00 2017-08-26 16:20:00 Discharged Inpatient (obs) ER FLO TOLBERT [facility] [id number] [facility] 2017-04-17 23:09:00 2017-04-18 03:16:00 Departed Emergency Room [facility] [id number] [facility] 2017-02-09 21:43:00 2017-02-10 02:38:00 Departed Emergency Room [facility] [id number] [facility] 2016-12-29 19:19:00 2016-12-30 01:00:00 Departed Emergency Room [facility] [id number] [facility] Results Test Description Test Time Test Comments Results Result Comments Source CHEST SINGLE (PORTABLE) 2020-03-27 03:41:00 [place] [address] Patient Name: KALYANI TALAVERA MR #: [id number] : 1955 Age/Sex: 65/F Req #: [id number] Adm Physician: Ordered by: RAFAELA MCADAMS DO Report #: [id number] Location: ER Room/Bed: Procedure: [id number] DX/CHEST SINGLE (PORTABLE) Exam Date: 03/27/20 Exam Time: 214 REPORT STATUS: Signed EXAMINATION: CHEST SINGLE (PORTABLE) INDICATION: sob [id number] COMPARISON: 02/23/2020 FINDINGS: AP view TUBES and LINES: None. LUNGS: Limited by body habitus and low lung volumes. Bilateral airspace opacities. PLEURA: No pneumothorax. Small left pleural effusion cannot be excluded. HEART AND MEDIASTINUM: The cardiomediastinal silhouette is enlarged, accentuated by technique and low lung volumes. BONES AND SOFT TISSUES: No acute osseous lesion. Soft tissues are unremarkable. UPPER ABDOMEN: No free air under the diaphragm. IMPRESSION: Bilateral lung airspace opacities, representing moderate pulmonary edema and/or pneumonia. Signed by: Dr. Shirley Brandno MD on 03/27/2020 3:43 AM Dictated By: SHIRLEY BRANDON MD 2 Transcribed By: JIM on 03/27/20342 COPY TO: RAFAELA MCADAMS DO CHEST SINGLE (PORTABLE) 2020-03-12 03:34:00 [place] [address] Patient Name: KALYANI TALAVERA MR #: [id number] : 1955 Age/Sex: 65/F Req #: [id number] Adm Physician: Ordered by: JACQUES JANE MD Report #: [id number] Location: ER Room/Bed: Procedure: [id number] DX/CHEST SINGLE (PORTABLE) Exam Date: 03/12/20 Exam [...] MD CHEST XRAY LINE PLACEMENT 2020-02-26 21:45:00 [place] [address] Patient Name: KALYANI TALAVERA MR #: [id number] : 1955 Age/Sex: 64/F Req #: [id number] Adm Physician: LUCILLE OLIVO MD Ordered by: FLO TOLBERT MD Report #: [id number] Location: MED/SURG Room/Bed: 107-1 Procedure: DX/CHEST XRAY LINE PLACEMENT Exam Date: 02/26/20 [...] TOLBERT MD CT ABDOMEN/PELVIS WO 2020-02-26 16:53:00 [place] [address] Patient Name: KALYANI TALAVERA MR #: [id number] : 1955 Age/Sex: 64/F Req #: [id number] Adm Physician: Ordered by: FLO TOLBERT MD Report #: [id number] Location: ER Room/Bed: Procedure: [id number] CT/CT ABDOMEN/PELVIS WO Exam Date: 02/26/20 Exam [...] TOLBERT MD CHEST SINGLE (PORTABLE) 2020-02-26 14:35:00 [place] [address] Patient Name: KALYANI ATLAVERA MR #: [id number] : 1955 Age/Sex: 64/F Req #: [id number] Adm Physician: Ordered by: FLO TOLBERT MD Report #: [id number] Location: ER Room/Bed: Procedure: DX/CHEST SINGLE (PORTABLE) Exam Date: 02/26/20 Exam [...] TOLBERT MD CHEST SINGLE (PORTABLE) 2020-02-08 06:52:00 [place] [address] Patient Name: KALYANI TALAVERA MR #: [id number] : 1955 Age/Sex: 64/F Req #: [id number] Adm Physician: Ordered by: JACQUES JANE MD Report #: [id number] Location: ER Room/Bed: Procedure: [id number] DX/CHEST SINGLE (PORTABLE) Exam Date: 02/08/20 Exam [...] JANE MD CT CHEST W 2020-02-05 06:23:00 [place] [address] Patient Name: KALYANI TALAVERA MR #: [id number] : 1955 Age/Sex: 64/F Req #: [id number] Adm Physician: Ordered by: RAFAELA MCADAMS DO Report #: [id number] Location: ER Room/Bed: Procedure: [id number] CT/CT CHEST W Exam Date: 02/05/20 Exam [...] MCADAMS DO CT ABDOMEN/PELVIS W 2020-02-05 06:23:00 [place] [address] Patient Name: KALYANI TALAVERA MR #: [id number] : 1955 Age/Sex: 64/F Req #: [id number] [facility] Physician: Ordered by: RAFAELA MCADAMS DO Report #: [id number] Location: ER Room/Bed: Procedure: [id number] CT/CT ABDOMEN/PELVIS W Exam Date: 02/05/20 Exam [...] YASH JOSEPH MD Transcribed By: JIM on 02/05/20638 COPY TO: RAFAELA MCADAMS DO GLUBED 2020-01-28 15:32:00 Test Item GLUBED (test code = GLUBED) 386 mg/dL 74-106 H Performed by certified vacuum drum drier operator at [facility] [id number] 11:50:00* Test Item Value Reference Range Interpretation Comments GLUBED (test code = GLUBED) 247 mg/dL 74-106 H Performed by certified vacuum drum drier operator at [facility] [id number] 08:17:00* Test Item Value Reference Range Interpretation Comments GLUBED (test code = GLUBED) 226 mg/dL 74-106 H Performed by certified vacuum drum drier operator at [facility] BASIC METABOLIC [id number] 06:17:00* Test Item Value Reference Range Interpretation [...] CA) 8.8 mg/dL 8.5-10.1 N BASIC METABOLIC [id number] 05:54:00* Test Item Value Reference Range Interpretation [...] CALCIUM (test code = CA) mg/dL 8.5-10.1 [id number] 20:08:00* Test Item Value Reference Range Interpretation Comments GLUBED (test code = GLUBED) 161 mg/dL 74-106 H Performed by certified vacuum drum drier operator at [facility] [id number] 16:30:00* Test Item Value Reference Range Interpretation Comments GLUBED (test code = GLUBED) 120 mg/dL 74-106 H Performed by certified vacuum drum drier operator at [facility] [id number] 11:27:00* Test Item Value Reference Range Interpretation Comments GLUBED (test code = GLUBED) 164 mg/dL 74-106 H Performed by certified vacuum drum drier operator at [facility] - XR CHEST 1 [id number] 09:27:00 FAX: Jasen Frias MD [phone] [place]: [address] St: ADM FAX: Rigo Mccormick MD [phone] FAX: Benjamin Francis MD [phone] Name: KALYANI TALAVERA [facility] : 1955 Age/S: 64/F [address] Unit #: [id number] Loc: V.4040 [place] [address] Phys: Rigo Alexander MD Acct: [id number] Dis Date: Status: ADM IN ONE #: [phone] Exam Date: 01/27/2020 1040 FAX #: [phone] Reason: chf EXAMS: CPT CODE: [id number] XR CHEST 1 V 59181 HISTORY: CHF. COMPARISON: January 24, 2020. Location: [facility]. Suboptimal inspiration. Crowding of bronchovascular [...] RT(R); Donna Childers RT(R) Trnscrd Date/Time/By: 01/27/2020 (926) : By: aniyah [email or web address] Orig Print D/T: S: 01/27/2020 (1041) P AGE 2 Signed Report GLUBED 2020-01-27 07:58:00* Test Item Value Reference Range Interpretation Comments GLUBED (test code = GLUBED) 127 mg/dL 74-106 H Performed by certified vacuum drum drier operator at [facility] [id number] 07:40:00* Test Item Value Reference Range Interpretation Comments GLUBED (test code = GLUBED) 116 mg/dL 74-106 H Performed by certified vacuum drum drier operator at [facility] [id number] 22:23:00* Test Item Value Reference Range Interpretation Comments GLUBED (test code = GLUBED) 259 mg/dL 74-106 H Performed by certified vacuum drum drier operator at [facility] [id number] 17:10:00* Test Item Value Reference Range Interpretation Comments GLUBED (test code = GLUBED) 219 mg/dL 74-106 H Performed by certified vacuum drum drier operator at [facility] [id number] 11:45:00* Test Item Value Reference Range Interpretation Comments GLUBED (test code = GLUBED) 265 mg/dL 74-106 H Performed by certified vacuum drum drier operator at [facility] [id number] 08:52:00* Test Item Value Reference Range Interpretation Comments GLUBED (test code = GLUBED) 317 mg/dL 74-106 H Performed by certified vacuum drum drier operator at [facility] [id number] 23:49:00* Test Item Value Reference Range Interpretation Comments GLUBED (test code = GLUBED) 327 mg/dL 74-106 H Performed by certified vacuum drum drier operator at [facility] [id number] 22:15:00* Test Item Value Reference Range Interpretation Comments GLUBED (test code = GLUBED) 339 mg/dL 74-106 H Performed by certified vacuum drum drier operator at [facility] [id number] 19:59:00* Test Item Value Reference Range Interpretation Comments GLUBED (test code = GLUBED) 497 mg/dL 74-106 H Performed by certified vacuum drum drier operator at [facility] [id number] 18:29:00* Test Item Value Reference Range Interpretation Comments GLUBED (test code = GLUBED) > 500 mg/dL 74-106 HH Performed [facility] certified vacuum drum drier [facility]~ [id number] 16:00:00* Test Item Value Reference Range Interpretation Comments GLUBED (test code = GLUBED) 377 mg/dL 74-106 H Performed by certified vacuum drum drier operator at [facility] [id number] 12:09:00* Test Item Value Reference Range Interpretation Comments GLUBED (test code = GLUBED) 441 mg/dL 74-106 H Performed by certified vacuum drum drier [facility]~ BASIC METABOLIC [id number] 08:19:00* Test Item Value Reference Range Interpretation [...] CA) 8.7 mg/dL 8.5-10.1 N BASIC METABOLIC [id number] 08:11:00* Test Item Value Reference Range Interpretation [...] CALCIUM (test code = CA) mg/dL 8.5-10.1 [id number] 08:00:00* Test Item Value Reference Range Interpretation Comments GLUBED (test code = GLUBED) 493 mg/dL 74-106 H Performed by certified vacuum drum drier [facility] [id number] 02:13:00* Test Item Value Reference Range Interpretation Comments GLUBED (test code = GLUBED) > 500 mg/dL 74-106 HH Performed by certified vacuum drum drier operator [facility]~ [id number] 02:13:00* Test Item Value Reference Range Interpretation Comments GLUBED (test code = GLUBED) > 500 mg/dL 74-106 HH Performed by certified vacuum drum drier operator [facility] [id number] 21:24:00* Test Item Value Reference Range Interpretation Comments GLUBED (test code = GLUBED) 497 mg/dL 74-106 H Performed by certified vacuum drum drier operator at [facility] [id number] 21:24:00* Test Item Value Reference Range Interpretation Comments GLUBED (test code = GLUBED) > 500 mg/dL 74-106 HH Performed by certified vacuum drum drier operator [facility] BASIC METABOLIC [id number] 17:04:00* Test Item Value Reference Range Interpretation [...] CA) 8.6 mg/dL 8.5-10.1 N BASIC METABOLIC [id number] 16:49:00* Test Item Value Reference Range Interpretation [...] CALCIUM (test code = CA) mg/dL 8.5-10.1 [id number] 12:24:00* Test Item Value Reference Range Interpretation Comments GLUBED (test code = GLUBED) 344 mg/dL 74-106 H Performed by certified vacuum drum drier operator at [facility] CBC W/AUTO [id number] 08:32:00* Test Item Value Reference Range Interpretation [...] = MDIFF) NO, ONLY SCAN NEEDED DIFFERENTIAL [id number] 08:32:00* Test Item Value Reference Range Interpretation Comments STAIN ACCEPTABILITY (test code = STN ACCEPTABLE) STAIN ACCEPTABLE POLYCHROMASIA (test code = POLC) 1+ HYPOCHROMIA (test code = HYPO) 1+ POIKILOCYTOSIS (test code = POIK) 1+ ANISOCYTOSIS (test code = ANISO) 1+ PLATELET ESTIMATE (test code = PLTEST) ADEQUATE PLATELET MORPHOLOGY (test code = PLTMORPH) NORMAL URINALYSIS [id number] 07:09:00* Test Item Value Reference Range Interpretation [...] per HPF FEW Urine Source? Clean CatchURINALYSIS [id number] 07:05:00* Test Item Value Reference Range Interpretation [...] HPF NONE Urine Source? Clean CatchB-TYPE NATRIURETIC [id number] 06:41:00* Test Item Value Reference Range Interpretation Comments B-TYPE NATRIURETIC PEPTIDE (test code = BNP) 14.6 pgram/mL 0-100 N CBC W/AUTO [id number] 05:36:00* Test Item Value Reference Range Interpretation [...] = MDIFF) NO, ONLY SCAN NEEDED DIFFERENTIAL [id number] 05:36:00* Test Item Value Reference Range Interpretation Comments STAIN ACCEPTABILITY (test code = STN ACCEPTABLE) MORPHOLOGY COMMENT (test code = MOC) PLATELET ESTIMATE (test code = PLTEST) PLATELET MORPHOLOGY (test code = PLTMORPH) CBC W/AUTO [id number] 05:35:00* Test Item Value Reference Range Interpretation [...] = MDIFF) NO, ONLY SCAN NEEDED DIFFERENTIAL [id number] 05:35:00* Test Item Value Reference Range Interpretation Comments STAIN ACCEPTABILITY (test code = STN ACCEPTABLE) CABOT RINGS (test code = CAB) MORPHOLOGY COMMENT (test code = MOC) PLATELET ESTIMATE (test code = PLTEST) PLATELET MORPHOLOGY (test code = PLTMORPH) CBC W/AUTO [id number] 05:35:00* Test Item Value Reference Range Interpretation [...] = MDIFF) NO, ONLY SCAN NEEDED DIFFERENTIAL [id number] 05:35:00* Test Item Value Reference Range Interpretation Comments STAIN ACCEPTABILITY (test code = STN ACCEPTABLE) MORPHOLOGY COMMENT (test code = MOC) PLATELET ESTIMATE (test code = PLTEST) PLATELET MORPHOLOGY (test code = PLTMORPH) CBC W/AUTO [id number] 05:35:00* Test Item Value Reference Range Interpretation [...] = MDIFF) NO, ONLY SCAN NEEDED DIFFERENTIAL [id number] 05:35:00* Test Item Value Reference Range Interpretation Comments STAIN ACCEPTABILITY (test code = STN ACCEPTABLE) CABOT RINGS (test code = CAB) MORPHOLOGY COMMENT (test code = MOC) PLATELET ESTIMATE (test code = PLTEST) PLATELET MORPHOLOGY (test code = PLTMORPH) BASIC METABOLIC [id number] 05:31:00* Test Item Value Reference Range Interpretation [...] CA) 8.5 mg/dL 8.5-10.1 N HEPATIC FUNCTION [id number] 05:31:00* Test Item Value Reference Range Interpretation [...] reference range due to change in reagent. [id number] 05:31:00* Test Item Value Reference Range Interpretation Comments MAGNESIUM (test code = MAG) 2.1 mg/dL 1.8-2.4 N [id number] 05:31:00* Test Item Value Reference Range Interpretation Comments TROPONIN-I (test code = TROPI) <0.015 ng/mL 0-0.045 N COVID 19 INHOUSE [id number] 04:50:00* Test Item Value Reference Range Interpretation Comments COVID 19 INHOUSE AG (test code = [id number]) NEGATIVE Is patient requiring admission or transfer? YIndication for rapid COVID-19 testi ng: Mod Clinical Suspicion- XR CHEST 1 V 2020-01-24 04:35:00 FAX: Benjamin Francis MD [phone] [place]: St: [facility] FAX: Anastacio Burgess MD Name: KALYANI TALAVERA [facility] : 1955 Age/S: 64/F [address] [facility] Unit #: [id number] Loc: [place] [address] Phys: Anastacio Burgess MD Acct: [id number] Dis Date: Status: REG ER PHONE #: [phone] Exam Date: 01/24/2020 0422 FAX #: [phone] Reason: SHORTNESS OF BREATH EXAMS: CPT CODE: [id number] XR CHEST 1 V 58690 EXAM: - XR CHEST 1 V HISTORY: [...] Masters; Anastacio Burgess MD Technologist: JACINDA LYONS CAPABILITY LEAD Trnscrd Da te/Time/By: 01/24/2020 (0435) : By: [email or web address] Orig Print D/T: S: 01/23 (0438) PAGE 1 Signed Report [id number] 12:58:00* Test Item Value Reference Range Interpretation Comments GLUBED (test code = GLUBED) 54 mg/dL 74-106 L Performed by certified vacuum drum drier operator at [facility] BASIC METABOLIC [id number] 09:17:00* Test Item Value Reference Range Interpretation [...] CA) 8.8 mg/dL 8.5-10.1 N BASIC METABOLIC [id number] 09:06:00* Test Item Value Reference Range Interpretation [...] CALCIUM (test code = CA) mg/dL 8.5-10.1 [id number] 08:29:00* Test Item Value Reference Range Interpretation Comments GLUBED (test code = GLUBED) 160 mg/dL 74-106 H Performed by certified vacuum drum drier operator at [facility] [id number] 20:47:00* Test Item Value Reference Range Interpretation Comments GLUBED (test code = GLUBED) 210 mg/dL 74-106 H Performed by certified vacuum drum drier operator at [facility] [id number] 18:37:00* Test Item Value Reference Range Interpretation Comments GLUBED (test code = GLUBED) 91 mg/dL 74-106 N Performed by certified vacuum drum drier operator at [facility] BASIC METABOLIC [id number] 17:55:00* Test Item Value Reference Range Interpretation [...] CA) 8.5 mg/dL 8.5-10.1 N BASIC METABOLIC [id number] 17:50:00* Test Item Value Reference Range Interpretation [...] CA) mg/dL 8.5-10.1 - XR CHEST 1 [id number] 17:38:00 FAX: Benjamin Francis MD [phone] [place]: [address]: ADM Name: KALYANI CATES [facility] : [birth year] Age/S: 64/F [address] [facility] Unit #: [id number] Loc: V.3042 [place] [address] Phys: Benjamin Masters MD Acct: [id number] Dis Date: Status: ADM IN PHONE #: [phone] Exam Date: 01/13/2020 1531 FAX #: [phone] Reason: CHF EXAMS: CPT CODE: [id number] XR CHEST 1 V 09068 EXAM: Chest x-ray, one view; INFORMATION: Shortness of breath, CHF; IMPRESSION: Moderate improvement compared with the recent study from January 11, 2020: The heart is decreased in size; mild cardiomegaly remains. Lung bases are better demarcated indicating resolution of interstitial edema; mild left heart failure remains. Location code: [facility] at 1733 Reported and signed by: Jc Bravo M.D. CC: Benjamin Masters Technologist: RT Karlene(Megan) Trnscrd Date/Time/By: 01/13/2020 (1737) : By: LeanneGRW Orig Print D/T: S: 01/13/2020 (0891) PAGE 1 Signed Report [id number] 17:22:00* Test Item Value Reference Range Interpretation Comments GLUBED (test code = GLUBED) 84 mg/dL 74-106 N Performed by certified vacuum drum drier operator at [facility] [id number] 16:46:00* Test Item Value Reference Range Interpretation Comments GLUBED (test code = GLUBED) 65 mg/dL 74-106 L Performed by certified vacuum drum drier operator at [facility] BRONCH LAVAGE FLD CELL [id number] 15:32:00* Test Item Value Reference Range Interpretation [...] [id number] Carlyle Markham BRONCHIAL [id number] 14:21:00 RUN DATE: 01/13/20 [facility] PAGE 1 RUN TIME: 1421 Specimen Inqui ry RUN USER: INTERFACE PATIENT: KALYANI TALAVERA ACCT #: [id number] LOC: [place] U #: [id number] AGE/SX: 64/F ROOM: [facility] RE01/07/20REG DR: Benjamin Masters MD : [birth year] BED: A DIS: STATUS: ADM IN TLOC: SPEC #: [id number] RECD: 01/10/20 STATUS: SHREYA REQ #: [id number] MARILEE: 01/10/20- SUBM DR: Benjamin Masters MD ENTERED: 01/10/20 SP TYPE: BRONCH WA OTHR DR: Ivett Valderrama i, MD,Harry Alexander,Rigo Haas MDORDERED: GROSS COPIES TO: Ivett Christianson MD [address] [place] [address] Harry Gutierrez MD [address] [facility] [address] [place] [address] Rigo Alexander MD [address] [facility] [address] [place] [id number] Benjamin Murphy MD [address] [place] [address] PROCED URES: GROSS (01/13/20-1308) TISSUES: BRONCH LAVAGE - 60ML CLOUDY FLUID CLINICAL HISTORY COLLECTION DATE: 01/10/20 INTERSTITIAL LUNG DI SEASE FINAL DIAGNOSIS Left lingular bronchoalveolar lavage for cytol ogy and CD4/CD8 ratio: PULMONARY MACROPHAGES, NEUTROPHILS, AND A FEW COLU MNAR BRONCHIAL LINING CELLS NEGATIVE FOR MALIGNANCY CD4- CD8 RATIO 1.0: 1 (SEE INCLUDED ADX FLOW CYTOMETRY REPORT [id number]) CONTINUED ON NEXT PAGE RUN DATE: 01/13/20 [place] - Lab PAGE 2 RUN TIME: 1421 Specimen Inquiry RUN USER: INTERFACE -- SPEC #: [id number] PATIENT: KALYANI TALAVERA #[id number] (Continued) FINAL DIAGNOSIS (Continued) BRITTNI/corby Simpson [id number], [address] FLOW CYTOMETRY A Flow cytometry repo rt is received from Envia Lá Case No:[id number] the int erpretation is as follows: Clinical [...] developed and its performance characteristics determined by [employer]. It has not been cleared or [...] CONTINUED ON NEXT PAGE RUN DATE: 01/13/20 [place] - Lab PAGE 3 RUN TIME: 1421 Speci men Inquiry RUN USER: INTERFACE SPEC #: [id number] PATIENT: KALYANI MOSES #[id number] (Continued) FLOW CYTOMETRY (Continued) qualified to perform high complexity clinical te sting. The above report was reviewed and interpretive comments are provided. The comments areapproved for the medical records of the identified patient with my electronic signature. Electronic SignatureLachelle Iyer, Research Fellow CPT C ode(s): [phone] ICD Code(s): R89.7 The Technical and Professional components were performed at [facility], [address] [place] [address], [facility] [address], [place] [address] . MACROSCOPIC The specimen is designated as "left lingula BAL". It consists of 60 mL of cloudy fluid for processing and evaluation. Material will be submitted for CD4 CD8 ratio test. A cell block is prepared. GROSS PERFORMED AT [facility] [address] [place] [phone] MICROSCOPIC All of the stains, including any controls pe rformed, stain appropriately. MICROSCOPIC PERFORMED AT [facility] [address] [place] [address] [phone] PERFORMING SITE Diagnosis performed at: [facility] [address] [place] [address] CONTINUED ON NEXT PAGE RUN DATE: 01/13/20 [place] - Lab PAGE 4 RUN TIME: 1421 Specimen Inquiry RUN USER: I JOSH Mary PICHARDO #: [id number] PATIENT: KALYANI TALAVERA #[id number] (Continued) Signed SIGNATURE ON FILE Petty Lowe MD 01/13/20 1421 END OF REPORT GLUBED 2020-01-13 12:45:00* Test Item Value Reference Range Interpretation Comments GLUBED (test code = GLUBED) 105 mg/dL 74-106 N Performed by certified vacuum drum drier operator at [facility] [id number] 08:07:00* Test Item Value Reference Range Interpretation Comments GLUBED (test code = GLUBED) 92 mg/dL 74-106 N Performed by certified vacuum drum drier operator at [facility] [id number] 19:54:00* Test Item Value Reference Range Interpretation Comments GLUBED (test code = GLUBED) 149 mg/dL 74-106 H Performed by certified vacuum drum drier operator at [facility] [id number] 17:05:00* Test Item Value Reference Range Interpretation Comments GLUBED (test code = GLUBED) 127 mg/dL 74-106 H Performed by certified vacuum drum drier operator at [facility] [id number] 12:02:00* Test Item Value Reference Range Interpretation Comments GLUBED (test code = GLUBED) 209 mg/dL 74-106 H Performed by certified vacuum drum drier operator at [facility] [id number] 08:45:00* Test Item Value Reference Range Interpretation Comments GLUBED (test code = GLUBED) 175 mg/dL 74-106 H Performed by certified vacuum drum drier operator at [facility] B-TYPE NATRIURETIC [id number] 07:19:00* Test Item Value Reference Range Interpretation Comments B-TYPE NATRIURETIC PEPTIDE (test code = BNP) 28.74 pgram/mL 0-100 N COMPREHENSIVE METABOLIC [id number] 07:07:00* Test Item Value Reference Range Interpretation [...] due to change in reagent. COMPREHENSIVE METABOLIC [id number] 06:56:00* Test Item Value Reference Range Interpretation [...] code = ALKP) IUnit/L 45-117 CBC W/AUTO [id number] 06:51:00* Test Item Value Reference Range Interpretation [...] code = NRBC#) 0.00 K/mm3 0.0-0.1 N [id number] 20:46:00* Test Item Value Reference Range Interpretation Comments GLUBED (test code = GLUBED) 257 mg/dL 74-106 H Performed by certified vacuum drum drier operator at [facility] - XR CHEST 1 [id number] 18:25:00 FAX: Alfa Moscoso MD [phone] [place]: B St: [facility] FAX: Benjamin Francis MD [phone] Name: KALYANI TALAVERA [facility] : 1955 Age/S: 64/F [address] Unit #: [id number] Loc: V.3042 [place] [address] Phys: Alfa Cassidy MD Acct: [id number] Dis Date: Status: ADM IN PHONE #: [phone] Exam Date: 01/11/20201824 FAX #: [phone] Reason: CHF EXAMS: CPT CODE: [id number] XR CHEST 1 V 10485 REASON FOR EXAM: CHF Exam Order Date: [...] volumes with findings of CHF. Location: [facility] at 1825 Reported and signed by: Dago Goodson MD CC: Alfa Cassidy MD; Benjamin Masters Technologist: SCOOBY PARSONS RT(R); TAWANNA HURTADO RT(R) Trnscrd Date/Time/By: 01/11/2020 (1824) : By: [email or web address] Orig Print D/T: S: 01/11/2020 (1827) PAGE 1 Signed Report [id number] 16:50:00* Test Item Value Reference Range Interpretation Comments GLUBED (test code = GLUBED) 262 mg/dL 74-106 H Performed by certified vacuum drum drier operator at [facility] [id number] 12:17:00* Test Item Value Reference Range Interpretation Comments GLUBED (test code = GLUBED) 348 mg/dL 74-106 H Performed by certified vacuum drum drier operator at [facility] [id number] 08:51:00* Test Item Value Reference Range Interpretation Comments GLUBED (test code = GLUBED) 361 mg/dL 74-106 H Performed by certified vacuum drum drier operator at [facility] BRONCH LAVAGE FLD CELL [id number] 22:17:00* Test Item Value Reference Range Interpretation [...] REVIEWED BY (test code = REVIEW) PATHOLOGIST [id number] 20:37:00* Test Item Value Reference Range Interpretation Comments GLUBED (test code = GLUBED) 334 mg/dL 74-106 H Performed by certified vacuum drum drier operator at [facility] [id number] 17:59:00* Test Item Value Reference Range Interpretation Comments GLUBED (test code = GLUBED) 310 mg/dL 74-106 H Performed by certified vacuum drum drier operator at [facility] [id number] 13:51:00* Test Item Value Reference Range Interpretation Comments GLUBED (test code = GLUBED) 260 mg/dL 74-106 H Performed by certified vacuum drum drier operator at [facility] BASIC METABOLIC [id number] 10:17:00* Test Item Value Reference Range Interpretation [...] CA) 8.6 mg/dL 8.5-10.1 N BASIC METABOLIC [id number] 10:13:00* Test Item Value Reference Range Interpretation [...] CALCIUM (test code = CA) mg/dL 8.5-10.1 [id number] 08:31:00* Test Item Value Reference Range Interpretation Comments GLUBED (test code = GLUBED) 191 mg/dL 74-106 H Performed by certified vacuum drum drier operator at [facility] CBC W/AUTO [id number] 07:02:00* Test Item Value Reference Range Interpretation [...] = MDIFF) NO, ONLY SCAN NEEDED DIFFERENTIAL [id number] 07:02:00* Test Item Value Reference Range Interpretation Comments STAIN ACCEPTABILITY (test code = STN ACCEPTABLE) STAIN ACCEPTABLE POLYCHROMASIA (test code = POLC) 1+ ANISOCYTOSIS (test code = ANISO) 2+ MICROCYTOSIS (test code = MICR) 2+ MORPHOLOGY COMMENT (test code = MOC) TEST NOT PERFORMED PLATELET ESTIMATE (test code = PLTEST) ADEQUATE PLATELET MORPHOLOGY (test code = PLTMORPH) NORMAL COMPREHENSIVE METABOLIC [id number] 05:34:00* Test Item Value Reference Range Interpretation [...] due to change in reagent. CBC W/AUTO [id number] 05:30:00* Test Item Value Reference Range Interpretation [...] = MDIFF) NO, ONLY SCAN NEEDED DIFFERENTIAL [id number] 05:30:00* Test Item Value Reference Range Interpretation Comments STAIN ACCEPTABILITY (test code = STN ACCEPTABLE) CABOT RINGS (test code = CAB) MORPHOLOGY COMMENT (test code = MOC) PLATELET ESTIMATE (test code = PLTEST) PLATELET MORPHOLOGY (test code = PLTMORPH) CBC W/AUTO [id number] 05:30:00* Test Item Value Reference Range Interpretation [...] = MDIFF) NO, ONLY SCAN NEEDED DIFFERENTIAL [id number] 05:30:00* Test Item Value Reference Range Interpretation Comments STAIN ACCEPTABILITY (test code = STN ACCEPTABLE) CABOT RINGS (test code = CAB) MORPHOLOGY COMMENT (test code = MOC) PLATELET ESTIMATE (test code = PLTEST) PLATELET MORPHOLOGY (test code = PLTMORPH) CBC W/AUTO [id number] 05:30:00* Test Item Value Reference Range Interpretation [...] = MDIFF) NO, ONLY SCAN NEEDED DIFFERENTIAL [id number] 05:30:00* Test Item Value Reference Range Interpretation Comments STAIN ACCEPTABILITY (test code = STN ACCEPTABLE) MORPHOLOGY COMMENT (test code = MOC) PLATELET ESTIMATE (test code = PLTEST) PLATELET MORPHOLOGY (test code = PLTMORPH) CBC W/AUTO [id number] 05:30:00* Test Item Value Reference Range Interpretation [...] = MDIFF) NO, ONLY SCAN NEEDED DIFFERENTIAL [id number] 05:30:00* Test Item Value Reference Range Interpretation Comments STAIN ACCEPTABILITY (test code = STN ACCEPTABLE) CABOT RINGS (test code = CAB) MORPHOLOGY COMMENT (test code = MOC) PLATELET ESTIMATE (test code = PLTEST) PLATELET MORPHOLOGY (test code = PLTMORPH) COMPREHENSIVE METABOLIC [id number] 05:24:00* Test Item Value Reference Range Interpretation [...] TOTAL (test code = ALKP) IUnit/L 45-117 [id number] 20:32:00* Test Item Value Reference Range Interpretation Comments GLUBED (test code = GLUBED) 108 mg/dL 74-106 H Performed by certified vacuum drum drier operator at [facility] [id number] 16:44:00* Test Item Value Reference Range Interpretation Comments GLUBED (test code = GLUBED) 125 mg/dL 74-106 H Performed by certified vacuum drum drier operator at [facility] Coronavirus 2019 nCoV [id number] 16:38:00* Test Item Value Reference Range Interpretation Comments Coronavirus 2019 nCoV Bedside (test code = COVNONPUIBED) Negative [id number] 12:17:00* Test Item Value Reference Range Interpretation Comments GLUBED (test code = GLUBED) 171 mg/dL 74-106 H Performed by certified vacuum drum drier operator at [facility] [id number] 08:34:00* Test Item Value Reference Range Interpretation Comments GLUBED (test code = GLUBED) 341 mg/dL 74-106 H Performed by certified vacuum drum drier operator at [facility] - CT CHEST W/[id number] 06:53:00 Name: KALYANI TALAVERA [facility] : 1955 Age/S: 64 / F [address] [facility] Unit #: [id number] Loc: [place] [address] Phys: Rigo Alexander MD Acct: [id number] Dis Date: Status: ADM IN PHONE #: [phone] Exam Date: 01/08/2020 2249 FAX #: [phone] Reason: interstitial lung disease, pulmonary HTN EXAMS: CPT CODE: [id number] CT CHEST W/CONTRAST 68869 HISTORY: Interstitial lung disease and pulmonary hypertension. [...] MD; Alfa Cassidy MD; Benjamin Masters Technologist:RADHA GIBBONS RT(R)(CT); JORDEN CTDI: DLP: Trnscb Date/Time: 01/09/2020 (065 3) t.SDR.TH4 Orig Print D/T: S: 01/09/2020 (0656) YANETH VARGAS 1 Signed Report PROTHROMBIN [id number] 05:24:00* Test Item Value Reference Range Interpretation [...] (2.5-3.5) IS PATIENT ON ANTICOAGULANTS? NTHROMBOPLASTIN TIME [id number] 05:24:00* Test Item Value Reference Range Interpretation Comments THROMBOPLASTIN TIME PARTIAL (test code = PTT) 27.5 seconds 23.0-37. 0 N IS PATIENT ON ANTICOAGULANTS? [id number] 20:06:00* Test Item Value Reference Range Interpretation Comments GLUBED (test code = GLUBED) 162 mg/dL 74-106 H Performed by certified vacuum drum drier operator at [facility] [id number] 17:04:00* Test Item Value Reference Range Interpretation Comments GLUBED (test code = GLUBED) 135 mg/dL 74-106 H Performed by certified vacuum drum drier operator at [facility] [id number] 12:10:00* Test Item Value Reference Range Interpretation Comments GLUBED (test code = GLUBED) 375 mg/dL 74-106 H Performed by certified vacuum drum drier operator at [facility] [id number] 08:11:00* Test Item Value Reference Range Interpretation Comments GLUBED (test code = GLUBED) 259 mg/dL 74-106 H Performed by certified vacuum drum drier operator at [facility] CBC W/AUTO [id number] 05:20:00* Test Item Value Reference Range Interpretation [...] = MDIFF) NO, ONLY SCAN NEEDED DIFFERENTIAL [id number] 05:20:00* Test Item Value Reference Range Interpretation [...] (test code = PLTMORPH) NORMAL B-TYPE NATRIURETIC [id number] 05:03:00* Test Item Value Reference Range Interpretation Comments B-TYPE NATRIURETIC PEPTIDE (test code = BNP) 24.60 pgram/mL 0-100 N COMPREHENSIVE METABOLIC [id number] 04:59:00* Test Item Value Reference Range Interpretation [...] due to change in reagent. COMPREHENSIVE METABOLIC [id number] 04:50:00* Test Item Value Reference Range Interpretation [...] code = ALKP) IUnit/L 45-117 CBC W/AUTO [id number] 04:45:00* Test Item Value Reference Range Interpretation [...] = MDIFF) NO, ONLY SCAN NEEDED DIFFERENTIAL [id number] 04:45:00* Test Item Value Reference Range Interpretation Comments STAIN ACCEPTABILITY (test code = STN ACCEPTABLE) CABOT RINGS (test code = CAB) MORPHOLOGY COMMENT (test code = MOC) PLATELET ESTIMATE (test code = PLTEST) PLATELET MORPHOLOGY (test code = PLTMORPH) CBC W/AUTO [id number] 04:45:00* Test Item Value Reference Range Interpretation [...] = MDIFF) NO, ONLY SCAN NEEDED DIFFERENTIAL [id number] 04:45:00* Test Item Value Reference Range Interpretation Comments STAIN ACCEPTABILITY (test code = STN ACCEPTABLE) CABOT RINGS (test code = CAB) MORPHOLOGY COMMENT (test code = MOC) PLATELET ESTIMATE (test code = PLTEST) PLATELET MORPHOLOGY (test code = PLTMORPH) CBC W/AUTO [id number] 04:45:00* Test Item Value Reference Range Interpretation [...] = MDIFF) NO, ONLY SCAN NEEDED DIFFERENTIAL [id number] 04:45:00* Test Item Value Reference Range Interpretation Comments STAIN ACCEPTABILITY (test code = STN ACCEPTABLE) MORPHOLOGY COMMENT (test code = MOC) PLATELET ESTIMATE (test code = PLTEST) PLATELET MORPHOLOGY (test code = PLTMORPH) CBC W/AUTO [id number] 04:45:00* Test Item Value Reference Range Interpretation [...] = MDIFF) NO, ONLY SCAN NEEDED DIFFERENTIAL [id number] 04:45:00* Test Item Value Reference Range Interpretation Comments STAIN ACCEPTABILITY (test code = STN ACCEPTABLE) CABOT RINGS (test code = CAB) MORPHOLOGY COMMENT (test code = MOC) PLATELET ESTIMATE (test code = PLTEST) PLATELET MORPHOLOGY (test code = PLTMORPH) [id number] 23:24:00* Test Item Value Reference Range Interpretation Comments GLUBED (test code = GLUBED) 292 mg/dL 74-106 H Performed by certified vacuum drum drier operator at [facility] [id number] 19:46:00* Test Item Value Reference Range Interpretation Comments GLUBED (test code = GLUBED) 306 mg/dL 74-106 H Performed by certified vacuum drum drier operator at [facility] - XR CHEST 1 [id number] 19:39:00 FAX: Rigo Mccormick MD [phone] [place]: St: ADM FAX: Alfa Moscoso MD [phone] FAX: Benjamin Francis MD [phone] Name: KALYANI TALAVERA [facility] : 1955 Age/S: 64/F [address] Unit #: [id number] Loc: V.3042 [place] [address] Phys: Rigo Alexander MD Acct: [id number] Dis Date: Status: ADM IN [facility] #: [phone] Exam Date: 01/07/2020 183 FAX #: [phone] Reason: chf EXAMS: CPT CODE: [id number] XR CHEST 1 V 49864 EXAM: Chest x- ray, one view; INFORMATION: Shortness of breath, CHF; IMPRESSION: 1. Compared with yesterday's study, the left lung is sli ghtly better aerated; 2. No further significant changes; persist ent cardiomegaly and interstitial edema consistent with left heart failu re. Location code: [facility] Electronically Sig rainer by Gregory Bravo on 01/07/2020 at 193 Reported and signed by: Jc Bravo M.D. CC: Rigo Alexander MD; Alfa Cassidy MD; Benjamin Masters Technologist: ASH DavidR Trnscrd Date/Time/By: 01/07/2020 (1938) : By: Dannielle Orig Print D/T: S: 0 01/07/2020 (1941) PAGE 1 Signed Re port [id number] 16:14:00* Test Item Value Reference Range Interpretation Comments GLUBED (test code = GLUBED) 67 mg/dL 74-106 L Performed by certified vacuum drum drier operator at [facility] [id number] 11:11:00* Test Item Value Reference Range Interpretation Comments GLUBED (test code = GLUBED) 320 mg/dL 74-106 H Performed by certified vacuum drum drier operator at [facility] [id number] 07:56:00* Test Item Value Reference Range Interpretation Comments GLUBED (test code = GLUBED) 426 mg/dL 74-106 H Performed by certified vacuum drum drier operator at [facility] [id number] 20:36:00* Test Item Value Reference Range Interpretation Comments GLUBED (test code = GLUBED) > 500 mg/dL 74-106 HH Performed by certified vacuum drum drier operator [facility] HospitalNotified Nurse~ - US CHST W/[id number] 20:29:00 Name: KALYANI TALAVERA [facility] : 1955 Age/S: 64 / F [address] [facility] Unit #: [id number] Loc: [place] [address] Phys: Rigo Alexander MD Acct: [id number] Dis Date: Status: ADM IN PHONE #: [phone] Exam Date: 01/06/2020 1950 FAX #: [phone] Reason: pleural effusions EXAMS: CPT CODE: [id number] CHST W/MEDIASTINUM 62993 EXAM: Ultrasound of the chest; INFORMATION: Shortness of breath, pleural effusions? IMPRESSION: No sonographic evidence of pleural effusions. Location code: [facility] at 2028 Reported and signed by: Jc Bravo M.D. CC: Rigo Alexander MD; Benjamin Masters Technologist: Tamy Lanier RDMS Trnscb Date/Time: 01/06/2020 (2028) Dannielle Orig Print D/T: S: 01/06/2020 (2031) Probe: PAGE 1 Signed Report [id number] 18:13:00* Test Item Value Reference Range Interpretation Comments GLUBED (test code = GLUBED) > 500 mg/dL 74-106 HH Performed by certified vacuum drum drier operator [facility] Notified~ [id number] 16:16:00* Test Item Value Reference Range Interpretation Comments GLUBED (test code = GLUBED) > 500 mg/dL 74-106 HH Performed by certified vacuum drum drier operator [facility] Notified~ [id number] 13:43:00* Test Item Value Reference Range Interpretation Comments TROPONIN-I (test code = TROPI) <0.015 ng/mL 0-0.045 N COMMENTS TO SEASONAL [place] BUNDLER: COLLECT 3 HOURS AFTER PREVIOUS SAMPLEB-TYPE NATRIURETIC [id number] 10:13:00* Test Item Value Reference Range Interpretation Comments B-TYPE NATRIURETIC PEPTIDE (test code = BNP) 44.58 pgram/mL 0-100 N BASIC METABOLIC [id number] 06:56:00* Test Item Value Reference Range Interpretation [...] code = CA) 8.8 mg/dL 8.5-10.1 N [id number] 06:56:00* Test Item Value Reference Range Interpretation Comments TROPONIN-I (test code = TROPI) <0.015 ng/mL 0-0.045 N BASIC METABOLIC [id number] 06:43:00* Test Item Value Reference Range Interpretation [...] CALCIUM (test code = CA) mg/dL 8.5-10.1 [id number] 06:43:00* Test Item Value Reference Range Interpretation Comments TROPONIN-I (test code = TROPI) ng/mL 0-0.045 CBC W/O [id number] 06:22:00* Test Item Value Reference Range Interpretation [...] fL 6.7-11.0 N - XR CHEST 1 [id number] 06:03:00 FAX: Colton Khalil MD [phone] [place]: B St: REG FAX: Benjamin Francis MD [phone] Name: KALYANI TALAVERA [facility] : 1955 Age/S: 64/F [address] Unit #: [id number] Loc: [place] [address] Phys: Colton Khalil MD Acct: [id number] Dis Date: Status: REG ER PHONE #: [phone] Exam Date: 01/06/2020 0539 FAX #: [phone] Reason: Shortness of Breath EXAMS: CPT CODE: [id number] XR CHEST 1 V 36197 HISTORY: Shortness of breath Location: C3 COMPARISON:12/23/2019 FINDINGS: There is cardiomegaly with vascular congestion perihilar opacity. No pneumothorax. No other changes compared to prior study. IMPRESSION: 1. Findings of CHF/volume overload increased compared to prior exam. at 0603 Reported and signed by: Kizzy Dietrich MD CC: Colton Khalil MD; Benjamin Masters Technologist: Kizzy Cisse RT(R) Trnscrd Date/Time/By: 01/06/2020 (602) : By: [email or web address] Orig Print D/T: S: 01/06/2020 (06) PAGE 1 Signed Report [id number] 07:49:00* Test Item Value Reference Range Interpretation Comments GLUBED (test code = GLUBED) 237 mg/dL 74-106 H Performed by certified vacuum drum drier operator at [facility] BASIC METABOLIC [id number] 05:57:00* Test Item Value Reference Range Interpretation [...] CA) 8.5 mg/dL 8.5-10.1 N BASIC METABOLIC [id number] 05:49:00* Test Item Value Reference Range Interpretation [...] CALCIUM (test code = CA) mg/dL 8.5-10.1 [id number] 20:28:00* Test Item Value Reference Range Interpretation Comments GLUBED (test code = GLUBED) 211 mg/dL 74-106 H Performed by certified vacuum drum drier operator at [facility] [id number] 17:59:00* Test Item Value Reference Range Interpretation Comments GLUBED (test code = GLUBED) 254 mg/dL 74-106 H Performed by certified vacuum drum drier operator at [facility] [id number] 17:59:00* Test Item Value Reference Range Interpretation Comments GLUBED (test code = GLUBED) 259 mg/dL 74-106 H Performed by certified vacuum drum drier operator at [facility] BASIC METABOLIC [id number] 11:13:00* Test Item Value Reference Range Interpretation [...] CA) 8.2 mg/dL 8.5-10.1 L BASIC METABOLIC [id number] 11:08:00* Test Item Value Reference Range Interpretation [...] CALCIUM (test code = CA) mg/dL 8.5-10.1 [id number] 08:42:00* Test Item Value Reference Range Interpretation Comments GLUBED (test code = GLUBED) 195 mg/dL 74-106 H Performed by certified vacuum drum drier operator at [facility] [id number] 20:18:00* Test Item Value Reference Range Interpretation Comments GLUBED (test code = GLUBED) 238 mg/dL 74-106 H Performed by certified vacuum drum drier operator at [facility] [id number] 16:32:00* Test Item Value Reference Range Interpretation Comments GLUBED (test code = GLUBED) 149 mg/dL 74-106 H Performed by certified vacuum drum drier operator at [facility] [id number] 12:15:00* Test Item Value Reference Range Interpretation Comments GLUBED (test code = GLUBED) 189 mg/dL 74-106 H Performed by certified vacuum drum drier operator at [facility] BASIC METABOLIC [id number] 09:00:00* Test Item Value Reference Range Interpretation [...] code = CA) 8.4 mg/dL 8.5-10.1 L [id number] 09:00:00* Test Item Value Reference Range Interpretation Comments MAGNESIUM (test code = MAG) 1.9 mg/dL 1.8-2.4 N [id number] 07:52:00* Test Item Value Reference Range Interpretation Comments GLUBED (test code = GLUBED) 251 mg/dL 74-106 H Performed by certified vacuum drum drier operator at [facility] [id number] 22:38:00* Test Item Value Reference Range Interpretation Comments GLUBED (test code = GLUBED) 157 mg/dL 74-106 H Performed by certified vacuum drum drier operator at [facility] [id number] 21:25:00* Test Item Value Reference Range Interpretation Comments GLUBED (test code = GLUBED) 154 mg/dL 74-106 H Performed by certified vacuum drum drier operator at [facility] [id number] 16:46:00* Test Item Value Reference Range Interpretation Comments GLUBED (test code = GLUBED) 156 mg/dL 74-106 H Performed by certified vacuum drum drier operator at [facility] [id number] 10:44:00* Test Item Value Reference Range Interpretation Comments GLUBED (test code = GLUBED) 240 mg/dL 74-106 H Performed by certified vacuum drum drier operator at [facility] [id number] 07:55:00* Test Item Value Reference Range Interpretation Comments GLUBED (test code = GLUBED) 178 mg/dL 74-106 H Performed by certified vacuum drum drier operator at [facility] BASIC METABOLIC [id number] 06:00:00* Test Item Value Reference Range Interpretation [...] code = CA) 8.4 mg/dL 8.5-10.1 L [id number] 06:00:00* Test Item Value Reference Range Interpretation Comments MAGNESIUM (test code = MAG) 2.0 mg/dL 1.8-2.4 N [id number] 21:31:00* Test Item Value Reference Range Interpretation Comments GLUBED (test code = GLUBED) 461 mg/dL 74-106 H Performed by certified vacuum drum drier operator at [facility] [id number] 15:49:00* Test Item Value Reference Range Interpretation Comments GLUBED (test code = GLUBED) 400 mg/dL 74-106 H Performed by certified vacuum drum drier operator at [facility] [id number] 12:49:00* Test Item Value Reference Range Interpretation Comments GLUBED (test code = GLUBED) 339 mg/dL 74-106 H Performed by certified vacuum drum drier operator at [facility] [id number] 07:41:00* Test Item Value Reference Range Interpretation Comments GLUBED (test code = GLUBED) 328 mg/dL 74-106 H Performed by certified vacuum drum drier operator at [facility] BASIC METABOLIC [id number] 05:42:00* Test Item Value Reference Range Interpretation [...] CA) 8.5 mg/dL 8.5-10.1 N BASIC METABOLIC [id number] 05:33:00* Test Item Value Reference Range Interpretation [...] CALCIUM (test code = CA) mg/dL 8.5-10.1 [id number] 03:29:00* Test Item Value Reference Range Interpretation Comments GLUBED (test code = GLUBED) 221 mg/dL 74-106 H Performed by certified vacuum drum drier operator at [facility] [id number] 20:20:00* Test Item Value Reference Range Interpretation Comments GLUBED (test code = GLUBED) 406 mg/dL 74-106 H Performed by certified vacuum drum drier operator at [facility] [id number] 18:02:00* Test Item Value Reference Range Interpretation Comments TROPONIN-I (test code = TROPI) <0.015 ng/mL 0-0.045 N COMMENTS TO SEASONAL [place] BUNDLER: COLLECT 3 HOURS AFTER PREVIOUS [id number] 17:46:00* Test Item Value Reference Range Interpretation Comments MAGNESIUM (test code = MAG) 2.0 mg/dL 1.8-2.4 N [id number] 17:35:00* Test Item Value Reference Range Interpretation Comments GLUBED (test code = GLUBED) 363 mg/dL 74-106 H Performed by certified vacuum drum drier operator at [facility] [id number] 13:25:00* Test Item Value Reference Range Interpretation Comments TROPONIN-I (test code = TROPI) <0.015 ng/mL 0-0.045 N COMMENTS TO SEASONAL [place] BUNDLER: COLLECT 3 HOURS AFTER PREVIOUS SAMPLEURINALYSIS [id number] 10:05:00* Test Item Value Reference Range Interpretation [...] #/HPF NONE A Urine Source? Clean CatchURINALYSIS [id number] 10:05:00* Test Item Value Reference Range Interpretation [...] A Urine Source? Clean CatchCoronavirus 2018 nCoV [id number] 07:24:00* Test Item Value Reference Range Interpretation Comments Coronavirus 2018 nCoV Bedside (test code = [id number]) Negative Is patient requiring admission or transfer? [...] = MDIFF) NO, ONLY SCAN NEEDED DIFFERENTIAL [id number] 07:22:00* Test Item Value Reference Range Interpretation Comments STAIN ACCEPTABILITY (test code = STN ACCEPTABLE) STAIN ACCEPTABLE POLYCHROMASIA (test code = POLC) 1+ POIKILOCYTOSIS (test code = POIK) 1+ ANISOCYTOSIS (test code = ANISO) 1+ MICROCYTOSIS (test code = MICR) 1+ PLATELET ESTIMATE (test code = PLTEST) DECREASED PLATELET MORPHOLOGY (test code = PLTMORPH) NORMAL B-TYPE NATRIURETIC [id number] 07:19:00* Test Item Value Reference Range Interpretation Comments B-TYPE NATRIURETIC PEPTIDE (test code = BNP) 38.62 pgram/mL 0-100 N BASIC METABOLIC [id number] 06:41:00* Test Item Value Reference Range Interpretation [...] CA) 8.7 mg/dL 8.5-10.1 N HEPATIC FUNCTION [id number] 06:41:00* Test Item Value Reference Range Interpretation [...] reference range due to change in reagent. [id number] 06:41:00* Test Item Value Reference Range Interpretation Comments LIPASE (test code = LIP) 91 U/L 73.0-393.0 N [id number] 06:41:00* Test Item Value Reference Range Interpretation Comments TROPONIN-I (test code = TROPI) <0.015 ng/mL 0-0.045 N PROTHROMBIN [id number] 06:31:00* Test Item Value Reference Range Interpretation [...] (2.5-3.5) IS PATIENT ON ANTICOAGULANTS? NTHROMBOPLASTIN TIME [id number] 06:31:00* Test Item Value Reference Range Interpretation Comments THROMBOPLASTIN TIME PARTIAL (test code = PTT) 30.8 seconds 23.0-37. 0 N IS PATIENT ON ANTICOAGULANTS? NCBC W/AUTO [id number] 06:30:00* Test Item Value Reference Range Interpretation [...] = MDIFF) NO, ONLY SCAN NEEDED DIFFERENTIAL [id number] 06:30:00* Test Item Value Reference Range Interpretation Comments STAIN ACCEPTABILITY (test code = STN ACCEPTABLE) CABOT RINGS (test code = CAB) MORPHOLOGY COMMENT (test code = MOC) PLATELET ESTIMATE (test code = PLTEST) PLATELET MORPHOLOGY (test code = PLTMORPH) BASIC METABOLIC [id number] 06:30:00* Test Item Value Reference Range Interpretation [...] code = CA) mg/dL 8.5-10.1 HEPATIC FUNCTION [id number] 06:30:00* Test Item Value Reference Range Interpretation [...] TOTAL (test code = ALKP) IUnit/L 45-117 [id number] 06:30:00* Test Item Value Reference Range Interpretation Comments LIPASE (test code = LIP) U/L 73.0-393.0 [id number] 06:30:00* Test Item Value Reference Range Interpretation Comments TROPONIN-I (test code = TROPI) ng/mL 0-0.045 CBC W/AUTO [id number] 06:30:00* Test Item Value Reference Range Interpretation [...] = MDIFF) NO, ONLY SCAN NEEDED DIFFERENTIAL [id number] 06:30:00* Test Item Value Reference Range Interpretation Comments STAIN ACCEPTABILITY (test code = STN ACCEPTABLE) CABOT RINGS (test code = CAB) MORPHOLOGY COMMENT (test code = MOC) PLATELET ESTIMATE (test code = PLTEST) PLATELET MORPHOLOGY (test code = PLTMORPH) CBC W/AUTO [id number] 06:30:00* Test Item Value Reference Range Interpretation [...] = MDIFF) NO, ONLY SCAN NEEDED DIFFERENTIAL [id number] 06:30:00* Test Item Value Reference Range Interpretation Comments STAIN ACCEPTABILITY (test code = STN ACCEPTABLE) MORPHOLOGY COMMENT (test code = MOC) PLATELET ESTIMATE (test code = PLTEST) PLATELET MORPHOLOGY (test code = PLTMORPH) CBC W/AUTO [id number] 06:30:00* Test Item Value Reference Range Interpretation [...] = MDIFF) NO, ONLY SCAN NEEDED DIFFERENTIAL [id number] 06:30:00* Test Item Value Reference Range Interpretation Comments STAIN ACCEPTABILITY (test code = STN ACCEPTABLE) CABOT RINGS (test code = CAB) MORPHOLOGY COMMENT (test code = MOC) PLATELET ESTIMATE (test code = PLTEST) PLATELET MORPHOLOGY (test code = PLTMORPH) - XR CHEST 1 [id number] 05:45:00 FAX: Benjamin Francis MD [phone] [place]: B St: [facility] FAX: Leonora Norton [phone] Name: KALYANI TALAVERA [facility] : 1955 Age/S: 64/F [address] Unit #: [id number] Loc: [place] [address] Phys: Leonora Goins MD Acct: [id number] Dis Date: Status: REG ER PHONE #: [phone] Exam Date: 12/23/2019 05 FAX #: [phone] Reason: SHORTNESS OF BREATH EXAMS: CPT CODE: [id number] XR CHEST 1 V 41172 AFTER HOURS SERVICE ON: 12/23/2019 5:44 AM [...] Technologist: SUSAN HAMMONDS JR Trnscrd Date/Time/By: 12/23/2019 (0549) : By: [email or web address] Orig Print D/T: S: 12/23/2019 (2360) PAGE 1 Signed Report B-TYPE NATRIURETIC [id number] 05:44:00* Test Item Value Reference Range Interpretation Comments B-TYPE NATRIURETIC PEPTIDE (test code = BNP) 38.94 pgram/mL 0-100 N Coronavirus 2019 nCoV [id number] 04:56:00* Test Item Value Reference Range Interpretation Comments Coronavirus 2019 nCoV Bedside (test code = [id number]) Negative Is patient requiring admission or transfer? YIndication for rapid COVID-19 testi ng: Mod Clinical SuspicionBASIC METABOLIC [id number] 04:48:00* Test Item Value Reference Range Interpretation [...] code = CA) 8.8 mg/dL 8.5-10.1 N [id number] 04:48:00* Test Item Value Reference Range Interpretation Comments TROPONIN-I (test code = TROPI) <0.015 ng/mL 0-0.045 N CBC W/O [id number] 04:39:00* Test Item Value Reference Range Interpretation [...] MPV) 10.6 fL 6.7-11.0 N BASIC METABOLIC [id number] 04:37:00* Test Item Value Reference Range Interpretation [...] CALCIUM (test code = CA) mg/dL 8.5-10.1 [id number] 04:37:00* Test Item Value Reference Range Interpretation Comments TROPONIN-I (test code = TROPI) ng/mL 0-0.045 - XR CHEST 1 [id number] 03:58:00 FAX: Benjamin Francis MD [phone] [place]: St: REG FAX: Vince Jones DO Name: KALYANI TALAVERA [facility] : 1955 Age/S: 64/F [address] Unit #: [id number] Loc: [place] [address] Phys: Vince Jones DO Acct: [id number] Dis Date: Status: REG ER PHONE #: [phone] Exam Date: 12/16/2019 0345 FAX #: [phone] Reason: Shortness of Breath EXAMS: CPT CODE: [id number] XR CHEST 1 V 11497 EXAM: - XR CHEST 1 V HISTORY: [...] CC: Benjamin Masters; Vince Jones DO Technologist: SAMPSON VALDEZ) Ifeanyi garcia Date/Time/By: 12/16/2019 (0358) : By: [email or web address] Orig Print D/T: S : 12/16/2019 (040) PAGE 1 Signed Report B-TYPE NATRIURETIC [id number] 03:51:00* Test Item Value Reference Range Interpretation Comments B-TYPE NATRIURETIC PEPTIDE (test code = BNP) 93.94 pgram/mL 0-100 N BASIC METABOLIC [id number] 03:42:00* Test Item Value Reference Range Interpretation [...] code = CA) 8.9 mg/dL 8.5-10.1 N [id number] 03:42:00* Test Item Value Reference Range Interpretation Comments TROPONIN-I (test code = TROPI) <0.015 ng/mL 0-0.045 N - XR CHEST 1 [id number] 03:13:00 FAX: Jani Roque [phone] [place]: St: [facility] FAX: Y Benjamin Masters MD [phone] Name: KALYANI TALAVERA [facility] : 1955 Age/S: 64/F [address] [facility] Unit #: [id number] Loc: [place] [address] Phys: Jani Roque MD Acct: [id number] Dis Date: Status: REG ER PHONE #: [phone] Exam Date: 12/12/2019 023 FAX #: [phone] Reason: Shortness of Breath EXAMS: CPT CODE: [id number] XR CHEST 1 V 84010 - XR CHEST 1 V, 12/12/2019 2:26 [...] Brunner M.D. CC: Jani Roque MD; Benjamin Mastersologist: JORDEN MERCADO RT Trnscrd Date/Time/By: 12/12/2019 (0313) : By: [email or web address] Orig Print D/T: S: 12/12/2019 (315) PAGE 1 Signed Report PROTHROMBIN [id number] 03:11:00* Test Item Value Reference Range Interpretation [...] (2.5-3.5) IS PATIENT ON ANTICOAGULANTS? NTHROMBOPLASTIN TIME [id number] 03:11:00* Test Item Value Reference Range Interpretation Comments THROMBOPLASTIN TIME PARTIAL (test code = PTT) 33.6 seconds 23.0-37. 0 N IS PATIENT ON ANTICOAGULANTS? NBASIC METABOLIC [id number] 03:05:00* Test Item Value Reference Range Interpretation [...] code = CA) 8.9 mg/dL 8.5-10.1 N [id number] 03:05:00* Test Item Value Reference Range Interpretation Comments TROPONIN-I (test code = TROPI) ng/mL 0-0.045 CBC W/O [id number] 02:54:00* Test Item Value Reference Range Interpretation [...] code = MPV) 10.0 fL 6.7-11.0 N [id number] 15:43:00* Test Item Value Reference Range Interpretation Comments GLUBED (test code = GLUBED) 157 mg/dL 74-106 H Performed by certified vacuum drum drier operator at [facility] BASIC METABOLIC [id number] 14:27:00* Test Item Value Reference Range Interpretation [...] CA) 8.5 mg/dL 8.5-10.1 N BASIC METABOLIC [id number] 14:23:00* Test Item Value Reference Range Interpretation [...] code = CA) 8.5 mg/dL 8.5-10.1 N [id number] 11:31:00* Test Item Value Reference Range Interpretation Comments GLUBED (test code = GLUBED) 92 mg/dL 74-106 N Performed by certified vacuum drum drier operator at [facility] [id number] 07:50:00* Test Item Value Reference Range Interpretation Comments GLUBED (test code = GLUBED) 172 mg/dL 74-106 H Performed by certified vacuum drum drier operator at [facility] [id number] 00:32:00* Test Item Value Reference Range Interpretation Comments GLUBED (test code = GLUBED) 71 mg/dL 74-106 L Performed by certified vacuum drum drier operator at [facility] [id number] 21:13:00* Test Item Value Reference Range Interpretation Comments GLUBED (test code = GLUBED) 110 mg/dL 74-106 H Performed by certified vacuum drum drier operator at [facility] [id number] 16:45:00* Test Item Value Reference Range Interpretation Comments GLUBED (test code = GLUBED) 192 mg/dL 74-106 H Performed by certified vacuum drum drier operator [facility]~ BASIC METABOLIC [id number] 15:12:00* Test Item Value Reference Range Interpretation [...] code = CA) 8.3 mg/dL 8.5-10.1 L [id number] 15:12:00* Test Item Value Reference Range Interpretation Comments MAGNESIUM (test code = MAG) 2.2 mg/dL 1.8-2.4 N BASIC METABOLIC [id number] 15:07:00* Test Item Value Reference Range Interpretation [...] CALCIUM (test code = CA) mg/dL 8.5-10.1 [id number] 15:07:00* Test Item Value Reference Range Interpretation Comments MAGNESIUM (test code = MAG) mg/dL 1.8-2.4 [id number] 13:08:00* Test Item Value Reference Range Interpretation Comments GLUBED (test code = GLUBED) 107 mg/dL 74-106 H Performed by certified vacuum drum drier operator [facility]~ [id number] 08:18:00* Test Item Value Reference Range Interpretation Comments GLUBED (test code = GLUBED) 184 mg/dL 74-106 H Performed by certified vacuum drum drier operator [facility]~ [id number] 06:54:00* Test Item Value Reference Range Interpretation Comments GLUBED (test code = GLUBED) 141 mg/dL 74-106 H Performed by certified vacuum drum drier operator at [facility] [id number] 20:59:00* Test Item Value Reference Range Interpretation Comments GLUBED (test code = GLUBED) 100 mg/dL 74-106 N Performed by certified vacuum drum drier operator at [facility] [id number] 17:20:00* Test Item Value Reference Range Interpretation Comments GLUBED (test code = GLUBED) 152 mg/dL 74-106 H Performed by certified vacuum drum drier operator [facility]~ [id number] 16:08:00* Test Item Value Reference Range Interpretation Comments GLUBED (test code = GLUBED) 223 mg/dL 74-106 H Performed by certified vacuum drum drier operator at [facility] [id number] 12:35:00* Test Item Value Reference Range Interpretation Comments GLUBED (test code = GLUBED) 262 mg/dL 74-106 H Performed by certified vacuum drum drier operator at [facility] [id number] 08:13:00* Test Item Value Reference Range Interpretation Comments GLUBED (test code = GLUBED) 86 mg/dL 74-106 N Performed by certified vacuum drum drier operator at [facility] [id number] 23:34:00* Test Item Value Reference Range Interpretation Comments GLUBED (test code = GLUBED) 294 mg/dL 74-106 H Performed by certified vacuum drum drier operator at [facility] [id number] 20:47:00* Test Item Value Reference Range Interpretation Comments GLUBED (test code = GLUBED) 262 mg/dL 74-106 H Performed by certified vacuum drum drier operator at [facility] [id number] 16:20:00* Test Item Value Reference Range Interpretation Comments GLUBED (test code = GLUBED) 62 mg/dL 74-106 L Performed by certified vacuum drum drier operator at [facility] [id number] 12:23:00* Test Item Value Reference Range Interpretation Comments GLUBED (test code = GLUBED) 203 mg/dL 74-106 H Performed by certified vacuum drum drier operator at [facility] [id number] 08:24:00* Test Item Value Reference Range Interpretation Comments GLUBED (test code = GLUBED) 316 mg/dL 74-106 H Performed by certified vacuum drum drier operator at [facility] [id number] 20:06:00* Test Item Value Reference Range Interpretation Comments GLUBED (test code = GLUBED) 416 mg/dL 74-106 H Performed by certified vacuum drum drier operator at [facility] [id number] 15:45:00* Test Item Value Reference Range Interpretation Comments GLUBED (test code = GLUBED) 298 mg/dL 74-106 H Performed [facility] certified vacuum drum drier [facility]~ [id number] 12:18:00* Test Item Value Reference Range Interpretation Comments TROPONIN-I (test code = TROPI) <0.015 ng/mL 0-0.045 N COMMENTS TO SEASONAL [place] BUNDLER: COLLECT 3 HOURS AFTER PREVIOUS [id number] 07:57:00* Test Item Value Reference Range Interpretation Comments TROPONIN-I (test code = TROPI) <0.015 ng/mL 0-0.045 N COMMENTS TO SEASONAL [place] BUNDLER: COLLECT 3 HOURS AFTER PREVIOUS SAMPLEB-TYPE NATRIURETIC [id number] 01:27:00* Test Item Value Reference Range Interpretation Comments B-TYPE NATRIURETIC PEPTIDE (test code = BNP) 88.96 pgram/mL 0-100 N BASIC METABOLIC [id number] 00:47:00* Test Item Value Reference Range Interpretation [...] code = CA) 8.8 mg/dL 8.5-10.1 N [id number] 00:47:00* Test Item Value Reference Range Interpretation Comments TROPONIN-I (test code = TROPI) <0.015 ng/mL 0-0.045 N CBC W/O [id number] 00:42:00* Test Item Value Reference Range Interpretation [...] MPV) 10.8 fL 6.7-11.0 N BASIC METABOLIC [id number] 00:36:00* Test Item Value Reference Range Interpretation [...] code = CA) 8.8 mg/dL 8.5-10.1 N [id number] 00:36:00* Test Item Value Reference Range Interpretation Comments TROPONIN-I (test code = TROPI) ng/mL 0-0.045 - XR CHEST 1 [id number] 00:02:00 FAX: Russ Malcolm MD [phone] [place]: B St: [facility] FAX: Benjamin Francis MD [phone] Name: KALYANI TALAVERA [facility] : 1955 Age/S: 64/F [address] Unit #: [id number] Loc: [place] [address] Phys: Russ Malcolm MD Acct: [id number] Dis Date: Status: REG ER PHONE #: [phone] Exam Date: 12/03/2019 2351 FAX #: [phone] Reason: Shortness of Breath EXAMS: CPT CODE: [id number] XR CHEST 1 V 13193 Exam: AP chest Location: H 12 History: [...] S: 12/04/2019 (0005) PAGE 1 Signed Report [id number] 12:24:00* Test Item Value Reference Range Interpretation Comments GLUBED (test code = GLUBED) 151 mg/dL 74-106 H Performed by certified vacuum drum drier [facility]~ [id number] 08:12:00* Test Item Value Reference Range Interpretation Comments GLUBED (test code = GLUBED) 169 mg/dL 74-106 H Performed by certified vacuum drum drier operator [facility] BASIC METABOLIC [id number] 06:37:00* Test Item Value Reference Range Interpretation [...] code = CA) 8.9 mg/dL 8.5-10.1 N [id number] 20:42:00* Test Item Value Reference Range Interpretation Comments GLUBED (test code = GLUBED) 223 mg/dL 74-106 H Performed by certified vacuum drum drier operator at [facility] [id number] 16:09:00* Test Item Value Reference Range Interpretation Comments GLUBED (test code = GLUBED) 205 mg/dL 74-106 H Performed by certified vacuum drum drier operator at [facility] [id number] 11:35:00* Test Item Value Reference Range Interpretation Comments GLUBED (test code = GLUBED) 338 mg/dL 74-106 H Performed by certified vacuum drum drier operator at [facility] [id number] 08:04:00* Test Item Value Reference Range Interpretation Comments GLUBED (test code = GLUBED) 240 mg/dL 74-106 H Performed by certified vacuum drum drier operator at [facility] BASIC METABOLIC [id number] 07:18:00* Test Item Value Reference Range Interpretation [...] CA) 8.6 mg/dL 8.5-10.1 N BASIC METABOLIC [id number] 07:14:00* Test Item Value Reference Range Interpretation [...] CALCIUM (test code = CA) mg/dL 8.5-10.1 [id number] 20:28:00* Test Item Value Reference Range Interpretation Comments GLUBED (test code = GLUBED) 343 mg/dL 74-106 H Performed by certified vacuum drum drier operator at [facility] [id number] 16:32:00* Test Item Value Reference Range Interpretation Comments GLUBED (test code = GLUBED) 279 mg/dL 74-106 H Performed by certified vacuum drum drier operator at [facility] [id number] 11:49:00* Test Item Value Reference Range Interpretation Comments GLUBED (test code = GLUBED) 290 mg/dL 74-106 H Performed by certified vacuum drum drier operator at [facility] URINALYSIS [id number] 10:01:00* Test Item Value Reference Range Interpretation [...] FEW #/HPF NONE A Urine Source? MidstreamURINALYSIS [id number] 10:00:00* Test Item Value Reference Range Interpretation [...] = BACU) per HPF NONE Urine Source? [id number] 08:37:00* Test Item Value Reference Range Interpretation Comments GLUBED (test code = GLUBED) 260 mg/dL 74-106 H Performed by certified vacuum drum drier operator at [facility] [id number] 05:57:00* Test Item Value Reference Range Interpretation Comments GLUBED (test code = GLUBED) 253 mg/dL 74-106 H Performed by certified vacuum drum drier operator at [facility] BASIC METABOLIC [id number] 05:52:00* Test Item Value Reference Range Interpretation [...] CA) 8.8 mg/dL 8.5-10.1 N BASIC METABOLIC [id number] 05:49:00* Test Item Value Reference Range Interpretation [...] CALCIUM (test code = CA) mg/dL 8.5-10.1 [id number] 23:00:00* Test Item Value Reference Range Interpretation Comments GLUBED (test code = GLUBED) 108 mg/dL 74-106 H Performed by certified vacuum drum drier operator at [facility] [id number] 22:22:00* Test Item Value Reference Range Interpretation Comments GLUBED (test code = GLUBED) 111 mg/dL 74-106 H Performed by certified vacuum drum drier operator at [facility] URINALYSIS [id number] 20:09:00* Test Item Value Reference Range Interpretation [...] = BACU) FEW #/HPF NONE Urine Source? [id number] 16:18:00* Test Item Value Reference Range Interpretation Comments GLUBED (test code = GLUBED) 196 mg/dL 74-106 H Performed by certified vacuum drum drier operator at [facility] [id number] 12:03:00* Test Item Value Reference Range Interpretation Comments GLUBED (test code = GLUBED) 190 mg/dL 74-106 H Performed by certified vacuum drum drier operator at [facility] [id number] 08:22:00* Test Item Value Reference Range Interpretation Comments GLUBED (test code = GLUBED) 264 mg/dL 74-106 H Performed by certified vacuum drum drier operator [facility] BASIC METABOLIC [id number] 07:56:00* Test Item Value Reference Range Interpretation [...] CA) 8.6 mg/dL 8.5-10.1 N BASIC METABOLIC [id number] 05:39:00* Test Item Value Reference Range Interpretation [...] code = CA) mg/dL 8.5-10.1 CBC W/AUTO [id number] 05:19:00* Test Item Value Reference Range Interpretation [...] = MDIFF) NO, ONLY SCAN NEEDED DIFFERENTIAL [id number] 05:19:00* Test Item Value Reference Range Interpretation Comments STAIN ACCEPTABILITY (test code = STN ACCEPTABLE) STAIN ACCEPTABLE ANISOCYTOSIS (test code = ANISO) 2+ MICROCYTOSIS (test code = MICR) 2+ MORPHOLOGY COMMENT (test code = MOC) TEST NOT PERFORMED PLATELET ESTIMATE (test code = PLTEST) DECREASED PLATELET MORPHOLOGY (test code = PLTMORPH) NORMAL CBC W/AUTO [id number] 05:06:00* Test Item Value Reference Range Interpretation [...] = MDIFF) NO, ONLY SCAN NEEDED DIFFERENTIAL [id number] 05:06:00* Test Item Value Reference Range Interpretation Comments STAIN ACCEPTABILITY (test code = STN ACCEPTABLE) MORPHOLOGY COMMENT (test code = MOC) PLATELET ESTIMATE (test code = PLTEST) PLATELET MORPHOLOGY (test code = PLTMORPH) CBC W/AUTO [id number] 05:00:00* Test Item Value Reference Range Interpretation [...] = MDIFF) NO, ONLY SCAN NEEDED DIFFERENTIAL [id number] 05:00:00* Test Item Value Reference Range Interpretation Comments STAIN ACCEPTABILITY (test code = STN ACCEPTABLE) CABOT RINGS (test code = CAB) MORPHOLOGY COMMENT (test code = MOC) PLATELET ESTIMATE (test code = PLTEST) PLATELET MORPHOLOGY (test code = PLTMORPH) CBC W/AUTO [id number] 05:00:00* Test Item Value Reference Range Interpretation [...] = MDIFF) NO, ONLY SCAN NEEDED DIFFERENTIAL [id number] 05:00:00* Test Item Value Reference Range Interpretation Comments STAIN ACCEPTABILITY (test code = STN ACCEPTABLE) MORPHOLOGY COMMENT (test code = MOC) PLATELET ESTIMATE (test code = PLTEST) PLATELET MORPHOLOGY (test code = PLTMORPH) CBC W/AUTO [id number] 05:00:00* Test Item Value Reference Range Interpretation [...] = MDIFF) NO, ONLY SCAN NEEDED DIFFERENTIAL [id number] 05:00:00* Test Item Value Reference Range Interpretation Comments STAIN ACCEPTABILITY (test code = STN ACCEPTABLE) CABOT RINGS (test code = CAB) MORPHOLOGY COMMENT (test code = MOC) PLATELET ESTIMATE (test code = PLTEST) PLATELET MORPHOLOGY (test code = PLTMORPH) [id number] 20:25:00* Test Item Value Reference Range Interpretation Comments GLUBED (test code = GLUBED) 146 mg/dL 74-106 H Performed by certified vacuum drum drier operator at [facility] [id number] 15:10:00* Test Item Value Reference Range Interpretation Comments GLUBED (test code = GLUBED) 266 mg/dL 74-106 H Performed by certified vacuum drum drier operator at [facility] [id number] 11:49:00* Test Item Value Reference Range Interpretation Comments GLUBED (test code = GLUBED) 297 mg/dL 74-106 H Performed by certified vacuum drum drier operator at [facility] [id number] 07:56:00* Test Item Value Reference Range Interpretation Comments GLUBED (test code = GLUBED) 241 mg/dL 74-106 H Performed by certified vacuum drum drier operator at [facility] [id number] 20:49:00* Test Item Value Reference Range Interpretation Comments GLUBED (test code = GLUBED) 277 mg/dL 74-106 H Performed by certified vacuum drum drier operator [facility]~ [id number] 16:24:00* Test Item Value Reference Range Interpretation Comments GLUBED (test code = GLUBED) 114 mg/dL 74-106 H Performed by certified vacuum drum drier operator [facility]~ [id number] 12:12:00* Test Item Value Reference Range Interpretation Comments GLUBED (test code = GLUBED) 229 mg/dL 74-106 H Performed by certified vacuum drum drier operator [facility]~ [id number] 08:05:00* Test Item Value Reference Range Interpretation Comments GLUBED (test code = GLUBED) 359 mg/dL 74-106 H Performed by certified vacuum drum drier operator [facility] CBC W/AUTO [id number] 05:51:00* Test Item Value Reference Range Interpretation [...] = MDIFF) NO, ONLY SCAN NEEDED DIFFERENTIAL [id number] 05:51:00* Test Item Value Reference Range Interpretation [...] (test code = PLTMORPH) NORMAL COMPREHENSIVE METABOLIC [id number] 05:05:00* Test Item Value Reference Range Interpretation [...] due to change in reagent. COMPREHENSIVE METABOLIC [id number] 04:51:00* Test Item Value Reference Range Interpretation [...] code = ALKP) IUnit/L 45-117 CBC W/AUTO [id number] 04:41:00* Test Item Value Reference Range Interpretation [...] = MDIFF) NO, ONLY SCAN NEEDED DIFFERENTIAL [id number] 04:41:00* Test Item Value Reference Range Interpretation Comments STAIN ACCEPTABILITY (test code = STN ACCEPTABLE) CABOT RINGS (test code = CAB) MORPHOLOGY COMMENT (test code = MOC) PLATELET ESTIMATE (test code = PLTEST) PLATELET MORPHOLOGY (test code = PLTMORPH) CBC W/AUTO [id number] 04:41:00* Test Item Value Reference Range Interpretation [...] = MDIFF) NO, ONLY SCAN NEEDED DIFFERENTIAL [id number] 04:41:00* Test Item Value Reference Range Interpretation Comments STAIN ACCEPTABILITY (test code = STN ACCEPTABLE) CABOT RINGS (test code = CAB) MORPHOLOGY COMMENT (test code = MOC) PLATELET ESTIMATE (test code = PLTEST) PLATELET MORPHOLOGY (test code = PLTMORPH) CBC W/AUTO [id number] 04:41:00* Test Item Value Reference Range Interpretation [...] = MDIFF) NO, ONLY SCAN NEEDED DIFFERENTIAL [id number] 04:41:00* Test Item Value Reference Range Interpretation Comments STAIN ACCEPTABILITY (test code = STN ACCEPTABLE) MORPHOLOGY COMMENT (test code = MOC) PLATELET ESTIMATE (test code = PLTEST) PLATELET MORPHOLOGY (test code = PLTMORPH) CBC W/AUTO [id number] 04:41:00* Test Item Value Reference Range Interpretation [...] = MDIFF) NO, ONLY SCAN NEEDED DIFFERENTIAL [id number] 04:41:00* Test Item Value Reference Range Interpretation Comments STAIN ACCEPTABILITY (test code = STN ACCEPTABLE) CABOT RINGS (test code = CAB) MORPHOLOGY COMMENT (test code = MOC) PLATELET ESTIMATE (test code = PLTEST) PLATELET MORPHOLOGY (test code = PLTMORPH) [id number] 20:46:00* Test Item Value Reference Range Interpretation Comments GLUBED (test code = GLUBED) 242 mg/dL 74-106 H Performed by certified vacuum drum drier operator at [facility] [id number] 16:35:00* Test Item Value Reference Range Interpretation Comments GLUBED (test code = GLUBED) 345 mg/dL 74-106 H Performed by certified vacuum drum drier operator [facility]~ BASIC METABOLIC [id number] 09:05:00* Test Item Value Reference Range Interpretation [...] CA) 8.7 mg/dL 8.5-10.1 N BASIC METABOLIC [id number] 09:00:00* Test Item Value Reference Range Interpretation [...] CALCIUM (test code = CA) mg/dL 8.5-10.1 [id number] 08:20:00* Test Item Value Reference Range Interpretation Comments GLUBED (test code = GLUBED) 349 mg/dL 74-106 H Performed by certified vacuum drum drier operator [facility] CBC W/AUTO [id number] 06:48:00* Test Item Value Reference Range Interpretation [...] = MDIFF) NO, ONLY SCAN NEEDED DIFFERENTIAL [id number] 06:48:00* Test Item Value Reference Range Interpretation Comments STAIN ACCEPTABILITY (test code = STN ACCEPTABLE) STAIN ACCEPTABLE POLYCHROMASIA (test code = POLC) 2+ HYPOCHROMIA (test code = HYPO) 1+ ANISOCYTOSIS (test code = ANISO) 2+ MICROCYTOSIS (test code = MICR) 2+ PLATELET ESTIMATE (test code = PLTEST) DECREASED PLATELET MORPHOLOGY (test code = PLTMORPH) NORMAL COMPREHENSIVE METABOLIC [id number] 05:21:00* Test Item Value Reference Range Interpretation [...] due to change in reagent. COMPREHENSIVE METABOLIC [id number] 05:14:00* Test Item Value Reference Range Interpretation [...] code = ALKP) IUnit/L 45-117 CBC W/AUTO [id number] 05:08:00* Test Item Value Reference Range Interpretation [...] = MDIFF) NO, ONLY SCAN NEEDED DIFFERENTIAL [id number] 05:08:00* Test Item Value Reference Range Interpretation Comments STAIN ACCEPTABILITY (test code = STN ACCEPTABLE) CABOT RINGS (test code = CAB) MORPHOLOGY COMMENT (test code = MOC) PLATELET ESTIMATE (test code = PLTEST) PLATELET MORPHOLOGY (test code = PLTMORPH) CBC W/AUTO [id number] 05:08:00* Test Item Value Reference Range Interpretation [...] = MDIFF) NO, ONLY SCAN NEEDED DIFFERENTIAL [id number] 05:08:00* Test Item Value Reference Range Interpretation Comments STAIN ACCEPTABILITY (test code = STN ACCEPTABLE) CABOT RINGS (test code = CAB) MORPHOLOGY COMMENT (test code = MOC) PLATELET ESTIMATE (test code = PLTEST) PLATELET MORPHOLOGY (test code = PLTMORPH) CBC W/AUTO [id number] 05:08:00* Test Item Value Reference Range Interpretation [...] = MDIFF) NO, ONLY SCAN NEEDED DIFFERENTIAL [id number] 05:08:00* Test Item Value Reference Range Interpretation Comments STAIN ACCEPTABILITY (test code = STN ACCEPTABLE) MORPHOLOGY COMMENT (test code = MOC) PLATELET ESTIMATE (test code = PLTEST) PLATELET MORPHOLOGY (test code = PLTMORPH) CBC W/AUTO [id number] 05:08:00* Test Item Value Reference Range Interpretation [...] = MDIFF) NO, ONLY SCAN NEEDED DIFFERENTIAL [id number] 05:08:00* Test Item Value Reference Range Interpretation Comments STAIN ACCEPTABILITY (test code = STN ACCEPTABLE) CABOT RINGS (test code = CAB) MORPHOLOGY COMMENT (test code = MOC) PLATELET ESTIMATE (test code = PLTEST) PLATELET MORPHOLOGY (test code = PLTMORPH) [id number] 20:40:00* Test Item Value Reference Range Interpretation Comments GLUBED (test code = GLUBED) 160 mg/dL 74-106 H Performed by certified vacuum drum drier operator at [facility] Coronavirus 2019 nCoV [id number] 18:50:00* Test Item Value Reference Range Interpretation Comments Coronavirus 2019 nCoV Bedside (test code = [id number]) Negative [id number] 16:03:00* Test Item Value Reference Range Interpretation Comments GLUBED (test code = GLUBED) 310 mg/dL 74-106 H Performed by certified vacuum drum drier operator [facility]~ [id number] 11:57:00* Test Item Value Reference Range Interpretation Comments GLUBED (test code = GLUBED) 416 mg/dL 74-106 H Performed by certified vacuum drum drier operator [facility]~ [id number] 08:07:00* Test Item Value Reference Range Interpretation Comments GLUBED (test code = GLUBED) 356 mg/dL 74-106 H Performed by certified vacuum drum drier operator [facility]~ BASIC METABOLIC [id number] 04:53:00* Test Item Value Reference Range Interpretation [...] code = CA) 8.5 mg/dL 8.5-10.1 N [id number] 04:53:00* Test Item Value Reference Range Interpretation Comments MAGNESIUM (test code = MAG) 1.9 mg/dL 1.8-2.4 N [id number] 23:55:00* Test Item Value Reference Range Interpretation Comments GLUBED (test code = GLUBED) 391 mg/dL 74-106 H Performed by certified vacuum drum drier operator at [facility] [id number] 20:25:00* Test Item Value Reference Range Interpretation Comments GLUBED (test code = GLUBED) 452 mg/dL 74-106 H Performed by certified vacuum drum drier operator [facility]~ [id number] 20:15:00* Test Item Value Reference Range Interpretation Comments TROPONIN-I (test code = TROPI) <0.015 ng/mL 0-0.045 N COMMENTS TO SEASONAL [place] BUNDLER: COLLECT 3 HOURS AFTER PREVIOUS [id number] 17:14:00* Test Item Value Reference Range Interpretation Comments TROPONIN-I (test code = TROPI) <0.015 ng/mL 0-0.045 N COMMENTS TO SEAS[employer]AL [place] BUNDLER: COLLECT 3 HOURS AFTER PREVIOUS [id number] 15:52:00* Test Item Value Reference Range Interpretation Comments GLUBED (test code = GLUBED) 90 mg/dL 74-106 N Performed by certified vacuum drum drier operator at [facility] B-TYPE NATRIURETIC [id number] 10:43:00* Test Item Value Reference Range Interpretation Comments B-TYPE NATRIURETIC PEPTIDE (test code = BNP) 120.97 pgram/mL 0-100 H BASIC METABOLIC [id number] 10:37:00* Test Item Value Reference Range Interpretation [...] code = CA) 8.8 mg/dL 8.5-10.1 N [id number] 10:37:00* Test Item Value Reference Range Interpretation Comments TROPONIN-I (test code = TROPI) <0.015 ng/mL 0-0.045 N PROTHROMBIN [id number] 10:25:00* Test Item Value Reference Range Interpretation [...] (2.5-3.5) IS PATIENT ON ANTICOAGULANTS? NTHROMBOPLASTIN TIME [id number] 10:25:00* Test Item Value Reference Range Interpretation Comments THROMBOPLASTIN TIME PARTIAL (test code = PTT) 22.9 seconds 23.0-37. 0 L IS PATIENT ON ANTICOAGULANTS? NBASIC METABOLIC [id number] 10:22:00* Test Item Value Reference Range Interpretation [...] CALCIUM (test code = CA) mg/dL 8.5-10.1 [id number] 10:22:00* Test Item Value Reference Range Interpretation Comments TROPONIN-I (test code = TROPI) ng/mL 0-0.045 CBC W/O [id number] 10:15:00* Test Item Value Reference Range Interpretation [...] fL 6.7-11.0 N - XR CHEST 1 [id number] 10:04:00 FAX: Hardeep Douglas [phone] [place]: St: REG FAX: Benjamin Francis MD [phone] Name: KALYANI TALAVERA [facility] : 1955 Age/S: 64/F [address] [facility] Unit #: [id number] Loc: [place] [address] Phys: Hardeep Ann MD Acct: [id number] Dis Date: Status: REG ER PHONE #: [phone] Exam Date: 11/20/2019 09 FAX #: [phone] Reason: Shortness of Breath EXAMS: CPT CODE: [id number] XR CHEST 1 V 50315 REASON FOR EXAM: Shortness of Breath Exam Order Date: 11/20/2019 9:23 AM Ordering Gregory: Hardeep Ann MD PROCEDURE: - XR CHEST [...] elevation of the right hemidiaphragm. Location: [facility] at 1004 Reported and signed by: Dago Goodson MD CC: Hardeep Ann MD; Benjamin Masters Technologist: SUSAN HAMMONDS JR Trnscrd Date/Time/By: 0 (1004) : By: [email or web address] Orig Print D/T: S: 11/20/2019 (1007) PAGE 1 Signed Report BASIC METABOLIC [id number] 15:36:00* Test Item Value Reference Range Interpretation [...] CA) 8.5 mg/dL 8.5-10.1 N BASIC METABOLIC [id number] 15:32:00* Test Item Value Reference Range Interpretation [...] CALCIUM (test code = CA) mg/dL 8.5-10.1 [id number] 11:56:00* Test Item Value Reference Range Interpretation Comments GLUBED (test code = GLUBED) 268 mg/dL 74-106 H Performed by certified vacuum drum drier operator at [facility] [id number] 08:34:00* Test Item Value Reference Range Interpretation Comments GLUBED (test code = GLUBED) 213 mg/dL 74-106 H Performed by certified vacuum drum drier operator at [facility] COMPREHENSIVE METABOLIC [id number] 06:54:00* Test Item Value Reference Range Interpretation [...] due to change in reagent. COMPREHENSIVE METABOLIC [id number] 06:39:00* Test Item Value Reference Range Interpretation [...] TOTAL (test code = ALKP) IUnit/L 45-117 [id number] 19:31:00* Test Item Value Reference Range Interpretation Comments GLUBED (test code = GLUBED) 307 mg/dL 74-106 H Performed by certified vacuum drum drier operator at [facility] [facility] BASIC METABOLIC [id number] 16:35:00* Test Item Value Reference Range Interpretation [...] CA) 8.9 mg/dL 8.5-10.1 N BASIC METABOLIC [id number] 16:30:00* Test Item Value Reference Range Interpretation [...] CALCIUM (test code = CA) mg/dL 8.5-10.1 [id number] 15:31:00* Test Item Value Reference Range Interpretation Comments GLUBED (test code = GLUBED) 155 mg/dL 74-106 H Performed by certified vacuum drum drier operator at [facility] [id number] 11:44:00* Test Item Value Reference Range Interpretation Comments GLUBED (test code = GLUBED) 180 mg/dL 74-106 H Performed by certified vacuum drum drier operator at [facility] [id number] 08:05:00* Test Item Value Reference Range Interpretation Comments GLUBED (test code = GLUBED) 236 mg/dL 74-106 H Performed by certified vacuum drum drier operator at [facility] COMPREHENSIVE METABOLIC [id number] 04:48:00* Test Item Value Reference Range Interpretation [...] due to change in reagent. COMPREHENSIVE METABOLIC [id number] 04:35:00* Test Item Value Reference Range Interpretation [...] TOTAL (test code = ALKP) IUnit/L 45-117 [id number] 20:09:00* Test Item Value Reference Range Interpretation Comments GLUBED (test code = GLUBED) 126 mg/dL 74-106 H Performed by certified vacuum drum drier operator at [facility] [id number] 15:38:00* Test Item Value Reference Range Interpretation Comments GLUBED (test code = GLUBED) 241 mg/dL 74-106 H Performed by certified vacuum drum drier operator at [facility] [id number] 11:39:00* Test Item Value Reference Range Interpretation Comments GLUBED (test code = GLUBED) 406 mg/dL 74-106 H Performed by certified vacuum drum drier operator at [facility] [id number] 07:56:00* Test Item Value Reference Range Interpretation Comments GLUBED (test code = GLUBED) 318 mg/dL 74-106 H Performed by certified vacuum drum drier operator at [facility] COMPREHENSIVE METABOLIC [id number] 04:33:00* Test Item Value Reference Range Interpretation [...] due to change in reagent. COMPREHENSIVE METABOLIC [id number] 04:24:00* Test Item Value Reference Range Interpretation [...] TOTAL (test code = ALKP) IUnit/L 45-117 [id number] 22:02:00* Test Item Value Reference Range Interpretation Comments GLUBED (test code = GLUBED) 108 mg/dL 74-106 H Performed by certified vacuum drum drier operator at [facility] [id number] 19:58:00* Test Item Value Reference Range Interpretation Comments GLUBED (test code = GLUBED) 117 mg/dL 74-106 H Performed by certified vacuum drum drier operator at [facility] [id number] 11:46:00* Test Item Value Reference Range Interpretation Comments GLUBED (test code = GLUBED) 277 mg/dL 74-106 H Performed by certified vacuum drum drier operator at [facility] [id number] 11:46:00* Test Item Value Reference Range Interpretation Comments GLUBED (test code = GLUBED) 286 mg/dL 74-106 H Performed by certified vacuum drum drier operator at [facility] [id number] 04:37:00* Test Item Value Reference Range Interpretation Comments FERRITIN (test code = DESI) 14 ng/mL 8-388 N FE W/TOTAL IRON BINDING CAP.2019-10-21 04:28:00* Test Item Value Reference Range Interpretation Comments SERUM IRON (test code = IRON) 65 ug/dL 50-175 N TOTAL IRON BINDING CAPACITY (test code = TIBC) 532 mcg/dL 250-450 H IRON SATURATION (test code = FESAT) 12.22 % 13-45 L [id number] 03:52:00* Test Item Value Reference Range Interpretation Comments GLUBED (test code = GLUBED) 287 mg/dL 74-106 H [facility] [id number] 20:27:00* Test Item Value Reference Range Interpretation Comments GLUBED (test code = GLUBED) 132 mg/dL 74-106 H Per[facility] certified vacuum drum drier [facility] [id number] 17:34:00* Test Item Value Reference Range Interpretation Comments GLUBED (test code = GLUBED) 167 mg/dL 74-106 H Performed by certified vacuum drum drier operator at [facility] [id number] 12:06:00* Test Item Value Reference Range Interpretation Comments GLUBED (test code = GLUBED) 271 mg/dL 74-106 H Performed by certified vacuum drum drier operator at [facility] - XR CHEST 1 [id number] 08:35:00 FAX: Rigo Mccormick MD [phone] [place]: St: [facility] FAX: Benjamin Francis MD [phone] Name: KALYANI TALAVERA [facility] : 1955 Age/S: 64/F [address] Unit #: [id number] Loc: V.[address] [place] [address] Phys: Rigo Alexander MD Acct: [id number] Dis Date: Status: ADM IN PHONE #: [phone] Exam Date: 10/20/2019829 FAX #: [phone] Reason: chf EXAMS: CPT CODE: [id number] XR CHEST 1 V 21848 CLINICAL HISTORY: chf TECHNIQUE: AP chest x-ray [...] Masters Technologist: TAWANNA CLEMENTS(R) Trnscrd Date/Time/By: 10/20/2019 (834) : By: aniyah [email or web address] Orig Print D/T: S: 10/20/2019 (0838) P AGE 2 Signed Report GLUBED 2019-10-20 08:30:00* Test Item Value Reference Range Interpretation Comments GLUBED (test code = GLUBED) 234 mg/dL 74-106 H Performed by certified vacuum drum drier operator at [facility] CBC W/AUTO [id number] 05:46:00* Test Item Value Reference Range Interpretation [...] = MDIFF) NO, ONLY SCAN NEEDED DIFFERENTIAL [id number] 05:46:00* Test Item Value Reference Range Interpretation [...] (test code = PLTMORPH) NORMAL BASIC METABOLIC [id number] 05:36:00* Test Item Value Reference Range Interpretation [...] CA) 9.4 mg/dL 8.5-10.1 N BASIC METABOLIC [id number] 05:30:00* Test Item Value Reference Range Interpretation [...] code = CA) mg/dL 8.5-10.1 CBC W/AUTO [id number] 05:11:00* Test Item Value Reference Range Interpretation [...] = MDIFF) NO, ONLY SCAN NEEDED DIFFERENTIAL [id number] 05:11:00* Test Item Value Reference Range Interpretation Comments STAIN ACCEPTABILITY (test code = STN ACCEPTABLE) CABOT RINGS (test code = CAB) MORPHOLOGY COMMENT (test code = MOC) PLATELET ESTIMATE (test code = PLTEST) PLATELET MORPHOLOGY (test code = PLTMORPH) CBC W/AUTO [id number] 05:11:00* Test Item Value Reference Range Interpretation [...] = MDIFF) NO, ONLY SCAN NEEDED DIFFERENTIAL [id number] 05:11:00* Test Item Value Reference Range Interpretation Comments STAIN ACCEPTABILITY (test code = STN ACCEPTABLE) CABOT RINGS (test code = CAB) MORPHOLOGY COMMENT (test code = MOC) PLATELET ESTIMATE (test code = PLTEST) PLATELET MORPHOLOGY (test code = PLTMORPH) CBC W/AUTO [id number] 05:11:00* Test Item Value Reference Range Interpretation [...] = MDIFF) NO, ONLY SCAN NEEDED DIFFERENTIAL [id number] 05:11:00* Test Item Value Reference Range Interpretation Comments STAIN ACCEPTABILITY (test code = STN ACCEPTABLE) MORPHOLOGY COMMENT (test code = MOC) PLATELET ESTIMATE (test code = PLTEST) PLATELET MORPHOLOGY (test code = PLTMORPH) CBC W/AUTO [id number] 05:11:00* Test Item Value Reference Range Interpretation [...] = MDIFF) NO, ONLY SCAN NEEDED DIFFERENTIAL [id number] 05:11:00* Test Item Value Reference Range Interpretation Comments STAIN ACCEPTABILITY (test code = STN ACCEPTABLE) CABOT RINGS (test code = CAB) MORPHOLOGY COMMENT (test code = MOC) PLATELET ESTIMATE (test code = PLTEST) PLATELET MORPHOLOGY (test code = PLTMORPH) [id number] 19:55:00* Test Item Value Reference Range Interpretation Comments GLUBED (test code = GLUBED) 245 mg/dL 74-106 H Performed by certified vacuum drum drier operator at [facility] [id number] 17:25:00* Test Item Value Reference Range Interpretation Comments GLUBED (test code = GLUBED) 316 mg/dL 74-106 H Performed by certified vacuum drum drier operator at [facility] [id number] 12:03:00* Test Item Value Reference Range Interpretation Comments GLUBED (test code = GLUBED) 266 mg/dL 74-106 H Performed by certified vacuum drum drier operator at [facility] [id number] 11:55:00* Test Item Value Reference Range Interpretation Comments GLUBED (test code = GLUBED) 300 mg/dL 74-106 H Performed by certified vacuum drum drier operator at [facility] COMPREHENSIVE METABOLIC [id number] 04:36:00* Test Item Value Reference Range Interpretation [...] due to change in reagent. COMPREHENSIVE METABOLIC [id number] 04:25:00* Test Item Value Reference Range Interpretation [...] TOTAL (test code = ALKP) IUnit/L 45-117 [id number] 20:30:00* Test Item Value Reference Range Interpretation Comments GLUBED (test code = GLUBED) 202 mg/dL 74-106 H Performed by certified vacuum drum drier [facility]~ [id number] 18:41:00* Test Item Value Reference Range Interpretation Comments GLUBED (test code = GLUBED) 229 mg/dL 74-106 H Performed by certified vacuum drum drier operator at [facility] [id number] 15:56:00* Test Item Value Reference Range Interpretation Comments GLUBED (test code = GLUBED) 271 mg/dL 74-106 H Performed by certified vacuum drum drier operator at [facility] [id number] 15:00:00* Test Item Value Reference Range Interpretation Comments GLYCOSYLATED HEMOGLOBIN (HA1C) (test code = GLYHGB) 9.6 % HbA1 SUGGESTED DIAGNOSIS: HbA1C (%) Diabetic >6.4Prediabetes 5.7 - 6.4Normal <5.7 ESTIMATED AVERAGE GLUCOSE (test code = EAG) 229 MG/DL [id number] 11:26:00* Test Item Value Reference Range Interpretation Comments GLUBED (test code = GLUBED) 372 mg/dL 74-106 H Performed by certified vacuum drum drier operator at [facility] - XR CHEST 1 [id number] 08:31:00 FAX: Rigo Mccormick MD [phone] [place]: St: ADM FAX: Benjamin Francis MD [phone] Name: KALYANI TALAVERA [facility] : 1955 Age/S: 64/F [address] [facility] Unit #: [id number] Loc: [address] [place] [address] Phys: Rigo Alexander MD Acct: [id number] Dis Date: Status: ADM IN PHONE #: [phone] Exam Date: 10/18/2019 0801 FAX #: [phone] Reason: chf EXAMS: CPT CODE: [id number] XR CHEST 1 V 30016 REASON FOR EXAM: chf Exam Order Date: 10/18/2019 5:00 AM Ordering M.Ivelisse: Rigo Alexander MD PROCEDURE: - XR CHEST [...] IMPRESSION: No acute cardiopulmonary process. Location: [facility] Electronic ally Signed by Dago Goodson MD on 10/18/2019 at 0831 Repo rted and signed by: Dago Goodson MD CC: Rigo Alexander MD; Benjamin Masters Technologist: SUSAN HAMMONDS JR Trnscrd Date/Time/By: 10/18/2019 (830) : By: [email or web address] Orig Print D/T: S: 10/18/2019 (0874) PAGE 1 Signed Report [id number] 07:40:00 * Test Item Value Reference Range Interpretation Comments GLUBED (test code = GLUBED) 391 mg/dL 74-106 H Performed by certified vacuum drum drier operator at [facility] COMPREHENSIVE METABOLIC [id number] 04:54:00* Test Item Value Reference Range Interpretation [...] reference range due to change in reagent. [id number] 04:54:00* Test Item Value Reference Range Interpretation Comments MAGNESIUM (test code = MAG) 1.8 mg/dL 1.8-2.4 N COMPREHENSIVE METABOLIC [id number] 04:45:00* Test Item Value Reference Range Interpretation [...] TOTAL (test code = ALKP) IUnit/L 45-117 [id number] 04:45:00* Test Item Value Reference Range Interpretation Comments MAGNESIUM (test code = MAG) mg/dL 1.8-2.4 CBC W/AUTO [id number] 04:28:00* Test Item Value Reference Range Interpretation [...] code = NRBC#) 0.00 K/mm3 0.0-0.1 N [id number] 23:49:00* Test Item Value Reference Range Interpretation Comments TROPONIN-I (test code = TROPI) 0.024 ng/mL 0-0.045 N COMMENTS TO SEASONAL [employer] BUNDLER: COLLECT 3 HOURS AFTER PREVIOUS [id number] 20:30:00* Test Item Value Reference Range Interpretation Comments GLUBED (test code = GLUBED) 288 mg/dL 74-106 H Performed by certified vacuum drum drier operator at [facility] [id number] 19:35:00* Test Item Value Reference Range Interpretation Comments TROPONIN-I (test code = TROPI) 0.027 ng/mL 0-0.045 N COMMENTS TO SEASONAL [employer] BUNDLER: COLLECT 3 HOURS AFTER PREVIOUS SAMPLE- CT CHEST W/O [id number] 18:12:00 Name: KALYANI TALAVERA [facility] : 1955 Age/S: 64 / F [address] [facility] Unit #: [id number] Loc: [place] [address] Phys: Pravin Christianson MD Acct: [id number] Dis Date: Status: ADM IN PHONE #: [phone] Exam Date: 10/17/2019 1800 FAX #: [phone] Reason: Dyspnea, Crackles in bases EXAMS: CPT CODE: [id number] CT CHEST W/O CONTRAST 49151 HISTORY: Dyspnea and crackles in the base. [...] is no nspecific finding. Electronically Signed by Gergory Chowdhury on at 1812 Reported and signed by: Jodie Love CC: Pravin Christianson MD; Benjamin Masters Technsherri logist:Arianna Hendrix RT(R) CTDI: DLP: Trnscb Date/Time : 10/17/2019 (1811) t.[email or web address] PAGE 1 Signed Report [id number] 17:25:00* Test Item Value Reference Range Interpretation Comments MAGNESIUM (test code = MAG) 1.8 mg/dL 1.8-2.4 N [id number] 16:20:00* Test Item Value Reference Range Interpretation Comments GLUBED (test code = GLUBED) 221 mg/dL 74-106 H Performed by certified vacuum drum drier operator at [facility] B-TYPE NATRIURETIC [id number] 10:56:00* Test Item Value Reference Range Interpretation Comments B-TYPE NATRIURETIC PEPTIDE (test code = BNP) 58.67 pgram/mL 0-100 N BASIC METABOLIC [id number] 10:25:00* Test Item Value Reference Range Interpretation [...] code = CA) 8.6 mg/dL 8.5-10.1 N [id number] 10:25:00* Test Item Value Reference Range Interpretation Comments TROPONIN-I (test code = TROPI) 0.025 ng/mL 0-0.045 N BASIC METABOLIC [id number] 10:15:00* Test Item Value Reference Range Interpretation [...] CALCIUM (test code = CA) mg/dL 8.5-10.1 [id number] 10:15:00* Test Item Value Reference Range Interpretation Comments TROPONIN-I (test code = TROPI) ng/mL 0-0.045 CBC W/O [id number] 09:54:00* Test Item Value Reference Range Interpretation [...] fL 6.7-11.0 N - XR CHEST 1 [id number] 09:54:00 FAX: Patel Kulkarni MD [place]: St: PRE FAX: Benjamin Francis MD [phone] Name: KALYANI TALAVERA [facility] : 1955 Age/S: 64/F [address] Unit #: [id number] Loc: [place] [address] Phys: Patel Kulkarni MD Acct: [id number] Dis Date: Status: PRE ER PHONE #: [phone] Exam Date: 10/17/2019 0946 FAX #: [phone] Reason: Shortness of Breath EXAMS: CPT CODE: [id number] XR CHEST 1 V 86245 CLINICAL HISTORY: Shortness of Breath TECHNIQUE: AP [...] Technologist: Marci Leyva(Megan) Trnscrd Date/Time/By: 10/17/19 20 (0954) : By: [email or web address] Orig Print D/T: S: 10/17/2019 (6091) PAGE 1 Signed Report [id number] 15:30:00* Test Item Value Reference Range Interpretation Comments GLUBED (test code = GLUBED) 138 mg/dL 74-106 H Performed by certified vacuum drum drier operator at [facility] COMPREHENSIVE METABOLIC [id number] 14:28:00* Test Item Value Reference Range Interpretation [...] due to change in reagent. COMPREHENSIVE METABOLIC [id number] 14:18:00* Test Item Value Reference Range Interpretation [...] code = ALKP) IUnit/L 45-117 CBC W/AUTO [id number] 13:43:00* Test Item Value Reference Range Interpretation [...] NRBC#) 0.02 K/mm3 0.0-0.1 N CBC W/AUTO [id number] 13:37:00* Test Item Value Reference Range Interpretation [...] # (test code = BA#) K/mm3 0.0-0.2 [id number] 12:24:00* Test Item Value Reference Range Interpretation Comments GLUBED (test code = GLUBED) 142 mg/dL 74-106 H Performed by certified vacuum drum drier operator at [facility] [id number] 07:57:00* Test Item Value Reference Range Interpretation Comments GLUBED (test code = GLUBED) 221 mg/dL 74-106 H Performed by certified vacuum drum drier operator at [facility] - XR CHEST 1 [id number] 21:23:00 FAX: Alfa Moscoso MD [phone] [place]: St: [facility] FAX: Benjamin Francis MD [phone] Name: KALYANI TALAVERA [facility] : 1955 Age/S: 64/F [address] [facility] Unit #: [id number] Loc: [address] [address] Phys: Alfa Cassidy MD Acct: [id number] Dis Date: Status: ADM IN PHONE #: [phone] Exam Date: 09/07/20192048 FAX #: [phone] Reason: ACUTE CHF EXAMS: CPT CODE: [id number] XR CHEST 1 V 19717 CLINICAL HISTORY: ACUTE CHF TECHNIQUE: AP chest [...] S: 09/07/2019 (2125) PAGE 1 Signed Report [id number] 20:44:00* Test Item Value Reference Range Interpretation Comments GLUBED (test code = GLUBED) 176 mg/dL 74-106 H Performed by certified vacuum drum drier operator at [facility] CBC W/AUTO [id number] 17:54:00* Test Item Value Reference Range Interpretation [...] = MDIFF) NO, ONLY SCAN NEEDED DIFFERENTIAL [id number] 17:54:00* Test Item Value Reference Range Interpretation Comments STAIN ACCEPTABILITY (test code = STN ACCEPTABLE) STAIN ACCEPTABLE ANISOCYTOSIS (test code = ANISO) 1+ PLATELET ESTIMATE (test code = PLTEST) DECREASED PLATELET MORPHOLOGY (test code = PLTMORPH) NORMAL COMPREHENSIVE METABOLIC [id number] 17:01:00* Test Item Value Reference Range Interpretation [...] reference range due to change in reagent. [id number] 17:00:00* Test Item Value Reference Range Interpretation Comments GLUBED (test code = GLUBED) 270 mg/dL 74-106 H Performed by certified vacuum drum drier operator at [facility] B-TYPE NATRIURETIC [id number] 17:00:00* Test Item Value Reference Range Interpretation Comments B-TYPE NATRIURETIC PEPTIDE (test code = BNP) 33.15 pgram/mL 0-100 N CBC W/AUTO [id number] 16:55:00* Test Item Value Reference Range Interpretation [...] = MDIFF) NO, ONLY SCAN NEEDED DIFFERENTIAL [id number] 16:55:00* Test Item Value Reference Range Interpretation Comments STAIN ACCEPTABILITY (test code = STN ACCEPTABLE) CABOT RINGS (test code = CAB) MORPHOLOGY COMMENT (test code = MOC) PLATELET ESTIMATE (test code = PLTEST) PLATELET MORPHOLOGY (test code = PLTMORPH) CBC W/AUTO [id number] 16:55:00* Test Item Value Reference Range Interpretation [...] = MDIFF) NO, ONLY SCAN NEEDED DIFFERENTIAL [id number] 16:55:00* Test Item Value Reference Range Interpretation Comments STAIN ACCEPTABILITY (test code = STN ACCEPTABLE) CABOT RINGS (test code = CAB) MORPHOLOGY COMMENT (test code = MOC) PLATELET ESTIMATE (test code = PLTEST) PLATELET MORPHOLOGY (test code = PLTMORPH) CBC W/AUTO [id number] 16:55:00* Test Item Value Reference Range Interpretation [...] = MDIFF) NO, ONLY SCAN NEEDED DIFFERENTIAL [id number] 16:55:00* Test Item Value Reference Range Interpretation Comments STAIN ACCEPTABILITY (test code = STN ACCEPTABLE) MORPHOLOGY COMMENT (test code = MOC) PLATELET ESTIMATE (test code = PLTEST) PLATELET MORPHOLOGY (test code = PLTMORPH) CBC W/AUTO [id number] 16:55:00* Test Item Value Reference Range Interpretation [...] = MDIFF) NO, ONLY SCAN NEEDED DIFFERENTIAL [id number] 16:55:00* Test Item Value Reference Range Interpretation Comments STAIN ACCEPTABILITY (test code = STN ACCEPTABLE) CABOT RINGS (test code = CAB) MORPHOLOGY COMMENT (test code = MOC) PLATELET ESTIMATE (test code = PLTEST) PLATELET MORPHOLOGY (test code = PLTMORPH) CBC W/AUTO [id number] 16:49:00* Test Item Value Reference Range Interpretation [...] code = BA#) K/mm3 0.0-0.2 COMPREHENSIVE METABOLIC [id number] 16:49:00* Test Item Value Reference Range Interpretation [...] TOTAL (test code = ALKP) IUnit/L 45-117 [id number] 12:09:00* Test Item Value Reference Range Interpretation Comments GLUBED (test code = GLUBED) 219 mg/dL 74-106 H Performed by certified vacuum drum drier operator at [facility] [id number] 08:21:00* Test Item Value Reference Range Interpretation Comments GLUBED (test code = GLUBED) 249 mg/dL 74-106 H Performed by certified vacuum drum drier operator at [facility] BASIC METABOLIC [id number] 06:22:00* Test Item Value Reference Range Interpretation [...] code = CA) 8.6 mg/dL 8.5-10.1 N [id number] 20:04:00* Test Item Value Reference Range Interpretation Comments GLUBED (test code = GLUBED) 282 mg/dL 74-106 H Performed by certified vacuum drum drier operator at [facility] [id number] 17:10:00* Test Item Value Reference Range Interpretation Comments GLUBED (test code = GLUBED) 210 mg/dL 74-106 H Performed by certified vacuum drum drier operator at [facility] [id number] 11:31:00* Test Item Value Reference Range Interpretation Comments GLUBED (test code = GLUBED) 179 mg/dL 74-106 H Performed by certified vacuum drum drier operator at [facility] BASIC METABOLIC [id number] 09:04:00* Test Item Value Reference Range Interpretation [...] CA) 8.7 mg/dL 8.5-10.1 N BASIC METABOLIC [id number] 08:59:00* Test Item Value Reference Range Interpretation [...] CALCIUM (test code = CA) mg/dL 8.5-10.1 [id number] 08:24:00* Test Item Value Reference Range Interpretation Comments GLUBED (test code = GLUBED) 201 mg/dL 74-106 H Performed by certified vacuum drum drier operator at [facility] [id number] 21:07:00* Test Item Value Reference Range Interpretation Comments GLUBED (test code = GLUBED) 185 mg/dL 74-106 H Performed by certified vacuum drum drier operator at [facility] [id number] 20:21:00* Test Item Value Reference Range Interpretation Comments GLUBED (test code = GLUBED) 168 mg/dL 74-106 H Performed by certified vacuum drum drier operator at [facility] [id number] 17:21:00* Test Item Value Reference Range Interpretation Comments GLUBED (test code = GLUBED) 104 mg/dL 74-106 N Performed by certified vacuum drum drier operator at [facility] [id number] 11:54:00* Test Item Value Reference Range Interpretation Comments GLUBED (test code = GLUBED) 207 mg/dL 74-106 H Performed by certified vacuum drum drier operator at [facility] [id number] 10:26:00* Test Item Value Reference Range Interpretation Comments GLUBED (test code = GLUBED) 266 mg/dL 74-106 H Performed by certified vacuum drum drier operator at [facility] BASIC METABOLIC [id number] 08:10:00* Test Item Value Reference Range Interpretation [...] CA) 8.5 mg/dL 8.5-10.1 N BASIC METABOLIC [id number] 08:01:00* Test Item Value Reference Range Interpretation [...] CALCIUM (test code = CA) mg/dL 8.5-10.1 [id number] 20:13:00* Test Item Value Reference Range Interpretation Comments GLUBED (test code = GLUBED) 280 mg/dL 74-106 H Performed by certified vacuum drum drier operator at [facility] URINALYSIS [id number] 18:55:00* Test Item Value Reference Range Interpretation [...] code = MUCU) FEW #/LPF FEW BY V.LAB.HEATHSPECIMEN COMMENTS: urineUrine Source? [id number] 16:55:00* Test Item Value Reference Range Interpretation Comments GLUBED (test code = GLUBED) 151 mg/dL 74-106 H Performed by certified vacuum drum drier operator at [facility] [id number] 15:39:00* Test Item Value Reference Range Interpretation Comments GLUBED (test code = GLUBED) 264 mg/dL 74-106 H Performed by certified vacuum drum drier operator at [facility] CBC W/AUTO [id number] 11:09:00* Test Item Value Reference Range Interpretation [...] = MDIFF) NO, ONLY SCAN NEEDED DIFFERENTIAL [id number] 11:09:00* Test Item Value Reference Range Interpretation Comments STAIN ACCEPTABILITY (test code = STN ACCEPTABLE) STAIN ACCEPTABLE HYPOCHROMIA (test code = HYPO) 1+ ANISOCYTOSIS (test code = ANISO) 1+ PLATELET ESTIMATE (test code = PLTEST) SLIGHTLY DECREASED PLATELET MORPHOLOGY (test code = PLTMORPH) NORMAL CBC W/AUTO [id number] 10:19:00* Test Item Value Reference Range Interpretation [...] = MDIFF) NO, ONLY SCAN NEEDED DIFFERENTIAL [id number] 10:19:00* Test Item Value Reference Range Interpretation Comments STAIN ACCEPTABILITY (test code = STN ACCEPTABLE) MORPHOLOGY COMMENT (test code = MOC) PLATELET ESTIMATE (test code = PLTEST) PLATELET MORPHOLOGY (test code = PLTMORPH) CBC W/AUTO [id number] 10:15:00* Test Item Value Reference Range Interpretation [...] = MDIFF) NO, ONLY SCAN NEEDED DIFFERENTIAL [id number] 10:15:00* Test Item Value Reference Range Interpretation Comments STAIN ACCEPTABILITY (test code = STN ACCEPTABLE) CABOT RINGS (test code = CAB) MORPHOLOGY COMMENT (test code = MOC) PLATELET ESTIMATE (test code = PLTEST) PLATELET MORPHOLOGY (test code = PLTMORPH) CBC W/AUTO [id number] 10:15:00* Test Item Value Reference Range Interpretation [...] = MDIFF) NO, ONLY SCAN NEEDED DIFFERENTIAL [id number] 10:15:00* Test Item Value Reference Range Interpretation Comments STAIN ACCEPTABILITY (test code = STN ACCEPTABLE) MORPHOLOGY COMMENT (test code = MOC) PLATELET ESTIMATE (test code = PLTEST) PLATELET MORPHOLOGY (test code = PLTMORPH) CBC W/AUTO [id number] 10:15:00* Test Item Value Reference Range Interpretation [...] = MDIFF) NO, ONLY SCAN NEEDED DIFFERENTIAL [id number] 10:15:00* Test Item Value Reference Range Interpretation Comments STAIN ACCEPTABILITY (test code = STN ACCEPTABLE) CABOT RINGS (test code = CAB) MORPHOLOGY COMMENT (test code = MOC) PLATELET ESTIMATE (test code = PLTEST) PLATELET MORPHOLOGY (test code = PLTMORPH) CBC W/AUTO [id number] 10:00:00* Test Item Value Reference Range Interpretation [...] # (test code = BA#) K/mm3 0.0-0.2 [id number] 08:44:00* Test Item Value Reference Range Interpretation Comments GLUBED (test code = GLUBED) 305 mg/dL 74-106 H Performed by certified vacuum drum drier operator at [facility] BASIC METABOLIC [id number] 08:31:00* Test Item Value Reference Range Interpretation [...] code = CA) 8.0 mg/dL 8.5-10.1 L [id number] 20:37:00* Test Item Value Reference Range Interpretation Comments GLUBED (test code = GLUBED) 200 mg/dL 74-106 H Performed by certified vacuum drum drier operator at [facility] - XR CHEST 1 [id number] 18:15:00 FAX: Benjamin Francis MD [phone] [place]: B St: ADM Name: KALYANI CATES [facility] : [birth year] Age/S: 64/F [address] Unit #: [id number] Loc: V.[address] [address] Phys: Benjamin Masters MD Acct: [id number] Dis Date: Status: ADM IN PHONE #: [phone] Exam Date: 09/03/2019 1615 FAX #: [phone] Reason: CHF EXAMS: CPT CODE: [id number] XR CHEST 1 V 20181 EXAM: Chest x-ray, one view; INFORMATION: CHF, hypoglycemia; IMPRESSION: 1. Mild cardiomegaly; otherwise, no evidence of active cardiopulmonary disease. 2. No significant change compared with a study from August 28, 2019. Location code: [facility] at 1815 Reported and signed by: Jc Bravo M.D. CC: Benjamin Masters Technologist: WENDIE COMER, RT(R); Jacquie Alcantara RT(R) Trnscrd Date/Time/By: 09/03/2019 (1814) : By: Dannielle Orig Print D/T: S: 09/03/2019 (1817) PAGE 1 Signed Report [id number] 17:28:00* Test Item Value Reference Range Interpretation Comments GLUBED (test code = GLUBED) 103 mg/dL 74-106 N Performed by certified vacuum drum drier operator at [facility] [id number] 12:43:00* Test Item Value Reference Range Interpretation Comments GLUBED (test code = GLUBED) 201 mg/dL 74-106 H Performed by certified vacuum drum drier operator at [facility] B-TYPE NATRIURETIC [id number] 12:25:00* Test Item Value Reference Range Interpretation Comments B-TYPE NATRIURETIC PEPTIDE (test code = BNP) 20.62 pgram/mL 0-100 N SPECIMEN COMMENTS: add to AM labsBASIC METABOLIC [id number] 09:49:00* Test Item Value Reference Range Interpretation [...] code = CA) 8.3 mg/dL 8.5-10.1 L [id number] 08:23:00* Test Item Value Reference Range Interpretation Comments GLUBED (test code = GLUBED) 242 mg/dL 74-106 H Performed by certified vacuum drum drier operator at [facility] [id number] 20:51:00* Test Item Value Reference Range Interpretation Comments GLUBED (test code = GLUBED) 155 mg/dL 74-106 H Performed by certified vacuum drum drier operator at [facility] [id number] 16:25:00* Test Item Value Reference Range Interpretation Comments GLUBED (test code = GLUBED) 245 mg/dL 74-106 H Performed by certified vacuum drum drier operator at [facility] [id number] 14:55:00* Test Item Value Reference Range Interpretation Comments MAGNESIUM (test code = MAG) 1.8 mg/dL 1.8-2.4 N COMPREHENSIVE METABOLIC [id number] 13:39:00* Test Item Value Reference Range Interpretation [...] due to change in reagent. COMPREHENSIVE METABOLIC [id number] 13:31:00* Test Item Value Reference Range Interpretation [...] code = ALKP) IUnit/L 45-117 CBC W/AUTO [id number] 12:41:00* Test Item Value Reference Range Interpretation [...] NRBC#) 0.00 K/mm3 0.0-0.1 N CBC W/AUTO [id number] 12:32:00* Test Item Value Reference Range Interpretation [...] # (test code = BA#) K/mm3 0.0-0.2 [id number] 11:40:00* Test Item Value Reference Range Interpretation Comments GLUBED (test code = GLUBED) 252 mg/dL 74-106 H Performed by certified vacuum drum drier operator at [facility] [id number] 08:02:00* Test Item Value Reference Range Interpretation Comments GLUBED (test code = GLUBED) 252 mg/dL 74-106 H Performed by certified vacuum drum drier operator at [facility] [id number] 20:04:00* Test Item Value Reference Range Interpretation Comments GLUBED (test code = GLUBED) 183 mg/dL 74-106 H Performed by certified vacuum drum drier operator at [facility] [id number] 18:42:00* Test Item Value Reference Range Interpretation Comments GLUBED (test code = GLUBED) 218 mg/dL 74-106 H Performed by certified vacuum drum drier operator at [facility] [id number] 12:24:00* Test Item Value Reference Range Interpretation Comments GLUBED (test code = GLUBED) 281 mg/dL 74-106 H Performed by certified vacuum drum drier operator at [facility] [id number] 08:29:00* Test Item Value Reference Range Interpretation Comments GLUBED (test code = GLUBED) 293 mg/dL 74-106 H Performed by certified vacuum drum drier operator at [facility] [id number] 20:21:00* Test Item Value Reference Range Interpretation Comments GLUBED (test code = GLUBED) 236 mg/dL 74-106 H Performed by certified vacuum drum drier operator at [facility] [id number] 17:17:00* Test Item Value Reference Range Interpretation Comments GLUBED (test code = GLUBED) 311 mg/dL 74-106 H Performed by certified vacuum drum drier operator at [facility] [id number] 12:22:00* Test Item Value Reference Range Interpretation Comments GLUBED (test code = GLUBED) 230 mg/dL 74-106 H Performed by certified vacuum drum drier operator at [facility] [id number] 08:34:00* Test Item Value Reference Range Interpretation Comments GLUBED (test code = GLUBED) 301 mg/dL 74-106 H Performed by certified vacuum drum drier operator at [facility] BASIC METABOLIC [id number] 06:15:00* Test Item Value Reference Range Interpretation [...] CA) 8.6 mg/dL 8.5-10.1 N BASIC METABOLIC [id number] 06:12:00* Test Item Value Reference Range Interpretation [...] code = CA) 8.6 mg/dL 8.5-10.1 N [id number] 20:44:00* Test Item Value Reference Range Interpretation Comments GLUBED (test code = GLUBED) 304 mg/dL 74-106 H Performed by certified vacuum drum drier operator at [facility] [id number] 17:42:00* Test Item Value Reference Range Interpretation Comments MAGNESIUM (test code = MAG) 1.8 mg/dL 1.8-2.4 N [id number] 17:25:00* Test Item Value Reference Range Interpretation Comments GLUBED (test code = GLUBED) 196 mg/dL 74-106 H Performed by certified vacuum drum drier operator at [facility] [id number] 12:10:00* Test Item Value Reference Range Interpretation Comments GLUBED (test code = GLUBED) 223 mg/dL 74-106 H Performed by certified vacuum drum drier operator at [facility] BASIC METABOLIC [id number] 07:59:00* Test Item Value Reference Range Interpretation [...] code = CA) 8.6 mg/dL 8.5-10.1 N [id number] 07:59:00* Test Item Value Reference Range Interpretation Comments MAGNESIUM (test code = MAG) 1.8 mg/dL 1.8-2.4 N [id number] 07:54:00* Test Item Value Reference Range Interpretation Comments GLUBED (test code = GLUBED) 232 mg/dL 74-106 H Performed by certified vacuum drum drier operator at [facility] BASIC METABOLIC [id number] 07:35:00* Test Item Value Reference Range Interpretation [...] CALCIUM (test code = CA) mg/dL 8.5-10.1 [id number] 07:35:00* Test Item Value Reference Range Interpretation Comments MAGNESIUM (test code = MAG) mg/dL 1.8-2.4 [id number] 20:33:00* Test Item Value Reference Range Interpretation Comments GLUBED (test code = GLUBED) 161 mg/dL 74-106 H Performed by certified vacuum drum drier operator at [facility] [id number] 16:15:00* Test Item Value Reference Range Interpretation Comments GLUBED (test code = GLUBED) 137 mg/dL 74-106 H Performed by certified vacuum drum drier operator at [facility] [id number] 15:50:00 RUN DATE: 08/29/19 [place] - Lab PAGE 1 RUN TIME: 1550 Specimen Inqui ry RUN USER: INTERFACE PATIENT: KALYANI TALAVERA ACCT #: [id number] LOC: [place]UR[place] U #: [id number] AGE/SX: 64/F ROOM: [facility] RE08/29/19REG DR: Benjamin Masters MD : 57 BED: A DIS: STATUS: ADM IN TLOC: SPEC #: [id number] RECD: 08/28/19 STATUS: SHREYA REQ #: [id number] MARILEE: 08/27/19- [facility] DR: Emil Martinez MD ENTERED: 02/05/20-1140 SP TYPE: STOMACH OTHR DR: Faizan Barron i, MD, Kuldip Kumar MD Ojeas, Harry Silvio MDORDERED: GROSS COPIES TO: Emil Martinez MD [address] [place] [address] Faizan Jennings MD [address] [place] [address] Harry Gutierrez MD [address] [facility] [address] [place] [address] Kb Bradford MD [address] [place] [id number] PROCEDURES: GROSS (08/29/19- 1450) TISSUES: ANTRAL BIOPSY - H-PYLORI CLINICAL HISTORY COLLECTION DATE: 08/27/19 DYSPHAGIA FINAL DIAGNOSIS Antrum, biop sy: REACTIVE GASTROPATHY NO INTESTINAL METAPLASIA SEEN NEGA TIVE FOR HELICOBACTER PYLORI BY GIEMSA STAIN NEGATIVE FOR MALIGNANCY CONTINUED ON NEXT PAGE RUN DATE : 08/29/19 [facility] PAGE 2 RUN TIME: 1550 Specimen Inquiry RUN USER: INTERFACE SPEC #: [id number] PATIENT: KALYANI TALAVERA #V [id number] (Continued) FINAL DIAGNOSIS (Continue d) BRITTNI/corby [place] [address], [address] MACROSCOPIC The specimen is re ceived in formalin, labeled with the patient's name, and identified as "antrum bx", and consists of two gutierrez biopsies measuring 0.25 cm each. RADHA SS PERFORMED AT [facility] [address] [facility] [place] [address] (p)[phone] MICROS COPIC All of the stains, including any controls performed, stain casandra loyd. MICROSCOPIC PERFORMED AT [facility] [address] [place] [address] (p)[phone] PERFORMING SITE Diagnosis performed at: [facility] [address] [place] [address] Signed SIGNATURE ON FILE Petty Lowe MD 08/29/19 1550 END OF REPORT [id number] 11:43:00* Test Item Value Reference Range Interpretation Comments GLUBED (test code = GLUBED) 318 mg/dL 74-106 H Performed by certified vacuum drum drier operator at [facility] BASIC METABOLIC [id number] 09:27:00* Test Item Value Reference Range Interpretation [...] CA) 8.5 mg/dL 8.5-10.1 N BASIC METABOLIC [id number] 09:17:00* Test Item Value Reference Range Interpretation [...] CALCIUM (test code = CA) mg/dL 8.5-10.1 [id number] 08:08:00* Test Item Value Reference Range Interpretation Comments GLUBED (test code = GLUBED) 291 mg/dL 74-106 H Performed by certified vacuum drum drier operator at [facility] [id number] 20:52:00* Test Item Value Reference Range Interpretation Comments GLUBED (test code = GLUBED) 267 mg/dL 74-106 H Performed by certified vacuum drum drier operator at [facility] [id number] 19:40:00* Test Item Value Reference Range Interpretation Comments TROPONIN-I (test code = TROPI) <0.015 ng/mL 0-0.045 N SPECIMEN COMMENTS: [id number] 19:27:00* Test Item Value Reference Range Interpretation Comments MAGNESIUM (test code = MAG) 1.6 mg/dL 1.8-2.4 L - XR ANKLE 3 + V [id number] 16:26:00 FAX: Benjamin Francis MD [phone] [place]: St: ADM Name: KALYANI CATES [facility] : [birth year] Age/S: 64/F [address] [facility] Unit #: [id number] Loc: V.[address] [place] [address] Phys: Benjamin Masters MD Acct: [id number] Dis Date: Status: ADM IN PHONE #: [phone] Exam Date: 08/28/2019 1600 FAX #: [phone] Reason: Left ankle injury EXAMS: CPT CODE: [id number] XR ANKLE 3 + V LT [address]8765 REASON FOR EXAM: Left ankle injury EXAM ORDER DATE: 08/28/2019 12:00 AM Ordering: Benjamin Masters MD Attending:Benjamin Masters MD Location:[facility] PROCEDURE: - XR ANKLE 3 + V LT FINDIN GS: 3 views of the left ankle were obtained. The osseous structures are un remarkable in size and shape. The joint spaces are maintained. No evidence of fracture. The syndesmosis is intact. IMPRESSION: Mild soft tissue swelling in the lateral malleolus. at 2252 Reported and signed by: Pelon Moreno M.D. CC: Benjamin Masters Technologist: Jacquie CLEMENTS(R) Trnscrd Date/Time/By: 08/28/2019 (8408) : By: LeanneVTL Orig P rint D/T: S: 08/28/2019 (2466) PAGE 1 Signed Report [id number] 16:25:00* Test Item Value Reference Range Interpretation Comments GLUBED (test code = GLUBED) 241 mg/dL 74-106 H Performed by certified vacuum drum drier operator at [facility] - XR CHEST 1 [id number] 16:25:00 FAX: Benjamin Francis MD [phone] [place]: St: ADM Name: KALYANI CATES [facility] : [birth year] Age/S: 64/F [address] [facility] Unit #: [id number] Loc: V[address] [place] [address] Phys: Benjamin Masters MD Acct: [id number] Dis Date: Status: ADM IN PHONE #: [phone] Exam Date: 08/28/2019 1600 FAX #: [phone] Reason: CHF EXAMS: CPT CODE: [id number] XR CHEST 1 V 53520 REASON FOR EXAM: CHF EXAM ORDER DATE: 08/28/2019 12:00 AM Ordering: Benjamin Masters MD Attending:Benjamin Masters MD Location:[facility] CEDURE: - XR CHEST 1 V COMPARISON: 08/27/2019 FINDING S: Portable AP frontal view of the chest obtained at 3:59 PM shows clear lungs without evidence of consolidation. There is no evidence of effusion. The heart size is minimally enlarged. Pulmonary vasculatures are minimally congested. IMPRESSION: Interval improvement in the congestive heart failure. at 1625 Reported and signed by: Pelon Moreno M.D. CC: Benjamin Masters st: Jacquie Alcantara RT(R) Trnscrd Date/Time/By: 08/28/2019 (2357) : By: KendyL Orig Print D/T: S: 08/28/2019 (2373) PAGE 1 Signed Report [id number] 11:24:00* Test Item Value Reference Range Interpretation Comments GLUBED (test code = GLUBED) 289 mg/dL 74-106 H Performed by certified vacuum drum drier operator at [facility] [id number] 07:51:00* Test Item Value Reference Range Interpretation Comments GLUBED (test code = GLUBED) 345 mg/dL 74-106 H Performed by certified vacuum drum drier operator at [facility] BASIC METABOLIC [id number] 06:05:00* Test Item Value Reference Range Interpretation [...] CA) 8.4 mg/dL 8.5-10.1 L CBC W/AUTO [id number] 06:00:00* Test Item Value Reference Range Interpretation [...] = MDIFF) NO, ONLY SCAN NEEDED DIFFERENTIAL [id number] 06:00:00* Test Item Value Reference Range Interpretation Comments STAIN ACCEPTABILITY (test code = STN ACCEPTABLE) STAIN ACCEPTABLE ANISOCYTOSIS (test code = ANISO) 2+ MICROCYTOSIS (test code = MICR) 2+ PLATELET ESTIMATE (test code = PLTEST) ADEQUATE PLATELET MORPHOLOGY (test code = PLTMORPH) NORMAL BASIC METABOLIC [id number] 05:57:00* Test Item Value Reference Range Interpretation [...] code = CA) mg/dL 8.5-10.1 CBC W/AUTO [id number] 05:35:00* Test Item Value Reference Range Interpretation [...] = MDIFF) NO, ONLY SCAN NEEDED DIFFERENTIAL [id number] 05:35:00* Test Item Value Reference Range Interpretation Comments STAIN ACCEPTABILITY (test code = STN ACCEPTABLE) CABOT RINGS (test code = CAB) MORPHOLOGY COMMENT (test code = MOC) PLATELET ESTIMATE (test code = PLTEST) PLATELET MORPHOLOGY (test code = PLTMORPH) CBC W/AUTO [id number] 05:35:00* Test Item Value Reference Range Interpretation [...] = MDIFF) NO, ONLY SCAN NEEDED DIFFERENTIAL [id number] 05:35:00* Test Item Value Reference Range Interpretation Comments STAIN ACCEPTABILITY (test code = STN ACCEPTABLE) MORPHOLOGY COMMENT (test code = MOC) PLATELET ESTIMATE (test code = PLTEST) PLATELET MORPHOLOGY (test code = PLTMORPH) CBC W/AUTO [id number] 05:35:00* Test Item Value Reference Range Interpretation [...] = MDIFF) NO, ONLY SCAN NEEDED DIFFERENTIAL [id number] 05:35:00* Test Item Value Reference Range Interpretation Comments STAIN ACCEPTABILITY (test code = STN ACCEPTABLE) MORPHOLOGY COMMENT (test code = MOC) PLATELET ESTIMATE (test code = PLTEST) PLATELET MORPHOLOGY (test code = PLTMORPH) CBC W/AUTO [id number] 05:35:00* Test Item Value Reference Range Interpretation [...] = MDIFF) NO, ONLY SCAN NEEDED DIFFERENTIAL [id number] 05:35:00* Test Item Value Reference Range Interpretation Comments STAIN ACCEPTABILITY (test code = STN ACCEPTABLE) CABOT RINGS (test code = CAB) MORPHOLOGY COMMENT (test code = MOC) PLATELET ESTIMATE (test code = PLTEST) PLATELET MORPHOLOGY (test code = PLTMORPH) [id number] 20:01:00* Test Item Value Reference Range Interpretation Comments GLUBED (test code = GLUBED) 220 mg/dL 74-106 H Performed by certified vacuum drum drier operator at [facility] [id number] 19:18:00* Test Item Value Reference Range Interpretation Comments GLYCOSYLATED HEMOGLOBIN (HA1C) (test code = GLYHGB) 9.6 % HbA1 SUGGESTED DIAGNOSIS: HbA1C (%) Diabetic >6.4Prediabetes 5.7 - 6.4Normal <5.7 ESTIMATED AVERAGE GLUCOSE (test code = EAG) 229 MG/DL - XR CHEST 1 [id number] 18:54:00 FAX: Loan Cortez NP [phone] [place]: St: [facility] FAX: Benjamin Francis MD [phone] Name: KALYANI TALAVERA [facility] : 1955 Age/S: 64/F [address] Unit #: [id number] Loc: V.3012 [place] [address] Phys: Loan Cortez NP Acct: [id number] Dis Date: Status: ADM IN PHONE #: [phone] Exam Date: 08/27/2019 1845 FAX #: [phone] Reason: shortness of breath EXAMS: CPT CODE: [id number] XR CHEST 1 V 23707 REASON FOR EXAM: shortness of breath EXAM [...] S: 08/27/2019 (1856) PAGE 1 Signed Report [id number] 18:35:00* Test Item Value Reference Range Interpretation Comments GLUBED (test code = GLUBED) 201 mg/dL 74-106 H Performed by certified vacuum drum drier operator at [facility] T4 [id number] 18:03:00* Test Item Value Reference Range Interpretation Comments T4 FREE (test code = T4F) 1.10 ng/dL 0.76-1.46 N THYROID STIMULATING [id number] 18:03:00* Test Item Value Reference Range Interpretation Comments THYROID STIMULATING HORMONE (test code = TSH) 1.260 uIU/mL 0.36-3.7 4 N TSH REFERENCE RANGES: EUTHYROID: 0.35 - 4.3 mIU/mL HYPO : > 5.5 mIU/mL HYPER : < 0.35 mIU/mL [id number] 16:50:00* Test Item Value Reference Range Interpretation Comments GLUBED (test code = GLUBED) 217 mg/dL 74-106 H Performed by certified vacuum drum drier operator at [facility] [id number] 12:15:00* Test Item Value Reference Range Interpretation Comments GLUBED (test code = GLUBED) 272 mg/dL 74-106 H Performed by certified vacuum drum drier operator at [facility] [id number] 08:14:00* Test Item Value Reference Range Interpretation Comments GLUBED (test code = GLUBED) 322 mg/dL 74-106 H Performed by certified vacuum drum drier operator at [facility] [id number] 04:01:00* Test Item Value Reference Range Interpretation Comments GLUBED (test code = GLUBED) 329 mg/dL 74-106 H Performed by certified vacuum drum drier operator at [facility] CBC W/AUTO [id number] 23:42:00* Test Item Value Reference Range Interpretation [...] = MDIFF) NO, ONLY SCAN NEEDED DIFFERENTIAL [id number] 23:42:00* Test Item Value Reference Range Interpretation Comments STAIN ACCEPTABILITY (test code = STN ACCEPTABLE) STAIN ACCEPTABLE ANISOCYTOSIS (test code = ANISO) 2+ MICROCYTOSIS (test code = MICR) 2+ PLATELET ESTIMATE (test code = PLTEST) ADEQUATE PLATELET MORPHOLOGY (test code = PLTMORPH) NORMAL COMPREHENSIVE METABOLIC [id number] 23:14:00* Test Item Value Reference Range Interpretation Comments SODIUM (test code = NA) 137 mmol/L 136-145 N POTASSIUM (test code = K) 4.2 mmol/L 3.5-5.1 N CHLORIDE (test code = CL) 101.0 mmol/L 98-107 N CARBON DIOXIDE (test code = CO2) 29.0 mmol/L 21-32 N ANION GAP (test code = GAP) 11.2 10-20 N GLUCOSE (test code = GLU) 628 mg/dL 74-106 Jossy cristobal called to [id number] by V.LAB.JP1 08/26/19 2313Critical results verified and [...] range due to change in reagent. URINALYSIS [id number] 23:08:00* Test Item Value Reference Range Interpretation [...] #/HPF NONE Urine Source? Clean CatchCOMPREHENSIVE METABOLIC [id number] 23:02:00* Test Item Value Reference Range Interpretation [...] code = ALKP) IUnit/L 45-117 CBC W/AUTO [id number] 22:58:00* Test Item Value Reference Range Interpretation [...] = MDIFF) NO, ONLY SCAN NEEDED DIFFERENTIAL [id number] 22:58:00* Test Item Value Reference Range Interpretation Comments STAIN ACCEPTABILITY (test code = STN ACCEPTABLE) CABOT RINGS (test code = CAB) MORPHOLOGY COMMENT (test code = MOC) PLATELET ESTIMATE (test code = PLTEST) PLATELET MORPHOLOGY (test code = PLTMORPH) CBC W/AUTO [id number] 22:58:00* Test Item Value Reference Range Interpretation [...] = MDIFF) NO, ONLY SCAN NEEDED DIFFERENTIAL [id number] 22:58:00* Test Item Value Reference Range Interpretation Comments STAIN ACCEPTABILITY (test code = STN ACCEPTABLE) CABOT RINGS (test code = CAB) MORPHOLOGY COMMENT (test code = MOC) PLATELET ESTIMATE (test code = PLTEST) PLATELET MORPHOLOGY (test code = PLTMORPH) CBC W/AUTO [id number] 22:58:00* Test Item Value Reference Range Interpretation [...] = MDIFF) NO, ONLY SCAN NEEDED DIFFERENTIAL [id number] 22:58:00* Test Item Value Reference Range Interpretation Comments STAIN ACCEPTABILITY (test code = STN ACCEPTABLE) MORPHOLOGY COMMENT (test code = MOC) PLATELET ESTIMATE (test code = PLTEST) PLATELET MORPHOLOGY (test code = PLTMORPH) CBC W/AUTO [id number] 22:58:00* Test Item Value Reference Range Interpretation [...] = MDIFF) NO, ONLY SCAN NEEDED DIFFERENTIAL [id number] 22:58:00* Test Item Value Reference Range Interpretation Comments STAIN ACCEPTABILITY (test code = STN ACCEPTABLE) CABOT RINGS (test code = CAB) MORPHOLOGY COMMENT (test code = MOC) PLATELET ESTIMATE (test code = PLTEST) PLATELET MORPHOLOGY (test code = PLTMORPH) VENOUS BLOOD [id number] 22:36:00* Test Item Value Reference Range Interpretation [...] [place] 22:17 - 08/26/2019; by Marcie TONY RIG HAND METHEMOGLOBIN (test code = METHGB) 0.1 % 0.0-1.50 N BASIC METABOLIC [id number] 14:12:00* Test Item Value Reference Range Interpretation [...] CA) 8.7 mg/dL 8.5-10.1 N BASIC METABOLIC [id number] 14:06:00* Test Item Value Reference Range Interpretation [...] CA) 8.7 mg/dL 8.5-10.1 N CBC W/AUTO [id number] 13:33:00* Test Item Value Reference Range Interpretation [...] K/mm3 0.0-0.1 N - CT C-SPINE W/O [id number] 08:02:00 Name: KALYANI TALAVERA [facility] : 1955 Age/S: 64 / F [address] [facility] Unit #: [id number] [place] [address] Phys: Thelma Loyd DO Acct: [id number] Dis Date: Status: REG ER PHONE #: [phone] Exam Date: 08/06/2019 8709 FAX #: [phone] Reason: Neck Pain EXAMS: CPT CODE: [id number] CT C-SPINE W/O CONTRAST 51335 HISTORY: Neck Pain, status post fall TECHNIQUE: [...] RT(R),(MR),(CT) CTDI: DLP: Trnscb Date/Time: 08/06/2019 (0802) t.SDR.LDP1 Orig Print D/T: S: 08/06/2019 (0805) PAGE 1 Signed Report BASIC METABOLIC [id number] 07:06:00* Test Item Value Reference Range Interpretation [...] CA) 9.1 mg/dL 8.5-10.1 N BASIC METABOLIC [id number] 07:02:00* Test Item Value Reference Range Interpretation [...] code = CA) mg/dL 8.5-10.1 CBC W/O [id number] 06:41:00* Test Item Value Reference Range Interpretation [...] fL 6.7-11.0 N - CT C-SPINE W/O [id number] 06:25:00 Name: KALYANI TALAVERA [facility] : 1955 Age/S: 64 / F [address] Unit #: [id number] Loc: [place] [address] Phys: Thelma Loyd DO Acct: [id number] Dis Date: Status: REG ER PHONE #: [phone] Exam Date: 08/06/2019 0605 FAX #: [phone] Reason: Neck Pain EXAMS: CPT CODE: [id number] CT C-SPINE W/O CONTRAST 77002 EXAM: - CT C-SPINE W/O CONTRAST HISTORY: [...] Technologist:RT EDUARDO CTDI: DLP: Trnscb Date/Time: 08/06/2019 (01 15) t.NADIAR.CB5 Orig Print D/T: S: 08/06/2019 (06) P AGE 2 Signed Report - CT MAXIFAC W/O [id number] 06:21:00 Name: KALYANI TALAVERA [facility] : 1955 Age/S: 64 / F [address] Unit #: [id number] Loc: [place] [address] Phys: Thelma Loyd DO Acct: [id number] Dis Date: Status: REG ER PHONE #: [phone] Exam Date: 08/06/2019 0610 FAX #: [phone] Reason: TRAUMA EXAMS: CPT CODE: [id number] CT MAXIFAC W/O CNT 04067 EXAM: - CT MAXIFAC W/O CNT HISTORY: [...] Technologist:RT EDUARDO CTDI: DLP: Trnscb Date/Time: 08/06/2019 (0621) Jaylan.[email or web address] Orig Print D/T: S: 08/06/2019 (9503) PAGE 1 Signed Report - CT HEAD/BRAIN W/O [id number] 06:20:00 Name: KALYANI TALAVERA [facility] : 1955 Age/S: 64 / F [address] [facility] Unit #: [id number] Loc: [place] [address] Phys: Thelma Loyd DO Acct: [id number] Dis Date: Status: REG ER PHONE #: [phone] Exam Date: 08/06/2019 0559 FAX #: [phone] Reason: HEADACHE EXAMS: CPT CODE: [id number] CT HEAD/BRAIN W/O CONT 05394 EXAM: - CT HEAD/BRAIN W/O CONT Location [...] 1 Signed Report (CONTINUED) Name: KALYANI MOSES [facility] : 1955 Age/S: 64 / F [address] [facility] Unit #: [id number] L oc: [place] [address] Phys: Thelma Loyd DO Acct: [id number] Dis Date: Status: REG ER PHONE #: [phone] Exam Date: 08/06/2019 0536 FAX #: [phone] Malinda son: HEADACHE EXAMS: CPT CODE: [id number] CT HEAD/BRAIN W/O CONT 22738 <Continued> CC: Thelma Loyd DO; Benjamin Masters Technologist:RT EDUARDO CTDI: DLP: Trnscb Date/Time: 08/06/2019 (0620) [email or web address] Orig Print D/T: S: 08/06/2019 (6774) PAGE 2 Signed Report BASIC METABOLIC [id number] 07:49:00* Test Item Value Reference Range Interpretation [...] code = CA) 8.7 mg/dL 8.5-10.1 N [id number] 06:05:00* Test Item Value Reference Range Interpretation Comments GLUBED (test code = GLUBED) 181 mg/dL 74-106 H Performed by certified vacuum drum drier operator at [facility] [id number] 20:37:00* Test Item Value Reference Range Interpretation Comments GLUBED (test code = GLUBED) 285 mg/dL 74-106 H Performed by certified vacuum drum drier operator at [facility] [id number] 17:15:00* Test Item Value Reference Range Interpretation Comments GLUBED (test code = GLUBED) 84 mg/dL 74-106 N Performed by certified vacuum drum drier operator at [facility] [id number] 17:15:00* Test Item Value Reference Range Interpretation Comments GLUBED (test code = GLUBED) 166 mg/dL 74-106 H Performed by certified vacuum drum drier operator at [facility] BASIC METABOLIC [id number] 07:13:00* Test Item Value Reference Range Interpretation [...] CA) 8.7 mg/dL 8.5-10.1 N BASIC METABOLIC [id number] 07:09:00* Test Item Value Reference Range Interpretation [...] code = CA) mg/dL 8.5-10.1 CBC W/AUTO [id number] 06:42:00* Test Item Value Reference Range Interpretation [...] DIFF REQUIRED (test code = MDIFF) NO [id number] 06:33:00* Test Item Value Reference Range Interpretation Comments GLUBED (test code = GLUBED) 180 mg/dL 74-106 H Performed by certified vacuum drum drier operator at [facility] [id number] 20:48:00* Test Item Value Reference Range Interpretation Comments GLUBED (test code = GLUBED) 403 mg/dL 74-106 H Performed by certified vacuum drum drier operator at [facility] [id number] 18:00:00* Test Item Value Reference Range Interpretation Comments GLUBED (test code = GLUBED) 326 mg/dL 74-106 H Performed by certified vacuum drum drier operator at [facility] [id number] 14:21:00* Test Item Value Reference Range Interpretation Comments GLYCOSYLATED HEMOGLOBIN (HA1C) (test code = GLYHGB) 8.9 % HbA1 SUGGESTED DIAGNOSIS: HbA1C (%) Diabetic >6.4Prediabetes 5.7 - 6.4Normal <5.7 ESTIMATED AVERAGE GLUCOSE (test code = EAG) 209 MG/DL [id number] 13:22:00* Test Item Value Reference Range Interpretation Comments GLUBED (test code = GLUBED) 222 mg/dL 74-106 H Performed by certified vacuum drum drier operator at [facility] CBC W/AUTO [id number] 10:20:00* Test Item Value Reference Range Interpretation [...] = MDIFF) NO, ONLY SCAN NEEDED DIFFERENTIAL [id number] 10:20:00* Test Item Value Reference Range Interpretation Comments STAIN ACCEPTABILITY (test code = STN ACCEPTABLE) STAIN ACCEPTABLE MORPHOLOGY COMMENT (test code = MOC) NORMAL PLATELET ESTIMATE (test code = PLTEST) ADEQUATE PLATELET MORPHOLOGY (test code = PLTMORPH) NORMAL COMPREHENSIVE METABOLIC [id number] 10:05:00* Test Item Value Reference Range Interpretation [...] due to change in reagent. B-TYPE NATRIURETIC [id number] 09:56:00* Test Item Value Reference Range Interpretation Comments B-TYPE NATRIURETIC PEPTIDE (test code = BNP) 62.56 pgram/mL 0-100 N COMPREHENSIVE METABOLIC [id number] 09:55:00* Test Item Value Reference Range Interpretation [...] code = ALKP) IUnit/L 45-117 CBC W/AUTO [id number] 09:21:00* Test Item Value Reference Range Interpretation [...] = MDIFF) NO, ONLY SCAN NEEDED DIFFERENTIAL [id number] 09:21:00* Test Item Value Reference Range Interpretation Comments STAIN ACCEPTABILITY (test code = STN ACCEPTABLE) CABOT RINGS (test code = CAB) MORPHOLOGY COMMENT (test code = MOC) PLATELET ESTIMATE (test code = PLTEST) PLATELET MORPHOLOGY (test code = PLTMORPH) CBC W/AUTO [id number] 09:21:00* Test Item Value Reference Range Interpretation [...] = MDIFF) NO, ONLY SCAN NEEDED DIFFERENTIAL [id number] 09:21:00* Test Item Value Reference Range Interpretation Comments STAIN ACCEPTABILITY (test code = STN ACCEPTABLE) MORPHOLOGY COMMENT (test code = MOC) PLATELET ESTIMATE (test code = PLTEST) PLATELET MORPHOLOGY (test code = PLTMORPH) CBC W/AUTO [id number] 09:20:00* Test Item Value Reference Range Interpretation [...] = MDIFF) NO, ONLY SCAN NEEDED DIFFERENTIAL [id number] 09:20:00* Test Item Value Reference Range Interpretation Comments STAIN ACCEPTABILITY (test code = STN ACCEPTABLE) CABOT RINGS (test code = CAB) MORPHOLOGY COMMENT (test code = MOC) PLATELET ESTIMATE (test code = PLTEST) PLATELET MORPHOLOGY (test code = PLTMORPH) CBC W/AUTO [id number] 09:20:00* Test Item Value Reference Range Interpretation [...] = MDIFF) NO, ONLY SCAN NEEDED DIFFERENTIAL [id number] 09:20:00* Test Item Value Reference Range Interpretation Comments STAIN ACCEPTABILITY (test code = STN ACCEPTABLE) CABOT RINGS (test code = CAB) MORPHOLOGY COMMENT (test code = MOC) PLATELET ESTIMATE (test code = PLTEST) PLATELET MORPHOLOGY (test code = PLTMORPH) [id number] 06:25:00* Test Item Value Reference Range Interpretation Comments GLUBED (test code = GLUBED) 208 mg/dL 74-106 H Performed by certified vacuum drum drier operator at [facility] [id number] 20:49:00* Test Item Value Reference Range Interpretation Comments GLUBED (test code = GLUBED) 383 mg/dL 74-106 H Performed by certified vacuum drum drier operator at [facility] [id number] 20:49:00* Test Item Value Reference Range Interpretation Comments GLUBED (test code = GLUBED) 421 mg/dL 74-106 H Performed by certified vacuum drum drier operator at [facility] - XR CHEST 1 [id number] 16:23:00 FAX: Alfa Moscoso MD [phone] [place]: St: ADM FAX: Benjamin Francis MD [phone] Name: KALYANI TALAVERA [facility] : 1955 Age/S: 64/F [address] [facility] Unit #: [id number] Loc: [place] [address] Phys: Alfa Cassidy MD Acct: [id number] Dis Date: Status: ADM IN PHONE #: [phone] Exam Date: 06/29/2019 1600 FAX #: [phone] Reason: CHF EXAMS: CPT CODE: [id number] XR CHEST 1 V 04312 HISTORY: CHF. COMPARISON: June 28, 2019. Single view chest: Location: TH. Suboptimal inspiration. Crowding of bronchovascular markings. Dependent changes. No acute infiltrates, effusion or congestion. Cardiomegaly. IMPRESSION: No acute infiltrates, effusion or congestion. M arkedly suboptimal inspiration. Dependent changes. Electron ically Signed by Gregory Chowdhury on 06/29/2019 at 6543 Reported and signed by: Solomon Chowdhury M.D. CC: Farhad Cassidy MD; Benjamin Masters Technologist: Kizzy Cisse RT(R) Trnscrd Date/Time/By: 06/29/2019 (4806) : By: [email or web address] Orig Print D/T: S: 06/30/2019 (5456) PAGE 1 Signed Report GLUBED 2019-06-29 12:29:00* Test Item Value Reference Range Interpretation Comments GLUBED (test code = GLUBED) 310 mg/dL 74-106 H Performed by certified vacuum drum drier operator at [facility] [id number] 06:19:00* Test Item Value Reference Range Interpretation Comments GLUBED (test code = GLUBED) 339 mg/dL 74-106 H Performed by certified vacuum drum drier operator at [facility] [id number] 00:36:00* Test Item Value Reference Range Interpretation Comments GLUBED (test code = GLUBED) 454 mg/dL 74-106 H Performed by certified vacuum drum drier operator at [facility] [id number] 20:49:00* Test Item Value Reference Range Interpretation Comments GLUBED (test code = GLUBED) 480 mg/dL 74-106 H Performed by certified vacuum drum drier operator at [facility] [id number] 18:21:00* Test Item Value Reference Range Interpretation Comments GLUBED (test code = GLUBED) 388 mg/dL 74-106 H Performed by certified vacuum drum drier operator at [facility] URINALYSIS [id number] 11:46:00* Test Item Value Reference Range Interpretation [...] #/LPF FEW Urine Source? Clean CatchB-TYPE NATRIURETIC [id number] 10:41:00* Test Item Value Reference Range Interpretation [...] taking into account the patients history. PROTHROMBIN [id number] 09:36:00* Test Item Value Reference Range Interpretation [...] (2.5-3.5) IS PATIENT ON ANTICOAGULANTS? NTHROMBOPLASTIN TIME [id number] 09:36:00* Test Item Value Reference Range Interpretation Comments THROMBOPLASTIN TIME PARTIAL (test code = PTT) 33.1 seconds 25.0-36. 5 N IS PATIENT ON ANTICOAGULANTS? [id number] 09:36:00* Test Item Value Reference Range Interpretation [...] cirrhosis - IS PATIENT ON ANTICOAGULANTS? NLACTIC [id number] 09:31:00* Test Item Value Reference Range Interpretation Comments LACTIC ACID (test code = LACT) 0.9 mmol/L 0.4-1.9 N BASIC METABOLIC [id number] 09:23:00* Test Item Value Reference Range Interpretation [...] code = CA) 8.8 mg/dL 8.5-10.1 N [id number] 09:23:00* Test Item Value Reference Range Interpretation Comments TROPONIN-I (test code = TROPI) <0.015 ng/mL 0-0.045 N - XR CHEST 1 [id number] 08:57:00 FAX: [facility]ish Nur Si [phone] [place]: St: REG FAX: Anastacio Burgess MD Name: KALYANI TALAVERA [facility] : 1955 Age/S: 64/F [address] Unit #: [id number] Loc: [place] [address] Phys: Anastacio Burgess MD Acct: [id number] Dis Date: Status: REG ER PHONE #: [phone] Exam Date: 06/28/2019 08 FAX #: [phone] Reason: Shortness of Breath EXAMS: CPT CODE: [id number] XR CHEST 1 V 49922 REASON FOR EXAM: Shortness of Breath Exam [...] volumes with bibasilar subsegmental atelectasis. Location: [facility] at 0857 Reported and signed by: Dago Goodson MD CC: Lucille Land MD; Anastacio Burgess MD Technologist: Dayan Gallagher Trnscrd Date/Time/By: 06/28/2019 (0857) : By: [email or web address] Orig Print D/T: S: 06/28/2019 (0900) PAGE 1 Signed Report VENOUS BLOOD [id number] 08:54:00* Test Item Value Reference Range Interpretation Comments VENOUS BLOOD GAS PH (test code = PHV) 7.56 7.30-7.40 HH Results called to and read back by jairo 08:52 - 06/28/2019; by kushal cano VENOUS BLOOD GAS PCO2 (test code = PCO2V) 22.6 mm Hg 39.0-51.0 LL Results called to and read back by jairo 08:52 - 06/28/2019; by kushal accounts payable analyst VENOUS BLOOD GAS PO2 (test code = [...] METHGB) 0.3 % 0.0-1.50 N CBC W/O [id number] 08:45:00* Test Item Value Reference Range Interpretation [...] code = MPV) 10.1 fL 6.7-11.0 N [id number] 16:30:00* Test Item Value Reference Range Interpretation Comments GLUBED (test code = GLUBED) 256 mg/dL 74-106 H Performed by certified vacuum drum drier operator at [facility] [id number] 16:30:00* Test Item Value Reference Range Interpretation Comments GLUBED (test code = GLUBED) 277 mg/dL 74-106 H Performed by certified vacuum drum drier operator at [facility] [id number] 07:50:00* Test Item Value Reference Range Interpretation Comments GLUBED (test code = GLUBED) 145 mg/dL 74-106 H Performed by certified vacuum drum drier operator at [facility] [id number] 20:38:00* Test Item Value Reference Range Interpretation Comments GLUBED (test code = GLUBED) 250 mg/dL 74-106 H Performed by certified vacuum drum drier operator at [facility] [id number] 16:19:00* Test Item Value Reference Range Interpretation Comments GLUBED (test code = GLUBED) 340 mg/dL 74-106 H Performed by certified vacuum drum drier operator at [facility] [id number] 11:09:00* Test Item Value Reference Range Interpretation Comments GLUBED (test code = GLUBED) 102 mg/dL 74-106 N Performed by certified vacuum drum drier operator at [facility] [id number] 07:20:00* Test Item Value Reference Range Interpretation Comments GLUBED (test code = GLUBED) 144 mg/dL 74-106 H Performed by certified vacuum drum drier operator at [facility] [id number] 21:56:00* Test Item Value Reference Range Interpretation Comments GLUBED (test code = GLUBED) 328 mg/dL 74-106 H Performed by certified vacuum drum drier operator at [facility] [id number] 16:11:00* Test Item Value Reference Range Interpretation Comments GLUBED (test code = GLUBED) 378 mg/dL 74-106 H Performed by certified vacuum drum drier operator at [facility] [id number] 11:08:00* Test Item Value Reference Range Interpretation Comments GLUBED (test code = GLUBED) 168 mg/dL 74-106 H Performed by certified vacuum drum drier operator at [facility] [id number] 07:29:00* Test Item Value Reference Range Interpretation Comments GLUBED (test code = GLUBED) 205 mg/dL 74-106 H Performed by certified vacuum drum drier operator at [facility] B-TYPE NATRIURETIC [id number] 06:12:00* Test Item Value Reference Range Interpretation Comments B-TYPE NATRIURETIC PEPTIDE (test code = BNP) 86.51 pgram/mL 0-100 N COMPREHENSIVE METABOLIC [id number] 05:53:00* Test Item Value Reference Range Interpretation [...] due to change in reagent. COMPREHENSIVE METABOLIC [id number] 05:37:00* Test Item Value Reference Range Interpretation [...] code = ALKP) IUnit/L 45-117 CBC W/AUTO [id number] 05:26:00* Test Item Value Reference Range Interpretation [...] DIFF REQUIRED (test code = MDIFF) NO [id number] 02:25:00* Test Item Value Reference Range Interpretation Comments GLUBED (test code = GLUBED) 408 mg/dL 74-106 H Performed by certified vacuum drum drier operator at [facility] [id number] 17:10:00* Test Item Value Reference Range Interpretation Comments GLUCOSE (test code = GLU) 536 mg/dL 74-106 HH Re sults called to CFN2454 by V.LAB.LT 06/10/19 1710Critical results verified and read back by Nurse? Y [id number] 16:05:00* Test Item Value Reference Range Interpretation Comments GLUBED (test code = GLUBED) > 500 mg/dL 74-106 HH [facility] certified vacuum drum dri[facility] Not[facility]~ [id number] 11:05:00* Test Item Value Reference Range Interpretation Comments GLUBED (test code = GLUBED) 279 mg/dL 74-106 H Performed by certified vacuum drum drier operator at [facility] BASIC METABOLIC [id number] 11:02:00* Test Item Value Reference Range Interpretation [...] code = CA) 8.9 mg/dL 8.5-10.1 N [id number] 11:02:00* Test Item Value Reference Range Interpretation Comments MAGNESIUM (test code = MAG) 2.0 mg/dL 1.8-2.4 N BASIC METABOLIC [id number] 10:52:00* Test Item Value Reference Range Interpretation [...] CALCIUM (test code = CA) mg/dL 8.5-10.1 [id number] 10:52:00* Test Item Value Reference Range Interpretation Comments MAGNESIUM (test code = MAG) mg/dL 1.8-2.4 [id number] 07:27:00* Test Item Value Reference Range Interpretation Comments GLUBED (test code = GLUBED) 260 mg/dL 74-106 H Performed by certified vacuum drum drier operator at [facility] [id number] 20:43:00* Test Item Value Reference Range Interpretation Comments GLUBED (test code = GLUBED) 417 mg/dL 74-106 H Performed by certified vacuum drum drier operator at [facility] [id number] 15:54:00* Test Item Value Reference Range Interpretation Comments GLUBED (test code = GLUBED) 389 mg/dL 74-106 H Performed by certified vacuum drum drier operator at [facility] [id number] 12:24:00* Test Item Value Reference Range Interpretation Comments GLUBED (test code = GLUBED) 389 mg/dL 74-106 H Performed by certified vacuum drum drier operator at [facility] [id number] 07:56:00* Test Item Value Reference Range Interpretation Comments GLUBED (test code = GLUBED) 350 mg/dL 74-106 H Performed by certified vacuum drum drier operator at [facility] [id number] 04:10:00* Test Item Value Reference Range Interpretation Comments GLUBED (test code = GLUBED) 427 mg/dL 74-106 H Performed by certified vacuum drum drier operator at [facility] [id number] 19:56:00* Test Item Value Reference Range Interpretation Comments GLUBED (test code = GLUBED) 384 mg/dL 74-106 H Performed by certified vacuum drum drier operator at [facility] [id number] 16:27:00* Test Item Value Reference Range Interpretation Comments GLUBED (test code = GLUBED) 378 mg/dL 74-106 H Performed by certified vacuum drum drier operator at [facility] [id number] 12:06:00* Test Item Value Reference Range Interpretation Comments GLUBED (test code = GLUBED) 402 mg/dL 74-106 H Performed by certified vacuum drum drier operator at [facility]-[id number] 11:11:00* Test Item Value Reference Range Interpretation Comments TROPONIN-I (test code = TROPI) <0.015 ng/mL 0-0.045 N COMMENTS TO SEASONAL [place] BUNDLER: COLLECT 3 HOURS AFTER PREVIOUS SAMPLEURINALYSIS [id number] 08:30:00* Test Item Value Reference Range Interpretation [...] MUCU) FEW #/LPF FEW Urine Source? Clean [id number] 07:35:00* Test Item Value Reference Range Interpretation Comments TROPONIN-I (test code = TROPI) <0.015 ng/mL 0-0.045 N COMMENTS TO SEASONAL [place] BUNDLER: COLLECT 3 HOURS AFTER PREVIOUS [id number] 06:35:00* Test Item Value Reference Range Interpretation Comments GLUBED (test code = GLUBED) 298 mg/dL 74-106 H Performed by certified vacuum drum drier operator at [facility] BASIC METABOLIC [id number] 01:22:00* Test Item Value Reference Range Interpretation [...] CA) 8.5 mg/dL 8.5-10.1 N HEPATIC FUNCTION [id number] 01:22:00* Test Item Value Reference Range Interpretation [...] reference range due to change in reagent. [id number] 01:22:00* Test Item Value Reference Range Interpretation Comments LIPASE (test code = LIP) 143 U/L 73.0-393.0 N [id number] 01:22:00* Test Item Value Reference Range Interpretation Comments TROPONIN-I (test code = TROPI) <0.015 ng/mL 0-0.045 N BASIC METABOLIC [id number] 01:14:00* Test Item Value Reference Range Interpretation [...] code = CA) mg/dL 8.5-10.1 HEPATIC FUNCTION [id number] 01:14:00* Test Item Value Reference Range Interpretation [...] TOTAL (test code = ALKP) IUnit/L 45-117 [id number] 01:14:00* Test Item Value Reference Range Interpretation Comments LIPASE (test code = LIP) U/L 73.0-393.0 [id number] 01:14:00* Test Item Value Reference Range Interpretation Comments TROPONIN-I (test code = TROPI) ng/mL 0-0.045 B-TYPE NATRIURETIC [id number] 00:16:00* Test Item Value Reference Range Interpretation Comments B-TYPE NATRIURETIC PEPTIDE (test code = BNP) 43.43 pgram/mL 0-100 N PROTHROMBIN [id number] 23:21:00* Test Item Value Reference Range Interpretation [...] (2.5-3.5) IS PATIENT ON ANTICOAGULANTS? NTHROMBOPLASTIN TIME [id number] 23:21:00* Test Item Value Reference Range Interpretation Comments THROMBOPLASTIN TIME PARTIAL (test code = PTT) 28.8 seconds 25.0-36. 5 N IS PATIENT ON ANTICOAGULANTS? NCBC W/O [id number] 23:12:00* Test Item Value Reference Range Interpretation [...] fL 6.7-11.0 N - XR CHEST 1 [id number] 23:01:00 FAX: [facility] Nur Si [phone] [place]: St: [facility] FAX: Anastacio Burgess MD Name: KALYANI TALAVERA [facility] : 1955 Age/S: 64/F [address] [facility] Unit #: [id number] Loc: [place] [address] Phys: Anastacio Burgess MD Acct: [id number] Dis Date: Status: REG ER PHONE #: [phone] Exam Date: 06/07/2019 2250 FAX #: [phone] Reason: Abdominal Pain EXAMS: CPT CODE: [id number] XR CHEST 1 V 88999 EXAM: Chest x-ray, one view; INFORMATION: Vomiting; abdominal pain; FINDINGS: Increased densities of the left lung which may be due to edema or infiltrative changes. The right lung is slightly better aerated. Bilateral atelectatic changes. The heart is slightly enlarged. IMPRESSION: 1. Left pulmonary edema or possibly interstitial infiltrative changes and basilar atelectatic changes. 2. Mild cardiomegaly. Location code: [facility] at 2301 Reported and signed by: Jc Bravo M.D. CC: Lucille Nur MD; Anastacio Burgess MD Technologist: Marcelino Reid RT(R); SCOOBY PARSONS RT(R) Trnscrd Date/Time/By: 06/07/2019 (769) : By: Leanne GRW Orig Print D/T: S: 06/07/2019 (5706) PAGE 1 Signed Report - CT HEAD/BRAIN W/O [id number] 13:15:00 Name: KALYANI TALAVERA [facility] : 1955 Age/S: 64 / F [address] Unit #: [id number] Loc: [place] [address] Phys: Jessenia Be MD Acct: [id number] Dis Date: Status: REG ER PHONE #: [phone] Exam Date: 05/31/2019 1246 FAX #: [phone] Reason: pain, trauma EXAMS: CPT CODE: [id number] CT HEAD/BRAIN W/O CONT 60031 HISTORY: pain, trauma TECHNIQUE: Noncontrast 2.5 mm [...] unchanged from the prior examination. Location: [facility] at 1315 Reported and signed by: Dago Goodson MD CC: Lucille Land MD; Jessenia Be MD Technologist:Kael Bhardwaj RT(R) CTDI: DLP: Trnscb Date/Time: 05/31/2019 (3116) t.NADIAR.RR31 Orig Print D/T: S: 05/31/2019 (2840) PAGE 1 Signed Report GLUBED 2019-05-31 12:02:00* Test Item Value Reference Range Interpretation Comments GLUBED (test code = GLUBED) 200 mg/dL 74-106 H Performed by certified vacuum drum drier operator at [facility] [id number] 09:10:00* Test Item Value Reference Range Interpretation Comments GLUBED (test code = GLUBED) 83 mg/dL 74-106 N Performed by certified vacuum drum drier operator at [facility] [id number] 11:47:00* Test Item Value Reference Range Interpretation Comments GLUBED (test code = GLUBED) 192 mg/dL 74-106 H Performed by certified vacuum drum drier operator at [facility] [id number] 07:59:00* Test Item Value Reference Range Interpretation Comments GLUBED (test code = GLUBED) 164 mg/dL 74-106 H Performed by certified vacuum drum drier operator at [facility] [id number] 21:14:00* Test Item Value Reference Range Interpretation Comments GLUBED (test code = GLUBED) 215 mg/dL 74-106 H Performed by certified vacuum drum drier operator at [facility] [id number] 15:34:00* Test Item Value Reference Range Interpretation Comments GLUBED (test code = GLUBED) 130 mg/dL 74-106 H Performed by certified vacuum drum drier operator at [facility] [id number] 12:10:00* Test Item Value Reference Range Interpretation Comments GLUBED (test code = GLUBED) 231 mg/dL 74-106 H Performed by certified vacuum drum drier operator at [facility] [id number] 08:38:00* Test Item Value Reference Range Interpretation Comments GLUBED (test code = GLUBED) 173 mg/dL 74-106 H Performed by certified vacuum drum drier operator at [facility] [id number] 20:39:00* Test Item Value Reference Range Interpretation Comments GLUBED (test code = GLUBED) 129 mg/dL 74-106 H Performed by certified vacuum drum drier operator at [facility] [id number] 16:16:00* Test Item Value Reference Range Interpretation Comments GLUBED (test code = GLUBED) 337 mg/dL 74-106 H Performed by certified vacuum drum drier operator at [facility] [id number] 12:15:00* Test Item Value Reference Range Interpretation Comments GLUBED (test code = GLUBED) 247 mg/dL 74-106 H Performed by certified vacuum drum drier operator at [facility]2019-10-30 08:03:00* Test Item Value Reference Range Interpretation Comments GLUBED (test code = GLUBED) 170 mg/dL 74-106 H Performed by certified vacuum drum drier operator at [facility]2019-10-29 20:11:00* Test Item Value Reference Range Interpretation Comments GLUBED (test code = GLUBED) 244 mg/dL 74-106 H Performed by certified vacuum drum drier operator at [facility]2019-10-29 17:36:00* Test Item Value Reference Range Interpretation Comments GLUBED (test code = GLUBED) 238 mg/dL 74-106 H Performed by certified vacuum drum drier operator at [facility]2019-10-29 16:06:00* Test Item Value Reference Range Interpretation Comments GLUBED (test code = GLUBED) 196 mg/dL 74-106 H Performed by certified vacuum drum drier operator at [facility]2019-10-29 12:42:00* Test Item Value Reference Range Interpretation Comments GLUBED (test code = GLUBED) 292 mg/dL 74-106 H Performed by certified vacuum drum drier operator at [facility] [id number] 09:09:00* Test Item Value Reference Range Interpretation Comments GLUBED (test code = GLUBED) 196 mg/dL 74-106 H Performed by certified vacuum drum drier operator at [facility] [id number] 20:30:00* Test Item Value Reference Range Interpretation Comments GLUBED (test code = GLUBED) 213 mg/dL 74-106 H Performed by certified vacuum drum drier operator at [facility] [id number] 18:23:00* Test Item Value Reference Range Interpretation Comments GLUBED (test code = GLUBED) 102 mg/dL 74-106 N Performed by certified vacuum drum drier operator at [facility] [id number] 17:02:00* Test Item Value Reference Range Interpretation Comments GLUBED (test code = GLUBED) 181 mg/dL 74-106 H Performed by certified vacuum drum drier operator at [facility] BASIC METABOLIC [id number] 15:17:00* Test Item Value Reference Range Interpretation [...] CA) 9.3 mg/dL 8.5-10.1 N BASIC METABOLIC [id number] 15:08:00* Test Item Value Reference Range Interpretation [...] CALCIUM (test code = CA) mg/dL 8.5-10.1 [id number] 12:53:00* Test Item Value Reference Range Interpretation Comments GLUBED (test code = GLUBED) 262 mg/dL 74-106 H Performed by certified vacuum drum drier operator at [facility] [id number] 08:22:00* Test Item Value Reference Range Interpretation Comments GLUBED (test code = GLUBED) 198 mg/dL 74-106 H Performed by certified vacuum drum drier operator at [facility] CBC W/AUTO [id number] 06:43:00* Test Item Value Reference Range Interpretation [...] = MDIFF) NO, ONLY SCAN NEEDED DIFFERENTIAL [id number] 06:43:00* Test Item Value Reference Range Interpretation Comments STAIN ACCEPTABILITY (test code = STN ACCEPTABLE) STAIN ACCEPTABLE MORPHOLOGY COMMENT (test code = MOC) NORMAL PLATELET ESTIMATE (test code = PLTEST) ADEQUATE PLATELET MORPHOLOGY (test code = PLTMORPH) NORMAL COMPREHENSIVE METABOLIC [id number] 05:19:00* Test Item Value Reference Range Interpretation [...] due to change in reagent. COMPREHENSIVE METABOLIC [id number] 05:11:00* Test Item Value Reference Range Interpretation [...] code = ALKP) IUnit/L 45-117 CBC W/AUTO [id number] 04:49:00* Test Item Value Reference Range Interpretation [...] = MDIFF) NO, ONLY SCAN NEEDED DIFFERENTIAL [id number] 04:49:00* Test Item Value Reference Range Interpretation Comments STAIN ACCEPTABILITY (test code = STN ACCEPTABLE) CABOT RINGS (test code = CAB) MORPHOLOGY COMMENT (test code = MOC) PLATELET ESTIMATE (test code = PLTEST) PLATELET MORPHOLOGY (test code = PLTMORPH) CBC W/AUTO [id number] 04:49:00* Test Item Value Reference Range Interpretation [...] = MDIFF) NO, ONLY SCAN NEEDED DIFFERENTIAL [id number] 04:49:00* Test Item Value Reference Range Interpretation Comments STAIN ACCEPTABILITY (test code = STN ACCEPTABLE) CABOT RINGS (test code = CAB) MORPHOLOGY COMMENT (test code = MOC) PLATELET ESTIMATE (test code = PLTEST) PLATELET MORPHOLOGY (test code = PLTMORPH) CBC W/AUTO [id number] 04:49:00* Test Item Value Reference Range Interpretation [...] = MDIFF) NO, ONLY SCAN NEEDED DIFFERENTIAL [id number] 04:49:00* Test Item Value Reference Range Interpretation Comments STAIN ACCEPTABILITY (test code = STN ACCEPTABLE) MORPHOLOGY COMMENT (test code = MOC) PLATELET ESTIMATE (test code = PLTEST) PLATELET MORPHOLOGY (test code = PLTMORPH) CBC W/AUTO [id number] 04:49:00* Test Item Value Reference Range Interpretation [...] = MDIFF) NO, ONLY SCAN NEEDED DIFFERENTIAL [id number] 04:49:00* Test Item Value Reference Range Interpretation Comments STAIN ACCEPTABILITY (test code = STN ACCEPTABLE) CABOT RINGS (test code = CAB) MORPHOLOGY COMMENT (test code = MOC) PLATELET ESTIMATE (test code = PLTEST) PLATELET MORPHOLOGY (test code = PLTMORPH) [id number] 21:00:00* Test Item Value Reference Range Interpretation Comments GLUBED (test code = GLUBED) 245 mg/dL 74-106 H Performed by certified vacuum drum drier operator at [facility] [id number] 17:03:00* Test Item Value Reference Range Interpretation Comments GLUBED (test code = GLUBED) 110 mg/dL 74-106 H Performed by certified vacuum drum drier operator at [facility] [id number] 13:56:00* Test Item Value Reference Range Interpretation Comments MAGNESIUM (test code = MAG) 2.4 mg/dL 1.8-2.4 N [id number] 11:32:00* Test Item Value Reference Range Interpretation Comments GLUBED (test code = GLUBED) 327 mg/dL 74-106 H Performed by certified vacuum drum drier operator at [facility] [id number] 07:46:00* Test Item Value Reference Range Interpretation Comments GLUBED (test code = GLUBED) 294 mg/dL 74-106 H Performed by certified vacuum drum drier operator at [facility] COMPREHENSIVE METABOLIC [id number] 05:18:00* Test Item Value Reference Range Interpretation [...] result is a direct measurement.========= THYROID STIMULATING [id number] 05:18:00* Test Item Value Reference Range Interpretation Comments THYROID STIMULATING HORMONE (test code = TSH) 2.610 uIU/mL 0.36-3.7 4 N TSH REFERENCE RANGES: EUTHYROID: 0.35 - 4.3 mIU/mL HYPO : > 5.5 mIU/mL HYPER : < 0.35 mIU/mL [id number] 05:18:00* Test Item Value Reference Range Interpretation Comments GLYCOSYLATED HEMOGLOBIN (HA1C) (test code = GLYHGB) 9.0 % HbA1 4. 8-6.0 H ESTIMATED AVERAGE GLUCOSE (test code = EAG) 212 MG/DL CBC W/AUTO [id number] 04:33:00* Test Item Value Reference Range Interpretation [...] code = BA#) K/mm3 0.0-0.2 CBC W/AUTO [id number] 04:33:00* Test Item Value Reference Range Interpretation [...] code = NRBC#) 0.00 K/mm3 0.0-0.1 N [id number] 20:34:00* Test Item Value Reference Range Interpretation Comments GLUBED (test code = GLUBED) 106 mg/dL 74-106 N Performed by certified vacuum drum drier operator at [facility] [id number] 16:44:00* Test Item Value Reference Range Interpretation Comments GLUBED (test code = GLUBED) 290 mg/dL 74-106 H Performed by certified vacuum drum drier operator at [facility] [id number] 16:44:00* Test Item Value Reference Range Interpretation Comments GLUBED (test code = GLUBED) 276 mg/dL 74-106 H Performed by certified vacuum drum drier operator at [facility] T4 [id number] 16:31:00* Test Item Value Reference Range Interpretation Comments T4 FREE (test code = T4F) 1.06 ng/dL 0.76-1.46 N THYROID STIMULATING [id number] 16:31:00* Test Item Value Reference Range Interpretation Comments THYROID STIMULATING HORMONE (test code = TSH) 0.871 uIU/mL 0.36-3.7 4 N TSH REFERENCE RANGES: EUTHYROID: 0.35 - 4.3 mIU/mL HYPO : > 5.5 mIU/mL HYPER : < 0.35 mIU/mL [id number] 16:30:00* Test Item Value Reference Range Interpretation Comments GLYCOSYLATED HEMOGLOBIN (HA1C) (test code = GLYHGB) 9.8 % HbA1 4. 8-6.0 H ESTIMATED AVERAGE GLUCOSE (test code = EAG) 235 MG/DL [id number] 12:28:00* Test Item Value Reference Range Interpretation Comments GLUBED (test code = GLUBED) 282 mg/dL 74-106 H Performed by certified vacuum drum drier operator at [facility] [id number] 11:21:00* Test Item Value Reference Range Interpretation Comments MAGNESIUM (test code = MAG) 2.3 mg/dL 1.8-2.4 N [id number] 10:04:00* Test Item Value Reference Range Interpretation Comments TROPONIN-I (test code = TROPI) <0.015 ng/mL 0-0.045 N COMMENTS TO SEASONAL [place] BUNDLER: COLLECT 3 HOURS AFTER PREVIOUS [id number] 04:34:00* Test Item Value Reference Range Interpretation Comments TROPONIN-I (test code = TROPI) <0.015 ng/mL 0-0.045 N COMMENTS TO SEASONAL [place] BUNDLER: COLLECT 3 HOURS AFTER PREVIOUS [id number] 04:12:00* Test Item Value Reference Range Interpretation Comments GLUBED (test code = GLUBED) 257 mg/dL 74-106 H Performed by certified vacuum drum drier operator at [facility] - CT CHEST W/O [id number] 23:57:00 Name: KALYANI TALAVERA [facility] : 1955 Age/S: 64 / F [address] Unit #: [id number] Loc: [place] [address] Phys: Leonora Goins MD Acct: [id number] Dis Date: Status: REG ER PHONE #: [phone] Exam Date: 05/17/20192319 FAX #: [phone] Reason: shortneess of breath, weakness EXAMS: CPT CODE: [id number] CT CHEST W/O CONTRAST 29651 LOCATION: Q15 HISTORY: 64-year-old female who presents [...] 1 Signed Report (CONTINUED) Name: KALYANI TALAVERA [facility] : 1955 Age/S: 64 / F [address] Unit #: [id number] Loc: [place] [address] Phys: Leonora Goins MD Acct: [id number] Dis Date: S tatus: REG ER PHONE #: [phone] Exam Da te: 05/17/2019 2320 FAX #: [phone] Reason: shortn eess of breath, weakness EXAMS: CPT CODE: [id number] CT CHEST W/O CONTRAST 99605 <Continued> CC: Lucille Nur MD; Leonora Goins MD Technologist:RT EDUARDO CTDI: DLP: Trnscb Date/Time: 05/17/2019 (2353) t.[email or web address].RLA2 Orig Print D/T: S: 05/18/2019 (0000) PAGE 2 Signed Report [id number] 22:38:00* Test Item Value Reference Range Interpretation Comments GLUBED (test code = GLUBED) 373 mg/dL 74-106 H Performed by certified vacuum drum drier operator at [facility] [id number] 22:38:00* Test Item Value Reference Range Interpretation Comments GLUBED (test code = GLUBED) 422 mg/dL 74-106 H Performed by certified vacuum drum drier operator at [facility] - CT HEAD/BRAIN W/O [id number] 22:09:00 Name: KALYANI TALAVERA [facility] : 1955 Age/S: 64 / F [address] [facility] Unit #: [id number] Loc: [place] [address] Phys: Leonora Goins MD Acct: [id number] Dis Date: Status: REG ER PHONE #: [phone] Exam Date: 05/17/20192118 FAX #: [phone] Reason: weakness EXAMS: CPT CODE: [id number] CT HEAD/BRAIN W/O CONT 27388 HISTORY: weakness TECHNIQUE: Noncontrast 2.5 mm axial [...] or change from prior exam. Location: [facility] at 2209 Reported and signed by: Dago Goodson MD CC: Chris Nur MD; Leonora Goins MD Technologist:KIZZY VERDE, RT(R) CT CTDI: DLP: Trnscb Date/Time: 05/17/2019 (2208) [email or web address] Orig Print D/T: S: 05/17/2019 (4066) PAGE 1 Signed Report BASIC METABOLIC [id number] 22:03:00* Test Item Value Reference Range Interpretation [...] CA) 8.6 mg/dL 8.5-10.1 N HEPATIC FUNCTION [id number] 22:03:00* Test Item Value Reference Range Interpretation [...] reference range due to change in reagent. [id number] 22:03:00* Test Item Value Reference Range Interpretation Comments LIPASE (test code = LIP) 105 U/L 73.0-393.0 N [id number] 22:03:00* Test Item Value Reference Range Interpretation Comments TROPONIN-I (test code = TROPI) <0.015 ng/mL 0-0.045 N - XR CHEST 1 [id number] 22:01:00 FAX: Amish Nur, [place]: St: [facility] FAX: Leonora Norton [phone] Name: KALYANI TALAVERA [facility] : 1955 Age/S: 64/F [address] [facility] Unit #: [id number] Loc: [place] [address] Phys: Leonora Goins MD Acct: [id number] Dis Date: Status: REG ER PHONE #: [phone] Exam Date: 05/17/20192109 FAX #: [phone] Reason: WEAKNESS EXAMS: CPT CODE: [id number] XR CHEST 1 V 45387 REASON FOR EXAM: WEAKNESS Exam Order Date: 05/17/2019 8:44 PM Ordering M.DMayi: Leonora Goins MD PROCEDURE: - XR CHEST [...] secondary to diminished lung volumes. Location: [facility] at 2201 Reported and signed by: Dago Goodson MD CC: Lucille Land MD; Leonora Goins MD Technologist: EZEQUIEL CHAPA RT Trnscrd Date/Time/By: 05/17/2019 (2200) : By: LeanneRR31 Orig Print D/T: S: 05/17/2019 (6100) PAGE 1 Signed Report URINALYSIS [id number] 21:54:00* Test Item Value Reference Range Interpretation [...] #/HPF NONE Urine Source? Clean CatchBASIC METABOLIC [id number] 21:42:00* Test Item Value Reference Range Interpretation [...] code = CA) mg/dL 8.5-10.1 HEPATIC FUNCTION [id number] 21:42:00* Test Item Value Reference Range Interpretation [...] TOTAL (test code = ALKP) IUnit/L 45-117 [id number] 21:42:00* Test Item Value Reference Range Interpretation Comments LIPASE (test code = LIP) U/L 73.0-393.0 [id number] 21:42:00* Test Item Value Reference Range Interpretation Comments TROPONIN-I (test code = TROPI) ng/mL 0-0.045 CBC W/O [id number] 21:33:00* Test Item Value Reference Range Interpretation [...] code = MPV) 10.9 fL 6.7-11.0 N [id number] 02:14:00* Test Item Value Reference Range Interpretation Comments GLUBED (test code = GLUBED) 359 mg/dL 74-106 H Performed by certified vacuum drum drier operator at [facility] [id number] 01:04:00* Test Item Value Reference Range Interpretation Comments GLUBED (test code = GLUBED) 484 mg/dL 74-106 H Performed by certified vacuum drum drier operator at [facility] URINALYSIS [id number] 00:11:00* Test Item Value Reference Range Interpretation [...] per HPF NONE Urine Source? Clean CatchURINALYSIS [id number] 00:07:00* Test Item Value Reference Range Interpretation [...] HPF NONE Urine Source? Clean CatchBASIC METABOLIC [id number] 23:16:00* Test Item Value Reference Range Interpretation [...] CA) 8.6 mg/dL 8.5-10.1 N HEPATIC FUNCTION [id number] 23:16:00* Test Item Value Reference Range Interpretation [...] reference range due to change in reagent. [id number] 23:16:00* Test Item Value Reference Range Interpretation Comments TROPONIN-I (test code = TROPI) <0.015 ng/mL 0-0.045 N BASIC METABOLIC [id number] 22:52:00* Test Item Value Reference Range Interpretation [...] code = CA) mg/dL 8.5-10.1 HEPATIC FUNCTION [id number] 22:52:00* Test Item Value Reference Range Interpretation [...] TOTAL (test code = ALKP) IUnit/L 45-117 [id number] 22:52:00* Test Item Value Reference Range Interpretation Comments TROPONIN-I (test code = TROPI) ng/mL 0-0.045 - CT HEAD/BRAIN W/O [id number] 22:44:00 Name: KALYANI TALAVERA [facility] : 1955 Age/S: 64 / F [address] [facility] Unit #: [id number] Loc: [place] [address] Phys: Vince Jones DO Acct: [id number] Dis Date: Status: REG ER PHONE #: [phone] Exam Date: 04/30/20192231 FAX #: [phone] Reason: headache/blurry vision EXAMS: CPT CODE: [id number] CT HEAD/BRAIN W/O CONT 00890 HISTORY: headache/blurry vision TECHNIQUE: Noncontrast 2.5 mm [...] Chavez CTDI: DL P: Trnscb Date/Time: 04/30/2019 (5136) t.SDR.RR31 O rig Print D/T: S: 04/30/2019 (6512) PAGE 1 Signed Re port CBC W/AUTO [id number] 22:43:00* Test Item Value Reference Range Interpretation [...] DIFF REQUIRED (test code = MDIFF) NO [id number] 22:16:00* Test Item Value Reference Range Interpretation Comments GLUBED (test code = GLUBED) > 500 mg/dL 74-106 HH Performed by certified vacuum drum drier [facility]ified Nurse~ KNEE RIGHT THREE [id number] 04:11:00 [place] [address] Patient Name: KALYANI TALAVERA MR #: [id number] : 1955 Age/Sex: 64/F Req #: [id number] Adm Physician: Ordered by: JACQUES JANE MD Report #: [id number] Location: ER Room/Bed: Procedure: 100 06 DX/KNEE RIGHT THREE VIEWS Exam Date: [...] 04/27/19411 COPY TO: JACQUES JANE MD Bedside [id number] 04:02:00* Test Item Value Reference Range Interpretation Comments Bedside Glucose (test code = 57878-1) 387 70-120 H Meter ID: [id number] [facility] 2019-04-18 04:02:00* Test Item Value Reference Range Interpretation Comments Bedside Glucose (test code = 14158-4) 387 70-120 H Meter ID: [id number] [facility] Glucose 2019-03-15 03:09:00* Test Item Value Reference Range Interpretation Comments Bedside Glucose (test code = 24789-1) 272 70-120 H Meter ID: [id number] [facility] Glucose 2019-03-15 03:09:00* Test Item Value Reference Range Interpretation Comments Bedside Glucose (test code = 25023-7) 272 70-120 H Meter ID: [id number] [facility]2019-03-15 03:03:00 [facility] [address] [place] [address] Patient Name: KALYANI TALAVERA MR #: [id number] : 1955 Age/Sex: 64/F Req #: [id number] Adm Physician: Ordered by: JACQUES JANE MD Report #: [id number] Location: ER Room/Bed: Procedure: DX/CHEST SINGLE (PORTABLE) [...] 03/15/19313 COPY TO: JACQUES JANE MD Sodium [id number] 02:29:00* Test Item Value Reference Range Interpretation Comments Sodium Level (test code = 2951-2) 134 136-145 L [facility] Nictd2294-72-73 02:29:00* Test Item Value Reference Range Interpretation Comments Potassium Level (test code = 2823-3) 4.2 3.5-5.1 [facility] CenterChloride Vcorv9391-14-25 02:29:00* Test Item Value Reference Range Interpretation Comments Chloride Level (test code = 2075-0) 99 98-107 [facility] CenterCarbon Dioxide Fgkht8203-52-50 02:29:00* Test Item Value Reference Range Interpretation Comments Carbon Dioxide Level (test code = 2028-9) 25 22-29 [facility] CenterAnion Cqe2243-24-05 02:29:00* Test Item Value Reference Range Interpretation Comments Anion Gap (test code = 61038-8) 14.2 8-16 [facility] CenterBlood Urea Riowvohc7730-42-23 02:29:00* Test Item Value Reference Range Interpretation Comments Blood Urea Nitrogen (test code = 3094-0) 26 7-26 [facility] CenterCreatinine2019-08-23 02:29:00* Test Item Value Reference Range Interpretation Comments Creatinine (test code = 2160-0) 1.11 0.57-1.11 [facility] CenterBUN/Creatinine Evgnx8083-71-30 02:29:00* Test Item Value Reference Range Interpretation Comments BUN/Creatinine Ratio (test code = 3097-3) 23 6-25 [facility] CenterEstimat Glomerular Filtration Rate 2019-03-15 02:29:00* Test Item Value Reference Range Interpretation Comments Estimat Glomerular Filtration Rate (test code = 693962559) 50 >60 L Ranges were taken from the National Kidney Disease Education Program and the [facility] Foundation literature.Reference ranges:60 or greater: Lyksdm84-78 ( for 3 consecutive months): Chronic kidney disease 15 or less: Kidney failureMemorial Hermann–[facility] Medical CenterGlucose Jdlmp1555-26-33 02:29:00* Test Item Value Reference Range Interpretation Comments Glucose Level (test code = [id number]) 557 74-118 Results repeated and called to THELMA DONALDSON RN at 0229 on 03/15/19 by Francoise Proctor. Read back and verified.[facility] CenterCalcium Ripjt0824-81-64 02:29:00* Test Item Value Reference Range Interpretation Comments Calcium Level (test code = 03518-3) 8.8 8.4-10.2 [facility] Dwswu0707-77-54 02:29:00* Test Item Value Reference Range Interpretation Comments Sodium Level (test code = 2951-2) 134 136-145 L [facility] CenterPotassium Zutks4308-28-40 02:29:00* Test Item Value Reference Range Interpretation Comments Potassium Level (test code = 2823-3) 4.2 3.5-5.1 [facility] CenterChloride Ipzkc6473-43-03 02:29:00* Test Item Value Reference Range Interpretation Comments Chloride Level (test code = 2075-0) 99 98-107 [facility] CenterCarbon Dioxide Bsslc6457-38-26 02:29:00* Test Item Value Reference Range Interpretation Comments Carbon Dioxide Level (test code = 2028-9) 25 22-29 [facility] CenterAnion Hno8536-64-15 02:29:00* Test Item Value Reference Range Interpretation Comments Anion Gap (test code = 88691-2) 14.2 8-16 [facility] CenterBlood Urea Xoymfegs6568-93-55 02:29:00* Test Item Value Reference Range Interpretation Comments Blood Urea Nitrogen (test code = 3094-0) 26 7-26 [facility] CenterCreatinine2019-08-23 02:29:00* Test Item Value Reference Range Interpretation Comments Creatinine (test code = 2160-0) 1.11 0.57-1.11 [facility] CenterBUN/Creatinine Dkuki7146-29-66 02:29:00* Test Item Value Reference Range Interpretation Comments BUN/Creatinine Ratio (test code = 3097-3) 23 6- [facility] CenterEstimat Glomerular Filtration Rate 2019-03-15 02:29:00* Test Item Value Reference Range Interpretation Comments Estimat Glomerular Filtration Rate (test code = 256328170) 50 >60 L Ranges were taken from the National Kidney Disease Education Program and the [facility] Foundation literature.Reference ranges:60 or greater: Hijrnt44-85 ( for 3 consecutive months): Chronic kidney disease 15 or less: Kidney failureMem[facility] Hermann–[facility] Medical CenterGlucose Ywhfo9229-32-11 02:29:00* Test Item Value Reference Range Interpretation Comments Glucose Level (test code = TNU3587) 559 74-118 Results repeated and called to THELMA DONALDSON RN at 0229 on 03/15/19 by Francoise Proctor. Read back and verified.[facility] CenterCalcium Lwrpc8941-71-99 02:29:00* Test Item Value Reference Range Interpretation Comments Calcium Level (test code = 85836-7) 8.8 8.4-10.2 [facility] Nhftm7497-11-82 02:29:00* Test Item Value Reference Range Interpretation Comments Sodium Level (test code = 2951-2) 134 136-145 L [facility] CenterPotassium Zxzzb3780-96-08 02:29:00* Test Item Value Reference Range Interpretation Comments Potassium Level (test code = 2823-3) 4.2 3.5-5.1 [facility] CenterChloride Zsyyj3823-65-87 02:29:00* Test Item Value Reference Range Interpretation Comments Chloride Level (test code = 2075-0) 99 98-107 [facility] CenterCarbon Dioxide Qkwno4408-38-04 02:29:00* Test Item Value Reference Range Interpretation Comments Carbon Dioxide Level (test code = 2028-9) 25 22-29 [facility] CenterAnion Xtd2613-27-34 02:29:00* Test Item Value Reference Range Interpretation Comments Anion Gap (test code = 70269-8) 14.2 8-16 [facility] CenterBlood Urea Munogxss3612-58-94 02:29:00* Test Item Value Reference Range Interpretation Comments Blood Urea Nitrogen (test code = 3094-0) 26 7-26 [facility] CenterCreatinine2019-08-23 02:29:00* Test Item Value Reference Range Interpretation Comments Creatinine (test code = 2160-0) 1.11 0.57-1.11 [facility] CenterBUN/Creatinine Ttozo1601-87-31 02:29:00* Test Item Value Reference Range Interpretation Comments BUN/Creatinine Ratio (test code = 3097-3) 23 6- [facility] CenterEstimat Glomerular Filtration Rate 2019-03-15 02:29:00* Test Item Value Reference Range Interpretation Comments Estimat Glomerular Filtration Rate (test code = 989072986) 50 >60 L Ranges were taken from the National Kidney Disease Education Program and the [facility] Kid[facility] Foundation literature.Reference ranges:60 or greater: Qqqakz46-46 ( for 3 consecutive months): Chronic kidney disease 15 or less: Kidney failureMem[facility] Hermann–[facility] Medical CenterGlucose Tjwgn1563-65-76 02:29:00* Test Item Value Reference Range Interpretation Comments Glucose Level (test code = DOJ0174) 559 74-118 Results repeated and called to THELMA DONALDSON RN at 0229 on 03/15/19 by Francoise Proctor. Read back and verified.[facility] CenterCalcium Cefkr8350-60-98 02:29:00* Test Item Value Reference Range Interpretation Comments Calcium Level (test code = 57775-5) 8.8 8.4-10.2 [facility] Fnmfq6587-59-21 02:29:00* Test Item Value Reference Range Interpretation Comments Sodium Level (test code = 2951-2) 134 136-145 L [facility] CenterPotassium Ytbyl3693-95-11 02:29:00* Test Item Value Reference Range Interpretation Comments Potassium Level (test code = 2823-3) 4.2 3.5-5.1 [facility] CenterChloride Acvai1771-00-62 02:29:00* Test Item Value Reference Range Interpretation Comments Chloride Level (test code = 2075-0) 99 98-107 [facility] CenterCarbon Dioxide Rmtvu1074-74-11 02:29:00* Test Item Value Reference Range Interpretation Comments Carbon Dioxide Level (test code = 2028-9) 25 22-29 [facility] CenterAnion Cpx5354-22-14 02:29:00* Test Item Value Reference Range Interpretation Comments Anion Gap (test code = 79056-5) 14.2 8-16 [facility] CenterBlood Urea Qqzskhal2893-91-75 02:29:00* Test Item Value Reference Range Interpretation Comments Blood Urea Nitrogen (test code = 3094-0) 26 7-26 [facility] CenterCreatinine2019-08-23 02:29:00* Test Item Value Reference Range Interpretation Comments Creatinine (test code = 2160-0) 1.11 0.57-1.11 [facility] CenterBUN/Creatinine Jjigg2025-08-99 02:29:00* Test Item Value Reference Range Interpretation Comments BUN/Creatinine Ratio (test code = 3097-3) 23 6-25 [facility] CenterEstimat Glomerular Filtration Rate 2019-03-15 02:29:00* Test Item Value Reference Range Interpretation Comments Estimat Glomerular Filtration Rate (test code = 529907131) 50 >60 L Ranges were taken from the National Kidney Disease Education Program and the [facility] Kid[facility] Foundation literature.Reference ranges:60 or greater: Arpehq76-12 ( for 3 consecutive months): Chronic kidney disease 15 or less: Kidney failureMemorial Hermann–[facility] Medical CenterGlucose Nxvhq1291-11-77 02:29:00* Test Item Value Reference Range Interpretation Comments Glucose Level (test code = RLG3458) 559 74-118 HH Results repeated and called to THELMA DONALDSON RN at 0229 on 03/15/19 by Francoise Proctor. Read back and verified.[facility] CenterCalcium Rdqle3081-73-92 02:29:00* Test Item Value Reference Range Interpretation Comments Calcium Level (test code = 11986-9) 8.8 8.4-10.2 [facility] CenterWhite Blood Ockja9992-70-93 02:16:00* Test Item Value Reference Range Interpretation Comments White Blood Count (test code = 6690-2) 5.52 4.8-10.8 [facility] CenterRed Blood Eszva7269-71-35 02:16:00* Test Item Value Reference Range Interpretation Comments Red Blood Count (test code = 789-8) 4.47 3.6-5.1 [facility] CenterHemoglobin2019-08-23 02:16:00* Test Item Value Reference Range Interpretation Comments Hemoglobin (test code = 26035-6) 11.3 12.0-16.0 L [facility] CenterHematocrit2019-08-23 02:16:00* Test Item Value Reference Range Interpretation Comments Hematocrit (test code = 4544-3) 38.1 34.2-44.1 [facility] CenterMean Corpuscular Mgrnsw7386-84-17 02:16:00* Test Item Value Reference Range Interpretation Comments Mean Corpuscular Volume (test code = 787-2) 85.2 81-99 [facility] CenterMean Corpuscular Aqcacwgudu8102-13-13 02:16:00* Test Item Value Reference Range Interpretation Comments Mean Corpuscular Hemoglobin (test code = 785-6) 25.3 28-32 L [facility] CenterMean Corpuscular Hemoglobin Concent 2019-03-15 02:16:00* Test Item Value Reference Range Interpretation Comments Mean Corpuscular Hemoglobin Concent (test code = 786-4) 29.7 31-35 L [facility] CenterRed Cell Distribution Smcfv9424-47-06 02:16:00* Test Item Value Reference Range Interpretation Comments Red Cell Distribution Width (test code = 68969-0) 16.0 11.7 -14.4 H [facility] CenterPlatelet Uaqpw3172-30-26 02:16:00* Test Item Value Reference Range Interpretation Comments Platelet Count (test code = 777-3) 175 140-360 [facility] CenterNeutrophils (%) (Auto)2019-03-15 02:16:00 * Test Item Value Reference Range Interpretation Comments Neutrophils (%) (Auto) (test code = 86379-3) 71.8 38.7-80.0 [facility] CenterLymphocytes (%) (Auto)2019-03-15 02:16:00 * Test Item Value Reference Range Interpretation Comments Lymphocytes (%) (Auto) (test code = 736-9) 20.1 18.0-39.1 [facility] CenterMonocytes (%) (Auto)2019-03-15 02:16:00* Test Item Value Reference Range Interpretation Comments Monocytes (%) (Auto) (test code = 5905-5) 3.8 4.4-11.3 L [facility] CenterEosinophils (%) (Auto)2019-03-15 02:16:00 * Test Item Value Reference Range Interpretation Comments Eosinophils (%) (Auto) (test code = 713-8) 1.8 0.0-6.0 [facility] CenterBasophils (%) (Auto)2019-03-15 02:16:00* Test Item Value Reference Range Interpretation Comments Basophils (%) (Auto) (test code = 706-2) 0.9 0.0-1.0 [facility] CenterIM GRANULOCYTES %2019-03-15 02:16:00* Test Item Value Reference Range Interpretation Comments IM GRANULOCYTES % (test code = IM GRANULOCYTES %) 1.6 0.0- 1.0 H [facility] CenterNeutrophils # (Auto)2019-03-15 02:16:00* Test Item Value Reference Range Interpretation Comments Neutrophils # (Auto) (test code = 751-8) 4.0 2.1-6.9 [facility] CenterLymphocytes # (Auto)2019-03-15 02:16:00* Test Item Value Reference Range Interpretation Comments Lymphocytes # (Auto) (test code = 60505-0) 1.1 1.0-3.2 [facility] CenterMonocytes # (Auto)2019-03-15 02:16:00* Test Item Value Reference Range Interpretation Comments Monocytes # (Auto) (test code = 742-7) 0.2 0.2-0.8 [facility] CenterEosinophils # (Auto)2019-03-15 02:16:00* Test Item Value Reference Range Interpretation Comments Eosinophils # (Auto) (test code = 711-2) 0.1 0.0-0.4 [facility] CenterBasophils # (Auto)2019-03-15 02:16:00* Test Item Value Reference Range Interpretation Comments Basophils # (Auto) (test code = 704-7) 0.1 0.0-0.1 [facility] CenterAbsolute Immature Granulocyte (auto 2019-03-15 02:16:00* Test Item Value Reference Range Interpretation Comments Absolute Immature Granulocyte (auto (joseph t code = Absolute Immature Granulocyte (auto) 0.09 0-0.1 [facility] CenterWhite Blood Zukwu3365-96-42 02:16:00* Test Item Value Reference Range Interpretation Comments White Blood Count (test code = 6690-2) 5.52 4.8-10.8 [facility] CenterRed Blood Rejki4596-96-58 02:16:00* Test Item Value Reference Range Interpretation Comments Red Blood Count (test code = 789-8) 4.47 3.6-5.1 [facility] CenterHemoglobin2019-08-23 02:16:00* Test Item Value Reference Range Interpretation Comments Hemoglobin (test code = 81524-0) 11.3 12.0-16.0 L [facility] CenterHematocrit2019-08-23 02:16:00* Test Item Value Reference Range Interpretation Comments Hematocrit (test code = 4544-3) 38.1 34.2-44.1 [facility] CenterMean Corpuscular Wgdfvt9207-77-06 02:16:00* Test Item Value Reference Range Interpretation Comments Mean Corpuscular Volume (test code = 787-2) 85.2 81-99 [facility] CenterMean Corpuscular Hcgxuqrqdg5162-43-57 02:16:00* Test Item Value Reference Range Interpretation Comments Mean Corpuscular Hemoglobin (test code = 785-6) 25.3 28-32 L [facility] CenterMean Corpuscular Hemoglobin Concent 2019-03-15 02:16:00* Test Item Value Reference Range Interpretation Comments Mean Corpuscular Hemoglobin Concent (test code = 786-4) 29.7 31-35 L [facility] CenterRed Cell Distribution Zghxq5299-44-42 02:16:00* Test Item Value Reference Range Interpretation Comments Red Cell Distribution Width (test code = 80740-6) 16.0 11.7 -14.4 H [facility] CenterPlatelet Hphpz1882-04-82 02:16:00* Test Item Value Reference Range Interpretation Comments Platelet Count (test code = 777-3) 175 140-360 [facility] CenterNeutrophils (%) (Auto)2019-03-15 02:16:00 * Test Item Value Reference Range Interpretation Comments Neutrophils (%) (Auto) (test code = 32949-3) 71.8 38.7-80.0 [facility] CenterLymphocytes (%) (Auto)2019-03-15 02:16:00 * Test Item Value Reference Range Interpretation Comments Lymphocytes (%) (Auto) (test code = 736-9) 20.1 18.0-39.1 [facility] CenterMonocytes (%) (Auto)2019-03-15 02:16:00* Test Item Value Reference Range Interpretation Comments Monocytes (%) (Auto) (test code = 5905-5) 3.8 4.4-11.3 L [facility] CenterEosinophils (%) (Auto)2019-03-15 02:16:00 * Test Item Value Reference Range Interpretation Comments Eosinophils (%) (Auto) (test code = 713-8) 1.8 0.0-6.0 [facility] CenterBasophils (%) (Auto)2019-03-15 02:16:00* Test Item Value Reference Range Interpretation Comments Basophils (%) (Auto) (test code = 706-2) 0.9 0.0-1.0 [facility] CenterIM GRANULOCYTES %2019-03-15 02:16:00* Test Item Value Reference Range Interpretation Comments IM GRANULOCYTES % (test code = IM GRANULOCYTES %) 1.6 0.0- 1.0 H [facility] CenterNeutrophils # (Auto)2019-03-15 02:16:00* Test Item Value Reference Range Interpretation Comments Neutrophils # (Auto) (test code = 751-8) 4.0 2.1-6.9 [facility] CenterLymphocytes # (Auto)2019-03-15 02:16:00* Test Item Value Reference Range Interpretation Comments Lymphocytes # (Auto) (test code = 90983-3) 1.1 1.0-3.2 [facility] CenterMonocytes # (Auto)2019-03-15 02:16:00* Test Item Value Reference Range Interpretation Comments Monocytes # (Auto) (test code = 742-7) 0.2 0.2-0.8 [facility] CenterEosinophils # (Auto)2019-03-15 02:16:00* Test Item Value Reference Range Interpretation Comments Eosinophils # (Auto) (test code = 711-2) 0.1 0.0-0.4 [facility] CenterBasophils # (Auto)2019-03-15 02:16:00* Test Item Value Reference Range Interpretation Comments Basophils # (Auto) (test code = 704-7) 0.1 0.0-0.1 [facility] CenterAbsolute Immature Granulocyte (auto 2019-03-15 02:16:00* Test Item Value Reference Range Interpretation Comments Absolute Immature Granulocyte (auto (joseph t code = Absolute Immature Granulocyte (auto) 0.09 0-0.1 [facility] CenterWhite Blood Jiipw4246-06-00 02:16:00* Test Item Value Reference Range Interpretation Comments White Blood Count (test code = 6690-2) 5.52 4.8-10.8 [facility] CenterRed Blood Npbyx2834-00-47 02:16:00* Test Item Value Reference Range Interpretation Comments Red Blood Count (test code = 789-8) 4.47 3.6-5.1 [facility] CenterHemoglobin2019-08-23 02:16:00* Test Item Value Reference Range Interpretation Comments Hemoglobin (test code = 92282-2) 11.3 12.0-16.0 L [facility] CenterHematocrit2019-08-23 02:16:00* Test Item Value Reference Range Interpretation Comments Hematocrit (test code = 4544-3) 38.1 34.2-44.1 [facility] CenterMean Corpuscular Ehqanq4110-92-05 02:16:00* Test Item Value Reference Range Interpretation Comments Mean Corpuscular Volume (test code = 787-2) 85.2 81-99 [facility] CenterMean Corpuscular Ylilrruztx3709-17-47 02:16:00* Test Item Value Reference Range Interpretation Comments Mean Corpuscular Hemoglobin (test code = 785-6) 25.3 28-32 L [facility] CenterMean Corpuscular Hemoglobin Concent 2019-03-15 02:16:00* Test Item Value Reference Range Interpretation Comments Mean Corpuscular Hemoglobin Concent (test code = 786-4) 29.7 31-35 L [facility] CenterRed Cell Distribution Ogkxw8882-46-08 02:16:00* Test Item Value Reference Range Interpretation Comments Red Cell Distribution Width (test code = 39034-0) 16.0 11.7 -14.4 H [facility] CenterPlatelet Mriwe8122-08-42 02:16:00* Test Item Value Reference Range Interpretation Comments Platelet Count (test code = 777-3) 175 140-360 [facility] CenterNeutrophils (%) (Auto)2019-03-15 02:16:00 * Test Item Value Reference Range Interpretation Comments Neutrophils (%) (Auto) (test code = 57490-9) 71.8 38.7-80.0 [facility] CenterLymphocytes (%) (Auto)2019-03-15 02:16:00 * Test Item Value Reference Range Interpretation Comments Lymphocytes (%) (Auto) (test code = 736-9) 20.1 18.0-39.1 [facility] CenterMonocytes (%) (Auto)2019-03-15 02:16:00* Test Item Value Reference Range Interpretation Comments Monocytes (%) (Auto) (test code = 5905-5) 3.8 4.4-11.3 L [facility] CenterEosinophils (%) (Auto)2019-03-15 02:16:00 * Test Item Value Reference Range Interpretation Comments Eosinophils (%) (Auto) (test code = 713-8) 1.8 0.0-6.0 [facility] CenterBasophils (%) (Auto)2019-03-15 02:16:00* Test Item Value Reference Range Interpretation Comments Basophils (%) (Auto) (test code = 706-2) 0.9 0.0-1.0 [facility] CenterIM GRANULOCYTES %2019-03-15 02:16:00* Test Item Value Reference Range Interpretation Comments IM GRANULOCYTES % (test code = IM GRANULOCYTES %) 1.6 0.0- 1.0 H [facility] CenterNeutrophils # (Auto)2019-03-15 02:16:00* Test Item Value Reference Range Interpretation Comments Neutrophils # (Auto) (test code = 751-8) 4.0 2.1-6.9 [facility] CenterLymphocytes # (Auto)2019-03-15 02:16:00* Test Item Value Reference Range Interpretation Comments Lymphocytes # (Auto) (test code = 14768-5) 1.1 1.0-3.2 [facility] CenterMonocytes # (Auto)2019-03-15 02:16:00* Test Item Value Reference Range Interpretation Comments Monocytes # (Auto) (test code = 742-7) 0.2 0.2-0.8 [facility] CenterEosinophils # (Auto)2019-03-15 02:16:00* Test Item Value Reference Range Interpretation Comments Eosinophils # (Auto) (test code = 711-2) 0.1 0.0-0.4 [facility] CenterBasophils # (Auto)2019-03-15 02:16:00* Test Item Value Reference Range Interpretation Comments Basophils # (Auto) (test code = 704-7) 0.1 0.0-0.1 [facility] CenterAbsolute Immature Granulocyte (auto 2019-03-15 02:16:00* Test Item Value Reference Range Interpretation Comments Absolute Immature Granulocyte (auto (joseph t code = Absolute Immature Granulocyte (auto) 0.09 0-0.1 [facility] CenterWhite Blood Xgztx3561-32-18 02:16:00* Test Item Value Reference Range Interpretation Comments White Blood Count (test code = 6690-2) 5.52 4.8-10.8 [facility] CenterRed Blood Dmjos8325-34-59 02:16:00* Test Item Value Reference Range Interpretation Comments Red Blood Count (test code = 789-8) 4.47 3.6-5.1 [facility] CenterHemoglobin2019-08-23 02:16:00* Test Item Value Reference Range Interpretation Comments Hemoglobin (test code = 29057-4) 11.3 12.0-16.0 L [facility] CenterHematocrit2019-08-23 02:16:00* Test Item Value Reference Range Interpretation Comments Hematocrit (test code = 4544-3) 38.1 34.2-44.1 [facility] CenterMean Corpuscular Xhhtja0955-51-58 02:16:00* Test Item Value Reference Range Interpretation Comments Mean Corpuscular Volume (test code = 787-2) 85.2 81-99 [facility] CenterMean Corpuscular Lfgxolnfxd9975-76-06 02:16:00* Test Item Value Reference Range Interpretation Comments Mean Corpuscular Hemoglobin (test code = 785-6) 25.3 28-32 L [facility] CenterMean Corpuscular Hemoglobin Concent 2019-03-15 02:16:00* Test Item Value Reference Range Interpretation Comments Mean Corpuscular Hemoglobin Concent (test code = 786-4) 29.7 31-35 L [facility] CenterRed Cell Distribution Visvx1792-63-17 02:16:00* Test Item Value Reference Range Interpretation Comments Red Cell Distribution Width (test code = 46711-7) 16.0 11.7 -14.4 H [facility] CenterPlatelet Nerfz1304-05-00 02:16:00* Test Item Value Reference Range Interpretation Comments Platelet Count (test code = 777-3) 175 140-360 [facility] CenterNeutrophils (%) (Auto)2019-03-15 02:16:00 * Test Item Value Reference Range Interpretation Comments Neutrophils (%) (Auto) (test code = 35419-9) 71.8 38.7-80.0 [facility] CenterLymphocytes (%) (Auto)2019-03-15 02:16:00 * Test Item Value Reference Range Interpretation Comments Lymphocytes (%) (Auto) (test code = 736-9) 20.1 18.0-39.1 [facility] CenterMonocytes (%) (Auto)2019-03-15 02:16:00* Test Item Value Reference Range Interpretation Comments Monocytes (%) (Auto) (test code = 5905-5) 3.8 4.4-11.3 L [facility] CenterEosinophils (%) (Auto)2019-03-15 02:16:00 * Test Item Value Reference Range Interpretation Comments Eosinophils (%) (Auto) (test code = 713-8) 1.8 0.0-6.0 [facility] CenterBasophils (%) (Auto)2019-03-15 02:16:00* Test Item Value Reference Range Interpretation Comments Basophils (%) (Auto) (test code = 706-2) 0.9 0.0-1.0 [facility] CenterIM GRANULOCYTES %2019-03-15 02:16:00* Test Item Value Reference Range Interpretation Comments IM GRANULOCYTES % (test code = IM GRANULOCYTES %) 1.6 0.0- 1.0 H [facility] CenterNeutrophils # (Auto)2019-03-15 02:16:00* Test Item Value Reference Range Interpretation Comments Neutrophils # (Auto) (test code = 751-8) 4.0 2.1-6.9 [facility] CenterLymphocytes # (Auto)2019-03-15 02:16:00* Test Item Value Reference Range Interpretation Comments Lymphocytes # (Auto) (test code = 99924-6) 1.1 1.0-3.2 [facility] CenterMonocytes # (Auto)2019-03-15 02:16:00* Test Item Value Reference Range Interpretation Comments Monocytes # (Auto) (test code = 742-7) 0.2 0.2-0.8 [facility] CenterEosinophils # (Auto)2019-03-15 02:16:00* Test Item Value Reference Range Interpretation Comments Eosinophils # (Auto) (test code = 711-2) 0.1 0.0-0.4 [facility] CenterBasophils # (Auto)2019-03-15 02:16:00* Test Item Value Reference Range Interpretation Comments Basophils # (Auto) (test code = 704-7) 0.1 0.0-0.1 [facility] CenterAbsolute Immature Granulocyte (auto 2019-03-15 02:16:00* Test Item Value Reference Range Interpretation Comments Absolute Immature Granulocyte (auto (joseph t code = Absolute Immature Granulocyte (auto) 0.09 0-0.1 [facility] CenterBedside Umpmvqq9028-08-15 05:15:00* Test Item Value Reference Range Interpretation Comments Bedside Glucose (test code = 22618-0) 329 70-120 H Meter ID: [id number] Hermann–[facility] CenterFOREARM LEFT 2 VIEW 2019-02-24 01:23:00 [place] [address] Patient Name: KALYANI TALAVERA MR #: [id number] : 1955 Age/Sex: 63/F Req #: [id number] Adm Physician: Ordered by: JACQUES JANE MD Report #: [id number] Location: ER Room/Bed: Procedure: 43 DX/FOREARM LEFT [...] 02/24/19123 COPY TO: JACQUES JANE MD Sodium Ycsro9468-51-01 00:35:00* Test Item Value Reference Range Interpretation Comments Sodium Level (test code = 2951-2) 135 136-145 L [facility] CenterPotassium Tofks6829-19-13 00:35:00* Test Item Value Reference Range Interpretation Comments Potassium Level (test code = 2823-3) 4.4 3.5-5.1 [facility] CenterChloride Vnhyy9654-47-93 00:35:00* Test Item Value Reference Range Interpretation Comments Chloride Level (test code = 2075-0) 102 98-107 [facility] CenterCarbon Dioxide Qwsat3908-35-15 00:35:00* Test Item Value Reference Range Interpretation Comments Carbon Dioxide Level (test code = 2028-9) 21 22-29 L [facility] CenterAnion Dre5939-22-57 00:35:00* Test Item Value Reference Range Interpretation Comments Anion Gap (test code = 50108-0) 16.4 8-16 H [facility] CenterBlood Urea Cplunrnt0932-65-36 00:35:00* Test Item Value Reference Range Interpretation Comments Blood Urea Nitrogen (test code = 3094-0) 24 7-26 [facility] CenterCreatinine2019-08-04 00:35:00* Test Item Value Reference Range Interpretation Comments Creatinine (test code = 2160-0) 1.44 0.57-1.11 H [facility] CenterBUN/Creatinine Wpgzs5352-56-86 00:35:00* Test Item Value Reference Range Interpretation Comments BUN/Creatinine Ratio (test code = 3097-3) 17 6-25 [facility] CenterEstimat Glomerular Filtration Rate 2019-02-24 00:35:00* Test Item Value Reference Range Interpretation Comments Estimat Glomerular Filtration Rate (test code = 821127819) 37 >60 L Ranges were taken from the National Kidney Disease Education Program and the [employer] healthal [employer] literature.Reference ranges:60 or greater: Kbmmuz47-49 ( for 3 consecutive months): Chronic kidney disease 15 or less: Kidney failureMem[facility] CenterGlucose Ezstx2267-73-72 00:35:00* Test Item Value Reference Range Interpretation Comments Glucose Level (test code = WAK2077) 665 74-118 Results repeated and called to SHILPA Jack at 0034 on 02/24/19 by Sagar Alegria. Malinda simpson back and verified.[facility] CenterCalcium Level 2019-02-24 00:35:00* Test Item Value Reference Range Interpretation Comments Calcium Level (test code = 00929-7) 9.5 8.4-10.2 [facility] CenterTotal Igymiimkc6174-30-08 00:35:00* Test Item Value Reference Range Interpretation Comments Total Bilirubin (test code = 1975-2) 0.3 0.2-1.2 [facility] CenterAspartate Amino Transf (AST/SGOT) 2019-02-24 00:35:00* Test Item Value Reference Range Interpretation Comments Aspartate Amino Transf (AST/SGOT) (test code = Aspartate Amino Transf (AST/SGOT)) [facility] CenterAlanine Aminotransferase (ALT/SGPT) 2019-02-24 00:35:00* Test Item Value Reference Range Interpretation Comments Alanine Aminotransferase (ALT/SGPT) (test code = 1742-6) 23 0-55 [facility] CenterTotal Stouvaq2415-92-31 00:35:00* Test Item Value Reference Range Interpretation Comments Total Protein (test code = 2885-2) 6.7 6.5-8.1 [facility] CenterAlbumin2019-08-04 00:35:00* Test Item Value Reference Range Interpretation Comments Albumin (test code = 1751-7) 3.5 3.5-5.0 [facility] CenterGlobulin2019-08-04 00:35:00* Test Item Value Reference Range Interpretation Comments Globulin (test code = 13314-2) 3.2 2.3-3.5 [facility] CenterAlbumin/Globulin Yesgv3066-81-69 00:35:00 * Test Item Value Reference Range Interpretation Comments Albumin/Globulin Ratio (test code = 1759-0) 1.1 0.8-2.0 [facility] CenterAlkaline Wquabgnflxk6039-71-39 00:35:00* Test Item Value Reference Range Interpretation Comments Alkaline Phosphatase (test code = 6768-6) 82 40-150 [facility] CenterTotal Gexctmvrd7666-14-77 00:35:00* Test Item Value Reference Range Interpretation Comments Total Bilirubin (test code = 1975-2) 0.3 0.2-1.2 [facility] CenterAspartate Amino Transf (AST/SGOT) 2019-02-24 00:35:00* Test Item Value Reference Range Interpretation Comments Aspartate Amino Transf (AST/SGOT) (test code = Aspartate Amino Transf (AST/SGOT)) [facility] CenterAlanine Aminotransferase (ALT/SGPT) 2019-02-24 00:35:00* Test Item Value Reference Range Interpretation Comments Alanine Aminotransferase (ALT/SGPT) (test code = 1742-6) 23 0-55 [facility] CenterTotal Oitmvah8734-68-95 00:35:00* Test Item Value Reference Range Interpretation Comments Total Protein (test code = 2885-2) 6.7 6.5-8.1 [facility] CenterAlbumin2019-08-04 00:35:00* Test Item Value Reference Range Interpretation Comments Albumin (test code = 1751-7) 3.5 3.5-5.0 [facility] CenterGlobulin2019-08-04 00:35:00* Test Item Value Reference Range Interpretation Comments Globulin (test code = 10990-6) 3.2 2.3-3.5 [facility] CenterAlbumin/Globulin Hhuak2555-10-30 00:35:00 * Test Item Value Reference Range Interpretation Comments Albumin/Globulin Ratio (test code = 1759-0) 1.1 0.8-2.0 [facility] CenterAlkaline Pyclnhytclt3869-40-44 00:35:00* Test Item Value Reference Range Interpretation Comments Alkaline Phosphatase (test code = 6768-6) 82 40-150 [facility] CenterTotal Qsbzucplx9836-77-00 00:35:00* Test Item Value Reference Range Interpretation Comments Total Bilirubin (test code = 1975-2) 0.3 0.2-1.2 [facility] CenterAspartate Amino Transf (AST/SGOT) 2019-02-24 00:35:00* Test Item Value Reference Range Interpretation Comments Aspartate Amino Transf (AST/SGOT) (test code = Aspartate Amino Transf (AST/SGOT)) 12 5-34 [facility] CenterAlanine Aminotransferase (ALT/SGPT) 2019-02-24 00:35:00* Test Item Value Reference Range Interpretation Comments Alanine Aminotransferase (ALT/SGPT) (test code = 1742-6) 23 0-55 [facility] CenterTocastle[facility] Vnueyet1080-45-85 00:35:00* Test Item Value Reference Range Interpretation Comments Total Protein (test code = 2885-2) 6.7 6.5-8.1 [facility] CenterAlbumin2019-08-04 00:35:00* Test Item Value Reference Range Interpretation Comments Albumin (test code = 1751-7) 3.5 3.5-5.0 [facility] CenterGlobulin2019-08-04 00:35:00* Test Item Value Reference Range Interpretation Comments Globulin (test code = 74394-4) 3.2 2.3-3.5 [facility] CenterAlbumin/Globulin Hbnun6259-53-47 00:35:00 * Test Item Value Reference Range Interpretation Comments Albumin/Globulin Ratio (test code = 1759-0) 1.1 0.8-2.0 [facility] CenterAlkaline Pdfznhqizwz2334-15-16 00:35:00* Test Item Value Reference Range Interpretation Comments Alkaline Phosphatase (test code = 6768-6) 82 40-150 [facility] CenterTotal Bqvewtwhm9984-98-71 00:35:00* Test Item Value Reference Range Interpretation Comments Total Bilirubin (test code = 1975-2) 0.3 0.2-1.2 [facility] CenterAspartate Amino Transf (AST/SGOT) 2019-02-24 00:35:00* Test Item Value Reference Range Interpretation Comments Aspartate Amino Transf (AST/SGOT) (test code = Aspartate Amino Transf (AST/SGOT)) 12 5-34 [facility] CenterAlanine Aminotransferase (ALT/SGPT) 2019-02-24 00:35:00* Test Item Value Reference Range Interpretation Comments Alanine Aminotransferase (ALT/SGPT) (test code = 1742-6) 23 0-55 [facility] CenterTotal Mkbcuzn2692-57-30 00:35:00* Test Item Value Reference Range Interpretation Comments Total Protein (test code = 2885-2) 6.7 6.5-8.1 [facility] CenterAlbumin2019-08-04 00:35:00* Test Item Value Reference Range Interpretation Comments Albumin (test code = 1751-7) 3.5 3.5-5.0 [facility] CenterGlobulin2019-08-04 00:35:00* Test Item Value Reference Range Interpretation Comments Globulin (test code = 10512-6) 3.2 2.3-3.5 [facility] CenterAlbumin/Globulin Nqzrl3961-23-49 00:35:00 * Test Item Value Reference Range Interpretation Comments Albumin/Globulin Ratio (test code = 1759-0) 1.1 0.8-2.0 [facility] CenterAlkaline Swwcuoltaty0215-00-03 00:35:00* Test Item Value Reference Range Interpretation Comments Alkaline Phosphatase (test code = 6768-6) 82 40-150 [facility] CenterTotal Lnxitmaqe7522-99-84 00:35:00* Test Item Value Reference Range Interpretation Comments Total Bilirubin (test code = 1975-2) 0.3 0.2-1.2 [facility] CenterAspartate Amino Transf (AST/SGOT) 2019-02-24 00:35:00* Test Item Value Reference Range Interpretation Comments Aspartate Amino Transf (AST/SGOT) (test code = Aspartate Amino Transf (AST/SGOT)) 12 5-34 [facility] CenterAlanine Aminotransferase (ALT/SGPT) 2019-02-24 00:35:00* Test Item Value Reference Range Interpretation Comments Alanine Aminotransferase (ALT/SGPT) (test code = 1742-6) 23 0-55 [facility] CenterTotal Evdjheg7796-22-10 00:35:00* Test Item Value Reference Range Interpretation Comments Total Protein (test code = 2885-2) 6.7 6.5-8.1 [facility] CenterAlbumin2019-08-04 00:35:00* Test Item Value Reference Range Interpretation Comments Albumin (test code = 1751-7) 3.5 3.5-5.0 [facility] CenterGlobulin2019-08-04 00:35:00* Test Item Value Reference Range Interpretation Comments Globulin (test code = 51754-7) 3.2 2.3-3.5 [facility] CenterAlbumin/Globulin Bmdob6843-34-23 00:35:00 * Test Item Value Reference Range Interpretation Comments Albumin/Globulin Ratio (test code = 1759-0) 1.1 0.8-2.0 [facility] CenterAlkaline Ipozlunbnyl3953-71-45 00:35:00* Test Item Value Reference Range Interpretation Comments Alkaline Phosphatase (test code = 6768-6) 82 40-150 [facility] CenterWhite Blood Odhja6112-65-02 00:18:00* Test Item Value Reference Range Interpretation Comments White Blood Count (test code = 6690-2) 5.09 4.8-10.8 [facility] CenterRed Blood Hjwle5364-35-19 00:18:00* Test Item Value Reference Range Interpretation Comments Red Blood Count (test code = 789-8) 4.64 3.6-5.1 [facility] CenterHemoglobin2019-08-04 00:18:00* Test Item Value Reference Range Interpretation Comments Hemoglobin (test code = 57609-3) 11.8 12.0-16.0 L [facility] CenterHematocrit2019-08-04 00:18:00* Test Item Value Reference Range Interpretation Comments Hematocrit (test code = 4544-3) 37.6 34.2-44.1 [facility] CenterMean Corpuscular Wnubio8365-94-36 00:18:00* Test Item Value Reference Range Interpretation Comments Mean Corpuscular Volume (test code = 787-2) 81.0 81-99 [facility] CenterMean Corpuscular Rntkyivasp0882-37-01 00:18:00* Test Item Value Reference Range Interpretation Comments Mean Corpuscular Hemoglobin (test code = 785-6) 25.4 28-32 L [facility] CenterMean Corpuscular Hemoglobin Concent 2019-02-24 00:18:00* Test Item Value Reference Range Interpretation Comments Mean Corpuscular Hemoglobin Concent (test code = 786-4) 31.4 31-35 [facility] CenterRed Cell Distribution Xtvtq9961-03-48 00:18:00* Test Item Value Reference Range Interpretation Comments Red Cell Distribution Width (test code = 83288-6) 15.5 11.7 -14.4 H [facility] CenterPlatelet Aqgbk2010-40-15 00:18:00* Test Item Value Reference Range Interpretation Comments Platelet Count (test code = 777-3) 155 140-360 [facility] CenterNeutrophils (%) (Auto)2019-02-24 00:18:00 * Test Item Value Reference Range Interpretation Comments Neutrophils (%) (Auto) (test code = 24272-1) 69.6 38.7-80.0 [facility] CenterLymphocytes (%) (Auto)2019-02-24 00:18:00 * Test Item Value Reference Range Interpretation Comments Lymphocytes (%) (Auto) (test code = 736-9) 20.0 18.0-39.1 [facility] CenterMonocytes (%) (Auto)2019-02-24 00:18:00* Test Item Value Reference Range Interpretation Comments Monocytes (%) (Auto) (test code = 5905-5) 5.1 4.4-11.3 [facility] CenterEosinophils (%) (Auto)2019-02-24 00:18:00 * Test Item Value Reference Range Interpretation Comments Eosinophils (%) (Auto) (test code = 713-8) 3.3 0.0-6.0 [facility] CenterBasophils (%) (Auto)2019-02-24 00:18:00* Test Item Value Reference Range Interpretation Comments Basophils (%) (Auto) (test code = 706-2) 1.0 0.0-1.0 [facility] CenterIM GRANULOCYTES %2019-02-24 00:18:00* Test Item Value Reference Range Interpretation Comments IM GRANULOCYTES % (test code = IM GRANULOCYTES %) 1.0 0.0- 1.0 [facility] CenterNeutrophils # (Auto)2019-02-24 00:18:00* Test Item Value Reference Range Interpretation Comments Neutrophils # (Auto) (test code = 751-8) 3.5 2.1-6.9 [facility] CenterLymphocytes # (Auto)2019-02-24 00:18:00* Test Item Value Reference Range Interpretation Comments Lymphocytes # (Auto) (test code = 90483-3) 1.0 1.0-3.2 [facility] CenterMonocytes # (Auto)2019-02-24 00:18:00* Test Item Value Reference Range Interpretation Comments Monocytes # (Auto) (test code = 742-7) 0.3 0.2-0.8 [facility] CenterEosinophils # (Auto)2019-02-24 00:18:00* Test Item Value Reference Range Interpretation Comments Eosinophils # (Auto) (test code = 711-2) 0.2 0.0-0.4 [facility] CenterBasophils # (Auto)2019-02-24 00:18:00* Test Item Value Reference Range Interpretation Comments Basophils # (Auto) (test code = 704-7) 0.1 0.0-0.1 [facility] CenterAbsolute Immature Granulocyte (auto 2019-02-24 00:18:00* Test Item Value Reference Range Interpretation Comments Absolute Immature Granulocyte (auto (joseph t code = Absolute Immature Granulocyte (auto) 0.05 0-0.1 [facility] CenterBedside Nankesg1608-31-33 12:27:00* Test Item Value Reference Range Interpretation Comments Bedside Glucose (test code = 51980-8) 302 70-120 H Meter ID: [id number] Health Tylerodium Level 2019-01-21 06:25:00* Test Item Value Reference Range Interpretation Comments Sodium Level (test code = 2951-2) 137 136-145 [facility] CenterPotassium Fseqw5237-69-89 06:25:00* Test Item Value Reference Range Interpretation Comments Potassium Level (test code = 2823-3) 4.8 3.5-5.1 [facility] CenterChloride Wcren9582-19-16 06:25:00* Test Item Value Reference Range Interpretation Comments Chloride Level (test code = 2075-0) 101 98-107 [facility] CenterCarbon Dioxide Cwsmb0913-89-36 06:25:00* Test Item Value Reference Range Interpretation Comments Carbon Dioxide Level (test code = 2028-9) 29 22-29 [facility] CenterAnion Ren1136-98-61 06:25:00* Test Item Value Reference Range Interpretation Comments Anion Gap (test code = 74405-3) 11.8 8-16 [facility] CenterBlood Urea Wgkqdrxx3568-93-31 06:25:00* Test Item Value Reference Range Interpretation Comments Blood Urea Nitrogen (test code = 3094-0) 17 7-26 [facility] CenterCreatinine2019-07-01 06:25:00* Test Item Value Reference Range Interpretation Comments Creatinine (test code = 2160-0) 0.98 0.57-1.11 [facility] CenterBUN/Creatinine Oxthc5670-79-72 06:25:00* Test Item Value Reference Range Interpretation Comments BUN/Creatinine Ratio (test code = 3097-3) 17 6-25 [facility] CenterEstimat Glomerular Filtration Rate 2019-01-21 06:25:00* Test Item Value Reference Range Interpretation Comments Estimat Glomerular Filtration Rate (test code = 722836116) 58 >60 L Ranges were taken from the National Kidney Disease Education Program and the Jenise [employer] healthal Kidney Foundation literature.Reference ranges:60 or greater: Hezpec16-10 ( for 3 consecutive months): Chronic kidney disease 15 or less: Kidney failureMem[facility] Hermann–[facility] Medical CenterGlucose Mexrn3984-27-57 06:25:00* Test Item Value Reference Range Interpretation Comments Glucose Level (test code = BAY2015) 252 74-118 H [facility] CenterCalcium Brrnv3679-70-80 06:25:00* Test Item Value Reference Range Interpretation Comments Calcium Level (test code = 77430-3) 9.2 8.4-10.2 [facility] CenterTotal Mrstauzoq5766-22-10 06:25:00* Test Item Value Reference Range Interpretation Comments Total Bilirubin (test code = 1975-2) 0.2 0.2-1.2 [facility] CenterAspartate Amino Transf (AST/SGOT) 2019-01-21 06:25:00* Test Item Value Reference Range Interpretation Comments Aspartate Amino Transf (AST/SGOT) (test code = Aspartate Amino Transf (AST/SGOT)) 13 5-34 [facility] CenterAlanine Aminotransferase (ALT/SGPT) 2019-01-21 06:25:00* Test Item Value Reference Range Interpretation Comments Alanine Aminotransferase (ALT/SGPT) (test code = 1742-6) 17 0-55 [facility] CenterTotal Xqybapw3034-84-23 06:25:00* Test Item Value Reference Range Interpretation Comments Total Protein (test code = 2885-2) 6.3 6.5-8.1 L [facility] CenterAlbumin2019-07-01 06:25:00* Test Item Value Reference Range Interpretation Comments Albumin (test code = 1751-7) 3.2 3.5-5.0 L [facility] CenterGlobulin2019-07-01 06:25:00* Test Item Value Reference Range Interpretation Comments Globulin (test code = 06328-5) 3.1 2.3-3.5 [facility] CenterAlbumin/Globulin Elpsi9077-55-80 06:25:00 * Test Item Value Reference Range Interpretation Comments Albumin/Globulin Ratio (test code = 1759-0) 1.0 0.8-2.0 [facility] CenterAlkaline Yganmlyycah1616-80-36 06:25:00* Test Item Value Reference Range Interpretation Comments Alkaline Phosphatase (test code = 6768-6) 78 40-150 [facility] CenterWhite Blood Berhr6611-84-87 06:21:00* Test Item Value Reference Range Interpretation Comments White Blood Count (test code = 6690-2) 4.81 4.8-10.8 [facility] CenterRed Blood Gmazv0788-09-65 06:21:00* Test Item Value Reference Range Interpretation Comments Red Blood Count (test code = 789-8) 4.90 3.6-5.1 [facility] CenterHemoglobin2019-07-01 06:21:00* Test Item Value Reference Range Interpretation Comments Hemoglobin (test code = 83089-8) 12.0 12.0-16.0 [facility] CenterHematocrit2019-07-01 06:21:00* Test Item Value Reference Range Interpretation Comments Hematocrit (test code = 4544-3) 39.4 34.2-44.1 [facility] CenterMean Corpuscular Ntgavy1436-46-01 06:21:00* Test Item Value Reference Range Interpretation Comments Mean Corpuscular Volume (test code = 787-2) 80.4 81-99 L [facility] CenterMean Corpuscular Amxwvxvpka6263-99-83 06:21:00* Test Item Value Reference Range Interpretation Comments Mean Corpuscular Hemoglobin (test code = 785-6) 24.5 28-32 L [facility] CenterMean Corpuscular Hemoglobin Concent 2019-01-21 06:21:00* Test Item Value Reference Range Interpretation Comments Mean Corpuscular Hemoglobin Concent (test code = 786-4) 30.5 31-35 L [facility] CenterRed Cell Distribution Qtjlv0498-37-27 06:21:00* Test Item Value Reference Range Interpretation Comments Red Cell Distribution Width (test code = 87207-4) 14.6 11.7 -14.4 H [facility] CenterPlatelet Fenum9638-02-08 06:21:00* Test Item Value Reference Range Interpretation Comments Platelet Count (test code = 777-3) 157 140-360 [facility] CenterNeutrophils (%) (Auto)2019-01-21 06:21:00 * Test Item Value Reference Range Interpretation Comments Neutrophils (%) (Auto) (test code = 53897-2) 62.2 38.7-80.0 [facility] CenterLymphocytes (%) (Auto)2019-01-21 06:21:00 * Test Item Value Reference Range Interpretation Comments Lymphocytes (%) (Auto) (test code = 736-9) 25.8 18.0-39.1 [facility] CenterMonocytes (%) (Auto)2019-01-21 06:21:00* Test Item Value Reference Range Interpretation Comments Monocytes (%) (Auto) (test code = 5905-5) 5.8 4.4-11.3 [facility] CenterEosinophils (%) (Auto)2019-01-21 06:21:00 * Test Item Value Reference Range Interpretation Comments Eosinophils (%) (Auto) (test code = 713-8) 5.0 0.0-6.0 [facility] CenterBasophils (%) (Auto)2019-01-21 06:21:00* Test Item Value Reference Range Interpretation Comments Basophils (%) (Auto) (test code = 706-2) 0.6 0.0-1.0 [facility] CenterIM GRANULOCYTES %2019-01-21 06:21:00* Test Item Value Reference Range Interpretation Comments IM GRANULOCYTES % (test code = IM GRANULOCYTES %) 0.6 0.0- 1.0 [facility] CenterNeutrophils # (Auto)2019-01-21 06:21:00* Test Item Value Reference Range Interpretation Comments Neutrophils # (Auto) (test code = 751-8) 3.0 2.1-6.9 [facility] CenterLymphocytes # (Auto)2019-01-21 06:21:00* Test Item Value Reference Range Interpretation Comments Lymphocytes # (Auto) (test code = 72562-3) 1.2 1.0-3.2 [facility] CenterMonocytes # (Auto)2019-01-21 06:21:00* Test Item Value Reference Range Interpretation Comments Monocytes # (Auto) (test code = 742-7) 0.3 0.2-0.8 [facility] CenterEosinophils # (Auto)2019-01-21 06:21:00* Test Item Value Reference Range Interpretation Comments Eosinophils # (Auto) (test code = 711-2) 0.2 0.0-0.4 [facility] CenterBasophils # (Auto)2019-01-21 06:21:00* Test Item Value Reference Range Interpretation Comments Basophils # (Auto) (test code = 704-7) 0.0 0.0-0.1 [facility] CenterAbsolute Immature Granulocyte (auto 2019-01-21 06:21:00* Test Item Value Reference Range Interpretation Comments Absolute Immature Granulocyte (auto (joseph t code = Absolute Immature Granulocyte (auto) 0.03 0-0.1 [facility] CenterCholesterol Yseql9309-36-25 15:27:00* Test Item Value Reference Range Interpretation Comments Cholesterol Level (test code = 3-3) 171 0-199 Less than 200 mg/dL Low Erkm703 - 239 mg/dL Borderline Szqj262 m g/dl and greater High Risk [facility] CenterLDL Qklczcdaeyz4379-40-59 15:27:00* Test Item Value Reference Range Interpretation Comments LDL Cholesterol (test code = 2088-1) 103 60-130 [facility] Uaasymuujct9771-79-83 15:27:00* Test Item Value Reference Range Interpretation Comments HDL Cholesterol (test code = 5-9) 30 40-60 L [facility] CenterCholesterol/HDL Xtlhl3844-32-16 15:27:00 * Test Item Value Reference Range Interpretation Comments Cholesterol/HDL Ratio (test code = 9830-1) 5.7 3.0-3.6 H [facility] CenterCholesterol Kcqqc7273-01-24 15:27:00* Test Item Value Reference Range Interpretation Comments Cholesterol Level (test code = 3-3) 171 0-199 Less than 200 mg/dL Low Lsme741 - 239 mg/dL Borderline Xbyh567 m g/dl and greater High Risk [facility] CenterLDL Anedxaillwp7672-34-14 15:27:00* Test Item Value Reference Range Interpretation Comments LDL Cholesterol (test code = 2088-) 103 60-130 [facility] Gvvmzkggzzu9028-86-23 15:27:00* Test Item Value Reference Range Interpretation Comments HDL Cholesterol (test code = 2085-9) 30 40-60 L [facility] CenterCholesterol/HDL Escog2884-02-57 15:27:00 * Test Item Value Reference Range Interpretation Comments Cholesterol/HDL Ratio (test code = 9830-1) 5.7 3.0-3.6 H [facility] CenterCholesterol Oogox2681-39-68 15:27:00* Test Item Value Reference Range Interpretation Comments Cholesterol Level (test code = 3-3) 171 0-199 Less than 200 mg/dL Low Epwx350 - 239 mg/dL Borderline Prkn607 m g/dl and greater High Risk [facility] CenterLDL Emxdywhadaf4147-28-88 15:27:00* Test Item Value Reference Range Interpretation Comments LDL Cholesterol (test code = 9-1) 103 60-130 [facility] Pngbeyyaiiv5998-37-76 15:27:00* Test Item Value Reference Range Interpretation Comments HDL Cholesterol (test code = 2085-9) 30 40-60 L [facility]HDL Hqkjs4543-59-39 15:27:00 * Test Item Value Reference Range Interpretation Comments Cholesterol/HDL Ratio (test code = 9830-1) 5.7 3.0-3.6 H [facility]Ch[facility] Kzcfk9236-85-96 15:27:00* Test Item Value Reference Range Interpretation Comments Cholesterol Level (test code = 3-3) 171 0-199 Less than 200 mg/dL Low Mnhn335 - 239 mg/dL Borderline Lbwv399 m g/dl and greater High Risk [facility] CenterLDL Sdmnoqpjnde1870-82-99 15:27:00* Test Item Value Reference Range Interpretation Comments LDL Cholesterol (test code = 9-1) 103 60-130 [facility] Dyxywjnrvhu6416-77-20 15:27:00* Test Item Value Reference Range Interpretation Comments HDL Cholesterol (test code = 2085-9) 30 40-60 L [facility]Ch[facility]/HDL Pyicy8406-81-91 15:27:00 * Test Item Value Reference Range Interpretation Comments Cholesterol/HDL Ratio (test code = 9830-1) 5.7 3.0-3.6 H [facility] Nhtpc9412-21-29 15:27:00* Test Item Value Reference Range Interpretation Comments Cholesterol Level (test code = 3-3) 171 0-199 Less than 200 mg/dL Low Bpoj342 - 239 mg/dL Borderline Jmgc542 m g/dl and greater High Risk [facility] CenterLDL Fsilupfowjr8476-30-10 15:27:00* Test Item Value Reference Range Interpretation Comments LDL Cholesterol (test code = 2089-1) 103 60-130 [facility] Gndpuqxxacu2388-62-96 15:27:00* Test Item Value Reference Range Interpretation Comments HDL Cholesterol (test code = 2085-9) 30 40-60 L [facility]HDL Ktmdf0072-89-68 15:27:00 * Test Item Value Reference Range Interpretation Comments Cholesterol/HDL Ratio (test code = 9830-1) 5.7 3.0-3.6 H [facility] Pfrta7100-88-59 15:27:00* Test Item Value Reference Range Interpretation Comments Cholesterol Level (test code = 2093-3) 171 0-199 Less than 200 mg/dL Low Urml237 - 239 mg/dL Borderline Wpaf189 m g/dl and greater High Risk [facility] CenterLDL Qahzbnlnxco8134-92-64 15:27:00* Test Item Value Reference Range Interpretation Comments LDL Cholesterol (test code = 2089-1) 103 60-130 [facility] Grvdqjphspa8024-72-35 15:27:00* Test Item Value Reference Range Interpretation Comments HDL Cholesterol (test code = 2085-9) 30 40-60 L [facility]HDL Zuwpc3694-29-97 15:27:00 * Test Item Value Reference Range Interpretation Comments Cholesterol/HDL Ratio (test code = 9830-1) 5.7 3.0-3.6 H [facility] CenterTriglycerides Laxvh6795-94-61 13:34:00* Test Item Value Reference Range Interpretation Comments Triglycerides Level (test code = 2571-8) 190 0-149 H [facility] CenterTriglycerides Vpvov3111-75-36 13:34:00* Test Item Value Reference Range Interpretation Comments Triglycerides Level (test code = 2571-8) 190 0-149 H [facility] CenterTriglycerides Bdwan3490-02-42 13:34:00* Test Item Value Reference Range Interpretation Comments Triglycerides Level (test code = 2571-8) 190 0-149 H [facility] CenterTriglycerides Wqexs1722-46-27 13:34:00* Test Item Value Reference Range Interpretation Comments Triglycerides Level (test code = 2571-8) 190 0-149 H [facility] CenterTriglycerides Kfdbz7778-77-95 13:34:00* Test Item Value Reference Range Interpretation Comments Triglycerides Level (test code = 2571-8) 190 0-149 H [facility] CenterTriglycerides Ozhnt1925-97-89 13:34:00* Test Item Value Reference Range Interpretation Comments Triglycerides Level (test code = 2571-8) 190 0-149 H [facility] Occult Wmksn0008-91-88 09:04:00* Test Item Value Reference Range Interpretation Comments Stool Occult Blood (test code = 2335-8) POSITIVE NEGATIVE [facility] Occult Lwjei5726-49-55 09:04:00* Test Item Value Reference Range Interpretation Comments Stool Occult Blood (test code = 2335-8) POSITIVE NEGATIVE [facility] Occult Axqpj9112-08-84 09:04:00* Test Item Value Reference Range Interpretation Comments Stool Occult Blood (test code = 2335-8) POSITIVE NEGATIVE [facility] Occult Kyvfx2960-46-61 09:04:00* Test Item Value Reference Range Interpretation Comments Stool Occult Blood (test code = 2335-8) POSITIVE NEGATIVE [facility] Occult Aevdv9935-55-59 09:04:00* Test Item Value Reference Range Interpretation Comments Stool Occult Blood (test code = 2335-8) POSITIVE NEGATIVE [facility] Occult Hktzp8296-24-52 09:04:00* Test Item Value Reference Range Interpretation Comments Stool Occult Blood (test code = 2335-8) POSITIVE [facility]GATIVE [facility] 2019-01-18 06:48:00* Test Item Value Reference Range Interpretation Comments Thyroid Stimulating Hormone (TSH) (test code = 74493-1) 0.428 0.350-4.940 [facility] CenterThyroid Stimulating Hormone (TSH) 2019-01-18 06:48:00* Test Item Value Reference Range Interpretation Comments Thyroid Stimulating Hormone (TSH) (test code = 81334-9) 0.428 0.350-4.940 [facility] CenterThyroid Stimulating Hormone (TSH) 2019-01-18 06:48:00* Test Item Value Reference Range Interpretation Comments Thyroid Stimulating Hormone (TSH) (test code = 65172-3) 0.428 0.350-4.940 [facility] CenterThyroid Stimulating Hormone (TSH) 2019-01-18 06:48:00* Test Item Value Reference Range Interpretation Comments Thyroid Stimulating Hormone (TSH) (test code = 25004-0) 0.428 0.350-4.940 [facility] CenterThyroid Stimulating Hormone (TSH) 2019-01-18 06:48:00* Test Item Value Reference Range Interpretation Comments Thyroid Stimulating Hormone (TSH) (test code = 31590-7) 0.428 0.350-4.940 [facility] CenterThyroid Stimulating Hormone (TSH) 2019-01-18 06:48:00* Test Item Value Reference Range Interpretation Comments Thyroid Stimulating Hormone (TSH) (test code = 36515-5) 0.428 0.350-4.940 [facility] Vpznshziw7519-71-84 15:32:00* Test Item Value Reference Range Interpretation Comments Free Thyroxine (test code = 3024-7) 1.05 0.8-1.8 [facility] Joxnoalvt3301-96-78 15:32:00* Test Item Value Reference Range Interpretation Comments Free Thyroxine (test code = 3024-7) 1.05 0.8-1.8 [facility] Dktfjcatg6251-66-27 15:32:00* Test Item Value Reference Range Interpretation Comments Free Thyroxine (test code = 3024-7) 1.05 0.8-1.8 [facility] Lytczudsp8334-07-62 15:32:00* Test Item Value Reference Range Interpretation Comments Free Thyroxine (test code = 3024-7) 1.05 0.8-1.8 [facility] Udwayxtzt2649-53-62 15:32:00* Test Item Value Reference Range Interpretation Comments Free Thyroxine (test code = 3024-7) 1.05 0.8-1.8 [facility] Jtcrjwion4059-19-92 15:32:00* Test Item Value Reference Range Interpretation Comments Free Thyroxine (test code = 3024-7) 1.05 0.8-1.8 [facility] CenterCreat[facility] Eenbmk5094-96-51 14:58:00* Test Item Value Reference Range Interpretation Comments Creatine Kinase (test code = 2157-6) 23 29-168 L [facility] CenterCreat[facility] Kinase RJ6546-48-24 14:58:00* Test Item Value Reference Range Interpretation Comments Creatine Kinase MB (test code = 63782-7) 0.60 0-5.0 [facility] CenterTrpr[facility] K8972-39-89 14:58:00* Test Item Value Reference Range Interpretation Comments Troponin I (test code = [id number]) < 0.001 0-0.300 [facility] CenterCreat[facility] Aamnou1351-52-85 14:58:00* Test Item Value Reference Range Interpretation Comments Creatine Kinase (test code = 2157-6) 23 29-168 L [facility] CenterCreat[facility] Kinase NE5094-44-68 14:58:00* Test Item Value Reference Range Interpretation Comments Creatine Kinase MB (test code = 39866-2) 0.60 0-5.0 [facility] CenterTrpr[facility] hospitaln G2342-22-96 14:58:00* Test Item Value Reference Range Interpretation Comments Troponin I (test code = KHI2132) < 0.001 0-0.300 [facility] CenterCreat[facility] Mxelsq5670-68-34 14:58:00* Test Item Value Reference Range Interpretation Comments Creatine Kinase (test code = 2157-6) 23 29-168 L [facility] CenterCreat[facility] Kinase QF5683-86-29 14:58:00* Test Item Value Reference Range Interpretation Comments Creatine Kinase MB (test code = 36177-0) 0.60 0-5.0 [place] [id number] 14:58:00* Test Item Value Reference Range Interpretation Comments Troponin I (test code = CJY2416) < 0.001 0-0.300 [facility] CenterCreat[facility] Nvcsbg5221-38-60 14:58:00* Test Item Value Reference Range Interpretation Comments Creatine Kinase (test code = 2157-6) 23 29-168 L [facility] CenterCreat[facility] Kinase ZJ5597-40-22 14:58:00* Test Item Value Reference Range Interpretation Comments Creatine Kinase MB (test code = 27547-3) 0.60 0-5.0 [place] [id number] 14:58:00* Test Item Value Reference Range Interpretation Comments Troponin I (test code = BEE7716) < 0.001 0-0.300 [facility]Creat[facility] Jhhyhb2884-81-65 14:58:00* Test Item Value Reference Range Interpretation Comments Creatine Kinase (test code = 2157-6) 23 29-168 L [facility] CenterCreat[facility] Kinase JF7736-38-49 14:58:00* Test Item Value Reference Range Interpretation Comments Creatine Kinase MB (test code = 24343-6) 0.60 0-5.0 [place] 82977019-06-27 14:58:00* Test Item Value Reference Range Interpretation Comments Troponin I (test code = KQW6443) < 0.001 0-0.300 [facility] CenterCreat[facility] Skzvhy7309-07-28 14:58:00* Test Item Value Reference Range Interpretation Comments Creatine Kinase (test code = 2157-6) 23 29-168 L [facility] CenterCreat[facility] Kinase FE8717-78-84 14:58:00* Test Item Value Reference Range Interpretation Comments Creatine Kinase MB (test code = 47549-5) 0.60 0-5.0 [place] 82977019-06-27 14:58:00* Test Item Value Reference Range Interpretation Comments Troponin I (test code = EAF2326) < 0.001 0-0.300 [facility] CenterHemoglobin A1c Ofqsgnd3396-18-38 14:27:00 * Test Item Value Reference Range Interpretation Comments Hemoglobin A1c Percent (test code = Hemoglobin A1c Percent) 11.6 4.0-7.0 H [facility] CenterHemoglobin A1c Mbulhtj4527-41-27 14:27:00 * Test Item Value Reference Range Interpretation Comments Hemoglobin A1c Percent (test code = Hemoglobin A1c Percent) 11.6 4.0-7.0 H [facility] CenterHemoglobin A1c Qnmidgx9269-99-90 14:27:00 * Test Item Value Reference Range Interpretation Comments Hemoglobin A1c Percent (test code = Hemoglobin A1c Percent) 11.6 4.0-7.0 H [facility] CenterHemoglobin A1c Mpfftfx9254-59-32 14:27:00 * Test Item Value Reference Range Interpretation Comments Hemoglobin A1c Percent (test code = Hemoglobin A1c Percent) 11.6 4.0-7.0 H [facility] CenterHemoglobin A1c Eheoyuf9464-09-22 14:27:00 * Test Item Value Reference Range Interpretation Comments Hemoglobin A1c Percent (test code = Hemoglobin A1c Percent) 11.6 4.0-7.0 H [facility] CenterHemoglobin A1c Ggoqlma7856-40-08 14:27:00 * Test Item Value Reference Range Interpretation Comments Hemoglobin A1c Percent (test code = Hemoglobin A1c Percent) 11.6 4.0-7.0 H [facility] CenterB-Type Natriuretic Luhflwj5982-94-59 06:11:00* Test Item Value Reference Range Interpretation Comments B-Type Natriuretic Peptide (test code = 65642-2) 14.3 0-100 [facility] CenterB-[facility] Natriuretic Dkzyqrg4619-36-49 06:11:00* Test Item Value Reference Range Interpretation Comments B-Type Natriuretic Peptide (test code = 26853-1) 14.3 0-100 [facility] CenterB[facility] Natriuretic Rwkmrac2051-67-29 06:11:00* Test Item Value Reference Range Interpretation Comments B-Type Natriuretic Peptide (test code = 76269-2) 14.3 0-100 [facility] CenterB[facility] Natriuretic Nhlekkn1220-63-43 06:11:00* Test Item Value Reference Range Interpretation Comments B-Type Natriuretic Peptide (test code = 47347-6) 14.3 0-100 [facility] CenterB-[facility] Natriuretic Rvlmylf1848-03-89 06:11:00* Test Item Value Reference Range Interpretation Comments B-Type Natriuretic Peptide (test code = 83731-8) 14.3 0-100 [facility] CenterB[facility] Natriuretic Uoepsio7848-38-39 06:11:00* Test Item Value Reference Range Interpretation Comments B-Type Natriuretic Peptide (test code = 74010-1) 14.3 0-100 [facility] CenterU[facility] PNN8601-20-27 21:13:00* Test Item Value Reference Range Interpretation Comments Urine WBC (test code = 5821-4) NONE 0-5 [facility] CenterU[facility] QCR1361-73-05 21:13:00* Test Item Value Reference Range Interpretation Comments Urine RBC (test code = 98326-0) NONE 0-5 [facility] CenterU[facility] Kzduybar5458-14-14 21:13:00* Test Item Value Reference Range Interpretation Comments Urine Bacteria (test code = 61436-8) FEW NONE [facility] CenterU[facility] Epithelial Zenej3549-32-40 21:13:00 * Test Item Value Reference Range Interpretation Comments Urine Epithelial Cells (test code = 38233-3) MANY NONE [facility] CenterU[facility] HAI7104-95-38 21:13:00* Test Item Value Reference Range Interpretation Comments Urine WBC (test code = 5821-4) NONE 0-5 [facility] CenterU[facility] DEJ3249-69-10 21:13:00* Test Item Value Reference Range Interpretation Comments Urine RBC (test code = 70440-2) NONE 0-5 [facility] Dzibwglp9780-11-09 21:13:00* Test Item Value Reference Range Interpretation Comments Urine Bacteria (test code = 38537-9) FEW NONE [facility] CenterU[facility] Epithelial Piqbn1365-33-54 21:13:00 * Test Item Value Reference Range Interpretation Comments Urine Epithelial Cells (test code = 03618-6) MANY NONE [facility] CenterU[facility] FRX1690-34-39 21:13:00* Test Item Value Reference Range Interpretation Comments Urine WBC (test code = 5821-4) NONE 0-5 [facility] HXG7227-06-42 21:13:00* Test Item Value Reference Range Interpretation Comments Urine RBC (test code = 47556-1) NONE 0-5 [facility] Mzjfknnv8092-91-65 21:13:00* Test Item Value Reference Range Interpretation Comments Urine Bacteria (test code = 01693-4) FEW NONE [facility] CenterU[facility] Epithelial Adebc8866-47-31 21:13:00 * Test Item Value Reference Range Interpretation Comments Urine Epithelial Cells (test code = 20809-9) MANY NONE [facility] SHU8286-57-32 21:13:00* Test Item Value Reference Range Interpretation Comments Urine WBC (test code = 5821-4) NONE 0-5 [facility] SGY4819-01-08 21:13:00* Test Item Value Reference Range Interpretation Comments Urine RBC (test code = 33139-1) NONE 0-5 [facility] Qleetjnn9551-29-67 21:13:00* Test Item Value Reference Range Interpretation Comments Urine Bacteria (test code = 21250-4) FEW NONE [facility] CenterU[facility] Epithelial Mszqe8634-12-02 21:13:00 * Test Item Value Reference Range Interpretation Comments Urine Epithelial Cells (test code = 08112-8) MANY NONE [facility] MBG2261-59-97 21:13:00* Test Item Value Reference Range Interpretation Comments Urine WBC (test code = 5821-4) NONE 0-5 [facility] EXE4686-26-14 21:13:00* Test Item Value Reference Range Interpretation Comments Urine RBC (test code = 03038-9) NONE 0-5 [facility] Bvbehhzq6081-76-35 21:13:00* Test Item Value Reference Range Interpretation Comments Urine Bacteria (test code = 69153-4) FEW NONE [facility] Epithelial Kklqt0362-88-61 21:13:00 * Test Item Value Reference Range Interpretation Comments Urine Epithelial Cells (test code = 32486-6) MANY NONE [facility] DAJ2211-03-00 21:13:00* Test Item Value Reference Range Interpretation Comments Urine WBC (test code = 5821-4) NONE 0-5 [facility] TDO3845-77-59 21:13:00* Test Item Value Reference Range Interpretation Comments Urine RBC (test code = 15779-5) NONE 0-5 [facility] Stmhsezp4044-19-53 21:13:00* Test Item Value Reference Range Interpretation Comments Urine Bacteria (test code = 46433-3) FEW NONE [facility] Epithelial Atpfb7038-80-29 21:13:00 * Test Item Value Reference Range Interpretation Comments Urine Epithelial Cells (test code = 34109-3) MANY NONE [facility] Datyb2336-16-53 21:08:00* Test Item Value Reference Range Interpretation Comments Urine Color (test code = 5778-6) YELLOW YELLOW [facility] Iqbunrk5229-62-05 21:08:00* Test Item Value Reference Range Interpretation Comments Urine Clarity (test code = 62204-3) CLEAR CLEAR [facility] CenterU[facility] Specific Qftgdcy4339-59-75 21:08:00 * Test Item Value Reference Range Interpretation Comments Urine Specific [place] (test code = 5811-5) <=1.005 1.010-1.02 5 [facility] aF7434-20-26 21:08:00* Test Item Value Reference Range Interpretation Comments Urine pH (test code = 82574-6) 6 5-7 [facility] Leukocyte Hakehbui6580-07-42 21:08:00* Test Item Value Reference Range Interpretation Comments Urine Leukocyte Esterase (test code = 64210-1) NEGATIVE NEGATIV E [facility] Fhgtoux2734-28-26 21:08:00* Test Item Value Reference Range Interpretation Comments Urine Nitrite (test code = 52153-0) NEGATIVE NEGATIVE [facility] Pjhoudl7848-56-68 21:08:00* Test Item Value Reference Range Interpretation Comments Urine Protein (test code = 39788-9) NEGATIVE NEGATIVE [facility] Glucose (UA)2019-01-16 21:08:00* Test Item Value Reference Range Interpretation Comments Urine Glucose (UA) (test code = 63453-0) 3+ NEGATIVE [facility] Sueyshn9589-38-68 21:08:00* Test Item Value Reference Range Interpretation Comments Urine Ketones (test code = 61972-3) NEGATIVE NEGATIVE [facility] Cgtebzctyqnt0518-82-50 21:08:00* Test Item Value Reference Range Interpretation Comments Urine Urobilinogen (test code = 84686-2) 0.2 0.2-1 [facility] Zitgbikem9053-59-41 21:08:00* Test Item Value Reference Range Interpretation Comments Urine Bilirubin (test code = 1977-8) NEGATIVE NEGATIVE [facility] Tqwmj5420-32-66 21:08:00* Test Item Value Reference Range Interpretation Comments Urine Blood (test code = 82760-1) NEGATIVE NEGATIVE [facility] Ynrhq3879-35-68 21:08:00* Test Item Value Reference Range Interpretation Comments Urine Color (test code = 5778-6) YELLOW YELLOW [facility] Pwzvwmi0658-25-76 21:08:00* Test Item Value Reference Range Interpretation Comments Urine Clarity (test code = 39595-5) CLEAR CLEAR [facility] Specific Vbesqxb7506-58-36 21:08:00 * Test Item Value Reference Range Interpretation Comments Urine Specific [place] (test code = 5811-5) <=1.005 1.010-1.02 5 [facility] wJ7714-46-13 21:08:00* Test Item Value Reference Range Interpretation Comments Urine pH (test code = 22556-4) 6 5-7 [facility] Leukocyte Indpwkyn1485-72-42 21:08:00* Test Item Value Reference Range Interpretation Comments Urine Leukocyte Esterase (test code = 78540-2) NEGATIVE NEGATIV E [facility] Mquymcv5085-22-80 21:08:00* Test Item Value Reference Range Interpretation Comments Urine Nitrite (test code = 87527-0) NEGATIVE NEGATIVE [facility] Mcagumn2821-24-92 21:08:00* Test Item Value Reference Range Interpretation Comments Urine Protein (test code = 24434-4) NEGATIVE NEGATIVE [facility] Glucose (UA)2019-01-16 21:08:00* Test Item Value Reference Range Interpretation Comments Urine Glucose (UA) (test code = 77765-0) 3+ NEGATIVE [facility] Gaswqod5179-57-25 21:08:00* Test Item Value Reference Range Interpretation Comments Urine Ketones (test code = 75223-1) NEGATIVE NEGATIVE [facility] Syjjhuputphs2640-65-58 21:08:00* Test Item Value Reference Range Interpretation Comments Urine Urobilinogen (test code = 62707-2) 0.2 0.2-1 [facility] Yamfoyahw0558-59-11 21:08:00* Test Item Value Reference Range Interpretation Comments Urine Bilirubin (test code = 1977-8) NEGATIVE NEGATIVE [facility] Ozbqj2771-37-01 21:08:00* Test Item Value Reference Range Interpretation Comments Urine Blood (test code = 75427-7) NEGATIVE NEGATIVE [facility] Nrdlq3864-42-21 21:08:00* Test Item Value Reference Range Interpretation Comments Urine Color (test code = 5778-6) YELLOW YELLOW [facility] Goxzpmz9091-30-15 21:08:00* Test Item Value Reference Range Interpretation Comments Urine Clarity (test code = 82427-9) CLEAR CLEAR [facility] Specific Xnclcoa8016-10-82 21:08:00 * Test Item Value Reference Range Interpretation Comments Urine Specific [place] (test code = 5811-5) <=1.005 1.010-1.02 5 [facility] jG4528-20-56 21:08:00* Test Item Value Reference Range Interpretation Comments Urine pH (test code = 45645-5) 6 5-7 [facility] Leukocyte Dsawuiow9849-85-91 21:08:00* Test Item Value Reference Range Interpretation Comments Urine Leukocyte Esterase (test code = 91888-0) NEGATIVE NEGATIV E [facility] Jaerrgw5623-91-49 21:08:00* Test Item Value Reference Range Interpretation Comments Urine Nitrite (test code = 02019-8) NEGATIVE NEGATIVE [facility] Aeppeje3223-26-70 21:08:00* Test Item Value Reference Range Interpretation Comments Urine Protein (test code = 44738-3) NEGATIVE NEGATIVE [facility] Glucose (UA)2019-01-16 21:08:00* Test Item Value Reference Range Interpretation Comments Urine Glucose (UA) (test code = 09038-2) 3+ NEGATIVE [facility] Uwkuypd7968-79-97 21:08:00* Test Item Value Reference Range Interpretation Comments Urine Ketones (test code = 84048-1) NEGATIVE NEGATIVE [facility] Qsqmikpppwpa6277-74-87 21:08:00* Test Item Value Reference Range Interpretation Comments Urine Urobilinogen (test code = 45648-6) 0.2 0.2-1 [facility] Jdicxlufw3566-55-29 21:08:00* Test Item Value Reference Range Interpretation Comments Urine Bilirubin (test code = 1977-8) NEGATIVE NEGATIVE [facility] Kxprp2518-96-44 21:08:00* Test Item Value Reference Range Interpretation Comments Urine Blood (test code = 86850-6) NEGATIVE NEGATIVE [facility] Rtagt5626-59-42 21:08:00* Test Item Value Reference Range Interpretation Comments Urine Color (test code = 5778-6) YELLOW YELLOW [facility] Odrjvkn5108-79-52 21:08:00* Test Item Value Reference Range Interpretation Comments Urine Clarity (test code = 19012-1) CLEAR CLEAR [facility] Specific Qvmwjph7716-97-27 21:08:00 * Test Item Value Reference Range Interpretation Comments Urine Specific [place] (test code = 5811-5) <=1.005 1.010-1.02 5 [facility] oQ5701-31-20 21:08:00* Test Item Value Reference Range Interpretation Comments Urine pH (test code = 02991-4) 6 5-7 [facility] Leukocyte Rwvflqmr2474-76-32 21:08:00* Test Item Value Reference Range Interpretation Comments Urine Leukocyte Esterase (test code = 55060-7) NEGATIVE NEGATIV E [facility] Ksoeota2639-37-57 21:08:00* Test Item Value Reference Range Interpretation Comments Urine Nitrite (test code = 14379-3) NEGATIVE NEGATIVE [facility] Djieoan7125-53-11 21:08:00* Test Item Value Reference Range Interpretation Comments Urine Protein (test code = 90383-7) NEGATIVE NEGATIVE [facility] Glucose (UA)2019-01-16 21:08:00* Test Item Value Reference Range Interpretation Comments Urine Glucose (UA) (test code = 51717-2) 3+ NEGATIVE [facility] Lqoweeh6746-81-21 21:08:00* Test Item Value Reference Range Interpretation Comments Urine Ketones (test code = 70771-3) NEGATIVE NEGATIVE [facility] Qbapsycqqalb3808-19-13 21:08:00* Test Item Value Reference Range Interpretation Comments Urine Urobilinogen (test code = 35114-4) 0.2 0.2-1 [facility] Acrjwokcl3498-38-70 21:08:00* Test Item Value Reference Range Interpretation Comments Urine Bilirubin (test code = 1977-8) NEGATIVE NEGATIVE [facility] Tncna3253-88-75 21:08:00* Test Item Value Reference Range Interpretation Comments Urine Blood (test code = 03950-9) NEGATIVE NEGATIVE [facility] Ueuxm8676-32-68 21:08:00* Test Item Value Reference Range Interpretation Comments Urine Color (test code = 5778-6) YELLOW YELLOW [facility] Baoehof5938-76-19 21:08:00* Test Item Value Reference Range Interpretation Comments Urine Clarity (test code = 30360-4) CLEAR CLEAR [facility] Specific Kkqinbv6998-57-87 21:08:00 * Test Item Value Reference Range Interpretation Comments Urine Specific [place] (test code = 5811-5) <=1.005 1.010-1.02 5 [facility] fB8315-59-72 21:08:00* Test Item Value Reference Range Interpretation Comments Urine pH (test code = 44721-7) 6 5-7 [facility] Leukocyte Quxzjakc6409-55-66 21:08:00* Test Item Value Reference Range Interpretation Comments Urine Leukocyte Esterase (test code = 93125-5) NEGATIVE NEGATIV E [facility] Rpwfjsi0350-73-77 21:08:00* Test Item Value Reference Range Interpretation Comments Urine Nitrite (test code = 12138-2) NEGATIVE NEGATIVE [facility] Bdpbits6391-01-05 21:08:00* Test Item Value Reference Range Interpretation Comments Urine Protein (test code = 36228-0) NEGATIVE NEGATIVE [facility] Glucose (UA)2019-01-16 21:08:00* Test Item Value Reference Range Interpretation Comments Urine Glucose (UA) (test code = 20990-6) 3+ NEGATIVE [facility] Xlfppij7095-40-78 21:08:00* Test Item Value Reference Range Interpretation Comments Urine Ketones (test code = 82912-1) NEGATIVE NEGATIVE [facility] Mlwugbrmhtjp2254-43-89 21:08:00* Test Item Value Reference Range Interpretation Comments Urine Urobilinogen (test code = 02752-6) 0.2 0.2-1 [facility] Lxszlgbdi9930-33-92 21:08:00* Test Item Value Reference Range Interpretation Comments Urine Bilirubin (test code = 1977-8) NEGATIVE NEGATIVE [facility] Cbobf3193-33-80 21:08:00* Test Item Value Reference Range Interpretation Comments Urine Blood (test code = 85158-2) NEGATIVE NEGATIVE [facility] Bzyzh4697-52-04 21:08:00* Test Item Value Reference Range Interpretation Comments Urine Color (test code = 5778-6) YELLOW YELLOW [facility] Nmvpfqy9708-81-14 21:08:00* Test Item Value Reference Range Interpretation Comments Urine Clarity (test code = 02453-1) CLEAR CLEAR [facility] Specific Yupzwhi5249-70-51 21:08:00 * Test Item Value Reference Range Interpretation Comments Urine Specific [place] (test code = 5811-5) <=1.005 1.010-1.02 5 [facility] cU0572-32-32 21:08:00* Test Item Value Reference Range Interpretation Comments Urine pH (test code = 51007-8) 6 5-7 [facility] Leukocyte Okwbbiqt1522-97-97 21:08:00* Test Item Value Reference Range Interpretation Comments Urine Leukocyte Esterase (test code = 38982-1) NEGATIVE NEGATIV E [facility] Ocxoxpo9947-01-66 21:08:00* Test Item Value Reference Range Interpretation Comments Urine Nitrite (test code = 63155-0) NEGATIVE NEGATIVE [facility] Hzqihlj7708-65-71 21:08:00* Test Item Value Reference Range Interpretation Comments Urine Protein (test code = 09162-2) NEGATIVE NEGATIVE [facility] Glucose (UA)2019-01-16 21:08:00* Test Item Value Reference Range Interpretation Comments Urine Glucose (UA) (test code = 48874-5) 3+ NEGATIVE [facility] Qigdqlp6840-94-52 21:08:00* Test Item Value Reference Range Interpretation Comments Urine Ketones (test code = 46097-0) NEGATIVE NEGATIVE [facility] Ruywudxkqdsz2072-40-58 21:08:00* Test Item Value Reference Range Interpretation Comments Urine Urobilinogen (test code = 27154-3) 0.2 0.2-1 [facility] Xmpcchjmg6813-11-89 21:08:00* Test Item Value Reference Range Interpretation Comments Urine Bilirubin (test code = 1977-8) NEGATIVE NEGATIVE [facility] Ebkhw2715-78-14 21:08:00* Test Item Value Reference Range Interpretation Comments Urine Blood (test code = 17906-3) NEGATIVE NEGATIVE [facility]2019-01-16 20:38:00 [facility] [address] [address] Patient Name: KALYANI TALAVERA MR #: [id number] : 1955 Age/Sex: 63/F Req #: [id number] Adm Physician: Ordered by: JACQUES JANE MD Report #: [id number] Location: ER Room/Bed: Procedure: 65 DX/CHEST SINGLE [...] 01/16/192040 COPY TO: JACQUES JANE MD Bedside Lonzzxr1505-11-48 11:08:00* Test Item Value Reference Range Interpretation Comments Bedside Glucose (test code = 14763-8) 289 70-120 H M[id number] [place]odium Level 2019-01-13 05:34:00* Test Item Value Reference Range Interpretation Comments Sodium Level (test code = 2951-2) 138 136-145 [facility] CenterPotassium Dzova0450-48-09 05:34:00* Test Item Value Reference Range Interpretation Comments Potassium Level (test code = 2823-3) 3.8 3.5-5.1 [facility] CenterChloride Siqal6601-65-70 05:34:00* Test Item Value Reference Range Interpretation Comments Chloride Level (test code = 2075-0) 105 98-107 [facility] CenterCarbon Dioxide Nkchj4208-85-75 05:34:00* Test Item Value Reference Range Interpretation Comments Carbon Dioxide Level (test code = 8-9) 25 22-29 [facility] CenterAnion Xyf1632-06-43 05:34:00* Test Item Value Reference Range Interpretation Comments Anion Gap (test code = 95530-2) 11.8 8-16 [facility] CenterBlood Urea Eninykhv1171-15-12 05:34:00* Test Item Value Reference Range Interpretation Comments Blood Urea Nitrogen (test code = 3094-0) 16 7-26 [facility] CenterCreatinine2019-06-23 05:34:00* Test Item Value Reference Range Interpretation Comments Creatinine (test code = 2160-0) 0.78 0.57-1.11 [facility] CenterBUN/Creatinine Yijrp4852-32-67 05:34:00* Test Item Value Reference Range Interpretation Comments BUN/Creatinine Ratio (test code = 3097-3) 21 6-25 [facility] CenterEstimat Glomerular Filtration Rate 2019-01-13 05:34:00* Test Item Value Reference Range Interpretation Comments Estimat Glomerular Filtration Rate (test code = 401023085) > 60 >60 Ranges were taken from the National Kidney Disease Education Program and the [facility] Kidney Foundation literature.Reference ranges:60 or greater: Piejbz57-64 ( for 3 consecutive months): Chronic kidney disease 15 or less: Kidney failureMem[facility] Hermann–[facility] Medical CenterGlucose Qqpbq6193-76-89 05:34:00* Test Item Value Reference Range Interpretation Comments Glucose Level (test code = OGP0572) 151 74-118 H [facility] CenterCalcium Ziksi0185-64-24 05:34:00* Test Item Value Reference Range Interpretation Comments Calcium Level (test code = 96107-7) 8.5 8.4-10.2 [facility] CenterTotal Tnvnelpxu5014-92-44 05:34:00* Test Item Value Reference Range Interpretation Comments Total Bilirubin (test code = 1975-2) 0.3 0.2-1.2 [facility] CenterAspartate Amino Transf (AST/SGOT) 2019-01-13 05:34:00* Test Item Value Reference Range Interpretation Comments Aspartate Amino Transf (AST/SGOT) (test code = Aspartate Amino Transf (AST/SGOT)) 12 5-34 [facility] CenterAlanine Aminotransferase (ALT/SGPT) 2019-01-13 05:34:00* Test Item Value Reference Range Interpretation Comments Alanine Aminotransferase (ALT/SGPT) (test code = 1742-6) 16 0-55 [facility] CenterTotal Tkhzvcc4425-05-90 05:34:00* Test Item Value Reference Range Interpretation Comments Total Protein (test code = 2885-2) 5.5 6.5-8.1 L [facility] CenterAlbumin2019-06-23 05:34:00* Test Item Value Reference Range Interpretation Comments Albumin (test code = 1751-7) 3.0 3.5-5.0 L [facility] CenterGlobulin2019-06-23 05:34:00* Test Item Value Reference Range Interpretation Comments Globulin (test code = 07247-4) 2.5 2.3-3.5 [facility] CenterAlbumin/Globulin Nwdpl2668-99-52 05:34:00 * Test Item Value Reference Range Interpretation Comments Albumin/Globulin Ratio (test code = 1759-0) 1.2 0.8-2.0 [facility] CenterAlkaline Shijgnyrtsh9497-28-10 05:34:00* Test Item Value Reference Range Interpretation Comments Alkaline Phosphatase (test code = 6768-6) 69 40-150 [facility] CenterWhite Blood Dlbxj5470-34-89 05:17:00* Test Item Value Reference Range Interpretation Comments White Blood Count (test code = 6690-2) 5.11 4.8-10.8 [facility] CenterRed Blood Gowwh0663-97-39 05:17:00* Test Item Value Reference Range Interpretation Comments Red Blood Count (test code = 789-8) 4.52 3.6-5.1 [facility] CenterHemoglobin2019-06-23 05:17:00* Test Item Value Reference Range Interpretation Comments Hemoglobin (test code = 63082-6) 11.2 12.0-16.0 L [facility] CenterHematocrit2019-06-23 05:17:00* Test Item Value Reference Range Interpretation Comments Hematocrit (test code = 4544-3) 36.5 34.2-44.1 [facility] CenterMean Corpuscular Ukfyjk4126-24-02 05:17:00* Test Item Value Reference Range Interpretation Comments Mean Corpuscular Volume (test code = 787-2) 80.8 81-99 L [facility] CenterMean Corpuscular Iysmcxigoe6585-13-55 05:17:00* Test Item Value Reference Range Interpretation Comments Mean Corpuscular Hemoglobin (test code = 785-6) 24.8 28-32 L [facility] CenterMean Corpuscular Hemoglobin Concent 2019-01-13 05:17:00* Test Item Value Reference Range Interpretation Comments Mean Corpuscular Hemoglobin Concent (test code = 786-4) 30.7 31-35 L [facility] CenterRed Cell Distribution Yqzzj9343-26-31 05:17:00* Test Item Value Reference Range Interpretation Comments Red Cell Distribution Width (test code = 34860-8) 14.9 11.7 -14.4 H [facility] CenterPlatelet Qiiww3122-71-78 05:17:00* Test Item Value Reference Range Interpretation Comments Platelet Count (test code = 777-3) 149 140-360 [facility] CenterNeutrophils (%) (Auto)2019-01-13 05:17:00 * Test Item Value Reference Range Interpretation Comments Neutrophils (%) (Auto) (test code = 74104-7) 67.6 38.7-80.0 [facility] CenterLymphocytes (%) (Auto)2019-01-13 05:17:00 * Test Item Value Reference Range Interpretation Comments Lymphocytes (%) (Auto) (test code = 736-9) 20.4 18.0-39.1 [facility] CenterMonocytes (%) (Auto)2019-01-13 05:17:00* Test Item Value Reference Range Interpretation Comments Monocytes (%) (Auto) (test code = 5905-5) 5.9 4.4-11.3 [facility] CenterEosinophils (%) (Auto)2019-01-13 05:17:00 * Test Item Value Reference Range Interpretation Comments Eosinophils (%) (Auto) (test code = 713-8) 4.1 0.0-6.0 [facility] CenterBasophils (%) (Auto)2019-01-13 05:17:00* Test Item Value Reference Range Interpretation Comments Basophils (%) (Auto) (test code = 706-2) 1.2 0.0-1.0 H [facility] CenterIM GRANULOCYTES %2019-01-13 05:17:00* Test Item Value Reference Range Interpretation Comments IM GRANULOCYTES % (test code = IM GRANULOCYTES %) 0.8 0.0- 1.0 [facility] CenterNeutrophils # (Auto)2019-01-13 05:17:00* Test Item Value Reference Range Interpretation Comments Neutrophils # (Auto) (test code = 751-8) 3.5 2.1-6.9 [facility] CenterLymphocytes # (Auto)2019-01-13 05:17:00* Test Item Value Reference Range Interpretation Comments Lymphocytes # (Auto) (test code = 64910-4) 1.0 1.0-3.2 [facility] CenterMonocytes # (Auto)2019-01-13 05:17:00* Test Item Value Reference Range Interpretation Comments Monocytes # (Auto) (test code = 742-7) 0.3 0.2-0.8 [facility] CenterEosinophils # (Auto)2019-01-13 05:17:00* Test Item Value Reference Range Interpretation Comments Eosinophils # (Auto) (test code = 711-2) 0.2 0.0-0.4 [facility] CenterBasophils # (Auto)2019-01-13 05:17:00* Test Item Value Reference Range Interpretation Comments Basophils # (Auto) (test code = 704-7) 0.1 0.0-0.1 [facility] CenterAbsolute Immature Granulocyte (auto 2019-01-13 05:17:00* Test Item Value Reference Range Interpretation Comments Absolute Immature Granulocyte (auto (joseph t code = Absolute Immature Granulocyte (auto) 0.04 0-0.1 [facility] CenterHemoglobin A1c Gxekdjw9631-62-43 13:04:00 * Test Item Value Reference Range Interpretation Comments Hemoglobin A1c Percent (test code = Hemoglobin A1c Percent) 11.6 4.0-7.0 H [facility] CenterUrine MDW3532-60-46 18:54:00* Test Item Value Reference Range Interpretation Comments Urine WBC (test code = 5821-4) NONE 0-5 [facility] CenterUrine MPT1360-69-16 18:54:00* Test Item Value Reference Range Interpretation Comments Urine RBC (test code = 80299-7) NONE 0-5 [facility] CenterUrine Qzcgvagh2043-71-81 18:54:00* Test Item Value Reference Range Interpretation Comments Urine Bacteria (test code = 99155-1) FEW NONE [facility] CenterUrine Epithelial Hkjfv7303-18-37 18:54:00 * Test Item Value Reference Range Interpretation Comments Urine Epithelial Cells (test code = 42439-3) FEW NONE [facility] CenterCreatine Kinase EU8233-28-88 18:44:00* Test Item Value Reference Range Interpretation Comments Creatine Kinase MB (test code = 20410-0) 1.00 0-5.0 [facility] CenterTroponin F2114-03-56 18:44:00* Test Item Value Reference Range Interpretation Comments Troponin I (test code = CXG1097) 0.002 0-0.300 [facility] CenterCHEST SINGLE (PORTABLE)2019-01-11 18:42:[address] [address] Patient Name: KALYANI TALAVERA MR #: [id number] : 1955 Age/Sex: 63/F Req #: [id number] Adm Physician: Ordered by: FLO TOLBERT MD Report #: [id number] Location: ER Room/Bed: Procedure: 2826-2622 DX/C HEST SINGLE (PORTABLE) Exam Date: Exam [...] 01/11/191842 COPY TO: FLO TOLBERT MD Creatine Mdaryc9949-14-81 18:39:00* Test Item Value Reference Range Interpretation Comments Creatine Kinase (test code = 2157-6) 29 29-168 [facility] CenterUrine Voptu6971-69-62 18:38:00* Test Item Value Reference Range Interpretation Comments Urine Color (test code = 5778-6) YELLOW YELLOW [facility] CenterUrine Akttddt6343-33-88 18:38:00* Test Item Value Reference Range Interpretation Comments Urine Clarity (test code = 84111-3) CLEAR CLEAR [facility] CenterUrine Specific Rwhlyav0708-96-11 18:38:00 * Test Item Value Reference Range Interpretation Comments Urine Specific [place] (test code = 5811-5) 1.010 1.010-1.02 5 [facility] CenterUrine xG8438-79-12 18:38:00* Test Item Value Reference Range Interpretation Comments Urine pH (test code = 19570-8) 6 5-7 [facility] CenterUrine Leukocyte Vkdbbhfp3302-09-07 18:38:00* Test Item Value Reference Range Interpretation Comments Urine Leukocyte Esterase (test code = 33476-4) NEGATIVE NEGATIV E [facility] CenterUrine Mhtgbkq1942-26-86 18:38:00* Test Item Value Reference Range Interpretation Comments Urine Nitrite (test code = 29944-6) NEGATIVE NEGATIVE [facility] CenterUrine Dqpyidt2546-78-67 18:38:00* Test Item Value Reference Range Interpretation Comments Urine Protein (test code = 11341-3) NEGATIVE NEGATIVE [facility] CenterUrine Glucose (UA)2019-01-11 18:38:00* Test Item Value Reference Range Interpretation Comments Urine Glucose (UA) (test code = 63874-8) 3+ NEGATIVE [facility] CenterUrine Digjbsg9857-19-56 18:38:00* Test Item Value Reference Range Interpretation Comments Urine Ketones (test code = 94190-7) NEGATIVE NEGATIVE [facility] CenterUrine Fejhxudvzsyw2236-11-06 18:38:00* Test Item Value Reference Range Interpretation Comments Urine Urobilinogen (test code = 98805-5) 0.2 0.2-1 [facility] CenterUrine Ukpmjznbt4402-50-56 18:38:00* Test Item Value Reference Range Interpretation Comments Urine Bilirubin (test code = 1977-8) NEGATIVE NEGATIVE [facility] CenterUrine Iokej9947-28-39 18:38:00* Test Item Value Reference Range Interpretation Comments Urine Blood (test code = 39834-6) NEGATIVE NEGATIVE [facility] CenterProthrombin Pwny7328-61-87 18:32:00* Test Item Value Reference Range Interpretation Comments Prothrombin Time (test code = 5902-2) 12.7 11.9-14.5 [facility] CenterProthromb Time International Ratio 2019-01-11 18:32:00* Test Item Value Reference Range Interpretation Comments Prothromb Time International Ratio (test code = 6301-6) 0.91 Oral Anticoagulant Therapy INR Values:1. Low Intensity Therapy 1.5 - 2.02 . Moderate Intensity Therapy 2.0 - 3.03. High Intensity Therapy(1) 2.5 - 3. 54. High Intensity Therapy(2) 3.0 - 4.05. Panic Value INR > 5.0 [facility] CenterActivated Partial Thromboplast Time 2019-01-11 18:32:00* Test Item Value Reference Range Interpretation Comments Activated Partial Thromboplast Time (test code = 26469-2) 24.1 23.8-35.5 [facility] CenterProthrombin Cztr0278-16-97 18:32:00* Test Item Value Reference Range Interpretation Comments Prothrombin Time (test code = 5902-2) 12.7 11.9-14.5 [facility] CenterProthromb Time International Ratio 2019-01-11 18:32:00* Test Item Value Reference Range Interpretation Comments Prothromb Time International Ratio (test code = 6301-6) 0.91 Oral Anticoagulant Therapy INR Values:1. Low Intensity Therapy 1.5 - 2.02 . Moderate Intensity Therapy 2.0 - 3.03. High Intensity Therapy(1) 2.5 - 3. 54. High Intensity Therapy(2) 3.0 - 4.05. Panic Value INR > 5.0 [facility] CenterActivated Partial Thromboplast Time 2019-01-11 18:32:00* Test Item Value Reference Range Interpretation Comments Activated Partial Thromboplast Time (test code = 87155-6) 24.1 23.8-35.5 [facility] CenterProthrombin Wxmw6706-67-12 18:32:00* Test Item Value Reference Range Interpretation Comments Prothrombin Time (test code = 5902-2) 12.7 11.9-14.5 [facility] CenterProthromb Time International Ratio 2019-01-11 18:32:00* Test Item Value Reference Range Interpretation Comments Prothromb Time International Ratio (test code = 6301-6) 0.91 Oral Anticoagulant Therapy INR Values:1. Low Intensity Therapy 1.5 - 2.02 . Moderate Intensity Therapy 2.0 - 3.03. High Intensity Therapy(1) 2.5 - 3. 54. High Intensity Therapy(2) 3.0 - 4.05. Panic Value INR > 5.0 [facility] CenterActivated Partial Thromboplast Time 2019-01-11 18:32:00* Test Item Value Reference Range Interpretation Comments Activated Partial Thromboplast Time (test code = 13915-3) 24.1 23.8-35.5 [facility] CenterProthrombin Kmxb6589-61-27 18:32:00* Test Item Value Reference Range Interpretation Comments Prothrombin Time (test code = 5902-2) 12.7 11.9-14.5 [facility] CenterProthromb Time International Ratio 2019-01-11 18:32:00* Test Item Value Reference Range Interpretation Comments Prothromb Time International Ratio (test code = 6301-6) 0.91 Oral Anticoagulant Therapy INR Values:1. Low Intensity Therapy 1.5 - 2.02 . Moderate Intensity Therapy 2.0 - 3.03. High Intensity Therapy(1) 2.5 - 3. 54. High Intensity Therapy(2) 3.0 - 4.05. Panic Value INR > 5.0 [facility] CenterActivated Partial Thromboplast Time 2019-01-11 18:32:00* Test Item Value Reference Range Interpretation Comments Activated Partial Thromboplast Time (test code = 27009-9) 24.1 23.8-35.5 [facility] CenterProthrombin Lave2351-05-91 18:32:00* Test Item Value Reference Range Interpretation Comments Prothrombin Time (test code = 5902-2) 12.7 11.9-14.5 [facility] CenterProthromb Time International Ratio 2019-01-11 18:32:00* Test Item Value Reference Range Interpretation Comments Prothromb Time International Ratio (test code = 6301-6) 0.91 Oral Anticoagulant Therapy INR Values:1. Low Intensity Therapy 1.5 - 2.02 . Moderate Intensity Therapy 2.0 - 3.03. High Intensity Therapy(1) 2.5 - 3. 54. High Intensity Therapy(2) 3.0 - 4.05. Panic Value INR > 5.0 [facility] CenterActivated Partial Thromboplast Time 2019-01-11 18:32:00* Test Item Value Reference Range Interpretation Comments Activated Partial Thromboplast Time (test code = 57921-8) 24.1 23.8-35.5 [facility] CenterProthrombin Qgki3310-28-98 18:32:00* Test Item Value Reference Range Interpretation Comments Prothrombin Time (test code = 5902-2) 12.7 11.9-14.5 [facility] CenterProthromb Time International Ratio 2019-01-11 18:32:00* Test Item Value Reference Range Interpretation Comments Prothromb Time International Ratio (test code = 6301-6) 0.91 Oral Anticoagulant Therapy INR Values:1. Low Intensity Therapy 1.5 - 2.02 . Moderate Intensity Therapy 2.0 - 3.03. High Intensity Therapy(1) 2.5 - 3. 54. High Intensity Therapy(2) 3.0 - 4.05. Panic Value INR > 5.0 [facility] CenterActivated Partial Thromboplast Time 2019-01-11 18:32:00* Test Item Value Reference Range Interpretation Comments Activated Partial Thromboplast Time (test code = 58377-7) 24.1 23.8-35.5 [facility] CenterProthrombin Ahfs7498-98-17 18:32:00* Test Item Value Reference Range Interpretation Comments Prothrombin Time (test code = 5902-2) 12.7 11.9-14.5 [facility] CenterProthromb Time International Ratio 2019-01-11 18:32:00* Test Item Value Reference Range Interpretation Comments Prothromb Time International Ratio (test code = 6301-6) 0.91 Oral Anticoagulant Therapy INR Values:1. Low Intensity Therapy 1.5 - 2.02 . Moderate Intensity Therapy 2.0 - 3.03. High Intensity Therapy(1) 2.5 - 3. 54. High Intensity Therapy(2) 3.0 - 4.05. Panic Value INR > 5.0 [facility] CenterActivated Partial Thromboplast Time 2019-01-11 18:32:00* Test Item Value Reference Range Interpretation Comments Activated Partial Thromboplast Time (test code = 85470-1) 24.1 23.8-35.5 [facility] Center[facility]ST 2 EUZFM4737-25-81 17:48:00 [facility] [address] [place] [address] Patient Name: KALYANI TALAVERA MR #: [id number] : 1955 Age/Sex: 63/F Req #: [id number] Adm Physician: Ordered by: BOYD NICHOLS NP Report #: [id number] Location: ER Room/Bed: Procedure: 8025-3010 D X/CHEST 2 VIEWS Exam Date: 01/10/19 Exam Time: 1723 REPORT STATUS: Signed EXAMINATIO N: CHEST 2 VIEWS INDICATION: Hyperglycemia crackles bases 32958 620 1724 COMPARISON: Chest x-ray 07/01/2018 FINDINGS: [...] on 01/10/191749 COPY T O: BOYD NICHOLS MIS SPECIALIST B-Type Natriuretic Qknnobi1486-34-81 17:30:00* Test Item Value Reference Range Interpretation Comments B-Type Natriuretic Peptide (test code = 13882-5) 24.4 0-100 [facility] CenterB-[facility] Natriuretic Rpgltus4171-82-83 17:30:00* Test Item Value Reference Range Interpretation Comments B-Type Natriuretic Peptide (test code = 13449-0) 24.4 0-100 [facility] CenterUrine EMT8157-40-10 17:03:00* Test Item Value Reference Range Interpretation Comments Urine WBC (test code = 5821-4) 0-5 0-5 [facility] Center[facility] SZB2735-17-05 17:03:00* Test Item Value Reference Range Interpretation Comments Urine RBC (test code = 57315-9) NONE 0-5 [facility] CenterU[facility] Lohzzbuu3946-16-73 17:03:00* Test Item Value Reference Range Interpretation Comments Urine Bacteria (test code = 81265-1) MODERATE NONE H [facility] CenterU[facility] Epithelial Koner6737-25-89 17:03:00 * Test Item Value Reference Range Interpretation Comments Urine Epithelial Cells (test code = 73398-2) MANY NONE [facility] CenterU[facility] Mylfs2596-97-19 17:00:00* Test Item Value Reference Range Interpretation Comments Urine Color (test code = 5778-6) YELLOW YELLOW [facility] Cxcgsbp9051-90-17 17:00:00* Test Item Value Reference Range Interpretation Comments Urine Clarity (test code = 37531-2) CLEAR CLEAR [facility] CenterU[facility] Specific Hmnbzcy6626-11-81 17:00:00 * Test Item Value Reference Range Interpretation Comments Urine Specific [place] (test code = 5811-5) 1.020 1.010-1.02 5 [facility] CenterU[facility] lW4276-35-56 17:00:00* Test Item Value Reference Range Interpretation Comments Urine pH (test code = 28434-7) 6 5-7 [facility] Leukocyte Gslraaes1164-20-39 17:00:00* Test Item Value Reference Range Interpretation Comments Urine Leukocyte Esterase (test code = 72287-1) NEGATIVE NEGATIV E [facility] CenterU[facility] Nnitjat0804-53-40 17:00:00* Test Item Value Reference Range Interpretation Comments Urine Nitrite (test code = 03237-2) NEGATIVE NEGATIVE [facility] CenterU[facility] Cotekqz6036-25-57 17:00:00* Test Item Value Reference Range Interpretation Comments Urine Protein (test code = 26585-8) NEGATIVE NEGATIVE [facility] CenterU[facility] Glucose (UA)2019-01-10 17:00:00* Test Item Value Reference Range Interpretation Comments Urine Glucose (UA) (test code = 48897-2) 3+ NEGATIVE [facility] Zigslxf2460-91-68 17:00:00* Test Item Value Reference Range Interpretation Comments Urine Ketones (test code = 45485-8) NEGATIVE NEGATIVE [facility] CenterU[facility] Fopdumbrlpzy0543-88-61 17:00:00* Test Item Value Reference Range Interpretation Comments Urine Urobilinogen (test code = 93555-5) 0.2 0.2-1 [facility] CenterU[facility] Aasfvpjbz3836-61-92 17:00:00* Test Item Value Reference Range Interpretation Comments Urine Bilirubin (test code = 1977-8) NEGATIVE NEGATIVE [facility] Pjqzz1530-80-70 17:00:00* Test Item Value Reference Range Interpretation Comments Urine Blood (test code = 12907-9) NEGATIVE NEGATIVE [facility] CenterCreatine Kinase FF6046-88-37 16:38:00* Test Item Value Reference Range Interpretation Comments Creatine Kinase MB (test code = 22353-5) 1.60 0-5.0 [facility] CenterTroponin T5541-79-81 16:38:00* Test Item Value Reference Range Interpretation Comments Troponin I (test code = PPS1051) 0.007 0-0.300 [facility] Pduyy6882-22-76 16:33:00* Test Item Value Reference Range Interpretation Comments Sodium Level (test code = 2951-2) 135 136-145 L [facility] CenterPotassium Bqafr4048-56-15 16:33:00* Test Item Value Reference Range Interpretation Comments Potassium Level (test code = 2823-3) 4.9 3.5-5.1 [facility] CenterChloride Fjjwu8118-64-13 16:33:00* Test Item Value Reference Range Interpretation Comments Chloride Level (test code = 2075-0) 102 98-107 [facility] CenterCarbon Dioxide Jkibh3546-25-28 16:33:00* Test Item Value Reference Range Interpretation Comments Carbon Dioxide Level (test code = 2028-9) 21 22-29 L [facility] CenterAnion Kli0280-02-83 16:33:00* Test Item Value Reference Range Interpretation Comments Anion Gap (test code = 22350-3) 16.9 8-16 H [facility] CenterBlood Urea Jyhdqwyy9158-10-34 16:33:00* Test Item Value Reference Range Interpretation Comments Blood Urea Nitrogen (test code = 3094-0) 31 7-26 H [facility] CenterCreatinine2019-06-20 16:33:00* Test Item Value Reference Range Interpretation Comments Creatinine (test code = 2160-0) 1.16 0.57-1.11 H [facility] CenterBUN/Creatinine Evurz6876-39-57 16:33:00* Test Item Value Reference Range Interpretation Comments BUN/Creatinine Ratio (test code = 3097-3) 27 6-25 H [facility] CenterEstimat Glomerular Filtration Rate 2019-01-10 16:33:00* Test Item Value Reference Range Interpretation Comments Estimat Glomerular Filtration Rate (test code = 525747020) 47 >60 L Ranges were taken from the National Kidney Disease Education Program and the Jenise unc healthal [employer] literature.Reference ranges:60 or greater: Wiwurj99-34 ( for 3 consecutive months): Chronic kidney disease 15 or less: Kidney failureMemorial Hermann–Texas Medical CenterGlucose Kgjgh5912-23-67 16:33:00* Test Item Value Reference Range Interpretation Comments Glucose Level (test code = PES0942) 326 74-118 H [facility] CenterCalcium Qbanv3635-78-70 16:33:00* Test Item Value Reference Range Interpretation Comments Calcium Level (test code = 46807-5) 9.7 8.4-10.2 [facility] CenterTotal Fadvnlneo7479-77-72 16:33:00* Test Item Value Reference Range Interpretation Comments Total Bilirubin (test code = 1975-2) 0.3 0.2-1.2 [facility] CenterAspartate Amino Transf (AST/SGOT) 2019-01-10 16:33:00* Test Item Value Reference Range Interpretation Comments Aspartate Amino Transf (AST/SGOT) (test code = Aspartate Amino Transf (AST/SGOT)) 19 5-34 [facility] CenterAlanine Aminotransferase (ALT/SGPT) 2019-01-10 16:33:00* Test Item Value Reference Range Interpretation Comments Alanine Aminotransferase (ALT/SGPT) (test code = 1742-6) 22 0-55 [facility] CenterTotal Hniwkuz2165-27-43 16:33:00* Test Item Value Reference Range Interpretation Comments Total Protein (test code = 2885-2) 7.1 6.5-8.1 [facility] CenterAlbumin2019-06-20 16:33:00* Test Item Value Reference Range Interpretation Comments Albumin (test code = 1751-7) 3.5 3.5-5.0 [facility] CenterGlobulin2019-06-20 16:33:00* Test Item Value Reference Range Interpretation Comments Globulin (test code = 38657-3) 3.6 2.3-3.5 H [facility] CenterAlbumin/Globulin Kqdxy4485-70-24 16:33:00 * Test Item Value Reference Range Interpretation Comments Albumin/Globulin Ratio (test code = 1759-0) 1.0 0.8-2.0 [facility] CenterAlkaline Ahavxohdjfr5896-30-22 16:33:00* Test Item Value Reference Range Interpretation Comments Alkaline Phosphatase (test code = 6768-6) 81 40-150 [facility] CenterCreatine Pffksy6553-94-03 16:33:00* Test Item Value Reference Range Interpretation Comments Creatine Kinase (test code = 2157-6) 35 29-168 [facility] CenterWhite Blood Xdtnz3908-39-31 16:22:00* Test Item Value Reference Range Interpretation Comments White Blood Count (test code = 6690-2) 5.88 4.8-10.8 [facility] CenterRed Blood Cqfiw1177-44-55 16:22:00* Test Item Value Reference Range Interpretation Comments Red Blood Count (test code = 789-8) 5.19 3.6-5.1 H [facility] CenterHemoglobin2019-06-20 16:22:00* Test Item Value Reference Range Interpretation Comments Hemoglobin (test code = 40356-3) 13.0 12.0-16.0 [facility] CenterHematocrit2019-06-20 16:22:00* Test Item Value Reference Range Interpretation Comments Hematocrit (test code = 4544-3) 42.1 34.2-44.1 [facility] CenterMean Corpuscular Tujppe2383-73-65 16:22:00* Test Item Value Reference Range Interpretation Comments Mean Corpuscular Volume (test code = 787-2) 81.1 81-99 [facility] CenterMean Corpuscular Rpiydcacol1752-03-62 16:22:00* Test Item Value Reference Range Interpretation Comments Mean Corpuscular Hemoglobin (test code = 785-6) 25.0 28-32 L [facility] CenterMean Corpuscular Hemoglobin Concent 2019-01-10 16:22:00* Test Item Value Reference Range Interpretation Comments Mean Corpuscular Hemoglobin Concent (test code = 786-4) 30.9 31-35 L [facility] CenterRed Cell Distribution Fqamw6997-61-26 16:22:00* Test Item Value Reference Range Interpretation Comments Red Cell Distribution Width (test code = 17591-6) 15.0 11.7 -14.4 H [facility] CenterPlatelet Rxmen3844-67-52 16:22:00* Test Item Value Reference Range Interpretation Comments Platelet Count (test code = 777-3) 151 140-360 [facility] CenterNeutrophils (%) (Auto)2019-01-10 16:22:00 * Test Item Value Reference Range Interpretation Comments Neutrophils (%) (Auto) (test code = 42282-7) 66.5 38.7-80.0 [facility] CenterLymphocytes (%) (Auto)2019-01-10 16:22:00 * Test Item Value Reference Range Interpretation Comments Lymphocytes (%) (Auto) (test code = 736-9) 24.0 18.0-39.1 [facility] CenterMonocytes (%) (Auto)2019-01-10 16:22:00* Test Item Value Reference Range Interpretation Comments Monocytes (%) (Auto) (test code = 5905-5) 5.1 4.4-11.3 [facility] CenterEosinophils (%) (Auto)2019-01-10 16:22:00 * Test Item Value Reference Range Interpretation Comments Eosinophils (%) (Auto) (test code = 713-8) 2.7 0.0-6.0 [facility] CenterBasophils (%) (Auto)2019-01-10 16:22:00* Test Item Value Reference Range Interpretation Comments Basophils (%) (Auto) (test code = 706-2) 1.0 0.0-1.0 [facility] CenterIM GRANULOCYTES %2019-01-10 16:22:00* Test Item Value Reference Range Interpretation Comments IM GRANULOCYTES % (test code = IM GRANULOCYTES %) 0.7 0.0- 1.0 [facility] CenterNeutrophils # (Auto)2019-01-10 16:22:00* Test Item Value Reference Range Interpretation Comments Neutrophils # (Auto) (test code = 751-8) 3.9 2.1-6.9 [facility] CenterLymphocytes # (Auto)2019-01-10 16:22:00* Test Item Value Reference Range Interpretation Comments Lymphocytes # (Auto) (test code = 18398-8) 1.4 1.0-3.2 [facility] CenterMonocytes # (Auto)2019-01-10 16:22:00* Test Item Value Reference Range Interpretation Comments Monocytes # (Auto) (test code = 742-7) 0.3 0.2-0.8 [facility] CenterEosinophils # (Auto)2019-01-10 16:22:00* Test Item Value Reference Range Interpretation Comments Eosinophils # (Auto) (test code = 711-2) 0.2 0.0-0.4 [facility] CenterBasophils # (Auto)2019-01-10 16:22:00* Test Item Value Reference Range Interpretation Comments Basophils # (Auto) (test code = 704-7) 0.1 0.0-0.1 [facility] CenterAbsolute Immature Granulocyte (auto 2019-01-10 16:22:00* Test Item Value Reference Range Interpretation Comments Absolute Immature Granulocyte (auto (joseph t code = Absolute Immature Granulocyte (auto) 0.04 0-0.1 [facility] CenterGLUBED2019-06-15 03:55:00* Test Item Value Reference Range Interpretation Comments GLUBED (test code = GLUBED) 370 mg/dL 74-106 H Performed by certified vacuum drum drier operator at [facility] TYBHZU0159-40-95 03:55:00* Test Item Value Reference Range Interpretation Comments GLUBED (test code = GLUBED) 358 mg/dL 74-106 H Performed by certified vacuum drum drier operator at [facility] BASIC METABOLIC CGDQO7058-84-86 03:09:00* Test Item Value Reference Range Interpretation [...] CA) 8.1 mg/dL 8.5-10.1 L HEPATIC FUNCTION XJFKQ2262-39-67 03:09:00* Test Item Value Reference Range Interpretation [...] reference range due to change in reagent. SCPLIAZY-M0217-54-15 03:09:00* Test Item Value Reference Range Interpretation Comments TROPONIN-I (test code = TROPI) <0.015 ng/mL 0-0.045 N BASIC METABOLIC WAWDE0243-09-41 03:01:00* Test Item Value Reference Range Interpretation [...] code = CA) mg/dL 8.5-10.1 HEPATIC FUNCTION PLECG3440-79-89 03:01:00* Test Item Value Reference Range Interpretation [...] TOTAL (test code = ALKP) IUnit/L 45-117 GPHAUVQQ-U8414-60-15 03:01:00* Test Item Value Reference Range Interpretation Comments TROPONIN-I (test code = TROPI) ng/mL 0-0.045 CBC W/AUTO MADC3163-92-81 02:56:00* Test Item Value Reference Range Interpretation [...] (test code = MDIFF) NO CBC W/AUTO JOHV4772-23-30 02:51:00* Test Item Value Reference Range Interpretation [...] (test code = BA#) K/mm3 0.0-0.2 URINALYSIS ENQHYBUG8324-93-61 01:33:00* Test Item Value Reference Range Interpretation [...] Urine Source? Clean Catch- XR CHEST 1 N4016-29-94 01:00:00 FAX: Amish Nur Si [phone] [place]: B St: REG FAX: Vince Jones DO Name: KALYANI TALAVERA [facility] : 1955 Age/S: 63/F [address] Unit #: [id number] Loc: [place] [address] Phys: Vince Jones DO Acct: [id number] Dis Date: Status: REG ER PHONE #: [phone] Exam Date: 01/05/2019 0045 FAX #: [phone] Reason: Altered Mental Status EXAMS: CPT CODE: [id number] XR CHEST 1 V 42660 LOCATION: Q15 HISTORY: 63-year-old female who presents with alteration of awareness. COMMENT: A frontal chest radiograph was obtained at 12:44 a.m., and compared to study of Ap [facility] 2018. Central vascular congestion pattern with surrounding [...] By: [email or web address] Orig Print D/T: S: 12/22 (0101) PAGE 1 Signed Jose Santizo XR CHEST 1 N5795-60-50 01:00:00 FAX: Amish Nur Si [phone] [place]: B St: DEP FAX: Vince Jones DO Name: KALYANI TALAVERA [facility] : 1955 Age/S: 63/F [address] Unit #: [id number] Loc: [place] [address] Phys: Vince Jones DO Acct: [id number] Dis Date: Status: DEP ER PHONE #: [phone] Exam Date: 01/05/2019 0045 FAX #: [phone] Reason: Altered Mental Status EXAMS: CPT CODE: [id number] XR CHEST 1 V 24237 LOCATION: Q15 HISTORY: 63-year-old female who presents with alteration of awareness. COMMENT: A frontal chest radiograph was obtained at 12:44 a.m., and compared to study of ril 2018. Central vascular congestion pattern with [...] Signed Jose parks - XR CHEST 1 Z8046-73-74 01:00:00 FAX: Amish Nur Si [phone] [place]: B St: DEP FAX: Vince Jones DO Name: KALYANI TALAVERA [facility] : 1955 Age/S: 63/F [address] Unit #: [id number] Loc: [place] [address] Phys: Vince Jones DO Acct: [id number] Dis Date: Status: DEP ER PHONE #: [phone] Exam Date: 01/05/2019 0045 FAX #: [phone] Reason: Altered Mental Status EXAMS: CPT CODE: [id number] XR CHEST 1 V 35569 LOCATION: Q15 HISTORY: 63-year-old female who presents [...] Technologist: RT ROBERT(Megan) Trnjose Simpson ate/Time/By: 01/05/2019 (0100) : By: [email or web address] Orig Print D/T: S: 12/22 (0105) PAGE [address] Signed Repor t - CT HEAD/BRAIN W/O MRAE0769-53-16 00:55:00 Name: KALYANI TALAVERA [facility] : 1955 Age/S: 63 / F [address] Unit #: [id number] Loc: [place] [address] Phys: Vince Jones DO Acct: [id number] Dis Date: Status: REG ER PHONE #: [phone] Exam Date: 01/05/2019 0050 FAX #: Reason: Altered Mental Status EXAMS: CPT CODE: [id number] CT HEAD/BRAIN W/O CONT 61492 EXAM: - CT HEAD/BRAIN W/O CONT Location [...] 1 Signed Report (CONTINUED) Name: KALYANI TALAVERA [facility] : 1955 Age/S: 63 / F [address] [facility] Unit #: [id number] Loc: [place] [address] Phys: Vince Jones DO Acct: [id number] Dis Date: Status: REG ER PHONE #: [phone] Exam Date: 01/05/2019 0050 FAX #: [phone] Reason: Altered Mental Status EXAMS: CPT CODE: [id number] CT HEAD/BRAIN W/O CONT 55103 <Continued> CC: Lucille Nur MD; Vince Jones DO Technologist:RT Susan(R)(CT) CTDI: DLP: Trnscb Date/Time: 01/05/2019 (0055) GeovaniR.[email or web address] Orig Print D/T: S: 01/05/2019 (0058) PAGE 2 Signed Report - CT HEAD/BRAIN W/O TXPW4839-02-21 00:55:00 Name: KALYANI TALAVERA [facility] : 1955 Age/S: 63 / F [address] [facility] Unit #: [id number] Loc: [place] [address] Phys: Vince Jones DO Acct: [id number] Dis Date: Status: DEP ER PHONE #: [phone] Exam Date: 01/05/201949 FAX #: [phone] Reason: Altered Mental Status EXAMS: CPT CODE: [id number] CT HEAD/BRAIN W/O CONT 38100 EXAM: - CT HEAD/BRAIN W/O CONT Location [...] 1 Signed Report (CONTINUED) Name: KALYANI TALAVERA [facility] : 1955 Age/S: 63 / F [address] Unit #: [id number] Loc: [place] [address] Phys: Vince Jones DO Acct: [id number] Dis Date: Status: DEP ER PHONE #: [phone] Exam Date: 01/05/201949 FAX #: [phone] Reason: Altered Mental Status EXAMS: CPT CODE: [id number] CT HEAD/BRAIN W/O CONT 95281 <Continued> CC: Lucille Nur MD; Vince Jones DO Technologist:Faizan Adame, RT(R)(CT) CTDI: DLP: Trnscb Date/Time: 01/05/2019 (54) t.SDR.CB5 Orig Print D/T: S: 01/05/2019 (005) PAGE 2 Signed Report - CT HEAD/BRAIN W/O [id number] 00:55:00 Name: KALYANI TALAVERA [facility] : 1955 Age/S: 63 / F [address] Unit #: [id number] Loc: [place] [address] Phys: Vince Jones DO Acct: [id number] Dis Date: Status: DEP ER PHONE #: [phone] Exam Date: 01/05/201949 FAX #: [phone] Reason: Altered Mental Status EXAMS: CPT CODE: [id number] CT HEAD/BRAIN W/O CONT 71668 EXAM: - CT HEAD/BRAIN W/O CONT Location [...] 1 Signed Report (CONTINUED) Name: KALYANI TALAVERA [facility] : 1955 Age/S: 63 / F [address] [facility] Unit #: [id number] Loc: [place] [address] Phys: Vince Jones DO Acct: [id number] Dis Date: Status: [facility] ER PHONE #: [phone] Exam Date: 01/05/201949 FAX #: [phone] Reason: Altered Mental Status EXAMS: CPT CODE: [id number] CT HEAD/BRAIN W/O CONT 90156 <Continued> CC: Lucille Nur MD; Vince Jones DO Technologist:Faizan Adame, RT(R)(CT) CTDI: DLP: Trnscb Date/Time: 01/05/2019 (005) [email or web address] Orig Print D/T: S: 01/05/2019 (005) PAGE 2 Signed Report GASTRIC,SMLZJF3632-82-22 16:33:00 RUN DATE: 11/16/18 [facility] PAGE 1 RUN TIME: 1633 Specimen Inqui ry RUN USER: INTERFACE PATIENT: KALYANI TALAVERA ACCT #: [id number] LOC: [place] U #: [id number] AGE/SX: 63/F ROOM: RE11/15/18[facility] DR: Kb Bradford MD : 57 BED: DIS: STATUS[place] [facility] [place]: SPEC #: [id number] RECD: 11/15/18 STATUS: SHREYA BROWN #: [id number] MARILEE: 11/15/18-1299 [facility] DR: Kb Bradford MD ENTERED: 11/15/18 SP TYPE: GASTRIC BX OTHR DR: Lucille Torres MDORDERED: HEMANTH COPIES TO: Lucille Nur MD [address] [place] [address] Kb Bradford Si, MD [address] [address] PROCEDURES: GROSS ( 11/16/18-1427) TISSUES: 1. ANTRUM - BX 2. BODY BIOPSY OF STOMA CH CLINICAL HISTORY COLLECTION DATE: 11/15/18 DYSPHAGIA FINAL DIAGNOSIS Gastric antrum, biopsy: SUGGESTIVE OF MILD REACTIVE GA STROPATHY CHANGE NO SIGNIFICANT ACUTE OR CHRONIC INFLAMMATION PRESENT NO AREAS OF MUCOSAL EROSION/ULCERATION NEGATIVE FOR INTESTINAL METAPL DONNA NEGATIVE FOR HELICOBACTER ORGANISMS Gastric body, biopsy: GASTRIC MUCOSA WITH NO DISCRETE PATHOLOGIC ULCERATION [facility]/ D [phone] CONTINUED ON NEXT PAGE RUN DATE: 11/16/18 [facility] PAGE 2 RUN TIME: 1633 Specimen Inquiry RUN USER: INTERFACE SPEC #: [id number] PATIENT: SADAFKHANH GUARDADO #[id number] (Continued) MACROSC OPIC The first specimen is [...] cm, submitted as (2). GROSS PERFORMED AT [facility] [address] [facility] [place] [address] [phone] MICROSCOPIC All of the stains, inc luding any controls performed, stain appropriately. MICROSCOPIC PERFORMED AT [facility] [address] [place] [address] [phone] PERFORMING SITE Diagnosis perf ormed at: [facility] Cons YANETH aceves [address] [place] [address] [phone] Signed SIGNATURE ON FILE Tristan Markham MD 11/16/18 3415 * * END OF REPORT [id number] 06:50:00* Test Item Value Reference Range Interpretation Comments GLUBED (test code = GLUBED) 292 mg/dL 74-106 H Performed by certified vacuum drum drier operator at [facility] - XR RIBS UNI 2 V [id number] 14:33:00 FAX: Amish Nur,Chris [phone] [place]: O St: REG Name: KALYANI CATES [facility] : [birth year] Age/S: 63/F [address] Unit #: [id number] Loc: [place] [address] Phys: Chris Nur MD Acct: [id number] Dis Date: Status: REG CLI PHONE #: [phone] Exam Date: 11/09/2018 1220 FAX #: [phone] Reason: PAIN EXAMS: CPT CODE: [id number] XR RIBS UNI [address] [place] [address] HISTORY: Pain. NINA RISON: Chest x-ray from October 30, 2018. Right rib series. No acute fracture of the right ribs. Study slightly limited due to un derpenetrated technique. IMPRESSION: No right rib fracture. Study is limited due to suboptimal technique. Correlate wi th bone scan for further evaluation as clinically indicated. at 1431 Reported and signed by: Solomon Chowdhury M.D. CC: Lucille Nur MD Technologist: Claire santos RT(R) Trnscrd Date/Time/By: 11/09/2018 (3681) : By: [email or web address] Orig Print D/T: S: 11/09/2018 (0819) PAGE 1 Signed Report [id number] 17:05:00* Test Item Value Reference Range Interpretation Comments GLUBED (test code = GLUBED) 274 mg/dL 74-106 H Performed by certified vacuum drum drier operator at [facility] [id number] 11:39:00* Test Item Value Reference Range Interpretation Comments GLUBED (test code = GLUBED) 284 mg/dL 74-106 H Performed by certified vacuum drum drier operator at [facility] [id number] 07:48:00* Test Item Value Reference Range Interpretation Comments GLUBED (test code = GLUBED) 285 mg/dL 74-106 H Performed by certified vacuum drum drier operator at [facility] EMAQHC9348-30-86 20:08:00* Test Item Value Reference Range Interpretation Comments GLUBED (test code = GLUBED) 252 mg/dL 74-106 H Performed by certified vacuum drum drier operator at [facility] VAYZVR9520-71-77 16:09:00* Test Item Value Reference Range Interpretation Comments GLUBED (test code = GLUBED) 329 mg/dL 74-106 H Performed by certified vacuum drum drier operator at [facility] BASIC METABOLIC [id number] 12:51:00* Test Item Value Reference Range Interpretation [...] CA) 8.6 mg/dL 8.5-10.1 N BASIC METABOLIC [id number] 12:40:00* Test Item Value Reference Range Interpretation [...] CALCIUM (test code = CA) mg/dL 8.5-10.1 [id number] 10:39:00* Test Item Value Reference Range Interpretation Comments GLUBED (test code = GLUBED) 281 mg/dL 74-106 H Performed by certified vacuum drum drier operator at [facility] [id number] 07:54:00* Test Item Value Reference Range Interpretation Comments GLUBED (test code = GLUBED) 299 mg/dL 74-106 H Performed by certified vacuum drum drier operator at [facility] [id number]-[id number] 21:58:00* Test Item Value Reference Range Interpretation Comments TROPONIN-I (test code = TROPI) <0.015 ng/mL 0-0.045 N SPECIMEN COMMENTS: nttufAYDDRU6441-08-07 20:26:00* Test Item Value Reference Range Interpretation Comments GLUBED (test code = GLUBED) 340 mg/dL 74-106 H Performed by certified vacuum drum drier operator at [facility] [id number] 17:09:00* Test Item Value Reference Range Interpretation Comments GLUBED (test code = GLUBED) 370 mg/dL 74-106 H Performed by certified vacuum drum drier operator at [facility] RDYVEM5625-09-32 10:49:00* Test Item Value Reference Range Interpretation Comments GLUBED (test code = GLUBED) 351 mg/dL 74-106 H Performed by certified vacuum drum drier operator at [facility] [id number] 09:54:00* Test Item Value Reference Range Interpretation Comments GLUBED (test code = GLUBED) 304 mg/dL 74-106 H Performed by certified vacuum drum drier operator at [facility] WSJUGWOT-[id number] 09:20:00* Test Item Value Reference Range Interpretation Comments TROPONIN-I (test code = TROPI) <0.015 ng/mL 0-0.045 N COMMENTS TO SEASONAL [place] BUNDLER: COLLECT 3 HOURS AFTER PREVIOUS [id number]-[id number] 03:55:00* Test Item Value Reference Range Interpretation Comments TROPONIN-I (test code = TROPI) <0.015 ng/mL 0-0.045 N COMMENTS TO SEASONAL [place] BUNDLER: COLLECT 3 HOURS AFTER PREVIOUS SAMPLECBC W/AUTO [id number] 01:32:00* Test Item Value Reference Range Interpretation [...] = MDIFF) NO, ONLY SCAN NEEDED DIFFERENTIAL [id number] 01:32:00* Test Item Value Reference Range Interpretation Comments STAIN ACCEPTABILITY (test code = STN ACCEPTABLE) STAIN ACCEPTABLE POLYCHROMASIA (test code = POLC) 1+ HYPOCHROMIA (test code = HYPO) 1+ ANISOCYTOSIS (test code = ANISO) 1+ MICROCYTOSIS (test code = MICR) 1+ PLATELET ESTIMATE (test code = PLTEST) ADEQUATE PLATELET MORPHOLOGY (test code = PLTMORPH) NORMAL URINALYSIS [id number] 01:10:00* Test Item Value Reference Range Interpretation [...] SEEN #/HPF NONE Urine Source? Clean CatchURINALYSIS [id number] 01:06:00* Test Item Value Reference Range Interpretation [...] per HPF NONE Urine Source? Clean CatchURINALYSIS [id number] 01:03:00* Test Item Value Reference Range Interpretation [...] BACU) per HPF NONE Urine Source? Clean OiivvHJSXBO3395-50-62 00:46:00* Test Item Value Reference Range Interpretation Comments GLUBED (test code = GLUBED) 415 mg/dL 74-106 H Performed by certified vacuum drum drier operator at [facility] VENOUS BLOOD [id number] 23:47:00* Test Item Value Reference Range Interpretation [...] METHGB) 0.4 % 0.0-1.50 N COMPREHENSIVE METABOLIC [id number] 23:25:00* Test Item Value Reference Range Interpretation [...] 537 mg/dL 74-106 Re sults called to [id number] by ARMIDAJP1 10/30/18 2325Critical results verified and read back [...] reference range due to change in reagent. [id number] 23:25:00* Test Item Value Reference Range Interpretation Comments LIPASE (test code = LIP) 113 U/L 73.0-393.0 N [id number] 23:25:00* Test Item Value Reference Range Interpretation Comments CKMB (test code = CKMBT) < 1.0 ng/mL 0-6.0 N [id number] 23:25:00* Test Item Value Reference Range Interpretation Comments TROPONIN-I (test code = TROPI) <0.015 ng/mL 0-0.045 N CBC W/AUTO [id number] 23:21:00* Test Item Value Reference Range Interpretation [...] = MDIFF) NO, ONLY SCAN NEEDED DIFFERENTIAL [id number] 23:21:00* Test Item Value Reference Range Interpretation Comments STAIN ACCEPTABILITY (test code = STN ACCEPTABLE) CABOT RINGS (test code = CAB) MORPHOLOGY COMMENT (test code = MOC) PLATELET ESTIMATE (test code = PLTEST) PLATELET MORPHOLOGY (test code = PLTMORPH) CBC W/AUTO [id number] 23:21:00* Test Item Value Reference Range Interpretation [...] = MDIFF) NO, ONLY SCAN NEEDED DIFFERENTIAL [id number] 23:21:00* Test Item Value Reference Range Interpretation Comments STAIN ACCEPTABILITY (test code = STN ACCEPTABLE) CABOT RINGS (test code = CAB) MORPHOLOGY COMMENT (test code = MOC) PLATELET ESTIMATE (test code = PLTEST) PLATELET MORPHOLOGY (test code = PLTMORPH) CBC W/AUTO [id number] 23:21:00* Test Item Value Reference Range Interpretation [...] = MDIFF) NO, ONLY SCAN NEEDED DIFFERENTIAL [id number] 23:21:00* Test Item Value Reference Range Interpretation Comments STAIN ACCEPTABILITY (test code = STN ACCEPTABLE) MORPHOLOGY COMMENT (test code = MOC) PLATELET ESTIMATE (test code = PLTEST) PLATELET MORPHOLOGY (test code = PLTMORPH) CBC W/AUTO [id number] 23:20:00* Test Item Value Reference Range Interpretation [...] = MDIFF) NO, ONLY SCAN NEEDED DIFFERENTIAL [id number] 23:20:00* Test Item Value Reference Range Interpretation Comments STAIN ACCEPTABILITY (test code = STN ACCEPTABLE) CABOT RINGS (test code = CAB) MORPHOLOGY COMMENT (test code = MOC) PLATELET ESTIMATE (test code = PLTEST) PLATELET MORPHOLOGY (test code = PLTMORPH) CBC W/AUTO [id number] 23:08:00* Test Item Value Reference Range Interpretation [...] code = BA#) K/mm3 0.0-0.2 COMPREHENSIVE METABOLIC [id number] 23:06:00* Test Item Value Reference Range Interpretation [...] TOTAL (test code = ALKP) IUnit/L 45-117 [id number] 23:06:00* Test Item Value Reference Range Interpretation Comments LIPASE (test code = LIP) U/L 73.0-393.0 [id number] 23:06:00* Test Item Value Reference Range Interpretation Comments CKMB (test code = CKMBT) ng/mL 0-6.0 [id number]-[id number] 23:06:00* Test Item Value Reference Range Interpretation Comments TROPONIN-I (test code = TROPI) ng/mL 0-0.045 - XR CHEST 2 [id number] 23:03:00 FAX: Amish LiudmilaChris [phone] [place]: St: REG FAX: Leonora Norton [phone] Name: KALYANI TALAVERA [facility] : 1955 Age/S: 63/F [address] [facility] Unit #: [id number] Loc: [place] [address] Phys: Leonora Goins MD Acct: [id number] Dis Date: Status: REG ER PHONE #: [phone] Exam Date: 10/30/2018 2241 FAX #: [phone] Reason: cp EXAMS: CPT CODE: [id number] XR CHEST 2 V 44513 REASON FOR EXAM: cp Exam Order Date: [...] MD Technologist: Janeen Dunbar Trnscrd Date/Time/By: 10/30/2018 (2303) : By: KednyL Orig Print D/T: S: 10/30/2018 (5786) PAGE 1 Signed Report GLUBED 2018-10-12 11:21:00* Test Item Value Reference Range Interpretation Comments GLUBED (test code = GLUBED) 189 mg/dL 74-106 H Performed by certified vacuum drum drier operator at [facility] [id number] 10:37:00* Test Item Value Reference Range Interpretation Comments GLUBED (test code = GLUBED) 190 mg/dL 74-106 H Performed by certified vacuum drum drier operator at [facility] [id number] 21:08:00* Test Item Value Reference Range Interpretation Comments GLUBED (test code = GLUBED) 156 mg/dL 74-106 H Performed by certified vacuum drum drier operator at [facility] [id number] 16:01:00* Test Item Value Reference Range Interpretation Comments GLUBED (test code = GLUBED) 122 mg/dL 74-106 H Performed by certified vacuum drum drier operator at [facility] [id number] 12:56:00* Test Item Value Reference Range Interpretation Comments GLUBED (test code = GLUBED) 173 mg/dL 74-106 H Performed by certified vacuum drum drier operator at [facility] [id number] 07:28:00* Test Item Value Reference Range Interpretation Comments GLUBED (test code = GLUBED) 221 mg/dL 74-106 H Performed by certified vacuum drum drier operator at [facility] [id number] 20:54:00* Test Item Value Reference Range Interpretation Comments GLUBED (test code = GLUBED) 261 mg/dL 74-106 H Performed by certified vacuum drum drier operator at [facility] [id number] 15:03:00* Test Item Value Reference Range Interpretation Comments GLUBED (test code = GLUBED) 167 mg/dL 74-106 H Performed by certified vacuum drum drier operator at [facility] [id number] 11:23:00* Test Item Value Reference Range Interpretation Comments GLUBED (test code = GLUBED) 206 mg/dL 74-106 H Performed by certified vacuum drum drier operator at [facility] BASIC METABOLIC [id number] 07:57:00* Test Item Value Reference Range Interpretation [...] code = CA) 8.5 mg/dL 8.5-10.1 N [id number] 07:29:00* Test Item Value Reference Range Interpretation Comments GLUBED (test code = GLUBED) 239 mg/dL 74-106 H Performed by certified vacuum drum drier operator at [facility] KZJWPE1114-29-16 05:00:00* Test Item Value Reference Range Interpretation Comments GLUBED (test code = GLUBED) 234 mg/dL 74-106 H Performed by certified vacuum drum drier operator at [facility] [id number] 20:10:00* Test Item Value Reference Range Interpretation Comments GLUBED (test code = GLUBED) 204 mg/dL 74-106 H Performed by certified vacuum drum drier operator at [facility] [id number] 17:08:00* Test Item Value Reference Range Interpretation Comments GLUBED (test code = GLUBED) 243 mg/dL 74-106 H Performed by certified vacuum drum drier operator at [facility] T4 [id number] 14:42:00* Test Item Value Reference Range Interpretation Comments T4 FREE (test code = T4F) 7.60 ng/dL 0.76-1.46 H THYROID STIMULATING [id number] 14:42:00* Test Item Value Reference Range Interpretation Comments THYROID STIMULATING HORMONE (test code = TSH) 0.812 uIU/mL 0.36-3.7 4 N TSH REFERENCE RANGES: EUTHYROID: 0.35 - 4.3 mIU/mL HYPO : > 5.5 mIU/mL HYPER : < 0.35 mIU/mL T4 [id number] 14:03:00* Test Item Value Reference Range Interpretation Comments T4 FREE (test code = T4F) ng/dL 0.76-1.46 THYROID STIMULATING [id number] 14:03:00* Test Item Value Reference Range Interpretation Comments THYROID STIMULATING HORMONE (test code = TSH) 0.812 uIU/mL 0.36-3.7 4 N TSH REFERENCE RANGES: EUTHYROID: 0.35 - 4.3 mIU/mL HYPO : > 5.5 mIU/mL HYPER : < 0.35 mIU/mL [id number] 12:01:00* Test Item Value Reference Range Interpretation Comments GLUBED (test code = GLUBED) 232 mg/dL 74-106 H Performed by certified vacuum drum drier operator at [facility] [id number] 07:31:00* Test Item Value Reference Range Interpretation Comments GLUBED (test code = GLUBED) 253 mg/dL 74-106 H Performed by certified vacuum drum drier operator at [facility] BASIC METABOLIC [id number] 05:59:00* Test Item Value Reference Range Interpretation [...] CA) 8.4 mg/dL 8.5-10.1 L BASIC METABOLIC [id number] 05:56:00* Test Item Value Reference Range Interpretation [...] CALCIUM (test code = CA) mg/dL 8.5-10.1 [id number] 03:37:00* Test Item Value Reference Range Interpretation Comments GLUBED (test code = GLUBED) 302 mg/dL 74-106 H Performed by certified vacuum drum drier operator at [facility] T4 [id number] 20:00:00* Test Item Value Reference Range Interpretation Comments T4 FREE (test code = T4F) 0.97 ng/dL 0.76-1.46 N THYROID STIMULATING [id number] 20:00:00* Test Item Value Reference Range Interpretation Comments THYROID STIMULATING HORMONE (test code = TSH) 0.336 uIU/mL 0.36-3.7 4 L TSH REFERENCE RANGES: EUTHYROID: 0.35 - 4.3 mIU/mL HYPO : > 5.5 mIU/mL HYPER : < 0.35 mIU/mL [id number] 19:59:00* Test Item Value Reference Range Interpretation Comments GLYCOSYLATED HEMOGLOBIN (HA1C) (test code = GLYHGB) 9.7 % HbA1 4. 8-6.0 H ESTIMATED AVERAGE GLUCOSE (test code = EAG) 232 MG/DL [id number] 19:43:00* Test Item Value Reference Range Interpretation Comments GLUBED (test code = GLUBED) 301 mg/dL 74-106 H Performed by certified vacuum drum drier operator at [facility] [id number] 17:38:00* Test Item Value Reference Range Interpretation Comments GLUBED (test code = GLUBED) 242 mg/dL 74-106 H Performed by certified vacuum drum drier operator at [facility] [id number] 13:43:00* Test Item Value Reference Range Interpretation Comments TROPONIN-I (test code = TROPI) <0.015 ng/mL 0-0.045 N COMMENTS TO [facility] [place] BUNDLER: COLLECT 3 HOURS AFTER PREVIOUS AOYOSYRHFSUP1546-17-00 13:19:00* Test Item Value Reference Range Interpretation Comments GLUBED (test code = GLUBED) 243 mg/dL 74-106 H Performed by certified vacuum drum drier operator at [facility] JYTWQWAW-[id number] 10:44:00* Test Item Value Reference Range Interpretation Comments TROPONIN-I (test code = TROPI) <0.015 ng/mL 0-0.045 N COMMENTS TO SEASONAL [place] BUNDLER: COLLECT 3 HOURS AFTER PREVIOUS [id number] 08:17:00* Test Item Value Reference Range Interpretation Comments GLUBED (test code = GLUBED) 164 mg/dL 74-106 H Performed by certified vacuum drum drier operator at [facility] BASIC METABOLIC [id number] 08:09:00* Test Item Value Reference Range Interpretation [...] mg/dL 74-106 LL Re sults called to [id number] by V.LAB.LDB 10/08/18 0807Critical results verified and [...] CA) 8.5 mg/dL 8.5-10.1 N HEPATIC FUNCTION [id number] 08:09:00* Test Item Value Reference Range Interpretation [...] reference range due to change in reagent. [id number] 08:09:00* Test Item Value Reference Range Interpretation Comments LIPASE (test code = LIP) 70 U/L 73.0-393.0 L [id number] 08:09:00* Test Item Value Reference Range Interpretation [...] into account the patients history. B-TYPE NATRIURETIC [id number] 06:52:00* Test Item Value Reference Range Interpretation Comments B-TYPE NATRIURETIC PEPTIDE (test code = BNP) 10.07 pgram/mL 0-100 N [id number] 06:43:00* Test Item Value Reference Range Interpretation Comments GLUBED (test code = GLUBED) 36 mg/dL 74-106 LL Performed by certified vacuum drum drier operator at [facility] URINALYSIS [id number] 06:19:00* Test Item Value Reference Range Interpretation [...] FEW #/LPF FEW Urine Source? Clean CatchLACTIC [id number] 06:15:00* Test Item Value Reference Range Interpretation Comments LACTIC ACID (test code = LACT) 0.9 mmol/L 0.4-1.9 N - XR CHEST 1 [id number] 05:44:00 FAX: Amish Nur,Chris [phone] [place]: St: REG Name: KALYANI CATES [facility] : [birth year] Age/S: 63/F [address] [facility] Unit #: [id number] Loc: [place] [address] Phys: Elena Cedeño MD Acct: [id number] Dis Date: Status: REG ER PHONE #: [phone] Exam Date: 10/08/2018 05 FAX #: [phone] Reason: CHEST PAIN EXAMS: CPT CODE: [id number] XR CHEST 1 V 76057 HISTORY: Chest pain. Location: C3 COMPARISON:09/18/2017 FINDINGS: There is mild cardiomegaly. There is elevation of the right hemid iaphragm. No pneumothorax. No focal consolidation. No other changes. IMPRESSION: 1. Elevated right hemidiaphragm. Mi ld cardiomegaly. No other acute abnormality. at 0536 Report ed and signed by: Kizzy Dietrich MD CC: Lucille Nur MD Technologist: Marcelino Reid RT(R) Trnscrd Date/Time/By: 10/08/2018 (0551) : By: Festus XC2 Orig Print D/T: S: 10/08/2018 (8757) PAGE 1 Signed Report PROTHROMBIN [id number] 05:38:00* Test Item Value Reference Range Interpretation [...] (2.5-3.5) IS PATIENT ON ANTICOAGULANTS? NTHROMBOPLASTIN TIME [id number] 05:38:00* Test Item Value Reference Range Interpretation Comments THROMBOPLASTIN TIME PARTIAL (test code = PTT) 32.9 seconds 25.0-36. 5 N IS PATIENT ON ANTICOAGULANTS? IM-[id number] 05:38:00* Test Item Value Reference Range Interpretation [...] - IS PATIENT ON ANTICOAGULANTS? NCBC W/O [id number] 05:27:00* Test Item Value Reference Range Interpretation [...] MPV) 10.6 fL 6.7-11.0 N ARTERIAL BLOOD [id number] 05:25:00* Test Item Value Reference Range Interpretation [...] 16.4 % vol 18.0-22.0 L CBC W/O [id number] 05:20:00* Test Item Value Reference Range Interpretation [...] VOLUME (test code = MPV) fL 6.7-11.0 [id number] 05:06:00* Test Item Value Reference Range Interpretation Comments GLUBED (test code = GLUBED) 73 mg/dL 74-106 L Performed by certified vacuum drum drier operator at [facility] FOREARM RIGHT 2 [id number] 20:47:00 [place] [address] Patient Name: KALYANI TALAVERA MR #: [id number] : 1955 Age/Sex: 63/F Req #: [id number] Adm Physician: Ordered by: FLO TOLBERT MD Report #: [id number] Location: ER Room/Bed: Procedure: [id number] DX /FOREARM RIGHT 2 VIEW Exam Date: [...] 049 COPY TO: FLO TOLBERT MD Bedside Lltiymf4941-02-03 14:02:00 * Test Item Value Reference Range Interpretation Comments Bedside Glucose (test code = 57347-0) 68 70-120 L Meter ID: [id number] [facility]als [facility] Glucose 2018-07-11 14:02:00* Test Item Value Reference Range Interpretation Comments Bedside Glucose (test code = 62567-1) 68 70-120 L Meter ID: [id number] [facility] Glucose 2018-07-11 14:02:00* Test Item Value Reference Range Interpretation Comments Bedside Glucose (test code = 60020-6) 68 70-120 L Meter ID: [id number] CenterB-Type Natriuretic Ashvgol1210-02-80 12:44:00* Test Item Value Reference Range Interpretation Comments B-Type Natriuretic Peptide (test code = 50992-0) 43.1 0-100 [facility] Natriuretic Mcbdehf7665-30-39 12:44:00* Test Item Value Reference Range Interpretation Comments B-Type Natriuretic Peptide (test code = 78268-1) 43.1 0-100 [facility] CenterCT MAXIO FAC/PARANAS [id number] 12:32:00 [place] [address] Patient Name: KALYANI TALAVERA MR #: [id number] : 1955 Age/Sex: 63/F Req #: [id number] Adm Physician: Ordered by: ELIESER DAWSON MD Report #: [id number] Location: ER Room/Bed: Procedure: [id number] CT/CT MAXIO FAC/PARANAS WO Exam Date: 07/11/18 [...] COPY TO: ELIESER DAWSON MD CT BRAIN [id number] 12:26:00 [facility] [address] [place] [address] Patient Name: KALYANI TALAVERA MR #: [id number] : 1955 Age/Sex: 63/F Req #: [id number] Adm Physician: Ordered by: ELIESER DAWSON MD Report #: [id number] Location: ER Room/Bed: Procedure: [id number] CT/CT BRAIN WO Exam Date: 07/11/18 Exam [...] 12:31 PM Dictated By: ANDREI LUTZ MD 123 Transcribed By: JIM on 07/11/18 1231 COPY TO: ELIESER DAWSON MD Lactic Acid [id number] 12:24:00* Test Item Value Reference Range Interpretation Comments Lactic Acid Level (test code = Lactic Acid Level) 7.1 4.5- 19.8 [facility] CenterLactic Acid Mdahw5213-01-65 12:24:00* Test Item Value Reference Range Interpretation Comments Lactic Acid Level (test code = Lactic Acid Level) 7.1 4.5- 19.8 [facility] Uxfwc5280-29-84 12:24:00* Test Item Value Reference Range Interpretation Comments Lactic Acid Level (test code = Lactic Acid Level) 7.1 4.5- 19.8 [facility] CenterL[facility] Acid Mdpic2325-09-25 12:24:00* Test Item Value Reference Range Interpretation Comments Lactic Acid Level (test code = Lactic Acid Level) 7.1 4.5- 19.8 [facility] Oyqhn4308-56-51 12:24:00* Test Item Value Reference Range Interpretation Comments Lactic Acid Level (test code = Lactic Acid Level) 7.1 4.5- 19.8 [facility] CenterLactic Acid Xrcag7983-82-80 12:24:00* Test Item Value Reference Range Interpretation Comments Lactic Acid Level (test code = Lactic Acid Level) 7.1 4.5- 19.8 [facility] CenterLactic Acid Udfgc8470-06-95 12:24:00* Test Item Value Reference Range Interpretation Comments Lactic Acid Level (test code = Lactic Acid Level) 7.1 4.5- 19.8 [facility] Hjuwh2601-20-90 12:24:00* Test Item Value Reference Range Interpretation Comments Lactic Acid Level (test code = Lactic Acid Level) 7.1 4.5- 19.8 [facility] CenterLactic Acid Ehege3598-31-14 12:24:00* Test Item Value Reference Range Interpretation Comments Lactic Acid Level (test code = Lactic Acid Level) 7.1 4.5- 19.8 [facility] CenterLactic Acid Najsi7041-99-73 12:24:00* Test Item Value Reference Range Interpretation Comments Lactic Acid Level (test code = Lactic Acid Level) 7.1 4.5- 19.8 [facility] CenterCreatine Kinase TG7502-90-64 12:17:00* Test Item Value Reference Range Interpretation Comments Creatine Kinase MB (test code = 55558-0) 2.60 0-5.0 [facility] CenterTroponin E0892-88-26 12:17:00* Test Item Value Reference Range Interpretation Comments Troponin I (test code = QQO7974) < 0.001 0-0.300 [facility] CenterCreatine Kinase IW7633-30-57 12:17:00* Test Item Value Reference Range Interpretation Comments Creatine Kinase MB (test code = 30658-0) 2.60 0-5.0 [facility] CenterTroponin [id number] 12:17:00* Test Item Value Reference Range Interpretation Comments Troponin I (test code = TGB9567) < 0.001 0-0.300 [facility] CenterActivated Partial Thromboplast Time 2018-07-11 12:09:00* Test Item Value Reference Range Interpretation Comments Activated Partial Thromboplast Time (test code = 63847-8) 20.8 23.8-35.5 L [facility] Zseso3784-56-38 12:09:00* Test Item Value Reference Range Interpretation Comments Sodium Level (test code = 2951-2) 141 136-145 [facility] CenterPotassium Tscvm1658-61-15 12:09:00* Test Item Value Reference Range Interpretation Comments Potassium Level (test code = 2823-3) 4.5 3.5-5.1 [facility] CenterChloride Dulgj4109-18-06 12:09:00* Test Item Value Reference Range Interpretation Comments Chloride Level (test code = 2075-0) 110 98-107 H [facility] CenterCarbon Dioxide Tesgr1835-46-14 12:09:00* Test Item Value Reference Range Interpretation Comments Carbon Dioxide Level (test code = 2028-9) 22 22-29 [facility] CenterAnion Ted8744-73-29 12:09:00* Test Item Value Reference Range Interpretation Comments Anion Gap (test code = 08860-6) 13.5 8-16 [facility] CenterBlood Urea Cigssuue1695-33-08 12:09:00* Test Item Value Reference Range Interpretation Comments Blood Urea Nitrogen (test code = 3094-0) 28 7-26 H [facility] CenterCreatinine2018-12-19 12:09:00* Test Item Value Reference Range Interpretation Comments Creatinine (test code = 2160-0) 0.92 0.57-1.11 [facility] CenterBUN/Creatinine Lnlci9751-08-01 12:09:00* Test Item Value Reference Range Interpretation Comments BUN/Creatinine Ratio (test code = 3097-3) 30 6-25 H [facility] Medical CenterEstimat Glomerular Filtration Rate 2018-07-11 12:09:00* Test Item Value Reference Range Interpretation Comments Estimat Glomerular Filtration Rate (test code = 770616491) > 60 >60 Ranges were taken from the National Kidney Disease Education Program and the Jenise unc healthal [employer] literature.Reference ranges:60 or greater: Mnopai68-76 ( for 3 consecutive months): Chronic kidney disease 15 or less: Kidney failureMemorial Hermann–Texas Medical CenterGlucose Ilcjv8029-85-34 12:09:00* Test Item Value Reference Range Interpretation Comments Glucose Level (test code = FOV6607) 62 74-118 L [facility] CenterCalcium Ifkbk1240-30-36 12:09:00* Test Item Value Reference Range Interpretation Comments Calcium Level (test code = 97786-8) 9.2 8.4-10.2 [facility] [facility] CenterTotal Yiulfirep2861-96-39 12:09:00* Test Item Value Reference Range Interpretation Comments Total Bilirubin (test code = 1975-2) 0.3 0.2-1.2 [facility] CenterAspartate Amino Transf (AST/SGOT) 2018-07-11 12:09:00* Test Item Value Reference Range Interpretation Comments Aspartate Amino Transf (AST/SGOT) (test code = Aspartate Amino Transf (AST/SGOT)) 17 5-34 [facility] CenterAlanine Aminotransferase (ALT/SGPT) 2018-07-11 12:09:00* Test Item Value Reference Range Interpretation Comments Alanine Aminotransferase (ALT/SGPT) (test code = 1742-6) 18 0-55 [facility] CenterTotal Kkwepmi9319-54-66 12:09:00* Test Item Value Reference Range Interpretation Comments Total Protein (test code = 2885-2) 6.9 6.5-8.1 [facility] CenterAlbumin2018-12-19 12:09:00* Test Item Value Reference Range Interpretation Comments Albumin (test code = 1751-7) 3.6 3.5-5.0 [facility] CenterGlobulin2018-12-19 12:09:00* Test Item Value Reference Range Interpretation Comments Globulin (test code = 40896-1) 3.3 2.3-3.5 [facility] CenterAlbumin/Globulin Vhqqu2871-43-04 12:09:00 * Test Item Value Reference Range Interpretation Comments Albumin/Globulin Ratio (test code = 1759-0) 1.1 0.8-2.0 [facility] CenterAlkaline Ywmwlxzbbii3926-06-17 12:09:00* Test Item Value Reference Range Interpretation Comments Alkaline Phosphatase (test code = 6768-6) 55 40-150 [facility] CenterCreatine Exysuz2469-82-12 12:09:00* Test Item Value Reference Range Interpretation Comments Creatine Kinase (test code = 2157-6) 71 29-168 [facility] CenterActivated Partial Thromboplast Time 2018-07-11 12:09:00* Test Item Value Reference Range Interpretation Comments Activated Partial Thromboplast Time (test code = 23641-9) 20.8 23.8-35.5 L [facility]odium [place]4685-20-01 12:09:00* Test Item Value Reference Range Interpretation Comments Sodium Level (test code = 2951-2) 141 136-145 [facility] CenterPotassium Zujwy5914-31-63 12:09:00* Test Item Value Reference Range Interpretation Comments Potassium Level (test code = 2823-3) 4.5 3.5-5.1 [facility] CenterChloride Wwsrg7728-09-51 12:09:00* Test Item Value Reference Range Interpretation Comments Chloride Level (test code = 2075-0) 110 98-107 H [facility] CenterCarbon Dioxide Xkrnm2546-38-92 12:09:00* Test Item Value Reference Range Interpretation Comments Carbon Dioxide Level (test code = 2028-9) 22 22-29 [facility] CenterAnion Vlm0823-10-47 12:09:00* Test Item Value Reference Range Interpretation Comments Anion Gap (test code = 44832-2) 13.5 8-16 [facility] CenterBlood Urea Sggtkpcd5418-94-35 12:09:00* Test Item Value Reference Range Interpretation Comments Blood Urea Nitrogen (test code = 3094-0) 28 7-26 H [facility] CenterCreatinine2018-12-19 12:09:00* Test Item Value Reference Range Interpretation Comments Creatinine (test code = 2160-0) 0.92 0.57-1.11 [facility] CenterBUN/Creatinine Wglqh7836-50-87 12:09:00* Test Item Value Reference Range Interpretation Comments BUN/Creatinine Ratio (test code = 3097-3) 30 6-25 H [facility] CenterEstimat Glomerular Filtration Rate 2018-07-11 12:09:00* Test Item Value Reference Range Interpretation Comments Estimat Glomerular Filtration Rate (test code = 032404663) > 60 >60 Ranges were taken from the National Kidney Disease Education Program and the [facility] Kidney Foundation literature.Reference ranges:60 or greater: Xxqhgv32-44 ( for 3 consecutive months): Chronic kidney disease 15 or less: Kidney failureMemorial Hermann–[facility] Medical CenterGlucose Ofpsc9613-95-95 12:09:00* Test Item Value Reference Range Interpretation Comments Glucose Level (test code = KBK6551) 62 74-118 L [facility] CenterCalcium Uitzi3653-50-67 12:09:00* Test Item Value Reference Range Interpretation Comments Calcium Level (test code = 86816-9) 9.2 8.4-10.2 [facility] CenterTotal Cidnxphab2949-53-05 12:09:00* Test Item Value Reference Range Interpretation Comments Total Bilirubin (test code = 1975-2) 0.3 0.2-1.2 [facility] CenterAspartate Amino Transf (AST/SGOT) 2018-07-11 12:09:00* Test Item Value Reference Range Interpretation Comments Aspartate Amino Transf (AST/SGOT) (test code = Aspartate Amino Transf (AST/SGOT)) 17 5-34 [facility] CenterAlanine Aminotransferase (ALT/SGPT) 2018-07-11 12:09:00* Test Item Value Reference Range Interpretation Comments Alanine Aminotransferase (ALT/SGPT) (test code = 1742-6) 18 0-55 [facility] CenterTotal Euzxcif0716-76-93 12:09:00* Test Item Value Reference Range Interpretation Comments Total Protein (test code = 2885-2) 6.9 6.5-8.1 [facility] CenterAlbumin2018-12-19 12:09:00* Test Item Value Reference Range Interpretation Comments Albumin (test code = 1751-7) 3.6 3.5-5.0 [facility] CenterGlobulin2018-12-19 12:09:00* Test Item Value Reference Range Interpretation Comments Globulin (test code = 55574-9) 3.3 2.3-3.5 [facility] CenterAlbumin/Globulin Yehpm9381-08-65 12:09:00 * Test Item Value Reference Range Interpretation Comments Albumin/Globulin Ratio (test code = 1759-0) 1.1 0.8-2.0 [facility] CenterAlkaline Uwdlnguidmg8841-81-66 12:09:00* Test Item Value Reference Range Interpretation Comments Alkaline Phosphatase (test code = 6768-6) 55 40-150 [facility] CenterCreatine Oqhoba0590-89-82 12:09:00* Test Item Value Reference Range Interpretation Comments Creatine Kinase (test code = 2157-6) 71 29-168 [facility] CenterActivated Partial Thromboplast Time 2018-07-11 12:09:00* Test Item Value Reference Range Interpretation Comments Activated Partial Thromboplast Time (test code = 29546-2) 20.8 23.8-35.5 L [facility] CenterProthrombin Ecyq8578-93-61 11:59:00* Test Item Value Reference Range Interpretation Comments Prothrombin Time (test code = 5902-2) 13.5 11.9-14.5 [facility] CenterProthromb Time International Ratio 2018-07-11 11:59:00* Test Item Value Reference Range Interpretation Comments Prothromb Time International Ratio (test code = 6301-6) 0.95 Oral Anticoagulant Therapy INR Values:1. Low Intensity Therapy 1.5 - 2.02 . Moderate Intensity Therapy 2.0 - 3.03. High Intensity Therapy(1) 2.5 - 3. 54. High Intensity Therapy(2) 3.0 - 4.05. Panic Value INR > 5.0 [facility] CenterProthrombin Ozga5359-05-09 11:59:00* Test Item Value Reference Range Interpretation Comments Prothrombin Time (test code = 5902-2) 13.5 11.9-14.5 [facility] CenterProthromb Time International Ratio 2018-07-11 11:59:00* Test Item Value Reference Range Interpretation Comments Prothromb Time International Ratio (test code = 6301-6) 0.95 Oral Anticoagulant Therapy INR Values:1. Low Intensity Therapy 1.5 - 2.02 . Moderate Intensity Therapy 2.0 - 3.03. High Intensity Therapy(1) 2.5 - 3. 54. High Intensity Therapy(2) 3.0 - 4.05. Panic Value INR > 5.0 [facility] CenterProthrombin Qcdt4398-50-69 11:59:00* Test Item Value Reference Range Interpretation Comments Prothrombin Time (test code = 5902-2) 13.5 11.9-14.5 [facility] CenterProthromb Time International Ratio 2018-07-11 11:59:00* Test Item Value Reference Range Interpretation Comments Prothromb Time International Ratio (test code = 6301-6) 0.95 Oral Anticoagulant Therapy INR Values:1. Low Intensity Therapy 1.5 - 2.02 . Moderate Intensity Therapy 2.0 - 3.03. High Intensity Therapy(1) 2.5 - 3. 54. High Intensity Therapy(2) 3.0 - 4.05. Panic Value INR > 5.0 [facility] CenterWhite Blood Pzfgr4287-69-46 11:54:00* Test Item Value Reference Range Interpretation Comments White Blood Count (test code = 6690-2) 6.79 4.8-10.8 [facility] CenterRed Blood Ztuvj5437-57-78 11:54:00* Test Item Value Reference Range Interpretation Comments Red Blood Count (test code = 789-8) 4.38 3.6-5.1 [facility] CenterHemoglobin2018-12-19 11:54:00* Test Item Value Reference Range Interpretation Comments Hemoglobin (test code = 14228-9) 11.4 12.0-16.0 L [facility] CenterHematocrit2018-12-19 11:54:00* Test Item Value Reference Range Interpretation Comments Hematocrit (test code = 4544-3) 38.1 34.2-44.1 [facility] CenterMean Corpuscular Fvtszo1028-68-82 11:54:00* Test Item Value Reference Range Interpretation Comments Mean Corpuscular Volume (test code = 787-2) 87.0 81-99 [facility] CenterMean Corpuscular Sfkatdzazw4787-63-09 11:54:00* Test Item Value Reference Range Interpretation Comments Mean Corpuscular Hemoglobin (test code = 785-6) 26.0 28-32 L [facility] Corpuscular Hemoglobin Concent 2018-07-11 11:54:00* Test Item Value Reference Range Interpretation Comments Mean Corpuscular Hemoglobin Concent (test code = 786-4) 29.9 31-35 L [facility] CenterRed Cell Distribution Hepol6840-64-29 11:54:00* Test Item Value Reference Range Interpretation Comments Red Cell Distribution Width (test code = 80336-4) 16.0 11.7 -14.4 H [facility] CenterPlatelet Tatrp8159-39-88 11:54:00* Test Item Value Reference Range Interpretation Comments Platelet Count (test code = 777-3) 204 140-360 [facility] CenterNeutrophils (%) (Auto)2018-07-11 11:54:00 * Test Item Value Reference Range Interpretation Comments Neutrophils (%) (Auto) (test code = 08578-0) 76.3 38.7-80.0 [facility] CenterLymphocytes (%) (Auto)2018-07-11 11:54:00 * Test Item Value Reference Range Interpretation Comments Lymphocytes (%) (Auto) (test code = 736-9) 10.3 18.0-39.1 L [facility] CenterMonocytes (%) (Auto)2018-07-11 11:54:00* Test Item Value Reference Range Interpretation Comments Monocytes (%) (Auto) (test code = 5905-5) 5.9 4.4-11.3 [facility] CenterEosinophils (%) (Auto)2018-07-11 11:54:00 * Test Item Value Reference Range Interpretation Comments Eosinophils (%) (Auto) (test code = 713-8) 2.7 0.0-6.0 [facility] CenterBasophils (%) (Auto)2018-07-11 11:54:00* Test Item Value Reference Range Interpretation Comments Basophils (%) (Auto) (test code = 706-2) 1.0 0.0-1.0 [facility] CenterIM GRANULOCYTES %2018-07-11 11:54:00* Test Item Value Reference Range Interpretation Comments IM GRANULOCYTES % (test code = IM GRANULOCYTES %) 3.8 0.0- 1.0 H [facility] CenterNeutrophils # (Auto)2018-07-11 11:54:00* Test Item Value Reference Range Interpretation Comments Neutrophils # (Auto) (test code = 751-8) 5.2 2.1-6.9 [facility] CenterLymphocytes # (Auto)2018-07-11 11:54:00* Test Item Value Reference Range Interpretation Comments Lymphocytes # (Auto) (test code = 46218-1) 0.7 1.0-3.2 L [facility] CenterMonocytes # (Auto)2018-07-11 11:54:00* Test Item Value Reference Range Interpretation Comments Monocytes # (Auto) (test code = 742-7) 0.4 0.2-0.8 [facility] CenterEosinophils # (Auto)2018-07-11 11:54:00* Test Item Value Reference Range Interpretation Comments Eosinophils # (Auto) (test code = 711-2) 0.2 0.0-0.4 [facility] CenterBasophils # (Auto)2018-07-11 11:54:00* Test Item Value Reference Range Interpretation Comments Basophils # (Auto) (test code = 704-7) 0.1 0.0-0.1 [facility] CenterAbsolute Immature Granulocyte (auto 2018-07-11 11:54:00* Test Item Value Reference Range Interpretation Comments Absolute Immature Granulocyte (auto (joseph t code = Absolute Immature Granulocyte (auto) 0.26 0-0.1 H [facility] CenterWhite Blood Yvlbg8306-77-63 11:54:00* Test Item Value Reference Range Interpretation Comments White Blood Count (test code = 6690-2) 6.79 4.8-10.8 [facility] CenterRed Blood Oksal6910-82-92 11:54:00* Test Item Value Reference Range Interpretation Comments Red Blood Count (test code = 789-8) 4.38 3.6-5.1 [facility] CenterHemoglobin2018-12-19 11:54:00* Test Item Value Reference Range Interpretation Comments Hemoglobin (test code = 15612-0) 11.4 12.0-16.0 L [facility] CenterHematocrit2018-12-19 11:54:00* Test Item Value Reference Range Interpretation Comments Hematocrit (test code = 4544-3) 38.1 34.2-44.1 [facility] CenterMean Corpuscular Vbfzho2749-32-18 11:54:00* Test Item Value Reference Range Interpretation Comments Mean Corpuscular Volume (test code = 787-2) 87.0 81-99 [facility] CenterMean Corpuscular Hoffmjgxuj2832-83-86 11:54:00* Test Item Value Reference Range Interpretation Comments Mean Corpuscular Hemoglobin (test code = 785-6) 26.0 28-32 L [facility] CenterMean Corpuscular Hemoglobin Concent 2018-07-11 11:54:00* Test Item Value Reference Range Interpretation Comments Mean Corpuscular Hemoglobin Concent (test code = 786-4) 29.9 31-35 L [facility] CenterRed Cell Distribution Ggqtx3727-30-83 11:54:00* Test Item Value Reference Range Interpretation Comments Red Cell Distribution Width (test code = 61486-0) 16.0 11.7 -14.4 H [facility] CenterPlatelet Qijol4478-07-29 11:54:00* Test Item Value Reference Range Interpretation Comments Platelet Count (test code = 777-3) 204 140-360 [facility] CenterNeutrophils (%) (Auto)2018-07-11 11:54:00 * Test Item Value Reference Range Interpretation Comments Neutrophils (%) (Auto) (test code = 92055-9) 76.3 38.7-80.0 [facility] CenterLymphocytes (%) (Auto)2018-07-11 11:54:00 * Test Item Value Reference Range Interpretation Comments Lymphocytes (%) (Auto) (test code = 736-9) 10.3 18.0-39.1 L [facility] CenterMonocytes (%) (Auto)2018-07-11 11:54:00* Test Item Value Reference Range Interpretation Comments Monocytes (%) (Auto) (test code = 5905-5) 5.9 4.4-11.3 [facility] CenterEosinophils (%) (Auto)2018-07-11 11:54:00 * Test Item Value Reference Range Interpretation Comments Eosinophils (%) (Auto) (test code = 713-8) 2.7 0.0-6.0 [facility] CenterBasophils (%) (Auto)2018-07-11 11:54:00* Test Item Value Reference Range Interpretation Comments Basophils (%) (Auto) (test code = 706-2) 1.0 0.0-1.0 [facility] CenterIM GRANULOCYTES %2018-07-11 11:54:00* Test Item Value Reference Range Interpretation Comments IM GRANULOCYTES % (test code = IM GRANULOCYTES %) 3.8 0.0- 1.0 H [facility] CenterNeutrophils # (Auto)2018-07-11 11:54:00* Test Item Value Reference Range Interpretation Comments Neutrophils # (Auto) (test code = 751-8) 5.2 2.1-6.9 [facility] CenterLymphocytes # (Auto)2018-07-11 11:54:00* Test Item Value Reference Range Interpretation Comments Lymphocytes # (Auto) (test code = 43392-5) 0.7 1.0-3.2 L [facility] CenterMonocytes # (Auto)2018-07-11 11:54:00* Test Item Value Reference Range Interpretation Comments Monocytes # (Auto) (test code = 742-7) 0.4 0.2-0.8 [facility] CenterEosinophils # (Auto)2018-07-11 11:54:00* Test Item Value Reference Range Interpretation Comments Eosinophils # (Auto) (test code = 711-2) 0.2 0.0-0.4 [facility] CenterBasophils # (Auto)2018-07-11 11:54:00* Test Item Value Reference Range Interpretation Comments Basophils # (Auto) (test code = 704-7) 0.1 0.0-0.1 [facility] CenterAbsolute Immature Granulocyte (auto 2018-07-11 11:54:00* Test Item Value Reference Range Interpretation Comments Absolute Immature Granulocyte (auto (joseph t code = Absolute Immature Granulocyte (auto) 0.26 0-0.1 H [facility] TM7561-20-11 11:47:00 [facility] [address] [address] Patient Name: KALYANI TALAVERA MR #: [id number] : 1955 Age/Sex: 63/F Req #: [id number] Adm Physician: Ordered by: ELIESER DAWSON MD Report #: [id number] Location: ER Room/Bed: Procedure: [id number] CT/CT CERVICAL SPINE WO Exam Date: 07/11/18 [...] 11:54 AM Dictated By: ANDREI LUTZ MD 115 Transcribed By: JIM on 07/11/18 1154 COPY TO: ELIESER DAWSON MD Bedside Lcoswlc8699-19-50 11:57:00* Test Item Value Reference Range Interpretation Comments Bedside Glucose (test code = 64807-7) 329 70-120 H M[facility] ID[id number]odium Level 2018-07-03 09:09:00* Test Item Value Reference Range Interpretation Comments Sodium Level (test code = 2951-2) 132 136-145 L [facility] CenterPotassium Fsthp7120-71-62 09:09:00* Test Item Value Reference Range Interpretation Comments Potassium Level (test code = 2823-3) 4.6 3.5-5.1 [facility] CenterChloride Btabl6560-85-37 09:09:00* Test Item Value Reference Range Interpretation Comments Chloride Level (test code = 2075-0) 95 98-107 L [facility] CenterCarbon Dioxide Xiqbu9464-48-27 09:09:00* Test Item Value Reference Range Interpretation Comments Carbon Dioxide Level (test code = 2028-9) 24 22-29 [facility] CenterAnion Xoo9679-26-52 09:09:00* Test Item Value Reference Range Interpretation Comments Anion Gap (test code = 93502-7) 17.6 8-16 H [facility] CenterBlood Urea Sevqagcw3448-53-41 09:09:00* Test Item Value Reference Range Interpretation Comments Blood Urea Nitrogen (test code = 3094-0) 52 7-26 H [facility] CenterCreatinine2018-12-11 09:09:00* Test Item Value Reference Range Interpretation Comments Creatinine (test code = 2160-0) 1.72 0.57-1.11 H [facility] CenterBUN/Creatinine Uedvq5737-91-34 09:09:00* Test Item Value Reference Range Interpretation Comments BUN/Creatinine Ratio (test code = 3097-3) 30 6-25 H [facility] CenterEstimat Glomerular Filtration Rate 2018-07-03 09:09:00* Test Item Value Reference Range Interpretation Comments Estimat Glomerular Filtration Rate (test code = 894703701) 30 >60 L Ranges were taken from the National Kidney Disease Education Program and the [facility] Hospitalal Kidney Foundation literature.Reference ranges:60 or greater: Eukcta39-98 ( for 3 consecutive months): Chronic kidney disease 15 or less: Kidney failureMemorial Hermann–[facility] Medical CenterGlucose Rzovf3090-20-68 09:09:00* Test Item Value Reference Range Interpretation Comments Glucose Level (test code = JMF6163) 218 74-118 H [facility] CenterCalcium Ttisr1064-14-74 09:09:00* Test Item Value Reference Range Interpretation Comments Calcium Level (test code = 07472-1) 9.1 8.4-10.2 [facility] CenterTotal Xlczyvgss8499-31-40 09:09:00* Test Item Value Reference Range Interpretation Comments Total Bilirubin (test code = 1975-2) 0.4 0.2-1.2 [facility] CenterAspartate Amino Transf (AST/SGOT) 2018-07-03 09:09:00* Test Item Value Reference Range Interpretation Comments Aspartate Amino Transf (AST/SGOT) (test code = Aspartate Amino Transf (AST/SGOT)) 9 5-34 [facility] CenterAlanine Aminotransferase (ALT/SGPT) 2018-07-03 09:09:00* Test Item Value Reference Range Interpretation Comments Alanine Aminotransferase (ALT/SGPT) (test code = 1742-6) 12 0-55 [facility] CenterTotal Aebxscy2313-57-77 09:09:00* Test Item Value Reference Range Interpretation Comments Total Protein (test code = 2885-2) 7.2 6.5-8.1 [facility] CenterAlbumin2018-12-11 09:09:00* Test Item Value Reference Range Interpretation Comments Albumin (test code = 1751-7) 3.4 3.5-5.0 L [facility] CenterGlobulin2018-12-11 09:09:00* Test Item Value Reference Range Interpretation Comments Globulin (test code = 16772-8) 3.8 2.3-3.5 H [facility] CenterAlbumin/Globulin Wpmig6472-91-83 09:09:00 * Test Item Value Reference Range Interpretation Comments Albumin/Globulin Ratio (test code = 1759-0) 0.9 0.8-2.0 [facility] CenterAlkaline Rkcagvhphpp8481-10-58 09:09:00* Test Item Value Reference Range Interpretation Comments Alkaline Phosphatase (test code = 6768-6) 59 40-150 [facility] CenterCHEST SINGLE (NOT PORTABLE)2018-07-01 13:32:00 [facility] [address] [place] [address] Patient Name: KALYANI TALAVERA MR #: [id number] : 1955 Age/Sex: 63/F Req #: [id number] Adm Physician: LUCILLE OLIVO MD Ordered by: BENJAMIN MASTERS MD Report #: [id number] Location: [facility] Room/Bed: [address] [address] Procedure: [id number] DX/CHEST SINGLE (NOT PORTABLE) Exam Date: 07/01/18 Exam Time: 1315 REPORT STATUS: Sign ed Examination: Single AP view of the chest. COMPARISON: June 27 8 INDICATION: Congestive heart failure DISCUSSION: Lines/tub es: [...] COPY TO: BENJAMIN MASTERS MD Hemoglobin A1c Gugfvmo5727-58-17 13:20:00* Test Item Value Reference Range Interpretation Comments Hemoglobin A1c Percent (test code = Hemoglobin A1c Percent) 8.4 4.0-7.0 H [facility] CenterHemoglobin A1c Avunhnm2998-10-33 13:20:00 * Test Item Value Reference Range Interpretation Comments Hemoglobin A1c Percent (test code = Hemoglobin A1c Percent) 8.4 4.0-7.0 H [facility] CenterHemoglobin A1c Nmavyzj6311-52-93 13:20:00 * Test Item Value Reference Range Interpretation Comments Hemoglobin A1c Percent (test code = Hemoglobin A1c Percent) 8.4 4.0-7.0 H [facility] CenterHemoglobin A1c Smguzrl3292-15-42 13:20:00 * Test Item Value Reference Range Interpretation Comments Hemoglobin A1c Percent (test code = Hemoglobin A1c Percent) 8.4 4.0-7.0 H [facility] CenterVQ LUNG SCAN VENT GLRBFASOM7980-00-62 16:24:00 [facility] [address] [place] [address] Patient Name: KALYANI TALAVERA MR #: [id number] : 1955 Age/Sex: 63/F Req #: [id number] Adm Physician: LUCILLE OLIVO MD Ordered by: JACINDA BUSTILLOS MD Report #: [id number] Location: [facility] Room/Bed: [address] [address] Procedure: [id number] N M/VQ LUNG SCAN VENT PERFUSION Exam [...] COPY TO: JACINDA VILLAGOMEZ MD Creatine Kinase GO3013-30-86 08:14:00* Test Item Value Reference Range Interpretation Comments Creatine Kinase MB (test code = 33366-6) 1.50 0-5.0 [facility] CenterTroponin N9672-80-90 08:14:00* Test Item Value Reference Range Interpretation Comments Troponin I (test code = IBV2324) < 0.001 0-0.300 [facility] CenterCreatine Xeztnm9709-40-08 08:07:00* Test Item Value Reference Range Interpretation Comments Creatine Kinase (test code = 2157-6) 61 29-168 [facility] CenterB-Type Natriuretic Eqhqgil0174-31-09 07:10:00* Test Item Value Reference Range Interpretation Comments B-Type Natriuretic Peptide (test code = 49003-9) < 10.0 0-100 [facility] CenterWhite Blood Luqzr1696-33-57 05:51:00* Test Item Value Reference Range Interpretation Comments White Blood Count (test code = 6690-2) 6.29 4.8-10.8 [facility] CenterRed Blood Thdiy7948-08-66 05:51:00* Test Item Value Reference Range Interpretation Comments Red Blood Count (test code = 789-8) 4.36 3.6-5.1 [facility] CenterHemoglobin2018-12-06 05:51:00* Test Item Value Reference Range Interpretation Comments Hemoglobin (test code = 77837-7) 11.1 12.0-16.0 L [facility] CenterHematocrit2018-12-06 05:51:00* Test Item Value Reference Range Interpretation Comments Hematocrit (test code = 4544-3) 37.1 34.2-44.1 [facility] CenterMean Corpuscular Gpbdee7652-21-61 05:51:00* Test Item Value Reference Range Interpretation Comments Mean Corpuscular Volume (test code = 787-2) 85.1 81-99 [facility] CenterMean Corpuscular Qzhodynnnu2324-32-71 05:51:00* Test Item Value Reference Range Interpretation Comments Mean Corpuscular Hemoglobin (test code = 785-6) 25.5 28-32 L [facility] CenterMean Corpuscular Hemoglobin Concent 2018-06-28 05:51:00* Test Item Value Reference Range Interpretation Comments Mean Corpuscular Hemoglobin Concent (test code = 786-4) 29.9 31-35 L [facility] CenterRed Cell Distribution Ybcnt2765-58-81 05:51:00* Test Item Value Reference Range Interpretation Comments Red Cell Distribution Width (test code = 68326-5) 15.7 11.7 -14.4 H [facility] CenterPlatelet Ulcoh8002-39-14 05:51:00* Test Item Value Reference Range Interpretation Comments Platelet Count (test code = 777-3) 162 140-360 [facility] CenterNeutrophils (%) (Auto)2018-06-28 05:51:00 * Test Item Value Reference Range Interpretation Comments Neutrophils (%) (Auto) (test code = 02698-5) 75.4 38.7-80.0 [facility] CenterLymphocytes (%) (Auto)2018-06-28 05:51:00 * Test Item Value Reference Range Interpretation Comments Lymphocytes (%) (Auto) (test code = 736-9) 13.0 18.0-39.1 L [facility] CenterMonocytes (%) (Auto)2018-06-28 05:51:00* Test Item Value Reference Range Interpretation Comments Monocytes (%) (Auto) (test code = 5905-5) 7.3 4.4-11.3 [facility] CenterEosinophils (%) (Auto)2018-06-28 05:51:00 * Test Item Value Reference Range Interpretation Comments Eosinophils (%) (Auto) (test code = 713-8) 2.7 0.0-6.0 [facility] CenterBasophils (%) (Auto)2018-06-28 05:51:00* Test Item Value Reference Range Interpretation Comments Basophils (%) (Auto) (test code = 706-2) 1.0 0.0-1.0 [facility] CenterIM GRANULOCYTES %2018-06-28 05:51:00* Test Item Value Reference Range Interpretation Comments IM GRANULOCYTES % (test code = IM GRANULOCYTES %) 0.6 0.0- 1.0 [facility] CenterNeutrophils # (Auto)2018-06-28 05:51:00* Test Item Value Reference Range Interpretation Comments Neutrophils # (Auto) (test code = 751-8) 4.7 2.1-6.9 [facility] CenterLymphocytes # (Auto)2018-06-28 05:51:00* Test Item Value Reference Range Interpretation Comments Lymphocytes # (Auto) (test code = 06132-2) 0.8 1.0-3.2 L [facility] CenterMonocytes # (Auto)2018-06-28 05:51:00* Test Item Value Reference Range Interpretation Comments Monocytes # (Auto) (test code = 742-7) 0.5 0.2-0.8 [facility] CenterEosinophils # (Auto)2018-06-28 05:51:00* Test Item Value Reference Range Interpretation Comments Eosinophils # (Auto) (test code = 711-2) 0.2 0.0-0.4 [facility] CenterBasophils # (Auto)2018-06-28 05:51:00* Test Item Value Reference Range Interpretation Comments Basophils # (Auto) (test code = 704-7) 0.1 0.0-0.1 [facility] CenterAbsolute Immature Granulocyte (auto 2018-06-28 05:51:00* Test Item Value Reference Range Interpretation Comments Absolute Immature Granulocyte (auto (joseph t code = Absolute Immature Granulocyte (auto) 0.04 0-0.1 [facility] CenterCHEST 2 LJLBP0531-26-14 04:37:00 [place] [address] Patient Name: KALYANI TALAVERA MR #: [id number] : 1955 Age/Sex: 63/F Req #: [id number] Adm Physician: Ordered by: JACQUES JANE MD Report #: [id number] Location: ER Room/Bed: Procedure: 1205- 0011 DX/CHEST [...] on 06/27/18439 COPY TO: JACQUES HOOD MD EARNOXI7931-82-70 13:15:00 RUN DATE: 06/21/18 [employer] [facility] PAGE 1 RUN TIME: 1316 Specimen Inqui ry RUN USER: INTERFACE PATIENT: KALYANI TALAVERA ACCT #: [id number] LOC: [facility] U #: [id number] AGE/SX: 63/F ROOM: RE06/19/18REG DR: Kb Bradford MD : 57 BED: DIS: [place] [facility] [place] SPEC #: [id number] RECD: 06/20/18 STATUS: SHREYA BROWN #: [id number] MARILEE: 06/19/18 DR: Kb Bradford MD ENTERED: 06/20/18 SP TYPE: STOMACH OTHR DR: Lucille Torres MDORDERED: GROSS COPIES TO: Lucille Nur MD [address] [facility] [address] [place] [address] Kb Bradford Si, MD [address] 1958 [address] [address] PROCEDURES: GROSS ( 06/21/18-124) TISSUES: ANTRAL BIOPSY - H-PYLORI CLINICAL HIST ORY COLLECTION DATE: 06/19/18 DYSPHAGIA, HEARTBURN POST-OP DIAGNOSIS: HIATAL HERNIA, GASTRITIS FINAL DIAGNOSIS Stomach, antrum, biopsy: REACTIVE GASTROPATHY CONTROLLED GIEMSA STAIN NEGATIVE FOR HELICOBAC TER ORGANISMS NEGATIVE FOR MALIGNANCY MARYAM/sm D 7[address], [address] MACROSCOPIC The specimen is received in formalin, labeled with the lis ent's name, identified as "antrum bx", and consists of two gutierrez biopsy tissue m easuring 0.3 cm each, submitted for H E and Giemsa stains. GROSS PERFORM ED AT [facility] CONTINUED ON NEXT PAG E RUN DATE: 06/21/18 [facility] PAGE 2 RUN TIME: 1316 Specimen Inquiry RUN USER: INTERFACE SPEC #: [id number] PATIENT: KHANH TALAVERA #[id number] (Continued) MACROSCO PIC (Continued) [facility] [address] [place] [address] (p)[phone] MICROSCOPIC MICROSCOPIC PERFOR MED AT [facility] All of the stains, including any controls perfor med, stain appropriately. [facility] [address] [place] [address] (p)[phone] PERFORMING SITE Diagnosis performed at: [facility] [address] [place] [address] Signed SIGNATURE ON Stacey Koneig 06/21/18 1315 END OF REPORT B-Type Natriuretic Oermpnh3078-74-50 03:14:00* Test Item Value Reference Range Interpretation Comments B-Type Natriuretic Peptide (test code = 94139-2) 10.5 0-100 [facility] CenterCreatine Kinase BF8030-74-96 03:14:00* Test Item Value Reference Range Interpretation Comments Creatine Kinase MB (test code = 19894-5) 1.30 0-5.0 [facility] CenterTroponin W6885-88-88 03:14:00* Test Item Value Reference Range Interpretation Comments Troponin I (test code = XGQ4578) -0.001 0-0.300 [facility] CenterBedside Lhiimrf2226-56-83 03:04:00* Test Item Value Reference Range Interpretation Comments Bedside Glucose (test code = 43678-6) 291 70-120 H Meter ID: [id number] [facility] Tylerodium Level 2018-04-03 02:45:00* Test Item Value Reference Range Interpretation Comments Sodium Level (test code = 2951-2) 140 136-145 [facility] CenterPotassium Hjdix9971-38-59 02:45:00* Test Item Value Reference Range Interpretation Comments Potassium Level (test code = 2823-3) 3.8 3.5-5.1 [facility] CenterChloride Sryay0372-39-12 02:45:00* Test Item Value Reference Range Interpretation Comments Chloride Level (test code = 2075-0) 100 98-107 [facility] CenterCarbon Dioxide Ilrkj2219-03-07 02:45:00* Test Item Value Reference Range Interpretation Comments Carbon Dioxide Level (test code = 2028-9) 29 22-29 [facility] CenterAnion Uli9322-02-29 02:45:00* Test Item Value Reference Range Interpretation Comments Anion Gap (test code = 48947-8) 14.8 8-16 [facility] CenterBlood Urea Qnhacgth0573-65-47 02:45:00* Test Item Value Reference Range Interpretation Comments Blood Urea Nitrogen (test code = 3094-0) 49 7-26 H [facility] CenterCreatinine2018-09-11 02:45:00* Test Item Value Reference Range Interpretation Comments Creatinine (test code = 2160-0) 1.93 0.57-1.11 H [facility] CenterBUN/Creatinine Txfsg5500-97-75 02:45:00* Test Item Value Reference Range Interpretation Comments BUN/Creatinine Ratio (test code = 3097-3) 25 6-25 [facility] CenterEstimat Glomerular Filtration Rate 2018-04-03 02:45:00* Test Item Value Reference Range Interpretation Comments Estimat Glomerular Filtration Rate (test code = 71783-8) 26 >60 L Ranges were taken from the National Kidney Disease Education Program and the Jenise unc healthal [employer] literature.Reference ranges:60 or greater: Wsrqgl01-94 ( for 3 consecutive months): Chronic kidney disease 15 or less: Kidney failureMemorial Hermann–Texas Medical CenterGlucose Ppsne7365-92-64 02:45:00* Test Item Value Reference Range Interpretation Comments Glucose Level (test code = OME3767) 58 74-118 LL Results called to LU HARMON RN at 0244 on 04/03/18 by Francoise Proctor. RB [place]. [facility] CenterCalcium Aohrw4412-54-34 02:45:00* Test Item Value Reference Range Interpretation Comments Calcium Level (test code = 62254-9) 9.3 8.4-10.2 [facility] CenterTotal Mpmefcrmv2128-34-53 02:45:00* Test Item Value Reference Range Interpretation Comments Total Bilirubin (test code = 1975-2) 0.2 0.2-1.2 [facility] CenterAspartate Amino Transf (AST/SGOT) 2018-04-03 02:45:00* Test Item Value Reference Range Interpretation Comments Aspartate Amino Transf (AST/SGOT) (test code = Aspartate Amino Transf (AST/SGOT)) 18 5-34 [facility] CenterAlanine Aminotransferase (ALT/SGPT) 2018-04-03 02:45:00* Test Item Value Reference Range Interpretation Comments Alanine Aminotransferase (ALT/SGPT) (test code = 1742-6) 18 0-55 [facility] CenterTotal Iktffyl6714-99-16 02:45:00* Test Item Value Reference Range Interpretation Comments Total Protein (test code = 2885-2) 7.3 6.5-8.1 [facility] CenterAlbumin2018-09-11 02:45:00* Test Item Value Reference Range Interpretation Comments Albumin (test code = 1751-7) 3.5 3.5-5.0 [facility] CenterGlobulin2018-09-11 02:45:00* Test Item Value Reference Range Interpretation Comments Globulin (test code = 70179-2) 3.8 2.3-3.5 H [facility] CenterAlbumin/Globulin Nfjly7868-70-49 02:45:00 * Test Item Value Reference Range Interpretation Comments Albumin/Globulin Ratio (test code = 1759-0) 0.9 0.8-2.0 [facility] CenterAlkaline Mcfuvhewlxz7319-69-75 02:45:00* Test Item Value Reference Range Interpretation Comments Alkaline Phosphatase (test code = 6768-6) 56 40-150 [facility] CenterCreatine Idsadg4578-59-45 02:45:00* Test Item Value Reference Range Interpretation Comments Creatine Kinase (test code = 2157-6) 54 29-168 [facility] CenterUrine Pftmu8141-44-19 02:37:00* Test Item Value Reference Range Interpretation Comments Urine Color (test code = 5778-6) COLORLESS YELLOW [facility] CenterUrine Bxbppia0780-64-95 02:37:00* Test Item Value Reference Range Interpretation Comments Urine Clarity (test code = 09654-7) CLEAR CLEAR [facility] CenterUrine Specific Efzwhks0699-57-55 02:37:00 * Test Item Value Reference Range Interpretation Comments Urine Specific [place] (test code = 5811-5) 1.005 1.010-1.02 5 L [facility] CenterUrine uS0002-18-43 02:37:00* Test Item Value Reference Range Interpretation Comments Urine pH (test code = 40603-5) 7 5-7 [facility] CenterUrine Leukocyte Tnapkkmr1219-02-74 02:37:00* Test Item Value Reference Range Interpretation Comments Urine Leukocyte Esterase (test code = 5799-2) NEGATIVE NEGATIVE [facility] CenterUrine Azvgqxb2858-33-02 02:37:00* Test Item Value Reference Range Interpretation Comments Urine Nitrite (test code = 40418-0) NEGATIVE NEGATIVE [facility] CenterUrine Dchonrt7228-50-46 02:37:00* Test Item Value Reference Range Interpretation Comments Urine Protein (test code = 5804-0) NEGATIVE NEGATIVE [facility] Glucose (UA)2018-04-03 02:37:00* Test Item Value Reference Range Interpretation Comments Urine Glucose (UA) (test code = 2349-9) NEGATIVE NEGATIVE [facility] Weyaccd6538-60-17 02:37:00* Test Item Value Reference Range Interpretation Comments Urine Ketones (test code = 78015-8) NEGATIVE NEGATIVE [facility] Noptsoqphszr0906-91-77 02:37:00* Test Item Value Reference Range Interpretation Comments Urine Urobilinogen (test code = 22591-6) 0.2 0.2-1 [facility] Ymhiliguz9198-70-22 02:37:00* Test Item Value Reference Range Interpretation Comments Urine Bilirubin (test code = 1978-6) NEGATIVE NEGATIVE [facility] CenterUrine Vbrbn4016-24-51 02:37:00* Test Item Value Reference Range Interpretation Comments Urine Blood (test code = 10549-6) TRACE NEGATIVE H [facility] CenterUrine VHD3127-68-88 02:37:00* Test Item Value Reference Range Interpretation Comments Urine WBC (test code = 5821-4) 0-5 0-5 [facility] CenterUrine UKQ7609-63-07 02:37:00* Test Item Value Reference Range Interpretation Comments Urine RBC (test code = 73372-6) 0-5 0-5 [facility] CenterUrine Qtnnqwtz9140-31-46 02:37:00* Test Item Value Reference Range Interpretation Comments Urine Bacteria (test code = 75637-3) RARE NONE [facility] CenterUrine Epithelial Pgnkc3398-29-59 02:37:00 * Test Item Value Reference Range Interpretation Comments Urine Epithelial Cells (test code = 46943-8) FEW NONE [facility] Sialv0317-04-26 02:37:00* Test Item Value Reference Range Interpretation Comments Urine Color (test code = 5778-6) COLORLESS YELLOW [facility] CenterUrine Yftrfxm5025-23-13 02:37:00* Test Item Value Reference Range Interpretation Comments Urine Clarity (test code = 07339-9) CLEAR CLEAR [facility] Specific Oqcqxag4015-65-64 02:37:00 * Test Item Value Reference Range Interpretation Comments Urine Specific [place] (test code = 5811-5) 1.005 1.010-1.02 5 L [facility] CenterUrine wV0806-82-61 02:37:00* Test Item Value Reference Range Interpretation Comments Urine pH (test code = 95314-6) 7 5-7 [facility] CenterUrine Leukocyte Dpsgdbra4586-67-05 02:37:00* Test Item Value Reference Range Interpretation Comments Urine Leukocyte Esterase (test code = 5799-2) NEGATIVE NEGATIVE [facility] Ilmltgk3765-14-00 02:37:00* Test Item Value Reference Range Interpretation Comments Urine Nitrite (test code = 92794-0) NEGATIVE NEGATIVE [facility] CenterUrine Xjqtegs0193-05-07 02:37:00* Test Item Value Reference Range Interpretation Comments Urine Protein (test code = 5804-0) NEGATIVE NEGATIVE [facility] Glucose (UA)2018-04-03 02:37:00* Test Item Value Reference Range Interpretation Comments Urine Glucose (UA) (test code = 2349-9) NEGATIVE NEGATIVE [facility] Vqpvhtx9855-22-90 02:37:00* Test Item Value Reference Range Interpretation Comments Urine Ketones (test code = 81595-2) NEGATIVE NEGATIVE [facility] CenterUrine Nkqexiouyokw0136-37-88 02:37:00* Test Item Value Reference Range Interpretation Comments Urine Urobilinogen (test code = 76195-1) 0.2 0.2-1 [facility] CenterUrine Biltbrlxb6536-54-83 02:37:00* Test Item Value Reference Range Interpretation Comments Urine Bilirubin (test code = 1978-6) NEGATIVE NEGATIVE [facility] CenterUrine Yqmli3105-17-79 02:37:00* Test Item Value Reference Range Interpretation Comments Urine Blood (test code = 58359-2) TRACE NEGATIVE H [facility] CenterUrine ISP3504-38-10 02:37:00* Test Item Value Reference Range Interpretation Comments Urine WBC (test code = 5821-4) 0-5 0-5 [facility] CenterUrine JWD0978-70-13 02:37:00* Test Item Value Reference Range Interpretation Comments Urine RBC (test code = 15585-8) 0-5 0-5 [facility] CenterUrine Nptojgva1789-47-68 02:37:00* Test Item Value Reference Range Interpretation Comments Urine Bacteria (test code = 14630-8) RARE NONE [facility] CenterUrine Epithelial Rzfvh4247-22-21 02:37:00 * Test Item Value Reference Range Interpretation Comments Urine Epithelial Cells (test code = 33096-5) FEW NONE [facility] CenterUrine Wsqde2330-15-75 02:37:00* Test Item Value Reference Range Interpretation Comments Urine Color (test code = 5778-6) COLORLESS YELLOW [facility] CenterUrine Zdbwcgf9778-29-58 02:37:00* Test Item Value Reference Range Interpretation Comments Urine Clarity (test code = 36417-7) CLEAR CLEAR [facility] CenterUrine Specific Reoxkro5194-47-48 02:37:00 * Test Item Value Reference Range Interpretation Comments Urine Specific [place] (test code = 5811-5) 1.005 1.010-1.02 5 L [facility] CenterUrine hA7346-78-11 02:37:00* Test Item Value Reference Range Interpretation Comments Urine pH (test code = 99707-6) 7 5-7 [facility] CenterUrine Leukocyte Xemvcgxm9138-73-17 02:37:00* Test Item Value Reference Range Interpretation Comments Urine Leukocyte Esterase (test code = 5799-2) NEGATIVE NEGATIVE [facility] CenterUrine Vyammxw2939-41-60 02:37:00* Test Item Value Reference Range Interpretation Comments Urine Nitrite (test code = 55947-6) NEGATIVE NEGATIVE [facility] CenterUrine Bydibfg5357-85-60 02:37:00* Test Item Value Reference Range Interpretation Comments Urine Protein (test code = 5804-0) NEGATIVE NEGATIVE [facility] CenterUrine Glucose (UA)2018-04-03 02:37:00* Test Item Value Reference Range Interpretation Comments Urine Glucose (UA) (test code = 2349-9) NEGATIVE NEGATIVE [facility] CenterUrine Lxteaap9793-90-54 02:37:00* Test Item Value Reference Range Interpretation Comments Urine Ketones (test code = 26454-8) NEGATIVE NEGATIVE [facility] Etpqbniqlthv3834-60-30 02:37:00* Test Item Value Reference Range Interpretation Comments Urine Urobilinogen (test code = 45004-1) 0.2 0.2-1 [facility] Jurigthxa6036-55-08 02:37:00* Test Item Value Reference Range Interpretation Comments Urine Bilirubin (test code = 1978-6) NEGATIVE NEGATIVE [facility] CenterU[facility] Fwjok0209-60-57 02:37:00* Test Item Value Reference Range Interpretation Comments Urine Blood (test code = 89410-9) TRACE NEGATIVE H [facility] CenterUrine QRZ5590-05-91 02:37:00* Test Item Value Reference Range Interpretation Comments Urine WBC (test code = 5821-4) 0-5 0-5 [facility] CenterU[facility] LDZ0343-78-75 02:37:00* Test Item Value Reference Range Interpretation Comments Urine RBC (test code = 56262-6) 0-5 0-5 [facility] Txgwjscs5299-89-02 02:37:00* Test Item Value Reference Range Interpretation Comments Urine Bacteria (test code = 27888-1) RARE NONE [facility] CenterUrine Epithelial Obxdc3938-04-35 02:37:00 * Test Item Value Reference Range Interpretation Comments Urine Epithelial Cells (test code = 59468-4) FEW NONE [facility] CenterUrine Kuyrg9340-89-25 02:37:00* Test Item Value Reference Range Interpretation Comments Urine Color (test code = 5778-6) COLORLESS YELLOW [facility] CenterUrine Nfgshsl0251-39-49 02:37:00* Test Item Value Reference Range Interpretation Comments Urine Clarity (test code = 22838-8) CLEAR CLEAR [facility] Specific Ggvohzv9069-86-84 02:37:00 * Test Item Value Reference Range Interpretation Comments Urine Specific [place] (test code = 5811-5) 1.005 1.010-1.02 5 L [facility] CenterUrine mX8340-36-58 02:37:00* Test Item Value Reference Range Interpretation Comments Urine pH (test code = 54217-5) 7 5-7 [facility] CenterU[facility] Leukocyte Gomcjblj1792-68-65 02:37:00* Test Item Value Reference Range Interpretation Comments Urine Leukocyte Esterase (test code = 5799-2) NEGATIVE NEGATIVE [facility] Lxbyjyu8839-65-60 02:37:00* Test Item Value Reference Range Interpretation Comments Urine Nitrite (test code = 47814-5) NEGATIVE NEGATIVE [facility] CenterU[facility] Btmtbze6527-74-22 02:37:00* Test Item Value Reference Range Interpretation Comments Urine Protein (test code = 5804-0) NEGATIVE NEGATIVE [facility] CenterUrine Glucose (UA)2018-04-03 02:37:00* Test Item Value Reference Range Interpretation Comments Urine Glucose (UA) (test code = 2349-9) NEGATIVE NEGATIVE [facility] CenterUrine Nfmkfbt1294-61-64 02:37:00* Test Item Value Reference Range Interpretation Comments Urine Ketones (test code = 30205-2) NEGATIVE NEGATIVE [facility] Xsmcarkqlseh4960-50-01 02:37:00* Test Item Value Reference Range Interpretation Comments Urine Urobilinogen (test code = 00432-0) 0.2 0.2-1 [facility] CenterU[facility] Ynvmwdvln1174-82-79 02:37:00* Test Item Value Reference Range Interpretation Comments Urine Bilirubin (test code = 1978-6) NEGATIVE NEGATIVE [facility] CenterUrine Bowgo4932-78-93 02:37:00* Test Item Value Reference Range Interpretation Comments Urine Blood (test code = 48244-8) TRACE NEGATIVE H [facility] CenterUrine OGY9552-78-42 02:37:00* Test Item Value Reference Range Interpretation Comments Urine WBC (test code = 5821-4) 0-5 0-5 [facility] CenterU[facility] NQG1778-36-49 02:37:00* Test Item Value Reference Range Interpretation Comments Urine RBC (test code = 22452-9) 0-5 0-5 [facility] CenterUrine Oeinqdry0564-96-96 02:37:00* Test Item Value Reference Range Interpretation Comments Urine Bacteria (test code = 63242-5) RARE NONE [facility] CenterUrine Epithelial Ddoev4360-08-12 02:37:00 * Test Item Value Reference Range Interpretation Comments Urine Epithelial Cells (test code = 76745-9) FEW NONE [facility] CenterWhite Blood Vtugs9645-11-05 02:30:00* Test Item Value Reference Range Interpretation Comments White Blood Count (test code = 6690-2) 6.05 4.8-10.8 [facility] CenterRed Blood Wgtww6453-13-73 02:30:00* Test Item Value Reference Range Interpretation Comments Red Blood Count (test code = 789-8) 4.43 3.6-5.1 [facility] CenterHemoglobin2018-09-11 02:30:00* Test Item Value Reference Range Interpretation Comments Hemoglobin (test code = 55101-1) 11.5 12.0-16.0 L [facility] CenterHematocrit2018-09-11 02:30:00* Test Item Value Reference Range Interpretation Comments Hematocrit (test code = 4544-3) 38.3 34.2-44.1 [facility] CenterMean Corpuscular Deettx0402-37-83 02:30:00* Test Item Value Reference Range Interpretation Comments Mean Corpuscular Volume (test code = 787-2) 86.5 81-99 [facility] CenterMean Corpuscular Zevxrvaowz1425-95-05 02:30:00* Test Item Value Reference Range Interpretation Comments Mean Corpuscular Hemoglobin (test code = 785-6) 26.0 28-32 L [facility] CenterMean Corpuscular Hemoglobin Concent 2018-04-03 02:30:00* Test Item Value Reference Range Interpretation Comments Mean Corpuscular Hemoglobin Concent (test code = 786-4) 30.0 31-35 L [facility] CenterRed Cell Distribution Vmssx8858-27-67 02:30:00* Test Item Value Reference Range Interpretation Comments Red Cell Distribution Width (test code = 29813-3) 15.9 11.7 -14.4 H [facility] CenterPlatelet Zjafh5255-99-43 02:30:00* Test Item Value Reference Range Interpretation Comments Platelet Count (test code = 777-3) 175 140-360 [facility] CenterNeutrophils (%) (Auto)2018-04-03 02:30:00 * Test Item Value Reference Range Interpretation Comments Neutrophils (%) (Auto) (test code = 22678-4) 69.7 38.7-80.0 [facility] CenterLymphocytes (%) (Auto)2018-04-03 02:30:00 * Test Item Value Reference Range Interpretation Comments Lymphocytes (%) (Auto) (test code = 736-9) 18.5 18.0-39.1 [facility] CenterMonocytes (%) (Auto)2018-04-03 02:30:00* Test Item Value Reference Range Interpretation Comments Monocytes (%) (Auto) (test code = 5905-5) 6.8 4.4-11.3 [facility] CenterEosinophils (%) (Auto)2018-04-03 02:30:00 * Test Item Value Reference Range Interpretation Comments Eosinophils (%) (Auto) (test code = 713-8) 3.3 0.0-6.0 [facility] CenterBasophils (%) (Auto)2018-04-03 02:30:00* Test Item Value Reference Range Interpretation Comments Basophils (%) (Auto) (test code = 706-2) 1.0 0.0-1.0 [facility] CenterIM [facility]ANULOCYTES %2018-04-03 02:30:00* Test Item Value Reference Range Interpretation Comments IM GRANULOCYTES % (test code = IM GRANULOCYTES %) 0.7 0.0- 1.0 [facility] CenterNeutrophils # (Auto)2018-04-03 02:30:00* Test Item Value Reference Range Interpretation Comments Neutrophils # (Auto) (test code = 751-8) 4.2 2.1-6.9 [facility] CenterLymphocytes # (Auto)2018-04-03 02:30:00* Test Item Value Reference Range Interpretation Comments Lymphocytes # (Auto) (test code = 53307-5) 1.1 1.0-3.2 [facility] CenterMonocytes # (Auto)2018-04-03 02:30:00* Test Item Value Reference Range Interpretation Comments Monocytes # (Auto) (test code = 742-7) 0.4 0.2-0.8 [facility] CenterEosinophils # (Auto)2018-04-03 02:30:00* Test Item Value Reference Range Interpretation Comments Eosinophils # (Auto) (test code = 711-2) 0.2 0.0-0.4 [facility] CenterBasophils # (Auto)2018-04-03 02:30:00* Test Item Value Reference Range Interpretation Comments Basophils # (Auto) (test code = 704-7) 0.1 0.0-0.1 [facility] CenterAbsolute Immature Granulocyte (auto 2018-04-03 02:30:00* Test Item Value Reference Range Interpretation Comments Absolute Immature Granulocyte (auto (joseph t code = Absolute Immature Granulocyte (auto) 0.04 0-0.1 [facility] CenterCHEST SINGLE (PORTABLE)2018-04-03 02:16:00 [facility] [address] [address] Patient Name: KALYANI TALAVERA MR #: [id number] : 1955 Age/Sex: 63/F Req #: [id number] Adm Physician: Ordered by: ROBERT OLIVIA MD Report #: [id number] Location: ER Room/Bed: Procedure: [id number] DX/CHEST SINGLE (PORTABLE) Ex am Date: Exam [...] 04/03/18216 COPY TO: ROBERT OLIVIA MD Bedside Ojaiqfn7555-08-74 11:36:00* Test Item Value Reference Range Interpretation Comments Bedside Glucose (test code = 44883-6) 348 70-120 H Meter ID: [id number] [facility] CenterCreatine Kinase MB 2018-02-05 06:30:00* Test Item Value Reference Range Interpretation Comments Creatine Kinase MB (test code = 89035-7) 1.40 0-5.0 [facility] CenterTroponin N2545-42-81 06:30:00* Test Item Value Reference Range Interpretation Comments Troponin I (test code = FKD2771) 0.007 0-0.300 [facility] CenterCreatine Dlwbkh4768-23-64 06:23:00* Test Item Value Reference Range Interpretation Comments Creatine Kinase (test code = 2157-6) 53 29-168 [facility] CenterTriglycerides Lajui0990-29-26 06:10:00* Test Item Value Reference Range Interpretation Comments Triglycerides Level (test code = 2571-8) 159 0-149 H [facility] CenterCholesterol Grpew9707-76-80 06:10:00* Test Item Value Reference Range Interpretation Comments Cholesterol Level (test code = 2093-3) 180 0-199 Less than 200 mg/dL Low Pjvn348 - 239 mg/dL Borderline Lavn370 m g/dl and greater High Risk [facility] CenterLDL Ccfraortuvq2208-31-11 06:10:00* Test Item Value Reference Range Interpretation Comments LDL Cholesterol (test code = 2089-1) 118 60-130 [facility] CenterHDL Mylntfsmwyi2631-39-80 06:10:00* Test Item Value Reference Range Interpretation Comments HDL Cholesterol (test code = 2085-9) 30 40-60 L [facility] CenterCholesterol/HDL Tqjpd0858-06-71 06:10:00 * Test Item Value Reference Range Interpretation Comments Cholesterol/HDL Ratio (test code = 9830-1) 6.0 3.0-3.6 H [facility] CenterTriglycerides Qtxit0662-57-59 06:10:00* Test Item Value Reference Range Interpretation Comments Triglycerides Level (test code = 2571-8) 159 0-149 H [facility] CenterCholesterol Krbpk5001-24-51 06:10:00* Test Item Value Reference Range Interpretation Comments Cholesterol Level (test code = 2093-3) 180 0-199 Less than 200 mg/dL Low Wmsy040 - 239 mg/dL Borderline Qqdw043 m g/dl and greater High Risk [facility] CenterLDL Dvajccqijlb4315-66-46 06:10:00* Test Item Value Reference Range Interpretation Comments LDL Cholesterol (test code = 2089-1) 118 60-130 [facility] Wlncwfljrpb4359-40-90 06:10:00* Test Item Value Reference Range Interpretation Comments HDL Cholesterol (test code = 2085-9) 30 40-60 L [facility] CenterCholesterol/HDL Lfkhv0839-57-12 06:10:00 * Test Item Value Reference Range Interpretation Comments Cholesterol/HDL Ratio (test code = 9830-1) 6.0 3.0-3.6 H [facility] CenterTriglycerides Tsusm8601-85-06 06:10:00* Test Item Value Reference Range Interpretation Comments Triglycerides Level (test code = 2571-8) 159 0-149 H [facility] CenterCholesterol Mcvpm0699-09-38 06:10:00* Test Item Value Reference Range Interpretation Comments Cholesterol Level (test code = 2093-3) 180 0-199 Less than 200 mg/dL Low Zwoq492 - 239 mg/dL Borderline Bxoe151 m g/dl and greater High Risk [facility] CenterLDL Ycwdvgnusbs5312-06-26 06:10:00* Test Item Value Reference Range Interpretation Comments LDL Cholesterol (test code = 2089-1) 118 60-130 [facility] Zrmlupsknfc8490-08-49 06:10:00* Test Item Value Reference Range Interpretation Comments HDL Cholesterol (test code = 2085-9) 30 40-60 L [facility] CenterCholesterol/HDL Ywbrd8098-71-87 06:10:00 * Test Item Value Reference Range Interpretation Comments Cholesterol/HDL Ratio (test code = 9830-1) 6.0 3.0-3.6 H [facility] CenterTriglycerides Jpupq9848-01-04 06:10:00* Test Item Value Reference Range Interpretation Comments Triglycerides Level (test code = 2571-8) 159 0-149 H [facility] CenterCholesterol Hlvzs9176-21-43 06:10:00* Test Item Value Reference Range Interpretation Comments Cholesterol Level (test code = 2093-3) 180 0-199 Less than 200 mg/dL Low Kmto519 - 239 mg/dL Borderline Owdc202 m g/dl and greater High Risk [facility] CenterLDL Zbphhgomlcl8308-35-25 06:10:00* Test Item Value Reference Range Interpretation Comments LDL Cholesterol (test code = 2089-1) 118 60-[address] [facility] Namqaidlqmi0278-38-15 06:10:00* Test Item Value Reference Range Interpretation Comments HDL Cholesterol (test code = 2085-9) 30 40-60 L [facility] CenterCholesterol/HDL Wvmru3618-23-15 06:10:00 * Test Item Value Reference Range Interpretation Comments Cholesterol/HDL Ratio (test code = 9830-1) 6.0 3.0-3.6 H [facility] CenterTriglycerides Rvbdi1192-89-49 06:10:00* Test Item Value Reference Range Interpretation Comments Triglycerides Level (test code = 2571-8) 159 0-149 H [facility] CenterCholesterol Gqith5810-95-96 06:10:00* Test Item Value Reference Range Interpretation Comments Cholesterol Level (test code = 2093-3) 180 0-199 Less than 200 mg/dL Low Dvuz450 - 239 mg/dL Borderline Enhh827 m g/dl and greater High Risk [facility] CenterLDL Dfwvpscprmc1337-17-08 06:10:00* Test Item Value Reference Range Interpretation Comments LDL Cholesterol (test code = 2089-1) 118 60-130 [facility] Poqmjnfzptb0415-01-04 06:10:00* Test Item Value Reference Range Interpretation Comments HDL Cholesterol (test code = 2085-9) 30 40-60 L [facility] CenterCholesterol/HDL Dydfh0033-58-95 06:10:00 * Test Item Value Reference Range Interpretation Comments Cholesterol/HDL Ratio (test code = 9830-1) 6.0 3.0-3.6 H [facility] SINGLE (PORTABLE)2018-02-04 11:35:00 [facility] [address] [address] Patient Name: KALYANI TALAVERA MR #: [id number] : 1955 Age/Sex: 62/F Req #: [id number] Adm Physician: Ordered by: ROBERT OLIVIA MD Report #: [id number] Location: ER Room/Bed: Procedure: [id number] DX/CHEST SINGLE (PORTABLE) Ex am Date: 02/04/18 [...] COPY TO: ROBERT OLIVIA MD White Blood Vzrbm8334-81-72 11:19:00* Test Item Value Reference Range Interpretation Comments White Blood Count (test code = 6690-2) 6.94 4.8-10.8 [facility] CenterRed Blood Nqjpt2799-16-04 11:19:00* Test Item Value Reference Range Interpretation Comments Red Blood Count (test code = 789-8) 4.49 3.6-5.1 [facility] CenterHemoglobin2018-07-15 11:19:00* Test Item Value Reference Range Interpretation Comments Hemoglobin (test code = 09744-8) 11.3 12.0-16.0 L [facility] CenterHematocrit2018-07-15 11:19:00* Test Item Value Reference Range Interpretation Comments Hematocrit (test code = 4544-3) 37.6 34.2-44.1 [facility] CenterMean Corpuscular Aipwhn0517-13-76 11:19:00* Test Item Value Reference Range Interpretation Comments Mean Corpuscular Volume (test code = 787-2) 83.7 81-99 [facility] CenterMean Corpuscular Hbaaejmazd1137-52-69 11:19:00* Test Item Value Reference Range Interpretation Comments Mean Corpuscular Hemoglobin (test code = 785-6) 25.2 28-32 L [facility] CenterMean Corpuscular Hemoglobin Concent 2018-02-04 11:19:00* Test Item Value Reference Range Interpretation Comments Mean Corpuscular Hemoglobin Concent (test code = 786-4) 30.1 31-35 L [facility] CenterRed Cell Distribution Ligqv7499-77-27 11:19:00* Test Item Value Reference Range Interpretation Comments Red Cell Distribution Width (test code = 79420-4) 15.7 11.7 -14.4 H [facility] CenterPlatelet Sqona7457-22-56 11:19:00* Test Item Value Reference Range Interpretation Comments Platelet Count (test code = 777-3) 217 140-360 [facility] CenterNeutrophils (%) (Auto)2018-02-04 11:19:00 * Test Item Value Reference Range Interpretation Comments Neutrophils (%) (Auto) (test code = 16430-5) 70.5 38.7-80.0 [facility] CenterLymphocytes (%) (Auto)2018-02-04 11:19:00 * Test Item Value Reference Range Interpretation Comments Lymphocytes (%) (Auto) (test code = 736-9) 19.0 18.0-39.1 [facility] CenterMonocytes (%) (Auto)2018-02-04 11:19:00* Test Item Value Reference Range Interpretation Comments Monocytes (%) (Auto) (test code = 5905-5) 5.3 4.4-11.3 [facility] CenterEosinophils (%) (Auto)2018-02-04 11:19:00 * Test Item Value Reference Range Interpretation Comments Eosinophils (%) (Auto) (test code = 713-8) 3.2 0.0-6.0 [facility] CenterBasophils (%) (Auto)2018-02-04 11:19:00* Test Item Value Reference Range Interpretation Comments Basophils (%) (Auto) (test code = 706-2) 1.0 0.0-1.0 [facility] CenterIM GRANULOCYTES %2018-02-04 11:19:00* Test Item Value Reference Range Interpretation Comments IM GRANULOCYTES % (test code = IM GRANULOCYTES %) 1.0 0.0- 1.0 [facility] CenterNeutrophils # (Auto)2018-02-04 11:19:00* Test Item Value Reference Range Interpretation Comments Neutrophils # (Auto) (test code = 751-8) 4.9 2.1-6.9 [facility] CenterLymphocytes # (Auto)2018-02-04 11:19:00* Test Item Value Reference Range Interpretation Comments Lymphocytes # (Auto) (test code = 07218-0) 1.3 1.0-3.2 [facility] CenterMonocytes # (Auto)2018-02-04 11:19:00* Test Item Value Reference Range Interpretation Comments Monocytes # (Auto) (test code = 742-7) 0.4 0.2-0.8 [facility] CenterEosinophils # (Auto)2018-02-04 11:19:00* Test Item Value Reference Range Interpretation Comments Eosinophils # (Auto) (test code = 711-2) 0.2 0.0-0.4 [facility] CenterBasophils # (Auto)2018-02-04 11:19:00* Test Item Value Reference Range Interpretation Comments Basophils # (Auto) (test code = 704-7) 0.1 0.0-0.1 [facility] CenterAbsolute Immature Granulocyte (auto 2018-02-04 11:19:00* Test Item Value Reference Range Interpretation Comments Absolute Immature Granulocyte (auto (joseph t code = Absolute Immature Granulocyte (auto) 0.07 0-0.1 [facility] CenterUrine Rszec2800-73-74 11:17:00* Test Item Value Reference Range Interpretation Comments Urine Color (test code = 5778-6) YELLOW YELLOW [facility] CenterUrine Clpplae7163-71-73 11:17:00* Test Item Value Reference Range Interpretation Comments Urine Clarity (test code = 69785-4) CLEAR CLEAR [facility] CenterUrine Specific Guyvolg5061-72-17 11:17:00 * Test Item Value Reference Range Interpretation Comments Urine Specific [place] (test code = 5811-5) 1.010 1.010-1.02 5 [facility] CenterUrine yC0890-04-52 11:17:00* Test Item Value Reference Range Interpretation Comments Urine pH (test code = 19169-3) 6 5-7 [facility] CenterUrine Leukocyte Ifjlyrgz9099-45-39 11:17:00* Test Item Value Reference Range Interpretation Comments Urine Leukocyte Esterase (test code = 5799-2) NEGATIVE NEGATIVE [facility] CenterUrine Zszjlvi9224-47-42 11:17:00* Test Item Value Reference Range Interpretation Comments Urine Nitrite (test code = 82077-3) NEGATIVE NEGATIVE [facility] CenterUrine Pqgfxpn6604-92-18 11:17:00* Test Item Value Reference Range Interpretation Comments Urine Protein (test code = 5804-0) NEGATIVE NEGATIVE [facility] CenterUrine Glucose (UA)2018-02-04 11:17:00* Test Item Value Reference Range Interpretation Comments Urine Glucose (UA) (test code = 2349-9) NEGATIVE NEGATIVE [facility] CenterUrine Bvygrfv1619-35-52 11:17:00* Test Item Value Reference Range Interpretation Comments Urine Ketones (test code = 99700-4) NEGATIVE NEGATIVE [facility] CenterUrine Opiates Lwfqku9703-12-26 11:17:00* Test Item Value Reference Range Interpretation Comments Urine Opiates Screen (test code = 01553-2) NEGATIVE NEGATIVE [facility] CenterUrine Barbiturates Pvnbiu0655-94-98 11:17:00* Test Item Value Reference Range Interpretation Comments Urine Barbiturates Screen (test code = 642290089) NEGATIVE NEGA TIVE [facility] CenterUrine Phencyclidine Mjopkg1248-72-94 11:17:00* Test Item Value Reference Range Interpretation Comments Urine Phencyclidine Screen (test code = 27272-7) NEGATIVE NEGAT MARY [facility] CenterUrine Amphetamines Ybpyju7698-99-00 11:17:00* Test Item Value Reference Range Interpretation Comments Urine Amphetamines Screen (test code = 27214-7) NEGATIVE NEGATI VE [facility] CenterUrine Methamphetamines Lcygcb3288-88-41 11:17:00* Test Item Value Reference Range Interpretation Comments Urine Methamphetamines Screen (test code = Urine Metha mphetamines Screen) NEGATIVE NEGATIVE [facility] CenterUrine Benzodiazepines Oqqbls8319-90-76 11:17:00* Test Item Value Reference Range Interpretation Comments Urine Benzodiazepines Screen (test code = 04106-3) NEGATIVE NEG ATIVE [facility] CenterUrine Cocaine Pnezji4194-24-11 11:17:00* Test Item Value Reference Range Interpretation Comments Urine Cocaine Screen (test code = 3398-5) NEGATIVE NEGATIVE [facility] CenterUrine Cannabinoids Ocbzuo2789-77-34 11:17:00* Test Item Value Reference Range Interpretation Comments Urine Cannabinoids Screen (test code = 25250-3) NEGATIVE NEGATI VE THESE RESULTS ARE FOR MEDICAL TREATMENT ONLYTHIS REPORT CONTAINS UNCONFIR MED SCREENING RESULTS*POSITIVE RESULTS WILL BE CONFIRMED BY REFERENCE LAB UPON R EQUEST CUT-OFFDRUG CLASS CONCENTRATION ng/mLAmphetamines 1000Methamphetamines 1000Cocaine 300Opiate 300Phencyc lidine 25Cannabinoid 50Barbiturates 300Benzodiazepine 300Methadone 300[facility] Ybjbgxuarewp1441-81-01 11:17:00* Test Item Value Reference Range Interpretation Comments Urine Urobilinogen (test code = 82762-4) 0.2 0.2-1 [facility] CenterUrine Iszuhakkq8705-77-67 11:17:00* Test Item Value Reference Range Interpretation Comments Urine Bilirubin (test code = 1978-6) NEGATIVE NEGATIVE [facility] Ymjkg1780-78-30 11:17:00* Test Item Value Reference Range Interpretation Comments Urine Blood (test code = 75288-0) NEGATIVE NEGATIVE [facility] WCF7953-01-09 11:17:00* Test Item Value Reference Range Interpretation Comments Urine WBC (test code = 5821-4) 0-5 0-5 [facility] FGY4931-11-81 11:17:00* Test Item Value Reference Range Interpretation Comments Urine RBC (test code = 82084-9) NONE 0-5 [facility] CenterUrine Hsggbagw6012-32-50 11:17:00* Test Item Value Reference Range Interpretation Comments Urine Bacteria (test code = 78443-2) FEW NONE [facility] CenterUrine Epithelial Yphed8070-42-50 11:17:00 * Test Item Value Reference Range Interpretation Comments Urine Epithelial Cells (test code = 83091-8) MODERATE NONE [facility] CenterUrine Modua1570-38-65 11:17:00* Test Item Value Reference Range Interpretation Comments Urine Mucus (test code = 8247-9) FEW RARE H [facility] Opiates Mhivsd0005-69-85 11:17:00* Test Item Value Reference Range Interpretation Comments Urine Opiates Screen (test code = 75402-2) NEGATIVE NEGATIVE [facility] CenterUrine Barbiturates Vxaayi0352-03-99 11:17:00* Test Item Value Reference Range Interpretation Comments Urine Barbiturates Screen (test code = 417952007) NEGATIVE NEGA TIVE [facility] CenterUrine Phencyclidine Tzuunl4364-62-59 11:17:00* Test Item Value Reference Range Interpretation Comments Urine Phencyclidine Screen (test code = 88271-3) NEGATIVE NEGAT MARY [facility] CenterUrine Amphetamines Kcgpaa8980-30-89 11:17:00* Test Item Value Reference Range Interpretation Comments Urine Amphetamines Screen (test code = 94219-2) NEGATIVE NEGATI VE [facility] CenterUrine Methamphetamines Cajary4511-70-89 11:17:00* Test Item Value Reference Range Interpretation Comments Urine Methamphetamines Screen (test code = Urine Metha mphetamines Screen) NEGATIVE NEGATIVE [facility] CenterUrine Benzodiazepines Ebgxvr5221-16-26 11:17:00* Test Item Value Reference Range Interpretation Comments Urine Benzodiazepines Screen (test code = 34678-8) NEGATIVE NEG ATIVE [facility] CenterUrine Cocaine Kdyufr5380-96-98 11:17:00* Test Item Value Reference Range Interpretation Comments Urine Cocaine Screen (test code = 3398-5) NEGATIVE NEGATIVE [facility] CenterUrine Cannabinoids Smawkv5129-14-66 11:17:00* Test Item Value Reference Range Interpretation Comments Urine Cannabinoids Screen (test code = 86930-8) NEGATIVE NEGATI VE THESE RESULTS ARE FOR MEDICAL TREATMENT ONLYTHIS REPORT CONTAINS UNCONFIR MED SCREENING RESULTS*POSITIVE RESULTS WILL BE CONFIRMED BY REFERENCE LAB UPON R EQUEST CUT-OFFDRUG CLASS CONCENTRATION ng/mLAmphetamines 1000Methamphetamines 1000Cocaine 300Opiate 300Phencyc lidine 25Cannabinoid 50Barbiturates 300Benzodiazepine 300Methadone 300[facility] Rrbxq1480-40-86 11:17:00* Test Item Value Reference Range Interpretation Comments Urine Mucus (test code = 8247-9) FEW RARE H [facility] CenterUrine Opiates Vtaijl9907-45-10 11:17:00* Test Item Value Reference Range Interpretation Comments Urine Opiates Screen (test code = 30106-8) NEGATIVE NEGATIVE [facility] CenterUrine Barbiturates Xxarbj9041-78-83 11:17:00* Test Item Value Reference Range Interpretation Comments Urine Barbiturates Screen (test code = 662604345) NEGATIVE NEGA TIVE [facility] CenterUrine Phencyclidine Yglola9856-26-31 11:17:00* Test Item Value Reference Range Interpretation Comments Urine Phencyclidine Screen (test code = 50989-3) NEGATIVE NEGAT MARY [facility] CenterUrine Amphetamines Keforc6692-26-64 11:17:00* Test Item Value Reference Range Interpretation Comments Urine Amphetamines Screen (test code = 03306-9) NEGATIVE NEGATI VE [facility] CenterUrine Methamphetamines Jhnkiu3209-29-35 11:17:00* Test Item Value Reference Range Interpretation Comments Urine Methamphetamines Screen (test code = Urine Metha mphetamines Screen) NEGATIVE NEGATIVE [facility] CenterUrine Benzodiazepines Lcluto4170-42-05 11:17:00* Test Item Value Reference Range Interpretation Comments Urine Benzodiazepines Screen (test code = 55545-8) NEGATIVE NEG ATIVE [facility] CenterUrine Cocaine Odgflr6431-11-19 11:17:00* Test Item Value Reference Range Interpretation Comments Urine Cocaine Screen (test code = 3398-5) NEGATIVE NEGATIVE [facility] CenterUrine Cannabinoids Tihbdu5969-13-24 11:17:00* Test Item Value Reference Range Interpretation Comments Urine Cannabinoids Screen (test code = 27377-5) NEGATIVE NEGATI VE THESE RESULTS ARE FOR MEDICAL TREATMENT ONLYTHIS REPORT CONTAINS UNCONFIR MED SCREENING RESULTS*POSITIVE RESULTS WILL BE CONFIRMED BY REFERENCE LAB UPON R EQUEST CUT-OFFDRUG CLASS CONCENTRATION ng/mLAmphetamines 1000Methamphetamines 1000Cocaine 300Opiate 300Phencyc lidine 25Cannabinoid 50Barbiturates 300Benzodiazepine 300Methadone 300[facility] Uzjna2328-71-30 11:17:00* Test Item Value Reference Range Interpretation Comments Urine Mucus (test code = 8247-9) FEW RARE H [facility] CenterUrine Opiates Kpqviu9555-52-78 11:17:00* Test Item Value Reference Range Interpretation Comments Urine Opiates Screen (test code = 96068-1) NEGATIVE NEGATIVE [facility] CenterUrine Barbiturates Claunn2968-65-25 11:17:00* Test Item Value Reference Range Interpretation Comments Urine Barbiturates Screen (test code = 159224760) NEGATIVE NEGA TIVE [facility] CenterUrine Phencyclidine Dmsqca5624-87-98 11:17:00* Test Item Value Reference Range Interpretation Comments Urine Phencyclidine Screen (test code = 79336-0) NEGATIVE NEGAT MARY [facility] CenterUrine Amphetamines Xxgfli7016-42-46 11:17:00* Test Item Value Reference Range Interpretation Comments Urine Amphetamines Screen (test code = 84644-2) NEGATIVE NEGATI VE [facility] CenterUrine Methamphetamines Dswtrc0872-83-84 11:17:00* Test Item Value Reference Range Interpretation Comments Urine Methamphetamines Screen (test code = Urine Metha mphetamines Screen) NEGATIVE NEGATIVE [facility] CenterUrine Benzodiazepines Qmpaxd2010-80-01 11:17:00* Test Item Value Reference Range Interpretation Comments Urine Benzodiazepines Screen (test code = 45551-1) NEGATIVE NEG ATIVE [facility] CenterUrine Cocaine Nmxbda9948-31-79 11:17:00* Test Item Value Reference Range Interpretation Comments Urine Cocaine Screen (test code = 3398-5) NEGATIVE NEGATIVE [facility] CenterUrine Cannabinoids Xspfcw7284-99-04 11:17:00* Test Item Value Reference Range Interpretation Comments Urine Cannabinoids Screen (test code = 82727-3) NEGATIVE NEGATI VE THESE RESULTS ARE FOR MEDICAL TREATMENT ONLYTHIS REPORT CONTAINS UNCONFIR MED SCREENING RESULTS*POSITIVE RESULTS WILL BE CONFIRMED BY REFERENCE LAB UPON R EQUEST CUT-OFFDRUG CLASS CONCENTRATION ng/mLAmphetamines 1000Methamphetamines 1000Cocaine 300Opiate 300Phencyc lidine 25Cannabinoid 50Barbiturates 300Benzodiazepine 300Methadone 300[facility] Qxetf1222-81-98 11:17:00* Test Item Value Reference Range Interpretation Comments Urine Mucus (test code = 8247-9) FEW RARE H [facility] CenterUrine Opiates Vidlxf4182-52-77 11:17:00* Test Item Value Reference Range Interpretation Comments Urine Opiates Screen (test code = 91122-7) NEGATIVE NEGATIVE [facility] CenterUrine Barbiturates Uqminv1758-18-77 11:17:00* Test Item Value Reference Range Interpretation Comments Urine Barbiturates Screen (test code = 589900843) NEGATIVE NEGA TIVE [facility] CenterUrine Phencyclidine Zlbvca9639-09-38 11:17:00* Test Item Value Reference Range Interpretation Comments Urine Phencyclidine Screen (test code = 11906-4) NEGATIVE NEGAT MARY [facility] CenterUrine Amphetamines Icyksc5346-52-58 11:17:00* Test Item Value Reference Range Interpretation Comments Urine Amphetamines Screen (test code = 29069-1) NEGATIVE NEGATI VE [facility] CenterUrine Methamphetamines Vyvtsf9023-50-99 11:17:00* Test Item Value Reference Range Interpretation Comments Urine Methamphetamines Screen (test code = Urine Metha mphetamines Screen) NEGATIVE NEGATIVE [facility] CenterUrine Benzodiazepines Bveuke0394-52-69 11:17:00* Test Item Value Reference Range Interpretation Comments Urine Benzodiazepines Screen (test code = 76985-5) NEGATIVE NEG ATIVE [facility] CenterUrine Cocaine Gcoish6745-96-15 11:17:00* Test Item Value Reference Range Interpretation Comments Urine Cocaine Screen (test code = 3398-5) NEGATIVE NEGATIVE [facility] CenterUrine Cannabinoids Rhdlbp7977-30-03 11:17:00* Test Item Value Reference Range Interpretation Comments Urine Cannabinoids Screen (test code = 41527-5) NEGATIVE NEGATI VE THESE RESULTS ARE FOR MEDICAL TREATMENT ONLYTHIS REPORT CONTAINS UNCONFIR MED SCREENING RESULTS*POSITIVE RESULTS WILL BE CONFIRMED BY REFERENCE LAB UPON R EQUEST CUT-OFFDRUG CLASS CONCENTRATION ng/mLAmphetamines 1000Methamphetamines 1000Cocaine 300Opiate 300Phencyc lidine 25Cannabinoid 50Barbiturates 300Benzodiazepine 300Methadone 300[facility] Bjvaq0193-26-49 11:17:00* Test Item Value Reference Range Interpretation Comments Urine Mucus (test code = 8247-9) FEW RARE H [facility] CenterB-Type Natriuretic Dxkbveq3102-66-00 11:08:00* Test Item Value Reference Range Interpretation Comments B-Type Natriuretic Peptide (test code = 90805-3) 29.0 0-100 [facility] Vqzyz3079-99-78 11:03:00* Test Item Value Reference Range Interpretation Comments Sodium Level (test code = 2951-2) 140 136-145 [facility] CenterPotassium Jdxvz9901-90-62 11:03:00* Test Item Value Reference Range Interpretation Comments Potassium Level (test code = 2823-3) 3.7 3.5-5.1 [facility] CenterChloride Cidsi1187-94-62 11:03:00* Test Item Value Reference Range Interpretation Comments Chloride Level (test code = 2075-0) 100 98-107 [facility] CenterCarbon Dioxide Tpgke4276-77-52 11:03:00* Test Item Value Reference Range Interpretation Comments Carbon Dioxide Level (test code = 2028-9) 28 22-29 [facility] CenterAnion Flk2537-78-89 11:03:00* Test Item Value Reference Range Interpretation Comments Anion Gap (test code = 17578-7) 15.7 8-16 [facility] CenterBlood Urea Dsvqmhdz2248-71-94 11:03:00* Test Item Value Reference Range Interpretation Comments Blood Urea Nitrogen (test code = 3094-0) 39 7-26 H [facility] CenterCreatinine2018-07-15 11:03:00* Test Item Value Reference Range Interpretation Comments Creatinine (test code = 2160-0) 1.29 0.57-1.11 H [facility] CenterBUN/Creatinine Vuity6202-36-77 11:03:00* Test Item Value Reference Range Interpretation Comments BUN/Creatinine Ratio (test code = 3097-3) 30 6-25 H [facility] CenterEstimat Glomerular Filtration Rate 2018-02-04 11:03:00* Test Item Value Reference Range Interpretation Comments Estimat Glomerular Filtration Rate (test code = 00881-5) 42 >60 L Ranges were taken from the National Kidney Disease Education Program and the [facility] Kidney Foundation literature.Reference ranges:60 or greater: Pyfwsq59-61 ( for 3 consecutive months): Chronic kidney disease 15 or less: Kidney failureMemorial Hermann–[facility] Medical CenterGlucose Eikel4485-70-59 11:03:00* Test Item Value Reference Range Interpretation Comments Glucose Level (test code = SGG6123) 155 74-118 H [facility] CenterCalcium Kiddm4714-14-00 11:03:00* Test Item Value Reference Range Interpretation Comments Calcium Level (test code = 24254-1) 9.0 8.4-10.2 [facility] CenterMagnesium Eiale0495-12-62 11:03:00* Test Item Value Reference Range Interpretation Comments Magnesium Level (test code = 15387-2) 1.7 1.3-2.1 [facility] CenterTotal Sbjwoeqff2343-80-57 11:03:00* Test Item Value Reference Range Interpretation Comments Total Bilirubin (test code = 1975-2) 0.4 0.2-1.2 [facility] CenterAspartate Amino Transf (AST/SGOT) 2018-02-04 11:03:00* Test Item Value Reference Range Interpretation Comments Aspartate Amino Transf (AST/SGOT) (test code = Aspartate Amino Transf (AST/SGOT)) 15 5-34 [facility] CenterAlanine Aminotransferase (ALT/SGPT) 2018-02-04 11:03:00* Test Item Value Reference Range Interpretation Comments Alanine Aminotransferase (ALT/SGPT) (test code = 1742-6) 20 0-55 [facility] CenterTotal Ucpqwsw4880-05-54 11:03:00* Test Item Value Reference Range Interpretation Comments Total Protein (test code = 2885-2) 6.7 6.5-8.1 [facility] CenterAlbumin2018-07-15 11:03:00* Test Item Value Reference Range Interpretation Comments Albumin (test code = 1751-7) 3.3 3.5-5.0 L [facility] CenterGlobulin2018-07-15 11:03:00* Test Item Value Reference Range Interpretation Comments Globulin (test code = 99655-8) 3.4 2.3-3.5 [facility] CenterAlbumin/Globulin Fncvw4746-99-58 11:03:00 * Test Item Value Reference Range Interpretation Comments Albumin/Globulin Ratio (test code = 1759-0) 1.0 0.8-2.0 [facility] CenterAlkaline Hqvclzirteb3645-54-00 11:03:00* Test Item Value Reference Range Interpretation Comments Alkaline Phosphatase (test code = 6768-6) 63 40-150 [facility] CenterAmylase Eiupr4383-43-03 11:03:00* Test Item Value Reference Range Interpretation Comments Amylase Level (test code = 1798-8) 30 25-125 [facility] CenterLipase2018-07-15 11:03:00* Test Item Value Reference Range Interpretation Comments Lipase (test code = 3040-3) 16 [facility] CenterMagnesium Gjemw4700-69-02 11:03:00* Test Item Value Reference Range Interpretation Comments Magnesium Level (test code = 91546-1) 1.7 1.3-2.1 [facility] CenterAmylase Okfis9062-69-96 11:03:00* Test Item Value Reference Range Interpretation Comments Amylase Level (test code = 1798-8) 30 25-125 [facility] CenterLipase2018-07-15 11:03:00* Test Item Value Reference Range Interpretation Comments Lipase (test code = 3040-3) 16 78 [facility] CenterMagnesium Fxrny2685-97-14 11:03:00* Test Item Value Reference Range Interpretation Comments Magnesium Level (test code = 02498-6) 1.7 1.3-2.1 [facility] CenterAmylase Cyyjf8221-93-47 11:03:00* Test Item Value Reference Range Interpretation Comments Amylase Level (test code = 1798-8) 30 25-125 [facility] CenterLipase2018-07-15 11:03:00* Test Item Value Reference Range Interpretation Comments Lipase (test code = 3040-3) 16 [facility] CenterMagnesium Jfkiy8108-57-51 11:03:00* Test Item Value Reference Range Interpretation Comments Magnesium Level (test code = 63554-2) 1.7 1.3-2.1 [facility] CenterAmylase Oasoz9895-05-54 11:03:00* Test Item Value Reference Range Interpretation Comments Amylase Level (test code = 1798-8) 30 25-125 [facility] CenterLipase2018-07-15 11:03:00* Test Item Value Reference Range Interpretation Comments Lipase (test code = 3040-3) 16 [facility] CenterMagnesium Rxcjj3455-62-37 11:03:00* Test Item Value Reference Range Interpretation Comments Magnesium Level (test code = 81593-7) 1.7 1.3-2.1 [facility] CenterAmylase Bbhzf4899-06-60 11:03:00* Test Item Value Reference Range Interpretation Comments Amylase Level (test code = 1798-8) 30 25-125 [facility] CenterLipase2018-07-15 11:03:00* Test Item Value Reference Range Interpretation Comments Lipase (test code = 3040-3) 16 [facility] CenterB-Type Natriuretic Vdeihfo0811-20-91 23:54:00* Test Item Value Reference Range Interpretation Comments B-Type Natriuretic Peptide (test code = 66930-2) 38.5 0-100 [facility] CenterCreatine Kinase OF8764-47-14 23:54:00* Test Item Value Reference Range Interpretation Comments Creatine Kinase MB (test code = 76923-1) 1.10 0-5.0 [facility] CenterTroponin C4671-24-48 23:54:00* Test Item Value Reference Range Interpretation Comments Troponin I (test code = AXF8876) -0.001 0-0.300 [facility] CenterUrine HGB5502-24-09 23:42:00* Test Item Value Reference Range Interpretation Comments Urine WBC (test code = 5821-4) 0-5 0-5 [facility] CenterUrine FRF6580-94-90 23:42:00* Test Item Value Reference Range Interpretation Comments Urine RBC (test code = 92852-1) NONE 0-5 [facility] CenterUrine Xrbfslej3305-84-61 23:42:00* Test Item Value Reference Range Interpretation Comments Urine Bacteria (test code = 53924-5) RARE NONE [facility] CenterUrine Epithelial Minfg0032-63-75 23:42:00 * Test Item Value Reference Range Interpretation Comments Urine Epithelial Cells (test code = 34367-0) [facility] NONE [facility] Psspa4555-28-44 23:39:00* Test Item Value Reference Range Interpretation Comments Sodium Level (test code = 2951-2) 135 136-145 L [facility] CenterPotassium Appik3212-85-27 23:39:00* Test Item Value Reference Range Interpretation Comments Potassium Level (test code = 2823-3) 4.3 3.5-5.1 [facility] CenterChloride Qchfw0166-30-44 23:39:00* Test Item Value Reference Range Interpretation Comments Chloride Level (test code = 2075-0) 99 98-107 [facility] CenterCarbon Dioxide Ulquj1524-63-33 23:39:00* Test Item Value Reference Range Interpretation Comments Carbon Dioxide Level (test code = 2028-9) 25 22-29 [facility] CenterAnion Kis7057-10-85 23:39:00* Test Item Value Reference Range Interpretation Comments Anion Gap (test code = 05561-0) 15.3 8-16 [facility] CenterBlood Urea Yuqrwufx9978-21-97 23:39:00* Test Item Value Reference Range Interpretation Comments Blood Urea Nitrogen (test code = 3094-0) 33 7-26 H [facility] CenterCreatinine2018-07-11 23:39:00* Test Item Value Reference Range Interpretation Comments Creatinine (test code = 2160-0) 1.41 0.57-1.11 H [facility] CenterBUN/Creatinine Savdy3715-02-06 23:39:00* Test Item Value Reference Range Interpretation Comments BUN/Creatinine Ratio (test code = 3097-3) 23 6-25 [facility] CenterEstimat Glomerular Filtration Rate 2018-01-31 23:39:00* Test Item Value Reference Range Interpretation Comments Estimat Glomerular Filtration Rate (test code = 63485-3) 38 >60 L Ranges were taken from the National Kidney Disease Education Program and the [facility] Kid[facility] Foundation literature.Reference ranges:60 or greater: Tosqcs92-23 ( for 3 consecutive months): Chronic kidney disease 15 or less: Kidney failureMemorial Hermann–[facility] Medical CenterGlucose Musnc9115-12-23 23:39:00* Test Item Value Reference Range Interpretation Comments Glucose Level (test code = ZNZ9866) 622 74-118 HH Results called to Ann Rodriguez at 2338 on 01/31/18 by Andreea Olivier. RB [place]. [facility] CenterCalcium Eccuo8777-56-06 23:39:00* Test Item Value Reference Range Interpretation Comments Calcium Level (test code = 38846-9) 9.3 8.4-10.2 [facility] CenterMagnesium Xiwvw7265-02-00 23:39:00* Test Item Value Reference Range Interpretation Comments Magnesium Level (test code = 05023-7) 2.0 1.3-2.1 [facility] CenterTotal Kqywrsjef8666-96-88 23:39:00* Test Item Value Reference Range Interpretation Comments Total Bilirubin (test code = 1975-2) 0.3 0.2-1.2 [facility] CenterAspartate Amino Transf (AST/SGOT) 2018-01-31 23:39:00* Test Item Value Reference Range Interpretation Comments Aspartate Amino Transf (AST/SGOT) (test code = Aspartate Amino Transf (AST/SGOT)) 10 5-34 [facility] CenterAlanine Aminotransferase (ALT/SGPT) 2018-01-31 23:39:00* Test Item Value Reference Range Interpretation Comments Alanine Aminotransferase (ALT/SGPT) (test code = 1742-6) 18 0-55 [facility] CenterTotal Nmhhzwh4898-59-72 23:39:00* Test Item Value Reference Range Interpretation Comments Total Protein (test code = 2885-2) 6.7 6.5-8.1 [facility] CenterAlbumin2018-07-11 23:39:00* Test Item Value Reference Range Interpretation Comments Albumin (test code = 1751-7) 3.4 3.5-5.0 L [facility] CenterGlobulin2018-07-11 23:39:00* Test Item Value Reference Range Interpretation Comments Globulin (test code = 81848-0) 3.3 2.3-3.5 [facility] CenterAlbumin/Globulin Wizhq0306-71-42 23:39:00 * Test Item Value Reference Range Interpretation Comments Albumin/Globulin Ratio (test code = 1759-0) 1.0 0.8-2.0 [facility] CenterAlkaline Hiwwndtjhna7733-60-32 23:39:00* Test Item Value Reference Range Interpretation Comments Alkaline Phosphatase (test code = 6768-6) 63 40-150 [facility] CenterCreatine Dxfwuk8007-34-32 23:39:00* Test Item Value Reference Range Interpretation Comments Creatine Kinase (test code = 2157-6) 40 29-168 [facility] CenterProthrombin Bgof9143-42-62 23:34:00* Test Item Value Reference Range Interpretation Comments Prothrombin Time (test code = 5902-2) 13.5 11.9-14.5 [facility] CenterProthromb Time International Ratio 2018-01-31 23:34:00* Test Item Value Reference Range Interpretation Comments Prothromb Time International Ratio (test code = 6301-6) 1.11 Oral Anticoagulant Therapy INR Values:1. Low Intensity Therapy 1.5 - 2.02 . Moderate Intensity Therapy 2.0 - 3.03. High Intensity Therapy(1) 2.5 - 3. 54. High Intensity Therapy(2) 3.0 - 4.05. Panic Value INR > 5.0 [facility] CenterActivated Partial Thromboplast Time 2018-01-31 23:34:00* Test Item Value Reference Range Interpretation Comments Activated Partial Thromboplast Time (test code = 72591-1) 23.4 23.8-35.5 L [facility] CenterUrine Pbhvw6876-41-39 23:34:00* Test Item Value Reference Range Interpretation Comments Urine Color (test code = 5778-6) YELLOW YELLOW [facility] CenterUrine Dnpgjuj2919-74-79 23:34:00* Test Item Value Reference Range Interpretation Comments Urine Clarity (test code = 58461-5) CLEAR CLEAR [facility] CenterUrine Specific Drimeir2687-80-03 23:34:00 * Test Item Value Reference Range Interpretation Comments Urine Specific [place] (test code = 5811-5) 1.010 1.010-1.02 5 [facility] CenterUrine dP8821-40-62 23:34:00* Test Item Value Reference Range Interpretation Comments Urine pH (test code = 36662-5) 6 5-7 [facility] CenterUrine Leukocyte Kbzlrvpi1996-72-89 23:34:00* Test Item Value Reference Range Interpretation Comments Urine Leukocyte Esterase (test code = 5799-2) NEGATIVE NEGATIVE [facility] CenterUrine Hawwlpb4136-91-16 23:34:00* Test Item Value Reference Range Interpretation Comments Urine Nitrite (test code = 05592-0) NEGATIVE NEGATIVE [facility] CenterUrine Bflxdwa8734-47-23 23:34:00* Test Item Value Reference Range Interpretation Comments Urine Protein (test code = 5804-0) NEGATIVE NEGATIVE [facility] Glucose (UA)2018-01-31 23:34:00* Test Item Value Reference Range Interpretation Comments Urine Glucose (UA) (test code = 2349-9) 3+ NEGATIVE H [facility] CenterUrine Xgqiezc3463-07-85 23:34:00* Test Item Value Reference Range Interpretation Comments Urine Ketones (test code = 76833-3) NEGATIVE NEGATIVE [facility] CenterUrine Emfkqeisfvvr2387-19-89 23:34:00* Test Item Value Reference Range Interpretation Comments Urine Urobilinogen (test code = 08468-1) 0.2 0.2-1 [facility] CenterUrine Biwqqpyms5560-88-45 23:34:00* Test Item Value Reference Range Interpretation Comments Urine Bilirubin (test code = 1978-6) NEGATIVE NEGATIVE [facility] CenterUrine Nyfgr8487-37-89 23:34:00* Test Item Value Reference Range Interpretation Comments Urine Blood (test code = 30107-8) NEGATIVE NEGATIVE [facility] CenterProthrombin Wdvs7647-33-10 23:34:00* Test Item Value Reference Range Interpretation Comments Prothrombin Time (test code = 5902-2) 13.5 11.9-14.5 [facility] CenterProthromb Time International Ratio 2018-01-31 23:34:00* Test Item Value Reference Range Interpretation Comments Prothromb Time International Ratio (test code = 6301-6) 1.11 Oral Anticoagulant Therapy INR Values:1. Low Intensity Therapy 1.5 - 2.02 . Moderate Intensity Therapy 2.0 - 3.03. High Intensity Therapy(1) 2.5 - 3. 54. High Intensity Therapy(2) 3.0 - 4.05. Panic Value INR > 5.0 [facility] CenterActivated Partial Thromboplast Time 2018-01-31 23:34:00* Test Item Value Reference Range Interpretation Comments Activated Partial Thromboplast Time (test code = 41149-9) 23.4 23.8-35.5 L [facility] CenterProthrombin Zcth9998-38-37 23:34:00* Test Item Value Reference Range Interpretation Comments Prothrombin Time (test code = 5902-2) 13.5 11.9-14.5 [facility] CenterProthromb Time International Ratio 2018-01-31 23:34:00* Test Item Value Reference Range Interpretation Comments Prothromb Time International Ratio (test code = 6301-6) 1.11 Oral Anticoagulant Therapy INR Values:1. Low Intensity Therapy 1.5 - 2.02 . Moderate Intensity Therapy 2.0 - 3.03. High Intensity Therapy(1) 2.5 - 3. 54. High Intensity Therapy(2) 3.0 - 4.05. Panic Value INR > 5.0 [facility] CenterActivated Partial Thromboplast Time 2018-01-31 23:34:00* Test Item Value Reference Range Interpretation Comments Activated Partial Thromboplast Time (test code = 18228-8) 23.4 23.8-35.5 L [facility] CenterProthrombin Ilfi8158-82-41 23:34:00* Test Item Value Reference Range Interpretation Comments Prothrombin Time (test code = 5902-2) 13.5 11.9-14.5 [facility] CenterProthromb Time International Ratio 2018-01-31 23:34:00* Test Item Value Reference Range Interpretation Comments Prothromb Time International Ratio (test code = 6301-6) 1.11 Oral Anticoagulant Therapy INR Values:1. Low Intensity Therapy 1.5 - 2.02 . Moderate Intensity Therapy 2.0 - 3.03. High Intensity Therapy(1) 2.5 - 3. 54. High Intensity Therapy(2) 3.0 - 4.05. Panic Value INR > 5.0 [facility] CenterActivated Partial Thromboplast Time 2018-01-31 23:34:00* Test Item Value Reference Range Interpretation Comments Activated Partial Thromboplast Time (test code = 36645-4) 23.4 23.8-35.5 L [facility] CenterCHEST SINGLE (PORTABLE)2018-01-31 23:25:00 [place] [address] Patient Name: KALYANI TALAVERA MR #: [id number] : 1955 Age/Sex: 62/F Req #: [id number] Adm Physician: Ordered by: FLO TOLBERT MD Report #: [id number] Location: ER Room/Bed: Procedure: [id number] DX/CHEST SINGLE (PORTABLE) E xam Date: 01/31/18 [...] COPY TO: FLO TOLBERT MD White Blood Qagcm7012-95-14 23:20:00* Test Item Value Reference Range Interpretation Comments White Blood Count (test code = 6690-2) 5.55 4.8-10.8 [facility] CenterRed Blood Cvcuc6561-43-94 23:20:00* Test Item Value Reference Range Interpretation Comments Red Blood Count (test code = 789-8) 4.21 3.6-5.1 [facility] CenterHemoglobin2018-07-11 23:20:00* Test Item Value Reference Range Interpretation Comments Hemoglobin (test code = 02010-2) 10.6 12.0-16.0 L [facility] CenterHematocrit2018-07-11 23:20:00* Test Item Value Reference Range Interpretation Comments Hematocrit (test code = 4544-3) 34.8 34.2-44.1 [facility] CenterMean Corpuscular Odlwgk9184-93-35 23:20:00* Test Item Value Reference Range Interpretation Comments Mean Corpuscular Volume (test code = 787-2) 82.7 81-99 [facility] CenterMean Corpuscular Bbjjwnqhxb4929-78-30 23:20:00* Test Item Value Reference Range Interpretation Comments Mean Corpuscular Hemoglobin (test code = 785-6) 25.2 28-32 L [facility] Corpuscular Hemoglobin Concent 2018-01-31 23:20:00* Test Item Value Reference Range Interpretation Comments Mean Corpuscular Hemoglobin Concent (test code = 786-4) 30.5 31-35 L [facility] CenterRed Cell Distribution Bauon2548-49-67 23:20:00* Test Item Value Reference Range Interpretation Comments Red Cell Distribution Width (test code = 85325-6) 15.5 11.7 -14.4 H [facility] CenterPlatelet Qqdmx5527-84-03 23:20:00* Test Item Value Reference Range Interpretation Comments Platelet Count (test code = 777-3) 176 140-360 [facility] CenterNeutrophils (%) (Auto)2018-01-31 23:20:00 * Test Item Value Reference Range Interpretation Comments Neutrophils (%) (Auto) (test code = 71664-0) 68.7 38.7-80.0 [facility] CenterLymphocytes (%) (Auto)2018-01-31 23:20:00 * Test Item Value Reference Range Interpretation Comments Lymphocytes (%) (Auto) (test code = 736-9) 21.8 18.0-39.1 [facility] CenterMonocytes (%) (Auto)2018-01-31 23:20:00* Test Item Value Reference Range Interpretation Comments Monocytes (%) (Auto) (test code = 5905-5) 5.0 4.4-11.3 [facility] CenterEosinophils (%) (Auto)2018-01-31 23:20:00 * Test Item Value Reference Range Interpretation Comments Eosinophils (%) (Auto) (test code = 713-8) 2.5 0.0-6.0 [facility] CenterBasophils (%) (Auto)2018-01-31 23:20:00* Test Item Value Reference Range Interpretation Comments Basophils (%) (Auto) (test code = 706-2) 0.9 0.0-1.0 [facility] CenterIM GRANULOCYTES %2018-01-31 23:20:00* Test Item Value Reference Range Interpretation Comments IM GRANULOCYTES % (test code = IM GRANULOCYTES %) 1.1 0.0- 1.0 H [facility] CenterNeutrophils # (Auto)2018-01-31 23:20:00* Test Item Value Reference Range Interpretation Comments Neutrophils # (Auto) (test code = 751-8) 3.8 2.1-6.9 [facility] CenterLymphocytes # (Auto)2018-01-31 23:20:00* Test Item Value Reference Range Interpretation Comments Lymphocytes # (Auto) (test code = 97873-7) 1.2 1.0-3.2 [facility] CenterMonocytes # (Auto)2018-01-31 23:20:00* Test Item Value Reference Range Interpretation Comments Monocytes # (Auto) (test code = 742-7) 0.3 0.2-0.8 [facility] CenterEosinophils # (Auto)2018-01-31 23:20:00* Test Item Value Reference Range Interpretation Comments Eosinophils # (Auto) (test code = 711-2) 0.1 0.0-0.4 [facility] CenterBasophils # (Auto)2018-01-31 23:20:00* Test Item Value Reference Range Interpretation Comments Basophils # (Auto) (test code = 704-7) 0.1 0.0-0.1 [facility] CenterAbsolute Immature Granulocyte (auto 2018-01-31 23:20:00* Test Item Value Reference Range Interpretation Comments Absolute Immature Granulocyte (auto (joseph t code = Absolute Immature Granulocyte (auto) 0.06 0-0.1 [facility] Proqoey4164-28-55 18:58:00* Test Item Value Reference Range Interpretation Comments Bedside Glucose (test code = 86151-2) 293 70-120 H Meter ID: [id number] [facility] Glucose 2017-12-28 14:17:00* Test Item Value Reference Range Interpretation Comments Bedside Glucose (test code = 84195-6) 330 70-120 H Meter ID: [id number] Hermann–Texas Medical CenterKNEE RIGHT THREE HWWCX9883-61-03 10:49:00 [facility] [address] [address] Patient Name: KALYANI TALAVERA MR #: [id number] : 1955 Age/Sex: 62/F Req #: [id number] Adm Physician: BENJAMIN MASTERS MD Ordered by: LUCILLE OLIVO MD Report #: [id number] Location: [facility] Room/Bed: [place] [address] Procedure: [id number] DX/KNEE RIGHT THREE VIEWS Exam Date: 12/27/17 [...] Level (test code = 2951-2) 137 136-145 [facility] Azgrh2195-67-87 09:24:00* Test Item Value Reference Range Interpretation Comments Potassium Level (test code = 2823-3) 4.5 3.5-5.1 [facility] CenterChloride Fgukz4471-64-30 09:24:00* Test Item Value Reference Range Interpretation Comments Chloride Level (test code = 2075-0) 102 98-107 [facility] CenterCarbon Dioxide Vgjue1970-02-99 09:24:00* Test Item Value Reference Range Interpretation Comments Carbon Dioxide Level (test code = 2028-9) 28 22-29 [facility] CenterAnion Uic0342-86-89 09:24:00* Test Item Value Reference Range Interpretation Comments Anion Gap (test code = 32349-3) 11.5 8-16 [facility] CenterBlood Urea Mqxeuvjp3661-59-10 09:24:00* Test Item Value Reference Range Interpretation Comments Blood Urea Nitrogen (test code = 3094-0) 21 7-26 [facility] CenterCreatinine2018-06-04 09:24:00* Test Item Value Reference Range Interpretation Comments Creatinine (test code = 2160-0) 1.09 0.57-1.11 [facility] CenterBUN/Creatinine Ylont9938-17-47 09:24:00* Test Item Value Reference Range Interpretation Comments BUN/Creatinine Ratio (test code = 3097-3) 19 6-25 [facility] CenterEstimat Glomerular Filtration Rate 2017-12-25 09:24:00* Test Item Value Reference Range Interpretation Comments Estimat Glomerular Filtration Rate (test code = 21773-9) 51 >60 L Ranges were taken from the National Kidney Disease Education Program and the Jenise unc healthal Kidney Foundation literature.Reference ranges:60 or greater: Xewdoo84-98 ( for 3 consecutive months): Chronic kidney disease 15 or less: Kidney failureMemorial Hermann–[facility] Medical CenterGlucose Dcpdx4333-75-35 09:24:00* Test Item Value Reference Range Interpretation Comments Glucose Level (test code = IBP9370) 458 74-118 [facility] Results called to RANCHO CONTI RN at 0924 on 12/25/17 by Audi Manriquez. RB [place].Thi s test has been rerun and double checked for accuracy.[facility] CenterCalcium Lrusl1567-45-84 09:24:00* Test Item Value Reference Range Interpretation Comments Calcium Level (test code = 95651-3) 9.0 8.4-10.2 [facility] CenterCreatine Kinase TB9320-83-87 16:42:00* Test Item Value Reference Range Interpretation Comments Creatine Kinase MB (test code = 08773-9) 2.60 0-5.0 [facility] CenterTroponin V5841-29-87 16:42:00* Test Item Value Reference Range Interpretation Comments Troponin I (test code = AXU6280) -0.001 0-0.300 [facility] CenterCreatine Tmajyh6521-99-06 16:36:00* Test Item Value Reference Range Interpretation Comments Creatine Kinase (test code = 2157-6) 60 29-168 [facility] CenterTotal Egxpsblgk6187-64-15 08:48:00* Test Item Value Reference Range Interpretation Comments Total Bilirubin (test code = 1975-2) 0.3 0.2-1.2 [facility] CenterAspartate Amino Transf (AST/SGOT) 2017-12-24 08:48:00* Test Item Value Reference Range Interpretation Comments Aspartate Amino Transf (AST/SGOT) (test code = Aspartate Amino Transf (AST/SGOT)) 23 5-34 [facility] CenterAlanine Aminotransferase (ALT/SGPT) 2017-12-24 08:48:00* Test Item Value Reference Range Interpretation Comments Alanine Aminotransferase (ALT/SGPT) (test code = 1742-6) 45 0-55 [facility] CenterTotal Nnalesj4186-35-71 08:48:00* Test Item Value Reference Range Interpretation Comments Total Protein (test code = 2885-2) 6.3 6.5-8.1 L [facility] CenterAlbumin2018-06-03 08:48:00* Test Item Value Reference Range Interpretation Comments Albumin (test code = 1751-7) 3.2 3.5-5.0 L [facility] CenterGlobulin2018-06-03 08:48:00* Test Item Value Reference Range Interpretation Comments Globulin (test code = 10554-4) 3.1 2.3-3.5 [facility] CenterAlbumin/Globulin Upqei0056-54-66 08:48:00 * Test Item Value Reference Range Interpretation Comments Albumin/Globulin Ratio (test code = 1759-0) 1.0 0.8-2.0 [facility] CenterAlkaline Mkrculinykn4079-89-57 08:48:00* Test Item Value Reference Range Interpretation Comments Alkaline Phosphatase (test code = 6768-6) 71 40-150 [facility] CenterTriglycerides Ytvns5028-33-12 08:48:00* Test Item Value Reference Range Interpretation Comments Triglycerides Level (test code = 2571-8) 218 0-149 H [facility] CenterCholesterol Cfaev4530-93-77 08:48:00* Test Item Value Reference Range Interpretation Comments Cholesterol Level (test code = 2093-3) 168 0-199 Less than 200 mg/dL Low Ndxp566 - 239 mg/dL Borderline Alxv386 m g/dl and greater High Risk [facility] CenterLDL Mdweiogfndy5689-35-30 08:48:00* Test Item Value Reference Range Interpretation Comments LDL Cholesterol (test code = 2089-1) 96 60-130 [facility] CenterHDL Sjoaaumrydz2043-74-86 08:48:00* Test Item Value Reference Range Interpretation Comments HDL Cholesterol (test code = 2085-9) 28 40-60 L [facility] CenterCholesterol/HDL Ttlyn6390-57-84 08:48:00 * Test Item Value Reference Range Interpretation Comments Cholesterol/HDL Ratio (test code = 9830-1) 6.0 3.0-3.6 H [facility] CenterTriglycerides Deksq0660-35-91 08:48:00* Test Item Value Reference Range Interpretation Comments Triglycerides Level (test code = 2571-8) 218 0-149 H [facility] CenterCholesterol Rybvb2662-72-63 08:48:00* Test Item Value Reference Range Interpretation Comments Cholesterol Level (test code = 2093-3) 168 0-199 Less than 200 mg/dL Low Xyfl236 - 239 mg/dL Borderline Xthl334 m g/dl and greater High Risk [facility] CenterLDL Svakuhnaklk8366-96-58 08:48:00* Test Item Value Reference Range Interpretation Comments LDL Cholesterol (test code = 2089-1) 96 60-130 [facility] CenterHDL Facbcojazyz4805-17-13 08:48:00* Test Item Value Reference Range Interpretation Comments HDL Cholesterol (test code = 2085-9) 28 40-60 L [facility] CenterCholesterol/HDL Daftr9683-40-37 08:48:00 * Test Item Value Reference Range Interpretation Comments Cholesterol/HDL Ratio (test code = 9830-1) 6.0 3.0-3.6 H [facility] CenterWhite Blood Wwnpr5244-78-74 08:25:00* Test Item Value Reference Range Interpretation Comments White Blood Count (test code = 6690-2) 3.93 4.8-10.8 L [facility] CenterRed Blood Cdwaq6235-31-15 08:25:00* Test Item Value Reference Range Interpretation Comments Red Blood Count (test code = 789-8) 4.06 3.6-5.1 [facility] CenterHemoglobin2018-06-03 08:25:00* Test Item Value Reference Range Interpretation Comments Hemoglobin (test code = 77805-6) 10.2 12.0-16.0 L [facility] CenterHematocrit2018-06-03 08:25:00* Test Item Value Reference Range Interpretation Comments Hematocrit (test code = 4544-3) 34.0 34.2-44.1 L [facility] CenterMean Corpuscular Prdimv3516-66-07 08:25:00* Test Item Value Reference Range Interpretation Comments Mean Corpuscular Volume (test code = 787-2) 83.7 81-99 [facility] CenterMean Corpuscular Otzhszaocc5564-89-16 08:25:00* Test Item Value Reference Range Interpretation Comments Mean Corpuscular Hemoglobin (test code = 785-6) 25.1 28-32 L [facility] CenterMean Corpuscular Hemoglobin Concent 2017-12-24 08:25:00* Test Item Value Reference Range Interpretation Comments Mean Corpuscular Hemoglobin Concent (test code = 786-4) 30.0 31-35 L [facility] CenterRed Cell Distribution Wmfee8241-15-09 08:25:00* Test Item Value Reference Range Interpretation Comments Red Cell Distribution Width (test code = 11724-2) 15.2 11.7 -14.4 H [facility] CenterPlatelet Yvdmz1907-23-46 08:25:00* Test Item Value Reference Range Interpretation Comments Platelet Count (test code = 777-3) 169 140-360 [facility] CenterNeutrophils (%) (Auto)2017-12-24 08:25:00 * Test Item Value Reference Range Interpretation Comments Neutrophils (%) (Auto) (test code = 35527-5) 59.0 38.7-80.0 [facility] CenterLymphocytes (%) (Auto)2017-12-24 08:25:00 * Test Item Value Reference Range Interpretation Comments Lymphocytes (%) (Auto) (test code = 736-9) 27.5 18.0-39.1 [facility] CenterMonocytes (%) (Auto)2017-12-24 08:25:00* Test Item Value Reference Range Interpretation Comments Monocytes (%) (Auto) (test code = 5905-5) 6.6 4.4-11.3 [facility] CenterEosinophils (%) (Auto)2017-12-24 08:25:00 * Test Item Value Reference Range Interpretation Comments Eosinophils (%) (Auto) (test code = 713-8) 4.8 0.0-6.0 [facility] CenterBasophils (%) (Auto)2017-12-24 08:25:00* Test Item Value Reference Range Interpretation Comments Basophils (%) (Auto) (test code = 706-2) 1.3 0.0-1.0 H [facility] CenterIM GRANULOCYTES %2017-12-24 08:25:00* Test Item Value Reference Range Interpretation Comments IM GRANULOCYTES % (test code = IM GRANULOCYTES %) 0.8 0.0- 1.0 [facility] CenterNeutrophils # (Auto)2017-12-24 08:25:00* Test Item Value Reference Range Interpretation Comments Neutrophils # (Auto) (test code = 751-8) 2.3 2.1-6.9 [facility] CenterLymphocytes # (Auto)2017-12-24 08:25:00* Test Item Value Reference Range Interpretation Comments Lymphocytes # (Auto) (test code = 84915-5) 1.1 1.0-3.2 [facility] CenterMonocytes # (Auto)2017-12-24 08:25:00* Test Item Value Reference Range Interpretation Comments Monocytes # (Auto) (test code = 742-7) 0.3 0.2-0.8 [facility] CenterEosinophils # (Auto)2017-12-24 08:25:00* Test Item Value Reference Range Interpretation Comments Eosinophils # (Auto) (test code = 711-2) 0.2 0.0-0.4 [facility] CenterBasophils # (Auto)2017-12-24 08:25:00* Test Item Value Reference Range Interpretation Comments Basophils # (Auto) (test code = 704-7) 0.1 0.0-0.1 [facility] CenterAbsolute Immature Granulocyte (auto 2017-12-24 08:25:00* Test Item Value Reference Range Interpretation Comments Absolute Immature Granulocyte (auto (joseph t code = Absolute Immature Granulocyte (auto) 0.03 0-0.1 [facility] CenterB-Type Natriuretic Dbiwryy8007-10-46 23:03:00* Test Item Value Reference Range Interpretation Comments B-Type Natriuretic Peptide (test code = 19652-7) 125.0 0-100 H [facility] CenterThyroid Stimulating Hormone (TSH) 2017-12-23 22:39:00* Test Item Value Reference Range Interpretation Comments Thyroid Stimulating Hormone (TSH) (test code = 25819-5) 0.865 0.350-4.940 [facility] CenterThyroid Stimulating Hormone (TSH) 2017-12-23 22:39:00* Test Item Value Reference Range Interpretation Comments Thyroid Stimulating Hormone (TSH) (test code = 78993-4) 0.865 0.350-4.940 [facility] CenterThyroid Stimulating Hormone (TSH) 2017-12-23 22:39:00* Test Item Value Reference Range Interpretation Comments Thyroid Stimulating Hormone (TSH) (test code = 07204-9) 0.865 0.350-4.940 [facility] CenterThyroid Stimulating Hormone (TSH) 2017-12-23 22:39:00* Test Item Value Reference Range Interpretation Comments Thyroid Stimulating Hormone (TSH) (test code = 62077-7) 0.865 0.350-4.940 [facility] CenterThyroid Stimulating Hormone (TSH) 2017-12-23 22:39:00* Test Item Value Reference Range Interpretation Comments Thyroid Stimulating Hormone (TSH) (test code = 72587-2) 0.865 0.350-4.940 [facility] CenterThyroid Stimulating Hormone (TSH) 2017-12-23 22:39:00* Test Item Value Reference Range Interpretation Comments Thyroid Stimulating Hormone (TSH) (test code = 88790-7) 0.865 0.350-4.940 [facility] CenterThyroid Stimulating Hormone (TSH) 2017-12-23 22:39:00* Test Item Value Reference Range Interpretation Comments Thyroid Stimulating Hormone (TSH) (test code = 50082-5) 0.865 0.350-4.940 [facility] CenterUrine WMA5151-35-31 22:23:00* Test Item Value Reference Range Interpretation Comments Urine WBC (test code = 5821-4) 0-5 0-5 [facility] CenterUrine GZQ7678-61-08 22:23:00* Test Item Value Reference Range Interpretation Comments Urine RBC (test code = 35258-2) 0-5 0-5 [facility] CenterUrine Weqxmsil9478-67-43 22:23:00* Test Item Value Reference Range Interpretation Comments Urine Bacteria (test code = 04838-3) RARE NONE [facility] CenterUrine Epithelial Uuutt8747-37-13 22:23:00 * Test Item Value Reference Range Interpretation Comments Urine Epithelial Cells (test code = 29827-3) RARE NONE [facility] CenterUrine Bffrm0128-05-51 22:04:00* Test Item Value Reference Range Interpretation Comments Urine Color (test code = 5778-6) YELLOW YELLOW [facility] CenterUrine Tcchmvt3757-69-22 22:04:00* Test Item Value Reference Range Interpretation Comments Urine Clarity (test code = 35193-0) CLEAR CLEAR [facility] CenterUrine Specific Xodaoiy9483-24-25 22:04:00 * Test Item Value Reference Range Interpretation Comments Urine Specific [place] (test code = 5811-5) 1.010 1.010-1.02 5 [facility] CenterUrine zK2923-80-79 22:04:00* Test Item Value Reference Range Interpretation Comments Urine pH (test code = 13801-1) 6 5-7 [facility] CenterUrine Leukocyte Tmihooiv2296-63-52 22:04:00* Test Item Value Reference Range Interpretation Comments Urine Leukocyte Esterase (test code = 5799-2) NEGATIVE NEGATIVE [facility] CenterUrine Sfmfuam9601-68-69 22:04:00* Test Item Value Reference Range Interpretation Comments Urine Nitrite (test code = 08192-1) NEGATIVE NEGATIVE [facility] CenterUrine Nzvtsxq7731-40-49 22:04:00* Test Item Value Reference Range Interpretation Comments Urine Protein (test code = 5804-0) NEGATIVE NEGATIVE [facility] CenterUrine Glucose (UA)2017-12-23 22:04:00* Test Item Value Reference Range Interpretation Comments Urine Glucose (UA) (test code = 2349-9) 3+ NEGATIVE H [facility] CenterUrine Qmvibqs8487-02-51 22:04:00* Test Item Value Reference Range Interpretation Comments Urine Ketones (test code = 97644-1) NEGATIVE NEGATIVE [facility] CenterUrine Ofkviyxrcqlp8557-45-16 22:04:00* Test Item Value Reference Range Interpretation Comments Urine Urobilinogen (test code = 25528-0) 0.2 0.2-1 [facility] CenterUrine Felkynkfr4467-20-28 22:04:00* Test Item Value Reference Range Interpretation Comments Urine Bilirubin (test code = 1978-6) NEGATIVE NEGATIVE [facility] CenterUrine Fsdqk7329-87-59 22:04:00* Test Item Value Reference Range Interpretation Comments Urine Blood (test code = 02772-7) NEGATIVE NEGATIVE [facility] CenterMagnesium Gisce4242-54-15 22:03:00* Test Item Value Reference Range Interpretation Comments Magnesium Level (test code = 29754-0) 1.8 1.3-2.1 [facility] CenterProthrombin Mplo8499-97-61 21:58:00* Test Item Value Reference Range Interpretation Comments Prothrombin Time (test code = 5902-2) 13.6 11.9-14.5 [facility] CenterProthromb Time International Ratio 2017-12-23 21:58:00* Test Item Value Reference Range Interpretation Comments Prothromb Time International Ratio (test code = 6301-6) 1.13 Oral Anticoagulant Therapy INR Values:1. Low Intensity Therapy 1.5 - 2.02 . Moderate Intensity Therapy 2.0 - 3.03. High Intensity Therapy(1) 2.5 - 3. 54. High Intensity Therapy(2) 3.0 - 4.05. Panic Value INR > 5.0 [facility] CenterActivated Partial Thromboplast Time 2017-12-23 21:58:00* Test Item Value Reference Range Interpretation Comments Activated Partial Thromboplast Time (test code = 14757-3) 23.8 23.8-35.5 [facility] CenterBlood Xtvszcz4973-42-98 00:04:00* Test Item Value Reference Range Interpretation Comments Blood Culture (test code = 54673950) NO GROWTH AFTER 5 DAYS, FINAL REPORT [facility] Ofhpaga6517-50-51 00:04:00* Test Item Value Reference Range Interpretation Comments Blood Culture (test code = 94512754) NO GROWTH AFTER 5 DAYS, [facility] Hdyveip3120-59-30 00:04:00* Test Item Value Reference Range Interpretation Comments Blood Culture (test code = 96999538) NO GROWTH AFTER 5 DAYS, FINAL REPORT [facility] Wtjjtab0318-45-90 00:04:00* Test Item Value Reference Range Interpretation Comments Blood Culture (test code = 55625454) NO GROWTH AFTER 5 DAYS, FINAL REPORT [facility] Djqaqpw8051-14-05 00:04:00* Test Item Value Reference Range Interpretation Comments Blood Culture (test code = 07335811) NO GROWTH AFTER 5 DAYS, FINAL REPORT [facility] Wpnvqeu3299-43-64 00:04:00* Test Item Value Reference Range Interpretation Comments Blood Culture (test code = 90290600) NO GROWTH AFTER 5 DAYS, FINAL REPORT [facility] Ymryfbj0797-74-91 00:04:00* Test Item Value Reference Range Interpretation Comments Blood Culture (test code = 86371268) NO GROWTH AFTER 5 DAYS, FINAL REPORT [facility] Souavhb2871-34-74 00:04:00* Test Item Value Reference Range Interpretation Comments Blood Culture (test code = 04026913) NO GROWTH AFTER 5 DAYS, FINAL REPORT [facility] Iibqdhk4837-70-16 00:04:00* Test Item Value Reference Range Interpretation Comments Blood Culture (test code = 27057932) NO GROWTH AFTER 5 DAYS, [facility] Iacyh3480-64-99 00:58:00* Test Item Value Reference Range Interpretation Comments Sodium Level (test code = 2951-2) 137 136-145 [facility] CenterPotassium Qddab3097-95-33 00:58:00* Test Item Value Reference Range Interpretation Comments Potassium Level (test code = 2823-3) 4.1 3.5-5.1 [facility] CenterChloride Jbwxz5447-31-22 00:58:00* Test Item Value Reference Range Interpretation Comments Chloride Level (test code = 2075-0) 105 98-107 [facility] CenterCarbon Dioxide Wttww2881-76-76 00:58:00* Test Item Value Reference Range Interpretation Comments Carbon Dioxide Level (test code = 2028-9) 21 22-29 L [facility] CenterAnion Acb7594-36-19 00:58:00* Test Item Value Reference Range Interpretation Comments Anion Gap (test code = 71515-9) 15.1 8-16 [facility] CenterBlood Urea Sgntrajb1403-63-74 00:58:00* Test Item Value Reference Range Interpretation Comments Blood Urea Nitrogen (test code = 3094-0) 37 7-26 H [facility] CenterCreatinine2018-03-22 00:58:00* Test Item Value Reference Range Interpretation Comments Creatinine (test code = 2160-0) 1.54 0.57-1.11 H [facility] CenterBUN/Creatinine Vcteh3075-35-89 00:58:00* Test Item Value Reference Range Interpretation Comments BUN/Creatinine Ratio (test code = 3097-3) 24 6-25 [facility] CenterEstimat Glomerular Filtration Rate 2017-10-12 00:58:00* Test Item Value Reference Range Interpretation Comments Estimat Glomerular Filtration Rate (test code = 24572-8) 34 >60 L Ranges were taken from the National Kidney Disease Education Program and the Jenise unc healthal Kidney Foundation literature.Reference ranges:60 or greater: Xwwzwr61-94 ( for 3 consecutive months): Chronic kidney disease 15 or less: Kidney failureMemorial Hermann–[facility] Medical CenterGlucose Fjpyb9926-64-21 00:58:00* Test Item Value Reference Range Interpretation Comments Glucose Level (test code = MWQ9323) 286 74-118 H [facility] CenterCalcium Fkcbe7385-47-76 00:58:00* Test Item Value Reference Range Interpretation Comments Calcium Level (test code = 64094-1) 8.7 8.4-10.2 [facility] CenterMagnesium Sqoju5759-71-39 00:58:00* Test Item Value Reference Range Interpretation Comments Magnesium Level (test code = 81176-3) 1.6 1.3-2.1 [facility] CenterTotal Zyyepflbb8830-54-10 00:58:00* Test Item Value Reference Range Interpretation Comments Total Bilirubin (test code = 1975-2) 0.3 0.2-1.2 [facility] CenterAspartate Amino Transf (AST/SGOT) 2017-10-12 00:58:00* Test Item Value Reference Range Interpretation Comments Aspartate Amino Transf (AST/SGOT) (test code = Aspartate Amino Transf (AST/SGOT)) 22 5-34 [facility] CenterAlanine Aminotransferase (ALT/SGPT) 2017-10-12 00:58:00* Test Item Value Reference Range Interpretation Comments Alanine Aminotransferase (ALT/SGPT) (test code = 1742-6) 24 0-55 [facility] CenterTotal Ebgnurd2669-95-97 00:58:00* Test Item Value Reference Range Interpretation Comments Total Protein (test code = 2885-2) 6.5 6.5-8.1 [facility] CenterAlbumin2018-03-22 00:58:00* Test Item Value Reference Range Interpretation Comments Albumin (test code = 1751-7) 3.2 3.5-5.0 L [facility] CenterGlobulin2018-03-22 00:58:00* Test Item Value Reference Range Interpretation Comments Globulin (test code = 54267-8) 3.3 2.3-3.5 [facility] CenterAlbumin/Globulin Sajji4838-02-03 00:58:00 * Test Item Value Reference Range Interpretation Comments Albumin/Globulin Ratio (test code = 1759-0) 1.0 0.8-2.0 [facility] CenterAlkaline Zahbrxulimd9534-97-94 00:58:00* Test Item Value Reference Range Interpretation Comments Alkaline Phosphatase (test code = 6768-6) 69 40-150 [facility] CenterB-Type Natriuretic Asschva2342-04-45 00:58:00* Test Item Value Reference Range Interpretation Comments B-Type Natriuretic Peptide (test code = 21778-3) 46.4 0-100 [facility] CenterCreatine Dgvhkz4048-15-45 00:58:00* Test Item Value Reference Range Interpretation Comments Creatine Kinase (test code = 2157-6) 86 29-168 [facility] CenterCreatine Kinase YD9180-19-20 00:58:00* Test Item Value Reference Range Interpretation Comments Creatine Kinase MB (test code = 18910-6) 3.00 0-5.0 [facility] CenterTroponin F1131-64-30 00:58:00* Test Item Value Reference Range Interpretation Comments Troponin I (test code = VAH6854) -0.001 0-0.300 [facility] Vtefv4330-88-80 00:58:00* Test Item Value Reference Range Interpretation Comments Sodium Level (test code = 2951-2) 137 136-145 [facility] CenterPotassium Yyzjx3379-05-76 00:58:00* Test Item Value Reference Range Interpretation Comments Potassium Level (test code = 2823-3) 4.1 3.5-5.1 [facility] CenterChloride Rxrgb3873-33-21 00:58:00* Test Item Value Reference Range Interpretation Comments Chloride Level (test code = 2075-0) 105 98-107 [facility] CenterCarbon Dioxide Ijrnh2146-88-43 00:58:00* Test Item Value Reference Range Interpretation Comments Carbon Dioxide Level (test code = 2028-9) 21 22-29 L [facility] CenterAnion Khd0698-74-82 00:58:00* Test Item Value Reference Range Interpretation Comments Anion Gap (test code = 27865-5) 15.1 8-16 [facility] CenterBlood Urea Aqzntjkx3916-32-32 00:58:00* Test Item Value Reference Range Interpretation Comments Blood Urea Nitrogen (test code = 3094-0) 37 7-26 H [facility] CenterCreatinine2018-03-22 00:58:00* Test Item Value Reference Range Interpretation Comments Creatinine (test code = 2160-0) 1.54 0.57-1.11 H [facility] CenterBUN/Creatinine Ccisb1236-01-04 00:58:00* Test Item Value Reference Range Interpretation Comments BUN/Creatinine Ratio (test code = 3097-3) 24 6-25 [facility] [facility] CenterEstimat Glomerular Filtration Rate 2017-10-12 00:58:00* Test Item Value Reference Range Interpretation Comments Estimat Glomerular Filtration Rate (test code = 14174-1) 34 >60 L Ranges were taken from the National Kidney Disease Education Program and the [employer] literature.Reference ranges:60 or greater: Ssrmhn69-16 ( for 3 consecutive months): Chronic kidney disease 15 or less: Kidney failureMem[facility]ann–[facility] CenterGlucose Yadjh2596-06-29 00:58:00* Test Item Value Reference Range Interpretation Comments Glucose Level (test code = LOM8461) 286 74-118 H [facility] CenterCalcium Zmrie5332-84-35 00:58:00* Test Item Value Reference Range Interpretation Comments Calcium Level (test code = 97868-9) 8.7 8.4-10.2 [facility] CenterMagnesium Vqujm4690-91-97 00:58:00* Test Item Value Reference Range Interpretation Comments Magnesium Level (test code = 18561-3) 1.6 1.3-2.1 [facility] CenterTotal Fasvtwjbc6036-43-29 00:58:00* Test Item Value Reference Range Interpretation Comments Total Bilirubin (test code = 1975-2) 0.3 0.2-1.2 [facility] CenterAspartate Amino Transf (AST/SGOT) 2017-10-12 00:58:00* Test Item Value Reference Range Interpretation Comments Aspartate Amino Transf (AST/SGOT) (test code = Aspartate Amino Transf (AST/SGOT)) 22 5-34 [facility] CenterAlanine Aminotransferase (ALT/SGPT) 2017-10-12 00:58:00* Test Item Value Reference Range Interpretation Comments Alanine Aminotransferase (ALT/SGPT) (test code = 1742-6) 24 0-55 [facility] CenterTotal Pmsoaqo3442-36-03 00:58:00* Test Item Value Reference Range Interpretation Comments Total Protein (test code = 2885-2) 6.5 6.5-8.1 [facility] CenterAlbumin2018-03-22 00:58:00* Test Item Value Reference Range Interpretation Comments Albumin (test code = 1751-7) 3.2 3.5-5.0 L [facility] CenterGlobulin2018-03-22 00:58:00* Test Item Value Reference Range Interpretation Comments Globulin (test code = 85068-8) 3.3 2.3-3.5 [facility] CenterAlbumin/Globulin Abynx0918-07-13 00:58:00 * Test Item Value Reference Range Interpretation Comments Albumin/Globulin Ratio (test code = 1759-0) 1.0 0.8-2.0 [facility] CenterAlkaline Srzkzrhoxwi7251-30-47 00:58:00* Test Item Value Reference Range Interpretation Comments Alkaline Phosphatase (test code = 6768-6) 69 40-150 [facility] CenterB-Type Natriuretic Wfcgxoo3295-08-06 00:58:00* Test Item Value Reference Range Interpretation Comments B-Type Natriuretic Peptide (test code = 62308-1) 46.4 0-100 [facility] CenterCreatine Grzopn1893-37-89 00:58:00* Test Item Value Reference Range Interpretation Comments Creatine Kinase (test code = 2157-6) 86 29-168 [facility] CenterCreatine Kinase UI9588-42-53 00:58:00* Test Item Value Reference Range Interpretation Comments Creatine Kinase MB (test code = 61260-0) 3.00 0-5.0 [facility] CenterTroponin T3153-87-95 00:58:00* Test Item Value Reference Range Interpretation Comments Troponin I (test code = YPJ7270) -0.001 0-0.300 [facility] Ehros7756-66-41 00:58:00* Test Item Value Reference Range Interpretation Comments Sodium Level (test code = 2951-2) 137 136-145 [facility] CenterPotassium Pdzah6357-84-01 00:58:00* Test Item Value Reference Range Interpretation Comments Potassium Level (test code = 2823-3) 4.1 3.5-5.1 [facility] CenterChloride Njgwt9591-23-25 00:58:00* Test Item Value Reference Range Interpretation Comments Chloride Level (test code = 2075-0) 105 98-107 [facility] CenterCarbon Dioxide Iystk6230-52-36 00:58:00* Test Item Value Reference Range Interpretation Comments Carbon Dioxide Level (test code = 2028-9) 21 22-29 L [facility] CenterAnion Vfz8831-13-35 00:58:00* Test Item Value Reference Range Interpretation Comments Anion Gap (test code = 75996-4) 15.1 8-16 [facility] CenterBlood Urea Kukagsvk1707-24-16 00:58:00* Test Item Value Reference Range Interpretation Comments Blood Urea Nitrogen (test code = 3094-0) 37 7-26 H [facility] CenterCreatinine2018-03-22 00:58:00* Test Item Value Reference Range Interpretation Comments Creatinine (test code = 2160-0) 1.54 0.57-1.11 H [facility] CenterBUN/Creatinine Yytne1058-52-36 00:58:00* Test Item Value Reference Range Interpretation Comments BUN/Creatinine Ratio (test code = 3097-3) 24 6-25 [facility] CenterEstimat Glomerular Filtration Rate 2017-10-12 00:58:00* Test Item Value Reference Range Interpretation Comments Estimat Glomerular Filtration Rate (test code = 29617-3) 34 >60 L Ranges were taken from the National Kidney Disease Education Program and the [employer] literature.Reference ranges:60 or greater: Bafmhs49-60 ( for 3 consecutive months): Chronic kidney disease 15 or less: Kidney failureMemorial Hermann–[facility] Medical CenterGlucose Fnbnt2029-41-02 00:58:00* Test Item Value Reference Range Interpretation Comments Glucose Level (test code = XIH9370) 286 74-118 H [facility] CenterCalcium Fivdl2207-94-69 00:58:00* Test Item Value Reference Range Interpretation Comments Calcium Level (test code = 22140-9) 8.7 8.4-10.2 [facility] CenterMagnesium Xarag6283-49-18 00:58:00* Test Item Value Reference Range Interpretation Comments Magnesium Level (test code = 94593-5) 1.6 1.3-2.1 [facility] CenterTotal Qukknbrjz6380-29-87 00:58:00* Test Item Value Reference Range Interpretation Comments Total Bilirubin (test code = 1975-2) 0.3 0.2-1.2 [facility] CenterAspartate Amino Transf (AST/SGOT) 2017-10-12 00:58:00* Test Item Value Reference Range Interpretation Comments Aspartate Amino Transf (AST/SGOT) (test code = Aspartate Amino Transf (AST/SGOT)) 22 5-34 [facility] CenterAlanine Aminotransferase (ALT/SGPT) 2017-10-12 00:58:00* Test Item Value Reference Range Interpretation Comments Alanine Aminotransferase (ALT/SGPT) (test code = 1742-6) 24 0-55 [facility] CenterTotal Gpwkgii4536-34-03 00:58:00* Test Item Value Reference Range Interpretation Comments Total Protein (test code = 2885-2) 6.5 6.5-8.1 [facility] CenterAlbumin2018-03-22 00:58:00* Test Item Value Reference Range Interpretation Comments Albumin (test code = 1751-7) 3.2 3.5-5.0 L [facility] CenterGlobulin2018-03-22 00:58:00* Test Item Value Reference Range Interpretation Comments Globulin (test code = 35702-1) 3.3 2.3-3.5 [facility] CenterAlbumin/Globulin Aocua8136-36-46 00:58:00 * Test Item Value Reference Range Interpretation Comments Albumin/Globulin Ratio (test code = 1759-0) 1.0 0.8-2.0 [facility] CenterAlkaline Kefajafoagl7791-46-40 00:58:00* Test Item Value Reference Range Interpretation Comments Alkaline Phosphatase (test code = 6768-6) 69 40-150 [facility] CenterB-Type Natriuretic Cqvaodf1608-10-09 00:58:00* Test Item Value Reference Range Interpretation Comments B-Type Natriuretic Peptide (test code = 93730-8) 46.4 0-100 [facility] CenterCreatine Opwqre3268-12-51 00:58:00* Test Item Value Reference Range Interpretation Comments Creatine Kinase (test code = 2157-6) 86 29-168 [facility] CenterCreatine Kinase AR7364-17-61 00:58:00* Test Item Value Reference Range Interpretation Comments Creatine Kinase MB (test code = 78957-3) 3.00 0-5.0 [facility] CenterTroponin M2103-24-86 00:58:00* Test Item Value Reference Range Interpretation Comments Troponin I (test code = UAU2161) -0.001 0-0.300 [facility] CenterLactic Acid Uoeep1848-31-50 00:40:00* Test Item Value Reference Range Interpretation Comments Lactic Acid Level (test code = Lactic Acid Level) 14.6 4.5- 19.8 [facility] CenterLactic Acid Sqqiu1070-81-16 00:40:00* Test Item Value Reference Range Interpretation Comments Lactic Acid Level (test code = Lactic Acid Level) 14.6 4.5- 19.8 [facility] CenterLactic Acid Hnmim6701-32-93 00:40:00* Test Item Value Reference Range Interpretation Comments Lactic Acid Level (test code = Lactic Acid Level) 14.6 4.5- 19.8 [facility] CenterLactic Acid Tgcad6654-96-77 00:40:00* Test Item Value Reference Range Interpretation Comments Lactic Acid Level (test code = Lactic Acid Level) 14.6 4.5- 19.8 [facility] CenterLactic Acid Hmtrp9412-84-90 00:40:00* Test Item Value Reference Range Interpretation Comments Lactic Acid Level (test code = Lactic Acid Level) 14.6 4.5- 19.8 [facility] CenterLactic Acid Qkcuy2582-54-75 00:40:00* Test Item Value Reference Range Interpretation Comments Lactic Acid Level (test code = Lactic Acid Level) 14.6 4.5- 19.8 [facility] CenterLactic Acid Tnlyy0809-87-61 00:40:00* Test Item Value Reference Range Interpretation Comments Lactic Acid Level (test code = Lactic Acid Level) 14.6 4.5- 19.8 [facility] CenterLactic Acid Btbuv3614-47-12 00:40:00* Test Item Value Reference Range Interpretation Comments Lactic Acid Level (test code = Lactic Acid Level) 14.6 4.5- 19.8 [facility] CenterUrine ZWW2568-52-61 00:38:00* Test Item Value Reference Range Interpretation Comments Urine WBC (test code = 5821-4) 0-5 0-5 [facility] CenterUrine GCL1923-23-05 00:38:00* Test Item Value Reference Range Interpretation Comments Urine RBC (test code = 59402-6) 0-5 0-5 [facility] CenterUrine Amwxafrq4409-72-00 00:38:00* Test Item Value Reference Range Interpretation Comments Urine Bacteria (test code = 98328-3) RARE NONE [facility] CenterUrine Epithelial Oztsa8456-22-89 00:38:00 * Test Item Value Reference Range Interpretation Comments Urine Epithelial Cells (test code = 15924-0) FEW NONE [facility] CenterUrine OOE2594-19-30 00:38:00* Test Item Value Reference Range Interpretation Comments Urine WBC (test code = 5821-4) 0-5 0-5 [facility] CenterUrine TJC6930-05-04 00:38:00* Test Item Value Reference Range Interpretation Comments Urine RBC (test code = 17345-4) 0-5 0-5 [facility] CenterUrine Cetkctsg9828-12-51 00:38:00* Test Item Value Reference Range Interpretation Comments Urine Bacteria (test code = 29737-8) RARE NONE [facility] CenterUrine Epithelial Zdvfm5265-48-71 00:38:00 * Test Item Value Reference Range Interpretation Comments Urine Epithelial Cells (test code = 01333-3) FEW NONE [facility] CenterUrine UEM4434-64-95 00:38:00* Test Item Value Reference Range Interpretation Comments Urine WBC (test code = 5821-4) 0-5 0-5 [facility] CenterUrine XQQ4621-70-04 00:38:00* Test Item Value Reference Range Interpretation Comments Urine RBC (test code = 46436-5) 0-5 0-5 [facility] CenterUrine Oamncktd3318-10-76 00:38:00* Test Item Value Reference Range Interpretation Comments Urine Bacteria (test code = 14318-7) RARE NONE [facility] CenterUrine Epithelial Effvr7605-09-20 00:38:00 * Test Item Value Reference Range Interpretation Comments Urine Epithelial Cells (test code = 74590-0) FEW NONE [facility] CenterProthrombin Krqh8596-30-92 00:31:00* Test Item Value Reference Range Interpretation Comments Prothrombin Time (test code = 5902-2) 12.5 11.9-14.5 [facility] CenterProthromb Time International Ratio 2017-10-12 00:31:00* Test Item Value Reference Range Interpretation Comments Prothromb Time International Ratio (test code = 6301-6) 1.01 Oral Anticoagulant Therapy INR Values:1. Low Intensity Therapy 1.5 - 2.02 . Moderate Intensity Therapy 2.0 - 3.03. High Intensity Therapy(1) 2.5 - 3. 54. High Intensity Therapy(2) 3.0 - 4.05. Panic Value INR > 5.0 [facility] CenterActivated Partial Thromboplast Time 2017-10-12 00:31:00* Test Item Value Reference Range Interpretation Comments Activated Partial Thromboplast Time (test code = 23107-5) 17.7 23.8-35.5 L [facility] CenterProthrombin Whri4116-25-78 00:31:00* Test Item Value Reference Range Interpretation Comments Prothrombin Time (test code = 5902-2) 12.5 11.9-14.5 [facility] CenterProthromb Time International Ratio 2017-10-12 00:31:00* Test Item Value Reference Range Interpretation Comments Prothromb Time International Ratio (test code = 6301-6) 1.01 Oral Anticoagulant Therapy INR Values:1. Low Intensity Therapy 1.5 - 2.02 . Moderate Intensity Therapy 2.0 - 3.03. High Intensity Therapy(1) 2.5 - 3. 54. High Intensity Therapy(2) 3.0 - 4.05. Panic Value INR > 5.0 [facility] CenterActivated Partial Thromboplast Time 2017-10-12 00:31:00* Test Item Value Reference Range Interpretation Comments Activated Partial Thromboplast Time (test code = 52358-1) 17.7 23.8-35.5 L [facility] CenterProthrombin Fhdm8581-18-23 00:31:00* Test Item Value Reference Range Interpretation Comments Prothrombin Time (test code = 5902-2) 12.5 11.9-14.5 [facility] CenterProthromb Time International Ratio 2017-10-12 00:31:00* Test Item Value Reference Range Interpretation Comments Prothromb Time International Ratio (test code = 6301-6) 1.01 Oral Anticoagulant Therapy INR Values:1. Low Intensity Therapy 1.5 - 2.02 . Moderate Intensity Therapy 2.0 - 3.03. High Intensity Therapy(1) 2.5 - 3. 54. High Intensity Therapy(2) 3.0 - 4.05. Panic Value INR > 5.0 [facility] CenterActivated Partial Thromboplast Time 2017-10-12 00:31:00* Test Item Value Reference Range Interpretation Comments Activated Partial Thromboplast Time (test code = 25769-7) 17.7 23.8-35.5 L [facility] CenterWhite Blood Oymki1215-42-41 00:19:00* Test Item Value Reference Range Interpretation Comments White Blood Count (test code = 6690-2) 6.20 4.8-10.8 [facility] CenterRed Blood Srsmh7250-12-45 00:19:00* Test Item Value Reference Range Interpretation Comments Red Blood Count (test code = 789-8) 4.11 3.6-5.1 [facility] CenterHemoglobin2018-03-22 00:19:00* Test Item Value Reference Range Interpretation Comments Hemoglobin (test code = 96301-7) 10.7 12.0-16.0 L [facility] CenterHematocrit2018-03-22 00:19:00* Test Item Value Reference Range Interpretation Comments Hematocrit (test code = 4544-3) 35.7 34.2-44.1 [facility] CenterMean Corpuscular Almtmt6007-33-25 00:19:00* Test Item Value Reference Range Interpretation Comments Mean Corpuscular Volume (test code = 787-2) 86.9 81-99 [facility] CenterMean Corpuscular Fsssbkcyga0722-17-10 00:19:00* Test Item Value Reference Range Interpretation Comments Mean Corpuscular Hemoglobin (test code = 785-6) 26.0 28-32 L [facility] CenterMean Corpuscular Hemoglobin Concent 2017-10-12 00:19:00* Test Item Value Reference Range Interpretation Comments Mean Corpuscular Hemoglobin Concent (test code = 786-4) 30.0 31-35 L [facility] CenterRed Cell Distribution Tumgm5765-52-43 00:19:00* Test Item Value Reference Range Interpretation Comments Red Cell Distribution Width (test code = 08084-8) 15.1 11.7 -14.4 H [facility] CenterPlatelet Fjogz2595-73-28 00:19:00* Test Item Value Reference Range Interpretation Comments Platelet Count (test code = 777-3) 186 140-360 [facility] CenterNeutrophils (%) (Auto)2017-10-12 00:19:00 * Test Item Value Reference Range Interpretation Comments Neutrophils (%) (Auto) (test code = 71518-5) 65.3 38.7-80.0 [facility] CenterLymphocytes (%) (Auto)2017-10-12 00:19:00 * Test Item Value Reference Range Interpretation Comments Lymphocytes (%) (Auto) (test code = 736-9) 24.5 18.0-39.1 [facility] CenterMonocytes (%) (Auto)2017-10-12 00:19:00* Test Item Value Reference Range Interpretation Comments Monocytes (%) (Auto) (test code = 5905-5) 5.5 4.4-11.3 [facility] CenterEosinophils (%) (Auto)2017-10-12 00:19:00 * Test Item Value Reference Range Interpretation Comments Eosinophils (%) (Auto) (test code = 713-8) 2.7 0.0-6.0 [facility] CenterBasophils (%) (Auto)2017-10-12 00:19:00* Test Item Value Reference Range Interpretation Comments Basophils (%) (Auto) (test code = 706-2) 1.0 0.0-1.0 [facility] CenterIM GRANULOCYTES %2017-10-12 00:19:00* Test Item Value Reference Range Interpretation Comments IM GRANULOCYTES % (test code = IM GRANULOCYTES %) 1.0 0.0- 1.0 [facility] CenterNeutrophils # (Auto)2017-10-12 00:19:00* Test Item Value Reference Range Interpretation Comments Neutrophils # (Auto) (test code = 751-8) 4.1 2.1-6.9 [facility] CenterLymphocytes # (Auto)2017-10-12 00:19:00* Test Item Value Reference Range Interpretation Comments Lymphocytes # (Auto) (test code = 41282-9) 1.5 1.0-3.2 [facility] CenterMonocytes # (Auto)2017-10-12 00:19:00* Test Item Value Reference Range Interpretation Comments Monocytes # (Auto) (test code = 742-7) 0.3 0.2-0.8 [facility] CenterEosinophils # (Auto)2017-10-12 00:19:00* Test Item Value Reference Range Interpretation Comments Eosinophils # (Auto) (test code = 711-2) 0.2 0.0-0.4 [facility] CenterBasophils # (Auto)2017-10-12 00:19:00* Test Item Value Reference Range Interpretation Comments Basophils # (Auto) (test code = 704-7) 0.1 0.0-0.1 [facility] CenterAbsolute Immature Granulocyte (auto 2017-10-12 00:19:00* Test Item Value Reference Range Interpretation Comments Absolute Immature Granulocyte (auto (joseph t code = Absolute Immature Granulocyte (auto) 0.06 0-0.1 [facility] CenterUrine Mupmm7995-72-78 00:19:00* Test Item Value Reference Range Interpretation Comments Urine Color (test code = 5778-6) YELLOW YELLOW [facility] CenterUrine Ggxqvda7905-90-56 00:19:00* Test Item Value Reference Range Interpretation Comments Urine Clarity (test code = 54520-6) CLEAR CLEAR [facility] Specific Aezexiy9408-28-96 00:19:00 * Test Item Value Reference Range Interpretation Comments Urine Specific [place] (test code = 5811-5) 1.020 1.010-1.02 5 [facility] CenterUrine iT5484-06-11 00:19:00* Test Item Value Reference Range Interpretation Comments Urine pH (test code = 49809-8) 5 5-7 [facility] Leukocyte Bycisqtz9988-59-44 00:19:00* Test Item Value Reference Range Interpretation Comments Urine Leukocyte Esterase (test code = 5799-2) NEGATIVE NEGATIVE [facility] Cvgwseg8387-17-76 00:19:00* Test Item Value Reference Range Interpretation Comments Urine Nitrite (test code = 64840-9) NEGATIVE NEGATIVE [facility] Uuzyjrb8504-29-45 00:19:00* Test Item Value Reference Range Interpretation Comments Urine Protein (test code = 5804-0) NEGATIVE NEGATIVE [facility] Glucose (UA)2017-10-12 00:19:00* Test Item Value Reference Range Interpretation Comments Urine Glucose (UA) (test code = 2349-9) 3+ NEGATIVE H [facility] CenterUrine Dryttlr1641-24-81 00:19:00* Test Item Value Reference Range Interpretation Comments Urine Ketones (test code = 26318-6) NEGATIVE NEGATIVE [facility] CenterUrine Kybmnbylqigu1666-32-40 00:19:00* Test Item Value Reference Range Interpretation Comments Urine Urobilinogen (test code = 06162-4) 0.2 0.2-1 [facility] CenterUrine Wowrchzwv2405-31-19 00:19:00* Test Item Value Reference Range Interpretation Comments Urine Bilirubin (test code = 1978-6) NEGATIVE NEGATIVE [facility] CenterUrine Tnlvw8871-64-56 00:19:00* Test Item Value Reference Range Interpretation Comments Urine Blood (test code = 70039-6) 1+ NEGATIVE H [facility] CenterWhite Blood Ykwzq4525-76-00 00:19:00* Test Item Value Reference Range Interpretation Comments White Blood Count (test code = 6690-2) 6.20 4.8-10.8 [facility] CenterRed Blood Oseht3150-07-22 00:19:00* Test Item Value Reference Range Interpretation Comments Red Blood Count (test code = 789-8) 4.11 3.6-5.1 [facility] CenterHemoglobin2018-03-22 00:19:00* Test Item Value Reference Range Interpretation Comments Hemoglobin (test code = 69673-1) 10.7 12.0-16.0 L [facility] CenterHematocrit2018-03-22 00:19:00* Test Item Value Reference Range Interpretation Comments Hematocrit (test code = 4544-3) 35.7 34.2-44.1 [facility] CenterMean Corpuscular Svuarh0076-49-18 00:19:00* Test Item Value Reference Range Interpretation Comments Mean Corpuscular Volume (test code = 787-2) 86.9 81-99 [facility] CenterMean Corpuscular Yklrfgnbms9487-11-32 00:19:00* Test Item Value Reference Range Interpretation Comments Mean Corpuscular Hemoglobin (test code = 785-6) 26.0 28-32 L [facility] CenterMean Corpuscular Hemoglobin Concent 2017-10-12 00:19:00* Test Item Value Reference Range Interpretation Comments Mean Corpuscular Hemoglobin Concent (test code = 786-4) 30.0 31-35 L [facility] CenterRed Cell Distribution Vizgf6470-29-20 00:19:00* Test Item Value Reference Range Interpretation Comments Red Cell Distribution Width (test code = 54396-4) 15.1 11.7 -14.4 H [facility] CenterPlatelet Qfxmw5618-85-97 00:19:00* Test Item Value Reference Range Interpretation Comments Platelet Count (test code = 777-3) 186 140-360 [facility] CenterNeutrophils (%) (Auto)2017-10-12 00:19:00 * Test Item Value Reference Range Interpretation Comments Neutrophils (%) (Auto) (test code = 63976-1) 65.3 38.7-80.0 [facility] CenterLymphocytes (%) (Auto)2017-10-12 00:19:00 * Test Item Value Reference Range Interpretation Comments Lymphocytes (%) (Auto) (test code = 736-9) 24.5 18.0-39.1 [facility] CenterMonocytes (%) (Auto)2017-10-12 00:19:00* Test Item Value Reference Range Interpretation Comments Monocytes (%) (Auto) (test code = 5905-5) 5.5 4.4-11.3 [facility] CenterEosinophils (%) (Auto)2017-10-12 00:19:00 * Test Item Value Reference Range Interpretation Comments Eosinophils (%) (Auto) (test code = 713-8) 2.7 0.0-6.0 [facility] CenterBasophils (%) (Auto)2017-10-12 00:19:00* Test Item Value Reference Range Interpretation Comments Basophils (%) (Auto) (test code = 706-2) 1.0 0.0-1.0 [facility] CenterIM GRANULOCYTES %2017-10-12 00:19:00* Test Item Value Reference Range Interpretation Comments IM GRANULOCYTES % (test code = IM GRANULOCYTES %) 1.0 0.0- 1.0 [facility] CenterNeutrophils # (Auto)2017-10-12 00:19:00* Test Item Value Reference Range Interpretation Comments Neutrophils # (Auto) (test code = 751-8) 4.1 2.1-6.9 [facility] CenterLymphocytes # (Auto)2017-10-12 00:19:00* Test Item Value Reference Range Interpretation Comments Lymphocytes # (Auto) (test code = 84219-8) 1.5 1.0-3.2 [facility] CenterMonocytes # (Auto)2017-10-12 00:19:00* Test Item Value Reference Range Interpretation Comments Monocytes # (Auto) (test code = 742-7) 0.3 0.2-0.8 [facility] CenterEosinophils # (Auto)2017-10-12 00:19:00* Test Item Value Reference Range Interpretation Comments Eosinophils # (Auto) (test code = 711-2) 0.2 0.0-0.4 [facility] CenterBasophils # (Auto)2017-10-12 00:19:00* Test Item Value Reference Range Interpretation Comments Basophils # (Auto) (test code = 704-7) 0.1 0.0-0.1 [facility] CenterAbsolute Immature Granulocyte (auto 2017-10-12 00:19:00* Test Item Value Reference Range Interpretation Comments Absolute Immature Granulocyte (auto (joseph t code = Absolute Immature Granulocyte (auto) 0.06 0-0.1 [facility] Albfx9542-88-75 00:19:00* Test Item Value Reference Range Interpretation Comments Urine Color (test code = 5778-6) YELLOW YELLOW [facility] Mbirbig7788-61-23 00:19:00* Test Item Value Reference Range Interpretation Comments Urine Clarity (test code = 95517-1) CLEAR CLEAR [facility] CenterU[facility] Specific Mwukncv8689-44-47 00:19:00 * Test Item Value Reference Range Interpretation Comments Urine Specific [place] (test code = 5811-5) 1.020 1.010-1.02 5 [facility] CenterU[facility] cE7484-25-44 00:19:00* Test Item Value Reference Range Interpretation Comments Urine pH (test code = 67788-7) 5 5-7 [facility] Leukocyte Tvatiwxf5864-53-19 00:19:00* Test Item Value Reference Range Interpretation Comments Urine Leukocyte Esterase (test code = 5799-2) NEGATIVE NEGATIVE [facility] CenterU[facility] Fsuynqz0123-91-95 00:19:00* Test Item Value Reference Range Interpretation Comments Urine Nitrite (test code = 33284-1) NEGATIVE NEGATIVE [facility] CenterU[facility] Hmueapq4821-34-21 00:19:00* Test Item Value Reference Range Interpretation Comments Urine Protein (test code = 5804-0) NEGATIVE NEGATIVE [facility] CenterU[facility] Glucose (UA)2017-10-12 00:19:00* Test Item Value Reference Range Interpretation Comments Urine Glucose (UA) (test code = 2349-9) 3+ NEGATIVE H [facility] CenterU[facility] Ggvgaqd8361-14-51 00:19:00* Test Item Value Reference Range Interpretation Comments Urine Ketones (test code = 87712-4) NEGATIVE NEGATIVE [facility] CenterU[facility] Ansjayifjifl0179-11-43 00:19:00* Test Item Value Reference Range Interpretation Comments Urine Urobilinogen (test code = 64278-7) 0.2 0.2-1 [facility] CenterU[facility] Zmooqhswg4084-65-32 00:19:00* Test Item Value Reference Range Interpretation Comments Urine Bilirubin (test code = 1978-6) NEGATIVE NEGATIVE [facility] Bbxsk6746-61-22 00:19:00* Test Item Value Reference Range Interpretation Comments Urine Blood (test code = 80991-2) 1+ NEGATIVE H [facility] CenterWhite Blood Qmoxt4833-26-82 00:19:00* Test Item Value Reference Range Interpretation Comments White Blood Count (test code = 6690-2) 6.20 4.8-10.8 [facility] CenterRed Blood Fkgou9444-02-58 00:19:00* Test Item Value Reference Range Interpretation Comments Red Blood Count (test code = 789-8) 4.11 3.6-5.1 [facility] CenterHemoglobin2018-03-22 00:19:00* Test Item Value Reference Range Interpretation Comments Hemoglobin (test code = 26851-6) 10.7 12.0-16.0 L [facility] CenterHematocrit2018-03-22 00:19:00* Test Item Value Reference Range Interpretation Comments Hematocrit (test code = 4544-3) 35.7 34.2-44.1 [facility] CenterMean Corpuscular Hjipcc5805-93-96 00:19:00* Test Item Value Reference Range Interpretation Comments Mean Corpuscular Volume (test code = 787-2) 86.9 81-99 [facility] CenterMean Corpuscular Kshbaqyqic0144-45-52 00:19:00* Test Item Value Reference Range Interpretation Comments Mean Corpuscular Hemoglobin (test code = 785-6) 26.0 28-32 L [facility] CenterMean Corpuscular Hemoglobin Concent 2017-10-12 00:19:00* Test Item Value Reference Range Interpretation Comments Mean Corpuscular Hemoglobin Concent (test code = 786-4) 30.0 31-35 L [facility] CenterRed Cell Distribution Ariri5335-11-24 00:19:00* Test Item Value Reference Range Interpretation Comments Red Cell Distribution Width (test code = 67289-8) 15.1 11.7 -14.4 H [facility] CenterPlatelet Yjalf5188-81-30 00:19:00* Test Item Value Reference Range Interpretation Comments Platelet Count (test code = 777-3) 186 140-360 [facility] CenterNeutrophils (%) (Auto)2017-10-12 00:19:00 * Test Item Value Reference Range Interpretation Comments Neutrophils (%) (Auto) (test code = 13362-1) 65.3 38.7-80.0 [facility] CenterLymphocytes (%) (Auto)2017-10-12 00:19:00 * Test Item Value Reference Range Interpretation Comments Lymphocytes (%) (Auto) (test code = 736-9) 24.5 18.0-39.1 [facility] CenterMonocytes (%) (Auto)2017-10-12 00:19:00* Test Item Value Reference Range Interpretation Comments Monocytes (%) (Auto) (test code = 5905-5) 5.5 4.4-11.3 [facility] CenterEosinophils (%) (Auto)2017-10-12 00:19:00 * Test Item Value Reference Range Interpretation Comments Eosinophils (%) (Auto) (test code = 713-8) 2.7 0.0-6.0 [facility] CenterBasophils (%) (Auto)2017-10-12 00:19:00* Test Item Value Reference Range Interpretation Comments Basophils (%) (Auto) (test code = 706-2) 1.0 0.0-1.0 [facility] CenterIM GRANULOCYTES %2017-10-12 00:19:00* Test Item Value Reference Range Interpretation Comments IM GRANULOCYTES % (test code = IM GRANULOCYTES %) 1.0 0.0- 1.0 [facility] CenterNeutrophils # (Auto)2017-10-12 00:19:00* Test Item Value Reference Range Interpretation Comments Neutrophils # (Auto) (test code = 751-8) 4.1 2.1-6.9 [facility] CenterLymphocytes # (Auto)2017-10-12 00:19:00* Test Item Value Reference Range Interpretation Comments Lymphocytes # (Auto) (test code = 06935-1) 1.5 1.0-3.2 [facility] CenterMonocytes # (Auto)2017-10-12 00:19:00* Test Item Value Reference Range Interpretation Comments Monocytes # (Auto) (test code = 742-7) 0.3 0.2-0.8 [facility] CenterEosinophils # (Auto)2017-10-12 00:19:00* Test Item Value Reference Range Interpretation Comments Eosinophils # (Auto) (test code = 711-2) 0.2 0.0-0.4 [facility] CenterBasophils # (Auto)2017-10-12 00:19:00* Test Item Value Reference Range Interpretation Comments Basophils # (Auto) (test code = 704-7) 0.1 0.0-0.1 [facility] CenterAbsolute Immature Granulocyte (auto 2017-10-12 00:19:00* Test Item Value Reference Range Interpretation Comments Absolute Immature Granulocyte (auto (joseph t code = Absolute Immature Granulocyte (auto) 0.06 0-0.1 [facility] CenterUrine Vhgyh5697-99-86 00:19:00* Test Item Value Reference Range Interpretation Comments Urine Color (test code = 5778-6) YELLOW YELLOW [facility] CenterUrine Gkbgtel4292-77-04 00:19:00* Test Item Value Reference Range Interpretation Comments Urine Clarity (test code = 46796-9) CLEAR CLEAR [facility] CenterUrine Specific Ryqzmve2432-62-55 00:19:00 * Test Item Value Reference Range Interpretation Comments Urine Specific [place] (test code = 5811-5) 1.020 1.010-1.02 5 [facility] CenterUrine yA6952-37-72 00:19:00* Test Item Value Reference Range Interpretation Comments Urine pH (test code = 23627-6) 5 5-7 [facility] CenterUrine Leukocyte Kzcgjyft1474-28-82 00:19:00* Test Item Value Reference Range Interpretation Comments Urine Leukocyte Esterase (test code = 5799-2) NEGATIVE NEGATIVE [facility] CenterUrine Otahifm2327-56-10 00:19:00* Test Item Value Reference Range Interpretation Comments Urine Nitrite (test code = 59344-6) NEGATIVE NEGATIVE [facility] CenterUrine Iwmlawu3259-95-17 00:19:00* Test Item Value Reference Range Interpretation Comments Urine Protein (test code = 5804-0) NEGATIVE NEGATIVE [facility] CenterUrine Glucose (UA)2017-10-12 00:19:00* Test Item Value Reference Range Interpretation Comments Urine Glucose (UA) (test code = 2349-9) 3+ NEGATIVE H [facility] CenterUrine Qajzlkp8418-92-36 00:19:00* Test Item Value Reference Range Interpretation Comments Urine Ketones (test code = 04236-6) NEGATIVE NEGATIVE [facility] CenterUrine Wyetodmawkjf4670-48-25 00:19:00* Test Item Value Reference Range Interpretation Comments Urine Urobilinogen (test code = 35882-2) 0.2 0.2-1 [facility] CenterUrine Yzdkzafyb5947-54-81 00:19:00* Test Item Value Reference Range Interpretation Comments Urine Bilirubin (test code = 1978-6) NEGATIVE NEGATIVE [facility] CenterU[facility] Ogqkz2455-24-04 00:19:00* Test Item Value Reference Range Interpretation Comments Urine Blood (test code = 84307-0) 1+ NEGATIVE H [facility] Caoleey1123-20-72 11:00:00* Test Item Value Reference Range Interpretation Comments Blood Culture (test code = 22800336) NO GROWTH AFTER 5 DAYS, FINAL REPORT [facility] Mteiuzf0892-39-90 11:00:00* Test Item Value Reference Range Interpretation Comments Blood Culture (test code = 23990272) NO GROWTH AFTER 5 DAYS, FINAL REPORT [facility] Fuqdfka6203-81-89 12:28:00* Test Item Value Reference Range Interpretation Comments Bedside Glucose (test code = 32460-6) 113 70-120 Meter ID: [id number] [facility] Glucose 2017-09-29 12:28:00* Test Item Value Reference Range Interpretation Comments Bedside Glucose (test code = 95753-2) 113 70-120 Meter ID: [id number] [facility] Glucose 2017-09-29 12:28:00* Test Item Value Reference Range Interpretation Comments Bedside Glucose (test code = 00532-3) 113 70-120 Meter ID: [id number] [facility] Glucose 2017-09-29 12:28:00* Test Item Value Reference Range Interpretation Comments Bedside Glucose (test code = 32148-3) 113 70-120 Meter ID: [id number] [facility] Glucose 2017-09-29 12:28:00* Test Item Value Reference Range Interpretation Comments Bedside Glucose (test code = 36755-9) 113 70-120 Meter ID: [id number] Health Tylerodium Level 2017-09-29 08:38:00* Test Item Value Reference Range Interpretation Comments Sodium Level (test code = 2951-2) 138 136-145 [facility] Zyoip2029-29-16 08:38:00* Test Item Value Reference Range Interpretation Comments Potassium Level (test code = 2823-3) 3.7 3.5-5.1 [facility] CenterChloride Lyehp2192-85-72 08:38:00* Test Item Value Reference Range Interpretation Comments Chloride Level (test code = 2075-0) 94 98-107 L [facility] CenterCarbon Dioxide Vkwrj5859-34-99 08:38:00* Test Item Value Reference Range Interpretation Comments Carbon Dioxide Level (test code = 2028-9) 29 22-29 [facility] CenterAnion Jgj4424-23-72 08:38:00* Test Item Value Reference Range Interpretation Comments Anion Gap (test code = 31666-9) 18.7 8-16 H [facility] CenterBlood Urea Kyvrnbgf0279-47-35 08:38:00* Test Item Value Reference Range Interpretation Comments Blood Urea Nitrogen (test code = 3094-0) 25 7-26 [facility] CenterCreatinine2018 08:38:00* Test Item Value Reference Range Interpretation Comments Creatinine (test code = 2160-0) 1.00 0.57-1.11 [facility] CenterBUN/Creatinine Cwpth2309-21-34 08:38:00* Test Item Value Reference Range Interpretation Comments BUN/Creatinine Ratio (test code = 3097-3) 25 6-25 [facility] CenterEstimat Glomerular Filtration Rate 2017-09-29 08:38:00* Test Item Value Reference Range Interpretation Comments Estimat Glomerular Filtration Rate (test code = 07756-1) 56 >60 L Ranges were taken from the National Kidney Disease Education Program and the Jenise [employer] healthal [employer] literature.Reference ranges:60 or greater: Bnezlq54-68 ( for 3 consecutive months): Chronic kidney disease 15 or less: Kidney failureMemorial Hermann–[facility] Medical CenterGlucose Wdaap0354-89-85 08:38:00* Test Item Value Reference Range Interpretation Comments Glucose Level (test code = ZFS3950) 290 74-118 H [facility] CenterCalcium Uhhvj5009-24-83 08:38:00* Test Item Value Reference Range Interpretation Comments Calcium Level (test code = 53014-5) 9.4 8.4-10.2 [facility]odium Cndxa1471-91-38 08:38:00* Test Item Value Reference Range Interpretation Comments Sodium Level (test code = 2951-2) 138 136-145 [facility] CenterPotassium Jvzbg7148-32-84 08:38:00* Test Item Value Reference Range Interpretation Comments Potassium Level (test code = 2823-3) 3.7 3.5-5.1 [facility] CenterChloride Rsjzq6837-50-36 08:38:00* Test Item Value Reference Range Interpretation Comments Chloride Level (test code = 2075-0) 94 98-107 L [facility] CenterCarbon Dioxide Otpxu3262-74-13 08:38:00* Test Item Value Reference Range Interpretation Comments Carbon Dioxide Level (test code = 2028-9) 29 22-29 [facility] CenterAnion Iod1394-75-69 08:38:00* Test Item Value Reference Range Interpretation Comments Anion Gap (test code = 33582-1) 18.7 8-16 H [facility] CenterBlood Urea Qgdkaips1025-58-60 08:38:00* Test Item Value Reference Range Interpretation Comments Blood Urea Nitrogen (test code = 3094-0) 25 7-26 [facility] CenterCreatinine2018 08:38:00* Test Item Value Reference Range Interpretation Comments Creatinine (test code = 2160-0) 1.00 0.57-1.11 [facility] CenterBUN/Creatinine Egkbm6103-58-49 08:38:00* Test Item Value Reference Range Interpretation Comments BUN/Creatinine Ratio (test code = 3097-3) 25 6-25 [facility] CenterEstimat Glomerular Filtration Rate 2017-09-29 08:38:00* Test Item Value Reference Range Interpretation Comments Estimat Glomerular Filtration Rate (test code = 02852-6) 56 >60 L Ranges were taken from the National Kidney Disease Education Program and the Jenise [employer] healthal [employer] literature.Reference ranges:60 or greater: Rzzxiz85-82 ( for 3 consecutive months): Chronic kidney disease 15 or less: Kidney failureMemorial Hermann–[facility] Medical CenterGlucose Ecmlz7746-42-86 08:38:00* Test Item Value Reference Range Interpretation Comments Glucose Level (test code = PYU5280) 290 74-118 H [facility] CenterCalcium Fhwmz7528-62-23 08:38:00* Test Item Value Reference Range Interpretation Comments Calcium Level (test code = 97525-1) 9.4 8.4-10.2 [facility] CenterArterial Blood kW4255-68-98 13:49:00* Test Item Value Reference Range Interpretation Comments Arterial Blood pH (test code = 2744-1) 7.46 7.31-7.41 H WAS CALLED TO RUN A BLOOD GAS FOR A PT ON ROOM AIR LAYING ON THE REGIONAL ACCOUNT DIRECTOR TABLE [facility] CenterArterial Blood Partial Pressure CO2 2017-09-28 13:49:00* Test Item Value Reference Range Interpretation Comments Arterial Blood Partial Pressure CO2 (test code = 2018-) 46 41-51 [facility] CenterArterial Blood Partial Pressure O2 2017-09-28 13:49:00* Test Item Value Reference Range Interpretation Comments Arterial Blood Partial Pressure O2 (test code = 2018-) 30 80-105 LL Results called/hand delivered to DR CLINTON LLAMAS at 1328 on 09/28/17 by Mckayla reyna. RB [place].[facility] CenterArterial Blood HCO3 2017-09-28 13:49:00* Test Item Value Reference Range Interpretation Comments Arterial Blood HCO3 (test code = 1960-4) 33 23-28 H [facility] CenterArterial Blood Base Zbvpge1340-40-22 13:49:00* Test Item Value Reference Range Interpretation Comments Arterial Blood Base Excess (test code = 1925-7) 9.0 -2-3 H [facility] CenterArterial Blood Oxygen Saturation 2017-09-28 13:49:00* Test Item Value Reference Range Interpretation Comments Arterial Blood Oxygen Saturation (test code = 2708-6) 60.0 95-98 L [facility] CenterArter[facility] Blood gB9320-74-99 13:49:00* Test Item Value Reference Range Interpretation Comments Arterial Blood pH (test code = 2744-1) 7.46 7.31-7.41 H WAS CALLED TO RUN A BLOOD GAS FOR A PT ON ROOM AIR LAYING ON THE REGIONAL ACCOUNT DIRECTOR TABLE [facility] CenterArterial Blood Partial Pressure CO2 2017-09-28 13:49:00* Test Item Value Reference Range Interpretation Comments Arterial Blood Partial Pressure CO2 (test code = 8) 46 41-51 [facility] CenterArterial Blood Partial Pressure O2 2017-09-28 13:49:00* Test Item Value Reference Range Interpretation Comments Arterial Blood Partial Pressure O2 (test code = 2019-02) 30 80-105 LL Results called/hand delivered to DR CLINTON LLAMAS at 1328 on 09/28/17 by Mckayla reyna. [place].[facility] CenterArterial Blood HCO3 2017-09-28 13:49:00* Test Item Value Reference Range Interpretation Comments Arterial Blood HCO3 (test code = 1960-4) 33 23-28 [facility] Rudhkd7940-31-41 13:49:00* Test Item Value Reference Range Interpretation Comments Arterial Blood Base Excess (test code = 1925-7) 9.0 -2-3 H [facility] CenterArterial Blood Oxygen Saturation 2017-09-28 13:49:00* Test Item Value Reference Range Interpretation Comments Arterial Blood Oxygen Saturation (test code = 2708-6) 60.0 95-98 L [facility] Blood rO3588-74-35 13:49:00* Test Item Value Reference Range Interpretation Comments Arterial Blood pH (test code = 2744-1) 7.46 7.31-7.41 H WAS CALLED TO RUN A BLOOD GAS FOR A PT ON ROOM AIR LAYING ON THE REGIONAL ACCOUNT DIRECTOR TABLE [facility] CenterArterial Blood Partial Pressure CO2 2017-09-28 13:49:00* Test Item Value Reference Range Interpretation Comments Arterial Blood Partial Pressure CO2 (test code = 2019-02) 46 41-51 [facility] CenterArterial Blood Partial Pressure O2 2017-09-28 13:49:00* Test Item Value Reference Range Interpretation Comments Arterial Blood Partial Pressure O2 (test code = 2018-8) 30 80-105 LL Results called/hand delivered to DR CLINTON LLAMAS at 1328 on 09/28/17 by Mckayla reyna. [place].[facility] CenterArterial Blood HCO3 2017-09-28 13:49:00* Test Item Value Reference Range Interpretation Comments Arterial Blood HCO3 (test code = 1960-4) 33 23-28 H [facility] CenterArter[facility] Blood Base Ksbxay6246-43-25 13:49:00* Test Item Value Reference Range Interpretation Comments Arterial Blood Base Excess (test code = 1925-7) 9.0 -2-3 H [facility] CenterArterial Blood Oxygen Saturation 2017-09-28 13:49:00* Test Item Value Reference Range Interpretation Comments Arterial Blood Oxygen Saturation (test code = 2708-6) 60.0 95-98 L [facility] Blood tD3729-94-80 13:49:00* Test Item Value Reference Range Interpretation Comments Arterial Blood pH (test code = 2744-1) 7.46 7.31-7.41 H WAS CALLED TO RUN A BLOOD GAS FOR A PT ON ROOM AIR LAYING ON THE REGIONAL ACCOUNT DIRECTOR TABLE [facility] CenterArterial Blood Partial Pressure CO2 2017-09-28 13:49:00* Test Item Value Reference Range Interpretation Comments Arterial Blood Partial Pressure CO2 (test code = 2018-8) 46 41-51 [facility] CenterArterial Blood Partial Pressure O2 2017-09-28 13:49:00* Test Item Value Reference Range Interpretation Comments Arterial Blood Partial Pressure O2 (test code = 2018-8) 30 80-105 LL Results called/hand delivered to DR CLINTON LLAMAS at 1328 on 09/28/17 by Mckayla reyna. [place].[facility] CenterArterial Blood HCO3 2017-09-28 13:49:00* Test Item Value Reference Range Interpretation Comments Arterial Blood HCO3 (test code = 1960-4) 33 23-28 H [facility] CenterArterial Blood Base Idvogs3581-47-91 13:49:00* Test Item Value Reference Range Interpretation Comments Arterial Blood Base Excess (test code = 1925-7) 9.0 -2-3 H [facility] CenterArterial Blood Oxygen Saturation 2017-09-28 13:49:00* Test Item Value Reference Range Interpretation Comments Arterial Blood Oxygen Saturation (test code = 2708-6) 60.0 95-98 L [facility] CenterArter[facility] Blood pW6544-80-60 13:49:00* Test Item Value Reference Range Interpretation Comments Arterial Blood pH (test code = 2744-1) 7.46 7.31-7.41 H WAS CALLED TO RUN A BLOOD GAS FOR A PT ON ROOM AIR LAYING ON THE REGIONAL ACCOUNT DIRECTOR TABLE [facility] CenterArterial Blood Partial Pressure CO2 2017-09-28 13:49:00* Test Item Value Reference Range Interpretation Comments Arterial Blood Partial Pressure CO2 (test code = 2019-02) 46 41-51 [facility] CenterArterial Blood Partial Pressure O2 2017-09-28 13:49:00* Test Item Value Reference Range Interpretation Comments Arterial Blood Partial Pressure O2 (test code = 2019-02) 30 80-105 LL Results called/hand delivered to DR CLINTON LLAMAS at 1328 on 09/28/17 by Mckayla reyna. RB [place].[facility] CenterArterial Blood HCO3 2017-09-28 13:49:00* Test Item Value Reference Range Interpretation Comments Arterial Blood HCO3 (test code = 1960-4) 33 23-28 H [facility] CenterArterial Blood Base Hgxcra9986-85-17 13:49:00* Test Item Value Reference Range Interpretation Comments Arterial Blood Base Excess (test code = 1925-7) 9.0 -2-3 H [facility] CenterAr[facility]ial Blood Oxygen Saturation 2017-09-28 13:49:00* Test Item Value Reference Range Interpretation Comments Arterial Blood Oxygen Saturation (test code = 2708-6) 60.0 95-98 L [facility] Blood iY5234-94-35 13:49:00* Test Item Value Reference Range Interpretation Comments Arterial Blood pH (test code = 2744-1) 7.46 7.31-7.41 H WAS CALLED TO RUN A BLOOD GAS FOR A PT ON ROOM AIR LAYING ON THE REGIONAL ACCOUNT DIRECTOR TABLE [facility] CenterArterial Blood Partial Pressure CO2 2017-09-28 13:49:00* Test Item Value Reference Range Interpretation Comments Arterial Blood Partial Pressure CO2 (test code = 2019-02) 46 41-51 [facility] CenterArterial Blood Partial Pressure O2 2017-09-28 13:49:00* Test Item Value Reference Range Interpretation Comments Arterial Blood Partial Pressure O2 (test code = 2018-8) 30 80-105 LL Results called/hand delivered to DR CLINTON LLAMAS at 1328 on 09/28/17 by Mckayla reyna. [place].[facility] CenterArterial Blood HCO3 2017-09-28 13:49:00* Test Item Value Reference Range Interpretation Comments Arterial Blood HCO3 (test code = 1960-4) 33 23-28 H [facility] CenterAr[facility]ial Blood Base Njhgio4067-22-15 13:49:00* Test Item Value Reference Range Interpretation Comments Arterial Blood Base Excess (test code = 1925-7) 9.0 -2-3 H [facility] CenterAr[facility]ial Blood Oxygen Saturation 2017-09-28 13:49:00* Test Item Value Reference Range Interpretation Comments Arterial Blood Oxygen Saturation (test code = 2708-6) 60.0 95-98 L [facility] Blood sD9339-89-74 13:49:00* Test Item Value Reference Range Interpretation Comments Arterial Blood pH (test code = 2744-1) 7.46 7.31-7.41 H WAS CALLED TO RUN A BLOOD GAS FOR A PT ON ROOM AIR LAYING ON THE REGIONAL ACCOUNT DIRECTOR TABLE [facility] CenterAr[facility]ial Blood Partial Pressure CO2 2017-09-28 13:49:00* Test Item Value Reference Range Interpretation Comments Arterial Blood Partial Pressure CO2 (test code = 2018-8) 46 41-51 [facility] CenterArterial Blood Partial Pressure O2 2017-09-28 13:49:00* Test Item Value Reference Range Interpretation Comments Arterial Blood Partial Pressure O2 (test code = 2019-8) 30 80-105 LL Results called/hand delivered to DR CLINTON LLAMAS at 1328 on 09/28/17 by Mckayla reyna. RB [place].[facility] CenterAr[facility]ial Blood HCO3 2017-09-28 13:49:00* Test Item Value Reference Range Interpretation Comments Arterial Blood HCO3 (test code = 1960-4) 33 23-28 H [facility] CenterAr[facility]ial Blood Base Sizvzq3780-03-15 13:49:00* Test Item Value Reference Range Interpretation Comments Arterial Blood Base Excess (test code = 1925-7) 9.0 -2-3 H [facility] Oxygen Saturation 2017-09-28 13:49:00* Test Item Value Reference Range Interpretation Comments Arterial Blood Oxygen Saturation (test code = 2708-6) 60.0 95-98 L [facility] Blood [id number] 13:49:00* Test Item Value Reference Range Interpretation Comments Arterial Blood pH (test code = 2744-1) 7.46 7.31-7.41 H WAS CALLED TO RUN A BLOOD GAS FOR A PT ON ROOM AIR LAYING ON THE REGIONAL ACCOUNT DIRECTOR TABLE [facility] CenterAr[facility] Partial Pressure CO2 2017-09-28 13:49:00* Test Item Value Reference Range Interpretation Comments Arterial Blood Partial Pressure CO2 (test code = 2018-) 46 41-51 [facility] CenterAr[facility] Blood Partial Pressure O2 2017-09-28 13:49:00* Test Item Value Reference Range Interpretation Comments Arterial Blood Partial Pressure O2 (test code = 2018-) 30 80-105 LL Results called/hand delivered to DR CLINTON LLAMAS at 1328 on 09/28/17 by Mckayla reyna. [place].[facility] Center[facility] Blood HCO3 2017-09-28 13:49:00* Test Item Value Reference Range Interpretation Comments Arterial Blood HCO3 (test code = 1960-4) 33 23-28 H [facility] CenterAr[facility] Blood Base [id number] 13:49:00* Test Item Value Reference Range Interpretation Comments Arterial Blood Base Excess (test code = 1925-7) 9.0 -2-3 H [facility] CenterAr[facility] Blood Oxygen Saturation 2017-09-28 13:49:00* Test Item Value Reference Range Interpretation Comments Arterial Blood Oxygen Saturation (test code = 2708-6) 60.0 95-98 L [facility] [id number] 13:49:00* Test Item Value Reference Range Interpretation Comments Arterial Blood pH (test code = 2744-1) 7.46 7.31-7.41 H WAS CALLED TO RUN A BLOOD GAS FOR A PT ON ROOM AIR LAYING ON THE REGIONAL ACCOUNT DIRECTOR TABLE [facility] CenterAr[facility] Blood Partial Pressure CO2 2017-09-28 13:49:00* Test Item Value Reference Range Interpretation Comments Arterial Blood Partial Pressure CO2 (test code = 2018-) 46 41-51 [facility] CenterAr[facility] Blood Partial Pressure O2 2017-09-28 13:49:00* Test Item Value Reference Range Interpretation Comments Arterial Blood Partial Pressure O2 (test code = 2019-02) 30 80-105 LL Results called/hand delivered to DR CLINTON LLAMAS at 1328 on 09/28/17 by Mckayla reyna. [place].[facility] Blood HCO3 2017-09-28 13:49:00* Test Item Value Reference Range Interpretation Comments Arterial Blood HCO3 (test code = 1960-4) 33 23-28 H [facility]Ar[facility] Blood Base [id number] 13:49:00* Test Item Value Reference Range Interpretation Comments Arterial Blood Base Excess (test code = 1925-7) 9.0 -2-3 H [facility] CenterAr[facility] Blood Oxygen Saturation 2017-09-28 13:49:00* Test Item Value Reference Range Interpretation Comments Arterial Blood Oxygen Saturation (test code = 2708-6) 60.0 95-98 L [facility] Blood [id number] 13:49:00* Test Item Value Reference Range Interpretation Comments Arterial Blood pH (test code = 2744-1) 7.46 7.31-7.41 H WAS CALLED TO RUN A BLOOD GAS FOR A PT ON ROOM AIR LAYING ON THE REGIONAL ACCOUNT DIRECTOR TABLE [facility]Ar[facility] Partial Pressure CO2 2017-09-28 13:49:00* Test Item Value Reference Range Interpretation Comments Arterial Blood Partial Pressure CO2 (test code = 2019-02) 46 41-51 [facility] CenterAr[facility] Blood Partial Pressure O2 2017-09-28 13:49:00* Test Item Value Reference Range Interpretation Comments Arterial Blood Partial Pressure O2 (test code = 2019-02) 30 80-105 LL Results called/hand delivered to DR CLINTON LLAMAS at 1328 on 09/28/17 by Mckayla reyna. [place].[facility] CenterAr[facility] Blood HCO3 2017-09-28 13:49:00* Test Item Value Reference Range Interpretation Comments Arterial Blood HCO3 (test code = 1960-4) 33 23-28 H [facility] Blood Base [id number] 13:49:00* Test Item Value Reference Range Interpretation Comments Arterial Blood Base Excess (test code = 1925-7) 9.0 -2-3 H [facility] CenterAr[facility] Blood Oxygen Saturation 2017-09-28 13:49:00* Test Item Value Reference Range Interpretation Comments Arterial Blood Oxygen Saturation (test code = 2708-6) 60.0 95-98 L [facility] Blood [id number] 13:49:00* Test Item Value Reference Range Interpretation Comments Arterial Blood pH (test code = 2744-1) 7.46 7.31-7.41 H WAS CALLED TO RUN A BLOOD GAS FOR A PT ON ROOM AIR LAYING ON THE REGIONAL ACCOUNT DIRECTOR TABLE [facility] CenterAr[facility] Blood Partial Pressure CO2 2017-09-28 13:49:00* Test Item Value Reference Range Interpretation Comments Arterial Blood Partial Pressure CO2 (test code = 2018-8) 46 41-51 [facility] CenterAr[facility]ial Blood Partial Pressure O2 2017-09-28 13:49:00* Test Item Value Reference Range Interpretation Comments Arterial Blood Partial Pressure O2 (test code = 2018-8) 30 80-105 LL Results called/hand delivered to DR CLINTON LLAMAS at 1328 on 09/28/17 by Mckayla reyna. [place].[facility] CenterAr[facility] Blood HCO3 2017-09-28 13:49:00* Test Item Value Reference Range Interpretation Comments Arterial Blood HCO3 (test code = 1960-4) 33 23-28 H [facility] CenterAr[facility] Blood Base Iuiyte6003-95-95 13:49:00* Test Item Value Reference Range Interpretation Comments Arterial Blood Base Excess (test code = 1925-7) 9.0 -2-3 H [facility] CenterAr[facility] Blood Oxygen Saturation 2017-09-28 13:49:00* Test Item Value Reference Range Interpretation Comments Arterial Blood Oxygen Saturation (test code = 2708-6) 60.0 95-98 L [facility] CenterBlood Hrdoanw4270-46-62 11:00:00* Test Item Value Reference Range Interpretation Comments Blood Culture (test code = 37375438) NO GROWTH AFTER 72 HOURS [facility] CenterCreatine Kinase [id number] 07:21:00* Test Item Value Reference Range Interpretation Comments Creatine Kinase MB (test code = 95443-6) 1.40 0-5.0 [facility] CenterTroponin [id number] 07:21:00* Test Item Value Reference Range Interpretation Comments Troponin I (test code = XGC6241) -0.001 0-0.300 [facility] CenterCreatine Kinase [id number] 07:21:00* Test Item Value Reference Range Interpretation Comments Creatine Kinase MB (test code = 80160-9) 1.40 0-5.0 [facility] CenterTroponin [id number] 07:21:00* Test Item Value Reference Range Interpretation Comments Troponin I (test code = NSC5655) -0.001 0-0.300 [facility] CenterCreatine Ngwqya0722-20-22 07:19:00* Test Item Value Reference Range Interpretation Comments Creatine Kinase (test code = 2157-6) 67 [facility] CenterCreatine Lbidze5817-85-00 07:19:00* Test Item Value Reference Range Interpretation Comments Creatine Kinase (test code = 2157-6) 168 [facility] CenterWhite Blood Rrhsj7869-34-24 07:00:00* Test Item Value Reference Range Interpretation Comments White Blood Count (test code = 6690-2) 8.36 4.8-10.8 [facility] CenterRed Blood Panjn1754-69-22 07:00:00* Test Item Value Reference Range Interpretation Comments Red Blood Count (test code = 789-8) 4.13 3.6-5.1 [facility] CenterHemoglobin2018-03-06 07:00:00* Test Item Value Reference Range Interpretation Comments Hemoglobin (test code = 13109-2) 10.9 12.0-16.0 L [facility] CenterHematocrit2018-03-06 07:00:00* Test Item Value Reference Range Interpretation Comments Hematocrit (test code = 4544-3) 35.0 34.2-44.1 [facility] CenterMean Corpuscular Hmnzrm5221-08-40 07:00:00* Test Item Value Reference Range Interpretation Comments Mean Corpuscular Volume (test code = 787-2) 84.7 81-99 [facility] CenterMean Corpuscular Nbjtuntlif4452-27-97 07:00:00* Test Item Value Reference Range Interpretation Comments Mean Corpuscular Hemoglobin (test code = 785-6) 26.4 28-32 [facility] Hem[facility] Concent 2017-09-26 07:00:00* Test Item Value Reference Range Interpretation Comments Mean Corpuscular Hemoglobin Concent (test code = 786-4) 31.1 31-35 [facility] CenterRed Cell Distribution Cvubp3298-84-55 07:00:00* Test Item Value Reference Range Interpretation Comments Red Cell Distribution Width (test code = 03433-4) 15.1 11.7 -14.4 H [facility] CenterPlatelet Fdrxf4184-28-12 07:00:00* Test Item Value Reference Range Interpretation Comments Platelet Count (test code = 777-3) 223 140-360 [facility] CenterNeutrophils (%) (Auto)2017-09-26 07:00:00 * Test Item Value Reference Range Interpretation Comments Neutrophils (%) (Auto) (test code = 08812-7) 80.9 38.7-80.0 H [facility] CenterLymphocytes (%) (Auto)2017-09-26 07:00:00 * Test Item Value Reference Range Interpretation Comments Lymphocytes (%) (Auto) (test code = 736-9) 12.3 18.0-39.1 L [facility] CenterMonocytes (%) (Auto)2017-09-26 07:00:00* Test Item Value Reference Range Interpretation Comments Monocytes (%) (Auto) (test code = 5905-5) 5.1 4.4-11.3 [facility] CenterEosinophils (%) (Auto)2017-09-26 07:00:00 * Test Item Value Reference Range Interpretation Comments Eosinophils (%) (Auto) (test code = 713-8) 0.0 0.0-6.0 [facility] CenterBasophils (%) (Auto)2017-09-26 07:00:00* Test Item Value Reference Range Interpretation Comments Basophils (%) (Auto) (test code = 706-2) 0.4 0.0-1.0 [facility] CenterIM GRANULOCYTES %2017-09-26 07:00:00* Test Item Value Reference Range Interpretation Comments IM GRANULOCYTES % (test code = IM GRANULOCYTES %) 1.3 0.0- 1.0 H [facility] CenterNeutrophils # (Auto)2017-09-26 07:00:00* Test Item Value Reference Range Interpretation Comments Neutrophils # (Auto) (test code = 751-8) 6.8 2.1-6.9 [facility] CenterLymphocytes # (Auto)2017-09-26 07:00:00* Test Item Value Reference Range Interpretation Comments Lymphocytes # (Auto) (test code = 78524-5) 1.0 1.0-3.2 [facility] CenterMonocytes # (Auto)2017-09-26 07:00:00* Test Item Value Reference Range Interpretation Comments Monocytes # (Auto) (test code = 742-7) 0.4 0.2-0.8 [facility] CenterEosinophils # (Auto)2017-09-26 07:00:00* Test Item Value Reference Range Interpretation Comments Eosinophils # (Auto) (test code = 711-2) 0.0 0.0-0.4 [facility] CenterBasophils # (Auto)2017-09-26 07:00:00* Test Item Value Reference Range Interpretation Comments Basophils # (Auto) (test code = 704-7) 0.0 0.0-0.1 [facility] CenterAbsolute Immature Granulocyte (auto 2017-09-26 07:00:00* Test Item Value Reference Range Interpretation Comments Absolute Immature Granulocyte (auto (joseph t code = Absolute Immature Granulocyte (auto) 0.11 0-0.1 H [facility] CenterWhite Blood Emkpy9097-83-78 07:00:00* Test Item Value Reference Range Interpretation Comments White Blood Count (test code = 6690-2) 8.36 4.8-10.8 [facility] CenterRed Blood Qkttl7011-35-94 07:00:00* Test Item Value Reference Range Interpretation Comments Red Blood Count (test code = 789-8) 4.13 3.6-5.1 [facility] CenterHemoglobin2018-03-06 07:00:00* Test Item Value Reference Range Interpretation Comments Hemoglobin (test code = 33628-4) 10.9 12.0-16.0 L [facility] CenterHematocrit2018-03-06 07:00:00* Test Item Value Reference Range Interpretation Comments Hematocrit (test code = 4544-3) 35.0 34.2-44.1 [facility] CenterMean Corpuscular Nsvmnu0145-68-76 07:00:00* Test Item Value Reference Range Interpretation Comments Mean Corpuscular Volume (test code = 787-2) 84.7 81-99 [facility] CenterMean Corpuscular Tdsshcsrwt2896-36-45 07:00:00* Test Item Value Reference Range Interpretation Comments Mean Corpuscular Hemoglobin (test code = 785-6) 26.4 28-32 L [facility] CenterMean Corpuscular Hemoglobin Concent 2017-09-26 07:00:00* Test Item Value Reference Range Interpretation Comments Mean Corpuscular Hemoglobin Concent (test code = 786-4) 31.1 31-35 [facility] CenterRed Cell Distribution Exgim1362-27-28 07:00:00* Test Item Value Reference Range Interpretation Comments Red Cell Distribution Width (test code = 60154-6) 15.1 11.7 -14.4 H [facility] CenterPlatelet Mtnzq6475-27-47 07:00:00* Test Item Value Reference Range Interpretation Comments Platelet Count (test code = 777-3) 223 140-360 [facility] CenterNeutrophils (%) (Auto)2017-09-26 07:00:00 * Test Item Value Reference Range Interpretation Comments Neutrophils (%) (Auto) (test code = 54099-1) 80.9 38.7-80.0 H [facility] CenterLymphocytes (%) (Auto)2017-09-26 07:00:00 * Test Item Value Reference Range Interpretation Comments Lymphocytes (%) (Auto) (test code = 736-9) 12.3 18.0-39.1 L [facility] CenterMonocytes (%) (Auto)2017-09-26 07:00:00* Test Item Value Reference Range Interpretation Comments Monocytes (%) (Auto) (test code = 5905-5) 5.1 4.4-11.3 [facility] CenterEosinophils (%) (Auto)2017-09-26 07:00:00 * Test Item Value Reference Range Interpretation Comments Eosinophils (%) (Auto) (test code = 713-8) 0.0 0.0-6.0 [facility] CenterBasophils (%) (Auto)2017-09-26 07:00:00* Test Item Value Reference Range Interpretation Comments Basophils (%) (Auto) (test code = 706-2) 0.4 0.0-1.0 [facility] CenterIM GRANULOCYTES %2017-09-26 07:00:00* Test Item Value Reference Range Interpretation Comments IM GRANULOCYTES % (test code = IM GRANULOCYTES %) 1.3 0.0- 1.0 H [facility] CenterNeutrophils # (Auto)2017-09-26 07:00:00* Test Item Value Reference Range Interpretation Comments Neutrophils # (Auto) (test code = 751-8) 6.8 2.1-6.9 [facility] CenterLymphocytes # (Auto)2017-09-26 07:00:00* Test Item Value Reference Range Interpretation Comments Lymphocytes # (Auto) (test code = 43002-8) 1.0 1.0-3.2 [facility] CenterMonocytes # (Auto)2017-09-26 07:00:00* Test Item Value Reference Range Interpretation Comments Monocytes # (Auto) (test code = 742-7) 0.4 0.2-0.8 [facility] CenterEosinophils # (Auto)2017-09-26 07:00:00* Test Item Value Reference Range Interpretation Comments Eosinophils # (Auto) (test code = 711-2) 0.0 0.0-0.4 [facility] CenterBasophils # (Auto)2017-09-26 07:00:00* Test Item Value Reference Range Interpretation Comments Basophils # (Auto) (test code = 704-7) 0.0 0.0-0.1 [facility] CenterAbsolute Immature Granulocyte (auto 2017-09-26 07:00:00* Test Item Value Reference Range Interpretation Comments Absolute Immature Granulocyte (auto (joseph t code = Absolute Immature Granulocyte (auto) 0.11 0-0.1 H [facility] CenterProthrombin [id number] 11:58:00* Test Item Value Reference Range Interpretation Comments Prothrombin Time (test code = 5902-2) 13.2 11.9-14.5 [facility] CenterProthromb Time International Ratio 2017-09-25 11:58:00* Test Item Value Reference Range Interpretation Comments Prothromb Time International Ratio (test code = 6301-6) 1.08 Oral Anticoagulant Therapy INR Values:1. Low Intensity Therapy 1.5 - 2.02 . Moderate Intensity Therapy 2.0 - 3.03. High Intensity Therapy(1) 2.5 - 3. 54. High Intensity Therapy(2) 3.0 - 4.05. Panic Value INR > 5.0 [facility] CenterActivated Partial Thromboplast Time 2017-09-25 11:58:00* Test Item Value Reference Range Interpretation Comments Activated Partial Thromboplast Time (test code = 36465-5) 23.7 23.8-35.5 L [facility] CenterB-Type Natriuretic Rbxdsdc3989-53-40 11:58:00* Test Item Value Reference Range Interpretation Comments B-Type Natriuretic Peptide (test code = 35902-2) 77.1 0-100 [facility] CenterProthrombin Yrsp8797-50-27 11:58:00* Test Item Value Reference Range Interpretation Comments Prothrombin Time (test code = 5902-2) 13.2 11.9-14.5 [facility] CenterProthromb Time International Ratio 2017-09-25 11:58:00* Test Item Value Reference Range Interpretation Comments Prothromb Time International Ratio (test code = 6301-6) 1.08 Oral Anticoagulant Therapy INR Values:1. Low Intensity Therapy 1.5 - 2.02 . Moderate Intensity Therapy 2.0 - 3.03. High Intensity Therapy(1) 2.5 - 3. 54. High Intensity Therapy(2) 3.0 - 4.05. Panic Value INR > 5.0 [facility] CenterActivated Partial Thromboplast Time 2017-09-25 11:58:00* Test Item Value Reference Range Interpretation Comments Activated Partial Thromboplast Time (test code = 95706-2) 23.7 23.8-35.5 L [facility] CenterB-Type Natriuretic Wtguvpp8601-98-96 11:58:00* Test Item Value Reference Range Interpretation Comments B-Type Natriuretic Peptide (test code = 63138-4) 77.1 0-100 [facility] CenterInfluenza Virus Types A,B Antigen 2017-09-25 11:57:00* Test Item Value Reference Range Interpretation Comments Influenza Virus Types A,B Antigen (test code = 42236-1) NEGATIVE NEGATIVE [facility] CenterInfluenza Virus Types A,B Antigen 2017-09-25 11:57:00* Test Item Value Reference Range Interpretation Comments Influenza Virus Types A,B Antigen (test code = 84881-2) NEGATIVE NEGATIVE [facility] CenterInfluenza Virus Types A,B Antigen 2017-09-25 11:57:00* Test Item Value Reference Range Interpretation Comments Influenza Virus Types A,B Antigen (test code = 06856-7) NEGATIVE NEGATIVE [facility] CenterInfluenza Virus Types A,B Antigen 2017-09-25 11:57:00* Test Item Value Reference Range Interpretation Comments Influenza Virus Types A,B Antigen (test code = 40982-6) NEGATIVE NEGATIVE [facility] CenterInfluenza Virus Types A,B Antigen 2017-09-25 11:57:00* Test Item Value Reference Range Interpretation Comments Influenza Virus Types A,B Antigen (test code = 80941-2) NEGATIVE NEGATIVE [facility] CenterInfluenza Virus Types A,B Antigen 2017-09-25 11:57:00* Test Item Value Reference Range Interpretation Comments Influenza Virus Types A,B Antigen (test code = 05539-7) NEGATIVE NEGATIVE [facility] CenterInfluenza Virus Types A,B Antigen 2017-09-25 11:57:00* Test Item Value Reference Range Interpretation Comments Influenza Virus Types A,B Antigen (test code = 55926-3) NEGATIVE NEGATIVE [facility] CenterInfluenza Virus Types A,B Antigen 2017-09-25 11:57:00* Test Item Value Reference Range Interpretation Comments Influenza Virus Types A,B Antigen (test code = 00195-2) NEGATIVE NEGATIVE [facility] CenterInfluenza Virus Types A,B Antigen 2017-09-25 11:57:00* Test Item Value Reference Range Interpretation Comments Influenza Virus Types A,B Antigen (test code = 27815-0) NEGATIVE NEGATIVE [facility] CenterInfluenza Virus Types A,B Antigen 2017-09-25 11:57:00* Test Item Value Reference Range Interpretation Comments Influenza Virus Types A,B Antigen (test code = 57303-9) NEGATIVE NEGATIVE [facility] CenterInfluenza Virus Types A,B Antigen 2017-09-25 11:57:00* Test Item Value Reference Range Interpretation Comments Influenza Virus Types A,B Antigen (test code = 52864-7) NEGATIVE NEGATIVE [facility] CenterUrine [id number] 11:55:00* Test Item Value Reference Range Interpretation Comments Urine WBC (test code = 5821-4) NONE 0-5 [facility] CenterUrine [id number] 11:55:00* Test Item Value Reference Range Interpretation Comments Urine RBC (test code = 09062-8) NONE 0-5 [facility] CenterUrine Ejffadpj0968-19-43 11:55:00* Test Item Value Reference Range Interpretation Comments Urine Bacteria (test code = 81510-5) NONE NONE [facility] CenterUrine Epithelial Igfag5624-25-90 11:55:00 * Test Item Value Reference Range Interpretation Comments Urine Epithelial Cells (test code = 30555-3) RARE NONE [facility] CenterUrine [id number] 11:55:00* Test Item Value Reference Range Interpretation Comments Urine WBC (test code = 5821-4) NONE 0-5 [facility] CenterU[facility] [id number] 11:55:00* Test Item Value Reference Range Interpretation Comments Urine RBC (test code = 27587-6) NONE 0-5 [facility] CenterUrine Ijxspoxp5328-43-72 11:55:00* Test Item Value Reference Range Interpretation Comments Urine Bacteria (test code = 00746-2) NONE NONE [facility] CenterUrine Epithelial Xmbyw5683-67-11 11:55:00 * Test Item Value Reference Range Interpretation Comments Urine Epithelial Cells (test code = 26327-2) RARE NONE [facility] CenterThyroid Stimulating Hormone (TSH) 2017-09-25 11:50:00* Test Item Value Reference Range Interpretation Comments Thyroid Stimulating Hormone (TSH) (test code = 93517-8) 0.515 0.350-4.940 [facility] CenterThyroid Stimulating Hormone (TSH) 2017-09-25 11:50:00* Test Item Value Reference Range Interpretation Comments Thyroid Stimulating Hormone (TSH) (test code = 63641-3) 0.515 0.350-4.940 [facility] CenterThyroid Stimulating Hormone (TSH) 2017-09-25 11:50:00* Test Item Value Reference Range Interpretation Comments Thyroid Stimulating Hormone (TSH) (test code = 97696-5) 0.515 0.350-4.940 [facility] CenterThyroid Stimulating Hormone (TSH) 2017-09-25 11:50:00* Test Item Value Reference Range Interpretation Comments Thyroid Stimulating Hormone (TSH) (test code = 90432-8) 0.515 0.350-4.940 [facility] CenterThyroid Stimulating Hormone (TSH) 2017-09-25 11:50:00* Test Item Value Reference Range Interpretation Comments Thyroid Stimulating Hormone (TSH) (test code = 42741-8) 0.515 0.350-4.940 [facility] CenterUrine Vrqit0876-73-38 11:45:00* Test Item Value Reference Range Interpretation Comments Urine Color (test code = 5778-6) COLORLESS YELLOW [facility] CenterU[facility] Gsnxrbr0624-34-48 11:45:00* Test Item Value Reference Range Interpretation Comments Urine Clarity (test code = 17056-1) CLEAR CLEAR [facility] CenterUrine Specific Hluiwie6681-44-20 11:45:00 * Test Item Value Reference Range Interpretation Comments Urine Specific [place] (test code = 5811-5) 1.010 1.010-1.02 5 [facility] CenterU[facility] [id number] 11:45:00* Test Item Value Reference Range Interpretation Comments Urine pH (test code = 76209-4) 6 5-7 [facility] CenterU[facility] Leukocyte Wwvnvyex5939-69-43 11:45:00* Test Item Value Reference Range Interpretation Comments Urine Leukocyte Esterase (test code = 5799-2) NEGATIVE NEGATIVE [facility] CenterU[facility] Diiqdza6804-87-12 11:45:00* Test Item Value Reference Range Interpretation Comments Urine Nitrite (test code = 34108-6) NEGATIVE NEGATIVE [facility] CenterU[facility] Atjycse1264-13-62 11:45:00* Test Item Value Reference Range Interpretation Comments Urine Protein (test code = 5804-0) NEGATIVE NEGATIVE [facility] CenterUrine Glucose (UA)2017-09-25 11:45:00* Test Item Value Reference Range Interpretation Comments Urine Glucose (UA) (test code = 2349-9) NEGATIVE NEGATIVE [facility] CenterU[facility] Zfgvteu3122-50-98 11:45:00* Test Item Value Reference Range Interpretation Comments Urine Ketones (test code = 23495-4) NEGATIVE NEGATIVE [facility] [facility] Zswiujxbvbeh1844-76-29 11:45:00* Test Item Value Reference Range Interpretation Comments Urine Urobilinogen (test code = 80703-8) 0.2 0.2-1 [facility] Vxozxyprx7173-81-76 11:45:00* Test Item Value Reference Range Interpretation Comments Urine Bilirubin (test code = 1978-6) NEGATIVE NEGATIVE [facility] CenterU[facility] Hlyuh3668-53-18 11:45:00* Test Item Value Reference Range Interpretation Comments Urine Blood (test code = 10218-3) NEGATIVE NEGATIVE [facility] CenterU[facility] Xsngb7979-07-53 11:45:00* Test Item Value Reference Range Interpretation Comments Urine Color (test code = 5778-6) COLORLESS YELLOW [facility] CenterU[facility] Bemyxcn9252-14-86 11:45:00* Test Item Value Reference Range Interpretation Comments Urine Clarity (test code = 63828-6) CLEAR CLEAR [facility] CenterUrine Specific Ptlxqwl5274-52-58 11:45:00 * Test Item Value Reference Range Interpretation Comments Urine Specific [place] (test code = 5811-5) 1.010 1.010-1.02 5 [facility] CenterU[facility] rI8916-54-79 11:45:00* Test Item Value Reference Range Interpretation Comments Urine pH (test code = 06606-9) 6 5-7 [facility] CenterU[facility] Leukocyte Ifvvjetu0156-27-32 11:45:00* Test Item Value Reference Range Interpretation Comments Urine Leukocyte Esterase (test code = 5799-2) NEGATIVE NEGATIVE [facility] CenterU[facility] Yshaytt4348-64-64 11:45:00* Test Item Value Reference Range Interpretation Comments Urine Nitrite (test code = 06303-3) NEGATIVE NEGATIVE [facility] CenterU[facility] Uereooa0140-44-23 11:45:00* Test Item Value Reference Range Interpretation Comments Urine Protein (test code = 5804-0) NEGATIVE NEGATIVE [facility] CenterU[facility] Glucose (UA)2017-09-25 11:45:00* Test Item Value Reference Range Interpretation Comments Urine Glucose (UA) (test code = 2349-9) NEGATIVE NEGATIVE [facility] CenterU[facility] Adyjgfb7306-80-67 11:45:00* Test Item Value Reference Range Interpretation Comments Urine Ketones (test code = 29098-0) NEGATIVE NEGATIVE [facility] CenterU[facility] Iterdmklfqtj9192-42-28 11:45:00* Test Item Value Reference Range Interpretation Comments Urine Urobilinogen (test code = 86682-2) 0.2 0.2-1 [facility] CenterU[facility] Pxoabpjav8144-63-05 11:45:00* Test Item Value Reference Range Interpretation Comments Urine Bilirubin (test code = 1978-6) NEGATIVE NEGATIVE [facility] Yhwga0794-50-33 11:45:00* Test Item Value Reference Range Interpretation Comments Urine Blood (test code = 08581-5) NEGATIVE NEGATIVE [facility] Mkxhntagi7930-44-79 11:25:00* Test Item Value Reference Range Interpretation Comments Total Bilirubin (test code = 1975-2) 0.3 0.2-1.2 [facility] CenterAspartate Amino Transf (AST/SGOT) 2017-09-25 11:25:00* Test Item Value Reference Range Interpretation Comments Aspartate Amino Transf (AST/SGOT) (test code = Aspartate Amino Transf (AST/SGOT)) 23 5-34 [facility] CenterAlanine Aminotransferase (ALT/SGPT) 2017-09-25 11:25:00* Test Item Value Reference Range Interpretation Comments Alanine Aminotransferase (ALT/SGPT) (test code = 1742-6) 27 0-55 [facility] CenterTotal Mjiegno1679-36-82 11:25:00* Test Item Value Reference Range Interpretation Comments Total Protein (test code = 2885-2) 6.8 6.5-8.1 [facility] CenterAlbumin2018-03-05 11:25:00* Test Item Value Reference Range Interpretation Comments Albumin (test code = 1751-7) 3.4 3.5-5.0 L [facility] CenterGlobulin2018-03-05 11:25:00* Test Item Value Reference Range Interpretation Comments Globulin (test code = 22535-3) 3.4 2.3-3.5 [facility] CenterAlbumin/Globulin Zxzyi0158-17-07 11:25:00 * Test Item Value Reference Range Interpretation Comments Albumin/Globulin Ratio (test code = 1759-0) 1.0 0.8-2.0 [facility] CenterAlkaline Gaalrfijrbs1855-31-46 11:25:00* Test Item Value Reference Range Interpretation Comments Alkaline Phosphatase (test code = 6768-6) 67 40-150 [facility] CenterTotal Cnrmbvcrt9255-52-78 11:25:00* Test Item Value Reference Range Interpretation Comments Total Bilirubin (test code = 1975-2) 0.3 0.2-1.2 [facility] CenterAspartate Amino Transf (AST/SGOT) 2017-09-25 11:25:00* Test Item Value Reference Range Interpretation Comments Aspartate Amino Transf (AST/SGOT) (test code = Aspartate Amino Transf (AST/SGOT)) 23 5-34 [facility] CenterAlanine Aminotransferase (ALT/SGPT) 2017-09-25 11:25:00* Test Item Value Reference Range Interpretation Comments Alanine Aminotransferase (ALT/SGPT) (test code = 1742-6) 27 0-55 [facility] Pplgwqn5956-40-61 11:25:00* Test Item Value Reference Range Interpretation Comments Total Protein (test code = 2885-2) 6.8 6.5-8.1 [facility] CenterAlbumin2018-03-05 11:25:00* Test Item Value Reference Range Interpretation Comments Albumin (test code = 1751-7) 3.4 3.5-5.0 L [facility] CenterGlobulin2018-03-05 11:25:00* Test Item Value Reference Range Interpretation Comments Globulin (test code = 69337-4) 3.4 2.3-3.5 [facility] CenterAlbumin/Globulin Xbbtf1229-49-63 11:25:00 * Test Item Value Reference Range Interpretation Comments Albumin/Globulin Ratio (test code = 1759-0) 1.0 0.8-2.0 [facility] CenterAlkaline Mqegzgspvxn6718-07-16 11:25:00* Test Item Value Reference Range Interpretation Comments Alkaline Phosphatase (test code = 6768-6) 67 40-150 [facility] CenterBedside Gdzurql7705-73-74 13:07:00* Test Item Value Reference Range Interpretation Comments Bedside Glucose (test code = 13968-9) 373 70-120 H Meter ID: [id number] [facility] TexasBlood Culture 2017-08-26 07:45:00* Test Item Value Reference Range Interpretation Comments Blood Culture (test code = 25828850) NO GROWTH AFTER [facility]RS [facility] Bzymd4383-83-61 07:23:00* Test Item Value Reference Range Interpretation Comments Sodium Level (test code = 2951-2) 139 136-145 [facility] CenterPotassium Sbnpt1152-57-29 07:23:00* Test Item Value Reference Range Interpretation Comments Potassium Level (test code = 2823-3) 4.7 3.5-5.1 [facility] CenterChloride Zcurc4733-07-19 07:23:00* Test Item Value Reference Range Interpretation Comments Chloride Level (test code = 2075-0) 103 98-107 [facility] CenterCarbon Dioxide Qhysn7793-78-46 07:23:00* Test Item Value Reference Range Interpretation Comments Carbon Dioxide Level (test code = 2028-9) 28 22-29 [facility] CenterAnion Vzs1694-82-16 07:23:00* Test Item Value Reference Range Interpretation Comments Anion Gap (test code = 49118-1) 12.7 8-16 [facility] CenterBlood Urea Pfgdolum8693-81-27 07:23:00* Test Item Value Reference Range Interpretation Comments Blood Urea Nitrogen (test code = 3094-0) 19 7-26 [facility] CenterCreatinine2018-02-02 07:23:00* Test Item Value Reference Range Interpretation Comments Creatinine (test code = 2160-0) 1.05 0.57-1.11 [facility] CenterBUN/Creatinine Xhckl3847-03-72 07:23:00* Test Item Value Reference Range Interpretation Comments BUN/Creatinine Ratio (test code = 3097-3) 18 6-25 [facility] CenterEstimat Glomerular Filtration Rate 2017-08-25 07:23:00* Test Item Value Reference Range Interpretation Comments Estimat Glomerular Filtration Rate (test code = 33417-8) 53 >60 L Ranges were taken from the National Kidney Disease Education Program and the [facility] Kidney Foundation literature.Reference ranges:60 or greater: Emeitt32-56 ( for 3 consecutive months): Chronic kidney disease 15 or less: Kidney failureCHI [facility]lor [facility] – PlanoGlucose Hstpc2223-65-10 07:23:00* Test Item Value Reference Range Interpretation Comments Glucose Level (test code = IRJ4147) 249 74-118 H [facility] CenterCalcium Keoai9994-26-45 07:23:00* Test Item Value Reference Range Interpretation Comments Calcium Level (test code = 14490-3) 8.8 8.4-10.2 [facility] CenterTotal Rxufhbpgi8472-40-79 07:23:00* Test Item Value Reference Range Interpretation Comments Total Bilirubin (test code = 1975-2) 0.5 0.2-1.2 [facility] CenterAspartate Amino Transf (AST/SGOT) 2017-08-25 07:23:00* Test Item Value Reference Range Interpretation Comments Aspartate Amino Transf (AST/SGOT) (test code = Aspartate Amino Transf (AST/SGOT)) 15 5-34 [facility] CenterAlanine Aminotransferase (ALT/SGPT) 2017-08-25 07:23:00* Test Item Value Reference Range Interpretation Comments Alanine Aminotransferase (ALT/SGPT) (test code = 1742-6) 16 0-55 [facility] CenterTotal Gbeswek6689-14-37 07:23:00* Test Item Value Reference Range Interpretation Comments Total Protein (test code = 2885-2) 6.7 6.5-8.1 [facility] CenterAlbumin2018-02-02 07:23:00* Test Item Value Reference Range Interpretation Comments Albumin (test code = 1751-7) 3.3 3.5-5.0 L [facility] CenterGlobulin2018-02-02 07:23:00* Test Item Value Reference Range Interpretation Comments Globulin (test code = 59227-3) 3.4 2.3-3.5 [facility] CenterAlbumin/Globulin Impet7626-40-16 07:23:00 * Test Item Value Reference Range Interpretation Comments Albumin/Globulin Ratio (test code = 1759-0) 1.0 0.8-2.0 [facility] CenterAlkaline Wdqxwxtqvme3223-53-38 07:23:00* Test Item Value Reference Range Interpretation Comments Alkaline Phosphatase (test code = 6768-6) 62 40-150 [facility] CenterTriglycerides Zunjg9406-31-69 07:23:00* Test Item Value Reference Range Interpretation Comments Triglycerides Level (test code = 2571-8) 216 0-149 H [facility] CenterCholesterol Xmgcl7712-80-32 07:23:00* Test Item Value Reference Range Interpretation Comments Cholesterol Level (test code = 2093-3) 181 0-199 Less than 200 mg/dL Low Chgn528 - 239 mg/dL Borderline Ltre818 m g/dl and greater High Risk [facility] CenterLDL Rrvpdzdvxpe8336-42-54 07:23:00* Test Item Value Reference Range Interpretation Comments LDL Cholesterol (test code = 2089-1) 109 60-130 [facility] CenterHDL Pxrqlugptdr3030-88-12 07:23:00* Test Item Value Reference Range Interpretation Comments HDL Cholesterol (test code = 2085-9) 29 40-60 L [facility] CenterCholesterol/HDL Nvlur2088-42-63 07:23:00 * Test Item Value Reference Range Interpretation Comments Cholesterol/HDL Ratio (test code = 9830-1) 6.2 3.0-3.6 H [facility] CenterTriglycerides Sdrzn8563-68-58 07:23:00* Test Item Value Reference Range Interpretation Comments Triglycerides Level (test code = 2571-8) 216 0-149 H [facility] CenterCholesterol Fyocy1992-55-01 07:23:00* Test Item Value Reference Range Interpretation Comments Cholesterol Level (test code = 2093-3) 181 0-199 Less than 200 mg/dL Low Xkuo234 - 239 mg/dL Borderline Yfsf809 m g/dl and greater High Risk [facility] CenterLDL Wdgdgnmljek8358-79-20 07:23:00* Test Item Value Reference Range Interpretation Comments LDL Cholesterol (test code = 2089-1) 109 60-130 [facility] Vqyblteymtz9315-00-07 07:23:00* Test Item Value Reference Range Interpretation Comments HDL Cholesterol (test code = 2085-9) 29 40-60 L [facility] CenterCholesterol/HDL Tiblu5958-08-91 07:23:00 * Test Item Value Reference Range Interpretation Comments Cholesterol/HDL Ratio (test code = 9830-1) 6.2 3.0-3.6 H [facility] CenterTriglycerides Seekq3345-64-62 07:23:00* Test Item Value Reference Range Interpretation Comments Triglycerides Level (test code = 2571-8) 216 0-149 H [facility] CenterCholesterol Nvymb4866-21-88 07:23:00* Test Item Value Reference Range Interpretation Comments Cholesterol Level (test code = 2093-3) 181 0-199 Less than 200 mg/dL Low Udlp931 - 239 mg/dL Borderline Tfme234 m g/dl and greater High Risk [facility] CenterLDL Iavirkdgdaz9150-24-99 07:23:00* Test Item Value Reference Range Interpretation Comments LDL Cholesterol (test code = 2089-1) 109 60-130 [facility] Pnwdzqassds5190-65-13 07:23:00* Test Item Value Reference Range Interpretation Comments HDL Cholesterol (test code = 2085-9) 29 40-60 L [facility] CenterCholesterol/HDL Osvef7563-98-78 07:23:00 * Test Item Value Reference Range Interpretation Comments Cholesterol/HDL Ratio (test code = 9830-1) 6.2 3.0-3.6 H [facility] CenterTriglycerides Wnxqc1125-92-83 07:23:00* Test Item Value Reference Range Interpretation Comments Triglycerides Level (test code = 2571-8) 216 0-149 H [facility] CenterCholesterol Djywb6783-04-39 07:23:00* Test Item Value Reference Range Interpretation Comments Cholesterol Level (test code = 2093-3) 181 0-199 Less than 200 mg/dL Low Qndn859 - 239 mg/dL Borderline Cfcq509 m g/dl and greater High Risk [facility] CenterLDL Dehymkmitwo9157-81-03 07:23:00* Test Item Value Reference Range Interpretation Comments LDL Cholesterol (test code = 2089-1) 109 60-130 [facility] Jfwuyufjfek1419-42-48 07:23:00* Test Item Value Reference Range Interpretation Comments HDL Cholesterol (test code = 2085-9) 29 40-60 L [facility] CenterCholesterol/HDL Ejhrf2637-79-69 07:23:00 * Test Item Value Reference Range Interpretation Comments Cholesterol/HDL Ratio (test code = 9830-1) 6.2 3.0-3.6 H [facility] CenterTriglycerides Guuzq8076-68-96 07:23:00* Test Item Value Reference Range Interpretation Comments Triglycerides Level (test code = 2571-8) 216 0-149 H [facility] CenterCholesterol Fktux5655-26-92 07:23:00* Test Item Value Reference Range Interpretation Comments Cholesterol Level (test code = 2093-3) 181 0-199 Less than 200 mg/dL Low Wndt380 - 239 mg/dL Borderline Zioq425 m g/dl and greater High Risk [facility] CenterLDL Ravuuqpyomv9625-15-35 07:23:00* Test Item Value Reference Range Interpretation Comments LDL Cholesterol (test code = 2089-1) 109 60-130 [facility]L Bpoelsdhpop0327-79-42 07:23:00* Test Item Value Reference Range Interpretation Comments HDL Cholesterol (test code = 2085-9) 29 40-60 L [facility] CenterCholesterol/HDL Hltfq1489-85-86 07:23:00 * Test Item Value Reference Range Interpretation Comments Cholesterol/HDL Ratio (test code = 9830-1) 6.2 3.0-3.6 H [facility] CenterTriglycerides Pwiqv5698-78-68 07:23:00* Test Item Value Reference Range Interpretation Comments Triglycerides Level (test code = 2571-8) 216 0-149 H [facility] CenterCholesterol Rrwos7057-64-55 07:23:00* Test Item Value Reference Range Interpretation Comments Cholesterol Level (test code = 2093-3) 181 0-199 Less than 200 mg/dL Low Jxms234 - 239 mg/dL Borderline Kquz750 m g/dl and greater High Risk [facility] CenterLDL Ebzjeasutal0308-62-98 07:23:00* Test Item Value Reference Range Interpretation Comments LDL Cholesterol (test code = 2089-1) 109 60-130 [facility] CenterHDL Uckvvhnsvby4513-62-01 07:23:00* Test Item Value Reference Range Interpretation Comments HDL Cholesterol (test code = 2085-9) 29 40-60 L [facility] CenterCholesterol/HDL Ktjwa3559-97-36 07:23:00 * Test Item Value Reference Range Interpretation Comments Cholesterol/HDL Ratio (test code = 9830-1) 6.2 3.0-3.6 H [facility] CenterWhite Blood Rtnjc3221-45-88 07:08:00* Test Item Value Reference Range Interpretation Comments White Blood Count (test code = 6690-2) 4.69 4.8-10.8 L [facility] CenterRed Blood Flald6420-03-22 07:08:00* Test Item Value Reference Range Interpretation Comments Red Blood Count (test code = 789-8) 4.53 3.6-5.1 [facility] CenterHemoglobin2018-02-02 07:08:00* Test Item Value Reference Range Interpretation Comments Hemoglobin (test code = 79761-5) 11.9 12.0-16.0 L [facility] CenterHematocrit2018-02-02 07:08:00* Test Item Value Reference Range Interpretation Comments Hematocrit (test code = 4544-3) 39.4 34.2-44.1 [facility] CenterMean Corpuscular Dxrgek8883-44-28 07:08:00* Test Item Value Reference Range Interpretation Comments Mean Corpuscular Volume (test code = 787-2) 87.0 81-99 [facility] CenterMean Corpuscular Lhfwdqiaep3423-70-85 07:08:00* Test Item Value Reference Range Interpretation Comments Mean Corpuscular Hemoglobin (test code = 785-6) 26.3 28-32 L [facility] CenterMean Corpuscular Hemoglobin Concent 2017-08-25 07:08:00* Test Item Value Reference Range Interpretation Comments Mean Corpuscular Hemoglobin Concent (test code = 786-4) 30.2 31-35 L [facility] CenterRed Cell Distribution Zmoxl5946-75-51 07:08:00* Test Item Value Reference Range Interpretation Comments Red Cell Distribution Width (test code = 39740-0) 14.8 11.7 -14.4 H [facility] CenterPlatelet Liqoy4449-06-54 07:08:00* Test Item Value Reference Range Interpretation Comments Platelet Count (test code = 777-3) 177 140-360 [facility] CenterNeutrophils (%) (Auto)2017-08-25 07:08:00 * Test Item Value Reference Range Interpretation Comments Neutrophils (%) (Auto) (test code = 72621-8) 55.5 38.7-80.0 [facility] CenterLymphocytes (%) (Auto)2017-08-25 07:08:00 * Test Item Value Reference Range Interpretation Comments Lymphocytes (%) (Auto) (test code = 736-9) 28.8 18.0-39.1 [facility] CenterMonocytes (%) (Auto)2017-08-25 07:08:00* Test Item Value Reference Range Interpretation Comments Monocytes (%) (Auto) (test code = 5905-5) 8.7 4.4-11.3 [facility] CenterEosinophils (%) (Auto)2017-08-25 07:08:00 * Test Item Value Reference Range Interpretation Comments Eosinophils (%) (Auto) (test code = 713-8) 5.1 0.0-6.0 [facility] CenterBasophils (%) (Auto)2017-08-25 07:08:00* Test Item Value Reference Range Interpretation Comments Basophils (%) (Auto) (test code = 706-2) 1.3 0.0-1.0 H [facility] CenterIM GRANULOCYTES %2017-08-25 07:08:00* Test Item Value Reference Range Interpretation Comments IM GRANULOCYTES % (test code = IM GRANULOCYTES %) 0.6 0.0- 1.0 [facility] CenterNeutrophils # (Auto)2017-08-25 07:08:00* Test Item Value Reference Range Interpretation Comments Neutrophils # (Auto) (test code = 751-8) 2.6 2.1-6.9 [facility] CenterLymphocytes # (Auto)2017-08-25 07:08:00* Test Item Value Reference Range Interpretation Comments Lymphocytes # (Auto) (test code = 65024-3) 1.4 1.0-3.2 [facility] CenterMonocytes # (Auto)2017-08-25 07:08:00* Test Item Value Reference Range Interpretation Comments Monocytes # (Auto) (test code = 742-7) 0.4 0.2-0.8 [facility] CenterEosinophils # (Auto)2017-08-25 07:08:00* Test Item Value Reference Range Interpretation Comments Eosinophils # (Auto) (test code = 711-2) 0.2 0.0-0.4 [facility] CenterBasophils # (Auto)2017-08-25 07:08:00* Test Item Value Reference Range Interpretation Comments Basophils # (Auto) (test code = 704-7) 0.1 0.0-0.1 [facility] CenterAbsolute Immature Granulocyte (auto 2017-08-25 07:08:00* Test Item Value Reference Range Interpretation Comments Absolute Immature Granulocyte (auto (joseph t code = Absolute Immature Granulocyte (auto) 0.03 0-0.1 [facility] CenterCreatine Bomdsr0906-08-54 01:09:00* Test Item Value Reference Range Interpretation Comments Creatine Kinase (test code = 2157-6) 41 29-168 [facility] CenterCreatine Kinase HQ2065-05-96 01:09:00* Test Item Value Reference Range Interpretation Comments Creatine Kinase MB (test code = 66080-1) 1.30 0.00-5.00 [facility] CenterTroponin Z0468-00-31 01:09:00* Test Item Value Reference Range Interpretation Comments Troponin I (test code = 82376-9) 0.006 0-0.300 [facility] CenterHemoglobin A1c Yuorkzr7163-65-29 18:39:00 * Test Item Value Reference Range Interpretation Comments Hemoglobin A1c Percent (test code = Hemoglobin A1c Percent) 7.6 4.0-7.0 H [facility] CenterHemoglobin A1c Bdddktw8596-84-58 18:39:00 * Test Item Value Reference Range Interpretation Comments Hemoglobin A1c Percent (test code = Hemoglobin A1c Percent) 7.6 4.0-7.0 H [facility] CenterHemoglobin A1c Nsodwck6158-72-20 18:39:00 * Test Item Value Reference Range Interpretation Comments Hemoglobin A1c Percent (test code = Hemoglobin A1c Percent) 7.6 4.0-7.0 H [facility] CenterHemoglobin A1c Ulblrdh0276-10-25 18:39:00 * Test Item Value Reference Range Interpretation Comments Hemoglobin A1c Percent (test code = Hemoglobin A1c Percent) 7.6 4.0-7.0 H [facility] CenterHemoglobin A1c Bhuodro8882-29-00 18:39:00 * Test Item Value Reference Range Interpretation Comments Hemoglobin A1c Percent (test code = Hemoglobin A1c Percent) 7.6 4.0-7.0 H [facility] CenterHemoglobin A1c Dpeqrqk1290-72-27 18:39:00 * Test Item Value Reference Range Interpretation Comments Hemoglobin A1c Percent (test code = Hemoglobin A1c Percent) 7.6 4.0-7.0 H [facility] CenterHemoglobin A1c Hewxusm2706-00-08 18:39:00 * Test Item Value Reference Range Interpretation Comments Hemoglobin A1c Percent (test code = Hemoglobin A1c Percent) 7.6 4.0-7.0 H [facility] CenterHemoglobin A1c Nkesjke0245-25-44 18:39:00 * Test Item Value Reference Range Interpretation Comments Hemoglobin A1c Percent (test code = Hemoglobin A1c Percent) 7.6 4.0-7.0 H [facility] CenterHemoglobin A1c Grhhpkw4612-98-38 18:39:00 * Test Item Value Reference Range Interpretation Comments Hemoglobin A1c Percent (test code = Hemoglobin A1c Percent) 7.6 4.0-7.0 H [facility] CenterHemoglobin A1c Epfmbnf2882-56-65 18:39:00 * Test Item Value Reference Range Interpretation Comments Hemoglobin A1c Percent (test code = Hemoglobin A1c Percent) 7.6 4.0-7.0 H [facility] CenterUrine JYJ0275-34-77 07:50:00* Test Item Value Reference Range Interpretation Comments Urine WBC (test code = 5821-4) 0-5 0-5 [facility] CenterUrine PTB4589-07-39 07:50:00* Test Item Value Reference Range Interpretation Comments Urine RBC (test code = 38875-4) 0-5 0-5 [facility] CenterUrine Odeyhemu6197-63-66 07:50:00* Test Item Value Reference Range Interpretation Comments Urine Bacteria (test code = 15545-2) FEW NONE [facility] CenterUrine Epithelial Gkplu8857-44-31 07:50:00 * Test Item Value Reference Range Interpretation Comments Urine Epithelial Cells (test code = 39647-7) FEW NONE [facility] CenterB-Type Natriuretic Vytegiz5686-87-58 07:47:00* Test Item Value Reference Range Interpretation Comments B-Type Natriuretic Peptide (test code = 93478-0) 17.8 0-100 [facility] CenterThyroid Stimulating Hormone (TSH) 2017-08-24 07:47:00* Test Item Value Reference Range Interpretation Comments Thyroid Stimulating Hormone (TSH) (test code = 11574-6) 1.123 0.350-4.940 [facility] CenterInfluenza Virus Types A,B Antigen 2017-08-24 07:39:00* Test Item Value Reference Range Interpretation Comments Influenza Virus Types A,B Antigen (test code = 76097-8) NEGATIVE NEGATIVE [facility] CenterMagnesium Rcjae5863-73-71 07:32:00* Test Item Value Reference Range Interpretation Comments Magnesium Level (test code = 06715-7) 2.0 1.3-2.1 [facility] [id number] 07:32:00* Test Item Value Reference Range Interpretation Comments Magnesium Level (test code = 45954-8) 2.0 1.3-2.1 [facility] [id number] 07:32:00* Test Item Value Reference Range Interpretation Comments Magnesium Level (test code = 45452-7) 2.0 1.3-2.1 [facility] [id number] 07:19:00* Test Item Value Reference Range Interpretation Comments Prothrombin Time (test code = 5902-2) 13.0 11.9-14.5 [facility]th[facility] International Ratio 2017-08-24 07:19:00* Test Item Value Reference Range Interpretation Comments Prothromb Time International Ratio (test code = 6301-6) 0.94 Oral Anticoagulant Therapy INR Values:1. Low Intensity Therapy 1.5 - 2.02 . Moderate Intensity Therapy 2.0 - 3.03. High Intensity Therapy(1) 2.5 - 3. 54. High Intensity Therapy(2) 3.0 - 4.05. Panic Value INR > 5.0 [facility] CenterAct[facility] Partial Thromboplast Time 2017-08-24 07:19:00* Test Item Value Reference Range Interpretation Comments Activated Partial Thromboplast Time (test code = 94167-5) 25.1 23.8-35.5 [facility] Center[facility] [id number] 07:18:00* Test Item Value Reference Range Interpretation Comments Urine Color (test code = 5778-6) YELLOW YELLOW [facility] Vvhuyvu4082-85-35 07:18:00* Test Item Value Reference Range Interpretation Comments Urine Clarity (test code = 41370-5) CLEAR CLEAR [facility] Center[facility] Specific Vjubfyj4823-71-04 07:18:00 * Test Item Value Reference Range Interpretation Comments Urine Specific [place] (test code = 5811-5) 1.025 1.010-1.02 5 [facility] Center[facility] [id number] 07:18:00* Test Item Value Reference Range Interpretation Comments Urine pH (test code = 03322-8) 5 5-7 [facility] Leukocyte Flsrnevp4215-98-08 07:18:00* Test Item Value Reference Range Interpretation Comments Urine Leukocyte Esterase (test code = 5799-2) NEGATIVE NEGATIVE [facility] Dyrurhr5074-30-28 07:18:00* Test Item Value Reference Range Interpretation Comments Urine Nitrite (test code = 09089-0) NEGATIVE NEGATIVE [facility] Ypnbrkg4577-73-24 07:18:00* Test Item Value Reference Range Interpretation Comments Urine Protein (test code = 5804-0) NEGATIVE NEGATIVE [facility] Glucose (UA)2017-08-24 07:18:00* Test Item Value Reference Range Interpretation Comments Urine Glucose (UA) (test code = 2349-9) 3+ NEGATIVE H [facility] Zqcwktz5178-68-76 07:18:00* Test Item Value Reference Range Interpretation Comments Urine Ketones (test code = 28160-8) NEGATIVE NEGATIVE [facility] Sjsrxhaqxuhk9644-82-96 07:18:00* Test Item Value Reference Range Interpretation Comments Urine Urobilinogen (test code = 55954-2) 0.2 0.2-1 [facility] Ayzlmdorm4769-43-71 07:18:00* Test Item Value Reference Range Interpretation Comments Urine Bilirubin (test code = 1978-6) NEGATIVE NEGATIVE [facility] Noeod6279-53-02 07:18:00* Test Item Value Reference Range Interpretation Comments Urine Blood (test code = 40657-7) NEGATIVE NEGATIVE [facility] CenterUS RENAL RETROPERITONEAL COMP [facility] [address] [place] [address] Patient Name: KALYANI TALAVERA MR #: [id number] : 1955 Age/Sex: 62/F Req #: [id number] Adm Physician: BENJAMIN MASTERS MD Ordered by: BENJAMIN MASTERS MD Report #: [id number] Locat ion: IM Room/Bed: [place] [address] Procedure: [id number] U S/US RENAL RETROPERITONEAL COMP Exam Date: [...] TO: BENJAMIN MASTERS MD CT BRAIN WO [place] [address] Patient Name: KALYANI TALAVERA MR #: [id number] : 1955 Age/Sex: 62/F Req #: [id number] Adm Physician: Ordered by: FLO TOLBERT MD Report #: [id number] Location: ER Room/Bed: Procedure: [id number] CT/CT BRAIN WO Exam Date: Exam Time: [...] TO: Treasure TOLBERT MD CHEST 2 VIEWS [place] [address] Patient Name: KALYANI TALAVERA MR #: [id number] : 1955 Age/Sex: 62/F Req #: [id number] Adm Physician: Ordered by: FLO TOLBERT MD Report #: [id number] Location: ER Room/Bed: Procedure: [id number] DX/CHEST 2 VIEWS Exam Date: 12/23/17 Exam [...] FLO TOLBERT MD KNEE LEFT THREE VIEWS [place] [address] Patient Name: KALYANI TALAVERA MR #: [id number] : 1955 Age/Sex: 62/F Req #: [id number] Adm Physician: Ordered by: JACQUES JANE MD Report #: [id number] Location: ER Room/Bed: Procedure: [id number] DX/KNEE LEFT THREE VIE WS Exam Date: [...] JACQUES JANE MD PELVIS AP 1-2 VIEWS [place] [address] Patient Name: KALYANI TALAVERA MR #: [id number] : 1955 Age/Sex: 62/F Req #: [id number] Adm Physician: Ordered by: JACQUES JANE MD Report #: [id number] Location: ER Room/Bed: Procedure: [id number] DX/PELVIS AP 1-2 VIEWS Exam Date: 10/31/17 [...] TO: JACQUES JANE MD CHEST 2 VIEWS [place] [address] Patient Name: KALYANI TALAVERA MR #: [id number] : 1955 Age/Sex: 62/F Req #: [id number] Adm Physician: Ordered by: FLO TOLBERT MD Report #: [id number] Location: ER Room/Bed: Procedure: [id number] DX/CHEST 2 VIEWS Exam Date: 10/12/17 Exam [...] TO: FLO TOLBERT MD FOOT RIGHT COMPLETE [place] [address] Patient Name: KALYANI TALAVERA MR #: [id number] : 1955 Age/Sex: 62/F Req #: [id number] Adm Physician: Ordered by: JEFFREY MCDUFFIE MD Report #: [id number] Location: ER Room/Bed: Procedure: [id number] DX/FOOT RIGHT COMPLETE Exa m Date: 10/11/17 [...] at 8:39 Dictated By: JACINDA EASTMAN MD Transcribed By: ZOLTAN on 10/11/1739 COPY TO: JEFFREY MCDUFFIE MD KNEE LEFT THREE VIEWS [place] [address] Patient Name: KALYANI TALAVERA MR #: [id number] : 1955 Age/Sex: 62/F Req #: [id number] Adm Physician: Ordered by: JEFFREY MCDUFFIE MD Report #: [id number] Location: ER Room/Bed: Procedure: [id number] DX/KNEE LEFT THREE VIEWS E xam Date: 10/11/17 Exam Time: 0800 REPORT STATU S: Signed PROCEDURE: X-RAY LEFT KNEE, THREE OR MORE VIEWS COMPARISON: None. INDICATIONS: POST FALL FINDINGS: No acute, displaced fracture or dislocation. Mild medial and patellofemoral compartment degener ative changes. No joint effusion. No focal soft tissue abnormalities. CO NCLUSION: No acute osseous abnormality. Dictated by: Jacinda Eastman M.D. o n 10/11/2017 at 8:40 Electronically approved by: Jacinda Eastman M.D. on 10/11 at 8:40 Dictated By: JACINDA EASTMAN MD Electronically Christiane d By: JACINDA EASTMAN MD on 10/11/17839 Transcribed By: ZOLTAN on 10/11/17839 COPY TO: JEFFREY MCDUFFIE MD CT CHEST WO [place] [address] Patient Name: KALYANI TALAVERA MR #: [id number] : 1955 Age/Sex: 62/F Req #: [id number] Adm Physician: Ordered by: RAFAELA ASTUDILLO MIS SPECIALIST Report #: [id number] Location: ER Room/Bed: Procedure: [id number] CT/CT CHEST WO Exam Date: Exam Time: [...] on 09/25/17 1307 COPY TO: RAFAELA ASTUDILLO MIS SPECIALIST CHEST SINGLE (PORTABLE) [place] [address] Patient Name: KALYANI TALAVERA MR #: [id number] : 1955 Age/Sex: 62/F Req #: [id number] Adm Physician: Ordered by: RAFAELA ASTUDILLO MIS SPECIALIST Report #: [id number] Location: ER Room/Bed: Procedure: [id number] DX/CHEST SINGLE (PORTABLE) E xam Date: 09/25/17 [...] on 09/25/17 1106 COPY TO: RAFAELA ASTUDILLO MIS SPECIALIST CHEST 2 VIEWS [place] [address] Patient Name: KALYANI TALAVERA MR #: [id number] : 1955 Age/Sex: 62/F Req #: [id number] Adm Physician: Ordered by: FLO TOLBERT MD Report #: [id number] Location: ER Room/Bed: Procedure: [id number] DX/CHEST 2 VIEWS Exam Date: Exam Time: 0715 REPORT STATUS: Signed PROCEDURE: CHEST 2 VIEWS TECHNIQUE: PA and lateral chest totaling 2 radio graphs INDICATION: Shortness of breath and syncope COMPARISON: [facility], DX, CHEST 2 VIEWS, 10/15/2016, 23:42. [...] AILEEN TOLBERT MD CT CERVICAL SPINE WO [place] [address] Patient Name: KALYANI TALAVERA MR #: [id number] : 1955 Age/Sex: 62/F Req #: [id number] Adm Physician: Ordered by: FLO TOLBERT MD Report #: [id number] Location: ER Room/Bed: Procedure: [id number] CT/CT CERVICAL SPINE WO Exam D ate: 08/24/17 Exam Time: 07 REPORT STATUS: Si gned History: Fall, syncope [...] TO: FLO TOLBERT MD CT BRAIN WO [place] [address] Patient Name: KALYANI TALAVERA MR #: [id number] : 0 1955 Age/Sex: 62/F Req #: [id number] Adm Physician: Ordered by: FLO TOLBERT MD Report #: [id number] Location: ER Room/Bed: Procedure: [id number] CT/CT BRAIN WO Exam Date: 08/10 Exam [...] 7:54 AM Dictated By: RILEY WYNN MD [facility] Signed By: RILEY WYNN MD on 08/24/17 0754 Transcribed By: JIM on 08/24/17 0759 COPY TO: FLO TOLBERT MD
[2020-03-27] MEDS ORDERED: DEXTROSE 50% SYRINGE 50 ML IV PRN (04:45)
--- NOTE | 2020-03-27 07:01 | NUR ---
bedside report received from Gita Curtis LVN
[2020-03-27] MEDS ORDERED: INSULIN REGULAR, HUMAN 100 UNIT/1 ML 3ML VIAL SQ SCH (07:30)
--- NOTE | 2020-03-27 08:27 | NUR ---
fingerstick blood glucose of 420 mg/dl, Dr. Amador notified, attending MD paged at this time
--- NOTE | 2020-03-27 08:28 | NUR ---
14 units of regular insulin to be given at this time per MD order
--- NOTE | 2020-03-27 08:46 | NUR ---
Dr. Huerta notified of elevated blood sugar, states to start patient on home insulin on top of the regular insulin sliding scale that she is on, order given for [place] 5/325 1 TAB PO q6 PRN for pain
--- NOTE | 2020-03-27 10:25 | NUR ---
breakfast tray given to the patient
--- NOTE | 2020-03-27 11:13 | History and Physical ---
HISTORY OF PRESENT ILLNESS: Ms. Painter is a 65-year-old female with history of hypertension, diabetes, COPD, CHF, atrial fibrillation, anxiety, depression, hyperlipidemia, and chronic back pain, who came to the emergency room complaining of 3 to 4 days of worsening of shortness of breath, wheezing, and cough. She states she had a low-grade fever. No other complaints. PAST MEDICAL HISTORY: She has hypertension, diabetes, COPD, CHF, depression, reflux, hyperlipidemia, and chronic back pain. ALLERGIES: SHE IS ALLERGIC TO PENICILLIN. PAST SURGICAL HISTORY: She had appendectomy. SOCIAL HISTORY: She lives at home. She does not smoke and she does not drink. PHYSICAL EXAMINATION: GENERAL: Today, she is awake. She is alert. VITAL SIGNS: O2 saturation is 99% with nasal cannula 3 L/min, blood pressure 133/75, and temperature is 98.8. HEART: Regular rate. LUNGS: Bilateral wheezing. ABDOMEN: Distended and soft. LABORATORY DATA: On the blood work white count is 5.55, hemoglobin is 8.6, and hematocrit 29.9. Coronavirus is pending. Potassium 4.2, creatinine is 0.84, glucose 325. Chest x-ray shows bilateral lung airspace opacity representing moderate pulmonary edema and/or pneumonia. ASSESSMENT: 1. Chronic obstructive pulmonary disease exacerbation. 2. Rule out pneumonia. 3. Diabetes type 2 with hyperglycemia. 4. Hypertension. 5. Hyperlipidemia. 6. Anemia. 7. Depression. 8. Reflux. 9. Chronic back pain. 10. Right knee pain. 11. Sleep apnea. PLAN: At the present time is to continue neb treatments. Continue IV steroids, ADA diet, sliding scale with insulin, and continue all other home medications. All this was discussed in extension with the patient. All questions were answered to satisfaction. I spent more than 35 minutes examining patient, reviewing overnight event, lab results, and discussing plan of care with her. MD MARLY Schmidt/MODL /[id number]
--- NOTE | 2020-03-27 11:20 | NUR ---
Recvd patient from ER, AAOX3, ON O2- 4L NC, Not in any distress, call light in reach.
[2020-03-27 11:40] VITALS: BP 169/77
--- NOTE | 2020-03-27 11:55 | NUR ---
BS -511, Paged Dr Huerta for orders
[2020-03-27 12:00] VITALS: BP 169/77
[2020-03-27] MEDS: HYDROCODONE/APAP 5MG-325MG TAB PO PRN (13:11)
--- NOTE | 2020-03-27 13:24 | NUR ---
New order recvd from Dr Huerta to consult Dr Gutierrez, Also spoke with Dr Hayes regarding new consult
[2020-03-27] MEDS ORDERED: NON-FORMULARY MEDICATION (Ondansetron Hcl (Zofran) 4 MG) PO PRN (13:30)
[2020-03-27] MEDS ORDERED: ONDANSETRON HCL 4 MG ORAL DISINTEGRATING TAB PO PRN (13:45)
[2020-03-27 14:43] LABS: FREE T4 (FREE THYROXINE) 0.74 ng/dL (0.8-1.8); THYROID STIMULATING HORMONE 0.435 uIU/mL (0.350-4.940)
--- NOTE | 2020-03-27 14:54 | Consultation ---
DATE OF CONSULTATION: 03/27/2020 Endocrine Consultation The patient of Dr. Huerta. Thank you very much for referring this patient. HISTORY OF PRESENT ILLNESS: This is a 65-year-old white female, who is very well known to me from her last previous hospital admissions. In fact, the patient was in the hospital only few weeks back. The patient came to the hospital with history of extreme tiredness and shortness of breath. The patient has longstanding history of COPD and obstructive pulmonary disease. She is on home oxygen therapy. She also has diastolic dysfunction, congestive cardiac failure, and diabetes mellitus type 2 uncontrolled with complications. She takes about 60 units of Lantus at bedtime and about 30 of Humalog with each meal depending upon the blood sugars. When she came, her blood sugar was 325 and presently it is 431 and 420 after she received the steroids in the emergency room. She has also history of obesity. She is a nonsmoker. Her other routine medications include Lasix 40 mg twice daily. She is on gabapentin 30 mg 3 times a day. She is on losartan, Zoloft 100 mg once daily, and Zocor and spironolactone. PHYSICAL EXAMINATION: GENERAL: Today, the patient is alert and awake. She is moderately overweight, moderate to morbidly obese. VITAL SIGNS: Her heart rate is around 78 and blood pressure 146/86 mmHg. HEENT: Essentially unremarkable. Thyroid is palpable. Clinically, she is near euthyroid. CHEST: Bilateral vesicular breathing. She has bilateral bronchospasm and basilar rales. CARDIAC: First and second heart sounds. There is no third or fourth heart sounds. Ejection systolic murmur sound grade 2/6. EXTREMITIES: The patient has bilateral pedal edema. CLINICAL IMPRESSION: Diabetes mellitus type 2, uncontrolled with complications, precipitated by steroids, chronic obstructive pulmonary disease, obstructive pulmonary disease, congestive cardiac failure, and hypertension. PLAN: At this time is to increase her insulin dose. Monitor her blood sugars closely. Start her back on the Lantus and the Humalog insulin. Thanks again for referring this patient. I will be following this patient with you. MD EDDIE Casas/LEONELL /[id number]
[2020-03-27] MEDS ORDERED: INSULIN LISPRO 100 UNIT/1 ML 3ML VIAL SQ SCH (16:30)
--- NOTE | 2020-03-27 16:32 | Diagnostic Imaging Report ---
EXAM: CT Chest WITHOUT intravenous contrast 03/27/2020 4:01 PM INDICATION: ^dyspnea COMPARISON: Chest x-ray dated the same day. CT chest dated 02/05/2020 TECHNIQUE: Chest was scanned utilizing a multidetector helical scanner from the lung apex through the level of the adrenal glands without administration of IV contrast. Coronal and sagittal reformations were obtained. Routine protocol was performed. IV CONTRAST: None RADIATION DOSE: Total DLP: 488 mGy*cm. Dose modulation, iterative reconstruction, and/or weight based adjustment of the mA/kV was utilized to reduce the radiation dose to as low as reasonably achievable. COMPLICATIONS: None FINDINGS: LINES/ TUBES: None. LUNGS AND AIRWAYS: There are diffuse groundglass and patchy airspace opacities throughout the lungs. Negative for effusion or pneumothorax. HEART AND MEDIASTINUM: Thyroid gland is heterogeneous and mildly enlarged. Calcification is noted within the right thyroid lobe. No discrete nodule is identified. Enlarged mediastinal lymph nodes are similar to prior exam including in the pretracheal region and AP window. Heart is mildly enlarged. Coronary artery and aortic valve calcifications are noted. There is no pericardial effusion. Thoracic aorta demonstrates mild atherosclerotic changes of the arch. Thoracic aorta is of normal caliber UPPER ABDOMEN: Elevated right hemidiaphragm is noted. BONES: Negative for acute osseous abnormality. Mild to moderate multilevel degenerative changes of the spine are noted. No suspicious lytic or blastic lesion. SOFT TISSUES: Unremarkable. IMPRESSION: Compared to CT dated 02/05/2020 there is interval progression with similar appearance diffuse groundglass opacities and diffuse new patchy airspace opacities. Findings are concerning for multifocal infection, possibly atypical in nature given the combination of groundglass and patchy airspace opacities. Fungal pneumonia is a consideration along with atypical viral pneumonia. Stable reactive mediastinal adenopathy. Signed by: Juan José Stiles MD on 03/27/2020 4:28 PM
[2020-03-27] MEDS: INSULIN LISPRO 100 UNIT/1 ML 3ML VIAL SQ SCH ×3 (16:44→20:32)
[2020-03-27] MEDS: METHYLPREDNISOLONE SOD SUCC 125 MG/2ML VIAL IV SCH ×2 (17:10→20:33)
[2020-03-27 17:20] VITALS: BP 155/97
[2020-03-27 17:22] LABS: CREATINE KINASE MB 0.8 ng/mL (0-5.0)
[2020-03-27] MEDS: LEVOFLOXACIN 500MG/D5W 100ML 100 ML IV SCH (17:32)
[2020-03-27] MEDS: METOPROLOL TARTRATE 50 MG TAB PO SCH (17:32)
[2020-03-27] MEDS: FUROSEMIDE 40 MG TAB PO SCH (17:32)
[2020-03-27] MEDS: ROPINIROLE HCL 1 MG TAB PO SCH ×2 (17:33→20:33)
[2020-03-27] MEDS: GABAPENTIN 300 MG CAP PO SCH ×2 (17:33→23:29)
--- NOTE | 2020-03-27 18:19 | NUR ---
Patient resting in bed, Alert with No distress, Dr Treasure Serrano was here earlier, new orders recvd
--- NOTE | 2020-03-27 18:34 | Consultation ---
DATE OF CONSULTATION: Pulmonary Critical Care Consultation CHIEF COMPLAINT: Dyspnea and fever. HISTORY OF PRESENT ILLNESS: The patient is a 65-year-old woman. She has a history of sleep apnea and COPD. She also has a history of hypertension and diabetes. She uses oxygen at home as well as a nebulizer. She comes in complaining of 3 to 4 days of worsening dyspnea. She notes some cough and wheezing. She had some fever on the day of admission as well. PAST SURGICAL HISTORY: Appendectomy. PAST MEDICAL HISTORY: 1. Vague history of COPD. She does use nebulizer at home, but quit smoking many years ago. 2. Hypertension. 3. Atrial fibrillation. The patient is followed by Dr. Christianson. She had a stress test done in the last several years. SOCIAL HISTORY: The patient quit smoking many years ago. She is not a drinker. FAMILY HISTORY: Family history is noncontributory. ALLERGIES: THE PATIENT IS ALLERGIC TO PENICILLIN. REVIEW OF SYSTEMS: The patient does report some fevers. She has not febrile at this time. She has no headache. She did have some shortness of breath as well as some cough. She has no chest pain. She has no nausea or vomiting. She has no leg edema. PHYSICAL EXAMINATION: VITAL SIGNS: Blood pressure is 158/74, saturation is 96% on 4 L. HEENT: Shows no facial swelling or erythema. LYMPHATIC: Shows no submandibular, cervical or supraclavicular adenopathy. CARDIAC: Reveals regular rate and rhythm with normal S1 and S2. There are no murmurs or rubs heard. LUNGS: Auscultation of lungs reveals crackles and rhonchi bilaterally. There is no wheezing. ABDOMEN: Soft and nontender. There is no rebound or guarding. EXTREMITIES: Shows no leg edema or calf tenderness. There is no cyanosis or clubbing. SKIN: Shows no rashes. NEUROLOGICAL: Shows no focal abnormalities. LABORATORY DATA: BUN to creatinine ratio is 21 to 0.84. The other electrolytes are within normal limits. The total protein is 6.3 and the albumin is 3.7. White blood cell count is 5.5 and hemoglobin is 8.6. The platelet count is 164 RADIOGRAPHIC DATA: Chest x-ray shows some cardiomegaly and some airspace opacity is possibly representing pulmonary edema. IMPRESSION: 1. Chronic obstructive pulmonary disease with acute exacerbation. 2. Cardiomegaly and possible congestive heart failure on chest x-ray. 3. Chronic diastolic heart failure. 4. Atrial fibrillation. 5. Diabetes. 6. Hypertension. PLAN: 1. The patient will receive Solu-Medrol along with antibiotics for COPD exacerbation. 2. Bronchodilators. 3. Oxygen. 4. COVID-19 testing. 5. Echocardiogram. 6. Monitor and control blood sugars. MD CATHY Lund/ELVIN /[id number]
[2020-03-27 19:25] VITALS: BP_SYST 142; BP_SYST 145; BP_DIAS 71; BP_DIAS 99
[2020-03-27] MEDS: ALBUTEROL/IPRATROPIUM 3 ML NEB NEB PRN (19:45)
--- NOTE | 2020-03-27 19:52 | NUR ---
Received pt in bed awake a/o x4, C/o of some discomfort to BLE, will med per MAR. No s/sx of acute distress noted. Bed in low and locked position, personal items and call light within reach. Discussed plan of care with patient. Blood sugar noted at 505 will med per MAR and notify MD.Bedside report completed
[2020-03-27] MEDS: SIMVASTATIN 40 MG TAB PO SCH (20:33)
[2020-03-27 21:00] VITALS: BP 145/71
[2020-03-27] MEDS ORDERED: INSULIN GLARGINE 100 UNITS/ML VIAL SQ SCH ×2 (21:00)
[2020-03-27] MEDS ORDERED: INSULIN GLARGINE SQ SCH (21:00)
--- NOTE | 2020-03-27 22:35 | NUR ---
RECEIVED REPORT FROM PREVIOUS NURSE. PATIENT SITTING IN BED. PATIENT IN NO PAIN OR DISTRESS. CALL LIGHT WITHIN REACH.
[2020-03-28] VITALS (9 sets, daily range): BP systolic 142–179; BP diastolic 68–92
[2020-03-28] MEDS: HYDROCODONE/APAP 5MG-325MG TAB PO PRN ×2 (00:36→21:00)
--- NOTE | 2020-03-28 04:30 | NUR ---
CALLED RESPIRATORY BECAUSE PATIENT IS ASKING FOR A RESPIRATORY TREATMENT. WAITING FOR RESPIRATORY TO COME SEE THE PATIENT.
[2020-03-28] MEDS: GABAPENTIN 300 MG CAP PO SCH ×3 (05:03→17:07)
[2020-03-28 06:59] LABS: BASOPHILS % 0.2 % (0.0-1.0); HEMOGLOBIN 8.7 g/dL (12.0-16.0); LYMPHOCYTES # (AUTO) 0.3 (1.0-3.2); LYMPHOCYTES % 6.6 % (18.0-39.1); MEAN CORPUSCULAR HEMOGLOBIN 25.9 pg (28-32); MEAN CORPUSCULAR VOLUME 89.3 fL (81-99); MONOCYTES # (AUTO) 0.1 (0.2-0.8); NEUTROPHILS # (AUTO) 4.5 (2.1-6.9); PLATELET COUNT 156 x10e3/uL (140-360); RED BLOOD COUNT 3.36 x10e6/uL (3.6-5.1); RED CELL DISTRIBUTION WIDTH 20.9 % (11.7-14.4)
--- NOTE | 2020-03-28 07:00 | NUR ---
BEDSIDE SHIFT REPORT RECEIVED FROM GRAIN [employer] RN. PT DENIES NEEDS AT THIS TIME.
--- NOTE | 2020-03-28 07:13 | NUR ---
GAVE BEDSIDE SHIFT REPORT TO ONCOMING NURSE. CALL LIGHT WITHIN REACH. PATIENT IN BED. HOURLY ROUNDING PERFORMED. STILL WAITING FOR PATIENT TO HAVE RESPIRATORY TREATMENT
[2020-03-28 07:14] LABS: ALBUMIN 3.8 g/dL (3.5-5.0); ALBUMIN/GLOBULIN RATIO 1.4 (0.8-2.0); CALCIUM 8.9 mg/dL (8.4-10.2); CREATININE, SERUM 0.94 mg/dL (0.57-1.11)
[2020-03-28] MEDS ORDERED: GLIMEPIRIDE 2 MG TAB PO SCH (07:30)
[2020-03-28] MEDS: INSULIN LISPRO 100 UNIT/1 ML 3ML VIAL SQ SCH ×7 (07:30→21:00)
[2020-03-28] MEDS: ALBUTEROL/IPRATROPIUM 3 ML NEB NEB PRN ×4 (07:40→23:35)
[2020-03-28 08:08] LABS: ANISOCYTOSIS SLIGHT; LYMPHOCYTES % (MANUAL) 5 % (19-48); MICROCYTOSIS SLIGHT; MONOCYTES % (MANUAL) 2 % (3.4-9.0); NEUTROPHILS % (MANUAL) 93 % (40-74); PLATELET ESTIMATE ADEQUATE; PLATELET MORPHOLOGY COMMENT NORMAL; RBC MORPHOLOGY COMMENT ABNORMAL
[2020-03-28] MEDS: SPIRONOLACTONE 25 MG TAB PO SCH (08:28)
[2020-03-28] MEDS: LOSARTAN POTASSIUM 25 MG TAB PO SCH (08:28)
[2020-03-28] MEDS: FUROSEMIDE 40 MG TAB PO SCH ×2 (08:28→17:07)
[2020-03-28] MEDS: METHYLPREDNISOLONE SOD SUCC 125 MG/2ML VIAL IV SCH ×2 (08:28→20:38)
[2020-03-28] MEDS: ASPIRIN 81 MG CHEW TAB PO SCH (08:28)
[2020-03-28] MEDS: PANTOPRAZOLE SOD 40 MG TABEC PO SCH (08:29)
[2020-03-28] MEDS: ROPINIROLE HCL 1 MG TAB PO SCH ×4 (08:29→20:38)
[2020-03-28] MEDS: SERTRALINE HCL 100 MG TAB PO SCH (08:29)
[2020-03-28] MEDS: METOPROLOL TARTRATE 50 MG TAB PO SCH ×2 (08:29→17:07)
[2020-03-28] MEDS: POTASSIUM CHLORIDE 10MEQ EA PO SCH (08:30)
[2020-03-28] MEDS ORDERED: NON-FORMULARY MEDICATION (Losartan Potassium 50 MG) PO SCH (09:00)
--- NOTE | 2020-03-28 15:07 | Progress Note ---
DATE: SUBJECTIVE: The patient is afebrile. She reports some improvement, but still has some dyspnea. PHYSICAL EXAMINATION: VITAL SIGNS: Blood pressure is 170/87. Pulse ox is 95% on 4 L and the pulse is 84. HEENT: Shows no facial swelling or erythema. LYMPHATIC: Shows no submandibular, cervical, or supraclavicular adenopathy. CARDIAC: Reveals a regular rate and rhythm with normal S1 and S2. LUNGS: Auscultation of lungs reveals rhonchorous breath sounds bilaterally. There is no wheezing. ABDOMEN: Soft and nontender. There is no rebound or guarding. EXTREMITIES: Show no leg edema or calf tenderness. There is no cyanosis or clubbing. SKIN: Shows no rashes. NEUROLOGICAL: Shows no focal abnormalities. LABORATORY DATA: BUN to creatinine ratio is 33 to 0.94. Sodium is 135 and other electrolytes are within normal limits. Blood sugar is 443. IMPRESSION: 1. Chronic obstructive pulmonary disease with acute exacerbation. 2. Atypical pneumonia. 3. Diabetes, out of control. 4. Atrial fibrillation. 5. Hypertension. 6. Chronic diastolic heart failure. PLAN: 1. Taper Solu-Medrol. 2. Continue to monitor blood sugars and give insulin as needed. 3. Continue oxygen. 4. Continue Levaquin for bacterial pneumonia. 5. Speech therapy evaluation. 6. Physical therapy. Dhruv Serrano MD [facility]/MODL /[id number]
[2020-03-28] MEDS: LEVOFLOXACIN 500MG/D5W 100ML 100 ML IV SCH (16:08)
--- NOTE | 2020-03-28 19:55 | NUR ---
RECEIVED PT IN BED AOX3 PT DENIES PAIN RT FA 20 G S/L CALL LIGHT WITH IN REACH ,CONTINUE TO MONITOR
[2020-03-28] MEDS: SIMVASTATIN 40 MG TAB PO SCH (20:38)
[2020-03-28] MEDS: INSULIN GLARGINE 100 UNITS/ML VIAL SQ SCH (21:00)
[2020-03-29] VITALS (7 sets, daily range): BP systolic 143–184; BP diastolic 60–89
[2020-03-29] MEDS: GABAPENTIN 300 MG CAP PO SCH ×4 (00:38→17:17)
[2020-03-29] MEDS ORDERED: GUAIFENESIN/DEXTROMETHORPHAN LIQD 5 ML UDC NG PRN (01:00)
[2020-03-29] MEDS: ALBUTEROL/IPRATROPIUM 3 ML NEB NEB PRN ×4 (04:20→20:15)
--- NOTE | 2020-03-29 05:14 | NUR ---
PT C/O PAIN AND GIVEN ORDERED PAIN MEDICATION ,PT RESTING ,CALL LIGHT WITH IN REACH.CONRINUE TO MONITOR
[2020-03-29] MEDS: HYDROCODONE/APAP 5MG-325MG TAB PO PRN ×2 (06:02→20:33)
--- NOTE | 2020-03-29 07:00 | NUR ---
BEDSIDE SHIFT REPORT RECEIVED FROM [employer]OR [employer] RN. PT DENIES NEEDS AT THIS TIME.
--- NOTE | 2020-03-29 07:00 | NUR ---
BEDSIDE SHIFT REPORT RECEIVED FROM [employer] RN. PT DENIES NEEDS AT THIS TIME.
--- NOTE | 2020-03-29 07:13 | NUR ---
BEDSIDE REPORT GIVEN TO THE ONCOMING NURSE
[2020-03-29] MEDS: INSULIN LISPRO 100 UNIT/1 ML 3ML VIAL SQ SCH ×7 (07:30→21:51)
[2020-03-29] MEDS: POTASSIUM CHLORIDE 10MEQ EA PO SCH (09:14)
[2020-03-29] MEDS: LOSARTAN POTASSIUM 25 MG TAB PO SCH (09:14)
[2020-03-29] MEDS: METOPROLOL TARTRATE 50 MG TAB PO SCH ×2 (09:14→17:17)
[2020-03-29] MEDS: ASPIRIN 81 MG CHEW TAB PO SCH (09:14)
[2020-03-29] MEDS: METHYLPREDNISOLONE SOD SUCC 125 MG/2ML VIAL IV SCH ×2 (09:14→20:29)
[2020-03-29] MEDS: PANTOPRAZOLE SOD 40 MG TABEC PO SCH (09:14)
[2020-03-29] MEDS: FUROSEMIDE 40 MG TAB PO SCH ×2 (09:14→17:16)
[2020-03-29] MEDS: SPIRONOLACTONE 25 MG TAB PO SCH (09:14)
[2020-03-29] MEDS: ROPINIROLE HCL 1 MG TAB PO SCH ×4 (09:14→20:29)
[2020-03-29] MEDS: SERTRALINE HCL 100 MG TAB PO SCH (09:15)
[2020-03-29] MEDS ORDERED: NYSTATIN 15 GM POWDER UD BTL TOP PRN (11:15)
[2020-03-29] MEDS: LEVOFLOXACIN 500MG/D5W 100ML 100 ML IV SCH (17:17)
--- NOTE | 2020-03-29 17:21 | Progress Note ---
DATE: SUBJECTIVE: The patient is still short of breath, although she feels improved. She is off oxygen. PHYSICAL EXAMINATION: VITAL SIGNS: Stable. The blood pressure is 184/90, saturation is 99%, and the pulse is 60. HEENT: Shows no facial swelling or erythema. LYMPHATIC: Shows no submandibular, cervical, or supraclavicular adenopathy. CARDIAC: Reveals regular rate and rhythm with normal S1 and S2. LUNGS: Auscultation of lungs reveals rhonchorous breath sounds bilaterally. There is no wheezing. ABDOMEN: Soft and nontender. There is no rebound or guarding. EXTREMITIES: Shows no leg edema or calf tenderness. There is no cyanosis or clubbing. SKIN: Shows no rashes. IMPRESSION: 1. Chronic obstructive pulmonary disease with acute exacerbation. 2. Community-acquired pneumonia. 3. Diabetes out of control. 4. Atrial fibrillation. 5. Chronic diastolic heart failure. 6. Hypertension. PLAN: 1. Repeat chest x-ray tomorrow morning. 2. Repeat CBC and CMP tomorrow morning. 3. Continue to wean oxygen. 4. Continue to adjust insulin as needed. 5. Continue Levaquin. 6. Out of bed as tolerated. Dhruv Serrano MD [facility]/MODL /[id number]
[2020-03-29] MEDS: HYDROCODONE/CHLORPHENIRAMINE 5 ML LIQCR PO PRN (18:22)
--- NOTE | 2020-03-29 19:26 | NUR ---
RECEIVED PT IN BED AOX3 DENIES PAIN .NO ACUTE DISTRESS NOTED .CALL LIGHT WITH IN REACH ,CONTINUE TO MONITOR
[2020-03-29] MEDS: SIMVASTATIN 40 MG TAB PO SCH (20:30)
[2020-03-29] MEDS: INSULIN GLARGINE 100 UNITS/ML VIAL SQ SCH (21:00)
[2020-03-30] VITALS (7 sets, daily range): BP systolic 115–177; BP diastolic 70–90
[2020-03-30] MEDS: ALBUTEROL/IPRATROPIUM 3 ML NEB NEB PRN ×6 (00:45→23:40)
[2020-03-30] MEDS: HYDROCODONE/APAP 5MG-325MG TAB PO PRN ×2 (04:36→21:39)
[2020-03-30] MEDS: HYDROCODONE/CHLORPHENIRAMINE 5 ML LIQCR PO PRN ×2 (05:00→15:56)
--- NOTE | 2020-03-30 05:39 | NUR ---
PT C/O PAIN AND COUGH GIVEN ORDERED PAIN MEDICATION AND COUGH MEDICATION .PT RESTING CONTINUE TO MONITOR
[2020-03-30 06:10] LABS: HEMATOCRIT 31.2 % (34.2-44.1); HEMOGLOBIN 8.8 g/dL (12.0-16.0); LYMPHOCYTES # (AUTO) 0.3 (1.0-3.2); LYMPHOCYTES % 5.9 % (18.0-39.1); MEAN CORPUSCULAR HEMOGLOBIN 24.3 pg (28-32); MEAN CORPUSCULAR HGB CONC 28.2 g/dL (31-35); MEAN CORPUSCULAR VOLUME 86.2 fL (81-99); MONOCYTES # (AUTO) 0.1 (0.2-0.8); MONOCYTES % 2.3 % (4.4-11.3); NEUTROPHILS # (AUTO) 4.3 (2.1-6.9); NEUTROPHILS % 90.1 % (38.7-80.0); PLATELET COUNT 160 x10e3/uL (140-360); RED BLOOD COUNT 3.62 x10e6/uL (3.6-5.1); RED CELL DISTRIBUTION WIDTH 19.7 % (11.7-14.4)
[2020-03-30 06:23] LABS: ALBUMIN 3.6 g/dL (3.5-5.0); ALBUMIN/GLOBULIN RATIO 1.4 (0.8-2.0); ANION GAP 16.7 mmol/L (8-16); CALCIUM 8.4 mg/dL (8.4-10.2); CREATININE, SERUM 1.01 mg/dL (0.57-1.11); POTASSIUM 4.7 mmol/L (3.5-5.1)
--- NOTE | 2020-03-30 06:51 | Diagnostic Imaging Report ---
EXAMINATION: CHEST 2 VIEWS INDICATION: ^resp failure COMPARISON: 03/27/2020 FINDINGS: PA and lateral views TUBES and LINES: None. LUNGS: Lungs are well inflated. Persistent bilateral airspace opacities. PLEURA: No pleural effusion or pneumothorax. HEART AND MEDIASTINUM: The cardiomediastinal silhouette is unremarkable. BONES AND SOFT TISSUES: No acute osseous lesion. Soft tissues are unremarkable. UPPER ABDOMEN: No free air under the diaphragm. IMPRESSION: Not significantly changed bilateral airspace opacities, concerning for multifocal pneumonia. Signed by: Dr. Mohit Brandon MD on 03/30/2020 6:47 AM
[2020-03-30] MEDS: GABAPENTIN 300 MG CAP PO SCH ×4 (07:10→17:16)
--- NOTE | 2020-03-30 07:15 | NUR ---
BEDSIDE REPORT GIVEN TO THE ONCOMING NURSE
--- NOTE | 2020-03-30 07:28 | Progress Note ---
DATE: 03/30/2020 SUBJECTIVE: Ms. Painter is a 65-year-old female with history of diabetes, hypertension, COPD, CHF, atrial fibrillation, anxiety, depression, hyperlipidemia, back pain, came to the emergency room complaining of shortness of breath, wheezing, and cough. She also has some fever. COVID test came back negative. Chest x-ray and chest CT showed probably pneumonia, so the patient was admitted to the hospital, started on IV antibiotics and neb treatments. PHYSICAL EXAMINATION: GENERAL: Today, she is awake and alert. VITAL SIGNS: Temperature is 97.9, blood pressure 169/74. HEART: Regular rate. LUNGS: Bilateral crackles. ABDOMEN: Distended and soft. LABORATORY DATA: On the blood work, white count is 4.75, hemoglobin is 8.8, hematocrit is 31.2. COVID test negative. Potassium 5.0, creatinine 0.94, glucose 443. Chest CT shows diffuse ground-glass opacity and diffuse new patchy air space opacities consistent with multifocal infection. ASSESSMENT AND PLAN: 1. Chronic obstructive pulmonary disease exacerbation. 2. Multifocal pneumonia. 3. Diabetes type 2 with hyperglycemia. 4. Hypertension. 5. Hyperlipidemia. 6. Anemia. 7. Depression. 8. Chronic back pain. 9. Sleep apnea. 10. Atrial fibrillation. 11. Chronic diastolic congestive heart failure. PLAN: At present time is to we are going to repeat blood work and chest x-ray today, try to wean her off from oxygen. Continue ADA diet and sliding scale and continue insulin. The insulin, she uses at home. Continue Levaquin. PT/OT evaluation. Overall prognosis of the patient remains guarded. All this was discussed in detail with the patient. All questions were answered to satisfaction. I spent more than 35 minutes examining the patient, reviewing overnight event, lab results, and discussing plan of care with her. Lucille Huerta MD [facility]/MODL /[id number]
[2020-03-30] MEDS: METHYLPREDNISOLONE SOD SUCC 125 MG/2ML VIAL IV SCH (09:06)
[2020-03-30] MEDS: LOSARTAN POTASSIUM 25 MG TAB PO SCH (09:08)
[2020-03-30] MEDS: ROPINIROLE HCL 1 MG TAB PO SCH ×3 (09:08→17:16)
[2020-03-30] MEDS: SERTRALINE HCL 100 MG TAB PO SCH (09:08)
[2020-03-30] MEDS: PANTOPRAZOLE SOD 40 MG TABEC PO SCH (09:09)
[2020-03-30] MEDS: ASPIRIN 81 MG CHEW TAB PO SCH (09:09)
[2020-03-30] MEDS: METOPROLOL TARTRATE 50 MG TAB PO SCH ×2 (09:10→17:16)
[2020-03-30] MEDS: FUROSEMIDE 40 MG TAB PO SCH ×2 (09:11→17:16)
[2020-03-30] MEDS: POTASSIUM CHLORIDE 10MEQ EA PO SCH (09:11)
[2020-03-30] MEDS: SPIRONOLACTONE 25 MG TAB PO SCH (09:20)
[2020-03-30] MEDS: INSULIN LISPRO 100 UNIT/1 ML 3ML VIAL SQ SCH ×7 (10:14→21:00)
[2020-03-30] MEDS: LEVOFLOXACIN 500MG/D5W 100ML 100 ML IV SCH (15:54)
--- NOTE | 2020-03-30 20:11 | Progress Note ---
DATE: 03/30/2020 Pulmonary Medicine Progress Note Patient of Dr. Rigo Alexander. SUBJECTIVE: The patient was seen and examined at bedside. The patient reportedly had excess sleepiness. The patient will need about 10 minutes of sternal rubbing to wake her up. Therefore, came emergently to evaluate. The patient had ABG ordered and ABG demonstrated 7.35/59/oxygen as noted. The patient had medication reviewed and adjustments were being made here. Chest x-ray was done this morning and was demonstrating more less stability, which include low lung volumes with mosaic lung pattern that was noted on the CAT scan previous bilaterally. The patient with hyperglycemic problems earlier today, which are now better, but recent glucose level was reasonable and thought not causative to the hypersomnolence. When I came to bedside, the patient is already easily awake and not as sleepy as I was reported just half an hour previous. REVIEW OF SYSTEMS: No headaches. No rash. OBJECTIVE: VITAL SIGNS: Afebrile. Vital signs noted. Reviewed per the chart record. GENERAL: No distress, calm, only minimally sleepy, alert, in bed. HEENT: Normocephalic, atraumatic. NECK: Supple. Throat midline. LUNGS: Bilateral air entry slightly limited, slightly low, otherwise unremarkable. CARDIOVASCULAR: S1, S2. No murmurs, rubs, or gallops. ABDOMEN: Soft, obese, nontender. EXTREMITIES: No clubbing. No cyanosis. There is 0 to trace edema. INTEGUMENT: No rash. No purpura. LABORATORY DATA: 5 white blood count, 31 hematocrit, 160 platelets. 4.7 potassium, 39 BUN, 1.0 creatinine. IMPRESSION AND PLAN: 1. Abnormal chest radiography, bilateral mosaicism consistent with pneumonitis. 2. Treat as acute pneumonia. 3. Possible underlying chronic interstitial lung disease. 4. Less likely fluid overload, BNP level 25. 5. Encephalopathy, toxic, metabolic. Mild and the patient is already slightly improved. 6. On June 27, 2018 echocardiogram, LVEF 55% to 60%, aortic valve area 2.8 cm2, slightly difficult echo. 7. Obesity, obstructive sleep apnea. 8. Possible chronic obstructive pulmonary disease, former smoker. 9. Hypertension. 10. Atrial fibrillation. 11. Chronic diastolic heart failure. 12. Atrial fibrillation. 13. Diabetes. 14. Hypertension. 15. Anemia, mild. At this time, continue supportive oxygen therapy. The patient will have medicines down just including the Requip from 4 times a day to once a day. Cautious followup on other medicines. As of now, she is not getting the p.r.n. hydrocodone medicines. We will follow. Followup glycemia. We will order CPAP for night. Continue weaning steroids and bronchodilators p.r.n. if needed. Thank you very much, Dr. Huerta. Please call for questions. MD FAVIOLA Jo/ELVIN /[id number]
[2020-03-30] MEDS ORDERED: METHYLPREDNISOLONE SOD SUCC 125 MG/2ML VIAL IV SCH (21:00)
[2020-03-30] MEDS: INSULIN GLARGINE 100 UNITS/ML VIAL SQ SCH (21:00)
[2020-03-30] MEDS: METHYLPREDNISOLONE SOD SUCC 40 MG/ML VIAL 1ML IV SCH (21:12)
[2020-03-30] MEDS: SIMVASTATIN 40 MG TAB PO SCH (21:12)
[2020-03-30 21:40] LABS: ABG HCO3 33 mmol/L (22-26); ABG PCO2 59 mmHg (35-45); ABG PH 7.35 (7.35-7.45); ABG PO2 95 mmHg (80-105); ABG TCO2 35
[2020-03-31] VITALS (8 sets, daily range): BP systolic 136–180; BP diastolic 65–90
[2020-03-31] MEDS: GABAPENTIN 300 MG CAP PO SCH ×5 (00:37→23:30)
[2020-03-31] MEDS: METOPROLOL TARTRATE 50 MG TAB PO SCH ×2 (06:01→16:18)
[2020-03-31] MEDS: ALBUTEROL/IPRATROPIUM 3 ML NEB NEB PRN ×4 (07:10→22:25)
[2020-03-31] MEDS: INSULIN LISPRO 100 UNIT/1 ML 3ML VIAL SQ SCH ×6 (07:30→21:46)
[2020-03-31] MEDS: HYDROCODONE/CHLORPHENIRAMINE 5 ML LIQCR PO PRN ×2 (08:30→19:08)
[2020-03-31] MEDS: SPIRONOLACTONE 25 MG TAB PO SCH (08:31)
[2020-03-31] MEDS: ASPIRIN 81 MG CHEW TAB PO SCH (08:31)
[2020-03-31] MEDS: LOSARTAN POTASSIUM 25 MG TAB PO SCH (08:32)
[2020-03-31] MEDS: SERTRALINE HCL 100 MG TAB PO SCH (08:33)
[2020-03-31] MEDS: POTASSIUM CHLORIDE 10MEQ EA PO SCH (08:33)
[2020-03-31] MEDS: PANTOPRAZOLE SOD 40 MG TABEC PO SCH (08:33)
[2020-03-31] MEDS: FUROSEMIDE 40 MG TAB PO SCH ×2 (08:33→16:18)
[2020-03-31] MEDS: METHYLPREDNISOLONE SOD SUCC 40 MG/ML VIAL 1ML IV SCH ×2 (08:34→21:44)
--- NOTE | 2020-03-31 08:55 | Diagnostic Imaging Report ---
EXAMINATION: CHEST SINGLE (PORTABLE) INDICATION: CHF COMPARISON: Chest radiograph 03/30/2020, chest CT 03/27/2020 FINDINGS: LINES/TUBES:EKG leads overlie the chest. LUNGS:The lung volumes are low. Slight interval decrease in bilateral multifocal airspace and interstitial opacities. PLEURA:No pleural effusion or pneumothorax. MEDIASTINUM:The cardiomediastinal silhouette appears unchanged in size and shape. BONES/SOFT TISSUES:No acute osseous injury. ABDOMEN:No free air under the diaphragm. IMPRESSION: Slight interval decrease in bilateral multifocal airspace and interstitial opacities, which remains concerning for multifocal infection. Signed by: Kiley Bernal MD on 03/31/2020 8:52 AM
--- NOTE | 2020-03-31 09:53 | Progress Note ---
DATE: 03/31/2020 SUBJECTIVE: Ms. Painter is a 65-year-old female with history of diabetes, hypertension, COPD, CHF, atrial fibrillation, anxiety, depression, hyperlipidemia, and back pain came to the emergency room complaining of shortness of breath, wheezing, and cough. COVID test was negative. She was found to have pneumonitis. She was started on treatment. PHYSICAL EXAMINATION: GENERAL: At the present time, she is awake and alert. She states she is still short of breath. VITAL SIGNS: Temperature is 98.6, blood pressure 170/90. HEART: Regular irregular. LUNGS: Poor respiratory effort. ABDOMEN: Soft. LABORATORY DATA: White count is 4.75, hemoglobin is 8.8, hematocrit 31.2, potassium 4.7, creatinine 1.01, glucose 332. COVID test came back negative. Repeat chest x-ray done yesterday shows slight interval decrease in bilateral multifocal airspace and interstitial opacities, which remains concerning for multifocal infection. ASSESSMENT AND PLAN: 1. Bilateral infiltrates concerning for pneumonitis. 2. Chronic interstitial lung disease. 3. Chronic obstructive pulmonary disease exacerbation. 4. Diabetes type 2 with hyperglycemia. 5. Hypertension. 6. Hyperlipidemia. 7. Anemia. 8. Depression. 9. Chronic back pain. 10. Sleep apnea. 11. Atrial fibrillation. 12. Chronic diastolic congestive heart failure. PLAN: At present time is to continue ADA diet. Continue insulin. Dr. Gutierrez is following the patient. Continue antibiotics. PT, OT. Weaning off neb treatments and oxygen slowly. CPAP at night was ordered. Wean off the steroids and we will follow up her today and we will see depending on clinical course and see if we can discharge her in 24 to 48 hours. All this was discussed with the patient. All questions were answered to satisfaction. MD [facility] Schmidt/MODL /[id number]
[2020-03-31] MEDS: HYDROCODONE/APAP 5MG-325MG TAB PO PRN (10:24)
--- NOTE | 2020-03-31 11:37 | NUR ---
Paged/Called Dr. Lucille Huerta at [phone] and spoke with Luisa regarding persistent elevated blood pressure and recent blood pressure of 180/85. Awaiting call back.
--- NOTE | 2020-03-31 12:33 | NUR ---
Dr. Huerta called back, ordered Hydralazine 50mg by mouth every eight hours as needed for blood pressure greater than 160/90. Increased daily Losartan to 100mg by mouth. Okay to give 1130 insulin. Orders read back and verified.
[2020-03-31] MEDS ORDERED: HYDRALAZINE HCL 25 MG TAB PO PRN (12:45)
[2020-03-31] MEDS ORDERED: HYDROCODONE/APAP 10MG-325MG TAB PO ONE (13:35)
--- NOTE | 2020-03-31 14:20 | Progress Note ---
DATE: SUBJECTIVE: The patient feels better. She has less dyspnea. She is not having any confusion. PHYSICAL EXAMINATION: VITAL SIGNS: Blood pressure is 152/65, saturation is 100% on 4 L, and the respiratory rate is 18. HEENT: Shows no facial swelling or erythema. LYMPHATIC: Shows no submandibular, cervical, or supraclavicular adenopathy. CARDIAC: Reveals regular rate and rhythm with normal S1 and S2. LUNGS: Auscultation of the lungs reveals crackles and rhonchi bilaterally. There is no wheezing. ABDOMEN: Soft and nontender. There is no rebound or guarding. EXTREMITIES: Shows no leg edema or calf tenderness. There is no cyanosis clubbing. SKIN: Shows no rashes. NEUROLOGICAL: Shows no focal abnormalities. IMPRESSION: 1. Chronic obstructive pulmonary disease with acute exacerbation. 2. Community-acquired pneumonia. 3. Diabetes out of control. 4. Atrial fibrillation. 5. Hypertension. PLAN: 1. Continue current antibiotics. 2. Continue bronchodilators. 3. Wean oxygen. 4. Monitor and control blood sugars. 5. Hydrocortisone as needed for pain. Dhruv Serrano MD [facility]/MODL /[id number]
[2020-03-31] MEDS: LEVOFLOXACIN 500MG/D5W 100ML 100 ML IV SCH (16:18)
--- NOTE | 2020-03-31 19:10 | NUR ---
PATIENT RECEIVED AT BEDSIDE REPORT. PATIENT IS RESTING IN BED, AAOX3. RESP EVEN AND UNLABORED. NO ACUTE DISTRESS NOTED. TELE IN PLACE. CALL LIGHT WITHIN REACH. INSTRUCT PATIENT TO CALL FOR ANY ASSISTANCE. BED LOW/LOCKED. SIDE RAIL UP X2. CONTINUE TO MONITOR CLOSELY
[2020-03-31] MEDS: ROPINIROLE HCL 2 MG TAB PO SCH (21:44)
[2020-03-31] MEDS: SIMVASTATIN 40 MG TAB PO SCH (21:44)
[2020-03-31] MEDS: INSULIN GLARGINE 100 UNITS/ML VIAL SQ SCH (21:45)
[2020-04-01] VITALS (8 sets, daily range): BP systolic 137–175; BP diastolic 52–91
[2020-04-01] MEDS: ALBUTEROL/IPRATROPIUM 3 ML NEB NEB PRN ×2 (03:55→11:05)
[2020-04-01] MEDS: GABAPENTIN 300 MG CAP PO SCH ×5 (06:00→23:50)
--- NOTE | 2020-04-01 07:00 | NUR ---
RCD PT AT BED PT IS ALERT AND ORIENTED RESTING ON BED IV PATENT BY SALINE FLUSH BED LOW AND LOCKED CALL LIGHT IN REACH
--- NOTE | 2020-04-01 07:00 | NUR ---
RCD PT AT BED PT IS ALERT AND ORIENTED RESTING ON BED IV PATENT BY SALINE FLUSH BED LOW AND LOCKED CALL LIGHT IN REACH
[2020-04-01] MEDS: INSULIN LISPRO 100 UNIT/1 ML 3ML VIAL SQ SCH ×7 (07:30→21:00)
[2020-04-01] MEDS: ASPIRIN 81 MG CHEW TAB PO SCH (09:00)
[2020-04-01] MEDS: PANTOPRAZOLE SOD 40 MG TABEC PO SCH (09:00)
[2020-04-01] MEDS: METOPROLOL TARTRATE 50 MG TAB PO SCH ×2 (09:00→16:38)
[2020-04-01] MEDS: METHYLPREDNISOLONE SOD SUCC 40 MG/ML VIAL 1ML IV SCH ×2 (09:00→23:25)
[2020-04-01] MEDS: POTASSIUM CHLORIDE 10MEQ EA PO SCH (09:00)
[2020-04-01] MEDS: LOSARTAN POTASSIUM 100 MG TAB PO SCH (09:00)
[2020-04-01] MEDS: SERTRALINE HCL 100 MG TAB PO SCH (09:00)
[2020-04-01] MEDS: FUROSEMIDE 40 MG TAB PO SCH ×2 (09:00→16:37)
[2020-04-01] MEDS: SPIRONOLACTONE 25 MG TAB PO SCH (09:00)
--- NOTE | 2020-04-01 10:43 | Discharge Summary ---
HISTORY: Ms. Painter is a 65-year-old female with history of diabetes, hypertension, COPD, CHF, atrial fibrillation, depression, anxiety, hyperlipidemia, came to the emergency room complaining of shortness of breath with wheezing and cough. COVID test came back negative. She was found to have pneumonitis. She was started on IV antibiotics and steroids. PHYSICAL EXAMINATION: GENERAL: Today, she is awake and alert. She is feeling better. VITAL SIGNS: Temperature is 98.3, blood pressure 175/70, heart is regular. LUNGS: Clear to auscultation. ABDOMEN: Soft. LABORATORY DATA: On the blood work; white count is 4.75, hemoglobin 8.8, hematocrit 31.2. COVID test came back negative. Blood sugar today is 194. Chest x-ray done yesterday still shows some slight interval decrease in the multifocal airspace and interstitial opacities. ASSESSMENT: 1. Bilateral infiltrates concerning for pneumonitis. 2. Chronic interstitial lung disease. 3. Chronic obstructive pulmonary disease exacerbation. 4. Diabetes type 2 with hyperglycemia. 5. Hypertension. 6. Hyperlipidemia. 7. Anemia. 8. Depression. 9. Chronic back pain. 10. Sleep apnea. 11. Atrial fibrillation. 12. Chronic diastolic congestive heart failure. PLAN: At the present time is to discharge the patient home if it is okay with consultants. Continue ADA diet. Continue insulin. Continue CPAP at home. Continue other medications. She needs to follow up with me in 1 week. She is to call me or come back to the emergency room if any recurrent problem. Please see home medication reconciliation list. All this was discussed in detail with the patient. All questions were answered to satisfaction. MD MARLY Schmidt/MODL /[id number]
--- NOTE | 2020-04-01 14:00 | NUR ---
PAGED AND TALKED DR WELSH REGARDING DISCHARGE HE IS OK TO DISCHARGE
--- NOTE | 2020-04-01 14:19 | NUR ---
PAGED AND TALKED DR JUAN REGARDING DISCHARGE HE SAID HE COMING TO SEE THE PT
--- NOTE | 2020-04-01 15:21 | NUR ---
DR JUAN CAME TO SEE THE PT HE SAID PT CAN GO HOME ON TOMORROW
[2020-04-01] MEDS ORDERED: LEVOFLOXACIN 500 MG TAB PO SCH (17:00)
--- NOTE | 2020-04-01 17:22 | Progress Note ---
DATE: SUBJECTIVE: The patient is still complaining of some dyspnea. She is still requiring 4 L of oxygen. She has less cough. PHYSICAL EXAMINATION: VITAL SIGNS: Blood pressure is 156/68 and saturation is 96% on 4 L. The pulse is 59. HEENT: Shows no facial swelling or erythema. LYMPHATIC: Shows no submandibular, cervical, or supraclavicular adenopathy. CARDIAC: Reveals regular rate and rhythm with normal S1 and S2. LUNGS: Auscultation of lungs reveals rhonchorous breath sounds bilaterally. There is no wheezing. ABDOMEN: Soft and nontender. There is no rebound or guarding. EXTREMITIES: Show no leg edema or calf tenderness. There is no cyanosis or clubbing. SKIN: Shows no rashes. NEUROLOGICAL: Shows no focal abnormalities. LABORATORY DATA: White blood cell count is 4.7, the hemoglobin is 8.8, and the platelet count is 160. IMPRESSION: 1. Community-acquired pneumonia with multifocal infiltrates. 2. Chronic obstructive pulmonary disease with acute exacerbation. 3. Diabetes, out of control. 4. Atrial fibrillation. 5. Hypertension. PLAN: 1. Continue current antibiotics. 2. The patient will require repeat chest x-ray as an outpatient in 3 to 4 weeks to make sure pneumonia is resolved. 3. Taper steroids. 4. Home oxygen. 5. Continue to adjust insulin and monitor blood sugars. 6. Physical therapy. Dhruv Serrano MD [facility]/[place] /[id number]
--- NOTE | 2020-04-01 18:00 | NUR ---
WEANED THE OXYGEN IN TO 2 LTRS
--- NOTE | 2020-04-01 18:45 | NUR ---
PT RESTING ON BED BED SIDE REPORT GIVEN TO ONCOMING NURSE
[2020-04-01] MEDS: HYDROCODONE/APAP 5MG-325MG TAB PO PRN (18:56)
[2020-04-01] MEDS ORDERED: INSULIN GLARGINE 100 UNITS/ML VIAL SQ SCH (21:00)
--- NOTE | 2020-04-01 21:45 | NUR ---
PATIENT RESTING IN BED IN STABLE CONDITION, NO SIGNS OF DISTRESS NOTED. IV HAS BEEN ACCIDENTLY DISLODGED BY PATIENT AND WAS UNSUCCESSFUL AFTER ATTEMPTING TO START A NEW ONE. AWAITING FOR ANOTHER NURSE TO START ANOTHER IV. PATIENT VOICES PAIN AT A LEVEL OF 8 AND WAS PREVIOUSLY MEDICATED ORDERED. BED IS IN LOW POSITION, SIDE RAILS ARE UP, CALL LIGHT IS WITHIN EASY REACH, WILL CONTINUE TO MONITOR.
[2020-04-01] MEDS: ROPINIROLE HCL 2 MG TAB PO SCH (22:00)
[2020-04-01] MEDS: SIMVASTATIN 40 MG TAB PO SCH (22:00)
[2020-04-02] VITALS: BP 134/59
[2020-04-02] MEDS: HYDROCODONE/APAP 5MG-325MG TAB PO PRN (01:15)
--- NOTE | 2020-04-02 03:45 | NUR ---
AFTER MANY UNSUCCESSFUL ATTEMPTS BY OTHER NURSES, NEW IV STARTED ON RIGHT HAND BY ER NURSE. WAS STARTED LATER DUE TO ER BEING VERY BUSY.
[2020-04-02] MEDS: METHYLPREDNISOLONE SOD SUCC 40 MG/ML VIAL 1ML IV SCH ×2 (03:49→09:00)
[2020-04-02 04:00] VITALS: BP 142/57
[2020-04-02] MEDS: GABAPENTIN 300 MG CAP PO SCH (06:20)
--- NOTE | 2020-04-02 07:00 | NUR ---
RCD PT AT BED PT IS ALERT AND ORIENTED RESTING ON BED IV PATENT BY SALINE FLUSH BED LOW AND LOCKED CALL LIGHT IN REACH
[2020-04-02] MEDS: INSULIN LISPRO 100 UNIT/1 ML 3ML VIAL SQ SCH ×4 (07:30→11:30)
[2020-04-02] MEDS ORDERED: LEVAQUIN500 MG PO (08:00)
[2020-04-02] MEDS ORDERED: PREDNISONE10 MG PO (08:02)
[2020-04-02 08:34] VITALS: BP 129/60
[2020-04-02 08:47] VITALS: BP 129/60
[2020-04-02] MEDS: LOSARTAN POTASSIUM 100 MG TAB PO SCH (09:00)
[2020-04-02] MEDS: SPIRONOLACTONE 25 MG TAB PO SCH (09:00)
[2020-04-02] MEDS: SERTRALINE HCL 100 MG TAB PO SCH (09:00)
[2020-04-02] MEDS: PANTOPRAZOLE SOD 40 MG TABEC PO SCH (09:00)
[2020-04-02] MEDS: ASPIRIN 81 MG CHEW TAB PO SCH (09:00)
[2020-04-02] MEDS: METOPROLOL TARTRATE 50 MG TAB PO SCH (09:00)
[2020-04-02] MEDS: FUROSEMIDE 40 MG TAB PO SCH (09:00)
[2020-04-02] MEDS: POTASSIUM CHLORIDE 10MEQ EA PO SCH (09:00)
--- NOTE | 2020-04-02 09:50 | Discharge Summary ---
HISTORY: Ms. Xochitl Painter is a 65-year-old female with history of hypertension, COPD, CHF, diabetes, atrial fibrillation, depression, anxiety, hyperlipidemia, came to the emergency room complaining of shortness of breath, wheezing, and cough. COVID test was negative. She was found to have pneumonitis. She was started on antibiotics and neb treatments as well as steroids. She is doing better and the plan is to discharge her home on oxygen. PHYSICAL EXAMINATION: GENERAL: Today, she is awake and alert. VITAL SIGNS: Temperature is 97 and blood pressure 129/60. HEART: Regular rate. LUNGS: Clear to auscultation. ABDOMEN: Soft. LABORATORY DATA: On the blood work; white count 4.75, hemoglobin 8.8, hematocrit 31.2. Sugar today is 92. COVID test was negative. Chest x-ray show mild improvement. ASSESSMENT: 1. Bilateral infiltrates concerning for pneumonitis. 2. Chronic interstitial lung disease. 3. Chronic obstructive pulmonary disease. 4. Diabetes type 2 with hyperglycemia, improving. 5. Hypertension. 6. Hyperlipidemia. 7. Anemia. 8. Depression. 9. Chronic back pain. 10. Sleep apnea. 11. Atrial fibrillation. 12. Chronic diastolic congestive heart failure. PLAN: At the present time is to discharge the patient home on ADA diet. Continue insulin. She has CPAP at home. She is also going to be on oxygen. She is also going to be on p.o. Levaquin and prednisone to taper down. Continue other home medications. Follow up with consultants as directed by them. All this was discussed in detail with the patient. All questions were answered to satisfaction. Please see home medication reconciliation list. MD MARLY Schmidt/MODL /[id number]
--- NOTE | 2020-04-02 10:44 | NUR ---
PAGED AND TALKED DR JUAN REGARDING DISCHARGE GOT THE DISCHARGE APPROVAL
--- NOTE | 2020-04-02 11:32 | NUR ---
PT WENT HOME IN SAFE CONDITION WITH TAXI
--- NOTE | 2020-04-02 11:56 | Progress Note ---
DATE: Pulmonary Critical Care Progress Note SUBJECTIVE: The patient feels better. She has less dyspnea. She is now off oxygen. PHYSICAL EXAMINATION: VITAL SIGNS: Stable. She is afebrile. CARDIAC: Reveals regular rate and rhythm with normal S1 and S2. LUNGS: Auscultation of lungs shows clear breath sounds bilaterally. There is no wheezing. ABDOMEN: Soft and nontender. There is no rebound or guarding. EXTREMITIES: Shows no leg edema or calf tenderness. There is no cyanosis or clubbing. SKIN: Shows no rashes. NEUROLOGICAL: Shows no focal abnormalities. IMPRESSION: 1. Community-acquired pneumonia with multifocal infiltrates. 2. Chronic obstructive pulmonary disease. 3. Diabetes, out of control. 4. Atrial fibrillation. 5. Hypertension. PLAN: 1. Complete current antibiotics. 2. DC home and follow up for repeat chest x-ray in three weeks. 3. Steroid taper. 4. Monitor and control blood sugars. Dhruv Serrano MD [facility]/ELVIN /[id number]
[2020-04-02 12:39] VITALS: BP 142/88
== END 2020-04-02 11:32 | disposition home or self-care (01) | DRG 193 ==
LOC: ER 01:26 → ERHOLD 04:17 → MED/SURG 11:44 → OBSVTOIN 03-29 13:05
PROVIDERS: ADMIT Internal Medicine; ATTEND Internal Medicine
DX: J15.9 Unspecified bacterial pneumonia (principal); G92 Toxic encephalopathy; J44.1 Chronic obstructive pulmonary disease with (acute) exacerbation; I50.32 Chronic diastolic (congestive) heart failure; J84.9 Interstitial pulmonary disease, unspecified; I11.0 Hypertensive heart disease with heart failure; G47.30 Sleep apnea, unspecified; D64.9 Anemia, unspecified; E78.5 Hyperlipidemia, unspecified; F32.9 Major depressive disorder, single episode, unspecified; E11.65 Type 2 diabetes mellitus with hyperglycemia
CPT/HCPCS: 36415; 36600; 71045; 71046; 71250; 80053; 82550; 82553; 82805; 82948; 83036; 83880; 84439; 84443; 84484; 85025; 93005; 93306; 94640; 94660; 96372; 99284; G0378; J1815; J1817; J1956; J2920; J2930; J3475; U0002

== ENCOUNTER 2020-04-03 17:40 | Inpatient (IN) | payer OTHER ==
[~2020-04-03] VITALS: Ht 160 cm; Wt 108.9 kg
[~2020-04-03 17:40] MED LIST changes: +LEVAQUIN500 MG PO; +PREDNISONE10 MG PO
[2020-04-03 18:15] LABS: BASOPHILS % 0.2 % (0.0-1.0); EOSINOPHILS # (AUTO) 0.1 (0.0-0.4); EOSINOPHILS % 0.8 % (0.0-6.0); HEMATOCRIT 45.8 % (34.2-44.1); HEMOGLOBIN 13.1 g/dL (12.0-16.0); LYMPHOCYTES # (AUTO) 0.7 (1.0-3.2); MEAN CORPUSCULAR HEMOGLOBIN 24.4 pg (28-32); MEAN CORPUSCULAR HGB CONC 28.6 g/dL (31-35); MEAN CORPUSCULAR VOLUME 85.3 fL (81-99); MONOCYTES # (AUTO) 0.4 (0.2-0.8); MONOCYTES % 4.8 % (4.4-11.3); NEUTROPHILS # (AUTO) 7.7 (2.1-6.9); PLATELET COUNT 182 x10e3/uL (140-360); RED BLOOD COUNT 5.37 x10e6/uL (3.6-5.1); RED CELL DISTRIBUTION WIDTH 19.3 % (11.7-14.4)
[2020-04-03 18:31] LABS: ALANINE AMINOTRANSFERASE 31 IU/L (0-55); ALBUMIN/GLOBULIN RATIO 1.3 (0.8-2.0); ALKALINE PHOSPHATASE 113 IU/L (40-150); ANION GAP 19.3 mmol/L (8-16); BLOOD UREA NITROGEN 28 mg/dL (7-26); BUN/CREATININE RATIO 38 (6-25); CARBON DIOXIDE 30 mmol/L (22-29); CHLORIDE 97 mmol/L (98-107); CREATININE, SERUM 0.73 mg/dL (0.57-1.11); EST GLOMERULAR FILTRATION RATE > 60 ML/MIN (60-); POTASSIUM 4.3 mmol/L (3.5-5.1); SODIUM 142 mmol/L (136-145)
[2020-04-03 18:36] LABS: GLUCOSE 39 mg/dL (74-118)
[2020-04-03] MEDS ORDERED: DEXTROSE 50% SYRINGE 50 ML IV STA (18:40)
[2020-04-03] MEDS ORDERED: DEXTROSE 50% SYRINGE 50 ML IV ONE (18:45)
--- NOTE | 2020-04-03 19:29 | Emergency Department Note ---
History of Present Illnes History of Present Illness Chief Complaint: General Medicine Complaints History of Present Illness This is a 65 year old female Chief Complaint Comment Patient in from home via EMS after her significant other called due to the patient being hard to arouse. EMS reports that on scene the patient's blood sugar was 22. IV access obtained and about 100ml of D10 was given and raised her blood sugar to 95. Patient is able to respond to questions in triage but remains fatigued and sleepy. Patient also complains of a severe headache rated 9/10 but does not know when it started. Patient denies falling or hitting her head. Patient does report experiencing frequent headaches. Patient was recently admitted and discharged from this facility for pneumonia. 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 Mode: [facility] EMS Treatment TACK MAKER: IV, O2 Axle Inspector Required: No Onset (how long ago): day(s) (1) Location: Generalized Quality: Somnolent Radiation: Reports non-radiation Severity: moderate Onset quality: sudden Duration (how long): day(s) (1) Timing of current episode: unable to specify Progression: unchanged Chronicity: new Context: Reports recent illness; Denies recent surgery Relieving factors: none Exacerbating factors: none Associated symptoms: Reports denies other symptoms Treatments prior to arrival: none Past Medical/Family History Physician Review I have reviewed the patient's past medical and family history. Any updates have been documented here. Past Medical History Recent Fever: No Clinical Suspicion of Infectio: No New/Unexplained Change in Ment: Yes Past Medical History: Hypertension, Diabetes, COPD, CHF, Asthma, A-Fib, UTI's, Anemia, Anxiety, Depression, GERD, Hyperlipedemia, Chronic Back Pain Other Medical History: Home o2 at 4L, home cpap, neuropathy, restless leg, sleep apnea Past Surgical History: Appendectomy Other Surgery: Left foot Social History Smoking Cessation: Former smoker Counseling Performed: No Alcohol Use: Occasional Any Illegal Drug Use: No Physically hurt or threatened: No Other Last Tetanus: UNK Any Pre-Existing Lines (PICC,: No Review of Systems ROS Narrative Unable to obtain ROS: Unable to obtain due to, altered mental status Physical Exam Related Data Allergies: Coded Allergies: metronidazole (Verified Allergy, Intermediate, RASH,ITCHING, 03/02/20) Penicillins (Verified Allergy, Unknown, rash, 01/10/19) Triage Vital Signs Vital Signs Date Time Temp Pulse Resp B/P (MAP) Pulse Ox O2 Delivery O2 Flow Rate FiO2 04/03/20 17:48 97.1 61 18 166/76 100 Nasal Cannula Vital signs reviewed: Yes Physical Exam CONSTITUTIONAL Constitutional: Present well-developed, Present well-nourished HENT HENT: Present normocephalic, Present atraumatic, Present oropharynx clear/mo ist, Present nose normal HENT L/R: Present left ext ear normal, Present right ext ear normal EYES Eyes: Reports PERRL, Reports conjunctivae normal NECK Neck: Present ROM normal PULMONARY Pulmonary: Present effort normal, Present breath sounds normal CARDIOVASCULAR Cardiovascular: Present regular rhythm, Present heart sounds normal, Present capillary refill normal, Present normal rate GASTROINTESTINAL Abdominal: Present soft, Present nontender, Present bowel sounds normal GENITOURINARY Genitourinary: Present exam deferred SKIN Skin: Present warm, Present dry MUSCULOSKELETAL Musculoskeletal: Absent deformity, Absent tenderness, Absent swelling NEUROLOGICAL Neurological: Present other (Patient non responsive) PSYCHOLOGICAL Psychological: Present other (non responsive) Results Laboratory Result Diagram: 04/03/20 1806 04/03/20 1806 Laboratory Laboratory Tests Test 04/03/20 19:03 04/03/20 18:36 04/03/20 18:06 Bedside Glucose 151 mg/dL (70-120) 75 mg/dL (70-120) White Blood Count 9.01 x10e3/uL (4.8-10.8) Red Blood Count 5.37 x10e6/uL (3.6-5.1) Hemoglobin 13.1 g/dL (12.0-16.0) Hematocrit 45.8 % (34.2-44.1) Mean Corpuscular Volume 85.3 fL (81-99) Mean Corpuscular Hemoglobin 24.4 pg (28-32) Mean Corpuscular Hemoglobin Concent 28.6 g/dL (31-35) Red Cell Distribution Width 19.3 % (11.7-14.4) Platelet Count 182 x10e3/uL (140-360) Neutrophils (%) (Auto) 85.0 % (38.7-80.0) Lymphocytes (%) (Auto) 8.0 % (18.0-39.1) Monocytes (%) (Auto) 4.8 % (4.4-11.3) Eosinophils (%) (Auto) 0.8 % (0.0-6.0) Basophils (%) (Auto) 0.2 % (0.0-1.0) Neutrophils # (Auto) 7.7 (2.1-6.9) Lymphocytes # (Auto) 0.7 (1.0-3.2) Monocytes # (Auto) 0.4 (0.2-0.8) Eosinophils # (Auto) 0.1 (0.0-0.4) Basophils # (Auto) 0.0 (0.0-0.1) Absolute Immature Granulocyte (auto 0.11 x10e3/uL (0-0.1) Sodium Level 142 mmol/L (136-145) Potassium Level 4.3 mmol/L (3.5-5.1) Chloride Level 97 mmol/L (98-107) Carbon Dioxide Level 30 mmol/L (22-29) Anion Gap 19.3 mmol/L (8-16) Blood Urea Nitrogen 28 mg/dL (7-26) Creatinine 0.73 mg/dL (0.57-1.11) Estimat Glomerular Filtration Rate > 60 ML/MIN (60-) BUN/Creatinine Ratio 38 (6-25) Glucose Level 39 mg/dL (74-118) Calcium Level 9.0 mg/dL (8.4-10.2) Total Bilirubin 0.4 mg/dL (0.2-1.2) Aspartate Amino Transf (AST/SGOT) 22 IU/L (5-34) Alanine Aminotransferase (ALT/SGPT) 31 IU/L (0-55) Alkaline Phosphatase 113 IU/L (40-150) Troponin I 0.026 ng/mL (0-0.300) Total Protein 7.0 g/dL (6.5-8.1) Albumin 4.0 g/dL (3.5-5.0) Globulin 3.0 g/dL (2.3-3.5) Albumin/Globulin Ratio 1.3 (0.8-2.0) Lab results reviewed: Yes Imaging Imaging results reviewed: Yes Diagnostics Tests Diagnostic test(s) reviewed: Yes Assessment & Plan Medical Decision Making MDM 65-year-old female presents for hypoglycemia and altered mental status. Blood sugar initially was 22 and she was given D10 which improved her blood sugar, it then dropped again and was given D50. She is on long-acting oral hypoglycemics and will require admission for her persistent hypoglycemia and altered mental status. Workup is otherwise unremarkable and appears patient . Patient was discussed with Dr. Cassidy who has agreed to admit for hypoglycemia. Reassessment Reassessment time: 19:28 Reassessment Somnolent Assessment & Plan Final Impression: (1) Hypoglycemia Depart Disposition: ADMITTED Last Vital Signs Date Time Temp Pulse Resp B/P (MAP) Pulse Ox O2 Delivery O2 Flow Rate FiO2 04/03/20 18:41 62 17 178/89 97 04/03/20 17:48 97.1 Nasal Cannula Home Meds Reported Medications Prednisone (PREDNISONE) 10 Mg Tab, MG PO DAILY for 4 Days, #30 TAB 04/02/20 Levofloxacin (LEVAQUIN) 500 Mg Tablet, MG PO DAILY, #7 TAB 04/02/20 Tramadol HCl (Tramadol HCl) 100 Mg Tablet, 50 MG PO Q12H PRN for Mild Pain (1-3) or Fever>100.8 03/05/20 Ondansetron Hcl (ZOFRAN) 8 Mg Tablet, 4 MG PO Q12H PRN for NAUSEA 03/05/20 Ciprofloxacin Hcl (CIPRO) 500 Mg Tablet, 500 MG PO Q12H, #30 TAB 03/05/20 Insulin Lispro (HUMALOG) 100 Unit/1 Ml Insuln.pen, 30 UNITS SQ TIDWM 01/21/19 Insulin Glargine (LANTUS 3ML PEN) 100 Units/1 Ml Inj, 60 UNITS SQ HS 01/21/19 Glimepiride (GLIMEPIRIDE) 2 Mg Tablet, 2 MG PO DAILY 01/16/19 Losartan Potassium (LOSARTAN POTASSIUM) 50 Mg Tablet, 50 MG PO DAILY 01/16/19 Potassium Chloride (POTASSIUM CHLORIDE) 10 Meq Tablet.er, 10 MEQ PO DAILY 01/16/19 Spironolactone (SPIRONOLACTONE) 25 Mg Tablet, 25 MG PO DAILY, TAB 06/27/18 Sertraline Hcl (SERTRALINE HCL) 100 Mg Tablet, 100 MG PO DAILY, TAB 06/27/18 Ropinirole Hcl (ROPINIROLE HCL) 1 Mg Tablet, 2 MG PO QID, #30 TAB 12/24/17 Simvastatin (SIMVASTATIN) 40 Mg Tablet, 40 MG PO 2100, #30 TAB 09/28/17 Gabapentin (GABAPENTIN) 300 Mg Capsule, 300 MG PO Q6H, #120 CAP 09/28/17 Furosemide (FUROSEMIDE) 40 Mg Tablet, 40 MG PO BID, #60 TAB 09/28/17 Metoprolol Tartrate (METOPROLOL TARTRATE) 50 Mg Tablet, 50 MG PO BID, TAB 09/28/17 Omeprazole (OMEPRAZOLE) 40 Mg Capsule.dr, 40 MG PO DAILY 09/28/17 Aspirin (ASPIR 81) 81 Mg Tablet.dr, 81 MG PO DAILY 09/28/17 Medications in the ED Dextrose 50 ml STK-MED ONCE IV ; Start 04/03/20 at 18:45; Stop 04/03/20 at 18:38; Status DC Dextrose 50 ml NOW STAT IV Last administered on 04/03/20at 18:42; Admin Dose 50 ML; Start 04/03/20 at 18:40; Stop 04/03/20 at 18:47; Status DC KELLY NAVA MD Apr 03, 2020 19:29
--- NOTE | 2020-04-03 19:40 | Diagnostic Imaging Report ---
EXAMINATION: Head CT without contrast. HISTORY:Altered mental status. COMPARISON:CT brain from 07/11/2018. TECHNIQUE: Multidetector axial images were obtained from the foramen magnum to the vertex without contrast. The images were reconstructed using brain and bone algorithms. Thin section brain images were reformatted into coronal and sagittal planes. Dose modulation, iterative reconstruction, and/or weight based adjustment of the mA/kV was utilized to reduce the radiation dose to as low as reasonably achievable. Intravenous contrast: None IMAGE QUALITY: Acceptable. FINDINGS: Skull/scalp: No lytic or blastic. lesions. No surgical changes. Parenchyma: Nonspecific few, scattered supratentorial white matter hypodensity are likely related to small vessel ischemic changes. No acute hemorrhage, mass or acute major vascular territorial infarct. Arteries: No density suggestive of thrombosis. Dural sinuses: No abnormal density suggestive of thrombosis. Ventricles: No hydrocephalus or displacement. Extra-axial spaces: No abnormal density. Brain volume: Normal for age. Craniocervical junction: No mass, Chiari malformation, or basilar invagination. Sella: No mass. Paranasal/mastoid sinuses: Imaged portions unremarkable. IMPRESSION: No acute intracranial abnormality. Signed by: Dr. Dory Villasenor M.D. on 04/03/2020 7:36 PM
--- OUTSIDE RECORDS SUMMARY | 2020-04-03 19:52 | XMS REPORT | Continuity of Care Document ---
Author Author [facility] t Organization [facility] Address [address] [place] [address] Phone Unavailable Care Team Providers Care Lab Nurse Name Role Phone LUCILLE OLIVO MD PCP Aura Salgado Attphys Unavailable LUCILLE OLIVO Attphys Unavailable Treasure AJNE Attphys Unavailable RAFAELA MCADAMS Attphys Unavailable Elyse TOLBERT Attphys Unavailable EUNICE, S ELIESER Attphys Unavailable NE T ROBERT Attphys Unavailable SONAM, BENJAMIN Attphys Unavailable RETA, P JEFFREY Attphys Unavailable Astrid BADILLO Attphys Unavailable LUCILLE OLIVO Admphys Unavailable Waldo JUAN Admphys Unavailable SONAM, BENJAMIN Admphys Unavailable PATEL ORTIZ Admphys Unavailable Payers Payer Name Policy Type Policy Number Effective Date Expiration Date Mary wen [employer] [id number] 2013 00:00:[address] [facility] [employer] [id number] 2013 00:00:[address] [facility] Problems Condition Name Condition Details Condition Category Status Onset Date Resolution Date Last Treatment Date Treating Clinician Comments Source Uncontrolled type 2 diabetes mellitus Diabetes type 2, uncontrol led Problem Active [facility] Hyperglycemia Hyperglycemia Problem Active [facility] Pneumonia Pneumonia Problem Active [facility] Syncope Syncope Problem Active [facility] Chronic kidney disease CKD (chronic kidney disease) Problem Active [facility] Pre-syncope Syncope, near Problem Active [facility] Poorly controlled diabetes mellitus Poorly controlled diabetes m ellitus Problem Active [facility] Bradycardia with 41-50 beats per minute Bradycardia with 41- 50 beats per minute Problem Active [facility] Congestive heart failure CHF (congestive heart failure) Problem Active [facility] Chronic obstructive pulmonary disease COPD (chronic ob structive pulmonary disease) Problem Active [facility] Volume depletion Volume depletion Problem Active [facility] Allergies, Adverse Reactions, Alerts Allergy Name Allergy Type Status Severity Reaction(s) Onset Date Inacti ve Date Treating Clinician Comments Source Penicillins DA Active SV 2020-01-06 00:00:00 [facility] Penicillins DA Active SV 2019-12-12 00:00:00 [facility] Penicillins DA Active SV 2019-12-03 00:00:00 [facility] Penicillins DA Active SV 2019-11-20 00:00:00 [facility] Penicillins DA Active SV 2019-08-20 00:00:00 [facility] Penicillins DA Active SV 2019-08-06 00:00:00 [facility] Penicillins DA Active SV 2019-05-31 00:00:00 [facility] Penicillins DA Active SV 2019-05-17 00:00:00 [facility] Penicillin Allergy to Substance Active rash 2019-01-10 00:00:[address] [facility] Penicillins DA Active SV 2017-11-15 00:00:00 [facility] Medications Ordered Medication Name Filled Medication Name Start Date Stop Da te Current Medication? Ordering Clinician Indication Dosage Frequency Signature (SIG) Comments Components Source Bacitracin/Polymyxin B Sulfate (Bacitrac in-Polymyxin Ointment) 28.35 Gm Oint...g. Bacitracin/Polymyxin B Sulfate (Bacitrac in-Polymyxin Ointment) 28.35 Gm Oint...g. 2019-04-23 00:00:00 Yes Elieser Dawson Md [address] Day [facility] Betamethasone/Clotrimazole (Clotrimazole-Betamethasone Crm) 15 Gm Cr Betamethasone/Clotrimazole (Clotrimazole-Betamethasone Crm) 15 Gm Cr 2019-04-23 00:00:00 Yes Elieser Dawson Md 2 Three Times A Day [facility] Chlorhexidine Gluconate (Hibiclens) 120 Ml Liqd Chlorh exidine Gluconate (Hibiclens) 120 Ml Liqd 2019-04-23 00:00:00 Yes Elieser Dawson Md 5 [address] Times A Day [facility] Aspirin (Aspir 81) 81 Mg Tablet. Aspirin (Aspir 81) 81 Mg Tablet. Yes [address] [facility] Furosemide 40 Mg Tablet Furosemide 40 Mg Tablet Yes 40 Twice A Day [facility] Gabapentin 300 Mg Capsule Gabapentin 300 Mg Capsule Yes [address] [facility] Glimepiride 2 Mg Tablet Glimepiride 2 Mg Tablet Yes [address] [facility] Insulin Glargine (Lantus 3ML Pen) 100 Units/1 Ml Inj I nsulin Glargine (Lantus 3ML Pen) 100 Units/1 Ml Inj Yes [address] [facility] Insulin Lispro (Humalog) 100 Unit/1 Ml Insuln.pen Insu mateus Lispro (Humalog) 100 Unit/1 Ml Insuln.pen Yes 30 Three Times Daily With Meals [facility] Losartan Potassium 50 Mg Tablet Losartan Potassium 50 Mg Tablet Yes [address] [facility] Metoprolol Tartrate 50 Mg Tablet Metoprolol Tartrate 50 Mg Tablet Yes 50 Twice A Day [facility] Omeprazole 40 Mg Capsule. Omeprazole 40 Mg Capsule.dr Yes 40 Daily [facility] Potassium Chloride 10 Meq Tablet.er Potassium Chloride 10 Meq Tablet. er Yes 10 Daily [facility] Ropinirole Hcl 1 Mg Tablet Ropinirole Hcl 1 Mg Tablet Yes [address] [facility] Sertraline Hcl 100 Mg Tablet Sertraline Hcl 100 Mg Tablet Y es [address] [facility] Simvastatin 40 Mg Tablet Simvastatin 40 Mg Tablet Yes 40 Today At 9:00PM [facility] Spironolactone 25 Mg Tablet Spironolactone 25 Mg Tablet Yes 25 Daily [facility] Insulin Human Regular (Humulin R U-500*) 500 Unit/1 Ml Inj, 50 Subcutaneously Insulin Human Regular (Humulin R U-500*) 500 Unit/1 Ml Inj, 50 Subcutaneously 2019-01-21 00:00:00 No 50 Three Times A Day [facility] Albuterol Sulfate (Proair Hfa Inhaler*) 8.5 Gm Inh, 2 Inh Albuterol Sulfate (Proair Hfa Inhaler*) 8.5 Gm Inh, 2 Inh 2019-01-16 00:00:00 No 2 Four Times Daily as needed for Shortness Of Breath [facility] Fenofibrate Nanocrystallized (Fenofibrate) 145 Mg Tabl et, 145 Mg Oral Fenofibrate Nanocrystallized (Fenofibrate) 145 Mg Tablet, 145 Mg Oral 2019-01-16 00:00:00 No [address] [facility] Sildenafil Citrate (Revatio) 20 Mg Tab, 20 Mg Oral Calista denafil Citrate (Revatio) 20 Mg Tab, 20 Mg Oral 2019-01-16 00:00:00 No 20 Th ree Times A Day [facility] Solifenacin Succinate (Vesicare) 5 Mg Tablet, 10 Mg Or al Solifenacin Succinate (Vesicare) 5 Mg Tablet, 10 Mg Oral 2019-01-16 00:00:00 No [address] [facility] Benzonatate (Tessalon Perle) 100 Mg Capsule, 100 Mg Or al Benzonatate (Tessalon Perle) 100 Mg Capsule, 100 Mg Oral 2019-01-13 00:00:00 No [address] [facility] Glimepiride 2 Mg Tablet, 4 Mg Oral Glimepiride 2 Mg Tablet, 4 Mg Oral 2019-01-13 00:00:00 No 4 Twice A Day [facility] Furosemide (Lasix) 40 Mg Tablet, 40 Mg Oral Furosemide (Lasix) 40 Mg Tablet, 40 Mg Oral 2018-07-03 00:00:00 No 40 Twice A Day [facility] Paroxetine Hcl 20 Mg Tablet, 40 Mg Oral Paroxetine Hcl 20 Mg Tablet, 40 Mg Oral 2018-06-27 00:00:00 No [address] [facility] Tramadol Hcl (Ultram 50MG*) 50 Mg Tab, 50 Mg Oral Tram adol Hcl (Ultram 50MG*) 50 Mg Tab, 50 Mg Oral 2018-06-27 00:00:00 No 50 Every [address] [facility] Insulin Regular, Human (Humulin R) 100 Unit/1 Ml Vial, 20 Units Subcutaneously Insulin Regular, Human (Humulin R) 100 Unit/1 Ml Vial, 20 Units Subcutaneously 2017-12-28 00:00:00 No 20 Twice A Day [facility] Insulin Detemir (Levemir) 100 Unit/1 Ml Vial, Insulin Detemir (Levemir) 100 Unit/1 Ml Vial, 2017-10-31 00:00:00 [facility] Insulin Aspart (Novolog Mix 70-30 Vial) 100 Units/Ml M l, Insulin Aspart (Novolog Mix 70-30 Vial) 100 Units/Ml Ml, 2017-10-11 00:00:00 [facility] Metformin Hcl (Glucophage) 500 Mg Tablet, Metformin Hc l (Glucophage) 500 Mg Tablet, 2017-09-28 00:00:00 [facility] Metoprolol Succinate (Toprol Xl) 50 Mg Tab.er.24h, 50 Oral Metoprolol Succinate (Toprol Xl) 50 Mg Tab.er.24h, 50 Oral 2017-09-28 00:00:00 No 50 Twice A Day for Elevated Blood Pressure [facility] Procedures Procedure Date / Time Performed Performing Clinician [facility] e X-ray of chest, two views 2019-01-10 00:00:[address] [facility] Computed tomography of brain without radiopaque contrast 201 03-04-19 00:00:00 EUNICE ELIESER Hernandez [facility] Computed tomography of cervical spine without contrast 07-11 00:00:[address] E[address] S [facility] CT maxillofacial area wo contrast 2018-07-11 00:00:[address] [facility] X-ray of chest, single view 2018-07-01 00:00:[address] [facility] X-ray of chest, two views 2018-06-27 00:00:[address] [facility] Encounters Start Date/Time End Date/Time En[facility] ID Source 2019-04-27 02:46:00 2019-04-27 04:46:00 Departed Emergency Room 1 [place] [facility] [id number] [facility] 2019-04-23 20:19:00 2019-04-23 20:58:00 Departed Emergency Room [facility] [id number] [facility] 2019-04-17 20:48:00 2019-04-17 21:35:00 Departed Emergency Room [facility] [id number] [facility] 2019-03-15 01:19:00 2019-03-15 03:30:00 Departed Emergency Room 1 JANEJACQUES BURLESON [facility] [id number] [facility] 2019-02-23 23:49:00 2019-02-24 05:38:00 Departed Emergency Room 1 JANEJACQUES [facility] [id number] [facility] 2019-01-18 14:54:00 2019-01-21 16:15:00 Discharged Inpatient 1 JACQUES JANE [facility] [id number] [facility] 2019-01-11 19:31:00 2019-01-13 15:36:00 Discharged Inpatient (obs) 1 TOMASZ [facility] [id number] [facility] 2019-01-10 15:21:00 2019-01-10 19:19:00 Departed Emergency Room 1 [place] [facility] [id number] [facility] 2018-07-30 16:40:00 2018-07-31 01:45:00 Departed Emergency Room 1 [place] [facility] [id number] [facility] 2018-07-11 10:03:00 2018-07-11 14:40:00 Departed Emergency Room 1 ELIESER DAWSON [facility] [id number] [facility] 2018-07-01 09:28:00 2018-07-03 14:06:00 Discharged Inpatient 1 LUCILLE OLIVO [facility] [id number] [facility] 2018-05-30 19:52:00 2018-05-30 20:30:00 Departed Emergency Room [facility] [id number] [facility] 2018-04-03 01:16:00 2018-04-03 04:19:00 Departed Emergency Room 1 ROBERT OLIVIA [facility] [id number] [facility] 2018-02-04 11:46:00 2018-02-07 13:55:00 Discharged Inpatient (obs) 1 ROBERT OLIVIA [facility] [id number] [facility] 2018-01-31 22:01:00 2018-02-01 02:14:00 Departed Emergency Room 1 [place] [facility] [id number] [facility] 2017-12-24 00:08:00 2017-12-28 16:18:00 Discharged Inpatient (obs) 1 BENJAMIN MASTERS [facility] [id number] [facility] 2017-10-31 01:50:00 2017-10-31 03:18:00 Departed Emergency Room ER JACQUES JANE [facility] [id number] [facility] 2017-10-25 22:28:00 2017-10-26 00:09:00 Departed Emergency Room [facility] [id number] [facility] 2017-10-11 23:19:00 2017-10-12 04:45:00 Departed Emergency Room ER FLO TOLBERT [facility] [id number] [facility] 2017-10-11 07:38:00 2017-10-11 10:17:00 Departed Emergency Room ER JEFFREY MCDUFFIE [facility] [id number] [facility] 2017-09-25 14:18:00 2017-09-29 13:30:00 Discharged Inpatient ER JAYASHREE BADILLO [facility] [id number] [facility] 2017-08-24 13:00:00 2017-08-26 16:20:00 Discharged Inpatient (obs) ER FLO TOLBERT [facility] [id number] [facility] 2017-04-17 23:09:00 2017-04-18 03:16:00 Departed Emergency Room [facility] [id number] [facility] 2017-02-09 21:43:00 2017-02-10 02:38:00 Departed Emergency Room [facility] [id number] [facility] 2016-12-29 19:19:00 2016-12-30 01:00:00 Departed Emergency Room [facility] [id number] [facility] Results Test Description Test Time Test Comments Results Result Comments Source CT BRAIN WO 2020-04-03 19:32:00 [facility] [address] [address] Patient Name: KALYANI TALAVERA MR #: [id number] : 1955 Age/Sex: 65/F Req #: [id number] Adm Physician: Ordered by: Kelly Salgado MD Report #: [id number] Location: ER Room/Bed: Procedure: [id number] CT/CT BRAIN WO Exam Date: Exam Time: REPORT STATUS: Signed EXAMINATION: Head CT without contrast. HISTORY:Altered mental status. COMPARISON:CT brain from 07/11/2018. TECHNIQUE: Multidetector axial images were obtained from the foramen magnum to the vertex without contrast. The images were reconstructed using brain and bone algorithms. Thin section brain images were reformatted into coronal and sagittal planes. Dose modulation, iterative reconstruction, and/or weight based adjustment of the mA/kV was utilized to reduce the radiation dose to as low as reasonably achievable. Intravenous contrast: None IMAGE QUALITY: Acceptable. FINDINGS: Skull/scalp: No lytic or blastic. lesions. No surgical changes. Parenchyma: Nonspecific few, scattered supratentorial white matter hypodensity are likely related to small vessel ischemic changes. No acute hemorrhage, mass or acute major vascular territorial infarct. Arteries: No density suggestive of thrombosis. Dural sinuses: No abnormal density suggestive of thrombosis. Ventricles: No hydrocephalus or displacement. Extra-axial spaces: No abnormal density. Brain volume: Normal for age. Craniocervical junction: No mass, Chiari malformation, or basilar invagination. Sella: No mass. Paranasal/mastoid sinuses: Imaged portions unremarkable. IMPRESSION: No acute intracranial abnormality. Signed by: Dr. Thompson Villasenor M.D. on 04/03/2020 7:36 PM Dictated By: THOMPSON VILLASENOR MD 35 Transcribed By: JIM on 04/03/201935 COPY TO: KELLY SALGADO MD CHEST SINGLE (PORTABLE) 2020-03-31 08:48:[address] [address] Patient Name: KALYANI TALAVERA MR #: [id number] : 1955 Age/Sex: 65/F Req #: [id number] Adm Physician: LUCILLE OLIVO MD Ordered by: TAZ BRAVO MD Report #: [id number] Location: MED/SURG Room/Bed: [facility] Procedure: [id number] DX/CHEST SINGLE (PORTABLE) Exam Date: 03/31/20 Exam Time: 0530 REPORT STATUS: Signed EXAMINATION: CHEST SINGLE (PORTABLE) INDICATION: CHF COMPARISON: Chest radiograph 03/30/2020, chest CT 03/27/2020 FINDINGS: LINES/TUBES:EKG leads overlie the chest. LUNGS:The lung volumes are low. Slight interval decrease in bilatera l multifocal airspace and interstitial opacities. PLEURA:No pleural effusion or pneumothorax. MEDIASTINUM:The cardiomediastinal silhouette appears unchanged in size and shape. BONES/SOFT TISSUES:No acute osseous injury. ABDOMEN:No free air under the diaphragm. IMPRESSION: Slight interval decrease in bilateral multifocal airspace and interstitial opacities, which remains concerning for multifocal infection. Signed by: Cedric Wynne MD on 03/31/2020 8:52 AM Dictated By: CEDRIC WYNNE MD 1 Transcribed By: JIM on 03/31/20851 COPY TO: TAZ BRAVO MD, ABI CHEST 2 VIEWS 2020-03-30 06:46:00 [address] [address] Patient Name: KALYANI TALAVERA MR #: [id number] : 1955 Age/Sex: 65/F Req #: [id number] Adm Physician: LUCILLE OLIVO MD Ordered by: PARIS JUAN MD Report #: [id number] Location: MED/SURG Room/Bed: [facility] Procedure: [id number] DX/CHEST 2 VIEWS Exam Date: Exam Time: REPORT STATUS: Signed EXAMINATION: CHEST 2 VIEWS INDICATION: resp failure COMPARISON: 03/27/2020 FINDINGS: PA and lateral views TUBES and LINES: None. LUNGS: Lungs are well inflated. Persistent bilateral airspace opacities. PLEURA: No pleural effusion or pn eumothorax. HEART AND MEDIASTINUM: The cardiomediastinal silhouette is unremarkable. BONES AND SOFT TISSUES: No acute osseous lesion. Soft tissues are unremarkable. UPPER ABDOMEN: No free air under the diaphragm. IMPRESSION: Not significantly changed bilateral airspace opacities, concerning for multifocal pneumonia. Signed by: Dr. Shirley Brandon MD on 03/30/2020 6:47 AM Dictated By: SHIRLEY BRANDON MD 6 Transcribed By: JIM on 03/30/20646 COPY TO: PARIS JUAN MD CT CHEST WO 2020-03-27 16:18:00 [address] [address] Patient Name: KALYANI TALAVERA MR #: [id number] : 1955 Age/Sex: 65/F [facility]ort #: [id number] Req #: [id number] Adm Physician: LUCILLE OLIVO MD Ordered by: PARIS JUAN MD Report #: [id number] Location: MED/SURG Room/Bed: [facility] Procedure: [id number] CT/CT CHEST WO Exam Date: Exam Time: REPORT STATUS: Signed EXAM: CT Chest WITHOUT intravenous contrast 03/27/2020 4:01 PM INDICATION: dyspnea COMPARISON: Chest x-ray dated the same day. CT chest dated 02/05/2020 TECHNIQUE: Chest was scanned utilizing a multidetector helical scanner from the lung apex through the level of the adrenal glands without administration of IV contrast. Coronal and sagittal reformations were obtained. Routine protocol was performed. IV CONTRAST: None RADIATION DOSE: Total DLP: 488 mGy*cm. Dose modulation, iterative reconstruction, and/or weight based adjustment of the mA/kV was utilized to reduce the radiation dose to as low as reasonably achievable. COMPLICATIONS: None FINDINGS: LINES/ TUBES: None. LUNGS AND AIRWAYS: There are diffuse groundglass and patchy airspace opacities throughout the lungs. Negative for effusion or pneumothorax. HEART AND MEDIASTINUM: Thyroid gland is heterogeneous and mildly enlarged. Calcification is noted within the right thyroid lobe. No discrete nodule is identified. Enlarged mediastinal lymph nodes are similar to prior exam including in the pretracheal region and AP window. Heart is mildly enlarged. Coronary artery and aortic valve calcifications are noted. There is no pericardial effusion. Thoracic aorta demonstrates mild atherosclerotic changes of the arch. Thoracic aorta is of normal caliber UPPER ABDOMEN: Elevated right hemidiaphragm is noted. BONES: Negative for acute osseous abnormality. Mild to moderate multilevel degenerative changes of the spine are noted. No suspicious lytic or blastic lesion. SOFT TISSUES: Unremarkable. IMPRESSION: Compared to CT dated 02/05/2020 there is interval progression with similar appearance diffuse groundglass opacities and diffuse new patchy airspace opacities. Findings are concerning for multifocal infection, possibly atypical in nature given the combination of groundglass and patchy airspace opacities. Fungal pneumonia is a consideration along with atypical viral pneumonia. Stable reactive mediastinal adenopathy. Signed by: Juan José Bradley MD on 03/27/2020 4:28 PM Dictated By: JUAN JOSÉ BRADLEY MD 27 Transcribed By: JIM on 03/27/201627 COPY TO: PARIS JUAN MD CHEST SINGLE (PORTABLE) 2020-03-27 03:41:00 [address] [place] [address] Patient Name: KALYANI TALAVERA MR #: [id number] : 1955 Age/Sex: 65/F Req #: [id number] Adm Physician: Ordered by: RAFAELA MCADAMS DO Report #: [id number] Location: ER Room/Bed: Procedure: [id number] DX/CHEST SINGLE (PORTABLE) Exam Date: 03/27/20 Exam Time: 214 REPORT STATUS: Signed EXAMINATION: CHEST SINGLE (PORTABLE) INDICATION: sob [id number] COMPARISON: 02/23/2020 FINDINGS: AP view TUBES [...] edema and/or pneumonia. Signed by: Dr. Shirley Brandon MD on 03/27/2020 3:43 AM Dictated By: SHIRLEY BRANDON MD 2 Transcribed By: JIM on 03/27/20342 COPY TO: RAFAELA MCADAMS DO CHEST SINGLE (PORTABLE) 2020-03-12 03:34:00 [address] [place] [address] Patient Name: KALYANI TALAVERA MR #: [id number] : 1955 Age/Sex: 65/F Req #: [id number] Adm Physician: Ordered by: JACQUES JANE MD Report #: [id number] Location: ER Room/Bed: Procedure: [id number] DX/CHEST SINGLE (PORTABLE) Exam Date: 03/12/20 Exam Time: 0310 REPORT STATUS: Signed EXAMINATION: CHEST SINGLE (PORTABLE) [...] MD CHEST XRAY LINE PLACEMENT 2020-02-26 21:45:00 [facility] [address] [address] Patient Name: KALYANI TALAVERA MR #: [id number] : 1955 Age/Sex: 64/F Req #: [id number] Adm Physician: LUCILLE OLIVO MD Ordered by: FLO TOLBERT MD Report #: [id number] Location: MED/SURG Room/Bed: [facility] Procedure: [id number] DX/CHEST XRAY LINE PLACEMENT Exam Date: 02/26/20 [...] TOLBERT MD CT ABDOMEN/PELVIS WO 2020-02-26 16:53:00 [facility] [address] [id number] Patient Name: KALYANI TALAVERA MR #: [id number] : 1955 Age/Sex: 64/F Req #: [id number] Adm Physician: Ordered by: FLO TOLBERT MD Report #: [id number] Location: ER Room/Bed: Procedure: CT/CT ABDOMEN/PELVIS WO Exam Date: 02/26/20 Exam [...] TOLBERT MD CHEST SINGLE (PORTABLE) 2020-02-26 14:35:00 [address] [address] Patient Name: KALYANI TALAVERA MR #: [id number] : 1955 Age/Sex: 64/F Req #: [id number] Adm Physician: Ordered by: FLO TOLBERT MD Report #: [id number] Location: ER Room/Bed: Procedure: [id number] DX/CHEST SINGLE (PORTABLE) Exam Date: 02/26/20 Exam [...] TOLBERT MD CHEST SINGLE (PORTABLE) 2020-02-08 06:52:00 [address] [address] Patient Name: KALYANI TALAVERA MR #: [id number] : 1955 Age/Sex: 64/F Req #: [id number] Adm Physician: Ordered by: JACQUES JANE MD Report #: [id number] Location: ER Room/Bed: Procedure: [id number] DX/CHEST SINGLE (PORTABLE) Exam Date: 02/08/20 Exam [...] JANE MD CT CHEST W 2020-02-05 06:23:00 [address] [address] Patient Name: KALYANI TALAVERA MR #: [id number] : 1955 Age/Sex: 64/F Req #: [id number] Adm Physician: Ordered by: RAFAELA MCADAMS DO Report #: [id number] Location: ER Room/Bed: Procedure: [id number] CT/CT CHEST W Exam Date: 02/05/20 Exam [...] MCADAMS DO CT ABDOMEN/PELVIS W 2020-02-05 06:23:00 [address] [address] Patient Name: KALYANI TALAVERA MR #: [id number] : 1955 Age/Sex: 64/F Req #: [id number] Adm Physician: Ordered by: RAFAELA MCADAMS DO Report #: [id number] Location: ER Room/Bed: Procedure: [id number] CT/CT ABDOMEN/PELVIS W Exam Date: 02/05/20 Exam [...] 386 mg/dL 74-106 H Performed by certified first coat operator at [facility] [id number] 11:50:00* Test Item Value Reference Range Interpretation Comments GLUBED (test code = GLUBED) 247 mg/dL 74-106 H Performed by certified first coat operator at [facility] [id number] 08:17:00* Test Item Value Reference Range Interpretation Comments GLUBED (test code = GLUBED) 226 mg/dL 74-106 H Performed by certified first coat operator at [facility] BASIC METABOLIC [id number] 06:17:00* Test Item Value Reference Range Interpretation [...] CA) 8.8 mg/dL 8.5-10.1 N BASIC METABOLIC [id number] 05:54:00* Test Item Value Reference Range Interpretation [...] CALCIUM (test code = CA) mg/dL 8.5-10.1 [id number] 20:08:00* Test Item Value Reference Range Interpretation Comments GLUBED (test code = GLUBED) 161 mg/dL 74-106 H Performed by certified first coat operator at [facility] [id number] 16:30:00* Test Item Value Reference Range Interpretation Comments GLUBED (test code = GLUBED) 120 mg/dL 74-106 H Performed by certified first coat operator at [facility] [id number] 11:27:00* Test Item Value Reference Range Interpretation Comments GLUBED (test code = GLUBED) 164 mg/dL 74-106 H Performed by certified first coat operator at [facility] - XR CHEST 1 [id number] 09:27:00 FAX: Jasen Frias MD [phone] [place]: St: [facility] FAX: Taz Mccormick MD [phone] FAX: Benjamin Francis MD [phone] Name: KALYANI TALAVERA [facility] : 1955 Age/S: 64/F [address] [facility] Unit #: [id number] Loc: V.4040 [place] [address] Phys: Taz Bravo MD Acct: [id number] Dis Date: Status: ADM IN [facility] #: [phone] Exam Date: 01/27/2020 1040 FAX #: [phone] Reason: chf EXAMS: CPT CODE: [id number] XR CHEST 1 V 04759 HISTORY: CHF. COMPARISON: January 24, 2020. Location: [facility]. Suboptimal inspiration. Crowding of bronchovascular markings. Dependent changes. Vague groundglass opacities is nonspecific finding. Cardiomegaly. IMPRESSION: No infiltrates or congestion. Va raquel groundglass opacities. These are unchanged. Electronical ly Signed by Gregory Chowdhury on 01/27/2020 at 0943 Rep orted and signed by: Solomon Chowdhury M.D. CC: Shane Coronado MD; Taz Bravo MD; Benjamin Masters Technologist: Ana Christianson RT(R); Donna Childers RT(R) Trnscrd Date/Time/By: 01/27/2020 (0927) : By: aniyah [email or web address] Orig Print D/T: S: 01/27/2020 (1041) P AGE 2 Signed Report GLUBED 2020-01-27 07:58:00* Test Item Value Reference Range Interpretation Comments GLUBED (test code = GLUBED) 127 mg/dL 74-106 H Performed by certified first coat operator at [facility] [id number] 07:40:00* Test Item Value Reference Range Interpretation Comments GLUBED (test code = GLUBED) 116 mg/dL 74-106 H Performed by certified first coat operator at [facility] [id number] 22:23:00* Test Item Value Reference Range Interpretation Comments GLUBED (test code = GLUBED) 259 mg/dL 74-106 H Performed by certified first coat operator at [facility] [id number] 17:10:00* Test Item Value Reference Range Interpretation Comments GLUBED (test code = GLUBED) 219 mg/dL 74-106 H Performed by certified first coat operator at [facility] [id number] 11:45:00* Test Item Value Reference Range Interpretation Comments GLUBED (test code = GLUBED) 265 mg/dL 74-106 H Performed by certified first coat operator at [facility] [id number] 08:52:00* Test Item Value Reference Range Interpretation Comments GLUBED (test code = GLUBED) 317 mg/dL 74-106 H Performed by certified first coat operator at [facility] [id number] 23:49:00* Test Item Value Reference Range Interpretation Comments GLUBED (test code = GLUBED) 327 mg/dL 74-106 H Performed by certified first coat operator at [facility] [id number] 22:15:00* Test Item Value Reference Range Interpretation Comments GLUBED (test code = GLUBED) 339 mg/dL 74-106 H Performed by certified first coat operator at [facility] [id number] 19:59:00* Test Item Value Reference Range Interpretation Comments GLUBED (test code = GLUBED) 497 mg/dL 74-106 H Performed by certified first coat operator at [facility] [id number] 18:29:00* Test Item Value Reference Range Interpretation Comments GLUBED (test code = GLUBED) > 500 mg/dL 74-106 HH [facility] [id number] 16:00:00* Test Item Value Reference Range Interpretation Comments GLUBED (test code = GLUBED) 377 mg/dL 74-106 H Performed by certified first coat operator at [facility] [id number] 12:09:00* Test Item Value Reference Range Interpretation Comments GLUBED (test code = GLUBED) 441 mg/dL 74-106 H [facility] certified [facility] BASIC METABOLIC [id number] 08:19:00* Test Item Value Reference Range Interpretation [...] CA) 8.7 mg/dL 8.5-10.1 N BASIC METABOLIC [id number] 08:11:00* Test Item Value Reference Range Interpretation [...] CALCIUM (test code = CA) mg/dL 8.5-10.1 [id number] 08:00:00* Test Item Value Reference Range Interpretation Comments GLUBED (test code = GLUBED) 493 mg/dL 74-106 H [facility] certified [facility] [id number] 02:13:00* Test Item Value Reference Range Interpretation Comments GLUBED (test code = GLUBED) > 500 mg/dL 74-106 HH [facility] certified first coat [facility] [id number] 02:13:00* Test Item Value Reference Range Interpretation Comments GLUBED (test code = GLUBED) > 500 mg/dL 74-106 HH Performed by certified first coat operator [facility] [id number] 21:24:00* Test Item Value Reference Range Interpretation Comments GLUBED (test code = GLUBED) 497 mg/dL 74-106 H Performed by certified first coat operator at [facility] [id number] 21:24:00* Test Item Value Reference Range Interpretation Comments GLUBED (test code = GLUBED) > 500 mg/dL 74-106 HH Performed by certified first coat operator [facility] BASIC METABOLIC [id number] 17:04:00* Test Item Value Reference Range Interpretation [...] CA) 8.6 mg/dL 8.5-10.1 N BASIC METABOLIC [id number] 16:49:00* Test Item Value Reference Range Interpretation [...] CALCIUM (test code = CA) mg/dL 8.5-10.1 [id number] 12:24:00* Test Item Value Reference Range Interpretation Comments GLUBED (test code = GLUBED) 344 mg/dL 74-106 H Performed by certified first coat operator at [facility] CBC W/AUTO [id number] 08:32:00* Test Item Value Reference Range Interpretation [...] = MDIFF) NO, ONLY SCAN NEEDED DIFFERENTIAL [id number] 08:32:00* Test Item Value Reference Range Interpretation Comments STAIN ACCEPTABILITY (test code = STN ACCEPTABLE) STAIN ACCEPTABLE POLYCHROMASIA (test code = POLC) 1+ HYPOCHROMIA (test code = HYPO) 1+ POIKILOCYTOSIS (test code = POIK) 1+ ANISOCYTOSIS (test code = ANISO) 1+ PLATELET ESTIMATE (test code = PLTEST) ADEQUATE PLATELET MORPHOLOGY (test code = PLTMORPH) NORMAL URINALYSIS [id number] 07:09:00* Test Item Value Reference Range Interpretation [...] per HPF FEW Urine Source? Clean CatchURINALYSIS [id number] 07:05:00* Test Item Value Reference Range Interpretation [...] HPF NONE Urine Source? Clean CatchB-TYPE NATRIURETIC [id number] 06:41:00* Test Item Value Reference Range Interpretation Comments B-TYPE NATRIURETIC PEPTIDE (test code = BNP) 14.6 pgram/mL 0-100 N CBC W/AUTO [id number] 05:36:00* Test Item Value Reference Range Interpretation [...] = MDIFF) NO, ONLY SCAN NEEDED DIFFERENTIAL [id number] 05:36:00* Test Item Value Reference Range Interpretation Comments STAIN ACCEPTABILITY (test code = STN ACCEPTABLE) MORPHOLOGY COMMENT (test code = MOC) PLATELET ESTIMATE (test code = PLTEST) PLATELET MORPHOLOGY (test code = PLTMORPH) CBC W/AUTO [id number] 05:35:00* Test Item Value Reference Range Interpretation [...] = MDIFF) NO, ONLY SCAN NEEDED DIFFERENTIAL [id number] 05:35:00* Test Item Value Reference Range Interpretation Comments STAIN ACCEPTABILITY (test code = STN ACCEPTABLE) CABOT RINGS (test code = CAB) MORPHOLOGY COMMENT (test code = MOC) PLATELET ESTIMATE (test code = PLTEST) PLATELET MORPHOLOGY (test code = PLTMORPH) CBC W/AUTO [id number] 05:35:00* Test Item Value Reference Range Interpretation [...] = MDIFF) NO, ONLY SCAN NEEDED DIFFERENTIAL [id number] 05:35:00* Test Item Value Reference Range Interpretation Comments STAIN ACCEPTABILITY (test code = STN ACCEPTABLE) MORPHOLOGY COMMENT (test code = MOC) PLATELET ESTIMATE (test code = PLTEST) PLATELET MORPHOLOGY (test code = PLTMORPH) CBC W/AUTO [id number] 05:35:00* Test Item Value Reference Range Interpretation [...] = MDIFF) NO, ONLY SCAN NEEDED DIFFERENTIAL [id number] 05:35:00* Test Item Value Reference Range Interpretation Comments STAIN ACCEPTABILITY (test code = STN ACCEPTABLE) CABOT RINGS (test code = CAB) MORPHOLOGY COMMENT (test code = MOC) PLATELET ESTIMATE (test code = PLTEST) PLATELET MORPHOLOGY (test code = PLTMORPH) BASIC METABOLIC [id number] 05:31:00* Test Item Value Reference Range Interpretation [...] CA) 8.5 mg/dL 8.5-10.1 N HEPATIC FUNCTION [id number] 05:31:00* Test Item Value Reference Range Interpretation [...] reference range due to change in reagent. [id number] 05:31:00* Test Item Value Reference Range Interpretation Comments MAGNESIUM (test code = MAG) 2.1 mg/dL 1.8-2.4 N [id number] 05:31:00* Test Item Value Reference Range Interpretation Comments TROPONIN-I (test code = TROPI) <0.015 ng/mL 0-0.045 N COVID 19 INHOUSE [id number] 04:50:00* Test Item Value Reference Range Interpretation Comments COVID 19 INHOUSE AG (test code = [id number]) NEGATIVE Is patient requiring admission or transfer? YIndication for rapid COVID-19 testi ng: Mod Clinical Suspicion- XR CHEST 1 V 2020-01-24 04:35:00 FAX: Benjamin Francis MD [phone] Ashley: B St: REG FAX: Anastacio Burgess MD Name: KALYANI TALAVERA [facility] : 1955 Age/S: 64/F [address] Unit #: [id number] Loc: [place] [address] Phys: Anastacio Burgess MD Acct: [id number] Dis Date: Status: REG ER PHONE #: [phone] Exam Date: 01/24/2020 042 FAX #: [phone] Reason: SHORTNESS OF BREATH EXAMS: CPT CODE: [id number] XR CHEST 1 V 12637 EXAM: - XR CHEST 1 V HISTORY: [...] Anastacio Burgess MD Technologist: JACINDA LYONS DIRECTOR INTERNAL AUDIT Trnscrd Da te/Time/By: 01/24/2020 (0435) : By: [email or web address] Orig Print D/T: S: 01/23 (0438) PAGE 1 Signed Report [id number] 12:58:00* Test Item Value Reference Range Interpretation Comments GLUBED (test code = GLUBED) 54 mg/dL 74-106 L Performed by certified first coat operator at [facility] BASIC METABOLIC [id number] 09:17:00* Test Item Value Reference Range Interpretation [...] CA) 8.8 mg/dL 8.5-10.1 N BASIC METABOLIC [id number] 09:06:00* Test Item Value Reference Range Interpretation [...] CALCIUM (test code = CA) mg/dL 8.5-10.1 [id number] 08:29:00* Test Item Value Reference Range Interpretation Comments GLUBED (test code = GLUBED) 160 mg/dL 74-106 H Performed by certified first coat operator at [facility] [id number] 20:47:00* Test Item Value Reference Range Interpretation Comments GLUBED (test code = GLUBED) 210 mg/dL 74-106 H Performed by certified first coat operator at [facility] [id number] 18:37:00* Test Item Value Reference Range Interpretation Comments GLUBED (test code = GLUBED) 91 mg/dL 74-106 N Performed by certified first coat operator at [facility] BASIC METABOLIC [id number] 17:55:00* Test Item Value Reference Range Interpretation [...] CA) 8.5 mg/dL 8.5-10.1 N BASIC METABOLIC [id number] 17:50:00* Test Item Value Reference Range Interpretation [...] CA) mg/dL 8.5-10.1 - XR CHEST 1 [id number] 17:38:00 FAX: Benjamin Francis MD [phone] Ashley: St: ADM Name: KALYANI CATES [facility] : [birth year] Age/S: 64/F [address] Unit #: [id number] Loc: V.3042 [place] [address] Phys: Benjamin Masters MD Acct: [id number] Dis Date: Status: ADM IN PHONE #: [phone] Exam Date: 01/13/2020 1531 FAX #: [phone] Reason: CHF EXAMS: CPT CODE: [id number] XR CHEST 1 V 98080 EXAM: Chest x-ray, one view; INFORMATION: Shortness of breath, CHF; IMPRESSION: Moderate improvement compared with the recent study from January 11, 2020: The heart is decreased in size; mild cardiomegaly remains. Lung bases are better demarcated indicating resolution of interstitial edema; mild left heart failure remains. Location code: [facility] at 1738 Reported and signed by: Jc Bravo M.D. CC: Benjamin Masters Technologist: SAMPSON Soler) Trnscrd Date/Time/By: 01/13/2020 (173) : By: LeanneGRW Orig Print D/T: S: 01/13/2020 (7945) PAGE 1 Signed Report [id number] 17:22:00* Test Item Value Reference Range Interpretation Comments GLUBED (test code = GLUBED) 84 mg/dL 74-106 N Performed by certified first coat operator at [facility] [id number] 16:46:00* Test Item Value Reference Range Interpretation Comments GLUBED (test code = GLUBED) 65 mg/dL 74-106 L Performed by certified first coat operator at [facility] BRONCH LAVAGE FLD CELL [id number] 15:32:00* Test Item Value Reference Range Interpretation [...] [id number] Carlyle Markham BRONCHIAL [id number] 14:21:00 RUN DATE: 01/13/20 [place] - Lab PAGE 1 RUN TIME: 1421 Specimen Inqui ry RUN USER: INTERFACE PATIENT: KALYANI TALAVERA ACCT #: [id number] LOC: [place] U #: [id number] AGE/SX: 64/F ROOM: [facility] RE01/07/20REG DR: Benjamin Masters MD : 57 BED: A DIS: STATUS: ADM IN TLOC: SPEC #: [id number] RECD: 01/10/20 STATUS: SHREYA BROWN #: [id number] MARILEE: 01/10/20- SUBM DR: Benjamin Masters MD ENTERED: 01/10/20 SP TYPE: BRONCH WA OTHR DR: Ivett Valderrama i, MD, Kuldip Kumar MD Nassif, George M MDORDERED: GROSS COPIES TO: Ivett Christianson MD [address] [place], [place] [id number] Harry Gutierrez MD [address] [place], [place] [id number] Taz Bravo MD [address] [facility] [address] [place] [address] Benjamin Murphy MD [address] [place] [address] PROCED URES: GROSS (01/13/20-1308) TISSUES: BRONCH LAVAGE - 60ML CLOUDY FLUID CLINICAL HISTORY COLLECTION DATE: 01/10/20 INTERSTITIAL LUNG DI SEASE FINAL DIAGNOSIS Left lingular bronchoalveolar lavage for cytol ogy and CD4/CD8 ratio: PULMONARY MACROPHAGES, NEUTROPHILS, AND A FEW COLU MNAR BRONCHIAL LINING CELLS NEGATIVE FOR MALIGNANCY CD4- CD8 RATIO 1.0: 1 (SEE INCLUDED ADX FLOW CYTOMETRY REPORT [id number]) CONTINUED ON NEXT PAGE RUN DATE: 01/13/20 [facility] PAGE 2 RUN TIME: 1421 Specimen Inquiry RUN USER: INTERFACE -- SPEC #: [id number] PATIENT: KALYANI TALAVERA #[id number] (Continued) FINAL DIAGNOSIS (Continued) BRITTNI/corby Simpson 195[address], 20626 FLOW CYTOMETRY A Flow cytometry repo rt is received from [employer] Case No:[id number] the int erpretation is as follows: Clinical [...] developed and its performance characteristics determined by [employer]. It has not been cleared or approved by the U.S. Food and Drug Administrat ion.The FDA has determined that such clearance is not necessary. This test is us ed for clinicalpurposes. It should not be regarded as investigational or for res earch. This laboratory iscertified under the Clinical Laboratory Improvement [place] ndments of 1987 (CLIA-88) as CONTINUED ON NEXT PAGE RUN DATE: 01/13/20 [place] - [facility] PAGE 3 RUN TIME: 1421 Speci men Inquiry RUN USER: INTERFACE SPEC #: [id number] PATIENT: ARIE HernandezKALYANI GUARDADO #[id number] (Continued) FLOW CYTOMETRY (Continued) qualified to perform high complexity clinical te sting. The above report was reviewed and interpretive comments are provided. The comments areapproved for the medical records of the identified patient with my electronic signature. Electronic SignatureLachelle Iyer, [employer] CPT C ode(s): [id number] ICD Code(s): R89.7 The Technical and Professional components were performed at [facility], [address] [place] [address], [place] [address], [place] [address] . MACROSCOPIC The specimen is designated as "left lingula BAL". It consists of 60 mL of cloudy fluid for processing and evaluation. Material will be submitted for CD4 CD8 ratio test. A cell block is prepared. GROSS PERFORMED AT [facility] [address] [place] [address] (W) MICROSCOPIC All of the stains, including any controls pe rformed, stain appropriately. MICROSCOPIC PERFORMED AT [facility] [address] [place] [address] [phone])[phone] PERFORMING SITE Diagnosis performed at: [facility] [address] [place], [place] [address] CONTINUED ON NEXT PAGE RUN DATE: 01/13/20 [facility] PAGE 4 RUN TIME: 1421 Specimen Inquiry RUN USER: Celestine [facility]ORENO [facility] #: [id number] PATIENT: KALYANI TALAVERA #[id number] (Continued) Signed SIGNATURE ON FILE Petty Lowe MD 01/13/20 1421 END OF REPORT GLUBED 2020-01-13 12:45:00* Test Item Value Reference Range Interpretation Comments GLUBED (test code = GLUBED) 105 mg/dL 74-106 N Performed by certified first coat operator at [facility] [id number] 08:07:00* Test Item Value Reference Range Interpretation Comments GLUBED (test code = GLUBED) 92 mg/dL 74-106 N Performed by certified first coat operator at [facility] [id number] 19:54:00* Test Item Value Reference Range Interpretation Comments GLUBED (test code = GLUBED) 149 mg/dL 74-106 H Performed by certified first coat operator at [facility] [id number] 17:05:00* Test Item Value Reference Range Interpretation Comments GLUBED (test code = GLUBED) 127 mg/dL 74-106 H Performed by certified first coat operator at [facility] [id number] 12:02:00* Test Item Value Reference Range Interpretation Comments GLUBED (test code = GLUBED) 209 mg/dL 74-106 H Performed by certified first coat operator at [facility] [id number] 08:45:00* Test Item Value Reference Range Interpretation Comments GLUBED (test code = GLUBED) 175 mg/dL 74-106 H Performed by certified first coat operator at [facility] B-TYPE NATRIURETIC [id number] 07:19:00* Test Item Value Reference Range Interpretation Comments B-TYPE NATRIURETIC PEPTIDE (test code = BNP) 28.74 pgram/mL 0-100 N COMPREHENSIVE METABOLIC [id number] 07:07:00* Test Item Value Reference Range Interpretation [...] due to change in reagent. COMPREHENSIVE METABOLIC [id number] 06:56:00* Test Item Value Reference Range Interpretation [...] code = ALKP) IUnit/L 45-117 CBC W/AUTO [id number] 06:51:00* Test Item Value Reference Range Interpretation [...] code = NRBC#) 0.00 K/mm3 0.0-0.1 N [id number] 20:46:00* Test Item Value Reference Range Interpretation Comments GLUMAGDALENA (test code = GLUBED) 257 mg/dL 74-106 H Performed by certified first coat operator at [facility] - XR CHEST 1 [id number] 18:25:00 FAX: Alfa Moscoso MD [phone] Ashley: St: [facility] FAX: Benjamin Francis MD [phone] Name: KALYANI TALAVERA [facility] : 1955 Age/S: 64/F [address] [facility] #: [id number] Loc: V.3042 [place] [address] Phys: Alfa Cassidy MD Acct: [id number] Dis Date: Status: ADM IN PHONE #: [phone] Exam Date: 01/11/2020 1825 FAX #: [phone] Reason: CHF EXAMS: CPT CODE: [id number] XR CHEST 1 V 51973 REASON FOR EXAM: CHF Exam Order Date: [...] lung volumes with findings of CHF. Location: [facility] at 1825 Reported and signed by: Dago Goodson MD CC: Alfa Cassidy MD; Benjamin Masters Technologist: SCOOBY PARSONS, RT(R); TAWANNA HURTADO RT(R) Trnscrd Date/Time/By: 01/11/2020 (1824) : By: [email or web address] Orig Print D/T: S: 01/11/2020 (1827) PAGE 1 Signed Report [id number] 16:50:00* Test Item Value Reference Range Interpretation Comments GLUBED (test code = GLUBED) 262 mg/dL 74-106 H Performed by certified first coat operator at [facility] [id number] 12:17:00* Test Item Value Reference Range Interpretation Comments GLUBED (test code = GLUBED) 348 mg/dL 74-106 H Performed by certified first coat operator at [facility] [id number] 08:51:00* Test Item Value Reference Range Interpretation Comments GLUBED (test code = GLUBED) 361 mg/dL 74-106 H Performed by certified first coat operator at [facility] BRONCH LAVAGE FLD CELL [id number] 22:17:00* Test Item Value Reference Range Interpretation [...] REVIEWED BY (test code = REVIEW) PATHOLOGIST [id number] 20:37:00* Test Item Value Reference Range Interpretation Comments GLUBED (test code = GLUBED) 334 mg/dL 74-106 H Performed by certified first coat operator at [facility] [id number] 17:59:00* Test Item Value Reference Range Interpretation Comments GLUBED (test code = GLUBED) 310 mg/dL 74-106 H Performed by certified first coat operator at [facility] [id number] 13:51:00* Test Item Value Reference Range Interpretation Comments GLUBED (test code = GLUBED) 260 mg/dL 74-106 H Performed by certified first coat operator at [facility] BASIC METABOLIC [id number] 10:17:00* Test Item Value Reference Range Interpretation [...] CA) 8.6 mg/dL 8.5-10.1 N BASIC METABOLIC [id number] 10:13:00* Test Item Value Reference Range Interpretation [...] CALCIUM (test code = CA) mg/dL 8.5-10.1 [id number] 08:31:00* Test Item Value Reference Range Interpretation Comments GLUBED (test code = GLUBED) 191 mg/dL 74-106 H Performed by certified first coat operator at [facility] CBC W/AUTO [id number] 07:02:00* Test Item Value Reference Range Interpretation [...] = MDIFF) NO, ONLY SCAN NEEDED DIFFERENTIAL [id number] 07:02:00* Test Item Value Reference Range Interpretation Comments STAIN ACCEPTABILITY (test code = STN ACCEPTABLE) STAIN ACCEPTABLE POLYCHROMASIA (test code = POLC) 1+ ANISOCYTOSIS (test code = ANISO) 2+ MICROCYTOSIS (test code = MICR) 2+ MORPHOLOGY COMMENT (test code = MOC) TEST NOT PERFORMED PLATELET ESTIMATE (test code = PLTEST) ADEQUATE PLATELET MORPHOLOGY (test code = PLTMORPH) NORMAL COMPREHENSIVE METABOLIC [id number] 05:34:00* Test Item Value Reference Range Interpretation [...] due to change in reagent. CBC W/AUTO [id number] 05:30:00* Test Item Value Reference Range Interpretation [...] = MDIFF) NO, ONLY SCAN NEEDED DIFFERENTIAL [id number] 05:30:00* Test Item Value Reference Range Interpretation Comments STAIN ACCEPTABILITY (test code = STN ACCEPTABLE) CABOT RINGS (test code = CAB) MORPHOLOGY COMMENT (test code = MOC) PLATELET ESTIMATE (test code = PLTEST) PLATELET MORPHOLOGY (test code = PLTMORPH) CBC W/AUTO [id number] 05:30:00* Test Item Value Reference Range Interpretation [...] = MDIFF) NO, ONLY SCAN NEEDED DIFFERENTIAL [id number] 05:30:00* Test Item Value Reference Range Interpretation Comments STAIN ACCEPTABILITY (test code = STN ACCEPTABLE) CABOT RINGS (test code = CAB) MORPHOLOGY COMMENT (test code = MOC) PLATELET ESTIMATE (test code = PLTEST) PLATELET MORPHOLOGY (test code = PLTMORPH) CBC W/AUTO [id number] 05:30:00* Test Item Value Reference Range Interpretation [...] = MDIFF) NO, ONLY SCAN NEEDED DIFFERENTIAL [id number] 05:30:00* Test Item Value Reference Range Interpretation Comments STAIN ACCEPTABILITY (test code = STN ACCEPTABLE) MORPHOLOGY COMMENT (test code = MOC) PLATELET ESTIMATE (test code = PLTEST) PLATELET MORPHOLOGY (test code = PLTMORPH) CBC W/AUTO [id number] 05:30:00* Test Item Value Reference Range Interpretation [...] = MDIFF) NO, ONLY SCAN NEEDED DIFFERENTIAL [id number] 05:30:00* Test Item Value Reference Range Interpretation Comments STAIN ACCEPTABILITY (test code = STN ACCEPTABLE) CABOT RINGS (test code = CAB) MORPHOLOGY COMMENT (test code = MOC) PLATELET ESTIMATE (test code = PLTEST) PLATELET MORPHOLOGY (test code = PLTMORPH) COMPREHENSIVE METABOLIC [id number] 05:24:00* Test Item Value Reference Range Interpretation [...] TOTAL (test code = ALKP) IUnit/L 45-117 [id number] 20:32:00* Test Item Value Reference Range Interpretation Comments GLUBED (test code = GLUBED) 108 mg/dL 74-106 H Performed by certified first coat operator at [facility] [id number] 16:44:00* Test Item Value Reference Range Interpretation Comments GLUBED (test code = GLUBED) 125 mg/dL 74-106 H Performed by certified first coat operator at [facility] Coronavirus 2019 nCoV [id number] 16:38:00* Test Item Value Reference Range Interpretation Comments Coronavirus 2019 nCoV Bedside (test code = COVNONPUIBED) Negative [id number] 12:17:00* Test Item Value Reference Range Interpretation Comments GLUBED (test code = GLUBED) 171 mg/dL 74-106 H Performed by certified first coat operator at [facility] [id number] 08:34:00* Test Item Value Reference Range Interpretation Comments GLUBED (test code = GLUBED) 341 mg/dL 74-106 H Performed by certified first coat operator at [facility] - CT CHEST W/[id number] 06:53:00 Name: KALYANI TALAVERA [facility] : 1955 Age/S: 64 / F [address] [facility] Unit #: [id number] Loc: [place] [address] Phys: Taz Bravo MD Acct: [id number] Dis Date: Status: ADM IN PHONE #: [phone] Exam Date: 01/08/20202247 FAX #: [phone] Reason: interstitial lung disease, pulmonary HTN EXAMS: CPT CODE: [id number] CT CHEST W/CONTRAST 50458 HISTORY: Interstitial lung disease and pulmonary hypertension. [...] and signed by: Solomon Chowdhury M.D. CC: Taz Bravo MD; Alfa Cassidy MD; Benjamin Masters Technologist:RADHA CLEMENTS(R)(CT); JORDEN CTDI: DLP: Trnscb Date/Time: 01/09/2020 (065 3) t.SDR.TH4 Orig Print D/T: S: 01/09/2020 (0656) YANETH VARGAS 1 Signed Report PROTHROMBIN [id number] 05:24:00* Test Item Value Reference Range Interpretation [...] (2.5-3.5) IS PATIENT ON ANTICOAGULANTS? NTHROMBOPLASTIN TIME [id number] 05:24:00* Test Item Value Reference Range Interpretation Comments THROMBOPLASTIN TIME PARTIAL (test code = PTT) 27.5 seconds 23.0-37. 0 N IS PATIENT ON ANTICOAGULANTS? [id number] 20:06:00* Test Item Value Reference Range Interpretation Comments GLUBED (test code = GLUBED) 162 mg/dL 74-106 H Performed by certified first coat operator at [facility] [id number] 17:04:00* Test Item Value Reference Range Interpretation Comments GLUBED (test code = GLUBED) 135 mg/dL 74-106 H Performed by certified first coat operator at [facility] [id number] 12:10:00* Test Item Value Reference Range Interpretation Comments GLUBED (test code = GLUBED) 375 mg/dL 74-106 H Performed by certified first coat operator at [facility] [id number] 08:11:00* Test Item Value Reference Range Interpretation Comments GLUBED (test code = GLUBED) 259 mg/dL 74-106 H Performed by certified first coat operator at [facility] CBC W/AUTO [id number] 05:20:00* Test Item Value Reference Range Interpretation [...] = MDIFF) NO, ONLY SCAN NEEDED DIFFERENTIAL [id number] 05:20:00* Test Item Value Reference Range Interpretation [...] (test code = PLTMORPH) NORMAL B-TYPE NATRIURETIC [id number] 05:03:00* Test Item Value Reference Range Interpretation Comments B-TYPE NATRIURETIC PEPTIDE (test code = BNP) 24.60 pgram/mL 0-100 N COMPREHENSIVE METABOLIC [id number] 04:59:00* Test Item Value Reference Range Interpretation [...] due to change in reagent. COMPREHENSIVE METABOLIC [id number] 04:50:00* Test Item Value Reference Range Interpretation [...] code = ALKP) IUnit/L 45-117 CBC W/AUTO [id number] 04:45:00* Test Item Value Reference Range Interpretation [...] = MDIFF) NO, ONLY SCAN NEEDED DIFFERENTIAL [id number] 04:45:00* Test Item Value Reference Range Interpretation Comments STAIN ACCEPTABILITY (test code = STN ACCEPTABLE) CABOT RINGS (test code = CAB) MORPHOLOGY COMMENT (test code = MOC) PLATELET ESTIMATE (test code = PLTEST) PLATELET MORPHOLOGY (test code = PLTMORPH) CBC W/AUTO [id number] 04:45:00* Test Item Value Reference Range Interpretation [...] = MDIFF) NO, ONLY SCAN NEEDED DIFFERENTIAL [id number] 04:45:00* Test Item Value Reference Range Interpretation Comments STAIN ACCEPTABILITY (test code = STN ACCEPTABLE) CABOT RINGS (test code = CAB) MORPHOLOGY COMMENT (test code = MOC) PLATELET ESTIMATE (test code = PLTEST) PLATELET MORPHOLOGY (test code = PLTMORPH) CBC W/AUTO [id number] 04:45:00* Test Item Value Reference Range Interpretation [...] = MDIFF) NO, ONLY SCAN NEEDED DIFFERENTIAL [id number] 04:45:00* Test Item Value Reference Range Interpretation Comments STAIN ACCEPTABILITY (test code = STN ACCEPTABLE) MORPHOLOGY COMMENT (test code = MOC) PLATELET ESTIMATE (test code = PLTEST) PLATELET MORPHOLOGY (test code = PLTMORPH) CBC W/AUTO [id number] 04:45:00* Test Item Value Reference Range Interpretation [...] = MDIFF) NO, ONLY SCAN NEEDED DIFFERENTIAL [id number] 04:45:00* Test Item Value Reference Range Interpretation Comments STAIN ACCEPTABILITY (test code = STN ACCEPTABLE) CABOT RINGS (test code = CAB) MORPHOLOGY COMMENT (test code = MOC) PLATELET ESTIMATE (test code = PLTEST) PLATELET MORPHOLOGY (test code = PLTMORPH) [id number] 23:24:00* Test Item Value Reference Range Interpretation Comments GLUBED (test code = GLUBED) 292 mg/dL 74-106 H Performed by certified first coat operator at [facility] [id number] 19:46:00* Test Item Value Reference Range Interpretation Comments GLUBED (test code = GLUBED) 306 mg/dL 74-106 H Performed by certified first coat operator at [facility] - XR CHEST 1 [id number] 19:39:00 FAX: Taz Mccormick MD [phone] [place]: St: ADM FAX: Alfa Moscoso MD [phone] FAX: Benjamin Francis MD [phone] Name: KALYANI TALAVERA [facility] : 1955 Age/S: 64/F [address] [facility] Unit #: [id number] Loc: V.30[address] [place] [address] Phys: Taz Bravo MD Acct: [id number] Dis Date: Status: ADM IN ONE #: [phone] Exam Date: 01/07/2020 1835 FAX #: [phone] Reason: chf EXAMS: CPT CODE: [id number] XR CHEST 1 V 06830 EXAM: Chest x- ray, one view; INFORMATION: Shortness of breath, CHF; IMPRESSION: 1. Compared with yesterday's study, the left lung is sli ghtly better aerated; 2. No further significant changes; persist ent cardiomegaly and interstitial edema consistent with left heart failu re. Location code: [facility] Electronically Sig rainer by Gregory Bravo on 01/07/2020 at 1939 Reported and signed by: Jc Bravo M.D. CC: Taz Bravo MD; Alfa Cassidy MD; Benjamin Masters Technologist: RT Frankie(R Trnscrd Date/Time/By: 01/07/2020 (1938) : By: Dannielle Orig Print D/T: S: 0 01/07/2020 (1941) PAGE 1 Signed Re port [id number] 16:14:00* Test Item Value Reference Range Interpretation Comments GLUBED (test code = GLUBED) 67 mg/dL 74-106 L Performed by certified first coat operator at [facility] [id number] 11:11:00* Test Item Value Reference Range Interpretation Comments GLUBED (test code = GLUBED) 320 mg/dL 74-106 H Performed by certified first coat operator at [facility] [id number] 07:56:00* Test Item Value Reference Range Interpretation Comments GLUBED (test code = GLUBED) 426 mg/dL 74-106 H Performed by certified first coat operator at [facility] [id number] 20:36:00* Test Item Value Reference Range Interpretation Comments GLUBED (test code = GLUBED) > 500 mg/dL 74-106 HH [facility] - US CHST W/[id number] 20:29:00 Name: KALYANI TALAVERA [facility] : 1955 Age/S: 64 / F [address] [facility] Unit #: [id number] [place] [address] Phys: Taz Bravo MD Acct: [id number] Dis Date: Status: ADM IN PHONE #: [phone] Exam Date: 01/06/2020 1950 FAX #: [phone] Reason: pleural effusions EXAMS: CPT CODE: [id number] US CHST W/MEDIASTINUM 48404 EXAM: Ultrasound of the chest; INFORMATION: Shortness of breath, pleural effusions? IMPRESSION: No sonographic evidence of pleural effusions. Location code: [facility] at 2028 Reported and signed by: Jc Bravo M.D. CC: Taz Bravo MD; Benjamin Masters Technologist: Tamy Lanier RDMS Trnscb Date/Time: 01/06/2020 (2028) LeanneGRW Orig Print D/T: S: 01/06/2020 (2031) Probe: PAGE 1 Signed Report [id number] 18:13:00* Test Item Value Reference Range Interpretation Comments GLUBED (test code = GLUBED) > 500 mg/dL 74-106 HH [facility] [id number] 16:16:00* Test Item Value Reference Range Interpretation Comments GLUBED (test code = GLUBED) > 500 mg/dL 74-106 HH [facility] [id number] 13:43:00* Test Item Value Reference Range Interpretation Comments TROPONIN-I (test code = TROPI) <0.015 ng/mL 0-0.045 N COMMENTS TO DATA RECOVERY PLANNER: COLLECT 3 HOURS AFTER PREVIOUS SAMPLEB-TYPE NATRIURETIC [id number] 10:13:00* Test Item Value Reference Range Interpretation Comments B-TYPE NATRIURETIC PEPTIDE (test code = BNP) 44.58 pgram/mL 0-100 N BASIC METABOLIC [id number] 06:56:00* Test Item Value Reference Range Interpretation [...] code = CA) 8.8 mg/dL 8.5-10.1 N [id number] 06:56:00* Test Item Value Reference Range Interpretation Comments TROPONIN-I (test code = TROPI) <0.015 ng/mL 0-0.045 N BASIC METABOLIC [id number] 06:43:00* Test Item Value Reference Range Interpretation [...] CALCIUM (test code = CA) mg/dL 8.5-10.1 [id number] 06:43:00* Test Item Value Reference Range Interpretation Comments TROPONIN-I (test code = TROPI) ng/mL 0-0.045 CBC W/O [id number] 06:22:00* Test Item Value Reference Range Interpretation [...] fL 6.7-11.0 N - XR CHEST 1 [id number] 06:03:00 FAX: Colton Khalil MD [phone] [place]: St: [facility] FAX: Benjamin Francis MD [phone] Name: KALYANI TALAVERA [facility] : 1955 Age/S: 64/F [address] Unit #: [id number] Loc: [place] [address] Phys: Colton Khalil MD Acct: [id number] Dis Date: Status: REG ER PHONE #: [phone] Exam Date: 01/06/2020 0539 FAX #: [phone] Reason: Shortness of Breath EXAMS: CPT CODE: [id number] XR CHEST 1 V 77952 HISTORY: Shortness of breath Location: C3 COMPARISON:12/23/2019 FINDINGS: There is cardiomegaly with vascular congestion perihilar opacity. No pneumothorax. No other changes compared to prior study. IMPRESSION: 1. Findings of CHF/volume overload increased compared to prior exam. at 0603 Reported and signed by: Kizzy Dietrich MD CC: Colton Khalil MD; Benjamin Mastersologist: Kizzy Cisse RT(R) Trnscrd Date/Time/By: 01/06/2020 (602) : By: [email or web address] Orig Print D/T: S: 01/06/2020 (605) PAGE 1 Signed Report [id number] 07:49:00* Test Item Value Reference Range Interpretation Comments GLUBED (test code = GLUBED) 237 mg/dL 74-106 H Performed by certified first coat operator at [facility] BASIC METABOLIC [id number] 05:57:00* Test Item Value Reference Range Interpretation [...] CA) 8.5 mg/dL 8.5-10.1 N BASIC METABOLIC [id number] 05:49:00* Test Item Value Reference Range Interpretation [...] CALCIUM (test code = CA) mg/dL 8.5-10.1 [id number] 20:28:00* Test Item Value Reference Range Interpretation Comments GLUBED (test code = GLUBED) 211 mg/dL 74-106 H Performed by certified first coat operator at [facility] [id number] 17:59:00* Test Item Value Reference Range Interpretation Comments GLUBED (test code = GLUBED) 254 mg/dL 74-106 H Performed by certified first coat operator at [facility] [id number] 17:59:00* Test Item Value Reference Range Interpretation Comments GLUBED (test code = GLUBED) 259 mg/dL 74-106 H Performed by certified first coat operator at [facility] BASIC METABOLIC [id number] 11:13:00* Test Item Value Reference Range Interpretation [...] CA) 8.2 mg/dL 8.5-10.1 L BASIC METABOLIC [id number] 11:08:00* Test Item Value Reference Range Interpretation [...] CALCIUM (test code = CA) mg/dL 8.5-10.1 [id number] 08:42:00* Test Item Value Reference Range Interpretation Comments GLUBED (test code = GLUBED) 195 mg/dL 74-106 H Performed by certified first coat operator at [facility] [id number] 20:18:00* Test Item Value Reference Range Interpretation Comments GLUBED (test code = GLUBED) 238 mg/dL 74-106 H Performed by certified first coat operator at [facility] [id number] 16:32:00* Test Item Value Reference Range Interpretation Comments GLUBED (test code = GLUBED) 149 mg/dL 74-106 H Performed by certified first coat operator at [facility] [id number] 12:15:00* Test Item Value Reference Range Interpretation Comments GLUBED (test code = GLUBED) 189 mg/dL 74-106 H Performed by certified first coat operator at [facility] BASIC METABOLIC [id number] 09:00:00* Test Item Value Reference Range Interpretation [...] code = CA) 8.4 mg/dL 8.5-10.1 L [id number] 09:00:00* Test Item Value Reference Range Interpretation Comments MAGNESIUM (test code = MAG) 1.9 mg/dL 1.8-2.4 N [id number] 07:52:00* Test Item Value Reference Range Interpretation Comments GLUBED (test code = GLUBED) 251 mg/dL 74-106 H Performed by certified first coat operator at [facility] [id number] 22:38:00* Test Item Value Reference Range Interpretation Comments GLUBED (test code = GLUBED) 157 mg/dL 74-106 H Performed by certified first coat operator at [facility] [id number] 21:25:00* Test Item Value Reference Range Interpretation Comments GLUBED (test code = GLUBED) 154 mg/dL 74-106 H Performed by certified first coat operator at [facility] [id number] 16:46:00* Test Item Value Reference Range Interpretation Comments GLUBED (test code = GLUBED) 156 mg/dL 74-106 H Performed by certified first coat operator at [facility] [id number] 10:44:00* Test Item Value Reference Range Interpretation Comments GLUBED (test code = GLUBED) 240 mg/dL 74-106 H Performed by certified first coat operator at [facility] [id number] 07:55:00* Test Item Value Reference Range Interpretation Comments GLUBED (test code = GLUBED) 178 mg/dL 74-106 H Performed by certified first coat operator at [facility] BASIC METABOLIC [id number] 06:00:00* Test Item Value Reference Range Interpretation [...] code = CA) 8.4 mg/dL 8.5-10.1 L [id number] 06:00:00* Test Item Value Reference Range Interpretation Comments MAGNESIUM (test code = MAG) 2.0 mg/dL 1.8-2.4 N [id number] 21:31:00* Test Item Value Reference Range Interpretation Comments GLUBED (test code = GLUBED) 461 mg/dL 74-106 H Performed by certified first coat operator at [facility] [id number] 15:49:00* Test Item Value Reference Range Interpretation Comments GLUBED (test code = GLUBED) 400 mg/dL 74-106 H Performed by certified first coat operator at [facility] [id number] 12:49:00* Test Item Value Reference Range Interpretation Comments GLUBED (test code = GLUBED) 339 mg/dL 74-106 H Performed by certified first coat operator at [facility] [id number] 07:41:00* Test Item Value Reference Range Interpretation Comments GLUBED (test code = GLUBED) 328 mg/dL 74-106 H Performed by certified first coat operator at [facility] BASIC METABOLIC [id number] 05:42:00* Test Item Value Reference Range Interpretation [...] CA) 8.5 mg/dL 8.5-10.1 N BASIC METABOLIC [id number] 05:33:00* Test Item Value Reference Range Interpretation [...] CALCIUM (test code = CA) mg/dL 8.5-10.1 [id number] 03:29:00* Test Item Value Reference Range Interpretation Comments GLUBED (test code = GLUBED) 221 mg/dL 74-106 H Performed by certified first coat operator at [facility] [id number] 20:20:00* Test Item Value Reference Range Interpretation Comments GLUBED (test code = GLUBED) 406 mg/dL 74-106 H Performed by certified first coat operator at [facility] [id number] 18:02:00* Test Item Value Reference Range Interpretation Comments TROPONIN-I (test code = TROPI) <0.015 ng/mL 0-0.045 N COMMENTS TO DATA RECOVERY PLANNER: COLLECT 3 HOURS AFTER PREVIOUS [id number] 17:46:00* Test Item Value Reference Range Interpretation Comments MAGNESIUM (test code = MAG) 2.0 mg/dL 1.8-2.4 N [id number] 17:35:00* Test Item Value Reference Range Interpretation Comments GLUBED (test code = GLUBED) 363 mg/dL 74-106 H Performed by certified first coat operator at [facility] [id number] 13:25:00* Test Item Value Reference Range Interpretation Comments TROPONIN-I (test code = TROPI) <0.015 ng/mL 0-0.045 N COMMENTS TO DATA RECOVERY PLANNER: COLLECT 3 HOURS AFTER PREVIOUS SAMPLEURINALYSIS [id number] 10:05:00* Test Item Value Reference Range Interpretation [...] #/HPF NONE A Urine Source? Clean CatchURINALYSIS [id number] 10:05:00* Test Item Value Reference Range Interpretation [...] A Urine Source? Clean CatchCoronavirus 2019 nCoV [id number] 07:24:00* Test Item Value Reference Range Interpretation Comments Coronavirus 2019 nCoV Bedside (test code = [id number]) Negative Is patient requiring admission or transfer? [...] = MDIFF) NO, ONLY SCAN NEEDED DIFFERENTIAL [id number] 07:22:00* Test Item Value Reference Range Interpretation Comments STAIN ACCEPTABILITY (test code = STN ACCEPTABLE) STAIN ACCEPTABLE POLYCHROMASIA (test code = POLC) 1+ POIKILOCYTOSIS (test code = POIK) 1+ ANISOCYTOSIS (test code = ANISO) 1+ MICROCYTOSIS (test code = MICR) 1+ PLATELET ESTIMATE (test code = PLTEST) DECREASED PLATELET MORPHOLOGY (test code = PLTMORPH) NORMAL B-TYPE NATRIURETIC [id number] 07:19:00* Test Item Value Reference Range Interpretation Comments B-TYPE NATRIURETIC PEPTIDE (test code = BNP) 38.62 pgram/mL 0-100 N BASIC METABOLIC [id number] 06:41:00* Test Item Value Reference Range Interpretation [...] CA) 8.7 mg/dL 8.5-10.1 N HEPATIC FUNCTION [id number] 06:41:00* Test Item Value Reference Range Interpretation [...] reference range due to change in reagent. [id number] 06:41:00* Test Item Value Reference Range Interpretation Comments LIPASE (test code = LIP) 91 U/L 73.0-393.0 N [id number] 06:41:00* Test Item Value Reference Range Interpretation Comments TROPONIN-I (test code = TROPI) <0.015 ng/mL 0-0.045 N PROTHROMBIN [id number] 06:31:00* Test Item Value Reference Range Interpretation [...] (2.5-3.5) IS PATIENT ON ANTICOAGULANTS? NTHROMBOPLASTIN TIME [id number] 06:31:00* Test Item Value Reference Range Interpretation Comments THROMBOPLASTIN TIME PARTIAL (test code = PTT) 30.8 seconds 23.0-37. 0 N IS PATIENT ON ANTICOAGULANTS? NCBC W/AUTO [id number] 06:30:00* Test Item Value Reference Range Interpretation [...] = MDIFF) NO, ONLY SCAN NEEDED DIFFERENTIAL [id number] 06:30:00* Test Item Value Reference Range Interpretation Comments STAIN ACCEPTABILITY (test code = STN ACCEPTABLE) CABOT RINGS (test code = CAB) MORPHOLOGY COMMENT (test code = MOC) PLATELET ESTIMATE (test code = PLTEST) PLATELET MORPHOLOGY (test code = PLTMORPH) BASIC METABOLIC [id number] 06:30:00* Test Item Value Reference Range Interpretation [...] code = CA) mg/dL 8.5-10.1 HEPATIC FUNCTION [id number] 06:30:00* Test Item Value Reference Range Interpretation [...] TOTAL (test code = ALKP) IUnit/L 45-117 [id number] 06:30:00* Test Item Value Reference Range Interpretation Comments LIPASE (test code = LIP) U/L 73.0-393.0 [id number] 06:30:00* Test Item Value Reference Range Interpretation Comments TROPONIN-I (test code = TROPI) ng/mL 0-0.045 CBC W/AUTO [id number] 06:30:00* Test Item Value Reference Range Interpretation [...] = MDIFF) NO, ONLY SCAN NEEDED DIFFERENTIAL [id number] 06:30:00* Test Item Value Reference Range Interpretation Comments STAIN ACCEPTABILITY (test code = STN ACCEPTABLE) CABOT RINGS (test code = CAB) MORPHOLOGY COMMENT (test code = MOC) PLATELET ESTIMATE (test code = PLTEST) PLATELET MORPHOLOGY (test code = PLTMORPH) CBC W/AUTO [id number] 06:30:00* Test Item Value Reference Range Interpretation [...] = MDIFF) NO, ONLY SCAN NEEDED DIFFERENTIAL [id number] 06:30:00* Test Item Value Reference Range Interpretation Comments STAIN ACCEPTABILITY (test code = STN ACCEPTABLE) MORPHOLOGY COMMENT (test code = MOC) PLATELET ESTIMATE (test code = PLTEST) PLATELET MORPHOLOGY (test code = PLTMORPH) CBC W/AUTO [id number] 06:30:00* Test Item Value Reference Range Interpretation [...] = MDIFF) NO, ONLY SCAN NEEDED DIFFERENTIAL [id number] 06:30:00* Test Item Value Reference Range Interpretation Comments STAIN ACCEPTABILITY (test code = STN ACCEPTABLE) CABOT RINGS (test code = CAB) MORPHOLOGY COMMENT (test code = MOC) PLATELET ESTIMATE (test code = PLTEST) PLATELET MORPHOLOGY (test code = PLTMORPH) - XR CHEST 1 [id number] 05:45:00 FAX: Benjamin Francis MD [phone] [place]: St: REG FAX: Leonora Norton [phone] Name: KALYANI TALAVERA [facility] : 1955 Age/S: 64/F [address] [facility] Unit #: [id number] Loc: [place] [address] Phys: Leonora Goins MD Acct: [id number] Dis Date: Status: REG ER PHONE #: [phone] Exam Date: 12/23/2019 05 FAX #: [phone] Reason: SHORTNESS OF BREATH EXAMS: CPT CODE: [id number] XR CHEST 1 V 06464 AFTER HOURS SERVICE ON: 12/23/2019 5:44 AM AP Portable Chest Location Code M12 HISTORY: SHORTNESS OF BREATH FINDINGS: There is pulmonary vascular congestion, slightly more pronounced than 12/16/2019. No consolidation or pleural effusion is seen. There is no pneumothorax. Cardiac silhouette is enlarged. Study is limited by shallow inspiration. IMPRESSION: Slightly increasing pulmonary vascular congestion. Interstitial pneumonia should be excluded clinically. at 5745 Reported and signed by: Cr Hilton M.D. CC: Benjamin Masters; Leonora Goins MD Technologist: SUSAN HAMMONDS JR Trnscrd Date/Time/By: 12/23/2019 (0545) : By: [email or web address] Orig Print D/T: S: 12/23/2019 (1484) PAGE 1 Signed Report B-TYPE NATRIURETIC [id number] 05:44:00* Test Item Value Reference Range Interpretation Comments B-TYPE NATRIURETIC PEPTIDE (test code = BNP) 38.94 pgram/mL 0-100 N Coronavirus 2019 nCoV [id number] 04:56:00* Test Item Value Reference Range Interpretation Comments Coronavirus 2019 nCoV Bedside (test code = [id number]) Negative Is patient requiring admission or transfer? YIndication for rapid COVID-19 testi ng: Mod Clinical SuspicionBASIC METABOLIC [id number] 04:48:00* Test Item Value Reference Range Interpretation [...] code = CA) 8.8 mg/dL 8.5-10.1 N [id number] 04:48:00* Test Item Value Reference Range Interpretation Comments TROPONIN-I (test code = TROPI) <0.015 ng/mL 0-0.045 N CBC W/O [id number] 04:39:00* Test Item Value Reference Range Interpretation [...] MPV) 10.6 fL 6.7-11.0 N BASIC METABOLIC [id number] 04:37:00* Test Item Value Reference Range Interpretation [...] CALCIUM (test code = CA) mg/dL 8.5-10.1 [id number] 04:37:00* Test Item Value Reference Range Interpretation Comments TROPONIN-I (test code = TROPI) ng/mL 0-0.045 - XR CHEST 1 [id number] 03:58:00 FAX: Benjamin Francis MD [phone] Ashley: B St: REG FAX: Vince Jones DO Name: KALYANI TALAVERA [facility] : 1955 Age/S: 64/F [address] [facility] Unit #: [id number] Loc: [place] [address] Phys: Vince Jones DO Acct: [id number] Dis Date: Status: REG ER PHONE #: [phone] Exam Date: 12/16/2019 9520 FAX #: [phone] Reason: Shortness of Breath EXAMS: CPT CODE: [id number] XR CHEST 1 V 83555 EXAM: - XR CHEST 1 V HISTORY: [...] [email or web address] Orig Print D/T: S : 12/16/2019 (0403) PAGE 1 Signed Report B-TYPE NATRIURETIC [id number] 03:51:00* Test Item Value Reference Range Interpretation Comments B-TYPE NATRIURETIC PEPTIDE (test code = BNP) 93.94 pgram/mL 0-100 N BASIC METABOLIC [id number] 03:42:00* Test Item Value Reference Range Interpretation [...] code = CA) 8.9 mg/dL 8.5-10.1 N [id number] 03:42:00* Test Item Value Reference Range Interpretation Comments TROPONIN-I (test code = TROPI) <0.015 ng/mL 0-0.045 N - XR CHEST 1 [id number] 03:13:00 FAX: Jani Roque [phone] [place]: [facility]: [facility] FAX: Benjamin Francis MD [phone] Name: KALYANI TALAVERA [facility] : 1955 Age/S: 64/F [address] Unit #: [id number] Loc: [place] [address] Phys: Jani Roque MD Acct: [id number] Dis Date: Status: REG ER PHONE #: [phone] Exam Date: 12/12/2019 0233 FAX #: [phone] Reason: Shortness of Breath EXAMS: CPT CODE: [id number] XR CHEST 1 V 06549 - XR CHEST 1 V, 12/12/2019 2:26 [...] 12/12/2019 (315) PAGE 1 Signed Report PROTHROMBIN [id number] 03:11:00* Test Item Value Reference Range Interpretation [...] (2.5-3.5) IS PATIENT ON ANTICOAGULANTS? NTHROMBOPLASTIN TIME [id number] 03:11:00* Test Item Value Reference Range Interpretation Comments THROMBOPLASTIN TIME PARTIAL (test code = PTT) 33.6 seconds 23.0-37. 0 N IS PATIENT ON ANTICOAGULANTS? NBASIC METABOLIC [id number] 03:05:00* Test Item Value Reference Range Interpretation [...] code = CA) 8.9 mg/dL 8.5-10.1 N [id number] 03:05:00* Test Item Value Reference Range Interpretation Comments TROPONIN-I (test code = TROPI) ng/mL 0-0.045 CBC W/O [id number] 02:54:00* Test Item Value Reference Range Interpretation [...] code = MPV) 10.0 fL 6.7-11.0 N [id number] 15:43:00* Test Item Value Reference Range Interpretation Comments GLUBED (test code = GLUBED) 157 mg/dL 74-106 H Performed by certified first coat operator at [facility] BASIC METABOLIC [id number] 14:27:00* Test Item Value Reference Range Interpretation [...] CA) 8.5 mg/dL 8.5-10.1 N BASIC METABOLIC [id number] 14:23:00* Test Item Value Reference Range Interpretation [...] code = CA) 8.5 mg/dL 8.5-10.1 N [id number] 11:31:00* Test Item Value Reference Range Interpretation Comments GLUBED (test code = GLUBED) 92 mg/dL 74-106 N Performed by certified first coat operator at [facility] [id number] 07:50:00* Test Item Value Reference Range Interpretation Comments GLUBED (test code = GLUBED) 172 mg/dL 74-106 H Performed by certified first coat operator at [facility] [id number] 00:32:00* Test Item Value Reference Range Interpretation Comments GLUBED (test code = GLUBED) 71 mg/dL 74-106 L Performed by certified first coat operator at [facility] [id number] 21:13:00* Test Item Value Reference Range Interpretation Comments GLUBED (test code = GLUBED) 110 mg/dL 74-106 H Performed by certified first coat operator at [facility] [id number] 16:45:00* Test Item Value Reference Range Interpretation Comments GLUBED (test code = GLUBED) 192 mg/dL 74-106 H [facility] BASIC METABOLIC [id number] 15:12:00* Test Item Value Reference Range Interpretation [...] code = CA) 8.3 mg/dL 8.5-10.1 L [id number] 15:12:00* Test Item Value Reference Range Interpretation Comments MAGNESIUM (test code = MAG) 2.2 mg/dL 1.8-2.4 N BASIC METABOLIC [id number] 15:07:00* Test Item Value Reference Range Interpretation [...] CALCIUM (test code = CA) mg/dL 8.5-10.1 [id number] 15:07:00* Test Item Value Reference Range Interpretation Comments MAGNESIUM (test code = MAG) mg/dL 1.8-2.4 [id number] 13:08:00* Test Item Value Reference Range Interpretation Comments GLUBED (test code = GLUBED) 107 mg/dL 74-106 H [facility] [id number] 08:18:00* Test Item Value Reference Range Interpretation Comments GLUBED (test code = GLUBED) 184 mg/dL 74-106 H [facility] certified [facility] [id number] 06:54:00* Test Item Value Reference Range Interpretation Comments GLUBED (test code = GLUBED) 141 mg/dL 74-106 H Performed by certified first coat operator at [facility] [id number] 20:59:00* Test Item Value Reference Range Interpretation Comments GLUBED (test code = GLUBED) 100 mg/dL 74-106 N Performed by certified first coat operator at [facility] [id number] 17:20:00* Test Item Value Reference Range Interpretation Comments GLUBED (test code = GLUBED) 152 mg/dL 74-106 H [facility] certified [facility] [id number] 16:08:00* Test Item Value Reference Range Interpretation Comments GLUBED (test code = GLUBED) 223 mg/dL 74-106 H Performed by certified first coat operator at [facility] [id number] 12:35:00* Test Item Value Reference Range Interpretation Comments GLUBED (test code = GLUBED) 262 mg/dL 74-106 H Performed by certified first coat operator at [facility] [id number] 08:13:00* Test Item Value Reference Range Interpretation Comments GLUBED (test code = GLUBED) 86 mg/dL 74-106 N Performed by certified first coat operator at [facility] [id number] 23:34:00* Test Item Value Reference Range Interpretation Comments GLUBED (test code = GLUBED) 294 mg/dL 74-106 H Performed by certified first coat operator at [facility] [id number] 20:47:00* Test Item Value Reference Range Interpretation Comments GLUBED (test code = GLUBED) 262 mg/dL 74-106 H Performed by certified first coat operator at [facility] [id number] 16:20:00* Test Item Value Reference Range Interpretation Comments GLUBED (test code = GLUBED) 62 mg/dL 74-106 L Performed by certified first coat operator at [facility] [id number] 12:23:00* Test Item Value Reference Range Interpretation Comments GLUBED (test code = GLUBED) 203 mg/dL 74-106 H Performed by certified first coat operator at [facility] [id number] 08:24:00* Test Item Value Reference Range Interpretation Comments GLUBED (test code = GLUBED) 316 mg/dL 74-106 H Performed by certified first coat operator at [facility] [id number] 20:06:00* Test Item Value Reference Range Interpretation Comments GLUBED (test code = GLUBED) 416 mg/dL 74-106 H Performed by certified first coat operator at [facility] [id number] 15:45:00* Test Item Value Reference Range Interpretation Comments GLUBED (test code = GLUBED) 298 mg/dL 74-106 H [facility] [id number] 12:18:00* Test Item Value Reference Range Interpretation Comments TROPONIN-I (test code = TROPI) <0.015 ng/mL 0-0.045 N COMMENTS TO DATA RECOVERY PLANNER: COLLECT 3 HOURS AFTER PREVIOUS [id number] 07:57:00* Test Item Value Reference Range Interpretation Comments TROPONIN-I (test code = TROPI) <0.015 ng/mL 0-0.045 N COMMENTS TO DATA RECOVERY PLANNER: COLLECT 3 HOURS AFTER PREVIOUS SAMPLEB-TYPE NATRIURETIC [id number] 01:27:00* Test Item Value Reference Range Interpretation Comments B-TYPE NATRIURETIC PEPTIDE (test code = BNP) 88.96 pgram/mL 0-100 N BASIC METABOLIC [id number] 00:47:00* Test Item Value Reference Range Interpretation [...] code = CA) 8.8 mg/dL 8.5-10.1 N [id number] 00:47:00* Test Item Value Reference Range Interpretation Comments TROPONIN-I (test code = TROPI) <0.015 ng/mL 0-0.045 N CBC W/O [id number] 00:42:00* Test Item Value Reference Range Interpretation [...] MPV) 10.8 fL 6.7-11.0 N BASIC METABOLIC [id number] 00:36:00* Test Item Value Reference Range Interpretation [...] code = CA) 8.8 mg/dL 8.5-10.1 N [id number] 00:36:00* Test Item Value Reference Range Interpretation Comments TROPONIN-I (test code = TROPI) ng/mL 0-0.045 - XR CHEST 1 [id number] 00:02:00 FAX: Russ Malcolm MD [phone] Ashley: St: REG FAX: Benjamin Francis MD [phone] Name: KALYANI TALAVERA [facility] : 1955 Age/S: 64/F [address] [facility] Unit #: [id number] Loc: [place] [address] Phys: Russ Malcolm MD Acct: [id number] Dis Date: Status: REG ER PHONE #: [phone] Exam Date: 12/03/2019 2352 FAX #: [phone] Reason: Shortness of Breath EXAMS: CPT CODE: [id number] XR CHEST 1 V 08098 Exam: AP chest Location: H 12 History: [...] Dunbar Trnscrd Date/Time/By: 12/04/2019 (0002) : By: Leanne Orig Print D/T: S: 12/04/2019 (0005) PAGE 1 Signed Report [id number] 12:24:00* Test Item Value Reference Range Interpretation Comments GLUBED (test code = GLUBED) 151 mg/dL 74-106 H [facility] [id number] 08:12:00* Test Item Value Reference Range Interpretation Comments GLUBED (test code = GLUBED) 169 mg/dL 74-106 H [facility] certified first [facility] BASIC METABOLIC [id number] 06:37:00* Test Item Value Reference Range Interpretation [...] code = CA) 8.9 mg/dL 8.5-10.1 N [id number] 20:42:00* Test Item Value Reference Range Interpretation Comments GLUBED (test code = GLUBED) 223 mg/dL 74-106 H Performed by certified first coat operator at [facility] [id number] 16:09:00* Test Item Value Reference Range Interpretation Comments GLUBED (test code = GLUBED) 205 mg/dL 74-106 H Performed by certified first coat operator at [facility] [id number] 11:35:00* Test Item Value Reference Range Interpretation Comments GLUBED (test code = GLUBED) 338 mg/dL 74-106 H Performed by certified first coat operator at [facility] [id number] 08:04:00* Test Item Value Reference Range Interpretation Comments GLUBED (test code = GLUBED) 240 mg/dL 74-106 H Performed by certified first coat operator at [facility] BASIC METABOLIC [id number] 07:18:00* Test Item Value Reference Range Interpretation [...] CA) 8.6 mg/dL 8.5-10.1 N BASIC METABOLIC [id number] 07:14:00* Test Item Value Reference Range Interpretation [...] CALCIUM (test code = CA) mg/dL 8.5-10.1 [id number] 20:28:00* Test Item Value Reference Range Interpretation Comments GLUBED (test code = GLUBED) 343 mg/dL 74-106 H Performed by certified first coat operator at [facility] [id number] 16:32:00* Test Item Value Reference Range Interpretation Comments GLUBED (test code = GLUBED) 279 mg/dL 74-106 H Performed by certified first coat operator at [facility] [id number] 11:49:00* Test Item Value Reference Range Interpretation Comments GLUBED (test code = GLUBED) 290 mg/dL 74-106 H Performed by certified first coat operator at [facility] URINALYSIS [id number] 10:01:00* Test Item Value Reference Range Interpretation [...] FEW #/HPF NONE A Urine Source? MidstreamURINALYSIS [id number] 10:00:00* Test Item Value Reference Range Interpretation [...] = BACU) per HPF NONE Urine Source? [id number] 08:37:00* Test Item Value Reference Range Interpretation Comments GLUBED (test code = GLUBED) 260 mg/dL 74-106 H Performed by certified first coat operator at [facility] [id number] 05:57:00* Test Item Value Reference Range Interpretation Comments GLUBED (test code = GLUBED) 253 mg/dL 74-106 H Performed by certified first coat operator at [facility] BASIC METABOLIC [id number] 05:52:00* Test Item Value Reference Range Interpretation [...] CA) 8.8 mg/dL 8.5-10.1 N BASIC METABOLIC [id number] 05:49:00* Test Item Value Reference Range Interpretation [...] CALCIUM (test code = CA) mg/dL 8.5-10.1 [id number] 23:00:00* Test Item Value Reference Range Interpretation Comments GLUBED (test code = GLUBED) 108 mg/dL 74-106 H Performed by certified first coat operator at [facility] [id number] 22:22:00* Test Item Value Reference Range Interpretation Comments GLUBED (test code = GLUBED) 111 mg/dL 74-106 H Performed by certified first coat operator at [facility] URINALYSIS [id number] 20:09:00* Test Item Value Reference Range Interpretation [...] = BACU) FEW #/HPF NONE Urine Source? [id number] 16:18:00* Test Item Value Reference Range Interpretation Comments GLUBED (test code = GLUBED) 196 mg/dL 74-106 H Performed by certified first coat operator at [facility] [id number] 12:03:00* Test Item Value Reference Range Interpretation Comments GLUBED (test code = GLUBED) 190 mg/dL 74-106 H Performed by certified first coat operator at [facility] [id number] 08:22:00* Test Item Value Reference Range Interpretation Comments GLUBED (test code = GLUBED) 264 mg/dL 74-106 H [facility] certified first [facility] BASIC METABOLIC [id number] 07:56:00* Test Item Value Reference Range Interpretation [...] CA) 8.6 mg/dL 8.5-10.1 N BASIC METABOLIC [id number] 05:39:00* Test Item Value Reference Range Interpretation [...] code = CA) mg/dL 8.5-10.1 CBC W/AUTO [id number] 05:19:00* Test Item Value Reference Range Interpretation [...] = MDIFF) NO, ONLY SCAN NEEDED DIFFERENTIAL [id number] 05:19:00* Test Item Value Reference Range Interpretation Comments STAIN ACCEPTABILITY (test code = STN ACCEPTABLE) STAIN ACCEPTABLE ANISOCYTOSIS (test code = ANISO) 2+ MICROCYTOSIS (test code = MICR) 2+ MORPHOLOGY COMMENT (test code = MOC) TEST NOT PERFORMED PLATELET ESTIMATE (test code = PLTEST) DECREASED PLATELET MORPHOLOGY (test code = PLTMORPH) NORMAL CBC W/AUTO [id number] 05:06:00* Test Item Value Reference Range Interpretation [...] = MDIFF) NO, ONLY SCAN NEEDED DIFFERENTIAL [id number] 05:06:00* Test Item Value Reference Range Interpretation Comments STAIN ACCEPTABILITY (test code = STN ACCEPTABLE) MORPHOLOGY COMMENT (test code = MOC) PLATELET ESTIMATE (test code = PLTEST) PLATELET MORPHOLOGY (test code = PLTMORPH) CBC W/AUTO [id number] 05:00:00* Test Item Value Reference Range Interpretation [...] = MDIFF) NO, ONLY SCAN NEEDED DIFFERENTIAL [id number] 05:00:00* Test Item Value Reference Range Interpretation Comments STAIN ACCEPTABILITY (test code = STN ACCEPTABLE) CABOT RINGS (test code = CAB) MORPHOLOGY COMMENT (test code = MOC) PLATELET ESTIMATE (test code = PLTEST) PLATELET MORPHOLOGY (test code = PLTMORPH) CBC W/AUTO [id number] 05:00:00* Test Item Value Reference Range Interpretation [...] = MDIFF) NO, ONLY SCAN NEEDED DIFFERENTIAL [id number] 05:00:00* Test Item Value Reference Range Interpretation Comments STAIN ACCEPTABILITY (test code = STN ACCEPTABLE) MORPHOLOGY COMMENT (test code = MOC) PLATELET ESTIMATE (test code = PLTEST) PLATELET MORPHOLOGY (test code = PLTMORPH) CBC W/AUTO [id number] 05:00:00* Test Item Value Reference Range Interpretation [...] = MDIFF) NO, ONLY SCAN NEEDED DIFFERENTIAL [id number] 05:00:00* Test Item Value Reference Range Interpretation Comments STAIN ACCEPTABILITY (test code = STN ACCEPTABLE) CABOT RINGS (test code = CAB) MORPHOLOGY COMMENT (test code = MOC) PLATELET ESTIMATE (test code = PLTEST) PLATELET MORPHOLOGY (test code = PLTMORPH) [id number] 20:25:00* Test Item Value Reference Range Interpretation Comments GLUBED (test code = GLUBED) 146 mg/dL 74-106 H Performed by certified first coat operator at [facility] [id number] 15:10:00* Test Item Value Reference Range Interpretation Comments GLUBED (test code = GLUBED) 266 mg/dL 74-106 H Performed by certified first coat operator at [facility] [id number] 11:49:00* Test Item Value Reference Range Interpretation Comments GLUBED (test code = GLUBED) 297 mg/dL 74-106 H Performed by certified first coat operator at [facility] [id number] 07:56:00* Test Item Value Reference Range Interpretation Comments GLUBED (test code = GLUBED) 241 mg/dL 74-106 H Performed by certified first coat operator at [facility] [id number] 20:49:00* Test Item Value Reference Range Interpretation Comments GLUBED (test code = GLUBED) 277 mg/dL 74-106 H [facility] [id number] 16:24:00* Test Item Value Reference Range Interpretation Comments GLUBED (test code = GLUBED) 114 mg/dL 74-106 H Per[facility] by certified first [facility] [id number] 12:12:00* Test Item Value Reference Range Interpretation Comments GLUBED (test code = GLUBED) 229 mg/dL 74-106 H Performed by certified first [facility] operator [facility] [id number] 08:05:00* Test Item Value Reference Range Interpretation Comments GLUBED (test code = GLUBED) 359 mg/dL 74-106 H Per[facility] certified first [facility] CBC W/AUTO [id number] 05:51:00* Test Item Value Reference Range Interpretation [...] = MDIFF) NO, ONLY SCAN NEEDED DIFFERENTIAL [id number] 05:51:00* Test Item Value Reference Range Interpretation [...] (test code = PLTMORPH) NORMAL COMPREHENSIVE METABOLIC [id number] 05:05:00* Test Item Value Reference Range Interpretation [...] due to change in reagent. COMPREHENSIVE METABOLIC [id number] 04:51:00* Test Item Value Reference Range Interpretation [...] code = ALKP) IUnit/L 45-117 CBC W/AUTO [id number] 04:41:00* Test Item Value Reference Range Interpretation [...] = MDIFF) NO, ONLY SCAN NEEDED DIFFERENTIAL [id number] 04:41:00* Test Item Value Reference Range Interpretation Comments STAIN ACCEPTABILITY (test code = STN ACCEPTABLE) CABOT RINGS (test code = CAB) MORPHOLOGY COMMENT (test code = MOC) PLATELET ESTIMATE (test code = PLTEST) PLATELET MORPHOLOGY (test code = PLTMORPH) CBC W/AUTO [id number] 04:41:00* Test Item Value Reference Range Interpretation [...] = MDIFF) NO, ONLY SCAN NEEDED DIFFERENTIAL [id number] 04:41:00* Test Item Value Reference Range Interpretation Comments STAIN ACCEPTABILITY (test code = STN ACCEPTABLE) CABOT RINGS (test code = CAB) MORPHOLOGY COMMENT (test code = MOC) PLATELET ESTIMATE (test code = PLTEST) PLATELET MORPHOLOGY (test code = PLTMORPH) CBC W/AUTO [id number] 04:41:00* Test Item Value Reference Range Interpretation [...] = MDIFF) NO, ONLY SCAN NEEDED DIFFERENTIAL [id number] 04:41:00* Test Item Value Reference Range Interpretation Comments STAIN ACCEPTABILITY (test code = STN ACCEPTABLE) MORPHOLOGY COMMENT (test code = MOC) PLATELET ESTIMATE (test code = PLTEST) PLATELET MORPHOLOGY (test code = PLTMORPH) CBC W/AUTO [id number] 04:41:00* Test Item Value Reference Range Interpretation [...] = MDIFF) NO, ONLY SCAN NEEDED DIFFERENTIAL [id number] 04:41:00* Test Item Value Reference Range Interpretation Comments STAIN ACCEPTABILITY (test code = STN ACCEPTABLE) CABOT RINGS (test code = CAB) MORPHOLOGY COMMENT (test code = MOC) PLATELET ESTIMATE (test code = PLTEST) PLATELET MORPHOLOGY (test code = PLTMORPH) [id number] 20:46:00* Test Item Value Reference Range Interpretation Comments GLUBED (test code = GLUBED) 242 mg/dL 74-106 H Performed by certified first coat operator at [facility] [id number] 16:35:00* Test Item Value Reference Range Interpretation Comments GLUBED (test code = GLUBED) 345 mg/dL 74-106 H Per[facility] certified first [facility] BASIC METABOLIC [id number] 09:05:00* Test Item Value Reference Range Interpretation [...] CA) 8.7 mg/dL 8.5-10.1 N BASIC METABOLIC [id number] 09:00:00* Test Item Value Reference Range Interpretation [...] CALCIUM (test code = CA) mg/dL 8.5-10.1 [id number] 08:20:00* Test Item Value Reference Range Interpretation Comments GLUBED (test code = GLUBED) 349 mg/dL 74-106 H [facility] CBC W/AUTO [id number] 06:48:00* Test Item Value Reference Range Interpretation [...] = MDIFF) NO, ONLY SCAN NEEDED DIFFERENTIAL [id number] 06:48:00* Test Item Value Reference Range Interpretation Comments STAIN ACCEPTABILITY (test code = STN ACCEPTABLE) STAIN ACCEPTABLE POLYCHROMASIA (test code = POLC) 2+ HYPOCHROMIA (test code = HYPO) 1+ ANISOCYTOSIS (test code = ANISO) 2+ MICROCYTOSIS (test code = MICR) 2+ PLATELET ESTIMATE (test code = PLTEST) DECREASED PLATELET MORPHOLOGY (test code = PLTMORPH) NORMAL COMPREHENSIVE METABOLIC [id number] 05:21:00* Test Item Value Reference Range Interpretation [...] due to change in reagent. COMPREHENSIVE METABOLIC [id number] 05:14:00* Test Item Value Reference Range Interpretation [...] code = ALKP) IUnit/L 45-117 CBC W/AUTO [id number] 05:08:00* Test Item Value Reference Range Interpretation [...] = MDIFF) NO, ONLY SCAN NEEDED DIFFERENTIAL [id number] 05:08:00* Test Item Value Reference Range Interpretation Comments STAIN ACCEPTABILITY (test code = STN ACCEPTABLE) CABOT RINGS (test code = CAB) MORPHOLOGY COMMENT (test code = MOC) PLATELET ESTIMATE (test code = PLTEST) PLATELET MORPHOLOGY (test code = PLTMORPH) CBC W/AUTO [id number] 05:08:00* Test Item Value Reference Range Interpretation [...] = MDIFF) NO, ONLY SCAN NEEDED DIFFERENTIAL [id number] 05:08:00* Test Item Value Reference Range Interpretation Comments STAIN ACCEPTABILITY (test code = STN ACCEPTABLE) CABOT RINGS (test code = CAB) MORPHOLOGY COMMENT (test code = MOC) PLATELET ESTIMATE (test code = PLTEST) PLATELET MORPHOLOGY (test code = PLTMORPH) CBC W/AUTO [id number] 05:08:00* Test Item Value Reference Range Interpretation [...] = MDIFF) NO, ONLY SCAN NEEDED DIFFERENTIAL [id number] 05:08:00* Test Item Value Reference Range Interpretation Comments STAIN ACCEPTABILITY (test code = STN ACCEPTABLE) MORPHOLOGY COMMENT (test code = MOC) PLATELET ESTIMATE (test code = PLTEST) PLATELET MORPHOLOGY (test code = PLTMORPH) CBC W/AUTO [id number] 05:08:00* Test Item Value Reference Range Interpretation [...] = MDIFF) NO, ONLY SCAN NEEDED DIFFERENTIAL [id number] 05:08:00* Test Item Value Reference Range Interpretation Comments STAIN ACCEPTABILITY (test code = STN ACCEPTABLE) CABOT RINGS (test code = CAB) MORPHOLOGY COMMENT (test code = MOC) PLATELET ESTIMATE (test code = PLTEST) PLATELET MORPHOLOGY (test code = PLTMORPH) [id number] 20:40:00* Test Item Value Reference Range Interpretation Comments GLUBED (test code = GLUBED) 160 mg/dL 74-106 H Performed by certified first coat operator at [facility] Coronavirus 2019 nCoV [id number] 18:50:00* Test Item Value Reference Range Interpretation Comments Coronavirus 2019 nCoV Bedside (test code = [id number]) Negative [id number] 16:03:00* Test Item Value Reference Range Interpretation Comments GLUBED (test code = GLUBED) 310 mg/dL 74-106 H [facility] [id number] 11:57:00* Test Item Value Reference Range Interpretation Comments GLUBED (test code = GLUBED) 416 mg/dL 74-106 H [facility] [id number] 08:07:00* Test Item Value Reference Range Interpretation Comments GLUBED (test code = GLUBED) 356 mg/dL 74-106 H Per[facility] by certified [facility] BASIC METABOLIC [id number] 04:53:00* Test Item Value Reference Range Interpretation [...] code = CA) 8.5 mg/dL 8.5-10.1 N [id number] 04:53:00* Test Item Value Reference Range Interpretation Comments MAGNESIUM (test code = MAG) 1.9 mg/dL 1.8-2.4 N [id number] 23:55:00* Test Item Value Reference Range Interpretation Comments GLUBED (test code = GLUBED) 391 mg/dL 74-106 H Performed by certified first coat operator at [facility] [id number] 20:25:00* Test Item Value Reference Range Interpretation Comments GLUBED (test code = GLUBED) 452 mg/dL 74-106 H [facility] [id number] 20:15:00* Test Item Value Reference Range Interpretation Comments TROPONIN-I (test code = TROPI) <0.015 ng/mL 0-0.045 N COMMENTS TO DATA RECOVERY PLANNER: COLLECT 3 HOURS AFTER PREVIOUS [id number] 17:14:00* Test Item Value Reference Range Interpretation Comments TROPONIN-I (test code = TROPI) <0.015 ng/mL 0-0.045 N COMMENTS TO DATA RECOVERY PLANNER: COLLECT 3 HOURS AFTER PREVIOUS [id number] 15:52:00* Test Item Value Reference Range Interpretation Comments GLUBED (test code = GLUBED) 90 mg/dL 74-106 N Performed by certified first coat operator at [facility] B-TYPE NATRIURETIC [id number] 10:43:00* Test Item Value Reference Range Interpretation Comments B-TYPE NATRIURETIC PEPTIDE (test code = BNP) 120.97 pgram/mL 0-100 H BASIC METABOLIC [id number] 10:37:00* Test Item Value Reference Range Interpretation [...] code = CA) 8.8 mg/dL 8.5-10.1 N [id number] 10:37:00* Test Item Value Reference Range Interpretation Comments TROPONIN-I (test code = TROPI) <0.015 ng/mL 0-0.045 N PROTHROMBIN [id number] 10:25:00* Test Item Value Reference Range Interpretation [...] (2.5-3.5) IS PATIENT ON ANTICOAGULANTS? NTHROMBOPLASTIN TIME [id number] 10:25:00* Test Item Value Reference Range Interpretation Comments THROMBOPLASTIN TIME PARTIAL (test code = PTT) 22.9 seconds 23.0-37. 0 L IS PATIENT ON ANTICOAGULANTS? NBASIC METABOLIC [id number] 10:22:00* Test Item Value Reference Range Interpretation [...] CALCIUM (test code = CA) mg/dL 8.5-10.1 [id number] 10:22:00* Test Item Value Reference Range Interpretation Comments TROPONIN-I (test code = TROPI) ng/mL 0-0.045 CBC W/O [id number] 10:15:00* Test Item Value Reference Range Interpretation [...] fL 6.7-11.0 N - XR CHEST 1 [id number] 10:04:00 FAX: Hardeep Douglas [phone] [place]: B St: [facility] FAX: Benjamin Francis MD [phone] Name: KALYANI TALAVERA [facility] : 1955 Age/S: 64/F [address] [facility] Unit #: [id number] Loc: [place] [address] Phys: Hardeep Ann MD Acct: [id number] Dis Date: Status: REG ER PHONE #: [phone] Exam Date: 11/20/2019928 FAX #: [phone] Reason: Shortness of Breath EXAMS: CPT CODE: [id number] XR CHEST 1 V 43886 REASON FOR EXAM: Shortness of Breath Exam [...] chronic elevation of the right hemidiaphragm. Location: [facility] at 1004 Reported and signed by: Dago Goodson MD CC: Hardeep Ann MD; Benjamin Masters Technologist: SUSAN HAMMONDS JR Trnscrd Date/Time/By: 0 (1004) : By: [email or web address] Orig Print D/T: S: 11/20/2019 (1007) PAGE 1 Signed Report BASIC METABOLIC [id number] 15:36:00* Test Item Value Reference Range Interpretation [...] CA) 8.5 mg/dL 8.5-10.1 N BASIC METABOLIC [id number] 15:32:00* Test Item Value Reference Range Interpretation [...] CALCIUM (test code = CA) mg/dL 8.5-10.1 [id number] 11:56:00* Test Item Value Reference Range Interpretation Comments GLUBED (test code = GLUBED) 268 mg/dL 74-106 H Performed by certified first coat operator at [facility] [id number] 08:34:00* Test Item Value Reference Range Interpretation Comments GLUBED (test code = GLUBED) 213 mg/dL 74-106 H Performed by certified first coat operator at [facility] COMPREHENSIVE METABOLIC [id number] 06:54:00* Test Item Value Reference Range Interpretation [...] due to change in reagent. COMPREHENSIVE METABOLIC [id number] 06:39:00* Test Item Value Reference Range Interpretation [...] TOTAL (test code = ALKP) IUnit/L 45-117 [id number] 19:31:00* Test Item Value Reference Range Interpretation Comments GLUBED (test code = GLUBED) 307 mg/dL 74-106 H Performed by certified first coat operator at [facility] BASIC METABOLIC [id number] 16:35:00* Test Item Value Reference Range Interpretation [...] CA) 8.9 mg/dL 8.5-10.1 N BASIC METABOLIC [id number] 16:30:00* Test Item Value Reference Range Interpretation [...] CALCIUM (test code = CA) mg/dL 8.5-10.1 [id number] 15:31:00* Test Item Value Reference Range Interpretation Comments GLUBED (test code = GLUBED) 155 mg/dL 74-106 H Performed by certified first coat operator at [facility] [id number] 11:44:00* Test Item Value Reference Range Interpretation Comments GLUBED (test code = GLUBED) 180 mg/dL 74-106 H Performed by certified first coat operator at [facility] [id number] 08:05:00* Test Item Value Reference Range Interpretation Comments GLUBED (test code = GLUBED) 236 mg/dL 74-106 H Performed by certified first coat operator at [facility] COMPREHENSIVE METABOLIC [id number] 04:48:00* Test Item Value Reference Range Interpretation [...] due to change in reagent. COMPREHENSIVE METABOLIC [id number] 04:35:00* Test Item Value Reference Range Interpretation [...] TOTAL (test code = ALKP) IUnit/L 45-117 [id number] 20:09:00* Test Item Value Reference Range Interpretation Comments GLUBED (test code = GLUBED) 126 mg/dL 74-106 H Performed by certified first coat operator at [facility] [id number] 15:38:00* Test Item Value Reference Range Interpretation Comments GLUBED (test code = GLUBED) 241 mg/dL 74-106 H Performed by certified first coat operator at [facility] [id number] 11:39:00* Test Item Value Reference Range Interpretation Comments GLUBED (test code = GLUBED) 406 mg/dL 74-106 H Performed by certified first coat operator at [facility] [id number] 07:56:00* Test Item Value Reference Range Interpretation Comments GLUBED (test code = GLUBED) 318 mg/dL 74-106 H Performed by certified first coat operator at [facility] COMPREHENSIVE METABOLIC [id number] 04:33:00* Test Item Value Reference Range Interpretation [...] due to change in reagent. COMPREHENSIVE METABOLIC [id number] 04:24:00* Test Item Value Reference Range Interpretation [...] TOTAL (test code = ALKP) IUnit/L 45-117 [id number] 22:02:00* Test Item Value Reference Range Interpretation Comments GLUBED (test code = GLUBED) 108 mg/dL 74-106 H Performed by certified first coat operator at [facility] [id number] 19:58:00* Test Item Value Reference Range Interpretation Comments GLUBED (test code = GLUBED) 117 mg/dL 74-106 H Performed by certified first coat operator at [facility] [id number] 11:46:00* Test Item Value Reference Range Interpretation Comments GLUBED (test code = GLUBED) 277 mg/dL 74-106 H Performed by certified first coat operator at [facility] [id number] 11:46:00* Test Item Value Reference Range Interpretation Comments GLUBED (test code = GLUBED) 286 mg/dL 74-106 H Performed by certified first coat operator at [facility] [id number] 04:37:00* Test Item Value Reference Range Interpretation Comments FERRITIN (test code = DESI) 14 ng/mL 8-388 N FE W/TOTAL IRON BINDING CAP.2019-10-21 04:28:00* Test Item Value Reference Range Interpretation Comments SERUM IRON (test code = IRON) 65 ug/dL 50-175 N TOTAL IRON BINDING CAPACITY (test code = TIBC) 532 mcg/dL 250-450 H IRON SATURATION (test code = FESAT) 12.22 % 13-45 L [id number] 03:52:00* Test Item Value Reference Range Interpretation Comments GLUBED (test code = GLUBED) 287 mg/dL 74-106 H [facility] [id number] 20:27:00* Test Item Value Reference Range Interpretation Comments GLUBED (test code = GLUBED) 132 mg/dL 74-106 H Performed by certified first coat operator [facility] [id number] 17:34:00* Test Item Value Reference Range Interpretation Comments GLUBED (test code = GLUBED) 167 mg/dL 74-106 H Performed by certified first coat operator at [facility] [id number] 12:06:00* Test Item Value Reference Range Interpretation Comments GLUBED (test code = GLUBED) 271 mg/dL 74-106 H Performed by certified first coat operator at [facility] - XR CHEST 1 [id number] 08:35:00 FAX: Taz Mccormick MD [phone] [place]: St: ADM FAX: Benjamin Francis MD [phone] Name: KALYANI TALAVERA [facility] : 1955 Age/S: 64/F [address] [facility] Unit #: [id number] Loc: V.[address] [place] [address] Phys: Taz Bravo MD Acct: [id number] Dis Date: Status: ADM IN PHONE #: [phone] Exam Date: 10/20/2019 08 FAX #: [phone] Reason: chf EXAMS: CPT CODE: [id number] XR CHEST 1 V 29579 CLINICAL HISTORY: chf TECHNIQUE: AP chest x-ray COMPARISON: 10/18/19 IMPRESSION: No significant interval change. Low lung volumes with bibasilar subsegmental atelectasis. No airspace consolidation or pleural effusion. Elevated right hemidiaphragm. Cardiomegaly. Mediastinal silhouette is unremarkable. LOCATION: [facility] c[facility] Signed by Kary Camacho D.O. on 10/20/2019 at 0835 Reported and signed by: Kary Camacho D.O. CC: Taz Bravo MD; Benjamin Masters Technologist: TAWANNA HURTADO RT(R) Trnscrd Date/Time/By: 10/20/2019 (0879) : By: aniyah [email or web address] Orig Print D/T: S: 10/20/2019 (9781) P AGE 2 Signed Report GLUBED 2019-10-20 08:30:00* Test Item Value Reference Range Interpretation Comments GLUBED (test code = GLUBED) 234 mg/dL 74-106 H Performed by certified first coat operator at [facility] CBC W/AUTO [id number] 05:46:00* Test Item Value Reference Range Interpretation [...] = MDIFF) NO, ONLY SCAN NEEDED DIFFERENTIAL [id number] 05:46:00* Test Item Value Reference Range Interpretation [...] (test code = PLTMORPH) NORMAL BASIC METABOLIC [id number] 05:36:00* Test Item Value Reference Range Interpretation [...] CA) 9.4 mg/dL 8.5-10.1 N BASIC METABOLIC [id number] 05:30:00* Test Item Value Reference Range Interpretation [...] code = CA) mg/dL 8.5-10.1 CBC W/AUTO [id number] 05:11:00* Test Item Value Reference Range Interpretation [...] = MDIFF) NO, ONLY SCAN NEEDED DIFFERENTIAL [id number] 05:11:00* Test Item Value Reference Range Interpretation Comments STAIN ACCEPTABILITY (test code = STN ACCEPTABLE) CABOT RINGS (test code = CAB) MORPHOLOGY COMMENT (test code = MOC) PLATELET ESTIMATE (test code = PLTEST) PLATELET MORPHOLOGY (test code = PLTMORPH) CBC W/AUTO [id number] 05:11:00* Test Item Value Reference Range Interpretation [...] = MDIFF) NO, ONLY SCAN NEEDED DIFFERENTIAL [id number] 05:11:00* Test Item Value Reference Range Interpretation Comments STAIN ACCEPTABILITY (test code = STN ACCEPTABLE) CABOT RINGS (test code = CAB) MORPHOLOGY COMMENT (test code = MOC) PLATELET ESTIMATE (test code = PLTEST) PLATELET MORPHOLOGY (test code = PLTMORPH) CBC W/AUTO [id number] 05:11:00* Test Item Value Reference Range Interpretation [...] = MDIFF) NO, ONLY SCAN NEEDED DIFFERENTIAL [id number] 05:11:00* Test Item Value Reference Range Interpretation Comments STAIN ACCEPTABILITY (test code = STN ACCEPTABLE) MORPHOLOGY COMMENT (test code = MOC) PLATELET ESTIMATE (test code = PLTEST) PLATELET MORPHOLOGY (test code = PLTMORPH) CBC W/AUTO [id number] 05:11:00* Test Item Value Reference Range Interpretation [...] = MDIFF) NO, ONLY SCAN NEEDED DIFFERENTIAL [id number] 05:11:00* Test Item Value Reference Range Interpretation Comments STAIN ACCEPTABILITY (test code = STN ACCEPTABLE) CABOT RINGS (test code = CAB) MORPHOLOGY COMMENT (test code = MOC) PLATELET ESTIMATE (test code = PLTEST) PLATELET MORPHOLOGY (test code = PLTMORPH) [id number] 19:55:00* Test Item Value Reference Range Interpretation Comments GLUBED (test code = GLUBED) 245 mg/dL 74-106 H Performed by certified first coat operator at [facility] [id number] 17:25:00* Test Item Value Reference Range Interpretation Comments GLUBED (test code = GLUBED) 316 mg/dL 74-106 H Performed by certified first coat operator at [facility] [id number] 12:03:00* Test Item Value Reference Range Interpretation Comments GLUBED (test code = GLUBED) 266 mg/dL 74-106 H Performed by certified first coat operator at [facility] [id number] 11:55:00* Test Item Value Reference Range Interpretation Comments GLUBED (test code = GLUBED) 300 mg/dL 74-106 H Performed by certified first coat operator at [facility] COMPREHENSIVE METABOLIC [id number] 04:36:00* Test Item Value Reference Range Interpretation [...] due to change in reagent. COMPREHENSIVE METABOLIC [id number] 04:25:00* Test Item Value Reference Range Interpretation [...] TOTAL (test code = ALKP) IUnit/L 45-117 [id number] 20:30:00* Test Item Value Reference Range Interpretation Comments GLUBED (test code = GLUBED) 202 mg/dL 74-106 H [facility] certified [facility] [id number] 18:41:00* Test Item Value Reference Range Interpretation Comments GLUBED (test code = GLUBED) 229 mg/dL 74-106 H Performed by certified first coat operator at [facility] [id number] 15:56:00* Test Item Value Reference Range Interpretation Comments GLUBED (test code = GLUBED) 271 mg/dL 74-106 H Performed by certified first coat operator at [facility] [id number] 15:00:00* Test Item Value Reference Range Interpretation Comments GLYCOSYLATED HEMOGLOBIN (HA1C) (test code = GLYHGB) 9.6 % HbA1 SUGGESTED DIAGNOSIS: HbA1C (%) Diabetic >6.4Prediabetes 5.7 - 6.4Normal <5.7 ESTIMATED AVERAGE GLUCOSE (test code = EAG) 229 MG/DL [id number] 11:26:00* Test Item Value Reference Range Interpretation Comments GLUBED (test code = GLUBED) 372 mg/dL 74-106 H Performed by certified first coat operator at [facility] - XR CHEST 1 [id number] 08:31:00 FAX: Taz Mccormick MD [phone] [place]: St: [facility] FAX: Benjamin Francis MD [phone] Name: KALYANI TALAVERA [facility] : 1955 Age/S: 64/F [address] Unit #: [id number] Loc: V.[address] [place] [address] Phys: Taz Bravo MD Acct: [id number] Dis Date: Status: ADM IN PHONE #: [phone] Exam Date: 10/18/2019 0801 FAX #: [phone] Reason: chf EXAMS: CPT CODE: [id number] XR CHEST 1 V 24724 REASON FOR EXAM: chf Exam Order Date: 10/18/2019 5:00 AM Ordering M.Ivelisse: Taz Bravo MD PROCEDURE: - XR CHEST 1 V [...] limits. IMPRESSION: No acute cardiopulmonary process. Location: [facility] Electronic ally Signed by Dago Goodson MD on 10/18/2019 at 0831 Repo rted and signed by: Dago Goodson MD CC: Taz Bravo MD; Benjamin Masters Technologist: SUSAN HAMMONDS JR Trnscrd Date/Time/By: 10/18/2019 (0831) : By: [email or web address] Orig Print D/T: S: 10/18/2019 (0834) PAGE 1 Signed Report [id number] 07:40:00 * Test Item Value Reference Range Interpretation Comments GLUBED (test code = GLUBED) 391 mg/dL 74-106 H Performed by certified first coat operator at [facility] COMPREHENSIVE METABOLIC [id number] 04:54:00* Test Item Value Reference Range Interpretation [...] reference range due to change in reagent. [id number] 04:54:00* Test Item Value Reference Range Interpretation Comments MAGNESIUM (test code = MAG) 1.8 mg/dL 1.8-2.4 N COMPREHENSIVE METABOLIC [id number] 04:45:00* Test Item Value Reference Range Interpretation [...] TOTAL (test code = ALKP) IUnit/L 45-117 [id number] 04:45:00* Test Item Value Reference Range Interpretation Comments MAGNESIUM (test code = MAG) mg/dL 1.8-2.4 CBC W/AUTO [id number] 04:28:00* Test Item Value Reference Range Interpretation [...] code = NRBC#) 0.00 K/mm3 0.0-0.1 N [id number] 23:49:00* Test Item Value Reference Range Interpretation Comments TROPONIN-I (test code = TROPI) 0.024 ng/mL 0-0.045 N COMMENTS TO DATA RECOVERY PLANNER: COLLECT 3 HOURS AFTER PREVIOUS [id number] 20:30:00* Test Item Value Reference Range Interpretation Comments GLUBED (test code = GLUBED) 288 mg/dL 74-106 H Performed by certified first coat operator at [facility] [id number] 19:35:00* Test Item Value Reference Range Interpretation Comments TROPONIN-I (test code = TROPI) 0.027 ng/mL 0-0.045 N COMMENTS TO DATA RECOVERY PLANNER: COLLECT 3 HOURS AFTER PREVIOUS SAMPLE- CT CHEST W/O [id number] 18:12:00 Name: KALYANI TALAVERA [facility] : 1955 Age/S: 64 / F [address] Unit #: [id number] Loc: [place] [address] Phys: Pravin Christianson MD Acct: [id number] Dis Date: Status: ADM IN PHONE #: [phone] Exam Date: 10/17/2019 1800 FAX #: [phone] Reason: Dyspnea, Crackles in bases EXAMS: CPT CODE: [id number] CT CHEST W/O CONTRAST 49635 HISTORY: Dyspnea and crackles in the base. [...] 10/17/2019 (1811) t.SDR.TH4 PAGE 1 Signed Report [id number] 17:25:00* Test Item Value Reference Range Interpretation Comments MAGNESIUM (test code = MAG) 1.8 mg/dL 1.8-2.4 N [id number] 16:20:00* Test Item Value Reference Range Interpretation Comments GLUBED (test code = GLUBED) 221 mg/dL 74-106 H Performed by certified first coat operator at [facility] B-TYPE NATRIURETIC [id number] 10:56:00* Test Item Value Reference Range Interpretation Comments B-TYPE NATRIURETIC PEPTIDE (test code = BNP) 58.67 pgram/mL 0-100 N BASIC METABOLIC [id number] 10:25:00* Test Item Value Reference Range Interpretation [...] code = CA) 8.6 mg/dL 8.5-10.1 N [id number] 10:25:00* Test Item Value Reference Range Interpretation Comments TROPONIN-I (test code = TROPI) 0.025 ng/mL 0-0.045 N BASIC METABOLIC [id number] 10:15:00* Test Item Value Reference Range Interpretation [...] CALCIUM (test code = CA) mg/dL 8.5-10.1 [id number] 10:15:00* Test Item Value Reference Range Interpretation Comments TROPONIN-I (test code = TROPI) ng/mL 0-0.045 CBC W/O [id number] 09:54:00* Test Item Value Reference Range Interpretation [...] fL 6.7-11.0 N - XR CHEST 1 [id number] 09:54:00 FAX: Patel Kulkarni MD [place]: B St: PRE FAX: Benjamin Francis MD [phone] Name: KALYANI TALAVERA [facility] : 1955 Age/S: 64/F [address] [facility] Unit #: [id number] Loc: [place] [address] Phys: Patel Kulkarni MD Acct: [id number] Dis Date: Status: PRE ER PHONE #: [phone] Exam Date: 10/17/2019 0946 FAX #: [phone] Reason: Shortness of Breath EXAMS: CPT CODE: [id number] XR CHEST 1 V 34004 CLINICAL HISTORY: Shortness of Breath TECHNIQUE: AP [...] By: [email or web address] Orig Print D/T: S: 10/17/2019 (0983) PAGE 1 Signed Report [id number] 15:30:00* Test Item Value Reference Range Interpretation Comments GLUBED (test code = GLUBED) 138 mg/dL 74-106 H Performed by certified first coat operator at [facility] COMPREHENSIVE METABOLIC [id number] 14:28:00* Test Item Value Reference Range Interpretation [...] due to change in reagent. COMPREHENSIVE METABOLIC [id number] 14:18:00* Test Item Value Reference Range Interpretation [...] code = ALKP) IUnit/L 45-117 CBC W/AUTO [id number] 13:43:00* Test Item Value Reference Range Interpretation [...] NRBC#) 0.02 K/mm3 0.0-0.1 N CBC W/AUTO [id number] 13:37:00* Test Item Value Reference Range Interpretation [...] # (test code = BA#) K/mm3 0.0-0.2 [id number] 12:24:00* Test Item Value Reference Range Interpretation Comments GLUBED (test code = GLUBED) 142 mg/dL 74-106 H Performed by certified first coat operator at [facility] [id number] 07:57:00* Test Item Value Reference Range Interpretation Comments GLUBED (test code = GLUBED) 221 mg/dL 74-106 H Performed by certified first coat operator at [facility] - XR CHEST 1 [id number] 21:23:00 FAX: Alfa Moscoso MD [phone] [place]: B St: ADM FAX: Benjamin Francis MD [phone] Name: KALYANI TALAVERA [facility] : 1955 Age/S: 64/F [address] Unit #: [id number] Loc: V.[address] [place] [address] Phys: Alfa Cassidy MD Acct: [id number] Dis Date: Status: ADM IN PHONE #: [phone] Exam Date: 09/07/20192048 FAX #: [phone] Reason: ACUTE CHF EXAMS: CPT CODE: [id number] XR CHEST 1 V 30065 CLINICAL HISTORY: ACUTE CHF TECHNIQUE: AP chest [...] S: 09/07/2019 (2125) PAGE 1 Signed Report [id number] 20:44:00* Test Item Value Reference Range Interpretation Comments GLUBED (test code = GLUBED) 176 mg/dL 74-106 H Performed by certified first coat operator at [facility] CBC W/AUTO [id number] 17:54:00* Test Item Value Reference Range Interpretation [...] = MDIFF) NO, ONLY SCAN NEEDED DIFFERENTIAL [id number] 17:54:00* Test Item Value Reference Range Interpretation Comments STAIN ACCEPTABILITY (test code = STN ACCEPTABLE) STAIN ACCEPTABLE ANISOCYTOSIS (test code = ANISO) 1+ PLATELET ESTIMATE (test code = PLTEST) DECREASED PLATELET MORPHOLOGY (test code = PLTMORPH) NORMAL COMPREHENSIVE METABOLIC [id number] 17:01:00* Test Item Value Reference Range Interpretation [...] reference range due to change in reagent. [id number] 17:00:00* Test Item Value Reference Range Interpretation Comments GLUBED (test code = GLUBED) 270 mg/dL 74-106 H Performed by certified first coat operator at [facility] B-TYPE NATRIURETIC [id number] 17:00:00* Test Item Value Reference Range Interpretation Comments B-TYPE NATRIURETIC PEPTIDE (test code = BNP) 33.15 pgram/mL 0-100 N CBC W/AUTO [id number] 16:55:00* Test Item Value Reference Range Interpretation [...] = MDIFF) NO, ONLY SCAN NEEDED DIFFERENTIAL [id number] 16:55:00* Test Item Value Reference Range Interpretation Comments STAIN ACCEPTABILITY (test code = STN ACCEPTABLE) CABOT RINGS (test code = CAB) MORPHOLOGY COMMENT (test code = MOC) PLATELET ESTIMATE (test code = PLTEST) PLATELET MORPHOLOGY (test code = PLTMORPH) CBC W/AUTO [id number] 16:55:00* Test Item Value Reference Range Interpretation [...] = MDIFF) NO, ONLY SCAN NEEDED DIFFERENTIAL [id number] 16:55:00* Test Item Value Reference Range Interpretation Comments STAIN ACCEPTABILITY (test code = STN ACCEPTABLE) CABOT RINGS (test code = CAB) MORPHOLOGY COMMENT (test code = MOC) PLATELET ESTIMATE (test code = PLTEST) PLATELET MORPHOLOGY (test code = PLTMORPH) CBC W/AUTO [id number] 16:55:00* Test Item Value Reference Range Interpretation [...] = MDIFF) NO, ONLY SCAN NEEDED DIFFERENTIAL [id number] 16:55:00* Test Item Value Reference Range Interpretation Comments STAIN ACCEPTABILITY (test code = STN ACCEPTABLE) MORPHOLOGY COMMENT (test code = MOC) PLATELET ESTIMATE (test code = PLTEST) PLATELET MORPHOLOGY (test code = PLTMORPH) CBC W/AUTO [id number] 16:55:00* Test Item Value Reference Range Interpretation [...] = MDIFF) NO, ONLY SCAN NEEDED DIFFERENTIAL [id number] 16:55:00* Test Item Value Reference Range Interpretation Comments STAIN ACCEPTABILITY (test code = STN ACCEPTABLE) CABOT RINGS (test code = CAB) MORPHOLOGY COMMENT (test code = MOC) PLATELET ESTIMATE (test code = PLTEST) PLATELET MORPHOLOGY (test code = PLTMORPH) CBC W/AUTO [id number] 16:49:00* Test Item Value Reference Range Interpretation [...] code = BA#) K/mm3 0.0-0.2 COMPREHENSIVE METABOLIC [id number] 16:49:00* Test Item Value Reference Range Interpretation [...] TOTAL (test code = ALKP) IUnit/L 45-117 [id number] 12:09:00* Test Item Value Reference Range Interpretation Comments GLUBED (test code = GLUBED) 219 mg/dL 74-106 H Performed by certified first coat operator at [facility] [id number] 08:21:00* Test Item Value Reference Range Interpretation Comments GLUBED (test code = GLUBED) 249 mg/dL 74-106 H Performed by certified first coat operator at [facility] BASIC METABOLIC [id number] 06:22:00* Test Item Value Reference Range Interpretation [...] code = CA) 8.6 mg/dL 8.5-10.1 N [id number] 20:04:00* Test Item Value Reference Range Interpretation Comments GLUBED (test code = GLUBED) 282 mg/dL 74-106 H Performed by certified first coat operator at [facility] [id number] 17:10:00* Test Item Value Reference Range Interpretation Comments GLUBED (test code = GLUBED) 210 mg/dL 74-106 H Performed by certified first coat operator at [facility] [id number] 11:31:00* Test Item Value Reference Range Interpretation Comments GLUBED (test code = GLUBED) 179 mg/dL 74-106 H Performed by certified first coat operator at [facility] BASIC METABOLIC [id number] 09:04:00* Test Item Value Reference Range Interpretation [...] CA) 8.7 mg/dL 8.5-10.1 N BASIC METABOLIC [id number] 08:59:00* Test Item Value Reference Range Interpretation [...] CALCIUM (test code = CA) mg/dL 8.5-10.1 [id number] 08:24:00* Test Item Value Reference Range Interpretation Comments GLUBED (test code = GLUBED) 201 mg/dL 74-106 H Performed by certified first coat operator at [facility] [id number] 21:07:00* Test Item Value Reference Range Interpretation Comments GLUBED (test code = GLUBED) 185 mg/dL 74-106 H Performed by certified first coat operator at [facility] [id number] 20:21:00* Test Item Value Reference Range Interpretation Comments GLUBED (test code = GLUBED) 168 mg/dL 74-106 H Performed by certified first coat operator at [facility] [id number] 17:21:00* Test Item Value Reference Range Interpretation Comments GLUBED (test code = GLUBED) 104 mg/dL 74-106 N Performed by certified first coat operator at [facility] [id number] 11:54:00* Test Item Value Reference Range Interpretation Comments GLUBED (test code = GLUBED) 207 mg/dL 74-106 H Performed by certified first coat operator at [facility] [id number] 10:26:00* Test Item Value Reference Range Interpretation Comments GLUBED (test code = GLUBED) 266 mg/dL 74-106 H Performed by certified first coat operator at [facility] BASIC METABOLIC [id number] 08:10:00* Test Item Value Reference Range Interpretation [...] CA) 8.5 mg/dL 8.5-10.1 N BASIC METABOLIC [id number] 08:01:00* Test Item Value Reference Range Interpretation [...] CALCIUM (test code = CA) mg/dL 8.5-10.1 [id number] 20:13:00* Test Item Value Reference Range Interpretation Comments GLUBED (test code = GLUBED) 280 mg/dL 74-106 H Performed by certified first coat operator at [facility] URINALYSIS [id number] 18:55:00* Test Item Value Reference Range Interpretation [...] #/LPF FEW BY V.LAB.THSPECIMEN COMMENTS: urineUrine Source? [id number] 16:55:00* Test Item Value Reference Range Interpretation Comments GLUBED (test code = GLUBED) 151 mg/dL 74-106 H Performed by certified first coat operator at [facility] [id number] 15:39:00* Test Item Value Reference Range Interpretation Comments GLUBED (test code = GLUBED) 264 mg/dL 74-106 H Performed by certified first coat operator at [facility] CBC W/AUTO [id number] 11:09:00* Test Item Value Reference Range Interpretation [...] = MDIFF) NO, ONLY SCAN NEEDED DIFFERENTIAL [id number] 11:09:00* Test Item Value Reference Range Interpretation Comments STAIN ACCEPTABILITY (test code = STN ACCEPTABLE) STAIN ACCEPTABLE HYPOCHROMIA (test code = HYPO) 1+ ANISOCYTOSIS (test code = ANISO) 1+ PLATELET ESTIMATE (test code = PLTEST) SLIGHTLY DECREASED PLATELET MORPHOLOGY (test code = PLTMORPH) NORMAL CBC W/AUTO [id number] 10:19:00* Test Item Value Reference Range Interpretation [...] = MDIFF) NO, ONLY SCAN NEEDED DIFFERENTIAL [id number] 10:19:00* Test Item Value Reference Range Interpretation Comments STAIN ACCEPTABILITY (test code = STN ACCEPTABLE) MORPHOLOGY COMMENT (test code = MOC) PLATELET ESTIMATE (test code = PLTEST) PLATELET MORPHOLOGY (test code = PLTMORPH) CBC W/AUTO [id number] 10:15:00* Test Item Value Reference Range Interpretation [...] = MDIFF) NO, ONLY SCAN NEEDED DIFFERENTIAL [id number] 10:15:00* Test Item Value Reference Range Interpretation Comments STAIN ACCEPTABILITY (test code = STN ACCEPTABLE) CABOT RINGS (test code = CAB) MORPHOLOGY COMMENT (test code = MOC) PLATELET ESTIMATE (test code = PLTEST) PLATELET MORPHOLOGY (test code = PLTMORPH) CBC W/AUTO [id number] 10:15:00* Test Item Value Reference Range Interpretation [...] = MDIFF) NO, ONLY SCAN NEEDED DIFFERENTIAL [id number] 10:15:00* Test Item Value Reference Range Interpretation Comments STAIN ACCEPTABILITY (test code = STN ACCEPTABLE) MORPHOLOGY COMMENT (test code = MOC) PLATELET ESTIMATE (test code = PLTEST) PLATELET MORPHOLOGY (test code = PLTMORPH) CBC W/AUTO [id number] 10:15:00* Test Item Value Reference Range Interpretation [...] = MDIFF) NO, ONLY SCAN NEEDED DIFFERENTIAL [id number] 10:15:00* Test Item Value Reference Range Interpretation Comments STAIN ACCEPTABILITY (test code = STN ACCEPTABLE) CABOT RINGS (test code = CAB) MORPHOLOGY COMMENT (test code = MOC) PLATELET ESTIMATE (test code = PLTEST) PLATELET MORPHOLOGY (test code = PLTMORPH) CBC W/AUTO [id number] 10:00:00* Test Item Value Reference Range Interpretation [...] # (test code = BA#) K/mm3 0.0-0.2 [id number] 08:44:00* Test Item Value Reference Range Interpretation Comments GLUBED (test code = GLUBED) 305 mg/dL 74-106 H Performed by certified first coat operator at [facility] BASIC METABOLIC [id number] 08:31:00* Test Item Value Reference Range Interpretation [...] code = CA) 8.0 mg/dL 8.5-10.1 L [id number] 20:37:00* Test Item Value Reference Range Interpretation Comments GLUBED (test code = GLUBED) 200 mg/dL 74-106 H Performed by certified first coat operator at [facility] - XR CHEST 1 [id number] 18:15:00 FAX: Benjamin Francis MD [phone] Ashley: St: ADM Name: KALYANI CATES [facility] : [birth year] Age/S: 64/F [address] [facility] Unit #: [id number] Loc: [address] [address] Phys: Benjamin Masters MD Acct: [id number] Dis Date: Status: ADM IN PHONE #: [phone] Exam Date: 09/03/2019 1615 FAX #: [phone] Reason: CHF EXAMS: CPT CODE: [id number] XR CHEST 1 V 54146 EXAM: Chest x-ray, one view; INFORMATION: CHF, hypoglycemia; IMPRESSION: 1. Mild cardiomegaly; otherwise, no evidence of active cardiopulmonary disease. 2. No significant change compared with a study from August 28, 2019. Location code: [facility] at 1815 Reported and signed by: Jc Bravo M.D. CC: Benjamin Masters Technologist: WENDIE COMER RT(R); Jacquie CLEMENTS(R) Trnscrd Date/Time/By: 09/03/2019 (1814) : By: Dannielle Orig Print D/T: S: 09/03/2019 (1817) PAGE 1 Signed Report [id number] 17:28:00* Test Item Value Reference Range Interpretation Comments GLUBED (test code = GLUBED) 103 mg/dL 74-106 N Performed by certified first coat operator at [facility] [id number] 12:43:00* Test Item Value Reference Range Interpretation Comments GLUBED (test code = GLUBED) 201 mg/dL 74-106 H Performed by certified first coat operator at [facility] B-TYPE NATRIURETIC [id number] 12:25:00* Test Item Value Reference Range Interpretation Comments B-TYPE NATRIURETIC PEPTIDE (test code = BNP) 20.62 pgram/mL 0-100 N SPECIMEN COMMENTS: add to AM labsBASIC METABOLIC [id number] 09:49:00* Test Item Value Reference Range Interpretation [...] code = CA) 8.3 mg/dL 8.5-10.1 L [id number] 08:23:00* Test Item Value Reference Range Interpretation Comments GLUBED (test code = GLUBED) 242 mg/dL 74-106 H Performed by certified first coat operator at [facility] [id number] 20:51:00* Test Item Value Reference Range Interpretation Comments GLUBED (test code = GLUBED) 155 mg/dL 74-106 H Performed by certified first coat operator at [facility] [id number] 16:25:00* Test Item Value Reference Range Interpretation Comments GLUBED (test code = GLUBED) 245 mg/dL 74-106 H Performed by certified first coat operator at [facility] [id number] 14:55:00* Test Item Value Reference Range Interpretation Comments MAGNESIUM (test code = MAG) 1.8 mg/dL 1.8-2.4 N COMPREHENSIVE METABOLIC [id number] 13:39:00* Test Item Value Reference Range Interpretation [...] due to change in reagent. COMPREHENSIVE METABOLIC [id number] 13:31:00* Test Item Value Reference Range Interpretation [...] code = ALKP) IUnit/L 45-117 CBC W/AUTO [id number] 12:41:00* Test Item Value Reference Range Interpretation [...] NRBC#) 0.00 K/mm3 0.0-0.1 N CBC W/AUTO [id number] 12:32:00* Test Item Value Reference Range Interpretation [...] # (test code = BA#) K/mm3 0.0-0.2 [id number] 11:40:00* Test Item Value Reference Range Interpretation Comments GLUBED (test code = GLUBED) 252 mg/dL 74-106 H Performed by certified first coat operator at [facility] [id number] 08:02:00* Test Item Value Reference Range Interpretation Comments GLUBED (test code = GLUBED) 252 mg/dL 74-106 H Performed by certified first coat operator at [facility] [id number] 20:04:00* Test Item Value Reference Range Interpretation Comments GLUBED (test code = GLUBED) 183 mg/dL 74-106 H Performed by certified first coat operator at [facility] [id number] 18:42:00* Test Item Value Reference Range Interpretation Comments GLUBED (test code = GLUBED) 218 mg/dL 74-106 H Performed by certified first coat operator at [facility] [id number] 12:24:00* Test Item Value Reference Range Interpretation Comments GLUBED (test code = GLUBED) 281 mg/dL 74-106 H Performed by certified first coat operator at [facility] [id number] 08:29:00* Test Item Value Reference Range Interpretation Comments GLUBED (test code = GLUBED) 293 mg/dL 74-106 H Performed by certified first coat operator at [facility] [id number] 20:21:00* Test Item Value Reference Range Interpretation Comments GLUBED (test code = GLUBED) 236 mg/dL 74-106 H Performed by certified first coat operator at [facility] [id number] 17:17:00* Test Item Value Reference Range Interpretation Comments GLUBED (test code = GLUBED) 311 mg/dL 74-106 H Performed by certified first coat operator at [facility] [id number] 12:22:00* Test Item Value Reference Range Interpretation Comments GLUBED (test code = GLUBED) 230 mg/dL 74-106 H Performed by certified first coat operator at [facility] [id number] 08:34:00* Test Item Value Reference Range Interpretation Comments GLUBED (test code = GLUBED) 301 mg/dL 74-106 H Performed by certified first coat operator at [facility] BASIC METABOLIC [id number] 06:15:00* Test Item Value Reference Range Interpretation [...] CA) 8.6 mg/dL 8.5-10.1 N BASIC METABOLIC [id number] 06:12:00* Test Item Value Reference Range Interpretation [...] code = CA) 8.6 mg/dL 8.5-10.1 N [id number] 20:44:00* Test Item Value Reference Range Interpretation Comments GLUBED (test code = GLUBED) 304 mg/dL 74-106 H Performed by certified first coat operator at [facility] [id number] 17:42:00* Test Item Value Reference Range Interpretation Comments MAGNESIUM (test code = MAG) 1.8 mg/dL 1.8-2.4 N [id number] 17:25:00* Test Item Value Reference Range Interpretation Comments GLUBED (test code = GLUBED) 196 mg/dL 74-106 H Performed by certified first coat operator at [facility] [id number] 12:10:00* Test Item Value Reference Range Interpretation Comments GLUBED (test code = GLUBED) 223 mg/dL 74-106 H Performed by certified first coat operator at [facility] BASIC METABOLIC [id number] 07:59:00* Test Item Value Reference Range Interpretation [...] code = CA) 8.6 mg/dL 8.5-10.1 N [id number] 07:59:00* Test Item Value Reference Range Interpretation Comments MAGNESIUM (test code = MAG) 1.8 mg/dL 1.8-2.4 N [id number] 07:54:00* Test Item Value Reference Range Interpretation Comments GLUBED (test code = GLUBED) 232 mg/dL 74-106 H Performed by certified first coat operator at [facility] BASIC METABOLIC [id number] 07:35:00* Test Item Value Reference Range Interpretation [...] CALCIUM (test code = CA) mg/dL 8.5-10.1 [id number] 07:35:00* Test Item Value Reference Range Interpretation Comments MAGNESIUM (test code = MAG) mg/dL 1.8-2.4 [id number] 20:33:00* Test Item Value Reference Range Interpretation Comments GLUBED (test code = GLUBED) 161 mg/dL 74-106 H Performed by certified first coat operator at [facility] [id number] 16:15:00* Test Item Value Reference Range Interpretation Comments GLUBED (test code = GLUBED) 137 mg/dL 74-106 H Performed by certified first coat operator at [facility] [id number] 15:50:00 RUN DATE: 08/29/19 [facility] PAGE 1 RUN TIME: 1550 Specimen Inqui ry RUN USER: INTERFACE PATIENT: KALYANI TALAVERA ACCT #: [id number] LOC: [facility] U #: [id number] AGE/SX: 64/F ROOM: [facility] RE08/29/19REG DR: Benjamin Masters MD : 57 BED: A DIS: STATUS: ADM IN TLOC: SPEC #: [id number] RECD: 08/28/19 STATUS: SHREYA BROWN #: [id number] MARILEE: 08/27/19 DR: Emil Martinez MD ENTERED: 08/28/19 SP TYPE: STOMACH OTHR DR: Faizan Barron i, MD, Kuldip Kumar MD Ojeas, Harry Silvio MDORDERED: GROSS COPIES TO: Emil Martinez MD [address] [place] [address] Faizan Jennings MD [address] [place] [address] Harry Gutierrez MD [address] [facility] [address] [place] [address] Kb Bradford MD [address] [address] PROCEDURES: GROSS (08/29/19- 1451) TISSUES: ANTRAL BIOPSY - H-PYLORI CLINICAL HISTORY COLLECTION DATE: 08/27/19 DYSPHAGIA FINAL DIAGNOSIS Antrum, biop sy: REACTIVE GASTROPATHY NO INTESTINAL METAPLASIA SEEN NEGA TIVE FOR HELICOBACTER PYLORI BY GIEMSA STAIN NEGATIVE FOR MALIGNANCY CONTINUED ON NEXT PAGE RUN DATE : 08/29/19 [facility] - Lab PAGE 2 RUN TIME: 1550 Specimen Inquiry RUN USER: INTERFACE SPEC #: [id number] PATIENT: KALYANI TALAVERA #V [id number] (Continued) FINAL DIAGNOSIS (Continue d) BRITTNI/corby Simpson [address], [address] MACROSCOPIC The specimen is re ceived in formalin, labeled with the patient's name, and identified as "antrum bx", and consists of two gutierrez biopsies measuring 0.25 cm each. RADHA SS PERFORMED AT [facility] COATING MACHINE HELPER S [address] [place] [address] (p)[phone] MICROS COPIC All of the stains, including any controls performed, stain casandra loyd. MICROSCOPIC PERFORMED AT [facility] [address] [place] [address] ([phone] PERFORMING SITE Diagnosis performed at: [facility], YANETH [address] [place] [address] Signed SIGNATURE ON FILE Petty Lowe MD 08/29/19 1550 END OF REPORT [id number] 11:43:00* Test Item Value Reference Range Interpretation Comments GLUBED (test code = GLUBED) 318 mg/dL 74-106 H Performed by certified first coat operator at [facility] BASIC METABOLIC [id number] 09:27:00* Test Item Value Reference Range Interpretation [...] CA) 8.5 mg/dL 8.5-10.1 N BASIC METABOLIC [id number] 09:17:00* Test Item Value Reference Range Interpretation [...] CALCIUM (test code = CA) mg/dL 8.5-10.1 [id number] 08:08:00* Test Item Value Reference Range Interpretation Comments GLUBED (test code = GLUBED) 291 mg/dL 74-106 H Performed by certified first coat operator at [facility] [id number] 20:52:00* Test Item Value Reference Range Interpretation Comments GLUBED (test code = GLUBED) 267 mg/dL 74-106 H Performed by certified first coat operator at [facility] [id number] 19:40:00* Test Item Value Reference Range Interpretation Comments TROPONIN-I (test code = TROPI) <0.015 ng/mL 0-0.045 N SPECIMEN COMMENTS: [id number] 19:27:00* Test Item Value Reference Range Interpretation Comments MAGNESIUM (test code = MAG) 1.6 mg/dL 1.8-2.4 L - XR ANKLE 3 + V [id number] 16:26:00 FAX: Benjamin Francis MD [phone] Ashley: B St: ADM Name: KALYANI CATES [facility] : [birth year] Age/S: 64/F [address] [facility] Unit #: [id number] Loc: V.[address] [place] [address] Phys: Benjamin Masters MD Acct: [id number] Dis Date: Status: ADM IN PHONE #: [phone] Exam Date: 08/28/2019 1600 FAX #: [phone] Reason: Left ankle injury EXAMS: CPT CODE: [id number] XR ANKLE 3 + V LT 56046 REASON FOR EXAM: Left ankle injury EXAM ORDER DATE: 08/28/2019 12:00 AM Ordering: Benjamin Masters MD Attending:Benjamin Masters MD Location:[facility] PROCEDURE: - XR ANKLE 3 + V LT FINDIN GS: 3 views of the left ankle were obtained. The osseous structures are un remarkable in size and shape. The joint spaces are maintained. No evidence of fracture. The syndesmosis is intact. IMPRESSION: Mild soft tissue swelling in the lateral malleolus. at 2769 Reported and signed by: Pelon Moreno M.D. CC: Benjamin Masters Technologist: Jacquie Alcantara RT(R) Trnscrd Date/Time/By: 08/28/2019 (9272) : By: LeanneVTL Orig P rint D/T: S: 08/28/2019 (1609) PAGE 1 Signed Report [id number] 16:25:00* Test Item Value Reference Range Interpretation Comments GLUBED (test code = GLUBED) 241 mg/dL 74-106 H Performed by certified first coat operator at [facility] - XR CHEST 1 [id number] 16:25:00 FAX: Benjamin Francis MD [phone] Ashley: B St: ADM Name: KALYANI CATES [facility] : [birth year] Age/S: 64/F [address] [facility] Unit #: [id number] Loc: [address] [place] [address] Phys: Benjamin Masters MD Acct: [id number] Dis Date: Status: ADM IN PHONE #: [phone] Exam Date: 08/28/2019 1600 FAX #: [phone] Reason: CHF EXAMS: CPT CODE: [id number] XR CHEST 1 V 30418 REASON FOR EXAM: CHF EXAM ORDER DATE: 08/28/2019 12:00 AM Ordering: Benjamin Masters MD Attending:Benjamin Masters MD Location:[facility] PRO CEDURE: - XR CHEST 1 V COMPARISON: 08/27/2019 FINDING S: Portable AP frontal view of the chest obtained at 3:59 PM shows clear lungs without evidence of consolidation. There is no evidence of effusion. The heart size is minimally enlarged. Pulmonary vasculatures are minimally congested. IMPRESSION: Interval improvement in the congestive heart failure. at 7272 Reported and signed by: Pelon Moreno M.D. CC: Benjamin Masters Technologi st: Jacquie Alcantara RT(R) Trnscrd Date/Time/By: 08/28/2019 (7648) : By: LeanneVTL Orig Print D/T: S: 08/28/2019 (2075) PAGE 1 Signed Report [id number] 11:24:00* Test Item Value Reference Range Interpretation Comments GLUBED (test code = GLUBED) 289 mg/dL 74-106 H Performed by certified first coat operator at [facility] [id number] 07:51:00* Test Item Value Reference Range Interpretation Comments GLUBED (test code = GLUBED) 345 mg/dL 74-106 H Performed by certified first coat operator at [facility] BASIC METABOLIC [id number] 06:05:00* Test Item Value Reference Range Interpretation [...] CA) 8.4 mg/dL 8.5-10.1 L CBC W/AUTO [id number] 06:00:00* Test Item Value Reference Range Interpretation [...] = MDIFF) NO, ONLY SCAN NEEDED DIFFERENTIAL [id number] 06:00:00* Test Item Value Reference Range Interpretation Comments STAIN ACCEPTABILITY (test code = STN ACCEPTABLE) STAIN ACCEPTABLE ANISOCYTOSIS (test code = ANISO) 2+ MICROCYTOSIS (test code = MICR) 2+ PLATELET ESTIMATE (test code = PLTEST) ADEQUATE PLATELET MORPHOLOGY (test code = PLTMORPH) NORMAL BASIC METABOLIC [id number] 05:57:00* Test Item Value Reference Range Interpretation [...] code = CA) mg/dL 8.5-10.1 CBC W/AUTO [id number] 05:35:00* Test Item Value Reference Range Interpretation [...] = MDIFF) NO, ONLY SCAN NEEDED DIFFERENTIAL [id number] 05:35:00* Test Item Value Reference Range Interpretation Comments STAIN ACCEPTABILITY (test code = STN ACCEPTABLE) CABOT RINGS (test code = CAB) MORPHOLOGY COMMENT (test code = MOC) PLATELET ESTIMATE (test code = PLTEST) PLATELET MORPHOLOGY (test code = PLTMORPH) CBC W/AUTO [id number] 05:35:00* Test Item Value Reference Range Interpretation [...] = MDIFF) NO, ONLY SCAN NEEDED DIFFERENTIAL [id number] 05:35:00* Test Item Value Reference Range Interpretation Comments STAIN ACCEPTABILITY (test code = STN ACCEPTABLE) MORPHOLOGY COMMENT (test code = MOC) PLATELET ESTIMATE (test code = PLTEST) PLATELET MORPHOLOGY (test code = PLTMORPH) CBC W/AUTO [id number] 05:35:00* Test Item Value Reference Range Interpretation [...] = MDIFF) NO, ONLY SCAN NEEDED DIFFERENTIAL [id number] 05:35:00* Test Item Value Reference Range Interpretation Comments STAIN ACCEPTABILITY (test code = STN ACCEPTABLE) MORPHOLOGY COMMENT (test code = MOC) PLATELET ESTIMATE (test code = PLTEST) PLATELET MORPHOLOGY (test code = PLTMORPH) CBC W/AUTO [id number] 05:35:00* Test Item Value Reference Range Interpretation [...] = MDIFF) NO, ONLY SCAN NEEDED DIFFERENTIAL [id number] 05:35:00* Test Item Value Reference Range Interpretation Comments STAIN ACCEPTABILITY (test code = STN ACCEPTABLE) CABOT RINGS (test code = CAB) MORPHOLOGY COMMENT (test code = MOC) PLATELET ESTIMATE (test code = PLTEST) PLATELET MORPHOLOGY (test code = PLTMORPH) [id number] 20:01:00* Test Item Value Reference Range Interpretation Comments GLUBED (test code = GLUBED) 220 mg/dL 74-106 H Performed by certified first coat operator at [facility] [id number] 19:18:00* Test Item Value Reference Range Interpretation Comments GLYCOSYLATED HEMOGLOBIN (HA1C) (test code = GLYHGB) 9.6 % HbA1 SUGGESTED DIAGNOSIS: HbA1C (%) Diabetic >6.4Prediabetes 5.7 - 6.4Normal <5.7 ESTIMATED AVERAGE GLUCOSE (test code = EAG) 229 MG/DL - XR CHEST 1 [id number] 18:54:00 FAX: Loan Cortez NP [phone] Ashley: B St: ADM FAX: Benjamin Francis MD [phone] Name: KALYANI TALAVERA [facility] : 1955 Age/S: 64/F [address] [facility] Unit #: [id number] Loc: V.[address] [place] [address] Phys: Loan Cortez NP Acct: [id number] Dis Date: Status: ADM IN PHONE #: [phone] Exam Date: 08/27/2019 1845 FAX #: [phone] Reason: shortness of breath EXAMS: CPT CODE: [id number] XR CHEST 1 V 79335 REASON FOR EXAM: shortness of breath EXAM [...] S: 08/27/2019 (1856) PAGE 1 Signed Report [id number] 18:35:00* Test Item Value Reference Range Interpretation Comments GLUBED (test code = GLUBED) 201 mg/dL 74-106 H Performed by certified first coat operator at [facility] T4 [id number] 18:03:00* Test Item Value Reference Range Interpretation Comments T4 FREE (test code = T4F) 1.10 ng/dL 0.76-1.46 N THYROID STIMULATING [id number] 18:03:00* Test Item Value Reference Range Interpretation Comments THYROID STIMULATING HORMONE (test code = TSH) 1.260 uIU/mL 0.36-3.7 4 N TSH REFERENCE RANGES: EUTHYROID: 0.35 - 4.3 mIU/mL HYPO : > 5.5 mIU/mL HYPER : < 0.35 mIU/mL [id number] 16:50:00* Test Item Value Reference Range Interpretation Comments GLUBED (test code = GLUBED) 217 mg/dL 74-106 H Performed by certified first coat operator at [facility] [id number] 12:15:00* Test Item Value Reference Range Interpretation Comments GLUBED (test code = GLUBED) 272 mg/dL 74-106 H Performed by certified first coat operator at [facility] [id number] 08:14:00* Test Item Value Reference Range Interpretation Comments GLUBED (test code = GLUBED) 322 mg/dL 74-106 H Performed by certified first coat operator at [facility] [id number] 04:01:00* Test Item Value Reference Range Interpretation Comments GLUBED (test code = GLUBED) 329 mg/dL 74-106 H Performed by certified first coat operator at [facility] CBC W/AUTO [id number] 23:42:00* Test Item Value Reference Range Interpretation [...] = MDIFF) NO, ONLY SCAN NEEDED DIFFERENTIAL [id number] 23:42:00* Test Item Value Reference Range Interpretation Comments STAIN ACCEPTABILITY (test code = STN ACCEPTABLE) STAIN ACCEPTABLE ANISOCYTOSIS (test code = ANISO) 2+ MICROCYTOSIS (test code = MICR) 2+ PLATELET ESTIMATE (test code = PLTEST) ADEQUATE PLATELET MORPHOLOGY (test code = PLTMORPH) NORMAL COMPREHENSIVE METABOLIC [id number] 23:14:00* Test Item Value Reference Range Interpretation [...] 628 mg/dL 74-106 Re sults called to [id number] by V.LAB.JP1 08/26/19 2313Critical results verified and [...] range due to change in reagent. URINALYSIS [id number] 23:08:00* Test Item Value Reference Range Interpretation [...] #/HPF NONE Urine Source? Clean CatchCOMPREHENSIVE METABOLIC [id number] 23:02:00* Test Item Value Reference Range Interpretation [...] code = ALKP) IUnit/L 45-117 CBC W/AUTO [id number] 22:58:00* Test Item Value Reference Range Interpretation [...] = MDIFF) NO, ONLY SCAN NEEDED DIFFERENTIAL [id number] 22:58:00* Test Item Value Reference Range Interpretation Comments STAIN ACCEPTABILITY (test code = STN ACCEPTABLE) CABOT RINGS (test code = CAB) MORPHOLOGY COMMENT (test code = MOC) PLATELET ESTIMATE (test code = PLTEST) PLATELET MORPHOLOGY (test code = PLTMORPH) CBC W/AUTO [id number] 22:58:00* Test Item Value Reference Range Interpretation [...] = MDIFF) NO, ONLY SCAN NEEDED DIFFERENTIAL [id number] 22:58:00* Test Item Value Reference Range Interpretation Comments STAIN ACCEPTABILITY (test code = STN ACCEPTABLE) CABOT RINGS (test code = CAB) MORPHOLOGY COMMENT (test code = MOC) PLATELET ESTIMATE (test code = PLTEST) PLATELET MORPHOLOGY (test code = PLTMORPH) CBC W/AUTO [id number] 22:58:00* Test Item Value Reference Range Interpretation [...] = MDIFF) NO, ONLY SCAN NEEDED DIFFERENTIAL [id number] 22:58:00* Test Item Value Reference Range Interpretation Comments STAIN ACCEPTABILITY (test code = STN ACCEPTABLE) MORPHOLOGY COMMENT (test code = MOC) PLATELET ESTIMATE (test code = PLTEST) PLATELET MORPHOLOGY (test code = PLTMORPH) CBC W/AUTO [id number] 22:58:00* Test Item Value Reference Range Interpretation [...] = MDIFF) NO, ONLY SCAN NEEDED DIFFERENTIAL [id number] 22:58:00* Test Item Value Reference Range Interpretation Comments STAIN ACCEPTABILITY (test code = STN ACCEPTABLE) CABOT RINGS (test code = CAB) MORPHOLOGY COMMENT (test code = MOC) PLATELET ESTIMATE (test code = PLTEST) PLATELET MORPHOLOGY (test code = PLTMORPH) VENOUS BLOOD [id number] 22:36:00* Test Item Value Reference Range Interpretation [...] [place] 22:17 - 08/26/2019; by Marcie TONY [employer] APPRENTICE METHEMOGLOBIN (test code = METHGB) 0.1 % 0.0-1.50 N BASIC METABOLIC [id number] 14:12:00* Test Item Value Reference Range Interpretation [...] CA) 8.7 mg/dL 8.5-10.1 N BASIC METABOLIC [id number] 14:06:00* Test Item Value Reference Range Interpretation [...] CA) 8.7 mg/dL 8.5-10.1 N CBC W/AUTO [id number] 13:33:00* Test Item Value Reference Range Interpretation [...] K/mm3 0.0-0.1 N - CT C-SPINE W/O [id number] 08:02:00 Name: KALYANI TALAVERA [facility] : 1955 Age/S: 64 / F [address] Unit #: [id number] Loc: [place] [address] Phys: Thelma Loyd Acct: [id number] Dis Date: Status: REG ER PHONE #: [phone] Exam Date: 08/06/2019 0994 FAX #: [phone] Reason: Neck Pain EXAMS: CPT CODE: [id number] CT C-SPINE W/O CONTRAST 89833 HISTORY: Neck Pain, status post fall TECHNIQUE: [...] RT(R),(MR),(CT) CTDI: DLP: Trnscb Date/Time: 08/06/2019 (0802) [email or web address] Orig Print D/T: S: 08/06/2019 (0805) PAGE 1 Signed Report BASIC METABOLIC [id number] 07:06:00* Test Item Value Reference Range Interpretation [...] CA) 9.1 mg/dL 8.5-10.1 N BASIC METABOLIC [id number] 07:02:00* Test Item Value Reference Range Interpretation [...] code = CA) mg/dL 8.5-10.1 CBC W/O [id number] 06:41:00* Test Item Value Reference Range Interpretation [...] fL 6.7-11.0 N - CT C-SPINE W/O [id number] 06:25:00 Name: KALYANI TALAVERA [facility] : 1955 Age[facility]S: 64 [facility] [address] [facility]: [id number] Loc: [place] [address] Phys: Thelma Loyd DO Acct: [id number] Dis Date: Status: REG ER PHONE #: [phone] Exam Date: 08/06/2019 0605 FAX #: [phone] Reason: Neck Pain EXAMS: CPT CODE: [id number] CT C-SPINE W/O CONTRAST 19790 EXAM: - CT C-SPINE W/O CONTRAST HISTORY: [...] RT CTDI: DLP: Trnscb Date/Time: 08/06/2019 (06 ) [email or web address] Orig Print D/T: S: 08/06/2019 (06) P AGE 2 Signed Report - CT MAXIFAC W/O [id number] 06:21:00 Name: KALYANI TALAVERA [facility] : 1955 Age/S: 64 / [facility] [address] [facility]: [id number] Loc: [place] [address] Phys: EvertBrianThelma DO Acct: [id number] Dis Date: Status: REG ER PHONE #: [phone] Exam Date: 08/06/2019609 FAX #: [phone] Reason: TRAUMA EXAMS: CPT CODE: [id number] CT MAXIFAC [place] [address] EXAM: - CT MAXIFAC W/O CNT HISTORY: [...] RT CTDI: DLP: Trnscb Date/Time: 08/06/2019 (06) Peggy5 Orig Print D/T: S: 08/06/2019 (6539) PAGE 1 Signed Report - CT HEAD/BRAIN W/O [id number] 06:20:00 Name: KALYANI TALAVERA [facility] : 1955 Age/S: 64 / F [address] Unit #: [id number] Loc: [place] [address] Phys: Thelma Loyd DO Acct: [id number] Dis Date: Status: REG ER PHONE #: [phone] Exam Date: 08/06/2019 0559 FAX #: [phone] Reason: HEADACHE EXAMS: CPT CODE: [id number] CT HEAD/BRAIN W/O CONT 12570 EXAM: - CT HEAD/BRAIN W/O CONT Location [...] 1 Signed Report (CONTINUED) Name: KALYANI MOSES [facility] : 1955 Age/S: 64 / F [address] Unit #: [id number] L oc: [place] [address] Phys: Thelma Loyd Acct: [id number] Dis Date: Status: REG ER PHONE #: [phone] Exam Date: 08/06/2019 0559 FAX #: [phone] Malinda son: HEADACHE EXAMS: CPT CODE: [id number] CT HEAD/BRAIN W/O CONT 03067 <Continued> CC: Thelma Loyd DO; Benjamin Masters Technologist:JORDEN MERCADO, RT CTDI: DLP: Trnscb Date/Time: 08/06/2019 (06) [email or web address] Orig Print D/T: S: 08/06/2019 (0623) PAGE 2 Signed Report BASIC METABOLIC [id number] 07:49:00* Test Item Value Reference Range Interpretation [...] code = CA) 8.7 mg/dL 8.5-10.1 N [id number] 06:05:00* Test Item Value Reference Range Interpretation Comments GLUBED (test code = GLUBED) 181 mg/dL 74-106 H Performed by certified first coat operator at [facility] [id number] 20:37:00* Test Item Value Reference Range Interpretation Comments GLUBED (test code = GLUBED) 285 mg/dL 74-106 H Performed by certified first coat operator at [facility] [id number] 17:15:00* Test Item Value Reference Range Interpretation Comments GLUBED (test code = GLUBED) 84 mg/dL 74-106 N Performed by certified first coat operator at [facility] [id number] 17:15:00* Test Item Value Reference Range Interpretation Comments GLUBED (test code = GLUBED) 166 mg/dL 74-106 H Performed by certified first coat operator at [facility] BASIC METABOLIC [id number] 07:13:00* Test Item Value Reference Range Interpretation [...] CA) 8.7 mg/dL 8.5-10.1 N BASIC METABOLIC [id number] 07:09:00* Test Item Value Reference Range Interpretation [...] code = CA) mg/dL 8.5-10.1 CBC W/AUTO [id number] 06:42:00* Test Item Value Reference Range Interpretation [...] DIFF REQUIRED (test code = MDIFF) NO [id number] 06:33:00* Test Item Value Reference Range Interpretation Comments GLUBED (test code = GLUBED) 180 mg/dL 74-106 H Performed by certified first coat operator at [facility] [id number] 20:48:00* Test Item Value Reference Range Interpretation Comments GLUBED (test code = GLUBED) 403 mg/dL 74-106 H Performed by certified first coat operator at [facility] [id number] 18:00:00* Test Item Value Reference Range Interpretation Comments GLUBED (test code = GLUBED) 326 mg/dL 74-106 H Performed by certified first coat operator at [facility] [id number] 14:21:00* Test Item Value Reference Range Interpretation Comments GLYCOSYLATED HEMOGLOBIN (HA1C) (test code = GLYHGB) 8.9 % HbA1 SUGGESTED DIAGNOSIS: HbA1C (%) Diabetic >6.4Prediabetes 5.7 - 6.4Normal <5.7 ESTIMATED AVERAGE GLUCOSE (test code = EAG) 209 MG/DL [id number] 13:22:00* Test Item Value Reference Range Interpretation Comments GLUBED (test code = GLUBED) 222 mg/dL 74-106 H Performed by certified first coat operator at [facility] CBC W/AUTO [id number] 10:20:00* Test Item Value Reference Range Interpretation [...] = MDIFF) NO, ONLY SCAN NEEDED DIFFERENTIAL [id number] 10:20:00* Test Item Value Reference Range Interpretation Comments STAIN ACCEPTABILITY (test code = STN ACCEPTABLE) STAIN ACCEPTABLE MORPHOLOGY COMMENT (test code = MOC) NORMAL PLATELET ESTIMATE (test code = PLTEST) ADEQUATE PLATELET MORPHOLOGY (test code = PLTMORPH) NORMAL COMPREHENSIVE METABOLIC [id number] 10:05:00* Test Item Value Reference Range Interpretation [...] due to change in reagent. B-TYPE NATRIURETIC [id number] 09:56:00* Test Item Value Reference Range Interpretation Comments B-TYPE NATRIURETIC PEPTIDE (test code = BNP) 62.56 pgram/mL 0-100 N COMPREHENSIVE METABOLIC [id number] 09:55:00* Test Item Value Reference Range Interpretation [...] code = ALKP) IUnit/L 45-117 CBC W/AUTO [id number] 09:21:00* Test Item Value Reference Range Interpretation [...] = MDIFF) NO, ONLY SCAN NEEDED DIFFERENTIAL [id number] 09:21:00* Test Item Value Reference Range Interpretation Comments STAIN ACCEPTABILITY (test code = STN ACCEPTABLE) CABOT RINGS (test code = CAB) MORPHOLOGY COMMENT (test code = MOC) PLATELET ESTIMATE (test code = PLTEST) PLATELET MORPHOLOGY (test code = PLTMORPH) CBC W/AUTO [id number] 09:21:00* Test Item Value Reference Range Interpretation [...] = MDIFF) NO, ONLY SCAN NEEDED DIFFERENTIAL [id number] 09:21:00* Test Item Value Reference Range Interpretation Comments STAIN ACCEPTABILITY (test code = STN ACCEPTABLE) MORPHOLOGY COMMENT (test code = MOC) PLATELET ESTIMATE (test code = PLTEST) PLATELET MORPHOLOGY (test code = PLTMORPH) CBC W/AUTO [id number] 09:20:00* Test Item Value Reference Range Interpretation [...] = MDIFF) NO, ONLY SCAN NEEDED DIFFERENTIAL [id number] 09:20:00* Test Item Value Reference Range Interpretation Comments STAIN ACCEPTABILITY (test code = STN ACCEPTABLE) CABOT RINGS (test code = CAB) MORPHOLOGY COMMENT (test code = MOC) PLATELET ESTIMATE (test code = PLTEST) PLATELET MORPHOLOGY (test code = PLTMORPH) CBC W/AUTO [id number] 09:20:00* Test Item Value Reference Range Interpretation [...] = MDIFF) NO, ONLY SCAN NEEDED DIFFERENTIAL [id number] 09:20:00* Test Item Value Reference Range Interpretation Comments STAIN ACCEPTABILITY (test code = STN ACCEPTABLE) CABOT RINGS (test code = CAB) MORPHOLOGY COMMENT (test code = MOC) PLATELET ESTIMATE (test code = PLTEST) PLATELET MORPHOLOGY (test code = PLTMORPH) [id number] 06:25:00* Test Item Value Reference Range Interpretation Comments GLUBED (test code = GLUBED) 208 mg/dL 74-106 H Performed by certified first coat operator at [facility] [id number] 20:49:00* Test Item Value Reference Range Interpretation Comments GLUBED (test code = GLUBED) 383 mg/dL 74-106 H Performed by certified first coat operator at [facility] [id number] 20:49:00* Test Item Value Reference Range Interpretation Comments GLUBED (test code = GLUBED) 421 mg/dL 74-106 H Performed by certified first coat operator at [facility] - XR CHEST 1 [id number] 16:23:00 FAX: Alfa Moscoso MD [phone] Ashley: B St: [facility] FAX: Benjamin Francis MD [phone] Name: KALYANI TALAVERA [facility] : 1955 Age/S: 64/F [address] Unit #: [id number] Loc: [place] [address] Phys: Alfa Cassidy MD Acct: [id number] Dis Date: Status: ADM IN PHONE #: [phone] Exam Date: 06/29/2019 1600 FAX #: [phone] Reason: CHF EXAMS: CPT CODE: [id number] XR CHEST 1 V 15175 HISTORY: CHF. COMPARISON: June 28, 2019. Single [...] Technologist: Kizzy Cisse RT(R) Trnscrd Date/Time/By: 06/29/2019 (1626) : By: [email or web address] Orig Print D/T: S: 06/30/2019 (1221) PAGE 1 Signed Report GLUBED 2019-06-29 12:29:00* Test Item Value Reference Range Interpretation Comments GLUBED (test code = GLUBED) 310 mg/dL 74-106 H Performed by certified first coat operator at [facility] [id number] 06:19:00* Test Item Value Reference Range Interpretation Comments GLUBED (test code = GLUBED) 339 mg/dL 74-106 H Performed by certified first coat operator at [facility] [id number] 00:36:00* Test Item Value Reference Range Interpretation Comments GLUBED (test code = GLUBED) 454 mg/dL 74-106 H Performed by certified first coat operator at [facility] [id number] 20:49:00* Test Item Value Reference Range Interpretation Comments GLUBED (test code = GLUBED) 480 mg/dL 74-106 H Performed by certified first coat operator at [facility] [id number] 18:21:00* Test Item Value Reference Range Interpretation Comments GLUBED (test code = GLUBED) 388 mg/dL 74-106 H Performed by certified first coat operator at [facility] URINALYSIS [id number] 11:46:00* Test Item Value Reference Range Interpretation [...] #/LPF FEW Urine Source? Clean CatchB-TYPE NATRIURETIC [id number] 10:41:00* Test Item Value Reference Range Interpretation [...] taking into account the patients history. PROTHROMBIN [id number] 09:36:00* Test Item Value Reference Range Interpretation [...] (2.5-3.5) IS PATIENT ON ANTICOAGULANTS? NTHROMBOPLASTIN TIME [id number] 09:36:00* Test Item Value Reference Range Interpretation Comments THROMBOPLASTIN TIME PARTIAL (test code = PTT) 33.1 seconds 25.0-36. 5 N IS PATIENT ON ANTICOAGULANTS? [id number] 09:36:00* Test Item Value Reference Range Interpretation [...] cirrhosis - IS PATIENT ON ANTICOAGULANTS? NLACTIC [id number] 09:31:00* Test Item Value Reference Range Interpretation Comments LACTIC ACID (test code = LACT) 0.9 mmol/L 0.4-1.9 N BASIC METABOLIC [id number] 09:23:00* Test Item Value Reference Range Interpretation [...] code = CA) 8.8 mg/dL 8.5-10.1 N [id number] 09:23:00* Test Item Value Reference Range Interpretation Comments TROPONIN-I (test code = TROPI) <0.015 ng/mL 0-0.045 N - XR CHEST 1 [id number] 08:57:00 FAX: Amish Nur Si [phone] Ashley: B St: REG FAX: Anastacio Burgess MD Name: KALYANI TALAVERA [facility] : 1955 Age/S: 64/F [address] Unit #: [id number] Loc: [place] [address] Phys: Anastacio Burgess MD Acct: [id number] Dis Date: Status: REG ER PHONE #: [phone] Exam Date: 06/28/2019825 FAX #: [phone] Reason: Shortness of Breath EXAMS: CPT CODE: [id number] XR CHEST 1 V 03547 REASON FOR EXAM: Shortness of Breath Exam [...] lung volumes with bibasilar subsegmental atelectasis. Location: [facility] at 0857 Reported and signed by: Dago Goodson MD CC: Lucille Land MD; Anastacio Burgess MD Technologist: Dayan Gallagher Trnscrd Date/Time/By: 06/28/2019 (0857) : By: [email or web address] Orig Print D/T: S: 06/28/2019 (0900) PAGE 1 Signed Report VENOUS BLOOD [id number] 08:54:00* Test Item Value Reference Range Interpretation [...] METHGB) 0.3 % 0.0-1.50 N CBC W/O [id number] 08:45:00* Test Item Value Reference Range Interpretation [...] code = MPV) 10.1 fL 6.7-11.0 N [id number] 16:30:00* Test Item Value Reference Range Interpretation Comments GLUBED (test code = GLUBED) 256 mg/dL 74-106 H Performed by certified first coat operator at [facility] [id number] 16:30:00* Test Item Value Reference Range Interpretation Comments GLUBED (test code = GLUBED) 277 mg/dL 74-106 H Performed by certified first coat operator at [facility] [id number] 07:50:00* Test Item Value Reference Range Interpretation Comments GLUBED (test code = GLUBED) 145 mg/dL 74-106 H Performed by certified first coat operator at [facility] [id number] 20:38:00* Test Item Value Reference Range Interpretation Comments GLUBED (test code = GLUBED) 250 mg/dL 74-106 H Performed by certified first coat operator at [facility] [id number] 16:19:00* Test Item Value Reference Range Interpretation Comments GLUBED (test code = GLUBED) 340 mg/dL 74-106 H Performed by certified first coat operator at [facility] [id number] 11:09:00* Test Item Value Reference Range Interpretation Comments GLUBED (test code = GLUBED) 102 mg/dL 74-106 N Performed by certified first coat operator at [facility] [id number] 07:20:00* Test Item Value Reference Range Interpretation Comments GLUBED (test code = GLUBED) 144 mg/dL 74-106 H Performed by certified first coat operator at [facility] [id number] 21:56:00* Test Item Value Reference Range Interpretation Comments GLUBED (test code = GLUBED) 328 mg/dL 74-106 H Performed by certified first coat operator at [facility] [id number] 16:11:00* Test Item Value Reference Range Interpretation Comments GLUBED (test code = GLUBED) 378 mg/dL 74-106 H Performed by certified first coat operator at [facility] [id number] 11:08:00* Test Item Value Reference Range Interpretation Comments GLUBED (test code = GLUBED) 168 mg/dL 74-106 H Performed by certified first coat operator at [facility] [id number] 07:29:00* Test Item Value Reference Range Interpretation Comments GLUBED (test code = GLUBED) 205 mg/dL 74-106 H Performed by certified first coat operator at [facility] B-TYPE NATRIURETIC [id number] 06:12:00* Test Item Value Reference Range Interpretation Comments B-TYPE NATRIURETIC PEPTIDE (test code = BNP) 86.51 pgram/mL 0-100 N COMPREHENSIVE METABOLIC [id number] 05:53:00* Test Item Value Reference Range Interpretation [...] due to change in reagent. COMPREHENSIVE METABOLIC [id number] 05:37:00* Test Item Value Reference Range Interpretation [...] code = ALKP) IUnit/L 45-117 CBC W/AUTO [id number] 05:26:00* Test Item Value Reference Range Interpretation [...] DIFF REQUIRED (test code = MDIFF) NO [id number] 02:25:00* Test Item Value Reference Range Interpretation Comments GLUBED (test code = GLUBED) 408 mg/dL 74-106 H Performed by certified first coat operator at [facility] [id number] 17:10:00* Test Item Value Reference Range Interpretation Comments GLUCOSE (test code = GLU) 536 mg/dL 74-106 HH Re sults called to [id number] by [facility]. 06/10/19 1710Critical results verified and read back by Nurse? Y [id number] 16:05:00* Test Item Value Reference Range Interpretation Comments GLUBED (test code = GLUBED) > 500 mg/dL 74-106 HH [facility] [id number] 11:05:00* Test Item Value Reference Range Interpretation Comments GLUBED (test code = GLUBED) 279 mg/dL 74-106 H Performed by certified first coat operator at [facility] BASIC METABOLIC [id number] 11:02:00* Test Item Value Reference Range Interpretation [...] code = CA) 8.9 mg/dL 8.5-10.1 N [id number] 11:02:00* Test Item Value Reference Range Interpretation Comments MAGNESIUM (test code = MAG) 2.0 mg/dL 1.8-2.4 N BASIC METABOLIC [id number] 10:52:00* Test Item Value Reference Range Interpretation [...] CALCIUM (test code = CA) mg/dL 8.5-10.1 [id number] 10:52:00* Test Item Value Reference Range Interpretation Comments MAGNESIUM (test code = MAG) mg/dL 1.8-2.4 [id number] 07:27:00* Test Item Value Reference Range Interpretation Comments GLUBED (test code = GLUBED) 260 mg/dL 74-106 H Performed by certified first coat operator at [facility] [id number] 20:43:00* Test Item Value Reference Range Interpretation Comments GLUBED (test code = GLUBED) 417 mg/dL 74-106 H Performed by certified first coat operator at [facility] [id number] 15:54:00* Test Item Value Reference Range Interpretation Comments GLUBED (test code = GLUBED) 389 mg/dL 74-106 H Performed by certified first coat operator at [facility] [id number] 12:24:00* Test Item Value Reference Range Interpretation Comments GLUBED (test code = GLUBED) 389 mg/dL 74-106 H Performed by certified first coat operator at [facility] [id number] 07:56:00* Test Item Value Reference Range Interpretation Comments GLUBED (test code = GLUBED) 350 mg/dL 74-106 H Performed by certified first coat operator at [facility] [id number] 04:10:00* Test Item Value Reference Range Interpretation Comments GLUBED (test code = GLUBED) 427 mg/dL 74-106 H Performed by certified first coat operator at [facility] [id number] 19:56:00* Test Item Value Reference Range Interpretation Comments GLUBED (test code = GLUBED) 384 mg/dL 74-106 H Performed by certified first coat operator at [facility] [id number] 16:27:00* Test Item Value Reference Range Interpretation Comments GLUBED (test code = GLUBED) 378 mg/dL 74-106 H Performed by certified first coat operator at [facility] [id number] 12:06:00* Test Item Value Reference Range Interpretation Comments GLUBED (test code = GLUBED) 402 mg/dL 74-106 H Performed by certified first coat operator at [facility] [id number] 11:11:00* Test Item Value Reference Range Interpretation Comments TROPONIN-I (test code = TROPI) <0.015 ng/mL 0-0.045 N COMMENTS TO DATA RECOVERY PLANNER: COLLECT 3 HOURS AFTER PREVIOUS SAMPLEURINALYSIS [id number] 08:30:00* Test Item Value Reference Range Interpretation [...] MUCU) FEW #/LPF FEW Urine Source? Clean [id number] 07:35:00* Test Item Value Reference Range Interpretation Comments TROPONIN-I (test code = TROPI) <0.015 ng/mL 0-0.045 N COMMENTS TO DATA RECOVERY PLANNER: COLLECT 3 HOURS AFTER PREVIOUS [id number] 06:35:00* Test Item Value Reference Range Interpretation Comments GLUBED (test code = GLUBED) 298 mg/dL 74-106 H Performed by certified first coat operator at [facility] BASIC METABOLIC [id number] 01:22:00* Test Item Value Reference Range Interpretation [...] CA) 8.5 mg/dL 8.5-10.1 N HEPATIC FUNCTION [id number] 01:22:00* Test Item Value Reference Range Interpretation [...] reference range due to change in reagent. [id number] 01:22:00* Test Item Value Reference Range Interpretation Comments LIPASE (test code = LIP) 143 U/L 73.0-393.0 N [id number] 01:22:00* Test Item Value Reference Range Interpretation Comments TROPONIN-I (test code = TROPI) <0.015 ng/mL 0-0.045 N BASIC METABOLIC [id number] 01:14:00* Test Item Value Reference Range Interpretation [...] code = CA) mg/dL 8.5-10.1 HEPATIC FUNCTION [id number] 01:14:00* Test Item Value Reference Range Interpretation [...] TOTAL (test code = ALKP) IUnit/L 45-117 [id number] 01:14:00* Test Item Value Reference Range Interpretation Comments LIPASE (test code = LIP) U/L 73.0-393.0 [id number] 01:14:00* Test Item Value Reference Range Interpretation Comments TROPONIN-I (test code = TROPI) ng/mL 0-0.045 B-TYPE NATRIURETIC [id number] 00:16:00* Test Item Value Reference Range Interpretation Comments B-TYPE NATRIURETIC PEPTIDE (test code = BNP) 43.43 pgram/mL 0-100 N PROTHROMBIN [id number] 23:21:00* Test Item Value Reference Range Interpretation [...] (2.5-3.5) IS PATIENT ON ANTICOAGULANTS? NTHROMBOPLASTIN TIME [id number] 23:21:00* Test Item Value Reference Range Interpretation Comments THROMBOPLASTIN TIME PARTIAL (test code = PTT) 28.8 seconds 25.0-36. 5 N IS PATIENT ON ANTICOAGULANTS? NCBC W/O [id number] 23:12:00* Test Item Value Reference Range Interpretation [...] fL 6.7-11.0 N - XR CHEST 1 [id number] 23:01:00 FAX: Amish Nur, Ashley: B St: [facility] FAX: Anastacio Burgess MD Name: KALYANI TALAVERA [facility] : 1955 Age/S: 64/F [address] [facility] Unit #: [id number] Loc: [place] [address] Phys: Anastacio Burgess MD Acct: [id number] Dis Date: Status: REG ER PHONE #: [phone] Exam Date: 06/07/2019 2250 FAX #: [phone] Reason: Abdominal Pain EXAMS: CPT CODE: [id number] XR CHEST 1 V 91196 EXAM: Chest x-ray, one view; INFORMATION: Vomiting; abdominal pain; FINDINGS: Increased densities of the left lung which may be due to edema or infiltrative changes. The right lung is slightly better aerated. Bilateral atelectatic changes. The heart is slightly enlarged. IMPRESSION: 1. Left pulmonary edema or possibly interstitial infiltrative changes and basilar atelectatic changes. 2. Mild cardiomegaly. Location code: [facility] at 2301 Reported and signed by: Jc Bravo M.D. CC: Lucille Nur MD; Anastacio Burgess MD Technologist: Marcelino Reid RT(R); SCOOBY PARSONS RT(R) Trnscrd Date/Time/By: 06/07/2019 (198) : By: Leanne GRW Orig Print D/T: S: 06/07/2019 (3270) PAGE 1 Signed Report - CT HEAD/BRAIN W/O [id number] 13:15:00 Name: KALYANI TALAVERA [facility] : 1955 Age/S: 64 / F [address] [facility] Unit #: [id number] Loc: [place] [address] Phys: Jessenia Be MD Acct: [id number] Dis Date: Status: REG ER PHONE #: [phone] Exam Date: 05/31/2019 1246 FAX #: [phone] Reason: pain, trauma EXAMS: CPT CODE: [id number] CT HEAD/BRAIN W/O CONT 80374 HISTORY: pain, trauma TECHNIQUE: Noncontrast 2.5 mm [...] (1315) t.SDR.RR31 Orig Print D/T: S: 05/31/2019 (7766) PAGE 1 Signed Report GLUBED 2019-05-31 12:02:00* Test Item Value Reference Range Interpretation Comments GLUBED (test code = GLUBED) 200 mg/dL 74-106 H Performed by certified first coat operator at [facility] [id number] 09:10:00* Test Item Value Reference Range Interpretation Comments GLUBED (test code = GLUBED) 83 mg/dL 74-106 N Performed by certified first coat operator at [facility] [id number] 11:47:00* Test Item Value Reference Range Interpretation Comments GLUBED (test code = GLUBED) 192 mg/dL 74-106 H Performed by certified first coat operator at [facility] [id number] 07:59:00* Test Item Value Reference Range Interpretation Comments GLUBED (test code = GLUBED) 164 mg/dL 74-106 H Performed by certified first coat operator at [facility] [id number] 21:14:00* Test Item Value Reference Range Interpretation Comments GLUBED (test code = GLUBED) 215 mg/dL 74-106 H Performed by certified first coat operator at [facility] [id number] 15:34:00* Test Item Value Reference Range Interpretation Comments GLUBED (test code = GLUBED) 130 mg/dL 74-106 H Performed by certified first coat operator at [facility] [id number] 12:10:00* Test Item Value Reference Range Interpretation Comments GLUBED (test code = GLUBED) 231 mg/dL 74-106 H Performed by certified first coat operator at [facility] [id number] 08:38:00* Test Item Value Reference Range Interpretation Comments GLUBED (test code = GLUBED) 173 mg/dL 74-106 H Performed by certified first coat operator at [facility] [id number] 20:39:00* Test Item Value Reference Range Interpretation Comments GLUBED (test code = GLUBED) 129 mg/dL 74-106 H Performed by certified first coat operator at [facility]2019-10-30 16:16:00* Test Item Value Reference Range Interpretation Comments GLUBED (test code = GLUBED) 337 mg/dL 74-106 H Performed by certified first coat operator at [facility]2019-10-30 12:15:00* Test Item Value Reference Range Interpretation Comments GLUBED (test code = GLUBED) 247 mg/dL 74-106 H Performed by certified first coat operator at [facility] [id number] 08:03:00* Test Item Value Reference Range Interpretation Comments GLUBED (test code = GLUBED) 170 mg/dL 74-106 H Performed by certified first coat operator at [facility] [id number] 20:11:00* Test Item Value Reference Range Interpretation Comments GLUBED (test code = GLUBED) 244 mg/dL 74-106 H Performed by certified first coat operator at [facility] [id number] 17:36:00* Test Item Value Reference Range Interpretation Comments GLUBED (test code = GLUBED) 238 mg/dL 74-106 H Performed by certified first coat operator at [facility] [id number] 16:06:00* Test Item Value Reference Range Interpretation Comments GLUBED (test code = GLUBED) 196 mg/dL 74-106 H Performed by certified first coat operator at [facility] [id number] 12:42:00* Test Item Value Reference Range Interpretation Comments GLUBED (test code = GLUBED) 292 mg/dL 74-106 H Performed by certified first coat operator at [facility] [id number] 09:09:00* Test Item Value Reference Range Interpretation Comments GLUBED (test code = GLUBED) 196 mg/dL 74-106 H Performed by certified first coat operator at [facility] [id number] 20:30:00* Test Item Value Reference Range Interpretation Comments GLUBED (test code = GLUBED) 213 mg/dL 74-106 H Performed by certified first coat operator at [facility] [id number] 18:23:00* Test Item Value Reference Range Interpretation Comments GLUBED (test code = GLUBED) 102 mg/dL 74-106 N Performed by certified first coat operator at [facility] [id number] 17:02:00* Test Item Value Reference Range Interpretation Comments GLUBED (test code = GLUBED) 181 mg/dL 74-106 H Performed by certified first coat operator at [facility] BASIC METABOLIC [id number] 15:17:00* Test Item Value Reference Range Interpretation [...] CA) 9.3 mg/dL 8.5-10.1 N BASIC METABOLIC [id number] 15:08:00* Test Item Value Reference Range Interpretation [...] CALCIUM (test code = CA) mg/dL 8.5-10.1 [id number] 12:53:00* Test Item Value Reference Range Interpretation Comments GLUBED (test code = GLUBED) 262 mg/dL 74-106 H Performed by certified first coat operator at [facility] [id number] 08:22:00* Test Item Value Reference Range Interpretation Comments GLUBED (test code = GLUBED) 198 mg/dL 74-106 H Performed by certified first coat operator at [facility] CBC W/AUTO [id number] 06:43:00* Test Item Value Reference Range Interpretation [...] = MDIFF) NO, ONLY SCAN NEEDED DIFFERENTIAL [id number] 06:43:00* Test Item Value Reference Range Interpretation Comments STAIN ACCEPTABILITY (test code = STN ACCEPTABLE) STAIN ACCEPTABLE MORPHOLOGY COMMENT (test code = MOC) NORMAL PLATELET ESTIMATE (test code = PLTEST) ADEQUATE PLATELET MORPHOLOGY (test code = PLTMORPH) NORMAL COMPREHENSIVE METABOLIC [id number] 05:19:00* Test Item Value Reference Range Interpretation [...] due to change in reagent. COMPREHENSIVE METABOLIC [id number] 05:11:00* Test Item Value Reference Range Interpretation [...] code = ALKP) IUnit/L 45-117 CBC W/AUTO [id number] 04:49:00* Test Item Value Reference Range Interpretation [...] = MDIFF) NO, ONLY SCAN NEEDED DIFFERENTIAL [id number] 04:49:00* Test Item Value Reference Range Interpretation Comments STAIN ACCEPTABILITY (test code = STN ACCEPTABLE) CABOT RINGS (test code = CAB) MORPHOLOGY COMMENT (test code = MOC) PLATELET ESTIMATE (test code = PLTEST) PLATELET MORPHOLOGY (test code = PLTMORPH) CBC W/AUTO [id number] 04:49:00* Test Item Value Reference Range Interpretation [...] = MDIFF) NO, ONLY SCAN NEEDED DIFFERENTIAL [id number] 04:49:00* Test Item Value Reference Range Interpretation Comments STAIN ACCEPTABILITY (test code = STN ACCEPTABLE) CABOT RINGS (test code = CAB) MORPHOLOGY COMMENT (test code = MOC) PLATELET ESTIMATE (test code = PLTEST) PLATELET MORPHOLOGY (test code = PLTMORPH) CBC W/AUTO [id number] 04:49:00* Test Item Value Reference Range Interpretation [...] = MDIFF) NO, ONLY SCAN NEEDED DIFFERENTIAL [id number] 04:49:00* Test Item Value Reference Range Interpretation Comments STAIN ACCEPTABILITY (test code = STN ACCEPTABLE) MORPHOLOGY COMMENT (test code = MOC) PLATELET ESTIMATE (test code = PLTEST) PLATELET MORPHOLOGY (test code = PLTMORPH) CBC W/AUTO [id number] 04:49:00* Test Item Value Reference Range Interpretation [...] = MDIFF) NO, ONLY SCAN NEEDED DIFFERENTIAL [id number] 04:49:00* Test Item Value Reference Range Interpretation Comments STAIN ACCEPTABILITY (test code = STN ACCEPTABLE) CABOT RINGS (test code = CAB) MORPHOLOGY COMMENT (test code = MOC) PLATELET ESTIMATE (test code = PLTEST) PLATELET MORPHOLOGY (test code = PLTMORPH) [id number] 21:00:00* Test Item Value Reference Range Interpretation Comments GLUBED (test code = GLUBED) 245 mg/dL 74-106 H Performed by certified first coat operator at [facility] [id number] 17:03:00* Test Item Value Reference Range Interpretation Comments GLUBED (test code = GLUBED) 110 mg/dL 74-106 H Performed by certified first coat operator at [facility] [id number] 13:56:00* Test Item Value Reference Range Interpretation Comments MAGNESIUM (test code = MAG) 2.4 mg/dL 1.8-2.4 N [id number] 11:32:00* Test Item Value Reference Range Interpretation Comments GLUBED (test code = GLUBED) 327 mg/dL 74-106 H Performed by certified first coat operator at [facility] [id number] 07:46:00* Test Item Value Reference Range Interpretation Comments GLUBED (test code = GLUBED) 294 mg/dL 74-106 H Performed by certified first coat operator at [facility] COMPREHENSIVE METABOLIC [id number] 05:18:00* Test Item Value Reference Range Interpretation [...] result is a direct measurement.========= THYROID STIMULATING [id number] 05:18:00* Test Item Value Reference Range Interpretation Comments THYROID STIMULATING HORMONE (test code = TSH) 2.610 uIU/mL 0.36-3.7 4 N TSH REFERENCE RANGES: EUTHYROID: 0.35 - 4.3 mIU/mL HYPO : > 5.5 mIU/mL HYPER : < 0.35 mIU/mL [id number] 05:18:00* Test Item Value Reference Range Interpretation Comments GLYCOSYLATED HEMOGLOBIN (HA1C) (test code = GLYHGB) 9.0 % HbA1 4. 8-6.0 H ESTIMATED AVERAGE GLUCOSE (test code = EAG) 212 MG/DL CBC W/AUTO [id number] 04:33:00* Test Item Value Reference Range Interpretation [...] code = BA#) K/mm3 0.0-0.2 CBC W/AUTO [id number] 04:33:00* Test Item Value Reference Range Interpretation [...] code = NRBC#) 0.00 K/mm3 0.0-0.1 N [id number] 20:34:00* Test Item Value Reference Range Interpretation Comments GLUBED (test code = GLUBED) 106 mg/dL 74-106 N Performed by certified first coat operator at [facility] [id number] 16:44:00* Test Item Value Reference Range Interpretation Comments GLUBED (test code = GLUBED) 290 mg/dL 74-106 H Performed by certified first coat operator at [facility] [id number] 16:44:00* Test Item Value Reference Range Interpretation Comments GLUBED (test code = GLUBED) 276 mg/dL 74-106 H Performed by certified first coat operator at [facility] T4 [id number] 16:31:00* Test Item Value Reference Range Interpretation Comments T4 FREE (test code = T4F) 1.06 ng/dL 0.76-1.46 N THYROID STIMULATING [id number] 16:31:00* Test Item Value Reference Range Interpretation Comments THYROID STIMULATING HORMONE (test code = TSH) 0.871 uIU/mL 0.36-3.7 4 N TSH REFERENCE RANGES: EUTHYROID: 0.35 - 4.3 mIU/mL HYPO : > 5.5 mIU/mL HYPER : < 0.35 mIU/mL [id number] 16:30:00* Test Item Value Reference Range Interpretation Comments GLYCOSYLATED HEMOGLOBIN (HA1C) (test code = GLYHGB) 9.8 % HbA1 4. 8-6.0 H ESTIMATED AVERAGE GLUCOSE (test code = EAG) 235 MG/DL [id number] 12:28:00* Test Item Value Reference Range Interpretation Comments GLUBED (test code = GLUBED) 282 mg/dL 74-106 H Performed by certified first coat operator at [facility] [id number] 11:21:00* Test Item Value Reference Range Interpretation Comments MAGNESIUM (test code = MAG) 2.3 mg/dL 1.8-2.4 N [id number] 10:04:00* Test Item Value Reference Range Interpretation Comments TROPONIN-I (test code = TROPI) <0.015 ng/mL 0-0.045 N COMMENTS TO DATA RECOVERY PLANNER: COLLECT 3 HOURS AFTER PREVIOUS [id number] 04:34:00* Test Item Value Reference Range Interpretation Comments TROPONIN-I (test code = TROPI) <0.015 ng/mL 0-0.045 N COMMENTS TO DATA RECOVERY PLANNER: COLLECT 3 HOURS AFTER PREVIOUS [id number] 04:12:00* Test Item Value Reference Range Interpretation Comments GLUBED (test code = GLUBED) 257 mg/dL 74-106 H Performed by certified first coat operator at [facility] - CT CHEST W/O [id number] 23:57:00 Name: KALYANI TALAVERA [facility] : 1955 Age/S: 64 / F [address] [facility] Unit #: [id number] Loc: [place] [address] Phys: Leonora Goins MD Acct: [id number] Dis Date: Status: REG ER PHONE #: [phone] Exam Date: 05/17/2019 2320 FAX #: [phone] Reason: shortneess of breath, weakness EXAMS: CPT CODE: [id number] CT CHEST W/O CONTRAST 52565 LOCATION: Q15 HISTORY: 64-year-old female who presents [...] 1 Signed Report (CONTINUED) Name[facility] [place] [facility] 1955 Age/S: 64 / F [address] Unit #: [id number] Loc: [place] [address] Phys: Leonora Goins MD Acct: [id number] Dis Date: S tatus: REG ER PHONE #: [phone] Exam Da te: 05/17/2019 2320 FAX #: [phone] Reason: shortn eess of breath, weakness EXAMS: CPT CODE: [id number] CT CHEST W/O CONTRAST 35958 <Continued> CC: Lucille Nur MD; Leonora Goins MD Technologist:JORDEN MERCADO, RT CTDI: DLP: Trnscb Date/Time: 05/17/2019 (5617) t.NADIAR.RLA2 Orig Print D/T: S: 05/18/2019 (0000) PAGE 2 Signed Report [id number] 22:38:00* Test Item Value Reference Range Interpretation Comments GLUBED (test code = GLUBED) 373 mg/dL 74-106 H Performed by certified first coat operator at [facility] [id number] 22:38:00* Test Item Value Reference Range Interpretation Comments GLUBED (test code = GLUBED) 422 mg/dL 74-106 H Performed by certified first coat operator at [facility] - CT HEAD/BRAIN W/O [id number] 22:09:00 Name: KALYANI TALAVERA [facility] : 1955 Age/S: 64 / F [address] Unit #: [id number] Loc: [place] [address] Phys: Leonora Goins MD Acct: [id number] Dis Date: Status: REG ER PHONE #: [phone] Exam Date: 05/17/2019 211 FAX #: [phone] Reason: weakness EXAMS: CPT CODE: [id number] CT HEAD/BRAIN W/O CONT 55279 HISTORY: weakness TECHNIQUE: Noncontrast 2.5 mm axial [...] process or change from prior exam. Location: [facility] at 2209 Reported and signed by: Dago Goodson MD CC: Chris Nur MD; Leonora Goins MD Technologist:RT SOTO(R) CT CTDI: DLP: Trnscb Date/Time: 05/17/2019 (2208) t.SDR.RR31 Orig Print D/T: S: 05/17/2019 (2211) PAGE 1 Signed Report BASIC METABOLIC [id number] 22:03:00* Test Item Value Reference Range Interpretation [...] CA) 8.6 mg/dL 8.5-10.1 N HEPATIC FUNCTION [id number] 22:03:00* Test Item Value Reference Range Interpretation [...] reference range due to change in reagent. [id number] 22:03:00* Test Item Value Reference Range Interpretation Comments LIPASE (test code = LIP) 105 U/L 73.0-393.0 N [id number] 22:03:00* Test Item Value Reference Range Interpretation Comments TROPONIN-I (test code = TROPI) <0.015 ng/mL 0-0.045 N - XR CHEST 1 [id number] 22:01:00 FAX: Amish Nur Si [phone] Ashley: B St: REG FAX: Leonora Norton [phone] Name: KALYANI TALAVERA [facility] : 1955 Age/S: 64/F [address] Unit #: [id number] Loc: [place] [address] Phys: Leonora Goins MD Acct: [id number] Dis Date: Status: REG ER PHONE #: [phone] Exam Date: 05/17/2019 2110 FAX #: [phone] Reason: WEAKNESS EXAMS: CPT CODE: [id number] XR CHEST 1 V 71125 REASON FOR EXAM: WEAKNESS Exam Order Date: [...] be secondary to diminished lung volumes. Location: [facility] at 2201 Reported and signed by: Dago Goodson MD CC: Lucille Land MD; Leonora Goins MD Technologist: EZEQUIEL CHAPA RT Trnscrd Date/Time/By: 05/17/2019 (2200) : By: Jaylan.RR31 Orig Print D/T: S: 05/17/2019 (2203) PAGE 1 Signed Report URINALYSIS [id number] 21:54:00* Test Item Value Reference Range Interpretation [...] #/HPF NONE Urine Source? Clean CatchBASIC METABOLIC [id number] 21:42:00* Test Item Value Reference Range Interpretation [...] code = CA) mg/dL 8.5-10.1 HEPATIC FUNCTION [id number] 21:42:00* Test Item Value Reference Range Interpretation [...] TOTAL (test code = ALKP) IUnit/L 45-117 [id number] 21:42:00* Test Item Value Reference Range Interpretation Comments LIPASE (test code = LIP) U/L 73.0-393.0 [id number] 21:42:00* Test Item Value Reference Range Interpretation Comments TROPONIN-I (test code = TROPI) ng/mL 0-0.045 CBC W/O [id number] 21:33:00* Test Item Value Reference Range Interpretation [...] code = MPV) 10.9 fL 6.7-11.0 N [id number] 02:14:00* Test Item Value Reference Range Interpretation Comments GLUBED (test code = GLUBED) 359 mg/dL 74-106 H Performed by certified first coat operator at [facility] [id number] 01:04:00* Test Item Value Reference Range Interpretation Comments GLUBED (test code = GLUBED) 484 mg/dL 74-106 H Performed by certified first coat operator at [facility] URINALYSIS [id number] 00:11:00* Test Item Value Reference Range Interpretation [...] per HPF NONE Urine Source? Clean CatchURINALYSIS [id number] 00:07:00* Test Item Value Reference Range Interpretation [...] HPF NONE Urine Source? Clean CatchBASIC METABOLIC [id number] 23:16:00* Test Item Value Reference Range Interpretation [...] CA) 8.6 mg/dL 8.5-10.1 N HEPATIC FUNCTION [id number] 23:16:00* Test Item Value Reference Range Interpretation [...] reference range due to change in reagent. [id number] 23:16:00* Test Item Value Reference Range Interpretation Comments TROPONIN-I (test code = TROPI) <0.015 ng/mL 0-0.045 N BASIC METABOLIC [id number] 22:52:00* Test Item Value Reference Range Interpretation [...] code = CA) mg/dL 8.5-10.1 HEPATIC FUNCTION [id number] 22:52:00* Test Item Value Reference Range Interpretation [...] TOTAL (test code = ALKP) IUnit/L 45-117 [id number] 22:52:00* Test Item Value Reference Range Interpretation Comments TROPONIN-I (test code = TROPI) ng/mL 0-0.045 - CT HEAD/BRAIN W/O [id number] 22:44:00 Name: KALYANI TALAVERA [facility] : 1955 Age/S: 64 / F [address] Unit #: [id number] Loc: [facility] [place] [address] Phys: Vince Jones DO Acct: [id number] Dis Date: Status: REG ER PHONE #: [phone] Exam Date: 04/30/20192231 FAX #: [phone] Reason: headache/blurry vision EXAMS: CPT CODE: [id number] CT HEAD/BRAIN W/O CONT 01598 HISTORY: headache/blurry vision TECHNIQUE: Noncontrast 2.5 mm [...] Chavez CTDI: DL P: Trnscb Date/Time: 04/30/2019 (2248) GeovaniR.RR31 O rig Print D/T: S: 04/30/2019 (2714) PAGE 1 Signed Re port CBC W/AUTO [id number] 22:43:00* Test Item Value Reference Range Interpretation [...] DIFF REQUIRED (test code = MDIFF) NO [id number] 22:16:00* Test Item Value Reference Range Interpretation Comments GLUBED (test code = GLUBED) > 500 mg/dL 74-106 HH [facility]~ KNEE RIGHT THREE [id number] 04:11:00 [place] [address] Patient Name: KALYANI TALAVERA MR #: [id number] : 1955 Age/Sex: 64/F Req #: [id number] Adm Physician: Ordered by: JACQUES JANE MD [...] 04/27/19411 COPY TO: JACQUES JANE MD Bedside [id number] 04:02:00* Test Item Value Reference Range Interpretation Comments Bedside Glucose (test code = 98707-3) 387 70-120 H Meter ID: [id number] [facility] Glucose 2019-04-18 04:02:00* Test Item Value Reference Range Interpretation Comments Bedside Glucose (test code = 47083-7) 387 70-120 H Meter ID: [id number] [facility] Glucose 2019-03-15 03:09:00* Test Item Value Reference Range Interpretation Comments Bedside Glucose (test code = 52070-7) 272 70-120 H Meter ID: [id number] [facility] Glucose 2019-03-15 03:09:00* Test Item Value Reference Range Interpretation Comments Bedside Glucose (test code = 87423-5) 272 70-120 H Meter ID: [id number] [facility]15 03:03:00 [place] [address] Patient Name: KALYANI TALAVERA MR #: [id number] : 1955 Age/Sex: 64/F Req #: [id number] Adm Physician: Ordered by: JACQUES JANE MD Report #: [id number] Location: ER Room/Bed: Procedure: 082300 06 DX/CHEST SINGLE (PORTABLE) Exam Date: 03/15/19 [...] 3:14 AM Dictated By: BRADLEY HARVEY DO Tr anscribed By: JIM on 03/15/19313 COPY TO: JACQUES JANE MD Sodium [id number] 02:29:00* Test Item Value Reference Range Interpretation Comments Sodium Level (test code = 2951-2) 134 136-[address] [facility] [id number] 02:29:00* Test Item Value Reference Range Interpretation Comments Potassium Level (test code = 2823-3) 4.2 3.5-5.[address] [facility] HospitalChloride [id number] 02:29:00* Test Item Value Reference Range Interpretation Comments Chloride Level (test code = 2075-0) 99 98-[address] [facility] [facility] HospitalCarbon Dioxide Ivmsq6065-12-36 02:29:00* Test Item Value Reference Range Interpretation Comments Carbon Dioxide Level (test code = 2028-9) 25 22-[address] [facility] HospitalAnion [id number] 02:29:00* Test Item Value Reference Range Interpretation Comments Anion Gap (test code = 06169-2) 14.2 8-[address] [facility] HospitalBlood Urea Mirleyva5485-55-50 02:29:00* Test Item Value Reference Range Interpretation Comments Blood Urea Nitrogen (test code = 3094-0) 26 7-[address] [facility] HospitalCreatinine2019-08-23 02:29:00* Test Item Value Reference Range Interpretation Comments Creatinine (test code = 2160-0) 1.11 0.57-1.[address] [facility] HospitalBUN/Creatinine [id number] 02:29:00* Test Item Value Reference Range Interpretation Comments BUN/Creatinine Ratio (test code = 3097-3) 6- [facility] HospitalEstimat Glomerular Filtration Rate 2019-03-15 02:29:00* Test Item Value Reference Range Interpretation Comments Estimat Glomerular Filtration Rate (test code = 622044936) 50 >60 L Ranges were taken from the National Kid[employer] Disease Education Program and the [facility] [facility] literature.Reference ranges:60 or greater: [id number] ( for 3 consecutive months): Chronic kidney disease 15 or less: [address] HospitalGlucose Mghyi9257-48-66 02:29:00* Test Item Value Reference Range Interpretation Comments Glucose Level (test code = ODB9108) 559 74-118 Results repeated and called to THELMA DONALDSON RN at 0229 on 03/15/19 by Francoise Proctor. Read back and verified.[facility] HospitalCalcium Cwrkc4455-84-54 02:29:00* Test Item Value Reference Range Interpretation Comments Calcium Level (test code = 23885-1) 8.8 8.4-10.2 [facility] Centerodium Jkrsw4249-56-90 02:29:00* Test Item Value Reference Range Interpretation Comments Sodium Level (test code = 2951-2) 134 136-[address] [facility] HospitalPotassium Qjneo2789-88-34 02:29:00* Test Item Value Reference Range Interpretation Comments Potassium Level (test code = 2823-3) 4.2 3.5-5.[address] [facility] HospitalChloride Stkej9977-99-20 02:29:00* Test Item Value Reference Range Interpretation Comments Chloride Level (test code = 2075-0) 99 98-[address] [facility] HospitalCarbon Dioxide Rmlba8599-51-64 02:29:00* Test Item Value Reference Range Interpretation Comments Carbon Dioxide Level (test code = 2028-9) 25 - [facility] HospitalAnion Cam7700-34-53 02:29:00* Test Item Value Reference Range Interpretation Comments Anion Gap (test code = 41949-0) 14.2 8-[address] [facility] HospitalBlood Urea Sfyfuupr6412-75-02 02:29:00* Test Item Value Reference Range Interpretation Comments Blood Urea Nitrogen (test code = 3094-0) 26 7- [facility] HospitalCreatinine2019-08-23 02:29:00* Test Item Value Reference Range Interpretation Comments Creatinine (test code = 2160-0) 1.11 0.57-1.[address] [facility] HospitalBUN/Creatinine Jtiik3061-51-96 02:29:00* Test Item Value Reference Range Interpretation Comments BUN/Creatinine Ratio (test code = 3097-3) 13 01- [facility] HospitalEstimat Glomerular Filtration Rate 2019-03-15 02:29:00* Test Item Value Reference Range Interpretation Comments Estimat Glomerular Filtration Rate (test code = 745129514) 50 >60 L Ranges were taken from the National Kidney Disease Education Program and the [facility] literature.Reference ranges:60 or greater: Imnrdx95-43 ( for 3 consecutive months): Chronic kidney disease 15 or less: Kidney failureCH[facility] HospitalGlucose Cgrtx9151-30-53 02:29:00* Test Item Value Reference Range Interpretation Comments Glucose Level (test code = ERZ8008) 559 74-118 Results repeated and called to THELMA DONALDSON RN at 0229 on 03/15/19 by Francoise Proctor. Read back and verified.[facility] HospitalCalcium Uoxav3914-82-38 02:29:00* Test Item Value Reference Range Interpretation Comments Calcium Level (test code = 31963-4) 8.8 8.4-10.2 [facility] Centerodium Ofdeh1381-52-77 02:29:00* Test Item Value Reference Range Interpretation Comments Sodium Level (test code = 2951-2) 134 136-[address] [facility] HospitalPotassium Pvmcm3289-00-67 02:29:00* Test Item Value Reference Range Interpretation Comments Potassium Level (test code = 2823-3) 4.2 3.5-5.[address] [facility] HospitalChloride Qgpvf5684-15-48 02:29:00* Test Item Value Reference Range Interpretation Comments Chloride Level (test code = 2075-0) 99 98-[address] [facility] HospitalCarbon Dioxide Abhjs9847-23-21 02:29:00* Test Item Value Reference Range Interpretation Comments Carbon Dioxide Level (test code = 2028-9) 25 22-[address] [facility] HospitalAnion Epd3146-54-89 02:29:00* Test Item Value Reference Range Interpretation Comments Anion Gap (test code = 82049-9) 14.2 8-[address] [facility] HospitalBlood Urea Ccaafjhu1980-75-77 02:29:00* Test Item Value Reference Range Interpretation Comments Blood Urea Nitrogen (test code = 3094-0) 26 7-[address] [facility] HospitalCreatinine2019-08-23 02:29:00* Test Item Value Reference Range Interpretation Comments Creatinine (test code = 2160-0) 1.11 0.57-1.[address] [facility] HospitalBUN/Creatinine Ykorz9369-15-60 02:29:00* Test Item Value Reference Range Interpretation Comments BUN/Creatinine Ratio (test code = 3097-3) 23 6-[address] [facility] HospitalEstimat Glomerular Filtration Rate 2019-03-15 02:29:00* Test Item Value Reference Range Interpretation Comments Estimat Glomerular Filtration Rate (test code = 121768272) 50 >60 L Ranges were taken from the National Kidney Disease Education Program and the [facility] literature.Reference ranges:60 or greater: Wuuztw63-16 ( for 3 consecutive months): Chronic kidney disease 15 or less: Kidney failureCH[facility] HospitalGlucose Jbelj0941-99-09 02:29:00* Test Item Value Reference Range Interpretation Comments Glucose Level (test code = XAD2752) 270 80-437 Results repeated and called to THELMA DONALDSON RN at 0229 on 03/15/19 by Francoise Proctor. Read back and verified.[facility] HospitalCalcium Wcsyj5636-56-57 02:29:00* Test Item Value Reference Range Interpretation Comments Calcium Level (test code = 83610-0) 8.8 8.4-10.2 [facility] Centerodium Iytxx2935-31-51 02:29:00* Test Item Value Reference Range Interpretation Comments Sodium Level (test code = 2951-2) 134 136-[address] [facility] HospitalPotassium Ydiyd1994-30-13 02:29:00* Test Item Value Reference Range Interpretation Comments Potassium Level (test code = 2823-3) 4.2 3.5-5.[address] [facility] HospitalChloride Idvrd0608-58-15 02:29:00* Test Item Value Reference Range Interpretation Comments Chloride Level (test code = 2075-0) 99 98-[address] [facility] HospitalCarbon Dioxide Byrsf6250-39-35 02:29:00* Test Item Value Reference Range Interpretation Comments Carbon Dioxide Level (test code = 2028-9) 25 22-[address] [facility] HospitalAnion Rfr6569-32-28 02:29:00* Test Item Value Reference Range Interpretation Comments Anion Gap (test code = 63440-7) 14.2 8-[address] [facility] HospitalBlood Urea Zgydlosz2189-81-76 02:29:00* Test Item Value Reference Range Interpretation Comments Blood Urea Nitrogen (test code = 3094-0) 26 7-[address] HospitalCreatinine2019-08-23 02:29:00* Test Item Value Reference Range Interpretation Comments Creatinine (test code = 2160-0) 1.11 0.57-1.[address] [facility] HospitalBUN/Creatinine Vwchg6130-00-97 02:29:00* Test Item Value Reference Range Interpretation Comments BUN/Creatinine Ratio (test code = 3097-3) 23 6-[address] [facility] HospitalEstimat Glomerular Filtration Rate 2019-03-15 02:29:00* Test Item Value Reference Range Interpretation Comments Estimat Glomerular Filtration Rate (test code = 537572418) 50 >60 L Ranges were taken from the National Kidney Disease Education Program and the [facility] literature.Reference ranges:60 or greater: Bjures97-28 ( for 3 consecutive months): Chronic kidney disease 15 or less: Kidney failureCH[facility] HospitalGlucose Dzzfu7086-01-47 02:29:00* Test Item Value Reference Range Interpretation Comments Glucose Level (test code = WPG4743) 336 74118 HH Results repeated and called to THELMA DONALDSON RN at 0229 on 03/15/19 by Francoise Proctor. Read back and verified.[facility] HospitalCalcium Ztyzm2977-89-60 02:29:00* Test Item Value Reference Range Interpretation Comments Calcium Level (test code = 73353-0) 8.8 8.4-10.[address] [facility] HospitalWhite Blood Bbvfu0078-95-92 02:16:00* Test Item Value Reference Range Interpretation Comments White Blood Count (test code = 6690-2) 5.52 4.8-10.[address] [facility] HospitalRed Blood Zploy2654-41-93 02:16:00* Test Item Value Reference Range Interpretation Comments Red Blood Count (test code = 789-8) 4.47 3.6-5.[address] [facility] HospitalHemoglobin2019-08-23 02:16:00* Test Item Value Reference Range Interpretation Comments Hemoglobin (test code = 33792-4) 11.3 12.0-16.[address] HospitalHematocrit2019-08-23 02:16:00* Test Item Value Reference Range Interpretation Comments Hematocrit (test code = 4544-3) 38.1 34.2-44.[address] [facility] HospitalMean Corpuscular Zyaglg0846-05-75 02:16:00* Test Item Value Reference Range Interpretation Comments Mean Corpuscular Volume (test code = 787-2) 85.2 81-[address] [facility] HospitalMean Corpuscular Rtpvqzcley5353-57-28 02:16:00* Test Item Value Reference Range Interpretation Comments Mean Corpuscular Hemoglobin (test code = 785-6) 25.3 28-[address] [facility] HospitalMean Corpuscular Hemoglobin Concent 2019-03-15 02:16:00* Test Item Value Reference Range Interpretation Comments Mean Corpuscular Hemoglobin Concent (test code = 786-4) 29.7 31-[address] [facility] HospitalRed Cell Distribution Mnvsw5571-20-63 02:16:00* Test Item Value Reference Range Interpretation Comments Red Cell Distribution Width (test code = 38460-7) 16.0 11.7 -14.[address] [facility] HospitalPlatelet Nnchl4255-91-52 02:16:00* Test Item Value Reference Range Interpretation Comments Platelet Count (test code = 777-3) 175 140-[address] [facility] HospitalNeutrophils (%) (Auto)2019-03-15 02:16:00 * Test Item Value Reference Range Interpretation Comments Neutrophils (%) (Auto) (test code = 08967-9) 71.8 38.7-80.[address] [facility] HospitalLymphocytes (%) (Auto)2019-03-15 02:16:00 * Test Item Value Reference Range Interpretation Comments Lymphocytes (%) (Auto) (test code = 736-9) 20.1 18.0-39.[address] HospitalMonocytes (%) (Auto)2019-03-15 02:16:00* Test Item Value Reference Range Interpretation Comments Monocytes (%) (Auto) (test code = 5905-5) 3.8 4.4-11.[address] [facility] HospitalEosinophils (%) (Auto)2019-03-15 02:16:00 * Test Item Value Reference Range Interpretation Comments Eosinophils (%) (Auto) (test code = 713-8) 1.8 0.0-6.[address] HospitalBasophils (%) (Auto)2019-03-15 02:16:00* Test Item Value Reference Range Interpretation Comments Basophils (%) (Auto) (test code = 706-2) 0.9 0.0-1.[address] HospitalIM GRANULOCYTES %2019-03-15 02:16:00* Test Item Value Reference Range Interpretation Comments IM GRANULOCYTES % (test code = IM GRANULOCYTES %) 1.6 0.0- 1.[address] [facility] HospitalNeutrophils # (Auto)2019-03-15 02:16:00* Test Item Value Reference Range Interpretation Comments Neutrophils # (Auto) (test code = 751-8) 4.0 2.1-6.[address] [facility] HospitalLymphocytes # (Auto)2019-03-15 02:16:00* Test Item Value Reference Range Interpretation Comments Lymphocytes # (Auto) (test code = 45767-5) 1.1 1.0-3.[address] [facility] HospitalMonocytes # (Auto)2019-03-15 02:16:00* Test Item Value Reference Range Interpretation Comments Monocytes # (Auto) (test code = 742-7) 0.2 0.2-0.[address] [facility] HospitalEosinophils # (Auto)2019-03-15 02:16:00* Test Item Value Reference Range Interpretation Comments Eosinophils # (Auto) (test code = 711-2) 0.1 0.0-0.[address] HospitalBasophils # (Auto)2019-03-15 02:16:00* Test Item Value Reference Range Interpretation Comments Basophils # (Auto) (test code = 704-7) 0.1 0.0-0.[address] [facility] HospitalAbsolute Immature Granulocyte (auto 2019-03-15 02:16:00* Test Item Value Reference Range Interpretation Comments Absolute Immature Granulocyte (auto (joseph t code = Absolute Immature Granulocyte (auto) 0.09 0-0.[address] [facility] HospitalWhite Blood Csgwa8674-50-21 02:16:00* Test Item Value Reference Range Interpretation Comments White Blood Count (test code = 6690-2) 5.52 4.8-10.[address] [facility] HospitalRed Blood Mljks2795-68-74 02:16:00* Test Item Value Reference Range Interpretation Comments Red Blood Count (test code = 789-8) 4.47 3.6-5.[address] HospitalHemoglobin2019-08-23 02:16:00* Test Item Value Reference Range Interpretation Comments Hemoglobin (test code = 12939-0) 11.3 12.0-16.[address] HospitalHematocrit2019-08-23 02:16:00* Test Item Value Reference Range Interpretation Comments Hematocrit (test code = 4544-3) 38.1 34.2-44.[address] [facility] HospitalMean Corpuscular Yfcrfp6532-56-34 02:16:00* Test Item Value Reference Range Interpretation Comments Mean Corpuscular Volume (test code = 787-2) 85.2 81-[address] HospitalMean Corpuscular Nucpjctryi1346-97-51 02:16:00* Test Item Value Reference Range Interpretation Comments Mean Corpuscular Hemoglobin (test code = 785-6) 25.3 28-[address] HospitalMean Corpuscular Hemoglobin Concent 2019-03-15 02:16:00* Test Item Value Reference Range Interpretation Comments Mean Corpuscular Hemoglobin Concent (test code = 786-4) 29.7 31-[address] [facility] HospitalRed Cell Distribution Puqjk4338-15-36 02:16:00* Test Item Value Reference Range Interpretation Comments Red Cell Distribution Width (test code = 27420-7) 16.0 11.7 -14.[address] [facility] HospitalPlatelet Oiqqs8200-69-52 02:16:00* Test Item Value Reference Range Interpretation Comments Platelet Count (test code = 777-3) 175 140-[address] [facility] [facility] HospitalNeutrophils (%) (Auto)2019-03-15 02:16:00 * Test Item Value Reference Range Interpretation Comments Neutrophils (%) (Auto) (test code = 67463-1) 71.8 38.7-80.[address] HospitalLymphocytes (%) (Auto)2019-03-15 02:16:00 * Test Item Value Reference Range Interpretation Comments Lymphocytes (%) (Auto) (test code = 736-9) 20.1 18.0-39.[address] [facility] HospitalMonocytes (%) (Auto)2019-03-15 02:16:00* Test Item Value Reference Range Interpretation Comments Monocytes (%) (Auto) (test code = 5905-5) 3.8 4.4-11.[address] [facility] HospitalEosinophils (%) (Auto)2019-03-15 02:16:00 * Test Item Value Reference Range Interpretation Comments Eosinophils (%) (Auto) (test code = 713-8) 1.8 0.0-6.[address] [facility] HospitalBasophils (%) (Auto)2019-03-15 02:16:00* Test Item Value Reference Range Interpretation Comments Basophils (%) (Auto) (test code = 706-2) 0.9 0.0-1.[address] [facility] HospitalIM GRANULOCYTES %2019-03-15 02:16:00* Test Item Value Reference Range Interpretation Comments IM GRANULOCYTES % (test code = IM GRANULOCYTES %) 1.6 0.0- 1.[address] [facility] HospitalNeutrophils # (Auto)2019-03-15 02:16:00* Test Item Value Reference Range Interpretation Comments Neutrophils # (Auto) (test code = 751-8) 4.0 2.1-6.[address] [facility] HospitalLymphocytes # (Auto)2019-03-15 02:16:00* Test Item Value Reference Range Interpretation Comments Lymphocytes # (Auto) (test code = 04054-9) 1.1 1.0-3.[address] HospitalMonocytes # (Auto)2019-03-15 02:16:00* Test Item Value Reference Range Interpretation Comments Monocytes # (Auto) (test code = 742-7) 0.2 0.2-0.[address] [facility] HospitalEosinophils # (Auto)2019-03-15 02:16:00* Test Item Value Reference Range Interpretation Comments Eosinophils # (Auto) (test code = 711-2) 0.1 0.0-0.[address] [facility] HospitalBasophils # (Auto)2019-03-15 02:16:00* Test Item Value Reference Range Interpretation Comments Basophils # (Auto) (test code = 704-7) 0.1 0.0-0.[address] [facility] HospitalAbsolute Immature Granulocyte (auto 2019-03-15 02:16:00* Test Item Value Reference Range Interpretation Comments Absolute Immature Granulocyte (auto (joseph t code = Absolute Immature Granulocyte (auto) 0.09 0-0.[address] [facility] HospitalWhite Blood Vedpu2659-76-62 02:16:00* Test Item Value Reference Range Interpretation Comments White Blood Count (test code = 6690-2) 5.52 4.8-10.[address] [facility] HospitalRed Blood Bpkzz4021-33-86 02:16:00* Test Item Value Reference Range Interpretation Comments Red Blood Count (test code = 789-8) 4.47 3.6-5.[address] HospitalHemoglobin2019-08-23 02:16:00* Test Item Value Reference Range Interpretation Comments Hemoglobin (test code = 87333-9) 11.3 12.0-16.[address] [facility] HospitalHematocrit2019-08-23 02:16:00* Test Item Value Reference Range Interpretation Comments Hematocrit (test code = 4544-3) 38.1 34.2-44.[address] [facility] HospitalMean Corpuscular Xgaqez7942-44-84 02:16:00* Test Item Value Reference Range Interpretation Comments Mean Corpuscular Volume (test code = 787-2) 85.2 81-[address] [facility] HospitalMean Corpuscular Paoyczmbrx4649-26-69 02:16:00* Test Item Value Reference Range Interpretation Comments Mean Corpuscular Hemoglobin (test code = 785-6) 25.3 28-[address] [facility] HospitalMean Corpuscular Hemoglobin Concent 2019-03-15 02:16:00* Test Item Value Reference Range Interpretation Comments Mean Corpuscular Hemoglobin Concent (test code = 786-4) 29.7 31-[address] [facility] HospitalRed Cell Distribution Whxao5809-83-96 02:16:00* Test Item Value Reference Range Interpretation Comments Red Cell Distribution Width (test code = 18310-5) 16.0 11.7 -14.[address] [facility] HospitalPlatelet Rqrmm7487-78-33 02:16:00* Test Item Value Reference Range Interpretation Comments Platelet Count (test code = 777-3) 175 140-[address] [facility] [facility] HospitalNeutrophils (%) (Auto)2019-03-15 02:16:00 * Test Item Value Reference Range Interpretation Comments Neutrophils (%) (Auto) (test code = 97059-0) 71.8 38.7-80.[address] [facility] HospitalLymphocytes (%) (Auto)2019-03-15 02:16:00 * Test Item Value Reference Range Interpretation Comments Lymphocytes (%) (Auto) (test code = 736-9) 20.1 18.0-39.[address] [facility] HospitalMonocytes (%) (Auto)2019-03-15 02:16:00* Test Item Value Reference Range Interpretation Comments Monocytes (%) (Auto) (test code = 5905-5) 3.8 4.4-11.[address] [facility] HospitalEosinophils (%) (Auto)2019-03-15 02:16:00 * Test Item Value Reference Range Interpretation Comments Eosinophils (%) (Auto) (test code = 713-8) 1.8 0.0-6.[address] [facility] HospitalBasophils (%) (Auto)2019-03-15 02:16:00* Test Item Value Reference Range Interpretation Comments Basophils (%) (Auto) (test code = 706-2) 0.9 0.0-1.[address] [facility] HospitalIM GRANULOCYTES %2019-03-15 02:16:00* Test Item Value Reference Range Interpretation Comments IM GRANULOCYTES % (test code = IM GRANULOCYTES %) 1.6 0.0- 1.[address] [facility] HospitalNeutrophils # (Auto)2019-03-15 02:16:00* Test Item Value Reference Range Interpretation Comments Neutrophils # (Auto) (test code = 751-8) 4.0 2.1-6.[address] [facility] HospitalLymphocytes # (Auto)2019-03-15 02:16:00* Test Item Value Reference Range Interpretation Comments Lymphocytes # (Auto) (test code = 90224-3) 1.1 1.0-3.[address] [facility] HospitalMonocytes # (Auto)2019-03-15 02:16:00* Test Item Value Reference Range Interpretation Comments Monocytes # (Auto) (test code = 742-7) 0.2 0.2-0.[address] [facility] HospitalEosinophils # (Auto)2019-03-15 02:16:00* Test Item Value Reference Range Interpretation Comments Eosinophils # (Auto) (test code = 711-2) 0.1 0.0-0.[address] [facility] HospitalBasophils # (Auto)2019-03-15 02:16:00* Test Item Value Reference Range Interpretation Comments Basophils # (Auto) (test code = 704-7) 0.1 0.0-0.[address] [facility] HospitalAbsolute Immature Granulocyte (auto 2019-03-15 02:16:00* Test Item Value Reference Range Interpretation Comments Absolute Immature Granulocyte (auto (joseph t code = Absolute Immature Granulocyte (auto) 0.09 0-0.[address] [facility] HospitalWhite Blood Sueho6245-45-37 02:16:00* Test Item Value Reference Range Interpretation Comments White Blood Count (test code = 6690-2) 5.52 4.8-10.[address] [facility] HospitalRed Blood Htlly9645-88-27 02:16:00* Test Item Value Reference Range Interpretation Comments Red Blood Count (test code = 789-8) 4.47 3.6-5.[address] [facility] HospitalHemoglobin2019-08-23 02:16:00* Test Item Value Reference Range Interpretation Comments Hemoglobin (test code = 51839-6) 11.3 12.0-16.[address] [facility] HospitalHematocrit2019-08-23 02:16:00* Test Item Value Reference Range Interpretation Comments Hematocrit (test code = 4544-3) 38.1 34.2-44.[address] [facility] HospitalMean Corpuscular Rzjwmy0607-82-55 02:16:00* Test Item Value Reference Range Interpretation Comments Mean Corpuscular Volume (test code = 787-2) 85.2 81-[address] HospitalMean Corpuscular Veeracffjl5540-69-56 02:16:00* Test Item Value Reference Range Interpretation Comments Mean Corpuscular Hemoglobin (test code = 785-6) 25.3 28-32 L [facility] Corpuscular Hemoglobin Concent 2019-03-15 02:16:00* Test Item Value Reference Range Interpretation Comments Mean Corpuscular Hemoglobin Concent (test code = 786-4) 29.7 31-[address] [facility] HospitalRed Cell Distribution Dgass7573-39-88 02:16:00* Test Item Value Reference Range Interpretation Comments Red Cell Distribution Width (test code = 05970-2) 16.0 11.7 -14.[address] [facility] HospitalPlatelet Wykmb4723-36-35 02:16:00* Test Item Value Reference Range Interpretation Comments Platelet Count (test code = 777-3) 175 140-[address] [facility] HospitalNeutrophils (%) (Auto)2019-03-15 02:16:00 * Test Item Value Reference Range Interpretation Comments Neutrophils (%) (Auto) (test code = 83483-5) 71.8 38.7-80.[address] [facility] HospitalLymphocytes (%) (Auto)2019-03-15 02:16:00 * Test Item Value Reference Range Interpretation Comments Lymphocytes (%) (Auto) (test code = 736-9) 20.1 18.0-39.[address] [facility] HospitalMonocytes (%) (Auto)2019-03-15 02:16:00* Test Item Value Reference Range Interpretation Comments Monocytes (%) (Auto) (test code = 5905-5) 3.8 4.4-11.[address] [facility] HospitalEosinophils (%) (Auto)2019-03-15 02:16:00 * Test Item Value Reference Range Interpretation Comments Eosinophils (%) (Auto) (test code = 713-8) 1.8 0.0-6.[address] [facility] HospitalBasophils (%) (Auto)2019-03-15 02:16:00* Test Item Value Reference Range Interpretation Comments Basophils (%) (Auto) (test code = 706-2) 0.9 0.0-1.[address] [facility] HospitalIM GRANULOCYTES %2019-03-15 02:16:00* Test Item Value Reference Range Interpretation Comments IM GRANULOCYTES % (test code = IM GRANULOCYTES %) 1.6 0.0- 1.[address] HospitalNeutrophils # (Auto)2019-03-15 02:16:00* Test Item Value Reference Range Interpretation Comments Neutrophils # (Auto) (test code = 751-8) 4.0 2.1-6.[address] [facility] HospitalLymphocytes # (Auto)2019-03-15 02:16:00* Test Item Value Reference Range Interpretation Comments Lymphocytes # (Auto) (test code = 66687-3) 1.1 1.0-3.[address] [facility] [facility] HospitalMonocytes # (Auto)2019-03-15 02:16:00* Test Item Value Reference Range Interpretation Comments Monocytes # (Auto) (test code = 742-7) 0.2 0.2-0.[address] [facility] [facility] HospitalEosinophils # (Auto)2019-03-15 02:16:00* Test Item Value Reference Range Interpretation Comments Eosinophils # (Auto) (test code = 711-2) 0.1 0.0-0.[address] [facility] HospitalBasophils # (Auto)2019-03-15 02:16:00* Test Item Value Reference Range Interpretation Comments Basophils # (Auto) (test code = 704-7) 0.1 0.0-0.[address] [facility] HospitalAbsolute Immature Granulocyte (auto 2019-03-15 02:16:00* Test Item Value Reference Range Interpretation Comments Absolute Immature Granulocyte (auto (joseph t code = Absolute Immature Granulocyte (auto) 0.09 0-0.[address] [facility] HospitalBedside Jrbqpyl3873-34-44 05:15:00* Test Item Value Reference Range Interpretation Comments Bedside Glucose (test code = 28395-0) 329 70-120 H Meter ID: [id number] St[facility] HospitalFOREARM LEFT 2 VIEW 2019-02-24 01:23:00 [facility] [address] [address] Patient Name: KALYANI TALAVERA MR #: [id number] : 1955 Age/Sex: 63/F Req #: [id number] Adm Physician: Ordered by: JACQUES JANE MD Report #: [id number] Location: ER Room/Bed: Procedure: 43 DX/FOREARM LEFT [...] No acute radiographic abnormality. Signed by: Bradley Harevy DO o n 02/24/2019 1:24 AM Dictated By: BRADLEY HARVEY DO Electronically Christiane d By: BRADLEY HARVEY DO on 02/24/19123 Transcribed By: JIM on 02/24/19123 COPY TO: JACQUES JANE MD Sodium Yiojn9463-73-26 00:35:00* Test Item Value Reference Range Interpretation Comments Sodium Level (test code = 2951-2) 135 136-[address] [facility] HospitalPotassium Mmqxq4436-31-24 00:35:00* Test Item Value Reference Range Interpretation Comments Potassium Level (test code = 2823-3) 4.4 3.5-5.[address] [facility] HospitalChloride Xlzna8432-02-04 00:35:00* Test Item Value Reference Range Interpretation Comments Chloride Level (test code = 2075-0) 102 98-[address] [facility] HospitalCarbon Dioxide Vrgto6640-31-99 00:35:00* Test Item Value Reference Range Interpretation Comments Carbon Dioxide Level (test code = 2028-9) 21 22-[address] [facility] HospitalAnion Hml9341-01-82 00:35:00* Test Item Value Reference Range Interpretation Comments Anion Gap (test code = 45465-1) 16.4 8-[address] [facility] HospitalBlood Urea Pimvkovm0026-88-73 00:35:00* Test Item Value Reference Range Interpretation Comments Blood Urea Nitrogen (test code = 3094-0) 24 7-[address] [facility] HospitalCreatinine2019-08-04 00:35:00* Test Item Value Reference Range Interpretation Comments Creatinine (test code = 2160-0) 1.44 0.57-1.[address] [facility] HospitalBUN/Creatinine Pzpkl7626-85-99 00:35:00* Test Item Value Reference Range Interpretation Comments BUN/Creatinine Ratio (test code = 3097-3) 17 6-[address] [facility] HospitalEstimat Glomerular Filtration Rate 2019-02-24 00:35:00* Test Item Value Reference Range Interpretation Comments Estimat Glomerular Filtration Rate (test code = 734787173) 37 >60 L Ranges were taken from the National Kidney Disease Education Program and the [facility] literature.Reference ranges:60 or greater: Eywfhs32-93 ( for 3 consecutive months): Chronic kidney disease 15 or less: Kidney failureCHI St[facility] HospitalGlucose Hxzkf6533-61-49 00:35:00* Test Item Value Reference Range Interpretation Comments Glucose Level (test code = DFZ5979) 664 74118 Results repeated and called to SHILPA Jack at 0034 on 02/24/19 by Sagar Alegria. Malinda simpson back and verified.[facility] HospitalCalcium Level 2019-02-24 00:35:00* Test Item Value Reference Range Interpretation Comments Calcium Level (test code = 66088-7) 9.5 8.4-10.[address] [facility] HospitalTotal Peisxxpir0670-19-47 00:35:00* Test Item Value Reference Range Interpretation Comments Total Bilirubin (test code = 1975-2) 0.3 0.2-1.[address] HospitalAspartate Amino Transf (AST/SGOT) 2019-02-24 00:35:00* Test Item Value Reference Range Interpretation Comments Aspartate Amino Transf (AST/SGOT) (test code = Aspartate Amino Transf (AST/SGOT)) 12 5-[address] [facility] HospitalAlanine Aminotransferase (ALT/SGPT) 2019-02-24 00:35:00* Test Item Value Reference Range Interpretation Comments Alanine Aminotransferase (ALT/SGPT) (test code = 1742-6) 23 0-55 [facility] Qdobqcq3927-15-46 00:35:00* Test Item Value Reference Range Interpretation Comments Total Protein (test code = 2885-2) 6.7 6.5-8.[address] [facility] HospitalAlbumin2019-08-04 00:35:00* Test Item Value Reference Range Interpretation Comments Albumin (test code = 1751-7) 3.5 3.5-5.[address] HospitalGlobulin2019-08-04 00:35:00* Test Item Value Reference Range Interpretation Comments Globulin (test code = 28322-9) 3.2 2.3-3.[address] [facility] HospitalAlbumin/Globulin Npbpv3757-31-19 00:35:00 * Test Item Value Reference Range Interpretation Comments Albumin/Globulin Ratio (test code = 1759-0) 1.1 0.8-2.[address] [facility] HospitalAlkaline Nsyyaphhbkx3335-70-77 00:35:00* Test Item Value Reference Range Interpretation Comments Alkaline Phosphatase (test code = 6768-6) 82 40-[address] [facility] HospitalTotal Zqhjqilqs7694-81-28 00:35:00* Test Item Value Reference Range Interpretation Comments Total Bilirubin (test code = 1975-2) 0.3 0.2-1.[address] [facility] HospitalAspartate Amino Transf (AST/SGOT) 2019-02-24 00:35:00* Test Item Value Reference Range Interpretation Comments Aspartate Amino Transf (AST/SGOT) (test code = Aspartate Amino Transf (AST/SGOT)) 12 5-[address] [facility] HospitalAlanine Aminotransferase (ALT/SGPT) 2019-02-24 00:35:00* Test Item Value Reference Range Interpretation Comments Alanine Aminotransferase (ALT/SGPT) (test code = 1742-6) 23 0-55 [facility] Fjraeex9409-21-92 00:35:00* Test Item Value Reference Range Interpretation Comments Total Protein (test code = 2885-2) 6.7 6.5-8.[address] [facility] HospitalAlbumin2019-08-04 00:35:00* Test Item Value Reference Range Interpretation Comments Albumin (test code = 1751-7) 3.5 3.5-5.[address] HospitalGlobulin2019-08-04 00:35:00* Test Item Value Reference Range Interpretation Comments Globulin (test code = 10821-0) 3.2 2.3-3.[address] [facility] HospitalAlbumin/Globulin Vtegn9293-70-07 00:35:00 * Test Item Value Reference Range Interpretation Comments Albumin/Globulin Ratio (test code = 1759-0) 1.1 0.8-2.[address] [facility] HospitalAlkaline Grqydvoghwh4633-59-52 00:35:00* Test Item Value Reference Range Interpretation Comments Alkaline Phosphatase (test code = 6768-6) 82 40-[address] [facility] HospitalTotal Xcficslyp0103-43-97 00:35:00* Test Item Value Reference Range Interpretation Comments Total Bilirubin (test code = 1975-2) 0.3 0.2-1.[address] [facility] HospitalAspartate Amino Transf (AST/SGOT) 2019-02-24 00:35:00* Test Item Value Reference Range Interpretation Comments Aspartate Amino Transf (AST/SGOT) (test code = Aspartate Amino Transf (AST/SGOT)) [facility] HospitalAlanine Aminotransferase (ALT/SGPT) 2019-02-24 00:35:00* Test Item Value Reference Range Interpretation Comments Alanine Aminotransferase (ALT/SGPT) (test code = 1742-6) 23 0-[address] [facility] HospitalTotal Nspftce3032-73-00 00:35:00* Test Item Value Reference Range Interpretation Comments Total Protein (test code = 2885-2) 6.7 6.5-8.[address] [facility] HospitalAlbumin2019-08-04 00:35:00* Test Item Value Reference Range Interpretation Comments Albumin (test code = 1751-7) 3.5 3.5-5.[address] [facility] HospitalGlobulin2019-08-04 00:35:00* Test Item Value Reference Range Interpretation Comments Globulin (test code = 05911-2) 3.2 2.3-3.[address] [facility] HospitalAlbumin/Globulin Zkyln0550-52-54 00:35:00 * Test Item Value Reference Range Interpretation Comments Albumin/Globulin Ratio (test code = 1759-0) 1.1 0.8-2.[address] [facility] HospitalAlkaline Uxhophtnshx2849-73-88 00:35:00* Test Item Value Reference Range Interpretation Comments Alkaline Phosphatase (test code = 6768-6) 82 40-[address] [facility] HospitalTotal Ttxpeajvs5325-59-17 00:35:00* Test Item Value Reference Range Interpretation Comments Total Bilirubin (test code = 1975-2) 0.3 0.2-1.[address] [facility] HospitalAspartate Amino Transf (AST/SGOT) 2019-02-24 00:35:00* Test Item Value Reference Range Interpretation Comments Aspartate Amino Transf (AST/SGOT) (test code = Aspartate Amino Transf (AST/SGOT)) [facility] HospitalAlanine Aminotransferase (ALT/SGPT) 2019-02-24 00:35:00* Test Item Value Reference Range Interpretation Comments Alanine Aminotransferase (ALT/SGPT) (test code = 1742-6) 23 0-[address] [facility] HospitalTotal Vbblnux5917-37-57 00:35:00* Test Item Value Reference Range Interpretation Comments Total Protein (test code = 2885-2) 6.7 6.5-8.[address] HospitalAlbumin2019-08-04 00:35:00* Test Item Value Reference Range Interpretation Comments Albumin (test code = 1751-7) 3.5 3.5-5.[address] [facility] HospitalGlobulin2019-08-04 00:35:00* Test Item Value Reference Range Interpretation Comments Globulin (test code = 99404-1) 3.2 2.3-3.[address] [facility] HospitalAlbumin/Globulin Uipee2759-22-65 00:35:00 * Test Item Value Reference Range Interpretation Comments Albumin/Globulin Ratio (test code = 1759-0) 1.1 0.8-2.[address] [facility] HospitalAlkaline Slvhjojhsbb4260-72-25 00:35:00* Test Item Value Reference Range Interpretation Comments Alkaline Phosphatase (test code = 6768-6) 82 40-[address] [facility] HospitalTotal Gymjzgmcl0148-99-12 00:35:00* Test Item Value Reference Range Interpretation Comments Total Bilirubin (test code = 1975-2) 0.3 0.2-1.[address] [facility] HospitalAspartate Amino Transf (AST/SGOT) 2019-02-24 00:35:00* Test Item Value Reference Range Interpretation Comments Aspartate Amino Transf (AST/SGOT) (test code = Aspartate Amino Transf (AST/SGOT)) [facility] HospitalAlanine Aminotransferase (ALT/SGPT) 2019-02-24 00:35:00* Test Item Value Reference Range Interpretation Comments Alanine Aminotransferase (ALT/SGPT) (test code = 1742-6) 23 0-[address] [facility] HospitalTotal Saxekfo1299-82-30 00:35:00* Test Item Value Reference Range Interpretation Comments Total Protein (test code = 2885-2) 6.7 6.5-8.[address] HospitalAlbumin2019-08-04 00:35:00* Test Item Value Reference Range Interpretation Comments Albumin (test code = 1751-7) 3.5 3.5-5.[address] HospitalGlobulin2019-08-04 00:35:00* Test Item Value Reference Range Interpretation Comments Globulin (test code = 02721-1) 3.2 2.3-3.[address] [facility] HospitalAlbumin/Globulin Rjnwe3130-68-41 00:35:00 * Test Item Value Reference Range Interpretation Comments Albumin/Globulin Ratio (test code = 1759-0) 1.1 0.8-2.[address] [facility] HospitalAlkaline Hrewkrojrhj9230-11-05 00:35:00* Test Item Value Reference Range Interpretation Comments Alkaline Phosphatase (test code = 6768-6) 82 40-[address] [facility] HospitalWhite Blood Egrsm9708-33-90 00:18:00* Test Item Value Reference Range Interpretation Comments White Blood Count (test code = 6690-2) 5.09 4.8-10.[address] [facility] HospitalRed Blood Spzyi0291-04-92 00:18:00* Test Item Value Reference Range Interpretation Comments Red Blood Count (test code = 789-8) 4.64 3.6-5.[address] HospitalHemoglobin2019-08-04 00:18:00* Test Item Value Reference Range Interpretation Comments Hemoglobin (test code = 31088-2) 11.8 12.0-16.[address] [facility] HospitalHematocrit2019-08-04 00:18:00* Test Item Value Reference Range Interpretation Comments Hematocrit (test code = 4544-3) 37.6 34.2-44.[address] [facility] HospitalMean Corpuscular Rkvkwg4217-65-77 00:18:00* Test Item Value Reference Range Interpretation Comments Mean Corpuscular Volume (test code = 787-2) 81.0 81-[address] [facility] HospitalMean Corpuscular Dbvrpbkzqu5330-51-90 00:18:00* Test Item Value Reference Range Interpretation Comments Mean Corpuscular Hemoglobin (test code = 785-6) 25.4 28-[address] [facility] HospitalMean Corpuscular Hemoglobin Concent 2019-02-24 00:18:00* Test Item Value Reference Range Interpretation Comments Mean Corpuscular Hemoglobin Concent (test code = 786-4) 31.4 31-[address] [facility] HospitalRed Cell Distribution Mvvpe0626-35-73 00:18:00* Test Item Value Reference Range Interpretation Comments Red Cell Distribution Width (test code = 59659-0) 15.5 11.7 -14.[address] [facility] HospitalPlatelet Wzfaz7148-02-12 00:18:00* Test Item Value Reference Range Interpretation Comments Platelet Count (test code = 777-3) 155 140-[address] [facility] HospitalNeutrophils (%) (Auto)2019-02-24 00:18:00 * Test Item Value Reference Range Interpretation Comments Neutrophils (%) (Auto) (test code = 73242-1) 69.6 38.7-80.[address] HospitalLymphocytes (%) (Auto)2019-02-24 00:18:00 * Test Item Value Reference Range Interpretation Comments Lymphocytes (%) (Auto) (test code = 736-9) 20.0 18.0-39.[address] [facility] HospitalMonocytes (%) (Auto)2019-02-24 00:18:00* Test Item Value Reference Range Interpretation Comments Monocytes (%) (Auto) (test code = 5905-5) 5.1 4.4-11.[address] [facility] HospitalEosinophils (%) (Auto)2019-02-24 00:18:00 * Test Item Value Reference Range Interpretation Comments Eosinophils (%) (Auto) (test code = 713-8) 3.3 0.0-6.[address] [facility] HospitalBasophils (%) (Auto)2019-02-24 00:18:00* Test Item Value Reference Range Interpretation Comments Basophils (%) (Auto) (test code = 706-2) 1.0 0.0-1.[address] [facility] HospitalIM GRANULOCYTES %2019-02-24 00:18:00* Test Item Value Reference Range Interpretation Comments IM GRANULOCYTES % (test code = IM GRANULOCYTES %) 1.0 0.0- 1.[address] [facility] HospitalNeutrophils # (Auto)2019-02-24 00:18:00* Test Item Value Reference Range Interpretation Comments Neutrophils # (Auto) (test code = 751-8) 3.5 2.1-6.[address] [facility] HospitalLymphocytes # (Auto)2019-02-24 00:18:00* Test Item Value Reference Range Interpretation Comments Lymphocytes # (Auto) (test code = 92638-6) 1.0 1.0-3.[address] [facility] HospitalMonocytes # (Auto)2019-02-24 00:18:00* Test Item Value Reference Range Interpretation Comments Monocytes # (Auto) (test code = 742-7) 0.3 0.2-0.[address] [facility] HospitalEosinophils # (Auto)2019-02-24 00:18:00* Test Item Value Reference Range Interpretation Comments Eosinophils # (Auto) (test code = 711-2) 0.2 0.0-0.[address] [facility] HospitalBasophils # (Auto)2019-02-24 00:18:00* Test Item Value Reference Range Interpretation Comments Basophils # (Auto) (test code = 704-7) 0.1 0.0-0.[address] [facility] HospitalAbsolute Immature Granulocyte (auto 2019-02-24 00:18:00* Test Item Value Reference Range Interpretation Comments Absolute Immature Granulocyte (auto (joseph t code = Absolute Immature Granulocyte (auto) 0.05 0-0.[address] [facility] HospitalBedside Cgxqhum5491-00-46 12:27:00* Test Item Value Reference Range Interpretation Comments Bedside Glucose (test code = 36810-5) 302 70-120 H Meter ID: [id number] Hermann The [facility] Medical Centerodium Level 2019-01-21 06:25:00* Test Item Value Reference Range Interpretation Comments Sodium Level (test code = 2951-2) 137 136-[address] [facility] HospitalPotassium Zpfdb4649-78-59 06:25:00* Test Item Value Reference Range Interpretation Comments Potassium Level (test code = 2823-3) 4.8 3.5-5.[address] HospitalChloride Chbfv8429-27-06 06:25:00* Test Item Value Reference Range Interpretation Comments Chloride Level (test code = 2075-0) 101 98-[address] HospitalCarbon Dioxide Nzdom9251-05-45 06:25:00* Test Item Value Reference Range Interpretation Comments Carbon Dioxide Level (test code = 2028-9) 29 22-[address] [facility] HospitalAnion Uyq1970-63-07 06:25:00* Test Item Value Reference Range Interpretation Comments Anion Gap (test code = 23265-8) 11.8 8-[address] [facility] HospitalBlood Urea Zrbwyyue9914-95-21 06:25:00* Test Item Value Reference Range Interpretation Comments Blood Urea Nitrogen (test code = 3094-0) 17 7-[address] [facility] HospitalCreatinine2019-07-01 06:25:00* Test Item Value Reference Range Interpretation Comments Creatinine (test code = 2160-0) 0.98 0.57-1.[address] HospitalBUN/Creatinine Cjefw7724-82-35 06:25:00* Test Item Value Reference Range Interpretation Comments BUN/Creatinine Ratio (test code = 3097-3) 17 6-[address] [facility] HospitalEstimat Glomerular Filtration Rate 2019-01-21 06:25:00* Test Item Value Reference Range Interpretation Comments Estimat Glomerular Filtration Rate (test code = 403494919) 58 >60 L Ranges were taken from the National Kidney Disease Education Program and the [facility] literature.Reference ranges:60 or greater: Wibeks01-19 ( for 3 consecutive months): Chronic kidney disease 15 or less: Kidney failureCHI Adventhealth Rollins BrookGlucose Hccxt2900-38-39 06:25:00* Test Item Value Reference Range Interpretation Comments Glucose Level (test code = UNN7558) 252 74-[address] [facility] HospitalCalcium Lxnqc4668-21-51 06:25:00* Test Item Value Reference Range Interpretation Comments Calcium Level (test code = 33826-0) 9.2 8.4-10.[address] [facility] HospitalTotal Khabjvleu8392-22-06 06:25:00* Test Item Value Reference Range Interpretation Comments Total Bilirubin (test code = 1975-2) 0.2 0.2-1.[address] [facility] HospitalAspartate Amino Transf (AST/SGOT) 2019-01-21 06:25:00* Test Item Value Reference Range Interpretation Comments Aspartate Amino Transf (AST/SGOT) (test code = Aspartate Amino Transf (AST/SGOT)) 13 5-[address] [facility] HospitalAlanine Aminotransferase (ALT/SGPT) 2019-01-21 06:25:00* Test Item Value Reference Range Interpretation Comments Alanine Aminotransferase (ALT/SGPT) (test code = 1742-6) 17 0-[address] [facility] [facility] HospitalTotal Rmjwfnj1691-67-92 06:25:00* Test Item Value Reference Range Interpretation Comments Total Protein (test code = 2885-2) 6.3 6.5-8.[address] [facility] HospitalAlbumin2019-07-01 06:25:00* Test Item Value Reference Range Interpretation Comments Albumin (test code = 1751-7) 3.2 3.5-5.[address] [facility] HospitalGlobulin2019-07-01 06:25:00* Test Item Value Reference Range Interpretation Comments Globulin (test code = 08955-7) 3.1 2.3-3.[address] [facility] HospitalAlbumin/Globulin Fztrq5408-14-89 06:25:00 * Test Item Value Reference Range Interpretation Comments Albumin/Globulin Ratio (test code = 1759-0) 1.0 0.8-2.[address] [facility] HospitalAlkaline Bfdehploted8098-48-48 06:25:00* Test Item Value Reference Range Interpretation Comments Alkaline Phosphatase (test code = 6768-6) 78 40-[address] [facility] HospitalWhite Blood Uqqfa0495-60-10 06:21:00* Test Item Value Reference Range Interpretation Comments White Blood Count (test code = 6690-2) 4.81 4.8-10.[address] [facility] HospitalRed Blood Zjiex1606-63-62 06:21:00* Test Item Value Reference Range Interpretation Comments Red Blood Count (test code = 789-8) 4.90 3.6-5.[address] [facility] HospitalHemoglobin2019-07-01 06:21:00* Test Item Value Reference Range Interpretation Comments Hemoglobin (test code = 84925-7) 12.0 12.0-16.[address] [facility] HospitalHematocrit2019-07-01 06:21:00* Test Item Value Reference Range Interpretation Comments Hematocrit (test code = 4544-3) 39.4 34.2-44.[address] [facility] [facility] HospitalMean Corpuscular Vcfinr3547-78-19 06:21:00* Test Item Value Reference Range Interpretation Comments Mean Corpuscular Volume (test code = 787-2) 80.4 81-[address] [facility] [facility] HospitalMean Corpuscular Rlddgstvmn2878-25-45 06:21:00* Test Item Value Reference Range Interpretation Comments Mean Corpuscular Hemoglobin (test code = 785-6) 24.5 28-[address] [facility] [facility] HospitalMean Corpuscular Hemoglobin Concent 2019-01-21 06:21:00* Test Item Value Reference Range Interpretation Comments Mean Corpuscular Hemoglobin Concent (test code = 786-4) 30.5 31-[address] [facility] HospitalRed Cell Distribution Tuzep6249-52-26 06:21:00* Test Item Value Reference Range Interpretation Comments Red Cell Distribution Width (test code = 82973-8) 14.6 11.7 -14.[address] [facility] HospitalPlatelet Trvis5026-68-79 06:21:00* Test Item Value Reference Range Interpretation Comments Platelet Count (test code = 777-3) 157 140-[address] [facility] [facility] HospitalNeutrophils (%) (Auto)2019-01-21 06:21:00 * Test Item Value Reference Range Interpretation Comments Neutrophils (%) (Auto) (test code = 37708-0) 62.2 38.7-80.[address] HospitalLymphocytes (%) (Auto)2019-01-21 06:21:00 * Test Item Value Reference Range Interpretation Comments Lymphocytes (%) (Auto) (test code = 736-9) 25.8 18.0-39.[address] [facility] HospitalMonocytes (%) (Auto)2019-01-21 06:21:00* Test Item Value Reference Range Interpretation Comments Monocytes (%) (Auto) (test code = 5905-5) 5.8 4.4-11.[address] [facility] HospitalEosinophils (%) (Auto)2019-01-21 06:21:00 * Test Item Value Reference Range Interpretation Comments Eosinophils (%) (Auto) (test code = 713-8) 5.0 0.0-6.[address] [facility] HospitalBasophils (%) (Auto)2019-01-21 06:21:00* Test Item Value Reference Range Interpretation Comments Basophils (%) (Auto) (test code = 706-2) 0.6 0.0-1.[address] [facility] HospitalIM GRANULOCYTES %2019-01-21 06:21:00* Test Item Value Reference Range Interpretation Comments IM GRANULOCYTES % (test code = IM GRANULOCYTES %) 0.6 0.0- 1.[address] [facility] [facility] HospitalNeutrophils # (Auto)2019-01-21 06:21:00* Test Item Value Reference Range Interpretation Comments Neutrophils # (Auto) (test code = 751-8) 3.0 2.1-6.[address] [facility] HospitalLymphocytes # (Auto)2019-01-21 06:21:00* Test Item Value Reference Range Interpretation Comments Lymphocytes # (Auto) (test code = 95038-6) 1.2 1.0-3.[address] [facility] HospitalMonocytes # (Auto)2019-01-21 06:21:00* Test Item Value Reference Range Interpretation Comments Monocytes # (Auto) (test code = 742-7) 0.3 0.2-0.[address] [facility] [facility] HospitalEosinophils # (Auto)2019-01-21 06:21:00* Test Item Value Reference Range Interpretation Comments Eosinophils # (Auto) (test code = 711-2) 0.2 0.0-0.[address] [facility] HospitalBasophils # (Auto)2019-01-21 06:21:00* Test Item Value Reference Range Interpretation Comments Basophils # (Auto) (test code = 704-7) 0.0 0.0-0.[address] [facility] [facility] (auto 2019-01-21 06:21:00* Test Item Value Reference Range Interpretation Comments Absolute Immature Granulocyte (auto (joseph t code = Absolute Immature Granulocyte (auto) 0.03 0-0.[address] [facility] [facility] Dfbta9624-59-15 15:27:00* Test Item Value Reference Range Interpretation Comments Cholesterol Level (test code = 2093-3) 171 0-199 Less than 200 mg/dL Low Mplk254 - 239 mg/dL Borderline Merx339 m g/dl and greater High [facility]LDL Sfvqdrsyejt3132-80-75 15:27:00* Test Item Value Reference Range Interpretation Comments LDL Cholesterol (test code = 2089-1) 103 60-[address] [facility] HospitalHDL Vcyvshpozvw7388-40-75 15:27:00* Test Item Value Reference Range Interpretation Comments HDL Cholesterol (test code = 2085-9) 30 40-[address] [facility]Ch[facility]/HDL Stdkh5864-30-17 15:27:00 * Test Item Value Reference Range Interpretation Comments Cholesterol/HDL Ratio (test code = 9830-1) 5.7 3.0-3.[address] [facility] HospitalCh[facility] Ctkaz6473-75-74 15:27:00* Test Item Value Reference Range Interpretation Comments Cholesterol Level (test code = 2093-3) 171 0-199 Less than 200 mg/dL Low Zhce407 - 239 mg/dL Borderline Hvbr264 m g/dl and greater High [facility] HospitalLDL Moutcwughkw9644-67-50 15:27:00* Test Item Value Reference Range Interpretation Comments LDL Cholesterol (test code = 2089-1) 103 60-130 [facility] Sryrsiuipeu9892-35-92 15:27:00* Test Item Value Reference Range Interpretation Comments HDL Cholesterol (test code = 2085-9) 30 40-[address] [facility] HospitalCh[facility]/HDL Opkwl9508-61-97 15:27:00 * Test Item Value Reference Range Interpretation Comments Cholesterol/HDL Ratio (test code = 9830-1) 5.7 3.0-3.[address] [facility] HospitalCh[facility] Rpoyr2202-28-80 15:27:00* Test Item Value Reference Range Interpretation Comments Cholesterol Level (test code = 3-3) 171 0-199 Less than 200 mg/dL Low Dsrs365 - 239 mg/dL Borderline Vgox347 m g/dl and greater High Risk [facility] Kdinggqqwiy9499-44-16 15:27:00* Test Item Value Reference Range Interpretation Comments LDL Cholesterol (test code = 2089-1) 103 60-130 [facility] Qtvvzngnuer9002-50-47 15:27:00* Test Item Value Reference Range Interpretation Comments HDL Cholesterol (test code = 2085-9) 30 40-[address] [facility] HospitalCholesterol/HDL Crnuf0187-51-72 15:27:00 * Test Item Value Reference Range Interpretation Comments Cholesterol/HDL Ratio (test code = 9830-1) 5.7 3.0-3.[address] [facility]Ch[facility] Zrwbv1398-53-65 15:27:00* Test Item Value Reference Range Interpretation Comments Cholesterol Level (test code = 3-3) 171 0-199 Less than 200 mg/dL Low Rnlj686 - 239 mg/dL Borderline Keyu579 m g/dl and greater High Risk [facility] Bzpbdjgrxbs6934-61-30 15:27:00* Test Item Value Reference Range Interpretation Comments LDL Cholesterol (test code = 2089-1) 103 60-130 [facility] Qpwcysyqjqr9287-40-27 15:27:00* Test Item Value Reference Range Interpretation Comments HDL Cholesterol (test code = 2085-9) 30 40-[address] [facility]Ch[facility]/HDL Cquch0438-92-75 15:27:00 * Test Item Value Reference Range Interpretation Comments Cholesterol/HDL Ratio (test code = 9830-1) 5.7 3.0-3.[address] [facility]Ch[facility] Sgzow8200-11-81 15:27:00* Test Item Value Reference Range Interpretation Comments Cholesterol Level (test code = 2093-3) 171 0-199 Less than 200 mg/dL Low Udvy782 - 239 mg/dL Borderline Kntx151 m g/dl and greater High Risk [facility] HospitalLDL Vtzyuyghttk0158-03-55 15:27:00* Test Item Value Reference Range Interpretation Comments LDL Cholesterol (test code = 2089-1) 103 60-130 [facility] Ohrxpswljkw3728-93-30 15:27:00* Test Item Value Reference Range Interpretation Comments HDL Cholesterol (test code = 2085-9) 30 40-[address] [facility] HospitalCh[facility]/HDL Ovsok1002-77-43 15:27:00 * Test Item Value Reference Range Interpretation Comments Cholesterol/HDL Ratio (test code = 9830-1) 5.7 3.0-3.[address] [facility]Ch[facility] Ptxcf5245-33-25 15:27:00* Test Item Value Reference Range Interpretation Comments Cholesterol Level (test code = 2093-3) 171 0-199 Less than 200 mg/dL Low Woyb184 - 239 mg/dL Borderline Xxfr303 m g/dl and greater High Risk [facility] HospitalLDL Xdistulolog4962-28-06 15:27:00* Test Item Value Reference Range Interpretation Comments LDL Cholesterol (test code = 2089-1) 103 60-130 [facility] Pvzudswhmzr5778-07-63 15:27:00* Test Item Value Reference Range Interpretation Comments HDL Cholesterol (test code = 2085-9) 30 40-[address] [facility] HospitalCh[facility]/HDL Sjqmz3767-83-39 15:27:00 * Test Item Value Reference Range Interpretation Comments Cholesterol/HDL Ratio (test code = 9830-1) 5.7 3.0-3.[address] [facility] HospitalTriglycerides Pskfv9118-82-95 13:34:00* Test Item Value Reference Range Interpretation Comments Triglycerides Level (test code = 2571-8) 190 0-[address] [facility] HospitalTriglycerIredell Memorial HospitalHeybq4890-97-67 13:34:00* Test Item Value Reference Range Interpretation Comments Triglycerides Level (test code = 2571-8) 190 0-[address] [facility] HospitalTriglycerg[facility] Poabg4872-93-65 13:34:00* Test Item Value Reference Range Interpretation Comments Triglycerides Level (test code = 2571-8) 190 0-[address] [facility] HospitalTriglycerIredell Memorial HospitalTtkgg6943-77-22 13:34:00* Test Item Value Reference Range Interpretation Comments Triglycerides Level (test code = 2571-8) 190 0-[address] [facility] HospitalTriglycerIredell Memorial HospitalXjkuj0686-38-99 13:34:00* Test Item Value Reference Range Interpretation Comments Triglycerides Level (test code = 2571-8) 190 0-149 [facility] CenterlycerIredell Memorial HospitalXeqmt2533-49-90 13:34:00* Test Item Value Reference Range Interpretation Comments Triglycerides Level (test code = 2571-8) 190 0-149 H [facility] Occult Hfsbl5240-78-43 09:04:00* Test Item Value Reference Range Interpretation Comments Stool Occult Blood (test code = 2335-8) POSITIVE NEGATIVE [facility] Occult Lwhzp8095-38-80 09:04:00* Test Item Value Reference Range Interpretation Comments Stool Occult Blood (test code = 2335-8) POSITIVE NEGATIVE [facility] Occult Ldogq9899-43-84 09:04:00* Test Item Value Reference Range Interpretation Comments Stool Occult Blood (test code = 2335-8) POSITIVE NEGATIVE [facility] Occult Xvbvz2682-41-11 09:04:00* Test Item Value Reference Range Interpretation Comments Stool Occult Blood (test code = 2335-8) POSITIVE NEGATIVE [facility] Occult Zlqge3497-73-78 09:04:00* Test Item Value Reference Range Interpretation Comments Stool Occult Blood (test code = 2335-8) POSITIVE NEGATIVE [facility] Occult Xatkl4628-99-80 09:04:00* Test Item Value Reference Range Interpretation Comments Stool Occult Blood (test code = 2335-8) [facility]GAT[facility] 2019-01-18 06:48:00* Test Item Value Reference Range Interpretation Comments Thyroid Stimulating Hormone (TSH) (test code = 17276-8) 0.428 0.350-4.[address] [facility] HospitalThyroid Stimulating Hormone (TSH) 2019-01-18 06:48:00* Test Item Value Reference Range Interpretation Comments Thyroid Stimulating Hormone (TSH) (test code = 70228-7) 0.428 0.350-4.[address] [facility] HospitalThyroid Stimulating Hormone (TSH) 2019-01-18 06:48:00* Test Item Value Reference Range Interpretation Comments Thyroid Stimulating Hormone (TSH) (test code = 99453-4) 0.428 0.350-4.[address] [facility] HospitalThyroid Stimulating Hormone (TSH) 2019-01-18 06:48:00* Test Item Value Reference Range Interpretation Comments Thyroid Stimulating Hormone (TSH) (test code = 50331-9) 0.428 0.350-4.[address] [facility] HospitalThyroid Stimulating Hormone (TSH) 2019-01-18 06:48:00* Test Item Value Reference Range Interpretation Comments Thyroid Stimulating Hormone (TSH) (test code = 58929-8) 0.428 0.350-4.[address] [facility] HospitalThyroid Stimulating Hormone (TSH) 2019-01-18 06:48:00* Test Item Value Reference Range Interpretation Comments Thyroid Stimulating Hormone (TSH) (test code = 26692-8) 0.428 0.350-4.[address] [facility] HospitalFree Ycxgmpnxp9520-39-33 15:32:00* Test Item Value Reference Range Interpretation Comments Free Thyroxine (test code = 3024-7) 1.05 0.8-1.8 [facility] Taqaxltzr8705-14-97 15:32:00* Test Item Value Reference Range Interpretation Comments Free Thyroxine (test code = 3024-7) 1.05 0.8-1.8 [facility] Qgxrjdhin9506-74-36 15:32:00* Test Item Value Reference Range Interpretation Comments Free Thyroxine (test code = 3024-7) 1.05 0.8-1.8 [facility] Rhkqimlix4148-64-83 15:32:00* Test Item Value Reference Range Interpretation Comments Free Thyroxine (test code = 3024-7) 1.05 0.8-1.8 [facility] Rtpsfmtnr7121-49-18 15:32:00* Test Item Value Reference Range Interpretation Comments Free Thyroxine (test code = 3024-7) 1.05 0.8-1.8 [facility] Ndfqtaqom0010-33-10 15:32:00* Test Item Value Reference Range Interpretation Comments Free Thyroxine (test code = 3024-7) 1.05 0.8-1.[address] [facility] HospitalCreatine Carvnf9166-72-30 14:58:00* Test Item Value Reference Range Interpretation Comments Creatine Kinase (test code = 2157-6) 23 29-[address] [facility] HospitalCreatine Kinase AF5730-08-48 14:58:00* Test Item Value Reference Range Interpretation Comments Creatine Kinase MB (test code = 46928-5) 0.60 0-5.[address] [facility] HospitalTroponin Q3465-28-43 14:58:00* Test Item Value Reference Range Interpretation Comments Troponin I (test code = EKB2057) < 0.001 0-0.[address] [facility] HospitalCreatine Skfkzx8089-20-26 14:58:00* Test Item Value Reference Range Interpretation Comments Creatine Kinase (test code = 2157-6) 23 29-[address] [facility] HospitalCreatine Kinase MR5714-95-61 14:58:00* Test Item Value Reference Range Interpretation Comments Creatine Kinase MB (test code = 31083-5) 0.60 0-5.0 [place] [id number] 14:58:00* Test Item Value Reference Range Interpretation Comments Troponin I (test code = NWZ9380) < 0.001 0-0.[address] [facility] HospitalCreatine Dpisrx1886-70-67 14:58:00* Test Item Value Reference Range Interpretation Comments Creatine Kinase (test code = 2157-6) 23 29-[address] [facility] HospitalCreatine Kinase UV8820-92-18 14:58:00* Test Item Value Reference Range Interpretation Comments Creatine Kinase MB (test code = 60757-7) 0.60 0-5.0 [place] 26940019-06-27 14:58:00* Test Item Value Reference Range Interpretation Comments Troponin I (test code = QTV2066) < 0.001 0-0.[address] [facility] HospitalCreatine Gkphvj2021-64-11 14:58:00* Test Item Value Reference Range Interpretation Comments Creatine Kinase (test code = 2157-6) 23 29-[address] [facility] HospitalCreatine Kinase KM3648-06-21 14:58:00* Test Item Value Reference Range Interpretation Comments Creatine Kinase MB (test code = 86001-2) 0.60 0-5.0 [place] 26940019-06-27 14:58:00* Test Item Value Reference Range Interpretation Comments Troponin I (test code = DZK4278) < 0.001 0-0.[address] [facility] HospitalCreatine Ipqeiz6198-43-26 14:58:00* Test Item Value Reference Range Interpretation Comments Creatine Kinase (test code = 2157-6) 23 29-[address] [facility] HospitalCreat[facility] Kinase QH4493-00-65 14:58:00* Test Item Value Reference Range Interpretation Comments Creatine Kinase MB (test code = 66879-7) 0.60 0-5.0 [place] 26940019-06-27 14:58:00* Test Item Value Reference Range Interpretation Comments Troponin I (test code = AYC5336) < 0.001 0-0.[address] [facility] HospitalCreatine Yygsrd4939-92-71 14:58:00* Test Item Value Reference Range Interpretation Comments Creatine Kinase (test code = 2157-6) 23 29-[address] [facility] HospitalCreat[facility] Kinase TU6820-74-30 14:58:00* Test Item Value Reference Range Interpretation Comments Creatine Kinase MB (test code = 37951-1) 0.60 0-5.[address] [facility] HospitalTroponin U6364-44-00 14:58:00* Test Item Value Reference Range Interpretation Comments Troponin I (test code = XSI6165) < 0.001 0-0.[address] [facility] HospitalHemoglobin A1c Lowlvit4231-66-48 14:27:00 * Test Item Value Reference Range Interpretation Comments Hemoglobin A1c Percent (test code = Hemoglobin A1c Percent) 11.6 4.0-7.[address] [facility] HospitalHemoglobin A1c Zxzwqvy3801-76-96 14:27:00 * Test Item Value Reference Range Interpretation Comments Hemoglobin A1c Percent (test code = Hemoglobin A1c Percent) 11.6 4.0-7.[address] HospitalHemoglobin A1c Ytslrlm8698-84-20 14:27:00 * Test Item Value Reference Range Interpretation Comments Hemoglobin A1c Percent (test code = Hemoglobin A1c Percent) 11.6 4.0-7.[address] HospitalHemoglobin A1c Hfmhudx7174-25-10 14:27:00 * Test Item Value Reference Range Interpretation Comments Hemoglobin A1c Percent (test code = Hemoglobin A1c Percent) 11.6 4.0-7.[address] HospitalHemoglobin A1c Vyqvxqr5855-69-30 14:27:00 * Test Item Value Reference Range Interpretation Comments Hemoglobin A1c Percent (test code = Hemoglobin A1c Percent) 11.6 4.0-7.[address] HospitalHemoglobin A1c Ihczypd3780-21-01 14:27:00 * Test Item Value Reference Range Interpretation Comments Hemoglobin A1c Percent (test code = Hemoglobin A1c Percent) 11.6 4.0-7.[address] [facility] HospitalB-Type Natriuretic Cagzosh7614-96-04 06:11:00* Test Item Value Reference Range Interpretation Comments B-Type Natriuretic Peptide (test code = 99042-2) 14.3 0-[address] [facility] HospitalB-Type Natriuretic Mhfwhru9818-03-32 06:11:00* Test Item Value Reference Range Interpretation Comments B-Type Natriuretic Peptide (test code = 89129-7) 14.3 0-[address] [facility] Natriuretic Rsrphte2268-25-30 06:11:00* Test Item Value Reference Range Interpretation Comments B-Type Natriuretic Peptide (test code = 04794-0) 14.3 0-[address] [facility] HospitalB-[facility] Natriuretic Spyopdq6304-90-92 06:11:00* Test Item Value Reference Range Interpretation Comments B-Type Natriuretic Peptide (test code = 80249-1) 14.3 0-[address] [facility] Natriuretic Jsbnels2965-35-24 06:11:00* Test Item Value Reference Range Interpretation Comments B-Type Natriuretic Peptide (test code = 06742-9) 14.3 0-[address] [facility] Natriuretic Lqghmau5285-17-49 06:11:00* Test Item Value Reference Range Interpretation Comments B-Type Natriuretic Peptide (test code = 17234-0) 14.3 0-[address] [facility] HospitalUrine YOY5527-34-70 21:13:00* Test Item Value Reference Range Interpretation Comments Urine WBC (test code = 5821-4) NONE 0-[address] [facility] HospitalU[facility] UKH8060-46-49 21:13:00* Test Item Value Reference Range Interpretation Comments Urine RBC (test code = 75909-4) NONE 0-[address] [facility] HospitalUrine Zsirhgvp0843-70-04 21:13:00* Test Item Value Reference Range Interpretation Comments Urine Bacteria (test code = 64911-8) FEW NONE [facility] HospitalU[facility] Epithelial Tklvc1383-58-20 21:13:00 * Test Item Value Reference Range Interpretation Comments Urine Epithelial Cells (test code = 93055-1) MANY NONE [facility] ZSE5001-54-72 21:13:00* Test Item Value Reference Range Interpretation Comments Urine WBC (test code = 5821-4) NONE 0-5 [facility] MBN2481-91-99 21:13:00* Test Item Value Reference Range Interpretation Comments Urine RBC (test code = 64657-5) NONE 0-5 [facility] Qqreaygn1711-21-90 21:13:00* Test Item Value Reference Range Interpretation Comments Urine Bacteria (test code = 72648-0) FEW NONE [facility] Epithelial Pumus4483-27-89 21:13:00 * Test Item Value Reference Range Interpretation Comments Urine Epithelial Cells (test code = 34379-9) MANY NONE [facility] HCI7063-24-95 21:13:00* Test Item Value Reference Range Interpretation Comments Urine WBC (test code = 5821-4) NONE 0-5 [facility] VCC8958-95-42 21:13:00* Test Item Value Reference Range Interpretation Comments Urine RBC (test code = 96950-2) NONE 0-5 [facility] Jdcnkytw3206-36-80 21:13:00* Test Item Value Reference Range Interpretation Comments Urine Bacteria (test code = 81652-0) FEW NONE [facility] HospitalU[facility] Epithelial Cuhlg9570-02-06 21:13:00 * Test Item Value Reference Range Interpretation Comments Urine Epithelial Cells (test code = 14918-3) MANY NONE [facility] PAU6998-84-01 21:13:00* Test Item Value Reference Range Interpretation Comments Urine WBC (test code = 5821-4) NONE 0-5 [facility] IHX2267-28-91 21:13:00* Test Item Value Reference Range Interpretation Comments Urine RBC (test code = 71382-5) NONE 0-5 [facility] Yrmfzgjw5708-00-89 21:13:00* Test Item Value Reference Range Interpretation Comments Urine Bacteria (test code = 16731-4) FEW NONE [facility] Epithelial Bwalz6706-64-32 21:13:00 * Test Item Value Reference Range Interpretation Comments Urine Epithelial Cells (test code = 78137-5) MANY NONE [facility] VSG9112-41-61 21:13:00* Test Item Value Reference Range Interpretation Comments Urine WBC (test code = 5821-4) NONE 0-[address] LPO3400-31-38 21:13:00* Test Item Value Reference Range Interpretation Comments Urine RBC (test code = 61940-9) NONE 0-[address] [facility] [facility] Vlcfrzfg0202-32-42 21:13:00* Test Item Value Reference Range Interpretation Comments Urine Bacteria (test code = 93365-5) FEW NONE [facility] Epithelial Rmkza9086-08-29 21:13:00 * Test Item Value Reference Range Interpretation Comments Urine Epithelial Cells (test code = 73876-1) MANY NONE [facility] HJG6518-49-70 21:13:00* Test Item Value Reference Range Interpretation Comments Urine WBC (test code = 5821-4) NONE 0-[address] [facility] [facility] GEI3109-28-75 21:13:00* Test Item Value Reference Range Interpretation Comments Urine RBC (test code = 76622-5) NONE 0-[address] [facility] [facility] Opyijxij2989-30-66 21:13:00* Test Item Value Reference Range Interpretation Comments Urine Bacteria (test code = 83544-2) FEW NONE [facility] Epithelial Lxjjv6278-35-34 21:13:00 * Test Item Value Reference Range Interpretation Comments Urine Epithelial Cells (test code = 72413-9) MANY NONE [facility] Uputi2051-41-82 21:08:00* Test Item Value Reference Range Interpretation Comments Urine Color (test code = 5778-6) YELLOW YELLOW [facility] Kjtpiao1956 21:08:00* Test Item Value Reference Range Interpretation Comments Urine Clarity (test code = 15279-9) CLEAR CLEAR [facility] Specific Jwubirp4259-74-49 21:08:00 * Test Item Value Reference Range Interpretation Comments Urine Specific [place] (test code = 5811-5) <=1.005 1.010-1.[address] [facility] [id number] 21:08:00* Test Item Value Reference Range Interpretation Comments Urine pH (test code = 37532-0) 6 5-7 [facility] Leukocyte Dwmkcrwk3655-97-02 21:08:00* Test Item Value Reference Range Interpretation Comments Urine Leukocyte Esterase (test code = 75689-0) NEGATIVE NEGATIV E [facility] Uicguue9265-13-33 21:08:00* Test Item Value Reference Range Interpretation Comments Urine Nitrite (test code = 11963-9) NEGATIVE NEGATIVE [facility] Rykexow1552-62-34 21:08:00* Test Item Value Reference Range Interpretation Comments Urine Protein (test code = 30611-8) NEGATIVE NEGATIVE [facility] Glucose (UA)2019-01-16 21:08:00* Test Item Value Reference Range Interpretation Comments Urine Glucose (UA) (test code = 47213-4) 3+ NEGATIVE [facility] Xayyeph3716-36-69 21:08:00* Test Item Value Reference Range Interpretation Comments Urine Ketones (test code = 37212-6) NEGATIVE NEGATIVE [facility] Epawtbuidftv2669-81-73 21:08:00* Test Item Value Reference Range Interpretation Comments Urine Urobilinogen (test code = 84619-6) 0.2 0.2-1 [facility] Crwnmieut4806-05-40 21:08:00* Test Item Value Reference Range Interpretation Comments Urine Bilirubin (test code = 1977-8) NEGATIVE NEGATIVE [facility] Dwskn9705-67-46 21:08:00* Test Item Value Reference Range Interpretation Comments Urine Blood (test code = 67285-7) NEGATIVE NEGATIVE [facility] Tlgvo5892-89-54 21:08:00* Test Item Value Reference Range Interpretation Comments Urine Color (test code = 5778-6) YELLOW YELLOW [facility] Siwictl3881-88-96 21:08:00* Test Item Value Reference Range Interpretation Comments Urine Clarity (test code = 22157-5) CLEAR CLEAR [facility] Specific Mfbopmi0206-23-62 21:08:00 * Test Item Value Reference Range Interpretation Comments Urine Specific [place] (test code = 5811-5) <=1.005 1.010-1.[address] [facility] rB8811-03-08 21:08:00* Test Item Value Reference Range Interpretation Comments Urine pH (test code = 92911-5) 6 5-[address] [facility] Leukocyte Xkukviwu8952-22-51 21:08:00* Test Item Value Reference Range Interpretation Comments Urine Leukocyte Esterase (test code = 51946-8) NEGATIVE NEGATIV E [facility] Xsrzzij9352-50-09 21:08:00* Test Item Value Reference Range Interpretation Comments Urine Nitrite (test code = 90838-9) NEGATIVE NEGATIVE [facility] Gumeshs8460-62-14 21:08:00* Test Item Value Reference Range Interpretation Comments Urine Protein (test code = 76028-1) NEGATIVE NEGATIVE [facility] Glucose (UA)2019-01-16 21:08:00* Test Item Value Reference Range Interpretation Comments Urine Glucose (UA) (test code = 56724-5) 3+ NEGATIVE [facility] Fnaojbm3057-32-82 21:08:00* Test Item Value Reference Range Interpretation Comments Urine Ketones (test code = 34325-6) NEGATIVE NEGATIVE [facility] Bkccezzuyswg2166-79-73 21:08:00* Test Item Value Reference Range Interpretation Comments Urine Urobilinogen (test code = 87733-1) 0.2 0.2-[address] [facility] Ftvmverio0985-35-12 21:08:00* Test Item Value Reference Range Interpretation Comments Urine Bilirubin (test code = 1977-8) NEGATIVE NEGATIVE [facility] Ivkvf4922-45-43 21:08:00* Test Item Value Reference Range Interpretation Comments Urine Blood (test code = 67991-8) NEGATIVE NEGATIVE [facility] Pbepl3791-63-81 21:08:00* Test Item Value Reference Range Interpretation Comments Urine Color (test code = 5778-6) YELLOW YELLOW [facility] Kuwjnho7833-85-92 21:08:00* Test Item Value Reference Range Interpretation Comments Urine Clarity (test code = 75809-8) CLEAR CLEAR [facility] Specific Zdcplrm8462-75-30 21:08:00 * Test Item Value Reference Range Interpretation Comments Urine Specific [place] (test code = 5811-5) <=1.005 1.010-1.[address] [facility] HospitalU[facility] jH9408-14-50 21:08:00* Test Item Value Reference Range Interpretation Comments Urine pH (test code = 54574-9) 6 5-[address] [facility] Leukocyte Khvfqyxu5397-41-16 21:08:00* Test Item Value Reference Range Interpretation Comments Urine Leukocyte Esterase (test code = 01751-8) NEGATIVE NEGATIV E [facility] Wydahfk9305-02-15 21:08:00* Test Item Value Reference Range Interpretation Comments Urine Nitrite (test code = 65040-5) NEGATIVE NEGATIVE [facility] Vnpuyuy8466-30-67 21:08:00* Test Item Value Reference Range Interpretation Comments Urine Protein (test code = 37470-0) NEGATIVE NEGATIVE [facility] Glucose (UA)2019-01-16 21:08:00* Test Item Value Reference Range Interpretation Comments Urine Glucose (UA) (test code = 68852-9) 3+ NEGATIVE [facility] Kahzque6028-81-44 21:08:00* Test Item Value Reference Range Interpretation Comments Urine Ketones (test code = 34036-0) NEGATIVE NEGATIVE [facility] Vrysijtwyfii5578-64-25 21:08:00* Test Item Value Reference Range Interpretation Comments Urine Urobilinogen (test code = 26173-7) 0.2 0.2-[address] [address] [facility] HospitalU[facility] Sofmczeke3683-93-74 21:08:00* Test Item Value Reference Range Interpretation Comments Urine Bilirubin (test code = 1977-8) NEGATIVE NEGATIVE [facility] Qnffl6416-16-11 21:08:00* Test Item Value Reference Range Interpretation Comments Urine Blood (test code = 44761-7) NEGATIVE NEGATIVE [facility] Kycwa4186-42-72 21:08:00* Test Item Value Reference Range Interpretation Comments Urine Color (test code = 5778-6) YELLOW YELLOW [facility] Rvnlxmk6955-86-99 21:08:00* Test Item Value Reference Range Interpretation Comments Urine Clarity (test code = 34410-2) CLEAR CLEAR [facility] Specific Wnypbme2260-96-99 21:08:00 * Test Item Value Reference Range Interpretation Comments Urine Specific [place] (test code = 5811-5) <=1.005 1.010-1.[address] [facility] HospitalU[facility] iE3908-27-99 21:08:00* Test Item Value Reference Range Interpretation Comments Urine pH (test code = 24210-0) 6 5-[address] [facility] [facility] Leukocyte Hejkhtoj9112-73-26 21:08:00* Test Item Value Reference Range Interpretation Comments Urine Leukocyte Esterase (test code = 64336-4) NEGATIVE NEGATIV E [facility] Vgdftuv4487-46-38 21:08:00* Test Item Value Reference Range Interpretation Comments Urine Nitrite (test code = 58713-9) NEGATIVE NEGATIVE [facility] Isdkypu6523-86-19 21:08:00* Test Item Value Reference Range Interpretation Comments Urine Protein (test code = 83871-9) NEGATIVE NEGATIVE [facility] Glucose (UA)2019-01-16 21:08:00* Test Item Value Reference Range Interpretation Comments Urine Glucose (UA) (test code = 62477-3) 3+ NEGATIVE [facility] Jiisavz9438-81-42 21:08:00* Test Item Value Reference Range Interpretation Comments Urine Ketones (test code = 25980-4) NEGATIVE NEGATIVE [facility] Twivchkfkoul4234-59-16 21:08:00* Test Item Value Reference Range Interpretation Comments Urine Urobilinogen (test code = 13003-1) 0.2 0.2-[address] Pabinxadx0765-66-89 21:08:00* Test Item Value Reference Range Interpretation Comments Urine Bilirubin (test code = 1977-8) NEGATIVE NEGATIVE [facility] Tguhn3848-67-07 21:08:00* Test Item Value Reference Range Interpretation Comments Urine Blood (test code = 07424-5) NEGATIVE NEGATIVE [facility] Tsrgy3706-93-04 21:08:00* Test Item Value Reference Range Interpretation Comments Urine Color (test code = 5778-6) YELLOW YELLOW [facility] Mgkhqmv1486-36-84 21:08:00* Test Item Value Reference Range Interpretation Comments Urine Clarity (test code = 84157-3) CLEAR CLEAR [facility] Specific Rrmnsca0162-17-63 21:08:00 * Test Item Value Reference Range Interpretation Comments Urine Specific [place] (test code = 5811-5) <=1.005 1.010-1.[address] [facility] HospitalU[facility] aC2097-34-25 21:08:00* Test Item Value Reference Range Interpretation Comments Urine pH (test code = 39215-5) 6 5-[address] Leukocyte Sobugwan5809-41-97 21:08:00* Test Item Value Reference Range Interpretation Comments Urine Leukocyte Esterase (test code = 92502-2) NEGATIVE NEGATIV E [facility] Qojksef9568-18-59 21:08:00* Test Item Value Reference Range Interpretation Comments Urine Nitrite (test code = 63972-3) NEGATIVE NEGATIVE [facility] Qtdqfar6197-44-77 21:08:00* Test Item Value Reference Range Interpretation Comments Urine Protein (test code = 45585-7) NEGATIVE NEGATIVE [facility] Glucose (UA)2019-01-16 21:08:00* Test Item Value Reference Range Interpretation Comments Urine Glucose (UA) (test code = 40454-5) 3+ NEGATIVE [facility] Kpajtuu3565-77-57 21:08:00* Test Item Value Reference Range Interpretation Comments Urine Ketones (test code = 91628-7) NEGATIVE NEGATIVE [facility] Jhmypwkxabpp3901-36-17 21:08:00* Test Item Value Reference Range Interpretation Comments Urine Urobilinogen (test code = 55957-1) 0.2 0.2-[address] Sjriesrjt1845-99-09 21:08:00* Test Item Value Reference Range Interpretation Comments Urine Bilirubin (test code = 1977-8) NEGATIVE NEGATIVE [facility] Pnusz4472-61-54 21:08:00* Test Item Value Reference Range Interpretation Comments Urine Blood (test code = 80400-9) NEGATIVE NEGATIVE [facility] Mwnjo7621-08-12 21:08:00* Test Item Value Reference Range Interpretation Comments Urine Color (test code = 5778-6) YELLOW YELLOW [facility] Gkjfthq8191-87-27 21:08:00* Test Item Value Reference Range Interpretation Comments Urine Clarity (test code = 57767-6) CLEAR CLEAR [facility] Specific Ekrxpjg9190-48-61 21:08:00 * Test Item Value Reference Range Interpretation Comments Urine Specific [place] (test code = 5811-5) <=1.005 1.010-1.[address] [facility] [facility] HospitalU[facility] zA3775-28-57 21:08:00* Test Item Value Reference Range Interpretation Comments Urine pH (test code = 41178-8) 6 5-[address] [facility] Leukocyte Wjnztmhw4808-03-48 21:08:00* Test Item Value Reference Range Interpretation Comments Urine Leukocyte Esterase (test code = 94260-1) NEGATIVE NEGATIV E [facility] Xebsmll8465-76-29 21:08:00* Test Item Value Reference Range Interpretation Comments Urine Nitrite (test code = 44774-6) NEGATIVE NEGATIVE [facility] Qanjwps1556-41-03 21:08:00* Test Item Value Reference Range Interpretation Comments Urine Protein (test code = 97320-1) NEGATIVE NEGATIVE [facility] Glucose (UA)2019-01-16 21:08:00* Test Item Value Reference Range Interpretation Comments Urine Glucose (UA) (test code = 80103-9) 3+ NEGATIVE [facility] Ctnqabf5129-60-60 21:08:00* Test Item Value Reference Range Interpretation Comments Urine Ketones (test code = 57163-6) NEGATIVE NEGATIVE [facility] Ikcurdqaepfh9873-96-49 21:08:00* Test Item Value Reference Range Interpretation Comments Urine Urobilinogen (test code = 33528-9) 0.2 0.2-[address] Lgwezwwir7978-18-96 21:08:00* Test Item Value Reference Range Interpretation Comments Urine Bilirubin (test code = 1977-8) NEGATIVE NEGATIVE [facility] Linif6336-19-68 21:08:00* Test Item Value Reference Range Interpretation Comments Urine Blood (test code = 79960-2) NEGATIVE NEGATIVE [facility] HospitalCHEST SINGLE (PORTABLE)2019-01-16 20:38:00 [place] [id number] Patient Name: KALYANI TALAVERA MR #: [id number] : 1955 Age/Sex: 63/F Req #: [id number] Adm Physician: Ordered by: JACQUES JANE MD Report #: [id number] Location: ER Room/Bed: Procedure: 65 DX/CHEST SINGLE (PORTABLE) Exam Date: 01/16/19 Ex am Time: 2020 REPORT STATUS: Signed A single frontal view [...] 01/16/192040 COPY TO: JACQUES JANE MD Bedside Dhysgzn5550-96-10 11:08:00* Test Item Value Reference Range Interpretation Comments Bedside Glucose (test code = 82474-8) 289 70-120 H Meter ID: [id number] Centerodium Level 2019-01-13 05:34:00* Test Item Value Reference Range Interpretation Comments Sodium Level (test code = 2951-2) 138 136-[address] [facility] HospitalPotassium Vvjfr1448-03-02 05:34:00* Test Item Value Reference Range Interpretation Comments Potassium Level (test code = 2823-3) 3.8 3.5-5.[address] [facility] HospitalChloride Doova8583-39-08 05:34:00* Test Item Value Reference Range Interpretation Comments Chloride Level (test code = 2075-0) 105 98-[address] [facility] HospitalCarbon Dioxide Jbugx5967-09-81 05:34:00* Test Item Value Reference Range Interpretation Comments Carbon Dioxide Level (test code = 2028-9) 25 22-[address] [facility] HospitalAnion Emo8530-43-23 05:34:00* Test Item Value Reference Range Interpretation Comments Anion Gap (test code = 71288-4) 11.8 8-[address] [facility] [facility] HospitalBlood Urea Xppwtytb6687-38-89 05:34:00* Test Item Value Reference Range Interpretation Comments Blood Urea Nitrogen (test code = 3094-0) 16 7-[address] [facility] HospitalCreatinine2019-06-23 05:34:00* Test Item Value Reference Range Interpretation Comments Creatinine (test code = 2160-0) 0.78 0.57-1.[address] [facility] HospitalBUN/Creatinine Attnh4660-36-65 05:34:00* Test Item Value Reference Range Interpretation Comments BUN/Creatinine Ratio (test code = 3097-3) 21 6- [facility] HospitalEstimat Glomerular Filtration Rate 2019-01-13 05:34:00* Test Item Value Reference Range Interpretation Comments Estimat Glomerular Filtration Rate (test code = 191879768) > 60 >60 Ranges were taken from the National Kidney Disease Education Program and the [facility] literature.Reference ranges:60 or greater: Eyblyy17-49 ( for 3 consecutive months): Chronic kidney disease 15 or less: Kidney failureCHI St[facility] HospitalGlucose Hosdm7124-64-19 05:34:00* Test Item Value Reference Range Interpretation Comments Glucose Level (test code = OPY1902) 151 74-[address] [facility] HospitalCalcium Ilrhs0579-73-44 05:34:00* Test Item Value Reference Range Interpretation Comments Calcium Level (test code = 29691-0) 8.5 8.4-10.[address] [facility] HospitalTotal Kjupauzhj7824-12-74 05:34:00* Test Item Value Reference Range Interpretation Comments Total Bilirubin (test code = 1975-2) 0.3 0.2-1.[address] HospitalAspartate Amino Transf (AST/SGOT) 2019-01-13 05:34:00* Test Item Value Reference Range Interpretation Comments Aspartate Amino Transf (AST/SGOT) (test code = Aspartate Amino Transf (AST/SGOT)) 12 5-[address] [facility] HospitalAlanine Aminotransferase (ALT/SGPT) 2019-01-13 05:34:00* Test Item Value Reference Range Interpretation Comments Alanine Aminotransferase (ALT/SGPT) (test code = 1742-6) 16 0-[address] [facility] HospitalTotal Tolokap1858-10-17 05:34:00* Test Item Value Reference Range Interpretation Comments Total Protein (test code = 2885-2) 5.5 6.5-8.[address] HospitalAlbumin2019-06-23 05:34:00* Test Item Value Reference Range Interpretation Comments Albumin (test code = 1751-7) 3.0 3.5-5.[address] HospitalGlobulin2019-06-23 05:34:00* Test Item Value Reference Range Interpretation Comments Globulin (test code = 50244-7) 2.5 2.3-3.[address] HospitalAlbumin/Globulin Rssux3220-45-66 05:34:00 * Test Item Value Reference Range Interpretation Comments Albumin/Globulin Ratio (test code = 1759-0) 1.2 0.8-2.[address] HospitalAlkaline Ezwxkabxxtg0435-43-20 05:34:00* Test Item Value Reference Range Interpretation Comments Alkaline Phosphatase (test code = 6768-6) 69 40-[address] [facility] HospitalWhite Blood Waipr2928-92-09 05:17:00* Test Item Value Reference Range Interpretation Comments White Blood Count (test code = 6690-2) 5.11 4.8-10.[address] [facility] HospitalRed Blood Qerdc2957-87-93 05:17:00* Test Item Value Reference Range Interpretation Comments Red Blood Count (test code = 789-8) 4.52 3.6-5.[address] HospitalHemoglobin2019-06-23 05:17:00* Test Item Value Reference Range Interpretation Comments Hemoglobin (test code = 22188-0) 11.2 12.0-16.[address] HospitalHematocrit2019-06-23 05:17:00* Test Item Value Reference Range Interpretation Comments Hematocrit (test code = 4544-3) 36.5 34.2-44.[address] HospitalMean Corpuscular Wkimzn0772-86-65 05:17:00* Test Item Value Reference Range Interpretation Comments Mean Corpuscular Volume (test code = 787-2) 80.8 81-[address] [facility] HospitalMean Corpuscular Ioquxjuynl4528-74-86 05:17:00* Test Item Value Reference Range Interpretation Comments Mean Corpuscular Hemoglobin (test code = 785-6) 24.8 28-[address] [facility] HospitalMean Corpuscular Hemoglobin Concent 2019-01-13 05:17:00* Test Item Value Reference Range Interpretation Comments Mean Corpuscular Hemoglobin Concent (test code = 786-4) 30.7 31-[address] [facility] HospitalRed Cell Distribution Fzune2499-44-37 05:17:00* Test Item Value Reference Range Interpretation Comments Red Cell Distribution Width (test code = 64584-1) 14.9 11.7 -14.[address] [facility] HospitalPlatelet Qbbsh2438-82-46 05:17:00* Test Item Value Reference Range Interpretation Comments Platelet Count (test code = 777-3) 149 140-[address] [facility] HospitalNeutrophils (%) (Auto)2019-01-13 05:17:00 * Test Item Value Reference Range Interpretation Comments Neutrophils (%) (Auto) (test code = 53203-4) 67.6 38.7-80.[address] HospitalLymphocytes (%) (Auto)2019-01-13 05:17:00 * Test Item Value Reference Range Interpretation Comments Lymphocytes (%) (Auto) (test code = 736-9) 20.4 18.0-39.[address] [facility] HospitalMonocytes (%) (Auto)2019-01-13 05:17:00* Test Item Value Reference Range Interpretation Comments Monocytes (%) (Auto) (test code = 5905-5) 5.9 4.4-11.[address] [facility] HospitalEosinophils (%) (Auto)2019-01-13 05:17:00 * Test Item Value Reference Range Interpretation Comments Eosinophils (%) (Auto) (test code = 713-8) 4.1 0.0-6.[address] HospitalBasophils (%) (Auto)2019-01-13 05:17:00* Test Item Value Reference Range Interpretation Comments Basophils (%) (Auto) (test code = 706-2) 1.2 0.0-1.[address] [facility] HospitalIM GRANULOCYTES %2019-01-13 05:17:00* Test Item Value Reference Range Interpretation Comments IM GRANULOCYTES % (test code = IM GRANULOCYTES %) 0.8 0.0- 1.[address] [facility] HospitalNeutrophils # (Auto)2019-01-13 05:17:00* Test Item Value Reference Range Interpretation Comments Neutrophils # (Auto) (test code = 751-8) 3.5 2.1-6.[address] [facility] HospitalLymphocytes # (Auto)2019-01-13 05:17:00* Test Item Value Reference Range Interpretation Comments Lymphocytes # (Auto) (test code = 14534-1) 1.0 1.0-3.[address] HospitalMonocytes # (Auto)2019-01-13 05:17:00* Test Item Value Reference Range Interpretation Comments Monocytes # (Auto) (test code = 742-7) 0.3 0.2-0.[address] [facility] HospitalEosinophils # (Auto)2019-01-13 05:17:00* Test Item Value Reference Range Interpretation Comments Eosinophils # (Auto) (test code = 711-2) 0.2 0.0-0.[address] [facility] HospitalBasophils # (Auto)2019-01-13 05:17:00* Test Item Value Reference Range Interpretation Comments Basophils # (Auto) (test code = 704-7) 0.1 0.0-0.[address] HospitalAbsolute Immature Granulocyte (auto 2019-01-13 05:17:00* Test Item Value Reference Range Interpretation Comments Absolute Immature Granulocyte (auto (joseph t code = Absolute Immature Granulocyte (auto) 0.04 0-0.[address] HospitalHemoglobin A1c Pkspypl3793-10-78 13:04:00 * Test Item Value Reference Range Interpretation Comments Hemoglobin A1c Percent (test code = Hemoglobin A1c Percent) 11.6 4.0-7.[address] [facility] HospitalUrine DTN2563-63-59 18:54:00* Test Item Value Reference Range Interpretation Comments Urine WBC (test code = 5821-4) NONE 0-[address] [facility] [facility] HospitalUrine FWW2607-78-61 18:54:00* Test Item Value Reference Range Interpretation Comments Urine RBC (test code = 38125-8) NONE 0-[address] [facility] HospitalUrine Alsghqja2001-71-00 18:54:00* Test Item Value Reference Range Interpretation Comments Urine Bacteria (test code = 34789-6) FEW NONE [facility] HospitalUrine Epithelial Cotvj4709-17-90 18:54:00 * Test Item Value Reference Range Interpretation Comments Urine Epithelial Cells (test code = 25384-6) FEW NONE [facility] HospitalCreatine Kinase RK3931-47-52 18:44:00* Test Item Value Reference Range Interpretation Comments Creatine Kinase MB (test code = 27242-8) 1.00 0-5.[address] HospitalTroponin M7840-96-36 18:44:00* Test Item Value Reference Range Interpretation Comments Troponin I (test code = LMT8305) 0.002 0-0.[address] HospitalCHEST SINGLE (PORTABLE)2019-01-11 18:42:00 [place] [address] Patient Name: KALYANI TALAVERA MR #: [id number] : 1955 Age/Sex: 63/F Req #: [id number] Adm Physician: Ordered by: FLO TOLBERT MD Report #: [id number] Location: ER Room/Bed: Procedure: [id number] DX/C HEST SINGLE (PORTABLE) Exam Date: Exam [...] 01/11/191842 COPY TO: FLO TOLBERT MD Creatine Laoich3882-83-42 18:39:00* Test Item Value Reference Range Interpretation Comments Creatine Kinase (test code = 2157-6) 29 29-[address] [facility] HospitalUrine Wlngv0482-47-94 18:38:00* Test Item Value Reference Range Interpretation Comments Urine Color (test code = 5778-6) YELLOW YELLOW [facility] HospitalUrine Cimtigo6123-17-75 18:38:00* Test Item Value Reference Range Interpretation Comments Urine Clarity (test code = 59193-1) CLEAR CLEAR [facility] HospitalUrine Specific Qmhkicj5112-39-91 18:38:00 * Test Item Value Reference Range Interpretation Comments Urine Specific [place] (test code = 5811-5) 1.010 1.010-1.[address] [facility] HospitalUrine rP6878-63-50 18:38:00* Test Item Value Reference Range Interpretation Comments Urine pH (test code = 29324-6) 6 5-[address] [facility] HospitalUrine Leukocyte Ewtsieha5902-26-89 18:38:00* Test Item Value Reference Range Interpretation Comments Urine Leukocyte Esterase (test code = 18970-0) NEGATIVE NEGATIV E [facility] HospitalUrine Rzcpvlz1615-19-95 18:38:00* Test Item Value Reference Range Interpretation Comments Urine Nitrite (test code = 63090-0) NEGATIVE NEGATIVE [facility] HospitalUrine Tgphtdl4280-33-58 18:38:00* Test Item Value Reference Range Interpretation Comments Urine Protein (test code = 38138-5) NEGATIVE NEGATIVE [facility] HospitalUrine Glucose (UA)2019-01-11 18:38:00* Test Item Value Reference Range Interpretation Comments Urine Glucose (UA) (test code = 69383-7) 3+ NEGATIVE [facility] HospitalUrine Yhvblff0268-83-99 18:38:00* Test Item Value Reference Range Interpretation Comments Urine Ketones (test code = 45902-6) NEGATIVE NEGATIVE [facility] Ifcmuclcypxs4083-24-27 18:38:00* Test Item Value Reference Range Interpretation Comments Urine Urobilinogen (test code = 62821-8) 0.2 0.2-[address] [facility] HospitalUrine Nvorygvdt3669-46-54 18:38:00* Test Item Value Reference Range Interpretation Comments Urine Bilirubin (test code = 1977-8) NEGATIVE NEGATIVE [facility] HospitalUrine Zkgbq5257-48-79 18:38:00* Test Item Value Reference Range Interpretation Comments Urine Blood (test code = 27395-1) NEGATIVE NEGATIVE [facility] HospitalProthrombin Pxvj2428-29-04 18:32:00* Test Item Value Reference Range Interpretation Comments Prothrombin Time (test code = 5902-2) 12.7 11.9-14.[address] [facility] HospitalProthromb Time International Ratio 2019-01-11 18:32:00* Test Item Value Reference Range Interpretation Comments Prothromb Time International Ratio (test code = 6301-6) 0.91 Oral Anticoagulant Therapy INR Values:1. Low Intensity Therapy 1.5 - 2.02 . Moderate Intensity Therapy 2.0 - 3.03. High Intensity Therapy(1) 2.5 - 3. 54. High Intensity Therapy(2) 3.0 - 4.05. Panic Value INR > 5.[address] [facility] HospitalActivated Partial Thromboplast Time 2019-01-11 18:32:00* Test Item Value Reference Range Interpretation Comments Activated Partial Thromboplast Time (test code = 21943-2) 24.1 23.8-35.[address] [facility] HospitalProthrombin Xnit7835-00-45 18:32:00* Test Item Value Reference Range Interpretation Comments Prothrombin Time (test code = 5902-2) 12.7 11.9-14.[address] [facility] [facility] HospitalProthromb Time International Ratio 2019-01-11 18:32:00* Test Item Value Reference Range Interpretation Comments Prothromb Time International Ratio (test code = 6301-6) 0.91 Oral Anticoagulant Therapy INR Values:1. Low Intensity Therapy 1.5 - 2.02 . Moderate Intensity Therapy 2.0 - 3.03. High Intensity Therapy(1) 2.5 - 3. 54. High Intensity Therapy(2) 3.0 - 4.05. Panic Value INR > 5.[address] [facility] HospitalActivated Partial Thromboplast Time 2019-01-11 18:32:00* Test Item Value Reference Range Interpretation Comments Activated Partial Thromboplast Time (test code = 54866-7) 24.1 23.8-35.5 [facility] [facility] HospitalProthrombin Vzli1687-74-51 18:32:00* Test Item Value Reference Range Interpretation Comments Prothrombin Time (test code = 5902-2) 12.7 11.9-14.[address] [facility] HospitalProthromb Time International Ratio 2019-01-11 18:32:00* Test Item Value Reference Range Interpretation Comments Prothromb Time International Ratio (test code = 6301-6) 0.91 Oral Anticoagulant Therapy INR Values:1. Low Intensity Therapy 1.5 - 2.02 . Moderate Intensity Therapy 2.0 - 3.03. High Intensity Therapy(1) 2.5 - 3. 54. High Intensity Therapy(2) 3.0 - 4.05. Panic Value INR > 5.[address] [facility] [facility] HospitalActivated Partial Thromboplast Time 2019-01-11 18:32:00* Test Item Value Reference Range Interpretation Comments Activated Partial Thromboplast Time (test code = 21389-5) 24.1 23.8-35.[address] [facility] HospitalProthrombin [id number] 18:32:00* Test Item Value Reference Range Interpretation Comments Prothrombin Time (test code = 5902-2) 12.7 11.9-14.[address] [facility] HospitalProthromb Time International Ratio 2019-01-11 18:32:00* Test Item Value Reference Range Interpretation Comments Prothromb Time International Ratio (test code = 6301-6) 0.91 Oral Anticoagulant Therapy INR Values:1. Low Intensity Therapy 1.5 - 2.02 . Moderate Intensity Therapy 2.0 - 3.03. High Intensity Therapy(1) 2.5 - 3. 54. High Intensity Therapy(2) 3.0 - 4.05. Panic Value INR > 5.[address] [facility] [facility] HospitalActivated Partial Thromboplast Time 2019-01-11 18:32:00* Test Item Value Reference Range Interpretation Comments Activated Partial Thromboplast Time (test code = 65450-3) 24.1 23.8-35.[address] [facility] HospitalProthrombin Nyzv0366-71-75 18:32:00* Test Item Value Reference Range Interpretation Comments Prothrombin Time (test code = 5902-2) 12.7 11.9-14.[address] [facility] HospitalProthromb Time International Ratio 2019-01-11 18:32:00* Test Item Value Reference Range Interpretation Comments Prothromb Time International Ratio (test code = 6301-6) 0.91 Oral Anticoagulant Therapy INR Values:1. Low Intensity Therapy 1.5 - 2.02 . Moderate Intensity Therapy 2.0 - 3.03. High Intensity Therapy(1) 2.5 - 3. 54. High Intensity Therapy(2) 3.0 - 4.05. Panic Value INR > 5.[address] [facility] [facility] HospitalActivated Partial Thromboplast Time 2019-01-11 18:32:00* Test Item Value Reference Range Interpretation Comments Activated Partial Thromboplast Time (test code = 84676-0) 24.1 23.8-35.[address] [facility] HospitalProthrombin [id number] 18:32:00* Test Item Value Reference Range Interpretation Comments Prothrombin Time (test code = 5902-2) 12.7 11.9-14.[address] [facility] HospitalProthromb Time International Ratio 2019-01-11 18:32:00* Test Item Value Reference Range Interpretation Comments Prothromb Time International Ratio (test code = 6301-6) 0.91 Oral Anticoagulant Therapy INR Values:1. Low Intensity Therapy 1.5 - 2.02 . Moderate Intensity Therapy 2.0 - 3.03. High Intensity Therapy(1) 2.5 - 3. 54. High Intensity Therapy(2) 3.0 - 4.05. Panic Value INR > 5.[address] [facility] [facility] HospitalActivated Partial Thromboplast Time 2019-01-11 18:32:00* Test Item Value Reference Range Interpretation Comments Activated Partial Thromboplast Time (test code = 34776-0) 24.1 23.8-35.[address] [facility] HospitalProthrombin Vsmv8619-95-01 18:32:00* Test Item Value Reference Range Interpretation Comments Prothrombin Time (test code = 5902-2) 12.7 11.9-14.[address] [facility] HospitalProthromb Time International Ratio 2019-01-11 18:32:00* Test Item Value Reference Range Interpretation Comments Prothromb Time International Ratio (test code = 6301-6) 0.91 Oral Anticoagulant Therapy INR Values:1. Low Intensity Therapy 1.5 - 2.02 . Moderate Intensity Therapy 2.0 - 3.03. High Intensity Therapy(1) 2.5 - 3. 54. High Intensity Therapy(2) 3.0 - 4.05. Panic Value INR > 5.[address] [facility] [facility] HospitalActivated Partial Thromboplast Time 2019-01-11 18:32:00* Test Item Value Reference Range Interpretation Comments Activated Partial Thromboplast Time (test code = 98107-4) 24.1 23.8-35.5 [facility] 2 [id number] 17:48:00 [facility] [address] [address] Patient Name: KALYANI TALAVERA MR #: [id number] : 1955 Age/Sex: 63/F Req #: [id number] Adm Physician: Ordered by: BOYD NICHOLS BIOCHEMICAL ENGINEER Report #: [id number] Location: ER Room/Bed: Procedure: [id number] D X/CHEST 2 VIEWS Exam Date: 01/10/19 Exam Time: 1724 REPORT STATUS: Signed EXAMINATIO N: CHEST 2 VIEWS INDICATION: Hyperglycemia crackles bases 16542 620 1724 COMPARISON: Chest x-ray 07/01/2018 FINDINGS: [...] 5:50 PM Dictated By: NOEL COLE MD 1750 Transcribed By: JIM on 01/10/191749 COPY T O: BOYD NICHOLS BIOCHEMICAL ENGINEER B-Type Natriuretic Rrrbfjp3282-22-78 17:30:00* Test Item Value Reference Range Interpretation Comments B-Type Natriuretic Peptide (test code = 19166-0) 24.4 0-[address] [facility] HospitalB-Type Natriuretic Ovfbidc6184-80-19 17:30:00* Test Item Value Reference Range Interpretation Comments B-Type Natriuretic Peptide (test code = 13198-3) 24.4 0-[address] [facility] HospitalUrine LYT1402-09-14 17:03:00* Test Item Value Reference Range Interpretation Comments Urine WBC (test code = 5821-4) 0-5 0-[address] [facility] HospitalUrine [id number] 17:03:00* Test Item Value Reference Range Interpretation Comments Urine RBC (test code = 95771-9) NONE 0-[address] [facility] HospitalUrine Zrdglkyh4181-53-56 17:03:00* Test Item Value Reference Range Interpretation Comments Urine Bacteria (test code = 90970-3) MODERATE NONE H [facility] HospitalUrine Epithelial Zdyyd6632-36-05 17:03:00 * Test Item Value Reference Range Interpretation Comments Urine Epithelial Cells (test code = 21286-1) MANY NONE [facility] HospitalUrine Mwrly6695-75-98 17:00:00* Test Item Value Reference Range Interpretation Comments Urine Color (test code = 5778-6) YELLOW YELLOW [facility] HospitalUrine Nrntbnx3925-10-82 17:00:00* Test Item Value Reference Range Interpretation Comments Urine Clarity (test code = 85432-7) CLEAR CLEAR [facility] HospitalUrine Specific Xhpncie6912-95-56 17:00:00 * Test Item Value Reference Range Interpretation Comments Urine Specific [place] (test code = 5811-5) 1.020 1.010-1.[address] [facility] HospitalUrine aE0599-00-31 17:00:00* Test Item Value Reference Range Interpretation Comments Urine pH (test code = 55638-8) 6 5-[address] [facility] HospitalUrine Leukocyte Fnsjcutn8247-03-47 17:00:00* Test Item Value Reference Range Interpretation Comments Urine Leukocyte Esterase (test code = 16920-9) NEGATIVE NEGATIV E [facility] HospitalUrine Xvwngfk1106-98-87 17:00:00* Test Item Value Reference Range Interpretation Comments Urine Nitrite (test code = 96216-6) NEGATIVE NEGATIVE [facility] HospitalUrine Bnyzrhd2120-32-51 17:00:00* Test Item Value Reference Range Interpretation Comments Urine Protein (test code = 94356-4) NEGATIVE NEGATIVE [facility] HospitalUrine Glucose (UA)2019-01-10 17:00:00* Test Item Value Reference Range Interpretation Comments Urine Glucose (UA) (test code = 70329-8) 3+ NEGATIVE [facility] HospitalUrine Iqgmvyd9042-48-61 17:00:00* Test Item Value Reference Range Interpretation Comments Urine Ketones (test code = 04748-2) NEGATIVE NEGATIVE [facility] Obsjibhcttls1375-74-80 17:00:00* Test Item Value Reference Range Interpretation Comments Urine Urobilinogen (test code = 80863-3) 0.2 0.2-[address] [facility] HospitalUrine Vttzqyrbp6013-44-42 17:00:00* Test Item Value Reference Range Interpretation Comments Urine Bilirubin (test code = 1977-8) NEGATIVE NEGATIVE [facility] HospitalUrine Mvlaz4735-55-54 17:00:00* Test Item Value Reference Range Interpretation Comments Urine Blood (test code = 89074-2) NEGATIVE NEGATIVE [facility] HospitalCreatine Kinase CA1201-91-46 16:38:00* Test Item Value Reference Range Interpretation Comments Creatine Kinase MB (test code = 32507-1) 1.60 0-5.[address] [facility] HospitalTroponin H1409-79-05 16:38:00* Test Item Value Reference Range Interpretation Comments Troponin I (test code = VBM4695) 0.007 0-0.300 [facility] Centerodium Dfual4553-44-31 16:33:00* Test Item Value Reference Range Interpretation Comments Sodium Level (test code = 2951-2) 135 136-[address] [facility] HospitalPotassium Rukud3651-72-69 16:33:00* Test Item Value Reference Range Interpretation Comments Potassium Level (test code = 2823-3) 4.9 3.5-5.[address] [facility] HospitalChloride Xjwlq5922-04-82 16:33:00* Test Item Value Reference Range Interpretation Comments Chloride Level (test code = 2075-0) 102 98-[address] [facility] HospitalCarbon Dioxide Hxugh3022-60-27 16:33:00* Test Item Value Reference Range Interpretation Comments Carbon Dioxide Level (test code = 2028-9) 21 22-[address] [facility] HospitalAnion Yfu7053-21-37 16:33:00* Test Item Value Reference Range Interpretation Comments Anion Gap (test code = 49438-2) 16.9 8-[address] [facility] HospitalBlood Urea Mpofswrz9681-19-23 16:33:00* Test Item Value Reference Range Interpretation Comments Blood Urea Nitrogen (test code = 3094-0) 31 7-[address] [facility] HospitalCreatinine2019-06-20 16:33:00* Test Item Value Reference Range Interpretation Comments Creatinine (test code = 2160-0) 1.16 0.57-1.[address] [facility] HospitalBUN/Creatinine Bqafa5616-73-17 16:33:00* Test Item Value Reference Range Interpretation Comments BUN/Creatinine Ratio (test code = 3097-3) 27 6-[address] [facility] HospitalEstimat Glomerular Filtration Rate 2019-01-10 16:33:00* Test Item Value Reference Range Interpretation Comments Estimat Glomerular Filtration Rate (test code = 004983421) 47 >60 L Ranges were taken from the National Kidney Disease Education Program and the [facility] literature.Reference ranges:60 or greater: Uenidm66-80 ( for 3 consecutive months): Chronic kidney disease 15 or less: Kidney failureCHI [facility] HospitalGlucose Ejrgx8602-34-22 16:33:00* Test Item Value Reference Range Interpretation Comments Glucose Level (test code = YFZ4400) 326 74-[address] [facility] HospitalCalcium Rfvnn7150-52-42 16:33:00* Test Item Value Reference Range Interpretation Comments Calcium Level (test code = 80785-4) 9.7 8.4-10.[address] [facility] HospitalTotal Ydtqmjjzz3172-57-74 16:33:00* Test Item Value Reference Range Interpretation Comments Total Bilirubin (test code = 1975-2) 0.3 0.2-1.[address] [facility] HospitalAspartate Amino Transf (AST/SGOT) 2019-01-10 16:33:00* Test Item Value Reference Range Interpretation Comments Aspartate Amino Transf (AST/SGOT) (test code = Aspartate Amino Transf (AST/SGOT)) 19 5-[address] [facility] HospitalAlanine Aminotransferase (ALT/SGPT) 2019-01-10 16:33:00* Test Item Value Reference Range Interpretation Comments Alanine Aminotransferase (ALT/SGPT) (test code = 1742-6) 22 0-[address] [facility] HospitalTotal Rodwmca6805-28-00 16:33:00* Test Item Value Reference Range Interpretation Comments Total Protein (test code = 2885-2) 7.1 6.5-8.[address] [facility] HospitalAlbumin2019-06-20 16:33:00* Test Item Value Reference Range Interpretation Comments Albumin (test code = 1751-7) 3.5 3.5-5.[address] [facility] HospitalGlobulin2019-06-20 16:33:00* Test Item Value Reference Range Interpretation Comments Globulin (test code = 84709-5) 3.6 2.3-3.[address] [facility] HospitalAlbumin/Globulin Aehoz1324-56-22 16:33:00 * Test Item Value Reference Range Interpretation Comments Albumin/Globulin Ratio (test code = 1759-0) 1.0 0.8-2.[address] [facility] HospitalAlkaline Uogcoehrvsd3746-57-65 16:33:00* Test Item Value Reference Range Interpretation Comments Alkaline Phosphatase (test code = 6768-6) 81 40-[address] [facility] HospitalCreatine Iyeapz2499-44-80 16:33:00* Test Item Value Reference Range Interpretation Comments Creatine Kinase (test code = 2157-6) 35 29-[address] [facility] HospitalWhite Blood Untbq9497-12-81 16:22:00* Test Item Value Reference Range Interpretation Comments White Blood Count (test code = 6690-2) 5.88 4.8-10.[address] [facility] HospitalRed Blood Zmque5766-79-05 16:22:00* Test Item Value Reference Range Interpretation Comments Red Blood Count (test code = 789-8) 5.19 3.6-5.[address] [facility] HospitalHemoglobin2019-06-20 16:22:00* Test Item Value Reference Range Interpretation Comments Hemoglobin (test code = 41414-1) 13.0 12.0-16.[address] [facility] HospitalHematocrit2019-06-20 16:22:00* Test Item Value Reference Range Interpretation Comments Hematocrit (test code = 4544-3) 42.1 34.2-44.[address] [facility] HospitalMean Corpuscular Mevgao9972-16-46 16:22:00* Test Item Value Reference Range Interpretation Comments Mean Corpuscular Volume (test code = 787-2) 81.1 81-[address] [facility] HospitalMean Corpuscular Tvhmxupfkp3493-34-08 16:22:00* Test Item Value Reference Range Interpretation Comments Mean Corpuscular Hemoglobin (test code = 785-6) 25.0 28-[address] [facility] HospitalMean Corpuscular Hemoglobin Concent 2019-01-10 16:22:00* Test Item Value Reference Range Interpretation Comments Mean Corpuscular Hemoglobin Concent (test code = 786-4) 30.9 31-[address] [facility] HospitalRed Cell Distribution Cmcdd7914-21-81 16:22:00* Test Item Value Reference Range Interpretation Comments Red Cell Distribution Width (test code = 51218-0) 15.0 11.7 -14.[address] [facility] HospitalPlatelet Mfkmn9998-89-08 16:22:00* Test Item Value Reference Range Interpretation Comments Platelet Count (test code = 777-3) 151 140-[address] [facility] HospitalNeutrophils (%) (Auto)2019-01-10 16:22:00 * Test Item Value Reference Range Interpretation Comments Neutrophils (%) (Auto) (test code = 40348-8) 66.5 38.7-80.[address] [facility] HospitalLymphocytes (%) (Auto)2019-01-10 16:22:00 * Test Item Value Reference Range Interpretation Comments Lymphocytes (%) (Auto) (test code = 736-9) 24.0 18.0-39.[address] [facility] HospitalMonocytes (%) (Auto)2019-01-10 16:22:00* Test Item Value Reference Range Interpretation Comments Monocytes (%) (Auto) (test code = 5905-5) 5.1 4.4-11.[address] [facility] HospitalEosinophils (%) (Auto)2019-01-10 16:22:00 * Test Item Value Reference Range Interpretation Comments Eosinophils (%) (Auto) (test code = 713-8) 2.7 0.0-6.[address] HospitalBasophils (%) (Auto)2019-01-10 16:22:00* Test Item Value Reference Range Interpretation Comments Basophils (%) (Auto) (test code = 706-2) 1.0 0.0-1.[address] [facility] HospitalIM GRANULOCYTES %2019-01-10 16:22:00* Test Item Value Reference Range Interpretation Comments IM GRANULOCYTES % (test code = IM GRANULOCYTES %) 0.7 0.0- 1.[address] [facility] HospitalNeutrophils # (Auto)2019-01-10 16:22:00* Test Item Value Reference Range Interpretation Comments Neutrophils # (Auto) (test code = 751-8) 3.9 2.1-6.[address] [facility] HospitalLymphocytes # (Auto)2019-01-10 16:22:00* Test Item Value Reference Range Interpretation Comments Lymphocytes # (Auto) (test code = 03562-6) 1.4 1.0-3.[address] HospitalMonocytes # (Auto)2019-01-10 16:22:00* Test Item Value Reference Range Interpretation Comments Monocytes # (Auto) (test code = 742-7) 0.3 0.2-0.[address] [facility] HospitalEosinophils # (Auto)2019-01-10 16:22:00* Test Item Value Reference Range Interpretation Comments Eosinophils # (Auto) (test code = 711-2) 0.2 0.0-0.[address] [facility] HospitalBasophils # (Auto)2019-01-10 16:22:00* Test Item Value Reference Range Interpretation Comments Basophils # (Auto) (test code = 704-7) 0.1 0.0-0.[address] [facility] HospitalAbsolute Immature Granulocyte (auto 2019-01-10 16:22:00* Test Item Value Reference Range Interpretation Comments Absolute Immature Granulocyte (auto (joseph t code = Absolute Immature Granulocyte (auto) 0.04 0-0.[address] [facility] HospitalGLUBED2019-06-15 03:55:00* Test Item Value Reference Range Interpretation Comments GLUBED (test code = GLUBED) 370 mg/dL 74-106 H Performed by certified first coat operator at [facility] AVALBG8435-65-17 03:55:00* Test Item Value Reference Range Interpretation Comments GLUBED (test code = GLUBED) 358 mg/dL 74-106 H Performed by certified first coat operator at [facility] BASIC METABOLIC FYHLU4417-40-19 03:09:00* Test Item Value Reference Range Interpretation [...] CA) 8.1 mg/dL 8.5-10.1 L HEPATIC FUNCTION UFPFU2981-85-23 03:09:00* Test Item Value Reference Range Interpretation [...] reference range due to change in reagent. ZSCVZOGP-P1165-92-15 03:09:00* Test Item Value Reference Range Interpretation Comments TROPONIN-I (test code = TROPI) <0.015 ng/mL 0-0.045 N BASIC METABOLIC SCIAB4598-26-53 03:01:00* Test Item Value Reference Range Interpretation [...] code = CA) mg/dL 8.5-10.1 HEPATIC FUNCTION SXSGY1651-09-88 03:01:00* Test Item Value Reference Range Interpretation [...] TOTAL (test code = ALKP) IUnit/L 45-117 XENFBUZK-E2666-08-15 03:01:00* Test Item Value Reference Range Interpretation Comments TROPONIN-I (test code = TROPI) ng/mL 0-0.045 CBC W/AUTO RWMZ2398-33-57 02:56:00* Test Item Value Reference Range Interpretation [...] (test code = MDIFF) NO CBC W/AUTO SQEM0433-98-04 02:51:00* Test Item Value Reference Range Interpretation [...] (test code = BA#) K/mm3 0.0-0.2 URINALYSIS GCMWDRSK7043-12-23 01:33:00* Test Item Value Reference Range Interpretation [...] Urine Source? Clean Catch- XR CHEST 1 L4414-72-28 01:00:00 FAX: Amish BoldenBonnie,Chris [phone] Ashley: St: REG FAX: Vince Jones DO Name: KALYANI TALAVERA [facility] : 1955 Age/S: 63/F [address] [facility] Unit #: [id number] Loc: [place] [address] Phys: Vince Jones DO Acct: [id number] Dis Date: Status: REG ER PHONE #: [phone] Exam Date: 01/05/2019 0045 FAX #: [phone] Reason: Altered Mental Status EXAMS: CPT CODE: [id number] XR CHEST 1 V 71949 LOCATION: Q15 HISTORY: 63-year-old female who presents with alteration of awareness. COMMENT: A frontal chest radiograph was obtained at 12:44 a.m., and compared to study of [facility] 2018. Central vascular congestion pattern with surrounding [...] Technologist: RT Yisel JONES (R) ate/Time/By: 01/05/2019 (010) : By: [email or web address] Orig Print D/T: S: 12/22 (0101) PAGE 1 Signed Repor t - XR CHEST 1 [id number] 01:00:00 FAX: Amish Nur, Ashley: St: [facility] FAX: Vince Jones DO Name: KALYANI TALAVERA [facility] : 1955 Age/S: 63/F [address] [facility] Unit #: [id number] Loc: [place] [address] Phys: Vince Jones DO Acct: [id number] Dis Date: Status: [facility] ER PHONE #: [phone] Exam Date: 01/05/2019 0045 FAX #: [phone] Reason: Altered Mental Status EXAMS: CPT CODE: [id number] XR CHEST 1 V 32132 LOCATION: Q15 HISTORY: 63-year-old female who presents with alteration of awareness. COMMENT: A frontal chest radiograph was obtained at 12:44 a.m., and compared to study of [facility] 2018. Central vascular congestion pattern with surrounding [...] Lucille Nur MD; Vince Jones DO Technologist: SAMPSON JONES) Trnscrd Calvin ate/Time/By: 01/05/2019 (99) : By: [email or web address] Orig Print D/T: S: 12/22 (0103) PAGE 1 Signed Repor t - XR CHEST 1 [id number] 01:00:00 FAX: Amish Nur, Ashley: St: [facility] FAX: Vince Jones DO Name: KALYANI TALAVERA [facility] : 1955 Age/S: 63/F [address] [facility] Unit #: [id number] Loc: [place] [address] Phys: Vince Jones DO Acct: [id number] Dis Date: Status: [facility] ER PHONE #: [phone] Exam Date: 01/05/201944 FAX #: [phone] Reason: Altered Mental Status EXAMS: CPT CODE: [id number] XR CHEST 1 V 72555 LOCATION: Q15 HISTORY: 63-year-old female who presents with alteration of awareness. COMMENT: A frontal chest radiograph was obtained at 12:44 a.m., and compared to study of [facility] 2018. Central vascular congestion pattern with surrounding [...] SCOOBY PARSONS RT(R) Trnscrd D ate/Time/By: 01/05/2019 (99) : By: [email or web address] Orig Print D/T: S: 12/22 (0101) PAGE [address] Signed Repor t - CT HEAD/BRAIN W/O [id number] 00:55:00 Name: KALYANI TALAVERA [facility] : 1955 Age/S: 63 / F [address] [facility] Unit #: [id number] Loc: [place] [address] Phys: Vince Jones DO Acct: [id number] Dis Date: Status: REG ER PHONE #: Exam Date: 01/05/201949 FAX #: [phone] Reason: Altered Mental Status EXAMS: CPT CODE: [id number] CT HEAD/BRAIN W/O CONT 31868 EXAM: - CT HEAD/BRAIN W/O CONT Location [...] 1 Signed Report (CONTINUED) Name: [facility] [place] [facility] 1955 Age/S: 63 / F [address] Unit #: [id number] Loc: [place] [address] Phys: Vince Jones DO Acct: [id number] Dis Date: Status: REG ER PHONE #: [phone] Exam Date: 01/05/201949 FAX #: [phone] Reason: Altered Mental Status EXAMS: CPT CODE: [id number] CT HEAD/BRAIN W/O CONT 73376 <Continued> CC: Lucille Nur MD; Vince Jones DO Technologist:Faizan Adame, RT(R)(CT) CTDI: DLP: Trnscb Date/Time: 01/05/2019 (54) [email or web address] Orig Print D/T: S: 01/05/2019 (005) PAGE 2 Signed Report - CT HEAD/BRAIN W/O [id number] 00:55:00 Name: KALYANI TALAVERA [facility] : 1955 Age/S: 63 / F [address] Unit #: [id number] Loc: [place] [address] Phys: Vince Jones DO Acct: [id number] Dis Date: Status: DEP ER PHONE #: [phone] Exam Date: 01/05/201949 FAX #: [phone] Reason: Altered Mental Status EXAMS: CPT CODE: [id number] CT HEAD/BRAIN W/O CONT 35781 EXAM: - CT HEAD/BRAIN W/O CONT Location [...] 1 Signed Report (CONTINUED) Name: KALYANI TALAVERA [facility] : 1955 Age/S: 63 / F [address] Unit #: [id number] Loc: [place] [address] Phys: Vince Jones DO Acct: [id number] Dis Date: Status: DEP ER PHONE #: [phone] Exam Date: 01/05/201949 FAX #: [phone] Reason: Altered Mental Status EXAMS: CPT CODE: [id number] CT HEAD/BRAIN W/O CONT 38401 <Continued> CC: Lucille Nur MD; Vince Jones DO Technologist:Faizan Adame RT(R)(CT) CTDI: DLP: Trnscb Date/Time: 01/05/2019 (54) [email or web address] Orig Print D/T: S: 01/05/2019 (57) PAGE 2 Signed Report - CT HEAD/BRAIN W/O [id number] 00:55:00 Name: KALYANI TALAVERA [facility] : 1955 Age/S: 63 / F [address] Unit #: [id number] Loc: [place] [address] Phys: Vince Jones DO Acct: [id number] Dis Date: Status: DEP ER PHONE #: [phone] Exam Date: 01/05/2019 0050 FAX #: [phone] Reason: Altered Mental Status EXAMS: CPT CODE: [id number] CT HEAD/BRAIN W/O CONT 78971 EXAM: - CT HEAD/BRAIN W/O CONT Location [...] 1 Signed Report (CONTINUED) Name: KALYANI TALAVERA [facility] : 1955 Age/S: 63 / F [address] Unit #: [id number] Loc: [place] [address] Phys: Vince Jones DO Acct: [id number] Dis Date: Status: DEP ER PHONE #: [phone] Exam Date: 01/05/2019 0050 FAX #: [phone] Reason: Altered Mental Status EXAMS: CPT CODE: [id number] CT HEAD/BRAIN W/O CONT 97237 <Continued> CC: Lucille Nur MD; Vince Jones DO Technologist:RT Susan(R)(CT) CTDI: DLP: Trnscb Date/Time: 01/05/2019 (0055) [email or web address] Orig Print D/T: S: 01/05/2019 (0058) PAGE 2 Signed Report GASTRIC,[id number] 16:33:00 RUN DATE: 11/16/18 [facility] PAGE 1 RUN TIME: 1633 Specimen Inqui ry RUN USER: INTERFACE PATIENT: KALYANI TALAVERA ACCT #: [id number] LOC: JOHN PAULU U #: [id number] AGE/SX: 63/F ROOM: RE11/15/18REG DR: Kb Bradford MD : 57 BED: DIS: STATUS: [place] TLOC: SPEC #: [id number] RECD: 11/15/18 STATUS: SHREYA BROWN #: [id number] MARILEE: 11/15/18-[address]: Kb Bradford MD ENTERED: 11/15/18 SP TYPE: GASTRIC BX OTHR DR: Lucille Torres MDORDERED: GROSS COPIES TO: Lucille Nur MD [address] [place] [address] Kb Bradford Si, MD [address] [address] PROCEDURES: GROSS ( 11/16/18) TISSUES: [...] WITH NO DISCRETE PATHOLOGIC ULCERATION RRB/sm D 2)06020, 19352 CONTINUED ON NEXT PAGE RUN DATE: 11/16/18 [facility] PAGE 2 RUN TIME: 1633 Specimen Inquiry RUN USER: INTERFACE SPEC #: [id number] PATIENT: KHANH TALAVERA #[id number] (Continued) MACROSC OPIC The first specimen is [...] cm, submitted as (2). GROSS PERFORMED AT [facility] [address] [place] [address] [phone] MICROSCOPIC All of the stains, inc luding any controls performed, stain appropriately. MICROSCOPIC PERFORMED AT [facility] [address] [place] [address] [phone] PERFORMING SITE Diagnosis perf ormed at: [facility] YANETH aceves [address] [place] [address] [phone] Signed SIGNATURE ON FILE Tristan Markham MD 11/16/18 1633 * * END OF REPORT [id number] 06:50:00* Test Item Value Reference Range Interpretation Comments GLUBED (test code = GLUBED) 292 mg/dL 74-106 H Performed by certified first coat operator at [facility] - XR RIBS UNI 2 V [id number] 14:33:00 FAX: Amish Nur Si [phone] Ashley: O St: REG Name: KALYANI CATES [facility] : [birth year] Age/S: 63/F [address] [facility] Unit #: [id number] Loc: [place] [address] Phys: Chris Nur MD Acct: [id number] Dis Date: Status: REG CLI PHONE #: [phone] Exam Date: 11/09/2018 1220 FAX #: [phone] Reason: PAIN EXAMS: CPT CODE: [id number] [place] RIBS UN[place] [address] [place] [address] HISTORY: Pain. NINA RISON: Chest x-ray from [...] Technologist: Claire santos RT(R) Trnscrd Date/Time/By: 11/09/2018 (9099) : By: [email or web address] Orig Print D/T: S: 11/09/2018 (7215) PAGE 1 Signed Report [id number] 17:05:00* Test Item Value Reference Range Interpretation Comments GLUBED (test code = GLUBED) 274 mg/dL 74-106 H Performed by certified first coat operator at [facility] [id number] 11:39:00* Test Item Value Reference Range Interpretation Comments GLUBED (test code = GLUBED) 284 mg/dL 74-106 H Performed by certified first coat operator at [facility] [id number] 07:48:00* Test Item Value Reference Range Interpretation Comments GLUBED (test code = GLUBED) 285 mg/dL 74-106 H Performed by certified first coat operator at [facility] [id number] 20:08:00* Test Item Value Reference Range Interpretation Comments GLUBED (test code = GLUBED) 252 mg/dL 74-106 H Performed by certified first coat operator at [facility] [id number] 16:09:00* Test Item Value Reference Range Interpretation Comments GLUBED (test code = GLUBED) 329 mg/dL 74-106 H Performed by certified first coat operator at [facility] BASIC METABOLIC [id number] 12:51:00* Test Item Value Reference Range Interpretation [...] CA) 8.6 mg/dL 8.5-10.1 N BASIC METABOLIC [id number] 12:40:00* Test Item Value Reference Range Interpretation [...] CALCIUM (test code = CA) mg/dL 8.5-10.1 [id number] 10:39:00* Test Item Value Reference Range Interpretation Comments GLUBED (test code = GLUBED) 281 mg/dL 74-106 H Performed by certified first coat operator at [facility] [id number] 07:54:00* Test Item Value Reference Range Interpretation Comments GLUBED (test code = GLUBED) 299 mg/dL 74-106 H Performed by certified first coat operator at [facility] [id number] 21:58:00* Test Item Value Reference Range Interpretation Comments TROPONIN-I (test code = TROPI) <0.015 ng/mL 0-0.045 N SPECIMEN COMMENTS: [id number] 20:26:00* Test Item Value Reference Range Interpretation Comments GLUBED (test code = GLUBED) 340 mg/dL 74-106 H Performed by certified first coat operator at [facility] [id number] 17:09:00* Test Item Value Reference Range Interpretation Comments GLUBED (test code = GLUBED) 370 mg/dL 74-106 H Performed by certified first coat operator at [facility] [id number] 10:49:00* Test Item Value Reference Range Interpretation Comments GLUBED (test code = GLUBED) 351 mg/dL 74-106 H Performed by certified first coat operator at [facility] [id number] 09:54:00* Test Item Value Reference Range Interpretation Comments GLUBED (test code = GLUBED) 304 mg/dL 74-106 H Performed by certified first coat operator at [facility] [id number] 09:20:00* Test Item Value Reference Range Interpretation Comments TROPONIN-I (test code = TROPI) <0.015 ng/mL 0-0.045 N COMMENTS TO DATA RECOVERY PLANNER: COLLECT 3 HOURS AFTER PREVIOUS [id number] 03:55:00* Test Item Value Reference Range Interpretation Comments TROPONIN-I (test code = TROPI) <0.015 ng/mL 0-0.045 N COMMENTS TO DATA RECOVERY PLANNER: COLLECT 3 HOURS AFTER PREVIOUS SAMPLECBC W/AUTO [id number] 01:32:00* Test Item Value Reference Range Interpretation [...] = MDIFF) NO, ONLY SCAN NEEDED DIFFERENTIAL [id number] 01:32:00* Test Item Value Reference Range Interpretation Comments STAIN ACCEPTABILITY (test code = STN ACCEPTABLE) STAIN ACCEPTABLE POLYCHROMASIA (test code = POLC) 1+ HYPOCHROMIA (test code = HYPO) 1+ ANISOCYTOSIS (test code = ANISO) 1+ MICROCYTOSIS (test code = MICR) 1+ PLATELET ESTIMATE (test code = PLTEST) ADEQUATE PLATELET MORPHOLOGY (test code = PLTMORPH) NORMAL URINALYSIS [id number] 01:10:00* Test Item Value Reference Range Interpretation [...] SEEN #/HPF NONE Urine Source? Clean CatchURINALYSIS [id number] 01:06:00* Test Item Value Reference Range Interpretation [...] per HPF NONE Urine Source? Clean CatchURINALYSIS [id number] 01:03:00* Test Item Value Reference Range Interpretation [...] BACU) per HPF NONE Urine Source? Clean [id number] 00:46:00* Test Item Value Reference Range Interpretation Comments GLUBED (test code = GLUBED) 415 mg/dL 74-106 H Performed by certified first coat operator at [facility] VENOUS BLOOD [id number] 23:47:00* Test Item Value Reference Range Interpretation [...] METHGB) 0.4 % 0.0-1.50 N COMPREHENSIVE METABOLIC [id number] 23:25:00* Test Item Value Reference Range Interpretation [...] 537 mg/dL 74-106 Re sults called to [id number] by YogomeLAB.JP1 10/30/18 2325Critical results verified and read back [...] reference range due to change in reagent. [id number] 23:25:00* Test Item Value Reference Range Interpretation Comments LIPASE (test code = LIP) 113 U/L 73.0-393.0 N [id number] 23:25:00* Test Item Value Reference Range Interpretation Comments CKMB (test code = CKMBT) < 1.0 ng/mL 0-6.0 N [id number] 23:25:00* Test Item Value Reference Range Interpretation Comments TROPONIN-I (test code = TROPI) <0.015 ng/mL 0-0.045 N CBC W/AUTO [id number] 23:21:00* Test Item Value Reference Range Interpretation [...] = MDIFF) NO, ONLY SCAN NEEDED DIFFERENTIAL [id number] 23:21:00* Test Item Value Reference Range Interpretation Comments STAIN ACCEPTABILITY (test code = STN ACCEPTABLE) CABOT RINGS (test code = CAB) MORPHOLOGY COMMENT (test code = MOC) PLATELET ESTIMATE (test code = PLTEST) PLATELET MORPHOLOGY (test code = PLTMORPH) CBC W/AUTO [id number] 23:21:00* Test Item Value Reference Range Interpretation [...] = MDIFF) NO, ONLY SCAN NEEDED DIFFERENTIAL [id number] 23:21:00* Test Item Value Reference Range Interpretation Comments STAIN ACCEPTABILITY (test code = STN ACCEPTABLE) CABOT RINGS (test code = CAB) MORPHOLOGY COMMENT (test code = MOC) PLATELET ESTIMATE (test code = PLTEST) PLATELET MORPHOLOGY (test code = PLTMORPH) CBC W/AUTO [id number] 23:21:00* Test Item Value Reference Range Interpretation [...] = MDIFF) NO, ONLY SCAN NEEDED DIFFERENTIAL [id number] 23:21:00* Test Item Value Reference Range Interpretation Comments STAIN ACCEPTABILITY (test code = STN ACCEPTABLE) MORPHOLOGY COMMENT (test code = MOC) PLATELET ESTIMATE (test code = PLTEST) PLATELET MORPHOLOGY (test code = PLTMORPH) CBC W/AUTO [id number] 23:20:00* Test Item Value Reference Range Interpretation [...] = MDIFF) NO, ONLY SCAN NEEDED DIFFERENTIAL [id number] 23:20:00* Test Item Value Reference Range Interpretation Comments STAIN ACCEPTABILITY (test code = STN ACCEPTABLE) CABOT RINGS (test code = CAB) MORPHOLOGY COMMENT (test code = MOC) PLATELET ESTIMATE (test code = PLTEST) PLATELET MORPHOLOGY (test code = PLTMORPH) CBC W/AUTO [id number] 23:08:00* Test Item Value Reference Range Interpretation [...] code = BA#) K/mm3 0.0-0.2 COMPREHENSIVE METABOLIC [id number] 23:06:00* Test Item Value Reference Range Interpretation [...] TOTAL (test code = ALKP) IUnit/L 45-117 [id number] 23:06:00* Test Item Value Reference Range Interpretation Comments LIPASE (test code = LIP) U/L 73.0-393.0 [id number] 23:06:00* Test Item Value Reference Range Interpretation Comments CKMB (test code = CKMBT) ng/mL 0-6.0 [id number] 23:06:00* Test Item Value Reference Range Interpretation Comments TROPONIN-I (test code = TROPI) ng/mL 0-0.045 - XR CHEST 2 [id number] 23:03:00 FAX: Amish Nur, Ashley: St: [facility] FAX: Leonora Norton [phone] Name: KALYANI TALAVERA [facility] : 1955 Age/S: 63/F [address] [facility] Unit #: [id number] Loc: [place] [address] Phys: Leonora Goins MD Acct: [id number] Dis Date: Status: REG ER PHONE #: [phone] Exam Date: 10/30/2018 224 FAX #: [phone] Reason: cp EXAMS: CPT CODE: [id number] XR CHEST 2 V 43277 REASON FOR EXAM: cp Exam Order Date: 10/30/2018 10:08 PM Ordering M.DMayi: Leonora Goins MD PROCEDURE: [...] MD Technologist: Janeen Dunbar Trnscrd Date/Time/By: 10/30/2018 (4320) : By: LeanneVTL Orig Print D/T: S: 10/30/2018 (1045) PAGE 1 Signed Report GLUBED 2018-10-12 11:21:00* Test Item Value Reference Range Interpretation Comments GLUBED (test code = GLUBED) 189 mg/dL 74-106 H Performed by certified first coat operator at [facility] [id number] 10:37:00* Test Item Value Reference Range Interpretation Comments GLUBED (test code = GLUBED) 190 mg/dL 74-106 H Performed by certified first coat operator at [facility] [id number] 21:08:00* Test Item Value Reference Range Interpretation Comments GLUBED (test code = GLUBED) 156 mg/dL 74-106 H Performed by certified first coat operator at [facility] [id number] 16:01:00* Test Item Value Reference Range Interpretation Comments GLUBED (test code = GLUBED) 122 mg/dL 74-106 H Performed by certified first coat operator at [facility] [id number] 12:56:00* Test Item Value Reference Range Interpretation Comments GLUBED (test code = GLUBED) 173 mg/dL 74-106 H Performed by certified first coat operator at [facility] [id number] 07:28:00* Test Item Value Reference Range Interpretation Comments GLUBED (test code = GLUBED) 221 mg/dL 74-106 H Performed by certified first coat operator at [facility] [id number] 20:54:00* Test Item Value Reference Range Interpretation Comments GLUBED (test code = GLUBED) 261 mg/dL 74-106 H Performed by certified first coat operator at [facility] [id number] 15:03:00* Test Item Value Reference Range Interpretation Comments GLUBED (test code = GLUBED) 167 mg/dL 74-106 H Performed by certified first coat operator at [facility] [id number] 11:23:00* Test Item Value Reference Range Interpretation Comments GLUBED (test code = GLUBED) 206 mg/dL 74-106 H Performed by certified first coat operator at [facility] BASIC METABOLIC [id number] 07:57:00* Test Item Value Reference Range Interpretation [...] code = CA) 8.5 mg/dL 8.5-10.1 N [id number] 07:29:00* Test Item Value Reference Range Interpretation Comments GLUBED (test code = GLUBED) 239 mg/dL 74-106 H Performed by certified first coat operator at [facility] [id number] 05:00:00* Test Item Value Reference Range Interpretation Comments GLUBED (test code = GLUBED) 234 mg/dL 74-106 H Performed by certified first coat operator at [facility] [id number] 20:10:00* Test Item Value Reference Range Interpretation Comments GLUBED (test code = GLUBED) 204 mg/dL 74-106 H Performed by certified first coat operator at [facility] [id number] 17:08:00* Test Item Value Reference Range Interpretation Comments GLUBED (test code = GLUBED) 243 mg/dL 74-106 H Performed by certified first coat operator at [facility] T4 [id number] 14:42:00* Test Item Value Reference Range Interpretation Comments T4 FREE (test code = T4F) 7.60 ng/dL 0.76-1.46 H THYROID STIMULATING [id number] 14:42:00* Test Item Value Reference Range Interpretation Comments THYROID STIMULATING HORMONE (test code = TSH) 0.812 uIU/mL 0.36-3.7 4 N TSH REFERENCE RANGES: EUTHYROID: 0.35 - 4.3 mIU/mL HYPO : > 5.5 mIU/mL HYPER : < 0.35 mIU/mL T4 [id number] 14:03:00* Test Item Value Reference Range Interpretation Comments T4 FREE (test code = T4F) ng/dL 0.76-1.46 THYROID STIMULATING [id number] 14:03:00* Test Item Value Reference Range Interpretation Comments THYROID STIMULATING HORMONE (test code = TSH) 0.812 uIU/mL 0.36-3.7 4 N TSH REFERENCE RANGES: EUTHYROID: 0.35 - 4.3 mIU/mL HYPO : > 5.5 mIU/mL HYPER : < 0.35 mIU/mL [id number] 12:01:00* Test Item Value Reference Range Interpretation Comments GLUBED (test code = GLUBED) 232 mg/dL 74-106 H Performed by certified first coat operator at [facility] [id number] 07:31:00* Test Item Value Reference Range Interpretation Comments GLUBED (test code = GLUBED) 253 mg/dL 74-106 H Performed by certified first coat operator at [facility] BASIC METABOLIC [id number] 05:59:00* Test Item Value Reference Range Interpretation [...] CA) 8.4 mg/dL 8.5-10.1 L BASIC METABOLIC [id number] 05:56:00* Test Item Value Reference Range Interpretation [...] CALCIUM (test code = CA) mg/dL 8.5-10.1 [id number] 03:37:00* Test Item Value Reference Range Interpretation Comments GLUBED (test code = GLUBED) 302 mg/dL 74-106 H Performed by certified first coat operator at [facility] T4 [id number] 20:00:00* Test Item Value Reference Range Interpretation Comments T4 FREE (test code = T4F) 0.97 ng/dL 0.76-1.46 N THYROID STIMULATING [id number] 20:00:00* Test Item Value Reference Range Interpretation Comments THYROID STIMULATING HORMONE (test code = TSH) 0.336 uIU/mL 0.36-3.7 4 L TSH REFERENCE RANGES: EUTHYROID: 0.35 - 4.3 mIU/mL HYPO : > 5.5 mIU/mL HYPER : < 0.35 mIU/mL [id number] 19:59:00* Test Item Value Reference Range Interpretation Comments GLYCOSYLATED HEMOGLOBIN (HA1C) (test code = GLYHGB) 9.7 % HbA1 4. 8-6.0 H ESTIMATED AVERAGE GLUCOSE (test code = EAG) 232 MG/DL [id number] 19:43:00* Test Item Value Reference Range Interpretation Comments GLUBED (test code = GLUBED) 301 mg/dL 74-106 H Performed by certified first coat operator at [facility] [id number] 17:38:00* Test Item Value Reference Range Interpretation Comments GLUBED (test code = GLUBED) 242 mg/dL 74-106 H Performed by certified first coat operator at [facility] [id number] 13:43:00* Test Item Value Reference Range Interpretation Comments TROPONIN-I (test code = TROPI) <0.015 ng/mL 0-0.045 N COMMENTS TO DATA RECOVERY PLANNER: COLLECT 3 HOURS AFTER PREVIOUS [id number] 13:19:00* Test Item Value Reference Range Interpretation Comments GLUBED (test code = GLUBED) 243 mg/dL 74-106 H Performed by certified first coat operator at [facility] [id number] 10:44:00* Test Item Value Reference Range Interpretation Comments TROPONIN-I (test code = TROPI) <0.015 ng/mL 0-0.045 N COMMENTS TO DATA RECOVERY PLANNER: COLLECT 3 HOURS AFTER PREVIOUS [id number] 08:17:00* Test Item Value Reference Range Interpretation Comments GLUBED (test code = GLUBED) 164 mg/dL 74-106 H Performed by certified first coat operator at [facility] BASIC METABOLIC [id number] 08:09:00* Test Item Value Reference Range Interpretation [...] mg/dL 74-106 LL Re sults called to [id number] by JUDITH.AMBAR 10/08/18 0807Critical results verified and read back [...] CA) 8.5 mg/dL 8.5-10.1 N HEPATIC FUNCTION [id number] 08:09:00* Test Item Value Reference Range Interpretation [...] reference range due to change in reagent. [id number] 08:09:00* Test Item Value Reference Range Interpretation Comments LIPASE (test code = LIP) 70 U/L 73.0-393.0 L [id number] 08:09:00* Test Item Value Reference Range Interpretation [...] into account the patients history. B-TYPE NATRIURETIC [id number] 06:52:00* Test Item Value Reference Range Interpretation Comments B-TYPE NATRIURETIC PEPTIDE (test code = BNP) 10.07 pgram/mL 0-100 N [id number] 06:43:00* Test Item Value Reference Range Interpretation Comments GLUBED (test code = GLUBED) 36 mg/dL 74-106 LL Performed by certified first coat operator at [facility] URINALYSIS [id number] 06:19:00* Test Item Value Reference Range Interpretation [...] FEW #/LPF FEW Urine Source? Clean CatchLACTIC [id number] 06:15:00* Test Item Value Reference Range Interpretation Comments LACTIC ACID (test code = LACT) 0.9 mmol/L 0.4-1.9 N - XR CHEST 1 [id number] 05:44:00 FAX: Amish Nur, Ashley: St: REG Name: KALYANI CATES [facility] : [birth year] Age/S: 63/F [address] [facility] Unit #: [id number] Loc: [place] [address] Phys: Elena Cedeño MD Acct: [id number] Dis Date: Status: REG ER PHONE #: [phone] Exam Date: 10/08/2018 05 FAX #: [phone] Reason: CHEST PAIN EXAMS: CPT CODE: [id number] XR CHEST 1 V 96236 HISTORY: Chest pain. Location: C3 COMPARISON:09/18/2017 FINDINGS: There is mild cardiomegaly. There is elevation of the right hemid iaphragm. No pneumothorax. No focal consolidation. No other changes. IMPRESSION: 1. Elevated right hemidiaphragm. Mi ld cardiomegaly. No other acute abnormality. at 0540 Report ed and signed by: Kizzy Dietrich MD CC: Lucille Nur MD Technologist: Marcelino Reid RT(R) Trnscrd Date/Time/By: 10/08/2018 (0544) : By: Festus XC2 Orig Print D/T: S: 10/08/2018 (1417) PAGE 1 Signed Report PROTHROMBIN [id number] 05:38:00* Test Item Value Reference Range Interpretation [...] (2.5-3.5) IS PATIENT ON ANTICOAGULANTS? NTHROMBOPLASTIN TIME [id number] 05:38:00* Test Item Value Reference Range Interpretation Comments THROMBOPLASTIN TIME PARTIAL (test code = PTT) 32.9 seconds 25.0-36. 5 N IS PATIENT ON ANTICOAGULANTS? [id number] 05:38:00* Test Item Value Reference Range Interpretation [...] -Liver cirrhosis - IS PATIENT ON ANTICOAGULANTS? [facility] W/O [id number] 05:27:00* Test Item Value Reference Range Interpretation [...] MPV) 10.6 fL 6.7-11.0 N ARTERIAL BLOOD [id number] 05:25:00* Test Item Value Reference Range Interpretation [...] 16.4 % vol 18.0-22.0 L CBC W/O [id number] 05:20:00* Test Item Value Reference Range Interpretation [...] VOLUME (test code = MPV) fL 6.7-11.0 [id number] 05:06:00* Test Item Value Reference Range Interpretation Comments GLUBED (test code = GLUBED) 73 mg/dL 74-106 L Performed by certified first coat operator at [facility] FOREARM RIGHT 2 [id number] 20:47:00 [facility] [address] [address] Patient Name: KALYANI TALAVERA MR #: [id number] : 1955 Age/Sex: 63/F Req #: [id number] Adm Physician: Ordered by: FLO TOLBERT MD Report #: [id number] Location: ER Room/Bed: Procedure: [id number] DX /FOREARM RIGHT 2 VIEW Exam Date: 07/30/18 Exam Time: 185 REPORT STATUS: Signed FORE ARM RIGHT 2 [...] 049 COPY TO: FLO TOLBERT MD Bedside [id number] 14:02:00 * Test Item Value Reference Range Interpretation Comments Bedside Glucose (test code = 26308-4) 68 70-120 L Meter ID: [id number] [facility] Glucose 2018-07-11 14:02:00* Test Item Value Reference Range Interpretation Comments Bedside Glucose (test code = 21233-0) 68 70-120 L Meter ID: [id number] [facility] Glucose 2018-07-11 14:02:00* Test Item Value Reference Range Interpretation Comments Bedside Glucose (test code = 68907-2) 68 70-120 L Meter ID: [id number] [facility] [id number] 12:44:00* Test Item Value Reference Range Interpretation Comments B-Type Natriuretic Peptide (test code = 09613-4) 43.1 0-100 [facility] Oxxesne4499-67-45 12:44:00* Test Item Value Reference Range Interpretation Comments B-Type Natriuretic Peptide (test code = 35308-6) 43.1 0-[address] [facility]/PARANAS [id number] 12:32:00 [facility] [address] [address] Patient Name: KALYANI TALAVERA MR #: [id number] : 1955 Age/Sex: 63/F Req #: [id number] Adm Physician: Ordered by: ELIESER DAWSON MD Report #: [id number] Location: ER Room/Bed: Procedure: [id number] CT/CT MAXIO FAC/PARANAS WO Exam Date: 07/11/18 [...] COPY TO: ELIESER DAWSON MD CT BRAIN [id number] 12:26:[address] [address] Patient Name: KALYANI TALAVERA MR #: [id number] : 1955 Age/Sex: 63/F Req #: [id number] Adm Physician: Ordered by: ELIESER DAWSON MD Report #: [id number] Location: ER Room/Bed: Procedure: [id number] CT/CT BRAIN WO Exam Date: 07/11/18 Exam [...] COPY TO: ELIESER DAWSON MD Lactic Acid [id number] 12:24:00* Test Item Value Reference Range Interpretation Comments Lactic Acid Level (test code = Lactic Acid Level) 7.1 4.5- 19.8 [facility] [id number] 12:24:00* Test Item Value Reference Range Interpretation Comments Lactic Acid Level (test code = Lactic Acid Level) 7.1 4.5- 19.[address] [facility] [id number] 12:24:00* Test Item Value Reference Range Interpretation Comments Lactic Acid Level (test code = Lactic Acid Level) 7.1 4.5- 19.8 [facility] Aazmx9819-26-40 12:24:00* Test Item Value Reference Range Interpretation Comments Lactic Acid Level (test code = Lactic Acid Level) 7.1 4.5- 19.8 [facility] [id number] 12:24:00* Test Item Value Reference Range Interpretation Comments Lactic Acid Level (test code = Lactic Acid Level) 7.1 4.5- 19.[address] [facility] [id number] 12:24:00* Test Item Value Reference Range Interpretation Comments Lactic Acid Level (test code = Lactic Acid Level) 7.1 4.5- 19.[address] [facility] [id number] 12:24:00* Test Item Value Reference Range Interpretation Comments Lactic Acid Level (test code = Lactic Acid Level) 7.1 4.5- 19.[address] [facility] Yolbp5109-21-17 12:24:00* Test Item Value Reference Range Interpretation Comments Lactic Acid Level (test code = Lactic Acid Level) 7.1 4.5- 19.[address] [facility] [facility] [facility] HospitalLactic Acid Sungt3827-22-73 12:24:00* Test Item Value Reference Range Interpretation Comments Lactic Acid Level (test code = Lactic Acid Level) 7.1 4.5- 19.8 [facility] Ubgji3077-08-21 12:24:00* Test Item Value Reference Range Interpretation Comments Lactic Acid Level (test code = Lactic Acid Level) 7.1 4.5- 19.[address] [facility] [facility] HospitalCreatine Kinase [id number] 12:17:00* Test Item Value Reference Range Interpretation Comments Creatine Kinase MB (test code = 32384-4) 2.60 0-5.[address] [facility] HospitalTrJacob Ville [id number] 12:17:00* Test Item Value Reference Range Interpretation Comments Troponin I (test code = JRF9424) < 0.001 0-0.[address] [facility] HospitalCreatine Kinase [id number] 12:17:00* Test Item Value Reference Range Interpretation Comments Creatine Kinase MB (test code = 59250-2) 2.60 0-5.0 [place] [id number] 12:17:00* Test Item Value Reference Range Interpretation Comments Troponin I (test code = CBC1395) < 0.001 0-0.[address] [facility] HospitalActivated Partial Thromboplast Time 2018-07-11 12:09:00* Test Item Value Reference Range Interpretation Comments Activated Partial Thromboplast Time (test code = 25598-8) 20.8 23.8-35.5 L [facility] Centerodium Fvdcg7403-46-19 12:09:00* Test Item Value Reference Range Interpretation Comments Sodium Level (test code = 2951-2) 141 136-[address] [facility] HospitalPotassium Qjdbs6884-19-97 12:09:00* Test Item Value Reference Range Interpretation Comments Potassium Level (test code = 2823-3) 4.5 3.5-5.[address] [facility] HospitalChloride Bnvzq6292-83-67 12:09:00* Test Item Value Reference Range Interpretation Comments Chloride Level (test code = 2075-0) 110 98-[address] [facility] HospitalCarbon Dioxide Anzpb7751-15-19 12:09:00* Test Item Value Reference Range Interpretation Comments Carbon Dioxide Level (test code = 2028-9) 22 22-[address] [facility] HospitalAnion Dyu8196-14-49 12:09:00* Test Item Value Reference Range Interpretation Comments Anion Gap (test code = 49381-6) 13.5 8-[address] [facility] HospitalBlood Urea Hbmupytz5818-44-31 12:09:00* Test Item Value Reference Range Interpretation Comments Blood Urea Nitrogen (test code = 3094-0) 28 7-[address] [facility] HospitalCreatinine2018-12-19 12:09:00* Test Item Value Reference Range Interpretation Comments Creatinine (test code = 2160-0) 0.92 0.57-1.[address] [facility] HospitalBUN/Creatinine Nbjun1905-40-67 12:09:00* Test Item Value Reference Range Interpretation Comments BUN/Creatinine Ratio (test code = 3097-3) 30 6-[address] [facility] HospitalEstimat Glomerular Filtration Rate 2018-07-11 12:09:00* Test Item Value Reference Range Interpretation Comments Estimat Glomerular Filtration Rate (test code = 417751166) > 60 >60 Ranges were taken from the National Kidney Disease Education Program and the [facility] Kidney Foundation literature.Reference ranges:60 or greater: Ihhhkf50-38 ( for 3 consecutive months): Chronic kidney disease 15 or less: Kidney failureCHI St. [facility] HospitalGlucose Cgxyy5856-36-41 12:09:00* Test Item Value Reference Range Interpretation Comments Glucose Level (test code = POL8848) 62 74-[address] [facility] HospitalCalcium Lwdnl3401-49-99 12:09:00* Test Item Value Reference Range Interpretation Comments Calcium Level (test code = 81331-9) 9.2 8.4-10.[address] [facility] HospitalTotal Yjqjofoxk8533-60-68 12:09:00* Test Item Value Reference Range Interpretation Comments Total Bilirubin (test code = 1975-2) 0.3 0.2-1.[address] [facility] HospitalAspartate Amino Transf (AST/SGOT) 2018-07-11 12:09:00* Test Item Value Reference Range Interpretation Comments Aspartate Amino Transf (AST/SGOT) (test code = Aspartate Amino Transf (AST/SGOT)) 17 5-[address] [facility] HospitalAlanine Aminotransferase (ALT/SGPT) 2018-07-11 12:09:00* Test Item Value Reference Range Interpretation Comments Alanine Aminotransferase (ALT/SGPT) (test code = 1742-6) 18 0-[address] [facility] HospitalTotal Lpwtfxe8821-98-70 12:09:00* Test Item Value Reference Range Interpretation Comments Total Protein (test code = 2885-2) 6.9 6.5-8.[address] [facility] HospitalAlbumin2018-12-19 12:09:00* Test Item Value Reference Range Interpretation Comments Albumin (test code = 1751-7) 3.6 3.5-5.[address] [facility] HospitalGlobulin2018-12-19 12:09:00* Test Item Value Reference Range Interpretation Comments Globulin (test code = 04737-8) 3.3 2.3-3.[address] [facility] HospitalAlbumin/Globulin Dlvfo0442-75-06 12:09:00 * Test Item Value Reference Range Interpretation Comments Albumin/Globulin Ratio (test code = 1759-0) 1.1 0.8-2.[address] [facility] HospitalAlkaline Smqbinsyfwm8131-76-38 12:09:00* Test Item Value Reference Range Interpretation Comments Alkaline Phosphatase (test code = 6768-6) 55 40-[address] [facility] HospitalCreatine Jdjdvt9389-95-53 12:09:00* Test Item Value Reference Range Interpretation Comments Creatine Kinase (test code = 2157-6) 71 29-[address] [facility] HospitalActivated Partial Thromboplast Time 2018-07-11 12:09:00* Test Item Value Reference Range Interpretation Comments Activated Partial Thromboplast Time (test code = 37839-5) 20.8 23.8-35.5 L [facility] Centerodium Zsnqc6024-56-48 12:09:00* Test Item Value Reference Range Interpretation Comments Sodium Level (test code = 2951-2) 141 136-[address] [facility] HospitalPotassium Xjlny4813-89-25 12:09:00* Test Item Value Reference Range Interpretation Comments Potassium Level (test code = 2823-3) 4.5 3.5-5.[address] [facility] HospitalChloride Hsupw2297-01-40 12:09:00* Test Item Value Reference Range Interpretation Comments Chloride Level (test code = 2075-0) 110 98-[address] [facility] HospitalCarbon Dioxide Orrbi1889-93-16 12:09:00* Test Item Value Reference Range Interpretation Comments Carbon Dioxide Level (test code = 2028-9) 22 22-[address] [facility] HospitalAnion Qbn9980-24-22 12:09:00* Test Item Value Reference Range Interpretation Comments Anion Gap (test code = 32643-0) 13.5 8-[address] [facility] HospitalBlood Urea Fwmywfly8529-76-22 12:09:00* Test Item Value Reference Range Interpretation Comments Blood Urea Nitrogen (test code = 3094-0) 28 7-[address] [facility] HospitalCreatinine2018-12-19 12:09:00* Test Item Value Reference Range Interpretation Comments Creatinine (test code = 2160-0) 0.92 0.57-1.[address] [facility] HospitalBUN/Creatinine Znuxv2217-84-42 12:09:00* Test Item Value Reference Range Interpretation Comments BUN/Creatinine Ratio (test code = 3097-3) 30 6-[address] [facility] HospitalEstimat Glomerular Filtration Rate 2018-07-11 12:09:00* Test Item Value Reference Range Interpretation Comments Estimat Glomerular Filtration Rate (test code = 214593874) > 60 >60 Ranges were taken from the National Kidney Disease Education Program and the [facility] Kidney Foundation literature.Reference ranges:60 or greater: Lrjusf37-06 ( for 3 consecutive months): Chronic kidney disease 15 or less: Kidney failureCHI St. [facility] HospitalGlucose Kzfds5913-34-23 12:09:00* Test Item Value Reference Range Interpretation Comments Glucose Level (test code = IVX6700) 62 74-[address] [facility] HospitalCalcium Ljazo4421-78-86 12:09:00* Test Item Value Reference Range Interpretation Comments Calcium Level (test code = 89128-3) 9.2 8.4-10.[address] [facility] HospitalTotal Jzbqoggrr5629-34-18 12:09:00* Test Item Value Reference Range Interpretation Comments Total Bilirubin (test code = 1975-2) 0.3 0.2-1.[address] [facility] HospitalAspartate Amino Transf (AST/SGOT) 2018-07-11 12:09:00* Test Item Value Reference Range Interpretation Comments Aspartate Amino Transf (AST/SGOT) (test code = Aspartate Amino Transf (AST/SGOT)) 17 5-[address] [facility] HospitalAlanine Aminotransferase (ALT/SGPT) 2018-07-11 12:09:00* Test Item Value Reference Range Interpretation Comments Alanine Aminotransferase (ALT/SGPT) (test code = 1742-6) 18 0-[address] [facility] HospitalTotal Qmazorl0474-39-08 12:09:00* Test Item Value Reference Range Interpretation Comments Total Protein (test code = 2885-2) 6.9 6.5-8.[address] [facility] HospitalAlbumin2018-12-19 12:09:00* Test Item Value Reference Range Interpretation Comments Albumin (test code = 1751-7) 3.6 3.5-5.[address] [facility] HospitalGlobulin2018-12-19 12:09:00* Test Item Value Reference Range Interpretation Comments Globulin (test code = 50621-2) 3.3 2.3-3.[address] [facility] HospitalAlbumin/Globulin Gdgss6424-69-52 12:09:00 * Test Item Value Reference Range Interpretation Comments Albumin/Globulin Ratio (test code = 1759-0) 1.1 0.8-2.[address] [facility] HospitalAlkaline Wxzxyyaytdz2272-77-25 12:09:00* Test Item Value Reference Range Interpretation Comments Alkaline Phosphatase (test code = 6768-6) 55 40-[address] [facility] HospitalCreatine Unpvyh4696-79-94 12:09:00* Test Item Value Reference Range Interpretation Comments Creatine Kinase (test code = 2157-6) 71 29-[address] [facility] HospitalActivated Partial Thromboplast Time 2018-07-11 12:09:00* Test Item Value Reference Range Interpretation Comments Activated Partial Thromboplast Time (test code = 31286-8) 20.8 23.8-35.[address] [facility] HospitalProthrombin Ovih5988-50-21 11:59:00* Test Item Value Reference Range Interpretation Comments Prothrombin Time (test code = 5902-2) 13.5 11.9-14.[address] [facility] HospitalProthromb Time International Ratio 2018-07-11 11:59:00* Test Item Value Reference Range Interpretation Comments Prothromb Time International Ratio (test code = 6301-6) 0.95 Oral Anticoagulant Therapy INR Values:1. Low Intensity Therapy 1.5 - 2.02 . Moderate Intensity Therapy 2.0 - 3.03. High Intensity Therapy(1) 2.5 - 3. 54. High Intensity Therapy(2) 3.0 - 4.05. Panic Value INR > 5.[address] [facility] [facility] HospitalProthrombin Olyt6733-60-21 11:59:00* Test Item Value Reference Range Interpretation Comments Prothrombin Time (test code = 5902-2) 13.5 11.9-14.[address] [facility] HospitalProthromb Time International Ratio 2018-07-11 11:59:00* Test Item Value Reference Range Interpretation Comments Prothromb Time International Ratio (test code = 6301-6) 0.95 Oral Anticoagulant Therapy INR Values:1. Low Intensity Therapy 1.5 - 2.02 . Moderate Intensity Therapy 2.0 - 3.03. High Intensity Therapy(1) 2.5 - 3. 54. High Intensity Therapy(2) 3.0 - 4.05. Panic Value INR > 5.[address] [facility] [facility] HospitalProthrombin Yvgu7134-64-88 11:59:00* Test Item Value Reference Range Interpretation Comments Prothrombin Time (test code = 5902-2) 13.5 11.9-14.[address] [facility] HospitalProthromb Time International Ratio 2018-07-11 11:59:00* Test Item Value Reference Range Interpretation Comments Prothromb Time International Ratio (test code = 6301-6) 0.95 Oral Anticoagulant Therapy INR Values:1. Low Intensity Therapy 1.5 - 2.02 . Moderate Intensity Therapy 2.0 - 3.03. High Intensity Therapy(1) 2.5 - 3. 54. High Intensity Therapy(2) 3.0 - 4.05. Panic Value INR > 5.[address] [facility] [facility] HospitalWhite Blood Unmdp1252-51-13 11:54:00* Test Item Value Reference Range Interpretation Comments White Blood Count (test code = 6690-2) 6.79 4.8-10.[address] [facility] HospitalRed Blood Njgjd4331-39-27 11:54:00* Test Item Value Reference Range Interpretation Comments Red Blood Count (test code = 789-8) 4.38 3.6-5.[address] [facility] HospitalHemoglobin2018-12-19 11:54:00* Test Item Value Reference Range Interpretation Comments Hemoglobin (test code = 58598-4) 11.4 12.0-16.[address] [facility] HospitalHematocrit2018-12-19 11:54:00* Test Item Value Reference Range Interpretation Comments Hematocrit (test code = 4544-3) 38.1 34.2-44.[address] [facility] HospitalMean Corpuscular Krkipc2208-45-91 11:54:00* Test Item Value Reference Range Interpretation Comments Mean Corpuscular Volume (test code = 787-2) 87.0 81-[address] [facility] HospitalMean Corpuscular Ebxhsuagwu4199-77-68 11:54:00* Test Item Value Reference Range Interpretation Comments Mean Corpuscular Hemoglobin (test code = 785-6) 26.0 28-[address] [facility] HospitalMean Corpuscular Hemoglobin Concent 2018-07-11 11:54:00* Test Item Value Reference Range Interpretation Comments Mean Corpuscular Hemoglobin Concent (test code = 786-4) 29.9 31-[address] [facility] HospitalRed Cell Distribution Bjsgp4305-93-21 11:54:00* Test Item Value Reference Range Interpretation Comments Red Cell Distribution Width (test code = 32337-5) 16.0 11.7 -14.[address] [facility] HospitalPlatelet Fwpwe6571-29-60 11:54:00* Test Item Value Reference Range Interpretation Comments Platelet Count (test code = 777-3) 204 140-[address] [facility] HospitalNeutrophils (%) (Auto)2018-07-11 11:54:00 * Test Item Value Reference Range Interpretation Comments Neutrophils (%) (Auto) (test code = 06041-3) 76.3 38.7-80.[address] [facility] HospitalLymphocytes (%) (Auto)2018-07-11 11:54:00 * Test Item Value Reference Range Interpretation Comments Lymphocytes (%) (Auto) (test code = 736-9) 10.3 18.0-39.[address] [facility] HospitalMonocytes (%) (Auto)2018-07-11 11:54:00* Test Item Value Reference Range Interpretation Comments Monocytes (%) (Auto) (test code = 5905-5) 5.9 4.4-11.[address] [facility] HospitalEosinophils (%) (Auto)2018-07-11 11:54:00 * Test Item Value Reference Range Interpretation Comments Eosinophils (%) (Auto) (test code = 713-8) 2.7 0.0-6.[address] [facility] HospitalBasophils (%) (Auto)2018-07-11 11:54:00* Test Item Value Reference Range Interpretation Comments Basophils (%) (Auto) (test code = 706-2) 1.0 0.0-1.[address] [facility] HospitalIM GRANULOCYTES %2018-07-11 11:54:00* Test Item Value Reference Range Interpretation Comments IM GRANULOCYTES % (test code = IM GRANULOCYTES %) 3.8 0.0- 1.[address] [facility] HospitalNeutrophils # (Auto)2018-07-11 11:54:00* Test Item Value Reference Range Interpretation Comments Neutrophils # (Auto) (test code = 751-8) 5.2 2.1-6.[address] [facility] HospitalLymphocytes # (Auto)2018-07-11 11:54:00* Test Item Value Reference Range Interpretation Comments Lymphocytes # (Auto) (test code = 43166-0) 0.7 1.0-3.[address] HospitalMonocytes # (Auto)2018-07-11 11:54:00* Test Item Value Reference Range Interpretation Comments Monocytes # (Auto) (test code = 742-7) 0.4 0.2-0.[address] [facility] HospitalEosinophils # (Auto)2018-07-11 11:54:00* Test Item Value Reference Range Interpretation Comments Eosinophils # (Auto) (test code = 711-2) 0.2 0.0-0.[address] [facility] HospitalBasophils # (Auto)2018-07-11 11:54:00* Test Item Value Reference Range Interpretation Comments Basophils # (Auto) (test code = 704-7) 0.1 0.0-0.[address] [facility] HospitalAbsolute Immature Granulocyte (auto 2018-07-11 11:54:00* Test Item Value Reference Range Interpretation Comments Absolute Immature Granulocyte (auto (joseph t code = Absolute Immature Granulocyte (auto) 0.26 0-0.[address] [facility] HospitalWhite Blood Ubnru6974-99-93 11:54:00* Test Item Value Reference Range Interpretation Comments White Blood Count (test code = 6690-2) 6.79 4.8-10.[address] [facility] HospitalRed Blood Wkdcv6020-34-55 11:54:00* Test Item Value Reference Range Interpretation Comments Red Blood Count (test code = 789-8) 4.38 3.6-5.[address] [facility] HospitalHemoglobin2018-12-19 11:54:00* Test Item Value Reference Range Interpretation Comments Hemoglobin (test code = 85461-9) 11.4 12.0-16.[address] [facility] HospitalHematocrit2018-12-19 11:54:00* Test Item Value Reference Range Interpretation Comments Hematocrit (test code = 4544-3) 38.1 34.2-44.[address] [facility] HospitalMean Corpuscular Cgpfop2242-58-27 11:54:00* Test Item Value Reference Range Interpretation Comments Mean Corpuscular Volume (test code = 787-2) 87.0 81-[address] [facility] HospitalMean Corpuscular Ewxkxmolos6307-95-30 11:54:00* Test Item Value Reference Range Interpretation Comments Mean Corpuscular Hemoglobin (test code = 785-6) 26.0 28-[address] [facility] HospitalMean Corpuscular Hemoglobin Concent 2018-07-11 11:54:00* Test Item Value Reference Range Interpretation Comments Mean Corpuscular Hemoglobin Concent (test code = 786-4) 29.9 31-[address] [facility] HospitalRed Cell Distribution Rmily1445-67-55 11:54:00* Test Item Value Reference Range Interpretation Comments Red Cell Distribution Width (test code = 62016-5) 16.0 11.7 -14.[address] [facility] HospitalPlatelet Nfyjt0216-20-46 11:54:00* Test Item Value Reference Range Interpretation Comments Platelet Count (test code = 777-3) 204 140-[address] [facility] HospitalNeutrophils (%) (Auto)2018-07-11 11:54:00 * Test Item Value Reference Range Interpretation Comments Neutrophils (%) (Auto) (test code = 63469-5) 76.3 38.7-80.[address] [facility] HospitalLymphocytes (%) (Auto)2018-07-11 11:54:00 * Test Item Value Reference Range Interpretation Comments Lymphocytes (%) (Auto) (test code = 736-9) 10.3 18.0-39.[address] HospitalMonocytes (%) (Auto)2018-07-11 11:54:00* Test Item Value Reference Range Interpretation Comments Monocytes (%) (Auto) (test code = 5905-5) 5.9 4.4-11.[address] [facility] [facility] HospitalEosinophils (%) (Auto)2018-07-11 11:54:00 * Test Item Value Reference Range Interpretation Comments Eosinophils (%) (Auto) (test code = 713-8) 2.7 0.0-6.[address] [facility] HospitalBasophils (%) (Auto)2018-07-11 11:54:00* Test Item Value Reference Range Interpretation Comments Basophils (%) (Auto) (test code = 706-2) 1.0 0.0-1.[address] [facility] HospitalIM GRANULOCYTES %2018-07-11 11:54:00* Test Item Value Reference Range Interpretation Comments IM GRANULOCYTES % (test code = IM GRANULOCYTES %) 3.8 0.0- 1.[address] [facility] HospitalNeutrophils # (Auto)2018-07-11 11:54:00* Test Item Value Reference Range Interpretation Comments Neutrophils # (Auto) (test code = 751-8) 5.2 2.1-6.[address] [facility] HospitalLymphocytes # (Auto)2018-07-11 11:54:00* Test Item Value Reference Range Interpretation Comments Lymphocytes # (Auto) (test code = 11945-2) 0.7 1.0-3.[address] [facility] HospitalMonocytes # (Auto)2018-07-11 11:54:00* Test Item Value Reference Range Interpretation Comments Monocytes # (Auto) (test code = 742-7) 0.4 0.2-0.[address] [facility] HospitalEosinophils # (Auto)2018-07-11 11:54:00* Test Item Value Reference Range Interpretation Comments Eosinophils # (Auto) (test code = 711-2) 0.2 0.0-0.[address] [facility] HospitalBasophils # (Auto)2018-07-11 11:54:00* Test Item Value Reference Range Interpretation Comments Basophils # (Auto) (test code = 704-7) 0.1 0.0-0.[address] HospitalAbsolute Immature Granulocyte (auto 2018-07-11 11:54:00* Test Item Value Reference Range Interpretation Comments Absolute Immature Granulocyte (auto (joseph t code = Absolute Immature Granulocyte (auto) 0.26 0-0.[address] [facility] HospitalCT CERVICAL SPINE BJ0774-98-65 11:47:00 [place] [address] Patient Name: KALYANI TALAVERA MR #: [id number] : 1955 Age/Sex: 63/F Req #: [id number] Adm Physician: Ordered by: ELIESER DAWSON MD Report #: [id number] Location: ER Room/Bed: Procedure: [id number] CT/CT CERVICAL SPINE WO Exam Date: 07/11/18 [...] 1154 COPY TO: ELIESER DAWSON MD Bedside Wvypssi4173-84-55 11:57:00* Test Item Value Reference Range Interpretation Comments Bedside Glucose (test code = 14520-9) 329 70-120 H Meter ID: [id number] Hermann [facility] Centerodium Level 2018-07-03 09:09:00* Test Item Value Reference Range Interpretation Comments Sodium Level (test code = 2951-2) 132 136-[address] [facility] HospitalPotassium Kpygv6506-31-35 09:09:00* Test Item Value Reference Range Interpretation Comments Potassium Level (test code = 2823-3) 4.6 3.5-5.[address] [facility] HospitalChloride Wxzzy1500-55-76 09:09:00* Test Item Value Reference Range Interpretation Comments Chloride Level (test code = 2075-0) 95 98-[address] [facility] HospitalCarbon Dioxide Omzkr5679-53-49 09:09:00* Test Item Value Reference Range Interpretation Comments Carbon Dioxide Level (test code = 8-9) 24 22-[address] [facility] HospitalAnion Yij3694-93-64 09:09:00* Test Item Value Reference Range Interpretation Comments Anion Gap (test code = 08920-1) 17.6 8-[address] [facility] HospitalBlood Urea Vjdqtzum6726-95-54 09:09:00* Test Item Value Reference Range Interpretation Comments Blood Urea Nitrogen (test code = 3094-0) 52 7-[address] [facility] HospitalCreatinine2018-12-11 09:09:00* Test Item Value Reference Range Interpretation Comments Creatinine (test code = 2160-0) 1.72 0.57-1.[address] [facility] HospitalBUN/Creatinine Yvwwd2133-47-78 09:09:00* Test Item Value Reference Range Interpretation Comments BUN/Creatinine Ratio (test code = 3097-3) 30 6-[address] [facility] HospitalEstimat Glomerular Filtration Rate 2018-07-03 09:09:00* Test Item Value Reference Range Interpretation Comments Estimat Glomerular Filtration Rate (test code = 808912992) 30 >60 L Ranges were taken from the National Kidney Disease Education Program and the [facility] Kidney Foundation literature.Reference ranges:60 or greater: Rembpt73-94 ( for 3 consecutive months): Chronic kidney disease 15 or less: Kidney failureCHI St. [facility] HospitalGlucose Rgwdh9039-65-91 09:09:00* Test Item Value Reference Range Interpretation Comments Glucose Level (test code = VSK2831) 218 74-[address] [facility] HospitalCalcium Bgvgr9048-82-31 09:09:00* Test Item Value Reference Range Interpretation Comments Calcium Level (test code = 17065-1) 9.1 8.4-10.[address] [facility] HospitalTotal Qhhhdzfwv0333-44-30 09:09:00* Test Item Value Reference Range Interpretation Comments Total Bilirubin (test code = 1975-2) 0.4 0.2-1.[address] [facility] HospitalAspartate Amino Transf (AST/SGOT) 2018-07-03 09:09:00* Test Item Value Reference Range Interpretation Comments Aspartate Amino Transf (AST/SGOT) (test code = Aspartate Amino Transf (AST/SGOT)) 9 5-[address] [facility] HospitalAlanine Aminotransferase (ALT/SGPT) 2018-07-03 09:09:00* Test Item Value Reference Range Interpretation Comments Alanine Aminotransferase (ALT/SGPT) (test code = 1742-6) 12 0-[address] [facility] [facility] HospitalTotal Kgbnviu8871-50-97 09:09:00* Test Item Value Reference Range Interpretation Comments Total Protein (test code = 2885-2) 7.2 6.5-8.[address] [facility] HospitalAlbumin2018-12-11 09:09:00* Test Item Value Reference Range Interpretation Comments Albumin (test code = 1751-7) 3.4 3.5-5.[address] [facility] HospitalGlobulin2018-12-11 09:09:00* Test Item Value Reference Range Interpretation Comments Globulin (test code = 22881-2) 3.8 2.3-3.[address] [facility] HospitalAlbumin/Globulin Oyesd3951-94-81 09:09:00 * Test Item Value Reference Range Interpretation Comments Albumin/Globulin Ratio (test code = 1759-0) 0.9 0.8-2.[address] [facility] HospitalAlkaline Zpfahnktuzo6893-25-84 09:09:00* Test Item Value Reference Range Interpretation Comments Alkaline Phosphatase (test code = 6768-6) 59 40-[address] [facility] HospitalCHEST SINGLE (NOT PORTABLE)2018-07-01 13:32:00 [place] [address] Patient Name: KALYANI TALAVERA MR #: [id number] : 1955 Age/Sex: 63/F Req #: [id number] Adm Physician: LUCILLE OLIVO MD Ordered by: BENJAMIN MASTERS MD Report #: [id number] Location: [facility] Room/Bed: [place] [address] Procedure: [id number] DX/CHEST SINGLE (NOT PORTABLE) Exam Date: 07/01/18 [...] COPY TO: BENJAMIN MASTERS MD Hemoglobin A1c Ydyzcba2380-32-34 13:20:00* Test Item Value Reference Range Interpretation Comments Hemoglobin A1c Percent (test code = Hemoglobin A1c Percent) 8.4 4.0-7.[address] [facility] [facility] HospitalHemoglobin A1c Snfytok5678-46-15 13:20:00 * Test Item Value Reference Range Interpretation Comments Hemoglobin A1c Percent (test code = Hemoglobin A1c Percent) 8.4 4.0-7.[address] [facility] [facility] HospitalHemoglobin A1c Vjxnbeu0852-85-96 13:20:00 * Test Item Value Reference Range Interpretation Comments Hemoglobin A1c Percent (test code = Hemoglobin A1c Percent) 8.4 4.0-7.[address] [facility] HospitalHemoglobin A1c Lwghkcw8958-43-48 13:20:00 * Test Item Value Reference Range Interpretation Comments Hemoglobin A1c Percent (test code = Hemoglobin A1c Percent) 8.4 4.0-7.[address] [facility] HospitalVQ LUNG SCAN VENT RUUPTYNCK5761-45-81 16:24:00 [facility] [address] [place] [address] Patient Name: KALYANI TALAVERA MR #: [id number] : 1955 Age/Sex: 63/F Req #: [id number] Adm Physician: LUCILLE OLIVO MD Ordered by: JACINDA BUSTILLOS MD Report #: [id number] Location: [facility] Room/Bed: [place] [address] Procedure: [id number] N M/VQ LUNG SCAN VENT PERFUSION Exam [...] COPY TO: JACINDA VILLAGOMEZ MD Creatine Kinase VZ5721-59-49 08:14:00* Test Item Value Reference Range Interpretation Comments Creatine Kinase MB (test code = 78983-3) 1.50 0-5.[address] [facility] HospitalTroponin B2324-77-29 08:14:00* Test Item Value Reference Range Interpretation Comments Troponin I (test code = KUW3991) < 0.001 0-0.[address] [address] HospitalCreatine Npsopl2555-02-50 08:07:00* Test Item Value Reference Range Interpretation Comments Creatine Kinase (test code = 2157-6) 61 29-[address] [facility] HospitalB-Type Natriuretic Bkbakjf9617-54-45 07:10:00* Test Item Value Reference Range Interpretation Comments B-Type Natriuretic Peptide (test code = 68414-7) < 10.0 0-[address] [facility] HospitalWhite Blood Clzmd9676-38-38 05:51:00* Test Item Value Reference Range Interpretation Comments White Blood Count (test code = 6690-2) 6.29 4.8-10.[address] [facility] HospitalRed Blood Yvybd0351-42-24 05:51:00* Test Item Value Reference Range Interpretation Comments Red Blood Count (test code = 789-8) 4.36 3.6-5.[address] [facility] HospitalHemoglobin2018-12-06 05:51:00* Test Item Value Reference Range Interpretation Comments Hemoglobin (test code = 06764-2) 11.1 12.0-16.[address] [facility] HospitalHematocrit2018-12-06 05:51:00* Test Item Value Reference Range Interpretation Comments Hematocrit (test code = 4544-3) 37.1 34.2-44.[address] [facility] HospitalMean Corpuscular Jhnqru5330-01-87 05:51:00* Test Item Value Reference Range Interpretation Comments Mean Corpuscular Volume (test code = 787-2) 85.1 81-[address] [facility] [facility] HospitalMean Corpuscular Wsrkuhiouy0097-52-00 05:51:00* Test Item Value Reference Range Interpretation Comments Mean Corpuscular Hemoglobin (test code = 785-6) 25.5 28-[address] [facility] HospitalMean Corpuscular Hemoglobin Concent 2018-06-28 05:51:00* Test Item Value Reference Range Interpretation Comments Mean Corpuscular Hemoglobin Concent (test code = 786-4) 29.9 31-[address] [facility] HospitalRed Cell Distribution Qdduv9868-20-93 05:51:00* Test Item Value Reference Range Interpretation Comments Red Cell Distribution Width (test code = 89348-1) 15.7 11.7 -14.[address] [facility] HospitalPlatelet Kofxi7774-41-24 05:51:00* Test Item Value Reference Range Interpretation Comments Platelet Count (test code = 777-3) 162 140-[address] [facility] HospitalNeutrophils (%) (Auto)2018-06-28 05:51:00 * Test Item Value Reference Range Interpretation Comments Neutrophils (%) (Auto) (test code = 97965-1) 75.4 38.7-80.[address] HospitalLymphocytes (%) (Auto)2018-06-28 05:51:00 * Test Item Value Reference Range Interpretation Comments Lymphocytes (%) (Auto) (test code = 736-9) 13.0 18.0-39.[address] [facility] HospitalMonocytes (%) (Auto)2018-06-28 05:51:00* Test Item Value Reference Range Interpretation Comments Monocytes (%) (Auto) (test code = 5905-5) 7.3 4.4-11.[address] [facility] HospitalEosinophils (%) (Auto)2018-06-28 05:51:00 * Test Item Value Reference Range Interpretation Comments Eosinophils (%) (Auto) (test code = 713-8) 2.7 0.0-6.[address] [facility] HospitalBasophils (%) (Auto)2018-06-28 05:51:00* Test Item Value Reference Range Interpretation Comments Basophils (%) (Auto) (test code = 706-2) 1.0 0.0-1.[address] [facility] HospitalIM GRANULOCYTES %2018-06-28 05:51:00* Test Item Value Reference Range Interpretation Comments IM GRANULOCYTES % (test code = IM GRANULOCYTES %) 0.6 0.0- 1.[address] [facility] HospitalNeutrophils # (Auto)2018-06-28 05:51:00* Test Item Value Reference Range Interpretation Comments Neutrophils # (Auto) (test code = 751-8) 4.7 2.1-6.[address] HospitalLymphocytes # (Auto)2018-06-28 05:51:00* Test Item Value Reference Range Interpretation Comments Lymphocytes # (Auto) (test code = 37599-3) 0.8 1.0-3.[address] [facility] HospitalMonocytes # (Auto)2018-06-28 05:51:00* Test Item Value Reference Range Interpretation Comments Monocytes # (Auto) (test code = 742-7) 0.5 0.2-0.[address] [facility] HospitalEosinophils # (Auto)2018-06-28 05:51:00* Test Item Value Reference Range Interpretation Comments Eosinophils # (Auto) (test code = 711-2) 0.2 0.0-0.[address] [facility] HospitalBasophils # (Auto)2018-06-28 05:51:00* Test Item Value Reference Range Interpretation Comments Basophils # (Auto) (test code = 704-7) 0.1 0.0-0.[address] [facility] HospitalAbsolute Immature Granulocyte (auto 2018-06-28 05:51:00* Test Item Value Reference Range Interpretation Comments Absolute Immature Granulocyte (auto (joseph t code = Absolute Immature Granulocyte (auto) 0.[address] [facility] HospitalCHEST 2 ZXYWQ8819-84-56 04:37:00 [place] [address] Patient Name: KALYANI TALAVERA MR #: [id number] : 1955 Age/Sex: 63/F Req #: [id number] [facility] Physician: Ordered by: JACQUES JANE MD Report #: [id number] Location: ER Room/Bed: Procedure: [id number] 0011 DX/CHEST 2 VIEWS Exam Date: 06/27/18 Exam Time: 429 REPORT STATUS: Signed CHEST 2 VIEWS, Technique: [...] on 06/27/18439 COPY TO: JACQUES HOOD MD SDVRFZD8352-56-33 13:15:00 RUN DATE: 06/21/18 [place] [facility] PAGE 1 RUN TIME: 1316 Specimen Inqui ry RUN USER: INTERFACE PATIENT: KALYANI TALAVERA ACCT #: V [id number] LOC: [place] #: [id number] AGE/SX: 63/F ROOM: RE06/19/18REG DR: Kb Bradford MD : 57 BED: DIS: STATUS: [facility] TLOC: SPEC #: [id number] RECD: 06/20/18 STATUS: [facility] #: [id number] MARILEE: 06/19/18- DR: Kb Bradford MD ENTERED: 06/20/18 SP TYPE: STOMACH OTHR DR: Lucille Torres MDORDERED: GROSS COPIES TO: Lucille Nur MD [address] [facility] [address] [place], [place] [id number] Kb Bradford Si, MD [address] [address] PROCEDURES: GROSS ( 06/21/18-1249) TISSUES: ANTRAL BIOPSY - H-PYLORI CLINICAL HIST ORY COLLECTION DATE: 06/19/18 DYSPHAGIA, HEARTBURN POST-OP DIAGNOSIS: HIATAL HERNIA, GASTRITIS FINAL DIAGNOSIS Stomach, antrum, biopsy: REACTIVE GASTROPATHY CONTROLLED GIEMSA STAIN NEGATIVE FOR HELICOBAC TER ORGANISMS NEGATIVE FOR MALIGNANCY MARYAM/sm D 48838, [address] MACROSCOPIC The specimen is received in formalin, labeled with the lis ent's name, identified as "antrum bx", and consists of two gutierrez biopsy tissue m easuring 0.3 cm each, submitted for H E and Giemsa stains. GROSS PERFORM ED AT [facility] CONTINUED ON NEXT PAG E RUN DATE: 06/21/18 [facility] PAGE 2 RUN TIME: 1315 Specimen Inquiry RUN USER: INTERFACE SPEC #: [id number] PATIENT: KHANH TALAVERA #[id number] (Continued) MACROSCO PIC (Continued) [facility] [address] [place] [address] (p)[phone] MICROSCOPIC MICROSCOPIC PERFOR MED AT [facility] All of the stains, including any controls perfor med, stain appropriately. [facility] [address] [place] [address] (P)[phone] PERFORMING SITE Diagnosis performed at: [facility], YANETH [address] [place] [phone] Signed SIGNATURE ON FILE Stacey Fuller 06/21/18 1315 END OF REPORT B-Type Natriuretic Ispkahg7977-17-35 03:14:00* Test Item Value Reference Range Interpretation Comments B-Type Natriuretic Peptide (test code = 60332-3) 10.5 0-[address] [facility] HospitalCreatine Kinase RC9239-77-54 03:14:00* Test Item Value Reference Range Interpretation Comments Creatine Kinase MB (test code = 27115-9) 1.30 0-5.[address] [facility] HospitalTroponin R9954-33-03 03:14:00* Test Item Value Reference Range Interpretation Comments Troponin I (test code = YKY0251) -0.001 0-0.[address] [facility] HospitalBedside Ioofvsp6243-50-30 03:04:00* Test Item Value Reference Range Interpretation Comments Bedside Glucose (test code = 84129-6) 291 70-120 H Meter ID: [id number] Hermann [facility] Medical Centerodium Level 2018-04-03 02:45:00* Test Item Value Reference Range Interpretation Comments Sodium Level (test code = 2951-2) 140 136-[address] [facility] HospitalPotassium Euhfe0074-02-55 02:45:00* Test Item Value Reference Range Interpretation Comments Potassium Level (test code = 2823-3) 3.8 3.5-5.[address] [facility] HospitalChloride Bexre5419-99-55 02:45:00* Test Item Value Reference Range Interpretation Comments Chloride Level (test code = 2075-0) 100 98-[address] [facility] HospitalCarbon Dioxide Awixt6504-26-02 02:45:00* Test Item Value Reference Range Interpretation Comments Carbon Dioxide Level (test code = 2028-9) 29 22-[address] [facility] HospitalAnion Uei1368-50-33 02:45:00* Test Item Value Reference Range Interpretation Comments Anion Gap (test code = 09973-4) 14.8 8-[address] [facility] HospitalBlood Urea Yhlynewb3793-82-76 02:45:00* Test Item Value Reference Range Interpretation Comments Blood Urea Nitrogen (test code = 3094-0) 49 7-[address] [facility] HospitalCreatinine2018-09-11 02:45:00* Test Item Value Reference Range Interpretation Comments Creatinine (test code = 2160-0) 1.93 0.57-1.[address] [facility] HospitalBUN/Creatinine Tfcyq9290-05-46 02:45:00* Test Item Value Reference Range Interpretation Comments BUN/Creatinine Ratio (test code = 3097-3) 25 6-[address] [facility] HospitalEstimat Glomerular Filtration Rate 2018-04-03 02:45:00* Test Item Value Reference Range Interpretation Comments Estimat Glomerular Filtration Rate (test code = 05513-2) 26 >60 L Ranges were taken from the National Kidney Disease Education Program and the [facility] literature.Reference ranges:60 or greater: Jpujnj00-30 ( for 3 consecutive months): Chronic kidney disease 15 or less: Kidney failureCHI St[facility] HospitalGlucose Wthls9956-24-51 02:45:00* Test Item Value Reference Range Interpretation Comments Glucose Level (test code = CWF4453) 58 74-118 LL Results called to LU HARMON RN at 0244 on 04/03/18 by Francoise Proctor. RB OK. [facility] HospitalCalcium Tprpa7197-57-85 02:45:00* Test Item Value Reference Range Interpretation Comments Calcium Level (test code = 51138-4) 9.3 8.4-10.[address] [facility] HospitalTotal Eaexwxtnp8534-42-13 02:45:00* Test Item Value Reference Range Interpretation Comments Total Bilirubin (test code = 1975-2) 0.2 0.2-1.[address] HospitalAspartate Amino Transf (AST/SGOT) 2018-04-03 02:45:00* Test Item Value Reference Range Interpretation Comments Aspartate Amino Transf (AST/SGOT) (test code = Aspartate Amino Transf (AST/SGOT)) 18 5-[address] [facility] HospitalAlanine Aminotransferase (ALT/SGPT) 2018-04-03 02:45:00* Test Item Value Reference Range Interpretation Comments Alanine Aminotransferase (ALT/SGPT) (test code = 1742-6) 18 0-[address] [facility] HospitalTotal Iwkkeyd7451-42-00 02:45:00* Test Item Value Reference Range Interpretation Comments Total Protein (test code = 2885-2) 7.3 6.5-8.[address] [facility] HospitalAlbumin2018-09-11 02:45:00* Test Item Value Reference Range Interpretation Comments Albumin (test code = 1751-7) 3.5 3.5-5.[address] [facility] HospitalGlobulin2018-09-11 02:45:00* Test Item Value Reference Range Interpretation Comments Globulin (test code = 74566-7) 3.8 2.3-3.[address] [facility] HospitalAlbumin/Globulin Mmbgn5508-80-91 02:45:00 * Test Item Value Reference Range Interpretation Comments Albumin/Globulin Ratio (test code = 1759-0) 0.9 0.8-2.[address] [facility] HospitalAlkaline Nsuanyctocw9896-81-23 02:45:00* Test Item Value Reference Range Interpretation Comments Alkaline Phosphatase (test code = 6768-6) 56 40-[address] [facility] HospitalCreatine Ofxzhx1539-74-72 02:45:00* Test Item Value Reference Range Interpretation Comments Creatine Kinase (test code = 2157-6) 54 29-[address] [facility] HospitalUrine Domtk7777-97-25 02:37:00* Test Item Value Reference Range Interpretation Comments Urine Color (test code = 5778-6) COLORLESS YELLOW [facility] HospitalUrine Kbyurxm4920-61-16 02:37:00* Test Item Value Reference Range Interpretation Comments Urine Clarity (test code = 83518-5) CLEAR CLEAR [facility] HospitalUrine Specific Cedpiso4906-38-34 02:37:00 * Test Item Value Reference Range Interpretation Comments Urine Specific [place] (test code = 5811-5) 1.005 1.010-1.[address] [facility] HospitalUrine sL2112-51-91 02:37:00* Test Item Value Reference Range Interpretation Comments Urine pH (test code = 72590-3) 7 5-[address] [facility] [facility] HospitalUrine Leukocyte Jyqjusxo7347-66-00 02:37:00* Test Item Value Reference Range Interpretation Comments Urine Leukocyte Esterase (test code = 5799-2) NEGATIVE NEGATIVE [facility] HospitalUrine Jsadzlf2904-59-04 02:37:00* Test Item Value Reference Range Interpretation Comments Urine Nitrite (test code = 29306-3) NEGATIVE NEGATIVE [facility] HospitalUrine Bzcutnq0152-92-93 02:37:00* Test Item Value Reference Range Interpretation Comments Urine Protein (test code = 5804-0) NEGATIVE NEGATIVE [facility] HospitalUrine Glucose (UA)2018-04-03 02:37:00* Test Item Value Reference Range Interpretation Comments Urine Glucose (UA) (test code = 2349-9) NEGATIVE NEGATIVE [facility] HospitalUrine Oesafpu8084-64-86 02:37:00* Test Item Value Reference Range Interpretation Comments Urine Ketones (test code = 91246-5) NEGATIVE NEGATIVE [facility] HospitalUrine Vpabfcrhcwfh7682-24-66 02:37:00* Test Item Value Reference Range Interpretation Comments Urine Urobilinogen (test code = 40722-6) 0.2 0.2-[address] [facility] HospitalUrine Rerkummdn9956-07-09 02:37:00* Test Item Value Reference Range Interpretation Comments Urine Bilirubin (test code = 1978-6) NEGATIVE NEGATIVE [facility] HospitalUrine Htwqv5898-32-76 02:37:00* Test Item Value Reference Range Interpretation Comments Urine Blood (test code = 01661-6) TRACE NEGATIVE H [facility] HospitalUrine BFU5905-65-82 02:37:00* Test Item Value Reference Range Interpretation Comments Urine WBC (test code = 5821-4) 0-5 0-[address] [facility] HospitalUrine DXK1431-82-13 02:37:00* Test Item Value Reference Range Interpretation Comments Urine RBC (test code = 71029-0) 0-5 0-[address] [facility] HospitalUrine Tasudlxj5682-09-21 02:37:00* Test Item Value Reference Range Interpretation Comments Urine Bacteria (test code = 87277-8) RARE NONE [facility] Epithelial Ymsww3645-26-20 02:37:00 * Test Item Value Reference Range Interpretation Comments Urine Epithelial Cells (test code = 98463-7) FEW NONE [facility] HospitalUrine Opnnn4508-85-60 02:37:00* Test Item Value Reference Range Interpretation Comments Urine Color (test code = 5778-6) COLORLESS YELLOW [facility] HospitalUrine Duyefow6138-72-74 02:37:00* Test Item Value Reference Range Interpretation Comments Urine Clarity (test code = 54968-8) CLEAR CLEAR [facility] HospitalUrine Specific Chieffw8034-73-10 02:37:00 * Test Item Value Reference Range Interpretation Comments Urine Specific [place] (test code = 5811-5) 1.005 1.010-1.[address] [facility] [facility] HospitalUrine jQ8149-83-36 02:37:00* Test Item Value Reference Range Interpretation Comments Urine pH (test code = 24866-2) 7 5-[address] [facility] [facility] HospitalUrine Leukocyte Dcesbace1944-34-71 02:37:00* Test Item Value Reference Range Interpretation Comments Urine Leukocyte Esterase (test code = 5799-2) NEGATIVE NEGATIVE [facility] HospitalUrine Wcawyac9704-81-78 02:37:00* Test Item Value Reference Range Interpretation Comments Urine Nitrite (test code = 98358-5) NEGATIVE NEGATIVE [facility] HospitalUrine Kbipliu3079-41-66 02:37:00* Test Item Value Reference Range Interpretation Comments Urine Protein (test code = 5804-0) NEGATIVE NEGATIVE [facility] HospitalUrine Glucose (UA)2018-04-03 02:37:00* Test Item Value Reference Range Interpretation Comments Urine Glucose (UA) (test code = 2349-9) NEGATIVE NEGATIVE [facility] HospitalUrine Stagysv3572-39-15 02:37:00* Test Item Value Reference Range Interpretation Comments Urine Ketones (test code = 16096-2) NEGATIVE NEGATIVE [facility] Niohnmafgsox0195-69-23 02:37:00* Test Item Value Reference Range Interpretation Comments Urine Urobilinogen (test code = 98720-4) 0.2 0.2-1 [facility] Pcsyhlexj4969-92-75 02:37:00* Test Item Value Reference Range Interpretation Comments Urine Bilirubin (test code = 1978-6) NEGATIVE NEGATIVE [facility] Hbixx6963-61-89 02:37:00* Test Item Value Reference Range Interpretation Comments Urine Blood (test code = 52631-7) TRACE NEGATIVE H [facility] HospitalUrine UWD3561-30-53 02:37:00* Test Item Value Reference Range Interpretation Comments Urine WBC (test code = 5821-4) 0-5 0-[address] [facility] [facility] HospitalUrine RSD3478-52-87 02:37:00* Test Item Value Reference Range Interpretation Comments Urine RBC (test code = 25716-7) 0-5 0-[address] [facility] [facility] HospitalUrine Wqudgjth7308-94-88 02:37:00* Test Item Value Reference Range Interpretation Comments Urine Bacteria (test code = 81934-0) RARE NONE [facility] HospitalUrine Epithelial Ydwgj0261-64-74 02:37:00 * Test Item Value Reference Range Interpretation Comments Urine Epithelial Cells (test code = 44126-7) FEW NONE [facility] HospitalUrine Mvykf4205-41-64 02:37:00* Test Item Value Reference Range Interpretation Comments Urine Color (test code = 5778-6) COLORLESS YELLOW [facility] HospitalUrine Ysnnltt8814-41-33 02:37:00* Test Item Value Reference Range Interpretation Comments Urine Clarity (test code = 00636-3) CLEAR CLEAR [facility] Specific Vecvwtl1877-97-07 02:37:00 * Test Item Value Reference Range Interpretation Comments Urine Specific [place] (test code = 5811-5) 1.005 1.010-1.[address] HospitalUrine cV0201-79-26 02:37:00* Test Item Value Reference Range Interpretation Comments Urine pH (test code = 27346-5) 7 5-7 [facility] Leukocyte Kaqgxjrf5287-75-14 02:37:00* Test Item Value Reference Range Interpretation Comments Urine Leukocyte Esterase (test code = 5799-2) NEGATIVE NEGATIVE [facility] Dyitcat8425-40-41 02:37:00* Test Item Value Reference Range Interpretation Comments Urine Nitrite (test code = 37526-6) NEGATIVE NEGATIVE [facility] Dvudiub2483-38-31 02:37:00* Test Item Value Reference Range Interpretation Comments Urine Protein (test code = 5804-0) NEGATIVE NEGATIVE [facility] Glucose (UA)2018-04-03 02:37:00* Test Item Value Reference Range Interpretation Comments Urine Glucose (UA) (test code = 2349-9) NEGATIVE NEGATIVE [facility] Uszuvkq9977-56-49 02:37:00* Test Item Value Reference Range Interpretation Comments Urine Ketones (test code = 11348-7) NEGATIVE NEGATIVE [facility] Kjerdunferag5995-11-12 02:37:00* Test Item Value Reference Range Interpretation Comments Urine Urobilinogen (test code = 62373-9) 0.2 0.2-1 [facility] Scfvfmcvv6532-18-15 02:37:00* Test Item Value Reference Range Interpretation Comments Urine Bilirubin (test code = 1978-6) NEGATIVE NEGATIVE [facility] Ukfvj7874-41-31 02:37:00* Test Item Value Reference Range Interpretation Comments Urine Blood (test code = 37372-3) TRACE NEGATIVE H [facility] HospitalU[facility] WRS7692-06-86 02:37:00* Test Item Value Reference Range Interpretation Comments Urine WBC (test code = 5821-4) 0-5 0-[address] [facility] HospitalU[facility] FOE9879-05-57 02:37:00* Test Item Value Reference Range Interpretation Comments Urine RBC (test code = 47706-5) 0-5 0-[address] [facility] [facility] HospitalU[facility] Uvjfybnj3996-17-85 02:37:00* Test Item Value Reference Range Interpretation Comments Urine Bacteria (test code = 08018-5) RARE NONE [facility] HospitalU[facility] Epithelial Wgmoo8778-13-46 02:37:00 * Test Item Value Reference Range Interpretation Comments Urine Epithelial Cells (test code = 40569-9) FEW NONE [facility] HospitalU[facility] Jxnuu3188-51-36 02:37:00* Test Item Value Reference Range Interpretation Comments Urine Color (test code = 5778-6) COLORLESS YELLOW [facility] HospitalU[facility] Hjbqnsl4448-22-10 02:37:00* Test Item Value Reference Range Interpretation Comments Urine Clarity (test code = 27276-7) CLEAR [facility]AR [facility] HospitalU[facility] Specific Oqqdnoq9103-30-39 02:37:00 * Test Item Value Reference Range Interpretation Comments Urine Specific [place] (test code = 5811-5) 1.005 1.010-1.[address] [facility] HospitalUrine tT4515-30-90 02:37:00* Test Item Value Reference Range Interpretation Comments Urine pH (test code = 35844-5) 7 5-[address] [facility] [facility] HospitalU[facility] Leukocyte Sizzkeuw7869-90-32 02:37:00* Test Item Value Reference Range Interpretation Comments Urine Leukocyte Esterase (test code = 5799-2) NEGATIVE NEGATIVE [facility] HospitalUrine Lsssslp1955-98-77 02:37:00* Test Item Value Reference Range Interpretation Comments Urine Nitrite (test code = 58835-5) NEGATIVE NEGATIVE [facility] HospitalUrine Yuvtuzz0530-85-70 02:37:00* Test Item Value Reference Range Interpretation Comments Urine Protein (test code = 5804-0) NEGATIVE NEGATIVE [facility] HospitalUrine Glucose (UA)2018-04-03 02:37:00* Test Item Value Reference Range Interpretation Comments Urine Glucose (UA) (test code = 2349-9) NEGATIVE NEGATIVE [facility] HospitalUrine Ynyfpkn4230-13-58 02:37:00* Test Item Value Reference Range Interpretation Comments Urine Ketones (test code = 79702-4) NEGATIVE NEGATIVE [facility] Bwzchrkuipmv0272-83-68 02:37:00* Test Item Value Reference Range Interpretation Comments Urine Urobilinogen (test code = 19143-9) 0.2 0.2-[address] [facility] HospitalUrine Uvtgbiwfh0366-34-47 02:37:00* Test Item Value Reference Range Interpretation Comments Urine Bilirubin (test code = 1978-6) NEGATIVE NEGATIVE [facility] HospitalU[facility] Vabpw9165-52-17 02:37:00* Test Item Value Reference Range Interpretation Comments Urine Blood (test code = 69624-2) TRACE NEGATIVE H [facility] HospitalUrine DVE1377-41-70 02:37:00* Test Item Value Reference Range Interpretation Comments Urine WBC (test code = 5821-4) 0-5 0-[address] [facility] [facility] HospitalU[facility] BIY0682-30-38 02:37:00* Test Item Value Reference Range Interpretation Comments Urine RBC (test code = 31746-1) 0-5 0-[address] [facility] [facility] HospitalU[facility] Yodqmufx7206-46-78 02:37:00* Test Item Value Reference Range Interpretation Comments Urine Bacteria (test code = 92849-6) RARE NONE [facility] HospitalUrine Epithelial Upxcv3679-83-34 02:37:00 * Test Item Value Reference Range Interpretation Comments Urine Epithelial Cells (test code = 86272-5) FEW NONE [facility] HospitalWhite Blood Umfrw6581-81-78 02:30:00* Test Item Value Reference Range Interpretation Comments White Blood Count (test code = 6690-2) 6.05 4.8-10.[address] [facility] HospitalRed Blood Dkbxb9717-98-74 02:30:00* Test Item Value Reference Range Interpretation Comments Red Blood Count (test code = 789-8) 4.43 3.6-5.[address] [facility] HospitalHemoglobin2018-09-11 02:30:00* Test Item Value Reference Range Interpretation Comments Hemoglobin (test code = 84412-9) 11.5 12.0-16.[address] [facility] HospitalHematocrit2018-09-11 02:30:00* Test Item Value Reference Range Interpretation Comments Hematocrit (test code = 4544-3) 38.3 34.2-44.[address] [facility] HospitalMean Corpuscular Kfzzze0723-47-94 02:30:00* Test Item Value Reference Range Interpretation Comments Mean Corpuscular Volume (test code = 787-2) 86.5 81-[address] [facility] HospitalMean Corpuscular Enibrsqiih8671-86-06 02:30:00* Test Item Value Reference Range Interpretation Comments Mean Corpuscular Hemoglobin (test code = 785-6) 26.0 28-[address] [facility] HospitalMean Corpuscular Hemoglobin Concent 2018-04-03 02:30:00* Test Item Value Reference Range Interpretation Comments Mean Corpuscular Hemoglobin Concent (test code = 786-4) 30.0 31-[address] [facility] HospitalRed Cell Distribution Sfywn2784-80-55 02:30:00* Test Item Value Reference Range Interpretation Comments Red Cell Distribution Width (test code = 85347-4) 15.9 11.7 -14.[address] [facility] HospitalPlatelet Rtsvz2636-68-09 02:30:00* Test Item Value Reference Range Interpretation Comments Platelet Count (test code = 777-3) 175 140-[address] [facility] HospitalNeutrophils (%) (Auto)2018-04-03 02:30:00 * Test Item Value Reference Range Interpretation Comments Neutrophils (%) (Auto) (test code = 58005-1) 69.7 38.7-80.[address] [facility] HospitalLymphocytes (%) (Auto)2018-04-03 02:30:00 * Test Item Value Reference Range Interpretation Comments Lymphocytes (%) (Auto) (test code = 736-9) 18.5 18.0-39.[address] [facility] HospitalMonocytes (%) (Auto)2018-04-03 02:30:00* Test Item Value Reference Range Interpretation Comments Monocytes (%) (Auto) (test code = 5905-5) 6.8 4.4-11.[address] [facility] HospitalEosinophils (%) (Auto)2018-04-03 02:30:00 * Test Item Value Reference Range Interpretation Comments Eosinophils (%) (Auto) (test code = 713-8) 3.3 0.0-6.[address] [facility] HospitalBasophils (%) (Auto)2018-04-03 02:30:00* Test Item Value Reference Range Interpretation Comments Basophils (%) (Auto) (test code = 706-2) 1.0 0.0-1.[address] [facility] HospitalIM GRANULOCYTES %2018-04-03 02:30:00* Test Item Value Reference Range Interpretation Comments IM GRANULOCYTES % (test code = IM GRANULOCYTES %) 0.7 0.0- 1.[address] [facility] HospitalNeutrophils # (Auto)2018-04-03 02:30:00* Test Item Value Reference Range Interpretation Comments Neutrophils # (Auto) (test code = 751-8) 4.2 2.1-6.[address] [facility] HospitalLymphocytes # (Auto)2018-04-03 02:30:00* Test Item Value Reference Range Interpretation Comments Lymphocytes # (Auto) (test code = 91675-3) 1.1 1.0-3.[address] [facility] HospitalMonocytes # (Auto)2018-04-03 02:30:00* Test Item Value Reference Range Interpretation Comments Monocytes # (Auto) (test code = 742-7) 0.4 0.2-0.[address] [facility] HospitalEosinophils # (Auto)2018-04-03 02:30:00* Test Item Value Reference Range Interpretation Comments Eosinophils # (Auto) (test code = 711-2) 0.2 0.0-0.[address] [facility] HospitalBasophils # (Auto)2018-04-03 02:30:00* Test Item Value Reference Range Interpretation Comments Basophils # (Auto) (test code = 704-7) 0.1 0.0-0.[address] [facility] HospitalAbsolute Immature Granulocyte (auto 2018-04-03 02:30:00* Test Item Value Reference Range Interpretation Comments Absolute Immature Granulocyte (auto (joseph t code = Absolute Immature Granulocyte (auto) 0.[address] [facility] HospitalCHEST SINGLE (PORTABLE)2018-04-03 02:16:00 [facility] [address] [place] [address] Patient Name: KALYANI TALAVERA MR #: [id number] : 1955 Age/Sex: 63/F Req #: [id number] Adm Physician: Ordered by: ROBERT OLIVIA MD Report #: [id number] Location: ER Room/Bed: Procedure: [id number] DX/CHEST SINGLE (PORTABLE) Ex am Date: Exam [...] 04/03/18216 COPY TO: ROBERT OLIVIA MD Bedside Rqxazxp1431-32-64 11:36:00* Test Item Value Reference Range Interpretation Comments Bedside Glucose (test code = 23655-8) 348 70-120 H Meter ID: [id number] [facility] HospitalCreatine Kinase MB 2018-02-05 06:30:00* Test Item Value Reference Range Interpretation Comments Creatine Kinase MB (test code = 15067-3) 1.40 0-5.[address] [facility] HospitalTroponin D1712-69-29 06:30:00* Test Item Value Reference Range Interpretation Comments Troponin I (test code = DRX3284) 0.007 0-0.[address] [facility] HospitalCreatine Ejubba4075-48-06 06:23:00* Test Item Value Reference Range Interpretation Comments Creatine Kinase (test code = 2157-6) 53 29-[address] [facility] HospitalTriglycerides Ravha2124-11-95 06:10:00* Test Item Value Reference Range Interpretation Comments Triglycerides Level (test code = 2571-8) 159 0-[address] [facility] HospitalCholesterol Izqcy5930-35-43 06:10:00* Test Item Value Reference Range Interpretation Comments Cholesterol Level (test code = 2093-3) 180 0-199 Less than 200 mg/dL Low Xctg306 - 239 mg/dL Borderline Pgvk798 m g/dl and greater High Risk [facility] HospitalLDL Suaoexrlwhn4353-28-25 06:10:00* Test Item Value Reference Range Interpretation Comments LDL Cholesterol (test code = 2089-1) 118 60-[address] [facility] HospitalHDL Zmhiopqpteh7108-68-37 06:10:00* Test Item Value Reference Range Interpretation Comments HDL Cholesterol (test code = 2085-9) 30 40-[address] [facility] HospitalCholesterol/HDL Jfbny9650-71-30 06:10:00 * Test Item Value Reference Range Interpretation Comments Cholesterol/HDL Ratio (test code = 9830-1) 6.0 3.0-3.[address] [facility] HospitalTriglycerides Ourme6709-93-14 06:10:00* Test Item Value Reference Range Interpretation Comments Triglycerides Level (test code = 2571-8) 159 0-[address] [facility] HospitalCholesterol Garvx2758-27-56 06:10:00* Test Item Value Reference Range Interpretation Comments Cholesterol Level (test code = 2093-3) 180 0-199 Less than 200 mg/dL Low Xpdi692 - 239 mg/dL Borderline Bagu484 m g/dl and greater High Risk [facility] HospitalLDL Zancclxmwty1718-63-36 06:10:00* Test Item Value Reference Range Interpretation Comments LDL Cholesterol (test code = 2089-1) 118 60-[address] [facility] HospitalHDL Bjoorfxlvxa3361-63-76 06:10:00* Test Item Value Reference Range Interpretation Comments HDL Cholesterol (test code = 2085-9) 30 40-[address] [facility] HospitalCholesterol/HDL Utcuz5907-46-13 06:10:00 * Test Item Value Reference Range Interpretation Comments Cholesterol/HDL Ratio (test code = 9830-1) 6.0 3.0-3.[address] [facility] HospitalTriglycerides Sfylj3877-61-10 06:10:00* Test Item Value Reference Range Interpretation Comments Triglycerides Level (test code = 2571-8) 159 0-[address] [facility] HospitalCholesterol Mijmx9312-82-46 06:10:00* Test Item Value Reference Range Interpretation Comments Cholesterol Level (test code = 2093-3) 180 0-199 Less than 200 mg/dL Low Fftv053 - 239 mg/dL Borderline Zvba719 m g/dl and greater High Risk [facility] HospitalLDL Imgbgjdavya0775-92-58 06:10:00* Test Item Value Reference Range Interpretation Comments LDL Cholesterol (test code = 2089-1) 118 60-130 [facility] Npknpqbxonp6990-68-39 06:10:00* Test Item Value Reference Range Interpretation Comments HDL Cholesterol (test code = 2085-9) 30 40-[address] [facility] HospitalCholesterol/HDL Zfagj6655-52-53 06:10:00 * Test Item Value Reference Range Interpretation Comments Cholesterol/HDL Ratio (test code = 9830-1) 6.0 3.0-3.[address] [facility] HospitalTriglycerides Zpthe5968-80-68 06:10:00* Test Item Value Reference Range Interpretation Comments Triglycerides Level (test code = 2571-8) 159 0-[address] [facility] HospitalCholesterol Ifexj4544-69-08 06:10:00* Test Item Value Reference Range Interpretation Comments Cholesterol Level (test code = 2093-3) 180 0-199 Less than 200 mg/dL Low Gmnf521 - 239 mg/dL Borderline Sndz798 m g/dl and greater High Risk [facility] Noykcqjlgrz8235-15-02 06:10:00* Test Item Value Reference Range Interpretation Comments LDL Cholesterol (test code = 2089-1) 118 60-130 [facility] Ejmdrqgjoia0655-70-20 06:10:00* Test Item Value Reference Range Interpretation Comments HDL Cholesterol (test code = 2085-9) 30 40-[address] [facility] HospitalCholesterol/HDL Xjgvh8697-31-60 06:10:00 * Test Item Value Reference Range Interpretation Comments Cholesterol/HDL Ratio (test code = 9830-1) 6.0 3.0-3.[address] [facility] HospitalTriglycerides Qtced9787-93-59 06:10:00* Test Item Value Reference Range Interpretation Comments Triglycerides Level (test code = 2571-8) 159 0-[address] [facility] HospitalCholesterol Ljhjy2160-75-60 06:10:00* Test Item Value Reference Range Interpretation Comments Cholesterol Level (test code = 2093-3) 180 0-199 Less than 200 mg/dL Low Xzfu742 - 239 mg/dL Borderline Apdc238 m g/dl and greater High Risk [facility] HospitalLDL Subnxmknfbg9575-84-59 06:10:00* Test Item Value Reference Range Interpretation Comments LDL Cholesterol (test code = 2089-1) 118 60-[address] [facility] HospitalHDL Lldcugppesu6083-51-82 06:10:00* Test Item Value Reference Range Interpretation Comments HDL Cholesterol (test code = 2085-9) 30 40-[address] [facility] HospitalCholesterol/HDL Ysncs3436-49-12 06:10:00 * Test Item Value Reference Range Interpretation Comments Cholesterol/HDL Ratio (test code = 9830-1) 6.0 3.0-3.[address] [facility] HospitalCHEST SINGLE (PORTABLE)2018-02-04 11:35:00 [facility] [address] [place] [address] Patient Name: KALYANI TALAVERA MR #: [id number] : 1955 Age/Sex: 62/F Req #: [id number] Adm Physician: Ordered by: ROBERT OLIVIA MD Report #: [id number] Location: ER Room/Bed: Procedure: [id number] DX/CHEST SINGLE (PORTABLE) Ex am Date: 02/04/18 [...] COPY TO: ROBERT OLIVIA MD White Blood Zsrwi8723-85-91 11:19:00* Test Item Value Reference Range Interpretation Comments White Blood Count (test code = 6690-2) 6.94 4.8-10.[address] [facility] HospitalRed Blood Iapbx6673-99-25 11:19:00* Test Item Value Reference Range Interpretation Comments Red Blood Count (test code = 789-8) 4.49 3.6-5.[address] [facility] HospitalHemoglobin2018-07-15 11:19:00* Test Item Value Reference Range Interpretation Comments Hemoglobin (test code = 71111-2) 11.3 12.0-16.[address] [facility] HospitalHematocrit2018-07-15 11:19:00* Test Item Value Reference Range Interpretation Comments Hematocrit (test code = 4544-3) 37.6 34.2-44.[address] [facility] HospitalMean Corpuscular Atlcyn5441-87-36 11:19:00* Test Item Value Reference Range Interpretation Comments Mean Corpuscular Volume (test code = 787-2) 83.7 81-99 [facility] Corpuscular Vclcgbzlgi9850-29-60 11:19:00* Test Item Value Reference Range Interpretation Comments Mean Corpuscular Hemoglobin (test code = 785-6) 25.2 28-32 L [facility] Corpuscular Hemoglobin Concent 2018-02-04 11:19:00* Test Item Value Reference Range Interpretation Comments Mean Corpuscular Hemoglobin Concent (test code = 786-4) 30.1 31-[address] [facility] HospitalRed Cell Distribution Edrgg9441-22-66 11:19:00* Test Item Value Reference Range Interpretation Comments Red Cell Distribution Width (test code = 69157-7) 15.7 11.7 -14.[address] [facility] HospitalPlatelet Gcmkc0304-70-22 11:19:00* Test Item Value Reference Range Interpretation Comments Platelet Count (test code = 777-3) 217 140-[address] [facility] HospitalNeutrophils (%) (Auto)2018-02-04 11:19:00 * Test Item Value Reference Range Interpretation Comments Neutrophils (%) (Auto) (test code = 73872-3) 70.5 38.7-80.[address] [facility] HospitalLymphocytes (%) (Auto)2018-02-04 11:19:00 * Test Item Value Reference Range Interpretation Comments Lymphocytes (%) (Auto) (test code = 736-9) 19.0 18.0-39.[address] [facility] HospitalMonocytes (%) (Auto)2018-02-04 11:19:00* Test Item Value Reference Range Interpretation Comments Monocytes (%) (Auto) (test code = 5905-5) 5.3 4.4-11.[address] [facility] HospitalEosinophils (%) (Auto)2018-02-04 11:19:00 * Test Item Value Reference Range Interpretation Comments Eosinophils (%) (Auto) (test code = 713-8) 3.2 0.0-6.[address] [facility] HospitalBasophils (%) (Auto)2018-02-04 11:19:00* Test Item Value Reference Range Interpretation Comments Basophils (%) (Auto) (test code = 706-2) 1.0 0.0-1.[address] [facility] HospitalIM GRANULOCYTES %2018-02-04 11:19:00* Test Item Value Reference Range Interpretation Comments IM GRANULOCYTES % (test code = IM GRANULOCYTES %) 1.0 0.0- 1.[address] [facility] HospitalNeutrophils # (Auto)2018-02-04 11:19:00* Test Item Value Reference Range Interpretation Comments Neutrophils # (Auto) (test code = 751-8) 4.9 2.1-6.[address] [facility] HospitalLymphocytes # (Auto)2018-02-04 11:19:00* Test Item Value Reference Range Interpretation Comments Lymphocytes # (Auto) (test code = 90019-8) 1.3 1.0-3.[address] [facility] HospitalMonocytes # (Auto)2018-02-04 11:19:00* Test Item Value Reference Range Interpretation Comments Monocytes # (Auto) (test code = 742-7) 0.4 0.2-0.[address] [facility] HospitalEosinophils # (Auto)2018-02-04 11:19:00* Test Item Value Reference Range Interpretation Comments Eosinophils # (Auto) (test code = 711-2) 0.2 0.0-0.[address] [facility] HospitalBasophils # (Auto)2018-02-04 11:19:00* Test Item Value Reference Range Interpretation Comments Basophils # (Auto) (test code = 704-7) 0.1 0.0-0.[address] [facility] HospitalAbsolute Immature Granulocyte (auto 2018-02-04 11:19:00* Test Item Value Reference Range Interpretation Comments Absolute Immature Granulocyte (auto (joseph t code = Absolute Immature Granulocyte (auto) 0.07 0-0.[address] [facility] HospitalUrine Orcjy5921-86-19 11:17:00* Test Item Value Reference Range Interpretation Comments Urine Color (test code = 5778-6) YELLOW YELLOW [facility] HospitalUrine Nwknevd6572-03-21 11:17:00* Test Item Value Reference Range Interpretation Comments Urine Clarity (test code = 41041-4) CLEAR CLEAR [facility] HospitalUrine Specific Miudrjw6396-71-40 11:17:00 * Test Item Value Reference Range Interpretation Comments Urine Specific [place] (test code = 5811-5) 1.010 1.010-1.[address] [facility] HospitalUrine eO2759-43-45 11:17:00* Test Item Value Reference Range Interpretation Comments Urine pH (test code = 84789-9) 6 5-[address] [facility] HospitalUrine Leukocyte Ajocmkaq7739-88-04 11:17:00* Test Item Value Reference Range Interpretation Comments Urine Leukocyte Esterase (test code = 5799-2) NEGATIVE NEGATIVE [facility] HospitalUrine Kizxasi7763-63-19 11:17:00* Test Item Value Reference Range Interpretation Comments Urine Nitrite (test code = 99185-2) NEGATIVE NEGATIVE [facility] HospitalUrine Yjtfsvv4721-34-16 11:17:00* Test Item Value Reference Range Interpretation Comments Urine Protein (test code = 5804-0) NEGATIVE NEGATIVE [facility] HospitalUrine Glucose (UA)2018-02-04 11:17:00* Test Item Value Reference Range Interpretation Comments Urine Glucose (UA) (test code = 2349-9) NEGATIVE NEGATIVE [facility] HospitalUrine Mlkrejr7587-96-33 11:17:00* Test Item Value Reference Range Interpretation Comments Urine Ketones (test code = 21181-9) NEGATIVE NEGATIVE [facility] HospitalUrine Opiates Ugpclc2488-73-68 11:17:00* Test Item Value Reference Range Interpretation Comments Urine Opiates Screen (test code = 33814-3) NEGATIVE NEGATIVE [facility] HospitalUrine Barbiturates Lvivqc5697-13-26 11:17:00* Test Item Value Reference Range Interpretation Comments Urine Barbiturates Screen (test code = 403356985) NEGATIVE NEGA TIVE [facility] HospitalUrine Phencyclidine Jcacnd0765-55-42 11:17:00* Test Item Value Reference Range Interpretation Comments Urine Phencyclidine Screen (test code = 91466-3) NEGATIVE NEGAT MARY [facility] HospitalUrine Amphetamines Gwviqz3905-88-14 11:17:00* Test Item Value Reference Range Interpretation Comments Urine Amphetamines Screen (test code = 93849-4) NEGATIVE NEGATI VE [facility] HospitalUrine Methamphetamines Znygro8761-64-34 11:17:00* Test Item Value Reference Range Interpretation Comments Urine Methamphetamines Screen (test code = Urine Metha mphetamines Screen) NEGATIVE NEGATIVE [facility] HospitalUrine Benzodiazepines Plhifv7214-45-42 11:17:00* Test Item Value Reference Range Interpretation Comments Urine Benzodiazepines Screen (test code = 38775-6) NEGATIVE NEG ATIVE [facility] HospitalUrine Cocaine Nlrvvd9974-68-20 11:17:00* Test Item Value Reference Range Interpretation Comments Urine Cocaine Screen (test code = 3398-5) NEGATIVE NEGATIVE [facility] Cannabinoids Effusy2852-91-17 11:17:00* Test Item Value Reference Range Interpretation Comments Urine Cannabinoids Screen (test code = 17742-8) NEGATIVE NEGATI VE THESE RESULTS ARE FOR MEDICAL TREATMENT ONLYTHIS REPORT CONTAINS UNCONFIR MED SCREENING RESULTS*POSITIVE RESULTS WILL BE CONFIRMED BY REFERENCE LAB UPON R EQUEST CUT-OFFDRUG CLASS CONCENTRATION ng/mLAmphetamines 1000Methamphetamines 1000Cocaine 300Opiate 300Phencyc lidine 25Cannabinoid 50Barbiturates 300Benzodiazepine 300Methadone [address] HospitalUrine Jgtlghoyqgmv4059-26-34 11:17:00* Test Item Value Reference Range Interpretation Comments Urine Urobilinogen (test code = 63070-8) 0.2 0.2-[address] [facility] HospitalUrine Ekfslvfvx8184-07-11 11:17:00* Test Item Value Reference Range Interpretation Comments Urine Bilirubin (test code = 1978-6) NEGATIVE NEGATIVE [facility] HospitalUrine Semsf6111-35-56 11:17:00* Test Item Value Reference Range Interpretation Comments Urine Blood (test code = 11657-9) NEGATIVE NEGATIVE [facility] HospitalUrine WWZ2326-32-40 11:17:00* Test Item Value Reference Range Interpretation Comments Urine WBC (test code = 5821-4) 0-5 0-[address] [facility] [facility] HospitalUrine KZV7230-32-86 11:17:00* Test Item Value Reference Range Interpretation Comments Urine RBC (test code = 36427-9) NONE 0-[address] [facility] HospitalUrine Cssypzxr5848-43-85 11:17:00* Test Item Value Reference Range Interpretation Comments Urine Bacteria (test code = 44964-7) FEW NONE [facility] HospitalUrine Epithelial Zocmn5504-42-48 11:17:00 * Test Item Value Reference Range Interpretation Comments Urine Epithelial Cells (test code = 44479-5) MODERATE NONE [facility] HospitalUrine Zrsok0640-04-22 11:17:00* Test Item Value Reference Range Interpretation Comments Urine Mucus (test code = 8247-9) FEW RARE H [facility] HospitalUrine Opiates Itbnvq7349-55-28 11:17:00* Test Item Value Reference Range Interpretation Comments Urine Opiates Screen (test code = 97135-8) NEGATIVE NEGATIVE [facility] Barbiturates Twbuzz4586-90-99 11:17:00* Test Item Value Reference Range Interpretation Comments Urine Barbiturates Screen (test code = 579886515) NEGATIVE NEGA TIVE [facility] HospitalUrine Phencyclidine Ccboib6021-61-52 11:17:00* Test Item Value Reference Range Interpretation Comments Urine Phencyclidine Screen (test code = 92070-6) NEGATIVE NEGAT MARY [facility] HospitalUrine Amphetamines Ifqfuv9316-10-94 11:17:00* Test Item Value Reference Range Interpretation Comments Urine Amphetamines Screen (test code = 57017-0) NEGATIVE NEGATI VE [facility] HospitalUrine Methamphetamines Engiiq2670-08-76 11:17:00* Test Item Value Reference Range Interpretation Comments Urine Methamphetamines Screen (test code = Urine Metha mphetamines Screen) NEGATIVE NEGATIVE [facility] [facility] Jpcbky3530-26-27 11:17:00* Test Item Value Reference Range Interpretation Comments Urine Benzodiazepines Screen (test code = 29550-2) NEGATIVE NEG ATIVE [facility] Cocaine Zcawvl2086-65-07 11:17:00* Test Item Value Reference Range Interpretation Comments Urine Cocaine Screen (test code = 3398-5) NEGATIVE NEGATIVE [facility] Cannabinoids Psrlcr3998-06-53 11:17:00* Test Item Value Reference Range Interpretation Comments Urine Cannabinoids Screen (test code = 47906-8) NEGATIVE NEGATI VE THESE RESULTS ARE FOR MEDICAL TREATMENT ONLYTHIS REPORT CONTAINS UNCONFIR MED SCREENING RESULTS*POSITIVE RESULTS WILL BE CONFIRMED BY REFERENCE LAB UPON R EQUEST CUT-OFFDRUG CLASS CONCENTRATION ng/mLAmphetamines 1000Methamphetamines 1000Cocaine 300Opiate 300Phencyc lidine 25Cannabinoid 50Barbiturates 300Benzodiazepine 300Methadone 300[facility] Eelag6293-30-64 11:17:00* Test Item Value Reference Range Interpretation Comments Urine Mucus (test code = 8247-9) FEW RARE H [facility] Opiates Sallec6319-44-85 11:17:00* Test Item Value Reference Range Interpretation Comments Urine Opiates Screen (test code = 71766-2) NEGATIVE NEGATIVE [facility] Barbiturates Vogvtq2251-02-37 11:17:00* Test Item Value Reference Range Interpretation Comments Urine Barbiturates Screen (test code = 952539584) NEGATIVE NEGA TIVE [facility] Phencyclidine Penpsd5001-72-96 11:17:00* Test Item Value Reference Range Interpretation Comments Urine Phencyclidine Screen (test code = 71471-4) NEGATIVE NEGAT MARY [facility] Amphetamines Oicthe3180-10-97 11:17:00* Test Item Value Reference Range Interpretation Comments Urine Amphetamines Screen (test code = 08319-8) NEGATIVE NEGATI VE [facility] Methamphetamines Igcazz0803-00-64 11:17:00* Test Item Value Reference Range Interpretation Comments Urine Methamphetamines Screen (test code = Urine Metha mphetamines Screen) NEGATIVE NEGATIVE [facility] Benzodiazepines Jntqaa8972-81-96 11:17:00* Test Item Value Reference Range Interpretation Comments Urine Benzodiazepines Screen (test code = 03243-1) NEGATIVE NEG ATIVE [facility] Cocaine Qplqgb8172-34-76 11:17:00* Test Item Value Reference Range Interpretation Comments Urine Cocaine Screen (test code = 3398-5) NEGATIVE NEGATIVE [facility] Cannabinoids Mbwzsl4622-54-81 11:17:00* Test Item Value Reference Range Interpretation Comments Urine Cannabinoids Screen (test code = 42371-0) NEGATIVE NEGATI VE THESE RESULTS ARE FOR MEDICAL TREATMENT ONLYTHIS REPORT CONTAINS UNCONFIR MED SCREENING RESULTS*POSITIVE RESULTS WILL BE CONFIRMED BY REFERENCE LAB UPON R EQUEST CUT-OFFDRUG CLASS CONCENTRATION ng/mLAmphetamines 1000Methamphetamines 1000Cocaine 300Opiate 300Phencyc lidine 25Cannabinoid 50Barbiturates 300Benzodiazepine 300Methadone 300[facility] Mxiug5094-95-21 11:17:00* Test Item Value Reference Range Interpretation Comments Urine Mucus (test code = 8247-9) FEW RARE H [facility] Opiates Rklync5088-44-97 11:17:00* Test Item Value Reference Range Interpretation Comments Urine Opiates Screen (test code = 21250-4) NEGATIVE NEGATIVE [facility] Barbiturates Yjmmyc8058-51-87 11:17:00* Test Item Value Reference Range Interpretation Comments Urine Barbiturates Screen (test code = 686643634) NEGATIVE NEGA TIVE [facility] Phencyclidine Dxxiok1930-10-06 11:17:00* Test Item Value Reference Range Interpretation Comments Urine Phencyclidine Screen (test code = 97703-9) NEGATIVE NEGAT MARY [facility] Amphetamines Rsxqim7533-63-69 11:17:00* Test Item Value Reference Range Interpretation Comments Urine Amphetamines Screen (test code = 54711-2) NEGATIVE NEGATI VE [facility] Methamphetamines Imptte3459-63-13 11:17:00* Test Item Value Reference Range Interpretation Comments Urine Methamphetamines Screen (test code = Urine Metha mphetamines Screen) NEGATIVE NEGATIVE [facility] Benzodiazepines Zqqpzw7702-82-76 11:17:00* Test Item Value Reference Range Interpretation Comments Urine Benzodiazepines Screen (test code = 25693-4) NEGATIVE NEG ATIVE [facility] Cocaine Wvcwas9126-16-56 11:17:00* Test Item Value Reference Range Interpretation Comments Urine Cocaine Screen (test code = 3398-5) NEGATIVE NEGATIVE [facility] Cannabinoids Fokqpl2733-25-25 11:17:00* Test Item Value Reference Range Interpretation Comments Urine Cannabinoids Screen (test code = 27821-4) NEGATIVE NEGATI VE THESE RESULTS ARE FOR MEDICAL TREATMENT ONLYTHIS REPORT CONTAINS UNCONFIR MED SCREENING RESULTS*POSITIVE RESULTS WILL BE CONFIRMED BY REFERENCE LAB UPON R EQUEST CUT-OFFDRUG CLASS CONCENTRATION ng/mLAmphetamines 1000Methamphetamines 1000Cocaine 300Opiate 300Phencyc lidine 25Cannabinoid 50Barbiturates 300Benzodiazepine 300Methadone 300[facility] Ttwca8635-21-76 11:17:00* Test Item Value Reference Range Interpretation Comments Urine Mucus (test code = 8247-9) FEW RARE H [facility] Opiates Ksrdmc9664-72-12 11:17:00* Test Item Value Reference Range Interpretation Comments Urine Opiates Screen (test code = 79633-0) NEGATIVE NEGATIVE [facility] Barbiturates Wlnbvv2253-89-80 11:17:00* Test Item Value Reference Range Interpretation Comments Urine Barbiturates Screen (test code = 472847305) NEGATIVE NEGA TIVE [facility] Phencyclidine Kmivoq6132-71-49 11:17:00* Test Item Value Reference Range Interpretation Comments Urine Phencyclidine Screen (test code = 57857-6) NEGATIVE NEGAT MARY [facility] Amphetamines Rjwhse2519-73-68 11:17:00* Test Item Value Reference Range Interpretation Comments Urine Amphetamines Screen (test code = 44157-2) NEGATIVE NEGATI VE [facility] Methamphetamines Rjufei8444-06-64 11:17:00* Test Item Value Reference Range Interpretation Comments Urine Methamphetamines Screen (test code = Urine Metha mphetamines Screen) NEGATIVE NEGATIVE [facility] Benzodiazepines Isgcgm2140-60-77 11:17:00* Test Item Value Reference Range Interpretation Comments Urine Benzodiazepines Screen (test code = 91063-7) NEGATIVE NEG ATIVE [facility] Cocaine Bowkxa7185-97-90 11:17:00* Test Item Value Reference Range Interpretation Comments Urine Cocaine Screen (test code = 3398-5) NEGATIVE NEGATIVE [facility] Cannabinoids Oareys2331-16-28 11:17:00* Test Item Value Reference Range Interpretation Comments Urine Cannabinoids Screen (test code = 86348-2) NEGATIVE NEGATI VE THESE RESULTS ARE FOR MEDICAL TREATMENT ONLYTHIS REPORT CONTAINS UNCONFIR MED SCREENING RESULTS*POSITIVE RESULTS WILL BE CONFIRMED BY REFERENCE LAB UPON R EQUEST CUT-OFFDRUG CLASS CONCENTRATION ng/mLAmphetamines 1000Methamphetamines 1000Cocaine 300Opiate 300Phencyc lidine 25Cannabinoid 50Barbiturates 300Benzodiazepine 300Methadone 300[facility] BrookUrine Keyrj5173-32-59 11:17:00* Test Item Value Reference Range Interpretation Comments Urine Mucus (test code = 8247-9) FEW RARE H [facility] HospitalB-Type Natriuretic Xibgmbw5376-20-12 11:08:00* Test Item Value Reference Range Interpretation Comments B-Type Natriuretic Peptide (test code = 64604-0) 29.0 0-100 [facility] Thtyc9794-11-21 11:03:00* Test Item Value Reference Range Interpretation Comments Sodium Level (test code = 2951-2) 140 136-[address] [facility] HospitalPotassium Fwqnr9555-11-52 11:03:00* Test Item Value Reference Range Interpretation Comments Potassium Level (test code = 2823-3) 3.7 3.5-5.[address] [facility] HospitalChloride Cunln7711-55-81 11:03:00* Test Item Value Reference Range Interpretation Comments Chloride Level (test code = 2075-0) 100 98-[address] [facility] HospitalCarbon Dioxide Vudzb4350-96-12 11:03:00* Test Item Value Reference Range Interpretation Comments Carbon Dioxide Level (test code = 2028-9) 28 22-[address] [facility] HospitalAnion Slq8677-92-85 11:03:00* Test Item Value Reference Range Interpretation Comments Anion Gap (test code = 68086-8) 15.7 8-[address] [facility] HospitalBlood Urea Rhjszuuu4600-71-30 11:03:00* Test Item Value Reference Range Interpretation Comments Blood Urea Nitrogen (test code = 3094-0) 39 7-[address] [facility] HospitalCreatinine2018-07-15 11:03:00* Test Item Value Reference Range Interpretation Comments Creatinine (test code = 2160-0) 1.29 0.57-1.[address] [facility] HospitalBUN/Creatinine Irbua4200-49-45 11:03:00* Test Item Value Reference Range Interpretation Comments BUN/Creatinine Ratio (test code = 3097-3) 30 6-[address] [facility] HospitalEstimat Glomerular Filtration Rate 2018-02-04 11:03:00* Test Item Value Reference Range Interpretation Comments Estimat Glomerular Filtration Rate (test code = 84188-6) 42 >60 L Ranges were taken from the National Kidney Disease Education Program and the [facility] Kidney Foundation literature.Reference ranges:60 or greater: Ccwxic17-73 ( for 3 consecutive months): Chronic kidney disease 15 or less: Kidney failureCHI [facility]health Roll[facility] BrookGlucose Wylzy8363-31-94 11:03:00* Test Item Value Reference Range Interpretation Comments Glucose Level (test code = MKG0410) 155 74-[address] [facility] HospitalCalcium Jnikv9051-05-67 11:03:00* Test Item Value Reference Range Interpretation Comments Calcium Level (test code = 03167-3) 9.0 8.4-10.[address] [facility] HospitalMagnesium Pyvaf3236-56-62 11:03:00* Test Item Value Reference Range Interpretation Comments Magnesium Level (test code = 13309-6) 1.7 1.3-2.[address] [facility] HospitalTotal Fmnupofkj7185-37-70 11:03:00* Test Item Value Reference Range Interpretation Comments Total Bilirubin (test code = 1975-2) 0.4 0.2-1.[address] HospitalAspartate Amino Transf (AST/SGOT) 2018-02-04 11:03:00* Test Item Value Reference Range Interpretation Comments Aspartate Amino Transf (AST/SGOT) (test code = Aspartate Amino Transf (AST/SGOT)) 15 5-[address] [facility] HospitalAlanine Aminotransferase (ALT/SGPT) 2018-02-04 11:03:00* Test Item Value Reference Range Interpretation Comments Alanine Aminotransferase (ALT/SGPT) (test code = 1742-6) 20 0-[address] [facility] HospitalTotal Vrhitks1922-60-47 11:03:00* Test Item Value Reference Range Interpretation Comments Total Protein (test code = 2885-2) 6.7 6.5-8.[address] HospitalAlbumin2018-07-15 11:03:00* Test Item Value Reference Range Interpretation Comments Albumin (test code = 1751-7) 3.3 3.5-5.[address] [facility] HospitalGlobulin2018-07-15 11:03:00* Test Item Value Reference Range Interpretation Comments Globulin (test code = 44652-9) 3.4 2.3-3.[address] [facility] HospitalAlbumin/Globulin Pyimz3872-40-35 11:03:00 * Test Item Value Reference Range Interpretation Comments Albumin/Globulin Ratio (test code = 1759-0) 1.0 0.8-2.[address] [facility] HospitalAlkaline Wnewquxagkx8993-92-81 11:03:00* Test Item Value Reference Range Interpretation Comments Alkaline Phosphatase (test code = 6768-6) 63 40-[address] [facility] HospitalAmylase Coqcn2455-86-33 11:03:00* Test Item Value Reference Range Interpretation Comments Amylase Level (test code = 1798-8) 30 25-[address] [facility] HospitalLipase2018-07-15 11:03:00* Test Item Value Reference Range Interpretation Comments Lipase (test code = 3040-3) 16 8-[address] [facility] HospitalMagnesium Yajfg1611-03-24 11:03:00* Test Item Value Reference Range Interpretation Comments Magnesium Level (test code = 90755-9) 1.7 1.3-2.[address] HospitalAmylase Jqlvx6469-61-89 11:03:00* Test Item Value Reference Range Interpretation Comments Amylase Level (test code = 1798-8) 30 25-[address] [facility] HospitalLipase2018-07-15 11:03:00* Test Item Value Reference Range Interpretation Comments Lipase (test code = 3040-3) [facility] Amidm4995-97-97 11:03:00* Test Item Value Reference Range Interpretation Comments Magnesium Level (test code = 95252-2) 1.7 1.3-2.[address] HospitalAmylase Qmcsx9021-91-51 11:03:00* Test Item Value Reference Range Interpretation Comments Amylase Level (test code = 1798-8) 30 25-[address] [facility] HospitalLipase2018-07-15 11:03:00* Test Item Value Reference Range Interpretation Comments Lipase (test code = 3040-3) [facility]2018-07-15 11:03:00* Test Item Value Reference Range Interpretation Comments Magnesium Level (test code = 01463-4) 1.7 1.3-2.[address] HospitalAmylase Qparr2425-28-51 11:03:00* Test Item Value Reference Range Interpretation Comments Amylase Level (test code = 1798-8) 30 25-[address] [facility] HospitalLipase2018-07-15 11:03:00* Test Item Value Reference Range Interpretation Comments Lipase (test code = 3040-3) [facility]2018-07-15 11:03:00* Test Item Value Reference Range Interpretation Comments Magnesium Level (test code = 05110-3) 1.7 1.3-2.[address] HospitalAmylase Comgk4810-44-94 11:03:00* Test Item Value Reference Range Interpretation Comments Amylase Level (test code = 1798-8) 30 25-[address] [facility] HospitalLipase2018-07-15 11:03:00* Test Item Value Reference Range Interpretation Comments Lipase (test code = 3040-3) [facility] HospitalB-Type Natriuretic Cskgbrw0377-62-11 23:54:00* Test Item Value Reference Range Interpretation Comments B-Type Natriuretic Peptide (test code = 54100-6) 38.5 0-[address] [facility] HospitalCreatine Kinase TH8135-84-44 23:54:00* Test Item Value Reference Range Interpretation Comments Creatine Kinase MB (test code = 60019-1) 1.10 0-5.[address] HospitalTroponin [id number] 23:54:00* Test Item Value Reference Range Interpretation Comments Troponin I (test code = EJP7822) -0.001 0-0.[address] HospitalUrine REH6861-74-65 23:42:00* Test Item Value Reference Range Interpretation Comments Urine WBC (test code = 5821-4) 0-5 0-[address] [facility] [facility] HospitalUrine AAQ8330-79-68 23:42:00* Test Item Value Reference Range Interpretation Comments Urine RBC (test code = 81867-3) NONE 0-[address] [facility] HospitalUrine Uvkzkjgr6769-51-02 23:42:00* Test Item Value Reference Range Interpretation Comments Urine Bacteria (test code = 18955-1) RARE NONE [facility] HospitalUrine Epithelial Thtih8729-49-15 23:42:00 * Test Item Value Reference Range Interpretation Comments Urine Epithelial Cells (test code = 83514-7) RARE NONE [facility] Centerodium Koqfx2708-55-35 23:39:00* Test Item Value Reference Range Interpretation Comments Sodium Level (test code = 2951-2) 135 136-[address] HospitalPotassium Wkeoc4120-71-10 23:39:00* Test Item Value Reference Range Interpretation Comments Potassium Level (test code = 2823-3) 4.3 3.5-5.[address] HospitalChloride Selgx1759-32-58 23:39:00* Test Item Value Reference Range Interpretation Comments Chloride Level (test code = 2075-0) 99 98-[address] [facility] HospitalCarbon Dioxide Iohqr9405-69-76 23:39:00* Test Item Value Reference Range Interpretation Comments Carbon Dioxide Level (test code = 2028-9) 25 22-[address] [facility] HospitalAnion Hur9247-71-01 23:39:00* Test Item Value Reference Range Interpretation Comments Anion Gap (test code = 79352-2) 15.3 8-[address] [facility] HospitalBlood Urea Zmdyygre8335-37-18 23:39:00* Test Item Value Reference Range Interpretation Comments Blood Urea Nitrogen (test code = 3094-0) 33 7-[address] [facility] HospitalCreatinine2018-07-11 23:39:00* Test Item Value Reference Range Interpretation Comments Creatinine (test code = 2160-0) 1.41 0.57-1.[address] [facility] HospitalBUN/Creatinine Nhjwm3465-44-29 23:39:00* Test Item Value Reference Range Interpretation Comments BUN/Creatinine Ratio (test code = 3097-3) 23 6-[address] [facility] HospitalEstimat Glomerular Filtration Rate 2018-01-31 23:39:00* Test Item Value Reference Range Interpretation Comments Estimat Glomerular Filtration Rate (test code = 87300-0) 38 >60 L Ranges were taken from the National Kidney Disease Education Program and the [facility] Kidney Foundation literature.Reference ranges:60 or greater: Arojuf32-27 ( for 3 consecutive months): Chronic kidney disease 15 or less: Kidney failureCH[facility] HospitalGlucose Epvqd8090-75-91 23:39:00* Test Item Value Reference Range Interpretation Comments Glucose Level (test code = NOV2715) 622 74-118 HH Results called to Ann Rodriguez at 2338 on 01/31/18 by Andreea Olivier. RB OK. [facility] HospitalCalcium Iahlc1247-99-60 23:39:00* Test Item Value Reference Range Interpretation Comments Calcium Level (test code = 07756-3) 9.3 8.4-10.[address] HospitalMagnesium Rhaph4484-00-70 23:39:00* Test Item Value Reference Range Interpretation Comments Magnesium Level (test code = 95574-7) 2.0 1.3-2.[address] HospitalTotal Ujiuamfep9968-39-30 23:39:00* Test Item Value Reference Range Interpretation Comments Total Bilirubin (test code = 1975-2) 0.3 0.2-1.[address] HospitalAspartate Amino Transf (AST/SGOT) 2018-01-31 23:39:00* Test Item Value Reference Range Interpretation Comments Aspartate Amino Transf (AST/SGOT) (test code = Aspartate Amino Transf (AST/SGOT)) 10 5-[address] [facility] HospitalAlanine Aminotransferase (ALT/SGPT) 2018-01-31 23:39:00* Test Item Value Reference Range Interpretation Comments Alanine Aminotransferase (ALT/SGPT) (test code = 1742-6) 18 0-[address] [facility] HospitalTotal Ockgfqm9818-34-96 23:39:00* Test Item Value Reference Range Interpretation Comments Total Protein (test code = 2885-2) 6.7 6.5-8.[address] [facility] HospitalAlbumin2018-07-11 23:39:00* Test Item Value Reference Range Interpretation Comments Albumin (test code = 1751-7) 3.4 3.5-5.[address] [facility] HospitalGlobulin2018-07-11 23:39:00* Test Item Value Reference Range Interpretation Comments Globulin (test code = 94215-3) 3.3 2.3-3.[address] [facility] HospitalAlbumin/Globulin Hzwmf1669-46-64 23:39:00 * Test Item Value Reference Range Interpretation Comments Albumin/Globulin Ratio (test code = 1759-0) 1.0 0.8-2.[address] HospitalAlkaline Jdxcxghyhry2312-15-54 23:39:00* Test Item Value Reference Range Interpretation Comments Alkaline Phosphatase (test code = 6768-6) 63 40-[address] [facility] HospitalCreatine Lbjbtt0130-76-47 23:39:00* Test Item Value Reference Range Interpretation Comments Creatine Kinase (test code = 2157-6) 40 29-[address] [facility] HospitalProthrombin Evme3955-74-63 23:34:00* Test Item Value Reference Range Interpretation Comments Prothrombin Time (test code = 5902-2) 13.5 11.9-14.[address] [facility] HospitalProthromb Time International Ratio 2018-01-31 23:34:00* Test Item Value Reference Range Interpretation Comments Prothromb Time International Ratio (test code = 6301-6) 1.11 Oral Anticoagulant Therapy INR Values:1. Low Intensity Therapy 1.5 - 2.02 . Moderate Intensity Therapy 2.0 - 3.03. High Intensity Therapy(1) 2.5 - 3. 54. High Intensity Therapy(2) 3.0 - 4.05. Panic Value INR > 5.[address] [facility] HospitalActivated Partial Thromboplast Time 2018-01-31 23:34:00* Test Item Value Reference Range Interpretation Comments Activated Partial Thromboplast Time (test code = 15089-5) 23.4 23.8-35.[address] [facility] HospitalUrine Pugyh4205-44-06 23:34:00* Test Item Value Reference Range Interpretation Comments Urine Color (test code = 5778-6) YELLOW YELLOW [facility] HospitalUrine Qboemna7373-63-50 23:34:00* Test Item Value Reference Range Interpretation Comments Urine Clarity (test code = 00127-0) CLEAR CLEAR [facility] HospitalUrine Specific Vhgffmf9389-15-75 23:34:00 * Test Item Value Reference Range Interpretation Comments Urine Specific [place] (test code = 5811-5) 1.010 1.010-1.[address] [facility] [facility] HospitalUrine zY0910-08-32 23:34:00* Test Item Value Reference Range Interpretation Comments Urine pH (test code = 58011-1) 6 5-[address] [facility] HospitalUrine Leukocyte Qsbhtiav0836-80-51 23:34:00* Test Item Value Reference Range Interpretation Comments Urine Leukocyte Esterase (test code = 5799-2) NEGATIVE NEGATIVE [facility] HospitalUrine Ynexksp9771-22-05 23:34:00* Test Item Value Reference Range Interpretation Comments Urine Nitrite (test code = 62856-0) NEGATIVE NEGATIVE [facility] HospitalUrine Jchnvsw8952-05-55 23:34:00* Test Item Value Reference Range Interpretation Comments Urine Protein (test code = 5804-0) NEGATIVE NEGATIVE [facility] HospitalUrine Glucose (UA)2018-01-31 23:34:00* Test Item Value Reference Range Interpretation Comments Urine Glucose (UA) (test code = 2349-9) 3+ NEGATIVE H [facility] HospitalUrine Pygecxw4435-29-27 23:34:00* Test Item Value Reference Range Interpretation Comments Urine Ketones (test code = 57100-9) NEGATIVE NEGATIVE [facility] HospitalUrine Kzhhkrbruanm6426-77-53 23:34:00* Test Item Value Reference Range Interpretation Comments Urine Urobilinogen (test code = 65418-5) 0.2 0.2-[address] [facility] HospitalUrine Ivuofmruk2042-19-55 23:34:00* Test Item Value Reference Range Interpretation Comments Urine Bilirubin (test code = 1978-6) NEGATIVE NEGATIVE [facility] HospitalUrine Mifkl9964-50-19 23:34:00* Test Item Value Reference Range Interpretation Comments Urine Blood (test code = 30519-2) NEGATIVE NEGATIVE [facility] HospitalProthrombin Rkfo5756-78-51 23:34:00* Test Item Value Reference Range Interpretation Comments Prothrombin Time (test code = 5902-2) 13.5 11.9-14.[address] [facility] HospitalProthromb Time International Ratio 2018-01-31 23:34:00* Test Item Value Reference Range Interpretation Comments Prothromb Time International Ratio (test code = 6301-6) 1.11 Oral Anticoagulant Therapy INR Values:1. Low Intensity Therapy 1.5 - 2.02 . Moderate Intensity Therapy 2.0 - 3.03. High Intensity Therapy(1) 2.5 - 3. 54. High Intensity Therapy(2) 3.0 - 4.05. Panic Value INR > 5.[address] [facility] HospitalActivated Partial Thromboplast Time 2018-01-31 23:34:00* Test Item Value Reference Range Interpretation Comments Activated Partial Thromboplast Time (test code = 19921-2) 23.4 23.8-35.[address] [facility] HospitalProthrombin Chsa4852-12-43 23:34:00* Test Item Value Reference Range Interpretation Comments Prothrombin Time (test code = 5902-2) 13.5 11.9-14.[address] [facility] HospitalProthromb Time International Ratio 2018-01-31 23:34:00* Test Item Value Reference Range Interpretation Comments Prothromb Time International Ratio (test code = 6301-6) 1.11 Oral Anticoagulant Therapy INR Values:1. Low Intensity Therapy 1.5 - 2.02 . Moderate Intensity Therapy 2.0 - 3.03. High Intensity Therapy(1) 2.5 - 3. 54. High Intensity Therapy(2) 3.0 - 4.05. Panic Value INR > 5.[address] [facility] HospitalActivated Partial Thromboplast Time 2018-01-31 23:34:00* Test Item Value Reference Range Interpretation Comments Activated Partial Thromboplast Time (test code = 66180-5) 23.4 23.8-35.[address] [facility] HospitalProthrombin Dwqj2593-53-10 23:34:00* Test Item Value Reference Range Interpretation Comments Prothrombin Time (test code = 5902-2) 13.5 11.9-14.[address] [facility] HospitalProthromb Time International Ratio 2018-01-31 23:34:00* Test Item Value Reference Range Interpretation Comments Prothromb Time International Ratio (test code = 6301-6) 1.11 Oral Anticoagulant Therapy INR Values:1. Low Intensity Therapy 1.5 - 2.02 . Moderate Intensity Therapy 2.0 - 3.03. High Intensity Therapy(1) 2.5 - 3. 54. High Intensity Therapy(2) 3.0 - 4.05. Panic Value INR > 5.[address] [facility] HospitalActivated Partial Thromboplast Time 2018-01-31 23:34:00* Test Item Value Reference Range Interpretation Comments Activated Partial Thromboplast Time (test code = 51381-7) 23.4 23.8-35.[address] [facility] HospitalCHEST SINGLE (PORTABLE)2018-01-31 23:25:00 [place] [address] Patient Name: KALYANI TALAVERA MR #: [id number] : 1955 Age/Sex: 62/F Req #: [id number] Adm Physician: Ordered by: FLO TOLBERT MD Report #: [id number] Location: ER Room/Bed: Procedure: [id number] DX/CHEST SINGLE (PORTABLE) E xam Date: 01/31/18 [...] COPY TO: FLO TOLBERT MD White Blood Zxaiu7948-62-20 23:20:00* Test Item Value Reference Range Interpretation Comments White Blood Count (test code = 6690-2) 5.55 4.8-10.[address] [facility] HospitalRed Blood Aiqdh6441-01-85 23:20:00* Test Item Value Reference Range Interpretation Comments Red Blood Count (test code = 789-8) 4.21 3.6-5.[address] [facility] HospitalHemoglobin2018-07-11 23:20:00* Test Item Value Reference Range Interpretation Comments Hemoglobin (test code = 84545-2) 10.6 12.0-16.[address] [facility] HospitalHematocrit2018-07-11 23:20:00* Test Item Value Reference Range Interpretation Comments Hematocrit (test code = 4544-3) 34.8 34.2-44.[address] [facility] HospitalMean Corpuscular Gktbrd8733-68-12 23:20:00* Test Item Value Reference Range Interpretation Comments Mean Corpuscular Volume (test code = 787-2) 82.7 81-[address] [facility] HospitalMean Corpuscular Lcynkwxdwb4845-00-05 23:20:00* Test Item Value Reference Range Interpretation Comments Mean Corpuscular Hemoglobin (test code = 785-6) 25.2 28-[address] [facility] HospitalMean Corpuscular Hemoglobin Concent 2018-01-31 23:20:00* Test Item Value Reference Range Interpretation Comments Mean Corpuscular Hemoglobin Concent (test code = 786-4) 30.5 31-[address] [facility] HospitalRed Cell Distribution Zjmpr0713-01-38 23:20:00* Test Item Value Reference Range Interpretation Comments Red Cell Distribution Width (test code = 53043-0) 15.5 11.7 -14.[address] [facility] HospitalPlatelet Qkjnb7001-22-65 23:20:00* Test Item Value Reference Range Interpretation Comments Platelet Count (test code = 777-3) 176 140-[address] [facility] HospitalNeutrophils (%) (Auto)2018-01-31 23:20:00 * Test Item Value Reference Range Interpretation Comments Neutrophils (%) (Auto) (test code = 31676-5) 68.7 38.7-80.[address] HospitalLymphocytes (%) (Auto)2018-01-31 23:20:00 * Test Item Value Reference Range Interpretation Comments Lymphocytes (%) (Auto) (test code = 736-9) 21.8 18.0-39.[address] [facility] HospitalMonocytes (%) (Auto)2018-01-31 23:20:00* Test Item Value Reference Range Interpretation Comments Monocytes (%) (Auto) (test code = 5905-5) 5.0 4.4-11.[address] [facility] HospitalEosinophils (%) (Auto)2018-01-31 23:20:00 * Test Item Value Reference Range Interpretation Comments Eosinophils (%) (Auto) (test code = 713-8) 2.5 0.0-6.[address] [facility] HospitalBasophils (%) (Auto)2018-01-31 23:20:00* Test Item Value Reference Range Interpretation Comments Basophils (%) (Auto) (test code = 706-2) 0.9 0.0-1.[address] HospitalIM GRANULOCYTES %2018-01-31 23:20:00* Test Item Value Reference Range Interpretation Comments IM GRANULOCYTES % (test code = IM GRANULOCYTES %) 1.1 0.0- 1.[address] [facility] HospitalNeutrophils # (Auto)2018-01-31 23:20:00* Test Item Value Reference Range Interpretation Comments Neutrophils # (Auto) (test code = 751-8) 3.8 2.1-6.[address] [facility] HospitalLymphocytes # (Auto)2018-01-31 23:20:00* Test Item Value Reference Range Interpretation Comments Lymphocytes # (Auto) (test code = 33533-6) 1.2 1.0-3.[address] HospitalMonocytes # (Auto)2018-01-31 23:20:00* Test Item Value Reference Range Interpretation Comments Monocytes # (Auto) (test code = 742-7) 0.3 0.2-0.[address] [facility] HospitalEosinophils # (Auto)2018-01-31 23:20:00* Test Item Value Reference Range Interpretation Comments Eosinophils # (Auto) (test code = 711-2) 0.1 0.0-0.[address] [facility] HospitalBasophils # (Auto)2018-01-31 23:20:00* Test Item Value Reference Range Interpretation Comments Basophils # (Auto) (test code = 704-7) 0.1 0.0-0.[address] [facility] HospitalAbsolute Immature Granulocyte (auto 2018-01-31 23:20:00* Test Item Value Reference Range Interpretation Comments Absolute Immature Granulocyte (auto (joseph t code = Absolute Immature Granulocyte (auto) 0.06 0-0.1 [facility] Ayiiyxr8828-03-87 18:58:00* Test Item Value Reference Range Interpretation Comments Bedside Glucose (test code = 16261-7) 293 70-120 H Meter ID: [id number] [facility] Glucose 2017-12-28 14:17:00* Test Item Value Reference Range Interpretation Comments Bedside Glucose (test code = 64696-0) 330 70-120 H Meter ID: [id number] [facility] BrookKNEE RIGHT THREE AMYWY7367-54-15 10:49:00 [facility] [address] [place] [address] Patient Name: KALYANI TALAVERA MR #: [id number] : 1955 Age/Sex: 62/F Req #: [id number] Adm Physician: BENJAMIN MASTERS MD Ordered by: LUCILLE OLIVO MD Report #: [id number] Location: [facility] Room/Bed: [place] [address] Procedure: [id number] DX/KNEE RIGHT THREE VIEWS Exam Date: 12/27/17 [...] (test code = 2951-2) 137 136-[address] [facility] HospitalPotassium Rfjkk7569-20-39 09:24:00* Test Item Value Reference Range Interpretation Comments Potassium Level (test code = 2823-3) 4.5 3.5-5.[address] HospitalChloride Qweqe0546-35-70 09:24:00* Test Item Value Reference Range Interpretation Comments Chloride Level (test code = 2075-0) 102 98-[address] [facility] HospitalCarbon Dioxide Fquoi7230-07-06 09:24:00* Test Item Value Reference Range Interpretation Comments Carbon Dioxide Level (test code = 2028-9) 28 22-[address] [facility] HospitalAnion Gun0554-65-51 09:24:00* Test Item Value Reference Range Interpretation Comments Anion Gap (test code = 47064-6) 11.5 8-[address] [facility] HospitalBlood Urea Urvffmna6975-78-01 09:24:00* Test Item Value Reference Range Interpretation Comments Blood Urea Nitrogen (test code = 3094-0) 21 7-[address] [facility] HospitalCreatinine2018-06-04 09:24:00* Test Item Value Reference Range Interpretation Comments Creatinine (test code = 2160-0) 1.09 0.57-1.[address] [facility] HospitalBUN/Creatinine Xvnqs1827-81-98 09:24:00* Test Item Value Reference Range Interpretation Comments BUN/Creatinine Ratio (test code = 3097-3) 19 6-[address] [facility] HospitalEstimat Glomerular Filtration Rate 2017-12-25 09:24:00* Test Item Value Reference Range Interpretation Comments Estimat Glomerular Filtration Rate (test code = 00186-2) 51 >60 L Ranges were taken from the National Kidney Disease Education Program and the [facility] literature.Reference ranges:60 or greater: Vmpxux21-59 ( for 3 consecutive months): Chronic kidney disease 15 or less: Kidney failureCH[facility] St[facility] HospitalGlucose Qkesw2308-55-95 09:24:00* Test Item Value Reference Range Interpretation Comments Glucose Level (test code = UJD9869) 458 74-118 HH Results called to RANCHO CONTI RN at 0924 on 12/25/17 by Audi Manriquez. RB OK.Thi s test has been rerun and double checked for accuracy.[facility] HospitalCalcium Rcmim8092-02-83 09:24:00* Test Item Value Reference Range Interpretation Comments Calcium Level (test code = 29746-6) 9.0 8.4-10.[address] [facility] HospitalCreatine Kinase BJ3532-85-29 16:42:00* Test Item Value Reference Range Interpretation Comments Creatine Kinase MB (test code = 38203-7) 2.60 0-5.[address] HospitalTroponin K9185-58-15 16:42:00* Test Item Value Reference Range Interpretation Comments Troponin I (test code = EQJ9332) -0.001 0-0.[address] HospitalCreatine Boposs9334-47-75 16:36:00* Test Item Value Reference Range Interpretation Comments Creatine Kinase (test code = 2157-6) 60 29-[address] [facility] [facility] HospitalTotal Sxopxdbjp3132-30-20 08:48:00* Test Item Value Reference Range Interpretation Comments Total Bilirubin (test code = 1975-2) 0.3 0.2-1.[address] [facility] HospitalAspartate Amino Transf (AST/SGOT) 2017-12-24 08:48:00* Test Item Value Reference Range Interpretation Comments Aspartate Amino Transf (AST/SGOT) (test code = Aspartate Amino Transf (AST/SGOT)) 23 5-[address] [facility] HospitalAlanine Aminotransferase (ALT/SGPT) 2017-12-24 08:48:00* Test Item Value Reference Range Interpretation Comments Alanine Aminotransferase (ALT/SGPT) (test code = 1742-6) 45 0-[address] [facility] HospitalTotal Frcrbbj2696-77-64 08:48:00* Test Item Value Reference Range Interpretation Comments Total Protein (test code = 2885-2) 6.3 6.5-8.[address] [facility] HospitalAlbumin2018-06-03 08:48:00* Test Item Value Reference Range Interpretation Comments Albumin (test code = 1751-7) 3.2 3.5-5.[address] HospitalGlobulin2018-06-03 08:48:00* Test Item Value Reference Range Interpretation Comments Globulin (test code = 33934-5) 3.1 2.3-3.[address] [facility] HospitalAlbumin/Globulin Nujaa0531-10-72 08:48:00 * Test Item Value Reference Range Interpretation Comments Albumin/Globulin Ratio (test code = 1759-0) 1.0 0.8-2.[address] HospitalAlkaline Zdjyzbqcluv9365-51-29 08:48:00* Test Item Value Reference Range Interpretation Comments Alkaline Phosphatase (test code = 6768-6) 71 40-[address] [facility] HospitalTriglycerides Ahdrj3701-79-86 08:48:00* Test Item Value Reference Range Interpretation Comments Triglycerides Level (test code = 2571-8) 218 0-[address] [facility] HospitalCholesterol Rqebi3899-99-30 08:48:00* Test Item Value Reference Range Interpretation Comments Cholesterol Level (test code = 2093-3) 168 0-199 Less than 200 mg/dL Low Fjmi942 - 239 mg/dL Borderline Ddnv488 m g/dl and greater High Risk [facility] HospitalLDL Yhfzeokwokm4261-08-16 08:48:00* Test Item Value Reference Range Interpretation Comments LDL Cholesterol (test code = 2089-1) 96 60-[address] [facility] HospitalHDL Xwegkesabsn7985-43-01 08:48:00* Test Item Value Reference Range Interpretation Comments HDL Cholesterol (test code = 2085-9) 28 40-[address] [facility] HospitalCholesterol/HDL Vgbwx2790-72-76 08:48:00 * Test Item Value Reference Range Interpretation Comments Cholesterol/HDL Ratio (test code = 9830-1) 6.0 3.0-3.[address] [facility] HospitalTriglycerides Uczfn6810-58-39 08:48:00* Test Item Value Reference Range Interpretation Comments Triglycerides Level (test code = 2571-8) 218 0-[address] [facility] HospitalCholesterol Wzipb2263-01-48 08:48:00* Test Item Value Reference Range Interpretation Comments Cholesterol Level (test code = 2093-3) 168 0-199 Less than 200 mg/dL Low Bivk443 - 239 mg/dL Borderline Xfck474 m g/dl and greater High Risk [facility] HospitalLDL Ynylwlaxoht8203-67-62 08:48:00* Test Item Value Reference Range Interpretation Comments LDL Cholesterol (test code = 2089-1) 96 60-[address] [facility] HospitalHDL Xssoplqfjjx5238-41-04 08:48:00* Test Item Value Reference Range Interpretation Comments HDL Cholesterol (test code = 2085-9) 28 40-[address] [facility] HospitalCholesterol/HDL Qjrmv8939-64-31 08:48:00 * Test Item Value Reference Range Interpretation Comments Cholesterol/HDL Ratio (test code = 9830-1) 6.0 3.0-3.[address] HospitalWhite Blood Doneu6494-39-14 08:25:00* Test Item Value Reference Range Interpretation Comments White Blood Count (test code = 6690-2) 3.93 4.8-10.[address] [facility] HospitalRed Blood Ygoby3529-47-69 08:25:00* Test Item Value Reference Range Interpretation Comments Red Blood Count (test code = 789-8) 4.06 3.6-5.[address] [facility] HospitalHemoglobin2018-06-03 08:25:00* Test Item Value Reference Range Interpretation Comments Hemoglobin (test code = 02838-9) 10.2 12.0-16.[address] [facility] HospitalHematocrit2018-06-03 08:25:00* Test Item Value Reference Range Interpretation Comments Hematocrit (test code = 4544-3) 34.0 34.2-44.[address] [facility] HospitalMean Corpuscular Hofixm9254-78-66 08:25:00* Test Item Value Reference Range Interpretation Comments Mean Corpuscular Volume (test code = 787-2) 83.7 81-[address] [facility] [facility] HospitalMean Corpuscular Burezmywtw5342-77-45 08:25:00* Test Item Value Reference Range Interpretation Comments Mean Corpuscular Hemoglobin (test code = 785-6) 25.1 28-[address] [facility] HospitalMean Corpuscular Hemoglobin Concent 2017-12-24 08:25:00* Test Item Value Reference Range Interpretation Comments Mean Corpuscular Hemoglobin Concent (test code = 786-4) 30.0 31-[address] [facility] HospitalRed Cell Distribution Oiqkl8561-13-21 08:25:00* Test Item Value Reference Range Interpretation Comments Red Cell Distribution Width (test code = 82302-5) 15.2 11.7 -14.[address] [facility] HospitalPlatelet Lpjhw1594-01-34 08:25:00* Test Item Value Reference Range Interpretation Comments Platelet Count (test code = 777-3) 169 140-[address] [facility] [facility] HospitalNeutrophils (%) (Auto)2017-12-24 08:25:00 * Test Item Value Reference Range Interpretation Comments Neutrophils (%) (Auto) (test code = 70990-7) 59.0 38.7-80.[address] [facility] HospitalLymphocytes (%) (Auto)2017-12-24 08:25:00 * Test Item Value Reference Range Interpretation Comments Lymphocytes (%) (Auto) (test code = 736-9) 27.5 18.0-39.[address] [facility] HospitalMonocytes (%) (Auto)2017-12-24 08:25:00* Test Item Value Reference Range Interpretation Comments Monocytes (%) (Auto) (test code = 5905-5) 6.6 4.4-11.[address] [facility] HospitalEosinophils (%) (Auto)2017-12-24 08:25:00 * Test Item Value Reference Range Interpretation Comments Eosinophils (%) (Auto) (test code = 713-8) 4.8 0.0-6.[address] [facility] HospitalBasophils (%) (Auto)2017-12-24 08:25:00* Test Item Value Reference Range Interpretation Comments Basophils (%) (Auto) (test code = 706-2) 1.3 0.0-1.[address] [facility] HospitalIM GRANULOCYTES %2017-12-24 08:25:00* Test Item Value Reference Range Interpretation Comments IM GRANULOCYTES % (test code = IM GRANULOCYTES %) 0.8 0.0- 1.[address] [facility] [facility] HospitalNeutrophils # (Auto)2017-12-24 08:25:00* Test Item Value Reference Range Interpretation Comments Neutrophils # (Auto) (test code = 751-8) 2.3 2.1-6.[address] [facility] HospitalLymphocytes # (Auto)2017-12-24 08:25:00* Test Item Value Reference Range Interpretation Comments Lymphocytes # (Auto) (test code = 71709-7) 1.1 1.0-3.[address] [facility] HospitalMonocytes # (Auto)2017-12-24 08:25:00* Test Item Value Reference Range Interpretation Comments Monocytes # (Auto) (test code = 742-7) 0.3 0.2-0.[address] [facility] HospitalEosinophils # (Auto)2017-12-24 08:25:00* Test Item Value Reference Range Interpretation Comments Eosinophils # (Auto) (test code = 711-2) 0.2 0.0-0.[address] [facility] HospitalBasophils # (Auto)2017-12-24 08:25:00* Test Item Value Reference Range Interpretation Comments Basophils # (Auto) (test code = 704-7) 0.1 0.0-0.[address] [facility] HospitalAbsolute Immature Granulocyte (auto 2017-12-24 08:25:00* Test Item Value Reference Range Interpretation Comments Absolute Immature Granulocyte (auto (joseph t code = Absolute Immature Granulocyte (auto) 0.03 0-0.[address] HospitalB-Type Natriuretic Tfvrobb8613-77-59 23:03:00* Test Item Value Reference Range Interpretation Comments B-Type Natriuretic Peptide (test code = 78382-1) 125.0 0-[address] [facility] HospitalThyroid Stimulating Hormone (TSH) 2017-12-23 22:39:00* Test Item Value Reference Range Interpretation Comments Thyroid Stimulating Hormone (TSH) (test code = 56654-7) 0.865 0.350-4.[address] [facility] HospitalThyroid Stimulating Hormone (TSH) 2017-12-23 22:39:00* Test Item Value Reference Range Interpretation Comments Thyroid Stimulating Hormone (TSH) (test code = 58104-3) 0.865 0.350-4.[address] HospitalThyroid Stimulating Hormone (TSH) 2017-12-23 22:39:00* Test Item Value Reference Range Interpretation Comments Thyroid Stimulating Hormone (TSH) (test code = 93046-2) 0.865 0.350-4.[address] [facility] HospitalThyroid Stimulating Hormone (TSH) 2017-12-23 22:39:00* Test Item Value Reference Range Interpretation Comments Thyroid Stimulating Hormone (TSH) (test code = 02747-4) 0.865 0.350-4.[address] [facility] HospitalThyroid Stimulating Hormone (TSH) 2017-12-23 22:39:00* Test Item Value Reference Range Interpretation Comments Thyroid Stimulating Hormone (TSH) (test code = 29479-8) 0.865 0.350-4.[address] [facility] HospitalThyroid Stimulating Hormone (TSH) 2017-12-23 22:39:00* Test Item Value Reference Range Interpretation Comments Thyroid Stimulating Hormone (TSH) (test code = 47479-0) 0.865 0.350-4.[address] [facility] HospitalThyroid Stimulating Hormone (TSH) 2017-12-23 22:39:00* Test Item Value Reference Range Interpretation Comments Thyroid Stimulating Hormone (TSH) (test code = 78988-5) 0.865 0.350-4.[address] [facility] HospitalUrine ZTE3531-33-21 22:23:00* Test Item Value Reference Range Interpretation Comments Urine WBC (test code = 5821-4) 0-5 0-[address] [facility] [facility] HospitalUrine WBT9956-88-95 22:23:00* Test Item Value Reference Range Interpretation Comments Urine RBC (test code = 89426-1) 0-5 0-[address] [facility] [facility] HospitalUrine Pklfiuqb0538-87-09 22:23:00* Test Item Value Reference Range Interpretation Comments Urine Bacteria (test code = 57679-7) RARE NONE [facility] Epithelial Hnhcd3591-61-46 22:23:00 * Test Item Value Reference Range Interpretation Comments Urine Epithelial Cells (test code = 35348-8) RARE NONE [facility] HospitalUrine Nvvfv9299-42-51 22:04:00* Test Item Value Reference Range Interpretation Comments Urine Color (test code = 5778-6) YELLOW YELLOW [facility] HospitalUrine Wgllixp2301-45-31 22:04:00* Test Item Value Reference Range Interpretation Comments Urine Clarity (test code = 70759-0) CLEAR CLEAR [facility] HospitalUrine Specific Eckzrnp7100-32-24 22:04:00 * Test Item Value Reference Range Interpretation Comments Urine Specific [place] (test code = 5811-5) 1.010 1.010-1.[address] [facility] HospitalUrine zP7983-28-57 22:04:00* Test Item Value Reference Range Interpretation Comments Urine pH (test code = 57769-6) 6 5-[address] [facility] HospitalUrine Leukocyte Hhzzlksq7338-89-33 22:04:00* Test Item Value Reference Range Interpretation Comments Urine Leukocyte Esterase (test code = 5799-2) NEGATIVE NEGATIVE [facility] HospitalUrine Xkvdiie1724-28-68 22:04:00* Test Item Value Reference Range Interpretation Comments Urine Nitrite (test code = 53163-7) NEGATIVE NEGATIVE [facility] HospitalUrine Bcccboa3426-75-86 22:04:00* Test Item Value Reference Range Interpretation Comments Urine Protein (test code = 5804-0) NEGATIVE NEGATIVE [facility] HospitalUrine Glucose (UA)2017-12-23 22:04:00* Test Item Value Reference Range Interpretation Comments Urine Glucose (UA) (test code = 2349-9) 3+ NEGATIVE H [facility] HospitalUrine Ubaxrrv9783-66-79 22:04:00* Test Item Value Reference Range Interpretation Comments Urine Ketones (test code = 26915-6) NEGATIVE NEGATIVE [facility] HospitalUrine Mmnlyxkpabfq7402-39-14 22:04:00* Test Item Value Reference Range Interpretation Comments Urine Urobilinogen (test code = 27494-2) 0.2 0.2-[address] [facility] HospitalUrine Tisrtjzpp6427-94-41 22:04:00* Test Item Value Reference Range Interpretation Comments Urine Bilirubin (test code = 1978-6) NEGATIVE NEGATIVE [facility] HospitalUrine Awell2256-95-02 22:04:00* Test Item Value Reference Range Interpretation Comments Urine Blood (test code = 88701-6) NEGATIVE NEGATIVE [facility] HospitalMagnesium Htyht1617-18-26 22:03:00* Test Item Value Reference Range Interpretation Comments Magnesium Level (test code = 38529-2) 1.8 1.3-2.[address] [facility] HospitalProthrombin Pwlx7336-12-87 21:58:00* Test Item Value Reference Range Interpretation Comments Prothrombin Time (test code = 5902-2) 13.6 11.9-14.[address] [facility] HospitalProthromb Time International Ratio 2017-12-23 21:58:00* Test Item Value Reference Range Interpretation Comments Prothromb Time International Ratio (test code = 6301-6) 1.13 Oral Anticoagulant Therapy INR Values:1. Low Intensity Therapy 1.5 - 2.02 . Moderate Intensity Therapy 2.0 - 3.03. High Intensity Therapy(1) 2.5 - 3. 54. High Intensity Therapy(2) 3.0 - 4.05. Panic Value INR > 5.[address] [facility] HospitalActivated Partial Thromboplast Time 2017-12-23 21:58:00* Test Item Value Reference Range Interpretation Comments Activated Partial Thromboplast Time (test code = 29345-2) 23.8 23.8-35.5 [facility]2018-03-27 00:04:00* Test Item Value Reference Range Interpretation Comments Blood Culture (test code = 01349517) NO GROWTH AFTER 5 DAYS, FINAL REPORT [facility]2018-03-27 00:04:00* Test Item Value Reference Range Interpretation Comments Blood Culture (test code = 19284121) NO GROWTH AFTER 5 DAYS, FINAL REPORT [facility]2018-03-27 00:04:00* Test Item Value Reference Range Interpretation Comments Blood Culture (test code = [id number]) NO GROWTH AFTER 5 DAYS, FINAL REPORT [facility]2018-03-27 00:04:00* Test Item Value Reference Range Interpretation Comments Blood Culture (test code = [id number]) NO GROWTH AFTER 5 DAYS, FINAL REPORT [facility]2018-03-27 00:04:00* Test Item Value Reference Range Interpretation Comments Blood Culture (test code = [id number]) NO GROWTH AFTER 5 DAYS, FINAL REPORT [facility]2018-03-27 00:04:00* Test Item Value Reference Range Interpretation Comments Blood Culture (test code = [id number]) NO GROWTH AFTER 5 DAYS, FINAL REPORT [facility]2018-03-27 00:04:00* Test Item Value Reference Range Interpretation Comments Blood Culture (test code = 34874549) NO GROWTH AFTER 5 DAYS, FINAL REPORT [facility] Fthegkb0429-19-83 00:04:00* Test Item Value Reference Range Interpretation Comments Blood Culture (test code = [id number]) NO GROWTH AFTER 5 DAYS, FINAL REPORT [facility]2018-03-27 00:04:00* Test Item Value Reference Range Interpretation Comments Blood Culture (test code = [id number]) NO GROWTH AFTER 5 DAYS, [facility] Vitpm3188-93-24 00:58:00* Test Item Value Reference Range Interpretation Comments Sodium Level (test code = 2951-2) 137 136-[address] [facility] HospitalPotassium Zvypy8448-67-87 00:58:00* Test Item Value Reference Range Interpretation Comments Potassium Level (test code = 2823-3) 4.1 3.5-5.[address] [facility] [facility] HospitalChloride Isagj9698-16-65 00:58:00* Test Item Value Reference Range Interpretation Comments Chloride Level (test code = 2075-0) 105 98-[address] [facility] [facility] HospitalCarbon Dioxide Apmfo4596-44-45 00:58:00* Test Item Value Reference Range Interpretation Comments Carbon Dioxide Level (test code = 2028-9) 21 22-[address] [facility] HospitalAnion Hfc7808-78-76 00:58:00* Test Item Value Reference Range Interpretation Comments Anion Gap (test code = 08349-5) 15.1 8-[address] [facility] HospitalBlood Urea Cnubpyhl5210-04-75 00:58:00* Test Item Value Reference Range Interpretation Comments Blood Urea Nitrogen (test code = 3094-0) 37 7-[address] [facility] HospitalCreatinine2018-03-22 00:58:00* Test Item Value Reference Range Interpretation Comments Creatinine (test code = 2160-0) 1.54 0.57-1.[address] [facility] HospitalBUN/Creatinine Anyno7775-07-61 00:58:00* Test Item Value Reference Range Interpretation Comments BUN/Creatinine Ratio (test code = 3097-3) 24 6-[address] [facility] HospitalEstimat Glomerular Filtration Rate 2017-10-12 00:58:00* Test Item Value Reference Range Interpretation Comments Estimat Glomerular Filtration Rate (test code = 26197-7) 34 >60 L Ranges were taken from the National Kidney Disease Education Program and the [facility] literature.Reference ranges:60 or greater: Rlrewv86-06 ( for 3 consecutive months): Chronic kidney disease 15 or less: Kidney failureCH[facility] HospitalGlucose Oweqq3137-18-11 00:58:00* Test Item Value Reference Range Interpretation Comments Glucose Level (test code = PRK8460) 286 74-[address] [facility] HospitalCalcium Kqltm5976-12-22 00:58:00* Test Item Value Reference Range Interpretation Comments Calcium Level (test code = 06325-5) 8.7 8.4-10.[address] [facility] HospitalMagnesium Xekcm0579-78-87 00:58:00* Test Item Value Reference Range Interpretation Comments Magnesium Level (test code = 91464-9) 1.6 1.3-2.[address] HospitalTotal Qzdgtnfwf0657-09-80 00:58:00* Test Item Value Reference Range Interpretation Comments Total Bilirubin (test code = 1975-2) 0.3 0.2-1.[address] HospitalAspartate Amino Transf (AST/SGOT) 2017-10-12 00:58:00* Test Item Value Reference Range Interpretation Comments Aspartate Amino Transf (AST/SGOT) (test code = Aspartate Amino Transf (AST/SGOT)) 22 5-[address] [facility] [facility] HospitalAlanine Aminotransferase (ALT/SGPT) 2017-10-12 00:58:00* Test Item Value Reference Range Interpretation Comments Alanine Aminotransferase (ALT/SGPT) (test code = 1742-6) 24 0-55 [facility] Wcdsgie8170-85-78 00:58:00* Test Item Value Reference Range Interpretation Comments Total Protein (test code = 2885-2) 6.5 6.5-8.[address] [facility] HospitalAlbumin2018-03-22 00:58:00* Test Item Value Reference Range Interpretation Comments Albumin (test code = 1751-7) 3.2 3.5-5.[address] HospitalGlobulin2018-03-22 00:58:00* Test Item Value Reference Range Interpretation Comments Globulin (test code = 20276-0) 3.3 2.3-3.[address] [facility] HospitalAlbumin/Globulin Ekjve8314-48-45 00:58:00 * Test Item Value Reference Range Interpretation Comments Albumin/Globulin Ratio (test code = 1759-0) 1.0 0.8-2.[address] HospitalAlkaline Cbjfjphdcki4724-12-14 00:58:00* Test Item Value Reference Range Interpretation Comments Alkaline Phosphatase (test code = 6768-6) 69 40-[address] [facility] HospitalB-Type Natriuretic Tordcnb2415-96-92 00:58:00* Test Item Value Reference Range Interpretation Comments B-Type Natriuretic Peptide (test code = 96302-9) 46.4 0-[address] [facility] HospitalCreatine Xafjau3817-14-49 00:58:00* Test Item Value Reference Range Interpretation Comments Creatine Kinase (test code = 2157-6) 86 29-[address] HospitalCreatine Kinase XP7134-79-46 00:58:00* Test Item Value Reference Range Interpretation Comments Creatine Kinase MB (test code = 14615-3) 3.00 0-5.[address] [facility] HospitalTroponin V7817-74-51 00:58:00* Test Item Value Reference Range Interpretation Comments Troponin I (test code = ZMT8569) -0.001 0-0.300 [facility] Centerodium Uerdk7480-26-24 00:58:00* Test Item Value Reference Range Interpretation Comments Sodium Level (test code = 2951-2) 137 136-[address] [facility] HospitalPotassium Cnttw6606-21-73 00:58:00* Test Item Value Reference Range Interpretation Comments Potassium Level (test code = 2823-3) 4.1 3.5-5.[address] [facility] HospitalChloride Byoav2479-41-56 00:58:00* Test Item Value Reference Range Interpretation Comments Chloride Level (test code = 2075-0) 105 98-[address] [facility] [facility] HospitalCarbon Dioxide Dnvgu2288-07-47 00:58:00* Test Item Value Reference Range Interpretation Comments Carbon Dioxide Level (test code = 2028-9) 21 22-[address] [facility] HospitalAnion Nok6638-10-61 00:58:00* Test Item Value Reference Range Interpretation Comments Anion Gap (test code = 75497-8) 15.1 8-[address] [facility] HospitalBlood Urea Sfvdecox7822-62-60 00:58:00* Test Item Value Reference Range Interpretation Comments Blood Urea Nitrogen (test code = 3094-0) 37 7-[address] [facility] HospitalCreatinine2018-03-22 00:58:00* Test Item Value Reference Range Interpretation Comments Creatinine (test code = 2160-0) 1.54 0.57-1.[address] [facility] HospitalBUN/Creatinine Beusl1712-72-61 00:58:00* Test Item Value Reference Range Interpretation Comments BUN/Creatinine Ratio (test code = 3097-3) 24 6-[address] [facility] HospitalEstimat Glomerular Filtration Rate 2017-10-12 00:58:00* Test Item Value Reference Range Interpretation Comments Estimat Glomerular Filtration Rate (test code = 90521-3) 34 >60 L Ranges were taken from the National Kidney Disease Education Program and the [facility] literature.Reference ranges:60 or greater: Iuxfco19-26 ( for 3 consecutive months): Chronic kidney disease 15 or less: Kidney failureCHI [facility] Roll[facility] BrookGlucose Hykcd8262-10-23 00:58:00* Test Item Value Reference Range Interpretation Comments Glucose Level (test code = OLG4470) 286 74-[address] [facility] HospitalCalcium Yyaqa5808-86-48 00:58:00* Test Item Value Reference Range Interpretation Comments Calcium Level (test code = 83896-6) 8.7 8.4-10.[address] [facility] HospitalMagnesium Nagnq2339-52-19 00:58:00* Test Item Value Reference Range Interpretation Comments Magnesium Level (test code = 12150-4) 1.6 1.3-2.[address] [facility] HospitalTotal Ycisomyxf0459-86-12 00:58:00* Test Item Value Reference Range Interpretation Comments Total Bilirubin (test code = 1975-2) 0.3 0.2-1.[address] [facility] HospitalAspartate Amino Transf (AST/SGOT) 2017-10-12 00:58:00* Test Item Value Reference Range Interpretation Comments Aspartate Amino Transf (AST/SGOT) (test code = Aspartate Amino Transf (AST/SGOT)) 22 5-[address] [facility] [facility] HospitalAlanine Aminotransferase (ALT/SGPT) 2017-10-12 00:58:00* Test Item Value Reference Range Interpretation Comments Alanine Aminotransferase (ALT/SGPT) (test code = 1742-6) 24 0-[address] [facility] [facility] HospitalTotal Roygzct9414-28-02 00:58:00* Test Item Value Reference Range Interpretation Comments Total Protein (test code = 2885-2) 6.5 6.5-8.[address] [facility] HospitalAlbumin2018-03-22 00:58:00* Test Item Value Reference Range Interpretation Comments Albumin (test code = 1751-7) 3.2 3.5-5.[address] [facility] HospitalGlobulin2018-03-22 00:58:00* Test Item Value Reference Range Interpretation Comments Globulin (test code = 38329-3) 3.3 2.3-3.[address] [facility] [facility] HospitalAlbumin/Globulin Smhgy9482-25-57 00:58:00 * Test Item Value Reference Range Interpretation Comments Albumin/Globulin Ratio (test code = 1759-0) 1.0 0.8-2.[address] [facility] HospitalAlkaline Lwzwxdsvhvo9414-61-27 00:58:00* Test Item Value Reference Range Interpretation Comments Alkaline Phosphatase (test code = 6768-6) 69 40-[address] [facility] HospitalB-Type Natriuretic Xfiigmw8269-65-75 00:58:00* Test Item Value Reference Range Interpretation Comments B-Type Natriuretic Peptide (test code = 84507-1) 46.4 0-[address] [facility] HospitalCreatine Cmdiud2055-38-89 00:58:00* Test Item Value Reference Range Interpretation Comments Creatine Kinase (test code = 2157-6) 86 29-[address] HospitalCreatine Kinase LX3394-38-37 00:58:00* Test Item Value Reference Range Interpretation Comments Creatine Kinase MB (test code = 82186-0) 3.00 0-5.[address] HospitalTroponin J1670-55-88 00:58:00* Test Item Value Reference Range Interpretation Comments Troponin I (test code = BWF2442) -0.001 0-0.300 [facility] Centerodium Cumxo2030-11-74 00:58:00* Test Item Value Reference Range Interpretation Comments Sodium Level (test code = 2951-2) 137 136-[address] [facility] HospitalPotassium Oyxhv3793-88-27 00:58:00* Test Item Value Reference Range Interpretation Comments Potassium Level (test code = 2823-3) 4.1 3.5-5.[address] [facility] HospitalChloride Imkjp4054-37-85 00:58:00* Test Item Value Reference Range Interpretation Comments Chloride Level (test code = 2075-0) 105 98-[address] [facility] [facility] HospitalCarbon Dioxide Vgkwo0887-76-78 00:58:00* Test Item Value Reference Range Interpretation Comments Carbon Dioxide Level (test code = 2028-9) 21 22-[address] [facility] HospitalAnion Zbg5309-83-96 00:58:00* Test Item Value Reference Range Interpretation Comments Anion Gap (test code = 85798-1) 15.1 8-[address] [facility] HospitalBlood Urea Behsmkty6856-92-35 00:58:00* Test Item Value Reference Range Interpretation Comments Blood Urea Nitrogen (test code = 3094-0) 37 7-[address] [facility] HospitalCreatinine2018-03-22 00:58:00* Test Item Value Reference Range Interpretation Comments Creatinine (test code = 2160-0) 1.54 0.57-1.[address] [facility] HospitalBUN/Creatinine Arcpr6379-34-37 00:58:00* Test Item Value Reference Range Interpretation Comments BUN/Creatinine Ratio (test code = 3097-3) 24 6-[address] [facility] HospitalEstimat Glomerular Filtration Rate 2017-10-12 00:58:00* Test Item Value Reference Range Interpretation Comments Estimat Glomerular Filtration Rate (test code = 15748-8) 34 >60 L Ranges were taken from the National Kidney Disease Education Program and the [facility] literature.Reference ranges:60 or greater: Lszorn46-72 ( for 3 consecutive months): Chronic kidney disease 15 or less: Kidney failureCH[facility] HospitalGlucose Smhfo3230-40-99 00:58:00* Test Item Value Reference Range Interpretation Comments Glucose Level (test code = TGQ8085) 286 74-[address] [facility] HospitalCalcium Hyplw8439-75-45 00:58:00* Test Item Value Reference Range Interpretation Comments Calcium Level (test code = 96530-3) 8.7 8.4-10.[address] [facility] HospitalMagnesium Brcgk0633-25-09 00:58:00* Test Item Value Reference Range Interpretation Comments Magnesium Level (test code = 91820-9) 1.6 1.3-2.[address] [facility] HospitalTotal Rfrmliaqm0022-28-41 00:58:00* Test Item Value Reference Range Interpretation Comments Total Bilirubin (test code = 1975-2) 0.3 0.2-1.[address] [facility] HospitalAspartate Amino Transf (AST/SGOT) 2017-10-12 00:58:00* Test Item Value Reference Range Interpretation Comments Aspartate Amino Transf (AST/SGOT) (test code = Aspartate Amino Transf (AST/SGOT)) 22 5-[address] [facility] [facility] HospitalAlanine Aminotransferase (ALT/SGPT) 2017-10-12 00:58:00* Test Item Value Reference Range Interpretation Comments Alanine Aminotransferase (ALT/SGPT) (test code = 1742-6) 24 0-[address] [facility] [facility] HospitalTotal Rayiaki7598-41-01 00:58:00* Test Item Value Reference Range Interpretation Comments Total Protein (test code = 2885-2) 6.5 6.5-8.[address] [facility] HospitalAlbumin2018-03-22 00:58:00* Test Item Value Reference Range Interpretation Comments Albumin (test code = 1751-7) 3.2 3.5-5.[address] [facility] HospitalGlobulin2018-03-22 00:58:00* Test Item Value Reference Range Interpretation Comments Globulin (test code = 15240-4) 3.3 2.3-3.[address] [facility] HospitalAlbumin/Globulin Eydgb6136-35-26 00:58:00 * Test Item Value Reference Range Interpretation Comments Albumin/Globulin Ratio (test code = 1759-0) 1.0 0.8-2.[address] [facility] HospitalAlkaline Dbujowrpakl2608-14-53 00:58:00* Test Item Value Reference Range Interpretation Comments Alkaline Phosphatase (test code = 6768-6) 69 40-[address] [facility] HospitalB-Type Natriuretic Efopmiz3609-98-82 00:58:00* Test Item Value Reference Range Interpretation Comments B-Type Natriuretic Peptide (test code = 68834-0) 46.4 0-[address] [facility] HospitalCreatine Lreyhu7116-42-18 00:58:00* Test Item Value Reference Range Interpretation Comments Creatine Kinase (test code = 2157-6) 86 29-[address] HospitalCreatine Kinase NE8442-98-74 00:58:00* Test Item Value Reference Range Interpretation Comments Creatine Kinase MB (test code = 36789-4) 3.00 0-5.[address] [facility] HospitalTroponin B1457-81-03 00:58:00* Test Item Value Reference Range Interpretation Comments Troponin I (test code = TMN8131) -0.001 0-0.[address] [facility] HospitalLactic Acid Qumyc0849-28-88 00:40:00* Test Item Value Reference Range Interpretation Comments Lactic Acid Level (test code = Lactic Acid Level) 14.6 4.5- 19.[address] [facility] HospitalLactic Acid Grydl6855-69-21 00:40:00* Test Item Value Reference Range Interpretation Comments Lactic Acid Level (test code = Lactic Acid Level) 14.6 4.5- 19.[address] [facility] HospitalLactic Acid Fplcv5161-34-77 00:40:00* Test Item Value Reference Range Interpretation Comments Lactic Acid Level (test code = Lactic Acid Level) 14.6 4.5- 19.[address] [facility] HospitalLactic Acid Jluxn5464-61-25 00:40:00* Test Item Value Reference Range Interpretation Comments Lactic Acid Level (test code = Lactic Acid Level) 14.6 4.5- 19.[address] [facility] HospitalLactic Acid Mypat8932-53-76 00:40:00* Test Item Value Reference Range Interpretation Comments Lactic Acid Level (test code = Lactic Acid Level) 14.6 4.5- 19.[address] [facility] HospitalLactic Acid Aitau1715-43-45 00:40:00* Test Item Value Reference Range Interpretation Comments Lactic Acid Level (test code = Lactic Acid Level) 14.6 4.5- 19.[address] [facility] HospitalLactic Acid Yhacp2415-44-07 00:40:00* Test Item Value Reference Range Interpretation Comments Lactic Acid Level (test code = Lactic Acid Level) 14.6 4.5- 19.[address] [facility] HospitalLactic Acid Jdtdg9616-95-16 00:40:00* Test Item Value Reference Range Interpretation Comments Lactic Acid Level (test code = Lactic Acid Level) 14.6 4.5- 19.8 [facility] FOC1475-49-73 00:38:00* Test Item Value Reference Range Interpretation Comments Urine WBC (test code = 5821-4) 0-5 0-[address] [facility] [facility] HospitalUrine EVN2760-44-19 00:38:00* Test Item Value Reference Range Interpretation Comments Urine RBC (test code = 52137-5) 0-5 0-[address] [facility] [facility] HospitalUrine Jtavptua9230-34-19 00:38:00* Test Item Value Reference Range Interpretation Comments Urine Bacteria (test code = 37146-3) RARE NONE [facility] HospitalUrine Epithelial Igvdk2541-46-28 00:38:00 * Test Item Value Reference Range Interpretation Comments Urine Epithelial Cells (test code = 54313-3) FEW NONE [facility] HospitalUrine UVC1652-07-26 00:38:00* Test Item Value Reference Range Interpretation Comments Urine WBC (test code = 5821-4) 0-5 0-[address] [facility] HospitalUrine JUP7704-56-73 00:38:00* Test Item Value Reference Range Interpretation Comments Urine RBC (test code = 53539-6) 0-5 0-[address] [facility] [facility] HospitalUrine Xzvsyrlk1502-04-45 00:38:00* Test Item Value Reference Range Interpretation Comments Urine Bacteria (test code = 72247-9) RARE NONE [facility] HospitalUrine Epithelial Gvxzz9365-24-63 00:38:00 * Test Item Value Reference Range Interpretation Comments Urine Epithelial Cells (test code = 84199-8) FEW NONE [facility] HospitalUrine GJM5840-66-80 00:38:00* Test Item Value Reference Range Interpretation Comments Urine WBC (test code = 5821-4) 0-5 0-[address] [facility] [facility] HospitalUrine IRB8026-30-11 00:38:00* Test Item Value Reference Range Interpretation Comments Urine RBC (test code = 86170-2) 0-5 0-[address] [facility] [facility] HospitalUrine Qhxflbrk8334-67-27 00:38:00* Test Item Value Reference Range Interpretation Comments Urine Bacteria (test code = 82294-3) RARE NONE [facility] HospitalUrine Epithelial Xfozm7647-23-20 00:38:00 * Test Item Value Reference Range Interpretation Comments Urine Epithelial Cells (test code = 83114-6) FEW NONE [facility] HospitalProthrombin Mnxq2573-53-08 00:31:00* Test Item Value Reference Range Interpretation Comments Prothrombin Time (test code = 5902-2) 12.5 11.9-14.[address] HospitalProthromb Time International Ratio 2017-10-12 00:31:00* Test Item Value Reference Range Interpretation Comments Prothromb Time International Ratio (test code = 6301-6) 1.01 Oral Anticoagulant Therapy INR Values:1. Low Intensity Therapy 1.5 - 2.02 . Moderate Intensity Therapy 2.0 - 3.03. High Intensity Therapy(1) 2.5 - 3. 54. High Intensity Therapy(2) 3.0 - 4.05. Panic Value INR > 5.[address] [facility] HospitalActivated Partial Thromboplast Time 2017-10-12 00:31:00* Test Item Value Reference Range Interpretation Comments Activated Partial Thromboplast Time (test code = 35494-2) 17.7 23.8-35.[address] [facility] HospitalProthrombin Kmqr9192-06-77 00:31:00* Test Item Value Reference Range Interpretation Comments Prothrombin Time (test code = 5902-2) 12.5 11.9-14.[address] [facility] HospitalProthromb Time International Ratio 2017-10-12 00:31:00* Test Item Value Reference Range Interpretation Comments Prothromb Time International Ratio (test code = 6301-6) 1.01 Oral Anticoagulant Therapy INR Values:1. Low Intensity Therapy 1.5 - 2.02 . Moderate Intensity Therapy 2.0 - 3.03. High Intensity Therapy(1) 2.5 - 3. 54. High Intensity Therapy(2) 3.0 - 4.05. Panic Value INR > 5.[address] [facility] [facility] HospitalActivated Partial Thromboplast Time 2017-10-12 00:31:00* Test Item Value Reference Range Interpretation Comments Activated Partial Thromboplast Time (test code = 62329-1) 17.7 23.8-35.[address] [facility] HospitalProthrombin Mecs3516-35-79 00:31:00* Test Item Value Reference Range Interpretation Comments Prothrombin Time (test code = 5902-2) 12.5 11.9-14.[address] [facility] HospitalProthromb Time International Ratio 2017-10-12 00:31:00* Test Item Value Reference Range Interpretation Comments Prothromb Time International Ratio (test code = 6301-6) 1.01 Oral Anticoagulant Therapy INR Values:1. Low Intensity Therapy 1.5 - 2.02 . Moderate Intensity Therapy 2.0 - 3.03. High Intensity Therapy(1) 2.5 - 3. 54. High Intensity Therapy(2) 3.0 - 4.05. Panic Value INR > 5.[address] [facility] [facility] HospitalActivated Partial Thromboplast Time 2017-10-12 00:31:00* Test Item Value Reference Range Interpretation Comments Activated Partial Thromboplast Time (test code = 25578-0) 17.7 23.8-35.[address] [facility] HospitalWhite Blood Datxn6733-26-71 00:19:00* Test Item Value Reference Range Interpretation Comments White Blood Count (test code = 6690-2) 6.20 4.8-10.[address] [facility] HospitalRed Blood Ncbxe4376-68-62 00:19:00* Test Item Value Reference Range Interpretation Comments Red Blood Count (test code = 789-8) 4.11 3.6-5.[address] [facility] HospitalHemoglobin2018-03-22 00:19:00* Test Item Value Reference Range Interpretation Comments Hemoglobin (test code = 02972-1) 10.7 12.0-16.[address] [facility] HospitalHematocrit2018-03-22 00:19:00* Test Item Value Reference Range Interpretation Comments Hematocrit (test code = 4544-3) 35.7 34.2-44.[address] [facility] [facility] HospitalMean Corpuscular Dbejpq2745-41-81 00:19:00* Test Item Value Reference Range Interpretation Comments Mean Corpuscular Volume (test code = 787-2) 86.9 81-[address] [facility] [facility] [facility] HospitalMean Corpuscular Cunhaljuts5010-45-84 00:19:00* Test Item Value Reference Range Interpretation Comments Mean Corpuscular Hemoglobin (test code = 785-6) 26.0 28-[address] [facility] HospitalMean Corpuscular Hemoglobin Concent 2017-10-12 00:19:00* Test Item Value Reference Range Interpretation Comments Mean Corpuscular Hemoglobin Concent (test code = 786-4) 30.0 31-[address] [facility] HospitalRed Cell Distribution Dzepg9832-26-80 00:19:00* Test Item Value Reference Range Interpretation Comments Red Cell Distribution Width (test code = 22979-9) 15.1 11.7 -14.[address] [facility] HospitalPlatelet Hzbek6938-17-38 00:19:00* Test Item Value Reference Range Interpretation Comments Platelet Count (test code = 777-3) 186 140-[address] [facility] HospitalNeutrophils (%) (Auto)2017-10-12 00:19:00 * Test Item Value Reference Range Interpretation Comments Neutrophils (%) (Auto) (test code = 95358-9) 65.3 38.7-80.[address] HospitalLymphocytes (%) (Auto)2017-10-12 00:19:00 * Test Item Value Reference Range Interpretation Comments Lymphocytes (%) (Auto) (test code = 736-9) 24.5 18.0-39.[address] HospitalMonocytes (%) (Auto)2017-10-12 00:19:00* Test Item Value Reference Range Interpretation Comments Monocytes (%) (Auto) (test code = 5905-5) 5.5 4.4-11.[address] HospitalEosinophils (%) (Auto)2017-10-12 00:19:00 * Test Item Value Reference Range Interpretation Comments Eosinophils (%) (Auto) (test code = 713-8) 2.7 0.0-6.[address] HospitalBasophils (%) (Auto)2017-10-12 00:19:00* Test Item Value Reference Range Interpretation Comments Basophils (%) (Auto) (test code = 706-2) 1.0 0.0-1.[address] [facility] [facility] HospitalIM GRANULOCYTES %2017-10-12 00:19:00* Test Item Value Reference Range Interpretation Comments IM GRANULOCYTES % (test code = IM GRANULOCYTES %) 1.0 0.0- 1.[address] [facility] HospitalNeutrophils # (Auto)2017-10-12 00:19:00* Test Item Value Reference Range Interpretation Comments Neutrophils # (Auto) (test code = 751-8) 4.1 2.1-6.[address] HospitalLymphocytes # (Auto)2017-10-12 00:19:00* Test Item Value Reference Range Interpretation Comments Lymphocytes # (Auto) (test code = 22325-5) 1.5 1.0-3.[address] HospitalMonocytes # (Auto)2017-10-12 00:19:00* Test Item Value Reference Range Interpretation Comments Monocytes # (Auto) (test code = 742-7) 0.3 0.2-0.[address] HospitalEosinophils # (Auto)2017-10-12 00:19:00* Test Item Value Reference Range Interpretation Comments Eosinophils # (Auto) (test code = 711-2) 0.2 0.0-0.[address] [facility] HospitalBasophils # (Auto)2017-10-12 00:19:00* Test Item Value Reference Range Interpretation Comments Basophils # (Auto) (test code = 704-7) 0.1 0.0-0.[address] HospitalAbsolute Immature Granulocyte (auto 2017-10-12 00:19:00* Test Item Value Reference Range Interpretation Comments Absolute Immature Granulocyte (auto (joseph t code = Absolute Immature Granulocyte (auto) 0.06 0-0.[address] [facility] HospitalUrine Frvib4551-59-88 00:19:00* Test Item Value Reference Range Interpretation Comments Urine Color (test code = 5778-6) YELLOW YELLOW [facility] HospitalUrine Ajneoik4739-13-18 00:19:00* Test Item Value Reference Range Interpretation Comments Urine Clarity (test code = 64455-7) CLEAR CLEAR [facility] HospitalUrine Specific Jexkgpy5734-65-17 00:19:00 * Test Item Value Reference Range Interpretation Comments Urine Specific [place] (test code = 5811-5) 1.020 1.010-1.[address] [facility] HospitalUrine jO2223-23-98 00:19:00* Test Item Value Reference Range Interpretation Comments Urine pH (test code = 03410-5) 5 5-[address] HospitalUrine Leukocyte Riwryeht2418-76-44 00:19:00* Test Item Value Reference Range Interpretation Comments Urine Leukocyte Esterase (test code = 5799-2) NEGATIVE NEGATIVE [facility] HospitalUrine Etbbnxo5576-35-09 00:19:00* Test Item Value Reference Range Interpretation Comments Urine Nitrite (test code = 51901-4) NEGATIVE NEGATIVE [facility] HospitalUrine Kqwrvni1725-84-99 00:19:00* Test Item Value Reference Range Interpretation Comments Urine Protein (test code = 5804-0) NEGATIVE NEGATIVE [facility] HospitalUrine Glucose (UA)2017-10-12 00:19:00* Test Item Value Reference Range Interpretation Comments Urine Glucose (UA) (test code = 2349-9) 3+ NEGATIVE H [facility] HospitalUrine Cdefpqm9104-99-46 00:19:00* Test Item Value Reference Range Interpretation Comments Urine Ketones (test code = 21204-7) NEGATIVE NEGATIVE [facility] HospitalUrine Lqtcasshxafi3352-28-60 00:19:00* Test Item Value Reference Range Interpretation Comments Urine Urobilinogen (test code = 65862-7) 0.2 0.2-[address] [facility] HospitalUrine Serjugpqm0583-67-41 00:19:00* Test Item Value Reference Range Interpretation Comments Urine Bilirubin (test code = 1978-6) NEGATIVE NEGATIVE [facility] HospitalUrine Wbwec4669-99-68 00:19:00* Test Item Value Reference Range Interpretation Comments Urine Blood (test code = 11570-5) 1+ NEGATIVE H [facility] HospitalWhite Blood Yemhp0157-59-24 00:19:00* Test Item Value Reference Range Interpretation Comments White Blood Count (test code = 6690-2) 6.20 4.8-10.[address] [facility] HospitalRed Blood Tytai3915-59-72 00:19:00* Test Item Value Reference Range Interpretation Comments Red Blood Count (test code = 789-8) 4.11 3.6-5.[address] HospitalHemoglobin2018-03-22 00:19:00* Test Item Value Reference Range Interpretation Comments Hemoglobin (test code = 58120-0) 10.7 12.0-16.[address] HospitalHematocrit2018-03-22 00:19:00* Test Item Value Reference Range Interpretation Comments Hematocrit (test code = 4544-3) 35.7 34.2-44.[address] HospitalMean Corpuscular Upunmi1804-00-81 00:19:00* Test Item Value Reference Range Interpretation Comments Mean Corpuscular Volume (test code = 787-2) 86.9 81-[address] [facility] HospitalMean Corpuscular Sxpiofnhsk1764-82-75 00:19:00* Test Item Value Reference Range Interpretation Comments Mean Corpuscular Hemoglobin (test code = 785-6) 26.0 28-[address] [facility] HospitalMean Corpuscular Hemoglobin Concent 2017-10-12 00:19:00* Test Item Value Reference Range Interpretation Comments Mean Corpuscular Hemoglobin Concent (test code = 786-4) 30.0 31-[address] [facility] HospitalRed Cell Distribution Xhmud3733-71-34 00:19:00* Test Item Value Reference Range Interpretation Comments Red Cell Distribution Width (test code = 85806-3) 15.1 11.7 -14.[address] [facility] HospitalPlatelet Eswyd9097-35-54 00:19:00* Test Item Value Reference Range Interpretation Comments Platelet Count (test code = 777-3) 186 140-[address] [facility] HospitalNeutrophils (%) (Auto)2017-10-12 00:19:00 * Test Item Value Reference Range Interpretation Comments Neutrophils (%) (Auto) (test code = 38281-7) 65.3 38.7-80.[address] HospitalLymphocytes (%) (Auto)2017-10-12 00:19:00 * Test Item Value Reference Range Interpretation Comments Lymphocytes (%) (Auto) (test code = 736-9) 24.5 18.0-39.[address] HospitalMonocytes (%) (Auto)2017-10-12 00:19:00* Test Item Value Reference Range Interpretation Comments Monocytes (%) (Auto) (test code = 5905-5) 5.5 4.4-11.[address] HospitalEosinophils (%) (Auto)2017-10-12 00:19:00 * Test Item Value Reference Range Interpretation Comments Eosinophils (%) (Auto) (test code = 713-8) 2.7 0.0-6.[address] HospitalBasophils (%) (Auto)2017-10-12 00:19:00* Test Item Value Reference Range Interpretation Comments Basophils (%) (Auto) (test code = 706-2) 1.0 0.0-1.[address] HospitalIM GRANULOCYTES %2017-10-12 00:19:00* Test Item Value Reference Range Interpretation Comments IM GRANULOCYTES % (test code = IM GRANULOCYTES %) 1.0 0.0- 1.[address] [facility] HospitalNeutrophils # (Auto)2017-10-12 00:19:00* Test Item Value Reference Range Interpretation Comments Neutrophils # (Auto) (test code = 751-8) 4.1 2.1-6.[address] HospitalLymphocytes # (Auto)2017-10-12 00:19:00* Test Item Value Reference Range Interpretation Comments Lymphocytes # (Auto) (test code = 56436-4) 1.5 1.0-3.[address] [facility] HospitalMonocytes # (Auto)2017-10-12 00:19:00* Test Item Value Reference Range Interpretation Comments Monocytes # (Auto) (test code = 742-7) 0.3 0.2-0.[address] HospitalEosinophils # (Auto)2017-10-12 00:19:00* Test Item Value Reference Range Interpretation Comments Eosinophils # (Auto) (test code = 711-2) 0.2 0.0-0.[address] HospitalBasophils # (Auto)2017-10-12 00:19:00* Test Item Value Reference Range Interpretation Comments Basophils # (Auto) (test code = 704-7) 0.1 0.0-0.[address] [facility] HospitalAbsolute Immature Granulocyte (auto 2017-10-12 00:19:00* Test Item Value Reference Range Interpretation Comments Absolute Immature Granulocyte (auto (joseph t code = Absolute Immature Granulocyte (auto) 0.06 0-0.[address] [facility] HospitalUrine Cfqza3685-52-81 00:19:00* Test Item Value Reference Range Interpretation Comments Urine Color (test code = 5778-6) YELLOW YELLOW [facility] HospitalUrine Nwbnjcx2752-02-09 00:19:00* Test Item Value Reference Range Interpretation Comments Urine Clarity (test code = 29514-7) CLEAR CLEAR [facility] HospitalUrine Specific Bxptzbq0985-50-44 00:19:00 * Test Item Value Reference Range Interpretation Comments Urine Specific [place] (test code = 5811-5) 1.020 1.010-1.[address] [facility] HospitalUrine oS0518-95-04 00:19:00* Test Item Value Reference Range Interpretation Comments Urine pH (test code = 80715-9) 5 5-[address] [facility] HospitalUrine Leukocyte Hprymunf6999-45-25 00:19:00* Test Item Value Reference Range Interpretation Comments Urine Leukocyte Esterase (test code = 5799-2) NEGATIVE NEGATIVE [facility] Ekvsjmi4251-12-13 00:19:00* Test Item Value Reference Range Interpretation Comments Urine Nitrite (test code = 14011-5) NEGATIVE NEGATIVE [facility] Pdtcjra3929-24-71 00:19:00* Test Item Value Reference Range Interpretation Comments Urine Protein (test code = 5804-0) NEGATIVE NEGATIVE [facility] Glucose (UA)2017-10-12 00:19:00* Test Item Value Reference Range Interpretation Comments Urine Glucose (UA) (test code = 2349-9) 3+ NEGATIVE H [facility] Vdsvixy7875-32-13 00:19:00* Test Item Value Reference Range Interpretation Comments Urine Ketones (test code = 36457-8) NEGATIVE NEGATIVE [facility] Tvcyyyskstvd2179-39-23 00:19:00* Test Item Value Reference Range Interpretation Comments Urine Urobilinogen (test code = 69692-7) 0.2 0.2-[address] HospitalUrine Nktlmoihi9746-74-31 00:19:00* Test Item Value Reference Range Interpretation Comments Urine Bilirubin (test code = 1978-6) NEGATIVE NEGATIVE [facility] Ddeko7714-81-94 00:19:00* Test Item Value Reference Range Interpretation Comments Urine Blood (test code = 10487-8) 1+ NEGATIVE H [facility] HospitalWhite Blood Zxbgy3906-51-79 00:19:00* Test Item Value Reference Range Interpretation Comments White Blood Count (test code = 6690-2) 6.20 4.8-10.[address] [facility] HospitalRed Blood Iqruy3341-83-79 00:19:00* Test Item Value Reference Range Interpretation Comments Red Blood Count (test code = 789-8) 4.11 3.6-5.[address] [facility] HospitalHemoglobin2018-03-22 00:19:00* Test Item Value Reference Range Interpretation Comments Hemoglobin (test code = 07694-9) 10.7 12.0-16.[address] HospitalHematocrit2018-03-22 00:19:00* Test Item Value Reference Range Interpretation Comments Hematocrit (test code = 4544-3) 35.7 34.2-44.[address] [facility] [facility] HospitalMean Corpuscular Ujmnrq4354-60-97 00:19:00* Test Item Value Reference Range Interpretation Comments Mean Corpuscular Volume (test code = 787-2) 86.9 81-[address] [facility] HospitalMean Corpuscular Uwvvisiufr2504-48-43 00:19:00* Test Item Value Reference Range Interpretation Comments Mean Corpuscular Hemoglobin (test code = 785-6) 26.0 28-[address] HospitalMean Corpuscular Hemoglobin Concent 2017-10-12 00:19:00* Test Item Value Reference Range Interpretation Comments Mean Corpuscular Hemoglobin Concent (test code = 786-4) 30.0 31-[address] [facility] HospitalRed Cell Distribution Gxvws2976-16-29 00:19:00* Test Item Value Reference Range Interpretation Comments Red Cell Distribution Width (test code = 17654-5) 15.1 11.7 -14.[address] [facility] HospitalPlatelet Vuyyy7040-17-51 00:19:00* Test Item Value Reference Range Interpretation Comments Platelet Count (test code = 777-3) 186 140-[address] [facility] HospitalNeutrophils (%) (Auto)2017-10-12 00:19:00 * Test Item Value Reference Range Interpretation Comments Neutrophils (%) (Auto) (test code = 39026-8) 65.3 38.7-80.[address] HospitalLymphocytes (%) (Auto)2017-10-12 00:19:00 * Test Item Value Reference Range Interpretation Comments Lymphocytes (%) (Auto) (test code = 736-9) 24.5 18.0-39.[address] HospitalMonocytes (%) (Auto)2017-10-12 00:19:00* Test Item Value Reference Range Interpretation Comments Monocytes (%) (Auto) (test code = 5905-5) 5.5 4.4-11.[address] [facility] HospitalEosinophils (%) (Auto)2017-10-12 00:19:00 * Test Item Value Reference Range Interpretation Comments Eosinophils (%) (Auto) (test code = 713-8) 2.7 0.0-6.[address] HospitalBasophils (%) (Auto)2017-10-12 00:19:00* Test Item Value Reference Range Interpretation Comments Basophils (%) (Auto) (test code = 706-2) 1.0 0.0-1.[address] HospitalIM GRANULOCYTES %2017-10-12 00:19:00* Test Item Value Reference Range Interpretation Comments IM GRANULOCYTES % (test code = IM GRANULOCYTES %) 1.0 0.0- 1.[address] [facility] HospitalNeutrophils # (Auto)2017-10-12 00:19:00* Test Item Value Reference Range Interpretation Comments Neutrophils # (Auto) (test code = 751-8) 4.1 2.1-6.[address] HospitalLymphocytes # (Auto)2017-10-12 00:19:00* Test Item Value Reference Range Interpretation Comments Lymphocytes # (Auto) (test code = 26890-1) 1.5 1.0-3.[address] [facility] HospitalMonocytes # (Auto)2017-10-12 00:19:00* Test Item Value Reference Range Interpretation Comments Monocytes # (Auto) (test code = 742-7) 0.3 0.2-0.[address] HospitalEosinophils # (Auto)2017-10-12 00:19:00* Test Item Value Reference Range Interpretation Comments Eosinophils # (Auto) (test code = 711-2) 0.2 0.0-0.[address] [facility] HospitalBasophils # (Auto)2017-10-12 00:19:00* Test Item Value Reference Range Interpretation Comments Basophils # (Auto) (test code = 704-7) 0.1 0.0-0.[address] [facility] HospitalAbsolute Immature Granulocyte (auto 2017-10-12 00:19:00* Test Item Value Reference Range Interpretation Comments Absolute Immature Granulocyte (auto (joseph t code = Absolute Immature Granulocyte (auto) 0.06 0-0.[address] [facility] HospitalUrine Rosyd8003-11-57 00:19:00* Test Item Value Reference Range Interpretation Comments Urine Color (test code = 5778-6) YELLOW YELLOW [facility] HospitalUrine Nhojjdf3085-17-90 00:19:00* Test Item Value Reference Range Interpretation Comments Urine Clarity (test code = 58944-4) CLEAR CLEAR [facility] HospitalUrine Specific Qtgtpth9194-08-33 00:19:00 * Test Item Value Reference Range Interpretation Comments Urine Specific [place] (test code = 5811-5) 1.020 1.010-1.[address] HospitalUrine bE4867-60-87 00:19:00* Test Item Value Reference Range Interpretation Comments Urine pH (test code = 58258-0) 5 5-[address] HospitalUrine Leukocyte Sxeohnsj5618-98-24 00:19:00* Test Item Value Reference Range Interpretation Comments Urine Leukocyte Esterase (test code = 5799-2) NEGATIVE NEGATIVE [facility] HospitalUrine Frjtiww0020-05-28 00:19:00* Test Item Value Reference Range Interpretation Comments Urine Nitrite (test code = 10007-1) NEGATIVE NEGATIVE [facility] HospitalUrine Njfrjdw7190-03-86 00:19:00* Test Item Value Reference Range Interpretation Comments Urine Protein (test code = 5804-0) NEGATIVE NEGATIVE [facility] HospitalUrine Glucose (UA)2017-10-12 00:19:00* Test Item Value Reference Range Interpretation Comments Urine Glucose (UA) (test code = 2349-9) 3+ NEGATIVE H [facility] HospitalUrine Urxhzvf4402-83-82 00:19:00* Test Item Value Reference Range Interpretation Comments Urine Ketones (test code = 78352-4) NEGATIVE NEGATIVE [facility] HospitalUrine Gzvkvoljxnla9853-64-47 00:19:00* Test Item Value Reference Range Interpretation Comments Urine Urobilinogen (test code = 17123-3) 0.2 0.2-[address] HospitalUrine Eevrjglfk4477-94-99 00:19:00* Test Item Value Reference Range Interpretation Comments Urine Bilirubin (test code = 1978-6) NEGATIVE NEGATIVE [facility] HospitalUrine Vagxh2485-86-32 00:19:00* Test Item Value Reference Range Interpretation Comments Urine Blood (test code = 24661-1) 1+ NEGATIVE H [facility] Lvjmqll6616-24-90 11:00:00* Test Item Value Reference Range Interpretation Comments Blood Culture (test code = 12382804) NO GROWTH AFTER 5 DAYS, FINAL REPORT [facility] Lntkwxc2143-68-28 11:00:00* Test Item Value Reference Range Interpretation Comments Blood Culture (test code = 15076358) NO GROWTH AFTER 5 DAYS, FINAL REPORT [facility] Orejwsu9206-62-59 12:28:00* Test Item Value Reference Range Interpretation Comments Bedside Glucose (test code = 49184-0) 113 70-120 Meter ID: [id number]. [facility] Glucose 2017-09-29 12:28:00* Test Item Value Reference Range Interpretation Comments Bedside Glucose (test code = 30866-7) 113 70-120 Meter ID: [id number]. [facility] Glucose 2017-09-29 12:28:00* Test Item Value Reference Range Interpretation Comments Bedside Glucose (test code = 70113-4) 113 70-120 Meter ID: [id number]. [facility] Glucose 2017-09-29 12:28:00* Test Item Value Reference Range Interpretation Comments Bedside Glucose (test code = 56379-5) 113 70-120 Meter ID: [id number] St. [facility] HospitalBedside Glucose 2017-09-29 12:28:00* Test Item Value Reference Range Interpretation Comments Bedside Glucose (test code = 24078-7) 113 70-120 Meter ID: [id number] [facility] Centerodium Level 2017-09-29 08:38:00* Test Item Value Reference Range Interpretation Comments Sodium Level (test code = 2951-2) 138 136-[address] [facility] HospitalPotassium Xwqte5704-23-28 08:38:00* Test Item Value Reference Range Interpretation Comments Potassium Level (test code = 2823-3) 3.7 3.5-5.[address] [facility] HospitalChloride Dffod1797-75-85 08:38:00* Test Item Value Reference Range Interpretation Comments Chloride Level (test code = 2075-0) 94 98-[address] [facility] HospitalCarbon Dioxide Kuuxk3760-47-12 08:38:00* Test Item Value Reference Range Interpretation Comments Carbon Dioxide Level (test code = 2028-9) 29 22-[address] [facility] HospitalAnion Dhk2584-00-70 08:38:00* Test Item Value Reference Range Interpretation Comments Anion Gap (test code = 32701-5) 18.7 8-[address] [facility] HospitalBlood Urea Ysicjhpw9687-54-73 08:38:00* Test Item Value Reference Range Interpretation Comments Blood Urea Nitrogen (test code = 3094-0) 25 7-[address] [facility] [facility] HospitalCreatinine2018 08:38:00* Test Item Value Reference Range Interpretation Comments Creatinine (test code = 2160-0) 1.00 0.57-1.[address] [facility] HospitalBUN/Creatinine Twkvd8057-39-43 08:38:00* Test Item Value Reference Range Interpretation Comments BUN/Creatinine Ratio (test code = 3097-3) 25 6-[address] [facility] HospitalEstimat Glomerular Filtration Rate 2017-09-29 08:38:00* Test Item Value Reference Range Interpretation Comments Estimat Glomerular Filtration Rate (test code = 51883-1) 56 >60 L Ranges were taken from the National Kidney Disease Education Program and the [facility] Kidney Foundation literature.Reference ranges:60 or greater: Pgcypw95-59 ( for 3 consecutive months): Chronic kidney disease 15 or less: Kidney failureCHI St[facility] HospitalGlucose Cctrt3675-78-89 08:38:00* Test Item Value Reference Range Interpretation Comments Glucose Level (test code = MKK6206) 290 74-[address] [facility] HospitalCalcium Aeiix2284-17-47 08:38:00* Test Item Value Reference Range Interpretation Comments Calcium Level (test code = 08553-2) 9.4 8.4-10.2 [facility] Centerodium Vlbpx6548-03-72 08:38:00* Test Item Value Reference Range Interpretation Comments Sodium Level (test code = 2951-2) 138 136-[address] [facility] HospitalPotassium Ntuet3184-16-03 08:38:00* Test Item Value Reference Range Interpretation Comments Potassium Level (test code = 2823-3) 3.7 3.5-5.[address] HospitalChloride Pudun6844-72-59 08:38:00* Test Item Value Reference Range Interpretation Comments Chloride Level (test code = 2075-0) 94 98-[address] [facility] HospitalCarbon Dioxide Abcuk7095-46-86 08:38:00* Test Item Value Reference Range Interpretation Comments Carbon Dioxide Level (test code = 2028-9) 29 22-[address] [facility] HospitalAnion Oik2496-23-71 08:38:00* Test Item Value Reference Range Interpretation Comments Anion Gap (test code = 92152-7) 18.7 8-[address] [facility] HospitalBlood Urea Bpyudrwb1307-10-50 08:38:00* Test Item Value Reference Range Interpretation Comments Blood Urea Nitrogen (test code = 3094-0) 25 7-[address] [facility] HospitalCreatinine2018 08:38:00* Test Item Value Reference Range Interpretation Comments Creatinine (test code = 2160-0) 1.00 0.57-1.[address] [facility] HospitalBUN/Creatinine Xgrkb9459-34-01 08:38:00* Test Item Value Reference Range Interpretation Comments BUN/Creatinine Ratio (test code = 3097-3) 25 6-[address] [facility] [facility] HospitalEstimat Glomerular Filtration Rate 2017-09-29 08:38:00* Test Item Value Reference Range Interpretation Comments Estimat Glomerular Filtration Rate (test code = 32570-4) 56 >60 L Ranges were taken from the National Kidney Disease Education Program and the [facility] Kidney Foundation literature.Reference ranges:60 or greater: [id number] ( for 3 consecutive months): Chronic kidney disease 15 or less: Kidney failureCH[facility] HospitalGlucose Ewngj3935-71-44 08:38:00* Test Item Value Reference Range Interpretation Comments Glucose Level (test code = CIE6127) 290 74-[address] [facility] HospitalCalcium Yfyom6927-85-78 08:38:00* Test Item Value Reference Range Interpretation Comments Calcium Level (test code = 28303-2) 9.4 8.4-10.[address] [facility] HospitalArterial Blood xG8471-54-81 13:49:00* Test Item Value Reference Range Interpretation Comments Arterial Blood pH (test code = 2744-1) 7.46 7.31-7.41 H WAS CALLED TO RUN A BLOOD GAS FOR A PT ON ROOM AIR LAYING ON THE TURKEY CLEANER TABLE [facility] HospitalArterial Blood Partial Pressure CO2 2017-09-28 13:49:00* Test Item Value Reference Range Interpretation Comments Arterial Blood Partial Pressure CO2 (test code = 2018-) 46 41-51 [facility] Partial Pressure O2 2017-09-28 13:49:00* Test Item Value Reference Range Interpretation Comments Arterial Blood Partial Pressure O2 (test code = 2018-) 30 80-105 LL Results called/hand delivered to DR CLINTON LLAMAS at 1328 on 09/28/17 by Mckayla reyna. RB OK.[facility] HCO3 2017-09-28 13:49:00* Test Item Value Reference Range Interpretation Comments Arterial Blood HCO3 (test code = 1960-4) 33 23-[address] [facility] HospitalAr[facility] Blood Base [id number] 13:49:00* Test Item Value Reference Range Interpretation Comments Arterial Blood Base Excess (test code = 1925-7) 9.0 -2-[address] [facility] HospitalAr[facility] Blood Oxygen Saturation 2017-09-28 13:49:00* Test Item Value Reference Range Interpretation Comments Arterial Blood Oxygen Saturation (test code = 2708-6) 60.0 95-[address] [facility] [id number] 13:49:00* Test Item Value Reference Range Interpretation Comments Arterial Blood pH (test code = 2744-1) 7.46 7.31-7.41 H WAS CALLED TO RUN A BLOOD GAS FOR A PT ON ROOM AIR LAYING ON THE TURKEY CLEANER TABLE [facility] Partial Pressure CO2 2017-09-28 13:49:00* Test Item Value Reference Range Interpretation Comments Arterial Blood Partial Pressure CO2 (test code = 2018-8) 46 41-[address] [facility] Partial Pressure O2 2017-09-28 13:49:00* Test Item Value Reference Range Interpretation Comments Arterial Blood Partial Pressure O2 (test code = 2018-8) 30 80-105 LL Results called/hand delivered to DR CLINTON LLAMAS at 1328 on 09/28/17 by Mckayla reyna. RB OK.[facility] HCO3 2017-09-28 13:49:00* Test Item Value Reference Range Interpretation Comments Arterial Blood HCO3 (test code = 1960-4) 33 23-[address] [facility] Base [id number] 13:49:00* Test Item Value Reference Range Interpretation Comments Arterial Blood Base Excess (test code = 1925-7) 9.0 -2-[address] [facility] Hospital[facility] Blood Oxygen Saturation 2017-09-28 13:49:00* Test Item Value Reference Range Interpretation Comments Arterial Blood Oxygen Saturation (test code = 2708-6) 60.0 95-[address] [facility] Blood [id number] 13:49:00* Test Item Value Reference Range Interpretation Comments Arterial Blood pH (test code = 2744-1) 7.46 7.31-7.41 H WAS CALLED TO RUN A BLOOD GAS FOR A PT ON ROOM AIR LAYING ON THE TURKEY CLEANER TABLE [facility] Partial Pressure CO2 2017-09-28 13:49:00* Test Item Value Reference Range Interpretation Comments Arterial Blood Partial Pressure CO2 (test code = 2019-02) 46 41-[address] [facility] Partial Pressure O2 2017-09-28 13:49:00* Test Item Value Reference Range Interpretation Comments Arterial Blood Partial Pressure O2 (test code = 2019-02) 30 80-105 LL Results called/hand delivered to DR CLINTON LLAMAS at 1328 on 09/28/17 by Mckayla reyna. RB OK.[facility] HCO3 2017-09-28 13:49:00* Test Item Value Reference Range Interpretation Comments Arterial Blood HCO3 (test code = 1960-4) 33 23-[address] [facility] Hospital[facility] Blood Base [id number] 13:49:00* Test Item Value Reference Range Interpretation Comments Arterial Blood Base Excess (test code = 1925-7) 9.0 -2-[address] [facility] HospitalAr[facility] Blood Oxygen Saturation 2017-09-28 13:49:00* Test Item Value Reference Range Interpretation Comments Arterial Blood Oxygen Saturation (test code = 2708-6) 60.0 95-[address] [facility] Blood [id number] 13:49:00* Test Item Value Reference Range Interpretation Comments Arterial Blood pH (test code = 2744-1) 7.46 7.31-7.41 H WAS CALLED TO RUN A BLOOD GAS FOR A PT ON ROOM AIR LAYING ON THE TURKEY CLEANER TABLE [facility] Partial Pressure CO2 2017-09-28 13:49:00* Test Item Value Reference Range Interpretation Comments Arterial Blood Partial Pressure CO2 (test code = 2019-02) 46 41-[address] [facility] Partial Pressure O2 2017-09-28 13:49:00* Test Item Value Reference Range Interpretation Comments Arterial Blood Partial Pressure O2 (test code = 2019-02) 30 80-105 LL Results called/hand delivered to DR CLINTON LLAMAS at 1328 on 09/28/17 by Mckayla reyna. RB OK.[facility] HCO3 2017-09-28 13:49:00* Test Item Value Reference Range Interpretation Comments Arterial Blood HCO3 (test code = 1960-4) 33 23-[address] [facility] Hospital[facility] Base [id number] 13:49:00* Test Item Value Reference Range Interpretation Comments Arterial Blood Base Excess (test code = 1925-7) 9.0 -2-[address] [facility] [facility] Oxygen Saturation 2017-09-28 13:49:00* Test Item Value Reference Range Interpretation Comments Arterial Blood Oxygen Saturation (test code = 2708-6) 60.0 95-98 L [facility] Blood [id number] 13:49:00* Test Item Value Reference Range Interpretation Comments Arterial Blood pH (test code = 2744-1) 7.46 7.31-7.41 H WAS CALLED TO RUN A BLOOD GAS FOR A PT ON ROOM AIR LAYING ON THE TUR[employer] CLEANER TABLE [facility] Partial Pressure CO2 2017-09-28 13:49:00* Test Item Value Reference Range Interpretation Comments Arterial Blood Partial Pressure CO2 (test code = 2018-8) 46 41-[address] [facility] Partial Pressure O2 2017-09-28 13:49:00* Test Item Value Reference Range Interpretation Comments Arterial Blood Partial Pressure O2 (test code = 2018-8) 30 80-105 LL Results called/hand delivered to DR CLINTON LLAMAS at 1328 on 09/28/17 by Mckayla reyna. RB OK.[facility] HCO3 2017-09-28 13:49:00* Test Item Value Reference Range Interpretation Comments Arterial Blood HCO3 (test code = 1960-4) 33 23-[address] [facility] HospitalAr[facility] Blood Base [id number] 13:49:00* Test Item Value Reference Range Interpretation Comments Arterial Blood Base Excess (test code = 1925-7) 9.0 -2-[address] [facility] [facility]Ar[facility] Blood Oxygen Saturation 2017-09-28 13:49:00* Test Item Value Reference Range Interpretation Comments Arterial Blood Oxygen Saturation (test code = 2708-6) 60.0 95-98 L [facility] Blood [id number] 13:49:00* Test Item Value Reference Range Interpretation Comments Arterial Blood pH (test code = 2744-1) 7.46 7.31-7.41 H WAS CALLED TO RUN A BLOOD GAS FOR A PT ON ROOM AIR LAYING ON THE TUR[employer] CLEANER TABLE [facility] Partial Pressure CO2 2017-09-28 13:49:00* Test Item Value Reference Range Interpretation Comments Arterial Blood Partial Pressure CO2 (test code = 2019-02) 46 41-[address] [facility] Partial Pressure O2 2017-09-28 13:49:00* Test Item Value Reference Range Interpretation Comments Arterial Blood Partial Pressure O2 (test code = 2019-02) 30 80-105 LL Results called/hand delivered to DR CLINTON LLAMAS at 1328 on 09/28/17 by Mckayla reyna. RB OK.[facility] HCO3 2017-09-28 13:49:00* Test Item Value Reference Range Interpretation Comments Arterial Blood HCO3 (test code = 1960-4) 33 23-28 [facility] [id number] 13:49:00* Test Item Value Reference Range Interpretation Comments Arterial Blood Base Excess (test code = 1925-7) 9.0 -2-[address] [facility] [facility] Blood Oxygen Saturation 2017-09-28 13:49:00* Test Item Value Reference Range Interpretation Comments Arterial Blood Oxygen Saturation (test code = 2708-6) 60.0 95-[address] [facility]Ar[facility] Blood [id number] 13:49:00* Test Item Value Reference Range Interpretation Comments Arterial Blood pH (test code = 2744-1) 7.46 7.31-7.41 H WAS CALLED TO RUN A BLOOD GAS FOR A PT ON ROOM AIR LAYING ON THE TUR[employer] CLEANER TABLE [facility] Partial Pressure CO2 2017-09-28 13:49:00* Test Item Value Reference Range Interpretation Comments Arterial Blood Partial Pressure CO2 (test code = 2019-8) 46 41-[address] [facility] Partial Pressure O2 2017-09-28 13:49:00* Test Item Value Reference Range Interpretation Comments Arterial Blood Partial Pressure O2 (test code = 2018-) 30 80-105 LL Results called/hand delivered to DR CLINTON LLAMAS at 1328 on 09/28/17 by Mckayla reyna. RB OK.[facility] HCO3 2017-09-28 13:49:00* Test Item Value Reference Range Interpretation Comments Arterial Blood HCO3 (test code = 1960-4) 33 23-[address] [facility] Base [id number] 13:49:00* Test Item Value Reference Range Interpretation Comments Arterial Blood Base Excess (test code = 1925-7) 9.0 -2-[address] [facility] [facility] Oxygen Saturation 2017-09-28 13:49:00* Test Item Value Reference Range Interpretation Comments Arterial Blood Oxygen Saturation (test code = 2708-6) 60.0 95-[address] [facility] Blood [id number] 13:49:00* Test Item Value Reference Range Interpretation Comments Arterial Blood pH (test code = 2744-1) 7.46 7.31-7.41 H WAS CALLED TO RUN A BLOOD GAS FOR A PT ON ROOM AIR LAYING ON THE TURKEY CLEANER TABLE [facility] Partial Pressure CO2 2017-09-28 13:49:00* Test Item Value Reference Range Interpretation Comments Arterial Blood Partial Pressure CO2 (test code = 2018-8) 46 41-[address] [facility] Blood Partial Pressure O2 2017-09-28 13:49:00* Test Item Value Reference Range Interpretation Comments Arterial Blood Partial Pressure O2 (test code = 2019-02) 30 80-105 LL Results called/hand delivered to DR CLINTON LLAMAS at 1328 on 09/28/17 by Mckayla reyna. RB OK.[facility] HCO3 2017-09-28 13:49:00* Test Item Value Reference Range Interpretation Comments Arterial Blood HCO3 (test code = 1960-4) 33 23-[address] [facility] Base [id number] 13:49:00* Test Item Value Reference Range Interpretation Comments Arterial Blood Base Excess (test code = 1925-7) 9.0 -2-[address] [facility] Blood Oxygen Saturation 2017-09-28 13:49:00* Test Item Value Reference Range Interpretation Comments Arterial Blood Oxygen Saturation (test code = 2708-6) 60.0 95-[address] [facility] Blood [id number] 13:49:00* Test Item Value Reference Range Interpretation Comments Arterial Blood pH (test code = 2744-1) 7.46 7.31-7.41 H WAS CALLED TO RUN A BLOOD GAS FOR A PT ON ROOM AIR LAYING ON THE TURKEY CLEANER TABLE [facility] Partial Pressure CO2 2017-09-28 13:49:00* Test Item Value Reference Range Interpretation Comments Arterial Blood Partial Pressure CO2 (test code = 2018-8) 46 41-[address] [facility] Partial Pressure O2 2017-09-28 13:49:00* Test Item Value Reference Range Interpretation Comments Arterial Blood Partial Pressure O2 (test code = 2018-8) 30 80-105 LL Results called/hand delivered to DR CLINTON LLAMAS at 1328 on 09/28/17 by Mckayla reyna. RB OK.[facility] HCO3 2017-09-28 13:49:00* Test Item Value Reference Range Interpretation Comments Arterial Blood HCO3 (test code = 1960-4) 33 23-[address] [facility] Base [id number] 13:49:00* Test Item Value Reference Range Interpretation Comments Arterial Blood Base Excess (test code = 1925-7) 9.0 -2-[address] [facility] [facility] Blood Oxygen Saturation 2017-09-28 13:49:00* Test Item Value Reference Range Interpretation Comments Arterial Blood Oxygen Saturation (test code = 2708-6) 60.0 95-98 L [facility] Blood [id number] 13:49:00* Test Item Value Reference Range Interpretation Comments Arterial Blood pH (test code = 2744-1) 7.46 7.31-7.41 H WAS CALLED TO RUN A BLOOD GAS FOR A PT ON ROOM AIR LAYING ON THE TURKEY CLEANER TABLE [facility] Partial Pressure CO2 2017-09-28 13:49:00* Test Item Value Reference Range Interpretation Comments Arterial Blood Partial Pressure CO2 (test code = 2019-02) 46 41-[address] [facility] [facility] Partial Pressure O2 2017-09-28 13:49:00* Test Item Value Reference Range Interpretation Comments Arterial Blood Partial Pressure O2 (test code = 2019-02) 30 80-105 LL Results called/hand delivered to DR CLINTON LLAMAS at 1328 on 09/28/17 by Mckayla reyna. RB OK.[facility] HCO3 2017-09-28 13:49:00* Test Item Value Reference Range Interpretation Comments Arterial Blood HCO3 (test code = 1960-4) 33 23-[address] [facility]Ar[facility] Blood Base [id number] 13:49:00* Test Item Value Reference Range Interpretation Comments Arterial Blood Base Excess (test code = 1925-7) 9.0 -2-[address] [facility]Ar[facility] Blood Oxygen Saturation 2017-09-28 13:49:00* Test Item Value Reference Range Interpretation Comments Arterial Blood Oxygen Saturation (test code = 2708-6) 60.0 95-[address] [facility] Blood [id number] 13:49:00* Test Item Value Reference Range Interpretation Comments Arterial Blood pH (test code = 2744-1) 7.46 7.31-7.41 H WAS CALLED TO RUN A BLOOD GAS FOR A PT ON ROOM AIR LAYING ON THE TURKEY CLEANER TABLE [facility] Partial Pressure CO2 2017-09-28 13:49:00* Test Item Value Reference Range Interpretation Comments Arterial Blood Partial Pressure CO2 (test code = 2019-02) 46 41-[address] [facility] Blood Partial Pressure O2 2017-09-28 13:49:00* Test Item Value Reference Range Interpretation Comments Arterial Blood Partial Pressure O2 (test code = 2019-02) 30 80-105 LL Results called/hand delivered to DR CLINTON LLAMAS at 1328 on 09/28/17 by Mckayla reyna. RB OK.[facility] HCO3 2017-09-28 13:49:00* Test Item Value Reference Range Interpretation Comments Arterial Blood HCO3 (test code = 1960-4) 33 23-[address] [facility]Ar[facility] Blood Base [id number] 13:49:00* Test Item Value Reference Range Interpretation Comments Arterial Blood Base Excess (test code = 1925-7) 9.0 -2-[address] [facility] Blood Oxygen Saturation 2017-09-28 13:49:00* Test Item Value Reference Range Interpretation Comments Arterial Blood Oxygen Saturation (test code = 2708-6) 60.0 95-[address] [facility] HospitalBlood [id number] 11:00:00* Test Item Value Reference Range Interpretation Comments Blood Culture (test code = 83843488) NO GROWTH AFTER [address] [address] HospitalCreatine Kinase [id number] 07:21:00* Test Item Value Reference Range Interpretation Comments Creatine Kinase MB (test code = 96736-4) 1.40 0-5.[address] [facility] HospitalTroponin [id number] 07:21:00* Test Item Value Reference Range Interpretation Comments Troponin I (test code = CIY0369) -0.001 0-0.[address] [facility] HospitalCreatine Kinase [id number] 07:21:00* Test Item Value Reference Range Interpretation Comments Creatine Kinase MB (test code = 10354-0) 1.40 0-5.[address] [facility] HospitalTroponin [id number] 07:21:00* Test Item Value Reference Range Interpretation Comments Troponin I (test code = DEL6361) -0.001 0-0.[address] [facility] HospitalCreatine [id number] 07:19:00* Test Item Value Reference Range Interpretation Comments Creatine Kinase (test code = 2157-6) 67 29-[address] [address] HospitalCreatine [id number] 07:19:00* Test Item Value Reference Range Interpretation Comments Creatine Kinase (test code = 2157-6) 67 29-[address] HospitalWhite Blood [id number] 07:00:00* Test Item Value Reference Range Interpretation Comments White Blood Count (test code = 6690-2) 8.36 4.8-10.[address] [facility] HospitalRed Blood [id number] 07:00:00* Test Item Value Reference Range Interpretation Comments Red Blood Count (test code = 789-8) 4.13 3.6-5.[address] [facility] HospitalHemoglobin2018-03-06 07:00:00* Test Item Value Reference Range Interpretation Comments Hemoglobin (test code = 97753-9) 10.9 12.0-16.[address] [facility] HospitalHematocrit2018-03-06 07:00:00* Test Item Value Reference Range Interpretation Comments Hematocrit (test code = 4544-3) 35.0 34.2-44.[address] [facility] HospitalMean Corpuscular [id number] 07:00:00* Test Item Value Reference Range Interpretation Comments Mean Corpuscular Volume (test code = 787-2) 84.7 81-[address] [facility] HospitalMean Corpuscular [id number] 07:00:00* Test Item Value Reference Range Interpretation Comments Mean Corpuscular Hemoglobin (test code = 785-6) 26.4 28-[address] [facility] HospitalMean Corpuscular Hemoglobin Concent 2017-09-26 07:00:00* Test Item Value Reference Range Interpretation Comments Mean Corpuscular Hemoglobin Concent (test code = 786-4) 31.1 31-[address] [facility] HospitalRed Cell Distribution [id number] 07:00:00* Test Item Value Reference Range Interpretation Comments Red Cell Distribution Width (test code = 99614-1) 15.1 11.7 -14.[address] [facility] HospitalPlatelet [id number] 07:00:00* Test Item Value Reference Range Interpretation Comments Platelet Count (test code = 777-3) [address] [address] [facility] HospitalNeutrophils (%) (Auto)2017-09-26 07:00:00 * Test Item Value Reference Range Interpretation Comments Neutrophils (%) (Auto) (test code = 54048-2) 80.9 38.7-80.[address] [facility] HospitalLymphocytes (%) (Auto)2017-09-26 07:00:00 * Test Item Value Reference Range Interpretation Comments Lymphocytes (%) (Auto) (test code = 736-9) 12.3 18.0-39.[address] HospitalMonocytes (%) (Auto)2017-09-26 07:00:00* Test Item Value Reference Range Interpretation Comments Monocytes (%) (Auto) (test code = 5905-5) 5.1 4.4-11.[address] HospitalEosinophils (%) (Auto)2017-09-26 07:00:00 * Test Item Value Reference Range Interpretation Comments Eosinophils (%) (Auto) (test code = 713-8) 0.0 0.0-6.[address] [facility] HospitalBasophils (%) (Auto)2017-09-26 07:00:00* Test Item Value Reference Range Interpretation Comments Basophils (%) (Auto) (test code = 706-2) 0.4 0.0-1.[address] HospitalIM GRANULOCYTES %2017-09-26 07:00:00* Test Item Value Reference Range Interpretation Comments IM GRANULOCYTES % (test code = IM GRANULOCYTES %) 1.3 0.0- 1.[address] [facility] HospitalNeutrophils # (Auto)2017-09-26 07:00:00* Test Item Value Reference Range Interpretation Comments Neutrophils # (Auto) (test code = 751-8) 6.8 2.1-6.[address] [facility] HospitalLymphocytes # (Auto)2017-09-26 07:00:00* Test Item Value Reference Range Interpretation Comments Lymphocytes # (Auto) (test code = 81451-1) 1.0 1.0-3.[address] [facility] HospitalMonocytes # (Auto)2017-09-26 07:00:00* Test Item Value Reference Range Interpretation Comments Monocytes # (Auto) (test code = 742-7) 0.4 0.2-0.[address] [facility] [facility] HospitalEosinophils # (Auto)2017-09-26 07:00:00* Test Item Value Reference Range Interpretation Comments Eosinophils # (Auto) (test code = 711-2) 0.0 0.0-0.[address] [facility] HospitalBasophils # (Auto)2017-09-26 07:00:00* Test Item Value Reference Range Interpretation Comments Basophils # (Auto) (test code = 704-7) 0.0 0.0-0.[address] HospitalAbsolute Immature Granulocyte (auto 2017-09-26 07:00:00* Test Item Value Reference Range Interpretation Comments Absolute Immature Granulocyte (auto (joseph t code = Absolute Immature Granulocyte (auto) 0.11 0-0.[address] HospitalWhite Blood [id number] 07:00:00* Test Item Value Reference Range Interpretation Comments White Blood Count (test code = 6690-2) 8.36 4.8-10.[address] [facility] HospitalRed Blood [id number] 07:00:00* Test Item Value Reference Range Interpretation Comments Red Blood Count (test code = 789-8) 4.13 3.6-5.[address] HospitalHemoglobin2018-03-06 07:00:00* Test Item Value Reference Range Interpretation Comments Hemoglobin (test code = 74101-6) 10.9 12.0-16.[address] [facility] HospitalHematocrit2018-03-06 07:00:00* Test Item Value Reference Range Interpretation Comments Hematocrit (test code = 4544-3) 35.0 34.2-44.[address] [facility] [facility] HospitalMean Corpuscular [id number] 07:00:00* Test Item Value Reference Range Interpretation Comments Mean Corpuscular Volume (test code = 787-2) 84.7 81-[address] [facility] [facility] HospitalMean Corpuscular Qilztlnqda2232-63-21 07:00:00* Test Item Value Reference Range Interpretation Comments Mean Corpuscular Hemoglobin (test code = 785-6) 26.4 28-[address] [facility] [facility] HospitalMean Corpuscular Hemoglobin Concent 2017-09-26 07:00:00* Test Item Value Reference Range Interpretation Comments Mean Corpuscular Hemoglobin Concent (test code = 786-4) 31.1 31-[address] [facility] [facility] HospitalRed Cell Distribution [id number] 07:00:00* Test Item Value Reference Range Interpretation Comments Red Cell Distribution Width (test code = 73456-0) 15.1 11.7 -14.[address] [facility] HospitalPlatelet [id number] 07:00:00* Test Item Value Reference Range Interpretation Comments Platelet Count (test code = 777-3) 223 140-[address] HospitalNeutrophils (%) (Auto)2017-09-26 07:00:00 * Test Item Value Reference Range Interpretation Comments Neutrophils (%) (Auto) (test code = 82398-3) 80.9 38.7-80.[address] [facility] [facility] HospitalLymphocytes (%) (Auto)2017-09-26 07:00:00 * Test Item Value Reference Range Interpretation Comments Lymphocytes (%) (Auto) (test code = 736-9) 12.3 18.0-39.[address] [facility] HospitalMonocytes (%) (Auto)2017-09-26 07:00:00* Test Item Value Reference Range Interpretation Comments Monocytes (%) (Auto) (test code = 5905-5) 5.1 4.4-11.[address] [facility] HospitalEosinophils (%) (Auto)2017-09-26 07:00:00 * Test Item Value Reference Range Interpretation Comments Eosinophils (%) (Auto) (test code = 713-8) 0.0 0.0-6.[address] [facility] HospitalBasophils (%) (Auto)2017-09-26 07:00:00* Test Item Value Reference Range Interpretation Comments Basophils (%) (Auto) (test code = 706-2) 0.4 0.0-1.[address] [facility] HospitalIM GRANULOCYTES %2017-09-26 07:00:00* Test Item Value Reference Range Interpretation Comments IM GRANULOCYTES % (test code = IM GRANULOCYTES %) 1.3 0.0- 1.[address] [facility] HospitalNeutrophils # (Auto)2017-09-26 07:00:00* Test Item Value Reference Range Interpretation Comments Neutrophils # (Auto) (test code = 751-8) 6.8 2.1-6.[address] HospitalLymphocytes # (Auto)2017-09-26 07:00:00* Test Item Value Reference Range Interpretation Comments Lymphocytes # (Auto) (test code = 34572-8) 1.0 1.0-3.[address] [facility] [facility] HospitalMonocytes # (Auto)2017-09-26 07:00:00* Test Item Value Reference Range Interpretation Comments Monocytes # (Auto) (test code = 742-7) 0.4 0.2-0.[address] [facility] HospitalEosinophils # (Auto)2017-09-26 07:00:00* Test Item Value Reference Range Interpretation Comments Eosinophils # (Auto) (test code = 711-2) 0.0 0.0-0.[address] [facility] HospitalBasophils # (Auto)2017-09-26 07:00:00* Test Item Value Reference Range Interpretation Comments Basophils # (Auto) (test code = 704-7) 0.0 0.0-0.[address] [facility] HospitalAbsolute Immature Granulocyte (auto 2017-09-26 07:00:00* Test Item Value Reference Range Interpretation Comments Absolute Immature Granulocyte (auto (joseph t code = Absolute Immature Granulocyte (auto) 0.11 0-0.[address] [facility] HospitalProthrombin Kzdq2231-80-58 11:58:00* Test Item Value Reference Range Interpretation Comments Prothrombin Time (test code = 5902-2) 13.2 11.9-14.[address] [facility] HospitalProthromb Time International Ratio 2017-09-25 11:58:00* Test Item Value Reference Range Interpretation Comments Prothromb Time International Ratio (test code = 6301-6) 1.08 Oral Anticoagulant Therapy INR Values:1. Low Intensity Therapy 1.5 - 2.02 . Moderate Intensity Therapy 2.0 - 3.03. High Intensity Therapy(1) 2.5 - 3. 54. High Intensity Therapy(2) 3.0 - 4.05. Panic Value INR > 5.[address] [facility] HospitalActivated Partial Thromboplast Time 2017-09-25 11:58:00* Test Item Value Reference Range Interpretation Comments Activated Partial Thromboplast Time (test code = 83648-9) 23.7 23.8-35.[address] [facility] HospitalB-Type Natriuretic Lfozsju5954-95-45 11:58:00* Test Item Value Reference Range Interpretation Comments B-Type Natriuretic Peptide (test code = 73122-9) 77.1 0-[address] [facility] HospitalProthrombin Ucog4171-98-00 11:58:00* Test Item Value Reference Range Interpretation Comments Prothrombin Time (test code = 5902-2) 13.2 11.9-14.[address] [facility] HospitalProthromb Time International Ratio 2017-09-25 11:58:00* Test Item Value Reference Range Interpretation Comments Prothromb Time International Ratio (test code = 6301-6) 1.08 Oral Anticoagulant Therapy INR Values:1. Low Intensity Therapy 1.5 - 2.02 . Moderate Intensity Therapy 2.0 - 3.03. High Intensity Therapy(1) 2.5 - 3. 54. High Intensity Therapy(2) 3.0 - 4.05. Panic Value INR > 5.[address] [facility] HospitalActivated Partial Thromboplast Time 2017-09-25 11:58:00* Test Item Value Reference Range Interpretation Comments Activated Partial Thromboplast Time (test code = 37060-8) 23.7 23.8-35.[address] [facility] HospitalB-Type Natriuretic Ffsdlae8915-53-06 11:58:00* Test Item Value Reference Range Interpretation Comments B-Type Natriuretic Peptide (test code = 94227-5) 77.1 0-[address] [facility] HospitalInfluenza Virus Types A,B Antigen 2017-09-25 11:57:00* Test Item Value Reference Range Interpretation Comments Influenza Virus Types A,B Antigen (test code = 03750-2) NEGATIVE NEGATIVE [facility] HospitalInfluenza Virus Types A,B Antigen 2017-09-25 11:57:00* Test Item Value Reference Range Interpretation Comments Influenza Virus Types A,B Antigen (test code = 37612-0) NEGATIVE NEGATIVE [facility] HospitalInfluenza Virus Types A,B Antigen 2017-09-25 11:57:00* Test Item Value Reference Range Interpretation Comments Influenza Virus Types A,B Antigen (test code = 73320-8) NEGATIVE NEGATIVE [facility] HospitalInfluenza Virus Types A,B Antigen 2017-09-25 11:57:00* Test Item Value Reference Range Interpretation Comments Influenza Virus Types A,B Antigen (test code = 78041-2) NEGATIVE NEGATIVE [facility] HospitalInfluenza Virus Types A,B Antigen 2017-09-25 11:57:00* Test Item Value Reference Range Interpretation Comments Influenza Virus Types A,B Antigen (test code = 13072-1) NEGATIVE NEGATIVE [facility] HospitalInfluenza Virus Types A,B Antigen 2017-09-25 11:57:00* Test Item Value Reference Range Interpretation Comments Influenza Virus Types A,B Antigen (test code = 66767-3) NEGATIVE NEGATIVE [facility] HospitalInfluenza Virus Types A,B Antigen 2017-09-25 11:57:00* Test Item Value Reference Range Interpretation Comments Influenza Virus Types A,B Antigen (test code = 29231-0) NEGATIVE NEGATIVE [facility] HospitalInfluenza Virus Types A,B Antigen 2017-09-25 11:57:00* Test Item Value Reference Range Interpretation Comments Influenza Virus Types A,B Antigen (test code = 29331-5) NEGATIVE NEGATIVE [facility] HospitalInfluenza Virus Types A,B Antigen 2017-09-25 11:57:00* Test Item Value Reference Range Interpretation Comments Influenza Virus Types A,B Antigen (test code = 21947-9) NEGATIVE NEGATIVE [facility] HospitalInfluenza Virus Types A,B Antigen 2017-09-25 11:57:00* Test Item Value Reference Range Interpretation Comments Influenza Virus Types A,B Antigen (test code = 70680-7) NEGATIVE NEGATIVE [facility] HospitalInfluenza Virus Types A,B Antigen 2017-09-25 11:57:00* Test Item Value Reference Range Interpretation Comments Influenza Virus Types A,B Antigen (test code = 36622-9) NEGATIVE NEGATIVE [facility] HospitalUrine [id number] 11:55:00* Test Item Value Reference Range Interpretation Comments Urine WBC (test code = 5821-4) NONE 0-[address] [facility] HospitalUrine [id number] 11:55:00* Test Item Value Reference Range Interpretation Comments Urine RBC (test code = 05616-2) NONE 0-[address] [facility] HospitalUrine Znoaadlo8742-12-14 11:55:00* Test Item Value Reference Range Interpretation Comments Urine Bacteria (test code = 04578-4) NONE NONE [facility] HospitalUrine Epithelial Evuhh4339-28-98 11:55:00 * Test Item Value Reference Range Interpretation Comments Urine Epithelial Cells (test code = 08522-7) RARE NONE [facility] HospitalUrine [id number] 11:55:00* Test Item Value Reference Range Interpretation Comments Urine WBC (test code = 5821-4) NONE 0-[address] [facility] HospitalUrine [id number] 11:55:00* Test Item Value Reference Range Interpretation Comments Urine RBC (test code = 05366-1) NONE 0-[address] [facility] HospitalUrine Ufshobvv3927-86-68 11:55:00* Test Item Value Reference Range Interpretation Comments Urine Bacteria (test code = 47505-8) NONE NONE [facility] HospitalUrine Epithelial Bdzmb1142-43-14 11:55:00 * Test Item Value Reference Range Interpretation Comments Urine Epithelial Cells (test code = 54344-0) RARE NONE [facility] HospitalThyroid Stimulating Hormone (TSH) 2017-09-25 11:50:00* Test Item Value Reference Range Interpretation Comments Thyroid Stimulating Hormone (TSH) (test code = 93069-5) 0.515 0.350-4.[address] [facility] HospitalThyroid Stimulating Hormone (TSH) 2017-09-25 11:50:00* Test Item Value Reference Range Interpretation Comments Thyroid Stimulating Hormone (TSH) (test code = 50794-5) 0.515 0.350-4.[address] HospitalThyroid Stimulating Hormone (TSH) 2017-09-25 11:50:00* Test Item Value Reference Range Interpretation Comments Thyroid Stimulating Hormone (TSH) (test code = 55724-0) 0.515 0.350-4.[address] [facility] HospitalThyroid Stimulating Hormone (TSH) 2017-09-25 11:50:00* Test Item Value Reference Range Interpretation Comments Thyroid Stimulating Hormone (TSH) (test code = 63108-2) 0.515 0.350-4.[address] HospitalThyroid Stimulating Hormone (TSH) 2017-09-25 11:50:00* Test Item Value Reference Range Interpretation Comments Thyroid Stimulating Hormone (TSH) (test code = 76111-3) 0.515 0.350-4.[address] [facility] HospitalUrine Dxysa2361-62-87 11:45:00* Test Item Value Reference Range Interpretation Comments Urine Color (test code = 5778-6) COLORLESS YELLOW [facility] HospitalUrine Osvaenc8805-90-67 11:45:00* Test Item Value Reference Range Interpretation Comments Urine Clarity (test code = 21841-7) CLEAR CLEAR [facility] HospitalUrine Specific Jgouaam2157-65-50 11:45:00 * Test Item Value Reference Range Interpretation Comments Urine Specific [place] (test code = 5811-5) 1.010 1.010-1.[address] [facility] HospitalUrine [id number] 11:45:00* Test Item Value Reference Range Interpretation Comments Urine pH (test code = 08448-1) 6 5-[address] [facility] HospitalUrine Leukocyte Sxwxzwup5348-04-35 11:45:00* Test Item Value Reference Range Interpretation Comments Urine Leukocyte Esterase (test code = 5799-2) NEGATIVE NEGATIVE [facility] HospitalUrine Ioosqfj4201-73-18 11:45:00* Test Item Value Reference Range Interpretation Comments Urine Nitrite (test code = 64260-5) NEGATIVE NEGATIVE [facility] HospitalUrine Gunshxv2954-08-03 11:45:00* Test Item Value Reference Range Interpretation Comments Urine Protein (test code = 5804-0) NEGATIVE NEGATIVE [facility] HospitalUrine Glucose (UA)2017-09-25 11:45:00* Test Item Value Reference Range Interpretation Comments Urine Glucose (UA) (test code = 2349-9) NEGATIVE NEGATIVE [facility] HospitalUrine Majeytb0089-62-84 11:45:00* Test Item Value Reference Range Interpretation Comments Urine Ketones (test code = 45784-6) NEGATIVE NEGATIVE [facility] HospitalUrine Xetjijbehbjo8197-82-58 11:45:00* Test Item Value Reference Range Interpretation Comments Urine Urobilinogen (test code = 95586-0) 0.2 0.2-[address] HospitalUrine Krbucivar8267-79-05 11:45:00* Test Item Value Reference Range Interpretation Comments Urine Bilirubin (test code = 1978-6) NEGATIVE NEGATIVE [facility] HospitalUrine Aqvgz2461-83-96 11:45:00* Test Item Value Reference Range Interpretation Comments Urine Blood (test code = 98716-7) NEGATIVE NEGATIVE [facility] HospitalUrine Dxazi1842-88-27 11:45:00* Test Item Value Reference Range Interpretation Comments Urine Color (test code = 5778-6) COLORLESS YELLOW [facility] HospitalUrine Cwvfqxj1658-28-81 11:45:00* Test Item Value Reference Range Interpretation Comments Urine Clarity (test code = 21642-8) CLEAR CLEAR [facility] HospitalUrine Specific Afuarxk3441-33-62 11:45:00 * Test Item Value Reference Range Interpretation Comments Urine Specific [place] (test code = 5811-5) 1.010 1.010-1.[address] [facility] HospitalUrine lL4318-04-12 11:45:00* Test Item Value Reference Range Interpretation Comments Urine pH (test code = 43812-0) 6 5-[address] [facility] HospitalUrine Leukocyte Ncjqivqr9530-21-33 11:45:00* Test Item Value Reference Range Interpretation Comments Urine Leukocyte Esterase (test code = 5799-2) NEGATIVE NEGATIVE [facility] HospitalUrine Rzdbuof4195-17-91 11:45:00* Test Item Value Reference Range Interpretation Comments Urine Nitrite (test code = 63174-4) NEGATIVE NEGATIVE [facility] HospitalUrine Ztyzfqj8805-74-74 11:45:00* Test Item Value Reference Range Interpretation Comments Urine Protein (test code = 5804-0) NEGATIVE NEGATIVE [facility] HospitalUrine Glucose (UA)2017-09-25 11:45:00* Test Item Value Reference Range Interpretation Comments Urine Glucose (UA) (test code = 2349-9) NEGATIVE NEGATIVE [facility] HospitalUrine Spjncmf4090-10-55 11:45:00* Test Item Value Reference Range Interpretation Comments Urine Ketones (test code = 25571-0) NEGATIVE NEGATIVE [facility] HospitalUrine Lhgdmdegltpm9783-58-81 11:45:00* Test Item Value Reference Range Interpretation Comments Urine Urobilinogen (test code = 35830-4) 0.2 0.2-[address] [facility] HospitalUrine Yisreznzj4013-66-56 11:45:00* Test Item Value Reference Range Interpretation Comments Urine Bilirubin (test code = 1978-6) NEGATIVE NEGATIVE [facility] HospitalUrine Ewzsu4935-74-29 11:45:00* Test Item Value Reference Range Interpretation Comments Urine Blood (test code = 64480-4) NEGATIVE NEGATIVE [facility] HospitalTotal Dhkqkfohv2009-75-06 11:25:00* Test Item Value Reference Range Interpretation Comments Total Bilirubin (test code = 1975-2) 0.3 0.2-1.[address] HospitalAspartate Amino Transf (AST/SGOT) 2017-09-25 11:25:00* Test Item Value Reference Range Interpretation Comments Aspartate Amino Transf (AST/SGOT) (test code = Aspartate Amino Transf (AST/SGOT)) 23 5-[address] [facility] HospitalAlanine Aminotransferase (ALT/SGPT) 2017-09-25 11:25:00* Test Item Value Reference Range Interpretation Comments Alanine Aminotransferase (ALT/SGPT) (test code = 1742-6) 27 0-[address] [facility] HospitalTotal Ugljikj4571-93-35 11:25:00* Test Item Value Reference Range Interpretation Comments Total Protein (test code = 2885-2) 6.8 6.5-8.[address] HospitalAlbumin2018-03-05 11:25:00* Test Item Value Reference Range Interpretation Comments Albumin (test code = 1751-7) 3.4 3.5-5.[address] [facility] HospitalGlobulin2018-03-05 11:25:00* Test Item Value Reference Range Interpretation Comments Globulin (test code = 65317-8) 3.4 2.3-3.[address] [facility] HospitalAlbumin/Globulin Udzak7712-22-55 11:25:00 * Test Item Value Reference Range Interpretation Comments Albumin/Globulin Ratio (test code = 1759-0) 1.0 0.8-2.[address] [facility] HospitalAlkaline Dfmjtwvpder0396-85-78 11:25:00* Test Item Value Reference Range Interpretation Comments Alkaline Phosphatase (test code = 6768-6) 67 40-150 [facility] Jiidvihnn4101-82-13 11:25:00* Test Item Value Reference Range Interpretation Comments Total Bilirubin (test code = 1975-2) 0.3 0.2-1.[address] [facility] HospitalAspartate Amino Transf (AST/SGOT) 2017-09-25 11:25:00* Test Item Value Reference Range Interpretation Comments Aspartate Amino Transf (AST/SGOT) (test code = Aspartate Amino Transf (AST/SGOT)) 23 5-[address] [facility] HospitalAlanine Aminotransferase (ALT/SGPT) 2017-09-25 11:25:00* Test Item Value Reference Range Interpretation Comments Alanine Aminotransferase (ALT/SGPT) (test code = 1742-6) 27 0-55 [facility] Mekouej9194-47-71 11:25:00* Test Item Value Reference Range Interpretation Comments Total Protein (test code = 2885-2) 6.8 6.5-8.[address] HospitalAlbumin2018-03-05 11:25:00* Test Item Value Reference Range Interpretation Comments Albumin (test code = 1751-7) 3.4 3.5-5.[address] [facility] HospitalGlobulin2018-03-05 11:25:00* Test Item Value Reference Range Interpretation Comments Globulin (test code = 82021-3) 3.4 2.3-3.[address] [facility] HospitalAlbumin/Globulin Abyje8929-73-82 11:25:00 * Test Item Value Reference Range Interpretation Comments Albumin/Globulin Ratio (test code = 1759-0) 1.0 0.8-2.[address] HospitalAlkaline Djwjskqazpg0596-28-31 11:25:00* Test Item Value Reference Range Interpretation Comments Alkaline Phosphatase (test code = 6768-6) 67 40-[address] [facility] HospitalBedside Jxuugpv9360-71-30 13:07:00* Test Item Value Reference Range Interpretation Comments Bedside Glucose (test code = 49756-1) 373 70-120 H Meter ID: [id number] [facility]Blood [facility] 2017-08-[facility] 07:45:00* Test Item Value Reference Range Interpretation Comments Blood Culture (test code = 71590491) NO GROWTH AFTER 48 HOURS [facility] Zxktb2769-54-76 07:23:00* Test Item Value Reference Range Interpretation Comments Sodium Level (test code = 2951-2) 139 136-[address] [facility] HospitalPotassium Kvwjv2158-95-40 07:23:00* Test Item Value Reference Range Interpretation Comments Potassium Level (test code = 2823-3) 4.7 3.5-5.[address] HospitalChloride Jtpdn2409-54-89 07:23:00* Test Item Value Reference Range Interpretation Comments Chloride Level (test code = 2075-0) 103 98-[address] HospitalCarbon Dioxide Rptxd7998-87-85 07:23:00* Test Item Value Reference Range Interpretation Comments Carbon Dioxide Level (test code = 2028-9) 28 22-[address] [facility] HospitalAnion Tqr7397-45-36 07:23:00* Test Item Value Reference Range Interpretation Comments Anion Gap (test code = 13794-1) 12.7 8-[address] [facility] HospitalBlood Urea Wynrddeo6142-50-45 07:23:00* Test Item Value Reference Range Interpretation Comments Blood Urea Nitrogen (test code = 3094-0) 19 7-[address] [facility] HospitalCreatinine2018-02-02 07:23:00* Test Item Value Reference Range Interpretation Comments Creatinine (test code = 2160-0) 1.05 0.57-1.[address] [facility] HospitalBUN/Creatinine Xrvku7143-54-90 07:23:00* Test Item Value Reference Range Interpretation Comments BUN/Creatinine Ratio (test code = 3097-3) 18 6-[address] [facility] HospitalEstimat Glomerular Filtration Rate 2017-08-25 07:23:00* Test Item Value Reference Range Interpretation Comments Estimat Glomerular Filtration Rate (test code = 51326-7) 53 >60 L Ranges were taken from the National Kidney Disease Education Program and the [facility] literature.Reference ranges:60 or greater: Zzppjy30-47 ( for 3 consecutive months): Chronic kidney disease 15 or less: Kidney failureCH[facility] HospitalGlucose Wefum0179-32-80 07:23:00* Test Item Value Reference Range Interpretation Comments Glucose Level (test code = EIW2863) 249 74-[address] [facility] HospitalCalcium Rqwqk5113-12-29 07:23:00* Test Item Value Reference Range Interpretation Comments Calcium Level (test code = 87486-1) 8.8 8.4-10.[address] [facility] HospitalTotal Gbvtqssor4030-35-17 07:23:00* Test Item Value Reference Range Interpretation Comments Total Bilirubin (test code = 1975-2) 0.5 0.2-1.[address] [facility] HospitalAspartate Amino Transf (AST/SGOT) 2017-08-25 07:23:00* Test Item Value Reference Range Interpretation Comments Aspartate Amino Transf (AST/SGOT) (test code = Aspartate Amino Transf (AST/SGOT)) 15 5-[address] [facility] HospitalAlanine Aminotransferase (ALT/SGPT) 2017-08-25 07:23:00* Test Item Value Reference Range Interpretation Comments Alanine Aminotransferase (ALT/SGPT) (test code = 1742-6) 16 0-[address] [facility] [facility] HospitalTotal Bgcwekm8841-99-13 07:23:00* Test Item Value Reference Range Interpretation Comments Total Protein (test code = 2885-2) 6.7 6.5-8.[address] [facility] HospitalAlbumin2018-02-02 07:23:00* Test Item Value Reference Range Interpretation Comments Albumin (test code = 1751-7) 3.3 3.5-5.[address] [facility] HospitalGlobulin2018-02-02 07:23:00* Test Item Value Reference Range Interpretation Comments Globulin (test code = 31965-0) 3.4 2.3-3.[address] [facility] HospitalAlbumin/Globulin Ffyyv5769-79-70 07:23:00 * Test Item Value Reference Range Interpretation Comments Albumin/Globulin Ratio (test code = 1759-0) 1.0 0.8-2.[address] [facility] HospitalAlkaline Nkpzstjjhsm1234-48-73 07:23:00* Test Item Value Reference Range Interpretation Comments Alkaline Phosphatase (test code = 6768-6) 62 40-[address] [facility] HospitalTriglycerides Mkncr8557-56-69 07:23:00* Test Item Value Reference Range Interpretation Comments Triglycerides Level (test code = 2571-8) 216 0-[address] [facility] HospitalCholesterol Krepq0436-28-89 07:23:00* Test Item Value Reference Range Interpretation Comments Cholesterol Level (test code = 2093-3) 181 0-199 Less than 200 mg/dL Low Ekai893 - 239 mg/dL Borderline Xgwt546 m g/dl and greater High Risk [facility] HospitalLDL Ixgboqmmzds9550-34-77 07:23:00* Test Item Value Reference Range Interpretation Comments LDL Cholesterol (test code = 2089-1) 109 60-[address] [facility] HospitalHDL Mpiersonszv0696-47-97 07:23:00* Test Item Value Reference Range Interpretation Comments HDL Cholesterol (test code = 2085-9) 29 40-[address] [facility] HospitalCholesterol/HDL Kjinm1089-97-27 07:23:00 * Test Item Value Reference Range Interpretation Comments Cholesterol/HDL Ratio (test code = 9830-1) 6.2 3.0-3.[address] [facility] HospitalTriglycerides Dcyvb5907-72-37 07:23:00* Test Item Value Reference Range Interpretation Comments Triglycerides Level (test code = 2571-8) 216 0-[address] [facility] HospitalCholesterol Ogrpv9710-27-57 07:23:00* Test Item Value Reference Range Interpretation Comments Cholesterol Level (test code = 2093-3) 181 0-199 Less than 200 mg/dL Low Ryzy759 - 239 mg/dL Borderline Tqzn351 m g/dl and greater High Risk [facility] HospitalLDL Qlnawluonxy8431-18-71 07:23:00* Test Item Value Reference Range Interpretation Comments LDL Cholesterol (test code = 2089-1) 109 60-[address] [facility] HospitalHDL Zyzflfhnoyh0129-64-77 07:23:00* Test Item Value Reference Range Interpretation Comments HDL Cholesterol (test code = 2085-9) 29 40-[address] [facility] HospitalCholesterol/HDL Fjmib7256-86-07 07:23:00 * Test Item Value Reference Range Interpretation Comments Cholesterol/HDL Ratio (test code = 9830-1) 6.2 3.0-3.[address] [facility] HospitalTriglycerides Cyeia0074-48-70 07:23:00* Test Item Value Reference Range Interpretation Comments Triglycerides Level (test code = 2571-8) 216 0-[address] [facility] HospitalCholesterol Qkcww6462-90-14 07:23:00* Test Item Value Reference Range Interpretation Comments Cholesterol Level (test code = 2093-3) 181 0-199 Less than 200 mg/dL Low Askh871 - 239 mg/dL Borderline Rele828 m g/dl and greater High Risk [facility] HospitalLDL Qgjsqhtpkxt8434-75-76 07:23:00* Test Item Value Reference Range Interpretation Comments LDL Cholesterol (test code = 2089-1) 109 60-130 [facility] Ckqxebmrnyt7808-74-12 07:23:00* Test Item Value Reference Range Interpretation Comments HDL Cholesterol (test code = 2085-9) 29 40-[address] [facility] [facility] HospitalCholesterol/HDL Qhvrm8910-36-68 07:23:00 * Test Item Value Reference Range Interpretation Comments Cholesterol/HDL Ratio (test code = 9830-1) 6.2 3.0-3.[address] [facility] HospitalTriglycerides Yrifn0326-73-19 07:23:00* Test Item Value Reference Range Interpretation Comments Triglycerides Level (test code = 2571-8) 216 0-[address] [facility] HospitalCholesterol Dvpau7230-27-46 07:23:00* Test Item Value Reference Range Interpretation Comments Cholesterol Level (test code = 2093-3) 181 0-199 Less than 200 mg/dL Low Mlae389 - 239 mg/dL Borderline Inte652 m g/dl and greater High Risk [facility] Owgahzjgnkh1641-61-23 07:23:00* Test Item Value Reference Range Interpretation Comments LDL Cholesterol (test code = 2089-1) 109 60-130 [facility] Cgzmssdazim3142-96-76 07:23:00* Test Item Value Reference Range Interpretation Comments HDL Cholesterol (test code = 2085-9) 29 40-[address] [facility]/HDL Uqlmg8151-56-15 07:23:00 * Test Item Value Reference Range Interpretation Comments Cholesterol/HDL Ratio (test code = 9830-1) 6.2 3.0-3.[address] [facility] HospitalTriglycerides Ipqwg6315-38-00 07:23:00* Test Item Value Reference Range Interpretation Comments Triglycerides Level (test code = 2571-8) 216 0-[address] [facility]Cholesterol Maogd7137-65-64 07:23:00* Test Item Value Reference Range Interpretation Comments Cholesterol Level (test code = 2093-3) 181 0-199 Less than 200 mg/dL Low Pgui359 - 239 mg/dL Borderline Hrae551 m g/dl and greater High Risk [facility] HospitalLDL Dlpfbbgtuwj8367-70-32 07:23:00* Test Item Value Reference Range Interpretation Comments LDL Cholesterol (test code = 2089-1) 109 60-130 [facility] Vukmvtmbsli5452-67-26 07:23:00* Test Item Value Reference Range Interpretation Comments HDL Cholesterol (test code = 2085-9) 29 40-[address] [facility] HospitalCholesterol/HDL Pbwjb2357-60-06 07:23:00 * Test Item Value Reference Range Interpretation Comments Cholesterol/HDL Ratio (test code = 9830-1) 6.2 3.0-3.[address] [facility] HospitalTriglycerides Gplfj6968-10-35 07:23:00* Test Item Value Reference Range Interpretation Comments Triglycerides Level (test code = 2571-8) 216 0-[address] [facility] HospitalCholesterol Knilt3384-12-41 07:23:00* Test Item Value Reference Range Interpretation Comments Cholesterol Level (test code = 2093-3) 181 0-199 Less than 200 mg/dL Low Dlfi177 - 239 mg/dL Borderline Zokz471 m g/dl and greater High Risk [facility] HospitalLDL Oucyjbciufa6679-75-04 07:23:00* Test Item Value Reference Range Interpretation Comments LDL Cholesterol (test code = 2089-1) 109 60-130 [facility] Moubjalahhl1327-97-34 07:23:00* Test Item Value Reference Range Interpretation Comments HDL Cholesterol (test code = 2085-9) 29 40-[address] [facility]Cholesterol/HDL Mjejt3152-50-22 07:23:00 * Test Item Value Reference Range Interpretation Comments Cholesterol/HDL Ratio (test code = 9830-1) 6.2 3.0-3.[address] [facility] HospitalWhite Blood Mprps3331-26-22 07:08:00* Test Item Value Reference Range Interpretation Comments White Blood Count (test code = 6690-2) 4.69 4.8-10.[address] [facility] HospitalRed Blood Udrjb0896-98-88 07:08:00* Test Item Value Reference Range Interpretation Comments Red Blood Count (test code = 789-8) 4.53 3.6-5.[address] HospitalHemoglobin2018-02-02 07:08:00* Test Item Value Reference Range Interpretation Comments Hemoglobin (test code = 26211-0) 11.9 12.0-16.[address] HospitalHematocrit2018-02-02 07:08:00* Test Item Value Reference Range Interpretation Comments Hematocrit (test code = 4544-3) 39.4 34.2-44.[address] [facility] HospitalMean Corpuscular Pamkbv0121-23-91 07:08:00* Test Item Value Reference Range Interpretation Comments Mean Corpuscular Volume (test code = 787-2) 87.0 81-[address] [facility] [facility] HospitalMean Corpuscular Xwywgimchs9580-35-67 07:08:00* Test Item Value Reference Range Interpretation Comments Mean Corpuscular Hemoglobin (test code = 785-6) 26.3 28-[address] [facility] HospitalMean Corpuscular Hemoglobin Concent 2017-08-25 07:08:00* Test Item Value Reference Range Interpretation Comments Mean Corpuscular Hemoglobin Concent (test code = 786-4) 30.2 31-[address] [facility] HospitalRed Cell Distribution Gqbvl3912-18-72 07:08:00* Test Item Value Reference Range Interpretation Comments Red Cell Distribution Width (test code = 55734-8) 14.8 11.7 -14.[address] [facility] HospitalPlatelet Ortxl0607-52-17 07:08:00* Test Item Value Reference Range Interpretation Comments Platelet Count (test code = 777-3) 177 140-[address] [facility] [address] HospitalNeutrophils (%) (Auto)2017-08-25 07:08:00 * Test Item Value Reference Range Interpretation Comments Neutrophils (%) (Auto) (test code = 01469-4) 55.5 38.7-80.[address] [facility] HospitalLymphocytes (%) (Auto)2017-08-25 07:08:00 * Test Item Value Reference Range Interpretation Comments Lymphocytes (%) (Auto) (test code = 736-9) 28.8 18.0-39.[address] [facility] HospitalMonocytes (%) (Auto)2017-08-25 07:08:00* Test Item Value Reference Range Interpretation Comments Monocytes (%) (Auto) (test code = 5905-5) 8.7 4.4-11.[address] [facility] HospitalEosinophils (%) (Auto)2017-08-25 07:08:00 * Test Item Value Reference Range Interpretation Comments Eosinophils (%) (Auto) (test code = 713-8) 5.1 0.0-6.[address] [facility] HospitalBasophils (%) (Auto)2017-08-25 07:08:00* Test Item Value Reference Range Interpretation Comments Basophils (%) (Auto) (test code = 706-2) 1.3 0.0-1.[address] [facility] HospitalIM GRANULOCYTES %2017-08-25 07:08:00* Test Item Value Reference Range Interpretation Comments IM GRANULOCYTES % (test code = IM GRANULOCYTES %) 0.6 0.0- 1.[address] [facility] HospitalNeutrophils # (Auto)2017-08-25 07:08:00* Test Item Value Reference Range Interpretation Comments Neutrophils # (Auto) (test code = 751-8) 2.6 2.1-6.[address] [facility] HospitalLymphocytes # (Auto)2017-08-25 07:08:00* Test Item Value Reference Range Interpretation Comments Lymphocytes # (Auto) (test code = 14305-9) 1.4 1.0-3.[address] HospitalMonocytes # (Auto)2017-08-25 07:08:00* Test Item Value Reference Range Interpretation Comments Monocytes # (Auto) (test code = 742-7) 0.4 0.2-0.[address] [facility] HospitalEosinophils # (Auto)2017-08-25 07:08:00* Test Item Value Reference Range Interpretation Comments Eosinophils # (Auto) (test code = 711-2) 0.2 0.0-0.[address] [facility] HospitalBasophils # (Auto)2017-08-25 07:08:00* Test Item Value Reference Range Interpretation Comments Basophils # (Auto) (test code = 704-7) 0.1 0.0-0.[address] [facility] HospitalAbsolute Immature Granulocyte (auto 2017-08-25 07:08:00* Test Item Value Reference Range Interpretation Comments Absolute Immature Granulocyte (auto (joseph t code = Absolute Immature Granulocyte (auto) 0.03 0-0.[address] [facility] HospitalCreatine Siunqg8541-08-85 01:09:00* Test Item Value Reference Range Interpretation Comments Creatine Kinase (test code = 2157-6) 41 29-[address] [facility] HospitalCreatine Kinase IL7399-65-40 01:09:00* Test Item Value Reference Range Interpretation Comments Creatine Kinase MB (test code = 48593-5) 1.30 0.00-5.[address] [facility] HospitalTroponin L2016-09-32 01:09:00* Test Item Value Reference Range Interpretation Comments Troponin I (test code = 01918-7) 0.006 0-0.[address] HospitalHemoglobin A1c Ehnpbeb8152-41-38 18:39:00 * Test Item Value Reference Range Interpretation Comments Hemoglobin A1c Percent (test code = Hemoglobin A1c Percent) 7.6 4.0-7.[address] [facility] HospitalHemoglobin A1c Kkicgfz7717-13-09 18:39:00 * Test Item Value Reference Range Interpretation Comments Hemoglobin A1c Percent (test code = Hemoglobin A1c Percent) 7.6 4.0-7.[address] [facility] HospitalHemoglobin A1c Itnlbeu7178-16-47 18:39:00 * Test Item Value Reference Range Interpretation Comments Hemoglobin A1c Percent (test code = Hemoglobin A1c Percent) 7.6 4.0-7.[address] [facility] HospitalHemoglobin A1c Zxoxxey5784-22-24 18:39:00 * Test Item Value Reference Range Interpretation Comments Hemoglobin A1c Percent (test code = Hemoglobin A1c Percent) 7.6 4.0-7.[address] [facility] HospitalHemoglobin A1c Bpnsdxw3478-55-36 18:39:00 * Test Item Value Reference Range Interpretation Comments Hemoglobin A1c Percent (test code = Hemoglobin A1c Percent) 7.6 4.0-7.[address] [facility] HospitalHemoglobin A1c Djclhoi8274-61-62 18:39:00 * Test Item Value Reference Range Interpretation Comments Hemoglobin A1c Percent (test code = Hemoglobin A1c Percent) 7.6 4.0-7.[address] [facility] HospitalHemoglobin A1c Sfpumwb3296-10-26 18:39:00 * Test Item Value Reference Range Interpretation Comments Hemoglobin A1c Percent (test code = Hemoglobin A1c Percent) 7.6 4.0-7.[address] [facility] HospitalHemoglobin A1c Depgdhx3031-51-13 18:39:00 * Test Item Value Reference Range Interpretation Comments Hemoglobin A1c Percent (test code = Hemoglobin A1c Percent) 7.6 4.0-7.[address] [facility] [facility] HospitalHemoglobin A1c Tdkaqmu2903-86-87 18:39:00 * Test Item Value Reference Range Interpretation Comments Hemoglobin A1c Percent (test code = Hemoglobin A1c Percent) 7.6 4.0-7.[address] [facility] HospitalHemoglobin A1c Azxccpf4011-73-78 18:39:00 * Test Item Value Reference Range Interpretation Comments Hemoglobin A1c Percent (test code = Hemoglobin A1c Percent) 7.6 4.0-7.[address] [facility] HospitalUrine BPJ1611-72-31 07:50:00* Test Item Value Reference Range Interpretation Comments Urine WBC (test code = 5821-4) 0-5 0-[address] [facility] [facility] HospitalUrine LWW5429-87-50 07:50:00* Test Item Value Reference Range Interpretation Comments Urine RBC (test code = 85766-5) 0-5 0-[address] [facility] [facility] HospitalUrine Czbfsycr1507-55-00 07:50:00* Test Item Value Reference Range Interpretation Comments Urine Bacteria (test code = 28504-3) FEW NONE [facility] HospitalUrine Epithelial Jqisc8323-38-16 07:50:00 * Test Item Value Reference Range Interpretation Comments Urine Epithelial Cells (test code = 86813-0) FEW NONE [facility] HospitalB-Type Natriuretic Xtamnwj1626-87-05 07:47:00* Test Item Value Reference Range Interpretation Comments B-Type Natriuretic Peptide (test code = 55723-3) 17.8 0-[address] [facility] HospitalThyroid Stimulating Hormone (TSH) 2017-08-24 07:47:00* Test Item Value Reference Range Interpretation Comments Thyroid Stimulating Hormone (TSH) (test code = 90413-4) 1.123 0.350-4.[address] HospitalInfluenza Virus Types A,B Antigen 2017-08-24 07:39:00* Test Item Value Reference Range Interpretation Comments Influenza Virus Types A,B Antigen (test code = 10989-9) NEGATIVE NEGATIVE [facility] Kqjde0323-92-85 07:32:00* Test Item Value Reference Range Interpretation Comments Magnesium Level (test code = 29178-4) 2.0 1.3-2.1 [facility] Yiagj2714-34-34 07:32:00* Test Item Value Reference Range Interpretation Comments Magnesium Level (test code = 82509-3) 2.0 1.3-2.1 [facility] Jjzxh0107-04-66 07:32:00* Test Item Value Reference Range Interpretation Comments Magnesium Level (test code = 03262-3) 2.0 1.3-2.[address] [facility] [facility] HospitalProthrombin Stfs6511-64-16 07:19:00* Test Item Value Reference Range Interpretation Comments Prothrombin Time (test code = 5902-2) 13.0 11.9-14.[address] [facility] HospitalProthromb Time International Ratio 2017-08-24 07:19:00* Test Item Value Reference Range Interpretation Comments Prothromb Time International Ratio (test code = 6301-6) 0.94 Oral Anticoagulant Therapy INR Values:1. Low Intensity Therapy 1.5 - 2.02 . Moderate Intensity Therapy 2.0 - 3.03. High Intensity Therapy(1) 2.5 - 3. 54. High Intensity Therapy(2) 3.0 - 4.05. Panic Value INR > 5.[address] [facility] HospitalActivated Partial Thromboplast Time 2017-08-24 07:19:00* Test Item Value Reference Range Interpretation Comments Activated Partial Thromboplast Time (test code = 88470-6) 25.1 23.8-35.[address] [facility] HospitalUrine Bruty8408-27-75 07:18:00* Test Item Value Reference Range Interpretation Comments Urine Color (test code = 5778-6) YELLOW YELLOW [facility] HospitalUrine Edpelnq8681-73-91 07:18:00* Test Item Value Reference Range Interpretation Comments Urine Clarity (test code = 56466-2) CLEAR CLEAR [facility] HospitalUrine Specific Lxrhgxb7940-04-36 07:18:00 * Test Item Value Reference Range Interpretation Comments Urine Specific [place] (test code = 5811-5) 1.025 1.010-1.[address] [facility] HospitalUrine pO0875-66-70 07:18:00* Test Item Value Reference Range Interpretation Comments Urine pH (test code = 79597-7) 5 5-[address] [facility] HospitalUrine Leukocyte Zynegcma5948-37-46 07:18:00* Test Item Value Reference Range Interpretation Comments Urine Leukocyte Esterase (test code = 5799-2) NEGATIVE NEGATIVE [facility] Inmzgju7046-85-89 07:18:00* Test Item Value Reference Range Interpretation Comments Urine Nitrite (test code = 13767-5) NEGATIVE NEGATIVE [facility] HospitalUrine Ndsjwrx4628-70-58 07:18:00* Test Item Value Reference Range Interpretation Comments Urine Protein (test code = 5804-0) NEGATIVE NEGATIVE [facility] HospitalUrine Glucose (UA)2017-08-24 07:18:00* Test Item Value Reference Range Interpretation Comments Urine Glucose (UA) (test code = 2349-9) 3+ NEGATIVE H [facility] Xzrsgwr5688-35-27 07:18:00* Test Item Value Reference Range Interpretation Comments Urine Ketones (test code = 29387-8) NEGATIVE NEGATIVE [facility] Wlrgapovckyo4777-78-32 07:18:00* Test Item Value Reference Range Interpretation Comments Urine Urobilinogen (test code = 56740-9) 0.2 0.2-[address] [facility] HospitalUrine Fwunqtmar4076-10-93 07:18:00* Test Item Value Reference Range Interpretation Comments Urine Bilirubin (test code = 1978-6) NEGATIVE NEGATIVE [facility] HospitalUrine Hkrxj7155-46-20 07:18:00* Test Item Value Reference Range Interpretation Comments Urine Blood (test code = 07643-1) NEGATIVE NEGATIVE [facility] HospitalUS RENAL RETROPERITONEAL COMP [place] [address] Patient Name: KALYANI TALAVERA MR #: [id number] : 1955 Age/Sex: 62/F Req #: [id number] Adm Physician: BENJAMIN MASTERS MD Ordered by: BENJAMIN MASTERS MD Report #: [id number] Locat ion: [facility] Room/Bed: [place] [address] Procedure: [id number] U S/US RENAL RETROPERITONEAL COMP Exam Date: [...] TO: BENJAMIN MASTERS MD CT BRAIN WO [place] [address] Patient Name: KALYANI TALAVERA MR #: [id number] : 1955 Age/Sex: 62/F Req #: [id number] Adm Physician: Ordered by: FLO TOLBERT MD Report #: [id number] Location: ER Room/Bed: Procedure: [id number] CT/CT BRAIN WO Exam Date: Exam Time: 2201 REPORT STATUS: Signed Examination: CT BRAIN WITHOUT [...] TO: Treasure TOLBERT MD CHEST 2 VIEWS [place] [address] Patient Name: KALYANI TALAVERA MR #: [id number] : 1955 Age/Sex: 62/F Req #: [id number] Adm Physician: Ordered by: FLO TOLBERT MD Report #: [id number] Location: ER Room/Bed: Procedure: [id number] DX/CHEST 2 VIEWS Exam Date: 12/23/17 Exam [...] FLO TOLBERT MD KNEE LEFT THREE VIEWS [place] [id number] Patient Name: KALYANI TALAVERA MR #: [id number] : 1955 Age/Sex: 62/F Req #: [id number] Adm Physician: Ordered by: JACQUES JANE MD Report #: [id number] Location: ER Room/Bed: Procedure: [id number] DX/KNEE LEFT THREE VIE WS Exam Date: 10/31/17 Exam Time: 0220 REPORT STATUS: Signed EXAM: KNEE LEFT THREE [...] JACQUES JANE MD PELVIS AP 1-2 VIEWS [place] [address] Patient Name: KALYANI TALAVERA MR #: [id number] : 1955 Age/Sex: 62/F Req #: [id number] Adm Physician: Ordered by: JACQUES JANE MD Report #: [id number] Location: ER Room/Bed: Procedure: [id number] DX/PELVIS AP 1-2 VIEWS Exam Date: 10/31/17 [...] TO: JACQUES JANE MD CHEST 2 VIEWS [place] [address] Patient Name: KALYANI TALAVERA MR #: [id number] : 1955 Age/Sex: 62/F Req #: [id number] Adm Physician: Ordered by: FLO TOLBERT MD Report #: [id number] Location: ER Room/Bed: Procedure: [id number] DX/CHEST 2 VIEWS Exam Date: 10/12/17 Exam [...] COPY TO: FLO TOLBERT MD FOOT RIGHT [place] [address] Patient Name: KALYANI TALAVERA MR #: [id number] : 1955 Age/Sex: 62/F Req #: [id number] Adm Physician: Ordered by: JEFFREY MCDUFFIE MD Report #: [id number] Location: ER Room/Bed: Procedure: [id number] DX/FOOT RIGHT COMPLETE Exa m Date: 10/11/17 [...] JEFFREY MCDUFFIE MD KNEE LEFT THREE VIEWS [place] [address] Patient Name: KALYANI TALAVERA MR #: [id number] : 1955 Age/Sex: 62/F Req #: [id number] Adm Physician: Ordered by: JEFFREY MCDUFFIE MD Report #: [id number] Location: ER Room/Bed: Procedure: [id number] DX/KNEE LEFT THREE VIEWS E xam Date: [...] TO: JEFFREY MCDUFFIE MD CT CHEST WO [place] [address] Patient Name: KALYANI TALAVERA MR #: [id number] : 1955 Age/Sex: 62/F Req #: [id number] [facility] Physician: Ordered by: RAFAELA ASTUDILLO NP Report #: [id number] Location: ER Room/Bed: Procedure: [id number] CT/CT CHEST WO Exam Date: Exam Time: [...] on 09/25/17 1307 COPY TO: RAFAELA ASTUDILLO BIOCHEMICAL ENGINEER CHEST SINGLE (PORTABLE) [place] [address] Patient Name: KALYANI TALAVERA MR #: [id number] : 1955 Age/Sex: 62/F Req #: [id number] Adm Physician: Ordered by: RAFAELA ASTUDILLO BIOCHEMICAL ENGINEER Report #: [id number] Location: ER Room/Bed: Procedure: [id number] DX/CHEST SINGLE (PORTABLE) E xam Date: 09/25/17 [...] on 09/25/17 1106 COPY TO: RAFAELA ASTUDILLO BIOCHEMICAL ENGINEER CHEST 2 VIEWS [place] [address] Patient Name: KALYANI TALAVERA MR #: [id number] : 1955 Age/Sex: 62/F Req #: [id number] Adm Physician: Ordered by: FLO TOLBERT MD Report #: [id number] Location: ER Room/Bed: Procedure: [id number] DX/CHEST 2 VIEWS Exam Date: Exam Time: 0715 REPORT STATUS: Signed PROCEDURE: CHEST 2 VIEWS TECHNIQUE: PA and lateral chest totaling 2 radio graphs INDICATION: Shortness of breath and syncope COMPARISON: [facility], DX, CHEST 2 VIEWS, 10/15/2016, 23:42. FINDINGS: [...] AILEEN TOLBERT MD CT CERVICAL SPINE WO [place] [address] Patient Name: KALYANI TALAVERA MR #: [id number] : 1955 Age/Sex: 62/F Req #: [id number] Adm Physician: Ordered by: FLO TOLBERT MD Report #: [id number] Location: ER Room/Bed: Procedure: [id number] CT/CT CERVICAL SPINE WO Exam D ate: [...] TO: FLO TOLBERT MD CT BRAIN WO [place] [address] Patient Name: KALYANI TALAVERA MR #: [id number] : 0 1955 Age/Sex: 62/F Req #: [id number] Adm Physician: Ordered by: FLO TOLBERT MD Report #: [id number] Location: ER Room/Bed: Procedure: [id number] CT/CT BRAIN WO Exam Date: 08/10 Exam [...] 7:54 AM Dictated By: RILEY WYNN MD [facility] Signed By: RILEY WYNN MD on 08/24/17 0754 Transcribed By: JIM on 08/24/17 0752 COPY TO: FLO TOLBERT MD
--- NOTE | 2020-04-03 20:04 | NUR ---
BS 94 AT THIS TIME. WILL CONTINUE TO MONITOR.
[2020-04-03 20:26] LABS: CLARITY,URINE CLEAR (CLEAR); COLOR,URINE YELLOW (YELLOW)
[2020-04-03 20:27] LABS: BILIRUBIN,URINE NEGATIVE (NEGATIVE); KETONES,URINE NEGATIVE (NEGATIVE); LEUKOCYTE ESTERASE ,URINE NEGATIVE (NEGATIVE); NITRITE,URINE NEGATIVE (NEGATIVE); PROTEIN,URINE DIPSTICK NEGATIVE (NEGATIVE); URINE UROBILINOGEN 0.2 mg/dL (0.2 - 1)
[2020-04-03 20:34] LABS: BACTERIA,URINE FEW /HPF
[2020-04-03] MEDS ORDERED: DEXTROSE 10% 1,000 ML IV ONE (20:45)
--- OUTSIDE RECORDS SUMMARY | 2020-04-03 21:00 | XMS REPORT | Continuity of Care Document ---
Author Author [facility] t Organization [facility] Address [address] [place] [address] Phone Unavailable Care Team Providers Care Plastic Outfitter Name Role Phone LUCILLE OLIVO MD PCP Aura Salgado Attphys Unavailable LUCILLE OLIVO Attphys Unavailable Treasure JANE Attphys [...] Date Expiration Date Mary wen [employer] [id number] 2013 00:00:00 [facility] [employer] [id number] 2013 00:00:00 [facility] Problems Condition Name Condition Details Condition Category Status Onset Date Resolution Date Last Treatment Date Treating Clinician Comments Source Uncontrolled type 2 diabetes mellitus Diabetes type 2, uncontrol led Problem Active [facility] Hyperglycemia Hyperglycemia Problem Active [facility] Pneumonia Pneumonia Problem Active [facility] Syncope Syncope Problem Active [facility] Chronic kidney disease CKD (chronic kidney disease) Problem Active [facility] Pre-syncope Syncope, near Problem Active [facility] Poorly controlled diabetes mellitus Poorly controlled diabetes m ellitus Problem Active [facility] Bradycardia with 41-50 beats per minute Bradycardia with 41- 50 beats per minute Problem Active [facility] Congestive heart failure CHF (congestive heart failure) Problem Active [facility] Chronic obstructive pulmonary disease COPD (chronic ob structive pulmonary disease) Problem Active [facility] Volume depletion Volume depletion Problem Active [facility] Allergies, Adverse Reactions, Alerts Allergy Name Allergy Type Status Severity Reaction(s) Onset Date Inacti ve Date Treating Clinician Comments Source Penicillins DA Active SV 2020-01-06 00:00:00 [facility] Penicillins DA Active SV 2019-12-12 00:00:00 [facility] Penicillins DA Active SV 2019-12-03 00:00:00 [facility] Penicillins DA Active SV 2019-11-20 00:00:00 [facility] Penicillins DA Active SV 2019-08-20 00:00:00 [facility] Penicillins DA Active SV 2019-08-06 00:00:00 [facility] Penicillins DA Active SV 2019-05-31 00:00:00 [facility] Penicillins DA Active SV 2019-05-17 00:00:00 [facility] Penicillin Allergy to Substance Active rash 2019-01-10 00:00:00 [facility] Penicillins DA Active SV 2017-11-15 00:00:00 [facility] Medications Ordered Medication Name Filled Medication Name Start Date Stop Da te Current Medication? Ordering Clinician Indication Dosage Frequency Signature (SIG) Comments Components Source Bacitracin/Polymyxin B Sulfate (Bacitrac in-Polymyxin Ointment) 28.35 Gm Oint...g. Bacitracin/Polymyxin B Sulfate (Bacitrac in-Polymyxin Ointment) 28.35 Gm Oint...g. 2019-04-23 00:00:00 Yes Elieser Dawson Md 2 Three Times A Day [facility] Betamethasone/Clotrimazole (Clotrimazole-Betamethasone Crm) 15 Gm Cr Betamethasone/Clotrimazole (Clotrimazole-Betamethasone Crm) 15 Gm Cr 2019-04-23 00:00:00 Yes Elieser Dawson Md 2 Three Times A Day [facility] Chlorhexidine Gluconate (Hibiclens) 120 Ml Liqd Chlorh exidine Gluconate (Hibiclens) 120 Ml Liqd 2019-04-23 00:00:00 Yes Elieser Dawson Md 5 Three Times A Day [facility] Aspirin (Aspir 81) 81 Mg Tablet. Aspirin (Aspir 81) 81 Mg Tablet. Yes 81 Daily [facility] Furosemide 40 Mg Tablet Furosemide 40 Mg Tablet Yes 40 Twice A Day [facility] Gabapentin 300 Mg Capsule Gabapentin 300 Mg Capsule Yes 300 Every 6 Hours [facility] Glimepiride 2 Mg Tablet Glimepiride 2 Mg Tablet Yes 2 Daily [facility] Insulin Glargine (Lantus 3ML Pen) 100 Units/1 Ml Inj I nsulin Glargine (Lantus 3ML Pen) 100 Units/1 Ml Inj Yes 60 Bedtime [facility] Insulin Lispro (Humalog) 100 Unit/1 Ml Insuln.pen Insu mateus Lispro (Humalog) 100 Unit/1 Ml Insuln.pen Yes 30 Three Times Daily With Meals [facility] Losartan Potassium 50 Mg Tablet Losartan Potassium 50 Mg Tablet Yes 50 Daily [facility] Metoprolol Tartrate 50 Mg Tablet Metoprolol Tartrate 50 Mg Tablet Yes 50 Twice A Day [facility] Omeprazole 40 Mg Capsule. Omeprazole 40 Mg Capsule.dr Yes 40 Daily [facility] Potassium Chloride 10 Meq Tablet.er Potassium Chloride 10 Meq Tablet. er Yes 10 Daily [facility] Ropinirole Hcl 1 Mg Tablet Ropinirole Hcl 1 Mg Tablet Yes 2 Four Times Daily [facility] Sertraline Hcl 100 Mg Tablet Sertraline Hcl 100 Mg Tablet Y es 100 Daily [facility] Simvastatin 40 Mg Tablet Simvastatin 40 Mg Tablet Yes 40 Today At 9:00PM [facility] Spironolactone 25 Mg Tablet Spironolactone 25 Mg Tablet Yes 25 Daily [facility] Insulin Human Regular (Humulin R U-500*) 500 Unit/1 Ml Inj, 50 Subcutaneously Insulin Human Regular (Humulin R U-500*) 500 Unit/1 Ml Inj, 50 Subcutaneously 2019-01-21 00:00:00 No 50 Three Times A Day [facility] Albuterol Sulfate (Proair Hfa Inhaler*) 8.5 Gm Inh, 2 Inh Albuterol Sulfate (Proair Hfa Inhaler*) 8.5 Gm Inh, 2 Inh 2019-01-16 00:00:00 No 2 Four Times Daily as needed for Shortness Of Breath [facility] Fenofibrate Nanocrystallized (Fenofibrate) 145 Mg Tabl et, 145 Mg Oral Fenofibrate Nanocrystallized (Fenofibrate) 145 Mg Tablet, 145 Mg Oral 2019-01-16 00:00:00 No 145 Daily [facility] Sildenafil Citrate (Revatio) 20 Mg Tab, 20 Mg Oral Calista denafil Citrate (Revatio) 20 Mg Tab, 20 Mg Oral 2019-01-16 00:00:00 No 20 Th ree Times A Day [facility] Solifenacin Succinate (Vesicare) 5 Mg Tablet, 10 Mg Or al Solifenacin Succinate (Vesicare) 5 Mg Tablet, 10 Mg Oral 2019-01-16 00:00:00 No 10 Bedtime [facility] Benzonatate (Tessalon Perle) 100 Mg Capsule, 100 Mg Or al Benzonatate (Tessalon Perle) 100 Mg Capsule, 100 Mg Oral 2019-01-13 00:00:00 No 100 Every 12 Hours [facility] Glimepiride 2 Mg Tablet, 4 Mg Oral Glimepiride 2 Mg Tablet, 4 Mg Oral 2019-01-13 00:00:00 No 4 Twice A Day [facility] Furosemide (Lasix) 40 Mg Tablet, 40 Mg Oral Furosemide (Lasix) 40 Mg Tablet, 40 Mg Oral 2018-07-03 00:00:00 No 40 Twice A Day [facility] Paroxetine Hcl 20 Mg Tablet, 40 Mg Oral Paroxetine Hcl 20 Mg Tablet, 40 Mg Oral 2018-06-27 00:00:00 No 40 Daily [facility] Tramadol Hcl (Ultram 50MG*) 50 Mg Tab, 50 Mg Oral Tram adol Hcl (Ultram 50MG*) 50 Mg Tab, 50 Mg Oral 2018-06-27 00:00:00 No 50 Every 12 Hours [facility] Insulin Regular, Human (Humulin R) 100 Unit/1 Ml Vial, 20 Units Subcutaneously Insulin Regular, Human (Humulin R) 100 Unit/1 Ml Vial, 20 Units Subcutaneously 2017-12-28 00:00:00 No 20 Twice A Day [facility] Insulin Detemir (Levemir) 100 Unit/1 Ml Vial, Insulin Detemir (Levemir) 100 Unit/1 Ml Vial, 2017-10-31 00:00:[address] [facility] Insulin Aspart (Novolog Mix 70-30 Vial) 100 Units/Ml M l, Insulin Aspart (Novolog Mix 70-30 Vial) 100 Units/Ml Ml, 2017-10-11 00:00:[address] [facility] Metformin Hcl (Glucophage) 500 Mg Tablet, Metformin Hc l (Glucophage) 500 Mg Tablet, 2017-09-28 00:00:[address] [facility] Metoprolol Succinate (Toprol Xl) 50 Mg Tab.er.24h, 50 Oral Metoprolol Succinate (Toprol Xl) 50 Mg Tab.er.24h, 50 Oral 2017-09-28 00:00:00 No 50 Twice A Day for Elevated Blood Pressure [facility] Procedures Procedure Date / Time Performed Performing Clinician [facility] e X-ray of chest, two views 2019-01-10 00:00:00 BOYD NICHOLS [facility] Computed tomography of brain without radiopaque contrast 201 03-04-19 00:00:00 EUNICE ELIESER Hernandez [facility] Computed tomography of cervical spine without contrast 07-11 00:00:00 EUNICE ELIESER S [facility] CT maxillofacial area wo contrast 2018-07-11 00:00:00 JEAN DAWSON [facility] X-ray of chest, single view 2018-07-01 00:00:00 BENJAMIN MASTERS [facility] X-ray of chest, two views 2018-06-27 00:00:00 TINA JANE [facility] Encounters Start Date/Time End Date/Time Encounter Type [facility] Encounter ID Source 2019-04-27 02:46:00 2019-04-27 04:46:00 Departed Emergency Room 1 [place] [facility] [id number] [facility] 2019-04-23 20:19:00 2019-04-23 20:58:00 Departed Emergency Room [facility] [id number] [facility] 2019-04-17 20:48:00 2019-04-17 21:35:00 Departed Emergency Room [facility] [id number] [facility] 2019-03-15 01:19:00 2019-03-15 03:30:00 Departed Emergency Room 1 JANEJACQUES BURLESON [facility] [id number] [facility] 2019-02-23 23:49:00 2019-02-24 05:38:00 Departed Emergency Room 1 JANEJACQUES [facility] [id number] [facility] 2019-01-18 14:54:00 2019-01-21 16:15:00 Discharged Inpatient 1 JACQUES JANE [facility] [id number] [facility] 2019-01-11 19:31:00 2019-01-13 15:36:00 Discharged Inpatient (obs) 1 [facility] [id number] [facility] 2019-01-10 15:21:00 2019-01-10 19:19:00 Departed Emergency Room 1 [facility] [id number] [facility] 2018-07-30 16:40:00 2018-07-31 01:45:00 Departed Emergency Room 1 [facility] [id number] [facility] 2018-07-11 10:03:00 2018-07-11 14:40:00 Departed Emergency Room 1 ELIESER DAWSON [facility] [id number] [facility] 2018-07-01 09:28:00 2018-07-03 14:06:00 Discharged Inpatient 1 LUCILLE OLIVO [facility] [id number] [facility] 2018-05-30 19:52:00 2018-05-30 20:30:00 Departed Emergency Room [facility] [id number] [facility] 2018-04-03 01:16:00 2018-04-03 04:19:00 Departed Emergency Room 1 ROBERT OLIVIA [facility] [id number] [facility] 2018-02-04 11:46:00 2018-02-07 13:55:00 Discharged Inpatient (obs) 1 ROBERT OLIVIA [facility] [id number] [facility] 2018-01-31 22:01:00 2018-02-01 02:14:00 Departed Emergency Room 1 [facility] [id number] [facility] 2017-12-24 00:08:00 2017-12-28 16:18:00 Discharged Inpatient (obs) 1 BENJAMIN MASTERS [facility] [id number] [facility] 2017-10-31 01:50:00 2017-10-31 03:18:00 Departed Emergency Room ER JACQUES JANE [facility] [id number] [facility] 2017-10-25 22:28:00 2017-10-26 00:09:00 Departed Emergency Room [facility] [id number] [facility] 2017-10-11 23:19:00 2017-10-12 04:45:00 Departed Emergency Room ER FLO TOLBERT [facility] [id number] [facility] 2017-10-11 07:38:00 2017-10-11 10:17:00 Departed Emergency Room ER JEFFREY MCDUFFIE [facility] [id number] [facility] 2017-09-25 14:18:00 2017-09-29 13:30:00 Discharged Inpatient ER JAYASHREE BADILLO [facility] [id number] [facility] 2017-08-24 13:00:00 2017-08-26 16:20:00 Discharged Inpatient (obs) ER FLO TOLBERT [facility] [id number] [facility] 2017-04-17 23:09:00 2017-04-18 03:16:00 Departed Emergency Room [facility] [id number] [facility] 2017-02-09 21:43:00 2017-02-10 02:38:00 Departed Emergency Room [facility] [id number] [facility] 2016-12-29 19:19:00 2016-12-30 01:00:00 Departed Emergency Room [facility] [id number] [facility] Results Test Description Test Time Test Comments Results Result Comments Source CT BRAIN WO 2020-04-03 19:32:00 [facility] [address] [address] Patient Name: KALYANI TALAVERA MR #: [id number] : 1955 Age/Sex: 65/F Req #: [id number] Adm Physician: Ordered by: Kelly Salgado MD Report #: [id number] Location: ER Room/Bed: Procedure: [id number] CT/CT BRAIN WO Exam Date: Exam Time: [...] SALGADO MD CHEST SINGLE (PORTABLE) 2020-03-31 08:48:[address] [address] Patient Name: KALYANI TALAVERA MR #: [id number] : 1955 Age/Sex: 65/F Req #: [id number] Adm Physician: LUCILLE OLIVO MD Ordered by: TAZ BRAVO MD Report #: [id number] Location: MED/SURG Room/Bed: [facility] Procedure: [id number] DX/CHEST SINGLE (PORTABLE) Exam Date: 03/31/20 Exam [...] MD, ABI CHEST 2 VIEWS 2020-03-30 06:46:00 [address] [place] [address] Patient Name: KALYANI TALAVERA MR #: [id number] : 1955 Age/Sex: 65/F Req #: [id number] Adm Physician: LUCILLE OLIVO MD Ordered by: PARIS JUAN MD Report #: [id number] Location: MED/SURG Room/Bed: [facility] Procedure: [id number] DX/CHEST 2 VIEWS Exam Date: Exam Time: [...] JUAN MD CT CHEST WO 2020-03-27 16:18:00 [address] [place] [address] Patient Name: KALYANI TALAVERA MR #: [id number] : 1955 [facility] 65[id number] Req #: [id number] Adm Physician: LUCILLE OLIVO MD Ordered by: PARIS JUAN MD Report #: [id number] Location: MED/SURG Room/Bed: [facility] Procedure: [id number] CT/CT CHEST WO Exam Date: Exam Time: [...] JUAN MD CHEST SINGLE (PORTABLE) 2020-03-27 03:41:00 [address] [place] [address] Patient Name: KALYANI TALAVERA MR #: [id number] : 1955 Age/Sex: 65/F Req #: [id number] Adm Physician: Ordered by: RAFAELA MCADAMS DO Report #: [id number] Location: ER Room/Bed: Procedure: [id number] DX/CHEST SINGLE (PORTABLE) Exam Date: 03/27/20 Exam Time: 214 REPORT STATUS: Signed EXAMINATION: CHEST SINGLE (PORTABLE) INDICATION: [id number] COMPARISON: 02/23/2020 FINDINGS: AP view TUBES [...] MCADAMS DO CHEST SINGLE (PORTABLE) 2020-03-12 03:34:00 [address] [place] [address] Patient Name: KALYANI TALAVERA MR #: [id number] : 1955 Age/Sex: 65/F Req #: [id number] Adm Physician: Ordered by: JACQUES JANE MD Report #: [id number] Location: ER Room/Bed: Procedure: [id number] DX/CHEST SINGLE (PORTABLE) Exam Date: 03/12/20 Exam [...] MD CHEST XRAY LINE PLACEMENT 2020-02-26 21:45:00 [facility] [address] [address] Patient Name: KALYANI TALAVERA MR #: [id number] : 1955 Age/Sex: 64/F Req #: [id number] Adm Physician: LUCILLE OLIVO MD Ordered by: FLO TOLBERT MD Report #: [id number] Location: MED/SURG Room/Bed: [facility] Procedure: [id number] DX/CHEST XRAY LINE PLACEMENT Exam Date: 02/26/20 [...] TOLBERT MD CT ABDOMEN/PELVIS WO 2020-02-26 16:53:00 [facility] [address] [id number] Patient Name: KALYANI TALAVERA MR #: [id number] : 1955 Age/Sex: 64/F Req #: [id number] Adm Physician: Ordered by: FLO TOLBERT MD Report #: [id number] Location: ER Room/Bed: Procedure: CT/CT ABDOMEN/PELVIS WO [...] TOLBERT MD CHEST SINGLE (PORTABLE) 2020-02-26 14:35:00 [address] [place] [address] Patient Name: KALYANI TALAVERA MR #: [id number] : 1955 Age/Sex: 64/F Req #: [id number] Adm Physician: Ordered by: FLO TOLBERT MD Report #: [id number] Location: ER Room/Bed: Procedure: [id number] DX/CHEST SINGLE (PORTABLE) Exam Date: 02/26/20 Exam [...] TOLBERT MD CHEST SINGLE (PORTABLE) 2020-02-08 06:52:00 [address] [place] [address] Patient Name: KALYANI TALAVERA MR #: [id number] : 1955 Age/Sex: 64/F Req #: [id number] Adm Physician: Ordered by: JACQUES JANE MD Report #: [id number] Location: ER Room/Bed: Procedure: [id number] DX/CHEST SINGLE (PORTABLE) Exam Date: 02/08/20 Exam [...] JANE MD CT CHEST W 2020-02-05 06:23:00 [place] [address] Patient Name: KALYANI TALAVERA MR #: [id number] : 1955 Age/Sex: 64/F Req #: [id number] Adm Physician: Ordered by: RAFAELA MCADAMS DO Report #: [id number] Location: ER Room/Bed: Procedure: [id number] CT/CT CHEST W Exam Date: 02/05/20 Exam [...] MCADAMS DO CT ABDOMEN/PELVIS W 2020-02-05 06:23:00 [place] [address] Patient Name: KALYANI TALAVERA MR #: [id number] : 1955 Age/Sex: 64/F Req #: [id number] Adm Physician: Ordered by: RAFAELA MCADAMS DO Report #: [id number] Location: ER Room/Bed: Procedure: [id number] CT/CT ABDOMEN/PELVIS W Exam Date: 02/05/20 Exam [...] 386 mg/dL 74-106 H Performed by certified thread milling machine set up operator at [facility] [id number] 11:50:00* Test Item Value Reference Range Interpretation Comments GLUBED (test code = GLUBED) 247 mg/dL 74-106 H Performed by certified thread milling machine set up operator at [facility] [id number] 08:17:00* Test Item Value Reference Range Interpretation Comments GLUBED (test code = GLUBED) 226 mg/dL 74-106 H Performed by certified thread milling machine set up operator at [facility] BASIC METABOLIC [id number] 06:17:00* Test Item Value Reference Range Interpretation [...] CA) 8.8 mg/dL 8.5-10.1 N BASIC METABOLIC [id number] 05:54:00* Test Item Value Reference Range Interpretation [...] CALCIUM (test code = CA) mg/dL 8.5-10.1 [id number] 20:08:00* Test Item Value Reference Range Interpretation Comments GLUBED (test code = GLUBED) 161 mg/dL 74-106 H Performed by certified thread milling machine set up operator at [facility] [id number] 16:30:00* Test Item Value Reference Range Interpretation Comments GLUBED (test code = GLUBED) 120 mg/dL 74-106 H Performed by certified thread milling machine set up operator at [facility] [id number] 11:27:00* Test Item Value Reference Range Interpretation Comments GLUBED (test code = GLUBED) 164 mg/dL 74-106 H Performed by certified thread milling machine set up operator at [facility] - XR CHEST 1 [id number] 09:27:00 FAX: Jasen Frias MD [phone] [place]: St: [facility] FAX: Taz Mccormick MD [phone] FAX: Benjamin Francis MD [phone] Name: KALYANI TALAVERA [facility] : 1955 Age/S: 64/F [address] [facility] Unit #: [id number] Loc: V.[address] [place] [address] Phys: Taz Bravo MD Acct: [id number] Dis Date: Status: ADM IN [facility] #: [phone] Exam Date: 01/27/2020 1040 FAX #: [phone] Reason: chf EXAMS: CPT CODE: [id number] XR CHEST 1 V 23959 HISTORY: CHF. COMPARISON: January 24, 2020. Location: [facility]. Suboptimal inspiration. Crowding of bronchovascular markings. Dependent changes. Vague groundglass opacities is nonspecific finding. Cardiomegaly. IMPRESSION: No infiltrates or congestion. Va raquel groundglass opacities. These are unchanged. Electronical ly Signed by Gregory Chowdhury on 01/27/2020 at 0966 Rep orted and signed by: Solomon Chowdhury [...] 127 mg/dL 74-106 H Performed by certified thread milling machine set up operator at [facility] [id number] 07:40:00* Test Item Value Reference Range Interpretation Comments GLUBED (test code = GLUBED) 116 mg/dL 74-106 H Performed by certified thread milling machine set up operator at [facility] [id number] 22:23:00* Test Item Value Reference Range Interpretation Comments GLUBED (test code = GLUBED) 259 mg/dL 74-106 H Performed by certified thread milling machine set up operator at [facility] [id number] 17:10:00* Test Item Value Reference Range Interpretation Comments GLUBED (test code = GLUBED) 219 mg/dL 74-106 H Performed by certified thread milling machine set up operator at [facility] [id number] 11:45:00* Test Item Value Reference Range Interpretation Comments GLUBED (test code = GLUBED) 265 mg/dL 74-106 H Performed by certified thread milling machine set up operator at [facility] [id number] 08:52:00* Test Item Value Reference Range Interpretation Comments GLUBED (test code = GLUBED) 317 mg/dL 74-106 H Performed by certified thread milling machine set up operator at [facility] [id number] 23:49:00* Test Item Value Reference Range Interpretation Comments GLUBED (test code = GLUBED) 327 mg/dL 74-106 H Performed by certified thread milling machine set up operator at [facility] [id number] 22:15:00* Test Item Value Reference Range Interpretation Comments GLUBED (test code = GLUBED) 339 mg/dL 74-106 H Performed by certified thread milling machine set up operator at [facility] [id number] 19:59:00* Test Item Value Reference Range Interpretation Comments GLUBED (test code = GLUBED) 497 mg/dL 74-106 H Performed by certified thread milling machine set up operator at [facility] [id number] 18:29:00* Test Item Value Reference Range Interpretation Comments GLUBED (test code = GLUBED) > 500 mg/dL 74-106 HH Performed by certified thread milling machine set [facility]~ [id number] 16:00:00* Test Item Value Reference Range Interpretation Comments GLUBED (test code = GLUBED) 377 mg/dL 74-106 H Performed by certified thread milling machine set up operator at [facility] [id number] 12:09:00* Test Item Value Reference Range Interpretation Comments GLUBED (test code = GLUBED) 441 mg/dL 74-106 H Performed by certified thread milling machine set [facility] BASIC METABOLIC [id number] 08:19:00* Test Item Value Reference Range Interpretation [...] CA) 8.7 mg/dL 8.5-10.1 N BASIC METABOLIC [id number] 08:11:00* Test Item Value Reference Range Interpretation [...] CALCIUM (test code = CA) mg/dL 8.5-10.1 [id number] 08:00:00* Test Item Value Reference Range Interpretation Comments GLUBED (test code = GLUBED) 493 mg/dL 74-106 H Performed by certified thread milling machine set [facility] [id number] 02:13:00* Test Item Value Reference Range Interpretation Comments GLUBED (test code = GLUBED) > 500 mg/dL 74-106 HH Performed by certified thread milling machine set [facility] [id number] 02:13:00* Test Item Value Reference Range Interpretation Comments GLUBED (test code = GLUBED) > 500 mg/dL 74-106 HH Performed by certified thread milling machine set [facility] [id number] 21:24:00* Test Item Value Reference Range Interpretation Comments GLUBED (test code = GLUBED) 497 mg/dL 74-106 H Performed by certified thread milling machine set up operator at [facility] [id number] 21:24:00* Test Item Value Reference Range Interpretation Comments GLUBED (test code = GLUBED) > 500 mg/dL 74-106 HH Performed by certified thread milling machine set [facility] BASIC METABOLIC [id number] 17:04:00* Test Item Value Reference Range Interpretation [...] CA) 8.6 mg/dL 8.5-10.1 N BASIC METABOLIC [id number] 16:49:00* Test Item Value Reference Range Interpretation [...] CALCIUM (test code = CA) mg/dL 8.5-10.1 [id number] 12:24:00* Test Item Value Reference Range Interpretation Comments GLUBED (test code = GLUBED) 344 mg/dL 74-106 H Performed by certified thread milling machine set up operator at [facility] CBC W/AUTO [id number] 08:32:00* Test Item Value Reference Range Interpretation [...] = MDIFF) NO, ONLY SCAN NEEDED DIFFERENTIAL [id number] 08:32:00* Test Item Value Reference Range Interpretation Comments STAIN ACCEPTABILITY (test code = STN ACCEPTABLE) STAIN ACCEPTABLE POLYCHROMASIA (test code = POLC) 1+ HYPOCHROMIA (test code = HYPO) 1+ POIKILOCYTOSIS (test code = POIK) 1+ ANISOCYTOSIS (test code = ANISO) 1+ PLATELET ESTIMATE (test code = PLTEST) ADEQUATE PLATELET MORPHOLOGY (test code = PLTMORPH) NORMAL URINALYSIS [id number] 07:09:00* Test Item Value Reference Range Interpretation [...] per HPF FEW Urine Source? Clean CatchURINALYSIS [id number] 07:05:00* Test Item Value Reference Range Interpretation [...] HPF NONE Urine Source? Clean CatchB-TYPE NATRIURETIC [id number] 06:41:00* Test Item Value Reference Range Interpretation Comments B-TYPE NATRIURETIC PEPTIDE (test code = BNP) 14.6 pgram/mL 0-100 N CBC W/AUTO [id number] 05:36:00* Test Item Value Reference Range Interpretation [...] = MDIFF) NO, ONLY SCAN NEEDED DIFFERENTIAL [id number] 05:36:00* Test Item Value Reference Range Interpretation Comments STAIN ACCEPTABILITY (test code = STN ACCEPTABLE) MORPHOLOGY COMMENT (test code = MOC) PLATELET ESTIMATE (test code = PLTEST) PLATELET MORPHOLOGY (test code = PLTMORPH) CBC W/AUTO [id number] 05:35:00* Test Item Value Reference Range Interpretation [...] = MDIFF) NO, ONLY SCAN NEEDED DIFFERENTIAL [id number] 05:35:00* Test Item Value Reference Range Interpretation Comments STAIN ACCEPTABILITY (test code = STN ACCEPTABLE) CABOT RINGS (test code = CAB) MORPHOLOGY COMMENT (test code = MOC) PLATELET ESTIMATE (test code = PLTEST) PLATELET MORPHOLOGY (test code = PLTMORPH) CBC W/AUTO [id number] 05:35:00* Test Item Value Reference Range Interpretation [...] = MDIFF) NO, ONLY SCAN NEEDED DIFFERENTIAL [id number] 05:35:00* Test Item Value Reference Range Interpretation Comments STAIN ACCEPTABILITY (test code = STN ACCEPTABLE) MORPHOLOGY COMMENT (test code = MOC) PLATELET ESTIMATE (test code = PLTEST) PLATELET MORPHOLOGY (test code = PLTMORPH) CBC W/AUTO [id number] 05:35:00* Test Item Value Reference Range Interpretation [...] = MDIFF) NO, ONLY SCAN NEEDED DIFFERENTIAL [id number] 05:35:00* Test Item Value Reference Range Interpretation Comments STAIN ACCEPTABILITY (test code = STN ACCEPTABLE) CABOT RINGS (test code = CAB) MORPHOLOGY COMMENT (test code = MOC) PLATELET ESTIMATE (test code = PLTEST) PLATELET MORPHOLOGY (test code = PLTMORPH) BASIC METABOLIC [id number] 05:31:00* Test Item Value Reference Range Interpretation [...] CA) 8.5 mg/dL 8.5-10.1 N HEPATIC FUNCTION [id number] 05:31:00* Test Item Value Reference Range Interpretation [...] reference range due to change in reagent. [id number] 05:31:00* Test Item Value Reference Range Interpretation Comments MAGNESIUM (test code = MAG) 2.1 mg/dL 1.8-2.4 N [id number] 05:31:00* Test Item Value Reference Range Interpretation Comments TROPONIN-I (test code = TROPI) <0.015 ng/mL 0-0.045 N COVID 19 INHOUSE [id number] 04:50:00* Test Item Value Reference Range Interpretation Comments COVID 19 INHOUSE AG (test code = [id number]) NEGATIVE Is patient requiring admission or transfer? YIndication for rapid COVID-19 testi ng: Mod Clinical Suspicion- XR CHEST 1 V 2020-01-24 04:35:00 FAX: Benjamin Francis MD [phone] [place]: B St: REG FAX: Anastacio Burgess MD Name: KALYANI TALAVERA [facility] : 1955 Age/S: 64/F [address] Unit #: [id number] Loc: [place] [address] Phys: Anastacio Burgess MD Acct: [id number] Dis Date: Status: REG ER PHONE #: [phone] Exam Date: 01/24/2020 042 FAX #: [phone] Reason: SHORTNESS OF BREATH EXAMS: CPT CODE: [id number] XR CHEST 1 V 91115 EXAM: - XR CHEST 1 V HISTORY: [...] Masters; Anastacio Burgess MD Technologist: JACINDA LYONS AUTOCAD DESIGNER Trnscrd Da te/Time/By: 01/24/2020 (0435) : By: [email or web address] Orig Print D/T: S: 01/23 (0438) PAGE 1 Signed Report [id number] 12:58:00* Test Item Value Reference Range Interpretation Comments GLUBED (test code = GLUBED) 54 mg/dL 74-106 L Performed by certified thread milling machine set up operator at [facility] BASIC METABOLIC [id number] 09:17:00* Test Item Value Reference Range Interpretation [...] CA) 8.8 mg/dL 8.5-10.1 N BASIC METABOLIC [id number] 09:06:00* Test Item Value Reference Range Interpretation [...] CALCIUM (test code = CA) mg/dL 8.5-10.1 [id number] 08:29:00* Test Item Value Reference Range Interpretation Comments GLUBED (test code = GLUBED) 160 mg/dL 74-106 H Performed by certified thread milling machine set up operator at [facility] [id number] 20:47:00* Test Item Value Reference Range Interpretation Comments GLUBED (test code = GLUBED) 210 mg/dL 74-106 H Performed by certified thread milling machine set up operator at [facility] [id number] 18:37:00* Test Item Value Reference Range Interpretation Comments GLUBED (test code = GLUBED) 91 mg/dL 74-106 N Performed by certified thread milling machine set up operator at [facility] BASIC METABOLIC [id number] 17:55:00* Test Item Value Reference Range Interpretation [...] CA) 8.5 mg/dL 8.5-10.1 N BASIC METABOLIC [id number] 17:50:00* Test Item Value Reference Range Interpretation [...] CA) mg/dL 8.5-10.1 - XR CHEST 1 [id number] 17:38:00 FAX: Benjamin Francis MD [phone] [place]: St: ADM Name: KALYANI CATES [facility] : [birth year] Age/S: 64/F [address] Unit #: [id number] Loc: [address] [place] [address] Phys: Benjamin Masters MD Acct: [id number] Dis Date: Status: ADM IN PHONE #: [phone] Exam Date: 01/13/2020 1531 FAX #: [phone] Reason: CHF EXAMS: CPT CODE: [id number] XR CHEST 1 V 01965 EXAM: Chest x-ray, one view; INFORMATION: Shortness of breath, CHF; IMPRESSION: Moderate improvement compared with the recent study from January 11, 2020: The heart is decreased in size; mild cardiomegaly remains. Lung bases are better demarcated indicating resolution of interstitial edema; mild left heart failure remains. Location code: [facility] at 1738 Reported and signed by: Jc Bravo M.D. CC: Benjamin Masters Technologist: SAMPSON Soler) Trnscrd Date/Time/By: 01/13/2020 (173) : By: LeanneGRW Orig Print D/T: S: 01/13/2020 (0988) PAGE 1 Signed Report [id number] 17:22:00* Test Item Value Reference Range Interpretation Comments GLUBED (test code = GLUBED) 84 mg/dL 74-106 N Performed by certified thread milling machine set up operator at [facility] [id number] 16:46:00* Test Item Value Reference Range Interpretation Comments GLUBED (test code = GLUBED) 65 mg/dL 74-106 L Performed by certified thread milling machine set up operator at [facility] BRONCH LAVAGE FLD CELL [id number] 15:32:00* Test Item Value Reference Range Interpretation [...] [id number] Carlyle Markham BRONCHIAL [id number] 14:21:00 RUN DATE: 01/13/20 [place] - Lab PAGE 1 RUN TIME: 1421 Specimen Inqui ry RUN USER: INTERFACE PATIENT: KALYANI TALAVERA ACCT #: [id number] LOC: [place] U #: [id number] AGE/SX: 64/F ROOM: [facility] RE01/07/20REG DR: Benjamin Masters MD : [birth year] BED: A DIS: STATUS: ADM IN TLOC: SPEC #: [id number] RECD: 01/10/20 STATUS: SHREYA BROWN #: [id number] MARILEE: 01/10/20- SUBM DR: Benjamin Masters MD ENTERED: 01/10/20 SP TYPE: BRONCH WA OTHR DR: Ivett Valderrama i, MD, Kuldip Kumar MD Nassif, George M MDORDERED: GROSS COPIES TO: Ivett Christianson MD [address] [place], [place] [id number] Harry Gutierrez MD [address] [place], [place] [id number] Taz Bravo MD [address] [facility] [facility] [place] [address] Benjamin Murphy MD [address] [place] [address] PROCED URES: GROSS (01/13/20-1308) TISSUES: BRONCH LAVAGE - 60ML CLOUDY FLUID CLINICAL HISTORY COLLECTION DATE: 01/10/20 INTERSTITIAL LUNG DI SEASE FINAL DIAGNOSIS Left lingular bronchoalveolar lavage for cytol ogy and CD4/CD8 ratio: PULMONARY MACROPHAGES, NEUTROPHILS, AND A FEW COLU MNAR BRONCHIAL LINING CELLS NEGATIVE FOR MALIGNANCY CD4- CD8 RATIO 1.0: 1 (SEE INCLUDED ADX FLOW CYTOMETRY REPORT [id number]) CONTINUED ON NEXT PAGE RUN DATE: 01/13/20 [facility] PAGE 2 RUN TIME: 1421 Specimen Inquiry RUN USER: INTERFACE -- SPEC #: [id number] PATIENT: KALYANI TALAVERA #[id number] (Continued) FINAL DIAGNOSIS (Continued) BRITTNI/corby Simpson [id number], [address] FLOW CYTOMETRY A Flow cytometry repo rt is received from [facility] No:[id number] the int erpretation is as follows: Clinical [...] developed and its performance characteristics determined by [facility]. It has not been cleared or approved by the U.S. Food and Drug Administrat ion.The FDA has determined that such clearance is not necessary. This test is us ed for clinicalpurposes. It should not be regarded as investigational or for res earch. This laboratory iscertified under the Clinical Laboratory Improvement [place] ndments of 1987 (CLIA-88) as CONTINUED ON NEXT PAGE RUN DATE: 01/13/20 [place] [facility] PAGE 3 RUN TIME: 1421 Speci men Inquiry RUN USER: INTERFACE SPEC #: [id number] PATIENT: ARIE HernandezKALYANI GUARDADO #[id number] (Continued) FLOW CYTOMETRY (Continued) qualified to perform high complexity clinical te sting. The above report was reviewed and interpretive comments are provided. The comments areapproved for the medical records of the identified patient with my electronic signature. Electronic SignatureLachelle Iyer, Distribution A Class Lineman CPT C ode(s): 81989,71132(x21),96524 ICD Code(s): R89.7 The Technical and Professional components were performed at [facility], [address] [place] [address], [place] [address], [place] [address] . MACROSCOPIC The specimen is designated as "left lingula BAL". It consists of 60 mL of cloudy fluid for processing and evaluation. Material will be submitted for CD4 CD8 ratio test. A cell block is prepared. GROSS PERFORMED AT [facility] [address] [place] [address] [phone])[phone] MICROSCOPIC All of the stains, including any controls pe rformed, stain appropriately. MICROSCOPIC PERFORMED AT [facility] [address] [place] [address] [phone] PERFORMING SITE Diagnosis performed at: [facility] [address] [place], [place] [address] CONTINUED ON NEXT PAGE RUN DATE: 01/13/20 [facility] PAGE 4 RUN TIME: 1421 Specimen Inquiry RUN USER: Celestine MORENO Mary [facility] #: [id number] PATIENT: KALYANI TALAVERA #[id number] (Continued) Signed SIGNATURE ON FILE Petty Lowe MD 01/13/20 1421 END OF REPORT GLUBED 2020-01-13 12:45:00* Test Item Value Reference Range Interpretation Comments GLUBED (test code = GLUBED) 105 mg/dL 74-106 N Performed by certified thread milling machine set up operator at [facility] [id number] 08:07:00* Test Item Value Reference Range Interpretation Comments GLUBED (test code = GLUBED) 92 mg/dL 74-106 N Performed by certified thread milling machine set up operator at [facility] [id number] 19:54:00* Test Item Value Reference Range Interpretation Comments GLUBED (test code = GLUBED) 149 mg/dL 74-106 H Performed by certified thread milling machine set up operator at [facility] [id number] 17:05:00* Test Item Value Reference Range Interpretation Comments GLUBED (test code = GLUBED) 127 mg/dL 74-106 H Performed by certified thread milling machine set up operator at [facility] [id number] 12:02:00* Test Item Value Reference Range Interpretation Comments GLUBED (test code = GLUBED) 209 mg/dL 74-106 H Performed by certified thread milling machine set up operator at [facility] [id number] 08:45:00* Test Item Value Reference Range Interpretation Comments GLUBED (test code = GLUBED) 175 mg/dL 74-106 H Performed by certified thread milling machine set up operator at [facility] B-TYPE NATRIURETIC [id number] 07:19:00* Test Item Value Reference Range Interpretation Comments B-TYPE NATRIURETIC PEPTIDE (test code = BNP) 28.74 pgram/mL 0-100 N COMPREHENSIVE METABOLIC [id number] 07:07:00* Test Item Value Reference Range Interpretation [...] due to change in reagent. COMPREHENSIVE METABOLIC [id number] 06:56:00* Test Item Value Reference Range Interpretation [...] code = ALKP) IUnit/L 45-117 CBC W/AUTO [id number] 06:51:00* Test Item Value Reference Range Interpretation [...] code = NRBC#) 0.00 K/mm3 0.0-0.1 N [id number] 20:46:00* Test Item Value Reference Range Interpretation Comments GLUMAGDALENA (test code = GLUBED) 257 mg/dL 74-106 H Performed by certified thread milling machine set up operator at [facility] - XR CHEST 1 [id number] 18:25:00 FAX: Alfa Moscoso MD [phone] [place]: St: [facility] FAX: Benjamin Francis MD [phone] Name: KALYANI TALAVERA [facility] : 1955 Age/S: 64/F [address] [facility] [address] [facility]: [id number] Loc: [address] [place] [address] Phys: Alfa Cassidy MD Acct: [id number] Dis Date: Status: ADM IN PHONE #: [phone] Exam Date: 01/11/2020 1825 FAX #: [phone] Reason: CHF EXAMS: CPT CODE: [id number] XR CHEST 1 V 31548 REASON FOR EXAM: CHF Exam Order Date: [...] lung volumes with findings of CHF. Location: [facility] at 1825 Reported and signed by: Dago Goodson MD CC: Alfa Cassidy MD; Benjamin Masters Technologist: SCOOBY PARSONS, RT(R); TAWANNA HURTADO RT(R) Trnscrd Date/Time/By: 01/11/2020 (1824) : By: [email or web address] Orig Print D/T: S: 01/11/2020 (1827) PAGE 1 Signed Report [id number] 16:50:00* Test Item Value Reference Range Interpretation Comments GLUBED (test code = GLUBED) 262 mg/dL 74-106 H Performed by certified thread milling machine set up operator at [facility] [id number] 12:17:00* Test Item Value Reference Range Interpretation Comments GLUBED (test code = GLUBED) 348 mg/dL 74-106 H Performed by certified thread milling machine set up operator at [facility] [id number] 08:51:00* Test Item Value Reference Range Interpretation Comments GLUBED (test code = GLUBED) 361 mg/dL 74-106 H Performed by certified thread milling machine set up operator at [facility] BRONCH LAVAGE FLD CELL [id number] 22:17:00* Test Item Value Reference Range Interpretation [...] REVIEWED BY (test code = REVIEW) PATHOLOGIST [id number] 20:37:00* Test Item Value Reference Range Interpretation Comments GLUBED (test code = GLUBED) 334 mg/dL 74-106 H Performed by certified thread milling machine set up operator at [facility] [id number] 17:59:00* Test Item Value Reference Range Interpretation Comments GLUBED (test code = GLUBED) 310 mg/dL 74-106 H Performed by certified thread milling machine set up operator at [facility] [id number] 13:51:00* Test Item Value Reference Range Interpretation Comments GLUBED (test code = GLUBED) 260 mg/dL 74-106 H Performed by certified thread milling machine set up operator at [facility] BASIC METABOLIC [id number] 10:17:00* Test Item Value Reference Range Interpretation [...] CA) 8.6 mg/dL 8.5-10.1 N BASIC METABOLIC [id number] 10:13:00* Test Item Value Reference Range Interpretation [...] CALCIUM (test code = CA) mg/dL 8.5-10.1 [id number] 08:31:00* Test Item Value Reference Range Interpretation Comments GLUBED (test code = GLUBED) 191 mg/dL 74-106 H Performed by certified thread milling machine set up operator at [facility] CBC W/AUTO [id number] 07:02:00* Test Item Value Reference Range Interpretation [...] = MDIFF) NO, ONLY SCAN NEEDED DIFFERENTIAL [id number] 07:02:00* Test Item Value Reference Range Interpretation Comments STAIN ACCEPTABILITY (test code = STN ACCEPTABLE) STAIN ACCEPTABLE POLYCHROMASIA (test code = POLC) 1+ ANISOCYTOSIS (test code = ANISO) 2+ MICROCYTOSIS (test code = MICR) 2+ MORPHOLOGY COMMENT (test code = MOC) TEST NOT PERFORMED PLATELET ESTIMATE (test code = PLTEST) ADEQUATE PLATELET MORPHOLOGY (test code = PLTMORPH) NORMAL COMPREHENSIVE METABOLIC [id number] 05:34:00* Test Item Value Reference Range Interpretation [...] due to change in reagent. CBC W/AUTO [id number] 05:30:00* Test Item Value Reference Range Interpretation [...] = MDIFF) NO, ONLY SCAN NEEDED DIFFERENTIAL [id number] 05:30:00* Test Item Value Reference Range Interpretation Comments STAIN ACCEPTABILITY (test code = STN ACCEPTABLE) CABOT RINGS (test code = CAB) MORPHOLOGY COMMENT (test code = MOC) PLATELET ESTIMATE (test code = PLTEST) PLATELET MORPHOLOGY (test code = PLTMORPH) CBC W/AUTO [id number] 05:30:00* Test Item Value Reference Range Interpretation [...] = MDIFF) NO, ONLY SCAN NEEDED DIFFERENTIAL [id number] 05:30:00* Test Item Value Reference Range Interpretation Comments STAIN ACCEPTABILITY (test code = STN ACCEPTABLE) CABOT RINGS (test code = CAB) MORPHOLOGY COMMENT (test code = MOC) PLATELET ESTIMATE (test code = PLTEST) PLATELET MORPHOLOGY (test code = PLTMORPH) CBC W/AUTO [id number] 05:30:00* Test Item Value Reference Range Interpretation [...] = MDIFF) NO, ONLY SCAN NEEDED DIFFERENTIAL [id number] 05:30:00* Test Item Value Reference Range Interpretation Comments STAIN ACCEPTABILITY (test code = STN ACCEPTABLE) MORPHOLOGY COMMENT (test code = MOC) PLATELET ESTIMATE (test code = PLTEST) PLATELET MORPHOLOGY (test code = PLTMORPH) CBC W/AUTO [id number] 05:30:00* Test Item Value Reference Range Interpretation [...] = MDIFF) NO, ONLY SCAN NEEDED DIFFERENTIAL [id number] 05:30:00* Test Item Value Reference Range Interpretation Comments STAIN ACCEPTABILITY (test code = STN ACCEPTABLE) CABOT RINGS (test code = CAB) MORPHOLOGY COMMENT (test code = MOC) PLATELET ESTIMATE (test code = PLTEST) PLATELET MORPHOLOGY (test code = PLTMORPH) COMPREHENSIVE METABOLIC [id number] 05:24:00* Test Item Value Reference Range Interpretation [...] TOTAL (test code = ALKP) IUnit/L 45-117 [id number] 20:32:00* Test Item Value Reference Range Interpretation Comments GLUBED (test code = GLUBED) 108 mg/dL 74-106 H Performed by certified thread milling machine set up operator at [facility] [id number] 16:44:00* Test Item Value Reference Range Interpretation Comments GLUBED (test code = GLUBED) 125 mg/dL 74-106 H Performed by certified thread milling machine set up operator at [facility] Coronavirus 2019 nCoV [id number] 16:38:00* Test Item Value Reference Range Interpretation Comments Coronavirus 2019 nCoV Bedside (test code = COVNONPUIBED) Negative [id number] 12:17:00* Test Item Value Reference Range Interpretation Comments GLUBED (test code = GLUBED) 171 mg/dL 74-106 H Performed by certified thread milling machine set up operator at [facility] [id number] 08:34:00* Test Item Value Reference Range Interpretation Comments GLUBED (test code = GLUBED) 341 mg/dL 74-106 H Performed by certified thread milling machine set up operator at [facility] - CT CHEST W/[id number] 06:53:00 Name: KALYANI TALAVERA [facility] : 1955 Age/S: 64 / F [address] Unit #: [id number] Loc: [place] [address] Phys: Taz Bravo MD Acct: [id number] Dis Date: Status: ADM IN PHONE #: [phone] Exam Date: 01/08/20202247 FAX #: [phone] Reason: interstitial lung disease, pulmonary HTN EXAMS: CPT CODE: [id number] CT CHEST W/CONTRAST [address]752 HISTORY: Interstitial lung disease and pulmonary hypertension. [...] (0656) YANETH VARGAS 1 Signed Report PROTHROMBIN [id number] 05:24:00* Test Item Value Reference Range Interpretation [...] (2.5-3.5) IS PATIENT ON ANTICOAGULANTS? NTHROMBOPLASTIN TIME [id number] 05:24:00* Test Item Value Reference Range Interpretation Comments THROMBOPLASTIN TIME PARTIAL (test code = PTT) 27.5 seconds 23.0-37. 0 N IS PATIENT ON ANTICOAGULANTS? [id number] 20:06:00* Test Item Value Reference Range Interpretation Comments GLUBED (test code = GLUBED) 162 mg/dL 74-106 H Performed by certified thread milling machine set up operator at [facility] [id number] 17:04:00* Test Item Value Reference Range Interpretation Comments GLUBED (test code = GLUBED) 135 mg/dL 74-106 H Performed by certified thread milling machine set up operator at [facility] [id number] 12:10:00* Test Item Value Reference Range Interpretation Comments GLUBED (test code = GLUBED) 375 mg/dL 74-106 H Performed by certified thread milling machine set up operator at [facility] [id number] 08:11:00* Test Item Value Reference Range Interpretation Comments GLUBED (test code = GLUBED) 259 mg/dL 74-106 H Performed by certified thread milling machine set up operator at [facility] CBC W/AUTO [id number] 05:20:00* Test Item Value Reference Range Interpretation [...] = MDIFF) NO, ONLY SCAN NEEDED DIFFERENTIAL [id number] 05:20:00* Test Item Value Reference Range Interpretation [...] (test code = PLTMORPH) NORMAL B-TYPE NATRIURETIC [id number] 05:03:00* Test Item Value Reference Range Interpretation Comments B-TYPE NATRIURETIC PEPTIDE (test code = BNP) 24.60 pgram/mL 0-100 N COMPREHENSIVE METABOLIC [id number] 04:59:00* Test Item Value Reference Range Interpretation [...] due to change in reagent. COMPREHENSIVE METABOLIC [id number] 04:50:00* Test Item Value Reference Range Interpretation [...] code = ALKP) IUnit/L 45-117 CBC W/AUTO [id number] 04:45:00* Test Item Value Reference Range Interpretation [...] = MDIFF) NO, ONLY SCAN NEEDED DIFFERENTIAL [id number] 04:45:00* Test Item Value Reference Range Interpretation Comments STAIN ACCEPTABILITY (test code = STN ACCEPTABLE) CABOT RINGS (test code = CAB) MORPHOLOGY COMMENT (test code = MOC) PLATELET ESTIMATE (test code = PLTEST) PLATELET MORPHOLOGY (test code = PLTMORPH) CBC W/AUTO [id number] 04:45:00* Test Item Value Reference Range Interpretation [...] = MDIFF) NO, ONLY SCAN NEEDED DIFFERENTIAL [id number] 04:45:00* Test Item Value Reference Range Interpretation Comments STAIN ACCEPTABILITY (test code = STN ACCEPTABLE) CABOT RINGS (test code = CAB) MORPHOLOGY COMMENT (test code = MOC) PLATELET ESTIMATE (test code = PLTEST) PLATELET MORPHOLOGY (test code = PLTMORPH) CBC W/AUTO [id number] 04:45:00* Test Item Value Reference Range Interpretation [...] = MDIFF) NO, ONLY SCAN NEEDED DIFFERENTIAL [id number] 04:45:00* Test Item Value Reference Range Interpretation Comments STAIN ACCEPTABILITY (test code = STN ACCEPTABLE) MORPHOLOGY COMMENT (test code = MOC) PLATELET ESTIMATE (test code = PLTEST) PLATELET MORPHOLOGY (test code = PLTMORPH) CBC W/AUTO [id number] 04:45:00* Test Item Value Reference Range Interpretation [...] = MDIFF) NO, ONLY SCAN NEEDED DIFFERENTIAL [id number] 04:45:00* Test Item Value Reference Range Interpretation Comments STAIN ACCEPTABILITY (test code = STN ACCEPTABLE) CABOT RINGS (test code = CAB) MORPHOLOGY COMMENT (test code = MOC) PLATELET ESTIMATE (test code = PLTEST) PLATELET MORPHOLOGY (test code = PLTMORPH) [id number] 23:24:00* Test Item Value Reference Range Interpretation Comments GLUBED (test code = GLUBED) 292 mg/dL 74-106 H Performed by certified thread milling machine set up operator at [facility] [id number] 19:46:00* Test Item Value Reference Range Interpretation Comments GLUBED (test code = GLUBED) 306 mg/dL 74-106 H Performed by certified thread milling machine set up operator at [facility] - XR CHEST 1 [id number] 19:39:00 FAX: Taz Mccormick MD [phone] [place]: St: ADM FAX: Alfa Moscoso MD [phone] FAX: Benjamin Francis MD [phone] Name: KALYANI TALAVERA [facility] : 1955 Age/S: 64/F [address] [facility] Unit #: [id number] Loc: V.[address] [place] [address] Phys: Taz Bravo MD Acct: [id number] Dis Date: Status: ADM IN ONE #: [phone] Exam Date: 01/07/2020 1835 FAX #: [phone] Reason: chf EXAMS: CPT CODE: [id number] XR CHEST 1 V 02696 EXAM: Chest x- ray, one view; INFORMATION: Shortness of breath, CHF; IMPRESSION: 1. Compared with yesterday's study, the left lung is sli ghtly better aerated; 2. No further significant changes; persist ent cardiomegaly and interstitial edema consistent with left heart failu re. Location code: [facility] Electronically Sig rainer by Gregory Bravo on 01/07/2020 at 1939 Reported and signed by: Jc Bravo M.D. CC: Taz Bravo MD; Alfa Cassidy MD; Benjamin Masters Technologist: RT Frankie(R Trnscrd Date/Time/By: 01/07/2020 (1938) : By: Dannielle Orig Print D/T: S: 0 01/07/2020 (1941) PAGE 1 Signed Re port [id number] 16:14:00* Test Item Value Reference Range Interpretation Comments GLUBED (test code = GLUBED) 67 mg/dL 74-106 L Performed by certified thread milling machine set up operator at [facility] [id number] 11:11:00* Test Item Value Reference Range Interpretation Comments GLUBED (test code = GLUBED) 320 mg/dL 74-106 H Performed by certified thread milling machine set up operator at [facility] [id number] 07:56:00* Test Item Value Reference Range Interpretation Comments GLUBED (test code = GLUBED) 426 mg/dL 74-106 H Performed by certified thread milling machine set up operator at [facility] [id number] 20:36:00* Test Item Value Reference Range Interpretation Comments GLUBED (test code = GLUBED) > 500 mg/dL 74-106 HH Performed by certified thread milling machine set [facility]~ - US CHST W/[id number] 20:29:00 Name: KALYANI TALAVERA [facility] : 1955 Age/S: 64 / F [address] [facility] Unit #: [id number] [place] [address] Phys: Taz Bravo MD Acct: [id number] Dis Date: Status: ADM IN PHONE #: [phone] Exam Date: 01/06/2020 1950 FAX #: [phone] Reason: pleural effusions EXAMS: CPT CODE: [id number] US CHST W/MEDIASTINUM 64022 EXAM: Ultrasound of the chest; INFORMATION: Shortness of breath, pleural effusions? IMPRESSION: No sonographic evidence of pleural effusions. Location code: [facility] at 2028 Reported and signed by: Jc Bravo M.D. CC: Taz Bravo MD; Benjamin Masters Technologist: Tamy Lanier RDMS Trnscb Date/Time: 01/06/2020 (2028) LeanneGRW Orig Print D/T: S: 01/06/2020 (2031) Probe: PAGE 1 Signed Report [id number] 18:13:00* Test Item Value Reference Range Interpretation Comments GLUBED (test code = GLUBED) > 500 mg/dL 74-106 HH Performed by certified thread milling machine set [facility]~ [id number] 16:16:00* Test Item Value Reference Range Interpretation Comments GLUBED (test code = GLUBED) > 500 mg/dL 74-106 HH Performed by certified thread milling machine set [facility]~ [id number] 13:43:00* Test Item Value Reference Range Interpretation Comments TROPONIN-I (test code = TROPI) <0.015 ng/mL 0-0.045 N COMMENTS TO LOLLYPOP MACHINE OPERATOR: COLLECT 3 HOURS AFTER PREVIOUS SAMPLEB-TYPE NATRIURETIC [id number] 10:13:00* Test Item Value Reference Range Interpretation Comments B-TYPE NATRIURETIC PEPTIDE (test code = BNP) 44.58 pgram/mL 0-100 N BASIC METABOLIC [id number] 06:56:00* Test Item Value Reference Range Interpretation [...] code = CA) 8.8 mg/dL 8.5-10.1 N [id number] 06:56:00* Test Item Value Reference Range Interpretation Comments TROPONIN-I (test code = TROPI) <0.015 ng/mL 0-0.045 N BASIC METABOLIC [id number] 06:43:00* Test Item Value Reference Range Interpretation [...] CALCIUM (test code = CA) mg/dL 8.5-10.1 [id number] 06:43:00* Test Item Value Reference Range Interpretation Comments TROPONIN-I (test code = TROPI) ng/mL 0-0.045 CBC W/O [id number] 06:22:00* Test Item Value Reference Range Interpretation [...] fL 6.7-11.0 N - XR CHEST 1 [id number] 06:03:00 FAX: Colton Khalil MD [phone] [place]: St: [facility] FAX: Benjamin Francis MD [phone] Name: KALYANI TALAVERA [facility] : 1955 Age/S: 64/F [address] Unit #: [id number] Loc: [place] [address] Phys: Colton Khalil MD Acct: [id number] Dis Date: Status: REG ER PHONE #: [phone] Exam Date: 01/06/2020 0539 FAX #: [phone] Reason: Shortness of Breath EXAMS: CPT CODE: [id number] XR CHEST 1 V 39178 HISTORY: Shortness of breath Location: C3 COMPARISON:12/23/2019 [...] S: 01/06/2020 (605) PAGE 1 Signed Report [id number] 07:49:00* Test Item Value Reference Range Interpretation Comments GLUBED (test code = GLUBED) 237 mg/dL 74-106 H Performed by certified thread milling machine set up operator at [facility] BASIC METABOLIC [id number] 05:57:00* Test Item Value Reference Range Interpretation [...] CA) 8.5 mg/dL 8.5-10.1 N BASIC METABOLIC [id number] 05:49:00* Test Item Value Reference Range Interpretation [...] CALCIUM (test code = CA) mg/dL 8.5-10.1 [id number] 20:28:00* Test Item Value Reference Range Interpretation Comments GLUBED (test code = GLUBED) 211 mg/dL 74-106 H Performed by certified thread milling machine set up operator at [facility] [id number] 17:59:00* Test Item Value Reference Range Interpretation Comments GLUBED (test code = GLUBED) 254 mg/dL 74-106 H Performed by certified thread milling machine set up operator at [facility] [id number] 17:59:00* Test Item Value Reference Range Interpretation Comments GLUBED (test code = GLUBED) 259 mg/dL 74-106 H Performed by certified thread milling machine set up operator at [facility] BASIC METABOLIC [id number] 11:13:00* Test Item Value Reference Range Interpretation [...] CA) 8.2 mg/dL 8.5-10.1 L BASIC METABOLIC [id number] 11:08:00* Test Item Value Reference Range Interpretation [...] CALCIUM (test code = CA) mg/dL 8.5-10.1 [id number] 08:42:00* Test Item Value Reference Range Interpretation Comments GLUBED (test code = GLUBED) 195 mg/dL 74-106 H Performed by certified thread milling machine set up operator at [facility] [id number] 20:18:00* Test Item Value Reference Range Interpretation Comments GLUBED (test code = GLUBED) 238 mg/dL 74-106 H Performed by certified thread milling machine set up operator at [facility] [id number] 16:32:00* Test Item Value Reference Range Interpretation Comments GLUBED (test code = GLUBED) 149 mg/dL 74-106 H Performed by certified thread milling machine set up operator at [facility] [id number] 12:15:00* Test Item Value Reference Range Interpretation Comments GLUBED (test code = GLUBED) 189 mg/dL 74-106 H Performed by certified thread milling machine set up operator at [facility] BASIC METABOLIC [id number] 09:00:00* Test Item Value Reference Range Interpretation [...] code = CA) 8.4 mg/dL 8.5-10.1 L [id number] 09:00:00* Test Item Value Reference Range Interpretation Comments MAGNESIUM (test code = MAG) 1.9 mg/dL 1.8-2.4 N [id number] 07:52:00* Test Item Value Reference Range Interpretation Comments GLUBED (test code = GLUBED) 251 mg/dL 74-106 H Performed by certified thread milling machine set up operator at [facility] [id number] 22:38:00* Test Item Value Reference Range Interpretation Comments GLUBED (test code = GLUBED) 157 mg/dL 74-106 H Performed by certified thread milling machine set up operator at [facility] [id number] 21:25:00* Test Item Value Reference Range Interpretation Comments GLUBED (test code = GLUBED) 154 mg/dL 74-106 H Performed by certified thread milling machine set up operator at [facility] [id number] 16:46:00* Test Item Value Reference Range Interpretation Comments GLUBED (test code = GLUBED) 156 mg/dL 74-106 H Performed by certified thread milling machine set up operator at [facility] [id number] 10:44:00* Test Item Value Reference Range Interpretation Comments GLUBED (test code = GLUBED) 240 mg/dL 74-106 H Performed by certified thread milling machine set up operator at [facility] [id number] 07:55:00* Test Item Value Reference Range Interpretation Comments GLUBED (test code = GLUBED) 178 mg/dL 74-106 H Performed by certified thread milling machine set up operator at [facility] BASIC METABOLIC [id number] 06:00:00* Test Item Value Reference Range Interpretation [...] code = CA) 8.4 mg/dL 8.5-10.1 L [id number] 06:00:00* Test Item Value Reference Range Interpretation Comments MAGNESIUM (test code = MAG) 2.0 mg/dL 1.8-2.4 N [id number] 21:31:00* Test Item Value Reference Range Interpretation Comments GLUBED (test code = GLUBED) 461 mg/dL 74-106 H Performed by certified thread milling machine set up operator at [facility] [id number] 15:49:00* Test Item Value Reference Range Interpretation Comments GLUBED (test code = GLUBED) 400 mg/dL 74-106 H Performed by certified thread milling machine set up operator at [facility] [id number] 12:49:00* Test Item Value Reference Range Interpretation Comments GLUBED (test code = GLUBED) 339 mg/dL 74-106 H Performed by certified thread milling machine set up operator at [facility] [id number] 07:41:00* Test Item Value Reference Range Interpretation Comments GLUBED (test code = GLUBED) 328 mg/dL 74-106 H Performed by certified thread milling machine set up operator at [facility] BASIC METABOLIC [id number] 05:42:00* Test Item Value Reference Range Interpretation [...] CA) 8.5 mg/dL 8.5-10.1 N BASIC METABOLIC QGKWB* Test Item Value Reference Range Interpretation Comments [...] CALCIUM (test code = CA) mg/dL 8.5-10.1 [id number] 03:29:00* Test Item Value Reference Range Interpretation Comments GLUBED (test code = GLUBED) 221 mg/dL 74-106 H Performed by certified thread milling machine set up operator at [facility] [id number] 20:20:00* Test Item Value Reference Range Interpretation Comments GLUBED (test code = GLUBED) 406 mg/dL 74-106 H Performed by certified thread milling machine set up operator at [facility] [id number] 18:02:00* Test Item Value Reference Range Interpretation Comments TROPONIN-I (test code = TROPI) <0.015 ng/mL 0-0.045 N COMMENTS TO LOLLYPOP MACHINE OPERATOR: COLLECT 3 HOURS AFTER PREVIOUS [id number] 17:46:00* Test Item Value Reference Range Interpretation Comments MAGNESIUM (test code = MAG) 2.0 mg/dL 1.8-2.4 N [id number] 17:35:00* Test Item Value Reference Range Interpretation Comments GLUBED (test code = GLUBED) 363 mg/dL 74-106 H Performed by certified thread milling machine set up operator at [facility] [id number] 13:25:00* Test Item Value Reference Range Interpretation Comments TROPONIN-I (test code = TROPI) <0.015 ng/mL 0-0.045 N COMMENTS TO LOLLYPOP MACHINE OPERATOR: COLLECT 3 HOURS AFTER PREVIOUS SAMPLEURINALYSIS [id number] 10:05:00* Test Item Value Reference Range Interpretation [...] #/HPF NONE A Urine Source? Clean CatchURINALYSIS [id number] 10:05:00* Test Item Value Reference Range Interpretation [...] A Urine Source? Clean CatchCoronavirus 2019 nCoV [id number] 07:24:00* Test Item Value Reference Range Interpretation Comments Coronavirus 2019 nCoV Bedside (test code = [id number]) Negative Is patient requiring admission or transfer? [...] = MDIFF) NO, ONLY SCAN NEEDED DIFFERENTIAL [id number] 07:22:00* Test Item Value Reference Range Interpretation Comments STAIN ACCEPTABILITY (test code = STN ACCEPTABLE) STAIN ACCEPTABLE POLYCHROMASIA (test code = POLC) 1+ POIKILOCYTOSIS (test code = POIK) 1+ ANISOCYTOSIS (test code = ANISO) 1+ MICROCYTOSIS (test code = MICR) 1+ PLATELET ESTIMATE (test code = PLTEST) DECREASED PLATELET MORPHOLOGY (test code = PLTMORPH) NORMAL B-TYPE NATRIURETIC [id number] 07:19:00* Test Item Value Reference Range Interpretation Comments B-TYPE NATRIURETIC PEPTIDE (test code = BNP) 38.62 pgram/mL 0-100 N BASIC METABOLIC [id number] 06:41:00* Test Item Value Reference Range Interpretation [...] CA) 8.7 mg/dL 8.5-10.1 N HEPATIC FUNCTION [id number] 06:41:00* Test Item Value Reference Range Interpretation [...] reference range due to change in reagent. [id number] 06:41:00* Test Item Value Reference Range Interpretation Comments LIPASE (test code = LIP) 91 U/L 73.0-393.0 N [id number] 06:41:00* Test Item Value Reference Range Interpretation Comments TROPONIN-I (test code = TROPI) <0.015 ng/mL 0-0.045 N PROTHROMBIN [id number] 06:31:00* Test Item Value Reference Range Interpretation [...] (2.5-3.5) IS PATIENT ON ANTICOAGULANTS? NTHROMBOPLASTIN TIME [id number] 06:31:00* Test Item Value Reference Range Interpretation Comments THROMBOPLASTIN TIME PARTIAL (test code = PTT) 30.8 seconds 23.0-37. 0 N IS PATIENT ON ANTICOAGULANTS? NCBC W/AUTO [id number] 06:30:00* Test Item Value Reference Range Interpretation [...] = MDIFF) NO, ONLY SCAN NEEDED DIFFERENTIAL [id number] 06:30:00* Test Item Value Reference Range Interpretation Comments STAIN ACCEPTABILITY (test code = STN ACCEPTABLE) CABOT RINGS (test code = CAB) MORPHOLOGY COMMENT (test code = MOC) PLATELET ESTIMATE (test code = PLTEST) PLATELET MORPHOLOGY (test code = PLTMORPH) BASIC METABOLIC [id number] 06:30:00* Test Item Value Reference Range Interpretation [...] code = CA) mg/dL 8.5-10.1 HEPATIC FUNCTION [id number] 06:30:00* Test Item Value Reference Range Interpretation [...] TOTAL (test code = ALKP) IUnit/L 45-117 [id number] 06:30:00* Test Item Value Reference Range Interpretation Comments LIPASE (test code = LIP) U/L 73.0-393.0 [id number] 06:30:00* Test Item Value Reference Range Interpretation Comments TROPONIN-I (test code = TROPI) ng/mL 0-0.045 CBC W/AUTO [id number] 06:30:00* Test Item Value Reference Range Interpretation [...] = MDIFF) NO, ONLY SCAN NEEDED DIFFERENTIAL [id number] 06:30:00* Test Item Value Reference Range Interpretation Comments STAIN ACCEPTABILITY (test code = STN ACCEPTABLE) CABOT RINGS (test code = CAB) MORPHOLOGY COMMENT (test code = MOC) PLATELET ESTIMATE (test code = PLTEST) PLATELET MORPHOLOGY (test code = PLTMORPH) CBC W/AUTO [id number] 06:30:00* Test Item Value Reference Range Interpretation [...] = MDIFF) NO, ONLY SCAN NEEDED DIFFERENTIAL [id number] 06:30:00* Test Item Value Reference Range Interpretation Comments STAIN ACCEPTABILITY (test code = STN ACCEPTABLE) MORPHOLOGY COMMENT (test code = MOC) PLATELET ESTIMATE (test code = PLTEST) PLATELET MORPHOLOGY (test code = PLTMORPH) CBC W/AUTO [id number] 06:30:00* Test Item Value Reference Range Interpretation [...] = MDIFF) NO, ONLY SCAN NEEDED DIFFERENTIAL [id number] 06:30:00* Test Item Value Reference Range Interpretation Comments STAIN ACCEPTABILITY (test code = STN ACCEPTABLE) CABOT RINGS (test code = CAB) MORPHOLOGY COMMENT (test code = MOC) PLATELET ESTIMATE (test code = PLTEST) PLATELET MORPHOLOGY (test code = PLTMORPH) - XR CHEST 1 [id number] 05:45:00 FAX: Benjamin Francis MD [phone] [place]: St: REG FAX: Leonora Norton [phone] Name: KALYANI TALAVERA [facility] : 1955 Age/S: 64/F [address] [facility] Unit #: [id number] Loc: [place] [address] Phys: Leonora Goins MD Acct: [id number] Dis Date: Status: REG ER PHONE #: [phone] Exam Date: 12/23/2019 05 FAX #: [phone] Reason: SHORTNESS OF BREATH EXAMS: CPT CODE: [id number] XR CHEST 1 V 60433 AFTER HOURS SERVICE ON: 12/23/2019 5:44 AM AP Portable Chest Location Code M12 HISTORY: SHORTNESS OF BREATH FINDINGS: There is pulmonary vascular congestion, slightly more pronounced than 12/16/2019. No consolidation or pleural effusion is seen. There is no pneumothorax. Cardiac silhouette is enlarged. Study is limited by shallow inspiration. IMPRESSION: Slightly increasing pulmonary vascular congestion. Interstitial pneumonia should be excluded clinically. at 8045 Reported and signed by: Cr Hilton M.D. CC: Benjamin Masters; Leonora Goins MD Technologist: SUSAN HAMMONDS JR Trnscrd Date/Time/By: 12/23/2019 (0545) : By: [email or web address] Orig Print D/T: S: 12/23/2019 (1247) PAGE 1 Signed Report B-TYPE NATRIURETIC [id number] 05:44:00* Test Item Value Reference Range Interpretation Comments B-TYPE NATRIURETIC PEPTIDE (test code = BNP) 38.94 pgram/mL 0-100 N Coronavirus 2019 nCoV [id number] 04:56:00* Test Item Value Reference Range Interpretation Comments Coronavirus 2019 nCoV Bedside (test code = [id number]) Negative Is patient requiring admission or transfer? YIndication for rapid COVID-19 testi ng: Mod Clinical SuspicionBASIC METABOLIC [id number] 04:48:00* Test Item Value Reference Range Interpretation [...] code = CA) 8.8 mg/dL 8.5-10.1 N [id number] 04:48:00* Test Item Value Reference Range Interpretation Comments TROPONIN-I (test code = TROPI) <0.015 ng/mL 0-0.045 N CBC W/O [id number] 04:39:00* Test Item Value Reference Range Interpretation [...] MPV) 10.6 fL 6.7-11.0 N BASIC METABOLIC [id number] 04:37:00* Test Item Value Reference Range Interpretation [...] CALCIUM (test code = CA) mg/dL 8.5-10.1 [id number] 04:37:00* Test Item Value Reference Range Interpretation Comments TROPONIN-I (test code = TROPI) ng/mL 0-0.045 - XR CHEST 1 [id number] 03:58:00 FAX: Benjamin Francis MD [phone] [place]: [address] St: REG FAX: Vince Jones DO Name: KALYANI TALAVERA [facility] : 1955 Age/S: 64/F [address] [facility]: [id number] Loc: [place] [address] Phys: Vince Jones DO Acct: [id number] Dis Date: Status: REG ER PHONE #: [phone] Exam Date: 12/16/2019 9225 FAX #: [phone] Reason: Shortness of Breath EXAMS: CPT CODE: [id number] XR CHEST 1 V 52507 EXAM: - XR CHEST 1 V HISTORY: [...] [id number] Orig Print D/T: S : 12/16/2019 (0407) PAGE 1 Signed Report B-TYPE NATRIURETIC [id number] 03:51:00* Test Item Value Reference Range Interpretation Comments B-TYPE NATRIURETIC PEPTIDE (test code = BNP) 93.94 pgram/mL 0-100 N BASIC METABOLIC [id number] 03:42:00* Test Item Value Reference Range Interpretation [...] code = CA) 8.9 mg/dL 8.5-10.1 N [id number] 03:42:00* Test Item Value Reference Range Interpretation Comments TROPONIN-I (test code = TROPI) <0.015 ng/mL 0-0.045 N - XR CHEST 1 [id number] 03:13:00 FAX: Jani Roque [phone] [place]: [facility]: [facility] FAX: Benjamin Francis MD [phone] Name: KALYANI TALAVERA [facility] : 1955 Age/S: 64/F [address] Unit #: [id number] Loc: [place] [address] Phys: Jani Roque MD Acct: [id number] Dis Date: Status: REG ER PHONE #: [phone] Exam Date: 12/12/2019 0233 FAX #: [phone] Reason: Shortness of Breath EXAMS: CPT CODE: [id number] XR CHEST 1 V 27860 - XR CHEST 1 V, 12/12/2019 2:26 [...] 12/12/2019 (315) PAGE 1 Signed Report PROTHROMBIN [id number] 03:11:00* Test Item Value Reference Range Interpretation [...] (2.5-3.5) IS PATIENT ON ANTICOAGULANTS? NTHROMBOPLASTIN TIME [id number] 03:11:00* Test Item Value Reference Range Interpretation Comments THROMBOPLASTIN TIME PARTIAL (test code = PTT) 33.6 seconds 23.0-37. 0 N IS PATIENT ON ANTICOAGULANTS? NBASIC METABOLIC [id number] 03:05:00* Test Item Value Reference Range Interpretation [...] code = CA) 8.9 mg/dL 8.5-10.1 N [id number] 03:05:00* Test Item Value Reference Range Interpretation Comments TROPONIN-I (test code = TROPI) ng/mL 0-0.045 CBC W/O [id number] 02:54:00* Test Item Value Reference Range Interpretation [...] code = MPV) 10.0 fL 6.7-11.0 N [id number] 15:43:00* Test Item Value Reference Range Interpretation Comments GLUBED (test code = GLUBED) 157 mg/dL 74-106 H Performed by certified thread milling machine set up operator at [facility] BASIC METABOLIC [id number] 14:27:00* Test Item Value Reference Range Interpretation [...] CA) 8.5 mg/dL 8.5-10.1 N BASIC METABOLIC [id number] 14:23:00* Test Item Value Reference Range Interpretation [...] code = CA) 8.5 mg/dL 8.5-10.1 N [id number] 11:31:00* Test Item Value Reference Range Interpretation Comments GLUBED (test code = GLUBED) 92 mg/dL 74-106 N Performed by certified thread milling machine set up operator at [facility] [id number] 07:50:00* Test Item Value Reference Range Interpretation Comments GLUBED (test code = GLUBED) 172 mg/dL 74-106 H Performed by certified thread milling machine set up operator at [facility] [id number] 00:32:00* Test Item Value Reference Range Interpretation Comments GLUBED (test code = GLUBED) 71 mg/dL 74-106 L Performed by certified thread milling machine set up operator at [facility] [id number] 21:13:00* Test Item Value Reference Range Interpretation Comments GLUBED (test code = GLUBED) 110 mg/dL 74-106 H Performed by certified thread milling machine set up operator at [facility] [id number] 16:45:00* Test Item Value Reference Range Interpretation Comments GLUBED (test code = GLUBED) 192 mg/dL 74-106 H Performed by certified thread milling machine set [facility]~ BASIC METABOLIC [id number] 15:12:00* Test Item Value Reference Range Interpretation [...] code = CA) 8.3 mg/dL 8.5-10.1 L [id number] 15:12:00* Test Item Value Reference Range Interpretation Comments MAGNESIUM (test code = MAG) 2.2 mg/dL 1.8-2.4 N BASIC METABOLIC [id number] 15:07:00* Test Item Value Reference Range Interpretation [...] CALCIUM (test code = CA) mg/dL 8.5-10.1 [id number] 15:07:00* Test Item Value Reference Range Interpretation Comments MAGNESIUM (test code = MAG) mg/dL 1.8-2.4 [id number] 13:08:00* Test Item Value Reference Range Interpretation Comments GLUBED (test code = GLUBED) 107 mg/dL 74-106 H Performed by certified thread milling machine set [facility]~ [id number] 08:18:00* Test Item Value Reference Range Interpretation Comments GLUBED (test code = GLUBED) 184 mg/dL 74-106 H Performed by certified thread milling machine set [facility] operator [facility]~ [id number] 06:54:00* Test Item Value Reference Range Interpretation Comments GLUBED (test code = GLUBED) 141 mg/dL 74-106 H Performed by certified thread milling machine set up operator at [facility] [id number] 20:59:00* Test Item Value Reference Range Interpretation Comments GLUBED (test code = GLUBED) 100 mg/dL 74-106 N Performed by certified thread milling machine set up operator at [facility] [id number] 17:20:00* Test Item Value Reference Range Interpretation Comments GLUBED (test code = GLUBED) 152 mg/dL 74-106 H Performed by certified thread milling machine set up operator [facility]~ [id number] 16:08:00* Test Item Value Reference Range Interpretation Comments GLUBED (test code = GLUBED) 223 mg/dL 74-106 H Performed by certified thread milling machine set up operator at [facility] [id number] 12:35:00* Test Item Value Reference Range Interpretation Comments GLUBED (test code = GLUBED) 262 mg/dL 74-106 H Performed by certified thread milling machine set up operator at [facility] [id number] 08:13:00* Test Item Value Reference Range Interpretation Comments GLUBED (test code = GLUBED) 86 mg/dL 74-106 N Performed by certified thread milling machine set up operator at [facility] [id number] 23:34:00* Test Item Value Reference Range Interpretation Comments GLUBED (test code = GLUBED) 294 mg/dL 74-106 H Performed by certified thread milling machine set up operator at [facility] [id number] 20:47:00* Test Item Value Reference Range Interpretation Comments GLUBED (test code = GLUBED) 262 mg/dL 74-106 H Performed by certified thread milling machine set up operator at [facility] [id number] 16:20:00* Test Item Value Reference Range Interpretation Comments GLUBED (test code = GLUBED) 62 mg/dL 74-106 L Performed by certified thread milling machine set up operator at [facility] [id number] 12:23:00* Test Item Value Reference Range Interpretation Comments GLUBED (test code = GLUBED) 203 mg/dL 74-106 H Performed by certified thread milling machine set up operator at [facility] [id number] 08:24:00* Test Item Value Reference Range Interpretation Comments GLUBED (test code = GLUBED) 316 mg/dL 74-106 H Performed by certified thread milling machine set up operator at [facility] [id number] 20:06:00* Test Item Value Reference Range Interpretation Comments GLUBED (test code = GLUBED) 416 mg/dL 74-106 H Performed by certified thread milling machine set up operator at [facility] [id number] 15:45:00* Test Item Value Reference Range Interpretation Comments GLUBED (test code = GLUBED) 298 mg/dL 74-106 H Performed by certified thread milling machine set up [facility]~ [id number] 12:18:00* Test Item Value Reference Range Interpretation Comments TROPONIN-I (test code = TROPI) <0.015 ng/mL 0-0.045 N COMMENTS TO LOLLYPOP MACHINE OPERATOR: COLLECT 3 HOURS AFTER PREVIOUS [id number] 07:57:00* Test Item Value Reference Range Interpretation Comments TROPONIN-I (test code = TROPI) <0.015 ng/mL 0-0.045 N COMMENTS TO LOLLYPOP MACHINE OPERATOR: COLLECT 3 HOURS AFTER PREVIOUS SAMPLEB-TYPE NATRIURETIC [id number] 01:27:00* Test Item Value Reference Range Interpretation Comments B-TYPE NATRIURETIC PEPTIDE (test code = BNP) 88.96 pgram/mL 0-100 N BASIC METABOLIC [id number] 00:47:00* Test Item Value Reference Range Interpretation [...] code = CA) 8.8 mg/dL 8.5-10.1 N [id number] 00:47:00* Test Item Value Reference Range Interpretation Comments TROPONIN-I (test code = TROPI) <0.015 ng/mL 0-0.045 N CBC W/O [id number] 00:42:00* Test Item Value Reference Range Interpretation [...] MPV) 10.8 fL 6.7-11.0 N BASIC METABOLIC [id number] 00:36:00* Test Item Value Reference Range Interpretation [...] code = CA) 8.8 mg/dL 8.5-10.1 N [id number] 00:36:00* Test Item Value Reference Range Interpretation Comments TROPONIN-I (test code = TROPI) ng/mL 0-0.045 - XR CHEST 1 [id number] 00:02:00 FAX: Russ Malcolm MD [phone] [place]: St: REG FAX: Benjamin Francis MD [phone] Name: KALYANI TALAVERA [facility] : 1955 Age/S: 64/F [address] [facility] Unit #: [id number] Loc: [place] [address] Phys: Russ Malcolm MD Acct: [id number] Dis Date: Status: REG ER PHONE #: [phone] Exam Date: 12/03/2019 2352 FAX #: [phone] Reason: Shortness of Breath EXAMS: CPT CODE: [id number] XR CHEST 1 V 53399 Exam: AP chest Location: H 12 History: [...] S: 12/04/2019 (0005) PAGE 1 Signed Report [id number] 12:24:00* Test Item Value Reference Range Interpretation Comments GLUBED (test code = GLUBED) 151 mg/dL 74-106 H Performed by certified thread milling machine set [facility] [id number] 08:12:00* Test Item Value Reference Range Interpretation Comments GLUBED (test code = GLUBED) 169 mg/dL 74-106 H Performed by certified thread milling machine set up [facility] BASIC METABOLIC [id number] 06:37:00* Test Item Value Reference Range Interpretation [...] code = CA) 8.9 mg/dL 8.5-10.1 N [id number] 20:42:00* Test Item Value Reference Range Interpretation Comments GLUBED (test code = GLUBED) 223 mg/dL 74-106 H Performed by certified thread milling machine set up operator at [facility] [id number] 16:09:00* Test Item Value Reference Range Interpretation Comments GLUBED (test code = GLUBED) 205 mg/dL 74-106 H Performed by certified thread milling machine set up operator at [facility] [id number] 11:35:00* Test Item Value Reference Range Interpretation Comments GLUBED (test code = GLUBED) 338 mg/dL 74-106 H Performed by certified thread milling machine set up operator at [facility] [id number] 08:04:00* Test Item Value Reference Range Interpretation Comments GLUBED (test code = GLUBED) 240 mg/dL 74-106 H Performed by certified thread milling machine set up operator at [facility] BASIC METABOLIC [id number] 07:18:00* Test Item Value Reference Range Interpretation [...] CA) 8.6 mg/dL 8.5-10.1 N BASIC METABOLIC [id number] 07:14:00* Test Item Value Reference Range Interpretation [...] CALCIUM (test code = CA) mg/dL 8.5-10.1 [id number] 20:28:00* Test Item Value Reference Range Interpretation Comments GLUBED (test code = GLUBED) 343 mg/dL 74-106 H Performed by certified thread milling machine set up operator at [facility] [id number] 16:32:00* Test Item Value Reference Range Interpretation Comments GLUBED (test code = GLUBED) 279 mg/dL 74-106 H Performed by certified thread milling machine set up operator at [facility] [id number] 11:49:00* Test Item Value Reference Range Interpretation Comments GLUBED (test code = GLUBED) 290 mg/dL 74-106 H Performed by certified thread milling machine set up operator at [facility] URINALYSIS [id number] 10:01:00* Test Item Value Reference Range Interpretation [...] FEW #/HPF NONE A Urine Source? MidstreamURINALYSIS [id number] 10:00:00* Test Item Value Reference Range Interpretation [...] = BACU) per HPF NONE Urine Source? [id number] 08:37:00* Test Item Value Reference Range Interpretation Comments GLUBED (test code = GLUBED) 260 mg/dL 74-106 H Performed by certified thread milling machine set up operator at [facility] [id number] 05:57:00* Test Item Value Reference Range Interpretation Comments GLUBED (test code = GLUBED) 253 mg/dL 74-106 H Performed by certified thread milling machine set up operator at [facility] BASIC METABOLIC [id number] 05:52:00* Test Item Value Reference Range Interpretation [...] CA) 8.8 mg/dL 8.5-10.1 N BASIC METABOLIC [id number] 05:49:00* Test Item Value Reference Range Interpretation [...] CALCIUM (test code = CA) mg/dL 8.5-10.1 [id number] 23:00:00* Test Item Value Reference Range Interpretation Comments GLUBED (test code = GLUBED) 108 mg/dL 74-106 H Performed by certified thread milling machine set up operator at [facility] [id number] 22:22:00* Test Item Value Reference Range Interpretation Comments GLUBED (test code = GLUBED) 111 mg/dL 74-106 H Performed by certified thread milling machine set up operator at [facility] URINALYSIS [id number] 20:09:00* Test Item Value Reference Range Interpretation [...] = BACU) FEW #/HPF NONE Urine Source? [id number] 16:18:00* Test Item Value Reference Range Interpretation Comments GLUBED (test code = GLUBED) 196 mg/dL 74-106 H Performed by certified thread milling machine set up operator at [facility] [id number] 12:03:00* Test Item Value Reference Range Interpretation Comments GLUBED (test code = GLUBED) 190 mg/dL 74-106 H Performed by certified thread milling machine set up operator at [facility] [id number] 08:22:00* Test Item Value Reference Range Interpretation Comments GLUBED (test code = GLUBED) 264 mg/dL 74-106 H Performed by certified thread milling machine set up operator [facility]~ BASIC METABOLIC [id number] 07:56:00* Test Item Value Reference Range Interpretation [...] CA) 8.6 mg/dL 8.5-10.1 N BASIC METABOLIC [id number] 05:39:00* Test Item Value Reference Range Interpretation [...] code = CA) mg/dL 8.5-10.1 CBC W/AUTO [id number] 05:19:00* Test Item Value Reference Range Interpretation [...] = MDIFF) NO, ONLY SCAN NEEDED DIFFERENTIAL [id number] 05:19:00* Test Item Value Reference Range Interpretation Comments STAIN ACCEPTABILITY (test code = STN ACCEPTABLE) STAIN ACCEPTABLE ANISOCYTOSIS (test code = ANISO) 2+ MICROCYTOSIS (test code = MICR) 2+ MORPHOLOGY COMMENT (test code = MOC) TEST NOT PERFORMED PLATELET ESTIMATE (test code = PLTEST) DECREASED PLATELET MORPHOLOGY (test code = PLTMORPH) NORMAL CBC W/AUTO [id number] 05:06:00* Test Item Value Reference Range Interpretation [...] = MDIFF) NO, ONLY SCAN NEEDED DIFFERENTIAL [id number] 05:06:00* Test Item Value Reference Range Interpretation Comments STAIN ACCEPTABILITY (test code = STN ACCEPTABLE) MORPHOLOGY COMMENT (test code = MOC) PLATELET ESTIMATE (test code = PLTEST) PLATELET MORPHOLOGY (test code = PLTMORPH) CBC W/AUTO [id number] 05:00:00* Test Item Value Reference Range Interpretation [...] = MDIFF) NO, ONLY SCAN NEEDED DIFFERENTIAL [id number] 05:00:00* Test Item Value Reference Range Interpretation Comments STAIN ACCEPTABILITY (test code = STN ACCEPTABLE) CABOT RINGS (test code = CAB) MORPHOLOGY COMMENT (test code = MOC) PLATELET ESTIMATE (test code = PLTEST) PLATELET MORPHOLOGY (test code = PLTMORPH) CBC W/AUTO [id number] 05:00:00* Test Item Value Reference Range Interpretation [...] = MDIFF) NO, ONLY SCAN NEEDED DIFFERENTIAL [id number] 05:00:00* Test Item Value Reference Range Interpretation Comments STAIN ACCEPTABILITY (test code = STN ACCEPTABLE) MORPHOLOGY COMMENT (test code = MOC) PLATELET ESTIMATE (test code = PLTEST) PLATELET MORPHOLOGY (test code = PLTMORPH) CBC W/AUTO [id number] 05:00:00* Test Item Value Reference Range Interpretation [...] = MDIFF) NO, ONLY SCAN NEEDED DIFFERENTIAL [id number] 05:00:00* Test Item Value Reference Range Interpretation Comments STAIN ACCEPTABILITY (test code = STN ACCEPTABLE) CABOT RINGS (test code = CAB) MORPHOLOGY COMMENT (test code = MOC) PLATELET ESTIMATE (test code = PLTEST) PLATELET MORPHOLOGY (test code = PLTMORPH) [id number] 20:25:00* Test Item Value Reference Range Interpretation Comments GLUBED (test code = GLUBED) 146 mg/dL 74-106 H Performed by certified thread milling machine set up operator at [facility] [id number] 15:10:00* Test Item Value Reference Range Interpretation Comments GLUBED (test code = GLUBED) 266 mg/dL 74-106 H Performed by certified thread milling machine set up operator at [facility] [id number] 11:49:00* Test Item Value Reference Range Interpretation Comments GLUBED (test code = GLUBED) 297 mg/dL 74-106 H Performed by certified thread milling machine set up operator at [facility] [id number] 07:56:00* Test Item Value Reference Range Interpretation Comments GLUBED (test code = GLUBED) 241 mg/dL 74-106 H Performed by certified thread milling machine set up operator at [facility] [id number] 20:49:00* Test Item Value Reference Range Interpretation Comments GLUBED (test code = GLUBED) 277 mg/dL 74-106 H Performed by certified thread milling machine set up operator [facility] [id number] 16:24:00* Test Item Value Reference Range Interpretation Comments GLUBED (test code = GLUBED) 114 mg/dL 74-106 H Performed by certified thread milling machine set up operator [facility] [id number] 12:12:00* Test Item Value Reference Range Interpretation Comments GLUBED (test code = GLUBED) 229 mg/dL 74-106 H Performed by certified thread milling machine set up operator [facility] [id number] 08:05:00* Test Item Value Reference Range Interpretation Comments GLUBED (test code = GLUBED) 359 mg/dL 74-106 H Performed by certified thread milling machine set up operator [facility] CBC W/AUTO [id number] 05:51:00* Test Item Value Reference Range Interpretation [...] = MDIFF) NO, ONLY SCAN NEEDED DIFFERENTIAL [id number] 05:51:00* Test Item Value Reference Range Interpretation [...] (test code = PLTMORPH) NORMAL COMPREHENSIVE METABOLIC [id number] 05:05:00* Test Item Value Reference Range Interpretation [...] due to change in reagent. COMPREHENSIVE METABOLIC [id number] 04:51:00* Test Item Value Reference Range Interpretation [...] code = ALKP) IUnit/L 45-117 CBC W/AUTO [id number] 04:41:00* Test Item Value Reference Range Interpretation [...] = MDIFF) NO, ONLY SCAN NEEDED DIFFERENTIAL [id number] 04:41:00* Test Item Value Reference Range Interpretation Comments STAIN ACCEPTABILITY (test code = STN ACCEPTABLE) CABOT RINGS (test code = CAB) MORPHOLOGY COMMENT (test code = MOC) PLATELET ESTIMATE (test code = PLTEST) PLATELET MORPHOLOGY (test code = PLTMORPH) CBC W/AUTO [id number] 04:41:00* Test Item Value Reference Range Interpretation [...] = MDIFF) NO, ONLY SCAN NEEDED DIFFERENTIAL [id number] 04:41:00* Test Item Value Reference Range Interpretation Comments STAIN ACCEPTABILITY (test code = STN ACCEPTABLE) CABOT RINGS (test code = CAB) MORPHOLOGY COMMENT (test code = MOC) PLATELET ESTIMATE (test code = PLTEST) PLATELET MORPHOLOGY (test code = PLTMORPH) CBC W/AUTO [id number] 04:41:00* Test Item Value Reference Range Interpretation [...] = MDIFF) NO, ONLY SCAN NEEDED DIFFERENTIAL [id number] 04:41:00* Test Item Value Reference Range Interpretation Comments STAIN ACCEPTABILITY (test code = STN ACCEPTABLE) MORPHOLOGY COMMENT (test code = MOC) PLATELET ESTIMATE (test code = PLTEST) PLATELET MORPHOLOGY (test code = PLTMORPH) CBC W/AUTO [id number] 04:41:00* Test Item Value Reference Range Interpretation [...] = MDIFF) NO, ONLY SCAN NEEDED DIFFERENTIAL [id number] 04:41:00* Test Item Value Reference Range Interpretation Comments STAIN ACCEPTABILITY (test code = STN ACCEPTABLE) CABOT RINGS (test code = CAB) MORPHOLOGY COMMENT (test code = MOC) PLATELET ESTIMATE (test code = PLTEST) PLATELET MORPHOLOGY (test code = PLTMORPH) [id number] 20:46:00* Test Item Value Reference Range Interpretation Comments GLUBED (test code = GLUBED) 242 mg/dL 74-106 H Performed by certified thread milling machine set up operator at [facility] [id number] 16:35:00* Test Item Value Reference Range Interpretation Comments GLUBED (test code = GLUBED) 345 mg/dL 74-106 H Performed by certified thread milling machine set up operator [facility] BASIC METABOLIC [id number] 09:05:00* Test Item Value Reference Range Interpretation [...] CA) 8.7 mg/dL 8.5-10.1 N BASIC METABOLIC [id number] 09:00:00* Test Item Value Reference Range Interpretation [...] CALCIUM (test code = CA) mg/dL 8.5-10.1 [id number] 08:20:00* Test Item Value Reference Range Interpretation Comments GLUBED (test code = GLUBED) 349 mg/dL 74-106 H Performed by certified thread milling machine set [facility] CBC W/AUTO [id number] 06:48:00* Test Item Value Reference Range Interpretation [...] = MDIFF) NO, ONLY SCAN NEEDED DIFFERENTIAL [id number] 06:48:00* Test Item Value Reference Range Interpretation Comments STAIN ACCEPTABILITY (test code = STN ACCEPTABLE) STAIN ACCEPTABLE POLYCHROMASIA (test code = POLC) 2+ HYPOCHROMIA (test code = HYPO) 1+ ANISOCYTOSIS (test code = ANISO) 2+ MICROCYTOSIS (test code = MICR) 2+ PLATELET ESTIMATE (test code = PLTEST) DECREASED PLATELET MORPHOLOGY (test code = PLTMORPH) NORMAL COMPREHENSIVE METABOLIC [id number] 05:21:00* Test Item Value Reference Range Interpretation [...] due to change in reagent. COMPREHENSIVE METABOLIC [id number] 05:14:00* Test Item Value Reference Range Interpretation [...] code = ALKP) IUnit/L 45-117 CBC W/AUTO [id number] 05:08:00* Test Item Value Reference Range Interpretation [...] = MDIFF) NO, ONLY SCAN NEEDED DIFFERENTIAL [id number] 05:08:00* Test Item Value Reference Range Interpretation Comments STAIN ACCEPTABILITY (test code = STN ACCEPTABLE) CABOT RINGS (test code = CAB) MORPHOLOGY COMMENT (test code = MOC) PLATELET ESTIMATE (test code = PLTEST) PLATELET MORPHOLOGY (test code = PLTMORPH) CBC W/AUTO [id number] 05:08:00* Test Item Value Reference Range Interpretation [...] = MDIFF) NO, ONLY SCAN NEEDED DIFFERENTIAL [id number] 05:08:00* Test Item Value Reference Range Interpretation Comments STAIN ACCEPTABILITY (test code = STN ACCEPTABLE) CABOT RINGS (test code = CAB) MORPHOLOGY COMMENT (test code = MOC) PLATELET ESTIMATE (test code = PLTEST) PLATELET MORPHOLOGY (test code = PLTMORPH) CBC W/AUTO [id number] 05:08:00* Test Item Value Reference Range Interpretation [...] = MDIFF) NO, ONLY SCAN NEEDED DIFFERENTIAL [id number] 05:08:00* Test Item Value Reference Range Interpretation Comments STAIN ACCEPTABILITY (test code = STN ACCEPTABLE) MORPHOLOGY COMMENT (test code = MOC) PLATELET ESTIMATE (test code = PLTEST) PLATELET MORPHOLOGY (test code = PLTMORPH) CBC W/AUTO [id number] 05:08:00* Test Item Value Reference Range Interpretation [...] = MDIFF) NO, ONLY SCAN NEEDED DIFFERENTIAL [id number] 05:08:00* Test Item Value Reference Range Interpretation Comments STAIN ACCEPTABILITY (test code = STN ACCEPTABLE) CABOT RINGS (test code = CAB) MORPHOLOGY COMMENT (test code = MOC) PLATELET ESTIMATE (test code = PLTEST) PLATELET MORPHOLOGY (test code = PLTMORPH) [id number] 20:40:00* Test Item Value Reference Range Interpretation Comments GLUBED (test code = GLUBED) 160 mg/dL 74-106 H Performed by certified thread milling machine set up operator at [facility] Coronavirus 2019 nCoV [id number] 18:50:00* Test Item Value Reference Range Interpretation Comments Coronavirus 2019 nCoV Bedside (test code = [id number]) Negative [id number] 16:03:00* Test Item Value Reference Range Interpretation Comments GLUBED (test code = GLUBED) 310 mg/dL 74-106 H Performed by certified thread milling machine set [facility] [id number] 11:57:00* Test Item Value Reference Range Interpretation Comments GLUBED (test code = GLUBED) 416 mg/dL 74-106 H Performed by certified thread milling machine set [facility] [id number] 08:07:00* Test Item Value Reference Range Interpretation Comments GLUBED (test code = GLUBED) 356 mg/dL 74-106 H Performed by certified thread milling machine set up operator [facility] BASIC METABOLIC [id number] 04:53:00* Test Item Value Reference Range Interpretation [...] code = CA) 8.5 mg/dL 8.5-10.1 N [id number] 04:53:00* Test Item Value Reference Range Interpretation Comments MAGNESIUM (test code = MAG) 1.9 mg/dL 1.8-2.4 N [id number] 23:55:00* Test Item Value Reference Range Interpretation Comments GLUBED (test code = GLUBED) 391 mg/dL 74-106 H Performed by certified thread milling machine set up operator at [facility] [id number] 20:25:00* Test Item Value Reference Range Interpretation Comments GLUBED (test code = GLUBED) 452 mg/dL 74-106 H Performed by certified thread milling machine set [facility] [id number] 20:15:00* Test Item Value Reference Range Interpretation Comments TROPONIN-I (test code = TROPI) <0.015 ng/mL 0-0.045 N COMMENTS TO LOLLYPOP MACHINE OPERATOR: COLLECT 3 HOURS AFTER PREVIOUS [id number] 17:14:00* Test Item Value Reference Range Interpretation Comments TROPONIN-I (test code = TROPI) <0.015 ng/mL 0-0.045 N COMMENTS TO LOLLYPOP MACHINE OPERATOR: COLLECT 3 HOURS AFTER PREVIOUS [id number] 15:52:00* Test Item Value Reference Range Interpretation Comments GLUBED (test code = GLUBED) 90 mg/dL 74-106 N Performed by certified thread milling machine set up operator at [facility] B-TYPE NATRIURETIC [id number] 10:43:00* Test Item Value Reference Range Interpretation Comments B-TYPE NATRIURETIC PEPTIDE (test code = BNP) 120.97 pgram/mL 0-100 H BASIC METABOLIC [id number] 10:37:00* Test Item Value Reference Range Interpretation [...] code = CA) 8.8 mg/dL 8.5-10.1 N [id number] 10:37:00* Test Item Value Reference Range Interpretation Comments TROPONIN-I (test code = TROPI) <0.015 ng/mL 0-0.045 N PROTHROMBIN [id number] 10:25:00* Test Item Value Reference Range Interpretation [...] (2.5-3.5) IS PATIENT ON ANTICOAGULANTS? NTHROMBOPLASTIN TIME [id number] 10:25:00* Test Item Value Reference Range Interpretation Comments THROMBOPLASTIN TIME PARTIAL (test code = PTT) 22.9 seconds 23.0-37. 0 L IS PATIENT ON ANTICOAGULANTS? NBASIC METABOLIC [id number] 10:22:00* Test Item Value Reference Range Interpretation [...] CALCIUM (test code = CA) mg/dL 8.5-10.1 [id number] 10:22:00* Test Item Value Reference Range Interpretation Comments TROPONIN-I (test code = TROPI) ng/mL 0-0.045 CBC W/O [id number] 10:15:00* Test Item Value Reference Range Interpretation [...] fL 6.7-11.0 N - XR CHEST 1 [id number] 10:04:00 FAX: Hardeep Douglas [phone] [place]: [address] St: [facility] FAX: Benjamin Francis MD [phone] Name: KALYANI TALAVERA [facility] : 1955 Age/S: 64/F [address] [facility] Unit #: [id number] Loc: [place] [address] Phys: Hardeep Ann MD Acct: [id number] Dis Date: Status: REG ER PHONE #: [phone] Exam Date: 11/20/2019928 FAX #: [phone] Reason: Shortness of Breath EXAMS: CPT CODE: [id number] XR CHEST 1 V 01682 REASON FOR EXAM: Shortness of Breath Exam [...] chronic elevation of the right hemidiaphragm. Location: [facility] at 1004 Reported and signed by: Dago Goodson MD CC: Hardeep Ann MD; Benjamin Masters Technologist: SUSAN HAMMONDS JR Trnscrd Date/Time/By: 0 (1004) : By: [email or web address] Orig Print D/T: S: 11/20/2019 (1007) PAGE 1 Signed Report BASIC METABOLIC [id number] 15:36:00* Test Item Value Reference Range Interpretation [...] CA) 8.5 mg/dL 8.5-10.1 N BASIC METABOLIC [id number] 15:32:00* Test Item Value Reference Range Interpretation [...] CALCIUM (test code = CA) mg/dL 8.5-10.1 [id number] 11:56:00* Test Item Value Reference Range Interpretation Comments GLUBED (test code = GLUBED) 268 mg/dL 74-106 H Performed by certified thread milling machine set up operator at [facility] [id number] 08:34:00* Test Item Value Reference Range Interpretation Comments GLUBED (test code = GLUBED) 213 mg/dL 74-106 H Performed by certified thread milling machine set up operator at [facility] COMPREHENSIVE METABOLIC [id number] 06:54:00* Test Item Value Reference Range Interpretation [...] due to change in reagent. COMPREHENSIVE METABOLIC [id number] 06:39:00* Test Item Value Reference Range Interpretation [...] TOTAL (test code = ALKP) IUnit/L 45-117 [id number] 19:31:00* Test Item Value Reference Range Interpretation Comments GLUBED (test code = GLUBED) 307 mg/dL 74-106 H Performed by certified thread milling machine set up operator at [facility] BASIC METABOLIC [id number] 16:35:00* Test Item Value Reference Range Interpretation [...] CA) 8.9 mg/dL 8.5-10.1 N BASIC METABOLIC [id number] 16:30:00* Test Item Value Reference Range Interpretation [...] CALCIUM (test code = CA) mg/dL 8.5-10.1 [id number] 15:31:00* Test Item Value Reference Range Interpretation Comments GLUBED (test code = GLUBED) 155 mg/dL 74-106 H Performed by certified thread milling machine set up operator at [facility] [id number] 11:44:00* Test Item Value Reference Range Interpretation Comments GLUBED (test code = GLUBED) 180 mg/dL 74-106 H Performed by certified thread milling machine set up operator at [facility] [id number] 08:05:00* Test Item Value Reference Range Interpretation Comments GLUBED (test code = GLUBED) 236 mg/dL 74-106 H Performed by certified thread milling machine set up operator at [facility] COMPREHENSIVE METABOLIC [id number] 04:48:00* Test Item Value Reference Range Interpretation [...] due to change in reagent. COMPREHENSIVE METABOLIC [id number] 04:35:00* Test Item Value Reference Range Interpretation [...] TOTAL (test code = ALKP) IUnit/L 45-117 [id number] 20:09:00* Test Item Value Reference Range Interpretation Comments GLUBED (test code = GLUBED) 126 mg/dL 74-106 H Performed by certified thread milling machine set up operator at [facility] [id number] 15:38:00* Test Item Value Reference Range Interpretation Comments GLUBED (test code = GLUBED) 241 mg/dL 74-106 H Performed by certified thread milling machine set up operator at [facility] [id number] 11:39:00* Test Item Value Reference Range Interpretation Comments GLUBED (test code = GLUBED) 406 mg/dL 74-106 H Performed by certified thread milling machine set up operator at [facility] [id number] 07:56:00* Test Item Value Reference Range Interpretation Comments GLUBED (test code = GLUBED) 318 mg/dL 74-106 H Performed by certified thread milling machine set up operator at [facility] COMPREHENSIVE METABOLIC [id number] 04:33:00* Test Item Value Reference Range Interpretation [...] due to change in reagent. COMPREHENSIVE METABOLIC [id number] 04:24:00* Test Item Value Reference Range Interpretation [...] TOTAL (test code = ALKP) IUnit/L 45-117 [id number] 22:02:00* Test Item Value Reference Range Interpretation Comments GLUBED (test code = GLUBED) 108 mg/dL 74-106 H Performed by certified thread milling machine set up operator at [facility] [id number] 19:58:00* Test Item Value Reference Range Interpretation Comments GLUBED (test code = GLUBED) 117 mg/dL 74-106 H Performed by certified thread milling machine set up operator at [facility] [id number] 11:46:00* Test Item Value Reference Range Interpretation Comments GLUBED (test code = GLUBED) 277 mg/dL 74-106 H Performed by certified thread milling machine set up operator at [facility] [id number] 11:46:00* Test Item Value Reference Range Interpretation Comments GLUBED (test code = GLUBED) 286 mg/dL 74-106 H Performed by certified thread milling machine set up operator at [facility] [id number] 04:37:00* Test Item Value Reference Range Interpretation Comments FERRITIN (test code = DESI) 14 ng/mL 8-388 N FE W/TOTAL IRON BINDING CAP.2019-10-21 04:28:00* Test Item Value Reference Range Interpretation Comments SERUM IRON (test code = IRON) 65 ug/dL 50-175 N TOTAL IRON BINDING CAPACITY (test code = TIBC) 532 mcg/dL 250-450 H IRON SATURATION (test code = FESAT) 12.22 % 13-45 L [id number] 03:52:00* Test Item Value Reference Range Interpretation Comments GLUBED (test code = GLUBED) 287 mg/dL 74-106 H Performed by certified thread milling machine set [facility]~ [id number] 20:27:00* Test Item Value Reference Range Interpretation Comments GLUBED (test code = GLUBED) 132 mg/dL 74-106 H Performed by certified thread milling machine set [facility] [id number] 17:34:00* Test Item Value Reference Range Interpretation Comments GLUBED (test code = GLUBED) 167 mg/dL 74-106 H Performed by certified thread milling machine set up operator at [facility] [id number] 12:06:00* Test Item Value Reference Range Interpretation Comments GLUBED (test code = GLUBED) 271 mg/dL 74-106 H Performed by certified thread milling machine set up operator at [facility] - XR CHEST 1 [id number] 08:35:00 FAX: Taz Mccormick MD [phone] [place]: St: ADM FAX: Benjamin Francis MD [phone] Name: KALYANI TALAVERA [facility] : 1955 Age/S: 64/F [address] [facility] Unit #: [id number] Loc: V.4006 [place] [address] Phys: Taz Bravo MD Acct: [id number] Dis Date: Status: ADM IN PHONE #: [phone] Exam Date: 10/20/2019 08 FAX #: [phone] Reason: chf EXAMS: CPT CODE: [id number] XR CHEST 1 V 22808 CLINICAL HISTORY: chf TECHNIQUE: AP chest x-ray [...] Technologist: TAWANNA HURTADO RT(R) Trnscrd Date/Time/By: 10/20/2019 (0884) : By: aniyah [email or web address] Orig Print D/T: S: 10/20/2019 (0766) P AGE 2 Signed Report GLUBED 2019-10-20 08:30:00* Test Item Value Reference Range Interpretation Comments GLUBED (test code = GLUBED) 234 mg/dL 74-106 H Performed by certified thread milling machine set up operator at [facility] CBC W/AUTO [id number] 05:46:00* Test Item Value Reference Range Interpretation [...] = MDIFF) NO, ONLY SCAN NEEDED DIFFERENTIAL [id number] 05:46:00* Test Item Value Reference Range Interpretation [...] (test code = PLTMORPH) NORMAL BASIC METABOLIC [id number] 05:36:00* Test Item Value Reference Range Interpretation [...] CA) 9.4 mg/dL 8.5-10.1 N BASIC METABOLIC [id number] 05:30:00* Test Item Value Reference Range Interpretation [...] code = CA) mg/dL 8.5-10.1 CBC W/AUTO [id number] 05:11:00* Test Item Value Reference Range Interpretation [...] = MDIFF) NO, ONLY SCAN NEEDED DIFFERENTIAL [id number] 05:11:00* Test Item Value Reference Range Interpretation Comments STAIN ACCEPTABILITY (test code = STN ACCEPTABLE) CABOT RINGS (test code = CAB) MORPHOLOGY COMMENT (test code = MOC) PLATELET ESTIMATE (test code = PLTEST) PLATELET MORPHOLOGY (test code = PLTMORPH) CBC W/AUTO [id number] 05:11:00* Test Item Value Reference Range Interpretation [...] = MDIFF) NO, ONLY SCAN NEEDED DIFFERENTIAL [id number] 05:11:00* Test Item Value Reference Range Interpretation Comments STAIN ACCEPTABILITY (test code = STN ACCEPTABLE) CABOT RINGS (test code = CAB) MORPHOLOGY COMMENT (test code = MOC) PLATELET ESTIMATE (test code = PLTEST) PLATELET MORPHOLOGY (test code = PLTMORPH) CBC W/AUTO [id number] 05:11:00* Test Item Value Reference Range Interpretation [...] = MDIFF) NO, ONLY SCAN NEEDED DIFFERENTIAL [id number] 05:11:00* Test Item Value Reference Range Interpretation Comments STAIN ACCEPTABILITY (test code = STN ACCEPTABLE) MORPHOLOGY COMMENT (test code = MOC) PLATELET ESTIMATE (test code = PLTEST) PLATELET MORPHOLOGY (test code = PLTMORPH) CBC W/AUTO [id number] 05:11:00* Test Item Value Reference Range Interpretation [...] = MDIFF) NO, ONLY SCAN NEEDED DIFFERENTIAL [id number] 05:11:00* Test Item Value Reference Range Interpretation Comments STAIN ACCEPTABILITY (test code = STN ACCEPTABLE) CABOT RINGS (test code = CAB) MORPHOLOGY COMMENT (test code = MOC) PLATELET ESTIMATE (test code = PLTEST) PLATELET MORPHOLOGY (test code = PLTMORPH) [id number] 19:55:00* Test Item Value Reference Range Interpretation Comments GLUBED (test code = GLUBED) 245 mg/dL 74-106 H Performed by certified thread milling machine set up operator at [facility] [id number] 17:25:00* Test Item Value Reference Range Interpretation Comments GLUBED (test code = GLUBED) 316 mg/dL 74-106 H Performed by certified thread milling machine set up operator at [facility] [id number] 12:03:00* Test Item Value Reference Range Interpretation Comments GLUBED (test code = GLUBED) 266 mg/dL 74-106 H Performed by certified thread milling machine set up operator at [facility] [id number] 11:55:00* Test Item Value Reference Range Interpretation Comments GLUBED (test code = GLUBED) 300 mg/dL 74-106 H Performed by certified thread milling machine set up operator at [facility] COMPREHENSIVE METABOLIC [id number] 04:36:00* Test Item Value Reference Range Interpretation [...] due to change in reagent. COMPREHENSIVE METABOLIC [id number] 04:25:00* Test Item Value Reference Range Interpretation [...] TOTAL (test code = ALKP) IUnit/L 45-117 [id number] 20:30:00* Test Item Value Reference Range Interpretation Comments GLUBED (test code = GLUBED) 202 mg/dL 74-106 H Performed by certified thread milling machine set [facility]~ [id number] 18:41:00* Test Item Value Reference Range Interpretation Comments GLUBED (test code = GLUBED) 229 mg/dL 74-106 H Performed by certified thread milling machine set up operator at [facility] [id number] 15:56:00* Test Item Value Reference Range Interpretation Comments GLUBED (test code = GLUBED) 271 mg/dL 74-106 H Performed by certified thread milling machine set up operator at [facility] [id number] 15:00:00* Test Item Value Reference Range Interpretation Comments GLYCOSYLATED HEMOGLOBIN (HA1C) (test code = GLYHGB) 9.6 % HbA1 SUGGESTED DIAGNOSIS: HbA1C (%) Diabetic >6.4Prediabetes 5.7 - 6.4Normal <5.7 ESTIMATED AVERAGE GLUCOSE (test code = EAG) 229 MG/DL [id number] 11:26:00* Test Item Value Reference Range Interpretation Comments GLUBED (test code = GLUBED) 372 mg/dL 74-106 H Performed by certified thread milling machine set up operator at [facility] - XR CHEST 1 [id number] 08:31:00 FAX: Taz Mccormick MD [phone] [place]: St: [facility] FAX: Benjamin Francis MD [phone] Name: KALYANI TALAVERA [facility] : 1955 Age/S: 64/F [address] Unit #: [id number] Loc: V.3072 [place] [address] Phys: Taz Bravo MD Acct: [id number] Dis Date: Status: ADM IN PHONE #: [phone] Exam Date: 10/18/2019 0801 FAX #: [phone] Reason: chf EXAMS: CPT CODE: [id number] XR CHEST 1 V 47398 REASON FOR EXAM: chf Exam Order Date: [...] limits. IMPRESSION: No acute cardiopulmonary process. Location: [facility] Electronic ally Signed by Dago Goodson MD on 10/18/2019 at 0831 Repo rted and signed by: Dago Goodson MD CC: Taz Bravo MD; Benjamin Masters Technologist: SUSAN HAMMONDS JR Trnscrd Date/Time/By: 10/18/2019 (0831) : By: [email or web address] Orig Print D/T: S: 10/18/2019 (0834) PAGE 1 Signed Report [id number] 07:40:00 * Test Item Value Reference Range Interpretation Comments GLUBED (test code = GLUBED) 391 mg/dL 74-106 H Performed by certified thread milling machine set up operator at [facility] COMPREHENSIVE METABOLIC [id number] 04:54:00* Test Item Value Reference Range Interpretation [...] reference range due to change in reagent. [id number] 04:54:00* Test Item Value Reference Range Interpretation Comments MAGNESIUM (test code = MAG) 1.8 mg/dL 1.8-2.4 N COMPREHENSIVE METABOLIC [id number] 04:45:00* Test Item Value Reference Range Interpretation [...] TOTAL (test code = ALKP) IUnit/L 45-117 [id number] 04:45:00* Test Item Value Reference Range Interpretation Comments MAGNESIUM (test code = MAG) mg/dL 1.8-2.4 CBC W/AUTO [id number] 04:28:00* Test Item Value Reference Range Interpretation [...] code = NRBC#) 0.00 K/mm3 0.0-0.1 N [id number] 23:49:00* Test Item Value Reference Range Interpretation Comments TROPONIN-I (test code = TROPI) 0.024 ng/mL 0-0.045 N COMMENTS TO LOLLYPOP MACHINE OPERATOR: COLLECT 3 HOURS AFTER PREVIOUS [id number] 20:30:00* Test Item Value Reference Range Interpretation Comments GLUBED (test code = GLUBED) 288 mg/dL 74-106 H Performed by certified thread milling machine set up operator at [facility] [id number] 19:35:00* Test Item Value Reference Range Interpretation Comments TROPONIN-I (test code = TROPI) 0.027 ng/mL 0-0.045 N COMMENTS TO LOLLYPOP MACHINE OPERATOR: COLLECT 3 HOURS AFTER PREVIOUS SAMPLE- CT CHEST W/O [id number] 18:12:00 Name: KALYANI TALAVERA [facility] : 1955 Age/S: 64 / F [address] Unit #: [id number] Loc: [place] [address] Phys: Pravin Christianson MD Acct: [id number] Dis Date: Status: ADM IN PHONE #: [phone] Exam Date: 10/17/2019 1800 FAX #: [phone] Reason: Dyspnea, Crackles in bases EXAMS: CPT CODE: [id number] CT CHEST W/O CONTRAST 41149 HISTORY: Dyspnea and crackles in the base. [...] 10/17/2019 (1811) t.SDR.TH4 PAGE 1 Signed Report [id number] 17:25:00* Test Item Value Reference Range Interpretation Comments MAGNESIUM (test code = MAG) 1.8 mg/dL 1.8-2.4 N [id number] 16:20:00* Test Item Value Reference Range Interpretation Comments GLUBED (test code = GLUBED) 221 mg/dL 74-106 H Performed by certified thread milling machine set up operator at [facility] B-TYPE NATRIURETIC [id number] 10:56:00* Test Item Value Reference Range Interpretation Comments B-TYPE NATRIURETIC PEPTIDE (test code = BNP) 58.67 pgram/mL 0-100 N BASIC METABOLIC [id number] 10:25:00* Test Item Value Reference Range Interpretation [...] code = CA) 8.6 mg/dL 8.5-10.1 N [id number] 10:25:00* Test Item Value Reference Range Interpretation Comments TROPONIN-I (test code = TROPI) 0.025 ng/mL 0-0.045 N BASIC METABOLIC [id number] 10:15:00* Test Item Value Reference Range Interpretation [...] CALCIUM (test code = CA) mg/dL 8.5-10.1 [id number] 10:15:00* Test Item Value Reference Range Interpretation Comments TROPONIN-I (test code = TROPI) ng/mL 0-0.045 CBC W/O [id number] 09:54:00* Test Item Value Reference Range Interpretation [...] fL 6.7-11.0 N - XR CHEST 1 [id number] 09:54:00 FAX: Patel Kulkarni MD [place]: B St: PRE FAX: Benjamin Francis MD [phone] Name: KALYANI TALAVERA [facility] : 1955 Age/S: 64/F [address] [facility] Unit #: [id number] Loc: [place] [address] Phys: Patel Kulkarni MD Acct: [id number] Dis Date: Status: PRE ER PHONE #: [phone] Exam Date: 10/17/2019 0946 FAX #: [phone] Reason: Shortness of Breath EXAMS: CPT CODE: [id number] XR CHEST 1 V 33731 CLINICAL HISTORY: Shortness of Breath TECHNIQUE: AP [...] By: [email or web address] Orig Print D/T: S: 10/17/2019 (0994) PAGE 1 Signed Report [id number] 15:30:00* Test Item Value Reference Range Interpretation Comments GLUBED (test code = GLUBED) 138 mg/dL 74-106 H Performed by certified thread milling machine set up operator at [facility] COMPREHENSIVE METABOLIC [id number] 14:28:00* Test Item Value Reference Range Interpretation [...] due to change in reagent. COMPREHENSIVE METABOLIC [id number] 14:18:00* Test Item Value Reference Range Interpretation [...] code = ALKP) IUnit/L 45-117 CBC W/AUTO [id number] 13:43:00* Test Item Value Reference Range Interpretation [...] NRBC#) 0.02 K/mm3 0.0-0.1 N CBC W/AUTO [id number] 13:37:00* Test Item Value Reference Range Interpretation [...] # (test code = BA#) K/mm3 0.0-0.2 [id number] 12:24:00* Test Item Value Reference Range Interpretation Comments GLUBED (test code = GLUBED) 142 mg/dL 74-106 H Performed by certified thread milling machine set up operator at [facility] [id number] 07:57:00* Test Item Value Reference Range Interpretation Comments GLUBED (test code = GLUBED) 221 mg/dL 74-106 H Performed by certified thread milling machine set up operator at [facility] - XR CHEST 1 [id number] 21:23:00 FAX: Alfa Moscoso MD [phone] [place]: B St: ADM FAX: Benjamin Fracnis MD [phone] Name: KALYANI TALAVERA [facility] : 1955 Age/S: 64/F [address] Unit #: [id number] Loc: V.3110 [place] [address] Phys: Alfa Cassidy MD Acct: [id number] Dis Date: Status: ADM IN PHONE #: [phone] Exam Date: 09/07/20192048 FAX #: [phone] Reason: ACUTE CHF EXAMS: CPT CODE: [id number] XR CHEST 1 V 84641 CLINICAL HISTORY: ACUTE CHF TECHNIQUE: AP chest [...] S: 09/07/2019 (2125) PAGE 1 Signed Report [id number] 20:44:00* Test Item Value Reference Range Interpretation Comments GLUBED (test code = GLUBED) 176 mg/dL 74-106 H Performed by certified thread milling machine set up operator at [facility] CBC W/AUTO [id number] 17:54:00* Test Item Value Reference Range Interpretation [...] = MDIFF) NO, ONLY SCAN NEEDED DIFFERENTIAL [id number] 17:54:00* Test Item Value Reference Range Interpretation Comments STAIN ACCEPTABILITY (test code = STN ACCEPTABLE) STAIN ACCEPTABLE ANISOCYTOSIS (test code = ANISO) 1+ PLATELET ESTIMATE (test code = PLTEST) DECREASED PLATELET MORPHOLOGY (test code = PLTMORPH) NORMAL COMPREHENSIVE METABOLIC [id number] 17:01:00* Test Item Value Reference Range Interpretation [...] reference range due to change in reagent. [id number] 17:00:00* Test Item Value Reference Range Interpretation Comments GLUBED (test code = GLUBED) 270 mg/dL 74-106 H Performed by certified thread milling machine set up operator at [facility] B-TYPE NATRIURETIC [id number] 17:00:00* Test Item Value Reference Range Interpretation Comments B-TYPE NATRIURETIC PEPTIDE (test code = BNP) 33.15 pgram/mL 0-100 N CBC W/AUTO [id number] 16:55:00* Test Item Value Reference Range Interpretation [...] = MDIFF) NO, ONLY SCAN NEEDED DIFFERENTIAL [id number] 16:55:00* Test Item Value Reference Range Interpretation Comments STAIN ACCEPTABILITY (test code = STN ACCEPTABLE) CABOT RINGS (test code = CAB) MORPHOLOGY COMMENT (test code = MOC) PLATELET ESTIMATE (test code = PLTEST) PLATELET MORPHOLOGY (test code = PLTMORPH) CBC W/AUTO [id number] 16:55:00* Test Item Value Reference Range Interpretation [...] = MDIFF) NO, ONLY SCAN NEEDED DIFFERENTIAL [id number] 16:55:00* Test Item Value Reference Range Interpretation Comments STAIN ACCEPTABILITY (test code = STN ACCEPTABLE) CABOT RINGS (test code = CAB) MORPHOLOGY COMMENT (test code = MOC) PLATELET ESTIMATE (test code = PLTEST) PLATELET MORPHOLOGY (test code = PLTMORPH) CBC W/AUTO [id number] 16:55:00* Test Item Value Reference Range Interpretation [...] = MDIFF) NO, ONLY SCAN NEEDED DIFFERENTIAL [id number] 16:55:00* Test Item Value Reference Range Interpretation Comments STAIN ACCEPTABILITY (test code = STN ACCEPTABLE) MORPHOLOGY COMMENT (test code = MOC) PLATELET ESTIMATE (test code = PLTEST) PLATELET MORPHOLOGY (test code = PLTMORPH) CBC W/AUTO [id number] 16:55:00* Test Item Value Reference Range Interpretation [...] = MDIFF) NO, ONLY SCAN NEEDED DIFFERENTIAL [id number] 16:55:00* Test Item Value Reference Range Interpretation Comments STAIN ACCEPTABILITY (test code = STN ACCEPTABLE) CABOT RINGS (test code = CAB) MORPHOLOGY COMMENT (test code = MOC) PLATELET ESTIMATE (test code = PLTEST) PLATELET MORPHOLOGY (test code = PLTMORPH) CBC W/AUTO [id number] 16:49:00* Test Item Value Reference Range Interpretation [...] code = BA#) K/mm3 0.0-0.2 COMPREHENSIVE METABOLIC [id number] 16:49:00* Test Item Value Reference Range Interpretation [...] TOTAL (test code = ALKP) IUnit/L 45-117 [id number] 12:09:00* Test Item Value Reference Range Interpretation Comments GLUBED (test code = GLUBED) 219 mg/dL 74-106 H Performed by certified thread milling machine set up operator at [facility] [id number] 08:21:00* Test Item Value Reference Range Interpretation Comments GLUBED (test code = GLUBED) 249 mg/dL 74-106 H Performed by certified thread milling machine set up operator at [facility] BASIC METABOLIC [id number] 06:22:00* Test Item Value Reference Range Interpretation [...] code = CA) 8.6 mg/dL 8.5-10.1 N [id number] 20:04:00* Test Item Value Reference Range Interpretation Comments GLUBED (test code = GLUBED) 282 mg/dL 74-106 H Performed by certified thread milling machine set up operator at [facility] [id number] 17:10:00* Test Item Value Reference Range Interpretation Comments GLUBED (test code = GLUBED) 210 mg/dL 74-106 H Performed by certified thread milling machine set up operator at [facility] [id number] 11:31:00* Test Item Value Reference Range Interpretation Comments GLUBED (test code = GLUBED) 179 mg/dL 74-106 H Performed by certified thread milling machine set up operator at [facility] BASIC METABOLIC [id number] 09:04:00* Test Item Value Reference Range Interpretation [...] CA) 8.7 mg/dL 8.5-10.1 N BASIC METABOLIC [id number] 08:59:00* Test Item Value Reference Range Interpretation [...] CALCIUM (test code = CA) mg/dL 8.5-10.1 [id number] 08:24:00* Test Item Value Reference Range Interpretation Comments GLUBED (test code = GLUBED) 201 mg/dL 74-106 H Performed by certified thread milling machine set up operator at [facility] [id number] 21:07:00* Test Item Value Reference Range Interpretation Comments GLUBED (test code = GLUBED) 185 mg/dL 74-106 H Performed by certified thread milling machine set up operator at [facility] [id number] 20:21:00* Test Item Value Reference Range Interpretation Comments GLUBED (test code = GLUBED) 168 mg/dL 74-106 H Performed by certified thread milling machine set up operator at [facility] [id number] 17:21:00* Test Item Value Reference Range Interpretation Comments GLUBED (test code = GLUBED) 104 mg/dL 74-106 N Performed by certified thread milling machine set up operator at [facility] [id number] 11:54:00* Test Item Value Reference Range Interpretation Comments GLUBED (test code = GLUBED) 207 mg/dL 74-106 H Performed by certified thread milling machine set up operator at [facility] [id number] 10:26:00* Test Item Value Reference Range Interpretation Comments GLUBED (test code = GLUBED) 266 mg/dL 74-106 H Performed by certified thread milling machine set up operator at [facility] BASIC METABOLIC [id number] 08:10:00* Test Item Value Reference Range Interpretation [...] CA) 8.5 mg/dL 8.5-10.1 N BASIC METABOLIC [id number] 08:01:00* Test Item Value Reference Range Interpretation [...] CALCIUM (test code = CA) mg/dL 8.5-10.1 [id number] 20:13:00* Test Item Value Reference Range Interpretation Comments GLUBED (test code = GLUBED) 280 mg/dL 74-106 H Performed by certified thread milling machine set up operator at [facility] URINALYSIS [id number] 18:55:00* Test Item Value Reference Range Interpretation [...] #/LPF FEW BY V.LAB.THSPECIMEN COMMENTS: urineUrine Source? [id number] 16:55:00* Test Item Value Reference Range Interpretation Comments GLUBED (test code = GLUBED) 151 mg/dL 74-106 H Performed by certified thread milling machine set up operator at [facility] [id number] 15:39:00* Test Item Value Reference Range Interpretation Comments GLUBED (test code = GLUBED) 264 mg/dL 74-106 H Performed by certified thread milling machine set up operator at [facility] CBC W/AUTO [id number] 11:09:00* Test Item Value Reference Range Interpretation [...] = MDIFF) NO, ONLY SCAN NEEDED DIFFERENTIAL [id number] 11:09:00* Test Item Value Reference Range Interpretation Comments STAIN ACCEPTABILITY (test code = STN ACCEPTABLE) STAIN ACCEPTABLE HYPOCHROMIA (test code = HYPO) 1+ ANISOCYTOSIS (test code = ANISO) 1+ PLATELET ESTIMATE (test code = PLTEST) SLIGHTLY DECREASED PLATELET MORPHOLOGY (test code = PLTMORPH) NORMAL CBC W/AUTO [id number] 10:19:00* Test Item Value Reference Range Interpretation [...] = MDIFF) NO, ONLY SCAN NEEDED DIFFERENTIAL [id number] 10:19:00* Test Item Value Reference Range Interpretation Comments STAIN ACCEPTABILITY (test code = STN ACCEPTABLE) MORPHOLOGY COMMENT (test code = MOC) PLATELET ESTIMATE (test code = PLTEST) PLATELET MORPHOLOGY (test code = PLTMORPH) CBC W/AUTO [id number] 10:15:00* Test Item Value Reference Range Interpretation [...] = MDIFF) NO, ONLY SCAN NEEDED DIFFERENTIAL [id number] 10:15:00* Test Item Value Reference Range Interpretation Comments STAIN ACCEPTABILITY (test code = STN ACCEPTABLE) CABOT RINGS (test code = CAB) MORPHOLOGY COMMENT (test code = MOC) PLATELET ESTIMATE (test code = PLTEST) PLATELET MORPHOLOGY (test code = PLTMORPH) CBC W/AUTO [id number] 10:15:00* Test Item Value Reference Range Interpretation [...] = MDIFF) NO, ONLY SCAN NEEDED DIFFERENTIAL [id number] 10:15:00* Test Item Value Reference Range Interpretation Comments STAIN ACCEPTABILITY (test code = STN ACCEPTABLE) MORPHOLOGY COMMENT (test code = MOC) PLATELET ESTIMATE (test code = PLTEST) PLATELET MORPHOLOGY (test code = PLTMORPH) CBC W/AUTO [id number] 10:15:00* Test Item Value Reference Range Interpretation [...] = MDIFF) NO, ONLY SCAN NEEDED DIFFERENTIAL [id number] 10:15:00* Test Item Value Reference Range Interpretation Comments STAIN ACCEPTABILITY (test code = STN ACCEPTABLE) CABOT RINGS (test code = CAB) MORPHOLOGY COMMENT (test code = MOC) PLATELET ESTIMATE (test code = PLTEST) PLATELET MORPHOLOGY (test code = PLTMORPH) CBC W/AUTO [id number] 10:00:00* Test Item Value Reference Range Interpretation [...] # (test code = BA#) K/mm3 0.0-0.2 [id number] 08:44:00* Test Item Value Reference Range Interpretation Comments GLUBED (test code = GLUBED) 305 mg/dL 74-106 H Performed by certified thread milling machine set up operator at [facility] BASIC METABOLIC [id number] 08:31:00* Test Item Value Reference Range Interpretation [...] code = CA) 8.0 mg/dL 8.5-10.1 L [id number] 20:37:00* Test Item Value Reference Range Interpretation Comments GLUBED (test code = GLUBED) 200 mg/dL 74-106 H Performed by certified thread milling machine set up operator at [facility] - XR CHEST 1 [id number] 18:15:00 FAX: Benjamin Francis MD [phone] [place]: St: ADM Name: KALYANI CATES [facility] : [birth year] Age/S: 64/F [address] [facility] Unit #: [id number] Loc: [address] [address] Phys: Benjamin Masters MD Acct: [id number] Dis Date: Status: ADM IN PHONE #: [phone] Exam Date: 09/03/2019 1615 FAX #: [phone] Reason: CHF EXAMS: CPT CODE: [id number] XR CHEST 1 V 54668 EXAM: Chest x-ray, one view; INFORMATION: CHF, hypoglycemia; IMPRESSION: 1. Mild cardiomegaly; otherwise, no evidence of active cardiopulmonary disease. 2. No significant change compared with a study from August 28, 2019. Location code: [facility] at 1815 Reported and signed by: Jc Bravo M.D. CC: Benjamin Masters Technologist: WENDIE COMER RT(R); Jacquie CLEMENTS(R) Trnscrd Date/Time/By: 09/03/2019 (1814) : By: Dannielle Orig Print D/T: S: 09/03/2019 (1817) PAGE 1 Signed Report [id number] 17:28:00* Test Item Value Reference Range Interpretation Comments GLUBED (test code = GLUBED) 103 mg/dL 74-106 N Performed by certified thread milling machine set up operator at [facility] [id number] 12:43:00* Test Item Value Reference Range Interpretation Comments GLUBED (test code = GLUBED) 201 mg/dL 74-106 H Performed by certified thread milling machine set up operator at [facility] B-TYPE NATRIURETIC [id number] 12:25:00* Test Item Value Reference Range Interpretation Comments B-TYPE NATRIURETIC PEPTIDE (test code = BNP) 20.62 pgram/mL 0-100 N SPECIMEN COMMENTS: add to AM labsBASIC METABOLIC [id number] 09:49:00* Test Item Value Reference Range Interpretation [...] code = CA) 8.3 mg/dL 8.5-10.1 L [id number] 08:23:00* Test Item Value Reference Range Interpretation Comments GLUBED (test code = GLUBED) 242 mg/dL 74-106 H Performed by certified thread milling machine set up operator at [facility] [id number] 20:51:00* Test Item Value Reference Range Interpretation Comments GLUBED (test code = GLUBED) 155 mg/dL 74-106 H Performed by certified thread milling machine set up operator at [facility] [id number] 16:25:00* Test Item Value Reference Range Interpretation Comments GLUBED (test code = GLUBED) 245 mg/dL 74-106 H Performed by certified thread milling machine set up operator at [facility] [id number] 14:55:00* Test Item Value Reference Range Interpretation Comments MAGNESIUM (test code = MAG) 1.8 mg/dL 1.8-2.4 N COMPREHENSIVE METABOLIC [id number] 13:39:00* Test Item Value Reference Range Interpretation [...] due to change in reagent. COMPREHENSIVE METABOLIC [id number] 13:31:00* Test Item Value Reference Range Interpretation [...] code = ALKP) IUnit/L 45-117 CBC W/AUTO [id number] 12:41:00* Test Item Value Reference Range Interpretation [...] NRBC#) 0.00 K/mm3 0.0-0.1 N CBC W/AUTO [id number] 12:32:00* Test Item Value Reference Range Interpretation [...] # (test code = BA#) K/mm3 0.0-0.2 [id number] 11:40:00* Test Item Value Reference Range Interpretation Comments GLUBED (test code = GLUBED) 252 mg/dL 74-106 H Performed by certified thread milling machine set up operator at [facility] [id number] 08:02:00* Test Item Value Reference Range Interpretation Comments GLUBED (test code = GLUBED) 252 mg/dL 74-106 H Performed by certified thread milling machine set up operator at [facility] [id number] 20:04:00* Test Item Value Reference Range Interpretation Comments GLUBED (test code = GLUBED) 183 mg/dL 74-106 H Performed by certified thread milling machine set up operator at [facility] [id number] 18:42:00* Test Item Value Reference Range Interpretation Comments GLUBED (test code = GLUBED) 218 mg/dL 74-106 H Performed by certified thread milling machine set up operator at [facility] [id number] 12:24:00* Test Item Value Reference Range Interpretation Comments GLUBED (test code = GLUBED) 281 mg/dL 74-106 H Performed by certified thread milling machine set up operator at [facility] [id number] 08:29:00* Test Item Value Reference Range Interpretation Comments GLUBED (test code = GLUBED) 293 mg/dL 74-106 H Performed by certified thread milling machine set up operator at [facility] [id number] 20:21:00* Test Item Value Reference Range Interpretation Comments GLUBED (test code = GLUBED) 236 mg/dL 74-106 H Performed by certified thread milling machine set up operator at [facility] [id number] 17:17:00* Test Item Value Reference Range Interpretation Comments GLUBED (test code = GLUBED) 311 mg/dL 74-106 H Performed by certified thread milling machine set up operator at [facility] [id number] 12:22:00* Test Item Value Reference Range Interpretation Comments GLUBED (test code = GLUBED) 230 mg/dL 74-106 H Performed by certified thread milling machine set up operator at [facility] [id number] 08:34:00* Test Item Value Reference Range Interpretation Comments GLUBED (test code = GLUBED) 301 mg/dL 74-106 H Performed by certified thread milling machine set up operator at [facility] BASIC METABOLIC [id number] 06:15:00* Test Item Value Reference Range Interpretation [...] CA) 8.6 mg/dL 8.5-10.1 N BASIC METABOLIC [id number] 06:12:00* Test Item Value Reference Range Interpretation [...] code = CA) 8.6 mg/dL 8.5-10.1 N [id number] 20:44:00* Test Item Value Reference Range Interpretation Comments GLUBED (test code = GLUBED) 304 mg/dL 74-106 H Performed by certified thread milling machine set up operator at [facility] [id number] 17:42:00* Test Item Value Reference Range Interpretation Comments MAGNESIUM (test code = MAG) 1.8 mg/dL 1.8-2.4 N [id number] 17:25:00* Test Item Value Reference Range Interpretation Comments GLUBED (test code = GLUBED) 196 mg/dL 74-106 H Performed by certified thread milling machine set up operator at [facility] [id number] 12:10:00* Test Item Value Reference Range Interpretation Comments GLUBED (test code = GLUBED) 223 mg/dL 74-106 H Performed by certified thread milling machine set up operator at [facility] BASIC METABOLIC [id number] 07:59:00* Test Item Value Reference Range Interpretation [...] code = CA) 8.6 mg/dL 8.5-10.1 N [id number] 07:59:00* Test Item Value Reference Range Interpretation Comments MAGNESIUM (test code = MAG) 1.8 mg/dL 1.8-2.4 N [id number] 07:54:00* Test Item Value Reference Range Interpretation Comments GLUBED (test code = GLUBED) 232 mg/dL 74-106 H Performed by certified thread milling machine set up operator at [facility] BASIC METABOLIC [id number] 07:35:00* Test Item Value Reference Range Interpretation [...] CALCIUM (test code = CA) mg/dL 8.5-10.1 [id number] 07:35:00* Test Item Value Reference Range Interpretation Comments MAGNESIUM (test code = MAG) mg/dL 1.8-2.4 [id number] 20:33:00* Test Item Value Reference Range Interpretation Comments GLUBED (test code = GLUBED) 161 mg/dL 74-106 H Performed by certified thread milling machine set up operator at [facility] [id number] 16:15:00* Test Item Value Reference Range Interpretation Comments GLUBED (test code = GLUBED) 137 mg/dL 74-106 H Performed by certified thread milling machine set up operator at [facility] [id number] 15:50:00 RUN DATE: 08/29/19 [place] PAGE 1 RUN TIME: 1550 Specimen Inqui ry RUN USER: INTERFACE PATIENT: KALYANI TALAVERA ACCT #: [id number] LOC: [place] U #: [id number] AGE/SX: 64/F ROOM: [facility] RE08/29/19REG DR: Benjamin Masters MD : 57 BED: A DIS: STATUS: ADM IN TLOC: SPEC #: [id number] RECD: 08/28/19 STATUS: SHREYA BROWN #: [id number] MARILEE: 08/27/19 DR: Emil Martinez MD ENTERED: 08/28/19 SP TYPE: STOMACH OTHR DR: Faizan Barron i, MD, Kuldip Kumar MD Ojeas, Harry Silvio MDORDERED: GROSS COPIES TO: Emil Martinez MD [address] [place] [address] Faizan Jennings MD [address], [address] [place] [address] Harry Gutierrez MD [address] [facility] [address] [place] [address] Kb Bradford MD [address] [address] PROCEDURES: GROSS (08/29/19- 1451) TISSUES: ANTRAL BIOPSY - H-PYLORI CLINICAL HISTORY COLLECTION DATE: 08/27/19 DYSPHAGIA FINAL DIAGNOSIS Antrum, biop sy: REACTIVE GASTROPATHY NO INTESTINAL METAPLASIA SEEN NEGA TIVE FOR HELICOBACTER PYLORI BY GIEMSA STAIN NEGATIVE FOR MALIGNANCY CONTINUED ON NEXT PAGE RUN DATE : 08/29/19 [place] - Lab PAGE 2 RUN TIME: 1550 Specimen Inquiry RUN USER: INTERFACE SPEC #: [id number] PATIENT: KALYANI TALAVERA #V [id number] (Continued) FINAL DIAGNOSIS (Continue d) BRITTNI/corby [place] [address], [address] MACROSCOPIC The specimen is re ceived in formalin, labeled with the patient's name, and identified as "antrum bx", and consists of two gutierrez biopsies measuring 0.25 cm each. RADHA SS PERFORMED AT [facility] FACTORY CLERK S [address] [place] [address] [phone] MICROS COPIC All of the stains, including any controls performed, stain casandra loyd. MICROSCOPIC PERFORMED AT [facility] [address] [place] [address] ([phone] PERFORMING SITE Diagnosis performed at: [facility], YANETH [address] [place] [address] Signed SIGNATURE ON FILE Petty Lowe MD 08/29/19 1550 END OF REPORT [id number] 11:43:00* Test Item Value Reference Range Interpretation Comments GLUBED (test code = GLUBED) 318 mg/dL 74-106 H Performed by certified thread milling machine set up operator at [facility] BASIC METABOLIC [id number] 09:27:00* Test Item Value Reference Range Interpretation [...] CA) 8.5 mg/dL 8.5-10.1 N BASIC METABOLIC [id number] 09:17:00* Test Item Value Reference Range Interpretation [...] CALCIUM (test code = CA) mg/dL 8.5-10.1 [id number] 08:08:00* Test Item Value Reference Range Interpretation Comments GLUBED (test code = GLUBED) 291 mg/dL 74-106 H Performed by certified thread milling machine set up operator at [facility] [id number] 20:52:00* Test Item Value Reference Range Interpretation Comments GLUBED (test code = GLUBED) 267 mg/dL 74-106 H Performed by certified thread milling machine set up operator at [facility] [id number] 19:40:00* Test Item Value Reference Range Interpretation Comments TROPONIN-I (test code = TROPI) <0.015 ng/mL 0-0.045 N SPECIMEN COMMENTS: [id number] 19:27:00* Test Item Value Reference Range Interpretation Comments MAGNESIUM (test code = MAG) 1.6 mg/dL 1.8-2.4 L - XR ANKLE 3 + V [id number] 16:26:00 FAX: Benjamin Francis MD [phone] [place]: B St: ADM Name: KALYANI CATES [facility] : [birth year] Age/S: 64/F [address] [facility] Unit #: [id number] Loc: V.[address] [place] [address] Phys: Benjamin Masters MD Acct: [id number] Dis Date: Status: ADM IN PHONE #: [phone] Exam Date: 08/28/2019 1600 FAX #: [phone] Reason: Left ankle injury EXAMS: CPT CODE: [id number] XR ANKLE 3 + V LT [address]4843 REASON FOR EXAM: Left ankle injury EXAM ORDER DATE: 08/28/2019 12:00 AM Ordering: Benjamin Masters MD Attending:Benjamin Masters MD Location:[facility] PROCEDURE: - XR ANKLE 3 + V LT FINDIN GS: 3 views of the left ankle were obtained. The osseous structures are un remarkable in size and shape. The joint spaces are maintained. No evidence of fracture. The syndesmosis is intact. IMPRESSION: Mild soft tissue swelling in the lateral malleolus. at 9546 Reported and signed by: Pelon Moreno M.D. CC: Benjamin Masters Technologist: Jacquie Alcantara RT(R) Trnscrd Date/Time/By: 08/28/2019 (5449) : By: LeanneVTL Orig P rint D/T: S: 08/28/2019 (7467) PAGE 1 Signed Report [id number] 16:25:00* Test Item Value Reference Range Interpretation Comments GLUBED (test code = GLUBED) 241 mg/dL 74-106 H Performed by certified thread milling machine set up operator at [facility] - XR CHEST 1 [id number] 16:25:00 FAX: Benjamin Francis MD [phone] [place]: B St: ADM Name: KALYANI CATES [facility] : [birth year] Age/S: 64/F [address] [facility] Unit #: [id number] Loc: [address] [place] [address] Phys: Benjamin Masters MD Acct: [id number] Dis Date: Status: ADM IN PHONE #: [phone] Exam Date: 08/28/2019 1600 FAX #: [phone] Reason: CHF EXAMS: CPT CODE: [id number] XR CHEST 1 V 03050 REASON FOR EXAM: CHF EXAM ORDER DATE: 08/28/2019 12:00 AM Ordering: Benjamin Masters MD Attending:Benjamin Masters MD Location:[facility] PRO CEDURE: - XR CHEST 1 V COMPARISON: 08/27/2019 FINDING S: Portable AP frontal view of the chest obtained at 3:59 PM shows clear lungs without evidence of consolidation. There is no evidence of effusion. The heart size is minimally enlarged. Pulmonary vasculatures are minimally congested. IMPRESSION: Interval improvement in the congestive heart failure. at 1745 Reported and signed by: Pelon Moreno M.D. CC: Benjamin Masters Technologi st: Jacquie Alcantara RT(R) Trnscrd Date/Time/By: 08/28/2019 (1327) : By: LeanneVTL Orig Print D/T: S: 08/28/2019 (2984) PAGE 1 Signed Report [id number] 11:24:00* Test Item Value Reference Range Interpretation Comments GLUBED (test code = GLUBED) 289 mg/dL 74-106 H Performed by certified thread milling machine set up operator at [facility] [id number] 07:51:00* Test Item Value Reference Range Interpretation Comments GLUBED (test code = GLUBED) 345 mg/dL 74-106 H Performed by certified thread milling machine set up operator at [facility] BASIC METABOLIC [id number] 06:05:00* Test Item Value Reference Range Interpretation [...] CA) 8.4 mg/dL 8.5-10.1 L CBC W/AUTO [id number] 06:00:00* Test Item Value Reference Range Interpretation [...] = MDIFF) NO, ONLY SCAN NEEDED DIFFERENTIAL [id number] 06:00:00* Test Item Value Reference Range Interpretation Comments STAIN ACCEPTABILITY (test code = STN ACCEPTABLE) STAIN ACCEPTABLE ANISOCYTOSIS (test code = ANISO) 2+ MICROCYTOSIS (test code = MICR) 2+ PLATELET ESTIMATE (test code = PLTEST) ADEQUATE PLATELET MORPHOLOGY (test code = PLTMORPH) NORMAL BASIC METABOLIC [id number] 05:57:00* Test Item Value Reference Range Interpretation [...] code = CA) mg/dL 8.5-10.1 CBC W/AUTO [id number] 05:35:00* Test Item Value Reference Range Interpretation [...] = MDIFF) NO, ONLY SCAN NEEDED DIFFERENTIAL [id number] 05:35:00* Test Item Value Reference Range Interpretation Comments STAIN ACCEPTABILITY (test code = STN ACCEPTABLE) CABOT RINGS (test code = CAB) MORPHOLOGY COMMENT (test code = MOC) PLATELET ESTIMATE (test code = PLTEST) PLATELET MORPHOLOGY (test code = PLTMORPH) CBC W/AUTO [id number] 05:35:00* Test Item Value Reference Range Interpretation [...] = MDIFF) NO, ONLY SCAN NEEDED DIFFERENTIAL [id number] 05:35:00* Test Item Value Reference Range Interpretation Comments STAIN ACCEPTABILITY (test code = STN ACCEPTABLE) MORPHOLOGY COMMENT (test code = MOC) PLATELET ESTIMATE (test code = PLTEST) PLATELET MORPHOLOGY (test code = PLTMORPH) CBC W/AUTO [id number] 05:35:00* Test Item Value Reference Range Interpretation [...] = MDIFF) NO, ONLY SCAN NEEDED DIFFERENTIAL [id number] 05:35:00* Test Item Value Reference Range Interpretation Comments STAIN ACCEPTABILITY (test code = STN ACCEPTABLE) MORPHOLOGY COMMENT (test code = MOC) PLATELET ESTIMATE (test code = PLTEST) PLATELET MORPHOLOGY (test code = PLTMORPH) CBC W/AUTO [id number] 05:35:00* Test Item Value Reference Range Interpretation [...] = MDIFF) NO, ONLY SCAN NEEDED DIFFERENTIAL [id number] 05:35:00* Test Item Value Reference Range Interpretation Comments STAIN ACCEPTABILITY (test code = STN ACCEPTABLE) CABOT RINGS (test code = CAB) MORPHOLOGY COMMENT (test code = MOC) PLATELET ESTIMATE (test code = PLTEST) PLATELET MORPHOLOGY (test code = PLTMORPH) [id number] 20:01:00* Test Item Value Reference Range Interpretation Comments GLUBED (test code = GLUBED) 220 mg/dL 74-106 H Performed by certified thread milling machine set up operator at [facility] [id number] 19:18:00* Test Item Value Reference Range Interpretation Comments GLYCOSYLATED HEMOGLOBIN (HA1C) (test code = GLYHGB) 9.6 % HbA1 SUGGESTED DIAGNOSIS: HbA1C (%) Diabetic >6.4Prediabetes 5.7 - 6.4Normal <5.7 ESTIMATED AVERAGE GLUCOSE (test code = EAG) 229 MG/DL - XR CHEST 1 [id number] 18:54:00 FAX: Loan Cortez NP [phone] [place]: B St: ADM FAX: Benjamin Francis MD [phone] Name: KALYANI TALAVERA [facility] : 1955 Age/S: 64/F [address] [facility] Unit #: [id number] Loc: V[address] [place] [address] Phys: Loan Cortez NP Acct: [id number] Dis Date: Status: ADM IN PHONE #: [phone] Exam Date: 08/27/2019 1845 FAX #: [phone] Reason: shortness of breath EXAMS: CPT CODE: [id number] XR CHEST 1 V 32131 REASON FOR EXAM: shortness of breath EXAM [...] S: 08/27/2019 (1856) PAGE 1 Signed Report [id number] 18:35:00* Test Item Value Reference Range Interpretation Comments GLUBED (test code = GLUBED) 201 mg/dL 74-106 H Performed by certified thread milling machine set up operator at [facility] T4 [id number] 18:03:00* Test Item Value Reference Range Interpretation Comments T4 FREE (test code = T4F) 1.10 ng/dL 0.76-1.46 N THYROID STIMULATING [id number] 18:03:00* Test Item Value Reference Range Interpretation Comments THYROID STIMULATING HORMONE (test code = TSH) 1.260 uIU/mL 0.36-3.7 4 N TSH REFERENCE RANGES: EUTHYROID: 0.35 - 4.3 mIU/mL HYPO : > 5.5 mIU/mL HYPER : < 0.35 mIU/mL [id number] 16:50:00* Test Item Value Reference Range Interpretation Comments GLUBED (test code = GLUBED) 217 mg/dL 74-106 H Performed by certified thread milling machine set up operator at [facility] [id number] 12:15:00* Test Item Value Reference Range Interpretation Comments GLUBED (test code = GLUBED) 272 mg/dL 74-106 H Performed by certified thread milling machine set up operator at [facility] [id number] 08:14:00* Test Item Value Reference Range Interpretation Comments GLUBED (test code = GLUBED) 322 mg/dL 74-106 H Performed by certified thread milling machine set up operator at [facility] [id number] 04:01:00* Test Item Value Reference Range Interpretation Comments GLUBED (test code = GLUBED) 329 mg/dL 74-106 H Performed by certified thread milling machine set up operator at [facility] CBC W/AUTO [id number] 23:42:00* Test Item Value Reference Range Interpretation [...] = MDIFF) NO, ONLY SCAN NEEDED DIFFERENTIAL [id number] 23:42:00* Test Item Value Reference Range Interpretation Comments STAIN ACCEPTABILITY (test code = STN ACCEPTABLE) STAIN ACCEPTABLE ANISOCYTOSIS (test code = ANISO) 2+ MICROCYTOSIS (test code = MICR) 2+ PLATELET ESTIMATE (test code = PLTEST) ADEQUATE PLATELET MORPHOLOGY (test code = PLTMORPH) NORMAL COMPREHENSIVE METABOLIC [id number] 23:14:00* Test Item Value Reference Range Interpretation [...] 628 mg/dL 74-106 Re sults called to [id number] by V.[email or web address].JP1 08/26/19 2313Critical results verified and [...] range due to change in reagent. URINALYSIS [id number] 23:08:00* Test Item Value Reference Range Interpretation [...] #/HPF NONE Urine Source? Clean CatchCOMPREHENSIVE METABOLIC [id number] 23:02:00* Test Item Value Reference Range Interpretation [...] code = ALKP) IUnit/L 45-117 CBC W/AUTO [id number] 22:58:00* Test Item Value Reference Range Interpretation [...] = MDIFF) NO, ONLY SCAN NEEDED DIFFERENTIAL [id number] 22:58:00* Test Item Value Reference Range Interpretation Comments STAIN ACCEPTABILITY (test code = STN ACCEPTABLE) CABOT RINGS (test code = CAB) MORPHOLOGY COMMENT (test code = MOC) PLATELET ESTIMATE (test code = PLTEST) PLATELET MORPHOLOGY (test code = PLTMORPH) CBC W/AUTO [id number] 22:58:00* Test Item Value Reference Range Interpretation [...] = MDIFF) NO, ONLY SCAN NEEDED DIFFERENTIAL [id number] 22:58:00* Test Item Value Reference Range Interpretation Comments STAIN ACCEPTABILITY (test code = STN ACCEPTABLE) CABOT RINGS (test code = CAB) MORPHOLOGY COMMENT (test code = MOC) PLATELET ESTIMATE (test code = PLTEST) PLATELET MORPHOLOGY (test code = PLTMORPH) CBC W/AUTO [id number] 22:58:00* Test Item Value Reference Range Interpretation [...] = MDIFF) NO, ONLY SCAN NEEDED DIFFERENTIAL [id number] 22:58:00* Test Item Value Reference Range Interpretation Comments STAIN ACCEPTABILITY (test code = STN ACCEPTABLE) MORPHOLOGY COMMENT (test code = MOC) PLATELET ESTIMATE (test code = PLTEST) PLATELET MORPHOLOGY (test code = PLTMORPH) CBC W/AUTO [id number] 22:58:00* Test Item Value Reference Range Interpretation [...] = MDIFF) NO, ONLY SCAN NEEDED DIFFERENTIAL [id number] 22:58:00* Test Item Value Reference Range Interpretation Comments STAIN ACCEPTABILITY (test code = STN ACCEPTABLE) CABOT RINGS (test code = CAB) MORPHOLOGY COMMENT (test code = MOC) PLATELET ESTIMATE (test code = PLTEST) PLATELET MORPHOLOGY (test code = PLTMORPH) VENOUS BLOOD [id number] 22:36:00* Test Item Value Reference Range Interpretation [...] [place] 22:17 - 08/26/2019; by Marcie TONY OPERATING TABLE ASSEMBLER METHEMOGLOBIN (test code = METHGB) 0.1 % 0.0-1.50 N BASIC METABOLIC [id number] 14:12:00* Test Item Value Reference Range Interpretation [...] CA) 8.7 mg/dL 8.5-10.1 N BASIC METABOLIC [id number] 14:06:00* Test Item Value Reference Range Interpretation [...] CA) 8.7 mg/dL 8.5-10.1 N CBC W/AUTO [id number] 13:33:00* Test Item Value Reference Range Interpretation [...] K/mm3 0.0-0.1 N - CT C-SPINE W/O [id number] 08:02:00 Name: KALYANI TALAVERA [facility] : 1955 Age/S: 64 / F [address] Unit #: [id number] Loc: [place] [address] Phys: Thelma Loyd Acct: [id number] Dis Date: Status: REG ER PHONE #: [phone] Exam Date: 08/06/2019 6322 FAX #: [phone] Reason: Neck Pain EXAMS: CPT CODE: [id number] CT C-SPINE W/O CONTRAST 11475 HISTORY: Neck Pain, status post fall TECHNIQUE: [...] (0805) PAGE 1 Signed Report BASIC METABOLIC [id number] 07:06:00* Test Item Value Reference Range Interpretation [...] CA) 9.1 mg/dL 8.5-10.1 N BASIC METABOLIC [id number] 07:02:00* Test Item Value Reference Range Interpretation [...] code = CA) mg/dL 8.5-10.1 CBC W/O [id number] 06:41:00* Test Item Value Reference Range Interpretation [...] fL 6.7-11.0 N - CT C-SPINE W/O [id number] 06:25:00 Name: KALYANI TALAVERA [facility] : 1955 Age/S: 64 / F [address] [facility] Unit #: [id number] Loc: [place] [address] Phys: Thelma Loyd DO Acct: [id number] Dis Date: Status: REG ER PHONE #: [phone] Exam Date: 08/06/2019 0605 FAX #: [phone] Reason: Neck Pain EXAMS: CPT CODE: [id number] CT C-SPINE W/O CONTRAST 54630 EXAM: - CT C-SPINE W/O CONTRAST HISTORY: [...] 1 Signed Report - CT MAXIFAC W/O [id number] 06:21:00 Name: KALYANI TALAVERA [facility] : 1955 Age/S: 64 / F [address] [facility]: [id number] Loc: [place] [address] Phys: EvertBrianThelma DO Acct: [id number] Dis Date: Status: REG ER PHONE #: [phone] Exam Date: 08/06/2019609 FAX #: [phone] Reason: TRAUMA EXAMS: CPT CODE: [id number] CT MAXIFAC W/O CNT 07441 EXAM: - CT MAXIFAC W/O CNT HISTORY: [...] signed by: Wendie Adan M.D. CC: Thelma oLyd DO; Benjamin Masters Technologist:JORDEN MERCADO, RT CTDI: DLP: Trnscb Date/Time: 08/06/2019 (06) Peggy5 Orig Print D/T: S: 08/06/2019 (0862) PAGE 1 Signed Report - CT HEAD/BRAIN W/O [id number] 06:20:00 Name: KALYANI TALAVERA [facility] : 1955 Age/S: 64 / F [address] Unit #: [id number] Loc: [place] [address] Phys: Thelma Loyd DO Acct: [id number] Dis Date: Status: REG ER PHONE #: [phone] Exam Date: 08/06/2019 0559 FAX #: [phone] Reason: HEADACHE EXAMS: CPT CODE: [id number] CT HEAD/BRAIN W/O CONT 63227 EXAM: - CT HEAD/BRAIN W/O CONT Location [...] 1 Signed Report (CONTINUED) Name: KALYANI MOSES [facility] : 1955 Age/S: 64 / F [address] Unit #: [id number] L oc: [place] [address] Phys: Thelma Loyd Acct: [id number] Dis Date: Status: REG ER PHONE #: [phone] Exam Date: 08/06/2019 0559 FAX #: [phone] Malinda son: HEADACHE EXAMS: CPT CODE: [id number] CT HEAD/BRAIN W/O CONT 56054 <Continued> CC: Thelma Loyd DO; Benjamin Masters Technologist:JORDEN MERCADO, RT CTDI: DLP: Trnscb Date/Time: 08/06/2019 (06) [email or web address] Orig Print D/T: S: 08/06/2019 (0623) PAGE 2 Signed Report BASIC METABOLIC [id number] 07:49:00* Test Item Value Reference Range Interpretation [...] code = CA) 8.7 mg/dL 8.5-10.1 N [id number] 06:05:00* Test Item Value Reference Range Interpretation Comments GLUBED (test code = GLUBED) 181 mg/dL 74-106 H Performed by certified thread milling machine set up operator at [facility] [id number] 20:37:00* Test Item Value Reference Range Interpretation Comments GLUBED (test code = GLUBED) 285 mg/dL 74-106 H Performed by certified thread milling machine set up operator at [facility] [id number] 17:15:00* Test Item Value Reference Range Interpretation Comments GLUBED (test code = GLUBED) 84 mg/dL 74-106 N Performed by certified thread milling machine set up operator at [facility] [id number] 17:15:00* Test Item Value Reference Range Interpretation Comments GLUBED (test code = GLUBED) 166 mg/dL 74-106 H Performed by certified thread milling machine set up operator at [facility] BASIC METABOLIC [id number] 07:13:00* Test Item Value Reference Range Interpretation [...] CA) 8.7 mg/dL 8.5-10.1 N BASIC METABOLIC [id number] 07:09:00* Test Item Value Reference Range Interpretation [...] code = CA) mg/dL 8.5-10.1 CBC W/AUTO [id number] 06:42:00* Test Item Value Reference Range Interpretation [...] DIFF REQUIRED (test code = MDIFF) NO [id number] 06:33:00* Test Item Value Reference Range Interpretation Comments GLUBED (test code = GLUBED) 180 mg/dL 74-106 H Performed by certified thread milling machine set up operator at [facility] [id number] 20:48:00* Test Item Value Reference Range Interpretation Comments GLUBED (test code = GLUBED) 403 mg/dL 74-106 H Performed by certified thread milling machine set up operator at [facility] [id number] 18:00:00* Test Item Value Reference Range Interpretation Comments GLUBED (test code = GLUBED) 326 mg/dL 74-106 H Performed by certified thread milling machine set up operator at [facility] [id number] 14:21:00* Test Item Value Reference Range Interpretation Comments GLYCOSYLATED HEMOGLOBIN (HA1C) (test code = GLYHGB) 8.9 % HbA1 SUGGESTED DIAGNOSIS: HbA1C (%) Diabetic >6.4Prediabetes 5.7 - 6.4Normal <5.7 ESTIMATED AVERAGE GLUCOSE (test code = EAG) 209 MG/DL [id number] 13:22:00* Test Item Value Reference Range Interpretation Comments GLUBED (test code = GLUBED) 222 mg/dL 74-106 H Performed by certified thread milling machine set up operator at [facility] CBC W/AUTO [id number] 10:20:00* Test Item Value Reference Range Interpretation [...] = MDIFF) NO, ONLY SCAN NEEDED DIFFERENTIAL [id number] 10:20:00* Test Item Value Reference Range Interpretation Comments STAIN ACCEPTABILITY (test code = STN ACCEPTABLE) STAIN ACCEPTABLE MORPHOLOGY COMMENT (test code = MOC) NORMAL PLATELET ESTIMATE (test code = PLTEST) ADEQUATE PLATELET MORPHOLOGY (test code = PLTMORPH) NORMAL COMPREHENSIVE METABOLIC [id number] 10:05:00* Test Item Value Reference Range Interpretation [...] due to change in reagent. B-TYPE NATRIURETIC [id number] 09:56:00* Test Item Value Reference Range Interpretation Comments B-TYPE NATRIURETIC PEPTIDE (test code = BNP) 62.56 pgram/mL 0-100 N COMPREHENSIVE METABOLIC [id number] 09:55:00* Test Item Value Reference Range Interpretation [...] code = ALKP) IUnit/L 45-117 CBC W/AUTO [id number] 09:21:00* Test Item Value Reference Range Interpretation [...] = MDIFF) NO, ONLY SCAN NEEDED DIFFERENTIAL [id number] 09:21:00* Test Item Value Reference Range Interpretation Comments STAIN ACCEPTABILITY (test code = STN ACCEPTABLE) CABOT RINGS (test code = CAB) MORPHOLOGY COMMENT (test code = MOC) PLATELET ESTIMATE (test code = PLTEST) PLATELET MORPHOLOGY (test code = PLTMORPH) CBC W/AUTO [id number] 09:21:00* Test Item Value Reference Range Interpretation [...] = MDIFF) NO, ONLY SCAN NEEDED DIFFERENTIAL [id number] 09:21:00* Test Item Value Reference Range Interpretation Comments STAIN ACCEPTABILITY (test code = STN ACCEPTABLE) MORPHOLOGY COMMENT (test code = MOC) PLATELET ESTIMATE (test code = PLTEST) PLATELET MORPHOLOGY (test code = PLTMORPH) CBC W/AUTO [id number] 09:20:00* Test Item Value Reference Range Interpretation [...] = MDIFF) NO, ONLY SCAN NEEDED DIFFERENTIAL [id number] 09:20:00* Test Item Value Reference Range Interpretation Comments STAIN ACCEPTABILITY (test code = STN ACCEPTABLE) CABOT RINGS (test code = CAB) MORPHOLOGY COMMENT (test code = MOC) PLATELET ESTIMATE (test code = PLTEST) PLATELET MORPHOLOGY (test code = PLTMORPH) CBC W/AUTO [id number] 09:20:00* Test Item Value Reference Range Interpretation [...] = MDIFF) NO, ONLY SCAN NEEDED DIFFERENTIAL [id number] 09:20:00* Test Item Value Reference Range Interpretation Comments STAIN ACCEPTABILITY (test code = STN ACCEPTABLE) CABOT RINGS (test code = CAB) MORPHOLOGY COMMENT (test code = MOC) PLATELET ESTIMATE (test code = PLTEST) PLATELET MORPHOLOGY (test code = PLTMORPH) [id number] 06:25:00* Test Item Value Reference Range Interpretation Comments GLUBED (test code = GLUBED) 208 mg/dL 74-106 H Performed by certified thread milling machine set up operator at [facility] [id number] 20:49:00* Test Item Value Reference Range Interpretation Comments GLUBED (test code = GLUBED) 383 mg/dL 74-106 H Performed by certified thread milling machine set up operator at [facility] [id number] 20:49:00* Test Item Value Reference Range Interpretation Comments GLUBED (test code = GLUBED) 421 mg/dL 74-106 H Performed by certified thread milling machine set up operator at [facility] - XR CHEST 1 [id number] 16:23:00 FAX: Alfa Moscoso MD [phone] [place]: B St: [facility] FAX: Benjamin Francis MD [phone] Name: KALYANI TALAVERA [facility] : 1955 Age/S: 64/F [address] Unit #: [id number] Loc: [place] [address] Phys: Alfa Cassidy MD Acct: [id number] Dis Date: Status: ADM IN PHONE #: [phone] Exam Date: 06/29/2019 1600 FAX #: [phone] Reason: CHF EXAMS: CPT CODE: [id number] XR CHEST 1 V 05740 HISTORY: CHF. COMPARISON: June 28, 2019. Single [...] Technologist: Kizzy Cisse RT(R) Trnscrd Date/Time/By: 06/29/2019 (1625) : By: [email or web address] Orig Print D/T: S: 06/30/2019 (1224) PAGE 1 Signed Report GLUBED 2019-06-29 12:29:00* Test Item Value Reference Range Interpretation Comments GLUBED (test code = GLUBED) 310 mg/dL 74-106 H Performed by certified thread milling machine set up operator at [facility] [id number] 06:19:00* Test Item Value Reference Range Interpretation Comments GLUBED (test code = GLUBED) 339 mg/dL 74-106 H Performed by certified thread milling machine set up operator at [facility] [id number] 00:36:00* Test Item Value Reference Range Interpretation Comments GLUBED (test code = GLUBED) 454 mg/dL 74-106 H Performed by certified thread milling machine set up operator at [facility] [id number] 20:49:00* Test Item Value Reference Range Interpretation Comments GLUBED (test code = GLUBED) 480 mg/dL 74-106 H Performed by certified thread milling machine set up operator at [facility] [id number] 18:21:00* Test Item Value Reference Range Interpretation Comments GLUBED (test code = GLUBED) 388 mg/dL 74-106 H Performed by certified thread milling machine set up operator at [facility] URINALYSIS [id number] 11:46:00* Test Item Value Reference Range Interpretation [...] #/LPF FEW Urine Source? Clean CatchB-TYPE NATRIURETIC [id number] 10:41:00* Test Item Value Reference Range Interpretation [...] taking into account the patients history. PROTHROMBIN [id number] 09:36:00* Test Item Value Reference Range Interpretation [...] (2.5-3.5) IS PATIENT ON ANTICOAGULANTS? NTHROMBOPLASTIN TIME [id number] 09:36:00* Test Item Value Reference Range Interpretation Comments THROMBOPLASTIN TIME PARTIAL (test code = PTT) 33.1 seconds 25.0-36. 5 N IS PATIENT ON ANTICOAGULANTS? [id number] 09:36:00* Test Item Value Reference Range Interpretation [...] cirrhosis - IS PATIENT ON ANTICOAGULANTS? NLACTIC [id number] 09:31:00* Test Item Value Reference Range Interpretation Comments LACTIC ACID (test code = LACT) 0.9 mmol/L 0.4-1.9 N BASIC METABOLIC [id number] 09:23:00* Test Item Value Reference Range Interpretation [...] code = CA) 8.8 mg/dL 8.5-10.1 N [id number] 09:23:00* Test Item Value Reference Range Interpretation Comments TROPONIN-I (test code = TROPI) <0.015 ng/mL 0-0.045 N - XR CHEST 1 [id number] 08:57:00 FAX: [facility] Si [phone] [place]: [address] St: REG FAX: Anastacio Burgess MD Name: KALYANI TALAVERA [facility] : 1955 Age/S: 64/F [address] Unit #: [id number] Loc: [place] [address] Phys: Anastacio Burgess MD Acct: [id number] Dis Date: Status: REG ER PHONE #: [phone] Exam Date: 06/28/2019825 FAX #: [phone] Reason: Shortness of Breath EXAMS: CPT CODE: [id number] XR CHEST 1 V 72031 REASON FOR EXAM: Shortness of Breath Exam [...] lung volumes with bibasilar subsegmental atelectasis. Location: [facility] at 0857 Reported and signed by: Dago Goodson MD CC: Lucille Land MD; Anastacio Burgess MD Technologist: Dayan Gallagher Trnscrd Date/Time/By: 06/28/2019 (0857) : By: [email or web address] Orig Print D/T: S: 06/28/2019 (0900) PAGE 1 Signed Report VENOUS BLOOD [id number] 08:54:00* Test Item Value Reference Range Interpretation [...] METHGB) 0.3 % 0.0-1.50 N CBC W/O [id number] 08:45:00* Test Item Value Reference Range Interpretation [...] code = MPV) 10.1 fL 6.7-11.0 N [id number] 16:30:00* Test Item Value Reference Range Interpretation Comments GLUBED (test code = GLUBED) 256 mg/dL 74-106 H Performed by certified thread milling machine set up operator at [facility] [id number] 16:30:00* Test Item Value Reference Range Interpretation Comments GLUBED (test code = GLUBED) 277 mg/dL 74-106 H Performed by certified thread milling machine set up operator at [facility] [id number] 07:50:00* Test Item Value Reference Range Interpretation Comments GLUBED (test code = GLUBED) 145 mg/dL 74-106 H Performed by certified thread milling machine set up operator at [facility] [id number] 20:38:00* Test Item Value Reference Range Interpretation Comments GLUBED (test code = GLUBED) 250 mg/dL 74-106 H Performed by certified thread milling machine set up operator at [facility] [id number] 16:19:00* Test Item Value Reference Range Interpretation Comments GLUBED (test code = GLUBED) 340 mg/dL 74-106 H Performed by certified thread milling machine set up operator at [facility] [id number] 11:09:00* Test Item Value Reference Range Interpretation Comments GLUBED (test code = GLUBED) 102 mg/dL 74-106 N Performed by certified thread milling machine set up operator at [facility] [id number] 07:20:00* Test Item Value Reference Range Interpretation Comments GLUBED (test code = GLUBED) 144 mg/dL 74-106 H Performed by certified thread milling machine set up operator at [facility] [id number] 21:56:00* Test Item Value Reference Range Interpretation Comments GLUBED (test code = GLUBED) 328 mg/dL 74-106 H Performed by certified thread milling machine set up operator at [facility] [id number] 16:11:00* Test Item Value Reference Range Interpretation Comments GLUBED (test code = GLUBED) 378 mg/dL 74-106 H Performed by certified thread milling machine set up operator at [facility] [id number] 11:08:00* Test Item Value Reference Range Interpretation Comments GLUBED (test code = GLUBED) 168 mg/dL 74-106 H Performed by certified thread milling machine set up operator at [facility] [id number] 07:29:00* Test Item Value Reference Range Interpretation Comments GLUBED (test code = GLUBED) 205 mg/dL 74-106 H Performed by certified thread milling machine set up operator at [facility] B-TYPE NATRIURETIC [id number] 06:12:00* Test Item Value Reference Range Interpretation Comments B-TYPE NATRIURETIC PEPTIDE (test code = BNP) 86.51 pgram/mL 0-100 N COMPREHENSIVE METABOLIC [id number] 05:53:00* Test Item Value Reference Range Interpretation [...] due to change in reagent. COMPREHENSIVE METABOLIC [id number] 05:37:00* Test Item Value Reference Range Interpretation [...] code = ALKP) IUnit/L 45-117 CBC W/AUTO [id number] 05:26:00* Test Item Value Reference Range Interpretation [...] DIFF REQUIRED (test code = MDIFF) NO [id number] 02:25:00* Test Item Value Reference Range Interpretation Comments GLUBED (test code = GLUBED) 408 mg/dL 74-106 H Performed by certified thread milling machine set up operator at [facility] [id number] 17:10:00* Test Item Value Reference Range Interpretation Comments GLUCOSE (test code = GLU) 536 mg/dL 74-106 HH Re sults called to [id number] by [employer]. 06/10/19 1710Critical results verified and read back by Nurse? Y [id number] 16:05:00* Test Item Value Reference Range Interpretation Comments GLUBED (test code = GLUBED) > 500 mg/dL 74-106 HH Performed by certified thread milling machine set [facility]~ [id number] 11:05:00* Test Item Value Reference Range Interpretation Comments GLUBED (test code = GLUBED) 279 mg/dL 74-106 H Performed by certified thread milling machine set up operator at [facility] BASIC METABOLIC [id number] 11:02:00* Test Item Value Reference Range Interpretation [...] code = CA) 8.9 mg/dL 8.5-10.1 N [id number] 11:02:00* Test Item Value Reference Range Interpretation Comments MAGNESIUM (test code = MAG) 2.0 mg/dL 1.8-2.4 N BASIC METABOLIC [id number] 10:52:00* Test Item Value Reference Range Interpretation [...] CALCIUM (test code = CA) mg/dL 8.5-10.1 [id number] 10:52:00* Test Item Value Reference Range Interpretation Comments MAGNESIUM (test code = MAG) mg/dL 1.8-2.4 [id number] 07:27:00* Test Item Value Reference Range Interpretation Comments GLUBED (test code = GLUBED) 260 mg/dL 74-106 H Performed by certified thread milling machine set up operator at [facility] [id number] 20:43:00* Test Item Value Reference Range Interpretation Comments GLUBED (test code = GLUBED) 417 mg/dL 74-106 H Performed by certified thread milling machine set up operator at [facility] [id number] 15:54:00* Test Item Value Reference Range Interpretation Comments GLUBED (test code = GLUBED) 389 mg/dL 74-106 H Performed by certified thread milling machine set up operator at [facility] [id number] 12:24:00* Test Item Value Reference Range Interpretation Comments GLUBED (test code = GLUBED) 389 mg/dL 74-106 H Performed by certified thread milling machine set up operator at [facility] [id number] 07:56:00* Test Item Value Reference Range Interpretation Comments GLUBED (test code = GLUBED) 350 mg/dL 74-106 H Performed by certified thread milling machine set up operator at [facility] [id number] 04:10:00* Test Item Value Reference Range Interpretation Comments GLUBED (test code = GLUBED) 427 mg/dL 74-106 H Performed by certified thread milling machine set up operator at [facility] [id number] 19:56:00* Test Item Value Reference Range Interpretation Comments GLUBED (test code = GLUBED) 384 mg/dL 74-106 H Performed by certified thread milling machine set up operator at [facility] [id number] 16:27:00* Test Item Value Reference Range Interpretation Comments GLUBED (test code = GLUBED) 378 mg/dL 74-106 H Performed by certified thread milling machine set up operator at [facility] [id number] 12:06:00* Test Item Value Reference Range Interpretation Comments GLUBED (test code = GLUBED) 402 mg/dL 74-106 H Performed by certified thread milling machine set up operator at [facility] [id number] 11:11:00* Test Item Value Reference Range Interpretation Comments TROPONIN-I (test code = TROPI) <0.015 ng/mL 0-0.045 N COMMENTS TO LOLLYPOP MACHINE OPERATOR: COLLECT 3 HOURS AFTER PREVIOUS SAMPLEURINALYSIS [id number] 08:30:00* Test Item Value Reference Range Interpretation [...] MUCU) FEW #/LPF FEW Urine Source? Clean [id number] 07:35:00* Test Item Value Reference Range Interpretation Comments TROPONIN-I (test code = TROPI) <0.015 ng/mL 0-0.045 N COMMENTS TO LOLLYPOP MACHINE OPERATOR: COLLECT 3 HOURS AFTER PREVIOUS [id number] 06:35:00* Test Item Value Reference Range Interpretation Comments GLUBED (test code = GLUBED) 298 mg/dL 74-106 H Performed by certified thread milling machine set up operator at [facility] BASIC METABOLIC [id number] 01:22:00* Test Item Value Reference Range Interpretation [...] CA) 8.5 mg/dL 8.5-10.1 N HEPATIC FUNCTION [id number] 01:22:00* Test Item Value Reference Range Interpretation [...] reference range due to change in reagent. [id number] 01:22:00* Test Item Value Reference Range Interpretation Comments LIPASE (test code = LIP) 143 U/L 73.0-393.0 N [id number] 01:22:00* Test Item Value Reference Range Interpretation Comments TROPONIN-I (test code = TROPI) <0.015 ng/mL 0-0.045 N BASIC METABOLIC [id number] 01:14:00* Test Item Value Reference Range Interpretation [...] code = CA) mg/dL 8.5-10.1 HEPATIC FUNCTION [id number] 01:14:00* Test Item Value Reference Range Interpretation [...] TOTAL (test code = ALKP) IUnit/L 45-117 [id number] 01:14:00* Test Item Value Reference Range Interpretation Comments LIPASE (test code = LIP) U/L 73.0-393.0 [id number] 01:14:00* Test Item Value Reference Range Interpretation Comments TROPONIN-I (test code = TROPI) ng/mL 0-0.045 B-TYPE NATRIURETIC [id number] 00:16:00* Test Item Value Reference Range Interpretation Comments B-TYPE NATRIURETIC PEPTIDE (test code = BNP) 43.43 pgram/mL 0-100 N PROTHROMBIN [id number] 23:21:00* Test Item Value Reference Range Interpretation [...] (2.5-3.5) IS PATIENT ON ANTICOAGULANTS? NTHROMBOPLASTIN TIME [id number] 23:21:00* Test Item Value Reference Range Interpretation Comments THROMBOPLASTIN TIME PARTIAL (test code = PTT) 28.8 seconds 25.0-36. 5 N IS PATIENT ON ANTICOAGULANTS? NCBC W/O [id number] 23:12:00* Test Item Value Reference Range Interpretation [...] fL 6.7-11.0 N - XR CHEST 1 [id number] 23:01:00 FAX: [facility], [place]: [address] St: [facility] FAX: Anastacio Burgess MD Name: KALYANI TALAVERA [facility] : 1955 Age/S: 64/F [address] [facility] Unit #: [id number] Loc: [place] [address] Phys: Anastacio Burgess MD Acct: [id number] Dis Date: Status: REG ER PHONE #: [phone] Exam Date: 06/07/2019 2250 FAX #: [phone] Reason: Abdominal Pain EXAMS: CPT CODE: [id number] XR CHEST 1 V 86387 EXAM: Chest x-ray, one view; INFORMATION: Vomiting; abdominal pain; FINDINGS: Increased densities of the left lung which may be due to edema or infiltrative changes. The right lung is slightly better aerated. Bilateral atelectatic changes. The heart is slightly enlarged. IMPRESSION: 1. Left pulmonary edema or possibly interstitial infiltrative changes and basilar atelectatic changes. 2. Mild cardiomegaly. Location code: [facility] at 2301 Reported and signed by: Jc Bravo M.D. CC: Lucille Nur MD; Anastacio Burgess MD Technologist: Marcelino Reid RT(R); SCOOBY PARSONS RT(R) Trnscrd Date/Time/By: 06/07/2019 (609) : By: Leanne GRW Orig Print D/T: S: 06/07/2019 (9155) PAGE 1 Signed Report - CT HEAD/BRAIN W/O [id number] 13:15:00 Name: KALYANI TALAVERA [facility] : 1955 Age/S: 64 / F [address] [facility] Unit #: [id number] Loc: [place] [address] Phys: Jessenia Be MD Acct: [id number] Dis Date: Status: REG ER PHONE #: [phone] Exam Date: 05/31/2019 1246 FAX #: [phone] Reason: pain, trauma EXAMS: CPT CODE: [id number] CT HEAD/BRAIN W/O CONT 64235 HISTORY: pain, trauma TECHNIQUE: Noncontrast 2.5 mm [...] (1315) t.SDR.RR31 Orig Print D/T: S: 05/31/2019 (4486) PAGE 1 Signed Report GLUBED 2019-05-31 12:02:00* Test Item Value Reference Range Interpretation Comments GLUBED (test code = GLUBED) 200 mg/dL 74-106 H Performed by certified thread milling machine set up operator at [facility] [id number] 09:10:00* Test Item Value Reference Range Interpretation Comments GLUBED (test code = GLUBED) 83 mg/dL 74-106 N Performed by certified thread milling machine set up operator at [facility] [id number] 11:47:00* Test Item Value Reference Range Interpretation Comments GLUBED (test code = GLUBED) 192 mg/dL 74-106 H Performed by certified thread milling machine set up operator at [facility] [id number] 07:59:00* Test Item Value Reference Range Interpretation Comments GLUBED (test code = GLUBED) 164 mg/dL 74-106 H Performed by certified thread milling machine set up operator at [facility] [id number] 21:14:00* Test Item Value Reference Range Interpretation Comments GLUBED (test code = GLUBED) 215 mg/dL 74-106 H Performed by certified thread milling machine set up operator at [facility] [id number] 15:34:00* Test Item Value Reference Range Interpretation Comments GLUBED (test code = GLUBED) 130 mg/dL 74-106 H Performed by certified thread milling machine set up operator at [facility] [id number] 12:10:00* Test Item Value Reference Range Interpretation Comments GLUBED (test code = GLUBED) 231 mg/dL 74-106 H Performed by certified thread milling machine set up operator at [facility] [id number] 08:38:00* Test Item Value Reference Range Interpretation Comments GLUBED (test code = GLUBED) 173 mg/dL 74-106 H Performed by certified thread milling machine set up operator at [facility] [id number] 20:39:00* Test Item Value Reference Range Interpretation Comments GLUBED (test code = GLUBED) 129 mg/dL 74-106 H Performed by certified thread milling machine set up operator at [facility]2019-10-30 16:16:00* Test Item Value Reference Range Interpretation Comments GLUBED (test code = GLUBED) 337 mg/dL 74-106 H Performed by certified thread milling machine set up operator at [facility]2019-10-30 12:15:00* Test Item Value Reference Range Interpretation Comments GLUBED (test code = GLUBED) 247 mg/dL 74-106 H Performed by certified thread milling machine set up operator at [facility] [id number] 08:03:00* Test Item Value Reference Range Interpretation Comments GLUBED (test code = GLUBED) 170 mg/dL 74-106 H Performed by certified thread milling machine set up operator at [facility] [id number] 20:11:00* Test Item Value Reference Range Interpretation Comments GLUBED (test code = GLUBED) 244 mg/dL 74-106 H Performed by certified thread milling machine set up operator at [facility] [id number] 17:36:00* Test Item Value Reference Range Interpretation Comments GLUBED (test code = GLUBED) 238 mg/dL 74-106 H Performed by certified thread milling machine set up operator at [facility] [id number] 16:06:00* Test Item Value Reference Range Interpretation Comments GLUBED (test code = GLUBED) 196 mg/dL 74-106 H Performed by certified thread milling machine set up operator at [facility] [id number] 12:42:00* Test Item Value Reference Range Interpretation Comments GLUBED (test code = GLUBED) 292 mg/dL 74-106 H Performed by certified thread milling machine set up operator at [facility] [id number] 09:09:00* Test Item Value Reference Range Interpretation Comments GLUBED (test code = GLUBED) 196 mg/dL 74-106 H Performed by certified thread milling machine set up operator at [facility] [id number] 20:30:00* Test Item Value Reference Range Interpretation Comments GLUBED (test code = GLUBED) 213 mg/dL 74-106 H Performed by certified thread milling machine set up operator at [facility] [id number] 18:23:00* Test Item Value Reference Range Interpretation Comments GLUBED (test code = GLUBED) 102 mg/dL 74-106 N Performed by certified thread milling machine set up operator at [facility] [id number] 17:02:00* Test Item Value Reference Range Interpretation Comments GLUBED (test code = GLUBED) 181 mg/dL 74-106 H Performed by certified thread milling machine set up operator at [facility] BASIC METABOLIC [id number] 15:17:00* Test Item Value Reference Range Interpretation [...] CA) 9.3 mg/dL 8.5-10.1 N BASIC METABOLIC [id number] 15:08:00* Test Item Value Reference Range Interpretation [...] CALCIUM (test code = CA) mg/dL 8.5-10.1 [id number] 12:53:00* Test Item Value Reference Range Interpretation Comments GLUBED (test code = GLUBED) 262 mg/dL 74-106 H Performed by certified thread milling machine set up operator at [facility] [id number] 08:22:00* Test Item Value Reference Range Interpretation Comments GLUBED (test code = GLUBED) 198 mg/dL 74-106 H Performed by certified thread milling machine set up operator at [facility] CBC W/AUTO [id number] 06:43:00* Test Item Value Reference Range Interpretation [...] = MDIFF) NO, ONLY SCAN NEEDED DIFFERENTIAL [id number] 06:43:00* Test Item Value Reference Range Interpretation Comments STAIN ACCEPTABILITY (test code = STN ACCEPTABLE) STAIN ACCEPTABLE MORPHOLOGY COMMENT (test code = MOC) NORMAL PLATELET ESTIMATE (test code = PLTEST) ADEQUATE PLATELET MORPHOLOGY (test code = PLTMORPH) NORMAL COMPREHENSIVE METABOLIC [id number] 05:19:00* Test Item Value Reference Range Interpretation [...] due to change in reagent. COMPREHENSIVE METABOLIC [id number] 05:11:00* Test Item Value Reference Range Interpretation [...] code = ALKP) IUnit/L 45-117 CBC W/AUTO [id number] 04:49:00* Test Item Value Reference Range Interpretation [...] = MDIFF) NO, ONLY SCAN NEEDED DIFFERENTIAL [id number] 04:49:00* Test Item Value Reference Range Interpretation Comments STAIN ACCEPTABILITY (test code = STN ACCEPTABLE) CABOT RINGS (test code = CAB) MORPHOLOGY COMMENT (test code = MOC) PLATELET ESTIMATE (test code = PLTEST) PLATELET MORPHOLOGY (test code = PLTMORPH) CBC W/AUTO [id number] 04:49:00* Test Item Value Reference Range Interpretation [...] = MDIFF) NO, ONLY SCAN NEEDED DIFFERENTIAL [id number] 04:49:00* Test Item Value Reference Range Interpretation Comments STAIN ACCEPTABILITY (test code = STN ACCEPTABLE) CABOT RINGS (test code = CAB) MORPHOLOGY COMMENT (test code = MOC) PLATELET ESTIMATE (test code = PLTEST) PLATELET MORPHOLOGY (test code = PLTMORPH) CBC W/AUTO [id number] 04:49:00* Test Item Value Reference Range Interpretation [...] = MDIFF) NO, ONLY SCAN NEEDED DIFFERENTIAL [id number] 04:49:00* Test Item Value Reference Range Interpretation Comments STAIN ACCEPTABILITY (test code = STN ACCEPTABLE) MORPHOLOGY COMMENT (test code = MOC) PLATELET ESTIMATE (test code = PLTEST) PLATELET MORPHOLOGY (test code = PLTMORPH) CBC W/AUTO [id number] 04:49:00* Test Item Value Reference Range Interpretation [...] = MDIFF) NO, ONLY SCAN NEEDED DIFFERENTIAL [id number] 04:49:00* Test Item Value Reference Range Interpretation Comments STAIN ACCEPTABILITY (test code = STN ACCEPTABLE) CABOT RINGS (test code = CAB) MORPHOLOGY COMMENT (test code = MOC) PLATELET ESTIMATE (test code = PLTEST) PLATELET MORPHOLOGY (test code = PLTMORPH) [id number] 21:00:00* Test Item Value Reference Range Interpretation Comments GLUBED (test code = GLUBED) 245 mg/dL 74-106 H Performed by certified thread milling machine set up operator at [facility] [id number] 17:03:00* Test Item Value Reference Range Interpretation Comments GLUBED (test code = GLUBED) 110 mg/dL 74-106 H Performed by certified thread milling machine set up operator at [facility] [id number] 13:56:00* Test Item Value Reference Range Interpretation Comments MAGNESIUM (test code = MAG) 2.4 mg/dL 1.8-2.4 N [id number] 11:32:00* Test Item Value Reference Range Interpretation Comments GLUBED (test code = GLUBED) 327 mg/dL 74-106 H Performed by certified thread milling machine set up operator at [facility] [id number] 07:46:00* Test Item Value Reference Range Interpretation Comments GLUBED (test code = GLUBED) 294 mg/dL 74-106 H Performed by certified thread milling machine set up operator at [facility] COMPREHENSIVE METABOLIC [id number] 05:18:00* Test Item Value Reference Range Interpretation [...] result is a direct measurement.========= THYROID STIMULATING [id number] 05:18:00* Test Item Value Reference Range Interpretation Comments THYROID STIMULATING HORMONE (test code = TSH) 2.610 uIU/mL 0.36-3.7 4 N TSH REFERENCE RANGES: EUTHYROID: 0.35 - 4.3 mIU/mL HYPO : > 5.5 mIU/mL HYPER : < 0.35 mIU/mL [id number] 05:18:00* Test Item Value Reference Range Interpretation Comments GLYCOSYLATED HEMOGLOBIN (HA1C) (test code = GLYHGB) 9.0 % HbA1 4. 8-6.0 H ESTIMATED AVERAGE GLUCOSE (test code = EAG) 212 MG/DL CBC W/AUTO [id number] 04:33:00* Test Item Value Reference Range Interpretation [...] code = BA#) K/mm3 0.0-0.2 CBC W/AUTO [id number] 04:33:00* Test Item Value Reference Range Interpretation [...] code = NRBC#) 0.00 K/mm3 0.0-0.1 N [id number] 20:34:00* Test Item Value Reference Range Interpretation Comments GLUBED (test code = GLUBED) 106 mg/dL 74-106 N Performed by certified thread milling machine set up operator at [facility] [id number] 16:44:00* Test Item Value Reference Range Interpretation Comments GLUBED (test code = GLUBED) 290 mg/dL 74-106 H Performed by certified thread milling machine set up operator at [facility] [id number] 16:44:00* Test Item Value Reference Range Interpretation Comments GLUBED (test code = GLUBED) 276 mg/dL 74-106 H Performed by certified thread milling machine set up operator at [facility] T4 [id number] 16:31:00* Test Item Value Reference Range Interpretation Comments T4 FREE (test code = T4F) 1.06 ng/dL 0.76-1.46 N THYROID STIMULATING [id number] 16:31:00* Test Item Value Reference Range Interpretation Comments THYROID STIMULATING HORMONE (test code = TSH) 0.871 uIU/mL 0.36-3.7 4 N TSH REFERENCE RANGES: EUTHYROID: 0.35 - 4.3 mIU/mL HYPO : > 5.5 mIU/mL HYPER : < 0.35 mIU/mL [id number] 16:30:00* Test Item Value Reference Range Interpretation Comments GLYCOSYLATED HEMOGLOBIN (HA1C) (test code = GLYHGB) 9.8 % HbA1 4. 8-6.0 H ESTIMATED AVERAGE GLUCOSE (test code = EAG) 235 MG/DL [id number] 12:28:00* Test Item Value Reference Range Interpretation Comments GLUBED (test code = GLUBED) 282 mg/dL 74-106 H Performed by certified thread milling machine set up operator at [facility] [id number] 11:21:00* Test Item Value Reference Range Interpretation Comments MAGNESIUM (test code = MAG) 2.3 mg/dL 1.8-2.4 N [id number] 10:04:00* Test Item Value Reference Range Interpretation Comments TROPONIN-I (test code = TROPI) <0.015 ng/mL 0-0.045 N COMMENTS TO LOLLYPOP MACHINE OPERATOR: COLLECT 3 HOURS AFTER PREVIOUS [id number] 04:34:00* Test Item Value Reference Range Interpretation Comments TROPONIN-I (test code = TROPI) <0.015 ng/mL 0-0.045 N COMMENTS TO LOLLYPOP MACHINE OPERATOR: COLLECT 3 HOURS AFTER PREVIOUS [id number] 04:12:00* Test Item Value Reference Range Interpretation Comments GLUBED (test code = GLUBED) 257 mg/dL 74-106 H Performed by certified thread milling machine set up operator at [facility] - CT CHEST W/O [id number] 23:57:00 Name: KALYANI TALAVERA [facility] : 1955 Age/S: 64 / F [address] [facility] Unit #: [id number] Loc: [place] [address] Phys: Leonora Goins MD Acct: [id number] Dis Date: Status: REG ER PHONE #: [phone] Exam Date: 05/17/2019 2320 FAX #: [phone] Reason: shortneess of breath, weakness EXAMS: CPT CODE: [id number] CT CHEST W/O CONTRAST 32732 LOCATION: Q15 HISTORY: 64-year-old female who presents [...] 1 Signed Report (CONTINUED) Name[facility] 1955 Age/S: 64 / F [address] Unit #: [id number] Loc: [place] [address] Phys: Leonora Goins MD Acct: [id number] Dis Date: S tatus: REG ER PHONE #: [phone] Exam Da te: 05/17/2019 2320 FAX #: [phone] Reason: shortn eess of breath, weakness EXAMS: CPT CODE: [id number] CT CHEST W/O CONTRAST 06230 <Continued> CC: Lucille Nur MD; Leonora Goins MD Technologist:JORDEN MERCADO, RT CTDI: DLP: Trnscb Date/Time: 05/17/2019 (0447) [email or web address] Orig Print D/T: S: 05/18/2019 (0000) PAGE 2 Signed Report [id number] 22:38:00* Test Item Value Reference Range Interpretation Comments GLUBED (test code = GLUBED) 373 mg/dL 74-106 H Performed by certified thread milling machine set up operator at [facility] [id number] 22:38:00* Test Item Value Reference Range Interpretation Comments GLUBED (test code = GLUBED) 422 mg/dL 74-106 H Performed by certified thread milling machine set up operator at [facility] - CT HEAD/BRAIN W/O [id number] 22:09:00 Name: KALYANI TALAVERA [facility] : 1955 Age/S: 64 / F [address] Unit #: [id number] Loc: [place] [address] Phys: Leonora Goins MD Acct: [id number] Dis Date: Status: REG ER PHONE #: [phone] Exam Date: 05/17/2019 211 FAX #: [phone] Reason: weakness EXAMS: CPT CODE: [id number] CT HEAD/BRAIN W/O CONT 61849 HISTORY: weakness TECHNIQUE: Noncontrast 2.5 mm axial [...] process or change from prior exam. Location: [facility] at 2209 Reported and signed by: Dago Goodson MD CC: Chris Nur MD; Leonora Goins MD Technologist:RT SOTO(R) CT CTDI: DLP: Trnscb Date/Time: 05/17/2019 (2208) [email or web address] Orig Print D/T: S: 05/17/2019 (2211) PAGE 1 Signed Report BASIC METABOLIC [id number] 22:03:00* Test Item Value Reference Range Interpretation [...] CA) 8.6 mg/dL 8.5-10.1 N HEPATIC FUNCTION [id number] 22:03:00* Test Item Value Reference Range Interpretation [...] reference range due to change in reagent. [id number] 22:03:00* Test Item Value Reference Range Interpretation Comments LIPASE (test code = LIP) 105 U/L 73.0-393.0 N [id number] 22:03:00* Test Item Value Reference Range Interpretation Comments TROPONIN-I (test code = TROPI) <0.015 ng/mL 0-0.045 N - XR CHEST 1 [id number] 22:01:00 FAX: [facility] [place] [phone] [place]: B St: REG FAX: Leonora Norton [phone] Name: KALYANI TALAVERA [facility] : 1955 Age/S: 64/F [address] Unit #: [id number] Loc: [place] [address] Phys: Leonora Goins MD Acct: [id number] Dis Date: Status: REG ER PHONE #: [phone] Exam Date: 05/17/2019 2110 FAX #: [phone] Reason: WEAKNESS EXAMS: CPT CODE: [id number] XR CHEST 1 V 76060 REASON FOR EXAM: WEAKNESS Exam Order Date: 05/17/2019 8:44 PM Ordering M.D.: Leonora Gonis MD PROCEDURE: - XR CHEST 1 V [...] be secondary to diminished lung volumes. Location: [facility] at 2201 Reported and signed by: Dago Goodson MD CC: Lucille Land MD; Leonora Goins MD Technologist: EZEQUIEL CHAPA RT Trnscrd Date/Time/By: 05/17/2019 (2200) : By: [email or web address] Orig Print D/T: S: 05/17/2019 (2203) PAGE 1 Signed Report URINALYSIS [id number] 21:54:00* Test Item Value Reference Range Interpretation [...] #/HPF NONE Urine Source? Clean CatchBASIC METABOLIC [id number] 21:42:00* Test Item Value Reference Range Interpretation [...] code = CA) mg/dL 8.5-10.1 HEPATIC FUNCTION [id number] 21:42:00* Test Item Value Reference Range Interpretation [...] TOTAL (test code = ALKP) IUnit/L 45-117 [id number] 21:42:00* Test Item Value Reference Range Interpretation Comments LIPASE (test code = LIP) U/L 73.0-393.0 [id number] 21:42:00* Test Item Value Reference Range Interpretation Comments TROPONIN-I (test code = TROPI) ng/mL 0-0.045 CBC W/O [id number] 21:33:00* Test Item Value Reference Range Interpretation [...] code = MPV) 10.9 fL 6.7-11.0 N [id number] 02:14:00* Test Item Value Reference Range Interpretation Comments GLUBED (test code = GLUBED) 359 mg/dL 74-106 H Performed by certified thread milling machine set up operator at [facility] [id number] 01:04:00* Test Item Value Reference Range Interpretation Comments GLUBED (test code = GLUBED) 484 mg/dL 74-106 H Performed by certified thread milling machine set up operator at [facility] URINALYSIS [id number] 00:11:00* Test Item Value Reference Range Interpretation [...] per HPF NONE Urine Source? Clean CatchURINALYSIS [id number] 00:07:00* Test Item Value Reference Range Interpretation [...] HPF NONE Urine Source? Clean CatchBASIC METABOLIC [id number] 23:16:00* Test Item Value Reference Range Interpretation [...] CA) 8.6 mg/dL 8.5-10.1 N HEPATIC FUNCTION [id number] 23:16:00* Test Item Value Reference Range Interpretation [...] reference range due to change in reagent. [id number] 23:16:00* Test Item Value Reference Range Interpretation Comments TROPONIN-I (test code = TROPI) <0.015 ng/mL 0-0.045 N BASIC METABOLIC [id number] 22:52:00* Test Item Value Reference Range Interpretation [...] code = CA) mg/dL 8.5-10.1 HEPATIC FUNCTION [id number] 22:52:00* Test Item Value Reference Range Interpretation [...] TOTAL (test code = ALKP) IUnit/L 45-117 [id number] 22:52:00* Test Item Value Reference Range Interpretation Comments TROPONIN-I (test code = TROPI) ng/mL 0-0.045 - CT HEAD/BRAIN W/O [id number] 22:44:00 Name: KALYANI TALAVERA [facility] : 1955 Age/S: 64 / F [address] Unit #: [id number] Loc: [facility] [place] [address] Phys: Vince Jones DO Acct: [id number] Dis Date: Status: REG ER PHONE #: [phone] Exam Date: 04/30/20192231 FAX #: [phone] Reason: headache/blurry vision EXAMS: CPT CODE: [id number] CT HEAD/BRAIN W/O CONT 33439 HISTORY: headache/blurry vision TECHNIQUE: Noncontrast 2.5 mm [...] Chavez CTDI: DL P: Trnscb Date/Time: 04/30/2019 (2242) eGovaniR.RR31 O rig Print D/T: S: 04/30/2019 (0109) PAGE 1 Signed Re port CBC W/AUTO [id number] 22:43:00* Test Item Value Reference Range Interpretation [...] DIFF REQUIRED (test code = MDIFF) NO [id number] 22:16:00* Test Item Value Reference Range Interpretation Comments GLUBED (test code = GLUBED) > 500 mg/dL 74-106 HH Performed by certified thread milling machine set [facility]~ KNEE RIGHT THREE [id number] 04:11:00 [place] [address] Patient Name: KALYANI TALAVERA MR #: [id number] : 1955 Age/Sex: 64/F Req #: [id number] Adm Physician: Ordered by: JACQUES JANE MD [...] in the patellofemoral joint. S igned by: Brdaley Harvey DO on 04/27/2019 4:12 AM Dictated By: BRADLEY ISAAC DO 1 Trans cribed By: JIM on 04/27/19411 COPY TO: JACQUES JANE MD Bedside Kqnpzub1912-13-93 04:02:00* Test Item Value Reference Range Interpretation Comments Bedside Glucose (test code = 26096-6) 387 70-120 H Meter ID: [id number] [facility] Glucose 2019-04-18 04:02:00* Test Item Value Reference Range Interpretation Comments Bedside Glucose (test code = 72985-5) 387 70-120 H Meter ID: [id number] [facility] Glucose 2019-03-15 03:09:00* Test Item Value Reference Range Interpretation Comments Bedside Glucose (test code = 04366-2) 272 70-120 H Meter ID: [id number] [facility] Glucose 2019-03-15 03:09:00* Test Item Value Reference Range Interpretation Comments Bedside Glucose (test code = 80004-4) 272 70-120 H Meter ID: [id number] [facility]-03-15 03:03:00 [place] [address] Patient Name: KALYANI TALAVERA MR #: [id number] : 1955 Age/Sex: 64/F Req #: [id number] Adm Physician: Ordered by: JACQUES JANE MD Report #: [id number] Location: ER Room/Bed: Procedure: 082300 06 DX/CHEST [...] 03/15/19313 COPY TO: JACQUES JANE MD Sodium [id number] 02:29:00* Test Item Value Reference Range Interpretation Comments Sodium Level (test code = 2951-2) 134 136-145 L [facility] Vkxcy6261-07-89 02:29:00* Test Item Value Reference Range Interpretation Comments Potassium Level (test code = 2823-3) 4.2 3.5-5.1 [facility] Arlington[facility]ide Gggou1301-33-98 02:29:00* Test Item Value Reference Range Interpretation Comments Chloride Level (test code = 2075-0) 99 98-107 [facility] Dioxide Pyfoo3810-78-97 02:29:00* Test Item Value Reference Range Interpretation Comments Carbon Dioxide Level (test code = 2028-9) 25 22-29 [facility] Arlington[facility]ion Faw6977-49-85 02:29:00* Test Item Value Reference Range Interpretation Comments Anion Gap (test code = 07833-6) 14.2 8-16 [facility] Arlington[facility] Urea Frjgtpeu3899-52-18 02:29:00* Test Item Value Reference Range Interpretation Comments Blood Urea Nitrogen (test code = 3094-0) 26 7-26 [facility] Arlington[facility]inine2019-08-23 02:29:00* Test Item Value Reference Range Interpretation Comments Creatinine (test code = 2160-0) 1.11 0.57-1.11 [facility]/Creatinine Tghhe3286-01-91 02:29:00* Test Item Value Reference Range Interpretation Comments BUN/Creatinine Ratio (test code = 3097-3) 6- [facility] Glomerular Filtration Rate 2019-03-15 02:29:00* Test Item Value Reference Range Interpretation Comments Estimat Glomerular Filtration Rate (test code = 951186578) 50 >60 L Ranges were taken from the National Kidney Disease Education Program and the Jenise counts [facility] literature.Reference ranges:60 or greater: Lbvntg03-84 ( for 3 consecutive months): Chronic kidney disease 15 or less: Kidney failureUSMD Hospital at ArlingtonGlucose Lqhwk6868-44-72 02:29:00* Test Item Value Reference Range Interpretation Comments Glucose Level (test code = NMA4205) 559 74-118 Results repeated and called to THELMA DONALDSON RN at 0229 on 03/15/19 by Francoise Proctor. Read back and verified.[facility] ArlingtonCalcium Qdybw2929-84-35 02:29:00* Test Item Value Reference Range Interpretation Comments Calcium Level (test code = 78161-5) 8.8 8.4-10.[address] [facility] Ddbmd1379-25-66 02:29:00* Test Item Value Reference Range Interpretation Comments Sodium Level (test code = 2951-2) 134 136-145 L [facility]Pot[facility] Fscqw2515-48-69 02:29:00* Test Item Value Reference Range Interpretation Comments Potassium Level (test code = 2823-3) 4.2 3.5-5.1 [facility] ArlingtonCh[facility]ide Dvcga9958-18-87 02:29:00* Test Item Value Reference Range Interpretation Comments Chloride Level (test code = 2075-0) 99 98-107 [facility] Dioxide Eiknn2697-29-88 02:29:00* Test Item Value Reference Range Interpretation Comments Carbon Dioxide Level (test code = 2028-9) 25 - [facility] ArlingtonAnion Duk4977-65-99 02:29:00* Test Item Value Reference Range Interpretation Comments Anion Gap (test code = 62238-4) 14.2 8-16 [facility] Arlington[facility] Urea Crgnkaxd0412-23-88 02:29:00* Test Item Value Reference Range Interpretation Comments Blood Urea Nitrogen (test code = 3094-0) 26 7- [facility] ArlingtonCreatinine2019-08-23 02:29:00* Test Item Value Reference Range Interpretation Comments Creatinine (test code = 2160-0) 1.11 0.57-1.11 [facility]/Creatinine Gdiev3969-62-44 02:29:00* Test Item Value Reference Range Interpretation Comments BUN/Creatinine Ratio (test code = 3097-3) 13 01- [facility] ArlingtonEstim[facility] Glomerular Filtration Rate 2019-03-15 02:29:00* Test Item Value Reference Range Interpretation Comments Estimat Glomerular Filtration Rate (test code = 878350132) 50 >60 L Ranges were taken from the National Kidney Disease Education Program and the Jenise counts [facility] literature.Reference ranges:60 or greater: Ytdbee77-13 ( for 3 consecutive months): Chronic kidney disease 15 or less: Kidney failureUSMD Hospital at ArlingtonGlucose Hnqpy1668-52-91 02:29:00* Test Item Value Reference Range Interpretation Comments Glucose Level (test code = ZOE3373) 559 74-118 Results repeated and called to THELMA DONALDSON RN at 0229 on 03/15/19 by Francoise Proctor. Read back and verified.[facility] ArlingtonCalcium Zsvyv8692-39-69 02:29:00* Test Item Value Reference Range Interpretation Comments Calcium Level (test code = 38460-9) 8.8 8.4-10.[address] [facility] Mbwax1547-40-28 02:29:00* Test Item Value Reference Range Interpretation Comments Sodium Level (test code = 2951-2) 134 136-145 L [facility]Potassium Orhrj0027-45-96 02:29:00* Test Item Value Reference Range Interpretation Comments Potassium Level (test code = 2823-3) 4.2 3.5-5.1 [facility] ArlingtonChlor[facility] Toezt9190-65-10 02:29:00* Test Item Value Reference Range Interpretation Comments Chloride Level (test code = 2075-0) 99 98-107 [facility] Dioxide Ljbme3666-42-02 02:29:00* Test Item Value Reference Range Interpretation Comments Carbon Dioxide Level (test code = 2028-9) 25 22-29 [facility] ArlingtonAnion Htb5297-70-32 02:29:00* Test Item Value Reference Range Interpretation Comments Anion Gap (test code = 73900-1) 14.2 8-16 [facility] Arlington[facility] Urea Habcjhrv1570-53-55 02:29:00* Test Item Value Reference Range Interpretation Comments Blood Urea Nitrogen (test code = 3094-0) 26 7-26 [facility] ArlingtonCreatinine2019-08-23 02:29:00* Test Item Value Reference Range Interpretation Comments Creatinine (test code = 2160-0) 1.11 0.57-1.11 [facility]/Creatinine Tnmqv7282-82-35 02:29:00* Test Item Value Reference Range Interpretation Comments BUN/Creatinine Ratio (test code = 3097-3) 23 6-25 [facility] ArlingtonEstim[facility] Glomerular Filtration Rate 2019-03-15 02:29:00* Test Item Value Reference Range Interpretation Comments Estimat Glomerular Filtration Rate (test code = 337876140) 50 >60 L Ranges were taken from the National Kidney Disease Education Program and the [facility].Reference ranges:60 or greater: Twgavs27-85 ( for 3 consecutive months): Chronic kidney disease 15 or less: Kidney failureUSMD Hospital at ArlingtonGlucose Fiuai2938-46-89 02:29:00* Test Item Value Reference Range Interpretation Comments Glucose Level (test code = JUU8831) 670 63-397 Results repeated and called to THELMA DONALDSON RN at 0229 on 03/15/19 by Francoise Proctor. Read back and verified.[facility] ArlingtonCalcium Gbyqr9457-11-28 02:29:00* Test Item Value Reference Range Interpretation Comments Calcium Level (test code = 20030-8) 8.8 8.4-10.[address] [facility] Doeid[facility]-15 02:29:00* Test Item Value Reference Range Interpretation Comments Sodium Level (test code = 2951-2) 134 136-145 L [facility] ArlingtonPotassium Qaqpm9179-91-70 02:29:00* Test Item Value Reference Range Interpretation Comments Potassium Level (test code = 2823-3) 4.2 3.5-5.1 [facility] ArlingtonChloride Wchzc5899-21-60 02:29:00* Test Item Value Reference Range Interpretation Comments Chloride Level (test code = 2075-0) 99 98-107 [facility] ArlingtonCarbon Dioxide Mhuej6731-40-32 02:29:00* Test Item Value Reference Range Interpretation Comments Carbon Dioxide Level (test code = 2028-9) 25 22-29 [facility] ArlingtonAnion Lzg4372-71-01 02:29:00* Test Item Value Reference Range Interpretation Comments Anion Gap (test code = 50676-4) 14.2 8-16 [facility] ArlingtonBlood Urea Uzhuwicl0217-55-60 02:29:00* Test Item Value Reference Range Interpretation Comments Blood Urea Nitrogen (test code = 3094-0) 26 7-26 [facility] ArlingtonCreatinine2019-08-23 02:29:00* Test Item Value Reference Range Interpretation Comments Creatinine (test code = 2160-0) 1.11 0.57-1.11 [facility] ArlingtonBUN/Creatinine Otbjt5029-34-54 02:29:00* Test Item Value Reference Range Interpretation Comments BUN/Creatinine Ratio (test code = 3097-3) 23 6-25 [facility] ArlingtonEstimat Glomerular Filtration Rate 2019-03-15 02:29:00* Test Item Value Reference Range Interpretation Comments Estimat Glomerular Filtration Rate (test code = 293468628) 50 >60 L Ranges were taken from the National Kidney Disease Education Program and the Jenise [facility].Reference ranges:60 or greater: Zqhapo35-34 ( for 3 consecutive months): Chronic kidney disease 15 or less: Kidney failureUSMD Hospital at ArlingtonGlucose Jncea8717-91-33 02:29:00* Test Item Value Reference Range Interpretation Comments Glucose Level (test code = HTB1299) 109 74118 HH Results repeated and called to THELMA DONALDSON RN at 0229 on 03/15/19 by Francoise Proctor. Read back and verified.[facility] ArlingtonCalcium Cobng5454-09-05 02:29:00* Test Item Value Reference Range Interpretation Comments Calcium Level (test code = 51804-7) 8.8 8.4-10.2 [facility] ArlingtonWhite Blood Lhibh0382-22-73 02:16:00* Test Item Value Reference Range Interpretation Comments White Blood Count (test code = 6690-2) 5.52 4.8-10.8 [facility] ArlingtonRed Blood Wxizw4633-95-64 02:16:00* Test Item Value Reference Range Interpretation Comments Red Blood Count (test code = 789-8) 4.47 3.6-5.1 [facility] ArlingtonHemoglobin2019-08-23 02:16:00* Test Item Value Reference Range Interpretation Comments Hemoglobin (test code = 59694-3) 11.3 12.0-16.0 L [facility] ArlingtonHematocrit2019-08-23 02:16:00* Test Item Value Reference Range Interpretation Comments Hematocrit (test code = 4544-3) 38.1 34.2-44.1 [facility] ArlingtonMean Corpuscular Krmovg2257-62-75 02:16:00* Test Item Value Reference Range Interpretation Comments Mean Corpuscular Volume (test code = 787-2) 85.2 81-99 [facility] ArlingtonMean Corpuscular Eqhlorukrm6654-94-44 02:16:00* Test Item Value Reference Range Interpretation Comments Mean Corpuscular Hemoglobin (test code = 785-6) 25.3 28-32 L [facility] ArlingtonMean Corpuscular Hemoglobin Concent 2019-03-15 02:16:00* Test Item Value Reference Range Interpretation Comments Mean Corpuscular Hemoglobin Concent (test code = 786-4) 29.7 31-35 L [facility] ArlingtonRed Cell Distribution Rzxyn2584-03-54 02:16:00* Test Item Value Reference Range Interpretation Comments Red Cell Distribution Width (test code = 69884-8) 16.0 11.7 -14.4 H [facility] ArlingtonPlatelet Gqitb4905-12-49 02:16:00* Test Item Value Reference Range Interpretation Comments Platelet Count (test code = 777-3) 175 140-360 [facility] ArlingtonNeutrophils (%) (Auto)2019-03-15 02:16:00 * Test Item Value Reference Range Interpretation Comments Neutrophils (%) (Auto) (test code = 20223-4) 71.8 38.7-80.0 [facility] ArlingtonLymphocytes (%) (Auto)2019-03-15 02:16:00 * Test Item Value Reference Range Interpretation Comments Lymphocytes (%) (Auto) (test code = 736-9) 20.1 18.0-39.1 [facility] ArlingtonMonocytes (%) (Auto)2019-03-15 02:16:00* Test Item Value Reference Range Interpretation Comments Monocytes (%) (Auto) (test code = 5905-5) 3.8 4.4-11.3 L [facility] ArlingtonEosinophils (%) (Auto)2019-03-15 02:16:00 * Test Item Value Reference Range Interpretation Comments Eosinophils (%) (Auto) (test code = 713-8) 1.8 0.0-6.0 [facility] ArlingtonBasophils (%) (Auto)2019-03-15 02:16:00* Test Item Value Reference Range Interpretation Comments Basophils (%) (Auto) (test code = 706-2) 0.9 0.0-1.0 [facility] ArlingtonIM GRANULOCYTES %2019-03-15 02:16:00* Test Item Value Reference Range Interpretation Comments IM GRANULOCYTES % (test code = IM GRANULOCYTES %) 1.6 0.0- 1.0 H [facility] ArlingtonNeutrophils # (Auto)2019-03-15 02:16:00* Test Item Value Reference Range Interpretation Comments Neutrophils # (Auto) (test code = 751-8) 4.0 2.1-6.9 [facility] ArlingtonLymphocytes # (Auto)2019-03-15 02:16:00* Test Item Value Reference Range Interpretation Comments Lymphocytes # (Auto) (test code = 17591-4) 1.1 1.0-3.2 [facility] ArlingtonMonocytes # (Auto)2019-03-15 02:16:00* Test Item Value Reference Range Interpretation Comments Monocytes # (Auto) (test code = 742-7) 0.2 0.2-0.8 [facility] ArlingtonEosinophils # (Auto)2019-03-15 02:16:00* Test Item Value Reference Range Interpretation Comments Eosinophils # (Auto) (test code = 711-2) 0.1 0.0-0.4 [facility] ArlingtonBasophils # (Auto)2019-03-15 02:16:00* Test Item Value Reference Range Interpretation Comments Basophils # (Auto) (test code = 704-7) 0.1 0.0-0.1 [facility] ArlingtonAbsolute Immature Granulocyte (auto 2019-03-15 02:16:00* Test Item Value Reference Range Interpretation Comments Absolute Immature Granulocyte (auto (joseph t code = Absolute Immature Granulocyte (auto) 0.09 0-0.1 [facility] ArlingtonWhite Blood Acwbs3011-74-95 02:16:00* Test Item Value Reference Range Interpretation Comments White Blood Count (test code = 6690-2) 5.52 4.8-10.8 [facility] ArlingtonRed Blood Vcndm5040-06-17 02:16:00* Test Item Value Reference Range Interpretation Comments Red Blood Count (test code = 789-8) 4.47 3.6-5.1 [facility] ArlingtonHemoglobin2019-08-23 02:16:00* Test Item Value Reference Range Interpretation Comments Hemoglobin (test code = 39664-7) 11.3 12.0-16.0 L [facility] ArlingtonHematocrit2019-08-23 02:16:00* Test Item Value Reference Range Interpretation Comments Hematocrit (test code = 4544-3) 38.1 34.2-44.1 [facility] ArlingtonMean Corpuscular Wknkxc1247-97-98 02:16:00* Test Item Value Reference Range Interpretation Comments Mean Corpuscular Volume (test code = 787-2) 85.2 81-99 [facility] ArlingtonMean Corpuscular Rhlcqqnzgf8915-62-70 02:16:00* Test Item Value Reference Range Interpretation Comments Mean Corpuscular Hemoglobin (test code = 785-6) 25.3 28-32 L [facility] ArlingtonMean Corpuscular Hemoglobin Concent 2019-03-15 02:16:00* Test Item Value Reference Range Interpretation Comments Mean Corpuscular Hemoglobin Concent (test code = 786-4) 29.7 31-35 L [facility] ArlingtonRed Cell Distribution Gtejp0989-69-39 02:16:00* Test Item Value Reference Range Interpretation Comments Red Cell Distribution Width (test code = 10274-7) 16.0 11.7 -14.4 H [facility] ArlingtonPlatelet Kdyen1758-40-57 02:16:00* Test Item Value Reference Range Interpretation Comments Platelet Count (test code = 777-3) 175 140-360 [facility] ArlingtonNeutrophils (%) (Auto)2019-03-15 02:16:00 * Test Item Value Reference Range Interpretation Comments Neutrophils (%) (Auto) (test code = 89013-6) 71.8 38.7-80.0 [facility] ArlingtonLymphocytes (%) (Auto)2019-03-15 02:16:00 * Test Item Value Reference Range Interpretation Comments Lymphocytes (%) (Auto) (test code = 736-9) 20.1 18.0-39.1 [facility] ArlingtonMonocytes (%) (Auto)2019-03-15 02:16:00* Test Item Value Reference Range Interpretation Comments Monocytes (%) (Auto) (test code = 5905-5) 3.8 4.4-11.3 L [facility] ArlingtonEosinophils (%) (Auto)2019-03-15 02:16:00 * Test Item Value Reference Range Interpretation Comments Eosinophils (%) (Auto) (test code = 713-8) 1.8 0.0-6.0 [facility] ArlingtonBasophils (%) (Auto)2019-03-15 02:16:00* Test Item Value Reference Range Interpretation Comments Basophils (%) (Auto) (test code = 706-2) 0.9 0.0-1.0 [facility] ArlingtonIM GRANULOCYTES %2019-03-15 02:16:00* Test Item Value Reference Range Interpretation Comments IM GRANULOCYTES % (test code = IM GRANULOCYTES %) 1.6 0.0- 1.0 H [facility] ArlingtonNeutrophils # (Auto)2019-03-15 02:16:00* Test Item Value Reference Range Interpretation Comments Neutrophils # (Auto) (test code = 751-8) 4.0 2.1-6.9 [facility] ArlingtonLymphocytes # (Auto)2019-03-15 02:16:00* Test Item Value Reference Range Interpretation Comments Lymphocytes # (Auto) (test code = 28021-7) 1.1 1.0-3.2 [facility] ArlingtonMonocytes # (Auto)2019-03-15 02:16:00* Test Item Value Reference Range Interpretation Comments Monocytes # (Auto) (test code = 742-7) 0.2 0.2-0.8 [facility] ArlingtonEosinophils # (Auto)2019-03-15 02:16:00* Test Item Value Reference Range Interpretation Comments Eosinophils # (Auto) (test code = 711-2) 0.1 0.0-0.4 [facility] ArlingtonBasophils # (Auto)2019-03-15 02:16:00* Test Item Value Reference Range Interpretation Comments Basophils # (Auto) (test code = 704-7) 0.1 0.0-0.1 [facility] ArlingtonAbsolute Immature Granulocyte (auto 2019-03-15 02:16:00* Test Item Value Reference Range Interpretation Comments Absolute Immature Granulocyte (auto (joseph t code = Absolute Immature Granulocyte (auto) 0.09 0-0.1 [facility] ArlingtonWhite Blood Sqqts5386-93-64 02:16:00* Test Item Value Reference Range Interpretation Comments White Blood Count (test code = 6690-2) 5.52 4.8-10.8 [facility] ArlingtonRed Blood Grzmu3685-55-64 02:16:00* Test Item Value Reference Range Interpretation Comments Red Blood Count (test code = 789-8) 4.47 3.6-5.1 [facility] ArlingtonHemoglobin2019-08-23 02:16:00* Test Item Value Reference Range Interpretation Comments Hemoglobin (test code = 68656-8) 11.3 12.0-16.0 L [facility] ArlingtonHematocrit2019-08-23 02:16:00* Test Item Value Reference Range Interpretation Comments Hematocrit (test code = 4544-3) 38.1 34.2-44.1 [facility] ArlingtonMean Corpuscular Gkegwo9399-35-37 02:16:00* Test Item Value Reference Range Interpretation Comments Mean Corpuscular Volume (test code = 787-2) 85.2 81-99 [facility] ArlingtonMean Corpuscular Gseaqlqsbd4426-29-12 02:16:00* Test Item Value Reference Range Interpretation Comments Mean Corpuscular Hemoglobin (test code = 785-6) 25.3 28-32 L [facility] ArlingtonMean Corpuscular Hemoglobin Concent 2019-03-15 02:16:00* Test Item Value Reference Range Interpretation Comments Mean Corpuscular Hemoglobin Concent (test code = 786-4) 29.7 31-35 L [facility] ArlingtonRed Cell Distribution Qdzcl5020-42-53 02:16:00* Test Item Value Reference Range Interpretation Comments Red Cell Distribution Width (test code = 47253-7) 16.0 11.7 -14.4 H [facility] ArlingtonPlatelet Ivvks0021-03-83 02:16:00* Test Item Value Reference Range Interpretation Comments Platelet Count (test code = 777-3) 175 140-360 [facility] ArlingtonNeutrophils (%) (Auto)2019-03-15 02:16:00 * Test Item Value Reference Range Interpretation Comments Neutrophils (%) (Auto) (test code = 21152-7) 71.8 38.7-80.0 [facility] ArlingtonLymphocytes (%) (Auto)2019-03-15 02:16:00 * Test Item Value Reference Range Interpretation Comments Lymphocytes (%) (Auto) (test code = 736-9) 20.1 18.0-39.1 [facility] ArlingtonMonocytes (%) (Auto)2019-03-15 02:16:00* Test Item Value Reference Range Interpretation Comments Monocytes (%) (Auto) (test code = 5905-5) 3.8 4.4-11.3 L [facility] ArlingtonEosinophils (%) (Auto)2019-03-15 02:16:00 * Test Item Value Reference Range Interpretation Comments Eosinophils (%) (Auto) (test code = 713-8) 1.8 0.0-6.0 [facility] ArlingtonBasophils (%) (Auto)2019-03-15 02:16:00* Test Item Value Reference Range Interpretation Comments Basophils (%) (Auto) (test code = 706-2) 0.9 0.0-1.0 [facility] ArlingtonIM GRANULOCYTES %2019-03-15 02:16:00* Test Item Value Reference Range Interpretation Comments IM GRANULOCYTES % (test code = IM GRANULOCYTES %) 1.6 0.0- 1.0 H [facility] ArlingtonNeutrophils # (Auto)2019-03-15 02:16:00* Test Item Value Reference Range Interpretation Comments Neutrophils # (Auto) (test code = 751-8) 4.0 2.1-6.9 [facility] ArlingtonLymphocytes # (Auto)2019-03-15 02:16:00* Test Item Value Reference Range Interpretation Comments Lymphocytes # (Auto) (test code = 50241-0) 1.1 1.0-3.2 [facility] ArlingtonMonocytes # (Auto)2019-03-15 02:16:00* Test Item Value Reference Range Interpretation Comments Monocytes # (Auto) (test code = 742-7) 0.2 0.2-0.8 [facility] ArlingtonEosinophils # (Auto)2019-03-15 02:16:00* Test Item Value Reference Range Interpretation Comments Eosinophils # (Auto) (test code = 711-2) 0.1 0.0-0.4 [facility] ArlingtonBasophils # (Auto)2019-03-15 02:16:00* Test Item Value Reference Range Interpretation Comments Basophils # (Auto) (test code = 704-7) 0.1 0.0-0.1 [facility] ArlingtonAbsolute Immature Granulocyte (auto 2019-03-15 02:16:00* Test Item Value Reference Range Interpretation Comments Absolute Immature Granulocyte (auto (joseph t code = Absolute Immature Granulocyte (auto) 0.09 0-0.1 [facility] ArlingtonWhite Blood Pvwrf3096-88-51 02:16:00* Test Item Value Reference Range Interpretation Comments White Blood Count (test code = 6690-2) 5.52 4.8-10.8 [facility] ArlingtonRed Blood Acauk2835-66-16 02:16:00* Test Item Value Reference Range Interpretation Comments Red Blood Count (test code = 789-8) 4.47 3.6-5.1 [facility] ArlingtonHemoglobin2019-08-23 02:16:00* Test Item Value Reference Range Interpretation Comments Hemoglobin (test code = 24416-1) 11.3 12.0-16.0 L [facility] ArlingtonHematocrit2019-08-23 02:16:00* Test Item Value Reference Range Interpretation Comments Hematocrit (test code = 4544-3) 38.1 34.2-44.1 [facility] ArlingtonMean Corpuscular Zrmfpk7575-75-07 02:16:00* Test Item Value Reference Range Interpretation Comments Mean Corpuscular Volume (test code = 787-2) 85.2 81-99 [facility] ArlingtonMean Corpuscular Jhlzbpokhs0488-77-19 02:16:00* Test Item Value Reference Range Interpretation Comments Mean Corpuscular Hemoglobin (test code = 785-6) 25.3 28-32 L [facility] Hemoglobin Concent 2019-03-15 02:16:00* Test Item Value Reference Range Interpretation Comments Mean Corpuscular Hemoglobin Concent (test code = 786-4) 29.7 31-35 L [facility] ArlingtonRed Cell Distribution Fxxqk1365-22-37 02:16:00* Test Item Value Reference Range Interpretation Comments Red Cell Distribution Width (test code = 55999-3) 16.0 11.7 -14.4 H [facility] ArlingtonPlatelet Zpqoy4075-16-21 02:16:00* Test Item Value Reference Range Interpretation Comments Platelet Count (test code = 777-3) 175 140-360 [facility] ArlingtonNeutrophils (%) (Auto)2019-03-15 02:16:00 * Test Item Value Reference Range Interpretation Comments Neutrophils (%) (Auto) (test code = 71075-2) 71.8 38.7-80.0 [facility] ArlingtonLymphocytes (%) (Auto)2019-03-15 02:16:00 * Test Item Value Reference Range Interpretation Comments Lymphocytes (%) (Auto) (test code = 736-9) 20.1 18.0-39.1 [facility] ArlingtonMonocytes (%) (Auto)2019-03-15 02:16:00* Test Item Value Reference Range Interpretation Comments Monocytes (%) (Auto) (test code = 5905-5) 3.8 4.4-11.3 L [facility] ArlingtonEosinophils (%) (Auto)2019-03-15 02:16:00 * Test Item Value Reference Range Interpretation Comments Eosinophils (%) (Auto) (test code = 713-8) 1.8 0.0-6.0 [facility] ArlingtonBasophils (%) (Auto)2019-03-15 02:16:00* Test Item Value Reference Range Interpretation Comments Basophils (%) (Auto) (test code = 706-2) 0.9 0.0-1.0 [facility] ArlingtonIM GRANULOCYTES %2019-03-15 02:16:00* Test Item Value Reference Range Interpretation Comments IM GRANULOCYTES % (test code = IM GRANULOCYTES %) 1.6 0.0- 1.0 H [facility] ArlingtonNeutrophils # (Auto)2019-03-15 02:16:00* Test Item Value Reference Range Interpretation Comments Neutrophils # (Auto) (test code = 751-8) 4.0 2.1-6.9 [facility] ArlingtonLymphocytes # (Auto)2019-03-15 02:16:00* Test Item Value Reference Range Interpretation Comments Lymphocytes # (Auto) (test code = 00053-1) 1.1 1.0-3.2 [facility] ArlingtonMonocytes # (Auto)2019-03-15 02:16:00* Test Item Value Reference Range Interpretation Comments Monocytes # (Auto) (test code = 742-7) 0.2 0.2-0.8 [facility] ArlingtonEosinophils # (Auto)2019-03-15 02:16:00* Test Item Value Reference Range Interpretation Comments Eosinophils # (Auto) (test code = 711-2) 0.1 0.0-0.4 [facility] ArlingtonBasophils # (Auto)2019-03-15 02:16:00* Test Item Value Reference Range Interpretation Comments Basophils # (Auto) (test code = 704-7) 0.1 0.0-0.1 [facility] ArlingtonAbsolute Immature Granulocyte (auto 2019-03-15 02:16:00* Test Item Value Reference Range Interpretation Comments Absolute Immature Granulocyte (auto (joseph t code = Absolute Immature Granulocyte (auto) 0.09 0-0.1 [facility] ArlingtonBedside Diqhsvu3818-89-72 05:15:00* Test Item Value Reference Range Interpretation Comments Bedside Glucose (test code = 69889-9) 329 70-120 H Meter ID: [id number] Hospital at ArlingtonFOREARM LEFT 2 VIEW 2019-02-24 01:23:00 [facility] [address] [address] Patient Name: KALYANI TALAVERA MR #: [id number] : 1955 Age/Sex: 63/F Req #: [id number] Adm Physician: Ordered by: JACQUES JANE MD Report #: [id number] Location: ER Room/Bed: Procedure: 43 DX/FOREARM LEFT [...] 02/24/19123 COPY TO: JACQUES JANE MD Sodium Qhglf6466-37-69 00:35:00* Test Item Value Reference Range Interpretation Comments Sodium Level (test code = 2951-2) 135 136-145 L [facility] ArlingtonPotassium Zsyzs8292-52-95 00:35:00* Test Item Value Reference Range Interpretation Comments Potassium Level (test code = 2823-3) 4.4 3.5-5.1 [facility] ArlingtonChloride Anhlh4140-19-58 00:35:00* Test Item Value Reference Range Interpretation Comments Chloride Level (test code = 2075-0) 102 98-107 [facility] ArlingtonCarbon Dioxide Umcek6473-26-05 00:35:00* Test Item Value Reference Range Interpretation Comments Carbon Dioxide Level (test code = 2028-9) 21 22-29 L [facility] ArlingtonAnion Jeh2153-86-96 00:35:00* Test Item Value Reference Range Interpretation Comments Anion Gap (test code = 08083-0) 16.4 8-16 H [facility] ArlingtonBlood Urea Zwmymeiz3124-90-64 00:35:00* Test Item Value Reference Range Interpretation Comments Blood Urea Nitrogen (test code = 3094-0) 24 7-26 [facility] ArlingtonCreatinine2019-08-04 00:35:00* Test Item Value Reference Range Interpretation Comments Creatinine (test code = 2160-0) 1.44 0.57-1.11 H [facility] ArlingtonBUN/Creatinine Kgqrg2921-01-87 00:35:00* Test Item Value Reference Range Interpretation Comments BUN/Creatinine Ratio (test code = 3097-3) 17 6-25 [facility] ArlingtonEstimat Glomerular Filtration Rate 2019-02-24 00:35:00* Test Item Value Reference Range Interpretation Comments Estimat Glomerular Filtration Rate (test code = 367052967) 37 >60 L Ranges were taken from the National Kidney Disease Education Program and the Jenise [facility].Reference ranges:60 or greater: Dvjtqn72-03 ( for 3 consecutive months): Chronic kidney disease 15 or less: Kidney failureUSMD Hospital at ArlingtonGlucose Sozza8292-92-12 00:35:00* Test Item Value Reference Range Interpretation Comments Glucose Level (test code = PUS2066) 668 74118 Results repeated and called to SHILPA Jack at 0034 on 02/24/19 by Sagar Alegria. Malinda simpson back and verified.[facility] ArlingtonCalcium Level 2019-02-24 00:35:00* Test Item Value Reference Range Interpretation Comments Calcium Level (test code = 87682-2) 9.5 8.4-10.2 [facility] ArlingtonTotal Fbugfolen2922-32-95 00:35:00* Test Item Value Reference Range Interpretation Comments Total Bilirubin (test code = 1975-2) 0.3 0.2-1.2 [facility] ArlingtonAspartate Amino Transf (AST/SGOT) 2019-02-24 00:35:00* Test Item Value Reference Range Interpretation Comments Aspartate Amino Transf (AST/SGOT) (test code = Aspartate Amino Transf (AST/SGOT)) 12 5-34 [facility] ArlingtonAlanine Aminotransferase (ALT/SGPT) 2019-02-24 00:35:00* Test Item Value Reference Range Interpretation Comments Alanine Aminotransferase (ALT/SGPT) (test code = 1742-6) 23 0-55 [facility] Ptryvrv3778-03-69 00:35:00* Test Item Value Reference Range Interpretation Comments Total Protein (test code = 2885-2) 6.7 6.5-8.1 [facility] ArlingtonAlbumin2019-08-04 00:35:00* Test Item Value Reference Range Interpretation Comments Albumin (test code = 1751-7) 3.5 3.5-5.0 [facility] ArlingtonGlobulin2019-08-04 00:35:00* Test Item Value Reference Range Interpretation Comments Globulin (test code = 28276-2) 3.2 2.3-3.5 [facility] ArlingtonAlbumin/Globulin Sqpwv0094-35-21 00:35:00 * Test Item Value Reference Range Interpretation Comments Albumin/Globulin Ratio (test code = 1759-0) 1.1 0.8-2.0 [facility] ArlingtonAlkaline Ctsuxeekfil3498-50-10 00:35:00* Test Item Value Reference Range Interpretation Comments Alkaline Phosphatase (test code = 6768-6) 82 40-150 [facility] ArlingtonTotal Ehjxczifp2246-42-20 00:35:00* Test Item Value Reference Range Interpretation Comments Total Bilirubin (test code = 1975-2) 0.3 0.2-1.2 [facility] ArlingtonAspartate Amino Transf (AST/SGOT) 2019-02-24 00:35:00* Test Item Value Reference Range Interpretation Comments Aspartate Amino Transf (AST/SGOT) (test code = Aspartate Amino Transf (AST/SGOT)) 12 5-34 [facility] ArlingtonAlanine Aminotransferase (ALT/SGPT) 2019-02-24 00:35:00* Test Item Value Reference Range Interpretation Comments Alanine Aminotransferase (ALT/SGPT) (test code = 1742-6) 23 0-55 [facility] Xtezncj7377-24-79 00:35:00* Test Item Value Reference Range Interpretation Comments Total Protein (test code = 2885-2) 6.7 6.5-8.1 [facility] ArlingtonAlbumin2019-08-04 00:35:00* Test Item Value Reference Range Interpretation Comments Albumin (test code = 1751-7) 3.5 3.5-5.0 [facility] ArlingtonGlobulin2019-08-04 00:35:00* Test Item Value Reference Range Interpretation Comments Globulin (test code = 81459-7) 3.2 2.3-3.5 [facility] ArlingtonAlbumin/Globulin Cpifl4375-49-90 00:35:00 * Test Item Value Reference Range Interpretation Comments Albumin/Globulin Ratio (test code = 1759-0) 1.1 0.8-2.0 [facility] ArlingtonAlkaline Gwidiowxxux4792-26-25 00:35:00* Test Item Value Reference Range Interpretation Comments Alkaline Phosphatase (test code = 6768-6) 82 40-150 [facility] ArlingtonTotal Nvzeipxei2876-01-70 00:35:00* Test Item Value Reference Range Interpretation Comments Total Bilirubin (test code = 1975-2) 0.3 0.2-1.2 [facility]artate Amino Transf (AST/SGOT) 2019-02-24 00:35:00* Test Item Value Reference Range Interpretation Comments Aspartate Amino Transf (AST/SGOT) (test code = Aspartate Amino Transf (AST/SGOT)) [facility] Aminotransferase (ALT/SGPT) 2019-02-24 00:35:00* Test Item Value Reference Range Interpretation Comments Alanine Aminotransferase (ALT/SGPT) (test code = 1742-6) 23 0-55 [facility] ArlingtonTotal Nqonhak8770-15-16 00:35:00* Test Item Value Reference Range Interpretation Comments Total Protein (test code = 2885-2) 6.7 6.5-8.1 [facility]Albumin2019-08-04 00:35:00* Test Item Value Reference Range Interpretation Comments Albumin (test code = 1751-7) 3.5 3.5-5.0 [facility]obulin2019-08-04 00:35:00* Test Item Value Reference Range Interpretation Comments Globulin (test code = 50500-6) 3.2 2.3-3.5 [facility] ArlingtonAlbumin/Globulin Xitoz5868-57-10 00:35:00 * Test Item Value Reference Range Interpretation Comments Albumin/Globulin Ratio (test code = 1759-0) 1.1 0.8-2.0 [facility] ArlingtonAlkaline Rhlfwnviojq4428-85-95 00:35:00* Test Item Value Reference Range Interpretation Comments Alkaline Phosphatase (test code = 6768-6) 82 40-150 [facility] ArlingtonTotal Eaacctutz3124-81-19 00:35:00* Test Item Value Reference Range Interpretation Comments Total Bilirubin (test code = 1975-2) 0.3 0.2-1.2 [facility]ate Amino Transf (AST/SGOT) 2019-02-24 00:35:00* Test Item Value Reference Range Interpretation Comments Aspartate Amino Transf (AST/SGOT) (test code = Aspartate Amino Transf (AST/SGOT)) [facility] Amin[facility] (ALT/SGPT) 2019-02-24 00:35:00* Test Item Value Reference Range Interpretation Comments Alanine Aminotransferase (ALT/SGPT) (test code = 1742-6) 23 0-55 [facility] ArlingtonTotal Ajetsep0507-63-92 00:35:00* Test Item Value Reference Range Interpretation Comments Total Protein (test code = 2885-2) 6.7 6.5-8.1 [facility] ArlingtonAlbumin2019-08-04 00:35:00* Test Item Value Reference Range Interpretation Comments Albumin (test code = 1751-7) 3.5 3.5-5.0 [facility]Globulin2019-08-04 00:35:00* Test Item Value Reference Range Interpretation Comments Globulin (test code = 37547-3) 3.2 2.3-3.5 [facility] ArlingtonAlbumin/Globulin Gvtfr3361-48-08 00:35:00 * Test Item Value Reference Range Interpretation Comments Albumin/Globulin Ratio (test code = 1759-0) 1.1 0.8-2.0 [facility] ArlingtonAlkaline Dnrqdldqivp8935-02-15 00:35:00* Test Item Value Reference Range Interpretation Comments Alkaline Phosphatase (test code = 6768-6) 82 40-150 [facility] ArlingtonTotal Sbadyyvxl2543-60-12 00:35:00* Test Item Value Reference Range Interpretation Comments Total Bilirubin (test code = 1975-2) 0.3 0.2-1.2 [facility] ArlingtonAspartate Amino Transf (AST/SGOT) 2019-02-24 00:35:00* Test Item Value Reference Range Interpretation Comments Aspartate Amino Transf (AST/SGOT) (test code = Aspartate Amino Transf (AST/SGOT)) [facility]Al[facility] Aminotransferase (ALT/SGPT) 2019-02-24 00:35:00* Test Item Value Reference Range Interpretation Comments Alanine Aminotransferase (ALT/SGPT) (test code = 1742-6) 23 0-55 [facility] ArlingtonTotal Xukkhej7049-02-11 00:35:00* Test Item Value Reference Range Interpretation Comments Total Protein (test code = 2885-2) 6.7 6.5-8.1 [facility] ArlingtonAlbumin2019-08-04 00:35:00* Test Item Value Reference Range Interpretation Comments Albumin (test code = 1751-7) 3.5 3.5-5.0 [facility] ArlingtonGlobulin2019-08-04 00:35:00* Test Item Value Reference Range Interpretation Comments Globulin (test code = 54484-1) 3.2 2.3-3.5 [facility] ArlingtonAlbumin/Globulin Pmzzs7139-32-50 00:35:00 * Test Item Value Reference Range Interpretation Comments Albumin/Globulin Ratio (test code = 1759-0) 1.1 0.8-2.0 [facility] ArlingtonAlkaline Rgoyiojmljo0426-29-64 00:35:00* Test Item Value Reference Range Interpretation Comments Alkaline Phosphatase (test code = 6768-6) 82 40-150 [facility] ArlingtonWhite Blood Bvaiz3157-03-71 00:18:00* Test Item Value Reference Range Interpretation Comments White Blood Count (test code = 6690-2) 5.09 4.8-10.8 [facility] ArlingtonRed Blood Knkzh1636-63-12 00:18:00* Test Item Value Reference Range Interpretation Comments Red Blood Count (test code = 789-8) 4.64 3.6-5.1 [facility]Hemoglobin2019-08-04 00:18:00* Test Item Value Reference Range Interpretation Comments Hemoglobin (test code = 68146-8) 11.8 12.0-16.0 L [facility]Hematocrit2019-08-04 00:18:00* Test Item Value Reference Range Interpretation Comments Hematocrit (test code = 4544-3) 37.6 34.2-44.1 [facility] ArlingtonMean Corpuscular Enoiuk4311-07-37 00:18:00* Test Item Value Reference Range Interpretation Comments Mean Corpuscular Volume (test code = 787-2) 81.0 81-99 [facility] ArlingtonMean Corpuscular Zvlllodayx5681-52-93 00:18:00* Test Item Value Reference Range Interpretation Comments Mean Corpuscular Hemoglobin (test code = 785-6) 25.4 28-32 L [facility] ArlingtonMean Corpuscular Hemoglobin Concent 2019-02-24 00:18:00* Test Item Value Reference Range Interpretation Comments Mean Corpuscular Hemoglobin Concent (test code = 786-4) 31.4 31-35 [facility] ArlingtonRed Cell Distribution Mdplt7113-94-43 00:18:00* Test Item Value Reference Range Interpretation Comments Red Cell Distribution Width (test code = 58681-7) 15.5 11.7 -14.4 H [facility] ArlingtonPlatelet Cjvwq5031-57-13 00:18:00* Test Item Value Reference Range Interpretation Comments Platelet Count (test code = 777-3) 155 140-360 [facility] ArlingtonNeutrophils (%) (Auto)2019-02-24 00:18:00 * Test Item Value Reference Range Interpretation Comments Neutrophils (%) (Auto) (test code = 04329-0) 69.6 38.7-80.0 [facility] ArlingtonLymphocytes (%) (Auto)2019-02-24 00:18:00 * Test Item Value Reference Range Interpretation Comments Lymphocytes (%) (Auto) (test code = 736-9) 20.0 18.0-39.1 [facility] ArlingtonMonocytes (%) (Auto)2019-02-24 00:18:00* Test Item Value Reference Range Interpretation Comments Monocytes (%) (Auto) (test code = 5905-5) 5.1 4.4-11.3 [facility]Eosinophils (%) (Auto)2019-02-24 00:18:00 * Test Item Value Reference Range Interpretation Comments Eosinophils (%) (Auto) (test code = 713-8) 3.3 0.0-6.0 [facility]Basophils (%) (Auto)2019-02-24 00:18:00* Test Item Value Reference Range Interpretation Comments Basophils (%) (Auto) (test code = 706-2) 1.0 0.0-1.0 [facility] ArlingtonIM GRANULOCYTES %2019-02-24 00:18:00* Test Item Value Reference Range Interpretation Comments IM GRANULOCYTES % (test code = IM GRANULOCYTES %) 1.0 0.0- 1.0 [facility] ArlingtonNeutrophils # (Auto)2019-02-24 00:18:00* Test Item Value Reference Range Interpretation Comments Neutrophils # (Auto) (test code = 751-8) 3.5 2.1-6.9 [facility] ArlingtonLymphocytes # (Auto)2019-02-24 00:18:00* Test Item Value Reference Range Interpretation Comments Lymphocytes # (Auto) (test code = 96432-7) 1.0 1.0-3.2 [facility] ArlingtonMonocytes # (Auto)2019-02-24 00:18:00* Test Item Value Reference Range Interpretation Comments Monocytes # (Auto) (test code = 742-7) 0.3 0.2-0.8 [facility]Eosinophils # (Auto)2019-02-24 00:18:00* Test Item Value Reference Range Interpretation Comments Eosinophils # (Auto) (test code = 711-2) 0.2 0.0-0.4 [facility]Basophils # (Auto)2019-02-24 00:18:00* Test Item Value Reference Range Interpretation Comments Basophils # (Auto) (test code = 704-7) 0.1 0.0-0.1 [facility] ArlingtonAbsolute Immature Granulocyte (auto 2019-02-24 00:18:00* Test Item Value Reference Range Interpretation Comments Absolute Immature Granulocyte (auto (joseph t code = Absolute Immature Granulocyte (auto) 0.05 0-0.1 [facility] ArlingtonBedside Cffpqmf3995-12-49 12:27:00* Test Item Value Reference Range Interpretation Comments Bedside Glucose (test code = 57312-0) 302 70-120 H Meter ID: [id number] Trail [facility] Hospitalodium Level 2019-01-21 06:25:00* Test Item Value Reference Range Interpretation Comments Sodium Level (test code = 2951-2) 137 136-145 [facility] ArlingtonPotassium Fcqjf3886-62-54 06:25:00* Test Item Value Reference Range Interpretation Comments Potassium Level (test code = 2823-3) 4.8 3.5-5.1 [facility] ArlingtonChloride Jbded6564-22-17 06:25:00* Test Item Value Reference Range Interpretation Comments Chloride Level (test code = 2075-0) 101 98-107 [facility] ArlingtonCarbon Dioxide Ensfi6133-21-17 06:25:00* Test Item Value Reference Range Interpretation Comments Carbon Dioxide Level (test code = 2028-9) 29 22-29 [facility] ArlingtonAnion Pca8568-11-67 06:25:00* Test Item Value Reference Range Interpretation Comments Anion Gap (test code = 52514-7) 11.8 8-16 [facility] ArlingtonBlood Urea Dqfngrnl4616-19-87 06:25:00* Test Item Value Reference Range Interpretation Comments Blood Urea Nitrogen (test code = 3094-0) 17 7-26 [facility] ArlingtonCreatinine2019-07-01 06:25:00* Test Item Value Reference Range Interpretation Comments Creatinine (test code = 2160-0) 0.98 0.57-1.11 [facility] ArlingtonBUN/Creatinine Rybqy3068-17-92 06:25:00* Test Item Value Reference Range Interpretation Comments BUN/Creatinine Ratio (test code = 3097-3) 17 6-25 [facility] ArlingtonEstimat Glomerular Filtration Rate 2019-01-21 06:25:00* Test Item Value Reference Range Interpretation Comments Estimat Glomerular Filtration Rate (test code = 599693934) 58 >60 L Ranges were taken from the National Kidney Disease Education Program and the Jenise counts include [facility] literature.Reference ranges:60 or greater: Qmlbqd84-05 ( for 3 consecutive months): Chronic kidney disease 15 or less: Kidney failureCHI [facility] HospitalGlucose Sustu9270-42-57 06:25:00* Test Item Value Reference Range Interpretation Comments Glucose Level (test code = YVE4530) 252 74-118 H [facility] ArlingtonCalcium Erucq5893-75-56 06:25:00* Test Item Value Reference Range Interpretation Comments Calcium Level (test code = 73178-7) 9.2 8.4-10.2 [facility] ArlingtonTotal Ysbcgqodk8854-28-85 06:25:00* Test Item Value Reference Range Interpretation Comments Total Bilirubin (test code = 1975-2) 0.2 0.2-1.2 [facility] ArlingtonAspartate Amino Transf (AST/SGOT) 2019-01-21 06:25:00* Test Item Value Reference Range Interpretation Comments Aspartate Amino Transf (AST/SGOT) (test code = Aspartate Amino Transf (AST/SGOT)) 13 5-34 [facility] ArlingtonAlanine Aminotransferase (ALT/SGPT) 2019-01-21 06:25:00* Test Item Value Reference Range Interpretation Comments Alanine Aminotransferase (ALT/SGPT) (test code = 1742-6) 17 0-55 [facility] ArlingtonTotal Kufucyi7346-67-12 06:25:00* Test Item Value Reference Range Interpretation Comments Total Protein (test code = 2885-2) 6.3 6.5-8.1 L [facility] ArlingtonAlbumin2019-07-01 06:25:00* Test Item Value Reference Range Interpretation Comments Albumin (test code = 1751-7) 3.2 3.5-5.0 L [facility] ArlingtonGlobulin2019-07-01 06:25:00* Test Item Value Reference Range Interpretation Comments Globulin (test code = 93307-6) 3.1 2.3-3.5 [facility] ArlingtonAlbumin/Globulin Yknwq4010-71-96 06:25:00 * Test Item Value Reference Range Interpretation Comments Albumin/Globulin Ratio (test code = 1759-0) 1.0 0.8-2.0 [facility] ArlingtonAlkaline Qotrnjmqjse8554-49-88 06:25:00* Test Item Value Reference Range Interpretation Comments Alkaline Phosphatase (test code = 6768-6) 78 40-150 [facility] ArlingtonWhite Blood Muzde2407-79-99 06:21:00* Test Item Value Reference Range Interpretation Comments White Blood Count (test code = 6690-2) 4.81 4.8-10.8 [facility] ArlingtonRed Blood Uqftk3112-73-97 06:21:00* Test Item Value Reference Range Interpretation Comments Red Blood Count (test code = 789-8) 4.90 3.6-5.1 [facility] ArlingtonHemoglobin2019-07-01 06:21:00* Test Item Value Reference Range Interpretation Comments Hemoglobin (test code = 06903-2) 12.0 12.0-16.0 [facility] ArlingtonHematocrit2019-07-01 06:21:00* Test Item Value Reference Range Interpretation Comments Hematocrit (test code = 4544-3) 39.4 34.2-44.1 [facility] ArlingtonMean Corpuscular Dcmwpe2547-76-27 06:21:00* Test Item Value Reference Range Interpretation Comments Mean Corpuscular Volume (test code = 787-2) 80.4 81-99 L [facility] ArlingtonMean Corpuscular Uoxxjmkkpc8673-20-42 06:21:00* Test Item Value Reference Range Interpretation Comments Mean Corpuscular Hemoglobin (test code = 785-6) 24.5 28-32 L [facility] ArlingtonMean Corpuscular Hemoglobin Concent 2019-01-21 06:21:00* Test Item Value Reference Range Interpretation Comments Mean Corpuscular Hemoglobin Concent (test code = 786-4) 30.5 31-35 L [facility] ArlingtonRed Cell Distribution Sfano3633-83-19 06:21:00* Test Item Value Reference Range Interpretation Comments Red Cell Distribution Width (test code = 77117-2) 14.6 11.7 -14.4 H [facility] ArlingtonPlatelet Oymlh0405-94-52 06:21:00* Test Item Value Reference Range Interpretation Comments Platelet Count (test code = 777-3) 157 140-360 [facility] ArlingtonNeutrophils (%) (Auto)2019-01-21 06:21:00 * Test Item Value Reference Range Interpretation Comments Neutrophils (%) (Auto) (test code = 78961-3) 62.2 38.7-80.0 [facility] ArlingtonLymphocytes (%) (Auto)2019-01-21 06:21:00 * Test Item Value Reference Range Interpretation Comments Lymphocytes (%) (Auto) (test code = 736-9) 25.8 18.0-39.1 [facility] ArlingtonMonocytes (%) (Auto)2019-01-21 06:21:00* Test Item Value Reference Range Interpretation Comments Monocytes (%) (Auto) (test code = 5905-5) 5.8 4.4-11.3 [facility] ArlingtonEosinophils (%) (Auto)2019-01-21 06:21:00 * Test Item Value Reference Range Interpretation Comments Eosinophils (%) (Auto) (test code = 713-8) 5.0 0.0-6.0 [facility] ArlingtonBasophils (%) (Auto)2019-01-21 06:21:00* Test Item Value Reference Range Interpretation Comments Basophils (%) (Auto) (test code = 706-2) 0.6 0.0-1.0 [facility] ArlingtonIM GRANULOCYTES %2019-01-21 06:21:00* Test Item Value Reference Range Interpretation Comments IM GRANULOCYTES % (test code = IM GRANULOCYTES %) 0.6 0.0- 1.0 [facility] ArlingtonNeutrophils # (Auto)2019-01-21 06:21:00* Test Item Value Reference Range Interpretation Comments Neutrophils # (Auto) (test code = 751-8) 3.0 2.1-6.9 [facility] ArlingtonLymphocytes # (Auto)2019-01-21 06:21:00* Test Item Value Reference Range Interpretation Comments Lymphocytes # (Auto) (test code = 01087-7) 1.2 1.0-3.2 [facility] ArlingtonMonocytes # (Auto)2019-01-21 06:21:00* Test Item Value Reference Range Interpretation Comments Monocytes # (Auto) (test code = 742-7) 0.3 0.2-0.8 [facility]Eosinophils # (Auto)2019-01-21 06:21:00* Test Item Value Reference Range Interpretation Comments Eosinophils # (Auto) (test code = 711-2) 0.2 0.0-0.4 [facility]Basophils # (Auto)2019-01-21 06:21:00* Test Item Value Reference Range Interpretation Comments Basophils # (Auto) (test code = 704-7) 0.0 0.0-0.1 [facility] ArlingtonAbsolute Immature Granulocyte (auto 2019-01-21 06:21:00* Test Item Value Reference Range Interpretation Comments Absolute Immature Granulocyte (auto (joseph t code = Absolute Immature Granulocyte (auto) 0.03 0-0.1 [facility] ArlingtonCholesterol Qsbis6226-17-82 15:27:00* Test Item Value Reference Range Interpretation Comments Cholesterol Level (test code = 2093-3) 171 0-199 Less than 200 mg/dL Low Odwr133 - 239 mg/dL Borderline Jpze112 m g/dl and greater High Risk [facility] ArlingtonLDL Ifmlrbiivof7544-52-78 15:27:00* Test Item Value Reference Range Interpretation Comments LDL Cholesterol (test code = 2089-1) 103 60-130 [facility] ArlingtonHDL Dhzftwgaify7096-45-44 15:27:00* Test Item Value Reference Range Interpretation Comments HDL Cholesterol (test code = 2085-9) 30 40-60 L [facility] ArlingtonCholesterol/HDL Isycw6889-51-43 15:27:00 * Test Item Value Reference Range Interpretation Comments Cholesterol/HDL Ratio (test code = 9830-1) 5.7 3.0-3.6 H [facility] ArlingtonCholesterol Illil0785-56-63 15:27:00* Test Item Value Reference Range Interpretation Comments Cholesterol Level (test code = 2093-3) 171 0-199 Less than 200 mg/dL Low Medq675 - 239 mg/dL Borderline Tptj859 m g/dl and greater High Risk [facility] ArlingtonLDL Qzefsjlefeo1222-88-82 15:27:00* Test Item Value Reference Range Interpretation Comments LDL Cholesterol (test code = 2089-1) 103 60-130 [facility] Cgkzwgptaid2320-43-64 15:27:00* Test Item Value Reference Range Interpretation Comments HDL Cholesterol (test code = 2085-9) 30 40-60 L [facility]Ch[facility]/HDL Xugio3231-34-73 15:27:00 * Test Item Value Reference Range Interpretation Comments Cholesterol/HDL Ratio (test code = 9830-1) 5.7 3.0-3.6 H [facility] ArlingtonCholesterol Opwhi5316-33-89 15:27:00* Test Item Value Reference Range Interpretation Comments Cholesterol Level (test code = 3-3) 171 0-199 Less than 200 mg/dL Low Dooo914 - 239 mg/dL Borderline Kauk427 m g/dl and greater High Risk [facility] Ifrnywmracl0054-36-76 15:27:00* Test Item Value Reference Range Interpretation Comments LDL Cholesterol (test code = 2089-1) 103 60-130 [facility] Iomkuyvsscq2868-41-22 15:27:00* Test Item Value Reference Range Interpretation Comments HDL Cholesterol (test code = 2085-9) 30 40-60 L [facility]Ch[facility]/HDL Ygtoz1895-76-30 15:27:00 * Test Item Value Reference Range Interpretation Comments Cholesterol/HDL Ratio (test code = 9830-1) 5.7 3.0-3.6 H [facility] ArlingtonCholesterol Hkgei2620-65-61 15:27:00* Test Item Value Reference Range Interpretation Comments Cholesterol Level (test code = 3-3) 171 0-199 Less than 200 mg/dL Low Yjlv993 - 239 mg/dL Borderline Ifvd415 m g/dl and greater High Risk [facility] Gvvdbaaojnc0679-57-91 15:27:00* Test Item Value Reference Range Interpretation Comments LDL Cholesterol (test code = 2089-1) 103 60-130 [facility] Sbmrwzntuza1668-28-57 15:27:00* Test Item Value Reference Range Interpretation Comments HDL Cholesterol (test code = 2085-9) 30 40-60 L [facility]Ch[facility]/HDL Zbffh2584-19-99 15:27:00 * Test Item Value Reference Range Interpretation Comments Cholesterol/HDL Ratio (test code = 9830-1) 5.7 3.0-3.6 H [facility] ArlingtonCholesterol Jiqle5616-97-71 15:27:00* Test Item Value Reference Range Interpretation Comments Cholesterol Level (test code = 2093-3) 171 0-199 Less than 200 mg/dL Low Vwck843 - 239 mg/dL Borderline Ulvl430 m g/dl and greater High Risk [facility] ArlingtonLDL Mtpgcwbayff4804-02-70 15:27:00* Test Item Value Reference Range Interpretation Comments LDL Cholesterol (test code = 2089-1) 103 60-130 [facility] Bqabihemdql2135-33-44 15:27:00* Test Item Value Reference Range Interpretation Comments HDL Cholesterol (test code = 2085-9) 30 40-60 L [facility]Ch[facility]/HDL Tpfoj5305-75-31 15:27:00 * Test Item Value Reference Range Interpretation Comments Cholesterol/HDL Ratio (test code = 9830-1) 5.7 3.0-3.6 H [facility] ArlingtonCholesterol Eieky5618-33-02 15:27:00* Test Item Value Reference Range Interpretation Comments Cholesterol Level (test code = 2093-3) 171 0-199 Less than 200 mg/dL Low Bhbh379 - 239 mg/dL Borderline Yykd772 m g/dl and greater High Risk [facility] ArlingtonLDL Ypilbtuqcjf1096-65-70 15:27:00* Test Item Value Reference Range Interpretation Comments LDL Cholesterol (test code = 2089-1) 103 60-130 [facility] Opkxfwqseub2245-05-33 15:27:00* Test Item Value Reference Range Interpretation Comments HDL Cholesterol (test code = 2085-9) 30 40-60 L [facility]Ch[facility]/HDL Fkajp6380-05-00 15:27:00 * Test Item Value Reference Range Interpretation Comments Cholesterol/HDL Ratio (test code = 9830-1) 5.7 3.0-3.6 H [facility] ArlingtonTriglycerides Jwrlc8414-59-53 13:34:00* Test Item Value Reference Range Interpretation Comments Triglycerides Level (test code = 2571-8) 190 0-149 H [facility] ArlingtonTriglycerAtrium Health [facility] CenterPkpqa3710-70-89 13:34:00* Test Item Value Reference Range Interpretation Comments Triglycerides Level (test code = 2571-8) 190 0-149 H [facility] ArlingtonTriglycerpunxsutawney [facility] Wvtgi2168-58-68 13:34:00* Test Item Value Reference Range Interpretation Comments Triglycerides Level (test code = 2571-8) 190 0-149 H [facility] ArlingtonTriglycerAtrium Health [facility] Medical CenterHyhmg5519-04-10 13:34:00* Test Item Value Reference Range Interpretation Comments Triglycerides Level (test code = 2571-8) 190 0-149 H [facility] ArlingtonTriglycerAtrium Health [facility] Medical CenterPwrzp5469-67-30 13:34:00* Test Item Value Reference Range Interpretation Comments Triglycerides Level (test code = 2571-8) 190 0-149 H [facility] FallslycerAtrium Health [facility] Medical CenterJhsmk1586-53-01 13:34:00* Test Item Value Reference Range Interpretation Comments Triglycerides Level (test code = 2571-8) 190 0-149 H [facility] Occult Eymca1991-41-53 09:04:00* Test Item Value Reference Range Interpretation Comments Stool Occult Blood (test code = 2335-8) POSITIVE NEGATIVE [facility] Occult Khsln2952-73-74 09:04:00* Test Item Value Reference Range Interpretation Comments Stool Occult Blood (test code = 2335-8) POSITIVE NEGATIVE [facility] Occult Zpphx6018-25-35 09:04:00* Test Item Value Reference Range Interpretation Comments Stool Occult Blood (test code = 2335-8) POSITIVE NEGATIVE [facility] Occult Msdba9163-55-71 09:04:00* Test Item Value Reference Range Interpretation Comments Stool Occult Blood (test code = 2335-8) POSITIVE NEGATIVE [facility] Occult Pwoxi3462-33-21 09:04:00* Test Item Value Reference Range Interpretation Comments Stool Occult Blood (test code = 2335-8) POSITIVE NEGATIVE [facility] Occult Xtvdr0608-92-95 09:04:00* Test Item Value Reference Range Interpretation Comments Stool Occult Blood (test code = 2335-8) POSITIVE NEGATIVE [facility]ulating Hormone (TSH) 2019-01-18 06:48:00* Test Item Value Reference Range Interpretation Comments Thyroid Stimulating Hormone (TSH) (test code = 28397-6) 0.428 0.350-4.940 [facility]Th[facility] (TSH) 2019-01-18 06:48:00* Test Item Value Reference Range Interpretation Comments Thyroid Stimulating Hormone (TSH) (test code = 81115-2) 0.428 0.350-4.940 [facility]Th[facility]ulating H[facility]one (TSH) 2019-01-18 06:48:00* Test Item Value Reference Range Interpretation Comments Thyroid Stimulating Hormone (TSH) (test code = 81843-7) 0.428 0.350-4.940 [facility]Th[facility] H[facility]one (TSH) 2019-01-18 06:48:00* Test Item Value Reference Range Interpretation Comments Thyroid Stimulating Hormone (TSH) (test code = 22467-5) 0.428 0.350-4.940 [facility]Th[facility]ulating H[facility]one (TSH) 2019-01-18 06:48:00* Test Item Value Reference Range Interpretation Comments Thyroid Stimulating Hormone (TSH) (test code = 96353-2) 0.428 0.350-4.940 [facility]Th[facility]one (TSH) 2019-01-18 06:48:00* Test Item Value Reference Range Interpretation Comments Thyroid Stimulating Hormone (TSH) (test code = 21368-3) 0.428 0.350-4.940 [facility] ArlingtonFree Svbtjsivw8495-40-32 15:32:00* Test Item Value Reference Range Interpretation Comments Free Thyroxine (test code = 3024-7) 1.05 0.8-1.8 [facility] [facility] Lxqmqyncf4068-35-53 15:32:00* Test Item Value Reference Range Interpretation Comments Free Thyroxine (test code = 3024-7) 1.05 0.8-1.8 [facility] Rpwjdkcqk3511-20-41 15:32:00* Test Item Value Reference Range Interpretation Comments Free Thyroxine (test code = 3024-7) 1.05 0.8-1.8 [facility] Dycapefew0342-61-79 15:32:00* Test Item Value Reference Range Interpretation Comments Free Thyroxine (test code = 3024-7) 1.05 0.8-1.8 [facility] Cqryqzwub8776-21-34 15:32:00* Test Item Value Reference Range Interpretation Comments Free Thyroxine (test code = 3024-7) 1.05 0.8-1.8 [facility] Lhrvffpbu0048-78-91 15:32:00* Test Item Value Reference Range Interpretation Comments Free Thyroxine (test code = 3024-7) 1.05 0.8-1.8 [facility] Lcvjwr6190-81-15 14:58:00* Test Item Value Reference Range Interpretation Comments Creatine Kinase (test code = 2157-6) 23 29-168 L [facility] LB8887-49-81 14:58:00* Test Item Value Reference Range Interpretation Comments Creatine Kinase MB (test code = 78998-6) 0.60 0-5.0 [facility] F5574-43-09 14:58:00* Test Item Value Reference Range Interpretation Comments Troponin I (test code = KMQ6681) < 0.001 0-0.300 [facility] Fyivva2927-29-42 14:58:00* Test Item Value Reference Range Interpretation Comments Creatine Kinase (test code = 2157-6) 23 29-168 L [facility] RI3650-45-03 14:58:00* Test Item Value Reference Range Interpretation Comments Creatine Kinase MB (test code = 63819-1) 0.60 0-5.0 [place] 62314019-06-27 14:58:00* Test Item Value Reference Range Interpretation Comments Troponin I (test code = SHQ6941) < 0.001 0-0.300 [facility] Umejij2761-91-03 14:58:00* Test Item Value Reference Range Interpretation Comments Creatine Kinase (test code = 2157-6) 23 29-168 L [facility] IX6684-18-17 14:58:00* Test Item Value Reference Range Interpretation Comments Creatine Kinase MB (test code = 02622-4) 0.60 0-5.0 [place] 62314019-06-27 14:58:00* Test Item Value Reference Range Interpretation Comments Troponin I (test code = POD2299) < 0.001 0-0.300 [facility] Ccaqtg2558-16-22 14:58:00* Test Item Value Reference Range Interpretation Comments Creatine Kinase (test code = 2157-6) 23 29-168 L [facility] FW9874-86-77 14:58:00* Test Item Value Reference Range Interpretation Comments Creatine Kinase MB (test code = 51114-6) 0.60 0-5.0 [place] 62314019-06-27 14:58:00* Test Item Value Reference Range Interpretation Comments Troponin I (test code = KPX0902) < 0.001 0-0.300 [facility] Qqpqit6868-46-78 14:58:00* Test Item Value Reference Range Interpretation Comments Creatine Kinase (test code = 2157-6) 23 29-168 L [facility] BU1078-07-14 14:58:00* Test Item Value Reference Range Interpretation Comments Creatine Kinase MB (test code = 86912-0) 0.60 0-5.0 [place] 62314019-06-27 14:58:00* Test Item Value Reference Range Interpretation Comments Troponin I (test code = ZXY5168) < 0.001 0-0.300 [facility] Fjrjjn0892-90-91 14:58:00* Test Item Value Reference Range Interpretation Comments Creatine Kinase (test code = 2157-6) 23 29-168 L [facility] FQ8149-58-78 14:58:00* Test Item Value Reference Range Interpretation Comments Creatine Kinase MB (test code = 44132-7) 0.60 0-5.0 [facility] N9569-00-79 14:58:00* Test Item Value Reference Range Interpretation Comments Troponin I (test code = ETZ5182) < 0.001 0-0.300 [facility] Xhkwvqh3886-99-06 14:27:00 * Test Item Value Reference Range Interpretation Comments Hemoglobin A1c Percent (test code = Hemoglobin A1c Percent) 11.6 4.0-7.0 H [facility] Hhmfvmy8717-10-27 14:27:00 * Test Item Value Reference Range Interpretation Comments Hemoglobin A1c Percent (test code = Hemoglobin A1c Percent) 11.6 4.0-7.0 H [facility] Kcposyk6742-27-01 14:27:00 * Test Item Value Reference Range Interpretation Comments Hemoglobin A1c Percent (test code = Hemoglobin A1c Percent) 11.6 4.0-7.0 H [facility] Tlfvpkr4123-20-67 14:27:00 * Test Item Value Reference Range Interpretation Comments Hemoglobin A1c Percent (test code = Hemoglobin A1c Percent) 11.6 4.0-7.0 H [facility] Afglaik8408-63-71 14:27:00 * Test Item Value Reference Range Interpretation Comments Hemoglobin A1c Percent (test code = Hemoglobin A1c Percent) 11.6 4.0-7.0 H [facility] Vkzruwi2164-90-74 14:27:00 * Test Item Value Reference Range Interpretation Comments Hemoglobin A1c Percent (test code = Hemoglobin A1c Percent) 11.6 4.0-7.0 H [facility] Ybkacvv2743-97-52 06:11:00* Test Item Value Reference Range Interpretation Comments B-Type Natriuretic Peptide (test code = 01203-8) 14.3 0-100 [facility] Rdtvlys8695-22-79 06:11:00* Test Item Value Reference Range Interpretation Comments B-Type Natriuretic Peptide (test code = 06018-3) 14.3 0-100 [facility] Iiyrude3579-92-50 06:11:00* Test Item Value Reference Range Interpretation Comments B-Type Natriuretic Peptide (test code = 93042-5) 14.3 0-100 [facility] Sippgsh8726-48-22 06:11:00* Test Item Value Reference Range Interpretation Comments B-Type Natriuretic Peptide (test code = 85363-7) 14.3 0-100 [facility] Omvyuoq5042-20-20 06:11:00* Test Item Value Reference Range Interpretation Comments B-Type Natriuretic Peptide (test code = 62316-5) 14.3 0-100 [facility] Scikuic7419-37-87 06:11:00* Test Item Value Reference Range Interpretation Comments B-Type Natriuretic Peptide (test code = 83198-4) 14.3 0-100 [facility] COI6957-41-26 21:13:00* Test Item Value Reference Range Interpretation Comments Urine WBC (test code = 5821-4) NONE 0-5 [facility] GCT5848-20-90 21:13:00* Test Item Value Reference Range Interpretation Comments Urine RBC (test code = 85345-0) NONE 0-5 [facility] Qrflatyd9659-96-43 21:13:00* Test Item Value Reference Range Interpretation Comments Urine Bacteria (test code = 80672-6) FEW NONE [facility]helial Jdijw7002-70-71 21:13:00 * Test Item Value Reference Range Interpretation Comments Urine Epithelial Cells (test code = 31754-7) MANY NONE [facility] MAB5822-20-97 21:13:00* Test Item Value Reference Range Interpretation Comments Urine WBC (test code = 5821-4) NONE 0-5 [facility] XWH4074-29-39 21:13:00* Test Item Value Reference Range Interpretation Comments Urine RBC (test code = 37868-5) NONE 0-5 [facility] Thleuukw6320-31-33 21:13:00* Test Item Value Reference Range Interpretation Comments Urine Bacteria (test code = 63480-7) FEW NONE [facility] Epithelial Ctkms9854-11-57 21:13:00 * Test Item Value Reference Range Interpretation Comments Urine Epithelial Cells (test code = 06703-1) MANY NONE [facility] RRW7677-07-68 21:13:00* Test Item Value Reference Range Interpretation Comments Urine WBC (test code = 5821-4) NONE 0-5 [facility] AFJ6986-56-96 21:13:00* Test Item Value Reference Range Interpretation Comments Urine RBC (test code = 35076-0) NONE 0-5 [facility] Xlkvmgdq7278-42-43 21:13:00* Test Item Value Reference Range Interpretation Comments Urine Bacteria (test code = 81884-1) FEW NONE [facility] Feonv6815-53-59 21:13:00 * Test Item Value Reference Range Interpretation Comments Urine Epithelial Cells (test code = 40634-2) MANY NONE [facility] ZFU1837-18-79 21:13:00* Test Item Value Reference Range Interpretation Comments Urine WBC (test code = 5821-4) NONE 0-5 [facility] VWC0769-24-72 21:13:00* Test Item Value Reference Range Interpretation Comments Urine RBC (test code = 36609-0) NONE 0-5 [facility] Noaerfqp8659-67-46 21:13:00* Test Item Value Reference Range Interpretation Comments Urine Bacteria (test code = 18559-5) FEW NONE [facility]helial Tbrxx8370-16-11 21:13:00 * Test Item Value Reference Range Interpretation Comments Urine Epithelial Cells (test code = 96220-1) MANY NONE [facility] SUV9624-78-20 21:13:00* Test Item Value Reference Range Interpretation Comments Urine WBC (test code = 5821-4) NONE 0-5 [facility] NOP1344-78-31 21:13:00* Test Item Value Reference Range Interpretation Comments Urine RBC (test code = 51375-4) NONE 0-5 [facility] Skhtlpih7766-45-46 21:13:00* Test Item Value Reference Range Interpretation Comments Urine Bacteria (test code = 14096-2) FEW NONE [facility] Ep[facility]helial Vtdvr3312-28-96 21:13:00 * Test Item Value Reference Range Interpretation Comments Urine Epithelial Cells (test code = 78379-8) MANY NONE [facility] MNH1876-90-58 21:13:00* Test Item Value Reference Range Interpretation Comments Urine WBC (test code = 5821-4) NONE 0-5 [facility] POP4587-31-37 21:13:00* Test Item Value Reference Range Interpretation Comments Urine RBC (test code = 89320-1) NONE 0-5 [facility] Bhpnmnam0621-66-52 21:13:00* Test Item Value Reference Range Interpretation Comments Urine Bacteria (test code = 01668-8) FEW NONE [facility] Ep[facility]helial Xgixl8745-10-35 21:13:00 * Test Item Value Reference Range Interpretation Comments Urine Epithelial Cells (test code = 73326-2) MANY NONE [facility] Xsjdb7427-40-59 21:08:00* Test Item Value Reference Range Interpretation Comments Urine Color (test code = 5778-6) YELLOW YELLOW [facility] Adelfzy9478-03-40 21:08:00* Test Item Value Reference Range Interpretation Comments Urine Clarity (test code = 95328-1) CLEAR CLEAR [facility] Specific Ymeenhm4579-15-56 21:08:00 * Test Item Value Reference Range Interpretation Comments Urine Specific [place] (test code = 5811-5) <=1.005 1.010-1.02 5 [facility] zW9310-77-30 21:08:00* Test Item Value Reference Range Interpretation Comments Urine pH (test code = 54633-3) 6 5-7 [facility] Leukocyte Zroszgcu5135-31-25 21:08:00* Test Item Value Reference Range Interpretation Comments Urine Leukocyte Esterase (test code = 67099-3) NEGATIVE NEGATIV E [facility] Khxtjjv6503-44-19 21:08:00* Test Item Value Reference Range Interpretation Comments Urine Nitrite (test code = 32551-7) NEGATIVE NEGATIVE [facility] Kegygkj5407-21-84 21:08:00* Test Item Value Reference Range Interpretation Comments Urine Protein (test code = 39534-8) NEGATIVE NEGATIVE [facility] Glucose (UA)2019-01-16 21:08:00* Test Item Value Reference Range Interpretation Comments Urine Glucose (UA) (test code = 84473-5) 3+ NEGATIVE [facility] Cuvgqga4602-37-12 21:08:00* Test Item Value Reference Range Interpretation Comments Urine Ketones (test code = 26546-1) NEGATIVE NEGATIVE [facility] Hqocrvkhujya0879-24-03 21:08:00* Test Item Value Reference Range Interpretation Comments Urine Urobilinogen (test code = 80923-1) 0.2 0.2-1 [facility] Ilxzvkgdu3868-94-30 21:08:00* Test Item Value Reference Range Interpretation Comments Urine Bilirubin (test code = 1977-8) NEGATIVE NEGATIVE [facility] Dwzzm5987-64-12 21:08:00* Test Item Value Reference Range Interpretation Comments Urine Blood (test code = 58030-8) NEGATIVE NEGATIVE [facility] Zrcnd6576-60-94 21:08:00* Test Item Value Reference Range Interpretation Comments Urine Color (test code = 5778-6) YELLOW YELLOW [facility] Ftyoyuk9371-98-72 21:08:00* Test Item Value Reference Range Interpretation Comments Urine Clarity (test code = 47232-8) CLEAR CLEAR [facility] Specific Ugwmoyr8827-97-49 21:08:00 * Test Item Value Reference Range Interpretation Comments Urine Specific [place] (test code = 5811-5) <=1.005 1.010-1.02 5 [facility] tM1152-87-61 21:08:00* Test Item Value Reference Range Interpretation Comments Urine pH (test code = 97332-9) 6 5-7 [facility] Leukocyte Sntjjzri3574-65-69 21:08:00* Test Item Value Reference Range Interpretation Comments Urine Leukocyte Esterase (test code = 28990-5) NEGATIVE NEGATIV E [facility] Ikqfsyg2151-15-18 21:08:00* Test Item Value Reference Range Interpretation Comments Urine Nitrite (test code = 10325-8) NEGATIVE NEGATIVE [facility] Lvakesl4763-57-87 21:08:00* Test Item Value Reference Range Interpretation Comments Urine Protein (test code = 85055-8) NEGATIVE NEGATIVE [facility] Glucose (UA)2019-01-16 21:08:00* Test Item Value Reference Range Interpretation Comments Urine Glucose (UA) (test code = 13583-9) 3+ NEGATIVE [facility] Uudgrfa5229-42-75 21:08:00* Test Item Value Reference Range Interpretation Comments Urine Ketones (test code = 66746-7) NEGATIVE NEGATIVE [facility] Rsgobwfdutqd9717-70-93 21:08:00* Test Item Value Reference Range Interpretation Comments Urine Urobilinogen (test code = 36005-5) 0.2 0.2-1 [facility] Xuakpwphl6338-34-18 21:08:00* Test Item Value Reference Range Interpretation Comments Urine Bilirubin (test code = 1977-8) NEGATIVE NEGATIVE [facility] Decjw2544-53-85 21:08:00* Test Item Value Reference Range Interpretation Comments Urine Blood (test code = 64021-5) NEGATIVE NEGATIVE [facility] Ngwui4063-37-50 21:08:00* Test Item Value Reference Range Interpretation Comments Urine Color (test code = 5778-6) YELLOW YELLOW [facility] Xptempi3121-96-15 21:08:00* Test Item Value Reference Range Interpretation Comments Urine Clarity (test code = 60111-5) CLEAR CLEAR [facility] Specific Wprrdzp3197-80-51 21:08:00 * Test Item Value Reference Range Interpretation Comments Urine Specific [place] (test code = 5811-5) <=1.005 1.010-1.02 5 [facility] pU8036-40-74 21:08:00* Test Item Value Reference Range Interpretation Comments Urine pH (test code = 12738-6) 6 5-7 [facility] Leukocyte Hsvrqgvx8613-17-79 21:08:00* Test Item Value Reference Range Interpretation Comments Urine Leukocyte Esterase (test code = 49838-7) NEGATIVE NEGATIV E [facility] Pxdatmg9795-53-59 21:08:00* Test Item Value Reference Range Interpretation Comments Urine Nitrite (test code = 58143-9) NEGATIVE NEGATIVE [facility] Fypthao2767-55-83 21:08:00* Test Item Value Reference Range Interpretation Comments Urine Protein (test code = 78815-7) NEGATIVE NEGATIVE [facility] Glucose (UA)2019-01-16 21:08:00* Test Item Value Reference Range Interpretation Comments Urine Glucose (UA) (test code = 39303-0) 3+ NEGATIVE [facility] Nlgybwn9352-91-02 21:08:00* Test Item Value Reference Range Interpretation Comments Urine Ketones (test code = 98046-7) NEGATIVE NEGATIVE [facility] Quxvswatvlpr9832-01-90 21:08:00* Test Item Value Reference Range Interpretation Comments Urine Urobilinogen (test code = 57657-8) 0.2 0.2-1 [facility] Pxvfwatdi7772-14-27 21:08:00* Test Item Value Reference Range Interpretation Comments Urine Bilirubin (test code = 1977-8) NEGATIVE NEGATIVE [facility] Cmdxk9763-36-95 21:08:00* Test Item Value Reference Range Interpretation Comments Urine Blood (test code = 65909-1) NEGATIVE NEGATIVE [facility] Tlnot8374-40-08 21:08:00* Test Item Value Reference Range Interpretation Comments Urine Color (test code = 5778-6) YELLOW YELLOW [facility] Mjjuucw5497-58-28 21:08:00* Test Item Value Reference Range Interpretation Comments Urine Clarity (test code = 18168-9) CLEAR CLEAR [facility] Specific Eodfjny4465-13-26 21:08:00 * Test Item Value Reference Range Interpretation Comments Urine Specific [place] (test code = 5811-5) <=1.005 1.010-1.02 5 [facility] nH7776-03-81 21:08:00* Test Item Value Reference Range Interpretation Comments Urine pH (test code = 78808-9) 6 5-7 [facility] Leukocyte Imexudwj7843-01-22 21:08:00* Test Item Value Reference Range Interpretation Comments Urine Leukocyte Esterase (test code = 14830-6) NEGATIVE NEGATIV E [facility] Oxykdap4234-21-86 21:08:00* Test Item Value Reference Range Interpretation Comments Urine Nitrite (test code = 99860-2) NEGATIVE NEGATIVE [facility] Nukkzgs1272-16-72 21:08:00* Test Item Value Reference Range Interpretation Comments Urine Protein (test code = 25819-5) NEGATIVE NEGATIVE [facility] Glucose (UA)2019-01-16 21:08:00* Test Item Value Reference Range Interpretation Comments Urine Glucose (UA) (test code = 14336-5) 3+ NEGATIVE [facility] Youmruq5895-61-24 21:08:00* Test Item Value Reference Range Interpretation Comments Urine Ketones (test code = 24551-8) NEGATIVE NEGATIVE [facility] Wxndtwenukpr0279-77-22 21:08:00* Test Item Value Reference Range Interpretation Comments Urine Urobilinogen (test code = 25832-0) 0.2 0.2-1 [facility] Mxmrckcqu1450-34-47 21:08:00* Test Item Value Reference Range Interpretation Comments Urine Bilirubin (test code = 1977-8) NEGATIVE NEGATIVE [facility] Djauk0564-95-71 21:08:00* Test Item Value Reference Range Interpretation Comments Urine Blood (test code = 23987-5) NEGATIVE NEGATIVE [facility] Ftzia9389-49-06 21:08:00* Test Item Value Reference Range Interpretation Comments Urine Color (test code = 5778-6) YELLOW YELLOW [facility] Riilkjl7278-39-46 21:08:00* Test Item Value Reference Range Interpretation Comments Urine Clarity (test code = 14635-6) CLEAR CLEAR [facility] Specific Kedbclq7018-88-25 21:08:00 * Test Item Value Reference Range Interpretation Comments Urine Specific [place] (test code = 5811-5) <=1.005 1.010-1.02 5 [facility] lD7430-33-49 21:08:00* Test Item Value Reference Range Interpretation Comments Urine pH (test code = 41221-5) 6 5-7 [facility] Leukocyte Vlepvkgq7836-42-45 21:08:00* Test Item Value Reference Range Interpretation Comments Urine Leukocyte Esterase (test code = 26875-4) NEGATIVE NEGATIV E [facility] Harqkrp7904-35-15 21:08:00* Test Item Value Reference Range Interpretation Comments Urine Nitrite (test code = 40682-5) NEGATIVE NEGATIVE [facility] Soauapk8402-64-81 21:08:00* Test Item Value Reference Range Interpretation Comments Urine Protein (test code = 72119-9) NEGATIVE NEGATIVE [facility] Glucose (UA)2019-01-16 21:08:00* Test Item Value Reference Range Interpretation Comments Urine Glucose (UA) (test code = 35718-6) 3+ NEGATIVE [facility] Zvfmkxq1989-38-04 21:08:00* Test Item Value Reference Range Interpretation Comments Urine Ketones (test code = 77694-4) NEGATIVE NEGATIVE [facility] Yiexyqcfzjpt9921-98-12 21:08:00* Test Item Value Reference Range Interpretation Comments Urine Urobilinogen (test code = 65748-9) 0.2 0.2-1 [facility] Vxgjrkjvx5200-79-13 21:08:00* Test Item Value Reference Range Interpretation Comments Urine Bilirubin (test code = 1977-8) NEGATIVE NEGATIVE [facility] Upexk7271-03-77 21:08:00* Test Item Value Reference Range Interpretation Comments Urine Blood (test code = 02272-8) NEGATIVE NEGATIVE [facility] Atkyi2292-71-60 21:08:00* Test Item Value Reference Range Interpretation Comments Urine Color (test code = 5778-6) YELLOW YELLOW [facility] Dayivhw5329-02-55 21:08:00* Test Item Value Reference Range Interpretation Comments Urine Clarity (test code = 48169-3) CLEAR CLEAR [facility] Specific Vcjwzum1318-95-15 21:08:00 * Test Item Value Reference Range Interpretation Comments Urine Specific [place] (test code = 5811-5) <=1.005 1.010-1.02 5 [facility] uL1647-03-59 21:08:00* Test Item Value Reference Range Interpretation Comments Urine pH (test code = 92943-3) 6 5-7 [facility] Leukocyte Jlzcqvan7274-47-85 21:08:00* Test Item Value Reference Range Interpretation Comments Urine Leukocyte Esterase (test code = 78562-3) NEGATIVE NEGATIV E [facility] Ppeknpn6381-59-45 21:08:00* Test Item Value Reference Range Interpretation Comments Urine Nitrite (test code = 37409-3) NEGATIVE NEGATIVE [facility] Egtezss5538-70-29 21:08:00* Test Item Value Reference Range Interpretation Comments Urine Protein (test code = 38230-5) NEGATIVE NEGATIVE [facility] Glucose (UA)2019-01-16 21:08:00* Test Item Value Reference Range Interpretation Comments Urine Glucose (UA) (test code = 30932-5) 3+ NEGATIVE [facility] Olsmqgg6237-57-94 21:08:00* Test Item Value Reference Range Interpretation Comments Urine Ketones (test code = 81557-9) NEGATIVE NEGATIVE [facility] Cdbuqcyijafc0856-14-97 21:08:00* Test Item Value Reference Range Interpretation Comments Urine Urobilinogen (test code = 02723-8) 0.2 0.2-1 [facility] Xlknftnte3757-74-68 21:08:00* Test Item Value Reference Range Interpretation Comments Urine Bilirubin (test code = 1977-8) NEGATIVE NEGATIVE [facility] Eovur7589-02-11 21:08:00* Test Item Value Reference Range Interpretation Comments Urine Blood (test code = 82830-6) NEGATIVE NEGATIVE [facility]2019-01-16 20:38:00 [place] [address] Patient Name: KALYANI TALAVERA MR #: [id number] : 1955 Age/Sex: 63/F Req #: [id number] Adm Physician: Ordered by: JACQUES JANE MD Report #: [id number] Location: ER Room/Bed: Procedure: 66 DX/CHEST SINGLE [...] 01/16/192040 COPY TO: JACQUES JANE MD Bedside Xijzxim0212-80-44 11:08:00* Test Item Value Reference Range Interpretation Comments Bedside Glucose (test code = 21066-7) 289 70-120 H Meter ID: [id number] [facility] 2019-01-13 05:34:00* Test Item Value Reference Range Interpretation Comments Sodium Level (test code = 2951-2) 138 136-145 [facility] Eaehs0792-62-89 05:34:00* Test Item Value Reference Range Interpretation Comments Potassium Level (test code = 2823-3) 3.8 3.5-5.1 [facility] Tudoh9472-57-67 05:34:00* Test Item Value Reference Range Interpretation Comments Chloride Level (test code = 2075-0) 105 98-107 [facility]ide Mvukb2178-82-33 05:34:00* Test Item Value Reference Range Interpretation Comments Carbon Dioxide Level (test code = 2028-9) 25 22-29 [facility] [place] Fsb3454-00-84 05:34:00* Test Item Value Reference Range Interpretation Comments Anion Gap (test code = 53961-6) 11.8 8-16 [facility] ArlingtonBlood Urea Icymoqai2698-93-73 05:34:00* Test Item Value Reference Range Interpretation Comments Blood Urea Nitrogen (test code = 3094-0) 16 7-26 [facility] ArlingtonCreatinine2019-06-23 05:34:00* Test Item Value Reference Range Interpretation Comments Creatinine (test code = 2160-0) 0.78 0.57-1.11 [facility] ArlingtonBUN/Creatinine Bigqm9612-36-54 05:34:00* Test Item Value Reference Range Interpretation Comments BUN/Creatinine Ratio (test code = 3097-3) 21 6- [facility] ArlingtonEstimat Glomerular Filtration Rate 2019-01-13 05:34:00* Test Item Value Reference Range Interpretation Comments Estimat Glomerular Filtration Rate (test code = 328807012) > 60 >60 Ranges were taken from the National Kidney Disease Education Program and the Jenise counts [facility] literature.Reference ranges:60 or greater: Wywqrd42-43 ( for 3 consecutive months): Chronic kidney disease 15 or less: Kidney failureUSMD Hospital at ArlingtonGlucose Rxzut5700-36-15 05:34:00* Test Item Value Reference Range Interpretation Comments Glucose Level (test code = JZU9235) 151 74-118 H [facility] ArlingtonCalcium Bhxto4064-08-80 05:34:00* Test Item Value Reference Range Interpretation Comments Calcium Level (test code = 45641-6) 8.5 8.4-10.2 [facility] ArlingtonTotal Ylozcqfra6018-57-33 05:34:00* Test Item Value Reference Range Interpretation Comments Total Bilirubin (test code = 1975-2) 0.3 0.2-1.2 [facility] ArlingtonAspartate Amino Transf (AST/SGOT) 2019-01-13 05:34:00* Test Item Value Reference Range Interpretation Comments Aspartate Amino Transf (AST/SGOT) (test code = Aspartate Amino Transf (AST/SGOT)) 12 5-34 [facility] ArlingtonAlanine Aminotransferase (ALT/SGPT) 2019-01-13 05:34:00* Test Item Value Reference Range Interpretation Comments Alanine Aminotransferase (ALT/SGPT) (test code = 1742-6) 16 0-55 [facility] ArlingtonTotal Rrbktiw6562-48-89 05:34:00* Test Item Value Reference Range Interpretation Comments Total Protein (test code = 2885-2) 5.5 6.5-8.1 L [facility] ArlingtonAlbumin2019-06-23 05:34:00* Test Item Value Reference Range Interpretation Comments Albumin (test code = 1751-7) 3.0 3.5-5.0 L [facility] ArlingtonGlobulin2019-06-23 05:34:00* Test Item Value Reference Range Interpretation Comments Globulin (test code = 40843-4) 2.5 2.3-3.5 [facility] ArlingtonAlbumin/Globulin Esgeo3867-28-31 05:34:00 * Test Item Value Reference Range Interpretation Comments Albumin/Globulin Ratio (test code = 1759-0) 1.2 0.8-2.0 [facility] ArlingtonAlkaline Pbqwhlanbwr7085-89-56 05:34:00* Test Item Value Reference Range Interpretation Comments Alkaline Phosphatase (test code = 6768-6) 69 40-150 [facility] ArlingtonWhite Blood Pxeyu9002-66-99 05:17:00* Test Item Value Reference Range Interpretation Comments White Blood Count (test code = 6690-2) 5.11 4.8-10.8 [facility] ArlingtonRed Blood Hrrwp0543-15-26 05:17:00* Test Item Value Reference Range Interpretation Comments Red Blood Count (test code = 789-8) 4.52 3.6-5.1 [facility] ArlingtonHemoglobin2019-06-23 05:17:00* Test Item Value Reference Range Interpretation Comments Hemoglobin (test code = 28576-9) 11.2 12.0-16.0 L [facility] ArlingtonHematocrit2019-06-23 05:17:00* Test Item Value Reference Range Interpretation Comments Hematocrit (test code = 4544-3) 36.5 34.2-44.1 [facility] ArlingtonMean Corpuscular Aubjfw9031-34-94 05:17:00* Test Item Value Reference Range Interpretation Comments Mean Corpuscular Volume (test code = 787-2) 80.8 81-99 L [facility] ArlingtonMean Corpuscular Unqeuognii1743-97-55 05:17:00* Test Item Value Reference Range Interpretation Comments Mean Corpuscular Hemoglobin (test code = 785-6) 24.8 28-32 L [facility] ArlingtonMean Corpuscular Hemoglobin Concent 2019-01-13 05:17:00* Test Item Value Reference Range Interpretation Comments Mean Corpuscular Hemoglobin Concent (test code = 786-4) 30.7 31-35 L [facility] ArlingtonRed Cell Distribution Jsekc1072-88-01 05:17:00* Test Item Value Reference Range Interpretation Comments Red Cell Distribution Width (test code = 45719-8) 14.9 11.7 -14.4 H [facility] ArlingtonPlatelet Yoivz2544-22-41 05:17:00* Test Item Value Reference Range Interpretation Comments Platelet Count (test code = 777-3) 149 140-360 [facility] ArlingtonNeutrophils (%) (Auto)2019-01-13 05:17:00 * Test Item Value Reference Range Interpretation Comments Neutrophils (%) (Auto) (test code = 50782-3) 67.6 38.7-80.0 [facility] ArlingtonLymphocytes (%) (Auto)2019-01-13 05:17:00 * Test Item Value Reference Range Interpretation Comments Lymphocytes (%) (Auto) (test code = 736-9) 20.4 18.0-39.1 [facility] ArlingtonMonocytes (%) (Auto)2019-01-13 05:17:00* Test Item Value Reference Range Interpretation Comments Monocytes (%) (Auto) (test code = 5905-5) 5.9 4.4-11.3 [facility] ArlingtonEosinophils (%) (Auto)2019-01-13 05:17:00 * Test Item Value Reference Range Interpretation Comments Eosinophils (%) (Auto) (test code = 713-8) 4.1 0.0-6.0 [facility] ArlingtonBasophils (%) (Auto)2019-01-13 05:17:00* Test Item Value Reference Range Interpretation Comments Basophils (%) (Auto) (test code = 706-2) 1.2 0.0-1.0 H [facility] ArlingtonIM GRANULOCYTES %2019-01-13 05:17:00* Test Item Value Reference Range Interpretation Comments IM GRANULOCYTES % (test code = IM GRANULOCYTES %) 0.8 0.0- 1.0 [facility] ArlingtonNeutrophils # (Auto)2019-01-13 05:17:00* Test Item Value Reference Range Interpretation Comments Neutrophils # (Auto) (test code = 751-8) 3.5 2.1-6.9 [facility] ArlingtonLymphocytes # (Auto)2019-01-13 05:17:00* Test Item Value Reference Range Interpretation Comments Lymphocytes # (Auto) (test code = 76821-4) 1.0 1.0-3.2 [facility] ArlingtonMonocytes # (Auto)2019-01-13 05:17:00* Test Item Value Reference Range Interpretation Comments Monocytes # (Auto) (test code = 742-7) 0.3 0.2-0.8 [facility] ArlingtonEosinophils # (Auto)2019-01-13 05:17:00* Test Item Value Reference Range Interpretation Comments Eosinophils # (Auto) (test code = 711-2) 0.2 0.0-0.4 [facility] ArlingtonBasophils # (Auto)2019-01-13 05:17:00* Test Item Value Reference Range Interpretation Comments Basophils # (Auto) (test code = 704-7) 0.1 0.0-0.1 [facility] ArlingtonAbsolute Immature Granulocyte (auto 2019-01-13 05:17:00* Test Item Value Reference Range Interpretation Comments Absolute Immature Granulocyte (auto (joseph t code = Absolute Immature Granulocyte (auto) 0.04 0-0.1 [facility] ArlingtonHemoglobin A1c Ozxtmad0777-86-90 13:04:00 * Test Item Value Reference Range Interpretation Comments Hemoglobin A1c Percent (test code = Hemoglobin A1c Percent) 11.6 4.0-7.0 H [facility] ArlingtonUrine AGR5685-30-53 18:54:00* Test Item Value Reference Range Interpretation Comments Urine WBC (test code = 5821-4) NONE 0-5 [facility] ArlingtonUrine BJO9495-46-26 18:54:00* Test Item Value Reference Range Interpretation Comments Urine RBC (test code = 83670-5) NONE 0-5 [facility] ArlingtonUrine Ibnjewbm9449-26-57 18:54:00* Test Item Value Reference Range Interpretation Comments Urine Bacteria (test code = 80651-6) FEW NONE [facility] ArlingtonUrine Epithelial Gdfhp6979-02-72 18:54:00 * Test Item Value Reference Range Interpretation Comments Urine Epithelial Cells (test code = 21396-6) FEW NONE [facility] ArlingtonCreatine Kinase ZY3367-09-13 18:44:00* Test Item Value Reference Range Interpretation Comments Creatine Kinase MB (test code = 44386-9) 1.00 0-5.0 [facility] ArlingtonTroponin Y4504-57-77 18:44:00* Test Item Value Reference Range Interpretation Comments Troponin I (test code = KKR5255) 0.002 0-0.300 [facility] ArlingtonCHEST SINGLE (PORTABLE)2019-01-11 18:42:00 [place] [address] Patient Name: KALYANI TALAVERA MR #: [id number] : 1955 Age/Sex: 63/F Req #: [id number] Adm Physician: Ordered by: FLO TOLBERT MD Report #: [id number] Location: ER Room/Bed: Procedure: [id number] DX/C HEST SINGLE (PORTABLE) Exam Date: Exam [...] 01/11/191842 COPY TO: FLO TOLBERT MD Creatine Fdlfcu6158-93-88 18:39:00* Test Item Value Reference Range Interpretation Comments Creatine Kinase (test code = 2157-6) 29 29-168 [facility] ArlingtonUrine Zbrbc6651-27-02 18:38:00* Test Item Value Reference Range Interpretation Comments Urine Color (test code = 5778-6) YELLOW YELLOW [facility] ArlingtonUrine Zowfjze6427-46-73 18:38:00* Test Item Value Reference Range Interpretation Comments Urine Clarity (test code = 96676-2) CLEAR CLEAR [facility] ArlingtonUrine Specific Iinjfht7088-48-85 18:38:00 * Test Item Value Reference Range Interpretation Comments Urine Specific [place] (test code = 5811-5) 1.010 1.010-1.02 5 [facility] ArlingtonUrine mJ0560-60-27 18:38:00* Test Item Value Reference Range Interpretation Comments Urine pH (test code = 19136-2) 6 5-7 [facility] ArlingtonU[facility] Leukocyte Ximhyluj6333-29-80 18:38:00* Test Item Value Reference Range Interpretation Comments Urine Leukocyte Esterase (test code = 30492-5) NEGATIVE NEGATIV E [facility] ArlingtonUrine Rhxqatr8075-83-58 18:38:00* Test Item Value Reference Range Interpretation Comments Urine Nitrite (test code = 78772-3) NEGATIVE NEGATIVE [facility] ArlingtonUrine Nwkfqgn7936-28-85 18:38:00* Test Item Value Reference Range Interpretation Comments Urine Protein (test code = 01702-4) NEGATIVE NEGATIVE [facility] ArlingtonUrine Glucose (UA)2019-01-11 18:38:00* Test Item Value Reference Range Interpretation Comments Urine Glucose (UA) (test code = 35119-2) 3+ NEGATIVE [facility] ArlingtonUrine Wdysvof4132-52-72 18:38:00* Test Item Value Reference Range Interpretation Comments Urine Ketones (test code = 46038-5) NEGATIVE NEGATIVE [facility] Toeslsptiepf6603-46-38 18:38:00* Test Item Value Reference Range Interpretation Comments Urine Urobilinogen (test code = 51439-6) 0.2 0.2-1 [facility] ArlingtonUrine Wtasqrnbi0372-97-25 18:38:00* Test Item Value Reference Range Interpretation Comments Urine Bilirubin (test code = 1977-8) NEGATIVE NEGATIVE [facility] ArlingtonUrine Woeaj3727-14-72 18:38:00* Test Item Value Reference Range Interpretation Comments Urine Blood (test code = 07387-9) NEGATIVE NEGATIVE [facility] ArlingtonProthrombin Nsue9369-07-38 18:32:00* Test Item Value Reference Range Interpretation Comments Prothrombin Time (test code = 5902-2) 12.7 11.9-14.5 [facility] ArlingtonProthromb Time International Ratio 2019-01-11 18:32:00* Test Item Value Reference Range Interpretation Comments Prothromb Time International Ratio (test code = 6301-6) 0.91 Oral Anticoagulant Therapy INR Values:1. Low Intensity Therapy 1.5 - 2.02 . Moderate Intensity Therapy 2.0 - 3.03. High Intensity Therapy(1) 2.5 - 3. 54. High Intensity Therapy(2) 3.0 - 4.05. Panic Value INR > 5.0 [facility] ArlingtonActivated Partial Thromboplast Time 2019-01-11 18:32:00* Test Item Value Reference Range Interpretation Comments Activated Partial Thromboplast Time (test code = 12054-9) 24.1 23.8-35.5 [facility] ArlingtonProthrombin Ajga3948-47-91 18:32:00* Test Item Value Reference Range Interpretation Comments Prothrombin Time (test code = 5902-2) 12.7 11.9-14.5 [facility] ArlingtonProthromb Time International Ratio 2019-01-11 18:32:00* Test Item Value Reference Range Interpretation Comments Prothromb Time International Ratio (test code = 6301-6) 0.91 Oral Anticoagulant Therapy INR Values:1. Low Intensity Therapy 1.5 - 2.02 . Moderate Intensity Therapy 2.0 - 3.03. High Intensity Therapy(1) 2.5 - 3. 54. High Intensity Therapy(2) 3.0 - 4.05. Panic Value INR > 5.0 [facility] ArlingtonActivated Partial Thromboplast Time 2019-01-11 18:32:00* Test Item Value Reference Range Interpretation Comments Activated Partial Thromboplast Time (test code = 17106-6) 24.1 23.8-35.5 [facility] ArlingtonProthrombin Vfnw2693-04-75 18:32:00* Test Item Value Reference Range Interpretation Comments Prothrombin Time (test code = 5902-2) 12.7 11.9-14.5 [facility] ArlingtonProthromb Time International Ratio 2019-01-11 18:32:00* Test Item Value Reference Range Interpretation Comments Prothromb Time International Ratio (test code = 6301-6) 0.91 Oral Anticoagulant Therapy INR Values:1. Low Intensity Therapy 1.5 - 2.02 . Moderate Intensity Therapy 2.0 - 3.03. High Intensity Therapy(1) 2.5 - 3. 54. High Intensity Therapy(2) 3.0 - 4.05. Panic Value INR > 5.0 [facility] ArlingtonActivated Partial Thromboplast Time 2019-01-11 18:32:00* Test Item Value Reference Range Interpretation Comments Activated Partial Thromboplast Time (test code = 25147-7) 24.1 23.8-35.5 [facility] ArlingtonProthrombin Kfma9564-54-18 18:32:00* Test Item Value Reference Range Interpretation Comments Prothrombin Time (test code = 5902-2) 12.7 11.9-14.5 [facility] ArlingtonProthromb Time International Ratio 2019-01-11 18:32:00* Test Item Value Reference Range Interpretation Comments Prothromb Time International Ratio (test code = 6301-6) 0.91 Oral Anticoagulant Therapy INR Values:1. Low Intensity Therapy 1.5 - 2.02 . Moderate Intensity Therapy 2.0 - 3.03. High Intensity Therapy(1) 2.5 - 3. 54. High Intensity Therapy(2) 3.0 - 4.05. Panic Value INR > 5.0 [facility] ArlingtonAct[facility] Partial Thromboplast Time 2019-01-11 18:32:00* Test Item Value Reference Range Interpretation Comments Activated Partial Thromboplast Time (test code = 87018-1) 24.1 23.8-35.5 [facility] ArlingtonProthrombin Jiue9424-08-18 18:32:00* Test Item Value Reference Range Interpretation Comments Prothrombin Time (test code = 5902-2) 12.7 11.9-14.5 [facility] ArlingtonProthromb Time International Ratio 2019-01-11 18:32:00* Test Item Value Reference Range Interpretation Comments Prothromb Time International Ratio (test code = 6301-6) 0.91 Oral Anticoagulant Therapy INR Values:1. Low Intensity Therapy 1.5 - 2.02 . Moderate Intensity Therapy 2.0 - 3.03. High Intensity Therapy(1) 2.5 - 3. 54. High Intensity Therapy(2) 3.0 - 4.05. Panic Value INR > 5.0 [facility] ArlingtonAct[facility] Partial Thromboplast Time 2019-01-11 18:32:00* Test Item Value Reference Range Interpretation Comments Activated Partial Thromboplast Time (test code = 60802-9) 24.1 23.8-35.5 [facility] ArlingtonProthrombin Ehhf9109-71-02 18:32:00* Test Item Value Reference Range Interpretation Comments Prothrombin Time (test code = 5902-2) 12.7 11.9-14.5 [facility] ArlingtonProthromb Time International Ratio 2019-01-11 18:32:00* Test Item Value Reference Range Interpretation Comments Prothromb Time International Ratio (test code = 6301-6) 0.91 Oral Anticoagulant Therapy INR Values:1. Low Intensity Therapy 1.5 - 2.02 . Moderate Intensity Therapy 2.0 - 3.03. High Intensity Therapy(1) 2.5 - 3. 54. High Intensity Therapy(2) 3.0 - 4.05. Panic Value INR > 5.0 [facility] ArlingtonAct[facility] Partial Thromboplast Time 2019-01-11 18:32:00* Test Item Value Reference Range Interpretation Comments Activated Partial Thromboplast Time (test code = 18758-9) 24.1 23.8-35.5 [facility] ArlingtonProthrombin Xmlp9012-17-04 18:32:00* Test Item Value Reference Range Interpretation Comments Prothrombin Time (test code = 5902-2) 12.7 11.9-14.5 [facility] ArlingtonProthromb Time International Ratio 2019-01-11 18:32:00* Test Item Value Reference Range Interpretation Comments Prothromb Time International Ratio (test code = 6301-6) 0.91 Oral Anticoagulant Therapy INR Values:1. Low Intensity Therapy 1.5 - 2.02 . Moderate Intensity Therapy 2.0 - 3.03. High Intensity Therapy(1) 2.5 - 3. 54. High Intensity Therapy(2) 3.0 - 4.05. Panic Value INR > 5.0 [facility] ArlingtonAct[facility] Partial Thromboplast Time 2019-01-11 18:32:00* Test Item Value Reference Range Interpretation Comments Activated Partial Thromboplast Time (test code = 65614-5) 24.1 23.8-35.5 [facility] OLFTW8671-61-45 17:48:00 [facility] [address] [place] [address] Patient Name: KALYANI TALAVERA MR #: [id number] : 1955 Age/Sex: 63/F Req #: [id number] Adm Physician: Ordered by: BOYD NICHOLS DISPLAY CARVER Report #: [id number] Location: ER Room/Bed: Procedure: [id number] D X/CHEST 2 VIEWS Exam Date: 01/10/19 Exam Time: 1724 REPORT STATUS: Signed EXAMINATIO N: CHEST 2 VIEWS INDICATION: Hyperglycemia crackles bases 64870 620 1724 COMPARISON: Chest x-ray 07/01/2018 FINDINGS: [...] on 01/10/191749 COPY T O: BOYD NICHOLS DISPLAY CARVER B-Type Natriuretic Rstyaoa6282-12-10 17:30:00* Test Item Value Reference Range Interpretation Comments B-Type Natriuretic Peptide (test code = 25372-9) 24.4 0-100 [facility] ArlingtonB-Type Natriuretic Rtkbrrj9520-98-28 17:30:00* Test Item Value Reference Range Interpretation Comments B-Type Natriuretic Peptide (test code = 43047-5) 24.4 0-100 [facility] ArlingtonUrine LZT6087-36-58 17:03:00* Test Item Value Reference Range Interpretation Comments Urine WBC (test code = 5821-4) 0-5 0-5 [facility] ArlingtonU[facility] BLT8158-73-22 17:03:00* Test Item Value Reference Range Interpretation Comments Urine RBC (test code = 19445-6) NONE 0-5 [facility] ArlingtonUrine Tmdsioev8204-00-89 17:03:00* Test Item Value Reference Range Interpretation Comments Urine Bacteria (test code = 85832-2) MODERATE NONE H [facility] ArlingtonUrine Epithelial Mpnrg0440-71-89 17:03:00 * Test Item Value Reference Range Interpretation Comments Urine Epithelial Cells (test code = 33647-1) MANY NONE [facility] ArlingtonUrine Zvtuf3712-89-95 17:00:00* Test Item Value Reference Range Interpretation Comments Urine Color (test code = 5778-6) YELLOW YELLOW [facility] ArlingtonUrine Uwshdcs6774-61-02 17:00:00* Test Item Value Reference Range Interpretation Comments Urine Clarity (test code = 03365-8) CLEAR CLEAR [facility] ArlingtonUrine Specific Gdavoxf9672-80-44 17:00:00 * Test Item Value Reference Range Interpretation Comments Urine Specific [place] (test code = 5811-5) 1.020 1.010-1.02 5 [facility] ArlingtonUrine cD5795-01-39 17:00:00* Test Item Value Reference Range Interpretation Comments Urine pH (test code = 52229-1) 6 5-7 [facility] ArlingtonU[facility] Leukocyte Paguntxp8095-86-79 17:00:00* Test Item Value Reference Range Interpretation Comments Urine Leukocyte Esterase (test code = 91507-9) NEGATIVE NEGATIV E [facility] ArlingtonUrine Oiwddbf3688-24-58 17:00:00* Test Item Value Reference Range Interpretation Comments Urine Nitrite (test code = 96084-3) NEGATIVE NEGATIVE [facility] ArlingtonUrine Iyyhsjb5799-91-77 17:00:00* Test Item Value Reference Range Interpretation Comments Urine Protein (test code = 16417-9) NEGATIVE NEGATIVE [facility] ArlingtonUrine Glucose (UA)2019-01-10 17:00:00* Test Item Value Reference Range Interpretation Comments Urine Glucose (UA) (test code = 98676-8) 3+ NEGATIVE [facility] ArlingtonUrine Rxrwkxv8138-64-08 17:00:00* Test Item Value Reference Range Interpretation Comments Urine Ketones (test code = 41214-6) NEGATIVE NEGATIVE [facility] Ccgwkittqfuo0968-20-09 17:00:00* Test Item Value Reference Range Interpretation Comments Urine Urobilinogen (test code = 26622-9) 0.2 0.2-1 [facility] ArlingtonU[facility] Kfxryskhx2323-18-17 17:00:00* Test Item Value Reference Range Interpretation Comments Urine Bilirubin (test code = 1977-8) NEGATIVE NEGATIVE [facility] ArlingtonUrine Bhrzg6880-57-84 17:00:00* Test Item Value Reference Range Interpretation Comments Urine Blood (test code = 39463-3) NEGATIVE NEGATIVE [facility] ArlingtonCreatine Kinase QZ2840-72-24 16:38:00* Test Item Value Reference Range Interpretation Comments Creatine Kinase MB (test code = 88750-4) 1.60 0-5.0 [facility] ArlingtonTroponin W8629-37-63 16:38:00* Test Item Value Reference Range Interpretation Comments Troponin I (test code = FJW7575) 0.007 0-0.[address] [facility] Vchyw6160-[facility]-91 16:33:00* Test Item Value Reference Range Interpretation Comments Sodium Level (test code = 2951-2) 135 136-145 L [facility] ArlingtonPotassium Wlutj4424-26-16 16:33:00* Test Item Value Reference Range Interpretation Comments Potassium Level (test code = 2823-3) 4.9 3.5-5.1 [facility] ArlingtonChloride Mdkti1117-40-28 16:33:00* Test Item Value Reference Range Interpretation Comments Chloride Level (test code = 2075-0) 102 98-107 [facility] ArlingtonCarbon Dioxide Gsivs7812-79-48 16:33:00* Test Item Value Reference Range Interpretation Comments Carbon Dioxide Level (test code = 2028-9) 21 22-29 L [facility] ArlingtonAnion Jkx9221-45-58 16:33:00* Test Item Value Reference Range Interpretation Comments Anion Gap (test code = 24470-3) 16.9 8-16 H [facility] ArlingtonBlood Urea Ckbmqbkf4669-83-00 16:33:00* Test Item Value Reference Range Interpretation Comments Blood Urea Nitrogen (test code = 3094-0) 31 7-26 H [facility] ArlingtonCreatinine2019-06-20 16:33:00* Test Item Value Reference Range Interpretation Comments Creatinine (test code = 2160-0) 1.16 0.57-1.11 H [facility] ArlingtonBUN/Creatinine Sgxvt7384-74-21 16:33:00* Test Item Value Reference Range Interpretation Comments BUN/Creatinine Ratio (test code = 3097-3) 27 6-25 H [facility] ArlingtonEstimat Glomerular Filtration Rate 2019-01-10 16:33:00* Test Item Value Reference Range Interpretation Comments Estimat Glomerular Filtration Rate (test code = 374513172) 47 >60 L Ranges were taken from the National Kidney Disease Education Program and the Jenise counts include [facility] literature.Reference ranges:60 or greater: Mvxgdl31-49 ( for 3 consecutive months): Chronic kidney disease 15 or less: Kidney failureUSMD Hospital at ArlingtonGlucose Akgpz6555-51-41 16:33:00* Test Item Value Reference Range Interpretation Comments Glucose Level (test code = YKW6404) 326 74-118 H [facility] ArlingtonCalcium Dhddo9874-81-74 16:33:00* Test Item Value Reference Range Interpretation Comments Calcium Level (test code = 92198-0) 9.7 8.4-10.2 [facility] ArlingtonTotal Jnfxebaye7828-00-40 16:33:00* Test Item Value Reference Range Interpretation Comments Total Bilirubin (test code = 1975-2) 0.3 0.2-1.2 [facility] ArlingtonAspartate Amino Transf (AST/SGOT) 2019-01-10 16:33:00* Test Item Value Reference Range Interpretation Comments Aspartate Amino Transf (AST/SGOT) (test code = Aspartate Amino Transf (AST/SGOT)) 19 5-34 [facility] ArlingtonAlanine Aminotransferase (ALT/SGPT) 2019-01-10 16:33:00* Test Item Value Reference Range Interpretation Comments Alanine Aminotransferase (ALT/SGPT) (test code = 1742-6) 22 0-55 [facility] ArlingtonTotal Imckgbm9928-05-79 16:33:00* Test Item Value Reference Range Interpretation Comments Total Protein (test code = 2885-2) 7.1 6.5-8.1 [facility] ArlingtonAlbumin2019-06-20 16:33:00* Test Item Value Reference Range Interpretation Comments Albumin (test code = 1751-7) 3.5 3.5-5.0 [facility] ArlingtonGlobulin2019-06-20 16:33:00* Test Item Value Reference Range Interpretation Comments Globulin (test code = 37063-0) 3.6 2.3-3.5 H [facility] ArlingtonAlbumin/Globulin Sjmcv5415-93-81 16:33:00 * Test Item Value Reference Range Interpretation Comments Albumin/Globulin Ratio (test code = 1759-0) 1.0 0.8-2.0 [facility] ArlingtonAlkaline Wnwxpsxbnmd7403-21-64 16:33:00* Test Item Value Reference Range Interpretation Comments Alkaline Phosphatase (test code = 6768-6) 81 40-150 [facility] ArlingtonCreatine Vlfcla0002-02-67 16:33:00* Test Item Value Reference Range Interpretation Comments Creatine Kinase (test code = 2157-6) 35 29-168 [facility] ArlingtonWhite Blood Pvgpy1497-33-90 16:22:00* Test Item Value Reference Range Interpretation Comments White Blood Count (test code = 6690-2) 5.88 4.8-10.8 [facility] [place] Blood [id number] 16:22:00* Test Item Value Reference Range Interpretation Comments Red Blood Count (test code = 789-8) 5.19 3.6-5.1 [facility] 16:22:00* Test Item Value Reference Range Interpretation Comments Hemoglobin (test code = 52913-0) 13.0 12.0-16.0 [facility]ematocrit2019-06-20 16:22:00* Test Item Value Reference Range Interpretation Comments Hematocrit (test code = 4544-3) 42.1 34.2-44.1 [facility] Corpuscular [id number] 16:22:00* Test Item Value Reference Range Interpretation Comments Mean Corpuscular Volume (test code = 787-2) 81.1 81-99 [facility] Corpuscular Unbzqmdoor4241-94-68 16:22:00* Test Item Value Reference Range Interpretation Comments Mean Corpuscular Hemoglobin (test code = 785-6) 25.0 28-32 L [facility] Corpuscular Hemoglobin Concent 2019-01-10 16:22:00* Test Item Value Reference Range Interpretation Comments Mean Corpuscular Hemoglobin Concent (test code = 786-4) 30.9 31-35 L [facility] Cell Distribution [id number] 16:22:00* Test Item Value Reference Range Interpretation Comments Red Cell Distribution Width (test code = 83298-7) 15.0 11.7 -14.4 H [facility] Arlington[facility]atelet [id number] 16:22:00* Test Item Value Reference Range Interpretation Comments Platelet Count (test code = 777-3) 151 140-360 [facility] ArlingtonNeutrophils (%) (Auto)2019-01-10 16:22:00 * Test Item Value Reference Range Interpretation Comments Neutrophils (%) (Auto) (test code = 02097-5) 66.5 38.7-80.0 [facility] Arlington[facility]ymphocytes (%) (Auto)2019-01-10 16:22:00 * Test Item Value Reference Range Interpretation Comments Lymphocytes (%) (Auto) (test code = 736-9) 24.0 18.0-39.1 [facility] (%) (Auto)2019-01-10 16:22:00* Test Item Value Reference Range Interpretation Comments Monocytes (%) (Auto) (test code = 5905-5) 5.1 4.4-11.3 [facility] (%) (Auto)2019-01-10 16:22:00 * Test Item Value Reference Range Interpretation Comments Eosinophils (%) (Auto) (test code = 713-8) 2.7 0.0-6.0 [facility] (%) (Auto)2019-01-10 16:22:00* Test Item Value Reference Range Interpretation Comments Basophils (%) (Auto) (test code = 706-2) 1.0 0.0-1.0 [facility]ULOC[facility]TES %2019-01-10 16:22:00* Test Item Value Reference Range Interpretation Comments IM GRANULOCYTES % (test code = IM GRANULOCYTES %) 0.7 0.0- 1.0 [facility] Arlington[facility]utrophils # (Auto)2019-01-10 16:22:00* Test Item Value Reference Range Interpretation Comments Neutrophils # (Auto) (test code = 751-8) 3.9 2.1-6.9 [facility] ArlingtonLymphocytes # (Auto)2019-01-10 16:22:00* Test Item Value Reference Range Interpretation Comments Lymphocytes # (Auto) (test code = 36046-6) 1.4 1.0-3.2 [facility] # (Auto)2019-01-10 16:22:00* Test Item Value Reference Range Interpretation Comments Monocytes # (Auto) (test code = 742-7) 0.3 0.2-0.8 [facility] # (Auto)2019-01-10 16:22:00* Test Item Value Reference Range Interpretation Comments Eosinophils # (Auto) (test code = 711-2) 0.2 0.0-0.4 [facility] # (Auto)2019-01-10 16:22:00* Test Item Value Reference Range Interpretation Comments Basophils # (Auto) (test code = 704-7) 0.1 0.0-0.1 [facility] ArlingtonAbsolute Immature Granulocyte (auto 2019-01-10 16:22:00* Test Item Value Reference Range Interpretation Comments Absolute Immature Granulocyte (auto (joseph t code = Absolute Immature Granulocyte (auto) 0.04 0-0.1 [facility] ArlingtonGLUBED2019-06-15 03:55:00* Test Item Value Reference Range Interpretation Comments GLUBED (test code = GLUBED) 370 mg/dL 74-106 H Performed by certified thread milling machine set up operator at [facility] [id number] 03:55:00* Test Item Value Reference Range Interpretation Comments GLUBED (test code = GLUBED) 358 mg/dL 74-106 H Performed by certified thread milling machine set up operator at [facility] BASIC METABOLIC [id number] 03:09:00* Test Item Value Reference Range Interpretation [...] CA) 8.1 mg/dL 8.5-10.1 L HEPATIC FUNCTION [id number] 03:09:00* Test Item Value Reference Range Interpretation [...] reference range due to change in reagent. [id number] 03:09:00* Test Item Value Reference Range Interpretation Comments TROPONIN-I (test code = TROPI) <0.015 ng/mL 0-0.045 N BASIC METABOLIC [id number] 03:01:00* Test Item Value Reference Range Interpretation [...] code = CA) mg/dL 8.5-10.1 HEPATIC FUNCTION [id number] 03:01:00* Test Item Value Reference Range Interpretation [...] TOTAL (test code = ALKP) IUnit/L 45-117 [id number]-[id number] 03:01:00* Test Item Value Reference Range Interpretation Comments TROPONIN-I (test code = TROPI) ng/mL 0-0.045 CBC W/AUTO [id number] 02:56:00* Test Item Value Reference Range Interpretation [...] (test code = MDIFF) NO CBC W/AUTO [id number] 02:51:00* Test Item Value Reference Range Interpretation [...] (test code = BA#) K/mm3 0.0-0.2 URINALYSIS [id number] 01:33:00* Test Item Value Reference Range Interpretation [...] Urine Source? Clean Catch- XR CHEST 1 [id number] 01:00:00 FAX: Amish BoldenBonnie,Chris [phone] [place]: St: REG FAX: Vince Jones DO Name: KALYANI TALAVERA [facility] : 1955 Age/S: 63/F [address] [facility] Unit #: [id number] Loc: [place] [address] Phys: Vince Jones DO Acct: [id number] Dis Date: Status: REG ER PHONE #: [phone] Exam Date: 01/05/2019 0045 FAX #: [phone] Reason: Altered Mental Status EXAMS: CPT CODE: [id number] XR CHEST 1 V 52853 LOCATION: Q15 HISTORY: 63-year-old female who presents with alteration of awareness. COMMENT: A frontal chest radiograph was obtained at 12:44 a.m., and compared to study of [facility] 2018. Central vascular congestion pattern with surrounding [...] D/T: S: 12/22 (0109) PAGE 1 Signed Repor t - XR CHEST 1 [id number] 01:00:00 FAX: Amish Nur, [place]: St: [facility] FAX: Vince Jones DO Name: KALYANI TALAVERA [facility] : 1955 Age/S: 63/F [address] [facility] Unit #: [id number] Loc: [place] [address] Phys: Vince Jones DO Acct: [id number] Dis Date: Status: [facility] ER PHONE #: [phone] Exam Date: 01/05/2019 0045 FAX #: [phone] Reason: Altered Mental Status EXAMS: CPT CODE: [id number] XR CHEST 1 V 44847 LOCATION: Q15 HISTORY: 63-year-old female who presents with alteration of awareness. COMMENT: A frontal chest radiograph was obtained at 12:44 a.m., and compared to study of [facility] 2018. Central vascular congestion pattern with surrounding [...] Signed Repor t - XR CHEST 1 [id number] 01:00:00 FAX: Amish Nur, [place]: St: [facility] FAX: Vince Jones DO Name: KALYANI TALAVERA [facility] : 1955 Age/S: 63/F [address] [facility] Unit #: [id number] Loc: [place] [address] Phys: Vince Jones DO Acct: [id number] Dis Date: Status: [facility] ER PHONE #: [phone] Exam Date: 01/05/201944 FAX #: [phone] Reason: Altered Mental Status EXAMS: CPT CODE: [id number] XR CHEST 1 V 49743 LOCATION: Q15 HISTORY: 63-year-old female who presents with alteration of awareness. COMMENT: A frontal chest radiograph was obtained at 12:44 a.m., and compared to study of [facility] 2018. Central vascular congestion pattern with surrounding [...] D/T: S: 12/22 (0108) PAGE 1 Signed Repor t - CT HEAD/BRAIN W/O [id number] 00:55:00 Name: KALYANI TALAVERA [facility] : 1955 Age/S: 63 / F [address] [facility] Unit #: [id number] Loc: [place] [address] Phys: Vince Jones DO Acct: [id number] Dis Date: Status: REG ER PHONE #: Exam Date: 01/05/201949 FAX #: Reason: Altered Mental Status EXAMS: CPT CODE: [id number] CT HEAD/BRAIN W/O CONT 20558 EXAM: - CT HEAD/BRAIN W/O CONT Location [...] 1 Signed Report (CONTINUED) Name: [facility] 1955 Age/S: 63 / F [address] Unit #: [id number] Loc: [place] [address] Phys: Vince Jones DO Acct: [id number] Dis Date: Status: REG ER PHONE #: [phone] Exam Date: 01/05/201949 FAX #: [phone] Reason: Altered Mental Status EXAMS: CPT CODE: [id number] CT HEAD/BRAIN W/O CONT 09961 <Continued> CC: Lucille Nur MD; Vince Jones DO Technologist:Faizan Adame, RT(R)(CT) CTDI: DLP: Trnscb Date/Time: 01/05/2019 (54) [email or web address] Orig Print D/T: S: 01/05/2019 (005) PAGE 2 Signed Report - CT HEAD/BRAIN W/O [id number] 00:55:00 Name: KALYANI TALAVERA [facility] : 1955 Age/S: 63 / F [address] Unit #: [id number] Loc: [place] [address] Phys: Vince Jones DO Acct: [id number] Dis Date: Status: DEP ER PHONE #: [phone] Exam Date: 01/05/201949 FAX #: [phone] Reason: Altered Mental Status EXAMS: CPT CODE: [id number] CT HEAD/BRAIN W/O CONT 29968 EXAM: - CT HEAD/BRAIN W/O CONT Location [...] 1 Signed Report (CONTINUED) Name: KALYANI TALAVERA [facility] : 1955 Age/S: 63 / F [address] Unit #: [id number] Loc: [place] [address] Phys: Vince Jones DO Acct: [id number] Dis Date: Status: DEP ER PHONE #: [phone] Exam Date: 01/05/201949 FAX #: [phone] Reason: Altered Mental Status EXAMS: CPT CODE: [id number] CT HEAD/BRAIN W/O CONT 87698 <Continued> CC: Lucille Nur MD; Vince Jones DO Technologist:Faizan Adame RT(R)(CT) CTDI: DLP: Trnscb Date/Time: 01/05/2019 (54) [email or web address] Orig Print D/T: S: 01/05/2019 (57) PAGE 2 Signed Report - CT HEAD/BRAIN W/O [id number] 00:55:00 Name: KALYANI TALAVERA [facility] : 1955 Age/S: 63 / F [address] Unit #: [id number] Loc: [place] [address] Phys: Vince Jones DO Acct: [id number] Dis Date: Status: DEP ER PHONE #: [phone] Exam Date: 01/05/2019 0050 FAX #: [phone] Reason: Altered Mental Status EXAMS: CPT CODE: [id number] CT HEAD/BRAIN W/O CONT 21855 EXAM: - CT HEAD/BRAIN W/O CONT Location [...] 1 Signed Report (CONTINUED) Name: KALYANI TALAVERA [facility] : 1955 Age/S: 63 / F [address] Unit #: [id number] Loc: [place] [address] Phys: Vince Jones DO Acct: [id number] Dis Date: Status: DEP ER PHONE #: [phone] Exam Date: 01/05/2019 0050 FAX #: [phone] Reason: Altered Mental Status EXAMS: CPT CODE: [id number] CT HEAD/BRAIN W/O CONT 07885 <Continued> CC: Lucille Nur MD; Vince Jones DO Technologist:RT Susan(R)(CT) CTDI: DLP: Trnscb Date/Time: 01/05/2019 (0055) [email or web address] Orig Print D/T: S: 01/05/2019 (0058) PAGE 2 Signed Report GASTRIC,[id number] 16:33:00 RUN DATE: 11/16/18 [facility] PAGE 1 RUN TIME: 1633 Specimen Inqui ry RUN USER: INTERFACE PATIENT: KALYANI TALAVERA ACCT #: [id number] LOC: [place] U #: [id number] AGE/SX: 63/F ROOM: RE11/15/18REG DR: Kb Bradford MD : 57 BED: DIS: STATUS: [place] TLOC: SPEC #: [id number] RECD: 11/15/18 STATUS: SHREYA BROWN #: [id number] MARILEE: 11/15/18-[address]: Kb Bradford MD ENTERED: 11/15/18 SP TYPE: GASTRIC BX OTHR DR: Lucille Torres MDORDERED: GROSS COPIES TO: Lucille Nur MD [address] [place] [address] Kb Bradford Si, MD [address] [address] PROCEDURES: GROSS ( 11/16/18) TISSUES: [...] WITH NO DISCRETE PATHOLOGIC ULCERATION RRB/sm D 2)06940, 58822 CONTINUED ON NEXT PAGE RUN DATE: 11/16/18 [place] - Lab PAGE 2 RUN TIME: 1633 Specimen Inquiry RUN USER: INTERFACE SPEC #: [id number] PATIENT: KHANH TALAVERA #[id number] (Continued) MACROSC OPIC The first specimen is [...] cm, submitted as (2). GROSS PERFORMED AT [facility] [address] [place] [address] [phone] MICROSCOPIC All of the stains, inc luding any controls performed, stain appropriately. MICROSCOPIC PERFORMED AT [facility] [address] [place] [address] [phone] PERFORMING SITE Diagnosis perf ormed at: [facility] YANETH aceves [address] [place] [address] Signed SIGNATURE ON FILE Tristan Markham MD 11/16/18 1633 * * END OF REPORT [id number] 06:50:00* Test Item Value Reference Range Interpretation Comments GLUBED (test code = GLUBED) 292 mg/dL 74-106 H Performed by certified thread milling machine set up operator at [facility] - XR RIBS UNI 2 V [id number] 14:33:00 FAX: Amish Nur Si [phone] [place]: O St: REG Name: KALYANI CATES [facility] : [birth year] Age/S: 63/F [address] [facility] Unit #: [id number] Loc: [place] [address] Phys: Chris Nur MD Acct: [id number] Dis Date: Status: REG CLI PHONE #: [phone] Exam Date: 11/09/2018 1220 FAX #: [phone] Reason: PAIN EXAMS: CPT CODE: [id number] XR RIBS UNI 2 [place] [address] HISTORY: Pain. NINA RISON: Chest x-ray from [...] Technologist: Claire santos RT(R) Trnscrd Date/Time/By: 11/09/2018 (9892) : By: [email or web address] Orig Print D/T: S: 11/09/2018 (6621) PAGE 1 Signed Report [id number] 17:05:00* Test Item Value Reference Range Interpretation Comments GLUBED (test code = GLUBED) 274 mg/dL 74-106 H Performed by certified thread milling machine set up operator at [facility] [id number] 11:39:00* Test Item Value Reference Range Interpretation Comments GLUBED (test code = GLUBED) 284 mg/dL 74-106 H Performed by certified thread milling machine set up operator at [facility] [id number] 07:48:00* Test Item Value Reference Range Interpretation Comments GLUBED (test code = GLUBED) 285 mg/dL 74-106 H Performed by certified thread milling machine set up operator at [facility] [id number] 20:08:00* Test Item Value Reference Range Interpretation Comments GLUBED (test code = GLUBED) 252 mg/dL 74-106 H Performed by certified thread milling machine set up operator at [facility] [id number] 16:09:00* Test Item Value Reference Range Interpretation Comments GLUBED (test code = GLUBED) 329 mg/dL 74-106 H Performed by certified thread milling machine set up operator at [facility] BASIC METABOLIC [id number] 12:51:00* Test Item Value Reference Range Interpretation [...] CA) 8.6 mg/dL 8.5-10.1 N BASIC METABOLIC [id number] 12:40:00* Test Item Value Reference Range Interpretation [...] CALCIUM (test code = CA) mg/dL 8.5-10.1 [id number] 10:39:00* Test Item Value Reference Range Interpretation Comments GLUBED (test code = GLUBED) 281 mg/dL 74-106 H Performed by certified thread milling machine set up operator at [facility] [id number] 07:54:00* Test Item Value Reference Range Interpretation Comments GLUBED (test code = GLUBED) 299 mg/dL 74-106 H Performed by certified thread milling machine set up operator at [facility] [id number] 21:58:00* Test Item Value Reference Range Interpretation Comments TROPONIN-I (test code = TROPI) <0.015 ng/mL 0-0.045 N SPECIMEN COMMENTS: [id number] 20:26:00* Test Item Value Reference Range Interpretation Comments GLUBED (test code = GLUBED) 340 mg/dL 74-106 H Performed by certified thread milling machine set up operator at [facility] [id number] 17:09:00* Test Item Value Reference Range Interpretation Comments GLUBED (test code = GLUBED) 370 mg/dL 74-106 H Performed by certified thread milling machine set up operator at [facility] [id number] 10:49:00* Test Item Value Reference Range Interpretation Comments GLUBED (test code = GLUBED) 351 mg/dL 74-106 H Performed by certified thread milling machine set up operator at [facility] [id number] 09:54:00* Test Item Value Reference Range Interpretation Comments GLUBED (test code = GLUBED) 304 mg/dL 74-106 H Performed by certified thread milling machine set up operator at [facility] [id number] 09:20:00* Test Item Value Reference Range Interpretation Comments TROPONIN-I (test code = TROPI) <0.015 ng/mL 0-0.045 N COMMENTS TO LOLLYPOP MACHINE OPERATOR: COLLECT 3 HOURS AFTER PREVIOUS [id number] 03:55:00* Test Item Value Reference Range Interpretation Comments TROPONIN-I (test code = TROPI) <0.015 ng/mL 0-0.045 N COMMENTS TO LOLLYPOP MACHINE OPERATOR: COLLECT 3 HOURS AFTER PREVIOUS SAMPLECBC W/AUTO [id number] 01:32:00* Test Item Value Reference Range Interpretation [...] = MDIFF) NO, ONLY SCAN NEEDED DIFFERENTIAL [id number] 01:32:00* Test Item Value Reference Range Interpretation Comments STAIN ACCEPTABILITY (test code = STN ACCEPTABLE) STAIN ACCEPTABLE POLYCHROMASIA (test code = POLC) 1+ HYPOCHROMIA (test code = HYPO) 1+ ANISOCYTOSIS (test code = ANISO) 1+ MICROCYTOSIS (test code = MICR) 1+ PLATELET ESTIMATE (test code = PLTEST) ADEQUATE PLATELET MORPHOLOGY (test code = PLTMORPH) NORMAL URINALYSIS [id number] 01:10:00* Test Item Value Reference Range Interpretation [...] SEEN #/HPF NONE Urine Source? Clean CatchURINALYSIS [id number] 01:06:00* Test Item Value Reference Range Interpretation [...] per HPF NONE Urine Source? Clean CatchURINALYSIS [id number] 01:03:00* Test Item Value Reference Range Interpretation [...] BACU) per HPF NONE Urine Source? Clean [id number] 00:46:00* Test Item Value Reference Range Interpretation Comments GLUBED (test code = GLUBED) 415 mg/dL 74-106 H Performed by certified thread milling machine set up operator at [facility] VENOUS BLOOD [id number] 23:47:00* Test Item Value Reference Range Interpretation [...] METHGB) 0.4 % 0.0-1.50 N COMPREHENSIVE METABOLIC [id number] 23:25:00* Test Item Value Reference Range Interpretation [...] 537 mg/dL 74-106 Re sults called to [id number] by [employer] Technologies[employer].JP1 10/30/18 2325Critical results verified and read back [...] reference range due to change in reagent. [id number] 23:25:00* Test Item Value Reference Range Interpretation Comments LIPASE (test code = LIP) 113 U/L 73.0-393.0 N [id number] 23:25:00* Test Item Value Reference Range Interpretation Comments CKMB (test code = CKMBT) < 1.0 ng/mL 0-6.0 N [id number] 23:25:00* Test Item Value Reference Range Interpretation Comments TROPONIN-I (test code = TROPI) <0.015 ng/mL 0-0.045 N CBC W/AUTO [id number] 23:21:00* Test Item Value Reference Range Interpretation [...] = MDIFF) NO, ONLY SCAN NEEDED DIFFERENTIAL [id number] 23:21:00* Test Item Value Reference Range Interpretation Comments STAIN ACCEPTABILITY (test code = STN ACCEPTABLE) CABOT RINGS (test code = CAB) MORPHOLOGY COMMENT (test code = MOC) PLATELET ESTIMATE (test code = PLTEST) PLATELET MORPHOLOGY (test code = PLTMORPH) CBC W/AUTO [id number] 23:21:00* Test Item Value Reference Range Interpretation [...] = MDIFF) NO, ONLY SCAN NEEDED DIFFERENTIAL [id number] 23:21:00* Test Item Value Reference Range Interpretation Comments STAIN ACCEPTABILITY (test code = STN ACCEPTABLE) CABOT RINGS (test code = CAB) MORPHOLOGY COMMENT (test code = MOC) PLATELET ESTIMATE (test code = PLTEST) PLATELET MORPHOLOGY (test code = PLTMORPH) CBC W/AUTO [id number] 23:21:00* Test Item Value Reference Range Interpretation [...] = MDIFF) NO, ONLY SCAN NEEDED DIFFERENTIAL [id number] 23:21:00* Test Item Value Reference Range Interpretation Comments STAIN ACCEPTABILITY (test code = STN ACCEPTABLE) MORPHOLOGY COMMENT (test code = MOC) PLATELET ESTIMATE (test code = PLTEST) PLATELET MORPHOLOGY (test code = PLTMORPH) CBC W/AUTO [id number] 23:20:00* Test Item Value Reference Range Interpretation [...] = MDIFF) NO, ONLY SCAN NEEDED DIFFERENTIAL [id number] 23:20:00* Test Item Value Reference Range Interpretation Comments STAIN ACCEPTABILITY (test code = STN ACCEPTABLE) CABOT RINGS (test code = CAB) MORPHOLOGY COMMENT (test code = MOC) PLATELET ESTIMATE (test code = PLTEST) PLATELET MORPHOLOGY (test code = PLTMORPH) CBC W/AUTO [id number] 23:08:00* Test Item Value Reference Range Interpretation [...] code = BA#) K/mm3 0.0-0.2 COMPREHENSIVE METABOLIC [id number] 23:06:00* Test Item Value Reference Range Interpretation [...] TOTAL (test code = ALKP) IUnit/L 45-117 [id number] 23:06:00* Test Item Value Reference Range Interpretation Comments LIPASE (test code = LIP) U/L 73.0-393.0 [id number] 23:06:00* Test Item Value Reference Range Interpretation Comments CKMB (test code = CKMBT) ng/mL 0-6.0 [id number] 23:06:00* Test Item Value Reference Range Interpretation Comments TROPONIN-I (test code = TROPI) ng/mL 0-0.045 - XR CHEST 2 [id number] 23:03:00 FAX: Amish Nur, [place]: St: [facility] FAX: Leonora Norton [phone] Name: KALYANI TALAVERA [facility] : 1955 Age/S: 63/F [address] [facility] Unit #: [id number] Loc: [place] [address] Phys: Leonora Goins MD Acct: [id number] Dis Date: Status: REG ER PHONE #: [phone] Exam Date: 10/30/2018 224 FAX #: [phone] Reason: cp EXAMS: CPT CODE: [id number] XR CHEST 2 V 89830 REASON FOR EXAM: cp Exam Order Date: [...] MD Technologist: Janeen Dunbar Trnscrd Date/Time/By: 10/30/2018 (2549) : By: LeanneVTL Orig Print D/T: S: 10/30/2018 (5818) PAGE 1 Signed Report GLUBED 2018-10-12 11:21:00* Test Item Value Reference Range Interpretation Comments GLUBED (test code = GLUBED) 189 mg/dL 74-106 H Performed by certified thread milling machine set up operator at [facility] [id number] 10:37:00* Test Item Value Reference Range Interpretation Comments GLUBED (test code = GLUBED) 190 mg/dL 74-106 H Performed by certified thread milling machine set up operator at [facility] [id number] 21:08:00* Test Item Value Reference Range Interpretation Comments GLUBED (test code = GLUBED) 156 mg/dL 74-106 H Performed by certified thread milling machine set up operator at [facility] [id number] 16:01:00* Test Item Value Reference Range Interpretation Comments GLUBED (test code = GLUBED) 122 mg/dL 74-106 H Performed by certified thread milling machine set up operator at [facility] [id number] 12:56:00* Test Item Value Reference Range Interpretation Comments GLUBED (test code = GLUBED) 173 mg/dL 74-106 H Performed by certified thread milling machine set up operator at [facility] [id number] 07:28:00* Test Item Value Reference Range Interpretation Comments GLUBED (test code = GLUBED) 221 mg/dL 74-106 H Performed by certified thread milling machine set up operator at [facility] [id number] 20:54:00* Test Item Value Reference Range Interpretation Comments GLUBED (test code = GLUBED) 261 mg/dL 74-106 H Performed by certified thread milling machine set up operator at [facility] [id number] 15:03:00* Test Item Value Reference Range Interpretation Comments GLUBED (test code = GLUBED) 167 mg/dL 74-106 H Performed by certified thread milling machine set up operator at [facility] [id number] 11:23:00* Test Item Value Reference Range Interpretation Comments GLUBED (test code = GLUBED) 206 mg/dL 74-106 H Performed by certified thread milling machine set up operator at [facility] BASIC METABOLIC [id number] 07:57:00* Test Item Value Reference Range Interpretation [...] code = CA) 8.5 mg/dL 8.5-10.1 N [id number] 07:29:00* Test Item Value Reference Range Interpretation Comments GLUBED (test code = GLUBED) 239 mg/dL 74-106 H Performed by certified thread milling machine set up operator at [facility] [id number] 05:00:00* Test Item Value Reference Range Interpretation Comments GLUBED (test code = GLUBED) 234 mg/dL 74-106 H Performed by certified thread milling machine set up operator at [facility] [id number] 20:10:00* Test Item Value Reference Range Interpretation Comments GLUBED (test code = GLUBED) 204 mg/dL 74-106 H Performed by certified thread milling machine set up operator at St. [facility] [id number] 17:08:00* Test Item Value Reference Range Interpretation Comments GLUBED (test code = GLUBED) 243 mg/dL 74-106 H Performed by certified thread milling machine set up operator at [facility] T4 EHLW7952-76-26 14:42:00* Test Item Value Reference Range Interpretation Comments T4 FREE (test code = T4F) 7.60 ng/dL 0.76-1.46 H THYROID STIMULATING BOXRAIW2918-13-07 14:42:00* Test Item Value Reference Range Interpretation Comments THYROID STIMULATING HORMONE (test code = TSH) 0.812 uIU/mL 0.36-3.7 4 N TSH REFERENCE RANGES: EUTHYROID: 0.35 - 4.3 mIU/mL HYPO : > 5.5 mIU/mL HYPER : < 0.35 mIU/mL T4 [id number] 14:03:00* Test Item Value Reference Range Interpretation Comments T4 FREE (test code = T4F) ng/dL 0.76-1.46 THYROID STIMULATING [id number] 14:03:00* Test Item Value Reference Range Interpretation Comments THYROID STIMULATING HORMONE (test code = TSH) 0.812 uIU/mL 0.36-3.7 4 N TSH REFERENCE RANGES: EUTHYROID: 0.35 - 4.3 mIU/mL HYPO : > 5.5 mIU/mL HYPER : < 0.35 mIU/mL [id number] 12:01:00* Test Item Value Reference Range Interpretation Comments GLUBED (test code = GLUBED) 232 mg/dL 74-106 H Performed by certified thread milling machine set up operator at [facility] DZJUHO1948-64-23 07:31:00* Test Item Value Reference Range Interpretation Comments GLUBED (test code = GLUBED) 253 mg/dL 74-106 H Performed by certified thread milling machine set up operator at [facility] BASIC METABOLIC [id number] 05:59:00* Test Item Value Reference Range Interpretation [...] CA) 8.4 mg/dL 8.5-10.1 L BASIC METABOLIC [id number] 05:56:00* Test Item Value Reference Range Interpretation [...] CALCIUM (test code = CA) mg/dL 8.5-10.1 [id number] 03:37:00* Test Item Value Reference Range Interpretation Comments GLUBED (test code = GLUBED) 302 mg/dL 74-106 H Performed by certified thread milling machine set up operator at [facility] T4 WNRD9020-35-83 20:00:00* Test Item Value Reference Range Interpretation Comments T4 FREE (test code = T4F) 0.97 ng/dL 0.76-1.46 N THYROID STIMULATING [id number] 20:00:00* Test Item Value Reference Range Interpretation Comments THYROID STIMULATING HORMONE (test code = TSH) 0.336 uIU/mL 0.36-3.7 4 L TSH REFERENCE RANGES: EUTHYROID: 0.35 - 4.3 mIU/mL HYPO : > 5.5 mIU/mL HYPER : < 0.35 mIU/mL [id number] 19:59:00* Test Item Value Reference Range Interpretation Comments GLYCOSYLATED HEMOGLOBIN (HA1C) (test code = GLYHGB) 9.7 % HbA1 4. 8-6.0 H ESTIMATED AVERAGE GLUCOSE (test code = EAG) 232 MG/DL AMESPO9758-97-56 19:43:00* Test Item Value Reference Range Interpretation Comments GLUBED (test code = GLUBED) 301 mg/dL 74-106 H Performed by certified thread milling machine set up operator at [facility] DYGWSK7742-62-02 17:38:00* Test Item Value Reference Range Interpretation Comments GLUBED (test code = GLUBED) 242 mg/dL 74-106 H Performed by certified thread milling machine set up operator at [facility] EMKLVEKA-[id number] 13:43:00* Test Item Value Reference Range Interpretation Comments TROPONIN-I (test code = TROPI) <0.015 ng/mL 0-0.045 N COMMENTS TO LOLLYPOP MACHINE OPERATOR: COLLECT 3 HOURS AFTER PREVIOUS [id number] 13:19:00* Test Item Value Reference Range Interpretation Comments GLUBED (test code = GLUBED) 243 mg/dL 74-106 H Performed by certified thread milling machine set up operator at [facility] YZRPDVSE-B2708-05-18 10:44:00* Test Item Value Reference Range Interpretation Comments TROPONIN-I (test code = TROPI) <0.015 ng/mL 0-0.045 N COMMENTS TO LOLLYPOP MACHINE OPERATOR: COLLECT 3 HOURS AFTER PREVIOUS XFRPEEQJYAVG1004-90-53 08:17:00* Test Item Value Reference Range Interpretation Comments GLUBED (test code = GLUBED) 164 mg/dL 74-106 H Performed by certified thread milling machine set up operator at [facility] BASIC METABOLIC [id number] 08:09:00* Test Item Value Reference Range Interpretation [...] mg/dL 74-106 LL Re sults called to [id number] by JUDITH.AMBAR 10/08/18 0807Critical results verified and [...] CA) 8.5 mg/dL 8.5-10.1 N HEPATIC FUNCTION [id number] 08:09:00* Test Item Value Reference Range Interpretation [...] reference range due to change in reagent. [id number] 08:09:00* Test Item Value Reference Range Interpretation Comments LIPASE (test code = LIP) 70 U/L 73.0-393.0 L [id number] 08:09:00* Test Item Value Reference Range Interpretation [...] into account the patients history. B-TYPE NATRIURETIC NQJLFWU4368-82-76 06:52:00* Test Item Value Reference Range Interpretation Comments B-TYPE NATRIURETIC PEPTIDE (test code = BNP) 10.07 pgram/mL 0-100 N [id number] 06:43:00* Test Item Value Reference Range Interpretation Comments GLUBED (test code = GLUBED) 36 mg/dL 74-106 LL Performed by certified thread milling machine set up operator at [facility] URINALYSIS ETNLLUOG0357-96-32 06:19:00* Test Item Value Reference Range Interpretation [...] FEW #/LPF FEW Urine Source? Clean CatchLACTIC [id number] 06:15:00* Test Item Value Reference Range Interpretation Comments LACTIC ACID (test code = LACT) 0.9 mmol/L 0.4-1.9 N - XR CHEST 1 [id number] 05:44:00 FAX: Amish Nur, [place]: St: REG Name: KALYANI CATES [facility] : [birth year] Age/S: 63/F [address] [facility] Unit #: [id number] Loc: [place] [address] Phys: Elena Cedeño MD Acct: [id number] Dis Date: Status: REG ER PHONE #: [phone] Exam Date: 10/08/2018 05 FAX #: [phone] Reason: CHEST PAIN EXAMS: CPT CODE: [id number] XR CHEST 1 V 90075 HISTORY: Chest pain. Location: C3 COMPARISON:09/18/2017 FINDINGS: There is mild cardiomegaly. There is elevation of the right hemid iaphragm. No pneumothorax. No focal consolidation. No other changes. IMPRESSION: 1. Elevated right hemidiaphragm. Mi ld cardiomegaly. No other acute abnormality. at 0560 Report ed and signed by: Kizzy Dietrich MD CC: Lucille Nur MD Technologist: Marcelino Reid RT(R) Trnscrd Date/Time/By: 10/08/2018 (0544) : By: Festus XC2 Orig Print D/T: S: 10/08/2018 (3591) PAGE 1 Signed Report PROTHROMBIN [id number] 05:38:00* Test Item Value Reference Range Interpretation [...] (2.5-3.5) IS PATIENT ON ANTICOAGULANTS? NTHROMBOPLASTIN TIME [id number] 05:38:00* Test Item Value Reference Range Interpretation Comments THROMBOPLASTIN TIME PARTIAL (test code = PTT) 32.9 seconds 25.0-36. 5 N IS PATIENT ON ANTICOAGULANTS? [id number] 05:38:00* Test Item Value Reference Range Interpretation [...] -Liver cirrhosis - IS PATIENT ON ANTICOAGULANTS? [facility] W/O [id number] 05:27:00* Test Item Value Reference Range Interpretation [...] MPV) 10.6 fL 6.7-11.0 N ARTERIAL BLOOD [id number] 05:25:00* Test Item Value Reference Range Interpretation [...] 16.4 % vol 18.0-22.0 L CBC W/O [id number] 05:20:00* Test Item Value Reference Range Interpretation [...] VOLUME (test code = MPV) fL 6.7-11.0 [id number] 05:06:00* Test Item Value Reference Range Interpretation Comments GLUBED (test code = GLUBED) 73 mg/dL 74-106 L Performed by certified thread milling machine set up operator at [facility] FOREARM RIGHT 2 [id number] 20:47:00 [facility] [address] [address] Patient Name: KALYANI TALAVERA MR #: [id number] : 1955 Age/Sex: 63/F Req #: [id number] Adm Physician: Ordered by: FLO TOLBERT MD Report #: [id number] Location: ER Room/Bed: Procedure: [id number] DX /FOREARM RIGHT 2 VIEW Exam Date: [...] 049 COPY TO: FLO TOLBERT MD Bedside Dlsjzbm0562-92-08 14:02:00 * Test Item Value Reference Range Interpretation Comments Bedside Glucose (test code = 99578-3) 68 70-120 L Meter ID: [id number] [facility] Glucose 2018-07-11 14:02:00* Test Item Value Reference Range Interpretation Comments Bedside Glucose (test code = 80186-7) 68 70-120 L Meter ID: [id number] [facility] Glucose 2018-07-11 14:02:00* Test Item Value Reference Range Interpretation Comments Bedside Glucose (test code = 50201-6) 68 70-120 L Meter ID: [id number] [facility] Qciuojp2037-75-54 12:44:00* Test Item Value Reference Range Interpretation Comments B-Type Natriuretic Peptide (test code = 74786-4) 43.1 0-100 [facility] Flbahrj3739-94-49 12:44:00* Test Item Value Reference Range Interpretation Comments B-Type Natriuretic Peptide (test code = 27980-2) 43.1 0-100 [facility] FAC/PARANAS YR0428-93-09 12:32:00 [facility] [address] [address] Patient Name: KALYANI TALAVERA MR #: [id number] : 1955 Age/Sex: 63/F Req #: [id number] Adm Physician: Ordered by: ELIESER DAWSON MD Report #: [id number] Location: ER Room/Bed: Procedure: [id number] CT/CT MAXIO FAC/PARANAS WO Exam Date: 07/11/18 [...] COPY TO: ELIESER DAWSON MD CT BRAIN [id number] 12:26:[address] [place] [address] Patient Name: KALYANI TALAVERA MR #: [id number] : 1955 Age/Sex: 63/F Req #: [id number] Adm Physician: Ordered by: ELIESER DAWSON MD Report #: [id number] Location: ER Room/Bed: Procedure: [id number] CT/CT BRAIN WO Exam Date: 07/11/18 Exam [...] COPY TO: ELIESER DAWSON MD Lactic Acid Fucsf0948-88-05 12:24:00* Test Item Value Reference Range Interpretation Comments Lactic Acid Level (test code = Lactic Acid Level) 7.1 4.5- 19.8 [facility] Vzdwy8245-85-35 12:24:00* Test Item Value Reference Range Interpretation Comments Lactic Acid Level (test code = Lactic Acid Level) 7.1 4.5- 19.8 [facility] Nmote8319-28-27 12:24:00* Test Item Value Reference Range Interpretation Comments Lactic Acid Level (test code = Lactic Acid Level) 7.1 4.5- 19.8 [facility] Fgygt5192-84-12 12:24:00* Test Item Value Reference Range Interpretation Comments Lactic Acid Level (test code = Lactic Acid Level) 7.1 4.5- 19.8 [facility] Mftly2775-56-05 12:24:00* Test Item Value Reference Range Interpretation Comments Lactic Acid Level (test code = Lactic Acid Level) 7.1 4.5- 19.8 [facility] Jjpzb8294-75-28 12:24:00* Test Item Value Reference Range Interpretation Comments Lactic Acid Level (test code = Lactic Acid Level) 7.1 4.5- 19.8 [facility] Cckzy2860-38-70 12:24:00* Test Item Value Reference Range Interpretation Comments Lactic Acid Level (test code = Lactic Acid Level) 7.1 4.5- 19.8 [facility] Nwieo7841-15-42 12:24:00* Test Item Value Reference Range Interpretation Comments Lactic Acid Level (test code = Lactic Acid Level) 7.1 4.5- 19.8 [facility] Fntew4252-99-14 12:24:00* Test Item Value Reference Range Interpretation Comments Lactic Acid Level (test code = Lactic Acid Level) 7.1 4.5- 19.8 [facility] Vbojp2515-07-18 12:24:00* Test Item Value Reference Range Interpretation Comments Lactic Acid Level (test code = Lactic Acid Level) 7.1 4.5- 19.8 [facility] Arlington[facility] Kinase [id number] 12:17:00* Test Item Value Reference Range Interpretation Comments Creatine Kinase MB (test code = 31034-6) 2.60 0-5.0 [facility] ArlingtonTrJasmine [place] [address]257J4879-11-89 12:17:00* Test Item Value Reference Range Interpretation Comments Troponin I (test code = BCP6613) < 0.001 0-0.300 [facility] Arlington[facility] Kinase IJ9648-51-14 12:17:00* Test Item Value Reference Range Interpretation Comments Creatine Kinase MB (test code = 18658-0) 2.60 0-5.0 [place] 62314018-12-19 12:17:00* Test Item Value Reference Range Interpretation Comments Troponin I (test code = UFK6267) < 0.001 0-0.300 [facility] ArlingtonAct[facility] Partial Thromboplast Time 2018-07-11 12:09:00* Test Item Value Reference Range Interpretation Comments Activated Partial Thromboplast Time (test code = 39748-0) 20.8 23.8-35.[address] [facility] Ewdug8466-26-02 12:09:00* Test Item Value Reference Range Interpretation Comments Sodium Level (test code = 2951-2) 141 136-145 [facility]assium Nwust9302-69-77 12:09:00* Test Item Value Reference Range Interpretation Comments Potassium Level (test code = 2823-3) 4.5 3.5-5.1 [facility] ArlingtonChloride Zryfo1123-13-44 12:09:00* Test Item Value Reference Range Interpretation Comments Chloride Level (test code = 2075-0) 110 98-107 H [facility] ArlingtonCarbon Dioxide Wxdwz9202-38-95 12:09:00* Test Item Value Reference Range Interpretation Comments Carbon Dioxide Level (test code = 2028-9) 22 22-29 [facility] ArlingtonAnion Drh6339-18-38 12:09:00* Test Item Value Reference Range Interpretation Comments Anion Gap (test code = 73771-8) 13.5 8-16 [facility] Arlington[facility] Urea Ctxxdeqx5432-92-97 12:09:00* Test Item Value Reference Range Interpretation Comments Blood Urea Nitrogen (test code = 3094-0) 28 7-26 H [facility] ArlingtonCreatinine2018-12-19 12:09:00* Test Item Value Reference Range Interpretation Comments Creatinine (test code = 2160-0) 0.92 0.57-1.11 [facility] Arlington[facility]UN/Creatinine Bzeff2602-44-61 12:09:00* Test Item Value Reference Range Interpretation Comments BUN/Creatinine Ratio (test code = 3097-3) 30 6-25 H [facility] ArlingtonEstimat Glomerular Filtration Rate 2018-07-11 12:09:00* Test Item Value Reference Range Interpretation Comments Estimat Glomerular Filtration Rate (test code = 898424223) > 60 >60 Ranges were taken from the National Kidney Disease Education Program and the [facility] Kidney Foundation literature.Reference ranges:60 or greater: Byopmy11-67 ( for 3 consecutive months): Chronic kidney disease 15 or less: Kidney failureUSMD Hospital at ArlingtonGlucose Wewnw2493-11-12 12:09:00* Test Item Value Reference Range Interpretation Comments Glucose Level (test code = MQF5180) 62 74-118 L [facility] ArlingtonCalcium Wtasu7080-52-50 12:09:00* Test Item Value Reference Range Interpretation Comments Calcium Level (test code = 87368-9) 9.2 8.4-10.2 [facility] ArlingtonTotal Krscfmyhk7750-69-67 12:09:00* Test Item Value Reference Range Interpretation Comments Total Bilirubin (test code = 1975-2) 0.3 0.2-1.2 [facility] ArlingtonAspartate Amino Transf (AST/SGOT) 2018-07-11 12:09:00* Test Item Value Reference Range Interpretation Comments Aspartate Amino Transf (AST/SGOT) (test code = Aspartate Amino Transf (AST/SGOT)) 17 5-34 [facility] ArlingtonAlanine Aminotransferase (ALT/SGPT) 2018-07-11 12:09:00* Test Item Value Reference Range Interpretation Comments Alanine Aminotransferase (ALT/SGPT) (test code = 1742-6) 18 0-55 [facility] ArlingtonTotal Qgitbdm2757-34-63 12:09:00* Test Item Value Reference Range Interpretation Comments Total Protein (test code = 2885-2) 6.9 6.5-8.1 [facility] ArlingtonAlbumin2018-12-19 12:09:00* Test Item Value Reference Range Interpretation Comments Albumin (test code = 1751-7) 3.6 3.5-5.0 [facility] ArlingtonGlobulin2018-12-19 12:09:00* Test Item Value Reference Range Interpretation Comments Globulin (test code = 03184-9) 3.3 2.3-3.5 [facility] ArlingtonAlbumin/Globulin Mhdkm1696-56-18 12:09:00 * Test Item Value Reference Range Interpretation Comments Albumin/Globulin Ratio (test code = 1759-0) 1.1 0.8-2.0 [facility] ArlingtonAlkaline Pnldbuiykvt9479-76-72 12:09:00* Test Item Value Reference Range Interpretation Comments Alkaline Phosphatase (test code = 6768-6) 55 40-150 [facility] ArlingtonCreatine Hzphsz5832-31-53 12:09:00* Test Item Value Reference Range Interpretation Comments Creatine Kinase (test code = 2157-6) 71 29-168 [facility] ArlingtonActivated Partial Thromboplast Time 2018-07-11 12:09:00* Test Item Value Reference Range Interpretation Comments Activated Partial Thromboplast Time (test code = 65259-1) 20.8 23.8-35.[address] [facility] Xgmbf2329-66-07 12:09:00* Test Item Value Reference Range Interpretation Comments Sodium Level (test code = 2951-2) 141 136-145 [facility] ArlingtonPotassium Hnxco7039-68-48 12:09:00* Test Item Value Reference Range Interpretation Comments Potassium Level (test code = 2823-3) 4.5 3.5-5.1 [facility] ArlingtonChloride Llhaw7804-26-20 12:09:00* Test Item Value Reference Range Interpretation Comments Chloride Level (test code = 2075-0) 110 98-107 H [facility] ArlingtonCarbon Dioxide Gcezp2004-58-74 12:09:00* Test Item Value Reference Range Interpretation Comments Carbon Dioxide Level (test code = 2028-9) 22 22-29 [facility] ArlingtonAnion Cwf8444-45-44 12:09:00* Test Item Value Reference Range Interpretation Comments Anion Gap (test code = 08892-9) 13.5 8-16 [facility] ArlingtonBlood Urea Rftazfrm6244-16-59 12:09:00* Test Item Value Reference Range Interpretation Comments Blood Urea Nitrogen (test code = 3094-0) 28 7-26 H [facility] ArlingtonCreatinine2018-12-19 12:09:00* Test Item Value Reference Range Interpretation Comments Creatinine (test code = 2160-0) 0.92 0.57-1.11 [facility] ArlingtonBUN/Creatinine Uimgv2494-78-42 12:09:00* Test Item Value Reference Range Interpretation Comments BUN/Creatinine Ratio (test code = 3097-3) 30 6-25 H [facility] ArlingtonEstimat Glomerular Filtration Rate 2018-07-11 12:09:00* Test Item Value Reference Range Interpretation Comments Estimat Glomerular Filtration Rate (test code = 317858859) > 60 >60 Ranges were taken from the National Kidney Disease Education Program and the [facility] Kidney Foundation literature.Reference ranges:60 or greater: Xgbksc60-41 ( for 3 consecutive months): Chronic kidney disease 15 or less: Kidney failureUSMD Hospital at ArlingtonGlucose Zwriu2005-14-31 12:09:00* Test Item Value Reference Range Interpretation Comments Glucose Level (test code = RCW5581) 62 74-118 L [facility] ArlingtonCalcium Gzqxt5607-60-46 12:09:00* Test Item Value Reference Range Interpretation Comments Calcium Level (test code = 03143-2) 9.2 8.4-10.2 [facility] ArlingtonTotal Bxpjdepcz1727-23-01 12:09:00* Test Item Value Reference Range Interpretation Comments Total Bilirubin (test code = 1975-2) 0.3 0.2-1.2 [facility] ArlingtonAspartate Amino Transf (AST/SGOT) 2018-07-11 12:09:00* Test Item Value Reference Range Interpretation Comments Aspartate Amino Transf (AST/SGOT) (test code = Aspartate Amino Transf (AST/SGOT)) 17 5-34 [facility] ArlingtonAlanine Aminotransferase (ALT/SGPT) 2018-07-11 12:09:00* Test Item Value Reference Range Interpretation Comments Alanine Aminotransferase (ALT/SGPT) (test code = 1742-6) 18 0-55 [facility] ArlingtonTotal Lrxyxny4161-47-23 12:09:00* Test Item Value Reference Range Interpretation Comments Total Protein (test code = 2885-2) 6.9 6.5-8.1 [facility] ArlingtonAlbumin2018-12-19 12:09:00* Test Item Value Reference Range Interpretation Comments Albumin (test code = 1751-7) 3.6 3.5-5.0 [facility] ArlingtonGlobulin2018-12-19 12:09:00* Test Item Value Reference Range Interpretation Comments Globulin (test code = 22105-1) 3.3 2.3-3.5 [facility] ArlingtonAlbumin/Globulin Rahph8961-64-95 12:09:00 * Test Item Value Reference Range Interpretation Comments Albumin/Globulin Ratio (test code = 1759-0) 1.1 0.8-2.0 [facility] ArlingtonAlkaline Kgkhnnanfpf9690-66-07 12:09:00* Test Item Value Reference Range Interpretation Comments Alkaline Phosphatase (test code = 6768-6) 55 40-150 [facility] ArlingtonCreatine Hplemt1332-50-70 12:09:00* Test Item Value Reference Range Interpretation Comments Creatine Kinase (test code = 2157-6) 71 29-168 [facility] ArlingtonActivated Partial Thromboplast Time 2018-07-11 12:09:00* Test Item Value Reference Range Interpretation Comments Activated Partial Thromboplast Time (test code = 34249-5) 20.8 23.8-35.5 L [facility] ArlingtonProthrombin Vbcs6816-59-01 11:59:00* Test Item Value Reference Range Interpretation Comments Prothrombin Time (test code = 5902-2) 13.5 11.9-14.5 [facility] ArlingtonProthromb Time International Ratio 2018-07-11 11:59:00* Test Item Value Reference Range Interpretation Comments Prothromb Time International Ratio (test code = 6301-6) 0.95 Oral Anticoagulant Therapy INR Values:1. Low Intensity Therapy 1.5 - 2.02 . Moderate Intensity Therapy 2.0 - 3.03. High Intensity Therapy(1) 2.5 - 3. 54. High Intensity Therapy(2) 3.0 - 4.05. Panic Value INR > 5.0 [facility] ArlingtonProthrombin Uink1302-00-51 11:59:00* Test Item Value Reference Range Interpretation Comments Prothrombin Time (test code = 5902-2) 13.5 11.9-14.5 [facility] ArlingtonProthromb Time International Ratio 2018-07-11 11:59:00* Test Item Value Reference Range Interpretation Comments Prothromb Time International Ratio (test code = 6301-6) 0.95 Oral Anticoagulant Therapy INR Values:1. Low Intensity Therapy 1.5 - 2.02 . Moderate Intensity Therapy 2.0 - 3.03. High Intensity Therapy(1) 2.5 - 3. 54. High Intensity Therapy(2) 3.0 - 4.05. Panic Value INR > 5.0 [facility] ArlingtonProthrombin Yboh0731-81-97 11:59:00* Test Item Value Reference Range Interpretation Comments Prothrombin Time (test code = 5902-2) 13.5 11.9-14.5 [facility] ArlingtonProthromb Time International Ratio 2018-07-11 11:59:00* Test Item Value Reference Range Interpretation Comments Prothromb Time International Ratio (test code = 6301-6) 0.95 Oral Anticoagulant Therapy INR Values:1. Low Intensity Therapy 1.5 - 2.02 . Moderate Intensity Therapy 2.0 - 3.03. High Intensity Therapy(1) 2.5 - 3. 54. High Intensity Therapy(2) 3.0 - 4.05. Panic Value INR > 5.0 [facility] ArlingtonWhite Blood Ocqud8800-29-12 11:54:00* Test Item Value Reference Range Interpretation Comments White Blood Count (test code = 6690-2) 6.79 4.8-10.8 [facility] ArlingtonRed Blood Wwmqz6653-19-51 11:54:00* Test Item Value Reference Range Interpretation Comments Red Blood Count (test code = 789-8) 4.38 3.6-5.1 [facility] ArlingtonHemoglobin2018-12-19 11:54:00* Test Item Value Reference Range Interpretation Comments Hemoglobin (test code = 49552-9) 11.4 12.0-16.0 L [facility] ArlingtonHematocrit2018-12-19 11:54:00* Test Item Value Reference Range Interpretation Comments Hematocrit (test code = 4544-3) 38.1 34.2-44.1 [facility] ArlingtonMean Corpuscular Jbfdzl9693-87-87 11:54:00* Test Item Value Reference Range Interpretation Comments Mean Corpuscular Volume (test code = 787-2) 87.0 81-99 [facility] ArlingtonMean Corpuscular Zjoqtwhmql2612-85-59 11:54:00* Test Item Value Reference Range Interpretation Comments Mean Corpuscular Hemoglobin (test code = 785-6) 26.0 28-32 L [facility] ArlingtonMean Corpuscular Hemoglobin Concent 2018-07-11 11:54:00* Test Item Value Reference Range Interpretation Comments Mean Corpuscular Hemoglobin Concent (test code = 786-4) 29.9 31-35 L [facility] ArlingtonRed Cell Distribution Qchcz1808-58-13 11:54:00* Test Item Value Reference Range Interpretation Comments Red Cell Distribution Width (test code = 21865-5) 16.0 11.7 -14.4 H [facility] ArlingtonPlatelet Iguew0213-92-25 11:54:00* Test Item Value Reference Range Interpretation Comments Platelet Count (test code = 777-3) 204 140-360 [facility] ArlingtonNeutrophils (%) (Auto)2018-07-11 11:54:00 * Test Item Value Reference Range Interpretation Comments Neutrophils (%) (Auto) (test code = 35279-8) 76.3 38.7-80.0 [facility] ArlingtonLymphocytes (%) (Auto)2018-07-11 11:54:00 * Test Item Value Reference Range Interpretation Comments Lymphocytes (%) (Auto) (test code = 736-9) 10.3 18.0-39.1 L [facility] ArlingtonMonocytes (%) (Auto)2018-07-11 11:54:00* Test Item Value Reference Range Interpretation Comments Monocytes (%) (Auto) (test code = 5905-5) 5.9 4.4-11.3 [facility] ArlingtonEosinophils (%) (Auto)2018-07-11 11:54:00 * Test Item Value Reference Range Interpretation Comments Eosinophils (%) (Auto) (test code = 713-8) 2.7 0.0-6.0 [facility] ArlingtonBasophils (%) (Auto)2018-07-11 11:54:00* Test Item Value Reference Range Interpretation Comments Basophils (%) (Auto) (test code = 706-2) 1.0 0.0-1.0 [facility] %2018-07-11 11:54:00* Test Item Value Reference Range Interpretation Comments IM GRANULOCYTES % (test code = IM GRANULOCYTES %) 3.8 0.0- 1.0 H [facility] ArlingtonNeutrophils # (Auto)2018-07-11 11:54:00* Test Item Value Reference Range Interpretation Comments Neutrophils # (Auto) (test code = 751-8) 5.2 2.1-6.9 [facility]Lymphocytes # (Auto)2018-07-11 11:54:00* Test Item Value Reference Range Interpretation Comments Lymphocytes # (Auto) (test code = 58717-2) 0.7 1.0-3.2 L [facility] ArlingtonMonocytes # (Auto)2018-07-11 11:54:00* Test Item Value Reference Range Interpretation Comments Monocytes # (Auto) (test code = 742-7) 0.4 0.2-0.8 [facility]Eosinophils # (Auto)2018-07-11 11:54:00* Test Item Value Reference Range Interpretation Comments Eosinophils # (Auto) (test code = 711-2) 0.2 0.0-0.4 [facility]ophils # (Auto)2018-07-11 11:54:00* Test Item Value Reference Range Interpretation Comments Basophils # (Auto) (test code = 704-7) 0.1 0.0-0.1 [facility] ArlingtonAbsolute Immature Granulocyte (auto 2018-07-11 11:54:00* Test Item Value Reference Range Interpretation Comments Absolute Immature Granulocyte (auto (joseph t code = Absolute Immature Granulocyte (auto) 0.26 0-0.1 H [facility] ArlingtonWhite Blood Yhkng4165-96-48 11:54:00* Test Item Value Reference Range Interpretation Comments White Blood Count (test code = 6690-2) 6.79 4.8-10.8 [facility] ArlingtonRed Blood Nakqw1665-40-93 11:54:00* Test Item Value Reference Range Interpretation Comments Red Blood Count (test code = 789-8) 4.38 3.6-5.1 [facility]Hemoglobin2018-12-19 11:54:00* Test Item Value Reference Range Interpretation Comments Hemoglobin (test code = 00830-5) 11.4 12.0-16.0 L [facility] ArlingtonHematocrit2018-12-19 11:54:00* Test Item Value Reference Range Interpretation Comments Hematocrit (test code = 4544-3) 38.1 34.2-44.1 [facility] ArlingtonMean Corpuscular Widnsb7626-19-92 11:54:00* Test Item Value Reference Range Interpretation Comments Mean Corpuscular Volume (test code = 787-2) 87.0 81-99 [facility] ArlingtonMean Corpuscular Pokvyyybmu7694-66-42 11:54:00* Test Item Value Reference Range Interpretation Comments Mean Corpuscular Hemoglobin (test code = 785-6) 26.0 28-32 L [facility] ArlingtonMean Corpuscular Hemoglobin Concent 2018-07-11 11:54:00* Test Item Value Reference Range Interpretation Comments Mean Corpuscular Hemoglobin Concent (test code = 786-4) 29.9 31-35 L [facility] ArlingtonRed Cell Distribution Ubdii5428-39-90 11:54:00* Test Item Value Reference Range Interpretation Comments Red Cell Distribution Width (test code = 73860-0) 16.0 11.7 -14.4 H [facility] ArlingtonPlatelet Uszib0553-72-03 11:54:00* Test Item Value Reference Range Interpretation Comments Platelet Count (test code = 777-3) 204 140-360 [facility] ArlingtonNeutrophils (%) (Auto)2018-07-11 11:54:00 * Test Item Value Reference Range Interpretation Comments Neutrophils (%) (Auto) (test code = 83807-8) 76.3 38.7-80.0 [facility] ArlingtonLymphocytes (%) (Auto)2018-07-11 11:54:00 * Test Item Value Reference Range Interpretation Comments Lymphocytes (%) (Auto) (test code = 736-9) 10.3 18.0-39.1 L [facility] ArlingtonMonocytes (%) (Auto)2018-07-11 11:54:00* Test Item Value Reference Range Interpretation Comments Monocytes (%) (Auto) (test code = 5905-5) 5.9 4.4-11.3 [facility]Eosinophils (%) (Auto)2018-07-11 11:54:00 * Test Item Value Reference Range Interpretation Comments Eosinophils (%) (Auto) (test code = 713-8) 2.7 0.0-6.0 [facility]Basophils (%) (Auto)2018-07-11 11:54:00* Test Item Value Reference Range Interpretation Comments Basophils (%) (Auto) (test code = 706-2) 1.0 0.0-1.0 [facility]IM GRANULOCYTES %2018-07-11 11:54:00* Test Item Value Reference Range Interpretation Comments IM GRANULOCYTES % (test code = IM GRANULOCYTES %) 3.8 0.0- 1.0 H [facility] ArlingtonNeutrophils # (Auto)2018-07-11 11:54:00* Test Item Value Reference Range Interpretation Comments Neutrophils # (Auto) (test code = 751-8) 5.2 2.1-6.9 [facility] ArlingtonLymphocytes # (Auto)2018-07-11 11:54:00* Test Item Value Reference Range Interpretation Comments Lymphocytes # (Auto) (test code = 36870-2) 0.7 1.0-3.2 L [facility] ArlingtonMonocytes # (Auto)2018-07-11 11:54:00* Test Item Value Reference Range Interpretation Comments Monocytes # (Auto) (test code = 742-7) 0.4 0.2-0.8 [facility]Eosinophils # (Auto)2018-07-11 11:54:00* Test Item Value Reference Range Interpretation Comments Eosinophils # (Auto) (test code = 711-2) 0.2 0.0-0.4 [facility] ArlingtonBasophils # (Auto)2018-07-11 11:54:00* Test Item Value Reference Range Interpretation Comments Basophils # (Auto) (test code = 704-7) 0.1 0.0-0.1 [facility] ArlingtonAbsolute Immature Granulocyte (auto 2018-07-11 11:54:00* Test Item Value Reference Range Interpretation Comments Absolute Immature Granulocyte (auto (joseph t code = Absolute Immature Granulocyte (auto) 0.26 0-0.1 H [facility] ArlingtonCT CERVICAL SPINE WT3549-40-08 11:47:00 [place] [address] Patient Name: KALYANI TALAVERA MR #: [id number] : 1955 Age/Sex: 63/F Req #: [id number] Adm Physician: Ordered by: ELIESER DAWSON MD Report #: [id number] Location: ER Room/Bed: Procedure: [id number] CT/CT CERVICAL SPINE WO Exam Date: 07/11/18 [...] 1154 COPY TO: ELIESER DAWSON MD Bedside Llxgwgi3901-81-30 11:57:00* Test Item Value Reference Range Interpretation Comments Bedside Glucose (test code = 46169-7) 329 70-120 H Meter ID: [id number] Trail [facility] Hospitalodium Level 2018-07-03 09:09:00* Test Item Value Reference Range Interpretation Comments Sodium Level (test code = 2951-2) 132 136-145 L [facility] ArlingtonPotassium Ijexp3906-32-40 09:09:00* Test Item Value Reference Range Interpretation Comments Potassium Level (test code = 2823-3) 4.6 3.5-5.1 [facility] ArlingtonChloride Ynmls9831-31-24 09:09:00* Test Item Value Reference Range Interpretation Comments Chloride Level (test code = 2075-0) 95 98-107 L [facility] ArlingtonCarbon Dioxide Jcofo0475-61-49 09:09:00* Test Item Value Reference Range Interpretation Comments Carbon Dioxide Level (test code = 8-9) 24 22-29 [facility] ArlingtonAnion Exb3401-10-79 09:09:00* Test Item Value Reference Range Interpretation Comments Anion Gap (test code = 83278-9) 17.6 8-16 H [facility] ArlingtonBlood Urea Odfloffk1471-04-34 09:09:00* Test Item Value Reference Range Interpretation Comments Blood Urea Nitrogen (test code = 3094-0) 52 7-26 H [facility] ArlingtonCreatinine2018-12-11 09:09:00* Test Item Value Reference Range Interpretation Comments Creatinine (test code = 2160-0) 1.72 0.57-1.11 H [facility] ArlingtonBUN/Creatinine Fqphz2369-77-79 09:09:00* Test Item Value Reference Range Interpretation Comments BUN/Creatinine Ratio (test code = 3097-3) 30 6-25 H [facility] ArlingtonEstimat Glomerular Filtration Rate 2018-07-03 09:09:00* Test Item Value Reference Range Interpretation Comments Estimat Glomerular Filtration Rate (test code = 376418481) 30 >60 L Ranges were taken from the National Kidney Disease Education Program and the Jenise counts include [facility] Kid[facility] literature.Reference ranges:60 or greater: Czbbdo83-77 ( for 3 consecutive months): Chronic kidney disease 15 or less: Kidney failureUSMD Hospital at ArlingtonGlucose Ffixz1902-70-35 09:09:00* Test Item Value Reference Range Interpretation Comments Glucose Level (test code = JPI4981) 218 74-118 H [facility] ArlingtonCalcium Bpkqo4139-90-14 09:09:00* Test Item Value Reference Range Interpretation Comments Calcium Level (test code = 83224-7) 9.1 8.4-10.2 [facility] ArlingtonTotal Goajhhbxk7838-62-25 09:09:00* Test Item Value Reference Range Interpretation Comments Total Bilirubin (test code = 1975-2) 0.4 0.2-1.2 [facility] ArlingtonAspartate Amino Transf (AST/SGOT) 2018-07-03 09:09:00* Test Item Value Reference Range Interpretation Comments Aspartate Amino Transf (AST/SGOT) (test code = Aspartate Amino Transf (AST/SGOT)) 9 5-34 [facility] ArlingtonAlanine Aminotransferase (ALT/SGPT) 2018-07-03 09:09:00* Test Item Value Reference Range Interpretation Comments Alanine Aminotransferase (ALT/SGPT) (test code = 1742-6) 12 0-55 [facility] ArlingtonTotal Rqjfwvd8692-98-34 09:09:00* Test Item Value Reference Range Interpretation Comments Total Protein (test code = 2885-2) 7.2 6.5-8.1 [facility] ArlingtonAlbumin2018-12-11 09:09:00* Test Item Value Reference Range Interpretation Comments Albumin (test code = 1751-7) 3.4 3.5-5.0 L [facility] ArlingtonGlobulin2018-12-11 09:09:00* Test Item Value Reference Range Interpretation Comments Globulin (test code = 81993-8) 3.8 2.3-3.5 H [facility] ArlingtonAlbumin/Globulin Wxhoh8922-50-67 09:09:00 * Test Item Value Reference Range Interpretation Comments Albumin/Globulin Ratio (test code = 1759-0) 0.9 0.8-2.0 [facility] ArlingtonAlkaline Iyocdvxxjbm9767-47-43 09:09:00* Test Item Value Reference Range Interpretation Comments Alkaline Phosphatase (test code = 6768-6) 59 40-150 [facility] ArlingtonCHEST SINGLE (NOT PORTABLE)2018-07-01 13:32:00 [place] [address] Patient Name: KALYANI TALAVERA MR #: [id number] : 1955 Age/Sex: 63/F Req #: [id number] Adm Physician: LUCILLE OLIVO MD Ordered by: BENJAMIN MASTERS MD Report #: [id number] Location: [facility] Room/Bed: [place] [address] Procedure: [id number] DX/CHEST SINGLE (NOT PORTABLE) Exam Date: 07/01/18 [...] COPY TO: BENJAMIN MASTERS MD Hemoglobin A1c Bvjmoxq9888-21-64 13:20:00* Test Item Value Reference Range Interpretation Comments Hemoglobin A1c Percent (test code = Hemoglobin A1c Percent) 8.4 4.0-7.0 H [facility] ArlingtonHemoglobin A1c Zaxcbul1978-58-44 13:20:00 * Test Item Value Reference Range Interpretation Comments Hemoglobin A1c Percent (test code = Hemoglobin A1c Percent) 8.4 4.0-7.0 H [facility] ArlingtonHemoglobin A1c Honoytx5432-02-49 13:20:00 * Test Item Value Reference Range Interpretation Comments Hemoglobin A1c Percent (test code = Hemoglobin A1c Percent) 8.4 4.0-7.0 H [facility] ArlingtonHemoglobin A1c Tueoblb7432-15-18 13:20:00 * Test Item Value Reference Range Interpretation Comments Hemoglobin A1c Percent (test code = Hemoglobin A1c Percent) 8.4 4.0-7.0 H [facility] ArlingtonVQ LUNG SCAN VENT VRHEIVNZM6981-62-55 16:24:00 [facility] [address] [place] [address] Patient Name: KALYANI TALAVERA MR #: [id number] : 1955 Age/Sex: 63/F Req #: [id number] Adm Physician: LUCILLE OLIVO MD Ordered by: JACINDA BUSTILLOS MD Report #: [id number] Location: [facility] Room/Bed: [place] [address] Procedure: [id number] N M/VQ LUNG SCAN VENT PERFUSION Exam [...] COPY TO: JACINDA VILLAGOMEZ MD Creatine Kinase GO1431-27-53 08:14:00* Test Item Value Reference Range Interpretation Comments Creatine Kinase MB (test code = 95268-4) 1.50 0-5.0 [facility] ArlingtonTroponin O4718-90-61 08:14:00* Test Item Value Reference Range Interpretation Comments Troponin I (test code = RXP7602) < 0.001 0-0.300 [facility] ArlingtonCreatine Jfixqk7644-04-99 08:07:00* Test Item Value Reference Range Interpretation Comments Creatine Kinase (test code = 2157-6) 61 29-168 [facility] ArlingtonB-Type Natriuretic Ugtvool4705-82-10 07:10:00* Test Item Value Reference Range Interpretation Comments B-Type Natriuretic Peptide (test code = 29228-8) < 10.0 0-100 [facility] ArlingtonWhite Blood Jlyrd6593-12-72 05:51:00* Test Item Value Reference Range Interpretation Comments White Blood Count (test code = 6690-2) 6.29 4.8-10.8 [facility] ArlingtonRed Blood Klcek2446-26-00 05:51:00* Test Item Value Reference Range Interpretation Comments Red Blood Count (test code = 789-8) 4.36 3.6-5.1 [facility] ArlingtonHemoglobin2018-12-06 05:51:00* Test Item Value Reference Range Interpretation Comments Hemoglobin (test code = 77631-0) 11.1 12.0-16.0 L [facility] ArlingtonHematocrit2018-12-06 05:51:00* Test Item Value Reference Range Interpretation Comments Hematocrit (test code = 4544-3) 37.1 34.2-44.1 [facility] ArlingtonMean Corpuscular Liiuqj6760-75-97 05:51:00* Test Item Value Reference Range Interpretation Comments Mean Corpuscular Volume (test code = 787-2) 85.1 81-99 [facility] ArlingtonMean Corpuscular Wczvwvstxa9399-65-93 05:51:00* Test Item Value Reference Range Interpretation Comments Mean Corpuscular Hemoglobin (test code = 785-6) 25.5 28-32 L [facility] ArlingtonMean Corpuscular Hemoglobin Concent 2018-06-28 05:51:00* Test Item Value Reference Range Interpretation Comments Mean Corpuscular Hemoglobin Concent (test code = 786-4) 29.9 31-35 L [facility] ArlingtonRed Cell Distribution Uwnxq0755-37-04 05:51:00* Test Item Value Reference Range Interpretation Comments Red Cell Distribution Width (test code = 64241-5) 15.7 11.7 -14.4 H [facility] ArlingtonPlatelet Yurkc0227-08-45 05:51:00* Test Item Value Reference Range Interpretation Comments Platelet Count (test code = 777-3) 162 140-360 [facility] ArlingtonNeutrophils (%) (Auto)2018-06-28 05:51:00 * Test Item Value Reference Range Interpretation Comments Neutrophils (%) (Auto) (test code = 46088-5) 75.4 38.7-80.0 [facility] ArlingtonLymphocytes (%) (Auto)2018-06-28 05:51:00 * Test Item Value Reference Range Interpretation Comments Lymphocytes (%) (Auto) (test code = 736-9) 13.0 18.0-39.1 L [facility] ArlingtonMonocytes (%) (Auto)2018-06-28 05:51:00* Test Item Value Reference Range Interpretation Comments Monocytes (%) (Auto) (test code = 5905-5) 7.3 4.4-11.3 [facility] ArlingtonEosinophils (%) (Auto)2018-06-28 05:51:00 * Test Item Value Reference Range Interpretation Comments Eosinophils (%) (Auto) (test code = 713-8) 2.7 0.0-6.0 [facility] ArlingtonBasophils (%) (Auto)2018-06-28 05:51:00* Test Item Value Reference Range Interpretation Comments Basophils (%) (Auto) (test code = 706-2) 1.0 0.0-1.0 [facility] ArlingtonIM GRANULOCYTES %2018-06-28 05:51:00* Test Item Value Reference Range Interpretation Comments IM GRANULOCYTES % (test code = IM GRANULOCYTES %) 0.6 0.0- 1.0 [facility] ArlingtonNeutrophils # (Auto)2018-06-28 05:51:00* Test Item Value Reference Range Interpretation Comments Neutrophils # (Auto) (test code = 751-8) 4.7 2.1-6.9 [facility] ArlingtonLymphocytes # (Auto)2018-06-28 05:51:00* Test Item Value Reference Range Interpretation Comments Lymphocytes # (Auto) (test code = 68278-0) 0.8 1.0-3.2 L [facility] ArlingtonMonocytes # (Auto)2018-06-28 05:51:00* Test Item Value Reference Range Interpretation Comments Monocytes # (Auto) (test code = 742-7) 0.5 0.2-0.8 [facility] ArlingtonEosinophils # (Auto)2018-06-28 05:51:00* Test Item Value Reference Range Interpretation Comments Eosinophils # (Auto) (test code = 711-2) 0.2 0.0-0.4 [facility] ArlingtonBasophils # (Auto)2018-06-28 05:51:00* Test Item Value Reference Range Interpretation Comments Basophils # (Auto) (test code = 704-7) 0.1 0.0-0.1 [facility] ArlingtonAbsolute Immature Granulocyte (auto 2018-06-28 05:51:00* Test Item Value Reference Range Interpretation Comments Absolute Immature Granulocyte (auto (joseph t code = Absolute Immature Granulocyte (auto) 0.04 0-0.1 [facility] ArlingtonCHEST 2 XQMFK3348-34-57 04:37:00 [place] [address] Patient Name: KALYANI TALAVERA MR #: [id number] : 1955 Age/Sex: 63/F Req #: [id number] [facility] Physician: Ordered by: JACQUES JANE MD Report #: [id number] Location: ER Room/Bed: Procedure: [id number] 0011 DX/CHEST [...] on 06/27/18439 COPY TO: JACQUES HOOD MD XNUEOCT7418-90-37 13:15:00 RUN DATE: 06/21/18 [place] [facility] PAGE 1 RUN TIME: 1316 Specimen Inqui ry RUN USER: INTERFACE PATIENT: KALYANI TALAVERA ACCT #: [id number] LOC: [place] #: [id number] AGE/SX: 63/F ROOM: RE06/19/18REG DR: Kb Bradford MD : 57 BED: DIS: STATUS: [facility] TLOC: SPEC #: [id number] RECD: 06/20/18 STATUS: [facility] #: [id number] MARILEE: 06/19/18- DR: Kb Bradford MD ENTERED: 06/20/18 SP TYPE: STOMACH OTHR DR: Lucille Torres MDORDERED: GROSS COPIES TO: Lucille Nur MD [address] [address] [employer] [address] [place], [place] [id number] Kb Bradford Si, MD [address] 1958 [address] [address] PROCEDURES: GROSS ( 06/21/18-1249) TISSUES: ANTRAL BIOPSY - H-PYLORI CLINICAL HIST ORY COLLECTION DATE: 06/19/18 DYSPHAGIA, HEARTBURN POST-OP DIAGNOSIS: HIATAL HERNIA, GASTRITIS FINAL DIAGNOSIS Stomach, antrum, biopsy: REACTIVE GASTROPATHY CONTROLLED GIEMSA STAIN NEGATIVE FOR HELICOBAC TER ORGANISMS NEGATIVE FOR MALIGNANCY MARYAM/sm D 27868, [address] MACROSCOPIC The specimen is received in formalin, labeled with the lis ent's name, identified as "antrum bx", and consists of two gutierrez biopsy tissue m easuring 0.3 cm each, submitted for H E and Giemsa stains. GROSS PERFORM ED AT [facility] CONTINUED ON NEXT PAG E RUN DATE: 06/21/18 [facility] PAGE 2 RUN TIME: 1315 Specimen Inquiry RUN USER: INTERFACE SPEC #: [id number] PATIENT: KHANH TALAVERA #[id number] (Continued) MACROSCO PIC (Continued) [facility] [address] [place] [address] (p)[phone] MICROSCOPIC MICROSCOPIC PERFOR MED AT [facility] All of the stains, including any controls perfor med, stain appropriately. [facility] [address] [place] [address] (P)[phone] PERFORMING SITE Diagnosis performed at: [facility], YANETH [address] [place] [phone] Signed SIGNATURE ON FILE Stacey Fuller 06/21/18 1315 END OF REPORT B-Type Natriuretic Esgdtlw5108-81-85 03:14:00* Test Item Value Reference Range Interpretation Comments B-Type Natriuretic Peptide (test code = 03220-0) 10.5 0-100 [facility] ArlingtonCreatine Kinase CQ9905-25-41 03:14:00* Test Item Value Reference Range Interpretation Comments Creatine Kinase MB (test code = 34953-4) 1.30 0-5.0 [facility] ArlingtonTroponin S4400-84-05 03:14:00* Test Item Value Reference Range Interpretation Comments Troponin I (test code = XOP6266) -0.001 0-0.300 [facility] ArlingtonBedside Yisanhc3376-29-06 03:04:00* Test Item Value Reference Range Interpretation Comments Bedside Glucose (test code = 19417-6) 291 70-120 [address] Meter ID: [id number] Baptist Hospitalodium Level 2018-04-03 02:45:00* Test Item Value Reference Range Interpretation Comments Sodium Level (test code = 2951-2) 140 136-145 [facility] ArlingtonPotassium Stqwu6613-93-35 02:45:00* Test Item Value Reference Range Interpretation Comments Potassium Level (test code = 2823-3) 3.8 3.5-5.1 [facility] ArlingtonChloride Yguia9533-27-34 02:45:00* Test Item Value Reference Range Interpretation Comments Chloride Level (test code = 2075-0) 100 98-107 [facility] ArlingtonCarbon Dioxide Lplsd0961-78-29 02:45:00* Test Item Value Reference Range Interpretation Comments Carbon Dioxide Level (test code = 2028-9) 29 22-29 [facility] ArlingtonAnion Wuy3497-52-36 02:45:00* Test Item Value Reference Range Interpretation Comments Anion Gap (test code = 63282-2) 14.8 8-16 [facility] ArlingtonBlood Urea Jsxwbzkm6988-34-05 02:45:00* Test Item Value Reference Range Interpretation Comments Blood Urea Nitrogen (test code = 3094-0) 49 7-26 H [facility] ArlingtonCreatinine2018-09-11 02:45:00* Test Item Value Reference Range Interpretation Comments Creatinine (test code = 2160-0) 1.93 0.57-1.11 H [facility] ArlingtonBUN/Creatinine Oauyo3260-89-66 02:45:00* Test Item Value Reference Range Interpretation Comments BUN/Creatinine Ratio (test code = 3097-3) 25 6-25 [facility] ArlingtonEstimat Glomerular Filtration Rate 2018-04-03 02:45:00* Test Item Value Reference Range Interpretation Comments Estimat Glomerular Filtration Rate (test code = 16260-9) 26 >60 L Ranges were taken from the National Kidney Disease Education Program and the Jenise counts include [facility] literature.Reference ranges:60 or greater: Nszeta72-74 ( for 3 consecutive months): Chronic kidney disease 15 or less: Kidney failureUSMD Hospital at ArlingtonGlucose Irwww6639-18-63 02:45:00* Test Item Value Reference Range Interpretation Comments Glucose Level (test code = RJC7932) 58 74-118 LL Results called to LU HARMON RN at 0244 on 04/03/18 by Francoise Proctor. RB [place]. [facility] ArlingtonCalcium Uiqbz6604-33-27 02:45:00* Test Item Value Reference Range Interpretation Comments Calcium Level (test code = 57129-3) 9.3 8.4-10.2 [facility] ArlingtonTotal Ubafrkpqn7897-95-38 02:45:00* Test Item Value Reference Range Interpretation Comments Total Bilirubin (test code = 1975-2) 0.2 0.2-1.2 [facility] ArlingtonAspartate Amino Transf (AST/SGOT) 2018-04-03 02:45:00* Test Item Value Reference Range Interpretation Comments Aspartate Amino Transf (AST/SGOT) (test code = Aspartate Amino Transf (AST/SGOT)) 18 5-34 [facility] ArlingtonAlanine Aminotransferase (ALT/SGPT) 2018-04-03 02:45:00* Test Item Value Reference Range Interpretation Comments Alanine Aminotransferase (ALT/SGPT) (test code = 1742-6) 18 0-55 [facility] ArlingtonTotal Yotzyeu6876-81-21 02:45:00* Test Item Value Reference Range Interpretation Comments Total Protein (test code = 2885-2) 7.3 6.5-8.1 [facility] ArlingtonAlbumin2018-09-11 02:45:00* Test Item Value Reference Range Interpretation Comments Albumin (test code = 1751-7) 3.5 3.5-5.0 [facility] ArlingtonGlobulin2018-09-11 02:45:00* Test Item Value Reference Range Interpretation Comments Globulin (test code = 18981-0) 3.8 2.3-3.5 H [facility] ArlingtonAlbumin/Globulin Eqqjd8088-32-57 02:45:00 * Test Item Value Reference Range Interpretation Comments Albumin/Globulin Ratio (test code = 1759-0) 0.9 0.8-2.0 [facility] ArlingtonAlkaline Jbajupvhqfl1175-03-52 02:45:00* Test Item Value Reference Range Interpretation Comments Alkaline Phosphatase (test code = 6768-6) 56 40-150 [facility] ArlingtonCreatine Refgfk6493-61-88 02:45:00* Test Item Value Reference Range Interpretation Comments Creatine Kinase (test code = 2157-6) 54 29-168 [facility] ArlingtonUrine Tgtxh1425-71-64 02:37:00* Test Item Value Reference Range Interpretation Comments Urine Color (test code = 5778-6) COLORLESS YELLOW [facility] ArlingtonUrine Ytqfyng3343-56-80 02:37:00* Test Item Value Reference Range Interpretation Comments Urine Clarity (test code = 47396-2) CLEAR CLEAR [facility] ArlingtonUrine Specific Uelimdb5287-56-32 02:37:00 * Test Item Value Reference Range Interpretation Comments Urine Specific [place] (test code = 5811-5) 1.005 1.010-1.02 5 L [facility] ArlingtonUrine tV5721-13-60 02:37:00* Test Item Value Reference Range Interpretation Comments Urine pH (test code = 87907-2) 7 5-7 [facility] ArlingtonU[facility] Leukocyte Exzbsuqd0788-97-41 02:37:00* Test Item Value Reference Range Interpretation Comments Urine Leukocyte Esterase (test code = 5799-2) NEGATIVE NEGATIVE [facility] ArlingtonUrine Kqrjduh9110-37-35 02:37:00* Test Item Value Reference Range Interpretation Comments Urine Nitrite (test code = 88368-1) NEGATIVE NEGATIVE [facility] ArlingtonUrine Zbwwluh2371-16-36 02:37:00* Test Item Value Reference Range Interpretation Comments Urine Protein (test code = 5804-0) NEGATIVE NEGATIVE [facility] ArlingtonUrine Glucose (UA)2018-04-03 02:37:00* Test Item Value Reference Range Interpretation Comments Urine Glucose (UA) (test code = 2349-9) NEGATIVE NEGATIVE [facility] ArlingtonUrine Nobtebs1439-93-74 02:37:00* Test Item Value Reference Range Interpretation Comments Urine Ketones (test code = 45419-4) NEGATIVE NEGATIVE [facility] ArlingtonUrine Ictcgjllauvs0884-35-57 02:37:00* Test Item Value Reference Range Interpretation Comments Urine Urobilinogen (test code = 38019-6) 0.2 0.2-1 [facility] [facility] Kghsufjyn7460-44-81 02:37:00* Test Item Value Reference Range Interpretation Comments Urine Bilirubin (test code = 1978-6) [facility]GAT[facility]IVE [facility] Vyjli6604-70-81 02:37:00* Test Item Value Reference Range Interpretation Comments Urine Blood (test code = 12210-1) TRACE NEGATIVE H [facility] SRY3655-68-06 02:37:00* Test Item Value Reference Range Interpretation Comments Urine WBC (test code = 5821-4) 0-5 0-5 [facility] NXC9284-72-68 02:37:00* Test Item Value Reference Range Interpretation Comments Urine RBC (test code = 09791-2) 0-5 0-5 [facility] Icsoebiq1432-62-15 02:37:00* Test Item Value Reference Range Interpretation Comments Urine Bacteria (test code = 51649-5) RARE NONE [facility] Epithelial Yocqc5695-70-60 02:37:00 * Test Item Value Reference Range Interpretation Comments Urine Epithelial Cells (test code = 57201-9) FEW NONE [facility] Qayfa8417-06-99 02:37:00* Test Item Value Reference Range Interpretation Comments Urine Color (test code = 5778-6) COLORLESS YELLOW [facility] Ublarxo0039-69-77 02:37:00* Test Item Value Reference Range Interpretation Comments Urine Clarity (test code = 39979-2) CLEAR CLEAR [facility] Specific Xrmlzyy6052-39-33 02:37:00 * Test Item Value Reference Range Interpretation Comments Urine Specific [place] (test code = 5811-5) 1.005 1.010-1.02 5 L [facility] vJ8167-77-58 02:37:00* Test Item Value Reference Range Interpretation Comments Urine pH (test code = 02039-3) 7 5-7 [facility] Leukocyte Aftsdcjx6576-46-77 02:37:00* Test Item Value Reference Range Interpretation Comments Urine Leukocyte Esterase (test code = 5799-2) NEGATIVE NEGATIVE [facility] Yriqdnt1444-54-35 02:37:00* Test Item Value Reference Range Interpretation Comments Urine Nitrite (test code = 08718-2) NEGATIVE NEGATIVE [facility] Mamdsis7813-01-63 02:37:00* Test Item Value Reference Range Interpretation Comments Urine Protein (test code = 5804-0) NEGATIVE NEGATIVE [facility] Glucose (UA)2018-04-03 02:37:00* Test Item Value Reference Range Interpretation Comments Urine Glucose (UA) (test code = 2349-9) NEGATIVE NEGATIVE [facility] Gjhiwtp4493-53-03 02:37:00* Test Item Value Reference Range Interpretation Comments Urine Ketones (test code = 12663-6) NEGATIVE NEGATIVE [facility] Fnsmmnrtbiwo2756-05-59 02:37:00* Test Item Value Reference Range Interpretation Comments Urine Urobilinogen (test code = 99909-5) 0.2 0.2-1 [facility] Mlhduiaol7891-68-58 02:37:00* Test Item Value Reference Range Interpretation Comments Urine Bilirubin (test code = 1978-6) NEGATIVE NEGATIVE [facility] Hgutd4808-92-07 02:37:00* Test Item Value Reference Range Interpretation Comments Urine Blood (test code = 71718-8) TRACE NEGATIVE H [facility] FBK4276-51-36 02:37:00* Test Item Value Reference Range Interpretation Comments Urine WBC (test code = 5821-4) 0-5 0-5 [facility] AWZ6395-90-18 02:37:00* Test Item Value Reference Range Interpretation Comments Urine RBC (test code = 47137-3) 0-5 0-5 [facility] Gjhnfddc8670-22-48 02:37:00* Test Item Value Reference Range Interpretation Comments Urine Bacteria (test code = 12829-3) RARE NONE [facility] Ep[facility]helial Dlrlw5547-56-80 02:37:00 * Test Item Value Reference Range Interpretation Comments Urine Epithelial Cells (test code = 64618-0) FEW NONE [facility] Znrsv3224-02-68 02:37:00* Test Item Value Reference Range Interpretation Comments Urine Color (test code = 5778-6) COLORLESS YELLOW [facility] Hartsqv6702-49-08 02:37:00* Test Item Value Reference Range Interpretation Comments Urine Clarity (test code = 23619-9) CLEAR CLEAR [facility] Specific Uahbbsm7620-83-49 02:37:00 * Test Item Value Reference Range Interpretation Comments Urine Specific [place] (test code = 5811-5) 1.005 1.010-1.02 5 L [facility] pZ5939-39-80 02:37:00* Test Item Value Reference Range Interpretation Comments Urine pH (test code = 64041-5) 7 5-7 [facility] Leukocyte Osmpivmx7537-81-84 02:37:00* Test Item Value Reference Range Interpretation Comments Urine Leukocyte Esterase (test code = 5799-2) NEGATIVE NEGATIVE [facility] Acdcuoz5571-35-02 02:37:00* Test Item Value Reference Range Interpretation Comments Urine Nitrite (test code = 20490-6) NEGATIVE NEGATIVE [facility] Apysnqx0486-84-19 02:37:00* Test Item Value Reference Range Interpretation Comments Urine Protein (test code = 5804-0) NEGATIVE NEGATIVE [facility] Glucose (UA)2018-04-03 02:37:00* Test Item Value Reference Range Interpretation Comments Urine Glucose (UA) (test code = 2349-9) NEGATIVE NEGATIVE [facility] Xtmlrjz4247-17-52 02:37:00* Test Item Value Reference Range Interpretation Comments Urine Ketones (test code = 71957-2) NEGATIVE NEGATIVE [facility] Gbgjfebwpkhe0148-66-57 02:37:00* Test Item Value Reference Range Interpretation Comments Urine Urobilinogen (test code = 50333-9) 0.2 0.2-1 [facility] Wggbkcvwe1964-49-20 02:37:00* Test Item Value Reference Range Interpretation Comments Urine Bilirubin (test code = 1978-6) NEGATIVE NEGATIVE [facility] Pptmt5721-37-85 02:37:00* Test Item Value Reference Range Interpretation Comments Urine Blood (test code = 15990-4) TRACE NEGATIVE H [facility] DEC1032-18-90 02:37:00* Test Item Value Reference Range Interpretation Comments Urine WBC (test code = 5821-4) 0-5 0-5 [facility] EWX1442-48-43 02:37:00* Test Item Value Reference Range Interpretation Comments Urine RBC (test code = 27737-1) 0-5 0-5 [facility] Ymbeaiqs7581-03-21 02:37:00* Test Item Value Reference Range Interpretation Comments Urine Bacteria (test code = 85033-4) RARE NONE [facility] Ep[facility]helial Qevrc5254-74-84 02:37:00 * Test Item Value Reference Range Interpretation Comments Urine Epithelial Cells (test code = 44238-7) FEW NONE [facility] Hrfbn5281-04-58 02:37:00* Test Item Value Reference Range Interpretation Comments Urine Color (test code = 5778-6) COLORLESS YELLOW [facility] Gsdlnge7861-65-35 02:37:00* Test Item Value Reference Range Interpretation Comments Urine Clarity (test code = 82502-7) CLEAR CLEAR [facility] Specific Srygdiu6847-56-17 02:37:00 * Test Item Value Reference Range Interpretation Comments Urine Specific [place] (test code = 5811-5) 1.005 1.010-1.02 5 L [facility] uC0133-85-30 02:37:00* Test Item Value Reference Range Interpretation Comments Urine pH (test code = 48355-9) 7 5-7 [facility] Leukocyte Muipsysp0345-37-04 02:37:00* Test Item Value Reference Range Interpretation Comments Urine Leukocyte Esterase (test code = 5799-2) NEGATIVE NEGATIVE [facility] Nxgtpif2460-79-14 02:37:00* Test Item Value Reference Range Interpretation Comments Urine Nitrite (test code = 23213-8) NEGATIVE NEGATIVE [facility] Lsgzhkw1893-51-97 02:37:00* Test Item Value Reference Range Interpretation Comments Urine Protein (test code = 5804-0) NEGATIVE NEGATIVE [facility] Glucose (UA)2018-04-03 02:37:00* Test Item Value Reference Range Interpretation Comments Urine Glucose (UA) (test code = 2349-9) NEGATIVE NEGATIVE [facility] Pcxcfyv9502-96-16 02:37:00* Test Item Value Reference Range Interpretation Comments Urine Ketones (test code = 31280-4) NEGATIVE NEGATIVE [facility] Srrwbxxjeula4694-30-39 02:37:00* Test Item Value Reference Range Interpretation Comments Urine Urobilinogen (test code = 85572-0) 0.2 0.2-1 [facility] Cnozgrbpv4562-07-84 02:37:00* Test Item Value Reference Range Interpretation Comments Urine Bilirubin (test code = 1978-6) NEGATIVE NEGATIVE [facility] Tsjej8800-99-37 02:37:00* Test Item Value Reference Range Interpretation Comments Urine Blood (test code = 96791-5) TRACE NEGATIVE H [facility] VDU2554-72-48 02:37:00* Test Item Value Reference Range Interpretation Comments Urine WBC (test code = 5821-4) 0-5 0-5 [facility] MAL2468-23-45 02:37:00* Test Item Value Reference Range Interpretation Comments Urine RBC (test code = 25381-0) 0-5 0-5 [facility] Smwvgdib3347-54-72 02:37:00* Test Item Value Reference Range Interpretation Comments Urine Bacteria (test code = 24993-0) RARE NONE [facility] Ep[facility]helial Zzlrp3013-98-30 02:37:00 * Test Item Value Reference Range Interpretation Comments Urine Epithelial Cells (test code = 89940-5) FEW NONE [facility] Dhlbo8441-26-32 02:30:00* Test Item Value Reference Range Interpretation Comments White Blood Count (test code = 6690-2) 6.05 4.8-10.8 [facility] Rcigo1653-18-27 02:30:00* Test Item Value Reference Range Interpretation Comments Red Blood Count (test code = 789-8) 4.43 3.6-5.1 [facility]2018-09-11 02:30:00* Test Item Value Reference Range Interpretation Comments Hemoglobin (test code = 16709-2) 11.5 12.0-16.0 L [facility]ematocrit2018-09-11 02:30:00* Test Item Value Reference Range Interpretation Comments Hematocrit (test code = 4544-3) 38.3 34.2-44.1 [facility] Corpuscular Qqhfxr9129-36-89 02:30:00* Test Item Value Reference Range Interpretation Comments Mean Corpuscular Volume (test code = 787-2) 86.5 81-99 [facility] Corpuscular Rrulpnheax1380-33-37 02:30:00* Test Item Value Reference Range Interpretation Comments Mean Corpuscular Hemoglobin (test code = 785-6) 26.0 28-32 L [facility] Corp[facility] Hemoglobin Concent 2018-04-03 02:30:00* Test Item Value Reference Range Interpretation Comments Mean Corpuscular Hemoglobin Concent (test code = 786-4) 30.0 31-35 L [facility] Distribution Uacmw1755-59-59 02:30:00* Test Item Value Reference Range Interpretation Comments Red Cell Distribution Width (test code = 17191-2) 15.9 11.7 -14.4 H [facility] Prgup2674-83-81 02:30:00* Test Item Value Reference Range Interpretation Comments Platelet Count (test code = 777-3) 175 140-360 [facility] (%) (Auto)2018-04-03 02:30:00 * Test Item Value Reference Range Interpretation Comments Neutrophils (%) (Auto) (test code = 04869-6) 69.7 38.7-80.0 [facility] (%) (Auto)2018-04-03 02:30:00 * Test Item Value Reference Range Interpretation Comments Lymphocytes (%) (Auto) (test code = 736-9) 18.5 18.0-39.1 [facility] (%) (Auto)2018-04-03 02:30:00* Test Item Value Reference Range Interpretation Comments Monocytes (%) (Auto) (test code = 5905-5) 6.8 4.4-11.3 [facility] (%) (Auto)2018-04-03 02:30:00 * Test Item Value Reference Range Interpretation Comments Eosinophils (%) (Auto) (test code = 713-8) 3.3 0.0-6.0 [facility] (%) (Auto)2018-04-03 02:30:00* Test Item Value Reference Range Interpretation Comments Basophils (%) (Auto) (test code = 706-2) 1.0 0.0-1.0 [facility]ULOC[facility]TES %2018-04-03 02:30:00* Test Item Value Reference Range Interpretation Comments IM GRANULOCYTES % (test code = IM GRANULOCYTES %) 0.7 0.0- 1.0 [facility] # (Auto)2018-04-03 02:30:00* Test Item Value Reference Range Interpretation Comments Neutrophils # (Auto) (test code = 751-8) 4.2 2.1-6.9 [facility] # (Auto)2018-04-03 02:30:00* Test Item Value Reference Range Interpretation Comments Lymphocytes # (Auto) (test code = 36844-7) 1.1 1.0-3.2 [facility] # (Auto)2018-04-03 02:30:00* Test Item Value Reference Range Interpretation Comments Monocytes # (Auto) (test code = 742-7) 0.4 0.2-0.8 [facility] # (Auto)2018-04-03 02:30:00* Test Item Value Reference Range Interpretation Comments Eosinophils # (Auto) (test code = 711-2) 0.2 0.0-0.4 [facility] # (Auto)2018-04-03 02:30:00* Test Item Value Reference Range Interpretation Comments Basophils # (Auto) (test code = 704-7) 0.1 0.0-0.1 [facility] Immature Granulocyte (auto 2018-04-03 02:30:00* Test Item Value Reference Range Interpretation Comments Absolute Immature Granulocyte (auto (joseph t code = Absolute Immature Granulocyte (auto) 0.04 0-0.1 [facility])2018-04-03 02:16:00 [facility] [address] [place] [address] Patient Name: KALYANI TALAVERA MR #: [id number] : 1955 Age/Sex: 63/F Req #: [id number] Adm Physician: Ordered by: ROBERT OLIVIA MD Report #: [id number] Location: ER Room/Bed: Procedure: [id number] DX/CHEST SINGLE (PORTABLE) Ex am Date: Exam [...] 04/03/18216 COPY TO: ROBERT OLIVIA MD Bedside Yrquvuj1706-61-38 11:36:00* Test Item Value Reference Range Interpretation Comments Bedside Glucose (test code = 04486-3) 348 70-120 H Meter ID: [id number] [facility] ArlingtonCreatine Kinase MB 2018-02-05 06:30:00* Test Item Value Reference Range Interpretation Comments Creatine Kinase MB (test code = 35698-9) 1.40 0-5.0 [facility] ArlingtonTroponin L2332-36-13 06:30:00* Test Item Value Reference Range Interpretation Comments Troponin I (test code = JAY7199) 0.007 0-0.300 [facility] Arlington[facility] Kkdvvr7147-94-73 06:23:00* Test Item Value Reference Range Interpretation Comments Creatine Kinase (test code = 2157-6) 53 29-168 [facility]iglycerides Itjzj3591-77-43 06:10:00* Test Item Value Reference Range Interpretation Comments Triglycerides Level (test code = 2571-8) 159 0-149 H [facility] Ruosq4104-10-87 06:10:00* Test Item Value Reference Range Interpretation Comments Cholesterol Level (test code = 2093-3) 180 0-199 Less than 200 mg/dL Low Dqug469 - 239 mg/dL Borderline Ahek697 m g/dl and greater High Risk [facility] Zirzocfznbn7324-21-76 06:10:00* Test Item Value Reference Range Interpretation Comments LDL Cholesterol (test code = 2089-1) 118 60-130 [facility] Pvqpthxqrrf4023-60-67 06:10:00* Test Item Value Reference Range Interpretation Comments HDL Cholesterol (test code = 2085-9) 30 40-60 L [facility]/HDL Dbfuw9482-13-86 06:10:00 * Test Item Value Reference Range Interpretation Comments Cholesterol/HDL Ratio (test code = 9830-1) 6.0 3.0-3.6 H [facility] Wfxqj6051-57-86 06:10:00* Test Item Value Reference Range Interpretation Comments Triglycerides Level (test code = 2571-8) 159 0-149 H [facility] ArlingtonCh[facility] Qucbr1154-13-75 06:10:00* Test Item Value Reference Range Interpretation Comments Cholesterol Level (test code = 2093-3) 180 0-199 Less than 200 mg/dL Low Qyqr142 - 239 mg/dL Borderline Xiuw525 m g/dl and greater High Risk [facility] ArlingtonLDL Rgzacaosesk3033-23-99 06:10:00* Test Item Value Reference Range Interpretation Comments LDL Cholesterol (test code = 2089-1) 118 60-130 [facility]HDL Tpncqydjiia2740-08-28 06:10:00* Test Item Value Reference Range Interpretation Comments HDL Cholesterol (test code = 2085-9) 30 40-60 L [facility]/HDL Tepxx1515-22-96 06:10:00 * Test Item Value Reference Range Interpretation Comments Cholesterol/HDL Ratio (test code = 9830-1) 6.0 3.0-3.6 H [facility]ides Uklpj3451-39-41 06:10:00* Test Item Value Reference Range Interpretation Comments Triglycerides Level (test code = 2571-8) 159 0-149 H [facility] ArlingtonCh[facility] Blajn1261-85-00 06:10:00* Test Item Value Reference Range Interpretation Comments Cholesterol Level (test code = 2093-3) 180 0-199 Less than 200 mg/dL Low Akit737 - 239 mg/dL Borderline Nvaj876 m g/dl and greater High Risk [facility]LDL Gvhmcshossw0219-64-27 06:10:00* Test Item Value Reference Range Interpretation Comments LDL Cholesterol (test code = 2089-1) 118 60-130 [facility] Dndwmgblkzf9567-05-63 06:10:00* Test Item Value Reference Range Interpretation Comments HDL Cholesterol (test code = 2085-9) 30 40-60 L [facility]/HDL Cpojr6294-25-10 06:10:00 * Test Item Value Reference Range Interpretation Comments Cholesterol/HDL Ratio (test code = 9830-1) 6.0 3.0-3.6 H [facility] Shmhn8234-84-72 06:10:00* Test Item Value Reference Range Interpretation Comments Triglycerides Level (test code = 2571-8) 159 0-149 H [facility] Arlington[facility] Nhmbx5382-08-48 06:10:00* Test Item Value Reference Range Interpretation Comments Cholesterol Level (test code = 2093-3) 180 0-199 Less than 200 mg/dL Low Przy072 - 239 mg/dL Borderline Wxay434 m g/dl and greater High Risk [facility] Dgppvrmqwqk1751-51-69 06:10:00* Test Item Value Reference Range Interpretation Comments LDL Cholesterol (test code = 2089-1) 118 60-130 [facility] Ipdbqsgapjn0073-70-64 06:10:00* Test Item Value Reference Range Interpretation Comments HDL Cholesterol (test code = 2085-9) 30 40-60 L [facility]HDL Ssqcf6088-94-31 06:10:00 * Test Item Value Reference Range Interpretation Comments Cholesterol/HDL Ratio (test code = 9830-1) 6.0 3.0-3.6 H [facility] Qivxr2975-36-31 06:10:00* Test Item Value Reference Range Interpretation Comments Triglycerides Level (test code = 2571-8) 159 0-149 H [facility] Gqkar2662-44-71 06:10:00* Test Item Value Reference Range Interpretation Comments Cholesterol Level (test code = 2093-3) 180 0-199 Less than 200 mg/dL Low Mzou260 - 239 mg/dL Borderline Vjlp707 m g/dl and greater High Risk [facility]LDL Engqlxgcleh6032-31-19 06:10:00* Test Item Value Reference Range Interpretation Comments LDL Cholesterol (test code = 2089-1) 118 60-130 [facility] ArlingtonHDL Tlvzecmnocs4137-71-99 06:10:00* Test Item Value Reference Range Interpretation Comments HDL Cholesterol (test code = 2085-9) 30 40-60 L [facility]HDL Obdky7134-92-80 06:10:00 * Test Item Value Reference Range Interpretation Comments Cholesterol/HDL Ratio (test code = 9830-1) 6.0 3.0-3.6 H [facility])2018-02-04 11:35:00 [facility] [address] [place] [address] Patient Name: KALYANI TALAVERA MR #: [id number] : 1955 Age/Sex: 62/F Req #: [id number] Adm Physician: Ordered by: ROBERT OLIVIA MD Report #: [id number] Location: ER Room/Bed: Procedure: [id number] DX/CHEST SINGLE (PORTABLE) Ex am Date: 02/04/18 [...] COPY TO: ROBERT OLIVIA MD White Blood Ftqzi6350-81-68 11:19:00* Test Item Value Reference Range Interpretation Comments White Blood Count (test code = 6690-2) 6.94 4.8-10.8 [facility] Xitdp5277-29-66 11:19:00* Test Item Value Reference Range Interpretation Comments Red Blood Count (test code = 789-8) 4.49 3.6-5.1 [facility]2018-07-15 11:19:00* Test Item Value Reference Range Interpretation Comments Hemoglobin (test code = 58283-2) 11.3 12.0-16.0 L [facility]ematocrit2018-07-15 11:19:00* Test Item Value Reference Range Interpretation Comments Hematocrit (test code = 4544-3) 37.6 34.2-44.1 [facility] Corpuscular Bhemuh9612-57-39 11:19:00* Test Item Value Reference Range Interpretation Comments Mean Corpuscular Volume (test code = 787-2) 83.7 81-99 [facility] Corpuscular Yeegcsnkmw5270-11-64 11:19:00* Test Item Value Reference Range Interpretation Comments Mean Corpuscular Hemoglobin (test code = 785-6) 25.2 28-32 L [facility] Corpuscular Hemoglobin Concent 2018-02-04 11:19:00* Test Item Value Reference Range Interpretation Comments Mean Corpuscular Hemoglobin Concent (test code = 786-4) 30.1 31-35 L [facility] Distribution Qwcqk5074-62-52 11:19:00* Test Item Value Reference Range Interpretation Comments Red Cell Distribution Width (test code = 92038-1) 15.7 11.7 -14.4 H [facility] Xfxtk0551-11-59 11:19:00* Test Item Value Reference Range Interpretation Comments Platelet Count (test code = 777-3) 217 140-360 [facility]Ne[facility]rophils (%) (Auto)2018-02-04 11:19:00 * Test Item Value Reference Range Interpretation Comments Neutrophils (%) (Auto) (test code = 90040-3) 70.5 38.7-80.0 [facility] (%) (Auto)2018-02-04 11:19:00 * Test Item Value Reference Range Interpretation Comments Lymphocytes (%) (Auto) (test code = 736-9) 19.0 18.0-39.1 [facility] (%) (Auto)2018-02-04 11:19:00* Test Item Value Reference Range Interpretation Comments Monocytes (%) (Auto) (test code = 5905-5) 5.3 4.4-11.3 [facility] (%) (Auto)2018-02-04 11:19:00 * Test Item Value Reference Range Interpretation Comments Eosinophils (%) (Auto) (test code = 713-8) 3.2 0.0-6.0 [facility] (%) (Auto)2018-02-04 11:19:00* Test Item Value Reference Range Interpretation Comments Basophils (%) (Auto) (test code = 706-2) 1.0 0.0-1.0 [facility]IM [facility]ANULOCYTES %2018-02-04 11:19:00* Test Item Value Reference Range Interpretation Comments IM GRANULOCYTES % (test code = IM GRANULOCYTES %) 1.0 0.0- 1.0 [facility]Neutrophils # (Auto)2018-02-04 11:19:00* Test Item Value Reference Range Interpretation Comments Neutrophils # (Auto) (test code = 751-8) 4.9 2.1-6.9 [facility]Lymph[facility] # (Auto)2018-02-04 11:19:00* Test Item Value Reference Range Interpretation Comments Lymphocytes # (Auto) (test code = 92408-4) 1.3 1.0-3.2 [facility] # (Auto)2018-02-04 11:19:00* Test Item Value Reference Range Interpretation Comments Monocytes # (Auto) (test code = 742-7) 0.4 0.2-0.8 [facility] # (Auto)2018-02-04 11:19:00* Test Item Value Reference Range Interpretation Comments Eosinophils # (Auto) (test code = 711-2) 0.2 0.0-0.4 [facility] # (Auto)2018-02-04 11:19:00* Test Item Value Reference Range Interpretation Comments Basophils # (Auto) (test code = 704-7) 0.1 0.0-0.1 [facility] ArlingtonAbsolute Immature Granulocyte (auto 2018-02-04 11:19:00* Test Item Value Reference Range Interpretation Comments Absolute Immature Granulocyte (auto (joseph t code = Absolute Immature Granulocyte (auto) 0.07 0-0.1 [facility] Vjggc9918-72-13 11:17:00* Test Item Value Reference Range Interpretation Comments Urine Color (test code = 5778-6) YELLOW YELLOW [facility] Rirosef4700-05-27 11:17:00* Test Item Value Reference Range Interpretation Comments Urine Clarity (test code = 84473-8) CLEAR CLEAR [facility] Specific Fxcivtc6740-35-47 11:17:00 * Test Item Value Reference Range Interpretation Comments Urine Specific [place] (test code = 5811-5) 1.010 1.010-1.02 5 [facility] xJ6123-53-17 11:17:00* Test Item Value Reference Range Interpretation Comments Urine pH (test code = 24237-4) 6 5-7 [facility] Leukocyte Gpojujrc0157-10-88 11:17:00* Test Item Value Reference Range Interpretation Comments Urine Leukocyte Esterase (test code = 5799-2) [facility]GATIVE [facility]GATIVE [facility] Zprhfhc3480-47-58 11:17:00* Test Item Value Reference Range Interpretation Comments Urine Nitrite (test code = 45193-8) NEGATIVE [facility]GATIVE [facility] Lfdfzbv1114-15-46 11:17:00* Test Item Value Reference Range Interpretation Comments Urine Protein (test code = 5804-0) [facility]GATIVE [facility]GATIVE [facility] Glucose (UA)2018-02-04 11:17:00* Test Item Value Reference Range Interpretation Comments Urine Glucose (UA) (test code = 2349-9) [facility]GATIVE [facility]GATIVE [facility] Ogwbiwp7472-48-53 11:17:00* Test Item Value Reference Range Interpretation Comments Urine Ketones (test code = 56841-7) NEGATIVE NEGATIVE [facility] Opiates Wgqket1251-26-99 11:17:00* Test Item Value Reference Range Interpretation Comments Urine Opiates Screen (test code = 36562-6) NEGATIVE NEGATIVE [facility] Barbiturates Egfjds1246-27-56 11:17:00* Test Item Value Reference Range Interpretation Comments Urine Barbiturates Screen (test code = 823815609) NEGATIVE NEGA TIVE [facility] Phencyclidine Gvimjx4040-70-81 11:17:00* Test Item Value Reference Range Interpretation Comments Urine Phencyclidine Screen (test code = 14033-9) NEGATIVE NEGAT MARY [facility] Amphetamines Pmqtar8090-83-09 11:17:00* Test Item Value Reference Range Interpretation Comments Urine Amphetamines Screen (test code = 45336-3) NEGATIVE NEGATI VE [facility] Methamphetamines Tffuuu2096-07-77 11:17:00* Test Item Value Reference Range Interpretation Comments Urine Methamphetamines Screen (test code = Urine Metha mphetamines Screen) NEGATIVE NEGATIVE [facility] Benzodiazepines Anxlbj7717-03-44 11:17:00* Test Item Value Reference Range Interpretation Comments Urine Benzodiazepines Screen (test code = 43127-9) NEGATIVE NEG ATIVE [facility] Cocaine Teszzt6111-01-37 11:17:00* Test Item Value Reference Range Interpretation Comments Urine Cocaine Screen (test code = 3398-5) NEGATIVE NEGATIVE [facility] Cannabinoids Unjjge7144-65-61 11:17:00* Test Item Value Reference Range Interpretation Comments Urine Cannabinoids Screen (test code = 12385-1) NEGATIVE NEGATI VE THESE RESULTS ARE FOR MEDICAL TREATMENT ONLYTHIS REPORT CONTAINS UNCONFIR MED SCREENING RESULTS*POSITIVE RESULTS WILL BE CONFIRMED BY REFERENCE LAB UPON R EQUEST CUT-OFFDRUG CLASS CONCENTRATION ng/mLAmphetamines 1000Methamphetamines 1000Cocaine 300Opiate 300Phencyc lidine 25Cannabinoid 50Barbiturates 300Benzodiazepine 300Methadone 300[facility] Pzgzmzxfcihu3626-18-84 11:17:00* Test Item Value Reference Range Interpretation Comments Urine Urobilinogen (test code = 57797-2) 0.2 0.2-1 [facility] Rxmoqwrct2016-28-33 11:17:00* Test Item Value Reference Range Interpretation Comments Urine Bilirubin (test code = 1978-6) NEGATIVE NEGATIVE [facility] Nlknk2189-13-74 11:17:00* Test Item Value Reference Range Interpretation Comments Urine Blood (test code = 23810-3) NEGATIVE NEGATIVE [facility] ZEW7674-52-07 11:17:00* Test Item Value Reference Range Interpretation Comments Urine WBC (test code = 5821-4) 0-5 0-5 [facility] LDS0158-77-12 11:17:00* Test Item Value Reference Range Interpretation Comments Urine RBC (test code = 46874-9) NONE 0-5 [facility] Epnpfyrh4939-31-61 11:17:00* Test Item Value Reference Range Interpretation Comments Urine Bacteria (test code = 24362-0) FEW NONE [facility] Epithelial Smjhw8809-07-43 11:17:00 * Test Item Value Reference Range Interpretation Comments Urine Epithelial Cells (test code = 84185-0) MODERATE NONE [facility] Hzekm8284-39-68 11:17:00* Test Item Value Reference Range Interpretation Comments Urine Mucus (test code = 8247-9) FEW RARE H [facility] Opiates Aawghv4171-68-12 11:17:00* Test Item Value Reference Range Interpretation Comments Urine Opiates Screen (test code = 71031-6) NEGATIVE NEGATIVE [facility] Barbiturates Lraeto7964-55-96 11:17:00* Test Item Value Reference Range Interpretation Comments Urine Barbiturates Screen (test code = 608608097) NEGATIVE NEGA TIVE [facility] Phencyclidine Zuhdjd6204-79-30 11:17:00* Test Item Value Reference Range Interpretation Comments Urine Phencyclidine Screen (test code = 30787-9) NEGATIVE NEGAT MARY [facility] Amphetamines Azildw1550-42-01 11:17:00* Test Item Value Reference Range Interpretation Comments Urine Amphetamines Screen (test code = 93404-7) NEGATIVE NEGATI VE [facility] Methamphetamines Jzrrqu7342-44-60 11:17:00* Test Item Value Reference Range Interpretation Comments Urine Methamphetamines Screen (test code = Urine Metha mphetamines Screen) NEGATIVE NEGATIVE [facility] Benzodiazepines Ybwhyi4760-08-52 11:17:00* Test Item Value Reference Range Interpretation Comments Urine Benzodiazepines Screen (test code = 05386-4) NEGATIVE NEG ATIVE [facility] Cocaine Udqapj3603-10-20 11:17:00* Test Item Value Reference Range Interpretation Comments Urine Cocaine Screen (test code = 3398-5) NEGATIVE NEGATIVE [facility] Cannabinoids Zuolfi5615-82-60 11:17:00* Test Item Value Reference Range Interpretation Comments Urine Cannabinoids Screen (test code = 65133-1) NEGATIVE NEGATI VE THESE RESULTS ARE FOR MEDICAL TREATMENT ONLYTHIS REPORT CONTAINS UNCONFIR MED SCREENING RESULTS*POSITIVE RESULTS WILL BE CONFIRMED BY REFERENCE LAB UPON R EQUEST CUT-OFFDRUG CLASS CONCENTRATION ng/mLAmphetamines 1000Methamphetamines 1000Cocaine 300Opiate 300Phencyc lidine 25Cannabinoid 50Barbiturates 300Benzodiazepine 300Methadone 300[facility] Jqhbj5226-57-00 11:17:00* Test Item Value Reference Range Interpretation Comments Urine Mucus (test code = 8247-9) FEW RARE H [facility] Opiates Durttd3648-59-01 11:17:00* Test Item Value Reference Range Interpretation Comments Urine Opiates Screen (test code = 84302-9) NEGATIVE NEGATIVE [facility] Barbiturates Sqiaij4088-14-29 11:17:00* Test Item Value Reference Range Interpretation Comments Urine Barbiturates Screen (test code = 906863183) NEGATIVE NEGA TIVE [facility] Phencyclidine Yhzdkk3064-66-03 11:17:00* Test Item Value Reference Range Interpretation Comments Urine Phencyclidine Screen (test code = 47556-2) NEGATIVE NEGAT MARY [facility] Amphetamines Gfamxt6483-48-52 11:17:00* Test Item Value Reference Range Interpretation Comments Urine Amphetamines Screen (test code = 01499-3) NEGATIVE NEGATI VE [facility] Methamphetamines Lebnpv2081-96-46 11:17:00* Test Item Value Reference Range Interpretation Comments Urine Methamphetamines Screen (test code = Urine Metha mphetamines Screen) NEGATIVE NEGATIVE [facility] Benzodiazepines Lbuhev2990-98-81 11:17:00* Test Item Value Reference Range Interpretation Comments Urine Benzodiazepines Screen (test code = 13862-7) NEGATIVE NEG ATIVE [facility] Cocaine Svehbd7320-53-36 11:17:00* Test Item Value Reference Range Interpretation Comments Urine Cocaine Screen (test code = 3398-5) NEGATIVE NEGATIVE [facility] Cannabinoids Wupbgd6337-84-24 11:17:00* Test Item Value Reference Range Interpretation Comments Urine Cannabinoids Screen (test code = 43388-3) NEGATIVE NEGATI VE THESE RESULTS ARE FOR MEDICAL TREATMENT ONLYTHIS REPORT CONTAINS UNCONFIR MED SCREENING RESULTS*POSITIVE RESULTS WILL BE CONFIRMED BY REFERENCE LAB UPON R EQUEST CUT-OFFDRUG CLASS CONCENTRATION ng/mLAmphetamines 1000Methamphetamines 1000Cocaine 300Opiate 300Phencyc lidine 25Cannabinoid 50Barbiturates 300Benzodiazepine 300Methadone 300[facility] Yfvar6069-64-10 11:17:00* Test Item Value Reference Range Interpretation Comments Urine Mucus (test code = 8247-9) FEW RARE H [facility] Opiates Cjaqug8142-26-90 11:17:00* Test Item Value Reference Range Interpretation Comments Urine Opiates Screen (test code = 50692-5) NEGATIVE NEGATIVE [facility] Barbiturates Lfmpkq8162-13-89 11:17:00* Test Item Value Reference Range Interpretation Comments Urine Barbiturates Screen (test code = 048064887) NEGATIVE NEGA TIVE [facility] Phencyclidine Pdkqbp7050-24-30 11:17:00* Test Item Value Reference Range Interpretation Comments Urine Phencyclidine Screen (test code = 58673-1) NEGATIVE NEGAT MARY [facility] Amphetamines Oypadr6117-03-45 11:17:00* Test Item Value Reference Range Interpretation Comments Urine Amphetamines Screen (test code = 59044-1) NEGATIVE NEGATI VE [facility] Methamphetamines Bnaoog1773-12-64 11:17:00* Test Item Value Reference Range Interpretation Comments Urine Methamphetamines Screen (test code = Urine Metha mphetamines Screen) NEGATIVE NEGATIVE [facility] Benzodiazepines Twiwuw6508-05-72 11:17:00* Test Item Value Reference Range Interpretation Comments Urine Benzodiazepines Screen (test code = 19384-0) NEGATIVE NEG ATIVE [facility] Cocaine Suqrdf8697-16-65 11:17:00* Test Item Value Reference Range Interpretation Comments Urine Cocaine Screen (test code = 3398-5) NEGATIVE NEGATIVE [facility] Cannabinoids Gducvd0130-34-04 11:17:00* Test Item Value Reference Range Interpretation Comments Urine Cannabinoids Screen (test code = 62638-2) NEGATIVE NEGATI VE THESE RESULTS ARE FOR MEDICAL TREATMENT ONLYTHIS REPORT CONTAINS UNCONFIR MED SCREENING RESULTS*POSITIVE RESULTS WILL BE CONFIRMED BY REFERENCE LAB UPON R EQUEST CUT-OFFDRUG CLASS CONCENTRATION ng/mLAmphetamines 1000Methamphetamines 1000Cocaine 300Opiate 300Phencyc lidine 25Cannabinoid 50Barbiturates 300Benzodiazepine 300Methadone 300[facility] Fmxbr8105-76-80 11:17:00* Test Item Value Reference Range Interpretation Comments Urine Mucus (test code = 8247-9) FEW RARE H [facility] Opiates Hzayxb7850-67-13 11:17:00* Test Item Value Reference Range Interpretation Comments Urine Opiates Screen (test code = 93661-5) NEGATIVE NEGATIVE [facility] Barbiturates Gupxae4406-68-71 11:17:00* Test Item Value Reference Range Interpretation Comments Urine Barbiturates Screen (test code = 467175186) NEGATIVE NEGA TIVE [facility] Phencyclidine Xtwhgd1145-95-93 11:17:00* Test Item Value Reference Range Interpretation Comments Urine Phencyclidine Screen (test code = 37273-2) NEGATIVE NEGAT MARY [facility] Amphetamines Rforvk9011-11-95 11:17:00* Test Item Value Reference Range Interpretation Comments Urine Amphetamines Screen (test code = 62377-3) NEGATIVE NEGATI VE [facility] Methamphetamines Vfgkbw6625-57-57 11:17:00* Test Item Value Reference Range Interpretation Comments Urine Methamphetamines Screen (test code = Urine Metha mphetamines Screen) NEGATIVE NEGATIVE [facility] Benzodiazepines Kgubba5941-39-98 11:17:00* Test Item Value Reference Range Interpretation Comments Urine Benzodiazepines Screen (test code = 93392-9) NEGATIVE NEG ATIVE [facility] Cocaine Yvgvrm0554-52-58 11:17:00* Test Item Value Reference Range Interpretation Comments Urine Cocaine Screen (test code = 3398-5) NEGATIVE NEGATIVE [facility] Cannabinoids Ezpddn9549-01-94 11:17:00* Test Item Value Reference Range Interpretation Comments Urine Cannabinoids Screen (test code = 40059-6) NEGATIVE NEGATI VE THESE RESULTS ARE FOR MEDICAL TREATMENT ONLYTHIS REPORT CONTAINS UNCONFIR MED SCREENING RESULTS*POSITIVE RESULTS WILL BE CONFIRMED BY REFERENCE LAB UPON R EQUEST CUT-OFFDRUG CLASS CONCENTRATION ng/mLAmphetamines 1000Methamphetamines 1000Cocaine 300Opiate 300Phencyc lidine 25Cannabinoid 50Barbiturates 300Benzodiazepine 300Methadone 300[facility] Itgej7368-05-71 11:17:00* Test Item Value Reference Range Interpretation Comments Urine Mucus (test code = 8247-9) FEW RARE H [facility] Natriuretic Nmifsyx0904-23-47 11:08:00* Test Item Value Reference Range Interpretation Comments B-Type Natriuretic Peptide (test code = 12930-4) 29.0 0-[address] [facility] Czjsh6688-94-73 11:03:00* Test Item Value Reference Range Interpretation Comments Sodium Level (test code = 2951-2) 140 136-145 [facility] Bctor5217-60-74 11:03:00* Test Item Value Reference Range Interpretation Comments Potassium Level (test code = 2823-3) 3.7 3.5-5.1 [facility] Arlington[facility]loride Uohgj5236-08-82 11:03:00* Test Item Value Reference Range Interpretation Comments Chloride Level (test code = 2075-0) 100 98-107 [facility] Arlington[facility] Dioxide Xlxzx7675-01-02 11:03:00* Test Item Value Reference Range Interpretation Comments Carbon Dioxide Level (test code = 2028-9) 28 22-29 [facility] Arlington[facility]ion Mcd2383-76-17 11:03:00* Test Item Value Reference Range Interpretation Comments Anion Gap (test code = 38922-9) 15.7 8-16 [facility] Arlington[facility] Urea Vxrwlssp7641-20-59 11:03:00* Test Item Value Reference Range Interpretation Comments Blood Urea Nitrogen (test code = 3094-0) 39 7-26 H [facility] ArlingtonCreatinine2018-07-15 11:03:00* Test Item Value Reference Range Interpretation Comments Creatinine (test code = 2160-0) 1.29 0.57-1.11 H [facility] Arlington[facility]/Creatinine Tqqza7704-72-69 11:03:00* Test Item Value Reference Range Interpretation Comments BUN/Creatinine Ratio (test code = 3097-3) 30 6-25 H [facility] ArlingtonEstimat Glomerular Filtration Rate 2018-02-04 11:03:00* Test Item Value Reference Range Interpretation Comments Estimat Glomerular Filtration Rate (test code = 11656-2) 42 >60 L Ranges were taken from the National Kidney Disease Education Program and the [facility] Kidney Foundation literature.Reference ranges:60 or greater: Yerdbx17-36 ( for 3 consecutive months): Chronic kidney disease 15 or less: Kidney failureCH[facility] HospitalGlucose Uvelh1619-39-74 11:03:00* Test Item Value Reference Range Interpretation Comments Glucose Level (test code = UCO9862) 155 74-118 H [facility] ArlingtonCalcium Mxpsp8852-67-42 11:03:00* Test Item Value Reference Range Interpretation Comments Calcium Level (test code = 72224-3) 9.0 8.4-10.2 [facility] ArlingtonMagnesium Qngjc7663-38-26 11:03:00* Test Item Value Reference Range Interpretation Comments Magnesium Level (test code = 90486-1) 1.7 1.3-2.1 [facility] Arlington[facility] Gijlewvxb0600-70-44 11:03:00* Test Item Value Reference Range Interpretation Comments Total Bilirubin (test code = 1975-2) 0.4 0.2-1.2 [facility] Arlington[facility]artate Amino Transf (AST/SGOT) 2018-02-04 11:03:00* Test Item Value Reference Range Interpretation Comments Aspartate Amino Transf (AST/SGOT) (test code = Aspartate Amino Transf (AST/SGOT)) 15 5-34 [facility] Arlington[facility] Aminotransferase (ALT/SGPT) 2018-02-04 11:03:00* Test Item Value Reference Range Interpretation Comments Alanine Aminotransferase (ALT/SGPT) (test code = 1742-6) 20 0-55 [facility] Arlington[facility] Bfzesmi6429-25-97 11:03:00* Test Item Value Reference Range Interpretation Comments Total Protein (test code = 2885-2) 6.7 6.5-8.1 [facility] Arlington[facility]in2018-07-15 11:03:00* Test Item Value Reference Range Interpretation Comments Albumin (test code = 1751-7) 3.3 3.5-5.0 L [facility] Arlington[facility]obulin2018-07-15 11:03:00* Test Item Value Reference Range Interpretation Comments Globulin (test code = 68068-1) 3.4 2.3-3.5 [facility] ArlingtonAlbumin/Globulin Jgfgg8533-56-06 11:03:00 * Test Item Value Reference Range Interpretation Comments Albumin/Globulin Ratio (test code = 1759-0) 1.0 0.8-2.0 [facility] Arlington[facility]kaline Kblsrkezbrg8376-99-15 11:03:00* Test Item Value Reference Range Interpretation Comments Alkaline Phosphatase (test code = 6768-6) 63 40-150 [facility] ArlingtonAmylase Tkgkv1176-48-48 11:03:00* Test Item Value Reference Range Interpretation Comments Amylase Level (test code = 1798-8) 30 25-125 [facility] ArlingtonLipase2018-07-15 11:03:00* Test Item Value Reference Range Interpretation Comments Lipase (test code = 3040-3) 16 8-78 [facility] ArlingtonMagnesium Omjtf2119-75-92 11:03:00* Test Item Value Reference Range Interpretation Comments Magnesium Level (test code = 40246-0) 1.7 1.3-2.1 [facility] ArlingtonAmylase Ruisq3926-83-42 11:03:00* Test Item Value Reference Range Interpretation Comments Amylase Level (test code = 1798-8) 30 25-125 [facility] Arlington[facility]2018-07-15 11:03:00* Test Item Value Reference Range Interpretation Comments Lipase (test code = 3040-3) [facility] Nrpsr5960-93-48 11:03:00* Test Item Value Reference Range Interpretation Comments Magnesium Level (test code = 02240-7) 1.7 1.3-2.1 [facility] ArlingtonAmylase Uheqs8522-87-16 11:03:00* Test Item Value Reference Range Interpretation Comments Amylase Level (test code = 1798-8) 30 25-125 [facility]2018-07-15 11:03:00* Test Item Value Reference Range Interpretation Comments Lipase (test code = 3040-3) [facility]2018-07-15 11:03:00* Test Item Value Reference Range Interpretation Comments Magnesium Level (test code = 78438-3) 1.7 1.3-2.1 [facility] Zhvxk5076-60-96 11:03:00* Test Item Value Reference Range Interpretation Comments Amylase Level (test code = 1798-8) 30 25-125 [facility] Arlington[facility]2018-07-15 11:03:00* Test Item Value Reference Range Interpretation Comments Lipase (test code = 3040-3) [facility]2018-07-15 11:03:00* Test Item Value Reference Range Interpretation Comments Magnesium Level (test code = 45009-6) 1.7 1.3-2.1 [facility] Arlington[facility] Oymtw0739-50-34 11:03:00* Test Item Value Reference Range Interpretation Comments Amylase Level (test code = 1798-8) 30 25-125 [facility] Arlington[facility]2018-07-15 11:03:00* Test Item Value Reference Range Interpretation Comments Lipase (test code = 3040-3) [facility] Natri[facility]tic Umxpcux8522-38-95 23:54:00* Test Item Value Reference Range Interpretation Comments B-Type Natriuretic Peptide (test code = 73805-0) 38.5 0-100 [facility] ArlingtonCreatine Kinase TH4380-08-26 23:54:00* Test Item Value Reference Range Interpretation Comments Creatine Kinase MB (test code = 03942-0) 1.10 0-5.0 [facility] ArlingtonTroponin O8682-52-52 23:54:00* Test Item Value Reference Range Interpretation Comments Troponin I (test code = ZEP7889) -0.001 0-0.300 [facility] Arlington[facility] UJM8892-60-02 23:42:00* Test Item Value Reference Range Interpretation Comments Urine WBC (test code = 5821-4) 0-5 0-5 [facility] ZPM8901-66-48 23:42:00* Test Item Value Reference Range Interpretation Comments Urine RBC (test code = 81442-6) NONE 0-5 [facility] Lljluwzj4669-41-44 23:42:00* Test Item Value Reference Range Interpretation Comments Urine Bacteria (test code = 25945-7) RARE NONE [facility] Epithelial Viwgt6606-70-02 23:42:00 * Test Item Value Reference Range Interpretation Comments Urine Epithelial Cells (test code = 95592-1) RARE NONE [facility] Exvtm9726-65-10 23:39:00* Test Item Value Reference Range Interpretation Comments Sodium Level (test code = 2951-2) 135 136-145 L [facility] ArlingtonPotassium Hoamp1727-78-29 23:39:00* Test Item Value Reference Range Interpretation Comments Potassium Level (test code = 2823-3) 4.3 3.5-5.1 [facility] ArlingtonChloride Yubey3588-82-52 23:39:00* Test Item Value Reference Range Interpretation Comments Chloride Level (test code = 2075-0) 99 98-107 [facility] ArlingtonCarbon Dioxide Gvowk6086-25-26 23:39:00* Test Item Value Reference Range Interpretation Comments Carbon Dioxide Level (test code = 2028-9) 25 22-29 [facility] ArlingtonAnion Kse6586-67-02 23:39:00* Test Item Value Reference Range Interpretation Comments Anion Gap (test code = 24934-7) 15.3 8-16 [facility] Arlington[facility] Urea Oksmqdkk7199-28-96 23:39:00* Test Item Value Reference Range Interpretation Comments Blood Urea Nitrogen (test code = 3094-0) 33 7-26 H [facility] ArlingtonCreatinine2018-07-11 23:39:00* Test Item Value Reference Range Interpretation Comments Creatinine (test code = 2160-0) 1.41 0.57-1.11 H [facility]/Creatinine Ccqeu5288-59-06 23:39:00* Test Item Value Reference Range Interpretation Comments BUN/Creatinine Ratio (test code = 3097-3) 23 6-25 [facility] ArlingtonEstimat Glomerular Filtration Rate 2018-01-31 23:39:00* Test Item Value Reference Range Interpretation Comments Estimat Glomerular Filtration Rate (test code = 11858-8) 38 >60 L Ranges were taken from the National Kidney Disease Education Program and the Jenise counts [facility] Kid[facility] literature.Reference ranges:60 or greater: Qrptws43-44 ( for 3 consecutive months): Chronic kidney disease 15 or less: Kidney failureUSMD Hospital at ArlingtonGlucose Fcxoj4522-09-46 23:39:00* Test Item Value Reference Range Interpretation Comments Glucose Level (test code = ONE4618) 622 74-118 HH Results called to Ann Rodriguez at 2338 on 01/31/18 by Andreea Olivier. [place]. [facility] ArlingtonCalcium Scjcf5165-69-07 23:39:00* Test Item Value Reference Range Interpretation Comments Calcium Level (test code = 04104-9) 9.3 8.4-10.2 [facility] ArlingtonMagnesium Oliuq6987-86-69 23:39:00* Test Item Value Reference Range Interpretation Comments Magnesium Level (test code = 21281-3) 2.0 1.3-2.1 [facility] ArlingtonTotal Ucperzlcq7320-67-62 23:39:00* Test Item Value Reference Range Interpretation Comments Total Bilirubin (test code = 1975-2) 0.3 0.2-1.2 [facility] ArlingtonAspartate Amino Transf (AST/SGOT) 2018-01-31 23:39:00* Test Item Value Reference Range Interpretation Comments Aspartate Amino Transf (AST/SGOT) (test code = Aspartate Amino Transf (AST/SGOT)) 10 5-34 [facility] ArlingtonAlanine Aminotransferase (ALT/SGPT) 2018-01-31 23:39:00* Test Item Value Reference Range Interpretation Comments Alanine Aminotransferase (ALT/SGPT) (test code = 1742-6) 18 0-55 [facility] ArlingtonTotal Rjmeakk1158-42-42 23:39:00* Test Item Value Reference Range Interpretation Comments Total Protein (test code = 2885-2) 6.7 6.5-8.1 [facility] ArlingtonAlbumin2018-07-11 23:39:00* Test Item Value Reference Range Interpretation Comments Albumin (test code = 1751-7) 3.4 3.5-5.0 L [facility] ArlingtonGlobulin2018-07-11 23:39:00* Test Item Value Reference Range Interpretation Comments Globulin (test code = 80193-7) 3.3 2.3-3.5 [facility] ArlingtonAlbum[facility]/Globulin Kqqwk9679-31-46 23:39:00 * Test Item Value Reference Range Interpretation Comments Albumin/Globulin Ratio (test code = 1759-0) 1.0 0.8-2.0 [facility] ArlingtonAlkaline Dgvkykvmwhx3101-16-35 23:39:00* Test Item Value Reference Range Interpretation Comments Alkaline Phosphatase (test code = 6768-6) 63 40-150 [facility] ArlingtonCreatine Drwlan6825-78-06 23:39:00* Test Item Value Reference Range Interpretation Comments Creatine Kinase (test code = 2157-6) 40 29-168 [facility] ArlingtonProthrombin Srlg1710-59-47 23:34:00* Test Item Value Reference Range Interpretation Comments Prothrombin Time (test code = 5902-2) 13.5 11.9-14.5 [facility] ArlingtonProthromb Time International Ratio 2018-01-31 23:34:00* Test Item Value Reference Range Interpretation Comments Prothromb Time International Ratio (test code = 6301-6) 1.11 Oral Anticoagulant Therapy INR Values:1. Low Intensity Therapy 1.5 - 2.02 . Moderate Intensity Therapy 2.0 - 3.03. High Intensity Therapy(1) 2.5 - 3. 54. High Intensity Therapy(2) 3.0 - 4.05. Panic Value INR > 5.0 [facility] Partial Thromboplast Time 2018-01-31 23:34:00* Test Item Value Reference Range Interpretation Comments Activated Partial Thromboplast Time (test code = 21243-6) 23.4 23.8-35.5 L [facility] Chomo6837-24-08 23:34:00* Test Item Value Reference Range Interpretation Comments Urine Color (test code = 5778-6) YELLOW YELLOW [facility] Jitahnr8132-12-04 23:34:00* Test Item Value Reference Range Interpretation Comments Urine Clarity (test code = 20026-8) CLEAR CLEAR [facility] Specific Pysxnoe8846-49-12 23:34:00 * Test Item Value Reference Range Interpretation Comments Urine Specific [place] (test code = 5811-5) 1.010 1.010-1.02 5 [facility] zO3776-71-58 23:34:00* Test Item Value Reference Range Interpretation Comments Urine pH (test code = 24062-4) 6 5-7 [facility] Leukocyte Ogrdylle8529-17-22 23:34:00* Test Item Value Reference Range Interpretation Comments Urine Leukocyte Esterase (test code = 5799-2) NEGATIVE NEGATIVE [facility] Adimbao1576-76-13 23:34:00* Test Item Value Reference Range Interpretation Comments Urine Nitrite (test code = 13510-0) NEGATIVE NEGATIVE [facility] Vwippjm0203-05-67 23:34:00* Test Item Value Reference Range Interpretation Comments Urine Protein (test code = 5804-0) NEGATIVE NEGATIVE [facility] Glucose (UA)2018-01-31 23:34:00* Test Item Value Reference Range Interpretation Comments Urine Glucose (UA) (test code = 2349-9) 3+ NEGATIVE H [facility] Vkpdxlv4531-35-74 23:34:00* Test Item Value Reference Range Interpretation Comments Urine Ketones (test code = 66957-0) NEGATIVE NEGATIVE [facility] Jgmiplzrtnzt6705-17-93 23:34:00* Test Item Value Reference Range Interpretation Comments Urine Urobilinogen (test code = 57044-7) 0.2 0.2-1 [facility] Bpakkchlx4364-96-75 23:34:00* Test Item Value Reference Range Interpretation Comments Urine Bilirubin (test code = 1978-6) NEGATIVE NEGATIVE [facility] Rzlgz0295-77-44 23:34:00* Test Item Value Reference Range Interpretation Comments Urine Blood (test code = 75886-1) NEGATIVE NEGATIVE [facility] ArlingtonProthrombin Gvff1801-38-07 23:34:00* Test Item Value Reference Range Interpretation Comments Prothrombin Time (test code = 5902-2) 13.5 11.9-14.5 [facility] ArlingtonProthromb Time International Ratio 2018-01-31 23:34:00* Test Item Value Reference Range Interpretation Comments Prothromb Time International Ratio (test code = 6301-6) 1.11 Oral Anticoagulant Therapy INR Values:1. Low Intensity Therapy 1.5 - 2.02 . Moderate Intensity Therapy 2.0 - 3.03. High Intensity Therapy(1) 2.5 - 3. 54. High Intensity Therapy(2) 3.0 - 4.05. Panic Value INR > 5.0 [facility] Partial Thromboplast Time 2018-01-31 23:34:00* Test Item Value Reference Range Interpretation Comments Activated Partial Thromboplast Time (test code = 05829-2) 23.4 23.8-35.5 L [facility] ArlingtonProthrombin Dbts1363-39-75 23:34:00* Test Item Value Reference Range Interpretation Comments Prothrombin Time (test code = 5902-2) 13.5 11.9-14.5 [facility] ArlingtonProthromb Time International Ratio 2018-01-31 23:34:00* Test Item Value Reference Range Interpretation Comments Prothromb Time International Ratio (test code = 6301-6) 1.11 Oral Anticoagulant Therapy INR Values:1. Low Intensity Therapy 1.5 - 2.02 . Moderate Intensity Therapy 2.0 - 3.03. High Intensity Therapy(1) 2.5 - 3. 54. High Intensity Therapy(2) 3.0 - 4.05. Panic Value INR > 5.0 [facility] Partial Thromboplast Time 2018-01-31 23:34:00* Test Item Value Reference Range Interpretation Comments Activated Partial Thromboplast Time (test code = 61485-5) 23.4 23.8-35.5 L [facility] ArlingtonProthrombin Idte4255-64-39 23:34:00* Test Item Value Reference Range Interpretation Comments Prothrombin Time (test code = 5902-2) 13.5 11.9-14.5 [facility] ArlingtonProthromb Time International Ratio 2018-01-31 23:34:00* Test Item Value Reference Range Interpretation Comments Prothromb Time International Ratio (test code = 6301-6) 1.11 Oral Anticoagulant Therapy INR Values:1. Low Intensity Therapy 1.5 - 2.02 . Moderate Intensity Therapy 2.0 - 3.03. High Intensity Therapy(1) 2.5 - 3. 54. High Intensity Therapy(2) 3.0 - 4.05. Panic Value INR > 5.0 [facility] Partial Thromboplast Time 2018-01-31 23:34:00* Test Item Value Reference Range Interpretation Comments Activated Partial Thromboplast Time (test code = 21439-6) 23.4 23.8-35.5 L [facility] Arlington[facility]INGLE ([facility]ABLE)2018-01-31 23:25:00 [place] [address] Patient Name: KALYANI TALAVERA MR #: [id number] : 1955 Age/Sex: 62/F Req #: [id number] Adm Physician: Ordered by: FLO TOLBERT MD Report #: [id number] Location: ER Room/Bed: Procedure: [id number] DX/CHEST SINGLE (PORTABLE) E xam Date: 01/31/18 [...] COPY TO: FLO TOLBERT MD White Blood Zjbvn7046-04-52 23:20:00* Test Item Value Reference Range Interpretation Comments White Blood Count (test code = 6690-2) 5.55 4.8-10.8 [facility] Arlington[facility] Blood Lzjcb1747-89-90 23:20:00* Test Item Value Reference Range Interpretation Comments Red Blood Count (test code = 789-8) 4.21 3.6-5.1 [facility] ArlingtonHemoglobin2018-07-11 23:20:00* Test Item Value Reference Range Interpretation Comments Hemoglobin (test code = 61756-5) 10.6 12.0-16.0 L [facility] ArlingtonHematocrit2018-07-11 23:20:00* Test Item Value Reference Range Interpretation Comments Hematocrit (test code = 4544-3) 34.8 34.2-44.1 [facility] ArlingtonMean Corpuscular Ryzptx5038-68-91 23:20:00* Test Item Value Reference Range Interpretation Comments Mean Corpuscular Volume (test code = 787-2) 82.7 81-99 [facility] ArlingtonMean Corpuscular Mxtscncrur2836-73-86 23:20:00* Test Item Value Reference Range Interpretation Comments Mean Corpuscular Hemoglobin (test code = 785-6) 25.2 28-32 L [facility] ArlingtonMean Corpuscular Hemoglobin Concent 2018-01-31 23:20:00* Test Item Value Reference Range Interpretation Comments Mean Corpuscular Hemoglobin Concent (test code = 786-4) 30.5 31-35 L [facility] ArlingtonRed Cell Distribution Gqajh7429-89-07 23:20:00* Test Item Value Reference Range Interpretation Comments Red Cell Distribution Width (test code = 50843-2) 15.5 11.7 -14.4 H [facility] ArlingtonPlatelet Wlmad6607-53-23 23:20:00* Test Item Value Reference Range Interpretation Comments Platelet Count (test code = 777-3) 176 140-360 [facility] ArlingtonNeutrophils (%) (Auto)2018-01-31 23:20:00 * Test Item Value Reference Range Interpretation Comments Neutrophils (%) (Auto) (test code = 18866-1) 68.7 38.7-80.0 [facility] ArlingtonLymphocytes (%) (Auto)2018-01-31 23:20:00 * Test Item Value Reference Range Interpretation Comments Lymphocytes (%) (Auto) (test code = 736-9) 21.8 18.0-39.1 [facility] ArlingtonMonocytes (%) (Auto)2018-01-31 23:20:00* Test Item Value Reference Range Interpretation Comments Monocytes (%) (Auto) (test code = 5905-5) 5.0 4.4-11.3 [facility] ArlingtonEosinophils (%) (Auto)2018-01-31 23:20:00 * Test Item Value Reference Range Interpretation Comments Eosinophils (%) (Auto) (test code = 713-8) 2.5 0.0-6.0 [facility] (%) (Auto)2018-01-31 23:20:00* Test Item Value Reference Range Interpretation Comments Basophils (%) (Auto) (test code = 706-2) 0.9 0.0-1.0 [facility] ArlingtonIM GRANULOCYTES %2018-01-31 23:20:00* Test Item Value Reference Range Interpretation Comments IM GRANULOCYTES % (test code = IM GRANULOCYTES %) 1.1 0.0- 1.0 H [facility] ArlingtonNeutrophils # (Auto)2018-01-31 23:20:00* Test Item Value Reference Range Interpretation Comments Neutrophils # (Auto) (test code = 751-8) 3.8 2.1-6.9 [facility] ArlingtonLymphocytes # (Auto)2018-01-31 23:20:00* Test Item Value Reference Range Interpretation Comments Lymphocytes # (Auto) (test code = 93911-5) 1.2 1.0-3.2 [facility] ArlingtonMonocytes # (Auto)2018-01-31 23:20:00* Test Item Value Reference Range Interpretation Comments Monocytes # (Auto) (test code = 742-7) 0.3 0.2-0.8 [facility] ArlingtonEosinophils # (Auto)2018-01-31 23:20:00* Test Item Value Reference Range Interpretation Comments Eosinophils # (Auto) (test code = 711-2) 0.1 0.0-0.4 [facility]Bas[facility] # (Auto)2018-01-31 23:20:00* Test Item Value Reference Range Interpretation Comments Basophils # (Auto) (test code = 704-7) 0.1 0.0-0.1 [facility] ArlingtonAbsolute Immature Granulocyte (auto 2018-01-31 23:20:00* Test Item Value Reference Range Interpretation Comments Absolute Immature Granulocyte (auto (joseph t code = Absolute Immature Granulocyte (auto) 0.06 0-0.1 [facility] Uxscjvb9157-76-48 18:58:00* Test Item Value Reference Range Interpretation Comments Bedside Glucose (test code = 58454-8) 293 70-120 H Meter ID: [id number] [facility] Glucose 2017-12-28 14:17:00* Test Item Value Reference Range Interpretation Comments Bedside Glucose (test code = 36585-6) 330 70-120 H Meter ID: [id number] [facility] QYAUM9138-41-76 10:49:00 [facility] [address] [place] [address] Patient Name: KALYANI TALAVERA MR #: [id number] : 1955 Age/Sex: 62/F Req #: [id number] Adm Physician: BENJAMIN MASTERS MD Ordered by: LUCILLE OLIVO MD Report #: [id number] Location: [facility] Room/Bed: [place] [address] Procedure: [id number] DX/KNEE RIGHT THREE VIEWS Exam Date: 12/27/17 [...] Level (test code = 2951-2) 137 136-145 [facility]Potassium Desfg4159-80-86 09:24:00* Test Item Value Reference Range Interpretation Comments Potassium Level (test code = 2823-3) 4.5 3.5-5.1 [facility] ArlingtonChloride Rfmzc0914-54-85 09:24:00* Test Item Value Reference Range Interpretation Comments Chloride Level (test code = 2075-0) 102 98-107 [facility] ArlingtonCarbon Dioxide Ytnle8724-84-11 09:24:00* Test Item Value Reference Range Interpretation Comments Carbon Dioxide Level (test code = 2028-9) 28 22-29 [facility] ArlingtonAnion Wei7690-11-30 09:24:00* Test Item Value Reference Range Interpretation Comments Anion Gap (test code = 76848-7) 11.5 8-16 [facility] ArlingtonBlood Urea Fpfpicpt1934-17-64 09:24:00* Test Item Value Reference Range Interpretation Comments Blood Urea Nitrogen (test code = 3094-0) 21 7-26 [facility] ArlingtonCreatinine2018-06-04 09:24:00* Test Item Value Reference Range Interpretation Comments Creatinine (test code = 2160-0) 1.09 0.57-1.11 [facility] ArlingtonBUN/Creatinine Bnxoq1802-85-49 09:24:00* Test Item Value Reference Range Interpretation Comments BUN/Creatinine Ratio (test code = 3097-3) 19 6-25 [facility] ArlingtonEstimat Glomerular Filtration Rate 2017-12-25 09:24:00* Test Item Value Reference Range Interpretation Comments Estimat Glomerular Filtration Rate (test code = 68909-0) 51 >60 L Ranges were taken from the National Kidney Disease Education Program and the Jenise counts include [facility] literature.Reference ranges:60 or greater: Kuletl52-77 ( for 3 consecutive months): Chronic kidney disease 15 or less: Kidney failureUSMD Hospital at ArlingtonGlucose Lkqta3423-66-12 09:24:00* Test Item Value Reference Range Interpretation Comments Glucose Level (test code = LXE6250) 458 74-118 HH Results called to RANCHO CONTI RN at 0924 on 12/25/17 by Audi Manriquez. RB OK.Thi s test has been rerun and double checked for accuracy.[facility] ArlingtonCalcium Sthss9489-65-06 09:24:00* Test Item Value Reference Range Interpretation Comments Calcium Level (test code = 88209-2) 9.0 8.4-10.2 [facility] ArlingtonCreatine Kinase MF7986-42-76 16:42:00* Test Item Value Reference Range Interpretation Comments Creatine Kinase MB (test code = 25468-0) 2.60 0-5.0 [facility] ArlingtonTroponin X0913-02-27 16:42:00* Test Item Value Reference Range Interpretation Comments Troponin I (test code = TQK0627) -0.001 0-0.300 [facility] ArlingtonCreatine Bijcxv4774-09-63 16:36:00* Test Item Value Reference Range Interpretation Comments Creatine Kinase (test code = 2157-6) 60 29-168 [facility] ArlingtonTotal Gzeyhcxwc0234-94-78 08:48:00* Test Item Value Reference Range Interpretation Comments Total Bilirubin (test code = 1975-2) 0.3 0.2-1.2 [facility] ArlingtonAspartate Amino Transf (AST/SGOT) 2017-12-24 08:48:00* Test Item Value Reference Range Interpretation Comments Aspartate Amino Transf (AST/SGOT) (test code = Aspartate Amino Transf (AST/SGOT)) 23 5-34 [facility] ArlingtonAlanine Aminotransferase (ALT/SGPT) 2017-12-24 08:48:00* Test Item Value Reference Range Interpretation Comments Alanine Aminotransferase (ALT/SGPT) (test code = 1742-6) 45 0-55 [facility] ArlingtonTotal Drllzqt8853-45-12 08:48:00* Test Item Value Reference Range Interpretation Comments Total Protein (test code = 2885-2) 6.3 6.5-8.1 L [facility] ArlingtonAlbumin2018-06-03 08:48:00* Test Item Value Reference Range Interpretation Comments Albumin (test code = 1751-7) 3.2 3.5-5.0 L [facility] ArlingtonGlobulin2018-06-03 08:48:00* Test Item Value Reference Range Interpretation Comments Globulin (test code = 15825-5) 3.1 2.3-3.5 [facility] ArlingtonAlbumin/Globulin Fwflp4825-34-50 08:48:00 * Test Item Value Reference Range Interpretation Comments Albumin/Globulin Ratio (test code = 1759-0) 1.0 0.8-2.0 [facility] ArlingtonAlkaline Gyrhtkszrjj7987-57-80 08:48:00* Test Item Value Reference Range Interpretation Comments Alkaline Phosphatase (test code = 6768-6) 71 40-150 [facility] ArlingtonTriglycerides Iktzy6047-66-09 08:48:00* Test Item Value Reference Range Interpretation Comments Triglycerides Level (test code = 2571-8) 218 0-149 H [facility] ArlingtonCholesterol Mkzpb1837-16-75 08:48:00* Test Item Value Reference Range Interpretation Comments Cholesterol Level (test code = 2093-3) 168 0-199 Less than 200 mg/dL Low Ovxg841 - 239 mg/dL Borderline Lxei147 m g/dl and greater High Risk [facility] ArlingtonLDL Kbdrjngiqia0166-10-37 08:48:00* Test Item Value Reference Range Interpretation Comments LDL Cholesterol (test code = 2089-1) 96 60-130 [facility] ArlingtonHDL Fjwqllublgt7720-96-64 08:48:00* Test Item Value Reference Range Interpretation Comments HDL Cholesterol (test code = 2085-9) 28 40-60 L [facility] ArlingtonCholesterol/HDL Neauw5843-34-69 08:48:00 * Test Item Value Reference Range Interpretation Comments Cholesterol/HDL Ratio (test code = 9830-1) 6.0 3.0-3.6 H [facility] ArlingtonTriglycerides Ouruz2974-86-14 08:48:00* Test Item Value Reference Range Interpretation Comments Triglycerides Level (test code = 2571-8) 218 0-149 H [facility] ArlingtonCholesterol Qacui4217-28-70 08:48:00* Test Item Value Reference Range Interpretation Comments Cholesterol Level (test code = 2093-3) 168 0-199 Less than 200 mg/dL Low Qhju186 - 239 mg/dL Borderline Hrww783 m g/dl and greater High Risk [facility] ArlingtonLDL Tpurpwtowvb6952-86-86 08:48:00* Test Item Value Reference Range Interpretation Comments LDL Cholesterol (test code = 2089-1) 96 60-130 [facility] ArlingtonHDL Hvdvbnamtda8055-06-51 08:48:00* Test Item Value Reference Range Interpretation Comments HDL Cholesterol (test code = 2085-9) 28 40-60 L [facility] ArlingtonCholesterol/HDL Bxkid9294-43-69 08:48:00 * Test Item Value Reference Range Interpretation Comments Cholesterol/HDL Ratio (test code = 9830-1) 6.0 3.0-3.6 H [facility] ArlingtonWhite Blood Ncpda7616-65-34 08:25:00* Test Item Value Reference Range Interpretation Comments White Blood Count (test code = 6690-2) 3.93 4.8-10.8 L [facility] ArlingtonRed Blood Nyjjz5916-71-23 08:25:00* Test Item Value Reference Range Interpretation Comments Red Blood Count (test code = 789-8) 4.06 3.6-5.1 [facility] ArlingtonHemoglobin2018-06-03 08:25:00* Test Item Value Reference Range Interpretation Comments Hemoglobin (test code = 63754-2) 10.2 12.0-16.0 L [facility] ArlingtonHematocrit2018-06-03 08:25:00* Test Item Value Reference Range Interpretation Comments Hematocrit (test code = 4544-3) 34.0 34.2-44.1 L [facility] ArlingtonMean Corpuscular Lcfjqn9732-52-00 08:25:00* Test Item Value Reference Range Interpretation Comments Mean Corpuscular Volume (test code = 787-2) 83.7 81-99 [facility] ArlingtonMean Corpuscular Uhwdibgfit6173-50-70 08:25:00* Test Item Value Reference Range Interpretation Comments Mean Corpuscular Hemoglobin (test code = 785-6) 25.1 28-32 L [facility] ArlingtonMean Corpuscular Hemoglobin Concent 2017-12-24 08:25:00* Test Item Value Reference Range Interpretation Comments Mean Corpuscular Hemoglobin Concent (test code = 786-4) 30.0 31-35 L [facility] ArlingtonRed Cell Distribution Dpixz8003-84-04 08:25:00* Test Item Value Reference Range Interpretation Comments Red Cell Distribution Width (test code = 12041-3) 15.2 11.7 -14.4 H [facility] ArlingtonPlatelet Osnqi3657-63-33 08:25:00* Test Item Value Reference Range Interpretation Comments Platelet Count (test code = 777-3) 169 140-360 [facility] ArlingtonNeutrophils (%) (Auto)2017-12-24 08:25:00 * Test Item Value Reference Range Interpretation Comments Neutrophils (%) (Auto) (test code = 07094-6) 59.0 38.7-80.0 [facility] ArlingtonLymphocytes (%) (Auto)2017-12-24 08:25:00 * Test Item Value Reference Range Interpretation Comments Lymphocytes (%) (Auto) (test code = 736-9) 27.5 18.0-39.1 [facility] ArlingtonMonocytes (%) (Auto)2017-12-24 08:25:00* Test Item Value Reference Range Interpretation Comments Monocytes (%) (Auto) (test code = 5905-5) 6.6 4.4-11.3 [facility] ArlingtonEosinophils (%) (Auto)2017-12-24 08:25:00 * Test Item Value Reference Range Interpretation Comments Eosinophils (%) (Auto) (test code = 713-8) 4.8 0.0-6.0 [facility] ArlingtonBasophils (%) (Auto)2017-12-24 08:25:00* Test Item Value Reference Range Interpretation Comments Basophils (%) (Auto) (test code = 706-2) 1.3 0.0-1.0 H [facility] ArlingtonIM GRANULOCYTES %2017-12-24 08:25:00* Test Item Value Reference Range Interpretation Comments IM GRANULOCYTES % (test code = IM GRANULOCYTES %) 0.8 0.0- 1.0 [facility] ArlingtonNeutrophils # (Auto)2017-12-24 08:25:00* Test Item Value Reference Range Interpretation Comments Neutrophils # (Auto) (test code = 751-8) 2.3 2.1-6.9 [facility] ArlingtonLymphocytes # (Auto)2017-12-24 08:25:00* Test Item Value Reference Range Interpretation Comments Lymphocytes # (Auto) (test code = 79896-3) 1.1 1.0-3.2 [facility] ArlingtonMonocytes # (Auto)2017-12-24 08:25:00* Test Item Value Reference Range Interpretation Comments Monocytes # (Auto) (test code = 742-7) 0.3 0.2-0.8 [facility] ArlingtonEosinophils # (Auto)2017-12-24 08:25:00* Test Item Value Reference Range Interpretation Comments Eosinophils # (Auto) (test code = 711-2) 0.2 0.0-0.4 [facility] ArlingtonBasophils # (Auto)2017-12-24 08:25:00* Test Item Value Reference Range Interpretation Comments Basophils # (Auto) (test code = 704-7) 0.1 0.0-0.1 [facility] ArlingtonAbsolute Immature Granulocyte (auto 2017-12-24 08:25:00* Test Item Value Reference Range Interpretation Comments Absolute Immature Granulocyte (auto (joseph t code = Absolute Immature Granulocyte (auto) 0.03 0-0.1 [facility] ArlingtonB-Type Natriuretic Kebqbae2213-65-84 23:03:00* Test Item Value Reference Range Interpretation Comments B-Type Natriuretic Peptide (test code = 04007-7) 125.0 0-100 H [facility] ArlingtonThyroid Stimulating Hormone (TSH) 2017-12-23 22:39:00* Test Item Value Reference Range Interpretation Comments Thyroid Stimulating Hormone (TSH) (test code = 84419-4) 0.865 0.350-4.940 [facility] ArlingtonThyroid Stimulating Hormone (TSH) 2017-12-23 22:39:00* Test Item Value Reference Range Interpretation Comments Thyroid Stimulating Hormone (TSH) (test code = 86456-9) 0.865 0.350-4.940 [facility] ArlingtonThyroid Stimulating Hormone (TSH) 2017-12-23 22:39:00* Test Item Value Reference Range Interpretation Comments Thyroid Stimulating Hormone (TSH) (test code = 07210-4) 0.865 0.350-4.940 [facility] ArlingtonThyroid Stimulating Hormone (TSH) 2017-12-23 22:39:00* Test Item Value Reference Range Interpretation Comments Thyroid Stimulating Hormone (TSH) (test code = 69677-0) 0.865 0.350-4.940 [facility] ArlingtonThyroid Stimulating Hormone (TSH) 2017-12-23 22:39:00* Test Item Value Reference Range Interpretation Comments Thyroid Stimulating Hormone (TSH) (test code = 34411-3) 0.865 0.350-4.940 [facility] ArlingtonThyroid Stimulating Hormone (TSH) 2017-12-23 22:39:00* Test Item Value Reference Range Interpretation Comments Thyroid Stimulating Hormone (TSH) (test code = 69118-3) 0.865 0.350-4.940 [facility] ArlingtonThyroid Stimulating Hormone (TSH) 2017-12-23 22:39:00* Test Item Value Reference Range Interpretation Comments Thyroid Stimulating Hormone (TSH) (test code = 39479-2) 0.865 0.350-4.940 [facility] ArlingtonUrine FEZ1770-59-36 22:23:00* Test Item Value Reference Range Interpretation Comments Urine WBC (test code = 5821-4) 0-5 0-5 [facility] ArlingtonU[facility] QUW9572-65-80 22:23:00* Test Item Value Reference Range Interpretation Comments Urine RBC (test code = 74070-7) 0-5 0-5 [facility] ArlingtonU[facility] Trlonnyo1802-80-18 22:23:00* Test Item Value Reference Range Interpretation Comments Urine Bacteria (test code = 52419-3) RARE NONE [facility] Epithelial Lsipe6768-49-49 22:23:00 * Test Item Value Reference Range Interpretation Comments Urine Epithelial Cells (test code = 62812-9) RARE NONE [facility] ArlingtonU[facility] Myofu9057-15-75 22:04:00* Test Item Value Reference Range Interpretation Comments Urine Color (test code = 5778-6) YELLOW YELLOW [facility] ArlingtonUrine Lwilaog5845-52-19 22:04:00* Test Item Value Reference Range Interpretation Comments Urine Clarity (test code = 59207-1) CLEAR CLEAR [facility] ArlingtonU[facility] Specific Pahvcnv1308-52-95 22:04:00 * Test Item Value Reference Range Interpretation Comments Urine Specific [place] (test code = 5811-5) 1.010 1.010-1.02 5 [facility] ArlingtonU[facility] pC3184-93-49 22:04:00* Test Item Value Reference Range Interpretation Comments Urine pH (test code = 66139-7) 6 5-7 [facility] ArlingtonU[facility] Leukocyte Jbwsdykn5773-22-82 22:04:00* Test Item Value Reference Range Interpretation Comments Urine Leukocyte Esterase (test code = 5799-2) NEGATIVE NEGATIVE [facility] ArlingtonU[facility] Ffxchyt6893-96-51 22:04:00* Test Item Value Reference Range Interpretation Comments Urine Nitrite (test code = 18155-6) NEGATIVE NEGATIVE [facility] ArlingtonU[facility] Hdgbdfg3509-04-65 22:04:00* Test Item Value Reference Range Interpretation Comments Urine Protein (test code = 5804-0) NEGATIVE NEGATIVE [facility] ArlingtonU[facility] Glucose (UA)2017-12-23 22:04:00* Test Item Value Reference Range Interpretation Comments Urine Glucose (UA) (test code = 2349-9) 3+ NEGATIVE H [facility] ArlingtonUrine Wxruqts4646-22-87 22:04:00* Test Item Value Reference Range Interpretation Comments Urine Ketones (test code = 76269-4) NEGATIVE NEGATIVE [facility] ArlingtonU[facility] Dahpfttcinbz6590-90-30 22:04:00* Test Item Value Reference Range Interpretation Comments Urine Urobilinogen (test code = 09341-6) 0.2 0.2-1 [facility] ArlingtonU[facility] Iicwqvldd4921-27-44 22:04:00* Test Item Value Reference Range Interpretation Comments Urine Bilirubin (test code = 1978-6) NEGATIVE NEGATIVE [facility] ArlingtonU[facility] Xufzn3210-42-98 22:04:00* Test Item Value Reference Range Interpretation Comments Urine Blood (test code = 00267-5) NEGATIVE NEGATIVE [facility] ArlingtonMagnesium Owrjx7469-99-26 22:03:00* Test Item Value Reference Range Interpretation Comments Magnesium Level (test code = 41239-4) 1.8 1.3-2.1 [facility]Prothrombin Iiej8109-15-29 21:58:00* Test Item Value Reference Range Interpretation Comments Prothrombin Time (test code = 5902-2) 13.6 11.9-14.5 [facility] ArlingtonProthromb Time International Ratio 2017-12-23 21:58:00* Test Item Value Reference Range Interpretation Comments Prothromb Time International Ratio (test code = 6301-6) 1.13 Oral Anticoagulant Therapy INR Values:1. Low Intensity Therapy 1.5 - 2.02 . Moderate Intensity Therapy 2.0 - 3.03. High Intensity Therapy(1) 2.5 - 3. 54. High Intensity Therapy(2) 3.0 - 4.05. Panic Value INR > 5.0 [facility] ArlingtonAct[facility] Partial Thromboplast Time 2017-12-23 21:58:00* Test Item Value Reference Range Interpretation Comments Activated Partial Thromboplast Time (test code = 04048-2) 23.8 23.8-35.5 [facility]2018-03-27 00:04:00* Test Item Value Reference Range Interpretation Comments Blood Culture (test code = 47421343) NO GROWTH AFTER 5 DAYS, FINAL REPORT [facility]2018-03-27 00:04:00* Test Item Value Reference Range Interpretation Comments Blood Culture (test code = 87164280) NO GROWTH AFTER 5 DAYS, FINAL REPORT [facility]2018-03-27 00:04:00* Test Item Value Reference Range Interpretation Comments Blood Culture (test code = 26934634) NO GROWTH AFTER 5 DAYS, FINAL REPORT [facility]2018-03-27 00:04:00* Test Item Value Reference Range Interpretation Comments Blood Culture (test code = 41936589) NO GROWTH AFTER 5 DAYS, FINAL REPORT [facility]2018-03-27 00:04:00* Test Item Value Reference Range Interpretation Comments Blood Culture (test code = 72791842) NO GROWTH AFTER 5 DAYS, FINAL REPORT [facility]2018-03-27 00:04:00* Test Item Value Reference Range Interpretation Comments Blood Culture (test code = 61971743) NO GROWTH AFTER 5 DAYS, FINAL REPORT [facility]2018-03-27 00:04:00* Test Item Value Reference Range Interpretation Comments Blood Culture (test code = 56405243) NO GROWTH AFTER 5 DAYS, FINAL REPORT [facility] Wgsxadv1946-76-66 00:04:00* Test Item Value Reference Range Interpretation Comments Blood Culture (test code = 37927999) NO GROWTH AFTER 5 DAYS, FINAL REPORT [facility]2018-03-27 00:04:00* Test Item Value Reference Range Interpretation Comments Blood Culture (test code = 13448043) NO GROWTH AFTER 5 DAYS, [facility] Vynka[facility]259-[facility]-06 00:58:[facility]* Test Item Value Reference Range Interpretation Comments Sodium Level (test code = 2951-2) 137 136-145 [facility]Pot[facility] Pyukn9026-25-02 00:58:00* Test Item Value Reference Range Interpretation Comments Potassium Level (test code = 2823-3) 4.1 3.5-5.1 [facility] ArlingtonChloride Bsdbx8363-67-11 00:58:00* Test Item Value Reference Range Interpretation Comments Chloride Level (test code = 2075-0) 105 98-107 [facility] ArlingtonCarbon Dioxide Mpdnq9794-97-71 00:58:00* Test Item Value Reference Range Interpretation Comments Carbon Dioxide Level (test code = 2028-9) 21 22-29 L [facility] ArlingtonAnion Yvx4235-61-02 00:58:00* Test Item Value Reference Range Interpretation Comments Anion Gap (test code = 94745-1) 15.1 8-16 [facility] ArlingtonBlood Urea Muxzejod3940-74-74 00:58:00* Test Item Value Reference Range Interpretation Comments Blood Urea Nitrogen (test code = 3094-0) 37 7-26 H [facility] ArlingtonCreatinine2018-03-22 00:58:00* Test Item Value Reference Range Interpretation Comments Creatinine (test code = 2160-0) 1.54 0.57-1.11 H [facility]/Creatinine Yqyco5792-18-72 00:58:00* Test Item Value Reference Range Interpretation Comments BUN/Creatinine Ratio (test code = 3097-3) 24 6-25 [facility] ArlingtonEstimat Glomerular Filtration Rate 2017-10-12 00:58:00* Test Item Value Reference Range Interpretation Comments Estimat Glomerular Filtration Rate (test code = 77909-5) 34 >60 L Ranges were taken from the National Kidney Disease Education Program and the Jenise counts [facility] literature.Reference ranges:60 or greater: Zkhqww01-22 ( for 3 consecutive months): Chronic kidney disease 15 or less: Kidney failureUSMD Hospital at ArlingtonGlucose Iiwtl0128-53-19 00:58:00* Test Item Value Reference Range Interpretation Comments Glucose Level (test code = GFB7189) 286 74-118 H [facility] ArlingtonCalcium Minsc8536-95-85 00:58:00* Test Item Value Reference Range Interpretation Comments Calcium Level (test code = 65368-6) 8.7 8.4-10.2 [facility] ArlingtonMagnesium Kaazk0845-44-81 00:58:00* Test Item Value Reference Range Interpretation Comments Magnesium Level (test code = 55230-8) 1.6 1.3-2.1 [facility] ArlingtonTotal Vhvcenadd4701-61-99 00:58:00* Test Item Value Reference Range Interpretation Comments Total Bilirubin (test code = 1975-2) 0.3 0.2-1.2 [facility] ArlingtonAspartate Amino Transf (AST/SGOT) 2017-10-12 00:58:00* Test Item Value Reference Range Interpretation Comments Aspartate Amino Transf (AST/SGOT) (test code = Aspartate Amino Transf (AST/SGOT)) 22 5-34 [facility] ArlingtonAlanine Aminotransferase (ALT/SGPT) 2017-10-12 00:58:00* Test Item Value Reference Range Interpretation Comments Alanine Aminotransferase (ALT/SGPT) (test code = 1742-6) 24 0-55 [facility] Dxxzcts5747-03-85 00:58:00* Test Item Value Reference Range Interpretation Comments Total Protein (test code = 2885-2) 6.5 6.5-8.1 [facility] ArlingtonAlbumin2018-03-22 00:58:00* Test Item Value Reference Range Interpretation Comments Albumin (test code = 1751-7) 3.2 3.5-5.0 L [facility] ArlingtonGlobulin2018-03-22 00:58:00* Test Item Value Reference Range Interpretation Comments Globulin (test code = 34011-1) 3.3 2.3-3.5 [facility] ArlingtonAlbumin/Globulin Hrnli1822-68-96 00:58:00 * Test Item Value Reference Range Interpretation Comments Albumin/Globulin Ratio (test code = 1759-0) 1.0 0.8-2.0 [facility] ArlingtonAlkaline Vxxjzrhkzdl5933-74-84 00:58:00* Test Item Value Reference Range Interpretation Comments Alkaline Phosphatase (test code = 6768-6) 69 40-150 [facility] ArlingtonB-Type Natriuretic Ypwivep0730-09-82 00:58:00* Test Item Value Reference Range Interpretation Comments B-Type Natriuretic Peptide (test code = 06266-6) 46.4 0-100 [facility] ArlingtonCreatine Qiaeig6107-35-25 00:58:00* Test Item Value Reference Range Interpretation Comments Creatine Kinase (test code = 2157-6) 86 29-168 [facility] ArlingtonCreatine Kinase ZS3448-12-14 00:58:00* Test Item Value Reference Range Interpretation Comments Creatine Kinase MB (test code = 17851-6) 3.00 0-5.0 [facility] ArlingtonTroponin L5899-76-41 00:58:00* Test Item Value Reference Range Interpretation Comments Troponin I (test code = OLP5545) -0.001 0-0.[address] [facility] Bcafh3320-70-26 00:58:00* Test Item Value Reference Range Interpretation Comments Sodium Level (test code = 2951-2) 137 136-145 [facility] ArlingtonPotassium Lirji3894-33-32 00:58:00* Test Item Value Reference Range Interpretation Comments Potassium Level (test code = 2823-3) 4.1 3.5-5.1 [facility] ArlingtonChloride Rmdrm1059-13-34 00:58:00* Test Item Value Reference Range Interpretation Comments Chloride Level (test code = 2075-0) 105 98-107 [facility] ArlingtonCarbon Dioxide Eppap7555-96-44 00:58:00* Test Item Value Reference Range Interpretation Comments Carbon Dioxide Level (test code = 2028-9) 21 22-29 L [facility] ArlingtonAnion Ram5032-63-33 00:58:00* Test Item Value Reference Range Interpretation Comments Anion Gap (test code = 91314-7) 15.1 8-16 [facility] ArlingtonBlood Urea Phuoacsb8650-72-59 00:58:00* Test Item Value Reference Range Interpretation Comments Blood Urea Nitrogen (test code = 3094-0) 37 7-26 H [facility] ArlingtonCreatinine2018-03-22 00:58:00* Test Item Value Reference Range Interpretation Comments Creatinine (test code = 2160-0) 1.54 0.57-1.11 H [facility] ArlingtonBUN/Creatinine Goltd2955-37-14 00:58:00* Test Item Value Reference Range Interpretation Comments BUN/Creatinine Ratio (test code = 3097-3) 24 6-25 [facility] ArlingtonEstimat Glomerular Filtration Rate 2017-10-12 00:58:00* Test Item Value Reference Range Interpretation Comments Estimat Glomerular Filtration Rate (test code = 43928-0) 34 >60 L Ranges were taken from the National Kidney Disease Education Program and the Jenise counts [facility] literature.Reference ranges:60 or greater: Zgdbyx35-66 ( for 3 consecutive months): Chronic kidney disease 15 or less: Kidney failureCH[facility] HospitalGlucose Qxnla7495-22-23 00:58:00* Test Item Value Reference Range Interpretation Comments Glucose Level (test code = PLI0045) 286 74-118 H [facility] ArlingtonCalcium Elpay3936-35-91 00:58:00* Test Item Value Reference Range Interpretation Comments Calcium Level (test code = 21935-7) 8.7 8.4-10.2 [facility] ArlingtonMagnesium Cntxu9304-49-01 00:58:00* Test Item Value Reference Range Interpretation Comments Magnesium Level (test code = 41151-1) 1.6 1.3-2.1 [facility] ArlingtonTotal Pgfsoglcu6558-61-90 00:58:00* Test Item Value Reference Range Interpretation Comments Total Bilirubin (test code = 1975-2) 0.3 0.2-1.2 [facility] ArlingtonAspartate Amino Transf (AST/SGOT) 2017-10-12 00:58:00* Test Item Value Reference Range Interpretation Comments Aspartate Amino Transf (AST/SGOT) (test code = Aspartate Amino Transf (AST/SGOT)) 22 5-34 [facility] ArlingtonAlanine Aminotransferase (ALT/SGPT) 2017-10-12 00:58:00* Test Item Value Reference Range Interpretation Comments Alanine Aminotransferase (ALT/SGPT) (test code = 1742-6) 24 0-55 [facility] ArlingtonTotal Djkjnut8568-05-81 00:58:00* Test Item Value Reference Range Interpretation Comments Total Protein (test code = 2885-2) 6.5 6.5-8.1 [facility] ArlingtonAlbumin2018-03-22 00:58:00* Test Item Value Reference Range Interpretation Comments Albumin (test code = 1751-7) 3.2 3.5-5.0 L [facility] ArlingtonGlobulin2018-03-22 00:58:00* Test Item Value Reference Range Interpretation Comments Globulin (test code = 97545-7) 3.3 2.3-3.5 [facility] ArlingtonAlbumin/Globulin Qmtrc8578-41-84 00:58:00 * Test Item Value Reference Range Interpretation Comments Albumin/Globulin Ratio (test code = 1759-0) 1.0 0.8-2.0 [facility] ArlingtonAlkaline Pjtswrxjvzl6665-90-56 00:58:00* Test Item Value Reference Range Interpretation Comments Alkaline Phosphatase (test code = 6768-6) 69 40-150 [facility] ArlingtonB-Type Natriuretic Paisdbc6084-90-22 00:58:00* Test Item Value Reference Range Interpretation Comments B-Type Natriuretic Peptide (test code = 84228-1) 46.4 0-100 [facility] ArlingtonCreatine Wpeenw7661-48-52 00:58:00* Test Item Value Reference Range Interpretation Comments Creatine Kinase (test code = 2157-6) 86 29-168 [facility] ArlingtonCreatine Kinase JL2285-71-85 00:58:00* Test Item Value Reference Range Interpretation Comments Creatine Kinase MB (test code = 78565-8) 3.00 0-5.0 [facility] ArlingtonTroponin S3354-03-70 00:58:00* Test Item Value Reference Range Interpretation Comments Troponin I (test code = NJJ3763) -0.001 0-0.[address] [facility] Yizpk9906-65-23 00:58:00* Test Item Value Reference Range Interpretation Comments Sodium Level (test code = 2951-2) 137 136-145 [facility] ArlingtonPotassium Jssus4337-64-49 00:58:00* Test Item Value Reference Range Interpretation Comments Potassium Level (test code = 2823-3) 4.1 3.5-5.1 [facility] ArlingtonChloride Cutok3075-95-96 00:58:00* Test Item Value Reference Range Interpretation Comments Chloride Level (test code = 2075-0) 105 98-107 [facility] ArlingtonCarbon Dioxide Lydvu2092-25-12 00:58:00* Test Item Value Reference Range Interpretation Comments Carbon Dioxide Level (test code = 2028-9) 21 22-29 L [facility] ArlingtonAnion Amw5588-95-15 00:58:00* Test Item Value Reference Range Interpretation Comments Anion Gap (test code = 60297-0) 15.1 8-16 [facility] ArlingtonBlood Urea Wkcfmjys5206-56-68 00:58:00* Test Item Value Reference Range Interpretation Comments Blood Urea Nitrogen (test code = 3094-0) 37 7-26 H [facility] ArlingtonCreatinine2018-03-22 00:58:00* Test Item Value Reference Range Interpretation Comments Creatinine (test code = 2160-0) 1.54 0.57-1.11 H [facility] ArlingtonBUN/Creatinine Bdeix4632-17-98 00:58:00* Test Item Value Reference Range Interpretation Comments BUN/Creatinine Ratio (test code = 3097-3) 24 6-25 [facility] ArlingtonEstimat Glomerular Filtration Rate 2017-10-12 00:58:00* Test Item Value Reference Range Interpretation Comments Estimat Glomerular Filtration Rate (test code = 56484-2) 34 >60 L Ranges were taken from the National Kidney Disease Education Program and the Jenise counts [facility] literature.Reference ranges:60 or greater: Dmdbxk16-51 ( for 3 consecutive months): Chronic kidney disease 15 or less: Kidney failureUSMD Hospital at ArlingtonGlucose Fketk1059-68-06 00:58:00* Test Item Value Reference Range Interpretation Comments Glucose Level (test code = KJP6422) 286 74-118 H [facility] ArlingtonCalcium Lhkzo9199-29-09 00:58:00* Test Item Value Reference Range Interpretation Comments Calcium Level (test code = 40994-9) 8.7 8.4-10.2 [facility] ArlingtonMagnesium Dlqrt3533-58-40 00:58:00* Test Item Value Reference Range Interpretation Comments Magnesium Level (test code = 49435-7) 1.6 1.3-2.1 [facility] ArlingtonTotal Zcownsohv8091-86-80 00:58:00* Test Item Value Reference Range Interpretation Comments Total Bilirubin (test code = 1975-2) 0.3 0.2-1.2 [facility] ArlingtonAspartate Amino Transf (AST/SGOT) 2017-10-12 00:58:00* Test Item Value Reference Range Interpretation Comments Aspartate Amino Transf (AST/SGOT) (test code = Aspartate Amino Transf (AST/SGOT)) 22 5-34 [facility] ArlingtonAlanine Aminotransferase (ALT/SGPT) 2017-10-12 00:58:00* Test Item Value Reference Range Interpretation Comments Alanine Aminotransferase (ALT/SGPT) (test code = 1742-6) 24 0-55 [facility] ArlingtonTotal Jfwavsl5835-93-15 00:58:00* Test Item Value Reference Range Interpretation Comments Total Protein (test code = 2885-2) 6.5 6.5-8.1 [facility] ArlingtonAlbumin2018-03-22 00:58:00* Test Item Value Reference Range Interpretation Comments Albumin (test code = 1751-7) 3.2 3.5-5.0 L [facility] ArlingtonGlobulin2018-03-22 00:58:00* Test Item Value Reference Range Interpretation Comments Globulin (test code = 31889-9) 3.3 2.3-3.5 [facility] ArlingtonAlbumin/Globulin Mhcsb6097-86-43 00:58:00 * Test Item Value Reference Range Interpretation Comments Albumin/Globulin Ratio (test code = 1759-0) 1.0 0.8-2.0 [facility] ArlingtonAlkaline Gqikvzfdtfh3712-97-79 00:58:00* Test Item Value Reference Range Interpretation Comments Alkaline Phosphatase (test code = 6768-6) 69 40-150 [facility] ArlingtonB-Type Natriuretic Lnaocdi9934-62-48 00:58:00* Test Item Value Reference Range Interpretation Comments B-Type Natriuretic Peptide (test code = 51118-0) 46.4 0-100 [facility] ArlingtonCreatine Tjqsku8983-41-92 00:58:00* Test Item Value Reference Range Interpretation Comments Creatine Kinase (test code = 2157-6) 86 29-168 [facility] ArlingtonCreatine Kinase XL0645-57-62 00:58:00* Test Item Value Reference Range Interpretation Comments Creatine Kinase MB (test code = 60091-1) 3.00 0-5.0 [facility] ArlingtonTroponin L1779-60-14 00:58:00* Test Item Value Reference Range Interpretation Comments Troponin I (test code = LNU3991) -0.001 0-0.300 [facility] ArlingtonLactic Acid Sekvj1911-94-96 00:40:00* Test Item Value Reference Range Interpretation Comments Lactic Acid Level (test code = Lactic Acid Level) 14.6 4.5- 19.8 [facility] ArlingtonLactic Acid Kdcvb7637-31-44 00:40:00* Test Item Value Reference Range Interpretation Comments Lactic Acid Level (test code = Lactic Acid Level) 14.6 4.5- 19.8 [facility] ArlingtonLactic Acid Mcfxz5504-03-49 00:40:00* Test Item Value Reference Range Interpretation Comments Lactic Acid Level (test code = Lactic Acid Level) 14.6 4.5- 19.8 [facility] ArlingtonLactic Acid Xsrmc4958-14-99 00:40:00* Test Item Value Reference Range Interpretation Comments Lactic Acid Level (test code = Lactic Acid Level) 14.6 4.5- 19.8 [facility] ArlingtonLactic Acid Mbmou7994-70-55 00:40:00* Test Item Value Reference Range Interpretation Comments Lactic Acid Level (test code = Lactic Acid Level) 14.6 4.5- 19.8 [facility] ArlingtonLactic Acid Eydaq4249-05-99 00:40:00* Test Item Value Reference Range Interpretation Comments Lactic Acid Level (test code = Lactic Acid Level) 14.6 4.5- 19.8 [facility] ArlingtonLactic Acid Zfrqe3990-38-70 00:40:00* Test Item Value Reference Range Interpretation Comments Lactic Acid Level (test code = Lactic Acid Level) 14.6 4.5- 19.8 [facility] ArlingtonLactic Acid Kgujt1234-13-42 00:40:00* Test Item Value Reference Range Interpretation Comments Lactic Acid Level (test code = Lactic Acid Level) 14.6 4.5- 19.8 [facility] QUG9003-52-07 00:38:00* Test Item Value Reference Range Interpretation Comments Urine WBC (test code = 5821-4) 0-5 0-5 [facility] ArlingtonU[facility] YUA6252-19-68 00:38:00* Test Item Value Reference Range Interpretation Comments Urine RBC (test code = 86235-6) 0-5 0-5 [facility] ArlingtonU[facility] Kncitxqj5592-07-89 00:38:00* Test Item Value Reference Range Interpretation Comments Urine Bacteria (test code = 47446-4) RARE NONE [facility] ArlingtonU[facility] Epithelial Cyccr9215-15-75 00:38:00 * Test Item Value Reference Range Interpretation Comments Urine Epithelial Cells (test code = 27509-8) FEW NONE [facility] ArlingtonU[facility] HQW6917-07-34 00:38:00* Test Item Value Reference Range Interpretation Comments Urine WBC (test code = 5821-4) 0-5 0-5 [facility] ArlingtonU[facility] SRX3328-95-57 00:38:00* Test Item Value Reference Range Interpretation Comments Urine RBC (test code = 01014-0) 0-5 0-5 [facility] ArlingtonU[facility] Ukuqgcpv5999-41-97 00:38:00* Test Item Value Reference Range Interpretation Comments Urine Bacteria (test code = 86651-8) RARE NONE [facility] Arlington[facility] Epithelial Mifpt5761-29-15 00:38:00 * Test Item Value Reference Range Interpretation Comments Urine Epithelial Cells (test code = 77587-3) FEW NONE [facility] ArlingtonU[facility] QAX5898-87-67 00:38:00* Test Item Value Reference Range Interpretation Comments Urine WBC (test code = 5821-4) 0-5 0-5 [facility] Arlington[facility] IAG9153-09-30 00:38:00* Test Item Value Reference Range Interpretation Comments Urine RBC (test code = 76517-5) 0-5 0-5 [facility] ArlingtonU[facility] Oqeczazx7653-86-72 00:38:00* Test Item Value Reference Range Interpretation Comments Urine Bacteria (test code = 95006-7) RARE NONE [facility] Arlington[facility] Epithelial Wphgo6349-12-26 00:38:00 * Test Item Value Reference Range Interpretation Comments Urine Epithelial Cells (test code = 04960-9) FEW NONE [facility] ArlingtonProthrombin Ukar8380-47-93 00:31:00* Test Item Value Reference Range Interpretation Comments Prothrombin Time (test code = 5902-2) 12.5 11.9-14.5 [facility] ArlingtonProthromb Time International Ratio 2017-10-12 00:31:00* Test Item Value Reference Range Interpretation Comments Prothromb Time International Ratio (test code = 6301-6) 1.01 Oral Anticoagulant Therapy INR Values:1. Low Intensity Therapy 1.5 - 2.02 . Moderate Intensity Therapy 2.0 - 3.03. High Intensity Therapy(1) 2.5 - 3. 54. High Intensity Therapy(2) 3.0 - 4.05. Panic Value INR > 5.0 [facility] ArlingtonAct[facility] Partial Thromboplast Time 2017-10-12 00:31:00* Test Item Value Reference Range Interpretation Comments Activated Partial Thromboplast Time (test code = 14675-7) 17.7 23.8-35.5 L [facility] ArlingtonProthrombin Jipa6982-31-47 00:31:00* Test Item Value Reference Range Interpretation Comments Prothrombin Time (test code = 5902-2) 12.5 11.9-14.5 [facility] ArlingtonProthromb Time International Ratio 2017-10-12 00:31:00* Test Item Value Reference Range Interpretation Comments Prothromb Time International Ratio (test code = 6301-6) 1.01 Oral Anticoagulant Therapy INR Values:1. Low Intensity Therapy 1.5 - 2.02 . Moderate Intensity Therapy 2.0 - 3.03. High Intensity Therapy(1) 2.5 - 3. 54. High Intensity Therapy(2) 3.0 - 4.05. Panic Value INR > 5.0 [facility] ArlingtonAct[facility] Partial Thromboplast Time 2017-10-12 00:31:00* Test Item Value Reference Range Interpretation Comments Activated Partial Thromboplast Time (test code = 10938-4) 17.7 23.8-35.5 L [facility] ArlingtonProthrombin Vvyp8935-87-95 00:31:00* Test Item Value Reference Range Interpretation Comments Prothrombin Time (test code = 5902-2) 12.5 11.9-14.5 [facility] ArlingtonProthromb Time International Ratio 2017-10-12 00:31:00* Test Item Value Reference Range Interpretation Comments Prothromb Time International Ratio (test code = 6301-6) 1.01 Oral Anticoagulant Therapy INR Values:1. Low Intensity Therapy 1.5 - 2.02 . Moderate Intensity Therapy 2.0 - 3.03. High Intensity Therapy(1) 2.5 - 3. 54. High Intensity Therapy(2) 3.0 - 4.05. Panic Value INR > 5.0 [facility] ArlingtonAct[facility] Partial Thromboplast Time 2017-10-12 00:31:00* Test Item Value Reference Range Interpretation Comments Activated Partial Thromboplast Time (test code = 83604-0) 17.7 23.8-35.5 L [facility] ArlingtonWhite Blood Focrf7363-68-87 00:19:00* Test Item Value Reference Range Interpretation Comments White Blood Count (test code = 6690-2) 6.20 4.8-10.8 [facility] ArlingtonRed Blood Quhzp8311-14-07 00:19:00* Test Item Value Reference Range Interpretation Comments Red Blood Count (test code = 789-8) 4.11 3.6-5.1 [facility] ArlingtonHemoglobin2018-03-22 00:19:00* Test Item Value Reference Range Interpretation Comments Hemoglobin (test code = 67546-9) 10.7 12.0-16.0 L [facility] ArlingtonHematocrit2018-03-22 00:19:00* Test Item Value Reference Range Interpretation Comments Hematocrit (test code = 4544-3) 35.7 34.2-44.1 [facility] ArlingtonMean Corpuscular Vmwsfg3566-64-00 00:19:00* Test Item Value Reference Range Interpretation Comments Mean Corpuscular Volume (test code = 787-2) 86.9 81-99 [facility] ArlingtonMean Corpuscular Zwoymqovzu2993-72-09 00:19:00* Test Item Value Reference Range Interpretation Comments Mean Corpuscular Hemoglobin (test code = 785-6) 26.0 28-32 L [facility] ArlingtonMean Corpuscular Hemoglobin Concent 2017-10-12 00:19:00* Test Item Value Reference Range Interpretation Comments Mean Corpuscular Hemoglobin Concent (test code = 786-4) 30.0 31-35 L [facility] ArlingtonRed Cell Distribution Kdtih1258-09-21 00:19:00* Test Item Value Reference Range Interpretation Comments Red Cell Distribution Width (test code = 09390-6) 15.1 11.7 -14.4 H [facility] ArlingtonPlatelet Gcymr7618-88-40 00:19:00* Test Item Value Reference Range Interpretation Comments Platelet Count (test code = 777-3) 186 140-360 [facility] ArlingtonNeutrophils (%) (Auto)2017-10-12 00:19:00 * Test Item Value Reference Range Interpretation Comments Neutrophils (%) (Auto) (test code = 90177-6) 65.3 38.7-80.0 [facility] ArlingtonLymphocytes (%) (Auto)2017-10-12 00:19:00 * Test Item Value Reference Range Interpretation Comments Lymphocytes (%) (Auto) (test code = 736-9) 24.5 18.0-39.1 [facility] ArlingtonMonocytes (%) (Auto)2017-10-12 00:19:00* Test Item Value Reference Range Interpretation Comments Monocytes (%) (Auto) (test code = 5905-5) 5.5 4.4-11.3 [facility] ArlingtonEosinophils (%) (Auto)2017-10-12 00:19:00 * Test Item Value Reference Range Interpretation Comments Eosinophils (%) (Auto) (test code = 713-8) 2.7 0.0-6.0 [facility] ArlingtonBasophils (%) (Auto)2017-10-12 00:19:00* Test Item Value Reference Range Interpretation Comments Basophils (%) (Auto) (test code = 706-2) 1.0 0.0-1.0 [facility] %2017-10-12 00:19:00* Test Item Value Reference Range Interpretation Comments IM GRANULOCYTES % (test code = IM GRANULOCYTES %) 1.0 0.0- 1.0 [facility]rophils # (Auto)2017-10-12 00:19:00* Test Item Value Reference Range Interpretation Comments Neutrophils # (Auto) (test code = 751-8) 4.1 2.1-6.9 [facility]Lymphocytes # (Auto)2017-10-12 00:19:00* Test Item Value Reference Range Interpretation Comments Lymphocytes # (Auto) (test code = 24271-7) 1.5 1.0-3.2 [facility] # (Auto)2017-10-12 00:19:00* Test Item Value Reference Range Interpretation Comments Monocytes # (Auto) (test code = 742-7) 0.3 0.2-0.8 [facility] # (Auto)2017-10-12 00:19:00* Test Item Value Reference Range Interpretation Comments Eosinophils # (Auto) (test code = 711-2) 0.2 0.0-0.4 [facility] # (Auto)2017-10-12 00:19:00* Test Item Value Reference Range Interpretation Comments Basophils # (Auto) (test code = 704-7) 0.1 0.0-0.1 [facility]Absolute Immature Granulocyte (auto 2017-10-12 00:19:00* Test Item Value Reference Range Interpretation Comments Absolute Immature Granulocyte (auto (joseph t code = Absolute Immature Granulocyte (auto) 0.06 0-0.1 [facility] Twfrd6616-56-24 00:19:00* Test Item Value Reference Range Interpretation Comments Urine Color (test code = 5778-6) YELLOW YELLOW [facility] Rtvsnvk7170-39-18 00:19:00* Test Item Value Reference Range Interpretation Comments Urine Clarity (test code = 64891-3) CLEAR CLEAR [facility] Specific Jrdzknr1692-80-09 00:19:00 * Test Item Value Reference Range Interpretation Comments Urine Specific [place] (test code = 5811-5) 1.020 1.010-1.02 5 [facility] uF7643-16-66 00:19:00* Test Item Value Reference Range Interpretation Comments Urine pH (test code = 62332-5) 5 5-7 [facility] Leukocyte Nlhvtijo9375-36-39 00:19:00* Test Item Value Reference Range Interpretation Comments Urine Leukocyte Esterase (test code = 5799-2) NEGATIVE NEGATIVE [facility] Inbiakt6508-24-57 00:19:00* Test Item Value Reference Range Interpretation Comments Urine Nitrite (test code = 87853-7) NEGATIVE NEGATIVE [facility] Zgkwlii3241-23-84 00:19:00* Test Item Value Reference Range Interpretation Comments Urine Protein (test code = 5804-0) NEGATIVE NEGATIVE [facility] Glucose (UA)2017-10-12 00:19:00* Test Item Value Reference Range Interpretation Comments Urine Glucose (UA) (test code = 2349-9) 3+ NEGATIVE H [facility] Auqystw4863-75-57 00:19:00* Test Item Value Reference Range Interpretation Comments Urine Ketones (test code = 96890-4) NEGATIVE NEGATIVE [facility] Mhabqdumaqlw6414-87-78 00:19:00* Test Item Value Reference Range Interpretation Comments Urine Urobilinogen (test code = 10551-0) 0.2 0.2-1 [facility] Fkxlmleex5170-69-14 00:19:00* Test Item Value Reference Range Interpretation Comments Urine Bilirubin (test code = 1978-6) NEGATIVE NEGATIVE [facility] Rmxrl1081-88-76 00:19:00* Test Item Value Reference Range Interpretation Comments Urine Blood (test code = 25631-2) 1+ NEGATIVE H [facility] ArlingtonWhite Blood Bztzm8654-82-15 00:19:00* Test Item Value Reference Range Interpretation Comments White Blood Count (test code = 6690-2) 6.20 4.8-10.8 [facility] Blood Vrdnc7950-94-02 00:19:00* Test Item Value Reference Range Interpretation Comments Red Blood Count (test code = 789-8) 4.11 3.6-5.1 [facility]emoglobin2018-03-22 00:19:00* Test Item Value Reference Range Interpretation Comments Hemoglobin (test code = 25565-3) 10.7 12.0-16.0 L [facility]Hematocrit2018-03-22 00:19:00* Test Item Value Reference Range Interpretation Comments Hematocrit (test code = 4544-3) 35.7 34.2-44.1 [facility]Mean Corpuscular Xrzxtn8822-02-24 00:19:00* Test Item Value Reference Range Interpretation Comments Mean Corpuscular Volume (test code = 787-2) 86.9 81-99 [facility] Corpuscular Yzfxvgfuvq2558-63-93 00:19:00* Test Item Value Reference Range Interpretation Comments Mean Corpuscular Hemoglobin (test code = 785-6) 26.0 28-32 L [facility]Mean Corpuscular Hemoglobin Concent 2017-10-12 00:19:00* Test Item Value Reference Range Interpretation Comments Mean Corpuscular Hemoglobin Concent (test code = 786-4) 30.0 31-35 L [facility] ArlingtonRed Cell Distribution Mffcn7168-19-39 00:19:00* Test Item Value Reference Range Interpretation Comments Red Cell Distribution Width (test code = 61648-9) 15.1 11.7 -14.4 H [facility] ArlingtonPlatelet Nlncy5364-53-85 00:19:00* Test Item Value Reference Range Interpretation Comments Platelet Count (test code = 777-3) 186 140-360 [facility]Neutrophils (%) (Auto)2017-10-12 00:19:00 * Test Item Value Reference Range Interpretation Comments Neutrophils (%) (Auto) (test code = 70201-2) 65.3 38.7-80.0 [facility]Lymphocytes (%) (Auto)2017-10-12 00:19:00 * Test Item Value Reference Range Interpretation Comments Lymphocytes (%) (Auto) (test code = 736-9) 24.5 18.0-39.1 [facility] (%) (Auto)2017-10-12 00:19:00* Test Item Value Reference Range Interpretation Comments Monocytes (%) (Auto) (test code = 5905-5) 5.5 4.4-11.3 [facility] (%) (Auto)2017-10-12 00:19:00 * Test Item Value Reference Range Interpretation Comments Eosinophils (%) (Auto) (test code = 713-8) 2.7 0.0-6.0 [facility] (%) (Auto)2017-10-12 00:19:00* Test Item Value Reference Range Interpretation Comments Basophils (%) (Auto) (test code = 706-2) 1.0 0.0-1.0 [facility]IM [facility]ANULOC[facility]TES %2017-10-12 00:19:00* Test Item Value Reference Range Interpretation Comments IM GRANULOCYTES % (test code = IM GRANULOCYTES %) 1.0 0.0- 1.0 [facility]Neutrophils # (Auto)2017-10-12 00:19:00* Test Item Value Reference Range Interpretation Comments Neutrophils # (Auto) (test code = 751-8) 4.1 2.1-6.9 [facility]Lymphocytes # (Auto)2017-10-12 00:19:00* Test Item Value Reference Range Interpretation Comments Lymphocytes # (Auto) (test code = 22173-4) 1.5 1.0-3.2 [facility]Mon[facility] # (Auto)2017-10-12 00:19:00* Test Item Value Reference Range Interpretation Comments Monocytes # (Auto) (test code = 742-7) 0.3 0.2-0.8 [facility]osin[facility] # (Auto)2017-10-12 00:19:00* Test Item Value Reference Range Interpretation Comments Eosinophils # (Auto) (test code = 711-2) 0.2 0.0-0.4 [facility] # (Auto)2017-10-12 00:19:00* Test Item Value Reference Range Interpretation Comments Basophils # (Auto) (test code = 704-7) 0.1 0.0-0.1 [facility] ArlingtonAbsolute Immature Granulocyte (auto 2017-10-12 00:19:00* Test Item Value Reference Range Interpretation Comments Absolute Immature Granulocyte (auto (joseph t code = Absolute Immature Granulocyte (auto) 0.06 0-0.1 [facility] ArlingtonU[facility] Bgwde6092-93-50 00:19:00* Test Item Value Reference Range Interpretation Comments Urine Color (test code = 5778-6) YELLOW YELLOW [facility] Czvfqto6464-30-40 00:19:00* Test Item Value Reference Range Interpretation Comments Urine Clarity (test code = 77023-2) CLEAR CLEAR [facility] Specific Fyplbun4958-84-40 00:19:00 * Test Item Value Reference Range Interpretation Comments Urine Specific [place] (test code = 5811-5) 1.020 1.010-1.02 5 [facility] ArlingtonU[facility] lU8864-83-74 00:19:00* Test Item Value Reference Range Interpretation Comments Urine pH (test code = 84660-2) 5 5-7 [facility] Leukocyte Fvuqsaom5196-71-18 00:19:00* Test Item Value Reference Range Interpretation Comments Urine Leukocyte Esterase (test code = 5799-2) NEGATIVE NEGATIVE [facility] Iqfhwkz8322-00-09 00:19:00* Test Item Value Reference Range Interpretation Comments Urine Nitrite (test code = 39512-2) NEGATIVE NEGATIVE [facility] Zpugezp4205-79-18 00:19:00* Test Item Value Reference Range Interpretation Comments Urine Protein (test code = 5804-0) NEGATIVE NEGATIVE [facility] Glucose (UA)2017-10-12 00:19:00* Test Item Value Reference Range Interpretation Comments Urine Glucose (UA) (test code = 2349-9) 3+ NEGATIVE H [facility] Nemgxbu9541-49-98 00:19:00* Test Item Value Reference Range Interpretation Comments Urine Ketones (test code = 75120-3) NEGATIVE NEGATIVE [facility] Oxbhfpjorpcd7192-23-44 00:19:00* Test Item Value Reference Range Interpretation Comments Urine Urobilinogen (test code = 11009-8) 0.2 0.2-1 [facility] Shmoslyxo7430-48-71 00:19:00* Test Item Value Reference Range Interpretation Comments Urine Bilirubin (test code = 1978-6) NEGATIVE NEGATIVE [facility] Rmmqp9863-89-72 00:19:00* Test Item Value Reference Range Interpretation Comments Urine Blood (test code = 55364-8) 1+ NEGATIVE H [facility] ArlingtonWhite Blood Gvxmy3411-76-42 00:19:00* Test Item Value Reference Range Interpretation Comments White Blood Count (test code = 6690-2) 6.20 4.8-10.8 [facility] ArlingtonRed Blood Fgphk4668-71-49 00:19:00* Test Item Value Reference Range Interpretation Comments Red Blood Count (test code = 789-8) 4.11 3.6-5.1 [facility]Hemoglobin2018-03-22 00:19:00* Test Item Value Reference Range Interpretation Comments Hemoglobin (test code = 11954-9) 10.7 12.0-16.0 L [facility] ArlingtonHematocrit2018-03-22 00:19:00* Test Item Value Reference Range Interpretation Comments Hematocrit (test code = 4544-3) 35.7 34.2-44.1 [facility] ArlingtonMean Corpuscular Cwwnyd0966-43-51 00:19:00* Test Item Value Reference Range Interpretation Comments Mean Corpuscular Volume (test code = 787-2) 86.9 81-99 [facility]Mean Corpuscular Kbxryacxlh3468-93-09 00:19:00* Test Item Value Reference Range Interpretation Comments Mean Corpuscular Hemoglobin (test code = 785-6) 26.0 28-32 L [facility] ArlingtonMean Corpuscular Hemoglobin Concent 2017-10-12 00:19:00* Test Item Value Reference Range Interpretation Comments Mean Corpuscular Hemoglobin Concent (test code = 786-4) 30.0 31-35 L [facility] ArlingtonRed Cell Distribution Ivkln5599-15-10 00:19:00* Test Item Value Reference Range Interpretation Comments Red Cell Distribution Width (test code = 35472-7) 15.1 11.7 -14.4 H [facility] ArlingtonPlatelet Ceass7155-33-60 00:19:00* Test Item Value Reference Range Interpretation Comments Platelet Count (test code = 777-3) 186 140-360 [facility] ArlingtonNeutrophils (%) (Auto)2017-10-12 00:19:00 * Test Item Value Reference Range Interpretation Comments Neutrophils (%) (Auto) (test code = 82460-3) 65.3 38.7-80.0 [facility] ArlingtonLymphocytes (%) (Auto)2017-10-12 00:19:00 * Test Item Value Reference Range Interpretation Comments Lymphocytes (%) (Auto) (test code = 736-9) 24.5 18.0-39.1 [facility] ArlingtonMonocytes (%) (Auto)2017-10-12 00:19:00* Test Item Value Reference Range Interpretation Comments Monocytes (%) (Auto) (test code = 5905-5) 5.5 4.4-11.3 [facility]osinophils (%) (Auto)2017-10-12 00:19:00 * Test Item Value Reference Range Interpretation Comments Eosinophils (%) (Auto) (test code = 713-8) 2.7 0.0-6.0 [facility] (%) (Auto)2017-10-12 00:19:00* Test Item Value Reference Range Interpretation Comments Basophils (%) (Auto) (test code = 706-2) 1.0 0.0-1.0 [facility]IM GRANULOCYTES %2017-10-12 00:19:00* Test Item Value Reference Range Interpretation Comments IM GRANULOCYTES % (test code = IM GRANULOCYTES %) 1.0 0.0- 1.0 [facility]Neutrophils # (Auto)2017-10-12 00:19:00* Test Item Value Reference Range Interpretation Comments Neutrophils # (Auto) (test code = 751-8) 4.1 2.1-6.9 [facility] ArlingtonLymphocytes # (Auto)2017-10-12 00:19:00* Test Item Value Reference Range Interpretation Comments Lymphocytes # (Auto) (test code = 73683-8) 1.5 1.0-3.2 [facility] ArlingtonMonocytes # (Auto)2017-10-12 00:19:00* Test Item Value Reference Range Interpretation Comments Monocytes # (Auto) (test code = 742-7) 0.3 0.2-0.8 [facility]Eosinophils # (Auto)2017-10-12 00:19:00* Test Item Value Reference Range Interpretation Comments Eosinophils # (Auto) (test code = 711-2) 0.2 0.0-0.4 [facility] # (Auto)2017-10-12 00:19:00* Test Item Value Reference Range Interpretation Comments Basophils # (Auto) (test code = 704-7) 0.1 0.0-0.1 [facility] ArlingtonAbsolute Immature Granulocyte (auto 2017-10-12 00:19:00* Test Item Value Reference Range Interpretation Comments Absolute Immature Granulocyte (auto (joseph t code = Absolute Immature Granulocyte (auto) 0.06 0-0.1 [facility] ArlingtonU[facility] Qhdhr8895-60-31 00:19:00* Test Item Value Reference Range Interpretation Comments Urine Color (test code = 5778-6) YELLOW YELLOW [facility] ArlingtonU[facility] Asymxrn7100-52-97 00:19:00* Test Item Value Reference Range Interpretation Comments Urine Clarity (test code = 61536-1) CLEAR CLEAR [facility] ArlingtonU[facility] Specific Rjbscap5523-12-71 00:19:00 * Test Item Value Reference Range Interpretation Comments Urine Specific [place] (test code = 5811-5) 1.020 1.010-1.02 5 [facility] ArlingtonU[facility] yV6379-33-34 00:19:00* Test Item Value Reference Range Interpretation Comments Urine pH (test code = 66232-0) 5 5-7 [facility] Leukocyte Mtngxnix1797-99-50 00:19:00* Test Item Value Reference Range Interpretation Comments Urine Leukocyte Esterase (test code = 5799-2) NEGATIVE NEGATIVE [facility] Arlington[facility] Bvdbaso8589-80-70 00:19:00* Test Item Value Reference Range Interpretation Comments Urine Nitrite (test code = 72066-0) NEGATIVE NEGATIVE [facility] Arlington[facility] Kropzke4683-42-26 00:19:00* Test Item Value Reference Range Interpretation Comments Urine Protein (test code = 5804-0) NEGATIVE NEGATIVE [facility] Arlington[facility] Glucose (UA)2017-10-12 00:19:00* Test Item Value Reference Range Interpretation Comments Urine Glucose (UA) (test code = 2349-9) 3+ NEGATIVE H [facility] ArlingtonU[facility] Ljfhmnb0806-53-25 00:19:00* Test Item Value Reference Range Interpretation Comments Urine Ketones (test code = 35622-3) NEGATIVE NEGATIVE [facility] Arlington[facility] Ltnhqweduifi4843-97-37 00:19:00* Test Item Value Reference Range Interpretation Comments Urine Urobilinogen (test code = 74950-1) 0.2 0.2-1 [facility] Pisxphfkc7901-79-40 00:19:00* Test Item Value Reference Range Interpretation Comments Urine Bilirubin (test code = 1978-6) NEGATIVE NEGATIVE [facility] Yvwzb4931-45-99 00:19:00* Test Item Value Reference Range Interpretation Comments Urine Blood (test code = 70932-9) 1+ [facility]GAT[facility] Pufuoxg9716-76-09 11:00:00* Test Item Value Reference Range Interpretation Comments Blood Culture (test code = 79337245) NO GROWTH AFTER 5 DAYS, FINAL REPORT [facility] Afacets5297-61-47 11:00:00* Test Item Value Reference Range Interpretation Comments Blood Culture (test code = 04717878) NO GROWTH AFTER 5 DAYS, FINAL REPORT [facility] Vqhcnox0887-45-07 12:28:00* Test Item Value Reference Range Interpretation Comments Bedside Glucose (test code = 41562-6) 113 70-120 Meter ID: [id number] [facility] Glucose 2017-09-29 12:28:00* Test Item Value Reference Range Interpretation Comments Bedside Glucose (test code = 49026-2) 113 70-120 Meter ID: [id number] [facility] Glucose 2017-09-29 12:28:00* Test Item Value Reference Range Interpretation Comments Bedside Glucose (test code = 72382-6) 113 70-120 Meter ID: [id number] [facility] Glucose 2017-09-29 12:28:00* Test Item Value Reference Range Interpretation Comments Bedside Glucose (test code = 37476-6) 113 70-120 Meter ID: [id number] Hospital at ArlingtonBedside Glucose 2017-09-29 12:28:00* Test Item Value Reference Range Interpretation Comments Bedside Glucose (test code = 28226-9) 113 70-120 Meter ID: [id number] [facility] Hospitalodium Level 2017-09-29 08:38:00* Test Item Value Reference Range Interpretation Comments Sodium Level (test code = 2951-2) 138 136-145 [facility]Potassium Tclnw8697-12-92 08:38:00* Test Item Value Reference Range Interpretation Comments Potassium Level (test code = 2823-3) 3.7 3.5-5.1 [facility] ArlingtonChloride Mnjdr5721-88-71 08:38:00* Test Item Value Reference Range Interpretation Comments Chloride Level (test code = 2075-0) 94 98-107 L [facility] ArlingtonCarbon Dioxide Xqqjz0197-07-97 08:38:00* Test Item Value Reference Range Interpretation Comments Carbon Dioxide Level (test code = 2028-9) 29 22-29 [facility] ArlingtonAnion Vzd4031-07-62 08:38:00* Test Item Value Reference Range Interpretation Comments Anion Gap (test code = 93990-1) 18.7 8-16 H [facility] ArlingtonBlood Urea Xuszxjvu0748-95-81 08:38:00* Test Item Value Reference Range Interpretation Comments Blood Urea Nitrogen (test code = 3094-0) 25 7-26 [facility] ArlingtonCreatinine2018 08:38:00* Test Item Value Reference Range Interpretation Comments Creatinine (test code = 2160-0) 1.00 0.57-1.11 [facility] ArlingtonBUN/Creatinine Cavpx8319-02-91 08:38:00* Test Item Value Reference Range Interpretation Comments BUN/Creatinine Ratio (test code = 3097-3) 25 6-25 [facility] ArlingtonEstimat Glomerular Filtration Rate 2017-09-29 08:38:00* Test Item Value Reference Range Interpretation Comments Estimat Glomerular Filtration Rate (test code = 18780-7) 56 >60 L Ranges were taken from the National Kidney Disease Education Program and the [facility] Kidney Foundation literature.Reference ranges:60 or greater: Mtlxmn81-84 ( for 3 consecutive months): Chronic kidney disease 15 or less: Kidney failureUSMD Hospital at ArlingtonGlucose Suuwz0928-74-53 08:38:00* Test Item Value Reference Range Interpretation Comments Glucose Level (test code = EAN8980) 290 74-118 H [facility] ArlingtonCalcium Qxacg7036-12-79 08:38:00* Test Item Value Reference Range Interpretation Comments Calcium Level (test code = 66262-0) 9.4 8.4-10.[address] [facility] Huzdr7142-02-39 08:38:00* Test Item Value Reference Range Interpretation Comments Sodium Level (test code = 2951-2) 138 136-145 [facility] ArlingtonPotassium Risgs0279-69-09 08:38:00* Test Item Value Reference Range Interpretation Comments Potassium Level (test code = 2823-3) 3.7 3.5-5.1 [facility] ArlingtonChloride Efpdq2733-82-04 08:38:00* Test Item Value Reference Range Interpretation Comments Chloride Level (test code = 2075-0) 94 98-107 L [facility] ArlingtonCarbon Dioxide Gezyz5715-10-74 08:38:00* Test Item Value Reference Range Interpretation Comments Carbon Dioxide Level (test code = 2028-9) 29 22-29 [facility] ArlingtonAnion Wvh1629-87-14 08:38:00* Test Item Value Reference Range Interpretation Comments Anion Gap (test code = 76048-2) 18.7 8-16 H [facility] ArlingtonBlood Urea Zgmcknjn1373-39-51 08:38:00* Test Item Value Reference Range Interpretation Comments Blood Urea Nitrogen (test code = 3094-0) 25 7-26 [facility] ArlingtonCreatinine2018 08:38:00* Test Item Value Reference Range Interpretation Comments Creatinine (test code = 2160-0) 1.00 0.57-1.11 [facility] ArlingtonBUN/Creatinine Dmzyt9388-28-53 08:38:00* Test Item Value Reference Range Interpretation Comments BUN/Creatinine Ratio (test code = 3097-3) 25 6-25 [facility] ArlingtonEstimat Glomerular Filtration Rate 2017-09-29 08:38:00* Test Item Value Reference Range Interpretation Comments Estimat Glomerular Filtration Rate (test code = 97246-3) 56 >60 L Ranges were taken from the National Kidney Disease Education Program and the [facility] Kidney Foundation literature.Reference ranges:60 or greater: Fhwqte07-06 ( for 3 consecutive months): Chronic kidney disease 15 or less: Kidney failureUSMD Hospital at ArlingtonGlucose Plykr6953-62-93 08:38:00* Test Item Value Reference Range Interpretation Comments Glucose Level (test code = WBY0662) 290 74-118 H [facility] ArlingtonCalcium Blpxo1010-15-49 08:38:00* Test Item Value Reference Range Interpretation Comments Calcium Level (test code = 16099-0) 9.4 8.4-10.2 [facility] ArlingtonArterial Blood vV8304-04-21 13:49:00* Test Item Value Reference Range Interpretation Comments Arterial Blood pH (test code = 2744-1) 7.46 7.31-7.41 H WAS CALLED TO RUN A BLOOD GAS FOR A PT ON ROOM AIR LAYING ON THE [employer] OFFICER TABLE [facility] Arlington[facility]ial Blood Partial Pressure CO2 2017-09-28 13:49:00* Test Item Value Reference Range Interpretation Comments Arterial Blood Partial Pressure CO2 (test code = 2018-) 46 41-51 [facility] Arlington[facility] Blood Partial Pressure O2 2017-09-28 13:49:00* Test Item Value Reference Range Interpretation Comments Arterial Blood Partial Pressure O2 (test code = 2018-) 30 80-105 LL Results called/hand delivered to DR CLINTON LLAMAS at 1328 on 09/28/17 by Mckayla reyna. [place].[facility] Arlington[facility]ial Blood HCO3 2017-09-28 13:49:00* Test Item Value Reference Range Interpretation Comments Arterial Blood HCO3 (test code = 1960-4) 33 23-28 H [facility] ArlingtonAr[facility]ial Blood Base Vofwsq7726-46-30 13:49:00* Test Item Value Reference Range Interpretation Comments Arterial Blood Base Excess (test code = 1925-7) 9.0 -2-3 H [facility] Arlington[facility] Blood Oxygen Saturation 2017-09-28 13:49:00* Test Item Value Reference Range Interpretation Comments Arterial Blood Oxygen Saturation (test code = 2708-6) 60.0 95-98 L [facility]Arterc[facility] Blood gO3303-55-39 13:49:00* Test Item Value Reference Range Interpretation Comments Arterial Blood pH (test code = 2744-1) 7.46 7.31-7.41 H WAS CALLED TO RUN A BLOOD GAS FOR A PT ON ROOM AIR LAYING ON THE [employer] OFFICER TABLE [facility] Blood Partial Pressure CO2 2017-09-28 13:49:00* Test Item Value Reference Range Interpretation Comments Arterial Blood Partial Pressure CO2 (test code = 2018-8) 46 41-51 [facility] Blood Partial Pressure O2 2017-09-28 13:49:00* Test Item Value Reference Range Interpretation Comments Arterial Blood Partial Pressure O2 (test code = 2018-8) 30 80-105 LL Results called/hand delivered to DR CLINTON LLAMAS at 1328 on 09/28/17 by Mckayla reyna. [place].[facility] Blood HCO3 2017-09-28 13:49:00* Test Item Value Reference Range Interpretation Comments Arterial Blood HCO3 (test code = 1960-4) 33 23-28 H [facility] ArlingtonAr[facility] Blood Base Dtiqty5582-35-76 13:49:00* Test Item Value Reference Range Interpretation Comments Arterial Blood Base Excess (test code = 1925-7) 9.0 -2-3 H [facility] Arlington[facility] Blood Oxygen Saturation 2017-09-28 13:49:00* Test Item Value Reference Range Interpretation Comments Arterial Blood Oxygen Saturation (test code = 2708-6) 60.0 95-98 L [facility]Arterc[facility] Blood sM5357-76-02 13:49:00* Test Item Value Reference Range Interpretation Comments Arterial Blood pH (test code = 2744-1) 7.46 7.31-7.41 H WAS CALLED TO RUN A BLOOD GAS FOR A PT ON ROOM AIR LAYING ON THE [employer] OFFICER TABLE [facility] ArlingtonAr[facility] Blood Partial Pressure CO2 2017-09-28 13:49:00* Test Item Value Reference Range Interpretation Comments Arterial Blood Partial Pressure CO2 (test code = 2019-02) 46 41-51 [facility] O2 2017-09-28 13:49:00* Test Item Value Reference Range Interpretation Comments Arterial Blood Partial Pressure O2 (test code = 2019-02) 30 80-105 LL Results called/hand delivered to DR CLINTON LLAMAS at 1328 on 09/28/17 by Mckayla reyna. [place].[facility] HCO3 2017-09-28 13:49:00* Test Item Value Reference Range Interpretation Comments Arterial Blood HCO3 (test code = 1960-4) 33 23-28 H [facility] Base [id number] 13:49:00* Test Item Value Reference Range Interpretation Comments Arterial Blood Base Excess (test code = 1925-7) 9.0 -2-3 H [facility] Oxygen Saturation 2017-09-28 13:49:00* Test Item Value Reference Range Interpretation Comments Arterial Blood Oxygen Saturation (test code = 2708-6) 60.0 95-98 L [facility] [id number] 13:49:00* Test Item Value Reference Range Interpretation Comments Arterial Blood pH (test code = 2744-1) 7.46 7.31-7.41 H WAS CALLED TO RUN A BLOOD GAS FOR A PT ON ROOM AIR LAYING ON THE [employer] OFFICER TABLE [facility] CO2 2017-09-28 13:49:00* Test Item Value Reference Range Interpretation Comments Arterial Blood Partial Pressure CO2 (test code = 2019-02) 46 41-51 [facility] Pressure O2 2017-09-28 13:49:00* Test Item Value Reference Range Interpretation Comments Arterial Blood Partial Pressure O2 (test code = 2019-02) 30 80-105 LL Results called/hand delivered to DR CLINTON LLAMAS at 1328 on 09/28/17 by Mckayla reyna. [place].[facility] HCO3 2017-09-28 13:49:00* Test Item Value Reference Range Interpretation Comments Arterial Blood HCO3 (test code = 1960-4) 33 23-28 H [facility] Base [id number] 13:49:00* Test Item Value Reference Range Interpretation Comments Arterial Blood Base Excess (test code = 1925-7) 9.0 -2-3 H [facility] Oxygen Saturation 2017-09-28 13:49:00* Test Item Value Reference Range Interpretation Comments Arterial Blood Oxygen Saturation (test code = 2708-6) 60.0 95-98 L [facility] Blood [id number] 13:49:00* Test Item Value Reference Range Interpretation Comments Arterial Blood pH (test code = 2744-1) 7.46 7.31-7.41 H WAS CALLED TO RUN A BLOOD GAS FOR A PT ON ROOM AIR LAYING ON THE [employer] OFFICER TABLE [facility] Pressure CO2 2017-09-28 13:49:00* Test Item Value Reference Range Interpretation Comments Arterial Blood Partial Pressure CO2 (test code = 2018-8) 46 41-51 [facility] Pressure O2 2017-09-28 13:49:00* Test Item Value Reference Range Interpretation Comments Arterial Blood Partial Pressure O2 (test code = 2018-8) 30 80-105 LL Results called/hand delivered to DR CLINTON LLAMAS at 1328 on 09/28/17 by Mckayla reyna. [place].[facility] HCO3 2017-09-28 13:49:00* Test Item Value Reference Range Interpretation Comments Arterial Blood HCO3 (test code = 1960-4) 33 23-28 H [facility] Base [id number] 13:49:00* Test Item Value Reference Range Interpretation Comments Arterial Blood Base Excess (test code = 1925-7) 9.0 -2-3 H [facility] Oxygen Saturation 2017-09-28 13:49:00* Test Item Value Reference Range Interpretation Comments Arterial Blood Oxygen Saturation (test code = 2708-6) 60.0 95-98 L [facility] Blood [id number] 13:49:00* Test Item Value Reference Range Interpretation Comments Arterial Blood pH (test code = 2744-1) 7.46 7.31-7.41 H WAS CALLED TO RUN A BLOOD GAS FOR A PT ON ROOM AIR LAYING ON THE [employer] OFFICER TABLE [facility] Pressure CO2 2017-09-28 13:49:00* Test Item Value Reference Range Interpretation Comments Arterial Blood Partial Pressure CO2 (test code = 2019-02) 46 41-51 [facility] Partial Pressure O2 2017-09-28 13:49:00* Test Item Value Reference Range Interpretation Comments Arterial Blood Partial Pressure O2 (test code = 2019-02) 30 80-105 LL Results called/hand delivered to DR CLINTON LLAMAS at 1328 on 09/28/17 by Mckayla reyna. [place].[facility] HCO3 2017-09-28 13:49:00* Test Item Value Reference Range Interpretation Comments Arterial Blood HCO3 (test code = 1960-4) 33 23-[address] [facility] [id number] 13:49:00* Test Item Value Reference Range Interpretation Comments Arterial Blood Base Excess (test code = 1925-7) 9.0 -2-3 H [facility] Oxygen Saturation 2017-09-28 13:49:00* Test Item Value Reference Range Interpretation Comments Arterial Blood Oxygen Saturation (test code = 2708-6) 60.0 95-98 L [facility] [id number] 13:49:00* Test Item Value Reference Range Interpretation Comments Arterial Blood pH (test code = 2744-1) 7.46 7.31-7.41 H WAS CALLED TO RUN A BLOOD GAS FOR A PT ON ROOM AIR LAYING ON THE [employer] OFFICER TABLE [facility] Partial Pressure CO2 2017-09-28 13:49:00* Test Item Value Reference Range Interpretation Comments Arterial Blood Partial Pressure CO2 (test code = 2019-8) 46 41-51 [facility] Partial Pressure O2 2017-09-28 13:49:00* Test Item Value Reference Range Interpretation Comments Arterial Blood Partial Pressure O2 (test code = 2018-) 30 80-105 LL Results called/hand delivered to DR CLINTON LLAMAS at 1328 on 09/28/17 by Mckayla reyna. [place].[facility] HCO3 2017-09-28 13:49:00* Test Item Value Reference Range Interpretation Comments Arterial Blood HCO3 (test code = 1960-4) 33 23-28 H [facility] Base [id number] 13:49:00* Test Item Value Reference Range Interpretation Comments Arterial Blood Base Excess (test code = 1925-7) 9.0 -2-3 H [facility] Oxygen Saturation 2017-09-28 13:49:00* Test Item Value Reference Range Interpretation Comments Arterial Blood Oxygen Saturation (test code = 2708-6) 60.0 95-98 L [facility] [id number] 13:49:00* Test Item Value Reference Range Interpretation Comments Arterial Blood pH (test code = 2744-1) 7.46 7.31-7.41 H WAS CALLED TO RUN A BLOOD GAS FOR A PT ON ROOM AIR LAYING ON THE [employer] OFFICER TABLE [facility] Partial Pressure CO2 2017-09-28 13:49:00* Test Item Value Reference Range Interpretation Comments Arterial Blood Partial Pressure CO2 (test code = 2018-8) 46 41-51 [facility] Partial Pressure O2 2017-09-28 13:49:00* Test Item Value Reference Range Interpretation Comments Arterial Blood Partial Pressure O2 (test code = 2019-02) 30 80-105 LL Results called/hand delivered to DR CLINTON LLAMAS at 1328 on 09/28/17 by Mckayla reyna. [place].[facility] HCO3 2017-09-28 13:49:00* Test Item Value Reference Range Interpretation Comments Arterial Blood HCO3 (test code = 1960-4) 33 23-28 H [facility] Base [id number] 13:49:00* Test Item Value Reference Range Interpretation Comments Arterial Blood Base Excess (test code = 1925-7) 9.0 -2-3 H [facility] Oxygen Saturation 2017-09-28 13:49:00* Test Item Value Reference Range Interpretation Comments Arterial Blood Oxygen Saturation (test code = 2708-6) 60.0 95-98 L [facility] [id number] 13:49:00* Test Item Value Reference Range Interpretation Comments Arterial Blood pH (test code = 2744-1) 7.46 7.31-7.41 H WAS CALLED TO RUN A BLOOD GAS FOR A PT ON ROOM AIR LAYING ON THE [employer] OFFICER TABLE [facility] Partial Pressure CO2 2017-09-28 13:49:00* Test Item Value Reference Range Interpretation Comments Arterial Blood Partial Pressure CO2 (test code = 2018-8) 46 41-51 [facility] Partial Pressure O2 2017-09-28 13:49:00* Test Item Value Reference Range Interpretation Comments Arterial Blood Partial Pressure O2 (test code = 2018-8) 30 80-105 LL Results called/hand delivered to DR CLINTON LLAMAS at 1328 on 09/28/17 by Mckayla reyna. [place].[facility] HCO3 2017-09-28 13:49:00* Test Item Value Reference Range Interpretation Comments Arterial Blood HCO3 (test code = 1960-4) 33 23-28 H [facility] Base [id number] 13:49:00* Test Item Value Reference Range Interpretation Comments Arterial Blood Base Excess (test code = 1925-7) 9.0 -2-3 H [facility] Oxygen Saturation 2017-09-28 13:49:00* Test Item Value Reference Range Interpretation Comments Arterial Blood Oxygen Saturation (test code = 2708-6) 60.0 95-98 L [facility] Blood [id number] 13:49:00* Test Item Value Reference Range Interpretation Comments Arterial Blood pH (test code = 2744-1) 7.46 7.31-7.41 H WAS CALLED TO RUN A BLOOD GAS FOR A PT ON ROOM AIR LAYING ON THE [employer] OFFICER TABLE [facility] Partial Pressure CO2 2017-09-28 13:49:00* Test Item Value Reference Range Interpretation Comments Arterial Blood Partial Pressure CO2 (test code = 2019-02) 46 41-51 [facility] Partial Pressure O2 2017-09-28 13:49:00* Test Item Value Reference Range Interpretation Comments Arterial Blood Partial Pressure O2 (test code = 2019-02) 30 80-105 LL Results called/hand delivered to DR CLINTON LLAMAS at 1328 on 09/28/17 by Mckayla reyna. [place].[facility] HCO3 2017-09-28 13:49:00* Test Item Value Reference Range Interpretation Comments Arterial Blood HCO3 (test code = 1960-4) 33 23-28 H [facility] Base [id number] 13:49:00* Test Item Value Reference Range Interpretation Comments Arterial Blood Base Excess (test code = 1925-7) 9.0 -2-3 H [facility] Oxygen Saturation 2017-09-28 13:49:00* Test Item Value Reference Range Interpretation Comments Arterial Blood Oxygen Saturation (test code = 2708-6) 60.0 95-98 L [facility] [id number] 13:49:00* Test Item Value Reference Range Interpretation Comments Arterial Blood pH (test code = 2744-1) 7.46 7.31-7.41 H WAS CALLED TO RUN A BLOOD GAS FOR A PT ON ROOM AIR LAYING ON THE B[employer] SERVICES OFFICER TABLE [facility] Partial Pressure CO2 2017-09-28 13:49:00* Test Item Value Reference Range Interpretation Comments Arterial Blood Partial Pressure CO2 (test code = 2019-02) 46 41-51 [facility] Partial Pressure O2 2017-09-28 13:49:00* Test Item Value Reference Range Interpretation Comments Arterial Blood Partial Pressure O2 (test code = 2019-02) 30 80-105 LL Results called/hand delivered to DR CLINTON LLAMAS at 1328 on 09/28/17 by Mckayla reyna. [place].[facility] HCO3 2017-09-28 13:49:00* Test Item Value Reference Range Interpretation Comments Arterial Blood HCO3 (test code = 1960-4) 33 23-28 H [facility] Base [id number] 13:49:00* Test Item Value Reference Range Interpretation Comments Arterial Blood Base Excess (test code = 1925-7) 9.0 -2-3 H [facility] Oxygen Saturation 2017-09-28 13:49:00* Test Item Value Reference Range Interpretation Comments Arterial Blood Oxygen Saturation (test code = 2708-6) 60.0 95-98 L [facility] [id number] 11:00:00* Test Item Value Reference Range Interpretation Comments Blood Culture (test code = 96062357) NO GROWTH AFTER 72 HOURS [facility] Arlington[facility] Kinase [id number] 07:21:00* Test Item Value Reference Range Interpretation Comments Creatine Kinase MB (test code = 59531-3) 1.40 0-5.0 [facility]roponin [id number] 07:21:00* Test Item Value Reference Range Interpretation Comments Troponin I (test code = GYX8983) -0.001 0-0.300 [facility] Kinase [id number] 07:21:00* Test Item Value Reference Range Interpretation Comments Creatine Kinase MB (test code = 55637-7) 1.40 0-5.0 [facility] ArlingtonTroponin [id number] 07:21:00* Test Item Value Reference Range Interpretation Comments Troponin I (test code = LDL1543) -0.001 0-0.300 [facility] ArlingtonCreatine [id number] 07:19:00* Test Item Value Reference Range Interpretation Comments Creatine Kinase (test code = 2157-6) 67 29-168 [facility] [id number] 07:19:00* Test Item Value Reference Range Interpretation Comments Creatine Kinase (test code = 2157-6) 67 29-168 [facility] Arlington[facility] Blood Agwib7608-55-15 07:00:00* Test Item Value Reference Range Interpretation Comments White Blood Count (test code = 6690-2) 8.36 4.8-10.8 [facility] Blood [id number] 07:00:00* Test Item Value Reference Range Interpretation Comments Red Blood Count (test code = 789-8) 4.13 3.6-5.1 [facility]emoglobin2018-03-06 07:00:00* Test Item Value Reference Range Interpretation Comments Hemoglobin (test code = 08087-7) 10.9 12.0-16.0 L [facility]ematocrit2018-03-06 07:00:00* Test Item Value Reference Range Interpretation Comments Hematocrit (test code = 4544-3) 35.0 34.2-44.1 [facility] Corpuscular [id number] 07:00:00* Test Item Value Reference Range Interpretation Comments Mean Corpuscular Volume (test code = 787-2) 84.7 81-99 [facility] Corpuscular Eiqsfjnhup5416-76-10 07:00:00* Test Item Value Reference Range Interpretation Comments Mean Corpuscular Hemoglobin (test code = 785-6) 26.4 28-32 L [facility] Corpuscular Hemoglobin Concent 2017-09-26 07:00:00* Test Item Value Reference Range Interpretation Comments Mean Corpuscular Hemoglobin Concent (test code = 786-4) 31.1 31-35 [facility] Arlington[facility] Cell Distribution [id number] 07:00:00* Test Item Value Reference Range Interpretation Comments Red Cell Distribution Width (test code = 06040-0) 15.1 11.7 -14.4 H [facility] ArlingtonPlatelet [id number] 07:00:00* Test Item Value Reference Range Interpretation Comments Platelet Count (test code = 777-3) 223 140360 [facility]utrophils (%) (Auto)2017-09-26 07:00:00 * Test Item Value Reference Range Interpretation Comments Neutrophils (%) (Auto) (test code = 49016-4) 80.9 38.7-80.0 H [facility]ymphocytes (%) (Auto)2017-09-26 07:00:00 * Test Item Value Reference Range Interpretation Comments Lymphocytes (%) (Auto) (test code = 736-9) 12.3 18.0-39.1 L [facility]ocytes (%) (Auto)2017-09-26 07:00:00* Test Item Value Reference Range Interpretation Comments Monocytes (%) (Auto) (test code = 5905-5) 5.1 4.4-11.3 [facility] (%) (Auto)2017-09-26 07:00:00 * Test Item Value Reference Range Interpretation Comments Eosinophils (%) (Auto) (test code = 713-8) 0.0 0.0-6.0 [facility] (%) (Auto)2017-09-26 07:00:00* Test Item Value Reference Range Interpretation Comments Basophils (%) (Auto) (test code = 706-2) 0.4 0.0-1.0 [facility]IM [facility]ANULOCYTES %2017-09-26 07:00:00* Test Item Value Reference Range Interpretation Comments IM GRANULOCYTES % (test code = IM GRANULOCYTES %) 1.3 0.0- 1.0 H [facility] ArlingtonNeutrophils # (Auto)2017-09-26 07:00:00* Test Item Value Reference Range Interpretation Comments Neutrophils # (Auto) (test code = 751-8) 6.8 2.1-6.9 [facility]Lymphocytes # (Auto)2017-09-26 07:00:00* Test Item Value Reference Range Interpretation Comments Lymphocytes # (Auto) (test code = 68632-4) 1.0 1.0-3.2 [facility] # (Auto)2017-09-26 07:00:00* Test Item Value Reference Range Interpretation Comments Monocytes # (Auto) (test code = 742-7) 0.4 0.2-0.8 [facility]osin[facility] # (Auto)2017-09-26 07:00:00* Test Item Value Reference Range Interpretation Comments Eosinophils # (Auto) (test code = 711-2) 0.0 0.0-0.4 [facility] # (Auto)2017-09-26 07:00:00* Test Item Value Reference Range Interpretation Comments Basophils # (Auto) (test code = 704-7) 0.0 0.0-0.1 [facility] ArlingtonAbsolute Immature Granulocyte (auto 2017-09-26 07:00:00* Test Item Value Reference Range Interpretation Comments Absolute Immature Granulocyte (auto (joseph t code = Absolute Immature Granulocyte (auto) 0.11 0-0.1 H [facility] Blood Pucrh4332-03-14 07:00:00* Test Item Value Reference Range Interpretation Comments White Blood Count (test code = 6690-2) 8.36 4.8-10.8 [facility] Blood [id number] 07:00:00* Test Item Value Reference Range Interpretation Comments Red Blood Count (test code = 789-8) 4.13 3.6-5.1 [facility]oglobin2018-03-06 07:00:00* Test Item Value Reference Range Interpretation Comments Hemoglobin (test code = 94297-6) 10.9 12.0-16.0 L [facility]ematocrit2018-03-06 07:00:00* Test Item Value Reference Range Interpretation Comments Hematocrit (test code = 4544-3) 35.0 34.2-44.1 [facility]Mean Corpuscular Agzzlw1113-08-04 07:00:00* Test Item Value Reference Range Interpretation Comments Mean Corpuscular Volume (test code = 787-2) 84.7 81-99 [facility]Mean Corpuscular Jeslwakzzp5641-71-53 07:00:00* Test Item Value Reference Range Interpretation Comments Mean Corpuscular Hemoglobin (test code = 785-6) 26.4 28-32 L [facility]Mean Corpuscular Hemoglobin Concent 2017-09-26 07:00:00* Test Item Value Reference Range Interpretation Comments Mean Corpuscular Hemoglobin Concent (test code = 786-4) 31.1 31-35 [facility] ArlingtonRed Cell Distribution Gmeaq0434-81-37 07:00:00* Test Item Value Reference Range Interpretation Comments Red Cell Distribution Width (test code = 08425-2) 15.1 11.7 -14.4 H [facility] ArlingtonPl[facility]let Nqjtf8533-88-49 07:00:00* Test Item Value Reference Range Interpretation Comments Platelet Count (test code = 777-3) 223 140-360 [facility]Ne[facility]ils (%) (Auto)2017-09-26 07:00:00 * Test Item Value Reference Range Interpretation Comments Neutrophils (%) (Auto) (test code = 30400-8) 80.9 38.7-80.0 H [facility]Lymphocytes (%) (Auto)2017-09-26 07:00:00 * Test Item Value Reference Range Interpretation Comments Lymphocytes (%) (Auto) (test code = 736-9) 12.3 18.0-39.1 L [facility] (%) (Auto)2017-09-26 07:00:00* Test Item Value Reference Range Interpretation Comments Monocytes (%) (Auto) (test code = 5905-5) 5.1 4.4-11.3 [facility]osin[facility] (%) (Auto)2017-09-26 07:00:00 * Test Item Value Reference Range Interpretation Comments Eosinophils (%) (Auto) (test code = 713-8) 0.0 0.0-6.0 [facility] (%) (Auto)2017-09-26 07:00:00* Test Item Value Reference Range Interpretation Comments Basophils (%) (Auto) (test code = 706-2) 0.4 0.0-1.0 [facility]IM [facility]ULOC[facility]TES %2017-09-26 07:00:00* Test Item Value Reference Range Interpretation Comments IM GRANULOCYTES % (test code = IM GRANULOCYTES %) 1.3 0.0- 1.0 H [facility]Neutrophils # (Auto)2017-09-26 07:00:00* Test Item Value Reference Range Interpretation Comments Neutrophils # (Auto) (test code = 751-8) 6.8 2.1-6.9 [facility]Lymphocytes # (Auto)2017-09-26 07:00:00* Test Item Value Reference Range Interpretation Comments Lymphocytes # (Auto) (test code = 20815-2) 1.0 1.0-3.2 [facility] # (Auto)2017-09-26 07:00:00* Test Item Value Reference Range Interpretation Comments Monocytes # (Auto) (test code = 742-7) 0.4 0.2-0.8 [facility]osin[facility] # (Auto)2017-09-26 07:00:00* Test Item Value Reference Range Interpretation Comments Eosinophils # (Auto) (test code = 711-2) 0.0 0.0-0.4 [facility] # (Auto)2017-09-26 07:00:00* Test Item Value Reference Range Interpretation Comments Basophils # (Auto) (test code = 704-7) 0.0 0.0-0.1 [facility] ArlingtonAbsolute Immature Granulocyte (auto 2017-09-26 07:00:00* Test Item Value Reference Range Interpretation Comments Absolute Immature Granulocyte (auto (joseph t code = Absolute Immature Granulocyte (auto) 0.11 0-0.1 H [facility] ArlingtonProthrombin [id number] 11:58:00* Test Item Value Reference Range Interpretation Comments Prothrombin Time (test code = 5902-2) 13.2 11.9-14.5 [facility] ArlingtonProthromb Time International Ratio 2017-09-25 11:58:00* Test Item Value Reference Range Interpretation Comments Prothromb Time International Ratio (test code = 6301-6) 1.08 Oral Anticoagulant Therapy INR Values:1. Low Intensity Therapy 1.5 - 2.02 . Moderate Intensity Therapy 2.0 - 3.03. High Intensity Therapy(1) 2.5 - 3. 54. High Intensity Therapy(2) 3.0 - 4.05. Panic Value INR > 5.0 [facility] ArlingtonAct[facility] Partial Thromboplast Time 2017-09-25 11:58:00* Test Item Value Reference Range Interpretation Comments Activated Partial Thromboplast Time (test code = 35466-8) 23.7 23.8-35.5 L [facility] Arlington[facility] Natriuretic Aqzbseq2333-00-11 11:58:00* Test Item Value Reference Range Interpretation Comments B-Type Natriuretic Peptide (test code = 69113-4) 77.1 0-100 [facility] ArlingtonProthrombin [id number] 11:58:00* Test Item Value Reference Range Interpretation Comments Prothrombin Time (test code = 5902-2) 13.2 11.9-14.5 [facility]Pro[facility] Time International Ratio 2017-09-25 11:58:00* Test Item Value Reference Range Interpretation Comments Prothromb Time International Ratio (test code = 6301-6) 1.08 Oral Anticoagulant Therapy INR Values:1. Low Intensity Therapy 1.5 - 2.02 . Moderate Intensity Therapy 2.0 - 3.03. High Intensity Therapy(1) 2.5 - 3. 54. High Intensity Therapy(2) 3.0 - 4.05. Panic Value INR > 5.0 [facility] Partial Thromboplast Time 2017-09-25 11:58:00* Test Item Value Reference Range Interpretation Comments Activated Partial Thromboplast Time (test code = 53578-9) 23.7 23.8-35.5 L [facility] Natriuretic Tmeppht4829-24-67 11:58:00* Test Item Value Reference Range Interpretation Comments B-Type Natriuretic Peptide (test code = 96823-4) 77.1 0-100 [facility] ArlingtonInfluenza Virus Types A,B Antigen 2017-09-25 11:57:00* Test Item Value Reference Range Interpretation Comments Influenza Virus Types A,B Antigen (test code = 40211-5) NEGATIVE NEGATIVE [facility] ArlingtonInfluenza Virus Types A,B Antigen 2017-09-25 11:57:00* Test Item Value Reference Range Interpretation Comments Influenza Virus Types A,B Antigen (test code = 69836-2) NEGATIVE NEGATIVE [facility] ArlingtonInfluenza Virus Types A,B Antigen 2017-09-25 11:57:00* Test Item Value Reference Range Interpretation Comments Influenza Virus Types A,B Antigen (test code = 73553-8) NEGATIVE NEGATIVE [facility] ArlingtonInflu[facility] Virus Types A,B Antigen 2017-09-25 11:57:00* Test Item Value Reference Range Interpretation Comments Influenza Virus Types A,B Antigen (test code = 29500-9) NEGATIVE NEGATIVE [facility] ArlingtonInflu[facility] Virus Types A,B Antigen 2017-09-25 11:57:00* Test Item Value Reference Range Interpretation Comments Influenza Virus Types A,B Antigen (test code = 15045-1) NEGATIVE NEGATIVE [facility] ArlingtonInfluenza Virus Types A,B Antigen 2017-09-25 11:57:00* Test Item Value Reference Range Interpretation Comments Influenza Virus Types A,B Antigen (test code = 97008-1) NEGATIVE NEGATIVE [facility] [place]Influenza Virus Types A,B Antigen 2017-09-25 11:57:00* Test Item Value Reference Range Interpretation Comments Influenza Virus Types A,B Antigen (test code = 81603-1) [facility]GAT[facility]GATIVE [facility] Virus [facility] A,B Antigen 2017-09-25 11:57:00* Test Item Value Reference Range Interpretation Comments Influenza Virus Types A,B Antigen (test code = 92941-2) NEGATIVE NEGATIVE [facility]Influ[facility] Virus Types A,B Antigen 2017-09-25 11:57:00* Test Item Value Reference Range Interpretation Comments Influenza Virus Types A,B Antigen (test code = 16251-2) NEGATIVE NEGATIVE [facility] Virus Types A,B Antigen 2017-09-25 11:57:00* Test Item Value Reference Range Interpretation Comments Influenza Virus Types A,B Antigen (test code = 88317-7) NEGATIVE NEGATIVE [facility] Virus Types A,B Antigen 2017-09-25 11:57:00* Test Item Value Reference Range Interpretation Comments Influenza Virus Types A,B Antigen (test code = 82683-6) NEGATIVE NEGATIVE [facility] ArlingtonU[facility] IUZ8304-01-82 11:55:00* Test Item Value Reference Range Interpretation Comments Urine WBC (test code = 5821-4) NONE 0-5 [facility] DRJ0662-47-57 11:55:00* Test Item Value Reference Range Interpretation Comments Urine RBC (test code = 12592-5) NONE 0-5 [facility] Dgbwgrkp2850-06-90 11:55:00* Test Item Value Reference Range Interpretation Comments Urine Bacteria (test code = 50717-7) NONE NONE [facility] Epithelial Znudv0368-69-92 11:55:00 * Test Item Value Reference Range Interpretation Comments Urine Epithelial Cells (test code = 86514-5) RARE NONE [facility] Arlington[facility] CMW5236-48-92 11:55:00* Test Item Value Reference Range Interpretation Comments Urine WBC (test code = 5821-4) NONE 0-5 [facility] Arlington[facility] EGV8366-70-32 11:55:00* Test Item Value Reference Range Interpretation Comments Urine RBC (test code = 55898-6) NONE 0-5 [facility] Qedzdheb9671-51-69 11:55:00* Test Item Value Reference Range Interpretation Comments Urine Bacteria (test code = 68918-0) NONE NONE [facility] Epithelial Zngij4214-29-12 11:55:00 * Test Item Value Reference Range Interpretation Comments Urine Epithelial Cells (test code = 51150-1) RARE NONE [facility] ArlingtonThyroid Stimulating Hormone (TSH) 2017-09-25 11:50:00* Test Item Value Reference Range Interpretation Comments Thyroid Stimulating Hormone (TSH) (test code = 84975-1) 0.515 0.350-4.940 [facility]ulating Hormone (TSH) 2017-09-25 11:50:00* Test Item Value Reference Range Interpretation Comments Thyroid Stimulating Hormone (TSH) (test code = 98249-2) 0.515 0.350-4.940 [facility]ulating H[facility]one (TSH) 2017-09-25 11:50:00* Test Item Value Reference Range Interpretation Comments Thyroid Stimulating Hormone (TSH) (test code = 50621-7) 0.515 0.350-4.940 [facility] Stimulating Hormone (TSH) 2017-09-25 11:50:00* Test Item Value Reference Range Interpretation Comments Thyroid Stimulating Hormone (TSH) (test code = 03350-3) 0.515 0.350-4.940 [facility] ArlingtonTh[facility]roid Stimulating Hormone (TSH) 2017-09-25 11:50:00* Test Item Value Reference Range Interpretation Comments Thyroid Stimulating Hormone (TSH) (test code = 56673-4) 0.515 0.350-4.940 [facility] ArlingtonU[facility] Ynnoh5043-51-86 11:45:00* Test Item Value Reference Range Interpretation Comments Urine Color (test code = 5778-6) COLORLESS YELLOW [facility] Arlington[facility] Wvdxbhu9783-33-75 11:45:00* Test Item Value Reference Range Interpretation Comments Urine Clarity (test code = 01847-8) CLEAR CLEAR [facility] ArlingtonU[facility] Specific Idbmkte2657-00-41 11:45:00 * Test Item Value Reference Range Interpretation Comments Urine Specific [place] (test code = 5811-5) 1.010 1.010-1.02 5 [facility] xA6480-55-36 11:45:00* Test Item Value Reference Range Interpretation Comments Urine pH (test code = 12483-8) 6 5-7 [facility] Leukocyte Xakwyppt8212-22-46 11:45:00* Test Item Value Reference Range Interpretation Comments Urine Leukocyte Esterase (test code = 5799-2) NEGATIVE NEGATIVE [facility] Arlington[facility] Lfzvfzt3777-66-13 11:45:00* Test Item Value Reference Range Interpretation Comments Urine Nitrite (test code = 15495-5) NEGATIVE NEGATIVE [facility] Arlington[facility] Bnpxmah7823-61-06 11:45:00* Test Item Value Reference Range Interpretation Comments Urine Protein (test code = 5804-0) NEGATIVE NEGATIVE [facility] Arlington[facility] Glucose (UA)2017-09-25 11:45:00* Test Item Value Reference Range Interpretation Comments Urine Glucose (UA) (test code = 2349-9) NEGATIVE NEGATIVE [facility] ArlingtonU[facility] Zxdclvs6880-36-92 11:45:00* Test Item Value Reference Range Interpretation Comments Urine Ketones (test code = 22514-5) NEGATIVE NEGATIVE [facility] Arlington[facility] Vxknxubcdolv1682-80-27 11:45:00* Test Item Value Reference Range Interpretation Comments Urine Urobilinogen (test code = 05222-7) 0.2 0.2-1 [facility] Iltwtgfcg5563-07-15 11:45:00* Test Item Value Reference Range Interpretation Comments Urine Bilirubin (test code = 1978-6) NEGATIVE NEGATIVE [facility] Arlington[facility] Pagsk7764-20-41 11:45:00* Test Item Value Reference Range Interpretation Comments Urine Blood (test code = 68739-2) NEGATIVE NEGATIVE [facility] Arlington[facility] Loepb3856-69-07 11:45:00* Test Item Value Reference Range Interpretation Comments Urine Color (test code = 5778-6) COLORLESS YELLOW [facility] Iuuvfut8945-60-44 11:45:00* Test Item Value Reference Range Interpretation Comments Urine Clarity (test code = 18178-5) CLEAR CLEAR [facility] ArlingtonU[facility] Specific Quzjbka1385-12-48 11:45:00 * Test Item Value Reference Range Interpretation Comments Urine Specific [place] (test code = 5811-5) 1.010 1.010-1.02 5 [facility] Arlington[facility] dV2424-95-14 11:45:00* Test Item Value Reference Range Interpretation Comments Urine pH (test code = 71501-4) 6 5-7 [facility] Leukocyte Qmdzxpxc2366-12-07 11:45:00* Test Item Value Reference Range Interpretation Comments Urine Leukocyte Esterase (test code = 5799-2) NEGATIVE NEGATIVE [facility] Arlington[facility] Lcutntl4640-17-90 11:45:00* Test Item Value Reference Range Interpretation Comments Urine Nitrite (test code = 25149-6) NEGATIVE NEGATIVE [facility] Arlington[facility] Xlwxdyl2561-31-40 11:45:00* Test Item Value Reference Range Interpretation Comments Urine Protein (test code = 5804-0) NEGATIVE NEGATIVE [facility] Arlington[facility] Glucose (UA)2017-09-25 11:45:00* Test Item Value Reference Range Interpretation Comments Urine Glucose (UA) (test code = 2349-9) NEGATIVE NEGATIVE [facility] ArlingtonU[facility] Vxokqfa2468-53-53 11:45:00* Test Item Value Reference Range Interpretation Comments Urine Ketones (test code = 98274-9) NEGATIVE NEGATIVE [facility] Arlington[facility] Vvifwpjbhjao0959-80-46 11:45:00* Test Item Value Reference Range Interpretation Comments Urine Urobilinogen (test code = 04465-8) 0.2 0.2-1 [facility] Arlington[facility] Pvnrqdhee5484-77-84 11:45:00* Test Item Value Reference Range Interpretation Comments Urine Bilirubin (test code = 1978-6) NEGATIVE NEGATIVE [facility] Arlington[facility] Yuwgt1439-43-21 11:45:00* Test Item Value Reference Range Interpretation Comments Urine Blood (test code = 48988-2) NEGATIVE NEGATIVE [facility] ArlingtonTotal Bmyqtgiev4686-95-21 11:25:00* Test Item Value Reference Range Interpretation Comments Total Bilirubin (test code = 1975-2) 0.3 0.2-1.2 [facility] ArlingtonAspartate Amino Transf (AST/SGOT) 2017-09-25 11:25:00* Test Item Value Reference Range Interpretation Comments Aspartate Amino Transf (AST/SGOT) (test code = Aspartate Amino Transf (AST/SGOT)) 23 5-34 [facility] ArlingtonAlanine Aminotransferase (ALT/SGPT) 2017-09-25 11:25:00* Test Item Value Reference Range Interpretation Comments Alanine Aminotransferase (ALT/SGPT) (test code = 1742-6) 27 0-55 [facility] ArlingtonTotal Emvmyqd3328-12-91 11:25:00* Test Item Value Reference Range Interpretation Comments Total Protein (test code = 2885-2) 6.8 6.5-8.1 [facility] ArlingtonAlbumin2018-03-05 11:25:00* Test Item Value Reference Range Interpretation Comments Albumin (test code = 1751-7) 3.4 3.5-5.0 L [facility] ArlingtonGlobulin2018-03-05 11:25:00* Test Item Value Reference Range Interpretation Comments Globulin (test code = 89021-8) 3.4 2.3-3.5 [facility] ArlingtonAlbumin/Globulin Ztbqy8963-99-15 11:25:00 * Test Item Value Reference Range Interpretation Comments Albumin/Globulin Ratio (test code = 1759-0) 1.0 0.8-2.0 [facility] ArlingtonAlkaline Clbtydehofk2546-48-42 11:25:00* Test Item Value Reference Range Interpretation Comments Alkaline Phosphatase (test code = 6768-6) 67 40-150 [facility] Jpmfsnahl0109-02-42 11:25:00* Test Item Value Reference Range Interpretation Comments Total Bilirubin (test code = 1975-2) 0.3 0.2-1.2 [facility] ArlingtonAspartate Amino Transf (AST/SGOT) 2017-09-25 11:25:00* Test Item Value Reference Range Interpretation Comments Aspartate Amino Transf (AST/SGOT) (test code = Aspartate Amino Transf (AST/SGOT)) 23 5-34 [facility] ArlingtonAlanine Aminotransferase (ALT/SGPT) 2017-09-25 11:25:00* Test Item Value Reference Range Interpretation Comments Alanine Aminotransferase (ALT/SGPT) (test code = 1742-6) 27 0-55 [facility] Jnrqwaj2565-60-93 11:25:00* Test Item Value Reference Range Interpretation Comments Total Protein (test code = 2885-2) 6.8 6.5-8.1 [facility] ArlingtonAlbumin2018-03-05 11:25:00* Test Item Value Reference Range Interpretation Comments Albumin (test code = 1751-7) 3.4 3.5-5.0 L [facility] ArlingtonGlobulin2018-03-05 11:25:00* Test Item Value Reference Range Interpretation Comments Globulin (test code = 27181-6) 3.4 2.3-3.5 [facility] ArlingtonAlbumin/Globulin Jdyyv6910-08-42 11:25:00 * Test Item Value Reference Range Interpretation Comments Albumin/Globulin Ratio (test code = 1759-0) 1.0 0.8-2.0 [facility] ArlingtonAlkaline Qgdbuakahdu8423-96-36 11:25:00* Test Item Value Reference Range Interpretation Comments Alkaline Phosphatase (test code = 6768-6) 67 40-150 [facility] ArlingtonBedside Wovsxiz9740-45-27 13:07:00* Test Item Value Reference Range Interpretation Comments Bedside Glucose (test code = 34622-6) 373 70-120 H Meter ID: [id number] [facility] 2017-08-26 07:45:00* Test Item Value Reference Range Interpretation Comments Blood Culture (test code = 91642421) NO GROWTH AFTER [address] [facility] Rgvjh5011-55-89 07:23:00* Test Item Value Reference Range Interpretation Comments Sodium Level (test code = 2951-2) 139 136-145 [facility] ArlingtonPotassium Jcxdg2435-90-25 07:23:00* Test Item Value Reference Range Interpretation Comments Potassium Level (test code = 2823-3) 4.7 3.5-5.1 [facility] ArlingtonChloride Zsoif6398-03-30 07:23:00* Test Item Value Reference Range Interpretation Comments Chloride Level (test code = 2075-0) 103 98-107 [facility] ArlingtonCarbon Dioxide Uxmyp5454-72-71 07:23:00* Test Item Value Reference Range Interpretation Comments Carbon Dioxide Level (test code = 2028-9) 28 22-29 [facility] ArlingtonAnion Uhu5825-06-39 07:23:00* Test Item Value Reference Range Interpretation Comments Anion Gap (test code = 08751-4) 12.7 8-16 [facility] ArlingtonBlood Urea Mqjamzhg6646-63-95 07:23:00* Test Item Value Reference Range Interpretation Comments Blood Urea Nitrogen (test code = 3094-0) 19 7-26 [facility] ArlingtonCreatinine2018-02-02 07:23:00* Test Item Value Reference Range Interpretation Comments Creatinine (test code = 2160-0) 1.05 0.57-1.11 [facility] ArlingtonBUN/Creatinine Sefou1736-05-38 07:23:00* Test Item Value Reference Range Interpretation Comments BUN/Creatinine Ratio (test code = 3097-3) 18 6-25 [facility] ArlingtonEstimat Glomerular Filtration Rate 2017-08-25 07:23:00* Test Item Value Reference Range Interpretation Comments Estimat Glomerular Filtration Rate (test code = 83198-7) 53 >60 L Ranges were taken from the National Kidney Disease Education Program and the Jenise counts include [facility] literature.Reference ranges:60 or greater: Erikpw31-96 ( for 3 consecutive months): Chronic kidney disease 15 or less: Kidney failureUSMD Hospital at ArlingtonGlucose Kyhdw2448-76-21 07:23:00* Test Item Value Reference Range Interpretation Comments Glucose Level (test code = NGB7272) 249 74-118 H [facility] ArlingtonCalcium Kfwhz6546-30-69 07:23:00* Test Item Value Reference Range Interpretation Comments Calcium Level (test code = 03632-4) 8.8 8.4-10.2 [facility] ArlingtonTotal Ujlqxggvh4827-95-09 07:23:00* Test Item Value Reference Range Interpretation Comments Total Bilirubin (test code = 1975-2) 0.5 0.2-1.2 [facility] ArlingtonAspartate Amino Transf (AST/SGOT) 2017-08-25 07:23:00* Test Item Value Reference Range Interpretation Comments Aspartate Amino Transf (AST/SGOT) (test code = Aspartate Amino Transf (AST/SGOT)) 15 5-34 [facility] ArlingtonAlanine Aminotransferase (ALT/SGPT) 2017-08-25 07:23:00* Test Item Value Reference Range Interpretation Comments Alanine Aminotransferase (ALT/SGPT) (test code = 1742-6) 16 0-55 [facility] ArlingtonTotal Rdtpndm2107-45-82 07:23:00* Test Item Value Reference Range Interpretation Comments Total Protein (test code = 2885-2) 6.7 6.5-8.1 [facility] ArlingtonAlbumin2018-02-02 07:23:00* Test Item Value Reference Range Interpretation Comments Albumin (test code = 1751-7) 3.3 3.5-5.0 L [facility] ArlingtonGlobulin2018-02-02 07:23:00* Test Item Value Reference Range Interpretation Comments Globulin (test code = 29709-8) 3.4 2.3-3.5 [facility] ArlingtonAlbumin/Globulin Mnjnp9926-93-86 07:23:00 * Test Item Value Reference Range Interpretation Comments Albumin/Globulin Ratio (test code = 1759-0) 1.0 0.8-2.0 [facility] ArlingtonAlkaline Nrvginmxdob6511-59-95 07:23:00* Test Item Value Reference Range Interpretation Comments Alkaline Phosphatase (test code = 6768-6) 62 40-150 [facility] ArlingtonTriglycerides Tgmun5881-12-49 07:23:00* Test Item Value Reference Range Interpretation Comments Triglycerides Level (test code = 2571-8) 216 0-149 H [facility] ArlingtonCholesterol Lbbcx3417-09-73 07:23:00* Test Item Value Reference Range Interpretation Comments Cholesterol Level (test code = 2093-3) 181 0-199 Less than 200 mg/dL Low Uwoj527 - 239 mg/dL Borderline Zowm827 m g/dl and greater High Risk [facility] ArlingtonLDL Yxokmzimtuh7111-15-56 07:23:00* Test Item Value Reference Range Interpretation Comments LDL Cholesterol (test code = 2089-1) 109 60-130 [facility] ArlingtonHDL Mgioitqlujl4249-00-32 07:23:00* Test Item Value Reference Range Interpretation Comments HDL Cholesterol (test code = 2085-9) 29 40-60 L [facility] ArlingtonCholesterol/HDL Pdlpx0825-89-65 07:23:00 * Test Item Value Reference Range Interpretation Comments Cholesterol/HDL Ratio (test code = 9830-1) 6.2 3.0-3.6 H [facility] ArlingtonTriglycerides Fxtmz1659-48-10 07:23:00* Test Item Value Reference Range Interpretation Comments Triglycerides Level (test code = 2571-8) 216 0-149 H [facility] ArlingtonCholesterol Plipm6669-89-85 07:23:00* Test Item Value Reference Range Interpretation Comments Cholesterol Level (test code = 2093-3) 181 0-199 Less than 200 mg/dL Low Kbgx343 - 239 mg/dL Borderline Qvyh241 m g/dl and greater High Risk [facility] ArlingtonLDL Owjhuqxekhc3427-35-50 07:23:00* Test Item Value Reference Range Interpretation Comments LDL Cholesterol (test code = 2089-1) 109 60-130 [facility] ArlingtonHDL Hkedilenabq6873-42-80 07:23:00* Test Item Value Reference Range Interpretation Comments HDL Cholesterol (test code = 2085-9) 29 40-60 L [facility] ArlingtonCholesterol/HDL Aafdl7368-97-55 07:23:00 * Test Item Value Reference Range Interpretation Comments Cholesterol/HDL Ratio (test code = 9830-1) 6.2 3.0-3.6 H [facility] ArlingtonTriglycerides Rebsq8235-01-80 07:23:00* Test Item Value Reference Range Interpretation Comments Triglycerides Level (test code = 2571-8) 216 0-149 H [facility] ArlingtonCholesterol Witdw9756-23-84 07:23:00* Test Item Value Reference Range Interpretation Comments Cholesterol Level (test code = 2093-3) 181 0-199 Less than 200 mg/dL Low Lgft383 - 239 mg/dL Borderline Carq838 m g/dl and greater High Risk [facility] ArlingtonLDL Zzdrwsexsov2103-09-76 07:23:00* Test Item Value Reference Range Interpretation Comments LDL Cholesterol (test code = 2089-1) 109 60-130 [facility] Lezxuensfhs6661-27-24 07:23:00* Test Item Value Reference Range Interpretation Comments HDL Cholesterol (test code = 2085-9) 29 40-60 L [facility] ArlingtonCholesterol/HDL Fazhv4886-40-17 07:23:00 * Test Item Value Reference Range Interpretation Comments Cholesterol/HDL Ratio (test code = 9830-1) 6.2 3.0-3.6 H [facility] ArlingtonTriglycerides Cfbqg3734-08-03 07:23:00* Test Item Value Reference Range Interpretation Comments Triglycerides Level (test code = 2571-8) 216 0-149 H [facility] ArlingtonCholesterol Iewvv1196-61-66 07:23:00* Test Item Value Reference Range Interpretation Comments Cholesterol Level (test code = 2093-3) 181 0-199 Less than 200 mg/dL Low Zbmf998 - 239 mg/dL Borderline Umth713 m g/dl and greater High Risk [facility] Ajfbwxjnpmy4691-33-29 07:23:00* Test Item Value Reference Range Interpretation Comments LDL Cholesterol (test code = 2089-1) 109 60-130 [facility] Pxtxbkfpbog8880-37-10 07:23:00* Test Item Value Reference Range Interpretation Comments HDL Cholesterol (test code = 2085-9) 29 40-60 L [facility] ArlingtonCholesterol/HDL Obzry2759-56-30 07:23:00 * Test Item Value Reference Range Interpretation Comments Cholesterol/HDL Ratio (test code = 9830-1) 6.2 3.0-3.6 H [facility] ArlingtonTriglycerides Opusk5235-78-89 07:23:00* Test Item Value Reference Range Interpretation Comments Triglycerides Level (test code = 2571-8) 216 0-149 H [facility] ArlingtonCholesterol Asjvi1661-95-02 07:23:00* Test Item Value Reference Range Interpretation Comments Cholesterol Level (test code = 2093-3) 181 0-199 Less than 200 mg/dL Low Kfvm038 - 239 mg/dL Borderline Tmlj942 m g/dl and greater High Risk [facility] ArlingtonLDL Tilwkifonzw0447-89-27 07:23:00* Test Item Value Reference Range Interpretation Comments LDL Cholesterol (test code = 2089-1) 109 60-130 [facility] Rjmrjaxyduo0786-06-32 07:23:00* Test Item Value Reference Range Interpretation Comments HDL Cholesterol (test code = 2085-9) 29 40-60 L [facility] ArlingtonCholesterol/HDL Zfwkm7876-37-81 07:23:00 * Test Item Value Reference Range Interpretation Comments Cholesterol/HDL Ratio (test code = 9830-1) 6.2 3.0-3.6 H [facility] ArlingtonTriglycerides Zzcim9051-24-92 07:23:00* Test Item Value Reference Range Interpretation Comments Triglycerides Level (test code = 2571-8) 216 0-149 H [facility] ArlingtonCholesterol Jtlvw9629-32-47 07:23:00* Test Item Value Reference Range Interpretation Comments Cholesterol Level (test code = 2093-3) 181 0-199 Less than 200 mg/dL Low Jlhj116 - 239 mg/dL Borderline Acty270 m g/dl and greater High Risk [facility] ArlingtonLDL Vfpnbauehth5419-80-40 07:23:00* Test Item Value Reference Range Interpretation Comments LDL Cholesterol (test code = 2089-1) 109 60-130 [facility] Fuwkacujync8477-63-11 07:23:00* Test Item Value Reference Range Interpretation Comments HDL Cholesterol (test code = 2085-9) 29 40-60 L [facility] ArlingtonCholesterol/HDL Gdgqx8738-36-90 07:23:00 * Test Item Value Reference Range Interpretation Comments Cholesterol/HDL Ratio (test code = 9830-1) 6.2 3.0-3.6 H [facility] ArlingtonWhite Blood Ivcwl9022-88-02 07:08:00* Test Item Value Reference Range Interpretation Comments White Blood Count (test code = 6690-2) 4.69 4.8-10.8 L [facility] ArlingtonRed Blood Ofilw5076-82-90 07:08:00* Test Item Value Reference Range Interpretation Comments Red Blood Count (test code = 789-8) 4.53 3.6-5.1 [facility] ArlingtonHemoglobin2018-02-02 07:08:00* Test Item Value Reference Range Interpretation Comments Hemoglobin (test code = 20459-3) 11.9 12.0-16.0 L [facility] ArlingtonHematocrit2018-02-02 07:08:00* Test Item Value Reference Range Interpretation Comments Hematocrit (test code = 4544-3) 39.4 34.2-44.1 [facility] ArlingtonMean Corpuscular Mjmqhy1423-03-93 07:08:00* Test Item Value Reference Range Interpretation Comments Mean Corpuscular Volume (test code = 787-2) 87.0 81-99 [facility] ArlingtonMean Corpuscular Yvktbhapot1918-40-85 07:08:00* Test Item Value Reference Range Interpretation Comments Mean Corpuscular Hemoglobin (test code = 785-6) 26.3 28-32 L [facility] ArlingtonMean Corpuscular Hemoglobin Concent 2017-08-25 07:08:00* Test Item Value Reference Range Interpretation Comments Mean Corpuscular Hemoglobin Concent (test code = 786-4) 30.2 31-35 L [facility] ArlingtonRed Cell Distribution Csmaj7553-79-70 07:08:00* Test Item Value Reference Range Interpretation Comments Red Cell Distribution Width (test code = 96413-4) 14.8 11.7 -14.4 H [facility] ArlingtonPlatelet Leyuh8025-80-20 07:08:00* Test Item Value Reference Range Interpretation Comments Platelet Count (test code = 777-3) 177 140-360 [facility] ArlingtonNeutrophils (%) (Auto)2017-08-25 07:08:00 * Test Item Value Reference Range Interpretation Comments Neutrophils (%) (Auto) (test code = 73825-9) 55.5 38.7-80.0 [facility] ArlingtonLymphocytes (%) (Auto)2017-08-25 07:08:00 * Test Item Value Reference Range Interpretation Comments Lymphocytes (%) (Auto) (test code = 736-9) 28.8 18.0-39.1 [facility] ArlingtonMonocytes (%) (Auto)2017-08-25 07:08:00* Test Item Value Reference Range Interpretation Comments Monocytes (%) (Auto) (test code = 5905-5) 8.7 4.4-11.3 [facility] ArlingtonEosinophils (%) (Auto)2017-08-25 07:08:00 * Test Item Value Reference Range Interpretation Comments Eosinophils (%) (Auto) (test code = 713-8) 5.1 0.0-6.0 [facility] ArlingtonBasophils (%) (Auto)2017-08-25 07:08:00* Test Item Value Reference Range Interpretation Comments Basophils (%) (Auto) (test code = 706-2) 1.3 0.0-1.0 H [facility] ArlingtonIM GRANULOCYTES %2017-08-25 07:08:00* Test Item Value Reference Range Interpretation Comments IM GRANULOCYTES % (test code = IM GRANULOCYTES %) 0.6 0.0- 1.0 [facility] ArlingtonNeutrophils # (Auto)2017-08-25 07:08:00* Test Item Value Reference Range Interpretation Comments Neutrophils # (Auto) (test code = 751-8) 2.6 2.1-6.9 [facility] ArlingtonLymphocytes # (Auto)2017-08-25 07:08:00* Test Item Value Reference Range Interpretation Comments Lymphocytes # (Auto) (test code = 30864-2) 1.4 1.0-3.2 [facility] ArlingtonMonocytes # (Auto)2017-08-25 07:08:00* Test Item Value Reference Range Interpretation Comments Monocytes # (Auto) (test code = 742-7) 0.4 0.2-0.8 [facility] ArlingtonEosinophils # (Auto)2017-08-25 07:08:00* Test Item Value Reference Range Interpretation Comments Eosinophils # (Auto) (test code = 711-2) 0.2 0.0-0.4 [facility] ArlingtonBasophils # (Auto)2017-08-25 07:08:00* Test Item Value Reference Range Interpretation Comments Basophils # (Auto) (test code = 704-7) 0.1 0.0-0.1 [facility] ArlingtonAbsolute Immature Granulocyte (auto 2017-08-25 07:08:00* Test Item Value Reference Range Interpretation Comments Absolute Immature Granulocyte (auto (joseph t code = Absolute Immature Granulocyte (auto) 0.03 0-0.1 [facility] ArlingtonCreatine Pfwlhj4560-41-19 01:09:00* Test Item Value Reference Range Interpretation Comments Creatine Kinase (test code = 2157-6) 41 29-168 [facility] [facility] [id number] 01:09:00* Test Item Value Reference Range Interpretation Comments Creatine Kinase MB (test code = 78343-3) 1.30 0.00-5.00 [facility] [id number] 01:09:00* Test Item Value Reference Range Interpretation Comments Troponin I (test code = 40029-6) 0.006 0-0.300 [facility] A1c Tryvbxq4456-66-03 18:39:00 * Test Item Value Reference Range Interpretation Comments Hemoglobin A1c Percent (test code = Hemoglobin A1c Percent) 7.6 4.0-7.0 H [facility] ArlingtonH[facility] A1c Babguwh5195-71-68 18:39:00 * Test Item Value Reference Range Interpretation Comments Hemoglobin A1c Percent (test code = Hemoglobin A1c Percent) 7.6 4.0-7.0 H [facility] A[facility]c Hpjpznw9628-30-66 18:39:00 * Test Item Value Reference Range Interpretation Comments Hemoglobin A1c Percent (test code = Hemoglobin A1c Percent) 7.6 4.0-7.0 H [facility] A[facility]c Dncwaet1602-52-55 18:39:00 * Test Item Value Reference Range Interpretation Comments Hemoglobin A1c Percent (test code = Hemoglobin A1c Percent) 7.6 4.0-7.0 H [facility] A[facility]c Bprecqu3201-68-37 18:39:00 * Test Item Value Reference Range Interpretation Comments Hemoglobin A1c Percent (test code = Hemoglobin A1c Percent) 7.6 4.0-7.0 H [facility] A[facility]c Ucmsfnm8719-28-16 18:39:00 * Test Item Value Reference Range Interpretation Comments Hemoglobin A1c Percent (test code = Hemoglobin A1c Percent) 7.6 4.0-7.0 H [facility] A[facility]c Qawsjcg2808-02-10 18:39:00 * Test Item Value Reference Range Interpretation Comments Hemoglobin A1c Percent (test code = Hemoglobin A1c Percent) 7.6 4.0-7.0 H [facility] Xuofeow0928-82-56 18:39:00 * Test Item Value Reference Range Interpretation Comments Hemoglobin A1c Percent (test code = Hemoglobin A1c Percent) 7.6 4.0-7.0 H [facility] A[facility]c Bammxsk7930-71-95 18:39:00 * Test Item Value Reference Range Interpretation Comments Hemoglobin A1c Percent (test code = Hemoglobin A1c Percent) 7.6 4.0-7.0 H [facility] Jzyqzlt3955-69-70 18:39:00 * Test Item Value Reference Range Interpretation Comments Hemoglobin A1c Percent (test code = Hemoglobin A1c Percent) 7.6 4.0-7.0 H [facility] Arlington[facility] [id number] 07:50:00* Test Item Value Reference Range Interpretation Comments Urine WBC (test code = 5821-4) 0-5 0-5 [facility] [id number] 07:50:00* Test Item Value Reference Range Interpretation Comments Urine RBC (test code = 56740-4) 0-5 0-5 [facility] Tmuhxonp1050-96-77 07:50:00* Test Item Value Reference Range Interpretation Comments Urine Bacteria (test code = 53114-8) FEW NONE [facility] Epithelial Ledib1627-80-54 07:50:00 * Test Item Value Reference Range Interpretation Comments Urine Epithelial Cells (test code = 14107-3) FEW NONE [facility] Arlington[facility]-Type Natriuretic Pjnhses5907-55-77 07:47:00* Test Item Value Reference Range Interpretation Comments B-Type Natriuretic Peptide (test code = 02041-2) 17.8 0-100 [facility] ArlingtonThyroid Stimulating Hormone (TSH) 2017-08-24 07:47:00* Test Item Value Reference Range Interpretation Comments Thyroid Stimulating Hormone (TSH) (test code = 36777-4) 1.123 0.350-4.940 [facility] ArlingtonInfluenza Virus Types A,B Antigen 2017-08-24 07:39:00* Test Item Value Reference Range Interpretation Comments Influenza Virus Types A,B Antigen (test code = 49372-6) NEGATIVE NEGATIVE [facility] Cskue3484-31-18 07:32:00* Test Item Value Reference Range Interpretation Comments Magnesium Level (test code = 59154-0) 2.0 1.3-2.1 [facility] Erijz6799-07-31 07:32:00* Test Item Value Reference Range Interpretation Comments Magnesium Level (test code = 16146-6) 2.0 1.3-2.1 [facility] Nchja5274-29-55 07:32:00* Test Item Value Reference Range Interpretation Comments Magnesium Level (test code = 87431-1) 2.0 1.3-2.1 [facility] ArlingtonProthrombin Yeih4765-23-37 07:19:00* Test Item Value Reference Range Interpretation Comments Prothrombin Time (test code = 5902-2) 13.0 11.9-14.5 [facility] ArlingtonProthromb Time International Ratio 2017-08-24 07:19:00* Test Item Value Reference Range Interpretation Comments Prothromb Time International Ratio (test code = 6301-6) 0.94 Oral Anticoagulant Therapy INR Values:1. Low Intensity Therapy 1.5 - 2.02 . Moderate Intensity Therapy 2.0 - 3.03. High Intensity Therapy(1) 2.5 - 3. 54. High Intensity Therapy(2) 3.0 - 4.05. Panic Value INR > 5.0 [facility] Arlington[facility] Partial Thromboplast Time 2017-08-24 07:19:00* Test Item Value Reference Range Interpretation Comments Activated Partial Thromboplast Time (test code = 08137-8) 25.1 23.8-35.5 [facility] Qyfqx3336-15-80 07:18:00* Test Item Value Reference Range Interpretation Comments Urine Color (test code = 5778-6) YELLOW YELLOW [facility] Nilxzzd2521-53-34 07:18:00* Test Item Value Reference Range Interpretation Comments Urine Clarity (test code = 85422-3) CLEAR CLEAR [facility] Arlington[facility] Specific Bnbolxv8975-23-86 07:18:00 * Test Item Value Reference Range Interpretation Comments Urine Specific [place] (test code = 5811-5) 1.025 1.010-1.02 5 [facility] [id number] 07:18:00* Test Item Value Reference Range Interpretation Comments Urine pH (test code = 04350-2) 5 5-7 [facility] Leukocyte Kgsckuvm9171-46-26 07:18:00* Test Item Value Reference Range Interpretation Comments Urine Leukocyte Esterase (test code = 5799-2) NEGATIVE NEGATIVE [facility] Orjnpjd3287-53-49 07:18:00* Test Item Value Reference Range Interpretation Comments Urine Nitrite (test code = 33434-2) NEGATIVE NEGATIVE [facility] Qpbnfip3864-19-17 07:18:00* Test Item Value Reference Range Interpretation Comments Urine Protein (test code = 5804-0) NEGATIVE NEGATIVE [facility] Arlington[facility] Glucose (UA)2017-08-24 07:18:00* Test Item Value Reference Range Interpretation Comments Urine Glucose (UA) (test code = 2349-9) 3+ NEGATIVE H [facility] Htdnojb1431-88-61 07:18:00* Test Item Value Reference Range Interpretation Comments Urine Ketones (test code = 34879-4) NEGATIVE NEGATIVE [facility] Pmecflzjlske7968-53-76 07:18:00* Test Item Value Reference Range Interpretation Comments Urine Urobilinogen (test code = 59198-4) 0.2 0.2-1 [facility] Imegdyzex9018-11-38 07:18:00* Test Item Value Reference Range Interpretation Comments Urine Bilirubin (test code = 1978-6) NEGATIVE NEGATIVE [facility] Raqai8133-81-60 07:18:00* Test Item Value Reference Range Interpretation Comments Urine Blood (test code = 09426-2) NEGATIVE NEGATIVE [facility] ArlingtonUS RENAL RETROPERITONEAL COMP [place] [address] Patient Name: KALYANI TALAVERA MR #: [id number] : 1955 Age/Sex: 62/F Req #: [id number] Adm Physician: BENJAMIN MASTERS MD Ordered by: BENJAMIN MASTERS MD Report #: [id number] Locat ion: [facility] Room/Bed: [place] [address] Procedure: [id number] U S/US RENAL RETROPERITONEAL COMP Exam Date: [...] TO: BENJAMIN MASTERS MD CT BRAIN WO [place] [address] Patient Name: KALYANI TALAVERA MR #: [id number] : 1955 Age/Sex: 62/F Req #: [id number] Adm Physician: Ordered by: FLO TOLBERT MD Report #: [id number] Location: ER Room/Bed: Procedure: [id number] CT/CT BRAIN WO Exam Date: Exam Time: [...] TO: Treasure TOLBERT MD CHEST 2 VIEWS [place] [address] Patient Name: KALYANI TALAVERA MR #: [id number] : 1955 Age/Sex: 62/F Req #: [id number] Adm Physician: Ordered by: FLO TOLBERT MD Report #: [id number] Location: ER Room/Bed: Procedure: [id number] DX/CHEST 2 VIEWS Exam Date: 12/23/17 Exam [...] FLO TOLBERT MD KNEE LEFT THREE VIEWS [place] [id number] Patient Name: KALYANI TALAVERA MR #: [id number] : 1955 Age/Sex: 62/F Req #: [id number] Adm Physician: Ordered by: JACQUES JANE MD Report #: [id number] Location: ER Room/Bed: Procedure: [id number] DX/KNEE LEFT THREE VIE WS Exam Date: [...] JACQUES JANE MD PELVIS AP 1-2 VIEWS [place] [address] Patient Name: KALYANI TALAVERA MR #: [id number] : 1955 Age/Sex: 62/F Req #: [id number] Adm Physician: Ordered by: JACQUES JANE MD Report #: [id number] Location: ER Room/Bed: Procedure: [id number] DX/PELVIS AP 1-2 VIEWS Exam Date: 10/31/17 [...] TO: JACQUES JANE MD CHEST 2 VIEWS [place] [address] Patient Name: KALYANI TALAVERA MR #: [id number] : 1955 Age/Sex: 62/F Req #: [id number] Adm Physician: Ordered by: FLO TOLBERT MD Report #: [id number] Location: ER Room/Bed: Procedure: [id number] DX/CHEST 2 VIEWS Exam Date: 10/12/17 Exam [...] COPY TO: FLO TOLBERT MD FOOT RIGHT [place] [address] Patient Name: KALYANI TALAVERA MR #: [id number] : 1955 Age/Sex: 62/F Req #: [id number] Adm Physician: Ordered by: JEFFREY MCDUFFIE MD Report #: [id number] Location: ER Room/Bed: Procedure: [id number] DX/FOOT RIGHT COMPLETE Exa m Date: 10/11/17 [...] JEFFREY MCDUFFIE MD KNEE LEFT THREE VIEWS [place] [address] Patient Name: KALYANI TALAVERA MR #: [id number] : 1955 Age/Sex: 62/F Req #: [id number] Adm Physician: Ordered by: JEFFREY MCDUFFIE MD Report #: [id number] Location: ER Room/Bed: Procedure: [id number] DX/KNEE LEFT THREE VIEWS E xam Date: [...] TO: JEFFREY MCDUFFIE MD CT CHEST WO [place] [address] Patient Name: KALYANI TALAVERA MR #: [id number] : 1955 Age/Sex: 62/F Req #: [id number] [facility] Physician: Ordered by: RAFAELA ASTUDILLO NP Report #: [id number] Location: ER Room/Bed: Procedure: [id number] CT/CT CHEST WO Exam Date: Exam Time: [...] on 09/25/17 1307 COPY TO: RAFAELA ASTUDILLO DISPLAY CARVER CHEST SINGLE (PORTABLE) [place] [address] Patient Name: KALYANI TALAVERA MR #: [id number] : 1955 Age/Sex: 62/F Req #: [id number] Adm Physician: Ordered by: RAFAELA ASTUDILLO DISPLAY CARVER Report #: [id number] Location: ER Room/Bed: Procedure: [id number] DX/CHEST SINGLE (PORTABLE) E xam Date: 09/25/17 [...] on 09/25/17 1106 COPY TO: RAFAELA ASTUDILLO DISPLAY CARVER CHEST 2 VIEWS [place] [address] Patient Name: KALYANI TALAVERA MR #: [id number] : 1955 Age/Sex: 62/F Req #: [id number] Adm Physician: Ordered by: FLO TOLBERT MD Report #: [id number] Location: ER Room/Bed: Procedure: [id number] DX/CHEST 2 VIEWS Exam Date: Exam Time: 0715 REPORT STATUS: Signed PROCEDURE: CHEST 2 VIEWS TECHNIQUE: PA and lateral chest totaling 2 radio graphs INDICATION: Shortness of breath and syncope COMPARISON: [facility], DX, CHEST 2 VIEWS, 10/15/2016, 23:42. [...] AILEEN TOLBERT MD CT CERVICAL SPINE WO [place] [address] Patient Name: KALYANI TALAVERA MR #: [id number] : 1955 Age/Sex: 62/F Req #: [id number] Adm Physician: Ordered by: FLO TOLBERT MD Report #: [id number] Location: ER Room/Bed: Procedure: [id number] CT/CT CERVICAL SPINE WO Exam D ate: [...] TO: FLO TOLBERT MD CT BRAIN WO [place] [address] Patient Name: KALYANI TALAVERA MR #: [id number] : 0 1955 Age/Sex: 62/F Req #: [id number] Adm Physician: Ordered by: FLO TOLBERT MD Report #: [id number] Location: ER Room/Bed: Procedure: [id number] CT/CT BRAIN WO Exam Date: 08/10 Exam [...] 7:54 AM Dictated By: RILEY WYNN MD [facility] Signed By: RILEY WYNN MD on 08/24/17 0754 Transcribed By: JIM on 08/24/17 0755 COPY TO: FLO TOLBERT MD
--- NOTE | 2020-04-03 21:15 | NUR ---
BS CHECK 65. DR NAVA NOTIFIED AND I AMP OF D50% ADMINISTERED. D10% INFUSING AT 100CC / HR TO LT WRIST. WILL CONTINUE TO MONITOR.
--- NOTE | 2020-04-03 23:35 | NUR ---
Telephone report received from Reyna WE[facility]BROOK. Currently awaiting pt to be transferred to ICU room 191.
[2020-04-03] MEDS ORDERED: DEXTROSE 50% SYRINGE 50 ML IV PRN (23:45)
[2020-04-04] VITALS (8 sets, daily range): BP systolic 100–143; BP diastolic 49–70
--- NOTE | 2020-04-04 04:20 | NUR ---
Lab present and collecting morning blood lab specimens.
[2020-04-04 04:44] LABS: BASOPHILS % 0.2 % (0.0-1.0); EOSINOPHILS # (AUTO) 0.2 (0.0-0.4); EOSINOPHILS % 2.5 % (0.0-6.0); HEMATOCRIT 46.1 % (34.2-44.1); LYMPHOCYTES # (AUTO) 1.1 (1.0-3.2); LYMPHOCYTES % 12.5 % (18.0-39.1); MEAN CORPUSCULAR HEMOGLOBIN 24.3 pg (28-32); MEAN CORPUSCULAR HGB CONC 28.2 g/dL (31-35); MEAN CORPUSCULAR VOLUME 86.3 fL (81-99); MONOCYTES # (AUTO) 0.4 (0.2-0.8); NEUTROPHILS # (AUTO) 6.6 (2.1-6.9); NEUTROPHILS % 79.1 % (38.7-80.0); PLATELET COUNT 152 x10e3/uL (140-360); RED BLOOD COUNT 5.34 x10e6/uL (3.6-5.1); RED CELL DISTRIBUTION WIDTH 19.2 % (11.7-14.4)
[2020-04-04 05:04] LABS: BLOOD UREA NITROGEN 18 mg/dL (7-26); BUN/CREATININE RATIO 22 (6-25); CALCIUM 8.6 mg/dL (8.4-10.2); CARBON DIOXIDE 32 mmol/L (22-29); CHLORIDE 95 mmol/L (98-107); CREATININE, SERUM 0.82 mg/dL (0.57-1.11); EST GLOMERULAR FILTRATION RATE > 60 ML/MIN (60-); GLUCOSE 309 mg/dL (74-118); SODIUM 139 mmol/L (136-145)
[2020-04-04] MEDS: CEFEPIME 1GM/NS 0.9% 50 ML 50 ML IV SCH ×2 (12:00→23:50)
--- NOTE | 2020-04-04 12:43 | Diagnostic Imaging Report ---
EXAMINATION: CHEST SINGLE (PORTABLE) INDICATION: CHF and h/o pneumonia COMPARISON: Multiple prior chest x-rays including most recent on 03/31/2020 FINDINGS: TUBES and LINES: None. LUNGS: No significant interval change in multifocal interstitial and patchy airspace opacities throughout both lungs. PLEURA: No pleural effusion or pneumothorax. HEART AND MEDIASTINUM: The cardiomediastinal silhouette is mildly enlarged. BONES AND SOFT TISSUES: No acute osseous lesion. Soft tissues are unremarkable. UPPER ABDOMEN: No free air under the diaphragm. IMPRESSION: Multifocal interstitial and patchy airspace opacities which may represent pulmonary edema in the setting of mild cardiomegaly. However, multifocal pneumonia can have a similar appearance in the proper context. These findings are not significantly changed from most recent prior exam. Signed by: Medina Damon MD on 04/04/2020 12:40 PM
--- NOTE | 2020-04-04 12:51 | History and Physical ---
CHIEF COMPLAINT: Confusion spells. HISTORY OF PRESENT ILLNESS: This is a 65-year-old white woman, who was brought to [facility] Emergency Room by [facility] because of confusion. Apparently in the field, the patient was found to have a glucose level of 22 mg/dL. On arrival in the emergency room, the patient was found to have a serum glucose level of 39 mg/dL. The patient's glucose levels have normalized already. In fact, this morning was 309 mg/dL. The patient was just sent home 2 days ago from [facility] on April 02, 2020 with a diagnosis of bilateral pneumonia and a prescription for oral levofloxacin. The patient was sent home on oral levofloxacin as well as oral glimepiride, Lantus, and Humalog insulin. The patient has had multiple hospitalizations in the last few months because of worsening shortness of breath secondary to congestive heart failure and COPD. As previously stated, she was just discharged home with diagnosis of bilateral pneumonia. I did discuss end of life issues to the patient and she is open to palliative care. The patient had a CT of head on this admission, which did not reveal any acute intracranial abnormality. The patient's complete blood count and comprehensive metabolic profile on admission were unremarkable. The patient will be admitted for further evaluation and treatment. REVIEW OF SYSTEMS: GENERAL: Weight is stable. She was confused on admission, but since resolved. HEENT: Does complain of a headache. No fever. Denies any visual changes. CARDIOVASCULAR/RESPIRATORY: She has chronic cough and she has chronic shortness of breath, but neither are worse than usual. Denies any chest pain or tightness. GI: No nausea, vomiting, diarrhea, or constipation. : Denies any UTI symptoms. NEUROMUSCULAR: Complains of restless legs syndrome symptoms as well as numbness in her feet. ALLERGIES: 1. PENICILLIN. 2. METRONIDAZOLE. PAST MEDICAL HISTORY: 1. Recent hospitalization for bilateral pneumonia. 2. Type 2 diabetes mellitus with neuropathy. 3. Extreme obesity. BMI 42. 4. Hypertensive heart disease. 5. Pulmonary hypertension (mild). 6. Chronic diastolic congestive heart failure. 7. GERD. 8. Restless legs syndrome. 9. Overactive bladder. 10. Dyslipidemia. 11. Depression. 12. COPD. PAST SURGICAL HISTORY: 1. Appendectomy. 2. Left ankle surgery. 3. Right heart catheterization in September 2017, confirmed mild pulmonary hypertension. FAMILY HISTORY: Multiple family members with diabetes mellitus. SOCIAL HISTORY: This woman is single and she lives with her female significant other. No history of tobacco or alcohol use. The patient has a remote history of tobacco smoking (quit at age 32). The patient denies any alcohol use. HOME MEDICATIONS: 1. Levaquin 500 mg daily. 2. Prednisone 40 mg daily for a total of 5 days. 3. Aspirin 81 mg daily. 4. Furosemide 40 mg b.i.d. 5. Gabapentin 300 mg q.i.d. 6. Glimepiride 2 mg daily. 7. Lantus insulin 60 units at night. 8. Humalog insulin 38 units 3 times a day with meals. 9. Losartan 50 mg daily. 10. Metoprolol tartrate 50 mg b.i.d. 11. Omeprazole 40 mg daily. 12. Ondansetron 4 mg b.i.d. p.r.n. nausea. 13. Potassium chloride 10 mEq daily. 14. Ropinirole 2 mg q.i.d. 15. Sertraline 100 mg daily. 16. Simvastatin 40 mg at bedtime. 17. Spironolactone 25 mg daily. 18. Tramadol 50 mg b.i.d. p.r.n. pain. PHYSICAL EXAMINATION: GENERAL: She is awake. She is alert. She is somewhat somnolent, but completely arousable. The patient does not appear to be in any obvious distress. She is very pleasant on exam. VITAL SIGNS: Blood pressure 110/50, pulse 78, respiratory rate 18, temperature 98.0, and oxygen saturation 98% on 4 L oxygen. Height 5 feet 3 inches, weight 240 pounds, BMI 42. INTEGUMENT: Skin is warm and dry. No pallor, jaundice, or diaphoresis. HEENT: Anicteric sclerae with moist mucous membranes. The patient is edentulous. NECK: Supple. No evidence of jugular venous distention. CARDIOVASCULAR: Distant heart sounds. Regular rate and rhythm. LUNGS: No rales, rhonchi, or wheezes, but she has decreased breath sounds at bases. ABDOMEN: Obese and benign. EXTREMITIES: No edema or deformity. NEURO: Intact. DIAGNOSES: 1. Iatrogenic hypoglycemia. 2. Bilateral pneumonia, likely gram-negative bria, resolving. 3. Chronic obstructive pulmonary disease. 4. Chronic diastolic congestive heart failure. 5. Pulmonary hypertension (mild). 6. Extreme obesity, BMI 42. PLAN: 1. We will hold diabetic medications particularly Amaryl since sulfonylureas can cause severe symptomatic hypoglycemia in people over the age of 65. 2. We will hold quinolones, namely levofloxacin since this could exacerbate her hypoglycemia. 3. We will start intravenous cefepime for the patient's bilateral pneumonia. 4. Continue supplemental oxygen. 5. Continue nebulized bronchodilators. 6. Continue oral prednisone for COPD exacerbation. 7. Continue congestive heart failure medical management with furosemide, losartan, and metoprolol tartrate. 8. I discussed end of life with the patient and she is agreeable to palliative care. 9. We will order hospice evaluation since this patient has presented to the hospital 2 or 3 times every month in the last 12 months. 10. Ordered a chest film. 11. We will check a B-type natriuretic peptide level to assess for intravascular volume overload. 12. We will mobilize physical therapy. I spent 75 minutes in the care of this intensive care unit patient. MD NEERU Ceron/ELVIN /[id number] MTDD
--- NOTE | 2020-04-04 13:08 | NUR ---
Received order for hospice eval. Spoke to pt at bedside. Pt states Dr. Cassidy spoke with her about hospice and that she is agreeable. Choice letter signed for [facility]. Copy given to pt. Signed choice letter placed in front of chart. Referral sent to [facility] at [phone]. Lupillo Thornton with [facility] was informed of referral and will contact pt.
[2020-04-04] MEDS: GABAPENTIN 300 MG CAP PO SCH ×3 (16:20→23:50)
--- NOTE | 2020-04-04 16:46 | NUR ---
Received report from AZIZA Huang in ICU at 1630. Patient arrived to floor at 1640. Patient was oriented to room, procedures, and plan of care. Patient has call light within reach and bed in lowest position. Patient has an IV in place and it is patent and without S/S of redness or irritation. Patient is aware that she is potentially being discharged tomorrow with [facility]. This copywriter talked to My, telephonic nurse case manager and she stated she talked to the hospice providers and they will be coming tomorrow. Will continue to monitor.
[2020-04-04] MEDS: FUROSEMIDE 40 MG TAB PO SCH (17:27)
[2020-04-04] MEDS: METOPROLOL TARTRATE 50 MG TAB PO SCH (17:27)
--- NOTE | 2020-04-04 17:47 | NUR ---
Patient blood glucose at 1630 was 361. Patient does not have any insulin coverage. Dr. Cassidy ( who is covering for Dr. Huerta) was paged. He returned the call and ordered her scheduled Humalog (50 u ACHS) and Lantus (60u HS) to continue. Patient agreeable. Patient has no other issues or complaints. Also changed the blood glucose checks from Q2H to ACHS due to not being on a dextrose drip.
[2020-04-04] MEDS ORDERED: INSULIN LISPRO 100 UNIT/1 ML 3ML VIAL SQ SCH (21:00)
[2020-04-04] MEDS: SIMVASTATIN 40 MG TAB PO SCH (21:18)
[2020-04-04] MEDS: INSULIN GLARGINE 100 UNITS/ML VIAL SQ SCH (21:20)
[2020-04-04] MEDS ORDERED: SODIUM CHLORIDE 0.9% 250ML 250 ML ONE (23:57)
[2020-04-05] VITALS (7 sets, daily range): BP systolic 131–145; BP diastolic 50–72
[2020-04-05] MEDS: GABAPENTIN 300 MG CAP PO SCH ×4 (06:00→23:33)
[2020-04-05 06:51] LABS: BASOPHILS % 0.2 % (0.0-1.0); EOSINOPHILS # (AUTO) 0.3 (0.0-0.4); EOSINOPHILS % 5.3 % (0.0-6.0); HEMATOCRIT 43.9 % (34.2-44.1); HEMOGLOBIN 12.3 g/dL (12.0-16.0); LYMPHOCYTES # (AUTO) 1.7 (1.0-3.2); LYMPHOCYTES % 30.5 % (18.0-39.1); MEAN CORPUSCULAR HEMOGLOBIN 24.3 pg (28-32); MEAN CORPUSCULAR VOLUME 86.6 fL (81-99); MONOCYTES # (AUTO) 0.3 (0.2-0.8); MONOCYTES % 5.7 % (4.4-11.3); NEUTROPHILS # (AUTO) 3.1 (2.1-6.9); NEUTROPHILS % 57.2 % (38.7-80.0); PLATELET COUNT 156 x10e3/uL (140-360); RED BLOOD COUNT 5.07 x10e6/uL (3.6-5.1)
[2020-04-05 07:12] LABS: CHLORIDE 100 mmol/L (98-107); POTASSIUM 4.4 mmol/L (3.5-5.1); SODIUM 141 mmol/L (136-145)
[2020-04-05 07:13] LABS: ANION GAP 15.4 mmol/L (8-16); BLOOD UREA NITROGEN 19 mg/dL (7-26); BUN/CREATININE RATIO 23 (6-25); CALCIUM 8.4 mg/dL (8.4-10.2); CARBON DIOXIDE 30 mmol/L (22-29); CREATININE, SERUM 0.81 mg/dL (0.57-1.11); EST GLOMERULAR FILTRATION RATE > 60 ML/MIN (60-); GLUCOSE 193 mg/dL (74-118)
[2020-04-05] MEDS: LOSARTAN POTASSIUM 25 MG TAB PO SCH (09:25)
[2020-04-05] MEDS: ASPIRIN 81 MG CHEW TAB PO SCH (09:25)
[2020-04-05] MEDS: SPIRONOLACTONE 25 MG TAB PO SCH (09:25)
[2020-04-05] MEDS: PREDNISONE 10 MG TAB PO SCH (09:26)
[2020-04-05] MEDS: FUROSEMIDE 40 MG TAB PO SCH ×2 (09:26→16:28)
[2020-04-05] MEDS: PANTOPRAZOLE SOD 40 MG TABEC PO SCH (09:26)
[2020-04-05] MEDS: SERTRALINE HCL 100 MG TAB PO SCH (09:26)
[2020-04-05] MEDS: METOPROLOL TARTRATE 50 MG TAB PO SCH ×2 (09:26→16:28)
[2020-04-05] MEDS: CEFEPIME 1GM/NS 0.9% 50 ML 50 ML IV SCH ×2 (11:10→23:34)
--- NOTE | 2020-04-05 17:06 | NUR ---
Patient blood glucose 465, when rechecked it was 456. Dr. Cassidy was called and ordered 50 units of humalog now, 60 unit Lantus that is given at bedtime to be given now, and high dose sliding scale. Will do doctors orders.
[2020-04-05] MEDS ORDERED: INSULIN LISPRO 100 UNIT/1 ML 3ML VIAL SQ SCH (17:15)
[2020-04-05] MEDS ORDERED: DEXTROSE 50% SYRINGE 50 ML IV PRN (17:15)
[2020-04-05] MEDS: INSULIN GLARGINE 100 UNITS/ML VIAL SQ SCH (17:16)
[2020-04-05] MEDS: ACETAMINOPHEN 325 MG TAB PO PRN ×2 (18:12→23:45)
[2020-04-05] MEDS: SIMVASTATIN 40 MG TAB PO SCH (21:43)
[2020-04-05] MEDS: INSULIN REGULAR, HUMAN 100 UNIT/1 ML 3ML VIAL SQ SCH (21:44)
--- NOTE | 2020-04-05 22:55 | NUR ---
SPOKE TO DR. MURRAY AT THIS TIME. NEW ORDER RECEIVED TO DC AIRFRAME AND POWER PLANT MECHANIC.
[2020-04-06] VITALS: BP 138/72
[2020-04-06 04:00] VITALS: BP 137/62
[2020-04-06 05:24] LABS: BASOPHILS % 0.3 % (0.0-1.0); EOSINOPHILS # (AUTO) 0.3 (0.0-0.4); EOSINOPHILS % 4.1 % (0.0-6.0); HEMATOCRIT 39.2 % (34.2-44.1); HEMOGLOBIN 11.4 g/dL (12.0-16.0); LYMPHOCYTES # (AUTO) 1.9 (1.0-3.2); LYMPHOCYTES % 27.8 % (18.0-39.1); MEAN CORPUSCULAR HEMOGLOBIN 24.5 pg (28-32); MEAN CORPUSCULAR HGB CONC 29.1 g/dL (31-35); MEAN CORPUSCULAR VOLUME 84.3 fL (81-99); MONOCYTES # (AUTO) 0.4 (0.2-0.8); MONOCYTES % 6.4 % (4.4-11.3); NEUTROPHILS # (AUTO) 4.2 (2.1-6.9); NEUTROPHILS % 60.2 % (38.7-80.0); PLATELET COUNT 157 x10e3/uL (140-360); RED BLOOD COUNT 4.65 x10e6/uL (3.6-5.1); RED CELL DISTRIBUTION WIDTH 18.5 % (11.7-14.4)
[2020-04-06 05:47] LABS: ANION GAP 13.3 mmol/L (8-16); BLOOD UREA NITROGEN 22 mg/dL (7-26); BUN/CREATININE RATIO 26 (6-25); CALCIUM 8.8 mg/dL (8.4-10.2); CARBON DIOXIDE 29 mmol/L (22-29); CHLORIDE 101 mmol/L (98-107); CREATININE, SERUM 0.84 mg/dL (0.57-1.11); EST GLOMERULAR FILTRATION RATE > 60 ML/MIN (60-); GLUCOSE 133 mg/dL (74-118); POTASSIUM 4.3 mmol/L (3.5-5.1); SODIUM 139 mmol/L (136-145)
[2020-04-06] MEDS: GABAPENTIN 300 MG CAP PO SCH ×2 (06:00→11:55)
--- NOTE | 2020-04-06 07:00 | NUR ---
RECEIVED PATIENT RESTING IN BED NO S/S OF DISTRESS. BED LOW, WHEELS LOCKED, SIDE RAILS X2. CALL LIGHT IN REACH WILL CONTINUE TO MONITOR PATIENT.
[2020-04-06] MEDS: INSULIN REGULAR, HUMAN 100 UNIT/1 ML 3ML VIAL SQ SCH ×2 (07:30→11:30)
[2020-04-06] MEDS: METOPROLOL TARTRATE 50 MG TAB PO SCH (07:33)
[2020-04-06 07:44] VITALS: BP 136/49
[2020-04-06 08:00] VITALS: BP 136/49
[2020-04-06] MEDS: ASPIRIN 81 MG CHEW TAB PO SCH (08:00)
[2020-04-06] MEDS: SPIRONOLACTONE 25 MG TAB PO SCH (08:00)
[2020-04-06] MEDS: PREDNISONE 10 MG TAB PO SCH (08:01)
[2020-04-06] MEDS: PANTOPRAZOLE SOD 40 MG TABEC PO SCH (08:01)
[2020-04-06] MEDS: FUROSEMIDE 40 MG TAB PO SCH (08:01)
[2020-04-06] MEDS: SERTRALINE HCL 100 MG TAB PO SCH (08:01)
[2020-04-06] MEDS: LOSARTAN POTASSIUM 25 MG TAB PO SCH (08:01)
[2020-04-06 08:36] LABS: ANISOCYTOSIS SLIGHT; HYPOCHROMASIA SLIGHT; PLATELET ESTIMATE ADEQUATE; PLATELET MORPHOLOGY COMMENT NORMAL; RBC MORPHOLOGY COMMENT ABNORMAL
[2020-04-06 08:37] LABS: OVALOCYTES FEW; POIKILOCYTOSIS SLIGHT
--- NOTE | 2020-04-06 08:54 | NUR ---
CALLED [employer] WHOM TRANSFERRED ME TO [facility], WHOM STATES CAN TAKE UP TO 3 HOURS, SPOKE WITH [employer] WHOM STATES CANNOT SET UP DUE TO OXYGEN, CALLED INSURANCE BACK
--- NOTE | 2020-04-06 09:20 | NUR ---
Pt. expressed no spiritual or emotional concerns at this time. Pt preparing to d/c. LISSETTE NIELSON Mixer Operator Spiritual Care Department O: [phone]
[2020-04-06] MEDS ORDERED: ceftin PO (09:50)
--- NOTE | 2020-04-06 10:18 | Progress Note ---
DATE: 04/06/2020 SUBJECTIVE: Ms. Painter is a 65-year-old female with recurrent admissions to [facility] with history of diabetes with neuropathy, obesity, hypertension, pulmonary hypertension, chronic diastolic CHF, restless legs syndrome, overactive bladder, depression, hyperlipidemia, COPD, recently discharged from [facility] with pneumonia on p.o. antibiotics. She apparently was found to have a blood sugar of 22 when she was brought to the emergency room. Dr. Cassidy saw her during the weekend and talked to her about end-of-life issues and palliative care and the patient is going to be discharged home on hospice. PHYSICAL EXAMINATION: GENERAL: Today, she is awake and alert. She is not really sure about hospice. VITAL SIGNS: Temperature is 97.7, blood pressure is 136/49. HEART: Irregularly irregular. LUNGS: Clear to auscultation. ABDOMEN: Soft. LABORATORY DATA: On the blood work; white count is 6.9, hemoglobin 11.4, hematocrit 32.2, potassium 4.3, glucose is 133. COVID test is pending, last time was negative. Chest x-ray on the showed multifocal interstitial and patchy airspace opacities that probably were secondary to the pneumonia. She previously had head CT that showed no acute findings. ASSESSMENT: 1. Recently discharged on p.o. antibiotics due to pneumonia. 2. Hypoglycemia. 3. Chronic obstructive pulmonary disease. 4. Chronic diastolic congestive heart failure. 5. Pulmonary hypertension. 6. Hyperlipidemia. 7. Diabetes type 2 with neuropathy. 8. Peripheral neuropathy. 9. Depression. 10. Restless legs syndrome. PLAN: At the present time is to discharge the patient home. She was made hospice. Apparently, Dr. Cassidy talked to her about hospice. I will continue all her home medications and follow up with her next week. I discussed this also in detail with her. She understands she is going to continue taking the medications. MD MARLY Schmidt/MODL /[id number]
--- NOTE | 2020-04-06 10:47 | NUR ---
HAVE BEEN ON HOLD THIS ENTIRE TIME, AND WAS FAXED THE AMBULANCE FORM COMPLETED AND FAXED TO [facility] VIA THE SANDBLAST OPERATOR, TOLD TO WRITE EXPEDITE ON TOP AND THEY STATE [facility]WORK, COMPLETED AND [facility]ED [facility] UP TRANSPORT, THEY WILL BE HERE AT APPROX 230 FOR WHEELCHAIR TRANSPORT WITH O2.
--- NOTE | 2020-04-06 11:49 | Discharge Summary ---
ADMITTING DIAGNOSES: 1. Iatrogenic hypoglycemia. 2. Bilateral pneumonia, likely gram-negative bria, resolving. 3. Chronic obstructive pulmonary disease. 4. Chronic diastolic congestive heart failure. 5. Pulmonary hypertension (mild). 6. Extreme obesity, BMI 52. 7. Type 2 diabetes mellitus. DISCHARGE DIAGNOSES: 1. Iatrogenic hypoglycemia, resolved. 2. Bilateral pneumonia likely gram-negative pneumonia, resolving. 3. Oiwjl-xk-jjesltk diastolic congestive heart failure, resolving. 4. Type 2 diabetes mellitus. 5. Mild pulmonary hypertension. 6. Extreme obesity, BMI 52. HOSPITAL COURSE: This 65-year-old white woman, who was initially admitted to [facility] with diagnosis of iatrogenic hypoglycemia. Once the patient's glimepiride was held as well as her short-acting Humalog insulin, her hypoglycemia resolved. The patient's glucose was controlled with subcutaneous Lantus insulin. Also, during this hospitalization, she was found to have persistent bilateral pneumonia likely gram-negative bria in etiology. The patient was started on intravenous cefepime, which she tolerated quite well. During this hospitalization, the patient made herself a do not resuscitate code status. Moreover, palliative treatment for hospice care was discussed with the patient and she was receptive to this idea. During this hospitalization, the patient actually agreed to be discharged on to home hospice care. The patient's hospitalization was unremarkable. The plan was for the patient to be discharged on MondayApril 06, 2020. CONDITION ON DISCHARGE: Stable with overall guarded prognosis. DISCHARGE MEDICATIONS: 1. Sertraline 100 mg daily. 2. Prednisone 40 mg daily for 5 more days. 3. Pantoprazole 40 mg daily. 4. Metoprolol tartrate 50 mg b.i.d. 5. Furosemide 40 mg b.i.d. 6. Losartan 50 mg daily. 7. Spironolactone 25 mg daily. 8. Aspirin 81 mg daily. 9. Gabapentin 300 mg q.i.d. 10. Ceftin 500 mg b.i.d. for 5 days. 11. Lantus insulin 62 units subcutaneous every night. 12. Simvastatin 40 mg at bedtime. The following medications were discontinued, namely ciprofloxacin, glimepiride, Humalog insulin, levofloxacin, potassium chloride and ropinirole. FOLLOW UP INSTRUCTIONS: As previously stated, the patient will be discharged home on MondayApril 06, 2020, and she will be enrolled in home hospice care. Prior to discharge, an [id number] do not resuscitate code status was completed. MD NEERU Ceron/ELVIN /[id number] cc: MD Lucille Lund MD MTDD
[2020-04-06 11:59] VITALS: BP 136/44
[2020-04-06] MEDS: CEFEPIME 1GM/NS 0.9% 50 ML 50 ML IV SCH (12:10)
--- NOTE | 2020-04-06 14:28 | NUR ---
REMOVED PATIENTS IV. CATHETER TIP INTACT AND PRESSURE DRESSING APPLIED.
--- NOTE | 2020-04-06 15:15 | NUR ---
PATIENT DISCHARGED HOME ON HOSPICE. PATIENT LEFT UNIT IN WHEELCHAIR IN STABLE CONDITION. NO S/S OF DISTRESS.
== END 2020-04-06 15:15 | disposition hospice, home (50) | DRG 637 ==
LOC: ER 18:22 → ERHOLD 20:41 → ICU 23:50 → MED/SURG 04-04 16:40
PROVIDERS: ADMIT Internal Medicine; ATTEND Internal Medicine
DX: E11.649 Type 2 diabetes mellitus with hypoglycemia without coma (principal); J15.6 Pneumonia due to other Gram-negative bacteria; I50.32 Chronic diastolic (congestive) heart failure; Z68.41 Body mass index [BMI] 40.0-44.9, adult; I27.20 Pulmonary hypertension, unspecified; I11.0 Hypertensive heart disease with heart failure; E11.42 Type 2 diabetes mellitus with diabetic polyneuropathy; J44.9 Chronic obstructive pulmonary disease, unspecified; Z88.0 Allergy status to penicillin; Z88.8 Allergy status to other drugs, medicaments and biological substances; E66.01 Morbid (severe) obesity due to excess calories; K21.9 Gastro-esophageal reflux disease without esophagitis; N32.81 Overactive bladder; E78.5 Hyperlipidemia, unspecified; F32.9 Major depressive disorder, single episode, unspecified; G25.81 Restless legs syndrome; Z11.59 Encounter for screening for other viral diseases; Z79.82 Long term (current) use of aspirin; Z79.4 Long term (current) use of insulin
CPT/HCPCS: 36415; 70450; 71045; 80048; 80053; 81001; 82948; 83880; 84484; 85025; 96372; 97139; 99284; J0692; J1815; J1817; J7050; J7512; J7799; U0002

== ENCOUNTER 2020-05-26 18:56 | Emergency (ER) | payer OTHER ==
[~2020-05-26] VITALS: Ht 160 cm; Wt 108.9 kg
[~2020-05-26 18:56] MED LIST changes: +ceftin PO
[2020-05-26] MEDS ORDERED: FENTANYL CITRATE/PF 100MCG/2 ML INJ IV ONE (19:00)
[2020-05-26] MEDS ORDERED: SODIUM CHLORIDE 0.9% 1000ML 1,000 ML IV SCH (19:00)
[2020-05-26 19:28] LABS: BASOPHILS % 0.7 % (0.0-1.0); EOSINOPHILS # (AUTO) 0.2 (0.0-0.4); EOSINOPHILS % 3.7 % (0.0-6.0); HEMATOCRIT 39.1 % (34.2-44.1); HEMOGLOBIN 12.2 g/dL (12.0-16.0); LYMPHOCYTES # (AUTO) 1.3 (1.0-3.2); LYMPHOCYTES % 23.7 % (18.0-39.1); MEAN CORPUSCULAR HEMOGLOBIN 24.9 pg (28-32); MEAN CORPUSCULAR HGB CONC 31.2 g/dL (31-35); MEAN CORPUSCULAR VOLUME 79.8 fL (81-99); MONOCYTES # (AUTO) 0.3 (0.2-0.8); MONOCYTES % 4.6 % (4.4-11.3); NEUTROPHILS # (AUTO) 3.6 (2.1-6.9); NEUTROPHILS % 66.4 % (38.7-80.0); PLATELET COUNT 136 x10e3/uL (140-360)
[2020-05-26 19:48] LABS: ALBUMIN 3.7 g/dL (3.5-5.0); ALBUMIN/GLOBULIN RATIO 1.1 (0.8-2.0); ANION GAP 14.4 mmol/L (8-16); CREATININE, SERUM 1.34 mg/dL (0.57-1.11); POTASSIUM 4.4 mmol/L (3.5-5.1)
[2020-05-26 19:51] LABS: CLARITY,URINE CLEAR (CLEAR); COLOR,URINE YELLOW (YELLOW); LEUKOCYTE ESTERASE ,URINE NEGATIVE (NEGATIVE); NITRITE,URINE NEGATIVE (NEGATIVE); PROTEIN,URINE DIPSTICK NEGATIVE (NEGATIVE)
[2020-05-26 19:52] LABS: BILIRUBIN,URINE NEGATIVE (NEGATIVE); KETONES,URINE NEGATIVE (NEGATIVE); URINE UROBILINOGEN 0.2 mg/dL (0.2 - 1)
[2020-05-26 20:03] LABS: BACTERIA,URINE FEW /HPF; EPITHELIAL CELLS,URINE RARE /LPF
[2020-05-26] MEDS ORDERED: INSULIN REGULAR, HUMAN 100 UNIT/1 ML 3ML VIAL ONE (20:04)
[2020-05-26] MEDS ORDERED: INSULIN REGULAR, HUMAN 100 UNIT/1 ML 3ML VIAL SQ ONE (20:05)
[2020-05-26] MEDS ORDERED: SODIUM CHLORIDE 0.9% 50ML 50 ML ONE (20:12)
[2020-05-26] MEDS ORDERED: IOPAMIDOL 370 MG/ML 200 ML INFUS..BTL INJ ONE (20:13)
--- NOTE | 2020-05-26 20:16 | Emergency Department Note ---
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 Mode: [facility] Required: No Onset (how long ago): hour(s) (4) Location: rectal Quality: bleeding Radiation: Reports non-radiation Severity: mild Onset quality: sudden Duration (how long): hour(s) Timing of current episode: intermittent Progression: unchanged Chronicity: recurrent Context: Denies recent illness, Denies recent surgery Relieving factors: none Exacerbating factors: none Associated symptoms: Reports denies other symptoms Treatments prior to arrival: none Past Medical/Family History Physician Review I have reviewed the patient's past medical and family history. Any updates have been documented here. Past Medical History Recent Fever: No Clinical Suspicion of Infectio: No New/Unexplained Change in Ment: No Past Medical History: Hypertension, Diabetes, CHF, A-Fib, UTI's, Migraines, Anemia, Anxiety, Depression, GERD, Hyperlipedemia Other Medical History: Home o2 at 4L, home cpap, neuropathy, restless leg, sleep apnea, GI BLEED Past Surgical History: Appendectomy Other Surgery: Left foot surgery Other Last Tetanus: UNK Review of Systems Review of Systems Constitutional: Reports as per HPI EENTM: Reports no symptoms Cardiovascular: Reports no symptoms Respiratory: Reports no symptoms Gastrointestinal: Reports as per HPI Genitourinary: Reports no symptoms Musculoskeletal: Reports no symptoms Integumentary: Reports no symptoms Neurological: Reports no symptoms Psychological: Reports no symptoms Endocrine: Reports no symptoms Hematological/Lymphatic: Reports no symptoms Physical Exam Related Data Allergies: Coded Allergies: metronidazole (Verified Allergy, Intermediate, RASH,ITCHING, 03/02/20) Penicillins (Verified Allergy, Unknown, rash, 01/10/19) Triage Vital Signs Vital Signs Date Time Temp Pulse Resp B/P (MAP) Pulse Ox O2 Delivery O2 Flow Rate FiO2 05/26/20 18:56 98.1 67 20 132/62 100 Nasal Cannula 4.0 Vital signs reviewed: Yes Physical Exam CONSTITUTIONAL Constitutional: Present well-developed, Present well-nourished HENT HENT: Present normocephalic, Present atraumatic, Present oropharynx clear/moist, Present nose normal HENT L/R: Present left ext ear normal, Present right ext ear normal EYES Eyes: Reports PERRL, Reports conjunctivae normal NECK Neck: Present ROM normal PULMONARY Pulmonary: Present effort normal, Present breath sounds normal CARDIOVASCULAR Cardiovascular: Present regular rhythm, Present heart sounds normal, Present capillary refill normal, Present normal rate GASTROINTESTINAL Abdominal: Present soft, Present nontender, Present bowel sounds normal GENITOURINARY Genitourinary: Present exam deferred SKIN Skin: Present warm, Present dry MUSCULOSKELETAL Musculoskeletal: Present ROM normal NEUROLOGICAL Neurological: Present alert, Present oriented x 3, Present no gross motor or sensory deficits PSYCHOLOGICAL Psychological: Present mood/affect normal, Present judgement normal Results Laboratory Result Diagram: 05/26/20191905/26/201919 Laboratory Laboratory Tests Test 05/26/20 19:39 05/26/20 19:20 Urine Color Yellow (YELLOW) Urine Clarity Clear (CLEAR) Urine pH 6 (5 - 7) Urine Specific [place] 1.010 (1.010-1.025) Urine Protein Negative (NEGATIVE) Urine Glucose (UA) 3+ (NEGATIVE) Urine Ketones Negative (NEGATIVE) Urine Blood Negative (NEGATIVE) Urine Nitrite Negative (NEGATIVE) Urine Bilirubin Negative (NEGATIVE) Urine Urobilinogen 0.2 mg/dL (0.2 - 1) Urine Leukocyte Esterase Negative (NEGATIVE) Urine RBC None /HPF (0-5) Urine WBC None /HPF (0-5) Urine Epithelial Cells Rare /LPF (NONE) Urine Bacteria Few /HPF (NONE) White Blood Count 5.40 x10e3/uL (4.8-10.8) Red Blood Count 4.90 x10e6/uL (3.6-5.1) Hemoglobin 12.2 g/dL (12.0-16.0) Hematocrit 39.1 % (34.2-44.1) Mean Corpuscular Volume 79.8 fL (81-99) Mean Corpuscular Hemoglobin 24.9 pg (28-32) Mean Corpuscular Hemoglobin Concent 31.2 g/dL (31-35) Red Cell Distribution Width 16.0 % (11.7-14.4) Platelet Count 136 x10e3/uL (140-360) Neutrophils (%) (Auto) 66.4 % (38.7-80.0) Lymphocytes (%) (Auto) 23.7 % (18.0-39.1) Monocytes (%) (Auto) 4.6 % (4.4-11.3) Eosinophils (%) (Auto) 3.7 % (0.0-6.0) Basophils (%) (Auto) 0.7 % (0.0-1.0) Neutrophils # (Auto) 3.6 (2.1-6.9) Lymphocytes # (Auto) 1.3 (1.0-3.2) Monocytes # (Auto) 0.3 (0.2-0.8) Eosinophils # (Auto) 0.2 (0.0-0.4) Basophils # (Auto) 0.0 (0.0-0.1) Absolute Immature Granulocyte (auto 0.05 x10e3/uL (0-0.1) Sodium Level 131 mmol/L (136-145) Potassium Level 4.4 mmol/L (3.5-5.1) Chloride Level 95 mmol/L (98-107) Carbon Dioxide Level 26 mmol/L (22-29) Anion Gap 14.4 mmol/L (8-16) Blood Urea Nitrogen 35 mg/dL (7-26) Creatinine 1.34 mg/dL (0.57-1.11) Estimat Glomerular Filtration Rate 40 ML/MIN (60-) BUN/Creatinine Ratio 26 (6-25) Glucose Level 641 mg/dL (74-118) Calcium Level 9.0 mg/dL (8.4-10.2) Total Bilirubin 0.3 mg/dL (0.2-1.2) Aspartate Amino Transf (AST/SGOT) 8 IU/L (5-34) Alanine Aminotransferase (ALT/SGPT) 12 IU/L (0-55) Alkaline Phosphatase 119 IU/L (40-150) Total Protein 7.1 g/dL (6.5-8.1) Albumin 3.7 g/dL (3.5-5.0) Globulin 3.4 g/dL (2.3-3.5) Albumin/Globulin Ratio 1.1 (0.8-2.0) Lipase 21 U/L (8-78) Lab results reviewed: Yes Imaging Imaging results reviewed: Yes Diagnostics Tests Diagnostic test(s) reviewed: Yes Assessment & Plan Medical Decision Making MDM 65 y.o F presents for abd pain and rectal bleeding. Symptoms started 4 hours ago. She has had this before and had a colonoscopy which was benign. Initial diff includes diverticulitis vs hemorrhoids vs other GI bleed. Exam is benign. No rectal bleeding or ext hemorrhoids noted. CT abd pelvis benign. Labs benign. Doubt emergent process at this time. I discussed results patient as well as expected disease time course and management. They will follow up with their primary care provider or return to the emergency department for new or worsening symptoms. Patient's appropriate for discharge. Referral for [facility]. Reassessment Reassessment time: 20:14 Reassessment Well appearing, NAD Assessment & Plan Final Impression: (1) Rectal bleeding Depart Disposition: HOME, SELF-CARE Last Vital Signs Date Time Temp Pulse Resp B/P (MAP) Pulse Ox O2 Delivery O2 Flow Rate FiO2 05/26/20 18:56 98.1 67 20 132/62 100 Nasal Cannula 4.0 Home Meds Reported Medications [ceftin] No Conflict Check, 500 MG PO BID for 5 Days 04/06/20 Prednisone (PREDNISONE) 10 Mg Tab, 40 MG PO DAILY for 4 Days, #30 TAB 04/02/20 Tramadol HCl (Tramadol HCl) 100 Mg Tablet, 50 MG PO Q12H PRN for Mild Pain (1-3) or Fever>100.8 03/05/20 Ondansetron Hcl (ZOFRAN) 8 Mg Tablet, 4 MG PO Q12H PRN for NAUSEA 03/05/20 Insulin Glargine (LANTUS 3ML PEN) 100 Units/1 Ml Inj, 60 UNITS SQ HS 01/21/19 Losartan Potassium (LOSARTAN POTASSIUM) 50 Mg Tablet, 50 MG PO DAILY 01/16/19 Spironolactone (SPIRONOLACTONE) 25 Mg Tablet, 25 MG PO DAILY, TAB 06/27/18 Sertraline Hcl (SERTRALINE HCL) 100 Mg Tablet, 100 MG PO DAILY, TAB 06/27/18 Simvastatin (SIMVASTATIN) 40 Mg Tablet, 40 MG PO 2100, #30 TAB 09/28/17 Gabapentin (GABAPENTIN) 300 Mg Capsule, 300 MG PO Q6H, #120 CAP 09/28/17 Furosemide (FUROSEMIDE) 40 Mg Tablet, 40 MG PO BID, #60 TAB 09/28/17 Metoprolol Tartrate (METOPROLOL TARTRATE) 50 Mg Tablet, 50 MG PO BID, TAB 09/28/17 Omeprazole (OMEPRAZOLE) 40 Mg Capsule.dr, 40 MG PO DAILY 09/28/17 Aspirin (ASPIR 81) 81 Mg Tablet.dr, 81 MG PO DAILY 09/28/17 Medications in the ED Sodium Chloride 1,000 ml @ 100 mls/hr Q10H IV Last administered on 05/26/20at 20:00; Admin Dose 999 MLS/HR; Start 05/26/20 at 19:00; Stop 06/25/20 at 18:59 Fentanyl Citrate 50 mcg ONCE ONCE IV Last administered on 05/26/20at 19:35; Admin Dose 50 MCG; Start 05/26/20 at 19:00; Stop 05/26/20 at 19:02; Status DC Insulin Human Regular 100 unit STK-MED ONCE .ROUTE ; Start 05/26/20 at 20:04; Stop 05/26/20 at 19:57; Status DC Sodium Chloride 50 ml @ ud STK-MED ONCE .ROUTE ; Start 05/26/20 at 20:12; Stop 05/26/20 at 20:06; Status DC Iopamidol 74,000 mg STK-MED ONCE INJ ; Start 05/26/20 at 20:13; Stop 05/26/20 at 20:06; Status DC Insulin Human Regular 10 unit ONCE ONCE SQ Last administered on 05/26/20at 20:05; Admin Dose 10 UNIT; Start 05/26/20 at 20:05; Stop 05/26/20 at 20:06; Status KELLY WRAY MD May 26, 2020 20:15
[2020-05-26] MEDS ORDERED: INSULIN REGULAR, HUMAN 100 UNIT/1 ML 3ML VIAL IV ONE (20:45)
--- NOTE | 2020-05-26 21:03 | Diagnostic Imaging Report ---
EXAM: CT Abdomen and Pelvis WITH contrast INDICATION: avila-umbilical abd pain, rectal bleeding COMPARISON: None. TECHNIQUE: Abdomen and pelvis were scanned utilizing a multidetector helical scanner from the lung base to the pubic symphysis after administration of IV contrast. Coronal and sagittal reformations were obtained. Routine protocol was performed. Scan was performed when during portal venous phase. IV CONTRAST: 100 mL of Isovue 370 ORAL CONTRAST: None COMPLICATIONS: None RADIATION DOSE: Total DLP: 953 mGy*cm Estimated effective dose: (DLP x 0.015 x size factor) mSv CTDIvol has been reviewed. It is below the limits set by the Radiation Protocol Committee (RPC). Dose modulation, iterative reconstruction, and/or weight based adjustment of the mA/kV was utilized to reduce the radiation dose to as low as reasonably achievable. FINDINGS: LINES and TUBES: None. LOWER THORAX: The lower lungs is limited by respiratory motion artifact. There is bibasilar atelectasis. HEPATOBILIARY: The liver is enlarged measuring up to 23 cm and caudal dimension. No focal hepatic lesions. No biliary ductal dilation. GALLBLADDER: No radio-opaque stones or sludge. No wall thickening. SPLEEN: Enlarged measuring up to 15 cm in craniocaudal dimension. There are multiple low-density lesions throughout the spleen, too small to characterize but most likely represent hemangiomas or cysts. PANCREAS: No focal masses or ductal dilatation. ADRENALS: No adrenal nodules KIDNEYS/URETERS: Kidneys enhanceNo stones. symmetrically. No hydronephrosis. There are scattered too small to characterize hypodensites, likely benign. GI TRACT: There is thickening of the gastric fundus and body. Otherwise no abnormal distention, wall thickening, or evidence of bowel obstruction. Appendix is not clearly identified. There is however no fat stranding or adenopathy in the right lower quadrant to suggest appendicitis. PELVIC ORGANS/BLADDER: Unremarkable. LYMPH NODES: No lymphadenopathy. VESSELS: There is severe atherosclerotic disease in the aorta and major arterial branches. PERITONEUM / RETROPERITONEUM: No free air or fluid. BONES: There are degenerative changes in the spine. Focus of increased sclerosis in the right superior pubic rami most likely represents a bone island. SOFT TISSUES: Unremarkable. IMPRESSION: 1. Thickening of the gastric fundus and body which may be due to underdistention or mild gastritis. 2. Otherwise no acute abdominopelvic abdomen was identified 3. Hepatosplenomegaly. Signed by: Medina Damon MD on 05/26/2020 9:00 PM
--- OUTSIDE RECORDS SUMMARY | 2020-05-28 19:20 | XMS REPORT | Continuity of Care Document ---
Author Author [facility] t Organization [facility] Address [address] [place] [address] Phone Unavailable Care Team Providers Care Police Captain Name Role Phone LUCILLE OLIVO MD PCP [...] Date Expiration Date Mary wen [employer] [facility] [id number] 2013 00:00:00 [facility] [employer] [facility] [id number] 2013 00:00:00 [facility] Problems Condition Name Condition Details Condition Category Status Onset Date Resolution Date Last Treatment Date Treating Clinician Comments Source Uncontrolled type 2 diabetes mellitus Diabetes type 2, uncontrol led Problem Active [facility] Hyperglycemia Hyperglycemia Problem Active [facility] Pneumonia Pneumonia Problem Active [facility] Syncope Syncope Problem Active [facility] Chronic kidney disease CKD (chronic kidney disease) Problem Active [facility] Pre-syncope Syncope, near Problem Active [facility] Poorly controlled diabetes mellitus Poorly controlled diabetes m ellitus Problem Active [facility] Bradycardia with 41-50 beats per minute Bradycardia with 41- 50 beats per minute Problem Active [facility] Congestive heart failure CHF (congestive heart failure) Problem Active [facility] Chronic obstructive pulmonary disease COPD (chronic ob structive pulmonary disease) Problem Active [facility] Volume depletion Volume depletion Problem Active [facility] Allergies, Adverse Reactions, Alerts Allergy Name Allergy Type Status Severity Reaction(s) Onset Date Inacti ve Date Treating Clinician Comments Source Penicillins DA Active SV 2020-01-06 00:00:00 [facility] Penicillins DA Active SV 2019-12-12 00:00:00 [facility] Penicillins DA Active SV 2019-12-03 00:00:00 [facility] Penicillins DA Active SV 2019-11-20 00:00:00 [facility] Penicillins DA Active SV 2019-08-20 00:00:00 [facility] Penicillins DA Active SV 2019-08-06 00:00:00 [facility] Penicillins DA Active SV 2019-05-31 00:00:00 [facility] Penicillins DA Active SV 2019-05-17 00:00:00 [facility] Penicillin Allergy to Substance Active rash 2019-01-10 00:00:00 [facility] Penicillins DA Active SV 2017-11-15 00:00:00 [facility] Medications Ordered Medication Name Filled Medication Name Start Date Stop Da te Current Medication? Ordering Clinician Indication Dosage Frequency Signature (SIG) Comments Components Source Bacitracin/Polymyxin B Sulfate (Bacitrac in-Polymyxin Ointment) 28.35 Gm Oint...g. Bacitracin/Polymyxin B Sulfate (Bacitrac in-Polymyxin Ointment) 28.35 Gm Oint...g. 2019-04-23 00:00:00 Yes Elieser Dawson Md 2 Three Times A Day [facility] Betamethasone/Clotrimazole (Clotrimazole-Betamethasone Crm) 15 Gm Cr Betamethasone/Clotrimazole (Clotrimazole-Betamethasone Crm) 15 Gm Cr 2019-04-23 00:00:00 Yes Elieser Dawson Md 2 Three Times A Day [facility] Chlorhexidine Gluconate (Hibiclens) 120 Ml Liqd Chlorh exidine Gluconate (Hibiclens) 120 Ml Liqd 2019-04-23 00:00:00 Yes Elieser Dawson Md 5 Three Times A Day [facility] Aspirin (Aspir 81) 81 Mg Tablet. Aspirin (Aspir 81) 81 Mg Tablet. Yes 81 Daily [facility] Furosemide 40 Mg Tablet Furosemide 40 Mg Tablet Yes 40 Twice A Day [facility] Gabapentin 300 Mg Capsule Gabapentin 300 Mg Capsule Yes 300 Every 6 Hours [facility] Glimepiride 2 Mg Tablet Glimepiride 2 Mg Tablet Yes 2 Daily [facility] Insulin Glargine (Lantus 3ML Pen) 100 Units/1 Ml Inj I nsulin Glargine (Lantus 3ML Pen) 100 Units/1 Ml Inj Yes 60 Bedtime [facility] Insulin Lispro (Humalog) 100 Unit/1 Ml Insuln.pen Insu mateus Lispro (Humalog) 100 Unit/1 Ml Insuln.pen Yes 30 Three Times Daily With Meals [facility] Losartan Potassium 50 Mg Tablet Losartan Potassium 50 Mg Tablet Yes 50 Daily [facility] Metoprolol Tartrate 50 Mg Tablet Metoprolol Tartrate 50 Mg Tablet Yes 50 Twice A Day [facility] Omeprazole 40 Mg Capsule. Omeprazole 40 Mg Capsule.dr Yes 40 Daily [facility] Potassium Chloride 10 Meq Tablet.er Potassium Chloride 10 Meq Tablet. er Yes 10 Daily [facility] Ropinirole Hcl 1 Mg Tablet Ropinirole Hcl 1 Mg Tablet Yes 2 Four Times Daily [facility] Sertraline Hcl 100 Mg Tablet Sertraline Hcl 100 Mg Tablet Y es 100 Daily [facility] Simvastatin 40 Mg Tablet Simvastatin 40 Mg Tablet Yes 40 Today At 9:00PM [facility] Spironolactone 25 Mg Tablet Spironolactone 25 Mg Tablet Yes 25 Daily [facility] Insulin Human Regular (Humulin R U-500*) 500 Unit/1 Ml Inj, 50 Subcutaneously Insulin Human Regular (Humulin R U-500*) 500 Unit/1 Ml Inj, 50 Subcutaneously 2019-01-21 00:00:00 No 50 Three Times A Day [facility] Albuterol Sulfate (Proair Hfa Inhaler*) 8.5 Gm Inh, 2 Inh Albuterol Sulfate (Proair Hfa Inhaler*) 8.5 Gm Inh, 2 Inh 2019-01-16 00:00:00 No 2 Four Times Daily as needed for Shortness Of Breath [facility] Fenofibrate Nanocrystallized (Fenofibrate) 145 Mg Tabl et, 145 Mg Oral Fenofibrate Nanocrystallized (Fenofibrate) 145 Mg Tablet, 145 Mg Oral 2019-01-16 00:00:00 No 145 Daily [facility] Sildenafil Citrate (Revatio) 20 Mg Tab, 20 Mg Oral Calista denafil Citrate (Revatio) 20 Mg Tab, 20 Mg Oral 2019-01-16 00:00:00 No 20 Th ree Times A Day [facility] Solifenacin Succinate (Vesicare) 5 Mg Tablet, 10 Mg Or al Solifenacin Succinate (Vesicare) 5 Mg Tablet, 10 Mg Oral 2019-01-16 00:00:00 No 10 Bedtime [facility] Benzonatate (Tessalon Perle) 100 Mg Capsule, 100 Mg Or al Benzonatate (Tessalon Perle) 100 Mg Capsule, 100 Mg Oral 2019-01-13 00:00:00 No 100 Every 12 Hours [facility] Glimepiride 2 Mg Tablet, 4 Mg Oral Glimepiride 2 Mg Tablet, 4 Mg Oral 2019-01-13 00:00:00 No 4 Twice A Day [facility] Furosemide (Lasix) 40 Mg Tablet, 40 Mg Oral Furosemide (Lasix) 40 Mg Tablet, 40 Mg Oral 2018-07-03 00:00:00 No 40 Twice A Day [facility] Paroxetine Hcl 20 Mg Tablet, 40 Mg Oral Paroxetine Hcl 20 Mg Tablet, 40 Mg Oral 2018-06-27 00:00:00 No 40 Daily [facility] Tramadol Hcl (Ultram 50MG*) 50 Mg Tab, 50 Mg Oral Tram adol Hcl (Ultram 50MG*) 50 Mg Tab, 50 Mg Oral 2018-06-27 00:00:00 No 50 Every 12 Hours [facility] Insulin Regular, Human (Humulin R) 100 Unit/1 Ml Vial, 20 Units Subcutaneously Insulin Regular, Human (Humulin R) 100 Unit/1 Ml Vial, 20 Units Subcutaneously 2017-12-28 00:00:00 No 20 Twice A Day [facility] Insulin Detemir (Levemir) 100 Unit/1 Ml Vial, Insulin Detemir (Levemir) 100 Unit/1 Ml Vial, 2017-10-31 00:00:00 [facility] Insulin Aspart (Novolog Mix 70-30 Vial) 100 Units/Ml M l, Insulin Aspart (Novolog Mix 70-30 Vial) 100 Units/Ml Ml, 2017-10-11 00:00:00 [facility] Metformin Hcl (Glucophage) 500 Mg Tablet, Metformin Hc l (Glucophage) 500 Mg Tablet, 2017-09-28 00:00:00 [facility] Metoprolol Succinate (Toprol Xl) 50 Mg Tab.er.24h, 50 Oral Metoprolol Succinate (Toprol Xl) 50 Mg Tab.er.24h, 50 Oral 2017-09-28 00:00:00 No 50 Twice A Day for Elevated Blood Pressure [facility] Procedures Procedure Date / Time Performed Performing Clinician [facility] e X-ray of chest, two views 2019-01-10 00:00:00 BOYD NICHOLS [facility] Computed tomography of brain without radiopaque contrast 201 03-04-19 00:00:00 EUNICE ELIESER Hernandez [facility] Computed tomography of cervical spine without contrast 07-11 00:00:00 EUNICE ELIESER S [facility] CT maxillofacial area wo contrast 2018-07-11 00:00:00 JEAN DAWSON [facility] X-ray of chest, single view 2018-07-01 00:00:00 BENJAMIN MASTERS [facility] X-ray of chest, two views 2018-06-27 00:00:00 TINA JANE [facility] Encounters Start Date/Time End Date/Time [facility] ID Source 2019-04-27 02:46:00 2019-04-27 04:46:00 [facility] [id number] [facility] 2019-04-23 20:19:00 2019-04-23 20:58:00 Departed Emergency Room [facility] [id number] [facility] 2019-04-17 20:48:00 2019-04-17 21:35:00 Departed Emergency Room [facility] [id number] [facility] 2019-03-15 01:19:00 2019-03-15 03:30:00 Departed Emergency Room 1 JANEJACQUES BURLESON [facility] [id number] [facility] 2019-02-23 23:49:00 2019-02-24 05:38:00 Departed Emergency Room 1 JANEJACQUES [facility] [id number] [facility] 2019-01-18 14:54:00 2019-01-21 16:15:00 Discharged Inpatient 1 JACQUES JANE [facility] [id number] [facility] 2019-01-11 19:31:00 2019-01-13 15:36:00 Discharged Inpatient (obs) 1 [facility] [id number] [facility] 2019-01-10 15:21:00 2019-01-10 19:19:00 Departed Emergency Room 1 [place] [facility] [id number] [facility] 2018-07-30 16:40:00 2018-07-31 01:45:00 Departed Emergency Room 1 [place] [facility] [id number] [facility] 2018-07-11 10:03:00 2018-07-11 14:40:00 Departed Emergency Room 1 ELIESER DAWSON [facility] [id number] [facility] 2018-07-01 09:28:00 2018-07-03 14:06:00 Discharged Inpatient 1 LUCILLE OLIVO [facility] [id number] [facility] 2018-05-30 19:52:00 2018-05-30 20:30:00 Departed Emergency Room [facility] [id number] [facility] 2018-04-03 01:16:00 2018-04-03 04:19:00 Departed Emergency Room 1 ROBERT OLIVIA [facility] [id number] [facility] 2018-02-04 11:46:00 2018-02-07 13:55:00 Discharged Inpatient (obs) 1 ROBERT OLIVIA [facility] [id number] [facility] 2018-01-31 22:01:00 2018-02-01 02:14:00 Departed Emergency Room 1 [place] [facility] [id number] [facility] 2017-12-24 00:08:00 2017-12-28 16:18:00 Discharged Inpatient (obs) 1 BENJAMIN MASTERS [facility] [id number] [facility] 2017-10-31 01:50:00 2017-10-31 03:18:00 Departed Emergency Room ER JACQUES JANE [facility] [id number] [facility] 2017-10-25 22:28:00 2017-10-26 00:09:00 Departed Emergency Room [facility] [id number] [facility] 2017-10-11 23:19:00 2017-10-12 04:45:00 Departed Emergency Room ER FLO TOLBERT [facility] [id number] [facility] 2017-10-11 07:38:00 2017-10-11 10:17:00 Departed Emergency Room ER JEFFREY MCDUFFIE [facility] [id number] [facility] 2017-09-25 14:18:00 2017-09-29 13:30:00 Discharged Inpatient ER JAYASHREE BADILLO [facility] [id number] [facility] 2017-08-24 13:00:00 2017-08-26 16:20:00 Discharged Inpatient (obs) ER FLO TOLBERT [facility] [id number] [facility] 2017-04-17 23:09:00 2017-04-18 03:16:00 Departed Emergency Room [facility] [id number] [facility] 2017-02-09 21:43:00 2017-02-10 02:38:00 Departed Emergency Room [facility] [id number] [facility] 2016-12-29 19:19:00 2016-12-30 01:00:00 Departed Emergency Room [facility] [id number] [facility] Results Test Description Test Time Test Comments Results Result Comments Source CT ABDOMEN/PELVIS W 2020-05-26 20:51:00 [facility] : 1955 Sex: F [place] [address] Patient Name: KALYANI TALAVERA MR #: [id number] : 1955 Age/Sex: 65/F Req #: [id number] [facility] Physician: Ordered by: Kelly Salgado MD Report #: [id number] Location: ER Room/Bed: Procedure: [id number] CT/CT ABDOMEN/PELVIS W Exam Date: 05/26/20 Exam Time: 1999 REPORT STATUS: Signed EXAM: CT Abdomen and Pelvis WITH contrast INDICATION: avila-umbilical abd pain, rectal bleeding COMPARISON: None. TECHNIQUE: Abdomen and pelvis were scanned utilizing a multidetector helical scanner from the lung base to the pubic symphysis after administration of IV contrast. Coronal and sagittal reformations were obtained. Routine protocol was performed. Scan was performed when during portal venous phase. IV CONTRAST: 100 mL of Isovue 370 ORAL CONTRAST: None COMPLICATIONS: None RADIATION DOSE: Total DLP: 953 mGy*cm Estimated effective dose: (DLP x 0.015 x size factor) mSv CTDIvol has been reviewed. It is below the limits set by the Radiation Protocol Committee (RPC). Dose modulation, iterative reconstruction, and/or weight based adjustment of the mA/kV was utilized to reduce the radiation dose to as low as reasonably achievable. FINDINGS: LINES and TUBES: None. LOWER THORAX: The lower lungs is limited by respiratory motion artifact. There is bibasilar atelectasis. HEPATOBILIARY: The liver is enlarged measuring up to 23 cm and caudal dimension. No focal hepatic lesions. No biliary ductal dilation. GALLBLADDER: No radio-opaque stones or sludge. No wall thickening. SPLEEN: Enlarged measuring up to 15 cm in craniocaudal dimension. There are multiple low-density lesions throughout the spleen, too small to characterize but most likely represent hemangiomas or cysts. PANCREAS: No focal masses or ductal dilatation. ADRENALS: No adrenal nodules KIDNEYS/URETERS: Kidneys enhanceNo stones. symmetrically. No hydronephrosis. There are scattered too small to characterize hypodensites, likely benign. GI TRACT: There is thickening of the gastric fundus and body. Otherwise no abnorm al distention, wall thickening, or evidence of bowel obstruction. Appendix is not clearly identified. There is however no fat stranding or adenopathy in the right lower quadrant to suggest appendicitis. PELVIC ORGANS/BLADDER: Unremarkable. LYMPH NODES: No lymphadenopathy. VESSELS: There is severe atherosclerotic disease in the aorta and major arterial branches. PERITONEUM / RETROPERITONEUM: No free air or fluid. BONES: There are degenerative changes in the spine. Focus of increased sclerosis in the right superior pubic rami most likely represents a bone islan d. SOFT TISSUES: Unremarkable. IMPRESSION: 1. Thickening of the gastric fundus and body which may be due to underdistention or mild gastritis. 2. Otherwise no acute abdominopelvic abdomen was identified 3. Hepatosplenomegaly. Signed by: Medina Bhatti MD on 05/26/2020 9:00 PM Dictated By: MEDINA BHATTI MD 99 Transcribed By: JIM on 05/26/202099 COPY TO: KELLY SALGADO MD CHEST SINGLE (PORTABLE) 2020-04-04 12:37:00 [facility] [address] [address] Patient Name: KALYANI TALAVERA MR #: [id number] : 1955 Age/Sex: 65/F Req #: [id number] Adm Physician: LUCILLE OLIVO MD Ordered by: JOLIE MURRAY MD Report #: [id number] Location: ICU Room/Bed: ICU [facility] Procedure: DX/CHEST SINGLE (PORTABLE) Exam Date: 04/04/20 Exam Time: 1220 REPORT STATUS: Signed EXAMINATION: CHEST SINGLE (PORTABLE) INDICATION: CHF and h/o pneumonia COMPARISON: Multiple prior chest x-rays including most recent on 03/31/2020 FINDINGS: TUBES and LINES: None. LUNGS: No significant interval change in multifoca l interstitial and patchy airspace opacities throughout both lungs. PLEURA: No pleural effusion or pneumothorax. HEART AND MEDIASTINUM: The cardiomediastinal silhouette is mildly enlarged. BONES AND SOFT TISSUES: No acute osseous lesion. Soft tissues are unremarkable. UPPER ABDOMEN: No free air under the diaphragm. IMPRESSION: Multifocal interstitial and patchy airspace opacities which may represent pulmonary edema in the setting of mild cardiomegaly. However, multifocal pneumonia can have a similar appearance in the proper context. These findings are not significantly changed from most recent prior exam. Signed by: Medina Bhatti MD on 04/04/2020 12:40 PM Dictated By: MEDINA BHATTI MD 1240 Transcribed By: JIM on 04/04/20 1240 COPY TO: JOLIE MURRAY MD CT BRAIN WO 2020-04-03 19:32:00 [facility] [address] [address] Patient Name: KALYANI TALAVERA MR #: [id number] : 1955 Age/Sex: 65/F Req #: [id number] Adm Physician: LUCILLE OLIVO MD Ordered by: Kelly Salgado MD Report #: [id number] Location: MED/SURG Room/Bed: [facility] Procedure: [id number] CT/CT BRAIN WO Exam Date: 04/03/20 Exam Time: 1908 REPORT STATUS: Signed EXAMINATION: Head CT without [...] Acceptable. FINDINGS: Skull/scalp: No lytic or blastic. lesi ons. No surgical changes. Parenchyma: Nonspecific few, scattered [...] SALGADO MD CHEST SINGLE (PORTABLE) 2020-03-31 08:48:00 [place] [address] Patient Name: KALYANI TALAVERA MR #: [id number] : 1955 Age/Sex: 65/F Req #: [id number] Adm Physician: LUCILLE OLIVO MD Ordered by: TAZ BRAVO MD Report #: [id number] Location: MED/SURG Room/Bed: [facility] Procedure: [id number] DX/CHEST SINGLE (PORTABLE) Exam Date: 03/31/20 Exam [...] on 03/31/20851 COPY TO: TAZ BRAVO MD, [facility] CHEST 2 VIEWS 2020-03-30 06:46:00 [place] [address] Patient Name: KALYANI TALAVERA MR #: [id number] : 1955 Age/Sex: 65/F Req #: [id number] Adm Physician: LUCILLE OLIVO MD Ordered by: PARIS JUAN MD Report #: [id number] Location: MED/SURG Room/Bed: [facility] Procedure: [id number] DX/CHEST 2 VIEWS Exam Date: 03/30/20 Exam Time: 0633 REPORT STATUS: Signed EXAMINATION: CHEST 2 VIEWS INDICATION: resp failure COMPARISON: 03/27/2020 FINDINGS: PA and lateral views TUBES and LINES: None. LUNGS: Lungs are well inflated. Persistent bilateral airspace opacities. PLEURA: No pleural ef fusion or pneumothorax. HEART AND MEDIASTINUM: The cardiomediastinal [...] JUAN MD CT CHEST WO 2020-03-27 16:18:00 [place] [address] Patient Name: KALYANI TALAVERA MR #: [id number] : 1955 Age/Sex: 65/F Req #: [id number] Adm Physician: LUCILLE OLIVO MD Ordered by: PARIS JUAN MD Report #: [id number] Location: MED/SURG Room/Bed: [facility] Procedure: [id number] CT/CT CHEST WO Exam Date: 03/27/20 Exam Time: 1550 REPORT STATUS: Signed EXAM: CT Chest WITHOUT intravenous contrast 03/27/2020 4:01 PM INDICATION: dyspnea COMPARISON: Chest x-ray dated the same day. CT chest dated 02/05/2020 TECHNIQUE: Chest was scanned utilizing a multidetector helical scanner from the lung apex through the level of the a drenal glands without administration of IV contrast. Coronal [...] There is no pericardial effusion. Thoracic aorta d emonstrates mild atherosclerotic changes of the arch. Thoracic [...] By: JIM on 03/27/201627 COPY TO: PARIS VALDERRAMA MD CHEST SINGLE (PORTABLE) 2020-03-27 03:41:00 [place] [address] Patient Name: KALYANI TALAVERA MR #: [id number] : 1955 Age/Sex: 65/F Req #: [id number] Adm Physician: Ordered by: RAFAELA MCADAMS DO Report #: [id number] Location: ER Room/Bed: Procedure: [id number] DX/CHEST SINGLE (PORTABLE) Exam Date: 03/27/20 Exam Time: 214 REPORT STATUS: Signed EXAMINATION: CHEST SINGLE (PORTABLE) INDICATION: sob [id number] COMPARISON: 02/23/2020 FINDINGS: AP view TUBES and [...] Transcribed By: JIM on 03/27/20342 COPY TO: ABBERAFAELA CHEST SINGLE (PORTABLE) 2020-03-12 03:34:00 [place] [address] Patient Name: KALYANI TALAVERA MR #: [id number] : 1955 Age/Sex: 65/F Req #: [id number] Adm Physician: Ordered by: JACQUES JANE MD Report #: [id number] Location: ER Room/Bed: Procedure: [id number] DX/CHEST SINGLE (PORTABLE) Exam Date: 03/12/20 Exam [...] MD CHEST XRAY LINE PLACEMENT 2020-02-26 21:45:00 [facility] [address] [address] Patient Name: KALYANI TALAVERA MR #: [id number] : 1955 Age/Sex: 64/F Req #: [id number] Adm Physician: LUCILLE OLIVO MD Ordered by: FLO TOLBERT MD Report #: [id number] Location: MED/SURG Room/Bed: [facility] Procedure: [id number] DX/CHEST XRAY LINE PLACEMENT Exam Date: 02/26/20 [...] TOLBERT MD CT ABDOMEN/PELVIS WO 2020-02-26 16:53:00 [facility] [address] [address] Patient Name: KALYANI TALAVERA MR #: [id number] : 1955 Age/Sex: 64/F Req #: [id number] [facility] Physician: Ordered by: FLO TOLBERT MD Report #: [id number] Location: ER Room/Bed: Procedure: CT/CT ABDOMEN/PELVIS WO [...] TOLBERT MD CHEST SINGLE (PORTABLE) 2020-02-26 14:35:00 [place] [address] Patient Name: KALYANI TALAVERA MR #: [id number] : 1955 Age/Sex: 64/F Req #: [id number] Adm Physician: Ordered by: FLO TOLBERT MD Report #: [id number] Location: ER Room/Bed: Procedure: [id number] DX/CHEST SINGLE (PORTABLE) Exam Date: 02/26/20 Exam [...] TOLBERT MD CHEST SINGLE (PORTABLE) 2020-02-08 06:52:00 [place] [address] Patient Name: KALYANI TALAVERA MR #: [id number] : 1955 Age/Sex: 64/F Req #: [id number] Adm Physician: Ordered by: JACQUES JNAE MD Report #: [id number] Location: ER Room/Bed: Procedure: [id number] DX/CHEST SINGLE (PORTABLE) Exam Date: 02/08/20 Exam [...] JANE MD CT CHEST W 2020-02-05 06:23:00 [place] [address] Patient Name: KALYANI TALAVERA MR #: [id number] : 1955 Age/Sex: 64/F Req #: [id number] Adm Physician: Ordered by: RAFAELA MCADAMS DO Report #: [id number] Location: ER Room/Bed: Procedure: [id number] CT/CT CHEST W Exam Date: 02/05/20 Exam [...] YASH JOSEPH MD Transcribed By: JIM on 02/05/2039 COPY TO: RAFAELA MCADAMS DO CT ABDOMEN/PELVIS W 2020-02-05 06:23:00 [place] [address] Patient Name: KALYANI TALAVERA MR #: [id number] : 1955 Age/Sex: 64/F Req #: [id number] Adm Physician: Ordered by: RAFAELA MCADAMS DO Report #: [id number] Location: ER Room/Bed: Procedure: [id number] CT/CT ABDOMEN/PELVIS W Exam Date: 02/05/20 Exam Time: 558 REPORT STATUS: Signed ADDENDUM #1 Addendum: GI [...] 386 mg/dL 74-106 H Performed by certified auxiliary equipment operator at [facility] [id number] 11:50:00* Test Item Value Reference Range Interpretation Comments GLUBED (test code = GLUBED) 247 mg/dL 74-106 H Performed by certified auxiliary equipment operator at [facility] [id number] 08:17:00* Test Item Value Reference Range Interpretation Comments GLUBED (test code = GLUBED) 226 mg/dL 74-106 H Performed by certified auxiliary equipment operator at [facility] BASIC METABOLIC [id number] 06:17:00* Test Item Value Reference Range Interpretation [...] CA) 8.8 mg/dL 8.5-10.1 N BASIC METABOLIC [id number] 05:54:00* Test Item Value Reference Range Interpretation [...] CALCIUM (test code = CA) mg/dL 8.5-10.1 [id number] 20:08:00* Test Item Value Reference Range Interpretation Comments GLUBED (test code = GLUBED) 161 mg/dL 74-106 H Performed by certified auxiliary equipment operator at [facility] [id number] 16:30:00* Test Item Value Reference Range Interpretation Comments GLUBED (test code = GLUBED) 120 mg/dL 74-106 H Performed by certified auxiliary equipment operator at [facility] [id number] 11:27:00* Test Item Value Reference Range Interpretation Comments GLUBED (test code = GLUBED) 164 mg/dL 74-106 H Performed by certified auxiliary equipment operator at [facility] - XR CHEST 1 [id number] 09:27:00 FAX: Jasen Frias MD [phone] [place]: St: ADM FAX: Taz Mccormick MD [phone] FAX: Benjamin Francis MD [phone] Name: KALYANI TALAVERA [facility] : 1955 Age/S: 64/F [address] [facility] Unit #: [id number] Loc: V.4040 [place], [place] [id number] Phys: Taz Bravo MD Acct: [id number] Dis Date: Status: ADM IN [facility] #: [phone] Exam Date: 01/27/2020 1040 FAX #: [phone] Reason: chf EXAMS: CPT CODE: [id number] XR CHEST 1 V 53474 HISTORY: CHF. COMPARISON: January 24, 2020. Location: [facility]. Suboptimal inspiration. Crowding of bronchovascular markings. Dependent changes. Vague groundglass opacities is nonspecific finding. Cardiomegaly. IMPRESSION: No infiltrates or congestion. Va raquel groundglass opacities. These are unchanged. Electronical ly Signed by Gregory Chowdhury on 01/27/2020 at 0998 Rep orted and signed by: Solomon Chowdhury [...] 127 mg/dL 74-106 H Performed by certified auxiliary equipment operator at [facility] [id number] 07:40:00* Test Item Value Reference Range Interpretation Comments GLUBED (test code = GLUBED) 116 mg/dL 74-106 H Performed by certified auxiliary equipment operator at [facility] [id number] 22:23:00* Test Item Value Reference Range Interpretation Comments GLUBED (test code = GLUBED) 259 mg/dL 74-106 H Performed by certified auxiliary equipment operator at [facility] [id number] 17:10:00* Test Item Value Reference Range Interpretation Comments GLUBED (test code = GLUBED) 219 mg/dL 74-106 H Performed by certified auxiliary equipment operator at [facility] [id number] 11:45:00* Test Item Value Reference Range Interpretation Comments GLUBED (test code = GLUBED) 265 mg/dL 74-106 H Performed by certified auxiliary equipment operator at [facility] [id number] 08:52:00* Test Item Value Reference Range Interpretation Comments GLUBED (test code = GLUBED) 317 mg/dL 74-106 H Performed by certified auxiliary equipment operator at [facility] [id number] 23:49:00* Test Item Value Reference Range Interpretation Comments GLUBED (test code = GLUBED) 327 mg/dL 74-106 H Performed by certified auxiliary equipment operator at [facility] [id number] 22:15:00* Test Item Value Reference Range Interpretation Comments GLUBED (test code = GLUBED) 339 mg/dL 74-106 H Performed by certified auxiliary equipment operator at [facility] [id number] 19:59:00* Test Item Value Reference Range Interpretation Comments GLUBED (test code = GLUBED) 497 mg/dL 74-106 H Performed by certified auxiliary equipment operator at [facility] [id number] 18:29:00* Test Item Value Reference Range Interpretation Comments GLUBED (test code = GLUBED) > 500 mg/dL 74-106 HH [facility]~ [id number] 16:00:00* Test Item Value Reference Range Interpretation Comments GLUBED (test code = GLUBED) 377 mg/dL 74-106 H Performed by certified auxiliary equipment operator at [facility] [id number] 12:09:00* Test Item Value Reference Range Interpretation Comments GLUBED (test code = GLUBED) 441 mg/dL 74-106 H [facility] BASIC METABOLIC [id number] 08:19:00* Test Item Value Reference Range Interpretation [...] CA) 8.7 mg/dL 8.5-10.1 N BASIC METABOLIC [id number] 08:11:00* Test Item Value Reference Range Interpretation [...] CALCIUM (test code = CA) mg/dL 8.5-10.1 [id number] 08:00:00* Test Item Value Reference Range Interpretation Comments GLUBED (test code = GLUBED) 493 mg/dL 74-106 H [facility] auxiliary [facility] [id number] 02:13:00* Test Item Value Reference Range Interpretation Comments GLUBED (test code = GLUBED) > 500 mg/dL 74-106 HH [facility] auxiliary [facility] [id number] 02:13:00* Test Item Value Reference Range Interpretation Comments GLUBED (test code = GLUBED) > 500 mg/dL 74-106 HH [facility] certified auxiliary equipment [facility] [id number] 21:24:00* Test Item Value Reference Range Interpretation Comments GLUBED (test code = GLUBED) 497 mg/dL 74-106 H Performed by certified auxiliary equipment operator at [facility] [id number] 21:24:00* Test Item Value Reference Range Interpretation Comments GLUBED (test code = GLUBED) > 500 mg/dL 74-106 HH [facility] auxiliary [facility] BASIC METABOLIC [id number] 17:04:00* Test Item Value Reference Range Interpretation [...] CA) 8.6 mg/dL 8.5-10.1 N BASIC METABOLIC [id number] 16:49:00* Test Item Value Reference Range Interpretation [...] CALCIUM (test code = CA) mg/dL 8.5-10.1 [id number] 12:24:00* Test Item Value Reference Range Interpretation Comments GLUBED (test code = GLUBED) 344 mg/dL 74-106 H Performed by certified auxiliary equipment operator at [facility] CBC W/AUTO [id number] 08:32:00* Test Item Value Reference Range Interpretation [...] = MDIFF) NO, ONLY SCAN NEEDED DIFFERENTIAL [id number] 08:32:00* Test Item Value Reference Range Interpretation Comments STAIN ACCEPTABILITY (test code = STN ACCEPTABLE) STAIN ACCEPTABLE POLYCHROMASIA (test code = POLC) 1+ HYPOCHROMIA (test code = HYPO) 1+ POIKILOCYTOSIS (test code = POIK) 1+ ANISOCYTOSIS (test code = ANISO) 1+ PLATELET ESTIMATE (test code = PLTEST) ADEQUATE PLATELET MORPHOLOGY (test code = PLTMORPH) NORMAL URINALYSIS [id number] 07:09:00* Test Item Value Reference Range Interpretation [...] per HPF FEW Urine Source? Clean CatchURINALYSIS [id number] 07:05:00* Test Item Value Reference Range Interpretation [...] HPF NONE Urine Source? Clean CatchB-TYPE NATRIURETIC [id number] 06:41:00* Test Item Value Reference Range Interpretation Comments B-TYPE NATRIURETIC PEPTIDE (test code = BNP) 14.6 pgram/mL 0-100 N CBC W/AUTO [id number] 05:36:00* Test Item Value Reference Range Interpretation [...] = MDIFF) NO, ONLY SCAN NEEDED DIFFERENTIAL [id number] 05:36:00* Test Item Value Reference Range Interpretation Comments STAIN ACCEPTABILITY (test code = STN ACCEPTABLE) MORPHOLOGY COMMENT (test code = MOC) PLATELET ESTIMATE (test code = PLTEST) PLATELET MORPHOLOGY (test code = PLTMORPH) CBC W/AUTO [id number] 05:35:00* Test Item Value Reference Range Interpretation [...] = MDIFF) NO, ONLY SCAN NEEDED DIFFERENTIAL [id number] 05:35:00* Test Item Value Reference Range Interpretation Comments STAIN ACCEPTABILITY (test code = STN ACCEPTABLE) CABOT RINGS (test code = CAB) MORPHOLOGY COMMENT (test code = MOC) PLATELET ESTIMATE (test code = PLTEST) PLATELET MORPHOLOGY (test code = PLTMORPH) CBC W/AUTO [id number] 05:35:00* Test Item Value Reference Range Interpretation [...] = MDIFF) NO, ONLY SCAN NEEDED DIFFERENTIAL [id number] 05:35:00* Test Item Value Reference Range Interpretation Comments STAIN ACCEPTABILITY (test code = STN ACCEPTABLE) MORPHOLOGY COMMENT (test code = MOC) PLATELET ESTIMATE (test code = PLTEST) PLATELET MORPHOLOGY (test code = PLTMORPH) CBC W/AUTO [id number] 05:35:00* Test Item Value Reference Range Interpretation [...] = MDIFF) NO, ONLY SCAN NEEDED DIFFERENTIAL [id number] 05:35:00* Test Item Value Reference Range Interpretation Comments STAIN ACCEPTABILITY (test code = STN ACCEPTABLE) CABOT RINGS (test code = CAB) MORPHOLOGY COMMENT (test code = MOC) PLATELET ESTIMATE (test code = PLTEST) PLATELET MORPHOLOGY (test code = PLTMORPH) BASIC METABOLIC [id number] 05:31:00* Test Item Value Reference Range Interpretation [...] CA) 8.5 mg/dL 8.5-10.1 N HEPATIC FUNCTION [id number] 05:31:00* Test Item Value Reference Range Interpretation [...] reference range due to change in reagent. [id number] 05:31:00* Test Item Value Reference Range Interpretation Comments MAGNESIUM (test code = MAG) 2.1 mg/dL 1.8-2.4 N [id number] 05:31:00* Test Item Value Reference Range Interpretation Comments TROPONIN-I (test code = TROPI) <0.015 ng/mL 0-0.045 N COVID 19 INHOUSE [id number] 04:50:00* Test Item Value Reference Range Interpretation Comments COVID 19 INHOUSE AG (test code = [id number]) NEGATIVE Is patient requiring admission or transfer? YIndication for rapid COVID-19 testi ng: Mod Clinical Suspicion- XR CHEST 1 V 2020-01-24 04:35:00 FAX: Benjamin Francis MD [phone] [place]: B St: REG FAX: Anastacio Burgess MD Name: KALYANI TALAVERA [facility] : 1955 Age/S: 64/F [address] [facility] Unit #: [id number] Loc: [facility] [place] [address] Phys: Anastacio Burgess MD Acct: [id number] Dis Date: Status: REG ER PHONE #: [phone] Exam Date: 01/24/2020424 FAX #: [phone] Reason: SHORTNESS OF BREATH EXAMS: CPT CODE: [id number] XR CHEST 1 V 37213 EXAM: - XR CHEST 1 V HISTORY: [...] Masters; Anastacio Burgess MD Technologist: JACINDA LYONS [employer]UCK [employer] HEAVY Trnscrd Da te/Time/By: 01/24/2020 (0435) : By: [email or web address] [facility] Print D/T: S: 01/23 (0438) PAGE 1 Signed Report [id number] 12:58:00* Test Item Value Reference Range Interpretation Comments GLUBED (test code = GLUBED) 54 mg/dL 74-106 L Performed by certified auxiliary equipment operator at [facility] BASIC METABOLIC [id number] 09:17:00* Test Item Value Reference Range Interpretation [...] CA) 8.8 mg/dL 8.5-10.1 N BASIC METABOLIC [id number] 09:06:00* Test Item Value Reference Range Interpretation [...] CALCIUM (test code = CA) mg/dL 8.5-10.1 [id number] 08:29:00* Test Item Value Reference Range Interpretation Comments GLUBED (test code = GLUBED) 160 mg/dL 74-106 H Performed by certified auxiliary equipment operator at [facility] [id number] 20:47:00* Test Item Value Reference Range Interpretation Comments GLUBED (test code = GLUBED) 210 mg/dL 74-106 H Performed by certified auxiliary equipment operator at [facility] [id number] 18:37:00* Test Item Value Reference Range Interpretation Comments GLUBED (test code = GLUBED) 91 mg/dL 74-106 N Performed by certified auxiliary equipment operator at [facility] BASIC METABOLIC [id number] 17:55:00* Test Item Value Reference Range Interpretation [...] CA) 8.5 mg/dL 8.5-10.1 N BASIC METABOLIC [id number] 17:50:00* Test Item Value Reference Range Interpretation [...] CA) mg/dL 8.5-10.1 - XR CHEST 1 [id number] 17:38:00 FAX: Benjamin Francis MD [phone] [place]: St: ADM Name: KALYANI CATES [facility] : [birth year] Age/S: 64/F [address] [facility] Unit #: [id number] Loc: [address] [address] Phys: Benjamin Masters MD Acct: [id number] Dis Date: Status: ADM IN PHONE #: [phone] Exam Date: 01/13/2020 1531 FAX #: [phone] Reason: CHF EXAMS: CPT CODE: [id number] XR CHEST 1 V 99931 EXAM: Chest x-ray, one view; INFORMATION: Shortness of breath, CHF; IMPRESSION: Moderate improvement compared with the recent study from January 11, 2020: The heart is decreased in size; mild cardiomegaly remains. Lung bases are better demarcated indicating resolution of interstitial edema; mild left heart failure remains. Location code: [facility] at 1733 Reported and signed by: Jc Bravo M.D. CC: Benjamin Masters Technologist: RT Karlene(Megan) Trnscrd Date/Time/By: 01/13/2020 (173) : By: Dannielle Orig Print D/T: S: 01/13/2020 (3266) PAGE 1 Signed Report [id number] 17:22:00* Test Item Value Reference Range Interpretation Comments GLUBED (test code = GLUBED) 84 mg/dL 74-106 N Performed by certified auxiliary equipment operator at [facility] [id number] 16:46:00* Test Item Value Reference Range Interpretation Comments GLUBED (test code = GLUBED) 65 mg/dL 74-106 L Performed by certified auxiliary equipment operator at [facility] BRONCH LAVAGE FLD CELL CT/[id number] 15:32:00* Test Item Value Reference Range Interpretation [...] LYMPH[address] Carlyle Markham BRONCHIAL [id number] 14:21:00 RUN DATE: 01/13/20 [place] [facility] PAGE 1 RUN TIME: 1421 Specimen Inqui ry RUN USER: INTERFACE PATIENT: KALYANI TALAVERA ACCT #: [id number] LOC: [facility] U #: [id number] AGE/SX: 64/F ROOM: [facility] RE01/07/20REG DR: Benjamin Masters MD : [birth year] BED: A DIS: STATUS: ADM IN TLOC: SPEC #: [id number] RECD: 01/10/20 STATUS: SHREYA BROWN #: [id number] MARILEE: 01/10/20- SUBM DR: Benjamin Masters MD ENTERED: 01/10/20 SP TYPE: BRONCH WA OTHR DR: Ivett Valderrama i, MD, Kuldip Kumar MD Nassif, George M MDORDERED: GROSS COPIES TO: Ivett Christianson MD [address] [place] [address] Harry Gutierrez MD [address] [facility] [place] [address] Taz Bravo MD [address] [facility] [address] [place] [phone] Benjamin Murphy MD [address] [place] [address] PROCED URES: HEMANTH (01/13/20-1308) TISSUES: BRONCH LAVAGE - 60ML CLOUDY FLUID CLINICAL HISTORY COLLECTION DATE: 01/10/20 INTERSTITIAL LUNG DI SEASE FINAL DIAGNOSIS Left lingular bronchoalveolar lavage for cytol ogy and CD4/CD8 ratio: PULMONARY MACROPHAGES, NEUTROPHILS, AND A FEW COLU MNAR BRONCHIAL LINING CELLS NEGATIVE FOR MALIGNANCY CD4- CD8 RATIO 1.0: 1 (SEE INCLUDED ADX FLOW CYTOMETRY REPORT [id number]) CONTINUED ON NEXT PAGE RUN DATE: 01/13/20 [place] - Lab PAGE 2 RUN TIME: 1421 Specimen Inquiry RUN USER: INTERFACE -- SPEC #: [id number] PATIENT: KALYANI TALAVERA #[id number] (Continued) FINAL DIAGNOSIS (Continued) Krishna Simpson [address], [address] FLOW CYTOMETRY A Flow cytometry repo rt is received from [facility] Case No:[id number] the int erpretation is as follows: Clinical [...] developed and its performance characteristics determined by [facility] [employer] [facility]. It has not been cleared or approved by the U.S. Food and Drug Administrat ion.The FDA has determined that such clearance is not necessary. This test is us ed for clinicalpurposes. It should not be regarded as investigational or for res earch. This laboratory iscertified under the Clinical Laboratory Improvement [place] ndments of 1987 (CLIA-88) as CONTINUED ON NEXT PAGE RUN DATE: 01/13/20 [place] - Lab PAGE 3 RUN TIME: 1421 Speci men Inquiry RUN USER: INTERFACE SPEC #: [id number] PATIENT: KALYANI MOSES #[id number] (Continued) FLOW CYTOMETRY (Continued) qualified to perform high complexity clinical te sting. The above report was reviewed and interpretive comments are provided. The comments areapproved for the medical records of the identified patient with my electronic signature. Electronic SignatureLachelle Iyer, [facility] Counsel[facility] Aide CPT C ode(s): 91557,[phone]),43415 ICD Code(s): R89.7 The Technical and Professional components were performed at [facility], [address] [place] [address], [facility] [address], [place] [address] . MACROSCOPIC The specimen is designated as "left lingula BAL". It consists of 60 mL of cloudy fluid for processing and evaluation. Material will be submitted for CD4 CD8 ratio test. A cell block is prepared. GROSS PERFORMED AT [facility] [address] [place] [address] (X) MICROSCOPIC All of the stains, including any controls pe rformed, stain appropriately. MICROSCOPIC PERFORMED AT [facility] [address] [place] [address] [phone])[phone] PERFORMING SITE Diagnosis performed at: [facility] [address] [place], [place] [address] CONTINUED ON NEXT PAGE RUN DATE: 01/13/20 [place] - Lab PAGE 4 RUN TIME: 1421 Specimen Inquiry RUN USER: I JOSH S PEC #: [id number] PATIENT: KALYANI TALAVERA #[id number] (Continued) Signed SIGNATURE ON FILE Petty Lowe MD 01/13/20 1421 END OF REPORT GLUBED 2020-01-13 12:45:00* Test Item Value Reference Range Interpretation Comments GLUBED (test code = GLUBED) 105 mg/dL 74-106 N Performed by certified auxiliary equipment operator at [facility] [id number] 08:07:00* Test Item Value Reference Range Interpretation Comments GLUBED (test code = GLUBED) 92 mg/dL 74-106 N Performed by certified auxiliary equipment operator at [facility] [id number] 19:54:00* Test Item Value Reference Range Interpretation Comments GLUBED (test code = GLUBED) 149 mg/dL 74-106 H Performed by certified auxiliary equipment operator at [facility] [id number] 17:05:00* Test Item Value Reference Range Interpretation Comments GLUBED (test code = GLUBED) 127 mg/dL 74-106 H Performed by certified auxiliary equipment operator at [facility] [id number] 12:02:00* Test Item Value Reference Range Interpretation Comments GLUBED (test code = GLUBED) 209 mg/dL 74-106 H Performed by certified auxiliary equipment operator at [facility] [id number] 08:45:00* Test Item Value Reference Range Interpretation Comments GLUBED (test code = GLUBED) 175 mg/dL 74-106 H Performed by certified auxiliary equipment operator at [facility] B-TYPE NATRIURETIC [id number] 07:19:00* Test Item Value Reference Range Interpretation Comments B-TYPE NATRIURETIC PEPTIDE (test code = BNP) 28.74 pgram/mL 0-100 N COMPREHENSIVE METABOLIC [id number] 07:07:00* Test Item Value Reference Range Interpretation [...] due to change in reagent. COMPREHENSIVE METABOLIC [id number] 06:56:00* Test Item Value Reference Range Interpretation [...] code = ALKP) IUnit/L 45-117 CBC W/AUTO [id number] 06:51:00* Test Item Value Reference Range Interpretation [...] code = NRBC#) 0.00 K/mm3 0.0-0.1 N [id number] 20:46:00* Test Item Value Reference Range Interpretation Comments GLUBED (test code = GLUBED) 257 mg/dL 74-106 H Performed by certified auxiliary equipment operator at [facility] - XR CHEST 1 [id number] 18:25:00 FAX: Jolie Moscoso MD [phone] [place]: St: [facility] FAX: Benjamin Francis MD [phone] Name: KALYANI TALAVERA [facility] : 1955 Age/S: 64/F [address] [facility] Unit #: [id number] Loc: [address] [place] [address] Phys: Jolie Murray MD Acct: [id number] Dis Date: Status: ADM IN PHONE #: [phone] Exam Date: 01/11/2020 1825 FAX #: [phone] Reason: CHF EXAMS: CPT CODE: [id number] XR CHEST 1 V 73403 REASON FOR EXAM: CHF Exam Order Date: 01/11/2020 12:00 AM Ordering M.D.: Jolie Murray MD PROCEDURE: - XR CHEST 1 V [...] lung volumes with findings of CHF. Location: [facility] at 1825 Reported and signed by: Dago Goodson MD CC: Jolie Murray MD; Benjamin Masters Technologist: SCOOBY PARSONS, RT(R); TAWANNA HURTADO RT(R) Trnscrd Date/Time/By: 01/11/2020 (1824) : By: [email or web address] Orig Print D/T: S: 01/11/2020 (1827) PAGE 1 Signed Report [id number] 16:50:00* Test Item Value Reference Range Interpretation Comments GLUBED (test code = GLUBED) 262 mg/dL 74-106 H Performed by certified auxiliary equipment operator at [facility] [id number] 12:17:00* Test Item Value Reference Range Interpretation Comments GLUBED (test code = GLUBED) 348 mg/dL 74-106 H Performed by certified auxiliary equipment operator at [facility] [id number] 08:51:00* Test Item Value Reference Range Interpretation Comments GLUBED (test code = GLUBED) 361 mg/dL 74-106 H Performed by certified auxiliary equipment operator at [facility] BRONCH LAVAGE FLD CELL [id number] 22:17:00* Test Item Value Reference Range Interpretation [...] REVIEWED BY (test code = REVIEW) PATHOLOGIST [id number] 20:37:00* Test Item Value Reference Range Interpretation Comments GLUBED (test code = GLUBED) 334 mg/dL 74-106 H Performed by certified auxiliary equipment operator at [facility] [id number] 17:59:00* Test Item Value Reference Range Interpretation Comments GLUBED (test code = GLUBED) 310 mg/dL 74-106 H Performed by certified auxiliary equipment operator at [facility] [id number] 13:51:00* Test Item Value Reference Range Interpretation Comments GLUBED (test code = GLUBED) 260 mg/dL 74-106 H Performed by certified auxiliary equipment operator at [facility] BASIC METABOLIC [id number] 10:17:00* Test Item Value Reference Range Interpretation [...] CA) 8.6 mg/dL 8.5-10.1 N BASIC METABOLIC [id number] 10:13:00* Test Item Value Reference Range Interpretation [...] CALCIUM (test code = CA) mg/dL 8.5-10.1 [id number] 08:31:00* Test Item Value Reference Range Interpretation Comments GLUBED (test code = GLUBED) 191 mg/dL 74-106 H Performed by certified auxiliary equipment operator at [facility] CBC W/AUTO [id number] 07:02:00* Test Item Value Reference Range Interpretation [...] = MDIFF) NO, ONLY SCAN NEEDED DIFFERENTIAL [id number] 07:02:00* Test Item Value Reference Range Interpretation Comments STAIN ACCEPTABILITY (test code = STN ACCEPTABLE) STAIN ACCEPTABLE POLYCHROMASIA (test code = POLC) 1+ ANISOCYTOSIS (test code = ANISO) 2+ MICROCYTOSIS (test code = MICR) 2+ MORPHOLOGY COMMENT (test code = MOC) TEST NOT PERFORMED PLATELET ESTIMATE (test code = PLTEST) ADEQUATE PLATELET MORPHOLOGY (test code = PLTMORPH) NORMAL COMPREHENSIVE METABOLIC [id number] 05:34:00* Test Item Value Reference Range Interpretation [...] due to change in reagent. CBC W/AUTO [id number] 05:30:00* Test Item Value Reference Range Interpretation [...] = MDIFF) NO, ONLY SCAN NEEDED DIFFERENTIAL [id number] 05:30:00* Test Item Value Reference Range Interpretation Comments STAIN ACCEPTABILITY (test code = STN ACCEPTABLE) CABOT RINGS (test code = CAB) MORPHOLOGY COMMENT (test code = MOC) PLATELET ESTIMATE (test code = PLTEST) PLATELET MORPHOLOGY (test code = PLTMORPH) CBC W/AUTO [id number] 05:30:00* Test Item Value Reference Range Interpretation [...] = MDIFF) NO, ONLY SCAN NEEDED DIFFERENTIAL [id number] 05:30:00* Test Item Value Reference Range Interpretation Comments STAIN ACCEPTABILITY (test code = STN ACCEPTABLE) CABOT RINGS (test code = CAB) MORPHOLOGY COMMENT (test code = MOC) PLATELET ESTIMATE (test code = PLTEST) PLATELET MORPHOLOGY (test code = PLTMORPH) CBC W/AUTO [id number] 05:30:00* Test Item Value Reference Range Interpretation [...] = MDIFF) NO, ONLY SCAN NEEDED DIFFERENTIAL [id number] 05:30:00* Test Item Value Reference Range Interpretation Comments STAIN ACCEPTABILITY (test code = STN ACCEPTABLE) MORPHOLOGY COMMENT (test code = MOC) PLATELET ESTIMATE (test code = PLTEST) PLATELET MORPHOLOGY (test code = PLTMORPH) CBC W/AUTO [id number] 05:30:00* Test Item Value Reference Range Interpretation [...] = MDIFF) NO, ONLY SCAN NEEDED DIFFERENTIAL [id number] 05:30:00* Test Item Value Reference Range Interpretation Comments STAIN ACCEPTABILITY (test code = STN ACCEPTABLE) CABOT RINGS (test code = CAB) MORPHOLOGY COMMENT (test code = MOC) PLATELET ESTIMATE (test code = PLTEST) PLATELET MORPHOLOGY (test code = PLTMORPH) COMPREHENSIVE METABOLIC [id number] 05:24:00* Test Item Value Reference Range Interpretation [...] TOTAL (test code = ALKP) IUnit/L 45-117 [id number] 20:32:00* Test Item Value Reference Range Interpretation Comments GLUBED (test code = GLUBED) 108 mg/dL 74-106 H Performed by certified auxiliary equipment operator at [facility] [id number] 16:44:00* Test Item Value Reference Range Interpretation Comments GLUBED (test code = GLUBED) 125 mg/dL 74-106 H Performed by certified auxiliary equipment operator at [facility] Coronavirus 2019 nCoV [id number] 16:38:00* Test Item Value Reference Range Interpretation Comments Coronavirus 2019 nCoV Bedside (test code = COVNONPUIBED) Negative [id number] 12:17:00* Test Item Value Reference Range Interpretation Comments GLUBED (test code = GLUBED) 171 mg/dL 74-106 H Performed by certified auxiliary equipment operator at [facility] [id number] 08:34:00* Test Item Value Reference Range Interpretation Comments GLUBED (test code = GLUBED) 341 mg/dL 74-106 H Performed by certified auxiliary equipment operator at [facility] - CT CHEST W/[id number] 06:53:00 Name: KALYANI TALAVERA [facility] : 1955 Age/S: 64 / F [address] [facility] Unit #: [id number] Loc: [place] [address] Phys: Taz Bravo MD Acct: [id number] Dis Date: Status: ADM IN PHONE #: [phone] Exam Date: 01/08/2020 FAX #: [phone] Reason: interstitial lung disease, pulmonary HTN EXAMS: CPT CODE: [id number] CT CHEST W/CONTRAST 19342 HISTORY: Interstitial lung disease and pulmonary hypertension. [...] Solomon Chowdhury M.D. CC: Taz Bravo MD; Jolie Murray MD; Benjamin Masters Technologist:RADHA CLEMENTS(R)(CT); JORDEN CTDI: DLP: Trnscb Date/Time: 01/09/2020 (065 3) t.SDR.[email or web address] Orig Print D/T: S: 01/09/2020 (0656) YANETH VARGAS 1 Signed Report PROTHROMBIN [id number] 05:24:00* Test Item Value Reference Range Interpretation [...] (2.5-3.5) IS PATIENT ON ANTICOAGULANTS? NTHROMBOPLASTIN TIME [id number] 05:24:00* Test Item Value Reference Range Interpretation Comments THROMBOPLASTIN TIME PARTIAL (test code = PTT) 27.5 seconds 23.0-37. 0 N IS PATIENT ON ANTICOAGULANTS? [id number] 20:06:00* Test Item Value Reference Range Interpretation Comments GLUBED (test code = GLUBED) 162 mg/dL 74-106 H Performed by certified auxiliary equipment operator at [facility] [id number] 17:04:00* Test Item Value Reference Range Interpretation Comments GLUBED (test code = GLUBED) 135 mg/dL 74-106 H Performed by certified auxiliary equipment operator at [facility] [id number] 12:10:00* Test Item Value Reference Range Interpretation Comments GLUBED (test code = GLUBED) 375 mg/dL 74-106 H Performed by certified auxiliary equipment operator at [facility] [id number] 08:11:00* Test Item Value Reference Range Interpretation Comments GLUBED (test code = GLUBED) 259 mg/dL 74-106 H Performed by certified auxiliary equipment operator at [facility] CBC W/AUTO [id number] 05:20:00* Test Item Value Reference Range Interpretation [...] = MDIFF) NO, ONLY SCAN NEEDED DIFFERENTIAL [id number] 05:20:00* Test Item Value Reference Range Interpretation [...] (test code = PLTMORPH) NORMAL B-TYPE NATRIURETIC [id number] 05:03:00* Test Item Value Reference Range Interpretation Comments B-TYPE NATRIURETIC PEPTIDE (test code = BNP) 24.60 pgram/mL 0-100 N COMPREHENSIVE METABOLIC [id number] 04:59:00* Test Item Value Reference Range Interpretation [...] due to change in reagent. COMPREHENSIVE METABOLIC [id number] 04:50:00* Test Item Value Reference Range Interpretation [...] code = ALKP) IUnit/L 45-117 CBC W/AUTO [id number] 04:45:00* Test Item Value Reference Range Interpretation [...] = MDIFF) NO, ONLY SCAN NEEDED DIFFERENTIAL [id number] 04:45:00* Test Item Value Reference Range Interpretation Comments STAIN ACCEPTABILITY (test code = STN ACCEPTABLE) CABOT RINGS (test code = CAB) MORPHOLOGY COMMENT (test code = MOC) PLATELET ESTIMATE (test code = PLTEST) PLATELET MORPHOLOGY (test code = PLTMORPH) CBC W/AUTO [id number] 04:45:00* Test Item Value Reference Range Interpretation [...] = MDIFF) NO, ONLY SCAN NEEDED DIFFERENTIAL [id number] 04:45:00* Test Item Value Reference Range Interpretation Comments STAIN ACCEPTABILITY (test code = STN ACCEPTABLE) CABOT RINGS (test code = CAB) MORPHOLOGY COMMENT (test code = MOC) PLATELET ESTIMATE (test code = PLTEST) PLATELET MORPHOLOGY (test code = PLTMORPH) CBC W/AUTO [id number] 04:45:00* Test Item Value Reference Range Interpretation [...] = MDIFF) NO, ONLY SCAN NEEDED DIFFERENTIAL [id number] 04:45:00* Test Item Value Reference Range Interpretation Comments STAIN ACCEPTABILITY (test code = STN ACCEPTABLE) MORPHOLOGY COMMENT (test code = MOC) PLATELET ESTIMATE (test code = PLTEST) PLATELET MORPHOLOGY (test code = PLTMORPH) CBC W/AUTO [id number] 04:45:00* Test Item Value Reference Range Interpretation [...] = MDIFF) NO, ONLY SCAN NEEDED DIFFERENTIAL [id number] 04:45:00* Test Item Value Reference Range Interpretation Comments STAIN ACCEPTABILITY (test code = STN ACCEPTABLE) CABOT RINGS (test code = CAB) MORPHOLOGY COMMENT (test code = MOC) PLATELET ESTIMATE (test code = PLTEST) PLATELET MORPHOLOGY (test code = PLTMORPH) [id number] 23:24:00* Test Item Value Reference Range Interpretation Comments GLUBED (test code = GLUBED) 292 mg/dL 74-106 H Performed by certified auxiliary equipment operator at [facility] [id number] 19:46:00* Test Item Value Reference Range Interpretation Comments GLUBED (test code = GLUBED) 306 mg/dL 74-106 H Performed by certified auxiliary equipment operator at [facility] - XR CHEST 1 [id number] 19:39:00 FAX: Taz Mccormick MD [phone] [place]: St: ADM FAX: Jolie Moscoso MD [phone] FAX: Benjamin Francis MD [phone] Name: KALYANI TALAVERA [facility] : 1955 Age/S: 64/F [address] [facility] Unit #: [id number] Loc: V[address] [place] [address] Phys: Taz Bravo MD Acct: [id number] Dis Date: Status: ADM IN PH ONE #: [phone] Exam Date: 01/07/2020 1835 FAX #: [phone] Reason: chf EXAMS: CPT CODE: [id number] XR CHEST 1 V 93051 EXAM: Chest x- ray, one view; INFORMATION: [...] Jc Bravo M.D. CC: Taz Bravo MD; Jolie Murray MD; Benjamin Masters Technologist: Sagar Ruiz, RT(R Trnscrd Date/Time/By: 01/07/2020 (1938) : By: Dannielle Orig Print D/T: S: 0 01/07/2020 (1941) PAGE 1 Signed Re port [id number] 16:14:00* Test Item Value Reference Range Interpretation Comments GLUBED (test code = GLUBED) 67 mg/dL 74-106 L Performed by certified auxiliary equipment operator at [facility] [id number] 11:11:00* Test Item Value Reference Range Interpretation Comments GLUBED (test code = GLUBED) 320 mg/dL 74-106 H Performed by certified auxiliary equipment operator at [facility] [id number] 07:56:00* Test Item Value Reference Range Interpretation Comments GLUBED (test code = GLUBED) 426 mg/dL 74-106 H Performed by certified auxiliary equipment operator at [facility] [id number] 20:36:00* Test Item Value Reference Range Interpretation Comments GLUBED (test code = GLUBED) > 500 mg/dL 74-106 HH [facility]~ - US CHST W/[id number] 20:29:00 Name: KALYANI TALAVERA [facility] : 1955 Age/S: 64 / F [address] [facility] Unit #: [id number] Loc: [place], [place] [address] Phys: Taz Bravo MD Acct: [id number] Dis Date: Status: ADM IN PHONE #: [phone] Exam Date: 01/06/2020 1950 FAX #: [phone] Reason: pleural effusions EXAMS: CPT CODE: [id number] US CHST W/MEDIASTINUM 84429 EXAM: Ultrasound of the chest; INFORMATION: Shortness of breath, pleural effusions? IMPRESSION: No sonographic evidence of pleural effusions. Location code: [facility] at 2028 Reported and signed by: Jc Bravo M.D. CC: Taz Bravo MD; Benjamin Masters Technologist: Tamy Lanier RDMS Trnscb Date/Time: 01/06/2020 (2028) Dannielle Orig Print D/T: S: 01/06/2020 (2031) Probe: PAGE 1 Signed Report [id number] 18:13:00* Test Item Value Reference Range Interpretation Comments GLUBED (test code = GLUBED) > 500 mg/dL 74-106 HH [facility]~ [id number] 16:16:00* Test Item Value Reference Range Interpretation Comments GLUBED (test code = GLUBED) > 500 mg/dL 74-106 HH [facility] [id number] 13:43:00* Test Item Value Reference Range Interpretation Comments TROPONIN-I (test code = TROPI) <0.015 ng/mL 0-0.045 N COMMENTS TO SENIOR WINDOWS ADMINISTRATOR: COLLECT 3 HOURS AFTER PREVIOUS SAMPLEB-TYPE NATRIURETIC [id number] 10:13:00* Test Item Value Reference Range Interpretation Comments B-TYPE NATRIURETIC PEPTIDE (test code = BNP) 44.58 pgram/mL 0-100 N BASIC METABOLIC [id number] 06:56:00* Test Item Value Reference Range Interpretation [...] code = CA) 8.8 mg/dL 8.5-10.1 N [id number] 06:56:00* Test Item Value Reference Range Interpretation Comments TROPONIN-I (test code = TROPI) <0.015 ng/mL 0-0.045 N BASIC METABOLIC [id number] 06:43:00* Test Item Value Reference Range Interpretation [...] CALCIUM (test code = CA) mg/dL 8.5-10.1 [id number] 06:43:00* Test Item Value Reference Range Interpretation Comments TROPONIN-I (test code = TROPI) ng/mL 0-0.045 CBC W/O [id number] 06:22:00* Test Item Value Reference Range Interpretation [...] fL 6.7-11.0 N - XR CHEST 1 [id number] 06:03:00 FAX: Colton Khalil MD [phone] [place]: St: [facility] FAX: Benjamin Francis MD [phone] Name: KALYANI TALAVERA [facility] : 1955 Age/S: 64/F [address] [facility] Unit #: [id number] Loc: [place] [address] Phys: Cotlon Khalil MD Acct: [id number] Dis Date: Status: REG ER PHONE #: [phone] Exam Date: 01/06/2020 0539 FAX #: [phone] Reason: Shortness of Breath EXAMS: CPT CODE: [id number] XR CHEST 1 V 90197 HISTORY: Shortness of breath Location: C3 COMPARISON:12/23/2019 FINDINGS: There is cardiomegaly with vascular congestion perihilar opacity. No pneumothorax. No other changes compared to prior study. IMPRESSION: 1. Findings of CHF/volume overload increased compared to prior exam. at 0603 Reported and signed by: Kizzy Dietrich MD CC: Colton Khalil MD; Benjamni Masters Technologist: Kizzy Cisse RT(R) Trnscrd Date/Time/By: 01/06/2020 (602) : By: [email or web address] Orig Print D/T: S: 01/06/2020 (605) PAGE 1 Signed Report [id number] 07:49:00* Test Item Value Reference Range Interpretation Comments GLUBED (test code = GLUBED) 237 mg/dL 74-106 H Performed by certified auxiliary equipment operator at [facility] BASIC METABOLIC [id number] 05:57:00* Test Item Value Reference Range Interpretation [...] CA) 8.5 mg/dL 8.5-10.1 N BASIC METABOLIC [id number] 05:49:00* Test Item Value Reference Range Interpretation [...] CALCIUM (test code = CA) mg/dL 8.5-10.1 [id number] 20:28:00* Test Item Value Reference Range Interpretation Comments GLUBED (test code = GLUBED) 211 mg/dL 74-106 H Performed by certified auxiliary equipment operator at [facility] [id number] 17:59:00* Test Item Value Reference Range Interpretation Comments GLUBED (test code = GLUBED) 254 mg/dL 74-106 H Performed by certified auxiliary equipment operator at [facility] [id number] 17:59:00* Test Item Value Reference Range Interpretation Comments GLUBED (test code = GLUBED) 259 mg/dL 74-106 H Performed by certified auxiliary equipment operator at [facility] BASIC METABOLIC [id number] 11:13:00* Test Item Value Reference Range Interpretation [...] CA) 8.2 mg/dL 8.5-10.1 L BASIC METABOLIC [id number] 11:08:00* Test Item Value Reference Range Interpretation [...] CALCIUM (test code = CA) mg/dL 8.5-10.1 [id number] 08:42:00* Test Item Value Reference Range Interpretation Comments GLUBED (test code = GLUBED) 195 mg/dL 74-106 H Performed by certified auxiliary equipment operator at [facility] [id number] 20:18:00* Test Item Value Reference Range Interpretation Comments GLUBED (test code = GLUBED) 238 mg/dL 74-106 H Performed by certified auxiliary equipment operator at [facility] [id number] 16:32:00* Test Item Value Reference Range Interpretation Comments GLUBED (test code = GLUBED) 149 mg/dL 74-106 H Performed by certified auxiliary equipment operator at [facility] [id number] 12:15:00* Test Item Value Reference Range Interpretation Comments GLUBED (test code = GLUBED) 189 mg/dL 74-106 H Performed by certified auxiliary equipment operator at [facility] BASIC METABOLIC [id number] 09:00:00* Test Item Value Reference Range Interpretation [...] code = CA) 8.4 mg/dL 8.5-10.1 L [id number] 09:00:00* Test Item Value Reference Range Interpretation Comments MAGNESIUM (test code = MAG) 1.9 mg/dL 1.8-2.4 N [id number] 07:52:00* Test Item Value Reference Range Interpretation Comments GLUBED (test code = GLUBED) 251 mg/dL 74-106 H Performed by certified auxiliary equipment operator at [facility] [id number] 22:38:00* Test Item Value Reference Range Interpretation Comments GLUBED (test code = GLUBED) 157 mg/dL 74-106 H Performed by certified auxiliary equipment operator at [facility] [id number] 21:25:00* Test Item Value Reference Range Interpretation Comments GLUBED (test code = GLUBED) 154 mg/dL 74-106 H Performed by certified auxiliary equipment operator at [facility] [id number] 16:46:00* Test Item Value Reference Range Interpretation Comments GLUBED (test code = GLUBED) 156 mg/dL 74-106 H Performed by certified auxiliary equipment operator at [facility] [id number] 10:44:00* Test Item Value Reference Range Interpretation Comments GLUBED (test code = GLUBED) 240 mg/dL 74-106 H Performed by certified auxiliary equipment operator at [facility] [id number] 07:55:00* Test Item Value Reference Range Interpretation Comments GLUBED (test code = GLUBED) 178 mg/dL 74-106 H Performed by certified auxiliary equipment operator at [facility] BASIC METABOLIC [id number] 06:00:00* Test Item Value Reference Range Interpretation [...] code = CA) 8.4 mg/dL 8.5-10.1 L [id number] 06:00:00* Test Item Value Reference Range Interpretation Comments MAGNESIUM (test code = MAG) 2.0 mg/dL 1.8-2.4 N [id number] 21:31:00* Test Item Value Reference Range Interpretation Comments GLUBED (test code = GLUBED) 461 mg/dL 74-106 H Performed by certified auxiliary equipment operator at [facility] [id number] 15:49:00* Test Item Value Reference Range Interpretation Comments GLUBED (test code = GLUBED) 400 mg/dL 74-106 H Performed by certified auxiliary equipment operator at [facility] [id number] 12:49:00* Test Item Value Reference Range Interpretation Comments GLUBED (test code = GLUBED) 339 mg/dL 74-106 H Performed by certified auxiliary equipment operator at [facility] [id number] 07:41:00* Test Item Value Reference Range Interpretation Comments GLUBED (test code = GLUBED) 328 mg/dL 74-106 H Performed by certified auxiliary equipment operator at [facility] BASIC METABOLIC [id number] 05:42:00* Test Item Value Reference Range Interpretation [...] CA) 8.5 mg/dL 8.5-10.1 N BASIC METABOLIC [id number] 05:33:00* Test Item Value Reference Range Interpretation [...] CALCIUM (test code = CA) mg/dL 8.5-10.1 [id number] 03:29:00* Test Item Value Reference Range Interpretation Comments GLUBED (test code = GLUBED) 221 mg/dL 74-106 H Performed by certified auxiliary equipment operator at [facility] [id number] 20:20:00* Test Item Value Reference Range Interpretation Comments GLUBED (test code = GLUBED) 406 mg/dL 74-106 H Performed by certified auxiliary equipment operator at [facility] [id number] 18:02:00* Test Item Value Reference Range Interpretation Comments TROPONIN-I (test code = TROPI) <0.015 ng/mL 0-0.045 N COMMENTS TO SENIOR WINDOWS ADMINISTRATOR: COLLECT 3 HOURS AFTER PREVIOUS [id number] 17:46:00* Test Item Value Reference Range Interpretation Comments MAGNESIUM (test code = MAG) 2.0 mg/dL 1.8-2.4 N [id number] 17:35:00* Test Item Value Reference Range Interpretation Comments GLUBED (test code = GLUBED) 363 mg/dL 74-106 H Performed by certified auxiliary equipment operator at [facility] [id number] 13:25:00* Test Item Value Reference Range Interpretation Comments TROPONIN-I (test code = TROPI) <0.015 ng/mL 0-0.045 N COMMENTS TO SENIOR WINDOWS ADMINISTRATOR: COLLECT 3 HOURS AFTER PREVIOUS SAMPLEURINALYSIS [id number] 10:05:00* Test Item Value Reference Range Interpretation [...] #/HPF NONE A Urine Source? Clean CatchURINALYSIS [id number] 10:05:00* Test Item Value Reference Range Interpretation [...] NONE A Urine Source? [facility] [id number] 07:24:00* Test Item Value Reference Range Interpretation Comments Coronavirus 2019 [facility] Bedside (test code = [id number]) Negative Is patient requiring admission or transfer? [...] = MDIFF) NO, ONLY SCAN NEEDED DIFFERENTIAL [id number] 07:22:00* Test Item Value Reference Range Interpretation Comments STAIN ACCEPTABILITY (test code = STN ACCEPTABLE) STAIN ACCEPTABLE POLYCHROMASIA (test code = POLC) 1+ POIKILOCYTOSIS (test code = POIK) 1+ ANISOCYTOSIS (test code = ANISO) 1+ MICROCYTOSIS (test code = MICR) 1+ PLATELET ESTIMATE (test code = PLTEST) DECREASED PLATELET MORPHOLOGY (test code = PLTMORPH) NORMAL B-TYPE NATRIURETIC [id number] 07:19:00* Test Item Value Reference Range Interpretation Comments B-TYPE NATRIURETIC PEPTIDE (test code = BNP) 38.62 pgram/mL 0-100 N BASIC METABOLIC [id number] 06:41:00* Test Item Value Reference Range Interpretation [...] CA) 8.7 mg/dL 8.5-10.1 N HEPATIC FUNCTION [id number] 06:41:00* Test Item Value Reference Range Interpretation [...] reference range due to change in reagent. [id number] 06:41:00* Test Item Value Reference Range Interpretation Comments LIPASE (test code = LIP) 91 U/L 73.0-393.0 N [id number] 06:41:00* Test Item Value Reference Range Interpretation Comments TROPONIN-I (test code = TROPI) <0.015 ng/mL 0-0.045 N PROTHROMBIN [id number] 06:31:00* Test Item Value Reference Range Interpretation [...] (2.5-3.5) IS PATIENT ON ANTICOAGULANTS? NTHROMBOPLASTIN TIME [id number] 06:31:00* Test Item Value Reference Range Interpretation Comments THROMBOPLASTIN TIME PARTIAL (test code = PTT) 30.8 seconds 23.0-37. 0 N IS PATIENT ON ANTICOAGULANTS? NCBC W/AUTO [id number] 06:30:00* Test Item Value Reference Range Interpretation [...] = MDIFF) NO, ONLY SCAN NEEDED DIFFERENTIAL [id number] 06:30:00* Test Item Value Reference Range Interpretation Comments STAIN ACCEPTABILITY (test code = STN ACCEPTABLE) CABOT RINGS (test code = CAB) MORPHOLOGY COMMENT (test code = MOC) PLATELET ESTIMATE (test code = PLTEST) PLATELET MORPHOLOGY (test code = PLTMORPH) BASIC METABOLIC [id number] 06:30:00* Test Item Value Reference Range Interpretation [...] code = CA) mg/dL 8.5-10.1 HEPATIC FUNCTION [id number] 06:30:00* Test Item Value Reference Range Interpretation [...] TOTAL (test code = ALKP) IUnit/L 45-117 [id number] 06:30:00* Test Item Value Reference Range Interpretation Comments LIPASE (test code = LIP) U/L 73.0-393.0 [id number] 06:30:00* Test Item Value Reference Range Interpretation Comments TROPONIN-I (test code = TROPI) ng/mL 0-0.045 CBC W/AUTO [id number] 06:30:00* Test Item Value Reference Range Interpretation [...] = MDIFF) NO, ONLY SCAN NEEDED DIFFERENTIAL [id number] 06:30:00* Test Item Value Reference Range Interpretation Comments STAIN ACCEPTABILITY (test code = STN ACCEPTABLE) CABOT RINGS (test code = CAB) MORPHOLOGY COMMENT (test code = MOC) PLATELET ESTIMATE (test code = PLTEST) PLATELET MORPHOLOGY (test code = PLTMORPH) CBC W/AUTO [id number] 06:30:00* Test Item Value Reference Range Interpretation [...] = MDIFF) NO, ONLY SCAN NEEDED DIFFERENTIAL [id number] 06:30:00* Test Item Value Reference Range Interpretation Comments STAIN ACCEPTABILITY (test code = STN ACCEPTABLE) MORPHOLOGY COMMENT (test code = MOC) PLATELET ESTIMATE (test code = PLTEST) PLATELET MORPHOLOGY (test code = PLTMORPH) CBC W/AUTO [id number] 06:30:00* Test Item Value Reference Range Interpretation [...] = MDIFF) NO, ONLY SCAN NEEDED DIFFERENTIAL [id number] 06:30:00* Test Item Value Reference Range Interpretation Comments STAIN ACCEPTABILITY (test code = STN ACCEPTABLE) CABOT RINGS (test code = CAB) MORPHOLOGY COMMENT (test code = MOC) PLATELET ESTIMATE (test code = PLTEST) PLATELET MORPHOLOGY (test code = PLTMORPH) - XR CHEST 1 [id number] 05:45:00 FAX: Benjamin Francis MD [phone] [place]: St: [facility] FAX: Leonora Norton [phone] Name: KALYANI TALAVERA [facility] : 1955 Age/S: 64/F [address] [facility] Unit #: [id number] Loc: [place] [address] Phys: Leonora Goins MD Acct: [id number] Dis Date: Status: REG ER PHONE #: [phone] Exam Date: 12/23/2019530 FAX #: [phone] Reason: SHORTNESS OF BREATH EXAMS: CPT CODE: [id number] XR CHEST 1 V 99898 AFTER HOURS SERVICE ON: 12/23/2019 5:44 AM [...] By: [email or web address] Orig Print D/T: S: 12/23/2019 (0574) PAGE 1 Signed Report B-TYPE NATRIURETIC [id number] 05:44:00* Test Item Value Reference Range Interpretation Comments B-TYPE NATRIURETIC PEPTIDE (test code = BNP) 38.94 pgram/mL 0-100 N Coronavirus 2018 nCoV [id number] 04:56:00* Test Item Value Reference Range Interpretation Comments Coronavirus 2019 nCoV Bedside (test code = [id number]) Negative Is patient requiring admission or transfer? YIndication for rapid COVID-19 testi ng: Mod Clinical SuspicionBASIC METABOLIC [id number] 04:48:00* Test Item Value Reference Range Interpretation [...] code = CA) 8.8 mg/dL 8.5-10.1 N [id number] 04:48:00* Test Item Value Reference Range Interpretation Comments TROPONIN-I (test code = TROPI) <0.015 ng/mL 0-0.045 N CBC W/O [id number] 04:39:00* Test Item Value Reference Range Interpretation [...] MPV) 10.6 fL 6.7-11.0 N BASIC METABOLIC [id number] 04:37:00* Test Item Value Reference Range Interpretation [...] CALCIUM (test code = CA) mg/dL 8.5-10.1 [id number] 04:37:00* Test Item Value Reference Range Interpretation Comments TROPONIN-I (test code = TROPI) ng/mL 0-0.045 - XR CHEST 1 [id number] 03:58:00 FAX: Benjamin Francis MD [phone] [place]: B St: REG FAX: Vince Jones DO Name: KALYANI TALAVERA [facility] : 1955 Age/S: 64/F [address] Unit #: [id number] Loc: [place] [address] Phys: Vince Jones DO Acct: [id number] Dis Date: Status: REG ER PHONE #: [phone] Exam Date: 12/16/2019 0345 FAX #: [phone] Reason: Shortness of Breath EXAMS: CPT CODE: [id number] XR CHEST 1 V 43853 EXAM: - XR CHEST 1 V HISTORY: [...] Masters; Vince Jones DO Technologist: SAMPSON VALDEZ) Trn jose Date/Time/By: 12/16/2019 (0358) : By: [email or web address] Orig Print D/T: S : 12/16/2019 (0408) PAGE 1 Signed Report B-TYPE NATRIURETIC [id number] 03:51:00* Test Item Value Reference Range Interpretation Comments B-TYPE NATRIURETIC PEPTIDE (test code = BNP) 93.94 pgram/mL 0-100 N BASIC METABOLIC [id number] 03:42:00* Test Item Value Reference Range Interpretation [...] code = CA) 8.9 mg/dL 8.5-10.1 N [id number] 03:42:00* Test Item Value Reference Range Interpretation Comments TROPONIN-I (test code = TROPI) <0.015 ng/mL 0-0.045 N - XR CHEST 1 [id number] 03:13:00 FAX: Jani Roque [phone] [place]: St: REG FAX: Benjamin Francis MD [phone] Name: KALYANI TALAVERA [facility] : 1955 Age/S: 64/F [address] Unit #: [id number] Loc: [place] [address] Phys: Jani Roque MD Acct: [id number] Dis Date: Status: REG ER PHONE #: [phone] Exam Date: 12/12/2019232 FAX #: [phone] Reason: Shortness of Breath EXAMS: CPT CODE: [id number] XR CHEST 1 V 73386 - XR CHEST 1 V, 12/12/2019 2:26 [...] 12/12/2019 (315) PAGE 1 Signed Report PROTHROMBIN [id number] 03:11:00* Test Item Value Reference Range Interpretation [...] (2.5-3.5) IS PATIENT ON ANTICOAGULANTS? NTHROMBOPLASTIN TIME [id number] 03:11:00* Test Item Value Reference Range Interpretation Comments THROMBOPLASTIN TIME PARTIAL (test code = PTT) 33.6 seconds 23.0-37. 0 N IS PATIENT ON ANTICOAGULANTS? NBASIC METABOLIC [id number] 03:05:00* Test Item Value Reference Range Interpretation [...] code = CA) 8.9 mg/dL 8.5-10.1 N [id number] 03:05:00* Test Item Value Reference Range Interpretation Comments TROPONIN-I (test code = TROPI) ng/mL 0-0.045 CBC W/O [id number] 02:54:00* Test Item Value Reference Range Interpretation [...] code = MPV) 10.0 fL 6.7-11.0 N [id number] 15:43:00* Test Item Value Reference Range Interpretation Comments GLUBED (test code = GLUBED) 157 mg/dL 74-106 H Performed by certified auxiliary equipment operator at [facility] BASIC METABOLIC [id number] 14:27:00* Test Item Value Reference Range Interpretation [...] CA) 8.5 mg/dL 8.5-10.1 N BASIC METABOLIC [id number] 14:23:00* Test Item Value Reference Range Interpretation [...] code = CA) 8.5 mg/dL 8.5-10.1 N [id number] 11:31:00* Test Item Value Reference Range Interpretation Comments GLUBED (test code = GLUBED) 92 mg/dL 74-106 N Performed by certified auxiliary equipment operator at [facility] [id number] 07:50:00* Test Item Value Reference Range Interpretation Comments GLUBED (test code = GLUBED) 172 mg/dL 74-106 H Performed by certified auxiliary equipment operator at [facility] [id number] 00:32:00* Test Item Value Reference Range Interpretation Comments GLUBED (test code = GLUBED) 71 mg/dL 74-106 L Performed by certified auxiliary equipment operator at [facility] [id number] 21:13:00* Test Item Value Reference Range Interpretation Comments GLUBED (test code = GLUBED) 110 mg/dL 74-106 H Performed by certified auxiliary equipment operator at [facility] [id number] 16:45:00* Test Item Value Reference Range Interpretation Comments GLUBED (test code = GLUBED) 192 mg/dL 74-106 H [facility] BASIC METABOLIC [id number] 15:12:00* Test Item Value Reference Range Interpretation [...] code = CA) 8.3 mg/dL 8.5-10.1 L [id number] 15:12:00* Test Item Value Reference Range Interpretation Comments MAGNESIUM (test code = MAG) 2.2 mg/dL 1.8-2.4 N BASIC METABOLIC [id number] 15:07:00* Test Item Value Reference Range Interpretation [...] CALCIUM (test code = CA) mg/dL 8.5-10.1 [id number] 15:07:00* Test Item Value Reference Range Interpretation Comments MAGNESIUM (test code = MAG) mg/dL 1.8-2.4 [id number] 13:08:00* Test Item Value Reference Range Interpretation Comments GLUBED (test code = GLUBED) 107 mg/dL 74-106 H [facility] [id number] 08:18:00* Test Item Value Reference Range Interpretation Comments GLUBED (test code = GLUBED) 184 mg/dL 74-106 H [facility] [id number] 06:54:00* Test Item Value Reference Range Interpretation Comments GLUBED (test code = GLUBED) 141 mg/dL 74-106 H Performed by certified auxiliary equipment operator at [facility] [id number] 20:59:00* Test Item Value Reference Range Interpretation Comments GLUBED (test code = GLUBED) 100 mg/dL 74-106 N Performed by certified auxiliary equipment operator at [facility] [id number] 17:20:00* Test Item Value Reference Range Interpretation Comments GLUBED (test code = GLUBED) 152 mg/dL 74-106 H [facility] [id number] 16:08:00* Test Item Value Reference Range Interpretation Comments GLUBED (test code = GLUBED) 223 mg/dL 74-106 H Performed by certified auxiliary equipment operator at [facility] [id number] 12:35:00* Test Item Value Reference Range Interpretation Comments GLUBED (test code = GLUBED) 262 mg/dL 74-106 H Performed by certified auxiliary equipment operator at [facility] [id number] 08:13:00* Test Item Value Reference Range Interpretation Comments GLUBED (test code = GLUBED) 86 mg/dL 74-106 N Performed by certified auxiliary equipment operator at [facility] [id number] 23:34:00* Test Item Value Reference Range Interpretation Comments GLUBED (test code = GLUBED) 294 mg/dL 74-106 H Performed by certified auxiliary equipment operator at [facility] [id number] 20:47:00* Test Item Value Reference Range Interpretation Comments GLUBED (test code = GLUBED) 262 mg/dL 74-106 H Performed by certified auxiliary equipment operator at [facility] [id number] 16:20:00* Test Item Value Reference Range Interpretation Comments GLUBED (test code = GLUBED) 62 mg/dL 74-106 L Performed by certified auxiliary equipment operator at [facility] [id number] 12:23:00* Test Item Value Reference Range Interpretation Comments GLUBED (test code = GLUBED) 203 mg/dL 74-106 H Performed by certified auxiliary equipment operator at [facility] [id number] 08:24:00* Test Item Value Reference Range Interpretation Comments GLUBED (test code = GLUBED) 316 mg/dL 74-106 H Performed by certified auxiliary equipment operator at [facility] [id number] 20:06:00* Test Item Value Reference Range Interpretation Comments GLUBED (test code = GLUBED) 416 mg/dL 74-106 H Performed by certified auxiliary equipment operator at [facility] [id number] 15:45:00* Test Item Value Reference Range Interpretation Comments GLUBED (test code = GLUBED) 298 mg/dL 74-106 H [facility] [id number] 12:18:00* Test Item Value Reference Range Interpretation Comments TROPONIN-I (test code = TROPI) <0.015 ng/mL 0-0.045 N COMMENTS TO SENIOR WINDOWS ADMINISTRATOR: COLLECT 3 HOURS AFTER PREVIOUS [id number] 07:57:00* Test Item Value Reference Range Interpretation Comments TROPONIN-I (test code = TROPI) <0.015 ng/mL 0-0.045 N COMMENTS TO SENIOR WINDOWS ADMINISTRATOR: COLLECT 3 HOURS AFTER PREVIOUS SAMPLEB-TYPE NATRIURETIC [id number] 01:27:00* Test Item Value Reference Range Interpretation Comments B-TYPE NATRIURETIC PEPTIDE (test code = BNP) 88.96 pgram/mL 0-100 N BASIC METABOLIC [id number] 00:47:00* Test Item Value Reference Range Interpretation [...] code = CA) 8.8 mg/dL 8.5-10.1 N [id number] 00:47:00* Test Item Value Reference Range Interpretation Comments TROPONIN-I (test code = TROPI) <0.015 ng/mL 0-0.045 N CBC W/O [id number] 00:42:00* Test Item Value Reference Range Interpretation [...] MPV) 10.8 fL 6.7-11.0 N BASIC METABOLIC [id number] 00:36:00* Test Item Value Reference Range Interpretation [...] code = CA) 8.8 mg/dL 8.5-10.1 N [id number] 00:36:00* Test Item Value Reference Range Interpretation Comments TROPONIN-I (test code = TROPI) ng/mL 0-0.045 - XR CHEST 1 [id number] 00:02:00 FAX: Russ Malcolm MD [phone] [place]: St: REG FAX: Y Benjamin Masters MD [phone] Name: KALYANI TALAVERA [facility] : 1955 Age/S: 64/F [address] [facility] Unit #: [id number] Loc: [place] [address] Phys: Russ Malcolm MD Acct: [id number] Dis Date: Status: REG ER PHONE #: [phone] Exam Date: 12/03/2019 2352 FAX #: [phone] Reason: Shortness of Breath EXAMS: CPT CODE: [id number] XR CHEST 1 V [id number] Exam: AP chest Location: H 12 History: [...] S: 12/04/2019 (0005) PAGE 1 Signed Report [id number] 12:24:00* Test Item Value Reference Range Interpretation Comments GLUBED (test code = GLUBED) 151 mg/dL 74-106 H [facility] [id number] 08:12:00* Test Item Value Reference Range Interpretation Comments GLUBED (test code = GLUBED) 169 mg/dL 74-106 H [facility] certified auxiliary [facility] BASIC METABOLIC [id number] 06:37:00* Test Item Value Reference Range Interpretation [...] code = CA) 8.9 mg/dL 8.5-10.1 N [id number] 20:42:00* Test Item Value Reference Range Interpretation Comments GLUBED (test code = GLUBED) 223 mg/dL 74-106 H Performed by certified auxiliary equipment operator at [facility] [id number] 16:09:00* Test Item Value Reference Range Interpretation Comments GLUBED (test code = GLUBED) 205 mg/dL 74-106 H Performed by certified auxiliary equipment operator at [facility] [id number] 11:35:00* Test Item Value Reference Range Interpretation Comments GLUBED (test code = GLUBED) 338 mg/dL 74-106 H Performed by certified auxiliary equipment operator at [facility] [id number] 08:04:00* Test Item Value Reference Range Interpretation Comments GLUBED (test code = GLUBED) 240 mg/dL 74-106 H Performed by certified auxiliary equipment operator at [facility] BASIC METABOLIC [id number] 07:18:00* Test Item Value Reference Range Interpretation [...] CA) 8.6 mg/dL 8.5-10.1 N BASIC METABOLIC [id number] 07:14:00* Test Item Value Reference Range Interpretation [...] CALCIUM (test code = CA) mg/dL 8.5-10.1 [id number] 20:28:00* Test Item Value Reference Range Interpretation Comments GLUBED (test code = GLUBED) 343 mg/dL 74-106 H Performed by certified auxiliary equipment operator at [facility] [id number] 16:32:00* Test Item Value Reference Range Interpretation Comments GLUBED (test code = GLUBED) 279 mg/dL 74-106 H Performed by certified auxiliary equipment operator at [facility] [id number] 11:49:00* Test Item Value Reference Range Interpretation Comments GLUBED (test code = GLUBED) 290 mg/dL 74-106 H Performed by certified auxiliary equipment operator at [facility] URINALYSIS [id number] 10:01:00* Test Item Value Reference Range Interpretation [...] FEW #/HPF NONE A Urine Source? MidstreamURINALYSIS [id number] 10:00:00* Test Item Value Reference Range Interpretation [...] = BACU) per HPF NONE Urine Source? [id number] 08:37:00* Test Item Value Reference Range Interpretation Comments GLUBED (test code = GLUBED) 260 mg/dL 74-106 H Performed by certified auxiliary equipment operator at [facility] [id number] 05:57:00* Test Item Value Reference Range Interpretation Comments GLUBED (test code = GLUBED) 253 mg/dL 74-106 H Performed by certified auxiliary equipment operator at [facility] BASIC METABOLIC [id number] 05:52:00* Test Item Value Reference Range Interpretation [...] CA) 8.8 mg/dL 8.5-10.1 N BASIC METABOLIC [id number] 05:49:00* Test Item Value Reference Range Interpretation [...] CALCIUM (test code = CA) mg/dL 8.5-10.1 [id number] 23:00:00* Test Item Value Reference Range Interpretation Comments GLUBED (test code = GLUBED) 108 mg/dL 74-106 H Performed by certified auxiliary equipment operator at [facility] [id number] 22:22:00* Test Item Value Reference Range Interpretation Comments GLUBED (test code = GLUBED) 111 mg/dL 74-106 H Performed by certified auxiliary equipment operator at [facility] URINALYSIS [id number] 20:09:00* Test Item Value Reference Range Interpretation [...] = BACU) FEW #/HPF NONE Urine Source? [id number] 16:18:00* Test Item Value Reference Range Interpretation Comments GLUBED (test code = GLUBED) 196 mg/dL 74-106 H Performed by certified auxiliary equipment operator at [facility] [id number] 12:03:00* Test Item Value Reference Range Interpretation Comments GLUBED (test code = GLUBED) 190 mg/dL 74-106 H Performed by certified auxiliary equipment operator at [facility] [id number] 08:22:00* Test Item Value Reference Range Interpretation Comments GLUBED (test code = GLUBED) 264 mg/dL 74-106 H [facility] certified auxiliary [facility] BASIC METABOLIC [id number] 07:56:00* Test Item Value Reference Range Interpretation [...] CA) 8.6 mg/dL 8.5-10.1 N BASIC METABOLIC [id number] 05:39:00* Test Item Value Reference Range Interpretation [...] code = CA) mg/dL 8.5-10.1 CBC W/AUTO [id number] 05:19:00* Test Item Value Reference Range Interpretation [...] = MDIFF) NO, ONLY SCAN NEEDED DIFFERENTIAL [id number] 05:19:00* Test Item Value Reference Range Interpretation Comments STAIN ACCEPTABILITY (test code = STN ACCEPTABLE) STAIN ACCEPTABLE ANISOCYTOSIS (test code = ANISO) 2+ MICROCYTOSIS (test code = MICR) 2+ MORPHOLOGY COMMENT (test code = MOC) TEST NOT PERFORMED PLATELET ESTIMATE (test code = PLTEST) DECREASED PLATELET MORPHOLOGY (test code = PLTMORPH) NORMAL CBC W/AUTO [id number] 05:06:00* Test Item Value Reference Range Interpretation [...] = MDIFF) NO, ONLY SCAN NEEDED DIFFERENTIAL [id number] 05:06:00* Test Item Value Reference Range Interpretation Comments STAIN ACCEPTABILITY (test code = STN ACCEPTABLE) MORPHOLOGY COMMENT (test code = MOC) PLATELET ESTIMATE (test code = PLTEST) PLATELET MORPHOLOGY (test code = PLTMORPH) CBC W/AUTO [id number] 05:00:00* Test Item Value Reference Range Interpretation [...] = MDIFF) NO, ONLY SCAN NEEDED DIFFERENTIAL [id number] 05:00:00* Test Item Value Reference Range Interpretation Comments STAIN ACCEPTABILITY (test code = STN ACCEPTABLE) CABOT RINGS (test code = CAB) MORPHOLOGY COMMENT (test code = MOC) PLATELET ESTIMATE (test code = PLTEST) PLATELET MORPHOLOGY (test code = PLTMORPH) CBC W/AUTO [id number] 05:00:00* Test Item Value Reference Range Interpretation [...] = MDIFF) NO, ONLY SCAN NEEDED DIFFERENTIAL [id number] 05:00:00* Test Item Value Reference Range Interpretation Comments STAIN ACCEPTABILITY (test code = STN ACCEPTABLE) MORPHOLOGY COMMENT (test code = MOC) PLATELET ESTIMATE (test code = PLTEST) PLATELET MORPHOLOGY (test code = PLTMORPH) CBC W/AUTO [id number] 05:00:00* Test Item Value Reference Range Interpretation [...] = MDIFF) NO, ONLY SCAN NEEDED DIFFERENTIAL [id number] 05:00:00* Test Item Value Reference Range Interpretation Comments STAIN ACCEPTABILITY (test code = STN ACCEPTABLE) CABOT RINGS (test code = CAB) MORPHOLOGY COMMENT (test code = MOC) PLATELET ESTIMATE (test code = PLTEST) PLATELET MORPHOLOGY (test code = PLTMORPH) [id number] 20:25:00* Test Item Value Reference Range Interpretation Comments GLUBED (test code = GLUBED) 146 mg/dL 74-106 H Performed by certified auxiliary equipment operator at [facility] [id number] 15:10:00* Test Item Value Reference Range Interpretation Comments GLUBED (test code = GLUBED) 266 mg/dL 74-106 H Performed by certified auxiliary equipment operator at [facility] [id number] 11:49:00* Test Item Value Reference Range Interpretation Comments GLUBED (test code = GLUBED) 297 mg/dL 74-106 H Performed by certified auxiliary equipment operator at [facility] [id number] 07:56:00* Test Item Value Reference Range Interpretation Comments GLUBED (test code = GLUBED) 241 mg/dL 74-106 H Performed by certified auxiliary equipment operator at [facility] [id number] 20:49:00* Test Item Value Reference Range Interpretation Comments GLUBED (test code = GLUBED) 277 mg/dL 74-106 H [facility] auxiliary [facility] [id number] 16:24:00* Test Item Value Reference Range Interpretation Comments GLUBED (test code = GLUBED) 114 mg/dL 74-106 H Per[facility] certified auxiliary equipment [facility] [id number] 12:12:00* Test Item Value Reference Range Interpretation Comments GLUBED (test code = GLUBED) 229 mg/dL 74-106 H Per[facility] certified auxiliary equipment [facility] [id number] 08:05:00* Test Item Value Reference Range Interpretation Comments GLUBED (test code = GLUBED) 359 mg/dL 74-106 H Per[facility] certified auxiliary [facility] CBC W/AUTO [id number] 05:51:00* Test Item Value Reference Range Interpretation [...] = MDIFF) NO, ONLY SCAN NEEDED DIFFERENTIAL [id number] 05:51:00* Test Item Value Reference Range Interpretation [...] (test code = PLTMORPH) NORMAL COMPREHENSIVE METABOLIC [id number] 05:05:00* Test Item Value Reference Range Interpretation [...] due to change in reagent. COMPREHENSIVE METABOLIC [id number] 04:51:00* Test Item Value Reference Range Interpretation [...] code = ALKP) IUnit/L 45-117 CBC W/AUTO [id number] 04:41:00* Test Item Value Reference Range Interpretation [...] = MDIFF) NO, ONLY SCAN NEEDED DIFFERENTIAL [id number] 04:41:00* Test Item Value Reference Range Interpretation Comments STAIN ACCEPTABILITY (test code = STN ACCEPTABLE) CABOT RINGS (test code = CAB) MORPHOLOGY COMMENT (test code = MOC) PLATELET ESTIMATE (test code = PLTEST) PLATELET MORPHOLOGY (test code = PLTMORPH) CBC W/AUTO [id number] 04:41:00* Test Item Value Reference Range Interpretation [...] = MDIFF) NO, ONLY SCAN NEEDED DIFFERENTIAL [id number] 04:41:00* Test Item Value Reference Range Interpretation Comments STAIN ACCEPTABILITY (test code = STN ACCEPTABLE) CABOT RINGS (test code = CAB) MORPHOLOGY COMMENT (test code = MOC) PLATELET ESTIMATE (test code = PLTEST) PLATELET MORPHOLOGY (test code = PLTMORPH) CBC W/AUTO [id number] 04:41:00* Test Item Value Reference Range Interpretation [...] = MDIFF) NO, ONLY SCAN NEEDED DIFFERENTIAL [id number] 04:41:00* Test Item Value Reference Range Interpretation Comments STAIN ACCEPTABILITY (test code = STN ACCEPTABLE) MORPHOLOGY COMMENT (test code = MOC) PLATELET ESTIMATE (test code = PLTEST) PLATELET MORPHOLOGY (test code = PLTMORPH) CBC W/AUTO [id number] 04:41:00* Test Item Value Reference Range Interpretation [...] = MDIFF) NO, ONLY SCAN NEEDED DIFFERENTIAL [id number] 04:41:00* Test Item Value Reference Range Interpretation Comments STAIN ACCEPTABILITY (test code = STN ACCEPTABLE) CABOT RINGS (test code = CAB) MORPHOLOGY COMMENT (test code = MOC) PLATELET ESTIMATE (test code = PLTEST) PLATELET MORPHOLOGY (test code = PLTMORPH) [id number] 20:46:00* Test Item Value Reference Range Interpretation Comments GLUBED (test code = GLUBED) 242 mg/dL 74-106 H Performed by certified auxiliary equipment operator at [facility] [id number] 16:35:00* Test Item Value Reference Range Interpretation Comments GLUBED (test code = GLUBED) 345 mg/dL 74-106 H Per[facility] certified auxiliary [facility] BASIC METABOLIC [id number] 09:05:00* Test Item Value Reference Range Interpretation [...] CA) 8.7 mg/dL 8.5-10.1 N BASIC METABOLIC [id number] 09:00:00* Test Item Value Reference Range Interpretation [...] CALCIUM (test code = CA) mg/dL 8.5-10.1 [id number] 08:20:00* Test Item Value Reference Range Interpretation Comments GLUBED (test code = GLUBED) 349 mg/dL 74-106 H Per[facility] certified auxiliary [facility] CBC W/AUTO [id number] 06:48:00* Test Item Value Reference Range Interpretation [...] = MDIFF) NO, ONLY SCAN NEEDED DIFFERENTIAL [id number] 06:48:00* Test Item Value Reference Range Interpretation Comments STAIN ACCEPTABILITY (test code = STN ACCEPTABLE) STAIN ACCEPTABLE POLYCHROMASIA (test code = POLC) 2+ HYPOCHROMIA (test code = HYPO) 1+ ANISOCYTOSIS (test code = ANISO) 2+ MICROCYTOSIS (test code = MICR) 2+ PLATELET ESTIMATE (test code = PLTEST) DECREASED PLATELET MORPHOLOGY (test code = PLTMORPH) NORMAL COMPREHENSIVE METABOLIC [id number] 05:21:00* Test Item Value Reference Range Interpretation [...] due to change in reagent. COMPREHENSIVE METABOLIC [id number] 05:14:00* Test Item Value Reference Range Interpretation [...] code = ALKP) IUnit/L 45-117 CBC W/AUTO [id number] 05:08:00* Test Item Value Reference Range Interpretation [...] = MDIFF) NO, ONLY SCAN NEEDED DIFFERENTIAL [id number] 05:08:00* Test Item Value Reference Range Interpretation Comments STAIN ACCEPTABILITY (test code = STN ACCEPTABLE) CABOT RINGS (test code = CAB) MORPHOLOGY COMMENT (test code = MOC) PLATELET ESTIMATE (test code = PLTEST) PLATELET MORPHOLOGY (test code = PLTMORPH) CBC W/AUTO [id number] 05:08:00* Test Item Value Reference Range Interpretation [...] = MDIFF) NO, ONLY SCAN NEEDED DIFFERENTIAL [id number] 05:08:00* Test Item Value Reference Range Interpretation Comments STAIN ACCEPTABILITY (test code = STN ACCEPTABLE) CABOT RINGS (test code = CAB) MORPHOLOGY COMMENT (test code = MOC) PLATELET ESTIMATE (test code = PLTEST) PLATELET MORPHOLOGY (test code = PLTMORPH) CBC W/AUTO [id number] 05:08:00* Test Item Value Reference Range Interpretation [...] = MDIFF) NO, ONLY SCAN NEEDED DIFFERENTIAL [id number] 05:08:00* Test Item Value Reference Range Interpretation Comments STAIN ACCEPTABILITY (test code = STN ACCEPTABLE) MORPHOLOGY COMMENT (test code = MOC) PLATELET ESTIMATE (test code = PLTEST) PLATELET MORPHOLOGY (test code = PLTMORPH) CBC W/AUTO [id number] 05:08:00* Test Item Value Reference Range Interpretation [...] = MDIFF) NO, ONLY SCAN NEEDED DIFFERENTIAL [id number] 05:08:00* Test Item Value Reference Range Interpretation Comments STAIN ACCEPTABILITY (test code = STN ACCEPTABLE) CABOT RINGS (test code = CAB) MORPHOLOGY COMMENT (test code = MOC) PLATELET ESTIMATE (test code = PLTEST) PLATELET MORPHOLOGY (test code = PLTMORPH) [id number] 20:40:00* Test Item Value Reference Range Interpretation Comments GLUBED (test code = GLUBED) 160 mg/dL 74-106 H Performed by certified auxiliary equipment operator at [facility] Coronavirus 2019 nCoV [id number] 18:50:00* Test Item Value Reference Range Interpretation Comments Coronavirus 2019 nCoV Bedside (test code = HJBUT33RXOBI) Negative [id number] 16:03:00* Test Item Value Reference Range Interpretation Comments GLUBED (test code = GLUBED) 310 mg/dL 74-106 H [facility] auxiliary [facility] [id number] 11:57:00* Test Item Value Reference Range Interpretation Comments GLUBED (test code = GLUBED) 416 mg/dL 74-106 H [facility] certified auxiliary [facility] [id number] 08:07:00* Test Item Value Reference Range Interpretation Comments GLUBED (test code = GLUBED) 356 mg/dL 74-106 H Per[facility] certified auxiliary equipment [facility] BASIC METABOLIC [id number] 04:53:00* Test Item Value Reference Range Interpretation [...] code = CA) 8.5 mg/dL 8.5-10.1 N [id number] 04:53:00* Test Item Value Reference Range Interpretation Comments MAGNESIUM (test code = MAG) 1.9 mg/dL 1.8-2.4 N [id number] 23:55:00* Test Item Value Reference Range Interpretation Comments GLUBED (test code = GLUBED) 391 mg/dL 74-106 H Performed by certified auxiliary equipment operator at [facility] [id number] 20:25:00* Test Item Value Reference Range Interpretation Comments GLUBED (test code = GLUBED) 452 mg/dL 74-106 H [facility] auxiliary [facility] [id number] 20:15:00* Test Item Value Reference Range Interpretation Comments TROPONIN-I (test code = TROPI) <0.015 ng/mL 0-0.045 N COMMENTS TO SENIOR WINDOWS ADMINISTRATOR: COLLECT 3 HOURS AFTER PREVIOUS [id number] 17:14:00* Test Item Value Reference Range Interpretation Comments TROPONIN-I (test code = TROPI) <0.015 ng/mL 0-0.045 N COMMENTS TO SENIOR WINDOWS ADMINISTRATOR: COLLECT 3 HOURS AFTER PREVIOUS [id number] 15:52:00* Test Item Value Reference Range Interpretation Comments GLUBED (test code = GLUBED) 90 mg/dL 74-106 N Performed by certified auxiliary equipment operator at [facility] B-TYPE NATRIURETIC [id number] 10:43:00* Test Item Value Reference Range Interpretation Comments B-TYPE NATRIURETIC PEPTIDE (test code = BNP) 120.97 pgram/mL 0-100 H BASIC METABOLIC [id number] 10:37:00* Test Item Value Reference Range Interpretation [...] code = CA) 8.8 mg/dL 8.5-10.1 N [id number] 10:37:00* Test Item Value Reference Range Interpretation Comments TROPONIN-I (test code = TROPI) <0.015 ng/mL 0-0.045 N PROTHROMBIN [id number] 10:25:00* Test Item Value Reference Range Interpretation [...] (2.5-3.5) IS PATIENT ON ANTICOAGULANTS? NTHROMBOPLASTIN TIME [id number] 10:25:00* Test Item Value Reference Range Interpretation Comments THROMBOPLASTIN TIME PARTIAL (test code = PTT) 22.9 seconds 23.0-37. 0 L IS PATIENT ON ANTICOAGULANTS? NBASIC METABOLIC [id number] 10:22:00* Test Item Value Reference Range Interpretation [...] CALCIUM (test code = CA) mg/dL 8.5-10.1 [id number] 10:22:00* Test Item Value Reference Range Interpretation Comments TROPONIN-I (test code = TROPI) ng/mL 0-0.045 CBC W/O [id number] 10:15:00* Test Item Value Reference Range Interpretation [...] fL 6.7-11.0 N - XR CHEST 1 [id number] 10:04:00 FAX: Hardeep Douglas [phone] [place]: B St: [facility] FAX: Benjamin Francis MD [phone] Name: KALYANI TALAVERA [facility] : 1955 Age/S: 64/F [address] Unit #: [id number] Loc: V.[place], [place] [address] Phys: Hardeep Ann MD Acct: [id number] Dis Date: Status: REG ER PHONE #: [phone] Exam Date: 11/20/2019928 FAX #: [phone] Reason: Shortness of Breath EXAMS: CPT CODE: [id number] XR CHEST 1 V 43751 REASON FOR EXAM: Shortness of Breath Exam [...] chronic elevation of the right hemidiaphragm. Location: [facility] at 1004 Reported and signed by: Dago Goodson MD CC: Hardeep Ann MD; Benjamin Masters Technologist: SUSAN HAMMONDS JR Trnscrd Date/Time/By: 0 (1004) : By: [email or web address] Orig Print D/T: S: 11/20/2019 (1007) PAGE 1 Signed Report BASIC METABOLIC [id number] 15:36:00* Test Item Value Reference Range Interpretation [...] CA) 8.5 mg/dL 8.5-10.1 N BASIC METABOLIC [id number] 15:32:00* Test Item Value Reference Range Interpretation [...] CALCIUM (test code = CA) mg/dL 8.5-10.1 [id number] 11:56:00* Test Item Value Reference Range Interpretation Comments GLUBED (test code = GLUBED) 268 mg/dL 74-106 H Performed by certified auxiliary equipment operator at [facility] [id number] 08:34:00* Test Item Value Reference Range Interpretation Comments GLUBED (test code = GLUBED) 213 mg/dL 74-106 H Performed by certified auxiliary equipment operator at [facility] COMPREHENSIVE METABOLIC [id number] 06:54:00* Test Item Value Reference Range Interpretation [...] due to change in reagent. COMPREHENSIVE METABOLIC [id number] 06:39:00* Test Item Value Reference Range Interpretation [...] TOTAL (test code = ALKP) IUnit/L 45-117 [id number] 19:31:00* Test Item Value Reference Range Interpretation Comments GLUBED (test code = GLUBED) 307 mg/dL 74-106 H Performed by certified auxiliary equipment operator at [facility] BASIC METABOLIC [id number] 16:35:00* Test Item Value Reference Range Interpretation [...] CA) 8.9 mg/dL 8.5-10.1 N BASIC METABOLIC [id number] 16:30:00* Test Item Value Reference Range Interpretation [...] CALCIUM (test code = CA) mg/dL 8.5-10.1 [id number] 15:31:00* Test Item Value Reference Range Interpretation Comments GLUBED (test code = GLUBED) 155 mg/dL 74-106 H Performed by certified auxiliary equipment operator at [facility] [id number] 11:44:00* Test Item Value Reference Range Interpretation Comments GLUBED (test code = GLUBED) 180 mg/dL 74-106 H Performed by certified auxiliary equipment operator at [facility] [id number] 08:05:00* Test Item Value Reference Range Interpretation Comments GLUBED (test code = GLUBED) 236 mg/dL 74-106 H Performed by certified auxiliary equipment operator at [facility] COMPREHENSIVE METABOLIC [id number] 04:48:00* Test Item Value Reference Range Interpretation [...] due to change in reagent. COMPREHENSIVE METABOLIC [id number] 04:35:00* Test Item Value Reference Range Interpretation [...] TOTAL (test code = ALKP) IUnit/L 45-117 [id number] 20:09:00* Test Item Value Reference Range Interpretation Comments GLUBED (test code = GLUBED) 126 mg/dL 74-106 H Performed by certified auxiliary equipment operator at [facility] [id number] 15:38:00* Test Item Value Reference Range Interpretation Comments GLUBED (test code = GLUBED) 241 mg/dL 74-106 H Performed by certified auxiliary equipment operator at [facility] [id number] 11:39:00* Test Item Value Reference Range Interpretation Comments GLUBED (test code = GLUBED) 406 mg/dL 74-106 H Performed by certified auxiliary equipment operator at [facility] [id number] 07:56:00* Test Item Value Reference Range Interpretation Comments GLUBED (test code = GLUBED) 318 mg/dL 74-106 H Performed by certified auxiliary equipment operator at [facility] COMPREHENSIVE METABOLIC [id number] 04:33:00* Test Item Value Reference Range Interpretation [...] due to change in reagent. COMPREHENSIVE METABOLIC [id number] 04:24:00* Test Item Value Reference Range Interpretation [...] TOTAL (test code = ALKP) IUnit/L 45-117 [id number] 22:02:00* Test Item Value Reference Range Interpretation Comments GLUBED (test code = GLUBED) 108 mg/dL 74-106 H Performed by certified auxiliary equipment operator at [facility] [id number] 19:58:00* Test Item Value Reference Range Interpretation Comments GLUBED (test code = GLUBED) 117 mg/dL 74-106 H Performed by certified auxiliary equipment operator at [facility] [id number] 11:46:00* Test Item Value Reference Range Interpretation Comments GLUBED (test code = GLUBED) 277 mg/dL 74-106 H Performed by certified auxiliary equipment operator at [facility] [id number] 11:46:00* Test Item Value Reference Range Interpretation Comments GLUBED (test code = GLUBED) 286 mg/dL 74-106 H Performed by certified auxiliary equipment operator at [facility] [id number] 04:37:00* Test Item Value Reference Range Interpretation Comments FERRITIN (test code = DESI) 14 ng/mL 8-388 N FE W/TOTAL IRON BINDING CAP.2019-10-21 04:28:00* Test Item Value Reference Range Interpretation Comments SERUM IRON (test code = IRON) 65 ug/dL 50-175 N TOTAL IRON BINDING CAPACITY (test code = TIBC) 532 mcg/dL 250-450 H IRON SATURATION (test code = FESAT) 12.22 % 13-45 L [id number] 03:52:00* Test Item Value Reference Range Interpretation Comments GLUBED (test code = GLUBED) 287 mg/dL 74-106 H [facility] [id number] 20:27:00* Test Item Value Reference Range Interpretation Comments GLUBED (test code = GLUBED) 132 mg/dL 74-106 H [facility] [id number] 17:34:00* Test Item Value Reference Range Interpretation Comments GLUBED (test code = GLUBED) 167 mg/dL 74-106 H Performed by certified auxiliary equipment operator at [facility] [id number] 12:06:00* Test Item Value Reference Range Interpretation Comments GLUBED (test code = GLUBED) 271 mg/dL 74-106 H Performed by certified auxiliary equipment operator at [facility] - XR CHEST 1 [id number] 08:35:00 FAX: Taz Mccormick MD [phone] [place]: B St: [facility] FAX: Benjamin Francis MD [phone] Name: KALYANI TALAVERA [facility] : 1955 Age/S: 64/F [address] [facility] Unit #: [id number] Loc: V.[address] [place] [address] Phys: Taz Bravo MD Acct: [id number] Dis Date: Status: ADM IN PHONE #: [phone] Exam Date: 10/20/2019829 FAX #: [phone] Reason: chf EXAMS: CPT CODE: [id number] XR CHEST 1 V 92060 CLINICAL HISTORY: chf TECHNIQUE: AP chest x-ray [...] 234 mg/dL 74-106 H Performed by certified auxiliary equipment operator at [facility] CBC W/AUTO [id number] 05:46:00* Test Item Value Reference Range Interpretation [...] = MDIFF) NO, ONLY SCAN NEEDED DIFFERENTIAL [id number] 05:46:00* Test Item Value Reference Range Interpretation [...] (test code = PLTMORPH) NORMAL BASIC METABOLIC [id number] 05:36:00* Test Item Value Reference Range Interpretation [...] CA) 9.4 mg/dL 8.5-10.1 N BASIC METABOLIC [id number] 05:30:00* Test Item Value Reference Range Interpretation [...] code = CA) mg/dL 8.5-10.1 CBC W/AUTO [id number] 05:11:00* Test Item Value Reference Range Interpretation [...] = MDIFF) NO, ONLY SCAN NEEDED DIFFERENTIAL [id number] 05:11:00* Test Item Value Reference Range Interpretation Comments STAIN ACCEPTABILITY (test code = STN ACCEPTABLE) CABOT RINGS (test code = CAB) MORPHOLOGY COMMENT (test code = MOC) PLATELET ESTIMATE (test code = PLTEST) PLATELET MORPHOLOGY (test code = PLTMORPH) CBC W/AUTO [id number] 05:11:00* Test Item Value Reference Range Interpretation [...] = MDIFF) NO, ONLY SCAN NEEDED DIFFERENTIAL [id number] 05:11:00* Test Item Value Reference Range Interpretation Comments STAIN ACCEPTABILITY (test code = STN ACCEPTABLE) CABOT RINGS (test code = CAB) MORPHOLOGY COMMENT (test code = MOC) PLATELET ESTIMATE (test code = PLTEST) PLATELET MORPHOLOGY (test code = PLTMORPH) CBC W/AUTO [id number] 05:11:00* Test Item Value Reference Range Interpretation [...] = MDIFF) NO, ONLY SCAN NEEDED DIFFERENTIAL [id number] 05:11:00* Test Item Value Reference Range Interpretation Comments STAIN ACCEPTABILITY (test code = STN ACCEPTABLE) MORPHOLOGY COMMENT (test code = MOC) PLATELET ESTIMATE (test code = PLTEST) PLATELET MORPHOLOGY (test code = PLTMORPH) CBC W/AUTO [id number] 05:11:00* Test Item Value Reference Range Interpretation [...] = MDIFF) NO, ONLY SCAN NEEDED DIFFERENTIAL [id number] 05:11:00* Test Item Value Reference Range Interpretation Comments STAIN ACCEPTABILITY (test code = STN ACCEPTABLE) CABOT RINGS (test code = CAB) MORPHOLOGY COMMENT (test code = MOC) PLATELET ESTIMATE (test code = PLTEST) PLATELET MORPHOLOGY (test code = PLTMORPH) [id number] 19:55:00* Test Item Value Reference Range Interpretation Comments GLUBED (test code = GLUBED) 245 mg/dL 74-106 H Performed by certified auxiliary equipment operator at [facility] [id number] 17:25:00* Test Item Value Reference Range Interpretation Comments GLUBED (test code = GLUBED) 316 mg/dL 74-106 H Performed by certified auxiliary equipment operator at [facility] [id number] 12:03:00* Test Item Value Reference Range Interpretation Comments GLUBED (test code = GLUBED) 266 mg/dL 74-106 H Performed by certified auxiliary equipment operator at [facility] [id number] 11:55:00* Test Item Value Reference Range Interpretation Comments GLUBED (test code = GLUBED) 300 mg/dL 74-106 H Performed by certified auxiliary equipment operator at [facility] COMPREHENSIVE METABOLIC [id number] 04:36:00* Test Item Value Reference Range Interpretation [...] due to change in reagent. COMPREHENSIVE METABOLIC [id number] 04:25:00* Test Item Value Reference Range Interpretation [...] TOTAL (test code = ALKP) IUnit/L 45-117 [id number] 20:30:00* Test Item Value Reference Range Interpretation Comments GLUBED (test code = GLUBED) 202 mg/dL 74-106 H [facility] [id number] 18:41:00* Test Item Value Reference Range Interpretation Comments GLUBED (test code = GLUBED) 229 mg/dL 74-106 H Performed by certified auxiliary equipment operator at [facility] [id number] 15:56:00* Test Item Value Reference Range Interpretation Comments GLUBED (test code = GLUBED) 271 mg/dL 74-106 H Performed by certified auxiliary equipment operator at [facility] [id number] 15:00:00* Test Item Value Reference Range Interpretation Comments GLYCOSYLATED HEMOGLOBIN (HA1C) (test code = GLYHGB) 9.6 % HbA1 SUGGESTED DIAGNOSIS: HbA1C (%) Diabetic >6.4Prediabetes 5.7 - 6.4Normal <5.7 ESTIMATED AVERAGE GLUCOSE (test code = EAG) 229 MG/DL [id number] 11:26:00* Test Item Value Reference Range Interpretation Comments GLUBED (test code = GLUBED) 372 mg/dL 74-106 H Performed by certified auxiliary equipment operator at [facility] - XR CHEST 1 [id number] 08:31:00 FAX: Taz Mccormick MD [phone] [place]: St: [facility] FAX: Benjamin Francis MD [phone] Name: KALYANI TALAVERA [facility] : 1955 Age/S: 64/F [address] Unit #: [id number] Loc: V.[address] [place] [address] Phys: Taz Bravo MD Acct: [id number] Dis Date: Status: ADM IN PHONE #: [phone] Exam Date: 10/18/2019 0801 FAX #: [phone] Reason: chf EXAMS: CPT CODE: [id number] XR CHEST 1 V 09836 REASON FOR EXAM: chf Exam Order Date: 10/18/2019 5:00 AM Ordering MSamantha: Taz Bravo MD PROCEDURE: - XR CHEST [...] limits. IMPRESSION: No acute cardiopulmonary process. Location: [facility] Electronic ally Signed by Dago Goodson MD on 10/18/2019 at 0831 Repo rted and signed by: Dago Goodson MD CC: Taz Bravo MD; Benjamin Masters Technologist: SUSAN HAMMONDS JR Trnscrd Date/Time/By: 10/18/2019 (830) : By: [email or web address] Orig Print D/T: S: 10/18/2019 (0834) PAGE 1 Signed Report [id number] 07:40:00 * Test Item Value Reference Range Interpretation Comments GLUBED (test code = GLUBED) 391 mg/dL 74-106 H Performed by certified auxiliary equipment operator at [facility] COMPREHENSIVE METABOLIC [id number] 04:54:00* Test Item Value Reference Range Interpretation [...] reference range due to change in reagent. [id number] 04:54:00* Test Item Value Reference Range Interpretation Comments MAGNESIUM (test code = MAG) 1.8 mg/dL 1.8-2.4 N COMPREHENSIVE METABOLIC [id number] 04:45:00* Test Item Value Reference Range Interpretation [...] TOTAL (test code = ALKP) IUnit/L 45-117 [id number] 04:45:00* Test Item Value Reference Range Interpretation Comments MAGNESIUM (test code = MAG) mg/dL 1.8-2.4 CBC W/AUTO [id number] 04:28:00* Test Item Value Reference Range Interpretation [...] code = NRBC#) 0.00 K/mm3 0.0-0.1 N [id number] 23:49:00* Test Item Value Reference Range Interpretation Comments TROPONIN-I (test code = TROPI) 0.024 ng/mL 0-0.045 N COMMENTS TO SENIOR WINDOWS ADMINISTRATOR: COLLECT 3 HOURS AFTER PREVIOUS [id number] 20:30:00* Test Item Value Reference Range Interpretation Comments GLUBED (test code = GLUBED) 288 mg/dL 74-106 H Performed by certified auxiliary equipment operator at [facility] [id number] 19:35:00* Test Item Value Reference Range Interpretation Comments TROPONIN-I (test code = TROPI) 0.027 ng/mL 0-0.045 N COMMENTS TO SENIOR WINDOWS ADMINISTRATOR: COLLECT 3 HOURS AFTER PREVIOUS SAMPLE- CT CHEST W/O [id number] 18:12:00 Name: KALYANI TALAVERA [facility] : 1955 Age/S: 64 / F [address] Unit #: [id number] Loc: [place] [address] Phys: Pravin Christianson MD Acct: [id number] Dis Date: Status: ADM IN PHONE #: [phone] Exam Date: 10/17/2019 1800 FAX #: [phone] Reason: Dyspnea, Crackles in bases EXAMS: CPT CODE: [id number] CT CHEST W/O CONTRAST 97688 HISTORY: Dyspnea and crackles in the base. [...] 10/17/2019 (1811) t.SDR.TH4 PAGE 1 Signed Report [id number] 17:25:00* Test Item Value Reference Range Interpretation Comments MAGNESIUM (test code = MAG) 1.8 mg/dL 1.8-2.4 N [id number] 16:20:00* Test Item Value Reference Range Interpretation Comments GLUBED (test code = GLUBED) 221 mg/dL 74-106 H Performed by certified auxiliary equipment operator at [facility] B-TYPE NATRIURETIC [id number] 10:56:00* Test Item Value Reference Range Interpretation Comments B-TYPE NATRIURETIC PEPTIDE (test code = BNP) 58.67 pgram/mL 0-100 N BASIC METABOLIC [id number] 10:25:00* Test Item Value Reference Range Interpretation [...] code = CA) 8.6 mg/dL 8.5-10.1 N [id number] 10:25:00* Test Item Value Reference Range Interpretation Comments TROPONIN-I (test code = TROPI) 0.025 ng/mL 0-0.045 N BASIC METABOLIC [id number] 10:15:00* Test Item Value Reference Range Interpretation [...] CALCIUM (test code = CA) mg/dL 8.5-10.1 [id number] 10:15:00* Test Item Value Reference Range Interpretation Comments TROPONIN-I (test code = TROPI) ng/mL 0-0.045 CBC W/O [id number] 09:54:00* Test Item Value Reference Range Interpretation [...] fL 6.7-11.0 N - XR CHEST 1 [id number] 09:54:00 FAX: Patel Kulkarni MD [place]: B St: PRE FAX: Benjamin Francis MD [phone] Name: KALYANI TALAVERA [facility] : 1955 Age/S: 64/F [address] [facility] Unit #: [id number] Loc: [place] [address] Phys: Patel Kulkarni MD Acct: [id number] Dis Date: Status: PRE ER PHONE #: [phone] Exam Date: 10/17/201946 FAX #: [phone] Reason: Shortness of Breath EXAMS: CPT CODE: [id number] XR CHEST 1 V 11811 CLINICAL HISTORY: Shortness of Breath TECHNIQUE: AP [...] By: [email or web address] Orig Print D/T: S: 10/17/2019 (0971) PAGE 1 Signed Report [id number] 15:30:00* Test Item Value Reference Range Interpretation Comments GLUBED (test code = GLUBED) 138 mg/dL 74-106 H Performed by certified auxiliary equipment operator at [facility] COMPREHENSIVE METABOLIC [id number] 14:28:00* Test Item Value Reference Range Interpretation [...] due to change in reagent. COMPREHENSIVE METABOLIC [id number] 14:18:00* Test Item Value Reference Range Interpretation [...] code = ALKP) IUnit/L 45-117 CBC W/AUTO [id number] 13:43:00* Test Item Value Reference Range Interpretation [...] NRBC#) 0.02 K/mm3 0.0-0.1 N CBC W/AUTO [id number] 13:37:00* Test Item Value Reference Range Interpretation [...] # (test code = BA#) K/mm3 0.0-0.2 [id number] 12:24:00* Test Item Value Reference Range Interpretation Comments GLUBED (test code = GLUBED) 142 mg/dL 74-106 H Performed by certified auxiliary equipment operator at [facility] [id number] 07:57:00* Test Item Value Reference Range Interpretation Comments GLUBED (test code = GLUBED) 221 mg/dL 74-106 H Performed by certified auxiliary equipment operator at [facility] - XR CHEST 1 [id number] 21:23:00 FAX: Jolie Moscoso MD [phone] [place]: B St: [facility] FAX: Benjamin Francis MD [phone] Name: KALYANI TALAVERA [facility] : 1955 Age/S: 64/F [address] [facility] Unit #: [id number] Loc: V.[address] [place] [address] Phys: Jolie Murray MD Acct: [id number] Dis Date: Status: ADM IN PHONE #: [phone] Exam Date: 09/07/20192048 FAX #: [phone] Reason: ACUTE CHF EXAMS: CPT CODE: [id number] XR CHEST 1 V 82155 CLINICAL HISTORY: ACUTE CHF TECHNIQUE: AP chest x-ray COMPARISON: 09/03/19 IMPRESSION: No significant interval change. Low lung volumes with bibasilar subsegmental atelectasis. No airspace consolidation or pleural effusion. Mild cardiomegaly with pulmonary congestion. Mediastinal silhouette is unre markable. LOCATION: at 3 Reported and signed by: Kary Camacho D.O. CC: Jolie Osullivan MD; Benjamin Masters Technologist: Freda Guzman T(R); TAWANNA HURTADO RT(R) Trnscrd Date/Time/By: 09/07/2019 (2122) : By: [email or web address] Orig Print D/T: S: 09/07/2019 (2125) PAGE 1 Signed Report [id number] 20:44:00* Test Item Value Reference Range Interpretation Comments GLUBED (test code = GLUBED) 176 mg/dL 74-106 H Performed by certified auxiliary equipment operator at [facility] CBC W/AUTO [id number] 17:54:00* Test Item Value Reference Range Interpretation [...] = MDIFF) NO, ONLY SCAN NEEDED DIFFERENTIAL [id number] 17:54:00* Test Item Value Reference Range Interpretation Comments STAIN ACCEPTABILITY (test code = STN ACCEPTABLE) STAIN ACCEPTABLE ANISOCYTOSIS (test code = ANISO) 1+ PLATELET ESTIMATE (test code = PLTEST) DECREASED PLATELET MORPHOLOGY (test code = PLTMORPH) NORMAL COMPREHENSIVE METABOLIC [id number] 17:01:00* Test Item Value Reference Range Interpretation [...] reference range due to change in reagent. [id number] 17:00:00* Test Item Value Reference Range Interpretation Comments GLUBED (test code = GLUBED) 270 mg/dL 74-106 H Performed by certified auxiliary equipment operator at [facility] B-TYPE NATRIURETIC [id number] 17:00:00* Test Item Value Reference Range Interpretation Comments B-TYPE NATRIURETIC PEPTIDE (test code = BNP) 33.15 pgram/mL 0-100 N CBC W/AUTO [id number] 16:55:00* Test Item Value Reference Range Interpretation [...] = MDIFF) NO, ONLY SCAN NEEDED DIFFERENTIAL [id number] 16:55:00* Test Item Value Reference Range Interpretation Comments STAIN ACCEPTABILITY (test code = STN ACCEPTABLE) CABOT RINGS (test code = CAB) MORPHOLOGY COMMENT (test code = MOC) PLATELET ESTIMATE (test code = PLTEST) PLATELET MORPHOLOGY (test code = PLTMORPH) CBC W/AUTO [id number] 16:55:00* Test Item Value Reference Range Interpretation [...] = MDIFF) NO, ONLY SCAN NEEDED DIFFERENTIAL [id number] 16:55:00* Test Item Value Reference Range Interpretation Comments STAIN ACCEPTABILITY (test code = STN ACCEPTABLE) CABOT RINGS (test code = CAB) MORPHOLOGY COMMENT (test code = MOC) PLATELET ESTIMATE (test code = PLTEST) PLATELET MORPHOLOGY (test code = PLTMORPH) CBC W/AUTO [id number] 16:55:00* Test Item Value Reference Range Interpretation [...] = MDIFF) NO, ONLY SCAN NEEDED DIFFERENTIAL [id number] 16:55:00* Test Item Value Reference Range Interpretation Comments STAIN ACCEPTABILITY (test code = STN ACCEPTABLE) MORPHOLOGY COMMENT (test code = MOC) PLATELET ESTIMATE (test code = PLTEST) PLATELET MORPHOLOGY (test code = PLTMORPH) CBC W/AUTO [id number] 16:55:00* Test Item Value Reference Range Interpretation [...] = MDIFF) NO, ONLY SCAN NEEDED DIFFERENTIAL [id number] 16:55:00* Test Item Value Reference Range Interpretation Comments STAIN ACCEPTABILITY (test code = STN ACCEPTABLE) CABOT RINGS (test code = CAB) MORPHOLOGY COMMENT (test code = MOC) PLATELET ESTIMATE (test code = PLTEST) PLATELET MORPHOLOGY (test code = PLTMORPH) CBC W/AUTO [id number] 16:49:00* Test Item Value Reference Range Interpretation [...] code = BA#) K/mm3 0.0-0.2 COMPREHENSIVE METABOLIC [id number] 16:49:00* Test Item Value Reference Range Interpretation [...] TOTAL (test code = ALKP) IUnit/L 45-117 [id number] 12:09:00* Test Item Value Reference Range Interpretation Comments GLUBED (test code = GLUBED) 219 mg/dL 74-106 H Performed by certified auxiliary equipment operator at [facility] [id number] 08:21:00* Test Item Value Reference Range Interpretation Comments GLUBED (test code = GLUBED) 249 mg/dL 74-106 H Performed by certified auxiliary equipment operator at [facility] BASIC METABOLIC [id number] 06:22:00* Test Item Value Reference Range Interpretation [...] code = CA) 8.6 mg/dL 8.5-10.1 N [id number] 20:04:00* Test Item Value Reference Range Interpretation Comments GLUBED (test code = GLUBED) 282 mg/dL 74-106 H Performed by certified auxiliary equipment operator at [facility] [id number] 17:10:00* Test Item Value Reference Range Interpretation Comments GLUBED (test code = GLUBED) 210 mg/dL 74-106 H Performed by certified auxiliary equipment operator at [facility] [id number] 11:31:00* Test Item Value Reference Range Interpretation Comments GLUBED (test code = GLUBED) 179 mg/dL 74-106 H Performed by certified auxiliary equipment operator at [facility] BASIC METABOLIC [id number] 09:04:00* Test Item Value Reference Range Interpretation [...] CA) 8.7 mg/dL 8.5-10.1 N BASIC METABOLIC [id number] 08:59:00* Test Item Value Reference Range Interpretation [...] CALCIUM (test code = CA) mg/dL 8.5-10.1 [id number] 08:24:00* Test Item Value Reference Range Interpretation Comments GLUBED (test code = GLUBED) 201 mg/dL 74-106 H Performed by certified auxiliary equipment operator at [facility] [id number] 21:07:00* Test Item Value Reference Range Interpretation Comments GLUBED (test code = GLUBED) 185 mg/dL 74-106 H Performed by certified auxiliary equipment operator at [facility] [id number] 20:21:00* Test Item Value Reference Range Interpretation Comments GLUBED (test code = GLUBED) 168 mg/dL 74-106 H Performed by certified auxiliary equipment operator at [facility] [id number] 17:21:00* Test Item Value Reference Range Interpretation Comments GLUBED (test code = GLUBED) 104 mg/dL 74-106 N Performed by certified auxiliary equipment operator at [facility] [id number] 11:54:00* Test Item Value Reference Range Interpretation Comments GLUBED (test code = GLUBED) 207 mg/dL 74-106 H Performed by certified auxiliary equipment operator at [facility] [id number] 10:26:00* Test Item Value Reference Range Interpretation Comments GLUBED (test code = GLUBED) 266 mg/dL 74-106 H Performed by certified auxiliary equipment operator at [facility] BASIC METABOLIC [id number] 08:10:00* Test Item Value Reference Range Interpretation [...] CA) 8.5 mg/dL 8.5-10.1 N BASIC METABOLIC [id number] 08:01:00* Test Item Value Reference Range Interpretation [...] CALCIUM (test code = CA) mg/dL 8.5-10.1 [id number] 20:13:00* Test Item Value Reference Range Interpretation Comments GLUBED (test code = GLUBED) 280 mg/dL 74-106 H Performed by certified auxiliary equipment operator at [facility] URINALYSIS [id number] 18:55:00* Test Item Value Reference Range Interpretation [...] #/LPF FEW BY V.LAB.THSPECIMEN COMMENTS: urineUrine Source? [id number] 16:55:00* Test Item Value Reference Range Interpretation Comments GLUBED (test code = GLUBED) 151 mg/dL 74-106 H Performed by certified auxiliary equipment operator at [facility] [id number] 15:39:00* Test Item Value Reference Range Interpretation Comments GLUBED (test code = GLUBED) 264 mg/dL 74-106 H Performed by certified auxiliary equipment operator at [facility] CBC W/AUTO [id number] 11:09:00* Test Item Value Reference Range Interpretation [...] = MDIFF) NO, ONLY SCAN NEEDED DIFFERENTIAL [id number] 11:09:00* Test Item Value Reference Range Interpretation Comments STAIN ACCEPTABILITY (test code = STN ACCEPTABLE) STAIN ACCEPTABLE HYPOCHROMIA (test code = HYPO) 1+ ANISOCYTOSIS (test code = ANISO) 1+ PLATELET ESTIMATE (test code = PLTEST) SLIGHTLY DECREASED PLATELET MORPHOLOGY (test code = PLTMORPH) NORMAL CBC W/AUTO [id number] 10:19:00* Test Item Value Reference Range Interpretation [...] = MDIFF) NO, ONLY SCAN NEEDED DIFFERENTIAL [id number] 10:19:00* Test Item Value Reference Range Interpretation Comments STAIN ACCEPTABILITY (test code = STN ACCEPTABLE) MORPHOLOGY COMMENT (test code = MOC) PLATELET ESTIMATE (test code = PLTEST) PLATELET MORPHOLOGY (test code = PLTMORPH) CBC W/AUTO [id number] 10:15:00* Test Item Value Reference Range Interpretation [...] = MDIFF) NO, ONLY SCAN NEEDED DIFFERENTIAL [id number] 10:15:00* Test Item Value Reference Range Interpretation Comments STAIN ACCEPTABILITY (test code = STN ACCEPTABLE) CABOT RINGS (test code = CAB) MORPHOLOGY COMMENT (test code = MOC) PLATELET ESTIMATE (test code = PLTEST) PLATELET MORPHOLOGY (test code = PLTMORPH) CBC W/AUTO [id number] 10:15:00* Test Item Value Reference Range Interpretation [...] = MDIFF) NO, ONLY SCAN NEEDED DIFFERENTIAL [id number] 10:15:00* Test Item Value Reference Range Interpretation Comments STAIN ACCEPTABILITY (test code = STN ACCEPTABLE) MORPHOLOGY COMMENT (test code = MOC) PLATELET ESTIMATE (test code = PLTEST) PLATELET MORPHOLOGY (test code = PLTMORPH) CBC W/AUTO [id number] 10:15:00* Test Item Value Reference Range Interpretation [...] = MDIFF) NO, ONLY SCAN NEEDED DIFFERENTIAL [id number] 10:15:00* Test Item Value Reference Range Interpretation Comments STAIN ACCEPTABILITY (test code = STN ACCEPTABLE) CABOT RINGS (test code = CAB) MORPHOLOGY COMMENT (test code = MOC) PLATELET ESTIMATE (test code = PLTEST) PLATELET MORPHOLOGY (test code = PLTMORPH) CBC W/AUTO [id number] 10:00:00* Test Item Value Reference Range Interpretation [...] # (test code = BA#) K/mm3 0.0-0.2 [id number] 08:44:00* Test Item Value Reference Range Interpretation Comments GLUBED (test code = GLUBED) 305 mg/dL 74-106 H Performed by certified auxiliary equipment operator at [facility] BASIC METABOLIC [id number] 08:31:00* Test Item Value Reference Range Interpretation [...] code = CA) 8.0 mg/dL 8.5-10.1 L [id number] 20:37:00* Test Item Value Reference Range Interpretation Comments GLUBED (test code = GLUBED) 200 mg/dL 74-106 H Performed by certified auxiliary equipment operator at [facility] - XR CHEST 1 [id number] 18:15:00 FAX: Benjamin Francis MD [phone] [place]: St: ADM Name: KALYANI CATES [facility] : [birth year] Age/S: 64/F [address] [facility] Unit #: [id number] Loc: V.3012 [place] [address] Phys: Benjamin Masters MD Acct: [id number] Dis Date: Status: ADM IN PHONE #: [phone] Exam Date: 09/03/2019 1615 FAX #: [phone] Reason: CHF EXAMS: CPT CODE: [id number] XR CHEST 1 V 44142 EXAM: Chest x-ray, one view; INFORMATION: CHF, hypoglycemia; IMPRESSION: 1. Mild cardiomegaly; otherwise, no evidence of active cardiopulmonary disease. 2. No significant change compared with a study from August 28, 2019. Location code: [facility] at 1815 Reported and signed by: Jc Bravo M.D. CC: Benjamin Masters Technologist: WENDIE COMER, RT(R); Jacquie Alcantara RT(R) Trnscrd Date/Time/By: 09/03/2019 (1814) : By: Dannielle Orig Print D/T: S: 09/03/2019 (8357) PAGE 1 Signed Report [id number] 17:28:00* Test Item Value Reference Range Interpretation Comments GLUBED (test code = GLUBED) 103 mg/dL 74-106 N Performed by certified auxiliary equipment operator at [facility] [id number] 12:43:00* Test Item Value Reference Range Interpretation Comments GLUBED (test code = GLUBED) 201 mg/dL 74-106 H Performed by certified auxiliary equipment operator at [facility] B-TYPE NATRIURETIC [id number] 12:25:00* Test Item Value Reference Range Interpretation Comments B-TYPE NATRIURETIC PEPTIDE (test code = BNP) 20.62 pgram/mL 0-100 N SPECIMEN COMMENTS: add to AM labsBASIC METABOLIC [id number] 09:49:00* Test Item Value Reference Range Interpretation [...] code = CA) 8.3 mg/dL 8.5-10.1 L [id number] 08:23:00* Test Item Value Reference Range Interpretation Comments GLUBED (test code = GLUBED) 242 mg/dL 74-106 H Performed by certified auxiliary equipment operator at [facility] [id number] 20:51:00* Test Item Value Reference Range Interpretation Comments GLUBED (test code = GLUBED) 155 mg/dL 74-106 H Performed by certified auxiliary equipment operator at [facility] [id number] 16:25:00* Test Item Value Reference Range Interpretation Comments GLUBED (test code = GLUBED) 245 mg/dL 74-106 H Performed by certified auxiliary equipment operator at [facility] [id number] 14:55:00* Test Item Value Reference Range Interpretation Comments MAGNESIUM (test code = MAG) 1.8 mg/dL 1.8-2.4 N COMPREHENSIVE METABOLIC [id number] 13:39:00* Test Item Value Reference Range Interpretation [...] due to change in reagent. COMPREHENSIVE METABOLIC [id number] 13:31:00* Test Item Value Reference Range Interpretation [...] code = ALKP) IUnit/L 45-117 CBC W/AUTO [id number] 12:41:00* Test Item Value Reference Range Interpretation [...] NRBC#) 0.00 K/mm3 0.0-0.1 N CBC W/AUTO [id number] 12:32:00* Test Item Value Reference Range Interpretation [...] # (test code = BA#) K/mm3 0.0-0.2 [id number] 11:40:00* Test Item Value Reference Range Interpretation Comments GLUBED (test code = GLUBED) 252 mg/dL 74-106 H Performed by certified auxiliary equipment operator at [facility] [id number] 08:02:00* Test Item Value Reference Range Interpretation Comments GLUBED (test code = GLUBED) 252 mg/dL 74-106 H Performed by certified auxiliary equipment operator at [facility] [id number] 20:04:00* Test Item Value Reference Range Interpretation Comments GLUBED (test code = GLUBED) 183 mg/dL 74-106 H Performed by certified auxiliary equipment operator at [facility] [id number] 18:42:00* Test Item Value Reference Range Interpretation Comments GLUBED (test code = GLUBED) 218 mg/dL 74-106 H Performed by certified auxiliary equipment operator at [facility] [id number] 12:24:00* Test Item Value Reference Range Interpretation Comments GLUBED (test code = GLUBED) 281 mg/dL 74-106 H Performed by certified auxiliary equipment operator at [facility] [id number] 08:29:00* Test Item Value Reference Range Interpretation Comments GLUBED (test code = GLUBED) 293 mg/dL 74-106 H Performed by certified auxiliary equipment operator at [facility] [id number] 20:21:00* Test Item Value Reference Range Interpretation Comments GLUBED (test code = GLUBED) 236 mg/dL 74-106 H Performed by certified auxiliary equipment operator at [facility] [id number] 17:17:00* Test Item Value Reference Range Interpretation Comments GLUBED (test code = GLUBED) 311 mg/dL 74-106 H Performed by certified auxiliary equipment operator at [facility] [id number] 12:22:00* Test Item Value Reference Range Interpretation Comments GLUBED (test code = GLUBED) 230 mg/dL 74-106 H Performed by certified auxiliary equipment operator at [facility] [id number] 08:34:00* Test Item Value Reference Range Interpretation Comments GLUBED (test code = GLUBED) 301 mg/dL 74-106 H Performed by certified auxiliary equipment operator at [facility] BASIC METABOLIC [id number] 06:15:00* Test Item Value Reference Range Interpretation [...] CA) 8.6 mg/dL 8.5-10.1 N BASIC METABOLIC [id number] 06:12:00* Test Item Value Reference Range Interpretation [...] code = CA) 8.6 mg/dL 8.5-10.1 N [id number] 20:44:00* Test Item Value Reference Range Interpretation Comments GLUBED (test code = GLUBED) 304 mg/dL 74-106 H Performed by certified auxiliary equipment operator at [facility] [id number] 17:42:00* Test Item Value Reference Range Interpretation Comments MAGNESIUM (test code = MAG) 1.8 mg/dL 1.8-2.4 N [id number] 17:25:00* Test Item Value Reference Range Interpretation Comments GLUBED (test code = GLUBED) 196 mg/dL 74-106 H Performed by certified auxiliary equipment operator at [facility] [id number] 12:10:00* Test Item Value Reference Range Interpretation Comments GLUBED (test code = GLUBED) 223 mg/dL 74-106 H Performed by certified auxiliary equipment operator at [facility] BASIC METABOLIC [id number] 07:59:00* Test Item Value Reference Range Interpretation [...] code = CA) 8.6 mg/dL 8.5-10.1 N [id number] 07:59:00* Test Item Value Reference Range Interpretation Comments MAGNESIUM (test code = MAG) 1.8 mg/dL 1.8-2.4 N [id number] 07:54:00* Test Item Value Reference Range Interpretation Comments GLUBED (test code = GLUBED) 232 mg/dL 74-106 H Performed by certified auxiliary equipment operator at [facility] BASIC METABOLIC [id number] 07:35:00* Test Item Value Reference Range Interpretation [...] CALCIUM (test code = CA) mg/dL 8.5-10.1 [id number] 07:35:00* Test Item Value Reference Range Interpretation Comments MAGNESIUM (test code = MAG) mg/dL 1.8-2.4 [id number] 20:33:00* Test Item Value Reference Range Interpretation Comments GLUBED (test code = GLUBED) 161 mg/dL 74-106 H Performed by certified auxiliary equipment operator at [facility] [id number] 16:15:00* Test Item Value Reference Range Interpretation Comments GLUBED (test code = GLUBED) 137 mg/dL 74-106 H Performed by certified auxiliary equipment operator at [facility] [id number] 15:50:00 RUN DATE: 08/29/19 [place] [facility] PAGE 1 RUN TIME: 1550 Specimen Inqui ry RUN USER: INTERFACE PATIENT: KALYANI TALAVERA ACCT #: [id number] LOC: [facility] U #: [id number] AGE/SX: 64/F ROOM: [facility] RE08/29/19REG DR: Benjamin Masters MD : 57 BED: A DIS: STATUS: ADM IN TLOC: SPEC #: [id number] RECD: 08/28/19 STATUS: SHREYA REQ #: [id number] MARILEE: 08/27/19 DR: Emil Martinez MD ENTERED: 08/28/19 SP TYPE: STOMACH OTHR DR: Faizan Barron i, MD, Kuldip Kumar MD Ojeas, Harry Silvio MDORDERED: GROSS COPIES TO: Emil Martinez MD [address] [place] [address] Faizan Jennings MD [address], [address] [place] [address] Harry Gutierrez MD [address] [place] [address] Kb Bradford MD [address] [address] PROCEDURES: GROSS (08/29/19- 1458) TISSUES: ANTRAL BIOPSY - H-PYLORI CLINICAL HISTORY COLLECTION DATE: 08/27/19 DYSPHAGIA FINAL DIAGNOSIS Antrum, biop sy: REACTIVE GASTROPATHY NO INTESTINAL METAPLASIA SEEN NEGA TIVE FOR HELICOBACTER PYLORI BY GIEMSA STAIN NEGATIVE FOR MALIGNANCY CONTINUED ON NEXT PAGE RUN DATE : 08/29/19 [facility] PAGE 2 RUN TIME: 1550 Specimen Inquiry RUN USER: INTERFACE SPEC #: [id number] PATIENT: KALYANI TALAVERA #V [id number] (Continued) FINAL DIAGNOSIS (Continue d) DMW/corby Simpson [address], [address] MACROSCOPIC The specimen is re ceived in formalin, labeled with the patient's name, and identified as "antrum bx", and consists of two gutierrez biopsies measuring 0.25 cm each. RADHA SS PERFORMED AT [facility] PATHOLOGY BONDERITE OPERATOR S [address] [place] [address] [phone] MICROS COPIC All of the stains, including any controls performed, stain casandra loyd. MICROSCOPIC PERFORMED AT [facility] PATHOLOGY [address] [place] [address] ([phone] PERFORMING SITE Diagnosis performed at: [facility] [address] [place] [address] Signed SIGNATURE ON FILE Petty Lowe MD 08/29/19 1550 END OF REPORT [id number] 11:43:00* Test Item Value Reference Range Interpretation Comments GLUBED (test code = GLUBED) 318 mg/dL 74-106 H Performed by certified auxiliary equipment operator at [facility] BASIC METABOLIC [id number] 09:27:00* Test Item Value Reference Range Interpretation [...] CA) 8.5 mg/dL 8.5-10.1 N BASIC METABOLIC [id number] 09:17:00* Test Item Value Reference Range Interpretation [...] CALCIUM (test code = CA) mg/dL 8.5-10.1 [id number] 08:08:00* Test Item Value Reference Range Interpretation Comments GLUBED (test code = GLUBED) 291 mg/dL 74-106 H Performed by certified auxiliary equipment operator at [facility] [id number] 20:52:00* Test Item Value Reference Range Interpretation Comments GLUBED (test code = GLUBED) 267 mg/dL 74-106 H Performed by certified auxiliary equipment operator at [facility] [id number] 19:40:00* Test Item Value Reference Range Interpretation Comments TROPONIN-I (test code = TROPI) <0.015 ng/mL 0-0.045 N SPECIMEN COMMENTS: [id number] 19:27:00* Test Item Value Reference Range Interpretation Comments MAGNESIUM (test code = MAG) 1.6 mg/dL 1.8-2.4 L - XR ANKLE 3 + V [id number] 16:26:00 FAX: Benjamin Francis MD [phone] [place]: B St: ADM Name: KALYANI CATES [facility] : [birth year] Age/S: 64/F [address] [facility] Unit #: [id number] Loc: .[address] [place] [address] Phys: Benjamin Masters MD Acct: [id number] Dis Date: Status: ADM IN PHONE #: [phone] Exam Date: 08/28/2019 1600 FAX #: [phone] Reason: Left ankle injury EXAMS: CPT CODE: [id number] XR ANKLE 3 + V LT 09197 REASON FOR EXAM: Left ankle injury EXAM ORDER DATE: 08/28/2019 12:00 AM Ordering: Benjamin Masters MD Attending:Benjamin Masters MD Location:[facility] PROCEDURE: - XR ANKLE 3 + V LT FINDIN GS: 3 views of the left ankle were obtained. The osseous structures are un remarkable in size and shape. The joint spaces are maintained. No evidence of fracture. The syndesmosis is intact. IMPRESSION: Mild soft tissue swelling in the lateral malleolus. at 5318 Reported and signed by: Pelon Moreno M.D. CC: Benjamin Masters Technologist: Jacquie Alcantara RT(R) Trnscrd Date/Time/By: 08/28/2019 (3743) : By: LeanneVTL Orig P rint D/T: S: 08/28/2019 (2141) PAGE 1 Signed Report [id number] 16:25:00* Test Item Value Reference Range Interpretation Comments GLUBED (test code = GLUBED) 241 mg/dL 74-106 H Performed by certified auxiliary equipment operator at [facility] - XR CHEST 1 [id number] 16:25:00 FAX: Benjamin Francis MD [phone] [place]: B St: ADM Name: KALYANI CATES [facility] : [birth year] Age/S: 64/F [address] [facility] Unit #: [id number] Loc: V.3012 [place] [address] Phys: Benjamin Masters MD Acct: [id number] Dis Date: Status: ADM IN PHONE #: [phone] Exam Date: 08/28/2019 1600 FAX #: [phone] Reason: CHF EXAMS: CPT CODE: [id number] XR CHEST 1 V 38259 REASON FOR EXAM: CHF EXAM ORDER DATE: 08/28/2019 12:00 AM Ordering: Benjamin Masters MD Attending:Benjamin Masters MD Location:[facility] PRO CEDURE: - XR CHEST 1 V COMPARISON: 08/27/2019 FINDING S: Portable AP frontal view of the chest obtained at 3:59 PM shows clear lungs without evidence of consolidation. There is no evidence of effusion. The heart size is minimally enlarged. Pulmonary vasculatures are minimally congested. IMPRESSION: Interval improvement in the congestive heart failure. at 5590 Reported and signed by: Pelon Moreno M.D. CC: Benjamin Masters Technologi st: Jacquie Alcantara RT(R) Trnscrd Date/Time/By: 08/28/2019 (5283) : By: LeanneVTL Orig Print D/T: S: 08/28/2019 (3149) PAGE 1 Signed Report [id number] 11:24:00* Test Item Value Reference Range Interpretation Comments GLUBED (test code = GLUBED) 289 mg/dL 74-106 H Performed by certified auxiliary equipment operator at [facility] [id number] 07:51:00* Test Item Value Reference Range Interpretation Comments GLUBED (test code = GLUBED) 345 mg/dL 74-106 H Performed by certified auxiliary equipment operator at [facility] BASIC METABOLIC [id number] 06:05:00* Test Item Value Reference Range Interpretation [...] CA) 8.4 mg/dL 8.5-10.1 L CBC W/AUTO [id number] 06:00:00* Test Item Value Reference Range Interpretation [...] = MDIFF) NO, ONLY SCAN NEEDED DIFFERENTIAL [id number] 06:00:00* Test Item Value Reference Range Interpretation Comments STAIN ACCEPTABILITY (test code = STN ACCEPTABLE) STAIN ACCEPTABLE ANISOCYTOSIS (test code = ANISO) 2+ MICROCYTOSIS (test code = MICR) 2+ PLATELET ESTIMATE (test code = PLTEST) ADEQUATE PLATELET MORPHOLOGY (test code = PLTMORPH) NORMAL BASIC METABOLIC [id number] 05:57:00* Test Item Value Reference Range Interpretation [...] code = CA) mg/dL 8.5-10.1 CBC W/AUTO [id number] 05:35:00* Test Item Value Reference Range Interpretation [...] = MDIFF) NO, ONLY SCAN NEEDED DIFFERENTIAL [id number] 05:35:00* Test Item Value Reference Range Interpretation Comments STAIN ACCEPTABILITY (test code = STN ACCEPTABLE) CABOT RINGS (test code = CAB) MORPHOLOGY COMMENT (test code = MOC) PLATELET ESTIMATE (test code = PLTEST) PLATELET MORPHOLOGY (test code = PLTMORPH) CBC W/AUTO [id number] 05:35:00* Test Item Value Reference Range Interpretation [...] = MDIFF) NO, ONLY SCAN NEEDED DIFFERENTIAL [id number] 05:35:00* Test Item Value Reference Range Interpretation Comments STAIN ACCEPTABILITY (test code = STN ACCEPTABLE) MORPHOLOGY COMMENT (test code = MOC) PLATELET ESTIMATE (test code = PLTEST) PLATELET MORPHOLOGY (test code = PLTMORPH) CBC W/AUTO [id number] 05:35:00* Test Item Value Reference Range Interpretation [...] = MDIFF) NO, ONLY SCAN NEEDED DIFFERENTIAL [id number] 05:35:00* Test Item Value Reference Range Interpretation Comments STAIN ACCEPTABILITY (test code = STN ACCEPTABLE) MORPHOLOGY COMMENT (test code = MOC) PLATELET ESTIMATE (test code = PLTEST) PLATELET MORPHOLOGY (test code = PLTMORPH) CBC W/AUTO [id number] 05:35:00* Test Item Value Reference Range Interpretation [...] = MDIFF) NO, ONLY SCAN NEEDED DIFFERENTIAL [id number] 05:35:00* Test Item Value Reference Range Interpretation Comments STAIN ACCEPTABILITY (test code = STN ACCEPTABLE) CABOT RINGS (test code = CAB) MORPHOLOGY COMMENT (test code = MOC) PLATELET ESTIMATE (test code = PLTEST) PLATELET MORPHOLOGY (test code = PLTMORPH) [id number] 20:01:00* Test Item Value Reference Range Interpretation Comments GLUBED (test code = GLUBED) 220 mg/dL 74-106 H Performed by certified auxiliary equipment operator at [facility] [id number] 19:18:00* Test Item Value Reference Range Interpretation Comments GLYCOSYLATED HEMOGLOBIN (HA1C) (test code = GLYHGB) 9.6 % HbA1 SUGGESTED DIAGNOSIS: HbA1C (%) Diabetic >6.4Prediabetes 5.7 - 6.4Normal <5.7 ESTIMATED AVERAGE GLUCOSE (test code = EAG) 229 MG/DL - XR CHEST 1 [id number] 18:54:00 FAX: Loan Cortez NP [phone] [place]: St: [facility] FAX: Benjamin Francis MD [phone] Name: KALYANI TALAVERA [facility] : 1955 Age/S: 64/F [address] Unit #: [id number] Loc: V.[address] [place] [address] Phys: Loan Cortez NP Acct: [id number] Dis Date: Status: ADM IN PHONE #: [phone] Exam Date: 08/27/2019 1845 FAX #: [phone] Reason: shortness of breath EXAMS: CPT CODE: [id number] XR CHEST 1 V 56824 REASON FOR EXAM: shortness of breath EXAM [...] Leyva(Megan) Trnscrd Date/Time/By: 08/27/2019 (1853) : By: KendyL Orig Print D/T: S: 08/27/2019 (1856) PAGE 1 Signed Report [id number] 18:35:00* Test Item Value Reference Range Interpretation Comments GLUBED (test code = GLUBED) 201 mg/dL 74-106 H Performed by certified auxiliary equipment operator at [facility] T4 [id number] 18:03:00* Test Item Value Reference Range Interpretation Comments T4 FREE (test code = T4F) 1.10 ng/dL 0.76-1.46 N THYROID STIMULATING [id number] 18:03:00* Test Item Value Reference Range Interpretation Comments THYROID STIMULATING HORMONE (test code = TSH) 1.260 uIU/mL 0.36-3.7 4 N TSH REFERENCE RANGES: EUTHYROID: 0.35 - 4.3 mIU/mL HYPO : > 5.5 mIU/mL HYPER : < 0.35 mIU/mL [id number] 16:50:00* Test Item Value Reference Range Interpretation Comments GLUBED (test code = GLUBED) 217 mg/dL 74-106 H Performed by certified auxiliary equipment operator at [facility] [id number] 12:15:00* Test Item Value Reference Range Interpretation Comments GLUBED (test code = GLUBED) 272 mg/dL 74-106 H Performed by certified auxiliary equipment operator at [facility] [id number] 08:14:00* Test Item Value Reference Range Interpretation Comments GLUBED (test code = GLUBED) 322 mg/dL 74-106 H Performed by certified auxiliary equipment operator at [facility] [id number] 04:01:00* Test Item Value Reference Range Interpretation Comments GLUBED (test code = GLUBED) 329 mg/dL 74-106 H Performed by certified auxiliary equipment operator at [facility] CBC W/AUTO [id number] 23:42:00* Test Item Value Reference Range Interpretation [...] = MDIFF) NO, ONLY SCAN NEEDED DIFFERENTIAL [id number] 23:42:00* Test Item Value Reference Range Interpretation Comments STAIN ACCEPTABILITY (test code = STN ACCEPTABLE) STAIN ACCEPTABLE ANISOCYTOSIS (test code = ANISO) 2+ MICROCYTOSIS (test code = MICR) 2+ PLATELET ESTIMATE (test code = PLTEST) ADEQUATE PLATELET MORPHOLOGY (test code = PLTMORPH) NORMAL COMPREHENSIVE METABOLIC [id number] 23:14:00* Test Item Value Reference Range Interpretation [...] 628 mg/dL 74-106 Re sults called to [id number] by [email or web address] 08/26/19 2313Critical results verified and read back [...] range due to change in reagent. URINALYSIS [id number] 23:08:00* Test Item Value Reference Range Interpretation [...] #/HPF NONE Urine Source? Clean CatchCOMPREHENSIVE METABOLIC [id number] 23:02:00* Test Item Value Reference Range Interpretation [...] code = ALKP) IUnit/L 45-117 CBC W/AUTO [id number] 22:58:00* Test Item Value Reference Range Interpretation [...] = MDIFF) NO, ONLY SCAN NEEDED DIFFERENTIAL [id number] 22:58:00* Test Item Value Reference Range Interpretation Comments STAIN ACCEPTABILITY (test code = STN ACCEPTABLE) CABOT RINGS (test code = CAB) MORPHOLOGY COMMENT (test code = MOC) PLATELET ESTIMATE (test code = PLTEST) PLATELET MORPHOLOGY (test code = PLTMORPH) CBC W/AUTO [id number] 22:58:00* Test Item Value Reference Range Interpretation [...] = MDIFF) NO, ONLY SCAN NEEDED DIFFERENTIAL [id number] 22:58:00* Test Item Value Reference Range Interpretation Comments STAIN ACCEPTABILITY (test code = STN ACCEPTABLE) CABOT RINGS (test code = CAB) MORPHOLOGY COMMENT (test code = MOC) PLATELET ESTIMATE (test code = PLTEST) PLATELET MORPHOLOGY (test code = PLTMORPH) CBC W/AUTO [id number] 22:58:00* Test Item Value Reference Range Interpretation [...] = MDIFF) NO, ONLY SCAN NEEDED DIFFERENTIAL [id number] 22:58:00* Test Item Value Reference Range Interpretation Comments STAIN ACCEPTABILITY (test code = STN ACCEPTABLE) MORPHOLOGY COMMENT (test code = MOC) PLATELET ESTIMATE (test code = PLTEST) PLATELET MORPHOLOGY (test code = PLTMORPH) CBC W/AUTO [id number] 22:58:00* Test Item Value Reference Range Interpretation [...] = MDIFF) NO, ONLY SCAN NEEDED DIFFERENTIAL [id number] 22:58:00* Test Item Value Reference Range Interpretation Comments STAIN ACCEPTABILITY (test code = STN ACCEPTABLE) CABOT RINGS (test code = CAB) MORPHOLOGY COMMENT (test code = MOC) PLATELET ESTIMATE (test code = PLTEST) PLATELET MORPHOLOGY (test code = PLTMORPH) VENOUS BLOOD [id number] 22:36:00* Test Item Value Reference Range Interpretation [...] [place] 22:17 - 08/26/2019; by Marcie TONY [employer] METHEMOGLOBIN (test code = METHGB) 0.1 % 0.0-1.50 N BASIC METABOLIC [id number] 14:12:00* Test Item Value Reference Range Interpretation [...] CA) 8.7 mg/dL 8.5-10.1 N BASIC METABOLIC [id number] 14:06:00* Test Item Value Reference Range Interpretation [...] CA) 8.7 mg/dL 8.5-10.1 N CBC W/AUTO [id number] 13:33:00* Test Item Value Reference Range Interpretation [...] K/mm3 0.0-0.1 N - CT C-SPINE W/O [id number] 08:02:00 Name: KALYANI TALAVERA [facility] : 1955 Age/S: 64 / F [address] Unit #: [id number] Loc: [place] [address] Phys: Thelma Loyd Acct: [id number] Dis Date: Status: REG ER PHONE #: [phone] Exam Date: 08/06/2019 0754 FAX #: [phone] Reason: Neck Pain EXAMS: CPT CODE: [id number] CT C-SPINE W/O CONTRAST 79373 HISTORY: Neck Pain, status post fall TECHNIQUE: [...] Koenig RT(R),(MR),(CT) CTDI: DLP: Trnscb Date/Time: 08/06/2019 (801) [email or web address] Orig Print D/T: S: 08/06/2019 (0805) PAGE 1 Signed Report BASIC METABOLIC [id number] 07:06:00* Test Item Value Reference Range Interpretation [...] CA) 9.1 mg/dL 8.5-10.1 N BASIC METABOLIC [id number] 07:02:00* Test Item Value Reference Range Interpretation [...] code = CA) mg/dL 8.5-10.1 CBC W/O [id number] 06:41:00* Test Item Value Reference Range Interpretation [...] fL 6.7-11.0 N - CT C-SPINE W/O [id number] 06:25:00 Name: KALYANI TALAVERA [facility] : 1955 Age/S: 64 / F [address] [facility] Unit #: [id number] Loc: [place] [address] Phys: Thelma Loyd DO Acct: [id number] Dis Date: Status: REG ER PHONE #: [phone] Exam Date: 08/06/2019 0605 FAX #: [phone] Reason: Neck Pain EXAMS: CPT CODE: [id number] CT C-SPINE W/O CONTRAST 23916 EXAM: - CT C-SPINE W/O CONTRAST HISTORY: [...] and signed by: Wendie Adan M.D. CC: Tehlma Loyd DO; Benjamin Masters Technologist:RT EDUARDO CTDI: DLP: Trnscb Date/Time: 08/06/2019 (06 25) [email or web address] Orig Print D/T: S: 08/06/2019 (0629) P AGE 2 Signed Report - CT MAXIFAC W/O [id number] 06:21:00 Name: KALYANI TALAVERA [facility] : 1955 Age/S: 64 / F [address] [facility] Unit #: [id number] Loc: [place] [address] Phys: Thelma Loyd DO Acct: [id number] Dis Date: Status: REG ER PHONE #: [phone] Exam Date: 08/06/2019 06 FAX #: [phone] Reason: TRAUMA EXAMS: CPT CODE: [id number] CT MAXIFAC W/O CNT 46183 EXAM: - CT MAXIFAC W/O CNT HISTORY: [...] EDUARDO CTDI: DLP: Trnscb Date/Time: 08/06/2019 (620) t.SDR.[email or web address] Orig Print D/T: S: 08/06/2019 (9292) PAGE 1 Signed Report - CT HEAD/BRAIN W/O [id number] 06:20:00 Name: KALYANI TALAVERA [facility] : 1955 Age/S: 64 / F [address] Unit #: [id number] Loc: [place] [address] Phys: Thelma Loyd DO Acct: [id number] Dis Date: Status: REG ER PHONE #: [phone] Exam Date: 08/06/2019 0559 FAX #: [phone] Reason: HEADACHE EXAMS: CPT CODE: [id number] CT HEAD/BRAIN W/O CONT 72495 EXAM: - CT HEAD/BRAIN W/O CONT Location [...] 1 Signed Report (CONTINUED) Name: KALYANI MOSES [facility] : 1955 Age/S: 64 / F [address] [facility] Unit #: [id number] L oc: [place] [address] Phys: Thelma Loyd Acct: [id number] Dis Date: Status: REG ER PHONE #: [phone] Exam Date: 08/06/2019 0559 FAX #: [phone] Malinda son: HEADACHE EXAMS: CPT CODE: [id number] CT HEAD/BRAIN W/O CONT 92745 <Continued> CC: Thelma Loyd DO; Benjamin Masters Technologist:JORDEN MERCADO, RT CTDI: DLP: Trnscb Date/Time: 08/06/2019 (619) [email or web address] Orig Print D/T: S: 08/06/2019 (0623) PAGE 2 Signed Report BASIC METABOLIC [id number] 07:49:00* Test Item Value Reference Range Interpretation [...] code = CA) 8.7 mg/dL 8.5-10.1 N [id number] 06:05:00* Test Item Value Reference Range Interpretation Comments GLUBED (test code = GLUBED) 181 mg/dL 74-106 H Performed by certified auxiliary equipment operator at [facility] [id number] 20:37:00* Test Item Value Reference Range Interpretation Comments GLUBED (test code = GLUBED) 285 mg/dL 74-106 H Performed by certified auxiliary equipment operator at [facility] [id number] 17:15:00* Test Item Value Reference Range Interpretation Comments GLUBED (test code = GLUBED) 84 mg/dL 74-106 N Performed by certified auxiliary equipment operator at [facility] [id number] 17:15:00* Test Item Value Reference Range Interpretation Comments GLUBED (test code = GLUBED) 166 mg/dL 74-106 H Performed by certified auxiliary equipment operator at [facility] BASIC METABOLIC [id number] 07:13:00* Test Item Value Reference Range Interpretation [...] CA) 8.7 mg/dL 8.5-10.1 N BASIC METABOLIC [id number] 07:09:00* Test Item Value Reference Range Interpretation [...] code = CA) mg/dL 8.5-10.1 CBC W/AUTO [id number] 06:42:00* Test Item Value Reference Range Interpretation [...] DIFF REQUIRED (test code = MDIFF) NO [id number] 06:33:00* Test Item Value Reference Range Interpretation Comments GLUBED (test code = GLUBED) 180 mg/dL 74-106 H Performed by certified auxiliary equipment operator at [facility] [id number] 20:48:00* Test Item Value Reference Range Interpretation Comments GLUBED (test code = GLUBED) 403 mg/dL 74-106 H Performed by certified auxiliary equipment operator at [facility] [id number] 18:00:00* Test Item Value Reference Range Interpretation Comments GLUBED (test code = GLUBED) 326 mg/dL 74-106 H Performed by certified auxiliary equipment operator at [facility] [id number] 14:21:00* Test Item Value Reference Range Interpretation Comments GLYCOSYLATED HEMOGLOBIN (HA1C) (test code = GLYHGB) 8.9 % HbA1 SUGGESTED DIAGNOSIS: HbA1C (%) Diabetic >6.4Prediabetes 5.7 - 6.4Normal <5.7 ESTIMATED AVERAGE GLUCOSE (test code = EAG) 209 MG/DL [id number] 13:22:00* Test Item Value Reference Range Interpretation Comments GLUBED (test code = GLUBED) 222 mg/dL 74-106 H Performed by certified auxiliary equipment operator at [facility] CBC W/AUTO [id number] 10:20:00* Test Item Value Reference Range Interpretation [...] = MDIFF) NO, ONLY SCAN NEEDED DIFFERENTIAL [id number] 10:20:00* Test Item Value Reference Range Interpretation Comments STAIN ACCEPTABILITY (test code = STN ACCEPTABLE) STAIN ACCEPTABLE MORPHOLOGY COMMENT (test code = MOC) NORMAL PLATELET ESTIMATE (test code = PLTEST) ADEQUATE PLATELET MORPHOLOGY (test code = PLTMORPH) NORMAL COMPREHENSIVE METABOLIC [id number] 10:05:00* Test Item Value Reference Range Interpretation [...] due to change in reagent. B-TYPE NATRIURETIC [id number] 09:56:00* Test Item Value Reference Range Interpretation Comments B-TYPE NATRIURETIC PEPTIDE (test code = BNP) 62.56 pgram/mL 0-100 N COMPREHENSIVE METABOLIC [id number] 09:55:00* Test Item Value Reference Range Interpretation [...] code = ALKP) IUnit/L 45-117 CBC W/AUTO [id number] 09:21:00* Test Item Value Reference Range Interpretation [...] = MDIFF) NO, ONLY SCAN NEEDED DIFFERENTIAL [id number] 09:21:00* Test Item Value Reference Range Interpretation Comments STAIN ACCEPTABILITY (test code = STN ACCEPTABLE) CABOT RINGS (test code = CAB) MORPHOLOGY COMMENT (test code = MOC) PLATELET ESTIMATE (test code = PLTEST) PLATELET MORPHOLOGY (test code = PLTMORPH) CBC W/AUTO [id number] 09:21:00* Test Item Value Reference Range Interpretation [...] = MDIFF) NO, ONLY SCAN NEEDED DIFFERENTIAL [id number] 09:21:00* Test Item Value Reference Range Interpretation Comments STAIN ACCEPTABILITY (test code = STN ACCEPTABLE) MORPHOLOGY COMMENT (test code = MOC) PLATELET ESTIMATE (test code = PLTEST) PLATELET MORPHOLOGY (test code = PLTMORPH) CBC W/AUTO [id number] 09:20:00* Test Item Value Reference Range Interpretation [...] = MDIFF) NO, ONLY SCAN NEEDED DIFFERENTIAL [id number] 09:20:00* Test Item Value Reference Range Interpretation Comments STAIN ACCEPTABILITY (test code = STN ACCEPTABLE) CABOT RINGS (test code = CAB) MORPHOLOGY COMMENT (test code = MOC) PLATELET ESTIMATE (test code = PLTEST) PLATELET MORPHOLOGY (test code = PLTMORPH) CBC W/AUTO [id number] 09:20:00* Test Item Value Reference Range Interpretation [...] = MDIFF) NO, ONLY SCAN NEEDED DIFFERENTIAL [id number] 09:20:00* Test Item Value Reference Range Interpretation Comments STAIN ACCEPTABILITY (test code = STN ACCEPTABLE) CABOT RINGS (test code = CAB) MORPHOLOGY COMMENT (test code = MOC) PLATELET ESTIMATE (test code = PLTEST) PLATELET MORPHOLOGY (test code = PLTMORPH) [id number] 06:25:00* Test Item Value Reference Range Interpretation Comments GLUBED (test code = GLUBED) 208 mg/dL 74-106 H Performed by certified auxiliary equipment operator at [facility] [id number] 20:49:00* Test Item Value Reference Range Interpretation Comments GLUBED (test code = GLUBED) 383 mg/dL 74-106 H Performed by certified auxiliary equipment operator at [facility] [id number] 20:49:00* Test Item Value Reference Range Interpretation Comments GLUBED (test code = GLUBED) 421 mg/dL 74-106 H Performed by certified auxiliary equipment operator at [facility] - XR CHEST 1 [id number] 16:23:00 FAX: Jolie Moscoso MD [phone] [place]: B St: [facility] FAX: Benjamin Francis MD [phone] Name: KALYANI TALAVERA [facility] : 1955 Age/S: 64/F [address] Unit #: [id number] Loc: V.[address] [place] [address] Phys: Jolie Murray MD Acct: [id number] Dis Date: Status: ADM IN PHONE #: [phone] Exam Date: 06/29/2019 1600 FAX #: [phone] Reason: CHF EXAMS: CPT CODE: [id number] XR CHEST 1 V 91756 HISTORY: CHF. COMPARISON: June 28, 2019. Single view chest: Location: TH. Suboptimal inspiration. Crowding of bronchovascular markings. Dependent changes. No acute infiltrates, effusion or congestion. Cardiomegaly. IMPRESSION: No acute infiltrates, effusion or congestion. M arkedly suboptimal inspiration. Dependent changes. Electron ically Signed by Gregory Chowdhury on 06/29/2019 at 1623 Reported and signed by: Solomon Chowdhury M.D. CC: Farhad Murray MD; Benjamin Masters Technologist: Kizzy CLEMENTS(R) Trnscrd Date/Time/By: 06/29/2019 (1623) : By: [email or web address] Orig Print D/T: S: 06/30/2019 (1227) PAGE 1 Signed Report GLUBED 2019-06-29 12:29:00* Test Item Value Reference Range Interpretation Comments GLUBED (test code = GLUBED) 310 mg/dL 74-106 H Performed by certified auxiliary equipment operator at [facility] [id number] 06:19:00* Test Item Value Reference Range Interpretation Comments GLUBED (test code = GLUBED) 339 mg/dL 74-106 H Performed by certified auxiliary equipment operator at [facility] [id number] 00:36:00* Test Item Value Reference Range Interpretation Comments GLUBED (test code = GLUBED) 454 mg/dL 74-106 H Performed by certified auxiliary equipment operator at [facility] [id number] 20:49:00* Test Item Value Reference Range Interpretation Comments GLUBED (test code = GLUBED) 480 mg/dL 74-106 H Performed by certified auxiliary equipment operator at [facility] [id number] 18:21:00* Test Item Value Reference Range Interpretation Comments GLUBED (test code = GLUBED) 388 mg/dL 74-106 H Performed by certified auxiliary equipment operator at [facility] URINALYSIS [id number] 11:46:00* Test Item Value Reference Range Interpretation [...] #/LPF FEW Urine Source? Clean CatchB-TYPE NATRIURETIC [id number] 10:41:00* Test Item Value Reference Range Interpretation [...] taking into account the patients history. PROTHROMBIN [id number] 09:36:00* Test Item Value Reference Range Interpretation [...] (2.5-3.5) IS PATIENT ON ANTICOAGULANTS? NTHROMBOPLASTIN TIME [id number] 09:36:00* Test Item Value Reference Range Interpretation Comments THROMBOPLASTIN TIME PARTIAL (test code = PTT) 33.1 seconds 25.0-36. 5 N IS PATIENT ON ANTICOAGULANTS? [id number] 09:36:00* Test Item Value Reference Range Interpretation [...] cirrhosis - IS PATIENT ON ANTICOAGULANTS? NLACTIC [id number] 09:31:00* Test Item Value Reference Range Interpretation Comments LACTIC ACID (test code = LACT) 0.9 mmol/L 0.4-1.9 N BASIC METABOLIC [id number] 09:23:00* Test Item Value Reference Range Interpretation [...] code = CA) 8.8 mg/dL 8.5-10.1 N [id number] 09:23:00* Test Item Value Reference Range Interpretation Comments TROPONIN-I (test code = TROPI) <0.015 ng/mL 0-0.045 N - XR CHEST 1 [id number] 08:57:00 FAX: Amish Nur Si [phone] [place]: B St: REG FAX: Anastacio Burgess MD Name: KALYANI TALAVERA [facility] : 1955 Age/S: 64/F [address] Unit #: [id number] Loc: [place] [address] Phys: Anastacio Burgess MD Acct: [id number] Dis Date: Status: REG ER PHONE #: [phone] Exam Date: 06/28/2019825 FAX #: [phone] Reason: Shortness of Breath EXAMS: CPT CODE: [id number] XR CHEST 1 V 05306 REASON FOR EXAM: Shortness of Breath Exam [...] lung volumes with bibasilar subsegmental atelectasis. Location: [facility] at 0857 Reported and signed by: Dago Goodson MD CC: Lucille Land MD; Anastacio Burgess MD Technologist: Dayan Gallagher Trnscrd Date/Time/By: 06/28/2019 (0857) : By: [email or web address] Orig Print D/T: S: 06/28/2019 (0900) PAGE 1 Signed Report VENOUS BLOOD [id number] 08:54:00* Test Item Value Reference Range Interpretation Comments VENOUS BLOOD GAS PH (test code = PHV) 7.56 7.30-7.40 HH Results called to and read back by jairo 08:52 - 06/28/2019; by kushal stripper and opaquer apprentice VENOUS BLOOD GAS PCO2 (test code = PCO2V) 22.6 mm Hg 39.0-51.0 LL Results called to and read back by jairo 08:52 - 06/28/2019; by kushal stripper and opaquer apprentice VENOUS BLOOD GAS PO2 (test code = [...] METHGB) 0.3 % 0.0-1.50 N CBC W/O [id number] 08:45:00* Test Item Value Reference Range Interpretation [...] code = MPV) 10.1 fL 6.7-11.0 N [id number] 16:30:00* Test Item Value Reference Range Interpretation Comments GLUBED (test code = GLUBED) 256 mg/dL 74-106 H Performed by certified auxiliary equipment operator at [facility] [id number] 16:30:00* Test Item Value Reference Range Interpretation Comments GLUBED (test code = GLUBED) 277 mg/dL 74-106 H Performed by certified auxiliary equipment operator at [facility] [id number] 07:50:00* Test Item Value Reference Range Interpretation Comments GLUBED (test code = GLUBED) 145 mg/dL 74-106 H Performed by certified auxiliary equipment operator at [facility]2019-11-20 20:38:00* Test Item Value Reference Range Interpretation Comments GLUBED (test code = GLUBED) 250 mg/dL 74-106 H Performed by certified auxiliary equipment operator at [facility]2019-11-20 16:19:00* Test Item Value Reference Range Interpretation Comments GLUBED (test code = GLUBED) 340 mg/dL 74-106 H Performed by certified auxiliary equipment operator at [facility] [id number] 11:09:00* Test Item Value Reference Range Interpretation Comments GLUBED (test code = GLUBED) 102 mg/dL 74-106 N Performed by certified auxiliary equipment operator at [facility] [id number] 07:20:00* Test Item Value Reference Range Interpretation Comments GLUBED (test code = GLUBED) 144 mg/dL 74-106 H Performed by certified auxiliary equipment operator at [facility] [id number] 21:56:00* Test Item Value Reference Range Interpretation Comments GLUBED (test code = GLUBED) 328 mg/dL 74-106 H Performed by certified auxiliary equipment operator at [facility] [id number] 16:11:00* Test Item Value Reference Range Interpretation Comments GLUBED (test code = GLUBED) 378 mg/dL 74-106 H Performed by certified auxiliary equipment operator at [facility] [id number] 11:08:00* Test Item Value Reference Range Interpretation Comments GLUBED (test code = GLUBED) 168 mg/dL 74-106 H Performed by certified auxiliary equipment operator at [facility] [id number] 07:29:00* Test Item Value Reference Range Interpretation Comments GLUBED (test code = GLUBED) 205 mg/dL 74-106 H Performed by certified auxiliary equipment operator at [facility] B-TYPE NATRIURETIC [id number] 06:12:00* Test Item Value Reference Range Interpretation Comments B-TYPE NATRIURETIC PEPTIDE (test code = BNP) 86.51 pgram/mL 0-100 N COMPREHENSIVE METABOLIC [id number] 05:53:00* Test Item Value Reference Range Interpretation [...] due to change in reagent. COMPREHENSIVE METABOLIC [id number] 05:37:00* Test Item Value Reference Range Interpretation [...] code = ALKP) IUnit/L 45-117 CBC W/AUTO [id number] 05:26:00* Test Item Value Reference Range Interpretation [...] DIFF REQUIRED (test code = MDIFF) NO [id number] 02:25:00* Test Item Value Reference Range Interpretation Comments GLUBED (test code = GLUBED) 408 mg/dL 74-106 H Performed by certified auxiliary equipment operator at [facility] [id number] 17:10:00* Test Item Value Reference Range Interpretation Comments GLUCOSE (test code = GLU) 536 mg/dL 74-106 HH Re sults called to [id number] by V.LAB.LT 06/10/19 1710Critical results verified and read back by Nurse? Y [id number] 16:05:00* Test Item Value Reference Range Interpretation Comments GLUBED (test code = GLUBED) > 500 mg/dL 74-106 HH [facility] [id number] 11:05:00* Test Item Value Reference Range Interpretation Comments GLUBED (test code = GLUBED) 279 mg/dL 74-106 H Performed by certified auxiliary equipment operator at [facility] BASIC METABOLIC [id number] 11:02:00* Test Item Value Reference Range Interpretation [...] code = CA) 8.9 mg/dL 8.5-10.1 N [id number] 11:02:00* Test Item Value Reference Range Interpretation Comments MAGNESIUM (test code = MAG) 2.0 mg/dL 1.8-2.4 N BASIC METABOLIC [id number] 10:52:00* Test Item Value Reference Range Interpretation [...] CALCIUM (test code = CA) mg/dL 8.5-10.1 [id number] 10:52:00* Test Item Value Reference Range Interpretation Comments MAGNESIUM (test code = MAG) mg/dL 1.8-2.4 [id number] 07:27:00* Test Item Value Reference Range Interpretation Comments GLUBED (test code = GLUBED) 260 mg/dL 74-106 H Performed by certified auxiliary equipment operator at [facility] [id number] 20:43:00* Test Item Value Reference Range Interpretation Comments GLUBED (test code = GLUBED) 417 mg/dL 74-106 H Performed by certified auxiliary equipment operator at [facility] [id number] 15:54:00* Test Item Value Reference Range Interpretation Comments GLUBED (test code = GLUBED) 389 mg/dL 74-106 H Performed by certified auxiliary equipment operator at [facility] [id number] 12:24:00* Test Item Value Reference Range Interpretation Comments GLUBED (test code = GLUBED) 389 mg/dL 74-106 H Performed by certified auxiliary equipment operator at [facility] [id number] 07:56:00* Test Item Value Reference Range Interpretation Comments GLUBED (test code = GLUBED) 350 mg/dL 74-106 H Performed by certified auxiliary equipment operator at [facility] [id number] 04:10:00* Test Item Value Reference Range Interpretation Comments GLUBED (test code = GLUBED) 427 mg/dL 74-106 H Performed by certified auxiliary equipment operator at [facility] [id number] 19:56:00* Test Item Value Reference Range Interpretation Comments GLUBED (test code = GLUBED) 384 mg/dL 74-106 H Performed by certified auxiliary equipment operator at [facility] [id number] 16:27:00* Test Item Value Reference Range Interpretation Comments GLUBED (test code = GLUBED) 378 mg/dL 74-106 H Performed by certified auxiliary equipment operator at [facility] [id number] 12:06:00* Test Item Value Reference Range Interpretation Comments GLUBED (test code = GLUBED) 402 mg/dL 74-106 H Performed by certified auxiliary equipment operator at [facility] [id number] 11:11:00* Test Item Value Reference Range Interpretation Comments TROPONIN-I (test code = TROPI) <0.015 ng/mL 0-0.045 N COMMENTS TO SENIOR WINDOWS ADMINISTRATOR: COLLECT 3 HOURS AFTER PREVIOUS SAMPLEURINALYSIS [id number] 08:30:00* Test Item Value Reference Range Interpretation [...] MUCU) FEW #/LPF FEW Urine Source? Clean [id number] 07:35:00* Test Item Value Reference Range Interpretation Comments TROPONIN-I (test code = TROPI) <0.015 ng/mL 0-0.045 N COMMENTS TO SENIOR WINDOWS ADMINISTRATOR: COLLECT 3 HOURS AFTER PREVIOUS [id number] 06:35:00* Test Item Value Reference Range Interpretation Comments GLUBED (test code = GLUBED) 298 mg/dL 74-106 H Performed by certified auxiliary equipment operator at [facility] BASIC METABOLIC [id number] 01:22:00* Test Item Value Reference Range Interpretation [...] CA) 8.5 mg/dL 8.5-10.1 N HEPATIC FUNCTION [id number] 01:22:00* Test Item Value Reference Range Interpretation [...] reference range due to change in reagent. [id number] 01:22:00* Test Item Value Reference Range Interpretation Comments LIPASE (test code = LIP) 143 U/L 73.0-393.0 N [id number] 01:22:00* Test Item Value Reference Range Interpretation Comments TROPONIN-I (test code = TROPI) <0.015 ng/mL 0-0.045 N BASIC METABOLIC [id number] 01:14:00* Test Item Value Reference Range Interpretation [...] code = CA) mg/dL 8.5-10.1 HEPATIC FUNCTION [id number] 01:14:00* Test Item Value Reference Range Interpretation [...] TOTAL (test code = ALKP) IUnit/L 45-117 [id number] 01:14:00* Test Item Value Reference Range Interpretation Comments LIPASE (test code = LIP) U/L 73.0-393.0 [id number] 01:14:00* Test Item Value Reference Range Interpretation Comments TROPONIN-I (test code = TROPI) ng/mL 0-0.045 B-TYPE NATRIURETIC [id number] 00:16:00* Test Item Value Reference Range Interpretation Comments B-TYPE NATRIURETIC PEPTIDE (test code = BNP) 43.43 pgram/mL 0-100 N PROTHROMBIN [id number] 23:21:00* Test Item Value Reference Range Interpretation [...] (2.5-3.5) IS PATIENT ON ANTICOAGULANTS? NTHROMBOPLASTIN TIME [id number] 23:21:00* Test Item Value Reference Range Interpretation Comments THROMBOPLASTIN TIME PARTIAL (test code = PTT) 28.8 seconds 25.0-36. 5 N IS PATIENT ON ANTICOAGULANTS? NCBC W/O [id number] 23:12:00* Test Item Value Reference Range Interpretation [...] fL 6.7-11.0 N - XR CHEST 1 [id number] 23:01:00 FAX: Amish Nur [phone] [place]: [address] St: [facility] FAX: Anastacio Burgess MD Name: KALYANI T[facility]ERA [facility] : 1955 Age/S: 64/F [address] [facility] Unit #: [id number] Loc: [place] [address] Phys: Anastacio Burgess MD Acct: [id number] Dis Date: Status: REG ER PHONE #: [phone] Exam Date: 06/07/2019 2250 FAX #: [phone] Reason: Abdominal Pain EXAMS: CPT CODE: [id number] XR CHEST 1 V 56523 EXAM: Chest x-ray, one view; INFORMATION: Vomiting; abdominal pain; FINDINGS: Increased densities of the left lung which may be due to edema or infiltrative changes. The right lung is slightly better aerated. Bilateral atelectatic changes. The heart is slightly enlarged. IMPRESSION: 1. Left pulmonary edema or possibly interstitial infiltrative changes and basilar atelectatic changes. 2. Mild cardiomegaly. Location code: [facility] at 2301 Reported and signed by: Jc Bravo M.D. CC: Lucille Nur MD; Anastacio Burgess MD Technologist: Marcelino Reid RT(R); SCOOBY PARSONS RT(R) Trnscrd Date/Time/By: 06/07/2019 (2103) : By: Leanne GRW Orig Print D/T: S: 06/07/2019 (0926) PAGE 1 Signed Report - CT HEAD/BRAIN W/O [id number] 13:15:00 Name: KALYANI TALAVERA [facility] : 1955 Age/S: 64 / F [address] [facility] Unit #: [id number] Loc: [place] [address] Phys: Jessenia Be MD Acct: [id number] Dis Date: Status: REG ER PHONE #: [phone] Exam Date: 05/31/2019 1246 FAX #: [phone] Reason: pain, trauma EXAMS: CPT CODE: [id number] CT HEAD/BRAIN W/O CONT 60170 HISTORY: pain, trauma TECHNIQUE: Noncontrast 2.5 mm [...] is unchanged from the prior examination. Location: [facility] at 1315 Reported and signed by: Dago Goodson MD CC: Lucille Land MD; Jessenia Be MD Technologist:Kael Bhardwaj RT(R) CTDI: DLP: Trnscb Date/Time: 05/31/2019 (1315) t.SDR.RR31 Orig Print D/T: S: 05/31/2019 (4175) PAGE 1 Signed Report GLUBED 2019-05-31 12:02:00* Test Item Value Reference Range Interpretation Comments GLUBED (test code = GLUBED) 200 mg/dL 74-106 H Performed by certified auxiliary equipment operator at [facility] [id number] 09:10:00* Test Item Value Reference Range Interpretation Comments GLUBED (test code = GLUBED) 83 mg/dL 74-106 N Performed by certified auxiliary equipment operator at [facility] [id number] 11:47:00* Test Item Value Reference Range Interpretation Comments GLUBED (test code = GLUBED) 192 mg/dL 74-106 H Performed by certified auxiliary equipment operator at [facility] [id number] 07:59:00* Test Item Value Reference Range Interpretation Comments GLUBED (test code = GLUBED) 164 mg/dL 74-106 H Performed by certified auxiliary equipment operator at [facility] [id number] 21:14:00* Test Item Value Reference Range Interpretation Comments GLUBED (test code = GLUBED) 215 mg/dL 74-106 H Performed by certified auxiliary equipment operator at [facility] [id number] 15:34:00* Test Item Value Reference Range Interpretation Comments GLUBED (test code = GLUBED) 130 mg/dL 74-106 H Performed by certified auxiliary equipment operator at [facility] [id number] 12:10:00* Test Item Value Reference Range Interpretation Comments GLUBED (test code = GLUBED) 231 mg/dL 74-106 H Performed by certified auxiliary equipment operator at [facility] [id number] 08:38:00* Test Item Value Reference Range Interpretation Comments GLUBED (test code = GLUBED) 173 mg/dL 74-106 H Performed by certified auxiliary equipment operator at [facility] [id number] 20:39:00* Test Item Value Reference Range Interpretation Comments GLUBED (test code = GLUBED) 129 mg/dL 74-106 H Performed by certified auxiliary equipment operator at [facility]2019-10-30 16:16:00* Test Item Value Reference Range Interpretation Comments GLUBED (test code = GLUBED) 337 mg/dL 74-106 H Performed by certified auxiliary equipment operator at [facility]2019-10-30 12:15:00* Test Item Value Reference Range Interpretation Comments GLUBED (test code = GLUBED) 247 mg/dL 74-106 H Performed by certified auxiliary equipment operator at [facility] [id number] 08:03:00* Test Item Value Reference Range Interpretation Comments GLUBED (test code = GLUBED) 170 mg/dL 74-106 H Performed by certified auxiliary equipment operator at [facility] [id number] 20:11:00* Test Item Value Reference Range Interpretation Comments GLUBED (test code = GLUBED) 244 mg/dL 74-106 H Performed by certified auxiliary equipment operator at [facility] [id number] 17:36:00* Test Item Value Reference Range Interpretation Comments GLUBED (test code = GLUBED) 238 mg/dL 74-106 H Performed by certified auxiliary equipment operator at [facility] [id number] 16:06:00* Test Item Value Reference Range Interpretation Comments GLUBED (test code = GLUBED) 196 mg/dL 74-106 H Performed by certified auxiliary equipment operator at [facility] [id number] 12:42:00* Test Item Value Reference Range Interpretation Comments GLUBED (test code = GLUBED) 292 mg/dL 74-106 H Performed by certified auxiliary equipment operator at [facility] [id number] 09:09:00* Test Item Value Reference Range Interpretation Comments GLUBED (test code = GLUBED) 196 mg/dL 74-106 H Performed by certified auxiliary equipment operator at [facility] [id number] 20:30:00* Test Item Value Reference Range Interpretation Comments GLUBED (test code = GLUBED) 213 mg/dL 74-106 H Performed by certified auxiliary equipment operator at [facility] [id number] 18:23:00* Test Item Value Reference Range Interpretation Comments GLUBED (test code = GLUBED) 102 mg/dL 74-106 N Performed by certified auxiliary equipment operator at [facility] [id number] 17:02:00* Test Item Value Reference Range Interpretation Comments GLUBED (test code = GLUBED) 181 mg/dL 74-106 H Performed by certified auxiliary equipment operator at [facility] BASIC METABOLIC [id number] 15:17:00* Test Item Value Reference Range Interpretation [...] CA) 9.3 mg/dL 8.5-10.1 N BASIC METABOLIC [id number] 15:08:00* Test Item Value Reference Range Interpretation [...] CALCIUM (test code = CA) mg/dL 8.5-10.1 [id number] 12:53:00* Test Item Value Reference Range Interpretation Comments GLUBED (test code = GLUBED) 262 mg/dL 74-106 H Performed by certified auxiliary equipment operator at [facility] [id number] 08:22:00* Test Item Value Reference Range Interpretation Comments GLUBED (test code = GLUBED) 198 mg/dL 74-106 H Performed by certified auxiliary equipment operator at [facility] CBC W/AUTO [id number] 06:43:00* Test Item Value Reference Range Interpretation [...] = MDIFF) NO, ONLY SCAN NEEDED DIFFERENTIAL [id number] 06:43:00* Test Item Value Reference Range Interpretation Comments STAIN ACCEPTABILITY (test code = STN ACCEPTABLE) STAIN ACCEPTABLE MORPHOLOGY COMMENT (test code = MOC) NORMAL PLATELET ESTIMATE (test code = PLTEST) ADEQUATE PLATELET MORPHOLOGY (test code = PLTMORPH) NORMAL COMPREHENSIVE METABOLIC [id number] 05:19:00* Test Item Value Reference Range Interpretation [...] due to change in reagent. COMPREHENSIVE METABOLIC [id number] 05:11:00* Test Item Value Reference Range Interpretation [...] code = ALKP) IUnit/L 45-117 CBC W/AUTO [id number] 04:49:00* Test Item Value Reference Range Interpretation [...] = MDIFF) NO, ONLY SCAN NEEDED DIFFERENTIAL [id number] 04:49:00* Test Item Value Reference Range Interpretation Comments STAIN ACCEPTABILITY (test code = STN ACCEPTABLE) CABOT RINGS (test code = CAB) MORPHOLOGY COMMENT (test code = MOC) PLATELET ESTIMATE (test code = PLTEST) PLATELET MORPHOLOGY (test code = PLTMORPH) CBC W/AUTO [id number] 04:49:00* Test Item Value Reference Range Interpretation [...] = MDIFF) NO, ONLY SCAN NEEDED DIFFERENTIAL [id number] 04:49:00* Test Item Value Reference Range Interpretation Comments STAIN ACCEPTABILITY (test code = STN ACCEPTABLE) CABOT RINGS (test code = CAB) MORPHOLOGY COMMENT (test code = MOC) PLATELET ESTIMATE (test code = PLTEST) PLATELET MORPHOLOGY (test code = PLTMORPH) CBC W/AUTO [id number] 04:49:00* Test Item Value Reference Range Interpretation [...] = MDIFF) NO, ONLY SCAN NEEDED DIFFERENTIAL [id number] 04:49:00* Test Item Value Reference Range Interpretation Comments STAIN ACCEPTABILITY (test code = STN ACCEPTABLE) MORPHOLOGY COMMENT (test code = MOC) PLATELET ESTIMATE (test code = PLTEST) PLATELET MORPHOLOGY (test code = PLTMORPH) CBC W/AUTO [id number] 04:49:00* Test Item Value Reference Range Interpretation [...] = MDIFF) NO, ONLY SCAN NEEDED DIFFERENTIAL [id number] 04:49:00* Test Item Value Reference Range Interpretation Comments STAIN ACCEPTABILITY (test code = STN ACCEPTABLE) CABOT RINGS (test code = CAB) MORPHOLOGY COMMENT (test code = MOC) PLATELET ESTIMATE (test code = PLTEST) PLATELET MORPHOLOGY (test code = PLTMORPH) [id number] 21:00:00* Test Item Value Reference Range Interpretation Comments GLUBED (test code = GLUBED) 245 mg/dL 74-106 H Performed by certified auxiliary equipment operator at [facility] [id number] 17:03:00* Test Item Value Reference Range Interpretation Comments GLUBED (test code = GLUBED) 110 mg/dL 74-106 H Performed by certified auxiliary equipment operator at [facility] [id number] 13:56:00* Test Item Value Reference Range Interpretation Comments MAGNESIUM (test code = MAG) 2.4 mg/dL 1.8-2.4 N [id number] 11:32:00* Test Item Value Reference Range Interpretation Comments GLUBED (test code = GLUBED) 327 mg/dL 74-106 H Performed by certified auxiliary equipment operator at [facility] [id number] 07:46:00* Test Item Value Reference Range Interpretation Comments GLUBED (test code = GLUBED) 294 mg/dL 74-106 H Performed by certified auxiliary equipment operator at [facility] COMPREHENSIVE METABOLIC [id number] 05:18:00* Test Item Value Reference Range Interpretation [...] result is a direct measurement.========= THYROID STIMULATING [id number] 05:18:00* Test Item Value Reference Range Interpretation Comments THYROID STIMULATING HORMONE (test code = TSH) 2.610 uIU/mL 0.36-3.7 4 N TSH REFERENCE RANGES: EUTHYROID: 0.35 - 4.3 mIU/mL HYPO : > 5.5 mIU/mL HYPER : < 0.35 mIU/mL [id number] 05:18:00* Test Item Value Reference Range Interpretation Comments GLYCOSYLATED HEMOGLOBIN (HA1C) (test code = GLYHGB) 9.0 % HbA1 4. 8-6.0 H ESTIMATED AVERAGE GLUCOSE (test code = EAG) 212 MG/DL CBC W/AUTO [id number] 04:33:00* Test Item Value Reference Range Interpretation [...] code = BA#) K/mm3 0.0-0.2 CBC W/AUTO [id number] 04:33:00* Test Item Value Reference Range Interpretation [...] code = NRBC#) 0.00 K/mm3 0.0-0.1 N [id number] 20:34:00* Test Item Value Reference Range Interpretation Comments GLUBED (test code = GLUBED) 106 mg/dL 74-106 N Performed by certified auxiliary equipment operator at [facility] [id number] 16:44:00* Test Item Value Reference Range Interpretation Comments GLUBED (test code = GLUBED) 290 mg/dL 74-106 H Performed by certified auxiliary equipment operator at [facility] [id number] 16:44:00* Test Item Value Reference Range Interpretation Comments GLUBED (test code = GLUBED) 276 mg/dL 74-106 H Performed by certified auxiliary equipment operator at [facility] T4 [id number] 16:31:00* Test Item Value Reference Range Interpretation Comments T4 FREE (test code = T4F) 1.06 ng/dL 0.76-1.46 N THYROID STIMULATING [id number] 16:31:00* Test Item Value Reference Range Interpretation Comments THYROID STIMULATING HORMONE (test code = TSH) 0.871 uIU/mL 0.36-3.7 4 N TSH REFERENCE RANGES: EUTHYROID: 0.35 - 4.3 mIU/mL HYPO : > 5.5 mIU/mL HYPER : < 0.35 mIU/mL [id number] 16:30:00* Test Item Value Reference Range Interpretation Comments GLYCOSYLATED HEMOGLOBIN (HA1C) (test code = GLYHGB) 9.8 % HbA1 4. 8-6.0 H ESTIMATED AVERAGE GLUCOSE (test code = EAG) 235 MG/DL [id number] 12:28:00* Test Item Value Reference Range Interpretation Comments GLUBED (test code = GLUBED) 282 mg/dL 74-106 H Performed by certified auxiliary equipment operator at [facility] [id number] 11:21:00* Test Item Value Reference Range Interpretation Comments MAGNESIUM (test code = MAG) 2.3 mg/dL 1.8-2.4 N [id number] 10:04:00* Test Item Value Reference Range Interpretation Comments TROPONIN-I (test code = TROPI) <0.015 ng/mL 0-0.045 N COMMENTS TO SENIOR WINDOWS ADMINISTRATOR: COLLECT 3 HOURS AFTER PREVIOUS [id number] 04:34:00* Test Item Value Reference Range Interpretation Comments TROPONIN-I (test code = TROPI) <0.015 ng/mL 0-0.045 N COMMENTS TO SENIOR WINDOWS ADMINISTRATOR: COLLECT 3 HOURS AFTER PREVIOUS [id number] 04:12:00* Test Item Value Reference Range Interpretation Comments GLUBED (test code = GLUBED) 257 mg/dL 74-106 H Performed by certified auxiliary equipment operator at [facility] - CT CHEST W/O [id number] 23:57:00 Name: KALYANI TALAVERA [facility] : 1955 Age/S: 64 / F [address] [facility] Unit #: [id number] Loc: [place] [address] Phys: Leonora Goins MD Acct: [id number] Dis Date: Status: REG ER PHONE #: [phone] Exam Date: 05/17/2019 2320 FAX #: [phone] Reason: shortneess of breath, weakness EXAMS: CPT CODE: [id number] CT CHEST W/O CONTRAST 15148 LOCATION: Q15 HISTORY: 64-year-old female who presents [...] 1 Signed Report (CONTINUED) Name: KALYANI TALAVERA [facility] : 1955 Age/S: 64 / F [address] Unit #: [id number] Loc: [place] [address] Phys: Leonora Goins MD Acct: [id number] Dis Date: S tatus: REG ER PHONE #: [phone] Exam Da te: 05/17/2019 2320 FAX #: [phone] Reason: shortn eess of breath, weakness EXAMS: CPT CODE: [id number] CT CHEST W/O CONTRAST 57190 <Continued> CC: Lucille Nur MD; Leonora Goins MD Technologist:JORDEN MERCADO, RT CTDI: DLP: Trnscb Date/Time: 05/17/2019 (0537) t.SDR.RLA2 Orig Print D/T: S: 05/18/2019 (0000) PAGE 2 Signed Report [id number] 22:38:00* Test Item Value Reference Range Interpretation Comments GLUBED (test code = GLUBED) 373 mg/dL 74-106 H Performed by certified auxiliary equipment operator at [facility] [id number] 22:38:00* Test Item Value Reference Range Interpretation Comments GLUBED (test code = GLUBED) 422 mg/dL 74-106 H Performed by certified auxiliary equipment operator at [facility] - CT HEAD/BRAIN W/O [id number] 22:09:00 Name: KALYANI TALAVERA [facility] : 1955 Age/S: 64 / F [address] Unit #: [id number] Loc: [place] [address] Phys: Leonora Goins MD Acct: [id number] Dis Date: Status: REG ER PHONE #: [phone] Exam Date: 05/17/20192118 FAX #: [phone] Reason: weakness EXAMS: CPT CODE: [id number] CT HEAD/BRAIN W/O CONT 33659 HISTORY: weakness TECHNIQUE: Noncontrast 2.5 mm axial [...] process or change from prior exam. Location: [facility] at 2209 Reported and signed by: Dago Goodson MD CC: Chris Nur MD; Leonora Goins MD Technologist:RT SOTO(R) CT CTDI: DLP: Trnscb Date/Time: 05/17/2019 (2208) t.SDR.RR31 Orig Print D/T: S: 05/17/2019 (2211) PAGE 1 Signed Report BASIC METABOLIC [id number] 22:03:00* Test Item Value Reference Range Interpretation [...] CA) 8.6 mg/dL 8.5-10.1 N HEPATIC FUNCTION [id number] 22:03:00* Test Item Value Reference Range Interpretation [...] reference range due to change in reagent. [id number] 22:03:00* Test Item Value Reference Range Interpretation Comments LIPASE (test code = LIP) 105 U/L 73.0-393.0 N [id number] 22:03:00* Test Item Value Reference Range Interpretation Comments TROPONIN-I (test code = TROPI) <0.015 ng/mL 0-0.045 N - XR CHEST 1 [id number] 22:01:00 FAX: Amish Nur Si [phone] [place]: B : [facility] FAX: Leonora Norton [phone] Name: KALYANI TALAVERA [facility] : 1955 Age/S: 64/F [address] Unit #: [id number] Loc: [place] [address] Phys: Leonora Goins MD Acct: [id number] Dis Date: Status: REG ER PHONE #: [phone] Exam Date: 05/17/20192109 FAX #: [phone] Reason: WEAKNESS EXAMS: CPT CODE: [id number] XR CHEST 1 V 58985 REASON FOR EXAM: WEAKNESS Exam Order Date: [...] be secondary to diminished lung volumes. Location: [facility] at 2201 Reported and signed by: Dago Goodson MD CC: Lucille Land MD; Leonora Goins MD Technologist: EZEQUIEL CHAPA Trnscrd Date/Time/By: 05/17/2019 (2200) : By: Jaylan.RR31 Orig Print D/T: S: 05/17/2019 () PAGE 1 Signed Report URINALYSIS [id number] 21:54:00* Test Item Value Reference Range Interpretation [...] #/HPF NONE Urine Source? Clean CatchBASIC METABOLIC [id number] 21:42:00* Test Item Value Reference Range Interpretation [...] code = CA) mg/dL 8.5-10.1 HEPATIC FUNCTION [id number] 21:42:00* Test Item Value Reference Range Interpretation [...] TOTAL (test code = ALKP) IUnit/L 45-117 [id number] 21:42:00* Test Item Value Reference Range Interpretation Comments LIPASE (test code = LIP) U/L 73.0-393.0 [id number] 21:42:00* Test Item Value Reference Range Interpretation Comments TROPONIN-I (test code = TROPI) ng/mL 0-0.045 CBC W/O [id number] 21:33:00* Test Item Value Reference Range Interpretation [...] code = MPV) 10.9 fL 6.7-11.0 N [id number] 02:14:00* Test Item Value Reference Range Interpretation Comments GLUBED (test code = GLUBED) 359 mg/dL 74-106 H Performed by certified auxiliary equipment operator at [facility] [id number] 01:04:00* Test Item Value Reference Range Interpretation Comments GLUBED (test code = GLUBED) 484 mg/dL 74-106 H Performed by certified auxiliary equipment operator at [facility] URINALYSIS [id number] 00:11:00* Test Item Value Reference Range Interpretation [...] per HPF NONE Urine Source? Clean CatchURINALYSIS [id number] 00:07:00* Test Item Value Reference Range Interpretation [...] HPF NONE Urine Source? Clean CatchBASIC METABOLIC [id number] 23:16:00* Test Item Value Reference Range Interpretation Comments SODIUM (test code = NA) 132 mmol/L 136-145 L POTASSIUM (test code = K) 4.8 mmol/L 3.5-5.1 N CHLORIDE (test code = CL) 99.0 mmol/L 98-107 N CARBON DIOXIDE (test code = CO2) 25.0 mmol/L 21-32 N ANION GAP (test code = GAP) 12.8 10-20 N GLUCOSE (test code = GLU) 631 mg/dL 74-106 [facility] sults called to by ROSE 04/30/19 2316Critical [...] CA) 8.6 mg/dL 8.5-10.1 N HEPATIC FUNCTION [id number] 23:16:00* Test Item Value Reference Range Interpretation [...] reference range due to change in reagent. [id number] 23:16:00* Test Item Value Reference Range Interpretation Comments TROPONIN-I (test code = TROPI) <0.015 ng/mL 0-0.045 N BASIC METABOLIC [id number] 22:52:00* Test Item Value Reference Range Interpretation [...] code = CA) mg/dL 8.5-10.1 HEPATIC FUNCTION [id number] 22:52:00* Test Item Value Reference Range Interpretation [...] TOTAL (test code = ALKP) IUnit/L 45-117 [id number] 22:52:00* Test Item Value Reference Range Interpretation Comments TROPONIN-I (test code = TROPI) ng/mL 0-0.045 - CT HEAD/BRAIN W/O [id number] 22:44:00 Name: KALYANI TALAVERA [facility] : 1955 Age/S: 64 / F [address] [facility] Unit #: [id number] Loc: [place] [address] Phys: Vince Jones DO Acct: [id number] Dis Date: Status: REG ER PHONE #: [phone] Exam Date: 04/30/20192231 FAX #: [phone] Reason: headache/blurry vision EXAMS: CPT CODE: [id number] CT HEAD/BRAIN W/O CONT 84414 HISTORY: headache/blurry vision TECHNIQUE: Noncontrast 2.5 mm [...] Chavez CTDI: DL P: Trnscb Date/Time: 04/30/2019 (1599) tSTACIAR.RR31 O rig Print D/T: S: 04/30/2019 (2483) PAGE 1 Signed Re port CBC W/AUTO [id number] 22:43:00* Test Item Value Reference Range Interpretation [...] DIFF REQUIRED (test code = MDIFF) NO [id number] 22:16:00* Test Item Value Reference Range Interpretation Comments GLUBED (test code = GLUBED) > 500 mg/dL 74-106 HH [facility]~ KNEE RIGHT THREE [id number] 04:11:00 [place] [address] Patient Name: KALYANI TALAVERA MR #: [id number] : 1955 Age/Sex: 64/F Req #: [id number] Adm Physician: Ordered by: JACQUES JANE MD [...] 04/27/19411 COPY TO: JACQUES JANE MD Bedside Ffjmaoi8905-27-25 04:02:00* Test Item Value Reference Range Interpretation Comments Bedside Glucose (test code = 06179-2) 387 70-120 H Meter ID: [id number] [facility] Glucose 2019-04-18 04:02:00* Test Item Value Reference Range Interpretation Comments Bedside Glucose (test code = 03908-1) 387 70-120 H Meter ID: [id number] [facility] Glucose 2019-03-15 03:09:00* Test Item Value Reference Range Interpretation Comments Bedside Glucose (test code = 24260-6) 272 70-120 H Meter ID: [id number] [facility] Glucose 2019-03-15 03:09:00* Test Item Value Reference Range Interpretation Comments Bedside Glucose (test code = 37828-3) 272 70-120 H Meter ID: [id number] [facility]2019-03-15 03:03:00 [place] [address] Patient Name: KALYANI TALAVERA MR #: [id number] : 1955 Age/Sex: 64/F Req #: [id number] Adm Physician: Ordered by: JACQUES JANE MD Report #: [id number] Location: ER Room/Bed: Procedure: 0800 06 DX/CHEST SINGLE (PORTABLE) Exam Date: 03/15/19 [...] 03/15/19313 COPY TO: JACQUES JANE MD Sodium [id number] 02:29:00* Test Item Value Reference Range Interpretation Comments Sodium Level (test code = 2951-2) 134 136-145 L [facility] Gegap5231-89-13 02:29:00* Test Item Value Reference Range Interpretation Comments Potassium Level (test code = 2823-3) 4.2 3.5-5.1 [facility]ide Oxzab6329-40-75 02:29:00* Test Item Value Reference Range Interpretation Comments Chloride Level (test code = 2075-0) 99 98-107 [facility] Dioxide Yoshd9273-24-22 02:29:00* Test Item Value Reference Range Interpretation Comments Carbon Dioxide Level (test code = 2028-9) 25 22-29 [facility]Anion Qqf4372-90-58 02:29:00* Test Item Value Reference Range Interpretation Comments Anion Gap (test code = 16718-3) 14.2 8-16 [facility] Urea Uhbfvsla7350-23-39 02:29:00* Test Item Value Reference Range Interpretation Comments Blood Urea Nitrogen (test code = 3094-0) 26 7-26 [facility]Creatinine2019-08-23 02:29:00* Test Item Value Reference Range Interpretation Comments Creatinine (test code = 2160-0) 1.11 0.57-1.11 [facility]BUN/Creatinine Eotlp8590-88-31 02:29:00* Test Item Value Reference Range Interpretation Comments BUN/Creatinine Ratio (test code = 3097-3) 13 01- [facility]Estimat Glomerular Filtration Rate 2019-03-15 02:29:00* Test Item Value Reference Range Interpretation Comments Estimat Glomerular Filtration Rate (test code = 829198364) 50 >60 L Ranges were taken from the National Kidney Disease Education Program and the [facility] Kidney Foundation literature.Reference ranges:60 or greater: Ctjscz77-14 ( for 3 consecutive months): Chronic kidney disease 15 or less: Kidney failureAdventHealthGlucose Jelcc2705-36-58 02:29:00* Test Item Value Reference Range Interpretation Comments Glucose Level (test code = JUK0989) 559 74-118 HH Results repeated and called to THELMA DONALDSON RN at 0229 on 03/15/19 by Francoise Proctor. Read back and verified.[facility]HealthCalcium Ytpcw6002-70-28 02:29:00* Test Item Value Reference Range Interpretation Comments Calcium Level (test code = 45660-2) 8.8 8.4-10.2 [facility] Lbfys1043-76-83 02:29:00* Test Item Value Reference Range Interpretation Comments Sodium Level (test code = 2951-2) 134 136-145 L [facility]assium Bqsxq7322-06-22 02:29:00* Test Item Value Reference Range Interpretation Comments Potassium Level (test code = 2823-3) 4.2 3.5-5.1 [facility]Chloride Hmzbo1244-10-28 02:29:00* Test Item Value Reference Range Interpretation Comments Chloride Level (test code = 2075-0) 99 98-107 [facility]Carbon Dioxide Irpin3745-65-43 02:29:00* Test Item Value Reference Range Interpretation Comments Carbon Dioxide Level (test code = 2028-9) 25 22-29 [facility]Anion Nxy0313-05-55 02:29:00* Test Item Value Reference Range Interpretation Comments Anion Gap (test code = 43795-6) 14.2 8-16 [facility]Blood Urea Xthdqyiz5192-38-18 02:29:00* Test Item Value Reference Range Interpretation Comments Blood Urea Nitrogen (test code = 3094-0) 26 7- [facility]Creatinine2019-08-23 02:29:00* Test Item Value Reference Range Interpretation Comments Creatinine (test code = 2160-0) 1.11 0.57-1.11 [facility]BUN/Creatinine Slifb3787-22-32 02:29:00* Test Item Value Reference Range Interpretation Comments BUN/Creatinine Ratio (test code = 3097-3) 23 6- [facility]Estimat Glomerular Filtration Rate 2019-03-15 02:29:00* Test Item Value Reference Range Interpretation Comments Estimat Glomerular Filtration Rate (test code = 775685673) 50 >60 L Ranges were taken from the National Kidney Disease Education Program and the [facility] literature.Reference ranges:60 or greater: Idxnyu35-30 ( for 3 consecutive months): Chronic kidney disease 15 or less: Kidney failureAdventHealthGlucose Kytqx1188-78-15 02:29:00* Test Item Value Reference Range Interpretation Comments Glucose Level (test code = ILH5958) 554 74-118 Results repeated and called to THELMA DONALDSON RN at 0229 on 03/15/19 by Francoise Proctor. Read back and verified.[facility]Calcium Tytrr7591-41-54 02:29:00* Test Item Value Reference Range Interpretation Comments Calcium Level (test code = 67643-3) 8.8 8.4-10.2 [facility] Mfvdg9795-75-21 02:29:00* Test Item Value Reference Range Interpretation Comments Sodium Level (test code = 2951-2) 134 136-145 L [facility]Potassium Lqvhc6081-04-61 02:29:00* Test Item Value Reference Range Interpretation Comments Potassium Level (test code = 2823-3) 4.2 3.5-5.1 [facility] Eabra0964-32-35 02:29:00* Test Item Value Reference Range Interpretation Comments Chloride Level (test code = 2075-0) 99 98-107 [facility] Dioxide Fcueb6549-87-89 02:29:00* Test Item Value Reference Range Interpretation Comments Carbon Dioxide Level (test code = 2028-9) 25 22-29 [facility] Ody6965-31-19 02:29:00* Test Item Value Reference Range Interpretation Comments Anion Gap (test code = 45778-3) 14.2 8-16 [facility] Urea Eonmtzbv8915-20-51 02:29:00* Test Item Value Reference Range Interpretation Comments Blood Urea Nitrogen (test code = 3094-0) 26 7-26 [facility]Creatinine2019-08-23 02:29:00* Test Item Value Reference Range Interpretation Comments Creatinine (test code = 2160-0) 1.11 0.57-1.11 [facility]BUN/Creatinine Klouz5314-40-13 02:29:00* Test Item Value Reference Range Interpretation Comments BUN/Creatinine Ratio (test code = 3097-3) 23 6-25 [facility] Glomerular Filtration Rate 2019-03-15 02:29:00* Test Item Value Reference Range Interpretation Comments Estimat Glomerular Filtration Rate (test code = 811944260) 50 >60 L Ranges were taken from the National Kidney Disease Education Program and the [facility] literature.Reference ranges:60 or greater: Xcohex64-02 ( for 3 consecutive months): Chronic kidney disease 15 or less: Kidney failureAdventHealthGlucose Stzea0797-23-12 02:29:00* Test Item Value Reference Range Interpretation Comments Glucose Level (test code = RQW2363) 464 74-191 Results repeated and called to THELMA DONALDSON RN at 0229 on 03/15/19 by Francoise Proctor. Read back and verified.[facility]cium Nfbbt9541-40-37 02:29:00* Test Item Value Reference Range Interpretation Comments Calcium Level (test code = 34072-8) 8.8 8.4-10.2 [facility] Yjrqz8202-25-91 02:29:00* Test Item Value Reference Range Interpretation Comments Sodium Level (test code = 2951-2) 134 136-145 L [facility]Potassium Hccsc0468-25-28 02:29:00* Test Item Value Reference Range Interpretation Comments Potassium Level (test code = 2823-3) 4.2 3.5-5.1 [facility] Qjjco6178-54-58 02:29:00* Test Item Value Reference Range Interpretation Comments Chloride Level (test code = 2075-0) 99 98-107 [facility] D[facility]ide Rjxlg6917-73-17 02:29:00* Test Item Value Reference Range Interpretation Comments Carbon Dioxide Level (test code = 2028-9) 25 22-29 [facility] Glk2942-83-14 02:29:00* Test Item Value Reference Range Interpretation Comments Anion Gap (test code = 71986-5) 14.2 8-16 [facility]Blood Urea Bichmlet0481-07-87 02:29:00* Test Item Value Reference Range Interpretation Comments Blood Urea Nitrogen (test code = 3094-0) 26 7-26 [facility]Creatinine2019-08-23 02:29:00* Test Item Value Reference Range Interpretation Comments Creatinine (test code = 2160-0) 1.11 0.57-1.11 [facility]BUN/Creatinine Yngql6509-53-45 02:29:00* Test Item Value Reference Range Interpretation Comments BUN/Creatinine Ratio (test code = 3097-3) 23 6-25 [facility] Glomerular Filtration Rate 2019-03-15 02:29:00* Test Item Value Reference Range Interpretation Comments Estimat Glomerular Filtration Rate (test code = 569709369) 50 >60 L Ranges were taken from the National Kidney Disease Education Program and the [facility] literature.Reference ranges:60 or greater: Syssmj07-25 ( for 3 consecutive months): Chronic kidney disease 15 or less: Kidney failureAdventHealthGlucose Rhtpx4385-98-17 02:29:00* Test Item Value Reference Range Interpretation Comments Glucose Level (test code = ITU7427) 551 74118 HH Results repeated and called to THELMA DONALDSON RN at 0229 on 03/15/19 by Francoise Proctor. Read back and verified.[facility]Calcium Gboyi8492-71-78 02:29:00* Test Item Value Reference Range Interpretation Comments Calcium Level (test code = 48879-1) 8.8 8.4-10.2 [facility]White Blood Driiq2539-79-69 02:16:00* Test Item Value Reference Range Interpretation Comments White Blood Count (test code = 6690-2) 5.52 4.8-10.8 [facility]Red Blood Zdkdz2826-69-11 02:16:00* Test Item Value Reference Range Interpretation Comments Red Blood Count (test code = 789-8) 4.47 3.6-5.1 [facility]Hemoglobin2019-08-23 02:16:00* Test Item Value Reference Range Interpretation Comments Hemoglobin (test code = 12479-8) 11.3 12.0-16.0 L [facility]Hematocrit2019-08-23 02:16:00* Test Item Value Reference Range Interpretation Comments Hematocrit (test code = 4544-3) 38.1 34.2-44.1 [facility]Mean Corpuscular Bjblqu2977-35-90 02:16:00* Test Item Value Reference Range Interpretation Comments Mean Corpuscular Volume (test code = 787-2) 85.2 81-99 [facility] Corpuscular Tdazvkdnsm1174-71-77 02:16:00* Test Item Value Reference Range Interpretation Comments Mean Corpuscular Hemoglobin (test code = 785-6) 25.3 28-32 L [facility]Mean Corpuscular Hemoglobin Concent 2019-03-15 02:16:00* Test Item Value Reference Range Interpretation Comments Mean Corpuscular Hemoglobin Concent (test code = 786-4) 29.7 31-35 L [facility]Red Cell Distribution Dpspi5533-54-46 02:16:00* Test Item Value Reference Range Interpretation Comments Red Cell Distribution Width (test code = 33197-7) 16.0 11.7 -14.4 H [facility]Platelet Sstzi9672-75-00 02:16:00* Test Item Value Reference Range Interpretation Comments Platelet Count (test code = 777-3) 175 140-360 [facility]Neutrophils (%) (Auto)2019-03-15 02:16:00 * Test Item Value Reference Range Interpretation Comments Neutrophils (%) (Auto) (test code = 07548-1) 71.8 38.7-80.0 [facility]Lymphocytes (%) (Auto)2019-03-15 02:16:00 * Test Item Value Reference Range Interpretation Comments Lymphocytes (%) (Auto) (test code = 736-9) 20.1 18.0-39.1 [facility]Monocytes (%) (Auto)2019-03-15 02:16:00* Test Item Value Reference Range Interpretation Comments Monocytes (%) (Auto) (test code = 5905-5) 3.8 4.4-11.3 L [facility]Eosinophils (%) (Auto)2019-03-15 02:16:00 * Test Item Value Reference Range Interpretation Comments Eosinophils (%) (Auto) (test code = 713-8) 1.8 0.0-6.0 [facility]Basophils (%) (Auto)2019-03-15 02:16:00* Test Item Value Reference Range Interpretation Comments Basophils (%) (Auto) (test code = 706-2) 0.9 0.0-1.0 [facility]HealthIM GRANULOCYTES %2019-03-15 02:16:00* Test Item Value Reference Range Interpretation Comments IM GRANULOCYTES % (test code = IM GRANULOCYTES %) 1.6 0.0- 1.0 H [facility]Neutrophils # (Auto)2019-03-15 02:16:00* Test Item Value Reference Range Interpretation Comments Neutrophils # (Auto) (test code = 751-8) 4.0 2.1-6.9 [facility]Lymphocytes # (Auto)2019-03-15 02:16:00* Test Item Value Reference Range Interpretation Comments Lymphocytes # (Auto) (test code = 27098-8) 1.1 1.0-3.2 [facility]Monocytes # (Auto)2019-03-15 02:16:00* Test Item Value Reference Range Interpretation Comments Monocytes # (Auto) (test code = 742-7) 0.2 0.2-0.8 [facility]Eosinophils # (Auto)2019-03-15 02:16:00* Test Item Value Reference Range Interpretation Comments Eosinophils # (Auto) (test code = 711-2) 0.1 0.0-0.4 [facility]Basophils # (Auto)2019-03-15 02:16:00* Test Item Value Reference Range Interpretation Comments Basophils # (Auto) (test code = 704-7) 0.1 0.0-0.1 [facility]Absolute Immature Granulocyte (auto 2019-03-15 02:16:00* Test Item Value Reference Range Interpretation Comments Absolute Immature Granulocyte (auto (joseph t code = Absolute Immature Granulocyte (auto) 0.09 0-0.1 [facility]White Blood Aincc4929-67-95 02:16:00* Test Item Value Reference Range Interpretation Comments White Blood Count (test code = 6690-2) 5.52 4.8-10.8 [facility]Red Blood Bejrb1066-17-14 02:16:00* Test Item Value Reference Range Interpretation Comments Red Blood Count (test code = 789-8) 4.47 3.6-5.1 [facility]Hemoglobin2019-08-23 02:16:00* Test Item Value Reference Range Interpretation Comments Hemoglobin (test code = 15802-6) 11.3 12.0-16.0 L [facility]Hematocrit2019-08-23 02:16:00* Test Item Value Reference Range Interpretation Comments Hematocrit (test code = 4544-3) 38.1 34.2-44.1 [facility]Mean Corpuscular Eqtdgo6546-40-92 02:16:00* Test Item Value Reference Range Interpretation Comments Mean Corpuscular Volume (test code = 787-2) 85.2 81-99 [facility]Mean Corpuscular Bcrhqdbdub1577-04-47 02:16:00* Test Item Value Reference Range Interpretation Comments Mean Corpuscular Hemoglobin (test code = 785-6) 25.3 28-32 L [facility]Mean Corpuscular Hemoglobin Concent 2019-03-15 02:16:00* Test Item Value Reference Range Interpretation Comments Mean Corpuscular Hemoglobin Concent (test code = 786-4) 29.7 31-35 L [facility]HealthRed Cell Distribution Tylkb3636-02-26 02:16:00* Test Item Value Reference Range Interpretation Comments Red Cell Distribution Width (test code = 47671-6) 16.0 11.7 -14.4 H [facility]Platelet Ngute6130-42-87 02:16:00* Test Item Value Reference Range Interpretation Comments Platelet Count (test code = 777-3) 175 140-360 [facility]Neutrophils (%) (Auto)2019-03-15 02:16:00 * Test Item Value Reference Range Interpretation Comments Neutrophils (%) (Auto) (test code = 34785-1) 71.8 38.7-80.0 [facility]Lymphocytes (%) (Auto)2019-03-15 02:16:00 * Test Item Value Reference Range Interpretation Comments Lymphocytes (%) (Auto) (test code = 736-9) 20.1 18.0-39.1 [facility]Monocytes (%) (Auto)2019-03-15 02:16:00* Test Item Value Reference Range Interpretation Comments Monocytes (%) (Auto) (test code = 5905-5) 3.8 4.4-11.3 L [facility]Eosinophils (%) (Auto)2019-03-15 02:16:00 * Test Item Value Reference Range Interpretation Comments Eosinophils (%) (Auto) (test code = 713-8) 1.8 0.0-6.0 [facility]Basophils (%) (Auto)2019-03-15 02:16:00* Test Item Value Reference Range Interpretation Comments Basophils (%) (Auto) (test code = 706-2) 0.9 0.0-1.0 [facility]HealthIM GRANULOCYTES %2019-03-15 02:16:00* Test Item Value Reference Range Interpretation Comments IM GRANULOCYTES % (test code = IM GRANULOCYTES %) 1.6 0.0- 1.0 H [facility]Neutrophils # (Auto)2019-03-15 02:16:00* Test Item Value Reference Range Interpretation Comments Neutrophils # (Auto) (test code = 751-8) 4.0 2.1-6.9 [facility]Lymphocytes # (Auto)2019-03-15 02:16:00* Test Item Value Reference Range Interpretation Comments Lymphocytes # (Auto) (test code = 65651-0) 1.1 1.0-3.2 [facility]Monocytes # (Auto)2019-03-15 02:16:00* Test Item Value Reference Range Interpretation Comments Monocytes # (Auto) (test code = 742-7) 0.2 0.2-0.8 [facility]Eosinophils # (Auto)2019-03-15 02:16:00* Test Item Value Reference Range Interpretation Comments Eosinophils # (Auto) (test code = 711-2) 0.1 0.0-0.4 [facility]Basophils # (Auto)2019-03-15 02:16:00* Test Item Value Reference Range Interpretation Comments Basophils # (Auto) (test code = 704-7) 0.1 0.0-0.1 [facility]Absolute Immature Granulocyte (auto 2019-03-15 02:16:00* Test Item Value Reference Range Interpretation Comments Absolute Immature Granulocyte (auto (joseph t code = Absolute Immature Granulocyte (auto) 0.09 0-0.1 [facility]White Blood Jdhxx8029-47-75 02:16:00* Test Item Value Reference Range Interpretation Comments White Blood Count (test code = 6690-2) 5.52 4.8-10.8 [facility]Red Blood Sdaad6637-50-67 02:16:00* Test Item Value Reference Range Interpretation Comments Red Blood Count (test code = 789-8) 4.47 3.6-5.1 [facility]Hemoglobin2019-08-23 02:16:00* Test Item Value Reference Range Interpretation Comments Hemoglobin (test code = 53551-4) 11.3 12.0-16.0 L [facility]Hematocrit2019-08-23 02:16:00* Test Item Value Reference Range Interpretation Comments Hematocrit (test code = 4544-3) 38.1 34.2-44.1 [facility]Mean Corpuscular Oryava0976-24-08 02:16:00* Test Item Value Reference Range Interpretation Comments Mean Corpuscular Volume (test code = 787-2) 85.2 81-99 [facility]Mean Corpuscular Cfddyzsehe6524-12-59 02:16:00* Test Item Value Reference Range Interpretation Comments Mean Corpuscular Hemoglobin (test code = 785-6) 25.3 28-32 L [facility]Mean Corpuscular Hemoglobin Concent 2019-03-15 02:16:00* Test Item Value Reference Range Interpretation Comments Mean Corpuscular Hemoglobin Concent (test code = 786-4) 29.7 31-35 L [facility]Red Cell Distribution Nmold3676-24-82 02:16:00* Test Item Value Reference Range Interpretation Comments Red Cell Distribution Width (test code = 28395-8) 16.0 11.7 -14.4 H [facility]atelet Rvyle9165-70-95 02:16:00* Test Item Value Reference Range Interpretation Comments Platelet Count (test code = 777-3) 175 140-360 [facility]Neutrophils (%) (Auto)2019-03-15 02:16:00 * Test Item Value Reference Range Interpretation Comments Neutrophils (%) (Auto) (test code = 05319-7) 71.8 38.7-80.0 [facility]Lymphocytes (%) (Auto)2019-03-15 02:16:00 * Test Item Value Reference Range Interpretation Comments Lymphocytes (%) (Auto) (test code = 736-9) 20.1 18.0-39.1 [facility]Monocytes (%) (Auto)2019-03-15 02:16:00* Test Item Value Reference Range Interpretation Comments Monocytes (%) (Auto) (test code = 5905-5) 3.8 4.4-11.3 L [facility]Eosinophils (%) (Auto)2019-03-15 02:16:00 * Test Item Value Reference Range Interpretation Comments Eosinophils (%) (Auto) (test code = 713-8) 1.8 0.0-6.0 [facility]Basophils (%) (Auto)2019-03-15 02:16:00* Test Item Value Reference Range Interpretation Comments Basophils (%) (Auto) (test code = 706-2) 0.9 0.0-1.0 [facility]HealthIM GRANULOCYTES %2019-03-15 02:16:00* Test Item Value Reference Range Interpretation Comments IM GRANULOCYTES % (test code = IM GRANULOCYTES %) 1.6 0.0- 1.0 H [facility]Neutrophils # (Auto)2019-03-15 02:16:00* Test Item Value Reference Range Interpretation Comments Neutrophils # (Auto) (test code = 751-8) 4.0 2.1-6.9 [facility]Lymphocytes # (Auto)2019-03-15 02:16:00* Test Item Value Reference Range Interpretation Comments Lymphocytes # (Auto) (test code = 60059-2) 1.1 1.0-3.2 [facility]Monocytes # (Auto)2019-03-15 02:16:00* Test Item Value Reference Range Interpretation Comments Monocytes # (Auto) (test code = 742-7) 0.2 0.2-0.8 [facility]Eosinophils # (Auto)2019-03-15 02:16:00* Test Item Value Reference Range Interpretation Comments Eosinophils # (Auto) (test code = 711-2) 0.1 0.0-0.4 [facility]Basophils # (Auto)2019-03-15 02:16:00* Test Item Value Reference Range Interpretation Comments Basophils # (Auto) (test code = 704-7) 0.1 0.0-0.1 [facility]Absolute Immature Granulocyte (auto 2019-03-15 02:16:00* Test Item Value Reference Range Interpretation Comments Absolute Immature Granulocyte (auto (joseph t code = Absolute Immature Granulocyte (auto) 0.09 0-0.1 [facility]White Blood Joiqy2513-67-70 02:16:00* Test Item Value Reference Range Interpretation Comments White Blood Count (test code = 6690-2) 5.52 4.8-10.8 [facility]Red Blood Qpboc2122-82-71 02:16:00* Test Item Value Reference Range Interpretation Comments Red Blood Count (test code = 789-8) 4.47 3.6-5.1 [facility]Hemoglobin2019-08-23 02:16:00* Test Item Value Reference Range Interpretation Comments Hemoglobin (test code = 86324-8) 11.3 12.0-16.0 L [facility]Hematocrit2019-08-23 02:16:00* Test Item Value Reference Range Interpretation Comments Hematocrit (test code = 4544-3) 38.1 34.2-44.1 [facility]Mean Corpuscular Pwzigc7680-67-07 02:16:00* Test Item Value Reference Range Interpretation Comments Mean Corpuscular Volume (test code = 787-2) 85.2 81-99 [facility] Corpuscular Nxneqqmyfe2880-71-30 02:16:00* Test Item Value Reference Range Interpretation Comments Mean Corpuscular Hemoglobin (test code = 785-6) 25.3 28-32 L [facility]Mean Corpuscular Hemoglobin Concent 2019-03-15 02:16:00* Test Item Value Reference Range Interpretation Comments Mean Corpuscular Hemoglobin Concent (test code = 786-4) 29.7 31-35 L [facility]Red Cell Distribution Gwvdk3064-03-90 02:16:00* Test Item Value Reference Range Interpretation Comments Red Cell Distribution Width (test code = 04830-4) 16.0 11.7 -14.4 H [facility]Platelet Mfzbu5384-43-89 02:16:00* Test Item Value Reference Range Interpretation Comments Platelet Count (test code = 777-3) 175 140-360 [facility]Neutrophils (%) (Auto)2019-03-15 02:16:00 * Test Item Value Reference Range Interpretation Comments Neutrophils (%) (Auto) (test code = 75856-7) 71.8 38.7-80.0 [facility]Lymphocytes (%) (Auto)2019-03-15 02:16:00 * Test Item Value Reference Range Interpretation Comments Lymphocytes (%) (Auto) (test code = 736-9) 20.1 18.0-39.1 [facility]Monocytes (%) (Auto)2019-03-15 02:16:00* Test Item Value Reference Range Interpretation Comments Monocytes (%) (Auto) (test code = 5905-5) 3.8 4.4-11.3 L [facility]Eosinophils (%) (Auto)2019-03-15 02:16:00 * Test Item Value Reference Range Interpretation Comments Eosinophils (%) (Auto) (test code = 713-8) 1.8 0.0-6.0 [facility]Basophils (%) (Auto)2019-03-15 02:16:00* Test Item Value Reference Range Interpretation Comments Basophils (%) (Auto) (test code = 706-2) 0.9 0.0-1.0 [facility]HealthIM GRANULOCYTES %2019-03-15 02:16:00* Test Item Value Reference Range Interpretation Comments IM GRANULOCYTES % (test code = IM GRANULOCYTES %) 1.6 0.0- 1.0 H [facility]Neutrophils # (Auto)2019-03-15 02:16:00* Test Item Value Reference Range Interpretation Comments Neutrophils # (Auto) (test code = 751-8) 4.0 2.1-6.9 [facility]Lymphocytes # (Auto)2019-03-15 02:16:00* Test Item Value Reference Range Interpretation Comments Lymphocytes # (Auto) (test code = 96057-4) 1.1 1.0-3.2 [facility]Monocytes # (Auto)2019-03-15 02:16:00* Test Item Value Reference Range Interpretation Comments Monocytes # (Auto) (test code = 742-7) 0.2 0.2-0.8 [facility]Eosinophils # (Auto)2019-03-15 02:16:00* Test Item Value Reference Range Interpretation Comments Eosinophils # (Auto) (test code = 711-2) 0.1 0.0-0.4 [facility]Basophils # (Auto)2019-03-15 02:16:00* Test Item Value Reference Range Interpretation Comments Basophils # (Auto) (test code = 704-7) 0.1 0.0-0.1 [facility]Absolute Immature Granulocyte (auto 2019-03-15 02:16:00* Test Item Value Reference Range Interpretation Comments Absolute Immature Granulocyte (auto (joseph t code = Absolute Immature Granulocyte (auto) 0.09 0-0.1 [facility]Bedside Ayzfuma5337-71-59 05:15:00* Test Item Value Reference Range Interpretation Comments Bedside Glucose (test code = 70637-9) 329 70-120 H Meter ID: [id number] LEFT 2 VIEW 2019-02-24 01:23:00 [facility] [address] [place] [address] Patient Name: KALYANI TALAVERA MR #: [id number] : 1955 Age/Sex: 63/F Req #: [id number] Adm Physician: Ordered by: JACQUES JANE MD Report #: [id number] Location: ER Room/Bed: Procedure: 43 DX/FOREARM LEFT [...] Christiane d By: BRADLEY HARVEY DO on 08/04/19 0124 Transcribed By: JIM on 02/24/19123 COPY TO: JACQUES JANE MD Sodium Ewxuy9396-44-76 00:35:00* Test Item Value Reference Range Interpretation Comments Sodium Level (test code = 2951-2) 135 136-145 L [facility]Potassium Ujinn4227-58-36 00:35:00* Test Item Value Reference Range Interpretation Comments Potassium Level (test code = 2823-3) 4.4 3.5-5.1 [facility]Chloride Lunpg0725-49-09 00:35:00* Test Item Value Reference Range Interpretation Comments Chloride Level (test code = 2075-0) 102 98-107 [facility]Carbon Dioxide Icoya6790-39-07 00:35:00* Test Item Value Reference Range Interpretation Comments Carbon Dioxide Level (test code = 2028-9) 21 22-29 L [facility]Anion Avm7372-90-95 00:35:00* Test Item Value Reference Range Interpretation Comments Anion Gap (test code = 26087-6) 16.4 8-16 H [facility]Blood Urea Xovzpvww3515-80-45 00:35:00* Test Item Value Reference Range Interpretation Comments Blood Urea Nitrogen (test code = 3094-0) 24 7-26 [facility]Creatinine2019-08-04 00:35:00* Test Item Value Reference Range Interpretation Comments Creatinine (test code = 2160-0) 1.44 0.57-1.11 H [facility]HealthBUN/Creatinine Lepen6360-76-37 00:35:00* Test Item Value Reference Range Interpretation Comments BUN/Creatinine Ratio (test code = 3097-3) 17 6-25 [facility]Estimat Glomerular Filtration Rate 2019-02-24 00:35:00* Test Item Value Reference Range Interpretation Comments Estimat Glomerular Filtration Rate (test code = 601313826) 37 >60 L Ranges were taken from the National Kidney Disease Education Program and the [facility] literature.Reference ranges:60 or greater: Nznuvh44-12 ( for 3 consecutive months): Chronic kidney disease 15 or less: Kidney failureAdventHealthGlucose Ntpjy9783-29-92 00:35:00* Test Item Value Reference Range Interpretation Comments Glucose Level (test code = NLM0055) 664 74118 HH Results repeated and called to SHILPA Jack at 0034 on 02/24/19 by Sagar Alegria. Malinda simpson back and verified.[facility]Calcium Level 2019-02-24 00:35:00* Test Item Value Reference Range Interpretation Comments Calcium Level (test code = 98775-0) 9.5 8.4-10.2 [facility]HealthTotal Roirxhrvb4201-74-40 00:35:00* Test Item Value Reference Range Interpretation Comments Total Bilirubin (test code = 1975-2) 0.3 0.2-1.2 [facility]HealthAspartate Amino Transf (AST/SGOT) 2019-02-24 00:35:00* Test Item Value Reference Range Interpretation Comments Aspartate Amino Transf (AST/SGOT) (test code = Aspartate Amino Transf (AST/SGOT)) 12 5-34 [facility]HealthAlanine Aminotransferase (ALT/SGPT) 2019-02-24 00:35:00* Test Item Value Reference Range Interpretation Comments Alanine Aminotransferase (ALT/SGPT) (test code = 1742-6) 23 0-55 [facility]Total Ssbqkzt3495-27-87 00:35:00* Test Item Value Reference Range Interpretation Comments Total Protein (test code = 2885-2) 6.7 6.5-8.1 [facility]Albumin2019-08-04 00:35:00* Test Item Value Reference Range Interpretation Comments Albumin (test code = 1751-7) 3.5 3.5-5.0 [facility]Globulin2019-08-04 00:35:00* Test Item Value Reference Range Interpretation Comments Globulin (test code = 48318-3) 3.2 2.3-3.5 [facility]Albumin/Globulin Pkfft0191-16-80 00:35:00 * Test Item Value Reference Range Interpretation Comments Albumin/Globulin Ratio (test code = 1759-0) 1.1 0.8-2.0 [facility]HealthAlkaline Ogapgyfcyxy7580-35-87 00:35:00* Test Item Value Reference Range Interpretation Comments Alkaline Phosphatase (test code = 6768-6) 82 40-150 [facility] Dpwbiqlvn5028-58-74 00:35:00* Test Item Value Reference Range Interpretation Comments Total Bilirubin (test code = 1975-2) 0.3 0.2-1.2 [facility]art[facility] Amino Transf (AST/SGOT) 2019-02-24 00:35:00* Test Item Value Reference Range Interpretation Comments Aspartate Amino Transf (AST/SGOT) (test code = Aspartate Amino Transf (AST/SGOT)) 12 5-34 [facility]Al[facility] Aminotransferase (ALT/SGPT) 2019-02-24 00:35:00* Test Item Value Reference Range Interpretation Comments Alanine Aminotransferase (ALT/SGPT) (test code = 1742-6) 23 0-55 [facility] Tfqezud3531-40-85 00:35:00* Test Item Value Reference Range Interpretation Comments Total Protein (test code = 2885-2) 6.7 6.5-8.1 [facility]in2019-[facility] 00:35:00* Test Item Value Reference Range Interpretation Comments Albumin (test code = 1751-7) 3.5 3.5-5.0 [facility]ulin2019-08-04 00:35:00* Test Item Value Reference Range Interpretation Comments Globulin (test code = 14670-6) 3.2 2.3-3.5 [facility]in/Globulin Ynwiy1647-83-08 00:35:00 * Test Item Value Reference Range Interpretation Comments Albumin/Globulin Ratio (test code = 1759-0) 1.1 0.8-2.0 [facility] Gshpnqzaupq4032-69-59 00:35:00* Test Item Value Reference Range Interpretation Comments Alkaline Phosphatase (test code = 6768-6) 82 40-150 [facility] Oxttawgfj9499-31-02 00:35:00* Test Item Value Reference Range Interpretation Comments Total Bilirubin (test code = 1975-2) 0.3 0.2-1.2 [facility]o Transf (AST/SGOT) 2019-02-24 00:35:00* Test Item Value Reference Range Interpretation Comments Aspartate Amino Transf (AST/SGOT) (test code = Aspartate Amino Transf (AST/SGOT)) 12 5-34 [facility] Aminotransferase (ALT/SGPT) 2019-02-24 00:35:00* Test Item Value Reference Range Interpretation Comments Alanine Aminotransferase (ALT/SGPT) (test code = 1742-6) 23 0-55 [facility] Kusfwbx0109-54-67 00:35:00* Test Item Value Reference Range Interpretation Comments Total Protein (test code = 2885-2) 6.7 6.5-8.1 [facility]2019-08-[facility] 00:35:00* Test Item Value Reference Range Interpretation Comments Albumin (test code = 1751-7) 3.5 3.5-5.0 [facility]ulin2019-08-04 00:35:00* Test Item Value Reference Range Interpretation Comments Globulin (test code = 61423-5) 3.2 2.3-3.5 [facility]/Globulin Enfnz2869-41-31 00:35:00 * Test Item Value Reference Range Interpretation Comments Albumin/Globulin Ratio (test code = 1759-0) 1.1 0.8-2.0 [facility] Zittoqbogaf6502-88-13 00:35:00* Test Item Value Reference Range Interpretation Comments Alkaline Phosphatase (test code = 6768-6) 82 40-150 [facility] Wrpydbwym7823-99-20 00:35:00* Test Item Value Reference Range Interpretation Comments Total Bilirubin (test code = 1975-2) 0.3 0.2-1.2 [facility]o Transf (AST/SGOT) 2019-02-24 00:35:00* Test Item Value Reference Range Interpretation Comments Aspartate Amino Transf (AST/SGOT) (test code = Aspartate Amino Transf (AST/SGOT)) [facility] Aminotransferase (ALT/SGPT) 2019-02-24 00:35:00* Test Item Value Reference Range Interpretation Comments Alanine Aminotransferase (ALT/SGPT) (test code = 1742-6) 23 0-55 [facility] Asnnbap1267-99-10 00:35:00* Test Item Value Reference Range Interpretation Comments Total Protein (test code = 2885-2) 6.7 6.5-8.1 [facility]in2019-08-04 00:35:00* Test Item Value Reference Range Interpretation Comments Albumin (test code = 1751-7) 3.5 3.5-5.0 [facility]2019-08-04 00:35:00* Test Item Value Reference Range Interpretation Comments Globulin (test code = 87502-5) 3.2 2.3-3.5 [facility]Globulin Gsakq1645-52-22 00:35:00 * Test Item Value Reference Range Interpretation Comments Albumin/Globulin Ratio (test code = 1759-0) 1.1 0.8-2.0 [facility] Tkqyyrmwwxj7466-85-69 00:35:00* Test Item Value Reference Range Interpretation Comments Alkaline Phosphatase (test code = 6768-6) 82 40-150 [facility] Bncnnskbk4616-90-54 00:35:00* Test Item Value Reference Range Interpretation Comments Total Bilirubin (test code = 1975-2) 0.3 0.2-1.2 [facility]o Transf (AST/SGOT) 2019-02-24 00:35:00* Test Item Value Reference Range Interpretation Comments Aspartate Amino Transf (AST/SGOT) (test code = Aspartate Amino Transf (AST/SGOT)) [facility] Aminotransferase (ALT/SGPT) 2019-02-24 00:35:00* Test Item Value Reference Range Interpretation Comments Alanine Aminotransferase (ALT/SGPT) (test code = 1742-6) 23 0-55 [facility] Npmtjyy9276-38-95 00:35:00* Test Item Value Reference Range Interpretation Comments Total Protein (test code = 2885-2) 6.7 6.5-8.1 [facility]2019-08-04 00:35:00* Test Item Value Reference Range Interpretation Comments Albumin (test code = 1751-7) 3.5 3.5-5.0 [facility]2019-08-04 00:35:00* Test Item Value Reference Range Interpretation Comments Globulin (test code = 59910-9) 3.2 2.3-3.5 [facility]in/Globulin Etoxi3099-56-54 00:35:00 * Test Item Value Reference Range Interpretation Comments Albumin/Globulin Ratio (test code = 1759-0) 1.1 0.8-2.0 [facility] Saxtjvpfrrg9511-07-21 00:35:00* Test Item Value Reference Range Interpretation Comments Alkaline Phosphatase (test code = 6768-6) 82 40-150 [facility] Blood Pdhwt2960-04-36 00:18:00* Test Item Value Reference Range Interpretation Comments White Blood Count (test code = 6690-2) 5.09 4.8-10.8 [facility] Blood Jqrgy5016-72-52 00:18:00* Test Item Value Reference Range Interpretation Comments Red Blood Count (test code = 789-8) 4.64 3.6-5.1 [facility]emoglobin2019-08-04 00:18:00* Test Item Value Reference Range Interpretation Comments Hemoglobin (test code = 16975-2) 11.8 12.0-16.0 L [facility]Hematocrit2019-08-04 00:18:00* Test Item Value Reference Range Interpretation Comments Hematocrit (test code = 4544-3) 37.6 34.2-44.1 [facility] Corpuscular Mynroi6879-35-92 00:18:00* Test Item Value Reference Range Interpretation Comments Mean Corpuscular Volume (test code = 787-2) 81.0 81-99 [facility] Corpuscular Wbitpjmkmi5506-99-39 00:18:00* Test Item Value Reference Range Interpretation Comments Mean Corpuscular Hemoglobin (test code = 785-6) 25.4 28-32 L [facility] Corpuscular Hemoglobin Concent 2019-02-24 00:18:00* Test Item Value Reference Range Interpretation Comments Mean Corpuscular Hemoglobin Concent (test code = 786-4) 31.4 31-35 [facility] Cell Distribution Dhlik6113-86-04 00:18:00* Test Item Value Reference Range Interpretation Comments Red Cell Distribution Width (test code = 17075-1) 15.5 11.7 -14.4 H [facility]atelet Rxgwt5081-25-30 00:18:00* Test Item Value Reference Range Interpretation Comments Platelet Count (test code = 777-3) 155 140-360 [facility]Neutrophils (%) (Auto)2019-02-24 00:18:00 * Test Item Value Reference Range Interpretation Comments Neutrophils (%) (Auto) (test code = 10347-7) 69.6 38.7-80.0 [facility]Lymphocytes (%) (Auto)2019-02-24 00:18:00 * Test Item Value Reference Range Interpretation Comments Lymphocytes (%) (Auto) (test code = 736-9) 20.0 18.0-39.1 [facility]Monocytes (%) (Auto)2019-02-24 00:18:00* Test Item Value Reference Range Interpretation Comments Monocytes (%) (Auto) (test code = 5905-5) 5.1 4.4-11.3 [facility]Eosinophils (%) (Auto)2019-02-24 00:18:00 * Test Item Value Reference Range Interpretation Comments Eosinophils (%) (Auto) (test code = 713-8) 3.3 0.0-6.0 [facility]ophils (%) (Auto)2019-02-24 00:18:00* Test Item Value Reference Range Interpretation Comments Basophils (%) (Auto) (test code = 706-2) 1.0 0.0-1.0 [facility] GRANULOCYTES %2019-02-24 00:18:00* Test Item Value Reference Range Interpretation Comments IM GRANULOCYTES % (test code = IM GRANULOCYTES %) 1.0 0.0- 1.0 [facility]utrophils # (Auto)2019-02-24 00:18:00* Test Item Value Reference Range Interpretation Comments Neutrophils # (Auto) (test code = 751-8) 3.5 2.1-6.9 [facility]Lymphocytes # (Auto)2019-02-24 00:18:00* Test Item Value Reference Range Interpretation Comments Lymphocytes # (Auto) (test code = 49310-1) 1.0 1.0-3.2 [facility]ocytes # (Auto)2019-02-24 00:18:00* Test Item Value Reference Range Interpretation Comments Monocytes # (Auto) (test code = 742-7) 0.3 0.2-0.8 [facility]osinophils # (Auto)2019-02-24 00:18:00* Test Item Value Reference Range Interpretation Comments Eosinophils # (Auto) (test code = 711-2) 0.2 0.0-0.4 [facility]ophils # (Auto)2019-02-24 00:18:00* Test Item Value Reference Range Interpretation Comments Basophils # (Auto) (test code = 704-7) 0.1 0.0-0.1 [facility] Immature Granulocyte (auto 2019-02-24 00:18:00* Test Item Value Reference Range Interpretation Comments Absolute Immature Granulocyte (auto (joseph t code = Absolute Immature Granulocyte (auto) 0.05 0-0.1 [facility]side Xfwgnyi6682-90-49 12:27:00* Test Item Value Reference Range Interpretation Comments Bedside Glucose (test code = 52204-5) 302 70-120 H Meter ID: [id number] 2019-01-21 06:25:00* Test Item Value Reference Range Interpretation Comments Sodium Level (test code = 2951-2) 137 136-145 [facility]Potassium Ivnej5916-67-64 06:25:00* Test Item Value Reference Range Interpretation Comments Potassium Level (test code = 2823-3) 4.8 3.5-5.1 [facility]Chloride Qcwkx9797-97-27 06:25:00* Test Item Value Reference Range Interpretation Comments Chloride Level (test code = 2075-0) 101 98-107 [facility]Carbon Dioxide Tvgyv4229-34-06 06:25:00* Test Item Value Reference Range Interpretation Comments Carbon Dioxide Level (test code = 2028-9) 29 22-29 [facility]Anion Pup4070-18-91 06:25:00* Test Item Value Reference Range Interpretation Comments Anion Gap (test code = 74763-5) 11.8 8-16 [facility]Blood Urea Uaweblnk8031-46-37 06:25:00* Test Item Value Reference Range Interpretation Comments Blood Urea Nitrogen (test code = 3094-0) 17 7-26 [facility]Creatinine2019-07-01 06:25:00* Test Item Value Reference Range Interpretation Comments Creatinine (test code = 2160-0) 0.98 0.57-1.11 [facility]HealthBUN/Creatinine Aiuox5811-46-82 06:25:00* Test Item Value Reference Range Interpretation Comments BUN/Creatinine Ratio (test code = 3097-3) 17 6-25 [facility]Estimat Glomerular Filtration Rate 2019-01-21 06:25:00* Test Item Value Reference Range Interpretation Comments Estimat Glomerular Filtration Rate (test code = 894720490) 58 >60 L Ranges were taken from the National Kidney Disease Education Program and the [facility] literature.Reference ranges:60 or greater: Iforoj60-47 ( for 3 consecutive months): Chronic kidney disease 15 or less: Kidney failureAdventHealthGlucose Bvijn3847-74-03 06:25:00* Test Item Value Reference Range Interpretation Comments Glucose Level (test code = SRA9860) 252 74-118 H [facility]Calcium Xkueq5856-85-22 06:25:00* Test Item Value Reference Range Interpretation Comments Calcium Level (test code = 95612-9) 9.2 8.4-10.2 [facility] Twxgvydbd2442-22-48 06:25:00* Test Item Value Reference Range Interpretation Comments Total Bilirubin (test code = 1975-2) 0.2 0.2-1.2 [facility]Aspartate Amino Transf (AST/SGOT) 2019-01-21 06:25:00* Test Item Value Reference Range Interpretation Comments Aspartate Amino Transf (AST/SGOT) (test code = Aspartate Amino Transf (AST/SGOT)) 13 5-34 [facility]Alanine Aminotransferase (ALT/SGPT) 2019-01-21 06:25:00* Test Item Value Reference Range Interpretation Comments Alanine Aminotransferase (ALT/SGPT) (test code = 1742-6) 17 0-55 [facility] Gqnostg1310-26-33 06:25:00* Test Item Value Reference Range Interpretation Comments Total Protein (test code = 2885-2) 6.3 6.5-8.1 L [facility]Albumin2019-07-01 06:25:00* Test Item Value Reference Range Interpretation Comments Albumin (test code = 1751-7) 3.2 3.5-5.0 L [facility]Globulin2019-07-01 06:25:00* Test Item Value Reference Range Interpretation Comments Globulin (test code = 99507-5) 3.1 2.3-3.5 [facility]Albumin/Globulin Eknag3070-96-65 06:25:00 * Test Item Value Reference Range Interpretation Comments Albumin/Globulin Ratio (test code = 1759-0) 1.0 0.8-2.0 [facility]Alkaline Wmayryyjnvw8231-15-15 06:25:00* Test Item Value Reference Range Interpretation Comments Alkaline Phosphatase (test code = 6768-6) 78 40-150 [facility] Blood Fcovy1378-36-98 06:21:00* Test Item Value Reference Range Interpretation Comments White Blood Count (test code = 6690-2) 4.81 4.8-10.8 [facility] Blood Dgjmt7928-30-94 06:21:00* Test Item Value Reference Range Interpretation Comments Red Blood Count (test code = 789-8) 4.90 3.6-5.1 [facility]Hemoglobin2019-07-01 06:21:00* Test Item Value Reference Range Interpretation Comments Hemoglobin (test code = 90551-8) 12.0 12.0-16.0 [facility]Hematocrit2019-07-01 06:21:00* Test Item Value Reference Range Interpretation Comments Hematocrit (test code = 4544-3) 39.4 34.2-44.1 [facility] Corpuscular Uyuffh4817-79-58 06:21:00* Test Item Value Reference Range Interpretation Comments Mean Corpuscular Volume (test code = 787-2) 80.4 81-99 L [facility] Corpuscular Yqmqijaxib6776-04-69 06:21:00* Test Item Value Reference Range Interpretation Comments Mean Corpuscular Hemoglobin (test code = 785-6) 24.5 28-32 L [facility] Corpuscular Hemoglobin Concent 2019-01-21 06:21:00* Test Item Value Reference Range Interpretation Comments Mean Corpuscular Hemoglobin Concent (test code = 786-4) 30.5 31-35 L [facility]Red Cell Distribution Pvhwt8806-08-09 06:21:00* Test Item Value Reference Range Interpretation Comments Red Cell Distribution Width (test code = 32298-0) 14.6 11.7 -14.4 H [facility]atelet Rwngu5429-00-07 06:21:00* Test Item Value Reference Range Interpretation Comments Platelet Count (test code = 777-3) 157 140-360 [facility]Neutrophils (%) (Auto)2019-01-21 06:21:00 * Test Item Value Reference Range Interpretation Comments Neutrophils (%) (Auto) (test code = 06622-8) 62.2 38.7-80.0 [facility]Lymphocytes (%) (Auto)2019-01-21 06:21:00 * Test Item Value Reference Range Interpretation Comments Lymphocytes (%) (Auto) (test code = 736-9) 25.8 18.0-39.1 [facility]Monocytes (%) (Auto)2019-01-21 06:21:00* Test Item Value Reference Range Interpretation Comments Monocytes (%) (Auto) (test code = 5905-5) 5.8 4.4-11.3 [facility]Eosinophils (%) (Auto)2019-01-21 06:21:00 * Test Item Value Reference Range Interpretation Comments Eosinophils (%) (Auto) (test code = 713-8) 5.0 0.0-6.0 [facility]Basophils (%) (Auto)2019-01-21 06:21:00* Test Item Value Reference Range Interpretation Comments Basophils (%) (Auto) (test code = 706-2) 0.6 0.0-1.0 [facility]IM GRANULOCYTES %2019-01-21 06:21:00* Test Item Value Reference Range Interpretation Comments IM GRANULOCYTES % (test code = IM GRANULOCYTES %) 0.6 0.0- 1.0 [facility]Neutrophils # (Auto)2019-01-21 06:21:00* Test Item Value Reference Range Interpretation Comments Neutrophils # (Auto) (test code = 751-8) 3.0 2.1-6.9 [facility]Lymphocytes # (Auto)2019-01-21 06:21:00* Test Item Value Reference Range Interpretation Comments Lymphocytes # (Auto) (test code = 66220-1) 1.2 1.0-3.2 [facility]ocytes # (Auto)2019-01-21 06:21:00* Test Item Value Reference Range Interpretation Comments Monocytes # (Auto) (test code = 742-7) 0.3 0.2-0.8 [facility]Eosinophils # (Auto)2019-01-21 06:21:00* Test Item Value Reference Range Interpretation Comments Eosinophils # (Auto) (test code = 711-2) 0.2 0.0-0.4 [facility]ophils # (Auto)2019-01-21 06:21:00* Test Item Value Reference Range Interpretation Comments Basophils # (Auto) (test code = 704-7) 0.0 0.0-0.1 [facility] Immature Granulocyte (auto 2019-01-21 06:21:00* Test Item Value Reference Range Interpretation Comments Absolute Immature Granulocyte (auto (joseph t code = Absolute Immature Granulocyte (auto) 0.03 0-0.1 [facility]Cholesterol Aqtrr9550-80-93 15:27:00* Test Item Value Reference Range Interpretation Comments Cholesterol Level (test code = 2093-3) 171 0-199 Less than 200 mg/dL Low Qbyw728 - 239 mg/dL Borderline Uhrr529 m g/dl and greater High Risk [facility]LDL Repywykwqhs4932-06-23 15:27:00* Test Item Value Reference Range Interpretation Comments LDL Cholesterol (test code = 2089-1) 103 60-130 [facility]HDL Wmmyiwriljz3462-11-05 15:27:00* Test Item Value Reference Range Interpretation Comments HDL Cholesterol (test code = 2085-9) 30 40-60 L [facility]Cholesterol/HDL Maqdb2925-19-65 15:27:00 * Test Item Value Reference Range Interpretation Comments Cholesterol/HDL Ratio (test code = 9830-1) 5.7 3.0-3.6 H [facility] Nxncw5825-59-53 15:27:00* Test Item Value Reference Range Interpretation Comments Cholesterol Level (test code = 2093-3) 171 0-199 Less than 200 mg/dL Low Yqjh454 - 239 mg/dL Borderline Wuvq471 m g/dl and greater High Risk [facility]LDL Uzkauhbacif0721-94-83 15:27:00* Test Item Value Reference Range Interpretation Comments LDL Cholesterol (test code = 2089-1) 103 60-130 [facility] Offjoypnaud8353-26-74 15:27:00* Test Item Value Reference Range Interpretation Comments HDL Cholesterol (test code = 2085-9) 30 40-60 L [facility]/HDL Wmjly5787-47-55 15:27:00 * Test Item Value Reference Range Interpretation Comments Cholesterol/HDL Ratio (test code = 9830-1) 5.7 3.0-3.6 H [facility] Idaib9320-54-93 15:27:00* Test Item Value Reference Range Interpretation Comments Cholesterol Level (test code = 2093-3) 171 0-199 Less than 200 mg/dL Low Rcgq986 - 239 mg/dL Borderline Gmug353 m g/dl and greater High Risk [facility] Xgptsmxftni0187-54-83 15:27:00* Test Item Value Reference Range Interpretation Comments LDL Cholesterol (test code = 2089-1) 103 60-130 [facility] Pmlrsntdyja4638-84-54 15:27:00* Test Item Value Reference Range Interpretation Comments HDL Cholesterol (test code = 2085-9) 30 40-60 L [facility]Ch[facility]/HDL Eeijc8456-33-81 15:27:00 * Test Item Value Reference Range Interpretation Comments Cholesterol/HDL Ratio (test code = 9830-1) 5.7 3.0-3.6 H [facility] Gxulg4389-39-22 15:27:00* Test Item Value Reference Range Interpretation Comments Cholesterol Level (test code = 2093-3) 171 0-199 Less than 200 mg/dL Low Osfl748 - 239 mg/dL Borderline Cquo933 m g/dl and greater High Risk [facility]LDL Vfckszbyrnj8675-41-07 15:27:00* Test Item Value Reference Range Interpretation Comments LDL Cholesterol (test code = 2089-1) 103 60-130 [facility] Iqlmvdfobcz0213-02-21 15:27:00* Test Item Value Reference Range Interpretation Comments HDL Cholesterol (test code = 2085-9) 30 40-60 L [facility]/HDL Dlzmq1207-49-87 15:27:00 * Test Item Value Reference Range Interpretation Comments Cholesterol/HDL Ratio (test code = 9830-1) 5.7 3.0-3.6 H [facility] Udfmt5476-39-57 15:27:00* Test Item Value Reference Range Interpretation Comments Cholesterol Level (test code = 3-3) 171 0-199 Less than 200 mg/dL Low Liys159 - 239 mg/dL Borderline Yvxg560 m g/dl and greater High Risk [facility] Qdgdnjuciri6270-05-71 15:27:00* Test Item Value Reference Range Interpretation Comments LDL Cholesterol (test code = 2089-1) 103 60-130 [facility] Pbsypwpfets5455-51-12 15:27:00* Test Item Value Reference Range Interpretation Comments HDL Cholesterol (test code = 2085-9) 30 40-60 L [facility]Ch[facility]/HDL Swkku8472-73-53 15:27:00 * Test Item Value Reference Range Interpretation Comments Cholesterol/HDL Ratio (test code = 9830-1) 5.7 3.0-3.6 H [facility] Ayvmt0611-55-62 15:27:00* Test Item Value Reference Range Interpretation Comments Cholesterol Level (test code = 3-3) 171 0-199 Less than 200 mg/dL Low Qmdz830 - 239 mg/dL Borderline Saxz723 m g/dl and greater High Risk [facility]LDL Nhoueaaanum4561-77-93 15:27:00* Test Item Value Reference Range Interpretation Comments LDL Cholesterol (test code = 2089-1) 103 60-130 [facility] Zamvxpilsop9058-27-30 15:27:00* Test Item Value Reference Range Interpretation Comments HDL Cholesterol (test code = 2085-9) 30 40-60 L [facility]Cholesterol/HDL Tixuo8610-68-22 15:27:00 * Test Item Value Reference Range Interpretation Comments Cholesterol/HDL Ratio (test code = 9830-1) 5.7 3.0-3.6 H [facility]Triglycerides Swhia6620-67-68 13:34:00* Test Item Value Reference Range Interpretation Comments Triglycerides Level (test code = 2571-8) 190 0-149 H [facility]Triglycerides Nawmy7537-99-07 13:34:00* Test Item Value Reference Range Interpretation Comments Triglycerides Level (test code = 2571-8) 190 0-149 H [facility]Triglycerides Tqiyc8432-31-28 13:34:00* Test Item Value Reference Range Interpretation Comments Triglycerides Level (test code = 2571-8) 190 0-149 H [facility] Hnaak1833-24-31 13:34:00* Test Item Value Reference Range Interpretation Comments Triglycerides Level (test code = 2571-8) 190 0-149 H [facility]Triglycerides Mdqwa8323-52-47 13:34:00* Test Item Value Reference Range Interpretation Comments Triglycerides Level (test code = 2571-8) 190 0-149 H [facility]Triglycerides Hbikh9900-17-28 13:34:00* Test Item Value Reference Range Interpretation Comments Triglycerides Level (test code = 2571-8) 190 0-149 H [facility] Occult Prfmo3597-47-38 09:04:00* Test Item Value Reference Range Interpretation Comments Stool Occult Blood (test code = 2335-8) POSITIVE NEGATIVE [facility] Occult Zcren0823-51-39 09:04:00* Test Item Value Reference Range Interpretation Comments Stool Occult Blood (test code = 2335-8) POSITIVE NEGATIVE [facility] Occult Mnxbn2650-98-09 09:04:00* Test Item Value Reference Range Interpretation Comments Stool Occult Blood (test code = 2335-8) POSITIVE NEGATIVE [facility] Occult Pvttu0405-38-90 09:04:00* Test Item Value Reference Range Interpretation Comments Stool Occult Blood (test code = 2335-8) POSITIVE NEGATIVE [facility] Occult Psctc6662-06-72 09:04:00* Test Item Value Reference Range Interpretation Comments Stool Occult Blood (test code = 2335-8) POSITIVE NEGATIVE [facility] Occult Iqqgl9072-34-79 09:04:00* Test Item Value Reference Range Interpretation Comments Stool Occult Blood (test code = 2335-8) [facility]18 06:48:00* Test Item Value Reference Range Interpretation Comments Thyroid Stimulating Hormone (TSH) (test code = 79887-3) 0.428 0.350-4.940 [facility]Thyroid [facility]ulating [facility]ormone (TSH) 2019-01-18 06:48:00* Test Item Value Reference Range Interpretation Comments Thyroid Stimulating Hormone (TSH) (test code = 98943-3) 0.428 0.350-4.940 [facility]Th[facility] Stimulating [facility]ormone (TSH) 2019-01-18 06:48:00* Test Item Value Reference Range Interpretation Comments Thyroid Stimulating Hormone (TSH) (test code = 73574-4) 0.428 0.350-4.940 [facility]Th[facility]one (TSH) 2019-01-18 06:48:00* Test Item Value Reference Range Interpretation Comments Thyroid Stimulating Hormone (TSH) (test code = 06676-9) 0.428 0.350-4.940 [facility]Thyroid Stimulating Hormone (TSH) 2019-01-18 06:48:00* Test Item Value Reference Range Interpretation Comments Thyroid Stimulating Hormone (TSH) (test code = 02689-2) 0.428 0.350-4.940 [facility]Thyroid Stimulating Hormone (TSH) 2019-01-18 06:48:00* Test Item Value Reference Range Interpretation Comments Thyroid Stimulating Hormone (TSH) (test code = 67922-9) 0.428 0.350-4.940 [facility]Free Nmtbnqulz1918-71-56 15:32:00* Test Item Value Reference Range Interpretation Comments Free Thyroxine (test code = 3024-7) 1.05 0.8-1.8 [facility] Fyxejwddw9434-40-42 15:32:00* Test Item Value Reference Range Interpretation Comments Free Thyroxine (test code = 3024-7) 1.05 0.8-1.8 [facility] Loucgxcxm6443-66-32 15:32:00* Test Item Value Reference Range Interpretation Comments Free Thyroxine (test code = 3024-7) 1.05 0.8-1.8 [facility] Nihsuohsp8332-22-68 15:32:00* Test Item Value Reference Range Interpretation Comments Free Thyroxine (test code = 3024-7) 1.05 0.8-1.8 [facility] Ujnihkieo8700-86-98 15:32:00* Test Item Value Reference Range Interpretation Comments Free Thyroxine (test code = 3024-7) 1.05 0.8-1.8 [facility] Lqvchicne9309-01-13 15:32:00* Test Item Value Reference Range Interpretation Comments Free Thyroxine (test code = 3024-7) 1.05 0.8-1.8 [facility] Ueoiij0396-74-72 14:58:00* Test Item Value Reference Range Interpretation Comments Creatine Kinase (test code = 2157-6) 23 29-168 L [facility] LB7052-45-44 14:58:00* Test Item Value Reference Range Interpretation Comments Creatine Kinase MB (test code = 63967-8) 0.60 0-5.0 [facility] B3232-93-23 14:58:00* Test Item Value Reference Range Interpretation Comments Troponin I (test code = UAC6942) < 0.001 0-0.300 [facility] Eplkkv8546-04-16 14:58:00* Test Item Value Reference Range Interpretation Comments Creatine Kinase (test code = 2157-6) 23 29-168 L [facility] Kinase WI5570-69-60 14:58:00* Test Item Value Reference Range Interpretation Comments Creatine Kinase MB (test code = 36618-7) 0.60 0-5.0 [place] 19022019-06-27 14:58:00* Test Item Value Reference Range Interpretation Comments Troponin I (test code = FPY4903) < 0.001 0-0.300 [facility] Btcfcb3274-35-47 14:58:00* Test Item Value Reference Range Interpretation Comments Creatine Kinase (test code = 2157-6) 23 29-168 L [facility] XP8414-56-24 14:58:00* Test Item Value Reference Range Interpretation Comments Creatine Kinase MB (test code = 43333-9) 0.60 0-5.0 [place] 19022019-06-27 14:58:00* Test Item Value Reference Range Interpretation Comments Troponin I (test code = TPJ6628) < 0.001 0-0.300 [facility] Fuwisw2650-28-63 14:58:00* Test Item Value Reference Range Interpretation Comments Creatine Kinase (test code = 2157-6) 23 29-168 L [facility] DP4968-04-26 14:58:00* Test Item Value Reference Range Interpretation Comments Creatine Kinase MB (test code = 99779-8) 0.60 0-5.0 [place] 19022019-06-27 14:58:00* Test Item Value Reference Range Interpretation Comments Troponin I (test code = ZWL4934) < 0.001 0-0.300 [facility] Lzhtwd8880-29-39 14:58:00* Test Item Value Reference Range Interpretation Comments Creatine Kinase (test code = 2157-6) 23 29-168 L [facility] TZ2595-30-04 14:58:00* Test Item Value Reference Range Interpretation Comments Creatine Kinase MB (test code = 06758-8) 0.60 0-5.0 [facility]:58[facility]* Test Item Value Reference Range Interpretation Comments Troponin I (test code = ZUH5085) < 0.001 0-0.300 [facility] Vjlznd6195-91-08 14:58:00* Test Item Value Reference Range Interpretation Comments Creatine Kinase (test code = 2157-6) 23 29-168 L [facility] ZB3609-24-47 14:58:00* Test Item Value Reference Range Interpretation Comments Creatine Kinase MB (test code = 43511-4) 0.60 0-5.0 [facility] Y1793-40-85 14:58:00* Test Item Value Reference Range Interpretation Comments Troponin I (test code = ZVY9594) < 0.001 0-0.300 [facility] Oizccio8358-69-67 14:27:00 * Test Item Value Reference Range Interpretation Comments Hemoglobin A1c Percent (test code = Hemoglobin A1c Percent) 11.6 4.0-7.0 H [facility] Trkaslj8874-60-20 14:27:00 * Test Item Value Reference Range Interpretation Comments Hemoglobin A1c Percent (test code = Hemoglobin A1c Percent) 11.6 4.0-7.0 H [facility] Yfrqkvm7585-38-40 14:27:00 * Test Item Value Reference Range Interpretation Comments Hemoglobin A1c Percent (test code = Hemoglobin A1c Percent) 11.6 4.0-7.0 H [facility] Qwfquak4617-08-73 14:27:00 * Test Item Value Reference Range Interpretation Comments Hemoglobin A1c Percent (test code = Hemoglobin A1c Percent) 11.6 4.0-7.0 H [facility] Uegdcyq7224-25-81 14:27:00 * Test Item Value Reference Range Interpretation Comments Hemoglobin A1c Percent (test code = Hemoglobin A1c Percent) 11.6 4.0-7.0 H [facility] Etfbzve4966-79-81 14:27:00 * Test Item Value Reference Range Interpretation Comments Hemoglobin A1c Percent (test code = Hemoglobin A1c Percent) 11.6 4.0-7.0 H [facility] Dnphmxu1882-82-18 06:11:00* Test Item Value Reference Range Interpretation Comments B-Type Natriuretic Peptide (test code = 14376-7) 14.3 0-100 [facility] Hqwfcjo1723-56-31 06:11:00* Test Item Value Reference Range Interpretation Comments B-Type Natriuretic Peptide (test code = 41508-7) 14.3 0-100 [facility] Lsfmhap9883-96-20 06:11:00* Test Item Value Reference Range Interpretation Comments B-Type Natriuretic Peptide (test code = 19335-7) 14.3 0-100 [facility] Pdldxud6216-19-94 06:11:00* Test Item Value Reference Range Interpretation Comments B-Type Natriuretic Peptide (test code = 94004-2) 14.3 0-100 [facility] Qzegawy0198-51-10 06:11:00* Test Item Value Reference Range Interpretation Comments B-Type Natriuretic Peptide (test code = 82284-4) 14.3 0-100 [facility] Jzlntqa7941-86-06 06:11:00* Test Item Value Reference Range Interpretation Comments B-Type Natriuretic Peptide (test code = 05012-2) 14.3 0-100 [facility] MXW1940-25-92 21:13:00* Test Item Value Reference Range Interpretation Comments Urine WBC (test code = 5821-4) NONE 0-5 [facility] XVH6283-12-22 21:13:00* Test Item Value Reference Range Interpretation Comments Urine RBC (test code = 59277-8) NONE 0-5 [facility] Gtbwzxcq0259-79-11 21:13:00* Test Item Value Reference Range Interpretation Comments Urine Bacteria (test code = 47912-8) FEW NONE [facility] Jgjyy9175-43-27 21:13:00 * Test Item Value Reference Range Interpretation Comments Urine Epithelial Cells (test code = 89948-8) MANY NONE [facility] SIA9850-57-28 21:13:00* Test Item Value Reference Range Interpretation Comments Urine WBC (test code = 5821-4) NONE 0-5 [facility] ZSX7821-68-65 21:13:00* Test Item Value Reference Range Interpretation Comments Urine RBC (test code = 94730-2) NONE 0-5 [facility] Uugdwawx0298-61-05 21:13:00* Test Item Value Reference Range Interpretation Comments Urine Bacteria (test code = 41809-1) FEW NONE [facility] Pjpvn9984-67-16 21:13:00 * Test Item Value Reference Range Interpretation Comments Urine Epithelial Cells (test code = 18301-9) MANY NONE [facility] QVV2340-11-30 21:13:00* Test Item Value Reference Range Interpretation Comments Urine WBC (test code = 5821-4) NONE 0-5 [facility] TZU7489-55-14 21:13:00* Test Item Value Reference Range Interpretation Comments Urine RBC (test code = 16654-4) NONE 0-5 [facility] Hqsjquzi9327-33-19 21:13:00* Test Item Value Reference Range Interpretation Comments Urine Bacteria (test code = 95849-5) FEW NONE [facility] Wbwvi5528-79-01 21:13:00 * Test Item Value Reference Range Interpretation Comments Urine Epithelial Cells (test code = 03279-4) MANY NONE [facility] HKE5877-69-01 21:13:00* Test Item Value Reference Range Interpretation Comments Urine WBC (test code = 5821-4) NONE 0-5 [facility] FAF6040-29-22 21:13:00* Test Item Value Reference Range Interpretation Comments Urine RBC (test code = 99510-9) NONE 0-5 [facility] Sspluxls1138-97-15 21:13:00* Test Item Value Reference Range Interpretation Comments Urine Bacteria (test code = 80148-6) FEW NONE [facility] Bokld7918-62-17 21:13:00 * Test Item Value Reference Range Interpretation Comments Urine Epithelial Cells (test code = 66378-9) MANY NONE [facility] QOS2720-55-15 21:13:00* Test Item Value Reference Range Interpretation Comments Urine WBC (test code = 5821-4) NONE 0-5 [facility] QZN1374-90-84 21:13:00* Test Item Value Reference Range Interpretation Comments Urine RBC (test code = 61525-1) NONE 0-5 [facility] Gnazzosh9898-66-11 21:13:00* Test Item Value Reference Range Interpretation Comments Urine Bacteria (test code = 33954-7) FEW NONE [facility] Ipfmp4201-44-19 21:13:00 * Test Item Value Reference Range Interpretation Comments Urine Epithelial Cells (test code = 32328-3) MANY NONE [facility] GND8145-15-40 21:13:00* Test Item Value Reference Range Interpretation Comments Urine WBC (test code = 5821-4) NONE 0-5 [facility] DSQ9432-57-86 21:13:00* Test Item Value Reference Range Interpretation Comments Urine RBC (test code = 97375-8) NONE 0-5 [facility] Mbjmfkoi2638-48-02 21:13:00* Test Item Value Reference Range Interpretation Comments Urine Bacteria (test code = 56854-0) FEW NONE [facility]helial Nywai6063-06-22 21:13:00 * Test Item Value Reference Range Interpretation Comments Urine Epithelial Cells (test code = 89134-4) MANY NONE [facility] Ejdxk9120-88-50 21:08:00* Test Item Value Reference Range Interpretation Comments Urine Color (test code = 5778-6) YELLOW YELLOW [facility] Meazinn6414-58-74 21:08:00* Test Item Value Reference Range Interpretation Comments Urine Clarity (test code = 14326-5) CLEAR CLEAR [facility] Specific Mtxioub1454-76-78 21:08:00 * Test Item Value Reference Range Interpretation Comments Urine Specific [place] (test code = 5811-5) <=1.005 1.010-1.02 5 [facility] sW3881-08-51 21:08:00* Test Item Value Reference Range Interpretation Comments Urine pH (test code = 25823-7) 6 5-7 [facility] Leukocyte Dlnsrxkd0449-07-67 21:08:00* Test Item Value Reference Range Interpretation Comments Urine Leukocyte Esterase (test code = 38813-2) NEGATIVE NEGATIV E [facility] Aapozdw4368-74-87 21:08:00* Test Item Value Reference Range Interpretation Comments Urine Nitrite (test code = 02703-7) NEGATIVE NEGATIVE [facility] Yysqrcq5893-88-26 21:08:00* Test Item Value Reference Range Interpretation Comments Urine Protein (test code = 20684-9) NEGATIVE NEGATIVE [facility] Glucose (UA)2019-01-16 21:08:00* Test Item Value Reference Range Interpretation Comments Urine Glucose (UA) (test code = 08526-0) 3+ NEGATIVE [facility] Mvrvhel4487-13-88 21:08:00* Test Item Value Reference Range Interpretation Comments Urine Ketones (test code = 42080-4) NEGATIVE NEGATIVE [facility] Hfcuwbrhvjno8689-29-76 21:08:00* Test Item Value Reference Range Interpretation Comments Urine Urobilinogen (test code = 49411-8) 0.2 0.2-1 [facility] Jtysopjhz4578-79-71 21:08:00* Test Item Value Reference Range Interpretation Comments Urine Bilirubin (test code = 1977-8) NEGATIVE NEGATIVE [facility] Exgju7651-62-30 21:08:00* Test Item Value Reference Range Interpretation Comments Urine Blood (test code = 65448-0) NEGATIVE NEGATIVE [facility] Qjjik1692-24-98 21:08:00* Test Item Value Reference Range Interpretation Comments Urine Color (test code = 5778-6) YELLOW YELLOW [facility] Cbgixky4631-35-90 21:08:00* Test Item Value Reference Range Interpretation Comments Urine Clarity (test code = 38014-1) CLEAR CLEAR [facility] Specific Xtjdqqn8205-29-32 21:08:00 * Test Item Value Reference Range Interpretation Comments Urine Specific [place] (test code = 5811-5) <=1.005 1.010-1.02 5 [facility] qN4508-81-94 21:08:00* Test Item Value Reference Range Interpretation Comments Urine pH (test code = 41951-6) 6 5-7 [facility] Leukocyte Jcbfmeek1923-60-44 21:08:00* Test Item Value Reference Range Interpretation Comments Urine Leukocyte Esterase (test code = 83114-3) NEGATIVE NEGATIV E [facility] Bdfgfqk5401-38-55 21:08:00* Test Item Value Reference Range Interpretation Comments Urine Nitrite (test code = 84805-5) NEGATIVE NEGATIVE [facility] Ivgfudj7403-98-31 21:08:00* Test Item Value Reference Range Interpretation Comments Urine Protein (test code = 47031-5) NEGATIVE NEGATIVE [facility] Glucose (UA)2019-01-16 21:08:00* Test Item Value Reference Range Interpretation Comments Urine Glucose (UA) (test code = 95269-6) 3+ NEGATIVE [facility] Bizrgmp8536-34-51 21:08:00* Test Item Value Reference Range Interpretation Comments Urine Ketones (test code = 74387-3) NEGATIVE NEGATIVE [facility] Vdlowylkrzzj4679-27-57 21:08:00* Test Item Value Reference Range Interpretation Comments Urine Urobilinogen (test code = 72229-8) 0.2 0.2-1 [facility] Hikqhkajb2141-73-76 21:08:00* Test Item Value Reference Range Interpretation Comments Urine Bilirubin (test code = 1977-8) NEGATIVE NEGATIVE [facility] Ufakp1084-27-05 21:08:00* Test Item Value Reference Range Interpretation Comments Urine Blood (test code = 14728-7) NEGATIVE NEGATIVE [facility] Ehtin0232-71-09 21:08:00* Test Item Value Reference Range Interpretation Comments Urine Color (test code = 5778-6) YELLOW YELLOW [facility] Uswkzyk7473-65-63 21:08:00* Test Item Value Reference Range Interpretation Comments Urine Clarity (test code = 91914-6) CLEAR CLEAR [facility] Specific Szjvrdh1872-52-14 21:08:00 * Test Item Value Reference Range Interpretation Comments Urine Specific [place] (test code = 5811-5) <=1.005 1.010-1.02 5 [facility] yH2830-30-89 21:08:00* Test Item Value Reference Range Interpretation Comments Urine pH (test code = 75830-0) 6 5-7 [facility] Leukocyte Ggwwbsox1611-61-22 21:08:00* Test Item Value Reference Range Interpretation Comments Urine Leukocyte Esterase (test code = 38342-6) NEGATIVE NEGATIV E [facility] Vczmvef4982-94-05 21:08:00* Test Item Value Reference Range Interpretation Comments Urine Nitrite (test code = 83735-6) NEGATIVE NEGATIVE [facility] Wdzgkmm0122-70-04 21:08:00* Test Item Value Reference Range Interpretation Comments Urine Protein (test code = 04493-0) NEGATIVE NEGATIVE [facility] Glucose (UA)2019-01-16 21:08:00* Test Item Value Reference Range Interpretation Comments Urine Glucose (UA) (test code = 29707-3) 3+ NEGATIVE [facility] Idzmgeg6804-29-45 21:08:00* Test Item Value Reference Range Interpretation Comments Urine Ketones (test code = 30390-8) NEGATIVE NEGATIVE [facility] Rrmwcplpgxhz7707-98-40 21:08:00* Test Item Value Reference Range Interpretation Comments Urine Urobilinogen (test code = 84281-4) 0.2 0.2-1 [facility] Bbblwzgbv5945-21-66 21:08:00* Test Item Value Reference Range Interpretation Comments Urine Bilirubin (test code = 1977-8) NEGATIVE NEGATIVE [facility] Qpgil0367-84-80 21:08:00* Test Item Value Reference Range Interpretation Comments Urine Blood (test code = 22030-5) NEGATIVE NEGATIVE [facility] Ddouv8837-60-90 21:08:00* Test Item Value Reference Range Interpretation Comments Urine Color (test code = 5778-6) YELLOW YELLOW [facility] Ksscoad0816-36-09 21:08:00* Test Item Value Reference Range Interpretation Comments Urine Clarity (test code = 99766-7) CLEAR CLEAR [facility] Specific Arqdnzk5840-33-72 21:08:00 * Test Item Value Reference Range Interpretation Comments Urine Specific [place] (test code = 5811-5) <=1.005 1.010-1.02 5 [facility] xN8532-03-75 21:08:00* Test Item Value Reference Range Interpretation Comments Urine pH (test code = 71928-6) 6 5-7 [facility] Leukocyte Ljitqujr8317-34-40 21:08:00* Test Item Value Reference Range Interpretation Comments Urine Leukocyte Esterase (test code = 05017-9) NEGATIVE NEGATIV E [facility] [place]6411-69-32 21:08:00* Test Item Value Reference Range Interpretation Comments Urine Nitrite (test code = 31017-4) NEGATIVE NEGATIVE [facility] Axyzoyy8175-11-58 21:08:00* Test Item Value Reference Range Interpretation Comments Urine Protein (test code = 39585-7) NEGATIVE NEGATIVE [facility] Glucose (UA)2019-01-16 21:08:00* Test Item Value Reference Range Interpretation Comments Urine Glucose (UA) (test code = 43625-8) 3+ NEGATIVE [facility] Zmaepea9447-83-23 21:08:00* Test Item Value Reference Range Interpretation Comments Urine Ketones (test code = 24642-9) NEGATIVE NEGATIVE [facility] Ebitlsiyoqxg5422-16-48 21:08:00* Test Item Value Reference Range Interpretation Comments Urine Urobilinogen (test code = 26448-7) 0.2 0.2-1 [facility] Yjdwimfru4136-01-39 21:08:00* Test Item Value Reference Range Interpretation Comments Urine Bilirubin (test code = 1977-8) NEGATIVE NEGATIVE [facility] Ytapy2220-05-01 21:08:00* Test Item Value Reference Range Interpretation Comments Urine Blood (test code = 04948-8) NEGATIVE NEGATIVE [facility] Jsmmk3787-31-06 21:08:00* Test Item Value Reference Range Interpretation Comments Urine Color (test code = 5778-6) YELLOW YELLOW [facility] Vnfldtd2134-10-63 21:08:00* Test Item Value Reference Range Interpretation Comments Urine Clarity (test code = 62133-7) CLEAR CLEAR [facility] Specific Dqokymf4389-08-58 21:08:00 * Test Item Value Reference Range Interpretation Comments Urine Specific [place] (test code = 5811-5) <=1.005 1.010-1.02 5 [facility] xL2158-55-39 21:08:00* Test Item Value Reference Range Interpretation Comments Urine pH (test code = 21238-6) 6 5-7 [facility] Leukocyte Dvpwcouo4215-00-43 21:08:00* Test Item Value Reference Range Interpretation Comments Urine Leukocyte Esterase (test code = 21443-7) NEGATIVE NEGATIV E [facility] Xlqbbwi4129-50-58 21:08:00* Test Item Value Reference Range Interpretation Comments Urine Nitrite (test code = 41350-2) NEGATIVE NEGATIVE [facility] Xhwobzy3880-36-20 21:08:00* Test Item Value Reference Range Interpretation Comments Urine Protein (test code = 63099-7) NEGATIVE NEGATIVE [facility] Glucose (UA)2019-01-16 21:08:00* Test Item Value Reference Range Interpretation Comments Urine Glucose (UA) (test code = 43472-6) 3+ NEGATIVE [facility] Tiyouwv5009-65-60 21:08:00* Test Item Value Reference Range Interpretation Comments Urine Ketones (test code = 94528-0) NEGATIVE NEGATIVE [facility] Ovcfnqolbiab8753-67-98 21:08:00* Test Item Value Reference Range Interpretation Comments Urine Urobilinogen (test code = 62638-8) 0.2 0.2-1 [facility] Svyqduyoz5070-55-90 21:08:00* Test Item Value Reference Range Interpretation Comments Urine Bilirubin (test code = 1977-8) NEGATIVE NEGATIVE [facility] Mjafn9374-66-21 21:08:00* Test Item Value Reference Range Interpretation Comments Urine Blood (test code = 08603-5) NEGATIVE NEGATIVE [facility] Btosd4959-85-36 21:08:00* Test Item Value Reference Range Interpretation Comments Urine Color (test code = 5778-6) YELLOW YELLOW [facility] Wsycxgv0325-46-42 21:08:00* Test Item Value Reference Range Interpretation Comments Urine Clarity (test code = 75003-5) CLEAR CLEAR [facility] Specific Zlgynim2834-27-99 21:08:00 * Test Item Value Reference Range Interpretation Comments Urine Specific [place] (test code = 5811-5) <=1.005 1.010-1.02 5 [facility] aB2275-66-95 21:08:00* Test Item Value Reference Range Interpretation Comments Urine pH (test code = 12287-7) 6 5-7 [facility] Leukocyte Kxbdhrna1540-28-97 21:08:00* Test Item Value Reference Range Interpretation Comments Urine Leukocyte Esterase (test code = 70218-5) NEGATIVE NEGATIV E [facility] Wvmpeje4791-55-18 21:08:00* Test Item Value Reference Range Interpretation Comments Urine Nitrite (test code = 95444-5) NEGATIVE NEGATIVE [facility] Gfroljk0916-27-47 21:08:00* Test Item Value Reference Range Interpretation Comments Urine Protein (test code = 61846-3) NEGATIVE NEGATIVE [facility] Glucose (UA)2019-01-16 21:08:00* Test Item Value Reference Range Interpretation Comments Urine Glucose (UA) (test code = 21733-0) 3+ NEGATIVE [facility] Eiwonnq9845-79-31 21:08:00* Test Item Value Reference Range Interpretation Comments Urine Ketones (test code = 69845-2) NEGATIVE NEGATIVE [facility] Szkxpkwefzfd6690-98-81 21:08:00* Test Item Value Reference Range Interpretation Comments Urine Urobilinogen (test code = 96753-7) 0.2 0.2-1 [facility] Leyfzrbua9269-25-11 21:08:00* Test Item Value Reference Range Interpretation Comments Urine Bilirubin (test code = 1977-8) NEGATIVE NEGATIVE [facility] Shtel5635-87-50 21:08:00* Test Item Value Reference Range Interpretation Comments Urine Blood (test code = 78316-4) NEGATIVE NEGATIVE [facility] SINGLE (PORTABLE)2019-01-16 20:38:00 [place] [address] Patient Name: KALYANI TALAVERA MR #: [id number] : 1955 Age/Sex: 63/F Req #: [id number] Adm Physician: Ordered by: JACQUES JANE MD Report #: [id number] Location: ER Room/Bed: Procedure: 66 DX/CHEST SINGLE [...] 01/16/192040 COPY TO: JACQUES JANE MD Bedside Ecjmqgv0863-45-58 11:08:00* Test Item Value Reference Range Interpretation Comments Bedside Glucose (test code = 55203-7) 289 70-120 H Meter ID: [id number] 2019-01-13 05:34:00* Test Item Value Reference Range Interpretation Comments Sodium Level (test code = 2951-2) 138 136-145 [facility]assium Wmudw9350-12-37 05:34:00* Test Item Value Reference Range Interpretation Comments Potassium Level (test code = 2823-3) 3.8 3.5-5.1 [facility]Chloride Lwuyk1383-01-38 05:34:00* Test Item Value Reference Range Interpretation Comments Chloride Level (test code = 2075-0) 105 98-107 [facility]Carbon Dioxide Ctqmz5758-68-96 05:34:00* Test Item Value Reference Range Interpretation Comments Carbon Dioxide Level (test code = 2028-9) 25 22-29 [facility]Anion Dcl3178-11-42 05:34:00* Test Item Value Reference Range Interpretation Comments Anion Gap (test code = 49183-7) 11.8 8-16 [facility]Blood Urea Krvucpde8786-93-96 05:34:00* Test Item Value Reference Range Interpretation Comments Blood Urea Nitrogen (test code = 3094-0) 16 7-26 [facility]Creatinine2019-06-23 05:34:00* Test Item Value Reference Range Interpretation Comments Creatinine (test code = 2160-0) 0.78 0.57-1.11 [facility]BUN/Creatinine Nvidh3803-23-24 05:34:00* Test Item Value Reference Range Interpretation Comments BUN/Creatinine Ratio (test code = 3097-3) 21 6- [facility]Estimat Glomerular Filtration Rate 2019-01-13 05:34:00* Test Item Value Reference Range Interpretation Comments Estimat Glomerular Filtration Rate (test code = 914328681) > 60 >60 Ranges were taken from the National Kidney Disease Education Program and the [facility] literature.Reference ranges:60 or greater: Dstewr37-83 ( for 3 consecutive months): Chronic kidney disease 15 or less: Kidney failureAdventHealthGlucose Juxnw1060-33-60 05:34:00* Test Item Value Reference Range Interpretation Comments Glucose Level (test code = OHT4335) 151 74-118 H [facility]Calcium Egkwx3355-18-62 05:34:00* Test Item Value Reference Range Interpretation Comments Calcium Level (test code = 32725-5) 8.5 8.4-10.2 [facility]HealthTotal Qtzahtkhj3931-58-16 05:34:00* Test Item Value Reference Range Interpretation Comments Total Bilirubin (test code = 1975-2) 0.3 0.2-1.2 [facility]HealthAspartate Amino Transf (AST/SGOT) 2019-01-13 05:34:00* Test Item Value Reference Range Interpretation Comments Aspartate Amino Transf (AST/SGOT) (test code = Aspartate Amino Transf (AST/SGOT)) 12 5-34 [facility]HealthAlanine Aminotransferase (ALT/SGPT) 2019-01-13 05:34:00* Test Item Value Reference Range Interpretation Comments Alanine Aminotransferase (ALT/SGPT) (test code = 1742-6) 16 0-55 [facility]HealthTotal Wihflld5605-57-19 05:34:00* Test Item Value Reference Range Interpretation Comments Total Protein (test code = 2885-2) 5.5 6.5-8.1 L [facility]Albumin2019-06-23 05:34:00* Test Item Value Reference Range Interpretation Comments Albumin (test code = 1751-7) 3.0 3.5-5.0 L [facility]Globulin2019-06-23 05:34:00* Test Item Value Reference Range Interpretation Comments Globulin (test code = 81947-3) 2.5 2.3-3.5 [facility]Albumin/Globulin Tdftl6204-65-24 05:34:00 * Test Item Value Reference Range Interpretation Comments Albumin/Globulin Ratio (test code = 1759-0) 1.2 0.8-2.0 [facility]Alkaline Wdrryzibokx9021-99-18 05:34:00* Test Item Value Reference Range Interpretation Comments Alkaline Phosphatase (test code = 6768-6) 69 40-150 [facility]White Blood Ivjbv9985-69-82 05:17:00* Test Item Value Reference Range Interpretation Comments White Blood Count (test code = 6690-2) 5.11 4.8-10.8 [facility]Red Blood Jhlfc2696-56-35 05:17:00* Test Item Value Reference Range Interpretation Comments Red Blood Count (test code = 789-8) 4.52 3.6-5.1 [facility]Hemoglobin2019-06-23 05:17:00* Test Item Value Reference Range Interpretation Comments Hemoglobin (test code = 18816-3) 11.2 12.0-16.0 L [facility]Hematocrit2019-06-23 05:17:00* Test Item Value Reference Range Interpretation Comments Hematocrit (test code = 4544-3) 36.5 34.2-44.1 [facility]Mean Corpuscular Gxinmc0263-93-64 05:17:00* Test Item Value Reference Range Interpretation Comments Mean Corpuscular Volume (test code = 787-2) 80.8 81-99 L [facility] Corpuscular Jhkbgvfppd1219-65-28 05:17:00* Test Item Value Reference Range Interpretation Comments Mean Corpuscular Hemoglobin (test code = 785-6) 24.8 28-32 L [facility]Mean Corpuscular Hemoglobin Concent 2019-01-13 05:17:00* Test Item Value Reference Range Interpretation Comments Mean Corpuscular Hemoglobin Concent (test code = 786-4) 30.7 31-35 L [facility]Red Cell Distribution Nvvgm6053-79-93 05:17:00* Test Item Value Reference Range Interpretation Comments Red Cell Distribution Width (test code = 00129-6) 14.9 11.7 -14.4 H [facility]Platelet Ulzpa4513-33-40 05:17:00* Test Item Value Reference Range Interpretation Comments Platelet Count (test code = 777-3) 149 140-360 [facility]Neutrophils (%) (Auto)2019-01-13 05:17:00 * Test Item Value Reference Range Interpretation Comments Neutrophils (%) (Auto) (test code = 08016-0) 67.6 38.7-80.0 [facility]Lymphocytes (%) (Auto)2019-01-13 05:17:00 * Test Item Value Reference Range Interpretation Comments Lymphocytes (%) (Auto) (test code = 736-9) 20.4 18.0-39.1 [facility]Monocytes (%) (Auto)2019-01-13 05:17:00* Test Item Value Reference Range Interpretation Comments Monocytes (%) (Auto) (test code = 5905-5) 5.9 4.4-11.3 [facility]Eosinophils (%) (Auto)2019-01-13 05:17:00 * Test Item Value Reference Range Interpretation Comments Eosinophils (%) (Auto) (test code = 713-8) 4.1 0.0-6.0 [facility]Basophils (%) (Auto)2019-01-13 05:17:00* Test Item Value Reference Range Interpretation Comments Basophils (%) (Auto) (test code = 706-2) 1.2 0.0-1.0 H [facility]HealthIM GRANULOCYTES %2019-01-13 05:17:00* Test Item Value Reference Range Interpretation Comments IM GRANULOCYTES % (test code = IM GRANULOCYTES %) 0.8 0.0- 1.0 [facility]Neutrophils # (Auto)2019-01-13 05:17:00* Test Item Value Reference Range Interpretation Comments Neutrophils # (Auto) (test code = 751-8) 3.5 2.1-6.9 [facility]Lymphocytes # (Auto)2019-01-13 05:17:00* Test Item Value Reference Range Interpretation Comments Lymphocytes # (Auto) (test code = 89387-3) 1.0 1.0-3.2 [facility]Monocytes # (Auto)2019-01-13 05:17:00* Test Item Value Reference Range Interpretation Comments Monocytes # (Auto) (test code = 742-7) 0.3 0.2-0.8 [facility]Eosinophils # (Auto)2019-01-13 05:17:00* Test Item Value Reference Range Interpretation Comments Eosinophils # (Auto) (test code = 711-2) 0.2 0.0-0.4 [facility]Basophils # (Auto)2019-01-13 05:17:00* Test Item Value Reference Range Interpretation Comments Basophils # (Auto) (test code = 704-7) 0.1 0.0-0.1 [facility]Absolute Immature Granulocyte (auto 2019-01-13 05:17:00* Test Item Value Reference Range Interpretation Comments Absolute Immature Granulocyte (auto (joseph t code = Absolute Immature Granulocyte (auto) 0.04 0-0.1 [facility]Hemoglobin A1c Qmsjitl8953-29-71 13:04:00 * Test Item Value Reference Range Interpretation Comments Hemoglobin A1c Percent (test code = Hemoglobin A1c Percent) 11.6 4.0-7.0 H [facility]Urine ZYX3773-70-39 18:54:00* Test Item Value Reference Range Interpretation Comments Urine WBC (test code = 5821-4) NONE 0-5 [facility]Urine MUR5157-19-25 18:54:00* Test Item Value Reference Range Interpretation Comments Urine RBC (test code = 61692-2) NONE 0-5 [facility]rine Sejfxpyj8462-36-77 18:54:00* Test Item Value Reference Range Interpretation Comments Urine Bacteria (test code = 15522-3) FEW NONE [facility]Urine Epithelial Ieqdf7458-49-33 18:54:00 * Test Item Value Reference Range Interpretation Comments Urine Epithelial Cells (test code = 26998-8) FEW NONE [facility]Creatine Kinase DL2708-15-43 18:44:00* Test Item Value Reference Range Interpretation Comments Creatine Kinase MB (test code = 79760-8) 1.00 0-5.0 [facility]Troponin D9638-41-60 18:44:00* Test Item Value Reference Range Interpretation Comments Troponin I (test code = LTZ8774) 0.002 0-0.300 [facility]CHEST SINGLE (PORTABLE)2019-01-11 18:42:00 [facility] [address] [place] [address] Patient Name: KALYANI TALAVERA MR #: [id number] : 1955 Age/Sex: 63/F Req #: [id number] Adm Physician: Ordered by: FLO TOLBERT MD Report #: [id number] Location: ER Room/Bed: Procedure: [id number] DX/C HEST SINGLE (PORTABLE) Exam Date: Exam [...] 01/11/191842 COPY TO: FLO TOLBERT MD Creatine Lrtuin2376-84-98 18:39:00* Test Item Value Reference Range Interpretation Comments Creatine Kinase (test code = 2157-6) 29 29-168 [facility]Urine Mkaoc5631-14-74 18:38:00* Test Item Value Reference Range Interpretation Comments Urine Color (test code = 5778-6) YELLOW YELLOW [facility]Urine Ucgmuwq7366-46-85 18:38:00* Test Item Value Reference Range Interpretation Comments Urine Clarity (test code = 44476-1) CLEAR CLEAR [facility]Urine Specific Oewtija3636-99-38 18:38:00 * Test Item Value Reference Range Interpretation Comments Urine Specific [place] (test code = 5811-5) 1.010 1.010-1.02 5 [facility]Urine uW9496-59-38 18:38:00* Test Item Value Reference Range Interpretation Comments Urine pH (test code = 07629-4) 6 5-7 [facility]Urine Leukocyte Rpwbybgs9841-91-24 18:38:00* Test Item Value Reference Range Interpretation Comments Urine Leukocyte Esterase (test code = 59215-7) NEGATIVE NEGATIV E [facility]Urine Zsbeuyd2692-45-24 18:38:00* Test Item Value Reference Range Interpretation Comments Urine Nitrite (test code = 06642-6) NEGATIVE NEGATIVE [facility] Qkuqugw3860-69-54 18:38:00* Test Item Value Reference Range Interpretation Comments Urine Protein (test code = 63295-3) NEGATIVE NEGATIVE [facility] Glucose (UA)2019-01-11 18:38:00* Test Item Value Reference Range Interpretation Comments Urine Glucose (UA) (test code = 24071-0) 3+ NEGATIVE [facility]Urine Nrnlykm4570-20-46 18:38:00* Test Item Value Reference Range Interpretation Comments Urine Ketones (test code = 78640-1) NEGATIVE NEGATIVE [facility] Xjbrdpuqtiyb2728-78-41 18:38:00* Test Item Value Reference Range Interpretation Comments Urine Urobilinogen (test code = 21417-0) 0.2 0.2-1 [facility]Urine Ivmwazohh4516-08-70 18:38:00* Test Item Value Reference Range Interpretation Comments Urine Bilirubin (test code = 1977-8) NEGATIVE NEGATIVE [facility] Jhvhk9796-29-16 18:38:00* Test Item Value Reference Range Interpretation Comments Urine Blood (test code = 41242-8) NEGATIVE NEGATIVE [facility]Prothrombin Zdzp9766-07-75 18:32:00* Test Item Value Reference Range Interpretation Comments Prothrombin Time (test code = 5902-2) 12.7 11.9-14.5 [facility]Prothromb Time International Ratio 2019-01-11 18:32:00* Test Item Value Reference Range Interpretation Comments Prothromb Time International Ratio (test code = 6301-6) 0.91 Oral Anticoagulant Therapy INR Values:1. Low Intensity Therapy 1.5 - 2.02 . Moderate Intensity Therapy 2.0 - 3.03. High Intensity Therapy(1) 2.5 - 3. 54. High Intensity Therapy(2) 3.0 - 4.05. Panic Value INR > 5.0 [facility]Activated Partial Thromboplast Time 2019-01-11 18:32:00* Test Item Value Reference Range Interpretation Comments Activated Partial Thromboplast Time (test code = 32340-0) 24.1 23.8-35.5 [facility]Prothrombin Sndl7739-85-94 18:32:00* Test Item Value Reference Range Interpretation Comments Prothrombin Time (test code = 5902-2) 12.7 11.9-14.5 [facility]Prothromb Time International Ratio 2019-01-11 18:32:00* Test Item Value Reference Range Interpretation Comments Prothromb Time International Ratio (test code = 6301-6) 0.91 Oral Anticoagulant Therapy INR Values:1. Low Intensity Therapy 1.5 - 2.02 . Moderate Intensity Therapy 2.0 - 3.03. High Intensity Therapy(1) 2.5 - 3. 54. High Intensity Therapy(2) 3.0 - 4.05. Panic Value INR > 5.0 [facility]Act[facility] Partial Thromboplast Time 2019-01-11 18:32:00* Test Item Value Reference Range Interpretation Comments Activated Partial Thromboplast Time (test code = 83888-3) 24.1 23.8-35.5 [facility]Prothrombin Vith2845-65-88 18:32:00* Test Item Value Reference Range Interpretation Comments Prothrombin Time (test code = 5902-2) 12.7 11.9-14.5 [facility]Prothromb Time International Ratio 2019-01-11 18:32:00* Test Item Value Reference Range Interpretation Comments Prothromb Time International Ratio (test code = 6301-6) 0.91 Oral Anticoagulant Therapy INR Values:1. Low Intensity Therapy 1.5 - 2.02 . Moderate Intensity Therapy 2.0 - 3.03. High Intensity Therapy(1) 2.5 - 3. 54. High Intensity Therapy(2) 3.0 - 4.05. Panic Value INR > 5.0 [facility]Act[facility] Partial Thromboplast Time 2019-01-11 18:32:00* Test Item Value Reference Range Interpretation Comments Activated Partial Thromboplast Time (test code = 61281-8) 24.1 23.8-35.5 [facility]Prothrombin Qkvi1114-43-73 18:32:00* Test Item Value Reference Range Interpretation Comments Prothrombin Time (test code = 5902-2) 12.7 11.9-14.5 [facility]Prothromb Time International Ratio 2019-01-11 18:32:00* Test Item Value Reference Range Interpretation Comments Prothromb Time International Ratio (test code = 6301-6) 0.91 Oral Anticoagulant Therapy INR Values:1. Low Intensity Therapy 1.5 - 2.02 . Moderate Intensity Therapy 2.0 - 3.03. High Intensity Therapy(1) 2.5 - 3. 54. High Intensity Therapy(2) 3.0 - 4.05. Panic Value INR > 5.0 [facility]Act[facility] Partial Thromboplast Time 2019-01-11 18:32:00* Test Item Value Reference Range Interpretation Comments Activated Partial Thromboplast Time (test code = 62728-8) 24.1 23.8-35.5 [facility]Prothrombin Orod6753-90-12 18:32:00* Test Item Value Reference Range Interpretation Comments Prothrombin Time (test code = 5902-2) 12.7 11.9-14.5 [facility]Prothromb Time International Ratio 2019-01-11 18:32:00* Test Item Value Reference Range Interpretation Comments Prothromb Time International Ratio (test code = 6301-6) 0.91 Oral Anticoagulant Therapy INR Values:1. Low Intensity Therapy 1.5 - 2.02 . Moderate Intensity Therapy 2.0 - 3.03. High Intensity Therapy(1) 2.5 - 3. 54. High Intensity Therapy(2) 3.0 - 4.05. Panic Value INR > 5.0 [facility]Act[facility] Partial Thromboplast Time 2019-01-11 18:32:00* Test Item Value Reference Range Interpretation Comments Activated Partial Thromboplast Time (test code = 54797-7) 24.1 23.8-35.5 [facility]Prothrombin Tbky3533-54-34 18:32:00* Test Item Value Reference Range Interpretation Comments Prothrombin Time (test code = 5902-2) 12.7 11.9-14.5 [facility]Prothromb Time International Ratio 2019-01-11 18:32:00* Test Item Value Reference Range Interpretation Comments Prothromb Time International Ratio (test code = 6301-6) 0.91 Oral Anticoagulant Therapy INR Values:1. Low Intensity Therapy 1.5 - 2.02 . Moderate Intensity Therapy 2.0 - 3.03. High Intensity Therapy(1) 2.5 - 3. 54. High Intensity Therapy(2) 3.0 - 4.05. Panic Value INR > 5.0 [facility]Act[facility] Partial Thromboplast Time 2019-01-11 18:32:00* Test Item Value Reference Range Interpretation Comments Activated Partial Thromboplast Time (test code = 37215-7) 24.1 23.8-35.5 [facility]Prothrombin Utze8683-89-76 18:32:00* Test Item Value Reference Range Interpretation Comments Prothrombin Time (test code = 5902-2) 12.7 11.9-14.5 [facility]Prothromb Time International Ratio 2019-01-11 18:32:00* Test Item Value Reference Range Interpretation Comments Prothromb Time International Ratio (test code = 6301-6) 0.91 Oral Anticoagulant Therapy INR Values:1. Low Intensity Therapy 1.5 - 2.02 . Moderate Intensity Therapy 2.0 - 3.03. High Intensity Therapy(1) 2.5 - 3. 54. High Intensity Therapy(2) 3.0 - 4.05. Panic Value INR > 5.0 [facility]Act[facility] Partial Thromboplast Time 2019-01-11 18:32:00* Test Item Value Reference Range Interpretation Comments Activated Partial Thromboplast Time (test code = 10693-4) 24.1 23.8-35.5 [facility] HXGXX[facility]10-09-54 17:48:00 [facility] [address] [address] Patient Name: KALYANI TALAVERA MR #: [id number] : 1955 Age/Sex: 63/F Req #: [id number] Adm Physician: Ordered by: BOYD NICHOLS NP Report #: [id number] Location: ER Room/Bed: Procedure: [id number] D X/CHEST 2 VIEWS Exam Date: 01/10/19 Exam Time: 1724 REPORT STATUS: Signed EXAMINATIO N: CHEST 2 VIEWS INDICATION: Hyperglycemia crackles bases 18745 452 1724 COMPARISON: Chest x-ray 07/01/2018 FINDINGS: PA [...] T O: BOYD NICHOLS NP B-Type Natriuretic Bjyayip7577-34-27 17:30:00* Test Item Value Reference Range Interpretation Comments B-Type Natriuretic Peptide (test code = 39239-8) 24.4 0-100 [facility]HealthB-Type Natriuretic Vivnlgp2063-51-25 17:30:00* Test Item Value Reference Range Interpretation Comments B-Type Natriuretic Peptide (test code = 84170-5) 24.4 0-100 [facility]Urine LQE0847-23-54 17:03:00* Test Item Value Reference Range Interpretation Comments Urine WBC (test code = 5821-4) 0-5 0-5 [facility]Urine NVI6162-15-51 17:03:00* Test Item Value Reference Range Interpretation Comments Urine RBC (test code = 83229-0) NONE 0-5 [facility]Urine Rdggwoqi7553-50-46 17:03:00* Test Item Value Reference Range Interpretation Comments Urine Bacteria (test code = 29489-3) MODERATE NONE H [facility]Urine Epithelial Ftzeg8900-37-98 17:03:00 * Test Item Value Reference Range Interpretation Comments Urine Epithelial Cells (test code = 81400-1) MANY NONE [facility]Urine Khkki7917-40-54 17:00:00* Test Item Value Reference Range Interpretation Comments Urine Color (test code = 5778-6) YELLOW YELLOW [facility]Urine Inkcoap2970-06-18 17:00:00* Test Item Value Reference Range Interpretation Comments Urine Clarity (test code = 62526-1) CLEAR CLEAR [facility]Urine Specific Rshlqdl4356-26-39 17:00:00 * Test Item Value Reference Range Interpretation Comments Urine Specific [place] (test code = 5811-5) 1.020 1.010-1.02 5 [facility]Urine dR9331-89-28 17:00:00* Test Item Value Reference Range Interpretation Comments Urine pH (test code = 68855-7) 6 5-7 [facility]Urine Leukocyte Gyuiadkr4808-16-77 17:00:00* Test Item Value Reference Range Interpretation Comments Urine Leukocyte Esterase (test code = 90120-7) NEGATIVE NEGATIV E [facility]Urine Faouxts1214-12-31 17:00:00* Test Item Value Reference Range Interpretation Comments Urine Nitrite (test code = 87334-3) NEGATIVE NEGATIVE [facility]Urine Ihckqnx9059-56-54 17:00:00* Test Item Value Reference Range Interpretation Comments Urine Protein (test code = 42885-4) NEGATIVE NEGATIVE [facility]rine Glucose (UA)2019-01-10 17:00:00* Test Item Value Reference Range Interpretation Comments Urine Glucose (UA) (test code = 78249-8) 3+ NEGATIVE [facility]Urine Tabqvuw0764-22-92 17:00:00* Test Item Value Reference Range Interpretation Comments Urine Ketones (test code = 97473-7) NEGATIVE NEGATIVE [facility]Urine Ctrlhopklvxf3804-61-90 17:00:00* Test Item Value Reference Range Interpretation Comments Urine Urobilinogen (test code = 36271-4) 0.2 0.2-1 [facility]Urine Iuaorpfhs1361-86-01 17:00:00* Test Item Value Reference Range Interpretation Comments Urine Bilirubin (test code = 1977-8) NEGATIVE NEGATIVE [facility]Urine Hnkhh9331-24-71 17:00:00* Test Item Value Reference Range Interpretation Comments Urine Blood (test code = 28722-5) NEGATIVE NEGATIVE [facility]Creatine Kinase IO3399-57-54 16:38:00* Test Item Value Reference Range Interpretation Comments Creatine Kinase MB (test code = 89794-9) 1.60 0-5.0 [facility]HealthTroponin E8696-80-55 16:38:00* Test Item Value Reference Range Interpretation Comments Troponin I (test code = PUX0851) 0.007 0-0.300 [facility] Qsrrg7036-61-14 16:33:00* Test Item Value Reference Range Interpretation Comments Sodium Level (test code = 2951-2) 135 136-145 L [facility]Potassium Pbbqy9320-04-96 16:33:00* Test Item Value Reference Range Interpretation Comments Potassium Level (test code = 2823-3) 4.9 3.5-5.1 [facility]HealthChloride Xdahr4379-17-16 16:33:00* Test Item Value Reference Range Interpretation Comments Chloride Level (test code = 2075-0) 102 98-107 [facility]HealthCarbon Dioxide Ntimv8298-11-83 16:33:00* Test Item Value Reference Range Interpretation Comments Carbon Dioxide Level (test code = 2028-9) 21 22-29 L [facility]HealthAnion Lsd3829-45-32 16:33:00* Test Item Value Reference Range Interpretation Comments Anion Gap (test code = 72166-1) 16.9 8-16 H [facility]HealthBlood Urea Dfwuapca0147-37-34 16:33:00* Test Item Value Reference Range Interpretation Comments Blood Urea Nitrogen (test code = 3094-0) 31 7-26 H [facility]HealthCreatinine2019-06-20 16:33:00* Test Item Value Reference Range Interpretation Comments Creatinine (test code = 2160-0) 1.16 0.57-1.11 H [facility]HealthBUN/Creatinine Ftrcx3214-98-22 16:33:00* Test Item Value Reference Range Interpretation Comments BUN/Creatinine Ratio (test code = 3097-3) 27 6-25 H [facility]HealthEstimat Glomerular Filtration Rate 2019-01-10 16:33:00* Test Item Value Reference Range Interpretation Comments Estimat Glomerular Filtration Rate (test code = 796125062) 47 >60 L Ranges were taken from the National Kidney Disease Education Program and the [facility] literature.Reference ranges:60 or greater: Haipqw86-83 ( for 3 consecutive months): Chronic kidney disease 15 or less: Kidney failureAdventHealthGlucose Fpzsj7209-28-33 16:33:00* Test Item Value Reference Range Interpretation Comments Glucose Level (test code = CWH6600) 326 74-118 H [facility]HealthCalcium Unpov1790-24-15 16:33:00* Test Item Value Reference Range Interpretation Comments Calcium Level (test code = 08350-0) 9.7 8.4-10.2 [facility]HealthTotal Kntqqhfqx0860-63-86 16:33:00* Test Item Value Reference Range Interpretation Comments Total Bilirubin (test code = 1975-2) 0.3 0.2-1.2 [facility]HealthAspartate Amino Transf (AST/SGOT) 2019-01-10 16:33:00* Test Item Value Reference Range Interpretation Comments Aspartate Amino Transf (AST/SGOT) (test code = Aspartate Amino Transf (AST/SGOT)) 19 5-34 [facility]HealthAlanine Aminotransferase (ALT/SGPT) 2019-01-10 16:33:00* Test Item Value Reference Range Interpretation Comments Alanine Aminotransferase (ALT/SGPT) (test code = 1742-6) 22 0-55 [facility]HealthTotal Jewcbkt6199-41-71 16:33:00* Test Item Value Reference Range Interpretation Comments Total Protein (test code = 2885-2) 7.1 6.5-8.1 [facility]Albumin2019-06-20 16:33:00* Test Item Value Reference Range Interpretation Comments Albumin (test code = 1751-7) 3.5 3.5-5.0 [facility]Globulin2019-06-20 16:33:00* Test Item Value Reference Range Interpretation Comments Globulin (test code = 15565-5) 3.6 2.3-3.5 H [facility]HealthAlbumin/Globulin Ctsfq5726-66-90 16:33:00 * Test Item Value Reference Range Interpretation Comments Albumin/Globulin Ratio (test code = 1759-0) 1.0 0.8-2.0 [facility]Alkaline Vyitilnchtu2789-36-98 16:33:00* Test Item Value Reference Range Interpretation Comments Alkaline Phosphatase (test code = 6768-6) 81 40-150 [facility]Creatine Czsmct7158-47-25 16:33:00* Test Item Value Reference Range Interpretation Comments Creatine Kinase (test code = 2157-6) 35 29-168 [facility]White Blood Aggtm4927-71-22 16:22:00* Test Item Value Reference Range Interpretation Comments White Blood Count (test code = 6690-2) 5.88 4.8-10.8 [facility]Red Blood Dhbuk4912-06-37 16:22:00* Test Item Value Reference Range Interpretation Comments Red Blood Count (test code = 789-8) 5.19 3.6-5.1 H [facility]HealthHemoglobin2019-06-20 16:22:00* Test Item Value Reference Range Interpretation Comments Hemoglobin (test code = 31228-5) 13.0 12.0-16.0 [facility]HealthHematocrit2019-06-20 16:22:00* Test Item Value Reference Range Interpretation Comments Hematocrit (test code = 4544-3) 42.1 34.2-44.1 [facility]Mean Corpuscular Cuznch0872-89-07 16:22:00* Test Item Value Reference Range Interpretation Comments Mean Corpuscular Volume (test code = 787-2) 81.1 81-99 [facility]Mean Corpuscular Jchtslffch5063-10-48 16:22:00* Test Item Value Reference Range Interpretation Comments Mean Corpuscular Hemoglobin (test code = 785-6) 25.0 28-32 L [facility]Mean Corpuscular Hemoglobin Concent 2019-01-10 16:22:00* Test Item Value Reference Range Interpretation Comments Mean Corpuscular Hemoglobin Concent (test code = 786-4) 30.9 31-35 L [facility]HealthRed Cell Distribution Urqku1287-56-19 16:22:00* Test Item Value Reference Range Interpretation Comments Red Cell Distribution Width (test code = 18822-7) 15.0 11.7 -14.4 H [facility]Platelet Ttaxy6658-30-62 16:22:00* Test Item Value Reference Range Interpretation Comments Platelet Count (test code = 777-3) 151 140-360 [facility]Neutrophils (%) (Auto)2019-01-10 16:22:00 * Test Item Value Reference Range Interpretation Comments Neutrophils (%) (Auto) (test code = 13276-6) 66.5 38.7-80.0 [facility]Lymphocytes (%) (Auto)2019-01-10 16:22:00 * Test Item Value Reference Range Interpretation Comments Lymphocytes (%) (Auto) (test code = 736-9) 24.0 18.0-39.1 [facility]Monocytes (%) (Auto)2019-01-10 16:22:00* Test Item Value Reference Range Interpretation Comments Monocytes (%) (Auto) (test code = 5905-5) 5.1 4.4-11.3 [facility]Eosinophils (%) (Auto)2019-01-10 16:22:00 * Test Item Value Reference Range Interpretation Comments Eosinophils (%) (Auto) (test code = 713-8) 2.7 0.0-6.0 [facility]Basophils (%) (Auto)2019-01-10 16:22:00* Test Item Value Reference Range Interpretation Comments Basophils (%) (Auto) (test code = 706-2) 1.0 0.0-1.0 [facility]HealthIM GRANULOCYTES %2019-01-10 16:22:00* Test Item Value Reference Range Interpretation Comments IM GRANULOCYTES % (test code = IM GRANULOCYTES %) 0.7 0.0- 1.0 [facility]Neutrophils # (Auto)2019-01-10 16:22:00* Test Item Value Reference Range Interpretation Comments Neutrophils # (Auto) (test code = 751-8) 3.9 2.1-6.9 [facility]Lymphocytes # (Auto)2019-01-10 16:22:00* Test Item Value Reference Range Interpretation Comments Lymphocytes # (Auto) (test code = 25139-3) 1.4 1.0-3.2 [facility]Monocytes # (Auto)2019-01-10 16:22:00* Test Item Value Reference Range Interpretation Comments Monocytes # (Auto) (test code = 742-7) 0.3 0.2-0.8 [facility]Eosinophils # (Auto)2019-01-10 16:22:00* Test Item Value Reference Range Interpretation Comments Eosinophils # (Auto) (test code = 711-2) 0.2 0.0-0.4 [facility]Basophils # (Auto)2019-01-10 16:22:00* Test Item Value Reference Range Interpretation Comments Basophils # (Auto) (test code = 704-7) 0.1 0.0-0.1 [facility]HealthAbsolute Immature Granulocyte (auto 2019-01-10 16:22:00* Test Item Value Reference Range Interpretation Comments Absolute Immature Granulocyte (auto (joseph t code = Absolute Immature Granulocyte (auto) 0.04 0-0.1 [facility]HealthGLUBED2019-06-15 03:55:00* Test Item Value Reference Range Interpretation Comments GLUBED (test code = GLUBED) 370 mg/dL 74-106 H Performed by certified auxiliary equipment operator at [facility] NGGDRY3960-04-38 03:55:00* Test Item Value Reference Range Interpretation Comments GLUBED (test code = GLUBED) 358 mg/dL 74-106 H Performed by certified auxiliary equipment operator at [facility] BASIC METABOLIC BEDFO8987-81-79 03:09:00* Test Item Value Reference Range Interpretation [...] CA) 8.1 mg/dL 8.5-10.1 L HEPATIC FUNCTION [id number] 03:09:00* Test Item Value Reference Range Interpretation [...] reference range due to change in reagent. [id number] 03:09:00* Test Item Value Reference Range Interpretation Comments TROPONIN-I (test code = TROPI) <0.015 ng/mL 0-0.045 N BASIC METABOLIC [id number] 03:01:00* Test Item Value Reference Range Interpretation [...] code = CA) mg/dL 8.5-10.1 HEPATIC FUNCTION [id number] 03:01:00* Test Item Value Reference Range Interpretation [...] TOTAL (test code = ALKP) IUnit/L 45-117 [id number] 03:01:00* Test Item Value Reference Range Interpretation Comments TROPONIN-I (test code = TROPI) ng/mL 0-0.045 CBC W/AUTO [id number] 02:56:00* Test Item Value Reference Range Interpretation [...] (test code = MDIFF) NO CBC W/AUTO [id number] 02:51:00* Test Item Value Reference Range Interpretation [...] (test code = BA#) K/mm3 0.0-0.2 URINALYSIS [id number] 01:33:00* Test Item Value Reference Range Interpretation [...] Urine Source? Clean Catch- XR CHEST 1 [id number] 01:00:00 FAX: Amish AguillonSonam, [place]: St: [facility] FAX: Vince Jones DO Name: KALYANI TALAVERA [facility] : 1955 Age/S: 63/F [address] [facility] Unit #: [id number] Loc: [place] [address] Phys: Vince Jones DO Acct: [id number] Dis Date: Status: REG ER PHONE #: [phone] Exam Date: 01/05/2019 0045 FAX #: [phone] Reason: Altered Mental Status EXAMS: CPT CODE: [id number] XR CHEST 1 V 18680 LOCATION: Q15 HISTORY: 63-year-old female who presents with alteration of awareness. COMMENT: A frontal chest radiograph was obtained at 12:44 a.m., and compared to study of [facility] 2018. Central vascular congestion pattern [...] Vince Jones DO Technologist: RT ROBERT(Megan) Trnscrd D ate/Time/By: 01/05/2019 (0100) : By: [email or web address] Orig Print D/T: S: 12/22 (0103) PAGE 1 Signed Repor t - XR CHEST 1 [id number] 01:00:00 FAX: Amish Nur, [place]: St: [facility] FAX: Vince Jones DO Name: KALYANI TALAVERA [facility] : 1955 Age/S: 63/F [address] [facility] Unit #: [id number] Loc: [place] [address] Phys: Vince Jones DO Acct: [id number] Dis Date: Status: [facility] ER PHONE #: [phone] Exam Date: 01/05/2019 0045 FAX #: [phone] Reason: Altered Mental Status EXAMS: CPT CODE: [id number] XR CHEST 1 V 99870 LOCATION: Q15 HISTORY: 63-year-old female who presents with alteration of awareness. COMMENT: A frontal chest radiograph was obtained at 12:44 a.m., and compared to study of [facility] 2018. Central vascular congestion pattern [...] MD; Vince Jones DO Technologist: SAMPSON JONES) Trnscranjana Simpson ate/Time/By: 01/05/2019 (0100) : By: [email or web address] Orig Print D/T: S: 12/22 (0103) PAGE 1 Signed Repor t - XR CHEST 1 [id number] 01:00:00 FAX: Amish Nur, [place]: St: [facility] FAX: Vince Jones DO Name: KALYANI TALAVERA [facility] : 1955 Age/S: 63/F [address] [facility] Unit #: [id number] Loc: [place] [address] Phys: Vince Jones DO Acct: [id number] Dis Date: Status: [facility] ER PHONE #: [phone] Exam Date: 01/05/2019 0045 FAX #: [phone] Reason: Altered Mental Status EXAMS: CPT CODE: [id number] XR CHEST 1 V 25120 LOCATION: Q15 HISTORY: 63-year-old female who presents with alteration of awareness. COMMENT: A frontal chest radiograph was obtained at 12:44 a.m., and compared to study of [facility] 2018. Central vascular congestion pattern [...] and signed by: Kizzy See CC: Lucille Nru MD; Vince Jones DO Technologist: RT ROBERT(Megan) Trnscranjana Simpson ate/Time/By: 01/05/2019 (99) : By: [email or web address] Orig Print D/T: S: 12/22 (0107) PAGE 1 Signed Repor t - CT HEAD/BRAIN W/O [id number] 00:55:00 Name: KALYANI TALAVERA [facility] : 1955 Age/S: 63 / F [address] [facility] Unit #: [id number] Loc: [place] [address] Phys: Vince Jones DO Acct: [id number] Dis Date: Status: REG ER PHONE #: Exam Date: 01/05/2019 0050 FAX #: [phone] Reason: Altered Mental Status EXAMS: CPT CODE: [id number] CT HEAD/BRAIN W/O CONT 03433 EXAM: - CT HEAD/BRAIN W/O CONT Location [...] 1 Signed Report (CONTINUED) Name: KALYANI TALAVERA [facility] : 1955 Age/S: 63 / F [address] Unit #: [id number] Loc: [place] [address] Phys: Vince Jones DO Acct: [id number] Dis Date: Status: REG ER PHONE #: [phone] Exam Date: 01/05/201949 FAX #: [phone] Reason: Altered Mental Status EXAMS: CPT CODE: [id number] CT HEAD/BRAIN W/O CONT 77415 <Continued> CC: Lucille Nur MD; Vince Jones DO Technologist:Faizan Adame RT(R)(CT) CTDI: DLP: Trnscb Date/Time: 01/05/2019 (54) t.SDR.CB5 Orig Print D/T: S: 01/05/2019 (005) PAGE 2 Signed Report - CT HEAD/BRAIN W/O [id number] 00:55:00 Name: KALYANI TALAVERA [facility] : 1955 Age/S: 63 / F [address] Unit #: [id number] Loc: [place] [address] Phys: Vince Jones DO Acct: [id number] Dis Date: Status: DEP ER PHONE #: [phone] Exam Date: 01/05/201949 FAX #: [phone] Reason: Altered Mental Status EXAMS: CPT CODE: [id number] CT HEAD/BRAIN W/O CONT 51788 EXAM: - CT HEAD/BRAIN W/O CONT Location [...] 1 Signed Report (CONTINUED) Name: KALYANI TALAVERA [facility] : 1955 Age/S: 63 / F [address] [facility] Unit #: [id number] Loc: [place] [address] Phys: Vince Jones DO Acct: [id number] Dis Date: Status: DEP ER PHONE #: [phone] Exam Date: 01/05/201949 FAX #: [phone] Reason: Altered Mental Status EXAMS: CPT CODE: [id number] CT HEAD/BRAIN W/O CONT 23655 <Continued> CC: Lucille Nur MD; Vince Jones DO Technologist:Faizan Adame, RT(R)(CT) CTDI: DLP: Trnscb Date/Time: 01/05/2019 (54) [email or web address] Orig Print D/T: S: 01/05/2019 (57) PAGE 2 Signed Report - CT HEAD/BRAIN W/O [id number] 00:55:00 Name: KALYANI TALAVERA [facility] : 1955 Age/S: 63 / F [address] [facility] Unit #: [id number] Loc: [place] [address] Phys: Vince Jones DO Acct: [id number] Dis Date: Status: DEP ER PHONE #: [phone] Exam Date: 01/05/2019 0050 FAX #: [phone] Reason: Altered Mental Status EXAMS: CPT CODE: [id number] CT HEAD/BRAIN W/O CONT 34657 EXAM: - CT HEAD/BRAIN W/O CONT Location [...] 1 Signed Report (CONTINUED) Name: KALYANI TALAVERA [facility] : 1955 Age/S: 63 / F [address] Unit #: [id number] Loc: [place] [address] Phys: Vince Jones DO Acct: [id number] Dis Date: Status: DEP ER PHONE #: [phone] Exam Date: 01/05/2019 0050 FAX #: [phone] Reason: Altered Mental Status EXAMS: CPT CODE: [id number] CT HEAD/BRAIN W/O CONT 86730 <Continued> CC: Lucille Nur MD; Vince Jones DO Technologist:RT Susan(R)(CT) CTDI: DLP: Trnscb Date/Time: 01/05/2019 (0055) [email or web address] Orig Print D/T: S: 01/05/2019 (0053) PAGE 2 Signed Report GASTRIC,[id number] 16:33:00 RUN DATE: 11/16/18 [facility] PAGE 1 RUN TIME: 1633 Specimen Inqui ry RUN USER: INTERFACE PATIENT: KALYANI TALAVERA ACCT #: [id number] LOC: [place] U #: [id number] AGE/SX: 63/F ROOM: RE11/15/18REG DR: Kb Bradford MD : 57 BED: DIS: STATUS: DEP [facility] TLOC: SPEC #: [id number] RECD: 11/15/18 STATUS: SHREYA BROWN #: [id number] MARILEE: 11/15/18-[address]: Kb Bradford MD ENTERED: 11/15/18 SP TYPE: GASTRIC BX OTHR DR: Lucille Torres MDORDERED: GROSS COPIES TO: Lucille Nur MD [address] [place] [address] Kb Bradford Si, MD [address] [address] PROCEDURES: GROSS ( 11/16/18) TISSUES: [...] WITH NO DISCRETE PATHOLOGIC ULCERATION RRB/sm D [phone], 80723 CONTINUED ON NEXT PAGE RUN DATE: 11/16/18 [facility] PAGE 2 RUN TIME: 1633 Specimen Inquiry RUN USER: INTERFACE SPEC #: [id number] PATIENT: KHANH TALAVERA #[id number] (Continued) MACROSC OPIC The first specimen is [...] [facility] [address] [place] [address] [phone] MICROSCOPIC All of the stains, inc luding any controls performed, stain appropriately. MICROSCOPIC PERFORMED AT [facility] [address] [place] [address] [phone] PERFORMING SITE Diagnosis perf ormed at: [facility] Cons YANETH aceves [address] [place] [address] Signed SIGNATURE ON FILE Tristan Markham MD 11/16/18 1633 * * END OF REPORT [id number] 06:50:00* Test Item Value Reference Range Interpretation Comments GLUBED (test code = GLUBED) 292 mg/dL 74-106 H Performed by certified auxiliary equipment operator at [facility] - XR RIBS UNI 2 V [id number] 14:33:00 FAX: Amish Nur Si [phone] [place]: O St: REG Name: KALYANI CATES [facility] : [birth year] Age/S: 63/F [address] [facility] Unit #: [id number] Loc: [place] [address] Phys: Chris Nur MD Acct: [id number] Dis Date: Status: REG CLI PHONE #: [phone] Exam Date: 11/09/2018 1220 FAX #: [phone] Reason: PAIN EXAMS: CPT CODE: [id number] XR RIBS UNI 2 [place] [address] HISTORY: Pain. NINA RISON: Chest x-ray from [...] Technologist: Claire santos RT(R) Trnscrd Date/Time/By: 11/09/2018 (3255) : By: [email or web address] Orig Print D/T: S: 11/09/2018 (3781) PAGE 1 Signed Report [id number] 17:05:00* Test Item Value Reference Range Interpretation Comments GLUBED (test code = GLUBED) 274 mg/dL 74-106 H Performed by certified auxiliary equipment operator at [facility] [id number] 11:39:00* Test Item Value Reference Range Interpretation Comments GLUBED (test code = GLUBED) 284 mg/dL 74-106 H Performed by certified auxiliary equipment operator at [facility] [id number] 07:48:00* Test Item Value Reference Range Interpretation Comments GLUBED (test code = GLUBED) 285 mg/dL 74-106 H Performed by certified auxiliary equipment operator at [facility] [id number] 20:08:00* Test Item Value Reference Range Interpretation Comments GLUBED (test code = GLUBED) 252 mg/dL 74-106 H Performed by certified auxiliary equipment operator at [facility] [id number] 16:09:00* Test Item Value Reference Range Interpretation Comments GLUBED (test code = GLUBED) 329 mg/dL 74-106 H Performed by certified auxiliary equipment operator at [facility] BASIC METABOLIC [id number] 12:51:00* Test Item Value Reference Range Interpretation [...] CA) 8.6 mg/dL 8.5-10.1 N BASIC METABOLIC [id number] 12:40:00* Test Item Value Reference Range Interpretation [...] CALCIUM (test code = CA) mg/dL 8.5-10.1 [id number] 10:39:00* Test Item Value Reference Range Interpretation Comments GLUBED (test code = GLUBED) 281 mg/dL 74-106 H Performed by certified auxiliary equipment operator at [facility] [id number] 07:54:00* Test Item Value Reference Range Interpretation Comments GLUBED (test code = GLUBED) 299 mg/dL 74-106 H Performed by certified auxiliary equipment operator at [facility] [id number] 21:58:00* Test Item Value Reference Range Interpretation Comments TROPONIN-I (test code = TROPI) <0.015 ng/mL 0-0.045 N SPECIMEN COMMENTS: [id number] 20:26:00* Test Item Value Reference Range Interpretation Comments GLUBED (test code = GLUBED) 340 mg/dL 74-106 H Performed by certified auxiliary equipment operator at [facility] [id number] 17:09:00* Test Item Value Reference Range Interpretation Comments GLUBED (test code = GLUBED) 370 mg/dL 74-106 H Performed by certified auxiliary equipment operator at [facility] [id number] 10:49:00* Test Item Value Reference Range Interpretation Comments GLUBED (test code = GLUBED) 351 mg/dL 74-106 H Performed by certified auxiliary equipment operator at [facility] [id number] 09:54:00* Test Item Value Reference Range Interpretation Comments GLUBED (test code = GLUBED) 304 mg/dL 74-106 H Performed by certified auxiliary equipment operator at [facility] [id number] 09:20:00* Test Item Value Reference Range Interpretation Comments TROPONIN-I (test code = TROPI) <0.015 ng/mL 0-0.045 N COMMENTS TO SENIOR WINDOWS ADMINISTRATOR: COLLECT 3 HOURS AFTER PREVIOUS [id number] 03:55:00* Test Item Value Reference Range Interpretation Comments TROPONIN-I (test code = TROPI) <0.015 ng/mL 0-0.045 N COMMENTS TO SENIOR WINDOWS ADMINISTRATOR: COLLECT 3 HOURS AFTER PREVIOUS SAMPLECBC W/AUTO [id number] 01:32:00* Test Item Value Reference Range Interpretation [...] = MDIFF) NO, ONLY SCAN NEEDED DIFFERENTIAL [id number] 01:32:00* Test Item Value Reference Range Interpretation Comments STAIN ACCEPTABILITY (test code = STN ACCEPTABLE) STAIN ACCEPTABLE POLYCHROMASIA (test code = POLC) 1+ HYPOCHROMIA (test code = HYPO) 1+ ANISOCYTOSIS (test code = ANISO) 1+ MICROCYTOSIS (test code = MICR) 1+ PLATELET ESTIMATE (test code = PLTEST) ADEQUATE PLATELET MORPHOLOGY (test code = PLTMORPH) NORMAL URINALYSIS [id number] 01:10:00* Test Item Value Reference Range Interpretation [...] SEEN #/HPF NONE Urine Source? Clean CatchURINALYSIS [id number] 01:06:00* Test Item Value Reference Range Interpretation [...] per HPF NONE Urine Source? Clean CatchURINALYSIS [id number] 01:03:00* Test Item Value Reference Range Interpretation [...] BACU) per HPF NONE Urine Source? Clean [id number] 00:46:00* Test Item Value Reference Range Interpretation Comments GLUBED (test code = GLUBED) 415 mg/dL 74-106 H Performed by certified auxiliary equipment operator at [facility] VENOUS BLOOD [id number] 23:47:00* Test Item Value Reference Range Interpretation [...] METHGB) 0.4 % 0.0-1.50 N COMPREHENSIVE METABOLIC [id number] 23:25:00* Test Item Value Reference Range Interpretation [...] 537 mg/dL 74-106 Re sults called to [id number] by [employer].LAB.JP1 10/30/18 2325Critical results verified and read back [...] reference range due to change in reagent. [id number] 23:25:00* Test Item Value Reference Range Interpretation Comments LIPASE (test code = LIP) 113 U/L 73.0-393.0 N [id number] 23:25:00* Test Item Value Reference Range Interpretation Comments CKMB (test code = CKMBT) < 1.0 ng/mL 0-6.0 N [id number] 23:25:00* Test Item Value Reference Range Interpretation Comments TROPONIN-I (test code = TROPI) <0.015 ng/mL 0-0.045 N CBC W/AUTO [id number] 23:21:00* Test Item Value Reference Range Interpretation [...] = MDIFF) NO, ONLY SCAN NEEDED DIFFERENTIAL [id number] 23:21:00* Test Item Value Reference Range Interpretation Comments STAIN ACCEPTABILITY (test code = STN ACCEPTABLE) CABOT RINGS (test code = CAB) MORPHOLOGY COMMENT (test code = MOC) PLATELET ESTIMATE (test code = PLTEST) PLATELET MORPHOLOGY (test code = PLTMORPH) CBC W/AUTO [id number] 23:21:00* Test Item Value Reference Range Interpretation [...] = MDIFF) NO, ONLY SCAN NEEDED DIFFERENTIAL [id number] 23:21:00* Test Item Value Reference Range Interpretation Comments STAIN ACCEPTABILITY (test code = STN ACCEPTABLE) CABOT RINGS (test code = CAB) MORPHOLOGY COMMENT (test code = MOC) PLATELET ESTIMATE (test code = PLTEST) PLATELET MORPHOLOGY (test code = PLTMORPH) CBC W/AUTO [id number] 23:21:00* Test Item Value Reference Range Interpretation [...] = MDIFF) NO, ONLY SCAN NEEDED DIFFERENTIAL [id number] 23:21:00* Test Item Value Reference Range Interpretation Comments STAIN ACCEPTABILITY (test code = STN ACCEPTABLE) MORPHOLOGY COMMENT (test code = MOC) PLATELET ESTIMATE (test code = PLTEST) PLATELET MORPHOLOGY (test code = PLTMORPH) CBC W/AUTO [id number] 23:20:00* Test Item Value Reference Range Interpretation [...] = MDIFF) NO, ONLY SCAN NEEDED DIFFERENTIAL [id number] 23:20:00* Test Item Value Reference Range Interpretation Comments STAIN ACCEPTABILITY (test code = STN ACCEPTABLE) CABOT RINGS (test code = CAB) MORPHOLOGY COMMENT (test code = MOC) PLATELET ESTIMATE (test code = PLTEST) PLATELET MORPHOLOGY (test code = PLTMORPH) CBC W/AUTO [id number] 23:08:00* Test Item Value Reference Range Interpretation [...] code = BA#) K/mm3 0.0-0.2 COMPREHENSIVE METABOLIC [id number] 23:06:00* Test Item Value Reference Range Interpretation [...] TOTAL (test code = ALKP) IUnit/L 45-117 [id number] 23:06:00* Test Item Value Reference Range Interpretation Comments LIPASE (test code = LIP) U/L 73.0-393.0 [id number] 23:06:00* Test Item Value Reference Range Interpretation Comments CKMB (test code = CKMBT) ng/mL 0-6.0 [id number] 23:06:00* Test Item Value Reference Range Interpretation Comments TROPONIN-I (test code = TROPI) ng/mL 0-0.045 - XR CHEST 2 [id number] 23:03:00 FAX: Amish Nur, [place]: St: REG FAX: Leonora Norton [phone] Name: KALYANI TALAVERA [facility] : 1955 Age/S: 63/F [address] [facility] Unit #: [id number] Loc: [place] [address] Phys: Leonora Goins MD Acct: [id number] Dis Date: Status: REG ER PHONE #: [phone] Exam Date: 10/30/2018 2241 FAX #: [phone] Reason: cp EXAMS: CPT CODE: [id number] XR CHEST 2 V 18945 REASON FOR EXAM: cp Exam Order Date: 10/30/2018 10:08 PM Ordering M.D.: Leonora Goins MD PROCEDURE: [...] MD Technologist: Janeen Dunbar Trnscrd Date/Time/By: 10/30/2018 (9652) : By: LeanneVTL Orig Print D/T: S: 10/30/2018 (1519) PAGE 1 Signed Report GLUBED 2018-10-12 11:21:00* Test Item Value Reference Range Interpretation Comments GLUBED (test code = GLUBED) 189 mg/dL 74-106 H Performed by certified auxiliary equipment operator at [facility] [id number] 10:37:00* Test Item Value Reference Range Interpretation Comments GLUBED (test code = GLUBED) 190 mg/dL 74-106 H Performed by certified auxiliary equipment operator at [facility] [id number] 21:08:00* Test Item Value Reference Range Interpretation Comments GLUBED (test code = GLUBED) 156 mg/dL 74-106 H Performed by certified auxiliary equipment operator at [facility] [id number] 16:01:00* Test Item Value Reference Range Interpretation Comments GLUBED (test code = GLUBED) 122 mg/dL 74-106 H Performed by certified auxiliary equipment operator at [facility] [id number] 12:56:00* Test Item Value Reference Range Interpretation Comments GLUBED (test code = GLUBED) 173 mg/dL 74-106 H Performed by certified auxiliary equipment operator at [facility] [id number] 07:28:00* Test Item Value Reference Range Interpretation Comments GLUBED (test code = GLUBED) 221 mg/dL 74-106 H Performed by certified auxiliary equipment operator at [facility] [id number] 20:54:00* Test Item Value Reference Range Interpretation Comments GLUBED (test code = GLUBED) 261 mg/dL 74-106 H Performed by certified auxiliary equipment operator at [facility] [id number] 15:03:00* Test Item Value Reference Range Interpretation Comments GLUBED (test code = GLUBED) 167 mg/dL 74-106 H Performed by certified auxiliary equipment operator at [facility] [id number] 11:23:00* Test Item Value Reference Range Interpretation Comments GLUBED (test code = GLUBED) 206 mg/dL 74-106 H Performed by certified auxiliary equipment operator at [facility] BASIC METABOLIC [id number] 07:57:00* Test Item Value Reference Range Interpretation [...] code = CA) 8.5 mg/dL 8.5-10.1 N [id number] 07:29:00* Test Item Value Reference Range Interpretation Comments GLUBED (test code = GLUBED) 239 mg/dL 74-106 H Performed by certified auxiliary equipment operator at [facility] [id number] 05:00:00* Test Item Value Reference Range Interpretation Comments GLUBED (test code = GLUBED) 234 mg/dL 74-106 H Performed by certified auxiliary equipment operator at [facility] [id number] 20:10:00* Test Item Value Reference Range Interpretation Comments GLUBED (test code = GLUBED) 204 mg/dL 74-106 H Performed by certified auxiliary equipment operator at [facility] [id number] 17:08:00* Test Item Value Reference Range Interpretation Comments GLUBED (test code = GLUBED) 243 mg/dL 74-106 H Performed by certified auxiliary equipment operator at [facility] T4 [id number] 14:42:00* Test Item Value Reference Range Interpretation Comments T4 FREE (test code = T4F) 7.60 ng/dL 0.76-1.46 H THYROID STIMULATING [id number] 14:42:00* Test Item Value Reference Range Interpretation Comments THYROID STIMULATING HORMONE (test code = TSH) 0.812 uIU/mL 0.36-3.7 4 N TSH REFERENCE RANGES: EUTHYROID: 0.35 - 4.3 mIU/mL HYPO : > 5.5 mIU/mL HYPER : < 0.35 mIU/mL T4 [id number] 14:03:00* Test Item Value Reference Range Interpretation Comments T4 FREE (test code = T4F) ng/dL 0.76-1.46 THYROID STIMULATING [id number] 14:03:00* Test Item Value Reference Range Interpretation Comments THYROID STIMULATING HORMONE (test code = TSH) 0.812 uIU/mL 0.36-3.7 4 N TSH REFERENCE RANGES: EUTHYROID: 0.35 - 4.3 mIU/mL HYPO : > 5.5 mIU/mL HYPER : < 0.35 mIU/mL [id number] 12:01:00* Test Item Value Reference Range Interpretation Comments GLUBED (test code = GLUBED) 232 mg/dL 74-106 H Performed by certified auxiliary equipment operator at [facility] [id number] 07:31:00* Test Item Value Reference Range Interpretation Comments GLUBED (test code = GLUBED) 253 mg/dL 74-106 H Performed by certified auxiliary equipment operator at [facility] BASIC METABOLIC [id number] 05:59:00* Test Item Value Reference Range Interpretation [...] CA) 8.4 mg/dL 8.5-10.1 L BASIC METABOLIC [id number] 05:56:00* Test Item Value Reference Range Interpretation [...] CALCIUM (test code = CA) mg/dL 8.5-10.1 [id number] 03:37:00* Test Item Value Reference Range Interpretation Comments GLUBED (test code = GLUBED) 302 mg/dL 74-106 H Performed by certified auxiliary equipment operator at [facility] T4 [id number] 20:00:00* Test Item Value Reference Range Interpretation Comments T4 FREE (test code = T4F) 0.97 ng/dL 0.76-1.46 N THYROID STIMULATING [id number] 20:00:00* Test Item Value Reference Range Interpretation Comments THYROID STIMULATING HORMONE (test code = TSH) 0.336 uIU/mL 0.36-3.7 4 L TSH REFERENCE RANGES: EUTHYROID: 0.35 - 4.3 mIU/mL HYPO : > 5.5 mIU/mL HYPER : < 0.35 mIU/mL [id number] 19:59:00* Test Item Value Reference Range Interpretation Comments GLYCOSYLATED HEMOGLOBIN (HA1C) (test code = GLYHGB) 9.7 % HbA1 4. 8-6.0 H ESTIMATED AVERAGE GLUCOSE (test code = EAG) 232 MG/DL [id number] 19:43:00* Test Item Value Reference Range Interpretation Comments GLUBED (test code = GLUBED) 301 mg/dL 74-106 H Performed by certified auxiliary equipment operator at [facility] [id number] 17:38:00* Test Item Value Reference Range Interpretation Comments GLUBED (test code = GLUBED) 242 mg/dL 74-106 H Performed by certified auxiliary equipment operator at [facility] [id number] 13:43:00* Test Item Value Reference Range Interpretation Comments TROPONIN-I (test code = TROPI) <0.015 ng/mL 0-0.045 N COMMENTS TO SENIOR WINDOWS ADMINISTRATOR: COLLECT 3 HOURS AFTER PREVIOUS [id number] 13:19:00* Test Item Value Reference Range Interpretation Comments GLUBED (test code = GLUBED) 243 mg/dL 74-106 H Performed by certified auxiliary equipment operator at [facility] [id number] 10:44:00* Test Item Value Reference Range Interpretation Comments TROPONIN-I (test code = TROPI) <0.015 ng/mL 0-0.045 N COMMENTS TO SENIOR WINDOWS ADMINISTRATOR: COLLECT 3 HOURS AFTER PREVIOUS [id number] 08:17:00* Test Item Value Reference Range Interpretation Comments GLUBED (test code = GLUBED) 164 mg/dL 74-106 H Performed by certified auxiliary equipment operator at [facility] BASIC METABOLIC [id number] 08:09:00* Test Item Value Reference Range Interpretation [...] mg/dL 74-106 LL Re sults called to [id number] by V.LAB.TOMÁSB 10/08/18 0807Critical results verified and [...] CA) 8.5 mg/dL 8.5-10.1 N HEPATIC FUNCTION FJQVE1519-39-95 08:09:00* Test Item Value Reference Range Interpretation [...] reference range due to change in reagent. VNGIUY8210-59-77 08:09:00* Test Item Value Reference Range Interpretation Comments LIPASE (test code = LIP) 70 U/L 73.0-393.0 L LIQLUBAQ-I9890-80-18 08:09:00* Test Item Value Reference Range Interpretation [...] into account the patients history. B-TYPE NATRIURETIC RTJKONQ4880-10-58 06:52:00* Test Item Value Reference Range Interpretation Comments B-TYPE NATRIURETIC PEPTIDE (test code = BNP) 10.07 pgram/mL 0-100 N QLSFEG3144-24-94 06:43:00* Test Item Value Reference Range Interpretation Comments GLUBED (test code = GLUBED) 36 mg/dL 74-106 LL Performed by certified auxiliary equipment operator at [facility] URINALYSIS STDYQWOD1607-87-74 06:19:00* Test Item Value Reference Range Interpretation [...] FEW #/LPF FEW Urine Source? Clean CatchLACTIC CRLM3642-91-11 06:15:00* Test Item Value Reference Range Interpretation Comments LACTIC ACID (test code = LACT) 0.9 mmol/L 0.4-1.9 N - XR CHEST 1 J5320-51-60 05:44:00 FAX: [facility], [place]: B St: REG Name: KALYANI CATES [facility] : [birth year] Age/S: 63/F [address] [facility] Unit #: [id number] Loc: [place] [address] Phys: Elena Cedeño MD Acct: [id number] Dis Date: Status: REG ER PHONE #: [phone] Exam Date: 10/08/2018 0531 FAX #: [phone] Reason: CHEST PAIN EXAMS: CPT CODE: [id number] XR CHEST 1 V 67724 HISTORY: Chest pain. Location: C3 COMPARISON:09/18/2017 FINDINGS: [...] Festus XC2 Orig Print D/T: S: 10/08/2018 (0562) PAGE 1 Signed Report PROTHROMBIN SHAL2301-02-70 05:38:00* Test Item Value Reference Range Interpretation [...] (2.5-3.5) IS PATIENT ON ANTICOAGULANTS? NTHROMBOPLASTIN TIME PTJJYRS6317-51-08 05:38:00* Test Item Value Reference Range Interpretation Comments THROMBOPLASTIN TIME PARTIAL (test code = PTT) 32.9 seconds 25.0-36. 5 N IS PATIENT ON ANTICOAGULANTS? XV-TRFFR0795-78-18 05:38:00* Test Item Value Reference Range Interpretation [...] - IS PATIENT ON ANTICOAGULANTS? NCBC W/O RDHX4393-97-09 05:27:00* Test Item Value Reference Range Interpretation [...] MPV) 10.6 fL 6.7-11.0 N ARTERIAL BLOOD AIK2526-03-97 05:25:00* Test Item Value Reference Range Interpretation [...] 16.4 % vol 18.0-22.0 L CBC W/O IKNX2052-07-20 05:20:00* Test Item Value Reference Range Interpretation [...] VOLUME (test code = MPV) fL 6.7-11.0 CQJFEU4971-68-05 05:06:00* Test Item Value Reference Range Interpretation Comments GLUBED (test code = GLUBED) 73 mg/dL 74-106 L Performed by certified auxiliary equipment operator at [facility] FOREARM RIGHT 2 UKFB2054-80-68 20:47:00 [place] [address] Patient Name: KALYANI TALAVERA MR #: [id number] : 1955 Age/Sex: 63/F Req #: [id number] Adm Physician: Ordered by: FLO TOLBERT MD Report #: [id number] Location: ER Room/Bed: Procedure: [id number] DX /FOREARM RIGHT 2 VIEW Exam Date: [...] PM Dictated By: CHRISTINE TRAN MD, MD Transcribed By: JIM on 07/30/18 2 049 COPY TO: FLO TOLBERT MD Bedside Rgzvyux3338-15-91 14:02:00 * Test Item Value Reference Range Interpretation Comments Bedside Glucose (test code = 08933-2) 68 70-120 L Meter ID: [id number] [facility] 2018-[facility]-11 14:02:00* Test Item Value Reference Range Interpretation Comments Bedside Glucose (test code = 43000-0) 68 70-120 L Meter ID: [id number] Glucose 2018-07-11 14:02:00* Test Item Value Reference Range Interpretation Comments Bedside Glucose (test code = 99762-6) 68 70-120 L Meter ID: [id number]-Type Natriuretic Hetlydb7230-05-58 12:44:00* Test Item Value Reference Range Interpretation Comments B-Type Natriuretic Peptide (test code = 99268-0) 43.1 0-100 [facility]B-Type Natriuretic Ycfsumk4101-91-03 12:44:00* Test Item Value Reference Range Interpretation Comments B-Type Natriuretic Peptide (test code = 90119-6) 43.1 0-100 [facility]HealthCT MAXIO FAC/PARANAS TQ1428-39-59 12:32:00 [facility] [address] [place] [address] Patient Name: KALYANI TALAVERA MR #: [id number] : 1955 Age/Sex: 63/F Req #: [id number] Adm Physician: Ordered by: ELIESER DAWSON MD Report #: [id number] Location: ER Room/Bed: Procedure: [id number] CT/CT MAXIO FAC/PARANAS WO Exam Date: 07/11/18 [...] COPY TO: ELIESER DAWSON MD CT BRAIN WH3022-30-49 12:26:00 [place] [address] Patient Name: KALYANI TALAVERA MR #: [id number] : 1955 Age/Sex: 63/F Req #: [id number] Adm Physician: Ordered by: ELIESER DAWSON MD Report #: [id number] Location: ER Room/Bed: Procedure: [id number] CT/CT BRAIN WO Exam Date: 07/11/18 Exam [...] COPY TO: ELIESER DAWSON MD Lactic Acid Srwgh5228-10-24 12:24:00* Test Item Value Reference Range Interpretation Comments Lactic Acid Level (test code = Lactic Acid Level) 7.1 4.5- 19.8 [facility]HealthLactic Acid Vjozl0735-29-37 12:24:00* Test Item Value Reference Range Interpretation Comments Lactic Acid Level (test code = Lactic Acid Level) 7.1 4.5- 19.8 [facility]HealthLactic Acid Qddun0187-72-08 12:24:00* Test Item Value Reference Range Interpretation Comments Lactic Acid Level (test code = Lactic Acid Level) 7.1 4.5- 19.8 [facility] Hqarf5710-49-15 12:24:00* Test Item Value Reference Range Interpretation Comments Lactic Acid Level (test code = Lactic Acid Level) 7.1 4.5- 19.8 [facility] Nvxoc2006-24-58 12:24:00* Test Item Value Reference Range Interpretation Comments Lactic Acid Level (test code = Lactic Acid Level) 7.1 4.5- 19.8 [facility]HealthLactic Acid Ieedf5889-56-18 12:24:00* Test Item Value Reference Range Interpretation Comments Lactic Acid Level (test code = Lactic Acid Level) 7.1 4.5- 19.8 [facility]HealthLactic Acid Yohir3740-19-52 12:24:00* Test Item Value Reference Range Interpretation Comments Lactic Acid Level (test code = Lactic Acid Level) 7.1 4.5- 19.8 [facility]HealthLactic Acid Rnpay3108-59-38 12:24:00* Test Item Value Reference Range Interpretation Comments Lactic Acid Level (test code = Lactic Acid Level) 7.1 4.5- 19.8 [facility]HealthLactic Acid Jtsfu2191-25-99 12:24:00* Test Item Value Reference Range Interpretation Comments Lactic Acid Level (test code = Lactic Acid Level) 7.1 4.5- 19.8 [facility]HealthLactic Acid Vavtt7964-57-30 12:24:00* Test Item Value Reference Range Interpretation Comments Lactic Acid Level (test code = Lactic Acid Level) 7.1 4.5- 19.8 [facility]HealthCreatine Kinase HW3625-03-07 12:17:00* Test Item Value Reference Range Interpretation Comments Creatine Kinase MB (test code = 56331-9) 2.60 0-5.0 [facility]ern I5988-47-36 12:17:00* Test Item Value Reference Range Interpretation Comments Troponin I (test code = YSP7665) < 0.001 0-0.300 [facility]HealthCreatine Kinase WZ8202-09-73 12:17:00* Test Item Value Reference Range Interpretation Comments Creatine Kinase MB (test code = 80653-1) 2.60 0-5.0 [facility] W0000-72-78 12:17:00* Test Item Value Reference Range Interpretation Comments Troponin I (test code = YIM7651) < 0.001 0-0.300 [facility]HealthActivated Partial Thromboplast Time 2018-07-11 12:09:00* Test Item Value Reference Range Interpretation Comments Activated Partial Thromboplast Time (test code = 87388-4) 20.8 23.8-35.5 L [facility] Wrvcj2770-33-55 12:09:00* Test Item Value Reference Range Interpretation Comments Sodium Level (test code = 2951-2) 141 136-145 [facility]Potassium Gdvxx3343-63-55 12:09:00* Test Item Value Reference Range Interpretation Comments Potassium Level (test code = 2823-3) 4.5 3.5-5.1 [facility]HealthChloride Ggook4441-64-41 12:09:00* Test Item Value Reference Range Interpretation Comments Chloride Level (test code = 2075-0) 110 98-107 H AdventHealthCarbon Dioxide Ujnpk1367-54-77 12:09:00* Test Item Value Reference Range Interpretation Comments Carbon Dioxide Level (test code = 2028-9) 22 22-29 [facility]HealthAnion Yir2715-82-63 12:09:00* Test Item Value Reference Range Interpretation Comments Anion Gap (test code = 23625-9) 13.5 8-16 [facility]HealthBlood Urea Xjvaqsyj4896-29-65 12:09:00* Test Item Value Reference Range Interpretation Comments Blood Urea Nitrogen (test code = 3094-0) 28 7-26 H [facility]HealthCreatinine2018-12-19 12:09:00* Test Item Value Reference Range Interpretation Comments Creatinine (test code = 2160-0) 0.92 0.57-1.11 [facility]HealthBUN/Creatinine Tkspj6103-68-50 12:09:00* Test Item Value Reference Range Interpretation Comments BUN/Creatinine Ratio (test code = 3097-3) 30 6-25 H AdventHealthEstimat Glomerular Filtration Rate 2018-07-11 12:09:00* Test Item Value Reference Range Interpretation Comments Estimat Glomerular Filtration Rate (test code = 265937499) > 60 >60 Ranges were taken from the National Kidney Disease Education Program and the [facility] literature.Reference ranges:60 or greater: Knenas86-11 ( for 3 consecutive months): Chronic kidney disease 15 or less: Kidney failureAdventHealthGlucose Aiomd3439-98-86 12:09:00* Test Item Value Reference Range Interpretation Comments Glucose Level (test code = DEP4276) 62 74-118 L [facility]HealthCalcium Tnazg2590-64-13 12:09:00* Test Item Value Reference Range Interpretation Comments Calcium Level (test code = 23511-2) 9.2 8.4-10.2 [facility]HealthTotal Pmerkcfah3941-86-59 12:09:00* Test Item Value Reference Range Interpretation Comments Total Bilirubin (test code = 1975-2) 0.3 0.2-1.2 AdventHealthAspartate Amino Transf (AST/SGOT) 2018-07-11 12:09:00* Test Item Value Reference Range Interpretation Comments Aspartate Amino Transf (AST/SGOT) (test code = Aspartate Amino Transf (AST/SGOT)) 17 5-34 [facility]HealthAlanine Aminotransferase (ALT/SGPT) 2018-07-11 12:09:00* Test Item Value Reference Range Interpretation Comments Alanine Aminotransferase (ALT/SGPT) (test code = 1742-6) 18 0-55 AdventHealthTotal Omridpo7419-85-50 12:09:00* Test Item Value Reference Range Interpretation Comments Total Protein (test code = 2885-2) 6.9 6.5-8.1 [facility]HealthAlbumin2018-12-19 12:09:00* Test Item Value Reference Range Interpretation Comments Albumin (test code = 1751-7) 3.6 3.5-5.0 [facility]HealthGlobulin2018-12-19 12:09:00* Test Item Value Reference Range Interpretation Comments Globulin (test code = 35774-9) 3.3 2.3-3.5 AdventHealthAlbumin/Globulin Wlgzz5139-16-41 12:09:00 * Test Item Value Reference Range Interpretation Comments Albumin/Globulin Ratio (test code = 1759-0) 1.1 0.8-2.0 AdventHealthAlkaline Xlvlbjsmexd7180-99-37 12:09:00* Test Item Value Reference Range Interpretation Comments Alkaline Phosphatase (test code = 6768-6) 55 40-150 [facility]HealthCreatine Izusam2275-07-46 12:09:00* Test Item Value Reference Range Interpretation Comments Creatine Kinase (test code = 2157-6) 71 29-168 [facility]HealthActivated Partial Thromboplast Time 2018-07-11 12:09:00* Test Item Value Reference Range Interpretation Comments Activated Partial Thromboplast Time (test code = 68251-6) 20.8 23.8-35.5 L [facility] Rgmrs3359-27-91 12:09:00* Test Item Value Reference Range Interpretation Comments Sodium Level (test code = 2951-2) 141 136-145 [facility]HealthPotassium Orqnn9805-13-54 12:09:00* Test Item Value Reference Range Interpretation Comments Potassium Level (test code = 2823-3) 4.5 3.5-5.1 [facility]HealthChloride Yxoea9610-01-57 12:09:00* Test Item Value Reference Range Interpretation Comments Chloride Level (test code = 2075-0) 110 98-107 H AdventHealthCarbon Dioxide Nrewk6648-44-98 12:09:00* Test Item Value Reference Range Interpretation Comments Carbon Dioxide Level (test code = 2028-9) 22 22-29 AdventHealthAnion Gwi2241-23-18 12:09:00* Test Item Value Reference Range Interpretation Comments Anion Gap (test code = 59712-8) 13.5 8-16 [facility]HealthBlood Urea Amnnhkar3028-32-41 12:09:00* Test Item Value Reference Range Interpretation Comments Blood Urea Nitrogen (test code = 3094-0) 28 7-26 H [facility]HealthCreatinine2018-12-19 12:09:00* Test Item Value Reference Range Interpretation Comments Creatinine (test code = 2160-0) 0.92 0.57-1.11 [facility]HealthBUN/Creatinine Pvbty9568-70-48 12:09:00* Test Item Value Reference Range Interpretation Comments BUN/Creatinine Ratio (test code = 3097-3) 30 6-25 H [facility]HealthEstimat Glomerular Filtration Rate 2018-07-11 12:09:00* Test Item Value Reference Range Interpretation Comments Estimat Glomerular Filtration Rate (test code = 168261969) > 60 >60 Ranges were taken from the National Kidney Disease Education Program and the [facility]ney Foundation literature.Reference ranges:60 or greater: Dcuzfs35-75 ( for 3 consecutive months): Chronic kidney disease 15 or less: Kidney failureCHI Methodist Mansfield Medical CenterGlucose Rrwms5406-58-96 12:09:00* Test Item Value Reference Range Interpretation Comments Glucose Level (test code = WSG5884) 62 74-118 L [facility]HealthCalcium Xzept0474-00-99 12:09:00* Test Item Value Reference Range Interpretation Comments Calcium Level (test code = 34986-9) 9.2 8.4-10.2 [facility]HealthTotal Cuimqynmq5106-69-02 12:09:00* Test Item Value Reference Range Interpretation Comments Total Bilirubin (test code = 1975-2) 0.3 0.2-1.2 [facility]HealthAspartate Amino Transf (AST/SGOT) 2018-07-11 12:09:00* Test Item Value Reference Range Interpretation Comments Aspartate Amino Transf (AST/SGOT) (test code = Aspartate Amino Transf (AST/SGOT)) 17 5-34 [facility]HealthAlanine Aminotransferase (ALT/SGPT) 2018-07-11 12:09:00* Test Item Value Reference Range Interpretation Comments Alanine Aminotransferase (ALT/SGPT) (test code = 1742-6) 18 0-55 [facility]HealthTotal Svxggyf3894-58-55 12:09:00* Test Item Value Reference Range Interpretation Comments Total Protein (test code = 2885-2) 6.9 6.5-8.1 [facility]HealthAlbumin2018-12-19 12:09:00* Test Item Value Reference Range Interpretation Comments Albumin (test code = 1751-7) 3.6 3.5-5.0 [facility]HealthGlobulin2018-12-19 12:09:00* Test Item Value Reference Range Interpretation Comments Globulin (test code = 55342-3) 3.3 2.3-3.5 AdventHealthAlbumin/Globulin Dziyu3407-74-60 12:09:00 * Test Item Value Reference Range Interpretation Comments Albumin/Globulin Ratio (test code = 1759-0) 1.1 0.8-2.0 [facility]HealthAlkaline Vucfnlkexxk6627-07-45 12:09:00* Test Item Value Reference Range Interpretation Comments Alkaline Phosphatase (test code = 6768-6) 55 40-150 [facility]HealthCreatine Dosgmd7210-22-20 12:09:00* Test Item Value Reference Range Interpretation Comments Creatine Kinase (test code = 2157-6) 71 29-168 [facility]HealthActivated Partial Thromboplast Time 2018-07-11 12:09:00* Test Item Value Reference Range Interpretation Comments Activated Partial Thromboplast Time (test code = 13105-6) 20.8 23.8-35.5 L [facility]HealthProthrombin Lwvs6341-95-20 11:59:00* Test Item Value Reference Range Interpretation Comments Prothrombin Time (test code = 5902-2) 13.5 11.9-14.5 AdventHealthProthromb Time International Ratio 2018-07-11 11:59:00* Test Item Value Reference Range Interpretation Comments Prothromb Time International Ratio (test code = 6301-6) 0.95 Oral Anticoagulant Therapy INR Values:1. Low Intensity Therapy 1.5 - 2.02 . Moderate Intensity Therapy 2.0 - 3.03. High Intensity Therapy(1) 2.5 - 3. 54. High Intensity Therapy(2) 3.0 - 4.05. Panic Value INR > 5.0 [facility]HealthProthrombin Ampi7969-22-45 11:59:00* Test Item Value Reference Range Interpretation Comments Prothrombin Time (test code = 5902-2) 13.5 11.9-14.5 AdventHealthProthromb Time International Ratio 2018-07-11 11:59:00* Test Item Value Reference Range Interpretation Comments Prothromb Time International Ratio (test code = 6301-6) 0.95 Oral Anticoagulant Therapy INR Values:1. Low Intensity Therapy 1.5 - 2.02 . Moderate Intensity Therapy 2.0 - 3.03. High Intensity Therapy(1) 2.5 - 3. 54. High Intensity Therapy(2) 3.0 - 4.05. Panic Value INR > 5.0 [facility]HealthProthrombin Xvem7054-69-30 11:59:00* Test Item Value Reference Range Interpretation Comments Prothrombin Time (test code = 5902-2) 13.5 11.9-14.5 [facility]HealthProthromb Time International Ratio 2018-07-11 11:59:00* Test Item Value Reference Range Interpretation Comments Prothromb Time International Ratio (test code = 6301-6) 0.95 Oral Anticoagulant Therapy INR Values:1. Low Intensity Therapy 1.5 - 2.02 . Moderate Intensity Therapy 2.0 - 3.03. High Intensity Therapy(1) 2.5 - 3. 54. High Intensity Therapy(2) 3.0 - 4.05. Panic Value INR > 5.0 [facility]HealthWhite Blood Fxcjb7102-42-98 11:54:00* Test Item Value Reference Range Interpretation Comments White Blood Count (test code = 6690-2) 6.79 4.8-10.8 AdventHealthRed Blood Qrgnn0605-94-73 11:54:00* Test Item Value Reference Range Interpretation Comments Red Blood Count (test code = 789-8) 4.38 3.6-5.1 [facility]HealthHemoglobin2018-12-19 11:54:00* Test Item Value Reference Range Interpretation Comments Hemoglobin (test code = 05960-6) 11.4 12.0-16.0 L [facility]HealthHematocrit2018-12-19 11:54:00* Test Item Value Reference Range Interpretation Comments Hematocrit (test code = 4544-3) 38.1 34.2-44.1 [facility]HealthMean Corpuscular Fcwvza8824-58-95 11:54:00* Test Item Value Reference Range Interpretation Comments Mean Corpuscular Volume (test code = 787-2) 87.0 81-99 [facility]Mean Corpuscular Obdefgptau7382-42-34 11:54:00* Test Item Value Reference Range Interpretation Comments Mean Corpuscular Hemoglobin (test code = 785-6) 26.0 28-32 L [facility]HealthMean Corpuscular Hemoglobin Concent 2018-07-11 11:54:00* Test Item Value Reference Range Interpretation Comments Mean Corpuscular Hemoglobin Concent (test code = 786-4) 29.9 31-35 L [facility]HealthRed Cell Distribution Jzkxp9778-38-45 11:54:00* Test Item Value Reference Range Interpretation Comments Red Cell Distribution Width (test code = 08275-6) 16.0 11.7 -14.4 H [facility]HealthPlatelet Fmqls4798-41-74 11:54:00* Test Item Value Reference Range Interpretation Comments Platelet Count (test code = 777-3) 204 140-360 [facility]HealthNeutrophils (%) (Auto)2018-07-11 11:54:00 * Test Item Value Reference Range Interpretation Comments Neutrophils (%) (Auto) (test code = 37835-4) 76.3 38.7-80.0 [facility]HealthLymphocytes (%) (Auto)2018-07-11 11:54:00 * Test Item Value Reference Range Interpretation Comments Lymphocytes (%) (Auto) (test code = 736-9) 10.3 18.0-39.1 L [facility]HealthMonocytes (%) (Auto)2018-07-11 11:54:00* Test Item Value Reference Range Interpretation Comments Monocytes (%) (Auto) (test code = 5905-5) 5.9 4.4-11.3 [facility]HealthEosinophils (%) (Auto)2018-07-11 11:54:00 * Test Item Value Reference Range Interpretation Comments Eosinophils (%) (Auto) (test code = 713-8) 2.7 0.0-6.0 [facility]Basophils (%) (Auto)2018-07-11 11:54:00* Test Item Value Reference Range Interpretation Comments Basophils (%) (Auto) (test code = 706-2) 1.0 0.0-1.0 [facility]HealthIM GRANULOCYTES %2018-07-11 11:54:00* Test Item Value Reference Range Interpretation Comments IM GRANULOCYTES % (test code = IM GRANULOCYTES %) 3.8 0.0- 1.0 H [facility]HealthNeutrophils # (Auto)2018-07-11 11:54:00* Test Item Value Reference Range Interpretation Comments Neutrophils # (Auto) (test code = 751-8) 5.2 2.1-6.9 [facility]Lymphocytes # (Auto)2018-07-11 11:54:00* Test Item Value Reference Range Interpretation Comments Lymphocytes # (Auto) (test code = 42299-0) 0.7 1.0-3.2 L [facility]HealthMonocytes # (Auto)2018-07-11 11:54:00* Test Item Value Reference Range Interpretation Comments Monocytes # (Auto) (test code = 742-7) 0.4 0.2-0.8 [facility]HealthEosinophils # (Auto)2018-07-11 11:54:00* Test Item Value Reference Range Interpretation Comments Eosinophils # (Auto) (test code = 711-2) 0.2 0.0-0.4 [facility]Basophils # (Auto)2018-07-11 11:54:00* Test Item Value Reference Range Interpretation Comments Basophils # (Auto) (test code = 704-7) 0.1 0.0-0.1 [facility]HealthAbsolute Immature Granulocyte (auto 2018-07-11 11:54:00* Test Item Value Reference Range Interpretation Comments Absolute Immature Granulocyte (auto (joseph t code = Absolute Immature Granulocyte (auto) 0.26 0-0.1 H [facility]HealthWhite Blood Rbfih4035-35-28 11:54:00* Test Item Value Reference Range Interpretation Comments White Blood Count (test code = 6690-2) 6.79 4.8-10.8 [facility]HealthRed Blood Dhvvy1130-03-27 11:54:00* Test Item Value Reference Range Interpretation Comments Red Blood Count (test code = 789-8) 4.38 3.6-5.1 [facility]HealthHemoglobin2018-12-19 11:54:00* Test Item Value Reference Range Interpretation Comments Hemoglobin (test code = 46993-2) 11.4 12.0-16.0 L [facility]HealthHematocrit2018-12-19 11:54:00* Test Item Value Reference Range Interpretation Comments Hematocrit (test code = 4544-3) 38.1 34.2-44.1 [facility]HealthMean Corpuscular Urfzik2273-00-42 11:54:00* Test Item Value Reference Range Interpretation Comments Mean Corpuscular Volume (test code = 787-2) 87.0 81-99 [facility]Mean Corpuscular Dumsrkxztw1722-49-90 11:54:00* Test Item Value Reference Range Interpretation Comments Mean Corpuscular Hemoglobin (test code = 785-6) 26.0 28-32 L [facility]HealthMean Corpuscular Hemoglobin Concent 2018-07-11 11:54:00* Test Item Value Reference Range Interpretation Comments Mean Corpuscular Hemoglobin Concent (test code = 786-4) 29.9 31-35 L [facility]HealthRed Cell Distribution Xslia7925-04-23 11:54:00* Test Item Value Reference Range Interpretation Comments Red Cell Distribution Width (test code = 69726-7) 16.0 11.7 -14.4 H [facility]HealthPlatelet Itjqt0002-67-16 11:54:00* Test Item Value Reference Range Interpretation Comments Platelet Count (test code = 777-3) 204 140-360 [facility]HealthNeutrophils (%) (Auto)2018-07-11 11:54:00 * Test Item Value Reference Range Interpretation Comments Neutrophils (%) (Auto) (test code = 23390-3) 76.3 38.7-80.0 [facility]HealthLymphocytes (%) (Auto)2018-07-11 11:54:00 * Test Item Value Reference Range Interpretation Comments Lymphocytes (%) (Auto) (test code = 736-9) 10.3 18.0-39.1 L [facility]HealthMonocytes (%) (Auto)2018-07-11 11:54:00* Test Item Value Reference Range Interpretation Comments Monocytes (%) (Auto) (test code = 5905-5) 5.9 4.4-11.3 [facility]HealthEosinophils (%) (Auto)2018-07-11 11:54:00 * Test Item Value Reference Range Interpretation Comments Eosinophils (%) (Auto) (test code = 713-8) 2.7 0.0-6.0 [facility]Basophils (%) (Auto)2018-07-11 11:54:00* Test Item Value Reference Range Interpretation Comments Basophils (%) (Auto) (test code = 706-2) 1.0 0.0-1.0 [facility]HealthIM GRANULOCYTES %2018-07-11 11:54:00* Test Item Value Reference Range Interpretation Comments IM GRANULOCYTES % (test code = IM GRANULOCYTES %) 3.8 0.0- 1.0 H [facility]HealthNeutrophils # (Auto)2018-07-11 11:54:00* Test Item Value Reference Range Interpretation Comments Neutrophils # (Auto) (test code = 751-8) 5.2 2.1-6.9 [facility]Lymphocytes # (Auto)2018-07-11 11:54:00* Test Item Value Reference Range Interpretation Comments Lymphocytes # (Auto) (test code = 32625-0) 0.7 1.0-3.2 L [facility]HealthMonocytes # (Auto)2018-07-11 11:54:00* Test Item Value Reference Range Interpretation Comments Monocytes # (Auto) (test code = 742-7) 0.4 0.2-0.8 [facility]HealthEosinophils # (Auto)2018-07-11 11:54:00* Test Item Value Reference Range Interpretation Comments Eosinophils # (Auto) (test code = 711-2) 0.2 0.0-0.4 [facility]Basophils # (Auto)2018-07-11 11:54:00* Test Item Value Reference Range Interpretation Comments Basophils # (Auto) (test code = 704-7) 0.1 0.0-0.1 [facility]HealthAbsolute Immature Granulocyte (auto 2018-07-11 11:54:00* Test Item Value Reference Range Interpretation Comments Absolute Immature Granulocyte (auto (joseph t code = Absolute Immature Granulocyte (auto) 0.26 0-0.1 H [facility]HealthCT CERVICAL SPINE GF5489-41-37 11:47:00 [place] [address] Patient Name: KALYANI TALAVERA MR #: [id number] : 1955 Age/Sex: 63/F Req #: [id number] Adm Physician: Ordered by: ELIESER DAWSON MD Report #: [id number] Location: ER Room/Bed: Procedure: [id number] CT/CT CERVICAL SPINE WO Exam Date: 07/11/18 [...] 1154 COPY TO: ELIESER DAWSON MD Bedside Vfophgt1765-93-61 11:57:00* Test Item Value Reference Range Interpretation Comments Bedside Glucose (test code = 23035-4) 329 70-120 H Meter ID: [id number] Christi [facility] Doctors Regionalodium Level 2018-07-03 09:09:00* Test Item Value Reference Range Interpretation Comments Sodium Level (test code = 2951-2) 132 136-145 L [facility]assium Agybo5307-68-21 09:09:00* Test Item Value Reference Range Interpretation Comments Potassium Level (test code = 2823-3) 4.6 3.5-5.1 [facility]Chloride Qllpk5289-62-57 09:09:00* Test Item Value Reference Range Interpretation Comments Chloride Level (test code = 2075-0) 95 98-107 L [facility]Carbon Dioxide Mjxvf1226-70-39 09:09:00* Test Item Value Reference Range Interpretation Comments Carbon Dioxide Level (test code = 8-9) 24 22-29 [facility]Anion Txf4583-71-92 09:09:00* Test Item Value Reference Range Interpretation Comments Anion Gap (test code = 67147-6) 17.6 8-16 H [facility]Blood Urea Jsuasmki9256-84-73 09:09:00* Test Item Value Reference Range Interpretation Comments Blood Urea Nitrogen (test code = 3094-0) 52 7-26 H [facility]Creatinine2018-12-11 09:09:00* Test Item Value Reference Range Interpretation Comments Creatinine (test code = 2160-0) 1.72 0.57-1.11 H [facility]BUN/Creatinine Okisb0756-67-90 09:09:00* Test Item Value Reference Range Interpretation Comments BUN/Creatinine Ratio (test code = 3097-3) 30 6-25 H [facility]Estimat Glomerular Filtration Rate 2018-07-03 09:09:00* Test Item Value Reference Range Interpretation Comments Estimat Glomerular Filtration Rate (test code = 094561831) 30 >60 L Ranges were taken from the National Kidney Disease Education Program and the [facility] literature.Reference ranges:60 or greater: Xqarer16-32 ( for 3 consecutive months): Chronic kidney disease 15 or less: Kidney failureAdventHealthGlucose Hypel9109-79-00 09:09:00* Test Item Value Reference Range Interpretation Comments Glucose Level (test code = BZK9184) 218 74-118 H [facility]Calcium Dkbjd3886-05-13 09:09:00* Test Item Value Reference Range Interpretation Comments Calcium Level (test code = 23631-4) 9.1 8.4-10.2 [facility]Total Wooyespej7078-45-87 09:09:00* Test Item Value Reference Range Interpretation Comments Total Bilirubin (test code = 1975-2) 0.4 0.2-1.2 [facility]HealthAspartate Amino Transf (AST/SGOT) 2018-07-03 09:09:00* Test Item Value Reference Range Interpretation Comments Aspartate Amino Transf (AST/SGOT) (test code = Aspartate Amino Transf (AST/SGOT)) 9 5-34 [facility]Alanine Aminotransferase (ALT/SGPT) 2018-07-03 09:09:00* Test Item Value Reference Range Interpretation Comments Alanine Aminotransferase (ALT/SGPT) (test code = 1742-6) 12 0-55 [facility]Total Lydpbnq0727-06-79 09:09:00* Test Item Value Reference Range Interpretation Comments Total Protein (test code = 2885-2) 7.2 6.5-8.1 [facility]Albumin2018-12-11 09:09:00* Test Item Value Reference Range Interpretation Comments Albumin (test code = 1751-7) 3.4 3.5-5.0 L [facility]Globulin2018-12-11 09:09:00* Test Item Value Reference Range Interpretation Comments Globulin (test code = 97742-9) 3.8 2.3-3.5 H [facility]HealthAlbumin/Globulin Anqzk5952-95-75 09:09:00 * Test Item Value Reference Range Interpretation Comments Albumin/Globulin Ratio (test code = 1759-0) 0.9 0.8-2.0 [facility]Alkaline Cthkrsvghky8893-90-92 09:09:00* Test Item Value Reference Range Interpretation Comments Alkaline Phosphatase (test code = 6768-6) 59 40-150 [facility]CHEST SINGLE (NOT PORTABLE)2018-07-01 13:32:00 [place] [address] Patient Name: KALYANI TALAVERA MR #: [id number] : 1955 Age/Sex: 63/F Req #: [id number] Adm Physician: LUCILLE OLIVO MD Ordered by: BENJAMIN MASTERS MD Report #: [id number] Location: [facility] Room/Bed: [place] [address] Procedure: [id number] DX/CHEST SINGLE (NOT PORTABLE) Exam Date: 07/01/18 [...] COPY TO: BENJAMIN MASTERS MD Hemoglobin A1c Kffjunm4047-56-41 13:20:00* Test Item Value Reference Range Interpretation Comments Hemoglobin A1c Percent (test code = Hemoglobin A1c Percent) 8.4 4.0-7.0 H [facility]Hemoglobin A1c Jrudfdu4656-56-43 13:20:00 * Test Item Value Reference Range Interpretation Comments Hemoglobin A1c Percent (test code = Hemoglobin A1c Percent) 8.4 4.0-7.0 H [facility]Hemoglobin A1c Nmtkxkt6880-08-61 13:20:00 * Test Item Value Reference Range Interpretation Comments Hemoglobin A1c Percent (test code = Hemoglobin A1c Percent) 8.4 4.0-7.0 H [facility]HealthHemoglobin A1c Zoqekvc7328-94-19 13:20:00 * Test Item Value Reference Range Interpretation Comments Hemoglobin A1c Percent (test code = Hemoglobin A1c Percent) 8.4 4.0-7.0 H [facility]HealthVQ LUNG SCAN VENT YDXPRIFWK0625-35-88 16:24:00 [place] [address] [place] [address] Patient Name: KALYANI TALAVERA MR #: [id number] : 1955 Age/Sex: 63/F Req #: [id number] Adm Physician: LUCILLE OLIVO MD Ordered by: JACINDA BUSTILLOS MD Report #: [id number] Location: [facility] Room/Bed: [place] [address] Procedure: [id number] N M/VQ LUNG SCAN VENT PERFUSION Exam [...] COPY TO: JACINDA VILLAGOMEZ MD Creatine Kinase SZ9851-26-96 08:14:00* Test Item Value Reference Range Interpretation Comments Creatine Kinase MB (test code = 90258-5) 1.50 0-5.0 [facility]Troponin Z9236-90-92 08:14:00* Test Item Value Reference Range Interpretation Comments Troponin I (test code = NSA0585) < 0.001 0-0.300 [facility]Creatine Juaxay9435-80-99 08:07:00* Test Item Value Reference Range Interpretation Comments Creatine Kinase (test code = 2157-6) 61 29-168 [facility]HealthB-Type Natriuretic Fvcbsdj8865-64-23 07:10:00* Test Item Value Reference Range Interpretation Comments B-Type Natriuretic Peptide (test code = 97008-3) < 10.0 0-100 [facility]HealthWhite Blood Jspel3681-19-85 05:51:00* Test Item Value Reference Range Interpretation Comments White Blood Count (test code = 6690-2) 6.29 4.8-10.8 [facility]HealthRed Blood Fzivr1051-81-98 05:51:00* Test Item Value Reference Range Interpretation Comments Red Blood Count (test code = 789-8) 4.36 3.6-5.1 [facility]Hemoglobin2018-12-06 05:51:00* Test Item Value Reference Range Interpretation Comments Hemoglobin (test code = 92212-3) 11.1 12.0-16.0 L [facility]Hematocrit2018-12-06 05:51:00* Test Item Value Reference Range Interpretation Comments Hematocrit (test code = 4544-3) 37.1 34.2-44.1 [facility]HealthMean Corpuscular Pyalfi5031-31-97 05:51:00* Test Item Value Reference Range Interpretation Comments Mean Corpuscular Volume (test code = 787-2) 85.1 81-99 [facility]Mean Corpuscular Cdtnggtwbf2591-35-45 05:51:00* Test Item Value Reference Range Interpretation Comments Mean Corpuscular Hemoglobin (test code = 785-6) 25.5 28-32 L [facility]HealthMean Corpuscular Hemoglobin Concent 2018-06-28 05:51:00* Test Item Value Reference Range Interpretation Comments Mean Corpuscular Hemoglobin Concent (test code = 786-4) 29.9 31-35 L [facility]HealthRed Cell Distribution Dhplh6493-13-38 05:51:00* Test Item Value Reference Range Interpretation Comments Red Cell Distribution Width (test code = 97767-7) 15.7 11.7 -14.4 H [facility]HealthPlatelet Vzknr2071-05-97 05:51:00* Test Item Value Reference Range Interpretation Comments Platelet Count (test code = 777-3) 162 140-360 [facility]HealthNeutrophils (%) (Auto)2018-06-28 05:51:00 * Test Item Value Reference Range Interpretation Comments Neutrophils (%) (Auto) (test code = 85657-2) 75.4 38.7-80.0 [facility]Lymphocytes (%) (Auto)2018-06-28 05:51:00 * Test Item Value Reference Range Interpretation Comments Lymphocytes (%) (Auto) (test code = 736-9) 13.0 18.0-39.1 L [facility]HealthMonocytes (%) (Auto)2018-06-28 05:51:00* Test Item Value Reference Range Interpretation Comments Monocytes (%) (Auto) (test code = 5905-5) 7.3 4.4-11.3 [facility]HealthEosinophils (%) (Auto)2018-06-28 05:51:00 * Test Item Value Reference Range Interpretation Comments Eosinophils (%) (Auto) (test code = 713-8) 2.7 0.0-6.0 [facility]Basophils (%) (Auto)2018-06-28 05:51:00* Test Item Value Reference Range Interpretation Comments Basophils (%) (Auto) (test code = 706-2) 1.0 0.0-1.0 [facility]HealthIM GRANULOCYTES %2018-06-28 05:51:00* Test Item Value Reference Range Interpretation Comments IM GRANULOCYTES % (test code = IM GRANULOCYTES %) 0.6 0.0- 1.0 [facility]HealthNeutrophils # (Auto)2018-06-28 05:51:00* Test Item Value Reference Range Interpretation Comments Neutrophils # (Auto) (test code = 751-8) 4.7 2.1-6.9 [facility]Lymphocytes # (Auto)2018-06-28 05:51:00* Test Item Value Reference Range Interpretation Comments Lymphocytes # (Auto) (test code = 69305-1) 0.8 1.0-3.2 L [facility]HealthMonocytes # (Auto)2018-06-28 05:51:00* Test Item Value Reference Range Interpretation Comments Monocytes # (Auto) (test code = 742-7) 0.5 0.2-0.8 [facility]Eosinophils # (Auto)2018-06-28 05:51:00* Test Item Value Reference Range Interpretation Comments Eosinophils # (Auto) (test code = 711-2) 0.2 0.0-0.4 [facility]Basophils # (Auto)2018-06-28 05:51:00* Test Item Value Reference Range Interpretation Comments Basophils # (Auto) (test code = 704-7) 0.1 0.0-0.1 [facility]HealthAbsolute Immature Granulocyte (auto 2018-06-28 05:51:00* Test Item Value Reference Range Interpretation Comments Absolute Immature Granulocyte (auto (joseph t code = Absolute Immature Granulocyte (auto) 0.04 0-0.1 [facility]HealthCHEST 2 KATQL8653-23-10 04:37:00 [facility] [address] [place] [address] Patient Name: KALYANI TALAVERA MR #: [id number] : 1955 Age/Sex: 63/F Req #: [id number] [facility] Physician: Ordered by: JACQUES JANE MD Report #: [id number] Location: ER Room/Bed: Procedure: 1205- 0011 DX/CHEST [...] on 06/27/18439 COPY TO: JACQUES HOOD MD WJFUXPG1485-78-85 13:15:00 RUN DATE: 06/21/18 [place] - Lab PAGE 1 RUN TIME: 1316 Specimen Inqui ry RUN USER: INTERFACE PATIENT: KALYANI TALAVERA ACCT #: [id number] [facility] U #: [id number] AGE/SX: 63/F ROOM: RE06/19/18REG DR: Kb Bradford MD : [birth year] BED: DIS: STATUS: [facility] TLOC: SPEC #: [id number] RECD: 06/20/18 STATUS: [facility] #: [id number] MARILEE: 06/19/18- SUBM DR: Kb Bradford MD ENTERED: 06/20/18 SP TYPE: STOMACH OTHR DR: Lucille Torres MDORDERED: GROSS COPIES TO: Lucille Nur MD [address] [place], [place] [id number] Kb Bradford Si, MD [address] [address] PROCEDURES: GROSS ( 06/21/18-1249) TISSUES: ANTRAL BIOPSY - H-PYLORI CLINICAL HIST ORY COLLECTION DATE: 06/19/18 DYSPHAGIA, HEARTBURN POST-OP DIAGNOSIS: HIATAL HERNIA, GASTRITIS FINAL DIAGNOSIS Stomach, antrum, biopsy: REACTIVE GASTROPATHY CONTROLLED GIEMSA STAIN NEGATIVE FOR HELICOBAC TER ORGANISMS NEGATIVE FOR MALIGNANCY MARYAM/sm D [address], [address] MACROSCOPIC The specimen is received in formalin, labeled with the lis ent's name, identified as "antrum bx", and consists of two gutierrez biopsy tissue m easuring 0.3 cm each, submitted for H E and Giemsa stains. GROSS PERFORM ED AT [facility] CONTINUED ON NEXT PAG E RUN DATE: 06/21/18 [place] - Lab PAGE 2 RUN TIME: 6 Specimen Inquiry RUN USER: INTERFACE SPEC #: [id number] PATIENT: KHANH TALAVERA #[id number] (Continued) MACROSCO PIC (Continued) [facility] [address] [place] [address] (P)[phone] MICROSCOPIC MICROSCOPIC PERFOR MED AT [facility] All of the stains, including any controls perfor med, stain appropriately. [facility] [address] [place] [address] (p)[phone] PERFORMING SITE Diagnosis performed at: [facility] [address] [place] [address] Signed SIGNATURE ON FILE Stacey Fuller 06/21/18 1315 END OF REPORT B-Type Natriuretic Axzsdjb4245-63-28 03:14:00* Test Item Value Reference Range Interpretation Comments B-Type Natriuretic Peptide (test code = 24639-9) 10.5 0-100 [facility]HealthCreatine Kinase GN9129-72-52 03:14:00* Test Item Value Reference Range Interpretation Comments Creatine Kinase MB (test code = 11238-7) 1.30 0-5.0 [facility]HealthTroponin W8764-68-40 03:14:00* Test Item Value Reference Range Interpretation Comments Troponin I (test code = ZWZ2936) -0.001 0-0.300 [facility]Bedside Xewjklj4978-79-07 03:04:00* Test Item Value Reference Range Interpretation Comments Bedside Glucose (test code = 49515-9) 291 70-120 H Meter ID: [id number] Level 2018-04-03 02:45:00* Test Item Value Reference Range Interpretation Comments Sodium Level (test code = 2951-2) 140 136-145 [facility]Potassium Mxgvf2316-28-80 02:45:00* Test Item Value Reference Range Interpretation Comments Potassium Level (test code = 2823-3) 3.8 3.5-5.1 [facility]HealthChloride Muywh0967-60-61 02:45:00* Test Item Value Reference Range Interpretation Comments Chloride Level (test code = 2075-0) 100 98-107 [facility]HealthCarbon Dioxide Dvwwd8487-70-61 02:45:00* Test Item Value Reference Range Interpretation Comments Carbon Dioxide Level (test code = 2028-9) 29 22-29 [facility]HealthAnion Fjz4639-73-67 02:45:00* Test Item Value Reference Range Interpretation Comments Anion Gap (test code = 80324-3) 14.8 8-16 [facility]HealthBlood Urea Fufkvoom1281-90-64 02:45:00* Test Item Value Reference Range Interpretation Comments Blood Urea Nitrogen (test code = 3094-0) 49 7-26 H [facility]HealthCreatinine2018-09-11 02:45:00* Test Item Value Reference Range Interpretation Comments Creatinine (test code = 2160-0) 1.93 0.57-1.11 H [facility]HealthBUN/Creatinine Juwvt6812-80-17 02:45:00* Test Item Value Reference Range Interpretation Comments BUN/Creatinine Ratio (test code = 3097-3) 25 6-25 [facility]Estimat Glomerular Filtration Rate 2018-04-03 02:45:00* Test Item Value Reference Range Interpretation Comments Estimat Glomerular Filtration Rate (test code = 99706-4) 26 >60 L Ranges were taken from the National Kidney Disease Education Program and the [facility] literature.Reference ranges:60 or greater: Nckepd98-81 ( for 3 consecutive months): Chronic kidney disease 15 or less: Kidney failureAdventHealthGlucose Oxzxh2352-25-98 02:45:00* Test Item Value Reference Range Interpretation Comments Glucose Level (test code = KOJ0889) 58 74-118 LL Results called to LU HARMON RN at 0244 on 04/03/18 by Francoise Proctor. RB OK. [facility]Calcium Sssvz4511-45-93 02:45:00* Test Item Value Reference Range Interpretation Comments Calcium Level (test code = 79527-2) 9.3 8.4-10.2 [facility]Total Kxmiwblao8033-79-97 02:45:00* Test Item Value Reference Range Interpretation Comments Total Bilirubin (test code = 1975-2) 0.2 0.2-1.2 [facility]HealthAspartate Amino Transf (AST/SGOT) 2018-04-03 02:45:00* Test Item Value Reference Range Interpretation Comments Aspartate Amino Transf (AST/SGOT) (test code = Aspartate Amino Transf (AST/SGOT)) 18 5-34 [facility]HealthAlanine Aminotransferase (ALT/SGPT) 2018-04-03 02:45:00* Test Item Value Reference Range Interpretation Comments Alanine Aminotransferase (ALT/SGPT) (test code = 1742-6) 18 0-55 [facility]Total Ikzhejv6502-35-03 02:45:00* Test Item Value Reference Range Interpretation Comments Total Protein (test code = 2885-2) 7.3 6.5-8.1 [facility]Albumin2018-09-11 02:45:00* Test Item Value Reference Range Interpretation Comments Albumin (test code = 1751-7) 3.5 3.5-5.0 [facility]Globulin2018-09-11 02:45:00* Test Item Value Reference Range Interpretation Comments Globulin (test code = 43326-8) 3.8 2.3-3.5 H [facility]HealthAlbumin/Globulin Ztsfi3298-29-58 02:45:00 * Test Item Value Reference Range Interpretation Comments Albumin/Globulin Ratio (test code = 1759-0) 0.9 0.8-2.0 [facility]HealthAlkaline Qtccirfqrjd6374-21-03 02:45:00* Test Item Value Reference Range Interpretation Comments Alkaline Phosphatase (test code = 6768-6) 56 40-150 [facility]Creatine Xnibse9796-56-04 02:45:00* Test Item Value Reference Range Interpretation Comments Creatine Kinase (test code = 2157-6) 54 29-168 [facility]Urine Rfapt9700-47-90 02:37:00* Test Item Value Reference Range Interpretation Comments Urine Color (test code = 5778-6) COLORLESS YELLOW [facility]HealthUrine Mkrmrno7857-53-06 02:37:00* Test Item Value Reference Range Interpretation Comments Urine Clarity (test code = 56431-8) CLEAR CLEAR [facility] Specific Urqbsnh5061-51-45 02:37:00 * Test Item Value Reference Range Interpretation Comments Urine Specific [place] (test code = 5811-5) 1.005 1.010-1.02 5 L [facility] pT7943-12-19 02:37:00* Test Item Value Reference Range Interpretation Comments Urine pH (test code = 14594-5) 7 5-7 [facility] Leukocyte Shpxhztl3110-95-34 02:37:00* Test Item Value Reference Range Interpretation Comments Urine Leukocyte Esterase (test code = 5799-2) NEGATIVE NEGATIVE [facility] Iviragf5393-63-76 02:37:00* Test Item Value Reference Range Interpretation Comments Urine Nitrite (test code = 25754-6) NEGATIVE NEGATIVE [facility] Jezlmla5231-11-15 02:37:00* Test Item Value Reference Range Interpretation Comments Urine Protein (test code = 5804-0) NEGATIVE NEGATIVE [facility] Glucose (UA)2018-04-03 02:37:00* Test Item Value Reference Range Interpretation Comments Urine Glucose (UA) (test code = 2349-9) NEGATIVE NEGATIVE [facility] Esmvsfn7216-43-86 02:37:00* Test Item Value Reference Range Interpretation Comments Urine Ketones (test code = 34199-7) NEGATIVE NEGATIVE [facility] Ckjpjgelgssm6630-26-70 02:37:00* Test Item Value Reference Range Interpretation Comments Urine Urobilinogen (test code = 06084-3) 0.2 0.2-1 [facility] Nzmhwywmh5926-41-35 02:37:00* Test Item Value Reference Range Interpretation Comments Urine Bilirubin (test code = 1978-6) NEGATIVE NEGATIVE [facility]HealthUrine Muuvx0376-04-41 02:37:00* Test Item Value Reference Range Interpretation Comments Urine Blood (test code = 72389-8) TRACE NEGATIVE H [facility]Urine BYI7973-92-27 02:37:00* Test Item Value Reference Range Interpretation Comments Urine WBC (test code = 5821-4) 0-5 0-5 [facility]Urine XQQ9559-58-11 02:37:00* Test Item Value Reference Range Interpretation Comments Urine RBC (test code = 97723-6) 0-5 0-5 [facility]Urine Qmentgxc5785-08-50 02:37:00* Test Item Value Reference Range Interpretation Comments Urine Bacteria (test code = 92406-6) RARE NONE [facility] Epithelial Musdr1102-64-12 02:37:00 * Test Item Value Reference Range Interpretation Comments Urine Epithelial Cells (test code = 98877-3) FEW NONE [facility]Urine Iubrr4484-97-11 02:37:00* Test Item Value Reference Range Interpretation Comments Urine Color (test code = 5778-6) COLORLESS YELLOW [facility]Urine Qinioxp6592-46-00 02:37:00* Test Item Value Reference Range Interpretation Comments Urine Clarity (test code = 84867-8) CLEAR CLEAR [facility]Urine Specific Kexrdiu8626-93-14 02:37:00 * Test Item Value Reference Range Interpretation Comments Urine Specific [place] (test code = 5811-5) 1.005 1.010-1.02 5 L [facility]Urine wY4488-26-99 02:37:00* Test Item Value Reference Range Interpretation Comments Urine pH (test code = 02071-4) 7 5-7 [facility]Urine Leukocyte Exiyfrku9377-58-23 02:37:00* Test Item Value Reference Range Interpretation Comments Urine Leukocyte Esterase (test code = 5799-2) NEGATIVE NEGATIVE [facility]Urine Tumqtbj4414-10-79 02:37:00* Test Item Value Reference Range Interpretation Comments Urine Nitrite (test code = 62527-9) NEGATIVE NEGATIVE [facility]Urine Hvyuyfr6840-08-97 02:37:00* Test Item Value Reference Range Interpretation Comments Urine Protein (test code = 5804-0) NEGATIVE NEGATIVE [facility]Urine Glucose (UA)2018-04-03 02:37:00* Test Item Value Reference Range Interpretation Comments Urine Glucose (UA) (test code = 2349-9) NEGATIVE NEGATIVE [facility]Urine Eiwowqw6913-95-16 02:37:00* Test Item Value Reference Range Interpretation Comments Urine Ketones (test code = 62832-8) NEGATIVE NEGATIVE [facility] Xghygneugcbn6887-48-18 02:37:00* Test Item Value Reference Range Interpretation Comments Urine Urobilinogen (test code = 89680-4) 0.2 0.2-1 [facility] Aldcggffh1484-47-67 02:37:00* Test Item Value Reference Range Interpretation Comments Urine Bilirubin (test code = 1978-6) NEGATIVE NEGATIVE [facility] Btlzy9758-20-68 02:37:00* Test Item Value Reference Range Interpretation Comments Urine Blood (test code = 65837-9) TRACE NEGATIVE H [facility] LZX6247-32-63 02:37:00* Test Item Value Reference Range Interpretation Comments Urine WBC (test code = 5821-4) 0-5 0-5 [facility] WQH7493-16-36 02:37:00* Test Item Value Reference Range Interpretation Comments Urine RBC (test code = 76605-0) 0-5 0-5 [facility] Tlfmjaih8414-50-67 02:37:00* Test Item Value Reference Range Interpretation Comments Urine Bacteria (test code = 46461-6) RARE NONE [facility] Epithelial Jttsd7341-32-64 02:37:00 * Test Item Value Reference Range Interpretation Comments Urine Epithelial Cells (test code = 87850-9) FEW NONE [facility]Urine Dsgvy4950-79-22 02:37:00* Test Item Value Reference Range Interpretation Comments Urine Color (test code = 5778-6) COLORLESS YELLOW [facility]Urine Hcodvkt5234-48-11 02:37:00* Test Item Value Reference Range Interpretation Comments Urine Clarity (test code = 04113-2) CLEAR CLEAR [facility] Specific Hlvekoj8955-93-54 02:37:00 * Test Item Value Reference Range Interpretation Comments Urine Specific [place] (test code = 5811-5) 1.005 1.010-1.02 5 L [facility]Urine dR4823-97-93 02:37:00* Test Item Value Reference Range Interpretation Comments Urine pH (test code = 61578-3) 7 5-7 [facility] Leukocyte Dijgxuty2371-85-66 02:37:00* Test Item Value Reference Range Interpretation Comments Urine Leukocyte Esterase (test code = 5799-2) NEGATIVE NEGATIVE [facility] Gqvhjrc4343-17-28 02:37:00* Test Item Value Reference Range Interpretation Comments Urine Nitrite (test code = 18128-7) NEGATIVE NEGATIVE [facility] Zgjmwwm7592-73-90 02:37:00* Test Item Value Reference Range Interpretation Comments Urine Protein (test code = 5804-0) NEGATIVE NEGATIVE [facility] Glucose (UA)2018-04-03 02:37:00* Test Item Value Reference Range Interpretation Comments Urine Glucose (UA) (test code = 2349-9) NEGATIVE NEGATIVE [facility] Whgafuw8084-04-94 02:37:00* Test Item Value Reference Range Interpretation Comments Urine Ketones (test code = 88292-8) NEGATIVE NEGATIVE [facility] Nhwwiefhxwti5413-87-14 02:37:00* Test Item Value Reference Range Interpretation Comments Urine Urobilinogen (test code = 56030-7) 0.2 0.2-1 [facility] Tvacttiuu4751-23-33 02:37:00* Test Item Value Reference Range Interpretation Comments Urine Bilirubin (test code = 1978-6) NEGATIVE NEGATIVE [facility] Cucoe2884-11-03 02:37:00* Test Item Value Reference Range Interpretation Comments Urine Blood (test code = 22349-7) TRACE NEGATIVE H [facility] IWS3180-71-97 02:37:00* Test Item Value Reference Range Interpretation Comments Urine WBC (test code = 5821-4) 0-5 0-5 [facility] QVC2381-60-95 02:37:00* Test Item Value Reference Range Interpretation Comments Urine RBC (test code = 03630-9) 0-5 0-5 [facility] Kgjythxj2537-21-63 02:37:00* Test Item Value Reference Range Interpretation Comments Urine Bacteria (test code = 47561-6) RARE NONE [facility] Epithelial Swmwv3866-74-39 02:37:00 * Test Item Value Reference Range Interpretation Comments Urine Epithelial Cells (test code = 86715-6) FEW NONE [facility] Fcnqc0265-25-35 02:37:00* Test Item Value Reference Range Interpretation Comments Urine Color (test code = 5778-6) COLORLESS YELLOW [facility]Urine Bcayeuo2231-73-56 02:37:00* Test Item Value Reference Range Interpretation Comments Urine Clarity (test code = 87953-4) CLEAR CLEAR [facility] Specific Fgvtesw1307-07-08 02:37:00 * Test Item Value Reference Range Interpretation Comments Urine Specific [place] (test code = 5811-5) 1.005 1.010-1.02 5 L [facility] hK3643-58-84 02:37:00* Test Item Value Reference Range Interpretation Comments Urine pH (test code = 83534-4) 7 5-7 [facility] Leukocyte Afypeytd5461-70-08 02:37:00* Test Item Value Reference Range Interpretation Comments Urine Leukocyte Esterase (test code = 5799-2) NEGATIVE NEGATIVE [facility] Kmlxzyg0651-96-89 02:37:00* Test Item Value Reference Range Interpretation Comments Urine Nitrite (test code = 80710-5) NEGATIVE NEGATIVE [facility] Ibnldla4386-58-08 02:37:00* Test Item Value Reference Range Interpretation Comments Urine Protein (test code = 5804-0) NEGATIVE NEGATIVE [facility] Glucose (UA)2018-04-03 02:37:00* Test Item Value Reference Range Interpretation Comments Urine Glucose (UA) (test code = 2349-9) NEGATIVE NEGATIVE [facility] Thwxjue7526-23-04 02:37:00* Test Item Value Reference Range Interpretation Comments Urine Ketones (test code = 08375-3) NEGATIVE NEGATIVE [facility] Dijzejfcxjzm3369-04-91 02:37:00* Test Item Value Reference Range Interpretation Comments Urine Urobilinogen (test code = 29062-3) 0.2 0.2-1 [facility] Bcvtsuaiv1333-81-20 02:37:00* Test Item Value Reference Range Interpretation Comments Urine Bilirubin (test code = 1978-6) NEGATIVE NEGATIVE [facility] Ofbve0727-95-05 02:37:00* Test Item Value Reference Range Interpretation Comments Urine Blood (test code = 22960-3) TRACE NEGATIVE H [facility] YDW2368-31-15 02:37:00* Test Item Value Reference Range Interpretation Comments Urine WBC (test code = 5821-4) 0-5 0-5 [facility] EZK0448-34-62 02:37:00* Test Item Value Reference Range Interpretation Comments Urine RBC (test code = 89534-9) 0-5 0-5 [facility] Ryrrcbnw2263-87-80 02:37:00* Test Item Value Reference Range Interpretation Comments Urine Bacteria (test code = 35546-1) RARE NONE [facility] Mlsol1207-90-93 02:37:00 * Test Item Value Reference Range Interpretation Comments Urine Epithelial Cells (test code = 32180-4) FEW NONE [facility] Qpexo4626-62-75 02:30:00* Test Item Value Reference Range Interpretation Comments White Blood Count (test code = 6690-2) 6.05 4.8-10.8 [facility] Aucfp8461-50-01 02:30:00* Test Item Value Reference Range Interpretation Comments Red Blood Count (test code = 789-8) 4.43 3.6-5.1 [facility]2018-09-11 02:30:00* Test Item Value Reference Range Interpretation Comments Hemoglobin (test code = 62320-1) 11.5 12.0-16.0 L [facility]ematocrit2018-09-11 02:30:00* Test Item Value Reference Range Interpretation Comments Hematocrit (test code = 4544-3) 38.3 34.2-44.1 [facility] Corpuscular Cdkgpt4692-02-39 02:30:00* Test Item Value Reference Range Interpretation Comments Mean Corpuscular Volume (test code = 787-2) 86.5 81-99 [facility] Corpuscular Locwxtlavl0903-75-78 02:30:00* Test Item Value Reference Range Interpretation Comments Mean Corpuscular Hemoglobin (test code = 785-6) 26.0 28-32 L [facility] Corpuscular Hemoglobin Concent 2018-04-03 02:30:00* Test Item Value Reference Range Interpretation Comments Mean Corpuscular Hemoglobin Concent (test code = 786-4) 30.0 31-35 L [facility] Cell Distribution Fmgeg5232-83-37 02:30:00* Test Item Value Reference Range Interpretation Comments Red Cell Distribution Width (test code = 27648-3) 15.9 11.7 -14.4 H [facility] Ejdmm4303-35-07 02:30:00* Test Item Value Reference Range Interpretation Comments Platelet Count (test code = 777-3) 175 140-360 [facility] (%) (Auto)2018-04-03 02:30:00 * Test Item Value Reference Range Interpretation Comments Neutrophils (%) (Auto) (test code = 67157-8) 69.7 38.7-80.0 [facility] (%) (Auto)2018-04-03 02:30:00 * Test Item Value Reference Range Interpretation Comments Lymphocytes (%) (Auto) (test code = 736-9) 18.5 18.0-39.1 [facility] (%) (Auto)2018-04-03 02:30:00* Test Item Value Reference Range Interpretation Comments Monocytes (%) (Auto) (test code = 5905-5) 6.8 4.4-11.3 [facility]osinophils (%) (Auto)2018-04-03 02:30:00 * Test Item Value Reference Range Interpretation Comments Eosinophils (%) (Auto) (test code = 713-8) 3.3 0.0-6.0 [facility] (%) (Auto)2018-04-03 02:30:00* Test Item Value Reference Range Interpretation Comments Basophils (%) (Auto) (test code = 706-2) 1.0 0.0-1.0 [facility]ANULOCYTES %2018-04-03 02:30:00* Test Item Value Reference Range Interpretation Comments IM GRANULOCYTES % (test code = IM GRANULOCYTES %) 0.7 0.0- 1.0 [facility] # (Auto)2018-04-03 02:30:00* Test Item Value Reference Range Interpretation Comments Neutrophils # (Auto) (test code = 751-8) 4.2 2.1-6.9 [facility] # (Auto)2018-04-03 02:30:00* Test Item Value Reference Range Interpretation Comments Lymphocytes # (Auto) (test code = 41483-0) 1.1 1.0-3.2 [facility] # (Auto)2018-04-03 02:30:00* Test Item Value Reference Range Interpretation Comments Monocytes # (Auto) (test code = 742-7) 0.4 0.2-0.8 [facility] # (Auto)2018-04-03 02:30:00* Test Item Value Reference Range Interpretation Comments Eosinophils # (Auto) (test code = 711-2) 0.2 0.0-0.4 [facility] # (Auto)2018-04-03 02:30:00* Test Item Value Reference Range Interpretation Comments Basophils # (Auto) (test code = 704-7) 0.1 0.0-0.1 [facility] Immature Granulocyte (auto 2018-04-03 02:30:00* Test Item Value Reference Range Interpretation Comments Absolute Immature Granulocyte (auto (joseph t code = Absolute Immature Granulocyte (auto) 0.04 0-0.1 [facility] SINGLE (PORTABLE)2018-04-03 02:16:00 [facility] [address] [place] [address] Patient Name: KALYANI TALAVERA MR #: [id number] : 1955 Age/Sex: 63/F Req #: [id number] Adm Physician: Ordered by: ROBERT OLIVIA MD Report #: [id number] Location: ER Room/Bed: Procedure: [id number] DX/CHEST SINGLE (PORTABLE) Ex am Date: Exam [...] 04/03/18216 COPY TO: ROBERT OLIVIA MD Bedside [place]9096-03-21 11:36:00* Test Item Value Reference Range Interpretation Comments Bedside Glucose (test code = 59310-7) 348 70-120 H Meter ID: [id number] Kinase MB 2018-02-05 06:30:00* Test Item Value Reference Range Interpretation Comments Creatine Kinase MB (test code = 94245-2) 1.40 0-5.0 [facility]roponin Y2513-83-50 06:30:00* Test Item Value Reference Range Interpretation Comments Troponin I (test code = ZAD4626) 0.007 0-0.300 [facility]ine Weowjf1833-77-16 06:23:00* Test Item Value Reference Range Interpretation Comments Creatine Kinase (test code = 2157-6) 53 29-168 [facility]iglycerides Xptad9096-41-51 06:10:00* Test Item Value Reference Range Interpretation Comments Triglycerides Level (test code = 2571-8) 159 0-149 H [facility]olesterol Mpere1839-57-42 06:10:00* Test Item Value Reference Range Interpretation Comments Cholesterol Level (test code = 2093-3) 180 0-199 Less than 200 mg/dL Low Ztzi571 - 239 mg/dL Borderline Eqtx848 m g/dl and greater High Risk [facility]LDL Rsnenxyuvnz9674-12-09 06:10:00* Test Item Value Reference Range Interpretation Comments LDL Cholesterol (test code = 2089-1) 118 60-130 [facility]HDL Hxvkccnxgxf4523-92-34 06:10:00* Test Item Value Reference Range Interpretation Comments HDL Cholesterol (test code = 2085-9) 30 40-60 L [facility]/HDL Slqwt8199-10-43 06:10:00 * Test Item Value Reference Range Interpretation Comments Cholesterol/HDL Ratio (test code = 9830-1) 6.0 3.0-3.6 H [facility] Enzwc0848-90-24 06:10:00* Test Item Value Reference Range Interpretation Comments Triglycerides Level (test code = 2571-8) 159 0-149 H [facility] Fkgyu2838-06-09 06:10:00* Test Item Value Reference Range Interpretation Comments Cholesterol Level (test code = 2093-3) 180 0-199 Less than 200 mg/dL Low Cxmo592 - 239 mg/dL Borderline Zehe431 m g/dl and greater High Risk [facility]LDL Sslopgjpzmu6390-25-37 06:10:00* Test Item Value Reference Range Interpretation Comments LDL Cholesterol (test code = 2089-1) 118 60-130 [facility] Xuznvkjszno4844-33-54 06:10:00* Test Item Value Reference Range Interpretation Comments HDL Cholesterol (test code = 2085-9) 30 40-60 L [facility]/HDL Ahznf2336-38-21 06:10:00 * Test Item Value Reference Range Interpretation Comments Cholesterol/HDL Ratio (test code = 9830-1) 6.0 3.0-3.6 H [facility] Ovqem6914-68-18 06:10:00* Test Item Value Reference Range Interpretation Comments Triglycerides Level (test code = 2571-8) 159 0-149 H [facility] Ukbnq9935-49-43 06:10:00* Test Item Value Reference Range Interpretation Comments Cholesterol Level (test code = 2093-3) 180 0-199 Less than 200 mg/dL Low Nqle002 - 239 mg/dL Borderline Sadq835 m g/dl and greater High Risk [facility]LDL Zqraywheoxb0531-24-05 06:10:00* Test Item Value Reference Range Interpretation Comments LDL Cholesterol (test code = 2089-1) 118 60-130 [facility] Naeiowttrwj6970-42-21 06:10:00* Test Item Value Reference Range Interpretation Comments HDL Cholesterol (test code = 2085-9) 30 40-60 L [facility]/HDL Krgcx0266-48-40 06:10:00 * Test Item Value Reference Range Interpretation Comments Cholesterol/HDL Ratio (test code = 9830-1) 6.0 3.0-3.6 H [facility] Qikji4588-15-53 06:10:00* Test Item Value Reference Range Interpretation Comments Triglycerides Level (test code = 2571-8) 159 0-149 H [facility] Xovpp3686-16-78 06:10:00* Test Item Value Reference Range Interpretation Comments Cholesterol Level (test code = 2093-3) 180 0-199 Less than 200 mg/dL Low Babd234 - 239 mg/dL Borderline Fjns984 m g/dl and greater High Risk [facility] Rvwxlkurhex4384-67-55 06:10:00* Test Item Value Reference Range Interpretation Comments LDL Cholesterol (test code = 2089-1) 118 60-130 [facility] Ggvahejhore2754-28-64 06:10:00* Test Item Value Reference Range Interpretation Comments HDL Cholesterol (test code = 2085-9) 30 40-60 L [facility]/HDL Vfdgv9400-17-87 06:10:00 * Test Item Value Reference Range Interpretation Comments Cholesterol/HDL Ratio (test code = 9830-1) 6.0 3.0-3.6 H [facility] Xadca9782-45-33 06:10:00* Test Item Value Reference Range Interpretation Comments Triglycerides Level (test code = 2571-8) 159 0-149 H [facility] Vzgxh7137-29-59 06:10:00* Test Item Value Reference Range Interpretation Comments Cholesterol Level (test code = 2093-3) 180 0-199 Less than 200 mg/dL Low Reux555 - 239 mg/dL Borderline Dyqk109 m g/dl and greater High Risk [facility]LDL Hzzknkplxcl2568-24-04 06:10:00* Test Item Value Reference Range Interpretation Comments LDL Cholesterol (test code = 2089-1) 118 60-130 [facility]HDL Dvxyanagsph7903-99-34 06:10:00* Test Item Value Reference Range Interpretation Comments HDL Cholesterol (test code = 2085-9) 30 40-60 L [facility]/HDL Dgffk4350-10-70 06:10:00 * Test Item Value Reference Range Interpretation Comments Cholesterol/HDL Ratio (test code = 9830-1) 6.0 3.0-3.6 H [facility])2018-02-04 11:35:00 [place] [address] Patient Name: KALYANI TALAVERA MR #: [id number] : 1955 Age/Sex: 62/F Req #: [id number] Adm Physician: Ordered by: ROBERT OLIVIA MD Report #: [id number] Location: ER Room/Bed: Procedure: [id number] DX/CHEST SINGLE (PORTABLE) Ex am Date: 02/04/18 [...] COPY TO: ROBERT OLIVIA MD White Blood Tawjh8355-10-15 11:19:00* Test Item Value Reference Range Interpretation Comments White Blood Count (test code = 6690-2) 6.94 4.8-10.8 [facility] Blood Pznui2866-04-85 11:19:00* Test Item Value Reference Range Interpretation Comments Red Blood Count (test code = 789-8) 4.49 3.6-5.1 [facility]Hemoglobin2018-07-15 11:19:00* Test Item Value Reference Range Interpretation Comments Hemoglobin (test code = 80922-9) 11.3 12.0-16.0 L [facility]Hematocrit2018-07-15 11:19:00* Test Item Value Reference Range Interpretation Comments Hematocrit (test code = 4544-3) 37.6 34.2-44.1 [facility] Corpuscular Mgpazw9423-00-47 11:19:00* Test Item Value Reference Range Interpretation Comments Mean Corpuscular Volume (test code = 787-2) 83.7 81-99 [facility] Corpuscular Ujxfqulmrv1556-45-86 11:19:00* Test Item Value Reference Range Interpretation Comments Mean Corpuscular Hemoglobin (test code = 785-6) 25.2 28-32 L [facility] Corpuscular Hemoglobin Concent 2018-02-04 11:19:00* Test Item Value Reference Range Interpretation Comments Mean Corpuscular Hemoglobin Concent (test code = 786-4) 30.1 31-35 L [facility] Cell Distribution Onlol6544-79-69 11:19:00* Test Item Value Reference Range Interpretation Comments Red Cell Distribution Width (test code = 38848-9) 15.7 11.7 -14.4 H [facility] Ngajo9855-20-01 11:19:00* Test Item Value Reference Range Interpretation Comments Platelet Count (test code = 777-3) 217 140-360 [facility] (%) (Auto)2018-02-04 11:19:00 * Test Item Value Reference Range Interpretation Comments Neutrophils (%) (Auto) (test code = 20389-5) 70.5 38.7-80.0 [facility]Lymphocytes (%) (Auto)2018-02-04 11:19:00 * Test Item Value Reference Range Interpretation Comments Lymphocytes (%) (Auto) (test code = 736-9) 19.0 18.0-39.1 [facility] (%) (Auto)2018-02-04 11:19:00* Test Item Value Reference Range Interpretation Comments Monocytes (%) (Auto) (test code = 5905-5) 5.3 4.4-11.3 [facility]osinophils (%) (Auto)2018-02-04 11:19:00 * Test Item Value Reference Range Interpretation Comments Eosinophils (%) (Auto) (test code = 713-8) 3.2 0.0-6.0 [facility] (%) (Auto)2018-02-04 11:19:00* Test Item Value Reference Range Interpretation Comments Basophils (%) (Auto) (test code = 706-2) 1.0 0.0-1.0 [facility] GRANULOCYTES %2018-02-04 11:19:00* Test Item Value Reference Range Interpretation Comments IM GRANULOCYTES % (test code = IM GRANULOCYTES %) 1.0 0.0- 1.0 [facility] # (Auto)2018-02-04 11:19:00* Test Item Value Reference Range Interpretation Comments Neutrophils # (Auto) (test code = 751-8) 4.9 2.1-6.9 [facility] # (Auto)2018-02-04 11:19:00* Test Item Value Reference Range Interpretation Comments Lymphocytes # (Auto) (test code = 53699-3) 1.3 1.0-3.2 [facility] # (Auto)2018-02-04 11:19:00* Test Item Value Reference Range Interpretation Comments Monocytes # (Auto) (test code = 742-7) 0.4 0.2-0.8 [facility]ophils # (Auto)2018-02-04 11:19:00* Test Item Value Reference Range Interpretation Comments Eosinophils # (Auto) (test code = 711-2) 0.2 0.0-0.4 [facility] # (Auto)2018-02-04 11:19:00* Test Item Value Reference Range Interpretation Comments Basophils # (Auto) (test code = 704-7) 0.1 0.0-0.1 [facility] Immature Granulocyte (auto 2018-02-04 11:19:00* Test Item Value Reference Range Interpretation Comments Absolute Immature Granulocyte (auto (joseph t code = Absolute Immature Granulocyte (auto) 0.07 0-0.1 [facility] Yaaxk7968-12-77 11:17:00* Test Item Value Reference Range Interpretation Comments Urine Color (test code = 5778-6) YELLOW YELLOW [facility] Ppiniwz0014-95-95 11:17:00* Test Item Value Reference Range Interpretation Comments Urine Clarity (test code = 43579-6) CLEAR CLEAR [facility] Specific Mwqugza9444-57-91 11:17:00 * Test Item Value Reference Range Interpretation Comments Urine Specific [place] (test code = 5811-5) 1.010 1.010-1.02 5 [facility] nX3542-55-06 11:17:00* Test Item Value Reference Range Interpretation Comments Urine pH (test code = 80587-2) 6 5-7 [facility] Leukocyte Emlgpflw9380-07-75 11:17:00* Test Item Value Reference Range Interpretation Comments Urine Leukocyte Esterase (test code = 5799-2) NEGATIVE NEGATIVE [facility] Gaavctz1817-42-19 11:17:00* Test Item Value Reference Range Interpretation Comments Urine Nitrite (test code = 03724-1) NEGATIVE NEGATIVE [facility] Nakjfpu7940-55-77 11:17:00* Test Item Value Reference Range Interpretation Comments Urine Protein (test code = 5804-0) NEGATIVE NEGATIVE [facility] Glucose (UA)2018-02-04 11:17:00* Test Item Value Reference Range Interpretation Comments Urine Glucose (UA) (test code = 2349-9) NEGATIVE NEGATIVE [facility] Cqdsbup2706-22-66 11:17:00* Test Item Value Reference Range Interpretation Comments Urine Ketones (test code = 09777-3) NEGATIVE NEGATIVE [facility] Opiates Ooqfft8818-34-85 11:17:00* Test Item Value Reference Range Interpretation Comments Urine Opiates Screen (test code = 35899-4) NEGATIVE NEGATIVE [facility] Barbiturates Xaffgn1825-24-68 11:17:00* Test Item Value Reference Range Interpretation Comments Urine Barbiturates Screen (test code = 708611109) NEGATIVE NEGA TIVE [facility] Phencyclidine Dkxfsu2252-91-38 11:17:00* Test Item Value Reference Range Interpretation Comments Urine Phencyclidine Screen (test code = 42874-9) NEGATIVE NEGAT MARY [facility] Amphetamines Wjetmt3087-40-74 11:17:00* Test Item Value Reference Range Interpretation Comments Urine Amphetamines Screen (test code = 62141-4) NEGATIVE NEGATI VE [facility] Methamphetamines Mvqqin9530-43-40 11:17:00* Test Item Value Reference Range Interpretation Comments Urine Methamphetamines Screen (test code = Urine Metha mphetamines Screen) NEGATIVE NEGATIVE [facility] Benzodiazepines Rflfae8185-55-43 11:17:00* Test Item Value Reference Range Interpretation Comments Urine Benzodiazepines Screen (test code = 48069-6) NEGATIVE NEG ATIVE [facility] Cocaine Htgkvt8254-29-76 11:17:00* Test Item Value Reference Range Interpretation Comments Urine Cocaine Screen (test code = 3398-5) NEGATIVE NEGATIVE [facility] Cannabinoids Osvbjf8987-24-57 11:17:00* Test Item Value Reference Range Interpretation Comments Urine Cannabinoids Screen (test code = 75932-0) NEGATIVE NEGATI VE THESE RESULTS ARE FOR MEDICAL TREATMENT ONLYTHIS REPORT CONTAINS UNCONFIR MED SCREENING RESULTS*POSITIVE RESULTS WILL BE CONFIRMED BY REFERENCE LAB UPON R EQUEST CUT-OFFDRUG CLASS CONCENTRATION ng/mLAmphetamines 1000Methamphetamines 1000Cocaine 300Opiate 300Phencyc lidine 25Cannabinoid 50Barbiturates 300Benzodiazepine 300Methadone 300[facility] Sacklpmyzfho7543-82-42 11:17:00* Test Item Value Reference Range Interpretation Comments Urine Urobilinogen (test code = 50134-2) 0.2 0.2-1 [facility] Ftonaljrg9002-28-77 11:17:00* Test Item Value Reference Range Interpretation Comments Urine Bilirubin (test code = 1978-6) NEGATIVE NEGATIVE [facility] Shaou6762-48-81 11:17:00* Test Item Value Reference Range Interpretation Comments Urine Blood (test code = 52119-2) NEGATIVE NEGATIVE [facility] IUS4029-98-99 11:17:00* Test Item Value Reference Range Interpretation Comments Urine WBC (test code = 5821-4) 0-5 0-5 [facility] ZRV4244-06-43 11:17:00* Test Item Value Reference Range Interpretation Comments Urine RBC (test code = 57361-9) NONE 0-5 [facility] Olwqopvk5682-99-64 11:17:00* Test Item Value Reference Range Interpretation Comments Urine Bacteria (test code = 58352-5) FEW NONE [facility] Epithelial Hytgn9682-19-87 11:17:00 * Test Item Value Reference Range Interpretation Comments Urine Epithelial Cells (test code = 88217-0) MODERATE NONE [facility] Qktxk1450-72-89 11:17:00* Test Item Value Reference Range Interpretation Comments Urine Mucus (test code = 8247-9) FEW RARE H [facility] Opiates Ahwjqz8538-15-81 11:17:00* Test Item Value Reference Range Interpretation Comments Urine Opiates Screen (test code = 40127-2) NEGATIVE NEGATIVE [facility] Barbiturates Iajgkn1252-15-49 11:17:00* Test Item Value Reference Range Interpretation Comments Urine Barbiturates Screen (test code = 120572199) NEGATIVE NEGA TIVE [facility] Phencyclidine Khpkyi7790-16-17 11:17:00* Test Item Value Reference Range Interpretation Comments Urine Phencyclidine Screen (test code = 88560-7) NEGATIVE NEGAT MARY [facility] Amphetamines Qvwaeq1375-97-60 11:17:00* Test Item Value Reference Range Interpretation Comments Urine Amphetamines Screen (test code = 13555-8) NEGATIVE NEGATI VE [facility] Methamphetamines Xrkrrf8607-28-60 11:17:00* Test Item Value Reference Range Interpretation Comments Urine Methamphetamines Screen (test code = Urine Metha mphetamines Screen) NEGATIVE NEGATIVE [facility] Benzodiazepines Vnryrm6135-97-56 11:17:00* Test Item Value Reference Range Interpretation Comments Urine Benzodiazepines Screen (test code = 82793-6) NEGATIVE NEG ATIVE [facility] Cocaine Dclrts9858-00-68 11:17:00* Test Item Value Reference Range Interpretation Comments Urine Cocaine Screen (test code = 3398-5) NEGATIVE NEGATIVE [facility] Cannabinoids Mfxhis6793-52-35 11:17:00* Test Item Value Reference Range Interpretation Comments Urine Cannabinoids Screen (test code = 47826-0) NEGATIVE NEGATI VE THESE RESULTS ARE FOR MEDICAL TREATMENT ONLYTHIS REPORT CONTAINS UNCONFIR MED SCREENING RESULTS*POSITIVE RESULTS WILL BE CONFIRMED BY REFERENCE LAB UPON R EQUEST CUT-OFFDRUG CLASS CONCENTRATION ng/mLAmphetamines 1000Methamphetamines 1000Cocaine 300Opiate 300Phencyc lidine 25Cannabinoid 50Barbiturates 300Benzodiazepine 300Methadone 300[facility] Opuqt4600-45-36 11:17:00* Test Item Value Reference Range Interpretation Comments Urine Mucus (test code = 8247-9) FEW RARE H [facility] Opiates Uimdgn0165-86-90 11:17:00* Test Item Value Reference Range Interpretation Comments Urine Opiates Screen (test code = 61829-8) NEGATIVE NEGATIVE [facility] Barbiturates Ufkqrb2780-35-70 11:17:00* Test Item Value Reference Range Interpretation Comments Urine Barbiturates Screen (test code = 715136840) NEGATIVE NEGA TIVE [facility] Phencyclidine Dtpgly1081-00-44 11:17:00* Test Item Value Reference Range Interpretation Comments Urine Phencyclidine Screen (test code = 25634-4) NEGATIVE NEGAT MARY [facility] Amphetamines Mseuhh9913-31-33 11:17:00* Test Item Value Reference Range Interpretation Comments Urine Amphetamines Screen (test code = 45743-7) NEGATIVE NEGATI VE [facility] Methamphetamines Cacpcl2360-93-41 11:17:00* Test Item Value Reference Range Interpretation Comments Urine Methamphetamines Screen (test code = Urine Metha mphetamines Screen) NEGATIVE NEGATIVE [facility] Benzodiazepines Tqdjpa9398-41-18 11:17:00* Test Item Value Reference Range Interpretation Comments Urine Benzodiazepines Screen (test code = 46163-1) NEGATIVE NEG ATIVE [facility] Cocaine Eaxgnj1047-14-96 11:17:00* Test Item Value Reference Range Interpretation Comments Urine Cocaine Screen (test code = 3398-5) NEGATIVE NEGATIVE [facility] Cannabinoids Satcey4413-91-45 11:17:00* Test Item Value Reference Range Interpretation Comments Urine Cannabinoids Screen (test code = 28760-6) NEGATIVE NEGATI VE THESE RESULTS ARE FOR MEDICAL TREATMENT ONLYTHIS REPORT CONTAINS UNCONFIR MED SCREENING RESULTS*POSITIVE RESULTS WILL BE CONFIRMED BY REFERENCE LAB UPON R EQUEST CUT-OFFDRUG CLASS CONCENTRATION ng/mLAmphetamines 1000Methamphetamines 1000Cocaine 300Opiate 300Phencyc lidine 25Cannabinoid 50Barbiturates 300Benzodiazepine 300Methadone 300[facility] Yysxv7739-97-05 11:17:00* Test Item Value Reference Range Interpretation Comments Urine Mucus (test code = 8247-9) FEW RARE H [facility] Opiates Bjdpgl2019-43-03 11:17:00* Test Item Value Reference Range Interpretation Comments Urine Opiates Screen (test code = 39162-6) NEGATIVE NEGATIVE [facility] Barbiturates Lkdfur3152-14-54 11:17:00* Test Item Value Reference Range Interpretation Comments Urine Barbiturates Screen (test code = 210257707) NEGATIVE NEGA TIVE [facility] Phencyclidine Swlyan2620-63-73 11:17:00* Test Item Value Reference Range Interpretation Comments Urine Phencyclidine Screen (test code = 30451-8) NEGATIVE NEGAT MARY [facility] Amphetamines Txuflc7936-18-58 11:17:00* Test Item Value Reference Range Interpretation Comments Urine Amphetamines Screen (test code = 96100-8) NEGATIVE NEGATI VE [facility] Methamphetamines Wzdxuo5809-17-81 11:17:00* Test Item Value Reference Range Interpretation Comments Urine Methamphetamines Screen (test code = Urine Metha mphetamines Screen) NEGATIVE NEGATIVE [facility] Benzodiazepines Seljst0836-11-64 11:17:00* Test Item Value Reference Range Interpretation Comments Urine Benzodiazepines Screen (test code = 41511-4) NEGATIVE NEG ATIVE [facility] Cocaine Wxupap9949-30-42 11:17:00* Test Item Value Reference Range Interpretation Comments Urine Cocaine Screen (test code = 3398-5) NEGATIVE NEGATIVE [facility] Cannabinoids Zfayxz1659-81-91 11:17:00* Test Item Value Reference Range Interpretation Comments Urine Cannabinoids Screen (test code = 53731-3) NEGATIVE NEGATI VE THESE RESULTS ARE FOR MEDICAL TREATMENT ONLYTHIS REPORT CONTAINS UNCONFIR MED SCREENING RESULTS*POSITIVE RESULTS WILL BE CONFIRMED BY REFERENCE LAB UPON R EQUEST CUT-OFFDRUG CLASS CONCENTRATION ng/mLAmphetamines 1000Methamphetamines 1000Cocaine 300Opiate 300Phencyc lidine 25Cannabinoid 50Barbiturates 300Benzodiazepine 300Methadone 300[facility] Mdhze9136-60-85 11:17:00* Test Item Value Reference Range Interpretation Comments Urine Mucus (test code = 8247-9) FEW RARE H [facility] Opiates Wysnpd9260-21-66 11:17:00* Test Item Value Reference Range Interpretation Comments Urine Opiates Screen (test code = 56959-8) NEGATIVE NEGATIVE [facility] Barbiturates Ykvpcr4652-77-92 11:17:00* Test Item Value Reference Range Interpretation Comments Urine Barbiturates Screen (test code = 677614505) NEGATIVE NEGA TIVE [facility] Phencyclidine Cynevx2462-73-15 11:17:00* Test Item Value Reference Range Interpretation Comments Urine Phencyclidine Screen (test code = 48287-4) NEGATIVE NEGAT MARY [facility] Amphetamines Fbobnf0016-06-24 11:17:00* Test Item Value Reference Range Interpretation Comments Urine Amphetamines Screen (test code = 22068-8) NEGATIVE NEGATI VE [facility] Methamphetamines Bnhmjq5766-24-44 11:17:00* Test Item Value Reference Range Interpretation Comments Urine Methamphetamines Screen (test code = Urine Metha mphetamines Screen) NEGATIVE NEGATIVE [facility] Benzodiazepines Wdcsob3997-14-97 11:17:00* Test Item Value Reference Range Interpretation Comments Urine Benzodiazepines Screen (test code = 81721-5) NEGATIVE NEG ATIVE [facility] Cocaine Svupfo2082-87-20 11:17:00* Test Item Value Reference Range Interpretation Comments Urine Cocaine Screen (test code = 3398-5) NEGATIVE NEGATIVE [facility] Cannabinoids Udujxj7906-16-05 11:17:00* Test Item Value Reference Range Interpretation Comments Urine Cannabinoids Screen (test code = 73170-4) NEGATIVE NEGATI VE THESE RESULTS ARE FOR MEDICAL TREATMENT ONLYTHIS REPORT CONTAINS UNCONFIR MED SCREENING RESULTS*POSITIVE RESULTS WILL BE CONFIRMED BY REFERENCE LAB UPON R EQUEST CUT-OFFDRUG CLASS CONCENTRATION ng/mLAmphetamines 1000Methamphetamines 1000Cocaine 300Opiate 300Phencyc lidine 25Cannabinoid 50Barbiturates 300Benzodiazepine 300Methadone 300[facility] Center[facility] Dbdmj9986-52-40 11:17:00* Test Item Value Reference Range Interpretation Comments Urine Mucus (test code = 8247-9) FEW RARE H [facility]HealthB-Type Natriuretic Gdebdtp5496-38-62 11:08:00* Test Item Value Reference Range Interpretation Comments B-Type Natriuretic Peptide (test code = 11365-9) 29.0 0-100 [facility] Fifqk2394-15-78 11:03:00* Test Item Value Reference Range Interpretation Comments Sodium Level (test code = 2951-2) 140 136-145 [facility]Potassium Fqfnw9868-39-43 11:03:00* Test Item Value Reference Range Interpretation Comments Potassium Level (test code = 2823-3) 3.7 3.5-5.1 [facility]Chloride Dniik2708-05-05 11:03:00* Test Item Value Reference Range Interpretation Comments Chloride Level (test code = 2075-0) 100 98-107 [facility]Carbon Dioxide Kvvpy5235-41-61 11:03:00* Test Item Value Reference Range Interpretation Comments Carbon Dioxide Level (test code = 2028-9) 28 22-29 [facility]Anion Tyr4681-30-50 11:03:00* Test Item Value Reference Range Interpretation Comments Anion Gap (test code = 02395-2) 15.7 8-16 [facility]Blood Urea Cdjgarnb6258-78-44 11:03:00* Test Item Value Reference Range Interpretation Comments Blood Urea Nitrogen (test code = 3094-0) 39 7-26 H [facility]Creatinine2018-07-15 11:03:00* Test Item Value Reference Range Interpretation Comments Creatinine (test code = 2160-0) 1.29 0.57-1.11 H [facility]HealthBUN/Creatinine Lqpcy7518-71-10 11:03:00* Test Item Value Reference Range Interpretation Comments BUN/Creatinine Ratio (test code = 3097-3) 30 6-25 H [facility]HealthEstimat Glomerular Filtration Rate 2018-02-04 11:03:00* Test Item Value Reference Range Interpretation Comments Estimat Glomerular Filtration Rate (test code = 11112-2) 42 >60 L Ranges were taken from the National Kidney Disease Education Program and the [facility] literature.Reference ranges:60 or greater: [place]34-22 ( for 3 consecutive months): Chronic kidney disease 15 or less: Kidney failureCH[facility] CenterGlucose Iojso6360-93-42 11:03:00* Test Item Value Reference Range Interpretation Comments Glucose Level (test code = DUB6304) 155 74-118 H [facility]Calcium Prpmy4694-48-32 11:03:00* Test Item Value Reference Range Interpretation Comments Calcium Level (test code = 13996-0) 9.0 8.4-10.2 [facility]Magnesium Luzsg4204-14-92 11:03:00* Test Item Value Reference Range Interpretation Comments Magnesium Level (test code = 42524-6) 1.7 1.3-2.1 [facility]Total Wmjiqcqij9711-49-42 11:03:00* Test Item Value Reference Range Interpretation Comments Total Bilirubin (test code = 1975-2) 0.4 0.2-1.2 [facility]HealthAspartate Amino Transf (AST/SGOT) 2018-02-04 11:03:00* Test Item Value Reference Range Interpretation Comments Aspartate Amino Transf (AST/SGOT) (test code = Aspartate Amino Transf (AST/SGOT)) 15 5-34 [facility]HealthAlanine Aminotransferase (ALT/SGPT) 2018-02-04 11:03:00* Test Item Value Reference Range Interpretation Comments Alanine Aminotransferase (ALT/SGPT) (test code = 1742-6) 20 0-55 [facility]Total Tckbtpe0049-38-79 11:03:00* Test Item Value Reference Range Interpretation Comments Total Protein (test code = 2885-2) 6.7 6.5-8.1 [facility]Albumin2018-07-15 11:03:00* Test Item Value Reference Range Interpretation Comments Albumin (test code = 1751-7) 3.3 3.5-5.0 L [facility]Globulin2018-07-15 11:03:00* Test Item Value Reference Range Interpretation Comments Globulin (test code = 34393-4) 3.4 2.3-3.5 [facility]HealthAlbumin/Globulin Jzedf0115-66-82 11:03:00 * Test Item Value Reference Range Interpretation Comments Albumin/Globulin Ratio (test code = 1759-0) 1.0 0.8-2.0 [facility]HealthAlkaline Weukpqzljmb4605-39-00 11:03:00* Test Item Value Reference Range Interpretation Comments Alkaline Phosphatase (test code = 6768-6) 63 40-150 [facility]Amylase Binhu3213-44-16 11:03:00* Test Item Value Reference Range Interpretation Comments Amylase Level (test code = 1798-8) 30 25-125 [facility]Lipase2018-07-15 11:03:00* Test Item Value Reference Range Interpretation Comments Lipase (test code = 3040-3) 16 8-78 [facility]Magnesium Kpvbq9808-59-03 11:03:00* Test Item Value Reference Range Interpretation Comments Magnesium Level (test code = 34571-6) 1.7 1.3-2.1 [facility]HealthAmylase Izoob2016-92-51 11:03:00* Test Item Value Reference Range Interpretation Comments Amylase Level (test code = 1798-8) 30 25-125 [facility]Lipase2018-07-15 11:03:00* Test Item Value Reference Range Interpretation Comments Lipase (test code = 3040-3) 16 [facility]2018-07-15 11:03:00* Test Item Value Reference Range Interpretation Comments Magnesium Level (test code = 71692-5) 1.7 1.3-2.1 [facility]2018-07-15 11:03:00* Test Item Value Reference Range Interpretation Comments Amylase Level (test code = 1798-8) 30 -125 [facility]Lipase2018-07-15 11:03:00* Test Item Value Reference Range Interpretation Comments Lipase (test code = 3040-3) [facility]2018-07-15 11:03:00* Test Item Value Reference Range Interpretation Comments Magnesium Level (test code = 79808-9) 1.7 1.3-2.1 [facility]2018-07-15 11:03:00* Test Item Value Reference Range Interpretation Comments Amylase Level (test code = 1798-8) 30 -125 [facility]Lipase2018-07-15 11:03:00* Test Item Value Reference Range Interpretation Comments Lipase (test code = 3040-3) [facility]2018-07-15 11:03:00* Test Item Value Reference Range Interpretation Comments Magnesium Level (test code = 94470-4) 1.7 1.3-2.1 [facility]2018-07-15 11:03:00* Test Item Value Reference Range Interpretation Comments Amylase Level (test code = 1798-8) 30 25-125 [facility]Lipase2018-07-15 11:03:00* Test Item Value Reference Range Interpretation Comments Lipase (test code = 3040-3) [facility]HealthB-Type Natriuretic Phkbvuy1396-09-22 23:54:00* Test Item Value Reference Range Interpretation Comments B-Type Natriuretic Peptide (test code = 80379-4) 38.5 0-100 [facility]HealthCreatine Kinase TL8814-27-44 23:54:00* Test Item Value Reference Range Interpretation Comments Creatine Kinase MB (test code = 22697-7) 1.10 0-5.0 [facility]HealthTroponin R0303-50-40 23:54:00* Test Item Value Reference Range Interpretation Comments Troponin I (test code = PPE0692) -0.001 0-0.300 [facility]Urine RAH4201-55-53 23:42:00* Test Item Value Reference Range Interpretation Comments Urine WBC (test code = 5821-4) 0-5 0-5 [facility]Urine HUQ5906-71-08 23:42:00* Test Item Value Reference Range Interpretation Comments Urine RBC (test code = 08875-6) NONE 0-5 [facility]Urine Rfgdcjvv3883-43-67 23:42:00* Test Item Value Reference Range Interpretation Comments Urine Bacteria (test code = 96638-7) RARE NONE [facility]Urine Epithelial Pfwbm2513-08-72 23:42:00 * Test Item Value Reference Range Interpretation Comments Urine Epithelial Cells (test code = 71992-0) RARE NONE [facility] Bndst2362-99-39 23:39:00* Test Item Value Reference Range Interpretation Comments Sodium Level (test code = 2951-2) 135 136-145 L [facility]Potassium Jjzaf2513-08-19 23:39:00* Test Item Value Reference Range Interpretation Comments Potassium Level (test code = 2823-3) 4.3 3.5-5.1 [facility]Chloride Ibhft5147-87-27 23:39:00* Test Item Value Reference Range Interpretation Comments Chloride Level (test code = 2075-0) 99 98-107 [facility]Carbon Dioxide Avgcf8778-03-88 23:39:00* Test Item Value Reference Range Interpretation Comments Carbon Dioxide Level (test code = 2028-9) 25 22-29 [facility]Anion Yvq7807-59-77 23:39:00* Test Item Value Reference Range Interpretation Comments Anion Gap (test code = 38678-0) 15.3 8-16 [facility]Blood Urea Lxgaeyxy6233-24-22 23:39:00* Test Item Value Reference Range Interpretation Comments Blood Urea Nitrogen (test code = 3094-0) 33 7-26 H [facility]Creatinine2018-07-11 23:39:00* Test Item Value Reference Range Interpretation Comments Creatinine (test code = 2160-0) 1.41 0.57-1.11 H [facility]HealthBUN/Creatinine Eaoxo6236-34-62 23:39:00* Test Item Value Reference Range Interpretation Comments BUN/Creatinine Ratio (test code = 3097-3) 23 6-25 [facility]Estimat Glomerular Filtration Rate 2018-01-31 23:39:00* Test Item Value Reference Range Interpretation Comments Estimat Glomerular Filtration Rate (test code = 50728-4) 38 >60 L Ranges were taken from the National Kidney Disease Education Program and the [facility] Foundation literature.Reference ranges:60 or greater: Xairbs19-74 ( for 3 consecutive months): Chronic kidney disease 15 or less: Kidney failureAdventHealthGlucose Ugzud8488-21-29 23:39:00* Test Item Value Reference Range Interpretation Comments Glucose Level (test code = APW9760) 622 74-118 HH Results called to Ann Rodriguez at 2338 on 01/31/18 by Andreea Olivier. RB [place]. [facility]Calcium Yeiya7317-31-03 23:39:00* Test Item Value Reference Range Interpretation Comments Calcium Level (test code = 78335-7) 9.3 8.4-10.2 [facility]Magnesium Myznz9306-78-50 23:39:00* Test Item Value Reference Range Interpretation Comments Magnesium Level (test code = 90813-4) 2.0 1.3-2.1 [facility]HealthTotal Meutvkrvb2054-87-50 23:39:00* Test Item Value Reference Range Interpretation Comments Total Bilirubin (test code = 1975-2) 0.3 0.2-1.2 [facility]HealthAspartate Amino Transf (AST/SGOT) 2018-01-31 23:39:00* Test Item Value Reference Range Interpretation Comments Aspartate Amino Transf (AST/SGOT) (test code = Aspartate Amino Transf (AST/SGOT)) 10 5-34 [facility]HealthAlanine Aminotransferase (ALT/SGPT) 2018-01-31 23:39:00* Test Item Value Reference Range Interpretation Comments Alanine Aminotransferase (ALT/SGPT) (test code = 1742-6) 18 0-55 [facility]Total Hzwikhr5237-29-35 23:39:00* Test Item Value Reference Range Interpretation Comments Total Protein (test code = 2885-2) 6.7 6.5-8.1 [facility]Albumin2018-07-11 23:39:00* Test Item Value Reference Range Interpretation Comments Albumin (test code = 1751-7) 3.4 3.5-5.0 L [facility]Globulin2018-07-11 23:39:00* Test Item Value Reference Range Interpretation Comments Globulin (test code = 32767-4) 3.3 2.3-3.5 [facility]HealthAlbumin/Globulin Olgdv3332-89-04 23:39:00 * Test Item Value Reference Range Interpretation Comments Albumin/Globulin Ratio (test code = 1759-0) 1.0 0.8-2.0 [facility]Alkaline Ndeopvhwnek7844-91-80 23:39:00* Test Item Value Reference Range Interpretation Comments Alkaline Phosphatase (test code = 6768-6) 63 40-150 [facility]Creatine Ngmffa9860-58-25 23:39:00* Test Item Value Reference Range Interpretation Comments Creatine Kinase (test code = 2157-6) 40 29-168 [facility]HealthProthrombin Xebl1001-08-61 23:34:00* Test Item Value Reference Range Interpretation Comments Prothrombin Time (test code = 5902-2) 13.5 11.9-14.5 [facility]HealthProthromb Time International Ratio 2018-01-31 23:34:00* Test Item Value Reference Range Interpretation Comments Prothromb Time International Ratio (test code = 6301-6) 1.11 Oral Anticoagulant Therapy INR Values:1. Low Intensity Therapy 1.5 - 2.02 . Moderate Intensity Therapy 2.0 - 3.03. High Intensity Therapy(1) 2.5 - 3. 54. High Intensity Therapy(2) 3.0 - 4.05. Panic Value INR > 5.0 [facility]Activated Partial Thromboplast Time 2018-01-31 23:34:00* Test Item Value Reference Range Interpretation Comments Activated Partial Thromboplast Time (test code = 87369-3) 23.4 23.8-35.5 L [facility]Urine Kicob9734-26-03 23:34:00* Test Item Value Reference Range Interpretation Comments Urine Color (test code = 5778-6) YELLOW YELLOW [facility]Urine Afdhlqp4956-98-28 23:34:00* Test Item Value Reference Range Interpretation Comments Urine Clarity (test code = 19978-7) CLEAR CLEAR [facility]Urine Specific Kiymeau3791-06-71 23:34:00 * Test Item Value Reference Range Interpretation Comments Urine Specific [place] (test code = 5811-5) 1.010 1.010-1.02 5 [facility]Urine dF2749-55-56 23:34:00* Test Item Value Reference Range Interpretation Comments Urine pH (test code = 13973-2) 6 5-7 [facility] Leukocyte Jtjprogl2460-74-39 23:34:00* Test Item Value Reference Range Interpretation Comments Urine Leukocyte Esterase (test code = 5799-2) NEGATIVE NEGATIVE [facility]Urine Jsxkzta3437-68-35 23:34:00* Test Item Value Reference Range Interpretation Comments Urine Nitrite (test code = 58159-4) NEGATIVE NEGATIVE [facility]Urine Irmfuij6959-88-64 23:34:00* Test Item Value Reference Range Interpretation Comments Urine Protein (test code = 5804-0) NEGATIVE NEGATIVE [facility]Urine Glucose (UA)2018-01-31 23:34:00* Test Item Value Reference Range Interpretation Comments Urine Glucose (UA) (test code = 2349-9) 3+ NEGATIVE H [facility]Urine Kseuzkj4256-45-30 23:34:00* Test Item Value Reference Range Interpretation Comments Urine Ketones (test code = 08646-9) NEGATIVE NEGATIVE [facility]Urine Agyghppjfgja1556-49-43 23:34:00* Test Item Value Reference Range Interpretation Comments Urine Urobilinogen (test code = 03436-1) 0.2 0.2-1 [facility]Urine Aivsenqnc0468-94-61 23:34:00* Test Item Value Reference Range Interpretation Comments Urine Bilirubin (test code = 1978-6) NEGATIVE NEGATIVE [facility]Urine Numoj5530-00-72 23:34:00* Test Item Value Reference Range Interpretation Comments Urine Blood (test code = 65635-5) NEGATIVE NEGATIVE [facility]HealthProthrombin Asyw8298-49-81 23:34:00* Test Item Value Reference Range Interpretation Comments Prothrombin Time (test code = 5902-2) 13.5 11.9-14.5 [facility]HealthProthromb Time International Ratio 2018-01-31 23:34:00* Test Item Value Reference Range Interpretation Comments Prothromb Time International Ratio (test code = 6301-6) 1.11 Oral Anticoagulant Therapy INR Values:1. Low Intensity Therapy 1.5 - 2.02 . Moderate Intensity Therapy 2.0 - 3.03. High Intensity Therapy(1) 2.5 - 3. 54. High Intensity Therapy(2) 3.0 - 4.05. Panic Value INR > 5.0 [facility]Activated Partial Thromboplast Time 2018-01-31 23:34:00* Test Item Value Reference Range Interpretation Comments Activated Partial Thromboplast Time (test code = 81741-4) 23.4 23.8-35.5 L [facility]HealthProthrombin Tbtl5758-80-49 23:34:00* Test Item Value Reference Range Interpretation Comments Prothrombin Time (test code = 5902-2) 13.5 11.9-14.5 [facility]HealthProthromb Time International Ratio 2018-01-31 23:34:00* Test Item Value Reference Range Interpretation Comments Prothromb Time International Ratio (test code = 6301-6) 1.11 Oral Anticoagulant Therapy INR Values:1. Low Intensity Therapy 1.5 - 2.02 . Moderate Intensity Therapy 2.0 - 3.03. High Intensity Therapy(1) 2.5 - 3. 54. High Intensity Therapy(2) 3.0 - 4.05. Panic Value INR > 5.0 [facility]Activated Partial Thromboplast Time 2018-01-31 23:34:00* Test Item Value Reference Range Interpretation Comments Activated Partial Thromboplast Time (test code = 87030-8) 23.4 23.8-35.5 L [facility]HealthProthrombin Rpuo7989-43-77 23:34:00* Test Item Value Reference Range Interpretation Comments Prothrombin Time (test code = 5902-2) 13.5 11.9-14.5 [facility]HealthProthromb Time International Ratio 2018-01-31 23:34:00* Test Item Value Reference Range Interpretation Comments Prothromb Time International Ratio (test code = 6301-6) 1.11 Oral Anticoagulant Therapy INR Values:1. Low Intensity Therapy 1.5 - 2.02 . Moderate Intensity Therapy 2.0 - 3.03. High Intensity Therapy(1) 2.5 - 3. 54. High Intensity Therapy(2) 3.0 - 4.05. Panic Value INR > 5.0 [facility]Activated Partial Thromboplast Time 2018-01-31 23:34:00* Test Item Value Reference Range Interpretation Comments Activated Partial Thromboplast Time (test code = 33000-7) 23.4 23.8-35.5 L [facility]HealthCHEST SINGLE (PORTABLE)2018-01-31 23:25:00 [facility] [address] [place] [address] Patient Name: KALYANI TALAVERA MR #: [id number] : 1955 Age/Sex: 62/F Req #: [id number] Adm Physician: Ordered by: FLO TOLBERT MD Report #: [id number] Location: ER Room/Bed: Procedure: [id number] DX/CHEST SINGLE (PORTABLE) E xam Date: 01/31/18 [...] COPY TO: FLO TOLBERT MD White Blood Pxagp9337-57-58 23:20:00* Test Item Value Reference Range Interpretation Comments White Blood Count (test code = 6690-2) 5.55 4.8-10.8 [facility]HealthRed Blood Lxndl3754-64-29 23:20:00* Test Item Value Reference Range Interpretation Comments Red Blood Count (test code = 789-8) 4.21 3.6-5.1 [facility]HealthHemoglobin2018-07-11 23:20:00* Test Item Value Reference Range Interpretation Comments Hemoglobin (test code = 48131-2) 10.6 12.0-16.0 L [facility]HealthHematocrit2018-07-11 23:20:00* Test Item Value Reference Range Interpretation Comments Hematocrit (test code = 4544-3) 34.8 34.2-44.1 [facility]HealthMean Corpuscular Hoodew8948-97-77 23:20:00* Test Item Value Reference Range Interpretation Comments Mean Corpuscular Volume (test code = 787-2) 82.7 81-99 [facility]Mean Corpuscular Qyiqogvfzr6072-73-53 23:20:00* Test Item Value Reference Range Interpretation Comments Mean Corpuscular Hemoglobin (test code = 785-6) 25.2 28-32 L [facility]HealthMean Corpuscular Hemoglobin Concent 2018-01-31 23:20:00* Test Item Value Reference Range Interpretation Comments Mean Corpuscular Hemoglobin Concent (test code = 786-4) 30.5 31-35 L [facility]HealthRed Cell Distribution Cvyan4171-41-85 23:20:00* Test Item Value Reference Range Interpretation Comments Red Cell Distribution Width (test code = 63826-4) 15.5 11.7 -14.4 H [facility]HealthPlatelet Aldrn4166-83-57 23:20:00* Test Item Value Reference Range Interpretation Comments Platelet Count (test code = 777-3) 176 140-360 [facility]HealthNeutrophils (%) (Auto)2018-01-31 23:20:00 * Test Item Value Reference Range Interpretation Comments Neutrophils (%) (Auto) (test code = 30922-1) 68.7 38.7-80.0 [facility]Lymphocytes (%) (Auto)2018-01-31 23:20:00 * Test Item Value Reference Range Interpretation Comments Lymphocytes (%) (Auto) (test code = 736-9) 21.8 18.0-39.1 [facility]HealthMonocytes (%) (Auto)2018-01-31 23:20:00* Test Item Value Reference Range Interpretation Comments Monocytes (%) (Auto) (test code = 5905-5) 5.0 4.4-11.3 [facility]Eosinophils (%) (Auto)2018-01-31 23:20:00 * Test Item Value Reference Range Interpretation Comments Eosinophils (%) (Auto) (test code = 713-8) 2.5 0.0-6.0 [facility]Basophils (%) (Auto)2018-01-31 23:20:00* Test Item Value Reference Range Interpretation Comments Basophils (%) (Auto) (test code = 706-2) 0.9 0.0-1.0 [facility]HealthIM GRANULOCYTES %2018-01-31 23:20:00* Test Item Value Reference Range Interpretation Comments IM GRANULOCYTES % (test code = IM GRANULOCYTES %) 1.1 0.0- 1.0 H [facility]HealthNeutrophils # (Auto)2018-01-31 23:20:00* Test Item Value Reference Range Interpretation Comments Neutrophils # (Auto) (test code = 751-8) 3.8 2.1-6.9 [facility]Lymphocytes # (Auto)2018-01-31 23:20:00* Test Item Value Reference Range Interpretation Comments Lymphocytes # (Auto) (test code = 72288-3) 1.2 1.0-3.2 [facility]HealthMonocytes # (Auto)2018-01-31 23:20:00* Test Item Value Reference Range Interpretation Comments Monocytes # (Auto) (test code = 742-7) 0.3 0.2-0.8 [facility]HealthEosinophils # (Auto)2018-01-31 23:20:00* Test Item Value Reference Range Interpretation Comments Eosinophils # (Auto) (test code = 711-2) 0.1 0.0-0.4 [facility]HealthBasophils # (Auto)2018-01-31 23:20:00* Test Item Value Reference Range Interpretation Comments Basophils # (Auto) (test code = 704-7) 0.1 0.0-0.1 [facility]HealthAbsolute Immature Granulocyte (auto 2018-01-31 23:20:00* Test Item Value Reference Range Interpretation Comments Absolute Immature Granulocyte (auto (joseph t code = Absolute Immature Granulocyte (auto) 0.06 0-0.1 [facility] Iwlciuj9915-98-21 18:58:00* Test Item Value Reference Range Interpretation Comments Bedside Glucose (test code = 36804-6) 293 70-120 H Meter ID: [id number] [facility] Glucose 2017-12-28 14:17:00* Test Item Value Reference Range Interpretation Comments Bedside Glucose (test code = 66373-6) 330 70-120 H Meter ID: [id number] [facility] CenterKN[facility] RIGHT THREE EWFXK9435-23-59 10:49:00 [facility] [address] [place] [address] Patient Name: KALYANI TALAVERA MR #: [id number] : 1955 Age/Sex: 62/F Req #: [id number] Adm Physician: BENJAMIN MASTERS MD Ordered by: LUCILLE OLIVO MD Report #: [id number] Location: [facility] Room/Bed: [place] [address] Procedure: DX/KNEE RIGHT THREE VIEWS Exam Date: [...] Level (test code = 2951-2) 137 136-145 [facility]Potassium Vkxyg5635-86-69 09:24:00* Test Item Value Reference Range Interpretation Comments Potassium Level (test code = 2823-3) 4.5 3.5-5.1 [facility]HealthChloride Ubdod0469-91-09 09:24:00* Test Item Value Reference Range Interpretation Comments Chloride Level (test code = 2075-0) 102 98-107 [facility]HealthCarbon Dioxide Uehos1128-38-85 09:24:00* Test Item Value Reference Range Interpretation Comments Carbon Dioxide Level (test code = 2028-9) 28 22-29 [facility] Wjw1435-68-12 09:24:00* Test Item Value Reference Range Interpretation Comments Anion Gap (test code = 51048-3) 11.5 8-16 [facility] Urea Nocgmvgs1867-05-66 09:24:00* Test Item Value Reference Range Interpretation Comments Blood Urea Nitrogen (test code = 3094-0) 21 7-26 [facility]inine2018-06-04 09:24:00* Test Item Value Reference Range Interpretation Comments Creatinine (test code = 2160-0) 1.09 0.57-1.11 [facility]BUN/Creatinine Aeufb6453-00-74 09:24:00* Test Item Value Reference Range Interpretation Comments BUN/Creatinine Ratio (test code = 3097-3) 19 6-25 [facility] Glomerular Filtration Rate 2017-12-25 09:24:00* Test Item Value Reference Range Interpretation Comments Estimat Glomerular Filtration Rate (test code = 02431-6) 51 >60 L Ranges were taken from the National Kidney Disease Education Program and the [facility] literature.Reference ranges:60 or greater: Flqerx61-59 ( for 3 consecutive months): Chronic kidney disease 15 or less: Kidney failureAdventHealthGlucose Hcsjz9299-00-68 09:24:00* Test Item Value Reference Range Interpretation Comments Glucose Level (test code = CML9819) 458 74-118 HH Results called to RANCHO CONTI RN at 0924 on 12/25/17 by Audi Manriquez. RB [place].Thi s test has been rerun and double checked for accuracy.[facility]cium Rfhdi7686-86-74 09:24:00* Test Item Value Reference Range Interpretation Comments Calcium Level (test code = 65044-2) 9.0 8.4-10.2 [facility]ine Kinase LE3888-73-70 16:42:00* Test Item Value Reference Range Interpretation Comments Creatine Kinase MB (test code = 46176-2) 2.60 0-5.0 [facility]Troponin L2081-11-10 16:42:00* Test Item Value Reference Range Interpretation Comments Troponin I (test code = KHM2049) -0.001 0-0.300 [facility]ine Asgjjo0096-80-52 16:36:00* Test Item Value Reference Range Interpretation Comments Creatine Kinase (test code = 2157-6) 60 29-168 [facility]Total Janacycoi4526-16-06 08:48:00* Test Item Value Reference Range Interpretation Comments Total Bilirubin (test code = 1975-2) 0.3 0.2-1.2 [facility]Aspartate Amino Transf (AST/SGOT) 2017-12-24 08:48:00* Test Item Value Reference Range Interpretation Comments Aspartate Amino Transf (AST/SGOT) (test code = Aspartate Amino Transf (AST/SGOT)) 23 5-34 [facility]Alanine Aminotransferase (ALT/SGPT) 2017-12-24 08:48:00* Test Item Value Reference Range Interpretation Comments Alanine Aminotransferase (ALT/SGPT) (test code = 1742-6) 45 0-55 [facility]Total Gmzmqua9832-77-86 08:48:00* Test Item Value Reference Range Interpretation Comments Total Protein (test code = 2885-2) 6.3 6.5-8.1 L [facility]Albumin2018-06-03 08:48:00* Test Item Value Reference Range Interpretation Comments Albumin (test code = 1751-7) 3.2 3.5-5.0 L [facility]Globulin2018-06-03 08:48:00* Test Item Value Reference Range Interpretation Comments Globulin (test code = 22644-9) 3.1 2.3-3.5 [facility]Albumin/Globulin Bqnov6874-05-75 08:48:00 * Test Item Value Reference Range Interpretation Comments Albumin/Globulin Ratio (test code = 1759-0) 1.0 0.8-2.0 [facility]Alkaline Zsykuqxfmzx7774-65-43 08:48:00* Test Item Value Reference Range Interpretation Comments Alkaline Phosphatase (test code = 6768-6) 71 40-150 [facility]Triglycerides Lsexr5779-35-37 08:48:00* Test Item Value Reference Range Interpretation Comments Triglycerides Level (test code = 2571-8) 218 0-149 H [facility]olesterol Cfwux3176-44-09 08:48:00* Test Item Value Reference Range Interpretation Comments Cholesterol Level (test code = 2093-3) 168 0-199 Less than 200 mg/dL Low Tbpi659 - 239 mg/dL Borderline Duen142 m g/dl and greater High Risk [facility]LDL Gdhfytliohx4816-57-75 08:48:00* Test Item Value Reference Range Interpretation Comments LDL Cholesterol (test code = 2089-1) 96 60-130 [facility]HDL Urbimzdkqhh1883-46-88 08:48:00* Test Item Value Reference Range Interpretation Comments HDL Cholesterol (test code = 2085-9) 28 40-60 L [facility]Ch[facility]/HDL Ohckh6208-52-21 08:48:00 * Test Item Value Reference Range Interpretation Comments Cholesterol/HDL Ratio (test code = 9830-1) 6.0 3.0-3.6 H [facility]Triglycerides Ftqvy5887-29-75 08:48:00* Test Item Value Reference Range Interpretation Comments Triglycerides Level (test code = 2571-8) 218 0-149 H [facility] Hhcqm6575-95-01 08:48:00* Test Item Value Reference Range Interpretation Comments Cholesterol Level (test code = 2093-3) 168 0-199 Less than 200 mg/dL Low Ztqe974 - 239 mg/dL Borderline Etsl413 m g/dl and greater High Risk [facility]LDL Lgirqbmvexo0076-18-47 08:48:00* Test Item Value Reference Range Interpretation Comments LDL Cholesterol (test code = 2089-1) 96 60-130 [facility]HDL Pnjdrifbhcq1999-06-19 08:48:00* Test Item Value Reference Range Interpretation Comments HDL Cholesterol (test code = 2085-9) 28 40-60 L [facility]Cholesterol/HDL Cccrt1077-41-42 08:48:00 * Test Item Value Reference Range Interpretation Comments Cholesterol/HDL Ratio (test code = 9830-1) 6.0 3.0-3.6 H [facility]HealthWhite Blood Obvnk6365-69-43 08:25:00* Test Item Value Reference Range Interpretation Comments White Blood Count (test code = 6690-2) 3.93 4.8-10.8 L [facility]Red Blood Qfujz7898-91-46 08:25:00* Test Item Value Reference Range Interpretation Comments Red Blood Count (test code = 789-8) 4.06 3.6-5.1 [facility]Hemoglobin2018-06-03 08:25:00* Test Item Value Reference Range Interpretation Comments Hemoglobin (test code = 84663-9) 10.2 12.0-16.0 L [facility]Hematocrit2018-06-03 08:25:00* Test Item Value Reference Range Interpretation Comments Hematocrit (test code = 4544-3) 34.0 34.2-44.1 L [facility]HealthMean Corpuscular Nrufni9351-47-17 08:25:00* Test Item Value Reference Range Interpretation Comments Mean Corpuscular Volume (test code = 787-2) 83.7 81-99 [facility]Mean Corpuscular Lumnykspup0758-48-67 08:25:00* Test Item Value Reference Range Interpretation Comments Mean Corpuscular Hemoglobin (test code = 785-6) 25.1 28-32 [facility] Hem[facility] Concent 2017-12-24 08:25:00* Test Item Value Reference Range Interpretation Comments Mean Corpuscular Hemoglobin Concent (test code = 786-4) 30.0 31-35 L [facility]Red Cell Distribution Gxrxo0966-75-41 08:25:00* Test Item Value Reference Range Interpretation Comments Red Cell Distribution Width (test code = 27269-3) 15.2 11.7 -14.4 H [facility]Platelet Khewc3393-44-71 08:25:00* Test Item Value Reference Range Interpretation Comments Platelet Count (test code = 777-3) 169 140-360 [facility]Neutrophils (%) (Auto)2017-12-24 08:25:00 * Test Item Value Reference Range Interpretation Comments Neutrophils (%) (Auto) (test code = 38542-2) 59.0 38.7-80.0 [facility]Lymphocytes (%) (Auto)2017-12-24 08:25:00 * Test Item Value Reference Range Interpretation Comments Lymphocytes (%) (Auto) (test code = 736-9) 27.5 18.0-39.1 [facility]Monocytes (%) (Auto)2017-12-24 08:25:00* Test Item Value Reference Range Interpretation Comments Monocytes (%) (Auto) (test code = 5905-5) 6.6 4.4-11.3 [facility]Eosinophils (%) (Auto)2017-12-24 08:25:00 * Test Item Value Reference Range Interpretation Comments Eosinophils (%) (Auto) (test code = 713-8) 4.8 0.0-6.0 [facility]Basophils (%) (Auto)2017-12-24 08:25:00* Test Item Value Reference Range Interpretation Comments Basophils (%) (Auto) (test code = 706-2) 1.3 0.0-1.0 H [facility]HealthIM GRANULOCYTES %2017-12-24 08:25:00* Test Item Value Reference Range Interpretation Comments IM GRANULOCYTES % (test code = IM GRANULOCYTES %) 0.8 0.0- 1.0 [facility]Neutrophils # (Auto)2017-12-24 08:25:00* Test Item Value Reference Range Interpretation Comments Neutrophils # (Auto) (test code = 751-8) 2.3 2.1-6.9 [facility]Lymphocytes # (Auto)2017-12-24 08:25:00* Test Item Value Reference Range Interpretation Comments Lymphocytes # (Auto) (test code = 70914-1) 1.1 1.0-3.2 [facility]Monocytes # (Auto)2017-12-24 08:25:00* Test Item Value Reference Range Interpretation Comments Monocytes # (Auto) (test code = 742-7) 0.3 0.2-0.8 [facility]Eosinophils # (Auto)2017-12-24 08:25:00* Test Item Value Reference Range Interpretation Comments Eosinophils # (Auto) (test code = 711-2) 0.2 0.0-0.4 [facility]Basophils # (Auto)2017-12-24 08:25:00* Test Item Value Reference Range Interpretation Comments Basophils # (Auto) (test code = 704-7) 0.1 0.0-0.1 [facility]Absolute Immature Granulocyte (auto 2017-12-24 08:25:00* Test Item Value Reference Range Interpretation Comments Absolute Immature Granulocyte (auto (joseph t code = Absolute Immature Granulocyte (auto) 0.03 0-0.1 [facility]B-Type Natriuretic Azvsshy6720-24-49 23:03:00* Test Item Value Reference Range Interpretation Comments B-Type Natriuretic Peptide (test code = 12719-2) 125.0 0-100 H [facility]HealthThyroid Stimulating Hormone (TSH) 2017-12-23 22:39:00* Test Item Value Reference Range Interpretation Comments Thyroid Stimulating Hormone (TSH) (test code = 20367-5) 0.865 0.350-4.940 [facility]Thyroid Stimulating Hormone (TSH) 2017-12-23 22:39:00* Test Item Value Reference Range Interpretation Comments Thyroid Stimulating Hormone (TSH) (test code = 15854-0) 0.865 0.350-4.940 [facility]Thyroid Stimulating Hormone (TSH) 2017-12-23 22:39:00* Test Item Value Reference Range Interpretation Comments Thyroid Stimulating Hormone (TSH) (test code = 90533-0) 0.865 0.350-4.940 [facility]Thyroid Stimulating Hormone (TSH) 2017-12-23 22:39:00* Test Item Value Reference Range Interpretation Comments Thyroid Stimulating Hormone (TSH) (test code = 13069-8) 0.865 0.350-4.940 [facility]Thyroid Stimulating Hormone (TSH) 2017-12-23 22:39:00* Test Item Value Reference Range Interpretation Comments Thyroid Stimulating Hormone (TSH) (test code = 76442-2) 0.865 0.350-4.940 [facility]Thyroid Stimulating Hormone (TSH) 2017-12-23 22:39:00* Test Item Value Reference Range Interpretation Comments Thyroid Stimulating Hormone (TSH) (test code = 22342-6) 0.865 0.350-4.940 [facility]Thyroid Stimulating Hormone (TSH) 2017-12-23 22:39:00* Test Item Value Reference Range Interpretation Comments Thyroid Stimulating Hormone (TSH) (test code = 81844-5) 0.865 0.350-4.940 [facility]Urine JPP3843-49-07 22:23:00* Test Item Value Reference Range Interpretation Comments Urine WBC (test code = 5821-4) 0-5 0-5 [facility]Urine KHZ5954-10-53 22:23:00* Test Item Value Reference Range Interpretation Comments Urine RBC (test code = 93204-7) 0-5 0-5 [facility]Urine Bdjvapxn5256-29-57 22:23:00* Test Item Value Reference Range Interpretation Comments Urine Bacteria (test code = 73763-3) RARE NONE [facility]Urine Epithelial Dciqt3565-79-99 22:23:00 * Test Item Value Reference Range Interpretation Comments Urine Epithelial Cells (test code = 28510-3) RARE NONE [facility]Urine Fpsgz1528-78-51 22:04:00* Test Item Value Reference Range Interpretation Comments Urine Color (test code = 5778-6) YELLOW YELLOW [facility]Urine Rvfimdn9180-57-65 22:04:00* Test Item Value Reference Range Interpretation Comments Urine Clarity (test code = 74181-7) CLEAR CLEAR [facility]Urine Specific Sfowbqi7902-54-05 22:04:00 * Test Item Value Reference Range Interpretation Comments Urine Specific [place] (test code = 5811-5) 1.010 1.010-1.02 5 [facility]Urine uS8882-55-38 22:04:00* Test Item Value Reference Range Interpretation Comments Urine pH (test code = 95979-4) 6 5-7 [facility] Leukocyte Yaynieox5118-19-25 22:04:00* Test Item Value Reference Range Interpretation Comments Urine Leukocyte Esterase (test code = 5799-2) NEGATIVE NEGATIVE [facility] Pgwjxqe2555-58-13 22:04:00* Test Item Value Reference Range Interpretation Comments Urine Nitrite (test code = 64132-6) NEGATIVE NEGATIVE [facility] Nzveaao7972-81-40 22:04:00* Test Item Value Reference Range Interpretation Comments Urine Protein (test code = 5804-0) NEGATIVE NEGATIVE [facility]Urine Glucose (UA)2017-12-23 22:04:00* Test Item Value Reference Range Interpretation Comments Urine Glucose (UA) (test code = 2349-9) 3+ NEGATIVE H [facility]Urine Ngmmolu6054-54-52 22:04:00* Test Item Value Reference Range Interpretation Comments Urine Ketones (test code = 61538-3) NEGATIVE NEGATIVE [facility] Lvxeatguuvlh9092-55-74 22:04:00* Test Item Value Reference Range Interpretation Comments Urine Urobilinogen (test code = 48659-4) 0.2 0.2-1 [facility]Urine Jcynzezwd5163-40-93 22:04:00* Test Item Value Reference Range Interpretation Comments Urine Bilirubin (test code = 1978-6) NEGATIVE NEGATIVE [facility] Pjolf7247-56-19 22:04:00* Test Item Value Reference Range Interpretation Comments Urine Blood (test code = 61429-3) NEGATIVE NEGATIVE [facility]Magnesium Yqyyt7076-99-76 22:03:00* Test Item Value Reference Range Interpretation Comments Magnesium Level (test code = 74988-3) 1.8 1.3-2.1 [facility]Prothrombin Vbds8087-98-02 21:58:00* Test Item Value Reference Range Interpretation Comments Prothrombin Time (test code = 5902-2) 13.6 11.9-14.5 [facility]Prothromb Time International Ratio 2017-12-23 21:58:00* Test Item Value Reference Range Interpretation Comments Prothromb Time International Ratio (test code = 6301-6) 1.13 Oral Anticoagulant Therapy INR Values:1. Low Intensity Therapy 1.5 - 2.02 . Moderate Intensity Therapy 2.0 - 3.03. High Intensity Therapy(1) 2.5 - 3. 54. High Intensity Therapy(2) 3.0 - 4.05. Panic Value INR > 5.0 [facility]Activated Partial Thromboplast Time 2017-12-23 21:58:00* Test Item Value Reference Range Interpretation Comments Activated Partial Thromboplast Time (test code = 30084-2) 23.8 23.8-35.5 [facility]2018-03-27 00:04:00* Test Item Value Reference Range Interpretation Comments Blood Culture (test code = 43551840) NO GROWTH AFTER 5 DAYS, FINAL REPORT [facility]2018-03-27 00:04:00* Test Item Value Reference Range Interpretation Comments Blood Culture (test code = 14008159) NO GROWTH AFTER 5 DAYS, FINAL REPORT [facility]2018-03-27 00:04:00* Test Item Value Reference Range Interpretation Comments Blood Culture (test code = 45200809) NO GROWTH AFTER 5 DAYS, FINAL REPORT [facility]2018-03-27 00:04:00* Test Item Value Reference Range Interpretation Comments Blood Culture (test code = 16298465) NO GROWTH AFTER 5 DAYS, FINAL REPORT [facility]2018-03-27 00:04:00* Test Item Value Reference Range Interpretation Comments Blood Culture (test code = 30634946) NO GROWTH AFTER 5 DAYS, FINAL REPORT [facility]2018-03-27 00:04:00* Test Item Value Reference Range Interpretation Comments Blood Culture (test code = 71599622) NO GROWTH AFTER 5 DAYS, FINAL REPORT [facility]2018-03-27 00:04:00* Test Item Value Reference Range Interpretation Comments Blood Culture (test code = 18964791) NO GROWTH AFTER 5 DAYS, FINAL REPORT [facility]2018-03-27 00:04:00* Test Item Value Reference Range Interpretation Comments Blood Culture (test code = 49915573) NO GROWTH AFTER 5 DAYS, FINAL REPORT [facility]2018-03-27 00:04:00* Test Item Value Reference Range Interpretation Comments Blood Culture (test code = 90664430) NO GROWTH AFTER 5 DAYS, FINAL REPORT [facility]2018-03-22 00:58:00* Test Item Value Reference Range Interpretation Comments Sodium Level (test code = 2951-2) 137 136-145 [facility]Potassium Fgupq1591-54-84 00:58:00* Test Item Value Reference Range Interpretation Comments Potassium Level (test code = 2823-3) 4.1 3.5-5.1 [facility]Chloride Vfwnn3673-43-35 00:58:00* Test Item Value Reference Range Interpretation Comments Chloride Level (test code = 2075-0) 105 98-107 [facility]Carbon Dioxide Ovdvb5888-54-49 00:58:00* Test Item Value Reference Range Interpretation Comments Carbon Dioxide Level (test code = 2028-9) 21 22-29 L [facility]Anion Lnp1329-87-16 00:58:00* Test Item Value Reference Range Interpretation Comments Anion Gap (test code = 79931-0) 15.1 8-16 [facility]Blood Urea Daqczybo5459-48-33 00:58:00* Test Item Value Reference Range Interpretation Comments Blood Urea Nitrogen (test code = 3094-0) 37 7-26 H [facility]Creatinine2018-03-22 00:58:00* Test Item Value Reference Range Interpretation Comments Creatinine (test code = 2160-0) 1.54 0.57-1.11 H [facility]HealthBUN/Creatinine Edyds1187-20-46 00:58:00* Test Item Value Reference Range Interpretation Comments BUN/Creatinine Ratio (test code = 3097-3) 24 6-25 [facility]Estim[facility] Glomerular Filtration Rate 2017-10-12 00:58:00* Test Item Value Reference Range Interpretation Comments Estimat Glomerular Filtration Rate (test code = 18088-3) 34 >60 L Ranges were taken from the National Kidney Disease Education Program and the [facility] literature.Reference ranges:60 or greater: Bjgwvu56-01 ( for 3 consecutive months): Chronic kidney disease 15 or less: Kidney failureAdventHealthGlucose Jheve5885-17-91 00:58:00* Test Item Value Reference Range Interpretation Comments Glucose Level (test code = LTB3183) 286 74-118 H [facility]Calcium Vaatu2441-53-45 00:58:00* Test Item Value Reference Range Interpretation Comments Calcium Level (test code = 26124-4) 8.7 8.4-10.2 [facility]Magnesium Mkirg7394-97-91 00:58:00* Test Item Value Reference Range Interpretation Comments Magnesium Level (test code = 45365-6) 1.6 1.3-2.1 [facility]Total Hvdqprjvt0509-41-15 00:58:00* Test Item Value Reference Range Interpretation Comments Total Bilirubin (test code = 1975-2) 0.3 0.2-1.2 [facility]HealthAspartate Amino Transf (AST/SGOT) 2017-10-12 00:58:00* Test Item Value Reference Range Interpretation Comments Aspartate Amino Transf (AST/SGOT) (test code = Aspartate Amino Transf (AST/SGOT)) 22 5-34 [facility]HealthAlanine Aminotransferase (ALT/SGPT) 2017-10-12 00:58:00* Test Item Value Reference Range Interpretation Comments Alanine Aminotransferase (ALT/SGPT) (test code = 1742-6) 24 0-55 [facility]Total Rgstost6188-33-67 00:58:00* Test Item Value Reference Range Interpretation Comments Total Protein (test code = 2885-2) 6.5 6.5-8.1 [facility]Albumin2018-03-22 00:58:00* Test Item Value Reference Range Interpretation Comments Albumin (test code = 1751-7) 3.2 3.5-5.0 L [facility]Globulin2018-03-22 00:58:00* Test Item Value Reference Range Interpretation Comments Globulin (test code = 66426-1) 3.3 2.3-3.5 [facility]Albumin/Globulin Igfyg5894-77-24 00:58:00 * Test Item Value Reference Range Interpretation Comments Albumin/Globulin Ratio (test code = 1759-0) 1.0 0.8-2.0 [facility]Alkaline Wgyhmiridgf8645-90-74 00:58:00* Test Item Value Reference Range Interpretation Comments Alkaline Phosphatase (test code = 6768-6) 69 40-150 [facility]HealthB-Type Natriuretic Qhjulwr3625-88-30 00:58:00* Test Item Value Reference Range Interpretation Comments B-Type Natriuretic Peptide (test code = 76076-4) 46.4 0-100 [facility]Creatine Crtexa8443-32-31 00:58:00* Test Item Value Reference Range Interpretation Comments Creatine Kinase (test code = 2157-6) 86 29-168 [facility]Creatine Kinase MU7096-26-44 00:58:00* Test Item Value Reference Range Interpretation Comments Creatine Kinase MB (test code = 76280-6) 3.00 0-5.0 [facility]Troponin Z5093-26-29 00:58:00* Test Item Value Reference Range Interpretation Comments Troponin I (test code = NWG8957) -0.001 0-0.300 [facility] Wzdae9153-45-25 00:58:00* Test Item Value Reference Range Interpretation Comments Sodium Level (test code = 2951-2) 137 136-145 [facility]Potassium Crvkm3997-13-64 00:58:00* Test Item Value Reference Range Interpretation Comments Potassium Level (test code = 2823-3) 4.1 3.5-5.1 [facility]Chloride Qlvmk2514-76-93 00:58:00* Test Item Value Reference Range Interpretation Comments Chloride Level (test code = 2075-0) 105 98-107 [facility]Carbon Dioxide Alpbr8629-19-25 00:58:00* Test Item Value Reference Range Interpretation Comments Carbon Dioxide Level (test code = 2028-9) 21 22-29 L [facility]Anion Ljv1903-42-42 00:58:00* Test Item Value Reference Range Interpretation Comments Anion Gap (test code = 11921-3) 15.1 8-16 [facility]Blood Urea Cqckoxju7155-05-66 00:58:00* Test Item Value Reference Range Interpretation Comments Blood Urea Nitrogen (test code = 3094-0) 37 7-26 H [facility]Creatinine2018-03-22 00:58:00* Test Item Value Reference Range Interpretation Comments Creatinine (test code = 2160-0) 1.54 0.57-1.11 H [facility]BUN/Creatinine Wjusd9665-92-26 00:58:00* Test Item Value Reference Range Interpretation Comments BUN/Creatinine Ratio (test code = 3097-3) 24 6-25 [facility]Estim[facility] Glomerular Filtration Rate 2017-10-12 00:58:00* Test Item Value Reference Range Interpretation Comments Estimat Glomerular Filtration Rate (test code = 99381-7) 34 >60 L Ranges were taken from the National Kidney Disease Education Program and the [facility] literature.Reference ranges:60 or greater: Apzxxz08-68 ( for 3 consecutive months): Chronic kidney disease 15 or less: Kidney failureAdventHealthGlucose Hijqw1196-52-18 00:58:00* Test Item Value Reference Range Interpretation Comments Glucose Level (test code = ZKE4161) 286 74-118 H [facility]Calcium Pugwe8704-98-88 00:58:00* Test Item Value Reference Range Interpretation Comments Calcium Level (test code = 83271-9) 8.7 8.4-10.2 [facility]Magnesium Heyba6970-66-52 00:58:00* Test Item Value Reference Range Interpretation Comments Magnesium Level (test code = 90628-2) 1.6 1.3-2.1 [facility]Total Gkvhspnvv8214-36-01 00:58:00* Test Item Value Reference Range Interpretation Comments Total Bilirubin (test code = 1975-2) 0.3 0.2-1.2 [facility]HealthAspartate Amino Transf (AST/SGOT) 2017-10-12 00:58:00* Test Item Value Reference Range Interpretation Comments Aspartate Amino Transf (AST/SGOT) (test code = Aspartate Amino Transf (AST/SGOT)) 22 5-34 [facility]HealthAlanine Aminotransferase (ALT/SGPT) 2017-10-12 00:58:00* Test Item Value Reference Range Interpretation Comments Alanine Aminotransferase (ALT/SGPT) (test code = 1742-6) 24 0-55 [facility]Total Cnsvjxi8406-49-99 00:58:00* Test Item Value Reference Range Interpretation Comments Total Protein (test code = 2885-2) 6.5 6.5-8.1 [facility]Albumin2018-03-22 00:58:00* Test Item Value Reference Range Interpretation Comments Albumin (test code = 1751-7) 3.2 3.5-5.0 L [facility]Globulin2018-03-22 00:58:00* Test Item Value Reference Range Interpretation Comments Globulin (test code = 64330-5) 3.3 2.3-3.5 [facility]Albumin/Globulin Javdf7234-38-33 00:58:00 * Test Item Value Reference Range Interpretation Comments Albumin/Globulin Ratio (test code = 1759-0) 1.0 0.8-2.0 [facility]Alkaline Ybjgzpbrloh4700-99-45 00:58:00* Test Item Value Reference Range Interpretation Comments Alkaline Phosphatase (test code = 6768-6) 69 40-150 [facility]HealthB-Type Natriuretic Jlqdurr5531-18-43 00:58:00* Test Item Value Reference Range Interpretation Comments B-Type Natriuretic Peptide (test code = 26783-0) 46.4 0-100 [facility]Creatine Vywsnr6010-09-48 00:58:00* Test Item Value Reference Range Interpretation Comments Creatine Kinase (test code = 2157-6) 86 29-168 [facility]Creatine Kinase QU9672-95-21 00:58:00* Test Item Value Reference Range Interpretation Comments Creatine Kinase MB (test code = 38995-0) 3.00 0-5.0 [facility]Troponin Y6576-33-22 00:58:00* Test Item Value Reference Range Interpretation Comments Troponin I (test code = MGD9386) -0.001 0-0.300 [facility] Cdixs2104-15-88 00:58:00* Test Item Value Reference Range Interpretation Comments Sodium Level (test code = 2951-2) 137 136-145 [facility]Potassium Fxmhu1694-07-36 00:58:00* Test Item Value Reference Range Interpretation Comments Potassium Level (test code = 2823-3) 4.1 3.5-5.1 [facility]Chloride Idier8871-68-18 00:58:00* Test Item Value Reference Range Interpretation Comments Chloride Level (test code = 2075-0) 105 98-107 [facility]Carbon Dioxide Oerrf5760-19-48 00:58:00* Test Item Value Reference Range Interpretation Comments Carbon Dioxide Level (test code = 2028-9) 21 22-29 L [facility] Bxw1191-98-36 00:58:00* Test Item Value Reference Range Interpretation Comments Anion Gap (test code = 99058-2) 15.1 8-16 [facility] Urea Xcitaacj5589-07-49 00:58:00* Test Item Value Reference Range Interpretation Comments Blood Urea Nitrogen (test code = 3094-0) 37 7-26 H [facility]Creatinine2018-03-22 00:58:00* Test Item Value Reference Range Interpretation Comments Creatinine (test code = 2160-0) 1.54 0.57-1.11 H [facility]BUN/Creatinine Afidq6438-43-62 00:58:00* Test Item Value Reference Range Interpretation Comments BUN/Creatinine Ratio (test code = 3097-3) 24 6-25 [facility]Estimat Glomerular Filtration Rate 2017-10-12 00:58:00* Test Item Value Reference Range Interpretation Comments Estimat Glomerular Filtration Rate (test code = 16541-3) 34 >60 L Ranges were taken from the National Kidney Disease Education Program and the [facility] literature.Reference ranges:60 or greater: Ugcipn52-93 ( for 3 consecutive months): Chronic kidney disease 15 or less: Kidney failureAdventHealthGlucose Bylml9926-33-99 00:58:00* Test Item Value Reference Range Interpretation Comments Glucose Level (test code = IXD3399) 286 74-118 H [facility]cium Txhbw2774-51-65 00:58:00* Test Item Value Reference Range Interpretation Comments Calcium Level (test code = 88285-4) 8.7 8.4-10.2 [facility]Magnesium Tsqfi8541-96-22 00:58:00* Test Item Value Reference Range Interpretation Comments Magnesium Level (test code = 72479-9) 1.6 1.3-2.1 [facility]Total Eqlxmpxwo6336-39-15 00:58:00* Test Item Value Reference Range Interpretation Comments Total Bilirubin (test code = 1975-2) 0.3 0.2-1.2 [facility]Aspartate Amino Transf (AST/SGOT) 2017-10-12 00:58:00* Test Item Value Reference Range Interpretation Comments Aspartate Amino Transf (AST/SGOT) (test code = Aspartate Amino Transf (AST/SGOT)) 22 5-34 [facility]Alanine Aminotransferase (ALT/SGPT) 2017-10-12 00:58:00* Test Item Value Reference Range Interpretation Comments Alanine Aminotransferase (ALT/SGPT) (test code = 1742-6) 24 0-55 [facility]Total Afbygai6571-89-99 00:58:00* Test Item Value Reference Range Interpretation Comments Total Protein (test code = 2885-2) 6.5 6.5-8.1 [facility]Albumin2018-03-22 00:58:00* Test Item Value Reference Range Interpretation Comments Albumin (test code = 1751-7) 3.2 3.5-5.0 L [facility]Globulin2018-03-22 00:58:00* Test Item Value Reference Range Interpretation Comments Globulin (test code = 87962-9) 3.3 2.3-3.5 [facility]Albumin/Globulin Jcqzh2910-13-26 00:58:00 * Test Item Value Reference Range Interpretation Comments Albumin/Globulin Ratio (test code = 1759-0) 1.0 0.8-2.0 [facility]Alkaline Guoznzmnytk8398-02-58 00:58:00* Test Item Value Reference Range Interpretation Comments Alkaline Phosphatase (test code = 6768-6) 69 40-150 [facility]B-Type Natriuretic Gdjhyvs6401-67-22 00:58:00* Test Item Value Reference Range Interpretation Comments B-Type Natriuretic Peptide (test code = 32802-3) 46.4 0-100 [facility]Creatine Wtcfjq5203-27-95 00:58:00* Test Item Value Reference Range Interpretation Comments Creatine Kinase (test code = 2157-6) 86 29-168 [facility] Kinase FT8356-57-78 00:58:00* Test Item Value Reference Range Interpretation Comments Creatine Kinase MB (test code = 49289-1) 3.00 0-5.0 [facility]Troponin J1299-10-04 00:58:00* Test Item Value Reference Range Interpretation Comments Troponin I (test code = YGS2796) -0.001 0-0.300 [facility]Lactic Acid Feffb8485-29-11 00:40:00* Test Item Value Reference Range Interpretation Comments Lactic Acid Level (test code = Lactic Acid Level) 14.6 4.5- 19.8 [facility]Lactic Acid Hyxid3049-91-32 00:40:00* Test Item Value Reference Range Interpretation Comments Lactic Acid Level (test code = Lactic Acid Level) 14.6 4.5- 19.8 [facility] Acid Rdeyq7836-34-68 00:40:00* Test Item Value Reference Range Interpretation Comments Lactic Acid Level (test code = Lactic Acid Level) 14.6 4.5- 19.8 [facility]Lactic Acid Qdxzw7123-98-89 00:40:00* Test Item Value Reference Range Interpretation Comments Lactic Acid Level (test code = Lactic Acid Level) 14.6 4.5- 19.8 [facility]Lactic Acid Rsvhh2418-28-81 00:40:00* Test Item Value Reference Range Interpretation Comments Lactic Acid Level (test code = Lactic Acid Level) 14.6 4.5- 19.8 [facility]Lactic Acid Jxels3937-62-61 00:40:00* Test Item Value Reference Range Interpretation Comments Lactic Acid Level (test code = Lactic Acid Level) 14.6 4.5- 19.8 [facility]Lactic Acid Dhobj5322-98-20 00:40:00* Test Item Value Reference Range Interpretation Comments Lactic Acid Level (test code = Lactic Acid Level) 14.6 4.5- 19.8 [facility]Lactic Acid Ucnin7975-68-34 00:40:00* Test Item Value Reference Range Interpretation Comments Lactic Acid Level (test code = Lactic Acid Level) 14.6 4.5- 19.8 [facility]Urine TXI7457-34-22 00:38:00* Test Item Value Reference Range Interpretation Comments Urine WBC (test code = 5821-4) 0-5 0-5 [facility] WJY8436-64-94 00:38:00* Test Item Value Reference Range Interpretation Comments Urine RBC (test code = 38292-3) 0-5 0-5 [facility] Mqsysgcx6418-13-16 00:38:00* Test Item Value Reference Range Interpretation Comments Urine Bacteria (test code = 59804-3) RARE NONE [facility]Urine Epithelial Zjeah9520-26-64 00:38:00 * Test Item Value Reference Range Interpretation Comments Urine Epithelial Cells (test code = 43442-5) FEW NONE [facility] YDN3788-57-11 00:38:00* Test Item Value Reference Range Interpretation Comments Urine WBC (test code = 5821-4) 0-5 0-5 [facility] CRP9662-86-87 00:38:00* Test Item Value Reference Range Interpretation Comments Urine RBC (test code = 61757-6) 0-5 0-5 [facility] Kllqyaud6321-40-52 00:38:00* Test Item Value Reference Range Interpretation Comments Urine Bacteria (test code = 11919-1) RARE NONE [facility] Epithelial Pqjxb6481-84-67 00:38:00 * Test Item Value Reference Range Interpretation Comments Urine Epithelial Cells (test code = 81431-6) FEW NONE [facility] RVX8005-77-17 00:38:00* Test Item Value Reference Range Interpretation Comments Urine WBC (test code = 5821-4) 0-5 0-5 [facility] RBB6338-53-69 00:38:00* Test Item Value Reference Range Interpretation Comments Urine RBC (test code = 09386-8) 0-5 0-5 [facility] Zvykbvrj4301-72-94 00:38:00* Test Item Value Reference Range Interpretation Comments Urine Bacteria (test code = 48347-1) RARE NONE [facility] Epithelial Dbfzh6705-11-52 00:38:00 * Test Item Value Reference Range Interpretation Comments Urine Epithelial Cells (test code = 07089-6) FEW NONE [facility]Prothrombin Dgvj6869-71-70 00:31:00* Test Item Value Reference Range Interpretation Comments Prothrombin Time (test code = 5902-2) 12.5 11.9-14.5 [facility]Prothromb Time International Ratio 2017-10-12 00:31:00* Test Item Value Reference Range Interpretation Comments Prothromb Time International Ratio (test code = 6301-6) 1.01 Oral Anticoagulant Therapy INR Values:1. Low Intensity Therapy 1.5 - 2.02 . Moderate Intensity Therapy 2.0 - 3.03. High Intensity Therapy(1) 2.5 - 3. 54. High Intensity Therapy(2) 3.0 - 4.05. Panic Value INR > 5.0 [facility]Act[facility] Partial Thromboplast Time 2017-10-12 00:31:00* Test Item Value Reference Range Interpretation Comments Activated Partial Thromboplast Time (test code = 96710-6) 17.7 23.8-35.5 L [facility]Prothrombin Fqwe8268-80-98 00:31:00* Test Item Value Reference Range Interpretation Comments Prothrombin Time (test code = 5902-2) 12.5 11.9-14.5 [facility]Prothromb Time International Ratio 2017-10-12 00:31:00* Test Item Value Reference Range Interpretation Comments Prothromb Time International Ratio (test code = 6301-6) 1.01 Oral Anticoagulant Therapy INR Values:1. Low Intensity Therapy 1.5 - 2.02 . Moderate Intensity Therapy 2.0 - 3.03. High Intensity Therapy(1) 2.5 - 3. 54. High Intensity Therapy(2) 3.0 - 4.05. Panic Value INR > 5.0 [facility] Partial Thromboplast Time 2017-10-12 00:31:00* Test Item Value Reference Range Interpretation Comments Activated Partial Thromboplast Time (test code = 64410-1) 17.7 23.8-35.5 L [facility]Prothrombin Ryur6052-70-38 00:31:00* Test Item Value Reference Range Interpretation Comments Prothrombin Time (test code = 5902-2) 12.5 11.9-14.5 [facility]Prothromb Time International Ratio 2017-10-12 00:31:00* Test Item Value Reference Range Interpretation Comments Prothromb Time International Ratio (test code = 6301-6) 1.01 Oral Anticoagulant Therapy INR Values:1. Low Intensity Therapy 1.5 - 2.02 . Moderate Intensity Therapy 2.0 - 3.03. High Intensity Therapy(1) 2.5 - 3. 54. High Intensity Therapy(2) 3.0 - 4.05. Panic Value INR > 5.0 [facility] Partial Thromboplast Time 2017-10-12 00:31:00* Test Item Value Reference Range Interpretation Comments Activated Partial Thromboplast Time (test code = 68969-2) 17.7 23.8-35.5 L [facility]White Blood Oxpge8139-33-50 00:19:00* Test Item Value Reference Range Interpretation Comments White Blood Count (test code = 6690-2) 6.20 4.8-10.8 [facility]Red Blood Htxcd9739-37-36 00:19:00* Test Item Value Reference Range Interpretation Comments Red Blood Count (test code = 789-8) 4.11 3.6-5.1 [facility]Hemoglobin2018-03-22 00:19:00* Test Item Value Reference Range Interpretation Comments Hemoglobin (test code = 13846-4) 10.7 12.0-16.0 L [facility]Hematocrit2018-03-22 00:19:00* Test Item Value Reference Range Interpretation Comments Hematocrit (test code = 4544-3) 35.7 34.2-44.1 [facility] Corpuscular Bsjfaa5189-71-77 00:19:00* Test Item Value Reference Range Interpretation Comments Mean Corpuscular Volume (test code = 787-2) 86.9 81-99 [facility] Corpuscular Sopxmlugbu7098-76-40 00:19:00* Test Item Value Reference Range Interpretation Comments Mean Corpuscular Hemoglobin (test code = 785-6) 26.0 28-32 L [facility] Corpuscular Hemoglobin Concent 2017-10-12 00:19:00* Test Item Value Reference Range Interpretation Comments Mean Corpuscular Hemoglobin Concent (test code = 786-4) 30.0 31-35 L [facility]Red Cell Distribution Ksbnc9725-91-29 00:19:00* Test Item Value Reference Range Interpretation Comments Red Cell Distribution Width (test code = 04781-3) 15.1 11.7 -14.4 H [facility]Platelet Cmkjs6959-79-77 00:19:00* Test Item Value Reference Range Interpretation Comments Platelet Count (test code = 777-3) 186 140-360 [facility]Neutrophils (%) (Auto)2017-10-12 00:19:00 * Test Item Value Reference Range Interpretation Comments Neutrophils (%) (Auto) (test code = 41286-3) 65.3 38.7-80.0 [facility]Lymphocytes (%) (Auto)2017-10-12 00:19:00 * Test Item Value Reference Range Interpretation Comments Lymphocytes (%) (Auto) (test code = 736-9) 24.5 18.0-39.1 [facility]Monocytes (%) (Auto)2017-10-12 00:19:00* Test Item Value Reference Range Interpretation Comments Monocytes (%) (Auto) (test code = 5905-5) 5.5 4.4-11.3 [facility]Eosinophils (%) (Auto)2017-10-12 00:19:00 * Test Item Value Reference Range Interpretation Comments Eosinophils (%) (Auto) (test code = 713-8) 2.7 0.0-6.0 [facility]Basophils (%) (Auto)2017-10-12 00:19:00* Test Item Value Reference Range Interpretation Comments Basophils (%) (Auto) (test code = 706-2) 1.0 0.0-1.0 [facility]IM GRANULOCYTES %2017-10-12 00:19:00* Test Item Value Reference Range Interpretation Comments IM GRANULOCYTES % (test code = IM GRANULOCYTES %) 1.0 0.0- 1.0 [facility]Neutrophils # (Auto)2017-10-12 00:19:00* Test Item Value Reference Range Interpretation Comments Neutrophils # (Auto) (test code = 751-8) 4.1 2.1-6.9 [facility]Lymphocytes # (Auto)2017-10-12 00:19:00* Test Item Value Reference Range Interpretation Comments Lymphocytes # (Auto) (test code = 54685-2) 1.5 1.0-3.2 [facility]Monocytes # (Auto)2017-10-12 00:19:00* Test Item Value Reference Range Interpretation Comments Monocytes # (Auto) (test code = 742-7) 0.3 0.2-0.8 [facility]Eosinophils # (Auto)2017-10-12 00:19:00* Test Item Value Reference Range Interpretation Comments Eosinophils # (Auto) (test code = 711-2) 0.2 0.0-0.4 [facility]ophils # (Auto)2017-10-12 00:19:00* Test Item Value Reference Range Interpretation Comments Basophils # (Auto) (test code = 704-7) 0.1 0.0-0.1 [facility]Absolute Immature Granulocyte (auto 2017-10-12 00:19:00* Test Item Value Reference Range Interpretation Comments Absolute Immature Granulocyte (auto (joseph t code = Absolute Immature Granulocyte (auto) 0.06 0-0.1 [facility]Urine Pzoyy4648-67-50 00:19:00* Test Item Value Reference Range Interpretation Comments Urine Color (test code = 5778-6) YELLOW YELLOW [facility]Urine Emsxbnh6677-02-21 00:19:00* Test Item Value Reference Range Interpretation Comments Urine Clarity (test code = 18950-1) CLEAR CLEAR [facility]Urine Specific Ferzyfh4298-86-17 00:19:00 * Test Item Value Reference Range Interpretation Comments Urine Specific [place] (test code = 5811-5) 1.020 1.010-1.02 5 [facility]rine eG2905-55-13 00:19:00* Test Item Value Reference Range Interpretation Comments Urine pH (test code = 14217-3) 5 5-7 [facility] Leukocyte Qplkzqlv5756-60-69 00:19:00* Test Item Value Reference Range Interpretation Comments Urine Leukocyte Esterase (test code = 5799-2) NEGATIVE NEGATIVE [facility]Urine Namesqz0788-18-60 00:19:00* Test Item Value Reference Range Interpretation Comments Urine Nitrite (test code = 86262-7) NEGATIVE NEGATIVE [facility]rine Pnnjewa9172-82-63 00:19:00* Test Item Value Reference Range Interpretation Comments Urine Protein (test code = 5804-0) NEGATIVE NEGATIVE [facility]Urine Glucose (UA)2017-10-12 00:19:00* Test Item Value Reference Range Interpretation Comments Urine Glucose (UA) (test code = 2349-9) 3+ NEGATIVE H [facility]Urine Nnqpvts8901-67-24 00:19:00* Test Item Value Reference Range Interpretation Comments Urine Ketones (test code = 93148-5) NEGATIVE NEGATIVE [facility] Tnzfkcylifjc9699-17-98 00:19:00* Test Item Value Reference Range Interpretation Comments Urine Urobilinogen (test code = 97981-7) 0.2 0.2-1 [facility]rine Fhnvshknj1575-88-08 00:19:00* Test Item Value Reference Range Interpretation Comments Urine Bilirubin (test code = 1978-6) NEGATIVE NEGATIVE [facility]rine Glrgi6305-34-10 00:19:00* Test Item Value Reference Range Interpretation Comments Urine Blood (test code = 43662-8) 1+ NEGATIVE H [facility] Blood Sgzaj0043-56-62 00:19:00* Test Item Value Reference Range Interpretation Comments White Blood Count (test code = 6690-2) 6.20 4.8-10.8 [facility] Blood Lgmtb7149-50-23 00:19:00* Test Item Value Reference Range Interpretation Comments Red Blood Count (test code = 789-8) 4.11 3.6-5.1 [facility]Hemoglobin2018-03-22 00:19:00* Test Item Value Reference Range Interpretation Comments Hemoglobin (test code = 90097-1) 10.7 12.0-16.0 L [facility]Hematocrit2018-03-22 00:19:00* Test Item Value Reference Range Interpretation Comments Hematocrit (test code = 4544-3) 35.7 34.2-44.1 [facility]Mean Corpuscular Tmjbit1673-08-47 00:19:00* Test Item Value Reference Range Interpretation Comments Mean Corpuscular Volume (test code = 787-2) 86.9 81-99 [facility] Corpuscular Tipzfoibqg8509-67-59 00:19:00* Test Item Value Reference Range Interpretation Comments Mean Corpuscular Hemoglobin (test code = 785-6) 26.0 28-32 L [facility]Mean Corpuscular Hemoglobin Concent 2017-10-12 00:19:00* Test Item Value Reference Range Interpretation Comments Mean Corpuscular Hemoglobin Concent (test code = 786-4) 30.0 31-35 L [facility]Red Cell Distribution Mcuyq1306-53-84 00:19:00* Test Item Value Reference Range Interpretation Comments Red Cell Distribution Width (test code = 42488-8) 15.1 11.7 -14.4 H [facility]Platelet Watys3193-75-59 00:19:00* Test Item Value Reference Range Interpretation Comments Platelet Count (test code = 777-3) 186 140-360 [facility]Neutrophils (%) (Auto)2017-10-12 00:19:00 * Test Item Value Reference Range Interpretation Comments Neutrophils (%) (Auto) (test code = 31046-9) 65.3 38.7-80.0 [facility]Lymphocytes (%) (Auto)2017-10-12 00:19:00 * Test Item Value Reference Range Interpretation Comments Lymphocytes (%) (Auto) (test code = 736-9) 24.5 18.0-39.1 [facility]Monocytes (%) (Auto)2017-10-12 00:19:00* Test Item Value Reference Range Interpretation Comments Monocytes (%) (Auto) (test code = 5905-5) 5.5 4.4-11.3 [facility]Eosinophils (%) (Auto)2017-10-12 00:19:00 * Test Item Value Reference Range Interpretation Comments Eosinophils (%) (Auto) (test code = 713-8) 2.7 0.0-6.0 [facility]Basophils (%) (Auto)2017-10-12 00:19:00* Test Item Value Reference Range Interpretation Comments Basophils (%) (Auto) (test code = 706-2) 1.0 0.0-1.0 [facility]IM GRANULOCYTES %2017-10-12 00:19:00* Test Item Value Reference Range Interpretation Comments IM GRANULOCYTES % (test code = IM GRANULOCYTES %) 1.0 0.0- 1.0 [facility]utrophils # (Auto)2017-10-12 00:19:00* Test Item Value Reference Range Interpretation Comments Neutrophils # (Auto) (test code = 751-8) 4.1 2.1-6.9 [facility]Lymphocytes # (Auto)2017-10-12 00:19:00* Test Item Value Reference Range Interpretation Comments Lymphocytes # (Auto) (test code = 06710-9) 1.5 1.0-3.2 [facility]Monocytes # (Auto)2017-10-12 00:19:00* Test Item Value Reference Range Interpretation Comments Monocytes # (Auto) (test code = 742-7) 0.3 0.2-0.8 [facility]Eosinophils # (Auto)2017-10-12 00:19:00* Test Item Value Reference Range Interpretation Comments Eosinophils # (Auto) (test code = 711-2) 0.2 0.0-0.4 [facility]ophils # (Auto)2017-10-12 00:19:00* Test Item Value Reference Range Interpretation Comments Basophils # (Auto) (test code = 704-7) 0.1 0.0-0.1 [facility]Absolute Immature Granulocyte (auto 2017-10-12 00:19:00* Test Item Value Reference Range Interpretation Comments Absolute Immature Granulocyte (auto (joseph t code = Absolute Immature Granulocyte (auto) 0.06 0-0.1 [facility]rine Kxugr9036-45-55 00:19:00* Test Item Value Reference Range Interpretation Comments Urine Color (test code = 5778-6) YELLOW YELLOW [facility]Urine Fqjpjei6747-97-28 00:19:00* Test Item Value Reference Range Interpretation Comments Urine Clarity (test code = 23066-2) CLEAR CLEAR [facility]Urine Specific Qfxmscb6680-67-40 00:19:00 * Test Item Value Reference Range Interpretation Comments Urine Specific [place] (test code = 5811-5) 1.020 1.010-1.02 5 [facility] aX5911-53-56 00:19:00* Test Item Value Reference Range Interpretation Comments Urine pH (test code = 54950-8) 5 5-7 [facility] Leukocyte Wshtiiyl0624-61-17 00:19:00* Test Item Value Reference Range Interpretation Comments Urine Leukocyte Esterase (test code = 5799-2) NEGATIVE NEGATIVE [facility] Najarro0431-32-64 00:19:00* Test Item Value Reference Range Interpretation Comments Urine Nitrite (test code = 63118-4) NEGATIVE NEGATIVE [facility] Vlixxup2844-25-24 00:19:00* Test Item Value Reference Range Interpretation Comments Urine Protein (test code = 5804-0) NEGATIVE NEGATIVE [facility] Glucose (UA)2017-10-12 00:19:00* Test Item Value Reference Range Interpretation Comments Urine Glucose (UA) (test code = 2349-9) 3+ NEGATIVE H [facility] Vmujurt3556-16-23 00:19:00* Test Item Value Reference Range Interpretation Comments Urine Ketones (test code = 20383-8) NEGATIVE NEGATIVE [facility] Fsbwmmxeowlv5199-76-60 00:19:00* Test Item Value Reference Range Interpretation Comments Urine Urobilinogen (test code = 78113-9) 0.2 0.2-1 [facility] Dqfmvesyq5814-94-05 00:19:00* Test Item Value Reference Range Interpretation Comments Urine Bilirubin (test code = 1978-6) NEGATIVE NEGATIVE [facility]Urine Mohly4217-23-00 00:19:00* Test Item Value Reference Range Interpretation Comments Urine Blood (test code = 90100-9) 1+ NEGATIVE H [facility] Blood Ktcie2607-41-42 00:19:00* Test Item Value Reference Range Interpretation Comments White Blood Count (test code = 6690-2) 6.20 4.8-10.8 [facility]Red Blood Kpxej5841-46-81 00:19:00* Test Item Value Reference Range Interpretation Comments Red Blood Count (test code = 789-8) 4.11 3.6-5.1 [facility]Hemoglobin2018-03-22 00:19:00* Test Item Value Reference Range Interpretation Comments Hemoglobin (test code = 18833-4) 10.7 12.0-16.0 L [facility]Hematocrit2018-03-22 00:19:00* Test Item Value Reference Range Interpretation Comments Hematocrit (test code = 4544-3) 35.7 34.2-44.1 [facility]Mean Corpuscular Bnqlma3197-67-45 00:19:00* Test Item Value Reference Range Interpretation Comments Mean Corpuscular Volume (test code = 787-2) 86.9 81-99 [facility] Corpuscular Zwncujrmfs8308-45-77 00:19:00* Test Item Value Reference Range Interpretation Comments Mean Corpuscular Hemoglobin (test code = 785-6) 26.0 28-32 L [facility]Mean Corpuscular Hemoglobin Concent 2017-10-12 00:19:00* Test Item Value Reference Range Interpretation Comments Mean Corpuscular Hemoglobin Concent (test code = 786-4) 30.0 31-35 L [facility]Red Cell Distribution Yrrcb9386-94-72 00:19:00* Test Item Value Reference Range Interpretation Comments Red Cell Distribution Width (test code = 55817-3) 15.1 11.7 -14.4 H [facility]Platelet Yeoyq3294-26-70 00:19:00* Test Item Value Reference Range Interpretation Comments Platelet Count (test code = 777-3) 186 140-360 [facility]Neutrophils (%) (Auto)2017-10-12 00:19:00 * Test Item Value Reference Range Interpretation Comments Neutrophils (%) (Auto) (test code = 09684-7) 65.3 38.7-80.0 [facility]Lymphocytes (%) (Auto)2017-10-12 00:19:00 * Test Item Value Reference Range Interpretation Comments Lymphocytes (%) (Auto) (test code = 736-9) 24.5 18.0-39.1 [facility]Monocytes (%) (Auto)2017-10-12 00:19:00* Test Item Value Reference Range Interpretation Comments Monocytes (%) (Auto) (test code = 5905-5) 5.5 4.4-11.3 [facility]Eosinophils (%) (Auto)2017-10-12 00:19:00 * Test Item Value Reference Range Interpretation Comments Eosinophils (%) (Auto) (test code = 713-8) 2.7 0.0-6.0 [facility]Basophils (%) (Auto)2017-10-12 00:19:00* Test Item Value Reference Range Interpretation Comments Basophils (%) (Auto) (test code = 706-2) 1.0 0.0-1.0 [facility]IM GRANULOCYTES %2017-10-12 00:19:00* Test Item Value Reference Range Interpretation Comments IM GRANULOCYTES % (test code = IM GRANULOCYTES %) 1.0 0.0- 1.0 [facility]Neutrophils # (Auto)2017-10-12 00:19:00* Test Item Value Reference Range Interpretation Comments Neutrophils # (Auto) (test code = 751-8) 4.1 2.1-6.9 [facility]Lymphocytes # (Auto)2017-10-12 00:19:00* Test Item Value Reference Range Interpretation Comments Lymphocytes # (Auto) (test code = 21035-7) 1.5 1.0-3.2 [facility]Monocytes # (Auto)2017-10-12 00:19:00* Test Item Value Reference Range Interpretation Comments Monocytes # (Auto) (test code = 742-7) 0.3 0.2-0.8 [facility]Eosinophils # (Auto)2017-10-12 00:19:00* Test Item Value Reference Range Interpretation Comments Eosinophils # (Auto) (test code = 711-2) 0.2 0.0-0.4 [facility]Basophils # (Auto)2017-10-12 00:19:00* Test Item Value Reference Range Interpretation Comments Basophils # (Auto) (test code = 704-7) 0.1 0.0-0.1 [facility]Absolute Immature Granulocyte (auto 2017-10-12 00:19:00* Test Item Value Reference Range Interpretation Comments Absolute Immature Granulocyte (auto (joseph t code = Absolute Immature Granulocyte (auto) 0.06 0-0.1 [facility]rine Ozbbk1334-95-41 00:19:00* Test Item Value Reference Range Interpretation Comments Urine Color (test code = 5778-6) YELLOW YELLOW [facility]Urine Iigakax7444-14-87 00:19:00* Test Item Value Reference Range Interpretation Comments Urine Clarity (test code = 41111-2) CLEAR CLEAR [facility]Urine Specific Nvxnvrk6856-66-64 00:19:00 * Test Item Value Reference Range Interpretation Comments Urine Specific [place] (test code = 5811-5) 1.020 1.010-1.02 5 [facility] dY3833-80-10 00:19:00* Test Item Value Reference Range Interpretation Comments Urine pH (test code = 19640-5) 5 5-7 [facility] Leukocyte Aslpknre2536-54-65 00:19:00* Test Item Value Reference Range Interpretation Comments Urine Leukocyte Esterase (test code = 5799-2) NEGATIVE NEGATIVE [facility] Rylajis1845-53-92 00:19:00* Test Item Value Reference Range Interpretation Comments Urine Nitrite (test code = 03775-5) NEGATIVE NEGATIVE [facility] Cttgsow4333-56-00 00:19:00* Test Item Value Reference Range Interpretation Comments Urine Protein (test code = 5804-0) NEGATIVE NEGATIVE [facility] Glucose (UA)2017-10-12 00:19:00* Test Item Value Reference Range Interpretation Comments Urine Glucose (UA) (test code = 2349-9) 3+ NEGATIVE H [facility] Kjfgwrs7026-14-64 00:19:00* Test Item Value Reference Range Interpretation Comments Urine Ketones (test code = 69895-2) NEGATIVE NEGATIVE [facility] Nhecdvebyrmq8959-36-17 00:19:00* Test Item Value Reference Range Interpretation Comments Urine Urobilinogen (test code = 25133-8) 0.2 0.2-1 [facility] Dtozavjsl4113-81-77 00:19:00* Test Item Value Reference Range Interpretation Comments Urine Bilirubin (test code = 1978-6) NEGATIVE NEGATIVE [facility] Cdmgn0725-44-18 00:19:00* Test Item Value Reference Range Interpretation Comments Urine Blood (test code = 06564-5) 1+ [facility] Pysembn7092-97-05 11:00:00* Test Item Value Reference Range Interpretation Comments Blood Culture (test code = 46085503) NO GROWTH AFTER 5 DAYS, FINAL REPORT [facility] Xmbjfqq4920-53-75 11:00:00* Test Item Value Reference Range Interpretation Comments Blood Culture (test code = 64275596) NO GROWTH AFTER 5 DAYS, FINAL REPORT [facility] Tsrvinc6447-20-76 12:28:00* Test Item Value Reference Range Interpretation Comments Bedside Glucose (test code = 57166-6) 113 70-120 Meter ID: [id number] [facility] Glucose 2017-09-29 12:28:00* Test Item Value Reference Range Interpretation Comments Bedside Glucose (test code = 23741-8) 113 70-120 Meter ID: [id number] [facility] Glucose 2017-09-29 12:28:00* Test Item Value Reference Range Interpretation Comments Bedside Glucose (test code = 56787-5) 113 70-120 Meter ID: [id number] [facility] Glucose 2017-09-29 12:28:00* Test Item Value Reference Range Interpretation Comments Bedside Glucose (test code = 00724-8) 113 70-120 Meter ID: [id number] Glucose 2017-09-29 12:28:00* Test Item Value Reference Range Interpretation Comments Bedside Glucose (test code = 67058-1) 113 70-120 Meter ID: [id number]odium Level 2017-09-29 08:38:00* Test Item Value Reference Range Interpretation Comments Sodium Level (test code = 2951-2) 138 136-145 [facility]assium Hmoye7033-96-74 08:38:00* Test Item Value Reference Range Interpretation Comments Potassium Level (test code = 2823-3) 3.7 3.5-5.1 [facility]Chloride Uzoic3397-41-24 08:38:00* Test Item Value Reference Range Interpretation Comments Chloride Level (test code = 2075-0) 94 98-107 L [facility]Carbon Dioxide Ocsew0577-69-56 08:38:00* Test Item Value Reference Range Interpretation Comments Carbon Dioxide Level (test code = 2028-9) 29 22-29 [facility]Anion Cio7842-47-12 08:38:00* Test Item Value Reference Range Interpretation Comments Anion Gap (test code = 91291-6) 18.7 8-16 H [facility]Blood Urea Zsumtxll1328-67-11 08:38:00* Test Item Value Reference Range Interpretation Comments Blood Urea Nitrogen (test code = 3094-0) 25 7-26 [facility]Creatinine2018 08:38:00* Test Item Value Reference Range Interpretation Comments Creatinine (test code = 2160-0) 1.00 0.57-1.11 [facility]BUN/Creatinine Noyeo8493-92-24 08:38:00* Test Item Value Reference Range Interpretation Comments BUN/Creatinine Ratio (test code = 3097-3) 25 6-25 [facility]Estimat Glomerular Filtration Rate 2017-09-29 08:38:00* Test Item Value Reference Range Interpretation Comments Estimat Glomerular Filtration Rate (test code = 94566-4) 56 >60 L Ranges were taken from the National Kidney Disease Education Program and the [facility] literature.Reference ranges:60 or greater: Repiqr10-15 ( for 3 consecutive months): Chronic kidney disease 15 or less: Kidney failureAdventHealthGlucose Jkpcn7856-26-31 08:38:00* Test Item Value Reference Range Interpretation Comments Glucose Level (test code = SMK9096) 290 74-118 H [facility]Calcium Jiqsf6237-57-82 08:38:00* Test Item Value Reference Range Interpretation Comments Calcium Level (test code = 84493-4) 9.4 8.4-10.2 [facility] Fqjnz8890-23-41 08:38:00* Test Item Value Reference Range Interpretation Comments Sodium Level (test code = 2951-2) 138 136-145 [facility]Potassium Zgivm4351-20-92 08:38:00* Test Item Value Reference Range Interpretation Comments Potassium Level (test code = 2823-3) 3.7 3.5-5.1 [facility]Chloride Wfnqv9581-34-54 08:38:00* Test Item Value Reference Range Interpretation Comments Chloride Level (test code = 2075-0) 94 98-107 L [facility]HealthCarbon Dioxide Hgxgv5597-45-16 08:38:00* Test Item Value Reference Range Interpretation Comments Carbon Dioxide Level (test code = 2028-9) 29 22-29 [facility]Anion Ghk7903-98-76 08:38:00* Test Item Value Reference Range Interpretation Comments Anion Gap (test code = 43291-7) 18.7 8-16 H [facility]Blood Urea Ackaowpy3149-23-85 08:38:00* Test Item Value Reference Range Interpretation Comments Blood Urea Nitrogen (test code = 3094-0) 25 7-26 [facility]Creatinine2018 08:38:00* Test Item Value Reference Range Interpretation Comments Creatinine (test code = 2160-0) 1.00 0.57-1.11 [facility]BUN/Creatinine Vaycr3810-52-82 08:38:00* Test Item Value Reference Range Interpretation Comments BUN/Creatinine Ratio (test code = 3097-3) 25 6-25 [facility]Estimat Glomerular Filtration Rate 2017-09-29 08:38:00* Test Item Value Reference Range Interpretation Comments Estimat Glomerular Filtration Rate (test code = 28428-1) 56 >60 L Ranges were taken from the National Kidney Disease Education Program and the [facility] Kidney Foundation literature.Reference ranges:60 or greater: Lyydps47-60 ( for 3 consecutive months): Chronic kidney disease 15 or less: Kidney failureAdventHealthGlucose Cfnoa7071-74-03 08:38:00* Test Item Value Reference Range Interpretation Comments Glucose Level (test code = CEV8689) 290 74-118 H [facility]Calcium Variq6078-80-66 08:38:00* Test Item Value Reference Range Interpretation Comments Calcium Level (test code = 23425-5) 9.4 8.4-10.2 [facility]Arterial Blood cG7203-71-37 13:49:00* Test Item Value Reference Range Interpretation Comments Arterial Blood pH (test code = 2744-1) 7.46 7.31-7.41 H WAS CALLED TO RUN A BLOOD GAS FOR A PT ON ROOM AIR LAYING ON THE MARINE PIPEFITTER HELPER TABLE [facility]Arterial Blood Partial Pressure CO2 2017-09-28 13:49:00* Test Item Value Reference Range Interpretation Comments Arterial Blood Partial Pressure CO2 (test code = 2019-02) 46 41-51 [facility]Ar[facility] Blood Partial Pressure O2 2017-09-28 13:49:00* Test Item Value Reference Range Interpretation Comments Arterial Blood Partial Pressure O2 (test code = 2019-02) 30 80-105 LL Results called/hand delivered to DR CLINTON LLAMAS at 1328 on 09/28/17 by Mckayla reyna. RB [place].[facility]HealthArterial Blood HCO3 2017-09-28 13:49:00* Test Item Value Reference Range Interpretation Comments Arterial Blood HCO3 (test code = 1960-4) 33 23-28 H [facility]HealthArterial Blood Base Vreyod2429-04-48 13:49:00* Test Item Value Reference Range Interpretation Comments Arterial Blood Base Excess (test code = 1925-7) 9.0 -2-3 H [facility]Ar[facility] Blood Oxygen Saturation 2017-09-28 13:49:00* Test Item Value Reference Range Interpretation Comments Arterial Blood Oxygen Saturation (test code = 2708-6) 60.0 95-98 L [facility] Blood pM1111-32-03 13:49:00* Test Item Value Reference Range Interpretation Comments Arterial Blood pH (test code = 2744-1) 7.46 7.31-7.41 H WAS CALLED TO RUN A BLOOD GAS FOR A PT ON ROOM AIR LAYING ON THE MARINE PIPEFITTER HELPER TABLE [facility]Ar[facility]ial Blood Partial Pressure CO2 2017-09-28 13:49:00* Test Item Value Reference Range Interpretation Comments Arterial Blood Partial Pressure CO2 (test code = 2018-8) 46 41-51 [facility]Ar[facility] Blood Partial Pressure O2 2017-09-28 13:49:00* Test Item Value Reference Range Interpretation Comments Arterial Blood Partial Pressure O2 (test code = 2018-8) 30 80-105 LL Results called/hand delivered to DR CLINTON LLAMAS at 1328 on 09/28/17 by Mckayla reyna. RB [place].[facility]HealthArterial Blood HCO3 2017-09-28 13:49:00* Test Item Value Reference Range Interpretation Comments Arterial Blood HCO3 (test code = 1960-4) 33 23-28 H [facility]Arterial Blood Base Biwjmi6900-27-77 13:49:00* Test Item Value Reference Range Interpretation Comments Arterial Blood Base Excess (test code = 1925-7) 9.0 -2-3 H [facility]Ar[facility] Blood Oxygen Saturation 2017-09-28 13:49:00* Test Item Value Reference Range Interpretation Comments Arterial Blood Oxygen Saturation (test code = 2708-6) 60.0 95-98 L [facility] Blood gL2735-26-63 13:49:00* Test Item Value Reference Range Interpretation Comments Arterial Blood pH (test code = 2744-1) 7.46 7.31-7.41 H WAS CALLED TO RUN A BLOOD GAS FOR A PT ON ROOM AIR LAYING ON THE MARINE PIPEFITTER HELPER TABLE [facility]Ar[facility] Blood Partial Pressure CO2 2017-09-28 13:49:00* Test Item Value Reference Range Interpretation Comments Arterial Blood Partial Pressure CO2 (test code = 2019-02) 46 41-51 [facility] Blood Partial Pressure O2 2017-09-28 13:49:00* Test Item Value Reference Range Interpretation Comments Arterial Blood Partial Pressure O2 (test code = 2019-02) 30 80-105 LL Results called/hand delivered to DR CLINTON LLAMAS at 1328 on 09/28/17 by Mckayla reyna. RB [place].[facility]HealthArterial Blood HCO3 2017-09-28 13:49:00* Test Item Value Reference Range Interpretation Comments Arterial Blood HCO3 (test code = 1960-4) 33 23-28 H [facility]Ar[facility] Blood Base Vntlmm5846-31-52 13:49:00* Test Item Value Reference Range Interpretation Comments Arterial Blood Base Excess (test code = 1925-7) 9.0 -2-3 H [facility]Ar[facility] Blood Oxygen Saturation 2017-09-28 13:49:00* Test Item Value Reference Range Interpretation Comments Arterial Blood Oxygen Saturation (test code = 2708-6) 60.0 95-98 L [facility] Blood [id number] 13:49:00* Test Item Value Reference Range Interpretation Comments Arterial Blood pH (test code = 2744-1) 7.46 7.31-7.41 H WAS CALLED TO RUN A BLOOD GAS FOR A PT ON ROOM AIR LAYING ON THE MARINE PIPEFITTER HELPER TABLE [facility]Ar[facility] Blood Partial Pressure CO2 2017-09-28 13:49:00* Test Item Value Reference Range Interpretation Comments Arterial Blood Partial Pressure CO2 (test code = 2019-02) 46 41-51 [facility]Ar[facility] Blood Partial Pressure O2 2017-09-28 13:49:00* Test Item Value Reference Range Interpretation Comments Arterial Blood Partial Pressure O2 (test code = 2019-8) 30 80-105 LL Results called/hand delivered to DR CLINTON LLAMAS at 1328 on 09/28/17 by Mckayla reyna. RB [place].[facility]HealthArterial Blood HCO3 2017-09-28 13:49:00* Test Item Value Reference Range Interpretation Comments Arterial Blood HCO3 (test code = 1960-4) 33 23-28 H [facility]Arter[facility] Blood Base Vuyfpy3306-54-15 13:49:00* Test Item Value Reference Range Interpretation Comments Arterial Blood Base Excess (test code = 1925-7) 9.0 -2-3 H [facility]Ar[facility] Blood Oxygen Saturation 2017-09-28 13:49:00* Test Item Value Reference Range Interpretation Comments Arterial Blood Oxygen Saturation (test code = 2708-6) 60.0 95-98 L [facility] Blood [id number] 13:49:00* Test Item Value Reference Range Interpretation Comments Arterial Blood pH (test code = 2744-1) 7.46 7.31-7.41 H WAS CALLED TO RUN A BLOOD GAS FOR A PT ON ROOM AIR LAYING ON THE MARINE PIPEFITTER HELPER TABLE [facility]Ar[facility] Blood Partial Pressure CO2 2017-09-28 13:49:00* Test Item Value Reference Range Interpretation Comments Arterial Blood Partial Pressure CO2 (test code = 2019-8) 46 41-51 [facility]Ar[facility] Blood Partial Pressure O2 2017-09-28 13:49:00* Test Item Value Reference Range Interpretation Comments Arterial Blood Partial Pressure O2 (test code = 2019-8) 30 80-105 LL Results called/hand delivered to DR CLINTON LLAMAS at 1328 on 09/28/17 by Mckayla reyna. RB [place].[facility]Arterial Blood HCO3 2017-09-28 13:49:00* Test Item Value Reference Range Interpretation Comments Arterial Blood HCO3 (test code = 1960-4) 33 23-28 H [facility]Ar[facility] Blood Base Ggdcqw6902-76-87 13:49:00* Test Item Value Reference Range Interpretation Comments Arterial Blood Base Excess (test code = 1925-7) 9.0 -2-3 H [facility]Ar[facility] Blood Oxygen Saturation 2017-09-28 13:49:00* Test Item Value Reference Range Interpretation Comments Arterial Blood Oxygen Saturation (test code = 2708-6) 60.0 95-98 L [facility] Blood nO0682-04-69 13:49:00* Test Item Value Reference Range Interpretation Comments Arterial Blood pH (test code = 2744-1) 7.46 7.31-7.41 H WAS CALLED TO RUN A BLOOD GAS FOR A PT ON ROOM AIR LAYING ON THE MARINE PIPEFITTER HELPER TABLE [facility]Ar[facility] Blood Partial Pressure CO2 2017-09-28 13:49:00* Test Item Value Reference Range Interpretation Comments Arterial Blood Partial Pressure CO2 (test code = 2019-02) 46 41-51 [facility] 2017-09-28 13:49:00* Test Item Value Reference Range Interpretation Comments Arterial Blood Partial Pressure O2 (test code = 2019-02) 30 80-105 LL Results called/hand delivered to DR CLINTON LLAMAS at 1328 on 09/28/17 by Mckayla reyna. RB [place].[facility]Ar[facility] Blood HCO3 2017-09-28 13:49:00* Test Item Value Reference Range Interpretation Comments Arterial Blood HCO3 (test code = 1960-4) 33 23-28 H [facility]Ar[facility] Blood Base Gvrauk9529-21-79 13:49:00* Test Item Value Reference Range Interpretation Comments Arterial Blood Base Excess (test code = 1925-7) 9.0 -2-3 H [facility] Blood Oxygen Saturation 2017-09-28 13:49:00* Test Item Value Reference Range Interpretation Comments Arterial Blood Oxygen Saturation (test code = 2708-6) 60.0 95-98 L [facility] Blood [id number] 13:49:00* Test Item Value Reference Range Interpretation Comments Arterial Blood pH (test code = 2744-1) 7.46 7.31-7.41 H WAS CALLED TO RUN A BLOOD GAS FOR A PT ON ROOM AIR LAYING ON THE MARINE PIPEFITTER HELPER TABLE [facility] Blood Partial Pressure CO2 2017-09-28 13:49:00* Test Item Value Reference Range Interpretation Comments Arterial Blood Partial Pressure CO2 (test code = 2018-8) 46 41-51 [facility] Blood Partial Pressure O2 2017-09-28 13:49:00* Test Item Value Reference Range Interpretation Comments Arterial Blood Partial Pressure O2 (test code = 2018-) 30 80-105 LL Results called/hand delivered to DR CLINTON LLAMAS at 1328 on 09/28/17 by Mckayla reyna. RB [place].[facility]HealthAr[facility]ial Blood HCO3 2017-09-28 13:49:00* Test Item Value Reference Range Interpretation Comments Arterial Blood HCO3 (test code = 1960-4) 33 23-28 [facility] Bxtjsd7195-35-51 13:49:00* Test Item Value Reference Range Interpretation Comments Arterial Blood Base Excess (test code = 1925-7) 9.0 -2-3 H [facility] Blood Oxygen Saturation 2017-09-28 13:49:00* Test Item Value Reference Range Interpretation Comments Arterial Blood Oxygen Saturation (test code = 2708-6) 60.0 95-98 L [facility] Blood [id number] 13:49:00* Test Item Value Reference Range Interpretation Comments Arterial Blood pH (test code = 2744-1) 7.46 7.31-7.41 H WAS CALLED TO RUN A BLOOD GAS FOR A PT ON ROOM AIR LAYING ON THE MARINE PIPEFITTER HELPER TABLE [facility] Blood Partial Pressure CO2 2017-09-28 13:49:00* Test Item Value Reference Range Interpretation Comments Arterial Blood Partial Pressure CO2 (test code = 2018-8) 46 41-51 [facility] Blood Partial Pressure O2 2017-09-28 13:49:00* Test Item Value Reference Range Interpretation Comments Arterial Blood Partial Pressure O2 (test code = 2018-8) 30 80-105 LL Results called/hand delivered to DR CLINTON LLAMAS at 1328 on 09/28/17 by Mckayla reyna. RB [place].[facility]Ar[facility]ial Blood HCO3 2017-09-28 13:49:00* Test Item Value Reference Range Interpretation Comments Arterial Blood HCO3 (test code = 1960-4) 33 23-28 H [facility]Ar[facility] Blood Base Tolrjs4461-74-32 13:49:00* Test Item Value Reference Range Interpretation Comments Arterial Blood Base Excess (test code = 1925-7) 9.0 -2-3 H [facility] Blood Oxygen Saturation 2017-09-28 13:49:00* Test Item Value Reference Range Interpretation Comments Arterial Blood Oxygen Saturation (test code = 2708-6) 60.0 95-98 L [facility]Ar[facility] Blood [id number] 13:49:00* Test Item Value Reference Range Interpretation Comments Arterial Blood pH (test code = 2744-1) 7.46 7.31-7.41 H WAS CALLED TO RUN A BLOOD GAS FOR A PT ON ROOM AIR LAYING ON THE MARINE PIPEFITTER HELPER TABLE [facility] Blood Partial Pressure CO2 2017-09-28 13:49:00* Test Item Value Reference Range Interpretation Comments Arterial Blood Partial Pressure CO2 (test code = 2018-8) 46 41-51 [facility] Blood Partial Pressure O2 2017-09-28 13:49:00* Test Item Value Reference Range Interpretation Comments Arterial Blood Partial Pressure O2 (test code = 2018-8) 30 80-105 LL Results called/hand delivered to DR CLINTON LLAMAS at 1328 on 09/28/17 by Mckayla reyna. RB [place].[facility]Ar[facility]ial Blood HCO3 2017-09-28 13:49:00* Test Item Value Reference Range Interpretation Comments Arterial Blood HCO3 (test code = 1960-4) 33 23-28 H [facility]Ar[facility] Blood Base Xeebyg2585-96-28 13:49:00* Test Item Value Reference Range Interpretation Comments Arterial Blood Base Excess (test code = 1925-7) 9.0 -2-3 H [facility] Blood Oxygen Saturation 2017-09-28 13:49:00* Test Item Value Reference Range Interpretation Comments Arterial Blood Oxygen Saturation (test code = 2708-6) 60.0 95-98 L [facility] Blood [id number] 13:49:00* Test Item Value Reference Range Interpretation Comments Arterial Blood pH (test code = 2744-1) 7.46 7.31-7.41 H WAS CALLED TO RUN A BLOOD GAS FOR A PT ON ROOM AIR LAYING ON THE MARINE PIPEFITTER HELPER TABLE [facility] Blood Partial Pressure CO2 2017-09-28 13:49:00* Test Item Value Reference Range Interpretation Comments Arterial Blood Partial Pressure CO2 (test code = 2019-02) 46 41-51 [facility] Blood Partial Pressure O2 2017-09-28 13:49:00* Test Item Value Reference Range Interpretation Comments Arterial Blood Partial Pressure O2 (test code = 2019-02) 30 80-105 LL Results called/hand delivered to DR CLINTON LLAMAS at 1328 on 09/28/17 by Mckayla reyna. RB [place].[facility]Ar[facility]ial Blood HCO3 2017-09-28 13:49:00* Test Item Value Reference Range Interpretation Comments Arterial Blood HCO3 (test code = 1960-4) 33 23-28 H [facility] Blood Base Mvjmwy4346-53-21 13:49:00* Test Item Value Reference Range Interpretation Comments Arterial Blood Base Excess (test code = 1925-7) 9.0 -2-3 H [facility] Blood Oxygen Saturation 2017-09-28 13:49:00* Test Item Value Reference Range Interpretation Comments Arterial Blood Oxygen Saturation (test code = 2708-6) 60.0 95-98 L [facility] Blood gL9210-90-73 13:49:00* Test Item Value Reference Range Interpretation Comments Arterial Blood pH (test code = 2744-1) 7.46 7.31-7.41 H WAS CALLED TO RUN A BLOOD GAS FOR A PT ON ROOM AIR LAYING ON THE MARINE PIPEFITTER HELPER TABLE [facility] Partial Pressure CO2 2017-09-28 13:49:00* Test Item Value Reference Range Interpretation Comments Arterial Blood Partial Pressure CO2 (test code = 2019-02) 46 41-51 [facility] Partial Pressure O2 2017-09-28 13:49:00* Test Item Value Reference Range Interpretation Comments Arterial Blood Partial Pressure O2 (test code = 2019-02) 30 80-105 LL Results called/hand delivered to DR CLINTON LLAMAS at 1328 on 09/28/17 by Mckayla reyna. RB [place].[facility]Ar[facility] Blood HCO3 2017-09-28 13:49:00* Test Item Value Reference Range Interpretation Comments Arterial Blood HCO3 (test code = 1960-4) 33 23-28 H [facility] Blood Base Rbhryy4844-20-99 13:49:00* Test Item Value Reference Range Interpretation Comments Arterial Blood Base Excess (test code = 1925-7) 9.0 -2-3 H [facility]Ar[facility] Blood Oxygen Saturation 2017-09-28 13:49:00* Test Item Value Reference Range Interpretation Comments Arterial Blood Oxygen Saturation (test code = 2708-6) 60.0 95-98 L [facility]Blood Ckrdzwx3425-51-11 11:00:00* Test Item Value Reference Range Interpretation Comments Blood Culture (test code = 64254792) NO GROWTH AFTER 72 HOURS [facility]Creatine Kinase KG2016-44-99 07:21:00* Test Item Value Reference Range Interpretation Comments Creatine Kinase MB (test code = 80132-1) 1.40 0-5.0 [facility]Troponin [id number] 07:21:00* Test Item Value Reference Range Interpretation Comments Troponin I (test code = UUG6535) -0.001 0-0.300 [facility]Creatine Kinase [id number] 07:21:00* Test Item Value Reference Range Interpretation Comments Creatine Kinase MB (test code = 82726-8) 1.40 0-5.0 [facility]Troponin T1202-88-48 07:21:00* Test Item Value Reference Range Interpretation Comments Troponin I (test code = BHS3063) -0.001 0-0.300 [facility]Creatine Yvotzc0574-92-05 07:19:00* Test Item Value Reference Range Interpretation Comments Creatine Kinase (test code = 2157-6) 67 29-168 [facility]Creatine Geawkw3861-94-73 07:19:00* Test Item Value Reference Range Interpretation Comments Creatine Kinase (test code = 2157-6) 67 29-168 [facility]HealthWhite Blood Jdidn7906-54-21 07:00:00* Test Item Value Reference Range Interpretation Comments White Blood Count (test code = 6690-2) 8.36 4.8-10.8 [facility]Red Blood Soyvx4459-37-74 07:00:00* Test Item Value Reference Range Interpretation Comments Red Blood Count (test code = 789-8) 4.13 3.6-5.1 [facility]Hemoglobin2018-03-06 07:00:00* Test Item Value Reference Range Interpretation Comments Hemoglobin (test code = 16300-3) 10.9 12.0-16.0 L [facility]Hematocrit2018-03-06 07:00:00* Test Item Value Reference Range Interpretation Comments Hematocrit (test code = 4544-3) 35.0 34.2-44.1 [facility]HealthMean Corpuscular Opldsc2457-21-44 07:00:00* Test Item Value Reference Range Interpretation Comments Mean Corpuscular Volume (test code = 787-2) 84.7 81-99 [facility]Mean Corpuscular Ukdnlclivr6389-60-48 07:00:00* Test Item Value Reference Range Interpretation Comments Mean Corpuscular Hemoglobin (test code = 785-6) 26.4 28-32 L [facility]HealthMean Corpuscular Hemoglobin Concent 2017-09-26 07:00:00* Test Item Value Reference Range Interpretation Comments Mean Corpuscular Hemoglobin Concent (test code = 786-4) 31.1 31-35 [facility]HealthRed Cell Distribution Oulqv4363-24-31 07:00:00* Test Item Value Reference Range Interpretation Comments Red Cell Distribution Width (test code = 04201-6) 15.1 11.7 -14.4 H [facility]Platelet Qhybc9952-48-78 07:00:00* Test Item Value Reference Range Interpretation Comments Platelet Count (test code = 777-3) 223 140-360 [facility]Neutrophils (%) (Auto)2017-09-26 07:00:00 * Test Item Value Reference Range Interpretation Comments Neutrophils (%) (Auto) (test code = 90240-3) 80.9 38.7-80.0 H [facility]Lymphocytes (%) (Auto)2017-09-26 07:00:00 * Test Item Value Reference Range Interpretation Comments Lymphocytes (%) (Auto) (test code = 736-9) 12.3 18.0-39.1 L [facility]Monocytes (%) (Auto)2017-09-26 07:00:00* Test Item Value Reference Range Interpretation Comments Monocytes (%) (Auto) (test code = 5905-5) 5.1 4.4-11.3 [facility]Eosinophils (%) (Auto)2017-09-26 07:00:00 * Test Item Value Reference Range Interpretation Comments Eosinophils (%) (Auto) (test code = 713-8) 0.0 0.0-6.0 [facility]Basophils (%) (Auto)2017-09-26 07:00:00* Test Item Value Reference Range Interpretation Comments Basophils (%) (Auto) (test code = 706-2) 0.4 0.0-1.0 [facility] %2017[facility]26 07:00:00* Test Item Value Reference Range Interpretation Comments IM GRANULOCYTES % (test code = IM GRANULOCYTES %) 1.3 0.0- 1.0 H [facility]Neutrophils # (Auto)2017-09-26 07:00:00* Test Item Value Reference Range Interpretation Comments Neutrophils # (Auto) (test code = 751-8) 6.8 2.1-6.9 [facility]Lymphocytes # (Auto)2017-09-26 07:00:00* Test Item Value Reference Range Interpretation Comments Lymphocytes # (Auto) (test code = 69306-4) 1.0 1.0-3.2 [facility]Monocytes # (Auto)2017-09-26 07:00:00* Test Item Value Reference Range Interpretation Comments Monocytes # (Auto) (test code = 742-7) 0.4 0.2-0.8 [facility]Eosinophils # (Auto)2017-09-26 07:00:00* Test Item Value Reference Range Interpretation Comments Eosinophils # (Auto) (test code = 711-2) 0.0 0.0-0.4 [facility]Basophils # (Auto)2017-09-26 07:00:00* Test Item Value Reference Range Interpretation Comments Basophils # (Auto) (test code = 704-7) 0.0 0.0-0.1 [facility]Absolute Immature Granulocyte (auto 2017-09-26 07:00:00* Test Item Value Reference Range Interpretation Comments Absolute Immature Granulocyte (auto (joseph t code = Absolute Immature Granulocyte (auto) 0.11 0-0.1 H [facility]White Blood Ayuaw7334-70-50 07:00:00* Test Item Value Reference Range Interpretation Comments White Blood Count (test code = 6690-2) 8.36 4.8-10.8 [facility]Red Blood Qkbkk6346-00-47 07:00:00* Test Item Value Reference Range Interpretation Comments Red Blood Count (test code = 789-8) 4.13 3.6-5.1 [facility]Hemoglobin2018-03-06 07:00:00* Test Item Value Reference Range Interpretation Comments Hemoglobin (test code = 53567-0) 10.9 12.0-16.0 L [facility]Hematocrit2018-03-06 07:00:00* Test Item Value Reference Range Interpretation Comments Hematocrit (test code = 4544-3) 35.0 34.2-44.1 [facility]Mean Corpuscular Xradrp7641-68-61 07:00:00* Test Item Value Reference Range Interpretation Comments Mean Corpuscular Volume (test code = 787-2) 84.7 81-99 [facility]Mean Corpuscular Xzookmzrau2599-76-62 07:00:00* Test Item Value Reference Range Interpretation Comments Mean Corpuscular Hemoglobin (test code = 785-6) 26.4 28-32 L [facility]Mean Corpuscular Hemoglobin Concent 2017-09-26 07:00:00* Test Item Value Reference Range Interpretation Comments Mean Corpuscular Hemoglobin Concent (test code = 786-4) 31.1 31-35 [facility]Red Cell Distribution Jnzez1543-00-86 07:00:00* Test Item Value Reference Range Interpretation Comments Red Cell Distribution Width (test code = 61928-0) 15.1 11.7 -14.4 H [facility]Platelet Zeqxt6855-81-59 07:00:00* Test Item Value Reference Range Interpretation Comments Platelet Count (test code = 777-3) 223 140-360 [facility]Neutrophils (%) (Auto)2017-09-26 07:00:00 * Test Item Value Reference Range Interpretation Comments Neutrophils (%) (Auto) (test code = 58892-2) 80.9 38.7-80.0 H [facility]Lymphocytes (%) (Auto)2017-09-26 07:00:00 * Test Item Value Reference Range Interpretation Comments Lymphocytes (%) (Auto) (test code = 736-9) 12.3 18.0-39.1 L [facility]Monocytes (%) (Auto)2017-09-26 07:00:00* Test Item Value Reference Range Interpretation Comments Monocytes (%) (Auto) (test code = 5905-5) 5.1 4.4-11.3 [facility]Eosinophils (%) (Auto)2017-09-26 07:00:00 * Test Item Value Reference Range Interpretation Comments Eosinophils (%) (Auto) (test code = 713-8) 0.0 0.0-6.0 [facility]Basophils (%) (Auto)2017-09-26 07:00:00* Test Item Value Reference Range Interpretation Comments Basophils (%) (Auto) (test code = 706-2) 0.4 0.0-1.0 [facility]IM GRANULOCYTES %2017-09-26 07:00:00* Test Item Value Reference Range Interpretation Comments IM GRANULOCYTES % (test code = IM GRANULOCYTES %) 1.3 0.0- 1.0 H [facility]Neutrophils # (Auto)2017-09-26 07:00:00* Test Item Value Reference Range Interpretation Comments Neutrophils # (Auto) (test code = 751-8) 6.8 2.1-6.9 [facility]Lymphocytes # (Auto)2017-09-26 07:00:00* Test Item Value Reference Range Interpretation Comments Lymphocytes # (Auto) (test code = 08537-2) 1.0 1.0-3.2 [facility]Monocytes # (Auto)2017-09-26 07:00:00* Test Item Value Reference Range Interpretation Comments Monocytes # (Auto) (test code = 742-7) 0.4 0.2-0.8 [facility]Eosinophils # (Auto)2017-09-26 07:00:00* Test Item Value Reference Range Interpretation Comments Eosinophils # (Auto) (test code = 711-2) 0.0 0.0-0.4 [facility]Basophils # (Auto)2017-09-26 07:00:00* Test Item Value Reference Range Interpretation Comments Basophils # (Auto) (test code = 704-7) 0.0 0.0-0.1 [facility]Absolute Immature Granulocyte (auto 2017-09-26 07:00:00* Test Item Value Reference Range Interpretation Comments Absolute Immature Granulocyte (auto (joseph t code = Absolute Immature Granulocyte (auto) 0.11 0-0.1 H [facility]HealthProthrombin Ygxa0123-72-85 11:58:00* Test Item Value Reference Range Interpretation Comments Prothrombin Time (test code = 5902-2) 13.2 11.9-14.5 [facility]Prothromb Time International Ratio 2017-09-25 11:58:00* Test Item Value Reference Range Interpretation Comments Prothromb Time International Ratio (test code = 6301-6) 1.08 Oral Anticoagulant Therapy INR Values:1. Low Intensity Therapy 1.5 - 2.02 . Moderate Intensity Therapy 2.0 - 3.03. High Intensity Therapy(1) 2.5 - 3. 54. High Intensity Therapy(2) 3.0 - 4.05. Panic Value INR > 5.0 [facility]Activated Partial Thromboplast Time 2017-09-25 11:58:00* Test Item Value Reference Range Interpretation Comments Activated Partial Thromboplast Time (test code = 46283-7) 23.7 23.8-35.5 L [facility]HealthB-Type Natriuretic Apahggb0659-61-21 11:58:00* Test Item Value Reference Range Interpretation Comments B-Type Natriuretic Peptide (test code = 78884-6) 77.1 0-100 [facility]Prothrombin Situ2201-84-30 11:58:00* Test Item Value Reference Range Interpretation Comments Prothrombin Time (test code = 5902-2) 13.2 11.9-14.5 [facility]Prothromb Time International Ratio 2017-09-25 11:58:00* Test Item Value Reference Range Interpretation Comments Prothromb Time International Ratio (test code = 6301-6) 1.08 Oral Anticoagulant Therapy INR Values:1. Low Intensity Therapy 1.5 - 2.02 . Moderate Intensity Therapy 2.0 - 3.03. High Intensity Therapy(1) 2.5 - 3. 54. High Intensity Therapy(2) 3.0 - 4.05. Panic Value INR > 5.0 [facility]Activated Partial Thromboplast Time 2017-09-25 11:58:00* Test Item Value Reference Range Interpretation Comments Activated Partial Thromboplast Time (test code = 03957-3) 23.7 23.8-35.5 L [facility]B-Type Natriuretic Isagbiw3495-88-95 11:58:00* Test Item Value Reference Range Interpretation Comments B-Type Natriuretic Peptide (test code = 28989-4) 77.1 0-100 [facility]Influenza Virus Types A,B Antigen 2017-09-25 11:57:00* Test Item Value Reference Range Interpretation Comments Influenza Virus Types A,B Antigen (test code = 69641-4) NEGATIVE NEGATIVE [facility]Influenza Virus Types A,B Antigen 2017-09-25 11:57:00* Test Item Value Reference Range Interpretation Comments Influenza Virus Types A,B Antigen (test code = 08842-1) NEGATIVE NEGATIVE [facility]Influenza Virus Types A,B Antigen 2017-09-25 11:57:00* Test Item Value Reference Range Interpretation Comments Influenza Virus Types A,B Antigen (test code = 88669-2) NEGATIVE NEGATIVE [facility]Influen Virus Types A,B Antigen 2017-09-25 11:57:00* Test Item Value Reference Range Interpretation Comments Influenza Virus Types A,B Antigen (test code = 65033-2) NEGATIVE NEGATIVE [facility]Influenza Virus Types A,B Antigen 2017-09-25 11:57:00* Test Item Value Reference Range Interpretation Comments Influenza Virus Types A,B Antigen (test code = 55925-3) NEGATIVE NEGATIVE [facility]Influenza Virus Types A,B Antigen 2017-09-25 11:57:00* Test Item Value Reference Range Interpretation Comments Influenza Virus Types A,B Antigen (test code = 08047-0) NEGATIVE NEGATIVE [facility]Influenza Virus Types A,B Antigen 2017-09-25 11:57:00* Test Item Value Reference Range Interpretation Comments Influenza Virus Types A,B Antigen (test code = 53969-2) NEGATIVE NEGATIVE [facility]Influenza Virus Types A,B Antigen 2017-09-25 11:57:00* Test Item Value Reference Range Interpretation Comments Influenza Virus Types A,B Antigen (test code = 96872-1) NEGATIVE NEGATIVE [facility]Influenza Virus Types A,B Antigen 2017-09-25 11:57:00* Test Item Value Reference Range Interpretation Comments Influenza Virus Types A,B Antigen (test code = 21747-6) NEGATIVE NEGATIVE [facility]Influenza Virus Types A,B Antigen 2017-09-25 11:57:00* Test Item Value Reference Range Interpretation Comments Influenza Virus Types A,B Antigen (test code = 94938-6) NEGATIVE NEGATIVE [facility]Influenza Virus Types A,B Antigen 2017-09-25 11:57:00* Test Item Value Reference Range Interpretation Comments Influenza Virus Types A,B Antigen (test code = 96352-7) NEGATIVE NEGATIVE [facility] HZJ4265-23-87 11:55:00* Test Item Value Reference Range Interpretation Comments Urine WBC (test code = 5821-4) NONE 0-5 [facility] HFR9602-33-71 11:55:00* Test Item Value Reference Range Interpretation Comments Urine RBC (test code = 62691-8) NONE 0-5 [facility]Urine Itsapszi1841-90-04 11:55:00* Test Item Value Reference Range Interpretation Comments Urine Bacteria (test code = 87098-0) NONE NONE [facility]Urine Epithelial Djuvf1778-00-60 11:55:00 * Test Item Value Reference Range Interpretation Comments Urine Epithelial Cells (test code = 69845-5) RARE NONE [facility] OZT1506-12-51 11:55:00* Test Item Value Reference Range Interpretation Comments Urine WBC (test code = 5821-4) NONE 0-5 [facility] YLN6586-31-10 11:55:00* Test Item Value Reference Range Interpretation Comments Urine RBC (test code = 94448-8) NONE 0-5 [facility]Urine Qgfnuaqj0732-38-30 11:55:00* Test Item Value Reference Range Interpretation Comments Urine Bacteria (test code = 56510-6) NONE NONE [facility]Urine Epithelial Hxxkx9708-94-71 11:55:00 * Test Item Value Reference Range Interpretation Comments Urine Epithelial Cells (test code = 12939-8) RARE NONE [facility]HealthThyroid Stimulating Hormone (TSH) 2017-09-25 11:50:00* Test Item Value Reference Range Interpretation Comments Thyroid Stimulating Hormone (TSH) (test code = 56311-8) 0.515 0.350-4.940 [facility]Thyroid Stimulating Hormone (TSH) 2017-09-25 11:50:00* Test Item Value Reference Range Interpretation Comments Thyroid Stimulating Hormone (TSH) (test code = 43966-3) 0.515 0.350-4.940 [facility]Thyroid Stimulating Hormone (TSH) 2017-09-25 11:50:00* Test Item Value Reference Range Interpretation Comments Thyroid Stimulating Hormone (TSH) (test code = 62200-7) 0.515 0.350-4.940 [facility]Thyroid Stimulating Hormone (TSH) 2017-09-25 11:50:00* Test Item Value Reference Range Interpretation Comments Thyroid Stimulating Hormone (TSH) (test code = 31297-0) 0.515 0.350-4.940 [facility]Thyroid Stimulating Hormone (TSH) 2017-09-25 11:50:00* Test Item Value Reference Range Interpretation Comments Thyroid Stimulating Hormone (TSH) (test code = 28650-7) 0.515 0.350-4.940 [facility]Urine Jfphl0803-15-49 11:45:00* Test Item Value Reference Range Interpretation Comments Urine Color (test code = 5778-6) COLORLESS YELLOW [facility]Urine Dqkiklm8452-74-35 11:45:00* Test Item Value Reference Range Interpretation Comments Urine Clarity (test code = 71445-8) CLEAR CLEAR [facility]Urine Specific Qvwnxtg4704-77-38 11:45:00 * Test Item Value Reference Range Interpretation Comments Urine Specific [place] (test code = 5811-5) 1.010 1.010-1.02 5 [facility]Urine kT5710-39-97 11:45:00* Test Item Value Reference Range Interpretation Comments Urine pH (test code = 72963-7) 6 5-7 [facility]Urine Leukocyte Iephvosr6733-62-52 11:45:00* Test Item Value Reference Range Interpretation Comments Urine Leukocyte Esterase (test code = 5799-2) NEGATIVE NEGATIVE [facility]Urine Prdfpcg4842-61-84 11:45:00* Test Item Value Reference Range Interpretation Comments Urine Nitrite (test code = 84587-1) NEGATIVE NEGATIVE [facility]Urine Mwcstgt4505-15-02 11:45:00* Test Item Value Reference Range Interpretation Comments Urine Protein (test code = 5804-0) NEGATIVE NEGATIVE [facility]Urine Glucose (UA)2017-09-25 11:45:00* Test Item Value Reference Range Interpretation Comments Urine Glucose (UA) (test code = 2349-9) NEGATIVE NEGATIVE [facility]Urine Ipnxzsz7343-90-80 11:45:00* Test Item Value Reference Range Interpretation Comments Urine Ketones (test code = 78477-9) NEGATIVE NEGATIVE [facility] Iteyttvfgcir0127-29-70 11:45:00* Test Item Value Reference Range Interpretation Comments Urine Urobilinogen (test code = 52173-4) 0.2 0.2-1 [facility] Czloakqeh7952-48-03 11:45:00* Test Item Value Reference Range Interpretation Comments Urine Bilirubin (test code = 1978-6) NEGATIVE NEGATIVE [facility] Dtxmq5195-01-04 11:45:00* Test Item Value Reference Range Interpretation Comments Urine Blood (test code = 32033-9) NEGATIVE NEGATIVE [facility] Tymkt6130-04-26 11:45:00* Test Item Value Reference Range Interpretation Comments Urine Color (test code = 5778-6) COLORLESS YELLOW [facility]Urine Fshwqmw2676-07-52 11:45:00* Test Item Value Reference Range Interpretation Comments Urine Clarity (test code = 52208-2) CLEAR CLEAR [facility]Urine Specific Jwxdpjf9464-87-00 11:45:00 * Test Item Value Reference Range Interpretation Comments Urine Specific [place] (test code = 5811-5) 1.010 1.010-1.02 5 [facility]Urine kT2831-97-33 11:45:00* Test Item Value Reference Range Interpretation Comments Urine pH (test code = 06845-9) 6 5-7 [facility]Urine Leukocyte Yatjntdh4087-69-71 11:45:00* Test Item Value Reference Range Interpretation Comments Urine Leukocyte Esterase (test code = 5799-2) NEGATIVE NEGATIVE [facility]Urine Whdxfdh2456-21-51 11:45:00* Test Item Value Reference Range Interpretation Comments Urine Nitrite (test code = 95176-1) NEGATIVE NEGATIVE [facility]Urine Groijac1441-61-16 11:45:00* Test Item Value Reference Range Interpretation Comments Urine Protein (test code = 5804-0) NEGATIVE NEGATIVE [facility]Urine Glucose (UA)2017-09-25 11:45:00* Test Item Value Reference Range Interpretation Comments Urine Glucose (UA) (test code = 2349-9) NEGATIVE NEGATIVE [facility]Urine Jjmwbrr5978-19-44 11:45:00* Test Item Value Reference Range Interpretation Comments Urine Ketones (test code = 92625-5) NEGATIVE NEGATIVE [facility]Urine Txkbtfuttrtf1447-76-95 11:45:00* Test Item Value Reference Range Interpretation Comments Urine Urobilinogen (test code = 25926-6) 0.2 0.2-1 [facility]Urine Kzecgvsxx2111-12-36 11:45:00* Test Item Value Reference Range Interpretation Comments Urine Bilirubin (test code = 1978-6) NEGATIVE NEGATIVE [facility]Urine Cnazj7997-08-27 11:45:00* Test Item Value Reference Range Interpretation Comments Urine Blood (test code = 90557-1) NEGATIVE NEGATIVE [facility]Total Kfnhqlcuy7154-72-22 11:25:00* Test Item Value Reference Range Interpretation Comments Total Bilirubin (test code = 1975-2) 0.3 0.2-1.2 [facility]HealthAspartate Amino Transf (AST/SGOT) 2017-09-25 11:25:00* Test Item Value Reference Range Interpretation Comments Aspartate Amino Transf (AST/SGOT) (test code = Aspartate Amino Transf (AST/SGOT)) 23 5-34 [facility]HealthAlanine Aminotransferase (ALT/SGPT) 2017-09-25 11:25:00* Test Item Value Reference Range Interpretation Comments Alanine Aminotransferase (ALT/SGPT) (test code = 1742-6) 27 0-55 [facility]Total Gftjxga3736-92-91 11:25:00* Test Item Value Reference Range Interpretation Comments Total Protein (test code = 2885-2) 6.8 6.5-8.1 [facility]Albumin2018-03-05 11:25:00* Test Item Value Reference Range Interpretation Comments Albumin (test code = 1751-7) 3.4 3.5-5.0 L [facility]Globulin2018-03-05 11:25:00* Test Item Value Reference Range Interpretation Comments Globulin (test code = 16919-7) 3.4 2.3-3.5 [facility]Albumin/Globulin Avrvb6767-17-96 11:25:00 * Test Item Value Reference Range Interpretation Comments Albumin/Globulin Ratio (test code = 1759-0) 1.0 0.8-2.0 [facility]HealthAlkaline Qtsrvednvfi0622-85-17 11:25:00* Test Item Value Reference Range Interpretation Comments Alkaline Phosphatase (test code = 6768-6) 67 40-150 [facility] Kczslftsa8779-71-89 11:25:00* Test Item Value Reference Range Interpretation Comments Total Bilirubin (test code = 1975-2) 0.3 0.2-1.2 [facility]HealthAspartate Amino Transf (AST/SGOT) 2017-09-25 11:25:00* Test Item Value Reference Range Interpretation Comments Aspartate Amino Transf (AST/SGOT) (test code = Aspartate Amino Transf (AST/SGOT)) 23 5-34 [facility]HealthAlanine Aminotransferase (ALT/SGPT) 2017-09-25 11:25:00* Test Item Value Reference Range Interpretation Comments Alanine Aminotransferase (ALT/SGPT) (test code = 1742-6) 27 0-55 [facility] Btbldqh8051-75-93 11:25:00* Test Item Value Reference Range Interpretation Comments Total Protein (test code = 2885-2) 6.8 6.5-8.1 [facility]Albumin2018-03-05 11:25:00* Test Item Value Reference Range Interpretation Comments Albumin (test code = 1751-7) 3.4 3.5-5.0 L [facility]Globulin2018-03-05 11:25:00* Test Item Value Reference Range Interpretation Comments Globulin (test code = 96867-4) 3.4 2.3-3.5 [facility]HealthAlbumin/Globulin Btatk2933-30-16 11:25:00 * Test Item Value Reference Range Interpretation Comments Albumin/Globulin Ratio (test code = 1759-0) 1.0 0.8-2.0 [facility]Alkaline Sbyyodqjysp0162-16-32 11:25:00* Test Item Value Reference Range Interpretation Comments Alkaline Phosphatase (test code = 6768-6) 67 40-150 [facility]Bedside Diepino1607-92-10 13:07:00* Test Item Value Reference Range Interpretation Comments Bedside Glucose (test code = 88869-7) 373 70-120 H Meter ID: [id number] [facility] Center[facility] 2017-08-26 07:45:00* Test Item Value Reference Range Interpretation Comments Blood Culture (test code = 47186104) NO GROWTH AFTER 48 HOURS [facility] Uijgt3453-16-05 07:23:00* Test Item Value Reference Range Interpretation Comments Sodium Level (test code = 2951-2) 139 136-145 [facility]Potassium Rhuat2172-58-97 07:23:00* Test Item Value Reference Range Interpretation Comments Potassium Level (test code = 2823-3) 4.7 3.5-5.1 [facility]Chloride Ikuwg0608-10-77 07:23:00* Test Item Value Reference Range Interpretation Comments Chloride Level (test code = 2075-0) 103 98-107 [facility]HealthCarbon Dioxide Hyfoe9033-64-11 07:23:00* Test Item Value Reference Range Interpretation Comments Carbon Dioxide Level (test code = 2028-9) 28 22-29 [facility]Anion Gbp9171-83-19 07:23:00* Test Item Value Reference Range Interpretation Comments Anion Gap (test code = 74168-4) 12.7 8-16 [facility]HealthBlood Urea Blsbjjfs0653-26-39 07:23:00* Test Item Value Reference Range Interpretation Comments Blood Urea Nitrogen (test code = 3094-0) 19 7-26 [facility]HealthCreatinine2018-02-02 07:23:00* Test Item Value Reference Range Interpretation Comments Creatinine (test code = 2160-0) 1.05 0.57-1.11 [facility]HealthBUN/Creatinine Ofrcg2157-81-91 07:23:00* Test Item Value Reference Range Interpretation Comments BUN/Creatinine Ratio (test code = 3097-3) 18 6-25 [facility]HealthEstimat Glomerular Filtration Rate 2017-08-25 07:23:00* Test Item Value Reference Range Interpretation Comments Estimat Glomerular Filtration Rate (test code = 53005-3) 53 >60 L Ranges were taken from the National Kidney Disease Education Program and the [facility] literature.Reference ranges:60 or greater: Usaacd39-45 ( for 3 consecutive months): Chronic kidney disease 15 or less: Kidney failureAdventHealthGlucose Jbkuc8057-19-45 07:23:00* Test Item Value Reference Range Interpretation Comments Glucose Level (test code = PVV1867) 249 74-118 H [facility]Calcium Jgjle6848-28-57 07:23:00* Test Item Value Reference Range Interpretation Comments Calcium Level (test code = 16748-0) 8.8 8.4-10.2 [facility]Total Alvajbewd1102-39-49 07:23:00* Test Item Value Reference Range Interpretation Comments Total Bilirubin (test code = 1975-2) 0.5 0.2-1.2 [facility]HealthAspartate Amino Transf (AST/SGOT) 2017-08-25 07:23:00* Test Item Value Reference Range Interpretation Comments Aspartate Amino Transf (AST/SGOT) (test code = Aspartate Amino Transf (AST/SGOT)) 15 5-34 [facility]HealthAlanine Aminotransferase (ALT/SGPT) 2017-08-25 07:23:00* Test Item Value Reference Range Interpretation Comments Alanine Aminotransferase (ALT/SGPT) (test code = 1742-6) 16 0-55 [facility]HealthTotal Lbjimur8112-56-15 07:23:00* Test Item Value Reference Range Interpretation Comments Total Protein (test code = 2885-2) 6.7 6.5-8.1 [facility]Albumin2018-02-02 07:23:00* Test Item Value Reference Range Interpretation Comments Albumin (test code = 1751-7) 3.3 3.5-5.0 L [facility]Globulin2018-02-02 07:23:00* Test Item Value Reference Range Interpretation Comments Globulin (test code = 30855-8) 3.4 2.3-3.5 [facility]HealthAlbumin/Globulin Kmacp5704-59-51 07:23:00 * Test Item Value Reference Range Interpretation Comments Albumin/Globulin Ratio (test code = 1759-0) 1.0 0.8-2.0 [facility]Alkaline Byljmpdmrty4897-20-91 07:23:00* Test Item Value Reference Range Interpretation Comments Alkaline Phosphatase (test code = 6768-6) 62 40-150 [facility]HealthTriglycerides Vkaph9635-44-00 07:23:00* Test Item Value Reference Range Interpretation Comments Triglycerides Level (test code = 2571-8) 216 0-149 H [facility]Cholesterol Hyhnp8608-69-04 07:23:00* Test Item Value Reference Range Interpretation Comments Cholesterol Level (test code = 2093-3) 181 0-199 Less than 200 mg/dL Low Kyzu390 - 239 mg/dL Borderline Pqhy579 m g/dl and greater High Risk AdventHealthLDL Dlcgffwdprz1278-02-67 07:23:00* Test Item Value Reference Range Interpretation Comments LDL Cholesterol (test code = 2089-1) 109 60-130 [facility] Tilrjnrljpy1885-73-26 07:23:00* Test Item Value Reference Range Interpretation Comments HDL Cholesterol (test code = 2085-9) 29 40-60 L [facility]Cholesterol/HDL Bxlaj6203-97-22 07:23:00 * Test Item Value Reference Range Interpretation Comments Cholesterol/HDL Ratio (test code = 9830-1) 6.2 3.0-3.6 H [facility]HealthTriglycerides Amvqx9415-73-23 07:23:00* Test Item Value Reference Range Interpretation Comments Triglycerides Level (test code = 2571-8) 216 0-149 H [facility]Cholesterol Vxvvj8686-52-80 07:23:00* Test Item Value Reference Range Interpretation Comments Cholesterol Level (test code = 2093-3) 181 0-199 Less than 200 mg/dL Low Warl883 - 239 mg/dL Borderline Jcoa550 m g/dl and greater High Risk AdventHealthLDL Bzguhamfoga9870-01-71 07:23:00* Test Item Value Reference Range Interpretation Comments LDL Cholesterol (test code = 2089-1) 109 60-130 [facility] Byuopszcmty3664-00-66 07:23:00* Test Item Value Reference Range Interpretation Comments HDL Cholesterol (test code = 2085-9) 29 40-60 L [facility]Cholesterol/HDL Ggljb6338-69-82 07:23:00 * Test Item Value Reference Range Interpretation Comments Cholesterol/HDL Ratio (test code = 9830-1) 6.2 3.0-3.6 H [facility]HealthTriglycerides Zlvex4155-61-20 07:23:00* Test Item Value Reference Range Interpretation Comments Triglycerides Level (test code = 2571-8) 216 0-149 H [facility]Cholesterol Phkem5648-21-86 07:23:00* Test Item Value Reference Range Interpretation Comments Cholesterol Level (test code = 2093-3) 181 0-199 Less than 200 mg/dL Low Tlju059 - 239 mg/dL Borderline Chqs408 m g/dl and greater High Risk AdventHealthLDL Uesolfzayde5161-59-87 07:23:00* Test Item Value Reference Range Interpretation Comments LDL Cholesterol (test code = 2089-1) 109 60-130 [facility] Uiwjhzcvjjh9077-61-87 07:23:00* Test Item Value Reference Range Interpretation Comments HDL Cholesterol (test code = 2085-9) 29 40-60 L [facility]Cholesterol/HDL Urvgc6475-16-37 07:23:00 * Test Item Value Reference Range Interpretation Comments Cholesterol/HDL Ratio (test code = 9830-1) 6.2 3.0-3.6 H [facility]HealthTriglycerides Aedwm3619-46-80 07:23:00* Test Item Value Reference Range Interpretation Comments Triglycerides Level (test code = 2571-8) 216 0-149 H [facility] Bdeae7847-45-25 07:23:00* Test Item Value Reference Range Interpretation Comments Cholesterol Level (test code = 2093-3) 181 0-199 Less than 200 mg/dL Low Muox896 - 239 mg/dL Borderline Hvdj396 m g/dl and greater High Risk [facility]LDL Skesdbnlihp4588-52-11 07:23:00* Test Item Value Reference Range Interpretation Comments LDL Cholesterol (test code = 2089-1) 109 60-130 [facility] Wfvhxrfykhs7012-53-62 07:23:00* Test Item Value Reference Range Interpretation Comments HDL Cholesterol (test code = 2085-9) 29 40-60 L [facility]/HDL Raiqz1843-76-22 07:23:00 * Test Item Value Reference Range Interpretation Comments Cholesterol/HDL Ratio (test code = 9830-1) 6.2 3.0-3.6 H [facility] Qygdb3669-13-50 07:23:00* Test Item Value Reference Range Interpretation Comments Triglycerides Level (test code = 2571-8) 216 0-149 H [facility] Lyuxv7593-93-29 07:23:00* Test Item Value Reference Range Interpretation Comments Cholesterol Level (test code = 2093-3) 181 0-199 Less than 200 mg/dL Low Rxtw413 - 239 mg/dL Borderline Pdsp162 m g/dl and greater High Risk [facility]LDL Wjespcjtecs7950-13-22 07:23:00* Test Item Value Reference Range Interpretation Comments LDL Cholesterol (test code = 2089-1) 109 60-130 [facility] Russiuowtyh1747-64-08 07:23:00* Test Item Value Reference Range Interpretation Comments HDL Cholesterol (test code = 2085-9) 29 40-60 L [facility]HDL Remgq4198-60-72 07:23:00 * Test Item Value Reference Range Interpretation Comments Cholesterol/HDL Ratio (test code = 9830-1) 6.2 3.0-3.6 H [facility] Wlbru0242-87-30 07:23:00* Test Item Value Reference Range Interpretation Comments Triglycerides Level (test code = 2571-8) 216 0-149 H [facility] Ibyux3281-55-52 07:23:00* Test Item Value Reference Range Interpretation Comments Cholesterol Level (test code = 2093-3) 181 0-199 Less than 200 mg/dL Low Jmtl668 - 239 mg/dL Borderline Abmu402 m g/dl and greater High Risk [facility]LDL Hicgmpremid2080-40-30 07:23:00* Test Item Value Reference Range Interpretation Comments LDL Cholesterol (test code = 2089-1) 109 60-130 [facility] Zkmklzgbzdl4374-69-81 07:23:00* Test Item Value Reference Range Interpretation Comments HDL Cholesterol (test code = 2085-9) 29 40-60 L [facility]HDL Zmjxv9522-40-20 07:23:00 * Test Item Value Reference Range Interpretation Comments Cholesterol/HDL Ratio (test code = 9830-1) 6.2 3.0-3.6 H [facility] Blood Irqaa9945-54-32 07:08:00* Test Item Value Reference Range Interpretation Comments White Blood Count (test code = 6690-2) 4.69 4.8-10.8 L [facility] Blood Nevun9561-13-48 07:08:00* Test Item Value Reference Range Interpretation Comments Red Blood Count (test code = 789-8) 4.53 3.6-5.1 [facility]emoglobin2018-02-02 07:08:00* Test Item Value Reference Range Interpretation Comments Hemoglobin (test code = 63789-8) 11.9 12.0-16.0 L [facility]Hematocrit2018-02-02 07:08:00* Test Item Value Reference Range Interpretation Comments Hematocrit (test code = 4544-3) 39.4 34.2-44.1 [facility] Corpuscular Gkzpco7125-24-77 07:08:00* Test Item Value Reference Range Interpretation Comments Mean Corpuscular Volume (test code = 787-2) 87.0 81-99 [facility] Corpuscular Nyliynbcbx6371-02-83 07:08:00* Test Item Value Reference Range Interpretation Comments Mean Corpuscular Hemoglobin (test code = 785-6) 26.3 28-32 L [facility] Corpuscular Hemoglobin Concent 2017-08-25 07:08:00* Test Item Value Reference Range Interpretation Comments Mean Corpuscular Hemoglobin Concent (test code = 786-4) 30.2 31-35 L [facility] Cell Distribution Ldpot4568-88-71 07:08:00* Test Item Value Reference Range Interpretation Comments Red Cell Distribution Width (test code = 66756-9) 14.8 11.7 -14.4 H [facility]Platelet Iwpuh0411-07-57 07:08:00* Test Item Value Reference Range Interpretation Comments Platelet Count (test code = 777-3) 177 140-360 [facility]utrophils (%) (Auto)2017-08-25 07:08:00 * Test Item Value Reference Range Interpretation Comments Neutrophils (%) (Auto) (test code = 83176-3) 55.5 38.7-80.0 [facility]Lymphocytes (%) (Auto)2017-08-25 07:08:00 * Test Item Value Reference Range Interpretation Comments Lymphocytes (%) (Auto) (test code = 736-9) 28.8 18.0-39.1 [facility]Monocytes (%) (Auto)2017-08-25 07:08:00* Test Item Value Reference Range Interpretation Comments Monocytes (%) (Auto) (test code = 5905-5) 8.7 4.4-11.3 [facility]osinophils (%) (Auto)2017-08-25 07:08:00 * Test Item Value Reference Range Interpretation Comments Eosinophils (%) (Auto) (test code = 713-8) 5.1 0.0-6.0 [facility]Basophils (%) (Auto)2017-08-25 07:08:00* Test Item Value Reference Range Interpretation Comments Basophils (%) (Auto) (test code = 706-2) 1.3 0.0-1.0 H [facility]HealthIM GRANULOCYTES %2017-08-25 07:08:00* Test Item Value Reference Range Interpretation Comments IM GRANULOCYTES % (test code = IM GRANULOCYTES %) 0.6 0.0- 1.0 [facility]utrophils # (Auto)2017-08-25 07:08:00* Test Item Value Reference Range Interpretation Comments Neutrophils # (Auto) (test code = 751-8) 2.6 2.1-6.9 [facility]Lymphocytes # (Auto)2017-08-25 07:08:00* Test Item Value Reference Range Interpretation Comments Lymphocytes # (Auto) (test code = 91154-7) 1.4 1.0-3.2 [facility]ocytes # (Auto)2017-08-25 07:08:00* Test Item Value Reference Range Interpretation Comments Monocytes # (Auto) (test code = 742-7) 0.4 0.2-0.8 [facility]osinophils # (Auto)2017-08-25 07:08:00* Test Item Value Reference Range Interpretation Comments Eosinophils # (Auto) (test code = 711-2) 0.2 0.0-0.4 [facility]Basophils # (Auto)2017-08-25 07:08:00* Test Item Value Reference Range Interpretation Comments Basophils # (Auto) (test code = 704-7) 0.1 0.0-0.1 [facility]Absolute Immature Granulocyte (auto 2017-08-25 07:08:00* Test Item Value Reference Range Interpretation Comments Absolute Immature Granulocyte (auto (joseph t code = Absolute Immature Granulocyte (auto) 0.03 0-0.1 [facility]Creatine Lyufqb8047-81-22 01:09:00* Test Item Value Reference Range Interpretation Comments Creatine Kinase (test code = 2157-6) 41 29-168 [facility]Creatine Kinase MV8882-92-18 01:09:00* Test Item Value Reference Range Interpretation Comments Creatine Kinase MB (test code = 02506-3) 1.30 0.00-5.00 [facility]Troponin T5156-56-33 01:09:00* Test Item Value Reference Range Interpretation Comments Troponin I (test code = 88203-2) 0.006 0-0.300 [facility]Hemoglobin A1c Lislikk1975-50-44 18:39:00 * Test Item Value Reference Range Interpretation Comments Hemoglobin A1c Percent (test code = Hemoglobin A1c Percent) 7.6 4.0-7.0 H [facility]oglobin A1c Mrrmjsy1614-11-35 18:39:00 * Test Item Value Reference Range Interpretation Comments Hemoglobin A1c Percent (test code = Hemoglobin A1c Percent) 7.6 4.0-7.0 H [facility]Hemoglobin A1c [place]56-65-71 18:39:00 * Test Item Value Reference Range Interpretation Comments Hemoglobin A1c Percent (test code = Hemoglobin A1c Percent) 7.6 4.0-7.0 H [facility]oglobin A1c Qwkrriu0485-60-23 18:39:00 * Test Item Value Reference Range Interpretation Comments Hemoglobin A1c Percent (test code = Hemoglobin A1c Percent) 7.6 4.0-7.0 H [facility]Hemoglobin A1c Tkactrb6530-60-74 18:39:00 * Test Item Value Reference Range Interpretation Comments Hemoglobin A1c Percent (test code = Hemoglobin A1c Percent) 7.6 4.0-7.0 H [facility]Hemoglobin A1c Kekobyw8046-09-01 18:39:00 * Test Item Value Reference Range Interpretation Comments Hemoglobin A1c Percent (test code = Hemoglobin A1c Percent) 7.6 4.0-7.0 H [facility]Hemoglobin A1c Fxzocpm0648-95-54 18:39:00 * Test Item Value Reference Range Interpretation Comments Hemoglobin A1c Percent (test code = Hemoglobin A1c Percent) 7.6 4.0-7.0 H [facility] A1c Mdgwfot8487-14-77 18:39:00 * Test Item Value Reference Range Interpretation Comments Hemoglobin A1c Percent (test code = Hemoglobin A1c Percent) 7.6 4.0-7.0 H [facility]oglobin A1c Ibpqzrb5066-94-63 18:39:00 * Test Item Value Reference Range Interpretation Comments Hemoglobin A1c Percent (test code = Hemoglobin A1c Percent) 7.6 4.0-7.0 H [facility] A1c Cxubqak0991-93-29 18:39:00 * Test Item Value Reference Range Interpretation Comments Hemoglobin A1c Percent (test code = Hemoglobin A1c Percent) 7.6 4.0-7.0 H [facility]Urine SQK7241-84-97 07:50:00* Test Item Value Reference Range Interpretation Comments Urine WBC (test code = 5821-4) 0-5 0-5 [facility] LYV2867-44-79 07:50:00* Test Item Value Reference Range Interpretation Comments Urine RBC (test code = 10086-7) 0-5 0-5 [facility] Iwqfgksd8146-23-60 07:50:00* Test Item Value Reference Range Interpretation Comments Urine Bacteria (test code = 53587-0) FEW NONE [facility]Urine Epithelial Gelps9067-77-14 07:50:00 * Test Item Value Reference Range Interpretation Comments Urine Epithelial Cells (test code = 92674-6) FEW NONE [facility]HealthB-Type Natriuretic Twalzea0336-58-01 07:47:00* Test Item Value Reference Range Interpretation Comments B-Type Natriuretic Peptide (test code = 54964-4) 17.8 0-100 [facility]HealthThyroid Stimulating Hormone (TSH) 2017-08-24 07:47:00* Test Item Value Reference Range Interpretation Comments Thyroid Stimulating Hormone (TSH) (test code = 83230-6) 1.123 0.350-4.940 [facility]Influenza Virus Types A,B Antigen 2017-08-24 07:39:00* Test Item Value Reference Range Interpretation Comments Influenza Virus Types A,B Antigen (test code = 98976-1) NEGATIVE NEGATIVE [facility]Magnesium Mrdet2480-98-09 07:32:00* Test Item Value Reference Range Interpretation Comments Magnesium Level (test code = 10729-6) 2.0 1.3-2.1 [facility] Qukpu9126-80-30 07:32:00* Test Item Value Reference Range Interpretation Comments Magnesium Level (test code = 89367-4) 2.0 1.3-2.1 [facility]Magnesium Adecs9296-74-97 07:32:00* Test Item Value Reference Range Interpretation Comments Magnesium Level (test code = 32672-9) 2.0 1.3-2.1 [facility]Prothrombin Gzvc6199-41-13 07:19:00* Test Item Value Reference Range Interpretation Comments Prothrombin Time (test code = 5902-2) 13.0 11.9-14.5 [facility]Prothromb Time International Ratio 2017-08-24 07:19:00* Test Item Value Reference Range Interpretation Comments Prothromb Time International Ratio (test code = 6301-6) 0.94 Oral Anticoagulant Therapy INR Values:1. Low Intensity Therapy 1.5 - 2.02 . Moderate Intensity Therapy 2.0 - 3.03. High Intensity Therapy(1) 2.5 - 3. 54. High Intensity Therapy(2) 3.0 - 4.05. Panic Value INR > 5.0 [facility]HealthActivated Partial Thromboplast Time 2017-08-24 07:19:00* Test Item Value Reference Range Interpretation Comments Activated Partial Thromboplast Time (test code = 01440-3) 25.1 23.8-35.5 [facility]Urine Kjgnv6329-10-95 07:18:00* Test Item Value Reference Range Interpretation Comments Urine Color (test code = 5778-6) YELLOW YELLOW [facility]Urine Nvwhjut4570-03-22 07:18:00* Test Item Value Reference Range Interpretation Comments Urine Clarity (test code = 08313-8) CLEAR CLEAR [facility]Urine Specific Yyhnqiq9422-02-85 07:18:00 * Test Item Value Reference Range Interpretation Comments Urine Specific [place] (test code = 5811-5) 1.025 1.010-1.02 5 [facility] tB2228-79-17 07:18:00* Test Item Value Reference Range Interpretation Comments Urine pH (test code = 97761-1) 5 5-7 [facility] Leukocyte Dipkmcwt1596-42-81 07:18:00* Test Item Value Reference Range Interpretation Comments Urine Leukocyte Esterase (test code = 5799-2) NEGATIVE NEGATIVE [facility] Dzvjssx6659-40-38 07:18:00* Test Item Value Reference Range Interpretation Comments Urine Nitrite (test code = 71746-5) NEGATIVE NEGATIVE [facility] Lrskuxs6863-01-70 07:18:00* Test Item Value Reference Range Interpretation Comments Urine Protein (test code = 5804-0) NEGATIVE NEGATIVE [facility]Urine Glucose (UA)2017-08-24 07:18:00* Test Item Value Reference Range Interpretation Comments Urine Glucose (UA) (test code = 2349-9) 3+ NEGATIVE H [facility]Urine Ziklssf2805-38-95 07:18:00* Test Item Value Reference Range Interpretation Comments Urine Ketones (test code = 56580-4) NEGATIVE NEGATIVE [facility]Urine Uacrheimiksp5291-91-03 07:18:00* Test Item Value Reference Range Interpretation Comments Urine Urobilinogen (test code = 82780-5) 0.2 0.2-1 [facility] Tfomcroui6026-06-03 07:18:00* Test Item Value Reference Range Interpretation Comments Urine Bilirubin (test code = 1978-6) NEGATIVE NEGATIVE [facility] Relxk8097-41-51 07:18:00* Test Item Value Reference Range Interpretation Comments Urine Blood (test code = 18573-5) NEGATIVE NEGATIVE [facility] RENAL RETROPERITONEAL COMP [place] [address] Patient Name: KALYANI TALAVERA MR #: [id number] : 1955 Age/Sex: 62/F Req #: [id number] Adm Physician: BENJAMIN MASTERS MD Ordered by: BENJAMIN MASTERS MD Report #: [id number] Locat ion: [facility] Room/Bed: [place] [address] Procedure: [id number] U S/US RENAL RETROPERITONEAL COMP Exam Date: [...] TO: BENJAMIN MASTERS MD CT BRAIN WO [place] [address] Patient Name: KALYANI TALAVERA MR #: [id number] : 1955 Age/Sex: 62/F Req #: [id number] Adm Physician: Ordered by: FLO TOLBERT MD Report #: [id number] Location: ER Room/Bed: Procedure: [id number] CT/CT BRAIN WO Exam Date: Exam Time: [...] TO: Treasure TOLBERT MD CHEST [address] [facility] [address] [place] [address] Patient Name: KALYANI TALAVERA MR #: [id number] : 1955 Age/Sex: 62/F Req #: [id number] Adm Physician: Ordered by: FLO TOLBERT MD Report #: [id number] Location: ER Room/Bed: Procedure: [id number] DX/CHEST 2 VIEWS Exam Date: 12/23/17 Exam [...] FLO TOLBERT MD KNEE LEFT THREE VIEWS [facility] [address] [place] [address] Patient Name: KALYANI TALAVERA MR #: [id number] : 1955 Age/Sex: 62/F Req #: [id number] Adm Physician: Ordered by: JACQUES JANE MD Report #: [id number] Location: ER Room/Bed: Procedure: [id number] DX/KNEE LEFT THREE VIE WS Exam Date: [...] JACQUES JANE MD PELVIS AP 1-2 VIEWS [place] [address] Patient Name: KALYANI TALAVERA MR #: [id number] : 1955 Age/Sex: 62/F Req #: [id number] Adm Physician: Ordered by: JACQUES JANE MD Report #: [id number] Location: ER Room/Bed: Procedure: [id number] DX/PELVIS AP 1-2 VIEWS Exam Date: 10/31/17 Exam Time: [address] [facility]: Signed EXAM: PELVIS AP [...] TO: JACQUES JANE MD CHEST 2 VIEWS [place] [address] Patient Name: KALYANI TALAVERA MR #: [id number] : 1955 Age/Sex: 62/F Req #: [id number] Adm Physician: Ordered by: FLO TOLBERT MD Report #: [id number] Location: ER Room/Bed: Procedure: [id number] DX/CHEST 2 VIEWS Exam Date: 10/12/17 Exam [...] COPY TO: FLO TOLBERT MD FOOT RIGHT [place] [address] Patient Name: KALYANI TALAVERA MR #: [id number] : 1955 Age/Sex: 62/F Req #: [id number] Adm Physician: Ordered by: JEFFREY MCDUFFIE MD Report #: [id number] Location: ER Room/Bed: Procedure: [id number] DX/FOOT RIGHT COMPLETE Exa m Date: 10/11/17 [...] on 2017 at 8:39 Dictated By: JACINDA EASTAMN MD 8 Transcribed By: ZOLTAN on 10/11/17838 COPY TO: JEFFREY MCDUFFIE MD KNEE LEFT THREE VIEWS [place] [address] Patient Name: KALYANI TALAVERA MR #: [id number] : 1955 Age/Sex: 62/F Req #: [id number] Adm Physician: Ordered by: JEFFREY MCDUFIFE MD Report #: [id number] Location: ER Room/Bed: Procedure: [id number] DX/KNEE LEFT THREE VIEWS E xam Date: [...] TO: JEFFREY MCDUFFIE MD CT CHEST WO [address], [place] [address] Patient Name: KALYANI TALAVEAR MR #: [id number] : 1955 Age/Sex: 62/F Req #: [id number] Adm Physician: Ordered by: RAFAELA ASTUDILLO NP Report #: [id number] Location: ER Room/Bed: Procedure: [id number] CT/CT CHEST WO Exam Date: Exam Time: [...] PM Dictated B y: SHIRLEY BRANDON MD 1308 Transcribed By: JIM on 09/25/17 130 COPY TO: RAFAELA ASTUDILLO ASSISTANT TENNIS COACH CHEST SINGLE (PORTABLE) [place] [address] Patient Name: KALYANI TALAVERA MR #: [id number] : 1955 Age/Sex: 62/F Req #: [id number] Adm Physician: Ordered by: RAFAELA ASTUDILLO ASSISTANT TENNIS COACH Report #: [id number] Location: ER Room/Bed: Procedure: [id number] DX/CHEST SINGLE (PORTABLE) E xam Date: 09/25/17 [...] 09/25/17 1106 COPY TO: RAFAELA ASTUDILLO ASSISTANT TENNIS COACH CHEST 2 VIEWS [place] [address] Patient Name: KALYANI TALAVERA MR #: [id number] : 1955 Age/Sex: 62/F Req #: [id number] Adm Physician: Ordered by: FLO TOLBERT MD Report #: [id number] Location: ER Room/Bed: Procedure: [id number] DX/CHEST 2 VIEWS Exam Date: Exam Time: 0715 REPORT STATUS: Signed PROCEDURE: CHEST 2 VIEWS TECHNIQUE: PA and lateral chest totaling 2 radio graphs INDICATION: Shortness of breath and syncope COMPARISON: [facility], DX, CHEST 2 VIEWS, 10/15/2016, [...] AILEEN TOLBERT MD CT CERVICAL SPINE WO [place] [address] Patient Name: KALYANI TALAVERA MR #: [id number] : 1955 Age/Sex: 62/F Req #: [id number] Adm Physician: Ordered by: FLO TOLBERT MD Report #: [id number] Location: ER Room/Bed: Procedure: [id number] CT/CT CERVICAL SPINE WO Exam D ate: [...] TO: FLO TOLBERT MD CT BRAIN WO [place] [address] Patient Name: KALYANI TALAVERA MR #: [id number] : 0 1955 Age/Sex: 62/F Req #: [id number] Adm Physician: Ordered by: FLO TOLBERT MD Report #: [id number] Location: ER Room/Bed: Procedure: [id number] CT/CT BRAIN WO Exam Date: 08/10 Exam [...] 7:54 AM Dictated By: RILEY WYNN MD [facility] Signed By: RILEY WYNN MD on 08/24/17 0754 Transcribed By: JIM on 08/24/17 0751 COPY TO: FLO TOLBERT MD
== END 2020-05-26 21:42 | disposition home or self-care (01) ==
LOC: ER 20:20
DX: R10.13 Epigastric pain (principal); K62.5 Hemorrhage of anus and rectum; E11.65 Type 2 diabetes mellitus with hyperglycemia; I10 Essential (primary) hypertension; I50.9 Heart failure, unspecified; I48.91 Unspecified atrial fibrillation; E78.5 Hyperlipidemia, unspecified; K21.9 Gastro-esophageal reflux disease without esophagitis; F41.9 Anxiety disorder, unspecified; Z99.81 Dependence on supplemental oxygen
CPT/HCPCS: 36415; 74177; 80053; 81001; 82948; 83690; 85025; 86850; 86900; 93005; 99284; J1817; J3010; J7030; Q9967

== ENCOUNTER 2020-07-18 14:39 | Emergency (ER) | payer OTHER ==
[~2020-07-18] VITALS: Ht 160 cm; Wt 108.9 kg
[2020-07-18] MEDS ORDERED: ALBUTEROL/IPRATROPIUM 3 ML NEB NEB ONE (16:15)
[2020-07-18] MEDS ORDERED: METHYLPREDNISOLONE SOD SUCC 125 MG/2ML VIAL IV NR (16:15)
[2020-07-18 16:27] LABS: BASOPHILS # (AUTO) 0.1 (0.0-0.1); BASOPHILS % 1.1 % (0.0-1.0); EOSINOPHILS # (AUTO) 0.2 (0.0-0.4); EOSINOPHILS % 4.5 % (0.0-6.0); HEMATOCRIT 37.4 % (34.2-44.1); HEMOGLOBIN 11.1 g/dL (12.0-16.0); LYMPHOCYTES # (AUTO) 1.1 (1.0-3.2); LYMPHOCYTES % 24.5 % (18.0-39.1); MEAN CORPUSCULAR HGB CONC 29.7 g/dL (31-35); MEAN CORPUSCULAR VOLUME 84.2 fL (81-99); MONOCYTES # (AUTO) 0.2 (0.2-0.8); MONOCYTES % 5.3 % (4.4-11.3); NEUTROPHILS # (AUTO) 2.8 (2.1-6.9); PLATELET COUNT 143 x10e3/uL (140-360); RED BLOOD COUNT 4.44 x10e6/uL (3.6-5.1); RED CELL DISTRIBUTION WIDTH 16.6 % (11.7-14.4)
[2020-07-18 16:40] LABS: INR 0.84; PARTIAL THROMBOPLASTIN TIME 25.2 seconds (23.8-35.5); PROTHROMBIN TIME 11.9 seconds (11.9-14.5)
[2020-07-18 16:48] LABS: ALANINE AMINOTRANSFERASE 34 IU/L (0-55); ALBUMIN 3.3 g/dL (3.5-5.0); ALKALINE PHOSPHATASE 108 IU/L (40-150); ANION GAP 14.3 mmol/L (8-16); BLOOD UREA NITROGEN 35 mg/dL (7-26); BUN/CREATININE RATIO 38 (6-25); CALCIUM 8.9 mg/dL (8.4-10.2); CARBON DIOXIDE 29 mmol/L (22-29); CHLORIDE 105 mmol/L (98-107); CREATINE KINASE 55 IU/L (29-168); CREATININE, SERUM 0.92 mg/dL (0.57-1.11); EST GLOMERULAR FILTRATION RATE > 60 ML/MIN (60-); POTASSIUM 4.3 mmol/L (3.5-5.1); SODIUM 144 mmol/L (136-145)
[2020-07-18 16:49] LABS: GLUCOSE 59 mg/dL (74-118)
[2020-07-18] MEDS ORDERED: FUROSEMIDE INJ 10 MG/ML 4 ML VIAL IV ONE (17:30)
== END 2020-07-18 18:07 | disposition home or self-care (01) ==
LOC: ER 15:09
DX: J44.9 Chronic obstructive pulmonary disease, unspecified (principal); I50.9 Heart failure, unspecified; I10 Essential (primary) hypertension; E11.9 Type 2 diabetes mellitus without complications; E78.5 Hyperlipidemia, unspecified
CPT/HCPCS: 36415; 71045; 80053; 82550; 82553; 82948; 83880; 84484; 85025; 85610; 85730; 93005; 94640; 99284; J1940; J2930

== ENCOUNTER 2020-10-28 17:48 | Emergency (ER) | payer OTHER ==
[~2020-10-28] VITALS: Ht 160 cm; Wt 108.9 kg
[2020-10-28] MEDS ORDERED: ONDANSETRON HCL INJ 2MG/ML 2ML 2 MG/ML VIAL IV STA ×2 (17:54→19:46)
[2020-10-28] MEDS ORDERED: DICYCLOMINE HCL 20 MG/2 ML VIAL IM ONE (18:00)
[2020-10-28 19:27] LABS: ALANINE AMINOTRANSFERASE 32 IU/L (0-55); ALBUMIN 2.5 g/dL (3.5-5.0); ALBUMIN/GLOBULIN RATIO 0.7 (0.8-2.0); ALKALINE PHOSPHATASE 383 IU/L (40-150); BLOOD UREA NITROGEN 30 mg/dL (7-26); BUN/CREATININE RATIO 38 (6-25); CALCIUM 8.6 mg/dL (8.4-10.2); CARBON DIOXIDE 20 mmol/L (22-29); CHLORIDE 108 mmol/L (98-107); CREATINE KINASE 19 IU/L (29-168); EST GLOMERULAR FILTRATION RATE > 60 ML/MIN (60-); GLUCOSE 318 mg/dL (74-118); SODIUM 139 mmol/L (136-145)
[2020-10-28 19:30] LABS: AMYLASE 26 U/L (25-125); LIPASE 28 U/L (8-78)
[2020-10-28 20:12] LABS: BASOPHILS % 0.5 % (0.0-1.0); EOSINOPHILS # (AUTO) 0.1 (0.0-0.4); EOSINOPHILS % 1.2 % (0.0-6.0); HEMATOCRIT 29.4 % (34.2-44.1); HEMOGLOBIN 8.9 g/dL (12.0-16.0); LYMPHOCYTES # (AUTO) 0.5 (1.0-3.2); LYMPHOCYTES % 11.9 % (18.0-39.1); MEAN CORPUSCULAR HEMOGLOBIN 25.5 pg (28-32); MEAN CORPUSCULAR HGB CONC 30.3 g/dL (31-35); MEAN CORPUSCULAR VOLUME 84.2 fL (81-99); MONOCYTES # (AUTO) 0.2 (0.2-0.8); MONOCYTES % 4.5 % (4.4-11.3); NEUTROPHILS # (AUTO) 3.3 (2.1-6.9); NEUTROPHILS % 77.6 % (38.7-80.0); PLATELET COUNT 161 x10e3/uL (140-360); RED BLOOD COUNT 3.49 x10e6/uL (3.6-5.1); RED CELL DISTRIBUTION WIDTH 16.5 % (11.7-14.4)
[2020-10-28] MEDS ORDERED: MORPHINE SULFATE INJ 2 MG/ML SYR IV STA (21:12)
[2020-10-28] MEDS ORDERED: CEFEPIME 2 GM/NS 0.9% 100 ML 100 ML IV SCH (22:00)
[2020-10-28] MEDS ORDERED: SODIUM CHLORIDE 0.9% 50ML 50 ML ONE (22:33)
[2020-10-28] MEDS ORDERED: IOPAMIDOL 370 MG/ML 200 ML INFUS..BTL INJ ONE (22:34)
== END 2020-10-29 03:50 | disposition other institution (70) ==
LOC: ER 18:45
DX: U07.1 COVID-19 (principal); J18.9 Pneumonia, unspecified organism; E11.65 Type 2 diabetes mellitus with hyperglycemia; K81.0 Acute cholecystitis; K82.A1 Gangrene of gallbladder in cholecystitis; R10.11 Right upper quadrant pain; R11.2 Nausea with vomiting, unspecified; I10 Essential (primary) hypertension; I50.9 Heart failure, unspecified; E78.5 Hyperlipidemia, unspecified; K21.9 Gastro-esophageal reflux disease without esophagitis; Z99.81 Dependence on supplemental oxygen
CPT/HCPCS: 36415; 74177; 76705; 80053; 82150; 82550; 82553; 82948; 83690; 84484; 85025; 93005; 99284; J0500; J2270; J2405; Q9967; U0002